=== PATIENT | female | born 1950 | race Two or more races ===

== ENCOUNTER 2023-01-28 03:09 | Outpatient (REF) | payer OTHER, SELFPAY ==
[2023-01-28 10:00] LABS: Basophils Absolute Auto 0.1 10^3/uL (0.0-0.1); Eosinophils Absolute Auto 0.2 10^3/uL (0.0-0.7); Eosinophils Percent Auto 3.4 % (0.9-7.0); Hematocrit 29.1 % (36.0-48.0); Hemoglobin 9.4 g/dL (12.0-16.0); Immature Granulocytes Abs Auto 0.01 10^3/uL (0.00-0.03); Immature Granulocytes Pct Auto 0.2 % (0.0-0.5); Lymphocytes Absolute Auto 1.8 10^3/uL (1.2-3.8); Lymphocytes Percent Auto 41.1 % (20.5-60.0); Mean Corpuscular HGB Conc 32.3 g/dL (29.9-35.2); Mean Corpuscular Hemoglobin 34.2 pg (26.7-34.0); Mean Platelet Volume 8.8 fL (9.5-13.5); Monocytes Absolute Auto 0.3 10^3/uL (0.3-0.8); Monocytes Percent Auto 5.7 % (1.7-12.0); Neutrophils Absolute Auto 2.1 10^3/uL (1.4-6.5); Neutrophils Percent Auto 47.6 % (43.0-75.0); Platelet Count 251 10^3/uL (150-450); Red Blood Count 2.75 10^6/uL (4.20-5.40); Red Cell Distribution Width 16.3 % (11.0-15.0); White Blood Count 4.4 10^3/uL (4.0-11.0)
[2023-01-28 10:01] LABS: Mean Corpuscular Volume 105.8 fL (81.0-99.0)
[2023-01-28 11:19] LABS: Alanine Aminotransferase 11 U/L (14-59); Albumin Globulin Ratio 0.6; Albumin Level 2.4 g/dL (3.4-5.0); Alkaline Phosphatase 121 U/L (46-116); Anion Gap 11.3; Aspartate Amino Transferase 12 U/L (15-37); BUN Creatinine Ratio 24.5; Bilirubin Total 0.3 mg/dL (0.2-1.0); Calcium 8.7 mg/dL (8.5-10.1); Carbon Dioxide 24.4 mmol/L (21.0-32.0); Chloride 105 mmol/L (98-107); Estimated GFR (African America 27 (>=60); Estimated GFR (Non-African Ame 22 (>=60); Globulin 4.2 g/dL; Glucose 149 mg/dL (74-106); Potassium 4.7 mmol/L (3.5-5.1); Sodium 136 mmol/L (136-145); Total Protein 6.6 g/dL (6.4-8.2)
== END 2023-01-28 03:10 | disposition home or self-care (01) ==
LOC: LAB 03:09
PROVIDERS: PCP Family Medicine; Visit Provider Family Medicine
DX: Z85.3 Personal history of malignant neoplasm of breast (principal)
CPT/HCPCS: 36415; 80053; 85025; 86300

== ENCOUNTER 2023-03-01 00:26 | Outpatient (REF) | payer OTHER, SELFPAY ==
[2023-03-01 08:51] LABS: Basophils Absolute Auto 0.1 10^3/uL (0.0-0.1); Eosinophils Absolute Auto 0.1 10^3/uL (0.0-0.7); Hematocrit 30.1 % (36.0-48.0); Hemoglobin 9.5 g/dL (12.0-16.0); Immature Granulocytes Abs Auto 0.01 10^3/uL (0.00-0.03); Immature Granulocytes Pct Auto 0.2 % (0.0-0.5); Lymphocytes Absolute Auto 1.4 10^3/uL (1.2-3.8); Lymphocytes Percent Auto 34.5 % (20.5-60.0); Mean Corpuscular HGB Conc 31.6 g/dL (29.9-35.2); Mean Corpuscular Hemoglobin 34.2 pg (26.7-34.0); Mean Corpuscular Volume 108.3 fL (81.0-99.0); Mean Platelet Volume 8.9 fL (9.5-13.5); Monocytes Absolute Auto 0.2 10^3/uL (0.3-0.8); Monocytes Percent Auto 4.2 % (1.7-12.0); Neutrophils Absolute Auto 2.2 10^3/uL (1.4-6.5); Neutrophils Percent Auto 55.1 % (43.0-75.0); Platelet Count 223 10^3/uL (150-450); Red Blood Count 2.78 10^6/uL (4.20-5.40); Red Cell Distribution Width 14.6 % (11.0-15.0); White Blood Count 4.1 10^3/uL (4.0-11.0)
[2023-03-01 09:09] LABS: Alanine Aminotransferase 24 U/L (14-59); Albumin Globulin Ratio 0.7; Albumin Level 2.7 g/dL (3.4-5.0); Alkaline Phosphatase 117 U/L (46-116); Anion Gap 13.7; Aspartate Amino Transferase 15 U/L (15-37); BUN Creatinine Ratio 23.2; Bilirubin Total 0.3 mg/dL (0.2-1.0); Calcium 8.6 mg/dL (8.5-10.1); Carbon Dioxide 25.6 mmol/L (21.0-32.0); Chloride 105 mmol/L (98-107); Estimated GFR (African America 45 (>=60); Estimated GFR (Non-African Ame 37 (>=60); Globulin 3.8 g/dL; Glucose 181 mg/dL (74-106); Potassium 4.3 mmol/L (3.5-5.1); Sodium 140 mmol/L (136-145); Total Protein 6.5 g/dL (6.4-8.2)
== END 2023-03-01 00:27 | disposition home or self-care (01) ==
LOC: LAB 00:26
PROVIDERS: PCP Family Medicine; Visit Provider Family Medicine
DX: Z51.81 Encounter for therapeutic drug level monitoring (principal); Z85.3 Personal history of malignant neoplasm of breast
CPT/HCPCS: 36415; 80053; 85025; 86300

== ENCOUNTER 2023-04-01 05:58 | Outpatient (REF) | payer OTHER, SELFPAY ==
[2023-04-01 09:21] LABS: Hematocrit 31.2 % (36.0-48.0); Hemoglobin 10.1 g/dL (12.0-16.0); Mean Corpuscular HGB Conc 32.4 g/dL (29.9-35.2); Mean Corpuscular Hemoglobin 34.7 pg (26.7-34.0); Mean Corpuscular Volume 107.2 fL (81.0-99.0); Mean Platelet Volume 9.3 fL (9.5-13.5); Platelet Count 155 10^3/uL (150-450); Red Blood Count 2.91 10^6/uL (4.20-5.40); Red Cell Distribution Width 13.4 % (11.0-15.0); White Blood Count 4.4 10^3/uL (4.0-11.0)
[2023-04-01 09:45] LABS: Alanine Aminotransferase 35 U/L (14-59); Albumin Globulin Ratio 0.7; Albumin Level 2.7 g/dL (3.4-5.0); Alkaline Phosphatase 129 U/L (46-116); Anion Gap 11.2; Aspartate Amino Transferase 27 U/L (15-37); BUN Creatinine Ratio 23.7; Bilirubin Total 0.3 mg/dL (0.2-1.0); Calcium 8.7 mg/dL (8.5-10.1); Carbon Dioxide 25.9 mmol/L (21.0-32.0); Chloride 106 mmol/L (98-107); Estimated GFR (African America 48 (>=60); Estimated GFR (Non-African Ame 40 (>=60); Globulin 3.7 g/dL; Glucose 118 mg/dL (74-106); Potassium 5.1 mmol/L (3.5-5.1); Segmented Neut Absolute Manual 1.67 10^3/uL (1.4-6.5); Sodium 138 mmol/L (136-145); Total Protein 6.4 g/dL (6.4-8.2)
[2023-04-01 09:46] LABS: Anisocytosis 1+; Basophils Abs Manual 0.04 10^3/uL (0.00-0.10); Eosinophils Absolute Manual 0.13 10^3/uL (0.00-0.70); Lymphocytes Absolute Manual 2.28 10^3/uL (1.20-3.80); Macrocytosis 1+; Monocytes Absolute Manual 0.26 10^3/uL (0.30-0.80)
== END 2023-04-01 05:59 | disposition home or self-care (01) ==
LOC: LAB 05:58
PROVIDERS: PCP Family Medicine; Visit Provider Family Medicine
DX: I10 Essential (primary) hypertension (principal); Z85.3 Personal history of malignant neoplasm of breast
CPT/HCPCS: 36415; 80053; 85027

== ENCOUNTER 2023-05-01 08:25 | Outpatient (REF) | payer OTHER, SELFPAY ==
--- OUTSIDE RECORDS SUMMARY | 2023-05-01 08:31 | XMS_ITS | CCD ---
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 Name Role Phone Rickey Askew Primary Care Physician [phone] Eva Beard Unavailable Unavailable Zaheer Sloan Attending Unavailable Zaheer Sloan Admitting Unavailable Georgina, Gavino Alfonso Consulting Unavailable Mariia LOPEZ Admitting Unavailable yWatt Murray Attending Unavailable Erickson, Gavino T Consulting Unavailable MARCEL ALVAREZ Consulting Unavailable Erickson, Gavino T Consulting Unavailable Erickson, Gavino T Consulting Unavailable Erickson, Gavino T Consulting Unavailable Erickson, Gavino T Consulting Unavailable Erickson, Gavino T Consulting Unavailable Erickson, Gavino T Consulting Unavailable Erickson, Gavino T Consulting Unavailable Erickson, Gavino T Consulting Unavailable Erickson, Gavino T Consulting Unavailable David Tong Attending Unavailable Radha, Nohemi Gerard Referring Unavailable Trayboske, Nohemi Gerard Attending Unavailable Demboske, [facility] Nohemi Gerard Admitting U navailable Adamowicz, Senthil Admitting Unavailable Adamowicz, Senthil Attending Unavailable Adamowicz, Senthil Attending Unavailable Adamowicz, Senthil Admitting Unavailable Lorie Slater Attending Unavailable aSmmy QUEZADA Attending Unavailable PILAR, Sammy Attending Unavailable Pedro Nava Attending Unavailable Jeffery Murphy Attending Unavailable Trayboske, Nohemi Gerard Attending Unavailable Adamowicz, Senthil Attending Unavailable Adamowicz, Senthil Attending Unavailable Mgowicz, Senthil Attending Unavailable Mgowicz, Senthil Attending Unavailable Sammy QUEZADA Attending Unavailable Adamowicz, Senthil Admitting Unavailabl e Adamowicz, Senthil Referring Unavailable Adamowicz, Senthil Attending Unavailable Adamowicz, Senthil Admitting Unavailable Adamowicz, Senthil Attending Unavailable Adamowicz, Senthil Admitting Unavailable Adamowicz, Senthil Attending Unavailable Allergies Allergy Classification Reported Allergen(s) Allergy Type Date of Onset Reaction(s) Facility (20 sources) Bee/Wasp/Ant venom; Translations: [Bee Stings] Drug allergy Dyspnea (finding) [facility] Work Phone: (20 sources) Penicillins; Translations: [penicillins] Drug allergy Dyspnea (finding) [facility] Work Phone: (20 sources) Sulfonamides (Antibiotic); Translations: [sulfa drugs] Drug allergy Dyspnea (finding) [facility] Work Phone: Medications Current Medications Medication Drug Class(es) Dates Sig (Normalized) Sig (Original) acetaminophen 500 mg oral tablet (6 sources) Start: 11-13-2022 take 2 tablets by mouth every six hours acetaminophen 500 mg Tab 1,000 mg = 2 tab(s), Oral, q6hr, Refills(s) 0 Start Date: 11/13/22 Status: Ordered anastrozole 1 mg oral tablet (20 sources) Aromatase Inhibitor Start: 08-01-2021 take 1 tablet by mouth once daily anastrozole 1 mg Tab 1 mg = 1 tab(s), Oral, Daily, # 30 tab(s), Refills(s) 11, called to pharmacy (Rx) Start Date: 10/29/22 Status: Ordered cephalexin 500 mg oral capsule (2 sources) Cephalosporin Antibacterial Start: 12-19-2022 End: 12-26-2022 take 1 capsule by mouth four times daily Keflex 500 mg Cap 500 mg = 1 cap(s), Oral, QID, X 7 day(s), # 28 cap(s), Refills(s) 0, Pharmacy: [facility], 167.6, cm, 12/19/22 20:43:00 EDT, Height/Length Dosing, 87.1, kg, 12/19/22 20:43:00 EDT, Weight Dosing Start Date: 12/19/22 Stop Date: 12/26/22 Status: Ordered Cinnamon Preparation (19 sources) Non-Standardized Food Allergenic Extract Start: 09-07-2021 Cinnamon 1,000 mg, Daily, Refills(s) 0 Start Date: 09/07/21 Status: Ordered Fish Oils (20 sources) Start: 07-03-2021 take 1 capsule by mouth once daily Fish Oil 1000 mg oral capsule 1,000 mg = 1 cap(s), Oral, Daily, Refills(s) 0 Start Date: 07/03/21 Status: Ordered furosemide 40 mg oral tablet (20 sources) Loop Diuretic Start: 07-03-2021 take 1 tablet by mouth once daily furosemide 40 mg Tab 40 mg = 1 tab(s), Oral, Daily, Refills(s) 0 Start Date: 07/03/21 Status: Ordered Kisqali (200 mg daily dose) (20 sources) Start: 09-07-2021 Kisqali (200 mg daily dose) 200 mg, TID, Refills(s) 0 Start Date: 09/07/21 Status: Ordered melatonin 5 mg oral tablet (6 sources) Start: 11-13-2022 take 1 tablet by mouth once daily at bedtime as needed melatonin 5 mg oral tablet 5 mg = 1 tab(s), Oral, Once a day (at bedtime), PRN for insomnia, # 60 tab(s), Refills(s) 0 Start Date: 11/13/22 Status: Ordered ondansetron 8 mg oral tablet (20 sources) Serotonin-3 Receptor Antagonist Start: 08-24-2021 take 1 tablet by mouth every eight hours as needed for nausea ondansetron 8 mg Tab 8 mg, Oral, q8hr, PRN Nausea, # 30 tab(s), Refills(s) 3, Pharmacy: [facility], 162.5, cm, 08/10/21 12:38:00 EDT, Height/Length Dosing, 96.5, kg, 08/10/21 12:38:00 EDT, Weight Dosing Start Date: 08/24/21 Status: Ordered oxyCODONE hydrochloride 5 mg oral tablet (1 source) Opioid Agonist Start: 12-17-2022 End: 12-20-2022 take 1 tablet by mouth every six hours oxyCODONE 5 mg Tab 5 mg = 1 tab(s), Oral, q6hr, X 3 day(s), # 15 tab(s), Refills(s) 0, Pharmacy: [facility], 168, cm, 12/17/22 10:29:00 EDT, Height/Length Dosing, 87, kg, 12/17/22 10:29:00 EDT, Weight Dosing Start Date: 12/17/22 Stop Date: 12/20/22 Status: Ordered ribociclib 200 mg oral tablet (20 sources) Start: 05-09-2022 Kisqali (200 mg daily dose) oral tablet See Instructions, 2 tab(s) take for 21 days, withhold for 7 days, then repeat cycle. 11 REFILLS, # 42 tab(s), Refills(s) 1, called to pharmacy (Rx) Start Date: 05/09/22 Status: Ordered Start: 03-29-2022 Kisqali (400 m g daily dose) oral tablet See Instructions, 1 tab by mouth for 21 days, withhold for 7 days then repeat cycle., # 21 tab(s), Refills(s) 1, Pharmacy: [facility], 162.5, cm, 03/28/22 14:05:00 EST, Height/Length Dosing, 96.6, kg, 03/28/22 14:05:00 EST, Weight Do... Start Date: 03/29/22 Status: Ordered Start: 12-27-2021 ribociclib 200 mg oral tablet See Instructions, take 1 tab(s) po days 1-21 take for 21 days, withhold for 7 days, then repeat cycle, # 21 tab(s), Refills(s) 11, called to pharmacy (Rx) Start Date: 03/14/22 Status: Ordered simvastatin 40 mg oral tablet (20 sources) HMG-CoA Reductase Inhibitor Start: 07-03-2021 take 1 tablet by mouth once daily at bedtime simvastatin 40 mg Tab 40 mg = 1 tab(s), Oral, Once a day (at bedtime), Refills(s) 0 Start Date: 07/03/21 Status: Ordered Vitamin B12 1000 mcg Tab (9 sources) Start: 09-27-2022 take 1 tablet by mouth once daily Vitamin B12 1000 mcg Tab 1,000 mcg = 1 tab(s), Oral, Daily, # 30 tab(s), Refills(s) 11, Pharmacy: [facility], 162, cm, 09/08/22 15:14:00 EDT, Height/Length Dosing, 96.4, kg, 09/27/22 13:43:00 EDT, Weight Dosing Start Date: 09/27/22 Status: Ordered Vitamin D3 2000 intl units oral tablet (6 sources) Start: 12-14-2022 take 1 tablet by mouth once daily Vitamin D3 2000 intl units oral tablet 50 mcg = 1 tab(s), Oral, Daily, # 90 tab(s), Refills(s) 4, Pharmacy: [facility], 167, cm, 11/01/22 20:02:00 EDT, Height/Length Dosing, 90.3, kg, 11/01/22 20:02:00 EDT, Weight Dosing Start Date: 12/14/22 Status: Ordered Completed/Discontinued Medications Medication Drug Class(es) Dates Sig (Normalized) Sig (Original) ergocalciferol 1.25 mg oral capsule (2 sources) Provitamin D2 Compound Start: 11-04-2022 take 1 capsule by mouth once daily ergocalciferol 50,000 intl units Cap 50,000 International_Unit = 1 cap(s), Oral, q7day, x 8 wks then 2000 units daily, # 7 cap(s), Refills(s) 0, Pharmacy: [facility], 167, cm, 11/01/22 20:02:00 EDT, Height/Length Dosing, 90.3, kg, 11/01/22 20:02:00 EDT, Weight Dosing Start Date: 11/04/22 Status: Ordered Start: 11-04-2022 ergocalciferol 50,000 intl units Cap 50,000 International_Unit = 1 cap(s), Oral, q7day, # 7 cap(s), Refills(s) 0, Pharmacy: [facility], 167, cm, 11/01/22 20:02:00 EDT, Height/Length Dosing, 90.3, kg, 11/01/22 20:02:00 EDT, Weight Dosing Start Date: 11/04/22 Status: Ordered Insulin Lispro (3 sources) Insulin Analog Start: 12-23-2022 End: 12-23-2022 Insulin Lispro Sliding Scale 0-10 Unit(s), Injection-Insulin, SubCutaneous, Start date 12/23/22 7:30:00 EDT Start Date: 12/23/22 Stop Date: 12/23/22 Status: Completed Start: 12-22-2022 End: 12-22-2022 Insulin Lispro Sliding Scale 0-10 Unit(s), Injection-Insulin, SubCutaneous, Start date 12/22/22 16:30:00 EDT Start Date: 12/22/22 Stop Date: 12/22/22 Status: Completed Start: 12-22-2022 End: 12-22-2022 Insulin Lispro Sliding Scale 0-10 Unit(s), Injection-Insulin, SubCutaneous, Start date 12/22/22 11:30:00 EDT Start Date: 12/22/22 Stop Date: 12/22/22 Status: Completed lisinopril 10 mg oral tablet (20 sources) Angiotensin Converting Enzyme Inhibitor Start: 12-23-2022 End: 12-23-2022 lisinopril 10 mg Tab 10 mg = 1 tab(s), Tab, Oral, Start date 12/23/22 9:00:00 EDT, 12/20/22 20:32:00 EDT Start Date: 12/23/22 Stop Date: 12/23/22 Status: Completed Start: 11-04-2022 End: 11-04-2022 lisinopril 10 mg Tab 10 mg = 1 tab(s), Tab, Oral, Start date 11/04/22 9:00:00 EDT, 11/02/22 12:05:00 EDT Start Date: 11/04/22 Stop Date: 11/04/22 Status: Completed Start: 07-18-2021 take 1 tablet by pio th once daily lisinopril 10 mg Tab 10 mg = 1 tab(s), Oral, Daily, Refills(s) 0 Start Date: 07/18/21 Status: Ordered Start: 07-03-2021 take 1 tablet by pio th once daily lisinopril 5 mg Tab 5 mg = 1 tab(s), Oral, Daily, Refills(s) 0 Start Date: 07/03/21 Status: Ordered Problems Problem Classification Problem Date Documented Date Episodic/Chronic Allergic reactions (1 source) Urticaria; Translations: [Other urticaria] Onset: 09-03-2021 Episodic Cancer of breast (20 sources) Malignant neoplasm of upper-outer quadrant of right female breast; Translations: [Malignant neoplasm of upper-outer quadrant of female breast] Onset: 07-11-2021 Chronic Cancer of breast (10 sources) Personal history of malignant neoplasm of breast; Translations: [History of malignant neoplasm of breast] Onset: 11-02-2022 Episodic Cancer of colon (1 source) Malignant tumor of colon; Translations: [Malignant neoplasm of colon, unspecified] Chronic Deficiency and other anemia (1 source) Anemia; Translations: [Anemia, unspecified] Onset: 12-19-2022 Episodic Delirium, dementia, and amnestic and other cognitive disorders (8 sources) Age-related cognitive decline; Translations: [Age-related cognitive decline] Onset: 12-14-2022 Chronic Diabetes mellitus without complication (20 sources) Diabetes mellitus; Translations: [Type 2 diabetes mellitus without complication] Onset: 11-06-2022 07-03-2021 Chronic Disorders of lipid metabolism (20 sources) Hypercholesterolemia; Translations: [Pure hypercholesterolemia] Onset: 11-02-2022 07-03-2021 Chronic E Codes: Fall (1 source) Fall; Translations: [Unspecified fall, initial encounter] Onset: 12-17-2022 Episodic Essential hypertension (20 sources) Hypertensive disorder; Translations: [Essential hypertension] Onset: 11-02-2022 07-03-2021 Chronic Fluid and electrolyte disorders (1 source) Dehydration; Translations: [Dehydration] Onset: 12-19-2022 Episodic Lymphadenitis (20 sources) Axillary lymphadenopathy 07-25-2021 Episodic Malaise and fatigue (2 sources) Asthenia; Translations: [Weakness] Onset: 11-02-2022 Episodic Nonmalignant breast conditions (20 sources) Lump of upper outer quadrant of breast 07-04-2021 Episodic Nutritional deficiencies (9 sources) Vitamin D deficiency; Translations: [Vitamin D deficiency, unspecified] Onset: 11-06-2022 Chronic Other aftercare (1 source) Long-term current use of drug therapy; Translations: [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] Onset: 11-02-2022 Episodic Other connective tissue disease (2 sources) Recurrent falls ; Translations: [Repeated falls] Onset: 11-02-2022 Episodic Other fractures (7 sources) Multiple pelvic fractures; Translations: [Multiple fractures of pelvis with stable disruption of pelvic ring, subsequent encounter for fracture with routine healing] Onset: 12-13-2022 Episodic Other fractures (1 source) Closed fracture lumbar vertebra, wedge ; Translations: [Wedge compression fracture of unspecified lumbar vertebra, initial encounter for closed fracture] Onset: 12-17-2022 Episodic Other nutritional; endocrine; and metabolic disorders (20 sources) Body mass index 30+ - obesity 07-04-2021 Chronic Pathological fracture (9 sources) H/O: fragility fracture; Translations: [Personal history of (healed) osteoporosis fracture] Onset: 11-06-2022 Episodic Residual codes; unclassified (20 sources) Edema 07-03-2021 Episodic Secondary malignancies (1 source) Secondary malignant neoplasm of bone; Translations: [Secondary malignant neoplasm of bone] Onset: 01-30-2023 Chronic Urinary tract infections (3 sources) Urinary tract infectious disease; Translations: [Urinary tract infection, site not specified] Onset: 12-19-2022 Episodic Results Test Name Value Interpretation Reference Range Facility ONC - Otheron 02-07-2023 ONC - Other [id number]#1.00TIFF Normal [facility] Physician Orderon 02-05-2023 Physician Order [id number]#1.00TIFF [facility] Consent for Treatmenton 01-20 Consent for Treatment [id number]#1.00TIFF [facility] Oncology Noteon 01-30-2023 Oncology Note Normal [facility] Comment on above: Result Comment: Elec tronically Signed By: Jane FARMER, Yolande Houston\.br\Date and Time Signed: 01/30/23 17:07 EDT Oncology Progress Noteon Oncology Progress Note Normal [facility] 01-29-2023 Outside [facility] [id number]#1.00TIF F [facility] [id number]#1.00TIF F [facility] 01-28-2023 Outside Labs [id number]#1.00TIFF [facility] Coding Queryon 01-16-2023 Coding Query [facility] ONC - Otheron 01-16-2023 ONC - Other [id number]#1.00CD:1 27 [facility] ONC - Otheron 01-09-2023 ONC - Other [id number]#1.00CD:1 27 [facility] Discharge Instructionson Discharge Instructions [id number]#1.00CD:1 27 [facility] Transfer Documentson 023 Transfer Documents [id number]#1.00CD:1 [facility] CHEMISTRYOrdered By: Elma BRYANT User on 12-23-2022 Glucose [Mass/Vol] 111 mg/dL High 55 - 99 mg/dL [facility] [place] Comment on above: Result Comment: Navin BOSE POC Device SN [id number] Invalid Interpretation Code [facility] [place] Subsection POC User ID [id number] Invalid Interpretation Code [facility] [place] Subsection POC Username MINOO JUAN Invalid Interpretation Code [facility] [place] Subsection Capillary Glucose POCon Glucose [Mass/Vol] 111 mg/dL High 55-99 [facility] Comment on above: Result Comment: Navin BOSE Performed By: #### 2 [id number] ####[facility] [address] [place] [address] Discharge Note-Nursingon Discharge Note-Nursing [facility] C Urineon 12-22-2022 Bacteria identified Cx Nom (U) [facility] Comment on above: Performed By: #### 1 [id number] ####[facility] [address] [place] [address] CHEMISTRYOrdered By: Lab ROP User on 12-22-2022 Glucose [Mass/Vol] 155 mg/dL High 55 - 99 mg/dL [facility] [place] Subsection Comment on above: Result Comment: Navin BOSE POC Device SN [id number] Invalid Interpretation Code FT POC Subsection POC User ID [id number] Invalid Interpretation Code FT POC Subsection POC Username DARRYN SANTOS Invalid Interpretation Code FT POC Subsection Glucose [Mass/Vol] 129 mg/dL High 55 - 99 mg/dL [facility] [place] Subsection Comment on above: Result Comment: Christine donna Meter POC Device SN [id number] Invalid Interpretation Code FT POC Subsection POC User ID [id number] Invalid Interpretation Code FT POC Subsection POC Username ROOPA LIM Invalid Interpretation Code [facility] [place] Subsection Capillary Glucose POCon Glucose [Mass/Vol] 155 mg/dL High 55-99 [facility] Comment on above: Result Comment: Navin BOSE Performed By: #### 2 [id number] ####[facility] [address] [place] [address] Glucose [Mass/Vol] 129 mg/dL High 55-99 [facility] Comment on above: Result Comment: Christine donna Meter Performed By: #### 2 [id number] ####[facility] [address] [place] [address] Glucose [Mass/Vol] 158 mg/dL High 55-99 [facility] Comment on above: Result Comment: Chrsitine donna Meter Performed By: #### 2 [id number] ####[facility] [address] [place] [address] Glucose [Mass/Vol] 144 mg/dL High 55-99 [facility] Comment on above: Result Comment: Navin BOSE Performed By: #### 2 [id number] ####[facility] [address] [place] [address] 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 Note - Attila e Manageron 12-22-2022 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 Normal [facility] Comment on above: Result Comment: Elec tronically Signed By: Enoc RN, Jolanta\.br\Date and Time Signed: 12/22/22 16:25 EDT Progress Note-Physicianon Progress Note-Physician Normal [facility] Comment on above: Result Comment: Elec tronically Signed By: Nathalia LUDWIG, Zaheer Song.br\Date and Time Signed: 12/22/22 09:47 EDT Auto Diffon 12-21-2022 Basophils/100 WBC (Bld) 2.6 % High 0.0-2.0 [facility] Comment on above: Order Comment: Order Added by Discern Expert. Performed By: #### 2 [id number], 3391736, 1573460, [id number], [id number] ####[facility] [address] [place] [address] Basophils/Leukocytes Auto (Bld) [Pure # fraction] 0.1 E9/L Normal 0.0-0.2 [facility] Comment on above: Order Comment: Order Added by Discern Expert. Performed By: #### 2 603124, 3275417, 3867386, [id number], [id number] ####[facility] [address] [place] [address] Eosinophils/100 WBC (Bld) 2.5 % Normal 0.0-8.0 [facility] Comment on above: Order Comment: Order Added by Faviola Expert. Performed By: #### 2 876767, 7599553, 1863902, 78092550, [id number] ####[facility] [address] [place] [address] Eosinophils/Leukocytes Auto (Bld) [Pure # fraction] 0.1 E9/L Normal 0.0-0.5 [facility] Comment on above: Order Comment: Order Added by Discern Expert. Performed By: #### 2 392434, 1460784, 8947953, [id number], [id number] ####[facility] [address] [place] [address] Lymphocytes/100 WBC (Bld) 42.1 % Normal 14.0-50.0 [facility] Comment on above: Order Comment: Order Added by Discern Expert. Performed By: #### 2 373524, 9292042, 2914133, 13346859, [id number] ####[facility] [address] [place] [address] Lymphocytes/Leukocytes Auto (Bld) [Pure # fraction] 1.4 E9/L Normal 1.0-4.0 [facility] Comment on above: Order Comment: Order Added by Discern Expert. Performed By: #### 2 514124, 1841532, 2874488, 09182661, [id number] ####[address] [place] [address] Monocytes/100 WBC (Bld) 13.6 % Normal 4.0-14.0 [facility] Comment on above: Order Comment: Order Added by Discern Expert. Performed By: #### 2 643597, 0290531, 5567026, 39077697, [id number] ####[address] [address] Monocytes/Leukocytes Auto (Bld) [Pure # fraction] 0.4 E9/L Normal 0.2-1.0 [facility] Comment on above: Order Comment: Order Added by Discern Expert. Performed By: #### 2 294093, 1565204, 3161107, 74049598, [id number] ####[address] [place] [address] Neutrophils/100 WBC (Bld) 39.2 % Normal 36.0-75.0 [facility] Comment on above: Order Comment: Order Added by Discern Expert. Performed By: #### 2 368751, 5542376, 4299474, 57840056, [id number] ####[address] [place] [address] Neutrophils/Leukocytes Auto (Bld) [Pure # fraction] 1.3 E9/L Low 2.0-7.5 [facility] Comment on above: Order Comment: Order Added by Discern Expert. Performed By: #### 2 153132, 0167285, 4353170, [id number], [id number] ####[address] [place] [address] BMPon 12-21-2022 Anion gap [Moles/Vol] 11 mmol/L Normal 6-16 [facility] Comment on above: Performed By: #### 2 235492, 0499146, 0931633, 25261278, [id number] ####[facility] [address] [place] [address] Calcium [Mass/Vol] 8.9 mg/dL Normal 8.9-11.1 [facility] Comment on above: Performed By: #### 2 763738, 8331176, 1865485, 09397716, [id number] ####[facility] [address] [place] [address] Chloride [Moles/Vol] 112 mmol/L High 101-111 [facility] Comment on above: Performed By: #### 2 639430, 2326761, 4261904, 39438513, [id number] ####[facility] [address] [place] [address] CO2 [Moles/Vol] 22 mmol/L Normal 21-31 [facility] Comment on above: Performed By: #### 2 550472, 5263220, 0014940, 69361859, [id number] ####[facility] [address] [place] [address] Creatinine [Mass/Vol] 1.4 mg/dL High 0.5-1.3 [facility] Comment on above: Performed By: #### 2 991860, 1339280, 7494946, 83191933, [id number] ####[facility] [address] [place] [address] Glucose [Mass/Vol] 102 mg/dL Normal 55-199 [facility] Comment on above: Result Comment: If t his glucose result represents a fasting glucose, interpretation should refer to the following reference range: 55-99 mg/dL Performed By: #### 2 019156, 0189654, 3417693, 78445368, [id number] ####[facility] [address] [place] [address] Potassium [Moles/Vol] 4.0 mmol/L Normal 3.5-5.3 [facility] Comment on above: Performed By: #### 2 519868, 5478682, 3873166, 00858716, [id number] ####[facility] [address] [place] [address] Sodium [Moles/Vol] 141 mmol/L Normal 135-145 [facility] Comment on above: Performed By: #### 2 654024, 4653440, 0916913, 75509518, [id number] ####[facility] [address] [place] [address] Urea nitrogen [Mass/Vol] 36 mg/dL High 5-21 [facility] Comment on above: Performed By: #### 2 555319, 2119096, 9722142, 62092489, [id number] ####[facility] [address] [place] [address] Urea nitrogen/Creatinine [Mass ratio] 26 No Units High 10-20 [facility] Comment on above: Performed By: #### 2 197401, 6666815, 1851476, 31525560, [id number] ####[facility] [address] [place] [address] C Urineon 12-21-2022 Bacteria identified Cx Nom (U) Normal [facility] Comment on above: Performed By: #### 1 [id number], [id number] ####[facility] [address] [place] [address] CBC w/ Auto Diffon Erythrocyte distribution width (RBC) [Ratio] 18.4 % High 10.9-14.2 [facility] [facility] Comment on above: Performed By: #### 2 327506, 3365609, 0879040, 64034516, [id number] ####[facility] [address] [place] [address] Hematocrit (Bld) [Volume fraction] 26.8 % Low 34.0-46.0 [facility] Comment on above: Performed By: #### 2 606243, 0934063, 3088372, 00432585, 435526333 ####[facility] [address] [place] [address] Hemoglobin (Bld) [Mass/Vol] 9.3 g/dL Low 12.0-16.0 [facility] Comment on above: Performed By: #### 2 204567, 3037982, 3020536, 82623594, [id number] ####[address] [address] MCH (RBC) [Entitic mass] 34.3 pg High 27.0-34.0 [facility] Comment on above: Performed By: #### 2 178223, 3221195, 8259963, 17030089, 070101641 ####[address] [address] MCHC (RBC) [Mass/Vol] 34.8 g/dL Normal 31.4-36.0 [facility] Comment on above: Performed By: #### 2 077567, 4966794, 6110942, 01706562, 465570085 ####[address] [address] MCV (RBC) [Entitic vol] 98.6 fL Normal 80.0-100.0 F [facility] Comment on above: Performed By: #### 2 042975, 9982212, 9822093, 62978667, 058964224 ####[facility] [address] [place] [address] Platelet mean volume (Bld) [Entitic vol] 6.8 fL Normal 6.4-10.8 [facility] Comment on above: Performed By: #### 2 031320, 5139646, 7408858, 49415673, 653407382 ####[address] [address] Platelets (Bld) [#/Vol] 201.0 E9/L Normal 150. 0-500. 0 [facility] Comment on above: Performed By: #### 2 397282, 1965996, 3166530, 58382451, 897001673 ####[facility] [address] [place] [address] RBC (Bld) [#/Vol] 2.7 E12/L Low 4.3-5.9 [facility] Comment on above: Performed By: #### 2 141710, 7266460, 7916503, 81483200, 829657869 ####[facility] [address] [place] [address] WBC corrected for nucl RBC Auto (Bld) [#/Vol] 3.3 E9/L Low 4.0-11.0 [facility] Comment on above: Performed By: #### 2 799542, 1382988, 0440172, 42636590, 539276185 ####[facility] [address] [place] [address] CHEMISTRYOrdered By: SYSTEM SYSTEM on 12-21-2022 Anion gap [Moles/Vol] 11 mmol/L Normal 6 - 16 mEq/L [facility] Calcium [Mass/Vol] 8.9 mg/dL Normal 8.9 - 11. 1 mg/dL [facility] Chloride [Moles/Vol] 112 mmol/L High 101 - 1 11 mmol/L [facility] CO2 [Moles/Vol] 22 mmol/L Normal 21 - 31 mmol/L [facility] Creatinine [Mass/Vol] 1.4 mg/dL High 0.5 - 1.3 mg/dL [facility] GFR/1.73 sq M.predicted among non-blacks MDRD (S/P/Bld) [Vol rate/Area] 40 mL/min/1.73 m2 Low >=59mL/min /1.73 m2 [facility] [place] S Glucose [Mass/Vol] 102 mg/dL Normal 55 - 199 mg/dL [facility] Potassium [Moles/Vol] 4.0 mmol/L Normal 3.5 - 5.3 mmol/L [facility] Sodium [Moles/Vol] 141 mmol/L Normal 135 - 145 mmol/L [facility] [place] [facility] Urea nitrogen [Mass/Vol] 36 mg/dL High 5 - 21 mg/dL [facility] [place] Remisol Urea nitrogen/Creatinine [Mass ratio] 26 mg/mg High 10 - 20 [facility] [place] Remisol CHEMISTRYOrdered By: Gavino Lyle on 12-21-2022 HbA1c (Bld) [Mass fraction] 7.1 % High <=5.9% [facility] [place] ChemAutoSS Capillary Glucose POCon Glucose [Mass/Vol] 127 mg/dL High 55-99 [facility] Comment on above: Result Comment: Navin BOSE Performed By: #### 2 [id number] ####[facility] [address] [place] [address] Glucose [Mass/Vol] 160 mg/dL High 55-99 [facility] Comment on above: Result Comment: Navin BOSE Performed By: #### 2 [id number] ####[facility] [address] [place] [address] Glucose [Mass/Vol] 132 mg/dL High 55-99 [facility] Comment on above: Result Comment: Navin BOSE Performed By: #### 2 [id number] ####[facility] [address] [place] [address] Glucose [Mass/Vol] 115 mg/dL High 55-99 [facility] Comment on above: Result Comment: Navin BOSE Performed By: #### 2 [id number] ####[facility] [address] [place] [address] HEMATOLOGYOrdered By: SYSTEM SYSTEM on 12-21-2022 Basophils/100 WBC (Bld) 2.6 % High 0.0 - 2.0 % [facility] [place] HemeAutoSS Basophils/Leukocytes Auto (Bld) [Pure # fraction] 0.1 E9/L Normal 0.0 - 0.2 E9/L [facility] [place] [facility] Eosinophils/100 WBC (Bld) 2.5 % Normal 0.0 - 8.0 % [facility] [place] HemeAutoSS Eosinophils/Leukocytes Auto (Bld) [Pure # fraction] 0.1 E9/L Normal 0.0 - 0.5 E9/L [facility]eAutoSS Lymphocytes/100 WBC (Bld) 42.1 % Normal 14.0 - 50.0 % [facility]eAutoSS Lymphocytes/Leukocytes Auto (Bld) [Pure # fraction] 1.4 E9/L Normal 1.0 - 4.0 E9/L [facility] HemeAutoSS Monocytes/100 WBC (Bld) 13.6 % Normal 4.0 - 14.0 % [facility] HemeAutoSS Monocytes/Leukocytes Auto (Bld) [Pure # fraction] 0.4 E9/L Normal 0.2 - 1.0 E9/L [facility] HemeAutoSS Neutrophils/100 WBC (Bld) 39.2 % Normal 36.0 - 75.0 % [facility]eAutoSS Neutrophils/Leukocytes Auto (Bld) [Pure # fraction] 1.3 E9/L Low 2.0 - 7.5 E9/L [facility] HemeAutoSS HEMATOLOGYOrdered By: Helen sloan on 12-21-2022 Erythrocyte distribution width (RBC) [Ratio] 18.4 % High 10.9 - 14.2 % [facility]eAutoSS Hematocrit (Bld) [Volume fraction] 26.8 % Low 34.0 - 46.0 % [facility]eAutoSS Hemoglobin (Bld) [Mass/Vol] 9.3 g/dL Low 12.0 - 16.0 gm/dL [facility] HemeAutoSS MCH (RBC) [Entitic mass] 34.3 pg High 27.0 - 34.0 pg [facility] HemeAutoSS MCHC (RBC) [Mass/Vol] 34.8 g/dL Normal 31.4 - 36.0 gm/dL [facility] HemeAutoSS MCV (RBC) [Entitic vol] 98.6 fL Normal 80.0 - 100.0 fL [facility] HemeAutoSS Platelet mean volume (Bld) [Entitic vol] 6.8 fL Normal 6.4 - 10.8 fL [facility] HemeAutoSS Platelets (Bld) [#/Vol] 201.0 E9/L Normal 150. 0 - 500.0 E9/L [facility] HemeAutoSS RBC (Bld) [#/Vol] 2.7 E12/L Low 4.3 - 5.9 E12/L [facility] HemeAutoSS WBC corrected for nucl RBC Auto (Bld) [#/Vol] 3.3 E9/L Low 4.0 - 11.0 E9/L [facility] [place] [facility]eAutoSS [id number] 12-21-2022 HbA1c (Bld) [Mass fraction] 7.1 % High <=5.9 [facility] Comment on above: Performed By: #### 2 142841, 6508481, 7750317, 92918772, [id number] ####[facility] [address] [place] [address] Insurance Correspondence Off iceon 12-21-2022 Insurance Correspondence Office [id number]#1.00CD:12 7 Normal [facility] 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 Note - Attila e Manageron 12-21-2022 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 Normal [facility] Comment on above: Result Comment: Elec tronically Signed By: Brooklynn Connor\.br\Date and Time Signed: 12/21/22 11:15 EDT 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 Note - Rafat n 12-21-2022 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 Note - OT Normal [facility] 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 Note - PTo n 12-21-2022 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 Note - PT Normal [facility] 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 Note - Soc ial Workeron 12-21-2022 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 Note - Washer Meat Normal [facility] Message from Medicareon Message from Medicare [id number]#1.00CD:12 7 Normal [facility] Progress Note-Physicianon Progress Note-Physician Normal [facility] Comment on above: Result Comment: Elec tronically Signed By: Zaheer Sloan DO\Date and Time Signed: 12/21/22 14:15 EDT eGFRon 12-21-2022 GFR/1.73 sq M.predicted among non-blacks MDRD (S/P/Bld) [Vol rate/Area] 40 mL/min/1.73 m2 Low >=59 [facility] Comment on above: Order Comment: Order added by Discern Expert. Result Comment: Cloth Mender aubrey kidney disease could be indicated at eGFR's of less than 60 mL/min/1.73m2. Kidney failure is indicated at less than 15 mL/min/1.73m2. Performed By: #### 2 558570, 9096747, 4243934, 34991736, [id number] ####[facility] [address] [place] [address] Auto Diffon 12-20-2022 Basophils/100 WBC (Bld) 3.5 % High 0.0-2.0 [facility] Comment on above: Order Comment: Order Added by Discern Expert. Performed By: #### 2 756674, 3863169, 09063072, 0854583, 9967433, 84164662 ####[address] [place] [address] Basophils/Leukocytes Auto (Bld) [Pure # fraction] 0.1 E9/L Normal 0.0-0.2 [facility] Comment on above: Order Comment: Order Added by Discern Expert. Performed By: #### 2 821845, 1124147, 15710491, 8698602, 6593889, 54498133 ####[address] [place] [address] Eosinophils/100 WBC (Bld) 1.3 % Normal 0.0-8.0 [facility] Comment on above: Order Comment: Order Added by Discern Expert. Performed By: #### 2 260315, 4125942, 28343358, 1348219, 7683248, 32117237 ####[address] [place] [address] Eosinophils/Leukocytes Auto (Bld) [Pure # fraction] 0.0 E9/L Normal 0.0-0.5 [facility] Comment on above: Order Comment: Order Added by Discern Expert. Performed By: #### 2 144071, 8567015, 59002064, 9233509, 4553031, 73438261 ####[address] [place] [address] Lymphocytes/100 WBC (Bld) 28.4 % Normal 14.0-50.0 [facility] Comment on above: Order Comment: Order Added by Discern Expert. Performed By: #### 2 909220, 0413827, 18488410, 9160292, 6365787, 89795661 ####[address] [address] Lymphocytes/Leukocytes Auto (Bld) [Pure # fraction] 1.1 E9/L Normal 1.0-4.0 [facility] Comment on above: Order Comment: Order Added by Discern Expert. Performed By: #### 2 938581, 8859217, 70488658, 7080223, 3216263, 54513896 ####[address] [address] Monocytes/100 WBC (Bld) 12.5 % Normal 4.0-14.0 [facility] Comment on above: Order Comment: Order Added by Faviola Expert. Performed By: #### 2 225129, 1429620, 20114388, 2418422, 9753769, 33830860 ####[address] [address] Monocytes/Leukocytes Auto (Bld) [Pure # fraction] 0.5 E9/L Normal 0.2-1.0 [facility] Comment on above: Order Comment: Order Added by Faviola Expert. Performed By: #### 2 545390, 5251739, 42752785, 4811471, 6249418, 24438483 ####[address] [address] Neutrophils/100 WBC (Bld) 54.3 % Normal 36.0-75.0 [facility] Comment on above: Order Comment: Order Added by Faviola Expert. Performed By: #### 2 780948, 9164098, 50026014, 0793825, 6415777, 85787570 ####[address] [place] [address] Neutrophils/Leukocytes Auto (Bld) [Pure # fraction] 2.1 E9/L Normal 2.0-7.5 [facility] Comment on above: Order Comment: Order Added by Discern Expert. Performed By: #### 2 032730, 6967641, 74130570, 1369498, 9921477, 88893576 ####[facility] [address] [place] [address] BMPon 12-20-2022 Creatinine [Mass/Vol] 1.3 mg/dL Normal 0.5-1.3 [facility] Comment on above: Performed By: #### 2 245341, 8594957, 89944254, 4730973, 5812403, 65813723 ####[facility] [address] [place] [address] Urea nitrogen [Mass/Vol] 36 mg/dL High 5-21 [facility] Comment on above: Performed By: #### 2 202754, 3099432, 57712482, 1146783, 0885623, 20148427 ####[facility] [address] [place] [address] Urea nitrogen/Creatinine [Mass ratio] 28 No Units High 10-20 [facility] Comment on above: Performed By: #### 2 384283, 3190641, 67159636, 2383680, 9266180, 07337554 ####[facility] [address] [place] [address] Anion gap [Moles/Vol] 13 mmol/L Normal 6-16 [facility] Comment on above: Performed By: #### 2 565587, 3382186, 29265388, 7417913, 4274992, 56913594 ####[facility] [address] [place] [address] Calcium [Mass/Vol] 9.6 mg/dL Normal 8.9-11.1 [facility] Comment on above: Performed By: #### 2 250404, 2445269, 77474814, 2143466, 2639917, 56348812 ####[facility] [address] [place] [address] Chloride [Moles/Vol] 108 mmol/L Normal 101-111 [facility] Comment on above: Performed By: #### 2 275154, 2738542, 19625621, 9168333, 0701809, 86059470 ####[facility] [address] [place] [address] CO2 [Moles/Vol] 21 mmol/L Normal 21-31 [facility] Comment on above: Performed By: #### 2 262590, 5793485, 01530762, 3573332, 0211896, 95863697 ####[facility] [address] [place] [address] Glucose [Mass/Vol] 136 mg/dL Normal 55-199 [facility] Comment on above: Result Comment: If t his glucose result represents a fasting glucose, interpretation should refer to the following reference range: 55-99 mg/dL Performed By: #### 2 294283, 2192723, 30659648, 1549212, 6507314, 87290111 ####[facility] [address] [place] [address] Potassium [Moles/Vol] 4.2 mmol/L Normal 3.5-5.3 [facility] Comment on above: Performed By: #### 2 872676, 1935809, 16273705, 6081127, 4035063, 61133548 ####[facility] [address] [place] [address] Sodium [Moles/Vol] 138 mmol/L Normal 135-145 [facility] Comment on above: Performed By: #### 2 882137, 1050190, 89880189, 0167861, 4711038, 60543795 ####[facility] [address] [place] [address] CBC w/ Auto Diffon 3 Erythrocyte distribution width (RBC) [Ratio] 19.0 % High 10.9-14.2 [facility] Comment on above: Performed By: #### 2 848853, 6117161, 55056360, 2329273, 8292697, 56803275 ####[address] [address] Hematocrit (Bld) [Volume fraction] 31.3 % Low 34.0-46.0 [facility] Comment on above: Performed By: #### 2 665016, 2994892, 70778431, 9530798, 3934985, 36676054 ####[address] [address] Hemoglobin (Bld) [Mass/Vol] 10.4 g/dL Low 12.0-16.0 [facility] Comment on above: Performed By: #### 2 088055, 3218594, 01197946, 7322520, 1597525, 45874552 ####[address] MCH (RBC) [Entitic mass] 33.3 pg Normal 27.0-34.0 [facility] Comment on above: Performed By: #### 2 509005, 6088712, 29090378, 1487064, 8617731, 44617056 ####[address] [address] MCHC (RBC) [Mass/Vol] 33.3 g/dL Normal 31.4-36.0 [facility] Comment on above: Performed By: #### 2 192719, 5763472, 59609878, 8184353, 6181932, 96160376 ####[address] [address] MCV (RBC) [Entitic vol] 99.8 fL Normal 80.0-100.0 F [facility] Comment on above: Performed By: #### 2 946290, 3025649, 14598852, 5232365, 7989711, 21591518 ####[address] [address] Platelet mean volume (Bld) [Entitic vol] 6.8 fL Normal 6.4-10.8 [facility] Comment on above: Performed By: #### 2 250203, 2822819, 55469121, 1287795, 3422128, 28232014 ####[facility] [address] [place] [address] Platelets (Bld) [#/Vol] 212.0 E9/L Normal 150. 0-500. 0 [facility] Comment on above: Performed By: #### 2 815813, 8733441, 53007626, 0169234, 6002992, 08783555 ####[facility] [address] [place] [address] RBC (Bld) [#/Vol] 3.1 E12/L Low 4.3-5.9 [facility] Comment on above: Performed By: #### 2 927279, 7644109, 15818687, 0223591, 3890845, 97108519 ####[facility] [address] [place] [address] WBC corrected for nucl RBC Auto (Bld) [#/Vol] 3.9 E9/L Low 4.0-11.0 [facility] Comment on above: Performed By: #### 2 349606, 1791807, 86585575, 3171746, 4144275, 98543921 ####[facility] [address] [place] [address] CHEMISTRYOrdered By: SYSTEM SYSTEM on 12-20-2022 Troponin I.cardiac [Mass/Vol] 10.20 pg/mL Normal 10.10 - 27.10 pg/mL [facility] Rem[facility] Albumin [Mass/Vol] 3.5 g/dL Normal 3.3 - 5.0 gm/dL [facility] Albumin/Globulin [Mass ratio] 0.9 {ratio} Low 1.1 - 2.2 [facility] ALP [Catalytic activity/Vol] 101 [iU]/d High 21 - 98 Int._Unit/ L [facility] ALT No additional P-5'-P [Catalytic activity/Vol] 20 [iU]/d Normal 6 - 46 Int._Unit/ L [facility] Anion gap [Moles/Vol] 13 mmol/L Normal 6 - 16 mEq/L [facility] AST [Catalytic activity/Vol] 18 [iU]/d Normal 5 - 43 Int._Unit/ L [facility] Bilirubin [Mass/Vol] 0.9 mg/dL Normal 0.0 - 1 .1 mg/dL [facility] Bilirubin.direct [Mass/Vol] 0.1 mg/dL Normal 0.1 - 0.4 mg/dL [facility] Bilirubin.indirect [Mass or moles/Vol] 0.8 mg/dL Normal 0.1 - 0.9 mg/dL [facility] Calcium [Mass/Vol] 9.6 mg/dL Normal 8.9 - 11. 1 mg/dL [facility] Chloride [Moles/Vol] 108 mmol/L Normal 101 - 1 11 mmol/L [facility] CO2 [Moles/Vol] 21 mmol/L Normal 21 - 31 mmol/L [facility] Creatinine [Mass/Vol] 1.3 mg/dL Normal 0.5 - 1.3 mg/dL [facility] GFR/1.73 sq M.predicted among non-blacks MDRD (S/P/Bld) [Vol rate/Area] 43 mL/min/1.73 m2 Low >=59mL/min /1.73 m2 [facility] Chem S Globulin (S) [Mass/Vol] 3.8 g/dL Normal 1.4 - 4.0 gm/dL [facility] Glucose [Mass/Vol] 136 mg/dL Normal 55 - 199 mg/dL [facility] Potassium [Moles/Vol] 4.2 mmol/L Normal 3.5 - 5.3 mmol/L [facility] Protein [Mass/Vol] 7.3 g/dL Normal 6.0 - 7.8 gm/dL [facility] Sodium [Moles/Vol] 138 mmol/L Normal 135 - 145 mmol/L [facility] Troponin I.cardiac [Mass/Vol] 9.80 pg/mL Low 10.10 - 27.10 pg/mL [facility] Urea nitrogen [Mass/Vol] 36 mg/dL High 5 - 21 mg/dL [facility] Urea nitrogen/Creatinine [Mass ratio] 28 mg/mg High 10 - 20 [facility] Consent for Treatmenton 11-22 Consent for Treatment [id number]#[id number]:12 7 Normal [facility] Consent for Treatment [id number]#1.00CD:1 27 Normal [facility] Discharge Instructionson Discharge Instructions [id number]#1.00CD:1 27 Normal [facility] ED Clinical Summaryon 2022 ED Clinical Summary Normal [facility] ED Clinical Summary Normal [facility] ED Note-Physicianon 12-21-19 ED Note-Physician Normal [facility] Comment on above: Result Comment: Elec tronically Signed By: Pedro Nava DO\.br\Date and Time Signed: 12/20/22 19:22 EDT ED Note-Physician Normal [facility] Comment on above: Result Comment: Elec tronically Signed By: David Tong MD\.br\Date and Time Signed: 12/20/22 00:40 EDT ED Patient Education Noteon 12-20-2022 ED Patient Education Note Normal [facility] ED Patient Education Note Normal [facility] ED Patient Summaryon 023 ED Patient Summary Normal [facility] ED Patient Summary Normal [facility] HEMATOLOGYOrdered By: SYSTEM SYSTEM on 12-20-2022 Basophils/100 WBC (Bld) 3.5 % High 0.0 - 2.0 % [facility]eAutoSS Basophils/Leukocytes Auto (Bld) [Pure # fraction] 0.1 E9/L Normal 0.0 - 0.2 E9/L [facility]eAuto[facility] Eosinophils/100 WBC (Bld) 1.3 % Normal 0.0 - 8.0 % [facility]eAuto[facility] Eosinophils/Leukocytes Auto (Bld) [Pure # fraction] 0.0 E9/L Normal 0.0 - 0.5 E9/L [facility]eAuto[facility] Lymphocytes/100 WBC (Bld) 28.4 % Normal 14.0 - 50.0 % [facility]eAuto[facility] Lymphocytes/Leukocytes Auto (Bld) [Pure # fraction] 1.1 E9/L Normal 1.0 - 4.0 E9/L [facility]eAuto[facility] Monocytes/100 WBC (Bld) 12.5 % Normal 4.0 - 14.0 % [facility]eAuto[facility] Monocytes/Leukocytes Auto (Bld) [Pure # fraction] 0.5 E9/L Normal 0.2 - 1.0 E9/L [facility]eAuto[facility] Neutrophils/100 WBC (Bld) 54.3 % Normal 36.0 - 75.0 % [facility]eAuto[facility] Neutrophils/Leukocytes Auto (Bld) [Pure # fraction] 2.1 E9/L Normal 2.0 - 7.5 E9/L [facility]eAuto[facility] HEMATOLOGYOrdered By: Fausto Lyle on 12-20-2022 Erythrocyte distribution width (RBC) [Ratio] 19.0 % High 10.9 - 14.2 % [facility] Hematocrit (Bld) [Volume fraction] 31.3 % Low 34.0 - 46.0 % [facility]eAuto[facility] Hemoglobin (Bld) [Mass/Vol] 10.4 g/dL Low 12.0 - 16.0 gm/dL [facility]eAuto[facility] MCH (RBC) [Entitic mass] 33.3 pg Normal 27.0 - 34.0 pg [facility]eAuto[facility] MCHC (RBC) [Mass/Vol] 33.3 g/dL Normal 31.4 - 36.0 gm/dL [facility]eAuto[facility] MCV (RBC) [Entitic vol] 99.8 fL Normal 80.0 - 100.0 fL [facility]eAuto[facility] Platelet mean volume (Bld) [Entitic vol] 6.8 fL Normal 6.4 - 10.8 fL [facility] HemeAutoSS Platelets (Bld) [#/Vol] 212.0 E9/L Normal 150. 0 - 500.0 E9/L [facility]eAuto[facility] RBC (Bld) [#/Vol] 3.1 E12/L Low 4.3 - 5.9 E12/L [facility]eAuto[facility] WBC corrected for nucl RBC Auto (Bld) [#/Vol] 3.9 E9/L Low 4.0 - 11.0 E9/L [facility]eAuto[facility] Hep Func Panelon 12-20-2022 Bilirubin.direct [Mass/Vol] 0.1 mg/dL Normal 0.1-0.4 [facility] Comment on above: Performed By: #### 2 402950, 4886791, 19707588, 4466669, 1455895, 17234796 ####[facility] [address] [place] [address] Bilirubin.indirect [Mass or moles/Vol] 0.8 mg/dL Normal 0.1-0.9 [facility] Comment on above: Performed By: #### 2 982338, 0358216, 32361546, 5627703, 3839358, 06833945 ####[address] [address] Albumin [Mass/Vol] 3.5 g/dL Normal 3.3-5.0 [facility] Comment on above: Performed By: #### 2 320959, 9644075, 84102052, 3617665, 2582345, 23270806 ####[address] [address] Albumin/Globulin (S) [Mass conc ratio] 0.9 Low 1.1-2.2 [facility] Comment on above: Performed By: #### 2 782909, 5653285, 14060114, 8284862, 1614813, 68982965 ####[address] [place] [address] ALP [Catalytic activity/Vol] 101 Int._Unit/L High 21-98 [facility] Comment on above: Performed By: #### 2 854815, 9857151, 65128937, 3383305, 0664023, 60700694 ####[facility] [address] [place] [address] ALT No additional P-5'-P [Catalytic activity/Vol] 20 Int._Unit/L Normal 6-46 [facility] Comment on above: Performed By: #### 2 441249, 8549711, 89115634, 5190498, 3904353, 19665746 ####[address] [address] AST [Catalytic activity/Vol] 18 Int._Unit/L Normal 5-43 [facility] Comment on above: Performed By: #### 2 689437, 9390204, 01766363, 7562382, 7721117, 33161914 ####[facility] [address] [place] [address] Bilirubin [Mass/Vol] 0.9 mg/dL Normal 0.0-1.1 [facility] er [facility] Comment on above: Performed By: #### 2 900276, 3632578, 71026117, 7066396, 4915441, 83472774 ####[facility] [address] [place] [address] Globulin (S) [Mass/Vol] 3.8 g/dL Normal 1.4-4.0 F [facility] Comment on above: Performed By: #### 2 644016, 3456366, 40398885, 5557788, 4099575, 73617072 ####[facility] [address] [place] [address] Protein [Mass/Vol] 7.3 g/dL Normal 6.0-7.8 [facility] Comment on above: Performed By: #### 2 818863, 3513998, 45768705, 3835087, 8279856, 90496128 ####[facility] [address] [place] [address] Laboratory - Microbiology an d Antimicrobial susceptibilityOrdered By: Ninfa Sawyer on 12-20-2022 Bacteria identified Cx Nom (U) 1,000 cfu/ml Mixed skin contaminants [facility] Monitor Recordon 12-20-2022 Monitor Record [id number]:1 27 Normal [facility] Monitor Record [id number]:1 27 Normal [facility] Pre-Arrival Noteon Pre-Arrival Note Normal [facility] Troponin 0 Hr.on 12-20-2022 Troponin I.cardiac [Mass/Vol] 9.80 pg/mL Low 10.10-27.1 0 [facility] Comment on above: Result Comment: The 95% CI (Confidence Interval) PPV (Positive Predictive Value) for myocardial infarction in females is 38 pg/mL, in males 51 pg/mL. The results should be used in conjunction with clinical conditions of myocardial infarction.(Access High Sensitivity Troponin I Instructions For Use, [employer], November 2017) Performed By: #### 2 990399, 7564529, 31237041, 8683272, 6572705, 12536374 ####[facility] [address] [place] [address] Troponin 3 Hr.on 12-20-2022 Troponin I.cardiac [Mass/Vol] 10.20 pg/mL Normal 10.10-27.1 0 [facility] Comment on above: Result Comment: The 95% CI (Confidence Interval) PPV (Positive Predictive Value) for myocardial infarction in females is 38 pg/mL, in males 51 pg/mL. The results should be used in conjunction with clinical conditions of myocardial infarction.(Gamestaq High Sensitivity Troponin I Instructions For Use, [employer], November 2017) Performed By: #### 1 [id number] ####[facility] [address] [place] [address] UA With Cult Reflexon 2022 Bilirubin Ql (U) Negative Normal Negative [facility] Comment on above: Performed By: #### 1 5686652, 9364937 ####[facility] [address] [place] [address] Clarity (U) CLEAR Normal Clear [facility] Comment on above: Performed By: #### 1 6292493, 8042186 ####[facility] [address] [place] [address] Color (U) STRAW Abnormal Yellow [facility] Comment on above: Performed By: #### 1 0256929, 3006337 ####[address] [place] [address] Epithelial cells.squamous LM.HPF (Urine sed) [#/Area] 0-2 Normal 0-2 [facility] Comment on above: Performed By: #### 1 7044559, 5883715 ####[facility] [address] [place] [address] Glucose Test strip (U) [Mass/Vol] Negative Normal Negative [facility] Comment on above: Performed By: #### 1 3253443, 9458642 ####[facility] [address] [place] [address] Hemoglobin Ql (U) TRACE Abnormal Negative [facility] Comment on above: Performed By: #### 1 9420557, 0407314 ####[facility] [address] [place] [address] Ketones (U) [Mass/Vol] Negative Normal Negative [facility] Comment on above: Performed By: #### 1 5313053, 6126454 ####[address] [address] Hartly.plasma/Hartly. RBC (Bld) [Mass ratio] 0-3 Normal 0-3 [facility] Comment on above: Performed By: #### 1 1667849, 5129690 ####[facility] [address] [place] [address] Nitrite Ql (U) Negative Normal Negative [facility] Comment on above: Performed By: #### 1 2322000, 6386100 ####[address] [address] pH (U) 5.5 [pH] Invalid Interpretation Code 5.0-9.0 [facility] Comment on above: Performed By: #### 1 0777858, 8872496 ####[facility] [address] [place] [address] Protein (U) [Mass/Vol] Negative Normal Negative [facility] Comment on above: Performed By: #### 1 3136919, 2703256 ####[address] [address] Specific gravity (U) [Rel density] <=1.005 Invalid Interpretation Code 1.005-1.03 0 [facility] Comment on above: Performed By: #### 1 5631905, 7138551 ####[facility] [address] [place] [address] Type of Urine collection method Clean Catch Normal [facility] Comment on above: Performed By: #### 1 4823958, 9475103 ####[facility] [address] [place] [address] Urobilinogen Qn (U) 0.2 {Tj'U}/dL Normal 0.0-1.0 [facility] Comment on above: Performed By: #### 1 4070275, 7625986 ####[facility] [address] [place] [address] WBC Auto Ql (U) 1+ Abnormal Negative [facility] Comment on above: Performed By: #### 1 0205552, 1615647 ####[facility] [address] [place] [address] WBC LM.HPF (Urine sed) [#/Area] 6-15 Abnormal 0-5 [facility] Comment on above: Performed By: #### 1 9001723, 2066629 ####[facility] [address] [place] [address] UA Spec Desc Catheter Normal [facility] Comment on above: Result Comment: Mini cath specimen Performed By: #### 1 8854138, 0843774 ####[facility] [address] [place] [address] Bacteria LM Ql (Urine sed) 2+ /HPF Abnormal Trace [facility] Comment on above: Performed By: #### 1 3349643, 6505158 ####[facility] [address] [place] [address] Bilirubin Ql (U) Negative Normal Negative [facility] Comment on above: Performed By: #### 1 8247426, 7319849 ####[facility] [address] [place] [address] Clarity (U) CLEAR Normal Clear [facility] Comment on above: Performed By: #### 1 7742965, 7350115 ####[address] [address] Color (U) YELLOW Normal Yellow [facility] Comment on above: Performed By: #### 1 2964112, 3330375 ####[address] [address] Epithelial cells.squamous LM.HPF (Urine sed) [#/Area] 0-2 Normal 0-2 [facility] Comment on above: Performed By: #### 1 7883829, 8571325 ####[address] [address] Glucose Test strip (U) [Mass/Vol] Negative Normal Negative [facility] Comment on above: Performed By: #### 1 2924064, 0954600 ####[address] [address] Hemoglobin Ql (U) Negative Normal Negative [facility] Comment on above: Performed By: #### 1 5734850, 2434008 ####[address] [address] Ketones (U) [Mass/Vol] Negative Normal Negative [facility] Comment on above: Performed By: #### 1 6238562, 7386200 ####[address] [address] Hartly.plasma/Hartly. RBC (Bld) [Mass ratio] 0-3 Normal 0-3 [facility] Comment on above: Performed By: #### 1 2535506, 2212183 ####[address] [address] Nitrite Ql (U) Positive Abnormal Negative [facility] Comment on above: Performed By: #### 1 9979105, 5607560 ####[address] [address] pH (U) 6.0 [pH] Invalid Interpretation Code 5.0-9.0 [facility] Comment on above: Performed By: #### 1 2980160, 1373377 ####[address] [place] [address] Protein (U) [Mass/Vol] Negative Normal Negative [facility] Comment on above: Performed By: #### 1 0296021, 3847132 ####[address] [address] Specific gravity (U) [Rel density] 1.025 Invalid Interpretation Code 1.005-1.03 0 [facility] Comment on above: Performed By: #### 1 9280705, 7119215 ####[address] [address] Urobilinogen Qn (U) 0.2 {Tj'U}/dL Normal 0.0-1.0 [facility] Comment on above: Performed By: #### 1 2728027, 0248239 ####[address] [address] WBC Auto Ql (U) TRACE Abnormal Negative [facility] Comment on above: Performed By: #### 1 0030461, 2093082 ####[address] [address] WBC LM.HPF (Urine sed) [#/Area] 0-5 Normal 0-5 [facility] Comment on above: Performed By: #### 1 7817618, 8173147 ####[address] [address] URINALYSISOrdered By: Lisette Medina on 12-20-2022 Bilirubin Ql (U) Negative (12/20/22 5:18 PM) Normal Negative [facility] UA Auto SS Clarity (U) Clear (12/20/22 5:18 PM) Normal Clear [facility] UA Auto SS Color (U) Straw *ABN* (12/20/22 5:18 PM) Invalid Interpretation Code Yellow [facility] UA Auto SS Epithelial cells.squamous LM.HPF (Urine sed) [#/Area] 0-2 /HPF Normal 0-2/HPF [facility] UA Auto SS Glucose Test strip (U) [Mass/Vol] Negative (12/20/22 5:18 PM) Normal Negative [facility] UA Auto SS Hemoglobin Ql (U) Trace *ABN* (12/20/22 5:18 PM) Invalid Interpretation Code Negative [facility] UA Auto SS Ketones (U) [Mass/Vol] Negative (12/20/22 5:18 PM) Normal Negative [facility] UA Auto SS Hartly.plasma/Hartly. RBC (Bld) [Mass ratio] 0-3 /HPF Normal 0-3/HPF [facility] UA Auto SS Nitrite Ql (U) Negative (12/20/22 5:18 PM) Normal Negative [facility] UA Auto SS pH (U) 5.5 *NA* (12/20/22 5:18 PM) Invalid Interpretation Code 5.0 - 9.0 [facility] UA Auto SS Protein (U) [Mass/Vol] Negative (12/20/22 5:18 PM) Normal Negative [facility] UA Auto SS Specific gravity (U) [Rel density] <=1.005 *NA* (12/20/22 5:18 PM) Invalid Interpretation Code 1.005 - 1.030 [facility] UA Auto SS UA Spec Desc Clean Catch (12/20/22 5:18 PM) Normal [facility] UA Auto SS Urobilinogen Qn (U) 0.2372099 {Tj'U}/dL Normal 0.0 - 1.0 EU/dL [facility] UA Auto SS WBC Auto Ql (U) 1+ *ABN* (12/20/22 5:18 PM) Invalid Interpretation Code Negative [facility] UA Auto SS WBC LM.HPF (Urine sed) [#/Area] 6-15 /HPF Invalid Interpretation Code 0-5/HPF [facility] UA Auto SS XR Chest Single Viewon 12-20 XR Chest Single View Normal [facility] XR Chest Single View Normal [facility] eGFRon 12-20-2022 GFR/1.73 sq M.predicted among non-blacks MDRD (S/P/Bld) [Vol rate/Area] 43 mL/min/1.73 m2 Low >=59 [facility] Comment on above: Order Comment: Order added by Discern Expert. Result Comment: Cloth Mender aubrey kidney disease could be indicated at eGFR's of less than 60 mL/min/1.73m2. Kidney failure is indicated at less than 15 mL/min/1.73m2. Performed By: #### 2 771985, 5850212, 70438921, 7316233, 1229514, 99821289 ####[address] [place] [address] Auto Diffon 12-19-2022 Basophils/100 WBC (Bld) 0.4 % Normal 0.0-2.0 [facility] Comment on above: Order Comment: Order Added by Discern Expert. Performed By: #### 1 8488655, 5231755, 2593364, 0248447, 2182136, 88325173, 2308966, 40501557 ####[address] [place] [address] Basophils/Leukocytes Auto (Bld) [Pure # fraction] 0.0 E9/L Normal 0.0-0.2 [facility] Comment on above: Order Comment: Order Added by Faviola Expert. Performed By: #### 1 8557322, 7881512, 5290160, 6924744, 7819354, 38767491, 9782773, 46993105 ####[address] [address] Eosinophils/100 WBC (Bld) 1.6 % Normal 0.0-8.0 [facility] Comment on above: Order Comment: Order Added by Faviola Expert. Performed By: #### 1 8347756, 0100808, 7940647, 7571836, 2979381, 17833123, 0208181, 27142691 ####[address] [place] [address] Eosinophils/Leukocytes Auto (Bld) [Pure # fraction] 0.1 E9/L Normal 0.0-0.5 [facility] Comment on above: Order Comment: Order Added by Faviola Expert. Performed By: #### 1 0303383, 8891659, 5662119, 7323008, 7665163, 14483120, 1235954, 02267622 ####[address] [place] [address] Lymphocytes/100 WBC (Bld) 34.4 % Normal 14.0-50.0 [facility] Comment on above: Order Comment: Order Added by Discern Expert. Performed By: #### 1 5767571, 9418236, 8342550, 2499473, 5957108, 61937662, 4609168, 15067362 ####[address] [place] [address] Lymphocytes/Leukocytes Auto (Bld) [Pure # fraction] 1.2 E9/L Normal 1.0-4.0 [facility] Comment on above: Order Comment: Order Added by Discern Expert. Performed By: #### 1 2552014, 4373478, 9220398, 7928461, 8052216, 48056456, 6148879, 77457122 ####[address] [address] Monocytes/100 WBC (Bld) 12.8 % Normal 4.0-14.0 [facility] Comment on above: Order Comment: Order Added by Faviola Expert. Performed By: #### 1 9974413, 5223323, 6875173, 9093370, 4962418, 46657715, 1093084, 26729828 ####[address] [address] Monocytes/Leukocytes Auto (Bld) [Pure # fraction] 0.4 E9/L Normal 0.2-1.0 [facility] Comment on above: Order Comment: Order Added by Faviola Expert. Performed By: #### 1 0737082, 8668048, 1874026, 3708303, 5963501, 18627648, 8984586, 99394271 ####[address] [place] [address] Neutrophils/100 WBC (Bld) 50.8 % Normal 36.0-75.0 [facility] Comment on above: Order Comment: Order Added by Faviola Expert. Performed By: #### 1 6666163, 6227820, 8471647, 0513619, 9402300, 06353541, 9182084, 06140326 ####[address] [address] Neutrophils/Leukocytes Auto (Bld) [Pure # fraction] 1.7 E9/L Low 2.0-7.5 [facility] Comment on above: Order Comment: Order Added by Discern Expert. Performed By: #### 1 1677563, 7982727, 3922564, 4190657, 1830793, 40686803, 1229471, 04003110 ####[facility] [address] [place] [address] BMPon 12-19-2022 Anion gap [Moles/Vol] 10 mmol/L Normal 6-16 [facility] Comment on above: Performed By: #### 1 6622272, 9473485, 2549522, 0094295, 1274987, 56226997, 9864136, 04655871 ####[facility] [address] [place] [address] Calcium [Mass/Vol] 9.4 mg/dL Normal 8.9-11.1 [facility] Comment on above: Performed By: #### 1 9343687, 6067831, 1283842, 1105599, 0177824, 05355345, 9415540, 99769764 ####[facility] [address] [place] [address] Chloride [Moles/Vol] 111 mmol/L Normal 101-111 [facility] Comment on above: Performed By: #### 1 3646388, 7185598, 9892355, 4734445, 2493804, 40631924, 5919480, 19111583 ####[facility] [address] [place] [address] CO2 [Moles/Vol] 25 mmol/L Normal 21-31 [facility] Comment on above: Performed By: #### 1 4592455, 6626056, 3991420, 5257560, 7488026, 38675003, 3522090, 00720956 ####[facility] [address] [place] [address] Creatinine [Mass/Vol] 1.4 mg/dL High 0.5-1.3 [facility] Comment on above: Performed By: #### 1 9243256, 8297250, 9401930, 5726138, 3887859, 72161115, 5914127, 29232781 ####[facility] [address] [place] [address] Glucose [Mass/Vol] 165 mg/dL Normal 55-199 [facility] Comment on above: Result Comment: If t his glucose result represents a fasting glucose, interpretation should refer to the following reference range: 55-99 mg/dL Performed By: #### 1 5900873, 9883336, 7443369, 5323172, 6211947, 86044770, 6488459, 21517260 ####[facility] [address] [place] [address] Potassium [Moles/Vol] 4.6 mmol/L Normal 3.5-5.3 [facility] Comment on above: Performed By: #### 1 2361714, 1454425, 4138120, 9128015, 9071838, 94706713, 8917368, 01448928 ####[facility] [address] [place] [address] Sodium [Moles/Vol] 141 mmol/L Normal 135-145 [facility] Comment on above: Performed By: #### 1 1125885, 8870983, 2467218, 2615728, 1236980, 61568090, 1275967, 42089362 ####[facility] [address] [place] [address] Urea nitrogen [Mass/Vol] 36 mg/dL High 5-21 [facility] Comment on above: Performed By: #### 1 6554044, 0158446, 1714016, 1668073, 0222664, 90831402, 3232197, 19431299 ####[facility] [address] [place] [address] Urea nitrogen/Creatinine [Mass ratio] 26 No Units High 10-20 [facility] Comment on above: Performed By: #### 1 1272201, 9811986, 6183536, 0060641, 4708858, 19622774, 6985670, 69631637 ####[facility] [address] [place] [address] CBC w/ Auto Diffon 3 Erythrocyte distribution width (RBC) [Ratio] 18.9 % High 10.9-14.2 [facility] Comment on above: Performed By: #### 1 4004022, 9204761, 1282861, 9045222, 8495279, 95700993, 8055254, 09854916 ####[address] [place] [address] Hematocrit (Bld) [Volume fraction] 32.2 % Low 34.0-46.0 [facility] Comment on above: Performed By: #### 1 0929102, 4829584, 6671584, 2300593, 6920151, 46575632, 8024779, 94295992 ####[address] [place] [address] Hemoglobin (Bld) [Mass/Vol] 10.8 g/dL Low 12.0-16.0 [facility] Comment on above: Performed By: #### 1 3687090, 3339852, 2592020, 4890155, 4522188, 57478343, 8534022, 55317660 ####[address] [place] [address] MCH (RBC) [Entitic mass] 33.5 pg Normal 27.0-34.0 [facility] Comment on above: Performed By: #### 1 8367672, 6996665, 9510500, 2203335, 9127248, 12847793, 2925250, 36599897 ####[facility] [address] [place] [address] MCHC (RBC) [Mass/Vol] 33.4 g/dL Normal 31.4-36.0 [facility] Comment on above: Performed By: #### 1 1931494, 4313035, 9094999, 0195528, 9088010, 74667409, 2575539, 28017089 ####[facility] [address] [place] [address] MCV (RBC) [Entitic vol] 100.5 fL High 80.0-100.0 F [facility] Comment on above: Performed By: #### 1 3587557, 1663927, 2746433, 4095573, 6109165, 00661417, 2325264, 79104645 ####[facility] [address] [place] [address] Platelet mean volume (Bld) [Entitic vol] 7.0 fL Normal 6.4-10.8 [facility] Comment on above: Performed By: #### 1 2067040, 5416574, 5976582, 5191997, 2831416, 25092458, 5971123, 48532668 ####[address] [place] [address] Platelets (Bld) [#/Vol] 204.0 E9/L Normal 150. 0-500. 0 [facility] Comment on above: Performed By: #### 1 6190256, 3088303, 3830929, 3475109, 4324485, 30948152, 4908743, 29903448 ####[address] [place] [address] RBC (Bld) [#/Vol] 3.2 E12/L Low 4.3-5.9 [facility] Comment on above: Performed By: #### 1 3839629, 9185044, 0928949, 6495380, 3094417, 28538844, 6362901, 99532320 ####[address] [place] [address] WBC corrected for nucl RBC Auto (Bld) [#/Vol] 3.4 E9/L Low 4.0-11.0 [facility] Comment on above: Performed By: #### 1 6989285, 8447359, 9674022, 7240115, 1335147, 58473139, 8511087, 66906013 ####[facility] [place] [address] CHEMISTRYOrdered By: SYSTEM SYSTEM on 12-19-2022 Albumin [Mass/Vol] 3.5 g/dL Normal 3.3 - 5.0 gm/dL [facility] Remisol Albumin/Globulin [Mass ratio] 1.0 {ratio} Low 1.1 - 2.2 [facility] Remisol ALP [Catalytic activity/Vol] 110 [iU]/d High 21 - 98 Int._Unit/ L [facility] Remisol ALT No additional P-5'-P [Catalytic activity/Vol] 20 [iU]/d Normal 6 - 46 Int._Unit/ L [facility] Remisol Anion gap [Moles/Vol] 10 mmol/L Normal 6 - 16 mEq/L [facility] Remisol AST [Catalytic activity/Vol] 19 [iU]/d Normal 5 - 43 Int._Unit/ L [facility] Remisol Bilirubin [Mass/Vol] 0.4 mg/dL Normal 0.0 - 1 .1 mg/dL [facility] Remisol Bilirubin.direct [Mass/Vol] 0.1 mg/dL Normal 0.1 - 0.4 mg/dL [facility] Remisol Bilirubin.indirect [Mass or moles/Vol] 0.3 mg/dL Normal 0.1 - 0.9 mg/dL [facility] Remisol Calcium [Mass/Vol] 9.4 mg/dL Normal 8.9 - 11. 1 mg/dL [facility] Chloride [Moles/Vol] 111 mmol/L Normal 101 - 1 11 mmol/L [facility] CO2 [Moles/Vol] 25 mmol/L Normal 21 - 31 mmol/L [facility] Remisol Creatinine [Mass/Vol] 1.4 mg/dL High 0.5 - 1.3 mg/dL [facility] Remisol GFR/1.73 sq M.predicted among non-blacks MDRD (S/P/Bld) [Vol rate/Area] 40 mL/min/1.73 m2 Low >=59mL/min /1.73 m2 [facility] S Globulin (S) [Mass/Vol] 3.5 g/dL Normal 1.4 - 4.0 gm/dL [facility] Remisol Glucose [Mass/Vol] 165 mg/dL Normal 55 - 199 mg/dL [facility] Remisol Magnesium [Mass/Vol] 2.0 mg/dL Normal 1.3 - 2 .4 mg/dL [facility]isol Potassium [Moles/Vol] 4.6 mmol/L Normal 3.5 - 5.3 mmol/L [facility] Remisol Protein [Mass/Vol] 7.0 g/dL Normal 6.0 - 7.8 gm/dL [facility] Sodium [Moles/Vol] 141 mmol/L Normal 135 - 145 mmol/L [facility] Remisol Troponin I.cardiac [Mass/Vol] 9.40 pg/mL Low 10.10 - 27.10 pg/mL [facility] Urea nitrogen [Mass/Vol] 36 mg/dL High 5 - 21 mg/dL [facility] Urea nitrogen/Creatinine [Mass ratio] 26 mg/mg High 10 - 20 [facility] COAGULATIONOrdered By: Evert Cordoba on 12-19-2022 aPTT Coag (PPP) [Time] 26.7 s Normal 25.1 - 36.5 second(s) [facility] Auto Coag INR Coag (PPP) [Relative time] 1.0 {INR} Invalid Interpretation Code [facility] Auto Coag PT Coag (PPP) [Time] 11.5 s Normal 9.4 - 1 2.5 second(s) [facility] Auto Coag HEMATOLOGYOrdered By: SYSTEM SYSTEM on 12-19-2022 Basophils/100 WBC (Bld) 0.4 % Normal 0.0 - 2.0 % [facility] HemeAutoSS Basophils/Leukocytes Auto (Bld) [Pure # fraction] 0.0 E9/L Normal 0.0 - 0.2 E9/L [facility] HemeAutoSS Eosinophils/100 WBC (Bld) 1.6 % Normal 0.0 - 8.0 % [facility] HemeAutoSS Eosinophils/Leukocytes Auto (Bld) [Pure # fraction] 0.1 E9/L Normal 0.0 - 0.5 E9/L [facility] HemeAutoSS Lymphocytes/100 WBC (Bld) 34.4 % Normal 14.0 - 50.0 % [facility] HemeAutoSS Lymphocytes/Leukocytes Auto (Bld) [Pure # fraction] 1.2 E9/L Normal 1.0 - 4.0 E9/L [facility] HemeAutoSS Monocytes/100 WBC (Bld) 12.8 % Normal 4.0 - 14.0 % [facility] HemeAutoSS Monocytes/Leukocytes Auto (Bld) [Pure # fraction] 0.4 E9/L Normal 0.2 - 1.0 E9/L [facility] HemeAutoSS Neutrophils/100 WBC (Bld) 50.8 % Normal 36.0 - 75.0 % [facility] HemeAutoSS Neutrophils/Leukocytes Auto (Bld) [Pure # fraction] 1.7 E9/L Low 2.0 - 7.5 E9/L [facility] HemeAutoSS HEMATOLOGYOrdered By: Evert Cordoba on 12-19-2022 Erythrocyte distribution width (RBC) [Ratio] 18.9 % High 10.9 - 14.2 % [facility] HemeAutoSS Hematocrit (Bld) [Volume fraction] 32.2 % Low 34.0 - 46.0 % [facility] HemeAutoSS Hemoglobin (Bld) [Mass/Vol] 10.8 g/dL Low 12.0 - 16.0 gm/dL [facility] HemeAutoSS MCH (RBC) [Entitic mass] 33.5 pg Normal 27.0 - 34.0 pg [facility] HemeAutoSS MCHC (RBC) [Mass/Vol] 33.4 g/dL Normal 31.4 - 36.0 gm/dL [facility] HemeAutoSS MCV (RBC) [Entitic vol] 100.5 fL High 80.0 - 100.0 fL [facility] HemeAutoSS Platelet mean volume (Bld) [Entitic vol] 7.0 fL Normal 6.4 - 10.8 fL [facility] HemeAutoSS Platelets (Bld) [#/Vol] 204.0 E9/L Normal 150. 0 - 500.0 E9/L [facility] HemeAutoSS RBC (Bld) [#/Vol] 3.2 E12/L Low 4.3 - 5.9 E12/L [facility] HemeAutoSS WBC corrected for nucl RBC Auto (Bld) [#/Vol] 3.4 E9/L Low 4.0 - 11.0 E9/L [facility] HemeAutoSS Hep Func Panelon 12-19-2022 Albumin [Mass/Vol] 3.5 g/dL Normal 3.3-5.0 [facility] Comment on above: Performed By: #### 1 8904899, 0607747, 4621807, 4952554, 7643638, 70957621, 5622945, 86492179 ####[address] [place] [address] Albumin/Globulin (S) [Mass conc ratio] 1.0 Low 1.1-2.2 [facility] Comment on above: Performed By: #### 1 3105277, 9644584, 8272713, 5872929, 5738094, 67931390, 0081664, 31592533 ####[address] [place] [address] ALP [Catalytic activity/Vol] 110 Int._Unit/L High 21-98 [facility] Comment on above: Performed By: #### 1 1379005, 4739715, 8776828, 9937174, 1176323, 12266752, 8156221, 09409265 ####[address] [address] ALT No additional P-5'-P [Catalytic activity/Vol] 20 Int._Unit/L Normal 6-46 [facility] Comment on above: Performed By: #### 1 2329193, 3777577, 1429104, 4287284, 5937190, 08823562, 7811409, 72762770 ####[address] [place] [address] AST [Catalytic activity/Vol] 19 Int._Unit/L Normal 5-43 [facility] Comment on above: Performed By: #### 1 7873206, 2714534, 6444829, 2967311, 3824609, 74117681, 5839145, 61719450 ####[address] [place] [address] Bilirubin [Mass/Vol] 0.4 mg/dL Normal 0.0-1.1 [facility] Comment on above: Performed By: #### 1 8106740, 6094020, 6260883, 9528222, 1022368, 47884553, 5455224, 82031905 ####[address] [place] [address] Bilirubin.direct [Mass/Vol] 0.1 mg/dL Normal 0.1-0.4 [facility] Comment on above: Performed By: #### 1 9535052, 1281600, 1173592, 3323162, 7452523, 35744638, 0585922, 82155557 ####[facility] [address] [place] [address] Bilirubin.indirect [Mass or moles/Vol] 0.3 mg/dL Normal 0.1-0.9 [facility] Comment on above: Performed By: #### 1 7398979, 5178668, 9362083, 1202165, 6115289, 46973705, 0671587, 19460852 ####[facility] [address] [place] [address] Globulin (S) [Mass/Vol] 3.5 g/dL Normal 1.4-4.0 [facility] Comment on above: Performed By: #### 1 1365894, 7782694, 5196396, 3254567, 8310599, 11778651, 0541103, 46717031 ####[facility] [address] [place] [address] Protein [Mass/Vol] 7.0 g/dL Normal 6.0-7.8 [facility] Comment on above: Performed By: #### 1 9287960, 9200762, 6694475, 1429517, 6478563, 71872465, 6864762, 98131888 ####[facility] [address] [place] [address] Laboratory - Microbiology an d Antimicrobial susceptibilityOrdered By: Jeaneth Morfin on 12-19-2022 Bacteria identified Cx Nom (U) >100,000 cfu/ml Gram Negative Glynn Verifier species [facility] Magnesiumon 12-19-2022 Magnesium [Mass/Vol] 2.0 mg/dL Normal 1.3-2.4 [facility] Comment on above: Performed By: #### 1 6004174, 9946319, 0490073, 9176696, 1316182, 50222432, 9336556, 50536657 ####[facility] [address] [place] [address] PT & PTTon 12-19-2022 aPTT Coag (PPP) [Time] 26.7 second(s) Normal 25.1-36.5 [facility] Comment on above: Result Comment: Para meter 15 days - 4 weeks 1 - 5 months 6 - 11 months 1 - 5 years 6 - 10 years 11 - 17 years PTT Mean: 35.4 (27.6-45.6) Mean: 33.5 (24.8-40.7) Mean: 32.4 (25.1-40.7) Mean: 31.6 (24.0-39.2) Mean: 31.6 (26.9-38.7) Mean: 31.0 (24.6-38.4) Pediatric Reference ranges were obtained from a study by Eyal Fitzgerald et al. prepared from 1437 samples obtained at 7 different centers using the same coagulation reagent and instrumentation [place] [facility] [place] Currently there are no coagulation studies available worldwide for children to 14 days, and no normal ranges. Heparin therapeutic range (represented by Anti-Factor Xa activity of 0.2 - 0.4 U/mL) corresponds to PTT of 56.6 - 109.0 sec. Performed By: #### 1 0722248, 5681742, 2774700, 4634041, 5023670, 19457270, 1005978, 04789547 ####[facility] [address] [place] [address] INR Coag (PPP) [Relative time] 1.0 {INR} Invalid Interpretation Code [facility] Comment on above: Result Comment: INR results are specifically intended to assess patients stabilized on long-term Anticoagulation therapy suggested INR?s ?Less Intensive Anticoagulation? 2.0 ? 3.0Conventional Range 3.0 ? 4.5 Performed By: #### 1 0585142, 2950149, 9767452, 7827618, 1376613, 89309503, 4155836, 73269285 ####[facility] [address] [place] [address] PT Coag (PPP) [Time] 11.5 second(s) Normal 9.4-12.5 [facility] Comment on above: Result Comment: 15 d ays - 4 weeks 1 - 5 months 6 -11 months 1 ? 5 years 6 ? 10 years 11 -17 years Mean: 11.2 (9.5 ? 12.6) Mean: 11.0 (9.7 ? 12.8) Mean: 11.0 (9.8 ? 13.0) Mean: 11.3 (9.9 ? 13.4) Mean: 11.7 (10.0 ? 14.6) Mean: 11.8 (10.0 - 14.1) Pediatric Reference ranges were obtained from a study by Eyal Fitzgerald et al. prepared from 1437 samples obtained at 7 different centers using the same coagulation reagent and instrumentation [place] [facility] [place]. Currently there are no coagulation studies available worldwide for children to 14 days, and no normal ranges. Performed By: #### 1 5581601, 7982644, 2184391, 7874857, 7635618, 28854960, 3872628, 48921879 ####[facility] [address] [place] [address] Pre-Arrival Noteon 3 Pre-Arrival Note Normal [facility] Troponin 0 Hr.on 12-19-2022 Troponin I.cardiac [Mass/Vol] 9.40 pg/mL Low 10.10-27.1 0 [facility] Comment on above: Result Comment: The 95% CI (Confidence Interval) PPV (Positive Predictive Value) for myocardial infarction in females is 38 pg/mL, in males 51 pg/mL. The results should be used in conjunction with clinical conditions of myocardial infarction.(Access High Sensitivity Troponin I Instructions For Use, Gaby Derby, November 2017) Performed By: #### 1 0174998, 8336509, 2673191, 3740628, 2446655, 43112436, 0453849, 18434286 ####[facility] [address] [place] [address] URINALYSISOrdered By: Evert Cordoba on 12-19-2022 Bacteria LM Ql (Urine sed) 2+ /HPF Invalid Interpretation Code Trace/HPF [facility] UA Auto SS Bilirubin Ql (U) Negative (12/19/22 10:25 PM) Normal Negative [facility] UA Auto SS Clarity (U) Clear (12/19/22 10:25 PM) Normal Clear [facility] UA Auto SS Color (U) Yellow (12/19/22 10:25 PM) Normal Yellow [facility] UA Auto SS Epithelial cells.squamous LM.HPF (Urine sed) [#/Area] 0-2 /HPF Normal 0-2/HPF [facility] UA Auto SS Glucose Test strip (U) [Mass/Vol] Negative (12/19/22 10:25 PM) Normal Negative [facility] UA Auto SS Hemoglobin Ql (U) Negative (12/19/22 10:25 PM) Normal Negative [facility] UA Auto SS Ketones (U) [Mass/Vol] Negative (12/19/22 10:25 PM) Normal Negative [facility] UA Auto SS Hartly.plasma/Hartly. RBC (Bld) [Mass ratio] 0-3 /HPF Normal 0-3/HPF [facility] UA Auto SS Nitrite Ql (U) Positive *ABN* (12/19/22 10:25 PM) Invalid Interpretation Code Negative [facility] UA Auto SS pH (U) 6.0 *NA* (12/19/22 10:25 PM) Invalid Interpretation Code 5.0 - 9.0 [facility] UA Auto SS Protein (U) [Mass/Vol] Negative (12/19/22 10:25 PM) Normal Negative [facility] UA Auto SS Specific gravity (U) [Rel density] 1.025 *NA* (12/19/22 10:25 PM) Invalid Interpretation Code 1.005 - 1.030 [facility] UA Auto SS UA Spec Desc Catheter 1 (12/19/22 10:25 PM) Normal [facility] Auto SS Comment on above: Result Comment: Mini cath specimen Urobilinogen Qn (U) 0.7841804 {Tj'U}/dL Normal 0.0 - 1.0 EU/dL [facility] UA Auto SS WBC Auto Ql (U) Trace *ABN* (12/19/22 10:25 PM) Invalid Interpretation Code Negative [facility] UA Auto SS WBC LM.HPF (Urine sed) [#/Area] 0-5 /HPF Normal 0-5/HPF [facility] UA Auto SS eGFRon 12-19-2022 GFR/1.73 sq M.predicted among non-blacks MDRD (S/P/Bld) [Vol rate/Area] 40 mL/min/1.73 m2 Low >=59 [facility] Comment on above: Order Comment: Order added by Discern Expert. Result Comment: Cloth Mender aubrey kidney disease could be indicated at eGFR's of less than 60 mL/min/1.73m2. Kidney failure is indicated at less than 15 mL/min/1.73m2. Performed By: #### 1 1701231, 1198380, 1658170, 4508658, 7418506, 17567172, 0502654, 66557010 ####[facility] [address] [place] [address] CT Spine Lumbar w/o Contrast on 12-17-2022 CT Spine Lumbar w/o Contrast Normal [facility] Consent for Treatmenton 11-21 Consent for Treatment [id number]#1.00CD:1 27 Normal [facility] Discharge Instructionson Discharge Instructions [id number]#1.00CD:1 27 Normal [facility] ED Clinical Summaryon 2022 ED Clinical Summary Normal [facility] ED Note-Physicianon 12-18-19 ED Note-Physician [facility] Comment on above: Result Comment: Elec tronically Signed By: Gui Scruggs PA-C\.br\Date and Time Signed: 12/17/22 13:40 EDT\.br\Electronically Co-Signed By: Jeffery Murphy DO\.br\Date and Time Co-Signed: 12/17/22 18:34 EDT ED Patient Education Noteon 12-17-2022 ED Patient Education Note Normal [facility] ED Patient Summaryon 023 ED Patient Summary Normal [facility] Intermediate Recordson 12-17 Intermediate Records [id number]#1.00CD:1 27 Normal [facility] XR Hip 2-3 Views Right + Pel vison 12-17-2022 XR Hip 2-3 Views Right + Pelvis Normal [facility] XR Spine Lumbosacral 2 or 3 Viewson 12-17-2022 XR Spine Lumbosacral 2 or 3 Views Normal [facility] Family Medicine Office/Clini c Noteon 12-14-2022 Family Medicine Office/Clinic Note Normal [facility] Comment on above: Result Comment: Elec tronically Signed By: Sammy QUEZADA MD\.br\Date and Time Signed: 12/14/22 16:36 EDT ONC - Otheron 12-12-2022 ONC - Other [id number]#1.00CD:1 27 Normal [facility] ONC - Otheron 12-04-2022 ONC - Other [id number]#1.00CD:1 27 Normal [facility] ONC - Otheron 11-21-2022 ONC - Other [id number]#1.00CD:1 27 Normal [facility] XR Pelvis 1 or 2 Viewson XR Pelvis 1 or 2 Views Normal [facility] RAD - MISCon 11-20-2022 RAD - MISC [id number]#1.00CD:1 27 Normal [facility] Family Medicine Office/Clini c Noteon 11-07-2022 [facility] Medicine Office/Clinic Note Normal [facility] Comment on above: Result Comment: Elec tronically Signed By: Sammy QUEZADA MD\.br\Date and Time Signed: 11/06/22 22:21 EDT Consultation Noteon 11-07-19 23 Consultation Note Normal [facility] Comment on above: Result Comment: Elec tronically Signed By: Gavino Erickson DO.br\Date and Time Signed: 11/06/22 07:17 EDT Discharge Documentationon Discharge Documentation [id number]#1.00CD:1 27 Normal [facility] Message from Medicareon 10-20 Message from Medicare [id number]#1.00CD:1 27 Normal [facility] Transfer Documentson 023 Transfer Documents [id number]#1.00CD:1 27 Normal [facility] Insurance Correspondence Off iceon 11-05-2022 Insurance Correspondence Office [id number]#1.00CD:12 7 Normal [facility] Inpatient Clinical Summaryon 11-04-2022 Inpatient Clinical Summary Normal [facility] Inpatient Patient Summaryon 11-04-2022 Inpatient Patient Summary Normal [facility] Inpatient Patient Summary [facility] 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 Note - Attila e Manageron 11-04-2022 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 [facility] Comment on above: Result Comment: Elec tronically Signed By: Florence Ortega\.br\Date and Time Signed: 11/04/22 13:07 EDT CHEMISTRYOrdered By: SYSTEM SYSTEM on 11-03-2022 25-hydroxyvitamin D3 [Mass/Vol] ng/mL Low 30.0 - 100.0 ng/mL [facility] [place] [facility]isol 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 Note - Attila e Manageron 11-03-2022 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 [facility] Comment on above: Result Comment: Elec tronically Signed By: Florence Ortega\.br\Date and Time Signed: 11/03/22 10:38 EDT Progress Note-Physicianon Progress Note-Physician Normal [facility] Comment on above: Result Comment: Elec tronically Signed By: Trevor HANKS, Wyatt\.br\Date and Time Signed: 11/03/22 08:08 EDT RPR with Conf Rfxon 11-04-19 Reagin Ab RPR Ql (S) Non-Reactive Invalid Interpretation Code Non Reactive [facility] Comment on above: Result Comment: Perf ormed at: [facility] [address] [id number] PhD [place] Avelar Performed By: #### 1 2626496, 703953052, 6851206, 7474511 ####[facility] [address] [place] [address] Vitamin D 25 Hydroxyon 11-03 25-hydroxyvitamin D3 [Mass/Vol] ng/mL Low 30.0-100.0 [facility] Comment on above: Result Comment: Vit beltran D deficiency has been defined as a level of serum 25-OH vitamin D less than 20 ng/mL (1,2) by the Dante of Medicine and an Endocrine Society practice guideline. The Endocrine Society further defined vitamin D insufficiency as a level between 21 and 29 ng/mL (2). 1. IOM (Dante of Medicine). 2010. Dietary reference intakes for calcium and D. [place]hipsp [place]: The National Academies Press. 2. Katlin MF, Taylor ISRAEL, Jarad DUKE, et al. Evaluation, treatment, and prevention of vitamin D deficiency: an Endocrine Society clinical practice guideline. JCEM. 2010; 96 (7):1911-30. Performed By: #### 5 [id number] ####[facility] [address] [place] [address] Auto Diffon 11-02-2022 Basophils/100 WBC (Bld) 1.2 % Normal 0.0-2.0 F [facility] Comment on above: Order Comment: Order Added by Discern Expert. Performed By: #### 2 345428, 45291389, 5381727, 2280169, 5449609, 15288160 ####[facility] [address] [place] [address] Basophils/Leukocytes Auto (Bld) [Pure # fraction] 0.1 E9/L Normal 0.0-0.2 [facility] Comment on above: Order Comment: Order Added by Discern Expert. Performed By: #### 2 041466, 28519384, 4806504, 1731978, 2625279, 96345280 ####[facility] [address] [place] [address] Eosinophils/100 WBC (Bld) 3.3 % Normal 0.0-8.0 [facility] Comment on above: Order Comment: Order Added by Discern Expert. Performed By: #### 2 200750, 60406030, 6380340, 3099921, 5622312, 20573061 ####[address] [place] [address] Eosinophils/Leukocytes Auto (Bld) [Pure # fraction] 0.2 E9/L Normal 0.0-0.5 [facility] Comment on above: Order Comment: Order Added by Discern Expert. Performed By: #### 2 115762, 58344990, 4336736, 2765831, 2190322, 11345603 ####[address] [address] Lymphocytes/100 WBC (Bld) 24.6 % Normal 14.0-50.0 [facility] Comment on above: Order Comment: Order Added by Faviola Expert. Performed By: #### 2 548185, 90239170, 7722536, 4315628, 9805334, 35837577 ####[address] [address] Lymphocytes/Leukocytes Auto (Bld) [Pure # fraction] 1.6 E9/L Normal 1.0-4.0 [facility] Comment on above: Order Comment: Order Added by Faviola Expert. Performed By: #### 2 925356, 52642764, 2547696, 0218643, 0179362, 58405054 ####[address] [address] Monocytes/100 WBC (Bld) 5.0 % Normal 4.0-14.0 [facility] Comment on above: Order Comment: Order Added by Faviola Expert. Performed By: #### 2 558428, 78761998, 3308654, 4711678, 7779273, 60033501 ####[address] [place] [address] Monocytes/Leukocytes Auto (Bld) [Pure # fraction] 0.3 E9/L Normal 0.2-1.0 [facility] Comment on above: Order Comment: Order Added by Faviola Expert. Performed By: #### 2 451096, 65017932, 7392072, 5282984, 6342390, 26661688 ####[facility] [address] [place] [address] Neutrophils/100 WBC (Bld) 65.9 % Normal 36.0-75.0 [facility] Comment on above: Order Comment: Order Added by Discern Expert. Performed By: #### 2 294865, 82383369, 3585613, 2432143, 1135402, 12938311 ####[facility] [address] [place] [address] Neutrophils/Leukocytes Auto (Bld) [Pure # fraction] 4.4 E9/L Normal 2.0-7.5 [facility] Comment on above: Order Comment: Order Added by Discern Expert. Performed By: #### 2 684499, 82793925, 7254399, 7733394, 7025343, 40037729 ####[facility] [address] [place] [address] [facility] 11-02-2022 Creatinine [Mass/Vol] 1.3 mg/dL Normal 0.5-1.3 [facility] Comment on above: Performed By: #### 2 471357, 66193381, 8652457, 0731838, 9463192, 50924028 ####[facility] [address] [place] [address] Urea nitrogen [Mass/Vol] 26 mg/dL High 5-21 [facility] Comment on above: Performed By: #### 2 828256, 18751351, 6484297, 9940786, 2245865, 17705077 ####[facility] [address] [place] [address] Urea nitrogen/Creatinine [Mass ratio] 20 No Units Normal 10-20 [facility] Comment on above: Performed By: #### 2 614996, 64402554, 7894289, 3179940, 0616391, 87273702 ####[facility] [address] [place] [address] Anion gap [Moles/Vol] 15 mmol/L Normal 6-16 [facility] Comment on above: Performed By: #### 2 685574, 06608744, 8037347, 1903149, 0702279, 89009147 ####[facility] [address] [place] [address] Calcium [Mass/Vol] 9.1 mg/dL Normal 8.9-11.1 [facility] Comment on above: Performed By: #### 2 007337, 76489678, 6378773, 6549372, 3245706, 69837826 ####[facility] [address] [place] [address] Chloride [Moles/Vol] 105 mmol/L Normal 101-111 [facility] Comment on above: Performed By: #### 2 720012, 03591518, 0911733, 5534299, 1243775, 80080352 ####[facility] [address] [place] [address] CO2 [Moles/Vol] 22 mmol/L Normal 21-31 [facility] Comment on above: Performed By: #### 2 036306, 15209753, 0422646, 9909009, 8647718, 16701021 ####[facility] [address] [place] [address] Glucose [Mass/Vol] 130 mg/dL Normal 55-199 [facility] Comment on above: Result Comment: If t his glucose result represents a fasting glucose, interpretation should refer to the following reference range: 55-99 mg/dL Performed By: #### 2 444844, 97520452, 9211871, 3373233, 7748119, 07916677 ####[facility] [address] [place] [address] Potassium [Moles/Vol] 4.2 mmol/L Normal 3.5-5.3 [facility] Comment on above: Performed By: #### 2 526355, 29159744, 7894158, 6351598, 0365324, 14877181 ####[facility] [address] [place] [address] Sodium [Moles/Vol] 138 mmol/L Normal 135-145 [facility] Comment on above: Performed By: #### 2 406298, 93869132, 1334436, 9914480, 7983651, 96919264 ####[facility] [address] [place] [address] CBC w/ Auto Diffon 3 Erythrocyte distribution width (RBC) [Ratio] 16.3 % High 10.9-14.2 [facility] Comment on above: Performed By: #### 2 692078, 98586275, 6330274, 4308683, 0242290, 50415187 ####[facility] [address] [place] [address] Hematocrit (Bld) [Volume fraction] 36.5 % Normal 34.0-46.0 [facility] Comment on above: Performed By: #### 2 430045, 04275803, 4198376, 9251030, 7399328, 97757066 ####[facility] [address] [place] [address] Hemoglobin (Bld) [Mass/Vol] 12.1 g/dL Normal 12.0-16.0 [facility] Comment on above: Performed By: #### 2 940878, 36686394, 1561641, 3178955, 4630246, 35744347 ####[facility] [address] [place] [address] MCH (RBC) [Entitic mass] 32.9 pg Normal 27.0-34.0 [facility] Comment on above: Performed By: #### 2 282346, 93969167, 6792267, 0370584, 4326058, 51505231 ####[facility] [address] [place] [address] MCHC (RBC) [Mass/Vol] 33.1 g/dL Normal 31.4-36.0 [facility] Comment on above: Performed By: #### 2 600173, 38233949, 5001784, 8615800, 1018229, 97305941 ####[address] [place] [address] MCV (RBC) [Entitic vol] 99.3 fL Normal 80.0-100.0 F [facility] Comment on above: Performed By: #### 2 245716, 65357399, 9203646, 8267045, 4404537, 64862448 ####[address] [address] Platelet mean volume (Bld) [Entitic vol] 7.3 fL Normal 6.4-10.8 [facility] Comment on above: Performed By: #### 2 017527, 07553549, 1557392, 5749043, 7820690, 39615756 ####[address] [address] Platelets (Bld) [#/Vol] 229.0 E9/L Normal 150. 0-500. 0 [facility] Comment on above: Performed By: #### 2 335625, 29833391, 4927789, 8269787, 1225713, 96056487 ####[address] [address] RBC (Bld) [#/Vol] 3.7 E12/L Low 4.3-5.9 [facility] Comment on above: Performed By: #### 2 254680, 07120520, 2764879, 9605487, 2405688, 47455053 ####[address] [place] [address] WBC corrected for nucl RBC Auto (Bld) [#/Vol] 6.6 E9/L Normal 4.0-11.0 [facility] Comment on above: Performed By: #### 2 578844, 77886200, 8231218, 2770995, 0068680, 58362487 ####[address] [address] [address] Pelvis w/o Contraston CT Pelvis w/o Contrast Normal Lucila hyman [facility] ED Clinical Summaryon 2022 ED Clinical Summary Normal Debbie caballero [facility] ED Note-Physicianon 11-03-19 ED Note-Physician Radiologist has read the x-ray of the sacrum and there is discrepancy. He is reading he has a left pubic rami fracture. The patient has been admitted to the hospital.The hospitalist notified. Normal [facility] Comment on above: Result Comment: Elec tronically Signed By: Alok Cai M.D.\.br\Date and Time Signed: 11/02/22 07:41 EDT ED Note-Physician Normal [facility] Comment on above: Result Comment: Elec tronically Signed By: Kelly Meredith DO\.br\Date and Time Signed: 11/02/22 00:27 EDT ED Patient Education Noteon 11-02-2022 ED Patient Education Note Normal [facility] ED Patient Summaryon 023 ED Patient Summary Normal [facility] ED Traumaon 11-02-2022 ED Trauma [id number]#1.00CD:1 27 Normal [facility] FolateOrdered By: SYSTEM SYS TEM on 11-02-2022 Folate [Mass/Vol] 11.4 ng/mL Normal >=6.7 [facility] Comment on above: Performed By: #### 1 6557276, 138181194, 1891316, 6833274 ####[facility] [address] [place] [address] Hep Func Panelon 11-02-2022 Albumin [Mass/Vol] 3.5 g/dL Normal 3.3-5.0 [facility] Comment on above: Performed By: #### 2 830771, 99429378, 2595545, 7458969, 0946814, 73335916 ####[facility] [address] [place] [address] Albumin/Globulin (S) [Mass conc ratio] 1.0 Low 1.1-2.2 [facility] Comment on above: Performed By: #### 2 382009, 68253300, [id number], 0694654, 7123724, [id number] ####[facility] [address] [place] [address] ALP [Catalytic activity/Vol] 110 Int._Unit/L High 21-98 [facility] Comment on above: Performed By: #### 2 276616, 70084545, 4619767, 2533227, 1141888, 77771630 ####[facility] [address] [place] [address] ALT No additional P-5'-P [Catalytic activity/Vol] 13 Int._Unit/L Normal 6-46 [facility] Comment on above: Performed By: #### 2 634015, 50757451, 9336055, 8747619, 5203019, 22521047 ####[facility] [address] [place], [place] [address] AST [Catalytic activity/Vol] 20 Int._Unit/L Normal 5-43 [facility] Comment on above: Performed By: #### 2 230410, 73084294, 7371884, 7149765, 3081819, 94403357 ####[facility] [address] [place] [address] Bilirubin [Mass/Vol] 0.9 mg/dL Normal 0.0-1.1 [facility] Comment on above: Performed By: #### 2 110363, 29527133, 9916022, 3207077, 9742298, 38020945 ####[facility] [address] [place] [address] Bilirubin.direct [Mass/Vol] 0.2 mg/dL Normal 0.1-0.4 [facility] Comment on above: Performed By: #### 2 444190, 74127701, 5008884, 8554784, 3011389, 29207608 ####[facility] [address] [place] [address] Bilirubin.indirect [Mass or moles/Vol] 0.7 mg/dL Normal 0.1-0.9 [facility] Comment on above: Performed By: #### 2 524056, 90782227, 3757544, 0675227, 2261539, 76257496 ####[facility] [address] [place] [address] Globulin (S) [Mass/Vol] 3.4 g/dL Normal 1.4-4.0 [facility] Comment on above: Performed By: #### 2 588830, 52315401, 4811255, 5900405, 4115110, 47147738 ####[facility] [address] [place] [address] Protein [Mass/Vol] 6.9 g/dL Normal 6.0-7.8 [facility] Comment on above: Performed By: #### 2 381438, 96008394, 8988237, 7742831, 2963354, 87271675 ####[facility] [address] [place] [address] Insurance Correspondence Off iceon 11-02-2022 Insurance Correspondence Office [id number]#[id number]:12 7 [facility] 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 Note - Attila e Manageron 11-02-2022 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 [facility] Comment on above: Result Comment: Elec tronically Signed By: Florence Ortega\.br\Date and Time Signed: 11/02/22 14:23 EDT 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 Note - Rafat n 11-02-2022 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 Note - OT Normal [facility] 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 Note - Soc ial Workeron 11-02-2022 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 Note - Washer Meat [facility] Monitor Recordon 11-02-2022 Monitor Record [id number]#[id number]:1 27 Normal [facility] Progress Note-Physicianon Progress Note-Physician Normal [facility] Comment on above: Result Comment: Elec tronically Signed By: Gavino Erickson DO\.br\Date and Time Signed: 11/02/22 15:25 EDT Progress Note-Physician Normal F [facility] Comment on above: Result Comment: Elec tronically Signed By: Trevor HANKS, Wyatt\.br\Date and Time Signed: 11/02/22 12:22 EDT Reference Laboratory Testing Ordered By: Generated DomainUser on 11-02-2022 Reagin Ab RPR Ql (S) Non-Reactive Invalid Interpretation Code Non Reactive [facility] [place] [facility]Outs[facility] Comment on above: Result Comment: Perf ormed at: [facility] [id number] [place], [place] [id number] PhD [place] [facility] TSH With T4fr ReflexOrdered By: SYSTEM SYSTEM on 11-02-2022 TSH Qn 0.93 m[IU]/L Normal 0.34-5.60 [facility] [place] [facility] Comment on above: Performed By: #### 1 0711562, 700103200, 2703422, 9967148 ####[facility] [address] [place] [address] Troponin 0 Hr.on 11-02-2022 Troponin I.cardiac [Mass/Vol] 7.50 pg/mL Low 10.10-27.1 0 [facility] Comment on above: Result Comment: The 95% CI (Confidence Interval) PPV (Positive Predictive Value) for myocardial infarction in females is 38 pg/mL, in males 51 pg/mL. The results should be used in conjunction with clinical conditions of myocardial infarction.(Access High Sensitivity Troponin I Instructions For Use, Gaby Derby, November 2017) Performed By: #### 2 822567, 26770238, 0052959, 1487155, 6570737, 10950740 ####[facility] [address] [place] [address] UA With Cult Reflexon 2022 Bacteria LM Ql (Urine sed) TRACE Normal Trace [facility] Comment on above: Order Comment: Urina ry Catheter Insertion triggered Urinalysis With Culture Reflex order by discern. Performed By: #### 1 1605631 ####[facility] [address] [place] [address] Bilirubin Ql (U) Negative Normal Negative [facility] Comment on above: Order Comment: Urina ry Catheter Insertion triggered Urinalysis With Culture Reflex order by discern. Performed By: #### 1 0731480 ####[facility] [address] [place] [address] Clarity (U) CLEAR Normal Clear [facility] Comment on above: Order Comment: Urina ry Catheter Insertion triggered Urinalysis With Culture Reflex order by discern. Performed By: #### 1 0467360 ####[address] [address] Color (U) YELLOW Normal Yellow [facility] Comment on above: Order Comment: Urina ry Catheter Insertion triggered Urinalysis With Culture Reflex order by discern. Performed By: #### 1 0886171 ####[address] [address] Epithelial cells.squamous LM.HPF (Urine sed) [#/Area] 3-4 Normal 0-2 [facility] Comment on above: Order Comment: Urina ry Catheter Insertion triggered Urinalysis With Culture Reflex order by discern. Performed By: #### 1 6218344 ####[address] [address] Glucose Test strip (U) [Mass/Vol] Negative Normal Negative [facility] Comment on above: Order Comment: Urina ry Catheter Insertion triggered Urinalysis With Culture Reflex order by discern. Performed By: #### 1 2886136 ####[address] [address] Hemoglobin Ql (U) TRACE Abnormal Negative [facility] Comment on above: Order Comment: Urina ry Catheter Insertion triggered Urinalysis With Culture Reflex order by discern. Performed By: #### 1 7660577 ####[address] [address] Ketones (U) [Mass/Vol] TRACE Abnormal Negative [facility] Comment on above: Order Comment: Urina ry Catheter Insertion triggered Urinalysis With Culture Reflex order by discern. Performed By: #### 1 1394472 ####[facility] [address] [place] [address] Hartly.plasma/Hartly. RBC (Bld) [Mass ratio] 4-20 Normal 0-3 [facility] Comment on above: Order Comment: Urina ry Catheter Insertion triggered Urinalysis With Culture Reflex order by discern. Performed By: #### 1 5789023 ####[address] [address] Nitrite Ql (U) Negative Normal Negative [facility] Comment on above: Order Comment: Urina ry Catheter Insertion triggered Urinalysis With Culture Reflex order by discern. Performed By: #### 1 0421415 ####[address] [address] pH (U) 6.0 [pH] Invalid Interpretation Code 5.0-9.0 [facility] Comment on above: Order Comment: Urina ry Catheter Insertion triggered Urinalysis With Culture Reflex order by discern. Performed By: #### 1 5257677 ####[address] [address] Protein (U) [Mass/Vol] TRACE Abnormal Negative Fi [facility] Comment on above: Order Comment: Urina ry Catheter Insertion triggered Urinalysis With Culture Reflex order by discern. Performed By: #### 1 4022129 ####[address] [address] Specific gravity (U) [Rel density] 1.025 Invalid Interpretation Code 1.005-1.03 0 [facility] Comment on above: Order Comment: Urina ry Catheter Insertion triggered Urinalysis With Culture Reflex order by discern. Performed By: #### 1 7447992 ####[address] [address] Type of Urine collection method Catheter Normal [facility] Comment on above: Order Comment: Urina ry Catheter Insertion triggered Urinalysis With Culture Reflex order by discern. Performed By: #### 1 5657985 ####[address] [address] Urobilinogen Qn (U) 1.0 {Tj'U}/dL Normal 0.0-1.0 [facility] Comment on above: Order Comment: Urina ry Catheter Insertion triggered Urinalysis With Culture Reflex order by discern. Performed By: #### 1 1551842 ####[facility] [address] [place] [address] WBC Auto Ql (U) Negative Normal Negative [facility] Comment on above: Order Comment: Urina ry Catheter Insertion triggered Urinalysis With Culture Reflex order by discern. Performed By: #### 1 6067603 ####[facility] [address] [place] [address] WBC LM.HPF (Urine sed) [#/Area] 0-5 Normal 0-5 [facility] Comment on above: Order Comment: Urina ry Catheter Insertion triggered Urinalysis With Culture Reflex order by discern. Performed By: #### 1 7563264 ####[facility] [address] [place] [address] Bilirubin Ql (U) Negative Normal Negative [facility] Comment on above: Performed By: #### 1 2245223 ####[facility] [address] [place] [address] Clarity (U) SL CLOUDY Invalid Interpretation Code [facility] Comment on above: Performed By: #### 1 3728280 ####[facility] [address] [place] [address] Color (U) YELLOW Normal Yellow [facility] Comment on above: Performed By: #### 1 1350235 ####[facility] [address] [place] [address] Epithelial cells.squamous LM.HPF (Urine sed) [#/Area] 0-2 Normal 0-2 [facility] Comment on above: Performed By: #### 1 6142013 ####[facility] [address] [place] [address] Glucose Test strip (U) [Mass/Vol] Negative Normal Negative [facility] Comment on above: Performed By: #### 1 9455978 ####[facility] [address] [place] [address] Hemoglobin Ql (U) 3+ Abnormal Negative [facility] Comment on above: Performed By: #### 1 2214642 ####[facility] [address] [place] [address] Ketones (U) [Mass/Vol] TRACE Invalid Interpretation Code Negative [facility] Comment on above: Performed By: #### 1 4807304 ####[address] [address] Hartly.plasma/Hartly. RBC (Bld) [Mass ratio] 21-30 Abnormal 0-3 [facility] Comment on above: Performed By: #### 1 9790371 ####[address] [address] Mucus Ql (Urine sed) 1+ Normal [facility] Comment on above: Performed By: #### 1 9319348 ####[address] [address] Nitrite Ql (U) Negative Normal Negative [facility] Comment on above: Performed By: #### 1 0870481 ####[address] [address] pH (U) 6.0 [pH] Invalid Interpretation Code 5.0-9.0 [facility] Comment on above: Performed By: #### 1 0727334 ####[address] [address] Protein (U) [Mass/Vol] 1+ Abnormal Negative Fi [facility] Comment on above: Performed By: #### 1 7775373 ####[address] [address] Specific gravity (U) [Rel density] 1.025 Invalid Interpretation Code 1.005-1.03 0 [facility] Comment on above: Performed By: #### 1 8042159 ####[address] [address] Type of Urine collection method Clean Catch Normal [facility] Comment on above: Performed By: #### 1 6493588 ####[facility] [address] [place] [address] Urobilinogen Qn (U) 2.0 {Tj'U}/dL Abnormal 0.0-1.0 [facility] Comment on above: Performed By: #### 1 9222115 ####[facility] [address] [place] [address] WBC Auto Ql (U) Negative Normal Negative [facility] Comment on above: Performed By: #### 1 8463886 ####[facility] [address] [place] [address] WBC LM.HPF (Urine sed) [#/Area] 0-5 Normal 0-5 [facility] Comment on above: Performed By: #### 1 0933253 ####[facility] [address] [place] [address] URINALYSISOrdered By: Dianne Villa on 11-02-2022 Bacteria LM Ql (Urine sed) Trace /HPF Normal Trace/HPF [facility] UA Auto SS Bilirubin Ql (U) Negative (11/02/22 5:30 PM) Normal Negative [facility] UA Auto SS Clarity (U) Clear (11/02/22 5:30 PM) Normal Clear [facility] UA Auto SS Color (U) Yellow (11/02/22 5:30 PM) Normal Yellow [facility] UA Auto SS Epithelial cells.squamous LM.HPF (Urine sed) [#/Area] 3-4 /HPF Normal 0-2/HPF [facility] UA Auto SS Glucose Test strip (U) [Mass/Vol] Negative (11/02/22 5:30 PM) Normal Negative [facility] UA Auto SS Hemoglobin Ql (U) Trace *ABN* (11/02/22 5:30 PM) Invalid Interpretation Code Negative [facility] UA Auto SS Ketones (U) [Mass/Vol] Trace *ABN* (11/02/22 5:30 PM) Invalid Interpretation Code Negative [facility] UA Auto SS Hartly.plasma/Hartly. RBC (Bld) [Mass ratio] 4-20 /HPF Normal 0-3/HPF [facility] UA Auto SS Nitrite Ql (U) Negative (11/02/22 5:30 PM) Normal Negative [facility] UA Auto SS pH (U) 6.0 *NA* (11/02/22 5:30 PM) Invalid Interpretation Code 5.0 - 9.0 [facility] UA Auto SS Protein (U) [Mass/Vol] Trace *ABN* (11/02/22 5:30 PM) Invalid Interpretation Code Negative [facility] UA Auto SS Specific gravity (U) [Rel density] 1.025 *NA* (11/02/22 5:30 PM) Invalid Interpretation Code 1.005 - 1.030 [facility] UA Auto SS UA Spec Desc Catheter (11/02/22 5:30 PM) Normal [facility] UA Auto SS Urobilinogen Qn (U) 1.3125932 {Tj'U}/dL Normal 0.0 - 1.0 EU/dL [facility] UA Auto SS WBC Auto Ql (U) Negative (11/02/22 5:30 PM) Normal Negative [facility] UA Auto SS WBC LM.HPF (Urine sed) [#/Area] 0-5 /HPF Normal 0-5/HPF [facility] UA Auto SS Vit [id number] By: SYSTEM SY STEM on 11-02-2022 Cobalamin (Vitamin B12) [Mass/Vol] 470 pg/mL Normal 50-1500 [facility] Comment on above: Performed By: #### 1 7502260, [id number], 8315393, 4073023 ####[facility] [address] [place] [address] XR Chest Single Viewon 11-02 XR Chest Single View Normal [facility] XR Pelvis 1 or 2 Viewson XR Pelvis 1 or 2 Views Normal Fi [facility] XR Sacrum and Coccyx Min 2 V iewson 11-02-2022 XR Sacrum and Coccyx Min 2 Views Normal [facility] eGFRon 11-02-2022 GFR/1.73 sq M.predicted among non-blacks MDRD (S/P/Bld) [Vol rate/Area] 43 mL/min/1.73 m2 Low >=59 [facility] Comment on above: Order Comment: Order added by Discern Expert. Result Comment: Cloth Mender aubrey kidney disease could be indicated at eGFR's of less than 60 mL/min/1.73m2. Kidney failure is indicated at less than 15 mL/min/1.73m2. Performed By: #### 2 936044, 58857588, 6092616, 5390966, 4468820, 27405566 ####[facility] [address] [place] [id number] CHEMISTRYOrdered By: SYSTEM SYSTEM on 11-01-2022 Albumin [Mass/Vol] 3.5 g/dL Normal 3.3 - 5.0 gm/dL [facility] Albumin/Globulin [Mass ratio] 1.0 {ratio} Low 1.1 - 2.2 [facility] ALP [Catalytic activity/Vol] 110 [iU]/d High 21 - 98 Int._Unit/ L [facility] ALT No additional P-5'-P [Catalytic activity/Vol] 13 [iU]/d Normal 6 - 46 Int._Unit/ L [facility] Anion gap [Moles/Vol] 15 mmol/L Normal 6 - 16 mEq/L [facility] AST [Catalytic activity/Vol] 20 [iU]/d Normal 5 - 43 Int._Unit/ L [facility] Bilirubin [Mass/Vol] 0.9 mg/dL Normal 0.0 - 1 .1 mg/dL [facility] Bilirubin.direct [Mass/Vol] 0.2 mg/dL Normal 0.1 - 0.4 mg/dL [facility] Bilirubin.indirect [Mass or moles/Vol] 0.7 mg/dL Normal 0.1 - 0.9 mg/dL [facility] Calcium [Mass/Vol] 9.1 mg/dL Normal 8.9 - 11. 1 mg/dL [facility] Chloride [Moles/Vol] 105 mmol/L Normal 101 - 1 11 mmol/L [facility] CO2 [Moles/Vol] 22 mmol/L Normal 21 - 31 mmol/L [facility] Creatinine [Mass/Vol] 1.3 mg/dL Normal 0.5 - 1.3 mg/dL [facility] GFR/1.73 sq M.predicted among non-blacks MDRD (S/P/Bld) [Vol rate/Area] 43 mL/min/1.73 m2 Low >=59mL/min /1.73 m2 FT Chem S Globulin (S) [Mass/Vol] 3.4 g/dL Normal 1.4 - 4.0 gm/dL [facility] Glucose [Mass/Vol] 130 mg/dL Normal 55 - 199 mg/dL [facility] Potassium [Moles/Vol] 4.2 mmol/L Normal 3.5 - 5.3 mmol/L [facility] Protein [Mass/Vol] 6.9 g/dL Normal 6.0 - 7.8 gm/dL [facility] Sodium [Moles/Vol] 138 mmol/L Normal 135 - 145 mmol/L [facility] Troponin I.cardiac [Mass/Vol] 7.50 pg/mL Low 10.10 - 27.10 pg/mL [facility] Urea nitrogen [Mass/Vol] 26 mg/dL High 5 - 21 mg/dL [facility] Urea nitrogen/Creatinine [Mass ratio] 20 mg/mg Normal 10 - 20 [facility] Consent for Treatmenton 10-20 Consent for Treatment [id number]#[id number]:12 7 Normal [facility] HEMATOLOGYOrdered By: SYSTEM SYSTEM on 11-01-2022 Basophils/100 WBC (Bld) 1.2 % Normal 0.0 - 2.0 % [facility] HemeAutoSS Basophils/Leukocytes Auto (Bld) [Pure # fraction] 0.1 E9/L Normal 0.0 - 0.2 E9/L [facility] HemeAutoSS Eosinophils/100 WBC (Bld) 3.3 % Normal 0.0 - 8.0 % [facility] HemeAutoSS Eosinophils/Leukocytes Auto (Bld) [Pure # fraction] 0.2 E9/L Normal 0.0 - 0.5 E9/L [facility] HemeAutoSS Lymphocytes/100 WBC (Bld) 24.6 % Normal 14.0 - 50.0 % [facility] HemeAutoSS Lymphocytes/Leukocytes Auto (Bld) [Pure # fraction] 1.6 E9/L Normal 1.0 - 4.0 E9/L [facility] HemeAutoSS Monocytes/100 WBC (Bld) 5.0 % Normal 4.0 - 14.0 % [facility] HemeAutoSS Monocytes/Leukocytes Auto (Bld) [Pure # fraction] 0.3 E9/L Normal 0.2 - 1.0 E9/L [facility] HemeAutoSS Neutrophils/100 WBC (Bld) 65.9 % Normal 36.0 - 75.0 % [facility] HemeAutoSS Neutrophils/Leukocytes Auto (Bld) [Pure # fraction] 4.4 E9/L Normal 2.0 - 7.5 E9/L FT HemeAutoSS HEMATOLOGYOrdered By: Lisseth Valenzuela on 11-01-2022 Erythrocyte distribution width (RBC) [Ratio] 16.3 % High 10.9 - 14.2 % [facility] HemeAutoSS Hematocrit (Bld) [Volume fraction] 36.5 % Normal 34.0 - 46.0 % FT HemeAutoSS Hemoglobin (Bld) [Mass/Vol] 12.1 g/dL Normal 12.0 - 16.0 gm/dL [facility] HemeAutoSS MCH (RBC) [Entitic mass] 32.9 pg Normal 27.0 - 34.0 pg [facility] HemeAutoSS MCHC (RBC) [Mass/Vol] 33.1 g/dL Normal 31.4 - 36.0 gm/dL [facility] HemeAutoSS MCV (RBC) [Entitic vol] 99.3 fL Normal 80.0 - 100.0 fL [facility] HemeAutoSS Platelet mean volume (Bld) [Entitic vol] 7.3 fL Normal 6.4 - 10.8 fL [facility] HemeAutoSS Platelets (Bld) [#/Vol] 229.0 E9/L Normal 150. 0 - 500.0 E9/L [facility] HemeAutoSS RBC (Bld) [#/Vol] 3.7 E12/L Low 4.3 - 5.9 E12/L [facility] HemeAutoSS WBC corrected for nucl RBC Auto (Bld) [#/Vol] 6.6 E9/L Normal 4.0 - 11.0 E9/L [facility] HemeAutoSS URINALYSISOrdered By: Lisseth Valenzuela on 11-01-2022 Bilirubin Ql (U) Negative (11/01/22 11:20 PM) Normal Negative [facility] UA Auto SS Clarity (U) SL CLOUDY Invalid Interpretation Code [facility] UA Auto SS Color (U) Yellow (11/01/22 11:20 PM) Normal Yellow [facility] UA Auto SS Epithelial cells.squamous LM.HPF (Urine sed) [#/Area] 0-2 /HPF Normal 0-2/HPF [facility] UA Auto SS Glucose Test strip (U) [Mass/Vol] Negative (11/01/22 11:20 PM) Normal Negative [facility] UA Auto SS Hemoglobin Ql (U) 3+ *ABN* (11/01/22 11:20 PM) Invalid Interpretation Code Negative [facility] UA Auto SS Ketones (U) [Mass/Vol] Trace *NA* (11/01/22 11:20 PM) Invalid Interpretation Code Negative [facility] UA Auto SS Hartly.plasma/Hartly. RBC (Bld) [Mass ratio] 21-30 /HPF Invalid Interpretation Code 0-3/HPF [facility] UA Auto SS Mucus Ql (Urine sed) 1+ (11/01/22 11:20 PM) Normal [facility] UA Auto SS Nitrite Ql (U) Negative (11/01/22 11:20 PM) Normal Negative [facility] UA Auto SS pH (U) 6.0 *NA* (11/01/22 11:20 PM) Invalid Interpretation Code 5.0 - 9.0 [facility] UA Auto SS Protein (U) [Mass/Vol] 1+ *ABN* (11/01/22 11:20 PM) Invalid Interpretation Code Negative [facility] UA Auto SS Specific gravity (U) [Rel density] 1.025 *NA* (11/01/22 11:20 PM) Invalid Interpretation Code 1.005 - 1.030 [facility] UA Auto SS UA Spec Desc Clean Catch (11/01/22 11:20 PM) Normal [facility] UA Auto SS Urobilinogen Qn (U) 2.4671938 {Tj'U}/dL Inv alid Interpretation Code 0.0 - 1.0 EU/dL [facility] UA Auto SS WBC Auto Ql (U) Negative (11/01/22 11:20 PM) Normal Negative [facility] UA Auto SS WBC LM.HPF (Urine sed) [#/Area] 0-5 /HPF Normal 0-5/HPF [facility] UA Auto SS ONC - Otheron 10-30-2022 ONC - Other [id number]#[id number]:1 27 Normal [facility] 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 Note - Soc ial Workeron 10-05-2022 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 Note - Washer Meat Normal [facility] Oncology Progress Noteon Oncology Progress Note Normal Fi [facility] Consent for Treatmenton Consent for Treatment [id number]#[id number]:12 7 Normal [facility] CA 27 29on 09-26-2022 Cancer Ag - Qn 17.7 unit/mL Invalid Interpretation Code 0.0-38.6 [facility] Comment on above: Result Comment: [facility] [employer] Immunochemiluminometric Methodology (ICMA)Values obtained with different assay methods or kits cannot be usedinterchangeably. Results cannot be interpreted as absolute evidenceof the presence or absence of malignant disease.Performed at: [facility] [id number] [place], [place] [id number] PhD [place] [employer] Performed By: #### 2 274393, [id number], 30492421, 8229995, 9619823 ####[facility] [address] [place] [address] Auto Diffon 09-25-2022 Basophils/100 WBC (Bld) 3.0 % High 0.0-2.0 F [facility] Comment on above: Order Comment: Order Added by Discern Expert. Performed By: #### 2 602148, 46710002, 55134269, 4170534, 2743666 ####[facility] [address] [place] [address] Basophils/Leukocytes Auto (Bld) [Pure # fraction] 0.1 E9/L Normal 0.0-0.2 [facility] Comment on above: Order Comment: Order Added by Discern Expert. Performed By: #### 2 053209, 41068173, 29400754, 4911257, 4201254 ####[facility] [address] [place] [address] Eosinophils/100 WBC (Bld) 3.1 % Normal 0.0-8.0 [facility] Comment on above: Order Comment: Order Added by Discern Expert. Performed By: #### 2 938362, 09660655, 83961829, 1920596, 3298375 ####[facility] [address] [place] [address] Eosinophils/Leukocytes Auto (Bld) [Pure # fraction] 0.1 E9/L Normal 0.0-0.5 [facility] Comment on above: Order Comment: Order Added by Discern Expert. Performed By: #### 2 512871, 63564501, 74879228, 9902749, 0439246 ####[address] [address] Lymphocytes/100 WBC (Bld) 37.1 % Normal 14.0-50.0 [facility] Comment on above: Order Comment: Order Added by Discern Expert. Performed By: #### 2 483965, 59246777, 36635058, 2155092, 2968306 ####[address] [address] Lymphocytes/Leukocytes Auto (Bld) [Pure # fraction] 1.3 E9/L Normal 1.0-4.0 [facility] Comment on above: Order Comment: Order Added by Faviola Expert. Performed By: #### 2 687026, 33851393, 85137350, 1097123, 4451266 ####[address] [address] Monocytes/100 WBC (Bld) 8.5 % Normal 4.0-14.0 [facility] Comment on above: Order Comment: Order Added by Faviola Expert. Performed By: #### 2 430189, 50667296, 54996907, 9005811, 3643995 ####[address] [address] Monocytes/Leukocytes Auto (Bld) [Pure # fraction] 0.3 E9/L Normal 0.2-1.0 [facility] Comment on above: Order Comment: Order Added by Faviola Expert. Performed By: #### 2 904275, 41943556, 87461521, 4462869, 8211949 ####[address] [address] Neutrophils/100 WBC (Bld) 48.3 % Normal 36.0-75.0 [facility] Comment on above: Order Comment: Order Added by Discern Expert. Performed By: #### 2 003408, 92716586, 07846275, 6696117, 6416956 ####[address] [address] Neutrophils/Leukocytes Auto (Bld) [Pure # fraction] 1.7 E9/L Low 2.0-7.5 [facility] Comment on above: Order Comment: Order Added by Discern Expert. Performed By: #### 2 291916, 95740037, 05509276, 7422544, 4721278 ####[address] [address] CBC w/ Auto Diffon 3 Erythrocyte distribution width (RBC) [Ratio] 16.6 % High 10.9-14.2 [facility] Comment on above: Performed By: #### 2 952117, 05202205, 37544281, 0988635, 2078525 ####[place] [address]57 Hematocrit (Bld) [Volume fraction] 29.4 % Low 34.0-46.0 [facility] Comment on above: Performed By: #### 2 222947, 20140462, 29003247, 0635403, 2307136 ####[address] [address] Hemoglobin (Bld) [Mass/Vol] 10.0 g/dL Low 12.0-16.0 [facility] Comment on above: Performed By: #### 2 053479, 05867860, 10405714, 8038853, 7868142 ####[address] [address] MCH (RBC) [Entitic mass] 34.5 pg High 27.0-34.0 [facility] Comment on above: Performed By: #### 2 991655, 66129760, 63023087, 5570590, 3925429 ####[address] [address] MCHC (RBC) [Mass/Vol] 34.0 g/dL Normal 31.4-36.0 [facility] Comment on above: Performed By: #### 2 219839, 65462773, 14390869, 2510506, 2741165 ####[facility] [address] [place] 8463357 MCV (RBC) [Entitic vol] 101.5 fL High 80.0-100.0 F [facility] Comment on above: Performed By: #### 2 088973, 34533288, 72359138, 4487197, 8964371 ####[facility] [address] [place], [place] [address] Platelet mean volume (Bld) [Entitic vol] 8.0 fL Normal 6.4-10.8 [facility] Comment on above: Performed By: #### 2 177089, 78324112, 71686495, 2073520, 1780841 ####[facility] [address] [place], [place] [address] Platelets (Bld) [#/Vol] 177.0 E9/L Normal 150. 0-500. 0 [facility] Comment on above: Performed By: #### 2 197738, 61321991, 09881174, 8101966, 7356152 ####[place] [address]9957 RBC (Bld) [#/Vol] 2.9 E12/L Low 4.3-5.9 [facility] Comment on above: Performed By: #### 2 048675, 70221439, 74155504, 5740038, 6033948 ####[facility] [address] [place] [address] WBC corrected for nucl RBC Auto (Bld) [#/Vol] 3.4 E9/L Low 4.0-11.0 [facility] Comment on above: Performed By: #### 2 074108, 19620556, 39214315, 4731789, 9387273 ####[facility] [address] [place], [place] [address] CHEMISTRYOrdered By: SYSTEM SYSTEM on 09-25-2022 Albumin [Mass/Vol] 3.1 g/dL Low 3.3 - 5.0 gm/dL [facility] Remisol Albumin/Globulin [Mass ratio] 0.8 {ratio} Low 1.1 - 2.2 [facility] ALP [Catalytic activity/Vol] 131 [iU]/d High 21 - 98 Int._Unit/ L [facility] ALT No additional P-5'-P [Catalytic activity/Vol] 13 [iU]/d Normal 6 - 46 Int._Unit/ L [facility] Anion gap [Moles/Vol] 5 mmol/L Low 6 - 16 mEq/L [facility] AST [Catalytic activity/Vol] 16 [iU]/d Normal 5 - 43 Int._Unit/ L [facility] Bilirubin [Mass/Vol] 0.5 mg/dL Normal 0.0 - 1 .1 mg/dL [facility] Calcium [Mass/Vol] 8.9 mg/dL Normal 8.9 - 11. 1 mg/dL [facility] Chloride [Moles/Vol] 114 mmol/L High 101 - 1 11 mmol/L [facility] CO2 [Moles/Vol] 25 mmol/L Normal 21 - 31 mmol/L [facility] Creatinine [Mass/Vol] 1.1 mg/dL Normal 0.5 - 1.3 mg/dL [facility] GFR/1.73 sq M.predicted among non-blacks MDRD (S/P/Bld) [Vol rate/Area] 53 mL/min/1.73 m2 Low >=59mL/min /1.73 m2 [facility] Chem S Globulin (S) [Mass/Vol] 4.0 g/dL Normal 1.4 - 4.0 gm/dL [facility] Glucose [Mass/Vol] 134 mg/dL Normal 55 - 199 mg/dL [facility] Potassium [Moles/Vol] 3.8 mmol/L Normal 3.5 - 5.3 mmol/L [facility] Protein [Mass/Vol] 7.1 g/dL Normal 6.0 - 7.8 gm/dL [facility] Sodium [Moles/Vol] 140 mmol/L Normal 135 - 145 mmol/L [facility] Urea nitrogen [Mass/Vol] 24 mg/dL High 5 - 21 mg/dL [facility] [place] Urea nitrogen/Creatinine [Mass ratio] 22 mg/mg High 10 - 20 [facility] [place]isol CMPon 09-25-2022 Albumin [Mass/Vol] 3.1 g/dL Low 3.3-5.0 [facility] Comment on above: Performed By: #### 2 265617, 53032454, 29391827, 1618998, 5281523 ####[facility] [address] [place] [address] Albumin/Globulin (S) [Mass conc ratio] 0.8 Low 1.1-2.2 [facility] Comment on above: Performed By: #### 2 618165, 56486599, 05049234, 2293639, 0217371 ####[facility] [address] [place] [address] ALP [Catalytic activity/Vol] 131 Int._Unit/L High 21-98 [facility] Comment on above: Performed By: #### 2 223994, 04851072, 19189220, 7527002, 4376497 ####[facility] [address] [place] [address] ALT No additional P-5'-P [Catalytic activity/Vol] 13 Int._Unit/L Normal 6-46 [facility] Comment on above: Performed By: #### 2 790855, 26196223, 42481979, 2449153, 8381885 ####[facility] [address] [place] [address] Anion gap [Moles/Vol] 5 mmol/L Low 6-16 [facility] Comment on above: Performed By: #### 2 974208, 60942058, 89818000, 3471146, 6848909 ####[facility] [address] [place] [address] AST [Catalytic activity/Vol] 16 Int._Unit/L Normal 5-43 [facility] Comment on above: Performed By: #### 2 790220, 60317157, 45645985, 1274554, 1146130 ####[facility] [address] [place] [address] Bilirubin [Mass/Vol] 0.5 mg/dL Normal 0.0-1.1 [facility] Comment on above: Performed By: #### 2 105711, 30203167, 83867916, 9537633, 8825794 ####[facility] [address] [place] [address] Calcium [Mass/Vol] 8.9 mg/dL Normal 8.9-11.1 [facility] Comment on above: Performed By: #### 2 372800, 75213106, 74039134, 7924514, 2584384 ####[facility] [address] [place] [address] Chloride [Moles/Vol] 114 mmol/L High 101-111 [facility] Comment on above: Performed By: #### 2 785790, 05052957, 45022622, 4754409, 6730139 ####[facility] [address] [place] [address] CO2 [Moles/Vol] 25 mmol/L Normal 21-31 [facility] Comment on above: Performed By: #### 2 108967, 15426295, 16941051, 9676990, 6665189 ####[facility] [address] [place] [address] Creatinine [Mass/Vol] 1.1 mg/dL Normal 0.5-1.3 [facility] Comment on above: Performed By: #### 2 830405, 60326197, 75079954, 3372952, 4744653 ####[facility] [address] [place] [address] Globulin (S) [Mass/Vol] 4.0 g/dL Normal 1.4-4.0 F [facility] Comment on above: Performed By: #### 2 068385, 29123312, 39163883, 6193600, 8818056 ####[facility] [address] [place] [address] Glucose [Mass/Vol] 134 mg/dL Normal 55-199 [facility] Comment on above: Result Comment: If t his glucose result represents a fasting glucose, interpretation should refer to the following reference range: 55-99 mg/dL Performed By: #### 2 501994, 55964143, 15709270, 1594741, 4488948 ####[facility] [address] [place] [address] Potassium [Moles/Vol] 3.8 mmol/L Normal 3.5-5.3 [facility] Comment on above: Performed By: #### 2 361318, 51282124, 05339955, 3960368, 5291890 ####[facility] [address] [place] [address] Protein [Mass/Vol] 7.1 g/dL Normal 6.0-7.8 [facility] Comment on above: Performed By: #### 2 533412, 80485885, 45191992, 8522873, 1875162 ####[facility] [address] [place] [address] Sodium [Moles/Vol] 140 mmol/L Normal 135-145 [facility] Comment on above: Performed By: #### 2 638434, 44695882, 33297868, 7219561, 7259267 ####[facility] [address] [place] [address] Urea nitrogen [Mass/Vol] 24 mg/dL High 5-21 [facility] Comment on above: Performed By: #### 2 939899, 44634202, 91075104, 9653085, 3640249 ####[facility] [address] [place] [address] Urea nitrogen/Creatinine [Mass ratio] 22 No Units High 10-20 [facility] Comment on above: Performed By: #### 2 713490, 10800138, 01617284, 8770181, 3188134 ####[facility] [address] [place] [address] Consent for Treatmenton 06 Consent for Treatment [id number]:12 7 Normal [facility] HEMATOLOGYOrdered By: SYSTEM SYSTEM on 09-25-2022 Basophils/100 WBC (Bld) 3.0 % High 0.0 - 2.0 % [facility] HemeAutoSS Basophils/Leukocytes Auto (Bld) [Pure # fraction] 0.1 E9/L Normal 0.0 - 0.2 E9/L [facility] HemeAutoSS Eosinophils/100 WBC (Bld) 3.1 % Normal 0.0 - 8.0 % [facility] HemeAutoSS Eosinophils/Leukocytes Auto (Bld) [Pure # fraction] 0.1 E9/L Normal 0.0 - 0.5 E9/L [facility] HemeAutoSS Lymphocytes/100 WBC (Bld) 37.1 % Normal 14.0 - 50.0 % [facility] HemeAutoSS Lymphocytes/Leukocytes Auto (Bld) [Pure # fraction] 1.3 E9/L Normal 1.0 - 4.0 E9/L [facility] HemeAutoSS Monocytes/100 WBC (Bld) 8.5 % Normal 4.0 - 14.0 % [facility] HemeAutoSS Monocytes/Leukocytes Auto (Bld) [Pure # fraction] 0.3 E9/L Normal 0.2 - 1.0 E9/L [facility] HemeAutoSS Neutrophils/100 WBC (Bld) 48.3 % Normal 36.0 - 75.0 % [facility] HemeAutoSS Neutrophils/Leukocytes Auto (Bld) [Pure # fraction] 1.7 E9/L Low 2.0 - 7.5 E9/L [facility] HemeAutoSS HEMATOLOGYOrdered By: Dianne Villa on 09-25-2022 Erythrocyte distribution width (RBC) [Ratio] 16.6 % High 10.9 - 14.2 % [facility] HemeAutoSS Hematocrit (Bld) [Volume fraction] 29.4 % Low 34.0 - 46.0 % [facility] HemeAutoSS Hemoglobin (Bld) [Mass/Vol] 10.0 g/dL Low 12.0 - 16.0 gm/dL [facility] HemeAutoSS MCH (RBC) [Entitic mass] 34.5 pg High 27.0 - 34.0 pg [facility] HemeAutoSS MCHC (RBC) [Mass/Vol] 34.0 g/dL Normal 31.4 - 36.0 gm/dL [facility] HemeAutoSS MCV (RBC) [Entitic vol] 101.5 fL High 80.0 - 100.0 fL [facility] HemeAutoSS Platelet mean volume (Bld) [Entitic vol] 8.0 fL Normal 6.4 - 10.8 fL [facility] HemeAutoSS Platelets (Bld) [#/Vol] 177.0 E9/L Normal 150. 0 - 500.0 E9/L [facility] HemeAutoSS RBC (Bld) [#/Vol] 2.9 E12/L Low 4.3 - 5.9 E12/L [facility] HemeAutoSS WBC corrected for nucl RBC Auto (Bld) [#/Vol] 3.4 E9/L Low 4.0 - 11.0 E9/L [facility] HemeAutoSS ONC - Otheron 09-25-2022 ONC - Other [id number]: 127 Normal [facility] eGFRon 09-25-2022 GFR/1.73 sq M.predicted among non-blacks MDRD (S/P/Bld) [Vol rate/Area] 53 mL/min/1.73 m2 Low >=59 [facility] Comment on above: Order Comment: Order added by Discern Expert. Result Comment: Cloth Mender aubrey kidney disease could be indicated at eGFR's of less than 60 mL/min/1.73m2. Kidney failure is indicated at less than 15 mL/min/1.73m2. Performed By: #### 2 784072, 58123145, 07234154, 4694064, 4058497 ####[facility] [address] [place] [address] Ferritinon 09-10-2022 Ferritin [Mass/Vol] 302 ng/mL Normal 11-307 [facility] Comment on above: Result Comment: NORM ALS MEN <30 YRS 16-132 ng/mL MEN >30 YRS 8-338 ng/mL WOMEN (PREMEN) 6-104 ng/mL WOMEN (POSTMEN) 12-210 ng/mL Performed By: #### 2 943000, 97258766, 3714125, 98771544, 2582749, 5743969, 4522501, 1045192, 5792583, 1899599, 0651760 ####[facility] [address] [place] [address] Folateon 09-10-2022 Folate [Mass/Vol] 9.6 ng/mL Normal >=6.7 [facility] Comment on above: Performed By: #### 2 080698, 44388996, 4634252, 27640841, 8914987, 4407159, 5756942, 3386948, 5539820, 8944549, 3721810 ####[facility] [address] [place] [address] Vit B12on 09-10-2022 Cobalamin (Vitamin B12) [Mass/Vol] 203 pg/mL Normal 50-1500 [facility] Comment on above: Performed By: #### 2 668864, 40457285, 4233744, 94381285, 2405934, 2220419, 1112623, 9183677, 8583276, 9903592, 3546822 ####[facility] [address] [place] [address] CA 27 29on 09-09-2022 Cancer Ag 27-29 Qn 15.2 unit/mL Invalid Interpretation Code 0.0-38.6 [facility] Comment on above: Result Comment: [facility] Immunochemiluminometric Methodology (ICMA)Values obtained with different assay methods or kits cannot be usedinterchangeably. Results cannot be interpreted as absolute evidenceof the presence or absence of malignant disease.Performed at: [facility] [place], [place] [id number] PhD [place] Avelar Performed By: #### 2 139264, 44814214, 1686866, 47570351, 2580415, 2051817, 5498261, 3676802, 0856774, 9733076, 7870618 ####[facility] [address] [place] [address] Auto Diffon 09-08-2022 Basophils/100 WBC (Bld) 0.4 % Normal 0.0-2.0 [facility] Comment on above: Order Comment: Order Added by Discern Expert. Performed By: #### 2 671528, 47098753, 0016940, 76046200, 2318996, 7066657, 5661674, 3541798, 5857954, 1134176, 6824291 ####[facility] [address] [place] [address] Basophils/Leukocytes Auto (Bld) [Pure # fraction] 0.0 E9/L Normal 0.0-0.2 [facility] Comment on above: Order Comment: Order Added by Discern Expert. Performed By: #### 2 627414, 28174406, 0035543, 91032530, 6417220, 0959841, 5209545, 5637804, 5580515, 2618424, 9385185 ####[facility] [address] [place] [address] Eosinophils/100 WBC (Bld) 1.4 % Normal 0.0-8.0 [facility] Comment on above: Order Comment: Order Added by Discern Expert. Performed By: #### 2 956705, 40898063, 5328951, 47862968, 3849047, 3210910, 1746985, 9264988, 2952438, 4032045, 3445472 ####[place] [address] [place] [address] Eosinophils/Leukocytes Auto (Bld) [Pure # fraction] 0.1 E9/L Normal 0.0-0.5 [facility] Comment on above: Order Comment: Order Added by Discern Expert. Performed By: #### 2 001556, 79489422, 0241593, 56385903, 5081346, 0099997, 4854080, 9303758, 8978559, 8878660, 5639715 ####[place] [place] [address] Lymphocytes/100 WBC (Bld) 15.3 % Normal 14.0-50.0 [facility] Comment on above: Order Comment: Order Added by Discern Expert. Performed By: #### 2 994257, 10055017, 9374763, 34889453, 4319012, 1267457, 7841410, 6201559, 3532418, 4152230, 7382103 ####[facility] [address] [place] [address] Lymphocytes/Leukocytes Auto (Bld) [Pure # fraction] 0.8 E9/L Low 1.0-4.0 [facility] Comment on above: Order Comment: Order Added by Discern Expert. Performed By: #### 2 338542, 61717969, 9107758, 56373384, 7333879, 0813004, 5012580, 3154393, 0915756, 2025078, 6505641 ####[place] [place] [address] Monocytes/100 WBC (Bld) 2.8 % Low 4.0-14.0 [facility] Comment on above: Order Comment: Order Added by Discern Expert. Performed By: #### 2 734937, 49423037, 9369921, 30717074, 1162474, 7981624, 7987757, 1057781, 9482424, 3310257, 6233301 ####[address] [address] Monocytes/Leukocytes Auto (Bld) [Pure # fraction] 0.1 E9/L Low 0.2-1.0 [facility] Comment on above: Order Comment: Order Added by Discern Expert. Performed By: #### 2 549613, 57534453, 2273970, 64380470, 1235983, 8095610, 6238120, 3988229, 1153276, 5987641, 3435862 ####[address] [place] [address] Neutrophils/100 WBC (Bld) 80.1 % High 36.0-75.0 [facility] Comment on above: Order Comment: Order Added by Discern Expert. Performed By: #### 2 460569, 65578890, 6524704, 41389780, 6200610, 0900100, 9105848, 5454715, 7180474, 0758531, 5601123 ####[facility] [address] [place] [address] Neutrophils/Leukocytes Auto (Bld) [Pure # fraction] 4.2 E9/L Normal 2.0-7.5 [facility] Comment on above: Order Comment: Order Added by Discern Expert. Performed By: #### 2 574746, 73236957, 8567642, 46123428, 2261463, 7816387, 4912336, 3093554, 8091579, 8454414, 3695427 ####[address] [place] [address] CBC w/ Auto Diffon 3 Erythrocyte distribution width (RBC) [Ratio] 15.4 % High 10.9-14.2 [facility] Comment on above: Performed By: #### 2 941945, 82558087, 7217562, 61390181, 1151431, 2091134, 7294996, 9814723, 2231086, 0301772, 3442390 ####[address] [place] [address] Hematocrit (Bld) [Volume fraction] 30.9 % Low 34.0-46.0 [facility] Comment on above: Performed By: #### 2 922133, 15125072, 4216241, 82004676, 6786874, 8376518, 7642241, 5592139, 0329308, 9092419, 1169975 ####[facility] [address] [place] [address] Hemoglobin (Bld) [Mass/Vol] 10.3 g/dL Low 12.0-16.0 [facility] Comment on above: Performed By: #### 2 033214, 03964335, 6875339, 75301972, 0084884, 5819648, 6976586, 4974809, 6114484, 3185695, 7405789 ####[facility] [address] [place] [address] MCH (RBC) [Entitic mass] 33.7 pg Normal 27.0-34.0 [facility] Comment on above: Performed By: #### 2 716243, 11723377, 5093020, 31367021, 1656894, 4765648, 9248292, 2610301, 1229023, 4831866, 7776405 ####[facility] [address] [place] [address] MCHC (RBC) [Mass/Vol] 33.1 g/dL Normal 31.4-36.0 [facility] Comment on above: Performed By: #### 2 334744, 71675975, 1988238, 97714057, 0081568, 3617095, 8010053, 3914970, 8585450, 8518580, 6007693 ####[facility] [address] [place] [address] MCV (RBC) [Entitic vol] 101.8 fL High 80.0-100.0 F [facility] Comment on above: Performed By: #### 2 914013, 47329580, 4593471, 36034784, 5890929, 1742191, 1285564, 9449150, 0189435, 4464185, 9478216 ####[facility] [address] [place] [address] Platelet mean volume (Bld) [Entitic vol] 7.2 fL Normal 6.4-10.8 [facility] Comment on above: Performed By: #### 2 005098, 10971651, 8786330, 64492675, 6887662, 2349513, 1053899, 2718750, 5318563, 1520610, 0349474 ####[facility] [address] [place] [address] Platelets (Bld) [#/Vol] 307.0 E9/L Normal 150. 0-500. 0 [facility] Comment on above: Performed By: #### 2 106314, 33711798, 0221019, 28961047, 2562114, 0018039, 4646771, 0581744, 2091809, 3637717, 8113662 ####[facility] [address] [place] [address] RBC (Bld) [#/Vol] 3.0 E12/L Low 4.3-5.9 [facility] Comment on above: Performed By: #### 2 039242, 23987664, 8755751, 20195906, 4093719, 7515416, 8348280, 5789719, 0940072, 1575985, 8289216 ####[facility] [address] [place] [address] WBC corrected for nucl RBC Auto (Bld) [#/Vol] 5.3 E9/L Normal 4.0-11.0 [facility] Comment on above: Performed By: #### 2 217730, 20835359, 2092810, 09847280, 9001284, 5066062, 6623687, 5750713, 5007773, 6041993, 1608142 ####[facility] [address] [place] [address] CMPon 09-08-2022 Albumin [Mass/Vol] 3.1 g/dL Low 3.3-5.0 [facility] Comment on above: Performed By: #### 2 100398, 60843951, 5733545, 80430566, 5579024, 3728299, 5159341, 9537340, 7933942, 0047924, 7892910 ####[facility] [address] [place] [address] Albumin/Globulin (S) [Mass conc ratio] 0.8 Low 1.1-2.2 [facility] Comment on above: Performed By: #### 2 958605, 99548781, 9107717, 53302726, 2569604, 6286678, 8598820, 0609937, 9028009, 6159843, 3804230 ####[facility] [address] [place] [address] ALP [Catalytic activity/Vol] 156 Int._Unit/L High 21-98 [facility] Comment on above: Performed By: #### 2 282162, 64606689, 8573706, 42648770, 3771784, 8574176, 5355379, 2955726, 0782665, 5029159, 4576266 ####[facility] [address] [place] [address] ALT No additional P-5'-P [Catalytic activity/Vol] 16 Int._Unit/L Normal 6-46 [facility] Comment on above: Performed By: #### 2 970347, 35125890, 1398205, 10321209, 7863150, 8825384, 2324528, 9516945, 9355833, 4317471, 9142523 ####[facility] [address] [place] [address] Anion gap [Moles/Vol] 11 mmol/L Normal 6-16 [facility] Comment on above: Performed By: #### 2 567300, 85008666, 0136381, 36079505, 4198023, 5312816, 8468797, 2535451, 2978331, 5649980, 9794842 ####[facility] [address] [place] [address] AST [Catalytic activity/Vol] 17 Int._Unit/L Normal 5-43 [facility] Comment on above: Performed By: #### 2 726720, 91662948, 2986964, 26923815, 8278183, 6960028, 2967259, 5841529, 0114412, 1929074, 2175239 ####[facility] [address] [place] [address] Bilirubin [Mass/Vol] 0.8 mg/dL Normal 0.0-1.1 [facility] Comment on above: Performed By: #### 2 016743, 60470993, 4475921, 10478101, 5644630, 6613935, 6634834, 8374145, 3088108, 5078209, 6090827 ####[facility] [address] [place] [address] Calcium [Mass/Vol] 8.7 mg/dL Low 8.9-11.1 [facility] Comment on above: Performed By: #### 2 925570, 87990630, 2278596, 33570830, 4151468, 5369812, 3315604, 4281107, 6792101, 2909499, 8549922 ####[facility] [address] [place] [address] Chloride [Moles/Vol] 109 mmol/L Normal 101-111 [facility] Comment on above: Performed By: #### 2 693502, 99939836, 1180517, 53605216, 7091264, 2498163, 7981335, 5237638, 6588665, 9065477, 7085666 ####[facility] [address] [place] [address] CO2 [Moles/Vol] 23 mmol/L Normal 21-31 [facility] Comment on above: Performed By: #### 2 462982, 12983361, 1345945, 37511717, 7360041, 2049069, 9909744, 2698950, 3137427, 6246781, 0503198 ####[facility] [address] [place] [address] Creatinine [Mass/Vol] 1.3 mg/dL Normal 0.5-1.3 [facility] Comment on above: Performed By: #### 2 854777, 96750400, 7410571, 09167164, 1027025, 0758334, 4242321, 2191594, 6564903, 0212399, 3997889 ####[facility] [address] [place] [address] Globulin (S) [Mass/Vol] 4.0 g/dL Normal 1.4-4.0 F [facility] Comment on above: Performed By: #### 2 837648, 30085288, 0414429, 23103361, 6067670, 2657860, 4422234, 7194424, 6501500, 1294593, 7045505 ####[facility] [address] [place] [address] Glucose [Mass/Vol] 133 mg/dL Normal 55-199 [facility] Comment on above: Result Comment: If t his glucose result represents a fasting glucose, interpretation should refer to the following reference range: 55-99 mg/dL Performed By: #### 2 562025, 78061508, 0263335, 25650266, 3690141, 9399779, 7191501, 8981008, 6698049, 2235123, 5766392 ####[facility] [address] [place] [address] Potassium [Moles/Vol] 4.2 mmol/L Normal 3.5-5.3 [facility] Comment on above: Performed By: #### 2 781951, 16677615, 3284891, 29544795, 3359288, 1243047, 7796633, 5786832, 5481795, 4595817, 7782593 ####[facility] [address] [place] [address] Protein [Mass/Vol] 7.1 g/dL Normal 6.0-7.8 [facility] Comment on above: Performed By: #### 2 013010, 10887852, 4484277, 43524154, 7684969, 0331386, 2233518, 2941266, 6085076, 4151291, 2208713 ####[facility] [address] [place] [address] Sodium [Moles/Vol] 139 mmol/L Normal 135-145 [facility] Comment on above: Performed By: #### 2 452945, 93314432, 3070224, 55879654, 2211969, 2711553, 3610298, 5640440, 2936981, 3797180, 3531452 ####[facility] [address] [place] [address] Urea nitrogen [Mass/Vol] 28 mg/dL High 5-21 [facility] Comment on above: Performed By: #### 2 218644, 23467139, 2226872, 10150918, 1756587, 5898247, 5113224, 5059422, 0540284, 2062090, 5777704 ####[facility] [address] [place] [address] Urea nitrogen/Creatinine [Mass ratio] 22 No Units High 02-08 [facility] Comment on above: Performed By: #### 2 649693, 80938754, 5435353, 15903315, 9136665, 9279570, 8497514, 0036382, 8059840, 4671196, 9949737 ####[facility] [address] [place] [address] Consent for Treatmenton 08-21 Consent for Treatment [id number]#1.00CD:12 7 Normal [facility] Consent for Treatment [id number]#1.00CD:12 7 Normal [facility] Discharge Instructionson Discharge Instructions [id number]#1.00CD:1 27 Normal [facility] ED Clinical Summaryon 2022 ED Clinical Summary Normal [facility] ED Note-Physicianon 09-09-19 ED Note-Physician Normal [facility] Comment on above: Result Comment: Elec tronically Signed By: Mendez Lucero PA-C\.br\Date and Time Signed: 09/08/22 16:09 EDT\.br\Electronically Co-Signed By: Pedro Nava DO\.br\Date and Time Co-Signed: 09/08/22 16:54 EDT ED Patient Education Noteon 09-08-2022 ED Patient Education Note Normal [facility] ED Patient Summaryon 023 ED Patient Summary Normal [facility] Ironon 09-08-2022 Iron [Mass/Vol] 48 microgram/dL Normal 35-153 [facility] Comment on above: Performed By: #### 2 493309, 48341555, 4937691, 27195212, 2056655, 6921469, 6011330, 1051430, 1086640, 6222487, 0436724 ####[facility] [address] [place] [address] Iron Saturationon 09-08-2022 Iron binding capacity [Mass/Vol] 239 microgram/dL Low 250-400 [facility] Comment on above: Performed By: #### 2 216604, 44116340, 3669660, 20355645, 5463368, 2679130, 7288612, 3136847, 3296034, 7264005, 8994194 ####[facility] [address] [place] [address] Iron saturation [Mass fraction] 20 % Normal 20-50 [facility] Comment on above: Performed By: #### 2 865920, 50401508, 3610270, 53123223, 9779018, 4961987, 8079559, 0862773, 0342036, 9043809, 8006402 ####[facility] [address] [place] [address] Transferrinon 09-08-2022 Transferrin [Mass/Vol] 170 mg/dL Low 200-370 [facility] Comment on above: Performed By: #### 2 496259, 46921730, 9694815, 56709871, 9330630, 8537256, 8802820, 1075860, 7620330, 1741590, 1926194 ####[facility] [address] [place] [address] eGFRon 09-08-2022 GFR/1.73 sq M.predicted among non-blacks MDRD (S/P/Bld) [Vol rate/Area] 43 mL/min/1.73 m2 Low >=59 [facility] Comment on above: Order Comment: Order added by Discern Expert. Result Comment: Cloth Mender aubrey kidney disease could be indicated at eGFR's of less than 60 mL/min/1.73m2. Kidney failure is indicated at less than 15 mL/min/1.73m2. Performed By: #### 2 391777, 55988420, 1687747, 80521966, 8066352, 1834865, 1735706, 3038999, 9125805, 0704914, 7205629 ####[facility] [address] [place] [address] Coding Summary.on 08-04-2022 Coding Summary. Normal [facility] Coding Summary.on 08-02-2022 Coding Summary. Normal [facility] CA 27 29on 08-01-2022 Cancer Ag 27-29 Qn 13.4 unit/mL Invalid Interpretation Code 0.0-38.6 [facility] Comment on above: Result Comment: [place] Immunochemiluminometric Methodology (ICMA)Values obtained with different assay methods or kits cannot be usedinterchangeably. Results cannot be interpreted as absolute evidenceof the presence or absence of malignant disease.Performed at: [address] [id number] PhD [place] Avelar Performed By: #### 2 796542, 2091379, 67480602, 09359252, 2485439 ####[address] [place] [address] Consent for Treatmenton 07-21 Consent for Treatment [id number]#1.00CD:12 7 Normal [facility] Oncology Noteon 08-01-2022 Oncology Note Normal [facility] Comment on above: Result Comment: Elec tronically Signed By: Jane FARMER, Yolande Houston\.br\Date and Time Signed: 08/01/22 15:08 EDT Oncology Progress Noteon Oncology Progress Note Normal [facility] Auto Diffon 07-30-2022 Basophils/100 WBC (Bld) 2.7 % High 0.0-2.0 F [facility] Comment on above: Order Comment: Order Added by Discern Expert. Performed By: #### 2 673085, 3572955, 87227320, 97130333, 5168242 ####[facility] [address] [place] [address] Basophils/Leukocytes Auto (Bld) [Pure # fraction] 0.1 E9/L Normal 0.0-0.2 [facility] Comment on above: Order Comment: Order Added by Discern Expert. Performed By: #### 2 852952, 0428173, 45808329, 63855522, 9380708 ####[address] [place] [address] Eosinophils/100 WBC (Bld) 3.5 % Normal 0.0-8.0 [facility] Comment on above: Order Comment: Order Added by Discern Expert. Performed By: #### 2 193472, 6016427, 53923291, 93073849, 7030805 ####[facility] [address] [place] [address] Eosinophils/Leukocytes Auto (Bld) [Pure # fraction] 0.1 E9/L Normal 0.0-0.5 [facility] Comment on above: Order Comment: Order Added by Faviola Expert. Performed By: #### 2 647490, 9689907, 72498710, 96654432, 2378442 ####[address] [address] Lymphocytes/100 WBC (Bld) 22.7 % Normal 14.0-50.0 [facility] Comment on above: Order Comment: Order Added by Faviola Expert. Performed By: #### 2 477457, 3011010, 40649372, 85980481, 2563968 ####[address] [address] Lymphocytes/Leukocytes Auto (Bld) [Pure # fraction] 0.8 E9/L Low 1.0-4.0 [facility] Comment on above: Order Comment: Order Added by Faviola Expert. Performed By: #### 2 550270, 2959584, 92899025, 37157870, 4585470 ####[address] [address] Monocytes/100 WBC (Bld) 3.2 % Low 4.0-14.0 [facility] Comment on above: Order Comment: Order Added by Faviola Expert. Performed By: #### 2 504614, 8658832, 05440201, 06290462, 1466750 ####[facility] [address] [place] [address] Monocytes/Leukocytes Auto (Bld) [Pure # fraction] 0.1 E9/L Low 0.2-1.0 [facility] Comment on above: Order Comment: Order Added by Discern Expert. Performed By: #### 2 047647, 6855626, 93089934, 41651634, 6336740 ####[address] [place] [address] Neutrophils/100 WBC (Bld) 67.9 % Normal 36.0-75.0 [facility] Comment on above: Order Comment: Order Added by Discern Expert. Performed By: #### 2 096888, 7234263, 48811812, 89853081, 5166386 ####[address] [address] Neutrophils/Leukocytes Auto (Bld) [Pure # fraction] 2.5 E9/L Normal 2.0-7.5 [facility] Comment on above: Order Comment: Order Added by Discern Expert. Performed By: #### 2 558398, 7343315, 55371173, 64548099, 4802214 ####[address] [address] CBC w/ Auto Diffon Erythrocyte distribution width (RBC) [Ratio] 15.9 % High 10.9-14.2 [facility] Comment on above: Performed By: #### 2 103835, 3482504, 64852583, 13552452, 7212383 ####[facility] [address] [place] [address] Hematocrit (Bld) [Volume fraction] 32.4 % Low 34.0-46.0 [facility] Comment on above: Performed By: #### 2 640172, 9871270, 55813988, 83285422, 2982797 ####[facility] [address] [place] [address] Hemoglobin (Bld) [Mass/Vol] 10.5 g/dL Low 12.0-16.0 [facility] Comment on above: Performed By: #### 2 592218, 0174549, 63100846, 16903057, 5332192 ####[facility] [address] [place] [address] MCH (RBC) [Entitic mass] 33.6 pg Normal 27.0-34.0 [facility] Comment on above: Performed By: #### 2 438056, 7647708, 51077357, 35517631, 3282483 ####[facility] [address] [place] [address] MCHC (RBC) [Mass/Vol] 32.5 g/dL Normal 31.4-36.0 [facility] Comment on above: Performed By: #### 2 700277, 4779622, 44953506, 24967750, 8961522 ####[address] MCV (RBC) [Entitic vol] 103.2 fL High 80.0-100.0 F [facility] Comment on above: Performed By: #### 2 145572, 3516400, 84897928, 86924987, 0513914 ####[address] Platelet mean volume (Bld) [Entitic vol] 7.4 fL Normal 6.4-10.8 [facility] Comment on above: Performed By: #### 2 388831, 2175624, 71433524, 19439907, 0664158 ####[facility] [address] [place] [address] Platelets (Bld) [#/Vol] 142.0 E9/L Low 150. 0-500. 0 [facility] Comment on above: Performed By: #### 2 876442, 9113050, 56724827, 83186639, 8810581 ####[facility] [address] [place] [address] RBC (Bld) [#/Vol] 3.1 E12/L Low 4.3-5.9 [facility] Comment on above: Performed By: #### 2 402335, 1366420, 00730131, 92055974, 2024146 ####[facility] [address] [place] [address] WBC corrected for nucl RBC Auto (Bld) [#/Vol] 3.7 E9/L Low 4.0-11.0 [facility] Comment on above: Performed By: #### 2 514690, 1559627, 52352150, 82397108, 0388100 ####[facility] [address] [place] [address] CHEMISTRYOrdered By: SYSTEM SYSTEM on 07-30-2022 Albumin [Mass/Vol] 3.3 g/dL Normal 3.3 - 5.0 gm/dL [facility] Albumin/Globulin [Mass ratio] 1.0 {ratio} Low 1.1 - 2.2 [facility] ALP [Catalytic activity/Vol] 121 [iU]/d High 21 - 98 Int._Unit/ L [facility] ALT No additional P-5'-P [Catalytic activity/Vol] 15 [iU]/d Normal 6 - 46 Int._Unit/ L [facility] Anion gap [Moles/Vol] 11 mmol/L Normal 6 - 16 mEq/L [facility] AST [Catalytic activity/Vol] 15 [iU]/d Normal 5 - 43 Int._Unit/ L [facility] Bilirubin [Mass/Vol] 0.9 mg/dL Normal 0.0 - 1 .1 mg/dL [facility] Calcium [Mass/Vol] 8.5 mg/dL Low 8.9 - 11. 1 mg/dL [facility] Chloride [Moles/Vol] 107 mmol/L Normal 101 - 1 11 mmol/L [facility] CO2 [Moles/Vol] 22 mmol/L Normal 21 - 31 mmol/L [facility] Creatinine [Mass/Vol] 1.3 mg/dL Normal 0.5 - 1.3 mg/dL [facility] GFR/1.73 sq M.predicted among blacks MDRD (S/P/Bld) [Vol rate/Area] 49 mL/min/1.73 m2 Low >=59mL/min /1.73 m2 [facility] [place] S GFR/1.73 sq M.predicted among non-blacks MDRD (S/P/Bld) [Vol rate/Area] 40 mL/min/1.73 m2 Low >=59mL/min /1.73 m2 [facility] [place] S Globulin (S) [Mass/Vol] 3.2 g/dL Normal 1.4 - 4.0 gm/dL [facility] [place]isol Glucose [Mass/Vol] 147 mg/dL Normal 55 - 199 mg/dL [facility] [place] [facility] Potassium [Moles/Vol] 4.0 mmol/L Normal 3.5 - 5.3 mmol/L [facility] [place] [facility] Protein [Mass/Vol] 6.5 g/dL Normal 6.0 - 7.8 gm/dL [facility] [place] [facility] Sodium [Moles/Vol] 136 mmol/L Normal 135 - 145 mmol/L [facility] [place] [facility] Urea nitrogen [Mass/Vol] 33 mg/dL High 5 - 21 mg/dL [facility] [place] Urea nitrogen/Creatinine [Mass ratio] 25 mg/mg High 10 - 20 [facility] [place] Remisol CMPon 07-30-2022 Albumin [Mass/Vol] 3.3 g/dL Normal 3.3-5.0 [facility] Comment on above: Performed By: #### 2 075758, 0155679, 19559014, 98547806, 5445498 ####[facility] [address] [place] [address] Albumin/Globulin (S) [Mass conc ratio] 1.0 Low 1.1-2.2 [facility] Comment on above: Performed By: #### 2 169428, 1729079, 02031065, 02125693, 4249149 ####[facility] [address] [place] [address] ALP [Catalytic activity/Vol] 121 Int._Unit/L High 21-98 [facility] Comment on above: Performed By: #### 2 032387, 1368020, 57071656, 46984440, 1840371 ####[facility] [address] [place] [address] ALT No additional P-5'-P [Catalytic activity/Vol] 15 Int._Unit/L Normal 6-46 [facility] Comment on above: Performed By: #### 2 355707, 2909154, 81444009, 44728139, 2062429 ####[facility] [address] [place] [address] Anion gap [Moles/Vol] 11 mmol/L Normal 6-16 [facility] Comment on above: Performed By: #### 2 405094, 3239648, 11273036, 56662980, 7138828 ####[facility] [address] [place] [address] AST [Catalytic activity/Vol] 15 Int._Unit/L Normal 5-43 [facility] Comment on above: Performed By: #### 2 395339, 7748285, 75922634, 45913948, 3021480 ####[facility] [address] [place] [address] Bilirubin [Mass/Vol] 0.9 mg/dL Normal 0.0-1.1 [facility] Comment on above: Performed By: #### 2 543597, 7156520, 48786372, 69760681, 8937837 ####[facility] [address] [place] [address] Calcium [Mass/Vol] 8.5 mg/dL Low 8.9-11.1 [facility] Comment on above: Performed By: #### 2 093851, 3873776, 15151850, 32970094, 2875547 ####[facility] [address] [place] [address] Chloride [Moles/Vol] 107 mmol/L Normal 101-111 [facility] Comment on above: Performed By: #### 2 507800, 9139053, 19236865, 09135977, 3572765 ####[facility] [address] [place] [address] CO2 [Moles/Vol] 22 mmol/L Normal 21-31 [facility] Comment on above: Performed By: #### 2 666119, 6444420, 47806887, 93673117, 3260615 ####[facility] [address] [place] [address] Creatinine [Mass/Vol] 1.3 mg/dL Normal 0.5-1.3 [facility] Comment on above: Performed By: #### 2 729953, 6300452, 84241514, 42157419, 6698545 ####[facility] [address] [place] [address] Globulin (S) [Mass/Vol] 3.2 g/dL Normal 1.4-4.0 [facility] Comment on above: Performed By: #### 2 488306, 2924921, 26796675, 26481866, 6173128 ####[facility] [address] [place] [address] Glucose [Mass/Vol] 147 mg/dL Normal 55-199 [facility] Comment on above: Result Comment: If t his glucose result represents a fasting glucose, interpretation should refer to the following reference range: 55-99 mg/dL Performed By: #### 2 259432, 1886329, 80503613, 50560353, 3491737 ####[facility] [address] [place] [address] Potassium [Moles/Vol] 4.0 mmol/L Normal 3.5-5.3 [facility] Comment on above: Performed By: #### 2 752638, 1349750, 16282141, 00993356, 6437252 ####[facility] [address] [place] [address] Protein [Mass/Vol] 6.5 g/dL Normal 6.0-7.8 [facility] Comment on above: Performed By: #### 2 404463, 5685420, 01633916, 42552830, 1674902 ####[facility] [address] [place] [address] Sodium [Moles/Vol] 136 mmol/L Normal 135-145 [facility] Comment on above: Performed By: #### 2 647243, 2890681, 77273212, 14017912, 4365610 ####[facility] [address] [place] [address] Urea nitrogen [Mass/Vol] 33 mg/dL High 5-21 [facility] Comment on above: Performed By: #### 2 433786, 8194300, 40615789, 63951080, 0329617 ####[facility] [address] [place] [address] Urea nitrogen/Creatinine [Mass ratio] 25 No Units High 10-20 [facility] Comment on above: Performed By: #### 2 924958, 2766388, 45400419, 15197284, 8854482 ####[facility] [address] [place] [address] Consent for Treatmenton 07-21 Consent for Treatment [id number]#1.00CD:12 7 Normal [facility] HEMATOLOGYOrdered By: SYSTEM SYSTEM on 07-30-2022 Basophils/100 WBC (Bld) 2.7 % High 0.0 - 2.0 % [facility] HemeAutoSS Basophils/Leukocytes Auto (Bld) [Pure # fraction] 0.1 E9/L Normal 0.0 - 0.2 E9/L [facility] HemeAutoSS Eosinophils/100 WBC (Bld) 3.5 % Normal 0.0 - 8.0 % [facility] HemeAutoSS Eosinophils/Leukocytes Auto (Bld) [Pure # fraction] 0.1 E9/L Normal 0.0 - 0.5 E9/L [facility] HemeAutoSS Lymphocytes/100 WBC (Bld) 22.7 % Normal 14.0 - 50.0 % [facility] HemeAutoSS Lymphocytes/Leukocytes Auto (Bld) [Pure # fraction] 0.8 E9/L Low 1.0 - 4.0 E9/L [facility] HemeAutoSS Monocytes/100 WBC (Bld) 3.2 % Low 4.0 - 14.0 % [facility] HemeAutoSS Monocytes/Leukocytes Auto (Bld) [Pure # fraction] 0.1 E9/L Low 0.2 - 1.0 E9/L [facility] HemeAutoSS Neutrophils/100 WBC (Bld) 67.9 % Normal 36.0 - 75.0 % [facility] HemeAutoSS Neutrophils/Leukocytes Auto (Bld) [Pure # fraction] 2.5 E9/L Normal 2.0 - 7.5 E9/L [facility] HemeAutoSS HEMATOLOGYOrdered By: Suad Thorpe on 07-30-2022 Erythrocyte distribution width (RBC) [Ratio] 15.9 % High 10.9 - 14.2 % [facility] HemeAutoSS Hematocrit (Bld) [Volume fraction] 32.4 % Low 34.0 - 46.0 % [facility] HemeAutoSS Hemoglobin (Bld) [Mass/Vol] 10.5 g/dL Low 12.0 - 16.0 gm/dL [facility] HemeAutoSS MCH (RBC) [Entitic mass] 33.6 pg Normal 27.0 - 34.0 pg [facility] HemeAutoSS MCHC (RBC) [Mass/Vol] 32.5 g/dL Normal 31.4 - 36.0 gm/dL [facility] HemeAutoSS MCV (RBC) [Entitic vol] 103.2 fL High 80.0 - 100.0 fL [facility] HemeAutoSS Platelet mean volume (Bld) [Entitic vol] 7.4 fL Normal 6.4 - 10.8 fL [facility] HemeAutoSS Platelets (Bld) [#/Vol] 142.0 E9/L Low 150. 0 - 500.0 E9/L [facility] HemeAutoSS RBC (Bld) [#/Vol] 3.1 E12/L Low 4.3 - 5.9 E12/L [facility] HemeAutoSS WBC corrected for nucl RBC Auto (Bld) [#/Vol] 3.7 E9/L Low 4.0 - 11.0 E9/L [facility] HemeAutoSS eGFRon 07-30-2022 GFR/1.73 sq M.predicted among blacks MDRD (S/P/Bld) [Vol rate/Area] 49 mL/min/1.73 m2 Low >=59 [facility] Comment on above: Order Comment: Order added by Discern Expert. Result Comment: eGFR is race adjusted. AA=. Performed By: #### 2 502648, 7543239, 04789828, 75270592, 9693660 ####[facility] [address] [place] [address] GFR/1.73 sq M.predicted among non-blacks MDRD (S/P/Bld) [Vol rate/Area] 40 mL/min/1.73 m2 Low >=59 [facility] Comment on above: Order Comment: Order added by Discern Expert. Result Comment: Cloth Mender aubrey kidney disease could be indicated at eGFR's of less than 60 mL/min/1.73m2. Kidney failure is indicated at less than 15 mL/min/1.73m2. Performed By: #### 2 418998, 9753588, 23143689, 30473467, 8604244 ####[facility] [address] [place] [address] Coding Summary.on 07-27-2022 Coding Summary. Normal [facility] NM PET w/ CT Scan Skull Base to Midthighon 07-26-2022 NM PET w/ CT Scan Skull Base to Midthigh Normal [facility] RAD - MISCon 07-26-2022 RAD - MISC [id number]#1.00CD:1 27 [facility] Consent for Treatmenton Consent for Treatment [id number]#1.00CD:12 7 Normal [facility] Physician Orderon 07-25-2022 Physician Order [id number]#1.00CD:12 7 Normal [facility] Coding Summary.on 07-13-2022 Coding Summary. Normal [facility] CA 27 29on 07-10-2022 Cancer Ag 27-29 Qn 14.4 unit/mL Invalid Interpretation Code 0.0-38.6 [facility] Comment on above: Result Comment: [place] Immunochemiluminometric Methodology (ICMA)Values obtained with different assay methods or kits cannot be usedinterchangeably. Results cannot be interpreted as absolute evidenceof the presence or absence of malignant disease.Performed at: [address] [id number] PhD [place] Avelar Performed By: #### 2 500330, 7556315, 6944651, 66595189, 83271006 ####[facility] [address] [place] [address] Auto Diffon 07-09-2022 Basophils/100 WBC (Bld) 2.7 % High 0.0-2.0 F [facility] Comment on above: Order Comment: Order Added by Discern Expert. Performed By: #### 2 552254, 3184303, 1913592, 24686647, 39486347 ####[facility] [address] [place] [address] Basophils/Leukocytes Auto (Bld) [Pure # fraction] 0.1 E9/L Normal 0.0-0.2 [facility] Comment on above: Order Comment: Order Added by Discern Expert. Performed By: #### 2 234905, 0374126, 2194045, 23851938, 07118708 ####[address] [place] [address] Eosinophils/100 WBC (Bld) 1.9 % Normal 0.0-8.0 [facility] Comment on above: Order Comment: Order Added by Discern Expert. Performed By: #### 2 478833, 1710241, 8198240, 33913431, 56345965 ####[address] [place] [address] Eosinophils/Leukocytes Auto (Bld) [Pure # fraction] 0.1 E9/L Normal 0.0-0.5 [facility] Comment on above: Order Comment: Order Added by Discern Expert. Performed By: #### 2 539766, 1371719, 9395656, 09124618, 25302257 ####[address] [place] [address] Lymphocytes/100 WBC (Bld) 31.4 % Normal 14.0-50.0 [facility] Comment on above: Order Comment: Order Added by Discern Expert. Performed By: #### 2 517607, 9397811, 2507869, 33045236, 09915967 ####[address] [place] [address] Lymphocytes/Leukocytes Auto (Bld) [Pure # fraction] 1.3 E9/L Normal 1.0-4.0 [facility] Comment on above: Order Comment: Order Added by Discern Expert. Performed By: #### 2 408356, 4792163, 7491828, 72055177, 86827702 ####[address] [place] [address] Monocytes/100 WBC (Bld) 5.5 % Normal 4.0-14.0 [facility] Comment on above: Order Comment: Order Added by Discern Expert. Performed By: #### 2 317050, 0603110, 6404415, 67729660, 10324951 ####[address] [address] Monocytes/Leukocytes Auto (Bld) [Pure # fraction] 0.2 E9/L Normal 0.2-1.0 [facility] Comment on above: Order Comment: Order Added by Faviola Expert. Performed By: #### 2 969339, 4840812, 1027873, 36214691, 39476173 ####[address] [place] [address] Neutrophils/100 WBC (Bld) 58.5 % Normal 36.0-75.0 [facility] Comment on above: Order Comment: Order Added by Discern Expert. Performed By: #### 2 202220, 5277010, 4371972, 59835767, 95262053 ####[address] [place] [address] Neutrophils/Leukocytes Auto (Bld) [Pure # fraction] 2.5 E9/L Normal 2.0-7.5 [facility] Comment on above: Order Comment: Order Added by Faviola Expert. Performed By: #### 2 988881, 0991821, 3187405, 73032490, 39673671 ####[address] [place] [address] CBC w/ Auto Diffon Erythrocyte distribution width (RBC) [Ratio] 17.1 % High 10.9-14.2 [facility] Comment on above: Performed By: #### 2 809494, 4349983, 8314499, 48370203, 69479765 ####[address] [place] [address] Hematocrit (Bld) [Volume fraction] 36.3 % Normal 34.0-46.0 [facility] Comment on above: Performed By: #### 2 059518, 7055819, 9040588, 34357464, 69720296 ####[address] [address] Hemoglobin (Bld) [Mass/Vol] 11.9 g/dL Low 12.0-16.0 [facility] Comment on above: Performed By: #### 2 028214, 6551000, 4094871, 75726831, 32214373 ####[address] [address] MCH (RBC) [Entitic mass] 33.4 pg Normal 27.0-34.0 [facility] Comment on above: Performed By: #### 2 854988, 8938511, 0875740, 28408510, 31672759 ####[address] [address] MCHC (RBC) [Mass/Vol] 32.9 g/dL Normal 31.4-36.0 [facility] Comment on above: Performed By: #### 2 658866, 1946941, 5142615, 31804279, 01120054 ####[address] [address] MCV (RBC) [Entitic vol] 101.5 fL High 80.0-100.0 F [facility] Comment on above: Performed By: #### 2 184125, 3067387, 4610454, 37612373, 36966702 ####[address] [place] [address] Platelet mean volume (Bld) [Entitic vol] 7.3 fL Normal 6.4-10.8 [facility] Comment on above: Performed By: #### 2 701502, 7005793, 5223468, 08569235, 18490347 ####[facility] [address] [place] [address] Platelets (Bld) [#/Vol] 205.0 E9/L Normal 150. 0-500. 0 [facility] Comment on above: Performed By: #### 2 320566, 1510088, 3543758, 11972640, 21028131 ####[address] [place] [address] RBC (Bld) [#/Vol] 3.6 E12/L Low 4.3-5.9 [facility] Comment on above: Performed By: #### 2 274654, 9886611, 4839645, 56165690, 83406874 ####[facility] [address] [place] [address] WBC corrected for nucl RBC Auto (Bld) [#/Vol] 4.2 E9/L Normal 4.0-11.0 [facility] Comment on above: Performed By: #### 2 926740, 3378180, 3501600, 19741151, 29199901 ####[address] [address] CHEMISTRYOrdered By: SYSTEM SYSTEM on 07-09-2022 Albumin [Mass/Vol] 3.6 g/dL Normal 3.3 - 5.0 gm/dL [facility] Albumin/Globulin [Mass ratio] 1.1 {ratio} Normal 1.1 - 2.2 [facility] ALP [Catalytic activity/Vol] 87 [iU]/d Normal 21 - 98 Int._Unit/ L [facility] ALT No additional P-5'-P [Catalytic activity/Vol] 18 [iU]/d Normal 6 - 46 Int._Unit/ L [facility] Anion gap [Moles/Vol] 11 mmol/L Normal 6 - 16 mEq/L [facility] AST [Catalytic activity/Vol] 18 [iU]/d Normal 5 - 43 Int._Unit/ L [facility] Bilirubin [Mass/Vol] 1.0 mg/dL Normal 0.0 - 1 .1 mg/dL [facility] Calcium [Mass/Vol] 8.7 mg/dL Low 8.9 - 11. 1 mg/dL [facility] Chloride [Moles/Vol] 108 mmol/L Normal 101 - 1 11 mmol/L [facility] CO2 [Moles/Vol] 23 mmol/L Normal 21 - 31 mmol/L [facility] Creatinine [Mass/Vol] 1.3 mg/dL Normal 0.5 - 1.3 mg/dL [facility] GFR/1.73 sq M.predicted among blacks MDRD (S/P/Bld) [Vol rate/Area] 49 mL/min/1.73 m2 Low >=59mL/min /1.73 m2 FT Chem S GFR/1.73 sq M.predicted among non-blacks MDRD (S/P/Bld) [Vol rate/Area] 40 mL/min/1.73 m2 Low >=59mL/min /1.73 m2 [facility] [place] S Globulin (S) [Mass/Vol] 3.4 g/dL Normal 1.4 - 4.0 gm/dL [facility] Glucose [Mass/Vol] 119 mg/dL Normal 55 - 199 mg/dL [facility] Potassium [Moles/Vol] 4.1 mmol/L Normal 3.5 - 5.3 mmol/L [facility] Protein [Mass/Vol] 7.0 g/dL Normal 6.0 - 7.8 gm/dL [facility] Sodium [Moles/Vol] 138 mmol/L Normal 135 - 145 mmol/L [facility] Urea nitrogen [Mass/Vol] 24 mg/dL High 5 - 21 mg/dL [facility] Urea nitrogen/Creatinine [Mass ratio] 18 mg/mg Normal 10 - 20 [facility] CMPon 07-09-2022 Albumin [Mass/Vol] 3.6 g/dL Normal 3.3-5.0 [facility] Comment on above: Performed By: #### 2 373195, 0063428, 0630925, 88972099, 47529025 ####[facility] [address] [place] [address] Albumin/Globulin (S) [Mass conc ratio] 1.1 Normal 1.1-2.2 [facility] Comment on above: Performed By: #### 2 065750, 7793500, 2457596, 79765094, 93865915 ####[address] [place] [address] ALP [Catalytic activity/Vol] 87 Int._Unit/L Normal 21-98 [facility] Comment on above: Performed By: #### 2 326532, 5409853, 4676285, 15989569, 82454221 ####[address] [place] [address] ALT No additional P-5'-P [Catalytic activity/Vol] 18 Int._Unit/L Normal 6-46 [facility] Comment on above: Performed By: #### 2 092151, 3528002, 0425189, 74792193, 26578091 ####[facility] [address] [place] [address] Anion gap [Moles/Vol] 11 mmol/L Normal 6-16 [facility] Comment on above: Performed By: #### 2 730742, 5888392, 3191566, 41802968, 54658418 ####[address] [place] [address] AST [Catalytic activity/Vol] 18 Int._Unit/L Normal 5-43 [facility] Comment on above: Performed By: #### 2 100718, 4099730, 2781494, 40559771, 62918950 ####[address] [place] [address] Bilirubin [Mass/Vol] 1.0 mg/dL Normal 0.0-1.1 [facility] Comment on above: Performed By: #### 2 330096, 1872268, 9021273, 42266224, 38098717 ####[facility] [address] [place] [address] Calcium [Mass/Vol] 8.7 mg/dL Low 8.9-11.1 [facility] Comment on above: Performed By: #### 2 211383, 8969020, 9510122, 19519468, 40624002 ####[facility] [address] [place] [address] Chloride [Moles/Vol] 108 mmol/L Normal 101-111 [facility] Comment on above: Performed By: #### 2 955689, 8095834, 3379974, 69214463, 58090414 ####[facility] [address] [place] [address] CO2 [Moles/Vol] 23 mmol/L Normal 21-31 [facility] Comment on above: Performed By: #### 2 027089, 6520549, 9871301, 83002283, 91399471 ####[facility] [address] [place] [address] Creatinine [Mass/Vol] 1.3 mg/dL Normal 0.5-1.3 [facility] Comment on above: Performed By: #### 2 450217, 4697595, 0403853, 82304903, 98066488 ####[facility] [address] [place] [address] Globulin (S) [Mass/Vol] 3.4 g/dL Normal 1.4-4.0 F [facility] Comment on above: Performed By: #### 2 095434, 4869780, 0461103, 99137198, 84107099 ####[facility] [address] [place] [address] Glucose [Mass/Vol] 119 mg/dL Normal 55-199 [facility] Comment on above: Result Comment: If t his glucose result represents a fasting glucose, interpretation should refer to the following reference range: 55-99 mg/dL Performed By: #### 2 601633, 5857051, 0111566, 64818538, 58223960 ####[facility] [address] [place] [address] Potassium [Moles/Vol] 4.1 mmol/L Normal 3.5-5.3 [facility] Comment on above: Performed By: #### 2 133969, 9798575, 7426731, 34079716, 95092534 ####[facility] [address] [place] [address] Protein [Mass/Vol] 7.0 g/dL Normal 6.0-7.8 [facility] Comment on above: Performed By: #### 2 551670, 9026118, 0301159, 16622528, 95912878 ####[facility] [address] [place] [address] Sodium [Moles/Vol] 138 mmol/L Normal 135-145 [facility] Comment on above: Performed By: #### 2 450753, 0755853, 8961321, 25001319, 91261610 ####[facility] [address] [place] [address] Urea nitrogen [Mass/Vol] 24 mg/dL High 5-21 [facility] Comment on above: Performed By: #### 2 458292, 6712442, 1101342, 23421242, 22698846 ####[facility] [address] [place] [address] Urea nitrogen/Creatinine [Mass ratio] 18 No Units Normal 10-20 [facility] Comment on above: Performed By: #### 2 931297, 6264389, 6132017, 01130037, 27013161 ####[facility] [address] [place] [address] Consent for Treatmenton 06-21 Consent for Treatment [id number]:12 7 Normal [facility] HEMATOLOGYOrdered By: SYSTEM SYSTEM on 07-09-2022 Basophils/100 WBC (Bld) 2.7 % High 0.0 - 2.0 % [facility] HemeAutoSS Basophils/Leukocytes Auto (Bld) [Pure # fraction] 0.1 E9/L Normal 0.0 - 0.2 E9/L [facility] HemeAutoSS Eosinophils/100 WBC (Bld) 1.9 % Normal 0.0 - 8.0 % [facility] HemeAutoSS Eosinophils/Leukocytes Auto (Bld) [Pure # fraction] 0.1 E9/L Normal 0.0 - 0.5 E9/L [facility] HemeAutoSS Lymphocytes/100 WBC (Bld) 31.4 % Normal 14.0 - 50.0 % [facility] HemeAutoSS Lymphocytes/Leukocytes Auto (Bld) [Pure # fraction] 1.3 E9/L Normal 1.0 - 4.0 E9/L [facility] HemeAutoSS Monocytes/100 WBC (Bld) 5.5 % Normal 4.0 - 14.0 % [facility] HemeAutoSS Monocytes/Leukocytes Auto (Bld) [Pure # fraction] 0.2 E9/L Normal 0.2 - 1.0 E9/L [facility] HemeAutoSS Neutrophils/100 WBC (Bld) 58.5 % Normal 36.0 - 75.0 % [facility] HemeAutoSS Neutrophils/Leukocytes Auto (Bld) [Pure # fraction] 2.5 E9/L Normal 2.0 - 7.5 E9/L [facility] HemeAutoSS HEMATOLOGYOrdered By: Dianne Villa on 07-09-2022 Erythrocyte distribution width (RBC) [Ratio] 17.1 % High 10.9 - 14.2 % [facility] HemeAutoSS Hematocrit (Bld) [Volume fraction] 36.3 % Normal 34.0 - 46.0 % [facility] HemeAutoSS Hemoglobin (Bld) [Mass/Vol] 11.9 g/dL Low 12.0 - 16.0 gm/dL [facility] HemeAutoSS MCH (RBC) [Entitic mass] 33.4 pg Normal 27.0 - 34.0 pg [facility] HemeAutoSS MCHC (RBC) [Mass/Vol] 32.9 g/dL Normal 31.4 - 36.0 gm/dL [facility] HemeAutoSS MCV (RBC) [Entitic vol] 101.5 fL High 80.0 - 100.0 fL [facility] HemeAutoSS Platelet mean volume (Bld) [Entitic vol] 7.3 fL Normal 6.4 - 10.8 fL [facility] HemeAutoSS Platelets (Bld) [#/Vol] 205.0 E9/L Normal 150. 0 - 500.0 E9/L [facility] [place] HemeAutoSS RBC (Bld) [#/Vol] 3.6 E12/L Low 4.3 - 5.9 E12/L [facility] [place] [place] HemeAutoSS WBC corrected for nucl RBC Auto (Bld) [#/Vol] 4.2 E9/L Normal 4.0 - 11.0 E9/L [facility] [place] HemeAutoSS eGFRon 07-09-2022 GFR/1.73 sq M.predicted among blacks MDRD (S/P/Bld) [Vol rate/Area] 49 mL/min/1.73 m2 Low >=59 [facility] Comment on above: Order Comment: Order added by Discern Expert. Result Comment: eGFR is race adjusted. AA=. Performed By: #### 2 050573, 7604685, 9940900, 81390390, 42103672 ####[facility] [address] [place] [address] GFR/1.73 sq M.predicted among non-blacks MDRD (S/P/Bld) [Vol rate/Area] 40 mL/min/1.73 m2 Low >=59 [facility] Comment on above: Order Comment: Order added by Discern Expert. Result Comment: Cloth Mender aubrey kidney disease could be indicated at eGFR's of less than 60 mL/min/1.73m2. Kidney failure is indicated at less than 15 mL/min/1.73m2. Performed By: #### 2 336317, 5032134, 8612223, 55441269, 79135122 ####[facility] [address] [place] [address] ONC - Otheron 06-28-2022 ONC - Other [id number]#[id number]:1 27 Normal [facility] Physician Orderon 06-12-2022 Physician Order [id number]#1.00CD:1 27 Normal [facility] Coding Summary.on 06-07-2022 Coding Summary. Normal [facility] CA 27 29on 06-06-2022 Cancer Ag 27-29 Qn 17.2 unit/mL Invalid Interpretation Code 0.0-38.6 [facility] Comment on above: Result Comment: [facility] Immunochemiluminometric Methodology (ICMA)Values obtained with different assay methods or kits cannot be usedinterchangeably. Results cannot be interpreted as absolute evidenceof the presence or absence of malignant disease.Performed at: [facility] [place], [place] [id number] PhD [place] Avelar Performed By: #### 2 262852, 92822700, 9715954, 81927549, 6635613 ####[facility] [address] [place] [address] Consent for Treatmenton 05-23 Consent for Treatment [id number]#[id number]:12 7 Normal [facility] Oncology Noteon 06-06-2022 Oncology Note Normal [facility] Comment on above: Result Comment: Elec tronically Signed By: Jane FARMER, Yolande Houston\.br\Date and Time Signed: 06/06/22 14:03 EST Oncology Progress Noteon Oncology Progress Note Normal [facility] Auto Diffon 06-05-2022 Basophils/100 WBC (Bld) 2.5 % High 0.0-2.0 F [facility] Comment on above: Order Comment: Order Added by Discern Expert. Performed By: #### 2 252151, 77662562, 5442718, 16471232, 3012263 ####[facility] [address] [place] [address] Basophils/Leukocytes Auto (Bld) [Pure # fraction] 0.1 E9/L Normal 0.0-0.2 [facility] Comment on above: Order Comment: Order Added by Discern Expert. Performed By: #### 2 399790, 71252420, 0202813, 97693589, 8068919 ####[facility] [address] [place] [address] Eosinophils/100 WBC (Bld) 1.7 % Normal 0.0-8.0 [facility] Comment on above: Order Comment: Order Added by Discern Expert. Performed By: #### 2 793008, 41477963, 4514009, 15958966, 2435772 ####[facility] [address] [place] [address] Eosinophils/Leukocytes Auto (Bld) [Pure # fraction] 0.1 E9/L Normal 0.0-0.5 [facility] Comment on above: Order Comment: Order Added by Discern Expert. Performed By: #### 2 696000, 36377523, 0324492, 95953853, 7340931 ####[address] [address] Lymphocytes/100 WBC (Bld) 49.6 % Normal 14.0-50.0 [facility] Comment on above: Order Comment: Order Added by Faviola Expert. Performed By: #### 2 050944, 24268718, 0398941, 25255799, 2840811 ####[address] [address] Lymphocytes/Leukocytes Auto (Bld) [Pure # fraction] 2.3 E9/L Normal 1.0-4.0 [facility] Comment on above: Order Comment: Order Added by Faviola Expert. Performed By: #### 2 051049, 20812417, 4094660, 08476047, 6492769 ####[address] [address] Monocytes/100 WBC (Bld) 8.1 % Normal 4.0-14.0 [facility] Comment on above: Order Comment: Order Added by Faviola Expert. Performed By: #### 2 749298, 14441959, 6748945, 48487601, 1080583 ####[address] [address] Monocytes/Leukocytes Auto (Bld) [Pure # fraction] 0.4 E9/L Normal 0.2-1.0 [facility] Comment on above: Order Comment: Order Added by Discern Expert. Performed By: #### 2 160239, 61468859, 3485694, 96451976, 7846158 ####[facility] [address] [place] [address] Neutrophils/100 WBC (Bld) 38.1 % Normal 36.0-75.0 [facility] Comment on above: Order Comment: Order Added by Discern Expert. Performed By: #### 2 282529, 73186094, 9063918, 81857616, 4560749 ####[facility] [address] [place] [address] Neutrophils/Leukocytes Auto (Bld) [Pure # fraction] 1.8 E9/L Low 2.0-7.5 [facility] Comment on above: Order Comment: Order Added by Discern Expert. Performed By: #### 2 454804, 96542434, 3433760, 39173400, 1909818 ####[address] [address] CBC w/ Auto Diffon 3 Erythrocyte distribution width (RBC) [Ratio] 17.2 % High 10.9-14.2 [facility] Comment on above: Performed By: #### 2 100602, 09946345, 1958250, 83907623, 0276601 ####[address] [address] Hematocrit (Bld) [Volume fraction] 37.6 % Normal 34.0-46.0 [facility] Comment on above: Performed By: #### 2 648973, 54762648, 5041401, 12587026, 8619079 ####[address] [place] [address] Hemoglobin (Bld) [Mass/Vol] 12.7 g/dL Normal 12.0-16.0 [facility] Comment on above: Performed By: #### 2 919304, 92397373, 5118690, 83454581, 6767769 ####[address] [address] MCH (RBC) [Entitic mass] 33.2 pg Normal 27.0-34.0 [facility] Comment on above: Performed By: #### 2 578437, 80158154, 1853068, 07260451, 1694909 ####[facility] [address] MCHC (RBC) [Mass/Vol] 33.8 g/dL Normal 31.4-36.0 [facility] Comment on above: Performed By: #### 2 867992, 70965515, 9863653, 61099494, 5692203 ####[address] [address] MCV (RBC) [Entitic vol] 98.2 fL Normal 80.0-100.0 F [facility] Comment on above: Performed By: #### 2 256985, 23142176, 7777204, 27880236, 8945548 ####[address] Platelet mean volume (Bld) [Entitic vol] 7.8 fL Normal 6.4-10.8 [facility] Comment on above: Performed By: #### 2 132305, 14343575, 0393276, 15494902, 1199189 ####[facility] [address] [place] [address] Platelets (Bld) [#/Vol] 116.0 E9/L Low 150. 0-500. 0 [facility] Comment on above: Performed By: #### 2 927017, 95342577, 1842860, 36263229, 3796691 ####[facility] [address] [place] [address] RBC (Bld) [#/Vol] 3.8 E12/L Low 4.3-5.9 [facility] Comment on above: Performed By: #### 2 790092, 55048339, 7990583, 76043182, 0881467 ####[facility] [address] [place] [address] WBC corrected for nucl RBC Auto (Bld) [#/Vol] 4.6 E9/L Normal 4.0-11.0 [facility] Comment on above: Performed By: #### 2 348501, 48681601, 1165778, 38868115, 4857561 ####[facility] [address] [place] [address] CHEMISTRYOrdered By: SYSTEM SYSTEM on 06-05-2022 Albumin [Mass/Vol] 3.6 g/dL Normal 3.3 - 5.0 gm/dL [facility] Albumin/Globulin [Mass ratio] 1.2 {ratio} Normal 1.1 - 2.2 [facility] ALP [Catalytic activity/Vol] 79 [iU]/d Normal 21 - 98 Int._Unit/ L [facility] ALT No additional P-5'-P [Catalytic activity/Vol] 14 [iU]/d Normal 6 - 46 Int._Unit/ L [facility] Anion gap [Moles/Vol] 12 mmol/L Normal 6 - 16 mEq/L [facility] AST [Catalytic activity/Vol] 16 [iU]/d Normal 5 - 43 Int._Unit/ L [facility] Bilirubin [Mass/Vol] 1.0 mg/dL Normal 0.0 - 1 .1 mg/dL [facility] Calcium [Mass/Vol] 8.7 mg/dL Low 8.9 - 11. 1 mg/dL [facility] Chloride [Moles/Vol] 107 mmol/L Normal 101 - 1 11 mmol/L [facility] CO2 [Moles/Vol] 23 mmol/L Normal 21 - 31 mmol/L [facility] Creatinine [Mass/Vol] 1.2 mg/dL Normal 0.5 - 1.3 mg/dL [facility] GFR/1.73 sq M.predicted among blacks MDRD (S/P/Bld) [Vol rate/Area] 54 mL/min/1.73 m2 Low >=59mL/min /1.73 m2 [facility] Chem S GFR/1.73 sq M.predicted among non-blacks MDRD (S/P/Bld) [Vol rate/Area] 44 mL/min/1.73 m2 Low >=59mL/min /1.73 m2 [facility] Chem S Globulin (S) [Mass/Vol] 3.1 g/dL Normal 1.4 - 4.0 gm/dL [facility] [place] Remisol Glucose [Mass/Vol] 121 mg/dL Normal 55 - 199 mg/dL [facility] Remisol Potassium [Moles/Vol] 4.0 mmol/L Normal 3.5 - 5.3 mmol/L [facility] [place] Remisol Protein [Mass/Vol] 6.7 g/dL Normal 6.0 - 7.8 gm/dL [facility] [place] Remisol Sodium [Moles/Vol] 138 mmol/L Normal 135 - 145 mmol/L [facility] [place] Remisol Urea nitrogen [Mass/Vol] 26 mg/dL High 5 - 21 mg/dL [facility] [place] Remisol Urea nitrogen/Creatinine [Mass ratio] 22 mg/mg High 10 - 20 [facility] [place] Remisol CMPon 06-05-2022 Albumin [Mass/Vol] 3.6 g/dL Normal 3.3-5.0 [facility] Comment on above: Performed By: #### 2 623852, 89694489, 1872932, 93143570, 4267500 ####[facility] [address] [place] [address] Albumin/Globulin (S) [Mass conc ratio] 1.2 Normal 1.1-2.2 [facility] Comment on above: Performed By: #### 2 800674, 73876908, 5806145, 64783397, 3835384 ####[facility] [address] [place] [address] ALP [Catalytic activity/Vol] 79 Int._Unit/L Normal 21-98 [facility] Comment on above: Performed By: #### 2 508895, 71830621, 1815409, 59816359, 0481710 ####[facility] [address] [place] [address] ALT No additional P-5'-P [Catalytic activity/Vol] 14 Int._Unit/L Normal 6-46 [facility] Comment on above: Performed By: #### 2 972364, 32176879, 1376030, 46650981, 4624385 ####[facility] [address] [place] [address] Anion gap [Moles/Vol] 12 mmol/L Normal 6-16 [facility] Comment on above: Performed By: #### 2 256454, 45510295, 6698401, 12661607, 0801084 ####[facility] [address] [place] [address] AST [Catalytic activity/Vol] 16 Int._Unit/L Normal 5-43 [facility] Comment on above: Performed By: #### 2 103665, 71091007, 9251554, 30730238, 0555603 ####[facility] [address] [place] [address] Bilirubin [Mass/Vol] 1.0 mg/dL Normal 0.0-1.1 [facility] Comment on above: Performed By: #### 2 547135, [id number], 1572625, 24166240, 9035108 ####[facility] [address] [place] [address] Calcium [Mass/Vol] 8.7 mg/dL Low 8.9-11.1 [facility] Comment on above: Performed By: #### 2 635454, 75174520, 1347543, 78157559, 3331402 ####[facility] [address] [place] [address] Chloride [Moles/Vol] 107 mmol/L Normal 101-111 [facility] Comment on above: Performed By: #### 2 050231, 27629179, 6556620, 74774341, 9304682 ####[facility] [address] [place] [address] CO2 [Moles/Vol] 23 mmol/L Normal 21-31 [facility] Comment on above: Performed By: #### 2 716156, 74324022, 1591874, 55729264, 0970426 ####[facility] [address] [place] [address] Creatinine [Mass/Vol] 1.2 mg/dL Normal 0.5-1.3 [facility] Comment on above: Performed By: #### 2 879006, 86335119, 2844686, 91553149, 2251633 ####[facility] [address] [place] [address] Globulin (S) [Mass/Vol] 3.1 g/dL Normal 1.4-4.0 F [facility] Comment on above: Performed By: #### 2 844081, 35469631, 8473109, 28315295, 1940497 ####[facility] [address] [place] [address] Glucose [Mass/Vol] 121 mg/dL Normal 55-199 [facility] Comment on above: Result Comment: If t his glucose result represents a fasting glucose, interpretation should refer to the following reference range: 55-99 mg/dL Performed By: #### 2 115294, 83741590, 7814831, 80930443, 4454004 ####[facility] [address] [place] [address] Potassium [Moles/Vol] 4.0 mmol/L Normal 3.5-5.3 [facility] Comment on above: Performed By: #### 2 007229, 01243350, 2383697, 55645426, 1833263 ####[facility] [address] [place] [address] Protein [Mass/Vol] 6.7 g/dL Normal 6.0-7.8 [facility] Comment on above: Performed By: #### 2 304272, 03969499, 7832433, 12294928, 0389996 ####[facility] [address] [place] [address] Sodium [Moles/Vol] 138 mmol/L Normal 135-145 [facility] Comment on above: Performed By: #### 2 501574, 94199360, 9059272, 75112102, 7460771 ####[facility] [address] [place] [address] Urea nitrogen [Mass/Vol] 26 mg/dL High 5-21 [facility] Comment on above: Performed By: #### 2 825747, 09661099, 3726526, 81639767, 0726102 ####[facility] [address] [place] [address] Urea nitrogen/Creatinine [Mass ratio] 22 No Units High 10-20 [facility] Comment on above: Performed By: #### 2 738748, 18810079, 0518108, 34389343, 4493874 ####[facility] [address] [place] [address] HEMATOLOGYOrdered By: Hot Mix Mobile SYSTEM on 06-05-2022 Basophils/100 WBC (Bld) 2.5 % High 0.0 - 2.0 % [facility]eAutoSS Basophils/Leukocytes Auto (Bld) [Pure # fraction] 0.1 E9/L Normal 0.0 - 0.2 E9/L [facility] Eosinophils/100 WBC (Bld) 1.7 % Normal 0.0 - 8.0 % [facility]Auto[facility] Eosinophils/Leukocytes Auto (Bld) [Pure # fraction] 0.1 E9/L Normal 0.0 - 0.5 E9/L [facility]Auto[facility] Lymphocytes/100 WBC (Bld) 49.6 % Normal 14.0 - 50.0 % [facility]eAuto[facility] Lymphocytes/Leukocytes Auto (Bld) [Pure # fraction] 2.3 E9/L Normal 1.0 - 4.0 E9/L [facility]Auto[facility] Monocytes/100 WBC (Bld) 8.1 % Normal 4.0 - 14.0 % [facility] Monocytes/Leukocytes Auto (Bld) [Pure # fraction] 0.4 E9/L Normal 0.2 - 1.0 E9/L [facility] Neutrophils/100 WBC (Bld) 38.1 % Normal 36.0 - 75.0 % [facility]Auto[facility] Neutrophils/Leukocytes Auto (Bld) [Pure # fraction] 1.8 E9/L Low 2.0 - 7.5 E9/L [facility] HEMATOLOGYOrdered By: Sana Plasencia on 06-05-2022 Erythrocyte distribution width (RBC) [Ratio] 17.2 % High 10.9 - 14.2 % [facility] Hematocrit (Bld) [Volume fraction] 37.6 % Normal 34.0 - 46.0 % [facility]Auto[facility] Hemoglobin (Bld) [Mass/Vol] 12.7 g/dL Normal 12.0 - 16.0 gm/dL [facility]Auto[facility] MCH (RBC) [Entitic mass] 33.2 pg Normal 27.0 - 34.0 pg [facility] MCHC (RBC) [Mass/Vol] 33.8 g/dL Normal 31.4 - 36.0 gm/dL [facility]Auto[facility] MCV (RBC) [Entitic vol] 98.2 fL Normal 80.0 - 100.0 fL [facility]Auto[facility] Platelet mean volume (Bld) [Entitic vol] 7.8 fL Normal 6.4 - 10.8 fL [facility]eAuto[facility] Platelets (Bld) [#/Vol] 116.0 E9/L Low 150. 0 - 500.0 E9/L [facility]Auto[facility] RBC (Bld) [#/Vol] 3.8 E12/L Low 4.3 - 5.9 E12/L [facility] WBC corrected for nucl RBC Auto (Bld) [#/Vol] 4.6 E9/L Normal 4.0 - 11.0 E9/L [facility]eAutoSS Reference Laboratory Testing Ordered By: Generated DomainUser on 06-05-2022 Cancer Ag 27-29 Qn 17.2 unit/mL Invalid Interpretation Code 0.0-38.6un it/mL [facility] Comment on above: Result Comment: [facility] Centaur Immunochemiluminometric Methodology (ICMA) Values obtained with different assay methods or kits cannot be used interchangeably. Results cannot be interpreted as absolute evidence of the presence or absence of malignant disease. Performed at: [facility] [id number] PhD [place] Avelar eGFRon 06-05-2022 GFR/1.73 sq M.predicted among blacks MDRD (S/P/Bld) [Vol rate/Area] 54 mL/min/1.73 m2 Low >=59 [facility] Comment on above: Order Comment: Order added by Discern Expert. Result Comment: eGFR is race adjusted. AA=. Performed By: #### 2 037098, 05172853, 5859277, 94352693, 8151841 ####[facility] [address] [place] [address] GFR/1.73 sq M.predicted among non-blacks MDRD (S/P/Bld) [Vol rate/Area] 44 mL/min/1.73 m2 Low >=59 [facility] Comment on above: Order Comment: Order added by Discern Expert. Result Comment: Cloth Mender aubrey kidney disease could be indicated at eGFR's of less than 60 mL/min/1.73m2. Kidney failure is indicated at less than 15 mL/min/1.73m2. Performed By: #### 2 360219, 68278381, 4137524, 79786064, 5655725 ####[facility] [address] [place] [address] Auto Diffon 05-07-2022 Basophils/100 WBC (Bld) 2.2 % High 0.0-2.0 [facility] Comment on above: Order Comment: Order Added by Faviola Expert. Performed By: #### 2 662058, 9606061, 4186831, 41633140 ####[facility] [address] [place] [address] Basophils/Leukocytes Auto (Bld) [Pure # fraction] 0.1 E9/L Normal 0.0-0.2 [facility] Comment on above: Order Comment: Order Added by Faviola Expert. Performed By: #### 2 123166, 1582342, 8597653, 89871955 ####[facility] [address] [place] [address] Eosinophils/100 WBC (Bld) 1.4 % Normal 0.0-8.0 [facility] Comment on above: Order Comment: Order Added by Faviola Expert. Performed By: #### 2 888706, 4003172, 1476420, 58514264 ####[facility] [address] [place] [address] Eosinophils/Leukocytes Auto (Bld) [Pure # fraction] 0.1 E9/L Normal 0.0-0.5 [facility] Comment on above: Order Comment: Order Added by Discern Expert. Performed By: #### 2 130518, 4809036, 4367882, 99194984 ####[address] [address] Lymphocytes/100 WBC (Bld) 49.1 % Normal 14.0-50.0 [facility] Comment on above: Order Comment: Order Added by Faviola Expert. Performed By: #### 2 017976, 1758465, 9693407, 71374761 ####[address] [address] Lymphocytes/Leukocytes Auto (Bld) [Pure # fraction] 1.9 E9/L Normal 1.0-4.0 [facility] Comment on above: Order Comment: Order Added by Faviola Expert. Performed By: #### 2 372870, 7268173, 9168492, 52805901 ####[address] [address] Monocytes/100 WBC (Bld) 7.5 % Normal 4.0-14.0 [facility] Comment on above: Order Comment: Order Added by Faviola Expert. Performed By: #### 2 071360, 5453213, 0406919, 62079499 ####[address] [address] Monocytes/Leukocytes Auto (Bld) [Pure # fraction] 0.3 E9/L Normal 0.2-1.0 [facility] Comment on above: Order Comment: Order Added by Faviola Expert. Performed By: #### 2 502979, 8937067, 6716751, 45068718 ####[address] [place] [address] Neutrophils/100 WBC (Bld) 39.8 % Normal 36.0-75.0 [facility] Comment on above: Order Comment: Order Added by Faviola Expert. Performed By: #### 2 454686, 1222070, 9808899, 81703291 ####[address] [address] Neutrophils/Leukocytes Auto (Bld) [Pure # fraction] 1.5 E9/L Low 2.0-7.5 [facility] Comment on above: Order Comment: Order Added by Discern Expert. Performed By: #### 2 042179, 6544143, 4801915, 89009069 ####[address] [address] CBC w/ Auto Diffon Erythrocyte distribution width (RBC) [Ratio] 14.9 % High 10.9-14.2 [facility] Comment on above: Performed By: #### 2 498233, 4275145, 1650431, 34121467 ####[address] [address] Hematocrit (Bld) [Volume fraction] 41.2 % Normal 34.0-46.0 [facility] Comment on above: Performed By: #### 2 245097, 0555486, 7543549, 24347439 ####[address] [address] Hemoglobin (Bld) [Mass/Vol] 13.6 g/dL Normal 12.0-16.0 [facility] Comment on above: Performed By: #### 2 209269, 4345608, 3173182, 20314612 ####[address] [address] MCH (RBC) [Entitic mass] 31.4 pg Normal 27.0-34.0 [facility] Comment on above: Performed By: #### 2 321624, 1196967, 3782114, 39504843 ####[address] [address] MCHC (RBC) [Mass/Vol] 33.1 g/dL Normal 31.4-36.0 [facility] Comment on above: Performed By: #### 2 850936, 5977630, 4882614, 66768441 ####[address] [address] MCV (RBC) [Entitic vol] 94.7 fL Normal 80.0-100.0 F [facility] Comment on above: Performed By: #### 2 013696, 5935321, 9596818, 52006298 ####[facility] [address] [place] [address] Platelet mean volume (Bld) [Entitic vol] 7.5 fL Normal 6.4-10.8 [facility] Comment on above: Performed By: #### 2 793152, 0277522, 0275552, 27325928 ####[facility] [address] [place] [address] Platelets (Bld) [#/Vol] 134.0 E9/L Low 150. 0-500. 0 [facility] Comment on above: Performed By: #### 2 707657, 5799089, 0079204, 68279912 ####[address] [address] RBC (Bld) [#/Vol] 4.4 E12/L Normal 4.3-5.9 [facility] Comment on above: Performed By: #### 2 974931, 0012024, 2642303, 56855255 ####[address] [address] WBC corrected for nucl RBC Auto (Bld) [#/Vol] 3.8 E9/L Low 4.0-11.0 [facility] Comment on above: Performed By: #### 2 055473, 5359252, 8825445, 89427115 ####[address] [address] CHEMISTRYOrdered By: SYSTEM SYSTEM on 05-07-2022 Albumin [Mass/Vol] 3.7 g/dL Normal 3.3 - 5.0 gm/dL [facility] Albumin/Globulin [Mass ratio] 1.2 {ratio} Normal 1.1 - 2.2 [facility] ALP [Catalytic activity/Vol] 74 [iU]/d Normal 21 - 98 Int._Unit/ L [facility] ALT No additional P-5'-P [Catalytic activity/Vol] 19 [iU]/d Normal 6 - 46 Int._Unit/ L [facility] Anion gap [Moles/Vol] 15 mmol/L Normal 6 - 16 mEq/L [facility] AST [Catalytic activity/Vol] 19 [iU]/d Normal 5 - 43 Int._Unit/ L [facility] Bilirubin [Mass/Vol] 0.9 mg/dL Normal 0.0 - 1 .1 mg/dL [facility] Calcium [Mass/Vol] 8.9 mg/dL Normal 8.9 - 11. 1 mg/dL [facility] Chloride [Moles/Vol] 106 mmol/L Normal 101 - 1 11 mmol/L [facility] CO2 [Moles/Vol] 20 mmol/L Low 21 - 31 mmol/L [facility] Creatinine [Mass/Vol] 1.3 mg/dL Normal 0.5 - 1.3 mg/dL [facility] GFR/1.73 sq M.predicted among blacks MDRD (S/P/Bld) [Vol rate/Area] 49 mL/min/1.73 m2 Low >=59mL/min /1.73 m2 [facility] [place] S GFR/1.73 sq M.predicted among non-blacks MDRD (S/P/Bld) [Vol rate/Area] 40 mL/min/1.73 m2 Low >=59mL/min /1.73 m2 [facility] [place] S Globulin (S) [Mass/Vol] 3.2 g/dL Normal 1.4 - 4.0 gm/dL [facility] Glucose [Mass/Vol] 144 mg/dL Normal 55 - 199 mg/dL [facility] Potassium [Moles/Vol] 4.2 mmol/L Normal 3.5 - 5.3 mmol/L [facility] Protein [Mass/Vol] 6.9 g/dL Normal 6.0 - 7.8 gm/dL [facility] Sodium [Moles/Vol] 137 mmol/L Normal 135 - 145 mmol/L [facility] Urea nitrogen [Mass/Vol] 26 mg/dL High 5 - 21 mg/dL [facility] Urea nitrogen/Creatinine [Mass ratio] 20 mg/mg Normal 10 - 20 [facility] CMPon 05-07-2022 Albumin [Mass/Vol] 3.7 g/dL Normal 3.3-5.0 [facility] Comment on above: Performed By: #### 2 871425, 8614338, 2836375, 59619514 ####[facility] [address] [place] [address] Albumin/Globulin (S) [Mass conc ratio] 1.2 Normal 1.1-2.2 [facility] Comment on above: Performed By: #### 2 431605, 2786850, 4859221, 42271081 ####[facility] [address] [place] [address] ALP [Catalytic activity/Vol] 74 Int._Unit/L Normal 21-98 [facility] Comment on above: Performed By: #### 2 254368, 1764979, 9712152, 72796983 ####[address] [place] [address] ALT No additional P-5'-P [Catalytic activity/Vol] 19 Int._Unit/L Normal 6-46 [facility] Comment on above: Performed By: #### 2 469150, 2101727, 3132640, 91689611 ####[facility] [address] [place] [address] Anion gap [Moles/Vol] 15 mmol/L Normal 6-16 [facility] Comment on above: Performed By: #### 2 410383, 2853949, 4426899, 35766608 ####[facility] [address] [place] [address] AST [Catalytic activity/Vol] 19 Int._Unit/L Normal 5-43 [facility] Comment on above: Performed By: #### 2 335941, 8622546, 3304832, 04286466 ####[facility] [address] [place] [address] Bilirubin [Mass/Vol] 0.9 mg/dL Normal 0.0-1.1 [facility] Comment on above: Performed By: #### 2 360534, 1921991, 0611792, 53767871 ####[facility] [address] [place] [address] Calcium [Mass/Vol] 8.9 mg/dL Normal 8.9-11.1 [facility] Comment on above: Performed By: #### 2 030989, 4838690, 0043620, 48987205 ####[facility] [address] [place] [address] Chloride [Moles/Vol] 106 mmol/L Normal 101-111 [facility] Comment on above: Performed By: #### 2 486714, 8874960, 6743406, 15788180 ####[facility] [address] [place] [address] CO2 [Moles/Vol] 20 mmol/L Low 21-31 [facility] Comment on above: Performed By: #### 2 191116, 4333816, 2915431, 02331346 ####[facility] [address] [place] [address] Creatinine [Mass/Vol] 1.3 mg/dL Normal 0.5-1.3 [facility] Comment on above: Performed By: #### 2 668162, 2834067, 2706278, 88931041 ####[facility] [address] [place] [address] Globulin (S) [Mass/Vol] 3.2 g/dL Normal 1.4-4.0 F [facility] Comment on above: Performed By: #### 2 965963, 4456152, 5471453, 90636523 ####[facility] [address] [place] [address] Glucose [Mass/Vol] 144 mg/dL Normal 55-199 [facility] Comment on above: Result Comment: If t his glucose result represents a fasting glucose, interpretation should refer to the following reference range: 55-99 mg/dL Performed By: #### 2 367118, 0129590, 3326251, 60295456 ####[facility] [address] [place] [address] Potassium [Moles/Vol] 4.2 mmol/L Normal 3.5-5.3 [facility] Comment on above: Performed By: #### 2 098258, 6804548, 2587007, 63362503 ####[facility] [address] [place] [address] Protein [Mass/Vol] 6.9 g/dL Normal 6.0-7.8 [facility] Comment on above: Performed By: #### 2 018978, 9547496, 2639171, 03749935 ####[facility] [address] [place] [address] Sodium [Moles/Vol] 137 mmol/L Normal 135-145 [facility] Comment on above: Performed By: #### 2 210864, 6992668, 7303717, 22418476 ####[facility] [address] [place] [address] Urea nitrogen [Mass/Vol] 26 mg/dL High 5-21 [facility] Comment on above: Performed By: #### 2 128432, 3811211, 3465342, 91360732 ####[facility] [address] [place] [address] Urea nitrogen/Creatinine [Mass ratio] 20 No Units Normal 10-20 [facility] Comment on above: Performed By: #### 2 067539, 6376556, 7929396, 72803991 ####[facility] [address] [place] [address] HEMATOLOGYOrdered By: SYSTEM SYSTEM on 05-07-2022 Basophils/100 WBC (Bld) 2.2 % High 0.0 - 2.0 % [facility]Auto[facility] Basophils/Leukocytes Auto (Bld) [Pure # fraction] 0.1 E9/L Normal 0.0 - 0.2 E9/L [facility] Eosinophils/100 WBC (Bld) 1.4 % Normal 0.0 - 8.0 % [facility] Eosinophils/Leukocytes Auto (Bld) [Pure # fraction] 0.1 E9/L Normal 0.0 - 0.5 E9/L [facility] Lymphocytes/100 WBC (Bld) 49.1 % Normal 14.0 - 50.0 % [facility] Lymphocytes/Leukocytes Auto (Bld) [Pure # fraction] 1.9 E9/L Normal 1.0 - 4.0 E9/L [facility] Monocytes/100 WBC (Bld) 7.5 % Normal 4.0 - 14.0 % [facility] Monocytes/Leukocytes Auto (Bld) [Pure # fraction] 0.3 E9/L Normal 0.2 - 1.0 E9/L [facility] Neutrophils/100 WBC (Bld) 39.8 % Normal 36.0 - 75.0 % [facility] Neutrophils/Leukocytes Auto (Bld) [Pure # fraction] 1.5 E9/L Low 2.0 - 7.5 E9/L [facility] HEMATOLOGYOrdered By: Jaime Londono on 05-07-2022 Erythrocyte distribution width (RBC) [Ratio] 14.9 % High 10.9 - 14.2 % [facility] Hematocrit (Bld) [Volume fraction] 41.2 % Normal 34.0 - 46.0 % [facility] Hemoglobin (Bld) [Mass/Vol] 13.6 g/dL Normal 12.0 - 16.0 gm/dL [facility] MCH (RBC) [Entitic mass] 31.4 pg Normal 27.0 - 34.0 pg [facility] MCHC (RBC) [Mass/Vol] 33.1 g/dL Normal 31.4 - 36.0 gm/dL [facility] MCV (RBC) [Entitic vol] 94.7 fL Normal 80.0 - 100.0 fL [facility] Platelet mean volume (Bld) [Entitic vol] 7.5 fL Normal 6.4 - 10.8 fL [facility] Platelets (Bld) [#/Vol] 134.0 E9/L Low 150. 0 - 500.0 E9/L [facility] RBC (Bld) [#/Vol] 4.4 E12/L Normal 4.3 - 5.9 E12/L [facility] WBC corrected for nucl RBC Auto (Bld) [#/Vol] 3.8 E9/L Low 4.0 - 11.0 E9/L [facility] [place] [facility]eAutoSS eGFRon 05-07-2022 GFR/1.73 sq M.predicted among blacks MDRD (S/P/Bld) [Vol rate/Area] 49 mL/min/1.73 m2 Low >=59 [facility] Comment on above: Order Comment: Order added by Discern Expert. Result Comment: eGFR is race adjusted. AA=. Performed By: #### 2 348420, 3819684, 7979136, 91341965 ####[facility] [address] [place] [address] GFR/1.73 sq M.predicted among non-blacks MDRD (S/P/Bld) [Vol rate/Area] 40 mL/min/1.73 m2 Low >=59 [facility] Comment on above: Order Comment: Order added by Discern Expert. Result Comment: Cloth Mender aubrey kidney disease could be indicated at eGFR's of less than 60 mL/min/1.73m2. Kidney failure is indicated at less than 15 mL/min/1.73m2. Performed By: #### 2 878691, 2181377, 1848227, 44410569 ####[facility] [address] [place] [address] ONC - Otheron 05-02-2022 ONC - Other [id number]:1 27 Normal [facility] ONC - Otheron 05-01-2022 ONC - Other [id number]#[id number]:1 27 Normal [facility] Auto Diffon 04-05-2022 Basophils/100 WBC (Bld) 0.3 % Normal 0.0-2.0 F [facility] Comment on above: Order Comment: Order Added by Discern Expert. Performed By: #### 2 590643, 0753780, 2104773, 42465289 ####[facility] [address] [place] [address] Basophils/Leukocytes Auto (Bld) [Pure # fraction] 0.0 E9/L Normal 0.0-0.2 [facility] Comment on above: Order Comment: Order Added by Discern Expert. Performed By: #### 2 219158, 2467085, 9404076, 33374234 ####[address] [place] [address] Eosinophils/100 WBC (Bld) 7.7 % Normal 0.0-8.0 [facility] Comment on above: Order Comment: Order Added by Discern Expert. Performed By: #### 2 923517, 1226829, 7557041, 54633349 ####[address] [address] Eosinophils/Leukocytes Auto (Bld) [Pure # fraction] 0.4 E9/L Normal 0.0-0.5 [facility] Comment on above: Order Comment: Order Added by Faviola Expert. Performed By: #### 2 884347, 0610956, 4558724, 51250920 ####[address] [address] Lymphocytes/100 WBC (Bld) 40.7 % Normal 14.0-50.0 [facility] Comment on above: Order Comment: Order Added by Discern Expert. Performed By: #### 2 275309, 0649566, 8803286, 37618367 ####[address] [address] Lymphocytes/Leukocytes Auto (Bld) [Pure # fraction] 1.9 E9/L Normal 1.0-4.0 [facility] Comment on above: Order Comment: Order Added by Discern Expert. Performed By: #### 2 228746, 7175946, 2582400, 38862666 ####[address] [address] Monocytes/100 WBC (Bld) 4.4 % Normal 4.0-14.0 F [facility] Comment on above: Order Comment: Order Added by Faviola Expert. Performed By: #### 2 033286, 1040659, 4614752, 85796957 ####[address] [place] [address] Monocytes/Leukocytes Auto (Bld) [Pure # fraction] 0.2 E9/L Normal 0.2-1.0 [facility] Comment on above: Order Comment: Order Added by Discern Expert. Performed By: #### 2 757051, 4953288, 1282211, 84938957 ####[address] [address] Neutrophils/100 WBC (Bld) 46.9 % Normal 36.0-75.0 [facility] Comment on above: Order Comment: Order Added by Discern Expert. Performed By: #### 2 984840, 2437982, 9205270, 79480645 ####[address] [address] Neutrophils/Leukocytes Auto (Bld) [Pure # fraction] 2.2 E9/L Normal 2.0-7.5 [facility] Comment on above: Order Comment: Order Added by Discern Expert. Performed By: #### 2 543106, 9028238, 7365449, 58833391 ####[address] [address] CBC w/ Auto Diffon Erythrocyte distribution width (RBC) [Ratio] 14.1 % Normal 10.9-14.2 [facility] Comment on above: Performed By: #### 2 624667, 5133717, 8480425, 47417696 ####[address] [address] Hematocrit (Bld) [Volume fraction] 41.6 % Normal 34.0-46.0 [facility] Comment on above: Performed By: #### 2 669223, 4086391, 6925839, 16489794 ####[address] [address] Hemoglobin (Bld) [Mass/Vol] 13.8 g/dL Normal 12.0-16.0 [facility] Comment on above: Performed By: #### 2 298187, 6885961, 9521842, 74470403 ####[facility] [address] [place] [address] MCH (RBC) [Entitic mass] 30.9 pg Normal 27.0-34.0 [facility] Comment on above: Performed By: #### 2 498093, 8516647, 3026341, 90558171 ####[address] [address] MCHC (RBC) [Mass/Vol] 33.1 g/dL Normal 31.4-36.0 [facility] Comment on above: Performed By: #### 2 072600, 2591046, 2570759, 08232637 ####[place] [id number] MCV (RBC) [Entitic vol] 93.2 fL Normal 80.0-100.0 F [facility] Comment on above: Performed By: #### 2 437006, 1763614, 7081407, 92666631 ####[address] [address] Platelet mean volume (Bld) [Entitic vol] 7.5 fL Normal 6.4-10.8 [facility] Comment on above: Performed By: #### 2 452707, 9175401, 7538638, 27448946 ####[address] [address] Platelets (Bld) [#/Vol] 173.0 E9/L Normal 150. 0-500. 0 [facility] Comment on above: Performed By: #### 2 406226, 8888142, 1666874, 30724558 ####[address] [address] RBC (Bld) [#/Vol] 4.5 E12/L Normal 4.3-5.9 [facility] Comment on above: Performed By: #### 2 551060, 0699125, 2315324, 01095684 ####[address] [address] WBC corrected for nucl RBC Auto (Bld) [#/Vol] 4.8 E9/L Normal 4.0-11.0 [facility] Comment on above: Performed By: #### 2 993961, 9857852, 1575533, 97198097 ####[facility] [address] [place] [address] CHEMISTRYOrdered By: SYSTEM SYSTEM on 04-05-2022 Albumin [Mass/Vol] 3.5 g/dL Normal 3.3 - 5.0 gm/dL [facility] Remisol Albumin/Globulin [Mass ratio] 1.2 {ratio} Normal 1.1 - 2.2 [facility] Remisol ALP [Catalytic activity/Vol] 66 [iU]/d Normal 21 - 98 Int._Unit/ L [facility] Remisol ALT No additional P-5'-P [Catalytic activity/Vol] 16 [iU]/d Normal 6 - 46 Int._Unit/ L [facility] Remisol Anion gap [Moles/Vol] 12 mmol/L Normal 6 - 16 mEq/L [facility] Remisol AST [Catalytic activity/Vol] 19 [iU]/d Normal 5 - 43 Int._Unit/ L [facility] Remisol Bilirubin [Mass/Vol] 0.8 mg/dL Normal 0.0 - 1 .1 mg/dL [facility] Remisol Calcium [Mass/Vol] 8.9 mg/dL Normal 8.9 - 11. 1 mg/dL [facility]isol Chloride [Moles/Vol] 106 mmol/L Normal 101 - 1 11 mmol/L [facility] CO2 [Moles/Vol] 23 mmol/L Normal 21 - 31 mmol/L [facility] Remisol Creatinine [Mass/Vol] 1.3 mg/dL Normal 0.5 - 1.3 mg/dL [facility] Remisol GFR/1.73 sq M.predicted among blacks MDRD (S/P/Bld) [Vol rate/Area] 49 mL/min/1.73 m2 Low >=59mL/min /1.73 m2 [facility] Chem S GFR/1.73 sq M.predicted among non-blacks MDRD (S/P/Bld) [Vol rate/Area] 40 mL/min/1.73 m2 Low >=59mL/min /1.73 m2 [facility] [place] S Globulin (S) [Mass/Vol] 2.9 g/dL Normal 1.4 - 4.0 gm/dL [facility] [place] Remisol Glucose [Mass/Vol] 129 mg/dL Normal 55 - 199 mg/dL [facility] [place]isol Potassium [Moles/Vol] 4.2 mmol/L Normal 3.5 - 5.3 mmol/L [facility] [place]isol Protein [Mass/Vol] 6.4 g/dL Normal 6.0 - 7.8 gm/dL [facility] [place]isol Sodium [Moles/Vol] 137 mmol/L Normal 135 - 145 mmol/L [facility] [place]isol Urea nitrogen [Mass/Vol] 23 mg/dL High 5 - 21 mg/dL [facility] [place] Urea nitrogen/Creatinine [Mass ratio] 18 mg/mg Normal 10 - 20 [facility] [place] Remisol CMPon 04-05-2022 Albumin [Mass/Vol] 3.5 g/dL Normal 3.3-5.0 [facility] Comment on above: Performed By: #### 2 256425, 8093009, 4376146, 77056179 ####[facility] [address] [place] [address] Albumin/Globulin (S) [Mass conc ratio] 1.2 Normal 1.1-2.2 [facility] Comment on above: Performed By: #### 2 839023, 7762132, 8790590, 59959700 ####[facility] [address] [place] [address] ALP [Catalytic activity/Vol] 66 Int._Unit/L Normal 21-98 [facility] Comment on above: Performed By: #### 2 630386, 2278509, 8172861, 75165980 ####[facility] [address] [place] [address] ALT No additional P-5'-P [Catalytic activity/Vol] 16 Int._Unit/L Normal 6-46 [facility] Comment on above: Performed By: #### 2 106719, 6161475, 1632510, 37010075 ####[facility] [address] [place] [address] Anion gap [Moles/Vol] 12 mmol/L Normal 6-16 [facility] Comment on above: Performed By: #### 2 460435, 5561328, 9135533, 12155110 ####[facility] [address] [place] [address] AST [Catalytic activity/Vol] 19 Int._Unit/L Normal 5-43 [facility] Comment on above: Performed By: #### 2 924442, 0622784, 9447407, 92319549 ####[facility] [address] [place] [address] Bilirubin [Mass/Vol] 0.8 mg/dL Normal 0.0-1.1 [facility] Comment on above: Performed By: #### 2 771345, 6028314, 6333419, 81237541 ####[facility] [address] [place] [address] Calcium [Mass/Vol] 8.9 mg/dL Normal 8.9-11.1 [facility] Comment on above: Performed By: #### 2 895662, 0565061, 4148669, 81966497 ####[facility] [address] [place] [address] Chloride [Moles/Vol] 106 mmol/L Normal 101-111 [facility] Comment on above: Performed By: #### 2 572240, 1688010, 0071271, 27480017 ####[facility] [address] [place] [address] CO2 [Moles/Vol] 23 mmol/L Normal 21-31 [facility] Comment on above: Performed By: #### 2 136224, 5673084, 4429667, 16715278 ####[facility] [address] [place] [address] Creatinine [Mass/Vol] 1.3 mg/dL Normal 0.5-1.3 [facility] Comment on above: Performed By: #### 2 325211, 6396398, 8973062, 72384088 ####[facility] [address] [place] [address] Globulin (S) [Mass/Vol] 2.9 g/dL Normal 1.4-4.0 F [facility] Comment on above: Performed By: #### 2 631538, 0997760, 4118926, 15365388 ####[facility] [address] [place] [address] Glucose [Mass/Vol] 129 mg/dL Normal 55-199 [facility] Comment on above: Result Comment: If t his glucose result represents a fasting glucose, interpretation should refer to the following reference range: 55-99 mg/dL Performed By: #### 2 631990, 4937232, 6073288, 80423286 ####[facility] [address] [place] [address] Potassium [Moles/Vol] 4.2 mmol/L Normal 3.5-5.3 [facility] Comment on above: Performed By: #### 2 452703, 8456435, 8776897, 37533188 ####[facility] [address] [place] [address] Protein [Mass/Vol] 6.4 g/dL Normal 6.0-7.8 [facility] Comment on above: Performed By: #### 2 736409, 6627987, 9049076, 01129256 ####[facility] [address] [place] [address] Sodium [Moles/Vol] 137 mmol/L Normal 135-145 [facility] Comment on above: Performed By: #### 2 530985, 6279806, 2236830, 90684590 ####[facility] [address] [place] [address] Urea nitrogen [Mass/Vol] 23 mg/dL High 5-21 [facility] Comment on above: Performed By: #### 2 583410, 4103779, 1292511, 78321688 ####[facility] [address] [place] [address] Urea nitrogen/Creatinine [Mass ratio] 18 No Units Normal 10-20 [facility] Comment on above: Performed By: #### 2 706298, 8633534, 6860412, 20042272 ####[facility] [address] [place] [address] HEMATOLOGYOrdered By: SYSTEM SYSTEM on 04-05-2022 Basophils/100 WBC (Bld) 0.3 % Normal 0.0 - 2.0 % [facility] HemeAutoSS Basophils/Leukocytes Auto (Bld) [Pure # fraction] 0.0 E9/L Normal 0.0 - 0.2 E9/L [facility] HemeAutoSS Eosinophils/100 WBC (Bld) 7.7 % Normal 0.0 - 8.0 % [facility] HemeAutoSS Eosinophils/Leukocytes Auto (Bld) [Pure # fraction] 0.4 E9/L Normal 0.0 - 0.5 E9/L [facility] HemeAutoSS Lymphocytes/100 WBC (Bld) 40.7 % Normal 14.0 - 50.0 % [facility] HemeAutoSS Lymphocytes/Leukocytes Auto (Bld) [Pure # fraction] 1.9 E9/L Normal 1.0 - 4.0 E9/L [facility] HemeAutoSS Monocytes/100 WBC (Bld) 4.4 % Normal 4.0 - 14.0 % [facility] HemeAutoSS Monocytes/Leukocytes Auto (Bld) [Pure # fraction] 0.2 E9/L Normal 0.2 - 1.0 E9/L [facility] HemeAutoSS Neutrophils/100 WBC (Bld) 46.9 % Normal 36.0 - 75.0 % [facility] HemeAutoSS Neutrophils/Leukocytes Auto (Bld) [Pure # fraction] 2.2 E9/L Normal 2.0 - 7.5 E9/L [facility] HemeAutoSS HEMATOLOGYOrdered By: Fausto Lyle on 04-05-2022 Erythrocyte distribution width (RBC) [Ratio] 14.1 % Normal 10.9 - 14.2 % [facility] HemeAutoSS Hematocrit (Bld) [Volume fraction] 41.6 % Normal 34.0 - 46.0 % [facility] HemeAutoSS Hemoglobin (Bld) [Mass/Vol] 13.8 g/dL Normal 12.0 - 16.0 gm/dL [facility] HemeAutoSS MCH (RBC) [Entitic mass] 30.9 pg Normal 27.0 - 34.0 pg [facility] HemeAutoSS MCHC (RBC) [Mass/Vol] 33.1 g/dL Normal 31.4 - 36.0 gm/dL [facility] HemeAutoSS MCV (RBC) [Entitic vol] 93.2 fL Normal 80.0 - 100.0 fL [facility] HemeAutoSS Platelet mean volume (Bld) [Entitic vol] 7.5 fL Normal 6.4 - 10.8 fL [facility] HemeAutoSS Platelets (Bld) [#/Vol] 173.0 E9/L Normal 150. 0 - 500.0 E9/L [facility] HemeAutoSS RBC (Bld) [#/Vol] 4.5 E12/L Normal 4.3 - 5.9 E12/L [facility] HemeAutoSS WBC corrected for nucl RBC Auto (Bld) [#/Vol] 4.8 E9/L Normal 4.0 - 11.0 E9/L [facility] HemeAutoSS eGFRon 04-05-2022 GFR/1.73 sq M.predicted among blacks MDRD (S/P/Bld) [Vol rate/Area] 49 mL/min/1.73 m2 Low >=59 [facility] Comment on above: Order Comment: Order added by Discern Expert. Result Comment: eGFR is race adjusted. AA=. Performed By: #### 2 458308, 8060516, 5523613, 39064643 ####[facility] [address] [place] [address] GFR/1.73 sq M.predicted among non-blacks MDRD (S/P/Bld) [Vol rate/Area] 40 mL/min/1.73 m2 Low >=59 [facility] Comment on above: Order Comment: Order added by Discern Expert. Result Comment: Cloth Mender aubrey kidney disease could be indicated at eGFR's of less than 60 mL/min/1.73m2. Kidney failure is indicated at less than 15 mL/min/1.73m2. Performed By: #### 2 174691, 7065658, 1334261, 07249715 ####[facility] [address] [place] [address] Coding Summary.on 03-29-2022 Coding Summary. Normal [facility] ONC - Otheron 03-29-2022 ONC - Other [id number]#1.00CD:1 27 Normal [facility] ONC - Other [id number]#1.00CD:1 27 Normal [facility] Comment on above: Other Comment: lorraine karrie in error Oncology Noteon 03-29-2022 Oncology Note Normal [facility] Comment on above: Result Comment: Elec tronically Signed By: Jane FARMER, Yolande Houston\.br\Date and Time Signed: 03/29/22 10:32 EST Consent for Treatmenton Consent for Treatment [id number]#1.00CD:12 7 Normal [facility] Oncology Progress Noteon Oncology Progress Note Normal Fi [facility] Auto Diffon 03-27-2022 Basophils/100 WBC (Bld) 2.8 % High 0.0-2.0 F [facility] Comment on above: Order Comment: Order Added by Discern Expert. Performed By: #### 2 805495, 2245689, 23696439, 4391626 ####[facility] [address] [place] [address] Basophils/Leukocytes Auto (Bld) [Pure # fraction] 0.2 E9/L Normal 0.0-0.2 [facility] Comment on above: Order Comment: Order Added by Discern Expert. Performed By: #### 2 530872, 3881844, 55589980, 9584612 ####[facility] [address] [place] [address] Eosinophils/100 WBC (Bld) 6.0 % Normal 0.0-8.0 [facility] Comment on above: Order Comment: Order Added by Discern Expert. Performed By: #### 2 151584, 0469000, 53741692, 5501598 ####[facility] [address] [place] [address] Eosinophils/Leukocytes Auto (Bld) [Pure # fraction] 0.3 E9/L Normal 0.0-0.5 [facility] Comment on above: Order Comment: Order Added by Discern Expert. Performed By: #### 2 603366, 6626137, 32751481, 5375451 ####[address] [address] Lymphocytes/100 WBC (Bld) 37.0 % Normal 14.0-50.0 [facility] Comment on above: Order Comment: Order Added by Discern Expert. Performed By: #### 2 073676, 1081522, 78567519, 3321197 ####[address] [address] Lymphocytes/Leukocytes Auto (Bld) [Pure # fraction] 2.0 E9/L Normal 1.0-4.0 [facility] Comment on above: Order Comment: Order Added by Discern Expert. Performed By: #### 2 631749, 8137462, 96365180, 2458761 ####[place] [place] [address] Monocytes/100 WBC (Bld) 4.7 % Normal 4.0-14.0 [facility] Comment on above: Order Comment: Order Added by Discern Expert. Performed By: #### 2 213461, 1205953, 27748189, 6131538 ####[address] [address] Monocytes/Leukocytes Auto (Bld) [Pure # fraction] 0.3 E9/L Normal 0.2-1.0 [facility] Comment on above: Order Comment: Order Added by Discern Expert. Performed By: #### 2 676444, 3369747, 75961674, 0037161 ####[facility] [address] [place] [address] Neutrophils/100 WBC (Bld) 49.5 % Normal 36.0-75.0 [facility] Comment on above: Order Comment: Order Added by Discern Expert. Performed By: #### 2 186462, 9357140, 96322938, 5054546 ####[place] [place] [address] Neutrophils/Leukocytes Auto (Bld) [Pure # fraction] 2.7 E9/L Normal 2.0-7.5 [facility] Comment on above: Order Comment: Order Added by Discern Expert. Performed By: #### 2 748634, 9589796, 41681786, 9248626 ####[address] [address] CBC w/ Auto Diffon Erythrocyte distribution width (RBC) [Ratio] 14.2 % Normal 10.9-14.2 [facility] Comment on above: Performed By: #### 2 705717, 5384496, 72112227, 0066103 ####[address] [address] Hematocrit (Bld) [Volume fraction] 42.8 % Normal 34.0-46.0 [facility] Comment on above: Performed By: #### 2 537838, 3141824, 82809965, 8408450 ####[address] [address] Hemoglobin (Bld) [Mass/Vol] 14.5 g/dL Normal 12.0-16.0 [facility] Comment on above: Performed By: #### 2 930915, 5393540, 07441399, 1365284 ####[address] [address] MCH (RBC) [Entitic mass] 31.2 pg Normal 27.0-34.0 [facility] Comment on above: Performed By: #### 2 621824, 0931697, 28874528, 9926763 ####[address] [address] MCHC (RBC) [Mass/Vol] 33.9 g/dL Normal 31.4-36.0 [facility] Comment on above: Performed By: #### 2 968998, 6240758, 87800599, 1791502 ####[address] [address] MCV (RBC) [Entitic vol] 92.0 fL Normal 80.0-100.0 F [facility] Comment on above: Performed By: #### 2 825842, 0591784, 87050590, 7246010 ####[address] [address] Platelet mean volume (Bld) [Entitic vol] 7.1 fL Normal 6.4-10.8 [facility] Comment on above: Performed By: #### 2 119064, 9198500, 32702632, 5092408 ####[address] [address] Platelets (Bld) [#/Vol] 234.0 E9/L Normal 150. 0-500. 0 [facility] Comment on above: Performed By: #### 2 773017, 5397311, 61929925, 1178307 ####[address] [address] RBC (Bld) [#/Vol] 4.6 E12/L Normal 4.3-5.9 [facility] Comment on above: Performed By: #### 2 363771, 8973167, 98439818, 6818109 ####[address] [address] WBC corrected for nucl RBC Auto (Bld) [#/Vol] 5.4 E9/L Normal 4.0-11.0 [facility] Comment on above: Performed By: #### 2 679844, 9134874, 14791860, 9236419 ####[address] [address] CMPon 03-27-2022 Albumin [Mass/Vol] 3.7 g/dL Normal 3.3-5.0 [facility] Comment on above: Performed By: #### 2 222302, 1098723, 52578551, 2434630 ####[facility] [address] [place] [address] Albumin/Globulin (S) [Mass conc ratio] 1.1 Normal 1.1-2.2 [facility] Comment on above: Performed By: #### 2 028869, 9647412, 61794929, 4278883 ####[facility] [address] [place] [address] ALP [Catalytic activity/Vol] 78 Int._Unit/L Normal 21-98 [facility] Comment on above: Performed By: #### 2 117581, 2615187, 36218072, 2321680 ####[facility] [address] [place] [address] ALT No additional P-5'-P [Catalytic activity/Vol] 17 Int._Unit/L Normal 6-46 [facility] Comment on above: Performed By: #### 2 171383, 8921811, 29353244, 4635844 ####[facility] [address] [place] [address] Anion gap [Moles/Vol] 13 mmol/L Normal 6-16 [facility] Comment on above: Performed By: #### 2 554927, 5907565, 97168366, 5784882 ####[facility] [address] [place] [address] AST [Catalytic activity/Vol] 17 Int._Unit/L Normal 5-43 [facility] Comment on above: Performed By: #### 2 866517, 9387707, 72405503, 0420356 ####[facility] [address] [place] [address] Bilirubin [Mass/Vol] 0.5 mg/dL Normal 0.0-1.1 [facility] Comment on above: Performed By: #### 2 541033, 6081113, 78605937, 4250176 ####[facility] [address] [place] [address] Calcium [Mass/Vol] 8.8 mg/dL Low 8.9-11.1 [facility] Comment on above: Performed By: #### 2 465649, 8657694, 66174435, 3678193 ####[facility] [address] [place] [address] Chloride [Moles/Vol] 106 mmol/L Normal 101-111 [facility] Comment on above: Performed By: #### 2 455265, 0827025, 82622643, 5677032 ####[facility] [address] [place] [address] CO2 [Moles/Vol] 24 mmol/L Normal 21-31 [facility] Comment on above: Performed By: #### 2 342576, 3076206, 57347904, 3546181 ####[facility] [address] [place] [address] Creatinine [Mass/Vol] 1.4 mg/dL High 0.5-1.3 [facility] Comment on above: Performed By: #### 2 054864, 1835940, 98982793, 6644137 ####[facility] [address] [place] [address] Globulin (S) [Mass/Vol] 3.3 g/dL Normal 1.4-4.0 F [facility] Comment on above: Performed By: #### 2 554145, 1755209, 95807755, 0033337 ####[facility] [address] [place] [address] Glucose [Mass/Vol] 128 mg/dL Normal 55-199 [facility] Comment on above: Result Comment: If t his glucose result represents a fasting glucose, interpretation should refer to the following reference range: 55-99 mg/dL Performed By: #### 2 652875, 8138419, 13713800, 3665213 ####[facility] [address] [place] [address] Potassium [Moles/Vol] 4.5 mmol/L Normal 3.5-5.3 [facility] Comment on above: Performed By: #### 2 173697, 7145443, 85226705, 2804492 ####[facility] [address] [place] [address] Protein [Mass/Vol] 7.0 g/dL Normal 6.0-7.8 [facility] Comment on above: Performed By: #### 2 471199, 4899136, 84416813, 7983885 ####[facility] [address] [place] [address] Sodium [Moles/Vol] 138 mmol/L Normal 135-145 [facility] Comment on above: Performed By: #### 2 756513, 7972677, 64617727, 3402070 ####[facility] [address] [place] [address] Urea nitrogen [Mass/Vol] 32 mg/dL High 5-21 [facility] Comment on above: Performed By: #### 2 640258, 4600518, 51160548, 9674360 ####[facility] [address] [place] [address] Urea nitrogen/Creatinine [Mass ratio] 23 No Units High 10-20 [facility] Comment on above: Performed By: #### 2 924021, 2168008, 22558751, 9819456 ####[facility] [address] [place] [address] eGFRon 03-27-2022 GFR/1.73 sq M.predicted among blacks MDRD (S/P/Bld) [Vol rate/Area] 45 mL/min/1.73 m2 Low >=59 [facility] Comment on above: Order Comment: Order added by Discern Expert. Result Comment: eGFR is race adjusted. AA=. Performed By: #### 2 879458, 4666881, 08389770, 1521625 ####[facility] [address] [place] [address] GFR/1.73 sq M.predicted among non-blacks MDRD (S/P/Bld) [Vol rate/Area] 37 mL/min/1.73 m2 Low >=59 [facility] Comment on above: Order Comment: Order added by Discern Expert. Result Comment: Cloth Mender aubrey kidney disease could be indicated at eGFR's of less than 60 mL/min/1.73m2. Kidney failure is indicated at less than 15 mL/min/1.73m2. Performed By: #### 2 540833, 0056107, 03546390, 5114002 ####[facility] [address] [place] [address] Coding Summary.on 03-22-2022 Coding Summary. Normal [facility] ONC - Otheron 03-22-2022 ONC - Other [id number]#1.00CD:1 27 Normal [facility] NM PET w/ CT Scan Skull Base to Midthighon 03-20-2022 NM PET w/ CT Scan Skull Base to Midthigh Normal [facility] Oncology Noteon 03-19-2022 Oncology Note Normal [facility] Comment on above: Result Comment: Elec tronically Signed By: Magda FARMER, Annia\.br\Date and Time Signed: 03/19/22 14:11 EST RAD - MISCon 03-19-2022 RAD - MISC [id number]#1.00CD:127 Normal [facility] Consent for Treatmenton 02-21 Consent for Treatment [id number]#1.00CD:12 7 Normal [facility] Physician Orderon 03-14-2022 Physician Order [id number]#1.00CD:12 7 Normal [facility] ONC - Otheron 03-12-2022 ONC - Other [id number]#1.00CD:12 7 Normal [facility] Oncology Noteon 03-12-2022 Oncology Note Normal [facility] Comment on above: Result Comment: Elec tronically Signed By: Jane FARMER, Yolande Houston\.br\Date and Time Signed: 03/12/22 13:46 EST Oncology Note Normal [facility] Comment on above: Result Comment: Elec tronically Signed By: Jane FARMER, Yolande Grande.johnnie\Date and Time Signed: 03/12/22 12:10 EST Auto Diffon 03-08-2022 Basophils/100 WBC (Bld) 1.7 % Normal 0.0-2.0 F [facility] Comment on above: Order Comment: Order Added by Discern Expert. Performed By: #### 2 050206, 3114730, 2910402, 20424445 ####[facility] [address] [place] [address] Basophils/Leukocytes Auto (Bld) [Pure # fraction] 0.1 E9/L Normal 0.0-0.2 [facility] Comment on above: Order Comment: Order Added by Discern Expert. Performed By: #### 2 328002, 0020346, 0394228, 89983327 ####[facility] [address] [place] [address] Eosinophils/100 WBC (Bld) 5.4 % Normal 0.0-8.0 [facility] Comment on above: Order Comment: Order Added by Faviola Expert. Performed By: #### 2 800547, 8790172, 1693526, [id number] ####[facility] [address] [place] [address] Eosinophils/Leukocytes Auto (Bld) [Pure # fraction] 0.3 E9/L Normal 0.0-0.5 [facility] Comment on above: Order Comment: Order Added by Discern Expert. Performed By: #### 2 848561, 5590819, 2439463, 11453077 ####[facility] [address] [place] [address] Lymphocytes/100 WBC (Bld) 46.4 % Normal 14.0-50.0 [facility] Comment on above: Order Comment: Order Added by Faviola Expert. Performed By: #### 2 585857, 0788483, 8228418, 43659166 ####[facility] [address] [place] [address] Lymphocytes/Leukocytes Auto (Bld) [Pure # fraction] 2.5 E9/L Normal 1.0-4.0 [facility] Comment on above: Order Comment: Order Added by Discern Expert. Performed By: #### 2 696366, 3683457, 1285509, 68348780 ####[address] [place] [address] Monocytes/100 WBC (Bld) 5.6 % Normal 4.0-14.0 [facility] Comment on above: Order Comment: Order Added by Discern Expert. Performed By: #### 2 616240, 9161585, 1728932, 23546817 ####[address] [address] Monocytes/Leukocytes Auto (Bld) [Pure # fraction] 0.3 E9/L Normal 0.2-1.0 [facility] Comment on above: Order Comment: Order Added by Discern Expert. Performed By: #### 2 458572, 7546511, 6564599, 88477301 ####[address] [address] Neutrophils/100 WBC (Bld) 40.9 % Normal 36.0-75.0 [facility] Comment on above: Order Comment: Order Added by Discern Expert. Performed By: #### 2 185020, 2755504, 8748093, 02947839 ####[address] [address] Neutrophils/Leukocytes Auto (Bld) [Pure # fraction] 2.2 E9/L Normal 2.0-7.5 [facility] Comment on above: Order Comment: Order Added by Discern Expert. Performed By: #### 2 861058, 3000973, 9615568, 68423920 ####[address] [place] [address] CBC w/ Auto Diffon 2 Erythrocyte distribution width (RBC) [Ratio] 14.3 % High 10.9-14.2 [facility] Comment on above: Performed By: #### 2 465336, 7659370, 7582397, 85061225 ####[address] [address] Hematocrit (Bld) [Volume fraction] 40.3 % Normal 34.0-46.0 [facility] Comment on above: Performed By: #### 2 605604, 6419972, 2075038, 93911889 ####[address] [address] Hemoglobin (Bld) [Mass/Vol] 13.9 g/dL Normal 12.0-16.0 [facility] Comment on above: Performed By: #### 2 562255, 8481409, 1231924, 05972347 ####[address] [address] MCH (RBC) [Entitic mass] 31.7 pg Normal 27.0-34.0 [facility] Comment on above: Performed By: #### 2 457011, 3324259, 9981980, 77619962 ####[address] [address] MCHC (RBC) [Mass/Vol] 34.5 g/dL Normal 31.4-36.0 [facility] Comment on above: Performed By: #### 2 716712, 8301431, 0470373, 18854608 ####[address] [address] MCV (RBC) [Entitic vol] 91.7 fL Normal 80.0-100.0 F [facility] Comment on above: Performed By: #### 2 715965, 4685739, 2846231, 51937887 ####[address] [address] Platelet mean volume (Bld) [Entitic vol] 7.3 fL Normal 6.4-10.8 [facility] Comment on above: Performed By: #### 2 421867, 7476687, 5977628, 68101337 ####[address] [place] [address] Platelets (Bld) [#/Vol] 164.0 E9/L Normal 150. 0-500. 0 [facility] Comment on above: Performed By: #### 2 897804, 3464926, 4241688, 77750620 ####[address] [address] RBC (Bld) [#/Vol] 4.4 E12/L Normal 4.3-5.9 [facility] Comment on above: Performed By: #### 2 242496, 9873515, 3035169, 65061855 ####[address] [address] WBC corrected for nucl RBC Auto (Bld) [#/Vol] 5.4 E9/L Normal 4.0-11.0 [facility] Comment on above: Performed By: #### 2 571086, 6722750, 3316422, 14975390 ####[address] [address] CMPon 03-08-2022 Albumin [Mass/Vol] 3.7 g/dL Normal 3.3-5.0 [facility] Comment on above: Performed By: #### 2 431623, 3729757, 8038505, 89922931 ####[address] [address] Albumin/Globulin (S) [Mass conc ratio] 1.2 Normal 1.1-2.2 [facility] Comment on above: Performed By: #### 2 295975, 7056088, 5284364, 90883519 ####[address] [address] ALP [Catalytic activity/Vol] 70 Int._Unit/L Normal 21-98 [facility] Comment on above: Performed By: #### 2 534339, 8817437, 2818786, 68121339 ####[address] [address] ALT No additional P-5'-P [Catalytic activity/Vol] 17 Int._Unit/L Normal 6-46 [facility] Comment on above: Performed By: #### 2 845673, 9220584, 6691166, 71588428 ####[facility] [address] [place] [address] Anion gap [Moles/Vol] 11 mmol/L Normal 6-16 [facility] Comment on above: Performed By: #### 2 492751, 0825890, 8117265, 62380288 ####[facility] [address] [place] [address] AST [Catalytic activity/Vol] 17 Int._Unit/L Normal 5-43 [facility] Comment on above: Performed By: #### 2 500155, 8646978, 2131360, 06405297 ####[facility] [address] [place] [address] Bilirubin [Mass/Vol] 0.9 mg/dL Normal 0.0-1.1 [facility] Comment on above: Performed By: #### 2 130939, 3684265, 8014491, 43376412 ####[facility] [address] [place] [address] Calcium [Mass/Vol] 9.0 mg/dL Normal 8.9-11.1 [facility] Comment on above: Performed By: #### 2 694649, 1516149, 0462468, 34376605 ####[facility] [address] [place] [address] Chloride [Moles/Vol] 107 mmol/L Normal 101-111 [facility] Comment on above: Performed By: #### 2 808339, 3879687, 6863589, 55608473 ####[facility] [address] [place] [address] CO2 [Moles/Vol] 24 mmol/L Normal 21-31 [facility] Comment on above: Performed By: #### 2 652474, 9237668, 5366865, 57338246 ####[facility] [place] [address] Creatinine [Mass/Vol] 1.2 mg/dL Normal 0.5-1.3 [facility] Comment on above: Performed By: #### 2 666718, 5725207, 1640849, 19205689 ####[facility] [address] [place] [address] Globulin (S) [Mass/Vol] 3.2 g/dL Normal 1.4-4.0 [facility] Comment on above: Performed By: #### 2 242034, 2964589, 6454695, 55900670 ####[facility] [address] [place] [address] Glucose [Mass/Vol] 127 mg/dL Normal 55-199 [facility] Comment on above: Result Comment: If t his glucose result represents a fasting glucose, interpretation should refer to the following reference range: 55-99 mg/dL Performed By: #### 2 601512, 6348553, 6042674, 14390689 ####[facility] [address] [place] [address] Potassium [Moles/Vol] 4.0 mmol/L Normal 3.5-5.3 [facility] Comment on above: Performed By: #### 2 012221, 2938390, 7286033, 87207398 ####[facility] [address] [place] [address] Protein [Mass/Vol] 6.9 g/dL Normal 6.0-7.8 [facility] Comment on above: Performed By: #### 2 782276, 9489168, 2853494, 28677155 ####[facility] [address] [place] [address] Sodium [Moles/Vol] 138 mmol/L Normal 135-145 [facility] Comment on above: Performed By: #### 2 083817, 0609904, 6711679, 60445774 ####[facility] [address] [place] [address] Urea nitrogen [Mass/Vol] 28 mg/dL High 5-21 [facility] Comment on above: Performed By: #### 2 160953, 3649534, 3017116, 37214343 ####[facility] [address] [place] [address] Urea nitrogen/Creatinine [Mass ratio] 23 No Units High 10-20 [facility] Comment on above: Performed By: #### 2 298974, 7674417, 4429120, 77448809 ####[facility] [address] [place] [address] eGFRon 03-08-2022 GFR/1.73 sq M.predicted among blacks MDRD (S/P/Bld) [Vol rate/Area] 54 mL/min/1.73 m2 Low >=59 [facility] Comment on above: Order Comment: Order added by Discern Expert. Result Comment: eGFR is race adjusted. AA=. Performed By: #### 2 294157, 5802947, 4182321, 75511541 ####[facility] [address] [place] [address] GFR/1.73 sq M.predicted among non-blacks MDRD (S/P/Bld) [Vol rate/Area] 44 mL/min/1.73 m2 Low >=59 [facility] Comment on above: Order Comment: Order added by Discern Expert. Result Comment: Cloth Mender aubrey kidney disease could be indicated at eGFR's of less than 60 mL/min/1.73m2. Kidney failure is indicated at less than 15 mL/min/1.73m2. Performed By: #### 2 577529, 3486624, 9864841, 09259540 ####[facility] [address] [place] [address] Oncology Noteon 03-05-2022 Oncology Note Normal [facility] Comment on above: Result Comment: Elec tronically Signed By: Magda FARMER, Annia\.br\Date and Time Signed: 03/05/22 11:46 EST Oncology Noteon 03-02-2022 Oncology Note Normal [facility] Comment on above: Result Comment: Elec tronically Signed By: Annia Man RN\.br\Date and Time Signed: 03/02/22 10:10 EST ONC - Otheron 03-01-2022 ONC - Other [id number]:1 27 Normal [facility] Oncology Noteon 02-19-2022 Oncology Note Normal [facility] Comment on above: Result Comment: Elec tronically Signed By: Annia Man RN\.br\Date and Time Signed: 02/19/22 10:53 EDT Auto Diffon 02-12-2022 Basophils/100 WBC (Bld) 1.8 % Normal 0.0-2.0 F [facility] Comment on above: Order Comment: Order Added by Discern Expert. Performed By: #### 2 708759, 86852555, 7925035, 5498953 ####[facility] [address] [place] [address] Basophils/Leukocytes Auto (Bld) [Pure # fraction] 0.1 E9/L Normal 0.0-0.2 [facility] Comment on above: Order Comment: Order Added by Discern Expert. Performed By: #### 2 501301, 57678272, 2656758, 2686052 ####[facility] [address] [place] [address] Eosinophils/100 WBC (Bld) 3.0 % Normal 0.0-8.0 [facility] Comment on above: Order Comment: Order Added by Discern Expert. Performed By: #### 2 656635, 07660080, 8408389, 2127081 ####[facility] [address] [place] [address] Eosinophils/Leukocytes Auto (Bld) [Pure # fraction] 0.2 E9/L Normal 0.0-0.5 [facility] Comment on above: Order Comment: Order Added by Discern Expert. Performed By: #### 2 654733, 75185087, 1868189, 6493088 ####[facility] [address] [place] [address] Lymphocytes/100 WBC (Bld) 43.7 % Normal 14.0-50.0 [facility] Comment on above: Order Comment: Order Added by Discern Expert. Performed By: #### 2 739671, 19974801, 6082005, 6938072 ####[address] [place] [address] Lymphocytes/Leukocytes Auto (Bld) [Pure # fraction] 2.5 E9/L Normal 1.0-4.0 [facility] Comment on above: Order Comment: Order Added by Discern Expert. Performed By: #### 2 142900, 69780275, 0497121, 0081989 ####[address] [place] [address] Monocytes/100 WBC (Bld) 8.1 % Normal 4.0-14.0 [facility] Comment on above: Order Comment: Order Added by Faviola Expert. Performed By: #### 2 905265, 66398035, 7790669, 9131468 ####[address] [address] Monocytes/Leukocytes Auto (Bld) [Pure # fraction] 0.5 E9/L Normal 0.2-1.0 [facility] Comment on above: Order Comment: Order Added by Faviola Expert. Performed By: #### 2 325369, 07359749, 7913550, 7497925 ####[address] [address] Neutrophils/100 WBC (Bld) 43.4 % Normal 36.0-75.0 [facility] Comment on above: Order Comment: Order Added by Faviola Expert. Performed By: #### 2 156371, 55597529, 7705027, 6184242 ####[address] [place] [address] Neutrophils/Leukocytes Auto (Bld) [Pure # fraction] 2.5 E9/L Normal 2.0-7.5 [facility] Comment on above: Order Comment: Order Added by Faviola Expert. Performed By: #### 2 393989, 08908143, 1134599, 8371635 ####[facility] [address] [place] [address] CBC w/ Auto Diffon Erythrocyte distribution width (RBC) [Ratio] 14.1 % Normal 10.9-14.2 [facility] Comment on above: Performed By: #### 2 019780, 54471277, 5124788, 2144535 ####[address] [place] [address] Hematocrit (Bld) [Volume fraction] 40.5 % Normal 34.0-46.0 [facility] Comment on above: Performed By: #### 2 352325, 85592159, 2484492, 7035769 ####[address] [address] Hemoglobin (Bld) [Mass/Vol] 13.6 g/dL Normal 12.0-16.0 [facility] Comment on above: Performed By: #### 2 753726, 88916669, 6926882, 1659676 ####[address] [address] MCH (RBC) [Entitic mass] 32.4 pg Normal 27.0-34.0 [facility] Comment on above: Performed By: #### 2 777372, 24748510, 4506805, 5927342 ####[address] [address] MCHC (RBC) [Mass/Vol] 33.7 g/dL Normal 31.4-36.0 [facility] Comment on above: Performed By: #### 2 735361, 47649317, 9253077, 1463537 ####[address] [address] MCV (RBC) [Entitic vol] 96.1 fL Normal 80.0-100.0 F [facility] Comment on above: Performed By: #### 2 870902, 22098888, 3490952, 6678875 ####[address] [address] Platelet mean volume (Bld) [Entitic vol] 7.3 fL Normal 6.4-10.8 [facility] Comment on above: Performed By: #### 2 209869, 14063773, 6186942, 6015976 ####[address] [address] Platelets (Bld) [#/Vol] 176.0 E9/L Normal 150. 0-500. 0 [facility] Comment on above: Performed By: #### 2 119394, 53587721, 6258599, 6685845 ####[address] [address] RBC (Bld) [#/Vol] 4.2 E12/L Low 4.3-5.9 [facility] Comment on above: Performed By: #### 2 832224, 47174679, 6603373, 0067343 ####[address] [address] WBC corrected for nucl RBC Auto (Bld) [#/Vol] 5.7 E9/L Normal 4.0-11.0 [facility] Comment on above: Performed By: #### 2 831342, 51676649, 1297301, 2642468 ####[address] [address] CMPon 02-12-2022 Albumin [Mass/Vol] 3.5 g/dL Normal 3.3-5.0 [facility] Comment on above: Performed By: #### 2 030877, 14632931, 5000946, 1637060 ####[address] [address] Albumin/Globulin (S) [Mass conc ratio] 1.0 Low 1.1-2.2 [facility] Comment on above: Performed By: #### 2 626638, 83028365, 9187326, 5088355 ####[address] [address] ALP [Catalytic activity/Vol] 86 Int._Unit/L Normal 21-98 [facility] Comment on above: Performed By: #### 2 591901, 53703253, 3811121, 7629078 ####[facility] [address] [place] [address] ALT No additional P-5'-P [Catalytic activity/Vol] 24 Int._Unit/L Normal 6-46 [facility] Comment on above: Performed By: #### 2 396689, 17049123, 7069415, 3886276 ####[facility] [address] [place] [address] Anion gap [Moles/Vol] 13 mmol/L Normal 6-16 [facility] Comment on above: Performed By: #### 2 588694, 74124675, 1376276, 4075608 ####[facility] [address] [place] [address] AST [Catalytic activity/Vol] 20 Int._Unit/L Normal 5-43 [facility] Comment on above: Performed By: #### 2 368993, 14348928, 5207510, 9789939 ####[facility] [address] [place] [address] Bilirubin [Mass/Vol] 0.8 mg/dL Normal 0.0-1.1 [facility] Comment on above: Performed By: #### 2 206445, 47865304, 7001190, 1211451 ####[facility] [address] [place] [address] Calcium [Mass/Vol] 9.2 mg/dL Normal 8.9-11.1 [facility] Comment on above: Performed By: #### 2 719198, 83070175, 7800729, 3000278 ####[facility] [address] [place] [address] Chloride [Moles/Vol] 106 mmol/L Normal 101-111 [facility] Comment on above: Performed By: #### 2 605238, 76946444, 3537823, 2427904 ####[facility] [address] [place] [address] CO2 [Moles/Vol] 23 mmol/L Normal 21-31 [facility] Comment on above: Performed By: #### 2 412480, 81323796, 3177094, 8208397 ####[facility] [address] [place] [address] Creatinine [Mass/Vol] 1.1 mg/dL Normal 0.5-1.3 [facility] Comment on above: Performed By: #### 2 802397, 11715805, 4625333, 1859661 ####[facility] [address] [place] [address] Globulin (S) [Mass/Vol] 3.4 g/dL Normal 1.4-4.0 [facility] Comment on above: Performed By: #### 2 350803, 37971871, 5666577, 7659171 ####[facility] [address] [place] [address] Glucose [Mass/Vol] 135 mg/dL Normal 55-199 [facility] Comment on above: Result Comment: If t his glucose result represents a fasting glucose, interpretation should refer to the following reference range: 55-99 mg/dL Performed By: #### 2 270297, 80759567, 3724259, 4578237 ####[facility] [address] [place] [address] Potassium [Moles/Vol] 4.2 mmol/L Normal 3.5-5.3 [facility] Comment on above: Performed By: #### 2 276632, 59038579, 4622593, 8829312 ####[facility] [address] [place] [address] Protein [Mass/Vol] 6.9 g/dL Normal 6.0-7.8 [facility] Comment on above: Performed By: #### 2 749327, 62109537, 0305033, 8544601 ####[facility] [address] [place] [address] Sodium [Moles/Vol] 138 mmol/L Normal 135-145 [facility] Comment on above: Performed By: #### 2 051483, 87966488, 3247216, 9899648 ####[facility] [address] [place] [address] Urea nitrogen [Mass/Vol] 33 mg/dL High 5-21 [facility] Comment on above: Performed By: #### 2 222587, 89589058, 9390633, 7345914 ####[facility] [address] [place] [address] Urea nitrogen/Creatinine [Mass ratio] 30 No Units High 10-20 [facility] Comment on above: Performed By: #### 2 195408, 70039644, 0762020, 0155930 ####[facility] [address] [place] [address] eGFRon 02-12-2022 GFR/1.73 sq M.predicted among blacks MDRD (S/P/Bld) [Vol rate/Area] 59 mL/min/1.73 m2 Normal >=59 [facility] Comment on above: Order Comment: Order added by Discern Expert. Result Comment: eGFR is race adjusted. AA=. Performed By: #### 2 458997, 64068499, 3194197, 8657591 ####[facility] [address] [place] [address] GFR/1.73 sq M.predicted among non-blacks MDRD (S/P/Bld) [Vol rate/Area] 49 mL/min/1.73 m2 Low >=59 [facility] Comment on above: Order Comment: Order added by Discern Expert. Result Comment: Cloth Mender aubrey kidney disease could be indicated at eGFR's of less than 60 mL/min/1.73m2. Kidney failure is indicated at less than 15 mL/min/1.73m2. Performed By: #### 2 904926, 63356142, 6971518, 5076063 ####[facility] [address] [place] [address] CHEMISTRYOrdered By: SYSTEM SYSTEM on 12-26-2021 Albumin [Mass/Vol] 3.7 g/dL Normal 3.3 - 5.0 gm/dL [facility] Albumin/Globulin [Mass ratio] 1.1 {ratio} Normal 1.1 - 2.2 [facility] ALP [Catalytic activity/Vol] 79 [iU]/d Normal 21 - 98 Int._Unit/ L [facility] ALT No additional P-5'-P [Catalytic activity/Vol] 14 [iU]/d Normal 6 - 46 Int._Unit/ L [facility] Anion gap [Moles/Vol] 13 mmol/L Normal 6 - 16 mEq/L [facility] AST [Catalytic activity/Vol] 17 [iU]/d Normal 5 - 43 Int._Unit/ L [facility] Bilirubin [Mass/Vol] 0.7 mg/dL Normal 0.0 - 1 .1 mg/dL [facility] Calcium [Mass/Vol] 9.0 mg/dL Normal 8.9 - 11. 1 mg/dL [facility] Chloride [Moles/Vol] 106 mmol/L Normal 101 - 1 11 mmol/L [facility] CO2 [Moles/Vol] 22 mmol/L Normal 21 - 31 mmol/L [facility] Creatinine [Mass/Vol] 1.6 mg/dL High 0.5 - 1.3 mg/dL [facility] GFR/1.73 sq M.predicted among blacks MDRD (S/P/Bld) [Vol rate/Area] 38 mL/min/1.73 m2 Low >=59mL/min /1.73 m2 [facility] Chem S GFR/1.73 sq M.predicted among non-blacks MDRD (S/P/Bld) [Vol rate/Area] 32 mL/min/1.73 m2 Low >=59mL/min /1.73 m2 FT Chem S Globulin (S) [Mass/Vol] 3.5 g/dL Normal 1.4 - 4.0 gm/dL [facility] Glucose [Mass/Vol] 222 mg/dL High 55 - 199 mg/dL [facility] Potassium [Moles/Vol] 4.5 mmol/L Normal 3.5 - 5.3 mmol/L [facility] Protein [Mass/Vol] 7.2 g/dL Normal 6.0 - 7.8 gm/dL [facility] Sodium [Moles/Vol] 136 mmol/L Normal 135 - 145 mmol/L [facility] Urea nitrogen [Mass/Vol] 30 mg/dL High 5 - 21 mg/dL [facility] Urea nitrogen/Creatinine [Mass ratio] 19 mg/mg Normal 10 - 20 [facility] HEMATOLOGYOrdered By: SYSTEM SYSTEM on 12-26-2021 Basophils/100 WBC (Bld) 3.1 % High 0.0 - 2.0 % [facility] HemeAutoSS Basophils/Leukocytes Auto (Bld) [Pure # fraction] 0.2 E9/L Normal 0.0 - 0.2 E9/L [facility] HemeAutoSS Eosinophils/100 WBC (Bld) 3.1 % Normal 0.0 - 8.0 % [facility]eAutoSS Eosinophils/Leukocytes Auto (Bld) [Pure # fraction] 0.2 E9/L Normal 0.0 - 0.5 E9/L [facility] HemeAutoSS Lymphocytes/100 WBC (Bld) 21.4 % Normal 14.0 - 50.0 % [facility] HemeAutoSS Lymphocytes/Leukocytes Auto (Bld) [Pure # fraction] 1.4 E9/L Normal 1.0 - 4.0 E9/L [facility] HemeAutoSS Monocytes/100 WBC (Bld) 5.5 % Normal 4.0 - 14.0 % [facility] HemeAutoSS Monocytes/Leukocytes Auto (Bld) [Pure # fraction] 0.4 E9/L Normal 0.2 - 1.0 E9/L [facility] HemeAutoSS Neutrophils/100 WBC (Bld) 66.9 % Normal 36.0 - 75.0 % [facility] HemeAutoSS Neutrophils/Leukocytes Auto (Bld) [Pure # fraction] 4.4 E9/L Normal 2.0 - 7.5 E9/L [facility] HemeAutoSS HEMATOLOGYOrdered By: Fausto Lyle on 12-26-2021 Erythrocyte distribution width (RBC) [Ratio] 15.1 % High 10.9 - 14.2 % [facility]eAutoSS Hematocrit (Bld) [Volume fraction] 39.8 % Normal 34.0 - 46.0 % [facility]eAutoSS Hemoglobin (Bld) [Mass/Vol] 13.3 g/dL Normal 12.0 - 16.0 gm/dL [facility] HemeAutoSS MCH (RBC) [Entitic mass] 33.9 pg Normal 27.0 - 34.0 pg [facility] HemeAutoSS MCHC (RBC) [Mass/Vol] 33.4 g/dL Normal 31.4 - 36.0 gm/dL [facility] HemeAutoSS MCV (RBC) [Entitic vol] 101.6 fL High 80.0 - 100.0 fL [facility] HemeAutoSS Platelet mean volume (Bld) [Entitic vol] 7.8 fL Normal 6.4 - 10.8 fL [facility] HemeAutoSS Platelets (Bld) [#/Vol] 267.0 E9/L Normal 150. 0 - 500.0 E9/L [facility] HemeAutoSS RBC (Bld) [#/Vol] 3.9 E12/L Low 4.3 - 5.9 E12/L [facility] HemeAutoSS WBC corrected for nucl RBC Auto (Bld) [#/Vol] 6.7 E9/L Normal 4.0 - 11.0 E9/L [facility] HemeAutoSS CHEMISTRYOrdered By: SYSTEM SYSTEM on 11-27-2021 Albumin [Mass/Vol] 3.6 g/dL Normal 3.3 - 5.0 gm/dL [facility] Albumin/Globulin [Mass ratio] 1.1 {ratio} Normal 1.1 - 2.2 [facility] ALP [Catalytic activity/Vol] 103 [iU]/d High 21 - 98 Int._Unit/ L [facility] ALT No additional P-5'-P [Catalytic activity/Vol] 16 [iU]/d Normal 6 - 46 Int._Unit/ L [facility] Anion gap [Moles/Vol] 13 mmol/L Normal 6 - 16 mEq/L [facility] AST [Catalytic activity/Vol] 16 [iU]/d Normal 5 - 43 Int._Unit/ L [facility] Bilirubin [Mass/Vol] 1.0 mg/dL Normal 0.0 - 1 .1 mg/dL [facility] Calcium [Mass/Vol] 8.9 mg/dL Normal 8.9 - 11. 1 mg/dL [facility] Chloride [Moles/Vol] 106 mmol/L Normal 101 - 1 11 mmol/L [facility] CO2 [Moles/Vol] 21 mmol/L Normal 21 - 31 mmol/L [facility] Creatinine [Mass/Vol] 2.4 mg/dL High 0.5 - 1.3 mg/dL [facility] GFR/1.73 sq M.predicted among blacks MDRD (S/P/Bld) [Vol rate/Area] 24 mL/min/1.73 m2 Low >=59mL/min /1.73 m2 [facility] Chem S GFR/1.73 sq M.predicted among non-blacks MDRD (S/P/Bld) [Vol rate/Area] 20 mL/min/1.73 m2 Low >=59mL/min /1.73 m2 [facility] S Globulin (S) [Mass/Vol] 3.2 g/dL Normal 1.4 - 4.0 gm/dL [facility] Glucose [Mass/Vol] 136 mg/dL Normal 55 - 199 mg/dL [facility] Potassium [Moles/Vol] 4.4 mmol/L Normal 3.5 - 5.3 mmol/L [facility] Protein [Mass/Vol] 6.8 g/dL Normal 6.0 - 7.8 gm/dL [facility] Sodium [Moles/Vol] 136 mmol/L Normal 135 - 145 mmol/L [facility] Urea nitrogen [Mass/Vol] 41 mg/dL High 5 - 21 mg/dL [facility] Urea nitrogen/Creatinine [Mass ratio] 17 mg/mg Normal 10 - 20 [facility] HEMATOLOGYOrdered By: SYSTEM SYSTEM on 11-27-2021 Basophils/100 WBC (Bld) 3.6 % High 0.0 - 2.0 % [facility] Basophils/Leukocytes Auto (Bld) [Pure # fraction] 0.2 E9/L Normal 0.0 - 0.2 E9/L [facility] Eosinophils/100 WBC (Bld) 1.7 % Normal 0.0 - 8.0 % [facility] Eosinophils/Leukocytes Auto (Bld) [Pure # fraction] 0.1 E9/L Normal 0.0 - 0.5 E9/L [facility] Lymphocytes/100 WBC (Bld) 22.2 % Normal 14.0 - 50.0 % [facility] Lymphocytes/Leukocytes Auto (Bld) [Pure # fraction] 1.0 E9/L Normal 1.0 - 4.0 E9/L [facility] Monocytes/100 WBC (Bld) 5.2 % Normal 4.0 - 14.0 % [facility] Monocytes/Leukocytes Auto (Bld) [Pure # fraction] 0.2 E9/L Normal 0.2 - 1.0 E9/L [facility] Neutrophils/100 WBC (Bld) 67.3 % Normal 36.0 - 75.0 % [facility] Neutrophils/Leukocytes Auto (Bld) [Pure # fraction] 3.2 E9/L Normal 2.0 - 7.5 E9/L [facility] HEMATOLOGYOrdered By: Helen sloan on 11-27-2021 Erythrocyte distribution width (RBC) [Ratio] 19.9 % High 10.9 - 14.2 % [facility] Hematocrit (Bld) [Volume fraction] 35.7 % Normal 34.0 - 46.0 % [facility] Hemoglobin (Bld) [Mass/Vol] 12.3 g/dL Normal 12.0 - 16.0 gm/dL [facility] MCH (RBC) [Entitic mass] 34.7 pg High 27.0 - 34.0 pg [facility] MCHC (RBC) [Mass/Vol] 34.5 g/dL Normal 31.4 - 36.0 gm/dL [facility] MCV (RBC) [Entitic vol] 100.3 fL High 80.0 - 100.0 fL [facility] Platelet mean volume (Bld) [Entitic vol] 6.9 fL Normal 6.4 - 10.8 fL [facility] Platelets (Bld) [#/Vol] 464.0 E9/L Normal 150. 0 - 500.0 E9/L [facility] RBC (Bld) [#/Vol] 3.6 E12/L Low 4.3 - 5.9 E12/L [facility] WBC corrected for nucl RBC Auto (Bld) [#/Vol] 4.7 E9/L Normal 4.0 - 11.0 E9/L [facility] CHEMISTRYOrdered By: SYSTEM SYSTEM on 11-01-2021 Albumin [Mass/Vol] 3.7 g/dL Normal 3.3 - 5.0 gm/dL [facility] Albumin/Globulin [Mass ratio] 1.2 {ratio} Normal 1.1 - 2.2 [facility] ALP [Catalytic activity/Vol] 79 [iU]/d Normal 21 - 98 Int._Unit/ L [facility] ALT No additional P-5'-P [Catalytic activity/Vol] 19 [iU]/d Normal 6 - 46 Int._Unit/ L [facility] Anion gap [Moles/Vol] 12 mmol/L Normal 6 - 16 mEq/L [facility] AST [Catalytic activity/Vol] 20 [iU]/d Normal 5 - 43 Int._Unit/ L [facility] Bilirubin [Mass/Vol] 0.7 mg/dL Normal 0.0 - 1 .1 mg/dL [facility] Calcium [Mass/Vol] 9.0 mg/dL Normal 8.9 - 11. 1 mg/dL [facility] Chloride [Moles/Vol] 108 mmol/L Normal 101 - 1 11 mmol/L [facility] CO2 [Moles/Vol] 23 mmol/L Normal 21 - 31 mmol/L [facility] Creatinine [Mass/Vol] 1.5 mg/dL High 0.5 - 1.3 mg/dL [facility] GFR/1.73 sq M.predicted among blacks MDRD (S/P/Bld) [Vol rate/Area] 41 mL/min/1.73 m2 Low >=59mL/min /1.73 m2 [facility] Chem S GFR/1.73 sq M.predicted among non-blacks MDRD (S/P/Bld) [Vol rate/Area] 34 mL/min/1.73 m2 Low >=59mL/min /1.73 m2 [facility] Globulin (S) [Mass/Vol] 3.2 g/dL Normal 1.4 - 4.0 gm/dL [facility] Glucose [Mass/Vol] 122 mg/dL Normal 55 - 199 mg/dL [facility] Potassium [Moles/Vol] 4.6 mmol/L Normal 3.5 - 5.3 mmol/L [facility] Protein [Mass/Vol] 6.9 g/dL Normal 6.0 - 7.8 gm/dL [facility] Sodium [Moles/Vol] 138 mmol/L Normal 135 - 145 mmol/L [facility] Urea nitrogen [Mass/Vol] 26 mg/dL High 5 - 21 mg/dL [facility] Urea nitrogen/Creatinine [Mass ratio] 17 mg/mg Normal 10 - 20 [facility] HEMATOLOGYOrdered By: SYSTEM SYSTEM on 11-01-2021 Basophils/100 WBC (Bld) 3.5 % High 0.0 - 2.0 % [facility] Basophils/Leukocytes Auto (Bld) [Pure # fraction] 0.1 E9/L Normal 0.0 - 0.2 E9/L [facility] Eosinophils/100 WBC (Bld) 1.8 % Normal 0.0 - 8.0 % [facility] Eosinophils/Leukocytes Auto (Bld) [Pure # fraction] 0.1 E9/L Normal 0.0 - 0.5 E9/L [facility] Lymphocytes/100 WBC (Bld) 48.6 % Normal 14.0 - 50.0 % [facility] Lymphocytes/Leukocytes Auto (Bld) [Pure # fraction] 2.0 E9/L Normal 1.0 - 4.0 E9/L [facility] Monocytes/100 WBC (Bld) 3.9 % Low 4.0 - 14.0 % [facility] Monocytes/Leukocytes Auto (Bld) [Pure # fraction] 0.2 E9/L Normal 0.2 - 1.0 E9/L [facility] Neutrophils/100 WBC (Bld) 42.2 % Normal 36.0 - 75.0 % [facility] Neutrophils/Leukocytes Auto (Bld) [Pure # fraction] 1.7 E9/L Low 2.0 - 7.5 E9/L [facility] HEMATOLOGYOrdered By: Maxim short on 11-01-2021 Erythrocyte distribution width (RBC) [Ratio] 20.6 % High 10.9 - 14.2 % [facility] Hematocrit (Bld) [Volume fraction] 37.6 % Normal 34.0 - 46.0 % [facility] Hemoglobin (Bld) [Mass/Vol] 12.9 g/dL Normal 12.0 - 16.0 gm/dL [facility] MCH (RBC) [Entitic mass] 32.7 pg Normal 27.0 - 34.0 pg [facility] MCHC (RBC) [Mass/Vol] 34.3 g/dL Normal 31.4 - 36.0 gm/dL [facility] MCV (RBC) [Entitic vol] 95.2 fL Normal 80.0 - 100.0 fL [facility] Platelet mean volume (Bld) [Entitic vol] 7.3 fL Normal 6.4 - 10.8 fL [facility] Platelets (Bld) [#/Vol] 387.0 E9/L Normal 150. 0 - 500.0 E9/L [facility] RBC (Bld) [#/Vol] 4.0 E12/L Low 4.3 - 5.9 E12/L [facility] WBC corrected for nucl RBC Auto (Bld) [#/Vol] 4.0 E9/L Normal 4.0 - 11.0 E9/L [facility] CHEMISTRYOrdered By: SYSTEM SYSTEM on 10-02-2021 Albumin [Mass/Vol] 3.9 g/dL Normal 3.3 - 5.0 gm/dL [facility] Albumin/Globulin [Mass ratio] 1.1 {ratio} Normal 1.1 - 2.2 [facility] ALP [Catalytic activity/Vol] 135 [iU]/d High 21 - 98 Int._Unit/ L [facility] ALT No additional P-5'-P [Catalytic activity/Vol] 37 [iU]/d Normal 6 - 46 Int._Unit/ L [facility] Anion gap [Moles/Vol] 16 mmol/L Normal 6 - 16 mEq/L [facility] AST [Catalytic activity/Vol] 25 [iU]/d Normal 5 - 43 Int._Unit/ L [facility] Bilirubin [Mass/Vol] 1.2 mg/dL High 0.0 - 1 .1 mg/dL [facility] Calcium [Mass/Vol] 9.1 mg/dL Normal 8.9 - 11. 1 mg/dL [facility] Chloride [Moles/Vol] 105 mmol/L Normal 101 - 1 11 mmol/L [facility] CO2 [Moles/Vol] 21 mmol/L Normal 21 - 31 mmol/L [facility] Creatinine [Mass/Vol] 1.4 mg/dL High 0.5 - 1.3 mg/dL [facility] GFR/1.73 sq M.predicted among blacks MDRD (S/P/Bld) [Vol rate/Area] 45 mL/min/1.73 m2 Low >=59mL/min /1.73 m2 [facility] Chem S GFR/1.73 sq M.predicted among non-blacks MDRD (S/P/Bld) [Vol rate/Area] 37 mL/min/1.73 m2 Low >=59mL/min /1.73 m2 [facility] S Globulin (S) [Mass/Vol] 3.5 g/dL Normal 1.4 - 4.0 gm/dL [facility] Glucose [Mass/Vol] 166 mg/dL Normal 55 - 199 mg/dL [facility] Potassium [Moles/Vol] 4.8 mmol/L Normal 3.5 - 5.3 mmol/L [facility] Protein [Mass/Vol] 7.4 g/dL Normal 6.0 - 7.8 gm/dL [facility] Sodium [Moles/Vol] 137 mmol/L Normal 135 - 145 mmol/L [facility] Urea nitrogen [Mass/Vol] 24 mg/dL High 5 - 21 mg/dL [facility] Urea nitrogen/Creatinine [Mass ratio] 17 mg/mg Normal 10 - 20 [facility] HEMATOLOGYOrdered By: SYSTEM SYSTEM on 10-02-2021 Basophils/100 WBC (Bld) 2.8 % High 0.0 - 2.0 % [facility] Basophils/Leukocytes Auto (Bld) [Pure # fraction] 0.1 E9/L Normal 0.0 - 0.2 E9/L [facility] Eosinophils/100 WBC (Bld) 3.6 % Normal 0.0 - 8.0 % [facility] Eosinophils/Leukocytes Auto (Bld) [Pure # fraction] 0.1 E9/L Normal 0.0 - 0.5 E9/L [facility] Lymphocytes/100 WBC (Bld) 32.7 % Normal 14.0 - 50.0 % [facility] Lymphocytes/Leukocytes Auto (Bld) [Pure # fraction] 1.3 E9/L Normal 1.0 - 4.0 E9/L [facility] Monocytes/100 WBC (Bld) 4.9 % Normal 4.0 - 14.0 % [facility] Monocytes/Leukocytes Auto (Bld) [Pure # fraction] 0.2 E9/L Normal 0.2 - 1.0 E9/L [facility] Neutrophils/100 WBC (Bld) 56.0 % Normal 36.0 - 75.0 % [facility] Neutrophils/Leukocytes Auto (Bld) [Pure # fraction] 2.2 E9/L Normal 2.0 - 7.5 E9/L [facility] HEMATOLOGYOrdered By: Lisette Tadeo on 10-02-2021 Erythrocyte distribution width (RBC) [Ratio] 19.0 % High 10.9 - 14.2 % [facility] Hematocrit (Bld) [Volume fraction] 38.9 % Normal 34.0 - 46.0 % [facility] Hemoglobin (Bld) [Mass/Vol] 13.3 g/dL Normal 12.0 - 16.0 gm/dL [facility] MCH (RBC) [Entitic mass] 31.2 pg Normal 27.0 - 34.0 pg [facility] MCHC (RBC) [Mass/Vol] 34.1 g/dL Normal 31.4 - 36.0 gm/dL [facility] MCV (RBC) [Entitic vol] 91.6 fL Normal 80.0 - 100.0 fL [facility] Platelet mean volume (Bld) [Entitic vol] 7.8 fL Normal 6.4 - 10.8 fL [facility] Platelets (Bld) [#/Vol] 317.0 E9/L Normal 150. 0 - 500.0 E9/L [facility] Comment on above: Result Comment: Plat elet count verified using smear estimate. RS 10/02/2021 15:55:05 EDT RBC (Bld) [#/Vol] 4.2 E12/L Low 4.3 - 5.9 E12/L [facility] WBC corrected for nucl RBC Auto (Bld) [#/Vol] 4.0 E9/L Normal 4.0 - 11.0 E9/L [facility] [place] [facility] [place] - Heme Onc Sched tata 08-28-2021 Clinic Note - Heme Onc Scheduling Retrieve Patient Instructions: Patient Instructions: Patient Instructions: RetrievePatient Instructions Instructions It was a pleasure meeting you today. Thank you for allowing me to take part in your care. Please contact our office if you have any questions or concerns going forward. End of Visit Documentation: Clinic Location/Phone Number: Clinic Location/Phone Number: [facility] End Of Visit MU Report Item: Visit Summary given or mailed to patientyes Mailed to patient Electronic Signatures: Isa Wong (SEC) (Signed 28-Aug-2021 16:01) Authored: Retrieve Patient Instructions, End of Visit Documentation Last Updated: 28-Aug-2021 16:01 by Isa Wong (SEC) Normal [facility] ([facility] Clinic Note - Heme Onc-New V christine 08-28-2021 Clinic Note - Heme Onc-New Visit Patient Visit Information: Visit Type: New Visit Cancer History: Breast AJCC Edition: 8th (AJCC), Diagnosis Date: August 2021, Stage(no match), pM1 G2 History of Present Illness: ID Statement: null is a () day old null Interval History: BREAST CANCER DIAGNOSIS metastatic ER+/TX+/HER2- breast cancer ([id number]) CONSULTING ONCOLOGIST Dr David Caldera CURRENT THERAPY anastrozole/ribociclib x 3 weeks HPI Patient is a pleasant 71 y/o woman here for a 2nd opinion. She presented on 06/29/21 with a 4.2cm mass in the right breast which she had for >1 year. Biopsy revealed ER/TX >95%/HER2- breast cancer. Also has known h/p of HTN, hypercholesterolemia. Staging scans (PET/CT) revealed large right breast mass + axillary masses and multiple bone metastases (L4 and anterior glenoid process on the right). She has been on anastrozole/ribociclib for about 3 wks now and has noticed a decrease in size of right breast mass. Tolerating treatment well. Here for 2nd opinion. Review of Systems: System ReviewAll other systems have been reviewed and are negative for complaint. ConstitutionalComments +fatigue EyesNEGATIVE: Blurry Vision, Drainage, Diploplia, Redness, Vision Loss/ Change ENMTNEGATIVE: Nasal Discharge, Nasal Congestion, Ear Pain, Mouth Pain, Throat Pain RespiratoryNEGATIVE: Dry Cough, Productive Cough, Hemoptysis, Wheezing, Shortness of Breath CardiologyNEGATIVE: Chest Pain, Dyspnea on Exertion, Orthopnea, Palpitations, Syncope GastrointestinalNEGATIVE: Abdominal Pain, Constipation, Diarrhea, Nausea, Vomiting GenitourinaryNEGATIVE: Discharge, Dysuria, Flank Pain, Frequency, Hematuria MusculoskeletalPOSITIVE: Pain, Stiffness NeurologicalNEGATIVE: Dizziness, Confusion, Headache, Seizures, Syncope PsychiatricPOSITIVE: Anxiety NEGATIVE: Mood Changes, Hallucinations, Sleep Changes, Suicidal Ideas EndocrineNEGATIVE: Heat Intolerance, Cold Intolerance, Sweat, Polyuria, Thirst Hematologic/LymphNEGATIVE : Anemia, Bruising, Easy Bleeding, Night Sweats, Petechiae Allergic/ImmunologicNEGAT CHARLES: Anaphylaxis, Itchy/ Teary Eyes, Itching, Sneezing, Swelling BreastNEGATIVE: Pain, Mass, Discharge, Nipple Itching, Gynecomastia Allergies and Intolerances: Allergies: penicillin: Drug, Other, Active Outpatient Medication Profile: * Patient Currently Takes Medications as of 28-Aug-2021 13:21 documented in Structured Notes Kisqali (600 mg daily dose) oral tablet: Last Dose Taken: , 3 tab(s) orally once a day simvastatin 40 mg oral tablet: Last Dose Taken: , 1 tab(s) orally once a day (at bedtime) ondansetron 4 mg oral tablet: Last Dose Taken: , 1 tab(s) orally every 8 hours, As Needed anastrozole 1 mg oral tablet: Last Dose Taken: , 1 tab(s) orally once a day furosemide 40 mg oral tablet: Last Dose Taken: , 1 tab(s) orally once a day lisinopril 10 mg oral tablet: Last Dose Taken: , 1 tab(s) orally once a day Family History: No Family History items are recorded in the problem list. Social History: Social Substance History: Smoking Statusnever smoker Physical Exam: Constitutional: Well developed, awake/alert/oriented x4, no distress, alert and cooperative Eyes: PERRL, EOMI, clear sclera ENMT: wearing mask due to COVID Head/Neck: Neck supple, no apparent injury, thyroid without mass or tenderness, No JVD, trachea midline, no bruits Respiratory/Thorax: Patent airways, CTAB, normal breath sounds with good chest expansion, thorax symmetric Cardiovascular: Regular, rate and rhythm, no murmurs, 2+ equal pulses of the extremities, normal S 1and S 2 Gastrointestinal: Nondistended, soft, non-tender, no rebound tenderness or guarding, no masses palpable, no organomegaly, +BS, no bruits Genitourinary: deferred Musculoskeletal: ROM intact, no joint swelling, normal strength Extremities: normal extremities, no cyanosis edema, contusions or wounds, no clubbing Neurological: alert and oriented x4, intact senses, motor, response and reflexes, normal strength Breast: +palpable right breast mass measuring about 4 cm. Lymphatic: +palpable right axillary adenopathy Psychological: Appropriate mood and behavior Skin: Warm and dry, no lesions, no rashes Radiology Result: Results Exam Date/Time: 07/22/2021 18:00 EDT Reason for Exam: Malignant neoplasm of upper-outer quadrant of right female breast Addendum ADDENDUM: On further review, there is a focal area with increased uptake of activity involving medullary bone of the anterior glenoid process on the right, with SUV of 4.7, and this is consistent with a bone metastasis. There are prominent arthritic changes at the right hip, with severe joint space narrowing posteromedially, hypertrophic spurring, and subarticular bony cystic changes of the acetabulum and femoral head. There is some increased uptake of activity at the right hip, corresponding to (more content not included)... Normal [facility] Clinic Note - Intakeon 08-28 Clinic Note - Intake Patient Visit Information: Visit TypeNew Visit Source of Informationpatient Accompanied byfamily Vital Signs: Temp (degrees C)36.8 degrees C Temperatureskin Heart Rate (beats/min)73 beats per minute Respiration (breaths/min)20 breath per minute BP Systolic (mm Hg)135 mmHg BP Diastolic (mm Hg)65 mmHg BP Mean (mm Hg)88 mmHg Height in cm159 centimeter(s) Height Methodmeasured Heightstanding Weight in kg98.6 kilogram(s) BMI (kg/m2)39 kg/M2 BSA (m2)2.08 M2 Nursing Verification [id number] Nursing Verification Height in cm159 centimeter(s) SpO2 (%)98 % SpO2 Patient Onroom air Pain Screening: Patient States Painno (0) Jet Man for intimate exam offered to patient: Patient hasdeclined Allergies: penicillin: Drug, Other, Active Outpatient Medication Profile: * Patient Currently Takes Medications as of 28-Aug-2021 13:21 documented in Structured Notes Kisqali (600 mg daily dose) oral tablet: Last Dose Taken: , 3 tab(s) orally once a day simvastatin 40 mg oral tablet: Last Dose Taken: , 1 tab(s) orally once a day (at bedtime) ondansetron 4 mg oral tablet: Last Dose Taken: , 1 tab(s) orally every 8 hours, As Needed anastrozole 1 mg oral tablet: Last Dose Taken: , 1 tab(s) orally once a day furosemide 40 mg oral tablet: Last Dose Taken: , 1 tab(s) orally once a day lisinopril 10 mg oral tablet: Last Dose Taken: , 1 tab(s) orally once a day Notification: NotificationsAnnual Screens Due Dates Advanced Directives: August 28, 2022 Family Violence: August 28, 2022 Depression (Due every 6 months for ONC only; all others use Annual date): Feb 24, 2022 Substance Use - Alcohol: August 28, 2022 Substance Use - Drugs: August 28, 2022 Nutrition: August 28, 2022 Learning: August 28, 2022 Travel History: COVID-19 Screening Completedno exposure or symptoms Travel or ExposureNO travel to International locations in the past 30 days Falls: Have you fallen in the last 6 monthsno Do you have a fear of fallingno Do you feel you need assistanceyes Is the patient using an assistive deviceyes With what do you need assistancewalking in unfamiliar setting Falls Band/Sticker Applied and Clinician Awareyes Spiritual/Procedural: Spiritual/cultural/religi ous practices important for us to knowno Adv Dir: Living [facility] POAyes Declaration of Mental Health Treatmentno Living Will Formsasked to bring forms next visit Healthcare POA Formsasked to bring forms next visit Mental Health Formsdeclines more information Violence: Are you or have you been threatened or abused physically,emotionally or sexually abused by anyoneno Do you feel UNSAFE going back to the place you are livingno Depression: Past 2 wks: [place] down, depressed or hopelessno Past 2 wks: [place] little interest/pleasure doing thingsno Any Thoughts of Harming Othersno In the Past Month: Have you wished you were or could go to sleep and not wake upno In the Past Month: Have you had any actual thoughts of killing yourselfno Lifetime: Have you ever done, started to do, or prepared to do anything to end your lifeno Substance: How many times in the past year have you had 4 or more drinks within 24 hours0 How many times in past year have you used recreational or prescription drugs for non-medical reasons0 Nutrition/Learning: In the past month, was there any day when you or anyone in your family went hungry because you didn't have enough foodno Primary LanguageEnglish Do you, or others today, need extra help due to problems with hearing,speaking, seeing, moving around or learningno Electronic Signatures: Zhane Mulligan (ALEJANDRA) (Signed 28-Aug-2021 13:21) Authored: Patient Visit Information, Vital Signs, Jet Man, Allergies, Outpatient Medication Profile, Notification, Travel History, Falls, Spiritual/Procedural, Adv Dir, Violence, Depression, Substance, Nutrition/Learning Lisette Valle (RN) (Signed 28-Aug-2021 15:47) Authored: Vital Signs, Notification Co-Signer: Patient Visit Information, Vital Signs, Jet Man, Allergies, Outpatient Medication Profile, Notification, Travel History, Falls, Spiritual/Procedural, Adv Dir, Violence, Depression, Substance, Nutrition/Learning Last Updated: 28-Aug-2021 15:47 by Lisette Valle (RN) [facility] Narrative Note - Outpatient- Community Health Workeron 08-25-2021 Narrative Note - Outpatient-Community Health Worker Narrative Note: CHW: DisciplineCommunity Health Worker Best way to contact patient#[id number] Veteranno Has patient been seen by a provider in past 3 monthsyes I may need support with the following:other concerns Within the past 12 months, you worried that your food would run out before you got money to buy lofton Within the past 12 months, the food you bought just didn't last and you didn't have money to get lofton Follow Up Planno follow up needed CommentsPt has an appt. scheduled on 08/28/21@2p and listed having [employer] Medicare A & B (payor rejection). CHW contacted pt. and she stated that she has open [employer] health insurance. Pt. also stated he last name was being spelled wrong and that it should list [place] not [place]. Electronic Signatures: Leroy Gallegos (COOR) (Signed 25-Aug-2021 11:50) Authored: IVAN Last Updated: 25-Aug-2021 11:50 by Leroy Gallegos (COOR) Normal [facility] CHEMISTRYOrdered By: SYSTEM SYSTEM on 08-21-2021 Albumin [Mass/Vol] 3.5 g/dL Normal 3.3 - 5.0 gm/dL [facility] Albumin/Globulin [Mass ratio] 1.1 {ratio} Normal 1.1 - 2.2 [facility] ALP [Catalytic activity/Vol] 71 [iU]/d Normal 21 - 98 Int._Unit/ L [facility] ALT No additional P-5'-P [Catalytic activity/Vol] 16 [iU]/d Normal 6 - 46 Int._Unit/ L [facility] Anion gap [Moles/Vol] 11 mmol/L Normal 6 - 16 mEq/L [facility] AST [Catalytic activity/Vol] 17 [iU]/d Normal 5 - 43 Int._Unit/ L [facility] Bilirubin [Mass/Vol] 0.8 mg/dL Normal 0.0 - 1 .1 mg/dL [facility] Calcium [Mass/Vol] 8.7 mg/dL Low 8.9 - 11. 1 mg/dL [facility] Carcinoembryonic Ag [Mass/Vol] 10.2 ng/mL Invalid Interpretation Code [facility] Chloride [Moles/Vol] 110 mmol/L Normal 101 - 1 11 mmol/L [facility] CO2 [Moles/Vol] 21 mmol/L Normal 21 - 31 mmol/L [facility] Creatinine [Mass/Vol] 1.0 mg/dL Normal 0.5 - 1.3 mg/dL [facility] GFR/1.73 sq M.predicted among blacks MDRD (S/P/Bld) [Vol rate/Area] mL/min/1.73 m2 Normal >=59mL/min /1.73 m2 [facility] S GFR/1.73 sq M.predicted among non-blacks MDRD (S/P/Bld) [Vol rate/Area] 54 mL/min/1.73 m2 Low >=59mL/min /1.73 m2 [facility] Globulin (S) [Mass/Vol] 3.1 g/dL Normal 1.4 - 4.0 gm/dL [facility] Glucose [Mass/Vol] 132 mg/dL Normal 55 - 199 mg/dL [facility] Potassium [Moles/Vol] 4.1 mmol/L Normal 3.5 - 5.3 mmol/L [facility] Protein [Mass/Vol] 6.6 g/dL Normal 6.0 - 7.8 gm/dL [facility] Sodium [Moles/Vol] 138 mmol/L Normal 135 - 145 mmol/L [facility] Urea nitrogen [Mass/Vol] 28 mg/dL High 5 - 21 mg/dL [facility] Urea nitrogen/Creatinine [Mass ratio] 28 mg/mg High 10 - 20 [facility] HEMATOLOGYOrdered By: SYSTEM SYSTEM on 08-21-2021 Basophils/100 WBC (Bld) 1.1 % Normal 0.0 - 2.0 % [facility] Basophils/Leukocytes Auto (Bld) [Pure # fraction] 0.1 E9/L Normal 0.0 - 0.2 E9/L [facility] Eosinophils/100 WBC (Bld) 3.5 % Normal 0.0 - 8.0 % [facility] Eosinophils/Leukocytes Auto (Bld) [Pure # fraction] 0.3 E9/L Normal 0.0 - 0.5 E9/L [facility] Lymphocytes/100 WBC (Bld) 35.9 % Normal 14.0 - 50.0 % [facility] Lymphocytes/Leukocytes Auto (Bld) [Pure # fraction] 2.7 E9/L Normal 1.0 - 4.0 E9/L [facility] Monocytes/100 WBC (Bld) 5.3 % Normal 4.0 - 14.0 % [facility] Monocytes/Leukocytes Auto (Bld) [Pure # fraction] 0.4 E9/L Normal 0.2 - 1.0 E9/L [facility] Neutrophils/100 WBC (Bld) 54.2 % Normal 36.0 - 75.0 % [facility] Neutrophils/Leukocytes Auto (Bld) [Pure # fraction] 4.1 E9/L Normal 2.0 - 7.5 E9/L [facility] HEMATOLOGYOrdered By: Sana Ryan on 08-21-2021 Erythrocyte distribution width (RBC) [Ratio] 14.5 % High 10.9 - 14.2 % [facility] Hematocrit (Bld) [Volume fraction] 40.6 % Normal 34.0 - 46.0 % [facility] Hemoglobin (Bld) [Mass/Vol] 13.6 g/dL Normal 12.0 - 16.0 gm/dL [facility] MCH (RBC) [Entitic mass] 29.8 pg Normal 27.0 - 34.0 pg [facility] MCHC (RBC) [Mass/Vol] 33.5 g/dL Normal 31.4 - 36.0 gm/dL [facility] MCV (RBC) [Entitic vol] 88.9 fL Normal 80.0 - 100.0 fL [facility] Platelet mean volume (Bld) [Entitic vol] 7.9 fL Normal 6.4 - 10.8 fL [facility] Platelets (Bld) [#/Vol] 185.0 E9/L Normal 150. 0 - 500.0 E9/L [facility] RBC (Bld) [#/Vol] 4.6 E12/L Normal 4.3 - 5.9 E12/L [facility] WBC corrected for nucl RBC Auto (Bld) [#/Vol] 7.6 E9/L Normal 4.0 - 11.0 E9/L [facility] Nurse Navigator - Breast-Sec ond Opinionon 08-15-2021 Nurse Navigator - Breast-Second Opinion Preview: Note Preview Care Navigation Disease Team: Breast Interaction with: Patient Visit Type: Initial Evaluation Encounter Type: Phone Call Continuum of Care: Second Opinion Breast Cancer Type: Invasive Barriers to Care Barriers to Care: Care Coordination Care Coordination: Navigating Healthcare System Interventions Care Coordination: Advocacy on Behalf of Patient, Provide Written Information and Provide Verbal Information Patient Communication/Education: Provide Orientation to Cancer Program and Navigation Services Team Communications/Referrals Oncology Nurse Navigator received voicemail from pt with questions regarding upcoming appointment, attempted to reach pt, unable to leave voicemail as mailbox was full. RHONDA Mendenhall, RN 08/16/21 1101: Oncology Nurse Navigator reached out and spoke with pt, introduced self and explained role within the multidisciplinary team at [facility]; reviewed upcoming appointment with Dr. Seay, provided directions via email to pt and granddaughter who will be driving pt to appt. Records forwarded to Dr. Seay and team. Answered questions and provided contact information. Oncology Nurse Navigator will remain available to assist patient. Patient verbalized the understanding that she can reach out to Oncology Nurse Navigator as needed. RHONDA Mendenhall, RN Electronic Signatures: Aliya Dobson (DELGADO) (Signed 16-Aug-2021 11:34) Authored: Care Navigation, Barriers to Care, Interventions, Team Communications/Referrals, Preview Last Updated: 16-Aug-2021 11:34 by Aliya Dobson (DELGADO) Normal [facility] (formerly [facility] CHEMISTRYOrdered By: SYSTEM SYSTEM on 08-07-2021 Albumin [Mass/Vol] 3.6 g/dL Normal 3.3 - 5.0 gm/dL [facility] Albumin/Globulin [Mass ratio] 1.1 {ratio} Normal 1.1 - 2.2 [facility] ALP [Catalytic activity/Vol] 74 [iU]/d Normal 21 - 98 Int._Unit/ L [facility] ALT No additional P-5'-P [Catalytic activity/Vol] 19 [iU]/d Normal 6 - 46 Int._Unit/ L [facility] Anion gap [Moles/Vol] 12 mmol/L Normal 6 - 16 mEq/L [facility] AST [Catalytic activity/Vol] 19 [iU]/d Normal 5 - 43 Int._Unit/ L [facility] Bilirubin [Mass/Vol] 1.1 mg/dL Normal 0.0 - 1 .1 mg/dL [facility] Calcium [Mass/Vol] 9.0 mg/dL Normal 8.9 - 11. 1 mg/dL [facility] Chloride [Moles/Vol] 107 mmol/L Normal 101 - 1 11 mmol/L [facility] CO2 [Moles/Vol] 21 mmol/L Normal 21 - 31 mmol/L [facility] Creatinine [Mass/Vol] 1.1 mg/dL Normal 0.5 - 1.3 mg/dL [facility] GFR/1.73 sq M.predicted among blacks MDRD (S/P/Bld) [Vol rate/Area] 59 mL/min/1.73 m2 Normal >=59mL/min /1.73 m2 [facility] Chem S GFR/1.73 sq M.predicted among non-blacks MDRD (S/P/Bld) [Vol rate/Area] 49 mL/min/1.73 m2 Low >=59mL/min /1.73 m2 [facility] Chem S Globulin (S) [Mass/Vol] 3.4 g/dL Normal 1.4 - 4.0 gm/dL [facility] Remisol Glucose [Mass/Vol] 151 mg/dL Normal 55 - 199 mg/dL [facility] Potassium [Moles/Vol] 4.5 mmol/L Normal 3.5 - 5.3 mmol/L [facility] Protein [Mass/Vol] 7.0 g/dL Normal 6.0 - 7.8 gm/dL [facility] Sodium [Moles/Vol] 135 mmol/L Normal 135 - 145 mmol/L [facility] Urea nitrogen [Mass/Vol] 30 mg/dL High 5 - 21 mg/dL [facility] Urea nitrogen/Creatinine [Mass ratio] 27 mg/mg High 10 - 20 [facility] HEMATOLOGYOrdered By: SYSTEM SYSTEM on 08-07-2021 Basophils/100 WBC (Bld) 1.4 % Normal 0.0 - 2.0 % [facility] Basophils/Leukocytes Auto (Bld) [Pure # fraction] 0.1 E9/L Normal 0.0 - 0.2 E9/L [facility] Eosinophils/100 WBC (Bld) 2.1 % Normal 0.0 - 8.0 % [facility] Eosinophils/Leukocytes Auto (Bld) [Pure # fraction] 0.1 E9/L Normal 0.0 - 0.5 E9/L [facility] Lymphocytes/100 WBC (Bld) 25.7 % Normal 14.0 - 50.0 % [facility] Lymphocytes/Leukocytes Auto (Bld) [Pure # fraction] 1.6 E9/L Normal 1.0 - 4.0 E9/L [facility] Monocytes/100 WBC (Bld) 5.6 % Normal 4.0 - 14.0 % [facility] Monocytes/Leukocytes Auto (Bld) [Pure # fraction] 0.3 E9/L Normal 0.2 - 1.0 E9/L [facility] Neutrophils/100 WBC (Bld) 65.2 % Normal 36.0 - 75.0 % [facility]eAuto[facility] Neutrophils/Leukocytes Auto (Bld) [Pure # fraction] 3.9 E9/L Normal 2.0 - 7.5 E9/L [facility] HEMATOLOGYOrdered By: Katherine Last on 08-07-2021 Erythrocyte distribution width (RBC) [Ratio] 14.3 % High 10.9 - 14.2 % [facility] Hematocrit (Bld) [Volume fraction] 42.8 % Normal 34.0 - 46.0 % [facility] Hemoglobin (Bld) [Mass/Vol] 14.5 g/dL Normal 12.0 - 16.0 gm/dL [facility] MCH (RBC) [Entitic mass] 29.8 pg Normal 27.0 - 34.0 pg [facility] MCHC (RBC) [Mass/Vol] 33.9 g/dL Normal 31.4 - 36.0 gm/dL [facility] MCV (RBC) [Entitic vol] 87.7 fL Normal 80.0 - 100.0 fL [facility] Platelet mean volume (Bld) [Entitic vol] 7.5 fL Normal 6.4 - 10.8 fL [facility]eAuto[facility] Platelets (Bld) [#/Vol] 196.0 E9/L Normal 150. 0 - 500.0 E9/L [facility]eAuto[facility] RBC (Bld) [#/Vol] 4.9 E12/L Normal 4.3 - 5.9 E12/L [facility]eAuto[facility] WBC corrected for nucl RBC Auto (Bld) [#/Vol] 6.1 E9/L Normal 4.0 - 11.0 E9/L [facility] Vital Signs Date Time Vital Sign Value Performing Clinician Facility 01-30-2023 14:25-0400 Heart rate 76 /min Senthil Caldera [facility] 01-30-2023 14:25-0400 SaO2% (BldA) [Mass fraction] 96 % Senthil Caldera [facility] 01-30-2023 14:25-0400 Diastolic blood pressure 61 mm[Hg] Senthilleopoldo Caldera [facility] 01-30-2023 14:25-0400 Mean blood pressure 79 mm[Hg] Senthil Caldera [facility] 01-30-2023 14:25-0400 Systolic blood pressure 115 mm[Hg] Senthilleopoldo Caldera [facility] 01-30-2023 14:25-0400 Body temperature 97.7 [degF] Senthil Caldera [facility] 01-30-2023 14:00-0400 Blood Pressure Location Senthilleopoldo Caldera [facility] 01-30-2023 14:00-0400 Respiratory rate 16 /min Senthilleopoldo Caldera [facility] 12-23-2022 10:15-0400 Hourly Rounding Mbanefo OJUKWU [facility] 12-23-2022 10:15-0400 Promise to Return Mbanefo OJUKWU [facility] 12-23-2022 09:00-0400 Hourly Rounding Mbanefo OJUKWU [facility] 12-23-2022 09:00-0400 Promise to Return Mbanefo OJUKWU [facility] 12-23-2022 08:46-0400 Diastolic blood pressure 64 mm[Hg] Mbanefo OJUKWU [facility] 12-23-2022 08:46-0400 Systolic blood pressure 96 mm[Hg] Mbanefo OJUKWU [facility] 12-23-2022 08:40-0400 gluc 111 mg/dL Mbanefo OJUKWU [facility] 12-23-2022 08:37-0400 Heart rate 56 /min Mbanefo OJUKWU [facility] 12-23-2022 08:37-0400 SaO2% (BldA) [Mass fraction] 96 % Mbanefo OJUKWU [facility] 12-23-2022 08:37-0400 Respiratory rate 18 /min Mbanefo OJUKWU [facility] 12-23-2022 08:37-0400 Body temperature 97.88 [degF] Mbanefo OJUKWU [facility] 12-23-2022 08:37-0400 Diastolic blood pressure 64 mm[Hg] Mbanefo OJUKWU [facility] 12-23-2022 08:37-0400 Mean blood pressure 74 mm[Hg] Mbanefo OJUKWU [facility] 12-23-2022 08:37-0400 Systolic blood pressure 96 mm[Hg] Mbanefo OJUKWU [facility] 12-23-2022 08:00-0400 Hourly Rounding Mbanefo OJUKWU [facility] 12-23-2022 08:00-0400 Promise to Return Mbanefo OJUKWU [facility] 12-22-2022 23:44-0400 Heart rate 58 /min Mbanefo OJUKWU [facility] 12-22-2022 23:44-0400 SaO2% (BldA) [Mass fraction] 97 % Mbanefo OJUKWU [facility] 12-22-2022 23:44-0400 Body temperature 98.06 [degF] Mbanefo OJUKWU [facility] 12-22-2022 23:44-0400 Diastolic blood pressure 60 mm[Hg] Mbanefo OJUKWU [facility] 12-22-2022 23:44-0400 Mean blood pressure 72 mm[Hg] Mbanefo OJUKWU [facility] 12-22-2022 23:44-0400 Systolic blood pressure 96 mm[Hg] Mbanefo OJUKWU [facility] 12-22-2022 19:33-0400 Heart rate 62 /min Mbanefo OJUKWU [facility] 12-22-2022 19:33-0400 SaO2% (BldA) [Mass fraction] 97 % Mbanefo OJUKWU [facility] 12-22-2022 19:33-0400 Body temperature 98.24 [degF] Mbanefo OJUKWU [facility] 12-22-2022 19:32-0400 Mean blood pressure 69 mm[Hg] Mbanefo OJUKWU [facility] 12-22-2022 16:03-0400 gluc 129 mg/dL Mbanefo OJUKWU [facility] 12-22-2022 15:46-0400 Respiratory rate 16 /min Mbanefo OJUKWU [facility] 12-22-2022 11:52-0400 gluc 158 mg/dL Mbanefo OJUKWU [facility] 12-22-2022 11:13-0400 Respiratory rate 13 /min Mbanefo OJUKWU [facility] 12-22-2022 06:56-0400 Blood Pressure Location Mbanefo OJUKWU [facility] 12-22-2022 06:56-0400 Body temperature 98.42 [degF] Mbanefo OJUKWU [facility] 12-22-2022 06:56-0400 Mean blood pressure 85 mm[Hg] Mbanefo OJUKWU [facility] 12-21-2022 23:00-0400 Blood Pressure Location Mbanefo OJUKWU [facility] 12-21-2022 23:00-0400 Body temperature 98.96 [degF] Mbanefo OJUKWU [facility] 12-21-2022 23:00-0400 Mean blood pressure 84 mm[Hg] Mbanefo OJUKWU [facility] 12-21-2022 05:35-0400 Mean blood pressure 79 mm[Hg] Mbanefo OJUKWU [facility] 12-20-2022 21:08-0400 Body temperature 97.7 [degF] Mbanefo OJUKWU [facility] 12-20-2022 21:08-0400 Heart rate 65 /min Mbanefo OJUKWU [facility] 12-20-2022 15:06-0400 Heart rate 75 /min Mbanefo OJUKWU [facility] 12-20-2022 00:45-0400 Diastolic blood pressure 72 mm[Hg] David Ran [facility] 12-20-2022 00:45-0400 Heart rate 76 /min David Ran [facility] 12-20-2022 00:45-0400 Mean blood pressure 89 mm[Hg] David Ran [facility] 12-20-2022 00:45-0400 Respiratory rate 14 /min David Ran [facility] 12-20-2022 00:45-0400 SaO2% (BldA) [Mass fraction] 100 % David Ran [facility] 12-20-2022 00:45-0400 Systolic blood pressure 124 mm[Hg] David Ran [facility] 12-20-2022 00:15-0400 Diastolic blood pressure 70 mm[Hg] David Ran [facility] 12-20-2022 00:15-0400 Heart rate 71 /min David Ran [facility] 12-20-2022 00:15-0400 Mean blood pressure 92 mm[Hg] David Ran [facility] 12-20-2022 00:15-0400 Respiratory rate 14 /min David Ran [facility] 12-20-2022 00:15-0400 SaO2% (BldA) [Mass fraction] 92 % David Ran [facility] 12-20-2022 00:15-0400 Systolic blood pressure 137 mm[Hg] David Ran [facility] 12-19-2022 23:45-0400 Diastolic blood pressure 61 mm[Hg] David Ran [facility] 12-19-2022 23:45-0400 Heart rate 80 /min David Ran [facility] 12-19-2022 23:45-0400 Mean blood pressure 85 mm[Hg] David Ran [facility] 12-19-2022 23:45-0400 Respiratory rate 16 /min David Tong [facility] 12-19-2022 23:45-0400 SaO2% (BldA) [Mass fraction] 97 % David Tong [facility] 12-19-2022 23:45-0400 Systolic blood pressure 132 mm[Hg] David Tong [facility] 12-19-2022 20:41-0400 Body temperature 98.24 [degF] David Tong [facility] 12-19-2022 20:41-0400 Heart rate 82 /min David Tong [facility] 12-19-2022 20:41-0400 Respiratory rate 20 /min David Tong [facility] 12-17-2022 13:20-0400 Diastolic blood pressure 77 mm[Hg] Jeffery Murphy [facility] 12-17-2022 13:20-0400 Heart rate 60 /min Jeffery Murphy [facility] 12-17-2022 13:20-0400 Hourly Rounding Jeffery Murphy [facility] 12-17-2022 13:20-0400 Mean blood pressure 95 mm[Hg] Jeffery Castelane [facility] 12-17-2022 13:20-0400 Promise to Return Jeffery Murphy [facility] 12-17-2022 13:20-0400 SaO2% (BldA) [Mass fraction] 97 % Jeffery Murphy [facility] 12-17-2022 13:20-0400 Systolic blood pressure 132 mm[Hg] Jeffery Castelane [facility] 12-17-2022 12:20-0400 Diastolic blood pressure 71 mm[Hg] Jeffery Katherine [facility] 12-17-2022 12:20-0400 Heart rate 71 /min Jeffery Katherine [facility] 12-17-2022 12:20-0400 Hourly Rounding Jeffery Katherine [facility] 12-17-2022 12:20-0400 Mean blood pressure 86 mm[Hg] Jeffery Katherine [facility] 12-17-2022 12:20-0400 Promise to Return Jeffery Katherine [facility] 12-17-2022 12:20-0400 SaO2% (BldA) [Mass fraction] 96 % Jeffery Katherine [facility] 12-17-2022 12:20-0400 Systolic blood pressure 117 mm[Hg] Jeffery Katherine [facility] 12-17-2022 11:21-0400 Hourly Rounding Jeffery Katherine [facility] 12-17-2022 11:21-0400 Promise to Return Jeffery Katherine [facility] 12-17-2022 11:20-0400 Diastolic blood pressure 84 mm[Hg] Jeffery Katherine [facility] 12-17-2022 11:20-0400 Heart rate 68 /min Jeffery Katherine [facility] 12-17-2022 11:20-0400 Mean blood pressure 99 mm[Hg] Jeffery Katherine [facility] 12-17-2022 11:20-0400 Respiratory rate 18 /min Jeffery Katherine [facility] 12-17-2022 11:20-0400 SaO2% (BldA) [Mass fraction] 96 % Jeffery Murphy [facility] 12-17-2022 11:20-0400 Systolic blood pressure 130 mm[Hg] Jeffery Murphy [facility] 12-17-2022 10:22-0400 Body temperature 97.88 [degF] Jeffery Murphy [facility] 12-17-2022 10:22-0400 Heart rate 69 /min Jeffery Murphy [facility] 12-17-2022 10:22-0400 Respiratory rate 18 /min Jeffery Murphy [facility] 11-04-2022 14:00-0400 Hourly Rounding Ronobir JESSICA [facility] 11-04-2022 13:40-0400 Hourly Rounding Ronobir JESSICA [facility] 11-04-2022 13:40-0400 Promise to Return Ronobir JESSICA [facility] 11-04-2022 13:00-0400 Hourly Rounding Ronobir JESSICA [facility] 11-04-2022 12:26-0400 Promise to Return Ronobir JESSCIA [facility] 11-04-2022 11:48-0400 Heart rate 78 /min Ronobir JESSICA [facility] 11-04-2022 11:48-0400 SaO2% (BldA) [Mass fraction] 95 % Ronobir JESSICA [facility] 11-04-2022 11:48-0400 Diastolic blood pressure 83 mm[Hg] Ronobir JESSICA [facility] 11-04-2022 11:48-0400 Mean blood pressure 96 mm[Hg] Ronobir JESSICA [facility] 11-04-2022 11:48-0400 Systolic blood pressure 122 mm[Hg] Ronobir JESSICA [facility] 11-04-2022 11:48-0400 Body temperature 98.24 [degF] Ronobir JESSICA [facility] 11-04-2022 11:17-0400 Promise to Return Ronobir JESSICA [facility] 11-04-2022 08:24-0400 Diastolic blood pressure 78 mm[Hg] Ronobir JESSICA [facility] 11-04-2022 08:24-0400 Systolic blood pressure 127 mm[Hg] Ronobir JESSICA [facility] 11-04-2022 07:32-0400 Heart rate 77 /min Ronobir JESSICA [facility] 11-04-2022 07:32-0400 SaO2% (BldA) [Mass fraction] 94 % Ronobir JESSICA [facility] 11-04-2022 07:31-0400 Body temperature 97.7 [degF] Ronobir JESSICA [facility] 11-04-2022 07:31-0400 Diastolic blood pressure 78 mm[Hg] Ronobir JESSICA [facility] 11-04-2022 07:31-0400 Mean blood pressure 94 mm[Hg] Ronobir JESSICA [facility] 11-04-2022 07:31-0400 Systolic blood pressure 127 mm[Hg] Ronobir JESSICA [facility] 11-03-2022 23:16-0400 Heart rate 79 /min Ronobir JESSICA [facility] 11-03-2022 23:16-0400 SaO2% (BldA) [Mass fraction] 97 % Ronobir JESSICA [facility] 11-03-2022 23:16-0400 Mean blood pressure 108 mm[Hg] Ronobir JESSICA [facility] 11-03-2022 23:15-0400 Body temperature 97.7 [degF] Ronobir JESSICA [facility] 11-03-2022 20:00-0400 Blood Pressure Location Ronobir JESSICA [facility] 11-03-2022 20:00-0400 Respiratory rate 21 /min Ronobir JESSICA [facility] 11-03-2022 09:00-0400 Mean blood pressure 87 mm[Hg] Ronobir JESSICA [facility] 11-03-2022 09:00-0400 Respiratory rate 16 /min Ronobir JESSICA [facility] 11-02-2022 21:15-0400 Mean blood pressure 95 mm[Hg] Ronobir JESSICA [facility] 11-02-2022 11:51-0400 Respiratory rate 18 /min Ronobir JESSICA [facility] 11-02-2022 03:50-0400 Heart rate 68 /min Ronobir JESSICA [facility] 11-02-2022 03:18-0400 Respiratory rate 10 /min Ronobir JESSICA [facility] 11-02-2022 02:38-0400 Nursing Progress Note Reason Other: pt complains of back pain. repositioned in bed. medicated for pain. Ronobir JESSICA [facility] 11-02-2022 02:38-0400 Respiratory rate 7 /min Ronobir JESSICA [facility] 11-02-2022 02:37-0400 Heart rate 73 /min Ronobir JESSICA [facility] 11-01-2022 23:15-0400 Nursing Progress Note Reason Other: trauma made medical at this time. mini cath done and urine sent to lab. pt repositioned in bed Ronobir JESSICA [facility] 11-01-2022 22:53-0400 Body temperature 96.62 [degF] Ronobir JESSICA [facility] 11-01-2022 22:53-0400 Heart rate 74 /min Ronobir JESSICA [facility] 11-01-2022 22:03-0400 Heart rate 69 /min Ronobir JESSICA [facility] 08-01-2022 13:00-0400 Blood Pressure Location [facility] 08-01-2022 13:00-0400 Body temperature 98.6 [degF] [facility] 13:00-0400 Diastolic blood pressure 84 mm[Hg] [facility]-01-[facility] 13:00-0400 Heart rate 76 /min [facility] 08-01-2022 13:00-0400 Mean blood pressure 101 mm[Hg] [facility] 13:00-0400 Respiratory rate 16 /min [facility] 08-01-2022 13:00-0400 SaO2% (BldA) [Mass fraction] 97 % [facility] 08-01-2022 13:00-0400 Systolic blood pressure 136 mm[Hg] [facility] 06-06-2022 12:59-0500 Heart rate 61 /min [facility] 06-06-2022 12:59-0500 SaO2% (BldA) [Mass fraction] 98 % [facility] 06-06-2022 12:59-0500 Respiratory rate 16 /min [facility]-06-2022 12:59-0500 Body temperature 97.7 [degF] [facility] 06-06-2022 12:58-0500 Diastolic blood pressure 106 mm[Hg] [facility] 06-06-2022 12:58-0500 Mean blood pressure 116 mm[Hg] [facility] 06-06-2022 12:58-0500 Systolic blood pressure 137 mm[Hg] [facility] 03-28-2022 14:10-0500 Heart rate 66 /min [facility] 03-28-2022 14:10-0500 SaO2% (BldA) [Mass fraction] 96 % [facility] 03-28-2022 14:09-0500 Body temperature 98.42 [degF] [facility] 03-28-2022 14:09-0500 Diastolic blood pressure 77 mm[Hg] [facility] 03-28-2022 14:09-0500 Mean blood pressure 93 mm[Hg] [facility] 03-28-2022 14:09-0500 Systolic blood pressure 127 mm[Hg] [facility] 03-28-2022 14:09-0500 Blood Pressure Location [facility] 03-28-2022 14:09-0500 Body temperature 98.42 [degF] Senthil Caldera [facility] 03-28-2022 14:09-0500 Mean blood pressure 94 mm[Hg] Senthil Caldera [facility] 03-28-2022 14:09-0500 Respiratory rate 18 /min [facility] 01-18-2022 14:13-0400 Blood Pressure [facility] 01-18-2022 14:13-0400 Body temperature 98.06 [degF] [facility] 01-18-2022 14:13-0400 BP/Pulse Patient Position [facility] 01-18-2022 14:13-0400 Diastolic blood pressure 82 mm[Hg] [facility] 01-18-2022 14:13-0400 Heart rate 59 /min [facility] 01-18-2022 14:13-0400 Mean blood pressure 98 mm[Hg] [facility]-18-2022 14:13-0400 Respiratory rate 16 /min [facility] 01-18-2022 14:13-0400 SaO2% (BldA) [Mass fraction] 98 % [facility] 01-18-2022 14:13-0400 Systolic blood pressure 131 mm[Hg] [facility] 12-21-2021 13:34-0400 Blood Pressure Location Nohemi Garcia [facility] 12-21-2021 13:34-0400 Body temperature 98.6 [degF] Nohemi Garcia [facility] 12-21-2021 13:34-0400 BP/Pulse Patient Position Nohemi Garcia [facility] 12-21-2021 13:34-0400 Diastolic blood pressure 85 mm[Hg] Nohemi Garcia [facility] 12-21-2021 13:34-0400 Heart rate 67 /min Nohemi Garcia [facility] 12-21-2021 13:34-0400 Mean blood pressure 101 mm[Hg] Nohemi Garcia [facility] 12-21-2021 13:34-0400 Respiratory rate 18 /min Nohemi Garcia [facility] 12-21-2021 13:34-0400 SaO2% (BldA) [Mass fraction] 93 % Nohemi Garcia [facility] 12-21-2021 13:34-0400 Systolic blood pressure 132 mm[Hg] Nohemi Garcia [facility] 12-21-2021 13:34-0400 Mean blood pressure 101 mm[Hg] Nohemi Garcia [facility] 11-30-2021 13:16-0400 Body temperature 98.24 [degF] [facility] 11-30-2021 13:16-0400 Diastolic blood pressure 79 mm[Hg] Senthil Verenice [facility] 11-30-2021 13:16-0400 Heart rate 78 /min [facility] 11-30-2021 13:16-0400 Mean blood pressure 98 mm[Hg] Senthil Caldera [facility] 11-30-2021 13:16-0400 SaO2% (BldA) [Mass fraction] 96 % [facility] 11-30-2021 13:16-0400 Systolic blood pressure 136 mm[Hg] Senthilleopoldo Caldera [facility] 11-30-2021 13:00-0400 Blood Pressure Location [facility] 11-30-2021 13:00-0400 Respiratory rate 16 /min Senthil Caldera [facility] 11-02-2021 11:53-0400 Blood Pressure Location Nohemi Garcia [facility] 11-02-2021 11:53-0400 Body temperature 98.06 [degF] Nohemi Garcia [facility] 11-02-2021 11:53-0400 BP/Pulse Patient Position Nohemi Garcia [facility] 11-02-2021 11:53-0400 Diastolic blood pressure 64 mm[Hg] Nohemi Garcia [facility] 11-02-2021 11:53-0400 Heart rate 64 /min Nohemi Garcia [facility] 11-02-2021 11:53-0400 Mean blood pressure 89 mm[Hg] Nohemi Garcia [facility] 11-02-2021 11:53-0400 Respiratory rate 17 /min Nohemi Garcia [facility] 11-02-2021 11:53-0400 SaO2% (BldA) [Mass fraction] 97 % Nohemi Garcia [facility] 11-02-2021 11:53-0400 Systolic blood pressure 140 mm[Hg] Nohemi Garcia [facility] 10-05-2021 13:46-0400 Body temperature 98.42 [degF] Senthil Caldera [facility] 10-05-2021 13:46-0400 Diastolic blood pressure 83 mm[Hg] Senthilleopoldo Caldera [facility] 10-05-2021 13:46-0400 Heart rate 69 /min Senthil Verenice [facility] 10-05-2021 13:46-0400 Mean blood pressure 104 mm[Hg] Senthil Caldera [facility] 10-05-2021 13:46-0400 SaO2% (BldA) [Mass fraction] 96 % Senthilleopoldo Caldera [facility] 10-05-2021 13:46-0400 Systolic blood pressure 146 mm[Hg] [facility] 09-07-2021 12:48-0400 Body temperature 98.6 [degF] [facility] 09-07-2021 12:48-0400 Diastolic blood pressure 70 mm[Hg] [facility] 09-07-2021 12:48-0400 Heart rate 72 /min [facility] 09-07-2021 12:48-0400 Mean blood pressure 83 mm[Hg] [facility]-07-2021 12:48-0400 SaO2% (BldA) [Mass fraction] 96 % [facility] 09-07-2021 12:48-0400 Systolic blood pressure 109 mm[Hg] [facility] 09-07-2021 12:00-0400 Heart rate 69 /min [facility] 09-07-2021 12:00-0400 SaO2% (BldA) [Mass fraction] 98 % [facility] 09-03-2021 00:20-0400 Body temperature 98.78 [degF] Carlos Martin [facility] 09-03-2021 00:20-0400 Diastolic blood pressure 80 mm[Hg] Carlos Martin [facility] 09-03-2021 00:20-0400 Heart rate 86 /min Carlos Martin [facility] 09-03-2021 00:20-0400 Respiratory rate 16 /min Carlos Martin [facility] 09-03-2021 00:20-0400 SaO2% (BldA) [Mass fraction] 95 % Carlos Salazar [facility] 09-03-2021 00:20-0400 Systolic blood pressure 146 mm[Hg] Carlos Salazar [facility] 08-10-2021 12:35-0400 Body temperature 98.06 [degF] Rickey Askew [facility] 08-10-2021 12:35-0400 Diastolic blood pressure 72 mm[Hg] Rickey Askew [facility] 08-10-2021 12:35-0400 Heart rate 77 /min Rickey Askew [facility] 08-10-2021 12:35-0400 Mean blood pressure 84 mm[Hg] Rickey Askew [facility] 08-10-2021 12:35-0400 Respiratory rate 12 /min Rickey Askew [facility] 08-10-2021 12:35-0400 SaO2% (BldA) [Mass fraction] 97 % Rickey Askew [facility] 08-10-2021 12:35-0400 Systolic blood pressure 108 mm[Hg] Rickey Askew [facility] 07-26-2021 10:27-0400 Body temperature 97.88 [degF] Senthil Caldera [facility] 07-26-2021 10:27-0400 Diastolic blood pressure 84 mm[Hg] Senthil Caldera [facility] 07-26-2021 10:27-0400 Heart rate 59 /min Senthil Caldera [facility] 07-26-2021 10:27-0400 Mean blood pressure 112 mm[Hg] Senthil Caldera [facility] 07-26-2021 10:27-0400 SaO2% (BldA) [Mass fraction] 97 % [facility] 07-26-2021 10:27-0400 Systolic blood pressure 169 mm[Hg] [facility] 07-26-2021 10:00-0400 Respiratory rate 16 /min [facility] 07-18-2021 12:18-0400 Body temperature 97.7 [degF] [facility] 07-18-2021 12:18-0400 Diastolic blood pressure 83 mm[Hg] [facility] 07-18-2021 12:18-0400 Heart rate 60 /min [facility] 07-18-2021 12:18-0400 Mean blood pressure 106 mm[Hg] [facility] 07-18-2021 12:18-0400 SaO2% (BldA) [Mass fraction] 98 % [facility] 07-18-2021 12:18-0400 Systolic blood pressure 152 mm[Hg] [facility] 07-18-2021 12:00-0400 Respiratory rate 16 /min [facility] 07-11-2021 10:20-0400 Body temperature 97.7 [degF] Gavino TABOR [facility] [place] Encounters Encounter Date Encounter Type Care Provider Facility Start: 01-30-2023 End: 01-31-2023 ambulatory Senthil Calder[place] [place]: 01-30-2023 End: 01-30-2023 Patient encounter procedure [facility] Start: 12-20-2022 End: 12-23-2022 Evaluation and management of inpatient Zaheer Sloan [place] [place] Start: 12-20-2022 End: 12-23-2022 Evaluation and management of inpatient Nic TomlinSHARONSAMANTHA [facility] Start: 12-19-2022 End: 12-20-2022 Emergency department patient visit David Tong [place] [place] Start: 12-19-2022 End: 12-20-2022 Emergency department patient visit David Tong [facility] Start: 12-17-2022 End: 12-17-2022 Emergency department patient visit Jeffery Murphy [place] [place] [place] Start: 12-17-2022 End: 12-17-2022 Emergency department patient visit Jeffery Murphy [facility] Start: 12-14-2022 End: 12-15-2022 ambulatory Sammythea QUEZADA Facility:CD:[id number] Start: 12-14-2022 End: 12-14-2022 Manual pelvic examination [facility] Start: 12-05-2022 ambulatory Lorie Wright y:CD:[id number] Start: 11-16-2022 End: 12-16-2022 ambulatory Zaheer Sloan Facility:CD:[id number] Start: 11-16-2022 End: 12-16-2022 In-Between Visit [facility] Start: 11-06-2022 End: 11-07-2022 ambulatory Sammythea QUEZADA Facility:CD:[id number] Start: 11-06-2022 End: 11-06-2022 Off-Site [facility] Start: 11-04-2022 End: 12-15-2022 ambulatory Sammythea QUEZADA [place] [place] Start: 11-01-2022 End: 11-04-2022 ambulatory Gavino Erickson [place] [place] [place] Start: 11-01-2022 End: 11-04-2022 Observation Mariia LOPEZ [facility] Start: 09-27-2022 End: 09-28-2022 ambulatory Nohemi Garcia [place] [place] Start: 09-25-2022 End: 09-26-2022 ambulatory Senthil Caldera [place] [place] Start: 09-25-2022 End: 09-25-2022 Patient encounter procedure Senthil Mgeligio [facility] Start: 09-08-2022 End: 09-08-2022 Emergency department patient visit Pedro Nava [place] [place] Start: 09-08-2022 End: 09-09-2022 ambulatory Senthil Mgeligio [place] [place] [place] Start: 08-01-2022 End: 08-02-2022 ambulatory Senthilleopoldo Hollidayeligio [place] [place] Start: 08-01-2022 End: 08-01-2022 Patient encounter procedure Senthil Caldera [facility] Start: 07-30-2022 End: 07-31-2022 ambulatory Senthilleopoldo Hollidayeligio [place] [place] [place] Start: 07-30-2022 End: 07-30-2022 Patient encounter procedure Senthil Caldera [facility] Start: 07-25-2022 End: 10-24-2022 ambulatory DO Senthilleopoldo Hollidayeligio [place] [place] Start: 07-25-2022 End: 10-23-2022 Recurring Senthil Caldera [facility] Start: 07-09-2022 End: 07-10-2022 ambulatory Senthil Mgeligio [place] [place] Start: 07-09-2022 End: 07-09-2022 Patient encounter procedure Senthil Caldera [facility] Start: 06-06-2022 End: 06-07-2022 ambulatory Senthil Caldera [place] [place] Start: 06-06-2022 End: 06-06-2022 Patient encounter procedure Senthil Caldera [facility] Start: 03-28-2022 End: 03-29-2022 ambulatory Senthil Caldera [place] [place] Start: 03-28-2022 End: 03-28-2022 Patient encounter procedure Senthil Caldera [facility] Start: 03-17-2022 End: 06-18-2022 ambulatory Nohemi Garcia [place] [place] Start: 03-17-2022 End: 06-17-2022 Recurring Nohemi Garcia [facility] Start: 01-18-2022 End: 01-18-2022 Patient encounter procedure Senthil Caldera [facility] Start: 01-02-2022 End: 09-03-2022 Recurring Senthil Caldera [facility] Start: 12-26-2021 End: 12-26-2021 Patient encounter procedure Senthil Caldera [facility] Start: 12-21-2021 End: 12-21-2021 Patient encounter procedure Nohemi Garcia [facility] Start: 11-30-2021 End: 11-30-2021 Patient encounter procedure Senthil Caldera [facility] Start: 11-27-2021 End: 11-27-2021 Patient encounter procedure Senthil Caldera [facility] Start: 11-25-2021 End: 02-23-2022 Recurring Nohemi Garcia [facility] Start: 11-02-2021 End: 11-02-2021 Patient encounter procedure Nohemi Garcia [facility] Start: 11-01-2021 End: 11-01-2021 Patient encounter procedure Senthil Caldera [facility] Start: 10-05-2021 End: 10-05-2021 Patient encounter procedure Senthil Caldera [facility] Start: 10-02-2021 End: 10-02-2021 Patient encounter procedure Senthil Caldera [facility] Start: 09-07-2021 End: 09-07-2021 Patient encounter procedure Senthil Caldera [facility] Start: 09-03-2021 End: 09-03-2021 Emergency department patient visit Carlos Salazar [facility] Start: 08-21-2021 End: 08-21-2021 Patient encounter procedure Senthil Caldera [facility] Start: 08-21-2021 End: 08-21-2021 Patient encounter procedure Senthil Caldera [facility] Start: 08-10-2021 End: 08-10-2021 Patient encounter procedure Rickey Askew [facility] Start: 08-07-2021 End: 08-07-2021 Patient encounter procedure Senthil Caldera [facility] Start: 07-26-2021 End: 07-26-2021 Patient encounter procedure Senthil Caldera [facility] Start: 07-26-2021 End: 07-26-2021 Patient encounter procedure Senthil Caldera [facility] Start: 07-25-2021 End: 08-18-2021 Pre-admission assessment Gavino TABOR [facility] Start: 07-18-2021 End: 07-18-2021 Patient encounter procedure Senthil Caldera [facility] Start: 07-11-2021 End: 07-11-2021 Patient encounter procedure Gavino Matt TABOR [facility] [place] Procedures Date Procedure Procedure Detail Performing Clinician Start: 07-04-2021 Core needle biopsy o f breast Gavino MARCOSRosemarie Comment on above: right Tonsillectomy and adenoidectomy Gavino MARCOSRosemarie Immunizations Immunization Date Immunization Notes Care Provider Fa cili 01-20-2021 influenza virus vaccine, unspecified formulation Gavino MARCOSRosemarie [facility] [place] Payers Date Payer Category Payer Medicare [id number] 2022 Medicare [id number] 2021 Private Health Insurance [id number] 1950 Unknown [id number] 2.16.8 [id number] 1950 Unknown [id number] 2.16.8 40.1.372406.3.579.2.727 1949 Unknown [id number] 2.16.8 40.1.133409.3.579.2.727 1949 Unknown [id number] 2.16.8 40.1.558258.3.579.2.727 1949 Unknown [id number] 2.16.8 40.1.328079.3.579.2.727 1949 Unknown [id number] 2.16.8 40.1.621136.3.579.2.727 1949 Unknown [id number] 2.16.8 40.1.155186.3.579.2.727 1949 Unknown [id number] 2.16.8 40.1.563055.3.579.2.727 1949 Unknown [id number] 2.16.8 40.1.404063.3.579.2.727 1949 Unknown [id number] 2.16.8 40.1.659423.3.579.2.727 1949 Unknown [id number] 2.16.8 40.1.037502.3.579.2.727 1949 Unknown [id number] 2.16.8 40.1.226251.3.579.2.727 1949 Unknown [id number] 2.16.8 40.1.335050.3.579.2.727 1949 Unknown [id number] 2.16.8 40.1.793732.3.579.2.727 1949 Unknown [id number] 2.16.8 40.1.233111.3.579.2.727 1949 Unknown [id number] 2.16.8 40.1.892539.3.579.2.727 1949 Unknown [id number] 2.16.8 40.1.942311.3.579.2.727 1949 Unknown [id number] 2.16.8 40.1.918728.3.579.2.727 1949 Unknown [id number] 2.16.8 40.1.818041.3.579.2.727 1949 Unknown [id number] 2.16.8 40.1.908743.3.579.2.727 1949 Unknown [id number] 2.16.8 40.1.163251.3.579.2.727 Social History Date Type Detail Facility Start: 07-04-2021 Tobacco smoking status Never s moked tobacco (finding) [facility] Tobacco smoking status Never Debbie [facility] Sex Assigned At Female [facility] Functional Status Date Assessment Result Facility 12-20-2022 Functional Status No [facility] 12-20-[address] [facility] 12-19-2022 Functional Status N/A [facility] 12-17-2022 Functional Status N/A [facility] 11-02-2022 Functional Status N/A [facility] 11-01-[address] [facility] Clinical Notes 07-11-2021 to 12-23-2022 Note Date & Type Note Facility 12-23-2022 Evaluation + Plan note Extrac yajaira from: Title:Discharge Note Author:Zaheer Sloan DO Date:12/23/22 Discharge To, Anticipated II - [facility] Transported by, Anticipated - Wheelchair van Discharge Diet(s): Regular (12/23/22 09:47:00) Prescriptions anastrozole 1 mg Tab, 1 mg= 1 tab(s), Oral, Daily, 11 refills Keflex 500 mg Cap, 500 mg= 1 cap(s), Oral, QID Kisqali (200 mg daily dose) oral tablet, See Instructions, 1 refills Vitamin B12 1000 mcg Tab, 1000 mcg= 1 tab(s), Oral, Daily, 11 refills Vitamin D3 2000 intl units oral tablet, 50 mcg= 1 tab(s), Oral, Daily, 4 refills Home acetaminophen 500 mg Tab, 1000 mg= 2 tab(s), Oral, q6hr lisinopril 10 mg Tab, 10 mg= 1 tab(s), Oral, Daily melatonin 5 mg oral tablet, 5 mg= 1 tab(s), Oral, Once a day (at bedtime), PRN simvastatin 40 mg Tab, 40 mg= 1 tab(s), Oral, Once a day (at bedtime) With When Contact Information Azar HANKS, Rickey Lynn, [facility] [address] [place] [address]- Additional Instructions: Antibiotic Medicine, Adult, [id number] Extracted from: Title:APSO Note Author:Zaheer Sloan DO e:12/22/22 1. UTI (urinary tract infect ion) (N39.0: Urinary tract infection, site not specified) Urine culture positive for E. coli, pansensitive We will continue Keflex as patient tolerated in the past We will continue to monitor for signs of improvement 2. Age-related cognitive decline (R41.81: Age-related cognitive decline) PT/OT Monitor labs IV fluids Likely will need placement as it was already attempted by nurse at Dr. Askew's office 3. History of breast cancer (Z85.3: Personal history of malignant neoplasm of breast) Continue kisqali Patient follows with Dr. Hernandez as outpatient 4. HTN (hypertension) (I10: Essential (primary) hypertension) Monitor Continue lisinopril 10 mg 5. Hypercholesteremia (E78.00: Pure hypercholesterolemia, unspecified) Continue statin Orders: Patient Specific Meds, Ardensqursula, Normal Patient Dose, Each, Oral, Daily, NOW, Start date 12/21/22 18:32:00 EDT, take medication daily for 3 weeks. Then 1 week off. Communication Order HgbA1c Occupational Therapy Additional Tx Occupational Therapy Evaluate Patient, Develop a Plan of Care and Implement Plan Physical Therapy Additional Tx Physical Therapy Evaluate Patient, Develop a Plan of Care and Implement Plan Referral to Resource Center Extracted from: Title:APSO Note Author:Zaheer Sloan DO e:12/21/22 1. UTI (urinary tract infect ion) (N39.0: Urinary tract infection, site not specified) Urine culture positive for E. coli, pansensitive We will continue Keflex as patient tolerated in the past We will continue to monitor for signs of improvement Ordered: Initial Hospital Care/Day Moderate 55 Minutes [id number] Sbsq Hospital Care/Day Straight Fwd 25 Minutes [id number] 2. Age-related cognitive decline (R41.81: Age-related cognitive decline) PT/OT Monitor labs IV fluids Likely will need placement as it was already attempted by nurse at Dr. Askew's office 3. History of breast cancer (Z85.3: Personal history of malignant neoplasm of breast) Continue kisqali Patient follows with Dr. Hernandez as outpatient 4. HTN (hypertension) (I10: Essential (primary) hypertension) Monitor Continue lisinopril 10 mg 5. Hypercholesteremia (E78.00: Pure hypercholesterolemia, unspecified) Continue statin Orders: heparin, 5,000 unit(s) = 1 mL, Injection, SubCutaneous, q8hrFT for 30 day(s), Stop date 01/19/23 23:59:00 EDT, Start date 12/21/22 0:00:00 EDT Sodium Chloride 0.9% intravenous solution 1,000 mL, 1,000 mL, IV, 75 mL/hr, Routine, Start date 12/20/22 18:34:00 EDT, 13.3 hour(s), Total volume (mL): 1,000, 86.7 kg, 2.01, m2 Ambulate with Assistance Automated Diff Basic Metabolic Panel CBC w/ Auto Diff eGFR HgbA1c Occupational Therapy Additional Tx Occupational Therapy Evaluate Patient, Develop a Plan of Care and Implement Plan Physical Therapy Additional Tx Physical Therapy Evaluate Patient, Develop a Plan of Care and Implement Plan Precautions Referral to Resource Center Resuscitation Status - Full Vital Signs Weight Extracted from: Title:ED Note Author:Pedro Nava DO Date: 1. UTI (urinary tract infect ion) (N39.0: Urinary tract infection, site not specified) 2. Age-related cognitive decline (R41.81: Age-related cognitive decline) 3. History of breast cancer (Z85.3: Personal history of malignant neoplasm of breast) 4. HTN (hypertension) (I10: Essential (primary) hypertension) 5. Hypercholesteremia (E78.00: Pure hypercholesterolemia, unspecified) Orders: Sodium Chloride 0.9% intravenous solution 1,000 mL, 1,000 mL, IV, 20 mL/hr, STAT, Start date 12/20/22 15:36:00 EDT, 50 hour(s), Total volume (mL): 1,000, 86.7 kg, 2.01, m2 Automated Diff Basic Metabolic Panel CBC w/ Auto Diff eGFR Extra Blue Tube Extra SST Tube Hepatic Function Panel Troponin 0 Hr. Troponin 3 Hr. UA With Cult Reflex Urine Culture XR Chest Single View Extracted from: Title:Admission H & P Author:Zaheer Sloan DO Date:12/20/22 XR Chest Single View 12/20/22 16:36:03 IMPRESSION: NO EVIDENCE OF ACTIVE CHEST DISEASE. CLINICAL HISTORY: Shortness of breath (SOB). COMPARISON: 12/19/2022. COMMENT: A portable. The heart is upper limits of normal in size. There is a large sized hiatal hernia. The mediastinum is otherwise unremarkable. The lungs appear clear. No infiltration nor pleural effusion is evident. No significant change is noted when compared to the prior exam. Ordering Provider: Pedro Nava Signed By: Zaheer Arriaga M.D. 12/20/22 16:16:58 Radiation Dose: Ka,r in mGy = na DAP = na Signed By: Zahere Arriaga M.D. 1. UTI (urinary tract infection) (N39.0: Urinary tract infection, site not specified) Urine culture from last night's visit growing greater than 100,000 gram-negative [facility]'s Continue antibiotics, will continue keflex due to pts hx of PNC allergy and allready took keflex Wait for culture sensitivities Ordered: Initial Hospital Care/Day Moderate 55 Minutes [id number] 2. Age-related cognitive decline (R41.81: Age-related cognitive decline) PT/OT Monitor labs IV fluids Patient will likely need placement placement was already being attempted by nurse at Dr. Askew's office 3. History of breast cancer (Z85.3: Personal history of malignant neoplasm of breast) -continue kisqali 4. HTN (hypertension) (I10: Essential (primary) hypertension) Monitor, continue lisinopril 10 mg 5. Hypercholesteremia (E78.00: Pure hypercholesterolemia, unspecified) Continue statin Orders: acetaminophen, 650 mg = 2 tab(s), Tab, Oral, q6hr PRN Pain, Routine, Start date 12/20/22 18:34:00 EDT, 12/20/22 18:34:00 EDT heparin, 5,000 unit(s) = 1 mL, Injection, SubCutaneous, BID for 30 day(s), Stop date 01/19/23 20:59:00 EDT, Routine, Start date 12/20/22 21:00:00 EDT, 12/20/22 18:34:00 EDT Sodium Chloride 0.9% intravenous solution 1,000 mL, 1,000 mL, IV, 75 mL/hr, Routine, Start date 12/20/22 18:34:00 EDT, 13.3 hour(s), Total volume (mL): 1,000, 86.7 kg, 2.01, m2 Ambulate with Assistance Basic Metabolic Panel CBC w/ Auto Diff Occupational Therapy Evaluate Patient, Develop a Plan of Care and Implement Plan Physical Therapy Evaluate Patient, Develop a Plan of Care and Implement Plan Precautions Regular Diet Resuscitation Status - Full Vital Signs Weight DVT PPx heparin twice daily Diet regular CODE STATUS full code Patient will be admitted under inpatient due to estimated length of stay greater than 2 midnights. Due to patient will need rehabilitation to maintain balance, improving gait and building on physical strength. Future Appointments Appointment Date:12/26/2022 02:45:00 PM Scheduled Provider:Senthil Caldera DO Location:[facility].ONCOLOGY Appointment Type:ONC Office Visit 15 (FT) Future Scheduled Tests Laboratory* CA 27 29 10/25/22 * CA 27 29 11/22/22 * CBC w/ Auto Diff 10/25/22 * CBC w/ Auto Diff 11/22/22 * Comprehensive Metabolic Panel 10/25/22 * Comprehensive Metabolic Panel 11/22/22 [facility]09[facility]03-[facility]Result Comment: Electronically Signed By: Zaheer Sloan DO.br\Date and Time Signed: 12/23/22 09:49 [id number] Hospital Discharge instructions Patient Education 12/23/2022 09:48:15 Antibiotic Medicine, Adult, Xxwm-lj-Xlxp Antibiotic Medicine, Adult Antibiotic medicines treat infections caused by a type of germ called bacteria. These medicines work by killing the bacteria that make you sick. You should take antibiotic medicines safely and only when needed. When do I need to take antibiotics? You may need antibiotics for: A urinary tract infection (UTI). Strep throat. A sinus infection caused by bacteria. Meningitis. This affects the spinal cord and brain. A bad lung infection. You may start your medicines while your doctor waits for your results on some tests. When your results come back, your doctor may change or stop your medicine based on your test results. When are antibiotics not needed? You do not need these medicines for most common illnesses, such as: A cold. The flu. A sore throat. Mucus being an odd color. Bronchitis. Sometimes, antibiotics are not needed for an infection caused by bacteria. Do not ask for these medicines, or take them, when they are not needed. How long should I take my antibiotic? You need to take all your medicine. Take your antibiotic medicine as told by your doctor. Do not stop taking the antibiotic even if you start to feel better. If you stop taking it too soon: You may feel sick again. Your infection may get harder to treat. Antibiotics need different amounts of time to work. Some treatments last just a few days. Some lastabout a week to 10 days. Sometimes, you may need to take antibiotics for a few weeks to fully treatyour infection. What if I miss a dose? Try not to miss a dose. If you miss a dose, call your doctor or pharmacist. Sometimes, it is okay to take the missed dose as soon as you can. Do not take an extra dose. What are the risks of taking antibiotics? Antibiotics can cause: Allergic attacks. A feeling like you may vomit (nausea). Yeast infections. Liver problems. These medicines can cause an infection called C. diff. This causes watery poop (diarrhea). This happens when antibiotics kill good germs in your gut. This lets C. diff grow. Tell your doctor right away if: You get watery poop while taking your antibiotic. You get watery poop after you stop your antibiotic. C. diff can happen weeks after you stop your medicine. You also have a risk of getting an infection in the future that antibiotics cannot treat (antibiotic-resistant infection). These infections can get very bad. Sometimes, they can be life-threatening. Do antibiotics affect control? control pills may not work. If you take control pills: Keep taking them as normal. Use a second form of control, such as a condom. Do this for as long as told by your doctor. What else should I know about taking antibiotics? You need to take these medicines exactly as told. Make sure to do these things: Take the right amount of medicine at the same time each day. Ask your doctor: ?How long to wait between doses. ?If you should take your medicine with food. ?If you should stay away from some foods, drinks, or medicines. ?What side effects you should watch for. Use only the medicines that your doctor said to use. Do not use medicines that were given to someone else. Drink a large glass of water when you take your medicine. Drink enough fluid to keep your pee (urine) pale yellow. Ask your pharmacist for a tool to measure your medicine. This may be a syringe, cup, or spoon. Throw out any extra medicine. Follow these instructions at home: Take umxz-xci-oivuyaf and prescription medicines as told by your doctor. Return to your normal activities as told by your doctor. Ask your doctor what activities are safe for you. Keep all follow-up visits as told by your doctor. This is important. Contact a doctor if: You feel worse. You have one of these after you start your medicine: ?New joint pain. ?New muscle aches. You have side effects from your medicine, such as: ?Stomach pain. ?Watery poop. ?Feeling like you may vomit. ?White patches in your mouth or throat. Get help right away if: You have a very bad allergic attack. If this happens, stop taking your medicine right away. You mayget: ?Hives. These are raised, itchy, red bumps on your skin. ?Skin rash. ?Trouble breathing. ?Breathing that has whistling sounds. ?Swelling on your body. ?A dizzy feeling. ?Vomiting. You have symptoms of liver problems. You may have: ?Dark pee, or pee that is the color of blood. ?Yellow skin. ?Easy bruising. ?Easy bleeding. You have very bad watery poop. You have cramps in your belly. You have a very bad headache. These symptoms may be an emergency. Do not wait to see if the symptoms will go away. Get medical help right away. Call your local emergency services (911 in the [place] Do not drive yourself to the hospital. Summary Antibiotics are used to treat infections caused by bacteria. Take these medicines safely and only when needed. Your doctor may change or stop your medicine based on your test results. Take all your medicine even when you feel better. This information is not intended to replace advice given to you by your health care provider. Make sure you discuss any questions you have with your health care provider. Document Revised: 01/26/2020 Document Reviewed: 01/26/2020 [employer] Patient Education 2022 [employer] Follow Up Care 12/20/2022 15:04:36 With:Azar HANKS, Rickey Lynn [facility] Address: [address] [place] [address]- When: Unknown [facility]08-31-2023 [facility]:Result Comment: Electronically Signed By: Zaheer Sloan DO.br\Date and Time Signed: 12/20/22 19:18 [id number] Evaluation + Plan note Extracted from: Title:ED Note Author:David Tong MD Date: 1. Generalized weakness (R53 .1: Weakness) 2. Frequent falls (R29.6: Repeated falls) 3. Anemia (D64.9: Anemia, unspecified) 4. Dehydration (E86.0: Dehydration) 5. Urinary tract infection (N39.0: Urinary tract infection, site not specified) Orders: cephalexin, 500 mg = 1 cap(s), Oral, QID, X 7 day(s), # 28 cap(s), Refills(s) 0, Pharmacy: [facility], 167.6, cm, 12/19/22 20:43:00 EDT, Height/Length Dosing, 87.1, kg, 12/19/22 20:43:00 EDT, Weight Dosing cephalexin, 500 mg = 1 cap(s), Cap, Oral, Once, Stop date 12/19/22 23:45:00 EDT, STAT, Start date 12/19/22 23:45:00 EDT, 12/19/22 23:45:00 EDT Sodium Chloride 0.9% intravenous solution, 1,000 mL, Soln-IV, IV, Once, Stop date 12/19/22 23:44:00 EDT, STAT, Start date 12/19/22 23:44:00 EDT, Infuse over 61, minute(s) Automated Diff Basic Metabolic Panel CBC w/ Auto Diff ED Cardiac Monitoring eGFR Hepatic Function Panel Magnesium Level Oxygen Saturation PT & PTT Saline Lock Insert Troponin 0 Hr. Troponin 3 Hr. Troponin 6 Hr. Troponin 9 Hr. UA With Cult Reflex Urine Culture XR Chest Single View Future Appointments Appointment Date:12/26/2022 02:45:00 PM Scheduled Provider:Senthil Caldera DO Location:[facility]ONCOLOGY Appointment Type:ONC Office Visit 15 ([facility]) Future Scheduled Tests Laboratory* CA 27 29 10/25/22 * CA 27 29 11/22/22 * CBC w/ Auto Diff 10/25/22 * CBC w/ Auto Diff 11/22/22 * Comprehensive Metabolic Panel 10/25/22 * Comprehensive Metabolic Panel 11/22/22 [facility]08-31-2023 Hospital Discharge instructions Patient Education 12/20/2022 00:37:19 Urinary Tract Infection, Adult, Blbx-hh-Ipud Urinary Tract Infection, Adult A urinary tract infection (UTI) is an infection of any part of the urinary tract. The urinary tractincludes: The kidneys. The ureters. The bladder. The urethra. These organs make, store, and get rid of pee (urine) in the body. What are the causes? This infection is caused by germs (bacteria) in your genital area. These germs grow and cause swelling (inflammation) of your urinary tract. What increases the risk? The following factors may make you more likely to develop this condition: Using a small, thin tube (catheter) to drain pee. Not being able to control when you pee or poop (incontinence). Being female. If you are female, these things can increase the risk: ?Using these methods to prevent : ?A medicine that kills sperm (spermicide). ?A device that blocks sperm (diaphragm). ?Having low levels of a female hormone (estrogen). ?Being . You are more likely to develop this condition if: You have genes that add to your risk. You are sexually active. You take antibiotic medicines. You have trouble peeing because of: ?A prostate that is bigger than normal, if you are male. ?A blockage in the part of your body that drains pee from the bladder. ?A kidney stone. ?A nerve condition that affects your bladder. ?Not getting enough to drink. ?Not peeing often enough. You have other conditions, such as: ?Diabetes. ?A weak disease-fighting system (immune system). ?Sickle cell disease. ?Gout. ?Injury of the spine. What are the signs or symptoms? Symptoms of this condition include: Needing to pee right away. Peeing small amounts often. Pain or burning when peeing. Blood in the pee. Pee that smells bad or not like normal. Trouble peeing. Pee that is cloudy. Fluid coming from the vagina, if you are female. Pain in the belly or lower back. Other symptoms include: Vomiting. Not feeling hungry. Feeling mixed up (confused). This may be the first symptom in older adults. Being tired and grouchy (irritable). A fever. Watery poop (diarrhea). How is this treated? Taking antibiotic medicine. Taking other medicines. Drinking enough water. In some cases, you may need to see a specialist. Follow these instructions at home: Medicines Take kshi-ncf-egkzwqv and prescription medicines only as told by your doctor. If you were prescribed an antibiotic medicine, take it as told by your doctor. Do not stop taking it even if you start to feel better. General instructions Make sure you: ?Pee until your bladder is empty. ?Do not hold pee for a long time. ?Empty your bladder after sex. ?Wipe from front to back after peeing or pooping if you are a female. Use each tissue one time whenyou wipe. Drink enough fluid to keep your pee pale yellow. Keep all follow-up visits. Contact a doctor if: You do not get better after 1 2 days. Your symptoms go away and then come back. Get help right away if: You have very bad back pain. You have very bad pain in your lower belly. You have a fever. You have chills. You feeling like you will vomit or you vomit. Summary A urinary tract infection (UTI) is an infection of any part of the urinary tract. This condition is caused by germs in your genital area. There are many risk factors for a UTI. Treatment includes antibiotic medicines. Drink enough fluid to keep your pee pale yellow. This information is not intended to replace advice given to you by your health care provider. Make sure you discuss any questions you have with your health care provider. Document Revised: 11/18/2020 Document Reviewed: 11/18/2020 [employer] Patient Education 2022 [employer] 12/20/2022 00:37:19 Anemia Anemia Anemia is a condition in which there is not enough red blood cells or hemoglobin in the blood. Hemoglobin is a substance in red blood cells that carries oxygen. When you do not have enough red blood cells or hemoglobin (are anemic), your body cannot get enoughoxygen and your organs may not work properly. As a result, you may feel very tired or have other problems. What are the causes? Common causes of anemia include: Excessive bleeding. Anemia can be caused by excessive bleeding inside or outside the body, including bleeding from the intestines or from heavy menstrual periods in females. Poor nutrition. Long-lasting (chronic) kidney, thyroid, and liver disease. Bone marrow disorders, spleen problems, and blood disorders. Cancer and treatments for cancer. HIV (human immunodeficiency virus) and AIDS (acquired immunodeficiency syndrome). Infections, medicines, and autoimmune disorders that destroy red blood cells. What are the signs or symptoms? Symptoms of this condition include: Minor weakness. Dizziness. Headache, or difficulties concentrating and sleeping. Heartbeats that feel irregular or faster than normal (palpitations). Shortness of breath, especially with exercise. Pale skin, lips, and nails, or cold hands and feet. Indigestion and nausea. Symptoms may occur suddenly or develop slowly. If your anemia is mild, you may not have symptoms. How is this diagnosed? This condition is diagnosed based on blood tests, your medical history, and a physical exam. In some cases, a test may be needed in which cells are removed from the soft tissue inside of a bone and looked at under a microscope (bone marrow biopsy). Your health care provider may also check your stool (feces) for blood and may do additional testing to look for the cause of your bleeding. Other tests may include: Imaging tests, such as a CT scan or MRI. A procedure to see inside your esophagus and stomach (endoscopy). A procedure to see inside your colon and rectum (colonoscopy). How is this treated? Treatment for this condition depends on the cause. If you continue to lose a lot of blood, you may need to be treated at a hospital. Treatment may include: Taking supplements of iron, vitamin B12, or folic acid. Taking a hormone medicine (erythropoietin) that can help to stimulate red blood cell growth. Having a blood transfusion. This may be needed if you lose a lot of blood. Making changes to your diet. Having surgery to remove your spleen. Follow these instructions at home: Take gfzx-hqp-cjqbxiu and prescription medicines only as told by your health care provider. Take supplements only as told by your health care provider. Follow any diet instructions that you were given by your health care provider. Keep all follow-up visits as told by your health care provider. This is important. Contact a health care provider if: You develop new bleeding anywhere in the body. Get help right away if: You are very weak. You are short of breath. You have pain in your abdomen or chest. You are dizzy or feel faint. You have trouble concentrating. You have bloody stools, black stools, or tarry stools. You vomit repeatedly or you vomit up blood. These symptoms may represent a serious problem that is an emergency. Do not wait to see if the symptoms will go away. Get medical help right away. Call your local emergency services (911 in the [place] Do not drive yourself to the hospital. Summary Anemia is a condition in which you do not have enough red blood cells or enough of a substance in your red blood cells that carries oxygen (hemoglobin). Symptoms may occur suddenly or develop slowly. If your anemia is mild, you may not have symptoms. This condition is diagnosed with blood tests, a medical history, and a physical exam. Other tests may be needed. Treatment for this condition depends on the cause of the anemia. This information is not intended to replace advice given to you by your health care provider. Make sure you discuss any questions you have with your health care provider. Document Revised: 02/20/2022 Document Reviewed: 03/15/2020 [employer] Patient Education 2022 [employer]. 12/20/2022 00:37:19 Dehydration, Adult, Urde-bm-Jugt Dehydration, Adult Dehydration is condition in which there is not enough water or other fluids in the body. This happens when a person loses more fluids than he or she takes in. Important body parts cannot work right without the right amount of fluids. Any loss of fluids from the body can cause dehydration. Dehydration can be mild, worse, or very bad. It should be treated right away to keep it from getting very bad. What are the causes? This condition may be caused by: Conditions that cause loss of water or other fluids, such as: ?Watery poop (diarrhea). ?Vomiting. ?Sweating a lot. ?Peeing (urinating) a lot. Not drinking enough fluids, especially when you: ?Are ill. ?Are doing things that take a lot of energy to do. Other illnesses and conditions, such as fever or infection. Certain medicines, such as medicines that take extra fluid out of the body (diuretics). Lack of safe drinking water. Not being able to get enough water and food. What increases the risk? The following factors may make you more likely to develop this condition: Having a long-term (chronic) illness that has not been treated the right way, such as: ?Diabetes. ?Heart disease. ?Kidney disease. Being 65 years of age or older. Having a disability. Living in a place that is high above the ground or sea (high in altitude). The thinner, dried air causes more fluid loss. Doing exercises that put stress on your body for a long time. What are the signs or symptoms? Symptoms of dehydration depend on how bad it is. Mild or worse dehydration Thirst. Dry lips or dry mouth. Feeling dizzy or light-headed, especially when you stand up from sitting. Muscle cramps. Your body making: ?Dark pee (urine). Pee may be the color of tea. ?Less pee than normal. ?Less tears than normal. Headache. Very bad dehydration Changes in skin. Skin may: ?Be cold to the touch (clammy). ?Be blotchy or pale. ?Not go back to normal right after you lightly pinch it and let it go. Little or no tears, pee, or sweat. Changes in vital signs, such as: ?Fast breathing. ?Low blood pressure. ?Weak pulse. ?Pulse that is more than 100 beats a minute when you are sitting still. Other changes, such as: ?Feeling very thirsty. ?Eyes that look hollow (sunken). ?Cold hands and feet. ?Being mixed up (confused). ?Being very tired (lethargic) or having trouble waking from sleep. ?Short-term weight loss. ?Loss of consciousness. How is this treated? Treatment for this condition depends on how bad it is. Treatment should start right away. Do not wait until your condition gets very bad. Very bad dehydration is an emergency. You will need to go to a hospital. Mild or worse dehydration can be treated at home. You may be asked to: ?Drink more fluids. ?Drink an oral rehydration solution (ORS). This drink helps get the right amounts of fluids and salts and minerals in the blood (electrolytes). Very bad dehydration can be treated: ?With fluids through an IV tube. ?By getting normal levels of salts and minerals in your blood. This is often done by giving salts and minerals through a tube. The tube is passed through your nose and into your stomach. ?By treating the root cause. Follow these instructions at home: Oral rehydration solution If told by your doctor, drink an ORS: Make an ORS. Use instructions on the package. Start by drinking small amounts, about cup (120 mL) every 5 10 minutes. Slowly drink more until you have had the amount that your doctor said to have. Eating and drinking Drink enough clear fluid to keep your pee pale yellow. If you were told to drink an ORS, finish theORS first. Then, start slowly drinking other clear fluids. Drink fluids such as: ?Water. Do not drink only water. Doing that can make the salt (sodium) level in your body get too low. ?Water from ice chips you suck on. ?Fruit juice that you have added water to (diluted). ?Low-calorie sports drinks. Eat foods that have the right amounts of salts and minerals, such as: ?Bananas. ?Oranges. ?Potatoes. ?Tomatoes. ?Spinach. Do not drink alcohol. Avoid: ?Drinks that have a lot of sugar. These include: ?High-calorie sports drinks. ?Fruit juice that you did not add water to. ?Soda. ?Caffeine. ?Foods that are greasy or have a lot of fat or sugar. General instructions Take jcjy-hqq-namujlm and prescription medicines only as told by your doctor. Do not take salt tablets. Doing that can make the salt level in your body get too high. Return to your normal activities as told by your doctor. Ask your doctor what activities are safe for you. Keep all follow-up visits as told by your doctor. This is important. Contact a doctor if: You have pain in your belly (abdomen) and the pain: ?Gets worse. ?Stays in one place. You have a rash. You have a stiff neck. You get angry or annoyed (irritable) more easily than normal. You are more tired or have a harder time waking than normal. You feel: ?Weak or dizzy. ?Very thirsty. Get help right away if you have: Any symptoms of very bad dehydration. Symptoms of vomiting, such as: ?You cannot eat or drink without vomiting. ?Your vomiting gets worse or does not go away. ?Your vomit has blood or green stuff in it. Symptoms that get worse with treatment. A fever. A very bad headache. Problems with peeing or pooping (having a bowel movement), such as: ?Watery poop that gets worse or does not go away. ?Blood in your poop (stool). This may cause poop to look black and tarry. ?Not peeing in 6 8 hours. ?Peeing only a small amount of very dark pee in 6 8 hours. Trouble breathing. These symptoms may be an emergency. Do not wait to see if the symptoms will go away. Get medical help right away. Call your local emergency services (911 in the [place] Do not drive yourself to the hospital. Summary Dehydration is a condition in which there is not enough water or other fluids in the body. This happens when a person loses more fluids than he or she takes in. Treatment for this condition depends on how bad it is. Treatment should be started right away. Do not wait until your condition gets very bad. Drink enough clear fluid to keep your pee pale yellow. If you were told to drink an oral rehydration solution (ORS), finish the ORS first. Then, start slowly drinking other clear fluids. Take erpo-too-jckwnbb and prescription medicines only as told by your doctor. Get help right away if you have any symptoms of very bad dehydration. This information is not intended to replace advice given to you by your health care provider. Make sure you discuss any questions you have with your health care provider. Document Revised: 11/19/2019 Document Reviewed: 11/19/2019 [employer] Patient Education 2022 [employer]. Follow Up Care 12/19/2022 20:39:35 With:Rickey Askew Address: [place] [address] [facility] (1) When:12/21/2022 [facility]08-28-2023 Hospital Discharge instructions Patient Education 12/17/2022 13:33:49 Lumbar Spine Fracture Lumbar Spine Fracture A lumbar spine fracture is a break in one of the bones of the lower back. Lumbar spine fractures can vary from mild to severe. The most severe types are those that: Cause the broken bones to move out of place (unstable). Injure or press on the spinal cord. During recovery, it is normal to have pain and stiffness in the lower back for weeks. What are the causes? This condition may be caused by: A fall. A car accident. A gunshot wound. A hard, direct hit to the back. What increases the risk? You are more likely to develop this condition if: You are in a situation that could result in a fall or other violent injury. You have a condition that causes weakness in the bones (osteoporosis). What are the signs or symptoms? The main symptom of this condition is severe pain in the lower back. If a fracture is complex or severe, there may also be: A misshapen or swollen area on the lower back. Limited ability to move an area of the lower back. Inability to empty the bladder (urinary retention). Loss of bowel or bladder control (incontinence). Loss of strength or sensation in the legs, feet, and toes. Inability to move (paralysis). How is this diagnosed? This condition is diagnosed based on: A physical exam. Symptoms and what happened just before they developed. The results of imaging tests, such as an X-ray, CT scan, or MRI. If your nerves have been damaged, you may also have other tests to find out the extent of the damage. How is this treated? Treatment for this condition depends on how severe the injury is. Most fractures can be treated with: A back brace. Bed rest and activity restrictions. Pain medicine. Physical therapy. Fractures that are complex, involve multiple bones, or make the spine unstable may require surgery.Surgery is done: To remove pressure from the nerves or spinal cord. To stabilize the broken pieces of bone. Follow these instructions at home: Medicines Take lwnz-wxh-ltprjpg and prescription medicines only as told by your health care provider. Do not drive or use heavy machinery while taking prescription pain medicine. If you are taking prescription pain medicine, take actions to prevent or treat constipation. Your health care provider may recommend that you: ?Drink enough fluid to keep your urine pale yellow. ?Eat foods that are high in fiber, such as fresh fruits and vegetables, whole grains, and beans. ?Limit foods that are high in fat and processed sugars, such as fried or sweet foods. ?Take an aaab-jlj-dhhfcra or prescription medicine for constipation. If you have a brace: Wear the back brace as told by your health care provider. Remove it only as told by your health care provider. Keep the brace clean. If the brace is not waterproof: ?Do not let it get wet. ?Cover it with a watertight covering when you take a bath or a shower. Activity Stay in bed (on bed rest) only as directed by your health care provider. Do exercises to improve motion and strength in your back (physical therapy), if your health care provider tells you to do so. Return to your normal activities as directed by your health care provider. Ask your health care provider what activities are safe for you. Managing pain, stiffness, and swelling If directed, put ice on the injured area: ?If you have a removable brace, remove it as told by your health care provider. ?Put ice in a plastic bag. ?Place a towel between your skin and the bag. ?Leave the ice on for 20 minutes, 2 3 times a day. General instructions Do not use any products that contain nicotine or tobacco, such as cigarettes and e-cigarettes. These can delay healing after injury. If you need help quitting, ask your health care provider. Do not drink alcohol. Alcohol can interfere with your treatment. Keep all follow-up visits as directed by your health care provider. This is important. ?Failing to follow up as recommended could result in permanent injury, disability, or long-lasting (chronic) pain. Contact a health care provider if: You have a fever. Your pain medicine is not helping. Your pain does not get better over time. You cannot return to your normal activities as planned or expected. Get help right away if: You have difficulty breathing. Your pain is very bad and it suddenly gets worse. You have numbness, tingling, or weakness in any part of your body. You are unable to empty your bladder. You cannot control your bladder or bowels. You are unable to move any body part (paralysis) that is below the level of your injury. You vomit. You have pain in your abdomen. Summary A lumbar spine fracture is a break in one of the bones of the lower back. The main symptom of this condition is severe pain in the lower back. If a fracture is complex, there may also be numbness, tingling, or paralysis in the legs. Treatment depends on how severe the injury is. Most fractures can be treated with a back brace, bedrest and activity restrictions, pain medicine, and physical therapy. Fractures that are complex, involve multiple bones, or make the spine unstable may require surgery. This information is not intended to replace advice given to you by your health care provider. Make sure you discuss any questions you have with your health care provider. Document Revised: 02/05/2022 Document Reviewed: 02/05/2022 [employer] Patient Education 2022 [employer]. Follow Up Care 12/17/2022 10:20:15 With:JOSÉ ANTONIO VARGAS Address: [address] [place] [id number] Business (1) When:12/20/2022 12:53:13 With:Gavino Erickson Address: [address] [place] [address] Business (1) When:12/20/2022 12:52:03 With:Rickey Askew Address: [address] [place] [address] Business (1) When:12/20/2022 12:51:59 [facility]08-28-2023 Evaluation + Plan noteExtracted from: Title:ED Note Author:Gui Scruggs PA-C te:12/17/22 Fall (W19.XXXA: Unspecified fall, initial encounter) Lumbar compression fracture (S32.000A: Wedge compression fracture of unspecified lumbar vertebra, initial encounter for closed fracture) Ordered: oxycodone, 5 mg = 1 tab(s), Oral, q6hr, X 3 day(s), # 15 tab(s), Refills(s) 0, Pharmacy: [facility], 168, cm, 12/17/22 10:29:00 EDT, Height/Length Dosing, 87, kg, 12/17/22 10:29:00 EDT, Weight Dosing Orders: oxycodone, 5 mg = 1 tab(s), Tab, Oral, Once, Stop date 12/17/22 10:21:00 EDT, STAT, Start date 12/17/22 10:21:00 EDT, 12/17/22 10:21:[address] Spine Lumbar w/o Contrast XR Hip 2-3 Views Right + Pelvis XR Spine Lumbosacral 2 or 3 Views Future Appointments Appointment Date:12/26/2022 02:45:00 PM Scheduled Provider:Senthil Caldera DO Location:FT.ONCOLOGY Appointment Type:ONC Office Visit 15 (FT) Future Scheduled Tests Laboratory* CA 27 29 10/25/22 * CA 27 29 11/22/22 * CBC w/ Auto Diff 10/25/22 * CBC w/ Auto Diff 11/22/22 * Comprehensive Metabolic Panel 10/25/22 * Comprehensive Metabolic Panel 11/22/22 [facility]07-16-2023 NoteFisher [facility] HospitalComment on above:Result Comment: Electronically Signed By: Trevor HANKS, Wyatt\.johnnie\Date and Time Signed: 11/04/22 12:37 [id number] Hospital Discharge instructions Patient Education 11/04/2022 12:28:31 Weakness Weakness Weakness is a lack of strength. You may feel weak all over your body (generalized), or you may feelweak in one part of your body (focal). Common causes of weakness include: Infection and disorders of the body's defense system (immune system). Physical exhaustion. Internal bleeding or other blood loss that results in a lack of red blood cells (anemia). Dehydration. An imbalance in mineral (electrolyte) levels, such as potassium. Chronic kidney or liver disease. Cancer. Other causes include: Some medicines or cancer treatment. Stress, anxiety, or depression. Heart disease, circulation problems, or stroke. Nervous system disorders. Thyroid disorders. Loss of muscle strength because of age or inactivity. Poor sleep quality or sleep disorders. The cause of your weakness may not be known. Some causes of weakness can be serious, so it is important to see your health care provider. Follow these instructions at home: Activity Rest as needed. Try to get enough sleep. Most adults need 7 8 hours of quality sleep each night. Talk to your health care provider about how much sleep you need. Do exercises, such as arm curls and leg raises, for 30 minutes at least 2 days a week or as told byyour health care provider. This helps build muscle strength. Consider working with a physical therapist or animal attendants and trainers who can develop an exercise plan to help you gain muscle strength. General instructions Take rase-qnu-twcpbdo and prescription medicines only as told by your health care provider. Eat a healthy, well-balanced diet. This includes: ?Proteins to build muscles, such as lean meats and fish. ?Fresh fruits and vegetables. ?Carbohydrates to boost energy, such as whole grains. Drink enough fluid to keep your urine pale yellow. Keep all follow-up visits. This is important. Contact a health care provider if: Your weakness does not improve or gets worse. Your weakness affects your ability to think clearly. Your weakness affects your ability to do your normal daily activities. Get help right away if: You develop sudden weakness, especially on one side of your face or body. You have chest pain. You have trouble breathing or shortness of breath. You have problems with your vision. You have trouble talking or swallowing. You have trouble standing or walking. You are light-headed or lose consciousness. These symptoms may be an emergency. Get help right away. Call 911. Do not wait to see if the symptoms will go away. Do not drive yourself to the hospital. Summary Weakness is a lack of strength. You may feel weak all over your body or just in one specific part of your body. Weakness can be caused by a variety of things. In some cases, the cause may be unknown. Rest as needed, and try to get enough sleep. Most adults need 7 8 hours of quality sleep each night. Eat a healthy, well-balanced diet. This information is not intended to replace advice given to you by your health care provider. Make sure you discuss any questions you have with your health care provider. Document Revised: 03/11/2022 Document Reviewed: 03/11/2022 [employer] Patient Education 2022 [employer]. Follow Up Care 11/01/2022 19:54:24 With:Hollis MERRILL Address: [address] [place] [phone] Business (1) When: Unknown Comments:Urinary retnetion w/dooley With:Gavino Erickson Address: [address] [place] [address]- Business (1) When: Unknown Comments:Call for followup appointment in 4 weeks for repeat pelvis xray With:Rickey Askew Address: [address] [place] [address]- Business (1) When: Unknown [facility]07-16-2023 Evaluation + Plan noteExtracted from: Title:Discharge Note Author:Trevor HANKS, Wyatt [place] ate:7/16/23 Stable Discharge To, Anticipated II - [facility] Discharged to - [facility] unit Discharge Diet(s): Regular (11/02/22 15:25:00) Prescriptions anastrozole 1 mg Tab, 1 mg= 1 tab(s), Oral, Daily, 11 refills Arimidex 1 mg Tab, 1 mg= 1 tab(s), Oral, Daily, 3 refills ergocalciferol 50,000 intl units Cap, 64464 International_Unit= 1 cap(s), Oral, q7day Kisqali (200 mg daily dose) oral tablet, See Instructions, 1 refills Kisqali (200 mg daily dose) oral tablet, See Instructions, 1 refills, Not taking Kisqali (400 mg daily dose) oral tablet, See Instructions, 1 refills ondansetron 8 mg Tab, 8 mg, Oral, q8hr, PRN, 3 refills, Not taking ribociclib 200 mg oral tablet, See Instructions, 11 refills Vitamin B12 1000 mcg Tab, 1000 mcg= 1 tab(s), Oral, Daily, 11 refills Home Fish Oil 1000 mg oral capsule, 1000 mg= 1 cap(s), Oral, Daily, Not taking furosemide 40 mg Tab, 40 mg= 1 tab(s), Oral, Daily Kisqali (200 mg daily dose), 200 mg, TID lisinopril 10 mg Tab, 10 mg= 1 tab(s), Oral, Daily simvastatin 40 mg Tab, 40 mg= 1 tab(s), Oral, Once a day (at bedtime) With When Contact Information Gavino Erickson [address] [place] [phone] [employer] (1) Additional Instructions: Call for followup appointment in 4 weeks for repeat pelvis xray Rickey Askew In [address] [place], [place] [address] (1) Additional Instructions: Addendum by Trevor HANKS, [facility] ad on November 04, 2022 12:36:52 EDT Of note patient was found to have Urinary retention. Dooley cath was placed. A follow-up with urology was made. She will need to follow up w/urology Extracted from: Title:Admission H & P Author:Mariia LOPEZ DO Date:11/02/22 1. Generalized weakness (R53 .1: Weakness) We will ask physical therapy and Occupational Therapy to evaluate patient. No obvious focal cause noted. We will check vitamin B12, TSH, folate levels, and RPR. 2. HTN (hypertension) (I10: Essential (primary) hypertension) Resume home medications once reconciled. Hydralazine iv prn. see orders. 3. Hypercholesteremia (E78.00: Pure hypercholesterolemia, unspecified) Resume home medications once reconciled. 4. History of breast cancer (Z85.3: Personal history of malignant neoplasm of breast) Supportive care 5. On deep vein thrombosis (DVT) prophylaxis (Z79.899: Other nursing home (current) drug therapy) SCD, enoxaparin Orders: acetaminophen, 650 mg = 2 tab(s), Tab, Oral, q6hr PRN Pain, Routine, Start date 11/02/22 1:21:00 EDT, 11/02/22 1:21:00 EDT diphenhydrAMINE, 25 mg = 1 cap(s), Cap, Oral, q6hr PRN Itching, Routine, Start date 11/02/22 1:21:00 EDT, 11/02/22 1:21:00 EDT enoxaparin, 40 mg = 0.4 mL, Injection, SubCutaneous, Daily, Routine, Start date 11/02/22 9:00:00 EDT, 11/02/22 1:21:00 EDT hydrALAZINE, 10 mg = 0.5 mL, Injection, IV Push, q6hr PRN Other (see comment), Routine, Start date 11/02/22 1:21:00 EDT, 11/02/22 1:21:00 EDT ketorolac, 15 mg = 0.5 mL, Injection, IV, q6hr PRN Pain for 5 day(s), Stop date 11/07/22 1:16:00 EDT, Routine, Start date 11/02/22 1:17:00 EDT, 11/02/22 1:17:00 EDT ondansetron, 4 mg = 2 mL, Injection, IV Push, q6hr PRN Nausea, Routine, Start date 11/02/22 1:21:00 EDT, 11/02/22 1:21:00 EDT promethazine, 12.5 mg = 0.5 mL, Injection, IV Push, q6hr PRN Nausea, Routine, Start date 11/02/22 1:21:00 EDT, 11/02/22 1:21:00 EDT Ambulate with Assistance Below the Knee Intermittent Pneumatic Compression Device Folate Level Notify Provider Vital Signs Notify Provider Vital Signs Occupational Therapy Evaluate Patient, Develop a Plan of Care and Implement Plan Oxygen Protocol Physical Therapy Evaluate Patient, Develop a Plan of Care and Implement Plan Place in Status Precautions Regular Diet Resuscitation Status - Full RPR with Conf Rfx Saline Lock Convert From IV TSH With T4fr Reflex Vital Signs Vitamin B12 Level Weight Anticipated stay less than 2 midnights. Patient will be observation status. Extracted from: Title:ED Note Author:Kelly Meredith DO Date :11/02/22 Generalized weakness (R53.1: Weakness) Multiple falls (R29.6: Repeated falls) Orders: Automated Diff Basic Metabolic Panel CBC w/ Auto Diff ECG 12 Lead Adult ED Physician consult Hospitalist for continued care eGFR Hepatic Function Panel Troponin 0 Hr. UA With Cult Reflex XR Chest Single View XR Sacrum and Coccyx Min 2 Views Future Appointments Appointment Date:11/22/2022 02:15:00 PM Scheduled Provider:Senthil Caldera DO Location:FT.ONCOLOGY Appointment Type:ONC Office Visit 15 (FT) Future Scheduled Tests Laboratory* CA 27 29 10/25/22 * CA 27 29 11/22/22 * CBC w/ Auto Diff 10/25/22 * CBC w/ Auto Diff 11/22/22 * Comprehensive Metabolic Panel 10/25/22 * Comprehensive Metabolic Panel 11/22/22 [facility]07-14-2023 NotePT Evaluation done this date. Pt. with 12/13 on AM-PAC this date. She is very resistant to movement due to pain. She is unable to stand even with attempts of max A. Will benefit from SNF.[facility]07-14-2023 NoteFishSaint Luke InstituteComment on above: Result Comment: Electronically Signed By: Mariia LOPEZ DO\Date and Time Signed: 11/02/22 01:35 [id number] Hospital Discharge instructions Follow Up Care 09/27/2022 14:06:46 With:Senthil Caldera Address: [address] [phone] Fax Business (1) When: Unknown Comments:f/u in 3 months. pet/ct prior to f/u. cont arimidex and kisquali. cbc, cmp and [id number] monthly. [facility]02-15-2023 Hospital Discharge instructions Follow Up Care 06/06/2022 13:40:28 With:Senthil Caldera Address: [address] [phone] Fax Business (1) When: Unknown Comments:cbc, cmp, [id number] in 4 weeks and prior to f/u in 8 weeks. f/u with chips screen tender. iron studies, b12, folate with next labs. [facility]12-07-2022 Hospital Discharge instructions Follow Up Care 03/28/2022 14:49:31 With:Senthil Caldera Address: [address] [phone] Fax Business (1) When: Unknown Comments:f/u in 2 months. pet/ct prior to f/ucbc, cmp, [id number], every 6 weeks. [facility]09-29-2022 Hospital Discharge instructions Follow Up Care 01/18/2022 14:52:57 With:Senthil Caldera Address: [address] [phone] Fax Business (1) When: Unknown Comments:raise kisquali to 400mg for 3wks on and 1 week off. f/u with or anthony in 2 months. cbc, cmp, [id number] prior to f/ucbc, cmp monthly onthis medicaztion cont arimidex. [facility]09-01-2022 Hospital Discharge instructions Follow Up Care 12/21/2021 14:19:38 With:Senthil Caldera Address: [address] [phone] Fax Business (1) When: Unknown Comments:continue Kisqali 200mg 3wks on, 1wk offcbc, cmp in 4wks and 8wksPET scan in Novfollow-up in 8wks with Dr. Hernandez after PET scan [facility]08-11-2022 Hospital Discharge instructions Follow Up Care 11/30/2021 13:55:25 With:Senthil Caldera Address: [address] [phone] Fax Business (1) When: Unknown Comments:re-start kisqali at 200mg daily x 3 weeks, then 1 week offcmp weekly x 4wksfollow-up with Dr. Hernandez in 4wkscbc, cmp at follow-up [facility]07-14-2022 Hospital Discharge instructions Follow Up Care 11/02/2021 12:27:30 With:Senthil Caldera Address: [address] [phone] Fax Business (1) When: Unknown Comments:cont arimidex. Hold kisquali for 3 wks, recheck cbc, cmp, prior to f/u. hold lasix. Send this note to Dr. Kofi sumner. [facility]06-16-2022 Hospital Discharge instructions Follow Up Care 10/05/2021 14:21:47 With:Senthil Caldera Address: [address] [phone] Fax Business (1) When: Unknown Comments:continue kisqalifollow-up in 1mocbc, cmp at follow-up [facility]05-19-2022 Hospital Discharge instructions Follow Up Care 09/07/2021 13:41:37 With:Senthil Caldera Address: [address] [phone] Fax Business (1) When: Unknown Comments:continue Kisqali follow-up in 1 mocbc, cmp, [id number] at follow-up [facility]05-15-2022 Evaluation + Plan noteExtracted from: Title:ED Note Author:Carlos Salazar DO Date :09/03/21 Acute urticaria (L50.8: Othe r urticaria) Orders: dexamethasone, 10 mg = 2.5 mL, Injection, Oral, Once, Stop date 09/03/21 0:29:00 EDT, STAT, Start date 09/03/21 0:29:00 EDT, 09/03/21 0:29:00 EDT diphenhydrAMINE, 25 mg = 1 cap(s), Cap, Oral, Once, Stop date 09/03/21 0:29:00 EDT, STAT, Start date 09/03/21 0:29:00 EDT, 09/03/21 0:29:00 EDT Future Appointments Appointment Date:09/07/2021 12:30:00 PM Scheduled Provider:Senthil Caldera DO Location:.ONCOLOGY Appointment Type:ONC Office Visit 15 (FT) [facility]05-15-2022 Hospital Discharge instructions Patient Education 09/03/2021 00:46:59 Hives Hives Hives (urticaria) are itchy, red, swollen areas on the skin. Hives can appear on any part of the body. Hives often fade within 24 hours (acute hives). Sometimes, new hives appear after old ones fade and the cycle can continue for several days or weeks (chronic hives). Hives do not spread from person to person (are not contagious). Hives come from the body's reaction to something a person is allergic to (allergen), something thatcauses irritation, or various other triggers. When a person is exposed to a trigger, his or her body releases a chemical (histamine) that causes redness, itching, and swelling. Hives can appear rightafter exposure to a trigger or hours later. What are the causes? This condition may be caused by: Allergies to foods or ingredients. Insect bites or stings. Exposure to pollen or pets. Contact with latex or chemicals. Spending time in sunlight, heat, or cold (exposure). Exercise. Stress. Certain medicines. You can also get hives from other medical conditions and treatments, such as: Viruses, including the common cold. Bacterial infections, such as urinary tract infections and strep throat. Certain medicines. Allergy shots. Blood transfusions. Sometimes, the cause of this condition is not known (idiopathic hives). What increases the risk? You are more likely to develop this condition if you: Are a woman. Have food allergies, especially to citrus fruits, milk, eggs, peanuts, tree nuts, or shellfish. Are allergic to: ?Medicines. ?Latex. ?Insects. ?Animals. ?Pollen. What are the signs or symptoms? Common symptoms of this condition include raised, itchy, red or white bumps or patches on your skin. These areas may: Become large and swollen (welts). Change in shape and location, quickly and repeatedly. Be separate hives or connect over a large area of skin. Sting or become painful. Turn white when pressed in the center (brandie). In severe cases, your hands, feet, and face may also become swollen. This may occur if hives develop deeper in your skin. How is this diagnosed? This condition may be diagnosed by your symptoms, medical history, and physical exam. Your skin, urine, or blood may be tested to find out what is causing your hives and to rule out other health issues. Your health care provider may also remove a small sample of skin from the affected area and examineit under a microscope (biopsy). How is this treated? Treatment for this condition depends on the cause and severity of your symptoms. Your health care provider may recommend using cool, wet cloths (cool compresses) or taking cool showers to relieve itching. Treatment may include: Medicines that help: ?Relieve itching (antihistamines). ?Reduce swelling (corticosteroids). ?Treat infection (antibiotics). An injectable medicine (omalizumab). Your health care provider may prescribe this if you have chronic idiopathic hives and you continue to have symptoms even after treatment with antihistamines. Severe cases may require an emergency injection of adrenaline (epinephrine) to prevent a life-threatening allergic reaction (anaphylaxis). Follow these instructions at home: Medicines Take and apply yeti-fwu-twgdvci and prescription medicines only as told by your health care provider. If you were prescribed an antibiotic medicine, take it as told by your health care provider. Do notstop using the antibiotic even if you start to feel better. Skin care Apply cool compresses to the affected areas. Do not scratch or rub your skin. General instructions Do not take hot showers or baths. This can make itching worse. Do not wear tight-fitting clothing. Use sunscreen and wear protective clothing when you are outside. Avoid any substances that cause your hives. Keep a journal to help track what causes your hives. Write down: ?What medicines you take. ?What you eat and drink. ?What products you use on your skin. Keep all follow-up visits as told by your health care provider. This is important. Contact a health care provider if: Your symptoms are not controlled with medicine. Your joints are painful or swollen. Get help right away if: You have a fever. You have pain in your abdomen. Your tongue or lips are swollen. Your eyelids are swollen. Your chest or throat feels tight. You have trouble breathing or swallowing. These symptoms may represent a serious problem that is an emergency. Do not wait to see if the symptoms will go away. Get medical help right away. Call your local emergency services (911 in the [place] Do not drive yourself to the hospital. Summary Hives (urticaria) are itchy, red, swollen areas on your skin. Hives come from the body's reaction to something a person is allergic to (allergen), something that causes irritation, or various other triggers. Treatment for this condition depends on the cause and severity of your symptoms. Avoid any substances that cause your hives. Keep a journal to help track what causes your hives. Take and apply cmef-mtj-ilztphm and prescription medicines only as told by your health care provider. Keep all follow-up visits as told by your health care provider. This is important. This information is not intended to replace advice given to you by your health care provider. Make sure you discuss any questions you have with your health care provider. Document Released: 04/08/2006 Document Revised: 10/22/2018 Document Reviewed: 10/22/2018 [employer] Patient Education 2020 [employer] Follow Up Care 09/03/2021 00:14:38 With:Rickey Askew Address: [place] [address]- Business (1) When:Within 3 Day(s) [facility]04-21-2022 Hospital Discharge instructions Follow Up Care 08/10/2021 13:38:09 With:Nohemi Garcia Address: [facility] [address] [place], [place] [address] [phone] Business (1) When: Unknown Comments:f/u 1 monthcont kisquali.cbc, cmp, [id number] at f/u. With:Senthil Caldera Address: [address] [phone] Fax Business (1) When: Unknown [facility]04-05-2022 Hospital Discharge instructions Follow Up Care 07/25/2021 15:46:11 With:Senthil Caldera Address: [address] [phone] Fax Business (1) When: Unknown Comments:f/u in 2 wks, cbc, cmp, [id number] at f/u. [facility]03-22-2022 Hospital Discharge instructions Follow Up Care 07/11/2021 14:05:16 With:Senthil Caldera Address: [place] [phone] Fax Business (1) When: Unknown Comments:echo and port sooni will call Dr. Tabor. f/u with me in 2 wks plan AC. Cbc, cmp, ceapet/ct prior to f/u. [facility] Future Appointments Appointment Date:07/18/2021 12:00:00 PM Scheduled Provider:Senthil Caldera DO Location:.ONCOLOGY Appointment Type:ONC Office Visit New 45 (FT) [facility] [place] Evaluation + Plan note Future Appointments Appointment Date:08/08/2021 10:00:00 AM Scheduled Provider: Location:.ULTRASOUND Appointment Type:US Breast (FT) Appointment Date:08/09/2021 10:30:00 AM Scheduled Provider: Location:[facility] Appointment Type:Surgical PAT FT Appointment Date:08/10/2021 12:30:00 PM Scheduled Provider:Setnhil Caldera DO Location:.ONCOLOGY Appointment Type:ONC Office Visit 15 (FT) Appointment Date:08/17/2021 08:00:00 AM Scheduled Provider: Location:[facility] Appointment Type:Surgery FT Appointment Date:08/22/2021 10:20:00 AM Scheduled Provider:Gavino TABOR MD Location:[facility] Appointment Type: Post Op 15 Future Scheduled Tests Laboratory* CA 27 29 08/09/21 * CBC w/ Auto Diff 08/09/21 * CBC w/ Auto Diff 07/26/21 * CEA 07/26/21 * Comprehensive Metabolic Panel 08/09/21 * Comprehensive Metabolic Panel 07/26/21 Radiology* US Perc Biopsy Lymph Node 08[facility]08/21 [facility] App[facility]ments Appointment Date:08/10/2021 12:30:00 PM Scheduled Provider:Senthil Caldera DO Location:FT.ONCOLOGY Appointment Type:ONC Office Visit 15 (FT) Diagnostic Tests Pending * CA 27 29 08/07/21 Future Scheduled Tests Laboratory* CBC w/ Auto Diff 07/26/21 * CEA 07/26/21 * Comprehensive Metabolic Panel 07/26/21 [facility] Appointments Appointment Date:08/10/2021 12:30:00 PM Scheduled Provider:Senthil Caldera DO Location:.ONCOLOGY Appointment Type:ONC Office Visit 15 (FT) Future Scheduled Tests Laboratory* CBC w/ Auto Diff 07/26/21 * CEA 07/26/21 * Comprehensive Metabolic Panel 07/26/21 [facility] Appointments Appointment Date:09/07/2021 12:30:00 PM Scheduled Provider:Senthil Caldera DO Location:.ONCOLOGY Appointment Type:ONC Office Visit 15 (FT) Future Scheduled Tests Laboratory* CBC w/ Auto Diff 08/24/21 * CEA 08/24/21 * Comprehensive Metabolic Panel 08/24/21 [facility] App[facility]ments Appointment Date:08/21/2021 02:00:00 PM Scheduled Provider: Location:.ONCOLOGY Appointment Type:ONC Patient Education - 1hr (FT) Appointment Date:09/07/2021 12:30:00 PM Scheduled Provider:Senthil Caldera DO Location:.ONCOLOGY Appointment Type:ONC Office Visit 15 (FT) Future Scheduled Tests Laboratory* CBC w/ Auto Diff 09/07/21 * CEA 09/07/21 * Comprehensive Metabolic Panel 09/07/21 [facility] Appointments Appointment Date:09/07/2021 12:30:00 PM Scheduled Provider:Senthil Caldera DO Location:FT.ONCOLOGY Appointment Type:ONC Office Visit 15 ([facility]) [facility] Future Appointments Appointment Date:10/05/2021 01:30:00 PM Scheduled Provider:Senthil Caldera DO Location:FT.ONCOLOGY Appointment Type:ONC Office Visit 15 (FT) Future Scheduled Tests Laboratory* CA 27 29 10/08/21 * CBC w/ Auto Diff 10/08/21 * Comprehensive Metabolic Panel 10/08/21 [facility] Appointments Appointment Date:10/05/2021 01:30:00 PM Scheduled Provider:Senthil Caldera DO Location:FT.ONCOLOGY Appointment Type:ONC Office Visit 15 (FT) Diagnostic Tests Pending * CA 27 29 10/02/21 [facility] Future Appointments Appointment Date:11/02/2021 01:45:00 PM Scheduled Provider:Senthil Caldera DO Location:FT.ONCOLOGY Appointment Type:ONC Office Visit 15 (FT) Future Scheduled Tests Laboratory* CA 27 29 11/02/21 * CBC w/ Auto Diff 11/02/21 * Comprehensive Metabolic Panel 11/02/21 [facility] Appointments Appointment Date:11/02/2021 11:15:00 AM Scheduled Provider:Nohemi Garland Location:FT.ONCOLOGY Appointment Type:ONC Office Visit 15 (FT) Diagnostic Tests Pending * CA 27 29 11/01/21 [facility] Future Appointments Appointment Date:11/30/2021 01:15:00 PM Scheduled Provider:eSnthil Caldera DO Location:[facility] Appointment Type:ONC Office Visit 15 (FT) Future Scheduled Tests Laboratory* CBC w/ Auto Diff 12/03/21 * [facility] Appointment Date:11/30/2021 01:15:00 PM Scheduled Provider:Senthil Caldera DO Location:[facility] Appointment Type:[facility]C Office Visit 15 ([facility] Appointment Date:12/21/2021 01:15:00 PM Scheduled Provider:Senthil Caldera DO Location:[facility] Appointment Type:ONC Office Visit 15 (FT) Future Scheduled Tests Laboratory* CBC w/ Auto Diff 12/21/21 * Comprehensive Metabolic [facility] Appointment Date:01/18/2022 02:15:00 PM Scheduled Provider:Senthil Caldera DO Location:.[facility]COL[facility] Appointment Type:ONC Office Visit 15 (FT) Future Scheduled Tests Laboratory* CBC w/ Auto Diff 12/28/21 * CBC w/ Auto Diff 01/04/22 * CBC w/ Auto Diff 01/11/22 * CBC w/ Auto Diff 01/18/22 * CBC w/ Auto Diff 01/25/22 * Comprehensive Metabolic Panel 12/28/21 * Comprehensive Metabolic Panel 01/04/22 * Comprehensive Metabolic Panel 01/11/22 * Comprehensive Metabolic Panel 01/18/22 * Comprehensive Metabolic [facility] Appointment Date:01/18/2022 02:15:00 PM Scheduled Provider:Senthil Caldera DO Location:[facility] Appointment Type:ONC Office Visit 15 (FT) Future Scheduled Tests Laboratory* CBC w/ Auto Diff 01/04/22 * CBC w/ Auto Diff 01/11/22 * CBC w/ Auto Diff 01/18/22 * CBC w/ Auto Diff 01/25/22 * Comprehensive Metabolic Panel 01/04/22 * Comprehensive Metabolic Panel 01/11/22 * Comprehensive Metabolic Panel 01/18/22 * Comprehensive Metabolic Panel [facility]25/22 [facility] Appointment Date:03/28/2022 02:15:00 PM Scheduled Provider:Senthil Caldera DO Location:[facility] Appointment Type:ONC Office Visit 15 (FT) Future Scheduled Tests Laboratory* CBC w/ Auto Diff 01/23/22 * CBC w/ Auto Diff 01/30/22 * CBC w/ Auto Diff 02/06/22 * CBC w/ Auto Diff 02/13/22 * Comprehensive Metabolic Panel 01/23/22 * Comprehensive Metabolic Panel 01/30/22 * Comprehensive Metabolic Panel 02/06/22 * Comprehensive Metabolic Panel 02/13/22 [facility] Appointment Date:03/28/2022 02:15:00 PM Scheduled Provider:Senthil Caldera DO Location:[facility] Appointment Type:ONC Office Visit 15 (FT) Future Scheduled Tests Laboratory* CBC w/ Auto Diff 03/08/22 * CBC w/ Auto Diff 04/05/22 * Comprehensive Metabolic Panel 03/08/22 * Comprehensive Metabolic Panel 04/05/22 [facility] Appointment Date:06/06/2022 01:15:00 PM Scheduled Provider:Senthil Caldera DO Location:[facility] Appointment Type:ONC Office Visit 15 ([facility] App[facility] Appointment Date:08/01/2022 02:00:00 PM Scheduled Provider:Senthil Caldera DO Location:[facility] Appointment Type:ONC Office Visit 15 (FT) Future Scheduled Tests Laboratory* CBC w/ Auto Diff 06/06/22 * Comprehensive Metabolic Panel 06/06/22 [facility] App[facility] Appointment Date:08/01/2022 02:00:00 PM Scheduled Provider:Senthil Caldera DO Location:[facility] Appointment Type:ONC Office Visit 15 (FT) Diagnostic Tests Pending * CA 27 29 07/09/22 Future Scheduled Tests Laboratory* CA 27 29 07/31/22 * CBC w/ Auto Diff 07/31/22 * Comprehensive Metabolic Panel 07/31/22 [facility] Appointment Date:08/01/2022 02:00:00 PM Scheduled Provider:Senthil Caldera DO Location:[facility] Appointment Type:ONC Office Visit 15 (FT) Diagnostic Tests Pending * CA 27 29 07/30/22 [facility] App[facility]ments Appointment Date:09/27/2022 01:45:00 PM Scheduled Provider:Nohemi Garland Location:[facility] Appointment Type:ONC Office Visit 30 (FT) Future Scheduled Tests Laboratory* CA 27 29 08/29/22 * CA 27 29 09/26/22 * CBC w/ Auto Diff 08/29/22 * CBC w/ Auto Diff 09/26/22 * Comprehensive Metabolic Panel 08/29/22 * Comprehensive Metabolic Panel 09/26/22 * Ferritin 08/29/22 * Folate Level 08/29/22 * Iron Level 08/29/22 * Iron Percent Saturation 08/29/22 * Transferrin 08/29/22 * Vitamin B12 Level 08/29/22 [facility] App[facility]ments Appointment Date:09/27/2022 01:45:00 PM Scheduled Provider:Nohemi Garland Location:[facility] Appointment Type:ONC Office Visit 30 (FT) Diagnostic Tests Pending * CA 27 29 09/25/22 [facility] Future App[facility]ments Appointment Date:11/22/2022 02:15:00 PM Scheduled Provider:Senthil Caldera DO Location:[facility] Appointment Type:ONC Office Visit 15 (FT) Future Scheduled Tests Laboratory* CA 27 29 10/25/22 * CA 27 29 11/22/22 * CBC w/ Auto Diff 10/25/22 * CBC w/ Auto Diff 11/22/22 * Comprehensive Metabolic Panel 10/25/22 * Comprehensive Metabolic Panel 11/22/22 [facility] App[facility]ments Appointment Date:12/26/2022 02:45:00 PM Scheduled Provider:Senthil Caldera DO Location:[facility] Appointment Type:ONC Office Visit 15 (FT) Future Scheduled Tests Laboratory* CA 27 29 10/25/22 * CA 27 29 11/22/22 * CBC w/ Auto Diff 10/25/22 * CBC w/ Auto Diff 11/22/22 * Comprehensive Metabolic Panel 10/25/22 * Comprehensive Metabolic Panel 11/22/22 [facility] + Plan note Future Appointments Appointment Date:05/01/2023 02:15:00 PM Scheduled Provider:Senthil Caldera DO Location:[facility] Appointment Type:ONC Office Visit 30 (FT) Future Scheduled Tests Laboratory* CA 27 29 03/02/23 * CA 27 29 04/01/23 * CA 27 29 05/02/23 * CBC w/ Auto Diff 03/02/23 * CBC w/ Auto Diff 04/01/23 * CBC w/ Auto Diff 05/02/23 * Comprehensive Metabolic Panel 03/02/23 * Comprehensive Metabolic Panel 04/01/23 * Comprehensive Metabolic Panel [facility]02/23 [facility] No data available for this section [facility] Discharge instructions No data available for this section [facility] [place] [facility] note No data available for this section [facility] Summary Purpose Family History No Family History Records Found No data available for this section No Family History Records Found Advance Directives No Advanced Directives Records FoundNo Advanced Directives Records Found Additional Source Comments INFORMATION SOURCE (unrecogn ized section and content) DATE CREATED AUTHOR 09/08/2021 [facility] DATE CREATED AUTHOR AUTHOR'S ORGANIZ ATION 02/09/2023 [facility] Care Team (unrecognized sect ion and content) Personnel Name: Rickey Askew MD Address: [address] [place] [address] Personnel Name: Rickey Askew MD Address: [address] [place] [address] Personnel Name: Rickey Askew MD Address: [address] [place] [address] Personnel Name: Rickey Askew MD Address: [address] [place] [address] Personnel Name: Rickey Askew MD Address: [address] [place] [address] Name: Eva Beard Personnel Name: Rickey Askew MD Address: [address] [place] [address] Name: Eva Beard Personnel Name: Rickey Askew MD Address: [address] [place] [address] Name: Eva Beard Personnel Name: Rickey Askew MD Address: [address] [place] [address] Name: Eva Beard Personnel Name: Rickey Askew MD Address: [address] [place] [address] Name: Eva Beard Personnel Name: Rickey Askew MD Address: Address: [address] [place] [address] Name: Eva Beard Personnel Name: Rickey Askew MD Address: Address: [address] [place] [phone]- [place] Name: Eva Beard Personnel Name: Rickey Askew MD Address: Address: [address] [place] [address]- [place] Name: Eva Beard Personnel Name: Rickey Askew MD Address: Address: [address] [place] [phone]- [place] Name: Eva Beard Personnel Name: Rickey Askew MD Address: Address: [address] [place] [address]- [place] Name: Eva Beard Personnel Name: Rickey Askew MD Address: Address: [address] [place] [phone]- [place] Name: Eva Beard Personnel Name: Rickey Askew MD Address: Address: [address] [place] [address]- Name: Eva Beard Personnel Name: Rickey Askew MD Address: Address: [address] [place] [id number]- [place] Name: Eva Beard Personnel Name: Rickey Askew MD Address: Address: [address] [place] [address]- [place] Name: Eva Beard Personnel Name: Rickey Askew MD Address: Address: [address] [place] [address]- Name: Eva Beard Personnel Name: Rickey Askew MD Address: Address: [address] [place] [id number]- Name: Eva Beard Personnel Name: Rickey Askew MD Address: Address: [address] [place] [address]- [place] Name: Eva Beard Personnel Name: Rickey Askew MD Address: Address: [address] [place] [address]- [place] Name: Eva Beard Personnel Name: Rickey Askew MD Address: Address: [address] [place] [address]- [place] Name: Eva Beard Personnel Name: Rickey Askew MD Address: Address: [address] [place] [address]- [place] Name: Eva Beard Personnel Name: Rickey Askew MD Address: Address: [address] [place] [address] Name: Eva Beard Personnel Name: Rickey Askew MD Address: Address: [address] [place] [address] Name: Eva Beard Personnel Name: Rickey Askew MD Address: Address: [address] [place] [address] Name: Eva Beard FOR RECORDS PERTAINING TO PATIENTS WHO ARE OR HAVE BEEN ENROLLED IN A CHEMICAL DEPENDENCY/SUBSTANCEABUSE PROGRAM, SOME INFORMATION MAY BE OMITTED. This clinical summary was aggregated from multiple sources. Caution should be exercised in using it in the provision of clinical care. This summary normalizes information from multiple sources, and as a consequence, information in this document may materially change the coding, format and clinical context of patient data. In addition, data may be omitted in some cases. CLINICAL DECISIONS SHOULD BE BASED ON THE PRIMARY CLINICAL RECORDS. [facility] [employer] [facility]. provides no warranty or guarantee of the accuracy or completeness of information in this document.
[2023-05-01 09:10] LABS: Basophils Absolute Auto 0.1 10^3/uL (0.0-0.1); Basophils Percent Auto 2.6 % (0.2-2.0); Eosinophils Absolute Auto 0.2 10^3/uL (0.0-0.7); Hematocrit 28.2 % (36.0-48.0); Hemoglobin 9.2 g/dL (12.0-16.0); Immature Granulocytes Abs Auto 0.02 10^3/uL (0.00-0.03); Immature Granulocytes Pct Auto 0.5 % (0.0-0.5); Lymphocytes Percent Auto 46.7 % (20.5-60.0); Mean Corpuscular HGB Conc 32.6 g/dL (29.9-35.2); Mean Corpuscular Hemoglobin 34.5 pg (26.7-34.0); Mean Corpuscular Volume 105.6 fL (81.0-99.0); Mean Platelet Volume 9.4 fL (9.5-13.5); Monocytes Absolute Auto 0.3 10^3/uL (0.3-0.8); Monocytes Percent Auto 6.6 % (1.7-12.0); Neutrophils Absolute Auto 1.7 10^3/uL (1.4-6.5); Neutrophils Percent Auto 39.6 % (43.0-75.0); Platelet Count 138 10^3/uL (150-450); Red Blood Count 2.67 10^6/uL (4.20-5.40); Red Cell Distribution Width 13.2 % (11.0-15.0); White Blood Count 4.2 10^3/uL (4.0-11.0)
[2023-05-01 09:28] LABS: Alanine Aminotransferase 19 U/L (14-59); Albumin Globulin Ratio 0.7; Albumin Level 2.5 g/dL (3.4-5.0); Alkaline Phosphatase 86 U/L (46-116); Anion Gap 10.1; Aspartate Amino Transferase 12 U/L (15-37); BUN Creatinine Ratio 27.5; Bilirubin Total 0.3 mg/dL (0.2-1.0); Calcium 8.8 mg/dL (8.5-10.1); Carbon Dioxide 23.1 mmol/L (21.0-32.0); Chloride 110 mmol/L (98-107); Estimated GFR (African America 44 (>=60); Estimated GFR (Non-African Ame 36 (>=60); Globulin 3.4 g/dL; Glucose 108 mg/dL (74-106); Potassium 4.2 mmol/L (3.5-5.1); Sodium 139 mmol/L (136-145); Total Protein 5.9 g/dL (6.4-8.2)
== END 2023-05-01 08:26 | disposition home or self-care (01) ==
LOC: LAB 08:25
PROVIDERS: PCP Family Medicine; Visit Provider Family Medicine
DX: Z51.81 Encounter for therapeutic drug level monitoring (principal); Z85.3 Personal history of malignant neoplasm of breast
CPT/HCPCS: 36415; 80053; 85025; 86300

== ENCOUNTER 2023-05-24 01:46 | Outpatient (REF) | payer OTHER, SELFPAY ==
--- OUTSIDE RECORDS SUMMARY | 2023-05-24 01:52 | XMS_ITS | CCD ---
Author Name Unknown Address [address] [place] [address] Organization [facility] Care Team Providers Care Hat And Cap Opener Name Role Phone Rickey Askew Primary Care Physician [phone] Eva Beard Unavailable Unavailable Laishaicz, Senthil Attending Unavailable Adamowicz, Senthil Referring Unavailable Adamowicz, DO Senthil Admitting Unavailabl e Adamowicz, Senthil Attending Unavailable Adamowicz, Senthil Admitting Unavailable Adamowicz, Senthil Attending Unavailable Adamowicz, Senthil Admitting Unavailable Adamowicz, Senthil Attending Unavailable PILAR, Sammy Attending Unavailable Adamowicz, Senthil Attending Unavailable Adamowicz, Senthil Admitting Unavailable Adamowicz, Senthil Attending Unavailable Adamowicz, Senthil Admitting Unavailable Zaheer Sloan Admitting Unavailable Zaheer Sloan Attending Unavailable Wyatt Murray Attending Unavailable Mariia LOPEZ Admitting Unavailable Erickson, Gavino T Consulting Unavailable Erickson, Gavino T Consulting Unavailable MARCEL ALVAREZ Consulting Unavailable Erickson, Gavino T Consulting Unavailable Erickson, Gavino T Consulting Unavailable Erickson, Gavino T Consulting Unavailable Erickson, Gavino T Consulting Unavailable Erickson, Gavino T Consulting Unavailable Erickson, Gavino T Consulting Unavailable Erickson, Gavino T Consulting Unavailable Erickson, Gavino T Consulting Unavailable Erickson, Gavino T Consulting Unavailable Lorie Slater Attending Unavailable PILAR, Sammy Attending Unavailable PILAR, Sammy Attending Unavailable Pedro Nava Attending Unavailable Jeffery Murphy Attending Unavailable Ran, David Attending Unavailable Nohemi Garcia Attending Unavailable Adamowicz, Senthil Attending Unavailable Adamowicz, Senthil Attending Unavailable Adamowicz, Senthil Attending Unavailable Adamowicz, Senthil Admitting Unavailable Allergies Allergy Classification Reported Allergen(s) Allergy Type Date of Onset Reaction(s) Facility (20 sources) Bee/Wasp/Ant venom; Translations: [Bee Stings] Drug allergy Dyspnea (finding) [facility] Work Phone: (20 sources) Penicillins; Translations: [penicillins] Drug allergy Dyspnea (finding) [facility] Work Phone: (20 sources) Sulfonamides (Antibiotic); Translations: [sulfa drugs] Drug allergy Dyspnea (finding) [facility] Work Phone: Medications Current Medications Medication Drug Class(es) Dates Sig (Normalized) Sig (Original) acetaminophen 500 mg oral tablet (7 sources) Start: 11-13-2022 take 2 tablets by [...] pharmacy (Rx) Start Date: 10/29/22 Status: Ordered busPIRone hydrochloride 5 mg oral tablet (1 source) Start: 05-01-2023 take 1 tablet by mouth twice daily busPIRone 5 mg Tab 5 mg = 1 tab(s), Oral, BID, # 270 tab(s), Refills(s) 0 Start Date: 05/01/23 Status: Ordered cephalexin 500 mg oral capsule (2 sources) Cephalosporin Antibacterial Start: 12-19-2022 End: 12-26-2022 take 1 capsule by mouth four times daily Keflex 500 mg Cap 500 mg = 1 cap(s), Oral, QID, X 7 day(s), # 28 cap(s), Refills(s) 0, Pharmacy: [facility], 167.6, cm, 12/19/22 20:43:00 EDT, Height/Length Dosing, 87.1, kg, 12/19/22 20:43:00 EDT, Weight Dosing Start Date: 12/19/22 Stop Date: 12/26/22 Status: Ordered Cinnamon Preparation (19 sources) Non-Standardized Food Allergenic Extract Start: 09-07-2021 Cinnamon 1,000 mg, Daily, Refills(s) 0 Start Date: 09/07/21 Status: Ordered docusate sodium 100 mg oral tablet (1 source) Start: 05-01-2023 take 100 mg by mouth twice daily Colace 100 mg, Oral, BID, Refills(s) 0 Start Date: 05/01/23 Status: Ordered Fish Oils (20 sources) Start: [...] Refills(s) 0 Start Date: 09/07/21 Status: Ordered Claritin (1 source) Start: 05-01-2023 Claritin 10 mg, Refills(s) 0 Start Date: 05/01/23 Status: Ordered melatonin 5 mg oral tablet (7 sources) Start: 11-13-2022 take 1 tablet by [...] Nausea, # 30 tab(s), Refills(s) 3, Pharmacy: [facility] #[facility], 162.5, cm, 08/10/21 12:38:00 EDT, Height/Length Dosing, 96.5, kg, 08/10/21 12:38:00 EDT, Weight Dosing Start Date: 08/24/21 Status: Ordered oxyCODONE hydrochloride 5 mg oral tablet (1 source) Opioid Agonist Start: 12-17-2022 End: 12-20-2022 take 1 tablet by mouth every six hours oxyCODONE 5 mg Tab 5 mg = 1 tab(s), Oral, q6hr, X 3 day(s), # 15 tab(s), Refills(s) 0, Pharmacy: [facility], 168, cm, 12/17/22 10:29:00 EDT, Height/Length Dosing, 87, kg, 12/17/22 10:29:00 EDT, Weight Dosing Start Date: 12/17/22 Stop Date: 12/20/22 Status: Ordered Miralax (1 source) Osmotic Laxative Start: 05-01-2023 take 17 g by mouth once daily MiraLax 17 gm, Oral, Daily, Refill(s) 0 Start Date: 05/01/23 Status: Ordered ribociclib 200 mg oral tablet [...] Refills(s) 0 Start Date: 07/03/21 Status: Ordered traMADol hydrochloride 50 mg oral tablet (1 source) Opioid Agonist Start: 05-01-2023 take 50 mg by mouth every six hours tramadol 50 mg, Oral, q6hr, Refills(s) 0 Start Date: 05/01/23 Status: Ordered Vitamin B12 1000 mcg Tab (10 sources) Start: 09-27-2022 take 1 tablet by mouth once daily Vitamin B12 1000 mcg Tab 1,000 mcg = 1 tab(s), Oral, Daily, # 30 tab(s), Refills(s) 11, Pharmacy: [facility], 162, cm, 09/08/22 15:14:00 EDT, Height/Length Dosing, 96.4, kg, 09/27/22 13:43:00 EDT, Weight Dosing Start Date: 09/27/22 Status: Ordered Vitamin D3 2000 intl units oral tablet (7 sources) Start: 12-14-2022 take 1 tablet by mouth once daily Vitamin D3 2000 intl units oral tablet 50 mcg = 1 tab(s), Oral, Daily, # 90 tab(s), Refills(s) 4, Pharmacy: [facility], 167, cm, 11/01/22 20:02:00 EDT, Height/Length [...] daily, # 7 cap(s), Refills(s) 0, Pharmacy: [facility] #[facility], 167, cm, 11/01/22 20:02:00 EDT, Height/Length Dosing, 90.3, kg, 11/01/22 20:02:00 EDT, Weight Dosing Start Date: 11/04/22 Status: Ordered Start: 11-04-2022 ergocalciferol 50,000 intl units Cap 50,000 International_Unit = 1 cap(s), Oral, q7day, # 7 cap(s), Refills(s) 0, Pharmacy: [facility] #[facility], 167, cm, 11/01/22 20:02:00 EDT, Height/Length [...] 0 Start Date: 07/03/21 Status: Ordered Problems Active Problems Problem Classification Problem Date Documented Date Episodic/Chronic Allergic reactions (1 source) Urticaria; Translations: [Other urticaria] Onset: 09-03-2021 Episodic Cancer of breast (20 sources) Malignant neoplasm of upper-outer quadrant of right female breast; Translations: [Malignant neoplasm of upper-outer quadrant of female breast] Onset: 07-11-2021 Chronic Cancer of breast (11 sources) Personal history of malignant neoplasm of breast; Translations: [History of malignant neoplasm of breast] Onset: 11-02-2022 Episodic Cancer of colon (1 source) Malignant tumor of colon; Translations: [Malignant neoplasm of colon, unspecified] Chronic Deficiency and other anemia (1 source) Anemia; Translations: [Anemia, unspecified] Onset: 12-19-2022 Episodic Delirium, dementia, and amnestic and other cognitive disorders (9 sources) Age-related cognitive decline; Translations: [Age-related cognitive [...] quadrant of breast 07-04-2021 Episodic Nutritional deficiencies (10 sources) Vitamin D deficiency; Translations: [Vitamin D deficiency, unspecified] Onset: 11-06-2022 Chronic Other aftercare (1 source) Long-term current use of drug therapy; Translations: [Other termination clerk (current) drug therapy] Onset: 11-02-2022 Episodic Other connective tissue disease (2 sources) Recurrent falls ; Translations: [Repeated falls] Onset: 11-02-2022 Episodic Other fractures (8 sources) Multiple pelvic fractures; Translations: [Multiple fractures [...] 30+ - obesity 07-04-2021 Chronic Pathological fracture (10 sources) H/O: fragility fracture; Translations: [Personal history of (healed) osteoporosis fracture] Onset: 11-06-2022 Episodic Residual codes; unclassified (20 sources) Edema 07-03-2021 Episodic Secondary malignancies (1 source) Secondary malignant neoplasm of bone; Translations: [Secondary malignant neoplasm of bone] Onset: 01-30-2023 Chronic Past or Other Problems Problem Classification Problem Date Documented Da te Episodic/Chronic Urinary tract infections (3 sources) Urinary tract infectious disease; Translations: [Urinary tract infection, site not specified] Onset: 12-19-2022 Episodic Results Test Name Value Interpretation Reference Range Facility Oncology Noteon 05-20-2023 Oncology Note Normal [facility] Comment on above: Result Comment: Elec tronically Signed By: Jane FARMER, Yolande L\.br\Date and Time Signed: 05/20/23 14:48 EST Physician Orderon 05-15-2023 Physician Order [id number]#1.00TIFF Normal [facility] Comment on above: Other Comment: wrong patient Physician Orderon 05-14-2023 Physician Order [id number]#1.00TIFF Normal [facility] 05-02-2023 Outside Labs [id number]#1.00TIFF Normal [facility] [id number]#1.00TIFF [facility] Physician Orderon 05-02-2023 Physician Order [id number]#1.00TIFF [facility] Physician Order [id number]#1.00TIFF [facility] Consent for Treatmenton 04-22 Consent for Treatment [id number]#1.00TIFF [facility] Oncology Noteon 05-01-2023 Oncology Note Normal [facility] Comment on above: Result Comment: Elec tronically Signed By: Magda FARMER, Annia\.br\Date and Time Signed: 05/01/23 15:05 EST Oncology Progress Noteon Oncology Progress Note Normal [facility] 05-01-2023 Outside Labs [id number]#1.00TIFF [facility] ONC - Otheron 02-07-2023 ONC - Other [id number]#1.00TIFF [facility] Physician Orderon 02-05-2023 Physician Order [id number]#1.00TIFF [facility] Consent for Treatmenton 01-20 Consent for Treatment [id number]#1.00TIFF [facility] Oncology Noteon 01-30-2023 Oncology Note [facility] Comment on above: Result Comment: Elec tronically Signed By: Jane FARMER, Yolande Houston\.br\Date and Time Signed: 01/30/23 17:07 EDT Oncology Progress Noteon Oncology Progress Note Normal [facility] 01-29-2023 Outside Labs [id number]#1.00TIF F [facility] Outside Labs [id number]#1.00TIF F [facility] 01-28-2023 Outside Labs [id number]#1.00TIFF [facility] Coding Queryon 01-16-2023 Coding Query [facility] ONC - Otheron 01-16-2023 ONC - Other [id number]#1.00CD:1 27 [facility] ONC - Otheron 01-09-2023 ONC - Other [id number]#1.00CD:1 27 [facility] Discharge Instructionson Discharge Instructions [id number]#1.00CD:1 [facility] Transfer Documentson 023 Transfer Documents [id number]#1.00CD:1 [facility] CHEMISTRYOrdered By: Lab ROP User on 12-23-2022 Glucose [Mass/Vol] 111 mg/dL High 55 - 99 mg/dL [facility] POC Subsection Comment on above: Result Comment: Noti fied RN/MD POC Device SN [id number] Invalid Interpretation Code FT POC Subsection POC User ID [id number] Invalid Interpretation Code FT POC Subsection POC Username JUAN HENNESSY Invalid Interpretation Code FT POC Subsection Capillary Glucose POCon Glucose [Mass/Vol] 111 mg/dL High 55-99 [facility] Comment on above: Result Comment: Navin BOSE Performed By: #### 2 [id number] ####[facility] [address] [place] [address] Discharge Note-Nursingon Discharge Note-Nursing Normal [facility] C Urineon 12-22-2022 Bacteria identified Cx Nom (U) Normal [facility] Comment on above: Performed By: #### 1 [id number] ####[facility] [address] [place] [address] CHEMISTRYOrdered By: Lab ROP User on 12-22-2022 Glucose [Mass/Vol] 155 mg/dL High 55 - 99 mg/dL [facility] POC Subsection Comment on above: Result Comment: Navin BOSE POC Device SN [id number] Invalid Interpretation Code FT POC Subsection POC User ID [id number] Invalid Interpretation Code FT POC Subsection POC Username DARRYN SANTOS Invalid Interpretation Code FT POC Subsection Glucose [Mass/Vol] 129 mg/dL High 55 - 99 mg/dL [facility] POC Subsection Comment on above: Result Comment: Christine donna Meter POC Device SN [id number] Invalid Interpretation Code FT POC Subsection POC User ID [id number] Invalid Interpretation Code FT POC Subsection POC Username ROOPA LIM Invalid Interpretation Code FT POC Subsection Capillary Glucose POCon Glucose [Mass/Vol] 155 mg/dL High 55-99 [facility] Comment on above: Result Comment: Navin BOSE Performed By: #### 2 [id number] ####[facility] [address] [place] [address] Glucose [Mass/Vol] 129 mg/dL High 55-99 [facility] Comment on above: Result Comment: Christine donna Meter Performed By: #### 2 [id number] ####[facility] [address] [place] [address] Glucose [Mass/Vol] 158 mg/dL High 55-99 [facility] Comment on above: Result Comment: Christine donna Meter Performed By: #### 2 [id number] ####[facility] [address] [place] [address] Glucose [Mass/Vol] 144 mg/dL High 55-99 [facility] Comment on above: Result Comment: Navin uriostegui RN/ Performed By: #### 2 [id number] ####[facility] [address] [place] [address] 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 Note - Attila e Manageron 12-22-2022 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 Note - Hospice Care Sales Consultant Normal [facility] Comment on above: Result Comment: Elec tronically Signed By: Jolanta Stubbs RN\.br\Date and Time Signed: 12/22/22 16:25 EDT Progress Note-Physicianon Progress Note-Physician Normal [facility] Comment on above: Result Comment: Elec tronically Signed By: Zaheer Sloan DO\.br\Date and Time Signed: 12/22/22 09:47 EDT Auto Diffon 12-21-2022 Basophils/100 WBC (Bld) 2.6 % High 0.0-2.0 [facility] Comment on above: Order Comment: Order Added by Discern Expert. Performed By: #### 7 [id number], [id number], 8033053, 1862446, 2565503 ####[facility] [address] [place] [address] Basophils/Leukocytes Auto (Bld) [Pure # fraction] 0.1 E9/L Normal 0.0-0.2 [facility] Comment on above: Order Comment: Order Added by Discern Expert. Performed By: #### 7 [id number], [id number], 7646772, 7092298, 7375360 ####[facility] [address] [place] [address] Eosinophils/100 WBC (Bld) 2.5 % Normal 0.0-8.0 [facility] Comment on above: Order Comment: Order Added by Discern Expert. Performed By: #### 7 [id number], 24114994, 4454792, 4019697, 0848832 ####[address] [place] [address] Eosinophils/Leukocytes Auto (Bld) [Pure # fraction] 0.1 E9/L Normal 0.0-0.5 [facility] Comment on above: Order Comment: Order Added by Discern Expert. Performed By: #### 7 [id number], 68212680, 6094731, 5460750, 6597483 ####[address] [place] [address] Lymphocytes/100 WBC (Bld) 42.1 % Normal 14.0-50.0 [facility] Comment on above: Order Comment: Order Added by Faviola Expert. Performed By: #### 7 [id number], 37889441, 0397809, 7318917, 8077516 ####[address] [address] Lymphocytes/Leukocytes Auto (Bld) [Pure # fraction] 1.4 E9/L Normal 1.0-4.0 [facility] Comment on above: Order Comment: Order Added by Faviola Expert. Performed By: #### 7 [id number], 13914744, 6769185, 4659085, 0609184 ####[address] [address] Monocytes/100 WBC (Bld) 13.6 % Normal 4.0-14.0 [facility] Comment on above: Order Comment: Order Added by Faviola Expert. Performed By: #### 7 [id number], 51407721, 5972795, 8523446, 9829717 ####[address] [address] Monocytes/Leukocytes Auto (Bld) [Pure # fraction] 0.4 E9/L Normal 0.2-1.0 [facility] Comment on above: Order Comment: Order Added by Discern Expert. Performed By: #### 7 [id number], 10986638, 1786450, 1610192, 4333798 ####[facility] [address] [place] [address] Neutrophils/100 WBC (Bld) 39.2 % Normal 36.0-75.0 [facility] Comment on above: Order Comment: Order Added by Discern Expert. Performed By: #### 7 [id number], 45157007, 0008689, 3299671, 1758054 ####[facility] [address] [place] [address] Neutrophils/Leukocytes Auto (Bld) [Pure # fraction] 1.3 E9/L Low 2.0-7.5 [facility] Comment on above: Order Comment: Order Added by Discern Expert. Performed By: #### 7 [id number], 48445007, 1937752, 6567311, 4678126 ####[facility] [address] [place] [address] BMPon 12-21-2022 Anion gap [Moles/Vol] 11 mmol/L Normal 6-16 [facility] Comment on above: Performed By: #### 7 [id number], 38323505, 3928417, 7224300, 0634536 ####[facility] [address] [place] [address] Calcium [Mass/Vol] 8.9 mg/dL Normal 8.9-11.1 [facility] Comment on above: Performed By: #### 7 [id number], 40495545, 9808097, 6818127, 8300163 ####[facility] [address] [place] [address] Chloride [Moles/Vol] 112 mmol/L High 101-[address] [facility] Comment on above: Performed By: #### 7 [id number], 29708550, 3689817, 9700769, 8607479 ####[facility] [address] [place] [address] CO2 [Moles/Vol] 22 mmol/L Normal 21-31 [facility] Comment on above: Performed By: #### 7 39241515, 65884523, 6914811, 2425915, 9145573 ####[facility] [address] [place] [address] Creatinine [Mass/Vol] 1.4 mg/dL High 0.5-1.3 [facility] Comment on above: Performed By: #### 7 [id number], 64334027, 1538393, 2310662, 6711227 ####[facility] [address] [place] [address] Glucose [Mass/Vol] 102 mg/dL Normal 55-199 [facility] Comment on above: Result Comment: If t his glucose result represents a fasting glucose, interpretation should refer to the following reference range: 55-99 mg/dL Performed By: #### 7 [id number], 90515886, 9699529, 2974413, 0016781 ####[facility] [address] [place] [address] Potassium [Moles/Vol] 4.0 mmol/L Normal 3.5-5.3 [facility] Comment on above: Performed By: #### 7 [id number], 68703271, 1115560, 3408837, 1090982 ####[facility] [address] [place] [address] Sodium [Moles/Vol] 141 mmol/L Normal 135-145 [facility] Comment on above: Performed By: #### 7 [id number], 46314824, 1488336, 8513807, 1762653 ####[facility] [address] [place] [address] Urea nitrogen [Mass/Vol] 36 mg/dL High 5-21 [facility] Comment on above: Performed By: #### 7 03606194, 09985091, 2170156, 3428347, 1487627 ####[facility] [address] [place] [address] Urea nitrogen/Creatinine [Mass ratio] 26 No Units High 10-20 [facility] Comment on above: Performed By: #### 7 94923030, 59672565, 4695657, 4362716, 5961426 ####[facility] [address] [place] [address] C Urineon 12-21-2022 Bacteria identified Cx Nom (U) Normal [facility] Comment on above: Performed By: #### 2 803649, 41232207 ####[facility] [address] [place] [address] CBC w/ Auto Diffon Erythrocyte distribution width (RBC) [Ratio] 18.4 % High 10.9-14.2 [facility] Comment on above: Performed By: #### 7 [id number], 76651722, 1738606, 9221724, 3444310 ####[address] [place] [address] Hematocrit (Bld) [Volume fraction] 26.8 % Low 34.0-46.0 [facility] Comment on above: Performed By: #### 7 66660026, 47901017, 3203857, 3486138, 7409081 ####[facility] [address] [place] [address] Hemoglobin (Bld) [Mass/Vol] 9.3 g/dL Low 12.0-16.0 [facility] Comment on above: Performed By: #### 7 22400863, 66015922, 0127158, 9251378, 5955744 ####[facility] [address] [place] [address] MCH (RBC) [Entitic mass] 34.3 pg High 27.0-34.0 [facility] Comment on above: Performed By: #### 7 79873446, 42878521, 4088587, 5709635, 2864995 ####[facility] [address] [place] [address] MCHC (RBC) [Mass/Vol] 34.8 g/dL Normal 31.4-36.0 [facility] Comment on above: Performed By: #### 7 48221854, 67811055, 7846191, 3620515, 8011871 ####[address] [place] [address] MCV (RBC) [Entitic vol] 98.6 fL Normal 80.0-100.0 [facility] Comment on above: Performed By: #### 7 [id number], 56582494, 3554154, 2305586, 1320261 ####[address] [address] Platelet mean volume (Bld) [Entitic vol] 6.8 fL Normal 6.4-10.8 [facility] Comment on above: Performed By: #### 7 37188173, 43837687, 5252398, 2699233, 0164955 ####[address] [address] Platelets (Bld) [#/Vol] 201.0 E9/L Normal 150. 0-500. 0 [facility] Comment on above: Performed By: #### 7 45878471, 71449103, 3365437, 3307436, 9211111 ####[address] [address] RBC (Bld) [#/Vol] 2.7 E12/L Low 4.3-5.9 [facility] Comment on above: Performed By: #### 7 11043029, 15324036, 3509939, 8660669, 4134545 ####[address] [address] WBC corrected for nucl RBC Auto (Bld) [#/Vol] 3.3 E9/L Low 4.0-11.0 [facility] Comment on above: Performed By: #### 7 [id number], 53262712, 9811502, 6782275, 4063669 ####[address] [address] CHEMISTRYOrdered By: SYSTEM SYSTEM on 12-21-2022 Anion gap [Moles/Vol] 11 mmol/L Normal 6 - 16 mEq/L [facility] Remisol Calcium [Mass/Vol] 8.9 mg/dL Normal 8.9 - 11. 1 mg/dL [facility] Remisol Chloride [Moles/Vol] 112 mmol/L High 101 - 1 11 mmol/L [facility] Remisol CO2 [Moles/Vol] 22 mmol/L Normal 21 - 31 mmol/L [facility] Remisol Creatinine [Mass/Vol] 1.4 mg/dL High 0.5 - 1.3 mg/dL [facility] Remisol GFR/1.73 sq M.predicted among non-blacks MDRD (S/P/Bld) [Vol rate/Area] 40 mL/min/1.73 m2 Low >=59mL/min /1.73 m2 [facility] Chem S Glucose [Mass/Vol] 102 mg/dL Normal 55 - 199 mg/dL [facility] Remisol Potassium [Moles/Vol] 4.0 mmol/L Normal 3.5 - 5.3 mmol/L [facility] Remisol Sodium [Moles/Vol] 141 mmol/L Normal 135 - 145 mmol/L [facility] Remisol Urea nitrogen [Mass/Vol] 36 mg/dL High 5 - 21 mg/dL [facility] Remisol Urea nitrogen/Creatinine [Mass ratio] 26 mg/mg High 10 - 20 [facility] Remisol CHEMISTRYOrdered By: Gavino Lyle on 12-21-2022 HbA1c (Bld) [Mass fraction] 7.1 % High <=5.9% [facility] ChemAutoSS Capillary Glucose POCon - Glucose [Mass/Vol] 127 mg/dL High 55-99 [facility] Comment on above: Result Comment: Navin BOSE Performed By: #### 2 [id number] ####[facility] [address] [place] [address] Glucose [Mass/Vol] 160 mg/dL High 55- [facility] Comment on above: Result Comment: Navin BOSE Performed By: #### 2 [id number] ####[facility] [address] [place] [address] Glucose [Mass/Vol] 132 mg/dL High - [facility] Comment on above: Result Comment: Navin BOSE Performed By: #### 2 [id number] ####[facility] [address] [place] [address] Glucose [Mass/Vol] 115 mg/dL High 55-99 [facility] [facility] Comment on above: Result Comment: Navin BOSE Performed By: #### 2 [id number] ####[facility] [address] [place] [address] HEMATOLOGYOrdered By: SYSTEM SYSTEM on 12-21-2022 Basophils/100 WBC (Bld) 2.6 % High 0.0 - 2.0 % [facility] HemeAutoSS Basophils/Leukocytes Auto (Bld) [Pure # fraction] 0.1 E9/L Normal 0.0 - 0.2 E9/L [facility] HemeAutoSS Eosinophils/100 WBC (Bld) 2.5 % Normal 0.0 - 8.0 % [facility] [...] 3.3 E9/L Low 4.0 - 11.0 E9/L [facility] HemeAutoSS GvjQ4whh 12-21-2022 HbA1c (Bld) [Mass fraction] 7.1 % High <=5.9 [facility] Comment on above: Performed By: #### 7 [id number], 23213433, 4757449, 8548470, 8739288 ####[facility] [address] [place] [address] Insurance Correspondence Off iceon 12-21-2022 Insurance Correspondence Office [id number]#1.00CD:12 7 Normal [facility] 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 Note - Attila e Manageron 12-21-2022 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 Note - Hospice Care Sales Consultant Normal [facility] Comment on above: Result Comment: Elec tronically Signed By: Brooklynn Connor\Date and Time Signed: 12/21/22 11:15 EDT 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 Note - Rafat n 12-21-2022 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 Note - OT Normal [facility] 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 Note - PTo n 12-21-2022 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 Note - PT Normal [facility] 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 Note - Soc ial Workeron 12-21-2022 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 Note - Line Construction Superintendent Normal [facility] Message from Medicareon 09-0 Message from Medicare [id number]#1.00CD:12 7 Normal [facility] Progress Note-Physicianon Progress Note-Physician Normal F [facility] [place] Comment on above: Result Comment: Elec tronically Signed By: Nathalia LUDWIG, Zaheer Song.br\Date and Time Signed: 12/21/22 14:15 EDT eGFRon 12-21-2022 GFR/1.73 sq M.predicted among non-blacks MDRD (S/P/Bld) [Vol rate/Area] 40 mL/min/1.73 m2 Low >=59 [facility] Comment on above: Order Comment: Order added by Discern Expert. Result Comment: Psych Therapist aubrey kidney disease could be indicated at eGFR's of less than 60 mL/min/1.73m2. Kidney failure is indicated at less than 15 mL/min/1.73m2. Performed By: #### 7 [id number], 20981905, 6287593, 2733106, 9861737 ####[facility] [address] [place] [address] Auto Diffon 12-20-2022 Basophils/100 WBC (Bld) 3.5 % High 0.0-2.0 [facility] Comment on above: Order Comment: Order Added by Discern Expert. Performed By: #### 1 9686805, 2851089, 0630420, 13606728, 9324466, 2339456 ####[facility] [address] [place] [address] Basophils/Leukocytes Auto (Bld) [Pure # fraction] 0.1 E9/L Normal 0.0-0.2 [facility] Comment on above: Order Comment: Order Added by Discern Expert. Performed By: #### 1 5059019, 3728222, 4528474, 01500370, 1677146, 6218787 ####[facility] [address] [place] [address] Eosinophils/100 WBC (Bld) 1.3 % Normal 0.0-8.0 [facility] Comment on above: Order Comment: Order Added by Discern Expert. Performed By: #### 1 5906747, 0879388, 6031808, 33640972, 5625767, 0939999 ####[address] [place] [address] Eosinophils/Leukocytes Auto (Bld) [Pure # fraction] 0.0 E9/L Normal 0.0-0.5 [facility] Comment on above: Order Comment: Order Added by Discern Expert. Performed By: #### 1 1254842, 3098178, 2137926, 07910233, 2385334, 5502227 ####[address] [place] [address] Lymphocytes/100 WBC (Bld) 28.4 % Normal 14.0-50.0 [facility] Comment on above: Order Comment: Order Added by Discern Expert. Performed By: #### 1 2759171, 1978389, 1069631, 75703449, 6136008, 1470201 ####[address] [address] Lymphocytes/Leukocytes Auto (Bld) [Pure # fraction] 1.1 E9/L Normal 1.0-4.0 [facility] Comment on above: Order Comment: Order Added by Discern Expert. Performed By: #### 1 8540424, 0120915, 7664311, 77944975, 5365558, 0858480 ####[facility] [address] [place] [address] Monocytes/100 WBC (Bld) 12.5 % Normal 4.0-14.0 [facility] Comment on above: Order Comment: Order Added by Discern Expert. Performed By: #### 1 7709332, 6069392, 5513868, 68032095, 5728178, 0546333 ####[address] [place] [address] Monocytes/Leukocytes Auto (Bld) [Pure # fraction] 0.5 E9/L Normal 0.2-1.0 [facility] Comment on above: Order Comment: Order Added by Discern Expert. Performed By: #### 1 3512869, 3819953, 4922875, 05000443, 9586254, 9691034 ####[facility] [address] [place] [address] Neutrophils/100 WBC (Bld) 54.3 % Normal 36.0-75.0 [facility] Comment on above: Order Comment: Order Added by Discern Expert. Performed By: #### 1 5967512, 4008472, 2651380, 24027741, 9782836, 7892906 ####[facility] [address] [place] [address] Neutrophils/Leukocytes Auto (Bld) [Pure # fraction] 2.1 E9/L Normal 2.0-7.5 [facility] Comment on above: Order Comment: Order Added by Faviola Expert. Performed By: #### 1 6953212, 5365390, 3806384, 47738669, 7012779, 2846429 ####[facility] [address] [place] [address] BMPon 12-20-2022 Creatinine [Mass/Vol] 1.3 mg/dL Normal 0.5-1.3 [facility] Comment on above: Performed By: #### 1 0563619, 1453566, 5880731, 13811752, 8121881, 8543271 ####[facility] [address] [place] [address] Urea nitrogen [Mass/Vol] 36 mg/dL High 5-21 [facility] Comment on above: Performed By: #### 1 0706634, 8554545, 7951960, 50105210, 4774953, 9182449 ####[facility] [address] [place] [address] Urea nitrogen/Creatinine [Mass ratio] 28 No Units High 10-20 [facility] Comment on above: Performed By: #### 1 6979233, 9519647, 3665519, 65238896, 2824396, 7145774 ####[facility] [address] [place] [address] Anion gap [Moles/Vol] 13 mmol/L Normal 6-16 [facility] Comment on above: Performed By: #### 1 1041369, 6728806, 6098346, 22450731, 9918098, 5443653 ####[facility] [address] [place] [address] Calcium [Mass/Vol] 9.6 mg/dL Normal 8.9-11.1 [facility] Comment on above: Performed By: #### 1 0985869, 9740726, 4771905, 43104357, 9677932, 4246588 ####[facility] [address] [place] [address] Chloride [Moles/Vol] 108 mmol/L Normal 101-111 [facility] Comment on above: Performed By: #### 1 8684806, 5112679, 4069798, 32436400, 8500177, 8464399 ####[facility] [address] [place] [address] CO2 [Moles/Vol] 21 mmol/L Normal 21-31 [facility] Comment on above: Performed By: #### 1 4463514, 2039747, 5721892, 25690919, 7319582, 4249940 ####[facility] [address] [place] [address] Glucose [Mass/Vol] 136 mg/dL Normal 55-199 [facility] Comment on above: Result Comment: If t his glucose result represents a fasting glucose, interpretation should refer to the following reference range: 55-99 mg/dL Performed By: #### 1 0692944, 2017876, 3480110, 85713772, 1881121, 2968868 ####[facility] [address] [place] [address] Potassium [Moles/Vol] 4.2 mmol/L Normal 3.5-5.3 [facility] Comment on above: Performed By: #### 1 3886276, 3796809, 6696562, 41841599, 1862014, 0172358 ####[facility] [address] [place] [address] Sodium [Moles/Vol] 138 mmol/L Normal 135-145 [facility] Comment on above: Performed By: #### 1 5486086, 4656033, 1255026, 65539366, 1145447, 6618278 ####[address] [place] [address] CBC w/ Auto Diffon 3 Erythrocyte distribution width (RBC) [Ratio] 19.0 % High 10.9-14.2 [facility] Comment on above: Performed By: #### 1 8313884, 7521450, 2393795, 23641274, 1169301, 6006879 ####[address] [place] [address] Hematocrit (Bld) [Volume fraction] 31.3 % Low 34.0-46.0 [facility] Comment on above: Performed By: #### 1 0015749, 7991245, 4323841, 22633263, 3800370, 7672402 ####[address] [address] Hemoglobin (Bld) [Mass/Vol] 10.4 g/dL Low 12.0-16.0 [facility] Comment on above: Performed By: #### 1 6065403, 2326105, 0205059, 86559407, 0455200, 1273468 ####[facility] [address] [place] [address] MCH (RBC) [Entitic mass] 33.3 pg Normal 27.0-34.0 [facility] Comment on above: Performed By: #### 1 0112742, 8033848, 6313033, 44299987, 9713281, 4292472 ####[address] [place] [address] MCHC (RBC) [Mass/Vol] 33.3 g/dL Normal 31.4-36.0 [facility] Comment on above: Performed By: #### 1 4633676, 3429070, 2047699, 78139311, 1031195, 4234183 ####[facility] [address] [place] [address] MCV (RBC) [Entitic vol] 99.8 fL Normal 80.0-100.0 F [facility] [place] Comment on above: Performed By: #### 1 1320169, 3895918, 9029445, 72594511, 7787021, 1749483 ####[facility] [address] [place] [address] Platelet mean volume (Bld) [Entitic vol] 6.8 fL Normal 6.4-10.8 [facility] Comment on above: Performed By: #### 1 2385033, 0241389, 0842949, 34927081, 9265497, 7752915 ####[place] [address] Platelets (Bld) [#/Vol] 212.0 E9/L Normal 150. 0-500. 0 [facility] Comment on above: Performed By: #### 1 6673450, 9553354, 2128117, 53342500, 1524245, 8230032 ####[address] [address] RBC (Bld) [#/Vol] 3.1 E12/L Low 4.3-5.9 [facility] Comment on above: Performed By: #### 1 0337972, 5348268, 9555212, 11018341, 2304683, 4773333 ####[address] [place] [address] WBC corrected for nucl RBC Auto (Bld) [#/Vol] 3.9 E9/L Low 4.0-11.0 [facility] Comment on above: Performed By: #### 1 3040398, 5966771, 6407129, 87942841, 6508297, 0370963 ####[address] [place] [address] CHEMISTRYOrdered By: SYSTEM SYSTEM on 12-20-2022 Troponin [...] 43 mL/min/1.73 m2 Low >=59mL/min /1.73 m2 [facility] Chem S Globulin (S) [Mass/Vol] 3.8 g/dL Normal 1.4 - 4.0 gm/dL [facility] Remisol Glucose [Mass/Vol] 136 mg/dL Normal 55 - 199 mg/dL [facility]isol Potassium [Moles/Vol] 4.2 mmol/L Normal 3.5 - 5.3 mmol/L [facility] Protein [Mass/Vol] 7.3 g/dL Normal 6.0 - 7.8 gm/dL [facility] Sodium [Moles/Vol] 138 mmol/L Normal 135 - 145 mmol/L [facility] Troponin I.cardiac [Mass/Vol] 9.80 pg/mL Low 10.10 - 27.10 pg/mL [facility] Urea nitrogen [Mass/Vol] 36 mg/dL High 5 - 21 mg/dL [facility] Urea nitrogen/Creatinine [Mass ratio] 28 mg/mg High 10 - 20 [facility] Consent for Treatmenton 11-22 Consent for Treatment [id number]#1.00CD:12 7 Normal [facility] Consent for Treatment [id number]#1.00CD:1 27 Normal [facility] Discharge Instructionson Discharge Instructions [id number]#1.00CD:1 27 Normal [facility] ED Clinical Summaryon 2022 ED Clinical Summary Normal [facility] ED Clinical Summary Normal [facility] ED Note-Physicianon 12-21-19 ED Note-Physician Normal [facility] Comment on above: Result Comment: Elec tronically Signed By: Pedro Nava DO\.br\Date and Time Signed: 12/20/22 19:22 EDT ED Note-Physician Normal [facility] Comment on above: Result Comment: Elec tronically Signed By: David Tong MD\.br\Date and Time Signed: 12/20/22 00:40 EDT ED Patient Education Noteon 12-20-2022 ED Patient Education Note Normal [facility] ED Patient Education Note Normal [facility] ED Patient Summaryon 08-31-2 023 ED Patient Summary Normal [facility] ED Patient Summary Normal [facility] HEMATOLOGYOrdered By: SYSTEM SYSTEM on 12-20-2022 Basophils/100 [...] 99.8 fL Normal 80.0 - 100.0 fL [facility] HemeAutoSS Platelet mean volume (Bld) [Entitic vol] 6.8 fL Normal 6.4 - 10.8 fL [facility] HemeAutoSS Platelets (Bld) [#/Vol] 212.0 E9/L Normal 150. 0 - 500.0 E9/L [facility] HemeAutoSS RBC (Bld) [#/Vol] 3.1 E12/L Low 4.3 - 5.9 E12/L [facility] HemeAutoSS WBC corrected for nucl RBC Auto (Bld) [#/Vol] 3.9 E9/L Low 4.0 - 11.0 E9/L [facility] HemeAutoSS Hep Func Panelon 12-20-2022 Bilirubin.direct [Mass/Vol] 0.1 mg/dL Normal 0.1-0.4 [facility] Comment on above: Performed By: #### 1 5465674, 0089023, 8531145, 82256995, 0847573, 0714218 ####[facility] [address] [place] [address] Bilirubin.indirect [Mass or moles/Vol] 0.8 mg/dL Normal 0.1-0.9 [facility] Comment on above: Performed By: #### 1 6273916, 0058054, 4857157, 56144689, 2734482, 8341576 ####[facility] [address] [place] [address] Albumin [Mass/Vol] 3.5 g/dL Normal 3.3-5.0 [facility] Comment on above: Performed By: #### 1 4148973, 7262471, 0552464, 14949694, 3697250, 9079044 ####[facility] [address] [place] [address] Albumin/Globulin (S) [Mass conc ratio] 0.9 Low 1.1-2.2 [facility] Comment on above: Performed By: #### 1 8432390, 5407955, 6641182, 77837428, 5454910, 4095621 ####[address] [address] ALP [Catalytic activity/Vol] 101 Int._Unit/L High 21-98 [facility] Comment on above: Performed By: #### 1 4836532, 8850163, 8504261, 98412721, 8075840, 7977058 ####[address] [place] [address] ALT No additional P-5'-P [Catalytic activity/Vol] 20 Int._Unit/L Normal 6-46 [facility] Comment on above: Performed By: #### 1 7193147, 0271543, 4786609, 32116204, 4973389, 1062380 ####[address] [address] AST [Catalytic activity/Vol] 18 Int._Unit/L Normal 5-43 [facility] Comment on above: Performed By: #### 1 7052895, 3955745, 1610512, 87924677, 4202311, 9475258 ####[address] [address] Bilirubin [Mass/Vol] 0.9 mg/dL Normal 0.0-1.1 [facility] Comment on above: Performed By: #### 1 4981543, 8318335, 5200904, 09490167, 7915095, 9362515 ####[address] [place] [address] Globulin (S) [Mass/Vol] 3.8 g/dL Normal 1.4-4.0 [facility] Comment on above: Performed By: #### 1 3583619, 9615100, 0039408, 13784548, 3496330, 5402351 ####[address] [place] [address] Protein [Mass/Vol] 7.3 g/dL Normal 6.0-7.8 [facility] Comment on above: Performed By: #### 1 8163513, 9424251, 5514953, 07803808, 7598712, 5447130 ####[facility] [address] [place] [address] Laboratory - Microbiology an d Antimicrobial susceptibilityOrdered By: Ninfa Sawyer on 12-20-2022 Bacteria identified Cx Nom (U) 1,000 cfu/ml Mixed skin contaminants [facility] Monitor Recordon 12-20-2022 Monitor Record [id number]#1.00CD:1 27 Normal [facility] Monitor Record [id number]#1.00CD:1 27 Normal [facility] Pre-Arrival Noteon 3 Pre-Arrival Note Normal [facility] Troponin 0 Hr.on 12-20-2022 Troponin I.cardiac [Mass/Vol] 9.80 pg/mL Low 10.10-27.1 0 [facility] Comment on above: Result Comment: The 95% CI (Confidence Interval) PPV (Positive Predictive Value) for myocardial infarction in females is 38 pg/mL, in males 51 pg/mL. The results should be used in conjunction with clinical conditions of myocardial infarction.([employer] High Sensitivity Troponin I Instructions For Use, Cursogram, November 2017) Performed By: #### 1 5765877, 0704730, 4891056, 91353612, 2448217, 7064956 ####[facility] [address] [place] [address] Troponin 3 Hr.on 12-20-2022 Troponin I.cardiac [Mass/Vol] 10.20 pg/mL Normal 10.10-27.1 0 [facility] Comment on above: Result Comment: The 95% CI (Confidence Interval) PPV (Positive Predictive Value) for myocardial infarction in females is 38 pg/mL, in males 51 pg/mL. The results should be used in conjunction with clinical conditions of myocardial infarction.([employer] High Sensitivity Troponin I Instructions For Use, Cursogram, November 2017) Performed By: #### 1 9372904 ####[facility] [address] [place] [address] UA With Cult Reflexon 2022 Bilirubin Ql (U) Negative Normal Negative [facility] Comment on above: Performed By: #### 1 6204674, 0745605 ####[facility] [address] [place] [address] Clarity (U) CLEAR Normal Clear [facility] Comment on above: Performed By: #### 1 3597552, 5287693 ####[facility] [address] [place] [address] Color (U) STRAW Abnormal Yellow [facility] Comment on above: Performed By: #### 1 7102036, 5140358 ####[address] [address] Epithelial cells.squamous LM.HPF (Urine sed) [#/Area] 0-2 Normal 0-2 [facility] Comment on above: Performed By: #### 1 6956876, 1197015 ####[facility] [address] [place] [address] Glucose Test strip (U) [Mass/Vol] Negative Normal Negative [facility] Comment on above: Performed By: #### 1 4506259, 5227420 ####[facility] [address] [place] [address] Hemoglobin Ql (U) TRACE Abnormal Negative [facility] Comment on above: Performed By: #### 1 8918639, 5069173 ####[facility] [address] [place] [address] Ketones (U) [Mass/Vol] Negative Normal Negative Fi [facility] Comment on above: Performed By: #### 1 5126499, 9695778 ####[facility] [address] [place] [address] [place].plasma/[place]. RBC (Bld) [Mass ratio] 0-3 Normal 0-3 [facility] Comment on above: Performed By: #### 1 7104143, 0808474 ####[facility] [address] [place] [address] Nitrite Ql (U) Negative Normal Negative [facility] Comment on above: Performed By: #### 1 6637371, 7235625 ####[facility] [address] [place] [address] pH (U) 5.5 [pH] Invalid Interpretation Code 5.0-9.0 [facility] Comment on above: Performed By: #### 1 6964625, 0226472 ####[facility] [address] [place] [address] Protein (U) [Mass/Vol] Negative Normal Negative [facility] Comment on above: Performed By: #### 1 3545441, 1051641 ####[place] [address] Specific gravity (U) [Rel density] <=1.005 Invalid Interpretation Code 1.005-1.03 0 [facility] Comment on above: Performed By: #### 1 8694171, 7032062 ####[place] [address] Type of Urine collection method Clean Catch Normal [facility] Comment on above: Performed By: #### 1 8265542, 5965899 ####[address] [address] Urobilinogen Qn (U) 0.2 {Tj'U}/dL Normal 0.0-1.0 [facility] Comment on above: Performed By: #### 1 1227706, 3069743 ####[place] [address] WBC Auto Ql (U) 1+ Abnormal Negative [facility] Comment on above: Performed By: #### 1 8243228, 2512458 ####[address] [address] WBC LM.HPF (Urine sed) [#/Area] 6-15 Abnormal 0-5 [facility] Comment on above: Performed By: #### 1 2833538, 6690366 ####[address] [address] UA Spec Desc Catheter Normal [facility] Comment on above: Result Comment: Mini cath specimen Performed By: #### 2 838376, 16278948 ####[facility] [address] [place] [address] Bacteria LM Ql (Urine sed) 2+ /HPF Abnormal Trace [facility] Comment on above: Performed By: #### 2 009352, 42916367 ####[facility] [address] [place] [address] Bilirubin Ql (U) Negative Normal Negative [facility] Comment on above: Performed By: #### 2 075442, 53398311 ####[address] [address] Clarity (U) CLEAR Normal Clear [facility] Comment on above: Performed By: #### 2 239521, 90366008 ####[address] [place] [address] Color (U) YELLOW Normal Yellow [facility] Comment on above: Performed By: #### 2 480172, 05715523 ####[address] [address] Epithelial cells.squamous LM.HPF (Urine sed) [#/Area] 0-2 Normal 0-2 [facility] Comment on above: Performed By: #### 2 268171, 12800440 ####[address] [address] Glucose Test strip (U) [Mass/Vol] Negative Normal Negative [facility] Comment on above: Performed By: #### 2 353834, 52711895 ####[address] [address] Hemoglobin Ql (U) Negative Normal Negative [facility] Comment on above: Performed By: #### 2 537133, 16694492 ####[facility] [address] [place] [address] Ketones (U) [Mass/Vol] Negative Normal Negative Fi [facility] Comment on above: Performed By: #### 2 194893, 41055624 ####[address] [address] [place].plasma/[place]. RBC (Bld) [Mass ratio] 0-3 Normal 0-3 [facility] Comment on above: Performed By: #### 2 399784, 91360159 ####[address] [address] Nitrite Ql (U) Positive Abnormal Negative [facility] Comment on above: Performed By: #### 2 879180, 09768885 ####[address] [address] pH (U) 6.0 [pH] Invalid Interpretation Code 5.0-9.0 [facility] Comment on above: Performed By: #### 2 080522, 66127139 ####[address] [address] Protein (U) [Mass/Vol] Negative Normal Negative [facility] Comment on above: Performed By: #### 2 665442, 30924776 ####[address] [address] Specific gravity (U) [Rel density] 1.025 Invalid Interpretation Code 1.005-1.03 0 [facility] Comment on above: Performed By: #### 2 365195, 81768560 ####[address] [address] Urobilinogen Qn (U) 0.2 {Tj'U}/dL Normal 0.0-1.0 [facility] Comment on above: Performed By: #### 2 754032, 94946162 ####[address] [address] WBC Auto Ql (U) TRACE Abnormal Negative [facility] Comment on above: Performed By: #### 2 874291, 86344457 ####[address] [address] WBC LM.HPF (Urine sed) [#/Area] 0-5 Normal 0-5 [facility] Comment on above: Performed By: #### 2 526806, 29649415 ####[facility] [address] [place] [address] URINALYSISOrdered By: Lisette Medina on 12-20-2022 Bilirubin [...] PM) Normal Negative [facility] UA Auto SS [place].plasma/[place]. RBC (Bld) [Mass ratio] 0-3 /HPF Normal [...] [facility] UA Auto SS Urobilinogen Qn (U) 0.7051223 {Tj'U}/dL Normal 0.0 - 1.0 EU/dL [facility] UA Auto SS WBC Auto Ql (U) 1+ *ABN* (12/20/22 5:18 PM) Invalid Interpretation Code Negative [facility] UA Auto SS WBC LM.HPF (Urine sed) [#/Area] 6-15 /HPF Invalid Interpretation Code 0-5/HPF [facility] UA Auto SS XR Chest Single Viewon 12-20 XR Chest Single View Normal [facility] XR Chest Single View Normal [facility] eGFRon 12-20-2022 GFR/1.73 sq M.predicted among non-blacks MDRD (S/P/Bld) [Vol rate/Area] 43 mL/min/1.73 m2 Low >=59 [facility] Comment on above: Order Comment: Order added by Discern Expert. Result Comment: Psych Therapist aubrey kidney disease could be indicated at eGFR's of less than 60 mL/min/1.73m2. Kidney failure is indicated at less than 15 mL/min/1.73m2. Performed By: #### 1 6152174, 2180289, 7516339, 88580516, 8591427, 1146924 ####[facility] [address] [place] [address] Auto Diffon 12-19-2022 Basophils/100 WBC (Bld) 0.4 % Normal 0.0-2.0 F [facility] [place] Comment on above: Order Comment: Order Added by Discern Expert. Performed By: #### 1 0108981, 2459240, 71699406, 6505139, 04201135, 0615605, 0115205, 8512139 ####[facility] [address] [place] [address] Basophils/Leukocytes Auto (Bld) [Pure # fraction] 0.0 E9/L Normal 0.0-0.2 [facility] Comment on above: Order Comment: Order Added by Discern Expert. Performed By: #### 1 5145818, 2701402, 76668898, 8990476, 41144570, 3631629, 2966974, 6831420 ####[facility] [address] [place] [address] Eosinophils/100 WBC (Bld) 1.6 % Normal 0.0-8.0 [facility] Comment on above: Order Comment: Order Added by Discern Expert. Performed By: #### 1 8059142, 5925821, 72874831, 8239626, 13382169, 2645108, 0967817, 8880725 ####[facility] [address] [place] [address] Eosinophils/Leukocytes Auto (Bld) [Pure # fraction] 0.1 E9/L Normal 0.0-0.5 [facility] Comment on above: Order Comment: Order Added by Discern Expert. Performed By: #### 1 6033734, 0462161, 00138831, 6760387, 16471491, 1708847, 2036503, 1292708 ####[address] [place] [address] Lymphocytes/100 WBC (Bld) 34.4 % Normal 14.0-50.0 [facility] Comment on above: Order Comment: Order Added by Discern Expert. Performed By: #### 1 8726808, 7872209, 99786677, 7440386, 66074227, 2276443, 8989279, 7139473 ####[address] [address] Lymphocytes/Leukocytes Auto (Bld) [Pure # fraction] 1.2 E9/L Normal 1.0-4.0 [facility] Comment on above: Order Comment: Order Added by Discern Expert. Performed By: #### 1 4283963, 9823856, 14122577, 2020628, 85300963, 4445123, 5810583, 2852333 ####[address] [place] [address] Monocytes/100 WBC (Bld) 12.8 % Normal 4.0-14.0 [facility] Comment on above: Order Comment: Order Added by Discern Expert. Performed By: #### 1 5309499, 2475509, 86488205, 9275871, 74689652, 9847823, 2502835, 5684575 ####[address] [place] [address] Monocytes/Leukocytes Auto (Bld) [Pure # fraction] 0.4 E9/L Normal 0.2-1.0 [facility] Comment on above: Order Comment: Order Added by Discern Expert. Performed By: #### 1 6706431, 4601618, 25019424, 5782383, 83389038, 5123056, 4995299, 3495665 ####[facility] [address] [place] [address] Neutrophils/100 WBC (Bld) 50.8 % Normal 36.0-75.0 [facility] Comment on above: Order Comment: Order Added by Discern Expert. Performed By: #### 1 6215840, 3431064, 43221687, 6469411, 00490434, 8118311, 6744945, 0595798 ####[facility] [address] [place] [address] Neutrophils/Leukocytes Auto (Bld) [Pure # fraction] 1.7 E9/L Low 2.0-7.5 [facility] Comment on above: Order Comment: Order Added by Discern Expert. Performed By: #### 1 9436208, 5309693, 14111834, 3401906, 36342114, 6796026, 4165606, 6116837 ####[facility] [address] [place] [address] BMPon 12-19-2022 Anion gap [Moles/Vol] 10 mmol/L Normal 6-16 [facility] Comment on above: Performed By: #### 1 5101069, 0072172, 60930602, 8267690, 95248258, 2988749, 5533059, 0045840 ####[facility] [address] [place] [address] Calcium [Mass/Vol] 9.4 mg/dL Normal 8.9-11.1 [facility] Comment on above: Performed By: #### 1 9778468, 2583179, 66156082, 5697252, 55597284, 0784091, 2025632, 9386212 ####[facility] [address] [place] [address] Chloride [Moles/Vol] 111 mmol/L Normal 101-111 [facility] Comment on above: Performed By: #### 1 9856753, 7216281, 00868394, 8579441, 31040284, 6955486, 3264848, 4683545 ####[facility] [address] [place] [address] CO2 [Moles/Vol] 25 mmol/L Normal 21-31 [facility] Comment on above: Performed By: #### 1 0510902, 4880079, 57425797, 9277502, 51831845, 3574365, 4666598, 9715229 ####[facility] [address] [place] [address] Creatinine [Mass/Vol] 1.4 mg/dL High 0.5-1.3 [facility] Comment on above: Performed By: #### 1 4102117, 0209347, 46659065, 3837452, 68446316, 0323598, 9895855, 5832634 ####[facility] [address] [place] [address] Glucose [Mass/Vol] 165 mg/dL Normal 55-199 [facility] Comment on above: Result Comment: If t his glucose result represents a fasting glucose, interpretation should refer to the following reference range: 55-99 mg/dL Performed By: #### 1 6391632, 7990996, 35454185, 8254296, 66282058, 1498525, 7851625, 7795991 ####[facility] [address] [place] [address] Potassium [Moles/Vol] 4.6 mmol/L Normal 3.5-5.3 [facility] Comment on above: Performed By: #### 1 0711235, 6829839, 57390797, 2798422, 85668333, 7962108, 2592430, 2116527 ####[facility] [address] [place] [address] Sodium [Moles/Vol] 141 mmol/L Normal 135-145 [facility] Comment on above: Performed By: #### 1 6021068, 0423768, 28751829, 1043002, 00146656, 1189328, 6712397, 2078907 ####[facility] [address] [place] [address] Urea nitrogen [Mass/Vol] 36 mg/dL High 5-21 [facility] Comment on above: Performed By: #### 1 0529254, 7342548, 22079353, 4183019, 51454263, 2351317, 8676259, 0385294 ####[facility] [address] [place] [address] Urea nitrogen/Creatinine [Mass ratio] 26 No Units High 10-20 [facility] Comment on above: Performed By: #### 1 6639251, 0997994, 52580398, 1242378, 24028178, 8731759, 4163247, 0512647 ####[facility] [address] [place] [address] CBC w/ Auto Diffon 3 Erythrocyte distribution width (RBC) [Ratio] 18.9 % High 10.9-14.2 [facility] Comment on above: Performed By: #### 1 3986424, 1059638, 27612855, 9913558, 59180435, 4816985, 3285351, 3969729 ####[facility] [address] [place] [address] Hematocrit (Bld) [Volume fraction] 32.2 % Low 34.0-46.0 [facility] Comment on above: Performed By: #### 1 2330610, 8772685, 42935644, 7781446, 07924142, 5206800, 8610808, 2559824 ####[facility] [address] [place] [address] Hemoglobin (Bld) [Mass/Vol] 10.8 g/dL Low 12.0-16.0 [facility] Comment on above: Performed By: #### 1 0337936, 8828905, 01979497, 7112064, 60012791, 6194028, 7131872, 0099880 ####[facility] [address] [place] [address] MCH (RBC) [Entitic mass] 33.5 pg Normal 27.0-34.0 [facility] Comment on above: Performed By: #### 1 5021428, 6291562, 62322260, 4051958, 50464175, 4824669, 1322434, 7761543 ####[address] [place] [address] MCHC (RBC) [Mass/Vol] 33.4 g/dL Normal 31.4-36.0 [facility] Comment on above: Performed By: #### 1 0729119, 9664675, 08583346, 0920605, 51208220, 8141646, 1658229, 1404209 ####[address] [address] MCV (RBC) [Entitic vol] 100.5 fL High 80.0-100.0 F [facility] [place] Comment on above: Performed By: #### 1 4459621, 6774845, 89640660, 3073727, 39061886, 3301193, 9246262, 2174149 ####[address] [address] Platelet mean volume (Bld) [Entitic vol] 7.0 fL Normal 6.4-10.8 [facility] Comment on above: Performed By: #### 1 9496869, 7439376, 74868240, 4781132, 75269992, 6447256, 1965168, 7249423 ####[address] [place] [address] Platelets (Bld) [#/Vol] 204.0 E9/L Normal 150. 0-500. 0 [facility] Comment on above: Performed By: #### 1 6034879, 2757023, 69402135, 9109894, 09345461, 4756436, 9821657, 5772059 ####[address] [address] RBC (Bld) [#/Vol] 3.2 E12/L Low 4.3-5.9 [facility] Comment on above: Performed By: #### 1 1670672, 6529559, 54681364, 3930042, 31453116, 9727388, 2078247, 8041874 ####[facility] [address] [place] [address] WBC corrected for nucl RBC Auto (Bld) [#/Vol] 3.4 E9/L Low 4.0-11.0 [facility] Comment on above: Performed By: #### 1 4093377, 5810328, 32094162, 7385250, 39591938, 9414932, 5004184, 3387503 ####[facility] [address] [place] [address] CHEMISTRYOrdered By: SYSTEM SYSTEM on 12-19-2022 Albumin [...] 7.0 fL Normal 6.4 - 10.8 fL [facility] HemeAutoSS Platelets (Bld) [#/Vol] 204.0 E9/L Normal 150. 0 - 500.0 E9/L [facility] HemeAutoSS RBC (Bld) [#/Vol] 3.2 E12/L Low 4.3 - 5.9 E12/L [facility] HemeAutoSS WBC corrected for nucl RBC Auto (Bld) [#/Vol] 3.4 E9/L Low 4.0 - 11.0 E9/L [facility] HemeAutoSS Hep Func Panelon 12-19-2022 Albumin [Mass/Vol] 3.5 g/dL Normal 3.3-5.0 [facility] Comment on above: Performed By: #### 1 8318828, 8395505, 85545678, 0432089, 87728680, 1590722, 6427706, 3948177 ####[facility] [address] [place] [address] Albumin/Globulin (S) [Mass conc ratio] 1.0 Low 1.1-2.2 [facility] Comment on above: Performed By: #### 1 9252780, 9329381, 54439022, 3613588, 04401702, 9404316, 8349779, 2298635 ####[facility] [address] [place] [address] ALP [Catalytic activity/Vol] 110 Int._Unit/L High 21-98 [facility] Comment on above: Performed By: #### 1 3190226, 4086314, 91195707, 0264269, 96620035, 2892207, 0406448, 7762043 ####[facility] [address] [place] [address] ALT No additional P-5'-P [Catalytic activity/Vol] 20 Int._Unit/L Normal 6-46 [facility] Comment on above: Performed By: #### 1 7910743, 0608628, 75777296, 6429592, 03236560, 2356845, 1506513, 4449333 ####[facility] [address] [place] [address] AST [Catalytic activity/Vol] 19 Int._Unit/L Normal 5-43 [facility] Comment on above: Performed By: #### 1 8377095, 6859638, 64029130, 9150108, 31149386, 7294754, 6362273, 2684970 ####[facility] [address] [place] [address] Bilirubin [Mass/Vol] 0.4 mg/dL Normal 0.0-1.1 [facility] Comment on above: Performed By: #### 1 4664133, 0597507, 49687663, 1971869, 72880006, 7998495, 0487605, 8288495 ####[address] [place] [address] Bilirubin.direct [Mass/Vol] 0.1 mg/dL Normal 0.1-0.4 [facility] Comment on above: Performed By: #### 1 1689300, 6028916, 49515379, 2433147, 19135863, 2640273, 0629529, 0995496 ####[facility] [address] [place] [address] Bilirubin.indirect [Mass or moles/Vol] 0.3 mg/dL Normal 0.1-0.9 [facility] Comment on above: Performed By: #### 1 7878388, 7276465, 85038983, 8034492, 14828175, 7633529, 9682646, 2307907 ####[facility] [address] [place] [address] Globulin (S) [Mass/Vol] 3.5 g/dL Normal 1.4-4.0 F [facility] [place] Comment on above: Performed By: #### 1 6536719, 7872079, 17013509, 5263495, 86414928, 6273574, 1923262, 3313762 ####[facility] [address] [place] [address] Protein [Mass/Vol] 7.0 g/dL Normal 6.0-7.8 [facility] Comment on above: Performed By: #### 1 9400788, 4840192, 11227638, 8218705, 97763910, 6134728, 9004524, 2013395 ####[facility] [address] [place] [address] Laboratory - Microbiology an d Antimicrobial susceptibilityOrdered By: Jeaneth Morfin on 12-19-2022 Bacteria identified Cx Nom (U) >100,000 cfu/ml Gram Negative [employer] species [facility] Magnesiumon 12-19-2022 Magnesium [Mass/Vol] 2.0 mg/dL Normal 1.3-2.4 [facility] Comment on above: Performed By: #### 1 5666542, 0776226, 50456186, 1930330, 97161034, 5051329, 1914876, 8402664 ####[facility] [address] [place] [address] PT & PTTon 12-19-2022 aPTT Coag (PPP) [Time] 26.7 second(s) Normal 25.1-36.5 [facility] Comment on above: Result Comment: Para meter [...] the same coagulation reagent and instrumentation as [facility]. Currently there are no coagulation studies available worldwide for children to 14 days, and no normal ranges. Heparin therapeutic range (represented by Anti-Factor Xa activity of 0.2 - 0.4 U/mL) corresponds to PTT of 56.6 - 109.0 sec. Performed By: #### 1 7656579, 4563102, 29981114, 3036218, 43477281, 6993435, 6839397, 3603743 ####[facility] [address] [place] [address] INR Coag (PPP) [Relative time] 1.0 {INR} Invalid Interpretation Code [facility] Comment on above: Result Comment: INR results are specifically intended to assess patients stabilized on long-term Anticoagulation therapy suggested INR?s ?Less Intensive Anticoagulation? 2.0 ? 3.0Conventional Range 3.0 ? 4.5 Performed By: #### 1 9335409, 5244502, 60343148, 4224543, 51373388, 3125665, 6002509, 1155797 ####[facility] [address] [place] [address] PT Coag (PPP) [Time] 11.5 second(s) Normal 9.4-12.5 [facility] Comment on above: Result Comment: 15 d [...] the same coagulation reagent and instrumentation as [facility]. Currently there are no coagulation studies available worldwide for children to 14 days, and no normal ranges. Performed By: #### 1 2175315, 6056791, 78330006, 3311773, 24447977, 5800007, 2984653, 0718951 ####[facility] [address] [place] [address] Pre-Arrival Noteon Pre-Arrival Note Normal [facility] Troponin 0 Hr.on 12-19-2022 Troponin I.cardiac [Mass/Vol] 9.40 pg/mL Low 10.10-27.1 0 [facility] Comment on above: Result Comment: The 95% CI (Confidence Interval) PPV (Positive Predictive Value) for myocardial infarction in females is 38 pg/mL, in males 51 pg/mL. The results should be used in conjunction with clinical conditions of myocardial infarction.(Access High Sensitivity Troponin I Instructions For Use, Gaby Hammon, November 2017) Performed By: #### 1 8687588, 1911626, 95252304, 3028661, 12111421, 3117664, 3966309, 5536792 ####[facility] [address] [place] [address] URINALYSISOrdered By: Evert Cordoba on 12-19-2022 Bacteria [...] PM) Normal Negative [facility] UA Auto SS [place].plasma/[place]. RBC (Bld) [Mass ratio] 0-3 /HPF Normal [...] PM) Invalid Interpretation Code 1.005 - 1.030 [facility] UA Auto SS UA Spec Desc Catheter 1 (12/19/22 10:25 PM) Normal [facility] UA Auto SS Comment on above: Result Comment: Mini cath specimen Urobilinogen Qn (U) 0.6772874 {Tj'U}/dL Normal 0.0 - 1.0 EU/dL [facility] UA Auto SS WBC Auto Ql (U) Trace *ABN* (12/19/22 10:25 PM) Invalid Interpretation Code Negative [facility] UA Auto SS WBC LM.HPF (Urine sed) [#/Area] 0-5 /HPF Normal 0-5/HPF [facility] UA Auto SS eGFRon 12-19-2022 GFR/1.73 sq M.predicted among non-blacks MDRD (S/P/Bld) [Vol rate/Area] 40 mL/min/1.73 m2 Low >=59 [facility] Comment on above: Order Comment: Order added by Discern Expert. Result Comment: Psych Therapist aubrey kidney disease could be indicated at eGFR's of less than 60 mL/min/1.73m2. Kidney failure is indicated at less than 15 mL/min/1.73m2. Performed By: #### 1 5165805, 1535767, 50108083, 4998465, 21653194, 3421382, 6213148, 8308169 ####[facility] [address] [place] [address] CT Spine Lumbar w/o Contrast on 12-17-2022 CT Spine Lumbar w/o Contrast Normal [facility] Consent for Treatmenton 11-21 Consent for Treatment [id number]#1.00CD:1 27 [facility] Discharge Instructionson Discharge Instructions [id number]#1.00CD:1 27 Normal [facility] ED Clinical Summaryon 2022 ED Clinical Summary Normal [facility] ED Note-Physicianon 12-18-19 ED Note-Physician [facility] Comment on above: Result Comment: Elec tronically Signed By: Gui Scruggs PA-C\.br\Date and Time Signed: 12/17/22 13:40 EDT\.br\Electronically Co-Signed By: Jeffery Murphy DO\.br\Date and Time Co-Signed: 12/17/22 18:34 EDT ED Patient Education Noteon 12-17-2022 ED Patient Education Note Normal [facility] ED Patient Summaryon 023 ED Patient Summary Normal [facility] Senior Living Recordson 12-17 Senior Living Records [id number]#1.00CD:1 27 Normal [facility] XR Hip 2-3 Views Right + Pel vison 12-17-2022 XR Hip 2-3 Views Right + Pelvis Normal [facility] XR Spine Lumbosacral 2 or 3 Viewson 12-17-2022 XR Spine Lumbosacral 2 or 3 Views Normal [facility] Family Medicine Office/Clini c Noteon 12-14-2022 Family Medicine Office/Clinic Note Normal [facility] Comment on above: Result Comment: Elec tronically Signed By: Sammy QUEZADA MD\.br\Date and Time Signed: 12/14/22 16:36 EDT ONC - Otheron 12-12-2022 ONC - Other [id number]#1.00CD:1 27 Normal [facility] ONC - Otheron 12-04-2022 ONC - Other [id number]#1.00CD:1 27 Normal [facility] ONC - Otheron 11-21-2022 ONC - Other [id number]#1.00CD:1 27 Normal [facility] XR Pelvis 1 or 2 Viewson XR Pelvis 1 or 2 Views Normal [facility] RAD - MISCon 11-20-2022 RAD - MISC [id number]#1.00CD:1 27 [facility] Family Medicine Office/Clini c Noteon 11-07-2022 Family Medicine Office/Clinic Note [facility] Comment on above: Result Comment: Elec tronically Signed By: Sammy QUEZADA MD\.br\Date and Time Signed: 11/06/22 22:21 EDT Consultation Noteon 11-07-19 Consultation Note [facility] Comment on above: Result Comment: Elec tronically Signed By: Gavino Erickson DO\.br\Date and Time Signed: 11/06/22 07:17 EDT Discharge Documentationon Discharge Documentation [id number]#1.00CD:1 27 [facility] Message from Medicareon 10-20 Message from Medicare [id number]#1.00CD:1 27 [facility] Transfer Documentson 023 Transfer Documents [id number]#1.00CD:1 27 [facility] Insurance Correspondence Off iceon 11-05-2022 Insurance Correspondence Office [id number]#1.00CD:12 7 [facility] Inpatient Clinical Summaryon 11-04-2022 Inpatient Clinical Summary [facility] Inpatient Patient Summaryon 11-04-2022 Inpatient Patient Summary [facility] Inpatient Patient Summary [facility] 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 Note - Attila e Manageron 11-04-2022 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 Note - Hospice Care Sales Consultant [facility] Comment on above: Result Comment: Elec tronically Signed By: Florence Ortega\.br\Date and Time Signed: 11/04/22 13:07 EDT CHEMISTRYOrdered By: SYSTEM SYSTEM on 11-03-2022 25-hydroxyvitamin D3 [Mass/Vol] ng/mL Low 30.0 - 100.0 ng/mL [facility] Remisol 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 Note - Attila e Manageron 11-03-2022 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 Note - Hospice Care Sales Consultant [facility] Comment on above: Result Comment: Elec tronically Signed By: Florence Ortega\.br\Date and Time Signed: 11/03/22 10:38 EDT Progress Note-Physicianon Progress Note-Physician Normal F [facility] [place] Comment on above: Result Comment: Elec tronically Signed By: Trevor HANKS, Wyatt\.br\Date and Time Signed: 11/03/22 08:08 EDT RPR with Conf Rfxon 11-04-19 23 Reagin Ab RPR Ql (S) Non-Reactive Invalid Interpretation Code Non Reactive [facility] Comment on above: Result Comment: Perf ormed at: [facility] [address] [id number] PhD [place] Avelar Performed By: #### 2 323683, 2180054, 126410168, 97784870 ####[facility] [address] [place] [address] Vitamin D 25 Hydroxyon 11-03 25-hydroxyvitamin D3 [Mass/Vol] ng/mL Low 30.0-100.0 [facility] Comment on above: Result Comment: Vit beltran D deficiency has been defined as a level of serum 25-OH vitamin D less than 20 ng/mL (1,2) by the [place] of Medicine and an Endocrine Society practice guideline. The Endocrine Society further defined vitamin D insufficiency as a level between 21 and 29 ng/mL (2). 1. IOM ([place] of Medicine). 2010. Dietary reference intakes for calcium and D. [place]: The National Academies Press. 2. Katlin MF, Taylor [place], Jarad DUKE, et al. Evaluation, treatment, and prevention of vitamin D deficiency: an Endocrine Society clinical practice guideline. JCEM. 2010; 96 (7):1911-30. Performed By: #### 5 [id number] ####[facility] [address] [place] [address] Auto Diffon 11-02-2022 Basophils/100 WBC (Bld) 1.2 % Normal 0.0-2.0 [facility] Comment on above: Order Comment: Order Added by Discern Expert. Performed By: #### 2 014823, 1480047, 04989708, 3226469, 22414706, 8054169 ####[address] [address] Basophils/Leukocytes Auto (Bld) [Pure # fraction] 0.1 E9/L Normal 0.0-0.2 [facility] Comment on above: Order Comment: Order Added by Discern Expert. Performed By: #### 2 953655, 9836953, 39643845, 3718948, 92751504, 0501682 ####[address] [address] Eosinophils/100 WBC (Bld) 3.3 % Normal 0.0-8.0 [facility] Comment on above: Order Comment: Order Added by Discern Expert. Performed By: #### 2 806465, 3739807, 71141448, 5331771, 91721050, 5019651 ####[address] [address] Eosinophils/Leukocytes Auto (Bld) [Pure # fraction] 0.2 E9/L Normal 0.0-0.5 [facility] Comment on above: Order Comment: Order Added by Discern Expert. Performed By: #### 2 818474, 4942517, 73398080, 3169753, 11966865, 4031236 ####[address] [address] Lymphocytes/100 WBC (Bld) 24.6 % Normal 14.0-50.0 [facility] Comment on above: Order Comment: Order Added by Discern Expert. Performed By: #### 2 473812, 7794587, 98809646, 5334918, 63535929, 8852174 ####[address] [address] Lymphocytes/Leukocytes Auto (Bld) [Pure # fraction] 1.6 E9/L Normal 1.0-4.0 [facility] Comment on above: Order Comment: Order Added by Discern Expert. Performed By: #### 2 129944, 2532254, 24685395, 4073280, 43614605, 8244180 ####[facility] [address] [place] [address] Monocytes/100 WBC (Bld) 5.0 % Normal 4.0-14.0 [facility] Comment on above: Order Comment: Order Added by Discern Expert. Performed By: #### 2 780611, 6591542, 80986300, 6884742, 77015518, 9168874 ####[facility] [address] [place] [address] Monocytes/Leukocytes Auto (Bld) [Pure # fraction] 0.3 E9/L Normal 0.2-1.0 [facility] Comment on above: Order Comment: Order Added by Discern Expert. Performed By: #### 2 559561, 5738807, 43422036, 1164320, 05564380, 4382801 ####[address] [address] Neutrophils/100 WBC (Bld) 65.9 % Normal 36.0-75.0 [facility] Comment on above: Order Comment: Order Added by Discern Expert. Performed By: #### 2 552028, 0294844, 38702560, 1197570, 90996597, 6379843 ####[facility] [address] [place] [address] Neutrophils/Leukocytes Auto (Bld) [Pure # fraction] 4.4 E9/L Normal 2.0-7.5 [facility] Comment on above: Order Comment: Order Added by Discern Expert. Performed By: #### 2 181257, 2525595, 33384217, 6625492, 36554845, 7535886 ####[facility] [address] [place] [address] BMPon 11-02-2022 Creatinine [Mass/Vol] 1.3 mg/dL Normal 0.5-1.3 [facility] Comment on above: Performed By: #### 2 218446, 3822637, 25693629, 3854527, 50785955, 2336511 ####[facility] [address] [place] [address] Urea nitrogen [Mass/Vol] 26 mg/dL High 5-21 [facility] Comment on above: Performed By: #### 2 169968, 5013438, 19261171, 7696031, 49684302, 3857646 ####[facility] [address] [place] [address] Urea nitrogen/Creatinine [Mass ratio] 20 No Units Normal 10-20 [facility] Comment on above: Performed By: #### 2 526504, 8418901, 91513830, 5776494, 49059376, 9941099 ####[facility] [address] [place] [address] Anion gap [Moles/Vol] 15 mmol/L Normal 6-16 [facility] Comment on above: Performed By: #### 2 004195, 3594999, 45332494, 3944070, 65783041, 1538447 ####[facility] [address] [place] [address] Calcium [Mass/Vol] 9.1 mg/dL Normal 8.9-11.1 [facility] Comment on above: Performed By: #### 2 997626, 3693257, 69612942, 0863082, 64280456, 3510206 ####[facility] [address] [place] [address] Chloride [Moles/Vol] 105 mmol/L Normal 101-111 [facility] Comment on above: Performed By: #### 2 771338, 8692284, 17484058, 4971617, 29636102, [id number] ####[facility] [address] [place] [address] CO2 [Moles/Vol] 22 mmol/L Normal 21-31 [facility] Comment on above: Performed By: #### 2 037867, 2417263, 25336242, 8170175, 76888888, 8164602 ####[facility] [address] [place] [address] Glucose [Mass/Vol] 130 mg/dL Normal 55-199 [facility] Comment on above: Result Comment: If t his glucose result represents a fasting glucose, interpretation should refer to the following reference range: 55-99 mg/dL Performed By: #### 2 309643, 4935724, 43629063, 6965286, 10952047, 1547162 ####[facility] [address] [place] [address] Potassium [Moles/Vol] 4.2 mmol/L Normal 3.5-5.3 [facility] Comment on above: Performed By: #### 2 646902, 3284086, 14325334, 1689326, 93417551, 1781977 ####[facility] [address] [place] [address] Sodium [Moles/Vol] 138 mmol/L Normal 135-145 [facility] Comment on above: Performed By: #### 2 489671, 6831372, 15060029, 9769825, 68120218, 7492386 ####[facility] [address] [place] [address] CBC w/ Auto Diffon 3 Erythrocyte distribution width (RBC) [Ratio] 16.3 % High 10.9-14.2 [facility] Comment on above: Performed By: #### 2 640602, 6307192, 60227671, 5481682, 18576691, 7250803 ####[facility] [address] [place] [address] Hematocrit (Bld) [Volume fraction] 36.5 % Normal 34.0-46.0 [facility] Comment on above: Performed By: #### 2 471905, 1244638, 29230310, 8092701, 41325587, 4406817 ####[facility] [address] [place] [address] Hemoglobin (Bld) [Mass/Vol] 12.1 g/dL Normal 12.0-16.0 [facility] Comment on above: Performed By: #### 2 775832, 6422205, 53011290, 7222597, 63600506, 8747976 ####[facility] [address] [place] [address] MCH (RBC) [Entitic mass] 32.9 pg Normal 27.0-34.0 [facility] Comment on above: Performed By: #### 2 532755, 5115627, 88550008, 4849645, 39714327, 7101672 ####[facility] [address] [place] [address] MCHC (RBC) [Mass/Vol] 33.1 g/dL Normal 31.4-36.0 [facility] Comment on above: Performed By: #### 2 238832, 5963035, 69509091, 7616301, 13272219, 5218192 ####[address] [address] MCV (RBC) [Entitic vol] 99.3 fL Normal 80.0-100.0 F [facility] [place] Comment on above: Performed By: #### 2 790165, 2525012, 94435985, 6404214, 47304378, 1654864 ####[address] [address] Platelet mean volume (Bld) [Entitic vol] 7.3 fL Normal 6.4-10.8 [facility] Comment on above: Performed By: #### 2 762784, 5504623, 71560597, 5683180, 33107380, 0207437 ####[facility] [address] [place] [address] Platelets (Bld) [#/Vol] 229.0 E9/L Normal 150. 0-500. 0 [facility] Comment on above: Performed By: #### 2 499074, 1187441, 90381700, 2351841, 68743185, 1467617 ####[address] [place] [address] RBC (Bld) [#/Vol] 3.7 E12/L Low 4.3-5.9 [facility] Comment on above: Performed By: #### 2 751526, 0931131, 11662850, 5812241, 11503563, 0870661 ####[facility] [address] [place] [address] WBC corrected for nucl RBC Auto (Bld) [#/Vol] 6.6 E9/L Normal 4.0-11.0 [facility] Comment on above: Performed By: #### 2 543839, 3438375, 70738954, 6030699, 00796573, 0693444 ####[facility] [address] [place] [address] CT Pelvis w/o Contraston CT Pelvis w/o Contrast Normal [facility] ED Clinical Summaryon 2022 ED Clinical Summary Normal [facility] ED Note-Physicianon 11-03-19 ED Note-Physician Radiologist has read the x-ray of the sacrum and there is discrepancy. He is reading he has a left pubic rami fracture. The patient has been admitted to the hospital.The hospitalist notified. Normal [facility] Comment on above: Result Comment: Elec tronically Signed By: Alok Cai M.D.\.br\Date and Time Signed: 11/02/22 07:41 EDT ED Note-Physician Normal [facility] Comment on above: Result Comment: Elec tronically Signed By: Kelly Meredith DO.br\Date and Time Signed: 11/02/22 00:27 EDT ED Patient Education Noteon 11-02-2022 ED Patient Education Note Normal [facility] ED Patient Summaryon 023 ED Patient Summary Normal [facility] ED Traumaon 11-02-2022 ED Trauma [id number]#[id number]:1 27 Normal [facility] FolateOrdered By: SYSTEM SYS TEM on 11-02-2022 Folate [Mass/Vol] 11.4 ng/mL Normal >=6.7 [facility] Comment on above: Performed By: #### 2 473275, 7609058, 625019528, 00682265 ####[facility] [address] [place] [address] Hep Func Panelon 11-02-2022 Albumin [Mass/Vol] 3.5 g/dL Normal 3.3-5.0 [facility] Comment on above: Performed By: #### 2 815700, 6573005, 29583778, 5643517, 16223831, 0495294 ####[address] [place] [address] Albumin/Globulin (S) [Mass conc ratio] 1.0 Low 1.1-2.2 [facility] Comment on above: Performed By: #### 2 574987, 4523858, 41449947, 6406375, 81339616, 9147037 ####[address] [address] ALP [Catalytic activity/Vol] 110 Int._Unit/L High 21-98 [facility] Comment on above: Performed By: #### 2 510677, 0811897, 69326313, 8908930, 52875846, 4425978 ####[address] [address] ALT No additional P-5'-P [Catalytic activity/Vol] 13 Int._Unit/L Normal 6-46 [facility] Comment on above: Performed By: #### 2 633755, 9291545, 93825941, 9732850, 98355656, 7825387 ####[facility] [address] [place] [address] AST [Catalytic activity/Vol] 20 Int._Unit/L Normal 5-43 [facility] Comment on above: Performed By: #### 2 505714, 5108514, 83750949, 4310819, 47259727, 7841515 ####[address] [place] [address] Bilirubin [Mass/Vol] 0.9 mg/dL Normal 0.0-1.[address] [facility] Comment on above: Performed By: #### 2 591937, 0403146, 16789046, 4553504, 27903731, 5363838 ####[address] [place] [address] Bilirubin.direct [Mass/Vol] 0.2 mg/dL Normal 0.1-0.4 [facility] Comment on above: Performed By: #### 2 990291, 9614148, 02223531, 8753058, 35588400, 2780324 ####[address] [address] Bilirubin.indirect [Mass or moles/Vol] 0.7 mg/dL Normal 0.1-0.9 [facility] Comment on above: Performed By: #### 2 448787, 7248834, 34350529, 3160569, 55566876, 2273532 ####[facility] [address] [place] [address] Globulin (S) [Mass/Vol] 3.4 g/dL Normal 1.4-4.0 F [facility] [place] Comment on above: Performed By: #### 2 746311, 6022501, 11344227, 2110691, 74277039, 5448720 ####[address] [place] [address] Protein [Mass/Vol] 6.9 g/dL Normal 6.0-7.8 [facility] Comment on above: Performed By: #### 2 302914, 7269082, 31237588, 8277033, 63470662, 9337229 ####[address] [place] [address] Insurance Correspondence Off ice11-02-2022 Insurance Correspondence Office [id number]#[id number]:12 7 Normal [facility] 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 Note - Attila e Manageron 11-02-2022 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 Note - Hospice Care Sales Consultant Normal [facility] Comment on above: Result Comment: Elec tronically Signed By: Florence Ortega\.br\Date and Time Signed: 11/02/22 14:23 EDT 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 Note - Rafat n 11-02-2022 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 Note - OT Normal [facility] 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 Note - Soc ial Workeron 11-02-2022 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 Note - Line Construction Superintendent Normal [facility] Monitor Recordon 11-02-2022 Monitor Record [id number]#[id number]:1 27 Normal [facility] Progress Note-Physicianon Progress Note-Physician Normal [facility] Comment on above: Result Comment: Elec tronically Signed By: Gavino Erickson DO\.br\Date and Time Signed: 11/02/22 15:25 EDT Progress Note-Physician Normal F [facility] [place] Comment on above: Result Comment: Elec tronically Signed By: Trevor HANKS, Wyatt\.br\Date and Time Signed: 11/02/22 12:22 EDT Reference Laboratory Testing Ordered By: Generated DomainUser on 11-02-2022 Reagin Ab RPR Ql (S) Non-Reactive Invalid Interpretation Code Non Reactive [facility] SendOutsSS Comment on above: Result Comment: Perf ormed at: [facility] [address] [id number] PhD [place] Avelar TSH With T4fr ReflexOrdered By: SYSTEM SYSTEM on 11-02-2022 TSH Qn 0.93 m[IU]/L Normal 0.34-5.60 [facility] Comment on above: Performed By: #### 2 480505, 5816979, 887855974, 26423826 ####[facility] [address] [place] [address] Troponin 0 Hr.on 11-02-2022 Troponin I.cardiac [Mass/Vol] 7.50 pg/mL Low 10.10-27.1 0 [facility] Comment on above: Result Comment: The 95% CI (Confidence Interval) PPV (Positive Predictive Value) for myocardial infarction in females is 38 pg/mL, in males 51 pg/mL. The results should be used in conjunction with clinical conditions of myocardial infarction.(Access High Sensitivity Troponin I Instructions For Use, Gaby Hammon, November 2017) Performed By: #### 2 303842, 8923544, 39701377, 9580592, 83325111, 1658516 ####[facility] [address] [place] [address] UA With Cult Reflexon 2022 Bacteria LM Ql (Urine sed) TRACE Normal Trace [facility] Comment on above: Order Comment: Urina ry Catheter Insertion triggered Urinalysis With Culture Reflex order by discern. Performed By: #### 1 3554190 ####[facility] [address] [place] [address] Bilirubin Ql (U) Negative Normal Negative [facility] Comment on above: Order Comment: Urina ry Catheter Insertion triggered Urinalysis With Culture Reflex order by discern. Performed By: #### 1 6078076 ####[facility] [address] [place] [address] Clarity (U) CLEAR Normal Clear [facility] Comment on above: Order Comment: Urina ry Catheter Insertion triggered Urinalysis With Culture Reflex order by discern. Performed By: #### 1 9308154 ####[facility] [address] [place] [address] Color (U) YELLOW Normal Yellow [facility] Comment on above: Order Comment: Urina ry Catheter Insertion triggered Urinalysis With Culture Reflex order by discern. Performed By: #### 1 4489821 ####[facility] [address] [place] [address] Epithelial cells.squamous LM.HPF (Urine sed) [#/Area] 3-4 Normal 0-2 [facility] Comment on above: Order Comment: Urina ry Catheter Insertion triggered Urinalysis With Culture Reflex order by discern. Performed By: #### 1 4418230 ####[facility] [address] [place] [address] Glucose Test strip (U) [Mass/Vol] Negative Normal Negative [facility] Comment on above: Order Comment: Urina ry Catheter Insertion triggered Urinalysis With Culture Reflex order by discern. Performed By: #### 1 1397303 ####[address] [address] Hemoglobin Ql (U) TRACE Abnormal Negative [facility] Comment on above: Order Comment: Urina ry Catheter Insertion triggered Urinalysis With Culture Reflex order by discern. Performed By: #### 1 6650732 ####[address] [address] Ketones (U) [Mass/Vol] TRACE Abnormal Negative [facility] Comment on above: Order Comment: Urina ry Catheter Insertion triggered Urinalysis With Culture Reflex order by discern. Performed By: #### 1 1359085 ####[address] [address] [place].plasma/[place]. RBC (Bld) [Mass ratio] 4-20 Normal 0-3 [facility] Comment on above: Order Comment: Urina ry Catheter Insertion triggered Urinalysis With Culture Reflex order by discern. Performed By: #### 1 2467029 ####[address] [address] Nitrite Ql (U) Negative Normal Negative [facility] Comment on above: Order Comment: Urina ry Catheter Insertion triggered Urinalysis With Culture Reflex order by discern. Performed By: #### 1 0249778 ####[address] [address] pH (U) 6.0 [pH] Invalid Interpretation Code 5.0-9.0 [facility] Comment on above: Order Comment: Urina ry Catheter Insertion triggered Urinalysis With Culture Reflex order by discern. Performed By: #### 1 0333568 ####[address] [address] Protein (U) [Mass/Vol] TRACE Abnormal Negative [facility] Comment on above: Order Comment: Urina ry Catheter Insertion triggered Urinalysis With Culture Reflex order by discern. Performed By: #### 1 7978496 ####[address] [place] [address] Specific gravity (U) [Rel density] 1.025 Invalid Interpretation Code 1.005-1.03 0 [facility] Comment on above: Order Comment: Urina ry Catheter Insertion triggered Urinalysis With Culture Reflex order by discern. Performed By: #### 1 3978887 ####[address] [address] Type of Urine collection method Catheter Normal [facility] Comment on above: Order Comment: Urina ry Catheter Insertion triggered Urinalysis With Culture Reflex order by discern. Performed By: #### 1 7172384 ####[address] [address] Urobilinogen Qn (U) 1.0 {Tj'U}/dL Normal 0.0-1.0 [facility] Comment on above: Order Comment: Urina ry Catheter Insertion triggered Urinalysis With Culture Reflex order by discern. Performed By: #### 1 5429161 ####[address] [address] WBC Auto Ql (U) Negative Normal Negative [facility] Comment on above: Order Comment: Urina ry Catheter Insertion triggered Urinalysis With Culture Reflex order by discern. Performed By: #### 1 5206613 ####[address] [address] WBC LM.HPF (Urine sed) [#/Area] 0-5 Normal 0-5 [facility] Comment on above: Order Comment: Urina ry Catheter Insertion triggered Urinalysis With Culture Reflex order by discern. Performed By: #### 1 9154130 ####[address] [address] Bilirubin Ql (U) Negative Normal Negative [facility] Comment on above: Performed By: #### 1 1889038 ####[address] [address] Clarity (U) SL CLOUDY Invalid Interpretation Code [facility] Comment on above: Performed By: #### 1 5468585 ####[address] [address] Color (U) YELLOW Normal Yellow [facility] Comment on above: Performed By: #### 1 5917333 ####[address] [address] Epithelial cells.squamous LM.HPF (Urine sed) [#/Area] 0-2 Normal 0-2 [facility] Comment on above: Performed By: #### 1 3896268 ####[address] [address] Glucose Test strip (U) [Mass/Vol] Negative Normal Negative [facility] Comment on above: Performed By: #### 1 7618264 ####[address] [address] Hemoglobin Ql (U) 3+ Abnormal Negative [facility] Comment on above: Performed By: #### 1 3672549 ####[address] [address] Ketones (U) [Mass/Vol] TRACE Invalid Interpretation Code Negative [facility] Comment on above: Performed By: #### 1 9824830 ####[address] [address] [place].plasma/[place]. RBC (Bld) [Mass ratio] 21-30 Abnormal 0-3 [facility] Comment on above: Performed By: #### 1 4478222 ####[address] [address] Mucus Ql (Urine sed) 1+ Normal Fish [facility] Comment on above: Performed By: #### 1 5828670 ####[address] [address] Nitrite Ql (U) Negative Normal Negative [facility] Comment on above: Performed By: #### 1 7159256 ####[address] [address] pH (U) 6.0 [pH] Invalid Interpretation Code 5.0-9.0 [facility] Comment on above: Performed By: #### 1 7637296 ####[facility] [address] [place] [address] Protein (U) [Mass/Vol] 1+ Abnormal Negative Fi [facility] Comment on above: Performed By: #### 1 3388154 ####[address] [address] Specific gravity (U) [Rel density] 1.025 Invalid Interpretation Code 1.005-1.03 0 [facility] Comment on above: Performed By: #### 1 5106461 ####[address] [address] Type of Urine collection method Clean Catch Normal [facility] Comment on above: Performed By: #### 1 1103733 ####[address] [address] Urobilinogen Qn (U) 2.0 {Tj'U}/dL Abnormal 0.0-1.0 [facility] Comment on above: Performed By: #### 1 3639175 ####[facility] [address] [place] [address] WBC Auto Ql (U) Negative Normal Negative [facility] Comment on above: Performed By: #### 1 8378617 ####[address] [address] WBC LM.HPF (Urine sed) [#/Area] 0-5 Normal 0-5 [facility] Comment on above: Performed By: #### 1 4548897 ####[address] [address] URINALYSISOrdered By: Dianne Villa on 11-02-2022 Bacteria [...] Interpretation Code Negative [facility] UA Auto SS [place].plasma/[place]. RBC (Bld) [Mass ratio] 4-20 /HPF Normal 0-3/HPF [facility] UA Auto SS Nitrite Ql (U) Negative (11/02/22 5:30 PM) Normal Negative [facility] UA Auto SS pH (U) 6.0 *NA* (11/02/22 5:30 PM) Invalid Interpretation Code 5.0 - 9.0 [facility] UA Auto SS Protein (U) [Mass/Vol] Trace *ABN* (11/02/22 5:30 PM) Invalid Interpretation Code Negative [facility] UA Auto SS Specific gravity (U) [Rel density] 1.025 *NA* (11/02/22 5:30 PM) Invalid Interpretation Code 1.005 - 1.030 [facility] UA Auto SS UA Spec Desc Catheter (11/02/22 5:30 PM) Normal [facility] UA Auto SS Urobilinogen Qn (U) 1.6259859 {Tj'U}/dL Normal 0.0 - 1.0 EU/dL [facility] UA Auto SS WBC Auto Ql (U) Negative (11/02/22 5:30 PM) Normal Negative [facility] UA Auto SS WBC LM.HPF (Urine sed) [#/Area] 0-5 /HPF Normal 0-5/HPF [facility] UA Auto SS Vit [id number] By: SYSTEM SY STEM on 11-02-2022 Cobalamin (Vitamin B12) [Mass/Vol] 470 pg/mL Normal 50-1500 [facility] Comment on above: Performed By: #### 2 087186, 8290839, 090376560, 77174644 ####[facility] [address] [place] [address] XR Chest Single Viewon 11-02 XR Chest Single View Normal Fish er [facility] XR Pelvis 1 or 2 Viewson XR Pelvis 1 or 2 Views Normal Fi [address] [facility] XR Sacrum and Coccyx Min 2 V iewson 11-02-2022 XR Sacrum and Coccyx Min 2 Views Normal [facility] eGFRon 11-02-2022 GFR/1.73 sq M.predicted among non-blacks MDRD (S/P/Bld) [Vol rate/Area] 43 mL/min/1.73 m2 Low >=59 [facility] Comment on above: Order Comment: Order added by Discern Expert. Result Comment: Psych Therapist aubrey kidney disease could be indicated at eGFR's of less than 60 mL/min/1.73m2. Kidney failure is indicated at less than 15 mL/min/1.73m2. Performed By: #### 2 102909, 0850692, 26626462, 3645851, 07010887, 3360754 ####[facility] [address] [place] [address] CHEMISTRYOrdered By: SYSTEM SYSTEM on 11-01-2022 Albumin [...] - 4.0 gm/dL [facility] Glucose [Mass/Vol] 130 mg/dL Normal 55 - 199 mg/dL FT [...] for Treatmenton 10-20 Consent for Treatment [id number]#[id number]:12 7 Normal [facility] HEMATOLOGYOrdered By: SYSTEM SYSTEM on 11-01-2022 Basophils/100 [...] - 7.5 E9/L [facility] HemeAutoSS HEMATOLOGYOrdered By: Lisseth Valenzuela on 11-01-2022 Erythrocyte distribution width (RBC) [Ratio] 16.3 % High 10.9 - 14.2 % [facility] HemeAutoSS Hematocrit (Bld) [Volume fraction] 36.5 % Normal 34.0 - 46.0 % [facility] HemeAutoSS Hemoglobin (Bld) [Mass/Vol] 12.1 g/dL Normal [...] Interpretation Code Negative [facility] UA Auto SS [place].plasma/[place]. RBC (Bld) [Mass ratio] 21-30 /HPF Invalid [...] Desc Clean Catch (11/01/22 11:20 PM) Normal [facility] UA Auto SS Urobilinogen Qn (U) 2.8188831 {Tj'U}/dL Inv alid Interpretation Code 0.0 - 1.0 EU/dL [facility] UA Auto SS WBC Auto Ql (U) Negative (11/01/22 11:20 PM) Normal Negative [facility] UA Auto SS WBC LM.HPF (Urine sed) [#/Area] 0-5 /HPF Normal 0-5/HPF [facility] UA Auto SS ONC - Otheron 10-30-2022 ONC - Other [id number]#1.00CD:1 27 Normal [facility] 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 Note - Soc ial Workeron 10-05-2022 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 Note - Line Construction Superintendent Normal [facility] Oncology Progress Noteon Oncology Progress Note Normal [facility] Consent for Treatmenton Consent for Treatment [id number]#[id number]:12 7 Normal [facility] CA 27 29on 09-26-2022 Cancer Ag 27-29 Qn 17.7 unit/mL Invalid Interpretation Code 0.0-38.6 [facility] Comment on above: Result Comment: [employer] Immunochemiluminometric Methodology (ICMA)Values obtained with different assay methods or kits cannot be usedinterchangeably. Results cannot be interpreted as absolute evidenceof the presence or absence of malignant disease.Performed at: [facility] [id number] PhD [place] Avelar Performed By: #### 1 5875710, 0064942, 8834716, 70361888, 2592496 ####[facility] [address] [place] [address] Auto Diffon 09-25-2022 Basophils/100 WBC (Bld) 3.0 % High 0.0-2.0 F [facility] [place] Comment on above: Order Comment: Order Added by Discern Expert. Performed By: #### 1 2823052, 4192412, 8772124, 27618381, 8343378 ####[facility] [address] [place] [address] Basophils/Leukocytes Auto (Bld) [Pure # fraction] 0.1 E9/L Normal 0.0-0.2 [facility] Comment on above: Order Comment: Order Added by Discern Expert. Performed By: #### 1 5776142, 4734831, 6628627, 97269991, 3440449 ####[facility] [address] [place] [address] Eosinophils/100 WBC (Bld) 3.1 % Normal 0.0-8.0 [facility] Comment on above: Order Comment: Order Added by Discern Expert. Performed By: #### 1 5217536, 7357536, 3587424, 10075145, 5725905 ####[address] [place] [address] Eosinophils/Leukocytes Auto (Bld) [Pure # fraction] 0.1 E9/L Normal 0.0-0.5 [facility] Comment on above: Order Comment: Order Added by Discern Expert. Performed By: #### 1 3914181, 4425183, 6607951, 53182144, 4371767 ####[address] [place] [address] Lymphocytes/100 WBC (Bld) 37.1 % Normal 14.0-50.0 [facility] Comment on above: Order Comment: Order Added by Discern Expert. Performed By: #### 1 1429386, 5182953, 4787067, 10219525, 9413839 ####[address] [place] [address] Lymphocytes/Leukocytes Auto (Bld) [Pure # fraction] 1.3 E9/L Normal 1.0-4.0 [facility] Comment on above: Order Comment: Order Added by Faviola Expert. Performed By: #### 1 3857233, 2659081, 5531477, 30532875, 1359090 ####[address] [place] [address] Monocytes/100 WBC (Bld) 8.5 % Normal 4.0-14.0 [facility] Comment on above: Order Comment: Order Added by Discern Expert. Performed By: #### 1 5546143, 1197961, 2676899, 75903441, 6083555 ####[address] [place] [address] Monocytes/Leukocytes Auto (Bld) [Pure # fraction] 0.3 E9/L Normal 0.2-1.0 [facility] Comment on above: Order Comment: Order Added by Discern Expert. Performed By: #### 1 3882474, 9469198, 8719924, 47706935, 1045330 ####[address] [place] [address] Neutrophils/100 WBC (Bld) 48.3 % Normal 36.0-75.0 [facility] Comment on above: Order Comment: Order Added by Discern Expert. Performed By: #### 1 9346561, 6737618, 4815923, 05827334, 2985598 ####[address] [address] Neutrophils/Leukocytes Auto (Bld) [Pure # fraction] 1.7 E9/L Low 2.0-7.5 [facility] Comment on above: Order Comment: Order Added by Discern Expert. Performed By: #### 1 8208433, 8500815, 3027710, 04245009, 7080212 ####[address] [address] CBC w/ Auto Diffon 3 Erythrocyte distribution width (RBC) [Ratio] 16.6 % High 10.9-14.2 [facility] Comment on above: Performed By: #### 1 1992042, 8346638, 3103593, 21094388, 7884861 ####[address] [place] [address] Hematocrit (Bld) [Volume fraction] 29.4 % Low 34.0-46.0 [facility] Comment on above: Performed By: #### 1 7616526, 4357356, 1839057, 14941235, 8918818 ####[address] [place] [address] Hemoglobin (Bld) [Mass/Vol] 10.0 g/dL Low 12.0-16.0 [facility] Comment on above: Performed By: #### 1 3231170, 8086507, 5444669, 03191233, 9142556 ####[facility] [address] [place] [address] MCH (RBC) [Entitic mass] 34.5 pg High 27.0-34.0 [facility] Comment on above: Performed By: #### 1 3199441, 9666710, 0676754, 26091222, 2627947 ####[place] [address] [place] [address]157 MCHC (RBC) [Mass/Vol] 34.0 g/dL Normal 31.4-36.0 [facility] Comment on above: Performed By: #### 1 2133537, 0114705, 2730014, 44145261, 2465836 ####[place] [address] MCV (RBC) [Entitic vol] 101.5 fL High 80.0-100.0 [facility] [place] Comment on above: Performed By: #### 1 2675982, 7739034, 5143018, 63757869, 4725023 ####[address] [address] Platelet mean volume (Bld) [Entitic vol] 8.0 fL Normal 6.4-10.8 [facility] Comment on above: Performed By: #### 1 6134580, 4071741, 8498283, 95494867, 8832887 ####[address] [place] [address] Platelets (Bld) [#/Vol] 177.0 E9/L Normal 150. 0-500. 0 [facility] Comment on above: Performed By: #### 1 0964103, 4291284, 5366419, 66989878, 8206311 ####[place] [address] RBC (Bld) [#/Vol] 2.9 E12/L Low 4.3-5.9 [facility] Comment on above: Performed By: #### 1 2516421, 1889176, 5006436, 72907718, 2160039 ####[facility] [address] [place] [address] WBC corrected for nucl RBC Auto (Bld) [#/Vol] 3.4 E9/L Low 4.0-11.0 [facility] Comment on above: Performed By: #### 1 5160576, 7817835, 7538595, 29537976, 7495383 ####[facility] [address] [place] [address] CHEMISTRYOrdered By: SYSTEM SYSTEM on 09-25-2022 Albumin [...] 53 mL/min/1.73 m2 Low >=59mL/min /1.73 m2 [facility] Chem S Globulin (S) [Mass/Vol] 4.0 g/dL Normal 1.4 - 4.0 gm/dL [facility] Remisol Glucose [Mass/Vol] 134 mg/dL Normal 55 - 199 mg/dL [facility] Remisol Potassium [Moles/Vol] 3.8 mmol/L Normal 3.5 - 5.3 mmol/L [facility] Remisol Protein [Mass/Vol] 7.1 g/dL Normal 6.0 - 7.8 gm/dL [facility] Remisol Sodium [Moles/Vol] 140 mmol/L Normal 135 - 145 mmol/L [facility] Remisol Urea nitrogen [Mass/Vol] 24 mg/dL High 5 - 21 mg/dL [facility] Remisol Urea nitrogen/Creatinine [Mass ratio] 22 mg/mg High 10 - 20 [facility] Remisol CMPon 09-25-2022 Albumin [Mass/Vol] 3.1 g/dL Low 3.3-5.0 [facility] Comment on above: Performed By: #### 1 2013921, 7117912, 3323501, 87424900, 1337676 ####[facility] [address] [place] [address] Albumin/Globulin (S) [Mass conc ratio] 0.8 Low 1.1-2.2 [facility] Comment on above: Performed By: #### 1 4028125, 8025304, 0242033, 50981648, 7548065 ####[facility] [address] [place] [address] ALP [Catalytic activity/Vol] 131 Int._Unit/L High 21-98 [facility] Comment on above: Performed By: #### 1 0986740, 1334261, 9863600, 42595355, 0261943 ####[facility] [address] [place] [address] ALT No additional P-5'-P [Catalytic activity/Vol] 13 Int._Unit/L Normal 6-46 [facility] Comment on above: Performed By: #### 1 1458768, 9425313, 0919237, 17214531, 5045891 ####[facility] [address] [place] [address] Anion gap [Moles/Vol] 5 mmol/L Low 6-16 [facility] Comment on above: Performed By: #### 1 0696705, 6886067, 3779245, 95443899, 0236150 ####[facility] [address] [place] [address] AST [Catalytic activity/Vol] 16 Int._Unit/L Normal 5-43 [facility] Comment on above: Performed By: #### 1 6224277, 0166404, 4713008, 88347996, 4884579 ####[facility] [address] [place] [address] Bilirubin [Mass/Vol] 0.5 mg/dL Normal 0.0-1.1 [facility] Comment on above: Performed By: #### 1 6970808, 4625362, 4560760, 20208891, 1633141 ####[facility] [address] [place] [address] Calcium [Mass/Vol] 8.9 mg/dL Normal 8.9-11.1 [facility] Comment on above: Performed By: #### 1 2817392, 5946847, 4481480, 74312928, 5368274 ####[facility] [address] [place] [address] Chloride [Moles/Vol] 114 mmol/L High 101-111 [facility] Comment on above: Performed By: #### 1 3622714, 2775202, 4543842, 63821595, 1593470 ####[facility] [address] [place] [address] CO2 [Moles/Vol] 25 mmol/L Normal 21-31 [facility] Comment on above: Performed By: #### 1 5596306, 2481642, 8767809, 30129916, 3393812 ####[facility] [address] [place] [address] Creatinine [Mass/Vol] 1.1 mg/dL Normal 0.5-1.3 [facility] Comment on above: Performed By: #### 1 4310573, 6935842, 4324089, 95527460, 2938609 ####[facility] [address] [place] [address] Globulin (S) [Mass/Vol] 4.0 g/dL Normal 1.4-4.0 [facility] Comment on above: Performed By: #### 1 8138996, 3141652, 2699959, 31499835, 3784668 ####[facility] [address] [place] [address] Glucose [Mass/Vol] 134 mg/dL Normal 55-199 [facility] Comment on above: Result Comment: If t his glucose result represents a fasting glucose, interpretation should refer to the following reference range: 55-99 mg/dL Performed By: #### 1 7986619, 9113958, 6847522, 02151563, 4535254 ####[facility] [address] [place] [address] Potassium [Moles/Vol] 3.8 mmol/L Normal 3.5-5.3 [facility] Comment on above: Performed By: #### 1 3056642, 8185785, 2234471, 75565016, 7999823 ####[facility] [address] [place] [address] Protein [Mass/Vol] 7.1 g/dL Normal 6.0-7.8 [facility] Comment on above: Performed By: #### 1 8880110, 5716047, 8485604, 28844059, 8062674 ####[facility] [address] [place] [address] Sodium [Moles/Vol] 140 mmol/L Normal 135-145 [facility] Comment on above: Performed By: #### 1 5371795, 8211033, 8216463, 64155782, 5374724 ####[facility] [address] [place] [address] Urea nitrogen [Mass/Vol] 24 mg/dL High 5-21 [facility] Comment on above: Performed By: #### 1 5894454, 2234759, 1334628, 82423478, 2262042 ####[facility] [address] [place] [address] Urea nitrogen/Creatinine [Mass ratio] 22 No Units High 10-20 [facility] Comment on above: Performed By: #### 1 4888470, 2692583, 4766139, 22436709, 7405659 ####[facility] [address] [place] [address] Consent for Treatmenton Consent for Treatment [id number]#[id number]:12 7 Normal [facility] HEMATOLOGYOrdered By: SYSTEM SYSTEM on 09-25-2022 Basophils/100 [...] ONC - Otheron 09-25-2022 ONC - Other [id number] 22020 [id number]#1.00CD: 127 Normal [facility] eGFRon 09-25-2022 GFR/1.73 sq M.predicted among non-blacks MDRD (S/P/Bld) [Vol rate/Area] 53 mL/min/1.73 m2 Low >=59 [facility] Comment on above: Order Comment: Order added by Discern Expert. Result Comment: Psych Therapist aubrey kidney disease could be indicated at eGFR's of less than 60 mL/min/1.73m2. Kidney failure is indicated at less than 15 mL/min/1.73m2. Performed By: #### 1 3889990, 5342674, 6356278, 11617354, 1704126 ####[facility] [address] [place] [address] Ferritinon 09-10-2022 Ferritin [Mass/Vol] 302 ng/mL Normal 11-[address] [facility] Comment on above: Result Comment: NORM ALS MEN <30 YRS 16-132 ng/mL MEN >30 YRS 8-338 ng/mL WOMEN (PREMEN) 6-104 ng/mL WOMEN (POSTMEN) 12-210 ng/mL Performed By: #### 2 970115, 0951007, 3294803, 8190834, 0522986, 5014448, 35358789, 7543982, 4353105, 6653814, 85377994 ####[facility] [address] [place] [address] Folateon 09-10-2022 Folate [Mass/Vol] 9.6 ng/mL Normal >=6.7 [facility] Comment on above: Performed By: #### 2 363576, 8298993, 7888866, 9010567, 5956490, 7604795, 55321820, 8511007, 8765145, 9585272, 13535960 ####[facility] [address] [place] [address] Vit B12on 09-10-2022 Cobalamin (Vitamin B12) [Mass/Vol] 203 pg/mL Normal 50-1500 [facility] Comment on above: Performed By: #### 2 974602, 4986949, 8728925, 6276670, 8146442, 0230525, 93709553, 0222286, 5607384, 1122894, 32872545 ####[facility] [address] [place] [address] CA 27 29on 09-09-2022 Cancer Ag 27-29 Qn 15.2 unit/mL Invalid Interpretation Code 0.0-38.6 [facility] Comment on above: Result Comment: Siem From[employer] Immunochemiluminometric Methodology (ICMA)Values obtained with different assay methods or kits cannot be usedinterchangeably. Results cannot be interpreted as absolute evidenceof the presence or absence of malignant disease.Performed at: [facility] [address] [place], [place] [id number] PhD [place] Avelar Performed By: #### 2 903825, 3027533, 1994743, 0811811, 1091346, 4765968, 29837194, 1300736, 3155931, 6358092, 82135444 ####[facility] [address] [place] [address] Auto Diffon 09-08-2022 Basophils/100 WBC (Bld) 0.4 % Normal 0.0-2.0 [facility] Comment on above: Order Comment: Order Added by Discern Expert. Performed By: #### 2 369432, 9642283, 9226751, 3286358, 7232838, 8094108, 38844571, 5409619, 1038345, 1338577, 84122438 ####[place] [place] [address] Basophils/Leukocytes Auto (Bld) [Pure # fraction] 0.0 E9/L Normal 0.0-0.2 [facility] Comment on above: Order Comment: Order Added by Discern Expert. Performed By: #### 2 649464, 0519871, 3190812, 9400532, 7688839, 3865556, 66016229, 6817697, 3332792, 0867768, 94239273 ####[facility] [address] [place] [address] Eosinophils/100 WBC (Bld) 1.4 % Normal 0.0-8.0 [facility] Comment on above: Order Comment: Order Added by Discern Expert. Performed By: #### 2 699599, 1754231, 5774927, 9919553, 7232537, 3014785, 33551705, 8277567, 4754480, 0814695, 34499021 ####[facility] [address] [place] [address] Eosinophils/Leukocytes Auto (Bld) [Pure # fraction] 0.1 E9/L Normal 0.0-0.5 [facility] Comment on above: Order Comment: Order Added by Discern Expert. Performed By: #### 2 126101, 3357589, 1307162, 1352255, 0628463, 6834048, 73410512, 4303808, 9784231, 3903712, 13610626 ####[place] [address] [place] [address] Lymphocytes/100 WBC (Bld) 15.3 % Normal 14.0-50.0 [facility] Comment on above: Order Comment: Order Added by Discern Expert. Performed By: #### 2 681777, 9908829, 8464670, 7382798, 2229507, 5492715, 43540728, 9144441, 0181453, 9895434, 39674417 ####[address] [address] Lymphocytes/Leukocytes Auto (Bld) [Pure # fraction] 0.8 E9/L Low 1.0-4.0 [facility] Comment on above: Order Comment: Order Added by Faviola Expert. Performed By: #### 2 439947, 7810424, 1898656, 0567345, 6392816, 1844378, 30529094, 6056620, 3822756, 1745608, 83318267 ####[place] [place] [address] Monocytes/100 WBC (Bld) 2.8 % Low 4.0-14.0 F [facility] [place] Comment on above: Order Comment: Order Added by Discern Expert. Performed By: #### 2 377683, 7470349, 5407642, 3854717, 0258877, 4437460, 16240850, 2437006, 3709951, 6503881, 69008643 ####[place] [address] [place] [address] Monocytes/Leukocytes Auto (Bld) [Pure # fraction] 0.1 E9/L Low 0.2-1.0 [facility] Comment on above: Order Comment: Order Added by Discern Expert. Performed By: #### 2 354289, 5810856, 4498215, 5296231, 2314716, 6640985, 48808731, 3488261, 1867678, 7326011, 45735125 ####[place] [place] [address] Neutrophils/100 WBC (Bld) 80.1 % High 36.0-75.0 [facility] Comment on above: Order Comment: Order Added by Discern Expert. Performed By: #### 2 208029, 8394266, 5832930, 6901608, 9354311, 6340412, 69500452, 4683534, 2135590, 9742895, 68003278 ####[place] [place] [address] Neutrophils/Leukocytes Auto (Bld) [Pure # fraction] 4.2 E9/L Normal 2.0-7.5 [facility] Comment on above: Order Comment: Order Added by Discern Expert. Performed By: #### 2 986464, 7377123, 3591992, 1611231, 0299571, 1959965, 73450971, 8981396, 8108051, 5694482, 93337674 ####[address] [address] CBC w/ Auto Diffon 3 Erythrocyte distribution width (RBC) [Ratio] 15.4 % High 10.9-14.2 [facility] Comment on above: Performed By: #### 2 230987, 3223865, 8538714, 0061667, 5460195, 9062525, 81841921, 0097789, 5222876, 4309645, 66513613 ####[place] [place] [address] Hematocrit (Bld) [Volume fraction] 30.9 % Low 34.0-46.0 [facility] Comment on above: Performed By: #### 2 600439, 2345828, 7674536, 9527307, 4136969, 2301193, 27544697, 6534128, 7891160, 0042579, 90985980 ####[facility] [address] [place] [address] Hemoglobin (Bld) [Mass/Vol] 10.3 g/dL Low 12.0-16.0 [facility] Comment on above: Performed By: #### 2 983374, 6963044, 5270069, 5920865, 6471207, 1186802, 34100935, 3750728, 6964670, 0461631, 29660063 ####[place] [place] [address] MCH (RBC) [Entitic mass] 33.7 pg Normal 27.0-34.0 [facility] Comment on above: Performed By: #### 2 810116, 0840522, 5341286, 7053571, 2082769, 9483171, 77435052, 1927078, 6730361, 1027343, 13282856 ####[address] [address] MCHC (RBC) [Mass/Vol] 33.1 g/dL Normal 31.4-36.0 [facility] Comment on above: Performed By: #### 2 557316, 2908913, 3883285, 3912383, 0997131, 5924710, 69748154, 2103460, 5062751, 4345182, 57098857 ####[address] [address] MCV (RBC) [Entitic vol] 101.8 fL High 80.0-100.0 [facility] [place] Comment on above: Performed By: #### 2 665713, 7009906, 0528499, 9160740, 9670289, 6282957, 55102303, 1173619, 3275472, 5709449, 50778261 ####[place] [address] [place] [address] Platelet mean volume (Bld) [Entitic vol] 7.2 fL Normal 6.4-10.8 [facility] Comment on above: Performed By: #### 2 073641, 6329596, 5051113, 1239769, 9624913, 5202684, 94296750, 6593377, 5169952, 4274078, 90367083 ####[facility] [address] [place] [address] Platelets (Bld) [#/Vol] 307.0 E9/L Normal 150. 0-500. 0 [facility] Comment on above: Performed By: #### 2 877121, 2023523, 4540914, 4529934, 7050327, 5044890, 92736927, 0633560, 1837457, 6096732, 58497258 ####[facility] [address] [place] [address] RBC (Bld) [#/Vol] 3.0 E12/L Low 4.3-5.9 [facility] Comment on above: Performed By: #### 2 507991, 1805241, 3125600, 5861588, 3580881, 0365433, 56578232, 4882612, 7252958, 5374770, 75474283 ####[place] [address] [place] [address] WBC corrected for nucl RBC Auto (Bld) [#/Vol] 5.3 E9/L Normal 4.0-11.0 [facility] Comment on above: Performed By: #### 2 018500, 8255687, 4660795, 8646815, 9759634, 5831312, 28827103, 7359170, 5982603, 0516704, 32873984 ####[place] [place] [address] CMPon 09-08-2022 Albumin [Mass/Vol] 3.1 g/dL Low 3.3-5.0 [facility] Comment on above: Performed By: #### 2 869525, 3531472, 2068170, 3519609, 0695830, 8975876, 53533674, 3492824, 7077358, 5133505, 31491151 ####[facility] [address] [place] [address] Albumin/Globulin (S) [Mass conc ratio] 0.8 Low 1.1-2.2 [facility] Comment on above: Performed By: #### 2 280720, 5492481, 1397923, 7195410, 4681865, 5067790, 18762643, 8295514, 2217155, 0316250, 33104251 ####[facility] [address] [place] [address] ALP [Catalytic activity/Vol] 156 Int._Unit/L High 21-98 [facility] Comment on above: Performed By: #### 2 809487, 3405473, 2813833, 4598520, 9367582, 7382406, 71915937, 1178183, 1092426, 6793538, 00361893 ####[facility] [address] [place] [address] ALT No additional P-5'-P [Catalytic activity/Vol] 16 Int._Unit/L Normal 6-46 [facility] Comment on above: Performed By: #### 2 382191, 7050456, 2090382, 2625044, 2129767, 9599077, 46775523, 9523589, 9286466, 3632052, 93856006 ####[facility] [address] [place] [address] Anion gap [Moles/Vol] 11 mmol/L Normal 6-16 [facility] Comment on above: Performed By: #### 2 623869, 7687006, 7645901, 3531844, 8608873, 0142369, 08913883, 6792737, 7434808, 3879150, 27855925 ####[facility] [address] [place] [address] AST [Catalytic activity/Vol] 17 Int._Unit/L Normal 5-43 [facility] Comment on above: Performed By: #### 2 804105, 7812774, 9560656, 4121748, 0666704, 5142451, 55722996, 7021640, 8971833, 9937099, 99246242 ####[facility] [address] [place] [address] Bilirubin [Mass/Vol] 0.8 mg/dL Normal 0.0-1.1 [facility] Comment on above: Performed By: #### 2 471298, 4011703, 0465748, 7956788, 0240690, 1429668, 28363642, 5354392, 2260746, 6840021, 88655710 ####[facility] [address] [place] [address] Calcium [Mass/Vol] 8.7 mg/dL Low 8.9-11.1 [facility] Comment on above: Performed By: #### 2 464845, 8553281, 9066852, 8379073, 7909968, 9512860, 63992259, 5236056, 9082852, 3951695, 37496406 ####[facility] [address] [place] [address] Chloride [Moles/Vol] 109 mmol/L Normal 101-111 [facility] Comment on above: Performed By: #### 2 609705, 1118684, 6534647, 3142719, 6002940, 2716177, 33584029, 3972935, 3440677, 0535646, 48012424 ####[facility] [address] [place] [address] CO2 [Moles/Vol] 23 mmol/L Normal 21-31 [facility] Comment on above: Performed By: #### 2 183131, 3649759, 3835415, 5542422, 1729891, 4468059, 60294264, 6098353, 8309788, 4886826, 69855238 ####[facility] [address] [place] [address] Creatinine [Mass/Vol] 1.3 mg/dL Normal 0.5-1.3 [facility] Comment on above: Performed By: #### 2 003299, 4507271, 1016897, 2337882, 9547579, 6748316, 26943582, 1758826, 9453018, 2560320, 51644489 ####[facility] [address] [place] [address] Globulin (S) [Mass/Vol] 4.0 g/dL Normal 1.4-4.0 F [facility] [place] Comment on above: Performed By: #### 2 050268, 8985485, 2395045, 5159173, 3454542, 8579389, 81457759, 1579840, 8477608, 9326484, 14758861 ####[facility] [address] [place] [address] Glucose [Mass/Vol] 133 mg/dL Normal 55-199 [facility] Comment on above: Result Comment: If t his glucose result represents a fasting glucose, interpretation should refer to the following reference range: 55-99 mg/dL Performed By: #### 2 031263, 6295241, 7529598, 5584309, 1544856, 5832607, 99061597, 1056797, 2247114, 1473041, 36211669 ####[facility] [address] [place] [address] Potassium [Moles/Vol] 4.2 mmol/L Normal 3.5-5.3 [facility] Comment on above: Performed By: #### 2 436767, 2241682, 9686577, 7861075, 1107463, 7285093, 98141713, 8108455, 6981050, 6363081, 43245775 ####[facility] [address] [place] [address] Protein [Mass/Vol] 7.1 g/dL Normal 6.0-7.8 [facility] Comment on above: Performed By: #### 2 179000, 5019415, 2447955, 0389444, 0504923, 7586975, 25664828, 3143403, 0991256, 8363503, 78093387 ####[facility] [address] [place] [address] Sodium [Moles/Vol] 139 mmol/L Normal 135-145 [facility] Comment on above: Performed By: #### 2 919241, 9866482, 0581737, 3259784, 9648771, 6409556, 14979461, 3387271, 4893034, 0161142, 06057782 ####[facility] [address] [place] [address] Urea nitrogen [Mass/Vol] 28 mg/dL High 5- [facility] Comment on above: Performed By: #### 2 688836, 7117421, 3889998, 1008671, 2368624, 5187361, 35431496, 4875604, 1747161, 2121502, 11887800 ####[facility] [address] [place] [address] Urea nitrogen/Creatinine [Mass ratio] 22 No Units High - [facility] Comment on above: Performed By: #### 2 532875, 0856651, 7458939, 7885999, 0016987, 6155997, 40835012, 5099401, 1359484, 0999939, 10499555 ####[facility] [address] [place] [address] Consent for Treatmenton 08-21 Consent for Treatment [id number]#1.00CD:12 7 Normal [facility] Consent for Treatment [id number]:12 7 [facility] Discharge Instructionson Discharge Instructions [id number]#1.00CD:1 27 Normal [facility] ED Clinical Summaryon 2022 ED Clinical Summary Normal [facility] ED Note-Physicianon 09-09-19 ED Note-Physician Normal [facility] Comment on above: Result Comment: Elec tronically Signed By: Nic SIMPSON, Mendez Bain\.br\Date and Time Signed: 09/08/22 16:09 EDT\.br\Electronically Co-Signed By: Pedro Nava DO.johnnie\Date and Time Co-Signed: 09/08/22 16:54 EDT ED Patient Education Noteon 09-08-2022 ED Patient Education Note Normal [facility] ED Patient Summaryon 023 ED Patient Summary Normal [facility] Ironon 09-08-2022 Iron [Mass/Vol] 48 microgram/dL Normal 35-[address] [facility] Comment on above: Performed By: #### 2 572875, 0500210, 7188850, 7055742, 6638406, 0695575, 97448979, 2693289, 2683136, 0540680, 76685364 ####[facility] [address] [place] [address] Iron Saturationon 09-08-2022 Iron binding capacity [Mass/Vol] 239 microgram/dL Low 250-400 [facility] Comment on above: Performed By: #### 2 943306, 7252432, 6405054, 7891226, 3897636, 3645057, 05967768, 1312662, 5575768, 5667933, 89043292 ####[facility] [address] [place] [address] Iron saturation [Mass fraction] 20 % Normal 20-50 [facility] Comment on above: Performed By: #### 2 989010, 4533138, 6778593, 4190133, 7405499, 0150664, 16380091, 6931116, 7571143, 7247517, 81398685 ####[facility] [address] [place] [address] Transferrinon 09-08-2022 Transferrin [Mass/Vol] 170 mg/dL Low 200-370 [facility] Comment on above: Performed By: #### 2 578422, 0569812, 7263444, 4364408, 1488797, 9788674, 49506175, 8892914, 3489223, 0751200, 33287307 ####[facility] [address] [place] [address] eGFRon 09-08-2022 GFR/1.73 sq M.predicted among non-blacks MDRD (S/P/Bld) [Vol rate/Area] 43 mL/min/1.73 m2 Low >=59 [facility] Comment on above: Order Comment: Order added by Discern Expert. Result Comment: Psych Therapist aubrey kidney disease could be indicated at eGFR's of less than 60 mL/min/1.73m2. Kidney failure is indicated at less than 15 mL/min/1.73m2. Performed By: #### 2 142171, 5511207, 6846439, 8754205, 5180778, 7145908, 41961448, 2593520, 7821823, 2311778, 54963102 ####[facility] [address] [place] [address] Coding Summary.on 08-04-2022 Coding Summary. Normal [facility] Coding Summary.on 08-02-2022 Coding Summary. Normal [facility] CA 27 29on 08-01-2022 Cancer Ag 27-29 Qn 13.4 unit/mL Invalid Interpretation Code 0.0-38.6 [facility] Comment on above: Result Comment: [employer] Immunochemiluminometric Methodology (ICMA)Values obtained with different assay methods or kits cannot be usedinterchangeably. Results cannot be interpreted as absolute evidenceof the presence or absence of malignant disease.Performed at: [facility] [id number] [place], [place] [id number] PhD [place] Avelar Performed By: #### 2 [id number] ####[facility] [address] [place] [address] Consent for Treatmenton 07-21 Consent for Treatment [id number]:12 [id number] Normal [facility] Oncology Noteon 08-01-2022 Oncology Note Normal [facility] Comment on above: Result Comment: Elec tronically Signed By: Jane FARMER, Yolande Grande.br\Date and Time Signed: 08/01/22 15:08 EDT Oncology Progress Noteon Oncology Progress Note Normal Fi [facility] [facility] Auto Diffon 07-30-2022 Basophils/100 WBC (Bld) 2.7 % High 0.0-2.0 F [facility] [place] Comment on above: Order Comment: Order Added by Discern Expert. Performed By: #### 2 123970, 0245606, 5663224, 40559631, 36582956 ####[facility] [address] [place] [address] Basophils/Leukocytes Auto (Bld) [Pure # fraction] 0.1 E9/L Normal 0.0-0.2 [facility] Comment on above: Order Comment: Order Added by Discern Expert. Performed By: #### 2 416367, 3486642, 4106624, 04671941, 36871057 ####[facility] [address] [place] [address] Eosinophils/100 WBC (Bld) 3.5 % Normal 0.0-8.0 [facility] Comment on above: Order Comment: Order Added by Discern Expert. Performed By: #### 2 390856, 4657140, 8522352, 84552648, 77039049 ####[facility] [address] [place] [address] Eosinophils/Leukocytes Auto (Bld) [Pure # fraction] 0.1 E9/L Normal 0.0-0.5 [facility] Comment on above: Order Comment: Order Added by Discern Expert. Performed By: #### 2 534182, 6362921, 8038500, 73662532, 03905305 ####[facility] [address] [place] [address] Lymphocytes/100 WBC (Bld) 22.7 % Normal 14.0-50.0 [facility] Comment on above: Order Comment: Order Added by Discern Expert. Performed By: #### 2 980109, 4960814, 8257957, 21233500, 09332739 ####[facility] [address] [place] [address] Lymphocytes/Leukocytes Auto (Bld) [Pure # fraction] 0.8 E9/L Low 1.0-4.0 [facility] Comment on above: Order Comment: Order Added by Discern Expert. Performed By: #### 2 058244, 4174669, 0026863, 00283803, 07340592 ####[facility] [address] [place] [address] Monocytes/100 WBC (Bld) 3.2 % Low 4.0-14.0 [facility] [place] Comment on above: Order Comment: Order Added by Discern Expert. Performed By: #### 2 852775, 1990697, 3436825, 80655995, 66233032 ####[place] [place] [address] Monocytes/Leukocytes Auto (Bld) [Pure # fraction] 0.1 E9/L Low 0.2-1.0 [facility] Comment on above: Order Comment: Order Added by Discern Expert. Performed By: #### 2 939197, 4758036, 6957871, 16493402, 30968797 ####[address] [address] Neutrophils/100 WBC (Bld) 67.9 % Normal 36.0-75.0 [facility] Comment on above: Order Comment: Order Added by Discern Expert. Performed By: #### 2 959211, 4415405, 8803742, 39433606, 89690626 ####[address] [address] Neutrophils/Leukocytes Auto (Bld) [Pure # fraction] 2.5 E9/L Normal 2.0-7.5 [facility] Comment on above: Order Comment: Order Added by Discern Expert. Performed By: #### 2 579084, 5304005, 1450374, 19721342, 22529250 ####[address] [address] CBC w/ Auto Diffon 3 Erythrocyte distribution width (RBC) [Ratio] 15.9 % High 10.9-14.2 [facility] Comment on above: Performed By: #### 2 894505, 0905833, 4175396, 15247699, 75648217 ####[place] [address] Hematocrit (Bld) [Volume fraction] 32.4 % Low 34.0-46.0 [facility] Comment on above: Performed By: #### 2 198033, 8001590, 9531564, 74384111, 01223297 ####[place] [address] Hemoglobin (Bld) [Mass/Vol] 10.5 g/dL Low 12.0-16.0 [facility] Comment on above: Performed By: #### 2 293893, 1984552, 3094872, 06198521, 58299558 ####[place] [address] MCH (RBC) [Entitic mass] 33.6 pg Normal 27.0-34.0 [facility] Comment on above: Performed By: #### 2 722189, 6395738, 2300442, 52990440, 02817879 ####[place] [address] MCHC (RBC) [Mass/Vol] 32.5 g/dL Normal 31.4-36.0 [facility] Comment on above: Performed By: #### 2 487343, 0562273, 6856633, 22316348, 80260400 ####[place] [address] MCV (RBC) [Entitic vol] 103.2 fL High 80.0-100.0 F [facility] [place] Comment on above: Performed By: #### 2 328159, 3560717, 4770313, 53209793, 97466667 ####[address] [address] Platelet mean volume (Bld) [Entitic vol] 7.4 fL Normal 6.4-10.8 [facility] Comment on above: Performed By: #### 2 841105, 4844144, 6924131, 22183773, 22200160 ####[facility] [address] [place] [address] Platelets (Bld) [#/Vol] 142.0 E9/L Low 150. 0-500. 0 [facility] Comment on above: Performed By: #### 2 627828, 5337779, 2708142, 17838730, 45567433 ####[facility] [address] [place] [address] RBC (Bld) [#/Vol] 3.1 E12/L Low 4.3-5.9 [facility] Comment on above: Performed By: #### 2 902172, 9569549, 5371946, 27808929, 70201016 ####[facility] [address] [place] [address] WBC corrected for nucl RBC Auto (Bld) [#/Vol] 3.7 E9/L Low 4.0-11.0 [facility] Comment on above: Performed By: #### 2 073139, 9682947, 5756613, 73068257, 60473023 ####[facility] [address] [place] [address] CHEMISTRYOrdered By: SYSTEM SYSTEM on 07-30-2022 Albumin [...] - 4.0 gm/dL FT Remisol Glucose [Mass/Vol] 147 mg/dL Normal 55 - 199 mg/dL [facility] Remisol Potassium [Moles/Vol] 4.0 mmol/L Normal 3.5 - 5.3 mmol/L [facility] Remisol Protein [Mass/Vol] 6.5 g/dL Normal 6.0 - 7.8 gm/dL [facility] Remisol Sodium [Moles/Vol] 136 mmol/L Normal 135 - 145 mmol/L [facility] Remisol Urea nitrogen [Mass/Vol] 33 mg/dL High 5 - 21 mg/dL [facility] Remisol Urea nitrogen/Creatinine [Mass ratio] 25 mg/mg High 10 - 20 [facility] Remisol CMPon 07-30-2022 Albumin [Mass/Vol] 3.3 g/dL Normal 3.3-5.0 [facility] Comment on above: Performed By: #### 2 244764, 1250666, 7810068, 80173726, 96931751 ####[facility] [address] [place] [address] Albumin/Globulin (S) [Mass conc ratio] 1.0 Low 1.1-2.2 [facility] Comment on above: Performed By: #### 2 000022, 9504290, 2192916, 08111187, 34180301 ####[facility] [address] [place] [address] ALP [Catalytic activity/Vol] 121 Int._Unit/L High 21-98 [facility] Comment on above: Performed By: #### 2 281939, 7532646, 7743436, 96005205, 08937444 ####[facility] [address] [place] [address] ALT No additional P-5'-P [Catalytic activity/Vol] 15 Int._Unit/L Normal 6-46 [facility] Comment on above: Performed By: #### 2 588469, 1072051, 0220251, 08281575, 48995960 ####[facility] [address] [place] [address] Anion gap [Moles/Vol] 11 mmol/L Normal 6-16 [facility] Comment on above: Performed By: #### 2 209193, 9466154, 0243406, 33571582, 22820508 ####[facility] [address] [place] [address] AST [Catalytic activity/Vol] 15 Int._Unit/L Normal 5-43 [facility] Comment on above: Performed By: #### 2 598772, 4516585, 7807371, 32883245, 91511331 ####[facility] [address] [place] [address] Bilirubin [Mass/Vol] 0.9 mg/dL Normal 0.0-1.1 [facility] Comment on above: Performed By: #### 2 566905, 2643100, 1182559, 09975221, 87522299 ####[facility] [address] [place] [address] Calcium [Mass/Vol] 8.5 mg/dL Low 8.9-11.1 [facility] Comment on above: Performed By: #### 2 495967, 6413430, 7985988, 82192346, 34737136 ####[facility] [address] [place] [address] Chloride [Moles/Vol] 107 mmol/L Normal 101-111 [facility] Comment on above: Performed By: #### 2 724322, 7981244, 3840590, 00125880, 10579410 ####[facility] [address] [place] [address] CO2 [Moles/Vol] 22 mmol/L Normal 21-31 [facility] Comment on above: Performed By: #### 2 493330, 6425009, 5782746, 08458565, 62949579 ####[facility] [address] [place] [address] Creatinine [Mass/Vol] 1.3 mg/dL Normal 0.5-1.3 [facility] Comment on above: Performed By: #### 2 889006, 7940491, 0706461, 40583764, 52083171 ####[facility] [address] [place] [address] Globulin (S) [Mass/Vol] 3.2 g/dL Normal 1.4-4.0 [facility] Comment on above: Performed By: #### 2 185480, 4884605, 8877326, 28428601, 94779824 ####[facility] [address] [place] [address] Glucose [Mass/Vol] 147 mg/dL Normal 55-199 [facility] Comment on above: Result Comment: If t his glucose result represents a fasting glucose, interpretation should refer to the following reference range: 55-99 mg/dL Performed By: #### 2 481503, 5192699, 6911338, 82969902, 91537707 ####[facility] [address] [place] [address] Potassium [Moles/Vol] 4.0 mmol/L Normal 3.5-5.3 [facility] Comment on above: Performed By: #### 2 409013, 7458488, 4960653, 86673646, 27078121 ####[facility] [address] [place] [address] Protein [Mass/Vol] 6.5 g/dL Normal 6.0-7.8 [facility] Comment on above: Performed By: #### 2 978170, 2091056, 5598389, 81455781, 32036769 ####[facility] [address] [place] [address] Sodium [Moles/Vol] 136 mmol/L Normal 135-145 [facility] Comment on above: Performed By: #### 2 899221, 6898014, 3916497, 36575111, 62908767 ####[facility] [address] [place] [address] Urea nitrogen [Mass/Vol] 33 mg/dL High 5-21 [facility] Comment on above: Performed By: #### 2 891270, 9180390, 0025771, 79014314, 12392225 ####[facility] [address] [place] [address] Urea nitrogen/Creatinine [Mass ratio] 25 No Units High 10-20 [facility] Comment on above: Performed By: #### 2 296194, 6504946, 3210949, 38108553, 95813679 ####[facility] [address] [place] [address] Consent for Treatmenton 07-21 Consent for Treatment [id number]#1.00CD:12 7 Normal [facility] HEMATOLOGYOrdered By: SYSTEM SYSTEM on 07-30-2022 Basophils/100 [...] 3.7 E9/L Low 4.0 - 11.0 E9/L [facility] HemeAutoSS eGFRon 07-30-2022 GFR/1.73 sq M.predicted among blacks MDRD (S/P/Bld) [Vol rate/Area] 49 mL/min/1.73 m2 Low >=59 [facility] Comment on above: Order Comment: Order added by Discern Expert. Result Comment: eGFR is race adjusted. AA=. Performed By: #### 2 970755, 4400010, 3990688, 03707333, 09508321 ####[facility] [address] [place] [address] GFR/1.73 sq M.predicted among non-blacks MDRD (S/P/Bld) [Vol rate/Area] 40 mL/min/1.73 m2 Low >=59 [facility] Comment on above: Order Comment: Order added by Discern Expert. Result Comment: Psych Therapist aubrey kidney disease could be indicated at eGFR's of less than 60 mL/min/1.73m2. Kidney failure is indicated at less than 15 mL/min/1.73m2. Performed By: #### 2 028985, 8656032, 6784474, 78976641, 98923814 ####[facility] [address] [place] [address] Coding Summary.on 07-27-2022 Coding Summary. Normal [facility] NM PET w/ CT Scan Skull Base to Midthighon 07-26-2022 NM PET w/ CT Scan Skull Base to Midthigh Normal [facility] RAD - MISCon 07-26-2022 RAD - MISC [id number]#1.00CD:1 27 Normal [facility] Consent for Treatmenton Consent for Treatment [id number]#1.00CD:12 7 Normal [facility] Physician Orderon 07-25-2022 Physician Order [id number]#1.00CD:12 7 Normal [facility] Coding Summary.on 07-13-2022 Coding Summary. Normal [facility] CA 27 29on 07-10-2022 Cancer Ag 27- Qn 14.4 unit/mL Invalid Interpretation Code 0.0-38.6 [facility] Comment on above: Result Comment: [facility] [employer] Immunochemiluminometric Methodology (ICMA)Values obtained with different assay methods or kits cannot be usedinterchangeably. Results cannot be interpreted as absolute evidenceof the presence or absence of malignant disease.Performed at: [facility] [place], [place] [id number] PhD [place] Avelar Performed By: #### 2 709086, 61341271, 0751928, 78412051, 5545061 ####[facility] [address] [place] [address] Auto Diffon 07-09-2022 Basophils/100 WBC (Bld) 2.7 % High 0.0-2.0 [facility] Comment on above: Order Comment: Order Added by Discern Expert. Performed By: #### 2 248416, 55585654, 4371393, 46007787, 5868992 ####[facility] [address] [place] [address] Basophils/Leukocytes Auto (Bld) [Pure # fraction] 0.1 E9/L Normal 0.0-0.2 [facility] Comment on above: Order Comment: Order Added by Discern Expert. Performed By: #### 2 703541, 70473353, 9524742, 42895706, 1375241 ####[facility] [address] [place] [address] Eosinophils/100 WBC (Bld) 1.9 % Normal 0.0-8.0 [facility] Comment on above: Order Comment: Order Added by Discern Expert. Performed By: #### 2 495336, 04424169, 4606020, 64386909, 4695202 ####[facility] [address] [place] [address] Eosinophils/Leukocytes Auto (Bld) [Pure # fraction] 0.1 E9/L Normal 0.0-0.5 [facility] Comment on above: Order Comment: Order Added by Discern Expert. Performed By: #### 2 584512, 09478705, 7139545, 04836735, 0506218 ####[facility] [address] [place] [address] Lymphocytes/100 WBC (Bld) 31.4 % Normal 14.0-50.0 [facility] Comment on above: Order Comment: Order Added by Discern Expert. Performed By: #### 2 732278, 83841542, 3942831, 35951011, 0930333 ####[address] [address] Lymphocytes/Leukocytes Auto (Bld) [Pure # fraction] 1.3 E9/L Normal 1.0-4.0 [facility] Comment on above: Order Comment: Order Added by Faviola Expert. Performed By: #### 2 681796, 68220563, 4328889, 07426274, 6756671 ####[address] [address] Monocytes/100 WBC (Bld) 5.5 % Normal 4.0-14.0 [facility] Comment on above: Order Comment: Order Added by Faviola Expert. Performed By: #### 2 225001, 56686576, 0915709, 53000600, 8125212 ####[address] [address] Monocytes/Leukocytes Auto (Bld) [Pure # fraction] 0.2 E9/L Normal 0.2-1.0 [facility] Comment on above: Order Comment: Order Added by Faviola Expert. Performed By: #### 2 334785, 63543009, 4391374, 92922777, 0499330 ####[address] [address] Neutrophils/100 WBC (Bld) 58.5 % Normal 36.0-75.0 [facility] Comment on above: Order Comment: Order Added by Discern Expert. Performed By: #### 2 351266, 60071145, 8877978, 10954405, 9774270 ####[address] [place] [address] Neutrophils/Leukocytes Auto (Bld) [Pure # fraction] 2.5 E9/L Normal 2.0-7.5 [facility] Comment on above: Order Comment: Order Added by Discern Expert. Performed By: #### 2 992398, 30702289, 6668663, 66387407, 3949304 ####[address] [address] [place] [address] CBC w/ Auto Diffon 3 Erythrocyte distribution width (RBC) [Ratio] 17.1 % High 10.9-14.2 [facility] Comment on above: Performed By: #### 2 828667, 22817683, 3768266, 12142625, 3253790 ####[address] [address] Hematocrit (Bld) [Volume fraction] 36.3 % Normal 34.0-46.0 [facility] Comment on above: Performed By: #### 2 093132, 01726081, 1895681, 88375354, 1425658 ####[address] [address] Hemoglobin (Bld) [Mass/Vol] 11.9 g/dL Low 12.0-16.0 [facility] Comment on above: Performed By: #### 2 407063, 51854186, 9375662, 17859454, 6215921 ####[address] [place] [address] MCH (RBC) [Entitic mass] 33.4 pg Normal 27.0-34.0 [facility] Comment on above: Performed By: #### 2 178912, 10273758, 2478558, 09104674, 3837544 ####[address] [address] MCHC (RBC) [Mass/Vol] 32.9 g/dL Normal 31.4-36.0 [facility] Comment on above: Performed By: #### 2 128843, 09696868, 0497356, 18680650, 3224426 ####[facility] [address] [place] [address] MCV (RBC) [Entitic vol] 101.5 fL High 80.0-100.0 F [facility] [place] Comment on above: Performed By: #### 2 650392, 05234016, 3763248, 63419987, 2960713 ####[facility] [address] [place] [address] Platelet mean volume (Bld) [Entitic vol] 7.3 fL Normal 6.4-10.8 [facility] Comment on above: Performed By: #### 2 929791, 20287054, 0560164, 88096974, 8151689 ####[facility] [address] [place], [place] [address] Platelets (Bld) [#/Vol] 205.0 E9/L Normal 150. 0-500. 0 [facility] Comment on above: Performed By: #### 2 256238, 05427294, 2229549, 48110220, 9784476 ####[facility] [address] [place], [place] [address] RBC (Bld) [#/Vol] 3.6 E12/L Low 4.3-5.9 [facility] Comment on above: Performed By: #### 2 700869, 67038574, 0677684, 09826529, 4540156 ####[facility] [address] [place] [address] WBC corrected for nucl RBC Auto (Bld) [#/Vol] 4.2 E9/L Normal 4.0-11.0 [facility] Comment on above: Performed By: #### 2 357463, 63476842, 8233832, 00573718, 0486692 ####[facility] [address] [place] [address] CHEMISTRYOrdered By: SYSTEM SYSTEM on 07-09-2022 Albumin [...] 7.0 g/dL Normal 6.0 - 7.8 gm/dL [facility] Remisol Sodium [Moles/Vol] 138 mmol/L Normal 135 - 145 mmol/L [facility] Remisol Urea nitrogen [Mass/Vol] 24 mg/dL High 5 - 21 mg/dL [facility] Remisol Urea nitrogen/Creatinine [Mass ratio] 18 mg/mg Normal 10 - [facility] Remisol CMPon 07-09-2022 Albumin [Mass/Vol] 3.6 g/dL Normal 3.3-5.0 [facility] Comment on above: Performed By: #### 2 381830, 78719599, 0873682, 81808258, 1172767 ####[facility] [address] [place] [address] Albumin/Globulin (S) [Mass conc ratio] 1.1 Normal 1.1-2.2 [facility] Comment on above: Performed By: #### 2 763620, 25194435, 5520257, 54532317, 4374797 ####[facility] [address] [place] [address] ALP [Catalytic activity/Vol] 87 Int._Unit/L Normal 21-98 [facility] Comment on above: Performed By: #### 2 128171, 76634812, 9432086, 78654761, 5916480 ####[facility] [address] [place] [address] ALT No additional P-5'-P [Catalytic activity/Vol] 18 Int._Unit/L Normal 6-46 [facility] Comment on above: Performed By: #### 2 846166, 97986879, 5440675, 92514720, 5509827 ####[facility] [address] [place] [address] Anion gap [Moles/Vol] 11 mmol/L Normal 6-16 [facility] Comment on above: Performed By: #### 2 079732, 89197406, 3118959, 15838555, 6568986 ####[facility] [address] [place] [address] AST [Catalytic activity/Vol] 18 Int._Unit/L Normal 5-43 [facility] Comment on above: Performed By: #### 2 401322, 87136166, 3853420, 08021655, 5374662 ####[facility] [address] [place] [address] Bilirubin [Mass/Vol] 1.0 mg/dL Normal 0.0-1.1 [facility] Comment on above: Performed By: #### 2 787053, 45338470, 4636299, 03680745, 0306073 ####[facility] [address] [place] [address] Calcium [Mass/Vol] 8.7 mg/dL Low 8.9-11.1 [facility] Comment on above: Performed By: #### 2 118005, 50512356, 1206018, 59546935, 8625766 ####[facility] [address] [place] [address] Chloride [Moles/Vol] 108 mmol/L Normal 101-111 [facility] Comment on above: Performed By: #### 2 316376, 79128216, 0847730, 38804861, 1718605 ####[facility] [address] [place] [address] CO2 [Moles/Vol] 23 mmol/L Normal 21-31 [facility] Comment on above: Performed By: #### 2 497323, 38156240, 4804802, 90759952, 2958528 ####[facility] [address] [place] [address] Creatinine [Mass/Vol] 1.3 mg/dL Normal 0.5-1.3 [facility] Comment on above: Performed By: #### 2 824745, 10061197, 1618898, 83405897, 1070583 ####[facility] [address] [place] [address] Globulin (S) [Mass/Vol] 3.4 g/dL Normal 1.4-4.0 [facility] Comment on above: Performed By: #### 2 796722, 77495832, 5920334, 50941324, 6281734 ####[facility] [address] [place] [address] Glucose [Mass/Vol] 119 mg/dL Normal 55-199 [facility] Comment on above: Result Comment: If t his glucose result represents a fasting glucose, interpretation should refer to the following reference range: 55-99 mg/dL Performed By: #### 2 614772, 66971186, 8084431, 57482599, 6352357 ####[facility] [address] [place] [address] Potassium [Moles/Vol] 4.1 mmol/L Normal 3.5-5.3 [facility] Comment on above: Performed By: #### 2 451832, 46021838, 1767947, 26548176, 4965773 ####[facility] [address] [place] [address] Protein [Mass/Vol] 7.0 g/dL Normal 6.0-7.8 [facility] Comment on above: Performed By: #### 2 389505, 37316362, 7243247, 36467235, 1991821 ####[facility] [address] [place] [address] Sodium [Moles/Vol] 138 mmol/L Normal 135-145 [facility] Comment on above: Performed By: #### 2 469798, 98529651, 8662818, 38131015, 9183167 ####[facility] [address] [place] [address] Urea nitrogen [Mass/Vol] 24 mg/dL High 5-21 [facility] Comment on above: Performed By: #### 2 353196, 00448054, 9612319, 21947539, 2926837 ####[facility] [address] [place] [address] Urea nitrogen/Creatinine [Mass ratio] 18 No Units Normal 10-20 [facility] Comment on above: Performed By: #### 2 852702, 57946795, 7893312, 55985599, 4775204 ####[facility] [address] [place] [address] Consent for Treatmenton 06-21 Consent for Treatment [id number]#1.00CD:[address] [facility] HEMATOLOGYOrdered By: SYSTEM SYSTEM on 07-09-2022 Basophils/100 [...] 4.2 E9/L Normal 4.0 - 11.0 E9/L [facility] HemeAutoSS eGFRon 07-09-2022 GFR/1.73 sq M.predicted among blacks MDRD (S/P/Bld) [Vol rate/Area] 49 mL/min/1.73 m2 Low >=59 [facility] Comment on above: Order Comment: Order added by Discern Expert. Result Comment: eGFR is race adjusted. AA=. Performed By: #### 2 160955, 00927006, 1162317, 44497804, 3402296 ####[facility] [address] [place] [address] GFR/1.73 sq M.predicted among non-blacks MDRD (S/P/Bld) [Vol rate/Area] 40 mL/min/1.73 m2 Low >=59 [facility] Comment on above: Order Comment: Order added by Discern Expert. Result Comment: Psych Therapist aubrey kidney disease could be indicated at eGFR's of less than 60 mL/min/1.73m2. Kidney failure is indicated at less than 15 mL/min/1.73m2. Performed By: #### 2 068385, 62601038, 6537152, 67278481, 3496551 ####[facility] [address] [place] [address] ONC - Otheron 06-28-2022 ONC - Other [id number]#1.00CD:1 27 Normal [facility] Physician Orderon 06-12-2022 Physician Order [id number]#1.00CD:1 27 Normal [facility] Coding Summary.on 06-07-2022 Coding Summary. Normal [facility] CA 27 29on 06-06-2022 Cancer Ag 27-29 Qn 17.2 unit/mL Invalid Interpretation Code 0.0-38.6 [facility] Comment on above: Result Comment: [employer] Immunochemiluminometric Methodology (ICMA)Values obtained with different assay methods or kits cannot be usedinterchangeably. Results cannot be interpreted as absolute evidenceof the presence or absence of malignant disease.Performed at: Lab[address] [id number] PhD [place] Avelar Performed By: #### 2 695329, 19479959, 3541540, 44943217, 5603582 ####[facility] [address] [place] [address] Consent for Treatmenton 05-23 Consent for Treatment [id number]#1.00CD:12 7 Normal [facility] Oncology Noteon 06-06-2022 Oncology Note Normal [facility] Comment on above: Result Comment: Elec tronically Signed By: Jane FARMER, Yolande Houston\.br\Date and Time Signed: 06/06/22 14:03 EST Oncology Progress Noteon Oncology Progress Note Normal [facility] Auto Diffon 06-05-2022 Basophils/100 WBC (Bld) 2.5 % High 0.0-2.0 F [facility] [place] Comment on above: Order Comment: Order Added by Discern Expert. Performed By: #### 2 988308, 97056547, 8711302, [id number], [id number] ####[facility] [address] [place] [address] Basophils/Leukocytes Auto (Bld) [Pure # fraction] 0.1 E9/L Normal 0.0-0.2 [facility] Comment on above: Order Comment: Order Added by Discern Expert. Performed By: #### 2 247312, 93313957, 1068490, 15980563, 3564680 ####[address] [place] [address] Eosinophils/100 WBC (Bld) 1.7 % Normal 0.0-8.0 [facility] Comment on above: Order Comment: Order Added by Discern Expert. Performed By: #### 2 879892, 91573079, 4714932, 10745946, 1481348 ####[address] [place] [address] Eosinophils/Leukocytes Auto (Bld) [Pure # fraction] 0.1 E9/L Normal 0.0-0.5 [facility] Comment on above: Order Comment: Order Added by Discern Expert. Performed By: #### 2 623977, 61214698, 4731771, 93280797, 7852831 ####[address] [address] Lymphocytes/100 WBC (Bld) 49.6 % Normal 14.0-50.0 [facility] Comment on above: Order Comment: Order Added by Discern Expert. Performed By: #### 2 774287, 24248309, 3372517, 98507793, 4967015 ####[address] [place] [address] Lymphocytes/Leukocytes Auto (Bld) [Pure # fraction] 2.3 E9/L Normal 1.0-4.0 [facility] Comment on above: Order Comment: Order Added by Discern Expert. Performed By: #### 2 996797, 34841355, 0609222, 11538923, 4843101 ####[address] [place] [address] Monocytes/100 WBC (Bld) 8.1 % Normal 4.0-14.0 [facility] Comment on above: Order Comment: Order Added by Discern Expert. Performed By: #### 2 594761, 04739772, 9094836, 47672231, 7555562 ####[address] [place] [address] Monocytes/Leukocytes Auto (Bld) [Pure # fraction] 0.4 E9/L Normal 0.2-1.0 [facility] Comment on above: Order Comment: Order Added by Discern Expert. Performed By: #### 2 773824, 80645703, 0976194, 47893851, 1431825 ####[address] [address] Neutrophils/100 WBC (Bld) 38.1 % Normal 36.0-75.0 [facility] Comment on above: Order Comment: Order Added by Discern Expert. Performed By: #### 2 556192, 62944261, 8878210, 80712477, 0131455 ####[address] [address] Neutrophils/Leukocytes Auto (Bld) [Pure # fraction] 1.8 E9/L Low 2.0-7.5 [facility] Comment on above: Order Comment: Order Added by Discern Expert. Performed By: #### 2 403128, 01948565, 4347316, 71808647, 2532834 ####[address] [address] CBC w/ Auto Diffon 3 Erythrocyte distribution width (RBC) [Ratio] 17.2 % High 10.9-14.2 [facility] Comment on above: Performed By: #### 2 857147, 64515833, 1862167, 70664178, 2152482 ####[address] [place] [address] Hematocrit (Bld) [Volume fraction] 37.6 % Normal 34.0-46.0 [facility] Comment on above: Performed By: #### 2 840171, 38115363, 7042920, 29807347, 8000352 ####[address] [place] [id number] Hemoglobin (Bld) [Mass/Vol] 12.7 g/dL Normal 12.0-16.0 [facility] Comment on above: Performed By: #### 2 315212, 99948100, 9037388, 27160428, 7816965 ####[address] MCH (RBC) [Entitic mass] 33.2 pg Normal 27.0-34.0 [facility] Comment on above: Performed By: #### 2 504327, 15817449, 8332282, 31612155, 3020103 ####[address] [address] MCHC (RBC) [Mass/Vol] 33.8 g/dL Normal 31.4-36.0 [facility] Comment on above: Performed By: #### 2 041713, 71477509, 2517631, 23076438, 0992979 ####[address] [address] MCV (RBC) [Entitic vol] 98.2 fL Normal 80.0-100.0 [facility] [place] Comment on above: Performed By: #### 2 613238, 37597241, 9356254, 30425197, 3881730 ####[address] [address] Platelet mean volume (Bld) [Entitic vol] 7.8 fL Normal 6.4-10.8 [facility] Comment on above: Performed By: #### 2 992688, 08824392, 2201307, 45875524, 7828366 ####[address] [address] Platelets (Bld) [#/Vol] 116.0 E9/L Low 150. 0-500. 0 [facility] Comment on above: Performed By: #### 2 816491, 13954380, 8126043, 61740407, 2837206 ####[facility] [address] [place] [address] RBC (Bld) [#/Vol] 3.8 E12/L Low 4.3-5.9 [facility] Comment on above: Performed By: #### 2 037090, 54253037, 0369499, 30258137, 4100406 ####[facility] [address] [place] [address] WBC corrected for nucl RBC Auto (Bld) [#/Vol] 4.6 E9/L Normal 4.0-11.0 [facility] Comment on above: Performed By: #### 2 946854, 15158947, 6546078, 69470329, 8900088 ####[facility] [address] [place] [address] CHEMISTRYOrdered By: SYSTEM SYSTEM on 06-05-2022 Albumin [...] 1.2 mg/dL Normal 0.5 - 1.3 mg/dL FT Remisol GFR/1.73 sq M.predicted among blacks MDRD (S/P/Bld) [Vol rate/Area] 54 mL/min/1.73 m2 Low >=59mL/min /1.73 m2 FT Chem S GFR/1.73 sq M.predicted among non-blacks MDRD (S/P/Bld) [Vol rate/Area] 44 mL/min/1.73 m2 Low >=59mL/min /1.73 m2 [facility] Chem S Globulin (S) [Mass/Vol] 3.1 g/dL Normal 1.4 - 4.0 gm/dL FT Remisol Glucose [Mass/Vol] 121 mg/dL Normal 55 - 199 mg/dL FT Remisol Potassium [Moles/Vol] 4.0 mmol/L Normal 3.5 - 5.3 mmol/L FT Remisol Protein [Mass/Vol] 6.7 g/dL Normal 6.0 - 7.8 gm/dL FT Remisol Sodium [Moles/Vol] 138 mmol/L Normal 135 - 145 mmol/L FT Remisol Urea nitrogen [Mass/Vol] 26 mg/dL High 5 - 21 mg/dL FT Remisol Urea nitrogen/Creatinine [Mass ratio] 22 mg/mg High 10 - 20 FT Remisol CMPon 06-05-2022 Albumin [Mass/Vol] 3.6 g/dL Normal 3.3-5.0 [facility] Comment on above: Performed By: #### 2 700593, 55091775, 7465269, 93742384, 2694137 ####[facility] [address] [place] [address] Albumin/Globulin (S) [Mass conc ratio] 1.2 Normal 1.1-2.2 [facility] Comment on above: Performed By: #### 2 626606, 95402037, 5031301, 26365500, 8448190 ####[facility] [address] [place] [address] ALP [Catalytic activity/Vol] 79 Int._Unit/L Normal 21-98 [facility] Comment on above: Performed By: #### 2 119422, 15530179, 4742513, 01959704, 8281983 ####[facility] [address] [place] [address] ALT No additional P-5'-P [Catalytic activity/Vol] 14 Int._Unit/L Normal 6-46 [facility] Comment on above: Performed By: #### 2 762465, 96731014, 7581292, 13899645, 1825457 ####[facility] [address] [place] [address] Anion gap [Moles/Vol] 12 mmol/L Normal 6-16 [facility] Comment on above: Performed By: #### 2 241630, 69134744, 2449391, 22193262, 0888288 ####[address] [place] [address] AST [Catalytic activity/Vol] 16 Int._Unit/L Normal 5-43 [facility] Comment on above: Performed By: #### 2 835617, 05607841, 7637508, 56246280, 3074836 ####[facility] [address] [place] [address] Bilirubin [Mass/Vol] 1.0 mg/dL Normal 0.0-1.1 [facility] Comment on above: Performed By: #### 2 792983, 99376472, 8332007, 77245202, 1310207 ####[facility] [address] [place] [address] Calcium [Mass/Vol] 8.7 mg/dL Low 8.9-11.1 [facility] Comment on above: Performed By: #### 2 584904, 61955950, 5877749, 42895223, 2985007 ####[facility] [address] [place] [address] Chloride [Moles/Vol] 107 mmol/L Normal 101-111 [facility] Comment on above: Performed By: #### 2 998608, 61308126, 7586279, 02755786, 3768596 ####[facility] [address] [place] [address] CO2 [Moles/Vol] 23 mmol/L Normal 21-31 [facility] Comment on above: Performed By: #### 2 198545, 47504845, 4572661, 15672829, 9919349 ####[facility] [address] [place] [address] Creatinine [Mass/Vol] 1.2 mg/dL Normal 0.5-1.3 [facility] Comment on above: Performed By: #### 2 701189, 99373530, 7673590, 46346302, 9080632 ####[facility] [address] [place] [address] Globulin (S) [Mass/Vol] 3.1 g/dL Normal 1.4-4.0 [facility] Comment on above: Performed By: #### 2 050501, 85526776, 8812168, 43809461, 5099780 ####[facility] [address] [place] [address] Glucose [Mass/Vol] 121 mg/dL Normal 55-199 [facility] Comment on above: Result Comment: If t his glucose result represents a fasting glucose, interpretation should refer to the following reference range: 55-99 mg/dL Performed By: #### 2 218924, 41627302, 7544270, 70503943, 8165977 ####[facility] [address] [place] [address] Potassium [Moles/Vol] 4.0 mmol/L Normal 3.5-5.3 [facility] Comment on above: Performed By: #### 2 219249, 66286928, 4211919, 72208341, 8112422 ####[facility] [address] [place] [address] Protein [Mass/Vol] 6.7 g/dL Normal 6.0-7.8 [facility] Comment on above: Performed By: #### 2 908838, 85142914, 8780311, 05418688, 7255707 ####[facility] [address] [place] [address] Sodium [Moles/Vol] 138 mmol/L Normal 135-145 [facility] Comment on above: Performed By: #### 2 878165, 78431069, 7910963, 70645257, 2461635 ####[facility] [address] [place] [address] Urea nitrogen [Mass/Vol] 26 mg/dL High 5-21 [facility] Comment on above: Performed By: #### 2 971700, 83888185, 0095491, 50926085, 7059317 ####[facility] [address] [place] [address] Urea nitrogen/Creatinine [Mass ratio] 22 No Units High 10-20 [facility] Comment on above: Performed By: #### 2 924965, 93209565, 0298325, 36336711, 3534069 ####[facility] [address] [place] [address] HEMATOLOGYOrdered By: SYSTEM SYSTEM on 06-05-2022 Basophils/100 WBC (Bld) 2.5 [...] [facility] Reference Laboratory Testing Ordered By: Chrissy DomainUsematt on 06-05-2022 Cancer Ag 27-29 Qn 17.2 unit/mL Invalid Interpretation Code 0.0-38.6un it/mL [facility] SendOutsSS Comment on above: Result Comment: [facility] Immunochemiluminometric Methodology (ICMA) Values obtained with different assay methods or kits cannot be used interchangeably. Results cannot be interpreted as absolute evidence of the presence or absence of malignant disease. Performed at: [facility] [id number] PhD [place] Avelar eGFRon 06-05-2022 GFR/1.73 sq M.predicted among blacks MDRD (S/P/Bld) [Vol rate/Area] 54 mL/min/1.73 m2 Low >=59 [facility] Comment on above: Order Comment: Order added by Discern Expert. Result Comment: eGFR is race adjusted. AA=. Performed By: #### 2 801309, 83197995, 9206749, 31362527, 9836344 ####[facility] [address] [place] [address] GFR/1.73 sq M.predicted among non-blacks MDRD (S/P/Bld) [Vol rate/Area] 44 mL/min/1.73 m2 Low >=59 [facility] Comment on above: Order Comment: Order added by Discern Expert. Result Comment: Psych Therapist aubrey kidney disease could be indicated at eGFR's of less than 60 mL/min/1.73m2. Kidney failure is indicated at less than 15 mL/min/1.73m2. Performed By: #### 2 754081, 75612396, 3045167, 93793084, 0726063 ####[facility] [address] [place] [address] CHEMISTRYOrdered By: SYSTEM SYSTEM on 05-07-2022 Albumin [Mass/Vol] 3.7 g/dL Normal 3.3 - 5.0 gm/dL FT Remisol Albumin/Globulin [Mass ratio] 1.2 {ratio} Normal [...] 40 mL/min/1.73 m2 Low >=59mL/min /1.73 m2 [facility] Chem S Globulin (S) [Mass/Vol] 3.2 g/dL Normal 1.4 - 4.0 gm/dL FT Remisol Glucose [Mass/Vol] 144 mg/dL Normal 55 - 199 mg/dL [facility] [...] [facility] HEMATOLOGYOrdered By: SYSTEM SYSTEM on 05-07-2022 Basophils/100 [...] 3.8 E9/L Low 4.0 - 11.0 E9/L [facility] CHEMISTRYOrdered By: SYSTEM SYSTEM on 04-05-2022 Albumin [...] m2 FT Chem S Globulin (S) [Mass/Vol] 2.9 g/dL Normal 1.4 - 4.0 gm/dL [facility] Glucose [Mass/Vol] 129 mg/dL Normal 55 - 199 mg/dL [facility] Potassium [Moles/Vol] 4.2 mmol/L Normal 3.5 - 5.3 mmol/L [facility] Protein [Mass/Vol] 6.4 g/dL Normal 6.0 - 7.8 gm/dL [facility] Sodium [Moles/Vol] 137 mmol/L Normal 135 - 145 mmol/L [facility] Urea nitrogen [Mass/Vol] 23 mg/dL High 5 - 21 mg/dL [facility] Urea nitrogen/Creatinine [Mass ratio] 18 mg/mg Normal 10 - 20 [facility] HEMATOLOGYOrdered By: SYSTEM SYSTEM on 04-05-2022 Basophils/100 [...] 4.5 E12/L Normal 4.3 - 5.9 E12/L [facility] WBC corrected for nucl RBC Auto (Bld) [#/Vol] 4.8 E9/L Normal 4.0 - 11.0 E9/L [facility] CHEMISTRYOrdered By: SYSTEM SYSTEM on 12-26-2021 Albumin [...] mg/dL Normal 0.0 - 1 .1 mg/dL FT Remisol Calcium [Mass/Vol] 9.0 mg/dL Normal 8.9 - 11. 1 mg/dL [facility] Chloride [Moles/Vol] 106 mmol/L Normal 101 - 1 11 mmol/L [facility] CO2 [Moles/Vol] 22 mmol/L Normal 21 - 31 mmol/L [facility] Creatinine [Mass/Vol] 1.6 mg/dL High 0.5 - 1.3 mg/dL FT Remisol GFR/1.73 sq M.predicted among blacks MDRD (S/P/Bld) [Vol rate/Area] 38 mL/min/1.73 m2 Low >=59mL/min /1.73 m2 [facility] Chem S GFR/1.73 sq M.predicted among non-blacks MDRD (S/P/Bld) [Vol rate/Area] 32 mL/min/1.73 m2 Low >=59mL/min /1.73 m2 [facility] Chem S Globulin (S) [Mass/Vol] 3.5 g/dL Normal 1.4 - 4.0 gm/dL FT Remisol Glucose [Mass/Vol] 222 mg/dL High 55 - 199 mg/dL FT Remisol Potassium [Moles/Vol] 4.5 mmol/L Normal 3.5 - 5.3 mmol/L FT Remisol Protein [Mass/Vol] 7.2 g/dL Normal 6.0 - 7.8 gm/dL FT Remisol Sodium [Moles/Vol] 136 mmol/L Normal 135 - 145 mmol/L [facility] Remisol Urea nitrogen [Mass/Vol] 30 mg/dL High 5 - 21 mg/dL [facility] Rem[facility] Urea nitrogen/Creatinine [Mass ratio] 19 mg/mg Normal 10 - 20 [facility] HEMATOLOGYOrdered By: SYSTEM SYSTEM on 12-26-2021 Basophils/100 WBC (Bld) 3.1 % High 0.0 - 2.0 % FT HemeAutoSS Basophils/Leukocytes Auto (Bld) [Pure # fraction] 0.2 E9/L Normal 0.0 - 0.2 E9/L FT HemeAutoSS Eosinophils/100 WBC (Bld) 3.1 % Normal [...] 20 mL/min/1.73 m2 Low >=59mL/min /1.73 m2 [facility] Chem S Globulin (S) [Mass/Vol] 3.2 g/dL [...] 4.0 E9/L Normal 4.0 - 11.0 E9/L FT HemeAutoSS CHEMISTRYOrdered By: SYSTEM SYSTEM on 10-02-2021 [...] 37 mL/min/1.73 m2 Low >=59mL/min /1.73 m2 [facility] Chem S Globulin (S) [Mass/Vol] 3.5 g/dL [...] 10 - 20 [facility] Rem[facility] HEMATOLOGYOrdered By: [email or web address] SYSTEM on 10-02-2021 Basophils/100 WBC (Bld) 2.8 [...] 4.0 E9/L [facility] Monocytes/100 WBC (Bld) 4.9 % Normal 4.0 - 14.0 % [facility] Monocytes/Leukocytes Auto (Bld) [Pure # fraction] 0.2 E9/L Normal 0.2 - 1.0 E9/L [facility] Neutrophils/100 WBC (Bld) 56.0 % Normal 36.0 - 75.0 % [facility] Neutrophils/Leukocytes Auto (Bld) [Pure # fraction] 2.2 E9/L Normal 2.0 - 7.5 E9/L [facility] HEMATOLOGYOrdered By: Lisette Tadeo on 10-02-2021 Erythrocyte distribution width (RBC) [Ratio] 19.0 % High 10.9 - 14.2 % [facility] Hematocrit (Bld) [Volume fraction] 38.9 % Normal 34.0 - 46.0 % [facility] Hemoglobin (Bld) [Mass/Vol] 13.3 g/dL Normal 12.0 - 16.0 gm/dL [facility] MCH (RBC) [Entitic mass] 31.2 pg Normal 27.0 - 34.0 pg [facility] MCHC (RBC) [Mass/Vol] 34.1 g/dL Normal 31.4 - 36.0 gm/dL [facility] MCV (RBC) [Entitic vol] 91.6 fL Normal 80.0 - 100.0 fL [facility] Platelet mean volume (Bld) [Entitic vol] 7.8 fL Normal 6.4 - 10.8 fL [facility] Platelets (Bld) [#/Vol] 317.0 E9/L Normal 150. 0 - 500.0 E9/L [facility] Comment on above: Result Comment: Plat elet count verified using smear estimate. 10/02/2021 15:55:05 EDT RBC (Bld) [#/Vol] 4.2 E12/L Low 4.3 - 5.9 E12/L FT HemeAutoSS WBC corrected for nucl RBC Auto (Bld) [#/Vol] 4.0 E9/L Normal 4.0 - 11.0 E9/L [facility] HemeAuto[facility] Clinic Note - Heme Onc Sched [...] Documentation: Clinic Location/Phone Number: Clinic Location/Phone Number: [facility] End Of Visit MU Report Item: Visit Summary given or mailed to patientyes Mailed to patient Electronic Signatures: Isa Wong (SEC) (Signed 28-Aug-2021 16:01) Authored: Retrieve Patient Instructions, End of Visit Documentation Last Updated: 28-Aug-2021 16:01 by Isa Wong (SEC) Normal [facility] Note - Heme Onc-New Evaristo king 08-28-2021 Clinic Note - Heme Onc-New Visit Patient Visit Information: Visit Type: New Visit Cancer History: Breast AJCC Edition: 8th (AJCC), Diagnosis Date: August 2021, Stage(no match), pM1 G2 History of Present Illness: ID Statement: null is a () day old null Interval History: BREAST CANCER DIAGNOSIS metastatic ER+/OR+/HER2- breast cancer ([id number]) CONSULTING ONCOLOGIST Dr David Caldera CURRENT THERAPY anastrozole/ribociclib x 3 weeks HPI Patient is a pleasant 71 y/o woman here for a 2nd opinion. She presented on 06/29/21 with a 4.2cm mass in the right breast which she had for >1 year. Biopsy revealed ER/OR >95%/HER2- breast cancer. Also has known h/p [...] corresponding to (more content not included)... Normal [facility] Clinic Note - Intakeon 08-28 Clinic Note [...] (kg/m2)39 kg/M2 BSA (m2)2.08 M2 Nursing Verification [id number] Nursing Verification Height in cm159 centimeter(s) SpO2 (%)98 % SpO2 Patient Onroom air Pain Screening: Patient States Painno (0) Stunner for intimate exam offered to patient: Patient [...] you are livingno Depression: Past 2 wks: [place] down, depressed or hopelessno Past 2 wks: [place] little interest/pleasure doing thingsno Any Thoughts of [...] moving around or learningno Electronic Signatures: Zhane Mulligan) (Signed 28-Aug-2021 13:21) Authored: Patient Visit Information, Vital Signs, Stunner, Allergies, Outpatient Medication Profile, Notification, Travel History, Falls, Spiritual/Procedural, Adv Dir, Violence, Depression, Substance, Nutrition/Learning Lisette Valle (RN) (Signed 28-Aug-2021 15:47) Authored: Vital Signs, Notification Co-Signer: Patient Visit Information, Vital Signs, Stunner, Allergies, Outpatient Medication Profile, Notification, Travel History, Falls, Spiritual/Procedural, Adv Dir, Violence, Depression, Substance, Nutrition/Learning Last Updated: 28-Aug-2021 15:47 by Lisette Valle (RN) Normal [facility] Narrative Note - Outpatient- Community Health Workeron 08-25-2021 Narrative Note - Outpatient-Community Health Worker Narrative Note: [facility] Health Worker Best way to contact patient#[id number] Veteranno Has patient been seen by a [...] and she stated that she has [employer] insurance. Pt. also stated he last name was being spelled wrong and that it should list [place] not [place]. Electronic Signatures: Leroy Gallegos (COOR) (Signed 25-Aug-2021 11:50) Authored: CHW Last Updated: 25-Aug-2021 11:50 by Leroy Gallegos (COOR) Normal [facility] CHEMISTRYOrdered By: SYSTEM SYSTEM on 08-21-2021 Albumin [...] rate/Area] mL/min/1.73 m2 Normal >=59mL/min /1.73 m2 FT Chem S GFR/1.73 sq M.predicted among non-blacks MDRD (S/P/Bld) [Vol rate/Area] 54 mL/min/1.73 m2 Low >=59mL/min /1.73 m2 FT [...] 88.9 fL Normal 80.0 - 100.0 fL [facility]eAuto[facility] Platelet mean volume (Bld) [Entitic vol] 7.9 fL Normal 6.4 - 10.8 fL [facility]eAuto[facility] Platelets (Bld) [#/Vol] 185.0 E9/L Normal 150. 0 - 500.0 E9/L [facility]eAuto[facility] RBC (Bld) [#/Vol] 4.6 E12/L Normal 4.3 - 5.9 E12/L [facility]eAuto[facility] WBC corrected for nucl RBC Auto (Bld) [#/Vol] 7.6 E9/L Normal 4.0 - 11.0 E9/L [facility] HemeAutoSS Nurse Navigator - Breast-Sec ond Opinionon [...] explained role within the multidisciplinary team at [facility]; reviewed upcoming appointment with Dr. Seay, provided [...] needed. RHONDA Mendenhall, RN Electronic Signatures: Aliya Dobson) (Signed 16-Aug-2021 11:34) Authored: Care Navigation, Barriers to Care, Interventions, Team Communications/Referrals, Preview Last Updated: 16-Aug-2021 11:34 by Aliya Dobson) Normal [facility] CHEMISTRYOrdered By: SYSTEM SYSTEM on 08-07-2021 Albumin [...] 11. 1 mg/dL FT Remisol Chloride [Moles/Vol] 107 mmol/L Normal 101 - 1 11 mmol/L [facility] CO2 [Moles/Vol] 21 mmol/L Normal 21 - 31 mmol/L [facility] Creatinine [Mass/Vol] 1.1 mg/dL Normal 0.5 - 1.3 mg/dL [facility] GFR/1.73 sq M.predicted among blacks MDRD (S/P/Bld) [Vol rate/Area] 59 mL/min/1.73 m2 Normal >=59mL/min /1.73 m2 [facility] Chem S GFR/1.73 sq M.predicted among non-blacks MDRD (S/P/Bld) [Vol rate/Area] 49 mL/min/1.73 m2 Low >=59mL/min /1.73 m2 FT Chem S Globulin (S) [Mass/Vol] 3.4 g/dL Normal 1.4 - 4.0 gm/dL [facility] Glucose [Mass/Vol] 151 mg/dL Normal 55 - 199 mg/dL [facility] Rem[facility] Potassium [Moles/Vol] 4.5 mmol/L Normal 3.5 - 5.3 mmol/L [facility] Remisol Protein [Mass/Vol] 7.0 g/dL Normal 6.0 - 7.8 gm/dL [facility] Sodium [Moles/Vol] 135 mmol/L Normal 135 - 145 mmol/L [facility] Urea nitrogen [Mass/Vol] 30 mg/dL High 5 - 21 mg/dL [facility] Urea nitrogen/Creatinine [Mass ratio] 27 mg/mg [...] 1.0 E9/L [facility] Neutrophils/100 WBC (Bld) 65.2 % Normal 36.0 - 75.0 % [facility] Neutrophils/Leukocytes Auto (Bld) [Pure # fraction] 3.9 E9/L Normal 2.0 - 7.5 E9/L [facility] HEMATOLOGYOrdered By: Katherine Last on 08-07-2021 Erythrocyte distribution width (RBC) [Ratio] 14.3 % High 10.9 - 14.2 % [facility] Hematocrit (Bld) [Volume fraction] 42.8 % Normal 34.0 - 46.0 % [facility] Hemoglobin (Bld) [Mass/Vol] 14.5 g/dL Normal 12.0 - 16.0 gm/dL [facility] MCH (RBC) [Entitic mass] 29.8 pg Normal 27.0 - 34.0 pg FT HemeAuto[facility] MCHC (RBC) [Mass/Vol] 33.9 g/dL Normal 31.4 - 36.0 gm/dL [facility] MCV (RBC) [Entitic vol] 87.7 fL Normal 80.0 - 100.0 fL [facility] Platelet mean volume (Bld) [Entitic vol] 7.5 fL Normal 6.4 - 10.8 fL [facility] Platelets (Bld) [#/Vol] 196.0 E9/L Normal 150. 0 - 500.0 E9/L [facility] RBC (Bld) [#/Vol] 4.9 E12/L Normal 4.3 - 5.9 E12/L [facility] HemeAuto[facility] WBC corrected for nucl RBC Auto (Bld) [#/Vol] 6.1 E9/L Normal 4.0 - 11.0 E9/L [facility] Vital Signs Date Time Vital Sign Value Performing Clinician Facility 05-01-2023 14:03-0500 Heart rate 70 /min [facility]-01-[facility] 14:03-0500 SaO2% (BldA) [Mass fraction] 98 % [facility] 05-01-2023 14:02-0500 Body temperature 98.24 [degF] [facility] [place] 05-01-2023 14:02-0500 Diastolic blood pressure 81 mm[Hg] [facility] 05-01-2023 14:02-0500 Mean blood pressure 93 mm[Hg] [facility] 05-01-2023 14:02-0500 Systolic blood pressure 118 mm[Hg] [facility] 01-30-2023 14:25-0400 Heart rate 76 /min [facility] 01-30-2023 14:25-0400 SaO2% (BldA) [Mass fraction] 96 % [facility] 10-11-2023 14:25-0400 Diastolic blood pressure 61 mm[Hg] Senthilleopoldo Caldera [facility] 01-30-2023 14:25-0400 Mean blood pressure 79 mm[Hg] Senthil Caldera [facility] 01-30-2023 14:25-0400 Systolic blood pressure 115 mm[Hg] Senthilleopoldo Caldera [facility] 01-30-2023 14:25-0400 Body temperature 97.7 [degF] Senthil Caldera [facility] 01-30-2023 14:00-0400 Blood Pressure Location Senthilleopoldo Caldera [facility] 01-30-2023 14:00-0400 Respiratory rate 16 /min Senthilleopoldo Caldera [facility] 12-23-2022 10:15-0400 Hourly Rounding Mbanefo OJUKWU [facility] 12-23-2022 10:15-0400 Promise to Return Mbanefo OJUKWU [facility] 12-23-2022 09:00-0400 Hourly Rounding Mbanefo OJUKW[facility] 12-23-2022 09:00-0400 Promise to Return Mbanefo [facility]JUKW[facility] 12-23-2022 08:46-0400 Diastolic blood pressure 64 mm[Hg] Mbanefo OJUKW[facility] 12-23-2022 08:46-0400 Systolic blood pressure 96 mm[Hg] Mbanefo OJUKW[facility] 12-23-2022 08:40-0400 gluc 111 mg/dL Mbanefo [facility]JUKW[facility] 12-23-2022 08:37-0400 Heart rate 56 /min Mbanefo [facility]JUKW[facility] 12-23-2022 08:37-0400 SaO2% (BldA) [Mass fraction] 96 % Mbanefo OJUKWU [facility] 12-23-2022 08:37-0400 Respiratory rate 18 /min Mbanefo OJUKWU [facility] 12-23-2022 08:37-0400 Body temperature 97.88 [degF] Mbanefo OJUKWU [facility] 12-23-2022 08:37-0400 Diastolic blood pressure 64 mm[Hg] Mbanefo OJUKWU [facility] 12-23-2022 08:37-0400 Mean blood pressure 74 mm[Hg] Mbanefo OJUKWU [facility] 12-23-2022 08:37-0400 Systolic blood pressure 96 mm[Hg] Mbanefo OJUKWU [facility] 12-23-2022 08:00-0400 Hourly Rounding Mbanefo OJUKWU [facility] 12-23-2022 08:00-0400 Promise to Return Mbanefo OJUKWU [facility] 12-22-2022 23:44-0400 Heart rate 58 /min Mbanefo OJUKW[facility] 12-22-2022 23:44-0400 SaO2% (BldA) [Mass fraction] 97 % Mbanefo OJUKWU [facility] 12-22-2022 23:44-0400 Body temperature 98.06 [degF] Mbanefo OJUKWU [facility] 12-22-2022 23:44-0400 Diastolic blood pressure 60 mm[Hg] Mbanefo OJUKWU [facility] 12-22-2022 23:44-0400 Mean blood pressure 72 mm[Hg] Mbanefo OJUKWU [facility] 12-22-2022 23:44-0400 Systolic blood pressure 96 mm[Hg] Mbanefo OJUKWU [facility] 12-22-2022 19:33-0400 Heart rate 62 /min Mbanefo OJUKW[facility] 12-22-2022 19:33-0400 SaO2% (BldA) [Mass fraction] 97 % Mbanefo OJUKWU [facility] 12-22-2022 19:33-0400 Body temperature 98.24 [degF] Mbanefo OJUKWU [facility] 12-22-2022 19:32-0400 Mean blood pressure 69 mm[Hg] Mbanefo OJUKWU [facility] 12-22-2022 16:03-0400 gluc 129 mg/dL Mbanefo OJUKW[facility] 12-22-2022 15:46-0400 Respiratory rate 16 /min Mbanefo [facility]JUKW[facility] 12-22-2022 11:52-0400 gluc 158 mg/dL Mbanefo [facility]JUKW[facility] 12-22-2022 11:13-0400 Respiratory rate 13 /min Mbanefo [facility]JUKW[facility] 12-22-2022 06:56-0400 Blood Pressure Location Mbanefo OJUKWU [facility] 12-22-2022 06:56-0400 Body temperature 98.42 [degF] Mbanefo OJUKWU [facility] 12-22-2022 06:56-0400 Mean blood pressure 85 mm[Hg] Mbanefo OJUKWU [facility] 12-21-2022 23:00-0400 Blood Pressure Location Mbanefo OJUKWU [facility] 12-21-2022 23:00-0400 Body temperature 98.96 [degF] Mbanefo OJUKWU [facility] 12-21-2022 23:00-0400 Mean blood pressure 84 mm[Hg] Mbanefo OJUKWU [facility] 12-21-2022 05:35-0400 Mean blood pressure 79 mm[Hg] Mbanefo OJUKWU [facility] 12-20-2022 21:08-0400 Body temperature 97.7 [degF] Mbanefo OJUKWU [facility] 12-20-2022 21:08-0400 Heart rate 65 /min Mbanefo [facility]JUKW[facility] 12-20-2022 15:06-0400 Heart rate 75 /min Mbanefo OJUKWU [facility] 12-20-2022 00:45-0400 Diastolic blood pressure 72 mm[Hg] David Ran [facility] 12-20-2022 00:45-0400 Heart rate 76 /min David Ran [facility] 12-20-2022 00:45-0400 Mean blood pressure 89 mm[Hg] David Ran [facility] 12-20-2022 00:45-0400 Respiratory rate 14 /min David Ran [facility] 12-20-2022 00:45-0400 SaO2% (BldA) [Mass fraction] 100 % David Ran [facility] 12-20-2022 00:45-0400 Systolic blood pressure 124 mm[Hg] David Ran [facility] 12-20-2022 00:15-0400 Diastolic blood pressure 70 mm[Hg] David Ran [facility] 12-20-2022 00:15-0400 Heart rate 71 /min David Ran [facility] 12-20-2022 00:15-0400 Mean blood pressure 92 mm[Hg] David Ran [facility] 12-20-2022 00:15-0400 Respiratory rate 14 /min David Ran [facility] 12-20-2022 00:15-0400 SaO2% (BldA) [Mass fraction] 92 % David Ran [facility] 12-20-2022 00:15-0400 Systolic blood pressure 137 mm[Hg] David Ran [facility] 12-19-2022 23:45-0400 Diastolic blood pressure 61 mm[Hg] David Ran [facility] 12-19-2022 23:45-0400 Heart rate 80 /min David Ran [facility] 12-19-2022 23:45-0400 Mean blood pressure 85 mm[Hg] David Ran [facility] 12-19-2022 23:45-0400 Respiratory rate 16 /min David Tong [facility] 12-19-2022 23:45-0400 SaO2% (BldA) [Mass fraction] 97 % David Tong [facility] 12-19-2022 23:45-0400 Systolic blood pressure 132 mm[Hg] David Tong [facility] 12-19-2022 20:41-0400 Body temperature 98.24 [degF] David Tong [facility] 12-19-2022 20:41-0400 Heart rate 82 /min David Tong [facility] 12-19-2022 20:41-0400 Respiratory rate 20 /min David Tong [facility] 12-17-2022 13:20-0400 Diastolic blood pressure 77 mm[Hg] Jeffery Murphy [facility] 12-17-2022 13:20-0400 Heart rate 60 /min Jeffery Murphy [facility] 12-17-2022 13:20-0400 Hourly Rounding Jeffery Murphy [facility] 12-17-2022 13:20-0400 Mean blood pressure 95 mm[Hg] Jeffery Murphy [facility] 12-17-2022 13:20-0400 Promise to Return Jeffery Murphy [facility] 12-17-2022 13:20-0400 SaO2% (BldA) [Mass fraction] 97 % Jeffery Castelane [facility] 12-17-2022 13:20-0400 Systolic blood pressure 132 mm[Hg] Jeffery Castelane [facility] 12-17-2022 12:20-0400 Diastolic blood pressure 71 mm[Hg] Jeffery Katherine [facility] 12-17-2022 12:20-0400 Heart rate 71 /min Jeffery Katherine [facility] 12-17-2022 12:20-0400 Hourly Rounding Jeffery Katherine [facility] 12-17-2022 12:20-0400 Mean blood pressure 86 mm[Hg] Jeffery Katherine [facility] 12-17-2022 12:20-0400 Promise to Return Jeffery Katherine [facility] 12-17-2022 12:20-0400 SaO2% (BldA) [Mass fraction] 96 % Jeffery Katherine [facility] 12-17-2022 12:20-0400 Systolic blood pressure 117 mm[Hg] Jeffery Katherine [facility] 12-17-2022 11:21-0400 Hourly Rounding Jeffery Katherine [facility] 12-17-2022 11:21-0400 Promise to Return Jeffery Katherine [facility] 12-17-2022 11:20-0400 Diastolic blood pressure 84 mm[Hg] Jeffery Katherine [facility] 12-17-2022 11:20-0400 Heart rate 68 /min Jeffery Katherine [facility] 12-17-2022 11:20-0400 Mean blood pressure 99 mm[Hg] Jeffery Katherine [facility] 12-17-2022 11:20-0400 Respiratory rate 18 /min Jeffery Katherine [facility] 12-17-2022 11:20-0400 SaO2% (BldA) [Mass fraction] 96 % Jeffery Murphy [facility] 12-17-2022 11:20-0400 Systolic blood pressure 130 mm[Hg] Jeffery Murphy [facility] 12-17-2022 10:22-0400 Body temperature 97.88 [degF] Jeffery Murphy [facility] 12-17-2022 10:22-0400 Heart rate 69 /min Jeffery Murphy [facility] 12-17-2022 10:22-0400 Respiratory rate 18 /min Jeffery Murphy [facility] 11-04-2022 14:00-0400 Hourly Rounding Ronobir JESSICA [facility] 11-04-2022 13:40-0400 Hourly [address] Ronobir JESSICA [facility] 11-04-2022 13:40-0400 Promise to Return Ronobir JESSICA [facility] 11-04-2022 13:00-0400 Hourly Rounding Ronobir JESSICA [facility] 11-04-2022 12:26-0400 Promise to Return Ronobir JESSICA [facility] 11-04-2022 11:48-0400 Heart rate 78 /min Ronobir JESSICA [facility] 11-04-2022 11:48-0400 SaO2% (BldA) [Mass fraction] 95 % Ronobir JESSICA [facility] 11-04-2022 11:48-0400 Diastolic blood pressure 83 mm[Hg] Ronobir JESSICA [facility] 11-04-2022 11:48-0400 Mean blood pressure 96 mm[Hg] Ronobir JESSICA [facility] 11-04-2022 11:48-0400 Systolic blood pressure 122 mm[Hg] Ronobir JESSICA [facility] 11-04-2022 11:48-0400 Body temperature 98.24 [degF] Ronobir JESSICA [facility] 11-04-2022 11:17-0400 Promise to Return Ronobir JESSICA [facility] 11-04-2022 08:24-0400 Diastolic blood pressure 78 mm[Hg] Ronobir JESSICA [facility] 11-04-2022 08:24-0400 Systolic blood pressure 127 mm[Hg] Ronobir JESSICA [facility] 11-04-2022 07:32-0400 Heart rate 77 /min Ronobir JESSICA [facility] 11-04-2022 07:32-0400 SaO2% (BldA) [Mass fraction] 94 % Ronobir JESSICA [facility] 11-04-2022 07:31-0400 Body temperature 97.7 [degF] Ronobir JESSICA [facility] 11-04-2022 07:31-0400 Diastolic blood pressure 78 mm[Hg] Ronobir JESSICA [facility] 11-04-2022 07:31-0400 Mean blood pressure 94 mm[Hg] Ronobir JESSICA [facility] 11-04-2022 07:31-0400 Systolic blood pressure 127 mm[Hg] Ronobir JESSICA [facility] 11-03-2022 23:16-0400 Heart rate 79 /min Ronobir JESSICA [facility] 11-03-2022 23:16-0400 SaO2% (BldA) [Mass fraction] 97 % Ronobir JESSICA [facility] 11-03-2022 23:16-0400 Mean blood pressure 108 mm[Hg] Ronobir JESSICA [facility] 11-03-2022 23:15-0400 Body temperature 97.7 [degF] Ronobir JESSICA [facility] 11-03-2022 20:00-0400 Blood Pressure Location Ronobir JESSICA [facility] 11-03-2022 20:00-0400 Respiratory rate 21 /min Ronobir JESSICA [facility] 11-03-2022 09:00-0400 Mean blood pressure 87 mm[Hg] Ronobir JESSICA [facility] 11-03-2022 09:00-0400 Respiratory rate 16 /min Ronobir JESSICA [facility] 11-02-2022 21:15-0400 Mean blood pressure 95 mm[Hg] Ronobir JESSICA [facility] 11-02-2022 11:51-0400 Respiratory rate 18 /min Ronobir JESSICA [facility] 11-02-2022 03:50-0400 Heart rate 68 /min Ronobir JESSICA [facility] 11-02-2022 03:18-0400 Respiratory rate 10 /min Ronobir JESSICA [facility] 11-02-2022 02:38-0400 Nursing Progress Note Reason Other: pt complains of back pain. repositioned in bed. medicated for pain. Ronobir JESSICA [facility] 11-02-2022 02:38-0400 Respiratory rate 7 /min Ronobir JESSICA [facility] 11-02-2022 02:37-0400 Heart rate 73 /min Ronobir JESSICA [facility] 11-01-2022 23:15-0400 Nursing Progress Note Reason Other: trauma made medical at this time. mini cath done and urine sent to lab. pt repositioned in bed Ronobir JESSICA [facility] 11-01-2022 22:53-0400 Body temperature 96.62 [degF] Ronobir JESSICA [facility] 11-01-2022 22:53-0400 Heart rate 74 /min Ronobir JESSICA [facility] 11-01-2022 22:03-0400 Heart rate 69 /min Ronobir JESSICA [facility] 08-01-2022 13:00-0400 Blood Pressure Location [facility] 08-01-2022 13:00-0400 Body temperature 98.6 [degF] [place] 08-01-2022 13:00-0400 Diastolic blood pressure 84 mm[Hg] [facility]-01-[facility] 13:00-0400 Heart rate 76 /min [facility] 08-01-2022 13:00-0400 Mean blood pressure 101 mm[Hg] [facility] 08-01-2022 13:00-0400 Respiratory rate 16 /min [facility] 08-01-2022 13:00-0400 SaO2% (BldA) [Mass fraction] 97 % [facility] 08-01-2022 13:00-0400 Systolic blood pressure 136 mm[Hg] [facility] 06-06-2022 12:59-0500 Heart rate 61 /min [facility] 06-06-2022 12:59-0500 SaO2% (BldA) [Mass fraction] 98 % [facility] 06-06-2022 12:59-0500 Respiratory rate 16 /min [place] 06-06-2022 12:59-0500 Body temperature 97.7 [degF] [facility] 06-06-2022 12:58-0500 Diastolic blood pressure 106 mm[Hg] [facility] 06-06-2022 12:58-0500 Mean blood pressure 116 mm[Hg] [facility] 06-06-2022 12:58-0500 Systolic blood pressure 137 mm[Hg] [facility] 03-28-2022 14:10-0500 Heart rate 66 /min [facility] 03-28-2022 14:10-0500 SaO2% (BldA) [Mass fraction] 96 % [facility] 03-28-2022 14:09-0500 Body temperature 98.42 [degF] [facility] 03-28-2022 14:09-0500 Diastolic blood pressure 77 mm[Hg] [facility] 03-28-2022 14:09-0500 Mean blood pressure 93 mm[Hg] [facility] 03-28-2022 14:09-0500 Systolic blood pressure 127 mm[Hg] [facility] 03-28-2022 14:09-0500 Blood Pressure Location [facility] 03-28-2022 14:09-0500 Body temperature 98.42 [degF] Senthil Caldera [facility] 03-28-2022 14:09-0500 Mean blood pressure 94 mm[Hg] Senthilleopoldo Caldera [facility] 03-28-2022 14:09-0500 Respiratory rate 18 /min Senthil Caldera [facility] 01-18-2022 14:13-0400 Blood Pressure Location Senhtilleopoldo Caldera [facility] 01-18-2022 14:13-0400 Body temperature 98.06 [degF] [place] 01-18-2022 14:13-0400 BP/Pulse Patient Position Senthilleopoldo Caldera [facility] 01-18-2022 14:13-0400 Diastolic blood pressure 82 mm[Hg] [facility] 01-18-2022 14:13-0400 Heart rate 59 /min [facility] 01-18-2022 14:13-0400 Mean blood pressure 98 mm[Hg] [facility] 01-18-2022 14:13-0400 Respiratory rate 16 /min [facility] 01-18-2022 14:13-0400 SaO2% (BldA) [Mass fraction] 98 % [facility] 01-18-2022 14:13-0400 Systolic blood pressure 131 mm[Hg] Senthilleopoldo Caldera [facility] 12-21-2021 13:34-0400 Blood Pressure Location Nohemi Garcia [facility] 12-21-2021 13:34-0400 Body temperature 98.6 [degF] Nohemi Garcia [facility] 12-21-2021 13:34-0400 BP/Pulse Patient Position Nohemi Garcia [facility] 12-21-2021 13:34-0400 Diastolic blood pressure 85 mm[Hg] Nohemi Garcia [facility] 12-21-2021 13:34-0400 Heart rate 67 /min Nohemi Garcia [facility] 12-21-2021 13:34-0400 Mean blood pressure 101 mm[Hg] Nohemi Garcia [facility] 12-21-2021 13:34-0400 Respiratory rate 18 /min Nohemi Garcia [facility] 12-21-2021 13:34-0400 SaO2% (BldA) [Mass fraction] 93 % Nohemi Garcia [facility] 12-21-2021 13:34-0400 Systolic blood pressure 132 mm[Hg] Nohemi Garcia [facility] 12-21-2021 13:34-0400 Mean blood pressure 101 mm[Hg] Nohemi Garcia [facility] 11-30-2021 13:16-0400 Body temperature 98.24 [degF] [place] 11-30-2021 13:16-0400 Diastolic blood pressure 79 mm[Hg] [facility] 11-30-2021 13:16-0400 Heart rate 78 /min [facility] 11-30-2021 13:16-0400 Mean blood pressure 98 mm[Hg] [facility] 11-30-2021 13:16-0400 SaO2% (BldA) [Mass fraction] 96 % [facility] 11-30-2021 13:16-0400 Systolic blood pressure 136 mm[Hg] [facility] 11-30-2021 13:00-0400 Blood Pressure Location [facility] 11-30-2021 13:00-0400 Respiratory rate 16 /min Senthil Caldera [facility] 11-02-2021 11:53-0400 Blood Pressure Location Nohemi Garcia [facility] 11-02-2021 11:53-0400 Body temperature 98.06 [degF] Nohemi Garcia [facility] 11-02-2021 11:53-0400 BP/Pulse Patient Position Nohemi Garcia [facility] 11-02-2021 11:53-0400 Diastolic blood pressure 64 mm[Hg] Nohemi Garcia [facility] 11-02-2021 11:53-0400 Heart rate 64 /min Nohemi Garcia [facility] 11-02-2021 11:53-0400 Mean blood pressure 89 mm[Hg] Nohemi Garcia [facility] 11-02-2021 11:53-0400 Respiratory rate 17 /min Nohemi Garcia [facility] 11-02-2021 11:53-0400 SaO2% (BldA) [Mass fraction] 97 % Nohemi Garcia [facility] 11-02-2021 11:53-0400 Systolic blood pressure 140 mm[Hg] Nohemi Garcia [facility] 10-05-2021 13:46-0400 Body temperature 98.42 [degF] Senthil Caldera [facility] 10-05-2021 13:46-0400 Diastolic blood pressure 83 mm[Hg] Senthilleopoldo Caldera [facility] 10-05-2021 13:46-0400 Heart rate 69 /min Senthil Verenice [facility] 10-05-2021 13:46-0400 Mean blood pressure 104 mm[Hg] [facility] 10-05-2021 13:46-0400 SaO2% (BldA) [Mass fraction] 96 % Senthilleopoldo Caldera [facility] 10-05-2021 13:46-0400 Systolic blood pressure 146 mm[Hg] [facility] 09-07-2021 12:48-0400 Body temperature 98.6 [degF] Senthil Caldera [facility] 09-07-2021 12:48-0400 Diastolic blood pressure 70 mm[Hg] [facility] 09-07-2021 12:48-0400 Heart rate 72 /min [facility] 09-07-2021 12:48-0400 Mean blood pressure 83 mm[Hg] [facility] 09-07-2021 12:48-0400 SaO2% (BldA) [Mass fraction] 96 % [facility] 09-07-2021 12:48-0400 Systolic blood pressure 109 mm[Hg] [facility] 09-07-2021 12:00-0400 Heart rate 69 /min [facility] 09-07-2021 12:00-0400 SaO2% (BldA) [Mass fraction] 98 % [facility] 09-03-2021 00:20-0400 Body temperature 98.78 [degF] Carlos Martin [facility] 09-03-2021 00:20-0400 Diastolic blood pressure 80 mm[Hg] Carlos Martin [facility] 09-03-2021 00:20-0400 Heart rate 86 /min Carlos Martin [facility] 09-03-2021 00:20-0400 Respiratory rate 16 /min Carlos Martin [facility] 09-03-2021 00:20-0400 SaO2% (BldA) [Mass fraction] 95 % Carlos Salazar [facility] 09-03-2021 00:20-0400 Systolic blood pressure 146 mm[Hg] Carlos Salazar [facility] 08-10-2021 12:35-0400 Body temperature 98.06 [degF] Rickey Askew [facility] 08-10-2021 12:35-0400 Diastolic blood pressure 72 mm[Hg] Rickey Askew [facility] 08-10-2021 12:35-0400 Heart rate 77 /min Rickey Askew [facility] 08-10-2021 12:35-0400 Mean blood pressure 84 mm[Hg] Rickey Askew [facility] 08-10-2021 12:35-0400 Respiratory rate 12 /min Rickey Askew [facility] 08-10-2021 12:35-0400 SaO2% (BldA) [Mass fraction] 97 % Rickey Askew [facility] 08-10-2021 12:35-0400 Systolic blood pressure 108 mm[Hg] Rickey Askew [facility] 07-26-2021 10:27-0400 Body temperature 97.88 [degF] Senthil Caldera [facility] 07-26-2021 10:27-0400 Diastolic blood pressure 84 mm[Hg] Senthil Caldera [facility] 07-26-2021 10:27-0400 Heart rate 59 /min Senthil Caldera [facility] 07-26-2021 10:27-0400 Mean blood pressure 112 mm[Hg] Senthil Caldera [facility] 07-26-2021 10:27-0400 SaO2% (BldA) [Mass fraction] 97 % [facility] 07-26-2021 10:27-0400 Systolic blood pressure 169 mm[Hg] Senthilleopoldo Caldera [facility] 07-26-2021 10:00-0400 Respiratory rate 16 /min [facility] 07-18-2021 12:18-0400 Body temperature 97.7 [degF] [facility] 07-18-2021 12:18-0400 Diastolic blood pressure 83 mm[Hg] [facility] 07-18-2021 12:18-0400 Heart rate 60 /min [facility] 07-18-2021 12:18-0400 Mean blood pressure 106 mm[Hg] [facility] 07-18-2021 12:18-0400 SaO2% (BldA) [Mass fraction] 98 % [facility] 07-18-2021 12:18-0400 Systolic blood pressure 152 mm[Hg] [facility] 07-18-2021 12:00-0400 Respiratory rate 16 /min [facility] 07-11-2021 10:20-0400 Body temperature 97.7 [degF] Gavino TABOR [facility] [place] Encounters Encounter Date Encounter Type Care Provider Facility Start: 05-01-2023 End: 05-02-2023 ambulatory Senthilleopoldo Caldera Facility:[facility] Start: 05-01-2023 End: 05-01-2023 Patient encounter procedure Senthilleopoldo Caldera [facility] Start: 01-30-2023 End: 01-31-2023 ambulatory Senthilleopoldo Caldera Facility:[facility] Start: 01-30-2023 End: 01-30-2023 Patient encounter procedure Senthilleopoldo Caldera [facility] Start: 12-20-2022 End: 12-23-2022 Evaluation and management of inpatient Zaheer Sloan Facility:[facility] Start: 12-20-2022 End: 12-23-2022 Evaluation and management of inpatient Nic YEPEZ [facility] Start: 12-19-2022 End: 12-20-2022 Emergency department patient visit David Tong Facility:[facility] Start: 12-19-2022 End: 12-20-2022 Emergency department patient visit David Tong [facility] Start: 12-17-2022 End: 12-17-2022 Emergency department patient visit Jeffery Murphy Facility:[facility] Start: 12-17-2022 End: 12-17-2022 Emergency department patient visit Jeffery Murphy [facility] Start: 12-14-2022 End: 12-15-2022 ambulatory Sammy PILAR Facility:[id number] Start: 12-14-2022 End: 12-14-2022 Manual pelvic examination [facility] Start: 12-05-2022 ambulatory Lorie Wright y:[id number] Start: 11-16-2022 End: 12-16-2022 ambulatory Senthil Laishaflaquito Facility:[id number] Start: 11-16-2022 End: 12-16-2022 In-Between Visit [facility] Start: 11-06-2022 End: 11-07-2022 ambulatory Sammy PILAR Facility:[id number] 1 Start: 11-06-2022 End: 11-06-2022 Off-Site [facility] Start: 11-04-2022 End: 12-15-2022 ambulatory Sammy QUEZADA Facility:[facility] Start: 11-01-2022 End: 11-04-2022 ambulatory Wyatt Murray Facility:[facility] Start: 11-01-2022 End: 11-04-[address] [facility] Start: 09-27-2022 End: 09-28-2022 ambulatory Nohemi Garcia Facility:[facility] Start: 09-25-2022 End: 09-26-2022 ambulatory Senthil Hollidayeligio Facility:[facility] Start: 09-25-2022 End: 09-25-2022 Patient encounter procedure Senthil Caldera [facility] Start: 09-08-2022 End: 09-08-2022 Emergency department patient visit Pedro Nava Facility:[facility] Start: 09-08-2022 End: 09-09-2022 ambulatory Senthil Caldera Facility:[facility] Start: 08-01-2022 End: 08-02-2022 ambulatory Senthil Caldera Facility:[facility] Start: 08-01-2022 End: 08-01-2022 Patient encounter procedure Senthil Caldera [facility] Start: 07-30-2022 End: 07-31-2022 ambulatory Senthil Caldera Facility:[facility] Start: 07-30-2022 End: 07-30-2022 Patient encounter procedure Senthil Caldera [facility] Start: 07-25-2022 End: 10-24-2022 ambulatory Senthil Caldera Facility:[facility] Start: 07-25-2022 End: 10-23-2022 Recurring Senthil [facility] Start: 07-09-2022 End: 07-10-2022 ambulatory Senthil Caldera Facility:[facility] Start: 07-09-2022 End: 07-09-2022 Patient encounter procedure Senthil Caldera [facility] Start: 06-06-2022 End: 06-07-2022 amb[facility] Start: 06-06-2022 End: 06-06-2022 Patient encounter procedure Senthil Caldera [facility] Start: 03-28-2022 End: 03-28-2022 Patient encounter procedure Senthil Caldera [facility] Start: 03-17-2022 End: 06-17-[address] [facility] Start: 01-18-2022 End: 01-18-2022 Patient encounter procedure Senthil Caldera [facility] Start: 01-02-2022 End: 09-03-[address] [facility] Start: 12-26-2021 End: 12-26-2021 Patient encounter procedure Senthil Caldera [facility] Start: 12-21-2021 End: 12-21-2021 Patient encounter procedure Nohemi Felizchristosmarkos [facility] Start: 11-30-2021 End: 11-30-2021 Patient encounter procedure Senthil Caldera [facility] Start: 11-27-2021 End: 11-27-2021 Patient encounter procedure Senthil Caldera [facility] Start: 11-25-2021 End: 02-23-[address] [facility] Start: 11-02-2021 End: 11-02-2021 Patient encounter procedure Nohemi Felizyuliya [facility] Start: 11-01-2021 End: 11-01-2021 Patient encounter procedure Senthil Caldera [facility] Start: 10-05-2021 End: 10-05-2021 Patient encounter procedure Senthil Caldera [facility] Start: 10-02-2021 End: 10-02-2021 Patient encounter procedure Senthil Caldera [facility] Start: 09-07-2021 End: 09-07-2021 Patient encounter procedure Senthil Caldera [facility] Start: 09-03-2021 End: 09-03-2021 Emergency department patient visit Carlos Salazar [facility] Start: 08-21-2021 End: 08-21-2021 Patient encounter procedure Senthil Caldera [facility] Start: 08-21-2021 End: 08-21-2021 Patient encounter procedure Senthil Caldera [facility] Start: 08-10-2021 End: 08-10-2021 Patient encounter procedure Rickey Askew [facility] Start: 08-07-2021 End: 08-07-2021 Patient encounter procedure Senthil Caldera [facility] Start: 07-26-2021 End: 07-26-2021 Patient encounter procedure Senthil Caldera [facility] Start: 07-26-2021 End: 07-26-2021 Patient encounter procedure Senthil Caldera [facility] Start: 07-25-2021 End: 08-18-2021 Pre-admission assessment Gavino Matt TABOR [facility] Start: 07-18-2021 End: 07-18-2021 Patient encounter procedure Senthil Caldera [facility] Start: 07-11-2021 End: 07-11-2021 Patient encounter procedure Gavino Matt TABOR [facility] [employer] Procedures Date Procedure Procedure Detail Performing Clinician Start: 07-04-2021 Core needle biopsy o f breast Gavino MARCOSRosemarie Comment on above: right Tonsillectomy and adenoidectomy Gavino MARCOSRosemarie Immunizations Immunization Date Immunization Notes Care Provider Fa cili 01-20-2021 influenza virus vaccine, unspecified formulation Gavino MARCOSRosemarie [facility] [place] Payers Date Payer Category Payer Medicaid [id number] 2022 Medicare [id number] 2022 Medicare [id number] 2021 Private Health Insurance [id number] 1950 Unknown [id number] 2.16.8 40.1.812075.3.579.2.727 1949 Unknown [id number] 2.16.8 40.1.426418.3.579.2.727 1949 Unknown [id number] 2.16.8 40.1.807447.3.579.2.727 1949 Unknown [id number] 2.16.8 40.1.816091.3.579.2.727 1949 Unknown [id number] 2.16.8 40.1.861799.3.579.2.727 1949 Unknown [id number] 2.16.8 40.1.329605.3.579.2.727 1949 Unknown [id number] 2.16.8 40.1.657066.3.579.2.727 1949 Unknown [id number] 2.16.8 40.1.811123.3.579.2.727 1949 Unknown [id number] 2.16.8 40.1.252533.3.579.2.727 1949 Unknown [id number] 2.16.8 40.1.339624.3.579.2.727 1949 Unknown [id number] 2.16.8 40.1.950390.3.579.2.727 1949 Unknown [id number] 2.16.8 40.1.709867.3.579.2.727 1949 Unknown [id number] 2.16.8 40.1.791869.3.579.2.727 1949 Unknown [id number] 2.16.8 40.1.187597.3.579.2.727 1949 Unknown [id number] 2.16.8 40.1.978370.3.579.2.727 1949 Unknown [id number] 2.16.8 40.1.773735.3.579.2.727 1949 Unknown [id number] 2.16.8 40.1.796101.3.579.2.727 1949 Unknown [id number] 2.16.8 40.1.699945.3.579.2.727 1949 Unknown [id number] 2.16.8 40.1.158495.3.579.2.727 1949 Unknown [id number] 2.16.8 40.1.321757.3.579.2.727 Social History Date Type Detail Facility Start: 07-04-2021 Tobacco smoking status Never s moked tobacco (finding) [facility] Tobacco smoking status Never [facility] Sex Assigned At Female [facility] Functional Status Date Assessment Result Facility 12-20-2022 Functional Status No [facility] 12-20-2022 Functional Status [facility] 12-19-2022 Functional Status N/A [facility] 12-17-2022 Functional Status N/A [facility] 11-02-2022 Functional Status N/A [facility] 11-01-2022 Functional Status [facility] Clinical Notes 07-11-2021 to 01-30-2023 Note Date & Type Note Facility 01-30-2023 Hospital Discharg e instructions Follow Up Care 01/30/2023 15:16:04 With:Senthil Caldera Address: [facility] [address] [place] [phone] Fax Business (1) When: Unknown Comments:f/u in 6 wks. pet/ct in [facility] soon. f/u after. cbc, cmp, iron studies, b12, foalte, epo, bo1263 prior to f/u. [facility] 12-23-2022 Evaluation + Plan note Extrac yajaira from: Title:Discharge Note Author:Zaheer Sloan DO Date:12/23/22 Discharge To, Anticipated II - Retirement Unit Transported by, Anticipated - Wheelchair van [...] When Contact Information Azar HANKS, Rickey Lynn, [address] [place] [address]- Additional Instructions: Antibiotic Medicine, Adult, Oomw-rd-Dzeu Extracted from: Title:APSO Note Author:Zaheer Sloan DO [...] unspecified) Continue statin Orders: Patient Specific Meds, Kisqali, Normal Patient Dose, Each, Oral, Daily, NOW, [...] Ordered: Initial Hospital Care/Day Moderate 55 Minutes 68503 Sbsq Hospital Care/Day Straight Fwd 25 Minutes 45495 2. Age-related cognitive decline (R41.81: Age-related cognitive decline) PT/OT Monitor labs IV fluids Likely will need placement as it was already attempted by nurse at Dr. Askew's office 3. History of breast cancer (Z85.3: Personal history of malignant neoplasm of breast) [facility] Patient follows with Dr. Hernandez as outpatient [...] = na DAP = na Signed By: Zaheer Arriaga M.D. 1. 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 Age-related cognitive decline (R41.81: Age-related cognitive [...] Panel 10/25/22 * Comprehensive Metabolic Panel 11/22/22 [facility]09-03-2023 [facility]Result Comment: Electronically Signed By: Zaheer Sloan DO.johnnie\Date and Time Signed: 12/23/22 09:49 [id number] Hospital Discharge instructions Patient Education 12/23/2022 09:48:15 Antibiotic Medicine, Adult, Ceqa-ep-Cgln Antibiotic Medicine, Adult Antibiotic medicines treat infections [...] medicine. Follow these instructions at home: Take uymk-evz-tlajxjo and prescription medicines as told by your [...] provider. Document Revised: 01/26/2020 Document Reviewed: 01/26/2020 [employer] Patient Education 2022 sharing.it. Follow Up Care 12/20/2022 15:04:36 With:Azar HANKS, Rickey Lynn [facility] Address: [address] [place] [address] When: Unknown [facility]08-31-2023 NoteFishJohns Hopkins Bayview Medical CenterComment on above:Result Comment: Electronically Signed By: Nathalia LUDWIG, Zaheer Song.br\Date and Time Signed: 12/20/22 19:18 [id number] Evaluation + Plan note Extracted from: Title:ED Note Author:Ran HANKS, David Date: 1. Generalized weakness (R53 .1: Weakness) 2. Frequent falls (R29.6: Repeated falls) 3. Anemia (D64.9: Anemia, unspecified) 4. Dehydration (E86.0: Dehydration) 5. Urinary tract infection (N39.0: Urinary tract infection, site not specified) Orders: cephalexin, 500 mg = 1 cap(s), Oral, QID, X 7 day(s), # 28 cap(s), Refills(s) 0, Pharmacy: [facility], 167.6, cm, 12/19/22 20:43:00 EDT, Height/Length [...] Panel 10/25/22 * Comprehensive Metabolic Panel 11/22/22 [facility]08-31-2023 Hospital Discharge instructions Patient Education 12/20/2022 00:37:19 Urinary Tract Infection, Adult, Nlvu-ob-Ptpy Urinary Tract Infection, Adult A urinary tract [...] Follow these instructions at home: Medicines Take lxnt-gwp-dszmqyo and prescription medicines only as told by [...] provider. Document Revised: 11/18/2020 Document Reviewed: 11/18/2020 [employer] Patient Education 2022 sharing.it. 12/20/2022 00:37:19 Anemia Anemia Anemia is a [...] spleen. Follow these instructions at home: Take ndso-asd-qvopgpq and prescription medicines only as told by [...] provider. Document Revised: 02/20/2022 Document Reviewed: 03/15/2020 [employer] Patient Education 2022 sharing.it. 12/20/2022 00:37:19 Dehydration, Adult, Mmyw-zi-Pjgr Dehydration, Adult Dehydration is condition in which [...] of fat or sugar. General instructions Take nbwx-scr-pvfxsra and prescription medicines only as told by [...] start slowly drinking other clear fluids. Take joyg-jnn-zesmtww and prescription medicines only as told by your doctor. Get help right away if you have any symptoms of very bad dehydration. This information is not intended to replace advice given to you by your health care provider. Make sure you discuss any questions you have with your health care provider. Document Revised: 11/19/2019 Document Reviewed: 11/19/2019 [employer] Patient Education 2022 sharing.it. Follow Up Care 12/19/2022 20:39:35 With:Rickey Askew Address: [place] [address] Business (1) When:12/21/[address]22 [facility]08-28-2023 Hospital Discharge instructions Patient Education 12/17/2022 [...] Follow these instructions at home: Medicines Take zuml-pat-yarlhjg and prescription medicines only as told by [...] as fried or sweet foods. ?Take an qayk-ymb-klxorsq or prescription medicine for constipation. If you [...] provider. Document Revised: 02/05/2022 Document Reviewed: 02/05/2022 [employer] Patient Education 2022 sharing.it. Follow Up Care 12/17/2022 10:20:15 With:JOSÉ ANTONIO VARGAS Address: [address] [place] [phone] Business (1) When:12/20/2022 12:53:13 With:Gavino Erickson Address: [address] [place] [address] Business (1) When:12/20/2022 12:52:03 With:Rickey Askew Address: [address] [place] [address] Business (1) When:12/20/2022 12:51:59 [facility]08-28-2023 Evaluation + Plan noteExtracted from: Title:ED Note Author:Gui Scruggs PA-C te:12/17/22 Fall (W19.XXXA: Unspecified fall, initial encounter) Lumbar compression fracture (S32.000A: Wedge compression fracture of unspecified lumbar vertebra, initial encounter for closed fracture) Ordered: oxycodone, 5 mg = 1 tab(s), Oral, q6hr, X 3 day(s), # 15 tab(s), Refills(s) 0, Pharmacy: [facility], 168, cm, 12/17/22 10:29:00 EDT, Height/Length [...] Panel 10/25/22 * Comprehensive Metabolic Panel 11/22/22 [facility]07-16-2023 NoteFishJohns Hopkins Bayview Medical CenterComment on above:Result Comment: Electronically Signed By: Trevor HANKS, Wyatt\.br\Date and Time Signed: 11/04/22 12:37 [id number] Hospital Discharge instructions Patient Education 11/04/2022 12:28:31 [...] Consider working with a physical therapist or strainer cleaner who can develop an exercise plan to help you gain muscle strength. General instructions Take pmdz-all-mjhucph and prescription medicines only as told by [...] provider. Document Revised: 03/11/2022 Document Reviewed: 03/11/2022 [employer] Patient Education 2022 sharing.it. Follow Up Care 11/01/2022 19:54:24 With:Hollis MERRILL Address: [address] [phone]- Business (1) When: Unknown Comments:Urinary retnetion w/spencer With:Gavino Erickson Address: [address] [place] [address] Business (1) When: Unknown Comments:Call for followup appointment in 4 weeks for repeat pelvis xray With:Rickey Askew Address: [employer] [address] Business (1) When: Unknown [facility]07-16-2023 Evaluation + Plan noteExtracted from: Title:Discharge Note Author:Trevor HANKS, Wyatt Lynn ate:11/04/22 Stable Discharge To, Anticipated II - Retirement Unit Discharged to - [facility] unit Discharge Diet(s): Regular (11/02/22 15:25:00) Prescriptions anastrozole 1 mg Tab, 1 mg= 1 tab(s), Oral, Daily, 11 refills Arimidex 1 mg Tab, 1 mg= 1 tab(s), Oral, Daily, 3 refills ergocalciferol 50,000 intl units Cap, 48410 International_Unit= 1 cap(s), Oral, q7day Kisqali (200 [...] bedtime) With When Contact Information Gavino Erickson [address] [place] [address] Business (1) Additional Instructions: Call for followup appointment in 4 weeks for repeat pelvis xray Rickey Askew In 0 days [address] [place] [address] [facility] (1) Additional Instructions: Addendum by Trevor HANKS, [facility] ad on November 04, 2022 12:36:52 EDT [...] deep vein thrombosis (DVT) prophylaxis (Z79.899: Other termination clerk (current) drug therapy) SCD, enoxaparin Orders: acetaminophen, [...] Panel 10/25/22 * Comprehensive Metabolic Panel 11/22/22 [facility]07-14-2023 NotePT Evaluation done this date. Pt. with 12/13 on AM-PAC this date. She is very resistant to movement due to pain. She is unable to stand even with attempts of max A. [facility] NoteMemorial Health SystemComment on above: Result Comment: Electronically Signed By: Mariia LOPEZ DO\Date and Time Signed: 11/02/22 01:35 [id number] Hospital Discharge instructions Follow Up Care 09/27/2022 14:06:46 With:Senthil Caldera Address: [address] [phone] Fax Business (1) When: Unknown Comments:f/u in 3 months. pet/ct prior to f/u. cont arimidex and kisquali. cbc, cmp and ei15[address] monthly[address] [facility]02-15-2023 Hospital Discharge instructions Follow Up Care 06/06/2022 13:40:28 With:Senthil Caldera Address: [address] [phone] Fax Business (1) When: Unknown Comments:cbc, cmp, qv5170 in 4 weeks and prior to f/u in 8 weeks. f/u with preparing box tender. iron studies, b12, folate with next labs. [facility]12-07-2022 Hospital Discharge instructions Follow Up Care 03/28/2022 14:49:31 With:Senthil Caldera Address: [address] [phone] Fax Business (1) When: Unknown Comments:f/u in 2 months. pet/ct prior to f/ucbc, cmp, bq5050, every [address] [facility]09-29-2022 Hospital Discharge instructions Follow Up Care 01/18/2022 14:52:57 With:Senthil Caldera Address: [address] [phone] Fax Business (1) When: Unknown Comments:raise kisquali to 400mg for 3wks on and 1 week off. f/u with or anthony in 2 months. cbc, cmp, qg0783 prior to f/ucbc, cmp monthly onthis medicaztion cont arimidex. [facility]09-01-2022 Hospital Discharge instructions Follow Up Care 12/21/2021 14:19:38 With:Senthil Caldera Address: [address] [phone] Fax Business (1) When: Unknown Comments:continue Kisqali 200mg 3wks on, 1wk offcbc, cmp in 4wks and 8wksPET scan in Novfollow-up in 8wks with Dr. Hernandez after PET scan [facility]08-11-2022 Hospital Discharge instructions Follow Up Care 11/30/2021 13:55:25 With:Senthil Caldera Address: [address] [phone] Fax Business (1) When: Unknown Comments:re-start kisqali at 200mg daily x 3 weeks, then 1 week offcmp weekly x 4wksfollow-up with Dr. Hernandez in 4wkscbc, cmp at follow-up [facility]07-14-2022 Hospital Discharge instructions Follow Up Care 11/02/2021 12:27:30 With:Senthil Caldera Address: [address] [phone] Fax Business (1) When: Unknown Comments:cont arimidex. Hold kisquali for 3 wks, recheck cbc, cmp, prior to f/u. hold lasix. Send this note to Dr. Kofi sumner. [facility]06-16-2022 Hospital Discharge instructions Follow Up Care 10/05/2021 14:21:47 With:Senthil Caldera Address: [place] [phone] Fax Business (1) When: Unknown Comments:continue kisqalifollow-up in 1mocbc, cmp at follow-up [facility]05-19-2022 Hospital Discharge instructions Follow Up Care 09/07/2021 13:41:37 With:Senthil Caldera Address: [facility] [place] [phone] [phone] Fax Business (1) When: Unknown Comments:continue Kisqali follow-up in 1 mocbc, cmp, si5096 at follow-up [facility]05-15-2022 Evaluation + Plan noteExtracted from: Title:ED [...] Location:FT.ONCOLOGY Appointment Type:ONC Office Visit 15 (FT) [facility]05-15-2022 Hospital Discharge instructions Patient Education 09/03/2021 [...] instructions at home: Medicines Take and apply bchs-egn-igibdvd and prescription medicines only as told by [...] what causes your hives. Take and apply afwa-thb-gbwqpyv and prescription medicines only as told by your health care provider. Keep all follow-up visits as told by your health care provider. This is important. This information is not intended to replace advice given to you by your health care provider. Make sure you discuss any questions you have with your health care provider. Document Released: 04/08/2006 Document Revised: 10/22/2018 Document Reviewed: 10/22/2018 [employer] Patient Education 2020 sharing.it. Follow Up Care 09/03/2021 00:14:38 With:Rickey Askew Address: [address] [place], [place] [phone]- Business (1) When:Within 3 Day(s) [facility]04-21-2022 Hospital Discharge instructions Follow Up Care 08/10/2021 13:38:09 With:Nohemi Radha Address: [place] [address]- [phone] Business (1) When: Unknown Comments:f/u 1 monthcont kisquali.cbc, cmp, ea4462 at f/u. With:Senthil Caldera Address: [address] [phone] Fax Business (1) When: Unknown [facility]04-05-2022 Hospital Discharge instructions Follow Up Care 07/25/2021 15:46:11 With:Senthli Caldera Address: [place] [phone] Fax Business (1) When: Unknown Comments:f/u in 2 wks, cbc, cmp, fs5854 at f/u. [facility]03-22-2022 Hospital Discharge instructions Follow Up Care 07/11/2021 14:05:16 With:Senthil Caldera Address: [place] [phone] Fax Business (1) When: Unknown Comments:echo and bailee carballoi will call Dr. Tabor. f/u with me in 2 wks plan AC. Cbc, cmp, ceapet/ct prior to f/u. [facility] Future Appointments Appointment Date:07/18/2021 12:00:00 PM Scheduled Provider:Senthil Caldera DO Location:FT.ONCOLOGY Appointment Type:ONC Office Visit New 45 (FT) [facility] [place] Evaluation + Plan note Future Appointments Appointment Date:08/08/2021 10:00:00 AM Scheduled Provider: [facility] Type:US Breast (FT) Appointment Date:08/09/2021 10:30:00 AM Scheduled Provider: Location:[facility] Appointment Type:Surgical PAT FT Appointment Date:08/10/2021 12:30:00 PM Scheduled Provider:Senthil Caldera DO [facility] Type:ONC Office Visit 15 (FT) Appointment Date:08/17/2021 08:00:00 AM Scheduled Provider: Location:[facility] Appointment Type:Surgery FT Appointment [...] Radiology* US Perc Biopsy Lymph Node 08/08/21 [facility] Future Appointments Appointment Date:08/10/2021 12:30:00 PM Scheduled Provider:Senthil Caldera DO [facility] Type:ONC Office Visit 15 (FT) Diagnostic Tests Pending * CA 27 29 08/07/21 Future Scheduled Tests Laboratory* CBC w/ Auto Diff 07/26/21 * CEA 07/26/21 * Comprehensive Metabolic Panel 07/26/21 [facility] Future Appointments Appointment Date:08/10/2021 12:30:00 PM Scheduled Provider:Senthil Caldera DO [facility] Type:ONC Office Visit 15 (FT) Future Scheduled Tests Laboratory* CBC w/ Auto Diff 07/26/21 * CEA 07/26/21 * Comprehensive Metabolic Panel 07/26/[facility] Future Appointments Appointment Date:09/07/2021 12:30:00 PM Scheduled Provider:Senthil Caldera DO Location:.ONCOLOGY Appointment Type:ONC Office Visit 15 (FT) Future Scheduled Tests Laboratory* CBC w/ Auto Diff 08/24/21 * CEA 08/24/21 * Comprehensive Metabolic Panel 08/24/[facility] Future Appointments Appointment Date:08/21/2021 02:00:00 PM Scheduled Provider: Location:FT.ONCOLOGY Appointment Type:ONC Patient Education - 1hr (FT) Appointment Date:09/07/2021 12:30:00 PM Scheduled Provider:Senthil Caldera DO Location:.ONCOLOGY Appointment Type:ONC Office Visit 15 (FT) Future Scheduled Tests Laboratory* CBC w/ Auto Diff 09/07/21 * CEA 09/07/21 * Comprehensive Metabolic Panel 09/07/[facility] Future Appointments Appointment Date:09/07/2021 12:30:00 PM Scheduled Provider:Senthil Caldera DO Location:FT.ONCOLOGY Appointment Type:ONC Office Visit 15 (FT) [facility] Future Appointments Appointment Date:10/05/2021 01:30:00 PM Scheduled Provider:Senthil Caldera DO Location:FT.ONCOLOGY Appointment Type:ONC Office Visit 15 (FT) Future Scheduled Tests Laboratory* CA 27 29 10/08/21 * CBC w/ Auto Diff 10/08/21 * Comprehensive Metabolic Panel 10/08/[facility] Future Appointments Appointment Date:10/05/2021 01:30:00 PM Scheduled Provider:Senthil Caldera DO Location:FT.ONCOLOGY Appointment Type:ONC Office Visit 15 (FT) Diagnostic Tests Pending * CA 27 29 10/02/21 [facility] Future Appointments Appointment Date:11/02/2021 01:45:00 PM Scheduled Provider:Senthil Caldera DO Location:FT.ONCOLOGY Appointment Type:ONC Office Visit 15 (FT) Future Scheduled Tests Laboratory* CA 27 29 11/02/21 * CBC w/ Auto Diff 11/02/21 * Comprehensive Metabolic Panel 11/02/21 [facility] Future Appointments Appointment Date:11/02/2021 11:15:00 AM Scheduled Provider:Nohemi Garland Location:FT.ONCOLOGY Appointment Type:ONC Office Visit 15 (FT) Diagnostic Tests Pending * CA 27 29 11/01/21 [facility] Future Appointments Appointment Date:11/30/2021 01:15:00 PM Scheduled Provider:Senthil Caldera DO Location:FT.ONCOLOGY Appointment Type:ONC Office Visit 15 (FT) Future Scheduled Tests Laboratory* CBC w/ Auto Diff 12/03/21 * Comprehensive Metabolic Panel 12/03/21 [facility] Future Appointments Appointment Date:11/30/2021 01:15:00 PM Scheduled Provider:Senthil Caldera DO Location:FT.ONCOLOGY Appointment Type:ONC Office Visit 15 (FT) [facility] Future Appointments Appointment Date:12/21/2021 01:15:00 PM Scheduled Provider:Senthil Caldera DO Location:.ONCOLOGY Appointment Type:ONC Office Visit 15 (FT) Future Scheduled Tests Laboratory* CBC w/ Auto Diff 12/21/21 * Comprehensive Metabolic Panel 12/21/21 [facility] Future Appointments Appointment [...] Panel 01/18/22 * Comprehensive Metabolic Panel 01/25/22 [facility] note Future Appointments Appointment [...] Panel 01/18/22 * [facility] Appointment [...] Panel 02/06/22 * Comprehensive Metabolic [facility] App[facility]ments Appointment Date:03/28/2022 02:15:00 PM Scheduled Provider:Senthil Caldera DO Location:[facility] Appointment Type:ONC Office Visit 15 ([facility]) Future Scheduled Tests Laboratory* CBC w/ Auto Diff 03/08/22 * CBC w/ Auto Diff 04/05/22 * Comprehensive Metabolic Panel 03/08/22 * Comprehensive Met[facility] Future App[facility]ments Appointment Date:06/06/2022 01:15:00 PM Scheduled Provider:Senthil Caldera DO Location:[facility] Appointment Type:ONC Office Visit 15 ([facility] Future Appointments Appointment Date:08/01/2022 02:00:00 PM Scheduled Provider:Senthil Caldera DO Location:[facility] Appointment Type:ONC Office Visit 15 (FT) Future Scheduled Tests Laboratory* CBC w/ Auto Diff 06/06/22 * Comprehensive Metabolic [facility] 06[facility]06/[facility] Future Appointments Appointment Date:08/01/2022 02:00:00 PM Scheduled Provider:Senthil Caldera DO Location:[facility] Appointment Type:ONC Office Visit 15 (FT) Diagnostic Tests Pending * CA 27 29 07/09/22 Future Scheduled Tests Laboratory* CA 27 29 07/31/22 * CBC w/ Auto Diff 07/31/22 * Comprehensive Metabolic [facility]31/[facility] App[facility]ments Appointment Date:08/01/2022 02:00:00 PM Scheduled Provider:Senthil Caldera DO Location:[facility] Appointment Type:ONC Office Visit 15 (FT) Diagnostic Tests Pending * CA 27 29 07[facility]30/[facility] Future Appointments Appointment Date:09/27/2022 01:45:00 PM Scheduled Provider:Nohemi Garland Location:.ONCOLOGY Appointment Type:ONC Office Visit 30 (FT) Future [...] Transferrin 08/29/22 * Vitamin B12 Level [facility]29/[facility] App[facility]ments Appointment Date:09/27/2022 01:45:00 PM Scheduled Provider:Nohemi Garland Location:.ONCOLOGY Appointment Type:ONC Office Visit 30 (FT) Diagnostic Tests Pending * CA 27 29 09/25/[facility] Future Appointments Appointment Date:11/22/2022 02:15:00 PM Scheduled Provider:Senthil Caldera DO Location:.ONCOLOGY Appointment Type:ONC Office Visit 15 (FT) Future Scheduled Tests Laboratory* CA 27 29 10/25/22 * CA 27 29 11/22/22 * CBC w/ Auto Diff 10/25/22 * CBC w/ Auto Diff 11/22/22 * Comprehensive Metabolic Panel 10/25/22 * Comprehensive Metabolic [facility] Future Appointments Appointment Date:12/26/2022 02:45:00 PM Scheduled Provider:Senthil Caldera DO Location:[facility] Appointment Type:ONC Office Visit 15 (FT) Future Scheduled Tests Laboratory* CA 27 29 10/25/22 * CA 27 29 11/22/22 * CBC w/ Auto Diff 10/25/22 * CBC w/ Auto Diff 11/22/22 * Comprehensive Metabolic Panel 10/25/22 * Comprehensive Metabolic Panel 11/22/22 [facility] Evaluation + Plan note Future Appointments Appointment [...] Panel 04/01/23 * Comprehensive Metabolic [facility] 05[facility]02/[facility] Future Appointments Appointment Date:06/12/2023 10:30:00 AM Scheduled Provider:Senthil Caldera DO Location:[facility] Appointment Type:ONC Office Visit 30 (FT) Diagnostic Tests Pending * CBC w/ Auto Diff 05/01/23 * Comprehensive Metabolic Panel 05/01/23 * Ferritin 05/01/23 * Iron Level 05/01/23 * Iron Percent Saturation 05/01/23 * Transferrin 05/01/23 * Vitamin B12 Level 05/01/23 * Folate Level 05/01/23 * Erythropoietin Level 05/01/23 * CA 27 29 05/01/23 Future Scheduled Tests Laboratory* CA 27 29 03/02/23 * CA 27 29 04/01/23 * CA 27 29 05/02/23 * CBC w/ Auto Diff 03/02/23 * CBC w/ Auto Diff 04/01/23 * CBC w/ Auto Diff 05/02/23 * Comprehensive Metabolic Panel 03/02/23 * Comprehensive Metabolic Panel 04/01/23 * Comprehensive Metabolic [facility]/02/[facility] N[facility] No data available for this section [facility] [employer] [facility] Discharge instructions No data available for this section [facility] [employer] Progress note No data available for this section [facility] Summary Purpose Family History No Family History Records Found No data available for this section No data available for this section No Family History Records Found Advance Directives No Advanced Directives Records FoundNo Advanced Directives Records Found Additional Source Comments INFORMATION SOURCE (unrecogn ized section and content) DATE CREATED AUTHOR 09/08/2021 [facility] DATE CREATED AUTHOR AUTHOR'S ORGANIZ ATION 05/21/2023 Choco Doe [facility] Care Team (unrecognized sect ion and content) Personnel Name: Rickey Askew MD Address: [address] [place] [address] Personnel Name: Rickey Askew MD Address: [address] [place] [address] Personnel Name: Rickey Askew MD Address: [address] [place] [address] Personnel Name: Rickey Askew MD Address: [address] [place] [address] Personnel Name: Rickey Askew MD Address: [address] [place] [address] Name: Eva Beard Personnel Name: Rickey Askew MD Address: [address] [place] [address] Name: Eva Beard Personnel Name: Rickey Askew MD Address: [address] [place] [address] Name: Eva Beard Personnel Name: Rickey Askew MD Address: [address] [place] [address] Name: Eva Beard Personnel Name: Rickey Askew MD Address: [address] [place] [address] Name: Eva Beard Personnel Name: Rickey Askew MD Address: Address: [address] [place] [address] Name: Eva Beard Personnel Name: Rickey Askew MD Address: Address: [address] [place] [address] Name: Eva Beard Personnel Name: Rickey Askew MD Address: Address: [address] [place] [address] Name: Eva Beard Personnel Name: Rickey Askew MD Address: Address: [address] [place] [address] Name: Eva Beard Personnel Name: Rickey Askew MD Address: Address: [address] [place] [address] Name: Eva Beard Personnel Name: Rickey Askew MD Address: Address: [address] [place] [id number]- [place] Name: Eva Beard Personnel Name: Rickey Askew MD Address: Address: [address] [place] [address]- Name: Eva Beard Personnel Name: Rickey Askew MD Address: Address: [address] [place] [address]- Name: Eva Beard Personnel Name: Rickey Askew MD Address: Address: [address] [place] [address]- Name: Eva Beard Personnel Name: Rickey Askew MD Address: Address: [address] [place] [address]- Name: Eva Beard Personnel Name: Rickey Askew MD Address: Address: [address] [place] [address]- Name: Eva Beard Personnel Name: Rickey Askew MD Address: Address: [address] [place] [address]- Name: Eva Beard Personnel Name: Rickey Askew MD Address: Address: [address] [place] [address]- Name: Eva Beard Personnel Name: Rickey Askew MD Address: Address: [address] [place] [address]- Name: Eva Beard Personnel Name: Rickey Askew MD Address: Address: [address] [place] [address]- Name: Eva Beard Personnel Name: Rickey Askew MD Address: Address: [address] [place] [id number]- [place] Name: Eva Beard Personnel Name: Rickey Askew MD Address: Address: [address] [place] [id number]- Name: Eva Beard Personnel Name: Rickey Askew MD Address: Address: [address] [place] [id number]- [place] Name: Eva Beard Personnel Name: Rickey Askew MD Address: Address: [address] [place] [address]- Name: Eva Beard FOR RECORDS PERTAINING TO [...] BE BASED ON THE PRIMARY CLINICAL RECORDS. [facility]. provides no warranty or guarantee of the accuracy or completeness of information in this document.
[2023-05-24 07:56] LABS: Basophils Absolute Auto 0.1 10^3/uL (0.0-0.1); Eosinophils Absolute Auto 0.2 10^3/uL (0.0-0.7); Eosinophils Percent Auto 3.3 % (0.9-7.0); Hematocrit 28.4 % (36.0-48.0); Hemoglobin 9.2 g/dL (12.0-16.0); Immature Granulocytes Abs Auto 0.02 10^3/uL (0.00-0.03); Immature Granulocytes Pct Auto 0.4 % (0.0-0.5); Lymphocytes Percent Auto 43.8 % (20.5-60.0); Mean Corpuscular HGB Conc 32.4 g/dL (29.9-35.2); Mean Corpuscular Hemoglobin 33.5 pg (26.7-34.0); Mean Corpuscular Volume 103.3 fL (81.0-99.0); Monocytes Absolute Auto 0.3 10^3/uL (0.3-0.8); Monocytes Percent Auto 6.9 % (1.7-12.0); Neutrophils Percent Auto 43.6 % (43.0-75.0); Platelet Count 226 10^3/uL (150-450); Red Blood Count 2.75 10^6/uL (4.20-5.40); Red Cell Distribution Width 13.2 % (11.0-15.0); White Blood Count 4.5 10^3/uL (4.0-11.0)
[2023-05-24 08:18] LABS: Alanine Aminotransferase 34 U/L (14-59); Albumin Globulin Ratio 0.7; Albumin Level 2.5 g/dL (3.4-5.0); Alkaline Phosphatase 102 U/L (46-116); Anion Gap 11.2; Aspartate Amino Transferase 20 U/L (15-37); BUN Creatinine Ratio 27.7; Bilirubin Total 0.2 mg/dL (0.2-1.0); Calcium 8.6 mg/dL (8.5-10.1); Carbon Dioxide 25.2 mmol/L (21.0-32.0); Chloride 110 mmol/L (98-107); Estimated GFR (African America 58 (>=60); Estimated GFR (Non-African Ame 48 (>=60); Globulin 3.4 g/dL; Glucose 115 mg/dL (74-106); Potassium 4.4 mmol/L (3.5-5.1); Sodium 142 mmol/L (136-145); Total Protein 5.9 g/dL (6.4-8.2)
[2023-05-27 16:09] LABS: Erythropoietin (EPO), Serum 27.7 mIU/mL (2.6-18.5)
== END 2023-05-24 01:47 | disposition home or self-care (01) ==
LOC: LAB 01:46
PROVIDERS: PCP Family Medicine; Visit Provider Family Medicine
DX: Z85.3 Personal history of malignant neoplasm of breast (principal)
CPT/HCPCS: 36415; 80053; 82607; 82668; 82746; 83540; 85025

== ENCOUNTER 2023-06-05 01:52 | Outpatient (REF) | payer OTHER, SELFPAY ==
--- OUTSIDE RECORDS SUMMARY | 2023-06-05 01:56 | XMS_ITS | CCD ---
Author Name Unknown Address [address] [place] [address] [facility] Care Team Providers Care Rn Acls Name Role Phone Rickey Askew Primary Care Physician [phone] Eva Beard Unavailable Unavailable Mgowicz, Senthil Attending Unavailable Adamowicz, Senthil Referring Unavailable Adamowicz, DO Senthil Admitting Unavailabl e Laishaicz, Senthil Attending Unavailable Adamowicz, Senthil Admitting Unavailable Adamowicz, Senthil Attending Unavailable Adamowicz, Senthil Admitting Unavailable Adamowicz, Senthil Attending Unavailable Sammy QUEZADA Attending Unavailable Adamowicz, Senthil Attending Unavailable Adamowicz, [...] T Consulting Unavailable Lorie Slater Attending Unavailable Sammy QUEZADA Attending Unavailable Sammy QUEZADA Attending Unavailable Pedro Nava Attending Unavailable Jeffery Murphy Attending Unavailable David Tong Attending Unavailable Nohemi Garcia Attending Unavailable Adamowicz, Senthil Attending Unavailable Adamowicz, Senthil Attending Unavailable Mgowflaquito, Senthil Attending Unavailable Verenice, Senthil Admitting Unavailable Rickey Askew MD Unavailable Rickey Askew MD Primary Care Provider [phone] DO Senthil Caldera II Attending Provider [phone] MD Mary Rodriguez Primary Care Provider Mary Rodriguez Primary Care Unavailable Senthil Caldera II Attending Unavaila ble Senthil Caldera II Admitting Unavaila ble Allergies Allergy Classification Reported Allergen(s) Allergy Type Date of Onset Reaction(s) Facility (20 sources) Bee/Wasp/Ant venom; Translations: [Bee Stings] Drug allergy Dyspnea (finding) [facility] (20 sources) Penicillins; Translations: [penicillins] Drug allergy 2 Dyspnea (finding), Shortness of breath, Unknown [facility] (20 sources) Sulfonamides (Antibiotic); Translations: [sulfa drugs] Drug allergy Dyspnea (finding) [facility] (2 sources) Penicillin G Drug Allergy 2 [facility] (2 sources) Sulfonamides (Antibiotic) Drug Allergy 3 Shortness of breath [facility] Medications Current Medications Medication Drug Class(es) Dates [...] day(s), # 28 cap(s), Refills(s) 0, Pharmacy: [facility], 167.6, cm, 12/19/22 20:43:00 EDT, Height/Length Dosing, 87.1, kg, 12/19/22 20:43:00 EDT, Weight Dosing Start Date: 12/19/22 Stop Date: 12/26/22 Status: Ordered cholecalciferol 0.05 mg oral tablet (2 sources) Vitamin D Start: 12-14-2022 take 1 tablet by mouth in the morning cholecalciferol (Vitamin D-3) 50 MCG (2000 UT) tablet Take 2,000 Units by mouth in the morning. 0 12/14/2022 Active Cinnamon Preparation (19 sources) Non-Standardized Food Allergenic [...] Nausea, # 30 tab(s), Refills(s) 3, Pharmacy: [facility], 162.5, cm, 08/10/21 12:38:00 EDT, Height/Length Dosing, 96.5, kg, 08/10/21 12:38:00 EDT, Weight Dosing Start Date: 08/24/21 Status: Ordered oxyCODONE hydrochloride 5 mg oral tablet (3 sources) Opioid Agonist Start: 12-17-2022 End: 12-20-2022 take 1 tablet by mouth every six hours as needed for pain oxyCODONE (Roxicodone) 5 MG immediate release tablet Take 5 mg by mouth every 6 (six) hours if needed for severe pain. 0 12/17/2022 Active Miralax (1 source) Osmotic Laxative Start: 05-01-2023 take 17 g by mouth once daily MiraLax 17 gm, Oral, Daily, Refill(s) 0 Start Date: 05/01/23 Status: Ordered ribociclib 200 mg oral tablet (20 sources) Start: 05-09-2022 ribociclib 200 mg dose (Kisqali, 200 MG Dose,) tablet chemo therapy pack See Instructions, 2 tab(s) take for 21 days, withhold for 7 days, then repeat cycle. 11 REFILLS, # 42 tab(s), Refills(s) 1, called to pharmacy (Rx) 0 05/09/2022 Active Start: 03-29-2022 Ardensqali (400 m g daily dose) oral tablet [...] Refills(s) 0 Start Date: 05/01/23 Status: Ordered vitamin b12 1 mg oral tablet (2 sources) Vitamin B12 Start: 09-27-2022 take 1 tablet by mouth in the morning cyanocobalamin (Vitamin B-12) 1000 MCG tablet Take 1,000 mcg by mouth in the morning. 0 09/27/2022 Active Vitamin B12 1000 mcg Tab (10 sources) Start: 09-27-2022 take 1 tablet by mouth once daily Vitamin B12 1000 mcg Tab 1,000 mcg = 1 tab(s), Oral, Daily, # 30 tab(s), Refills(s) 11, Pharmacy: [facility], 162, cm, 09/08/22 15:14:00 EDT, Height/Length Dosing, 96.4, kg, 09/27/22 13:43:00 EDT, Weight Dosing Start Date: 09/27/22 Status: Ordered Vitamin D3 2000 intl units oral tablet (7 sources) Start: 12-14-2022 take 1 tablet by mouth once daily Vitamin D3 2000 intl units oral tablet 50 mcg = 1 tab(s), Oral, Daily, # 90 tab(s), Refills(s) 4, Pharmacy: [facility], 167, cm, 11/01/22 20:02:00 EDT, Height/Length [...] daily, # 7 cap(s), Refills(s) 0, Pharmacy: [facility], 167, cm, 11/01/22 20:02:00 EDT, Height/Length Dosing, 90.3, kg, 11/01/22 20:02:00 EDT, Weight Dosing Start Date: 11/04/22 Status: Ordered Start: 11-04-2022 ergocalciferol 50,000 intl units Cap 50,000 International_Unit = 1 cap(s), Oral, q7day, # 7 cap(s), Refills(s) 0, Pharmacy: [facility], 167, cm, 11/01/22 20:02:00 EDT, Height/Length [...] Active Problems Problem Classification Problem Date Documented Da te Episodic/Chronic Allergic reactions (1 source) Urticaria; Translations: [Other urticaria] Onset: 09-03-2021 Episodic Cancer of breast (20 sources) Malignant neoplasm of upper-outer quadrant of right female breast; Translations: [Malignant neoplasm of upper-outer quadrant of female breast] Onset: 07-11-2021 Chronic Cancer of breast (11 sources) Personal history of malignant neoplasm of breast; Translations: [History of malignant neoplasm of breast] Onset: 11-02-2022 Episodic Cancer of colon (3 sources) Malignant tumor of colon; Translations: [Malignant neoplasm of colon, unspecified] Onset: 10-24-2022 Chronic Deficiency and other anemia (1 source) Anemia; Translations: [Anemia, unspecified] Onset: 12-19-2022 Episodic Delirium, dementia, and amnestic and other cognitive disorders (9 sources) Age-related cognitive decline; Translations: [Age-related cognitive decline] Onset: 12-14-2022 Chronic Diabetes mellitus without complication (20 sources) Diabetes mellitus; Translations: [Type 2 diabetes mellitus without complication] Onset: 03-10-2015 07-03-2021 Chronic Disorders of lipid metabolism (20 sources) Hypercholesterolemi a; Translations: [Pure hypercholesterolemi a] Onset: 06-12-2021 07-03-2021 Chronic E Codes: Fall (1 source) Fall; Translations: [Unspecified fall, initial encounter] Onset: 12-17-2022 Episodic Essential hypertension (20 sources) Hypertensive disorder; Translations: [Essential hypertension] Onset: 03-19-2015 07-03-2021 Chronic Fluid and electrolyte disorders (1 source) Dehydration; Translations: [Dehydration] Onset: 12-19-2022 Episodic Malaise and fatigue (2 sources) Asthenia; Translations: [Weakness] Onset: 11-02-2022 Episodic Nutritional deficiencies (10 sources) Vitamin D deficiency; Translations: [Vitamin D deficiency, unspecified] Onset: 11-06-2022 Chronic Other aftercare (1 source) Long-term current use of drug therapy; Translations: [Other grain elevator agent (current) drug therapy] Onset: 11-02-2022 Episodic Other [...] (20 sources) Body mass index 30+ - obesity; Translations: [Body mass index (BMI) 36.0-36.9, adult] Onset: 10-24-2022 07-04-2021 Chronic Other nutritional; endocrine; and metabolic disorders (2 sources) Obese class I; Translations: [Obesity, unspecified] Onset: 09-13-2021 10-24-2022 Chronic Other nutritional; endocrine; and metabolic disorders (2 sources) Obesity; Translations: [Obesity, unspecified] Onset: 10-24-2022 10-24-2022 Chronic Pathological fracture (10 sources) H/O: fragility fracture; Translations: [Personal history of (healed) osteoporosis fracture] Onset: 11-06-2022 Episodic Secondary malignancies (1 source) Secondary malignant neoplasm of bone; Translations: [Secondary malignant neoplasm of bone] Onset: 01-30-2023 Chronic Past or Other Problems Problem Classification Problem Date Documented Da te Episodic/Chronic Lymphadenitis (20 sources) Axillary lymphadenopathy; Translations: [Localized enlarged lymph nodes] Onset: 10-24-2022 07-25-2021 Episodic Mood disorders (2 sources) Mood disorders Onset: 10-24-2022 10-24-2022 Mycoses (2 sources) Onychomycosis; Translations: [Tinea unguium] Onset: 09-19-2022 09-19-2022 Episodic Nonmalignant breast conditions (20 sources) Lump of upper outer quadrant of breast; Translations: [Lump in upper outer quadrant of right breast] Onset: 10-24-2022 07-04-2021 Episodic Other connective tissue disease (2 sources) Pain of toe of left foot; Translations: [Pain in left toe(s)] Onset: 09-19-2022 09-19-2022 Episodic Other connective tissue disease (2 sources) Pain of toe of right foot; Translations: [Pain in right toe(s)] Onset: 09-19-2022 09-19-2022 Episodic Residual codes; unclassified (20 sources) Edema; Translations: [Edema, unspecified] Onset: 03-19-2015 07-03-2021 Episodic Residual codes; unclassified (2 sources) H/O: high risk medication; Translations: [Personal history of other drug therapy] Onset: 03-19-2015 10-24-2022 Episodic Urinary tract infections (3 sources) Urinary tract infectious disease; Translations: [Urinary tract infection, site not specified] Onset: 12-19-2022 Episodic Results Test Name Value Interpretation Reference Range Facility GLUCOSE POCT GLUCOMETERSon 0 05-31-2023 Glucose [Mass/Vol] 110 mg/dL [facility] Comment on above: Random Glucose Refer ence Range is dependent on time and content of last meal. Glucose of more than 200 mg/dL in a nonstressed, ambulatory subject supports the diagnosis of Diabetes Mellitus. [facility] Glucose Glucometer (BldC) [M ass/Vol]Ordered By: Senthil Caldera on 05-31-2023 Glucose [Mass/Vol] 110 mg/dL [facility] Comment on above: Random Glucose Refer ence Range is dependent on time and content of last meal. Glucose of more than 200 mg/dL in a nonstressed, ambulatory subject supports the diagnosis of Diabetes Mellitus. Glucose Poct Glucometerson 0 05-31-2023 Glucose [Mass/Vol] 110 mg/dL Normal [facility] Comment on above: Result Comment: [place] Glucose Reference Range is dependent on time and content of last meal. Glucose of more than 200 mg/dL in a nonstressed, ambulatory subject supports the diagnosis of Diabetes Mellitus. PERFORMED BY: [place] [address] PATHOLOGIST ORTHOTICS ASSISTANT JERICA JO M.D. Performed By: #### G LUALEXANDER #### Point of Care testing , PET tumor subq tx strat sb-m ton 05-31-2023 PET tumor subq tx strat sb-mt [facility] [address] Nuclear Medicine Report Signed Patient: Florina Staley MR#: [id number] 65 : 1950 Acct:[id number] Age/Sex: 72 / F ADM Date: 05/31/23 Loc: Room: Type: [facility] Attending Dr: Senthil Caldera II DO Copies to: Senthil J AdamLINK del valle DO Ward, Jeffrey S DO Ordering Provider: Senthil Caldera II, DO Date of Service: 05/31/23 PET/PET tumor subq tx strat sb-mt: Breast CA PET/CT FUSION IMAGING CLINICAL INFORMATION: RIGHT breast cancer COMPARISON : PET/CT imaging 07/25/22 TECHNIQUE: Noncontrasted CT scan from the base of the skull to the upper thigh followed by PET imaging. Multiplanar PET/CT fusion images. The blood sugar is 110mg/dL. The F-18 FDG amount is 12.45mCi. FINDINGS: ORAL CAVITY: HYPERMETABOLISM: Physiologic hypermetabolism of the oral cavity is present. Although distribution may be career services representative of asymmetric physiologic uptake, if there is a continued clinical concern for hypermetabolic uptake secondary to malignancy, direct visualization recommended. ANTERIOR TWO THIRDS OF THE TONGUE: Unremarkable ROOF OF THE MOUTH: Unremarkable BUCCAL CAVITY: Unremarkable FLOOR OF THE MOUTH: Unremarkable DENTITION: Unremarkable TONSILS: Unremarkable PHARYNX: HYPERMETABOLISM: Physiologic uptake of the pharynx identified. Physiologic uptake can be asymmetrical. If there is continued clinical concern for a malignancy, direct visualization recommended. NASOPHARYNX: Unremarkable OROPHARYNX: Unremarkable TONGUE BASE: Unremarkable HYPOPHARYNX: Unremarkable EPIGLOTTIS: The epiglottis is normal. LARYNX: HYPERMETABOLISM: Physiologic uptake identified within the region of the larynx. This can be related to muscular activity. This may also be asymmetrical. There is continued clinical concern for malignancy, then direct visualization recommended. FALSE CORD: Unremarkable VESTIBULE: Unremarkable TRUE CORD: Unremarkable THYROID CARTILAGE: Unremarkable CRICOID CARTILAGE: Unremarkable NECK SPACES: HYPERMETABOLISM: There may be presence of mild hypermetabolism identified in the neck musculature which may be related to muscular activity. Some asymmetry may be present. Regions of concern which malignancy cannot be excluded are mentioned below. VISCERAL SPACE: Unremarkable CAROTID SPACE: Unremarkable RETROPHARYNGEAL SPACE: Hypermetabolic uptake of the posterior pharyngeal muscles. Consider muscular activity.: POSTERIOR CERVICAL SPACE: Unremarkable PREVERTEBRAL SPACE: Unremarkable CAROTID CIRCULATION AND JUGULAR VEINS No vascular abnormality identified. ADENOPATHY: HYPOMETABOLISM: Hypermetabolic supraclavicular adenopathy. Additional superior mediastinal hypermetabolic lymphadenopathy. The maximal SUV value of 5.0. . SALIVARY GLANDS: HYPERMETABOLISM: There is appropriate hypermetabolism involving the salivary glands. There is no worrisome disproportionate uptake identified. There is no worrisome focal uptake identified. PAROTID GLANDS: Unremarkable SUBMANDIBULAR GLANDS: Unremarkable SUBLINGUAL GLANDS: Unremarkable THYROID GLAND: HYPERMETABOLISM: Enlarged thyroid gland redemonstrated. Substernal extension on the LEFT present. No thyroid nodule identified. No developing abnormal hypermetabolism. AIRWAY: Central airway is patent. ESOPHAGUS: Esophagus normal course and caliber. HEART: Heart is not enlarged. Normal FDG uptake identified. PERICARDIAL EFFUSION: None CORONARY ARTERY CALCIFICATION: None MEDIASTINUM: Hypermetabolic superior mediastinal adenopathy. The maximal SUV value of 5.0. Hiatal hernia redemonstrated. HILAR REGION: No hilar mass or adenopathy is seen. There is mild hypermetabolism of hilar lymph nodes. The maximal SUV value is less than 2.0 favoring benign etiology. THORACIC AORTA: No thoracic aortic aneurysm or dissection. No atherosclerosis LUNG INTERSTITIUM: No infiltrate or congestion identified. No worrisome regions of lung hypermetabolism identified. PLEURAL EFFUSION no pleural effusion. Mild regions of hypermetabolism of the pleura in paraspinal region. PNEUMOTHORAX: No pneumothorax seen. LUNG NODULE: No lung nodules identified. CHEST WALL: 2 regions of adjacent hypermetabolism of the RIGHT breast identified. There is interval increase of hypermetabolism measuring up to 9.6. Largest nodule measures up to 2.7 cm, increased in size from prior examination. The bony chest intact. LIVER: No hepatic mass or intrahepatic biliary ductal dilatation is identified. Normal density of the liver parenchyma identified. The uptake of FDG throughout the liver is homogeneous without worrisome findings. GALLBLADDER: No gallbladder abnormalities identified. BILE DUCTS: No biliary duct dilatation identified. SPLEEN: Normal PANCREAS: Unremarkable ADRE (more content not included)... Normal [facility] ALL CBC WITH AUTO DIFFon BASOPHILS ABSOLUTE AUTO 0.1 N [address] [facility] Basophils/100 WBC (Bld) 2.0 % 0.2 - 2.0 % [facility] Eosinophils/100 WBC (Bld) 3.3 % 0.9 - 7.0 % [facility] Erythrocyte distribution width (RBC) [Ratio] 13.2 % 11.0 - 15.0 % [facility] Hematocrit (Bld) [Volume fraction] 28.4 % Low 36.0 - 48.0 % [facility] Hemoglobin (Bld) [Mass/Vol] 9.2 g/dL Low 12.0 - 16.0 g/dL [facility] IMMATURE GRANULOCYTES ABS AUTO 0.02 [facility] Immature granulocytes/100 WBC (Bld) 0.4 % 0.0 - 0.5 % [facility] Interpretation and review of laboratory results Abnormal [facility] LYMPHOCYTES ABSOLUTE AUTO 2.0 [facility] Lymphocytes/100 WBC (Bld) 43.8 % 20.5 - 60.0 % [facility] MCH (RBC) [Entitic mass] 33.5 pg 26.7 - 34.0 pg [facility] MCHC (RBC) [Mass/Vol] 32.4 g/dL 29.9 - 35.2 g/dL [facility] MCV (RBC) [Entitic vol] 103.3 fL High 81.0 - 99.0 fL [facility] MONOCYTES ABSOLUTE AUTO 0.3 N [facility] Monocytes/100 WBC (Bld) 6.9 % 1.7 - 12.0 % [facility] NEUTROPHILS ABSOLUTE AUTO 2.0 [facility] Neutrophils/100 WBC (Bld) 43.6 % 43.0 - 75.0 % [facility] Platelet mean volume (Bld) [Entitic vol] 9.0 fL Low 9.5 - 13.5 fL [facility] TBH EO # 0.2 [facility] PLT 226 [facility] RBC 2.75 Low [facility] WBC 4.5 [facility] Insurance Correspondenceon 0 05-23-2023 Insurance Correspondence [id number]#1.00TIFF Normal [facility] Oncology Noteon 05-20-2023 Oncology Note Normal [facility] Comment on above: Result Comment: Elec tronically Signed By: Jane FARMER, Yolande Houston\.johnnie\Date and Time Signed: 05/20/23 14:48 EST Physician Orderon 05-15-2023 Physician Order [id number]#1.00TIFF Normal [facility] Comment on above: Other Comment: wrong patient Physician Orderon 05-14-2023 Physician Order [id number]#1.00TIFF Normal [facility] Outside Labson 05-02-2023 Outside Labs [id number]#1.00TIFF Normal [facility] Outside Labs [id number]#1.00TIFF Normal [facility] Physician Orderon 05-02-2023 Physician Order [id number]#1.00TIFF [facility] Physician Order [id number]#1.00TIFF [facility] Consent for Treatmenton 04-22 Consent for Treatment [id number]#1.00TIFF [facility] Oncology Noteon 05-01-2023 Oncology Note Normal [facility] Comment on above: Result Comment: Elec tronically Signed By: Magda FARMER, Annia\.br\Date and Time Signed: 05/01/23 15:05 EST Oncology Progress Noteon Oncology Progress Note Normal [facility] Outside [facility] 05-01-2023 Outside Labs [id number]#1.00TIFF [facility] ONC - Otheron 02-07-2023 ONC - Other [id number]#1.00TIFF [facility] Physician Orderon 02-05-2023 Physician Order [id number]#1.00TIFF [facility] Consent for Treatmenton 01-20 Consent for Treatment [id number]#1.00TIFF [facility] Oncology Noteon 01-30-2023 Oncology Note Normal [facility] Comment on above: Result Comment: Elec tronically Signed By: Jane FARMER, Yolande Houston\.br\Date and Time Signed: 01/30/23 17:07 EDT Oncology Progress Noteon Oncology Progress Note Normal [facility] Outside [facility] 01-29-2023 Outside Labs [id number]#1.00TIF F [facility] Outside Labs [id number]#1.00TIF F [facility] Outside [facility] 01-28-2023 Outside Labs [id number]#1.00TIFF [facility] Coding Queryon 01-16-2023 Coding Query [facility] ONC - Otheron 01-16-2023 ONC - Other [id number]#1.00CD:1 27 [facility] ONC - Otheron 01-09-2023 ONC - Other [id number]#1.00CD:1 27 [facility] Discharge Instructionson Discharge Instructions [id number]#1.00CD:1 27 [facility] Transfer Documentson 023 Transfer Documents [id number]#1.00CD:1 27 [facility] CHEMISTRYOrdered By: Lab ROP User on 12-23-2022 Glucose [Mass/Vol] 111 mg/dL High 55 - 99 mg/dL [facility] POC Subsection Comment on above: Result Comment: Navin uriostegui RN/ POC Device SN [id number] Invalid Interpretation Code [facility] POC Subsection POC User ID [id number] Invalid Interpretation Code [facility] POC Subsection POC Username JUAN HENNESSY Invalid Interpretation Code [facility] POC Subsection Capillary Glucose POCon Glucose [Mass/Vol] 111 mg/dL High 55-99 [facility] Comment on above: Result Comment: Navin BOSE Performed By: #### 2 [id number] ####[facility] [address] [place] [address] Discharge Note-Nursingon Discharge Note-Nursing Normal Fi [facility] C Urineon 12-22-2022 Bacteria identified Cx Nom (U) Normal [facility] Comment on above: Performed By: #### 2 [id number] ####[facility] [address] [place] [address] CHEMISTRYOrdered By: Lab ROP User on 12-22-2022 Glucose [Mass/Vol] 155 mg/dL High 55 - 99 mg/dL [facility] POC Subsection Comment on above: Result Comment: Naivn BOSE POC Device SN [id number] Invalid Interpretation Code FT POC Subsection POC User ID [id number] Invalid Interpretation Code [facility] POC Subsection POC Username DARRYN SANTOS Invalid Interpretation Code [facility] POC Subsection Glucose [Mass/Vol] 129 mg/dL High 55 - 99 mg/dL [facility] POC Subsection Comment on above: Result Comment: Christine donna Meter POC Device SN [id number] Invalid Interpretation Code [facility] POC Subsection POC User ID [id number] Invalid Interpretation Code [facility] POC Subsection POC Username ROOPA LIM Invalid Interpretation Code [facility] POC Subsection Capillary Glucose POCon Glucose [Mass/Vol] 155 mg/dL High 55-99 [facility] Comment on above: Result Comment: Navin BOSE Performed By: #### 2 [id number] ####[facility] [address] [place] [address] Glucose [Mass/Vol] 129 mg/dL High 55-99 [facility] Comment on above: Result Comment: Christine donna Meter Performed By: #### 2 [id number] ####[facility] [address] [place] [address] Glucose [Mass/Vol] 158 mg/dL High 55-99 [facility] Comment on above: Result Comment: Christine donna Meter Performed By: #### 2 [id number] ####[facility] [address] [place] [address] Glucose [Mass/Vol] 144 mg/dL High 55-99 [facility] Comment on above: Result Comment: Navin uriostegui RN/ Performed By: #### 2 [id number] ####[facility] [address] [place] [address] 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 Note - Attila e Manageron 12-22-2022 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 Note - Clam Shucking Machine Tender Normal [facility] Comment on above: Result Comment: Elec tronically Signed By: Enoc FARMER, Jolanta\.br\Date and Time Signed: 12/22/22 16:25 EDT Progress Note-Physicianon Progress Note-Physician Normal [facility] Comment on above: Result Comment: Elec tronically Signed By: Zaheer Sloan DO\.br\Date and Time Signed: 12/22/22 09:47 EDT Auto Diffon 12-21-2022 Basophils/100 WBC (Bld) 2.6 % High 0.0-2.0 [facility] Comment on above: Order Comment: Order Added by Discern Expert. Performed By: #### 2 970311, 0622713, 8703304, 46502419, 879887242 ####[facility] [address] [place] [address] Basophils/Leukocytes Auto (Bld) [Pure # fraction] 0.1 E9/L Normal 0.0-0.2 [facility] Comment on above: Order Comment: Order Added by Discern Expert. Performed By: #### 2 123473, 2071883, 4085568, 66546357, 716251357 ####[facility] [address] [place] [address] Eosinophils/100 WBC (Bld) 2.5 % Normal 0.0-8.0 [facility] Comment on above: Order Comment: Order Added by Discern Expert. Performed By: #### 2 144308, 8280248, 7678116, 73320481, 758754787 ####Wilhelm Nader [address] [address] Eosinophils/Leukocytes Auto (Bld) [Pure # fraction] 0.1 E9/L Normal 0.0-0.5 [facility] Comment on above: Order Comment: Order Added by Discern Expert. Performed By: #### 2 476675, 8580135, 7905805, 54641868, 137091863 ####[address] [address] Lymphocytes/100 WBC (Bld) 42.1 % Normal 14.0-50.0 [facility] Comment on above: Order Comment: Order Added by Discern Expert. Performed By: #### 2 065277, 3463087, 8441486, 33135422, 457567421 ####[address] [address] Lymphocytes/Leukocytes Auto (Bld) [Pure # fraction] 1.4 E9/L Normal 1.0-4.0 [facility] Comment on above: Order Comment: Order Added by Discern Expert. Performed By: #### 2 960407, 3995035, 7401894, 71729242, 314709272 ####[address] [address] Monocytes/100 WBC (Bld) 13.6 % Normal 4.0-14.0 [facility] Comment on above: Order Comment: Order Added by Discern Expert. Performed By: #### 2 172213, 2285850, 5549241, 23597297, 280078059 ####[address] [address] Monocytes/Leukocytes Auto (Bld) [Pure # fraction] 0.4 E9/L Normal 0.2-1.0 [facility] Comment on above: Order Comment: Order Added by Discern Expert. Performed By: #### 2 367240, 2054902, 0563238, 66636452, 150430567 ####[address] [address] Neutrophils/100 WBC (Bld) 39.2 % Normal 36.0-75.0 [facility] Comment on above: Order Comment: Order Added by Discern Expert. Performed By: #### 2 627502, 9697159, 5245578, 02205190, 883456016 ####[facility] [address] [place] [address] Neutrophils/Leukocytes Auto (Bld) [Pure # fraction] 1.3 E9/L Low 2.0-7.5 [facility] Comment on above: Order Comment: Order Added by Discern Expert. Performed By: #### 2 357104, 7795310, 3207959, 83278160, 299407098 ####[facility] [address] [place] [address] BMPon 12-21-2022 Anion gap [Moles/Vol] 11 mmol/L Normal 6-16 [facility] Comment on above: Performed By: #### 2 866348, 6025105, 1419786, 86420662, 139759677 ####[facility] [address] [place] [address] Calcium [Mass/Vol] 8.9 mg/dL Normal 8.9-11.1 [facility] Comment on above: Performed By: #### 2 861088, 0484390, 3966370, 74400992, 316406883 ####[facility] [address] [place] [address] Chloride [Moles/Vol] 112 mmol/L High 101-111 [facility] Comment on above: Performed By: #### 2 323585, 3494235, 8541230, 76886518, 011832428 ####[facility] [address] [place] [address] CO2 [Moles/Vol] 22 mmol/L Normal 21-31 [facility] Comment on above: Performed By: #### 2 574207, 6268958, 6819658, 21963078, 586067625 ####[facility] [address] [place] [address] Creatinine [Mass/Vol] 1.4 mg/dL High 0.5-1.3 [facility] Comment on above: Performed By: #### 2 241846, 3556652, 2769242, 39273947, 127761851 ####[facility] [address] [place] [address] Glucose [Mass/Vol] 102 mg/dL Normal 55-199 [facility] Comment on above: Result Comment: If t his glucose result represents a fasting glucose, interpretation should refer to the following reference range: 55-99 mg/dL Performed By: #### 2 101289, 4742450, 3725344, 13040483, 855919229 ####[facility] [address] [place] [address] Potassium [Moles/Vol] 4.0 mmol/L Normal 3.5-5.3 [facility] Comment on above: Performed By: #### 2 237573, 7158644, 2824184, 05409396, 381958467 ####[facility] [address] [place] [address] Sodium [Moles/Vol] 141 mmol/L Normal 135-145 [facility] Comment on above: Performed By: #### 2 186966, 2429437, 7361618, 98533893, 111926776 ####[facility] [address] [place] [address] Urea nitrogen [Mass/Vol] 36 mg/dL High 5-21 [facility] Comment on above: Performed By: #### 2 614067, 9999129, 1377529, 66577217, 136389041 ####[facility] [address] [place] [address] Urea nitrogen/Creatinine [Mass ratio] 26 No Units High 10-20 [facility] Comment on above: Performed By: #### 2 267241, 4646565, 9268007, 46296328, 708333144 ####[facility] [address] [place] [address] C Urineon 09-01-2023 Bacteria identified Cx Nom (U) Normal [facility] Comment on above: Performed By: #### 1 3604133, 2089432 ####[address] [address] CBC w/ Auto Diffon 3 Erythrocyte distribution width (RBC) [Ratio] 18.4 % High 10.9-14.2 [facility] Comment on above: Performed By: #### 2 248614, 6848695, 3248750, 25896811, 524124237 ####[address] [address] Hematocrit (Bld) [Volume fraction] 26.8 % Low 34.0-46.0 [facility] Comment on above: Performed By: #### 2 294310, 0036083, 5136579, 54053534, 970376609 ####[address] [address] Hemoglobin (Bld) [Mass/Vol] 9.3 g/dL Low 12.0-16.0 [facility] Comment on above: Performed By: #### 2 652498, 1295126, 0643748, 79953250, 432887291 ####[address] [address] MCH (RBC) [Entitic mass] 34.3 pg High 27.0-34.0 [facility] Comment on above: Performed By: #### 2 985543, 0908145, 2662183, 50157374, 017903547 ####[address] [address] MCHC (RBC) [Mass/Vol] 34.8 g/dL Normal 31.4-36.0 [facility] Comment on above: Performed By: #### 2 729559, 5297891, 0732401, 98212070, 204912025 ####[address] [address] MCV (RBC) [Entitic vol] 98.6 fL Normal 80.0-100.0 [facility] Comment on above: Performed By: #### 2 385554, 2073711, 9458952, 72598996, 783894710 ####[facility] [address] [place] [address] Platelet mean volume (Bld) [Entitic vol] 6.8 fL Normal 6.4-10.8 [facility] Comment on above: Performed By: #### 2 702303, 3227537, 3362995, 53634714, 294496468 ####[facility] [address] [place] [address] Platelets (Bld) [#/Vol] 201.0 E9/L Normal 150. 0-500. 0 [facility] Comment on above: Performed By: #### 2 404517, 4550504, 8965376, 06478956, 955942143 ####[address] [place] [address] RBC (Bld) [#/Vol] 2.7 E12/L Low 4.3-5.9 [facility] Comment on above: Performed By: #### 2 619748, 0668932, 7092471, 80812077, 116216170 ####[facility] [address] [place] [address] WBC corrected for nucl RBC Auto (Bld) [#/Vol] 3.3 E9/L Low 4.0-11.0 [facility] Comment on above: Performed By: #### 2 012601, 1613594, 5035708, 16417632, 535888304 ####[facility] [address] [place] [address] CHEMISTRYOrdered By: SYSTEM SYSTEM on 12-21-2022 Anion gap [Moles/Vol] 11 mmol/L Normal 6 - 16 mEq/L [facility] Remisol Calcium [Mass/Vol] 8.9 mg/dL Normal 8.9 - 11. 1 mg/dL [facility] Chloride [Moles/Vol] 112 mmol/L High 101 - 1 11 mmol/L [facility] CO2 [Moles/Vol] 22 mmol/L Normal 21 - 31 mmol/L [facility] Remisol Creatinine [Mass/Vol] 1.4 mg/dL High 0.5 - 1.3 mg/dL [facility] Remisol GFR/1.73 sq M.predicted among non-blacks MDRD (S/P/Bld) [Vol rate/Area] 40 mL/min/1.73 m2 Low >=59mL/min /1.73 m2 [facility] Chem S Glucose [Mass/Vol] 102 mg/dL Normal 55 - 199 mg/dL [facility] Remisol Potassium [Moles/Vol] 4.0 mmol/L Normal 3.5 - 5.3 mmol/L [facility] Remisol Sodium [Moles/Vol] 141 mmol/L Normal 135 - 145 mmol/L [facility] Remisol Urea nitrogen [Mass/Vol] 36 mg/dL High 5 - 21 mg/dL [facility] Remisol Urea nitrogen/Creatinine [Mass ratio] 26 mg/mg High 10 - 20 [facility] Remisol CHEMISTRYOrdered By: Gavino Lyle on 12-21-2022 HbA1c (Bld) [Mass fraction] 7.1 % High <=5.9% [facility] ChemAutoSS Capillary Glucose POCon Glucose [Mass/Vol] 127 mg/dL High 55- [facility] Comment on above: Result Comment: Navin BOSE Performed By: #### 2 [id number] ####[facility] [address] [place] [address] Glucose [Mass/Vol] 160 mg/dL High 55- [facility] Comment on above: Result Comment: Navin BOSE Performed By: #### 2 16462982 ####[facility] [address] [place] [address] Glucose [Mass/Vol] 132 mg/dL High 55- [facility] Comment on above: Result Comment: Navin BOSE Performed By: #### 2 25935268 ####[facility] [address] [place] [address] Glucose [Mass/Vol] 115 mg/dL High - Wilhelm [facility] Comment on above: Result Comment: Navin uriostegui RN/ Performed By: #### 2 [id number] ####[facility] [address] [place] [address] HEMATOLOGYOrdered By: SYSTEM SYSTEM on 12-21-2022 Basophils/100 [...] 34.8 g/dL Normal 31.4 - 36.0 gm/dL [facility] HemeAutoSS MCV (RBC) [Entitic vol] 98.6 fL Normal 80.0 - 100.0 fL [facility] HemeAutoSS Platelet mean volume (Bld) [Entitic vol] 6.8 fL Normal 6.4 - 10.8 fL [facility] HemeAutoSS Platelets (Bld) [#/Vol] 201.0 E9/L Normal 150. 0 - 500.0 E9/L [facility] HemeAutoSS RBC (Bld) [#/Vol] 2.7 E12/L Low 4.3 - 5.9 E12/L [facility] HemeAutoSS WBC corrected for nucl RBC Auto (Bld) [#/Vol] 3.3 E9/L Low 4.0 - 11.0 E9/L [facility] HemeAutoSS [id number] 12-21-2022 HbA1c (Bld) [Mass fraction] 7.1 % High <=5.9 [facility] Comment on above: Performed By: #### 2 993280, 8737587, 8854073, 49593888, 748411544 ####[facility] [address] [place] [address] Insurance Correspondence Off iceon 12-21-2022 Insurance Correspondence Office [id number]#1.00CD:12 7 Normal [facility] 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 Note - Attila e Manageron 12-21-2022 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 Note - Clam Shucking Machine Tender [facility] Comment on above: Result Comment: Elec tronically Signed By: Brooklynn Connor\Date and Time Signed: 12/21/22 11:15 EDT 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 Note - Rafat n 12-21-2022 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 Note - OT Normal [facility] 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 Note - PTo n 12-21-2022 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 Note - PT Normal [facility] 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 Note - Soc ial Workeron 12-21-2022 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 Note - Legal Transcriber [facility] Message from Medicareon 09-0 Message from Medicare [id number]#1.00CD:12 7 Normal [facility] Progress Note-Physicianon Progress Note-Physician Normal [facility] Comment on above: Result Comment: Elec tronically Signed By: Nathalia LUDWIG, Zaheer Song.br\Date and Time Signed: 12/21/22 14:15 EDT eGFRon 12-21-2022 GFR/1.73 sq M.predicted among non-blacks MDRD (S/P/Bld) [Vol rate/Area] 40 mL/min/1.73 m2 Low >=59 [facility] Comment on above: Order Comment: Order added by Discern Expert. 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 Kidney failure is indicated at less than 15 mL/min/1.73m2. Performed By: #### 2 251345, 9528132, 1435924, 18089106, 572101667 ####[facility] [address] [place] [address] Auto Diffon 12-20-2022 Basophils/100 WBC (Bld) 3.5 % High 0.0-2.0 [facility] Comment on above: Order Comment: Order Added by Discern Expert. Performed By: #### 2 519028, 5929760, 45746192, 3909812, 6545036, 38335084 ####[facility] [address] [place] [address] Basophils/Leukocytes Auto (Bld) [Pure # fraction] 0.1 E9/L Normal 0.0-0.2 [facility] Comment on above: Order Comment: Order Added by Discern Expert. Performed By: #### 2 466354, 7224017, 25980019, 8897307, 7734048, 17371542 ####[facility] [address] [place] [address] Eosinophils/100 WBC (Bld) 1.3 % Normal 0.0-8.0 [facility] Comment on above: Order Comment: Order Added by Discern Expert. Performed By: #### 2 649295, 1806565, 07996078, 3520668, 6292879, 62194545 ####[address] [address] Eosinophils/Leukocytes Auto (Bld) [Pure # fraction] 0.0 E9/L Normal 0.0-0.5 [facility] Comment on above: Order Comment: Order Added by Discern Expert. Performed By: #### 2 608495, 6133339, 28415401, 4466146, 1175100, 80907877 ####[address] [address] Lymphocytes/100 WBC (Bld) 28.4 % Normal 14.0-50.0 [facility] Comment on above: Order Comment: Order Added by Discern Expert. Performed By: #### 2 083626, 9687770, 52682856, 5954643, 6546386, 73240251 ####[address] [address] Lymphocytes/Leukocytes Auto (Bld) [Pure # fraction] 1.1 E9/L Normal 1.0-4.0 [facility] Comment on above: Order Comment: Order Added by Faviola Expert. Performed By: #### 2 064657, 6677775, 11451957, 0743485, 9289666, 91513171 ####[address] [address] Monocytes/100 WBC (Bld) 12.5 % Normal 4.0-14.0 [facility] Comment on above: Order Comment: Order Added by Discern Expert. Performed By: #### 2 719175, 7272647, 31459784, 8662842, 8192170, 03021863 ####[address] [address] Monocytes/Leukocytes Auto (Bld) [Pure # fraction] 0.5 E9/L Normal 0.2-1.0 [facility] Comment on above: Order Comment: Order Added by Faviola Expert. Performed By: #### 2 791755, 0899200, 85906753, 6903326, 4619032, 97555239 ####[facility] [address] [place] [address] Neutrophils/100 WBC (Bld) 54.3 % Normal 36.0-75.0 [facility] Comment on above: Order Comment: Order Added by Discern Expert. Performed By: #### 2 853216, 8654205, 13508231, 1690918, 7963536, 34540100 ####[facility] [address] [place] [address] Neutrophils/Leukocytes Auto (Bld) [Pure # fraction] 2.1 E9/L Normal 2.0-7.5 [facility] Comment on above: Order Comment: Order Added by Discern Expert. Performed By: #### 2 827575, 0569319, 73626628, 8813243, 4597288, 77634248 ####[facility] [address] [place] [address] BMPon 12-20-2022 Creatinine [Mass/Vol] 1.3 mg/dL Normal 0.5-1.3 [facility] Comment on above: Performed By: #### 2 119299, 5122790, 35750500, 2832613, 9665270, 79603097 ####[facility] [address] [place] [address] Urea nitrogen [Mass/Vol] 36 mg/dL High 5-21 [facility] Comment on above: Performed By: #### 2 656584, 0914714, 04915838, 7988547, 8532103, 81678198 ####[facility] [address] [place] [address] Urea nitrogen/Creatinine [Mass ratio] 28 No Units High 10-20 [facility] Comment on above: Performed By: #### 2 045218, 6783460, 23483792, 6157085, 4851134, 02962158 ####[facility] [address] [place] [address] Anion gap [Moles/Vol] 13 mmol/L Normal 6-16 [facility] Comment on above: Performed By: #### 2 341075, 1436949, 78110060, 5154560, 9517812, 85034772 ####[facility] [address] [place] [address] Calcium [Mass/Vol] 9.6 mg/dL Normal 8.9-11.1 [facility] Comment on above: Performed By: #### 2 120697, 3862064, 08899108, 3220295, 3867042, 55566442 ####[facility] [address] [place] [address] Chloride [Moles/Vol] 108 mmol/L Normal 101-111 [facility] Comment on above: Performed By: #### 2 578669, 3118757, 04760394, 0203730, 7363625, 86940223 ####[facility] [address] [place] [address] CO2 [Moles/Vol] 21 mmol/L Normal 21-31 [facility] Comment on above: Performed By: #### 2 139155, 5448793, 44561759, 7599343, 7093218, 20952019 ####[facility] [address] [place] [address] Glucose [Mass/Vol] 136 mg/dL Normal 55-199 [facility] Comment on above: Result Comment: If t his glucose result represents a fasting glucose, interpretation should refer to the following reference range: 55-99 mg/dL Performed By: #### 2 149853, 6407815, 72183729, 7704275, 5543968, 17925182 ####[facility] [address] [place] [address] Potassium [Moles/Vol] 4.2 mmol/L Normal 3.5-5.3 [facility] Comment on above: Performed By: #### 2 921981, 0611502, 88884871, 0167057, 0765922, 68156924 ####[facility] [address] [place] [address] Sodium [Moles/Vol] 138 mmol/L Normal 135-145 [facility] Comment on above: Performed By: #### 2 481317, 7708691, 05428816, 0115934, 7578851, 23732974 ####[facility] [address] [place] [address] CBC w/ Auto Diffon Erythrocyte distribution width (RBC) [Ratio] 19.0 % High 10.9-14.2 [facility] Comment on above: Performed By: #### 2 719821, 9099542, 22769911, 0415927, 1215457, 09501171 ####[address] [place] [address] Hematocrit (Bld) [Volume fraction] 31.3 % Low 34.0-46.0 [facility] Comment on above: Performed By: #### 2 467300, 2711818, 53898105, 6718035, 8872024, 56092344 ####[address] [address] Hemoglobin (Bld) [Mass/Vol] 10.4 g/dL Low 12.0-16.0 [facility] Comment on above: Performed By: #### 2 351581, 6880030, 82984848, 9070224, 6807569, 80382264 ####[address] [address] MCH (RBC) [Entitic mass] 33.3 pg Normal 27.0-34.0 [facility] Comment on above: Performed By: #### 2 930886, 8663668, 80052019, 7431077, 4960876, 15004589 ####[address] [address] MCHC (RBC) [Mass/Vol] 33.3 g/dL Normal 31.4-36.0 [facility] Comment on above: Performed By: #### 2 464472, 7895908, 60253334, 8518422, 5123552, 59204499 ####[facility] [address] [place] [address] MCV (RBC) [Entitic vol] 99.8 fL Normal 80.0-100.0 [facility] Comment on above: Performed By: #### 2 796092, 4027461, 75574659, 2348670, 5977103, 20438848 ####[address] [address] Platelet mean volume (Bld) [Entitic vol] 6.8 fL Normal 6.4-10.8 [facility] Comment on above: Performed By: #### 2 247336, 6175656, 49691479, 5326404, 9043230, 36589173 ####[address] [address] Platelets (Bld) [#/Vol] 212.0 E9/L Normal 150. 0-500. 0 [facility] Comment on above: Performed By: #### 2 644327, 5815535, 75775618, 3506300, 9775756, 08179035 ####[address] [address] RBC (Bld) [#/Vol] 3.1 E12/L Low 4.3-5.9 [facility] Comment on above: Performed By: #### 2 112312, 4650749, 02991366, 2640313, 9436307, 53518462 ####[address] [address] WBC corrected for nucl RBC Auto (Bld) [#/Vol] 3.9 E9/L Low 4.0-11.0 [facility] Comment on above: Performed By: #### 2 169415, 1558550, 88462151, 5236072, 8880783, 13307636 ####[address] [address] CHEMISTRYOrdered By: SYSTEM SYSTEM on 12-20-2022 Troponin [...] 4.2 mmol/L Normal 3.5 - 5.3 mmol/L [facility] Remisol Protein [Mass/Vol] 7.3 g/dL Normal 6.0 - 7.8 gm/dL [facility] Remisol Sodium [Moles/Vol] 138 mmol/L Normal 135 - 145 mmol/L [facility] Remisol Troponin I.cardiac [Mass/Vol] 9.80 pg/mL Low 10.10 - 27.10 pg/mL [facility] Remisol Urea nitrogen [Mass/Vol] 36 mg/dL High 5 - 21 mg/dL [facility] Remisol Urea nitrogen/Creatinine [Mass ratio] 28 mg/mg High 10 - 20 [facility] Remisol Consent for Treatmenton 11-22 Consent for Treatment [id number]#[id number]:12 7 Normal [facility] Consent for Treatment [id number]#[id number]:1 27 Normal [facility] Discharge Instructionson Discharge Instructions [id number]#[id number]:1 27 Normal [facility] ED Clinical Summaryon 2022 ED Clinical Summary Normal [facility] ED Clinical Summary Normal [facility] ED Note-Physicianon 12-21-19 ED Note-Physician Normal [facility] Comment on above: Result Comment: Elec tronically Signed By: Pedro Nava DO\.br\Date and Time Signed: 12/20/22 19:22 EDT ED Note-Physician Normal [facility] Comment on above: Result Comment: Elec tronically Signed By: David Tong MD\.br\Date and Time Signed: 12/20/22 00:40 EDT ED Patient Education Noteon 12-20-2022 ED Patient Education Note Normal [facility] ED Patient Education Note Normal [facility] ED Patient Summaryon 023 ED Patient Summary Normal [facility] ED Patient Summary Normal [facility] HEMATOLOGYOrdered By: SYSTEM SYSTEM on 12-20-2022 Basophils/100 [...] 6.8 fL Normal 6.4 - 10.8 fL [facility] HemeAutoSS Platelets (Bld) [#/Vol] 212.0 E9/L Normal 150. 0 - 500.0 E9/L [facility] HemeAutoSS RBC (Bld) [#/Vol] 3.1 E12/L Low 4.3 - 5.9 E12/L [facility] HemeAutoSS WBC corrected for nucl RBC Auto (Bld) [#/Vol] 3.9 E9/L Low 4.0 - 11.0 E9/L [facility] HemeAutoSS Hep Func Panelon 12-20-2022 Bilirubin.direct [Mass/Vol] 0.1 mg/dL Normal 0.1-0.4 [facility] Comment on above: Performed By: #### 2 662025, 7951025, 17798118, 1143743, 0517541, 05744895 ####[facility] [address] [place] [address] Bilirubin.indirect [Mass or moles/Vol] 0.8 mg/dL Normal 0.1-0.9 [facility] Comment on above: Performed By: #### 2 401017, 9335023, 40933583, 2991137, 4320891, 11710529 ####[facility] [address] [place] [address] Albumin [Mass/Vol] 3.5 g/dL Normal 3.3-5.0 [facility] Comment on above: Performed By: #### 2 788232, 0306372, 00513853, 6839762, 6570518, 39469212 ####[facility] [address] [place] [address] Albumin/Globulin (S) [Mass conc ratio] 0.9 Low 1.1-2.2 [facility] Comment on above: Performed By: #### 2 295943, 7448120, 11086956, 0857211, 5860528, 97416056 ####[facility] [address] [place] [address] ALP [Catalytic activity/Vol] 101 Int._Unit/L High 21-98 [facility] Comment on above: Performed By: #### 2 755955, 0613198, 35271034, 0419210, 0738522, 32356124 ####[facility] [address] [place] [address] ALT No additional P-5'-P [Catalytic activity/Vol] 20 Int._Unit/L Normal 6-46 [facility] Comment on above: Performed By: #### 2 176547, 6555069, 53349737, 0100652, 8934498, 05049535 ####[facility] [address] [place] [address] AST [Catalytic activity/Vol] 18 Int._Unit/L Normal 5-43 [facility] Comment on above: Performed By: #### 2 912493, 0214526, 63485478, 1907194, 8744861, 41294566 ####[facility] [address] [place] [address] Bilirubin [Mass/Vol] 0.9 mg/dL Normal 0.0-1.1 [facility] Comment on above: Performed By: #### 2 038931, 6887092, 71946853, 2376682, 0155031, 12677190 ####[facility] [address] [place] [address] Globulin (S) [Mass/Vol] 3.8 g/dL Normal 1.4-4.0 [facility] Comment on above: Performed By: #### 2 809175, 3890696, 53098112, 5175454, 1247938, 64685756 ####[facility] [address] [place] [address] Protein [Mass/Vol] 7.3 g/dL Normal 6.0-7.8 [facility] Comment on above: Performed By: #### 2 700003, 3355067, 48205246, 8042824, 1777277, 40976114 ####[facility] [address] [place] [address] Laboratory - Microbiology an d Antimicrobial susceptibilityOrdered By: Ninfa Sawyer on 12-20-2022 Bacteria identified Cx Nom (U) 1,000 cfu/ml Mixed skin contaminants [facility] Monitor Recordon 12-20-2022 Monitor Record [id number]:1 27 Normal [facility] Monitor Record [id number]#[id number]:1 27 Normal [facility] Pre-Arrival Noteon 3 Pre-Arrival Note Normal [facility] Troponin 0 Hr.on 12-20-2022 Troponin I.cardiac [Mass/Vol] 9.80 pg/mL Low 10.10-27.1 0 [facility] Comment on above: Result Comment: The 95% CI (Confidence Interval) PPV (Positive Predictive Value) for myocardial infarction in females is 38 pg/mL, in males 51 pg/mL. The results should be used in conjunction with clinical conditions of myocardial infarction.(Access High Sensitivity Troponin I Instructions For Use, [employer], November 2017) Performed By: #### 2 088418, 0629944, 60407500, 8391322, 4505103, 85151739 ####[facility] [address] [place] [address] Troponin 3 Hr.on 12-20-2022 Troponin I.cardiac [Mass/Vol] 10.20 pg/mL Normal 10.10-27.1 0 [facility] Comment on above: Result Comment: The 95% CI (Confidence Interval) PPV (Positive Predictive Value) for myocardial infarction in females is 38 pg/mL, in males 51 pg/mL. The results should be used in conjunction with clinical conditions of myocardial infarction.(Access High Sensitivity Troponin I Instructions For Use, [employer], November 2017) Performed By: #### 1 0735430 ####[facility] [address] [place] [address] UA With Cult Reflexon 2022 Bilirubin Ql (U) Negative Normal Negative [facility] Comment on above: Performed By: #### 2 001184, 98244536 ####[place] [place] [address] Clarity (U) CLEAR Normal Clear [facility] Comment on above: Performed By: #### 2 320345, 98155112 ####[address] [address] Color (U) STRAW Abnormal Yellow [facility] Comment on above: Performed By: #### 2 319619, 71525494 ####[address] [address] Epithelial cells.squamous LM.HPF (Urine sed) [#/Area] 0-2 Normal 0-2 [facility] Comment on above: Performed By: #### 2 889632, 22120441 ####[address] [address] Glucose Test strip (U) [Mass/Vol] Negative Normal Negative [facility] Comment on above: Performed By: #### 2 936055, 54303073 ####[address] [address] Hemoglobin Ql (U) TRACE Abnormal Negative [facility] Comment on above: Performed By: #### 2 812694, 18140493 ####[address] [address] Ketones (U) [Mass/Vol] Negative Normal Negative [facility] Comment on above: Performed By: #### 2 308015, 33276078 ####[address] [address] [place].plasma/[place]. RBC (Bld) [Mass ratio] 0-3 Normal 0-3 [facility] Comment on above: Performed By: #### 2 613609, 05397453 ####[address] [address] Nitrite Ql (U) Negative Normal Negative [facility] Comment on above: Performed By: #### 2 306716, 35064166 ####[address] [address] pH (U) 5.5 [pH] Invalid Interpretation Code 5.0-9.0 [facility] Comment on above: Performed By: #### 2 750298, 91850080 ####[address] [address] Protein (U) [Mass/Vol] Negative Normal Negative [facility] Comment on above: Performed By: #### 2 932588, 07504988 ####[place] [address] Specific gravity (U) [Rel density] <=1.005 Invalid Interpretation Code 1.005-1.03 0 [facility] Comment on above: Performed By: #### 2 340467, 33983892 ####[place] [address] Type of Urine collection method Clean Catch Normal [facility] Comment on above: Performed By: #### 2 989905, 85671779 ####[place] [address] Urobilinogen Qn (U) 0.2 {Tj'U}/dL Normal 0.0-1.0 [facility] Comment on above: Performed By: #### 2 524489, 87880971 ####[place] [address] WBC Auto Ql (U) 1+ Abnormal Negative [facility] Comment on above: Performed By: #### 2 589323, 62066988 ####[place] [address] WBC LM.HPF (Urine sed) [#/Area] 6-15 Abnormal 0-5 [facility] Comment on above: Performed By: #### 2 668756, 51265287 ####[place] [address] UA Spec Desc Catheter Normal [facility] Comment on above: Result Comment: Mini cath specimen Performed By: #### 1 6327284, 3021216 ####[place] [address] Bacteria LM Ql (Urine sed) 2+ /HPF Abnormal Trace [facility] Comment on above: Performed By: #### 1 8927365, 1858282 ####[facility] [address] [place] [address] Bilirubin Ql (U) Negative Normal Negative [facility] Comment on above: Performed By: #### 1 4048995, 1123089 ####[facility] [address] [place] [address] Clarity (U) CLEAR Normal Clear [facility] Comment on above: Performed By: #### 1 0910618, 0864740 ####[address] [address] Color (U) YELLOW Normal Yellow [facility] Comment on above: Performed By: #### 1 6532886, 3030198 ####[address] [address] Epithelial cells.squamous LM.HPF (Urine sed) [#/Area] 0-2 Normal 0-2 [facility] Comment on above: Performed By: #### 1 1823911, 3264147 ####[facility] [address] [place] [address] Glucose Test strip (U) [Mass/Vol] Negative Normal Negative [facility] Comment on above: Performed By: #### 1 6528463, 3052341 ####[facility] [address] [place] [address] Hemoglobin Ql (U) Negative Normal Negative [facility] Comment on above: Performed By: #### 1 2003695, 1298177 ####[facility] [address] [place] [address] Ketones (U) [Mass/Vol] Negative Normal Negative Fi [facility] Comment on above: Performed By: #### 1 7321583, 4524696 ####[facility] [address] [place] [address] [place].plasma/[place]. RBC (Bld) [Mass ratio] 0-3 Normal 0-3 [facility] Comment on above: Performed By: #### 1 5345835, 1051669 ####[facility] [address] [place] [address] Nitrite Ql (U) Positive Abnormal Negative [facility] Comment on above: Performed By: #### 1 9692355, 0995942 ####[address] [address] pH (U) 6.0 [pH] Invalid Interpretation Code 5.0-9.0 [facility] Comment on above: Performed By: #### 1 4556019, 4149555 ####[address] [address] Protein (U) [Mass/Vol] Negative Normal Negative [facility] Comment on above: Performed By: #### 1 8711167, 3443571 ####[address] [address] Specific gravity (U) [Rel density] 1.025 Invalid Interpretation Code 1.005-1.03 0 [facility] Comment on above: Performed By: #### 1 6325712, 7826832 ####[place] [address] Urobilinogen Qn (U) 0.2 {Tj'U}/dL Normal 0.0-1.0 [facility] Comment on above: Performed By: #### 1 5585712, 8923124 ####[address] [address] WBC Auto Ql (U) TRACE Abnormal Negative [facility] Comment on above: Performed By: #### 1 5493997, 5812984 ####[address] [address] WBC LM.HPF (Urine sed) [#/Area] 0-5 Normal 0-5 [facility] Comment on above: Performed By: #### 1 2603637, 6668750 ####[address] [address] URINALYSISOrdered By: Lisette Medina on 12-20-2022 Bilirubin [...] PM) Normal Negative [facility] UA Auto SS [place].plasma/[place]. RBC (Bld) [Mass ratio] 0-3 /HPF Normal [...] [facility] UA Auto SS Urobilinogen Qn (U) 0.5010683 {Tj'U}/dL Normal 0.0 - 1.0 EU/dL [facility] UA Auto SS WBC Auto Ql (U) 1+ *ABN* (12/20/22 5:18 PM) Invalid Interpretation Code Negative [facility] UA Auto SS WBC LM.HPF (Urine sed) [#/Area] 6-15 /HPF Invalid Interpretation Code 0-5/HPF [facility] UA Auto SS XR Chest Single Viewon 12-20 XR Chest Single View Normal [facility] XR Chest Single View Normal [facility] eGFRon 12-20-2022 GFR/1.73 sq M.predicted among non-blacks MDRD (S/P/Bld) [Vol rate/Area] 43 mL/min/1.73 m2 Low >=59 [facility] Comment on above: Order Comment: Order added by Discern Expert. 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 Kidney failure is indicated at less than 15 mL/min/1.73m2. Performed By: #### 2 624348, 4386527, 84074430, 2112377, 0015257, 02621908 ####[facility] [address] [place] [address] Auto Diffon 12-19-2022 Basophils/100 WBC (Bld) 0.4 % Normal 0.0-2.0 [facility] Comment on above: Order Comment: Order Added by Discern Expert. Performed By: #### 2 464607, 8689377, 9750138, 77278952, 9492190, 98712700, 0616831, 23038356 ####[facility] [address] [place] [address] Basophils/Leukocytes Auto (Bld) [Pure # fraction] 0.0 E9/L Normal 0.0-0.2 [facility] Comment on above: Order Comment: Order Added by Discern Expert. Performed By: #### 2 760693, 1500374, 2532566, 84592377, 6502606, 13039643, 8143261, 92271217 ####[facility] [address] [place] [address] Eosinophils/100 WBC (Bld) 1.6 % Normal 0.0-8.0 [facility] Comment on above: Order Comment: Order Added by Discern Expert. Performed By: #### 2 463695, 5604274, 9876378, 71049671, 8033444, 09249083, 2639558, 09833727 ####[address] [place] [address] Eosinophils/Leukocytes Auto (Bld) [Pure # fraction] 0.1 E9/L Normal 0.0-0.5 [facility] Comment on above: Order Comment: Order Added by Discern Expert. Performed By: #### 2 711548, 0834792, 7001157, 25102677, 7833897, 12061933, 2053350, 22218568 ####[address] [place] [address] Lymphocytes/100 WBC (Bld) 34.4 % Normal 14.0-50.0 [facility] Comment on above: Order Comment: Order Added by Discern Expert. Performed By: #### 2 163667, 2434427, 2868012, 44288895, 0781429, 54895618, 6198072, 11593219 ####[address] [address] Lymphocytes/Leukocytes Auto (Bld) [Pure # fraction] 1.2 E9/L Normal 1.0-4.0 [facility] Comment on above: Order Comment: Order Added by Discern Expert. Performed By: #### 2 137967, 3460427, 6128324, 83228598, 6687482, 47726215, 1226421, 44354939 ####[address] [place] [address] Monocytes/100 WBC (Bld) 12.8 % Normal 4.0-14.0 [facility] Comment on above: Order Comment: Order Added by Discern Expert. Performed By: #### 2 269395, 9758889, 1599006, 62804734, 4833421, 95445577, 0289877, 38197012 ####[address] [place] [address] Monocytes/Leukocytes Auto (Bld) [Pure # fraction] 0.4 E9/L Normal 0.2-1.0 [facility] Comment on above: Order Comment: Order Added by Discern Expert. Performed By: #### 2 406976, 6094600, 6267310, 67815961, 7266423, 24318959, 6375914, 88848420 ####[facility] [address] [place] [address] Neutrophils/100 WBC (Bld) 50.8 % Normal 36.0-75.0 [facility] Comment on above: Order Comment: Order Added by Discern Expert. Performed By: #### 2 935403, 0914580, 3142001, 05800324, 7264224, 26678050, 0662739, 52363265 ####[facility] [address] [place] [address] Neutrophils/Leukocytes Auto (Bld) [Pure # fraction] 1.7 E9/L Low 2.0-7.5 [facility] Comment on above: Order Comment: Order Added by Discern Expert. Performed By: #### 2 792028, 8644857, 4120424, 19402518, 1729048, 35660721, 1162589, 88390751 ####[facility] [address] [place] [address] BMPon 12-19-2022 Anion gap [Moles/Vol] 10 mmol/L Normal 6-16 [facility] Comment on above: Performed By: #### 2 088699, 1955330, 0815179, 00212298, 5307302, 04109863, 6626145, 41976452 ####[facility] [address] [place] [address] Calcium [Mass/Vol] 9.4 mg/dL Normal 8.9-11.1 [facility] Comment on above: Performed By: #### 2 039391, 6222353, 6917908, 04477883, 0705259, 73477284, 4595012, 04676802 ####[facility] [address] [place] [address] Chloride [Moles/Vol] 111 mmol/L Normal 101-111 [facility] Comment on above: Performed By: #### 2 275475, 4806238, 9790201, 32787589, 6408242, 21421440, 7606579, 02229910 ####[facility] [address] [place] [address] CO2 [Moles/Vol] 25 mmol/L Normal 21-31 [facility] Comment on above: Performed By: #### 2 322231, 0172353, 5290021, 55975851, 4632749, 48600858, 8749202, 38390894 ####[facility] [address] [place] [address] Creatinine [Mass/Vol] 1.4 mg/dL High 0.5-1.3 [facility] Comment on above: Performed By: #### 2 129749, 6423869, 7757749, 06115750, 9727603, 72567627, 9707014, 22798487 ####[facility] [address] [place] [address] Glucose [Mass/Vol] 165 mg/dL Normal 55-199 [facility] Comment on above: Result Comment: If t his glucose result represents a fasting glucose, interpretation should refer to the following reference range: 55-99 mg/dL Performed By: #### 2 257826, 8170161, 5158780, 85405054, 7412933, 88387113, 2961056, 68458999 ####[facility] [address] [place] [address] Potassium [Moles/Vol] 4.6 mmol/L Normal 3.5-5.3 [facility] Comment on above: Performed By: #### 2 608046, 0965530, 9555988, 92765782, 7236421, 81800001, 5111355, 84969014 ####[facility] [address] [place] [address] Sodium [Moles/Vol] 141 mmol/L Normal 135-145 [facility] Comment on above: Performed By: #### 2 046596, 9185693, 5013066, 64145028, 7807376, 28640045, 7563886, 45797719 ####[facility] [address] [place] [address] Urea nitrogen [Mass/Vol] 36 mg/dL High 5-21 [facility] Comment on above: Performed By: #### 2 483832, 5641641, 1623462, 04497380, 2088280, 12492514, 7863899, 75900009 ####[facility] [address] [place] [address] Urea nitrogen/Creatinine [Mass ratio] 26 No Units High 10-20 [facility] Comment on above: Performed By: #### 2 523433, 0719951, 6115927, 15529174, 3508551, 45661088, 6986858, 19213352 ####[address] [place] [address] CBC w/ Auto Diffon 3 Erythrocyte distribution width (RBC) [Ratio] 18.9 % High 10.9-14.2 [facility] Comment on above: Performed By: #### 2 435460, 6435682, 6366862, 38983288, 3572602, 43715985, 5355632, 15095694 ####[facility] [address] [place] [address] Hematocrit (Bld) [Volume fraction] 32.2 % Low 34.0-46.0 [facility] Comment on above: Performed By: #### 2 838327, 3299785, 9170292, 91825822, 5656198, 73180834, 6890288, 94525274 ####[facility] [address] [place] [address] Hemoglobin (Bld) [Mass/Vol] 10.8 g/dL Low 12.0-16.0 [facility] Comment on above: Performed By: #### 2 057380, 8166485, 4236360, 74700884, 9866900, 60632873, 6549349, 94696079 ####[address] [place] [address] MCH (RBC) [Entitic mass] 33.5 pg Normal 27.0-34.0 [facility] Comment on above: Performed By: #### 2 797975, 1027263, 1480447, 66024626, 2484155, 75291563, 4684753, 69796633 ####[address] [address] MCHC (RBC) [Mass/Vol] 33.4 g/dL Normal 31.4-36.0 [facility] Comment on above: Performed By: #### 2 512233, 4145795, 7300110, 82934011, 0057947, 55791419, 4713741, 32084327 ####[address] [address] MCV (RBC) [Entitic vol] 100.5 fL High 80.0-100.0 [facility] Comment on above: Performed By: #### 2 957595, 5410488, 6253111, 15889699, 8145567, 98271812, 8945579, 35911598 ####[address] [address] Platelet mean volume (Bld) [Entitic vol] 7.0 fL Normal 6.4-10.8 [facility] Comment on above: Performed By: #### 2 223466, 4801232, 2099718, 48543583, 7046776, 67436196, 2875019, 86860893 ####[address] [address] Platelets (Bld) [#/Vol] 204.0 E9/L Normal 150. 0-500. 0 [facility] Comment on above: Performed By: #### 2 927784, 0704421, 7974860, 53748819, 9671402, 66547724, 4565415, 17680050 ####[address] [address] RBC (Bld) [#/Vol] 3.2 E12/L Low 4.3-5.9 [facility] Comment on above: Performed By: #### 2 018078, 2630719, 7819327, 51030198, 9004526, 00361067, 5234979, 49808447 ####[facility] [address] [place] [address] WBC corrected for nucl RBC Auto (Bld) [#/Vol] 3.4 E9/L Low 4.0-11.0 [facility] Comment on above: Performed By: #### 2 842632, 2210801, 7826250, 49522141, 8719019, 49258853, 8878066, 16621129 ####[facility] [address] [place] [address] CHEMISTRYOrdered By: SYSTEM SYSTEM on 12-19-2022 Albumin [...] 7.0 fL Normal 6.4 - 10.8 fL [facility] HemeAutoSS Platelets (Bld) [#/Vol] 204.0 E9/L Normal 150. 0 - 500.0 E9/L [facility] HemeAutoSS RBC (Bld) [#/Vol] 3.2 E12/L Low 4.3 - 5.9 E12/L [facility] HemeAutoSS WBC corrected for nucl RBC Auto (Bld) [#/Vol] 3.4 E9/L Low 4.0 - 11.0 E9/L [facility] HemeAutoSS Hep Func Panelon 12-19-2022 Albumin [Mass/Vol] 3.5 g/dL Normal 3.3-5.0 [facility] Comment on above: Performed By: #### 2 634205, 3086520, 7732127, 05852763, 4524462, 15770983, 4110314, 51335024 ####[facility] [address] [place] [address] Albumin/Globulin (S) [Mass conc ratio] 1.0 Low 1.1-2.2 [facility] Comment on above: Performed By: #### 2 687028, 7769054, 4732438, 50081590, 8613783, 37364397, 3933540, 11928511 ####[facility] [address] [place] [address] ALP [Catalytic activity/Vol] 110 Int._Unit/L High 21-98 [facility] Comment on above: Performed By: #### 2 899901, 6074866, 7164840, 67646377, 2836384, 76625494, 6620181, 05697781 ####[facility] [address] [place] [address] ALT No additional P-5'-P [Catalytic activity/Vol] 20 Int._Unit/L Normal 6-46 [facility] Comment on above: Performed By: #### 2 094768, 1313765, 0540866, 60639298, 2707780, 11456353, 1548415, 92234404 ####[facility] [address] [place] [address] AST [Catalytic activity/Vol] 19 Int._Unit/L Normal 5-43 [facility] Comment on above: Performed By: #### 2 745757, 7946446, 4613154, 10655618, 7454224, 23348888, 6722595, 87978961 ####[facility] [address] [place] [address] Bilirubin [Mass/Vol] 0.4 mg/dL Normal 0.0-1.1 [facility] Comment on above: Performed By: #### 2 596008, 8139691, 4167036, 77525756, 1390026, 87991201, 3703171, 03224529 ####[address] [address] Bilirubin.direct [Mass/Vol] 0.1 mg/dL Normal 0.1-0.4 [facility] Comment on above: Performed By: #### 2 401958, 3121184, 5382003, 21093214, 6678745, 41159680, 6190452, 90359956 ####[facility] [address] [place] [address] Bilirubin.indirect [Mass or moles/Vol] 0.3 mg/dL Normal 0.1-0.9 [facility] Comment on above: Performed By: #### 2 702365, 1381700, 2642085, 80226836, 5304603, 92713132, 0381338, 63846425 ####[facility] [address] [place] [address] Globulin (S) [Mass/Vol] 3.5 g/dL Normal 1.4-4.0 [facility] Comment on above: Performed By: #### 2 104993, 2150997, 0035044, 95726903, 5631666, 03391955, 2127189, 86939284 ####[facility] [address] [place] [address] Protein [Mass/Vol] 7.0 g/dL Normal 6.0-7.8 [facility] Comment on above: Performed By: #### 2 979843, 9517115, 5186659, 02998125, 6647089, 01396819, 6317253, 40086182 ####[facility] [address] [place] [address] Laboratory - Microbiology an d Antimicrobial susceptibilityOrdered By: Jeaneth Morfin on 12-19-2022 Bacteria identified Cx Nom (U) >100,000 cfu/ml Gram Negative Glynn Auto Hauler species [facility] Magnesiumon 12-19-2022 Magnesium [Mass/Vol] 2.0 mg/dL Normal 1.3-2.4 [facility] Comment on above: Performed By: #### 2 077458, 2399916, 6794134, 06701924, 4052794, 37568631, 0637191, 28430571 ####[facility] [address] [place] [address] PT & PTTon 12-19-2022 aPTT Coag (PPP) [Time] 26.7 second(s) Normal 25.1-36.5 [facility] Comment on above: Result Comment: Para meter [...] the same coagulation reagent and instrumentation as [facility]. Currently there are no coagulation studies available worldwide for children to 14 days, and no normal ranges. Heparin therapeutic range (represented by Anti-Factor Xa activity of 0.2 - 0.4 U/mL) corresponds to PTT of 56.6 - 109.0 sec. Performed By: #### 2 780022, 6639115, 2830911, 22369997, 6429071, 51999850, 7232732, 61873842 ####[facility] [address] [place] [address] INR Coag (PPP) [Relative time] 1.0 {INR} Invalid Interpretation Code [facility] Comment on above: Result Comment: INR results are specifically intended to assess patients stabilized on long-term Anticoagulation therapy suggested INR?s ?Less Intensive Anticoagulation? 2.0 ? 3.0Conventional Range 3.0 ? 4.5 Performed By: #### 2 971899, 7751134, 1001316, 70355307, 3559605, 41850486, 7682770, 46842794 ####[facility] [address] [place] [address] PT Coag (PPP) [Time] 11.5 second(s) Normal 9.4-12.5 [facility] Comment on above: Result Comment: 15 d [...] the same coagulation reagent and instrumentation as [facility]. Currently there are no coagulation studies available worldwide for children to 14 days, and no normal ranges. Performed By: #### 2 655920, 9441695, 2690604, 23922638, 1407373, 85149213, 1164148, 64803883 ####[facility] [address] [place] [address] Pre-Arrival Noteon Pre-Arrival Note Normal [facility] Troponin 0 Hr.on 12-19-2022 Troponin I.cardiac [Mass/Vol] 9.40 pg/mL Low 10.10-27.1 0 [facility] Comment on above: Result Comment: The 95% CI (Confidence Interval) PPV (Positive Predictive Value) for myocardial infarction in females is 38 pg/mL, in males 51 pg/mL. The results should be used in conjunction with clinical conditions of myocardial infarction.(Access High Sensitivity Troponin I Instructions For Use, Gaby [place], November 2017) Performed By: #### 2 095040, 7809988, 8103609, 37948015, 9405531, 84190234, 4709683, 92955557 ####[facility] [address] [place] [address] URINALYSISOrdered By: Evert Cordoba on 12-19-2022 Bacteria [...] PM) Normal Negative [facility] UA Auto SS [place].plasma/[place]. RBC (Bld) [Mass ratio] 0-3 /HPF Normal 0-3/HPF [facility] UA Auto SS Nitrite Ql (U) Positive *ABN* (12/19/22 10:25 PM) Invalid Interpretation Code Negative [facility] UA Auto SS pH (U) 6.0 *NA* (12/19/22 10:25 PM) Invalid Interpretation Code 5.0 - 9.0 [facility] UA Auto SS Protein (U) [Mass/Vol] Negative (12/19/22 10:25 PM) Normal Negative [facility] UA Auto SS Specific gravity (U) [Rel density] 1.025 *NA* (12/19/22 10:25 PM) Invalid Interpretation Code 1.005 - 1.030 [facility] UA Auto SS UA Spec Desc Catheter 1 (12/19/22 10:25 PM) Normal [facility] UA Auto SS Comment on above: Result Comment: Mini cath specimen Urobilinogen Qn (U) 0.7840213 {Tj'U}/dL Normal 0.0 - 1.0 EU/dL [facility] UA Auto SS WBC Auto Ql (U) Trace *ABN* (12/19/22 10:25 PM) Invalid Interpretation Code Negative [facility] UA Auto SS WBC LM.HPF (Urine sed) [#/Area] 0-5 /HPF Normal 0-5/HPF [facility] UA Auto SS eGFRon 12-19-2022 GFR/1.73 sq M.predicted among non-blacks MDRD (S/P/Bld) [Vol rate/Area] 40 mL/min/1.73 m2 Low >=59 [facility] Comment on above: Order Comment: Order added by Discern Expert. 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 Kidney failure is indicated at less than 15 mL/min/1.73m2. Performed By: #### 2 121279, 2631262, 4582871, 70203380, 9270183, 07805621, 2632063, 21193876 ####[facility] [address] [place] [address] CT Spine Lumbar w/o Contrast on 12-17-2022 CT Spine Lumbar w/o Contrast Normal [facility] Consent for Treatmenton 11-21 Consent for Treatment [id number]#1.00CD:1 27 Normal [facility] Discharge Instructionson Discharge Instructions [id number]#1.00CD:1 27 Normal [facility] ED Clinical Summaryon 2022 ED Clinical Summary Normal [facility] ED Note-Physicianon 12-18-19 ED Note-Physician Normal [facility] Comment on above: Result Comment: Elec tronically Signed By: Gui Scruggs PA-C\.br\Date and Time Signed: 12/17/22 13:40 EDT\.br\Electronically Co-Signed By: Jeffery Murphy DO\.br\Date and Time Co-Signed: 12/17/22 18:34 EDT ED Patient Education Noteon 12-17-2022 ED Patient Education Note Normal [facility] ED Patient Summaryon 023 ED Patient Summary Normal [facility] Senior Living Recordson 12-17 Senior Living Records [id number]#1.00CD:1 27 Normal [facility] XR Hip 2-3 Views Right + Pel vison 12-17-2022 XR Hip 2-3 Views Right + Pelvis Normal [facility] XR Spine Lumbosacral 2 or 3 Viewson 12-17-2022 XR Spine Lumbosacral 2 or 3 Views Normal [facility] Family Medicine Office/Clini c Noteon 12-14-2022 Family Medicine Office/Clinic Note Normal [facility] Comment on above: Result Comment: Elec tronically Signed By: Sammy QUEZADA MD\.br\Date and Time Signed: 12/14/22 16:36 EDT ONC - Otheron 12-12-2022 ONC - Other [id number]#1.00CD:1 27 Normal [facility] ONC - Otheron 12-04-2022 ONC - Other [id number]#1.00CD:1 27 Normal [facility] ONC - Otheron 11-21-2022 ONC - Other [id number]#1.00CD:1 27 Normal [facility] XR Pelvis 1 or 2 Viewson XR Pelvis 1 or 2 Views Normal [facility] RAD - MISCon 11-20-2022 RAD - MISC [id number]#1.00CD:1 27 [facility] Family Medicine Office/Clini c Noteon 11-07-2022 Family Medicine Office/Clinic Note [facility] Comment on above: Result Comment: Elec tronically Signed By: Sammy QUEZADA MD\.br\Date and Time Signed: 11/06/22 22:21 EDT Consultation Noteon 11-07-19 23 Consultation Note [facility] Comment on above: Result Comment: Elec tronically Signed By: Gavino Erickson DO\.br\Date and Time Signed: 11/06/22 07:17 EDT Discharge Documentationon Discharge Documentation [id number]#1.00CD:1 27 [facility] Message from Medicareon 10-20 Message from Medicare [id number]#1.00CD:1 27 [facility] Transfer Documentson 023 Transfer Documents [id number]#1.00CD:1 27 [facility] Insurance Correspondence Off iceon 11-05-2022 Insurance Correspondence Office [id number]#1.00CD:12 7 [facility] Inpatient Clinical Summaryon 11-04-2022 Inpatient Clinical Summary [facility] Inpatient Patient Summaryon 11-04-2022 Inpatient Patient Summary [facility] Inpatient Patient Summary [facility] 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 Note - Attila e Manageron 11-04-2022 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 Note - Clam Shucking Machine Tender [facility] Comment on above: Result Comment: Elec tronically Signed By: Florence Ortega\.br\Date and Time Signed: 11/04/22 13:07 EDT CHEMISTRYOrdered By: SYSTEM SYSTEM on 11-03-2022 25-hydroxyvitamin D3 [Mass/Vol] ng/mL Low 30.0 - 100.0 ng/mL [facility] Remisol 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 Note - Attila e Manageron 11-03-2022 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 Note - Clam Shucking Machine Tender Normal [facility] Comment on above: Result Comment: Elec tronically Signed By: Florence Ortega\.br\Date and Time Signed: 11/03/22 10:38 EDT Progress Note-Physicianon Progress Note-Physician Normal [facility] Comment on above: Result Comment: Elec tronically Signed By: Trevor HANKS, Wyatt\.br\Date and Time Signed: 11/03/22 08:08 EDT RPR with Conf Rfxon 11-04-19 23 Reagin Ab RPR Ql (S) Non-Reactive Invalid Interpretation Code Non Reactive [facility] Comment on above: Result Comment: Perf ormed at: [facility] [address] [id number] PhD [place] Avelar Performed By: #### 1 6539655, 541695123, 9394726, 5854674 ####[facility] [address] [place] [address] Vitamin D 25 Hydroxyon 11-03 25-hydroxyvitamin D3 [Mass/Vol] ng/mL Low 30.0-100.0 [facility] Comment on above: Result Comment: Vit beltran D deficiency has been defined as a level of serum 25-OH vitamin D less than 20 ng/mL (1,2) by the [place] [employer] and an Endocrine Society practice guideline. The Endocrine Society further defined vitamin D insufficiency as a level between 21 and 29 ng/mL (2). 1. IOM ([place] [employer]). 2010. Dietary reference intakes for calcium and D. [place]: The National Academies Press. 2. Katlin [place], [place], Jarad DUKE, et al. Evaluation, treatment, and prevention of vitamin D deficiency: an Endocrine Society clinical practice guideline. JCEM. 2010; 96 (7):1911-30. Performed By: #### 5 [id number] ####[facility] [address] [place] [address] Auto Diffon 11-02-2022 Basophils/100 WBC (Bld) 1.2 % Normal 0.0-2.0 [facility] Comment on above: Order Comment: Order Added by Faviola Expert. Performed By: #### 2 334613, 24069906, 4172634, 19010847, 1659735, 3818600 ####[address] [place] [address] Basophils/Leukocytes Auto (Bld) [Pure # fraction] 0.1 E9/L Normal 0.0-0.2 [facility] Comment on above: Order Comment: Order Added by Discern Expert. Performed By: #### 2 194279, 63216950, 0103942, 54213874, 1082269, 1511444 ####[address] [place] [address] Eosinophils/100 WBC (Bld) 3.3 % Normal 0.0-8.0 [facility] Comment on above: Order Comment: Order Added by Faviola Expert. Performed By: #### 2 736560, 97200878, 8082203, 15457484, 1450749, 3963054 ####[address] [address] Eosinophils/Leukocytes Auto (Bld) [Pure # fraction] 0.2 E9/L Normal 0.0-0.5 [facility] Comment on above: Order Comment: Order Added by Faviola Expert. Performed By: #### 2 444244, 70660087, 8043270, 56690130, 8136918, 7254953 ####[address] [address] Lymphocytes/100 WBC (Bld) 24.6 % Normal 14.0-50.0 [facility] Comment on above: Order Comment: Order Added by Faviola Expert. Performed By: #### 2 976108, 78015893, 4940920, 17210217, 0712083, 0398667 ####[address] [place] [address] Lymphocytes/Leukocytes Auto (Bld) [Pure # fraction] 1.6 E9/L Normal 1.0-4.0 [facility] Comment on above: Order Comment: Order Added by Discern Expert. Performed By: #### 2 432003, 29708756, 3023680, 52753645, 6963380, 8309686 ####[address] [place] [address] Monocytes/100 WBC (Bld) 5.0 % Normal 4.0-14.0 [facility] Comment on above: Order Comment: Order Added by Discern Expert. Performed By: #### 2 355922, 01757493, 4788311, 39819580, 5696263, 4059400 ####[facility] [address] [place] [address] Monocytes/Leukocytes Auto (Bld) [Pure # fraction] 0.3 E9/L Normal 0.2-1.0 [facility] Comment on above: Order Comment: Order Added by Faviola Expert. Performed By: #### 2 223548, 32576511, 2562651, 88930022, 4863875, 9955190 ####[address] [address] Neutrophils/100 WBC (Bld) 65.9 % Normal 36.0-75.0 [facility] Comment on above: Order Comment: Order Added by Faviola Expert. Performed By: #### 2 260282, 86338235, 1074054, 24437701, 1459637, 2729810 ####[address] [place] [address] Neutrophils/Leukocytes Auto (Bld) [Pure # fraction] 4.4 E9/L Normal 2.0-7.5 [facility] Comment on above: Order Comment: Order Added by Faviola Expert. Performed By: #### 2 777050, 59619673, 1072550, 36671347, 4816513, 2222972 ####[facility] [address] [place] [address] BMPon 11-02-2022 Creatinine [Mass/Vol] 1.3 mg/dL Normal 0.5-1.3 [facility] Comment on above: Performed By: #### 2 370712, 75766702, 5559609, 35749430, 5890101, 3711689 ####[facility] [address] [place] [address] Urea nitrogen [Mass/Vol] 26 mg/dL High 5-21 [facility] Comment on above: Performed By: #### 2 949285, 46174678, 3035210, 38709305, 4152561, 3446534 ####[facility] [address] [place] [address] Urea nitrogen/Creatinine [Mass ratio] 20 No Units Normal 10-20 [facility] Comment on above: Performed By: #### 2 027196, 51435207, 4265299, 88445920, 2529266, 6163557 ####[facility] [address] [place] [address] Anion gap [Moles/Vol] 15 mmol/L Normal 6-16 [facility] Comment on above: Performed By: #### 2 718674, 62942574, 4731458, 96396178, 7294377, 0451848 ####[facility] [address] [place] [address] Calcium [Mass/Vol] 9.1 mg/dL Normal 8.9-11.1 [facility] Comment on above: Performed By: #### 2 119664, 21252881, 9057207, 01400231, 7193790, 7101917 ####[facility] [address] [place] [address] Chloride [Moles/Vol] 105 mmol/L Normal 101-111 [facility] Comment on above: Performed By: #### 2 810330, 99214985, 1541493, 87201868, 0404788, 0446584 ####[facility] [address] [place] [address] CO2 [Moles/Vol] 22 mmol/L Normal 21-31 [facility] Comment on above: Performed By: #### 2 997342, 29339786, 3842907, 38253399, 9974672, 1332560 ####[facility] [address] [place] [address] Glucose [Mass/Vol] 130 mg/dL Normal 55-199 [facility] Comment on above: Result Comment: If t his glucose result represents a fasting glucose, interpretation should refer to the following reference range: 55-99 mg/dL Performed By: #### 2 828720, 34340911, 1403962, 14617678, 6642653, 5380140 ####[facility] [address] [place] [address] Potassium [Moles/Vol] 4.2 mmol/L Normal 3.5-5.3 [facility] Comment on above: Performed By: #### 2 563694, 59980766, 6871981, 54157604, 3657549, 0582982 ####[facility] [address] [place] [address] Sodium [Moles/Vol] 138 mmol/L Normal 135-145 [facility] Comment on above: Performed By: #### 2 725557, 49273811, 7760743, 31475555, 1145441, 4587013 ####[facility] [address] [place] [address] CBC w/ Auto Diffon 3 Erythrocyte distribution width (RBC) [Ratio] 16.3 % High 10.9-14.2 [facility] Comment on above: Performed By: #### 2 688102, 77309728, 6301641, 62091544, 2879989, 2887326 ####[facility] [address] [place] [address] Hematocrit (Bld) [Volume fraction] 36.5 % Normal 34.0-46.0 [facility] Comment on above: Performed By: #### 2 915681, 86847125, 9480780, 48560291, 5905989, 9394179 ####[facility] [address] [place] [address] Hemoglobin (Bld) [Mass/Vol] 12.1 g/dL Normal 12.0-16.0 [facility] Comment on above: Performed By: #### 2 082685, 06704275, 2502738, 66494524, 3253293, 4060481 ####[facility] [address] [place] [address] MCH (RBC) [Entitic mass] 32.9 pg Normal 27.0-34.0 [facility] Comment on above: Performed By: #### 2 438841, 05954691, 4527104, 00133065, 7955233, 4169365 ####[facility] [address] [place] [address] MCHC (RBC) [Mass/Vol] 33.1 g/dL Normal 31.4-36.0 [facility] Comment on above: Performed By: #### 2 543808, 09176030, 4768772, 93217255, 2582567, 6548677 ####[address] [address] MCV (RBC) [Entitic vol] 99.3 fL Normal 80.0-100.0 [facility] Comment on above: Performed By: #### 2 071289, 73878633, 8178746, 08032447, 7492688, 8158498 ####[address] [address] Platelet mean volume (Bld) [Entitic vol] 7.3 fL Normal 6.4-10.8 [facility] Comment on above: Performed By: #### 2 418680, 00440111, 5055296, 08069919, 5750604, 6968017 ####[address] [place] [address] Platelets (Bld) [#/Vol] 229.0 E9/L Normal 150. 0-500. 0 [facility] Comment on above: Performed By: #### 2 570610, 61205940, 0138085, 55278335, 9966536, 4452688 ####[facility] [address] [place] [address] RBC (Bld) [#/Vol] 3.7 E12/L Low 4.3-5.9 [facility] Comment on above: Performed By: #### 2 776606, 47307756, 5818513, 64106775, 3785177, 6650008 ####[facility] [address] [place] [address] WBC corrected for nucl RBC Auto (Bld) [#/Vol] 6.6 E9/L Normal 4.0-11.0 [facility] Comment on above: Performed By: #### 2 465428, 87097058, 1863579, 66745666, 3528499, 9445814 ####[facility] [address] [place] [address] CT Pelvis w/o Contraston CT Pelvis w/o Contrast Normal [facility] ED Clinical Summaryon 2022 ED Clinical Summary Normal [facility] ED Note-Physicianon 11-03-19 ED Note-Physician Radiologist has read the x-ray of the sacrum and there is discrepancy. He is reading he has a left pubic rami fracture. The patient has been admitted to the hospital.The hospitalist notified. Normal [facility] Comment on above: Result Comment: Elec tronically Signed By: Alok Cai M.D.\.br\Date and Time Signed: 11/02/22 07:41 EDT ED Note-Physician Normal [facility] Comment on above: Result Comment: Elec tronically Signed By: Kelly Meredith DO\.br\Date and Time Signed: 11/02/22 00:27 EDT ED Patient Education Noteon 11-02-2022 ED Patient Education Note Normal [facility] ED Patient Summaryon 023 ED Patient Summary Normal [facility] ED Traumaon 11-02-2022 ED Trauma [id number]#[id number]:1 27 Normal [facility] FolateOrdered By: SYSTEM SYS TEM on 11-02-2022 Folate [Mass/Vol] 11.4 ng/mL Normal >=6.7 [facility] Remisol Comment on above: Performed By: #### 1 7475088, 404877216, 2322526, 5132160 ####[facility] [address] [place] [address] Hep Func Panelon 11-02-2022 Albumin [Mass/Vol] 3.5 g/dL Normal 3.3-5.0 [facility] Comment on above: Performed By: #### 2 971107, 52961555, 8067334, 77526611, 2044781, 1265980 ####[facility] [address] [place] [address] Albumin/Globulin (S) [Mass conc ratio] 1.0 Low 1.1-2.2 [facility] Comment on above: Performed By: #### 2 240619, 50777975, 4754042, 96845354, 2492610, 6479034 ####[facility] [address] [place] [address] ALP [Catalytic activity/Vol] 110 Int._Unit/L High 21-98 [facility] Comment on above: Performed By: #### 2 112743, 15628256, 9033639, 91592933, 0955644, 2544835 ####[facility] [address] [place] [address] ALT No additional P-5'-P [Catalytic activity/Vol] 13 Int._Unit/L Normal 6-46 [facility] Comment on above: Performed By: #### 2 108058, 68559585, 5218459, 94840643, 6031452, 6445769 ####[facility] [address] [place] [address] AST [Catalytic activity/Vol] 20 Int._Unit/L Normal 5-43 [facility] Comment on above: Performed By: #### 2 487061, 23438840, 4902954, 22350795, 6317299, 9719615 ####[facility] [address] [place] [address] Bilirubin [Mass/Vol] 0.9 mg/dL Normal 0.0-1.1 [facility] Comment on above: Performed By: #### 2 521437, 03572035, 3118035, 03262948, 9304330, 4028847 ####[facility] [address] [place] [address] Bilirubin.direct [Mass/Vol] 0.2 mg/dL Normal 0.1-0.4 [facility] Comment on above: Performed By: #### 2 042512, 90723177, 1687470, 31541976, 0291775, 9483221 ####[facility] [address] [place] [address] Bilirubin.indirect [Mass or moles/Vol] 0.7 mg/dL Normal 0.1-0.9 [facility] Comment on above: Performed By: #### 2 627148, 44751742, 9964225, 59451438, 3832404, 6290980 ####[facility] [address] [place] [address] Globulin (S) [Mass/Vol] 3.4 g/dL Normal 1.4-4.0 [facility] Comment on above: Performed By: #### 2 854422, 01848076, 7760173, 09342153, 0757744, 2775947 ####[facility] [address] [place] [address] Protein [Mass/Vol] 6.9 g/dL Normal 6.0-7.8 [facility] Comment on above: Performed By: #### 2 983063, 88886300, 7970332, 94726999, 0435580, 3433098 ####[facility] [address] [place] [address] Insurance Correspondence Off 11-02-2022 Insurance Correspondence Office [id number]#1.00CD:12 7 Normal [facility] 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 Note - Attila e Manageron 11-02-2022 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 Note - Clam Shucking Machine Tender Normal [facility] Comment on above: Result Comment: Elec tronically Signed By: Florence Ortega\.br\Date and Time Signed: 11/02/22 14:23 EDT 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 Note - Rafat n 11-02-2022 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 Note - OT Normal [facility] 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 Note - Soc ial Workeron 11-02-2022 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 Note - Legal Transcriber Normal [facility] Monitor Recordon 11-02-2022 Monitor Record [id number]:1 27 Normal [facility] Progress Note-Physicianon Progress Note-Physician Normal [facility] Comment on above: Result Comment: Elec tronically Signed By: Gavino Erickson DO\.br\Date and Time Signed: 11/02/22 15:25 EDT Progress Note-Physician Normal [facility] Comment on above: Result Comment: Elec tronically Signed By: Trevor HANKS, Wyatt\.br\Date and Time Signed: 11/02/22 12:22 EDT Reference Laboratory Testing Ordered By: Generated DomainUser on 11-02-2022 Reagin Ab RPR Ql (S) Non-Reactive Invalid Interpretation Code Non Reactive [facility] SendOutsSS Comment on above: Result Comment: Perf ormed at: [facility] [address] [id number] PhD [place] Avelar TSH With T4fr ReflexOrdered By: SYSTEM SYSTEM on 11-02-2022 TSH Qn 0.93 m[IU]/L Normal 0.34-5.60 [facility] Remisol Comment on above: Performed By: #### 1 [id number], [id number], 7867975, 8393994 ####[facility] [address] [place] [address] Troponin 0 Hr.on 11-02-2022 Troponin I.cardiac [Mass/Vol] 7.50 pg/mL Low 10.10-27.1 0 [facility] Comment on above: Result Comment: The 95% CI (Confidence Interval) PPV (Positive Predictive Value) for myocardial infarction in females is 38 pg/mL, in males 51 pg/mL. The results should be used in conjunction with clinical conditions of myocardial infarction.(Access High Sensitivity Troponin I Instructions For Use, Gaby [place], November 2017) Performed By: #### 2 495286, [id number], 3081354, 59815163, 4980952, 3078408 ####[facility] [address] [place] [address] UA With Cult Reflexon 2022 Bacteria LM Ql (Urine sed) TRACE Normal Trace [facility] Comment on above: Order Comment: Urina ry Catheter Insertion triggered Urinalysis With Culture Reflex order by discern. Performed By: #### 1 [id number] ####[facility] [address] [place] [address] Bilirubin Ql (U) Negative Normal Negative [facility] Comment on above: Order Comment: Urina ry Catheter Insertion triggered Urinalysis With Culture Reflex order by discern. Performed By: #### 1 8410466 ####[facility] [address] [place] [address] Clarity (U) CLEAR Normal Clear [facility] Comment on above: Order Comment: Urina ry Catheter Insertion triggered Urinalysis With Culture Reflex order by discern. Performed By: #### 1 1158268 ####[facility] [address] [place] [address] Color (U) YELLOW Normal Yellow [facility] Comment on above: Order Comment: Urina ry Catheter Insertion triggered Urinalysis With Culture Reflex order by discern. Performed By: #### 1 5059234 ####[facility] [address] [place] [address] Epithelial cells.squamous LM.HPF (Urine sed) [#/Area] 3-4 Normal 0-2 [facility] Comment on above: Order Comment: Urina ry Catheter Insertion triggered Urinalysis With Culture Reflex order by discern. Performed By: #### 1 4198060 ####[facility] [address] [place] [address] Glucose Test strip (U) [Mass/Vol] Negative Normal Negative [facility] Comment on above: Order Comment: Urina ry Catheter Insertion triggered Urinalysis With Culture Reflex order by discern. Performed By: #### 1 [id number] ####[facility] [address] [place] [address] Hemoglobin Ql (U) TRACE Abnormal Negative [facility] Comment on above: Order Comment: Urina ry Catheter Insertion triggered Urinalysis With Culture Reflex order by discern. Performed By: #### 1 0551578 ####[facility] [address] [place] [address] Ketones (U) [Mass/Vol] TRACE Abnormal Negative [facility] Comment on above: Order Comment: Urina ry Catheter Insertion triggered Urinalysis With Culture Reflex order by discern. Performed By: #### 1 1585639 ####[address] [address] [place].plasma/[place]. RBC (Bld) [Mass ratio] 4-20 Normal 0-3 [facility] Comment on above: Order Comment: Urina ry Catheter Insertion triggered Urinalysis With Culture Reflex order by discern. Performed By: #### 1 9556098 ####[address] [address] Nitrite Ql (U) Negative Normal Negative [facility] Comment on above: Order Comment: Urina ry Catheter Insertion triggered Urinalysis With Culture Reflex order by discern. Performed By: #### 1 0588497 ####[address] [address] pH (U) 6.0 [pH] Invalid Interpretation Code 5.0-9.0 [facility] Comment on above: Order Comment: Urina ry Catheter Insertion triggered Urinalysis With Culture Reflex order by discern. Performed By: #### 1 0559398 ####[address] [address] Protein (U) [Mass/Vol] TRACE Abnormal Negative [facility] Comment on above: Order Comment: Urina ry Catheter Insertion triggered Urinalysis With Culture Reflex order by discern. Performed By: #### 1 7354804 ####[address] [address] Specific gravity (U) [Rel density] 1.025 Invalid Interpretation Code 1.005-1.03 0 [facility] Comment on above: Order Comment: Urina ry Catheter Insertion triggered Urinalysis With Culture Reflex order by discern. Performed By: #### 1 7467762 ####[address] [address] Type of Urine collection method Catheter Normal [facility] Comment on above: Order Comment: Urina ry Catheter Insertion triggered Urinalysis With Culture Reflex order by discern. Performed By: #### 1 4737375 ####[address] [address] Urobilinogen Qn (U) 1.0 {Tj'U}/dL Normal 0.0-1.0 [facility] Comment on above: Order Comment: Urina ry Catheter Insertion triggered Urinalysis With Culture Reflex order by discern. Performed By: #### 1 6191628 ####[address] [address] WBC Auto Ql (U) Negative Normal Negative [facility] Comment on above: Order Comment: Urina ry Catheter Insertion triggered Urinalysis With Culture Reflex order by discern. Performed By: #### 1 6589225 ####[address] [address] WBC LM.HPF (Urine sed) [#/Area] 0-5 Normal 0-5 [facility] Comment on above: Order Comment: Urina ry Catheter Insertion triggered Urinalysis With Culture Reflex order by discern. Performed By: #### 1 9049031 ####[address] [address] Bilirubin Ql (U) Negative Normal Negative [facility] Comment on above: Performed By: #### 1 9634742 ####[address] [address] Clarity (U) SL CLOUDY Invalid Interpretation Code [facility] Comment on above: Performed By: #### 1 5060292 ####[facility] [address] [place] [address] Color (U) YELLOW Normal Yellow [facility] Comment on above: Performed By: #### 1 7860590 ####[address] [address] Epithelial cells.squamous LM.HPF (Urine sed) [#/Area] 0-2 Normal 0-2 [facility] Comment on above: Performed By: #### 1 3488621 ####[address] [address] Glucose Test strip (U) [Mass/Vol] Negative Normal Negative [facility] Comment on above: Performed By: #### 1 7013236 ####[address] [address] Hemoglobin Ql (U) 3+ Abnormal Negative [facility] Comment on above: Performed By: #### 1 1034852 ####[address] [address] Ketones (U) [Mass/Vol] TRACE Invalid Interpretation Code Negative [facility] Comment on above: Performed By: #### 1 8009314 ####[address] [address] [place].plasma/[place]. RBC (Bld) [Mass ratio] 21-30 Abnormal 0-3 [facility] Comment on above: Performed By: #### 1 3723914 ####[address] [address] Mucus Ql (Urine sed) 1+ Normal [facility] Comment on above: Performed By: #### 1 5326553 ####[address] [address] Nitrite Ql (U) Negative Normal Negative [facility] Comment on above: Performed By: #### 1 4559382 ####[address] [address] pH (U) 6.0 [pH] Invalid Interpretation Code 5.0-9.0 [facility] Comment on above: Performed By: #### 1 4650795 ####[facility] [address] [place] [address] Protein (U) [Mass/Vol] 1+ Abnormal Negative Fi [facility] Comment on above: Performed By: #### 1 6464085 ####[address] [address] Specific gravity (U) [Rel density] 1.025 Invalid Interpretation Code 1.005-1.03 0 [facility] Comment on above: Performed By: #### 1 4862628 ####[address] [address] Type of Urine collection method Clean Catch Normal [facility] Comment on above: Performed By: #### 1 9414629 ####[address] [address] Urobilinogen Qn (U) 2.0 {Tj'U}/dL Abnormal 0.0-1.0 [facility] Comment on above: Performed By: #### 1 4396683 ####[facility] [address] [place] [address] WBC Auto Ql (U) Negative Normal Negative [facility] Comment on above: Performed By: #### 1 1824096 ####[address] [address] WBC LM.HPF (Urine sed) [#/Area] 0-5 Normal 0-5 [facility] Comment on above: Performed By: #### 1 2482448 ####[facility] [address] [place] [address] URINALYSISOrdered By: Dianne Villa on 11-02-2022 Bacteria LM Ql (Urine sed) Trace /HPF Normal Trace/HPF FT UA Auto SS Bilirubin Ql (U) Negative (11/02/22 5:30 PM) Normal Negative FT UA Auto SS Clarity (U) Clear (11/02/22 5:30 PM) Normal Clear FT UA Auto SS Color (U) Yellow (11/02/22 [...] Interpretation Code Negative [facility] UA Auto SS [place].plasma/[place]. RBC (Bld) [Mass ratio] 4-20 /HPF Normal [...] [facility] UA Auto SS Urobilinogen Qn (U) 1.2772883 {Tj'U}/dL Normal 0.0 - 1.0 EU/dL [facility] UA Auto SS WBC Auto Ql (U) Negative (11/02/22 5:30 PM) Normal Negative [facility] UA Auto SS WBC LM.HPF (Urine sed) [#/Area] 0-5 /HPF Normal 0-5/HPF [facility] UA Auto SS Vit [id number] By: SYSTEM SY STEM on 11-02-2022 Cobalamin (Vitamin B12) [Mass/Vol] 470 pg/mL Normal 50-1500 [facility] Remisol Comment on above: Performed By: #### 1 5072668, [id number], 6776844, 6103457 ####[facility] [address] [place] [address] XR Chest Single Viewon 11-02 XR Chest Single View Normal Fish [facility] XR Pelvis 1 or 2 Viewson XR Pelvis 1 or 2 Views Normal Fi [facility] XR Sacrum and Coccyx Min 2 V iewson 11-02-2022 XR Sacrum and Coccyx Min 2 Views Normal [facility] eGFRon 11-02-2022 GFR/1.73 sq M.predicted among non-blacks MDRD (S/P/Bld) [Vol rate/Area] 43 mL/min/1.73 m2 Low >=59 [facility] Comment on above: Order Comment: Order added by Discern Expert. 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 Kidney failure is indicated at less than 15 mL/min/1.73m2. Performed By: #### 2 126294, 30715197, 3989472, 14693871, 9062881, 4889515 ####[facility] [address] [place] [address] CHEMISTRYOrdered By: SYSTEM SYSTEM on 11-01-2022 Albumin [...] - 31 mmol/L FT Remisol Creatinine [Mass/Vol] 1.3 mg/dL Normal 0.5 - 1.3 mg/dL [facility] Remisol GFR/1.73 sq M.predicted among non-blacks MDRD (S/P/Bld) [Vol rate/Area] 43 mL/min/1.73 m2 Low >=59mL/min /1.73 m2 [facility] Chem S Globulin (S) [Mass/Vol] 3.4 g/dL Normal 1.4 - 4.0 gm/dL FT Remisol Glucose [Mass/Vol] 130 mg/dL Normal 55 - 199 mg/dL [facility] Potassium [Moles/Vol] 4.2 mmol/L Normal 3.5 - 5.3 mmol/L FT [facility] Protein [Mass/Vol] 6.9 g/dL Normal 6.0 - 7.8 gm/dL FT [facility] Sodium [Moles/Vol] 138 mmol/L Normal 135 - 145 mmol/L FT [facility] Troponin I.cardiac [Mass/Vol] 7.50 pg/mL Low 10.10 - 27.10 pg/mL FT [facility] Urea nitrogen [Mass/Vol] 26 mg/dL High 5 - 21 mg/dL FT [facility] Urea nitrogen/Creatinine [Mass ratio] 20 mg/mg Normal 10 - 20 FT Remisol Consent for Treatmenton 10-20 Consent for Treatment [id number]#[id number]:12 7 Normal [facility] HEMATOLOGYOrdered By: SYSTEM SYSTEM on 11-01-2022 Basophils/100 WBC (Bld) 1.2 % Normal 0.0 - 2.0 % [facility] HemeAutoSS Basophils/Leukocytes Auto (Bld) [Pure # fraction] [...] Interpretation Code Negative [facility] UA Auto SS [place].plasma/[place]. RBC (Bld) [Mass ratio] 21-30 /HPF Invalid [...] Desc Clean Catch (11/01/22 11:20 PM) Normal [facility] UA Auto SS Urobilinogen Qn (U) 2.4661112 {Tj'U}/dL Inv alid Interpretation Code 0.0 - 1.0 EU/dL FT UA Auto SS WBC Auto Ql (U) Negative (11/01/22 11:20 PM) Normal Negative FT UA Auto SS WBC LM.HPF (Urine sed) [#/Area] 0-5 /HPF Normal 0-5/HPF [facility] UA Auto SS ONC - Otheron 10-30-2022 ONC - Other [id number]#1.00CD:1 27 Normal [facility] 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 Note - Soc ial Workeron 10-05-2022 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 Note - Legal Transcriber Normal [facility] Oncology Progress Noteon Oncology Progress Note Normal [facility] Consent for Treatmenton Consent for Treatment [id number]#[id number]:12 7 Normal [facility] [place] 27 29on 09-26-2022 Cancer Ag 27-29 Qn 17.7 unit/mL Invalid Interpretation Code 0.0-38.6 [facility] Comment on above: Result Comment: Routezillaaur Immunochemiluminometric Methodology (ICMA)Values obtained with different assay methods or kits cannot be usedinterchangeably. Results cannot be interpreted as absolute evidenceof the presence or absence of malignant disease.Performed at: [facility] [id number] [place], [place] [id number] PhD [place] Avelar Performed By: #### 2 608562, 51779989, 7744643, 7114494, 01526179 ####[facility] [address] [place] [address] Auto Diffon 09-25-2022 Basophils/100 WBC (Bld) 3.0 % High 0.0-2.0 [facility] Comment on above: Order Comment: Order Added by Discern Expert. Performed By: #### 2 404819, 74058656, 3505603, 5449235, 56740990 ####[address] [address] Basophils/Leukocytes Auto (Bld) [Pure # fraction] 0.1 E9/L Normal 0.0-0.2 [facility] Comment on above: Order Comment: Order Added by Discern Expert. Performed By: #### 2 299005, 82965911, 1841173, 5422711, 56474970 ####[address] [address] Eosinophils/100 WBC (Bld) 3.1 % Normal 0.0-8.0 [facility] Comment on above: Order Comment: Order Added by Discern Expert. Performed By: #### 2 374857, 40850033, 6045395, 7010886, 52122305 ####[address] [address] Eosinophils/Leukocytes Auto (Bld) [Pure # fraction] 0.1 E9/L Normal 0.0-0.5 [facility] Comment on above: Order Comment: Order Added by Discern Expert. Performed By: #### 2 346332, 79743884, 6097661, 5899160, 23495888 ####[address] [address] Lymphocytes/100 WBC (Bld) 37.1 % Normal 14.0-50.0 [facility] Comment on above: Order Comment: Order Added by Discern Expert. Performed By: #### 2 752818, 45378400, 3999484, 3649264, 32899875 ####[address] [address] Lymphocytes/Leukocytes Auto (Bld) [Pure # fraction] 1.3 E9/L Normal 1.0-4.0 [facility] Comment on above: Order Comment: Order Added by Discern Expert. Performed By: #### 2 523691, 87700754, 0106961, 9068418, 14541374 ####[address] [address] Monocytes/100 WBC (Bld) 8.5 % Normal 4.0-14.0 [facility] Comment on above: Order Comment: Order Added by Discern Expert. Performed By: #### 2 193341, 38002662, 1993278, 2169366, 26613301 ####[place] [address] [place] [address] Monocytes/Leukocytes Auto (Bld) [Pure # fraction] 0.3 E9/L Normal 0.2-1.0 [facility] Comment on above: Order Comment: Order Added by Discern Expert. Performed By: #### 2 521612, 20908051, 1835241, 2601501, 40729704 ####[address] [address] Neutrophils/100 WBC (Bld) 48.3 % Normal 36.0-75.0 [facility] Comment on above: Order Comment: Order Added by Discern Expert. Performed By: #### 2 844195, 24531751, 2605773, 0784336, 78206050 ####[address] [address] Neutrophils/Leukocytes Auto (Bld) [Pure # fraction] 1.7 E9/L Low 2.0-7.5 [facility] Comment on above: Order Comment: Order Added by Discern Expert. Performed By: #### 2 448917, 35457710, 0381975, 7292485, 33710684 ####[address] [address] CBC w/ Auto Diffon 3 Erythrocyte distribution width (RBC) [Ratio] 16.6 % High 10.9-14.2 [facility] Comment on above: Performed By: #### 2 015110, 49424684, 0747797, 6280091, 74843670 ####[address] [address] Hematocrit (Bld) [Volume fraction] 29.4 % Low 34.0-46.0 [facility] Comment on above: Performed By: #### 2 059871, 88141579, 9559215, 3155651, 24513056 ####[facility] [address] [place] [address] Hemoglobin (Bld) [Mass/Vol] 10.0 g/dL Low 12.0-16.0 [facility] Comment on above: Performed By: #### 2 709522, 54149444, 1021011, 4502910, 67021678 ####[address] [address] MCH (RBC) [Entitic mass] 34.5 pg High 27.0-34.0 [facility] Comment on above: Performed By: #### 2 690862, 40749186, 3088103, 9187251, 43294074 ####[address] [address] MCHC (RBC) [Mass/Vol] 34.0 g/dL Normal 31.4-36.0 [facility] Comment on above: Performed By: #### 2 535439, 78011748, 8764614, 8359259, 74925619 ####[address] [address] MCV (RBC) [Entitic vol] 101.5 fL High 80.0-100.0 [facility] Comment on above: Performed By: #### 2 563341, 13061285, 1239634, 1104465, 27650647 ####[address] [address] Platelet mean volume (Bld) [Entitic vol] 8.0 fL Normal 6.4-10.8 [facility] Comment on above: Performed By: #### 2 745724, 12348622, 8750495, 4002678, 69549906 ####[address] [address] Platelets (Bld) [#/Vol] 177.0 E9/L Normal 150. 0-500. 0 [facility] Comment on above: Performed By: #### 2 898808, 35270872, 8230249, 6613977, 70580450 ####[facility] [address] [place] [address] RBC (Bld) [#/Vol] 2.9 E12/L Low 4.3-5.9 [facility] Comment on above: Performed By: #### 2 346201, 13508632, 7572546, 7120519, 90643286 ####[facility] [address] [place] [address] WBC corrected for nucl RBC Auto (Bld) [#/Vol] 3.4 E9/L Low 4.0-11.0 [facility] Comment on above: Performed By: #### 2 251099, 75944769, 6453707, 3014667, 28534994 ####[facility] [address] [place] [address] CHEMISTRYOrdered By: SYSTEM SYSTEM on 09-25-2022 Albumin [...] 1.1 mg/dL Normal 0.5 - 1.3 mg/dL [facility] Remisol GFR/1.73 sq M.predicted among non-blacks MDRD (S/P/Bld) [Vol rate/Area] 53 mL/min/1.73 m2 Low >=59mL/min /1.73 m2 [facility] Chem S Globulin (S) [Mass/Vol] 4.0 g/dL Normal 1.4 - 4.0 gm/dL FT [facility] Glucose [Mass/Vol] 134 mg/dL Normal 55 - 199 mg/dL FT [facility] Potassium [Moles/Vol] 3.8 mmol/L Normal 3.5 - 5.3 mmol/L [facility] Remisol Protein [Mass/Vol] 7.1 g/dL Normal 6.0 - 7.8 gm/dL [facility] Remisol Sodium [Moles/Vol] 140 mmol/L Normal 135 - 145 mmol/L [facility] Remisol Urea nitrogen [Mass/Vol] 24 mg/dL High 5 - 21 mg/dL [facility] Remisol Urea nitrogen/Creatinine [Mass ratio] 22 mg/mg High 10 - 20 [facility] Remisol CMPon 09-25-2022 Albumin [Mass/Vol] 3.1 g/dL Low 3.3-5.0 [facility] Comment on above: Performed By: #### 2 535741, 37455985, 8596394, 1064354, 48624622 ####[facility] [address] [place] [address] Albumin/Globulin (S) [Mass conc ratio] 0.8 Low 1.1-2.2 [facility] Comment on above: Performed By: #### 2 901668, 21546190, 4328801, 2441354, 08716768 ####[facility] [address] [place] [address] ALP [Catalytic activity/Vol] 131 Int._Unit/L High 21-98 [facility] Comment on above: Performed By: #### 2 082769, 25345303, 8690663, 2129288, 77326463 ####[facility] [address] [place] [address] ALT No additional P-5'-P [Catalytic activity/Vol] 13 Int._Unit/L Normal 6-46 [facility] Comment on above: Performed By: #### 2 690524, 78928177, 8918881, 6314251, 74366233 ####[facility] [address] [place] [address] Anion gap [Moles/Vol] 5 mmol/L Low 6-16 [facility] Comment on above: Performed By: #### 2 062286, 81005967, 7959857, 2781306, 06648845 ####[facility] [address] [address] AST [Catalytic activity/Vol] 16 Int._Unit/L Normal 5-43 [facility] Comment on above: Performed By: #### 2 216180, 84925895, 0502914, 3354177, 76309332 ####[facility] [address] [address] Bilirubin [Mass/Vol] 0.5 mg/dL Normal 0.0-1.1 [facility] Comment on above: Performed By: #### 2 058322, 84731186, 2078690, 3615307, 02466439 ####[facility] [address] [address] Calcium [Mass/Vol] 8.9 mg/dL Normal 8.9-11.1 [facility] Comment on above: Performed By: #### 2 289263, 59723076, 4927414, 6980510, 48589539 ####[facility] [address] [place] [address] Chloride [Moles/Vol] 114 mmol/L High 101-111 [facility] Comment on above: Performed By: #### 2 593067, 90090312, 1095890, 3135891, 65087895 ####[facility] [address] [address] CO2 [Moles/Vol] 25 mmol/L Normal 21-31 [facility] Comment on above: Performed By: #### 2 073955, 29173829, 1733851, 8655801, 81504758 ####[facility] [address] [place] [address] Creatinine [Mass/Vol] 1.1 mg/dL Normal 0.5-1.3 [facility] Comment on above: Performed By: #### 2 674892, 37134354, 1314662, 2962697, 25783017 ####[facility] [address] [place] [address] Globulin (S) [Mass/Vol] 4.0 g/dL Normal 1.4-4.0 [facility] Comment on above: Performed By: #### 2 638660, 09625211, 7754329, 4761834, 90986166 ####[facility] [address] [place] [address] Glucose [Mass/Vol] 134 mg/dL Normal 55-199 [facility] Comment on above: Result Comment: If t his glucose result represents a fasting glucose, interpretation should refer to the following reference range: 55-99 mg/dL Performed By: #### 2 825816, 12884653, 2691005, 6173437, 20328893 ####[facility] [address] [place] [address] Potassium [Moles/Vol] 3.8 mmol/L Normal 3.5-5.3 [facility] Comment on above: Performed By: #### 2 173218, 69950312, 2792025, 2093709, 38143771 ####[facility] [address] [place] [address] Protein [Mass/Vol] 7.1 g/dL Normal 6.0-7.8 [facility] Comment on above: Performed By: #### 2 565240, 33809305, 8988573, 1983808, 18570202 ####[facility] [address] [place] [address] Sodium [Moles/Vol] 140 mmol/L Normal 135-145 [facility] Comment on above: Performed By: #### 2 328151, 24862749, 0247788, 5147006, 60423311 ####[facility] [address] [place] [address] Urea nitrogen [Mass/Vol] 24 mg/dL High 5-21 [facility] Comment on above: Performed By: #### 2 528522, 58111192, 3555224, 0927349, 92843265 ####[facility] [address] [place] [address] Urea nitrogen/Creatinine [Mass ratio] 22 No Units High 10-20 [facility] Comment on above: Performed By: #### 2 770588, 06411314, 3522457, 8153918, 39601604 ####[facility] [address] [place] [address] Consent for Treatmenton Consent for Treatment [id number]#[id number]:12 7 Normal [facility] HEMATOLOGYOrdered By: SYSTEM SYSTEM on 09-25-2022 Basophils/100 [...] ONC - Otheron 09-25-2022 ONC - Other [id number]#1.00CD: 127 Normal [facility] eGFRon 09-25-2022 GFR/1.73 sq M.predicted among non-blacks MDRD (S/P/Bld) [Vol rate/Area] 53 mL/min/1.73 m2 Low >=59 [facility] Comment on above: Order Comment: Order added by Discern Expert. 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 Kidney failure is indicated at less than 15 mL/min/1.73m2. Performed By: #### 2 227953, 65046001, 5581877, 6418490, 94134132 ####[facility] [address] [place] [address] Ferritinon 09-10-2022 Ferritin [Mass/Vol] 302 ng/mL Normal 11-307 [facility] Comment on above: Result Comment: NORM ALS MEN <30 YRS 16-132 ng/mL MEN >30 YRS 8-338 ng/mL WOMEN (PREMEN) 6-104 ng/mL WOMEN (POSTMEN) 12-210 ng/mL Performed By: #### 2 842587, 61819341, 1003073, 0862221, 1159696, 08630903, 9889162, 9766161, 2956439, 7955112, 2837132 ####[facility] [address] [place] [address] Folateon 09-10-2022 Folate [Mass/Vol] 9.6 ng/mL Normal >=6.7 [facility] Comment on above: Performed By: #### 2 814580, 33520312, 5942520, 3624396, 9351141, 79592217, 5205079, 7488165, 3893893, 9178643, 7717832 ####[facility] [address] [place] [address] Vit B12on 09-10-2022 Cobalamin (Vitamin B12) [Mass/Vol] 203 pg/mL Normal 50-1500 [facility] Comment on above: Performed By: #### 2 049339, 08201413, 7843453, 6442152, 5177899, 10925014, 7984470, 1695020, 2933730, 7487186, 7526238 ####[facility] [address] [place] [address] CA 27 29on 09-09-2022 Cancer Ag 27-29 Qn 15.2 unit/mL Invalid Interpretation Code 0.0-38.6 [facility] Comment on above: Result Comment: Siem [facility] [employer] Immunochemiluminometric Methodology (ICMA)Values obtained with different assay methods or kits cannot be usedinterchangeably. Results cannot be interpreted as absolute evidenceof the presence or absence of malignant disease.Performed at: [facility] [place], [place] [id number] PhD [place] Avelar Performed By: #### 2 905354, 69861234, 9223368, 8780953, 1819260, 41526668, 8198003, 2129110, 0318971, 1431372, 7422956 ####[facility] [address] [place] [address] Auto Diffon 09-08-2022 Basophils/100 WBC (Bld) 0.4 % Normal 0.0-2.0 [facility] Comment on above: Order Comment: Order Added by Discern Expert. Performed By: #### 2 171781, 90120035, 2849496, 0076723, 6294977, 50531504, 6295725, 7662779, 0500974, 3397580, 1985191 ####[facility] [address] [place] [address] Basophils/Leukocytes Auto (Bld) [Pure # fraction] 0.0 E9/L Normal 0.0-0.2 [facility] Comment on above: Order Comment: Order Added by Discern Expert. Performed By: #### 2 992910, 11069525, 3309627, 5411504, 5429978, 52677148, 2489634, 7952159, 7767224, 4922439, 0791050 ####[facility] [address] [place] [address] Eosinophils/100 WBC (Bld) 1.4 % Normal 0.0-8.0 [facility] Comment on above: Order Comment: Order Added by Discern Expert. Performed By: #### 2 269453, 73635909, 3721771, 5770781, 2143825, 82245732, 8264103, 3175804, 6546871, 5915067, 8246532 ####[address] [place] [address] Eosinophils/Leukocytes Auto (Bld) [Pure # fraction] 0.1 E9/L Normal 0.0-0.5 [facility] Comment on above: Order Comment: Order Added by Discern Expert. Performed By: #### 2 787919, 83135364, 9086918, 6990577, 9910320, 08756434, 7289398, 5421810, 2764112, 6823878, 7504387 ####[address] [address] Lymphocytes/100 WBC (Bld) 15.3 % Normal 14.0-50.0 [facility] Comment on above: Order Comment: Order Added by Discern Expert. Performed By: #### 2 420140, 09885323, 0670637, 1356652, 2632573, 46634364, 5879996, 3252083, 2295894, 8698436, 5159180 ####[address] [address] Lymphocytes/Leukocytes Auto (Bld) [Pure # fraction] 0.8 E9/L Low 1.0-4.0 [facility] Comment on above: Order Comment: Order Added by Discern Expert. Performed By: #### 2 804763, 97793313, 7855443, 2586370, 4901744, 57851142, 7516145, 1103708, 2146631, 5244546, 5456063 ####[address] [place] [address] Monocytes/100 WBC (Bld) 2.8 % Low 4.0-14.0 [facility] Comment on above: Order Comment: Order Added by Discern Expert. Performed By: #### 2 576273, 36595013, 2937603, 4650615, 2074430, 44026758, 4924621, 6939349, 3233738, 6524903, 2568434 ####[address] [place] [address] Monocytes/Leukocytes Auto (Bld) [Pure # fraction] 0.1 E9/L Low 0.2-1.0 [facility] Comment on above: Order Comment: Order Added by Discern Expert. Performed By: #### 2 470065, 28523310, 1268068, 5221207, 7888019, 24487383, 1221387, 3343938, 2984279, 3158817, 5071936 ####[facility] [address] [place] [address] Neutrophils/100 WBC (Bld) 80.1 % High 36.0-75.0 [facility] Comment on above: Order Comment: Order Added by Discern Expert. Performed By: #### 2 376223, 75397805, 0916421, 7650192, 8283498, 10248205, 9650483, 9974333, 8021324, 7141043, 0070062 ####[address] [place] [address] Neutrophils/Leukocytes Auto (Bld) [Pure # fraction] 4.2 E9/L Normal 2.0-7.5 [facility] Comment on above: Order Comment: Order Added by Discern Expert. Performed By: #### 2 006894, 93103893, 5866586, 7582755, 2976850, 48009945, 0402019, 9950812, 6991880, 8608960, 2921102 ####[facility] [address] [place] [address] CBC w/ Auto Diffon 3 Erythrocyte distribution width (RBC) [Ratio] 15.4 % High 10.9-14.2 [facility] Comment on above: Performed By: #### 2 358316, 14446483, 5094259, 4202839, 3129432, 52959252, 8600124, 7769885, 5287724, 2167967, 0592795 ####[facility] [address] [place] [address] Hematocrit (Bld) [Volume fraction] 30.9 % Low 34.0-46.0 [facility] Comment on above: Performed By: #### 2 206015, 07230250, 2377467, 3994572, 9456963, 67238410, 3816634, 1925234, 7468743, 8106573, 1595717 ####[facility] [address] [place] [address] Hemoglobin (Bld) [Mass/Vol] 10.3 g/dL Low 12.0-16.0 [facility] Comment on above: Performed By: #### 2 773014, 83793414, 2438436, 6534601, 1238569, 74872128, 1541215, 0045919, 8410438, 1613131, 3444495 ####[facility] [address] [place] [address] MCH (RBC) [Entitic mass] 33.7 pg Normal 27.0-34.0 [facility] Comment on above: Performed By: #### 2 082412, 87948792, 7337017, 2547197, 9004353, 06465515, 4076794, 9013174, 5914939, 2074541, 1368163 ####[facility] [address] [place] [address] MCHC (RBC) [Mass/Vol] 33.1 g/dL Normal 31.4-36.0 [facility] Comment on above: Performed By: #### 2 672449, 65484246, 7583999, 9131615, 2795153, 04949795, 5690912, 3285844, 1340121, 1595048, 9672831 ####[facility] [address] [place] [address] MCV (RBC) [Entitic vol] 101.8 fL High 80.0-100.0 [facility] Comment on above: Performed By: #### 2 454298, 39108890, 9182638, 7608337, 3557832, 82023690, 2758884, 3868412, 5866899, 9168657, 7571030 ####[facility] [address] [place] [address] Platelet mean volume (Bld) [Entitic vol] 7.2 fL Normal 6.4-10.8 [facility] Comment on above: Performed By: #### 2 125650, 77882169, 3813831, 0248152, 3125213, 98290908, 5073984, 8086224, 8859532, 3499224, 6829856 ####[facility] [address] [place] [address] Platelets (Bld) [#/Vol] 307.0 E9/L Normal 150. 0-500. 0 [facility] Comment on above: Performed By: #### 2 379894, 73094947, 4673747, 2628294, 1386189, 76943433, 8927749, 4927146, 6228801, 8190494, 2138771 ####[address] [place] [address] RBC (Bld) [#/Vol] 3.0 E12/L Low 4.3-5.9 [facility] Comment on above: Performed By: #### 2 344333, 42808846, 1204190, 6459751, 6258382, 10208823, 0724386, 2392011, 7203332, 3172936, 2236144 ####[address] [place] [address] WBC corrected for nucl RBC Auto (Bld) [#/Vol] 5.3 E9/L Normal 4.0-11.0 [facility] Comment on above: Performed By: #### 2 766209, 36916148, 2030167, 6963836, 2699151, 92368014, 0398225, 8291667, 2206217, 7946999, 9162305 ####[address] [place] [address] CMPon 09-08-2022 Albumin [Mass/Vol] 3.1 g/dL Low 3.3-5.0 [facility] Comment on above: Performed By: #### 2 509462, 03615679, 0786303, 6451868, 4266393, 67411114, 5182064, 5118272, 5361666, 6302873, 5112139 ####[facility] [address] [place] [address] Albumin/Globulin (S) [Mass conc ratio] 0.8 Low 1.1-2.2 [facility] Comment on above: Performed By: #### 2 820963, 28985917, 0083191, 0686594, 9950998, 27070546, 0098617, 3506312, 2608375, 7040820, 9093744 ####[address] [place] [address] ALP [Catalytic activity/Vol] 156 Int._Unit/L High 21-98 [facility] Comment on above: Performed By: #### 2 148606, 04307854, 9129209, 5046992, 8124061, 43546339, 6207097, 6909492, 0527830, 9716943, 0414886 ####[address] [address] ALT No additional P-5'-P [Catalytic activity/Vol] 16 Int._Unit/L Normal 6-46 [facility] Comment on above: Performed By: #### 2 707715, 78246183, 0664127, 4541990, 4978764, 48289086, 4414068, 9137913, 4694105, 4832552, 4033813 ####[facility] [address] [place] [address] Anion gap [Moles/Vol] 11 mmol/L Normal 6-16 [facility] Comment on above: Performed By: #### 2 593320, 64284464, 2844207, 6985455, 3847358, 73156421, 6033739, 5013979, 1117109, 7736435, 0427249 ####[address] [place] [address] AST [Catalytic activity/Vol] 17 Int._Unit/L Normal 5-43 [facility] Comment on above: Performed By: #### 2 153553, 35342735, 5312155, 4144996, 7881240, 30010700, 8684185, 6215712, 5905824, 4026776, 6097407 ####[facility] [address] [place] [address] Bilirubin [Mass/Vol] 0.8 mg/dL Normal 0.0-1.1 [facility] Comment on above: Performed By: #### 2 392112, 52104208, 5130600, 3525204, 3169150, 15732781, 3465295, 6957062, 5987784, 1719794, 7526182 ####[facility] [address] [place] [address] Calcium [Mass/Vol] 8.7 mg/dL Low 8.9-11.1 [facility] Comment on above: Performed By: #### 2 322881, 91145079, 4105196, 2959129, 2272214, 28206724, 2058143, 2194889, 7624827, 8844422, 3813579 ####[facility] [address] [place] [address] Chloride [Moles/Vol] 109 mmol/L Normal 101-111 [facility] Comment on above: Performed By: #### 2 821190, 62675991, 0764758, 6370887, 6740672, 67617620, 0985099, 0304819, 5285640, 9718279, 7593481 ####[facility] [address] [place] [address] CO2 [Moles/Vol] 23 mmol/L Normal 21-31 [facility] Comment on above: Performed By: #### 2 619001, 80308417, 6197662, 3723093, 9284846, 35900986, 6429526, 8715192, 7911650, 4136800, 7173861 ####[facility] [address] [place] [address] Creatinine [Mass/Vol] 1.3 mg/dL Normal 0.5-1.3 [facility] Comment on above: Performed By: #### 2 702901, 64204916, 0395347, 8770465, 1274917, 69783379, 8239364, 0752685, 8540160, 1430062, 2545127 ####[facility] [address] [place] [address] Globulin (S) [Mass/Vol] 4.0 g/dL Normal 1.4-4.0 [facility] Comment on above: Performed By: #### 2 321467, 13607880, 5275459, 3839067, 4365335, 34322512, 4599864, 9747257, 0369985, 5787163, 5055902 ####[facility] [address] [place] [address] Glucose [Mass/Vol] 133 mg/dL Normal 55-199 [facility] Comment on above: Result Comment: If t his glucose result represents a fasting glucose, interpretation should refer to the following reference range: 55-99 mg/dL Performed By: #### 2 226517, 07762436, 6336371, 8511735, 6593399, 87158098, 6840247, 8792520, 9783664, 5888658, 3349421 ####[facility] [address] [place] [address] Potassium [Moles/Vol] 4.2 mmol/L Normal 3.5-5.3 [facility] Comment on above: Performed By: #### 2 424369, 20693889, 8560483, 9245326, 0931338, 76696540, 7441035, 6876786, 1290550, 3004393, 4948117 ####[facility] [address] [place] [address] Protein [Mass/Vol] 7.1 g/dL Normal 6.0-7.8 [facility] Comment on above: Performed By: #### 2 204029, 50969353, 3518687, 1366102, 4142794, 92267193, 7883815, 0375178, 6800750, 7443433, 7844903 ####[facility] [address] [place] [address] Sodium [Moles/Vol] 139 mmol/L Normal 135-145 [facility] Comment on above: Performed By: #### 2 486474, 42978555, 1115960, 8308105, 3328817, 33246363, 5820562, 3342104, 3948083, 4385319, 1950861 ####[facility] [address] [place] [address] Urea nitrogen [Mass/Vol] 28 mg/dL High 5- [facility] Comment on above: Performed By: #### 2 098224, 95640162, 6915697, 2709755, 1000849, 12190767, 6880550, 7079128, 3843833, 3070731, 5314689 ####[facility] [address] [place] [address] Urea nitrogen/Creatinine [Mass ratio] 22 No Units High 10- [facility] Comment on above: Performed By: #### 2 683230, 33725828, 2304243, 2406222, 6968822, 19949791, 5909552, 1961268, 2540665, 7884796, 7815055 ####[facility] [address] [place] [address] Consent for Treatmenton 08-21 Consent for Treatment [id number]#1.00CD:12 7 [facility] Consent for Treatment [id number]#1.00CD:12 7 [facility] Discharge Instructionson Discharge Instructions [id number]#1.00CD:1 27 [facility] ED Clinical Summaryon 2022 ED Clinical Summary Normal [facility] ED Note-Physicianon 09-09-19 ED Note-Physician [facility] Comment on above: Result Comment: Elec tronically Signed By: Mendez Lucero PA-C\.br\Date and Time Signed: 09/08/22 16:09 EDT\.br\Electronically Co-Signed By: Pedro Nava DO.br\Date and Time Co-Signed: 09/08/22 16:54 EDT ED Patient Education Noteon 09-08-2022 ED Patient Education Note Normal [facility] ED Patient Summaryon 023 ED Patient Summary Normal [facility] Ironon 09-08-2022 Iron [Mass/Vol] 48 microgram/dL Normal 35-153 [facility] Comment on above: Performed By: #### 2 401069, 25784087, 6458615, 0919507, 9529707, 16221844, 7628965, 4340605, 2067162, 6584021, 3181756 ####[facility] [address] [place] [address] Iron Saturationon 09-08-2022 Iron binding capacity [Mass/Vol] 239 microgram/dL Low 250-400 [facility] Comment on above: Performed By: #### 2 313307, 01274001, 7026278, 8345916, 6781488, 00953074, 7214856, 9824498, 9392138, 1128299, 6834979 ####[facility] [address] [place] [address] Iron saturation [Mass fraction] 20 % Normal 20-50 [facility] Comment on above: Performed By: #### 2 242156, 21381370, 6384151, 6883270, 8497837, 53901334, 7259670, 9934254, 3895952, 0922959, 2607076 ####[facility] [address] [place] [address] Transferrinon 09-08-2022 Transferrin [Mass/Vol] 170 mg/dL Low 200-370 [facility] Comment on above: Performed By: #### 2 729382, 48310149, 7322890, 8559064, 4894350, 33815995, 2108834, 5195035, 7851631, 1808929, 2445061 ####[facility] [address] [place] [address] eGFRon 09-08-2022 GFR/1.73 sq M.predicted among non-blacks MDRD (S/P/Bld) [Vol rate/Area] 43 mL/min/1.73 m2 Low >=59 [facility] Comment on above: Order Comment: Order added by Discern Expert. 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 Kidney failure is indicated at less than 15 mL/min/1.73m2. Performed By: #### 2 068673, 09911579, 3650931, 6572636, 3288683, 96561157, 1245508, 2306812, 6288647, 6855095, 2561369 ####[facility] [place] [address] Coding Summary.on 08-04-2022 Coding Summary. Normal [facility] Coding Summary.on 08-02-2022 Coding Summary. Normal [facility] CA 27 29on 08-01-2022 Cancer Ag 27-29 Qn 13.4 unit/mL Invalid Interpretation Code 0.0-38.6 [facility] Comment on above: Result Comment: Siem [employer] Immunochemiluminometric Methodology (ICMA)Values obtained with different assay methods or kits cannot be usedinterchangeably. Results cannot be interpreted as absolute evidenceof the presence or absence of malignant disease.Performed at: [address] [id number] PhD [place] Avelar Performed By: #### 2 360219, 86829553, 02765220, 5565458, 6724011 ####[facility] [address] [place] [address] Consent for Treatmenton 07-21 Consent for Treatment [id number]#1.00CD:12 7 Normal [facility] Oncology Noteon 08-01-2022 Oncology Note Normal [facility] Comment on above: Result Comment: Elec tronically Signed By: Jane FARMER, Yolande Houston\.johnnie\Date and Time Signed: 08/01/22 15:08 EDT Oncology Progress Noteon Oncology Progress Note Normal Fi [facility] Auto Diffon 07-30-2022 Basophils/100 WBC (Bld) 2.7 % High 0.0-2.0 [facility] Comment on above: Order Comment: Order Added by Discern Expert. Performed By: #### 2 329933, 82386348, 53099800, 8182683, 4863851 ####[facility] [address] [place] [address] Basophils/Leukocytes Auto (Bld) [Pure # fraction] 0.1 E9/L Normal 0.0-0.2 [facility] Comment on above: Order Comment: Order Added by Discern Expert. Performed By: #### 2 517343, 08798103, 61135518, 7553023, 6898428 ####[facility] [address] [place] [address] Eosinophils/100 WBC (Bld) 3.5 % Normal 0.0-8.0 [facility] Comment on above: Order Comment: Order Added by Discern Expert. Performed By: #### 2 268374, 49888626, 14266837, 1919382, 3676544 ####[facility] [address] [place] [address] Eosinophils/Leukocytes Auto (Bld) [Pure # fraction] 0.1 E9/L Normal 0.0-0.5 [facility] Comment on above: Order Comment: Order Added by Discern Expert. Performed By: #### 2 095933, 41802719, 15269259, 5019113, 2738697 ####[facility] [address] [place] [address] Lymphocytes/100 WBC (Bld) 22.7 % Normal 14.0-50.0 [facility] Comment on above: Order Comment: Order Added by Discern Expert. Performed By: #### 2 785688, 09718535, 12166454, 5574695, 1991095 ####[facility] [address] [place] [address] Lymphocytes/Leukocytes Auto (Bld) [Pure # fraction] 0.8 E9/L Low 1.0-4.0 [facility] Comment on above: Order Comment: Order Added by Discern Expert. Performed By: #### 2 732087, 14647870, 34707847, 5461150, 8705825 ####[facility] [address] [place] [address] Monocytes/100 WBC (Bld) 3.2 % Low 4.0-14.0 [facility] Comment on above: Order Comment: Order Added by Discern Expert. Performed By: #### 2 997560, 24892932, 76549919, 4731882, 2115015 ####[address] [place] [address] Monocytes/Leukocytes Auto (Bld) [Pure # fraction] 0.1 E9/L Low 0.2-1.0 [facility] Comment on above: Order Comment: Order Added by Discern Expert. Performed By: #### 2 927884, 78983506, 97660000, 5790595, 6436487 ####[address] [place] [address] Neutrophils/100 WBC (Bld) 67.9 % Normal 36.0-75.0 [facility] Comment on above: Order Comment: Order Added by Discern Expert. Performed By: #### 2 134055, 43371792, 46022953, 3464060, 0150648 ####[address] [place] [address] Neutrophils/Leukocytes Auto (Bld) [Pure # fraction] 2.5 E9/L Normal 2.0-7.5 [facility] Comment on above: Order Comment: Order Added by Discern Expert. Performed By: #### 2 [address], 83520049, 97574029, 3430895, 4046356 ####[address] [place] [address] CBC w/ Auto Diffon Erythrocyte distribution width (RBC) [Ratio] 15.9 % High 10.9-14.2 [facility] Comment on above: Performed By: #### 2 899437, 32161274, 34115473, 1536956, 8190751 ####[address] [place] [address] Hematocrit (Bld) [Volume fraction] 32.4 % Low 34.0-46.0 [facility] Comment on above: Performed By: #### 2 808444, 27076613, 76134863, 1701382, 4855317 ####[address] [place] [address] Hemoglobin (Bld) [Mass/Vol] 10.5 g/dL Low 12.0-16.0 [facility] Comment on above: Performed By: #### 2 055780, 64371937, 71672451, 2923539, 5048859 ####[facility] [address] [place] [address] MCH (RBC) [Entitic mass] 33.6 pg Normal 27.0-34.0 [facility] Comment on above: Performed By: #### 2 716143, 10595502, 86278689, 2630663, 1397616 ####[address] [address] MCHC (RBC) [Mass/Vol] 32.5 g/dL Normal 31.4-36.0 [facility] Comment on above: Performed By: #### 2 019881, 70953234, 57120609, 8474914, 2817437 ####[address] [place] [address] MCV (RBC) [Entitic vol] 103.2 fL High 80.0-100.0 [facility] Comment on above: Performed By: #### 2 293374, 22534450, 68517021, 6316947, 0989825 ####[address] [place] [address] Platelet mean volume (Bld) [Entitic vol] 7.4 fL Normal 6.4-10.8 [facility] Comment on above: Performed By: #### 2 254199, 81886295, 53852875, 2194499, 8769360 ####[address] [address] Platelets (Bld) [#/Vol] 142.0 E9/L Low 150. 0-500. 0 [facility] Comment on above: Performed By: #### 2 336866, 28067922, 00320772, 9835216, 7298535 ####[address] [address] RBC (Bld) [#/Vol] 3.1 E12/L Low 4.3-5.9 [facility] Comment on above: Performed By: #### 2 287088, 32618871, 96790066, 6015375, 2233034 ####[address] [address] WBC corrected for nucl RBC Auto (Bld) [#/Vol] 3.7 E9/L Low 4.0-11.0 [facility] Comment on above: Performed By: #### 2 156245, 27845307, 34473884, 8780068, 7168257 ####[address] CHEMISTRYOrdered By: SYSTEM SYSTEM on 07-30-2022 Albumin [...] 40 mL/min/1.73 m2 Low >=59mL/min /1.73 m2 [facility] Chem S Globulin (S) [Mass/Vol] 3.2 g/dL [...] 07-30-2022 Albumin [Mass/Vol] 3.3 g/dL Normal 3.3-5.0 [facility] Comment on above: Performed By: #### 2 283604, 90358127, 44957660, 5572516, 7270561 ####[facility] [address] [place] [address] Albumin/Globulin (S) [Mass conc ratio] 1.0 Low 1.1-2.2 [facility] Comment on above: Performed By: #### 2 574103, 35876609, 77583812, 6816546, 2092965 ####[facility] [address] [place] [address] ALP [Catalytic activity/Vol] 121 Int._Unit/L High 21-98 [facility] Comment on above: Performed By: #### 2 438191, 90763746, 02290178, 8985609, 6036137 ####[address] [address] ALT No additional P-5'-P [Catalytic activity/Vol] 15 Int._Unit/L Normal 6-46 [facility] Comment on above: Performed By: #### 2 535858, 00697718, 60965118, 4204314, 5610884 ####[facility] [address] [place] [address] Anion gap [Moles/Vol] 11 mmol/L Normal 6-16 [facility] Comment on above: Performed By: #### 2 870204, 52626501, 74015851, 8020760, 1686145 ####[address] [address] AST [Catalytic activity/Vol] 15 Int._Unit/L Normal 5-43 [facility] Comment on above: Performed By: #### 2 384901, 80662622, 35605675, 7594689, 4179864 ####[address] [place] [address] Bilirubin [Mass/Vol] 0.9 mg/dL Normal 0.0-1.1 [facility] Comment on above: Performed By: #### 2 504720, 01922369, 16964544, 8324265, 5141084 ####[facility] [address] [place] [address] Calcium [Mass/Vol] 8.5 mg/dL Low 8.9-11.1 [facility] Comment on above: Performed By: #### 2 945742, 16250152, 30304031, 2463388, 7599247 ####[facility] [address] [place] [address] Chloride [Moles/Vol] 107 mmol/L Normal 101-111 [facility] Comment on above: Performed By: #### 2 447698, 99155012, 97227304, 8892441, 3148176 ####[facility] [address] [place] [address] CO2 [Moles/Vol] 22 mmol/L Normal 21-31 [facility] Comment on above: Performed By: #### 2 978529, 64758782, 83775359, 6235482, 6578871 ####[facility] [address] [place] [address] Creatinine [Mass/Vol] 1.3 mg/dL Normal 0.5-1.3 [facility] Comment on above: Performed By: #### 2 945179, 10463875, 56287086, 0949092, 6183360 ####[facility] [address] [place] [address] Globulin (S) [Mass/Vol] 3.2 g/dL Normal 1.4-4.0 [facility] Comment on above: Performed By: #### 2 159772, 69243683, 92172389, 0730668, 6407308 ####[facility] [address] [place] [address] Glucose [Mass/Vol] 147 mg/dL Normal 55-199 [facility] Comment on above: Result Comment: If t his glucose result represents a fasting glucose, interpretation should refer to the following reference range: 55-99 mg/dL Performed By: #### 2 404818, 89766982, 67827154, 1205016, 2858965 ####[facility] [address] [place] [address] Potassium [Moles/Vol] 4.0 mmol/L Normal 3.5-5.3 [facility] Comment on above: Performed By: #### 2 870293, 62260695, 54094689, 8136722, 4371866 ####[facility] [address] [place] [address] Protein [Mass/Vol] 6.5 g/dL Normal 6.0-7.8 [facility] Comment on above: Performed By: #### 2 906572, 94686508, 67935750, 9271686, 1719864 ####[facility] [address] [place] [address] Sodium [Moles/Vol] 136 mmol/L Normal 135-145 [facility] Comment on above: Performed By: #### 2 319709, 03133222, 93835453, 9547024, 5507999 ####[facility] [address] [place] [address] Urea nitrogen [Mass/Vol] 33 mg/dL High 5-21 [facility] Comment on above: Performed By: #### 2 270531, 43340127, 16742458, 5867686, 2506028 ####[facility] [address] [place] [address] Urea nitrogen/Creatinine [Mass ratio] 25 No Units High 10-20 [facility] Comment on above: Performed By: #### 2 389358, 15169916, 49754007, 4674279, 2847569 ####[facility] [address] [place] [address] Consent for Treatmenton 07-21 Consent for Treatment [id number]#1.00CD:12 7 Normal [facility] HEMATOLOGYOrdered By: SYSTEM SYSTEM on 07-30-2022 Basophils/100 [...] E9/L Low 150. 0 - 500.0 E9/L [facility] HemeAutoSS RBC (Bld) [#/Vol] 3.1 E12/L Low 4.3 - 5.9 E12/L [facility] HemeAutoSS WBC corrected for nucl RBC Auto (Bld) [#/Vol] 3.7 E9/L Low 4.0 - 11.0 E9/L [facility] HemeAutoSS eGFRon 07-30-2022 GFR/1.73 sq M.predicted among blacks MDRD (S/P/Bld) [Vol rate/Area] 49 mL/min/1.73 m2 Low >=59 [facility] Comment on above: Order Comment: Order added by Discern Expert. Result Comment: eGFR is race adjusted. AA=. Performed By: #### 2 619335, 26362284, 21475236, 3413576, 0602284 ####[facility] [address] [place] [address] GFR/1.73 sq M.predicted among non-blacks MDRD (S/P/Bld) [Vol rate/Area] 40 mL/min/1.73 m2 Low >=59 [facility] Comment on above: Order Comment: Order added by Discern Expert. 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 Kidney failure is indicated at less than 15 mL/min/1.73m2. Performed By: #### 2 193492, 68866579, 63816632, 7345231, 3663619 ####[facility] [address] [place] [address] Coding Summary.on 07-27-2022 Coding Summary. Normal [facility] NM PET w/ CT Scan Skull Base to Midthighon 07-26-2022 NM PET w/ CT Scan Skull Base to Midthigh Normal [facility] RAD - MISCon 07-26-2022 RAD - MISC [id number]#1.00CD:1 27 Normal [facility] Consent for Treatmenton Consent for Treatment [id number]#1.00CD:12 7 Normal [facility] Physician Orderon 07-25-2022 Physician Order [id number]#1.00CD:12 7 Normal [facility] Coding Summary.on 07-13-2022 Coding Summary. Normal [facility] CA 27 29on 07-10-2022 Cancer Ag 27-29 Qn 14.4 unit/mL Invalid Interpretation Code 0.0-38.6 [facility] Comment on above: Result Comment: [facility] [employer] Immunochemiluminometric Methodology (ICMA)Values obtained with different assay methods or kits cannot be usedinterchangeably. Results cannot be interpreted as absolute evidenceof the presence or absence of malignant disease.Performed at: [facility] [id number] PhD [place] Avelar Performed By: #### 2 623849, 7268040, 64587723, 0956156, 63447502 ####[facility] [address] [place] [address] Auto Diffon 07-09-2022 Basophils/100 WBC (Bld) 2.7 % High 0.0-2.0 [facility] Comment on above: Order Comment: Order Added by Discern Expert. Performed By: #### 2 003519, 8177063, 15977792, 4948076, 78767934 ####[facility] [address] [place] [address] Basophils/Leukocytes Auto (Bld) [Pure # fraction] 0.1 E9/L Normal 0.0-0.2 [facility] Comment on above: Order Comment: Order Added by Discern Expert. Performed By: #### 2 819923, 0384467, 89122665, 4009485, 84549752 ####[facility] [address] [place] [address] Eosinophils/100 WBC (Bld) 1.9 % Normal 0.0-8.0 [facility] Comment on above: Order Comment: Order Added by Discern Expert. Performed By: #### 2 679174, 5202474, 55467068, 1942182, 45983519 ####[address] [place] [address] Eosinophils/Leukocytes Auto (Bld) [Pure # fraction] 0.1 E9/L Normal 0.0-0.5 [facility] Comment on above: Order Comment: Order Added by Discern Expert. Performed By: #### 2 979027, 2962795, 06484938, 7366732, 75155890 ####[address] [address] Lymphocytes/100 WBC (Bld) 31.4 % Normal 14.0-50.0 [facility] Comment on above: Order Comment: Order Added by Faviola Expert. Performed By: #### 2 365963, 7509411, 20490060, 2241517, 81648644 ####[address] [address] Lymphocytes/Leukocytes Auto (Bld) [Pure # fraction] 1.3 E9/L Normal 1.0-4.0 [facility] Comment on above: Order Comment: Order Added by Faviola Expert. Performed By: #### 2 997902, 4723714, 60758493, 2544885, 94004252 ####[address] [address] Monocytes/100 WBC (Bld) 5.5 % Normal 4.0-14.0 [facility] Comment on above: Order Comment: Order Added by Faviola Expert. Performed By: #### 2 878808, 4101911, 10176714, 3528372, 92115220 ####[address] [address] Monocytes/Leukocytes Auto (Bld) [Pure # fraction] 0.2 E9/L Normal 0.2-1.0 [facility] Comment on above: Order Comment: Order Added by Faviola Expert. Performed By: #### 2 761648, 1705558, 67400214, 7942518, 22040349 ####[address] [place] [address] Neutrophils/100 WBC (Bld) 58.5 % Normal 36.0-75.0 [facility] Comment on above: Order Comment: Order Added by Discern Expert. Performed By: #### 2 331139, 3817253, 62101846, 3908372, 57808279 ####[address] [place] [address] Neutrophils/Leukocytes Auto (Bld) [Pure # fraction] 2.5 E9/L Normal 2.0-7.5 [facility] Comment on above: Order Comment: Order Added by Discern Expert. Performed By: #### 2 190136, 5788514, 94203282, 3280776, 00418645 ####[address] [address] CBC w/ Auto Diffon Erythrocyte distribution width (RBC) [Ratio] 17.1 % High 10.9-14.2 [facility] Comment on above: Performed By: #### 2 543772, 3714312, 82373030, 5047216, 91226908 ####[address] [address] Hematocrit (Bld) [Volume fraction] 36.3 % Normal 34.0-46.0 [facility] Comment on above: Performed By: #### 2 322095, 7041797, 90803026, 5441953, 12109880 ####[address] [address] Hemoglobin (Bld) [Mass/Vol] 11.9 g/dL Low 12.0-16.0 [facility] Comment on above: Performed By: #### 2 432275, 5584347, 69199876, 3727894, 83057591 ####[address] [place] [address] MCH (RBC) [Entitic mass] 33.4 pg Normal 27.0-34.0 [facility] Comment on above: Performed By: #### 2 338955, 5434567, 26583697, 0691581, 90320777 ####[facility] [address] [place] [address] MCHC (RBC) [Mass/Vol] 32.9 g/dL Normal 31.4-36.0 [facility] Comment on above: Performed By: #### 2 684516, 6987619, 76496635, 4940954, 72618987 ####[address] [address] MCV (RBC) [Entitic vol] 101.5 fL High 80.0-100.0 [facility] Comment on above: Performed By: #### 2 737434, 3460624, 25429231, 9826546, 41168629 ####[address] [address] Platelet mean volume (Bld) [Entitic vol] 7.3 fL Normal 6.4-10.8 [facility] Comment on above: Performed By: #### 2 236613, 9936749, 33314112, 1175262, 13226372 ####[address] [address] Platelets (Bld) [#/Vol] 205.0 E9/L Normal 150. 0-500. 0 [facility] Comment on above: Performed By: #### 2 895662, 0447689, 27719292, 4833980, 21331196 ####[address] [address] RBC (Bld) [#/Vol] 3.6 E12/L Low 4.3-5.9 [facility] Comment on above: Performed By: #### 2 329193, 0720626, 16147585, 8751798, 07548471 ####[address] [address] WBC corrected for nucl RBC Auto (Bld) [#/Vol] 4.2 E9/L Normal 4.0-11.0 [facility] Comment on above: Performed By: #### 2 278415, 2085582, 79069687, 9779383, 88377682 ####[facility] [address] [place] [address] CHEMISTRYOrdered By: SYSTEM SYSTEM on 07-09-2022 Albumin [...] 40 mL/min/1.73 m2 Low >=59mL/min /1.73 m2 [facility] Chem S Globulin (S) [Mass/Vol] 3.4 g/dL Normal 1.4 - 4.0 gm/dL [facility] Remisol Glucose [Mass/Vol] 119 mg/dL Normal 55 - 199 mg/dL [facility] Remisol Potassium [Moles/Vol] 4.1 mmol/L Normal 3.5 - 5.3 mmol/L [facility] Protein [Mass/Vol] 7.0 g/dL Normal 6.0 - 7.8 gm/dL [facility] Sodium [Moles/Vol] 138 mmol/L Normal 135 - 145 mmol/L [facility] Remisol Urea nitrogen [Mass/Vol] 24 mg/dL High 5 - 21 mg/dL [facility] Remisol Urea nitrogen/Creatinine [Mass ratio] 18 mg/mg Normal 10 - [facility] Remisol CMPon 07-09-2022 Albumin [Mass/Vol] 3.6 g/dL Normal 3.3-5.0 [facility] Comment on above: Performed By: #### 2 533823, 8289038, 52374254, 2469891, 49515370 ####[facility] [address] [place] [address] Albumin/Globulin (S) [Mass conc ratio] 1.1 Normal 1.1-2.2 [facility] Comment on above: Performed By: #### 2 887254, 3319029, 07499027, 4000499, 02413672 ####[facility] [address] [place] [address] ALP [Catalytic activity/Vol] 87 Int._Unit/L Normal 21-98 [facility] Comment on above: Performed By: #### 2 270995, 0843767, 83778088, 7981367, 32418878 ####[facility] [address] [place] [address] ALT No additional P-5'-P [Catalytic activity/Vol] 18 Int._Unit/L Normal 6-46 [facility] Comment on above: Performed By: #### 2 902261, 6171959, 66482092, 3016812, 88980914 ####[facility] [address] [place] [address] Anion gap [Moles/Vol] 11 mmol/L Normal 6-16 [facility] Comment on above: Performed By: #### 2 977235, 9572796, 00964866, 5106806, 40851435 ####[facility] [address] [place] [address] AST [Catalytic activity/Vol] 18 Int._Unit/L Normal 5-43 [facility] Comment on above: Performed By: #### 2 175854, 8253527, 55691110, 1418116, 80687800 ####[facility] [address] [place] [address] Bilirubin [Mass/Vol] 1.0 mg/dL Normal 0.0-1.1 [facility] Comment on above: Performed By: #### 2 307115, 5594928, 43813918, 6374907, 41332464 ####[facility] [address] [place] [address] Calcium [Mass/Vol] 8.7 mg/dL Low 8.9-11.1 [facility] Comment on above: Performed By: #### 2 499320, 6719768, 22743203, 5311187, 00220134 ####[facility] [address] [place] [address] Chloride [Moles/Vol] 108 mmol/L Normal 101-111 [facility] Comment on above: Performed By: #### 2 654390, 7106827, 72365034, 8712176, 47994176 ####[facility] [address] [place] [address] CO2 [Moles/Vol] 23 mmol/L Normal 21-31 [facility] Comment on above: Performed By: #### 2 126047, 6555028, 82062076, 0252182, 11044196 ####[facility] [address] [place] [address] Creatinine [Mass/Vol] 1.3 mg/dL Normal 0.5-1.3 [facility] Comment on above: Performed By: #### 2 494098, 9193779, 96378745, 8680592, 56728893 ####[facility] [address] [place] [address] Globulin (S) [Mass/Vol] 3.4 g/dL Normal 1.4-4.0 [facility] Comment on above: Performed By: #### 2 392259, 0213853, 89518204, 3225712, 29719248 ####[facility] [address] [place] [address] Glucose [Mass/Vol] 119 mg/dL Normal 55-199 [facility] Comment on above: Result Comment: If t his glucose result represents a fasting glucose, interpretation should refer to the following reference range: 55-99 mg/dL Performed By: #### 2 791330, 9377031, 36693550, 1948115, 78689709 ####[facility] [address] [place] [address] Potassium [Moles/Vol] 4.1 mmol/L Normal 3.5-5.3 [facility] Comment on above: Performed By: #### 2 332719, 8754914, 41392964, 6852865, 63509318 ####[facility] [address] [place] [address] Protein [Mass/Vol] 7.0 g/dL Normal 6.0-7.8 [facility] Comment on above: Performed By: #### 2 505723, 3776724, 76993438, 5267065, 93772497 ####[facility] [address] [place] [address] Sodium [Moles/Vol] 138 mmol/L Normal 135-145 [facility] Comment on above: Performed By: #### 2 392654, 4344392, 55126835, 3120734, 45010335 ####[facility] [address] [place] [address] Urea nitrogen [Mass/Vol] 24 mg/dL High 5-21 [facility] Comment on above: Performed By: #### 2 330087, 7953944, 01530236, 8111698, 76545440 ####[facility] [address] [place] [address] Urea nitrogen/Creatinine [Mass ratio] 18 No Units Normal 02-08 [facility] Comment on above: Performed By: #### 2 955558, 6640044, 75464989, 7544089, 33353108 ####[facility] [address] [place] [address] Consent for Treatmenton 06-21 Consent for Treatment [id number]#1.00CD:12 7 Normal [facility] HEMATOLOGYOrdered By: SYSTEM SYSTEM on 07-09-2022 Basophils/100 [...] [Vol rate/Area] 49 mL/min/1.73 m2 Low >=59 [facility] Comment on above: Order Comment: Order added by Discern Expert. Result Comment: eGFR is race adjusted. AA=. Performed By: #### 2 994420, 3311544, 68134159, 2407461, 00598955 ####[facility] [address] [place] [address] GFR/1.73 sq M.predicted among non-blacks MDRD (S/P/Bld) [Vol rate/Area] 40 mL/min/1.73 m2 Low >=59 [facility] Comment on above: Order Comment: Order added by Discern Expert. 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 Kidney failure is indicated at less than 15 mL/min/1.73m2. Performed By: #### 2 470665, 5832951, 23800756, 6649054, 73788608 ####[facility] [address] [place] [address] ONC - Otheron 06-28-2022 ONC - Other [id number]#1.00CD:1 27 Normal [facility] Physician Orderon 06-12-2022 Physician Order [id number]#1.00CD:1 27 Normal [facility] Coding Summary.on 06-07-2022 Coding Summary. Normal [facility] CA 27 29on 06-06-2022 Cancer Ag 27-29 Qn 17.2 unit/mL Invalid Interpretation Code 0.0-38.6 [facility] Comment on above: Result Comment: [employer] Immunochemiluminometric Methodology (ICMA)Values obtained with different assay methods or kits cannot be usedinterchangeably. Results cannot be interpreted as absolute evidenceof the presence or absence of malignant disease.Performed at: [facility] [id number] PhD [place] Avelar Performed By: #### 2 528111, 86924948, 8606646, 19664356, 2351961 ####[facility] [address] [place] [address] Consent for Treatmenton 05-23 Consent for Treatment [id number]#1.00CD:12 7 Normal [facility] Oncology Noteon 06-06-2022 Oncology Note Normal [facility] Comment on above: Result Comment: Elec tronically Signed By: Jane FARMER, Yolande Houston\.br\Date and Time Signed: 06/06/22 14:03 EST Oncology Progress Noteon Oncology Progress Note Normal [facility] Auto Diffon 06-05-2022 Basophils/100 WBC (Bld) 2.5 % High 0.0-2.0 [facility] Comment on above: Order Comment: Order Added by Discern Expert. Performed By: #### 2 094077, 49592939, 9912214, 12979604, 5427703 ####[facility] [address] [place] [address] Basophils/Leukocytes Auto (Bld) [Pure # fraction] 0.1 E9/L Normal 0.0-0.2 [facility] Comment on above: Order Comment: Order Added by Discern Expert. Performed By: #### 2 086512, 26329146, 8248896, 02172500, 8321054 ####[address] [address] Eosinophils/100 WBC (Bld) 1.7 % Normal 0.0-8.0 [facility] Comment on above: Order Comment: Order Added by Faviola Expert. Performed By: #### 2 714964, [id number], 8492057, 65070813, 4149690 ####[facility] [address] [place] [address] Eosinophils/Leukocytes Auto (Bld) [Pure # fraction] 0.1 E9/L Normal 0.0-0.5 [facility] Comment on above: Order Comment: Order Added by Faviola Expert. Performed By: #### 2 886240, 67359378, 8283573, 97797097, 8844417 ####[address] [address] Lymphocytes/100 WBC (Bld) 49.6 % Normal 14.0-50.0 [facility] Comment on above: Order Comment: Order Added by Faviola Expert. Performed By: #### 2 114390, 40296654, 9176357, 94389215, 1632771 ####[address] [address] Lymphocytes/Leukocytes Auto (Bld) [Pure # fraction] 2.3 E9/L Normal 1.0-4.0 [facility] Comment on above: Order Comment: Order Added by Discern Expert. Performed By: #### 2 276931, 89935272, 2718712, 52050973, 3873368 ####[address] [place] [address] Monocytes/100 WBC (Bld) 8.1 % Normal 4.0-14.0 [facility] Comment on above: Order Comment: Order Added by Discern Expert. Performed By: #### 2 210351, 92233796, 7931163, 17108960, 3308645 ####[address] [place] [address] Monocytes/Leukocytes Auto (Bld) [Pure # fraction] 0.4 E9/L Normal 0.2-1.0 [facility] Comment on above: Order Comment: Order Added by Faviola Expert. Performed By: #### 2 958000, 39102026, 1565801, 66516136, 9132725 ####[address] [address] Neutrophils/100 WBC (Bld) 38.1 % Normal 36.0-75.0 [facility] Comment on above: Order Comment: Order Added by Faviola Expert. Performed By: #### 2 322889, 59399241, 8634551, 84776945, 4977808 ####[address] [address] Neutrophils/Leukocytes Auto (Bld) [Pure # fraction] 1.8 E9/L Low 2.0-7.5 [facility] Comment on above: Order Comment: Order Added by Discern Expert. Performed By: #### 2 280690, 30416155, 7838253, 01480994, 0367729 ####[address] [address] CBC w/ Auto Diffon 3 Erythrocyte distribution width (RBC) [Ratio] 17.2 % High 10.9-14.2 [facility] Comment on above: Performed By: #### 2 246577, 17022466, 6067561, 03363512, 2367537 ####[facility] [address] [place] [address] Hematocrit (Bld) [Volume fraction] 37.6 % Normal 34.0-46.0 [facility] Comment on above: Performed By: #### 2 125873, 37372666, 5877268, 18949964, 7256471 ####[facility] [address] [place] [address] Hemoglobin (Bld) [Mass/Vol] 12.7 g/dL Normal 12.0-16.0 [facility] Comment on above: Performed By: #### 2 293896, 41337911, 9020662, 87754551, 6210122 ####[address] MCH (RBC) [Entitic mass] 33.2 pg Normal 27.0-34.0 [facility] Comment on above: Performed By: #### 2 919093, 20106348, 2786194, 57044610, 3685677 ####[facility] [address] [place] [address] MCHC (RBC) [Mass/Vol] 33.8 g/dL Normal 31.4-36.0 [facility] Comment on above: Performed By: #### 2 362578, 66093599, 0139526, 10920513, 6608911 ####[address] [address] MCV (RBC) [Entitic vol] 98.2 fL Normal 80.0-100.0 [facility] Comment on above: Performed By: #### 2 448645, 19066254, 3440666, 50899683, 1147079 ####[address] [address] Platelet mean volume (Bld) [Entitic vol] 7.8 fL Normal 6.4-10.8 [facility] Comment on above: Performed By: #### 2 635156, 34758868, 0434374, 45156306, 2523315 ####[facility] [address] [place] [address] Platelets (Bld) [#/Vol] 116.0 E9/L Low 150. 0-500. 0 [facility] Comment on above: Performed By: #### 2 450890, 39385833, 3472714, 89600421, 3241248 ####[facility] [address] [place] [address] RBC (Bld) [#/Vol] 3.8 E12/L Low 4.3-5.9 [facility] Comment on above: Performed By: #### 2 966809, 67168678, 8192813, 63351338, 5670706 ####[facility] [address] [place] [address] WBC corrected for nucl RBC Auto (Bld) [#/Vol] 4.6 E9/L Normal 4.0-11.0 [facility] Comment on above: Performed By: #### 2 151899, 06229982, 9857204, 43367951, 3975415 ####[facility] [address] [place] [address] CHEMISTRYOrdered By: SYSTEM SYSTEM on 06-05-2022 Albumin [...] mg/dL Low 8.9 - 11. 1 mg/dL FT Remisol [...] 44 mL/min/1.73 m2 Low >=59mL/min /1.73 m2 [facility] Chem S Globulin (S) [Mass/Vol] 3.1 g/dL [...] ratio] 22 mg/mg High 10 - 20 [facility] Remisol CMPon 06-05-2022 Albumin [Mass/Vol] 3.6 g/dL Normal 3.3-5.0 [facility] Comment on above: Performed By: #### 2 774976, 48555035, 9694059, 45326676, 9104568 ####[facility] [address] [place] [address] Albumin/Globulin (S) [Mass conc ratio] 1.2 Normal 1.1-2.2 [facility] Comment on above: Performed By: #### 2 338866, 39449209, 5910568, 44887581, 2556098 ####[facility] [address] [place] [address] ALP [Catalytic activity/Vol] 79 Int._Unit/L Normal 21-98 [facility] Comment on above: Performed By: #### 2 622195, 19652703, 4474880, 55899828, 9182406 ####[facility] [address] [place] [address] ALT No additional P-5'-P [Catalytic activity/Vol] 14 Int._Unit/L Normal 6-46 [facility] Comment on above: Performed By: #### 2 720620, 06418088, 9168786, 28567897, 3161211 ####[facility] [address] [place] [address] Anion gap [Moles/Vol] 12 mmol/L Normal 6-16 [facility] Comment on above: Performed By: #### 2 991263, 22549027, 8498778, 75323951, 4592942 ####[facility] [address] [place] [address] AST [Catalytic activity/Vol] 16 Int._Unit/L Normal 5-43 [facility] Comment on above: Performed By: #### 2 111868, 68456031, 3981039, 68323954, 9007884 ####[facility] [address] [place] [address] Bilirubin [Mass/Vol] 1.0 mg/dL Normal 0.0-1.1 [facility] Comment on above: Performed By: #### 2 250102, 19227910, 6310744, 40819514, 8174146 ####[facility] [address] [place] [address] Calcium [Mass/Vol] 8.7 mg/dL Low 8.9-11.1 [facility] Comment on above: Performed By: #### 2 122734, 44813130, 0279740, 87377127, 4062553 ####[facility] [address] [place] [address] Chloride [Moles/Vol] 107 mmol/L Normal 101-111 [facility] Comment on above: Performed By: #### 2 944002, 63103103, 9545546, 52471883, 1355154 ####[facility] [address] [place] [address] CO2 [Moles/Vol] 23 mmol/L Normal 21-31 [facility] Comment on above: Performed By: #### 2 673570, 93617914, 4002116, 48835741, 2519237 ####[facility] [address] [place] [address] Creatinine [Mass/Vol] 1.2 mg/dL Normal 0.5-1.3 [facility] Comment on above: Performed By: #### 2 387527, 62232262, 8763368, 08056814, 9709203 ####[facility] [address] [place] [address] Globulin (S) [Mass/Vol] 3.1 g/dL Normal 1.4-4.0 [facility] Comment on above: Performed By: #### 2 767708, 06102873, 8719627, 58157447, 4886368 ####[facility] [address] [place] [address] Glucose [Mass/Vol] 121 mg/dL Normal 55-199 [facility] Comment on above: Result Comment: If t his glucose result represents a fasting glucose, interpretation should refer to the following reference range: 55-99 mg/dL Performed By: #### 2 384424, 76540171, 7974789, 49045445, 8359559 ####[facility] [address] [place] [address] Potassium [Moles/Vol] 4.0 mmol/L Normal 3.5-5.3 [facility] Comment on above: Performed By: #### 2 080944, 33160478, 2285101, 54954477, 2850635 ####[facility] [address] [place] [address] Protein [Mass/Vol] 6.7 g/dL Normal 6.0-7.8 [facility] Comment on above: Performed By: #### 2 532623, 62175185, 2259642, 41588768, 0112091 ####[facility] [address] [place] [address] Sodium [Moles/Vol] 138 mmol/L Normal 135-145 [facility] Comment on above: Performed By: #### 2 734294, 82174720, 9162044, 91996747, 6400551 ####[facility] [address] [place] [address] Urea nitrogen [Mass/Vol] 26 mg/dL High 5-21 [facility] Comment on above: Performed By: #### 2 762478, 80763143, 2839708, 27630778, 6582296 ####[facility] [address] [place] [address] Urea nitrogen/Creatinine [Mass ratio] 22 No Units High 10-20 [facility] Comment on above: Performed By: #### 2 897188, 73610404, 4971494, 83543393, 8176182 ####[facility] [address] [place] [address] HEMATOLOGYOrdered By: SYSTEM SYSTEM on 06-05-2022 Basophils/100 [...] - 7.5 E9/L [facility] HemeAutoSS HEMATOLOGYOrdered By: Saan Plasencia on 06-05-2022 Erythrocyte distribution width (RBC) [...] HemeAutoSS Reference Laboratory Testing Ordered By: Chrissy DomainUseada on 06-05-2022 Cancer Ag 27-29 Qn 17.2 unit/mL Invalid Interpretation Code 0.0-38.6un it/mL [facility] SendOutsSS Comment on above: Result Comment: [facility] Immunochemiluminometric Methodology (ICMA) Values obtained with different assay methods or kits cannot be used interchangeably. Results cannot be interpreted as absolute evidence of the presence or absence of malignant disease. Performed at: [facility] [id number] PhD [place] Avelar eGFRon 06-05-2022 GFR/1.73 sq M.predicted among blacks MDRD (S/P/Bld) [Vol rate/Area] 54 mL/min/1.73 m2 Low >=59 [facility] Comment on above: Order Comment: Order added by Discern Expert. Result Comment: eGFR is race adjusted. AA=. Performed By: #### 2 056498, 36137167, 2348020, 89063225, 9805671 ####[facility] [address] [place] [address] GFR/1.73 sq M.predicted among non-blacks MDRD (S/P/Bld) [Vol rate/Area] 44 mL/min/1.73 m2 Low >=59 [facility] Comment on above: Order Comment: Order added by Discern Expert. 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 Kidney failure is indicated at less than 15 mL/min/1.73m2. Performed By: #### 2 399376, 30616047, 4352504, 04150593, 5676314 ####[facility] [address] [place] [address] CHEMISTRYOrdered By: SYSTEM SYSTEM on 05-07-2022 Albumin [Mass/Vol] 3.7 g/dL Normal 3.3 - 5.0 gm/dL FT Remisol Albumin/Globulin [Mass ratio] 1.2 {ratio} Normal 1.1 - 2.2 [facility] Remisol ALP [Catalytic activity/Vol] 74 [iU]/d Normal 21 - 98 Int._Unit/ L [facility] Remisol ALT No additional P-5'-P [Catalytic activity/Vol] [...] 49 mL/min/1.73 m2 Low >=59mL/min /1.73 m2 [facility] Chem S GFR/1.73 sq M.predicted among non-blacks MDRD (S/P/Bld) [Vol rate/Area] 40 mL/min/1.73 m2 Low >=59mL/min /1.73 m2 [facility] Chem S Globulin (S) [Mass/Vol] 3.2 g/dL [...] 46.9 % Normal 36.0 - 75.0 % FT HemeAutoSS Neutrophils/Leukocytes Auto (Bld) [Pure # fraction] 2.2 E9/L Normal 2.0 - 7.5 E9/L [facility] HemeAutoSS HEMATOLOGYOrdered By: Fausto Lyle on 04-05-2022 Erythrocyte distribution width (RBC) [Ratio] 14.1 % Normal 10.9 - 14.2 % FT HemeAutoSS Hematocrit (Bld) [Volume fraction] 41.6 % Normal 34.0 - 46.0 % [facility]eAutoSS Hemoglobin (Bld) [Mass/Vol] 13.8 g/dL Normal 12.0 - 16.0 gm/dL [facility]eAutoSS MCH (RBC) [Entitic mass] 30.9 pg Normal 27.0 - 34.0 pg [facility]eAuto[facility] MCHC (RBC) [Mass/Vol] 33.1 g/dL Normal 31.4 - 36.0 gm/dL FT HemeAutoSS MCV (RBC) [Entitic vol] 93.2 fL Normal 80.0 - 100.0 fL [facility]eAutoSS Platelet mean volume (Bld) [Entitic vol] 7.5 fL Normal 6.4 - 10.8 fL FT HemeAutoSS Platelets (Bld) [#/Vol] 173.0 E9/L Normal 150. 0 - 500.0 E9/L [facility]eAutoSS RBC (Bld) [#/Vol] 4.5 E12/L Normal 4.3 - 5.9 E12/L FT HemeAutoSS WBC corrected for nucl RBC Auto (Bld) [#/Vol] 4.8 E9/L Normal 4.0 - 11.0 E9/L FT HemeAutoSS CHEMISTRYOrdered By: SYSTEM SYSTEM on 12-26-2021 [...] 38 mL/min/1.73 m2 Low >=59mL/min /1.73 m2 [facility] Chem S GFR/1.73 sq M.predicted among non-blacks MDRD (S/P/Bld) [Vol rate/Area] 32 mL/min/1.73 m2 Low >=59mL/min /1.73 m2 [facility] Chem S Globulin (S) [Mass/Vol] 3.5 g/dL [...] 41 mL/min/1.73 m2 Low >=59mL/min /1.73 m2 FT Chem S GFR/1.73 sq M.predicted among non-blacks MDRD (S/P/Bld) [Vol rate/Area] 34 mL/min/1.73 m2 Low >=59mL/min /1.73 m2 FT Chem S Globulin (S) [Mass/Vol] 3.2 g/dL Normal 1.4 - 4.0 gm/dL FT Remisol Glucose [Mass/Vol] 122 mg/dL Normal 55 - 199 mg/dL FT Remisol Potassium [Moles/Vol] 4.6 mmol/L Normal 3.5 [...] 45 mL/min/1.73 m2 Low >=59mL/min /1.73 m2 FT [...] 7.8 fL Normal 6.4 - 10.8 fL [facility] HemeAutoSS Platelets (Bld) [#/Vol] 317.0 E9/L Normal 150. 0 - 500.0 E9/L FT HemeAutoSS Comment on above: Result Comment: Plat elet count verified using smear estimate. 10/02/2021 15:55:05 EDT RBC (Bld) [#/Vol] 4.2 E12/L Low 4.3 - 5.9 E12/L [facility] HemeAutoSS WBC corrected for nucl RBC Auto (Bld) [#/Vol] 4.0 E9/L Normal 4.0 - 11.0 E9/L [facility] HemeAutoSS Clinic Note - Heme Onc Ollie payton 08-28-2021 Clinic Note - Heme Onc Scheduling Retrieve Patient Instructions: Patient Instructions: Patient Instructions: RetrievePatient Instructions Instructions It was a pleasure meeting you today. Thank you for allowing me to take part in your care. Please contact our office if you have any questions or concerns going forward. End of Visit Documentation: Clinic Location/Phone Number: Clinic Location/Phone Number: [facility] End Of Visit MU Report Item: Visit Summary given or mailed to patientyes Mailed to patient Electronic Signatures: Isa Wong (SEC) (Signed 28-Aug-2021 16:01) Authored: Retrieve Patient Instructions, End of Visit Documentation Last Updated: 28-Aug-2021 16:01 by Isa Wong) Normal [facility] Clinic Note - Heme Onc-New Evaristo king 08-28-2021 Clinic Note - Heme Onc-New Visit Patient Visit Information: Visit Type: New Visit Cancer History: Breast AJCC Edition: 8th (AJCC), Diagnosis Date: August 2021, Stage(no match), pM1 G2 History of Present Illness: ID Statement: null is a () day old null Interval History: BREAST CANCER DIAGNOSIS metastatic ER+/ME+/HER2- breast cancer ([id number]) CONSULTING ONCOLOGIST Dr David Caldera CURRENT THERAPY anastrozole/ribociclib x 3 weeks HPI Patient is a pleasant 71 y/o woman here for a 2nd opinion. She presented on 06/29/21 with a 4.2cm mass in the right breast which she had for >1 year. Biopsy revealed ER/ME >95%/HER2- breast cancer. Also has known h/p [...] corresponding to (more content not included)... Normal [facility] Clinic Note - Intakeon 08-28 Clinic Note [...] (kg/m2)39 kg/M2 BSA (m2)2.08 M2 Nursing Verification [id number] Nursing Verification Height in cm159 centimeter(s) SpO2 (%)98 % SpO2 Patient Onroom air Pain Screening: Patient States Painno (0) Data Typist for intimate exam offered to patient: Patient [...] are livingno Depression: Past 2 wks: [place] down, depressed or hopelessno Past 2 wks: [place] little interest/pleasure doing thingsno Any Thoughts of [...] 13:21) Authored: Patient Visit Information, Vital Signs, Data Typist, Allergies, Outpatient Medication Profile, Notification, Travel History, Falls, Spiritual/Procedural, Adv Dir, Violence, Depression, Substance, Nutrition/Learning Lisette Valle (RN) (Signed 28-Aug-2021 15:47) Authored: Vital Signs, Notification Co-Signer: Patient Visit Information, Vital Signs, Data Typist, Allergies, Outpatient Medication Profile, Notification, Travel History, Falls, Spiritual/Procedural, Adv Dir, Violence, Depression, Substance, Nutrition/Learning Last Updated: 28-Aug-2021 15:47 by Lisette Valle (RN) Normal [facility] Narrative Note - Outpatient- Community Health Workeron 08-25-2021 Narrative Note - Outpatient-Community Health Worker Narrative Note: [facility] Best way to contact patient#[id number] Veteranno Has patient been seen by a [...] spelled wrong and that it should list Rebeka not Koburn. Electronic Signatures: Leroy Gallegos (COOR) (Signed 25-Aug-2021 11:50) Authored: CHW Last Updated: 25-Aug-2021 11:50 by Leroy Gallegos (COOR) Normal [facility] CHEMISTRYOrdered By: SYSTEM SYSTEM on 08-21-2021 Albumin [Mass/Vol] 3.5 g/dL Normal 3.3 - 5.0 gm/dL FT Remisol Albumin/Globulin [Mass ratio] 1.1 {ratio} Normal [...] 10 - 20 [facility] Remisol HEMATOLOGYOrdered By: [facility] SYSTEM on 08-21-2021 Basophils/100 WBC (Bld) 1.1 [...] 33.5 g/dL Normal 31.4 - 36.0 gm/dL FT HemeAutoSS MCV (RBC) [Entitic vol] 88.9 fL Normal 80.0 - 100.0 fL [facility] HemeAutoSS Platelet mean volume (Bld) [Entitic vol] 7.9 fL Normal 6.4 - 10.8 fL [facility] HemeAutoSS Platelets (Bld) [#/Vol] 185.0 E9/L Normal 150. 0 - 500.0 E9/L [facility] HemeAutoSS RBC (Bld) [#/Vol] 4.6 E12/L Normal 4.3 - 5.9 E12/L [facility] HemeAutoSS WBC corrected for nucl RBC Auto (Bld) [#/Vol] 7.6 E9/L Normal 4.0 - 11.0 E9/L [facility] HemeAutoSS Nurse Navigator - Breast-Sec ond Opinionon [...] explained role within the multidisciplinary team at [facility]; reviewed upcoming appointment with Dr. Seay, [...] RHONDA Mendenhall, RN Electronic Signatures: Aliya Dobson (CN) (Signed 16-Aug-2021 11:34) Authored: Care Navigation, Barriers to Care, Interventions, Team Communications/Referrals, Preview Last Updated: 16-Aug-2021 11:34 by Aliya Dobson (DELGADO) Normal [facility] CHEMISTRYOrdered By: SYSTEM SYSTEM on 08-07-2021 Albumin [...] 59 mL/min/1.73 m2 Normal >=59mL/min /1.73 m2 [facility] Chem S GFR/1.73 sq M.predicted among non-blacks MDRD (S/P/Bld) [Vol rate/Area] 49 mL/min/1.73 m2 Low >=59mL/min /1.73 m2 [facility] Chem S Globulin (S) [Mass/Vol] 3.4 g/dL Normal 1.4 - 4.0 gm/dL [facility] Remisol Glucose [Mass/Vol] 151 mg/dL Normal 55 - 199 mg/dL [facility] [...] 34.0 pg [facility]eAutoSS MCHC (RBC) [Mass/Vol] 33.9 g/dL Normal [...] 4.9 E12/L Normal 4.3 - 5.9 E12/L [facility]eAutoSS WBC corrected for nucl RBC Auto (Bld) [#/Vol] 6.1 E9/L Normal 4.0 - 11.0 E9/L [facility]eAuto[facility] Vital Signs Date Time Vital Sign Value Performing Clinician Facility 05-31-2023 08:36-0500 Body height 160.02 cm MD Mary Rodriguez Work Phone: [facility] 05-31-2023 08:36-0500 Body weight 86.18 kg MD Mary Rodriguez Work Phone: [facility] 05-01-2023 14:03-0500 Heart rate 70 /[facility]-01-[facility] 14:03-0500 SaO2% (BldA) [Mass fraction] 98 % [facility] 05-01-2023 14:02-0500 Body temperature 98.24 [degF] Senthil Caldera [facility] 05-01-2023 14:02-0500 Diastolic blood pressure 81 mm[Hg] [facility] 05-01-2023 14:02-0500 Mean blood pressure 93 mm[Hg] [facility] 05-01-2023 14:02-0500 Systolic blood pressure 118 mm[Hg] [facility] 01-30-2023 14:25-0400 Heart rate 76 /min [facility] 01-30-2023 14:25-0400 SaO2% (BldA) [Mass fraction] 96 % [facility] 01-30-2023 14:25-0400 Diastolic blood pressure 61 mm[Hg] [facility] 01-30-2023 14:25-0400 Mean blood pressure 79 mm[Hg] [facility] 01-30-2023 14:25-0400 Systolic blood pressure 115 mm[Hg] [facility] 01-30-2023 14:25-0400 Body temperature 97.7 [degF] [facility] 01-30-2023 14:00-0400 Blood Pressure Location [facility] 01-30-2023 14:00-0400 Respiratory rate 16 /min [facility] 12-23-2022 10:15-0400 Hourly Rounding Mbanefo OJUKWU [facility] 12-23-2022 10:15-0400 Promise to Return Mbanefo OJUKWU [facility] 12-23-2022 09:00-0400 Hourly Rounding Mbanefo OJUKWU [facility] 12-23-2022 09:00-0400 Promise to Return Mbanefo OJUKWU [facility] 12-23-2022 08:46-0400 Diastolic blood pressure 64 mm[Hg] Mbanefo OJUKWU [facility] 12-23-2022 08:46-0400 Systolic blood pressure 96 mm[Hg] [facility]banefo OJUKW[facility] 12-23-2022 08:40-0400 gluc 111 mg/dL Mbanefo OJUKWU [facility] 12-23-2022 08:37-0400 Heart rate 56 /min Mbanefo OJUKWU [facility] 12-23-2022 08:37-0400 SaO2% (BldA) [Mass fraction] 96 % Mbanefo OJUKW[facility] 12-23-2022 08:37-0400 Respiratory rate 18 /min Mbanefo OJUKW[facility] 12-23-2022 08:37-0400 Body temperature 97.88 [degF] [facility]efo [facility]JUKW[facility] 12-23-2022 08:37-0400 Diastolic blood pressure 64 mm[Hg] [facility]efo OJUKW[facility] 12-23-2022 08:37-0400 Mean blood pressure 74 mm[Hg] [facility]efo OJUKW[facility] 12-23-2022 08:37-0400 Systolic blood pressure 96 mm[Hg] Mbanefo OJUKWU [facility] 12-23-2022 08:00-0400 Hourly Rounding Mbanefo OJUKWU [facility] 12-23-2022 08:00-0400 Promise to Return Mbanefo OJUKWU [facility] 12-22-2022 23:44-0400 Heart rate 58 /min Mbanefo [facility]JUKW[facility] 12-22-2022 23:44-0400 SaO2% (BldA) [Mass fraction] 97 % Mbanefo OJUKW[facility] 12-22-2022 23:44-0400 Body temperature 98.06 [degF] [facility]efo [facility]UKW[facility] 12-22-2022 23:44-0400 Diastolic blood pressure 60 mm[Hg] [facility]efo [facility]UKW[facility] 12-22-2022 23:44-0400 Mean blood pressure 72 mm[Hg] [facility]efo [facility]JUKW[facility] 12-22-2022 23:44-0400 Systolic blood pressure 96 mm[Hg] M[facility]efo OJUKW[facility] 12-22-2022 19:33-0400 Heart rate 62 /min Mbanefo OJUKW[facility] 12-22-2022 19:33-0400 SaO2% (BldA) [Mass fraction] 97 % Mbanefo OJUKWU [facility] 12-22-2022 19:33-0400 Body temperature 98.24 [degF] Mbanefo OJUKWU [facility] 12-22-2022 19:32-0400 Mean blood pressure 69 mm[Hg] Mbanefo OJUKWU [facility] 12-22-2022 16:03-0400 gluc 129 mg/dL Mbanefo OJUKW[facility] 12-22-2022 15:46-0400 Respiratory rate 16 /min Mbanefo OJUKWU [facility] 12-22-2022 11:52-0400 gluc 158 mg/dL Mbanefo OJUKWU [facility] 12-22-2022 11:13-0400 Respiratory rate 13 /min Mbanefo OJUKW[facility] 12-22-2022 06:56-0400 Blood Pressure Location [facility]o [facility] [facility] 12-22-2022 06:56-0400 Body temperature 98.42 [degF] Mbanefo OJUKWU [facility] 12-22-2022 06:56-0400 Mean blood pressure 85 mm[Hg] Mbanefo OJUKWU [facility] 12-21-2022 23:00-0400 Blood Pressure Location Mbanefo OJUKWU [facility] 12-21-2022 23:00-0400 Body temperature 98.96 [degF] Mbanefo OJUKWU [facility] 12-21-2022 23:00-0400 Mean blood pressure 84 mm[Hg] Mbanefo OJUKWU [facility] 12-21-2022 05:35-0400 Mean blood pressure 79 mm[Hg] Mbanefo OJUKWU [facility] 12-20-2022 21:08-0400 Body temperature 97.7 [degF] Mbanefo OJUKWU [facility] 12-20-2022 21:08-0400 Heart rate 65 /min Mbanefo OJUKWU [facility] 12-20-2022 15:06-0400 Heart rate 75 /min Nic WALTERU [facility] 12-20-2022 00:45-0400 Diastolic blood pressure 72 mm[Hg] David Ran [facility] 12-20-2022 00:45-0400 Heart rate 76 /min David Ran [facility] 12-20-2022 00:45-0400 Mean blood pressure 89 mm[Hg] David Ran [facility] 12-20-2022 00:45-0400 Respiratory rate 14 /min David Ran [facility] 12-20-2022 00:45-0400 SaO2% (BldA) [Mass fraction] 100 % David Ran [facility] 12-20-2022 00:45-0400 Systolic blood pressure 124 mm[Hg] David Ran [facility] 12-20-2022 00:15-0400 Diastolic blood pressure 70 mm[Hg] David Ran [facility] 12-20-2022 00:15-0400 Heart rate 71 /min David Ran [facility] 12-20-2022 00:15-0400 Mean blood pressure 92 mm[Hg] David Ran [facility] 12-20-2022 00:15-0400 Respiratory rate 14 /min David Ran [facility] 12-20-2022 00:15-0400 SaO2% (BldA) [Mass fraction] 92 % David Ran [facility] 12-20-2022 00:15-0400 Systolic blood pressure 137 mm[Hg] David Ran [facility] 12-19-2022 23:45-0400 Diastolic blood pressure 61 mm[Hg] David Tong [facility] 12-19-2022 23:45-0400 Heart rate 80 /min David Tong [facility] 12-19-2022 23:45-0400 Mean blood pressure 85 mm[Hg] David Tnog [facility] 12-19-2022 23:45-0400 Respiratory rate 16 /min David Tong [facility] 12-19-2022 23:45-0400 SaO2% (BldA) [Mass fraction] 97 % David Tong [facility] 12-19-2022 23:45-0400 Systolic blood pressure 132 mm[Hg] David Tong [facility] 12-19-2022 20:41-0400 Body temperature 98.24 [degF] David Tong [facility] 12-19-2022 20:41-0400 Heart rate 82 /min David Tong [facility] 12-19-2022 20:41-0400 Respiratory rate 20 /min David Tong [facility] 12-17-2022 13:20-0400 Diastolic blood pressure 77 mm[Hg] Jeffery Murphy [facility] 12-17-2022 13:20-0400 Heart rate 60 /min Jeffery Murphy [facility] 12-17-2022 13:20-0400 Hourly Rounding Jeffery Murphy [facility] 12-17-2022 13:20-0400 Mean blood pressure 95 mm[Hg] Jeffery Murphy [facility] 12-17-2022 13:20-0400 Promise to Return Jeffery Katehrine [facility] 12-17-2022 13:20-0400 SaO2% (BldA) [Mass fraction] 97 % Jeffery Katherine [facility] 12-17-2022 13:20-0400 Systolic blood pressure 132 mm[Hg] Jeffery Katherine [facility] 12-17-2022 12:20-0400 Diastolic blood pressure 71 mm[Hg] Jeffery Kathernie [facility] 12-17-2022 12:20-0400 Heart rate 71 /min Jeffery Katherine [facility] 12-17-2022 12:20-0400 Hourly Rounding Jeffery Katherine [facility] 12-17-2022 12:20-0400 Mean blood pressure 86 mm[Hg] Jeffery Katherine [facility] 12-17-2022 12:20-0400 Promise to Return Jeffery Katherine [facility] 12-17-2022 12:20-0400 SaO2% (BldA) [Mass fraction] 96 % Jeffery Katherine [facility] 12-17-2022 12:20-0400 Systolic blood pressure 117 mm[Hg] Jeffery Katherine [facility] 12-17-2022 11:21-0400 Hourly Rounding Jeffery Katherine [facility] 12-17-2022 11:21-0400 Promise to Return Jeffery Katherine [facility] 12-17-2022 11:20-0400 Diastolic blood pressure 84 mm[Hg] Jeffery Katherine [facility] 12-17-2022 11:20-0400 Heart rate 68 /min Jeffery Murphy [facility] 12-17-2022 11:20-0400 Mean blood pressure 99 mm[Hg] Jeffery Murphy [facility] 12-17-2022 11:20-0400 Respiratory rate 18 /min Jeffery Murphy [facility] 12-17-2022 11:20-0400 SaO2% (BldA) [Mass fraction] 96 % Jeffery Castelane [facility] 12-17-2022 11:20-0400 Systolic blood pressure 130 mm[Hg] Jeffery Murphy [facility] 12-17-2022 10:22-0400 Body temperature 97.88 [degF] Jeffery Murphy [facility] 12-17-2022 10:22-0400 Heart rate 69 /min Jeffery Murphy [facility] 12-17-2022 10:22-0400 Respiratory rate 18 /min Jeffery Murphy [facility] 11-04-2022 14:00-0400 Hourly Rounding Ronobir JESSICA [facility] 11-04-2022 13:40-0400 Hourly Rounding Ronobir JESSICA [facility] 11-04-2022 13:40-0400 Promise to Return Ronobir JESSICA [facility] 11-04-2022 13:00-0400 Hourly Rounding Ronobir JESSICA [facility] 11-04-2022 12:26-0400 Promise to Return Ronobir JESSICA [facility] 11-04-2022 11:48-0400 Heart rate 78 /min Ronobir JESSICA [facility] 11-04-2022 11:48-0400 SaO2% (BldA) [Mass fraction] 95 % Ronobir JESSICA [facility] 11-04-2022 11:48-0400 Diastolic blood pressure 83 mm[Hg] Ronobir JESSICA [facility] 11-04-2022 11:48-0400 Mean blood pressure 96 mm[Hg] Ronobir JESSICA [facility] 11-04-2022 11:48-0400 Systolic blood pressure 122 mm[Hg] Ronobir JESSICA [facility] 11-04-2022 11:48-0400 Body temperature 98.24 [degF] Ronobir JESSICA [facility] 11-04-2022 11:17-0400 Promise to Return Ronobir JESSICA [facility] 11-04-2022 08:24-0400 Diastolic blood pressure 78 mm[Hg] Ronobir JESSICA [facility] 11-04-2022 08:24-0400 Systolic blood pressure 127 mm[Hg] Ronobir JESSICA [facility] 11-04-2022 07:32-0400 Heart rate 77 /min Ronobir JESSICA [facility] 11-04-2022 07:32-0400 SaO2% (BldA) [Mass fraction] 94 % Ronobir JESSICA [facility] 11-04-2022 07:31-0400 Body temperature 97.7 [degF] Ronobir JESSICA [facility] 11-04-2022 07:31-0400 Diastolic blood pressure 78 mm[Hg] Ronobir JESSICA [facility] 11-04-2022 07:31-0400 Mean blood pressure 94 mm[Hg] Ronobir JESSICA [facility] 11-04-2022 07:31-0400 Systolic blood pressure 127 mm[Hg] Ronobir JESSICA [facility] 11-03-2022 23:16-0400 Heart rate 79 /min Ronobir JESSICA [facility] 11-03-2022 23:16-0400 SaO2% (BldA) [Mass fraction] 97 % Ronobir JESSICA [facility] 11-03-2022 23:16-0400 Mean blood pressure 108 mm[Hg] Ronobir JESSICA [facility] 11-03-2022 23:15-0400 Body temperature 97.7 [degF] Ronobir JESSICA [facility] 11-03-2022 20:00-0400 Blood Pressure Location Ronobir JESSICA [facility] 11-03-2022 20:00-0400 Respiratory rate 21 /min Ronobir JESSICA [facility] 11-03-2022 09:00-0400 Mean blood pressure 87 mm[Hg] Ronobir JESSICA [facility] 11-03-2022 09:00-0400 Respiratory rate 16 /min Ronobir JESSICA [facility] 11-02-2022 21:15-0400 Mean blood pressure 95 mm[Hg] Ronobir JESSICA [facility] 11-02-2022 11:51-0400 Respiratory rate 18 /min Ronobir JESSICA [facility] 11-02-2022 03:50-0400 Heart rate 68 /min Ronobir JESSICA [facility] 11-02-2022 03:18-0400 Respiratory rate 10 /min Ronobir JESSICA [facility] 11-02-2022 02:38-0400 Nursing Progress Note Reason Other: pt complains of back pain. repositioned in bed. medicated for pain. Ronobir JESSICA [facility] 11-02-2022 02:38-0400 Respiratory rate 7 /min Ronobir JESSICA [facility] 11-02-2022 02:37-0400 Heart rate 73 /min Ronobir JESSICA [facility] 11-01-2022 23:15-0400 Nursing Progress Note Reason Other: trauma made medical at this time. mini cath done and urine sent to lab. pt repositioned in bed Ronobir JESSICA [facility] 11-01-2022 22:53-0400 Body temperature 96.62 [degF] Ronobir JESSICA [facility] 11-01-2022 22:53-0400 Heart rate 74 /min Ronobir JESSICA [facility] 11-01-2022 22:03-0400 Heart rate 69 /min Ronobir JESSICA [facility] 08-01-2022 13:00-0400 Blood Pressure Location Senthil Caldera [facility] 08-01-2022 13:00-0400 Body temperature 98.6 [degF] [facility] 13:00-0400 Diastolic blood pressure 84 mm[Hg] [facility] 08-01-[facility] 13:00-0400 Heart rate 76 /min [facility] 08-01-2022 13:00-0400 Mean blood pressure 101 mm[Hg] [facility] 08-01-2022 13:00-0400 Respiratory rate 16 /min [facility] 08-01-2022 13:00-0400 SaO2% (BldA) [Mass fraction] 97 % [facility] 08-01-2022 13:00-0400 Systolic blood pressure 136 mm[Hg] [facility] 06-06-2022 12:59-0500 Heart rate 61 /min [facility] 06-06-2022 12:59-0500 SaO2% (BldA) [Mass fraction] 98 % [facility] 06-06-2022 12:59-0500 Respiratory rate 16 /min [facility] 06-06-2022 12:59-0500 Body temperature 97.7 [degF] [facility] 06-06-2022 12:58-0500 Diastolic blood pressure 106 mm[Hg] [facility] 06-06-2022 12:58-0500 Mean blood pressure 116 mm[Hg] [facility] 06-06-2022 12:58-0500 Systolic blood pressure 137 mm[Hg] [facility] 03-28-2022 14:10-0500 Heart rate 66 /min [facility] 03-28-2022 14:10-0500 SaO2% (BldA) [Mass fraction] 96 % [facility] 03-28-2022 14:09-0500 Body temperature 98.42 [degF] Senthil Caldera [facility] 03-28-2022 14:09-0500 Diastolic blood pressure 77 mm[Hg] Senthil Caldera [facility] 03-28-2022 14:09-0500 Mean blood pressure 93 mm[Hg] [facility] 03-28-2022 14:09-0500 Systolic blood pressure 127 mm[Hg] [facility] 03-28-2022 14:09-0500 Blood Pressure [facility] 03-28-2022 14:09-0500 Body temperature 98.42 [degF] [facility] 03-28-2022 14:09-0500 Mean blood pressure 94 mm[Hg] [facility] 03-28-2022 14:09-0500 Respiratory rate 18 /min [facility] 01-18-2022 14:13-0400 Blood Pressure [facility] 01-18-2022 14:13-0400 Body temperature 98.06 [degF] [facility] 01-18-2022 14:13-0400 BP/Pulse Patient Position [facility] 01-18-2022 14:13-0400 Diastolic blood pressure 82 mm[Hg] [facility] 01-18-2022 14:13-0400 Heart rate 59 /min [facility] 01-18-2022 14:13-0400 Mean blood pressure 98 mm[Hg] [facility] 01-18-2022 14:13-0400 Respiratory rate 16 /min [facility] 01-18-2022 14:13-0400 SaO2% (BldA) [Mass fraction] 98 % [facility] 01-18-2022 14:13-0400 Systolic blood pressure 131 mm[Hg] [facility] 12-21-2021 13:34-0400 Blood Pressure Location Nohemi Garcia [facility] 12-21-2021 13:34-0400 Body temperature 98.6 [degF] Nohemi Garcia [facility] 12-21-2021 13:34-0400 BP/Pulse Patient Position Nohemi Garcia [facility] 12-21-2021 13:34-0400 Diastolic blood pressure 85 mm[Hg] Nohemi Garcia [facility] 12-21-2021 13:34-0400 Heart rate 67 /min Nohemi Garcia [facility] 12-21-2021 13:34-0400 Mean blood pressure 101 mm[Hg] Nohemi Garcia [facility] 12-21-2021 13:34-0400 Respiratory rate 18 /min Nohemi Garcia [facility] 12-21-2021 13:34-0400 SaO2% (BldA) [Mass fraction] 93 % Nohemi Garcia [facility] 12-21-2021 13:34-0400 Systolic blood pressure 132 mm[Hg] Nohemi Garcia [facility] 12-21-2021 13:34-0400 Mean blood pressure 101 mm[Hg] Nohemi Garcia [facility] 11-30-2021 13:16-0400 Body temperature 98.24 [degF] Senthil Caldera [facility] 11-30-2021 13:16-0400 Diastolic blood pressure 79 mm[Hg] Senthil Caldera [facility] 11-30-2021 13:16-0400 Heart rate 78 /min Senthil Caldera [facility] 11-30-2021 13:16-0400 Mean blood pressure 98 mm[Hg] Senthil Caldera [facility] 11-30-2021 13:16-0400 SaO2% (BldA) [Mass fraction] 96 % Senthilleopoldo Caldera [facility] 11-30-2021 13:16-0400 Systolic blood pressure 136 mm[Hg] Senthil Caldera [facility] 11-30-2021 13:00-0400 Blood Pressure Location Senthil Caldera [facility] 11-30-2021 13:00-0400 Respiratory rate 16 /min Senthil Caldera [facility] 11-02-2021 11:53-0400 Blood Pressure Location Nohemi Garcia [facility] 11-02-2021 11:53-0400 Body temperature 98.06 [degF] Nohemi Garcia [facility] 11-02-2021 11:53-0400 BP/Pulse Patient Position Nohemi Gracia [facility] 11-02-2021 11:53-0400 Diastolic blood pressure 64 mm[Hg] Nohemi Urbinake [facility] 11-02-2021 11:53-0400 Heart rate 64 /min Nohemi Urbinake [facility] 11-02-2021 11:53-0400 Mean blood pressure 89 mm[Hg] Nohemi Felizboske [facility] 11-02-2021 11:53-0400 Respiratory rate 17 /min Nohemi Felizboske [facility] 11-02-2021 11:53-0400 SaO2% (BldA) [Mass fraction] 97 % Nohemi Urbinake [facility] 11-02-2021 11:53-0400 Systolic blood pressure 140 mm[Hg] Nohemi Felizboske [facility] 10-05-2021 13:46-0400 Body temperature 98.42 [degF] [facility] 10-05-2021 13:46-0400 Diastolic blood pressure 83 mm[Hg] [facility] 10-05-2021 13:46-0400 Heart rate 69 /min [facility] 10-05-2021 13:46-0400 Mean blood pressure 104 mm[Hg] [facility] 10-05-2021 13:46-0400 SaO2% (BldA) [Mass fraction] 96 % [facility] 10-05-2021 13:46-0400 Systolic blood pressure 146 mm[Hg] [facility] 09-07-2021 12:48-0400 Body temperature 98.6 [degF] [facility] 09-07-2021 12:48-0400 Diastolic blood pressure 70 mm[Hg] [facility] 09-07-2021 12:48-0400 Heart rate 72 /min [facility] 09-07-2021 12:48-0400 Mean blood pressure 83 mm[Hg] [facility] 09-07-2021 12:48-0400 SaO2% (BldA) [Mass fraction] 96 % [facility] 09-07-2021 12:48-0400 Systolic blood pressure 109 mm[Hg] [facility] 09-07-2021 12:00-0400 Heart rate 69 /min [facility] 09-07-2021 12:00-0400 SaO2% (BldA) [Mass fraction] 98 % [facility] 09-03-2021 00:20-0400 Body temperature 98.78 [degF] Carlos Jaureguiner [facility] 09-03-2021 00:20-0400 Diastolic blood pressure 80 mm[Hg] Carlos Salazar [facility] 09-03-2021 00:20-0400 Heart rate 86 /min Carlos Salazar [facility] 09-03-2021 00:20-0400 Respiratory rate 16 /min Carlos Martin [facility] 09-03-2021 00:20-0400 SaO2% (BldA) [Mass fraction] 95 % Carlos Martin [facility] 09-03-2021 00:20-0400 Systolic blood pressure 146 mm[Hg] Carlos Salazar [facility] 08-10-2021 12:35-0400 Body temperature 98.06 [degF] Rickey Askew [facility] 08-10-2021 12:35-0400 Diastolic blood pressure 72 mm[Hg] Rickey Askew [facility] 08-10-2021 12:35-0400 Heart rate 77 /min Rickey Askew [facility] 08-10-2021 12:35-0400 Mean blood pressure 84 mm[Hg] Rickey Askew [facility] 08-10-2021 12:35-0400 Respiratory rate 12 /min Rickey Askew [facility] 08-10-2021 12:35-0400 SaO2% (BldA) [Mass fraction] 97 % Rickey Askew [facility] 08-10-2021 12:35-0400 Systolic blood pressure 108 mm[Hg] Rickey Askew [facility] 07-26-2021 10:27-0400 Body temperature 97.88 [degF] Senthil Caldera [facility] 07-26-2021 10:27-0400 Diastolic blood pressure 84 mm[Hg] [facility] 07-26-2021 10:27-0400 Heart rate 59 /min [facility] 07-26-2021 10:27-0400 Mean blood pressure 112 mm[Hg] [facility] 07-26-2021 10:27-0400 SaO2% (BldA) [Mass fraction] 97 % [facility] 07-26-2021 10:27-0400 Systolic blood pressure 169 mm[Hg] [facility] 07-26-2021 10:00-0400 Respiratory rate 16 /[facility] 07-18-2021 12:18-0400 Body temperature 97.7 [degF] [facility] 07-18-2021 12:18-0400 Diastolic blood pressure 83 mm[Hg] [facility] 07-18-2021 12:18-0400 Heart rate 60 /min [facility] 07-18-2021 12:18-0400 Mean blood pressure 106 mm[Hg] [facility] 07-18-2021 12:18-0400 SaO2% (BldA) [Mass fraction] 98 % [facility] 07-18-2021 12:18-0400 Systolic blood pressure 152 mm[Hg] [facility] 07-18-2021 12:00-0400 Respiratory rate 16 /min [facility] 07-11-2021 10:20-0400 Body temperature 97.7 [degF] Gavino TABOR [facility] General Surgery [place] Encounters Encounter Date Encounter Type Care Provider Facility Start: 05-31-2023 External Result Encounter Senthil Caldera DO Work Phone: [facility] External Department Unsolicited Start: 05-31-2023 External Result Encounter Senthil Caldera DO Work Phone: [facility] External Department Unsolicited Start: 05-31-2023 End: 05-31-2023 ambulatory Mary Rodriguez Facility:[facility] Start: 05-31-2023 End: 05-31-2023 ambulatory MD Mary Rodriguez Work Phone: [facility] Work Phone: Start: 05-31-2023 End: 05-31-2023 Patient encounter procedure MD Mary Rodriguez Work Phone: [facility] Work Phone: Start: 05-24-2023 Clinisync Result Encounter Mary Rodriguez MD Work Phone: [facility] External Department Unsolicited Start: 05-24-2023 Clinisync Result Encounter Mary Rodriguez MD Work Phone: [facility] External Department Unsolicited Start: 05-01-2023 End: 05-02-2023 ambulatory Senthil Caldera Facility:[facility] Start: 05-01-2023 End: 05-01-2023 Patient encounter procedure Senthil Caldera [facility] Start: 01-30-2023 End: 01-31-2023 ambulatory Senthil Caldera Facility:[facility] Start: 01-30-2023 End: 01-30-2023 Patient encounter procedure Senthil Caldera [facility] Start: 12-20-2022 End: 12-23-2022 Evaluation and management of inpatient Zaheer Sloan Facility:[facility] Start: 12-20-2022 End: 12-23-2022 Evaluation and management of inpatient Nic TomlinJUKWU [facility] Start: 12-19-2022 End: 12-20-2022 Emergency department patient visit David Tong Facility:[facility] Start: 12-19-2022 End: 12-20-2022 Emergency department patient visit David Tong [facility] Start: 12-17-2022 End: 12-17-2022 Emergency department patient visit Jeffery Murphy Facility:[facility] Start: 12-17-2022 End: 12-17-2022 Emergency department patient visit Jeffery Murphy [facility] Start: 12-14-2022 End: 12-15-2022 ambulatory Sammythea QUEZADA Facility:[id number] Start: 12-14-2022 End: 12-14-2022 Manual pelvic examination [facility]a [facility] Start: 12-05-2022 ambulatory Lorie Wright y:CD:[id number] Start: 11-16-2022 End: 12-16-2022 ambulatory Senthil Caldera Facility:[id number] Start: 11-16-2022 End: 12-16-2022 In-Between Visit Rickey Askew [facility] Start: 11-06-2022 End: 11-07-2022 ambulatory Sammythea QUEZADA Facility:[id number] Start: 11-06-2022 End: 11-06-2022 Off-Site Sammy [facility] Start: 11-04-2022 End: 12-15-2022 ambulatory Sammy CABAWOOD Facility:[facility] Start: 11-01-2022 End: 11-04-2022 ambulatory Wyatt Murray Facility:[facility] Start: 11-01-2022 End: 11-04-2022 Observation Mariia LOPEZ [facility] Start: 09-27-2022 End: 09-28-2022 ambulatory Nohemi Garcia Facility:[facility] Start: 09-25-2022 End: 09-26-2022 ambulatory Senthil Caldera Facility:[facility] Start: 09-25-2022 End: 09-25-2022 Patient encounter procedure Senthil Mgeligio [facility] Start: 09-08-2022 End: 09-08-2022 Emergency department patient visit Pedro Nava Facility:[facility] Start: 09-08-2022 End: 09-09-2022 ambulatory Senthilleopoldo Hollidayjuliaflaquito Facility:[facility] Start: 08-01-2022 End: 08-02-2022 ambulatory Senthil Hollidayjuliaflaquito Facility:[facility] Start: 08-01-2022 End: 08-01-2022 Patient encounter procedure Senthil Caldera [facility] Start: 07-30-2022 End: 07-31-2022 ambulatory Senthil Hollidayjuliaflaquito Facility:[facility] Start: 07-30-2022 End: 07-30-2022 Patient encounter procedure Senthil Mgeligio [facility] Start: 07-25-2022 End: 10-24-2022 ambulatory Senthil Hollidayjuliaflaquito Facility:[facility] Start: 07-25-2022 End: 10-23-2022 Recurring Senthil Caldera [facility] Start: 07-09-2022 End: 07-10-2022 ambulatory Senthilleopoldo Hollidayjuliaflauqito Facility:[facility] Start: 07-09-2022 End: 07-09-2022 Patient encounter procedure Senthil Caldera [facility] Start: 06-06-2022 End: 06-07-2022 ambulatory Senthilleopoldo Hollidayjuliaflaquito Facility:[facility] Start: 06-06-2022 End: 06-06-2022 Patient encounter procedure Senthil Caldera [facility] Start: 03-28-2022 End: 03-28-2022 Patient encounter procedure Senthil Caldera [facility] Start: 03-17-2022 End: 06-17-2022 Recurring Nohemi Felizyuliya [facility] Start: 01-18-2022 End: 01-18-2022 Patient encounter procedure Senthil Caldera [facility] Start: 01-02-2022 End: 09-03-2022 Recurring Senthil Caldera [facility] Start: 12-26-2021 End: 12-26-2021 Patient encounter procedure Senthil Caldera [facility] Start: 12-21-2021 End: 12-21-2021 Patient encounter procedure Nohemi Felizyuliya [facility] Start: 11-30-2021 End: 11-30-2021 Patient encounter procedure Senthil Caldera [facility] Start: 11-27-2021 End: 11-27-2021 Patient encounter procedure Senthil Caldera [facility] Start: 11-25-2021 End: 02-23-2022 Recurring Nohemi Gerard Radha [facility] Start: 11-02-2021 End: 11-02-2021 Patient encounter procedure Nohemi Gerard Radha [facility] Start: 11-01-2021 End: 11-01-2021 Patient encounter procedure Senthil Caldera [facility] Start: 10-05-2021 End: 10-05-2021 Patient encounter procedure Senthil Caldera [facility] Start: 10-02-2021 End: 10-02-2021 Patient encounter procedure Senthil Caldera [facility] Start: 09-07-2021 End: 09-07-2021 Patient encounter procedure Senthil Caldera [facility] Start: 09-03-2021 End: 09-03-2021 Emergency department patient visit Carlos Salazar [facility] Start: 08-21-2021 End: 08-21-2021 Patient encounter procedure Senthil Caldera [facility] Start: 08-21-2021 End: 08-21-2021 Patient encounter procedure Senthil Caldera [facility] Start: 08-10-2021 End: 08-10-2021 Patient encounter procedure Rickey Askew [facility] Start: 08-07-2021 End: 08-07-2021 Patient encounter procedure Senthil Caldera [facility] Start: 07-26-2021 End: 07-26-2021 Patient encounter procedure Senthil Caldera [facility] Start: 07-26-2021 End: 07-26-2021 Patient encounter procedure Senthil Caldera [facility] Start: 07-25-2021 End: 08-18-2021 Pre-admission assessment Gavino TABOR [facility] Start: 07-18-2021 End: 07-18-2021 Patient encounter procedure Senthil Caldera [facility] Start: 07-11-2021 End: 07-11-2021 Patient encounter procedure Gavino TABOR [facility] Procedures Date Procedure Procedure Detail Performing Clinician Start: 05-31-2023 Positron emission tomography with computed tomography MD Mary Rodriguez Work Phone: Start: 05-31-2023 GLUCOSE POCT GLUCOMETERS Senthil Zapata Mgeligio DO Work Phone: Start: 05-24-2023 ALL CBC WITH AUTO DIFF Mary Rodriguez MD Work Phone: Start: 07-04-2021 Core needle biopsy o f breast Gavino TABOR Comment on above: right Start: 04-10-2020 Colonoscopy Mary Rodriguez MD Work Phone: Tonsillectomy and adenoidectomy Gavino TABOR Plan of Treatment Date Care Activity Detail Author Start: 04-10-2030 Screening for malign ant neoplasm of colon [facility] Start: 01-24-2023 Hemoglobin A1c measurement Diabetes: Hemoglobin A1C [facility] Start: 12-21-2022 Influenza vaccination Influenza Vacc ine (#1) [facility] Start: 09-13-2022 Medicare Annual Well ness (AWV) Medicare Annual Wellness (AWV) [facility] Start: 07-09-1959 Glaucoma screening Diabetes: R etinopathy Screening [facility] Start: 1950 Screening for malign ant neoplasm of colon [facility] Immunizations Immunization Date Immunization Notes Care Provider Fa cility 02-13-2021 Influenza, High-dose Seasonal, Quadrivalent, Preservative Free Mary Rodriguez MD Work Phone: [facility] 02-13-2021 influenza virus vaccine, unspecified formulation Mary Rodriguez MD Work Phone: [facility] 01-20-2021 influenza virus vaccine, unspecified formulation Gavino TABOR [facility] 05-22-2019 influenza, high dose seasonal, preservative-free Mary Rodriguez MD Work Phone: [facility] 03-19-2018 influenza, high dose seasonal, preservative-free Mary Rodriguez MD Work Phone: [facility] 04-12-2017 influenza, high dose seasonal, preservative-free Mayr Rodriguez MD Work Phone: [facility] 04-12-2017 pneumococcal conjuga te vaccine, 13 valent Mary Rodriguez MD Work Phone: [facility] Healthcare Payers Date Payer Category Payer Self-pay 2023 Medicaid [id number] 2022 Medicare [id number] 2022 Unknown [id number] [id number] 2022-Present [address] [place] [address] [id number] 2022 Medicare [id number] 2021 Private Health Insurance [id number] 1950 Unknown [id number] 2.16.840.1.998771.3.579.2.7 1949 Unknown [id number] 2.16.840.1.535769.3.579.2.7 1949 Unknown [id number] 2.16.840.1.810181.3.579.2.7 1949 Unknown [id number] 2.16.840.1.914417.3.579.2.7 1949 Unknown [id number] 2.16.840.1.097948.3.579.2.7 1949 Unknown [id number] 2.16.840.1.531375.3.579.2.7 1949 Unknown [id number] 2.16.840.1.805478.3.579.2.7 27 1949 Unknown [id number] 2.16.840.1.268577.3.579.2.7 27 1949 Unknown [id number] 2.16.840.1.725682.3.579.2.7 27 1949 Unknown [id number] 2.16.840.1.241773.3.579.2.7 27 1949 Unknown [id number] 2.16.840.1.581019.3.579.2.7 27 1949 Unknown [id number] 2.16.840.1.625982.3.579.2.7 27 1949 Unknown [id number] 2.16.840.1.169427.3.579.2.7 27 1949 Unknown [id number] 2.16.840.1.736531.3.579.2.7 27 1949 Unknown [id number] 2.16.840.1.950874.3.579.2.7 27 1949 Unknown [id number] 2.16.840.1.107731.3.579.2.7 27 1949 Unknown [id number] 2.16.840.1.288094.3.579.2.7 27 1949 Unknown [id number] 2.16.840.1.618912.3.579.2.7 1949 Unknown [id number] 2.16.840.1.453533.3.579.2.7 27 1949 Unknown [id number] 2.16.840.1.379501.3.579.2.7 27 Medicare Medicare [id number] Unknown [id number] 2.16.840.1.274565.3.579.2.5 31 Social History Date Type Detail Facility Start: 07-04-2021 End: 09-19-2022 Tobacco smoking status Never smoked tobacco (finding) [facility] [place] [facility] Start: 10-24-2022 Sex Assigned At Female [facility] [place] Start: 09-19-2022 Tobacco use and exposure Smokeless tobacco non-user [facility] Start: 10-24-2022 History of Social function [facility] Start: 1950 Sex Assigned At Not on file [facility] Start: 1950 Sex Assigned At Female F [facility] Functional Status Date Assessment Result Facility 12-20-2022 Functional Status No [facility] 12-20-2022 Functional Status [facility] 12-19-2022 Functional Status N/A [facility] 12-17-2022 Functional Status N/A [facility] 11-02-2022 Functional Status N/A [facility] 11-01-2022 Functional Status [facility] Clinical Notes 07-11-2021 to 01-30-2023 Note Date & Type Note Facility 01-30-2023 Hospital Discharg e instructions Follow Up Care 01/30/2023 15:16:04 With:Senthil Caldera Address: [facility] [address] [place] [address]- [phone] Fax Business (1) When: Unknown Comments:f/u in 6 wks. pet/ct in [facility] soon. f/u after. cbc, cmp, iron studies, b12, foalte, epo, [id number] prior to f/u. [facility] 12-23-2022 Evaluation + Plan note Extrac yajaira from: Title:Discharge Note Author:Zaheer Sloan DO Date:12/23/22 Discharge To, Anticipated II - Jail Unit Transported by, Anticipated - Wheelchair van [...] When Contact Information Azar HANKS, Rickey Lynn, [address] [address]- Additional Instructions: Antibiotic Medicine, Adult, Lpco-rw-Rfto Extracted from: Title:APSO Note Author:Zaheer Sloan DO [place] e:12/22/22 1. UTI (urinary tract infect ion) [...] to Resource Center Extracted from: Title:APSO Note Author:Nathalia Zaheer [place] e:12/21/22 1. UTI (urinary tract infect ion) (N39.0: Urinary tract infection, site not specified) Urine culture positive for E. coli, pansensitive We will continue Keflex as patient tolerated in the past We will continue to monitor for signs of improvement Ordered: Initial Hospital Care/Day Moderate 55 Minutes 24631 Sbsq Hospital Care/Day Straight Fwd 25 Minutes 17975 2. 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 Age-related cognitive decline (R41.81: Age-related cognitive [...] Panel 10/25/22 * Comprehensive Metabolic Panel 11/22/22 [facility]09-03-2023 NoteFirelands Regional Medical Center South CampusComment on above:Result Comment: Electronically Signed By: Zaheer Sloan DO\Date and Time Signed: 12/23/22 09:49 [id number] Hospital Discharge instructions Patient Education 12/23/2022 09:48:15 Antibiotic Medicine, Adult, Kldk-db-Trwg Antibiotic Medicine, Adult Antibiotic medicines treat infections [...] medicine. Follow these instructions at home: Take fyqm-klx-gxjkdhg and prescription medicines as told by your [...] provider. Document Revised: 01/26/2020 Document Reviewed: 01/26/2020 Precision [employer] Patient Education 2022 [employer]. Follow Up Care 12/20/2022 15:04:36 With:Azar HANKS, NIKOLE Benedict Address: [address] [place] [phone] When: Unknown [facility]08-31-2023 NoteFishAdventist HealthCare White Oak Medical CenterComment on above:Result Comment: Electronically Signed By: Zaheer Sloan DO\.br\Date and Time Signed: 12/20/22 19:18 [id number] Evaluation + Plan note Extracted from: Title:ED Note Author:David Tong MD Date: 1. Generalized weakness (R53 .1: Weakness) 2. Frequent falls (R29.6: Repeated falls) 3. Anemia (D64.9: Anemia, unspecified) 4. Dehydration (E86.0: Dehydration) 5. Urinary tract infection (N39.0: Urinary tract infection, site not specified) Orders: cephalexin, 500 mg = 1 cap(s), Oral, QID, X 7 day(s), # 28 cap(s), Refills(s) 0, Pharmacy: [facility], 167.6, cm, 12/19/22 20:43:00 EDT, Height/Length [...] Panel 10/25/22 * Comprehensive Metabolic Panel 11/22/22 [facility]08-31-2023 Hospital Discharge instructions Patient Education 12/20/2022 00:37:19 Urinary Tract Infection, Adult, Iqnz-pv-Nzkv Urinary Tract Infection, Adult A urinary tract [...] Follow these instructions at home: Medicines Take uwms-clq-ytczizm and prescription medicines only as told by [...] provider. Document Revised: 11/18/2020 Document Reviewed: 11/18/2020 Precision Biopsy Patient Education 2022 [employer]. 12/20/2022 00:37:19 Anemia Anemia Anemia is a [...] spleen. Follow these instructions at home: Take zpza-fpr-nezliun and prescription medicines only as told by [...] provider. Document Revised: 02/20/2022 Document Reviewed: 03/15/2020 Precision Biopsy Patient Education 2022 [employer]. 12/20/2022 00:37:19 Dehydration, Adult, Wmfr-vn-Pmfa Dehydration, Adult Dehydration is condition in which [...] of fat or sugar. General instructions Take qjpl-yqa-sryyfrl and prescription medicines only as told by [...] start slowly drinking other clear fluids. Take pcft-luh-uglqazs and prescription medicines only as told by your doctor. Get help right away if you have any symptoms of very bad dehydration. This information is not intended to replace advice given to you by your health care provider. Make sure you discuss any questions you have with your health care provider. Document Revised: 11/19/2019 Document Reviewed: 11/19/2019 Elsevier Patient Education 2022 [employer]. Follow Up Care 12/19/2022 20:39:35 With:Rickey Askew Address: [address] [place] [address] [place] [address]- Business (1) When:12/21/2022 [facility]08-28-2023 Hospital Discharge instructions Patient Education 12/17/2022 [...] Follow these instructions at home: Medicines Take lsix-ivg-hahmiud and prescription medicines only as told by [...] as fried or sweet foods. ?Take an javc-wmi-kpcrdgy or prescription medicine for constipation. If you [...] provider. Document Revised: 02/05/2022 Document Reviewed: 02/05/2022 Precision Biopsy Patient Education 2022 [employer]. Follow Up Care 12/17/2022 10:20:15 With:JOSÉ ANTONIO VARGAS Address: [address] [place] [phone] Business (1) When:12/20/2022 12:53:13 With:Gavino Erickson Address: [address] [place] [phone] Business (1) When:12/20/2022 12:52:03 With:Rickey Askew Address: [address] [place] [phone] Business (1) When:12/20/2022 12:51:59 [facility]08-28-2023 Evaluation + Plan noteExtracted from: Title:ED Note Author:Gui Scruggs PA-C te:12/17/22 Fall (W19.XXXA: Unspecified fall, initial encounter) Lumbar compression fracture (S32.000A: Wedge compression fracture of unspecified lumbar vertebra, initial encounter for closed fracture) Ordered: oxycodone, 5 mg = 1 tab(s), Oral, q6hr, X 3 day(s), # 15 tab(s), Refills(s) 0, Pharmacy: [facility], 168, cm, 12/17/22 10:29:00 EDT, Height/Length [...] Panel 10/25/22 * Comprehensive Metabolic Panel 11/22/22 [facility]07-16-2023 NoteFirelands Regional Medical Center South CampusComment on above:Result Comment: Electronically Signed By: Trevor HANKS, Ahmad\.br\Date and Time Signed: 11/04/22 12:37 [id number] Hospital Discharge instructions Patient Education 11/04/2022 12:28:31 [...] Consider working with a physical therapist or system trainer who can develop an exercise plan to help you gain muscle strength. General instructions Take cais-hvo-ixunvxv and prescription medicines only as told by [...] provider. Document Revised: 03/11/2022 Document Reviewed: 03/11/2022 Precision Biopsy Patient Education 2022 [employer]. Follow Up Care 11/01/2022 19:54:24 With:Hollis MERRILL Address: [address] [facility] [address] [place] [address]- Business (1) When: Unknown Comments:Urinary retnetion w/dooley With:Gavino Erickson Address: [address] [place] [address] Business (1) When: Unknown Comments:Call for followup appointment in 4 weeks for repeat pelvis xray With:Rickey Askew Address: [address] [place] [address]- Business (1) When: Unknown [facility]07-16-2023 Evaluation + Plan noteExtracted from: Title:Discharge Note Author:Trevor HANKS, Wyatt Lynn ate:11/04/22 Stable Discharge To, Anticipated II - Jail Unit Discharged to - intermediate unit Discharge Diet(s): Regular (11/02/22 15:25:00) Prescriptions anastrozole 1 mg Tab, 1 mg= 1 tab(s), Oral, Daily, 11 refills Arimidex 1 mg Tab, 1 mg= 1 tab(s), Oral, Daily, 3 refills ergocalciferol 50,000 intl units Cap, 27192 International_Unit= 1 cap(s), Oral, q7day Kisqali (200 [...] bedtime) With When Contact Information Gavino Erickson [address] [place] [phone] [facility] (1) Additional Instructions: Call for followup appointment in 4 weeks for repeat pelvis xray Rickey Askew In [address] [place] [address] [facility] (1) Additional Instructions: Addendum by Trevor HANKS, [facility] ad on November 04, 2022 [...] deep vein thrombosis (DVT) prophylaxis (Z79.899: 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 Pt. with 12/13 on AM-PAC this date. She is very resistant to movement due to pain. She is unable to stand even with attempts of max A. Will benefit from SNF.[facility]07-14-2023 NoteFishAdventist HealthCare White Oak Medical CenterComment on above: Result Comment: Electronically Signed By: Mariia LOPEZ DO.br\Date and Time Signed: 11/02/22 01:35 [id number] Hospital Discharge instructions Follow Up Care 09/27/2022 14:06:46 With:Senthil Caldera Address: [address] [phone] Fax Business (1) When: Unknown Comments:f/u in 3 months. pet/ct prior to f/u. cont arimidex and kisquali. cbc, cmp and [id number] monthly. [facility]02-15-2023 Hospital Discharge instructions Follow Up Care 06/06/2022 13:40:28 With:Senthil Caldera Address: [address] [phone] Fax Business (1) When: Unknown Comments:cbc, cmp, [id number] in 4 weeks and prior to f/u in 8 weeks. 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 iron studies, b12, folate with next labs. [facility]12-07-2022 Hospital Discharge instructions Follow Up Care 03/28/2022 14:49:31 With:Senthil Caldera Address: [address] [phone] Fax Business (1) When: Unknown Comments:f/u in 2 months. pet/ct prior to f/ucbc, cmp, ol0810, every 6 weeks. [facility]09-29-2022 Hospital Discharge instructions Follow Up Care 01/18/2022 14:52:57 With:Senthil Caldera Address: [place] [phone] Fax Business (1) When: Unknown Comments:raise kisquali to 400mg for 3wks on and 1 week off. f/u with me or anthony in 2 months. cbc, cmp, sy0865 prior to f/ucbc, cmp monthly onthis medicaztion cont arimidex. [facility]09-01-2022 Hospital Discharge instructions Follow Up Care 12/21/2021 14:19:38 With:Senthil Caldera Address: [address] [phone] Fax Business (1) When: Unknown Comments:continue Kisqali 200mg 3wks on, 1wk offcbc, cmp in 4wks and 8wksPET scan in Novfollow-up in 8wks with Dr. Hernandez after PET scan [facility]08-11-2022 Hospital Discharge instructions Follow Up Care 11/30/2021 13:55:25 With:Senthil Caldera Address: [address] [phone] Fax [facility] (1) When: Unknown Comments:re-start kisqali at 200mg daily x 3 weeks, then 1 week offcmp weekly x 4wksfollow-up with Dr. Hernandez in 4wkscbc, cmp at follow-up [facility]07-14-2022 Hospital Discharge instructions Follow Up Care 11/02/2021 12:27:30 With:Senthil Caldera Address: [address] [place] [phone] Fax Business (1) When: Unknown Comments:cont arimidex. Hold kisquali for 3 wks, recheck cbc, cmp, prior to f/u. hold lasix. Send this note to Dr. Kofi sumner. [facility]06-16-2022 Hospital Discharge instructions Follow Up Care 10/05/2021 14:21:47 With:Senthil Caldera Address: [facility] [address] [place] [phone] Fax Business (1) When: Unknown Comments:continue kisqalifollow-up in 1mocbc, cmp at follow-up [facility]05-19-2022 Hospital Discharge instructions Follow Up Care 09/07/2021 13:41:37 With:Senthil Caldera Address: [facility] [address] [place] [phone] Fax Business (1) When: Unknown Comments:continue Kisqali follow-up in 1 mocbc, cmp, [id number] at follow-up [facility]05-15-2022 Evaluation + Plan noteExtracted from: Title:ED [...] Location:FT.ONCOLOGY Appointment Type:ONC Office Visit 15 (FT) [facility]05-15-2022 Hospital Discharge instructions Patient Education 09/03/2021 [...] instructions at home: Medicines Take and apply vucg-cdm-yivnpqw and prescription medicines only as told by [...] what causes your hives. Take and apply dggu-csu-winxrfu and prescription medicines only as told by your health care provider. Keep all follow-up visits as told by your health care provider. This is important. This information is not intended to replace advice given to you by your health care provider. Make sure you discuss any questions you have with your health care provider. Document Released: 04/08/2006 Document Revised: 10/22/2018 Document Reviewed: 10/22/2018 Precision [employer] Patient Education [employer]. Follow Up Care 09/03/2021 00:14:38 With:Rickey Askew Address: [address] [place], [place] [phone]- Business (1) When:Within 3 Day(s) [facility]04-21-2022 Hospital Discharge instructions Follow Up Care 08/10/2021 13:38:09 With:Nohemi Garcia Address: [place] [address]- [phone] Business (1) When: Unknown Comments:f/u 1 monthcont ardensrenata.cbc, cmp, [id number] at f/u. With:Senthil Caldera Address: [place] [phone] Fax Business (1) When: Unknown [facility]04-05-2022 Hospital Discharge instructions Follow Up Care 07/25/2021 15:46:11 With:Senthil Caldera Address: [address] [phone] Fax Business (1) When: Unknown Comments:f/u in 2 wks, cbc, cmp, [id number] at f/u. [facility]03-22-2022 Hospital Discharge instructions Follow Up Care 07/11/2021 14:05:16 With:Senthil Caldera Address: [address] [phone] Fax Business (1) When: Unknown Comments:echo and port sooni will call Dr. Tabor. f/u with me in 2 wks plan AC. Cbc, cmp, ceapet/ct prior to f/u. [facility] Future Appointments Appointment Date:07/18/2021 12:00:00 PM Scheduled Provider:Senthil Caldera DO Location:.ONCOLOGY Appointment Type:ONC Office Visit New 45 (FT) [facility] [place] Evaluation + Plan note Future Appointments Appointment Date:08/08/2021 10:00:00 AM Scheduled Provider: [facility] App[facility] Type:US Breast (FT) Appointment Date:08/09/2021 10:30:00 AM Scheduled Provider: Location:[facility] Appointment Type:Surgical PAT FT Appointment Date:08/10/2021 12:30:00 PM Scheduled Provider:Senthil Caldera DO [facility] Type:ONC Office Visit 15 (FT) Appointment Date:08/17/2021 08:00:00 AM Scheduled Provider: Location:[facility] Appointment Type:Surgery FT Appointment Date:08/22/2021 10:20:00 AM Scheduled Provider:Gavino TABOR MD Location:[facility] Appointment Type:GS Post Op 15 Future Scheduled Tests Laboratory* CA 27 29 08/09/21 * CBC w/ Auto Diff 08/09/21 * CBC w/ Auto Diff 07/26/21 * CEA 07/26/21 * Comprehensive Metabolic Panel 08/09/21 * Comprehensive Metabolic Panel 07/26/21 Radiology* US Perc Biopsy Lymph Node 08/08/21 [facility] Future Appointments Appointment Date:08/10/2021 12:30:00 PM Scheduled Provider:Senthil Caldera DO Location:.ONCOLOGY Appointment Type:ONC Office Visit 15 (FT) Diagnostic Tests Pending * CA 27 29 08/07/21 Future Scheduled Tests Laboratory* CBC w/ Auto Diff 07/26/21 * CEA 07/26/21 * [facility] Appointment Date:08/10/2021 12:30:00 PM Scheduled Provider:Senthil Caldera DO Location:.ONCOLOGY Appointment Type:ONC Office Visit 15 (FT) Future Scheduled Tests Laboratory* CBC w/ Auto Diff 07/26/21 * CEA 07/26/21 * [facility]ments Appointment Date:09/07/2021 12:30:00 PM Scheduled Provider:Senthil Caldera DO Location:[facility]ONCOLOG[facility] Appointment Type:ONC Office Visit 15 (FT) Future Scheduled Tests Laboratory* CBC w/ Auto Diff 08/24/21 * CEA 08/24/21 * [facility] Appointment Date:08/21/2021 02:00:00 PM Scheduled Provider: Location:[facility]ONCOLOGY Appointment Type:ONC Patient Education - 1hr (FT) Appointment Date:09/07/2021 12:30:00 PM Scheduled Provider:Senthil Caldera DO Location:[facility]ONCOLOG[facility] Appointment Type:ONC Office Visit 15 (FT) Future Scheduled Tests Laboratory* CBC w/ Auto Diff 09/07/21 * CEA 09/07/21 * [facility]07[facility] Appointment Date:09/07/2021 12:30:00 PM Scheduled Provider:Senthil Caldera DO Location:[facility]ONCOLOG[facility] Appointment Type:ONC Office Visit 15 (FT) [facility]ments Appointment Date:10/05/2021 01:30:00 PM Scheduled Provider:Senthil Caldera DO Location:[facility]ONCOL[facility] Appointment Type:ONC Office Visit 15 (FT) Future Scheduled Tests Laboratory* CA 27 29 10/08/21 * CBC w/ Auto Diff 10/08/21 * Comprehensive Metabolic [facility]08/[facility] Appointment Date:10/05/2021 01:30:00 PM Scheduled Provider:Senthil Caldera DO Location:[facility]ONCOLOGY Appointment Type:ONC Office Visit 15 (FT) Diagnostic Tests Pending * CA 27 29 [facility]02/21 [facility] App[facility]ments Appointment Date:11/02/2021 01:45:00 PM Scheduled Provider:Senthil Caldera DO Location:[facility]ONCOLOGY Appointment Type:ONC Office Visit 15 (FT) Future Scheduled Tests Laboratory* CA 27 29 11/02/21 * CBC w/ Auto Diff 11/02/21 * Comprehensive Metabolic [facility]02/[facility]ments Appointment Date:11/02/2021 11:15:00 AM Scheduled Provider:Nohemi Garland Location:[facility]ONCOLOGY Appointment Type:ONC Office Visit 15 (FT) Diagnostic Tests Pending * CA 27 29 [facility]01/21 [facility]ments Appointment Date:11/30/2021 01:15:00 PM Scheduled Provider:Senthil Caldera DO Location:[facility]ONCOLOG[facility] Appointment Type:ONC Office Visit 15 (FT) Future Scheduled Tests Laboratory* CBC w/ Auto Diff 12/03/21 * Comprehensive Metabolic Panel 12/03/[facility] App[facility]ments Appointment Date:11/30/2021 01:15:00 PM Scheduled Provider:Senthil Caldera DO Location:[facility] Appointment Type:ONC Office Visit 15 (FT) [facility] App[facility]ments Appointment Date:12/21/2021 01:15:00 PM Scheduled Provider:Senthil Caldera DO Location:[facility]ONCOLOGY Appointment Type:ONC Office Visit 15 (FT) Future Scheduled Tests Laboratory* CBC w/ Auto Diff 12/21/21 * Comprehensive Metabolic Panel 12/21/[facility] Appointment [...] Panel 01/18/22 * Comprehensive Metabolic [facility]25/[facility] Appointment [...] Panel 01/18/22 * Comprehensive Metabolic [facility]/25/[facility] Appointment [...] Panel 02/06/22 * Comprehensive Metabolic [facility] 02/13/[facility] App[facility]ments Appointment Date:03/28/2022 02:15:00 PM Scheduled Provider:Senthil Caldera DO Location:[facility]COL[facility] Appointment Type:ONC Office Visit 15 (FT) Future Scheduled Tests Laboratory* CBC w/ Auto Diff 03/08/22 * CBC w/ Auto Diff 04/05/22 * Comprehensive Metabolic Panel 03/08/22 * Comprehensive Metabolic [facility]05/[facility] Appointment Date:06/06/2022 01:15:00 PM Scheduled Provider:Senthil Caldera DO Location:[facility] Appointment Type:ONC Office Visit 15 (FT) [facility] Future App[facility]ments Appointment Date:08/01/2022 02:00:00 PM Scheduled Provider:Senthil Caldera DO Location:[facility]ONCOLOGY Appointment Type:ONC Office Visit 15 (FT) Future Scheduled Tests Laboratory* CBC w/ Auto Diff 06/06/22 * Comprehensive Metabolic Panel 06/06/22 [facility] App[facility]ments Appointment Date:08/01/2022 02:00:00 PM Scheduled Provider:Senthil Caldera DO Location:[facility]ONCOLOGY Appointment Type:ONC Office Visit 15 (FT) Diagnostic Tests Pending * CA 27 29 07/09/22 Future Scheduled Tests Laboratory* CA 27 29 07/31/22 * CBC w/ Auto Diff 07/31/22 * Comprehensive Metabolic Panel 07/31/22 [facility] App[facility]ments Appointment Date:08/01/2022 02:00:00 PM Scheduled Provider:Senthil Caldera DO Location:[facility]ONCOLOGY Appointment Type:ONC Office Visit 15 (FT) Diagnostic Tests Pending * CA 27 29 07/30/22 [facility] Appointment [...] Transferrin 08/29/22 * Vitamin B12 Level 08/29/22 [facility] App[facility]ments Appointment Date:09/27/2022 01:45:00 PM Scheduled Provider:Nohemi Garland Location:[facility]ONCOLOG[facility] Appointment Type:ONC Office Visit 30 (FT) Diagnostic Tests Pending * CA 27 29 09/25/22 [facility] Future Appointments Appointment Date:11/22/2022 02:15:00 PM Scheduled Provider:Senthil Caldera DO Location:[facility]ONCOLOGY Appointment Type:ONC Office Visit 15 (FT) Future Scheduled Tests Laboratory* CA 27 29 10/25/22 * CA 27 29 11/22/22 * CBC w/ Auto Diff 10/25/22 * CBC w/ Auto Diff 11/22/22 * Comprehensive Metabolic Panel 10/25/22 * Comprehensive Metabolic Panel 11/22/22 [facility] App[facility]ments Appointment Date:12/26/2022 02:45:00 PM Scheduled Provider:Senthil Caldera DO Location:[facility]ONCOLOGY Appointment Type:ONC Office Visit 15 (FT) Future Scheduled Tests Laboratory* CA 27 29 10/25/22 * CA 27 29 11/22/22 * CBC w/ Auto Diff 10/25/22 * CBC w/ Auto Diff 11/22/22 * Comprehensive Metabolic Panel 10/25/22 * Comprehensive Metabolic Panel 11/22/22 [facility] Evaluation + Plan note Future Appointments [...] Panel 04/01/23 * [facility] Metabolic [facility]02[facility] Appointment [...] Panel 04/01/23 * Comprehensive Metabolic Panel [facility]02/23 [facility] note[facility] assessment information available [facility] Work Phone: Hospital course Narrative No data available for this section [facility] Discharge instructions No data available for this section [facility] General [facility] [place] note No data available for this section [facility] Summary Purpose Family History No Family History Records Found No data available for this section No data available for this section No Family History Records FoundNo Family History Records Found Advance Directives No Advanced Directives Records Found Advance Directive Response Recorded Date/ Time Advance Directives No May 27, 2023 8:14am Chief Complaint and Reason for Visit Chief Complaint C50.41 C79.51 Additional Source Comments INFORMATION SOURCE (unrecogn ized section and content) DATE CREATED AUTHOR 09/08/2021 [facility] DATE CREATED AUTHOR AUTHOR'S ORGANIZ ATION 05/24/2023 [facility] DATE CREATED AUTHOR AUTHOR'S ORGANIZ ATION 06/03/2023 [facility] Care Team (unrecognized sect ion and content) Rn Acls Relationship Specialty Start Date End Date Rickey Askew MD [address] [place] [address] PCP - Devoted 06/20/22 Rickey Askew MD [address] [place] [address] PCP - General Family Medicine 09/19/22 Team Status: Active Member Role Status Dates Mary Rodriguez MD Primary Care Provider Active Team Status: Inactive Member Role Status Dates Senthil Caldera II DO Attending Provider Active Start: May 31, 2023 End: May 31, 2023 Mary Rodriguez MD Primary Care Provider Active S tart: May 31, 2023 End: May 31, 2023 Goals (unrecognized section and content) Goals may be documented in a n alternate section FOR RECORDS PERTAINING TO PATIENTS WHO ARE [...] BE BASED ON THE PRIMARY CLINICAL RECORDS. [facility]. provides no warranty or guarantee of the accuracy or completeness of information in this document.
[2023-06-05 07:57] LABS: Basophils Absolute Auto 0.1 10^3/uL (0.0-0.1); Basophils Percent Auto 1.2 % (0.2-2.0); Eosinophils Absolute Auto 0.2 10^3/uL (0.0-0.7); Eosinophils Percent Auto 3.8 % (0.9-7.0); Hematocrit 29.4 % (36.0-48.0); Hemoglobin 9.4 g/dL (12.0-16.0); Immature Granulocytes Abs Auto 0.02 10^3/uL (0.00-0.03); Immature Granulocytes Pct Auto 0.4 % (0.0-0.5); Lymphocytes Absolute Auto 1.8 10^3/uL (1.2-3.8); Lymphocytes Percent Auto 35.5 % (20.5-60.0); Mean Corpuscular Hemoglobin 33.5 pg (26.7-34.0); Mean Corpuscular Volume 104.6 fL (81.0-99.0); Mean Platelet Volume 9.2 fL (9.5-13.5); Monocytes Absolute Auto 0.4 10^3/uL (0.3-0.8); Monocytes Percent Auto 8.2 % (1.7-12.0); Neutrophils Absolute Auto 2.5 10^3/uL (1.4-6.5); Neutrophils Percent Auto 50.9 % (43.0-75.0); Platelet Count 182 10^3/uL (150-450); Red Blood Count 2.81 10^6/uL (4.20-5.40); Red Cell Distribution Width 13.4 % (11.0-15.0)
[2023-06-05 08:09] LABS: Alanine Aminotransferase 47 U/L (14-59); Albumin Globulin Ratio 0.7; Albumin Level 2.4 g/dL (3.4-5.0); Alkaline Phosphatase 136 U/L (46-116); Anion Gap 12.2; Aspartate Amino Transferase 29 U/L (15-37); BUN Creatinine Ratio 30.8; Bilirubin Total 0.2 mg/dL (0.2-1.0); Calcium 8.8 mg/dL (8.5-10.1); Carbon Dioxide 27.2 mmol/L (21.0-32.0); Chloride 107 mmol/L (98-107); Estimated GFR (African America >60 (>=60); Estimated GFR (Non-African Ame 50 (>=60); Globulin 3.5 g/dL; Glucose 106 mg/dL (74-106); Potassium 4.4 mmol/L (3.5-5.1); Sodium 142 mmol/L (136-145); Total Protein 5.9 g/dL (6.4-8.2)
[2023-06-06 11:19] LABS: Transferrin 166 mg/dL (192-364)
[2023-06-06 16:09] LABS: Erythropoietin (EPO), Serum 33.3 mIU/mL (2.6-18.5)
== END 2023-06-05 01:53 | disposition home or self-care (01) ==
LOC: LAB 01:52
PROVIDERS: PCP Family Medicine; Visit Provider Family Medicine
DX: C50.919 Malignant neoplasm of unspecified site of unspecified female breast (principal)
CPT/HCPCS: 36415; 80053; 82607; 82668; 82728; 82746; 83540; 83550; 84466; 85025; 86300

== ENCOUNTER 2023-06-19 06:31 | Outpatient (REF) | payer OTHER, SELFPAY ==
--- OUTSIDE RECORDS SUMMARY | 2023-06-19 06:35 | XMS_ITS | CCD ---
Author Name Unknown Address [address] [facility] [address] [place] [id number] Organization [facility] Care Team Providers Care Interventional Physician Name Role Phone Rickey Askew Primary Care Physician Eva Beard Unavailable Unavailable Rickey Askew MD Unavailable [phone] Rickey Askew MD Primary Care Provider DO Senthil Caldera II Attending Provider MD Mary Rodriguez Primary Care Provider [phone] Mary Rodriguez Primary Care Unavailable Verenice IISenthil Attending Unavaila ble Verenice MAZA, Senthil J Admitting Unavaila Sammy Azul Attending Unavailable DO Senthil Caldera Admitting Unavailabl e Adamowicz, Senthil Referring Unavailable Adamowicz, Senthil Attending Unavailable Mgowicz, Senthil Admitting Unavailable Adamowicz, Senthil Attending Unavailable Nohemi Garcia Attending Unavailable Adamowicz, Senthil Attending Unavailable Adamowicz, Senthil Admitting Unavailable Adamowicz, Senthil Admitting Unavailable Adamowicz, Senthil Attending Unavailable Adamowicz, Senthil Admitting Unavailable Adamowicz, Senthil Attending Unavailable Adamowicz, Senthil Admitting Unavailable Mgowicz, Senthil Attending Unavailable Zaheer Sloan Attending Unavailable Zaheer Sloan Admitting Unavailable Lorie Slater Attending Unavailable Sammy QUEZADA Attending Unavailable Sammy QUEZADA Attending Unavailable Gavino Erickson Consulting Unavailable Mariia LOPEZ Admitting Unavailable Wyatt Murray Attending Unavailable DO Gavino Erickson Consulting Unavailable MARCEL ALVAREZ Consulting Unavailable Erickson, Gavino T Consulting Unavailable Erickson, Gavino T Consulting Unavailable Erickson, Gavino T Consulting Unavailable Erickson, Gavino T Consulting Unavailable Erickson, Gavino T Consulting Unavailable Erickson, Gavino T Consulting Unavailable Erickson, Gavino T Consulting Unavailable Erickson, Gavino T Consulting Unavailable Erickson, Gavino T Consulting Unavailable Jeffery Murphy Attending Unavailable Elijah, Pedro Mcneill Attending Unavailable Ran, David Attending Unavailable Verenice, Senthil Attending Unavailable Verenice, Senthil Attending Unavailable Allergies Allergy Classification Reported Allergen(s) Allergy Type Date of Onset Reaction(s) Facility (20 sources) Bee/Wasp/Ant venom; Translations: [Bee Stings] Drug allergy Dyspnea (finding) [facility] (20 sources) Penicillins; Translations: [penicillins] Drug allergy 2 Dyspnea (finding), Shortness of breath, Unknown [facility] (20 sources) Sulfonamides (Antibiotic); Translations: [sulfa drugs] Drug allergy Dyspnea (finding) [facility] (3 sources) Penicillin G Drug Allergy 2 [facility] (3 sources) Sulfonamides (Antibiotic) Drug Allergy 3 Shortness [...] day(s), # 28 cap(s), Refills(s) 0, Pharmacy: [facility] #37, 167.6, cm, 12/19/22 20:43:00 EDT, Height/Length Dosing, 87.1, kg, 12/19/22 20:43:00 EDT, Weight Dosing Start Date: 12/19/22 Stop Date: 12/26/22 Status: Ordered cholecalciferol 0.05 mg oral tablet (3 sources) Vitamin D Start: 12-14-2022 take 1 [...] Nausea, # 30 tab(s), Refills(s) 3, Pharmacy: [facility] #37, 162.5, cm, 08/10/21 12:38:00 EDT, Height/Length Dosing, 96.5, kg, 08/10/21 12:38:00 EDT, Weight Dosing Start Date: 08/24/21 Status: Ordered oxyCODONE hydrochloride 5 mg oral tablet (4 sources) Opioid Agonist Start: 12-17-2022 End: 12-20-2022 [...] Ordered vitamin b12 1 mg oral tablet (3 sources) Vitamin B12 Start: 09-27-2022 take 1 [...] Daily, # 30 tab(s), Refills(s) 11, Pharmacy: [facility] #37, 162, cm, 09/08/22 15:14:00 EDT, Height/Length Dosing, 96.4, kg, 09/27/22 13:43:00 EDT, Weight Dosing Start Date: 09/27/22 Status: Ordered Vitamin D3 2000 intl units oral tablet (7 sources) Start: 12-14-2022 take 1 tablet by mouth once daily Vitamin D3 2000 intl units oral tablet 50 mcg = 1 tab(s), Oral, Daily, # 90 tab(s), Refills(s) 4, Pharmacy: [facility] #37, 167, cm, 11/01/22 20:02:00 EDT, Height/Length [...] daily, # 7 cap(s), Refills(s) 0, Pharmacy: [facility] #37, 167, cm, 11/01/22 20:02:00 EDT, Height/Length Dosing, 90.3, kg, 11/01/22 20:02:00 EDT, Weight Dosing Start Date: 11/04/22 Status: Ordered Start: 11-04-2022 ergocalciferol 50,000 intl units Cap 50,000 International_Unit = 1 cap(s), Oral, q7day, # 7 cap(s), Refills(s) 0, Pharmacy: [facility] #37, 167, cm, 11/01/22 20:02:00 EDT, Height/Length [...] breast] Onset: 11-02-2022 Episodic Cancer of colon (4 sources) Malignant tumor of colon; Translations: [Malignant [...] current use of drug therapy; Translations: [Other manager intermediate (current) drug therapy] Onset: 11-02-2022 Episodic Other [...] Chronic Other nutritional; endocrine; and metabolic disorders (3 sources) Obese class I; Translations: [Obesity, unspecified] Onset: 09-13-2021 10-24-2022 Chronic Other nutritional; endocrine; and metabolic disorders (3 sources) Obesity; Translations: [Obesity, unspecified] Onset: 10-24-2022 10-24-2022 Chronic Pathological fracture (10 sources) H/O: fragility fracture; Translations: [Personal history of (healed) osteoporosis fracture] Onset: 11-06-2022 Episodic Secondary malignancies (1 source) Secondary malignant neoplasm of bone; Translations: [Secondary malignant neoplasm of bone] Onset: 01-30-2023 Chronic Unclassified (1 source) Malignant neoplasm of upper-outer quadrant of right female breast; Translations: [Malignant neoplasm of upper-outer quadrant of right female breast] Onset: 05-31-2023 Past or Other Problems Problem Classification Problem Date Documented Da te Episodic/Chronic Lymphadenitis (20 sources) Axillary lymphadenopathy; Translations: [Localized enlarged lymph nodes] Onset: 10-24-2022 07-25-2021 Episodic Mood disorders (3 sources) Mood disorders Onset: 10-24-2022 10-24-2022 Mycoses (3 sources) Onychomycosis; Translations: [Tinea unguium] Onset: 09-19-2022 09-19-2022 Episodic Nonmalignant breast conditions (20 sources) Lump of upper outer quadrant of breast; Translations: [Lump in upper outer quadrant of right breast] Onset: 10-24-2022 07-04-2021 Episodic Other connective tissue disease (3 sources) Pain of toe of left foot; Translations: [Pain in left toe(s)] Onset: 09-19-2022 09-19-2022 Episodic Other connective tissue disease (3 sources) Pain of toe of right foot; Translations: [Pain in right toe(s)] Onset: 09-19-2022 09-19-2022 Episodic Residual codes; unclassified (20 sources) Edema; Translations: [Edema, unspecified] Onset: 03-19-2015 07-03-2021 Episodic Residual codes; unclassified (3 sources) H/O: high risk medication; Translations: [Personal history of other drug therapy] Onset: 03-19-2015 10-24-2022 Episodic Urinary tract infections (3 sources) Urinary tract infectious disease; Translations: [Urinary tract infection, site not specified] Onset: 12-19-2022 Episodic Results Test Name Value Interpretation Reference Range Facility [facility] 06-06-2023 Outside Labs [id number]#1.00TIFF Normal [facility] Outside Radiologyon 06-06-19 Outside Radiology [id number]#1.00TIFF [facility] ALL CBC WITH AUTO DIFFon BASOPHILS ABSOLUTE AUTO 0.1 N [facility] Basophils/100 WBC (Bld) 1.2 % 0.2 - 2.0 % [facility] Eosinophils/100 WBC (Bld) 3.8 % 0.9 - 7.0 % [facility] Erythrocyte distribution width (RBC) [Ratio] 13.4 % 11.0 - 15.0 % [facility] Hematocrit (Bld) [Volume fraction] 29.4 % Low 36.0 - 48.0 % [facility] Hemoglobin (Bld) [Mass/Vol] 9.4 g/dL Low 12.0 - 16.0 g/dL [facility] IMMATURE GRANULOCYTES ABS AUTO 0.02 [facility] Immature granulocytes/100 WBC (Bld) 0.4 % 0.0 - 0.5 % [facility] Interpretation and review of laboratory results Abnormal [facility] LYMPHOCYTES ABSOLUTE AUTO 1.8 [facility] Lymphocytes/100 WBC (Bld) 35.5 % 20.5 - 60.0 % [facility] MCH (RBC) [Entitic mass] 33.5 pg 26.7 - 34.0 pg [facility] MCHC (RBC) [Mass/Vol] 32.0 g/dL 29.9 - 35.2 g/dL [facility] MCV (RBC) [Entitic vol] 104.6 fL High 81.0 - 99.0 fL [facility] MONOCYTES ABSOLUTE AUTO 0.4 N [facility] Monocytes/100 WBC (Bld) 8.2 % 1.7 - 12.0 % [facility] NEUTROPHILS ABSOLUTE AUTO 2.5 [facility] Neutrophils/100 WBC (Bld) 50.9 % 43.0 - 75.0 % [facility] Platelet mean volume (Bld) [Entitic vol] 9.2 fL Low 9.5 - 13.5 fL [facility] TB EO # 0.2 [facility] TB PLT 182 [facility] RBC 2.[address] [facility] WBC 5.0 [facility] GLUCOSE POCT GLUCOMETERSon 0 05-31-2023 Glucose [Mass/Vol] 110 mg/dL [facility] Comment on above: Random Glucose Refer ence Range is dependent on time and content of last meal. Glucose of more than 200 mg/dL in a nonstressed, ambulatory subject supports the diagnosis of Diabetes Mellitus. [facility] Glucose Glucometer (BldC) [M ass/Vol]Ordered By: Senthil Caldera on 05-31-2023 Glucose [Mass/Vol] 110 mg/dL [facility] Comment on above: Random Glucose Refer ence Range is dependent on time and content of last meal. Glucose of more than 200 mg/dL in a nonstressed, ambulatory subject supports the diagnosis of Diabetes Mellitus. Glucose Poct Glucometerson 0 05-31-2023 Glucose [Mass/Vol] 110 mg/dL Normal [facility] Comment on above: Result Comment: [facility] Glucose Reference Range is dependent on time and content of last meal. Glucose of more than 200 mg/dL in a nonstressed, ambulatory subject supports the diagnosis of Diabetes Mellitus. PERFORMED BY: [place] [address] PATHOLOGIST TIMBER INSPECTOR JERICA JO M.D. Performed By: #### G LULS #### Point of Care testing , PET tumor subq tx strat sb-m ton 05-31-2023 PET tumor subq tx strat sb-mt [facility] [place] [address] Nuclear Medicine Report Signed Patient: Malren Staley MR#: [id number] 65 : 1950 Acct:[id number] Age/Sex: 72 / F ADM Date: 05/31/23 Loc: Room: Type: [facility] Attending Dr: Senthil Caldera II, DO Copies to: Senthil Caldera II, Sammy Vazquez DO Ordering Provider: Senthil Caldera II, DO [...] cavity is present. Although distribution may be denial management representative of asymmetric physiologic uptake, if there [...] Unremarkable ADRE (more content not included)... Normal ALL CBC WITH AUTO DIFFon BASOPHILS ABSOLUTE AUTO 0.1 N [facility] [employer] Basophils/100 WBC (Bld) 2.0 % 0.2 - 2.0 % [facility] Eosinophils/100 WBC (Bld) 3.3 % 0.9 - 7.0 % [facility] Erythrocyte distribution width (RBC) [Ratio] 13.2 % 11.0 - 15.0 % [facility] Hematocrit (Bld) [Volume fraction] 28.4 % Low 36.0 - 48.0 % [facility] Hemoglobin (Bld) [Mass/Vol] 9.2 g/dL Low 12.0 - 16.0 g/dL [facility] IMMATURE GRANULOCYTES ABS AUTO 0.02 [facility] Immature granulocytes/100 WBC (Bld) 0.4 % 0.0 - 0.5 % [facility] Interpretation and review of laboratory results Abnormal [facility] LYMPHOCYTES ABSOLUTE AUTO 2.0 [facility] Lymphocytes/100 WBC (Bld) 43.8 % 20.5 - 60.0 % [facility] MCH (RBC) [Entitic mass] 33.5 pg 26.7 - 34.0 pg [facility] MCHC (RBC) [Mass/Vol] 32.4 g/dL 29.9 - 35.2 g/dL [facility] MCV (RBC) [Entitic vol] 103.3 fL High 81.0 - 99.0 fL [facility] MONOCYTES ABSOLUTE AUTO 0.3 N [facility] Monocytes/100 WBC (Bld) 6.9 % 1.7 - 12.0 % [facility] NEUTROPHILS ABSOLUTE AUTO 2.0 [facility] Neutrophils/100 WBC (Bld) 43.6 % 43.0 - 75.0 % [facility] Platelet mean volume (Bld) [Entitic vol] 9.0 fL Low 9.5 - 13.5 fL [facility] TBH EO # 0.2 [facility] TBH PLT 226 [facility] TB RBC 2.75 Low [facility] TB WBC 4.5 [facility] Insurance Correspondenceon 0 05-23-2023 Insurance Correspondence [id number]#1.00TIFF Normal [facility] Oncology Noteon 05-20-2023 Oncology Note Normal [facility] Comment on above: Result Comment: Elec tronically Signed By: Jane FARMER, Yolande Grande.br\Date and Time Signed: 05/20/23 14:48 EST Physician Orderon 05-15-2023 Physician Order [id number]#1.00TIFF Normal [facility] Comment on above: Other Comment: wrong patient Physician Orderon 05-14-2023 Physician Order [id number]#1.00TIFF Normal [facility] 05-02-2023 Outside Labs [id number]#1.00TIFF Normal [facility] Outside Labs [id number]#1.00TIFF [facility] Physician Orderon 05-02-2023 Physician Order [id number]#1.00TIFF [facility] Physician Order [id number]#1.00TIFF Normal [facility] Consent for Treatmenton 04-22 Consent for Treatment [id number]#1.00TIFF [facility] Oncology Noteon 05-01-2023 Oncology Note Normal [facility] Comment on above: Result Comment: Elec tronically Signed By: Magda FARMER, Annia\.br\Date and Time Signed: 05/01/23 15:05 EST Oncology Progress Noteon Oncology Progress Note Normal [facility] 05-01-2023 Outside Labs [id number]#1.00TIFF [facility] ONC - Otheron 02-07-2023 ONC - Other [id number]#1.00TIFF [facility] Physician Orderon 02-05-2023 Physician Order [id number]#1.00TIFF [facility] Consent for Treatmenton 01-20 Consent for Treatment [id number]#1.00TIFF [facility] Oncology Noteon 01-30-2023 Oncology Note [facility] Comment on above: Result Comment: Elec tronically Signed By: Jane FARMER, Yolande Houston\.br\Date and Time Signed: 01/30/23 17:07 EDT Oncology Progress Noteon Oncology Progress Note Normal [facility] 01-29-2023 Outside Labs [id number]#1.00TIF F [facility] Outside Labs [id number]#1.00TIF F [facility] 01-28-2023 Outside Labs [id number]#1.00TIFF [facility] Coding Queryon 01-16-2023 Coding Query [facility] ONC - Otheron 01-16-2023 ONC - Other [id number]#1.00CD:1 27 [facility] ONC - Otheron 01-09-2023 ONC - Other [id number]#1.00CD:1 [facility] Discharge Instructionson Discharge Instructions [id number]#1.00CD:1 [facility] Transfer Documentson 023 Transfer Documents [id number]#1.00CD:1 [facility] CHEMISTRYOrdered By: Elma BRYANT User on 12-23-2022 Glucose [Mass/Vol] 111 mg/dL High 55 - 99 mg/dL [facility] POC Subsection Comment on above: Result Comment: Navin uriostegui RN/ POC Device SN [id number] Invalid Interpretation Code FT POC Subsection POC User ID [id number] Invalid Interpretation Code FT POC Subsection POC Username JUAN HENNESSY Invalid Interpretation Code FT POC Subsection Capillary Glucose POCon Glucose [Mass/Vol] 111 mg/dL High 55-99 [facility] Comment on above: Result Comment: Navin BOSE Performed By: #### 2 [id number] ####[facility] [address] [place] [address] Discharge Note-Nursingon Discharge Note-Nursing Normal [facility] C Urineon 12-22-2022 Bacteria identified Cx Nom (U) Normal [facility] Comment on above: Performed By: #### 1 [id number], [id number] ####[facility] [address] [place] [address] CHEMISTRYOrdered By: Lab ROP User on 12-22-2022 Glucose [Mass/Vol] 155 mg/dL High 55 - 99 mg/dL [facility] POC Subsection Comment on above: Result Comment: Navin BOSE POC Device SN [id number] Invalid Interpretation Code FT POC Subsection POC User ID [id number] Invalid Interpretation Code FT POC Subsection POC Username DARRYN SANTOS Invalid Interpretation Code FT POC Subsection Glucose [Mass/Vol] 129 mg/dL High 55 - 99 mg/dL [facility] POC Subsection Comment on above: Result Comment: Christine donna Meter POC Device SN [id number] Invalid Interpretation Code FT POC Subsection POC User ID [id number] Invalid Interpretation Code FT POC Subsection POC Username ROOPA LIM Invalid Interpretation Code [facility] POC Subsection Capillary Glucose POCon Glucose [Mass/Vol] 155 mg/dL High 55-99 [facility] Comment on above: Result Comment: Navin BOSE Performed By: #### 2 [id number] ####[facility] [address] [place] [address] Glucose [Mass/Vol] 129 mg/dL High 55-99 [facility] Comment on above: Result Comment: Christine donna Meter Performed By: #### 2 [id number] ####[facility] [address] [place] [address] Glucose [Mass/Vol] 158 mg/dL High 55-99 [facility] Comment on above: Result Comment: Christine thompson Meter Performed By: #### 2 [id number] ####[facility] [address] [place] [address] Glucose [Mass/Vol] 144 mg/dL High 55-99 [facility] Comment on above: Result Comment: Navin uriostegui RN/ Performed By: #### 2 [id number] ####[facility] [address] [place] [address] 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 Note - Attila e Manageron 12-22-2022 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 Note - Guest History Clerk Normal [facility] Comment on above: Result Comment: Elec tronically Signed By: Jolanta Stubbs RN\.br\Date and Time Signed: 12/22/22 16:25 EDT Progress Note-Physicianon Progress Note-Physician Normal [facility] Comment on above: Result Comment: Elec tronically Signed By: Zaheer Sloan DO.br\Date and Time Signed: 12/22/22 09:47 EDT Auto Diffon 12-21-2022 Basophils/100 WBC (Bld) 2.6 % High 0.0-2.0 [facility] Comment on above: Order Comment: Order Added by Discern Expert. Performed By: #### 2 [id number], [id number], [id number], [id number], [id number] ####[facility] [address] [place] [address] Basophils/Leukocytes Auto (Bld) [Pure # fraction] 0.1 E9/L Normal 0.0-0.2 [facility] Comment on above: Order Comment: Order Added by Discern Expert. Performed By: #### 2 584923, [id number], [id number], 6306267, [id number] ####[facility] [address] [place] [address] Eosinophils/100 WBC (Bld) 2.5 % Normal 0.0-8.0 [facility] Comment on above: Order Comment: Order Added by Faviola Expert. Performed By: #### 2 323855, [id number], 77083277, 7947054, [id number] ####[facility] [address] [place] [address] Eosinophils/Leukocytes Auto (Bld) [Pure # fraction] 0.1 E9/L Normal 0.0-0.5 [facility] Comment on above: Order Comment: Order Added by Discern Expert. Performed By: #### 2 960121, [id number], [id number], 3803230, [id number] ####[address] [place] [address] Lymphocytes/100 WBC (Bld) 42.1 % Normal 14.0-50.0 [facility] Comment on above: Order Comment: Order Added by Faviola Expert. Performed By: #### 2 286964, [id number], [id number], 0358472, 5999354 ####[address] [address] Lymphocytes/Leukocytes Auto (Bld) [Pure # fraction] 1.4 E9/L Normal 1.0-4.0 [facility] Comment on above: Order Comment: Order Added by Faviola Expert. Performed By: #### 2 907957, [id number], [id number], 6576990, 5867143 ####[address] [place] [address] Monocytes/100 WBC (Bld) 13.6 % Normal 4.0-14.0 [facility] Comment on above: Order Comment: Order Added by Faviola Expert. Performed By: #### 2 665269, [id number], 41969014, 5226647, 9478955 ####[address] [address] Monocytes/Leukocytes Auto (Bld) [Pure # fraction] 0.4 E9/L Normal 0.2-1.0 [facility] Comment on above: Order Comment: Order Added by Faviola Expert. Performed By: #### 2 444121, [id number], [id number], 4331539, [id number] ####[facility] [address] [place] [address] Neutrophils/100 WBC (Bld) 39.2 % Normal 36.0-75.0 [facility] Comment on above: Order Comment: Order Added by Discern Expert. Performed By: #### 2 191825, [id number], [id number], 1533778, 1925477 ####[facility] [address] [place] [address] Neutrophils/Leukocytes Auto (Bld) [Pure # fraction] 1.3 E9/L Low 2.0-7.5 [facility] Comment on above: Order Comment: Order Added by Discern Expert. Performed By: #### 2 516065, [id number], 74901454, 7369450, [id number] ####[facility] [address] [place] [address] BMPon 12-21-2022 Anion gap [Moles/Vol] 11 mmol/L Normal 6-16 [facility] Comment on above: Performed By: #### 2 402958, [id number], 79346940, 4679111, 2181276 ####[facility] [address] [place] [address] Calcium [Mass/Vol] 8.9 mg/dL Normal 8.9-11.1 [facility] Comment on above: Performed By: #### 2 218858, [id number], 60329900, 0096568, 6305706 ####[facility] [address] [place] [address] Chloride [Moles/Vol] 112 mmol/L High 101-111 [facility] Comment on above: Performed By: #### 2 296831, [id number], 57699191, 3858525, 9552761 ####[facility] [address] [place] [address] CO2 [Moles/Vol] 22 mmol/L Normal 21-31 [facility] Comment on above: Performed By: #### 2 522925, [id number], 47539489, 8965012, 0858985 ####[facility] [address] [place] [address] Creatinine [Mass/Vol] 1.4 mg/dL High 0.5-1.3 [facility] Comment on above: Performed By: #### 2 415875, [id number], 12266740, 1601299, 1609615 ####[facility] [address] [place] [address] Glucose [Mass/Vol] 102 mg/dL Normal 55-199 [facility] Comment on above: Result Comment: If t his glucose result represents a fasting glucose, interpretation should refer to the following reference range: 55-99 mg/dL Performed By: #### 2 646334, [id number], 48692910, 2041942, 9223070 ####[facility] [address] [place] [address] Potassium [Moles/Vol] 4.0 mmol/L Normal 3.5-5.3 [facility] Comment on above: Performed By: #### 2 372889, 164557744, 53200044, 5505131, 3084051 ####[facility] [address] [place] [address] Sodium [Moles/Vol] 141 mmol/L Normal 135-145 [facility] Comment on above: Performed By: #### 2 936964, 498139173, 25738833, 5852591, 0011737 ####[facility] [address] [place] [address] Urea nitrogen [Mass/Vol] 36 mg/dL High 5-21 [facility] Comment on above: Performed By: #### 2 613147, 334312422, 43698177, 8875808, 5684833 ####[facility] [address] [place] [address] Urea nitrogen/Creatinine [Mass ratio] 26 No Units High 10-20 [facility] Comment on above: Performed By: #### 2 732741, 928955875, 02043016, 1115504, 8576667 ####[facility] [address] [place] [address] C Urineon 12-21-2022 Bacteria identified Cx Nom (U) Normal [facility] Comment on above: Performed By: #### 2 303031, 74484599 ####[address] [address] CBC w/ Auto Diffon Erythrocyte distribution width (RBC) [Ratio] 18.4 % High 10.9-14.2 [facility] Comment on above: Performed By: #### 2 816729, 650790724, 75907351, 7731433, 7875541 ####[address] [address] Hematocrit (Bld) [Volume fraction] 26.8 % Low 34.0-46.0 [facility] Comment on above: Performed By: #### 2 074707, 886711749, 09895002, 9460481, 1098310 ####[facility] [address] [place] [address] Hemoglobin (Bld) [Mass/Vol] 9.3 g/dL Low 12.0-16.0 [facility] Comment on above: Performed By: #### 2 706888, 463975587, 09327450, 4316284, 9005089 ####[facility] [address] [place] [address] MCH (RBC) [Entitic mass] 34.3 pg High 27.0-34.0 [facility] Comment on above: Performed By: #### 2 592852, 035992050, 09752599, 4335416, 4473751 ####[address] [place] [address] MCHC (RBC) [Mass/Vol] 34.8 g/dL Normal 31.4-36.0 [facility] Comment on above: Performed By: #### 2 764121, 805661473, 20384557, 3900595, 6945984 ####[address] [place] [address] MCV (RBC) [Entitic vol] 98.6 fL Normal 80.0-100.[address] [facility] Comment on above: Performed By: #### 2 356062, 715843077, 40729174, 5895828, 1631647 ####[address] [address] Platelet mean volume (Bld) [Entitic vol] 6.8 fL Normal 6.4-10.8 [facility] Comment on above: Performed By: #### 2 018478, 159204202, 23953482, 2141879, 1557068 ####[address] [address] Platelets (Bld) [#/Vol] 201.0 E9/L Normal 150. 0-500. 0 [facility] Comment on above: Performed By: #### 2 907366, 355793949, 06520894, 5212577, 8067780 ####[address] [address] RBC (Bld) [#/Vol] 2.7 E12/L Low 4.3-5.9 [facility] Comment on above: Performed By: #### 2 456526, 041703409, 02370656, 3380131, 6819279 ####[address] [address] WBC corrected for nucl RBC Auto (Bld) [#/Vol] 3.3 E9/L Low 4.0-11.0 [facility] Comment on above: Performed By: #### 2 725757, 903339757, 48702803, 5097979, 7652879 ####[address] [address] CHEMISTRYOrdered By: SYSTEM SYSTEM on 12-21-2022 Anion gap [Moles/Vol] 11 mmol/L Normal 6 - 16 mEq/L [facility] Remisol Calcium [Mass/Vol] 8.9 mg/dL Normal 8.9 - 11. 1 mg/dL [facility] Chloride [Moles/Vol] 112 mmol/L High 101 - 1 11 mmol/L [facility] CO2 [Moles/Vol] 22 mmol/L Normal 21 - 31 mmol/L [facility] Remisol Creatinine [Mass/Vol] 1.4 mg/dL High 0.5 - 1.3 mg/dL [facility] Remisol GFR/1.73 sq M.predicted among non-blacks MDRD (S/P/Bld) [Vol rate/Area] 40 mL/min/1.73 m2 Low >=59mL/min /1.73 m2 [facility] Chem S Glucose [Mass/Vol] 102 mg/dL Normal 55 - 199 mg/dL [facility] Remisol Potassium [Moles/Vol] 4.0 mmol/L Normal 3.5 - 5.3 mmol/L [facility] Remisol Sodium [Moles/Vol] 141 mmol/L Normal 135 - 145 mmol/L [facility] Remisol Urea nitrogen [Mass/Vol] 36 mg/dL High 5 - 21 mg/dL [facility] Remisol Urea nitrogen/Creatinine [Mass ratio] 26 mg/mg High 10 - 20 [facility] Remisol CHEMISTRYOrdered By: Gavino Lyle on 12-21-2022 HbA1c (Bld) [Mass fraction] 7.1 % High <=5.9% [facility] ChemAutoSS Capillary Glucose POCon Glucose [Mass/Vol] 127 mg/dL High 55-99 [facility] Comment on above: Result Comment: Navin BOSE Performed By: #### 2 [id number] ####[facility] [address] [place] [address] Glucose [Mass/Vol] 160 mg/dL High 55-99 [facility] Comment on above: Result Comment: Navin BOSE Performed By: #### 2 [id number] ####[facility] [address] [place] [address] Glucose [Mass/Vol] 132 mg/dL High 55-99 [facility] Comment on above: Result Comment: Navin BOSE Performed By: #### 2 [id number] ####[facility] [address] [place] [address] Glucose [Mass/Vol] 115 mg/dL High 55-99 [facility] Comment on above: Result Comment: Navin uriostegui RN/ Performed By: #### 2 [id number] ####[facility] [address] [place] [address] HEMATOLOGYOrdered By: SYSTEM SYSTEM on 12-21-2022 Basophils/100 [...] Low 4.0 - 11.0 E9/L [facility] HemeAutoSS OliE1zjf 12-21-2022 HbA1c (Bld) [Mass fraction] 7.1 % High <=5.9 [facility] Comment on above: Performed By: #### 2 184155, 101450197, 96027091, 6720305, 5142158 ####[facility] [address] [place] [address] Insurance Correspondence Off iceon 12-21-2022 Insurance Correspondence Office [id number]#1.00CD:12 7 Normal [facility] 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 Note - Attila e Manageron 12-21-2022 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 Note - Guest History Clerk Normal [facility] Comment on above: Result Comment: Elec tronically Signed By: Brooklynn Connor\Date and Time Signed: 12/21/22 11:15 EDT 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 Note - Rafat n 12-21-2022 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 Note - OT Normal [facility] 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 Note - PTo n 12-21-2022 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 Note - PT Normal [facility] 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 Note - Soc ial Workeron 12-21-2022 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 Note - Health Spa Manager Normal [facility] Message from Medicareon 09-0 Message from Medicare [id number]#1.00CD:12 7 Normal [facility] Progress Note-Physicianon Progress Note-Physician Normal [facility] Comment on above: Result Comment: Elec tronically Signed By: Nathalia LUDWIG, Zaheer Song.br\Date and Time Signed: 12/21/22 14:15 EDT eGFRon 12-21-2022 GFR/1.73 sq M.predicted among non-blacks MDRD (S/P/Bld) [Vol rate/Area] 40 mL/min/1.73 m2 Low >=59 [facility] Comment on above: Order Comment: Order added by Discern Expert. Result Comment: Core Baker aubrey kidney disease could be indicated at eGFR's of less than 60 mL/min/1.73m2. Kidney failure is indicated at less than 15 mL/min/1.73m2. Performed By: #### 2 681774, 467264666, 76589751, 3791700, 4886591 ####[facility] [address] [place] [address] Auto Diffon 12-20-2022 Basophils/100 WBC (Bld) 3.5 % High 0.0-2.[address] [facility] Comment on above: Order Comment: Order Added by Discern Expert. Performed By: #### 2 113799, 86033369, 8258806, 68408646, 8474508, 2082177 ####[facility] [address] [place] [address] Basophils/Leukocytes Auto (Bld) [Pure # fraction] 0.1 E9/L Normal 0.0-0.2 [facility] Comment on above: Order Comment: Order Added by Discern Expert. Performed By: #### 2 129908, 29150792, 2178635, 57929343, 5863557, 1080949 ####[facility] [address] [place] [address] Eosinophils/100 WBC (Bld) 1.3 % Normal 0.0-8.0 [facility] Comment on above: Order Comment: Order Added by Discern Expert. Performed By: #### 2 725267, 57533279, 5487188, 25664463, 1546971, 6790428 ####[facility] [address] [place] [address] Eosinophils/Leukocytes Auto (Bld) [Pure # fraction] 0.0 E9/L Normal 0.0-0.5 [facility] Comment on above: Order Comment: Order Added by Discern Expert. Performed By: #### 2 364078, 66100976, 0188720, 36780988, 9940970, 5657802 ####[address] [address] Lymphocytes/100 WBC (Bld) 28.4 % Normal 14.0-50.0 [facility] Comment on above: Order Comment: Order Added by Discern Expert. Performed By: #### 2 350623, 42985853, 9051273, 72828279, 5581810, 5668508 ####[address] [address] Lymphocytes/Leukocytes Auto (Bld) [Pure # fraction] 1.1 E9/L Normal 1.0-4.0 [facility] Comment on above: Order Comment: Order Added by Faviola Expert. Performed By: #### 2 939101, 80901632, 8816183, 38467904, 3518033, 5113884 ####[address] [place] [address] Monocytes/100 WBC (Bld) 12.5 % Normal 4.0-14.0 [facility] Comment on above: Order Comment: Order Added by Discern Expert. Performed By: #### 2 558572, 86058204, 3765281, 57934003, 9839877, 6229860 ####[address] [place] [address] Monocytes/Leukocytes Auto (Bld) [Pure # fraction] 0.5 E9/L Normal 0.2-1.0 [facility] Comment on above: Order Comment: Order Added by Discern Expert. Performed By: #### 2 718693, 50377694, 8908628, 43258565, 7042586, 2138005 ####[facility] [address] [place] [address] Neutrophils/100 WBC (Bld) 54.3 % Normal 36.0-75.0 [facility] Comment on above: Order Comment: Order Added by Discern Expert. Performed By: #### 2 980592, 31650148, 0666640, 60514556, 0089956, 5146164 ####[facility] [address] [place] [address] Neutrophils/Leukocytes Auto (Bld) [Pure # fraction] 2.1 E9/L Normal 2.0-7.5 [facility] Comment on above: Order Comment: Order Added by Discern Expert. Performed By: #### 2 598653, 94629544, 5826356, 64578813, 3172452, 0793295 ####[facility] [address] [place] [address] BMPon 12-20-2022 Creatinine [Mass/Vol] 1.3 mg/dL Normal 0.5-1.3 [facility] Comment on above: Performed By: #### 2 052040, 04801866, 0681776, 76549490, 4196200, 2420970 ####[facility] [address] [place] [address] Urea nitrogen [Mass/Vol] 36 mg/dL High 5-21 [facility] Comment on above: Performed By: #### 2 897304, 98533137, 9638993, 19421515, 4088792, 8982916 ####[facility] [address] [place] [address] Urea nitrogen/Creatinine [Mass ratio] 28 No Units High 10-20 [facility] Comment on above: Performed By: #### 2 183846, 62361799, 6412888, 94590949, 2752288, 2395525 ####[facility] [address] [place] [address] Anion gap [Moles/Vol] 13 mmol/L Normal 6-16 [facility] Comment on above: Performed By: #### 2 511242, 13026599, 6902007, 20954538, 4772401, 6965991 ####[facility] [address] [place] [address] Calcium [Mass/Vol] 9.6 mg/dL Normal 8.9-11.1 [facility] Comment on above: Performed By: #### 2 295228, 32768378, 9605952, 05482145, 6164917, 2491133 ####[facility] [address] [place] [address] Chloride [Moles/Vol] 108 mmol/L Normal 101-111 [facility] Comment on above: Performed By: #### 2 447084, 88891559, 7432921, 26261729, 6793081, 6038486 ####[facility] [address] [place] [address] CO2 [Moles/Vol] 21 mmol/L Normal 21-31 [facility] Comment on above: Performed By: #### 2 864120, 44198698, 4477971, 86646359, 5253589, 1121232 ####[facility] [address] [place] [address] Glucose [Mass/Vol] 136 mg/dL Normal 55-199 [facility] Comment on above: Result Comment: If t his glucose result represents a fasting glucose, interpretation should refer to the following reference range: 55-99 mg/dL Performed By: #### 2 521770, 07906913, 6223392, 09624103, 9805015, 0361004 ####[facility] [address] [place] [address] Potassium [Moles/Vol] 4.2 mmol/L Normal 3.5-5.3 [facility] Comment on above: Performed By: #### 2 265315, 19721314, 9071035, 14149958, 0186807, 2606860 ####[facility] [address] [place] [address] Sodium [Moles/Vol] 138 mmol/L Normal 135-145 [facility] Comment on above: Performed By: #### 2 041860, 06030063, 4152181, 37442814, 2324106, 2697805 ####[address] [place] [address] CBC w/ Auto Diffon 3 Erythrocyte distribution width (RBC) [Ratio] 19.0 % High 10.9-14.2 [facility] Comment on above: Performed By: #### 2 138427, 63873500, 8883425, 52182095, 7876745, 0401640 ####[address] [place] [address] Hematocrit (Bld) [Volume fraction] 31.3 % Low 34.0-46.0 [facility] Comment on above: Performed By: #### 2 586707, 84667121, 0092982, 97489792, 0302878, 9707348 ####[address] [address] Hemoglobin (Bld) [Mass/Vol] 10.4 g/dL Low 12.0-16.0 [facility] Comment on above: Performed By: #### 2 296447, 14587460, 7967131, 34602299, 7436997, 2676849 ####[facility] [address] [place] [address] MCH (RBC) [Entitic mass] 33.3 pg Normal 27.0-34.0 [facility] Comment on above: Performed By: #### 2 453302, 85626276, 0907118, 10402333, 3637639, 5143867 ####[address] [address] MCHC (RBC) [Mass/Vol] 33.3 g/dL Normal 31.4-36.0 [facility] Comment on above: Performed By: #### 2 873305, 09986801, 0440526, 55363966, 0316510, 0758272 ####[facility] [address] [place] [address] MCV (RBC) [Entitic vol] 99.8 fL Normal 80.0-100.[address] [facility] Comment on above: Performed By: #### 2 737234, 75739528, 6479238, 69242868, 5560460, 9876298 ####[address] [place] [address] Platelet mean volume (Bld) [Entitic vol] 6.8 fL Normal 6.4-10.8 [facility] Comment on above: Performed By: #### 2 112893, 24034983, 4020162, 12697032, 2607026, 2363612 ####[address] [address] Platelets (Bld) [#/Vol] 212.0 E9/L Normal 150. 0-500. 0 [facility] Comment on above: Performed By: #### 2 054962, 97859363, 8340792, 55745416, 7392951, 4759580 ####[address] [address] RBC (Bld) [#/Vol] 3.1 E12/L Low 4.3-5.9 [facility] Comment on above: Performed By: #### 2 829596, 71449576, 5829106, 07503735, 8855260, 2169392 ####[address] [place] [address] WBC corrected for nucl RBC Auto (Bld) [#/Vol] 3.9 E9/L Low 4.0-11.0 [facility] Comment on above: Performed By: #### 2 163060, 28005372, 7698373, 39431279, 2128293, 0445196 ####[facility] [address] [place] [address] CHEMISTRYOrdered By: SYSTEM SYSTEM on 12-20-2022 Troponin [...] 3.8 g/dL Normal 1.4 - 4.0 gm/dL [facility] Glucose [Mass/Vol] 136 mg/dL Normal 55 - 199 mg/dL [facility] Potassium [Moles/Vol] 4.2 mmol/L Normal 3.5 - 5.3 mmol/L [facility] Protein [Mass/Vol] 7.3 g/dL Normal 6.0 - 7.8 gm/dL [facility] Sodium [Moles/Vol] 138 mmol/L Normal 135 - 145 mmol/L [facility] Remisol Troponin I.cardiac [Mass/Vol] 9.80 pg/mL Low 10.10 - 27.10 pg/mL [facility] Urea nitrogen [Mass/Vol] 36 mg/dL High 5 - 21 mg/dL [facility] Urea nitrogen/Creatinine [Mass ratio] 28 mg/mg High 10 - 20 [facility] Consent for Treatmenton 11-22 Consent for Treatment [id number]#1.00CD:12 7 Normal [facility] Consent for Treatment [id number]#1.00CD:1 27 Normal [facility] Discharge Instructionson Discharge Instructions [id number]#1.00CD:1 27 Normal [facility] ED Clinical Summaryon 2022 ED Clinical Summary Normal [facility] ED Clinical Summary Normal [facility] ED Note-Physicianon 12-21-19 ED Note-Physician Normal [facility] Comment on above: Result Comment: Elec tronically Signed By: Pedro Nava DO\.br\Date and Time Signed: 12/20/22 19:22 EDT ED Note-Physician Normal [facility] Comment on above: Result Comment: Elec tronically Signed By: David Tong MD\.br\Date and Time Signed: 12/20/22 00:40 EDT ED Patient Education Noteon 12-20-2022 ED Patient Education Note Normal [facility] ED Patient Education Note Normal [facility] ED Patient Summaryon 023 ED Patient Summary Normal [facility] ED Patient Summary Normal [facility] HEMATOLOGYOrdered By: SYSTEM SYSTEM on 12-20-2022 Basophils/100 [...] 33.3 g/dL Normal 31.4 - 36.0 gm/dL [facility] HemeAutoSS MCV (RBC) [Entitic vol] 99.8 fL Normal 80.0 - 100.0 fL [facility] HemeAutoSS Platelet mean volume (Bld) [Entitic vol] 6.8 fL Normal 6.4 - 10.8 fL [facility] HemeAutoSS Platelets (Bld) [#/Vol] 212.0 E9/L Normal 150. 0 - 500.0 E9/L [facility] HemeAutoSS RBC (Bld) [#/Vol] 3.1 E12/L Low 4.3 - 5.9 E12/L [facility] HemeAutoSS WBC corrected for nucl RBC Auto (Bld) [#/Vol] 3.9 E9/L Low 4.0 - 11.0 E9/L [facility] HemeAutoSS Hep Func Panelon 12-20-2022 Bilirubin.direct [Mass/Vol] 0.1 mg/dL Normal 0.1-0.4 [facility] Comment on above: Performed By: #### 2 202695, 79033800, 3026349, 66921498, 5632393, 2730469 ####[facility] [address] [place] [address] Bilirubin.indirect [Mass or moles/Vol] 0.8 mg/dL Normal 0.1-0.9 [facility] Comment on above: Performed By: #### 2 379584, 23454095, 9367624, 83523870, 3623941, 0833826 ####[facility] [address] [place] [address] Albumin [Mass/Vol] 3.5 g/dL Normal 3.3-5.0 [facility] Comment on above: Performed By: #### 2 239932, 42966982, 8090177, 20151643, 7467409, 4826779 ####[facility] [address] [place] [address] Albumin/Globulin (S) [Mass conc ratio] 0.9 Low 1.1-2.2 [facility] Comment on above: Performed By: #### 2 181602, 96972917, 8407117, 53837032, 9941033, 0892086 ####[facility] [address] [place] [address] ALP [Catalytic activity/Vol] 101 Int._Unit/L High 21-98 [facility] Comment on above: Performed By: #### 2 222614, 28077403, 5694075, 48980104, 0210864, 8443589 ####[facility] [address] [place] [address] ALT No additional P-5'-P [Catalytic activity/Vol] 20 Int._Unit/L Normal 6-46 [facility] Comment on above: Performed By: #### 2 825162, 95512061, 8173336, 95240744, 6262314, 0685732 ####[facility] [address] [place] [address] AST [Catalytic activity/Vol] 18 Int._Unit/L Normal 5-43 [facility] Comment on above: Performed By: #### 2 609677, 96494596, 2488319, 72860661, 4219990, 7871831 ####[facility] [address] [place] [address] Bilirubin [Mass/Vol] 0.9 mg/dL Normal 0.0-1.1 [facility] Comment on above: Performed By: #### 2 593104, 45257485, 5677814, 13952215, 4489260, 3630520 ####[facility] [address] [place] [address] Globulin (S) [Mass/Vol] 3.8 g/dL Normal 1.4-4.[address] [facility] Comment on above: Performed By: #### 2 767398, 50830938, 0347004, 06648667, 5149659, 9999882 ####[facility] [address] [place] [address] Protein [Mass/Vol] 7.3 g/dL Normal 6.0-7.8 [facility] [place] Comment on above: Performed By: #### 2 422932, 19539978, 2353441, 94321839, 2403005, 2433472 ####[facility] [address] [place] [address] Laboratory - Microbiology an d Antimicrobial susceptibilityOrdered By: Ninfa Sawyer on 12-20-2022 Bacteria identified Cx Nom (U) 1,000 cfu/ml Mixed skin contaminants [facility] Monitor Recordon 12-20-2022 Monitor Record [id number]:1 27 Normal [facility] Monitor Record [id number]:1 27 Normal [facility] Pre-Arrival Noteon Pre-Arrival Note Normal [facility] Troponin 0 Hr.on 12-20-2022 Troponin I.cardiac [Mass/Vol] 9.80 pg/mL Low 10.10-27.1 0 [facility] Comment on above: Result Comment: The 95% CI (Confidence Interval) PPV (Positive Predictive Value) for myocardial infarction in females is 38 pg/mL, in males 51 pg/mL. The results should be used in conjunction with clinical conditions of myocardial infarction.(Access High Sensitivity Troponin I Instructions For Use, [employer]finder App, November 2017) Performed By: #### 2 893938, 04518090, 2160989, 76025834, 7688244, 8727127 ####[facility] [address] [place] [address] Troponin 3 Hr.on 12-20-2022 Troponin I.cardiac [Mass/Vol] 10.20 pg/mL Normal 10.10-27.1 0 [facility] Comment on above: Result Comment: The 95% CI (Confidence Interval) PPV (Positive Predictive Value) for myocardial infarction in females is 38 pg/mL, in males 51 pg/mL. The results should be used in conjunction with clinical conditions of myocardial infarction.(Access High Sensitivity Troponin I Instructions For Use, Pathfinder App, November 2017) Performed By: #### 1 [id number] ####[facility] [address] [place] [address] UA With Cult Reflexon 2022 Bilirubin Ql (U) Negative Normal Negative [facility] Comment on above: Performed By: #### 1 4012949, 8167949 ####[address] [address] Clarity (U) CLEAR Normal Clear [facility] Comment on above: Performed By: #### 1 4063820, 4639188 ####[place] [id number] Color (U) STRAW Abnormal Yellow [facility] [place] Comment on above: Performed By: #### 1 8198297, 8803146 ####[place] [address] Epithelial cells.squamous LM.HPF (Urine sed) [#/Area] 0-2 Normal 0-2 [facility] Comment on above: Performed By: #### 1 3153043, 4360221 ####[place] [id number] Glucose Test strip (U) [Mass/Vol] Negative Normal Negative [facility] [place] Comment on above: Performed By: #### 1 4386532, 2812359 ####[address] [address] Hemoglobin Ql (U) TRACE Abnormal Negative [facility] Comment on above: Performed By: #### 1 8692414, 2414057 ####[address] [address] Ketones (U) [Mass/Vol] Negative Normal Negative Fi [facility] Comment on above: Performed By: #### 1 7001534, 8651225 ####[address] [address] [place].plasma/[place]. RBC (Bld) [Mass ratio] 0-3 Normal 0-3 [facility] [place] Comment on above: Performed By: #### 1 7477753, 7787157 ####[address] [address] Nitrite Ql (U) Negative Normal Negative [facility] Comment on above: Performed By: #### 1 9924125, 1896389 ####[place] [address] pH (U) 5.5 [pH] Invalid Interpretation Code 5.0-9.0 [facility] Comment on above: Performed By: #### 1 4170318, 7815641 ####[place] [address] Protein (U) [Mass/Vol] Negative Normal Negative [facility] Comment on above: Performed By: #### 1 7857840, 5751982 ####[place] [address] Specific gravity (U) [Rel density] <=1.005 Invalid Interpretation Code 1.005-1.03 0 [facility] [place] Comment on above: Performed By: #### 1 3629293, 2385514 ####[place] [address] Type of Urine collection method Clean Catch Normal [facility] [place] Comment on above: Performed By: #### 1 9489428, 2809845 ####[place] [id number] Urobilinogen Qn (U) 0.2 {Tj'U}/dL Normal 0.0-1.0 [facility] Comment on above: Performed By: #### 1 1937246, 7199338 ####[place] [address] WBC Auto Ql (U) 1+ Abnormal Negative [facility] [place] Comment on above: Performed By: #### 1 1693509, 1482432 ####[place] [address] WBC LM.HPF (Urine sed) [#/Area] 6-15 Abnormal 0-5 [facility] Comment on above: Performed By: #### 1 9129267, 4899325 ####[place] [address] UA Spec Desc Catheter Normal [facility] [place] Comment on above: Result Comment: Mini cath specimen Performed By: #### 2 286628, 41766357 ####[facility] [address] [place] [address] Bacteria LM Ql (Urine sed) 2+ /HPF Abnormal Trace [facility] Comment on above: Performed By: #### 2 558333, 83363224 ####[facility] [address] [place] [address] Bilirubin Ql (U) Negative Normal Negative [facility] Comment on above: Performed By: #### 2 260313, 61508854 ####[facility] [address] [place] [address] Clarity (U) CLEAR Normal Clear [facility] Comment on above: Performed By: #### 2 076029, 33937560 ####[address] [address] Color (U) YELLOW Normal Yellow [facility] [place] Comment on above: Performed By: #### 2 565440, 33689329 ####[facility] [address] [place] [address] Epithelial cells.squamous LM.HPF (Urine sed) [#/Area] 0-2 Normal 0-2 [facility] Comment on above: Performed By: #### 2 424306, 40963123 ####[facility] [address] [place] [address] Glucose Test strip (U) [Mass/Vol] Negative Normal Negative [facility] Comment on above: Performed By: #### 2 534936, 63450755 ####[facility] [address] [place] [address] Hemoglobin Ql (U) Negative Normal Negative [facility] Comment on above: Performed By: #### 2 550047, 23737399 ####[facility] [address] [place] [address] Ketones (U) [Mass/Vol] Negative Normal Negative Fi [facility] Comment on above: Performed By: #### 2 448745, 43419397 ####[facility] [address] [place] [address] [place].plasma/[place]. RBC (Bld) [Mass ratio] 0-3 Normal 0-3 [facility] [place] Comment on above: Performed By: #### 2 085256, 84895824 ####[facility] [address] [place] [address] Nitrite Ql (U) Positive Abnormal Negative [facility] Comment on above: Performed By: #### 2 419093, 96864206 ####[address] [address] pH (U) 6.0 [pH] Invalid Interpretation Code 5.0-9.0 [facility] Comment on above: Performed By: #### 2 292432, 79585658 ####[address] [address] Protein (U) [Mass/Vol] Negative Normal Negative [facility] Comment on above: Performed By: #### 2 447499, 84781661 ####[address] [address] Specific gravity (U) [Rel density] 1.025 Invalid Interpretation Code 1.005-1.03 0 [facility] Comment on above: Performed By: #### 2 267308, 69666616 ####[address] [address] Urobilinogen Qn (U) 0.2 {Tj'U}/dL Normal 0.0-1.0 [facility] Comment on above: Performed By: #### 2 011671, 92059268 ####[address] [address] WBC Auto Ql (U) TRACE Abnormal Negative [facility] Comment on above: Performed By: #### 2 112970, 22960599 ####[address] [address] WBC LM.HPF (Urine sed) [#/Area] 0-5 Normal 0-5 [facility] Comment on above: Performed By: #### 2 767610, 72455986 ####[facility] [address] [place] [address] URINALYSISOrdered By: Lisette Medina on 12-20-2022 Bilirubin [...] PM) Normal Negative [facility] UA Auto SS [place].plasma/[place]. RBC (Bld) [Mass ratio] 0-3 /HPF Normal [...] [facility] UA Auto SS Urobilinogen Qn (U) 0.9569182 {Tj'U}/dL Normal 0.0 - 1.0 EU/dL [facility] UA Auto SS WBC Auto Ql (U) 1+ *ABN* (12/20/22 5:18 PM) Invalid Interpretation Code Negative [facility] UA Auto SS WBC LM.HPF (Urine sed) [#/Area] 6-15 /HPF Invalid Interpretation Code 0-5/HPF [facility] UA Auto SS XR Chest Single Viewon 12-20 XR Chest Single View Normal [facility] XR Chest Single View Normal [facility] eGFRon 12-20-2022 GFR/1.73 sq M.predicted among non-blacks MDRD (S/P/Bld) [Vol rate/Area] 43 mL/min/1.73 m2 Low >=59 [facility] Comment on above: Order Comment: Order added by Discern Expert. Result Comment: Core Baker aubrey kidney disease could be indicated at eGFR's of less than 60 mL/min/1.73m2. Kidney failure is indicated at less than 15 mL/min/1.73m2. Performed By: #### 2 324503, 73491008, 0879652, 24269551, 0154524, 5858802 ####[facility] [address] [place] [address] Auto Diffon 12-19-2022 Basophils/100 WBC (Bld) 0.4 % Normal 0.0-2.[address] [facility] Comment on above: Order Comment: Order Added by Discern Expert. Performed By: #### 2 181142, 89666949, 06495088, 9261365, 8627395, 84045020, 1700901, 3828297 ####[facility] [address] [place] [address] Basophils/Leukocytes Auto (Bld) [Pure # fraction] 0.0 E9/L Normal 0.0-0.2 [facility] Comment on above: Order Comment: Order Added by Discern Expert. Performed By: #### 2 045660, 11256114, 28531053, 7232097, 4216459, 99194599, 9872377, 4614726 ####[facility] [address] [place] [address] Eosinophils/100 WBC (Bld) 1.6 % Normal 0.0-8.0 [facility] Comment on above: Order Comment: Order Added by Discern Expert. Performed By: #### 2 050232, 13627095, 54683180, 6127125, 9902938, 71208518, 1209220, 3393897 ####[facility] [address] [place] [address] Eosinophils/Leukocytes Auto (Bld) [Pure # fraction] 0.1 E9/L Normal 0.0-0.5 [facility] Comment on above: Order Comment: Order Added by Discern Expert. Performed By: #### 2 628830, 12722234, 74427176, 2334515, 3111099, 12226384, 2543918, 1683795 ####[place] [address] [place] [address] Lymphocytes/100 WBC (Bld) 34.4 % Normal 14.0-50.0 [facility] Comment on above: Order Comment: Order Added by Discern Expert. Performed By: #### 2 460180, 04599200, 59332806, 3545774, 5643862, 67766089, 4091281, 9470786 ####[address] [address] Lymphocytes/Leukocytes Auto (Bld) [Pure # fraction] 1.2 E9/L Normal 1.0-4.0 [facility] Comment on above: Order Comment: Order Added by Discern Expert. Performed By: #### 2 521111, 00065055, 06200065, 0796096, 8468341, 39974020, 7529865, 6694704 ####[facility] [address] [place] [address] Monocytes/100 WBC (Bld) 12.8 % Normal 4.0-14.0 [facility] Comment on above: Order Comment: Order Added by Faviola Expert. Performed By: #### 2 569561, 79576358, 39131799, 8153175, 0198457, 41935690, 5986322, 7894635 ####[place] [address] [place] [address] Monocytes/Leukocytes Auto (Bld) [Pure # fraction] 0.4 E9/L Normal 0.2-1.0 [facility] Comment on above: Order Comment: Order Added by Discern Expert. Performed By: #### 2 811482, 77995801, 25885833, 7536001, 9291537, 69294137, 8078361, 6586826 ####[facility] [address] [place] [address] Neutrophils/100 WBC (Bld) 50.8 % Normal 36.0-75.0 [facility] Comment on above: Order Comment: Order Added by Discern Expert. Performed By: #### 2 178538, 33525324, 20509562, 1732761, 4648758, 66625709, 2845009, 2245701 ####[facility] [address] [place] [address] Neutrophils/Leukocytes Auto (Bld) [Pure # fraction] 1.7 E9/L Low 2.0-7.5 [facility] Comment on above: Order Comment: Order Added by Discern Expert. Performed By: #### 2 474136, 69598498, 53229778, 1710918, 8799290, 77649107, 5338754, 7240074 ####[facility] [address] [place] [address] BMPon 12-19-2022 Anion gap [Moles/Vol] 10 mmol/L Normal 6-16 [facility] Comment on above: Performed By: #### 2 424359, 19786853, 87170887, 6661351, 7898063, 01808781, 1519801, 5806617 ####[facility] [address] [place] [address] Calcium [Mass/Vol] 9.4 mg/dL Normal 8.9-11.1 [facility] Comment on above: Performed By: #### 2 159703, 78172571, 28171130, 4968269, 7066185, 48095442, 3865012, 2610709 ####[facility] [address] [place] [address] Chloride [Moles/Vol] 111 mmol/L Normal 101-111 [facility] Comment on above: Performed By: #### 2 816534, 52490293, 41176001, 9958355, 5105383, 46228659, 4933298, 9625712 ####[facility] [address] [place] [address] CO2 [Moles/Vol] 25 mmol/L Normal 21-31 [facility] Comment on above: Performed By: #### 2 031677, 32370497, 64465806, 3903049, 9267237, 94176435, 2920944, 2943138 ####[facility] [address] [place] [address] Creatinine [Mass/Vol] 1.4 mg/dL High 0.5-1.3 [facility] Comment on above: Performed By: #### 2 077503, 91145480, 90618025, 0304703, 6991742, 45056573, 3369252, 2292405 ####[facility] [address] [place] [address] Glucose [Mass/Vol] 165 mg/dL Normal 55-199 [facility] Comment on above: Result Comment: If t his glucose result represents a fasting glucose, interpretation should refer to the following reference range: 55-99 mg/dL Performed By: #### 2 316450, 62202690, 00697177, 2652405, 0094330, 61972220, 5160556, 4635447 ####[facility] [address] [place] [address] Potassium [Moles/Vol] 4.6 mmol/L Normal 3.5-5.3 [facility] Comment on above: Performed By: #### 2 973152, 90349785, 47240408, 2741080, 8763537, 45160315, 8891045, 4784815 ####[facility] [address] [place] [address] Sodium [Moles/Vol] 141 mmol/L Normal 135-145 [facility] Comment on above: Performed By: #### 2 909261, 59751414, 93964270, 6370421, 0190497, 70623088, 5201789, 9017178 ####[facility] [address] [place] [address] Urea nitrogen [Mass/Vol] 36 mg/dL High 5-21 [facility] Comment on above: Performed By: #### 2 800882, 68579797, 14888990, 8782513, 4096307, 06313335, 5175625, 0468085 ####[facility] [address] [place] [address] Urea nitrogen/Creatinine [Mass ratio] 26 No Units High 10-20 [facility] Comment on above: Performed By: #### 2 157364, 95616878, 68228068, 3245511, 0907101, 87239873, 1906647, 0984789 ####[facility] [address] [place] [address] CBC w/ Auto Diffon 3 Erythrocyte distribution width (RBC) [Ratio] 18.9 % High 10.9-14.2 [facility] Comment on above: Performed By: #### 2 552869, 23029231, 74491082, 9102941, 3080631, 77645632, 7716004, 5583260 ####[facility] [address] [place] [address] Hematocrit (Bld) [Volume fraction] 32.2 % Low 34.0-46.0 [facility] Comment on above: Performed By: #### 2 663549, 05117761, 00231322, 4161337, 0963814, 47525525, 0484954, 8772388 ####[facility] [address] [place] [address] Hemoglobin (Bld) [Mass/Vol] 10.8 g/dL Low 12.0-16.0 [facility] Comment on above: Performed By: #### 2 051945, 93935894, 12374271, 3688380, 1603898, 94434281, 7337242, 3279332 ####[facility] [address] [place] [address] MCH (RBC) [Entitic mass] 33.5 pg Normal 27.0-34.0 [facility] Comment on above: Performed By: #### 2 333710, 49524627, 47772051, 4507798, 6565246, 67990790, 1458900, 2042709 ####[facility] [address] [place] [address] MCHC (RBC) [Mass/Vol] 33.4 g/dL Normal 31.4-36.0 [facility] Comment on above: Performed By: #### 2 941194, 68247535, 67526891, 6691358, 6429250, 13547306, 2456900, 4992288 ####[address] [address] MCV (RBC) [Entitic vol] 100.5 fL High 80.0-100.[address] [facility] Comment on above: Performed By: #### 2 028709, 76568491, 77496483, 9088328, 2912851, 60638830, 5348753, 9643147 ####[address] [address] Platelet mean volume (Bld) [Entitic vol] 7.0 fL Normal 6.4-10.8 [facility] Comment on above: Performed By: #### 2 438512, 32315332, 68110361, 4850094, 3258925, 50974703, 4385953, 9653330 ####[facility] [address] [place] [address] Platelets (Bld) [#/Vol] 204.0 E9/L Normal 150. 0-500. 0 [facility] Comment on above: Performed By: #### 2 383375, 61009964, 68425797, 3137652, 5032347, 86266748, 5733469, 0028520 ####[facility] [address] [place] [address] RBC (Bld) [#/Vol] 3.2 E12/L Low 4.3-5.9 [facility] Comment on above: Performed By: #### 2 632577, 08654271, 65484340, 7559031, 6972096, 45149629, 5065441, 5133326 ####[facility] [address] [place] [address] WBC corrected for nucl RBC Auto (Bld) [#/Vol] 3.4 E9/L Low 4.0-11.0 [facility] Comment on above: Performed By: #### 2 024116, 13107887, 16144714, 6360653, 8697364, 80635576, 8471991, 6975932 ####[facility] [address] [place] [address] CHEMISTRYOrdered By: SYSTEM SYSTEM on 12-19-2022 Albumin [...] 33.4 g/dL Normal 31.4 - 36.0 gm/dL [facility] HemeAutoSS MCV (RBC) [Entitic vol] 100.5 fL High 80.0 - 100.0 fL [facility] HemeAutoSS Platelet mean volume (Bld) [Entitic vol] 7.0 fL Normal 6.4 - 10.8 fL [facility] HemeAutoSS Platelets (Bld) [#/Vol] 204.0 E9/L Normal 150. 0 - 500.0 E9/L FT HemeAutoSS RBC (Bld) [#/Vol] 3.2 E12/L Low 4.3 - 5.9 E12/L FT HemeAutoSS WBC corrected for nucl RBC Auto (Bld) [#/Vol] 3.4 E9/L Low 4.0 - 11.0 E9/L [facility] HemeAutoSS Hep Func Panelon 12-19-2022 Albumin [Mass/Vol] 3.5 g/dL Normal 3.3-5.0 [facility] Comment on above: Performed By: #### 2 897369, 01151527, 81670540, 8065485, 6207339, 78752924, 9815170, 6776194 ####[facility] [address] [place] [address] Albumin/Globulin (S) [Mass conc ratio] 1.0 Low 1.1-2.2 [facility] Comment on above: Performed By: #### 2 377572, 78107028, 38684870, 8480415, 2518355, 66415434, 9314737, 5943047 ####[facility] [address] [place] [address] ALP [Catalytic activity/Vol] 110 Int._Unit/L High 21-98 [facility] Comment on above: Performed By: #### 2 064248, 40980551, 07000667, 5524260, 3539418, 40925145, 9015835, 3313028 ####[facility] [address] [place] [address] ALT No additional P-5'-P [Catalytic activity/Vol] 20 Int._Unit/L Normal 6-46 [facility] Comment on above: Performed By: #### 2 313956, 43789923, 61327228, 2609753, 9293215, 30069522, 1118844, 8007365 ####[facility] [address] [place] [address] AST [Catalytic activity/Vol] 19 Int._Unit/L Normal 5-43 [facility] Comment on above: Performed By: #### 2 041729, 14737912, 14084731, 0633869, 0763521, 33273894, 9900189, 7278837 ####[facility] [address] [place] 110[address] Bilirubin [Mass/Vol] 0.4 mg/dL Normal 0.0-1.1 [facility] Comment on above: Performed By: #### 2 341040, 43138195, 83776254, 3168238, 4490938, 05948906, 8805084, 9424943 ####[place] [address] Bilirubin.direct [Mass/Vol] 0.1 mg/dL Normal 0.1-0.4 [facility] Comment on above: Performed By: #### 2 116793, 04423913, 60270060, 2095291, 8548501, 45855640, 9970997, 8213382 ####[place] [address] [place] [address] Bilirubin.indirect [Mass or moles/Vol] 0.3 mg/dL Normal 0.1-0.9 [facility] Comment on above: Performed By: #### 2 067694, 87965369, 64935145, 7274894, 5397760, 47579633, 0112780, 9756174 ####[address] [place] [address] Globulin (S) [Mass/Vol] 3.5 g/dL Normal 1.4-4.[address] [facility] Comment on above: Performed By: #### 2 257093, 85651340, 03634324, 1978699, 0845598, 22079164, 9191366, 9742169 ####[facility] [address] [place] [address] Protein [Mass/Vol] 7.0 g/dL Normal 6.0-7.8 [facility] Comment on above: Performed By: #### 2 801572, 33938977, 32457819, 0407939, 4730604, 85441461, 4764831, 7793399 ####[facility] [address] [place] [address] Laboratory - Microbiology an d Antimicrobial susceptibilityOrdered By: Jeaneth Morfin on 12-19-2022 Bacteria identified Cx Nom (U) >100,000 cfu/ml Gram Negative Glynn [employer] species [facility] Magnesiumon 12-19-2022 Magnesium [Mass/Vol] 2.0 mg/dL Normal 1.3-2.4 [facility] Comment on above: Performed By: #### 2 448751, 11792028, 49341129, 2129878, 8064262, 52700511, 0573500, 7135019 ####[facility] [address] [place] [address] PT & PTTon 12-19-2022 aPTT Coag (PPP) [Time] 26.7 second(s) Normal 25.1-36.5 [facility] Comment on above: Result Comment: Para meter [...] the same coagulation reagent and instrumentation as [facility]. Currently there are no coagulation studies available worldwide for children to 14 days, and no normal ranges. Heparin therapeutic range (represented by Anti-Factor Xa activity of 0.2 - 0.4 U/mL) corresponds to PTT of 56.6 - 109.0 sec. Performed By: #### 2 968259, 78848804, 49218251, 3262443, 5301858, 62258661, 4034533, 7904583 ####[facility] [address] [place] [address] INR Coag (PPP) [Relative time] 1.0 {INR} Invalid Interpretation Code [facility] Comment on above: Result Comment: INR results are specifically intended to assess patients stabilized on long-term Anticoagulation therapy suggested INR?s ?Less Intensive Anticoagulation? 2.0 ? 3.0Conventional Range 3.0 ? 4.5 Performed By: #### 2 638895, 54871780, 47145134, 0260707, 0727846, 39624177, 5237890, 4846989 ####[facility] [address] [place] [address] PT Coag (PPP) [Time] 11.5 second(s) Normal 9.4-12.5 [facility] Comment on above: Result Comment: 15 d [...] the same coagulation reagent and instrumentation as [facility]. Currently there are no coagulation studies available worldwide for children to 14 days, and no normal ranges. Performed By: #### 2 206517, 34380891, 13208524, 5585750, 7295958, 33873881, 6141802, 7171123 ####[facility] [address] [place] [address] Pre-Arrival Noteon 3 Pre-Arrival Note Normal [facility] Troponin 0 Hr.on 12-19-2022 Troponin I.cardiac [Mass/Vol] 9.40 pg/mL Low 10.10-27.1 0 [facility] Comment on above: Result Comment: The 95% CI (Confidence Interval) PPV (Positive Predictive Value) for myocardial infarction in females is 38 pg/mL, in males 51 pg/mL. The results should be used in conjunction with clinical conditions of myocardial infarction.(Access High Sensitivity Troponin I Instructions For Use, Gaby Marisol, November 2017) Performed By: #### 2 407409, 05921235, 44077493, 5519456, 6012228, 73159902, 1834736, 3912637 ####[facility] [address] [place] [address] URINALYSISOrdered By: Evert Cordoba on 12-19-2022 Bacteria [...] PM) Normal Negative [facility] UA Auto SS [place].plasma/[place]. RBC (Bld) [Mass ratio] 0-3 /HPF Normal [...] Comment: Mini cath specimen Urobilinogen Qn (U) 0.2324702 {Tj'U}/dL Normal 0.0 - 1.0 EU/dL [facility] UA Auto SS WBC Auto Ql (U) Trace *ABN* (12/19/22 10:25 PM) Invalid Interpretation Code Negative [facility] UA Auto SS WBC LM.HPF (Urine sed) [#/Area] 0-5 /HPF Normal 0-5/HPF [facility] UA Auto SS eGFRon 12-19-2022 GFR/1.73 sq M.predicted among non-blacks MDRD (S/P/Bld) [Vol rate/Area] 40 mL/min/1.73 m2 Low >=59 [facility] Comment on above: Order Comment: Order added by Discern Expert. Result Comment: Core Baker aubrey kidney disease could be indicated at eGFR's of less than 60 mL/min/1.73m2. Kidney failure is indicated at less than 15 mL/min/1.73m2. Performed By: #### 2 344358, 39447229, 46280813, 7828442, 7401146, 75701667, 6901564, 0602992 ####[facility] [address] [place] [address] CT Spine Lumbar w/o Contrast on 12-17-2022 CT Spine Lumbar w/o Contrast Normal [facility] Consent for Treatmenton 11-21 Consent for Treatment [id number]#1.00CD:1 27 Normal [facility] Discharge Instructionson Discharge Instructions [id number]#1.00CD:1 27 Normal [facility] ED Clinical Summaryon 2022 ED Clinical Summary Normal Debbie caballero [facility] ED Note-Physicianon 12-18-19 ED Note-Physician Normal [facility] Comment on above: Result Comment: Elec tronically Signed By: Gui Scruggs PA-C\.br\Date and Time Signed: 12/17/22 13:40 EDT\.br\Electronically Co-Signed By: Jeffery Murphy DO\.br\Date and Time Co-Signed: 12/17/22 18:34 EDT ED Patient Education Noteon 12-17-2022 ED Patient Education Note Normal [facility] ED Patient Summaryon 023 ED Patient Summary Normal [facility] Chcf Recordson 12-17 [facility] Records [id number]#1.00CD:1 27 Normal [facility] XR Hip 2-3 Views Right + Pel vison 12-17-2022 XR Hip 2-3 Views Right + Pelvis Normal [facility] XR Spine Lumbosacral 2 or 3 Viewson 12-17-2022 XR Spine Lumbosacral 2 or 3 Views Normal [facility] Family Medicine Office/Clini c Noteon 12-14-2022 Family Medicine Office/Clinic Note Normal [facility] Comment on above: Result Comment: Elec tronically Signed By: Sammy QUEZADA MD\.br\Date and Time Signed: 12/14/22 16:36 EDT ONC - Otheron 12-12-2022 ONC - Other [id number]#1.00CD:1 27 Normal [facility] ONC - Otheron 12-04-2022 ONC - Other [id number]#1.00CD:1 27 Normal [facility] ONC - Otheron 11-21-2022 ONC - Other [id number]#1.00CD:1 27 [facility] XR Pelvis 1 or 2 Viewson XR Pelvis 1 or 2 Views Normal [facility] RAD - MISCon 11-20-2022 RAD - MISC [id number]#1.00CD:1 27 [facility] Family Medicine Office/Clini c Noteon 11-07-2022 Family Medicine Office/Clinic Note Normal [facility] Comment on above: Result Comment: Elec tronically Signed By: Sammy QUEZADA MD\.br\Date and Time Signed: 11/06/22 22:21 EDT Consultation Noteon 11-07-19 Consultation Note [facility] Comment on above: Result Comment: Elec tronically Signed By: Gavino Erickson DO\.br\Date and Time Signed: 11/06/22 07:17 EDT Discharge Documentationon Discharge Documentation [id number]#1.00CD:1 27 [facility] Message from Medicareon 10-20 Message from Medicare [id number]#1.00CD:1 27 [facility] Transfer Documentson 023 Transfer Documents [id number]#1.00CD:1 27 [facility] Insurance Correspondence Off iceon 11-05-2022 Insurance Correspondence Office [id number]#1.00CD:12 7 [facility] Inpatient Clinical Summaryon 11-04-2022 Inpatient Clinical Summary [facility] Inpatient Patient Summaryon 11-04-2022 Inpatient Patient Summary [facility] Inpatient Patient Summary [facility] 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 Note - Attila e Manageron 11-04-2022 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 Note - Guest History Clerk [facility] Comment on above: Result Comment: Elec tronically Signed By: Florence Ortega\.br\Date and Time Signed: 11/04/22 13:07 EDT CHEMISTRYOrdered By: SYSTEM SYSTEM on 11-03-2022 25-hydroxyvitamin D3 [Mass/Vol] ng/mL Low 30.0 - 100.0 ng/mL [facility] Remisol 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 Note - Attila e Manageron 11-03-2022 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 Note - Guest History Clerk Normal [facility] Comment on above: Result Comment: Elec tronically Signed By: Florence Ortega\.br\Date and Time Signed: 11/03/22 10:38 EDT Progress Note-Physicianon Progress Note-Physician Normal [facility] Comment on above: Result Comment: Elec tronically Signed By: Trevor HANKS, Wyatt\.br\Date and Time Signed: 11/03/22 08:08 EDT RPR with Conf Rfxon 11-04-19 Reagin Ab RPR Ql (S) Non-Reactive Invalid Interpretation Code Non Reactive [facility] Comment on above: Result Comment: Perf ormed at: [facility] [address] [id number] PhD [place] Avelar Performed By: #### 2 509423, 1970281, 015868323, 50710551 ####[facility] [address] [place] [address] Vitamin D 25 Hydroxyon 11-03 25-hydroxyvitamin D3 [Mass/Vol] ng/mL Low 30.0-100.0 [facility] Comment on above: Result Comment: Vit beltran D deficiency has been defined as a level of serum 25-OH vitamin D less than 20 ng/mL (1,2) by the [place] of Medicine and an Endocrine Society practice guideline. The Endocrine Society further defined vitamin D insufficiency as a level between 21 and 29 ng/mL (2). 1. IOM ([place] of Medicine). 2010. Dietary reference intakes for calcium and D. [place]: The National Academies Press. 2. Katlin MF, Taylor [place], Jarad DUKE, et al. Evaluation, treatment, and prevention of vitamin D deficiency: an Endocrine Society clinical practice guideline. JCEM. 2010; 96 (7):1911-30. Performed By: #### 5 [id number] ####[address] [place] [address] Auto Diffon 11-02-2022 Basophils/100 WBC (Bld) 1.2 % Normal 0.0-2.0 [facility] Comment on above: Order Comment: Order Added by Discern Expert. Performed By: #### 2 816915, 2732542, 0560859, 9988298, 46338154, 09315706 ####[address] [address] Basophils/Leukocytes Auto (Bld) [Pure # fraction] 0.1 E9/L Normal 0.0-0.2 [facility] Comment on above: Order Comment: Order Added by Discern Expert. Performed By: #### 2 089148, 6423758, 3765247, 7041214, 88505642, 90543137 ####[address] [address] Eosinophils/100 WBC (Bld) 3.3 % Normal 0.0-8.0 [facility] Comment on above: Order Comment: Order Added by Discern Expert. Performed By: #### 2 474766, 9705421, 9994639, 6918384, 50224266, 12251304 ####[address] [address] Eosinophils/Leukocytes Auto (Bld) [Pure # fraction] 0.2 E9/L Normal 0.0-0.5 [facility] Comment on above: Order Comment: Order Added by Discern Expert. Performed By: #### 2 755177, 0589750, 4231233, 9602432, 77943360, 31464226 ####[address] [address] Lymphocytes/100 WBC (Bld) 24.6 % Normal 14.0-50.0 [facility] Comment on above: Order Comment: Order Added by Discern Expert. Performed By: #### 2 688400, 4702800, 4204854, 7152236, 62787430, 97715540 ####[place] [address] [address] Lymphocytes/Leukocytes Auto (Bld) [Pure # fraction] 1.6 E9/L Normal 1.0-4.0 [facility] Comment on above: Order Comment: Order Added by Discern Expert. Performed By: #### 2 450041, 7461912, 2968563, 3951315, 62849854, 93201689 ####[address] [address] Monocytes/100 WBC (Bld) 5.0 % Normal 4.0-14.0 [facility] Comment on above: Order Comment: Order Added by Discern Expert. Performed By: #### 2 497899, 2567921, 3369966, 3860545, 66201358, 04307872 ####[address] [address] Monocytes/Leukocytes Auto (Bld) [Pure # fraction] 0.3 E9/L Normal 0.2-1.0 [facility] Comment on above: Order Comment: Order Added by Discern Expert. Performed By: #### 2 771927, 8640720, 5744590, 6593453, 85734659, 71594809 ####[address] [address] Neutrophils/100 WBC (Bld) 65.9 % Normal 36.0-75.0 [facility] Comment on above: Order Comment: Order Added by Discern Expert. Performed By: #### 2 244000, 6681137, 8138660, 5770634, 16439176, 41278342 ####[address] [address] Neutrophils/Leukocytes Auto (Bld) [Pure # fraction] 4.4 E9/L Normal 2.0-7.5 [facility] Comment on above: Order Comment: Order Added by Faviola Expert. Performed By: #### 2 060082, 9734393, 5861362, 6067245, 11522954, 29461106 ####[address] [address] BMPon 11-02-2022 Creatinine [Mass/Vol] 1.3 mg/dL Normal 0.5-1.3 [facility] Comment on above: Performed By: #### 2 550596, 9300308, 7016563, 9988873, 52704778, 33368802 ####[facility] [address] [place] [address] Urea nitrogen [Mass/Vol] 26 mg/dL High 5-21 [facility] Comment on above: Performed By: #### 2 378814, 3005141, 7611535, 8128473, 18968758, 93542769 ####[facility] [address] [place] [address] Urea nitrogen/Creatinine [Mass ratio] 20 No Units Normal 10-20 [facility] Comment on above: Performed By: #### 2 098901, 9671369, 6367635, 3989118, 96718469, 32836048 ####[facility] [address] [place] [address] Anion gap [Moles/Vol] 15 mmol/L Normal 6-16 [facility] Comment on above: Performed By: #### 2 281761, 2283086, 6044618, 4031484, 55257000, 83218978 ####[facility] [address] [place] [address] Calcium [Mass/Vol] 9.1 mg/dL Normal 8.9-11.1 [facility] Comment on above: Performed By: #### 2 543534, 0466639, 3934915, 8842729, 38671939, 36284688 ####[facility] [address] [place] [address] Chloride [Moles/Vol] 105 mmol/L Normal 101-111 [facility] Comment on above: Performed By: #### 2 464385, 1638627, 5069518, 1777671, 33198020, 97478339 ####[facility] [address] [place] [address] CO2 [Moles/Vol] 22 mmol/L Normal 21-31 [facility] Comment on above: Performed By: #### 2 752480, 9366697, 9104714, 7591578, 68969867, 30954879 ####[facility] [address] [place] [address] Glucose [Mass/Vol] 130 mg/dL Normal 55-199 [facility] Comment on above: Result Comment: If t his glucose result represents a fasting glucose, interpretation should refer to the following reference range: 55-99 mg/dL Performed By: #### 2 267799, 1570114, 9410753, 7446895, 81613251, 14059904 ####[facility] [address] [place] [address] Potassium [Moles/Vol] 4.2 mmol/L Normal 3.5-5.3 [facility] Comment on above: Performed By: #### 2 690869, 0189205, 2440903, 0778444, 00717378, 76743983 ####[facility] [address] [place] [address] Sodium [Moles/Vol] 138 mmol/L Normal 135-145 [facility] Comment on above: Performed By: #### 2 937356, 2707891, 0532828, 0994354, 40403608, 83589376 ####[facility] [address] [place] [address] CBC w/ Auto Diffon 3 Erythrocyte distribution width (RBC) [Ratio] 16.3 % High 10.9-14.2 [facility] Comment on above: Performed By: #### 2 299138, 6720508, 4947725, 5242229, 82465328, 34248870 ####[facility] [address] [place] [address] Hematocrit (Bld) [Volume fraction] 36.5 % Normal 34.0-46.0 [facility] Comment on above: Performed By: #### 2 090029, 2678146, 1051083, 1186019, 82224126, 58710028 ####[facility] [address] [place] [address] Hemoglobin (Bld) [Mass/Vol] 12.1 g/dL Normal 12.0-16.0 [facility] Comment on above: Performed By: #### 2 704782, 9428077, 5765079, 4040932, 87307594, 73964066 ####[facility] [address] [place] [address] MCH (RBC) [Entitic mass] 32.9 pg Normal 27.0-34.0 [facility] Comment on above: Performed By: #### 2 089666, 7340446, 0522115, 8518493, 56478772, 95285834 ####[address] [address] MCHC (RBC) [Mass/Vol] 33.1 g/dL Normal 31.4-36.0 [facility] Comment on above: Performed By: #### 2 818450, 4780779, 8246261, 1823718, 36725841, 75290309 ####[address] [address] MCV (RBC) [Entitic vol] 99.3 fL Normal 80.0-100.[address] [facility] Comment on above: Performed By: #### 2 398455, 1824114, 1001173, 6429556, 33664266, 85766521 ####[facility] [address] [place] [address] Platelet mean volume (Bld) [Entitic vol] 7.3 fL Normal 6.4-10.8 [facility] Comment on above: Performed By: #### 2 461660, 8292438, 2377901, 2816605, 69877843, 74018106 ####[address] [address] Platelets (Bld) [#/Vol] 229.0 E9/L Normal 150. 0-500. 0 [facility] Comment on above: Performed By: #### 2 492556, 8277426, 3184576, 6476496, 13887864, 64924201 ####[facility] [address] [place] [address] RBC (Bld) [#/Vol] 3.7 E12/L Low 4.3-5.9 [facility] Comment on above: Performed By: #### 2 886255, 0380327, 8060961, 7294954, 13066709, 04486399 ####[facility] [address] [place] [address] WBC corrected for nucl RBC Auto (Bld) [#/Vol] 6.6 E9/L Normal 4.0-11.0 [facility] Comment on above: Performed By: #### 2 642796, 8079366, 1417196, 2557650, 75457715, 03248871 ####[facility] [address] [place] [address] CT Pelvis w/o Contraston CT Pelvis w/o Contrast Normal [facility] ED Clinical Summaryon 2022 ED Clinical Summary Normal [facility] ED Note-Physicianon 11-03-19 ED Note-Physician Radiologist has read the x-ray of the sacrum and there is discrepancy. He is reading he has a left pubic rami fracture. The patient has been admitted to the hospital.The hospitalist notified. Normal [facility] Comment on above: Result Comment: Elec tronically Signed By: Alok Cai M.D.\.br\Date and Time Signed: 11/02/22 07:41 EDT ED Note-Physician Normal [facility] Comment on above: Result Comment: Elec tronically Signed By: Kelly Meredith DO\.br\Date and Time Signed: 11/02/22 00:27 EDT ED Patient Education Noteon 11-02-2022 ED Patient Education Note Normal [facility] ED Patient Summaryon 023 ED Patient Summary Normal [facility] ED Traumaon 11-02-2022 ED Trauma [id number]#[id number]:1 27 Normal [facility] FolateOrdered By: ADELE HE TEM on 11-02-2022 Folate [Mass/Vol] 11.4 ng/mL Normal >=6.7 [facility] Comment on above: Performed By: #### 2 938196, 8580546, 462113461, 60728464 ####[facility] [address] [place] [address] Hep Func Panelon 11-02-2022 Albumin [Mass/Vol] 3.5 g/dL Normal 3.3-5.0 [facility] Comment on above: Performed By: #### 2 773051, 7810578, 6285182, 4041103, 65006294, 42373830 ####[facility] [address] [place] [address] Albumin/Globulin (S) [Mass conc ratio] 1.0 Low 1.1-2.2 [facility] Comment on above: Performed By: #### 2 348785, 4776260, 0263225, 6233496, 49886120, 23357925 ####[facility] [address] [place] [address] ALP [Catalytic activity/Vol] 110 Int._Unit/L High 21-98 [facility] Comment on above: Performed By: #### 2 902966, 3914139, 6604275, 4288893, 31019408, 56910396 ####[facility] [address] [place] [address] ALT No additional P-5'-P [Catalytic activity/Vol] 13 Int._Unit/L Normal 6-46 [facility] Comment on above: Performed By: #### 2 233904, 4483648, 8809693, 0308003, 77711248, 52179624 ####[facility] [address] [place] [address] AST [Catalytic activity/Vol] 20 Int._Unit/L Normal 5-43 [facility] Comment on above: Performed By: #### 2 570830, 0686261, 0881846, 6754990, 79768333, 92924879 ####[facility] [address] [place] [address] Bilirubin [Mass/Vol] 0.9 mg/dL Normal 0.0-1.1 [facility] Comment on above: Performed By: #### 2 959363, 0837048, 5543176, 5995379, 16161960, 17986801 ####[facility] [address] [place] [address] Bilirubin.direct [Mass/Vol] 0.2 mg/dL Normal 0.1-0.4 [facility] Comment on above: Performed By: #### 2 570599, 0859223, 4619505, 0782004, 84344662, 32042124 ####[facility] [address] [place] [address] Bilirubin.indirect [Mass or moles/Vol] 0.7 mg/dL Normal 0.1-0.9 [facility] Comment on above: Performed By: #### 2 700330, 0222924, 7574988, 8888045, 05054916, [id number] ####[facility] [address] [place] [address] Globulin (S) [Mass/Vol] 3.4 g/dL Normal 1.4-4.[address] [facility] Comment on above: Performed By: #### 2 033483, 3518270, 8273447, 8183910, 47723815, 23479450 ####[facility] [address] [place] [address] Protein [Mass/Vol] 6.9 g/dL Normal 6.0-7.8 [facility] Comment on above: Performed By: #### 2 632617, 4424966, 9653226, 6105166, 28724373, 05569320 ####[facility] [address] [place] [address] Insurance Correspondence Off iceon 11-02-2022 Insurance Correspondence Office [id number]#[id number]:12 7 Normal [facility] 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 Note - Attila e Manageron 11-02-2022 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 Note - Guest History Clerk Normal [facility] Comment on above: Result Comment: Elec tronically Signed By: Florence Ortega\.br\Date and Time Signed: 11/02/22 14:23 EDT 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 Note - Rafat n 11-02-2022 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 Note - OT Normal [facility] 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 Note - Soc ial Workeron 11-02-2022 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 Note - Health Spa Manager [facility] Monitor Recordon 11-02-2022 Monitor Record [id number]#[id number]:1 27 Normal [facility] Progress Note-Physicianon Progress Note-Physician Normal [facility] Comment on above: Result Comment: Elec tronically Signed By: Gavino Erickson DO\.br\Date and Time Signed: 11/02/22 15:25 EDT Progress Note-Physician Normal [facility] Comment on above: Result Comment: Elec tronically Signed By: Trevor HANKS, Wyatt\.br\Date and Time Signed: 11/02/22 12:22 EDT Reference Laboratory Testing Ordered By: Generated DomainUser on 11-02-2022 Reagin Ab RPR Ql (S) Non-Reactive Invalid Interpretation Code Non Reactive [facility] SendOutsSS Comment on above: Result Comment: Perf ormed at: CB [facility] [address] [id number] PhD Denver Avelar TSH With T4fr ReflexOrdered By: SYSTEM SYSTEM on 11-02-2022 TSH Qn 0.93 m[IU]/L Normal 0.34-5.60 [facility]isol Comment on above: Performed By: #### 2 146706, 5347592, [id number], 12340315 ####[facility] [address] [place] [address] Troponin 0 Hr.on 11-02-2022 Troponin I.cardiac [Mass/Vol] 7.50 pg/mL Low 10.10-27.1 0 [facility] Comment on above: Result Comment: The 95% CI (Confidence Interval) PPV (Positive Predictive Value) for myocardial infarction in females is 38 pg/mL, in males 51 pg/mL. The results should be used in conjunction with clinical conditions of myocardial infarction.(Access High Sensitivity Troponin I Instructions For Use, Gaby Charlotte, November 2017) Performed By: #### 2 205428, 6579831, 4240622, 7910411, 63788562, 17101716 ####[facility] [address] [place] [address] UA With Cult Reflexon 2022 Bacteria LM Ql (Urine sed) TRACE Normal Trace [facility] Comment on above: Order Comment: Urina ry Catheter Insertion triggered Urinalysis With Culture Reflex order by discern. Performed By: #### 1 [id number] ####[address] [address] Bilirubin Ql (U) Negative Normal Negative [facility] Comment on above: Order Comment: Urina ry Catheter Insertion triggered Urinalysis With Culture Reflex order by discern. Performed By: #### 1 5565920 ####[address] [address] Clarity (U) CLEAR Normal Clear [facility] Comment on above: Order Comment: Urina ry Catheter Insertion triggered Urinalysis With Culture Reflex order by discern. Performed By: #### 1 6988563 ####[address] [address] Color (U) YELLOW Normal Yellow [facility] Comment on above: Order Comment: Urina ry Catheter Insertion triggered Urinalysis With Culture Reflex order by discern. Performed By: #### 1 2641880 ####[address] [address] Epithelial cells.squamous LM.HPF (Urine sed) [#/Area] 3-4 Normal 0-2 [facility] Comment on above: Order Comment: Urina ry Catheter Insertion triggered Urinalysis With Culture Reflex order by discern. Performed By: #### 1 1121731 ####[facility] [address] [place] [address] Glucose Test strip (U) [Mass/Vol] Negative Normal Negative [facility] Comment on above: Order Comment: Urina ry Catheter Insertion triggered Urinalysis With Culture Reflex order by discern. Performed By: #### 1 8195584 ####[address] [address] Hemoglobin Ql (U) TRACE Abnormal Negative [facility] Comment on above: Order Comment: Urina ry Catheter Insertion triggered Urinalysis With Culture Reflex order by discern. Performed By: #### 1 0641466 ####[address] [address] Ketones (U) [Mass/Vol] TRACE Abnormal Negative [facility] Comment on above: Order Comment: Urina ry Catheter Insertion triggered Urinalysis With Culture Reflex order by discern. Performed By: #### 1 9652260 ####[address] [address] [place].plasma/[place]. RBC (Bld) [Mass ratio] 4-20 Normal 0-3 [facility] Comment on above: Order Comment: Urina ry Catheter Insertion triggered Urinalysis With Culture Reflex order by discern. Performed By: #### 1 1977930 ####[address] [address] Nitrite Ql (U) Negative Normal Negative [facility] Comment on above: Order Comment: Urina ry Catheter Insertion triggered Urinalysis With Culture Reflex order by discern. Performed By: #### 1 3476223 ####[address] [address] pH (U) 6.0 [pH] Invalid Interpretation Code 5.0-9.0 [facility] Comment on above: Order Comment: Urina ry Catheter Insertion triggered Urinalysis With Culture Reflex order by discern. Performed By: #### 1 6157635 ####[address] [place] [address] Protein (U) [Mass/Vol] TRACE Abnormal Negative [facility] Comment on above: Order Comment: Urina ry Catheter Insertion triggered Urinalysis With Culture Reflex order by discern. Performed By: #### 1 8641330 ####[place] [address] Specific gravity (U) [Rel density] 1.025 Invalid Interpretation Code 1.005-1.03 0 [facility] Comment on above: Order Comment: Urina ry Catheter Insertion triggered Urinalysis With Culture Reflex order by discern. Performed By: #### 1 7734756 ####[place] [address] Type of Urine collection method Catheter Normal [facility] Comment on above: Order Comment: Urina ry Catheter Insertion triggered Urinalysis With Culture Reflex order by discern. Performed By: #### 1 9771289 ####[place] [address] Urobilinogen Qn (U) 1.0 {Tj'U}/dL Normal 0.0-1.0 [facility] Comment on above: Order Comment: Urina ry Catheter Insertion triggered Urinalysis With Culture Reflex order by discern. Performed By: #### 1 6387347 ####[address] [address] WBC Auto Ql (U) Negative Normal Negative [facility] Comment on above: Order Comment: Urina ry Catheter Insertion triggered Urinalysis With Culture Reflex order by discern. Performed By: #### 1 8713971 ####[address] [address] WBC LM.HPF (Urine sed) [#/Area] 0-5 Normal 0-5 [facility] Comment on above: Order Comment: Urina ry Catheter Insertion triggered Urinalysis With Culture Reflex order by discern. Performed By: #### 1 2158880 ####[address] [address] Bilirubin Ql (U) Negative Normal Negative [facility] Comment on above: Performed By: #### 1 8769618 ####[facility] [address] [place] [address] Clarity (U) SL CLOUDY Invalid Interpretation Code [facility] Comment on above: Performed By: #### 1 2103539 ####[facility] [address] [place] [address] Color (U) YELLOW Normal Yellow [facility] Comment on above: Performed By: #### 1 6802031 ####[address] [address] Epithelial cells.squamous LM.HPF (Urine sed) [#/Area] 0-2 Normal 0-2 [facility] Comment on above: Performed By: #### 1 7567223 ####[facility] [address] [place] [address] Glucose Test strip (U) [Mass/Vol] Negative Normal Negative [facility] Comment on above: Performed By: #### 1 2650962 ####[facility] [address] [place] [address] Hemoglobin Ql (U) 3+ Abnormal Negative [facility] Comment on above: Performed By: #### 1 1281233 ####[facility] [address] [place] [address] Ketones (U) [Mass/Vol] TRACE Invalid Interpretation Code Negative [facility] Comment on above: Performed By: #### 1 1731024 ####[facility] [address] [place] [address] [place].plasma/[place]. RBC (Bld) [Mass ratio] 21-30 Abnormal 0-3 [facility] Comment on above: Performed By: #### 1 5576605 ####[facility] [address] [place] [address] Mucus Ql (Urine sed) 1+ Normal [facility] Comment on above: Performed By: #### 1 5155846 ####[facility] [address] [place] [address] Nitrite Ql (U) Negative Normal Negative [facility] Comment on above: Performed By: #### 1 2450131 ####[facility] [address] [place] [address] pH (U) 6.0 [pH] Invalid Interpretation Code 5.0-9.0 [facility] Comment on above: Performed By: #### 1 6418912 ####[facility] [address] [place] [address] Protein (U) [Mass/Vol] 1+ Abnormal Negative Fi [facility] Comment on above: Performed By: #### 1 8970612 ####[facility] [address] [place] [address] Specific gravity (U) [Rel density] 1.025 Invalid Interpretation Code 1.005-1.03 0 [facility] Comment on above: Performed By: #### 1 6049247 ####[address] [address] Type of Urine collection method Clean Catch Normal [facility] Comment on above: Performed By: #### 1 2563137 ####[facility] [address] [place] [address] Urobilinogen Qn (U) 2.0 {Tj'U}/dL Abnormal 0.0-1.0 [facility] Comment on above: Performed By: #### 1 6519184 ####[facility] [address] [place] [address] WBC Auto Ql (U) Negative Normal Negative [facility] Comment on above: Performed By: #### 1 3682302 ####[facility] [address] [place] [address] WBC LM.HPF (Urine sed) [#/Area] 0-5 Normal 0-5 [facility] Comment on above: Performed By: #### 1 [id number] ####[facility] [address] [place] [address] URINALYSISOrdered By: Dianne Villa on 11-02-2022 Bacteria LM Ql (Urine sed) Trace /HPF Normal Trace/HPF [facility] UA Auto SS Bilirubin Ql (U) Negative [...] Interpretation Code Negative [facility] UA Auto SS [place].plasma/[place]. RBC (Bld) [Mass ratio] 4-20 /HPF Normal [...] [facility] UA Auto SS Urobilinogen Qn (U) 1.7321819 {Tj'U}/dL Normal 0.0 - 1.0 EU/dL [facility] UA Auto SS WBC Auto Ql (U) Negative (11/02/22 5:30 PM) Normal Negative [facility] UA Auto SS WBC LM.HPF (Urine sed) [#/Area] 0-5 /HPF Normal 0-5/HPF [facility] UA Auto SS Vit [id number] By: SYSTEM SY STEM on 11-02-2022 Cobalamin (Vitamin B12) [Mass/Vol] 470 pg/mL Normal 50-1500 [facility] Comment on above: Performed By: #### 2 282909, 6753925, [id number], 73325726 ####[facility] [address] [place] [address] XR Chest Single Viewon 11-02 XR Chest Single View Normal Fish er [facility] XR Pelvis 1 or 2 Viewson XR Pelvis 1 or 2 Views Normal Fi boogie [facility] XR Sacrum and Coccyx Min 2 V iewson 11-02-2022 XR Sacrum and Coccyx Min 2 Views Normal [facility] eGFRon 11-02-2022 GFR/1.73 sq M.predicted among non-blacks MDRD (S/P/Bld) [Vol rate/Area] 43 mL/min/1.73 m2 Low >=59 [facility] Comment on above: Order Comment: Order added by Discern Expert. Result Comment: Core Baker aubrey kidney disease could be indicated at eGFR's of less than 60 mL/min/1.73m2. Kidney failure is indicated at less than 15 mL/min/1.73m2. Performed By: #### 2 072963, 7039493, 6539974, 4597059, 79619045, 89471292 ####[facility] [address] [place] [address] CHEMISTRYOrdered By: SYSTEM SYSTEM on 11-01-2022 Albumin [...] 0.0 - 1 .1 mg/dL [facility] Bilirubin.direct [Mass/Vol] 0.2 mg/dL Normal 0.1 - 0.4 mg/dL [facility] Bilirubin.indirect [Mass or moles/Vol] 0.7 mg/dL Normal 0.1 - 0.9 mg/dL [facility] Calcium [Mass/Vol] 9.1 mg/dL Normal 8.9 - 11. 1 mg/dL [facility] Chloride [Moles/Vol] 105 mmol/L Normal 101 - 1 11 mmol/L [facility] CO2 [Moles/Vol] 22 mmol/L Normal 21 - 31 mmol/L [facility] Creatinine [Mass/Vol] 1.3 mg/dL Normal 0.5 - 1.3 mg/dL [facility] GFR/1.73 sq M.predicted among non-blacks MDRD (S/P/Bld) [Vol rate/Area] 43 mL/min/1.73 m2 Low >=59mL/min /1.73 m2 [facility] Chem S Globulin (S) [Mass/Vol] 3.4 g/dL [...] - 20 [facility] Consent for Treatmenton 07- Consent for Treatment [id number]#[id number]:12 7 Normal [facility] HEMATOLOGYOrdered By: SYSTEM SYSTEM on 11-01-2022 Basophils/100 [...] Interpretation Code Negative [facility] UA Auto SS [place].plasma/[place]. RBC (Bld) [Mass ratio] 21-30 /HPF Invalid [...] Desc Clean Catch (11/01/22 11:20 PM) Normal [facility] UA Auto SS Urobilinogen Qn (U) 2.3375638 {Tj'U}/dL Inv alid Interpretation Code 0.0 - 1.0 EU/dL [facility] UA Auto SS WBC Auto Ql (U) Negative (11/01/22 11:20 PM) Normal Negative [facility] UA Auto SS WBC LM.HPF (Urine sed) [#/Area] 0-5 /HPF Normal 0-5/HPF [facility] UA Auto SS ONC - Otheron 10-30-2022 ONC - Other [id number]#[id number]:1 27 Normal [facility] 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 Note - Soc ial Workeron 10-05-2022 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 Note - Health Spa Manager Normal [facility] Oncology Progress Noteon Oncology Progress Note Normal [facility] Consent for Treatmenton Consent for Treatment [id number]:12 7 Normal [facility] CA 27 29on 09-26-2022 Cancer Ag 27-29 Qn 17.7 unit/mL Invalid Interpretation Code 0.0-38.6 [facility] Comment on above: Result Comment: [facility] i-Neumaticosaur Immunochemiluminometric Methodology (ICMA)Values obtained with different assay methods or kits cannot be usedinterchangeably. Results cannot be interpreted as absolute evidenceof the presence or absence of malignant disease.Performed at: [facility] [place], [place] [id number] PhD [place] Avelar Performed By: #### 1 7135515, 1873036, 4666495, 56373832, 7133268 ####[facility] [address] [place] [address] Auto Diffon 09-25-2022 Basophils/100 WBC (Bld) 3.0 % High 0.0-2.0 [facility] Comment on above: Order Comment: Order Added by Discern Expert. Performed By: #### 1 6003297, 2489144, 7690447, 65347070, 3357205 ####[facility] [address] [place] [address] Basophils/Leukocytes Auto (Bld) [Pure # fraction] 0.1 E9/L Normal 0.0-0.2 [facility] Comment on above: Order Comment: Order Added by Discern Expert. Performed By: #### 1 3771116, 0330202, 5418250, 14607739, 7584182 ####[address] [place] [address] Eosinophils/100 WBC (Bld) 3.1 % Normal 0.0-8.0 [facility] Comment on above: Order Comment: Order Added by Faviola Expert. Performed By: #### 1 8944122, 6823686, 7955603, 51383299, 3036432 ####[address] [address] Eosinophils/Leukocytes Auto (Bld) [Pure # fraction] 0.1 E9/L Normal 0.0-0.5 [facility] Comment on above: Order Comment: Order Added by Faviola Expert. Performed By: #### 1 9096922, 8427189, 1002891, 56826382, 5916993 ####[address] [address] Lymphocytes/100 WBC (Bld) 37.1 % Normal 14.0-50.0 [facility] Comment on above: Order Comment: Order Added by Faviola Expert. Performed By: #### 1 6630291, 1636487, 9547748, 85402018, 1034874 ####[address] [place] [address] Lymphocytes/Leukocytes Auto (Bld) [Pure # fraction] 1.3 E9/L Normal 1.0-4.0 [facility] Comment on above: Order Comment: Order Added by Faviola Expert. Performed By: #### 1 7657013, 4318346, 4101911, 50885781, 1033474 ####[facility] [address] [place] [address] Monocytes/100 WBC (Bld) 8.5 % Normal 4.0-14.0 [facility] Comment on above: Order Comment: Order Added by Discern Expert. Performed By: #### 1 3225379, 5109423, 9038789, 65910270, 7002524 ####[address] [place] [address] Monocytes/Leukocytes Auto (Bld) [Pure # fraction] 0.3 E9/L Normal 0.2-1.0 [facility] Comment on above: Order Comment: Order Added by Discern Expert. Performed By: #### 1 2512215, 3707502, 1700780, 85224797, 7960880 ####[address] [address] Neutrophils/100 WBC (Bld) 48.3 % Normal 36.0-75.0 [facility] Comment on above: Order Comment: Order Added by Discern Expert. Performed By: #### 1 3350858, 7131627, 1306598, 70970177, 5740742 ####[address] [address] Neutrophils/Leukocytes Auto (Bld) [Pure # fraction] 1.7 E9/L Low 2.0-7.5 [facility] Comment on above: Order Comment: Order Added by Discern Expert. Performed By: #### 1 3242717, 9881921, 8820610, 05106541, 9272616 ####[facility] [address] [place] [address] CBC w/ Auto Diffon 3 Erythrocyte distribution width (RBC) [Ratio] 16.6 % High 10.9-14.2 [facility] Comment on above: Performed By: #### 1 3767070, 1677981, 6283328, 56543012, 2366562 ####[address] [place] [address] Hematocrit (Bld) [Volume fraction] 29.4 % Low 34.0-46.0 [facility] Comment on above: Performed By: #### 1 1590820, 5674471, 1258636, 48667824, 5031434 ####[facility] [address] [place] [address] Hemoglobin (Bld) [Mass/Vol] 10.0 g/dL Low 12.0-16.0 [facility] Comment on above: Performed By: #### 1 9057862, 5809826, 1183619, 66009678, 0987663 ####[facility] [address] [place] [address] MCH (RBC) [Entitic mass] 34.5 pg High 27.0-34.0 [facility] Comment on above: Performed By: #### 1 7035635, 9913217, 1131806, 93623137, 8367288 ####[place] [address] MCHC (RBC) [Mass/Vol] 34.0 g/dL Normal 31.4-36.0 [facility] Comment on above: Performed By: #### 1 2969469, 0224862, 5013720, 28371580, 8790343 ####[address] [place] [address] MCV (RBC) [Entitic vol] 101.5 fL High 80.0-100.[address] [facility] Comment on above: Performed By: #### 1 6373259, 5278305, 5897640, 88026281, 5787115 ####[facility] [address] [place] [address] Platelet mean volume (Bld) [Entitic vol] 8.0 fL Normal 6.4-10.8 [facility] Comment on above: Performed By: #### 1 5889675, 6436036, 5093197, 85079434, 6011238 ####[address] [place] [address] Platelets (Bld) [#/Vol] 177.0 E9/L Normal 150. 0-500. 0 [facility] Comment on above: Performed By: #### 1 8960712, 5909672, 0416557, 51471828, 8670167 ####[facility] [address] [place] [address] RBC (Bld) [#/Vol] 2.9 E12/L Low 4.3-5.9 [facility] Comment on above: Performed By: #### 1 2503353, 5617831, 4602986, 85841840, 6984412 ####[facility] [address] [place] [address] WBC corrected for nucl RBC Auto (Bld) [#/Vol] 3.4 E9/L Low 4.0-11.0 [facility] Comment on above: Performed By: #### 1 1784834, 6636401, 3106410, 57598882, 4925856 ####[facility] [address] [place] [address] CHEMISTRYOrdered By: SYSTEM SYSTEM on 09-25-2022 Albumin [...] 25 mmol/L Normal 21 - 31 mmol/L [facility] Creatinine [Mass/Vol] 1.1 mg/dL Normal 0.5 - 1.3 mg/dL [facility] GFR/1.73 sq M.predicted among non-blacks MDRD (S/P/Bld) [Vol rate/Area] 53 mL/min/1.73 m2 Low >=59mL/min /1.73 m2 [facility] Chem S Globulin (S) [Mass/Vol] 4.0 g/dL Normal 1.4 - 4.0 gm/dL [facility] Glucose [Mass/Vol] 134 mg/dL Normal 55 - 199 mg/dL [facility] Potassium [Moles/Vol] 3.8 mmol/L Normal 3.5 - 5.3 mmol/L [facility] Protein [Mass/Vol] 7.1 g/dL Normal 6.0 - 7.8 gm/dL FT Remisol Sodium [Moles/Vol] 140 mmol/L Normal 135 - 145 mmol/L FT Remisol Urea nitrogen [Mass/Vol] 24 mg/dL High 5 - 21 mg/dL [facility] Remisol Urea nitrogen/Creatinine [Mass ratio] 22 mg/mg High 10 - 20 FT Remisol CMPon 09-25-2022 Albumin [Mass/Vol] 3.1 g/dL Low 3.3-5.0 [facility] Comment on above: Performed By: #### 1 6355015, 3638808, 4934901, 19892232, 3687284 ####[facility] [address] [place] [address] Albumin/Globulin (S) [Mass conc ratio] 0.8 Low 1.1-2.2 [facility] Comment on above: Performed By: #### 1 8913399, 8371633, 3265656, 40745859, 6714508 ####[facility] [address] [place] [address] ALP [Catalytic activity/Vol] 131 Int._Unit/L High 21-98 [facility] Comment on above: Performed By: #### 1 8916276, 2260806, 1121618, 26059664, 9493423 ####[facility] [address] [place] [address] ALT No additional P-5'-P [Catalytic activity/Vol] 13 Int._Unit/L Normal 6-46 [facility] Comment on above: Performed By: #### 1 0222445, 9587598, 7938990, 26370575, 9571841 ####[facility] [address] [place] [address] Anion gap [Moles/Vol] 5 mmol/L Low 6-16 [facility] Comment on above: Performed By: #### 1 6785688, 3372064, 5882146, 50685794, 1128157 ####[address] [place] [address] AST [Catalytic activity/Vol] 16 Int._Unit/L Normal 5-43 [facility] Comment on above: Performed By: #### 1 1547227, 3849243, 1073756, 25791794, 0447918 ####[facility] [address] [place] [address] Bilirubin [Mass/Vol] 0.5 mg/dL Normal 0.0-1.1 [facility] Comment on above: Performed By: #### 1 2857496, 6852945, 9897237, 52426099, 0638580 ####[facility] [address] [place] [address] Calcium [Mass/Vol] 8.9 mg/dL Normal 8.9-11.1 [facility] Comment on above: Performed By: #### 1 9212268, 2393708, 8834150, 35364317, 2255735 ####[facility] [address] [place] [address] Chloride [Moles/Vol] 114 mmol/L High 101-111 [facility] Comment on above: Performed By: #### 1 1426180, 9209987, 5544661, 50003984, 1470991 ####[facility] [address] [place] [address] CO2 [Moles/Vol] 25 mmol/L Normal 21-31 [facility] Comment on above: Performed By: #### 1 7155375, 4693725, 4675869, 33916591, 3338427 ####[facility] [address] [place] [address] Creatinine [Mass/Vol] 1.1 mg/dL Normal 0.5-1.3 [facility] Comment on above: Performed By: #### 1 0176465, 6341953, 3621244, 86198329, 6266606 ####[facility] [address] [place] [address] Globulin (S) [Mass/Vol] 4.0 g/dL Normal 1.4-4.0 [facility] Comment on above: Performed By: #### 1 4479085, 0312907, 9635504, 29019091, 1766065 ####[facility] [address] [place] [address] Glucose [Mass/Vol] 134 mg/dL Normal 55-199 [facility] Comment on above: Result Comment: If t his glucose result represents a fasting glucose, interpretation should refer to the following reference range: 55-99 mg/dL Performed By: #### 1 4192306, 0189101, 4686886, 72652221, 6269137 ####[facility] [address] [place] [address] Potassium [Moles/Vol] 3.8 mmol/L Normal 3.5-5.3 [facility] Comment on above: Performed By: #### 1 4282796, 7374182, 4133560, 10617467, 9713241 ####[facility] [address] [place] [address] Protein [Mass/Vol] 7.1 g/dL Normal 6.0-7.8 [facility] Comment on above: Performed By: #### 1 2490222, 5367446, 7935759, 23290383, 3086552 ####[facility] [address] [place] [address] Sodium [Moles/Vol] 140 mmol/L Normal 135-145 [facility] Comment on above: Performed By: #### 1 3566349, 2472989, 9137240, 21869022, 6539182 ####[facility] [address] [place] [address] Urea nitrogen [Mass/Vol] 24 mg/dL High 5-21 [facility] Comment on above: Performed By: #### 1 6362828, 1239291, 8315734, 23776630, 4997165 ####[facility] [address] [place] [address] Urea nitrogen/Creatinine [Mass ratio] 22 No Units High 10-20 [facility] Comment on above: Performed By: #### 1 1147526, 4470069, 6252647, 27997708, 1622358 ####[facility] [address] [place] [address] Consent for Treatmenton Consent for Treatment [id number]:12 7 Normal [facility] HEMATOLOGYOrdered By: SYSTEM SYSTEM on 09-25-2022 Basophils/100 [...] ONC - Otheron 09-25-2022 ONC - Other [id number]: 127 Normal [facility] eGFRon 09-25-2022 GFR/1.73 sq M.predicted among non-blacks MDRD (S/P/Bld) [Vol rate/Area] 53 mL/min/1.73 m2 Low >=59 [facility] Comment on above: Order Comment: Order added by Discern Expert. Result Comment: Core Baker aubrey kidney disease could be indicated at eGFR's of less than 60 mL/min/1.73m2. Kidney failure is indicated at less than 15 mL/min/1.73m2. Performed By: #### 1 8367833, 6372923, 3029173, 96751915, 2895511 ####[facility] [address] [place] [address] Ferritinon 09-10-2022 Ferritin [Mass/Vol] 302 ng/mL Normal 11-307 [facility] Comment on above: Result Comment: NORM ALS MEN <30 YRS 16-132 ng/mL MEN >30 YRS 8-338 ng/mL WOMEN (PREMEN) 6-104 ng/mL WOMEN (POSTMEN) 12-210 ng/mL Performed By: #### 2 436689, 3317689, 1264722, 7876516, 0391701, 5771131, 6698948, 14842128, 9684495, 8524214, 62139308 ####[facility] [address] [place] [address] Folateon 09-10-2022 Folate [Mass/Vol] 9.6 ng/mL Normal >=6.7 [facility] Comment on above: Performed By: #### 2 438974, 5955860, 8774208, 5737353, 6765956, 8700372, 3688503, 66866202, 6952974, 4800108, 15455184 ####[facility] [address] [place] [address] Vit B12on 09-10-2022 Cobalamin (Vitamin B12) [Mass/Vol] 203 pg/mL Normal 50-1500 [facility] Comment on above: Performed By: #### 2 734950, 7917492, 0635665, 7769102, 8145092, 0226047, 7408014, 39509065, 2602983, 5440768, 56056796 ####[facility] [address] [place] [address] CA 27 29on 09-09-2022 Cancer Ag - Qn 15.2 unit/mL Invalid Interpretation Code 0.0-38.6 [facility] Comment on above: Result Comment: [facility] Immunochemiluminometric Methodology (ICMA)Values obtained with different assay methods or kits cannot be usedinterchangeably. Results cannot be interpreted as absolute evidenceof the presence or absence of malignant disease.Performed at: [facility] [place], [place] [id number] PhD [place] Avelar Performed By: #### 2 234923, 7788206, 8986883, 0689241, 1443251, 1005659, 6596520, 96887828, 3297156, 3417561, 74455712 ####[facility] [address] [place] [address] Auto Diffon 09-08-2022 Basophils/100 WBC (Bld) 0.4 % Normal 0.0-2.0 [facility] Comment on above: Order Comment: Order Added by Discern Expert. Performed By: #### 2 885654, 1088615, 1574171, 8063181, 2066143, 9508467, 8409786, 74681100, 1662582, 7762792, 27311718 ####[facility] [address] [place] [address] Basophils/Leukocytes Auto (Bld) [Pure # fraction] 0.0 E9/L Normal 0.0-0.2 [facility] Comment on above: Order Comment: Order Added by Discern Expert. Performed By: #### 2 536168, 7796497, 8153923, 9892693, 7247597, 0042827, 5516329, 18841116, 8854256, 3565545, 07024352 ####[facility] [address] [place] [address] Eosinophils/100 WBC (Bld) 1.4 % Normal 0.0-8.0 [facility] Comment on above: Order Comment: Order Added by Discern Expert. Performed By: #### 2 044438, 0641429, 4455867, 8238450, 1767198, 7757830, 2282854, 30988924, 7156986, 4920778, 12546923 ####[facility] [address] [place] [address] Eosinophils/Leukocytes Auto (Bld) [Pure # fraction] 0.1 E9/L Normal 0.0-0.5 [facility] Comment on above: Order Comment: Order Added by Discern Expert. Performed By: #### 2 883123, 2963357, 2774273, 8767494, 1156013, 7615716, 5411654, 05549791, 9415400, 3544714, 87196659 ####[address] [place] [address] Lymphocytes/100 WBC (Bld) 15.3 % Normal 14.0-50.0 [facility] Comment on above: Order Comment: Order Added by Discern Expert. Performed By: #### 2 790521, 6601323, 0161021, 7910853, 0729190, 5798752, 7682718, 38931555, 2342388, 4907399, 03866760 ####[address] [place] [address] Lymphocytes/Leukocytes Auto (Bld) [Pure # fraction] 0.8 E9/L Low 1.0-4.0 [facility] Comment on above: Order Comment: Order Added by Discern Expert. Performed By: #### 2 247953, 0917047, 1334386, 2672522, 5692972, 4479103, 8668489, 40939124, 9181129, 5651787, 90416841 ####[facility] [address] [place] [address] Monocytes/100 WBC (Bld) 2.8 % Low 4.0-14.0 [facility] Comment on above: Order Comment: Order Added by Discern Expert. Performed By: #### 2 073325, 5712002, 6581681, 5997347, 8784881, 4834044, 9449818, 49757248, 3548299, 5537510, 77367412 ####[address] [place] [address] Monocytes/Leukocytes Auto (Bld) [Pure # fraction] 0.1 E9/L Low 0.2-1.0 [facility] Comment on above: Order Comment: Order Added by Discern Expert. Performed By: #### 2 218332, 0844672, 9557311, 5171784, 5964986, 2520622, 3087745, 65150678, 5268170, 1956538, 23983311 ####[address] [address] Neutrophils/100 WBC (Bld) 80.1 % High 36.0-75.0 [facility] Comment on above: Order Comment: Order Added by Discern Expert. Performed By: #### 2 536350, 7339912, 2407082, 9449197, 3274267, 8263465, 8874596, 60849095, 2322975, 4811092, 22323216 ####[address] [address] Neutrophils/Leukocytes Auto (Bld) [Pure # fraction] 4.2 E9/L Normal 2.0-7.5 [facility] Comment on above: Order Comment: Order Added by Discern Expert. Performed By: #### 2 354661, 0861575, 5249059, 2612573, 5487032, 2316082, 0238522, 50628175, 1013600, 5326507, 66871343 ####[address] [place] [address] CBC w/ Auto Diffon 3 Erythrocyte distribution width (RBC) [Ratio] 15.4 % High 10.9-14.2 [facility] Comment on above: Performed By: #### 2 785460, 5383200, 7283137, 0678517, 8887519, 3878973, 1206321, 69306714, 4338683, 5605212, 01860342 ####[address] [place] [address] Hematocrit (Bld) [Volume fraction] 30.9 % Low 34.0-46.0 [facility] Comment on above: Performed By: #### 2 938908, 2377601, 7856986, 0857799, 6029182, 6690554, 6032402, 95733694, 0009238, 5369737, 79910445 ####[facility] [address] [place] [address] Hemoglobin (Bld) [Mass/Vol] 10.3 g/dL Low 12.0-16.0 [facility] Comment on above: Performed By: #### 2 399346, 8665809, 5267331, 0190746, 9812309, 6241573, 9528532, 46909717, 7770542, 4196371, 78676462 ####[facility] [address] [place] [address] MCH (RBC) [Entitic mass] 33.7 pg Normal 27.0-34.0 [facility] Comment on above: Performed By: #### 2 907611, 6608339, 0594455, 3350715, 2130579, 1262946, 7900002, 20523273, 3437746, 1258945, 03610622 ####[facility] [address] [place] [address] MCHC (RBC) [Mass/Vol] 33.1 g/dL Normal 31.4-36.0 [facility] Comment on above: Performed By: #### 2 292969, 2885997, 7842799, 9256763, 3887390, 7635295, 2465408, 35601013, 9402719, 6934540, 48113628 ####[facility] [address] [place] [address] MCV (RBC) [Entitic vol] 101.8 fL High 80.0-100.[address] [facility] Comment on above: Performed By: #### 2 559415, 5923229, 2914882, 6116134, 7171865, 6303136, 3442516, 10301167, 8128791, 0099667, 50432489 ####[facility] [address] [place] [address] Platelet mean volume (Bld) [Entitic vol] 7.2 fL Normal 6.4-10.8 [facility] Comment on above: Performed By: #### 2 695420, 9405573, 1915581, 6305456, 7267965, 7544882, 7438319, 93127937, 9394709, 8761087, 83427026 ####[facility] [address] [place] [address] Platelets (Bld) [#/Vol] 307.0 E9/L Normal 150. 0-500. 0 [facility] Comment on above: Performed By: #### 2 141312, 9693184, 4267117, 0480820, 6376874, 1847818, 8958859, 43233137, 0644379, 9103330, 75177002 ####[address] [place] [address] RBC (Bld) [#/Vol] 3.0 E12/L Low 4.3-5.9 [facility] Comment on above: Performed By: #### 2 900975, 6962890, 0314822, 7023789, 0931064, 6461907, 5160962, 28929779, 9887021, 9720902, 30243919 ####[address] [place] [address] WBC corrected for nucl RBC Auto (Bld) [#/Vol] 5.3 E9/L Normal 4.0-11.0 [facility] Comment on above: Performed By: #### 2 310561, 9917470, 1583484, 3110205, 4512187, 7334230, 5873727, 12824815, 6650156, 7516747, 30054422 ####[facility] [address] [place] [address] CMPon 09-08-2022 Albumin [Mass/Vol] 3.1 g/dL Low 3.3-5.0 [facility] Comment on above: Performed By: #### 2 084822, 1910416, 7761057, 6836618, 6696408, 8311223, 2153926, 02026427, 6074421, 4569416, 38772143 ####[facility] [address] [place] [address] Albumin/Globulin (S) [Mass conc ratio] 0.8 Low 1.1-2.2 [facility] Comment on above: Performed By: #### 2 831192, 7079544, 3223814, 0092283, 7558488, 2609317, 2532235, 53195560, 7450551, 3544269, 51477277 ####[address] [place] [address] ALP [Catalytic activity/Vol] 156 Int._Unit/L High 21-98 [facility] Comment on above: Performed By: #### 2 462146, 9744985, 9601460, 5499758, 8188107, 7067725, 9804203, 14538286, 6490829, 5588381, 24825764 ####[address] [address] ALT No additional P-5'-P [Catalytic activity/Vol] 16 Int._Unit/L Normal 6-46 [facility] Comment on above: Performed By: #### 2 214911, 7070806, 4030635, 0248383, 1069596, 4514925, 7964582, 31271793, 4823822, 9822340, 16761263 ####[address] [place] [address] Anion gap [Moles/Vol] 11 mmol/L Normal 6-16 [facility] Comment on above: Performed By: #### 2 803510, 1179529, 2873177, 4793733, 8359295, 9662098, 4663556, 28054879, 8606851, 1204525, 10248121 ####[address] [place] [address] AST [Catalytic activity/Vol] 17 Int._Unit/L Normal 5-43 [facility] Comment on above: Performed By: #### 2 449741, 3281368, 2531958, 6899754, 7797548, 0613594, 7310175, 08998946, 4875566, 9024708, 24539629 ####[facility] [address] [place] [address] Bilirubin [Mass/Vol] 0.8 mg/dL Normal 0.0-1.1 [facility] Comment on above: Performed By: #### 2 376621, 5067191, 1368354, 8539676, 0186113, 7395195, 4501481, 94555278, 9483163, 3213086, 64446004 ####[facility] [address] [place] [address] Calcium [Mass/Vol] 8.7 mg/dL Low 8.9-11.1 [facility] Comment on above: Performed By: #### 2 877589, 2011411, 5450620, 4785873, 1503532, 9270146, 1939510, 42515451, 3366638, 5078593, 50943907 ####[facility] [address] [place] [address] Chloride [Moles/Vol] 109 mmol/L Normal 101-111 [facility] Comment on above: Performed By: #### 2 120366, 2976126, 7229238, 7479132, 3233590, 7173152, 9354896, 00956812, 0853298, 5121647, 36940524 ####[facility] [address] [place] [address] CO2 [Moles/Vol] 23 mmol/L Normal 21-31 [facility] Comment on above: Performed By: #### 2 918485, 5377439, 0789227, 2212735, 6242737, 3074608, 3088131, 74478299, 7017930, 9407222, 56525324 ####[facility] [address] [place] [address] Creatinine [Mass/Vol] 1.3 mg/dL Normal 0.5-1.3 [facility] Comment on above: Performed By: #### 2 290473, 8674511, 0559821, 8517715, 6612484, 0024388, 9810368, 08611265, 6459451, 5839971, 73096312 ####[facility] [address] [place] [address] Globulin (S) [Mass/Vol] 4.0 g/dL Normal 1.4-4.[address] [facility] Comment on above: Performed By: #### 2 414861, 0975385, 7547542, 4389562, 3730206, 1481199, 5703659, 74715766, 5507979, 4437963, 52406677 ####[facility] [address] [place] [address] Glucose [Mass/Vol] 133 mg/dL Normal 55-199 [facility] Comment on above: Result Comment: If t his glucose result represents a fasting glucose, interpretation should refer to the following reference range: 55-99 mg/dL Performed By: #### 2 493468, 1234331, 9571042, 0924035, 7756599, 6908715, 8884593, 48595971, 6139654, 6230113, 21635381 ####[facility] [address] [place] [address] Potassium [Moles/Vol] 4.2 mmol/L Normal 3.5-5.3 [facility] Comment on above: Performed By: #### 2 739558, 8196071, 3838309, 1682321, 7730931, 9533280, 5192814, 04590828, 4635074, 0761230, 56287299 ####[facility] [address] [place] [address] Protein [Mass/Vol] 7.1 g/dL Normal 6.0-7.8 [facility] Comment on above: Performed By: #### 2 399144, 1283684, 8004113, 1611018, 9774328, 2878885, 8672031, 86884887, 2406353, 3564847, 10071916 ####[facility] [address] [place] [address] Sodium [Moles/Vol] 139 mmol/L Normal 135-145 [facility] Comment on above: Performed By: #### 2 914085, 5321115, 8239942, 1034322, 3432655, 5642216, 4827029, 75220781, 6366382, 7359292, 87825402 ####[facility] [address] [place] [address] Urea nitrogen [Mass/Vol] 28 mg/dL High 5- [facility] Comment on above: Performed By: #### 2 008456, 7122268, 6573286, 3703311, 9080680, 2586663, 8743171, 72856714, 5315078, 6710083, 32533741 ####[facility] [address] [place] [address] Urea nitrogen/Creatinine [Mass ratio] 22 No Units High 10- [facility] Comment on above: Performed By: #### 2 194017, 9834501, 0525913, 6715751, 7010558, 7325371, 4088477, 59075533, 9102997, 2696696, 60563279 ####[facility] [address] [place] [address] Consent for Treatmenton 08-21 Consent for Treatment [id number]:12 7 Normal [facility] Consent for Treatment [id number]:12 7 [facility] Discharge Instructionson Discharge Instructions [id number]:1 27 Normal [facility] ED Clinical Summaryon 2022 ED Clinical Summary Normal [facility] ED Note-Physicianon 09-09-19 ED Note-Physician Normal [facility] Comment on above: Result Comment: Elec tronically Signed By: Mendez Lucero PA-C\.br\Date and Time Signed: 09/08/22 16:09 EDT\.br\Electronically Co-Signed By: Pedro Nava DO.br\Date and Time Co-Signed: 09/08/22 16:54 EDT ED Patient Education Noteon 09-08-2022 ED Patient Education Note Normal [facility] ED Patient Summaryon 023 ED Patient Summary Normal [facility] Ironon 09-08-2022 Iron [Mass/Vol] 48 microgram/dL Normal 35-153 [facility] Comment on above: Performed By: #### 2 655206, 4936352, 5775596, 2722548, 6080976, 9653836, 7169717, 78772683, 3347034, 5907199, 37918939 ####[facility] [address] [place] [address] Iron Saturationon 09-08-2022 Iron binding capacity [Mass/Vol] 239 microgram/dL Low 250-400 [facility] Comment on above: Performed By: #### 2 434137, 7673436, 9195997, 4257015, 8116804, 3584933, 3308518, 82854431, 2321543, 8279837, 92240450 ####[facility] [address] [place] [address] Iron saturation [Mass fraction] 20 % Normal 20-50 [facility] Comment on above: Performed By: #### 2 120492, 0378122, 0760008, 2151025, 3116251, 2932707, 7250330, 85020955, 3131838, 3657565, 74686071 ####[facility] [facility] [address] [place] [address] Transferrinon 09-08-2022 Transferrin [Mass/Vol] 170 mg/dL Low 200-370 [facility] Comment on above: Performed By: #### 2 526533, 1709347, 1827306, 7125480, 2305509, 9445891, 0029344, 52005563, 9902423, 2336685, 53221683 ####[facility] [address] [place] [address] eGFRon 09-08-2022 GFR/1.73 sq M.predicted among non-blacks MDRD (S/P/Bld) [Vol rate/Area] 43 mL/min/1.73 m2 Low >=59 [facility] Comment on above: Order Comment: Order added by Discern Expert. Result Comment: Core Baker aubrey kidney disease could be indicated at eGFR's of less than 60 mL/min/1.73m2. Kidney failure is indicated at less than 15 mL/min/1.73m2. Performed By: #### 2 626366, 3985865, 0469556, 6207896, 6012122, 8809829, 5924606, 24075395, 1818043, 5440843, 36110852 ####[facility] [address] [place] [address] Coding Summary.on 08-04-2022 Coding Summary. Normal [facility] Coding Summary.on 08-02-2022 Coding Summary. Normal [facility] CA 27 29on 08-01-2022 Cancer Ag 27-29 Qn 13.4 unit/mL Invalid Interpretation Code 0.0-38.6 [facility] Comment on above: Result Comment: [facility] i-Ne[employer]osaur Immunochemiluminometric Methodology (ICMA)Values obtained with different assay methods or kits cannot be usedinterchangeably. Results cannot be interpreted as absolute evidenceof the presence or absence of malignant disease.Performed at: [facility] [place], [place] [id number] PhD Denver Avelar Performed By: #### 2 454628, 3130628, 9131390, 33458390, 98436836 ####[facility] [address] [place] [address] Consent for Treatmenton 07-21 Consent for Treatment [id number]#[id number]:12 7 Normal [facility] Oncology Noteon 08-01-2022 Oncology Note Normal [facility] Comment on above: Result Comment: Elec tronically Signed By: Jane FARMER, Yolande Grande.johnnie\Date and Time Signed: 08/01/22 15:08 EDT Oncology Progress Noteon Oncology Progress Note Normal Fi [facility] Auto Diffon 07-30-2022 Basophils/100 WBC (Bld) 2.7 % High 0.0-2.[address] [facility] Comment on above: Order Comment: Order Added by Discern Expert. Performed By: #### 2 446648, 9788902, 6690207, 98128093, 40782730 ####[facility] [address] [place] [address] Basophils/Leukocytes Auto (Bld) [Pure # fraction] 0.1 E9/L Normal 0.0-0.2 [facility] Comment on above: Order Comment: Order Added by Discern Expert. Performed By: #### 2 734124, 5461584, 2019547, 24184035, 34803600 ####[facility] [address] [place] [address] Eosinophils/100 WBC (Bld) 3.5 % Normal 0.0-8.0 [facility] Comment on above: Order Comment: Order Added by Discern Expert. Performed By: #### 2 299900, 4282457, 0299991, 92681721, 51936459 ####[facility] [address] [place] [address] Eosinophils/Leukocytes Auto (Bld) [Pure # fraction] 0.1 E9/L Normal 0.0-0.5 [facility] Comment on above: Order Comment: Order Added by Discern Expert. Performed By: #### 2 861927, 9832917, 4101085, 06522783, 24980392 ####[facility] [address] [place] [address] Lymphocytes/100 WBC (Bld) 22.7 % Normal 14.0-50.0 [facility] Comment on above: Order Comment: Order Added by Discern Expert. Performed By: #### 2 517050, 4006251, 0292801, 81301570, 92321337 ####[address] [place] [address] Lymphocytes/Leukocytes Auto (Bld) [Pure # fraction] 0.8 E9/L Low 1.0-4.0 [facility] Comment on above: Order Comment: Order Added by Faviola Expert. Performed By: #### 2 382320, 7234082, 8174436, 95971101, 28921177 ####[address] [place] [address] Monocytes/100 WBC (Bld) 3.2 % Low 4.0-14.0 [facility] Comment on above: Order Comment: Order Added by Faviola Expert. Performed By: #### 2 555989, 0111221, 4234768, 90662315, 65488458 ####[address] [address] Monocytes/Leukocytes Auto (Bld) [Pure # fraction] 0.1 E9/L Low 0.2-1.0 [facility] Comment on above: Order Comment: Order Added by Faviola Expert. Performed By: #### 2 770149, 7931681, 7845240, 09657044, 72937873 ####[address] [place] [address] Neutrophils/100 WBC (Bld) 67.9 % Normal 36.0-75.0 [facility] Comment on above: Order Comment: Order Added by Faviola Expert. Performed By: #### 2 477593, 3402361, 4177164, 82828673, 26499390 ####[address] [place] [address] Neutrophils/Leukocytes Auto (Bld) [Pure # fraction] 2.5 E9/L Normal 2.0-7.5 [facility] Comment on above: Order Comment: Order Added by Faviola Expert. Performed By: #### 2 238412, 6221006, 8907992, 96364800, 93953131 ####[address] [place] [address] CBC w/ Auto Diffon 3 Erythrocyte distribution width (RBC) [Ratio] 15.9 % High 10.9-14.2 [facility] Comment on above: Performed By: #### 2 639139, 2160306, 1273770, 57638388, 06924054 ####[address] [place] [address] Hematocrit (Bld) [Volume fraction] 32.4 % Low 34.0-46.0 [facility] Comment on above: Performed By: #### 2 803429, 3724610, 6216669, 84669568, 93229934 ####[address] [address] Hemoglobin (Bld) [Mass/Vol] 10.5 g/dL Low 12.0-16.0 [facility] Comment on above: Performed By: #### 2 707560, 3229234, 7350648, 25608675, 26812155 ####[address] [address] MCH (RBC) [Entitic mass] 33.6 pg Normal 27.0-34.0 [facility] Comment on above: Performed By: #### 2 174367, 3284195, 0538107, 54190742, 43531578 ####[address] [address] MCHC (RBC) [Mass/Vol] 32.5 g/dL Normal 31.4-36.0 [facility] Comment on above: Performed By: #### 2 659238, 8388138, 0278713, 48026901, 25393371 ####[address] [address] MCV (RBC) [Entitic vol] 103.2 fL High 80.0-100.[address] [facility] Comment on above: Performed By: #### 2 777656, 2875461, 3400280, 75410969, 97627658 ####[facility] [address] [place] [address] Platelet mean volume (Bld) [Entitic vol] 7.4 fL Normal 6.4-10.8 [facility] Comment on above: Performed By: #### 2 410600, 8816532, 3213462, 04862213, 71765907 ####[address] [place] [address] Platelets (Bld) [#/Vol] 142.0 E9/L Low 150. 0-500. 0 [facility] Comment on above: Performed By: #### 2 702716, 2598075, 4242767, 15318366, 11137313 ####[address] [place] [address] RBC (Bld) [#/Vol] 3.1 E12/L Low 4.3-5.9 [facility] Comment on above: Performed By: #### 2 148891, 7939338, 9781283, 10871004, 18103188 ####[facility] [address] [place] [address] WBC corrected for nucl RBC Auto (Bld) [#/Vol] 3.7 E9/L Low 4.0-11.0 [facility] Comment on above: Performed By: #### 2 438024, 3940017, 1524856, 94759848, 47224526 ####[address] [place] [address] CHEMISTRYOrdered By: SYSTEM SYSTEM on 07-30-2022 Albumin [...] 49 mL/min/1.73 m2 Low >=59mL/min /1.73 m2 [facility] Chem S GFR/1.73 sq M.predicted among non-blacks MDRD (S/P/Bld) [Vol rate/Area] 40 mL/min/1.73 m2 Low >=59mL/min /1.73 m2 [facility] Chem S Globulin (S) [Mass/Vol] 3.2 g/dL Normal 1.4 - 4.0 gm/dL FT [facility] Glucose [Mass/Vol] 147 mg/dL Normal 55 - 199 mg/dL [facility] Potassium [Moles/Vol] 4.0 mmol/L Normal 3.5 - 5.3 mmol/L [facility] Protein [Mass/Vol] 6.5 g/dL Normal 6.0 - 7.8 gm/dL [facility] Remisol Sodium [Moles/Vol] 136 mmol/L Normal 135 - 145 mmol/L [facility] Remisol Urea nitrogen [Mass/Vol] 33 mg/dL High 5 - 21 mg/dL [facility] Urea nitrogen/Creatinine [Mass ratio] 25 mg/mg High 10 - 20 [facility] Remisol CMPon 07-30-2022 Albumin [Mass/Vol] 3.3 g/dL Normal 3.3-5.0 [facility] Comment on above: Performed By: #### 2 726354, 9258586, 6431281, 55416500, 81875949 ####[facility] [address] [place] [address] Albumin/Globulin (S) [Mass conc ratio] 1.0 Low 1.1-2.2 [facility] Comment on above: Performed By: #### 2 435300, 7668879, 4591038, 16151207, 48319806 ####[facility] [address] [place] [address] ALP [Catalytic activity/Vol] 121 Int._Unit/L High 21-98 [facility] Comment on above: Performed By: #### 2 057655, 3860491, 5754009, 71144167, 92949952 ####[facility] [address] [place] [address] ALT No additional P-5'-P [Catalytic activity/Vol] 15 Int._Unit/L Normal 6-46 [facility] Comment on above: Performed By: #### 2 091817, 5327899, 8141484, 27664114, 88158947 ####[facility] [address] [place] [address] Anion gap [Moles/Vol] 11 mmol/L Normal 6-16 [facility] Comment on above: Performed By: #### 2 581850, 8861207, 7701198, 76254936, 26546539 ####[facility] [address] [place] [address] AST [Catalytic activity/Vol] 15 Int._Unit/L Normal 5-43 [facility] Comment on above: Performed By: #### 2 958150, 8594384, 2669589, 78524630, 49228609 ####[facility] [address] [place] [address] Bilirubin [Mass/Vol] 0.9 mg/dL Normal 0.0-1.1 [facility] Comment on above: Performed By: #### 2 577945, 8550487, 8838320, 68998861, 93638789 ####[facility] [address] [place] [address] Calcium [Mass/Vol] 8.5 mg/dL Low 8.9-11.1 [facility] Comment on above: Performed By: #### 2 309910, 2738603, 0475041, 97604118, 74739074 ####[facility] [address] [place] [address] Chloride [Moles/Vol] 107 mmol/L Normal 101-111 [facility] Comment on above: Performed By: #### 2 655924, 0781792, 1795771, 86507990, 23771623 ####[facility] [address] [place] [address] CO2 [Moles/Vol] 22 mmol/L Normal 21-31 [facility] Comment on above: Performed By: #### 2 474176, 2187475, 2632434, 48182527, 68786550 ####[facility] [address] [place] [address] Creatinine [Mass/Vol] 1.3 mg/dL Normal 0.5-1.3 [facility] Comment on above: Performed By: #### 2 358139, 5552213, 1278565, 41955615, 74911204 ####[facility] [address] [place] [address] Globulin (S) [Mass/Vol] 3.2 g/dL Normal 1.4-4.0 [facility] Comment on above: Performed By: #### 2 356684, 1780573, 6511616, 93155213, 22061207 ####[facility] [address] [place] [address] Glucose [Mass/Vol] 147 mg/dL Normal 55-199 [facility] Comment on above: Result Comment: If t his glucose result represents a fasting glucose, interpretation should refer to the following reference range: 55-99 mg/dL Performed By: #### 2 818675, 5955298, 8767583, 56705184, 04736638 ####[facility] [address] [place] [address] Potassium [Moles/Vol] 4.0 mmol/L Normal 3.5-5.3 [facility] Comment on above: Performed By: #### 2 328002, 1532215, 8911714, 59636111, 88554942 ####[facility] [address] [place] [address] Protein [Mass/Vol] 6.5 g/dL Normal 6.0-7.8 [facility] Comment on above: Performed By: #### 2 669686, 2347055, 2606212, 91811333, 11850582 ####[facility] [address] [place] [address] Sodium [Moles/Vol] 136 mmol/L Normal 135-145 [facility] Comment on above: Performed By: #### 2 051820, 3622245, 8418884, 90571874, 02991572 ####[facility] [address] [place] [address] Urea nitrogen [Mass/Vol] 33 mg/dL High 5-21 [facility] Comment on above: Performed By: #### 2 640909, 5260739, 4276663, 26517420, 68504291 ####[facility] [address] [place] [address] Urea nitrogen/Creatinine [Mass ratio] 25 No Units High 10-20 [facility] Comment on above: Performed By: #### 2 496901, 5618110, 6077524, 50430295, 96357836 ####[facility] [address] [place] [address] Consent for Treatmenton 07-21 Consent for Treatment [id number]:12 7 Normal [facility] HEMATOLOGYOrdered By: SYSTEM SYSTEM on 07-30-2022 Basophils/100 [...] E9/L Low 150. 0 - 500.0 E9/L [facility] HemeAutoSS RBC (Bld) [#/Vol] 3.1 E12/L Low 4.3 - 5.9 E12/L [facility] HemeAutoSS WBC corrected for nucl RBC Auto (Bld) [#/Vol] 3.7 E9/L Low 4.0 - 11.0 E9/L [facility] HemeAutoSS eGFRon 07-30-2022 GFR/1.73 sq M.predicted among blacks MDRD (S/P/Bld) [Vol rate/Area] 49 mL/min/1.73 m2 Low >=59 [facility] Comment on above: Order Comment: Order added by Discern Expert. Result Comment: eGFR is race adjusted. AA=. Performed By: #### 2 757588, 4309591, 5902586, 42425478, 91799815 ####[facility] [address] [place] [address] GFR/1.73 sq M.predicted among non-blacks MDRD (S/P/Bld) [Vol rate/Area] 40 mL/min/1.73 m2 Low >=59 [facility] Comment on above: Order Comment: Order added by Discern Expert. Result Comment: Core Baker aubrey kidney disease could be indicated at eGFR's of less than 60 mL/min/1.73m2. Kidney failure is indicated at less than 15 mL/min/1.73m2. Performed By: #### 2 583658, 3180097, 7501558, 91354380, 86309254 ####[facility] [address] [place] [address] Coding Summary.on 07-27-2022 Coding Summary. Normal [facility] NM PET w/ CT Scan Skull Base to Midthighon 07-26-2022 NM PET w/ CT Scan Skull Base to Midthigh Normal [facility] RAD - MISCon 07-26-2022 RAD - MISC [id number]#[id number]:1 27 Normal [facility] Consent for Treatmenton Consent for Treatment [id number]#1.00CD:12 7 Normal [facility] Physician Orderon 07-25-2022 Physician Order [id number]#1.00CD:12 7 Normal [facility] Coding Summary.on 07-13-2022 Coding Summary. Normal [facility] CA 27 29on 07-10-2022 Cancer Ag 27- Qn 14.4 unit/mL Invalid Interpretation Code 0.0-38.6 [facility] Comment on above: Result Comment: [employer] Immunochemiluminometric Methodology (ICMA)Values obtained with different assay methods or kits cannot be usedinterchangeably. Results cannot be interpreted as absolute evidenceof the presence or absence of malignant disease.Performed at: [address] [id number] PhD [place] Avelar Performed By: #### 1 4268280, 3276639, 0714268, 53014211, 2429752 ####[facility] [address] [place] [address] Auto Diffon 07-09-2022 Basophils/100 WBC (Bld) 2.7 % High 0.0-2.[address] [facility] Comment on above: Order Comment: Order Added by Discern Expert. Performed By: #### 1 4089325, 4693921, 9036352, 01255586, 2735103 ####[facility] [address] [place] [address] Basophils/Leukocytes Auto (Bld) [Pure # fraction] 0.1 E9/L Normal 0.0-0.2 [facility] Comment on above: Order Comment: Order Added by Discern Expert. Performed By: #### 1 1381198, 0846261, 0972543, 72708324, 2287993 ####[facility] [address] [place] [address] Eosinophils/100 WBC (Bld) 1.9 % Normal 0.0-8.0 [facility] Comment on above: Order Comment: Order Added by Discern Expert. Performed By: #### 1 5509733, 9365675, 1498938, 54885130, 5510248 ####[facility] [address] [place] [address] Eosinophils/Leukocytes Auto (Bld) [Pure # fraction] 0.1 E9/L Normal 0.0-0.5 [facility] Comment on above: Order Comment: Order Added by Discern Expert. Performed By: #### 1 5336797, 4553017, 7146884, 61657442, 7016026 ####[facility] [address] [place] [address] Lymphocytes/100 WBC (Bld) 31.4 % Normal 14.0-50.0 [facility] Comment on above: Order Comment: Order Added by Faviola Expert. Performed By: #### 1 9978442, 7696535, 7742161, 27234675, 0940975 ####[address] [address] Lymphocytes/Leukocytes Auto (Bld) [Pure # fraction] 1.3 E9/L Normal 1.0-4.0 [facility] Comment on above: Order Comment: Order Added by Faviola Expert. Performed By: #### 1 1740106, 2005159, 0395244, 54364089, 9864200 ####[address] [place] [address] Monocytes/100 WBC (Bld) 5.5 % Normal 4.0-14.0 [facility] Comment on above: Order Comment: Order Added by Faviola Expert. Performed By: #### 1 7526447, 9606496, 0265083, 90398089, 3703595 ####[address] [place] [address] Monocytes/Leukocytes Auto (Bld) [Pure # fraction] 0.2 E9/L Normal 0.2-1.0 [facility] Comment on above: Order Comment: Order Added by Faviola Expert. Performed By: #### 1 0267682, 6274944, 5051070, 21962755, 4774367 ####[facility] [address] [place] [address] Neutrophils/100 WBC (Bld) 58.5 % Normal 36.0-75.0 [facility] Comment on above: Order Comment: Order Added by Discern Expert. Performed By: #### 1 7648201, 1438814, 8721935, 20164390, 4137207 ####[address] [place] [address] Neutrophils/Leukocytes Auto (Bld) [Pure # fraction] 2.5 E9/L Normal 2.0-7.5 [facility] Comment on above: Order Comment: Order Added by Discern Expert. Performed By: #### 1 4511702, 1110519, 6318849, 30846765, 7037371 ####[address] [place] [address] CBC w/ Auto Diffon 3 Erythrocyte distribution width (RBC) [Ratio] 17.1 % High 10.9-14.2 [facility] Comment on above: Performed By: #### 1 7588478, 8156501, 5382967, 45470823, 0651670 ####[address] [place] [address] Hematocrit (Bld) [Volume fraction] 36.3 % Normal 34.0-46.0 [facility] Comment on above: Performed By: #### 1 1549485, 1019997, 2136480, 04258944, 4806963 ####[address] [place] [address] Hemoglobin (Bld) [Mass/Vol] 11.9 g/dL Low 12.0-16.0 [facility] Comment on above: Performed By: #### 1 6798646, 3910878, 9448582, 35616341, 8379509 ####[address] [place] [address] MCH (RBC) [Entitic mass] 33.4 pg Normal 27.0-34.0 [facility] Comment on above: Performed By: #### 1 4477074, 4165674, 1140769, 65141742, 9330797 ####[facility] [address] [place] [address] MCHC (RBC) [Mass/Vol] 32.9 g/dL Normal 31.4-36.0 [facility] Comment on above: Performed By: #### 1 6341065, 8910100, 4787222, 83321509, 9450290 ####[address] [place] [address] MCV (RBC) [Entitic vol] 101.5 fL High 80.0-100.[address] [facility] Comment on above: Performed By: #### 1 6861176, 4060766, 7495911, 16134995, 9764469 ####[place] [address] Platelet mean volume (Bld) [Entitic vol] 7.3 fL Normal 6.4-10.8 [facility] Comment on above: Performed By: #### 1 2407111, 6859816, 2285787, 55518617, 8374995 ####[place] [address] Platelets (Bld) [#/Vol] 205.0 E9/L Normal 150. 0-500. 0 [facility] Comment on above: Performed By: #### 1 0486429, 9313152, 8167439, 09802890, 9417888 ####[address] [place] [address] RBC (Bld) [#/Vol] 3.6 E12/L Low 4.3-5.9 [facility] Comment on above: Performed By: #### 1 6884079, 5502566, 3567790, 32036452, 4925118 ####[address] [place] [address] WBC corrected for nucl RBC Auto (Bld) [#/Vol] 4.2 E9/L Normal 4.0-11.0 [facility] Comment on above: Performed By: #### 1 5883440, 2058786, 6292445, 67593959, 4933895 ####[facility] [address] [place] [address] CHEMISTRYOrdered By: SYSTEM SYSTEM on 07-09-2022 Albumin [...] 3.4 g/dL Normal 1.4 - 4.0 gm/dL [facility] Remisol Glucose [Mass/Vol] 119 mg/dL Normal 55 - 199 mg/dL FT Remisol Potassium [Moles/Vol] 4.1 mmol/L Normal 3.5 - 5.3 mmol/L FT Remisol Protein [Mass/Vol] 7.0 g/dL Normal 6.0 - 7.8 gm/dL [facility] Remisol Sodium [Moles/Vol] 138 mmol/L Normal 135 - 145 mmol/L [facility] Remisol Urea nitrogen [Mass/Vol] 24 mg/dL High 5 - 21 mg/dL [facility] Remisol Urea nitrogen/Creatinine [Mass ratio] 18 mg/mg Normal 10 - [facility] [facility] Remisol CMPon 07-09-2022 Albumin [Mass/Vol] 3.6 g/dL Normal 3.3-5.0 [facility] Comment on above: Performed By: #### 1 [id number], [id number], 4153153, [id number], [id number] ####[facility] [address] [place] [address] Albumin/Globulin (S) [Mass conc ratio] 1.1 Normal 1.1-2.2 [facility] Comment on above: Performed By: #### 1 [id number], [id number], 4806112, [id number], 9175762 ####[facility] [address] [place] [address] ALP [Catalytic activity/Vol] 87 Int._Unit/L Normal 21-98 [facility] Comment on above: Performed By: #### 1 [id number], 9909683, 6095623, 23390938, 8488556 ####[facility] [address] [place] [address] ALT No additional P-5'-P [Catalytic activity/Vol] 18 Int._Unit/L Normal 6-46 [facility] Comment on above: Performed By: #### 1 [id number], 7661252, 2981082, 56821529, 0756316 ####[facility] [address] [place] [address] Anion gap [Moles/Vol] 11 mmol/L Normal 6-16 [facility] Comment on above: Performed By: #### 1 [id number], 3684846, 8697173, 61954472, 7871796 ####[facility] [address] [place] [address] AST [Catalytic activity/Vol] 18 Int._Unit/L Normal 5-43 [facility] Comment on above: Performed By: #### 1 [id number], 3439655, 1998585, 17578509, 4781403 ####[facility] [address] [place] [address] Bilirubin [Mass/Vol] 1.0 mg/dL Normal 0.0-1.1 [facility] Comment on above: Performed By: #### 1 [id number], 4654359, 1218210, 82877138, 9421731 ####[facility] [address] [place] [address] Calcium [Mass/Vol] 8.7 mg/dL Low 8.9-11.1 [facility] Comment on above: Performed By: #### 1 [id number], 0194042, 7086988, 62254734, 0294418 ####[facility] [address] [place] [address] Chloride [Moles/Vol] 108 mmol/L Normal 101-111 [facility] Comment on above: Performed By: #### 1 [id number], 7256402, 2621031, 91402445, 7833924 ####[facility] [address] [place] [address] CO2 [Moles/Vol] 23 mmol/L Normal 21-31 [facility] Comment on above: Performed By: #### 1 [id number], 7249634, 7937784, 27234375, 0922864 ####[facility] [address] [place] [address] Creatinine [Mass/Vol] 1.3 mg/dL Normal 0.5-1.3 [facility] Comment on above: Performed By: #### 1 [id number], 6529989, 4287407, 10023778, 9270332 ####[facility] [address] [place] [address] Globulin (S) [Mass/Vol] 3.4 g/dL Normal 1.4-4.[address] [facility] Comment on above: Performed By: #### 1 [id number], 6727360, 6628997, 24304906, 3618131 ####[facility] [address] [place] [address] Glucose [Mass/Vol] 119 mg/dL Normal 55-199 [facility] Comment on above: Result Comment: If t his glucose result represents a fasting glucose, interpretation should refer to the following reference range: 55-99 mg/dL Performed By: #### 1 [id number], 3445402, 8361813, 59354384, 3872635 ####[facility] [address] [place] [address] Potassium [Moles/Vol] 4.1 mmol/L Normal 3.5-5.3 [facility] Comment on above: Performed By: #### 1 0456561, 0009540, 5275516, 22424366, 6221630 ####[facility] [address] [place] [address] Protein [Mass/Vol] 7.0 g/dL Normal 6.0-7.8 [facility] Comment on above: Performed By: #### 1 [id number], 0929046, 5640214, 08363601, 0495395 ####[facility] [address] [place] [address] Sodium [Moles/Vol] 138 mmol/L Normal 135-145 [facility] Comment on above: Performed By: #### 1 3405680, 3320071, 2810818, 54017323, 8044150 ####[facility] [address] [place] [address] Urea nitrogen [Mass/Vol] 24 mg/dL High 5-21 [facility] Comment on above: Performed By: #### 1 [id number], 6769760, 4043049, 56238550, 3301267 ####[facility] [address] [place] [address] Urea nitrogen/Creatinine [Mass ratio] 18 No Units Normal 10-20 [facility] Comment on above: Performed By: #### 1 8243618, 6847116, 9193358, 23446372, 5738384 ####[facility] [address] [place] [address] Consent for Treatmenton 06-21 Consent for Treatment [id number]:12 7 Normal [facility] HEMATOLOGYOrdered By: SYSTEM SYSTEM on 07-09-2022 Basophils/100 [...] [Vol rate/Area] 49 mL/min/1.73 m2 Low >=59 [facility] Comment on above: Order Comment: Order added by Discern Expert. Result Comment: eGFR is race adjusted. AA=. Performed By: #### 1 6007137, 6340702, 1145581, 02071450, 5350046 ####[facility] [address] [place] [address] GFR/1.73 sq M.predicted among non-blacks MDRD (S/P/Bld) [Vol rate/Area] 40 mL/min/1.73 m2 Low >=59 [facility] Comment on above: Order Comment: Order added by Discern Expert. Result Comment: Core Baker aubrey kidney disease could be indicated at eGFR's of less than 60 mL/min/1.73m2. Kidney failure is indicated at less than 15 mL/min/1.73m2. Performed By: #### 1 [id number], 7221698, 2911562, 33810658, 2453532 ####[facility] [address] [place] [address] ONC - Otheron 06-28-2022 ONC - Other [id number]:1 Normal [facility] Physician Orderon 06-12-2022 Physician Order [id number]:05 18 Normal [facility] CHEMISTRYOrdered By: SYSTEM SYSTEM on 06-05-2022 Albumin [...] - 4.0 gm/dL [facility] Remisol Glucose [Mass/Vol] 121 mg/dL Normal 55 - 199 mg/dL [facility] Remisol Potassium [Moles/Vol] 4.0 mmol/L Normal 3.5 - 5.3 mmol/L [facility] Remisol Protein [Mass/Vol] 6.7 g/dL Normal 6.0 - 7.8 gm/dL [facility]isol Sodium [Moles/Vol] 138 mmol/L Normal 135 - 145 mmol/L [facility] Remisol Urea nitrogen [Mass/Vol] 26 mg/dL High 5 - 21 mg/dL [facility] Remisol Urea nitrogen/Creatinine [Mass ratio] 22 mg/mg High 10 - 20 [facility] Remisol HEMATOLOGYOrdered By: SYSTEM SYSTEM on 06-05-2022 Basophils/100 [...] HemeAutoSS Reference Laboratory Testing Ordered By: Chrissy RizoUseada on 06-05-2022 Cancer Ag 27-29 Qn 17.2 unit/mL Invalid Interpretation Code 0.0-38.6un it/mL [facility] SendOutsSS Comment on above: Result Comment: [facility] Miiixaur Immunochemiluminometric Methodology (ICMA) Values obtained with different assay methods or kits cannot be used interchangeably. Results cannot be interpreted as absolute evidence of the presence or absence of malignant disease. Performed at: [address] [id number] PhD [place] vAelar CHEMISTRYOrdered By: SYSTEM SYSTEM on 05-07-2022 Albumin [...] - 4.0 gm/dL [facility] Remisol Glucose [Mass/Vol] 144 mg/dL Normal 55 [...] - 7.5 E9/L [facility] HemeAutoSS HEMATOLOGYOrdered By: Jaiem Londono on 05-07-2022 Erythrocyte distribution width (RBC) [...] 38 mL/min/1.73 m2 Low >=59mL/min /1.73 m2 [facility] Chem S GFR/1.73 sq M.predicted among non-blacks MDRD (S/P/Bld) [Vol rate/Area] 32 mL/min/1.73 m2 Low >=59mL/min /1.73 m2 [facility] [...] 24 mL/min/1.73 m2 Low >=59mL/min /1.73 m2 [facility] Chem S GFR/1.73 sq M.predicted among non-blacks MDRD (S/P/Bld) [Vol rate/Area] 20 mL/min/1.73 m2 Low >=59mL/min /1.73 m2 [facility] Chem S Globulin (S) [Mass/Vol] 3.2 g/dL Normal 1.4 - 4.0 gm/dL [facility] Remisol Glucose [Mass/Vol] 136 mg/dL Normal 55 - 199 mg/dL [facility] Remisol Potassium [Moles/Vol] 4.4 mmol/L Normal 3.5 [...] - 4.0 gm/dL [facility] Remisol Glucose [Mass/Vol] 166 mg/dL Normal 55 [...] 4.2 E12/L Low 4.3 - 5.9 E12/L [facility] HemeAutoSS WBC corrected for nucl RBC Auto (Bld) [#/Vol] 4.0 E9/L Normal 4.0 - 11.0 E9/L [facility] Clinic Note - Heme Onc Sched tata [...] Documentation: Clinic Location/Phone Number: Clinic Location/Phone Number: [facility] End Of Visit MU Report Item: Visit Summary given or mailed to patientyes Mailed to patient Electronic Signatures: Isa Wong (SEC) (Signed 28-Aug-2021 16:01) Authored: Retrieve Patient Instructions, End of Visit Documentation Last Updated: 28-Aug-2021 16:01 by Isa Wnog (SEC) Normal [facility] Clinic Note - Heme Onc-New Evaristo king 08-28-2021 Clinic Note - Heme Onc-New Visit Patient Visit Information: Visit Type: New Visit Cancer History: Breast AJCC Edition: 8th (AJCC), Diagnosis Date: August 2021, Stage(no match), pM1 G2 History of Present Illness: ID Statement: null is a () day old null Interval History: BREAST CANCER DIAGNOSIS metastatic ER+/MS+/HER2- breast cancer (fE1P3T4) CONSULTING ONCOLOGIST Dr David Caldera CURRENT THERAPY anastrozole/ribociclib x 3 weeks HPI Patient is a pleasant 71 y/o woman here for a 2nd opinion. She presented on 06/29/21 with a 4.2cm mass in the right breast which she had for >1 year. Biopsy revealed ER/MS >95%/HER2- breast cancer. Also has known h/p [...] corresponding to (more content not included)... Normal [facility] Clinic Note - Intakeon 08-28 Clinic Note [...] (kg/m2)39 kg/M2 BSA (m2)2.08 M2 Nursing Verification [id number] Nursing Verification Height in cm159 centimeter(s) SpO2 (%)98 % SpO2 Patient Onroom air Pain Screening: Patient States Painno (0) Timber Faller for intimate exam offered to patient: Patient [...] you are livingno Depression: Past 2 wks: [place] down, depressed or hopelessno Past 2 wks: [place] little interest/pleasure doing thingsno Any Thoughts of [...] 13:21) Authored: Patient Visit Information, Vital Signs, Timber Faller, Allergies, Outpatient Medication Profile, Notification, Travel History, Falls, Spiritual/Procedural, Adv Dir, Violence, Depression, Substance, Nutrition/Learning Lisette Valle (RN) (Signed 28-Aug-2021 15:47) Authored: Vital Signs, Notification Co-Signer: Patient Visit Information, Vital Signs, Timber Faller, Allergies, Outpatient Medication Profile, Notification, Travel History, Falls, Spiritual/Procedural, Adv Dir, Violence, Depression, Substance, Nutrition/Learning Last Updated: 28-Aug-2021 15:47 by Lisette Valle (RN) [facility] Narrative Note - Outpatient- Community Health Workeron 08-25-2021 Narrative Note - Outpatient-Community Health Worker Narrative Note: CHW: DisciplineCommunity Health Worker Best way to contact patient#[id number] Veteranno Has patient been seen by a [...] and she stated that she has open [employer] health insurance. Pt. also stated he last name was being spelled wrong and that it should list [place] not [place]. Electronic Signatures: Leroy Gallegos (COOR) (Signed 25-Aug-2021 11:50) Authored: BALTAZARW Last Updated: 25-Aug-2021 11:50 by Leroy Gallegos (COOR) Normal [facility] CHEMISTRYOrdered By: SYSTEM SYSTEM on 08-21-2021 Albumin [...] explained role within the multidisciplinary team at [facility]; reviewed upcoming appointment with Dr. Seay, [...] 16-Aug-2021 11:34 by Aliya Dobson (DELGADO) Normal [facility] CHEMISTRYOrdered By: SYSTEM SYSTEM on 08-07-2021 Albumin [...] 1.1 mg/dL Normal 0.5 - 1.3 mg/dL FT [...] 160.02 cm MD Mary Rodriguez Work Phone: 05-31-2023 08:36-0500 Body weight 86.18 kg MD Mary Rodriguez Work Phone: 05-01-2023 14:03-0500 Heart rate 70 /min [facility] 05-01-2023 14:03-0500 SaO2% (BldA) [Mass fraction] 98 % [facility] 05-01-2023 14:02-0500 Body temperature 98.24 [degF] [facility] 05-01-2023 14:02-0500 Diastolic blood pressure 81 mm[Hg] [facility] 05-01-2023 14:02-0500 Mean blood pressure 93 mm[Hg] [facility] 05-01-2023 14:02-0500 Systolic blood pressure 118 mm[Hg] [facility] 01-30-2023 14:25-0400 Heart rate 76 /min [facility] 01-30-2023 14:25-0400 SaO2% (BldA) [Mass fraction] 96 % [facility] 01-30-2023 14:25-0400 Diastolic blood pressure 61 mm[Hg] [facility] 01-30-2023 14:25-0400 Mean blood pressure 79 mm[Hg] [facility] 01-30-2023 14:25-0400 Systolic blood pressure 115 mm[Hg] [facility] 01-30-2023 14:25-0400 Body temperature 97.7 [degF] [facility] 01-30-2023 14:00-0400 Blood Pressure Location [facility] 01-30-2023 14:00-0400 Respiratory rate 16 /min [facility] 12-23-2022 10:15-0400 Hourly Rounding Mbanefo OJUKWU [facility] 12-23-2022 10:15-0400 Promise to Return Mbanefo OJUKWU [facility] 12-23-2022 09:00-0400 Hourly Rounding Mbanefo OJUKWU [facility] 12-23-2022 09:00-0400 Promise to Return Mbanefo OJUKWU [facility] 12-23-2022 08:46-0400 Diastolic blood pressure 64 mm[Hg] Mbanefo OJUKWU [facility] 12-23-2022 08:46-0400 Systolic blood pressure 96 mm[Hg] Mbanefo OJUKWU [facility] 12-23-2022 08:40-0400 gluc 111 mg/dL Mbanefo OJUKWU [facility] 12-23-2022 08:37-0400 Heart rate 56 /min Mbanefo OJUKWU [facility] 12-23-2022 08:37-0400 SaO2% (BldA) [Mass fraction] 96 % Mbanefo OJUKWU [facility] 12-23-2022 08:37-0400 Respiratory rate 18 /min Mbanefo OJUKWU [facility] 12-23-2022 08:37-0400 Body temperature 97.88 [degF] Mbanefo OJUKWU [facility] 12-23-2022 08:37-0400 Diastolic blood pressure 64 mm[Hg] Mbanefo OJUKWU [facility] 12-23-2022 08:37-0400 Mean blood pressure 74 mm[Hg] Mbanefo OJUKWU [facility] 12-23-2022 08:37-0400 Systolic blood pressure 96 mm[Hg] Mbanefo OJUKWU [facility] 12-23-2022 08:00-0400 Hourly Rounding Mbanefo OJUKWU [facility] 12-23-2022 08:00-0400 Promise to Return Mbanefo OJUKWU [facility] 12-22-2022 23:44-0400 Heart rate 58 /min Mbanefo OJUKWU [facility] 12-22-2022 23:44-0400 SaO2% (BldA) [Mass fraction] 97 % Mbanefo OJUKWU [facility] 12-22-2022 23:44-0400 Body temperature 98.06 [degF] Mbanefo OJUKWU [facility] 12-22-2022 23:44-0400 Diastolic blood pressure 60 mm[Hg] Mbanefo OJUKWU [facility] 12-22-2022 23:44-0400 Mean blood pressure 72 mm[Hg] Mbanefo OJUKWU [facility] 12-22-2022 23:44-0400 Systolic blood pressure 96 mm[Hg] Mbanefo OJUKWU [facility] 12-22-2022 19:33-0400 Heart rate 62 /min Mbanefo OJUKWU [facility] 12-22-2022 19:33-0400 SaO2% (BldA) [Mass fraction] 97 % Mbanefo OJUKWU [facility] 12-22-2022 19:33-0400 Body temperature 98.24 [degF] Mbanefo OJUKWU [facility] 12-22-2022 19:32-0400 Mean blood pressure 69 mm[Hg] Mbanefo OJUKWU [facility] 12-22-2022 16:03-0400 gluc 129 mg/dL Mbanefo OJUKWU [facility] 12-22-2022 15:46-0400 Respiratory rate 16 /min Mbanefo OJUKWU [facility] 12-22-2022 11:52-0400 gluc 158 mg/dL Mbanefo OJUKWU [facility] 12-22-2022 11:13-0400 Respiratory rate 13 /min Mbanefo OJUKWU [facility] 12-22-2022 06:56-0400 Blood Pressure Location Mbanefo OJUKWU [facility] 12-22-2022 06:56-0400 Body temperature 98.42 [degF] Mbanefo OJUKWU [facility] 12-22-2022 06:56-0400 Mean blood pressure 85 mm[Hg] Mbanefo OJUKWU [facility] 12-21-2022 23:00-0400 Blood Pressure Location Mbanefo OJUKWU [facility] 12-21-2022 23:00-0400 Body temperature 98.96 [degF] Mbanefo OJUKWU [facility] 12-21-2022 23:00-0400 Mean blood pressure 84 mm[Hg] Mbanefo OJUKWU [facility] 12-21-2022 05:35-0400 Mean blood pressure 79 mm[Hg] Mbanefo OJUKWU [facility] 12-20-2022 21:08-0400 Body temperature 97.7 [degF] Mbanefo OJUKWU [facility] 12-20-2022 21:08-0400 Heart rate 65 /min Mbanefo OJUKWU [facility] 12-20-2022 15:06-0400 Heart rate 75 /min Mbanefo OJUKWU [facility] 12-20-2022 00:45-0400 Diastolic blood pressure 72 mm[Hg] David Ran [facility] 12-20-2022 00:45-0400 Heart rate 76 /min David Rna [facility] 12-20-2022 00:45-0400 Mean blood pressure 89 mm[Hg] David Ran [facility] 12-20-2022 00:45-0400 Respiratory rate 14 /min David Ran [facility] 12-20-2022 00:45-0400 SaO2% (BldA) [Mass fraction] 100 % David Ran [facility] 12-20-2022 00:45-0400 Systolic blood pressure 124 mm[Hg] David Ran [facility] 12-20-2022 00:15-0400 Diastolic blood pressure 70 mm[Hg] David Ran [facility] 12-20-2022 00:15-0400 Heart rate 71 /min David Ran [facility] 12-20-2022 00:15-0400 Mean blood pressure 92 mm[Hg] David Ran [facility] 12-20-2022 00:15-0400 Respiratory rate 14 /min David Ran [facility] 12-20-2022 00:15-0400 SaO2% (BldA) [Mass fraction] 92 % David Ran [facility] 12-20-2022 00:15-0400 Systolic blood pressure 137 mm[Hg] David Ran [facility] 12-19-2022 23:45-0400 Diastolic blood pressure 61 mm[Hg] David Ran [facility] 12-19-2022 23:45-0400 Heart rate 80 /min David Ran [facility] 12-19-2022 23:45-0400 Mean blood pressure 85 mm[Hg] David Ran [facility] 12-19-2022 23:45-0400 Respiratory rate 16 /min David Ran [facility] 12-19-2022 23:45-0400 SaO2% (BldA) [Mass fraction] 97 % David Ran [facility] 12-19-2022 23:45-0400 Systolic blood pressure 132 mm[Hg] David Ran [facility] 12-19-2022 20:41-0400 Body temperature 98.24 [degF] David Ran [facility] 12-19-2022 20:41-0400 Heart rate 82 /min David Ran [facility] 12-19-2022 20:41-0400 Respiratory rate 20 /min David Tong [facility] 12-17-2022 13:20-0400 Diastolic blood pressure 77 mm[Hg] Jeffery Castelane [facility] 12-17-2022 13:20-0400 Heart rate 60 /min Jeffery Castelane [facility] 12-17-2022 13:20-0400 Hourly Rounding Jeffery Castelane [facility] 12-17-2022 13:20-0400 Mean blood pressure 95 mm[Hg] Jeffery Katherine [facility] 12-17-2022 13:20-0400 Promise to Return Jeffery Castelane [facility] 12-17-2022 13:20-0400 SaO2% (BldA) [Mass fraction] 97 % Jeffery Katherine [facility] 12-17-2022 13:20-0400 Systolic blood pressure 132 mm[Hg] Jeffery Katherine [facility] 12-17-2022 12:20-0400 Diastolic blood pressure 71 mm[Hg] Jeffery Katherine [facility] 12-17-2022 12:20-0400 Heart rate 71 /min Jeffery Castelane [facility] 12-17-2022 12:20-0400 Hourly Rounding Jeffery Castelane [facility] 12-17-2022 12:20-0400 Mean blood pressure 86 mm[Hg] Jeffery Katherine [facility] 12-17-2022 12:20-0400 Promise to Return Jeffery Katherine [facility] 12-17-2022 12:20-0400 SaO2% (BldA) [Mass fraction] 96 % Jfefery Katherine [facility] 12-17-2022 12:20-0400 Systolic blood pressure 117 mm[Hg] Jeffery Katherine [facility] 12-17-2022 11:21-0400 Hourly Rounding Jeffery Castelane [facility] 12-17-2022 11:21-0400 Promise to Return Jeffery Castelane [facility] 12-17-2022 11:20-0400 Diastolic blood pressure 84 mm[Hg] Jeffery Katherine [facility] 12-17-2022 11:20-0400 Heart rate 68 /min Jeffery Katherine [facility] 12-17-2022 11:20-0400 Mean blood pressure 99 mm[Hg] Jeffery Katherine [facility] 12-17-2022 11:20-0400 Respiratory rate 18 /min Jeffery Katherine [facility] 12-17-2022 11:20-0400 SaO2% (BldA) [Mass fraction] 96 % Jeffery Katherine [facility] 12-17-2022 11:20-0400 Systolic blood pressure 130 mm[Hg] Jeffery Katherine [facility] 12-17-2022 10:22-0400 Body temperature 97.88 [degF] Jeffery Katherine [facility] 12-17-2022 10:22-0400 Heart rate 69 /min Jeffery Katherine [facility] 12-17-2022 10:22-0400 Respiratory rate 18 /min Jeffery Katherine [facility] 11-04-2022 14:00-0400 Hourly Rounding Ronobir JESSICA [facility] 11-04-2022 13:40-0400 Hourly Rounding Ronobir JESSICA [facility] 11-04-2022 13:40-0400 Promise to Return Ronobir JESSICA [facility] 11-04-2022 13:00-0400 Hourly Rounding Ronobir JESSICA [facility] 11-04-2022 12:26-0400 Promise to Return Ronobir JESSICA [facility] 11-04-2022 11:48-0400 Heart rate 78 /min Ronobir JESSICA [facility] 11-04-2022 11:48-0400 SaO2% (BldA) [Mass fraction] 95 % Ronobir JESSICA [facility] 11-04-2022 11:48-0400 Diastolic blood pressure 83 mm[Hg] Ronobir JESSICA [facility] 11-04-2022 11:48-0400 Mean blood pressure 96 mm[Hg] Ronobir JESSICA [facility] 11-04-2022 11:48-0400 Systolic blood pressure 122 mm[Hg] Ronobir JESSICA [facility] 11-04-2022 11:48-0400 Body temperature 98.24 [degF] Ronobir JESSICA [facility] 11-04-2022 11:17-0400 Promise to Return Ronobir JESSICA [facility] 11-04-2022 08:24-0400 Diastolic blood pressure 78 mm[Hg] Ronobir JESSICA [facility] 11-04-2022 08:24-0400 Systolic blood pressure 127 mm[Hg] Ronobir JESSICA [facility] 11-04-2022 07:32-0400 Heart rate 77 /min Ronobir JESSICA [facility] 11-04-2022 07:32-0400 SaO2% (BldA) [Mass fraction] 94 % Ronobir JESSICA [facility] 11-04-2022 07:31-0400 Body temperature 97.7 [degF] Ronobir JESSICA [facility] 11-04-2022 07:31-0400 Diastolic blood pressure 78 mm[Hg] Ronobir JESSICA [facility] 11-04-2022 07:31-0400 Mean blood pressure 94 mm[Hg] Ronobir JESSICA [facility] 11-04-2022 07:31-0400 Systolic blood pressure 127 mm[Hg] Ronobir JESSICA [facility] 11-03-2022 23:16-0400 Heart rate 79 /min Ronobir JESSICA [facility] 11-03-2022 23:16-0400 SaO2% (BldA) [Mass fraction] 97 % Ronobir JESSICA [facility] 11-03-2022 23:16-0400 Mean blood pressure 108 mm[Hg] Ronobir JESSICA [facility] 11-03-2022 23:15-0400 Body temperature 97.7 [degF] Ronobir JESSICA [facility] 11-03-2022 20:00-0400 Blood Pressure Location Ronobir JESSICA [facility] 11-03-2022 20:00-0400 Respiratory rate 21 /min Ronobir JESSICA [facility] 11-03-2022 09:00-0400 Mean blood pressure 87 mm[Hg] Ronobir JESSICA [facility] 11-03-2022 09:00-0400 Respiratory rate 16 /min Ronobir JESSICA [facility] 11-02-2022 21:15-0400 Mean blood pressure 95 mm[Hg] Ronobir JESSICA [facility] 11-02-2022 11:51-0400 Respiratory rate 18 /min Ronobir JESSICA [facility] 11-02-2022 03:50-0400 Heart rate 68 /min Ronobir JESSICA [facility] 11-02-2022 03:18-0400 Respiratory rate 10 /min Ronobir JESSICA [facility] 11-02-2022 02:38-0400 Nursing Progress Note Reason Other: pt complains of back pain. repositioned in bed. medicated for pain. Ronobir JESSICA [facility] 11-02-2022 02:38-0400 Respiratory rate 7 /min Ronobir JESSICA [facility] 11-02-2022 02:37-0400 Heart rate 73 /min Ronobir JESSICA [facility] 11-01-2022 23:15-0400 Nursing Progress Note Reason Other: trauma made medical at this time. mini cath done and urine sent to lab. pt repositioned in bed Ronobir JESSICA [facility] 11-01-2022 22:53-0400 Body temperature 96.62 [degF] Ronobir JESSICA [facility] 11-01-2022 22:53-0400 Heart rate 74 /min Ronobir JESSICA [facility] 11-01-2022 22:03-0400 Heart rate 69 /min Ronobir JESSICA [facility] 08-01-2022 13:00-0400 Blood Pressure [facility]-01-[facility] 13:00-0400 Body temperature 98.6 [degF] [facility]01[facility]2022 13:00-0400 Diastolic blood pressure 84 mm[Hg] [facility] 08-01-2022 13:00-0400 Heart rate 76 /min [facility] 08-01-2022 13:00-0400 Mean blood pressure 101 mm[Hg] [facility]-01-2022 13:00-0400 Respiratory rate 16 /min [facility] 08-01-2022 13:00-0400 SaO2% (BldA) [Mass fraction] 97 % [facility] 08-01-2022 13:00-0400 Systolic blood pressure 136 mm[Hg] Senthil Caldera [facility] 06-06-2022 12:59-0500 Heart rate 61 /min [facility] 06-06-2022 12:59-0500 SaO2% (BldA) [Mass fraction] 98 % [facility] 06-06-2022 12:59-0500 Respiratory rate 16 /min [facility] 06-06-2022 12:59-0500 Body temperature 97.7 [degF] [facility] 06-06-2022 12:58-0500 Diastolic blood pressure 106 mm[Hg] [facility] 06-06-2022 12:58-0500 Mean blood pressure 116 mm[Hg] [facility] 06-06-2022 12:58-0500 Systolic blood pressure 137 mm[Hg] [facility] 03-28-2022 14:10-0500 Heart rate 66 /min [facility] 03-28-2022 14:10-0500 SaO2% (BldA) [Mass fraction] 96 % [facility] 03-28-2022 14:09-0500 Body temperature 98.42 [degF] [facility] 03-28-2022 14:09-0500 Diastolic blood pressure 77 mm[Hg] [facility] 03-28-2022 14:09-0500 Mean blood pressure 93 mm[Hg] [facility] 03-28-2022 14:09-0500 Systolic blood pressure 127 mm[Hg] [facility] 03-28-2022 14:09-0500 Blood Pressure Location [facility] 03-28-2022 14:09-0500 Body temperature 98.42 [degF] [facility] 03-28-2022 14:09-0500 Mean blood pressure 94 mm[Hg] [facility] 03-28-2022 14:09-0500 Respiratory rate 18 /min [facility] 01-18-2022 14:13-0400 Blood Pressure Location [facility] 01-18-2022 14:13-0400 Body temperature 98.06 [degF] [facility] 01-18-2022 14:13-0400 BP/Pulse Patient Position [facility] 01-18-2022 14:13-0400 Diastolic blood pressure 82 mm[Hg] Senthil Caldera [facility] 01-18-2022 14:13-0400 Heart rate 59 /min Senthilleopoldo Caldera [facility] 01-18-2022 14:13-0400 Mean blood pressure 98 mm[Hg] Senthil Caldera [facility] 01-18-2022 14:13-0400 Respiratory rate 16 /min Senthil Caldera [facility] 01-18-2022 14:13-0400 SaO2% (BldA) [Mass fraction] 98 % Senthilloepoldo Caldera [facility] 01-18-2022 14:13-0400 Systolic blood pressure 131 mm[Hg] Senthil Caldera [facility] 12-21-2021 13:34-0400 Blood Pressure Location Nohemi Fel[employer] [facility] 12-21-2021 13:34-0400 Body temperature 98.6 [degF] Nohemi UrbinaExpert TA [facility] 12-21-2021 13:34-0400 BP/Pulse Patient Position Nohemi UrbinaExpert TA [facility] 12-21-2021 13:34-0400 Diastolic blood pressure 85 mm[Hg] Nohemi UrbinaExpert TA [facility] 12-21-2021 13:34-0400 Heart rate 67 /min Nohemi Garcia [facility] 12-21-2021 13:34-0400 Mean blood pressure 101 mm[Hg] Nohemi Garcia [facility] 12-21-2021 13:34-0400 Respiratory rate 18 /min Nohmei UrbinaExpert TA [facility] 12-21-2021 13:34-0400 SaO2% (BldA) [Mass fraction] 93 % Nohemi [employer] [facility] 12-21-2021 13:34-0400 Systolic blood pressure 132 mm[Hg] Nohemi Garcia [facility] 12-21-2021 13:34-0400 Mean blood pressure 101 mm[Hg] Nohemi Garcia [facility] 11-30-2021 13:16-0400 Body temperature 98.24 [degF] [facility] 11-30-2021 13:16-0400 Diastolic blood pressure 79 mm[Hg] Senthil Caldera [facility] 11-30-2021 13:16-0400 Heart rate 78 /min [facility] 11-30-2021 13:16-0400 Mean blood pressure 98 mm[Hg] [facility] 11-30-2021 13:16-0400 SaO2% (BldA) [Mass fraction] 96 % [facility] 11-30-2021 13:16-0400 Systolic blood pressure 136 mm[Hg] [facility] 11-30-2021 13:00-0400 Blood Pressure Location [facility] 11-30-2021 13:00-0400 Respiratory rate 16 /min [facility] 11-02-2021 11:53-0400 Blood Pressure Location Nohemi Garcia [facility] 11-02-2021 11:53-0400 Body temperature 98.06 [degF] Nohemi Garcia [facility] 11-02-2021 11:53-0400 BP/Pulse Patient Position Nohemi Garcia [facility] 11-02-2021 11:53-0400 Diastolic blood pressure 64 mm[Hg] Nohemi Garcia [facility] 11-02-2021 11:53-0400 Heart rate 64 /min Nohemi Garcia [facility] 11-02-2021 11:53-0400 Mean blood pressure 89 mm[Hg] Nohemi Garcia [facility] 11-02-2021 11:53-0400 Respiratory rate 17 /min Nohemi Garcia [facility] 11-02-2021 11:53-0400 SaO2% (BldA) [Mass fraction] 97 % Nohemi Garcia [facility] 11-02-2021 11:53-0400 Systolic blood pressure 140 mm[Hg] Nohemi Garcia [facility] 10-05-2021 13:46-0400 Body temperature 98.42 [degF] [facility] 10-05-2021 13:46-0400 Diastolic blood pressure 83 mm[Hg] [facility] 10-05-2021 13:46-0400 Heart rate 69 /min [facility] 10-05-2021 13:46-0400 Mean blood pressure 104 mm[Hg] [facility] 10-05-2021 13:46-0400 SaO2% (BldA) [Mass fraction] 96 % [facility] 10-05-2021 13:46-0400 Systolic blood pressure 146 mm[Hg] [facility] 09-07-2021 12:48-0400 Body temperature 98.6 [degF] [facility] 09-07-2021 12:48-0400 Diastolic blood pressure 70 mm[Hg] [facility] 09-07-2021 12:48-0400 Heart rate 72 /min [facility] 09-07-2021 12:48-0400 Mean blood pressure 83 mm[Hg] [facility]-07-2021 12:48-0400 SaO2% (BldA) [Mass fraction] 96 % Senthil Caldera [facility] 09-07-2021 12:48-0400 Systolic blood pressure 109 mm[Hg] Senthil Caldera [facility] 09-07-2021 12:00-0400 Heart rate 69 /min Senthil Caldera [facility] 09-07-2021 12:00-0400 SaO2% (BldA) [Mass fraction] 98 % Senthilleopoldo Caldera [facility] 09-03-2021 00:20-0400 Body temperature 98.78 [degF] Carlos Martin [facility] 09-03-2021 00:20-0400 Diastolic blood pressure 80 mm[Hg] Carlos Martin [facility] 09-03-2021 00:20-0400 Heart rate 86 /min Carlos Martin [facility] 09-03-2021 00:20-0400 Respiratory rate 16 /min Carlos Martin [facility] 09-03-2021 00:20-0400 SaO2% (BldA) [Mass fraction] 95 % Carlos Martin [facility] 09-03-2021 00:20-0400 Systolic blood pressure 146 mm[Hg] Carlos Martin [facility] 08-10-2021 12:35-0400 Body temperature 98.06 [degF] Rickey Askew [facility] 08-10-2021 12:35-0400 Diastolic blood pressure 72 mm[Hg] Rickey Askew [facility] 08-10-2021 12:35-0400 Heart rate 77 /min Rickey Askew [facility] 08-10-2021 12:35-0400 Mean blood pressure 84 mm[Hg] Rickey Askew [facility] 08-10-2021 12:35-0400 Respiratory rate 12 /min Rickey Askew [facility] 08-10-2021 12:35-0400 SaO2% (BldA) [Mass fraction] 97 % Rickey Askew [facility] 08-10-2021 12:35-0400 Systolic blood pressure 108 mm[Hg] Rickey Askew [facility] 07-26-2021 10:27-0400 Body temperature 97.88 [degF] [facility] 07-26-2021 10:27-0400 Diastolic blood pressure 84 mm[Hg] [facility] 07-26-2021 10:27-0400 Heart rate 59 /min [facility] 07-26-2021 10:27-0400 Mean blood pressure 112 mm[Hg] [facility] 07-26-2021 10:27-0400 SaO2% (BldA) [Mass fraction] 97 % [facility] 07-26-2021 10:27-0400 Systolic blood pressure 169 mm[Hg] [facility] 07-26-2021 10:00-0400 Respiratory rate 16 /min [facility] 07-18-2021 12:18-0400 Body temperature 97.7 [degF] [facility] 07-18-2021 12:18-0400 Diastolic blood pressure 83 mm[Hg] [facility] 07-18-2021 12:18-0400 Heart rate 60 /min [facility] 07-18-2021 12:18-0400 Mean blood pressure 106 mm[Hg] [facility] 07-18-2021 12:18-0400 SaO2% (BldA) [Mass fraction] 98 % Senthil Caldera [facility] 07-18-2021 12:18-0400 Systolic blood pressure 152 mm[Hg] Snethil Caldera [facility] 07-18-2021 12:00-0400 Respiratory rate 16 /min Senthil Caldera [facility] 07-11-2021 10:20-0400 Body temperature 97.7 [degF] Gavino TABOR [facility] [place] Encounters Encounter Date Encounter Type Care Provider Facility Start: 06-05-2023 Clinisync Result Encounter Mary Rodriguez MD Work Phone: [facility] Unsolicited Start: 06-05-2023 Clinisync Result Encounter Mary Rodriguez MD Work Phone: [facility] Unsolicited Start: 05-31-2023 External Result Encounter Senthil Caldera DO Work Phone: [facility] Unsolicited Start: 05-31-2023 External Result Encounter Senthil Caldera DO Work Phone: [facility] Unsolicited Start: 05-31-2023 End: 05-31-2023 ambulatory Mary Rodriguez Facility: Start: 05-31-2023 End: 05-31-2023 ambulatory MD Mary Rodriguez Work Phone: [facility] Work Phone: Start: 05-31-2023 End: 05-31-2023 Patient encounter procedure MD Mary Rodriguez Work Phone: [facility] Work Phone: Start: 05-24-2023 Clinisync Result Encounter Mary Rodriguez MD Work Phone: [facility] Unsolicited Start: 05-24-2023 Clinisync Result Encounter Mary Rodirguez MD Work Phone: [facility] Unsolicited Start: 05-01-2023 End: 05-02-2023 ambulatory Senthil Caldera Facility:[facility] Start: 05-01-2023 End: 05-01-2023 Patient encounter procedure Senthil Caldera [facility] Start: 01-30-2023 End: 01-31-2023 ambulatory Senthil Caldera Facility:[facility] Start: 01-30-2023 End: 01-30-2023 Patient encounter procedure Senthil Caldera [facility] Start: 12-20-2022 End: 12-23-2022 Evaluation and management of inpatient Zaheer Sloan Facility:[facility] Start: 12-20-2022 End: 12-23-2022 Evaluation and management of inpatient Nic YEPEZ [facility] Start: 12-19-2022 End: 12-20-2022 Emergency department patient visit David Tong Facility:[facility] Start: 12-19-2022 End: 12-20-2022 Emergency department patient visit David Tong [facility] Start: 12-17-2022 End: 12-17-2022 Emergency department patient visit Jeffery Murphy Facility:[facility] Start: 12-17-2022 End: 12-17-2022 Emergency department patient visit Jeffery Murphy [facility] Start: 12-14-2022 End: 12-15-2022 ambulatory Sammythea QUEZADA Facility:[id number] Start: 12-14-2022 End: 12-14-2022 Manual pelvic examination [facility] Start: 12-05-2022 ambulatory Lorie Wright y:CD:[id number] Start: 11-16-2022 End: 12-16-2022 ambulatory Sammy QUEZADA Facility:[id number] Start: 11-16-2022 End: 12-16-2022 In-Between Visit [facility] Start: 11-06-2022 End: 11-07-2022 ambulatory Sammy QUEZADA Facility:[id number] Start: 11-06-2022 End: 11-06-2022 Off-Site [facility] Start: 11-04-2022 End: 12-15-2022 ambulatory Sammy QUEZADA Facility:[facility] Start: 11-01-2022 End: 11-04-2022 ambulatory Gavino Erickson Facility:[facility] Start: 11-01-2022 End: 11-04-2022 Observation Mariia LOPEZ [facility] Start: 09-27-2022 End: 09-28-2022 ambulatory Nohemi Garcia Facility:[facility] Start: 09-25-2022 End: 09-26-2022 ambulatory Senthil Caldera Facility:[facility] Start: 09-25-2022 End: 09-25-2022 Patient encounter procedure Senthil Caldera [facility] Start: 09-08-2022 End: 09-08-2022 Emergency department patient visit Pedro Nava Facility:[facility] Start: 09-08-2022 End: 09-09-2022 ambulatory Senthil Caldera Facility:[facility] Start: 08-01-2022 End: 08-02-2022 ambulatory Senthil Caldera Facility:[facility] Start: 08-01-2022 End: 08-01-2022 Patient encounter procedure Senthil Caldera [facility] Start: 07-30-2022 End: 07-31-2022 ambulatory Senthil Caldera Facility:[facility] Start: 07-30-2022 End: 07-30-2022 Patient encounter procedure Senthil Caldera [facility] Start: 07-25-2022 End: 10-24-2022 ambulatory DO Senthil Caldera Facility:[facility] Start: 07-25-2022 End: 10-23-2022 Recurring Senthil Caldera [facility] Start: 07-09-2022 End: 07-10-2022 ambulatory Senthil Caldera Facility:[facility] Start: 07-09-2022 End: 07-09-2022 Patient encounter procedure Senthil Caldera [facility] Start: 06-06-2022 End: 06-06-2022 Patient encounter procedure Senthil Caldera [facility] Start: 03-28-2022 End: 03-28-2022 Patient encounter procedure Senthil Caldera [facility] Start: 03-17-2022 End: 06-17-2022 Recurring Nohemi Gerard Radha [facility] Start: 01-18-2022 End: 01-18-2022 Patient encounter procedure Senthil Caldera [facility] Start: 01-02-2022 End: 09-03-2022 Recurring Senthil Caldera [facility] Start: 12-26-2021 End: 12-26-2021 Patient encounter procedure Senthil Caldera [facility] Start: 12-21-2021 End: 12-21-2021 Patient encounter procedure Nohemi Felizyuliya [facility] Start: 11-30-2021 End: 11-30-2021 Patient encounter procedure Senthil Caldera [facility] Start: 11-27-2021 End: 11-27-2021 Patient encounter procedure Senthil Caldera [facility] Start: 11-25-2021 End: 02-23-2022 Recurring Nohemi Garcia [facility] Start: 11-02-2021 End: 11-02-2021 Patient encounter procedure Nohemi Garcia [facility] Start: 11-01-2021 End: 11-01-2021 Patient encounter procedure Senthil Caldera [facility] Start: 10-05-2021 End: 10-05-2021 Patient encounter procedure Senthil Caldera [facility] Start: 10-02-2021 End: 10-02-2021 Patient encounter procedure Senthil Caldera [facility] Start: 09-07-2021 End: 09-07-2021 Patient encounter procedure Senthil Caldera [facility] Start: 09-03-2021 End: 09-03-2021 Emergency department patient visit Carlos Salazar [facility] Start: 08-21-2021 End: 08-21-2021 Patient encounter procedure Senthil Caldera [facility] Start: 08-21-2021 End: 08-21-2021 Patient encounter procedure Senthil Caldera [facility] Start: 08-10-2021 End: 08-10-2021 Patient encounter procedure Rickey Askew [facility] Start: 08-07-2021 End: 08-07-2021 Patient encounter procedure Senthil Caldera [facility] Start: 07-26-2021 End: 07-26-2021 Patient encounter procedure Senthil Caldera [facility] Start: 07-26-2021 End: 07-26-2021 Patient encounter procedure Senthil Caldera [facility] Start: 07-25-2021 End: 08-18-2021 Pre-admission assessment Gavino TABOR [facility] Start: 07-18-2021 End: 07-18-2021 Patient encounter procedure Senthilleopoldo Caldera [facility] Start: 07-11-2021 End: 07-11-2021 Patient encounter procedure Gavino TABOR [facility] [place] Procedures Date Procedure Procedure Detail Performing Clinician Start: 06-05-2023 ALL CBC WITH AUTO DIFF Mary Rodriguez MD Work Phone: Start: 05-31-2023 Positron emission tomography with computed tomography MD Mary Rodriguez Work Phone: Start: 05-31-2023 GLUCOSE POCT GLUCOMETERS Senthil J Verenice DO Work Phone: Start: 05-24-2023 ALL CBC WITH AUTO DIFF Mary Rodriguez MD Work Phone: Start: 07-04-2021 Core needle biopsy o f breast Gavino TABOR Comment on above: right Start: 04-10-2020 Colonoscopy Mary Rodriguez MD Work Phone: Tonsillectomy and adenoidectomy Gavino TABOR Plan of Treatment Date Care Activity Detail Author Start: 04-10-2030 Screening for malign ant neoplasm of colon [facility] Start: 01-24-2023 Hemoglobin A1c measurement Diabetes: Hemoglobin A1C [facility] Start: 12-21-2022 Influenza vaccination Influenza Vacc ine (#1) [facility] Start: 09-13-2022 Medicare Annual Well ness (AWV) Medicare Annual Wellness (AWV) [facility] Start: 07-09-1959 Glaucoma screening Diabetes: R etinopathy Screening [facility] Start: 1950 Screening for malign ant neoplasm of colon [facility] Immunizations Immunization Date Immunization Notes Care Provider Fa cility 02-13-2021 Influenza, High-dose Seasonal, Quadrivalent, Preservative Free Mary Rodriguez MD Work Phone: [facility] 02-13-2021 influenza virus vaccine, unspecified formulation Mary Rodriguez MD Work Phone: [facility] 01-20-2021 influenza virus vaccine, unspecified formulation Gavino TABOR [facility] [place] 05-22-2019 influenza, high dose seasonal, preservative-free Mary Rodriguez MD Work Phone: [facility] 03-19-2018 influenza, high dose seasonal, preservative-free Mary Rodriguez MD Work Phone: [facility] 04-12-2017 influenza, high dose seasonal, preservative-free Mary Rodriguez MD Work Phone: [facility] 04-12-2017 pneumococcal conjuga te vaccine, 13 valent Mary Rodriguez MD Work Phone: [facility] Payers Date Payer Category Payer Self-pay 2023 Medicaid [id number] 2022 Medicare [id number] 2022 Unknown [employer] [id number] 2022-Present [address] [place] [address] [id number] 2021 Private Health Insurance [id number] 1950 Unknown [id number] [id number] 1949 Unknown [id number] 2.16.840.1.624093.3.579.2.7 1949 Unknown [id number] 2.16.840.1.496154.3.579.2.7 27 1949 Unknown [id number] 2.16.840.1.497415.3.579.2.7 1949 Unknown [id number] 2.16.840.1.442884.3.579.2.7 27 1949 Unknown [id number] 2.16.840.1.662111.3.579.2.7 27 1949 Unknown [id number] 2.16.840.1.903087.3.579.2.7 27 1949 Unknown [id number] 2.16.840.1.281804.3.579.2.7 1949 Unknown [id number] 2.16.840.1.748564.3.579.2.7 1949 Unknown [id number] 2.16.840.1.427901.3.579.2.7 27 1949 Unknown [id number] 2.16.840.1.742804.3.579.2.7 27 1949 Unknown [id number] 2.16.840.1.424526.3.579.2.7 27 1949 Unknown [id number] 2.16.840.1.121891.3.579.2.7 27 1949 Unknown [id number] 2.16.840.1.928442.3.579.2.7 27 1949 Unknown [id number] 2.16.840.1.667514.3.579.2.7 27 1949 Unknown [id number] 2.16.840.1.075945.3.579.2.7 27 1949 Unknown [id number] 2.16.840.1.472457.3.579.2.7 27 1949 Unknown [id number] 2.16.840.1.933053.3.579.2.7 27 1949 Unknown [id number] 2.16.840.1.773030.3.579.2.7 27 Medicare Medicare [id number] Unknown [id number] 2.16.840.1.067290.3.579.2.5 31 Social History Date Type Detail Facility Start: 07-04-2021 End: 09-19-2022 Tobacco smoking status Never smoked tobacco (finding) [facility] Start: 10-24-2022 Sex Assigned At Female F [facility] Start: 09-19-2022 Tobacco use and exposure Smokeless tobacco non-user [facility] Start: 10-24-2022 History of Social function [facility] Start: 1950 Sex Assigned At Not on file [facility] Start: 1950 Sex Assigned At Female F [facility] Functional Status Date Assessment Result Facility 12-20-2022 Functional Status No [facility] 12-20-2022 Functional Status [facility] 12-19-2022 Functional Status N/A [facility] 12-17-2022 Functional Status N/A [facility] 11-02-2022 Functional Status N/A [facility] 11-01-2022 Functional Status [facility] Clinical Notes 07-11-2021 to 01-30-2023 Note Date & Type Note Facility 01-30-2023 Hospital Discharg e instructions Follow Up Care 01/30/2023 15:16:04 With:Senthil Caldera Address: [facility] [place] [address]- [phone] Fax Business (1) When: Unknown Comments:f/u in 6 wks. pet/ct in [facility] soon. f/u after. cbc, cmp, iron studies, b12, foalte, epo, [id number] prior to f/u. [facility] 12-23-2022 Evaluation + Plan note Extrac yajaira from: Title:Discharge Note Author:Zaheer Sloan DO Date:12/23/22 Discharge To, Anticipated II - [facility] Transported by, Anticipated - Wheelchair van [...] When Contact Information Azar HANKS, Rickey Lynn, [facility] [address] [place] [address]- Additional Instructions: Antibiotic Medicine, Adult, Ojdt-zb-Xwrv Extracted from: Title:APSO Note Author:Zaheer Sloan DO [...] history of malignant neoplasm of breast) Continue ardensreno Patient follows with Dr. Hernandez as outpatient [...] from: Title:APSO Note Author:Zaheer Sloan DO Devante e:12/21/22 1. UTI (urinary tract infect ion) (N39.0: Urinary tract infection, site not specified) Urine culture positive for E. coli, pansensitive We will continue Keflex as patient tolerated in the past We will continue to monitor for signs of improvement Ordered: Initial Hospital Care/Day Moderate 55 Minutes 10749 Sbsq Hospital Care/Day Straight Fwd 25 Minutes 42230 2. Age-related cognitive decline (R41.81: Age-related cognitive decline) PT/OT Monitor labs IV fluids Likely will need placement as it was already attempted by nurse at Dr. Askew's office 3. History of breast cancer (Z85.3: Personal history of malignant neoplasm of breast) Continue damon Patient follows with Dr. Hernandez as outpatient [...] Zaheer Arriaga M.D. 12/20/22 16:16:58 Radiation Dose: Buzzr in mGy = na DAP = na Signed By: Zaheer Arriaga M.D. 1. UTI (urinary tract infection) (N39.0: Urinary tract infection, site not specified) Urine culture from last night's visit growing greater than 100,000 gram-negative glynn packager or packer and weigher's Continue antibiotics, will continue keflex due to pts hx of PNC allergy and allready took keflex Wait for culture sensitivities Ordered: Initial Hospital Care/Day Moderate 55 Minutes 34697 2. Age-related cognitive decline (R41.81: Age-related cognitive [...] Panel 10/25/22 * Comprehensive Metabolic Panel 11/22/22 [facility]09-03-2023 NoteSelect [facility], BeachwoodComment on above:Result Comment: Electronically Signed By: Zaheer Sloan DO\.br\Date and Time Signed: 12/23/22 09:49 [id number] Hospital Discharge instructions Patient Education 12/23/2022 09:48:15 Antibiotic Medicine, Adult, Yhfu-yn-Hhbw Antibiotic Medicine, Adult Antibiotic medicines treat infections [...] medicine. Follow these instructions at home: Take wvvj-lbo-cimxdzn and prescription medicines as told by your [...] provider. Document Revised: 01/26/2020 Document Reviewed: 01/26/2020 [employer] Patient Education 2022 [employer]. Follow Up Care 12/20/2022 15:04:36 With:Azar HANKS, Rickey Lynn, NIKOLE Address: [address] [place] [address]- When: Unknown [facility]08-31-2023 NoteFishSaint Luke InstituteComment on above:Result Comment: Electronically Signed By: Zaheer Sloan DO.br\Date and Time Signed: 12/20/22:18 [id number] Evaluation + Plan note Extracted from: Title:ED Note Author:David Tong MD Date: 1. Generalized weakness (R53 .1: Weakness) 2. Frequent falls (R29.6: Repeated falls) 3. Anemia (D64.9: Anemia, unspecified) 4. Dehydration (E86.0: Dehydration) 5. Urinary tract infection (N39.0: Urinary tract infection, site not specified) Orders: cephalexin, 500 mg = 1 cap(s), Oral, QID, X 7 day(s), # 28 cap(s), Refills(s) 0, Pharmacy: [facility], 167.6, cm, 12/19/22 20:43:00 EDT, Height/Length [...] Panel 10/25/22 * Comprehensive Metabolic Panel 11/22/22 [facility]08-31-2023 Hospital Discharge instructions Patient Education 12/20/2022 00:37:19 Urinary Tract Infection, Adult, Buii-uy-Osqg Urinary Tract Infection, Adult A urinary tract [...] Follow these instructions at home: Medicines Take lvak-byd-jmlejef and prescription medicines only as told by [...] provider. Document Revised: 11/18/2020 Document Reviewed: 11/18/2020 [employer] Patient Education 2022 [employer]. 12/20/2022 00:37:19 Anemia Anemia Anemia is a [...] spleen. Follow these instructions at home: Take odoz-tlc-yhpbpks and prescription medicines only as told by [...] provider. Document Revised: 02/20/2022 Document Reviewed: 03/15/2020 [employer] Patient Education 2022 [employer]. 12/20/2022 00:37:19 Dehydration, Adult, Lgsy-hv-Cjcu Dehydration, Adult Dehydration is condition in which [...] of fat or sugar. General instructions Take zhxq-uep-stvtogi and prescription medicines only as told by [...] start slowly drinking other clear fluids. Take fqjt-vlg-ojzuubs and prescription medicines only as told by your doctor. Get help right away if you have any symptoms of very bad dehydration. This information is not intended to replace advice given to you by your health care provider. Make sure you discuss any questions you have with your health care provider. Document Revised: 11/19/2019 Document Reviewed: 11/19/2019 [employer] Patient Education 2022 [employer]. Follow Up Care 12/19/2022 20:39:35 With:Rickey Askew Address: [address] [place] [phone] Business (1) When:12/21/2022 [facility]08-28-2023 Hospital Discharge instructions Patient Education 12/17/2022 13:33:49 [...] Follow these instructions at home: Medicines Take nkuq-trz-lnlpmup and prescription medicines only as told by [...] as fried or sweet foods. ?Take an jbeb-klb-deybrbn or prescription medicine for constipation. If you [...] provider. Document Revised: 02/05/2022 Document Reviewed: 02/05/2022 [employer] Patient Education 2022 [employer] Follow Up Care 12/17/2022 10:20:15 With:JOSÉ ANTONIO VARGAS Address: [address] [address]- Business (1) When:12/20/2022 12:53:13 With:Gavino Erickson Address: [address] [place] [address]- Business (1) When:12/20/2022 12:52:03 With:Rickey Askew Address: [address] [place] [address]- Business (1) When:12/20/2022 12:51:59 [facility]08-28-2023 Evaluation + Plan noteExtracted from: Title:ED Note Author:Gui Scruggs PA-C te:12/17/22 Fall (W19.XXXA: Unspecified fall, initial encounter) Lumbar compression fracture (S32.000A: Wedge compression fracture of unspecified lumbar vertebra, initial encounter for closed fracture) Ordered: oxycodone, 5 mg = 1 tab(s), Oral, q6hr, X 3 day(s), # 15 tab(s), Refills(s) 0, Pharmacy: [facility], 168, cm, 12/17/22 10:29:00 EDT, Height/Length [...] Panel 10/25/22 * Comprehensive Metabolic Panel 11/22/22 [facility]07-16-2023 NoteFisher R Adams Cowley Shock Trauma CenterComment on above:Result Comment: Electronically Signed By: Trevor HANKS, Wyatt\.br\Date and Time Signed: 11/04/22 12:37 [id number] Hospital Discharge instructions Patient Education 11/04/2022 12:28:31 [...] working with a physical therapist or animal trainer supervisor who can develop an exercise plan to help you gain muscle strength. General instructions Take zcnf-qtp-wxcsqlx and prescription medicines only as told by [...] provider. Document Revised: 03/11/2022 Document Reviewed: 03/11/2022 [employer] Patient Education 2022 [employer]. Follow Up Care 11/01/2022 19:54:24 With:Hollis MERRILL Address: [address] [place] [phone] Business (1) When: Unknown Comments:Urinary retnetion w/dooley With:Gavino Erickson Address: [address] [place] [address] Business (1) When: Unknown Comments:Call for followup appointment in 4 weeks for repeat pelvis xray With:Rickey Askew Address: [address] [place] [address]- Business (1) When: Unknown [facility]07-16-2023 Evaluation + Plan noteExtracted from: Title:Discharge Note Author:Trevor HANKS, Wyatt Lynn ate:11/04/22 Stable Discharge To, Anticipated II - [facility] Discharge Diet(s): Regular (11/02/22 15:25:00) Prescriptions anastrozole 1 mg Tab, 1 mg= 1 tab(s), Oral, Daily, 11 refills Arimidex 1 mg Tab, 1 mg= 1 tab(s), Oral, Daily, 3 refills ergocalciferol 50,000 intl units Cap, 75610 International_Unit= 1 cap(s), Oral, q7day Kisqali (200 [...] bedtime) With When Contact Information Gavino Erickson [address] [place], [place] [address] (1) Additional Instructions: Call for followup appointment in 4 weeks for repeat pelvis xray Rickey Askew In 0 days [address] [employer] (1) Additional Instructions: Addendum by Trevor HANKS, [facility] ad on November 04, 2022 12:36:52 [...] deep vein thrombosis (DVT) prophylaxis (Z79.899: Other intermediate (current) drug therapy) SCD, enoxaparin Orders: acetaminophen, [...] Panel 10/25/22 * Comprehensive Metabolic Panel 11/22/22 [facility]07-14-2023 NotePT Evaluation done this date. Pt. with 12/13 on AM-PAC this date. She is very resistant to movement due to pain. She is unable to stand even with attempts of max A. Will benefit from SNF.[facility]07-14-2023 NoteFisher R Adams Cowley Shock Trauma CenterComment on above: Result Comment: Electronically Signed By: Mariia LOPEZ DO\.johnnie\Date and Time Signed: 11/02/22 01:35 [id number] Hospital Discharge instructions Follow Up Care 09/27/2022 14:06:46 With:Senthil Caldera Address: [facility] [address] [place] [address] [phone] Fax Business (1) When: Unknown Comments:f/u in 3 months. pet/ct prior to f/u. cont arimidex and kisquali. cbc, cmp and [id number] monthly. [facility]02-15-2023 Hospital Discharge instructions Follow Up Care 06/06/2022 13:40:28 With:Senthil Caldera Address: [address] [phone] Fax Business (1) When: Unknown Comments:cbc, cmp, [id number] in 4 weeks and prior to f/u in 8 weeks. f/u with computer aided design designer. iron studies, b12, folate with next labs. [facility]12-07-2022 Hospital Discharge instructions Follow Up Care 03/28/2022 14:49:31 With:Senthil Caldera Address: [address] [place] [phone]- [phone] Fax Business (1) When: Unknown Comments:f/u in 2 months. pet/ct prior to f/ucbc, cmp, [id number], every 6 weeks. [facility]09-29-2022 Hospital Discharge instructions Follow Up Care 01/18/2022 14:52:57 With:Senthil Caldera Address: [address] [phone] Fax Business (1) When: Unknown Comments:raise kisquali to 400mg for 3wks on and 1 week off. f/u with or anthony in 2 months. cbc, cmp, [id number] prior to f/ucbc, cmp monthly onthis medicaztion cont arimidex. [facility]09-01-2022 Hospital Discharge instructions Follow Up Care 12/21/2021 14:19:38 With:Senthil Caldera Address: [address] [place] [address]- [phone] Fax Business (1) When: Unknown Comments:continue Kisqali 200mg 3wks on, 1wk offcbc, cmp in 4wks and 8wksPET scan in Novfollow-up in 8wks with Dr. Hernandez after PET scan [facility]08-11-2022 Hospital Discharge instructions Follow Up Care 11/30/2021 13:55:25 With:Senthil Caldera Address: [place] [address] [place] [phone] Fax Business (1) When: Unknown Comments:re-start kisqali at 200mg daily x 3 weeks, then 1 week offcmp weekly x 4wksfollow-up with Dr. Hernandez in 4wkscbc, cmp at follow-up [facility]07-14-2022 Hospital Discharge instructions Follow Up Care 11/02/2021 12:27:30 With:Senthil Caldera Address: [place] [address] [place] [address]- [phone] Fax Business (1) When: Unknown Comments:cont arimidex. Hold kisquali for 3 wks, recheck cbc, cmp, prior to f/u. hold lasix. Send this note to Dr. Kofi sumner. [facility]06-16-2022 Hospital Discharge instructions Follow Up Care 10/05/2021 14:21:47 With:Senthil Caldera Address: [place] [address] [place] [phone] Fax Business (1) When: Unknown Comments:continue kisqalifollow-up in 1mocbc, cmp at follow-up [facility]05-19-2022 Hospital Discharge instructions Follow Up Care 09/07/2021 13:41:37 With:Senthil Caldera Address[address] [facility] [place] [phone] Fax Business (1) When: Unknown Comments:continue Kisqali follow-up in 1 mocbc, cmp, [id number] at follow-up [facility]05-15-2022 Evaluation + Plan noteExtracted from: Title:ED Note [...] Location:FT.ONCOLOGY Appointment Type:ONC Office Visit 15 (FT) [facility]05-15-2022 Hospital Discharge instructions Patient Education 09/03/2021 00:46:59 [...] instructions at home: Medicines Take and apply ulxt-nda-nzxuqsq and prescription medicines only as told by [...] what causes your hives. Take and apply zizg-fie-xwitghk and prescription medicines only as told by your health care provider. Keep all follow-up visits as told by your health care provider. This is important. This information is not intended to replace advice given to you by your health care provider. Make sure you discuss any questions you have with your health care provider. Document Released: 04/08/2006 Document Revised: 10/22/2018 Document Reviewed: 10/22/2018 [employer] Patient Education 2020 [employer]. Follow Up Care 09/03/2021 00:14:38 With:Rickey Askew Address: [place] [address]- Business (1) When:Within 3 Day(s) [facility]04-21-2022 Hospital Discharge instructions Follow Up Care 08/10/2021 13:38:09 With:Nohemi Garcia Address: [facility] [address] [place] [address]- [phone] Business (1) When: Unknown Comments:f/u 1 monthcont ivette.cbc, cmp, [id number] at f/u. With:Senthil Caldera Address: [facility] [address] [place] [phone] Fax Business (1) When: Unknown [facility]04-05-2022 Hospital Discharge instructions Follow Up Care 07/25/2021 15:46:11 With:Senthil Caldera Address: [place] [address] [place] [phone] Fax Business (1) When: Unknown Comments:f/u in 2 wks, cbc, cmp, [id number] at f/u. [facility]03-22-2022 Hospital Discharge instructions Follow Up Care 07/11/2021 14:05:16 With:Senthil Caldera Address: [place] [address] [place] [phone] Fax Business (1) When: Unknown Comments:echo and port sooni will call Dr. Tabor. f/u with me in 2 wks plan AC. Cbc, cmp, ceapet/ct prior to f/u. [facility] note Future Appointments Appointment Date:07/18/2021 12:00:00 PM Scheduled Provider:Senthil Caldera DO Location:.ONCOLOGY Appointment Type:ONC Office Visit New 45 (FT) [facility] General Surgery [place] Evaluation + Plan note Future Appointments Appointment Date:08/08/2021 10:00:00 AM Scheduled Provider: Location:.ULTRASOUND Appointment Type:US Breast (FT) Appointment Date:08/09/2021 10:30:00 AM Scheduled Provider: Location:[facility] Appointment Type:Surgical PAT FT Appointment Date:08/10/2021 12:30:00 PM Scheduled Provider:Senthil Caldera DO Location:.ONCOLOGY Appointment Type:ONC Office Visit 15 (FT) Appointment Date:08/17/2021 08:00:00 AM Scheduled Provider: Location:[facility] Appointment Type:Surgery FT Appointment Date:08/22/2021 10:20:00 AM Scheduled Provider:Gavino TABOR MD Location:[facility] Appointment Type:GS Post Op 15 Future Scheduled Tests Laboratory* CA 27 29 08/09/21 * CBC w/ Auto Diff 08/09/21 * CBC w/ Auto Diff 07/26/21 * CEA 07/26/21 * Comprehensive Metabolic Panel 08/09/21 * Comprehensive Metabolic Panel 07/26/21 Radiology* US Perc Biopsy Lymph Node 08/08/21 [facility] Future Appointments Appointment Date:08/10/2021 12:30:00 PM Scheduled Provider:Senthil Caldera DO Location:FT.ONCOLOGY Appointment Type:ONC Office Visit 15 (FT) Diagnostic Tests Pending * CA 27 29 08/07/21 Future Scheduled Tests Laboratory* CBC w/ Auto Diff 07/26/21 * CEA 07/26/21 * Comprehensive Metabolic Panel 07/26/21 [facility] Future Appointments Appointment Date:08/10/2021 12:30:00 PM Scheduled Provider:Senthil Caldera DO Location:.ONCOLOGY Appointment Type:ONC Office Visit 15 (FT) Future Scheduled Tests Laboratory* CBC w/ Auto Diff 07/26/21 * CEA 07/26/21 * Comprehensive Metabolic Panel 07/26/21 [facility] Future Appointments Appointment Date:09/07/2021 12:30:00 PM Scheduled Provider:Senthil Caldera DO Location:.ONCOLOGY Appointment Type:ONC Office Visit 15 (FT) Future Scheduled Tests Laboratory* CBC w/ Auto Diff 08/24/21 * CEA 08/24/21 * Comprehensive Metabolic Panel 08/24/21 [facility] Future Appointments Appointment Date:08/21/2021 02:00:00 PM Scheduled Provider: Location:FT.ONCOLOGY Appointment Type:ONC Patient Education - 1hr (FT) Appointment Date:09/07/2021 12:30:00 PM Scheduled Provider:Senthil Caldera DO Location:FT.ONCOLOGY Appointment Type:ONC Office Visit 15 (FT) Future Scheduled Tests Laboratory* CBC w/ Auto Diff 09/07/21 * CEA 09/07/21 * Comprehensive Metabolic Panel 09/07/21 [facility] Future Appointments Appointment Date:09/07/2021 12:30:00 PM Scheduled Provider:Senthil Caldera DO Location:.ONCOLOGY Appointment Type:ONC Office [facility] (FT[facility]ments Appointment Date:10/05/2021 01:30:00 PM Scheduled Provider:Senthil Caldera DO Location:FT.ONCOLOGY Appointment Type:ONC Office Visit 15 (FT) Future Scheduled Tests Laboratory* CA 27 29 10/08/21 * CBC w/ Auto Diff 10/08/21 * Comprehensive Metabolic Panel 10/08/21 [facility] Future Appointments Appointment Date:10/05/2021 01:30:00 PM Scheduled Provider:Senthil Caldera DO Location:FT.ONCOLOGY Appointment Type:ONC Office Visit 15 (FT) Diagnostic Tests Pending * CA 27 29 10/02/21 [facility] Future Appointments Appointment Date:11/02/2021 01:45:00 PM Scheduled Provider:Senthil Caldera DO Location:FT.ONCOLOGY Appointment Type:ONC Office Visit 15 (FT) Future Scheduled Tests Laboratory* CA 27 29 11/02/21 * CBC w/ Auto Diff 11/02/21 * Comprehensive Metabolic Panel 11/02/21 [facility] Future Appointments Appointment Date:11/02/2021 11:15:00 AM Scheduled Provider:Nohemi Garland Location:FT.ONCOLOGY Appointment Type:ONC Office Visit 15 (FT) Diagnostic Tests Pending * CA 27 29 11/01/21 [facility] Future Appointments Appointment Date:11/30/2021 01:15:00 PM Scheduled Provider:Senthil Caldera DO Location:FT.ONCOLOGY Appointment Type:ONC Office Visit 15 (FT) Future Scheduled Tests Laboratory* CBC w/ Auto Diff 12/03/21 * Comprehensive Metabolic Panel 12/03/21 [facility] Future Appointments Appointment Date:11/30/2021 01:15:00 PM Scheduled Provider:Senthil Caldera DO Location:FT.ONCOLOGY Appointment Type:ONC Office Visit 15 (FT) [facility] Future Appointments Appointment Date:12/21/2021 01:15:00 PM Scheduled Provider:Senthil Caldera DO Location:FT.ONCOLOGY Appointment Type:ONC Office Visit 15 (FT) Future Scheduled Tests Laboratory* CBC w/ Auto Diff 12/21/21 * Comprehensive Metabolic Panel 12/21/21 [facility] Future Appointments Appointment Date:01/18/2022 02:15:00 PM Scheduled Provider:Senthil Caldera DO [facility] Type:[facility]C Office Visit 15 [...] Panel 01/18/22 * Comprehensive Metabolic Panel 01/25/22 [facility] Future Appointments Appointment Date:01/18/2022 02:15:00 PM Scheduled Provider:Senthil Caldera DO [facility] Type:ONC Office Visit 15 (FT) Future Scheduled Tests Laboratory* CBC w/ Auto Diff 01/04/22 * CBC w/ Auto Diff 01/11/22 * CBC w/ Auto Diff 01/18/22 * CBC w/ Auto Diff 01/25/22 * Comprehensive Metabolic Panel 01/04/22 * Comprehensive Metabolic Panel 01/11/22 * Comprehensive Metabolic Panel 01/18/22 * Comprehensive Metabolic Panel 01/25/22 [facility] Future Appointments Appointment Date:03/28/2022 02:15:00 PM Scheduled Provider:Senthil Caldera DO [facility] Type:ONC Office Visit 15 (FT) Future Scheduled Tests Laboratory* CBC w/ Auto Diff 01/23/22 * CBC w/ Auto Diff 01/30/22 * CBC w/ Auto Diff 02/06/22 * CBC w/ Auto Diff 02/13/22 * Comprehensive Metabolic Panel 01/23/22 * Comprehensive Metabolic Panel 01/30/22 * Comprehensive Metabolic Panel 02/06/22 * Comprehensive Metabolic Panel 02/13/22 [facility] Future Appointments Appointment Date:03/28/2022 02:15:00 PM Scheduled Provider:Senthil Caldera DO Location:FT.ONCOLOGY Appointment Type:ONC Office Visit 15 (FT) Future Scheduled Tests Laboratory* CBC w/ Auto Diff 03/08/22 * CBC w/ Auto Diff 04/05/22 * Comprehensive Metabolic Panel 03/08/22 * Comprehensive Metabolic Panel 04/05/22 [facility] Future Appointments Appointment Date:06/06/2022 01:15:00 PM Scheduled Provider:Senthil Caldera DO Location:FT.ONCOLOGY Appointment Type:ONC Office Visit 15 (FT) [facility] Future Appointments Appointment Date:08/01/2022 02:00:00 PM Scheduled Provider:Senthil Caldera DO Location:FT.ONCOLOGY Appointment Type:ONC Office Visit 15 (FT) Future Scheduled Tests Laboratory* CBC w/ Auto Diff 06/06/22 * Comprehensive Metabolic Panel 06/06/22 [facility] Future Appointments Appointment Date:08/01/2022 02:00:00 PM Scheduled Provider:Senthil Caldera DO Location:FT.ONCOLOGY Appointment Type:ONC Office Visit 15 (FT) Diagnostic Tests Pending * CA 27 29 07/09/22 Future Scheduled Tests Laboratory* CA 27 29 07/31/22 * CBC w/ Auto Diff 07/31/22 * Comprehensive Metabolic Panel 07/31/22 [facility] Future Appointments Appointment Date:08/01/2022 02:00:00 PM Scheduled Provider:Senthil Caldera DO Location:FT.ONCOLOGY Appointment Type:ONC Office Visit 15 (FT) Diagnostic Tests Pending * CA 27 29 07/30/22 [facility] Future Appointments Appointment Date:09/27/2022 [...] Transferrin 08/29/22 * Vitamin B12 Level 08/29/22 [facility] Future Appointments Appointment Date:09/27/2022 01:45:00 PM Scheduled Provider:Nohemi Garland Location:FT.ONCOLOGY Appointment Type:ONC Office Visit 30 (FT) Diagnostic Tests Pending * CA 27 29 09/25/22 [facility] Future Appointments Appointment Date:11/22/2022 02:15:00 PM Scheduled Provider:Senthil Caldera DO Location:FT.ONCOLOGY Appointment Type:ONC Office Visit 15 (FT) Future Scheduled Tests Laboratory* CA 27 29 10/25/22 * CA 27 29 11/22/22 * CBC w/ Auto Diff 10/25/22 * CBC w/ Auto Diff 11/22/22 * Comprehensive Metabolic Panel 10/25/22 * Comprehensive Metabolic Panel 11/22/22 [facility] note Future Appointments Appointment Date:12/26/2022 02:45:00 PM Scheduled Provider:Senthil Caldera DO Location:[facility] Appointment Type:ONC Office Visit 15 ([facility]) Future Scheduled Tests Laboratory* CA 27 29 10/25/22 * CA 27 29 11/22/22 * CBC w/ Auto Diff 10/25/22 * CBC w/ Auto Diff 11/22/22 * Comprehensive Metabolic Panel 10/25/22 * Comprehensive Metabolic Panel 11/22/22 [facility] Evaluation + Plan note Future Appointments Appointment [...] Panel 04/01/23 * [facility] Future [facility]ments Appointment Date:06/12/2023 [...] Panel 04/01/23 * Comprehensive Metabolic [facility] Work Phone: Hospital course Narrative No data available for this section [facility] General Surgery [facility] Discharge instructions No data available for this section [facility] [place] [facility] note No data available for this section [facility] Summary Purpose Family History No Family History [...] section and content) DATE CREATED AUTHOR 09/08/2021 [facility] DATE CREATED AUTHOR AUTHOR'S ORGANIZ ATION 06/08/2023 [facility] DATE CREATED AUTHOR AUTHOR'S ORGANIZ ATION 06/08/2023 [facility] Care Team (unrecognized sect ion and content) Interventional Physician Relationship Specialty Start Date End Date Rickey Askew MD [address] [place] [address] PCP - Devoted 06/20/22 Rickey Askew MD [address] [place] [address] PCP - General Family Medicine 09/19/22 Team Status: Active Member Role Status Dates Mary Rodriguez MD Primary Care Provider Active Team Status: Inactive Member Role Status Dates Senthil Caldera II, DO Attending Provider Active Start: May 31, [...] BE BASED ON THE PRIMARY CLINICAL RECORDS. [employer] [facility]. provides no warranty or guarantee of the accuracy or completeness of information in this document.
== END 2023-06-19 06:32 | disposition home or self-care (01) ==
LOC: LAB 06:31
PROVIDERS: PCP Family Medicine; Visit Provider Family Medicine
DX: Z51.81 Encounter for therapeutic drug level monitoring (principal)
CPT/HCPCS: 36415; 82607

== ENCOUNTER 2023-07-01 01:21 | Outpatient (REF) | payer OTHER, SELFPAY ==
--- OUTSIDE RECORDS SUMMARY | 2023-07-01 01:25 | XMS_ITS | CCD ---
Author Name Unknown Address [address] [place] [address] Organization [facility] Care Team Providers Care Flight Surveyor Name Role Phone Rickey Askew Primary Care Physician [phone] Eva Beard Unavailable Unavailable Rickey Askew MD Unavailable Rickey Askew MD Primary Care Provider [phone] Verenice II, DO Senthil Zapata Attending Provider MD Mary Rodriguez Primary Care Provider Mary Rodriguez Primary Care Unavailable Verenice MAZA, Senthil Zapata Attending Unavaila ble Verenice II, Senthil Zapata Admitting Unavaila ble Adamowicz, Senthil Attending Unavailable Mgowicz, Senthil Referring Unavailable Adamowicz, DO Senthil Admitting Unavailabl e Laishaicz, Senthil Attending Unavailable Mgowicz, Senthil Admitting Unavailable Adamowicz, Senthil Attending Unavailable Mgowicz, Senthil Admitting Unavailable Nohemi Garcia Attending Unavailable Sammy QUEZADA Attending Unavailable Adamowicz, Senthil Attending Unavailable Adamowicz, Senthil Admitting Unavailable Adamowicz, Senthil Attending Unavailable Mgowflaquito, Senthil Admitting Unavailable Zaheer Sloan Admitting Unavailable Zaheer Sloan Attending Unavailable Wyatt Murray Attending Unavailable Mariia LOPEZ Admitting Unavailable Gavino Erickson Consulting Unavailable Georgina, DO Gavino Alfonso Consulting Unavailable Christiano Rojo Consulting Unavailable Erickson, Gavino T Consulting Unavailable Erickson, Gavino T Consulting Unavailable Erickson, Gavino T Consulting Unavailable Erickson, Gavino T Consulting Unavailable Erickson, Gavino T Consulting Unavailable Erickson, Gavino T Consulting Unavailable Erickson, Gavino T Consulting Unavailable Erickson, Gavino T Consulting Unavailable Gavino Erickson Consulting Unavailable Lorie Slater Attending Unavailable PILAR, Sammy Attending Unavailable PILAR, Sammy Attending Unavailable Jeffery Murphy Attending Unavailable Pedro Nava Attending Unavailable David Tong Attending Unavailable Verenice, Senthil Attending Unavailable Verenice, Senthil Attending Unavailable Verenice, Senthil Attending Unavailable Verenice, Senthil Admitting Unavailable Verenice, Senthil Attending Unavailable Allergies Allergy Classification Reported Allergen(s) Allergy Type Date of Onset Reaction(s) Facility (20 sources) Bee/Wasp/Ant venom; Translations: [Bee Stings] Drug allergy Dyspnea (finding) [facility] (20 sources) Penicillins; Translations: [penicillins] Drug allergy 2 Dyspnea (finding), Shortness of breath, Unknown [facility] (20 sources) Sulfonamides (Antibiotic); Translations: [sulfa drugs] Drug allergy Dyspnea (finding) [facility] (3 sources) Penicillin G Drug Allergy 2 [facility] (3 sources) Sulfonamides (Antibiotic) Drug Allergy 3 Shortness of breath [facility] Medications Current Medications Medication Drug Class(es) Dates Sig (Normalized) Sig (Original) acetaminophen 500 mg oral tablet (8 sources) Start: 11-13-2022 take 2 tablets by [...] Ordered busPIRone hydrochloride 5 mg oral tablet (2 sources) Start: 05-01-2023 take 1 tablet by mouth [...] day(s), # 28 cap(s), Refills(s) 0, Pharmacy: [facility], 167.6, cm, 12/19/22 20:43:00 EDT, Height/Length [...] Ordered docusate sodium 100 mg oral tablet (2 sources) Start: 05-01-2023 take 100 mg by mouth [...] 0 Start Date: 09/07/21 Status: Ordered Claritin (2 sources) Start: 05-01-2023 Claritin 10 mg, Refills(s) 0 Start Date: 05/01/23 Status: Ordered melatonin 5 mg oral tablet (8 sources) Start: 11-13-2022 take 1 tablet by [...] Nausea, # 30 tab(s), Refills(s) 3, Pharmacy: [facility], 162.5, cm, 08/10/21 12:38:00 EDT, Height/Length [...] for severe pain. 0 12/17/2022 Active Miralax (2 sources) Osmotic Laxative Start: 05-01-2023 take 17 g by mouth once daily MiraLax 17 gm, Oral, Daily, Refill(s) 0 Start Date: 05/01/23 Status: Ordered {42 (ribociclib 200 MG Oral Tablet [Kisqali]) } Pack [Kisqali 400 MG Daily Dose Carton] (20 sources) Start: 05-30-2023 End: 02-27-2024 Kisqali (400 mg daily dose) oral tablet 400 mg = 2 tab(s), Oral, Daily, 21 DAYS ON THEN 7 DAYS OFF 400 MG DAILY DOSE, X 21 day(s), # 42 tab(s), Refills(s) 12, Pharmacy: [id number], 167.6, cm, 05/01/23 14:05:00 EST, Height/Length Dosing, 86.7, kg, 12/20/22 15:11:00 EDT, Weight Dosing Start Date: 05/30/23 Stop Date: 02/27/24 Status: Ordered Start: 05-09-2022 Kisqali (200 m g daily dose) oral tablet See Instructions, 2 [...] Ordered traMADol hydrochloride 50 mg oral tablet (2 sources) Opioid Agonist Start: 05-01-2023 take 50 mg [...] 09/27/2022 Active Vitamin B12 1000 mcg Tab (11 sources) Start: 09-27-2022 take 1 tablet by mouth once daily Vitamin B12 1000 mcg Tab 1,000 mcg = 1 tab(s), Oral, Daily, # 30 tab(s), Refills(s) 11, Pharmacy: [facility], 162, cm, 09/08/22 15:14:00 EDT, Height/Length Dosing, 96.4, kg, 09/27/22 13:43:00 EDT, Weight Dosing Start Date: 09/27/22 Status: Ordered Vitamin D3 2000 intl units oral tablet (8 sources) Start: 12-14-2022 take 1 tablet by mouth once daily Vitamin D3 2000 intl units oral tablet 50 mcg = 1 tab(s), Oral, Daily, # 90 tab(s), Refills(s) 4, Pharmacy: [facility], 167, cm, 11/01/22 20:02:00 EDT, Height/Length [...] daily, # 7 cap(s), Refills(s) 0, Pharmacy: [facility], 167, cm, 11/01/22 20:02:00 EDT, Height/Length Dosing, 90.3, kg, 11/01/22 20:02:00 EDT, Weight Dosing Start Date: 11/04/22 Status: Ordered Start: 11-04-2022 ergocalciferol 50,000 intl units Cap 50,000 International_Unit = 1 cap(s), Oral, q7day, # 7 cap(s), Refills(s) 0, Pharmacy: [facility], 167, cm, 11/01/22 20:02:00 EDT, Height/Length [...] breast] Onset: 07-11-2021 Chronic Cancer of breast (12 sources) Personal history of malignant neoplasm of breast; Translations: [History of malignant neoplasm of breast] Onset: 11-02-2022 Episodic Cancer of colon (4 sources) Malignant tumor of colon; Translations: [Malignant neoplasm of colon, unspecified] Onset: 10-24-2022 Chronic Deficiency and other anemia (1 source) Anemia; Translations: [Anemia, unspecified] Onset: 12-19-2022 Episodic Delirium, dementia, and amnestic and other cognitive disorders (10 sources) Age-related cognitive decline; Translations: [Age-related cognitive [...] Onset: 12-19-2022 Episodic Lymphadenitis (20 sources) Axillary lymphadenopathy; Translations: [Localized enlarged lymph nodes] Onset: 10-24-2022 07-25-2021 Episodic Malaise and fatigue (2 sources) Asthenia; Translations: [Weakness] Onset: 11-02-2022 Episodic Nutritional deficiencies (11 sources) Vitamin D deficiency; Translations: [Vitamin D deficiency, unspecified] Onset: 11-06-2022 Chronic Other aftercare (1 source) Long-term current use of drug therapy; Translations: [Other prison (current) drug therapy] Onset: 11-02-2022 Episodic Other connective tissue disease (2 sources) Recurrent falls ; Translations: [Repeated falls] Onset: 11-02-2022 Episodic Other fractures (9 sources) Multiple pelvic fractures; Translations: [Multiple fractures [...] unspecified] Onset: 10-24-2022 10-24-2022 Chronic Pathological fracture (11 sources) H/O: fragility fracture; Translations: [Personal history of (healed) osteoporosis fracture] Onset: 11-06-2022 Episodic Residual codes; unclassified (20 sources) Edema; Translations: [Edema, unspecified] Onset: 03-19-2015 07-03-2021 Episodic Secondary malignancies (1 source) Secondary malignant neoplasm of bone; Translations: [Secondary malignant neoplasm of bone] Onset: 01-30-2023 Chronic Unclassified (1 source) Malignant neoplasm of upper-outer quadrant of right female breast; Translations: [Malignant neoplasm of upper-outer quadrant of right female breast] Onset: 05-31-2023 Past or Other Problems Problem Classification Problem Date Documented Da te Episodic/Chronic Mood disorders (3 sources) Mood disorders Onset: [...] Onset: 09-19-2022 09-19-2022 Episodic Residual codes; unclassified (3 sources) H/O: high risk medication; Translations: [Personal history of other drug therapy] Onset: 03-19-2015 10-24-2022 Episodic Urinary tract infections (3 sources) Urinary tract infectious disease; Translations: [Urinary tract infection, site not specified] Onset: 12-19-2022 Episodic Results Test Name Value Interpretation Reference Range Facility Physician Orderon 06-27-2023 Physician Order [id number]#1.00TIFF [facility] Consent for Treatmenton 05-24 Consent for Treatment [id number]#1.00TIFF [facility] ED Pat Eduon 06-12-2023 ED Pat Edu [facility] ED Pat Edu [facility] ED Pat Edu [facility] Oncology Progress Noteon Oncology Progress Note [facility] Physician Orderon 06-12-2023 Physician Order [id number]#1.00TIFF [facility] Outside [facility] 06-06-2023 Outside Labs [id number]#1.00TIFF Normal [facility] Outside Radiologyon 06-06-19 24 Outside Radiology [id number]#1.00TIFF Normal [facility] ALL CBC WITH AUTO DIFFon BASOPHILS ABSOLUTE AUTO 0.1 N [facility] Basophils/100 WBC (Bld) 1.2 % 0.2 - 2.0 % [facility] Eosinophils/100 WBC (Bld) 3.8 % 0.9 - 7.0 % [facility] Erythrocyte distribution width (RBC) [Ratio] 13.4 % 11.0 - 15.0 % [facility] Hematocrit (Bld) [Volume fraction] 29.4 % Low 36.0 - 48.0 % [facility] Hemoglobin (Bld) [Mass/Vol] 9.4 g/dL Low 12.0 - 16.0 g/dL [facility] IMMATURE GRANULOCYTES ABS AUTO 0.02 [facility] Immature granulocytes/100 WBC (Bld) 0.4 % 0.0 - 0.5 % [facility] Interpretation and review of laboratory results Abnormal [facility] LYMPHOCYTES ABSOLUTE AUTO 1.8 [facility] Lymphocytes/100 WBC (Bld) 35.5 % 20.5 - 60.0 % [facility] MCH (RBC) [Entitic mass] 33.5 pg 26.7 - 34.0 pg [facility] MCHC (RBC) [Mass/Vol] 32.0 g/dL 29.9 - 35.2 g/dL [facility] MCV (RBC) [Entitic vol] 104.6 fL High 81.0 - 99.0 fL [facility] MONOCYTES ABSOLUTE AUTO 0.4 N [facility] Monocytes/100 WBC (Bld) 8.2 % 1.7 - 12.0 % [facility] NEUTROPHILS ABSOLUTE AUTO 2.5 [facility] Neutrophils/100 WBC (Bld) 50.9 % 43.0 - 75.0 % [facility] Platelet mean volume (Bld) [Entitic vol] 9.2 fL Low 9.5 - 13.5 fL [facility] TBH EO # 0.2 [facility] TBH PLT 182 [facility] TBH RBC 2.81 Low [facility] TBH WBC 5.0 [facility] GLUCOSE POCT GLUCOMETERSon 0 05-31-2023 Glucose [Mass/Vol] 110 mg/dL [facility] Comment on above: Random Glucose Refer ence Range is dependent on time and content of last meal. Glucose of more than 200 mg/dL in a nonstressed, ambulatory subject supports the diagnosis of Diabetes Mellitus. [facility] Glucose Glucometer (BldC) [M ass/Vol]Ordered By: Senthil Caldera on 05-31-2023 Glucose [Mass/Vol] 110 mg/dL [facility] Comment on above: Random Glucose Refer ence Range is dependent on time and content of last meal. Glucose of more than 200 mg/dL in a nonstressed, ambulatory subject supports the diagnosis of Diabetes Mellitus. Glucose Poct Glucometerson 0 05-31-2023 Glucose [Mass/Vol] 110 mg/dL Normal [facility] Comment on above: Result Comment: [place] Glucose Reference Range is dependent on time and content of last meal. Glucose of more than 200 mg/dL in a nonstressed, ambulatory subject supports the diagnosis of Diabetes Mellitus. PERFORMED BY: [place] [address] PATHOLOGIST LIGHT EQUIPMENT OPERATOR JERICA JO M.D. Performed By: #### G LULS #### Point of Care testing , PET tumor subq tx strat sb-m ton 05-31-2023 PET tumor subq tx strat sb-mt [facility] [place] [address] [place] [address] Nuclear Medicine Report Signed Patient: Marlen Staley MR#: [id number] 65 : 1950 Acct:[id number] Age/Sex: 72 / F ADM Date: 05/31/23 Loc: Room: Type: [facility] Attending Dr: Senthil Caldera II DO Copies to: Senthil Caldera II, Sammy [...] cavity is present. Although distribution may be admitting representative of asymmetric physiologic uptake, if there [...] Unremarkable ADRE (more content not included)... Normal [facility] ALL CBC WITH AUTO DIFFon BASOPHILS ABSOLUTE AUTO 0.1 N [facility] Basophils/100 WBC (Bld) 2.0 % 0.2 - 2.0 % [facility] Eosinophils/100 WBC (Bld) 3.3 % 0.9 - 7.0 % [facility] Erythrocyte distribution width (RBC) [Ratio] 13.2 % 11.0 - 15.0 % [facility] Hematocrit (Bld) [Volume fraction] 28.4 % Low 36.0 - 48.0 % [facility] Hemoglobin (Bld) [Mass/Vol] 9.2 g/dL Low 12.0 - 16.0 g/dL [facility] IMMATURE GRANULOCYTES ABS AUTO 0.02 [facility] Immature granulocytes/100 WBC (Bld) 0.4 % 0.0 - 0.5 % [facility] Interpretation and review of laboratory results Abnormal [facility] LYMPHOCYTES ABSOLUTE AUTO 2.0 [facility] Lymphocytes/100 WBC (Bld) 43.8 % 20.5 - 60.0 % [facility] MCH (RBC) [Entitic mass] 33.5 pg 26.7 - 34.0 pg [facility] MCHC (RBC) [Mass/Vol] 32.4 g/dL 29.9 - 35.2 g/dL [facility] MCV (RBC) [Entitic vol] 103.3 fL High 81.0 - 99.0 fL [facility] MONOCYTES ABSOLUTE AUTO 0.3 N [facility] Monocytes/100 WBC (Bld) 6.9 % 1.7 - 12.0 % [facility] NEUTROPHILS ABSOLUTE AUTO 2.0 [facility] Neutrophils/100 WBC (Bld) 43.6 % 43.0 - 75.0 % [facility] Platelet mean volume (Bld) [Entitic vol] 9.0 fL Low 9.5 - 13.5 fL [facility] TBH EO # 0.2 [facility] TBH PLT 226 [facility] TBH RBC 2.75 Low [facility] TB WBC 4.5 [facility] Insurance Correspondenceon 0 05-23-2023 Insurance Correspondence [id number]#1.00TIFF Normal [facility] Oncology Noteon 05-20-2023 Oncology Note Normal [facility] Comment on above: Result Comment: Elec tronically Signed By: Jane FARMER, Yolande Houston\.br\Date and Time Signed: 05/20/23 14:48 EST Physician Orderon 05-15-2023 Physician Order [id number]#1.00TIFF Normal [facility] Comment on above: Other Comment: wrong patient Physician Orderon 05-14-2023 Physician Order [id number]#1.00TIFF Normal [facility] 05-02-2023 Outside Labs [id number]#1.00TIFF Normal [facility] Outside Labs [id number]#1.00TIFF Normal [facility] Physician Orderon 05-02-2023 Physician Order [id number]#1.00TIFF Normal [facility] Physician Order [id number]#1.00TIFF Normal [facility] Consent for Treatmenton 04-22 Consent for Treatment [id number]#1.00TIFF Normal [facility] Oncology Noteon 05-01-2023 Oncology Note Normal [facility] Comment on above: Result Comment: Elec tronically Signed By: Magda FARMER, Annia\.br\Date and Time Signed: 05/01/23 15:05 EST Oncology Progress Noteon Oncology Progress Note Normal [facility] 05-01-2023 Outside Labs [id number]#1.00TIFF Normal [facility] ONC - Otheron 02-07-2023 ONC - Other [id number]#1.00TIFF Normal [facility] Physician Orderon 02-05-2023 Physician Order [id number]#1.00TIFF Normal [facility] Consent for Treatmenton 01-20 Consent for Treatment [id number]#1.00TIFF Normal [facility] Oncology Noteon 01-30-2023 Oncology Note Normal [facility] Comment on above: Result Comment: Elec tronically Signed By: Jane FARMER, Yolande Houston\.br\Date and Time Signed: 01/30/23 17:07 EDT Oncology Progress Noteon Oncology Progress Note Normal [facility] 01-29-2023 Outside Labs [id number]#1.00TIF F [facility] Outside Labs [id number]#1.00TIF F [facility] 01-28-2023 Outside Labs [id number]#1.00TIFF [facility] Coding Queryon 01-16-2023 Coding Query [facility] ONC - Otheron 01-16-2023 ONC - Other [id number]#1.00CD:1 27 [facility] ONC - Otheron 01-09-2023 ONC - Other [id number]#1.00CD:1 27 [facility] Discharge Instructionson Discharge Instructions [id number]#1.00CD:1 27 [facility] Transfer Documentson 023 Transfer Documents [id number]#1.00CD:1 27 [facility] CHEMISTRYOrdered By: Lab ROP User on 12-23-2022 Glucose [Mass/Vol] 111 mg/dL High 55 - 99 mg/dL [facility] Subsection Comment on above: Result Comment: Navin BOSE POC Device SN [id number] Invalid Interpretation Code [facility] Subsection POC User ID [id number] Invalid Interpretation Code [facility] Subsection POC Username JUAN HENNESSY Invalid Interpretation Code [facility] Subsection Capillary Glucose POCon Glucose [Mass/Vol] 111 mg/dL High 55-99 [facility] Comment on above: Result Comment: Navin BOSE Performed By: #### 2 [id number] ####[facility] [address] [place] [address] Discharge Note-Nursingon Discharge Note-Nursing [facility] C Urineon 12-22-2022 Bacteria identified Cx Nom (U) Normal [facility] Comment on above: Performed By: #### 1 [id number] ####[facility] [address] [place] [address] CHEMISTRYOrdered By: Lab ROP User on 12-22-2022 Glucose [Mass/Vol] 155 mg/dL High 55 - 99 mg/dL [facility] Subsection Comment on above: Result Comment: Navin BOSE POC Device SN [id number] Invalid Interpretation Code [facility] POC Subsection POC User ID [id number] Invalid Interpretation Code [facility] Subsection POC Username TOM DARRYN Invalid Interpretation Code [facility] Subsection Glucose [Mass/Vol] 129 mg/dL High 55 - 99 mg/dL [facility] Subsection Comment on above: Result Comment: Christine donna Meter POC Device SN [id number] Invalid Interpretation Code FT POC Subsection POC User ID [id number] Invalid Interpretation Code [facility] Subsection POC Username ROOPA LIM Invalid Interpretation Code [facility] Subsection Capillary Glucose POCon Glucose [Mass/Vol] 155 mg/dL High 55-99 [facility] Comment on above: Result Comment: Navin BOSE Performed By: #### 2 [id number] ####[facility] [address] [place] [address] Glucose [Mass/Vol] 129 mg/dL High 55-99 [facility] Comment on above: Result Comment: Christine donna Meter Performed By: #### 2 [id number] ####[facility] [address] [place] [address] Glucose [Mass/Vol] 158 mg/dL High 55-99 [facility] Comment on above: Result Comment: Christine donna Meter Performed By: #### 2 [id number] ####[facility] [address] [place] [address] Glucose [Mass/Vol] 144 mg/dL High 55-99 [facility] Comment on above: Result Comment: Navin BOSE Performed By: #### 2 [id number] ####[facility] [address] [place] [address] 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 Note - Attila e Manageron 12-22-2022 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 Note - Flight Physician Normal [facility] Comment on above: Result Comment: Elec tronically Signed By: Jolanta Stubbs RN\.br\Date and Time Signed: 12/22/22 16:25 EDT Progress Note-Physicianon Progress Note-Physician Normal F [facility] Comment on above: Result Comment: Elec tronically Signed By: Zaheer Sloan DO.br\Date and Time Signed: 12/22/22 09:47 EDT Auto Diffon 12-21-2022 Basophils/100 WBC (Bld) 2.6 % High 0.0-2.0 F [facility] Comment on above: Order Comment: Order Added by Discern Expert. Performed By: #### 2 [id number], [id number], [id number], [id number], [id number] ####[facility] [address] [place] [address] Basophils/Leukocytes Auto (Bld) [Pure # fraction] 0.1 E9/L Normal 0.0-0.2 [facility] Comment on above: Order Comment: Order Added by Discern Expert. Performed By: #### 2 [id number], [id number], [id number], [id number], [id number] ####[facility] [address] [place] [address] Eosinophils/100 WBC (Bld) 2.5 % Normal 0.0-8.0 [facility] Comment on above: Order Comment: Order Added by Discern Expert. Performed By: #### 2 [id number], [id number], [id number], 9968872, [id number] ####[facility] [address] [place] [address] Eosinophils/Leukocytes Auto (Bld) [Pure # fraction] 0.1 E9/L Normal 0.0-0.5 [facility] Comment on above: Order Comment: Order Added by Discern Expert. Performed By: #### 2 778857, [id number], [id number], [id number], [id number] ####[facility] [address] [place] [address] Lymphocytes/100 WBC (Bld) 42.1 % Normal 14.0-50.0 [facility] Comment on above: Order Comment: Order Added by Discern Expert. Performed By: #### 2 548486, [id number], [id number], 9763480, 9046682 ####[facility] [address] [place] [address] Lymphocytes/Leukocytes Auto (Bld) [Pure # fraction] 1.4 E9/L Normal 1.0-4.0 [facility] Comment on above: Order Comment: Order Added by Discern Expert. Performed By: #### 2 [id number], [id number], [id number], 1274909, [id number] ####[address] [address] Monocytes/100 WBC (Bld) 13.6 % Normal 4.0-14.0 [facility] Comment on above: Order Comment: Order Added by Discern Expert. Performed By: #### 2 403008, [id number], [id number], 1647910, 5791175 ####[address] [place] [address] Monocytes/Leukocytes Auto (Bld) [Pure # fraction] 0.4 E9/L Normal 0.2-1.0 [facility] Comment on above: Order Comment: Order Added by Discern Expert. Performed By: #### 2 134853, [id number], [id number], 6407284, 1446936 ####[facility] [address] [place] [address] Neutrophils/100 WBC (Bld) 39.2 % Normal 36.0-75.0 [facility] Comment on above: Order Comment: Order Added by Discern Expert. Performed By: #### 2 649751, [id number], 87362554, 8316666, 7123430 ####[address] [place] [address] Neutrophils/Leukocytes Auto (Bld) [Pure # fraction] 1.3 E9/L Low 2.0-7.5 [facility] Comment on above: Order Comment: Order Added by Discern Expert. Performed By: #### 2 949595, 184985301, 96804597, 6113439, 6022882 ####[facility] [address] [place] [address] BMPon 12-21-2022 Anion gap [Moles/Vol] 11 mmol/L Normal 6-16 [facility] Comment on above: Performed By: #### 2 102179, 573417541, 64962128, 5192988, 2235857 ####[facility] [address] [place] [address] Calcium [Mass/Vol] 8.9 mg/dL Normal 8.9-11.1 [facility] Comment on above: Performed By: #### 2 266030, 551923256, 39765603, 3217604, 4496639 ####[facility] [address] [place] [address] Chloride [Moles/Vol] 112 mmol/L High 101-111 Fish [facility] Comment on above: Performed By: #### 2 898696, 727555316, 38388878, 8484499, 9691718 ####[facility] [address] [place] [address] CO2 [Moles/Vol] 22 mmol/L Normal 21-31 [facility] Comment on above: Performed By: #### 2 133512, 772588612, 91442842, 6612568, 9168083 ####[facility] [address] [place] [address] Creatinine [Mass/Vol] 1.4 mg/dL High 0.5-1.3 [facility] Comment on above: Performed By: #### 2 285118, 045588836, 89944932, 5922709, 0887420 ####[facility] [address] [place] [address] Glucose [Mass/Vol] 102 mg/dL Normal 55-199 [facility] Comment on above: Result Comment: If t his glucose result represents a fasting glucose, interpretation should refer to the following reference range: 55-99 mg/dL Performed By: #### 2 015467, 267569175, 05307657, 3905933, 2061930 ####[facility] [address] [place] [address] Potassium [Moles/Vol] 4.0 mmol/L Normal 3.5-5.3 [facility] Comment on above: Performed By: #### 2 846251, 510942776, 90086561, 6669736, 3440887 ####[facility] [address] [place] [address] Sodium [Moles/Vol] 141 mmol/L Normal 135-145 [facility] Comment on above: Performed By: #### 2 537562, 724038475, 36817454, 5807221, 5074159 ####[facility] [address] [place] [address] Urea nitrogen [Mass/Vol] 36 mg/dL High 5-21 [facility] Comment on above: Performed By: #### 2 089521, 242984063, 20169740, 1524545, 1966403 ####[facility] [address] [place] [address] Urea nitrogen/Creatinine [Mass ratio] 26 No Units High 10-20 [facility] Comment on above: Performed By: #### 2 532622, 126653834, 31649956, 5120087, 8037164 ####[facility] [address] [place] [address] C Urineon 12-21-2022 Bacteria identified Cx Nom (U) Normal [facility] Comment on above: Performed By: #### 2 872832, 04855412 ####[facility] [address] [place] [address] CBC w/ Auto Diffon Erythrocyte distribution width (RBC) [Ratio] 18.4 % High 10.9-14.2 [facility] Comment on above: Performed By: #### 2 156778, 282673819, 70296967, 4775245, 2288707 ####[facility] [address] [place] [address] Hematocrit (Bld) [Volume fraction] 26.8 % Low 34.0-46.0 [facility] Comment on above: Performed By: #### 2 416816, 687762304, 99449583, 4121578, 3196978 ####[facility] [address] [place] [address] Hemoglobin (Bld) [Mass/Vol] 9.3 g/dL Low 12.0-16.0 [facility] Comment on above: Performed By: #### 2 104801, 958508290, 34122575, 1745632, 1058722 ####[address] [place] [address] MCH (RBC) [Entitic mass] 34.3 pg High 27.0-34.0 [facility] Comment on above: Performed By: #### 2 105178, 791370172, 81062415, 1562823, 7039938 ####[facility] [address] [place] [address] MCHC (RBC) [Mass/Vol] 34.8 g/dL Normal 31.4-36.0 [facility] Comment on above: Performed By: #### 2 830695, 384361032, 51188154, 8124117, 3252136 ####[address] [place] [address] MCV (RBC) [Entitic vol] 98.6 fL Normal 80.0-100.0 F [facility] Comment on above: Performed By: #### 2 709248, 565374344, 91983582, 4837199, 3528707 ####[facility] [address] [place] [address] Platelet mean volume (Bld) [Entitic vol] 6.8 fL Normal 6.4-10.8 [facility] Comment on above: Performed By: #### 2 421223, 491052756, 28022769, 0593559, 3936409 ####[facility] [address] [place] [address] Platelets (Bld) [#/Vol] 201.0 E9/L Normal 150. 0-500. 0 [facility] Comment on above: Performed By: #### 2 705325, 183248856, 71369216, 8527391, 1989417 ####[facility] [address] [place] [address] RBC (Bld) [#/Vol] 2.7 E12/L Low 4.3-5.9 [facility] Comment on above: Performed By: #### 2 380571, 288935517, 43005064, 2061312, 5201427 ####[facility] [address] [place] [address] WBC corrected for nucl RBC Auto (Bld) [#/Vol] 3.3 E9/L Low 4.0-11.0 [facility] Comment on above: Performed By: #### 2 611560, 318499927, 60923058, 5506489, 2486615 ####[facility] [address] [place] [address] CHEMISTRYOrdered By: SYSTEM SYSTEM on 12-21-2022 Anion [...] 40 mL/min/1.73 m2 Low >=59mL/min /1.73 m2 [facility] Chem S Glucose [Mass/Vol] 102 mg/dL Normal 55 - 199 mg/dL [facility] Remisol Potassium [Moles/Vol] 4.0 mmol/L Normal 3.5 - 5.3 mmol/L [facility] Remisol Sodium [Moles/Vol] 141 mmol/L Normal 135 - 145 mmol/L [facility] Remisol Urea nitrogen [Mass/Vol] 36 mg/dL High 5 - 21 mg/dL [facility] Remisol Urea nitrogen/Creatinine [Mass ratio] 26 mg/mg High 10 - 20 [facility] Remisol CHEMISTRYOrdered By: Gavino Lyle on 12-21-2022 HbA1c (Bld) [Mass fraction] 7.1 % High <=5.9% [facility] ChemAutoSS Capillary Glucose POCon Glucose [Mass/Vol] 127 mg/dL High 55-99 [facility] Comment on above: Result Comment: Navin BOSE Performed By: #### 2 54876057 ####[facility] [address] [place] [address] Glucose [Mass/Vol] 160 mg/dL High 55-99 [facility] Comment on above: Result Comment: Navin BOSE Performed By: #### 2 07148900 ####[facility] [address] [place] [address] Glucose [Mass/Vol] 132 mg/dL High 55-99 [facility] Comment on above: Result Comment: Navin BOSE Performed By: #### 2 13128391 ####[facility] [address] [place] [address] Glucose [Mass/Vol] 115 mg/dL High 55-99 [facility] Comment on above: Result Comment: Navin BOSE Performed By: #### 2 69245419 ####[facility] [address] [place] [address] HEMATOLOGYOrdered By: SYSTEM SYSTEM on 12-21-2022 Basophils/100 [...] E9/L Normal 150. 0 - 500.0 E9/L [facility] HemeAutoSS RBC (Bld) [#/Vol] 2.7 E12/L Low 4.3 - 5.9 E12/L [facility] HemeAutoSS WBC corrected for nucl RBC Auto (Bld) [#/Vol] 3.3 E9/L Low 4.0 - 11.0 E9/L [facility] HemeAutoSS HssF1bkx 12-21-2022 HbA1c (Bld) [Mass fraction] 7.1 % High <=5.9 [facility] Comment on above: Performed By: #### 2 876986, 599282899, 43962461, 2025869, 6210645 ####[facility] [address] [place] [address] Insurance Correspondence Off iceon 12-21-2022 Insurance Correspondence Office [id number]#[id number]:12 7 Normal [facility] 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 Note - Attila e Manageron 12-21-2022 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 Note - Flight Physician Normal [facility] Comment on above: Result Comment: Elec tronically Signed By: Brooklynn Connor\nai\Date and Time Signed: 12/21/22 11:15 EDT 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 Note - Rafat n 12-21-2022 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 Note - OT Normal [facility] 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 Note - PTo n 12-21-2022 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 Note - PT Normal [facility] 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 Note - Soc ial Workeron 12-21-2022 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 Note - Informatica Developer [facility] Message from Medicareon Message from Medicare [id number]#[id number]:12 7 Normal [facility] Progress Note-Physicianon Progress Note-Physician Normal F [facility] Comment on above: Result Comment: Elec tronically Signed By: Zaheer Sloan DO\Date and Time Signed: 12/21/22 14:15 EDT eGFRon 12-21-2022 GFR/1.73 sq M.predicted among non-blacks MDRD (S/P/Bld) [Vol rate/Area] 40 mL/min/1.73 m2 Low >=59 [facility] Comment on above: Order Comment: Order added by Discern Expert. Result Comment: Manager [employer] aubrey kidney disease could be indicated at eGFR's of less than 60 mL/min/1.73m2. Kidney failure is indicated at less than 15 mL/min/1.73m2. Performed By: #### 2 993243, 858845726, 63357642, 5951635, 8081390 ####[facility] [address] [place] [address] Auto Diffon 12-20-2022 Basophils/100 WBC (Bld) 3.5 % High 0.0-2.0 F [facility] Comment on above: Order Comment: Order Added by Discern Expert. Performed By: #### 2 727141, 81625643, 9792056, 94977308, 9777273, 2415351 ####[facility] [address] [place] [address] Basophils/Leukocytes Auto (Bld) [Pure # fraction] 0.1 E9/L Normal 0.0-0.2 [facility] Comment on above: Order Comment: Order Added by Discern Expert. Performed By: #### 2 401025, 92615480, 2968911, 72147163, 0493768, 1983024 ####[facility] [address] [place] [address] Eosinophils/100 WBC (Bld) 1.3 % Normal 0.0-8.0 [facility] Comment on above: Order Comment: Order Added by Discern Expert. Performed By: #### 2 749829, 08747089, 6829640, 18956134, 9647981, 5834393 ####[facility] [address] [place] [address] Eosinophils/Leukocytes Auto (Bld) [Pure # fraction] 0.0 E9/L Normal 0.0-0.5 [facility] Comment on above: Order Comment: Order Added by Discern Expert. Performed By: #### 2 905838, 25378854, 8834306, 34352306, 2293241, 2153327 ####[facility] [address] [place] [address] Lymphocytes/100 WBC (Bld) 28.4 % Normal 14.0-50.0 [facility] Comment on above: Order Comment: Order Added by Discern Expert. Performed By: #### 2 784173, 83237082, 1558905, 57650614, 9748593, 7907759 ####[address] [place] [address] Lymphocytes/Leukocytes Auto (Bld) [Pure # fraction] 1.1 E9/L Normal 1.0-4.0 [facility] Comment on above: Order Comment: Order Added by Discern Expert. Performed By: #### 2 862940, 82602271, 0809184, 26699675, 3164795, 6073499 ####[address] [address] Monocytes/100 WBC (Bld) 12.5 % Normal 4.0-14.0 [facility] Comment on above: Order Comment: Order Added by Discern Expert. Performed By: #### 2 309872, 26732745, 6874874, 32984671, 3209903, 6197379 ####[address] [address] Monocytes/Leukocytes Auto (Bld) [Pure # fraction] 0.5 E9/L Normal 0.2-1.0 [facility] Comment on above: Order Comment: Order Added by Discern Expert. Performed By: #### 2 328788, 31097027, 2372249, 76610734, 8616761, 6249861 ####[address] [place] [address] Neutrophils/100 WBC (Bld) 54.3 % Normal 36.0-75.0 [facility] Comment on above: Order Comment: Order Added by Discern Expert. Performed By: #### 2 960175, 99207361, 0205245, 29764687, 3613800, 7172192 ####[facility] [address] [place] [address] Neutrophils/Leukocytes Auto (Bld) [Pure # fraction] 2.1 E9/L Normal 2.0-7.5 [facility] Comment on above: Order Comment: Order Added by Discern Expert. Performed By: #### 2 659603, 51145387, 8944977, 87228739, 5051210, 8934700 ####[facility] [address] [place] [address] BMPon 12-20-2022 Creatinine [Mass/Vol] 1.3 mg/dL Normal 0.5-1.3 [facility] Comment on above: Performed By: #### 2 739217, 90035020, 3891028, 31325107, 2718371, 7076215 ####[facility] [address] [place] [address] Urea nitrogen [Mass/Vol] 36 mg/dL High 5-21 [facility] Comment on above: Performed By: #### 2 610926, 18415457, 7846533, 19667159, 3740795, 6674984 ####[facility] [address] [place] [address] Urea nitrogen/Creatinine [Mass ratio] 28 No Units High 10-20 [facility] Comment on above: Performed By: #### 2 040168, 59285054, 7674402, 19436409, 9726565, 0733352 ####[facility] [address] [place] [address] Anion gap [Moles/Vol] 13 mmol/L Normal 6-16 [facility] Comment on above: Performed By: #### 2 687851, 99899615, 4144402, 63022202, 4388311, 2997237 ####[facility] [address] [place] [address] Calcium [Mass/Vol] 9.6 mg/dL Normal 8.9-11.1 [facility] Comment on above: Performed By: #### 2 191440, 01509812, 8106733, 76671823, 2717551, 4706355 ####[facility] [address] [place] [address] Chloride [Moles/Vol] 108 mmol/L Normal 101-111 [facility] Comment on above: Performed By: #### 2 574120, 40226071, 5243390, 30670034, 2335679, 0156005 ####[facility] [address] [place] [address] CO2 [Moles/Vol] 21 mmol/L Normal 21-31 [facility] Comment on above: Performed By: #### 2 241282, 27785781, 5603054, 13472934, 3557748, 8374183 ####[facility] [address] [place] [address] Glucose [Mass/Vol] 136 mg/dL Normal 55-199 [facility] Comment on above: Result Comment: If t his glucose result represents a fasting glucose, interpretation should refer to the following reference range: 55-99 mg/dL Performed By: #### 2 247500, 29564897, 3112221, 70362707, 6810181, 6060390 ####[facility] [address] [place] [address] Potassium [Moles/Vol] 4.2 mmol/L Normal 3.5-5.3 [facility] Comment on above: Performed By: #### 2 867178, 16559562, 7631577, 26663550, 1647898, 0683186 ####[facility] [address] [place] [address] Sodium [Moles/Vol] 138 mmol/L Normal 135-145 [facility] Comment on above: Performed By: #### 2 576356, 85142137, 2162213, 71443958, 6687787, 2890624 ####[facility] [address] [place] [address] CBC w/ Auto Diffon 3 Erythrocyte distribution width (RBC) [Ratio] 19.0 % High 10.9-14.2 [facility] Comment on above: Performed By: #### 2 087284, 77478353, 5462720, 74087404, 4891064, 0773263 ####[facility] [address] [place] [address] Hematocrit (Bld) [Volume fraction] 31.3 % Low 34.0-46.0 [facility] Comment on above: Performed By: #### 2 575708, 36626093, 4889482, 80116211, 3834803, 0957843 ####[address] [place] [address] Hemoglobin (Bld) [Mass/Vol] 10.4 g/dL Low 12.0-16.0 [facility] Comment on above: Performed By: #### 2 614193, 12889412, 4185559, 24051189, 9572771, 2686657 ####[address] [address] MCH (RBC) [Entitic mass] 33.3 pg Normal 27.0-34.0 [facility] Comment on above: Performed By: #### 2 445086, 62744102, 0639017, 35101189, 0104465, 9315433 ####[address] [address] MCHC (RBC) [Mass/Vol] 33.3 g/dL Normal 31.4-36.0 [facility] Comment on above: Performed By: #### 2 413019, 92486874, 1599062, 69336042, 0990666, 8567990 ####[address] [place] [address] MCV (RBC) [Entitic vol] 99.8 fL Normal 80.0-100.0 F [facility] Comment on above: Performed By: #### 2 829538, 68340978, 1523058, 58565644, 7902399, 7209744 ####[facility] [address] [place] [address] Platelet mean volume (Bld) [Entitic vol] 6.8 fL Normal 6.4-10.8 [facility] Comment on above: Performed By: #### 2 788402, 71609853, 2046461, 27154489, 7093017, 1816649 ####[facility] [address] [place] [address] Platelets (Bld) [#/Vol] 212.0 E9/L Normal 150. 0-500. 0 [facility] Comment on above: Performed By: #### 2 897764, 61311358, 4596591, 77901717, 2608848, 4856282 ####[facility] [address] [place] [address] RBC (Bld) [#/Vol] 3.1 E12/L Low 4.3-5.9 [facility] Comment on above: Performed By: #### 2 570223, 25803293, 6029909, 80868768, 3839943, 0078602 ####[facility] [address] [place] [address] WBC corrected for nucl RBC Auto (Bld) [#/Vol] 3.9 E9/L Low 4.0-11.0 [facility] Comment on above: Performed By: #### 2 273873, 88139776, 4326150, 86112344, 1568888, 8003761 ####[facility] [address] [place] [address] CHEMISTRYOrdered By: SYSTEM SYSTEM on 12-20-2022 Troponin [...] 43 mL/min/1.73 m2 Low >=59mL/min /1.73 m2 [facility] Chem S Globulin (S) [Mass/Vol] 3.8 g/dL [...] 9.80 pg/mL Low 10.10 - 27.10 pg/mL [facility] Remisol Urea nitrogen [Mass/Vol] 36 mg/dL High 5 - 21 mg/dL [facility] Remisol Urea nitrogen/Creatinine [Mass ratio] 28 mg/mg High 10 - 20 [facility] Remisol Consent for Treatmenton 11-22 Consent for Treatment [id number]#[id number]:12 7 Normal [facility] Consent for Treatment [id number]#[id number]:1 27 [facility] Discharge Instructionson Discharge Instructions [id number]#[id number]:1 27 Normal [facility] ED Clinical Summaryon 2022 ED Clinical Summary Normal [facility] ED Clinical Summary Normal [facility] ED Note-Physicianon 12-21-19 ED Note-Physician Normal [facility] Comment on above: Result Comment: Elec tronically Signed By: Pedro Nava DO\.br\Date and Time Signed: 12/20/22 19:22 EDT ED Note-Physician Normal [facility] Comment on above: Result Comment: Elec tronically Signed By: David Tong MD\.br\Date and Time Signed: 12/20/22 00:40 EDT ED Patient Education Noteon 12-20-2022 ED Patient Education Note Normal [facility] ED Patient Education Note Normal [facility] ED Patient Summaryon 023 ED Patient Summary Normal [facility] ED Patient Summary Normal [facility] HEMATOLOGYOrdered By: SYSTEM SYSTEM on [...] 3.9 E9/L Low 4.0 - 11.0 E9/L [facility] HemeAutoSS Hep Func Panelon 12-20-2022 Bilirubin.direct [Mass/Vol] 0.1 mg/dL Normal 0.1-0.4 [facility] Comment on above: Performed By: #### 2 826695, 94349399, 4950254, 65896212, 4921830, 9800496 ####[facility] [address] [place] [address] Bilirubin.indirect [Mass or moles/Vol] 0.8 mg/dL Normal 0.1-0.9 [facility] Comment on above: Performed By: #### 2 896077, 96973290, 8195900, 12787664, 0064672, 3982697 ####[facility] [address] [place] [address] Albumin [Mass/Vol] 3.5 g/dL Normal 3.3-5.0 [facility] Comment on above: Performed By: #### 2 081880, 90922402, 6016901, 81071763, 2372524, 1139363 ####[facility] [address] [place] [address] Albumin/Globulin (S) [Mass conc ratio] 0.9 Low 1.1-2.2 [facility] Comment on above: Performed By: #### 2 799310, 15613031, 3195088, 50778483, 4592323, 2220774 ####[facility] [address] [place] [address] ALP [Catalytic activity/Vol] 101 Int._Unit/L High 21-98 [facility] Comment on above: Performed By: #### 2 982708, 65327697, 7402303, 41905277, 1509774, 4812709 ####[facility] [address] [place] [address] ALT No additional P-5'-P [Catalytic activity/Vol] 20 Int._Unit/L Normal 6-46 [facility] Comment on above: Performed By: #### 2 664693, 75084377, 2597463, 10691911, 7145471, 0359627 ####[facility] [address] [place] [address] AST [Catalytic activity/Vol] 18 Int._Unit/L Normal 5-43 [facility] Comment on above: Performed By: #### 2 245253, 23065018, 6120199, 63421472, 8380971, 5391790 ####[facility] [address] [place] [address] Bilirubin [Mass/Vol] 0.9 mg/dL Normal 0.0-1.1 [facility] Comment on above: Performed By: #### 2 808746, 35415317, 0054447, 89676717, 3261115, 5556220 ####[facility] [address] [place] [address] Globulin (S) [Mass/Vol] 3.8 g/dL Normal 1.4-4.0 F [facility] Comment on above: Performed By: #### 2 353711, 93114118, 7044586, 23978670, 0520576, 8492008 ####[facility] [address] [place] [address] Protein [Mass/Vol] 7.3 g/dL Normal 6.0-7.8 [facility] Comment on above: Performed By: #### 2 280242, 85102406, 6117347, 04766527, 9729244, 0005017 ####[facility] [address] [place] [address] Laboratory - Microbiology an d Antimicrobial susceptibilityOrdered By: Ninfa Sawyer on 12-20-2022 Bacteria identified Cx Nom (U) 1,000 cfu/ml Mixed skin contaminants [facility] Monitor Recordon 12-20-2022 Monitor Record [id number]#[id number]:1 27 Normal [facility] Monitor Record [id number]#[id number]:1 27 Normal [facility] Pre-Arrival Noteon 3 Pre-Arrival Note Normal [facility] Troponin 0 Hr.on 12-20-2022 Troponin I.cardiac [Mass/Vol] 9.80 pg/mL Low 10.10-27.1 0 [facility] Comment on above: Result Comment: The 95% CI (Confidence Interval) PPV (Positive Predictive Value) for myocardial infarction in females is 38 pg/mL, in males 51 pg/mL. The results should be used in conjunction with clinical conditions of myocardial infarction.(Access High Sensitivity Troponin I Instructions For Use, [employer], November 2017) Performed By: #### 2 408233, 98791144, 5206920, 94751343, 7247653, 5510869 ####[facility] [address] [place] [address] Troponin 3 Hr.on 12-20-2022 Troponin I.cardiac [Mass/Vol] 10.20 pg/mL Normal 10.10-27.1 0 [facility] Comment on above: Result Comment: The 95% CI (Confidence Interval) PPV (Positive Predictive Value) for myocardial infarction in females is 38 pg/mL, in males 51 pg/mL. The results should be used in conjunction with clinical conditions of myocardial infarction.(Access High Sensitivity Troponin I Instructions For Use, [employer], November 2017) Performed By: #### 1 [id number] ####[facility] [address] [place] [address] UA With Cult Reflexon 2022 Bilirubin Ql (U) Negative Normal Negative [facility] Comment on above: Performed By: #### 1 0290696, 0464345 ####[facility] [address] [place] [address] Clarity (U) CLEAR Normal Clear [facility] Comment on above: Performed By: #### 1 5597182, 7139630 ####[facility] [address] [place] [address] Color (U) STRAW Abnormal Yellow [facility] Comment on above: Performed By: #### 1 2961372, 3997223 ####[facility] [address] [place] [address] Epithelial cells.squamous LM.HPF (Urine sed) [#/Area] 0-2 Normal 0-2 [facility] Comment on above: Performed By: #### 1 6507809, 1103130 ####[facility] [address] [place] [address] Glucose Test strip (U) [Mass/Vol] Negative Normal Negative [facility] Comment on above: Performed By: #### 1 4083750, 8563632 ####[facility] [address] [place] [address] Hemoglobin Ql (U) TRACE Abnormal Negative [facility] Comment on above: Performed By: #### 1 6737114, 8511911 ####[facility] [address] [place] [address] Ketones (U) [Mass/Vol] Negative Normal Negative [facility] Comment on above: Performed By: #### 1 7454607, 4001997 ####[facility] [address] [place] [address] [place].plasma/[place]. RBC (Bld) [Mass ratio] 0-3 Normal 0-3 [facility] Comment on above: Performed By: #### 1 3009936, 2683630 ####[facility] [address] [place] [address] Nitrite Ql (U) Negative Normal Negative [facility] Comment on above: Performed By: #### 1 8583555, 6558040 ####[facility] [address] [place] [address] pH (U) 5.5 [pH] Invalid Interpretation Code 5.0-9.0 [facility] Comment on above: Performed By: #### 1 4073219, 1624884 ####[facility] [address] [place] [address] Protein (U) [Mass/Vol] Negative Normal Negative [facility] Comment on above: Performed By: #### 1 2410935, 4741612 ####[facility] [address] [place] [address] Specific gravity (U) [Rel density] <=1.005 Invalid Interpretation Code 1.005-1.03 0 [facility] Comment on above: Performed By: #### 1 7349443, 7050678 ####[facility] [address] [place] [address] Type of Urine collection method Clean Catch Normal [facility] Comment on above: Performed By: #### 1 8548058, 1210510 ####[address] [address] Urobilinogen Qn (U) 0.2 {Tj'U}/dL Normal 0.0-1.0 [facility] Comment on above: Performed By: #### 1 2850765, 2714599 ####[place] [address] WBC Auto Ql (U) 1+ Abnormal Negative [facility] Comment on above: Performed By: #### 1 2558318, 1344386 ####[place] [address] WBC LM.HPF (Urine sed) [#/Area] 6-15 Abnormal 0-5 [facility] Comment on above: Performed By: #### 1 7263244, 4665400 ####[address] [address] UA Spec Desc Catheter Normal [facility] Comment on above: Result Comment: Mini cath specimen Performed By: #### 2 162377, 94048651 ####[facility] [address] [place] [address] Bacteria LM Ql (Urine sed) 2+ /HPF Abnormal Trace [facility] Comment on above: Performed By: #### 2 825690, 07687686 ####[address] [address] Bilirubin Ql (U) Negative Normal Negative [facility] Comment on above: Performed By: #### 2 418139, 54132824 ####[facility] [address] [place] [address] Clarity (U) CLEAR Normal Clear [facility] Comment on above: Performed By: #### 2 357638, 47888670 ####[facility] [address] [place] [address] Color (U) YELLOW Normal Yellow [facility] Comment on above: Performed By: #### 2 368728, 33145473 ####[address] [address] Epithelial cells.squamous LM.HPF (Urine sed) [#/Area] 0-2 Normal 0-2 [facility] Comment on above: Performed By: #### 2 349154, 03087592 ####[address] [address] Glucose Test strip (U) [Mass/Vol] Negative Normal Negative [facility] Comment on above: Performed By: #### 2 785385, 43385140 ####[facility] [address] [place] [address] Hemoglobin Ql (U) Negative Normal Negative [facility] Comment on above: Performed By: #### 2 722844, 18608285 ####[facility] [address] [place] [address] Ketones (U) [Mass/Vol] Negative Normal Negative [facility] Comment on above: Performed By: #### 2 071047, 98114562 ####[facility] [address] [place] [address] [place].plasma/[place]. RBC (Bld) [Mass ratio] 0-3 Normal 0-3 [facility] Comment on above: Performed By: #### 2 301819, 98185377 ####[facility] [address] [place] [address] Nitrite Ql (U) Positive Abnormal Negative [facility] Comment on above: Performed By: #### 2 316634, 55220269 ####[facility] [address] [place] [address] pH (U) 6.0 [pH] Invalid Interpretation Code 5.0-9.0 [facility] Comment on above: Performed By: #### 2 041314, 58701807 ####[address] [address] Protein (U) [Mass/Vol] Negative Normal Negative [facility] Comment on above: Performed By: #### 2 299990, 91573611 ####[address] [address] Specific gravity (U) [Rel density] 1.025 Invalid Interpretation Code 1.005-1.03 0 [facility] Comment on above: Performed By: #### 2 037396, 12397268 ####[address] [address] Urobilinogen Qn (U) 0.2 {Tj'U}/dL Normal 0.0-1.0 [facility] Comment on above: Performed By: #### 2 120478, 93417721 ####[address] [address] WBC Auto Ql (U) TRACE Abnormal Negative [facility] Comment on above: Performed By: #### 2 638116, 20039287 ####[address] [address] WBC LM.HPF (Urine sed) [#/Area] 0-5 Normal 0-5 [facility] Comment on above: Performed By: #### 2 287349, 09644120 ####[address] [address] URINALYSISOrdered By: Lisette Medina on 12-20-2022 Bilirubin [...] PM) Normal Negative [facility] UA Auto SS [place].plasma/[place]. RBC (Bld) [Mass ratio] 0-3 /HPF Normal 0-3/HPF [facility] UA Auto SS Nitrite Ql (U) Negative (12/20/22 5:18 PM) Normal Negative [facility] UA Auto SS pH (U) 5.5 *NA* (12/20/22 5:18 PM) Invalid Interpretation Code 5.0 - 9.0 [facility] UA Auto SS Protein (U) [Mass/Vol] Negative (12/20/22 5:18 PM) Normal Negative [facility] UA Auto SS Specific gravity (U) [Rel density] <=1.005 *NA* (12/20/22 5:18 PM) Invalid Interpretation Code 1.005 - 1.030 [facility] UA Auto SS UA Spec Desc Clean Catch (12/20/22 5:18 PM) Normal [facility] UA Auto SS Urobilinogen Qn (U) 0.5604991 {Tj'U}/dL Normal 0.0 - 1.0 EU/dL [facility] UA Auto SS WBC Auto Ql (U) 1+ *ABN* (12/20/22 5:18 PM) Invalid Interpretation Code Negative [facility] UA Auto SS WBC LM.HPF (Urine sed) [#/Area] 6-15 /HPF Invalid Interpretation Code 0-5/HPF [facility] UA Auto SS XR Chest Single Viewon 12-20 XR Chest Single View Normal [facility] XR Chest Single View Normal [facility] eGFRon 12-20-2022 GFR/1.73 sq M.predicted among non-blacks MDRD (S/P/Bld) [Vol rate/Area] 43 mL/min/1.73 m2 Low >=59 [facility] Comment on above: Order Comment: Order added by Discern Expert. Result Comment: Manager [employer] aubrey kidney disease could be indicated at eGFR's of less than 60 mL/min/1.73m2. Kidney failure is indicated at less than 15 mL/min/1.73m2. Performed By: #### 2 348387, 16454799, 5497031, 24376405, 4927482, 2311114 ####[facility] [address] [place] [address] Auto Diffon 12-19-2022 Basophils/100 WBC (Bld) 0.4 % Normal 0.0-2.0 [facility] Comment on above: Order Comment: Order Added by Faviola Expert. Performed By: #### 2 293878, 48953530, 17177752, 6760275, 8233302, 04346565, 1782403, 7992504 ####[facility] [address] [place] [address] Basophils/Leukocytes Auto (Bld) [Pure # fraction] 0.0 E9/L Normal 0.0-0.2 [facility] Comment on above: Order Comment: Order Added by Faviola Expert. Performed By: #### 2 763615, 77894722, 45922078, 1096578, 6651447, 16806768, 8103579, 1890893 ####[facility] [address] [place] [address] Eosinophils/100 WBC (Bld) 1.6 % Normal 0.0-8.0 [facility] Comment on above: Order Comment: Order Added by Discern Expert. Performed By: #### 2 678685, 51106138, 22040418, 4369237, 2026549, 55773932, 5657037, 5937546 ####[facility] [address] [place] [address] Eosinophils/Leukocytes Auto (Bld) [Pure # fraction] 0.1 E9/L Normal 0.0-0.5 [facility] Comment on above: Order Comment: Order Added by Faviola Expert. Performed By: #### 2 524545, 68238939, 86889787, 1112649, 6448846, 83333534, 2236740, 8155070 ####[place] [address] [place] [address] Lymphocytes/100 WBC (Bld) 34.4 % Normal 14.0-50.0 [facility] Comment on above: Order Comment: Order Added by Discern Expert. Performed By: #### 2 452230, 76366550, 87657784, 1281671, 6917239, 48219570, 7953533, 3270747 ####[place] [address] [place] [address] Lymphocytes/Leukocytes Auto (Bld) [Pure # fraction] 1.2 E9/L Normal 1.0-4.0 [facility] Comment on above: Order Comment: Order Added by Discern Expert. Performed By: #### 2 467984, 33173731, 68539228, 3457082, 4232959, 90011996, 2752449, 7981469 ####[place] [address] [place] [address] Monocytes/100 WBC (Bld) 12.8 % Normal 4.0-14.0 [facility] Comment on above: Order Comment: Order Added by Discern Expert. Performed By: #### 2 187559, 98379202, 47433083, 0236951, 9896021, 88103847, 3662457, 6245582 ####[address] [address] Monocytes/Leukocytes Auto (Bld) [Pure # fraction] 0.4 E9/L Normal 0.2-1.0 [facility] Comment on above: Order Comment: Order Added by Discern Expert. Performed By: #### 2 594409, 17066388, 16287443, 4956436, 2747626, 70840603, 0493708, 8092251 ####[place] [address] [place] [address] Neutrophils/100 WBC (Bld) 50.8 % Normal 36.0-75.0 [facility] Comment on above: Order Comment: Order Added by Discern Expert. Performed By: #### 2 760047, 69783513, 08699734, 5396250, 4009575, 58969544, 3448219, 0255281 ####[facility] [address] [place] [address] Neutrophils/Leukocytes Auto (Bld) [Pure # fraction] 1.7 E9/L Low 2.0-7.5 [facility] Comment on above: Order Comment: Order Added by Discern Expert. Performed By: #### 2 014048, 00635117, 77641888, 2876338, 3177887, 63225149, 1077596, 2768011 ####[facility] [address] [place] [address] BMPon 12-19-2022 Anion gap [Moles/Vol] 10 mmol/L Normal 6-16 [facility] Comment on above: Performed By: #### 2 978526, 17433818, 57684035, 2641757, 5423224, 72446491, 5956128, 3431298 ####[facility] [address] [place] [address] Calcium [Mass/Vol] 9.4 mg/dL Normal 8.9-11.1 [facility] Comment on above: Performed By: #### 2 976327, 74437378, 48951808, 8694422, 1282699, 65101879, 3377107, 0143539 ####[facility] [address] [place] [address] Chloride [Moles/Vol] 111 mmol/L Normal 101-111 [facility] Comment on above: Performed By: #### 2 297882, 86504045, 26401178, 0401556, 7134119, 22407504, 8098965, 5963424 ####[facility] [address] [place] [address] CO2 [Moles/Vol] 25 mmol/L Normal 21-31 [facility] Comment on above: Performed By: #### 2 050757, 67859219, 75680654, 0763065, 3068141, 28978509, 9796561, 0681398 ####[facility] [address] [place] [address] Creatinine [Mass/Vol] 1.4 mg/dL High 0.5-1.3 [facility] Comment on above: Performed By: #### 2 678599, 76758471, 96857595, 0345092, 3728906, 04471422, 0705695, 7293444 ####[facility] [address] [place] [address] Glucose [Mass/Vol] 165 mg/dL Normal 55-199 [facility] Comment on above: Result Comment: If t his glucose result represents a fasting glucose, interpretation should refer to the following reference range: 55-99 mg/dL Performed By: #### 2 397785, 23853522, 72920762, 8643291, 5109384, 97930360, 9288678, 6808373 ####[facility] [address] [place] [address] Potassium [Moles/Vol] 4.6 mmol/L Normal 3.5-5.3 [facility] Comment on above: Performed By: #### 2 050495, 55055401, 88680042, 7838923, 0904318, 39303026, 0943786, 9143889 ####[facility] [address] [place] [address] Sodium [Moles/Vol] 141 mmol/L Normal 135-145 [facility] Comment on above: Performed By: #### 2 218843, 19699312, 94521944, 1789843, 4724401, 36173816, 4743725, 4906754 ####[facility] [address] [place] [address] Urea nitrogen [Mass/Vol] 36 mg/dL High 5-21 [facility] Comment on above: Performed By: #### 2 633645, 00976770, 35008909, 5106922, 4989824, 80861319, 2591242, 2831802 ####[facility] [address] [place] [address] Urea nitrogen/Creatinine [Mass ratio] 26 No Units High 10-20 [facility] Comment on above: Performed By: #### 2 849387, 10965091, 44580799, 3836352, 1425503, 42568052, 5119567, 4873489 ####[facility] [address] [place] [address] CBC w/ Auto Diffon 3 Erythrocyte distribution width (RBC) [Ratio] 18.9 % High 10.9-14.2 [facility] Comment on above: Performed By: #### 2 036165, 90136477, 60689950, 5823549, 9477755, 45889443, 6168219, 2166270 ####[place] [address] [place] [address] Hematocrit (Bld) [Volume fraction] 32.2 % Low 34.0-46.0 [facility] Comment on above: Performed By: #### 2 873112, 22839229, 38544362, 4685821, 2778829, 56848040, 1781356, 7282582 ####[facility] [address] [place] [address] Hemoglobin (Bld) [Mass/Vol] 10.8 g/dL Low 12.0-16.0 [facility] Comment on above: Performed By: #### 2 145591, 91170165, 36137802, 1563401, 7886035, 01945415, 8626991, 2116573 ####[facility] [address] [place] [address] MCH (RBC) [Entitic mass] 33.5 pg Normal 27.0-34.0 [facility] Comment on above: Performed By: #### 2 375672, 29118773, 30793853, 9214619, 3130739, 50919209, 8083488, 3986133 ####[facility] [address] [place] [address] MCHC (RBC) [Mass/Vol] 33.4 g/dL Normal 31.4-36.0 [facility] Comment on above: Performed By: #### 2 138652, 01847889, 32625217, 7079439, 0672119, 54389463, 7889139, 5930841 ####[place] [address] [place] [address] MCV (RBC) [Entitic vol] 100.5 fL High 80.0-100.0 [facility] Comment on above: Performed By: #### 2 947636, 37938402, 22743350, 2130828, 9560742, 95682981, 3205346, 8388183 ####[address] [address] Platelet mean volume (Bld) [Entitic vol] 7.0 fL Normal 6.4-10.8 [facility] Comment on above: Performed By: #### 2 882374, 40986370, 99004344, 7086056, 6391519, 93701518, 7648384, 1973887 ####[address] [address] Platelets (Bld) [#/Vol] 204.0 E9/L Normal 150. 0-500. 0 [facility] Comment on above: Performed By: #### 2 733393, 25784304, 78814765, 2417720, 2914719, 93061022, 3260353, 1098611 ####[place] [address] [place] [address] RBC (Bld) [#/Vol] 3.2 E12/L Low 4.3-5.9 [facility] Comment on above: Performed By: #### 2 951265, 86474719, 97272223, 9464764, 9660178, 83687867, 3994365, 6027292 ####[place] [place] [address] WBC corrected for nucl RBC Auto (Bld) [#/Vol] 3.4 E9/L Low 4.0-11.0 [facility] Comment on above: Performed By: #### 2 288231, 25650576, 58215985, 6889362, 0232552, 72741063, 9824344, 9871209 ####[facility] [address] [place] [address] CHEMISTRYOrdered By: SYSTEM SYSTEM on 12-19-2022 Albumin [...] 3.4 E9/L Low 4.0 - 11.0 E9/L [facility] HemeAutoSS Hep Func Panelon 12-19-2022 Albumin [Mass/Vol] 3.5 g/dL Normal 3.3-5.0 [facility] Comment on above: Performed By: #### 2 229547, 90349459, 49467759, 1591443, 7913338, 87026631, 0664046, 0986048 ####[facility] [address] [place] [address] Albumin/Globulin (S) [Mass conc ratio] 1.0 Low 1.1-2.2 [facility] Comment on above: Performed By: #### 2 033564, 05656131, 56008430, 7782993, 3272586, 16144743, 7969049, 2371067 ####[facility] [address] [place] [address] ALP [Catalytic activity/Vol] 110 Int._Unit/L High 21-98 [facility] Comment on above: Performed By: #### 2 225058, 84442459, 39443905, 4759143, 3966664, 51218066, 3451072, 7289222 ####[facility] [address] [place] [address] ALT No additional P-5'-P [Catalytic activity/Vol] 20 Int._Unit/L Normal 6-46 [facility] Comment on above: Performed By: #### 2 907925, 87523868, 69603575, 0325971, 3868532, 25235195, 5156771, 7154983 ####[facility] [address] [place] [address] AST [Catalytic activity/Vol] 19 Int._Unit/L Normal 5-43 [facility] Comment on above: Performed By: #### 2 347342, 00241603, 74742935, 0016756, 5470044, 55086170, 8748371, 9856897 ####[facility] [address] [place] [address] Bilirubin [Mass/Vol] 0.4 mg/dL Normal 0.0-1.1 [facility] Comment on above: Performed By: #### 2 702208, 66524968, 71614518, 1295949, 3669174, 20461620, 1479978, 0407583 ####[facility] [address] [place] [address] Bilirubin.direct [Mass/Vol] 0.1 mg/dL Normal 0.1-0.4 [facility] Comment on above: Performed By: #### 2 489606, 01271849, 69654778, 7486522, 3948350, 83664656, 9552110, 4443159 ####[facility] [address] [place] [address] Bilirubin.indirect [Mass or moles/Vol] 0.3 mg/dL Normal 0.1-0.9 [facility] Comment on above: Performed By: #### 2 168462, 02024540, 75128266, 8643480, 6848111, 66737584, 0897501, 6854996 ####[facility] [address] [place] [address] Globulin (S) [Mass/Vol] 3.5 g/dL Normal 1.4-4.0 [facility] Comment on above: Performed By: #### 2 920839, 90095389, 92748939, 1994226, 4096527, 93005536, 1349162, 2109539 ####[facility] [address] [place] [address] Protein [Mass/Vol] 7.0 g/dL Normal 6.0-7.8 [facility] Comment on above: Performed By: #### 2 306941, 18514686, 31474252, 5692202, 2647161, 59320183, 0387419, 0651300 ####[facility] [address] [place] [address] Laboratory - Microbiology an d Antimicrobial susceptibilityOrdered By: Jeaneth Morfin on 12-19-2022 Bacteria identified Cx Nom (U) >100,000 cfu/ml Gram Negative [employer]nn Client Portfolio Manager species [facility] Magnesiumon 12-19-2022 Magnesium [Mass/Vol] 2.0 mg/dL Normal 1.3-2.4 [facility] Comment on above: Performed By: #### 2 522365, 05552116, 87720725, 1940912, 6771439, 79088383, 3681977, 3702035 ####[facility] [address] [place] [address] PT & PTTon 12-19-2022 aPTT Coag (PPP) [Time] 26.7 second(s) Normal 25.1-36.5 [facility] Comment on above: Result Comment: [...] the same coagulation reagent and instrumentation as [facility]. Currently there are no coagulation studies available worldwide for children to 14 days, and no normal ranges. Heparin therapeutic range (represented by Anti-Factor Xa activity of 0.2 - 0.4 U/mL) corresponds to PTT of 56.6 - 109.0 sec. Performed By: #### 2 887768, 75370756, 78960954, 0496958, 5441396, 05233842, 0645361, 4516951 ####[facility] [address] [place] [address] INR Coag (PPP) [Relative time] 1.0 {INR} Invalid Interpretation Code [facility] Comment on above: Result Comment: INR results are specifically intended to assess patients stabilized on long-term Anticoagulation therapy suggested INR?s ?Less Intensive Anticoagulation? 2.0 ? 3.0Conventional Range 3.0 ? 4.5 Performed By: #### 2 273049, 32688662, 14180441, 6740063, 9528080, 03152004, 0439847, 4237846 ####[facility] [address] [place] [address] PT Coag (PPP) [Time] 11.5 second(s) Normal 9.4-12.5 [facility] Comment on above: Result Comment: [...] the same coagulation reagent and instrumentation as [facility]. Currently there are no coagulation studies available worldwide for children to 14 days, and no normal ranges. Performed By: #### 2 755606, 89451870, 94456678, 8576347, 7490633, 11443710, 4420365, 0286793 ####[facility] [address] [place] [address] Pre-Arrival Noteon Pre-Arrival Note Normal [facility] Troponin 0 Hr.on 12-19-2022 Troponin I.cardiac [Mass/Vol] 9.40 pg/mL Low 10.10-27.1 0 [facility] Comment on above: Result Comment: The 95% CI (Confidence Interval) PPV (Positive Predictive Value) for myocardial infarction in females is 38 pg/mL, in males 51 pg/mL. The results should be used in conjunction with clinical conditions of myocardial infarction.(Access High Sensitivity Troponin I Instructions For Use, Gaby Marisol, November 2017) Performed By: #### 2 219349, 18877509, 17369635, 5847344, 7548370, 95220607, 7099764, 6776498 ####[facility] [address] [place] [address] URINALYSISOrdered By: Evert Cordoba on 12-19-2022 Bacteria [...] PM) Normal Negative [facility] UA Auto SS [place].plasma/[place]. RBC (Bld) [Mass ratio] 0-3 /HPF Normal [...] Comment: Mini cath specimen Urobilinogen Qn (U) 0.6772572 {Tj'U}/dL Normal 0.0 - 1.0 EU/dL [facility] UA Auto SS WBC Auto Ql (U) Trace *ABN* (12/19/22 10:25 PM) Invalid Interpretation Code Negative [facility] UA Auto SS WBC LM.HPF (Urine sed) [#/Area] 0-5 /HPF Normal 0-5/HPF [facility] UA Auto SS eGFRon 12-19-2022 GFR/1.73 sq M.predicted among non-blacks MDRD (S/P/Bld) [Vol rate/Area] 40 mL/min/1.73 m2 Low >=59 [facility] Comment on above: Order Comment: Order added by Discern Expert. Result Comment: Manager Research [employer] Development aubrey kidney disease could be indicated at eGFR's of less than 60 mL/min/1.73m2. Kidney failure is indicated at less than 15 mL/min/1.73m2. Performed By: #### 2 752637, [id number], 87217623, 0364508, 5224603, 04854172, 9403865, 4709809 ####[facility] [address] [place] [address] CT Spine Lumbar w/o Contrast on 12-17-2022 CT Spine Lumbar w/o Contrast Normal [facility] Consent for Treatmenton 11-21 Consent for Treatment [id number]#1.00CD:1 27 Normal [facility] Discharge Instructionson Discharge Instructions [id number]#1.00CD:1 27 Normal [facility] ED Clinical Summaryon 2022 ED Clinical Summary Normal [facility] ED Note-Physicianon 12-18-19 ED Note-Physician Normal [facility] Comment on above: Result Comment: Elec tronically Signed By: Gui Scruggs PA-C\.br\Date and Time Signed: 12/17/22 13:40 EDT\.br\Electronically Co-Signed By: Jeffery Murphy DO\.br\Date and Time Co-Signed: 12/17/22 18:34 EDT ED Patient Education Noteon 12-17-2022 ED Patient Education Note Normal [facility] ED Patient Summaryon 023 ED Patient Summary Normal [facility] Long-Term Recordson 12-17 Long-Term Records [id number]#1.00CD:1 27 Normal [facility] XR Hip 2-3 Views Right + Pel vison 12-17-2022 XR Hip 2-3 Views Right + Pelvis Normal [facility] XR Spine Lumbosacral 2 or 3 Viewson 12-17-2022 XR Spine Lumbosacral 2 or 3 Views Normal [facility] Family Medicine Office/Clini c Noteon 12-14-2022 Family Medicine Office/Clinic Note Normal [facility] Comment on above: Result Comment: Elec tronically Signed By: Sammy QUEZADA MD\.br\Date and Time Signed: 12/14/22 16:36 EDT ONC - Otheron 12-12-2022 ONC - Other [id number]#1.00CD:1 27 Normal [facility] ONC - Otheron 12-04-2022 ONC - Other [id number]#1.00CD:1 27 Normal [facility] ONC - Otheron 11-21-2022 ONC - Other [id number]#1.00CD:1 27 Normal [facility] XR Pelvis 1 or 2 Viewson XR Pelvis 1 or 2 Views Normal [facility] RAD - MISCon 11-20-2022 RAD - MISC [id number]#1.00CD:1 27 Normal [facility] Family Medicine Office/Clini c Noteon 11-07-2022 [facility] Medicine Office/Clinic Note Normal [facility] Comment on above: Result Comment: Elec tronically Signed By: Sammy QUEZADA MD\.br\Date and Time Signed: 11/06/22 22:21 EDT Consultation Noteon 11-07-19 23 Consultation Note Normal [facility] Comment on above: Result Comment: Elec tronically Signed By: Gavino Erickson DO\.br\Date and Time Signed: 11/06/22 07:17 EDT Discharge Documentationon Discharge Documentation [id number]#1.00CD:1 27 Normal [facility] Message from Medicareon 10-20 Message from Medicare [id number]#1.00CD:1 27 [facility] Transfer Documentson 023 Transfer Documents [id number]#1.00CD:1 27 [facility] Insurance Correspondence Off iceon 11-05-2022 Insurance Correspondence Office [id number]#1.00CD:12 7 Normal [facility] Inpatient Clinical Summaryon 11-04-2022 Inpatient Clinical Summary Normal [facility] Inpatient Patient Summaryon 11-04-2022 Inpatient Patient Summary [facility] Inpatient Patient Summary [facility] 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 Note - Attila e Manageron 11-04-2022 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 Note - Flight Physician [facility] Comment on above: Result Comment: Elec tronically Signed By: Florence Ortega\.br\Date and Time Signed: 11/04/22 13:07 EDT CHEMISTRYOrdered By: SYSTEM SYSTEM on 11-03-2022 25-hydroxyvitamin D3 [Mass/Vol] ng/mL Low 30.0 - 100.0 ng/mL [facility] 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 Note - Attila e Manageron 11-03-2022 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 Note - Flight Physician [facility] Comment on above: Result Comment: Elec tronically Signed By: Florence Ortega\.br\Date and Time Signed: 11/03/22 10:38 EDT Progress Note-Physicianon Progress Note-Physician [facility] Comment on above: Result Comment: Elec tronically Signed By: Trevor HANKS, Wyatt\.br\Date and Time Signed: 11/03/22 08:08 EDT RPR with Conf Rfxon 11-04-19 Reagin Ab RPR Ql (S) Non-Reactive Invalid Interpretation Code Non Reactive [facility] Comment on above: Result Comment: Perf ormed at: [facility] [address] [id number] PhD [place] Avelar Performed By: #### 2 345834, 8742530, [id number], 64198939 ####[facility] [address] [place] [address] Vitamin D 25 Hydroxyon 11-03 25-hydroxyvitamin D3 [Mass/Vol] ng/mL Low 30.0-100.0 [facility] Comment on above: Result Comment: Vit beltran D deficiency has been defined as a level of serum 25-OH vitamin D less than 20 ng/mL (1,2) by the Gerlaw of Medicine and an Endocrine Society practice guideline. The Endocrine Society further defined vitamin D insufficiency as a level between 21 and 29 ng/mL (2). 1. IOM (Gerlaw of Medicine). 2010. Dietary reference intakes for calcium and D. [place]: The National Academies Press. 2. Katlin MF, Taylor [place], Jarad DUKE, et al. Evaluation, treatment, and prevention of vitamin D deficiency: an Endocrine Society clinical practice guideline. JCEM. 2010; 96 (7):1911-30. Performed By: #### 5 [id number] ####[facility] [address] [place] [address] Auto Diffon 11-02-2022 Basophils/100 WBC (Bld) 1.2 % Normal 0.0-2.0 F [facility] Comment on above: Order Comment: Order Added by Discern Expert. Performed By: #### 2 075985, 3198743, 5750023, 6522214, 67651297, 65304753 ####[facility] [address] [place] [address] Basophils/Leukocytes Auto (Bld) [Pure # fraction] 0.1 E9/L Normal 0.0-0.2 [facility] Comment on above: Order Comment: Order Added by Discern Expert. Performed By: #### 2 238137, 5797842, 8196323, 1433061, 61666442, 72727513 ####[facility] [address] [place] [address] Eosinophils/100 WBC (Bld) 3.3 % Normal 0.0-8.0 [facility] Comment on above: Order Comment: Order Added by Discern Expert. Performed By: #### 2 232490, 6176721, 0304766, 9601956, 42318542, 13143175 ####[facility] [address] [place] [address] Eosinophils/Leukocytes Auto (Bld) [Pure # fraction] 0.2 E9/L Normal 0.0-0.5 [facility] Comment on above: Order Comment: Order Added by Faviola Expert. Performed By: #### 2 972870, 1571788, 9161229, 0725144, 39360948, 93762478 ####[facility] [address] [place] [address] Lymphocytes/100 WBC (Bld) 24.6 % Normal 14.0-50.0 [facility] Comment on above: Order Comment: Order Added by Faviola Expert. Performed By: #### 2 143329, 8287364, 7194164, 8277806, 37933819, 63666400 ####[facility] [address] [place] [address] Lymphocytes/Leukocytes Auto (Bld) [Pure # fraction] 1.6 E9/L Normal 1.0-4.0 [facility] Comment on above: Order Comment: Order Added by Faviola Expert. Performed By: #### 2 605352, 8518112, 8062138, 8707658, 77361418, 36473934 ####[facility] [address] [place] [address] Monocytes/100 WBC (Bld) 5.0 % Normal 4.0-14.0 [facility] Comment on above: Order Comment: Order Added by Faviola Expert. Performed By: #### 2 969413, 3149018, 6036031, 5624984, 23798309, 74905937 ####[facility] [address] [place] [address] Monocytes/Leukocytes Auto (Bld) [Pure # fraction] 0.3 E9/L Normal 0.2-1.0 [facility] Comment on above: Order Comment: Order Added by Faviola Expert. Performed By: #### 2 096379, 9269473, 7598806, 1067528, 28973083, 50650229 ####[facility] [address] [place] [address] Neutrophils/100 WBC (Bld) 65.9 % Normal 36.0-75.0 [facility] Comment on above: Order Comment: Order Added by Faviola Expert. Performed By: #### 2 476995, 7930837, 6392778, 0914999, 08313652, 38193743 ####[facility] [address] [place] [address] Neutrophils/Leukocytes Auto (Bld) [Pure # fraction] 4.4 E9/L Normal 2.0-7.5 [facility] Comment on above: Order Comment: Order Added by Faviola Expert. Performed By: #### 2 251920, 9587868, 2509581, 8647363, 99308524, 14687021 ####[facility] [address] [place] [address] BMP 11-02-2022 Creatinine [Mass/Vol] 1.3 mg/dL Normal 0.5-1.3 [facility] Comment on above: Performed By: #### 2 631918, 1061676, 0003945, 1884292, 27738169, 19044783 ####[facility] [address] [place] [address] Urea nitrogen [Mass/Vol] 26 mg/dL High 5-21 [facility] Comment on above: Performed By: #### 2 238980, 5448901, 4587268, 0512774, 82244496, 03360753 ####[facility] [address] [place] [address] Urea nitrogen/Creatinine [Mass ratio] 20 No Units Normal 10-20 [facility] Comment on above: Performed By: #### 2 684171, 8083260, 8110487, 8309518, 99345038, 54425730 ####[facility] [address] [address] Anion gap [Moles/Vol] 15 mmol/L Normal 6-16 [facility] Comment on above: Performed By: #### 2 825184, 8585825, 4012653, 3471016, 49485022, 66702967 ####[facility] [address] [place] [address] Calcium [Mass/Vol] 9.1 mg/dL Normal 8.9-11.1 [facility] Comment on above: Performed By: #### 2 219985, 5439637, 9647279, 0350618, 99919169, 69009811 ####[facility] [address] [address] Chloride [Moles/Vol] 105 mmol/L Normal 101-111 [facility] Comment on above: Performed By: #### 2 624146, 9181376, 7222144, 7869939, 78333953, 50536978 ####[facility] [address] [address] CO2 [Moles/Vol] 22 mmol/L Normal 21-31 [facility] Comment on above: Performed By: #### 2 890826, 0428603, 9106160, 8569893, 78344051, 26371539 ####[facility] [address] [place] [address] Glucose [Mass/Vol] 130 mg/dL Normal 55-199 [facility] Comment on above: Result Comment: If t his glucose result represents a fasting glucose, interpretation should refer to the following reference range: 55-99 mg/dL Performed By: #### 2 176959, 7987202, 9651332, 0634130, 79205277, 97104396 ####[facility] [address] [place] [address] Potassium [Moles/Vol] 4.2 mmol/L Normal 3.5-5.3 [facility] Comment on above: Performed By: #### 2 789198, 2791301, 6488374, 1251641, 13318075, 84975709 ####[facility] [address] [place] [address] Sodium [Moles/Vol] 138 mmol/L Normal 135-145 [facility] Comment on above: Performed By: #### 2 739492, 2909101, 9182413, 2003101, 75932328, 40238923 ####[address] [place] [address] CBC w/ Auto Diffon 3 Erythrocyte distribution width (RBC) [Ratio] 16.3 % High 10.9-14.2 [facility] Comment on above: Performed By: #### 2 065947, 5819982, 7484465, 1318542, 13407791, 41858189 ####[address] [place] [address] Hematocrit (Bld) [Volume fraction] 36.5 % Normal 34.0-46.0 [facility] Comment on above: Performed By: #### 2 951338, 8510157, 8262568, 9298501, 24436529, 00457666 ####[facility] [address] [place] [address] Hemoglobin (Bld) [Mass/Vol] 12.1 g/dL Normal 12.0-16.0 [facility] Comment on above: Performed By: #### 2 758122, 5006924, 5997528, 6677146, 05543472, 60057109 ####[facility] [address] [place] [address] MCH (RBC) [Entitic mass] 32.9 pg Normal 27.0-34.0 [facility] Comment on above: Performed By: #### 2 998867, 6374611, 9291035, 2425759, 59358350, 88418013 ####[facility] [address] [place] [address] MCHC (RBC) [Mass/Vol] 33.1 g/dL Normal 31.4-36.0 [facility] Comment on above: Performed By: #### 2 457893, 2159543, 0525881, 1197502, 57519139, 30859260 ####[address] [place] [address] MCV (RBC) [Entitic vol] 99.3 fL Normal 80.0-100.0 F [facility] Comment on above: Performed By: #### 2 474840, 1570916, 5072414, 0350562, 68017413, 78969629 ####[address] [address] Platelet mean volume (Bld) [Entitic vol] 7.3 fL Normal 6.4-10.8 [facility] Comment on above: Performed By: #### 2 585188, 6597141, 5750687, 6986594, 16180833, 67041314 ####[address] [place] [address] Platelets (Bld) [#/Vol] 229.0 E9/L Normal 150. 0-500. 0 [facility] Comment on above: Performed By: #### 2 889013, 3643994, 3563245, 2610651, 88790864, 94463297 ####[address] [place] [address] RBC (Bld) [#/Vol] 3.7 E12/L Low 4.3-5.9 [facility] Comment on above: Performed By: #### 2 732730, 9042686, 7212281, 0232130, 86546465, 98577116 ####[facility] [address] [place] [address] WBC corrected for nucl RBC Auto (Bld) [#/Vol] 6.6 E9/L Normal 4.0-11.0 [facility] Comment on above: Performed By: #### 2 438842, 5640451, 1413253, 9116777, 85183608, 68518226 ####[facility] [address] [place] [address] CT Pelvis w/o Contraston CT Pelvis w/o Contrast Normal Lucila hyman [facility] ED Clinical Summaryon 2022 ED Clinical Summary Normal Debbie caballero [facility] ED Note-Physicianon 11-03-19 ED Note-Physician Radiologist has read the x-ray of the sacrum and there is discrepancy. He is reading he has a left pubic rami fracture. The patient has been admitted to the hospital.The hospitalist notified. Normal [facility] Comment on above: Result Comment: Elec tronically Signed By: Alok Cai M.D.\.br\Date and Time Signed: 11/02/22 07:41 EDT ED Note-Physician Normal [facility] Comment on above: Result Comment: Elec tronically Signed By: Kelly Meredith DO\.br\Date and Time Signed: 11/02/22 00:27 EDT ED Patient Education Noteon 11-02-2022 ED Patient Education Note Normal [facility] ED Patient Summaryon 023 ED Patient Summary Normal [facility] ED Traumaon 11-02-2022 ED Trauma [id number]:1 27 Normal [facility] FolateOrdered By: SYSTEM SYS TEM on 11-02-2022 Folate [Mass/Vol] 11.4 ng/mL Normal >=6.7 [facility] Comment on above: Performed By: #### 2 554349, 7814255, 527985995, 06455437 ####[facility] [address] [place] [address] Hep Func Panelon 11-02-2022 Albumin [Mass/Vol] 3.5 g/dL Normal 3.3-5.0 [facility] Comment on above: Performed By: #### 2 132705, 5445216, 7377504, 8081531, 22179758, 53886134 ####[facility] [address] [place] [address] Albumin/Globulin (S) [Mass conc ratio] 1.0 Low 1.1-2.2 [facility] Comment on above: Performed By: #### 2 326236, 5130040, 0971446, 1128799, 87485981, 27631777 ####[address] [place] [address] ALP [Catalytic activity/Vol] 110 Int._Unit/L High 21-98 [facility] Comment on above: Performed By: #### 2 753316, 1442632, 7388056, 8241100, 39854785, 17077975 ####[address] [place] [address] ALT No additional P-5'-P [Catalytic activity/Vol] 13 Int._Unit/L Normal 6-46 [facility] Comment on above: Performed By: #### 2 180073, 4576865, 2152410, 7224649, 19530765, 86130018 ####[address] [place] [address] AST [Catalytic activity/Vol] 20 Int._Unit/L Normal 5-43 [facility] Comment on above: Performed By: #### 2 698316, 6171837, 0806400, 9934099, 93385956, 23747875 ####[facility] [address] [place] [address] Bilirubin [Mass/Vol] 0.9 mg/dL Normal 0.0-1.1 [facility] Comment on above: Performed By: #### 2 619708, 9891668, 0591954, 8947954, 68344935, 52234787 ####[facility] [address] [place] [address] Bilirubin.direct [Mass/Vol] 0.2 mg/dL Normal 0.1-0.4 [facility] Comment on above: Performed By: #### 2 554107, 0193138, 8562477, 0024896, 44844640, 29425040 ####[facility] [address] [place] [address] Bilirubin.indirect [Mass or moles/Vol] 0.7 mg/dL Normal 0.1-0.9 [facility] Comment on above: Performed By: #### 2 039054, 9687366, 3225657, 3453388, 88593774, 58677855 ####[facility] [address] [place] [address] Globulin (S) [Mass/Vol] 3.4 g/dL Normal 1.4-4.0 [facility] Comment on above: Performed By: #### 2 853499, 0492020, 0975963, 5601450, 54190979, 34528491 ####[facility] [address] [place] [address] Protein [Mass/Vol] 6.9 g/dL Normal 6.0-7.8 [facility] Comment on above: Performed By: #### 2 695851, 4853309, 5359749, 2250428, 64917921, 43659556 ####[address] [place] [address] Insurance Correspondence Off iceon 11-02-2022 Insurance Correspondence Office [id number]#[id number]:12 7 Normal [facility] 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 Note - Attila e Manageron 11-02-2022 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 Note - Flight Physician Normal [facility] Comment on above: Result Comment: Elec tronically Signed By: Florence Ortega\.br\Date and Time Signed: 11/02/22 14:23 EDT 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 Note - Rafat n 11-02-2022 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 Note - OT Normal [facility] 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 Note - Soc ial Workeron 11-02-2022 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 Note - Informatica Developer Normal [facility] Monitor Recordon 11-02-2022 Monitor Record [id number]#[id number]:1 27 Normal [facility] Progress Note-Physicianon Progress Note-Physician Normal F [facility] Comment on above: Result Comment: Elec tronically Signed By: Gavino Erickson DO\.br\Date and Time Signed: 11/02/22 15:25 EDT Progress Note-Physician Normal F [facility] Comment on above: Result Comment: Elec tronically Signed By: Trevor HANKS, Wyatt\.br\Date and Time Signed: 11/02/22 12:22 EDT Reference Laboratory Testing Ordered By: Generated DomainUser on 11-02-2022 Reagin Ab RPR Ql (S) Non-Reactive Invalid Interpretation Code Non Reactive [facility]Out[facility] Comment on above: Result Comment: Perf ormed at: [facility] [address] [id number] PhD [place] Avelar TSH With T4fr ReflexOrdered By: SYSTEM SYSTEM on 11-02-2022 TSH Qn 0.93 m[IU]/L Normal 0.34-5.60 [facility] Comment on above: Performed By: #### 2 695785, 4296221, 092060951, 95551326 ####[facility] [address] [place] [address] Troponin 0 Hr.on 11-02-2022 Troponin I.cardiac [Mass/Vol] 7.50 pg/mL Low 10.10-27.1 0 [facility] Comment on above: Result Comment: The 95% CI (Confidence Interval) PPV (Positive Predictive Value) for myocardial infarction in females is 38 pg/mL, in males 51 pg/mL. The results should be used in conjunction with clinical conditions of myocardial infarction.(Access High Sensitivity Troponin I Instructions For Use, Gaby Marisol, November 2017) Performed By: #### 2 477803, 9169310, 4541556, 6532438, 95267060, 30250974 ####[facility] [address] [place] [address] UA With Cult Reflexon 2022 Bacteria LM Ql (Urine sed) TRACE Normal Trace [facility] Comment on above: Order Comment: Urina ry Catheter Insertion triggered Urinalysis With Culture Reflex order by discern. Performed By: #### 1 6039377 ####[address] [address] Bilirubin Ql (U) Negative Normal Negative [facility] Comment on above: Order Comment: Urina ry Catheter Insertion triggered Urinalysis With Culture Reflex order by discern. Performed By: #### 1 4474788 ####[address] [address] Clarity (U) CLEAR Normal Clear [facility] Comment on above: Order Comment: Urina ry Catheter Insertion triggered Urinalysis With Culture Reflex order by discern. Performed By: #### 1 0088042 ####[address] [address] Color (U) YELLOW Normal Yellow [facility] Comment on above: Order Comment: Urina ry Catheter Insertion triggered Urinalysis With Culture Reflex order by discern. Performed By: #### 1 8135262 ####[address] [address] Epithelial cells.squamous LM.HPF (Urine sed) [#/Area] 3-4 Normal 0-2 [facility] Comment on above: Order Comment: Urina ry Catheter Insertion triggered Urinalysis With Culture Reflex order by discern. Performed By: #### 1 4107126 ####[facility] [address] [place] [address] Glucose Test strip (U) [Mass/Vol] Negative Normal Negative [facility] Comment on above: Order Comment: Urina ry Catheter Insertion triggered Urinalysis With Culture Reflex order by discern. Performed By: #### 1 9420082 ####[facility] [address] [place] [address] Hemoglobin Ql (U) TRACE Abnormal Negative [facility] Comment on above: Order Comment: Urina ry Catheter Insertion triggered Urinalysis With Culture Reflex order by discern. Performed By: #### 1 4708230 ####[address] [address] Ketones (U) [Mass/Vol] TRACE Abnormal Negative [facility] Comment on above: Order Comment: Urina ry Catheter Insertion triggered Urinalysis With Culture Reflex order by discern. Performed By: #### 1 9750355 ####[address] [address] [place].plasma/[place]. RBC (Bld) [Mass ratio] 4-20 Normal 0-3 [facility] Comment on above: Order Comment: Urina ry Catheter Insertion triggered Urinalysis With Culture Reflex order by discern. Performed By: #### 1 1074233 ####[address] [address] Nitrite Ql (U) Negative Normal Negative [facility] Comment on above: Order Comment: Urina ry Catheter Insertion triggered Urinalysis With Culture Reflex order by discern. Performed By: #### 1 8587932 ####[address] [address] pH (U) 6.0 [pH] Invalid Interpretation Code 5.0-9.0 [facility] [facility] Comment on above: Order Comment: Urina ry Catheter Insertion triggered Urinalysis With Culture Reflex order by discern. Performed By: #### 1 [id number] ####[address] [address] Protein (U) [Mass/Vol] TRACE Abnormal Negative [facility] Comment on above: Order Comment: Urina ry Catheter Insertion triggered Urinalysis With Culture Reflex order by discern. Performed By: #### 1 [id number] ####[address] [address] Specific gravity (U) [Rel density] 1.025 Invalid Interpretation Code 1.005-1.03 0 [facility] Comment on above: Order Comment: Urina ry Catheter Insertion triggered Urinalysis With Culture Reflex order by discern. Performed By: #### 1 [id number] ####[address] [address] Type of Urine collection method Catheter Normal [facility] Comment on above: Order Comment: Urina ry Catheter Insertion triggered Urinalysis With Culture Reflex order by discern. Performed By: #### 1 3244015 ####[address] [address] Urobilinogen Qn (U) 1.0 {Tj'U}/dL Normal 0.0-1.0 [facility] Comment on above: Order Comment: Urina ry Catheter Insertion triggered Urinalysis With Culture Reflex order by discern. Performed By: #### 1 7239533 ####[address] [address] WBC Auto Ql (U) Negative Normal Negative [facility] Comment on above: Order Comment: Urina ry Catheter Insertion triggered Urinalysis With Culture Reflex order by discern. Performed By: #### 1 9488933 ####[address] [address] WBC LM.HPF (Urine sed) [#/Area] 0-5 Normal 0-5 [facility] Comment on above: Order Comment: Urina ry Catheter Insertion triggered Urinalysis With Culture Reflex order by discern. Performed By: #### 1 4855962 ####[address] [address] Bilirubin Ql (U) Negative Normal Negative [facility] Comment on above: Performed By: #### 1 6829448 ####[address] [address] Clarity (U) SL CLOUDY Invalid Interpretation Code [facility] Comment on above: Performed By: #### 1 4748494 ####[address] [address] Color (U) YELLOW Normal Yellow [facility] Comment on above: Performed By: #### 1 6239753 ####[address] [address] Epithelial cells.squamous LM.HPF (Urine sed) [#/Area] 0-2 Normal 0-2 [facility] Comment on above: Performed By: #### 1 2993301 ####[facility] [address] [place] [address] Glucose Test strip (U) [Mass/Vol] Negative Normal Negative [facility] Comment on above: Performed By: #### 1 8901339 ####[address] [address] Hemoglobin Ql (U) 3+ Abnormal Negative [facility] Comment on above: Performed By: #### 1 3588261 ####[address] [address] Ketones (U) [Mass/Vol] TRACE Invalid Interpretation Code Negative [facility] Comment on above: Performed By: #### 1 5807212 ####[address] [address] [place].plasma/[place]. RBC (Bld) [Mass ratio] 21-30 Abnormal 0-3 [facility] Comment on above: Performed By: #### 1 2366820 ####[facility] [address] [place] [address] Mucus Ql (Urine sed) 1+ Normal [facility] Comment on above: Performed By: #### 1 3626648 ####[address] [address] Nitrite Ql (U) Negative Normal Negative [facility] Comment on above: Performed By: #### 1 2939015 ####[facility] [address] [place] [address] pH (U) 6.0 [pH] Invalid Interpretation Code 5.0-9.0 [facility] Comment on above: Performed By: #### 1 1168108 ####[address] [place] [address] Protein (U) [Mass/Vol] 1+ Abnormal Negative [facility] Comment on above: Performed By: #### 1 1517825 ####[facility] [address] [place] [address] Specific gravity (U) [Rel density] 1.025 Invalid Interpretation Code 1.005-1.03 0 [facility] Comment on above: Performed By: #### 1 7995430 ####[facility] [address] [place] [address] Type of Urine collection method Clean Catch Normal [facility] Comment on above: Performed By: #### 1 9160756 ####[place] [address] Urobilinogen Qn (U) 2.0 {Tj'U}/dL Abnormal 0.0-1.0 [facility] Comment on above: Performed By: #### 1 5283714 ####[address] [address] WBC Auto Ql (U) Negative Normal Negative [facility] Comment on above: Performed By: #### 1 7975705 ####[place] [address] WBC LM.HPF (Urine sed) [#/Area] 0-5 Normal 0-5 [facility] Comment on above: Performed By: #### 1 7751950 ####[facility] [address] [place], [place] [address] URINALYSISOrdered By: Dianne Villa on 11-02-2022 Bacteria [...] (Urine sed) [#/Area] 3-4 /HPF Normal 0-2/HPF [facility]A Auto SS Glucose Test strip (U) [Mass/Vol] Negative (11/02/22 5:30 PM) Normal Negative [facility] UA Auto SS Hemoglobin Ql (U) Trace *ABN* (11/02/22 5:30 PM) Invalid Interpretation Code Negative [facility] UA Auto SS Ketones (U) [Mass/Vol] Trace *ABN* (11/02/22 5:30 PM) Invalid Interpretation Code Negative [facility] UA Auto SS [place].plasma/[place]. RBC (Bld) [Mass ratio] 4-20 /HPF Normal [...] [facility] UA Auto SS Urobilinogen Qn (U) 1.0840065 {Tj'U}/dL Normal 0.0 - 1.0 EU/dL [facility] UA Auto SS WBC Auto Ql (U) Negative (11/02/22 5:30 PM) Normal Negative [facility] UA Auto SS WBC LM.HPF (Urine sed) [#/Area] 0-5 /HPF Normal 0-5/HPF [facility] UA Auto SS Vit [id number] By: SYSTEM SY STEM on 11-02-2022 Cobalamin (Vitamin B12) [Mass/Vol] 470 pg/mL Normal 50-1500 [facility] Comment on above: Performed By: #### 2 807138, 2305863, 947656266, 25453171 ####[facility] [address] [place] [address] XR Chest Single Viewon 11-02 XR Chest Single View Normal [facility] XR Pelvis 1 or 2 Viewson XR Pelvis 1 or 2 Views Normal Fi [facility] XR Sacrum and Coccyx Min 2 V iewson 11-02-2022 XR Sacrum and Coccyx Min 2 Views Normal [facility] eGFRon 11-02-2022 GFR/1.73 sq M.predicted among non-blacks MDRD (S/P/Bld) [Vol rate/Area] 43 mL/min/1.73 m2 Low >=59 [facility] Comment on above: Order Comment: Order added by Discern Expert. Result Comment: [employer] aubrey kidney disease could be indicated at eGFR's of less than 60 mL/min/1.73m2. Kidney failure is indicated at less than 15 mL/min/1.73m2. Performed By: #### 2 760233, 1036264, 1367630, 1237000, 25800677, 17179785 ####[facility] [address] [place] [address] CHEMISTRYOrdered By: SYSTEM SYSTEM on 11-01-2022 Albumin [...] for Treatmenton 10-20 Consent for Treatment [id number]#[id number]:12 7 Normal [facility] HEMATOLOGYOrdered By: SYSTEM SYSTEM on [...] 16.3 % High 10.9 - 14.2 % FT HemeAutoSS Hematocrit (Bld) [Volume fraction] 36.5 % Normal 34.0 - 46.0 % FT HemeAutoSS Hemoglobin (Bld) [Mass/Vol] 12.1 g/dL Normal 12.0 - 16.0 gm/dL FT HemeAutoSS MCH (RBC) [Entitic mass] 32.9 pg Normal 27.0 - 34.0 pg [facility] HemeAutoSS MCHC (RBC) [Mass/Vol] 33.1 g/dL Normal 31.4 - 36.0 gm/dL FT HemeAutoSS MCV (RBC) [Entitic vol] 99.3 fL [...] Interpretation Code Negative [facility] UA Auto SS [place].plasma/[place]. RBC (Bld) [Mass ratio] 21-30 /HPF Invalid [...] [facility] UA Auto SS Urobilinogen Qn (U) 2.5845504 {Tj'U}/dL Inv alid Interpretation Code 0.0 - 1.0 EU/dL [facility] UA Auto SS WBC Auto Ql (U) Negative (11/01/22 11:20 PM) Normal Negative [facility] UA Auto SS WBC LM.HPF (Urine sed) [#/Area] 0-5 /HPF Normal 0-5/HPF [facility] UA Auto SS ONC - Otheron 10-30-2022 ONC - Other [id number]#1.00CD:1 27 Normal [facility] 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 Note - Soc ial Workeron 10-05-2022 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 Note - Informatica Developer Normal [facility] Oncology Progress Noteon Oncology Progress Note Normal Fi [facility] Consent for Treatmenton Consent for Treatment [id number]#1.00CD:12 7 Normal [facility] CA 27 29on 09-26-2022 Cancer Ag 27-29 Qn 17.7 unit/mL Invalid Interpretation Code 0.0-38.6 [facility] Comment on above: Result Comment: ZAOZAOaur Immunochemiluminometric Methodology (ICMA)Values obtained with different assay methods or kits cannot be usedinterchangeably. Results cannot be interpreted as absolute evidenceof the presence or absence of malignant disease.Performed at: [facility] [id number] PhD [place] Avelar Performed By: #### 1 2664677, 9045574, 8947314, 54910507, 9229017 ####[facility] [address] [place] [address] Auto Diffon 09-25-2022 Basophils/100 WBC (Bld) 3.0 % High 0.0-2.0 F [facility] Comment on above: Order Comment: Order Added by Discern Expert. Performed By: #### 1 3855438, 5431662, 2900614, 88126246, 0608948 ####[facility] [address] [place] [address] Basophils/Leukocytes Auto (Bld) [Pure # fraction] 0.1 E9/L Normal 0.0-0.2 [facility] Comment on above: Order Comment: Order Added by Discern Expert. Performed By: #### 1 6857545, 8050133, 3365211, 94321876, 6328590 ####[facility] [address] [place] [address] Eosinophils/100 WBC (Bld) 3.1 % Normal 0.0-8.0 [facility] Comment on above: Order Comment: Order Added by Discern Expert. Performed By: #### 1 4193315, 9745197, 0771639, 00312979, 6211864 ####[address] [place] [address] Eosinophils/Leukocytes Auto (Bld) [Pure # fraction] 0.1 E9/L Normal 0.0-0.5 [facility] Comment on above: Order Comment: Order Added by Discern Expert. Performed By: #### 1 3244772, 1386285, 4047167, 54933883, 6071989 ####[address] [address] Lymphocytes/100 WBC (Bld) 37.1 % Normal 14.0-50.0 [facility] Comment on above: Order Comment: Order Added by Discern Expert. Performed By: #### 1 4333297, 2019348, 5621525, 73288474, 9934893 ####[address] [address] Lymphocytes/Leukocytes Auto (Bld) [Pure # fraction] 1.3 E9/L Normal 1.0-4.0 [facility] Comment on above: Order Comment: Order Added by Discern Expert. Performed By: #### 1 0592412, 0383678, 0571975, 17148269, 9750578 ####[address] [place] [address] Monocytes/100 WBC (Bld) 8.5 % Normal 4.0-14.0 [facility] Comment on above: Order Comment: Order Added by Discern Expert. Performed By: #### 1 3020000, 1126194, 0783358, 54819410, 6735841 ####[address] [place] [address] Monocytes/Leukocytes Auto (Bld) [Pure # fraction] 0.3 E9/L Normal 0.2-1.0 [facility] Comment on above: Order Comment: Order Added by Discern Expert. Performed By: #### 1 0464627, 2824678, 9861348, 45704579, 5060869 ####[facility] [address] [place] [address] Neutrophils/100 WBC (Bld) 48.3 % Normal 36.0-75.0 [facility] Comment on above: Order Comment: Order Added by Discern Expert. Performed By: #### 1 1509701, 2923865, 5034332, 11270808, 6483962 ####[address] [place] [address] Neutrophils/Leukocytes Auto (Bld) [Pure # fraction] 1.7 E9/L Low 2.0-7.5 [facility] Comment on above: Order Comment: Order Added by Discern Expert. Performed By: #### 1 6089980, 0968120, 8916214, 40415070, 3862017 ####[address] [address] CBC w/ Auto Diffon 3 Erythrocyte distribution width (RBC) [Ratio] 16.6 % High 10.9-14.2 [facility] Comment on above: Performed By: #### 1 5995451, 0626242, 9771960, 28244017, 8413991 ####[address] [place] [address] Hematocrit (Bld) [Volume fraction] 29.4 % Low 34.0-46.0 [facility] Comment on above: Performed By: #### 1 1757733, 5487975, 6369225, 18035477, 5780392 ####[address] [place] [address] Hemoglobin (Bld) [Mass/Vol] 10.0 g/dL Low 12.0-16.0 [facility] Comment on above: Performed By: #### 1 4443453, 2087044, 7760054, 47646067, 3037526 ####[address] [place] [address] MCH (RBC) [Entitic mass] 34.5 pg High 27.0-34.0 [facility] Comment on above: Performed By: #### 1 6010184, 9001690, 5786252, 28010264, 4766742 ####[address] [address] MCHC (RBC) [Mass/Vol] 34.0 g/dL Normal 31.4-36.0 [facility] Comment on above: Performed By: #### 1 9994456, 0537106, 4017895, 11587081, 2235637 ####[place] [address] MCV (RBC) [Entitic vol] 101.5 fL High 80.0-100.0 F [facility] Comment on above: Performed By: #### 1 5129506, 4030612, 4880976, 86429515, 6648941 ####[address] [address] Platelet mean volume (Bld) [Entitic vol] 8.0 fL Normal 6.4-10.8 [facility] Comment on above: Performed By: #### 1 5066077, 9024938, 1873895, 42073025, 3218790 ####[address] [address] Platelets (Bld) [#/Vol] 177.0 E9/L Normal 150. 0-500. 0 [facility] Comment on above: Performed By: #### 1 0243863, 4787596, 5729159, 93803025, 9237887 ####[address] [address] RBC (Bld) [#/Vol] 2.9 E12/L Low 4.3-5.9 [facility] Comment on above: Performed By: #### 1 9094627, 4196093, 6699175, 73705113, 8984903 ####[address] [place] [address] WBC corrected for nucl RBC Auto (Bld) [#/Vol] 3.4 E9/L Low 4.0-11.0 [facility] Comment on above: Performed By: #### 1 3570804, 3367163, 0707806, 46839580, 1648610 ####[facility] [address] [place] [address] CHEMISTRYOrdered By: SYSTEM SYSTEM on 09-25-2022 Albumin [...] 140 mmol/L Normal 135 - 145 mmol/L [facility] Remisol Urea nitrogen [Mass/Vol] 24 mg/dL High 5 - 21 mg/dL [facility] Remisol Urea nitrogen/Creatinine [Mass ratio] 22 mg/mg High 10 - 20 [facility] Remisol CMPon 09-25-2022 Albumin [Mass/Vol] 3.1 g/dL Low 3.3-5.0 [facility] Comment on above: Performed By: #### 1 6059673, 8630624, 5623758, 41923987, 4694350 ####[facility] [address] [place] [address] Albumin/Globulin (S) [Mass conc ratio] 0.8 Low 1.1-2.2 [facility] Comment on above: Performed By: #### 1 7407708, 2580610, 7976147, 17257703, 0513709 ####[facility] [address] [place] [address] ALP [Catalytic activity/Vol] 131 Int._Unit/L High 21-98 [facility] Comment on above: Performed By: #### 1 3337167, 8843184, 1904311, 90429039, 5493044 ####[facility] [address] [place] [address] ALT No additional P-5'-P [Catalytic activity/Vol] 13 Int._Unit/L Normal 6-46 [facility] Comment on above: Performed By: #### 1 7406489, 6002278, 9426768, 31459100, 7546416 ####[facility] [address] [place] [address] Anion gap [Moles/Vol] 5 mmol/L Low 6-16 [facility] Comment on above: Performed By: #### 1 6439093, 2238321, 9358646, 80942449, 8900997 ####[facility] [address] [place] [address] AST [Catalytic activity/Vol] 16 Int._Unit/L Normal 5-43 [facility] Comment on above: Performed By: #### 1 1811690, 5697925, 2485468, 32184145, 3710067 ####[facility] [address] [place] [address] Bilirubin [Mass/Vol] 0.5 mg/dL Normal 0.0-1.1 [facility] Comment on above: Performed By: #### 1 9365151, 8090836, 9695021, 03056808, 3395581 ####[address] [place] [address] Calcium [Mass/Vol] 8.9 mg/dL Normal 8.9-11.1 [facility] Comment on above: Performed By: #### 1 9203680, 9882560, 9945510, 79541547, 7055624 ####[facility] [address] [place] [address] Chloride [Moles/Vol] 114 mmol/L High 101-111 [facility] Comment on above: Performed By: #### 1 4787942, 8581471, 2247791, 92548434, 6120697 ####[facility] [address] [place] [address] CO2 [Moles/Vol] 25 mmol/L Normal 21-31 [facility] Comment on above: Performed By: #### 1 0078564, 7034251, 7611762, 76163854, 8377842 ####[facility] [address] [place] [address] Creatinine [Mass/Vol] 1.1 mg/dL Normal 0.5-1.3 [facility] Comment on above: Performed By: #### 1 1727203, 0242999, 6826309, 39673865, 2875061 ####[address] [place] [address] Globulin (S) [Mass/Vol] 4.0 g/dL Normal 1.4-4.0 F [facility] Comment on above: Performed By: #### 1 2846666, 2733774, 4222278, 34891984, 1150008 ####[facility] [address] [place] [address] Glucose [Mass/Vol] 134 mg/dL Normal 55-199 [facility] Comment on above: Result Comment: If t his glucose result represents a fasting glucose, interpretation should refer to the following reference range: 55-99 mg/dL Performed By: #### 1 9302437, 8223302, 3537880, 50995959, 9376552 ####[facility] [address] [place] [address] Potassium [Moles/Vol] 3.8 mmol/L Normal 3.5-5.3 [facility] Comment on above: Performed By: #### 1 6594185, 3466158, 5616948, 29228978, 6950779 ####[facility] [address] [place] [address] Protein [Mass/Vol] 7.1 g/dL Normal 6.0-7.8 [facility] Comment on above: Performed By: #### 1 6223092, 1192990, 2768980, 11179246, 7121341 ####[facility] [address] [place] [address] Sodium [Moles/Vol] 140 mmol/L Normal 135-145 [facility] Comment on above: Performed By: #### 1 2707835, 1461683, 7784520, 90294230, 8665505 ####[facility] [address] [place] [address] Urea nitrogen [Mass/Vol] 24 mg/dL High 5-21 [facility] Comment on above: Performed By: #### 1 6300943, 3556548, 3328127, 48177870, 6214570 ####[facility] [address] [place] [address] Urea nitrogen/Creatinine [Mass ratio] 22 No Units High 10-20 [facility] Comment on above: Performed By: #### 1 3083542, 1513858, 9806682, 44910274, 9323051 ####[facility] [address] [place] [address] Consent for Treatmenton 06 Consent for Treatment [id number]:12 7 Normal [facility] HEMATOLOGYOrdered By: SYSTEM SYSTEM on [...] ONC - Otheron 09-25-2022 ONC - Other [id number]: 127 Normal [facility] eGFRon 09-25-2022 GFR/1.73 sq M.predicted among non-blacks MDRD (S/P/Bld) [Vol rate/Area] 53 mL/min/1.73 m2 Low >=59 [facility] Comment on above: Order Comment: Order added by Discern Expert. Result Comment: Manager [employer] aubrey kidney disease could be indicated at eGFR's of less than 60 mL/min/1.73m2. Kidney failure is indicated at less than 15 mL/min/1.73m2. Performed By: #### 1 4841684, 7444376, 6527460, 45315376, 6280827 ####[facility] [address] [place] [address] Ferritinon 09-10-2022 Ferritin [Mass/Vol] 302 ng/mL Normal 11-307 [facility] Comment on above: Result Comment: NORM ALS MEN <30 YRS 16-132 ng/mL MEN >30 YRS 8-338 ng/mL WOMEN (PREMEN) 6-104 ng/mL WOMEN (POSTMEN) 12-210 ng/mL Performed By: #### 2 934456, 0503250, 7927811, 9527851, 5458057, 2599445, 8984663, 75336649, 7149323, 3430978, 20304263 ####[facility] [address] [place] [address] Folateon 09-10-2022 Folate [Mass/Vol] 9.6 ng/mL Normal >=6.7 [facility] Comment on above: Performed By: #### 2 675581, 6326495, 8858295, 2393544, 0413046, 2154683, 4911508, 59071041, 6026698, 4647911, 50553916 ####[facility] [address] [place] [address] Vit B12on 09-10-2022 Cobalamin (Vitamin B12) [Mass/Vol] 203 pg/mL Normal 50-1500 [facility] Comment on above: Performed By: #### 2 257634, 0118795, 2536320, 2359799, 4481949, 4523060, 2382300, 90064436, 2641608, 8162316, 81984198 ####[facility] [address] [place] [address] CA 27 29on 09-09-2022 Cancer Ag 27-29 Qn 15.2 unit/mL Invalid Interpretation Code 0.0-38.6 [facility] Comment on above: Result Comment: [employer] Immunochemiluminometric Methodology (ICMA)Values obtained with different assay methods or kits cannot be usedinterchangeably. Results cannot be interpreted as absolute evidenceof the presence or absence of malignant disease.Performed at: [facility] [place] [address] [id number] PhD [place] Avelar Performed By: #### 2 520787, 3222833, 7486674, 6823880, 3467680, 5760856, 4627414, 64095673, 2048685, 9092736, 10803349 ####[facility] [address] [place] [address] Auto Diffon 09-08-2022 Basophils/100 WBC (Bld) 0.4 % Normal 0.0-2.0 [facility] Comment on above: Order Comment: Order Added by Discern Expert. Performed By: #### 2 876290, 2570994, 8668588, 1039999, 5168191, 4281579, 4110538, 98253839, 7601952, 1794616, 42898431 ####[address] [place] [address] Basophils/Leukocytes Auto (Bld) [Pure # fraction] 0.0 E9/L Normal 0.0-0.2 [facility] Comment on above: Order Comment: Order Added by Discern Expert. Performed By: #### 2 378140, 7492096, 6996366, 0717498, 5125398, 0395580, 5558032, 05266837, 7140846, 8832887, 52709643 ####[address] [place] [address] Eosinophils/100 WBC (Bld) 1.4 % Normal 0.0-8.0 [facility] Comment on above: Order Comment: Order Added by Discern Expert. Performed By: #### 2 566307, 4343543, 7788561, 6708845, 4918848, 0731686, 6251664, 01805174, 6582645, 1337307, 93133488 ####[facility] [address] [place] [address] Eosinophils/Leukocytes Auto (Bld) [Pure # fraction] 0.1 E9/L Normal 0.0-0.5 [facility] Comment on above: Order Comment: Order Added by Discern Expert. Performed By: #### 2 143900, 8204840, 3436382, 5880606, 8077085, 0554671, 8071654, 31841354, 2420322, 7753983, 65017779 ####[facility] [address] [place] [address] Lymphocytes/100 WBC (Bld) 15.3 % Normal 14.0-50.0 [facility] Comment on above: Order Comment: Order Added by Discern Expert. Performed By: #### 2 124170, 9152045, 9346686, 3755769, 6300627, 7893274, 9071608, 75204914, 7687150, 9283436, 07069070 ####[address] [place] [address] Lymphocytes/Leukocytes Auto (Bld) [Pure # fraction] 0.8 E9/L Low 1.0-4.0 [facility] Comment on above: Order Comment: Order Added by Discern Expert. Performed By: #### 2 745141, 5361389, 3631929, 9009494, 7649880, 3107406, 3503165, 42507729, 8393145, 5172887, 82826747 ####[address] [address] Monocytes/100 WBC (Bld) 2.8 % Low 4.0-14.0 [facility] Comment on above: Order Comment: Order Added by Discern Expert. Performed By: #### 2 796660, 8305287, 8904274, 2254750, 8176742, 6421148, 9657151, 08563072, 3326564, 7691889, 19143895 ####[address] [place] [address] Monocytes/Leukocytes Auto (Bld) [Pure # fraction] 0.1 E9/L Low 0.2-1.0 [facility] Comment on above: Order Comment: Order Added by Discern Expert. Performed By: #### 2 959459, 8168863, 5856582, 2732301, 3745431, 6176437, 5328950, 52553583, 1258351, 8808111, 49030540 ####[address] [place] [address] Neutrophils/100 WBC (Bld) 80.1 % High 36.0-75.0 [facility] Comment on above: Order Comment: Order Added by Discern Expert. Performed By: #### 2 655017, 7730185, 1113390, 1144366, 7232867, 4049360, 5931194, 50903094, 5873244, 7176853, 70916643 ####[facility] [address] [place] [address] Neutrophils/Leukocytes Auto (Bld) [Pure # fraction] 4.2 E9/L Normal 2.0-7.5 [facility] Comment on above: Order Comment: Order Added by Discern Expert. Performed By: #### 2 719353, 1075635, 1712774, 0089938, 8766866, 1524198, 9065176, 35964149, 5903986, 6024378, 25793644 ####[address] [place] [address] CBC w/ Auto Diffon 3 Erythrocyte distribution width (RBC) [Ratio] 15.4 % High 10.9-14.2 [facility] Comment on above: Performed By: #### 2 086945, 3833293, 9664892, 8298356, 0192572, 3565193, 2189105, 61641694, 9029015, 4300283, 32630594 ####[address] [place] [address] Hematocrit (Bld) [Volume fraction] 30.9 % Low 34.0-46.0 [facility] Comment on above: Performed By: #### 2 806029, 9586078, 9767393, 1981151, 8474696, 3490840, 7331135, 03509561, 2104855, 1974867, 46240255 ####[facility] [address] [place] [address] Hemoglobin (Bld) [Mass/Vol] 10.3 g/dL Low 12.0-16.0 [facility] Comment on above: Performed By: #### 2 259407, 4755728, 2603246, 2635697, 2815389, 6524158, 7979303, 59651206, 3777324, 6398435, 13625551 ####[facility] [address] [place] [address] MCH (RBC) [Entitic mass] 33.7 pg Normal 27.0-34.0 [facility] Comment on above: Performed By: #### 2 384307, 8388076, 9449603, 2283359, 7765863, 9167375, 3280182, 67319060, 2270032, 9461929, 48305222 ####[address] [place] [address] MCHC (RBC) [Mass/Vol] 33.1 g/dL Normal 31.4-36.0 [facility] Comment on above: Performed By: #### 2 995010, 7740198, 6910044, 7916432, 0823045, 6728745, 3653380, 48389186, 4205190, 1153964, 97914534 ####[address] [address] MCV (RBC) [Entitic vol] 101.8 fL High 80.0-100.0 [facility] Comment on above: Performed By: #### 2 834852, 8292803, 2659389, 5800534, 5846787, 1420139, 1970167, 72789481, 7530506, 7898204, 53392749 ####[facility] [address] [place] [address] Platelet mean volume (Bld) [Entitic vol] 7.2 fL Normal 6.4-10.8 [facility] Comment on above: Performed By: #### 2 679965, 7197303, 3919546, 4776755, 9245492, 3200285, 1986516, 40191328, 3120538, 8927192, 26515075 ####[address] [address] Platelets (Bld) [#/Vol] 307.0 E9/L Normal 150. 0-500. 0 [facility] Comment on above: Performed By: #### 2 327576, 2870371, 0287945, 6649075, 2320776, 7139953, 0887372, 69575173, 8216753, 7880384, 65598022 ####[facility] [address] [place] [address] RBC (Bld) [#/Vol] 3.0 E12/L Low 4.3-5.9 [facility] Comment on above: Performed By: #### 2 831830, 1442293, 9504617, 7558219, 3143556, 5369154, 3372453, 87179958, 2987880, 2094797, 00879294 ####[facility] [address] [place] [address] WBC corrected for nucl RBC Auto (Bld) [#/Vol] 5.3 E9/L Normal 4.0-11.0 [facility] Comment on above: Performed By: #### 2 368751, 9516838, 2961920, 6009549, 9774477, 2817761, 9335852, 29962310, 0750085, 6908195, 69500470 ####[facility] [address] [place] [address] CMPon 09-08-2022 Albumin [Mass/Vol] 3.1 g/dL Low 3.3-5.0 [facility] Comment on above: Performed By: #### 2 219161, 7402364, 4408486, 6653874, 5962419, 6912405, 8410865, 86820435, 8515511, 7987186, 89261142 ####[facility] [address] [place] [address] Albumin/Globulin (S) [Mass conc ratio] 0.8 Low 1.1-2.2 [facility] Comment on above: Performed By: #### 2 670551, 8810402, 3656717, 0405630, 7005834, 6483900, 5669953, 91441584, 8176450, 0971859, 90427259 ####[facility] [address] [place] [address] ALP [Catalytic activity/Vol] 156 Int._Unit/L High 21-98 [facility] Comment on above: Performed By: #### 2 635087, 5880504, 2643851, 6229358, 8858921, 3578521, 1521184, 91186118, 9861486, 2350833, 84148531 ####[facility] [address] [place] [address] ALT No additional P-5'-P [Catalytic activity/Vol] 16 Int._Unit/L Normal 6-46 [facility] Comment on above: Performed By: #### 2 958937, 0644239, 7710848, 1764015, 4156190, 9823618, 2932869, 35999932, 2873197, 9603766, 66172077 ####[address] [address] Anion gap [Moles/Vol] 11 mmol/L Normal 6-16 [facility] Comment on above: Performed By: #### 2 097841, 9310132, 7401340, 2927469, 9406191, 0783133, 5040121, 35875396, 0797677, 5110183, 46816143 ####[facility] [address] [place] [address] AST [Catalytic activity/Vol] 17 Int._Unit/L Normal 5-43 [facility] Comment on above: Performed By: #### 2 349429, 3314116, 2295041, 6441991, 8937010, 9874958, 6310472, 26266117, 7632709, 8670564, 72501770 ####[facility] [address] [place] [address] Bilirubin [Mass/Vol] 0.8 mg/dL Normal 0.0-1.1 [facility] Comment on above: Performed By: #### 2 341284, 1943365, 5405788, 5581187, 5914092, 9129418, 1953968, 87309772, 7649806, 4259133, 70882660 ####[facility] [address] [place] [address] Calcium [Mass/Vol] 8.7 mg/dL Low 8.9-11.1 [facility] Comment on above: Performed By: #### 2 219161, 4686445, 1242891, 4502805, 4876013, 7627509, 9318258, 78616184, 5873396, 0435717, 08858839 ####[facility] [address] [place] [address] Chloride [Moles/Vol] 109 mmol/L Normal 101-111 [facility] Comment on above: Performed By: #### 2 519558, 7529013, 7525160, 0642528, 2526174, 3185213, 3754359, 40028116, 5232742, 6522235, 63877005 ####[facility] [address] [place] [address] CO2 [Moles/Vol] 23 mmol/L Normal 21-31 [facility] Comment on above: Performed By: #### 2 018972, 8000263, 4334744, 3850131, 7508018, 4408051, 7070749, 64443778, 7263052, 3882494, 54553960 ####[facility] [address] [place] [address] Creatinine [Mass/Vol] 1.3 mg/dL Normal 0.5-1.3 [facility] Comment on above: Performed By: #### 2 051694, 7521973, 5635506, 3712164, 5075651, 0345727, 0717874, 32274638, 1194386, 4483121, 47015191 ####[facility] [address] [place] [address] Globulin (S) [Mass/Vol] 4.0 g/dL Normal 1.4-4.0 [facility] Comment on above: Performed By: #### 2 158360, 7838343, 4923824, 6826219, 3767338, 2293322, 4827991, 98920370, 2413074, 4864607, 61308508 ####[facility] [address] [place] [address] Glucose [Mass/Vol] 133 mg/dL Normal 55-199 [facility] Comment on above: Result Comment: If t his glucose result represents a fasting glucose, interpretation should refer to the following reference range: 55-99 mg/dL Performed By: #### 2 311324, 2745427, 7314418, 4939939, 5013119, 5237329, 4044382, 18635949, 4525484, 3243026, 23030422 ####[facility] [address] [place] [address] Potassium [Moles/Vol] 4.2 mmol/L Normal 3.5-5.3 [facility] Comment on above: Performed By: #### 2 825727, 9006854, 0236473, 0801115, 1488952, 6407874, 0686795, 71127545, 9968664, 5410723, 36527591 ####[facility] [address] [place] [address] Protein [Mass/Vol] 7.1 g/dL Normal 6.0-7.8 [facility] Comment on above: Performed By: #### 2 088253, 9604810, 8505519, 3583567, 1294576, 5962176, 3724322, 76049769, 8102381, 3039527, 77856198 ####[facility] [address] [place] [address] Sodium [Moles/Vol] 139 mmol/L Normal 135-145 [facility] Comment on above: Performed By: #### 2 840729, 3279627, 7175538, 2643676, 0574060, 5681176, 8132173, 72262871, 9263334, 1626655, 23033728 ####[facility] [address] [place] [address] Urea nitrogen [Mass/Vol] 28 mg/dL High 5- [facility] Comment on above: Performed By: #### 2 738501, 5995151, 6014524, 1888971, 1584845, 2211067, 1759315, 02205130, 8157466, 6179665, 15853788 ####[facility] [address] [place] [address] Urea nitrogen/Creatinine [Mass ratio] 22 No Units High 10- [facility] Comment on above: Performed By: #### 2 921794, 3920701, 2204634, 6363969, 8034611, 7229694, 9175986, 29928085, 1834244, 6456590, 13833944 ####[facility] [address] [place] [address] Consent for Treatmenton 08-21 Consent for Treatment [id number]:12 7 Normal [facility] Consent for Treatment [id number]:12 7 [facility] Discharge Instructionson Discharge Instructions [id number]:1 27 Normal [facility] ED Clinical Summaryon 2022 ED Clinical Summary Normal [facility] ED Note-Physicianon 09-09-19 ED Note-Physician Normal [facility] Comment on above: Result Comment: Elec tronically Signed By: Mendez Lucero PA-C\.br\Date and Time Signed: 09/08/22 16:09 EDT\.br\Electronically Co-Signed By: Pedro Nava DO.br\Date and Time Co-Signed: 09/08/22 16:54 EDT ED Patient Education Noteon 09-08-2022 ED Patient Education Note Normal [facility] ED Patient Summaryon 023 ED Patient Summary Normal [facility] Ironon 09-08-2022 Iron [Mass/Vol] 48 microgram/dL Normal 35-153 [facility] Comment on above: Performed By: #### 2 845900, 3868016, 7998156, 2960624, 3582863, 9491729, 5245723, 92703201, 5251965, 9245933, 49448449 ####[facility] [address] [place] [address] Iron Saturationon 09-08-2022 Iron binding capacity [Mass/Vol] 239 microgram/dL Low 250-400 [facility] Comment on above: Performed By: #### 2 463013, 7648273, 7154313, 0387252, 3903179, 8818869, 6894520, 86702214, 1118585, 2943662, 93497107 ####[facility] [address] [place] [address] Iron saturation [Mass fraction] 20 % Normal 20-50 [facility] Comment on above: Performed By: #### 2 397720, 8399727, 7626074, 4565658, 3526327, 3870609, 2179758, 85032084, 9436183, 7926725, 72378786 ####[facility] [address] [place] [address] Transferrinon 09-08-2022 Transferrin [Mass/Vol] 170 mg/dL Low 200-370 [facility] Comment on above: Performed By: #### 2 658397, 6831675, 7401614, 9395715, 3493132, 5371429, 8226601, 82880725, 9955008, 2731873, 12053769 ####[facility] [address] [place] [address] eGFRon 09-08-2022 GFR/1.73 sq M.predicted among non-blacks MDRD (S/P/Bld) [Vol rate/Area] 43 mL/min/1.73 m2 Low >=59 [facility] Comment on above: Order Comment: Order added by Discern Expert. Result Comment: [employer] aubrey kidney disease could be indicated at eGFR's of less than 60 mL/min/1.73m2. Kidney failure is indicated at less than 15 mL/min/1.73m2. Performed By: #### 2 756169, 6202212, 0765808, 8086112, 7855522, 6627190, 4352490, 71494184, 4785035, 1380131, 05108069 ####[facility] [address] [place] [address] Coding Summary.on 08-04-2022 Coding Summary. Normal [facility] Coding Summary.on 08-02-2022 Coding Summary. Normal [facility] CA 27 29on 08-01-2022 Cancer Ag 27-29 Qn 13.4 unit/mL Invalid Interpretation Code 0.0-38.6 [facility] Comment on above: Result Comment: ZAOZAOaur Immunochemiluminometric Methodology (ICMA)Values obtained with different assay methods or kits cannot be usedinterchangeably. Results cannot be interpreted as absolute evidenceof the presence or absence of malignant disease.Performed at: [facility] [id number] PhD [place] Avelar Performed By: #### 2 505169, 3874369, 7243322, 92223655, 95838398 ####[facility] [address] [place] [address] Consent for Treatmenton 07-21 Consent for Treatment [id number]:12 7 Normal [facility] Oncology Noteon 08-01-2022 Oncology Note Normal [facility] Comment on above: Result Comment: Elec tronically Signed By: Jane FARMER, Yolande Houston\.br\Date and Time Signed: 08/01/22 15:08 EDT Oncology Progress Noteon Oncology Progress Note Normal [facility] Auto Diffon 07-30-2022 Basophils/100 WBC (Bld) 2.7 % High 0.0-2.0 [facility] Comment on above: Order Comment: Order Added by Discern Expert. Performed By: #### 2 494557, 2924456, 3865706, 41660886, 15263438 ####[address] [place] [address] Basophils/Leukocytes Auto (Bld) [Pure # fraction] 0.1 E9/L Normal 0.0-0.2 [facility] Comment on above: Order Comment: Order Added by Discern Expert. Performed By: #### 2 719115, 6956307, 3818332, 29361914, 81092600 ####[address] [address] Eosinophils/100 WBC (Bld) 3.5 % Normal 0.0-8.0 [facility] Comment on above: Order Comment: Order Added by Discern Expert. Performed By: #### 2 895400, 9668217, 7869285, 90639981, 72752426 ####[address] [address] Eosinophils/Leukocytes Auto (Bld) [Pure # fraction] 0.1 E9/L Normal 0.0-0.5 [facility] Comment on above: Order Comment: Order Added by Discern Expert. Performed By: #### 2 308175, 7681882, 7710744, 60526590, 18807247 ####[address] [address] Lymphocytes/100 WBC (Bld) 22.7 % Normal 14.0-50.0 [facility] Comment on above: Order Comment: Order Added by Discern Expert. Performed By: #### 2 710690, 9046666, 8493189, 21835155, 96533971 ####[address] [address] Lymphocytes/Leukocytes Auto (Bld) [Pure # fraction] 0.8 E9/L Low 1.0-4.0 [facility] Comment on above: Order Comment: Order Added by Discern Expert. Performed By: #### 2 253213, 5304491, 4220518, 24205435, 24846075 ####[address] [place] [address] Monocytes/100 WBC (Bld) 3.2 % Low 4.0-14.0 [facility] Comment on above: Order Comment: Order Added by Discern Expert. Performed By: #### 2 181812, 3735082, 2445539, 79381677, 32482247 ####[address] [place] [address] Monocytes/Leukocytes Auto (Bld) [Pure # fraction] 0.1 E9/L Low 0.2-1.0 [facility] Comment on above: Order Comment: Order Added by Discern Expert. Performed By: #### 2 968038, 7492522, 3260654, 77381997, 07066095 ####[address] [address] Neutrophils/100 WBC (Bld) 67.9 % Normal 36.0-75.0 [facility] Comment on above: Order Comment: Order Added by Discern Expert. Performed By: #### 2 961078, 6479885, 8886697, 80161890, 63426195 ####[address] [address] Neutrophils/Leukocytes Auto (Bld) [Pure # fraction] 2.5 E9/L Normal 2.0-7.5 [facility] Comment on above: Order Comment: Order Added by Discern Expert. Performed By: #### 2 237950, 3999203, 1098593, 59404028, 12031821 ####[address] [address] CBC w/ Auto Diffon 3 Erythrocyte distribution width (RBC) [Ratio] 15.9 % High 10.9-14.2 [facility] Comment on above: Performed By: #### 2 463740, 2817406, 9289588, 13971955, 97586901 ####[address] [address] Hematocrit (Bld) [Volume fraction] 32.4 % Low 34.0-46.0 [facility] Comment on above: Performed By: #### 2 852816, 2571544, 5311237, 29850478, 45374317 ####[facility] [address] [place] [address] Hemoglobin (Bld) [Mass/Vol] 10.5 g/dL Low 12.0-16.0 [facility] Comment on above: Performed By: #### 2 219083, 8953871, 9926068, 63622100, 15219281 ####[address] [address] MCH (RBC) [Entitic mass] 33.6 pg Normal 27.0-34.0 [facility] Comment on above: Performed By: #### 2 721693, 4370795, 6741928, 73269926, 93008870 ####[address] [address] MCHC (RBC) [Mass/Vol] 32.5 g/dL Normal 31.4-36.0 [facility] Comment on above: Performed By: #### 2 748579, 9011264, 5418348, 48123879, 92150587 ####[address] [address] MCV (RBC) [Entitic vol] 103.2 fL High 80.0-100.0 [facility] Comment on above: Performed By: #### 2 996448, 9967471, 8854565, 86190593, 37758789 ####[address] [address] Platelet mean volume (Bld) [Entitic vol] 7.4 fL Normal 6.4-10.8 [facility] Comment on above: Performed By: #### 2 420660, 2827718, 6537962, 46910747, 97414399 ####[address] [address] Platelets (Bld) [#/Vol] 142.0 E9/L Low 150. 0-500. 0 [facility] Comment on above: Performed By: #### 2 227101, 5696755, 1987887, 69103860, 84961370 ####[facility] [address] [place] [address] RBC (Bld) [#/Vol] 3.1 E12/L Low 4.3-5.9 [facility] Comment on above: Performed By: #### 2 128994, 3793115, 5528193, 31515207, 85962008 ####[facility] [address] [place] [address] WBC corrected for nucl RBC Auto (Bld) [#/Vol] 3.7 E9/L Low 4.0-11.0 [facility] Comment on above: Performed By: #### 2 475750, 3214338, 3041243, 85253295, 26466785 ####[facility] [address] [place] [address] CHEMISTRYOrdered By: SYSTEM SYSTEM on 07-30-2022 Albumin [...] 40 mL/min/1.73 m2 Low >=59mL/min /1.73 m2 [facility] [place] S Globulin (S) [Mass/Vol] 3.2 g/dL Normal 1.4 - 4.0 gm/dL [facility] Glucose [Mass/Vol] 147 mg/dL Normal 55 - 199 mg/dL [facility] Potassium [Moles/Vol] 4.0 mmol/L Normal 3.5 - 5.3 mmol/L [facility] Protein [Mass/Vol] 6.5 g/dL Normal 6.0 - 7.8 gm/dL [facility] Sodium [Moles/Vol] 136 mmol/L Normal 135 - 145 mmol/L [facility] Urea nitrogen [Mass/Vol] 33 mg/dL High 5 - 21 mg/dL [facility]isol Urea nitrogen/Creatinine [Mass ratio] 25 mg/mg High 10 - 20 [facility] Remisol CMPon 07-30-2022 Albumin [Mass/Vol] 3.3 g/dL Normal 3.3-5.0 [facility] Comment on above: Performed By: #### 2 388187, 1659806, 7162025, 14360628, 07394265 ####[facility] [address] [place] [address] Albumin/Globulin (S) [Mass conc ratio] 1.0 Low 1.1-2.2 [facility] Comment on above: Performed By: #### 2 211413, 4256607, 6126188, 13326662, 71760423 ####[facility] [address] [place] [address] ALP [Catalytic activity/Vol] 121 Int._Unit/L High 21-98 [facility] Comment on above: Performed By: #### 2 828121, 2527822, 5661813, 05210636, 13927520 ####[facility] [address] [place] [address] ALT No additional P-5'-P [Catalytic activity/Vol] 15 Int._Unit/L Normal 6-46 [facility] Comment on above: Performed By: #### 2 377152, 3253904, 1602655, 03284524, 28895403 ####[facility] [address] [place] [address] Anion gap [Moles/Vol] 11 mmol/L Normal 6-16 [facility] Comment on above: Performed By: #### 2 356156, 9267046, 2597524, 31071465, 17270415 ####[facility] [address] [place] [address] AST [Catalytic activity/Vol] 15 Int._Unit/L Normal 5-43 [facility] Comment on above: Performed By: #### 2 234217, 3010350, 3889944, 29799270, 21078624 ####[facility] [address] [place] [address] Bilirubin [Mass/Vol] 0.9 mg/dL Normal 0.0-1.1 [facility] Comment on above: Performed By: #### 2 122300, 6879256, 1327457, 12999405, 39368056 ####[facility] [address] [place] [address] Calcium [Mass/Vol] 8.5 mg/dL Low 8.9-11.1 [facility] Comment on above: Performed By: #### 2 644517, 1745823, 8033744, 66129125, 61470765 ####[facility] [address] [place] [address] Chloride [Moles/Vol] 107 mmol/L Normal 101-111 [facility] Comment on above: Performed By: #### 2 246755, 3939296, 9316445, 10753420, 85719013 ####[facility] [address] [place] [address] CO2 [Moles/Vol] 22 mmol/L Normal 21-31 [facility] Comment on above: Performed By: #### 2 662343, 0388132, 4377933, 76032548, 70464598 ####[facility] [address] [place] [address] Creatinine [Mass/Vol] 1.3 mg/dL Normal 0.5-1.3 [facility] Comment on above: Performed By: #### 2 293769, 7733713, 8198930, 72556120, 17397895 ####[facility] [address] [place] [address] Globulin (S) [Mass/Vol] 3.2 g/dL Normal 1.4-4.0 [facility] Comment on above: Performed By: #### 2 606386, 3759611, 0774241, 82702071, 63926014 ####[facility] [address] [place] [address] Glucose [Mass/Vol] 147 mg/dL Normal 55-199 [facility] Comment on above: Result Comment: If t his glucose result represents a fasting glucose, interpretation should refer to the following reference range: 55-99 mg/dL Performed By: #### 2 121459, 2259343, 9113230, 60483898, 18040814 ####[facility] [address] [place] [address] Potassium [Moles/Vol] 4.0 mmol/L Normal 3.5-5.3 [facility] Comment on above: Performed By: #### 2 470375, 3530800, 8705813, 08193754, 63251520 ####[facility] [address] [place] [address] Protein [Mass/Vol] 6.5 g/dL Normal 6.0-7.8 [facility] Comment on above: Performed By: #### 2 037509, 1801326, 3018971, 13721938, 80089016 ####[facility] [address] [place] [address] Sodium [Moles/Vol] 136 mmol/L Normal 135-145 [facility] Comment on above: Performed By: #### 2 298885, 0477072, 4803456, 57876497, 07220873 ####[facility] [address] [place] [address] Urea nitrogen [Mass/Vol] 33 mg/dL High 5-21 [facility] Comment on above: Performed By: #### 2 795840, 7677767, 5179908, 91482695, 72041321 ####[facility] [address] [place] [address] Urea nitrogen/Creatinine [Mass ratio] 25 No Units High 10-20 [facility] Comment on above: Performed By: #### 2 046214, 4177053, 8216135, 78324445, 10872499 ####[facility] [address] [place] [address] Consent for Treatmenton 07-21 Consent for Treatment [id number]:12 7 Normal [facility] HEMATOLOGYOrdered By: SYSTEM SYSTEM on [...] [Vol rate/Area] 49 mL/min/1.73 m2 Low >=59 [facility] Comment on above: Order Comment: Order added by Discern Expert. Result Comment: eGFR is race adjusted. AA=. Performed By: #### 2 930517, 4196809, 9621972, 61719981, 12049549 ####[facility] [address] [place] [address] GFR/1.73 sq M.predicted among non-blacks MDRD (S/P/Bld) [Vol rate/Area] 40 mL/min/1.73 m2 Low >=59 [facility] Comment on above: Order Comment: Order added by Discern Expert. Result Comment: [employer] aubrey kidney disease could be indicated at eGFR's of less than 60 mL/min/1.73m2. Kidney failure is indicated at less than 15 mL/min/1.73m2. Performed By: #### 2 552907, 0701837, 6550589, 84978848, 94536391 ####[facility] [address] [place] [address] Coding Summary.on 07-27-2022 Coding Summary. Normal [facility] NM PET w/ CT Scan Skull Base to Midthighon 07-26-2022 NM PET w/ CT Scan Skull Base to Midthigh Normal [facility] RAD - MISCon 07-26-2022 RAD - MISC [id number]:1 27 Normal [facility] Consent for Treatmenton Consent for Treatment [id number]:12 7 Normal [facility] Physician Orderon 07-25-2022 Physician Order [id number]:12 7 Normal [facility] Coding Summary.on 07-13-2022 Coding Summary. Normal [facility] CA 27 29on 07-10-2022 Cancer Ag 27-29 Qn 14.4 unit/mL Invalid Interpretation Code 0.0-38.6 [facility] Comment on above: Result Comment: [facility] Centaur Immunochemiluminometric Methodology (ICMA)Values obtained with different assay methods or kits cannot be usedinterchangeably. Results cannot be interpreted as absolute evidenceof the presence or absence of malignant disease.Performed at: [facility] [place], [place] [id number] PhD [place] Avelar Performed By: #### 1 [id number], 7442821, 7529774, 19992827, 3050965 ####[facility] [address] [place] [address] Auto Diffon 07-09-2022 Basophils/100 WBC (Bld) 2.7 % High 0.0-2.0 F [facility] Comment on above: Order Comment: Order Added by Discern Expert. Performed By: #### 1 4185236, 4217300, 0696030, 16720534, 7158774 ####[address] [place] [address] Basophils/Leukocytes Auto (Bld) [Pure # fraction] 0.1 E9/L Normal 0.0-0.2 [facility] Comment on above: Order Comment: Order Added by Discern Expert. Performed By: #### 1 3079828, 8755631, 2251183, 02108277, 7789439 ####[facility] [address] [place] [address] Eosinophils/100 WBC (Bld) 1.9 % Normal 0.0-8.0 [facility] Comment on above: Order Comment: Order Added by Discern Expert. Performed By: #### 1 9959600, 3244760, 8220871, 36147456, 9859119 ####[facility] [address] [place] [address] Eosinophils/Leukocytes Auto (Bld) [Pure # fraction] 0.1 E9/L Normal 0.0-0.5 [facility] Comment on above: Order Comment: Order Added by Discern Expert. Performed By: #### 1 6091560, 2291647, 1335192, 38864503, 8834576 ####[facility] [address] [place] [address] Lymphocytes/100 WBC (Bld) 31.4 % Normal 14.0-50.0 [facility] Comment on above: Order Comment: Order Added by Discern Expert. Performed By: #### 1 4156013, 5309666, 2761159, 95632631, 8815586 ####[facility] [address] [place] [address] Lymphocytes/Leukocytes Auto (Bld) [Pure # fraction] 1.3 E9/L Normal 1.0-4.0 [facility] Comment on above: Order Comment: Order Added by Discern Expert. Performed By: #### 1 5453062, 5587083, 1343814, 13169735, 8421192 ####[address] [address] Monocytes/100 WBC (Bld) 5.5 % Normal 4.0-14.0 [facility] Comment on above: Order Comment: Order Added by Discern Expert. Performed By: #### 1 6818634, 3381590, 1992666, 86824604, 4468447 ####[address] [address] Monocytes/Leukocytes Auto (Bld) [Pure # fraction] 0.2 E9/L Normal 0.2-1.0 [facility] Comment on above: Order Comment: Order Added by Discern Expert. Performed By: #### 1 9009305, 4099323, 1745123, 56690018, 2450899 ####[facility] [address] [place] [address] Neutrophils/100 WBC (Bld) 58.5 % Normal 36.0-75.0 [facility] Comment on above: Order Comment: Order Added by Discern Expert. Performed By: #### 1 9897234, 4149612, 9620183, 47601175, 4425857 ####[facility] [address] [place] [address] Neutrophils/Leukocytes Auto (Bld) [Pure # fraction] 2.5 E9/L Normal 2.0-7.5 [facility] Comment on above: Order Comment: Order Added by Discern Expert. Performed By: #### 1 8252989, 1241939, 2193660, 04201625, 2426512 ####[address] [place] [address] CBC w/ Auto Diffon Erythrocyte distribution width (RBC) [Ratio] 17.1 % High 10.9-14.2 [facility] Comment on above: Performed By: #### 1 7475486, 6981681, 5222210, 88197742, 9037254 ####[address] [place] [address] Hematocrit (Bld) [Volume fraction] 36.3 % Normal 34.0-46.0 [facility] Comment on above: Performed By: #### 1 4271986, 0376626, 9037909, 55564572, 5850121 ####[address] [address] Hemoglobin (Bld) [Mass/Vol] 11.9 g/dL Low 12.0-16.0 [facility] Comment on above: Performed By: #### 1 4433632, 5384860, 6174876, 59197062, 4912261 ####[address] [place] [address] MCH (RBC) [Entitic mass] 33.4 pg Normal 27.0-34.0 [facility] Comment on above: Performed By: #### 1 5775999, 6441807, 2851098, 77398751, 2181198 ####[address] [place] [address] MCHC (RBC) [Mass/Vol] 32.9 g/dL Normal 31.4-36.0 [facility] Comment on above: Performed By: #### 1 2029567, 9187090, 2481971, 96879855, 8730323 ####[address] [address] MCV (RBC) [Entitic vol] 101.5 fL High 80.0-100.0 F [facility] Comment on above: Performed By: #### 1 1107517, 2119214, 3131815, 75661004, 4937197 ####[facility] [address] [place] [address] Platelet mean volume (Bld) [Entitic vol] 7.3 fL Normal 6.4-10.8 [facility] Comment on above: Performed By: #### 1 2116054, 9887519, 1830355, 92677420, 2992585 ####[facility] [address] [place] [address] Platelets (Bld) [#/Vol] 205.0 E9/L Normal 150. 0-500. 0 [facility] Comment on above: Performed By: #### 1 5920298, 9526658, 0076653, 88169721, 0751113 ####[facility] [address] [place] [address] RBC (Bld) [#/Vol] 3.6 E12/L Low 4.3-5.9 [facility] Comment on above: Performed By: #### 1 6795219, 4042042, 7174491, 05949187, 9599751 ####[facility] [address] [place] [address] WBC corrected for nucl RBC Auto (Bld) [#/Vol] 4.2 E9/L Normal 4.0-11.0 [facility] Comment on above: Performed By: #### 1 5575033, 0700183, 0128608, 60012584, 4397035 ####[address] [place] [address] CHEMISTRYOrdered By: SYSTEM SYSTEM on 07-09-2022 Albumin [...] 49 mL/min/1.73 m2 Low >=59mL/min /1.73 m2 [facility] Chem S GFR/1.73 sq M.predicted among non-blacks MDRD (S/P/Bld) [Vol rate/Area] 40 mL/min/1.73 m2 Low >=59mL/min /1.73 m2 [facility] Chem S Globulin (S) [Mass/Vol] 3.4 g/dL Normal 1.4 - 4.0 gm/dL [facility] Glucose [Mass/Vol] 119 mg/dL Normal 55 [...] Urea nitrogen/Creatinine [Mass ratio] 18 mg/mg Normal - [facility] Remisol CMPon 07-09-2022 Albumin [Mass/Vol] 3.6 g/dL Normal 3.3-5.0 [facility] Comment on above: Performed By: #### 1 7545941, 3392746, 5950539, 93098795, 5962976 ####[facility] [address] [place] [address] Albumin/Globulin (S) [Mass conc ratio] 1.1 Normal 1.1-2.2 [facility] Comment on above: Performed By: #### 1 0811698, 8243794, 3771141, 51711825, 0739085 ####[facility] [address] [place] [address] ALP [Catalytic activity/Vol] 87 Int._Unit/L Normal 21-98 [facility] Comment on above: Performed By: #### 1 5062089, 3365383, 2519702, 70143339, 7861700 ####[facility] [address] [place] [address] ALT No additional P-5'-P [Catalytic activity/Vol] 18 Int._Unit/L Normal 6-46 [facility] Comment on above: Performed By: #### 1 5349784, 0863858, 8629304, 19842294, 6469519 ####[facility] [address] [place] [address] Anion gap [Moles/Vol] 11 mmol/L Normal 6-16 [facility] Comment on above: Performed By: #### 1 4050780, 6993536, 9625015, 39045202, 0434628 ####[facility] [address] [place] [address] AST [Catalytic activity/Vol] 18 Int._Unit/L Normal 5-43 [facility] Comment on above: Performed By: #### 1 1184853, 6461389, 6719839, 43135027, 4458142 ####[facility] [address] [place] [address] Bilirubin [Mass/Vol] 1.0 mg/dL Normal 0.0-1.1 [facility] Comment on above: Performed By: #### 1 0826298, 1798752, 1967444, 15029679, 1243090 ####[facility] [address] [place] [address] Calcium [Mass/Vol] 8.7 mg/dL Low 8.9-11.1 [facility] Comment on above: Performed By: #### 1 8002530, 5188971, 8172272, 97460505, 5465391 ####[facility] [address] [place] [address] Chloride [Moles/Vol] 108 mmol/L Normal 101-111 [facility] Comment on above: Performed By: #### 1 9265981, 8186501, 6486602, 39294849, 3081441 ####[facility] [address] [place] [address] CO2 [Moles/Vol] 23 mmol/L Normal 21-31 [facility] Comment on above: Performed By: #### 1 3644738, 1862513, 6500853, 55007465, 7474272 ####[facility] [address] [place] [address] Creatinine [Mass/Vol] 1.3 mg/dL Normal 0.5-1.3 [facility] Comment on above: Performed By: #### 1 7274716, 6767102, 8480661, 01497921, 0200251 ####[facility] [address] [place] [address] Globulin (S) [Mass/Vol] 3.4 g/dL Normal 1.4-4.0 [facility] Comment on above: Performed By: #### 1 0560843, 5268994, 6943036, 89097336, 1234075 ####[facility] [address] [place] [address] Glucose [Mass/Vol] 119 mg/dL Normal 55-199 [facility] Comment on above: Result Comment: If t his glucose result represents a fasting glucose, interpretation should refer to the following reference range: 55-99 mg/dL Performed By: #### 1 9817300, 2128461, 3815954, 60550058, 9652249 ####[facility] [address] [place] [address] Potassium [Moles/Vol] 4.1 mmol/L Normal 3.5-5.3 [facility] Comment on above: Performed By: #### 1 1742088, 8048615, 8382379, 27147282, 7341944 ####[facility] [address] [place] [address] Protein [Mass/Vol] 7.0 g/dL Normal 6.0-7.8 [facility] Comment on above: Performed By: #### 1 1705011, 4150077, 0624947, 61476943, 1463310 ####[facility] [address] [place] [address] Sodium [Moles/Vol] 138 mmol/L Normal 135-145 [facility] Comment on above: Performed By: #### 1 6689406, 8141747, 6191154, 77340493, 2162623 ####[facility] [address] [place] [address] Urea nitrogen [Mass/Vol] 24 mg/dL High 5-21 [facility] Comment on above: Performed By: #### 1 1524141, 0031876, 2734342, 89578976, 0703693 ####[facility] [address] [place] [address] Urea nitrogen/Creatinine [Mass ratio] 18 No Units Normal 10-20 [facility] Comment on above: Performed By: #### 1 4655756, 6714732, 5465364, 35812112, 5675621 ####[facility] [address] [place] [address] Consent for Treatmenton 06-21 Consent for Treatment [id number]:12 7 Normal [facility] HEMATOLOGYOrdered By: SYSTEM SYSTEM on [...] 32.9 g/dL Normal 31.4 - 36.0 gm/dL [facility] MCV (RBC) [Entitic vol] 101.5 fL High 80.0 - 100.0 fL [facility] Platelet mean volume (Bld) [Entitic vol] 7.3 fL Normal 6.4 - 10.8 fL [facility] Platelets (Bld) [#/Vol] 205.0 E9/L Normal 150. 0 - 500.0 E9/L [facility] RBC (Bld) [#/Vol] 3.6 E12/L Low 4.3 - 5.9 E12/L [facility] WBC corrected for nucl RBC Auto (Bld) [#/Vol] 4.2 E9/L Normal 4.0 - 11.0 E9/L [facility]eAutoSS eGFRon 07-09-2022 GFR/1.73 sq M.predicted among blacks MDRD (S/P/Bld) [Vol rate/Area] 49 mL/min/1.73 m2 Low >=59 [facility] Comment on above: Order Comment: Order added by Discern Expert. Result Comment: eGFR is race adjusted. AA=. Performed By: #### 1 4722264, 1845524, 9070917, 68462453, 6074126 ####[facility] [address] [place] [address] GFR/1.73 sq M.predicted among non-blacks MDRD (S/P/Bld) [Vol rate/Area] 40 mL/min/1.73 m2 Low >=59 [facility] Comment on above: Order Comment: Order added by Discern Expert. Result Comment: [employer] aubrey kidney disease could be indicated at eGFR's of less than 60 mL/min/1.73m2. Kidney failure is indicated at less than 15 mL/min/1.73m2. Performed By: #### 1 5591987, 0045712, 9225397, 56177173, 3980654 ####[facility] [address] [place] [address] ONC - Otheron 06-28-2022 ONC - Other [id number]:1 27 Normal [facility] CHEMISTRYOrdered By: SYSTEM SYSTEM on 06-05-2022 Albumin [...] [facility]eAutoSS Reference Laboratory Testing Ordered By: [employer] DomainUser on 06-05-2022 Cancer Ag 27-29 Qn 17.2 unit/mL Invalid Interpretation Code 0.0-38.6un it/mL [facility] SendOutsSS Comment on above: Result Comment: [facility]aur Immunochemiluminometric Methodology (ICMA) Values obtained with different assay methods or kits cannot be used interchangeably. Results cannot be interpreted as absolute evidence of the presence or absence of malignant disease. Performed at: [address] [id number] PhD [place] Avelar CHEMISTRYOrdered By: SYSTEM SYSTEM on 05-07-2022 Albumin [...] 49 mL/min/1.73 m2 Low >=59mL/min /1.73 m2 [facility] Chem S GFR/1.73 sq M.predicted among non-blacks MDRD (S/P/Bld) [Vol rate/Area] 40 mL/min/1.73 m2 Low >=59mL/min /1.73 m2 [facility] Chem S Globulin (S) [Mass/Vol] 3.2 g/dL [...] m2 [facility] Chem S Globulin (S) [Mass/Vol] 2.9 g/dL [...] - 7.5 E9/L [facility] HemeAutoSS HEMATOLOGYOrdered By: Fausto Lyle on 04-05-2022 Erythrocyte distribution width (RBC) [Ratio] 14.1 % Normal 10.9 - 14.2 % [facility] Hematocrit (Bld) [Volume fraction] 41.6 % Normal 34.0 - 46.0 % [facility] Hemoglobin (Bld) [Mass/Vol] 13.8 g/dL Normal 12.0 - 16.0 gm/dL [facility] MCH (RBC) [Entitic mass] 30.9 pg Normal 27.0 - 34.0 pg [facility] MCHC (RBC) [Mass/Vol] 33.1 g/dL Normal 31.4 - 36.0 gm/dL [facility] MCV (RBC) [Entitic vol] 93.2 fL Normal 80.0 - 100.0 fL [facility] Platelet mean volume (Bld) [Entitic vol] 7.5 fL Normal 6.4 - 10.8 fL [facility] Platelets (Bld) [#/Vol] 173.0 E9/L Normal 150. 0 - 500.0 E9/L [facility] RBC (Bld) [#/Vol] 4.5 E12/L Normal [...] 32 mL/min/1.73 m2 Low >=59mL/min /1.73 m2 [facility] Chem S Globulin (S) [Mass/Vol] 3.5 g/dL [...] 11. 1 mg/dL [facility] Chloride [Moles/Vol] 108 mmol/L Normal 101 - 1 11 mmol/L [facility] CO2 [Moles/Vol] 23 mmol/L Normal 21 - 31 mmol/L [facility] Creatinine [Mass/Vol] 1.5 mg/dL High 0.5 - 1.3 mg/dL [facility] GFR/1.73 sq M.predicted among blacks MDRD (S/P/Bld) [Vol rate/Area] 41 mL/min/1.73 m2 Low >=59mL/min /1.73 m2 [facility] Chem S GFR/1.73 sq M.predicted among non-blacks MDRD (S/P/Bld) [Vol rate/Area] 34 mL/min/1.73 m2 Low >=59mL/min /1.73 m2 [facility] Chem S Globulin (S) [Mass/Vol] 3.2 g/dL [...] Normal 4.0 - 11.0 E9/L [facility] Clinic Note - [facility] Onc [facility] - Heme Onc Scheduling [...] 28-Aug-2021 16:01 by Isa Wong (SEC) Normal [facility] Clinic Note - Heme Onc-New Evaristo king 08-28-2021 Clinic Note - Heme Onc-New Visit Patient Visit Information: Visit Type: New Visit Cancer History: Breast AJCC Edition: 8th (AJCC), Diagnosis Date: August 2021, Stage(no match), pM1 G2 History of Present Illness: ID Statement: null is a () day old null Interval History: BREAST CANCER DIAGNOSIS metastatic ER+/DC+/HER2- breast cancer ([id number]) CONSULTING ONCOLOGIST Dr David Caldera CURRENT THERAPY anastrozole/ribociclib x 3 weeks HPI Patient is a pleasant 71 y/o woman here for a 2nd opinion. She presented on 06/29/21 with a 4.2cm mass in the right breast which she had for >1 year. Biopsy revealed ER/DC >95%/HER2- breast cancer. Also has known h/p [...] corresponding to (more content not included)... Normal [facility] Clinic Note - Intakeon 08-28 Clinic Note [...] (kg/m2)39 kg/M2 BSA (m2)2.08 M2 Nursing Verification [id number] Nursing Verification Height in cm159 centimeter(s) SpO2 (%)98 % SpO2 Patient Onroom air Pain Screening: Patient States Painno (0) Bargeman for intimate exam offered to patient: Patient [...] you are livingno Depression: Past 2 wks: Hemet down, depressed or hopelessno Past 2 wks: [place] little interest/pleasure doing thingsno Any Thoughts of [...] 13:21) Authored: Patient Visit Information, Vital Signs, Bargeman, Allergies, Outpatient Medication Profile, Notification, Travel History, Falls, Spiritual/Procedural, Adv Dir, Violence, Depression, Substance, Nutrition/Learning Lisette Valle (RN) (Signed 28-Aug-2021 15:47) Authored: Vital Signs, Notification Co-Signer: Patient Visit Information, Vital Signs, Bargeman, Allergies, Outpatient Medication Profile, Notification, Travel History, Falls, Spiritual/Procedural, Adv Dir, Violence, Depression, Substance, Nutrition/Learning Last Updated: 28-Aug-2021 15:47 by Lisette Valle (RN) Normal [facility] Narrative Note - Outpatient- Community Health Workeron 08-25-2021 Narrative Note - Outpatient-Community Health Worker Narrative Note: [facility] Best way to contact patient#[id number] Veteranno Has patient been seen by a [...] spelled wrong and that it should list [place] not [place]. Electronic Signatures: Leroy Gallegos (COOR) (Signed 25-Aug-2021 11:50) Authored: CHW Last Updated: 25-Aug-2021 11:50 by Leroy Gallegos (COOR) Normal [facility] CHEMISTRYOrdered By: SYSTEM SYSTEM on 08-21-2021 Albumin [...] 10 - 20 [facility] Remisol HEMATOLOGYOrdered By: [employer] SYSTEM on 08-21-2021 Basophils/100 WBC (Bld) 1.1 [...] 33.5 g/dL Normal 31.4 - 36.0 gm/dL [facility] MCV (RBC) [Entitic vol] 88.9 fL Normal 80.0 - 100.0 fL [facility]eAutoSS Platelet mean volume (Bld) [Entitic vol] 7.9 fL Normal 6.4 - 10.8 fL [facility]eAutoSS Platelets (Bld) [#/Vol] 185.0 E9/L Normal 150. 0 - 500.0 E9/L [facility] RBC (Bld) [#/Vol] 4.6 E12/L Normal 4.3 - 5.9 E12/L [facility] WBC corrected for nucl RBC Auto (Bld) [#/Vol] 7.6 E9/L Normal 4.0 - 11.0 E9/L [facility]eAuto[facility] Nurse Navigator - Breast-Sec ond Opinionon [...] explained role within the multidisciplinary team at [facility]; reviewed upcoming appointment with Dr. Seay, [...] 16-Aug-2021 11:34 by Aliya Dobson (DELGADO) Normal [facility] CHEMISTRYOrdered By: SYSTEM SYSTEM on 08-07-2021 Albumin [...] 10 - 20 [facility] Remisol HEMATOLOGYOrdered By: [employer] SYSTEM on 08-07-2021 Basophils/100 WBC (Bld) 1.4 [...] Time Vital Sign Value Performing Clinician Facility 06-12-2023 10:55-0500 Body temperature 98.06 [degF] [facility] 06-12-2023 10:55-0500 Diastolic blood pressure 66 mm[Hg] [facility] 06-12-2023 10:55-0500 Heart rate 68 /min [facility] 06-12-2023 10:55-0500 Mean blood pressure 79 mm[Hg] [facility] 06-12-2023 10:55-0500 Respiratory rate 16 /min [facility] 06-12-2023 10:55-0500 SaO2% (BldA) [Mass fraction] 97 % [facility] 06-12-2023 10:55-0500 Systolic blood pressure 106 mm[Hg] [facility] 05-31-2023 08:36-0500 Body height 160.02 cm MD Mary Rodriguez Work Phone: [facility] 05-31-2023 08:36-0500 Body weight 86.18 kg MD Mary Rodriguez Work Phone: [facility] 05-01-2023 14:03-0500 Heart rate 70 /min [facility] 05-01-2023 14:03-0500 SaO2% (BldA) [Mass fraction] 98 % [facility] 05-01-2023 14:02-0500 Body temperature 98.24 [degF] [facility] 05-01-2023 14:02-0500 Diastolic blood pressure 81 mm[Hg] [facility] 05-01-2023 14:02-0500 Mean blood pressure 93 mm[Hg] [facility] 05-01-2023 14:02-0500 Systolic blood pressure 118 mm[Hg] [facility] 01-30-2023 14:25-0400 Heart rate 76 /min [facility] 01-30-2023 14:25-0400 SaO2% (BldA) [Mass fraction] 96 % [facility] 01-30-2023 14:25-0400 Diastolic blood pressure 61 mm[Hg] [facility] 01-30-2023 14:25-0400 Mean blood pressure 79 mm[Hg] [facility] 01-30-2023 14:25-0400 Systolic blood pressure 115 mm[Hg] [facility] 01-30-2023 14:25-0400 Body temperature 97.7 [degF] [facility] 01-30-2023 14:00-0400 Blood Pressure Location [facility] 01-30-2023 14:00-0400 Respiratory rate 16 /min Senthil Caldera [facility] 12-23-2022 10:15-0400 Hourly Rounding Mbanefo OJUKW[facility] 12-23-2022 10:15-0400 Promise to Return Mbanefo OJUKWU [facility] 12-23-2022 09:00-0400 Hourly Rounding Mbanefo [facility]JUKWU [facility] 12-23-2022 09:00-0400 Promise to Return Mbanefo OJUKWU [facility] 12-23-2022 08:46-0400 Diastolic blood pressure 64 mm[Hg] Mbanefo [facility]UK[facility] 12-23-2022 08:46-0400 Systolic blood pressure 96 mm[Hg] Mbanefo [facility]JUKW[facility] 12-23-2022 08:40-0400 gluc 111 mg/dL Mbanefo [facility]JUK[facility] 12-23-2022 08:37-0400 Heart rate 56 /min Mbanefo [facility]UK[facility] 12-23-2022 08:37-0400 SaO2% (BldA) [Mass fraction] 96 % [facility]efo [facility] 12-23-2022 08:37-0400 Respiratory rate 18 /min Mbanefo [facility] 12-23-2022 08:37-0400 Body temperature 97.88 [degF] [facility] [facility] 12[facility]-2022 08:37-0400 Diastolic blood pressure 64 mm[Hg] Mbanefo OJUKWU [facility] 12-23-2022 08:37-0400 Mean blood pressure 74 mm[Hg] Mbanefo OJUKWU [facility] 12-23-2022 08:37-0400 Systolic blood pressure 96 mm[Hg] Mbanefo OJUKWU [facility] 12-23-2022 08:00-0400 Hourly Rounding Mbanefo OJUKWU [facility] 12-23-2022 08:00-0400 Promise to Return Mbanefo OJUKWU [facility] 12-22-2022 23:44-0400 Heart rate 58 /min Mbanefo OJUKWU [facility] 12-22-2022 23:44-0400 SaO2% (BldA) [Mass fraction] 97 % Mbanefo OJUKWU [facility] 12-22-2022 23:44-0400 Body temperature 98.06 [degF] Mbanefo OJUKWU [facility] 12-22-2022 23:44-0400 Diastolic blood pressure 60 mm[Hg] Mbanefo OJUKWU [facility] 12-22-2022 23:44-0400 Mean blood pressure 72 mm[Hg] Mbanefo OJUKWU [facility] 12-22-2022 23:44-0400 Systolic blood pressure 96 mm[Hg] Mbanefo OJUKWU [facility] 12-22-2022 19:33-0400 Heart rate 62 /min Mbanefo OJUKWU [facility] 12-22-2022 19:33-0400 SaO2% (BldA) [Mass fraction] 97 % Mbanefo OJUKWU [facility] 12-22-2022 19:33-0400 Body temperature 98.24 [degF] Mbanefo OJUKWU [facility] 12-22-2022 19:32-0400 Mean blood pressure 69 mm[Hg] Mbanefo OJUKWU [facility] 12-22-2022 16:03-0400 gluc 129 mg/dL Mbanefo OJUKWU [facility] 12-22-2022 15:46-0400 Respiratory rate 16 /min Mbanefo OJUKWU [facility] 12-22-2022 11:52-0400 gluc 158 mg/dL Mbanefo OJUKWU [facility] 12-22-2022 11:13-0400 Respiratory rate 13 /min Mbanefo OJUKWU [facility] 12-22-2022 06:56-0400 Blood Pressure Location Mbanefo OJUKWU [facility] 12-22-2022 06:56-0400 Body temperature 98.42 [degF] Mbanefo OJUKWU [facility] 12-22-2022 06:56-0400 Mean blood pressure 85 mm[Hg] Mbanefo OJUKWU [facility] 12-21-2022 23:00-0400 Blood Pressure Location Mbanefo OJUKWU [facility] 12-21-2022 23:00-0400 Body temperature 98.96 [degF] Mbanefo OJUKWU [facility] 12-21-2022 23:00-0400 Mean blood pressure 84 mm[Hg] Mbanefo OJUKWU [facility] 12-21-2022 05:35-0400 Mean blood pressure 79 mm[Hg] Mbanefo OJUKWU [facility] 12-20-2022 21:08-0400 Body temperature 97.7 [degF] Mbanefo OJUKWU [facility] 12-20-2022 21:08-0400 Heart rate 65 /min Mbanefo OJUKWU [facility] 12-20-2022 15:06-0400 Heart rate 75 /min Mbanefo OJUKWU [facility] 12-20-2022 00:45-0400 Diastolic blood pressure 72 mm[Hg] David Ran [facility] 12-20-2022 00:45-0400 Heart rate 76 /min David Ran [facility] 12-20-2022 00:45-0400 Mean blood pressure 89 mm[Hg] David Ran [facility] 12-20-2022 00:45-0400 Respiratory rate 14 /min David Ran [facility] 12-20-2022 00:45-0400 SaO2% (BldA) [Mass fraction] 100 % David Ran [facility] 12-20-2022 00:45-0400 Systolic blood pressure 124 mm[Hg] David Ran [facility] 12-20-2022 00:15-0400 Diastolic blood pressure 70 mm[Hg] David Ran [facility] 12-20-2022 00:15-0400 Heart rate 71 /min David Ran [facility] 12-20-2022 00:15-0400 Mean blood pressure 92 mm[Hg] David Ran [facility] 12-20-2022 00:15-0400 Respiratory rate 14 /min David Ran [facility] 12-20-2022 00:15-0400 SaO2% (BldA) [Mass fraction] 92 % David Ran [facility] 12-20-2022 00:15-0400 Systolic blood pressure 137 mm[Hg] David Ran [facility] 12-19-2022 23:45-0400 Diastolic blood pressure 61 mm[Hg] David Ran [facility] 12-19-2022 23:45-0400 Heart rate 80 /min David Ran [facility] 12-19-2022 23:45-0400 Mean blood pressure 85 mm[Hg] David Ran [facility] 12-19-2022 23:45-0400 Respiratory rate 16 /min David Ran [facility] 12-19-2022 23:45-0400 SaO2% (BldA) [Mass fraction] 97 % David Ran [facility] 12-19-2022 23:45-0400 Systolic blood pressure 132 mm[Hg] David Ran [facility] 12-19-2022 20:41-0400 Body temperature 98.24 [degF] David Ran [facility] 12-19-2022 20:41-0400 Heart rate 82 /min David Ran [facility] 12-19-2022 20:41-0400 Respiratory rate 20 /min David Tong [facility] 12-17-2022 13:20-0400 Diastolic blood pressure 77 mm[Hg] Jeffery Castelane [facility] 12-17-2022 13:20-0400 Heart rate 60 /min Jeffery Castelane [facility] 12-17-2022 13:20-0400 Hourly Rounding Jeffery Castelane [facility] 12-17-2022 13:20-0400 Mean blood pressure 95 mm[Hg] Jeffery Castelane [facility] 12-17-2022 13:20-0400 Promise to Return Jeffery Castelane [facility] 12-17-2022 13:20-0400 SaO2% (BldA) [Mass fraction] 97 % Jeffery Castelane [facility] 12-17-2022 13:20-0400 Systolic blood pressure 132 mm[Hg] Jeffery Castelane [facility] 12-17-2022 12:20-0400 Diastolic blood pressure 71 mm[Hg] Jeffery Castelane [facility] 12-17-2022 12:20-0400 Heart rate 71 /min Jeffery Castelane [facility] 12-17-2022 12:20-0400 Hourly Rounding Jeffery Murphy [facility] 12-17-2022 12:20-0400 Mean blood pressure 86 mm[Hg] Jeffery Katherine [facility] 12-17-2022 12:20-0400 Promise to Return Jeffery Castelane [facility] 12-17-2022 12:20-0400 SaO2% (BldA) [Mass fraction] 96 % Jeffery Katherine [facility] 12-17-2022 12:20-0400 Systolic blood pressure 117 mm[Hg] Jeffery Katherine [facility] 12-17-2022 11:21-0400 Hourly Rounding Jeffery Castelane [facility] 12-17-2022 11:21-0400 Promise to Return Jeffery Castelane [facility] 12-17-2022 11:20-0400 Diastolic blood pressure 84 mm[Hg] Jeffery Katherine [facility] 12-17-2022 11:20-0400 Heart rate 68 /min Jeffery Castelane [facility] 12-17-2022 11:20-0400 Mean blood pressure 99 mm[Hg] Jeffery Katherine [facility] 12-17-2022 11:20-0400 Respiratory rate 18 /min Jeffery Katherine [facility] 12-17-2022 11:20-0400 SaO2% (BldA) [Mass fraction] 96 % Jeffery Katherine [facility] 12-17-2022 11:20-0400 Systolic blood pressure 130 mm[Hg] Jeffery Katherine [facility] 12-17-2022 10:22-0400 Body temperature 97.88 [degF] Jeffery Katherine [facility] 12-17-2022 10:22-0400 Heart rate 69 /min Jeffery Katherine [facility] 12-17-2022 10:22-0400 Respiratory rate 18 /min Jeffery Murphy [facility] 11-04-2022 14:00-0400 Hourly Rounding Ronobir JESSICA [facility] 11-04-2022 13:40-0400 Hourly Rounding Ronobir JESSICA [facility] 11-04-2022 13:40-0400 Promise to Return Ronobir JESSICA [facility] 11-04-2022 13:00-0400 Hourly Rounding Ronobir JESSICA [facility] 11-04-2022 12:26-0400 Promise to Return Ronobir JESSICA [facility] 11-04-2022 11:48-0400 Heart rate 78 /min Ronobir JESSICA [facility] 11-04-2022 11:48-0400 SaO2% (BldA) [Mass fraction] 95 % Ronobir JESSICA [facility] 11-04-2022 11:48-0400 Diastolic blood pressure 83 mm[Hg] Ronobir JESSICA [facility] 11-04-2022 11:48-0400 Mean blood pressure 96 mm[Hg] Ronobir JESSICA [facility] 11-04-2022 11:48-0400 Systolic blood pressure 122 mm[Hg] Ronobir JESSICA [facility] 11-04-2022 11:48-0400 Body temperature 98.24 [degF] Ronobir JESSICA [facility] 11-04-2022 11:17-0400 Promise to Return Ronobir JESSICA [facility] 11-04-2022 08:24-0400 Diastolic blood pressure 78 mm[Hg] Ronobir JESSICA [facility] 11-04-2022 08:24-0400 Systolic blood pressure 127 mm[Hg] Ronobir JESSICA [facility] 11-04-2022 07:32-0400 Heart rate 77 /min Ronobir JESSICA [facility] 11-04-2022 07:32-0400 SaO2% (BldA) [Mass fraction] 94 % Ronobir JESSICA [facility] 11-04-2022 07:31-0400 Body temperature 97.7 [degF] Ronobir JESSICA [facility] 11-04-2022 07:31-0400 Diastolic blood pressure 78 mm[Hg] Ronobir JESSICA [facility] 11-04-2022 07:31-0400 Mean blood pressure 94 mm[Hg] Ronobir JESSICA [facility] 11-04-2022 07:31-0400 Systolic blood pressure 127 mm[Hg] Ronobir JESSICA [facility] 11-03-2022 23:16-0400 Heart rate 79 /min Ronobir JESSICA [facility] 11-03-2022 23:16-0400 SaO2% (BldA) [Mass fraction] 97 % Ronobir JESSICA [facility] 11-03-2022 23:16-0400 Mean blood pressure 108 mm[Hg] Ronobir JESSICA [facility] 11-03-2022 23:15-0400 Body temperature 97.7 [degF] Ronobir JESSICA [facility] 11-03-2022 20:00-0400 Blood Pressure Location Ronobir JESSICA [facility] 11-03-2022 20:00-0400 Respiratory rate 21 /min Ronobir JESSICA [facility] 11-03-2022 09:00-0400 Mean blood pressure 87 mm[Hg] Ronobir JESSICA [facility] 11-03-2022 09:00-0400 Respiratory rate 16 /min Ronobir JESSICA [facility] 11-02-2022 21:15-0400 Mean blood pressure 95 mm[Hg] Ronobir JESSICA [facility] 11-02-2022 11:51-0400 Respiratory rate 18 /min Ronobir JESSICA [facility] 11-02-2022 03:50-0400 Heart rate 68 /min Ronobir JESSICA [facility] 11-02-2022 03:18-0400 Respiratory rate 10 /min Ronobir JESSICA [facility] 11-02-2022 02:38-0400 Nursing Progress Note Reason Other: pt complains of back pain. repositioned in bed. medicated for pain. Ronobir JESSICA [facility] 11-02-2022 02:38-0400 Respiratory rate 7 /min Ronobir JESSICA [facility] 11-02-2022 02:37-0400 Heart rate 73 /min Ronobir JESSICA [facility] 11-01-2022 23:15-0400 Nursing Progress Note Reason Other: trauma made medical at this time. mini cath done and urine sent to lab. pt repositioned in bed Ronobir JESSICA [facility] 11-01-2022 22:53-0400 Body temperature 96.62 [degF] Ronobir JESSICA [facility] 11-01-2022 22:53-0400 Heart rate 74 /min Ronobir JESSICA [facility] 11-01-2022 22:03-0400 Heart rate 69 /min Ronobir JESSICA [facility] 08-01-2022 13:00-0400 Blood Pressure Location [facility] 08-01-2022 13:00-0400 Body temperature 98.6 [degF] [facility] 08-01-2022 13:00-0400 Diastolic blood pressure 84 mm[Hg] [facility] 08-01-2022 13:00-0400 Heart rate 76 /min [facility] 08-01-2022 13:00-0400 Mean blood pressure 101 mm[Hg] [facility] 08-01-2022 13:00-0400 Respiratory rate 16 /min [facility] 08-01-2022 13:00-0400 SaO2% (BldA) [Mass fraction] 97 % [facility] 08-01-2022 13:00-0400 Systolic blood pressure 136 mm[Hg] [facility] 06-06-2022 12:59-0500 Heart rate 61 /min [facility] 06-06-2022 12:59-0500 SaO2% (BldA) [Mass fraction] 98 % [facility] 06-06-2022 12:59-0500 Respiratory rate 16 /min [facility] 06-06-2022 12:59-0500 Body temperature 97.7 [degF] [facility] 06-06-2022 12:58-0500 Diastolic blood pressure 106 mm[Hg] Senthilleopoldo Caldera [facility] 06-06-2022 12:58-0500 Mean blood pressure 116 mm[Hg] [facility]-06-[facility] 12:58-0500 Systolic blood pressure 137 mm[Hg] [facility] 03-28-2022 14:10-0500 Heart rate 66 /min [facility] 03-28-2022 14:10-0500 SaO2% (BldA) [Mass fraction] 96 % [facility] 03-28-2022 14:09-0500 Body temperature 98.42 [degF] [facility] 03-28-2022 14:09-0500 Diastolic blood pressure 77 mm[Hg] [facility] 03-28-2022 14:09-0500 Mean blood pressure 93 mm[Hg] [facility] 03-28-2022 14:09-0500 Systolic blood pressure 127 mm[Hg] [facility] 03-28-2022 14:09-0500 Blood Pressure Location [facility] 03-28-2022 14:09-0500 Body temperature 98.42 [degF] [facility] 03-28-2022 14:09-0500 Mean blood pressure 94 mm[Hg] [facility] 03-28-2022 14:09-0500 Respiratory rate 18 /min [facility] 01-18-2022 14:13-0400 Blood Pressure Location [facility] 01-18-2022 14:13-0400 Body temperature 98.06 [degF] [facility] 01-18-2022 14:13-0400 BP/Pulse Patient Position Senthilleopoldo Caldera [facility] 01-18-2022 14:13-0400 Diastolic blood pressure 82 mm[Hg] Senthil Caldera [facility] 01-18-2022 14:13-0400 Heart rate 59 /min Senthilleopoldo Caldera [facility] 01-18-2022 14:13-0400 Mean blood pressure 98 mm[Hg] Senthil Caldera [facility] 01-18-2022 14:13-0400 Respiratory rate 16 /min Senthil Caldera [facility] 01-18-2022 14:13-0400 SaO2% (BldA) [Mass fraction] 98 % Senthilleopoldo Caldera [facility] 01-18-2022 14:13-0400 Systolic blood pressure 131 mm[Hg] Senthilleopoldo Caldera [facility] 12-21-2021 13:34-0400 Blood Pressure Location Nohemi Garcia [facility] 12-21-2021 13:34-0400 Body temperature 98.6 [degF] Nohemi Garcia [facility] 12-21-2021 13:34-0400 BP/Pulse Patient Position Nohemi Garcia [facility] 12-21-2021 13:34-0400 Diastolic blood pressure 85 mm[Hg] Nohemi Garcia [facility] 12-21-2021 13:34-0400 Heart rate 67 /min Nohemi Garcia [facility] 12-21-2021 13:34-0400 Mean blood pressure 101 mm[Hg] Nohemi Garcia [facility] 12-21-2021 13:34-0400 Respiratory rate 18 /min Nohemi Garcia [facility] 12-21-2021 13:34-0400 SaO2% (BldA) [Mass fraction] 93 % Nohemi Garcia [facility] 12-21-2021 13:34-0400 Systolic blood pressure 132 mm[Hg] Nohemi Garcia [facility] 12-21-2021 13:34-0400 Mean blood pressure 101 mm[Hg] Nohemi Garcia [facility] 11-30-2021 13:16-0400 Body temperature 98.24 [degF] [facility] 11-30-2021 13:16-0400 Diastolic blood pressure 79 mm[Hg] [facility] 11-30-2021 13:16-0400 Heart rate 78 /min [facility] 11-30-2021 13:16-0400 Mean blood pressure 98 mm[Hg] [facility] 11-30-2021 13:16-0400 SaO2% (BldA) [Mass fraction] 96 % [facility] 11-30-2021 13:16-0400 Systolic blood pressure 136 mm[Hg] [facility] 11-30-2021 13:00-0400 Blood Pressure Location [facility] 11-30-2021 13:00-0400 Respiratory rate 16 /min [facility] 11-02-2021 11:53-0400 Blood Pressure Location Nohemi Garcia [facility] 11-02-2021 11:53-0400 Body temperature 98.06 [degF] Nohemi Garcia [facility] 11-02-2021 11:53-0400 BP/Pulse Patient Position Nohemi Garcia [facility] 11-02-2021 11:53-0400 Diastolic blood pressure 64 mm[Hg] Nohemi Garcia [facility] 11-02-2021 11:53-0400 Heart rate 64 /min Nohemi Garcia [facility] 11-02-2021 11:53-0400 Mean blood pressure 89 mm[Hg] Nohemi Garcia [facility] 11-02-2021 11:53-0400 Respiratory rate 17 /min Nohemi Garcia [facility] 11-02-2021 11:53-0400 SaO2% (BldA) [Mass fraction] 97 % Nohemi Garcia [facility] 11-02-2021 11:53-0400 Systolic blood pressure 140 mm[Hg] Nohemi Garcia [facility] 10-05-2021 13:46-0400 Body temperature 98.42 [degF] [facility] 10-05-2021 13:46-0400 Diastolic blood pressure 83 mm[Hg] [facility] 10-05-2021 13:46-0400 Heart rate 69 /min [facility] 10-05-2021 13:46-0400 Mean blood pressure 104 mm[Hg] [facility] 10-05-2021 13:46-0400 SaO2% (BldA) [Mass fraction] 96 % [facility] 10-05-2021 13:46-0400 Systolic blood pressure 146 mm[Hg] [facility] 09-07-2021 12:48-0400 Body temperature 98.6 [degF] [facility] 09-07-2021 12:48-0400 Diastolic blood pressure 70 mm[Hg] [facility] 09-07-2021 12:48-0400 Heart rate 72 /min [facility] 09-07-2021 12:48-0400 Mean blood pressure 83 mm[Hg] Senthil Caldera [facility] 09-07-2021 12:48-0400 SaO2% (BldA) [Mass fraction] 96 % Senthilleopoldo Caldera [facility] 09-07-2021 12:48-0400 Systolic blood pressure 109 mm[Hg] Senthil Caldera [facility] 09-07-2021 12:00-0400 Heart rate 69 /min Senthilleopoldo Caldera [facility] 09-07-2021 12:00-0400 SaO2% (BldA) [Mass fraction] 98 % Senthilleopoldo Caldera [facility] 09-03-2021 00:20-0400 Body temperature 98.78 [degF] Carlos Martin [facility] 09-03-2021 00:20-0400 Diastolic blood pressure 80 mm[Hg] Carlos Martin [facility] 09-03-2021 00:20-0400 Heart rate 86 /min Carlos Martin [facility] 09-03-2021 00:20-0400 Respiratory rate 16 /min Carlos Martin [facility] 09-03-2021 00:20-0400 SaO2% (BldA) [Mass fraction] 95 % Carlos Martin [facility] 09-03-2021 00:20-0400 Systolic blood pressure 146 mm[Hg] Carlos Martin [facility] 08-10-2021 12:35-0400 Body temperature 98.06 [degF] Rickey Askew [facility] 08-10-2021 12:35-0400 Diastolic blood pressure 72 mm[Hg] Rickey Askew [facility] 08-10-2021 12:35-0400 Heart rate 77 /min Rickey Askew [facility] 08-10-2021 12:35-0400 Mean blood pressure 84 mm[Hg] Rickey Askew [facility] 08-10-2021 12:35-0400 Respiratory rate 12 /min Rickey Askew [facility] 08-10-2021 12:35-0400 SaO2% (BldA) [Mass fraction] 97 % Rickey Askew [facility] 08-10-2021 12:35-0400 Systolic blood pressure 108 mm[Hg] Rickey Askew [facility] 07-26-2021 10:27-0400 Body temperature 97.88 [degF] [facility] 07-26-2021 10:27-0400 Diastolic blood pressure 84 mm[Hg] [facility] 07-26-2021 10:27-0400 Heart rate 59 /min [facility] 07-26-2021 10:27-0400 Mean blood pressure 112 mm[Hg] [facility] 07-26-2021 10:27-0400 SaO2% (BldA) [Mass fraction] 97 % [facility] 07-26-2021 10:27-0400 Systolic blood pressure 169 mm[Hg] [facility] 07-26-2021 10:00-0400 Respiratory rate 16 /min [facility] 07-18-2021 12:18-0400 Body temperature 97.7 [degF] [facility] 07-18-2021 12:18-0400 Diastolic blood pressure 83 mm[Hg] [facility] 07-18-2021 12:18-0400 Heart rate 60 /min [facility] 07-18-2021 12:18-0400 Mean blood pressure 106 mm[Hg] Senthil Caldera [facility] 07-18-2021 12:18-0400 SaO2% (BldA) [Mass fraction] 98 % Senthil Caldera [facility] 07-18-2021 12:18-0400 Systolic blood pressure 152 mm[Hg] Senthil Caldera [facility] 07-18-2021 12:00-0400 Respiratory rate 16 /min Senthil Caldera [facility] 07-11-2021 10:20-0400 Body temperature 97.7 [degF] Gavino TABOR [facility] General Surgery Petty Encounters Encounter Date Encounter Type Care Provider Facility Start: 06-12-2023 End: 06-13-2023 ambulatory Senthilleopoldo Interianoflaquito [place] [place]: 06-12-2023 End: 06-12-2023 Patient encounter procedure Senthil Caldera [facility] Start: 06-05-2023 Clinisync Result Encounter Mary Rodriguez MD Work Phone: [facility] External Department Unsolicited Start: 06-05-2023 Clinisync Result Encounter Mary Rodriguez MD Work Phone: [facility] External Department Unsolicited Start: 05-31-2023 External Result Encounter Senthil Caldera DO Work Phone: [facility] External Department Unsolicited Start: 05-31-2023 External Result Encounter Senthil Caldera DO Work Phone: [facility] External Department Unsolicited Start: 05-31-2023 End: 05-31-2023 ambulatory Mary Rodriguez Facility:[facility] Start: 05-31-2023 End: 05-31-2023 ambulatory MD Mary Rodriguez Work Phone: [facility] Work Phone: Start: 05-31-2023 End: 05-31-2023 Patient encounter procedure MD Mary Rodriguez Work Phone: [facility] Work Phone: Start: 05-24-2023 Clinisync Result Encounter Mary Rodriguez MD Work Phone: [facility] External Department Unsolicited Start: 05-24-2023 Clinisync Result Encounter Mary Rodriguez MD Work Phone: [facility] External Department Unsolicited Start: 05-01-2023 End: 05-02-2023 ambulatory eSnthil Caldera [place] [place]: 05-01-2023 End: 05-01-2023 Patient encounter procedure Senthil Caldera [facility] Start: 01-30-2023 End: 01-31-2023 ambulatory Senthil Caldera [place] Start: 01-30-2023 End: 01-30-2023 Patient encounter procedure Senthil Caldera [facility] Start: 12-20-2022 End: 12-23-2022 Evaluation and management of inpatient Zaheer Odell Sloan [place] Start: 12-20-2022 End: 12-23-2022 Evaluation and management of inpatient Nic TomlinSHARONKWU [facility] Start: 12-19-2022 End: 12-20-2022 Emergency department patient visit David Tong [place] Start: 12-19-2022 End: 12-20-2022 Emergency department patient visit David Tong [facility] Start: 12-17-2022 End: 12-17-2022 Emergency department patient visit Jeffery Murphy [place] Start: 12-17-2022 End: 12-17-2022 Emergency department patient visit Jeffery Murphy [facility] Start: 12-14-2022 End: 12-15-2022 ambulatory Sammy QUEZADA Facility:CD:[id number] Start: 12-14-2022 End: 12-14-2022 Manual pelvic examination [facility] Start: 12-05-2022 ambulatory Lorie Wright y:CD:[id number] Start: 11-16-2022 End: 12-16-2022 ambulatory Senthil Caldera Facility:CD:[id number] Start: 11-16-2022 End: 12-16-2022 In-Between Visit [facility] Start: 11-06-2022 End: 11-07-2022 ambulatory Sammy QUEZADA Facility:CD:[id number] Start: 11-06-2022 End: 11-06-2022 Off-Site [facility]my [facility] Start: 11-04-2022 End: 12-15-2022 ambulatory Sammy QUEZADA [place] Start: 11-01-2022 End: 11-04-2022 ambulatory Wyatt Murray [place] Start: 11-01-2022 End: 11-04-2022 Observation Mariia LOPEZ [facility] Start: 09-27-2022 End: 09-28-2022 ambulatory Nohemi Garcia [place] Start: 09-25-2022 End: 09-26-2022 ambulatory Senthil Caldera [place] Start: 09-25-2022 End: 09-25-2022 Patient encounter procedure Senthil Caldera [facility] Start: 09-08-2022 End: 09-08-2022 Emergency department patient visit Pedro Nava [place] Start: 09-08-2022 End: 09-09-2022 ambulatory Senthil Caldera [place] Start: 08-01-2022 End: 08-02-2022 ambulatory Senthil Caldera [place] Start: 08-01-2022 End: 08-01-2022 Patient encounter procedure Senthil Caldera [facility] Start: 07-30-2022 End: 07-31-2022 ambulatory Senthil Caldera [place] Start: 07-30-2022 End: 07-30-2022 Patient encounter procedure Senthil Caldera [facility] Start: 07-25-2022 End: 10-24-2022 ambulatory Senthil Caldera [place] Start: 07-25-2022 End: 10-23-2022 Recurring Senthil Caldera [facility] Start: 07-09-2022 End: 07-10-2022 ambulatory Senthil Caldera [place] [place]: 07-09-2022 End: 07-09-2022 Patient encounter procedure Senthil Caldera [facility] Start: 06-06-2022 End: 06-06-2022 Patient encounter procedure Senthil Caldera [facility] Start: 03-28-2022 End: 03-28-2022 Patient encounter procedure Senthil Caldera [facility] Start: 03-17-2022 End: 06-17-2022 Recurring Nohemi Garcia [facility] Start: 01-18-2022 End: 01-18-2022 Patient encounter procedure Senthil Caldera [facility] Start: 01-02-2022 End: 09-03-2022 Recurring Senthil Caldera [facility] Start: 12-26-2021 End: 12-26-2021 Patient encounter procedure Senthil Caldera [facility] Start: 12-21-2021 End: 12-21-2021 Patient encounter procedure Nohemi Garcia [facility] Start: 11-30-2021 End: 11-30-2021 Patient encounter procedure Senthil Caldera [facility] Start: 11-27-2021 End: 11-27-2021 Patient encounter procedure Senthil Caldera [facility] Start: 11-25-2021 End: 02-23-2022 Recurring Nohemi Garcia [facility] Start: 11-02-2021 End: 11-02-2021 Patient encounter procedure Nohemi Garcia [facility] Start: 11-01-2021 End: 11-01-2021 Patient encounter procedure Senthil Caldera [facility] Start: 10-05-2021 End: 10-05-2021 Patient encounter procedure Senthil Caldera [facility] Start: 10-02-2021 End: 10-02-2021 Patient encounter procedure Senthil Caldera [facility] Start: 09-07-2021 End: 09-07-2021 Patient encounter procedure Senthil Caldera [facility] Start: 09-03-2021 End: 09-03-2021 Emergency department patient visit Carlos Salazar [facility] Start: 08-21-2021 End: 08-21-2021 Patient encounter procedure Senthil Caldera [facility] Start: 08-21-2021 End: 08-21-2021 Patient encounter procedure Senthil Caldera [facility] Start: 08-10-2021 End: 08-10-2021 Patient encounter procedure Rickey Askew [facility] Start: 08-07-2021 End: 08-07-2021 Patient encounter procedure Senthil Caldera [facility] Start: 07-26-2021 End: 07-26-2021 Patient encounter procedure Senthil Caldera [facility] Start: 07-26-2021 End: 07-26-2021 Patient encounter procedure Senthil Caldera [facility] Start: 07-25-2021 End: 08-18-2021 Pre-admission assessment Gavino TABOR [facility] Start: 07-18-2021 End: 07-18-2021 Patient encounter procedure Senthil Caldera [facility] Start: 07-11-2021 End: 07-11-2021 Patient encounter procedure Gavino TABOR [facility] [place] Procedures Date Procedure Procedure Detail Performing Clinician Start: 06-05-2023 ALL CBC WITH AUTO DIFF Mary Rodriguez MD Work Phone: Start: 05-31-2023 Positron emission tomography with computed tomography MD Mary Rodriguez Work Phone: Start: 05-31-2023 GLUCOSE POCT GLUCOMETERS Senthil J Verenice LUDWIG Work Phone: Start: 05-24-2023 ALL CBC WITH AUTO DIFF Mary Rodriguez MD Work Phone: Start: 07-04-2021 Core needle biopsy o f breast Gavino TABOR Comment on above: right Start: 04-10-2020 Colonoscopy Mary Rodriguez MD Work Phone: Tonsillectomy and adenoidectomy Gavino TABOR Plan of Treatment Date Care Activity Detail Author Start: 04-10-2030 Screening for malign ant neoplasm of colon [facility] Start: 01-24-2023 Hemoglobin A1c measurement Diabetes: Hemoglobin A1C [facility] Start: 12-21-2022 Influenza vaccination Influenza Vacc ine (#1) [facility] Start: 09-13-2022 Medicare Annual Well ness (AWV) Medicare Annual Wellness (AWV) [facility] Start: 07-09-1959 Glaucoma screening Diabetes: R etinopathy Screening [facility] Start: 1950 Screening for malign ant neoplasm of colon [facility] Immunizations Immunization Date Immunization Notes Care Provider Fa cility 02-13-2021 Influenza, High-dose Seasonal, Quadrivalent, Preservative Free Mary Rodriguez MD Work Phone: [facility] 02-13-2021 influenza virus vaccine, unspecified formulation Mary Rodriguez MD Work Phone: [facility] 01-20-2021 influenza virus vaccine, unspecified formulation Gavino TABOR [facility] [place] 05-22-2019 influenza, high dose seasonal, preservative-free Mary Rodriguez MD Work Phone: [facility] 03-19-2018 influenza, high dose seasonal, preservative-free Mary Rodriguez MD Work Phone: [facility] 04-12-2017 influenza, high dose seasonal, preservative-free Mary Rodriguez MD Work Phone: [facility] 04-12-2017 pneumococcal conjuga te vaccine, 13 valent Mary Rodriguez MD Work Phone: [facility] Payers Date Payer Category Payer Self-pay 2023 Medicaid [id number] 2022 Medicare [id number] 2022 Unknown [employer] [id number] 2022-Present [address] [place] [address] [id number] 2021 Private Health Insurance [id number] 1950 Unknown [id number] 2.16.840.1.906770.3.579.2.7 27 1949 Unknown [id number] 2.16.840.1.776989.3.579.2.7 27 1949 Unknown [id number] 2.16.840.1.874637.3.579.2.7 27 1949 Unknown [id number] 2.16.840.1.288278.3.579.2.7 27 1949 Unknown [id number] 2.16.840.1.260528.3.579.2.7 27 1949 Unknown [id number] 2.16.840.1.899653.3.579.2.7 27 1949 Unknown [id number] 2.16.840.1.915992.3.579.2.7 27 1949 Unknown [id number] 2.16.840.1.398142.3.579.2.7 27 1949 Unknown [id number] 2.16.840.1.673340.3.579.2.7 27 1949 Unknown [id number] 2.16.840.1.143899.3.579.2.7 27 1949 Unknown [id number] 2.16.840.1.917502.3.579.2.7 27 1949 Unknown [id number] 2.16.840.1.043076.3.579.2.7 27 1949 Unknown [id number] 2.16.840.1.655347.3.579.2.7 27 1949 Unknown [id number] 2.16.840.1.020581.3.579.2.7 27 1949 Unknown [id number] 2.16.840.1.044528.3.579.2.7 27 1949 Unknown [id number] 2.16.840.1.928233.3.579.2.7 27 1949 Unknown [id number] 2.16.840.1.587907.3.579.2.7 27 1949 Unknown [id number] 2.16.840.1.398355.3.579.2.7 27 1949 Unknown [id number] 2.16.840.1.586321.3.579.2.7 27 1949 Unknown [id number] 2.16.840.1.604785.3.579.2.7 27 Medicare Medicare [id number] Unknown [id number] 2.16.840.1.633981.3.579.2.5 31 Social History Date Type Detail Facility Start: 07-04-2021 End: 09-19-2022 Tobacco smoking status Never smoked tobacco (finding) [facility] Tobacco smoking status Never [facility] Start: 10-24-2022 Sex Assigned At Female F [facility] Start: 09-19-2022 Tobacco use and exposure Smokeless tobacco non-user [facility] Start: 10-24-2022 History of Social function [facility] Start: 1950 Sex Assigned At Not on file [facility] Start: 1950 Sex Assigned At Female F [facility] Functional Status Date Assessment Result Facility 12-20-[address] [facility] 12-20-[address] [facility] 12-19-2022 Functional Status N/A [facility] 12-17-2022 Functional Status N/A [facility] 11-02-2022 Functional Status N/A [facility] 11-01-[address] [facility] Clinical Notes 07-11-2021 to 06-12-2023 Note Date & Type Note Facility 06-12-2023 Hospital Discharg e instructions Patient Education 06/12/2023 11:39:22 High-Protein and High-Calorie Diet High-Protein and High-Calorie Diet Eating high-protein and high-calorie foods can help you to gain weight, heal after an injury, and recover after an illness or surgery. The specific amount of daily protein and calories you need depends on: Your body weight. The reason this diet is recommended for you. Generally, a high-protein, high-calorie diet involves: Eating 250 500 extra calories each day. Making sure that you get enough of your daily calories from protein. Ask your health care provider how many of your calories should come from protein. Talk with a health care provider or a dietitian about how much protein and how many calories you need each day. Follow the diet as directed by your health care provider. What are tips for following this plan? Reading food labels Check the nutrition facts label for calories, grams of fat and protein. Items with more than 4 grams of protein are high-protein foods. Preparing meals Add whole milk, fqbd-lkf-lveh, or heavy cream to cereal, pudding, soup, or hot cocoa. Add whole milk to instant breakfast drinks. Add peanut butter to oatmeal or smoothies. Add powdered milk to baked goods, smoothies, or milkshakes. Add powdered milk, cream, or butter to mashed potatoes. Add cheese to cooked vegetables. Make whole-milk yogurt parfaits. Top them with granola, fruit, or nuts. Add cottage cheese to fruit. Add avocado, cheese, or both to sandwiches or salads. Add avocado to smoothies. Add meat, poultry, or seafood to rice, pasta, casseroles, salads, and soups. Use mayonnaise when making egg salad, chicken salad, or tuna salad. Use peanut butter as a dip for fruits and vegetables or as a topping for pretzels, celery, or crackers. Add beans to casseroles, dips, and spreads. Add pureed beans to sauces and soups. Replace calorie-free drinks with calorie-containing drinks, such as milk and fruit juice. Replace water with milk or heavy cream when making foods such as oatmeal, pudding, or cocoa. Add oil or butter to cooked vegetables and grains. Add cream cheese to sandwiches or as a topping on crackers and bread. Make cream-based pastas and soups. General information Ask your health care provider if you should take a nutritional supplement. Try to eat six small meals each day instead of three large meals. A general goal is to eat every 2 to 3 hours. Eat a balanced diet. In each meal, include one food that is high in protein and one food with fat in it. Keep nutritious snacks available, such as nuts, trail mixes, dried fruit, and yogurt. If you have kidney disease or diabetes, talk with your health care provider about how much protein is safe for you. Too much protein may put extra stress on your kidneys. Drink your calories. Choose high-calorie drinks and have them after your meals. Consider setting a timer to remind you to eat. You will want to eat even if you do not feel very hungry. What high-protein foods should I eat? Vegetables Soybeans. Peas. Grains Quinoa. Bulgur wheat. Buckwheat. Meats and other proteins Beef, pork, and poultry. Fish and seafood. Eggs. Tofu. Textured vegetable protein (TVP). Peanut butter. Nuts and seeds. Dried beans. Protein powders. Hummus. Dairy Whole milk. Whole-milk yogurt. Powdered milk. Cheese. Cottage Cheese. Eggnog. Beverages High-protein supplement drinks. Soy milk. Other foods Protein bars. The items listed above may not be a complete list of foods and beverages you can eat and drink. Contact a dietitian for more information. What high-calorie foods should I eat? Fruits Dried fruit. Fruit leather. Canned fruit in syrup. Fruit juice. Avocado. Vegetables Vegetables cooked in oil or butter. Fried potatoes. Grains Pasta. Quick breads. Muffins. Pancakes. Ityds-vh-acv cereal. Meats and other proteins Peanut butter. Nuts and seeds. Dairy Heavy cream. Whipped cream. Cream cheese. Sour cream. Ice cream. Custard. Pudding. Whole milk dairy products. Beverages Meal-replacement beverages. Nutrition shakes. Fruit juice. Seasonings and condiments Salad dressing. Mayonnaise. Ramesh sauce. Fruit preserves or jelly. Honey. Syrup. Sweets and desserts Cake. Cookies. Pie. Pastries. Candy bars. Chocolate. Fats and oils Butter or margarine. Oil. Gravy. Other foods Meal-replacement bars. The items listed above may not be a complete list of foods and beverages you can eat and drink. Contact a dietitian for more information. Summary A high-protein, high-calorie diet can help you gain weight or heal faster after an injury, illness, or surgery. To increase your protein and calories, add ingredients such as whole milk, peanut butter, cheese, beans, meat, or seafood to meal items. To get enough extra calories each day, include high-calorie foods and beverages at each meal. Adding a high-calorie drink or shake can be an easy way to help you get enough calories each day. Talk with your healthcare provider or dietitian about the best options for you. This information is not intended to replace advice given to you by your health care provider. Make sure you discuss any questions you have with your health care provider. Document Revised: 03/12/2021 Document Reviewed: 03/12/2021 [employer] Patient Education 2022 [employer]. 06/12/2023 11:25:57 Breast Cancer, Female Breast Cancer, Female Breast cancer is a malignant growth of tissue (tumor) in the breast. Unlike noncancerous (benign) tumors, malignant tumors are cancerous and can spread to other parts of the body. The two most common types of breast cancer start in the milk ducts (ductal carcinoma) or in the lobules where milk is made in the breast (lobular carcinoma). Breast cancer is one of the most common types of cancer in women. What are the causes? The exact cause of female breast cancer is unknown. What increases the risk? The following factors may make you more likely to develop this condition: Being older than 55 years of age. Having a family history of breast cancer. Starting menopause after age 55. Starting your menstrual periods before age 12. Having never been or having your first child after age 30. Having never breastfed. A personal history of: ?Breast cancer. ?Dense breast tissue. ?Radiation exposure. ?Having the BRCA1 and BRCA2 genes. ?Having certain types of benign breast conditions. ?Exposure to the drug SIDDHARTHA, which was given to women from the 1940s to the . Other risks include: Using control pills. Using hormone therapy after menopause. Drinking more than one alcoholic drink a day. Obesity. What are the signs or symptoms? Symptoms of this condition include: A painless lump or thickening in your breast. Changes in the size or shape of your breast. Breast skin changes, such as puckering or dimpling. Nipple abnormalities, such as scaling, crustiness, redness, or pulling in (retraction). Nipple discharge that is bloody or clear. How is this diagnosed? This condition may be diagnosed by: Taking your medical history and doing a physical exam. During the exam, your health care provider will feel the tissue around your breast and under your arms. Taking a sample of nipple discharge. The sample will be examined under a microscope. Performing imaging tests, such as breast X-rays (mammogram), ultrasound, or MRI. Taking a tissue sample (biopsy) from the breast. The sample will be examined under a microscope to look for cancer cells. Taking a sample from the lymph nodes near the affected breast (sentinel node biopsy). Your cancer will be staged to determine its severity and extent. Staging is a careful attempt to find out the size of the tumor, whether the cancer has spread, and if so, to what parts of the body. Staging also includes testing your tumor for certain receptors, such as estrogen, progesterone, and human epidermal growth factor receptor 2 (HER2). This will help your cancer care team decide on a treatment that will work best for you. You may need to have more tests to determine the stage of your cancer. Stages include the following: Stage 0 The tumor has not spread to other breast tissue. Stage 1 (I) The cancer is only found in the breast or may be in the lymph nodes. The tumor may be up to inch (2 cm) wide. Stage 2 (II) The cancer has spread to nearby lymph nodes. The tumor may be up to 2 inches (5 cm) wide. Stage 3 (III) The cancer has spread to more distant lymph nodes. The tumor may be larger than 2 inches (5 cm) wide. Stage 4 (IV) The cancer has spread to other parts of the body, such as the bones, brain, liver, or lungs. How is this treated? Treatment for this condition depends on the type and stage of the breast cancer. It may be treated with: Surgery. This may involve breast-conserving surgery (lumpectomy or partial mastectomy) in which only the part of the breast containing the cancer is removed. Some normal tissue surrounding this area may also be removed. In some cases, surgery may be done to remove the entire breast (mastectomy) and nipple. Lymph nodes may also be removed. Radiation therapy, which uses high-energy rays to kill cancer cells. Chemotherapy, which is the use of medicines to kill cancer cells. Hormone therapy, which involves taking medicine to adjust the hormone levels in your body. You may take medicine to decrease your estrogen levels. This can help stop cancer cells from growing. Targeted therapy, in which medicines are used to block the growth and spread of cancer cells. These medicines target a specific part of the cancer cell and usually cause fewer side effects than chemotherapy. Targeted therapy may be used alone or in combination with chemotherapy. Immunotherapy, which is the use of medicines to boost the immune system to recognize and destroy cancer cells more effectively. A combination of surgery, radiation, chemotherapy, or hormone therapy may be needed to treat breast cancer. Follow these instructions at home: Take qlir-akn-umhwimc and prescription medicines only as told by your health care provider. Eat a healthy diet. A healthy diet includes lots of fruits and vegetables, low-fat dairy products, lean meats, and fiber. ?Make sure half your plate is filled with fruits or vegetables. ?Choose high-fiber foods such as whole-grain breads and cereals. Consider joining a support group. This may help you cope with the stress of having breast cancer. Talk to your health care team about exercise and physical activity. The right exercise program can: ?Help prevent or reduce symptoms such as fatigue or depression. ?Improve overall health and survival rates. Keep all follow-up visits. This is important. Where to find more information [place] [employer]: www.cancer.org National Cancer Gerlaw: www.cancer.gov Contact a health care provider if: You have a sudden increase in pain. You have any symptoms or changes that concern you. You lose weight without trying. You notice a new lump in either breast or under your arm. You develop swelling in either arm or hand. You have a fever. You notice new fatigue or weakness. Get help right away if: You have chest pain or trouble breathing. These symptoms may be an emergency. Get help right away. Call 911. Do not wait to see if the symptoms will go away. Do not drive yourself to the hospital. Summary Breast cancer is a malignant growth of tissue (tumor) in the breast. Your cancer will be staged to determine its severity and extent. Treatment for this condition depends on the type and stage of the breast cancer. This information is not intended to replace advice given to you by your health care provider. Make sure you discuss any questions you have with your health care provider. Document Revised: 02/26/2022 Document Reviewed: 02/26/2022 [employer] Patient Education 2022 [employer]. 06/12/2023 11:25:02 Fall Prevention in the Home, Adult, Rkox-xr-Fhmv Fall Prevention in the Home, Adult Falls can cause injuries and can happen to people of all ages. There are many things you can do to make your home safe and to help prevent falls. Ask for help when making these changes. What actions can I take to prevent falls? General Instructions Use good lighting in all rooms. Replace any light bulbs that burn out. Turn on the lights in dark areas. Use night-lights. Keep items that you use often in jwtp-nq-bwyxo places. Lower the shelves around your home if needed. Set up your furniture so you have a clear path. Avoid moving your furniture around. Do not have throw rugs or other things on the floor that can make you trip. Avoid walking on wet floors. If any of your floors are uneven, fix them. Add color or contrast paint or tape to clearly sintia and help you see: ?Grab bars or handrails. ?First and last steps of staircases. ?Where the edge of each step is. If you use a stepladder: ?Make sure that it is fully opened. Do not climb a closed stepladder. ?Make sure the sides of the stepladder are locked in place. ?Ask someone to hold the stepladder while you use it. Know where your pets are when moving through your home. What can I do in the bathroom? Keep the floor dry. Clean up any water on the floor right away. Remove soap buildup in the tub or shower. Use nonskid mats or decals on the floor of the tub or shower. Attach bath mats securely with double-sided, nonslip rug tape. If you need to sit down in the shower, use a plastic, nonslip stool. Install grab bars by the toilet and in the tub and shower. Do not use towel bars as grab bars. What can I do in the bedroom? Make sure that you have a light by your bed that is easy to reach. Do not use any sheets or blankets for your bed that hang to the floor. Have a firm chair with side arms that you can use for support when you get dressed. What can I do in the kitchen? Clean up any spills right away. If you need to reach something above you, use a step stool with a grab bar. Keep electrical cords out of the way. Do not use floor sinhala or wax that makes floors slippery. What can I do with my stairs? Do not leave any items on the stairs. Make sure that you have a light switch at the top and the bottom of the stairs. Make sure that there are handrails on both sides of the stairs. Fix handrails that are broken or loose. Install nonslip stair treads on all your stairs. Avoid having throw rugs at the top or bottom of the stairs. Choose a carpet that does not hide the edge of the steps on the stairs. Check carpeting to make sure that it is firmly attached to the stairs. Fix carpet that is loose or worn. What can I do on the outside of my home? Use bright outdoor lighting. Fix the edges of walkways and driveways and fix any cracks. Remove anything that might make you trip as you walk through a door, such as a raised step or threshold. Trim any bushes or trees on paths to your home. Check to see if handrails are loose or broken and that both sides of all steps have handrails. Install guardrails along the edges of any raised decks and porches. Clear paths of anything that can make you trip, such as tools or rocks. Have leaves, snow, or ice cleared regularly. Use sand or salt on paths during winter. Clean up any spills in your garage right away. This includes grease or oil spills. What other actions can I take? Wear shoes that: ?Have a low heel. Do not wear high heels. ?Have rubber bottoms. ?Feel good on your feet and fit well. ?Are closed at the toe. Do not wear open-toe sandals. Use tools that help you move around if needed. These include: ?Canes. ?Walkers. ?Scooters. ?Crutches. Review your medicines with your doctor. Some medicines can make you feel dizzy. This can increase your chance of falling. Ask your doctor what else you can do to help prevent falls. Where to find more information Centers for Disease Control and PreventionELIO: www.cdc.gov National Gerlaw on Aging: www.derrick.nih.gov Contact a doctor if: You are afraid of falling at home. You feel weak, drowsy, or dizzy at home. You fall at home. Summary There are many simple things that you can do to make your home safe and to help prevent falls. Ways to make your home safe include removing things that can make you trip and installing grab bars in the bathroom. Ask for help when making these changes in your home. This information is not intended to replace advice given to you by your health care provider. Make sure you discuss any questions you have with your health care provider. Document Revised: 01/08/2022 Document Reviewed: 11/09/2020 [employer] Patient Education 2022 [employer]. Follow Up Care 05/01/2023 15:02:18 With:Senthil Caldera DO, ONC Address: [facility] [place] [address]- [phone] Fax Business (1) When: Unknown Comments:cbc, cmp, iron studies, b12, foalte, epo tw2041 monthly. f/u in 3 months. change arimidex to exemestane 25mg daily. pet/ct prior to f/u.make sure images from pet from may and august are both in our system for review at f/u in august. [facility] 01-30-2023 Hospital Discharg e instructions Follow Up Care 01/30/2023 15:16:04 With:Senthil Verenice Address: [facility] [place] [address]- [phone] Fax Business (1) When: Unknown Comments:f/u in 6 wks. pet/ct in [facility] soon. f/u after. cbc, cmp, iron studies, b12, foalte, epo, [id number] prior to f/u. [facility] 12-23-2022 Evaluation + Plan note Extrac yajaira from: Title:Discharge Note Author:Zaheer Sloan DO Date:12/23/22 Discharge To, Anticipated II - Prison Unit Transported by, Anticipated - Wheelchair van [...] When Contact Information Azar HANKS, Rickey Lynn, [facility] [address] [place] [address]- Additional Instructions: Antibiotic Medicine, Adult, Vadh-jr-Nudl Extracted from: Title:APSO Note Author:Nathalia LUDWIGZaheer e:12/22/22 1. UTI (urinary tract infect ion) [...] Ordered: Initial Hospital Care/Day Moderate 55 Minutes 90857 Sbsq Hospital Care/Day Straight Fwd 25 Minutes 44000 2. 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 Age-related cognitive decline (R41.81: Age-related cognitive [...] Panel 10/25/22 * Comprehensive Metabolic Panel 11/22/22 [facility]09-03-2023 [facility]The [facility] CenterComment on above:Result Comment: Electronically Signed By: Zaheer Sloan DO\.br\Date and Time Signed: 12/23/22 09:49 [id number] Hospital Discharge instructions Patient Education 12/23/2022 09:48:15 Antibiotic Medicine, Adult, Uang-qu-Watb Antibiotic Medicine, Adult Antibiotic medicines treat infections [...] medicine. Follow these instructions at home: Take iqdi-jcb-rtsntjo and prescription medicines as told by your [...] provider. Document Revised: 01/26/2020 Document Reviewed: 01/26/2020 [employer] Patient Education 2022 [employer] Follow Up Care 12/20/2022 15:04:36 With:Azar HANKS, Rickey Lynn [facility] Address: [address] [place] [address]- When: Unknown [facility]08-31-2023 [facility]:Result Comment: Electronically Signed By: Zaheer Sloan DO.br\Date and Time Signed: 12/20/22 19:18 [id number] Evaluation + Plan note Extracted from: Title:ED Note Author:David Tong MD Date: 1. Generalized weakness (R53 .1: Weakness) 2. Frequent falls (R29.6: Repeated falls) 3. Anemia (D64.9: Anemia, unspecified) 4. Dehydration (E86.0: Dehydration) 5. Urinary tract infection (N39.0: Urinary tract infection, site not specified) Orders: cephalexin, 500 mg = 1 cap(s), Oral, QID, X 7 day(s), # 28 cap(s), Refills(s) 0, Pharmacy: [facility], 167.6, cm, 12/19/22 20:43:00 EDT, Height/Length [...] Panel 10/25/22 * Comprehensive Metabolic Panel 11/22/22 [facility]08-31-2023 Hospital Discharge instructions Patient Education 12/20/2022 00:37:19 Urinary Tract Infection, Adult, Zznf-mb-Kdzt Urinary Tract Infection, Adult A urinary tract [...] Follow these instructions at home: Medicines Take jttg-arx-wpnuwhc and prescription medicines only as told by [...] provider. Document Revised: 11/18/2020 Document Reviewed: 11/18/2020 [employer] Patient Education 2022 [employer]. 12/20/2022 00:37:19 Anemia Anemia Anemia is [...] spleen. Follow these instructions at home: Take mgwc-sfd-tcwmuho and prescription medicines only as told by [...] provider. Document Revised: 02/20/2022 Document Reviewed: 03/15/2020 [employer] Patient Education 2022 [employer]. 12/20/2022 00:37:19 Dehydration, Adult, Juhf-gx-Vtcn Dehydration, Adult Dehydration is condition in which [...] of fat or sugar. General instructions Take auyw-fbe-mndpdsy and prescription medicines only as told by [...] start slowly drinking other clear fluids. Take ljpa-wie-smfwslw and prescription medicines only as told by your doctor. Get help right away if you have any symptoms of very bad dehydration. This information is not intended to replace advice given to you by your health care provider. Make sure you discuss any questions you have with your health care provider. Document Revised: 11/19/2019 Document Reviewed: 11/19/2019 [employer] Patient Education 2022 [employer]. Follow Up Care 12/19/2022 20:39:35 With:Rickey Askew Address: [place] [address] Business (1) When:12/21/2022 [facility]08-28-2023 Hospital Discharge instructions Patient Education 12/17/2022 [...] Follow these instructions at home: Medicines Take etro-rtz-vxjwdar and prescription medicines only as told by [...] as fried or sweet foods. ?Take an pjct-mdf-qmjqkxy or prescription medicine for constipation. If you [...] provider. Document Revised: 02/05/2022 Document Reviewed: 02/05/2022 [employer] Patient Education 2022 [employer] Follow Up Care 12/17/2022 10:20:15 With:JOSÉ ANTONIO VARGAS Address: [address] [place] [phone]- Business (1) When:12/20/2022 12:53:13 With:Gavino Erickson Address: [address] [place] [address]- Business (1) When:12/20/2022 12:52:03 With:Rickey Askew Address: [address] [place] [address]- Business (1) When:12/20/2022 12:51:59 [facility]08-28-2023 Evaluation + Plan noteExtracted from: Title:ED Note Author:Gui Scruggs PA-C te:12/17/22 Fall (W19.XXXA: Unspecified fall, initial encounter) Lumbar compression fracture (S32.000A: Wedge compression fracture of unspecified lumbar vertebra, initial encounter for closed fracture) Ordered: oxycodone, 5 mg = 1 tab(s), Oral, q6hr, X 3 day(s), # 15 tab(s), Refills(s) 0, Pharmacy: [facility], 168, cm, 12/17/22 10:29:00 EDT, Height/Length [...] Future Scheduled Tests Laboratory* CA 27 29 7/6/23 * CA 27 29 11/22/22 * CBC w/ Auto Diff 10/25/22 * CBC w/ Auto Diff 11/22/22 * Comprehensive Metabolic Panel 10/25/22 * Comprehensive Metabolic Panel 11/22/22 [facility]07-16-2023 NoteFisher Thomas B. Finan CenterComment on above:Result Comment: Electronically Signed By: Trevor HANKS, Wyatt\.br\Date and Time Signed: 11/04/22 12:37 [id number] Hospital Discharge instructions Patient Education 11/04/2022 12:28:31 [...] Consider working with a physical therapist or applications trainer who can develop an exercise plan to help you gain muscle strength. General instructions Take utmo-rns-ntemccw and prescription medicines only as told by [...] provider. Document Revised: 03/11/2022 Document Reviewed: 03/11/2022 [employer] Patient Education 2022 [employer]. Follow Up Care 11/01/2022 19:54:24 With:Hollis MERRILL Address: [address] Business (1) When: Unknown Comments:Urinary retnetion w/dooley With:Gavino Erickson Address: [address] Business (1) When: Unknown Comments:Call for followup appointment in 4 weeks for repeat pelvis xray With:Rickey Askew Address: [address] [place] [address]- Business (1) When: Unknown [facility]07-16-2023 Evaluation + Plan noteExtracted from: Title:Discharge Note Author:Trevor HANKS, Wyatt Lynn ate:11/04/22 Stable Discharge To, Anticipated II - Prison Unit Discharged to - custodial unit Discharge Diet(s): Regular (11/02/22 15:25:00) Prescriptions anastrozole 1 mg Tab, 1 mg= 1 tab(s), Oral, Daily, 11 refills Arimidex 1 mg Tab, 1 mg= 1 tab(s), Oral, Daily, 3 refills ergocalciferol 50,000 intl units Cap, 54026 International_Unit= 1 cap(s), Oral, q7day Kisqali (200 [...] bedtime) With When Contact Information Gavino Erickson [address] [place], [place] [address] Business (1) Additional Instructions: Call for followup appointment in 4 weeks for repeat pelvis xray Rickey Askew In [address] [place] [phone]- Business (1) Additional Instructions: Addendum by Trevor HANKS, [facility] ad on November 04, 2022 12:36:52 [...] deep vein thrombosis (DVT) prophylaxis (Z79.899: Other prison (current) drug therapy) SCD, enoxaparin Orders: acetaminophen, [...] Panel 10/25/22 * Comprehensive Metabolic Panel 11/22/22 [facility]07-14-2023 NotePT Evaluation done this date. Pt. with 12/13 on AM-PAC this date. She is very resistant to movement due to pain. She is unable to stand even with attempts of max A. Will benefit from SNF.[facility]07-14-2023 NoteFishUniversity of [facility] Center Midtown CampusComment on above: Result Comment: Electronically Signed By: Mariia LOPEZ DO\Date and Time Signed: 11/02/22 01:35 [id number] Hospital Discharge instructions Follow Up Care 09/27/2022 14:06:46 With:Senthil Caldera Address: [facility] [address] [place] [phone] Fax Business (1) When: Unknown Comments:f/u in 3 months. pet/ct prior to f/u. cont arimidex and kisquali. cbc, cmp and [id number] monthly. [facility]02-15-2023 Hospital Discharge instructions Follow Up Care 06/06/2022 13:40:28 With:Senthil Caldera Address: [address] [phone] Fax Business (1) When: Unknown Comments:cbc, cmp, [id number] in 4 weeks and prior to f/u in 8 weeks. 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 iron studies, b12, folate with next labs. [facility]12-07-2022 Hospital Discharge instructions Follow Up Care 03/28/2022 14:49:31 With:Senthil Caldera Address: [address] [phone] Fax Business (1) When: Unknown Comments:f/u in 2 months. pet/ct prior to f/ucbc, cmp, [id number], every 6 weeks. [facility]09-29-2022 Hospital Discharge instructions Follow Up Care 01/18/2022 14:52:57 With:Senthil Caldera Address: [address] [phone] Fax Business (1) When: Unknown Comments:raise kisquali to 400mg for 3wks on and 1 week off. f/u with me or anthony in 2 months. cbc, cmp, [id number] prior to f/ucbc, cmp monthly onthis medicaztion cont arimidex. [facility]09-01-2022 Hospital Discharge instructions Follow Up Care 12/21/2021 14:19:38 With:Senthil Caldera Address: [address] [place] [phone] Fax Business (1) When: Unknown Comments:continue Kisqali 200mg 3wks on, 1wk offcbc, cmp in 4wks and 8wksPET scan in Novfollow-up in 8wks with Dr. Hernandez after PET scan [facility]08-11-2022 Hospital Discharge instructions Follow Up Care 11/30/2021 13:55:25 With:Senthil Caldera Address: [place] [phone] Fax Business (1) When: Unknown Comments:re-start kisqali at 200mg daily x 3 weeks, then 1 week offcmp weekly x 4wksfollow-up with Dr. Hernandez in 4wkscbc, cmp at follow-up [facility]07-14-2022 Hospital Discharge instructions Follow Up Care 11/02/2021 12:27:30 With:Senthil Caldera Address: [address] [phone] Fax Business (1) When: Unknown Comments:cont arimidex. Hold kisquali for 3 wks, recheck cbc, cmp, prior to f/u. hold lasix. Send this note to Dr. Kofi sumner. [facility]06-16-2022 Hospital Discharge instructions Follow Up Care 10/05/2021 14:21:47 With:Senthil Caldera Address: [address] [phone] Fax Business (1) When: Unknown Comments:continue kisqalifollow-up in 1mocbc, cmp at follow-up [facility]05-19-2022 Hospital Discharge instructions Follow Up Care 09/07/2021 13:41:37 With:Senthil Caldera Address: [place] [phone] Fax Business (1) When: Unknown Comments:continue Kisqali follow-up in 1 mocbc, cmp, [id number] at follow-up [facility]05-15-2022 Evaluation + Plan noteExtracted from: Title:ED [...] Location:FT.ONCOLOGY Appointment Type:ONC Office Visit 15 (FT) [facility]05-15-2022 Hospital Discharge instructions Patient Education 09/03/2021 [...] instructions at home: Medicines Take and apply aaix-pcv-mzyhcvj and prescription medicines only as told by [...] what causes your hives. Take and apply uazt-mlv-gsdjukw and prescription medicines only as told by your health care provider. Keep all follow-up visits as told by your health care provider. This is important. This information is not intended to replace advice given to you by your health care provider. Make sure you discuss any questions you have with your health care provider. Document Released: 04/08/2006 Document Revised: 10/22/2018 Document Reviewed: 10/22/2018 [employer] Patient Education 2020 [employer]. Follow Up Care 09/03/2021 00:14:38 With:Rickey Askew Address: [address] [place] [phone]- Business (1) When:Within 3 Day(s) [facility]04-21-2022 Hospital Discharge instructions Follow Up Care 08/10/2021 13:38:09 With:Nohemi Garcia Address: [facility] [address] [place] [address] [place] [phone] Business (1) When: Unknown Comments:f/u 1 monthcont kisquali.cbc, cmp, [id number] at f/u. With:Senthil Caldera Address: [place] [address] [place] [phone] Fax Business (1) When: Unknown [facility]04-05-2022 Hospital Discharge instructions Follow Up Care 07/25/2021 15:46:11 With:Senthil Caldera Address: [place] [address] [place] [phone] Fax Business (1) When: Unknown Comments:f/u in 2 wks, cbc, cmp, [id number] at f/u. [facility]03-22-2022 Hospital Discharge instructions Follow Up Care 07/11/2021 14:05:16 With:Senthil Caldera Address: [place] [address] [place] [phone] Fax Business (1) When: Unknown Comments:echo and port sooni will call Dr. Tabor. f/u with me in 2 wks plan AC. Cbc, cmp, ceapet/ct prior to f/u. [facility] Future Appointments Appointment Date:07/18/2021 12:00:00 PM Scheduled Provider:Senthil Caldera DO [facility] Type:[facility]C Office Visit New 45 (FT) [facility] Evaluation + Plan note Future Appointments Appointment Date:08/08/2021 10:00:00 AM Scheduled Provider: Location:.ULTRASOUND Appointment Type:US Breast (FT) Appointment Date:08/09/2021 10:30:00 AM Scheduled Provider: Location:[facility] Appointment Type:Surgical PAT FT Appointment Date:08/10/2021 12:30:00 PM Scheduled Provider:Senthil Caldera DO Location:.ONCOLOGY Appointment Type:ONC Office Visit 15 (FT) Appointment Date:08/17/2021 08:00:00 AM Scheduled Provider: Location:[facility] Appointment Type:Surgery FT Appointment Date:08/22/2021 10:20:00 AM Scheduled Provider:Gavino TABOR MD [facility] Appointment Type: Post Op 15 Future Scheduled Tests Laboratory* CA 27 29 08/09/21 * CBC w/ Auto Diff 08/09/21 * CBC w/ Auto Diff 07/26/21 * CEA 07/26/21 * Comprehensive Metabolic Panel 08/09/21 * Comprehensive Metabolic Panel 07/26/21 Radiology* US Perc Biopsy Lymph Node 08/08/21 [facility] Future Appointments Appointment Date:08/10/2021 12:30:00 PM Scheduled Provider:Senthil Caldera DO Location:FT.ONCOLOGY Appointment Type:ONC Office Visit 15 (FT) Diagnostic Tests Pending * CA 27 29 08/07/21 Future Scheduled Tests Laboratory* CBC w/ Auto Diff 07/26/21 * CEA 07/26/21 * Comprehensive Metabolic Panel 07/26/21 [facility] Future Appointments Appointment Date:08/10/2021 12:30:00 PM Scheduled Provider:Senthil Caldera DO Location:FT.ONCOLOGY Appointment Type:ONC Office Visit 15 (FT) Future Scheduled Tests Laboratory* CBC w/ Auto Diff 07/26/21 * CEA 07/26/21 * Comprehensive Metabolic Panel 07/26/21 [facility] Future Appointments Appointment Date:09/07/2021 12:30:00 PM Scheduled Provider:Senthil Caldera DO Location:.ONCOLOGY Appointment Type:ONC Office Visit 15 (FT) Future Scheduled Tests Laboratory* CBC w/ Auto Diff 08/24/21 * CEA 08/24/21 * Comprehensive Metabolic Panel 08/24/21 [facility] Future Appointments Appointment Date:08/21/2021 02:00:00 PM Scheduled Provider: Location:FT.ONCOLOGY Appointment Type:ONC Patient Education - 1hr (FT) Appointment Date:09/07/2021 12:30:00 PM Scheduled Provider:Senthil Caldera DO Location:.ONCOLOGY Appointment Type:ONC Office Visit 15 (FT) Future Scheduled Tests Laboratory* CBC w/ Auto Diff 09/07/21 * CEA 09/07/21 * Comprehensive Metabolic Panel 09/07/21 [facility] Future Appointments Appointment Date:09/07/2021 12:30:00 PM Scheduled Provider:Senthil Caldera DO Location:FT.ONCOLOGY Appointment Type:ONC Office Visit 15 (FT) [facility] Future Appointments Appointment Date:10/05/2021 01:30:00 PM Scheduled Provider:Senthil Caldera DO Location:FT.ONCOLOGY Appointment Type:ONC Office Visit 15 (FT) Future Scheduled Tests Laboratory* CA 27 29 10/08/21 * CBC w/ Auto Diff 10/08/21 * Comprehensive Metabolic Panel 10/08/21 [facility] Future Appointments Appointment Date:10/05/2021 01:30:00 PM Scheduled Provider:Senthil Caldera DO Location:FT.ONCOLOGY Appointment Type:ONC Office Visit 15 (FT) Diagnostic Tests Pending * CA 27 29 10/02/21 [facility] Future Appointments Appointment Date:11/02/2021 01:45:00 PM Scheduled Provider:Senthil Caldera DO Location:FT.ONCOLOGY Appointment Type:ONC Office Visit 15 (FT) Future Scheduled Tests Laboratory* CA 27 29 11/02/21 * CBC w/ Auto Diff 11/02/21 * Comprehensive Metabolic Panel 11/02/21 [facility] Future Appointments Appointment Date:11/02/2021 11:15:00 AM Scheduled Provider:Nohemi Garland Location:FT.ONCOLOGY Appointment Type:ONC Office Visit 15 (FT) Diagnostic Tests Pending * CA 27 29 11/01/21 [facility] Future Appointments Appointment Date:11/30/2021 01:15:00 PM Scheduled Provider:Senthil Caldera DO Location:FT.ONCOLOGY Appointment Type:ONC Office Visit 15 (FT) Future Scheduled Tests Laboratory* CBC w/ Auto Diff 12/03/21 * Comprehensive Metabolic Panel 12/03/21 [facility] Future Appointments Appointment Date:11/30/2021 01:15:00 PM Scheduled Provider:Senthil Caldera DO Location:FT.ONCOLOGY Appointment Type:ONC Office Visit 15 (FT) [facility] Future Appointments Appointment Date:12/21/2021 01:15:00 PM Scheduled Provider:Senthil Caldera DO Location:.ONCOLOGY Appointment Type:ONC Office Visit 15 (FT) Future Scheduled Tests Laboratory* CBC w/ Auto Diff 12/21/21 * Comprehensive Metabolic Panel 12/21/21 [facility] Future Appointments Appointment Date:01/18/2022 02:15:00 PM Scheduled Provider:Senthil Caldera DO [facility] Type:ONC Office Visit 15 (FT) Future [...] Panel 01/18/22 * Comprehensive Metabolic Panel 01/25/22 [facility] Future [facility]ments Appointment [...] Panel 01/18/22 * Comprehensive Metabolic Panel 01/25/22 [facility] Future Appointments Appointment Date:03/28/2022 02:15:00 PM Scheduled Provider:Senthil Caldera DO Location:.ONCOLOGY Appointment Type:ONC Office Visit 15 (FT) Future Scheduled Tests Laboratory* CBC w/ Auto Diff 01/23/22 * CBC w/ Auto Diff 01/30/22 * CBC w/ Auto Diff 02/06/22 * CBC w/ Auto Diff 02/13/22 * Comprehensive Metabolic Panel 01/23/22 * Comprehensive Metabolic Panel 01/30/22 * Comprehensive Metabolic Panel 02/06/22 * Comprehensive Metabolic Panel 02/13/22 [facility] Future Appointments Appointment Date:03/28/2022 02:15:00 PM Scheduled Provider:Senthil Caldera DO Location:FT.ONCOLOGY Appointment Type:ONC Office Visit 15 (FT) Future Scheduled Tests Laboratory* CBC w/ Auto Diff 03/08/22 * CBC w/ Auto Diff 04/05/22 * Comprehensive Metabolic Panel 03/08/22 * Comprehensive Metabolic Panel 04/05/22 [facility] Future Appointments Appointment Date:06/06/2022 01:15:00 PM Scheduled Provider:Senthil Caldera DO Location:FT.ONCOLOGY Appointment Type:ONC Office Visit 15 (FT) [facility] Future Appointments Appointment Date:08/01/2022 02:00:00 PM Scheduled Provider:Senthil Caldera DO Location:FT.ONCOLOGY Appointment Type:ONC Office Visit 15 (FT) Future Scheduled Tests Laboratory* CBC w/ Auto Diff 06/06/22 * Comprehensive Metabolic Panel 06/06/22 [facility] Future Appointments Appointment Date:08/01/2022 02:00:00 PM Scheduled Provider:Senthil Caldera DO Location:FT.ONCOLOGY Appointment Type:ONC Office Visit 15 (FT) Diagnostic Tests Pending * CA 27 29 07/09/22 Future Scheduled Tests Laboratory* CA 27 29 07/31/22 * CBC w/ Auto Diff 07/31/22 * Comprehensive Metabolic Panel 07/31/22 [facility] Future Appointments Appointment Date:08/01/2022 02:00:00 PM Scheduled Provider:Senthil Caldera DO Location:FT.ONCOLOGY Appointment Type:ONC Office Visit 15 (FT) Diagnostic Tests Pending * CA 27 29 07/30/22 [facility] Future Appointments Appointment [...] Transferrin 08/29/22 * Vitamin B12 Level 08/29/22 [facility] Future Appointments Appointment Date:09/27/2022 01:45:00 PM Scheduled Provider:Nohemi Garland Location:FT.ONCOLOGY Appointment Type:ONC Office Visit 30 (FT) Diagnostic Tests Pending * CA 27 29 09/25/22 [facility] Future Appointments Appointment Date:11/22/2022 02:15:00 PM Scheduled Provider:Senthil Caldera DO Location:FT.ONCOLOGY Appointment Type:ONC Office Visit 15 (FT) Future Scheduled Tests Laboratory* CA 27 29 10/25/22 * CA 27 29 11/22/22 * CBC w/ Auto Diff 10/25/22 * CBC w/ Auto Diff 11/22/22 * Comprehensive Metabolic Panel 10/25/22 * Comprehensive Metabolic Panel 11/22/22 [facility] Future Appointments Appointment Date:12/26/2022 02:45:00 PM Scheduled Provider:Senthil Caldera DO Location:FT.ONCOLOGY Appointment Type:ONC Office Visit 15 (FT) Future Scheduled Tests Laboratory* CA 27 29 10/25/22 * CA 27 29 11/22/22 * CBC w/ Auto Diff 10/25/22 * CBC w/ Auto Diff 11/22/22 * Comprehensive Metabolic Panel 10/25/22 * Comprehensive Metabolic Panel 11/22/22 [facility] Evaluation + Plan note Future Appointments [...] Panel 04/01/23 * Comprehensive Metabolic Panel 05/02/23 [facility] Future Appointments Appointment Date:06/12/2023 10:30:00 AM Scheduled Provider:Senthil Caldera DO Location:.ONCOLOGY Appointment Type:ONC Office Visit 30 (FT) [...] Panel 04/01/23 * Comprehensive Metabolic Panel 05/02/23 [facility] Future Appointments Appointment Date:09/12/2023 10:45:00 AM Scheduled Provider:Senthil Caldera DO Location:FT.ONCOLOGY Appointment Type:ONC Office Visit 30 (FT) Future Scheduled Tests Laboratory* CA 27 29 03/02/23 * CA 27 29 04/01/23 * CA 27 29 05/02/23 * CA 27 29 09/12/23 * Erythropoietin Level 09/12/23 * CBC w/ Auto Diff 03/02/23 * CBC w/ Auto Diff 04/01/23 * CBC w/ Auto Diff 05/02/23 * CBC w/ Auto Diff 09/12/23 * Comprehensive Metabolic Panel 03/02/23 * Comprehensive Metabolic Panel 04/01/23 * Comprehensive Metabolic Panel 05/02/23 * Comprehensive Metabolic Panel 09/12/23 * Ferritin 09/12/23 * Folate Level 09/12/23 * Iron Level 09/12/23 * Iron Percent Saturation 09/12/23 * Transferrin 09/12/23 * Vitamin B12 Level 09/12/23 [facility] noteNo assessment information available [facility] Work Phone: Hospital course Narrative No data available for this section [facility] Discharge instructions No data available for this section [facility] [place] Progress note No data available for this section [facility] Summary Purpose Family History No Family History Records Found No data available for this section No data available for this section No Family History Records Found No data available for this section No Family History Records Found Advance Directives No Advanced Directives Records Found Advance Directive Response Recorded Date/ Time Advance Directives No May 27, 2023 8:14am Chief Complaint and Reason for Visit Chief Complaint C50.41 C79.51 Additional Source Comments INFORMATION SOURCE (unrecogn ized section and content) DATE CREATED AUTHOR 09/08/2021 [facility] [place] DATE CREATED AUTHOR AUTHOR'S ORGANIZ ATION 06/08/2023 [facility] DATE CREATED AUTHOR AUTHOR'S ORGANIZ ATION 06/28/2023 [facility] Care Team (unrecognized sect ion and content) 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 [facility] [employer] [facility] provides no warranty or guarantee of the accuracy or completeness of information in this document.
[2023-07-01 07:56] LABS: Basophils Absolute Auto 0.1 10^3/uL (0.0-0.1); Basophils Percent Auto 1.7 % (0.2-2.0); Eosinophils Absolute Auto 0.1 10^3/uL (0.0-0.7); Eosinophils Percent Auto 3.3 % (0.9-7.0); Hematocrit 27.6 % (36.0-48.0); Immature Granulocytes Abs Auto 0.01 10^3/uL (0.00-0.03); Immature Granulocytes Pct Auto 0.3 % (0.0-0.5); Lymphocytes Absolute Auto 1.8 10^3/uL (1.2-3.8); Lymphocytes Percent Auto 48.6 % (20.5-60.0); Mean Corpuscular HGB Conc 32.6 g/dL (29.9-35.2); Mean Corpuscular Hemoglobin 33.7 pg (26.7-34.0); Mean Corpuscular Volume 103.4 fL (81.0-99.0); Monocytes Absolute Auto 0.3 10^3/uL (0.3-0.8); Monocytes Percent Auto 8.6 % (1.7-12.0); Neutrophils Absolute Auto 1.4 10^3/uL (1.4-6.5); Neutrophils Percent Auto 37.5 % (43.0-75.0); Platelet Count 118 10^3/uL (150-450); Red Blood Count 2.67 10^6/uL (4.20-5.40); Red Cell Distribution Width 14.1 % (11.0-15.0); White Blood Count 3.6 10^3/uL (4.0-11.0)
[2023-07-01 08:24] LABS: Alanine Aminotransferase 18 U/L (14-59); Albumin Globulin Ratio 0.7; Albumin Level 2.5 g/dL (3.4-5.0); Alkaline Phosphatase 91 U/L (46-116); Anion Gap 12.9; Aspartate Amino Transferase 12 U/L (15-37); BUN Creatinine Ratio 25.6; Bilirubin Total 0.2 mg/dL (0.2-1.0); Calcium 8.6 mg/dL (8.5-10.1); Carbon Dioxide 24.5 mmol/L (21.0-32.0); Chloride 110 mmol/L (98-107); Estimated GFR (African America 49 (>=60); Estimated GFR (Non-African Ame 41 (>=60); Globulin 3.4 g/dL; Glucose 103 mg/dL (74-106); Potassium 4.4 mmol/L (3.5-5.1); Sodium 143 mmol/L (136-145); Total Protein 5.9 g/dL (6.4-8.2)
== END 2023-07-01 01:22 | disposition home or self-care (01) ==
LOC: LAB 01:21
PROVIDERS: PCP Family Medicine; Visit Provider Family Medicine
DX: Z51.81 Encounter for therapeutic drug level monitoring (principal); C50.919 Malignant neoplasm of unspecified site of unspecified female breast
CPT/HCPCS: 36415; 80053; 85025; 86300

== ENCOUNTER 2023-07-31 06:15 | Outpatient (REF) | payer OTHER, SELFPAY ==
--- OUTSIDE RECORDS SUMMARY | 2023-07-31 06:22 | XMS_ITS | CCD ---
Author Organization [facility] Care Team Providers Care Postdoctoral Scientist Name Role Phone Rickey Askew Primary Care Physician [phone] Eva Beard Unavailable Unavailable Rickey Askew MD Unavailable Rickey Askew MD Primary Care Provider Verenice II, DO Ndiaye J Attending Provider MD Mary Rodriguez Primary Care Provider Mary Rodriguez Primary Care Unavailable Adamowicz II, Senthil J Attending Unavaila ble Adamowicz II, Senthil J Admitting Unavaila ble Adamowicz, Senthil Attending Unavailable Adamowicz, Senthil Referring Unavailable Adamowicz, DO Senthil Admitting Unavailabl e Adamowicz, Senthil Attending Unavailable Adamowicz, Senthil Admitting Unavailable Adamowicz, Senthil Attending Unavailable Adamowicz, Senthil Admitting Unavailable Nohemi Garcia Attending Unavailable Sammy QUEZADA Attending Unavailable Mgowicz, Senthil Attending Unavailable Adamowicz, Senthil Admitting Unavailable Adamowicz, Senthil Attending Unavailable Mgowicz, Senthil Admitting Unavailable Zaheer Sloan Admitting Unavailable [...] QUEZADA Attending Unavailable Sammy QUEZADA Attending Unavailable Jeffery Murphy Attending Unavailable Pedro [...] day(s), # 28 cap(s), Refills(s) 0, Pharmacy: [facility] #37, 167.6, cm, 12/19/22 20:43:00 EDT, Height/Length [...] Nausea, # 30 tab(s), Refills(s) 3, Pharmacy: [facility] #37, 162.5, cm, 08/10/21 12:38:00 EDT, Height/Length [...] # 42 tab(s), Refills(s) 12, Pharmacy: [facility] Beag171, 167.6, cm, 05/01/23 14:05:00 EST, Height/Length Dosing, [...] Daily, # 30 tab(s), Refills(s) 11, Pharmacy: [facility] #37, 162, cm, 09/08/22 15:14:00 EDT, Height/Length Dosing, 96.4, kg, 09/27/22 13:43:00 EDT, Weight Dosing Start Date: 09/27/22 Status: Ordered Vitamin D3 2000 intl units oral tablet (8 sources) Start: 12-14-2022 take 1 tablet by mouth once daily Vitamin D3 2000 intl units oral tablet 50 mcg = 1 tab(s), Oral, Daily, # 90 tab(s), Refills(s) 4, Pharmacy: [facility] #37, 167, cm, 11/01/22 20:02:00 EDT, Height/Length [...] daily, # 7 cap(s), Refills(s) 0, Pharmacy: [facility] #37, 167, cm, 11/01/22 20:02:00 EDT, Height/Length Dosing, 90.3, kg, 11/01/22 20:02:00 EDT, Weight Dosing Start Date: 11/04/22 Status: Ordered Start: 11-04-2022 ergocalciferol 50,000 intl units Cap 50,000 International_Unit = 1 cap(s), Oral, q7day, # 7 cap(s), Refills(s) 0, Pharmacy: [facility] #37, 167, cm, 11/01/22 20:02:00 EDT, Height/Length [...] Start: 07-18-2021 take 1 tablet by pio once daily lisinopril 10 mg Tab 10 [...] current use of drug therapy; Translations: [Other technician terminal and repeater (current) drug therapy] Onset: 11-02-2022 Episodic Other [...] Range Facility Physician Orderon 06-27-2023 Physician Order [id number]#1.00TIFF [facility] Consent for Treatmenton 05-24 Consent for Treatment [id number]#1.00TIFF [facility] ED Pat Eduon 06-12-2023 ED Pat Edu [facility] ED Pat Edu [facility] ED Pat Edu [facility] Oncology Progress Noteon Oncology Progress Note Normal [facility] Physician Orderon 06-12-2023 Physician Order [id number]#1.00TIFF [facility] Outside Labson 06-06-2023 Outside Labs [id number]#1.00TIFF [facility] Outside Radiologyon 06-06-19 Outside Radiology [id number]#1.00TIFF Normal [facility] ALL CBC WITH AUTO DIFFon BASOPHILS ABSOLUTE AUTO 0.1 N [facility] Basophils/100 WBC (Bld) 1.2 % 0.2 - 2.0 % [facility] Eosinophils/100 WBC (Bld) 3.8 % 0.9 - 7.0 % [facility] Erythrocyte distribution width (RBC) [Ratio] 13.4 % 11.0 - 15.0 % [facility] Hematocrit (Bld) [Volume fraction] 29.4 % Low 36.0 - 48.0 % [facility] Hemoglobin (Bld) [Mass/Vol] 9.4 g/dL Low 12.0 - 16.0 g/dL [facility] IMMATURE GRANULOCYTES ABS AUTO 0.02 [facility] Immature granulocytes/100 WBC (Bld) 0.4 % 0.0 - 0.5 % [facility] Interpretation and review of laboratory results Abnormal [facility] LYMPHOCYTES ABSOLUTE AUTO 1.8 [facility] Lymphocytes/100 WBC (Bld) 35.5 % 20.5 - 60.0 % [facility] MCH (RBC) [Entitic mass] 33.5 pg 26.7 - 34.0 pg [facility] MCHC (RBC) [Mass/Vol] 32.0 g/dL 29.9 - 35.2 g/dL [facility] MCV (RBC) [Entitic vol] 104.6 fL High 81.0 - 99.0 fL [facility] MONOCYTES ABSOLUTE AUTO 0.4 N [facility] Monocytes/100 WBC (Bld) 8.2 % 1.7 - 12.0 % [facility] NEUTROPHILS ABSOLUTE AUTO 2.5 [facility] Neutrophils/100 WBC (Bld) 50.9 % 43.0 - 75.0 % [facility] Platelet mean volume (Bld) [Entitic vol] 9.2 fL Low 9.5 - 13.5 fL [facility] TBH EO # 0.2 [facility] PLT 182 [facility] TB RBC 2.81 Low [facility]H WBC 5.0 [facility] GLUCOSE POCT GLUCOMETERSon 0 05-31-2023 Glucose [Mass/Vol] 110 mg/dL [facility] Comment on above: Random Glucose Refer ence Range is dependent on time and content of last meal. Glucose of more than 200 mg/dL in a nonstressed, ambulatory subject supports the diagnosis of Diabetes Mellitus. [facility] Dimeres Glucose Glucometer (BldC) [M ass/Vol]Ordered By: Senthil Caldera on 05-31-2023 Glucose [Mass/Vol] 110 mg/dL [facility] Comment on above: Random Glucose Refer ence Range is dependent on time and content of last meal. Glucose of more than 200 mg/dL in a nonstressed, ambulatory subject supports the diagnosis of Diabetes Mellitus. Glucose Poct Glucometerson 0 05-31-2023 Glucose [Mass/Vol] 110 mg/dL Normal [facility] Comment on above: Result Comment: [place] om Glucose Reference Range is dependent on time and content of last meal. Glucose of more than 200 mg/dL in a nonstressed, ambulatory subject supports the diagnosis of Diabetes Mellitus. PERFORMED BY: [place] [address] PATHOLOGIST MECHANISM INSPECTOR JERICA JO M.D. Performed By: #### G LULS #### Point of Care testing , PET tumor subq tx strat sb-m ton 05-31-2023 PET tumor subq tx strat sb-mt [facility] [place] [address] Nuclear Medicine Report Signed Patient: Marlen Staley MR#: [id number] 65 : 1950 Acct:[id number] Age/Sex: 72 / F ADM Date: 05/31/23 Loc: Room: Type: [facility] Attending Dr: Senthil Caldera II DO Copies [...] cavity is present. Although distribution may be medical customer service representative of asymmetric physiologic uptake, if there [...] Unremarkable ADRE (more content not included)... Normal [facility] ALL CBC WITH AUTO DIFFon BASOPHILS ABSOLUTE AUTO 0.1 N [facility] Basophils/100 WBC (Bld) 2.0 % 0.2 - 2.0 % [facility] Eosinophils/100 WBC (Bld) 3.3 % 0.9 - 7.0 % [facility] Erythrocyte distribution width (RBC) [Ratio] 13.2 % 11.0 - 15.0 % [facility] Hematocrit (Bld) [Volume fraction] 28.4 % Low 36.0 - 48.0 % [facility] Hemoglobin (Bld) [Mass/Vol] 9.2 g/dL Low 12.0 - 16.0 g/dL [facility] IMMATURE GRANULOCYTES ABS AUTO 0.02 [facility] Immature granulocytes/100 WBC (Bld) 0.4 % 0.0 - 0.5 % [facility] Interpretation and review of laboratory results Abnormal [facility] LYMPHOCYTES ABSOLUTE AUTO 2.0 [facility] Lymphocytes/100 WBC (Bld) 43.8 % 20.5 - 60.0 % [facility] MCH (RBC) [Entitic mass] 33.5 pg 26.7 - 34.0 pg [facility] MCHC (RBC) [Mass/Vol] 32.4 g/dL 29.9 - 35.2 g/dL [facility] MCV (RBC) [Entitic vol] 103.3 fL High 81.0 - 99.0 fL [facility]OCYTES [facility]OLUTE [facility] Monocytes/100 WBC (Bld) 6.9 % 1.7 - 12.0 % [facility] NEUTROPHILS ABSOLUTE AUTO 2.0 [facility] Neutrophils/100 WBC (Bld) 43.6 % 43.0 - 75.0 % [facility] Platelet mean volume (Bld) [Entitic vol] 9.0 fL Low 9.5 - 13.5 fL [facility] TBH EO # 0.2 [facility] TBH PLT 226 [facility] TBH RBC 2.75 Low [facility] TBH WBC 4.5 [facility] Insurance Correspondenceon 0 05-23-2023 Insurance Correspondence [id number]#1.00TIFF Normal [facility] Oncology Noteon 05-20-[address] [facility] Comment on above: Result Comment: Elec tronically Signed By: Jane FARMER, Yolande Houston\.br\Date and Time Signed: 05/20/23 14:48 EST Physician Orderon 05-15-2023 Physician Order [id number]#1.00TIFF Normal [facility] Comment on above: Other Comment: wrong patient Physician Orderon 05-14-2023 Physician Order [id number]#1.00TIFF Normal [facility] Outside Labson 05-02-2023 Outside Labs [id number]#1.00TIFF Normal [facility] Outside Labs [id number]#1.00TIFF Normal [facility] Physician Orderon 05-02-2023 Physician Order [id number]#1.00TIFF Normal [facility] Physician Order [id number]#1.00TIFF Normal [facility] Consent for Treatmenton 04-22 Consent for Treatment [id number]#1.00TIFF Normal [facility] Oncology Noteon 05-01-[address] [facility] Comment on above: Result Comment: Elec tronically Signed By: Magda FARMER, Annia\.br\Date and Time Signed: 05/01/23 15:05 EST Oncology Progress Noteon Oncology Progress Note Normal [facility] Outside Labson 05-01-2023 Outside Labs [id number]#1.00TIFF Normal [facility] ONC - Otheron 02-07-2023 ONC - Other [id number]#1.00TIFF Normal [facility] Physician Orderon 02-05-2023 Physician Order [id number]#1.00TIFF Normal [facility] Consent for Treatmenton 01-20 Consent for Treatment [id number]#1.00TIFF Normal [facility] Oncology Noteon 01-30-[address] [facility] Comment on above: Result Comment: Elec tronically Signed By: Jane FARMER, Yolande Houston\.br\Date and Time Signed: 01/30/23 17:07 EDT Oncology Progress Noteon Oncology Progress Note Normal [facility] Outside Labson 01-29-2023 Outside Labs [id number]#1.00TIF F [facility] Outside Labs [id number]#1.00TIF F [facility] Outside Labson 01-28-2023 Outside Labs [id number]#1.00TIFF [facility] Coding Queryon 01-16-2023 Coding Query [facility] ONC - Otheron 01-16-2023 ONC - Other [id number]#1.00CD:1 27 [facility] ONC - Otheron 01-09-2023 ONC - Other [id number]#1.00CD:1 27 [facility] Discharge Instructionson Discharge Instructions [id number]#1.00CD:1 27 [facility] Transfer Documentson 023 Transfer Documents [id number]#1.00CD:1 27 [facility] CHEMISTRYOrdered By: Lab ROP User on 12-23-2022 Glucose [Mass/Vol] 111 mg/dL High 55 - 99 mg/dL [facility] P[facility] Subsection Comment on above: Result Comment: Navin BOSE POC Device SN [id number] Invalid Interpretation Code [facility] POC Subsection POC User ID [id number] Invalid Interpretation Code [facility] P[facility] Subsection POC Username JUAN HENNESSY Invalid Interpretation Code [facility] POC Subsection Capillary Glucose POCon Glucose [Mass/Vol] 111 mg/dL High 55-99 [facility] Comment on above: Result Comment: Navin BOSE Performed By: #### 2 [id number] ####[facility] [address] [place] [address] Discharge Note-Nursingon Discharge Note-Nursing Normal [facility] C Urineon 12-22-2022 Bacteria identified Cx Nom (U) [facility] Comment on above: Performed By: #### 1 [id number], [id number] ####[facility] [address] [place] [address] CHEMISTRYOrdered By: Lab ROP User on 12-22-2022 Glucose [Mass/Vol] 155 mg/dL High 55 - 99 mg/dL [facility] POC Subsection Comment on above: Result Comment: Navin BOSE POC Device SN [id number] Invalid Interpretation Code FT POC Subsection POC User ID [id number] Invalid Interpretation Code FT POC Subsection POC Username DARRYN SANTOS Invalid Interpretation Code [facility] POC Subsection Glucose [Mass/Vol] 129 mg/dL High 55 - 99 mg/dL [facility] POC Subsection Comment on above: Result Comment: Christine donna Meter POC Device SN [id number] Invalid Interpretation Code [facility] POC Subsection POC User ID [id number] Invalid Interpretation Code [facility] POC Subsection POC Username ROOPA LIM Invalid Interpretation Code [facility] POC Subsection Capillary Glucose POCon Glucose [Mass/Vol] 155 mg/dL High 55-99 [facility] Comment on above: Result Comment: Navin BOSE Performed By: #### 2 [id number] ####[facility] [address] [place] [address] Glucose [Mass/Vol] 129 mg/dL High 55-99 [facility] Comment on above: Result Comment: Christine donna Meter Performed By: #### 2 [id number] ####[facility] [address] [place] [address] Glucose [Mass/Vol] 158 mg/dL High 55-99 [facility] Comment on above: Result Comment: Christine donna Meter Performed By: #### 2 [id number] ####[facility] [address] [place] [address] Glucose [Mass/Vol] 144 mg/dL High 55-99 [facility] Comment on above: Result Comment: Navin BOSE Performed By: #### 2 [id number] ####[facility] [address] [place] [address] 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 Note - Attila e Manageron 12-22-2022 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 Note - Mission Manager Normal [facility] Comment on above: Result Comment: Elec tronically Signed By: Jolanta Stubbs RN\.br\Date and Time Signed: 12/22/22 16:25 EDT Progress Note-Physicianon Progress Note-Physician Normal [facility] Comment on above: Result Comment: Elec tronically Signed By: Zaheer Sloan DO.br\Date and Time Signed: 12/22/22 09:47 EDT Auto Diffon 12-21-2022 Basophils/100 WBC (Bld) 2.6 % High 0.0-2.0 [facility] Comment on above: Order Comment: Order Added by Discern Expert. Performed By: #### 2 375707, 057328575, 90977075, 0800185, 6333297 ####[facility] [address] [place] [address] Basophils/Leukocytes Auto (Bld) [Pure # fraction] 0.1 E9/L Normal 0.0-0.2 [facility] Comment on above: Order Comment: Order Added by Discern Expert. Performed By: #### 2 440937, 483213987, 00222407, 8263030, 6511796 ####[facility] [address] [place] [address] Eosinophils/100 WBC (Bld) 2.5 % Normal 0.0-8.0 [facility] Comment on above: Order Comment: Order Added by Discern Expert. Performed By: #### 2 469929, 499051087, 68105035, 5672653, 1827220 ####[facility] [address] [place] [address] Eosinophils/Leukocytes Auto (Bld) [Pure # fraction] 0.1 E9/L Normal 0.0-0.5 [facility] Comment on above: Order Comment: Order Added by Discern Expert. Performed By: #### 2 246844, 765624186, 64090591, 0913612, 7176558 ####[facility] [address] [place] [address] Lymphocytes/100 WBC (Bld) 42.1 % Normal 14.0-50.0 [facility] Comment on above: Order Comment: Order Added by Discern Expert. Performed By: #### 2 464433, 156834170, 71196221, 2112531, 3817002 ####[facility] [address] [place] [address] Lymphocytes/Leukocytes Auto (Bld) [Pure # fraction] 1.4 E9/L Normal 1.0-4.0 [facility] Comment on above: Order Comment: Order Added by Discern Expert. Performed By: #### 2 384555, 996448639, 22044806, 6466468, 5811237 ####[address] [address] Monocytes/100 WBC (Bld) 13.6 % Normal 4.0-14.0 [facility] Comment on above: Order Comment: Order Added by Discern Expert. Performed By: #### 2 599412, 160283731, 98137780, 7106453, 2878043 ####[address] [address] Monocytes/Leukocytes Auto (Bld) [Pure # fraction] 0.4 E9/L Normal 0.2-1.0 [facility] Comment on above: Order Comment: Order Added by Discern Expert. Performed By: #### 2 258351, 355049004, 34326072, 9772220, 7528589 ####[address] [address] Neutrophils/100 WBC (Bld) 39.2 % Normal 36.0-75.0 [facility] Comment on above: Order Comment: Order Added by Discern Expert. Performed By: #### 2 458750, 925582054, 46087681, 6318995, 7655104 ####[address] [place] [address] Neutrophils/Leukocytes Auto (Bld) [Pure # fraction] 1.3 E9/L Low 2.0-7.5 [facility] Comment on above: Order Comment: Order Added by Discern Expert. Performed By: #### 2 257286, 247887234, 96141096, 9146094, 8520276 ####[facility] [address] [place] [address] BMPon 12-21-2022 Anion gap [Moles/Vol] 11 mmol/L Normal 6-16 [facility] Comment on above: Performed By: #### 2 448483, 372005909, 37747056, 1485753, 1456858 ####[facility] [address] [place] [address] Calcium [Mass/Vol] 8.9 mg/dL Normal 8.9-11.1 [facility] Comment on above: Performed By: #### 2 653893, 515811533, 13943556, 9152146, 0699556 ####[facility] [address] [place] [address] Chloride [Moles/Vol] 112 mmol/L High 101-111 [facility] Comment on above: Performed By: #### 2 411917, 991979582, 82323736, 9619358, 0874487 ####[facility] [address] [facility] [address] CO2 [Moles/Vol] 22 mmol/L Normal 21-31 [facility] Comment on above: Performed By: #### 2 853299, 121941467, 96980503, 4877868, 9064128 ####[facility] [address] [place] [address] Creatinine [Mass/Vol] 1.4 mg/dL High 0.5-1.3 [facility] Comment on above: Performed By: #### 2 359801, 006742621, 68357257, 7024294, 3057834 ####[facility] [address] [place] [address] Glucose [Mass/Vol] 102 mg/dL Normal 55-199 [facility] Comment on above: Result Comment: If t his glucose result represents a fasting glucose, interpretation should refer to the following reference range: 55-99 mg/dL Performed By: #### 2 028739, 915545606, 98109711, 5978829, 4284179 ####[facility] [address] [place] [address] Potassium [Moles/Vol] 4.0 mmol/L Normal 3.5-5.3 [facility] Comment on above: Performed By: #### 2 573937, 347577993, 41328553, 1764110, 4614632 ####[facility] [address] [place] [address] Sodium [Moles/Vol] 141 mmol/L Normal 135-145 [facility] Comment on above: Performed By: #### 2 827541, 983677185, 67217458, 3873560, 6420335 ####[facility] [address] [place] [address] Urea nitrogen [Mass/Vol] 36 mg/dL High 5-21 [facility] Comment on above: Performed By: #### 2 567093, 063113593, 46166367, 1043841, 7939254 ####[facility] [address] [place] [address] Urea nitrogen/Creatinine [Mass ratio] 26 No Units High 10-20 [facility] Comment on above: Performed By: #### 2 576972, 596916154, 98408052, 2748281, 6053765 ####[facility] [address] [place] [address] C Urineon 12-21-2022 Bacteria identified Cx Nom (U) Normal [facility] Comment on above: Performed By: #### 2 221658, 10666441 ####[facility] [address] [place] [address] CBC w/ Auto Diffon 3 Erythrocyte distribution width (RBC) [Ratio] 18.4 % High 10.9-14.2 [facility] Comment on above: Performed By: #### 2 475830, 763545020, 20525949, 1532646, 2459604 ####[facility] [address] [place] [address] Hematocrit (Bld) [Volume fraction] 26.8 % Low 34.0-46.0 [facility] Comment on above: Performed By: #### 2 204233, 192615184, 73686425, 1457776, 5454501 ####[facility] [address] [place] [address] Hemoglobin (Bld) [Mass/Vol] 9.3 g/dL Low 12.0-16.0 [facility] Comment on above: Performed By: #### 2 573353, 478847822, 17074293, 6043162, 8151006 ####[address] [address] MCH (RBC) [Entitic mass] 34.3 pg High 27.0-34.0 [facility] Comment on above: Performed By: #### 2 150070, 923142350, 60441182, 2521318, 6082518 ####[address] [address] MCHC (RBC) [Mass/Vol] 34.8 g/dL Normal 31.4-36.0 [facility] Comment on above: Performed By: #### 2 034781, 956290339, 65733311, 1407965, 0404516 ####[address] [address] MCV (RBC) [Entitic vol] 98.6 fL Normal 80.0-100.0 [facility] Comment on above: Performed By: #### 2 652685, 110929021, 28093630, 9054880, 3074691 ####[address] [place] [address] Platelet mean volume (Bld) [Entitic vol] 6.8 fL Normal 6.4-10.8 [facility] Comment on above: Performed By: #### 2 899974, 593802882, 60579159, 3734160, 3674890 ####[facility] [address] [place] [address] Platelets (Bld) [#/Vol] 201.0 E9/L Normal 150. 0-500. 0 [facility] Comment on above: Performed By: #### 2 558512, 880916274, 08735023, 0892821, 3232270 ####[facility] [address] [place] [address] RBC (Bld) [#/Vol] 2.7 E12/L Low 4.3-5.9 [facility] Comment on above: Performed By: #### 2 200712, 452285191, 94651553, 7628524, 1239462 ####[facility] [address] [place] [address] WBC corrected for nucl RBC Auto (Bld) [#/Vol] 3.3 E9/L Low 4.0-11.0 [facility] Comment on above: Performed By: #### 2 544878, 784757045, 35357159, 6499795, 7638224 ####[facility] [address] [place] [address] CHEMISTRYOrdered By: SYSTEM SYSTEM on 12-21-2022 Anion gap [Moles/Vol] 11 mmol/L Normal 6 - 16 mEq/L [facility] Remisol Calcium [Mass/Vol] 8.9 mg/dL Normal 8.9 - 11. 1 mg/dL [facility] Remisol Chloride [Moles/Vol] 112 mmol/L High 101 - 1 11 mmol/L [facility] Remisol CO2 [Moles/Vol] 22 mmol/L Normal 21 - 31 mmol/L [facility] Remisol Creatinine [Mass/Vol] 1.4 mg/dL High 0.5 - 1.3 mg/dL [facility] Remisol GFR/1.73 sq M.predicted among non-blacks MDRD (S/P/Bld) [Vol rate/Area] 40 mL/min/1.73 m2 Low >=59mL/min /1.73 m2 [facility] Chem S Glucose [Mass/Vol] 102 mg/dL Normal 55 - 199 mg/dL [facility] Remisol Potassium [Moles/Vol] 4.0 mmol/L Normal 3.5 - 5.3 mmol/L [facility] Remisol Sodium [Moles/Vol] 141 mmol/L Normal 135 - 145 mmol/L [facility] Remisol Urea nitrogen [Mass/Vol] 36 mg/dL High 5 - 21 mg/dL [facility]/Creatinine [Mass ratio] 26 mg/mg High 10 - 20 [facility] Remisol CHEMISTRYOrdered By: Gavino Lyle on 12-21-2022 HbA1c (Bld) [Mass fraction] 7.1 % High <=5.9% [facility] ChemAutoSS Capillary Glucose POCon Glucose [Mass/Vol] 127 mg/dL High 55-99 [facility] Comment on above: Result Comment: Navin BOSE Performed By: #### 2 [id number] ####[facility] [address] [place] [address] Glucose [Mass/Vol] 160 mg/dL High 55-99 [facility] Comment on above: Result Comment: Navin BOSE Performed By: #### 2 [id number] ####[facility] [address] [place] [address] Glucose [Mass/Vol] 132 mg/dL High 55-99 [facility] Comment on above: Result Comment: Navin BOSE Performed By: #### 2 [id number] ####[facility] [address] [place] [address] Glucose [Mass/Vol] 115 mg/dL High 55-99 [facility] Comment on above: Result Comment: Navin BOSE Performed By: #### 2 [id number] ####[facility] [address] [place] [address] HEMATOLOGYOrdered By: SYSTEM SYSTEM on 12-21-2022 Basophils/100 WBC (Bld) 2.6 % High 0.0 - 2.0 % [facility] HemeAutoSS Basophils/Leukocytes Auto (Bld) [Pure # fraction] [...] 2.7 E12/L Low 4.3 - 5.9 E12/L [facility] HemeAutoSS WBC corrected for nucl RBC Auto (Bld) [#/Vol] 3.3 E9/L Low 4.0 - 11.0 E9/L [facility] HemeAutoSS JczI0odi 12-21-2022 HbA1c (Bld) [Mass fraction] 7.1 % High <=5.9 [facility] Comment on above: Performed By: #### 2 557758, 188228540, 25812727, 4515569, 5884663 ####[facility] [address] [place] [address] Insurance Correspondence Off iceon 12-21-2022 Insurance Correspondence Office [id number]#1.00CD:[address] [facility] 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 Note - Attila e Manageron 12-21-2022 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 Note - Mission Manager Normal [facility] Comment on above: Result Comment: Elec tronically Signed By: Brooklynn Connor\.br\Date and Time Signed: 12/21/22 11:15 EDT 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 Note - Rafat n 12-21-2022 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 Note - OT Normal [facility] 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 Note - PTo n 12-21-2022 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 Note - PT Normal [facility] 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 Note - Soc ial Workeron 12-21-2022 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 Note - Harpooner Normal [facility] Message from Medicareon Message from Medicare [id number]#1.00CD:[address] [facility] Progress Note-Physicianon Progress Note-Physician Normal [facility] Comment on above: Result Comment: Elec tronically Signed By: Zaheer Sloan DO.br\Date and Time Signed: 12/21/22 14:15 EDT eGFRon 12-21-2022 GFR/1.73 sq M.predicted among non-blacks MDRD (S/P/Bld) [Vol rate/Area] 40 mL/min/1.73 m2 Low >=59 [facility] Comment on above: Order Comment: Order added by Discern Expert. Result Comment: Shoes Hand Sewer aubrey kidney disease could be indicated at eGFR's of less than 60 mL/min/1.73m2. Kidney failure is indicated at less than 15 mL/min/1.73m2. Performed By: #### 2 102402, 698199818, 36782836, 0396228, 3441829 ####[facility] [address] [place] [address] Auto Diffon 12-20-2022 Basophils/100 WBC (Bld) 3.5 % High 0.0-2.0 [facility] Comment on above: Order Comment: Order Added by Discern Expert. Performed By: #### 2 979134, 45503037, 6193301, 70256312, 9593276, 7535881 ####[facility] [address] [place] [address] Basophils/Leukocytes Auto (Bld) [Pure # fraction] 0.1 E9/L Normal 0.0-0.2 [facility] Comment on above: Order Comment: Order Added by Discern Expert. Performed By: #### 2 034457, 07472011, 8377797, 63958513, 8381466, 4160552 ####[facility] [address] [place] [address] Eosinophils/100 WBC (Bld) 1.3 % Normal 0.0-8.0 [facility] Comment on above: Order Comment: Order Added by Discern Expert. Performed By: #### 2 867911, 28739237, 5859785, 43732760, 2835930, 2391304 ####[facility] [address] [place] [address] Eosinophils/Leukocytes Auto (Bld) [Pure # fraction] 0.0 E9/L Normal 0.0-0.5 [facility] Comment on above: Order Comment: Order Added by Faviola Expert. Performed By: #### 2 876528, 93479045, 2398461, 57900706, 8188778, 4115873 ####[facility] [address] [place] [address] Lymphocytes/100 WBC (Bld) 28.4 % Normal 14.0-50.0 [facility] Comment on above: Order Comment: Order Added by Discern Expert. Performed By: #### 2 874938, 19581860, 8621703, 56840192, 1082794, 2371861 ####[address] [place] [address] Lymphocytes/Leukocytes Auto (Bld) [Pure # fraction] 1.1 E9/L Normal 1.0-4.0 [facility] Comment on above: Order Comment: Order Added by Discern Expert. Performed By: #### 2 561703, 78963167, 0964627, 09487482, 0316803, 1674216 ####[address] [address] Monocytes/100 WBC (Bld) 12.5 % Normal 4.0-14.0 [facility] Comment on above: Order Comment: Order Added by Faviola Expert. Performed By: #### 2 042794, 54444840, 0336646, 34863046, 2790701, 4019636 ####[address] [address] Monocytes/Leukocytes Auto (Bld) [Pure # fraction] 0.5 E9/L Normal 0.2-1.0 [facility] Comment on above: Order Comment: Order Added by Discern Expert. Performed By: #### 2 514914, 74459118, 1475681, 60923249, 5819696, 1105741 ####[address] [place] [address] Neutrophils/100 WBC (Bld) 54.3 % Normal 36.0-75.0 [facility] Comment on above: Order Comment: Order Added by Discern Expert. Performed By: #### 2 221810, 76009587, 5345834, 22016373, 8525733, 6663985 ####[address] [place] [address] Neutrophils/Leukocytes Auto (Bld) [Pure # fraction] 2.1 E9/L Normal 2.0-7.5 [facility] Comment on above: Order Comment: Order Added by Discern Expert. Performed By: #### 2 492499, 22179824, 2860094, 81629123, 2776842, 2040744 ####[facility] [address] [place] [address] BMPon 12-20-2022 Creatinine [Mass/Vol] 1.3 mg/dL Normal 0.5-1.3 [facility] Comment on above: Performed By: #### 2 931568, 91489469, 6972454, 70567564, 5127293, 8827270 ####[facility] [address] [place] [address] Urea nitrogen [Mass/Vol] 36 mg/dL High 5-21 [facility] Comment on above: Performed By: #### 2 761022, 71888942, 5569715, 28643182, 5411640, 1616261 ####[facility] [address] [place] [address] Urea nitrogen/Creatinine [Mass ratio] 28 No Units High 10-20 [facility] Comment on above: Performed By: #### 2 206360, 67662967, 3819351, 50479629, 8886119, 3468127 ####[facility] [address] [place] [address] Anion gap [Moles/Vol] 13 mmol/L Normal 6-16 [facility] Comment on above: Performed By: #### 2 210944, 89367502, 4075341, 42892951, 1486037, 8017010 ####[facility] [address] [place] [address] Calcium [Mass/Vol] 9.6 mg/dL Normal 8.9-11.1 [facility] Comment on above: Performed By: #### 2 987803, 53391176, 8322689, 65961249, 6015610, 3932966 ####[facility] [address] [place] [address] Chloride [Moles/Vol] 108 mmol/L Normal 101-111 [facility] Comment on above: Performed By: #### 2 548318, 93457625, 3886917, 03722552, 0109508, 6528285 ####[facility] [address] [place] [address] CO2 [Moles/Vol] 21 mmol/L Normal 21-31 [facility] Comment on above: Performed By: #### 2 809785, 44273061, 4105004, 02348806, 0723699, 8376372 ####[facility] [address] [place] [address] Glucose [Mass/Vol] 136 mg/dL Normal 55-199 [facility] Comment on above: Result Comment: If t his glucose result represents a fasting glucose, interpretation should refer to the following reference range: 55-99 mg/dL Performed By: #### 2 833346, 18538414, 8845039, 95587350, 3634800, 5508821 ####[facility] [address] [place] [address] Potassium [Moles/Vol] 4.2 mmol/L Normal 3.5-5.3 [facility] Comment on above: Performed By: #### 2 289605, 08655530, 3704994, 83792277, 3183980, 3522789 ####[facility] [address] [place] [address] Sodium [Moles/Vol] 138 mmol/L Normal 135-145 [facility] Comment on above: Performed By: #### 2 957627, 22276331, 3744519, 49185597, 9657190, 6510280 ####[facility] [address] [place] [address] CBC w/ Auto Diffon 3 Erythrocyte distribution width (RBC) [Ratio] 19.0 % High 10.9-14.2 [facility] Comment on above: Performed By: #### 2 096191, 34594391, 8847703, 04869724, 6292504, 5634555 ####[facility] [address] [place] [address] Hematocrit (Bld) [Volume fraction] 31.3 % Low 34.0-46.0 [facility] Comment on above: Performed By: #### 2 807609, 07212371, 4250414, 00583614, 0797604, 0520844 ####[facility] [address] [place] [address] Hemoglobin (Bld) [Mass/Vol] 10.4 g/dL Low 12.0-16.0 [facility] Comment on above: Performed By: #### 2 390569, 08922774, 0106391, 07839332, 1619444, 6166713 ####[facility] [address] [place], [place] [address] MCH (RBC) [Entitic mass] 33.3 pg Normal 27.0-34.0 [facility] Comment on above: Performed By: #### 2 492202, 21287549, 6437659, 26819353, 9921409, 6622878 ####[facility] [address] [place] [address] MCHC (RBC) [Mass/Vol] 33.3 g/dL Normal 31.4-36.0 [facility] Comment on above: Performed By: #### 2 851752, 87349338, 7340612, 98263274, 4734459, 2390018 ####[facility] [address] [place] [address] MCV (RBC) [Entitic vol] 99.8 fL Normal 80.0-100.0 [facility] Comment on above: Performed By: #### 2 973139, 75233841, 5998821, 59193731, 8895935, 8766533 ####[facility] [address] [place] [address] Platelet mean volume (Bld) [Entitic vol] 6.8 fL Normal 6.4-10.8 [facility] Comment on above: Performed By: #### 2 745995, 14259980, 3723797, 53758332, 4911291, 5531522 ####[facility] [address] [place] [address] Platelets (Bld) [#/Vol] 212.0 E9/L Normal 150. 0-500. 0 [facility] Comment on above: Performed By: #### 2 756379, 81760135, 8166593, 14775535, 8815858, 1872688 ####[facility] [address] [place] [address] RBC (Bld) [#/Vol] 3.1 E12/L Low 4.3-5.9 [facility] Comment on above: Performed By: #### 2 627041, 89773029, 9468981, 42304346, 9347713, 9551816 ####[facility] [address] [place] [address] WBC corrected for nucl RBC Auto (Bld) [#/Vol] 3.9 E9/L Low 4.0-11.0 [facility] Comment on above: Performed By: #### 2 439221, 25183368, 9707758, 34149884, 2543584, 4346317 ####[facility] [address] [place] [address] CHEMISTRYOrdered By: SYSTEM SYSTEM on 12-20-2022 Troponin [...] 5 - 21 mg/dL [facility] Remisol Urea nitrogen/Creatinine [Mass ratio] 28 mg/mg High 10 - 20 [facility] Remisol Consent for Treatmenton 11-22 Consent for Treatment [id number]#1.00CD:[address] [facility] Consent for Treatment [id number]#1.00CD:[address] [facility] Discharge Instructionson Discharge Instructions [id number]#1.00CD:[address] [facility] ED Clinical Summaryon 2022 ED Clinical Summary Normal [facility] ED Clinical Summary Normal [facility] ED Note-Physicianon 12-21-19 ED Note-Physician Normal [facility] Comment on above: Result Comment: Elec tronically Signed By: Pedro Nava DO\.br\Date and Time Signed: 12/20/22 19:22 EDT ED Note-Physician Normal [facility] Comment on above: Result Comment: Elec tronically Signed By: David Tong MD\.br\Date and Time Signed: 12/20/22 00:40 EDT ED Patient Education Noteon 12-20-2022 ED Patient Education Note Normal [facility] ED Patient Education Note Normal [facility] ED Patient Summaryon 023 ED Patient Summary Normal [facility] ED Patient Summary Normal [facility] HEMATOLOGYOrdered By: SYSTEM SYSTEM on 12-20-2022 Basophils/100 [...] 12-20-2022 Bilirubin.direct [Mass/Vol] 0.1 mg/dL Normal 0.1-0.4 [facility] Comment on above: Performed By: #### 2 016111, 75609148, 6071010, 80201742, 5030595, 9533426 ####[facility] [address] [place] [address] Bilirubin.indirect [Mass or moles/Vol] 0.8 mg/dL Normal 0.1-0.9 [facility] Comment on above: Performed By: #### 2 745145, 67277891, 4569750, 56990771, 6380154, 8127722 ####[facility] [address] [place] [address] Albumin [Mass/Vol] 3.5 g/dL Normal 3.3-5.0 [facility] Comment on above: Performed By: #### 2 816465, 98215888, 6396503, 76253828, 1285083, 6655705 ####[facility] [address] [place] [address] Albumin/Globulin (S) [Mass conc ratio] 0.9 Low 1.1-2.2 [facility] Comment on above: Performed By: #### 2 616797, 41602427, 2369215, 44950335, 2353732, 8684052 ####[facility] [address] [place] [address] ALP [Catalytic activity/Vol] 101 Int._Unit/L High 21-98 [facility] Comment on above: Performed By: #### 2 367746, 65920958, 8945229, 85483261, 0263120, 9819390 ####[facility] [address] [place] [address] ALT No additional P-5'-P [Catalytic activity/Vol] 20 Int._Unit/L Normal 6-46 [facility] Comment on above: Performed By: #### 2 367101, 49292046, 4270491, 01881349, 6437733, 7105983 ####[facility] [address] [place] [address] AST [Catalytic activity/Vol] 18 Int._Unit/L Normal 5-43 [facility] Comment on above: Performed By: #### 2 675990, 61531504, 1859787, 12986828, 8112719, 7025608 ####[facility] [address] [place] [address] Bilirubin [Mass/Vol] 0.9 mg/dL Normal 0.0-1.1 [facility] Comment on above: Performed By: #### 2 764050, 75070170, 9045615, 95209752, 3976114, 9556516 ####[facility] [address] [place] [address] Globulin (S) [Mass/Vol] 3.8 g/dL Normal 1.4-4.0 [facility] Comment on above: Performed By: #### 2 327398, 37184192, 8214645, 75556199, 5322558, 1202467 ####[facility] [address] [place] [address] Protein [Mass/Vol] 7.3 g/dL Normal 6.0-7.8 [facility] Comment on above: Performed By: #### 2 862205, 88490256, 4873330, 05967533, 5821930, 2890553 ####[facility] [address] [place] [address] Laboratory - Microbiology an d Antimicrobial susceptibilityOrdered By: Ninfa Sawyer on 12-20-2022 Bacteria identified Cx Nom (U) 1,000 cfu/ml Mixed skin contaminants [facility] Monitor Recordon 12-20-2022 Monitor Record [id number]#1.00CD:[address] [facility] Monitor Record [id number]#1.00CD:[address] [facility] Pre-Arrival Noteon 3 Pre-Arrival Note Normal [facility] Troponin 0 Hr.on 12-20-2022 Troponin I.cardiac [Mass/Vol] 9.80 pg/mL Low 10.10-27.[address] [facility] Comment on above: Result Comment: The 95% CI (Confidence Interval) PPV (Positive Predictive Value) for myocardial infarction in females is 38 pg/mL, in males 51 pg/mL. The results should be used in conjunction with clinical conditions of myocardial infarction.(Access High Sensitivity Troponin I Instructions For Use, DATY, November 2017) Performed By: #### 2 430624, 10678383, 1103903, 56140111, 4856244, 9666441 ####[facility] [address] [place] [address] Troponin 3 Hr.on 12-20-2022 Troponin I.cardiac [Mass/Vol] 10.20 pg/mL Normal 10.10-27.[address] [facility] Comment on above: Result Comment: The 95% CI (Confidence Interval) PPV (Positive Predictive Value) for myocardial infarction in females is 38 pg/mL, in males 51 pg/mL. The results should be used in conjunction with clinical conditions of myocardial infarction.([employer] High Sensitivity Troponin I Instructions For Use, DATY, November 2017) Performed By: #### 1 0726408 ####[facility] [address] [place] [address] UA With Cult Reflexon 2022 Bilirubin Ql (U) Negative Normal Negative [facility] Comment on above: Performed By: #### 1 0760052, 0478399 ####[facility] [address] [place] [address] Clarity (U) CLEAR Normal Clear [facility] Comment on above: Performed By: #### 1 3226171, 6080880 ####[facility] [address] [place] [address] Color (U) STRAW Abnormal Yellow [facility] Comment on above: Performed By: #### 1 5252942, 1789381 ####[facility] [address] [place] [address] Epithelial cells.squamous LM.HPF (Urine sed) [#/Area] 0-2 Normal 0-2 [facility] Comment on above: Performed By: #### 1 7833536, 9146687 ####[facility] [address] [place] [address] Glucose Test strip (U) [Mass/Vol] Negative Normal Negative [facility] Comment on above: Performed By: #### 1 1930391, 5933513 ####[address] [address] Hemoglobin Ql (U) TRACE Abnormal Negative [facility] Comment on above: Performed By: #### 1 2940613, 2970475 ####[address] [address] Ketones (U) [Mass/Vol] Negative Normal Negative [facility] Comment on above: Performed By: #### 1 0893823, 9738756 ####[address] [address] [place].plasma/[place]. RBC (Bld) [Mass ratio] 0-3 Normal 0-3 [facility] Comment on above: Performed By: #### 1 4096623, 2256347 ####[address] [address] Nitrite Ql (U) Negative Normal Negative [facility] Comment on above: Performed By: #### 1 7262118, 2860786 ####[facility] [address] [place] [address] pH (U) 5.5 [pH] Invalid Interpretation Code 5.0-9.0 [facility] Comment on above: Performed By: #### 1 5093691, 7596801 ####[address] [address] Protein (U) [Mass/Vol] Negative Normal Negative [facility] Comment on above: Performed By: #### 1 9611150, 4727247 ####[place] [address] Specific gravity (U) [Rel density] <=1.005 Invalid Interpretation Code 1.005-1.[address] [facility] Comment on above: Performed By: #### 1 2510287, 2522150 ####[address] [address] Type of Urine collection method Clean Catch Normal [facility] Comment on above: Performed By: #### 1 1522990, 2581888 ####[address] [address] Urobilinogen Qn (U) 0.2 {Tj'U}/dL Normal 0.0-1.0 [facility] Comment on above: Performed By: #### 1 4944725, 8798358 ####[place] [address] WBC Auto Ql (U) 1+ Abnormal Negative [facility] Comment on above: Performed By: #### 1 2954446, 4626322 ####[place] [address] WBC LM.HPF (Urine sed) [#/Area] 6-15 Abnormal 0-5 [facility] Comment on above: Performed By: #### 1 3657177, 3655748 ####[address] [address] UA Spec Desc Catheter Normal [facility] Comment on above: Result Comment: Mini cath specimen Performed By: #### 2 401020, 56598008 ####[address] [address] Bacteria LM Ql (Urine sed) 2+ /HPF Abnormal Trace [facility] Comment on above: Performed By: #### 2 629370, 57338384 ####[address] [address] Bilirubin Ql (U) Negative Normal Negative [facility] Comment on above: Performed By: #### 2 026544, 29561670 ####[place] [address] Clarity (U) CLEAR Normal Clear [facility] Comment on above: Performed By: #### 2 847006, 15263290 ####[address] [address] Color (U) YELLOW Normal Yellow [facility] Comment on above: Performed By: #### 2 500554, 43707796 ####[place] [address] Epithelial cells.squamous LM.HPF (Urine sed) [#/Area] 0-2 Normal 0-2 [facility] Comment on above: Performed By: #### 2 976166, 35587333 ####[place] [address] Glucose Test strip (U) [Mass/Vol] Negative Normal Negative [facility] Comment on above: Performed By: #### 2 450824, 88667221 ####[place] [address] Hemoglobin Ql (U) Negative Normal Negative [facility] Comment on above: Performed By: #### 2 970953, 26556935 ####[place] [address] Ketones (U) [Mass/Vol] Negative Normal Negative [facility] Comment on above: Performed By: #### 2 561235, 36056731 ####[place] [address] [place].plasma/[place]. RBC (Bld) [Mass ratio] 0-3 Normal 0-3 [facility] Comment on above: Performed By: #### 2 378143, 35150389 ####[address] [address] Nitrite Ql (U) Positive Abnormal Negative [facility] Comment on above: Performed By: #### 2 031486, 44043440 ####[address] [address] pH (U) 6.0 [pH] Invalid Interpretation Code 5.0-9.0 [facility] Comment on above: Performed By: #### 2 388200, 06248870 ####[address] [address] Protein (U) [Mass/Vol] Negative Normal Negative [facility] Comment on above: Performed By: #### 2 910096, 40507494 ####[place] [address] Specific gravity (U) [Rel density] 1.025 Invalid Interpretation Code 1.005-1.[address] [facility] Comment on above: Performed By: #### 2 275819, 36633058 ####[place] [address] Urobilinogen Qn (U) 0.2 {Tj'U}/dL Normal 0.0-1.0 [facility] Comment on above: Performed By: #### 2 692624, 89902412 ####[address] [address] WBC Auto Ql (U) TRACE Abnormal Negative [facility] Comment on above: Performed By: #### 2 884024, 68613786 ####[address] [address] WBC LM.HPF (Urine sed) [#/Area] 0-5 Normal 0-5 [facility] Comment on above: Performed By: #### 2 837843, 97231152 ####[place] [address] URINALYSISOrdered By: Lisette Medina on 12-20-2022 Bilirubin Ql (U) Negative (12/20/22 5:18 PM) Normal Negative [facility] UA Auto SS Clarity (U) Clear (12/20/22 5:18 PM) Normal Clear [facility] UA Auto SS Color (U) Straw *ABN* (12/20/22 5:18 PM) Invalid Interpretation Code Yellow [facility] UA Auto SS Epithelial cells.squamous LM.HPF (Urine sed) [#/Area] 0-2 /HPF Normal 0-2/HPF [facility] UA Auto SS Glucose Test strip (U) [Mass/Vol] Negative (12/20/22 5:18 PM) Normal Negative [facility] UA Auto SS Hemoglobin Ql (U) Trace *ABN* (12/20/22 5:18 PM) Invalid Interpretation Code Negative [facility] UA Auto SS Ketones (U) [Mass/Vol] Negative (12/20/22 5:18 PM) Normal Negative [facility] UA Auto SS [place].plasma/[place]. RBC (Bld) [Mass ratio] 0-3 /HPF Normal 0-3/HPF [facility] UA Auto SS Nitrite Ql (U) Negative (12/20/22 5:18 PM) Normal Negative [facility] UA Auto SS pH (U) 5.5 *NA* (12/20/22 5:18 PM) Invalid Interpretation Code 5.0 - 9.0 [facility] UA Auto SS Protein (U) [Mass/Vol] Negative (12/20/22 5:18 PM) Normal Negative [facility] UA Auto SS Specific gravity (U) [Rel density] <=1.005 *NA* (12/20/22 5:18 PM) Invalid Interpretation Code 1.005 - 1.030 [facility] UA Auto SS UA Spec Desc Clean Catch (12/20/22 5:18 PM) Normal [facility] UA Auto SS Urobilinogen Qn (U) 0.4919127 {Tj'U}/dL Normal 0.0 - 1.0 EU/dL [facility] UA Auto SS WBC Auto Ql (U) 1+ *ABN* (12/20/22 5:18 PM) Invalid Interpretation Code Negative [facility] UA Auto SS WBC LM.HPF (Urine sed) [#/Area] 6-15 /HPF Invalid Interpretation Code 0-5/HPF [facility] UA Auto SS XR Chest Single Viewon 12-20 XR Chest Single View Normal [facility] XR Chest Single View Normal [facility] eGFRon 12-20-2022 GFR/1.73 sq M.predicted among non-blacks MDRD (S/P/Bld) [Vol rate/Area] 43 mL/min/1.73 m2 Low >=59 [facility] Comment on above: Order Comment: Order added by Discern Expert. Result Comment: Shoes Hand Sewer aubrey kidney disease could be indicated at eGFR's of less than 60 mL/min/1.73m2. Kidney failure is indicated at less than 15 mL/min/1.73m2. Performed By: #### 2 090328, 50342996, 0410123, 66189068, 0967915, 1185995 ####[facility] [address] [place] [address] Auto Diffon 12-19-2022 Basophils/100 WBC (Bld) 0.4 % Normal 0.0-2.0 [facility] Comment on above: Order Comment: Order Added by Discern Expert. Performed By: #### 2 266664, 61628507, 88716057, 1612593, 4631471, 03469257, 8131769, 5607745 ####[facility] [address] [place] [address] Basophils/Leukocytes Auto (Bld) [Pure # fraction] 0.0 E9/L Normal 0.0-0.2 [facility] Comment on above: Order Comment: Order Added by Discern Expert. Performed By: #### 2 286234, [id number], [id number], [id number], [id number], [id number], [id number], [id number] ####[facility] [id number] [place] [address] Eosinophils/100 WBC (Bld) 1.6 % Normal 0.0-8.0 [facility] Comment on above: Order Comment: Order Added by Discern Expert. Performed By: #### 2 [id number], [id number], [id number], [id number], 0692298, [id number], 7893710, [id number] ####[facility] [address] [place] [address] Eosinophils/Leukocytes Auto (Bld) [Pure # fraction] 0.1 E9/L Normal 0.0-0.5 [facility] Comment on above: Order Comment: Order Added by Discern Expert. Performed By: #### 2 [id number], [id number], [id number], 0712329, 2415760, 49790105, 6021625, 5747084 ####[address] [place] [address] Lymphocytes/100 WBC (Bld) 34.4 % Normal 14.0-50.0 [facility] Comment on above: Order Comment: Order Added by Discern Expert. Performed By: #### 2 670665, 92645248, 93568693, 1811232, 5545983, 51968905, 5081800, 5053993 ####[address] [place] [address] Lymphocytes/Leukocytes Auto (Bld) [Pure # fraction] 1.2 E9/L Normal 1.0-4.0 [facility] Comment on above: Order Comment: Order Added by Discern Expert. Performed By: #### 2 239131, 10414125, 16123579, 5440519, 5664294, 10151185, 2765895, 7471377 ####[address] [address] Monocytes/100 WBC (Bld) 12.8 % Normal 4.0-14.0 [facility] Comment on above: Order Comment: Order Added by Discern Expert. Performed By: #### 2 397553, 65639116, 05694246, 9867187, 7276413, 22267082, 4839150, 3948414 ####[address] [address] Monocytes/Leukocytes Auto (Bld) [Pure # fraction] 0.4 E9/L Normal 0.2-1.0 [facility] Comment on above: Order Comment: Order Added by Discern Expert. Performed By: #### 2 571714, 02578394, 62292665, 3789864, 8673947, 07387741, 9683103, 5843005 ####[address] [address] Neutrophils/100 WBC (Bld) 50.8 % Normal 36.0-75.0 [facility] Comment on above: Order Comment: Order Added by Discern Expert. Performed By: #### 2 860198, 99917417, 26581619, 5003012, 6372554, 14021944, 3570714, 8044959 ####[facility] [address] [place] [address] Neutrophils/Leukocytes Auto (Bld) [Pure # fraction] 1.7 E9/L Low 2.0-7.5 [facility] Comment on above: Order Comment: Order Added by Discern Expert. Performed By: #### 2 541339, 85892837, 85396758, 7323811, 3239234, 54021055, 2417259, 3002001 ####[facility] [address] [place] [address] BMPon 12-19-2022 Anion gap [Moles/Vol] 10 mmol/L Normal 6-16 [facility] Comment on above: Performed By: #### 2 623972, 83765199, 28098573, 5514430, 1179287, 97674034, 0455413, 7838269 ####[facility] [address] [place] [address] Calcium [Mass/Vol] 9.4 mg/dL Normal 8.9-11.1 [facility] Comment on above: Performed By: #### 2 830057, 45094269, 12066879, 4764224, 1323435, 34335695, 2309866, 3357495 ####[facility] [address] [place] [address] Chloride [Moles/Vol] 111 mmol/L Normal 101-111 [facility] Comment on above: Performed By: #### 2 019248, 07023890, 47444596, 7644550, 2889949, 81400818, 8971080, 6212196 ####[facility] [address] [place] [address] CO2 [Moles/Vol] 25 mmol/L Normal 21-31 [facility] Comment on above: Performed By: #### 2 487169, 35895188, 88178331, 3786753, 4372060, 33529126, 9889192, 9326178 ####[facility] [address] [place] [address] Creatinine [Mass/Vol] 1.4 mg/dL High 0.5-1.3 [facility] Comment on above: Performed By: #### 2 204335, 44033201, 88800903, 5763430, 0480558, 97391550, 1900109, 5614147 ####[facility] [address] [place] [address] Glucose [Mass/Vol] 165 mg/dL Normal 55-199 [facility] Comment on above: Result Comment: If t his glucose result represents a fasting glucose, interpretation should refer to the following reference range: 55-99 mg/dL Performed By: #### 2 201124, 40057608, 30028199, 4955071, 5623063, 88231958, 7026108, 8479252 ####[facility] [address] [place] [address] Potassium [Moles/Vol] 4.6 mmol/L Normal 3.5-5.3 [facility] Comment on above: Performed By: #### 2 882093, 42054910, 22230174, 9094557, 5541877, 28265035, 0155280, 3140513 ####[facility] [address] [place] [address] Sodium [Moles/Vol] 141 mmol/L Normal 135-145 [facility] Comment on above: Performed By: #### 2 161008, 49681396, 56228182, 1101785, 8332682, 47134406, 2290621, 5943119 ####[facility] [address] [place] [address] Urea nitrogen [Mass/Vol] 36 mg/dL High 5-21 [facility] Comment on above: Performed By: #### 2 026969, 27154774, 33362008, 2940115, 1561780, 04504761, 4482628, 1774724 ####[facility] [address] [place] [address] Urea nitrogen/Creatinine [Mass ratio] 26 No Units High 10-20 [facility] Comment on above: Performed By: #### 2 740856, 12303311, 83095541, 4245916, 6029477, 75065244, 2626911, 7735628 ####[facility] [address] [place] [address] CBC w/ Auto Diffon 3 Erythrocyte distribution width (RBC) [Ratio] 18.9 % High 10.9-14.2 [facility] Comment on above: Performed By: #### 2 344223, 70212829, 26609919, 0111773, 3430602, 72170469, 9944658, 5651618 ####[address] [place] [address] Hematocrit (Bld) [Volume fraction] 32.2 % Low 34.0-46.0 [facility] Comment on above: Performed By: #### 2 738233, 83378628, 60099304, 8166082, 8217450, 98802103, 8039651, 9140830 ####[facility] [address] [place] [address] Hemoglobin (Bld) [Mass/Vol] 10.8 g/dL Low 12.0-16.0 [facility] Comment on above: Performed By: #### 2 943301, 34213621, 65548477, 0032296, 3304737, 40029586, 4299280, 1768604 ####[facility] [address] [place] [address] MCH (RBC) [Entitic mass] 33.5 pg Normal 27.0-34.0 [facility] Comment on above: Performed By: #### 2 547539, 35367472, 28506883, 5247464, 4302803, 02974440, 1013754, 9271262 ####[facility] [address] [place] [address] MCHC (RBC) [Mass/Vol] 33.4 g/dL Normal 31.4-36.0 [facility] Comment on above: Performed By: #### 2 157290, 30444101, 69135181, 4772303, 6098654, 75994810, 6412449, 5152795 ####[facility] [address] [place] [address] MCV (RBC) [Entitic vol] 100.5 fL High 80.0-100.0 [facility] Comment on above: Performed By: #### 2 349183, 94621768, 32035653, 6457325, 5906398, 86504755, 7069152, 4803652 ####[facility] [address] [place] Platelet mean volume (Bld) [Entitic vol] 7.0 fL Normal 6.4-10.8 [facility] Comment on above: Performed By: #### 2 563421, 96661523, 79393732, 4544104, 4430336, 68785429, 8900877, 0254031 ####[facility] [address] [place] [address] Platelets (Bld) [#/Vol] 204.0 E9/L Normal 150. 0-500. 0 [facility] Comment on above: Performed By: #### 2 266578, 18452394, 08945856, 0522306, 7690781, 19804432, 7211782, 9909449 ####[facility] [address] [place] [address] RBC (Bld) [#/Vol] 3.2 E12/L Low 4.3-5.9 [facility] Comment on above: Performed By: #### 2 519164, 66278352, 47308315, 1495549, 5852727, 89066095, 8921212, 9807305 ####[facility] [address] [place] [address] WBC corrected for nucl RBC Auto (Bld) [#/Vol] 3.4 E9/L Low 4.0-11.0 [facility] Comment on above: Performed By: #### 2 151229, 79276885, 76067676, 3543182, 6625200, 19613150, 8796228, 5137755 ####[facility] [address] [place] [address] CHEMISTRYOrdered By: SYSTEM SYSTEM on 12-19-2022 Albumin [...] 4.0 - 11.0 E9/L [facility] HemeAutoSS Hep Func Panelon 12-19-2022 Albumin [Mass/Vol] 3.5 g/dL Normal 3.3-5.0 [facility] Comment on above: Performed By: #### 2 997523, 93609569, 97153137, 1085047, 1762488, 54331073, 4193045, 6561803 ####[facility] [address] [place] [address] Albumin/Globulin (S) [Mass conc ratio] 1.0 Low 1.1-2.2 [facility] Comment on above: Performed By: #### 2 821881, 07182030, 25888813, 9152888, 7538862, 91717733, 9810828, 2758339 ####[facility] [address] [place] [address] ALP [Catalytic activity/Vol] 110 Int._Unit/L High 21-98 [facility] Comment on above: Performed By: #### 2 318878, 81585627, 26759354, 7595597, 2056588, 15817438, 8792868, 9248523 ####[facility] [address] [place] [address] ALT No additional P-5'-P [Catalytic activity/Vol] 20 Int._Unit/L Normal 6-46 [facility] Comment on above: Performed By: #### 2 996423, 81306579, 31520515, 5726873, 6888371, 63667442, 6278410, 8803341 ####[facility] [address] [place] [address] AST [Catalytic activity/Vol] 19 Int._Unit/L Normal 5-43 [facility] Comment on above: Performed By: #### 2 386392, 69643995, 23788194, 6717688, 0701452, 41752780, 1420916, 7670866 ####[facility] [address] [place] [address] Bilirubin [Mass/Vol] 0.4 mg/dL Normal 0.0-1.1 [facility] Comment on above: Performed By: #### 2 346787, 19411439, 49114153, 7668060, 5891483, 34083493, 3451698, 0418002 ####[facility] [address] [place] [address] Bilirubin.direct [Mass/Vol] 0.1 mg/dL Normal 0.1-0.4 [facility] Comment on above: Performed By: #### 2 168074, 45988353, 88136449, 5009327, 9207635, 08694949, 2103792, 6242159 ####[facility] [address] [place] [address] Bilirubin.indirect [Mass or moles/Vol] 0.3 mg/dL Normal 0.1-0.9 [facility] Comment on above: Performed By: #### 2 380384, 37288229, 75513615, 0788904, 2991539, 01444036, 6118512, 5967601 ####[facility] [address] [place] [address] Globulin (S) [Mass/Vol] 3.5 g/dL Normal 1.4-4.0 [facility] Comment on above: Performed By: #### 2 201178, 06218480, 26731030, 9495395, 9347930, 97748030, 2188880, 0730476 ####[facility] [address] [place] [address] Protein [Mass/Vol] 7.0 g/dL Normal 6.0-7.8 [facility] Comment on above: Performed By: #### 2 007489, 63649768, 10346678, 0357982, 8663008, 30659270, 5972483, 5434002 ####[facility] [address] [place] [address] Laboratory - Microbiology an d Antimicrobial susceptibilityOrdered By: Jeaneth Morfin on 12-19-2022 Bacteria identified Cx Nom (U) >100,000 cfu/ml Gram Negative [employer] Specialist species [facility] Magnesiumon 12-19-2022 Magnesium [Mass/Vol] 2.0 mg/dL Normal 1.3-2.4 [facility] Comment on above: Performed By: #### 2 889657, 09091325, 18574156, 9224497, 8894439, 59087832, 5895078, 8782688 ####[facility] [address] [place] [address] PT & PTTon 12-19-2022 aPTT Coag (PPP) [Time] 26.7 second(s) Normal 25.1-36.5 [facility] Comment on above: Result Comment: Para meter [...] reagent and instrumentation as [facility]. Currently there are no coagulation studies available worldwide for children to 14 days, and no normal ranges. Heparin therapeutic range (represented by Anti-Factor Xa activity of 0.2 - 0.4 U/mL) corresponds to PTT of 56.6 - 109.0 sec. Performed By: #### 2 477697, 96584752, 92621848, 6829726, 8353105, 17663805, 9388738, 6186979 ####[facility] [address] [place] [address] INR Coag (PPP) [Relative time] 1.0 {INR} Invalid Interpretation Code [facility] Comment on above: Result Comment: INR results are specifically intended to assess patients stabilized on long-term Anticoagulation therapy suggested INR?s ?Less Intensive Anticoagulation? 2.0 ? 3.0Conventional Range 3.0 ? 4.5 Performed By: #### 2 435233, 67702400, 34868320, 9479482, 9370409, 55367802, 0560462, 4873988 ####[facility] [address] [place] [address] PT Coag (PPP) [Time] 11.5 second(s) Normal 9.4-12.5 [facility] Comment on above: Result Comment: 15 d [...] ranges were obtained from a study by ra Roberto al. prepared from 1437 samples obtained at 7 different centers using the same coagulation reagent and instrumentation as [facility]. Currently there are no coagulation studies available worldwide for children to 14 days, and no normal ranges. Performed By: #### 2 118566, 53622132, 63662882, 0699687, 2552601, 33776793, 3016099, 3277557 ####[facility] [address] [place] [address] Pre-Arrival Noteon 3 Pre-Arrival Note Normal [facility] Troponin 0 Hr.on 12-19-2022 Troponin I.cardiac [Mass/Vol] 9.40 pg/mL Low 10.10-27.[address] [facility] Comment on above: Result Comment: The 95% CI (Confidence Interval) PPV (Positive Predictive Value) for myocardial infarction in females is 38 pg/mL, in males 51 pg/mL. The results should be used in conjunction with clinical conditions of myocardial infarction.(Access High Sensitivity Troponin I Instructions For Use, Gaby Moccasin, November 2017) Performed By: #### 2 884231, 41822840, 97917927, 9904334, 2582351, 27292445, 2735192, 1964885 ####[facility] [address] [place] [address] URINALYSISOrdered By: Evert Cordoba on 12-19-2022 Bacteria [...] PM) Normal Negative [facility] UA Auto SS [place].plasma/[place]. RBC (Bld) [Mass ratio] 0-3 /HPF Normal [...] Comment: Mini cath specimen Urobilinogen Qn (U) 0.3714251 {Tj'U}/dL Normal 0.0 - 1.0 EU/dL [facility] UA Auto SS WBC Auto Ql (U) Trace *ABN* (12/19/22 10:25 PM) Invalid Interpretation Code Negative [facility] UA Auto SS WBC LM.HPF (Urine sed) [#/Area] 0-5 /HPF Normal 0-5/HPF [facility] UA Auto SS eGFRon 12-19-2022 GFR/1.73 sq M.predicted among non-blacks MDRD (S/P/Bld) [Vol rate/Area] 40 mL/min/1.73 m2 Low >=59 [facility] Comment on above: Order Comment: Order added by Discern Expert. Result Comment: [employer] aubrey kidney disease could be indicated at eGFR's of less than 60 mL/min/1.73m2. Kidney failure is indicated at less than 15 mL/min/1.73m2. Performed By: #### 2 677144, 19624891, 21494072, 9513344, 3524852, 90970893, 2528151, 8378181 ####[facility] [address] [place] [address] CT Spine Lumbar w/o Contrast on 12-17-2022 CT Spine Lumbar w/o Contrast Normal [facility] Consent for Treatmenton 11-21 Consent for Treatment [id number]#1.00CD:[address] [facility] Discharge Instructionson Discharge Instructions [id number]#1.00CD:[address] [facility] ED Clinical Summaryon 2022 ED Clinical Summary Normal [facility] ED Note-Physicianon 12-18-19 ED Note-Physician Normal [facility] Comment on above: Result Comment: Elec tronically Signed By: Gui Scruggs PA-C\.br\Date and Time Signed: 12/17/22 13:40 EDT\.br\Electronically Co-Signed By: Jeffery Murphy DO\.br\Date and Time Co-Signed: 12/17/22 18:34 EDT ED Patient Education Noteon 12-17-2022 ED Patient Education Note Normal [facility] ED Patient Summaryon 023 ED Patient Summary Normal [facility] Retirement Recordson 12-17 Retirement Records [id number]#1.00CD:[address] [facility] XR Hip 2-3 Views Right + Pel vison 12-17-2022 XR Hip 2-3 Views Right + Pelvis Normal [facility] XR Spine Lumbosacral 2 or 3 Viewson 12-17-2022 XR Spine Lumbosacral 2 or [address] [facility] Family Medicine Office/Clini c Noteon 12-14-2022 Family Medicine Office/Clinic Note Normal [facility] Comment on above: Result Comment: Elec tronically Signed By: Sammy QUEZADA MD\.br\Date and Time Signed: 12/14/22 16:36 EDT ONC - Otheron 12-12-2022 ONC - Other [id number]#1.00CD:[address] [facility] ONC - Otheron 12-04-2022 ONC - Other [id number]#1.00CD:[address] [facility] ONC - Otheron 11-21-2022 ONC - Other [id number]#1.00CD:[address] [facility] XR Pelvis 1 or 2 Viewson XR Pelvis 1 or 2 Views Normal [facility] RAD - MISCon 11-20-2022 RAD - MISC [id number]#1.00CD:[address] [facility] Family Medicine Office/Clini c Noteon 11-07-2022 [facility] Medicine Office/Clinic Note Normal [facility] Comment on above: Result Comment: Elec tronically Signed By: Sammy QUEZADA MD\.br\Date and Time Signed: 11/06/22 22:21 EDT Consultation Noteon 11-07-19 Consultation Note [facility] Comment on above: Result Comment: Elec tronically Signed By: Gavino Erickson DO\.br\Date and Time Signed: 11/06/22 07:17 EDT Discharge Documentationon Discharge Documentation [id number]#1.00CD:[address] [facility] Message from Medicareon 10-20 Message from Medicare [id number]#1.00CD:1 27 [facility] Transfer Documentson 023 Transfer Documents [id number]#1.00CD:1 27 [facility] Insurance Correspondence Off iceon 11-05-2022 Insurance Correspondence Office [id number]#1.00CD:12 7 [facility] Inpatient Clinical Summaryon 11-04-2022 Inpatient Clinical Summary [facility] Inpatient Patient Summaryon 11-04-2022 Inpatient Patient Summary [facility] Inpatient Patient Summary [facility] 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 Note - Attila e Manageron 11-04-2022 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 Note - Mission Manager [facility] Comment on above: Result Comment: Elec tronically Signed By: Florence Ortega\.br\Date and Time Signed: 11/04/22 13:07 EDT CHEMISTRYOrdered By: SYSTEM SYSTEM on 11-03-2022 25-hydroxyvitamin D3 [Mass/Vol] ng/mL Low 30.0 - 100.0 ng/mL [facility] Remisol 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 Note - Attila e Manageron 11-03-2022 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 Note - Mission Manager [facility] Comment on above: Result Comment: Elec tronically Signed By: Florence Ortega\.br\Date and Time Signed: 11/03/22 10:38 EDT Progress Note-Physicianon Progress Note-Physician [facility] Comment on above: Result Comment: Elec tronically Signed By: Trevor HANKS, Wyatt\.br\Date and Time Signed: 11/03/22 08:08 EDT RPR with Conf Rfxon 11-04-19 Reagin Ab RPR Ql (S) Non-Reactive Invalid Interpretation Code Non Reactive [facility] Comment on above: Result Comment: Perf ormed at: [facility] [address] [place], [place] [id number] PhD [place] Avelar Performed By: #### 2 648954, 4689671, 758608615, 72493617 ####[facility] [address] [place] [address] Vitamin D 25 Hydroxyon 11-03 25-hydroxyvitamin D3 [Mass/Vol] ng/mL Low 30.0-100.0 [facility] Comment on above: Result Comment: Vit beltran D deficiency has been defined as a level of serum 25-OH vitamin D less than 20 ng/mL (1,2) by the Babb of Medicine and an Endocrine Society practice guideline. The Endocrine Society further defined vitamin D insufficiency as a level between 21 and 29 ng/mL (2). 1. IOM (Babb of Medicine). 2010. Dietary reference intakes for calcium and D. [place]: The National Academies Press. 2. Katlin MF, [place], Jarad DUKE, et al. Evaluation, treatment, and prevention of vitamin D deficiency: an Endocrine Society clinical practice guideline. JCEM. 2010; 96 (7):1911-30. Performed By: #### 5 [id number] ####[facility] [address] [place] [address] Auto Diffon 11-02-2022 Basophils/100 WBC (Bld) 1.2 % Normal 0.0-2.0 [facility] Comment on above: Order Comment: Order Added by Discern Expert. Performed By: #### 2 926653, 4135986, 5879479, 1013514, 20470090, 06336236 ####[facility] [address] [place] [address] Basophils/Leukocytes Auto (Bld) [Pure # fraction] 0.1 E9/L Normal 0.0-0.2 [facility] Comment on above: Order Comment: Order Added by Discern Expert. Performed By: #### 2 778159, 6899857, 0418995, 4389749, 49284359, 15677781 ####[address] [place] [address] Eosinophils/100 WBC (Bld) 3.3 % Normal 0.0-8.0 [facility] Comment on above: Order Comment: Order Added by Discern Expert. Performed By: #### 2 148925, 1475541, 4574684, 9580283, 33931352, 91588317 ####[address] [address] Eosinophils/Leukocytes Auto (Bld) [Pure # fraction] 0.2 E9/L Normal 0.0-0.5 [facility] Comment on above: Order Comment: Order Added by Faviola Expert. Performed By: #### 2 021276, 8632214, 3208774, 7266994, 26749282, 12355838 ####[address] [address] Lymphocytes/100 WBC (Bld) 24.6 % Normal 14.0-50.0 [facility] Comment on above: Order Comment: Order Added by Faviola Expert. Performed By: #### 2 811998, 2966318, 3355339, 5683951, 92133846, 75695657 ####[address] [address] Lymphocytes/Leukocytes Auto (Bld) [Pure # fraction] 1.6 E9/L Normal 1.0-4.0 [facility] Comment on above: Order Comment: Order Added by Faviola Expert. Performed By: #### 2 735281, 6691643, 7427158, 7448278, 54542533, 28880069 ####[address] [place] [address] Monocytes/100 WBC (Bld) 5.0 % Normal 4.0-14.0 [facility] Comment on above: Order Comment: Order Added by Faviola Expert. Performed By: #### 2 763909, 6800186, 4909607, 7316699, 30795582, 57728446 ####[address] [place] [address] Monocytes/Leukocytes Auto (Bld) [Pure # fraction] 0.3 E9/L Normal 0.2-1.0 [facility] Comment on above: Order Comment: Order Added by Discern Expert. Performed By: #### 2 690328, 3075059, 5054075, 0440137, 66648860, 97509206 ####[address] [place] [address] Neutrophils/100 WBC (Bld) 65.9 % Normal 36.0-75.0 [facility] Comment on above: Order Comment: Order Added by Discern Expert. Performed By: #### 2 973891, 3812530, 0999932, 6089258, 30933614, 36727589 ####[address] [place] [address] Neutrophils/Leukocytes Auto (Bld) [Pure # fraction] 4.4 E9/L Normal 2.0-7.5 [facility] Comment on above: Order Comment: Order Added by Discern Expert. Performed By: #### 2 860964, 1055149, 1556026, 5566128, 89329964, 83653906 ####[address] [place] [address] BMPon 11-02-2022 Creatinine [Mass/Vol] 1.3 mg/dL Normal 0.5-1.3 [facility] Comment on above: Performed By: #### 2 935161, 9382398, 9181743, 9324972, 97866400, 00087016 ####[facility] [address] [place] [address] Urea nitrogen [Mass/Vol] 26 mg/dL High 5-21 [facility] Comment on above: Performed By: #### 2 713891, 7513068, 9001502, 8927956, 12321417, 25140551 ####[facility] [address] [place] [address] Urea nitrogen/Creatinine [Mass ratio] 20 No Units Normal 10-20 [facility] Comment on above: Performed By: #### 2 825752, 6083766, 3131781, 6018295, 28444797, 61859276 ####[facility] [address] [facility] [place] [address] Anion gap [Moles/Vol] 15 mmol/L Normal 6-16 [facility] Comment on above: Performed By: #### 2 919046, 1872532, 8589808, 8286910, 10586470, 39258205 ####[facility] [address] [place] [address] Calcium [Mass/Vol] 9.1 mg/dL Normal 8.9-11.1 [facility] Comment on above: Performed By: #### 2 530085, 3227084, 6552374, 4455722, 18201571, 68281224 ####[facility] [address] [place] [address] Chloride [Moles/Vol] 105 mmol/L Normal 101-111 [facility] Comment on above: Performed By: #### 2 220726, 7823179, 9435432, 1530960, 42055464, 28359529 ####[facility] [address] [place] [address] CO2 [Moles/Vol] 22 mmol/L Normal 21-31 [facility] Comment on above: Performed By: #### 2 092946, 0773447, 0995744, 0696537, 58622994, 47326682 ####[facility] [address] [facility] [address] Glucose [Mass/Vol] 130 mg/dL Normal 55-199 [facility] Comment on above: Result Comment: If t his glucose result represents a fasting glucose, interpretation should refer to the following reference range: 55-99 mg/dL Performed By: #### 2 773979, [id number], [id number], 1020859, [id number], [id number] ####[facility] [address] [place] [address] Potassium [Moles/Vol] 4.2 mmol/L Normal 3.5-5.3 [facility] Comment on above: Performed By: #### 2 [id number], 9195572, 6020140, 8283861, [id number], [id number] ####[facility] [address] [place] [address] Sodium [Moles/Vol] 138 mmol/L Normal 135-145 [facility] Comment on above: Performed By: #### 2 [id number], [id number], 7524903, 8103060, [id number], [id number] ####[facility] [address] [place] [address] CBC w/ Auto Diffon Erythrocyte distribution width (RBC) [Ratio] 16.3 % High 10.9-14.2 [facility] Comment on above: Performed By: #### 2 [id number], 0507444, 0706749, 2583752, [id number], [id number] ####[address] [place] [address] Hematocrit (Bld) [Volume fraction] 36.5 % Normal 34.0-46.0 [facility] Comment on above: Performed By: #### 2 653341, 5772179, 4777496, 6518464, 72617182, 11275899 ####[facility] [address] [place] [address] Hemoglobin (Bld) [Mass/Vol] 12.1 g/dL Normal 12.0-16.0 [facility] Comment on above: Performed By: #### 2 873135, 3909684, 3798940, 9543546, 98896452, 19232215 ####[facility] [address] [place] [address] MCH (RBC) [Entitic mass] 32.9 pg Normal 27.0-34.0 [facility] Comment on above: Performed By: #### 2 070440, 3523017, 7297689, 4402738, 09552455, 11366390 ####[facility] [address] [place] [address] MCHC (RBC) [Mass/Vol] 33.1 g/dL Normal 31.4-36.0 [facility] Comment on above: Performed By: #### 2 921519, 9326816, 3897714, 8950625, 13368906, 16844425 ####[facility] [address] [place] [address] MCV (RBC) [Entitic vol] 99.3 fL Normal 80.0-100.0 [facility] Comment on above: Performed By: #### 2 559858, 7936270, 3660599, 9926795, 39676037, 52647071 ####[place] [address] Platelet mean volume (Bld) [Entitic vol] 7.3 fL Normal 6.4-10.8 [facility] Comment on above: Performed By: #### 2 266220, 7202438, 3613917, 7567809, 43371990, 74592103 ####[address] [address] Platelets (Bld) [#/Vol] 229.0 E9/L Normal 150. 0-500. 0 [facility] Comment on above: Performed By: #### 2 732861, 6010447, 8438155, 7204640, 78966934, 80257979 ####[facility] [address] [place] [address] RBC (Bld) [#/Vol] 3.7 E12/L Low 4.3-5.9 [facility] Comment on above: Performed By: #### 2 043032, 5097597, 8885912, 5948690, 57416402, 61565281 ####[facility] [address] [place] [address] WBC corrected for nucl RBC Auto (Bld) [#/Vol] 6.6 E9/L Normal 4.0-11.0 [facility] Comment on above: Performed By: #### 2 707947, 7429041, 1767340, 7512954, 18622535, 92543051 ####[facility] [address] [place] [address] CT Pelvis w/o Contraston CT Pelvis w/o Contrast Normal Lucila hyman [facility] ED Clinical Summaryon 2022 ED Clinical Summary Normal Debbie caballero [facility] ED Note-Physicianon 11-03-19 ED Note-Physician Radiologist has read the x-ray of the sacrum and there is discrepancy. He is reading he has a left pubic rami fracture. The patient has been admitted to the hospital.The hospitalist notified. Normal [facility] Comment on above: Result Comment: Elec tronically Signed By: Alok Cai M.D.\.br\Date and Time Signed: 11/02/22 07:41 EDT ED Note-Physician Normal [facility] Comment on above: Result Comment: Elec tronically Signed By: Kelly Meredith DO\.br\Date and Time Signed: 11/02/22 00:27 EDT ED Patient Education Noteon 11-02-2022 ED Patient Education Note Normal [facility] ED Patient Summaryon 023 ED Patient Summary Normal [facility] ED Traumaon 11-02-2022 ED Trauma [id number]#[id number]:[address] [facility] FolateOrdered By: SYSTEM SYS TEM on 11-02-2022 Folate [Mass/Vol] 11.4 ng/mL Normal >=6.7 [facility] Comment on above: Performed By: #### 2 099077, 2541085, 769106635, 39296074 ####[facility] [address] [place] [address] Hep Func Panelon 11-02-2022 Albumin [Mass/Vol] 3.5 g/dL Normal 3.3-5.0 [facility] Comment on above: Performed By: #### 2 257250, 6864162, 1818250, 0028198, 36623081, 79005695 ####[facility] [address] [place] [address] Albumin/Globulin (S) [Mass conc ratio] 1.0 Low 1.1-2.2 [facility] Comment on above: Performed By: #### 2 867311, 8282498, 8627149, 4456921, 64750543, 86312157 ####[place] [address] [place] [address] ALP [Catalytic activity/Vol] 110 Int._Unit/L High 21-98 [facility] Comment on above: Performed By: #### 2 913297, 4736246, 3048160, 8359430, 87904168, 00208979 ####[place] [address] [place] [address] ALT No additional P-5'-P [Catalytic activity/Vol] 13 Int._Unit/L Normal 6-46 [facility] Comment on above: Performed By: #### 2 246572, 5028559, 9972844, 5364915, 90833728, 01164829 ####[place] [address] [place] [address] AST [Catalytic activity/Vol] 20 Int._Unit/L Normal 5-43 [facility] Comment on above: Performed By: #### 2 896639, 9185293, 2718627, 9927049, 90451498, 45643820 ####[facility] [address] [place] [address] Bilirubin [Mass/Vol] 0.9 mg/dL Normal 0.0-1.1 [facility] Comment on above: Performed By: #### 2 310702, 4382995, 2565277, 3801859, 79159898, 61984205 ####[place] [address] [place] [address] Bilirubin.direct [Mass/Vol] 0.2 mg/dL Normal 0.1-0.4 [facility] Comment on above: Performed By: #### 2 243873, 3000614, 2741236, 5696637, 21849538, 92272432 ####[facility] [address] [place] [address] Bilirubin.indirect [Mass or moles/Vol] 0.7 mg/dL Normal 0.1-0.9 [facility] Comment on above: Performed By: #### 2 715591, 4657499, 7097085, 2106671, 12626419, 39079040 ####[facility] [address] [place] [address] Globulin (S) [Mass/Vol] 3.4 g/dL Normal 1.4-4.0 [facility] Comment on above: Performed By: #### 2 611245, 0371222, 8971657, 7128141, 74579749, 36215948 ####[facility] [address] [place] [address] Protein [Mass/Vol] 6.9 g/dL Normal 6.0-7.8 [facility] Comment on above: Performed By: #### 2 381060, 5586988, 3085992, 2116590, 89128159, 58795146 ####[facility] [address] [place] [address] Insurance Correspondence Off ice11-02-2022 Insurance Correspondence Office [id number]#1.00CD:[address] [facility] 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 Note - Attila e Manageron 11-02-2022 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 Note - Mission Manager Normal [facility] Comment on above: Result Comment: Elec tronically Signed By: Florence Ortega\.br\Date and Time Signed: 11/02/22 14:23 EDT 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 Note - Rafat n 11-02-2022 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 Note - OT Normal [facility] 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 Note - Soc ial Workeron 11-02-2022 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 Note - Harpooner Normal [facility] Monitor Recordon 11-02-2022 Monitor Record [id number]#1.00CD:[address] [facility] Progress Note-Physicianon Progress Note-Physician Normal [facility] Comment on above: Result Comment: Elec tronically Signed By: Gavino Erickson DO\.br\Date and Time Signed: 11/02/22 15:25 EDT Progress Note-Physician Normal [facility] Comment on above: Result Comment: Elec tronically Signed By: Trevor HANKS, Wyatt\.br\Date and Time Signed: 11/02/22 12:22 EDT Reference Laboratory Testing Ordered By: Generated DomainUser on 11-02-2022 Reagin Ab RPR Ql (S) Non-Reactive Invalid Interpretation Code Non Reactive [facility]Out[facility] Comment on above: Result Comment: Perf ormed at: [facility] [address] [id number] PhD [place] Avelar TSH With T4fr ReflexOrdered By: SYSTEM SYSTEM on 11-02-2022 TSH Qn 0.93 m[IU]/L Normal 0.34-5.60 [facility] Comment on above: Performed By: #### 2 709840, 7689291, 281061435, 38327971 ####[facility] [address] [place] [address] Troponin 0 Hr.on 11-02-2022 Troponin I.cardiac [Mass/Vol] 7.50 pg/mL Low 10.10-27.[address] [facility] Comment on above: Result Comment: The 95% CI (Confidence Interval) PPV (Positive Predictive Value) for myocardial infarction in females is 38 pg/mL, in males 51 pg/mL. The results should be used in conjunction with clinical conditions of myocardial infarction.(Access High Sensitivity Troponin I Instructions For Use, Gaby Marisol, November 2017) Performed By: #### 2 404071, 5955375, 7287856, 4798593, 30346144, 18681753 ####[facility] [address] [place] [address] UA With Cult Reflexon 2022 Bacteria LM Ql (Urine sed) TRACE Normal Trace [facility] Comment on above: Order Comment: Urina ry Catheter Insertion triggered Urinalysis With Culture Reflex order by discern. Performed By: #### 1 9746285 ####[address] [address] Bilirubin Ql (U) Negative Normal Negative [facility] Comment on above: Order Comment: Urina ry Catheter Insertion triggered Urinalysis With Culture Reflex order by discern. Performed By: #### 1 0760402 ####[address] [address] Clarity (U) CLEAR Normal Clear [facility] Comment on above: Order Comment: Urina ry Catheter Insertion triggered Urinalysis With Culture Reflex order by discern. Performed By: #### 1 0848011 ####[address] [address] Color (U) YELLOW Normal Yellow [facility] Comment on above: Order Comment: Urina ry Catheter Insertion triggered Urinalysis With Culture Reflex order by discern. Performed By: #### 1 9744230 ####[address] [address] Epithelial cells.squamous LM.HPF (Urine sed) [#/Area] 3-4 Normal 0-2 [facility] Comment on above: Order Comment: Urina ry Catheter Insertion triggered Urinalysis With Culture Reflex order by discern. Performed By: #### 1 3024436 ####[address] [address] Glucose Test strip (U) [Mass/Vol] Negative Normal Negative [facility] Comment on above: Order Comment: Urina ry Catheter Insertion triggered Urinalysis With Culture Reflex order by discern. Performed By: #### 1 0821365 ####[address] [address] Hemoglobin Ql (U) TRACE Abnormal Negative [facility] Comment on above: Order Comment: Urina ry Catheter Insertion triggered Urinalysis With Culture Reflex order by discern. Performed By: #### 1 2814362 ####[address] [address] Ketones (U) [Mass/Vol] TRACE Abnormal Negative [facility] Comment on above: Order Comment: Urina ry Catheter Insertion triggered Urinalysis With Culture Reflex order by discern. Performed By: #### 1 8092828 ####[address] [address] [place].plasma/[place]. RBC (Bld) [Mass ratio] 4-20 Normal 0-3 [facility] Comment on above: Order Comment: Urina ry Catheter Insertion triggered Urinalysis With Culture Reflex order by discern. Performed By: #### 1 7439321 ####[address] [address] Nitrite Ql (U) Negative Normal Negative [facility] Comment on above: Order Comment: Urina ry Catheter Insertion triggered Urinalysis With Culture Reflex order by discern. Performed By: #### 1 7513825 ####[address] [address] pH (U) 6.0 [pH] Invalid Interpretation Code 5.0-9.0 [facility] Comment on above: Order Comment: Urina ry Catheter Insertion triggered Urinalysis With Culture Reflex order by discern. Performed By: #### 1 9215386 ####[address] [address] Protein (U) [Mass/Vol] TRACE Abnormal Negative [facility] Comment on above: Order Comment: Urina ry Catheter Insertion triggered Urinalysis With Culture Reflex order by discern. Performed By: #### 1 3693143 ####[address] [address] Specific gravity (U) [Rel density] 1.025 Invalid Interpretation Code 1.005-1.[address] [facility] Comment on above: Order Comment: Urina ry Catheter Insertion triggered Urinalysis With Culture Reflex order by discern. Performed By: #### 1 9820639 ####[address] [place] [address] Type of Urine collection method Catheter Normal [facility] Comment on above: Order Comment: Urina ry Catheter Insertion triggered Urinalysis With Culture Reflex order by discern. Performed By: #### 1 6551065 ####[address] [address] Urobilinogen Qn (U) 1.0 {Tj'U}/dL Normal 0.0-1.0 [facility] Comment on above: Order Comment: Urina ry Catheter Insertion triggered Urinalysis With Culture Reflex order by discern. Performed By: #### 1 4700303 ####[address] [address] WBC Auto Ql (U) Negative Normal Negative [facility] Comment on above: Order Comment: Urina ry Catheter Insertion triggered Urinalysis With Culture Reflex order by discern. Performed By: #### 1 7603291 ####[address] [address] WBC LM.HPF (Urine sed) [#/Area] 0-5 Normal 0-5 [facility] Comment on above: Order Comment: Urina ry Catheter Insertion triggered Urinalysis With Culture Reflex order by discern. Performed By: #### 1 5403029 ####[address] [address] Bilirubin Ql (U) Negative Normal Negative [facility] Comment on above: Performed By: #### 1 3404898 ####[address] [address] Clarity (U) SL CLOUDY Invalid Interpretation Code [facility] Comment on above: Performed By: #### 1 8723063 ####[address] [address] Color (U) YELLOW Normal Yellow [facility] Comment on above: Performed By: #### 1 4642788 ####[address] [address] Epithelial cells.squamous LM.HPF (Urine sed) [#/Area] 0-2 Normal 0-2 [facility] Comment on above: Performed By: #### 1 7122616 ####[facility] [address] [place] [address] Glucose Test strip (U) [Mass/Vol] Negative Normal Negative [facility] Comment on above: Performed By: #### 1 1935529 ####[facility] [address] [place] [address] Hemoglobin Ql (U) 3+ Abnormal Negative [facility] Comment on above: Performed By: #### 1 8524940 ####[facility] [address] [place] [address] Ketones (U) [Mass/Vol] TRACE Invalid Interpretation Code Negative [facility] Comment on above: Performed By: #### 1 0780812 ####[address] [address] [place].plasma/[place]. RBC (Bld) [Mass ratio] 21-30 Abnormal 0-3 [facility] Comment on above: Performed By: #### 1 5562058 ####[facility] [address] [place] [address] Mucus Ql (Urine sed) 1+ Normal [facility] Comment on above: Performed By: #### 1 5790100 ####[facility] [address] [place] [address] Nitrite Ql (U) Negative Normal Negative [facility] Comment on above: Performed By: #### 1 4753540 ####[facility] [address] [place] [address] pH (U) 6.0 [pH] Invalid Interpretation Code 5.0-9.0 [facility] Comment on above: Performed By: #### 1 5585520 ####[place] [address] [place] [address] Protein (U) [Mass/Vol] 1+ Abnormal Negative [facility] Comment on above: Performed By: #### 1 1841825 ####[address] [address] Specific gravity (U) [Rel density] 1.025 Invalid Interpretation Code 1.005-1.[address] [facility] Comment on above: Performed By: #### 1 4999283 ####[facility] [address] [place] [address] Type of Urine collection method Clean Catch Normal [facility] Comment on above: Performed By: #### 1 0065301 ####[address] [address] Urobilinogen Qn (U) 2.0 {Tj'U}/dL Abnormal 0.0-1.0 [facility] Comment on above: Performed By: #### 1 4601699 ####[facility] [address] [place], [place] [address] WBC Auto Ql (U) Negative Normal Negative [facility] Comment on above: Performed By: #### 1 2922864 ####[address] [address] WBC LM.HPF (Urine sed) [#/Area] 0-5 Normal 0-5 [facility] Comment on above: Performed By: #### 1 1592083 ####[facility] [address] [place], [place] [address] URINALYSISOrdered By: Dianne Villa on 11-02-2022 Bacteria LM Ql (Urine sed) Trace /HPF Normal Trace/HPF [facility] UA Auto SS Bilirubin Ql (U) Negative (11/02/22 5:30 PM) Normal Negative [facility] UA Auto SS Clarity (U) Clear (11/02/22 5:30 PM) Normal Clear [facility] UA Auto SS Color (U) Yellow (11/02/22 5:30 PM) Normal Yellow [facility] UA Auto SS Epithelial cells.squamous LM.HPF (Urine sed) [#/Area] 3-4 /HPF Normal 0-2/HPF [facility] UA Auto SS Glucose Test strip (U) [Mass/Vol] Negative (11/02/22 5:30 PM) Normal Negative [facility] UA Auto SS Hemoglobin Ql (U) Trace *ABN* (11/02/22 5:30 PM) Invalid Interpretation Code Negative [facility] UA Auto SS Ketones (U) [Mass/Vol] Trace *ABN* (11/02/22 5:30 PM) Invalid Interpretation Code Negative [facility] UA Auto SS [place].plasma/[place]. RBC (Bld) [Mass ratio] 4-20 /HPF Normal [...] [facility] UA Auto SS Urobilinogen Qn (U) 1.6097620 {Tj'U}/dL Normal 0.0 - 1.0 EU/dL [facility] UA Auto SS WBC Auto Ql (U) Negative (11/02/22 5:30 PM) Normal Negative [facility] UA Auto SS WBC LM.HPF (Urine sed) [#/Area] 0-5 /HPF Normal 0-5/HPF [facility] UA Auto SS Vit [id number] By: SYSTEM SY STEM on 11-02-2022 Cobalamin (Vitamin B12) [Mass/Vol] 470 pg/mL Normal 50-1500 [facility] Comment on above: Performed By: #### 2 441880, 4773592, 660332009, 82341041 ####[facility] [address] [place] [address] XR Chest Single Viewon 11-02 XR Chest Single View Normal Fish er [facility] XR Pelvis 1 or 2 Viewson XR Pelvis 1 or 2 Views Normal [facility] XR Sacrum and Coccyx Min 2 V iewson 11-02-2022 XR Sacrum and Coccyx Min [address] [facility] eGFRon 11-02-2022 GFR/1.73 sq M.predicted among non-blacks MDRD (S/P/Bld) [Vol rate/Area] 43 mL/min/1.73 m2 Low >=59 [facility] Comment on above: Order Comment: Order added by Discern Expert. Result Comment: Sh[employer] Hand Sewer aubrey kidney disease could be indicated at eGFR's of less than 60 mL/min/1.73m2. Kidney failure is indicated at less than 15 mL/min/1.73m2. Performed By: #### 2 089469, 5074283, 4901254, 7364680, 09659680, 36477150 ####[facility] [address] [place] [address] CHEMISTRYOrdered By: SYSTEM SYSTEM on 11-01-2022 Albumin [...] for Treatmenton 10-20 Consent for Treatment [id number]#1.00CD:[address] [facility] HEMATOLOGYOrdered By: SYSTEM SYSTEM on 11-01-2022 Basophils/100 [...] 7.3 fL Normal 6.4 - 10.8 fL FT HemeAutoSS Platelets (Bld) [#/Vol] 229.0 E9/L Normal 150. 0 - 500.0 E9/L [facility] HemeAutoSS RBC (Bld) [#/Vol] 3.7 E12/L Low 4.3 - 5.9 E12/L FT HemeAutoSS WBC corrected for nucl RBC Auto (Bld) [#/Vol] 6.6 E9/L Normal 4.0 - 11.0 E9/L FT HemeAutoSS URINALYSISOrdered By: Lisseth Valenzuela on 11-01-2022 [...] Interpretation Code Negative [facility] UA Auto SS [place].plasma/[place]. RBC (Bld) [Mass ratio] 21-30 /HPF Invalid [...] [facility] UA Auto SS Urobilinogen Qn (U) 2.4060474 {Tj'U}/dL Inv alid Interpretation Code 0.0 - 1.0 EU/dL [facility] UA Auto SS WBC Auto Ql (U) Negative (11/01/22 11:20 PM) Normal Negative [facility] UA Auto SS WBC LM.HPF (Urine sed) [#/Area] 0-5 /HPF Normal 0-5/HPF [facility] UA Auto SS ONC - Otheron 10-30-2022 ONC - Other [id number]#1.00CD:[address] [facility] 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 Note - Soc ial Workeron 10-05-2022 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 Note - Harpooner Normal [facility] Oncology Progress Noteon Oncology Progress Note Normal Fi [facility] Consent for Treatmenton Consent for Treatment [id number]#1.00CD:[address] [facility] CA 27 29on 09-26-2022 Cancer Ag 27-29 Qn 17.7 unit/mL Invalid Interpretation Code 0.0-38.6 [facility] Comment on above: Result Comment: [employer] [place] Immunochemiluminometric Methodology (ICMA)Values obtained with different assay methods or kits cannot be usedinterchangeably. Results cannot be interpreted as absolute evidenceof the presence or absence of malignant disease.Performed at: [facility] [id number] PhD [place] Avelar Performed By: #### 1 2038302, 6419777, 5963915, 24235488, 9755836 ####[facility] [address] [place] [address] Auto Diffon 09-25-2022 Basophils/100 WBC (Bld) 3.0 % High 0.0-2.0 [facility] Comment on above: Order Comment: Order Added by Discern Expert. Performed By: #### 1 2149443, 2796868, 9786574, 94606158, 1215571 ####[facility] [address] [place] [address] Basophils/Leukocytes Auto (Bld) [Pure # fraction] 0.1 E9/L Normal 0.0-0.2 [facility] Comment on above: Order Comment: Order Added by Discern Expert. Performed By: #### 1 4744066, 3234523, 8513898, 35511765, 1491753 ####[facility] [address] [place] [address] Eosinophils/100 WBC (Bld) 3.1 % Normal 0.0-8.0 [facility] Comment on above: Order Comment: Order Added by Discern Expert. Performed By: #### 1 6508666, 0846548, 5147008, 00167778, 2888053 ####[facility] [address] [place] [address] Eosinophils/Leukocytes Auto (Bld) [Pure # fraction] 0.1 E9/L Normal 0.0-0.5 [facility] Comment on above: Order Comment: Order Added by Discern Expert. Performed By: #### 1 6433218, 6979792, 7531191, 87033726, 3909882 ####[address] [address] Lymphocytes/100 WBC (Bld) 37.1 % Normal 14.0-50.0 [facility] Comment on above: Order Comment: Order Added by Faviola Expert. Performed By: #### 1 1826130, 7568473, 5306942, 94089719, 4989750 ####[address] [address] Lymphocytes/Leukocytes Auto (Bld) [Pure # fraction] 1.3 E9/L Normal 1.0-4.0 [facility] Comment on above: Order Comment: Order Added by Faviola Expert. Performed By: #### 1 9712825, 4861013, 2715850, 21768153, 7195151 ####[address] [address] Monocytes/100 WBC (Bld) 8.5 % Normal 4.0-14.0 [facility] Comment on above: Order Comment: Order Added by Faviola Expert. Performed By: #### 1 5322937, 7002682, 4565650, 88025189, 3977515 ####[place] [address] [place] [address] Monocytes/Leukocytes Auto (Bld) [Pure # fraction] 0.3 E9/L Normal 0.2-1.0 [facility] Comment on above: Order Comment: Order Added by Discern Expert. Performed By: #### 1 4047779, 0773069, 9616886, 15972788, 1020450 ####[place] [address] [place] [address] Neutrophils/100 WBC (Bld) 48.3 % Normal 36.0-75.0 [facility] Comment on above: Order Comment: Order Added by Discern Expert. Performed By: #### 1 1828752, 7423470, 1354387, 73976614, 4730330 ####[facility] [address] [place] [address] Neutrophils/Leukocytes Auto (Bld) [Pure # fraction] 1.7 E9/L Low 2.0-7.5 [facility] Comment on above: Order Comment: Order Added by Discern Expert. Performed By: #### 1 5258769, 4922264, 7781390, 51616997, 2972441 ####[address] [address] CBC w/ Auto Diffon 3 Erythrocyte distribution width (RBC) [Ratio] 16.6 % High 10.9-14.2 [facility] Comment on above: Performed By: #### 1 8410071, 4394568, 0980115, 66427041, 8819969 ####[address] [address] Hematocrit (Bld) [Volume fraction] 29.4 % Low 34.0-46.0 [facility] Comment on above: Performed By: #### 1 5742785, 2772244, 2322377, 15106833, 4534095 ####[place] [place] [address] Hemoglobin (Bld) [Mass/Vol] 10.0 g/dL Low 12.0-16.0 [facility] Comment on above: Performed By: #### 1 1570677, 4994368, 0269092, 00307785, 9324971 ####[address] [address] MCH (RBC) [Entitic mass] 34.5 pg High 27.0-34.0 [facility] Comment on above: Performed By: #### 1 5601983, 2911565, 7277604, 00305629, 7452540 ####[facility] [address] [place] [address] MCHC (RBC) [Mass/Vol] 34.0 g/dL Normal 31.4-36.0 [facility] Comment on above: Performed By: #### 1 7718388, 6322237, 6498305, 54914828, 5327283 ####[facility] [address] [place] [address] MCV (RBC) [Entitic vol] 101.5 fL High 80.0-100.0 [facility] Comment on above: Performed By: #### 1 9082757, 0139852, 3575587, 58909251, 4910494 ####[place] [address] Platelet mean volume (Bld) [Entitic vol] 8.0 fL Normal 6.4-10.8 [facility] Comment on above: Performed By: #### 1 5379192, 1074080, 5634534, 82539847, 5134398 ####[place] [address] Platelets (Bld) [#/Vol] 177.0 E9/L Normal 150. 0-500. 0 [facility] Comment on above: Performed By: #### 1 0045724, 4650178, 4192278, 10253533, 7647587 ####[place] [place] [address] RBC (Bld) [#/Vol] 2.9 E12/L Low 4.3-5.9 [facility] Comment on above: Performed By: #### 1 9719477, 8691797, 8206543, 88140791, 5110271 ####[place] [address] [place] [address] WBC corrected for nucl RBC Auto (Bld) [#/Vol] 3.4 E9/L Low 4.0-11.0 [facility] Comment on above: Performed By: #### 1 6897197, 1842527, 7032508, 92312971, 3517594 ####[facility] [address] [place] [address] CHEMISTRYOrdered By: SYSTEM SYSTEM on 09-25-2022 Albumin [...] 3.8 mmol/L Normal 3.5 - 5.3 mmol/L [facility] Protein [Mass/Vol] 7.1 g/dL Normal 6.0 - 7.8 gm/dL [facility] Sodium [Moles/Vol] 140 mmol/L Normal 135 - 145 mmol/L [facility] Urea nitrogen [Mass/Vol] 24 mg/dL High 5 - 21 mg/dL [facility] Remisol Urea nitrogen/Creatinine [Mass ratio] 22 mg/mg High 10 - 20 [facility] Remisol CMPon 09-25-2022 Albumin [Mass/Vol] 3.1 g/dL Low 3.3-5.0 [facility] Comment on above: Performed By: #### 1 6431824, 1855719, 4355972, 49659862, 0678109 ####[facility] [address] [place] [address] Albumin/Globulin (S) [Mass conc ratio] 0.8 Low 1.1-2.2 [facility] Comment on above: Performed By: #### 1 5567618, 5419398, 3959126, 90157171, 4222738 ####[facility] [address] [place] [address] ALP [Catalytic activity/Vol] 131 Int._Unit/L High 21-98 [facility] Comment on above: Performed By: #### 1 0365794, 3506347, 7885370, 66942963, 2170803 ####[facility] [address] [place] [address] ALT No additional P-5'-P [Catalytic activity/Vol] 13 Int._Unit/L Normal 6-46 [facility] Comment on above: Performed By: #### 1 1265664, 8099583, 1841149, 82463316, 8356278 ####[facility] [address] [place] [address] Anion gap [Moles/Vol] 5 mmol/L Low 6-16 [facility] Comment on above: Performed By: #### 1 7990648, 9373368, 3635082, 51164917, 6699870 ####[facility] [address] [place] [address] AST [Catalytic activity/Vol] 16 Int._Unit/L Normal 5-43 [facility] Comment on above: Performed By: #### 1 0115078, 6313104, 3583605, 69206979, 8884984 ####[facility] [address] [place] [address] Bilirubin [Mass/Vol] 0.5 mg/dL Normal 0.0-1.1 [facility] Comment on above: Performed By: #### 1 1208154, 6200664, 8312433, 54392489, 2656272 ####[facility] [address] [place] [address] Calcium [Mass/Vol] 8.9 mg/dL Normal 8.9-11.1 [facility] Comment on above: Performed By: #### 1 9404567, 5198261, 5035518, 56948240, 6354268 ####[facility] [address] [place] [address] Chloride [Moles/Vol] 114 mmol/L High 101-111 [facility] Comment on above: Performed By: #### 1 2196275, 0571299, 6978029, 30493779, 7580385 ####[facility] [address] [place] [address] CO2 [Moles/Vol] 25 mmol/L Normal 21-31 [facility] Comment on above: Performed By: #### 1 3337066, 3197090, 8777826, 27288934, 7807862 ####[facility] [address] [place] [address] Creatinine [Mass/Vol] 1.1 mg/dL Normal 0.5-1.3 [facility] Comment on above: Performed By: #### 1 2786298, 2090510, 0821474, 72494120, 7472428 ####[facility] [address] [place] [address] Globulin (S) [Mass/Vol] 4.0 g/dL Normal 1.4-4.0 [facility] Comment on above: Performed By: #### 1 0550359, 5090412, 3368342, 90329483, 7924426 ####[facility] [address] [place] [address] Glucose [Mass/Vol] 134 mg/dL Normal 55-199 [facility] Comment on above: Result Comment: If t his glucose result represents a fasting glucose, interpretation should refer to the following reference range: 55-99 mg/dL Performed By: #### 1 1762147, 2680621, 1643500, 13432763, 6014501 ####[facility] [address] [place] [address] Potassium [Moles/Vol] 3.8 mmol/L Normal 3.5-5.3 [facility] Comment on above: Performed By: #### 1 5194266, 2592388, 8526099, 03319718, 9524138 ####[facility] [address] [place] [address] Protein [Mass/Vol] 7.1 g/dL Normal 6.0-7.8 [facility] Comment on above: Performed By: #### 1 9953500, 3235814, 1098704, 73343802, 0395689 ####[facility] [address] [place] [address] Sodium [Moles/Vol] 140 mmol/L Normal 135-145 [facility] Comment on above: Performed By: #### 1 6362316, 9539514, 6246520, 80106375, 5716237 ####[facility] [address] [place] [address] Urea nitrogen [Mass/Vol] 24 mg/dL High 5-21 [facility] Comment on above: Performed By: #### 1 3675889, 7215662, 7770710, 14503371, 1738852 ####[facility] [address] [place] [address] Urea nitrogen/Creatinine [Mass ratio] 22 No Units High 10-20 [facility] Comment on above: Performed By: #### 1 8956072, 5227395, 8050661, 71517618, 5817724 ####[facility] [address] [place] [address] Consent for Treatmenton 060 Consent for Treatment [id number]#1.00CD:[address] [facility] HEMATOLOGYOrdered By: SYSTEM SYSTEM on 09-25-2022 Basophils/100 [...] ONC - Otheron 09-25-2022 ONC - Other [id number]#1.00CD: [address] [facility] eGFRon 09-25-2022 GFR/1.73 sq M.predicted among non-blacks MDRD (S/P/Bld) [Vol rate/Area] 53 mL/min/1.73 m2 Low >=59 [facility] Comment on above: Order Comment: Order added by Discern Expert. Result Comment: [employer] aubrey kidney disease could be indicated at eGFR's of less than 60 mL/min/1.73m2. Kidney failure is indicated at less than 15 mL/min/1.73m2. Performed By: #### 1 3044045, 6727804, 3207902, 24972001, 1147833 ####[facility] [address] [place] [address] Ferritinon 09-10-2022 Ferritin [Mass/Vol] 302 ng/mL Normal 11-307 [facility] Comment on above: Result Comment: NORM ALS MEN <30 YRS 16-132 ng/mL MEN >30 YRS 8-338 ng/mL WOMEN (PREMEN) 6-104 ng/mL WOMEN (POSTMEN) 12-210 ng/mL Performed By: #### 2 025409, 0971137, 7044947, 9947654, 8681796, 0652837, 2318850, 63532695, 0615229, 7115526, 33746060 ####[facility] [address] [place] [address] Folateon 09-10-2022 Folate [Mass/Vol] 9.6 ng/mL Normal >=6.7 [facility] Comment on above: Performed By: #### 2 660497, 5039280, 3797410, 1291472, 8234554, 3490511, 4465261, 39855577, 0640791, 8271215, 81519685 ####[facility] [address] [place] [address] Vit B12on 09-10-2022 Cobalamin (Vitamin B12) [Mass/Vol] 203 pg/mL Normal 50-1500 [facility] Comment on above: Performed By: #### 2 337782, 3153944, 1777119, 4304330, 1547954, 3172761, 2792199, 00223475, 8321193, 0449559, 44854677 ####[facility] [address] [place] [address] CA 27 29on 09-09-2022 Cancer Ag 27-29 Qn 15.2 unit/mL Invalid Interpretation Code 0.0-38.6 [facility] Comment on above: Result Comment: [facility] Immunochemiluminometric Methodology (ICMA)Values obtained with different assay methods or kits cannot be usedinterchangeably. Results cannot be interpreted as absolute evidenceof the presence or absence of malignant disease.Performed at: [facility] [place] [address] [id number] PhD [place] Avelar Performed By: #### 2 025243, 2071029, 6995177, 0806980, 7859863, 4414579, 2046912, 25576203, 8970208, 0056914, 58880169 ####[facility] [address] [place] [address] Auto Diffon 09-08-2022 Basophils/100 WBC (Bld) 0.4 % Normal 0.0-2.0 [facility] Comment on above: Order Comment: Order Added by Discern Expert. Performed By: #### 2 007113, 3161880, 3741000, 8172308, 5143068, 9007424, 5446885, 20981497, 8013266, 1366204, 30987468 ####[facility] [address] [place] [address] Basophils/Leukocytes Auto (Bld) [Pure # fraction] 0.0 E9/L Normal 0.0-0.2 [facility] Comment on above: Order Comment: Order Added by Discern Expert. Performed By: #### 2 417254, 9207175, 4054569, 0901311, 1766645, 8122288, 7727045, 82950981, 5446941, 7281765, 74143809 ####[address] [place] [address] Eosinophils/100 WBC (Bld) 1.4 % Normal 0.0-8.0 [facility] Comment on above: Order Comment: Order Added by Discern Expert. Performed By: #### 2 008648, 8144790, 7564625, 8708750, 7201564, 9421527, 5037352, 03316410, 2015649, 2274491, 83702854 ####[facility] [address] [place] [address] Eosinophils/Leukocytes Auto (Bld) [Pure # fraction] 0.1 E9/L Normal 0.0-0.5 [facility] Comment on above: Order Comment: Order Added by Discern Expert. Performed By: #### 2 080695, 9550927, 6113730, 7445526, 6281232, 7505794, 4665447, 00825157, 4442973, 2350283, 77842347 ####[address] [place] [address] Lymphocytes/100 WBC (Bld) 15.3 % Normal 14.0-50.0 [facility] Comment on above: Order Comment: Order Added by Discern Expert. Performed By: #### 2 447319, 1790836, 8944295, 1654479, 3445716, 7016800, 7758318, 41718331, 1516113, 0929951, 35689751 ####[facility] [address] [place] [address] Lymphocytes/Leukocytes Auto (Bld) [Pure # fraction] 0.8 E9/L Low 1.0-4.0 [facility] Comment on above: Order Comment: Order Added by Discern Expert. Performed By: #### 2 169603, 9173742, 9474243, 9190851, 7281044, 1701420, 7191189, 04049131, 2174147, 3265787, 40256357 ####[facility] [address] [place] [address] Monocytes/100 WBC (Bld) 2.8 % Low 4.0-14.0 [facility] Comment on above: Order Comment: Order Added by Discern Expert. Performed By: #### 2 422580, 9175193, 1834861, 9754983, 2716480, 4214873, 1709183, 59771396, 3851894, 2935337, 03219484 ####[facility] [address] [place] [address] Monocytes/Leukocytes Auto (Bld) [Pure # fraction] 0.1 E9/L Low 0.2-1.0 [facility] Comment on above: Order Comment: Order Added by Discern Expert. Performed By: #### 2 136487, 5718974, 8584249, 9330402, 5513139, 8559874, 5607984, 72361899, 1309759, 6062408, 68146743 ####[facility] [address] [place] [address] Neutrophils/100 WBC (Bld) 80.1 % High 36.0-75.0 [facility] Comment on above: Order Comment: Order Added by Discern Expert. Performed By: #### 2 029680, 7989878, 8630146, 8341846, 0900206, 4170382, 9112101, 56036157, 6270761, 2078316, 07254387 ####[facility] [address] [place] [address] Neutrophils/Leukocytes Auto (Bld) [Pure # fraction] 4.2 E9/L Normal 2.0-7.5 [facility] Comment on above: Order Comment: Order Added by Discern Expert. Performed By: #### 2 773814, 7483269, 8282224, 9126883, 8300020, 0280325, 3395128, 43765094, 1709212, 0300504, 28544268 ####[address] [address] CBC w/ Auto Diffon 3 Erythrocyte distribution width (RBC) [Ratio] 15.4 % High 10.9-14.2 [facility] Comment on above: Performed By: #### 2 344633, 4330521, 7633901, 2369019, 7430878, 9903948, 3390072, 63692015, 0637027, 1897380, 25203960 ####[address] [address] Hematocrit (Bld) [Volume fraction] 30.9 % Low 34.0-46.0 [facility] Comment on above: Performed By: #### 2 893418, 0983404, 1985103, 3202703, 9633144, 9980065, 5526040, 02755699, 2301826, 7465183, 32644292 ####[facility] [address] [place] [address] Hemoglobin (Bld) [Mass/Vol] 10.3 g/dL Low 12.0-16.0 [facility] Comment on above: Performed By: #### 2 444214, 3799918, 9883604, 2849211, 7321901, 0987409, 1338845, 68375710, 8207367, 1503900, 45334075 ####[facility] [address] [place] [address] MCH (RBC) [Entitic mass] 33.7 pg Normal 27.0-34.0 [facility] Comment on above: Performed By: #### 2 396490, 6247472, 9950823, 3618836, 5868831, 8168844, 5560615, 01743759, 8124992, 0470436, 52425253 ####[facility] [address] [place] [address] MCHC (RBC) [Mass/Vol] 33.1 g/dL Normal 31.4-36.0 [facility] Comment on above: Performed By: #### 2 271089, 7247284, 1607269, 3807909, 9972937, 1464798, 6730526, 04906713, 4124502, 8084600, 35498702 ####[address] [address] MCV (RBC) [Entitic vol] 101.8 fL High 80.0-100.0 [facility] Comment on above: Performed By: #### 2 667370, 2348711, 4418928, 7317009, 2102812, 9035862, 2546779, 61164832, 2839955, 7948409, 55768800 ####[facility] [address] [place] [address] Platelet mean volume (Bld) [Entitic vol] 7.2 fL Normal 6.4-10.8 [facility] Comment on above: Performed By: #### 2 012147, 7878379, 6867130, 8651127, 5531856, 0169396, 7142942, 25703312, 1928065, 0854996, 39022629 ####[address] [place] [address] Platelets (Bld) [#/Vol] 307.0 E9/L Normal 150. 0-500. 0 [facility] Comment on above: Performed By: #### 2 716200, 6025919, 1419384, 7978713, 8653764, 6653318, 7285399, 39580979, 7340917, 7148048, 30041247 ####[facility] [address] [place] [address] RBC (Bld) [#/Vol] 3.0 E12/L Low 4.3-5.9 [facility] Comment on above: Performed By: #### 2 969086, 2093374, 9999444, 4240785, 6428369, 4007743, 7403318, 41877973, 4924367, 1240947, 29057835 ####[address] [place] [address] WBC corrected for nucl RBC Auto (Bld) [#/Vol] 5.3 E9/L Normal 4.0-11.0 [facility] Comment on above: Performed By: #### 2 428385, 3555055, 3437631, 3349702, 4637984, 2281366, 8890158, 13980781, 3892374, 2290304, 13460400 ####[address] [address] CMPon 09-08-2022 Albumin [Mass/Vol] 3.1 g/dL Low 3.3-5.0 [facility] Comment on above: Performed By: #### 2 980960, 4283373, 3601511, 7196133, 6073930, 3952848, 9821545, 12449381, 1251732, 5391553, 73469933 ####[address] [place] [address] Albumin/Globulin (S) [Mass conc ratio] 0.8 Low 1.1-2.2 [facility] Comment on above: Performed By: #### 2 552879, 9429905, 0965160, 8203886, 5169176, 2179462, 5900551, 12345910, 8875753, 6841434, 50040645 ####[facility] [address] [place] [address] ALP [Catalytic activity/Vol] 156 Int._Unit/L High 21-98 [facility] Comment on above: Performed By: #### 2 178785, 4153602, 0354942, 2064642, 4970856, 2459533, 3289410, 39162028, 3344117, 6641461, 33738614 ####[facility] [address] [place] [address] ALT No additional P-5'-P [Catalytic activity/Vol] 16 Int._Unit/L Normal 6-46 [facility] Comment on above: Performed By: #### 2 886838, 3450083, 5975259, 6399373, 9602001, 6863395, 1508644, 40152160, 4370227, 7163379, 84160604 ####[facility] [address] [place] [address] Anion gap [Moles/Vol] 11 mmol/L Normal 6-16 [facility] Comment on above: Performed By: #### 2 857771, 6559502, 0585007, 5305527, 8896202, 3592079, 3819098, 48420675, 0484454, 6892468, 55937421 ####[facility] [address] [place] [address] AST [Catalytic activity/Vol] 17 Int._Unit/L Normal 5-43 [facility] Comment on above: Performed By: #### 2 251209, 1635249, 2230780, 4119496, 1777720, 4235903, 5894305, 62582217, 4754867, 2815758, 42520508 ####[facility] [address] [place] [address] Bilirubin [Mass/Vol] 0.8 mg/dL Normal 0.0-1.1 [facility] Comment on above: Performed By: #### 2 376249, 6837308, 7692439, 4992260, 0367878, 4702443, 9413311, 90079233, 9747861, 2010812, 84025997 ####[facility] [address] [place] [address] Calcium [Mass/Vol] 8.7 mg/dL Low 8.9-11.1 [facility] Comment on above: Performed By: #### 2 703389, 1341778, 7451890, 0042004, 6087858, 7212421, 0626594, 66857978, 3863796, 4750031, 02151048 ####[facility] [address] [place] [address] Chloride [Moles/Vol] 109 mmol/L Normal 101-111 [facility] Comment on above: Performed By: #### 2 266933, 3709323, 3693089, 9189177, 2630889, 0871890, 6693624, 85644774, 1614366, 7002399, 80992654 ####[facility] [address] [place] [address] CO2 [Moles/Vol] 23 mmol/L Normal 21-31 [facility] Comment on above: Performed By: #### 2 729144, 8834127, 8309850, 9628465, 2586958, 9233442, 4981285, 15076460, 9499234, 2478141, 03221942 ####[facility] [address] [place] [address] Creatinine [Mass/Vol] 1.3 mg/dL Normal 0.5-1.3 [facility] Comment on above: Performed By: #### 2 592760, 3167115, 0942890, 6149954, 5774301, 2466005, 2409900, 44635792, 7652672, 3109274, 86977411 ####[facility] [address] [place] [address] Globulin (S) [Mass/Vol] 4.0 g/dL Normal 1.4-4.0 [facility] Comment on above: Performed By: #### 2 873332, 3502939, 7451431, 8043156, 5261337, 8514170, 9071463, 91621889, 1943243, 6098336, 89378722 ####[facility] [address] [place] [address] Glucose [Mass/Vol] 133 mg/dL Normal 55-199 [facility] Comment on above: Result Comment: If t his glucose result represents a fasting glucose, interpretation should refer to the following reference range: 55-99 mg/dL Performed By: #### 2 045333, 9762905, 8841899, 6328391, 5967464, 3250675, 4391172, 41984569, 1551740, 4851249, 20359534 ####[facility] [address] [place] [address] Potassium [Moles/Vol] 4.2 mmol/L Normal 3.5-5.3 [facility] Comment on above: Performed By: #### 2 517377, 4534780, 3777171, 8199949, 1131720, 5712022, 3618419, 24092373, 6350062, 5665550, 10433890 ####[facility] [address] [place] [address] Protein [Mass/Vol] 7.1 g/dL Normal 6.0-7.8 [facility] Comment on above: Performed By: #### 2 200734, 6750773, 6300879, 0821449, 3741051, 0379103, 9968345, 79176035, 5703268, 8482620, 13782562 ####[facility] [address] [place] [address] Sodium [Moles/Vol] 139 mmol/L Normal 135-145 [facility] Comment on above: Performed By: #### 2 030522, 3759942, 1080694, 6364656, 3067282, 7943297, 8078230, 30049248, 8264342, 5983104, 29350155 ####[facility] [address] [place] [address] Urea nitrogen [Mass/Vol] 28 mg/dL High 5-21 [facility] Comment on above: Performed By: #### 2 938209, 2036819, 8250624, 2457020, 7595467, 5454071, 8744836, 79159113, 5169297, 4437672, 33700479 ####[facility] [address] [place] [address] Urea nitrogen/Creatinine [Mass ratio] 22 No Units High - [facility] Comment on above: Performed By: #### 2 463953, 0458524, 5392515, 3795045, 3193677, 7726757, 8188933, 56945595, 8607011, 7520531, 97072379 ####[facility] [address] [place] [address] Consent for Treatmenton 08-21 Consent for Treatment [id number]#1.00CD:[address] [facility] Consent for Treatment [id number]#1.00CD:12 7 [facility] Discharge Instructionson Discharge Instructions [id number]#1.00CD:1 27 [facility] ED Clinical Summaryon 2022 ED Clinical Summary Normal [facility] ED Note-Physicianon 09-09-19 ED Note-Physician Normal [facility] Comment on above: Result Comment: Elec tronically Signed By: Mendez Lucero PA-C.br\Date and Time Signed: 09/08/22 16:09 EDT\.br\Electronically Co-Signed By: Pedro Nava DO.br\Date and Time Co-Signed: 09/08/22 16:54 EDT ED Patient Education Noteon 09-08-2022 ED Patient Education Note Normal [facility] ED Patient Summaryon 023 ED Patient Summary Normal [facility] Ironon 09-08-2022 Iron [Mass/Vol] 48 microgram/dL Normal 35-153 [facility] Comment on above: Performed By: #### 2 460298, 3419246, 3596709, 7543604, 3264682, 0791033, 6565307, 06499207, 6472871, 7728044, 69775586 ####[facility] [address] [place] [address] Iron Saturationon 09-08-2022 Iron binding capacity [Mass/Vol] 239 microgram/dL Low 250-400 [facility] Comment on above: Performed By: #### 2 336329, 2676240, 1127018, 8346168, 5287157, 2205115, 8216198, 70039514, 4866624, 1714741, 01824469 ####[facility] [address] [place] [address] Iron saturation [Mass fraction] 20 % Normal 20-50 [facility] Comment on above: Performed By: #### 2 313025, 7479695, 1591589, 7787141, 3469919, 0371737, 9002207, 75054758, 8199125, 0837720, 33464618 ####[facility] [address] [place] [address] Transferrinon 09-08-2022 Transferrin [Mass/Vol] 170 mg/dL Low 200-370 [facility] Comment on above: Performed By: #### 2 590263, 5227985, 6770548, 5959982, 5384465, 3603344, 7463604, 93935483, 4273248, 3490972, 60917924 ####[facility] [address] [place] [address] eGFRon 09-08-2022 GFR/1.73 sq M.predicted among non-blacks MDRD (S/P/Bld) [Vol rate/Area] 43 mL/min/1.73 m2 Low >=59 [facility] Comment on above: Order Comment: Order added by Discern Expert. Result Comment: [employer] aubrey kidney disease could be indicated at eGFR's of less than 60 mL/min/1.73m2. Kidney failure is indicated at less than 15 mL/min/1.73m2. Performed By: #### 2 095042, 7260117, 4129636, 6847969, 1383403, 5770412, 2725975, 50925759, 6783352, 6879539, 74124828 ####[facility] [address] [place] [address] Coding Summary.on 08-04-[address] [facility] Coding Summary.on 08-02-[address]. [address] [facility] CA 27 29on 08-01-2022 Cancer Ag 27- Qn 13.4 unit/mL Invalid Interpretation Code 0.0-38.6 [facility] Comment on above: Result Comment: [employer] Immunochemiluminometric Methodology (ICMA)Values obtained with different assay methods or kits cannot be usedinterchangeably. Results cannot be interpreted as absolute evidenceof the presence or absence of malignant disease.Performed at: [facility] [id number] PhD [place] Avelar Performed By: #### 2 735990, 1946791, 8974421, 97061658, 40219900 ####[facility] [address] [place] [address] Consent for Treatmenton 07-21 Consent for Treatment [id number]#1.00CD:[address] [facility] Oncology Noteon 08-01-[address] [facility] Comment on above: Result Comment: Elec tronically Signed By: Jane FARMER, Yolande Houston\.br\Date and Time Signed: 08/01/22 15:08 EDT Oncology Progress Noteon Oncology Progress Note Normal [facility] Auto Diffon 07-30-2022 Basophils/100 WBC (Bld) 2.7 % High 0.0-2.0 [facility] Comment on above: Order Comment: Order Added by Discern Expert. Performed By: #### 2 199302, 7900946, 1021526, 85028925, 17982236 ####[address] [address] Basophils/Leukocytes Auto (Bld) [Pure # fraction] 0.1 E9/L Normal 0.0-0.2 [facility] Comment on above: Order Comment: Order Added by Discern Expert. Performed By: #### 2 606481, 1591707, 5123987, 00004362, 57315061 ####[address] [place] [address] Eosinophils/100 WBC (Bld) 3.5 % Normal 0.0-8.0 [facility] Comment on above: Order Comment: Order Added by Discern Expert. Performed By: #### 2 231499, 1746756, 5583875, 39551715, 12862102 ####[address] [address] Eosinophils/Leukocytes Auto (Bld) [Pure # fraction] 0.1 E9/L Normal 0.0-0.5 [facility] Comment on above: Order Comment: Order Added by Discern Expert. Performed By: #### 2 [id number], [id number], [id number], [id number], [id number] ####[address] [address] Lymphocytes/100 WBC (Bld) 22.7 % Normal 14.0-50.0 [facility] Comment on above: Order Comment: Order Added by Discern Expert. Performed By: #### 2 086805, 2218931, 1652581, [id number], [id number] ####[address] [address] Lymphocytes/Leukocytes Auto (Bld) [Pure # fraction] 0.8 E9/L Low 1.0-4.0 [facility] Comment on above: Order Comment: Order Added by Discern Expert. Performed By: #### 2 425102, 9186948, 9322605, [id number], [id number] ####[address] [address] Monocytes/100 WBC (Bld) 3.2 % Low 4.0-14.0 [facility] Comment on above: Order Comment: Order Added by Discern Expert. Performed By: #### 2 921651, 4320204, 1962029, 16352002, [id number] ####[address] [place] [address] Monocytes/Leukocytes Auto (Bld) [Pure # fraction] 0.1 E9/L Low 0.2-1.0 [facility] Comment on above: Order Comment: Order Added by Discern Expert. Performed By: #### 2 980422, 2376102, 5763974, [id number], [id number] ####[address] [place] [address] Neutrophils/100 WBC (Bld) 67.9 % Normal 36.0-75.0 [facility] Comment on above: Order Comment: Order Added by Discern Expert. Performed By: #### 2 086710, 6731612, 4231479, [id number], [id number] ####[address] [address] Neutrophils/Leukocytes Auto (Bld) [Pure # fraction] 2.5 E9/L Normal 2.0-7.5 [facility] Comment on above: Order Comment: Order Added by Discern Expert. Performed By: #### 2 091978, 2999895, 7980422, [id number], [id number] ####[address] [address] CBC w/ Auto Diffon 3 Erythrocyte distribution width (RBC) [Ratio] 15.9 % High 10.9-14.2 [facility] Comment on above: Performed By: #### 2 191341, 4161904, 1685605, [id number], [id number] ####[address] [address] Hematocrit (Bld) [Volume fraction] 32.4 % Low 34.0-46.0 [facility] [facility] Comment on above: Performed By: #### 2 841291, 2601792, 1447477, 97331823, 81696716 ####[facility] [address] [place] [address] Hemoglobin (Bld) [Mass/Vol] 10.5 g/dL Low 12.0-16.0 [facility] Comment on above: Performed By: #### 2 901008, 8770605, 7351666, 63762183, 25782525 ####[address] [address] MCH (RBC) [Entitic mass] 33.6 pg Normal 27.0-34.0 [facility] Comment on above: Performed By: #### 2 134011, 7579918, 7815365, 92270015, 53495403 ####[address] [address] MCHC (RBC) [Mass/Vol] 32.5 g/dL Normal 31.4-36.0 [facility] Comment on above: Performed By: #### 2 530668, 7217162, 5290916, 99591008, 31473757 ####[address] [address] MCV (RBC) [Entitic vol] 103.2 fL High 80.0-100.0 [facility] Comment on above: Performed By: #### 2 094129, 4382788, 4316703, 22444604, 43208691 ####[address] [address] Platelet mean volume (Bld) [Entitic vol] 7.4 fL Normal 6.4-10.8 [facility] Comment on above: Performed By: #### 2 538029, 0432041, 0510355, 82282766, 84948593 ####[address] [address] Platelets (Bld) [#/Vol] 142.0 E9/L Low 150. 0-500. 0 [facility] Comment on above: Performed By: #### 2 500430, 2692935, 5600537, 97901123, 05551932 ####[facility] [address] [place] [address] RBC (Bld) [#/Vol] 3.1 E12/L Low 4.3-5.9 [facility] Comment on above: Performed By: #### 2 499148, 0731796, 1152848, 86571410, 11930136 ####[facility] [address] [place] [address] WBC corrected for nucl RBC Auto (Bld) [#/Vol] 3.7 E9/L Low 4.0-11.0 [facility] Comment on above: Performed By: #### 2 645040, 9239282, 3740492, 21261685, 47569586 ####[facility] [address] [place] [address] CHEMISTRYOrdered By: SYSTEM SYSTEM on 07-30-2022 Albumin [...] 1.3 mg/dL Normal 0.5 - 1.3 mg/dL [facility] Remisol GFR/1.73 sq M.predicted among blacks MDRD (S/P/Bld) [Vol rate/Area] 49 mL/min/1.73 m2 Low >=59mL/min /1.73 m2 [facility] Chem S GFR/1.73 sq M.predicted among non-blacks MDRD (S/P/Bld) [Vol rate/Area] 40 mL/min/1.73 m2 Low >=59mL/min /1.73 m2 [facility] Chem S Globulin (S) [Mass/Vol] 3.2 g/dL Normal 1.4 - 4.0 gm/dL [facility] Remisol Glucose [Mass/Vol] 147 mg/dL Normal 55 - 199 mg/dL FT Remisol Potassium [Moles/Vol] 4.0 mmol/L Normal 3.5 - 5.3 mmol/L [facility] Remisol Protein [Mass/Vol] 6.5 g/dL Normal 6.0 - 7.8 gm/dL FT Remisol Sodium [Moles/Vol] 136 mmol/L Normal 135 - 145 mmol/L [facility] Remisol Urea nitrogen [Mass/Vol] 33 mg/dL High 5 - 21 mg/dL [facility] Remisol Urea nitrogen/Creatinine [Mass ratio] 25 mg/mg High 10 - 20 [facility] Remisol CMPon 07-30-2022 Albumin [Mass/Vol] 3.3 g/dL Normal 3.3-5.0 [facility] Comment on above: Performed By: #### 2 562821, 4878038, 5168933, 60724915, 88368991 ####[facility] [address] [place] [address] Albumin/Globulin (S) [Mass conc ratio] 1.0 Low 1.1-2.2 [facility] Comment on above: Performed By: #### 2 636031, 4989416, 0799631, 79054531, 52880317 ####[facility] [address] [place] [address] ALP [Catalytic activity/Vol] 121 Int._Unit/L High 21-98 [facility] Comment on above: Performed By: #### 2 618368, 4018111, 2562673, 62844884, 25222348 ####[facility] [address] [place] [address] ALT No additional P-5'-P [Catalytic activity/Vol] 15 Int._Unit/L Normal 6-46 [facility] Comment on above: Performed By: #### 2 786322, 0931725, 9973383, 04170379, 39964210 ####[facility] [address] [place] [address] Anion gap [Moles/Vol] 11 mmol/L Normal 6-16 [facility] Comment on above: Performed By: #### 2 959279, 4429220, 1828799, 95153881, 10795479 ####[address] [place] [address] AST [Catalytic activity/Vol] 15 Int._Unit/L Normal 5-43 [facility] Comment on above: Performed By: #### 2 031615, 5393568, 1315663, 36388816, 80730899 ####[facility] [address] [place] [address] Bilirubin [Mass/Vol] 0.9 mg/dL Normal 0.0-1.1 [facility] Comment on above: Performed By: #### 2 055442, 4676058, 6433590, 71298693, 46652890 ####[address] [place] [address] Calcium [Mass/Vol] 8.5 mg/dL Low 8.9-11.1 [facility] Comment on above: Performed By: #### 2 036092, 6472812, 2854429, 62877144, 10588990 ####[facility] [address] [place] [address] Chloride [Moles/Vol] 107 mmol/L Normal 101-111 [facility] Comment on above: Performed By: #### 2 393256, 6066691, 1034048, 76174400, 81439359 ####[facility] [address] [place] [address] CO2 [Moles/Vol] 22 mmol/L Normal 21-31 [facility] Comment on above: Performed By: #### 2 203354, 2841228, 8087764, 30606648, 06265574 ####[facility] [address] [place] [address] Creatinine [Mass/Vol] 1.3 mg/dL Normal 0.5-1.3 [facility] Comment on above: Performed By: #### 2 699968, 1883255, 4244558, 35300969, 64139501 ####[facility] [address] [place] [address] Globulin (S) [Mass/Vol] 3.2 g/dL Normal 1.4-4.0 [facility] Comment on above: Performed By: #### 2 406299, 4215227, 2224893, 82287561, 69158308 ####[facility] [address] [place] [address] Glucose [Mass/Vol] 147 mg/dL Normal 55-199 [facility] Comment on above: Result Comment: If t his glucose result represents a fasting glucose, interpretation should refer to the following reference range: 55-99 mg/dL Performed By: #### 2 375207, 7842274, 8839209, 05890451, 36094279 ####[facility] [address] [place] [address] Potassium [Moles/Vol] 4.0 mmol/L Normal 3.5-5.3 [facility] Comment on above: Performed By: #### 2 378470, 9357495, 6395356, 22861522, 11760259 ####[facility] [address] [place] [address] Protein [Mass/Vol] 6.5 g/dL Normal 6.0-7.8 [facility] Comment on above: Performed By: #### 2 581780, 8869751, 4422302, 32092568, 80401076 ####[facility] [address] [place] [address] Sodium [Moles/Vol] 136 mmol/L Normal 135-145 [facility] Comment on above: Performed By: #### 2 084791, 7449584, 2959435, 07684586, 51535977 ####[facility] [address] [place] [address] Urea nitrogen [Mass/Vol] 33 mg/dL High 5-21 [facility] Comment on above: Performed By: #### 2 476963, 7927368, 9406805, 67275773, 96183924 ####[facility] [address] [place] [address] Urea nitrogen/Creatinine [Mass ratio] 25 No Units High 10-20 [facility] Comment on above: Performed By: #### 2 744100, 7025679, 0219223, 23524012, 30842377 ####[facility] [address] [place] [address] Consent for Treatmenton 07-21 Consent for Treatment [id number]#1.00CD:[address] [facility] HEMATOLOGYOrdered By: SYSTEM SYSTEM on 07-30-2022 Basophils/100 [...] [Vol rate/Area] 49 mL/min/1.73 m2 Low >=59 [facility] Comment on above: Order Comment: Order added by Discern Expert. Result Comment: eGFR is race adjusted. AA=. Performed By: #### 2 536534, 5388273, 1150028, 97533255, 53563374 ####[facility] [address] [place] [address] GFR/1.73 sq M.predicted among non-blacks MDRD (S/P/Bld) [Vol rate/Area] 40 mL/min/1.73 m2 Low >=59 [facility] Comment on above: Order Comment: Order added by Discern Expert. Result Comment: [employer] aubrey kidney disease could be indicated at eGFR's of less than 60 mL/min/1.73m2. Kidney failure is indicated at less than 15 mL/min/1.73m2. Performed By: #### 2 739651, 0048777, 0585043, 98516060, 98442936 ####[facility] [address] [place] [address] Coding Summary.on 07-27-[address]. [address] [facility] NM PET w/ CT Scan Skull Base to Midthighon 07-26-2022 NM PET w/ CT Scan Skull Base to Midthigh Normal [facility] RAD - MISCon 07-26-2022 RAD - MISC [id number]#1.00CD:[address] [facility] Consent for Treatmenton Consent for Treatment [id number]#1.00CD:[address] [facility] Physician Orderon 07-25-2022 Physician Order [id number]#1.00CD:[address] [facility] Coding Summary.on 07-13-[address] [facility] CA 27 29on 07-10-2022 Cancer Ag 27-29 Qn 14.4 unit/mL Invalid Interpretation Code 0.0-38.6 [facility] Comment on above: Result Comment: Siem [employer] Immunochemiluminometric Methodology (ICMA)Values obtained with different assay methods or kits cannot be usedinterchangeably. Results cannot be interpreted as absolute evidenceof the presence or absence of malignant disease.Performed at: [facility], [place] [id number] PhD [place] Avelar Performed By: #### 1 7270723, 0648114, 0038479, 79596472, 9789332 ####[address] [place] [address] Auto Diffon 07-09-2022 Basophils/100 WBC (Bld) 2.7 % High 0.0-2.0 [facility] Comment on above: Order Comment: Order Added by Discern Expert. Performed By: #### 1 0432456, 3317453, 7963400, 89438083, 4369070 ####[address] [place] [address] Basophils/Leukocytes Auto (Bld) [Pure # fraction] 0.1 E9/L Normal 0.0-0.2 [facility] Comment on above: Order Comment: Order Added by Discern Expert. Performed By: #### 1 0679394, 0079241, 9567314, 67341951, 6184372 ####[address] [place] [address] Eosinophils/100 WBC (Bld) 1.9 % Normal 0.0-8.0 [facility] Comment on above: Order Comment: Order Added by Discern Expert. Performed By: #### 1 6698146, 0584096, 7926099, 72792604, 0374976 ####[address] [place] [address] Eosinophils/Leukocytes Auto (Bld) [Pure # fraction] 0.1 E9/L Normal 0.0-0.5 [facility] Comment on above: Order Comment: Order Added by Discern Expert. Performed By: #### 1 5161661, 5770377, 9329694, 48459349, 4875244 ####[address] [place] [address] Lymphocytes/100 WBC (Bld) 31.4 % Normal 14.0-50.0 [facility] Comment on above: Order Comment: Order Added by Discern Expert. Performed By: #### 1 6926544, 9800570, 4240985, 52253699, 3729832 ####[facility] [address] [place] [address] Lymphocytes/Leukocytes Auto (Bld) [Pure # fraction] 1.3 E9/L Normal 1.0-4.0 [facility] Comment on above: Order Comment: Order Added by Discern Expert. Performed By: #### 1 6024277, 6701585, 8276877, 96494184, 4051987 ####[address] [address] Monocytes/100 WBC (Bld) 5.5 % Normal 4.0-14.0 [facility] Comment on above: Order Comment: Order Added by Discern Expert. Performed By: #### 1 3782052, 4130901, 8111986, 39755127, 8479049 ####[address] [address] Monocytes/Leukocytes Auto (Bld) [Pure # fraction] 0.2 E9/L Normal 0.2-1.0 [facility] Comment on above: Order Comment: Order Added by Discern Expert. Performed By: #### 1 3485241, 1942581, 6689381, 14346579, 9482345 ####[address] [place] [address] Neutrophils/100 WBC (Bld) 58.5 % Normal 36.0-75.0 [facility] Comment on above: Order Comment: Order Added by Discern Expert. Performed By: #### 1 1790474, 2977301, 4210399, 80701596, 4565146 ####[address] [place] [address] Neutrophils/Leukocytes Auto (Bld) [Pure # fraction] 2.5 E9/L Normal 2.0-7.5 [facility] Comment on above: Order Comment: Order Added by Discern Expert. Performed By: #### 1 2671516, 0071235, 2238868, 23794147, 3759929 ####[address] [place] [address] CBC w/ Auto Diffon Erythrocyte distribution width (RBC) [Ratio] 17.1 % High 10.9-14.2 [facility] Comment on above: Performed By: #### 1 4604369, 9493065, 8952244, 07030412, 2492906 ####[address] [place] [address] Hematocrit (Bld) [Volume fraction] 36.3 % Normal 34.0-46.0 [facility] Comment on above: Performed By: #### 1 4570251, 5408223, 5616377, 97454633, 8224762 ####[address] [address] Hemoglobin (Bld) [Mass/Vol] 11.9 g/dL Low 12.0-16.0 [facility] Comment on above: Performed By: #### 1 2847513, 3547226, 0717941, 16568115, 6331881 ####[address] [address] MCH (RBC) [Entitic mass] 33.4 pg Normal 27.0-34.0 [facility] Comment on above: Performed By: #### 1 1224714, 9400318, 9158527, 99151621, 9246808 ####[address] [address] MCHC (RBC) [Mass/Vol] 32.9 g/dL Normal 31.4-36.0 [facility] Comment on above: Performed By: #### 1 7969794, 7824635, 9367070, 42394169, 4168743 ####[address] [address] MCV (RBC) [Entitic vol] 101.5 fL High 80.0-100.0 [facility] Comment on above: Performed By: #### 1 0982200, 8878812, 3980851, 92467319, 1727064 ####[facility] [address] [place] [address] Platelet mean volume (Bld) [Entitic vol] 7.3 fL Normal 6.4-10.8 [facility] Comment on above: Performed By: #### 1 5436134, 8697254, 9125937, 17177545, 6461977 ####[facility] [address] [place] [address] Platelets (Bld) [#/Vol] 205.0 E9/L Normal 150. 0-500. 0 [facility] Comment on above: Performed By: #### 1 6781947, 8743334, 3006750, 81901681, 9670658 ####[address] [place] [address] RBC (Bld) [#/Vol] 3.6 E12/L Low 4.3-5.9 [facility] Comment on above: Performed By: #### 1 8762944, 6186042, 1924850, 00465651, 6940611 ####[facility] [address] [place] [address] WBC corrected for nucl RBC Auto (Bld) [#/Vol] 4.2 E9/L Normal 4.0-11.0 [facility] Comment on above: Performed By: #### 1 1155122, 1226074, 2915196, 05549468, 4334122 ####[facility] [address] [place] [address] CHEMISTRYOrdered By: SYSTEM SYSTEM on 07-09-2022 Albumin [...] 07-09-2022 Albumin [Mass/Vol] 3.6 g/dL Normal 3.3-5.0 [facility] Comment on above: Performed By: #### 1 5216716, 5750162, 1246481, 66604936, 7201365 ####[facility] [address] [place] [address] Albumin/Globulin (S) [Mass conc ratio] 1.1 Normal 1.1-2.2 [facility] Comment on above: Performed By: #### 1 9844891, 1873906, 6457487, 44372981, 9461878 ####[facility] [address] [place] [address] ALP [Catalytic activity/Vol] 87 Int._Unit/L Normal 21-98 [facility] Comment on above: Performed By: #### 1 1120855, 6123823, 3636965, 28074785, 6778948 ####[facility] [address] [place] [address] ALT No additional P-5'-P [Catalytic activity/Vol] 18 Int._Unit/L Normal 6-46 [facility] Comment on above: Performed By: #### 1 7097693, 3823366, 0968147, 64433998, 0301908 ####[facility] [address] [place] [address] Anion gap [Moles/Vol] 11 mmol/L Normal 6-16 [facility] Comment on above: Performed By: #### 1 6570048, 8893020, 3666015, 17628916, 8379720 ####[facility] [address] [place] [address] AST [Catalytic activity/Vol] 18 Int._Unit/L Normal 5-43 [facility] Comment on above: Performed By: #### 1 6413076, 3239049, 7187709, 74369988, 8764801 ####[facility] [address] [place] [address] Bilirubin [Mass/Vol] 1.0 mg/dL Normal 0.0-1.1 [facility] Comment on above: Performed By: #### 1 9694889, 0629652, 3297135, 30685917, 5340529 ####[facility] [address] [place] [address] Calcium [Mass/Vol] 8.7 mg/dL Low 8.9-11.1 [facility] Comment on above: Performed By: #### 1 2223834, 5981901, 9456084, 81709987, 6594457 ####[facility] [address] [place] [address] Chloride [Moles/Vol] 108 mmol/L Normal 101-111 [facility] Comment on above: Performed By: #### 1 9004391, 4997266, 3193549, 87581250, 8852272 ####[facility] [address] [place] [address] CO2 [Moles/Vol] 23 mmol/L Normal 21-31 [facility] Comment on above: Performed By: #### 1 3420607, 6054299, 7872276, 51180506, 3503289 ####[facility] [address] [place] [address] Creatinine [Mass/Vol] 1.3 mg/dL Normal 0.5-1.3 [facility] Comment on above: Performed By: #### 1 1805083, 2800750, 3655105, 21306835, 7267310 ####[facility] [address] [place] [address] Globulin (S) [Mass/Vol] 3.4 g/dL Normal 1.4-4.0 [facility] Comment on above: Performed By: #### 1 1587180, 9932620, 7493008, 78254890, 2170312 ####[facility] [address] [place] [address] Glucose [Mass/Vol] 119 mg/dL Normal 55-199 [facility] Comment on above: Result Comment: If t his glucose result represents a fasting glucose, interpretation should refer to the following reference range: 55-99 mg/dL Performed By: #### 1 2651803, 8567972, 8398616, 76381919, 7124531 ####[facility] [address] [place] [address] Potassium [Moles/Vol] 4.1 mmol/L Normal 3.5-5.3 [facility] Comment on above: Performed By: #### 1 6600688, 6550788, 3928705, 25239707, 3899053 ####[facility] [address] [place] [address] Protein [Mass/Vol] 7.0 g/dL Normal 6.0-7.8 [facility] Comment on above: Performed By: #### 1 7421825, 5679639, 7335034, 16842375, 3922184 ####[facility] [address] [place] [address] Sodium [Moles/Vol] 138 mmol/L Normal 135-145 [facility] Comment on above: Performed By: #### 1 3259519, 3562938, 8284607, 32384625, 6002093 ####[facility] [address] [place] [address] Urea nitrogen [Mass/Vol] 24 mg/dL High 5-21 [facility] Comment on above: Performed By: #### 1 3609975, 0560392, 6806638, 45374941, 0799875 ####[facility] [address] [place] [address] Urea nitrogen/Creatinine [Mass ratio] 18 No Units Normal 10-20 [facility] Comment on above: Performed By: #### 1 1844859, 4307707, 9624771, 76536535, 2241285 ####[facility] [address] [place] [address] Consent for Treatmenton 06-21 Consent for Treatment [id number]#1.00CD:[address] [facility] HEMATOLOGYOrdered By: SYSTEM SYSTEM on 07-09-2022 [...] 101.5 fL High 80.0 - 100.0 fL [facility] HemeAuto[facility] Platelet mean volume (Bld) [Entitic vol] 7.3 fL Normal 6.4 - 10.8 fL [facility] HemeAutoSS Platelets (Bld) [#/Vol] 205.0 E9/L Normal 150. 0 - 500.0 E9/L [facility] HemeAutoSS RBC (Bld) [#/Vol] 3.6 E12/L Low 4.3 - 5.9 E12/L [facility] HemeAutoSS WBC corrected for nucl RBC Auto (Bld) [#/Vol] 4.2 E9/L Normal 4.0 - 11.0 E9/L [facility] HemeAutoSS eGFRon 07-09-2022 GFR/1.73 sq M.predicted among blacks MDRD (S/P/Bld) [Vol rate/Area] 49 mL/min/1.73 m2 Low >=59 [facility] Comment on above: Order Comment: Order added by Discern Expert. Result Comment: eGFR is race adjusted. AA=. Performed By: #### 1 3247179, 4766439, 0101206, 20458159, 6421025 ####[facility] [address] [place] [address] GFR/1.73 sq M.predicted among non-blacks MDRD (S/P/Bld) [Vol rate/Area] 40 mL/min/1.73 m2 Low >=59 [facility] Comment on above: Order Comment: Order added by Discern Expert. Result Comment: [employer] aubrey kidney disease could be indicated at eGFR's of less than 60 mL/min/1.73m2. Kidney failure is indicated at less than 15 mL/min/1.73m2. Performed By: #### 1 9212163, 2322576, 9511955, 90123271, 6769141 ####[facility] [address] [place] [address] ONC - Otheron 06-28-2022 ONC - Other [id number]#1.00CD:[address] [facility] CHEMISTRYOrdered By: SYSTEM SYSTEM on 06-05-2022 Albumin [...] [facility] HemeAutoSS Reference Laboratory Testing Ordered By: AppAdd[employer] DomainUser on 06-05-2022 Cancer Ag Qn 17.2 unit/mL Invalid Interpretation Code 0.0-38.6un it/mL [facility] SendOutsSS Comment on above: Result Comment: Siem [facility] [employer] Immunochemiluminometric Methodology (ICMA) Values obtained with different assay methods or kits cannot be used interchangeably. Results cannot be interpreted as absolute evidence of the presence or absence of malignant disease. Performed at: [address] [id number] PhD [place] Avelar CHEMISTRYOrdered By: SYSTEM SYSTEM [...] Low >=59mL/min /1.73 m2 [facility] Chem S Globulin (S) [Mass/Vol] 3.2 g/dL [...] 2.2 % High 0.0 - 2.0 % FT [...] [iU]/d Normal 5 - 43 Int._Unit/ L FT Remisol Bilirubin [Mass/Vol] 0.7 mg/dL Normal 0.0 [...] 38 mL/min/1.73 m2 Low >=59mL/min /1.73 m2 [facility] Chem S GFR/1.73 sq M.predicted among non-blacks MDRD (S/P/Bld) [Vol rate/Area] 32 mL/min/1.73 m2 Low >=59mL/min /1.73 m2 [facility] Chem S Globulin (S) [Mass/Vol] 3.5 g/dL [...] 41 mL/min/1.73 m2 Low >=59mL/min /1.73 m2 [facility] Chem S GFR/1.73 sq M.predicted among non-blacks MDRD (S/P/Bld) [Vol rate/Area] 34 mL/min/1.73 m2 Low >=59mL/min /1.73 m2 [facility] Chem S Globulin (S) [Mass/Vol] 3.2 g/dL [...] 4.0 - 11.0 E9/L [facility] HemeAutoSS Clinic Note - Heme Onc Ollie [...] 28-Aug-2021 16:01 by Isa Wong (SEC) Normal [facility] Clinic Note - Heme Onc-Meng king 08-28-2021 Clinic Note - Heme Onc-New Visit Patient Visit Information: Visit Type: New Visit Cancer History: Breast AJCC Edition: 8th (AJCC), Diagnosis Date: August 2021, Stage(no match), pM1 G2 History of Present Illness: ID Statement: null is a () day old null Interval History: BREAST CANCER DIAGNOSIS metastatic ER+/TX+/HER2- breast cancer ([id number]) CONSULTING ONCOLOGIST Dr David Caldera CURRENT THERAPY [...] corresponding to (more content not included)... Normal [facility] Clinic Note - Intakeon 08-28 Clinic Note [...] (kg/m2)39 kg/M2 BSA (m2)2.08 M2 Nursing Verification [id number] Nursing Verification Height in cm159 centimeter(s) SpO2 (%)98 % SpO2 Patient Onroom air Pain Screening: Patient States Painno (0) Application Security Specialist for intimate exam offered to patient: Patient [...] you are livingno Depression: Past 2 wks: [place] down, depressed or hopelessno Past 2 wks: [place] little interest/pleasure doing thingsno Any Thoughts of [...] 13:21) Authored: Patient Visit Information, Vital Signs, Application Security Specialist, Allergies, Outpatient Medication Profile, Notification, Travel History, Falls, Spiritual/Procedural, Adv Dir, Violence, Depression, Substance, Nutrition/Learning Lisette Valle (RN) (Signed 28-Aug-2021 15:47) Authored: Vital Signs, Notification Co-Signer: Patient Visit Information, Vital Signs, Application Security Specialist, Allergies, Outpatient Medication Profile, Notification, Travel History, Falls, Spiritual/Procedural, Adv Dir, Violence, Depression, Substance, Nutrition/Learning Last Updated: 28-Aug-2021 15:47 by Lisette Valle (RN) Normal [facility] Narrative Note - Outpatient- Community Health Workeron 08-25-2021 Narrative Note - Outpatient-Community Health Worker Narrative Note: [facility] Best way to contact patient#[id number] Veteranno Has patient been seen by a [...] spelled wrong and that it should list [place] not [place]. Electronic Signatures: Leroy Gallegos (COOR) (Signed 25-Aug-2021 11:50) Authored: CHW Last Updated: 25-Aug-2021 11:50 by Leroy Gallegos (COOR) Normal [facility] CHEMISTRYOrdered By: SYSTEM SYSTEM on 08-21-2021 Albumin [...] 88.9 fL Normal 80.0 - 100.0 fL [facility] Platelet mean volume (Bld) [Entitic vol] 7.9 fL Normal 6.4 - 10.8 fL [facility] Platelets (Bld) [#/Vol] 185.0 E9/L Normal 150. 0 - 500.0 E9/L [facility] RBC (Bld) [#/Vol] 4.6 E12/L Normal 4.3 - 5.9 E12/L [facility] WBC corrected for nucl RBC Auto (Bld) [#/Vol] 7.6 E9/L Normal 4.0 - 11.0 E9/L [facility] Nurse Navigator - Breast-Sec ond Opinionon [...] explained role within the multidisciplinary team at [facility]; reviewed upcoming appointment with Dr. Seay, [...] Updated: 16-Aug-2021 11:34 by Aliya Dobson) Normal [facility] CHEMISTRYOrdered By: SYSTEM SYSTEM on 08-07-2021 Albumin [...] Facility 06-12-2023 10:55-0500 Body temperature 98.06 [degF] [facility] 06-12-2023 10:55-0500 Diastolic blood pressure 66 mm[Hg] [facility] 06-12-2023 10:55-0500 Heart rate 68 /min [facility] 06-12-2023 10:55-0500 Mean blood pressure 79 mm[Hg] [facility] 06-12-2023 10:55-0500 Respiratory rate 16 /min [facility] 06-12-2023 10:55-0500 SaO2% (BldA) [Mass fraction] 97 % [facility] 06-12-2023 10:55-0500 Systolic blood pressure 106 mm[Hg] [facility] 05-31-2023 08:36-0500 Body height 160.02 cm MD Mary Rodriguez Work Phone: [facility] 05-31-2023 08:36-0500 Body weight 86.18 kg MD Mary Rodriguez Work Phone: [facility] 05-01-2023 14:03-0500 Heart rate 70 /min [facility] 05-01-2023 14:03-0500 SaO2% (BldA) [Mass fraction] 98 % [facility] 05-01-2023 14:02-0500 Body temperature 98.24 [degF] [facility] 05-01-2023 14:02-0500 Diastolic blood pressure 81 mm[Hg] [facility] 05-01-2023 14:02-0500 Mean blood pressure 93 mm[Hg] [facility] 05-01-2023 14:02-0500 Systolic blood pressure 118 mm[Hg] [facility] 01-30-2023 14:25-0400 Heart rate 76 /min [facility] 01-30-2023 14:25-0400 SaO2% (BldA) [Mass fraction] 96 % [facility] 01-30-2023 14:25-0400 Diastolic blood pressure 61 mm[Hg] [facility] 01-30-2023 14:25-0400 Mean blood pressure 79 mm[Hg] [facility] 01-30-2023 14:25-0400 Systolic blood pressure 115 mm[Hg] [facility] 01-30-2023 14:25-0400 Body temperature 97.7 [degF] [facility] 01-30-2023 14:00-0400 Blood Pressure Location [facility] 01-30-2023 14:00-0400 Respiratory rate 16 /min [facility] 12-23-2022 10:15-0400 Hourly Rounding [facility]efo [facility] 12-23-2022 10:15-0400 Promise to Return [facility]ef[facility] 12-23-2022 09:00-0400 Hourly Rounding [facility]efo [facility] 12-23-2022 09:00-0400 Promise to Return [facility] 12-23-2022 08:46-0400 Diastolic blood pressure 64 mm[Hg] [facility] 12-23-2022 08:46-0400 Systolic blood pressure 96 mm[Hg] [facility] 12-23-2022 08:40-0400 gluc 111 mg/dL [facility] 12-23-2022 08:37-0400 Heart rate 56 /min [facility] 12-23-2022 08:37-0400 SaO2% (BldA) [Mass fraction] 96 % [facility] 12-23-2022 08:37-0400 Respiratory rate 18 /min [facility] 12-23-2022 08:37-0400 Body temperature 97.88 [degF] [facility] 12-23-2022 08:37-0400 Diastolic blood pressure 64 mm[Hg] [facility] 12-23-2022 08:37-0400 Mean blood pressure 74 mm[Hg] [facility] 12-23-2022 08:37-0400 Systolic blood pressure 96 mm[Hg] [facility] 12-23-2022 08:00-0400 Hourly Rounding [facility]ef[facility] 12-23-2022 08:00-0400 Promise to Return [facility]ef[facility] 12-22-2022 23:44-0400 Heart rate 58 /min [facility] 12-22-2022 23:44-0400 SaO2% (BldA) [Mass fraction] 97 % [facility] 12-22-2022 23:44-0400 Body temperature 98.06 [degF] [facility] 12-22-2022 23:44-0400 Diastolic blood pressure 60 mm[Hg] [facility] 12-22-2022 23:44-0400 Mean blood pressure 72 mm[Hg] [facility] 12-22-2022 23:44-0400 Systolic blood pressure 96 mm[Hg] [facility] 12-22-2022 19:33-0400 Heart rate 62 /min [facility] 12-22-2022 19:33-0400 SaO2% (BldA) [Mass fraction] 97 % [facility] 12-22-2022 19:33-0400 Body temperature 98.24 [degF] [facility] 12-22-2022 19:32-0400 Mean blood pressure 69 mm[Hg] [facility] 12-22-2022 16:03-0400 gluc 129 mg/dL [facility] 12-22-2022 15:46-0400 Respiratory rate 16 /min [facility] 12-22-2022 11:52-0400 gluc 158 mg/dL [facility] 12-22-2022 11:13-0400 Respiratory rate 13 /min [facility] 12-22-2022 06:56-0400 Blood Pressure Location [facility] 12-22-2022 06:56-0400 Body temperature 98.42 [degF] [facility] 12-22-2022 06:56-0400 Mean blood pressure 85 mm[Hg] [facility] 12-21-2022 23:00-0400 Blood Pressure Location [facility] 12-21-2022 23:00-0400 Body temperature 98.96 [degF] [facility] 12-21-2022 23:00-0400 Mean blood pressure 84 mm[Hg] [facility] 12-21-2022 05:35-0400 Mean blood pressure 79 mm[Hg] [facility] 12-20-2022 21:08-0400 Body temperature 97.7 [degF] [facility] 12-20-2022 21:08-0400 Heart rate 65 /min [facility] 12-20-2022 15:06-0400 Heart rate 75 /min [facility] 12-20-2022 00:45-0400 Diastolic blood pressure 72 mm[Hg] David Ran [facility] 12-20-2022 00:45-0400 Heart rate 76 /min David [facility] 12-20-2022 00:45-0400 Mean blood pressure 89 mm[Hg] David Ran [facility] 12-20-2022 00:45-0400 Respiratory rate 14 /min David Ran [facility] 12-20-2022 00:45-0400 SaO2% (BldA) [Mass fraction] 100 % David Ran [facility] 12-20-2022 00:45-0400 Systolic blood pressure 124 mm[Hg] David Ran [facility] 12-20-2022 00:15-0400 Diastolic blood pressure 70 mm[Hg] David Ran [facility] 12-20-2022 00:15-0400 Heart rate 71 /min David Ran [facility] 12-20-2022 00:15-0400 Mean blood pressure 92 mm[Hg] David Ran [facility] 12-20-2022 00:15-0400 Respiratory rate 14 /min David Ran [facility] 12-20-2022 00:15-0400 SaO2% (BldA) [Mass fraction] 92 % David Ran [facility] 12-20-2022 00:15-0400 Systolic blood pressure 137 mm[Hg] David Ran [facility] 12-19-2022 23:45-0400 Diastolic blood pressure 61 mm[Hg] David Ran [facility] 12-19-2022 23:45-0400 Heart rate 80 /min David Ran [facility] 12-19-2022 23:45-0400 Mean blood pressure 85 mm[Hg] David Ran [facility] 12-19-2022 23:45-0400 Respiratory rate 16 /min David Ran [facility] 12-19-2022 23:45-0400 SaO2% (BldA) [Mass fraction] 97 % David Ran [facility] 12-19-2022 23:45-0400 Systolic blood pressure 132 mm[Hg] David Ran [facility] 12-19-2022 20:41-0400 Body temperature 98.24 [degF] David Ran [facility] 12-19-2022 20:41-0400 Heart rate 82 /min David Ran [facility] 12-19-2022 20:41-0400 Respiratory rate 20 /min David Ran [facility] 12-17-2022 13:20-0400 Diastolic blood pressure 77 mm[Hg] Jeffery Castelane [facility] 12-17-2022 13:20-0400 Heart rate 60 /min Jeffery Castelane [facility] 12-17-2022 13:20-0400 Hourly Rounding Jeffery Katherine [facility] 12-17-2022 13:20-0400 Mean blood pressure 95 mm[Hg] Jeffery Katherine [facility] 12-17-2022 13:20-0400 Promise to Return Jeffery Castelane [facility] 12-17-2022 13:20-0400 SaO2% (BldA) [Mass fraction] 97 % Jeffery Katherine [facility] 12-17-2022 13:20-0400 Systolic blood pressure 132 mm[Hg] Jeffery Katherine [facility] 12-17-2022 12:20-0400 Diastolic blood pressure 71 mm[Hg] Jeffery Katherine [facility] 12-17-2022 12:20-0400 Heart rate 71 /min Jeffery Katherine [facility] 12-17-2022 12:20-0400 Hourly Rounding Jeffery Katherine [facility] 12-17-2022 12:20-0400 Mean blood pressure 86 mm[Hg] Jeffery Katherine [facility] 12-17-2022 12:20-0400 Promise to Return Jeffery Katherine [facility] 12-17-2022 12:20-0400 SaO2% (BldA) [Mass fraction] 96 % Jeffery Katherine [facility] 12-17-2022 12:20-0400 Systolic blood pressure 117 mm[Hg] Jeffery Katherine [facility] 12-17-2022 11:21-0400 Hourly Rounding Jeffery Castelane [facility] 12-17-2022 11:21-0400 Promise to Return Jeffery Castelane [facility] 12-17-2022 11:20-0400 Diastolic blood pressure 84 mm[Hg] Jeffery Katherine [facility] 12-17-2022 11:20-0400 Heart rate 68 /min Jeffery Castelane [facility] 12-17-2022 11:20-0400 Mean blood pressure 99 mm[Hg] Jeffery Castelane [facility] 12-17-2022 11:20-0400 Respiratory rate 18 /min Jeffery Katherine [facility] 12-17-2022 11:20-0400 SaO2% (BldA) [Mass fraction] 96 % Jeffery Katherine [facility] 12-17-2022 11:20-0400 Systolic blood pressure 130 mm[Hg] Jeffery Katherine [facility] 12-17-2022 10:22-0400 Body temperature 97.88 [degF] Jeffery Katherine [facility] 12-17-2022 10:22-0400 Heart rate 69 /min Jeffery Katherine [facility] 12-17-2022 10:22-0400 Respiratory rate 18 /min Jeffery Katherine [facility] 11-04-2022 14:00-0400 Hourly Rounding Ronobir JESSICA [facility] 11-04-2022 13:40-0400 Hourly Rounding Ronobir JESSICA [facility] 11-04-2022 13:40-0400 Promise to Return Ronobir JESSICA [facility] 11-04-2022 13:00-0400 Hourly Rounding Ronobir JESSICA [facility] 11-04-2022 12:26-0400 Promise to Return Ronobir JESSICA [facility] 11-04-2022 11:48-0400 Heart rate 78 /min Ronobir JESSICA [facility] 11-04-2022 11:48-0400 SaO2% (BldA) [Mass fraction] 95 % Ronobir JESSICA [facility] 11-04-2022 11:48-0400 Diastolic blood pressure 83 mm[Hg] Ronobir JESSICA [facility] 11-04-2022 11:48-0400 Mean blood pressure 96 mm[Hg] Ronobir JESSICA [facility] 11-04-2022 11:48-0400 Systolic blood pressure 122 mm[Hg] Ronobir JESSICA [facility] 11-04-2022 11:48-0400 Body temperature 98.24 [degF] Ronobir JESSICA [facility] 11-04-2022 11:17-0400 Promise to Return Ronobir JESSICA [facility] 11-04-2022 08:24-0400 Diastolic blood pressure 78 mm[Hg] Ronobir JESSICA [facility] 11-04-2022 08:24-0400 Systolic blood pressure 127 mm[Hg] Ronobir JESSICA [facility] 11-04-2022 07:32-0400 Heart rate 77 /min Ronobir JESSICA [facility] 11-04-2022 07:32-0400 SaO2% (BldA) [Mass fraction] 94 % Ronobir JESSICA [facility] 11-04-2022 07:31-0400 Body temperature 97.7 [degF] Ronobir JESSICA [facility] 11-04-2022 07:31-0400 Diastolic blood pressure 78 mm[Hg] Ronobir JESSICA [facility] 11-04-2022 07:31-0400 Mean blood pressure 94 mm[Hg] Ronobir JESSICA [facility] 11-04-2022 07:31-0400 Systolic blood pressure 127 mm[Hg] Ronobir JESSICA [facility] 11-03-2022 23:16-0400 Heart rate 79 /min Ronobir JESSICA [facility] 11-03-2022 23:16-0400 SaO2% (BldA) [Mass fraction] 97 % Ronobir JESSICA [facility] 11-03-2022 23:16-0400 Mean blood pressure 108 mm[Hg] Ronobir JESSICA [facility] 11-03-2022 23:15-0400 Body temperature 97.7 [degF] Ronobir JESSICA [facility] 11-03-2022 20:00-0400 Blood Pressure Location Ronobir JESSICA [facility] 11-03-2022 20:00-0400 Respiratory rate 21 /min Ronobir JESSICA [facility] 11-03-2022 09:00-0400 Mean blood pressure 87 mm[Hg] Ronobir JESSICA [facility] 11-03-2022 09:00-0400 Respiratory rate 16 /min Ronobir JESSICA [facility] 11-02-2022 21:15-0400 Mean blood pressure 95 mm[Hg] Ronobir JESSICA [facility] 11-02-2022 11:51-0400 Respiratory rate 18 /min Ronobir JESSICA [facility] 11-02-2022 03:50-0400 Heart rate 68 /min Ronobir JESSICA [facility] 11-02-2022 03:18-0400 Respiratory rate 10 /min Ronobir JESSICA [facility] 11-02-2022 02:38-0400 Nursing Progress Note Reason Other: pt complains of back pain. repositioned in bed. medicated for pain. Ronobir JESSICA [facility] 11-02-2022 02:38-0400 Respiratory rate 7 /min Ronobir JESSICA [facility] 11-02-2022 02:37-0400 Heart rate 73 /min Ronobir JESSICA [facility] 11-01-2022 23:15-0400 Nursing Progress Note Reason Other: trauma made medical at this time. mini cath done and urine sent to lab. pt repositioned in bed Ronobir JESSICA [facility] 11-01-2022 22:53-0400 Body temperature 96.62 [degF] Ronobir JESSICA [facility] 11-01-2022 22:53-0400 Heart rate 74 /min Ronobir JESSICA [facility] 11-01-2022 22:03-0400 Heart rate 69 /min Ronobir JESSICA [facility] 08-01-2022 13:00-0400 Blood Pressure Location [facility] 08-01-2022 13:00-0400 Body temperature 98.6 [degF] [facility] 08-01-2022 13:00-0400 Diastolic blood pressure 84 mm[Hg] [facility] 08-01-2022 13:00-0400 Heart rate 76 /min [facility] 08-01-2022 13:00-0400 Mean blood pressure 101 mm[Hg] [facility]-01-[facility]22 13:00-0400 Respiratory rate 16 /min [facility] 08-01-2022 13:00-0400 SaO2% (BldA) [Mass fraction] 97 % [facility] 08-01-2022 13:00-0400 Systolic blood pressure 136 mm[Hg] [facility] 06-06-2022 12:59-0500 Heart rate 61 /min [facility] 06-06-2022 12:59-0500 SaO2% (BldA) [Mass fraction] 98 % [facility] 06-06-2022 12:59-0500 Respiratory rate 16 /min [facility] 06-06-2022 12:59-0500 Body temperature 97.7 [degF] [facility] 06-06-2022 12:58-0500 Diastolic blood pressure 106 mm[Hg] [facility] 06-06-2022 12:58-0500 Mean blood pressure 116 mm[Hg] [facility] 06-06-2022 12:58-0500 Systolic blood pressure 137 mm[Hg] [facility] 03-28-2022 14:10-0500 Heart rate 66 /min [facility] 03-28-2022 14:10-0500 SaO2% (BldA) [Mass fraction] 96 % [facility] 03-28-2022 14:09-0500 Body temperature 98.42 [degF] [facility] 03-28-2022 14:09-0500 Diastolic blood pressure 77 mm[Hg] [facility] 03-28-2022 14:09-0500 Mean blood pressure 93 mm[Hg] [facility] 03-28-2022 14:09-0500 Systolic blood pressure 127 mm[Hg] [facility] 03-28-2022 14:09-0500 Blood Pressure Location [facility] 03-28-2022 14:09-0500 Body temperature 98.42 [degF] [facility] 03-28-2022 14:09-0500 Mean blood pressure 94 mm[Hg] [facility] 03-28-2022 14:09-0500 Respiratory rate 18 /min [facility] 01-18-2022 14:13-0400 Blood Pressure Location [facility] 01-18-2022 14:13-0400 Body temperature 98.06 [degF] [facility] 01-18-2022 14:13-0400 BP/Pulse Patient Position [facility] 01-18-2022 14:13-0400 Diastolic blood pressure 82 mm[Hg] Senthil Caldera [facility] 01-18-2022 14:13-0400 Heart rate 59 /min Senthilleopoldo Caldera [facility] 01-18-2022 14:13-0400 Mean blood pressure 98 mm[Hg] Senthil Caldera [facility] 01-18-2022 14:13-0400 Respiratory rate 16 /min Senthil Caldera [facility] 01-18-2022 14:13-0400 SaO2% (BldA) [Mass fraction] 98 % Senthilleopoldo Caldera [facility] 01-18-2022 14:13-0400 Systolic blood pressure 131 mm[Hg] Senthilleopoldo Caldera [facility] 12-21-2021 13:34-0400 Blood Pressure Location Nohemi FelizPwinty [facility] 12-21-2021 13:34-0400 Body temperature 98.6 [degF] Nohemi [employer] [facility] 12-21-2021 13:34-0400 BP/Pulse Patient Position Nohemi [employer] [facility] 12-21-2021 13:34-0400 Diastolic blood pressure 85 mm[Hg] Nohemi Garcia [facility] 12-21-2021 13:34-0400 Heart rate 67 /min Nohemi [employer] [facility] 12-21-2021 13:34-0400 Mean blood pressure 101 mm[Hg] Nohemi [employer] [facility] 12-21-2021 13:34-0400 Respiratory rate 18 /min Nohemi [employer] [facility] 12-21-2021 13:34-0400 SaO2% (BldA) [Mass fraction] 93 % Nohemi [employer] [facility] 12-21-2021 13:34-0400 Systolic blood pressure 132 mm[Hg] Nohemi Garcia [facility] 12-21-2021 13:34-0400 Mean blood pressure 101 mm[Hg] Nohemi Garcia [facility] 11-30-2021 13:16-0400 Body temperature 98.24 [degF] [facility] 11-30-2021 13:16-0400 Diastolic blood pressure 79 mm[Hg] [facility] 11-30-2021 13:16-0400 Heart rate 78 /min [facility] 11-30-2021 13:16-0400 Mean blood pressure 98 mm[Hg] [facility] 11-30-2021 13:16-0400 SaO2% (BldA) [Mass fraction] 96 % [facility] 11-30-2021 13:16-0400 Systolic blood pressure 136 mm[Hg] [facility] 11-30-2021 13:00-0400 Blood Pressure Location [facility] 11-30-2021 13:00-0400 Respiratory rate 16 /min [facility] 11-02-2021 11:53-0400 Blood Pressure Location Nohemi Garcia [facility] 11-02-2021 11:53-0400 Body temperature 98.06 [degF] Nohemi Garcia [facility] 11-02-2021 11:53-0400 BP/Pulse Patient Position Nohemi Garcia [facility] 11-02-2021 11:53-0400 Diastolic blood pressure 64 mm[Hg] Nohemi Garcia [facility] 11-02-2021 11:53-0400 Heart rate 64 /min Nohemi Garcia [facility] 11-02-2021 11:53-0400 Mean blood pressure 89 mm[Hg] Nohemi Garcia [facility] 11-02-2021 11:53-0400 Respiratory rate 17 /min Nohemi Garcia [facility] 11-02-2021 11:53-0400 SaO2% (BldA) [Mass fraction] 97 % Nohemi Garcia [facility] 11-02-2021 11:53-0400 Systolic blood pressure 140 mm[Hg] Nohemi Garcia [facility] 10-05-2021 13:46-0400 Body temperature 98.42 [degF] [facility] 10-05-2021 13:46-0400 Diastolic blood pressure 83 mm[Hg] [facility] 10-05-2021 13:46-0400 Heart rate 69 /min [facility] 10-05-2021 13:46-0400 Mean blood pressure 104 mm[Hg] [facility] 10-05-2021 13:46-0400 SaO2% (BldA) [Mass fraction] 96 % [facility] 10-05-2021 13:46-0400 Systolic blood pressure 146 mm[Hg] [facility] 09-07-2021 12:48-0400 Body temperature 98.6 [degF] [facility] 09-07-2021 12:48-0400 Diastolic blood pressure 70 mm[Hg] [facility] 09-07-2021 12:48-0400 Heart rate 72 /min [facility] 09-07-2021 12:48-0400 Mean blood pressure 83 mm[Hg] Senthil Caldera [facility] 09-07-2021 12:48-0400 SaO2% (BldA) [Mass fraction] 96 % Senthilleopoldo Caldera [facility] 09-07-2021 12:48-0400 Systolic blood pressure 109 mm[Hg] Senthil Caldera [facility] 09-07-2021 12:00-0400 Heart rate 69 /min Senthil Caldera [facility] 09-07-2021 12:00-0400 SaO2% (BldA) [Mass fraction] 98 % Senthil Caldera [facility] 09-03-2021 00:20-0400 Body temperature 98.78 [degF] Carlos Martin [facility] 09-03-2021 00:20-0400 Diastolic blood pressure 80 mm[Hg] Carlos Martin [facility] 09-03-2021 00:20-0400 Heart rate 86 /min Carlos Martin [facility] 09-03-2021 00:20-0400 Respiratory rate 16 /min Carlos Martin [facility] 09-03-2021 00:20-0400 SaO2% (BldA) [Mass fraction] 95 % Carlos Martin [facility] 09-03-2021 00:20-0400 Systolic blood pressure 146 mm[Hg] Carlos Martin [facility] 08-10-2021 12:35-0400 Body temperature 98.06 [degF] Rickey Askew [facility] 08-10-2021 12:35-0400 Diastolic blood pressure 72 mm[Hg] Rickey Askew [facility] 08-10-2021 12:35-0400 Heart rate 77 /min Rickey Askew [facility] 08-10-2021 12:35-0400 Mean blood pressure 84 mm[Hg] Rickey Askew [facility] 08-10-2021 12:35-0400 Respiratory rate 12 /min Rickey Askew [facility] 08-10-2021 12:35-0400 SaO2% (BldA) [Mass fraction] 97 % Rickey Askew [facility] 08-10-2021 12:35-0400 Systolic blood pressure 108 mm[Hg] Rickey Askew [facility] 07-26-2021 10:27-0400 Body temperature 97.88 [degF] [facility] 07-26-2021 10:27-0400 Diastolic blood pressure 84 mm[Hg] [facility] 07-26-2021 10:27-0400 Heart rate 59 /min [facility] 07-26-2021 10:27-0400 Mean blood pressure 112 mm[Hg] [facility] 07-26-2021 10:27-0400 SaO2% (BldA) [Mass fraction] 97 % [facility] 07-26-2021 10:27-0400 Systolic blood pressure 169 mm[Hg] [facility]enthil [facility] 07-26-2021 10:00-0400 Respiratory rate 16 /min [facility] 07-18-2021 12:18-0400 Body temperature 97.7 [degF] [facility]il [facility] 07-18-2021 12:18-0400 Diastolic blood pressure 83 mm[Hg] [facility] 07-18-2021 12:18-0400 Heart rate 60 /min [facility] 07-18-2021 12:18-0400 Mean blood pressure 106 mm[Hg] Senthil Caldera [facility] 07-18-2021 12:18-0400 SaO2% (BldA) [Mass fraction] 98 % Senthil Caldera [facility] 07-18-2021 12:18-0400 Systolic blood pressure 152 mm[Hg] Senthil Caldera [facility] 07-18-2021 12:00-0400 Respiratory rate 16 /min Senthil Caldera [facility] 07-11-2021 10:20-0400 Body temperature 97.7 [degF] Gavino TABOR [facility] [place] Encounters Encounter Date Encounter Type Care Provider Facility Start: 06-12-2023 End: 06-13-2023 ambulatory Senthilleopoldo Interianoflaquito Facility:[facility] Start: 06-12-2023 End: 06-12-2023 Patient encounter procedure Senthilleopoldo Caldera [facility] Start: 06-05-2023 Clinisync Result Encounter Mary Rodriguez MD Work Phone: [facility] Unsolicited Start: 06-05-2023 Clinisync Result Encounter Mary Rodriguez MD Work Phone: [facility] Unsolicited Start: 05-31-2023 External Result Encounter Senthil Caldera DO Work Phone: [facility] Unsolicited Start: 05-31-2023 External Result Encounter Senthil Caldera DO Work Phone: [facility] Unsolicited Start: 05-31-2023 End: 05-31-2023 ambulatory Mary Rodriguez Facility:[facility] Start: 05-31-2023 End: 05-31-2023 ambulatory MD aMry Rodriguez Work Phone: [facility] Work Phone: Start: 05-31-2023 End: 05-31-2023 Patient encounter procedure MD Mary Rodriguez Work Phone: [facility] Work Phone: Start: 05-24-2023 Clinisync Result Encounter Mary Rodriguez MD Work Phone: [facility] Unsolicited Start: 05-24-2023 Clinisync Result Encounter Mary Rodriguez MD Work Phone: [facility] Unsolicited Start: 05-01-2023 End: 05-02-2023 ambulatory Senthil Caldera Facility:[facility] Start: 05-01-2023 End: 05-01-2023 Patient encounter procedure Senthil Caldera [facility] Start: 01-30-2023 End: 01-31-2023 ambulatory Senthil Caldera Facility:[facility] Start: 01-30-2023 End: 01-30-2023 Patient encounter procedure Senthil Caldera [facility] Start: 12-20-2022 End: 12-23-2022 Evaluation and management of inpatient Zaheer ZapataAspen Sloan Facility:[facility] Start: 12-20-2022 End: 12-23-2022 Evaluation and management of inpatient Nic TomlinSHARONSAMANTHA [facility] Start: 12-19-2022 End: 12-20-2022 Emergency department patient visit David Tong Facility:[facility] Start: 12-19-2022 End: 12-20-2022 Emergency department patient visit David Tong [facility] Start: 12-17-2022 End: 12-17-2022 Emergency department patient visit Jeffery Katherine Facility:[facility] Start: 12-17-2022 End: 12-17-2022 Emergency department patient visit Jeffery Murphy [facility] Start: 12-14-2022 End: 12-15-2022 ambulatory Sammy QUEZADA Facility:CD:[id number] Start: 12-14-2022 End: 12-14-2022 Manual pelvic examination [facility] Start: 12-05-2022 ambulatory Lorie Wright y:CD:[id number] Start: 11-16-2022 End: 12-16-2022 ambulatory Senthil Caldera Facility:CD:[id number] Start: 11-16-2022 End: 12-16-2022 In-Between Visit Rickey [facility]ke[facility] Start: 11-06-2022 End: 11-07-2022 ambulatory Sammy QUEZADA Facility:CD:[id number] Start: 11-06-2022 End: 11-06-2022 Off-Site Sammy [facility] Start: 11-04-2022 End: 12-15-2022 ambulatory Sammy QUEZADA Facility:[facility] Start: 11-01-2022 End: 11-04-2022 ambulatory Codiefilippo Jimenezcarterroman Facility:[facility] Start: 11-01-2022 End: 11-04-2022 Observation Mariia LOPEZ [facility] Start: 09-27-2022 End: 09-28-2022 ambulatory Nohemi Garcia Facility:[facility] Start: 09-25-2022 End: 09-26-2022 ambulatory Senthil Caldera Facility:[facility] Start: 09-25-2022 End: 09-25-2022 Patient encounter procedure Senthil Caldera [facility] Start: 09-08-2022 End: 09-08-2022 Emergency department patient visit Pedro Nava Facility:[facility] Start: 09-08-2022 End: 09-09-2022 ambulatory Senthil Caldera Facility:[facility] Start: 08-01-2022 End: 08-02-2022 ambulatory Senthil Caldera Facility:[facility] Start: 08-01-2022 End: 08-01-2022 Patient encounter procedure Senthil Caldera [facility] Start: 07-30-2022 End: 07-31-2022 ambulatory Senthil Caldera Facility:[facility] Start: 07-30-2022 End: 07-30-2022 Patient encounter procedure Senthil Caldera [facility] Start: 07-25-2022 End: 10-24-2022 ambulatory Senthil Caldera Facility:[facility] Start: 07-25-2022 End: 10-23-2022 Recurring Senthil Caldera [facility] Start: 07-09-2022 End: 07-10-2022 ambulatory Senthil Caldera Facility:[facility] Start: 07-09-2022 End: 07-09-2022 Patient encounter procedure Senthil Caldera [facility] Start: 06-06-2022 End: 06-06-2022 Patient encounter procedure Senthil Caldera [facility] Start: 03-28-2022 End: 03-28-2022 Patient encounter procedure Senthil Caldera [facility] Start: 03-17-2022 End: 06-17-2022 Recurring Nohemi Gerard Radha [facility] Start: 01-18-2022 End: 01-18-2022 Patient encounter procedure Senthil Caldera [facility] Start: 01-02-2022 End: 09-03-2022 Recurring Senthil Caldera [facility] Start: 12-26-2021 End: 12-26-2021 Patient encounter procedure Senthil Caldera [facility] Start: 12-21-2021 End: 12-21-2021 Patient encounter procedure Nohemi Garcia [facility] Start: 11-30-2021 End: 11-30-2021 Patient encounter procedure Senthil Caldera [facility] Start: 11-27-2021 End: 11-27-2021 Patient encounter procedure Senthil Caldera [facility] Start: 11-25-2021 End: 02-23-2022 Recurring Nohemi Garcia [facility] Start: 11-02-2021 End: 11-02-2021 Patient encounter procedure Nohemi Garcia [facility] Start: 11-01-2021 End: 11-01-2021 Patient encounter procedure Senthil Caldera [facility] Start: 10-05-2021 End: 10-05-2021 Patient encounter procedure Senthil Caldera [facility] Start: 10-02-2021 End: 10-02-2021 Patient encounter procedure Senthil Caldera [facility] Start: 09-07-2021 End: 09-07-2021 Patient encounter procedure Senthil Caldera [facility] Start: 09-03-2021 End: 09-03-2021 Emergency department patient visit Carlos Salazar [facility] Start: 08-21-2021 End: 08-21-2021 Patient encounter procedure Senthil Caldera [facility] Start: 08-21-2021 End: 08-21-2021 Patient encounter procedure Senthil Caldera [facility] Start: 08-10-2021 End: 08-10-2021 Patient encounter procedure Rickey Lynn Askew [facility] Start: 08-07-2021 End: 08-07-2021 Patient encounter procedure Senthil Caldera [facility] Start: 07-26-2021 End: 07-26-2021 Patient encounter procedure Senthil Caldera [facility] Start: 07-26-2021 End: 07-26-2021 Patient encounter procedure Senthil Caldera [facility] Start: 07-25-2021 End: 08-18-2021 Pre-admission assessment Gavino TABOR [facility] Start: 07-18-2021 End: 07-18-2021 Patient encounter procedure Senthil Caldera [facility] Start: 07-11-2021 End: 07-11-2021 Patient encounter procedure Gavino TABOR [facility] [place] Procedures Date Procedure Procedure Detail Performing Clinician [...] Screening for malign ant neoplasm of colon [facility] Start: 01-24-2023 Hemoglobin A1c measurement Diabetes: Hemoglobin A1C [facility] Start: 12-21-2022 Influenza vaccination Influenza Vacc ine (#1) [facility] Start: 09-13-2022 Medicare Annual Well ness (AWV) Medicare Annual Wellness (AWV) [facility] Start: 07-09-1959 Glaucoma screening Diabetes: R etinopathy Screening [facility] Start: 1950 Screening for malign ant neoplasm of colon [facility] Immunizations Immunization Date Immunization Notes Care Provider Fa cility 02-13-2021 Influenza, High-dose Seasonal, Quadrivalent, Preservative Free Mary Rodriguez MD Work Phone: [facility] 02-13-2021 influenza virus vaccine, unspecified formulation Mary Rodriguez MD Work Phone: [facility] 01-20-2021 influenza virus vaccine, unspecified formulation Gavino TABOR [facility] [place] 05-22-2019 influenza, high dose seasonal, preservative-free Mary Rodriguez MD Work Phone: [facility] 03-19-2018 influenza, high dose seasonal, preservative-free Mary Rodriguez MD Work Phone: [facility] 04-12-2017 influenza, high dose seasonal, preservative-free Mary Rodriguez MD Work Phone: [facility] 04-12-2017 pneumococcal conjuga te vaccine, 13 valent Mary Rodriguez MD Work Phone: [facility] Payers Date Payer Category Payer Self-pay 2023 Medicaid [id number] 2022 Medicare [id number] 2022 Unknown [employer] [id number] 2022-Present [address] [place] [address] [id number] 2021 Private Health Insurance [id number] 1950 Unknown [id number] 2.16.840.1.761486.3.579.2.7 27 1949 Unknown [id number] 2.16.840.1.099622.3.579.2.7 27 1949 Unknown [id number] 2.16.840.1.029345.3.579.2.7 27 1949 Unknown [id number] 2.16.840.1.878367.3.579.2.7 27 1949 Unknown [id number] 2.16.840.1.053640.3.579.2.7 27 1949 Unknown [id number] 2.16.840.1.196993.3.579.2.7 27 1949 Unknown [id number] 2.16.840.1.426494.3.579.2.7 27 1949 Unknown [id number] 2.16.840.1.449080.3.579.2.7 27 1949 Unknown [id number] 2.16.840.1.313757.3.579.2.7 27 1949 Unknown [id number] 2.16.840.1.702742.3.579.2.7 27 1949 Unknown [id number] 2.16.840.1.861470.3.579.2.7 27 1949 Unknown [id number] 2.16.840.1.507728.3.579.2.7 27 1949 Unknown [id number] 2.16.840.1.958052.3.579.2.7 27 1949 Unknown [id number] 2.16.840.1.686334.3.579.2.7 27 1949 Unknown [id number] 2.16.840.1.628655.3.579.2.7 27 1949 Unknown [id number] 2.16.840.1.422346.3.579.2.7 27 1949 Unknown [id number] 2.16.840.1.148361.3.579.2.7 27 1949 Unknown [id number] 2.16.840.1.054360.3.579.2.7 27 1949 Unknown [id number] 2.16.840.1.755730.3.579.2.7 27 1949 Unknown [id number] 2.16.840.1.713257.3.579.2.7 27 Medicare Medicare [id number] Unknown [id number] 2.16.840.1.224232.3.579.2.5 31 Social History Date Type Detail Facility Start: 07-04-2021 End: 09-19-2022 Tobacco smoking status [facility]finding[facility] status Never [facility] Start: 10-24-2022 Sex Assigned At Female F [facility] Start: 09-19-2022 Tobacco use and exposure Smokeless tobacco non-user [facility] Start: 10-24-2022 History of Social function [facility] Start: 1950 Sex Assigned At Not on file [facility] Start: 1950 Sex Assigned At Female F [facility] Functional Status Date Assessment Result Facility 12-20-2022 Functional Status No [facility] 12-20-2022 Functional Status [facility] 12-19-2022 Functional Status N/A [facility] 12-17-2022 Functional Status N/A [facility] 11-02-2022 Functional Status N/A [facility] 11-01-2022 Functional Status [facility] Clinical Notes 07-11-2021 to 06-12-2023 Note [...] high-protein foods. Preparing meals Add whole milk, qsdm-kbo-hesv, or heavy cream to cereal, pudding, soup, [...] potatoes. Grains Pasta. Quick breads. Muffins. Pancakes. Fcqzy-io-lyx cereal. Meats and other proteins Peanut butter. [...] provider. Document Revised: 03/12/2021 Document Reviewed: 03/12/2021 Decision Lens Patient Education 2022 [employer]. 06/12/2023 11:25:57 Breast Cancer, Female Breast Cancer, [...] cancer. Follow these instructions at home: Take gizj-pdg-xihqjtp and prescription medicines only as told by [...] is important. Where to find more information [employer]: www.cancer.org National Cancer Babb: www.cancer.gov Contact a health care provider if: [...] provider. Document Revised: 02/26/2022 Document Reviewed: 02/26/2022 Decision Lens Patient Education 2022 [employer]. 06/12/2023 11:25:02 Fall Prevention in the Home, Adult, Hqnu-bj-Lvgo Fall Prevention in the Home, Adult Falls [...] Keep items that you use often in ilar-at-oqpam places. Lower the shelves around your home [...] of the way. Do not use floor angolan or wax that makes floors slippery. What [...] for Disease Control and PreventionELIO: www.cdc.gov National Babb on Aging: www.derrick.nih.gov Contact a doctor if: [...] provider. Document Revised: 01/08/2022 Document Reviewed: 11/09/2020 Decision Lens Patient Education 2022 [employer]. Follow Up Care 05/01/2023 15:02:18 With:Senthil Caldera DO, ONC Address: [facility] [place] [address] [phone] Fax Business (1) When: Unknown Comments:cbc, cmp, iron studies, b12, foalte, epo [id number] monthly. f/u in 3 months. change arimidex to exemestane 25mg daily. pet/ct prior to f/u.make sure images from pet from may and august are both in our system for review at f/u in august. [facility] 01-30-2023 Hospital Discharg e instructions Follow Up Care 01/30/2023 15:16:04 With:Senthil Caldera Address: [facility] [place] [address]- [phone] Fax Business (1) When: Unknown Comments:f/u in 6 wks. pet/ct in [facility] soon. f/u after. cbc, cmp, iron studies, b12, foalte, epo, [id number] prior to f/u. [facility] 12-23-2022 Evaluation + Plan note Extrac yajaira from: Title:Discharge Note Author:Zaheer Sloan DO Date:12/23/22 Discharge To, Anticipated II - Long-Term Unit Transported by, Anticipated - Wheelchair van [...] When Contact Information Azar HANKS, Rickey Lynn, [facility] [address] [place] [address]- Additional Instructions: Antibiotic Medicine, Adult, Admd-md-Hwks Extracted from: Title:APSO Note Author:Zaheer Sloan DO [...] history of malignant neoplasm of breast) Continue kisqursula Patient follows with Dr. Hernandez as outpatient [...] Ordered: Initial Hospital Care/Day Moderate 55 Minutes [id number] Sbsq Hospital Care/Day Straight Fwd 25 Minutes 53546 2. Age-related cognitive decline (R41.81: Age-related cognitive decline) PT/OT Monitor labs IV fluids Likely will need placement as it was already attempted by nurse at Dr. Askew's office 3. History of breast cancer (Z85.3: Personal history of malignant neoplasm of breast) Continue kisqursula Patient follows with Dr. 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 Age-related cognitive decline (R41.81: Age-related cognitive [...] Panel 10/25/22 * Comprehensive Metabolic Panel 11/22/22 [facility]09-03-[facility] NoteSt. Rita'S HospitalComment on above:Result Comment: Electronically Signed By: Zaheer Sloan DO\.br\Date and Time Signed: 12/23/22 09:49 [id number] Hospital Discharge instructions Patient Education 12/23/2022 09:48:15 Antibiotic Medicine, Adult, Yuce-yk-Roar Antibiotic Medicine, Adult Antibiotic medicines treat infections [...] medicine. Follow these instructions at home: Take plee-eep-orcdssu and prescription medicines as told by your [...] provider. Document Revised: 01/26/2020 Document Reviewed: 01/26/2020 Decision Lens Patient Education 2022 [employer]. Follow Up Care 12/20/2022 15:04:36 With:Azar HANKS, NIKOLE Benedict Address: [address] [place] [address]- When: Unknown [facility]08-31-2023 NoteFishThomas B. Finan CenterComment on above:Result Comment: Electronically Signed By: Zaheer Sloan DO\.br\Date and Time Signed: 12/20/22 19:18 [id number] Evaluation + Plan note Extracted from: Title:ED Note Author:David Tong MD Date: 1. Generalized weakness (R53 .1: Weakness) 2. Frequent falls (R29.6: Repeated falls) 3. Anemia (D64.9: Anemia, unspecified) 4. Dehydration (E86.0: Dehydration) 5. Urinary tract infection (N39.0: Urinary tract infection, site not specified) Orders: cephalexin, 500 mg = 1 cap(s), Oral, QID, X 7 day(s), # 28 cap(s), Refills(s) 0, Pharmacy: [id number], 167.6, cm, 12/19/22 20:43:00 EDT, Height/Length [...] Panel 10/25/22 * Comprehensive Metabolic Panel 11/22/22 [facility]08-31-2023 Hospital Discharge instructions Patient Education 12/20/2022 00:37:19 Urinary Tract Infection, Adult, Nhdx-ih-Fykc Urinary Tract Infection, Adult A urinary tract [...] Follow these instructions at home: Medicines Take iahb-wka-hgblghd and prescription medicines only as told by [...] provider. Document Revised: 11/18/2020 Document Reviewed: 11/18/2020 Decision Lens Patient Education 2022 [employer]. 12/20/2022 00:37:19 Anemia Anemia Anemia is a [...] spleen. Follow these instructions at home: Take tssx-fuy-pkkntty and prescription medicines only as told by [...] provider. Document Revised: 02/20/2022 Document Reviewed: 03/15/2020 Decision Lens Patient Education 2022 [employer]. 12/20/2022 00:37:19 Dehydration, Adult, Uuva-im-Argt Dehydration, Adult Dehydration is condition in which [...] of fat or sugar. General instructions Take lwus-tog-epuqiqy and prescription medicines only as told by [...] start slowly drinking other clear fluids. Take lwjg-cak-zjbnoqo and prescription medicines only as told by your doctor. Get help right away if you have any symptoms of very bad dehydration. This information is not intended to replace advice given to you by your health care provider. Make sure you discuss any questions you have with your health care provider. Document Revised: 11/19/2019 Document Reviewed: 11/19/2019 Decision Lens Patient Education 2022 [employer]. Follow Up Care 12/19/2022 20:39:35 With:Rickey Askew Address: [address] [place] [phone] Business (1) When:12/21/2022 [facility]08-28-2023 Hospital Discharge instructions Patient Education 12/17/2022 13:33:49 [...] Follow these instructions at home: Medicines Take fnas-zps-sacnlrd and prescription medicines only as told by [...] as fried or sweet foods. ?Take an gxuw-zzh-zmptckp or prescription medicine for constipation. If you [...] provider. Document Revised: 02/05/2022 Document Reviewed: 02/05/2022 Decision Lens Patient Education 2022 [employer]elly. Follow Up Care 12/17/2022 10:20:15 With:JOSÉ ANTONIO VARGAS Address: [address] [address]- Business (1) When:12/20/2022 12:53:13 With:Gavino Erickson Address: [address] [place] [address]- Business (1) When:12/20/2022 12:52:03 With:Rickey Askew Address: [address] [place] [address]- Business (1) When:12/20/2022 12:51:59 [facility]08-28-2023 Evaluation + Plan noteExtracted from: Title:ED Note Author:Gui Scruggs PA-C te:12/17/22 Fall (W19.XXXA: Unspecified fall, initial encounter) Lumbar compression fracture (S32.000A: Wedge compression fracture of unspecified lumbar vertebra, initial encounter for closed fracture) Ordered: oxycodone, 5 mg = 1 tab(s), Oral, q6hr, X 3 day(s), # 15 tab(s), Refills(s) 0, Pharmacy: [id number], 168, cm, 12/17/22 10:29:00 EDT, Height/Length [...] Panel 10/25/22 * Comprehensive Metabolic Panel 11/22/22 [facility]07-16-2023 NoteReneer [facility] CenterComment on above:Result Comment: Electronically Signed By: Trevor HANKS, Ahmad\.br\Date and Time Signed: 11/04/22 12:37 [id number] Hospital Discharge instructions Patient Education 11/04/2022 12:28:31 [...] Consider working with a physical therapist or senior technical trainer who can develop an exercise plan to help you gain muscle strength. General instructions Take qyki-uki-gecbznc and prescription medicines only as told by [...] provider. Document Revised: 03/11/2022 Document Reviewed: 03/11/2022 Decision Lens Patient Education 2022 [employer]elly. Follow Up Care 11/01/2022 19:54:24 With:Hollis MERRILL Address: [address] [address] Business (1) When: Unknown Comments:Urinary retnetion w/dooley With:Gavino Erickson Address: [address] [place] [address]- Business (1) When: Unknown Comments:Call for followup appointment in 4 weeks for repeat pelvis xray With:Rickey Askew Address: [address] [place] [address]- Business (1) When: Unknown [facility]07-16-2023 Evaluation + Plan noteExtracted from: Title:Discharge Note Author:Trevor HANKS, Wyatt Lynn ate:11/04/22 Stable Discharge To, Anticipated II - Long-Term Unit Discharged to - [facility] unit Discharge Diet(s): Regular (11/02/22 15:25:00) Prescriptions anastrozole 1 mg Tab, 1 mg= 1 tab(s), Oral, Daily, 11 refills Arimidex 1 mg Tab, 1 mg= 1 tab(s), Oral, Daily, 3 refills ergocalciferol 50,000 intl units Cap, 62946 International_Unit= 1 cap(s), Oral, q7day Kisqali (200 [...] bedtime) With When Contact Information Gavino Erickson [address] [place], [place] [phone] [employer]Cloud (1) Additional Instructions: Call for followup appointment in 4 weeks for repeat pelvis xray Rickey Askew In [address] [place] [phone] Business (1) Additional Instructions: Addendum by Trevor HANKS, [facility] ad on November 04, 2022 [...] deep vein thrombosis (DVT) prophylaxis (Z79.899: Other technician terminal and repeater (current) drug therapy) SCD, enoxaparin Orders: acetaminophen, [...] Panel 10/25/22 * Comprehensive Metabolic Panel 11/22/22 [facility]07-14-2023 NotePT Evaluation done this date. Pt. with 12/13 on AM-PAC this date. She is very resistant to movement due to pain. She is unable to stand even with attempts of max A. [facility] benefit [facility] SNF.[facility]07-14-2023 NoteFishThomas B. Finan CenterComment on above: Result Comment: Electronically Signed By: Mariia LOPEZ DO\nia\Date and Time Signed: 11/02/22 01:35 [id number] Hospital Discharge instructions Follow Up Care 09/27/2022 14:06:46 With:Senthil Caldera Address: [facility] [address] [place] [phone] Fax Business (1) When: Unknown Comments:f/u in 3 months. pet/ct prior to f/u. cont arimidex and kisquali. cbc, cmp and [id number] monthly. [facility]02-15-2023 Hospital Discharge instructions Follow Up Care 06/06/2022 13:40:28 With:Senthil Caldera Address: [place] [id number] [phone] Fax Business (1) When: Unknown Comments:cbc, cmp, [id number] in 4 weeks and prior to f/u in 8 weeks. f/u with dairy grazer. iron studies, b12, folate with next labs. [facility]12-07-2022 Hospital Discharge instructions Follow Up Care 03/28/2022 14:49:31 With:Senthil Caldera Address: [address] [phone] Fax Business (1) When: Unknown Comments:f/u in 2 months. pet/ct prior to f/ucbc, cmp, [id number], every 6 weeks. [facility]09-29-2022 Hospital Discharge instructions Follow Up Care 01/18/2022 14:52:57 With:Senthil Caldera Address: [address] [phone] Fax Business (1) When: Unknown Comments:raise kisquali to 400mg for 3wks on and 1 week off. f/u with or anthony in 2 months. cbc, cmp, [id number] prior to f/ucbc, cmp monthly onthis medicaztion cont arimidex. [facility]09-01-2022 Hospital Discharge instructions Follow Up Care 12/21/2021 14:19:38 With:Senthil Caldera Address: [address] [phone] Fax Business (1) When: Unknown Comments:continue Kisqali 200mg 3wks on, 1wk offcbc, cmp in 4wks and 8wksPET scan in Novfollow-up in 8wks with Dr. Hernandez after PET scan [facility]08-11-2022 Hospital Discharge instructions Follow Up Care 11/30/2021 13:55:25 With:Senthil Caldera Address: [address] [address]- [phone] Fax Business (1) When: Unknown Comments:re-start kisqali at 200mg daily x 3 weeks, then 1 week offcmp weekly x 4wksfollow-up with Dr. Hernandez in 4wkscbc, cmp at follow-up [facility]07-14-2022 Hospital Discharge instructions Follow Up Care 11/02/2021 12:27:30 With:Senthil Caldera Address: [address] [place] [address] [phone] Fax Business (1) When: Unknown Comments:cont arimidex. Hold kisquali for 3 wks, recheck cbc, cmp, prior to f/u. hold lasix. Send this note to Dr. Kofi sumner. [facility]06-16-2022 Hospital Discharge instructions Follow Up Care 10/05/2021 14:21:47 With:Senthil Caldera Address: [place] [id number]- [phone] Fax Business (1) When: Unknown Comments:continue kisqalifollow-up in 1mocbc, cmp at follow-up [facility]05-19-2022 Hospital Discharge instructions Follow Up Care 09/07/2021 13:41:37 With:Senthil Caldera Address: [address] [address]- [phone] Fax Business (1) When: Unknown Comments:continue Kisqali follow-up in 1 mocbc, cmp, [id number] at follow-up [facility]05-15-2022 Evaluation + Plan noteExtracted from: Title:ED Note [...] Location:FT.ONCOLOGY Appointment Type:ONC Office Visit 15 (FT) [facility]05-15-2022 Hospital Discharge instructions Patient Education 09/03/2021 00:46:59 [...] instructions at home: Medicines Take and apply xulo-zff-emsvmmm and prescription medicines only as told by [...] what causes your hives. Take and apply mloa-hyg-nzasktd and prescription medicines only as told by your health care provider. Keep all follow-up visits as told by your health care provider. This is important. This information is not intended to replace advice given to you by your health care provider. Make sure you discuss any questions you have with your health care provider. Document Released: 04/08/2006 Document Revised: 10/22/2018 Document Reviewed: 10/22/2018 [employer] Patient Education 2020 [employer]. Follow Up Care 09/03/2021 00:14:38 With:Rickey Askew Address: [address] [place] [phone] Business (1) When:Within 3 Day(s) [facility]04-21-2022 Hospital Discharge instructions Follow Up Care 08/10/2021 13:38:09 With:Nohemi Garcia Address: [address] [place] [address] [phone] Business (1) When: Unknown Comments:f/u 1 monthcont ivette.cbc, cmp, [id number] at f/u. With:Senthil Caldera Address[address] [facility] [place] [address] [phone] Fax Business (1) When: Unknown [facility]04-05-2022 Hospital Discharge instructions Follow Up Care 07/25/2021 15:46:11 With:Senthil Caldera Address: [place] [address] [place] [address] [phone] Fax Business (1) When: Unknown Comments:f/u in 2 wks, cbc, cmp, [id number] at f/u. [facility]03-22-2022 Hospital Discharge instructions Follow Up Care 07/11/2021 14:05:16 With:Senthil Caldera Address: [place] [address] [place] [address] [phone] Fax Business (1) When: Unknown Comments:echo and port sooni will call Dr. Tabor. f/u with me in 2 wks plan AC. Cbc, cmp, ceapet/ct prior to f/u. [facility]ments Appointment Date:07/18/2021 12:00:00 PM Scheduled Provider:Senthil Caldera DO [facility]C Office Visit New 45 (FT) [facility] [place] Evaluation + Plan note Future Appointments Appointment Date:08/08/2021 10:00:00 AM Scheduled Provider: Location:.ULTRASOUND Appointment Type:US Breast (FT) Appointment Date:08/09/2021 10:30:00 AM Scheduled Provider: Location:[facility] Appointment Type:Surgical PAT FT Appointment Date:08/10/2021 12:30:00 PM Scheduled Provider:Senthil Caldera DO Location:.ONCOLOGY Appointment Type:ONC Office Visit 15 (FT) Appointment Date:08/17/2021 08:00:00 AM Scheduled Provider: Location:[facility] Appointment Type:Surgery FT Appointment Date:08/22/2021 10:20:00 AM Scheduled Provider:Gavino TABOR MD Location:[facility] Appointment Type:GS Post Op 15 Future Scheduled Tests Laboratory* CA 27 29 08/09/21 * CBC w/ Auto Diff 08/09/21 * CBC w/ Auto Diff 07/26/21 * CEA 07/26/21 * Comprehensive Metabolic Panel 08/09/21 * Comprehensive Metabolic Panel 07/26/21 Radiology* US Perc Biopsy Lymph Node [facility]08/21 [facility]ments Appointment Date:08/10/2021 12:30:00 PM Scheduled Provider:Senthil Caldera DO Location:FT.ONCOLOGY Appointment Type:ONC Office Visit 15 (FT) Diagnostic Tests Pending * CA 27 29 08/07/21 Future Scheduled Tests Laboratory* CBC w/ Auto Diff 07/26/21 * CEA 07/26/21 * Comprehensive Metabolic Panel 07/26/21 [facility]ments Appointment Date:08/10/2021 12:30:00 PM Scheduled Provider:Senthil Caldera DO Location:.ONCOLOGY Appointment Type:ONC Office Visit 15 (FT) Future Scheduled Tests Laboratory* CBC w/ Auto Diff 07/26/21 * CEA 07/26/21 * Comprehensive Metabolic Panel 07/26/21 [facility]ments Appointment Date:09/07/2021 12:30:00 PM Scheduled Provider:Senthil Caldera DO Location:.ONCOLOGY Appointment Type:ONC Office Visit 15 (FT) Future Scheduled Tests Laboratory* CBC w/ Auto Diff 08/24/21 * CEA 08/24/21 * Comprehensive Metabolic Panel 08/24/21 [facility] App[facility]ments Appointment Date:08/21/2021 02:00:00 PM Scheduled Provider: Location:FT.ONCOLOGY Appointment Type:ONC Patient Education - 1hr (FT) Appointment Date:09/07/2021 12:30:00 PM Scheduled Provider:Senthil Caldera DO Location:.ONCOLOGY Appointment Type:ONC Office Visit 15 (FT) Future Scheduled Tests Laboratory* CBC w/ Auto Diff 09/07/21 * CEA 09/07/21 * Comprehensive Metabolic Panel 09/07/21 [facility]ments Appointment Date:09/07/2021 12:30:00 PM Scheduled Provider:Senthil Caldera DO Location:.ONCOLOGY Appointment Type:ONC Office Visit 15 (FT) [facility] Future Appointments Appointment Date:10/05/2021 01:30:00 PM Scheduled Provider:Senthil Caldera DO Location:FT.ONCOLOGY Appointment Type:ONC Office Visit 15 (FT) Future Scheduled Tests Laboratory* CA 27 29 10/08/21 * CBC w/ Auto Diff 10/08/21 * Comprehensive Metabolic Panel 10/08/21 [facility] App[facility]ments Appointment Date:10/05/2021 01:30:00 PM Scheduled Provider:Senthil Caldera DO Location:FT.ONCOLOGY Appointment Type:ONC Office Visit 15 (FT) Diagnostic Tests Pending * CA 27 29 10/02/21 [facility] App[facility]ments Appointment Date:11/02/2021 01:45:00 PM Scheduled Provider:Senthil Caldera DO Location:FT.ONCOLOGY Appointment Type:ONC Office Visit 15 (FT) Future Scheduled Tests Laboratory* CA 27 29 11/02/21 * CBC w/ Auto Diff 11/02/21 * Comprehensive Metabolic Panel 11/02/21 [facility] App[facility]ments Appointment Date:11/02/2021 11:15:00 AM Scheduled Provider:Nohemi Garland Location:FT.ONCOLOGY Appointment Type:ONC Office Visit 15 (FT) Diagnostic Tests Pending * CA 27 29 11/01/21 [facility] Future Appointments Appointment Date:11/30/2021 01:15:00 PM Scheduled Provider:Senthil Caldera DO Location:FT.ONCOLOGY Appointment Type:ONC Office Visit 15 (FT) Future Scheduled Tests Laboratory* CBC w/ Auto Diff 12/03/21 * Comprehensive Metabolic Panel 12/03/21 [facility] App[facility]ments Appointment Date:11/30/2021 01:15:00 PM Scheduled Provider:Senthil Caldera DO Location:FT.ONCOLOGY Appointment Type:ONC Office Visit 15 (FT) [facility] Future Appointments Appointment Date:12/21/2021 01:15:00 PM Scheduled Provider:Senthil Caldera DO Location:FT.ONCOLOGY Appointment Type:ONC Office Visit 15 (FT) Future Scheduled Tests Laboratory* CBC w/ Auto Diff 12/21/21 * Comprehensive Metabolic Panel 12/21/21 [facility] App[facility]ments Appointment Date:01/18/2022 02:15:00 PM Scheduled Provider:Senthil Caldera DO [facility] Type:[facility]C Office Visit 15 (FT) [...] Panel 01/18/22 * Comprehensive Metabolic Panel 01/25/22 [facility]ments Appointment Date:01/18/2022 02:15:00 PM Scheduled Provider:Senthil Caldera DO [facility] Type:ONC Office Visit 15 (FT) Future Scheduled Tests Laboratory* CBC w/ Auto Diff 01/04/22 * CBC w/ Auto Diff 01/11/22 * CBC w/ Auto Diff 01/18/22 * CBC w/ Auto Diff 01/25/22 * Comprehensive Metabolic Panel 01/04/22 * Comprehensive Metabolic Panel 01/11/22 * Comprehensive Metabolic Panel 01/18/22 * Comprehensive Metabolic Panel 01/25/22 [facility]ments Appointment Date:03/28/2022 02:15:00 PM Scheduled Provider:Senthil Caldera DO [facility] Type:ONC Office Visit 15 (FT) Future Scheduled Tests Laboratory* CBC w/ Auto Diff 01/23/22 * CBC w/ Auto Diff 01/30/22 * CBC w/ Auto Diff 02/06/22 * CBC w/ Auto Diff 02/13/22 * Comprehensive Metabolic Panel 01/23/22 * Comprehensive Metabolic Panel 01/30/22 * Comprehensive Metabolic Panel 02/06/22 * Comprehensive Metabolic Panel 02/13/22 [facility] App[facility]ments Appointment Date:03/28/2022 02:15:00 PM Scheduled Provider:Senthil Caldera DO Location:FT.ONCOLOGY Appointment Type:ONC Office Visit 15 (FT) Future Scheduled Tests Laboratory* CBC w/ Auto Diff 03/08/22 * CBC w/ Auto Diff 04/05/22 * Comprehensive Metabolic Panel 03/08/22 * Comprehensive Metabolic Panel 04/05/22 [facility] App[facility]ments Appointment Date:06/06/2022 01:15:00 PM Scheduled Provider:Senthil Caldera DO Location:FT.ONCOLOGY Appointment Type:ONC Office Visit 15 (FT) [facility] Future Appointments Appointment Date:08/01/2022 02:00:00 PM Scheduled Provider:Senthil Caldera DO Location:.ONCOLOGY Appointment Type:ONC Office Visit 15 (FT) Future Scheduled Tests Laboratory* CBC w/ Auto Diff 06/06/22 * Comprehensive Metabolic Panel 06/06/22 [facility] App[facility]ments Appointment Date:08/01/2022 02:00:00 PM Scheduled Provider:Senthil Caldera DO Location:FT.ONCOLOGY Appointment Type:ONC Office Visit 15 (FT) Diagnostic Tests Pending * CA 27 29 07/09/22 Future Scheduled Tests Laboratory* CA 27 29 07/31/22 * CBC w/ Auto Diff 07/31/22 * Comprehensive Metabolic Panel 07/31/22 [facility] App[facility]ments Appointment Date:08/01/2022 02:00:00 PM Scheduled Provider:Senthil Caldera DO Location:FT.ONCOLOGY Appointment Type:ONC Office Visit 15 (FT) Diagnostic Tests Pending * CA 27 29 07/30/22 [facility] Future App[facility]ments Appointment Date:09/27/2022 [...] Transferrin 08/29/22 * Vitamin B12 Level 08/29/22 [facility] Future App[facility]ments Appointment Date:09/27/2022 01:45:00 PM Scheduled Provider:Nohemi Garland Location:FT.ONCOLOGY Appointment Type:ONC Office Visit 30 (FT) Diagnostic Tests Pending * CA 27 29 09/25/22 [facility] Future Appointments Appointment Date:11/22/2022 02:15:00 PM Scheduled Provider:Senthil Caldera DO Location:FT.ONCOLOGY Appointment Type:ONC Office Visit 15 (FT) Future Scheduled Tests Laboratory* CA 27 29 10/25/22 * CA 27 29 11/22/22 * CBC w/ Auto Diff 10/25/22 * CBC w/ Auto Diff 11/22/22 * Comprehensive Metabolic Panel 10/25/22 * Comprehensive Metabolic Panel 11/22/22 [facility] Future Appointments Appointment Date:12/26/2022 02:45:00 PM Scheduled Provider:Senthil Caldera DO Location:FT.ONCOLOGY Appointment Type:ONC Office Visit 15 (FT) Future Scheduled Tests Laboratory* CA 27 29 10/25/22 * CA 27 29 11/22/22 * CBC w/ Auto Diff 10/25/22 * CBC w/ Auto Diff 11/22/22 * Comprehensive Metabolic Panel 10/25/22 * Comprehensive Metabolic Panel 11/22/22 [facility] Evaluation + Plan note Future [...] Panel 04/01/23 * Comprehensive Metabolic Panel 05/02/23 [facility]ments Appointment Date:06/12/2023 [...] Panel 04/01/23 * Comprehensive Metabolic Panel 05/02/23 [facility] Future Appointments Appointment Date:09/12/2023 [...] Transferrin 09/12/23 * Vitamin B12 Level 09/12/23 [facility] note[facility] assessment information available [facility] Work Phone: Hospital course Narrative No data available for this section [facility] [place] Hospital Discharge instructions No data available for this section [facility] [place] Progress note No data available for this section [facility] Summary Purpose Family History No Family History [...] section and content) DATE CREATED AUTHOR 09/08/2021 [facility] DATE CREATED AUTHOR AUTHOR'S ORGANIZ ATION 06/08/2023 [facility] DATE CREATED AUTHOR AUTHOR'S ORGANIZ ATION 06/28/2023 [facility] Care Team (unrecognized sect ion and content) 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 [facility]. provides no warranty or guarantee of the accuracy or completeness of information in this document.
[2023-07-31 09:05] LABS: Basophils Absolute Auto 0.1 10^3/uL (0.0-0.1); Basophils Percent Auto 1.9 % (0.2-2.0); Eosinophils Absolute Auto 0.1 10^3/uL (0.0-0.7); Eosinophils Percent Auto 3.6 % (0.9-7.0); Hematocrit 28.2 % (36.0-48.0); Hemoglobin 8.9 g/dL (12.0-16.0); Immature Granulocytes Abs Auto 0.02 10^3/uL (0.00-0.03); Immature Granulocytes Pct Auto 0.5 % (0.0-0.5); Lymphocytes Absolute Auto 1.5 10^3/uL (1.2-3.8); Lymphocytes Percent Auto 40.7 % (20.5-60.0); Mean Corpuscular HGB Conc 31.6 g/dL (29.9-35.2); Mean Corpuscular Hemoglobin 33.8 pg (26.7-34.0); Mean Corpuscular Volume 107.2 fL (81.0-99.0); Mean Platelet Volume 9.5 fL (9.5-13.5); Monocytes Absolute Auto 0.4 10^3/uL (0.3-0.8); Monocytes Percent Auto 10.9 % (1.7-12.0); Neutrophils Absolute Auto 1.6 10^3/uL (1.4-6.5); Neutrophils Percent Auto 42.4 % (43.0-75.0); Platelet Count 119 10^3/uL (150-450); Red Blood Count 2.63 10^6/uL (4.20-5.40); White Blood Count 3.7 10^3/uL (4.0-11.0)
[2023-07-31 09:50] LABS: Alanine Aminotransferase 14 U/L (14-59); Albumin Globulin Ratio 0.7; Albumin Level 2.4 g/dL (3.4-5.0); Alkaline Phosphatase 104 U/L (46-116); Anion Gap 15.2; Aspartate Amino Transferase 14 U/L (15-37); BUN Creatinine Ratio 29.5; Bilirubin Total 0.2 mg/dL (0.2-1.0); Calcium 8.8 mg/dL (8.5-10.1); Carbon Dioxide 20.6 mmol/L (21.0-32.0); Chloride 110 mmol/L (98-107); Estimated GFR (African America 49 (>=60); Estimated GFR (Non-African Ame 40 (>=60); Globulin 3.3 g/dL; Glucose 113 mg/dL (74-106); Potassium 4.8 mmol/L (3.5-5.1); Sodium 141 mmol/L (136-145); Total Protein 5.7 g/dL (6.4-8.2)
== END 2023-07-31 06:16 | disposition home or self-care (01) ==
LOC: LAB 06:15
PROVIDERS: PCP Family Medicine; Visit Provider Family Medicine
DX: Z51.81 Encounter for therapeutic drug level monitoring (principal); Z85.3 Personal history of malignant neoplasm of breast
CPT/HCPCS: 36415; 80053; 85025; 86300

== ENCOUNTER 2023-09-02 00:57 | Outpatient (REF) | payer OTHER, SELFPAY ==
--- OUTSIDE RECORDS SUMMARY | 2023-09-02 01:01 | XMS_ITS | CCD ---
Author Organization [facility] Care Team Providers Care Director Of Business Services Name Role Phone Rickey Askew Primary Care Physician Eva Beard Unavailable Unavailable Rickey Askew MD Unavailable Rickey Askew MD Primary Care Provider DO Senthil Caldera II Attending Provider MD Mary Rodriguez Primary Care Provider [phone] Senthil Caldera Attending Unavailable Mgowicz, Senthil Referring Unavailable Adamowicz, DO HernandezSenthil Admitting Unavailabl e Senthil Caldera Attending Unavailable Mgowicz, Senthil Admitting Unavailable Mgowicz, Senthil Attending Unavailable Mgowflaquito, Senthil Admitting Unavailable Nohemi Garcia Attending Unavailable Sammy QUEZADA Attending Unavailable Senthil Caldera Attending Unavailable Mgowflaquito, Senthil Admitting Unavailable Mgowicz, Senthil Attending Unavailable Verenice, Senthil Admitting Unavailable Zaheer Sloan Admitting Unavailable Zaheer Sloan Attending Unavailable Wyatt Murray Attending Unavailable Mariia LOPEZ Admitting Unavailable EricksonGavino Consulting Unavailable Erickson, DO Gavino T Consulting Unavailable Christiano Rojo Consulting Unavailable Erickson, [...] QUEZADA Attending Unavailable Jeffery Murphy Attending Unavailable ePdro Nava Attending Unavailable David Tong Attending Unavailable Senthil Caldera Attending Unavailable Senthil Caldera Attending Unavailable Senthil Caldera Attending Unavailable Senthil Caldera Admitting Unavailable Senthil Caldera Attending Unavailable MD Mary Rodriguez Primary Care Provider DO Senthil Caldera II Attending Provider Verenice II, Senthil J Admitting Unavaila patria Caldera II, Senthil Zapata Attending Unavaila Mary Us Primary Care Unavailable Verenice II, Senthil J Admitting Unavaila ble Adameligio II, Senthil Zapata Attending Zoea Mary Us Primary Care Unavailable Allergies Allergy Classification Reported Allergen(s) Allergy [...] day(s), # 28 cap(s), Refills(s) 0, Pharmacy: [facility], 167.6, cm, 12/19/22 20:43:00 EDT, Height/Length [...] Nausea, # 30 tab(s), Refills(s) 3, Pharmacy: [facility], 162.5, cm, 08/10/21 12:38:00 EDT, Height/Length [...] day(s), # 42 tab(s), Refills(s) 12, [id number], 167.6, cm, 05/01/23 14:05:00 EST, Height/Length Dosing, [...] Daily, # 30 tab(s), Refills(s) 11, Pharmacy: [facility] #[facility], 162, cm, 09/08/22 15:14:00 EDT, Height/Length Dosing, 96.4, kg, 09/27/22 13:43:00 EDT, Weight Dosing Start Date: 09/27/22 Status: Ordered Vitamin D3 2000 intl units oral tablet (8 sources) Start: 12-14-2022 take 1 tablet by mouth once daily Vitamin D3 2000 intl units oral tablet 50 mcg = 1 tab(s), Oral, Daily, # 90 tab(s), Refills(s) 4, Pharmacy: [facility] #[facility], 167, cm, 11/01/22 20:02:00 EDT, Height/Length [...] daily, # 7 cap(s), Refills(s) 0, Pharmacy: [facility] #[facility], 167, cm, 11/01/22 20:02:00 EDT, Height/Length Dosing, 90.3, kg, 11/01/22 20:02:00 EDT, Weight Dosing Start Date: 11/04/22 Status: Ordered Start: 11-04-2022 ergocalciferol 50,000 intl units Cap 50,000 International_Unit = 1 cap(s), Oral, q7day, # 7 cap(s), Refills(s) 0, Pharmacy: [facility] #[facility], 167, cm, 11/01/22 20:02:00 EDT, Height/Length [...] current use of drug therapy; Translations: [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 Glucose of more than 200 mg/dL in a nonstressed, ambulatory subject supports the diagnosis of Diabetes Mellitus. Glucose Poct Glucometerson 0 08-30-2023 Glucose [Mass/Vol] 127 mg/dL Normal [facility] Comment on above: Result Comment: [place] om Glucose Reference Range is dependent on time and content of last meal. Glucose of more than 200 mg/dL in a nonstressed, ambulatory subject supports the diagnosis of Diabetes Mellitus. PERFORMED BY: [place] [id number] PATHOLOGIST TICKET COLLECTOR OR USHER JERICA JO M.D. Performed By: #### G LULS #### Point of Care testing , PET tumor subq tx strat sb-m ton 08-30-2023 PET tumor subq tx strat sb-mt [facility] [place] [address] [place], [place] [id number] Nuclear Medicine Report Signed Patient: Florina Staley MR#: [id number] 65 : 1950 Acct:[id number] Age/Sex: 73 / F ADM Date: 08/30/23 Loc: Room: Type: [facility] Attending Dr: Senthil Caldera II DO Copies to: Senthil Caldera II, Sammy Vazquez DO Ordering Provider: Senthil Caldera II, DO Date of Service: 08/30/23 PET/PET tumor subq tx strat sb-mt: Breast CA w/ Bone METS PET/CT FUSION IMAGING CLINICAL INFORMATION: Right breast cancer with bony metastasis COMPARISON : 05/31/2023 TECHNIQUE: Noncontrasted CT scan from the base of the skull to the upper thigh followed by PET imaging. Multiplanar PET/CT fusion images. The blood sugar is 127mg/dL. The F-18 FDG amount is 13.6mCi. FINDINGS: ORAL CAVITY: HYPERMETABOLISM: Physiologic hypermetabolism of the oral cavity is present. Although distribution may be international representative of asymmetric physiologic uptake, if there [...] SPACE: Unremarkable CAROTID SPACE: Unremarkable RETROPHARYNGEAL SPACE: Unremarkable POSTERIOR CERVICAL SPACE: Unremarkable PREVERTEBRAL SPACE: Unremarkable CAROTID CIRCULATION AND JUGULAR VEINS No vascular abnormality identified. ADENOPATHY: HYPOMETABOLISM: There is mild hypermetabolism of cervical lymph nodes which are not pathologically enlarged. The SUV values are below 2.0 suggestive of a benign etiology. No significant adenopathy identified. The levels assessed include the submental and submandibular, upper jugular, mid jugular, lower jugular and medial supraclavicular, posterior triangle and supraclavicular, anterior cervical, retropharyngeal and retrostyloid, parotid, buccofacial, and retroauricular and occipital. SALIVARY GLANDS: HYPERMETABOLISM: There is appropriate hypermetabolism involving the salivary glands. There is no worrisome disproportionate uptake identified. There is no worrisome focal uptake identified. PAROTID GLANDS: Unremarkable SUBMANDIBULAR GLANDS: Unremarkable SUBLINGUAL GLANDS: Unremarkable THYROID GLAND: HYPERMETABOLISM: The distribution of hypermetabolism of the thyroid gland is within normal limits. No thyroid nodule identified. AIRWAY: Central airway is patent. ESOPHAGUS: Esophagus normal course and caliber. HEART: Heart is not enlarged. Normal FDG uptake identified. PERICARDIAL EFFUSION: None CORONARY ARTERY CALCIFICATION: None MEDIASTINUM: Nonenlarged mediastinal lymph nodes identified. There is a mild amount of hypermetabolism of the mediastinal lymph nodes. The maximal SUV of the lymph nodes is below 2.0 suggestive of benign etiology. HILAR REGION: No hilar mass or adenopathy is seen. There is mild hypermetabolism of hilar lymph nodes. The maximal SUV value is less than 2.0 favoring benign etiology. THORACIC AORTA: No thoracic aortic aneurysm or dissection. No atherosclerosis LUNG INTERSTITIUM: No infiltrate or congestion identified. No worrisome regions of lung hypermetabolism identified. PLEURAL EFFUSION No pleural effusion identified. PNEUMOTHORAX: No pneumothorax seen. LUNG NODULE: No lung nodules identified. CHEST WALL: Hypermetabolic right breast mass redemonstrated. There is interval enlargement measuring up to 2.3 cm. Prior measurement 1.8 cm. Redemonstration of similar adjacent hypermetabolic nodule. This is unchanged. The bony chest intact. LIVER: No hepatic mass or intrahepatic biliary ductal dilatation is identified. Normal density of the li (more content not included)... Normal [facility] Physician Orderon 06-27-2023 Physician Order [id number]#1.00TIFF [facility] Consent for Treatmenton 05-24 Consent for Treatment [id number]#1.00TIFF [facility] ED Pat Eduon 06-12-2023 ED Pat Edu [facility] ED Pat Edu [facility] ED Pat Edu [facility] Oncology Progress Noteon Oncology Progress Note Normal [facility] Physician Orderon 06-12-2023 Physician Order [id number]#1.00TIFF [facility] Outside Labson 06-06-2023 Outside Labs [id number]#1.00TIFF [facility] Outside Radiologyon 06-06-19 Outside Radiology [id number]#1.00TIFF [facility] ALL CBC WITH AUTO DIFFon BASOPHILS ABSOLUTE AUTO 0.1 N S [facility] Basophils/100 WBC (Bld) 1.2 % 0.2 - 2.0 % [facility] Eosinophils/100 WBC (Bld) 3.8 % 0.9 - 7.0 % [facility] Erythrocyte distribution width (RBC) [Ratio] 13.4 % 11.0 - 15.0 % [facility] Hematocrit (Bld) [Volume fraction] 29.4 % Low 36.0 - 48.0 % [facility] Hemoglobin (Bld) [Mass/Vol] 9.4 g/dL Low 12.0 - 16.0 g/dL [facility] IMMATURE GRANULOCYTES ABS AUTO 0.02 [facility] Immature granulocytes/100 WBC (Bld) 0.4 % 0.0 - 0.5 % [facility] Interpretation and review of laboratory results Abnormal [facility] LYMPHOCYTES ABSOLUTE AUTO 1.8 [facility] Lymphocytes/100 WBC (Bld) 35.5 % 20.5 - 60.0 % [facility] MCH (RBC) [Entitic mass] 33.5 pg 26.7 - 34.0 pg [facility] MCHC (RBC) [Mass/Vol] 32.0 g/dL 29.9 - 35.2 g/dL [facility] MCV (RBC) [Entitic vol] 104.6 fL High 81.0 - 99.0 fL [facility] MONOCYTES ABSOLUTE AUTO 0.4 N [facility] Monocytes/100 WBC (Bld) 8.2 % 1.7 - 12.0 % [facility] NEUTROPHILS ABSOLUTE AUTO 2.5 [facility] Neutrophils/100 WBC (Bld) 50.9 % 43.0 - 75.0 % [facility] Platelet mean volume (Bld) [Entitic vol] 9.2 fL Low 9.5 - 13.5 fL [facility] TBH EO # 0.2 [facility] TB PLT 182 [facility] RBC 2.81 Low [facility] WBC 5.0 [facility] GLUCOSE POCT GLUCOMETERSon 0 05-31-2023 Glucose [Mass/Vol] 110 mg/dL [facility] Comment on above: Random Glucose Refer ence Range is dependent on time and content of last meal. Glucose of more than 200 mg/dL in a nonstressed, ambulatory subject supports the diagnosis of Diabetes Mellitus. [facility] Glucose Glucometer (BldC) [M ass/Vol]Ordered By: Senthil Caldera on 05-31-2023 Glucose [Mass/Vol] 110 mg/dL [facility] Comment on above: Random Glucose Refer ence Range is dependent on time and content of last meal. Glucose of more than 200 mg/dL in a nonstressed, ambulatory subject supports the diagnosis of Diabetes Mellitus. Glucose Poct Glucometerson 0 05-31-2023 Glucose [Mass/Vol] 110 mg/dL Normal [facility] Comment on above: Result Comment: [place] Glucose Reference Range is dependent on time and content of last meal. Glucose of more than 200 mg/dL in a nonstressed, ambulatory subject supports the diagnosis of Diabetes Mellitus. PERFORMED BY: [place] [address] PATHOLOGIST TICKET COLLECTOR OR USHER JERICA JO M.D. Performed By: #### G LULS #### Point of Care testing , PET tumor subq tx strat sb-m ton 05-31-2023 PET tumor subq tx strat sb-mt [facility] [place] [address] [place] [address] Nuclear Medicine Report Signed Patient: Florina Staley MR#: [id number] 65 : 1950 Acct:[id number] Age/Sex: 72 / F ADM Date: 05/31/23 Loc: Room: Type: [facility] Attending Dr: Senthil Caldera II DO [...] cavity is present. Although distribution may be international representative of asymmetric physiologic uptake, if there [...] Unremarkable ADRE (more content not included)... Normal [facility] ALL CBC WITH AUTO DIFFon BASOPHILS ABSOLUTE AUTO 0.1 N [facility] Basophils/100 WBC (Bld) 2.0 % 0.2 - 2.0 % [facility] Eosinophils/100 WBC (Bld) 3.3 % 0.9 - 7.0 % [facility] Erythrocyte distribution width (RBC) [Ratio] 13.2 % 11.0 - 15.0 % [facility] Hematocrit (Bld) [Volume fraction] 28.4 % Low 36.0 - 48.0 % [facility] Hemoglobin (Bld) [Mass/Vol] 9.2 g/dL Low 12.0 - 16.0 g/dL [facility] IMMATURE GRANULOCYTES ABS AUTO 0.02 [facility] Immature granulocytes/100 WBC (Bld) 0.4 % 0.0 - 0.5 % [facility] Interpretation and review of laboratory results Abnormal [facility] LYMPHOCYTES ABSOLUTE AUTO 2.0 [facility] Lymphocytes/100 WBC (Bld) 43.8 % 20.5 - 60.0 % [facility] MCH (RBC) [Entitic mass] 33.5 pg 26.7 - 34.0 pg [facility] MCHC (RBC) [Mass/Vol] 32.4 g/dL 29.9 - 35.2 g/dL [facility] MCV (RBC) [Entitic vol] 103.3 fL High 81.0 - 99.0 fL [facility] MONOCYTES ABSOLUTE AUTO 0.3 N [facility] Monocytes/100 WBC (Bld) 6.9 % 1.7 - 12.0 % [facility] NEUTROPHILS ABSOLUTE AUTO 2.0 [facility] Neutrophils/100 WBC (Bld) 43.6 % 43.0 - 75.0 % [facility] Platelet mean volume (Bld) [Entitic vol] 9.0 fL Low 9.5 - 13.5 fL [facility] TBH EO # 0.2 [facility] TBH PLT 226 [facility] TB RBC 2.75 [facility] WBC 4.5 [facility] Insurance Correspondenceon 0 05-23-2023 Insurance Correspondence [id number]#1.00TIFF [facility] Oncology Noteon 05-20-2023 Oncology Note [facility] Comment on above: Result Comment: Elec tronically Signed By: Jane FARMER, Yolande Houston\.br\Date and Time Signed: 05/20/23 14:48 EST Physician Orderon 05-15-2023 Physician Order [id number]#1.00TIFF [facility] Comment on above: Other Comment: wrong patient Physician Orderon 05-14-2023 Physician Order [id number]#1.00TIFF [facility] Outside Labson 05-02-2023 Outside Labs [id number]#1.00TIFF [facility] Outside Labs [id number]#1.00TIFF [facility] Physician Orderon 05-02-2023 Physician Order [id number]#1.00TIFF [facility] Physician Order [id number]#1.00TIFF [facility] Consent for Treatmenton 04-22 Consent for Treatment [id number]#1.00TIFF [facility] Oncology Noteon 05-01-2023 Oncology Note [facility] Comment on above: Result Comment: Elec tronically Signed By: Magda FARMER, Annia\.br\Date and Time Signed: 05/01/23 15:05 EST Oncology Progress Noteon Oncology Progress Note Normal [facility] Outside Labson 05-01-2023 Outside Labs [id number]#1.00TIFF Normal [facility] ONC - Otheron 02-07-2023 ONC - Other [id number]#1.00TIFF Normal [facility] Physician Orderon 02-05-2023 Physician Order [id number]#1.00TIFF [facility] Consent for Treatmenton 01-20 Consent for Treatment [id number]#1.00TIFF Normal [facility] Oncology Noteon 01-30-2023 Oncology Note Normal [facility] Comment on above: Result Comment: Elec tronically Signed By: Jane FARMER, Yolande Houston\.br\Date and Time Signed: 01/30/23 17:07 EDT Oncology Progress Noteon Oncology Progress Note Normal [facility] Outside Lab[facility] 01-29-2023 Outside Labs [id number]#1.00TIF F Normal [facility] Outside Labs [id number]#1.00TIF F [facility] Outside Labson 01-28-2023 Outside Labs [id number]#1.00TIFF [facility] Coding Queryon 01-16-2023 Coding Query [facility] ONC - Otheron 01-16-2023 ONC - Other [id number]#1.00CD:1 27 [facility] ONC - Otheron 01-09-2023 ONC - Other [id number]#1.00CD:1 27 Normal [facility] Discharge Instructionson Discharge Instructions [id number]#1.00CD:1 27 Normal [facility] Transfer Documentson 023 Transfer Documents [id number]#1.00CD:1 27 Normal [facility] CHEMISTRYOrdered By: Elma BRYANT User on 12-23-2022 Glucose [Mass/Vol] 111 mg/dL High 55 - 99 mg/dL [facility] Sub[facility] Comment on above: Result Comment: Navin BOSE POC Device SN [id number] Invalid Interpretation Code FT POC Subsection POC User ID [id number] Invalid Interpretation Code FT POC Subsection POC Username JUAN HENNESSY Invalid Interpretation Code [facility] Subsection Capillary Glucose POCon Glucose [Mass/Vol] 111 mg/dL High 55-99 [facility] Comment on above: Result Comment: Navin BOSE Performed By: #### 2 [id number] ####[facility] [address] [place] [address] Discharge Note-Nursingon Discharge Note-Nursing Normal [facility] C Urineon 12-22-2022 Bacteria identified Cx Nom (U) Normal [facility] Comment on above: Performed By: #### 1 [id number], [id number] ####[facility] [address] [place] [address] CHEMISTRYOrdered By: Elma BRYANT User on 12-22-2022 Glucose [Mass/Vol] 155 mg/dL High 55 - 99 mg/dL [facility] Subsection Comment on above: Result Comment: Navin BOSE POC Device SN [id number] Invalid Interpretation Code FT POC Subsection POC User ID [id number] Invalid Interpretation Code FT POC Subsection POC Username DARRYN SANTOS Invalid Interpretation Code FT POC Subsection Glucose [Mass/Vol] 129 mg/dL High 55 - 99 mg/dL [facility] Subsection Comment on above: Result Comment: Christine donna Meter POC Device SN [id number] Invalid Interpretation Code [facility] Subsection POC User ID [id number] Invalid Interpretation Code [facility] Subsection POC Username ROOPA LIM Invalid Interpretation Code [facility] P[facility] Subsection Capillary Glucose POCon Glucose [Mass/Vol] 155 mg/dL High 55-99 [facility] Comment on above: Result Comment: Navin BOSE Performed By: #### 2 [id number] ####[facility] [address] [place] [place] [address] Glucose [Mass/Vol] 129 mg/dL High 55-99 [facility] Comment on above: Result Comment: Christine donna Meter Performed By: #### 2 [id number] ####[facility] [address] [place] [address] Glucose [Mass/Vol] 158 mg/dL High 55-99 [facility] Comment on above: Result Comment: Christine donna Meter Performed By: #### 2 [id number] ####[facility] [address] [place] [address] Glucose [Mass/Vol] 144 mg/dL High 55-99 [facility] Comment on above: Result Comment: Navin BOSE Performed By: #### 2 [id number] ####[facility] [address] [place] [address] 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 Note - Attila e Manageron 12-22-2022 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 Note - Pathology Lab Technician Normal [facility] Comment on above: Result Comment: Elec tronically Signed By: Jolanta Stubbs RN\.br\Date and Time Signed: 12/22/22 16:25 EDT Progress Note-Physicianon Progress Note-Physician Normal [facility] Comment on above: Result Comment: Elec tronically Signed By: Zaheer Sloan DO\.br\Date and Time Signed: 12/22/22 09:47 EDT Auto Diffon 12-21-2022 Basophils/100 WBC (Bld) 2.6 % High 0.0-2.0 [facility] Comment on above: Order Comment: Order Added by Discern Expert. Performed By: #### 2 093986, [id number], [id number], [id number], [id number] ####[place] [address] [place] [address] Basophils/Leukocytes Auto (Bld) [Pure # fraction] 0.1 E9/L Normal 0.0-0.2 [facility] Comment on above: Order Comment: Order Added by Discern Expert. Performed By: #### 2 181015, [id number], [id number], 7956108, [id number] ####[address] [address] Eosinophils/100 WBC (Bld) 2.5 % Normal 0.0-8.0 [facility] Comment on above: Order Comment: Order Added by Discern Expert. Performed By: #### 2 957690, [id number], [id number], 1226773, 8482319 ####[address] [address] Eosinophils/Leukocytes Auto (Bld) [Pure # fraction] 0.1 E9/L Normal 0.0-0.5 [facility] Comment on above: Order Comment: Order Added by Faviola Expert. Performed By: #### 2 331756, [id number], [id number], [id number], 0816575 ####[address] [address] Lymphocytes/100 WBC (Bld) 42.1 % Normal 14.0-50.0 [facility] Comment on above: Order Comment: Order Added by Discern Expert. Performed By: #### 2 380099, [id number], [id number], 5812687, 6966755 ####[address] [address] Lymphocytes/Leukocytes Auto (Bld) [Pure # fraction] 1.4 E9/L Normal 1.0-4.0 [facility] Comment on above: Order Comment: Order Added by Faviola Expert. Performed By: #### 2 805575, [id number], 35803569, 1830366, 0943380 ####[facility] [address] [place] [address] Monocytes/100 WBC (Bld) 13.6 % Normal 4.0-14.0 [facility] Comment on above: Order Comment: Order Added by Discern Expert. Performed By: #### 2 259250, [id number], [id number], 3156784, 9928289 ####[place] [address] [place] [address] Monocytes/Leukocytes Auto (Bld) [Pure # fraction] 0.4 E9/L Normal 0.2-1.0 [facility] Comment on above: Order Comment: Order Added by Discern Expert. Performed By: #### 2 266515, [id number], [id number], 2648680, 3340379 ####[place] [address] [place] [address] Neutrophils/100 WBC (Bld) 39.2 % Normal 36.0-75.0 [facility] Comment on above: Order Comment: Order Added by Discern Expert. Performed By: #### 2 780375, [id number], 92795371, 1622524, 0370456 ####[place] [place] [address] Neutrophils/Leukocytes Auto (Bld) [Pure # fraction] 1.3 E9/L Low 2.0-7.5 [facility] Comment on above: Order Comment: Order Added by Discern Expert. Performed By: #### 2 318224, [id number], [id number], 0041167, 3103824 ####[facility] [address] [place] [address] BMPon 12-21-2022 Anion gap [Moles/Vol] 11 mmol/L Normal 6-[address] [facility] Comment on above: Performed By: #### 2 680061, [id number], 81529583, 4169486, 7053519 ####[place] [address] [place] [address] Calcium [Mass/Vol] 8.9 mg/dL Normal 8.9-11.1 [facility] Comment on above: Performed By: #### 2 175085, [id number], 46424037, 4410971, 1447058 ####[facility] [address] [place] [address] Chloride [Moles/Vol] 112 mmol/L High 101-111 [facility] Comment on above: Performed By: #### 2 865992, [id number], 96584436, 5411163, 5072057 ####[facility] [address] [place] [address] CO2 [Moles/Vol] 22 mmol/L Normal 21-31 [facility] Comment on above: Performed By: #### 2 546538, [id number], 05674524, 7960552, 2872275 ####[facility] [address] [place] [address] Creatinine [Mass/Vol] 1.4 mg/dL High 0.5-1.[address] [facility] Comment on above: Performed By: #### 2 522652, 843032578, 14062670, 4157911, 0131765 ####[facility] [address] [place] [address] Glucose [Mass/Vol] 102 mg/dL Normal 55-199 [facility] Comment on above: Result Comment: If t his glucose result represents a fasting glucose, interpretation should refer to the following reference range: 55-99 mg/dL Performed By: #### 2 285370, 119602880, 81884511, 1892674, 0683725 ####[facility] [address] [place] [address] Potassium [Moles/Vol] 4.0 mmol/L Normal 3.5-5.[address] [facility] Comment on above: Performed By: #### 2 150756, 555632436, 50270327, 7967280, 2093671 ####[facility] [address] [place] [address] Sodium [Moles/Vol] 141 mmol/L Normal 135-145 [facility] Comment on above: Performed By: #### 2 259873, 054839777, 10608009, 1216412, 4846753 ####[facility] [address] [place] [address] Urea nitrogen [Mass/Vol] 36 mg/dL High 5-21 [facility] Comment on above: Performed By: #### 2 025774, 985673301, 02611372, 6484932, 7901363 ####[facility] [address] [place] [address] Urea nitrogen/Creatinine [Mass ratio] 26 No Units High 10-20 [facility] Comment on above: Performed By: #### 2 185184, 456560050, 89270872, 8657455, 4567084 ####[facility] [address] [place] [address] C Urineon 12-21-2022 Bacteria identified Cx Nom (U) Normal [facility] Comment on above: Performed By: #### 2 416501, 09324088 ####[facility] [address] [place] [address] CBC w/ Auto Diffon 3 Erythrocyte distribution width (RBC) [Ratio] 18.4 % High 10.9-14.2 [facility] Comment on above: Performed By: #### 2 170388, 761052727, 93941327, 5289228, 9540664 ####[facility] [address] [place] [address] Hematocrit (Bld) [Volume fraction] 26.8 % Low 34.0-46.0 [facility] Comment on above: Performed By: #### 2 221285, 549600561, 15166592, 4292926, 8219796 ####[facility] [address] [place] [address] Hemoglobin (Bld) [Mass/Vol] 9.3 g/dL Low 12.0-16.0 [facility] Comment on above: Performed By: #### 2 608724, 137895653, 67109954, 7147567, 5425622 ####[address] [place] [address] MCH (RBC) [Entitic mass] 34.3 pg High 27.0-34.0 [facility] Comment on above: Performed By: #### 2 588516, 123949041, 39409618, 0953639, 6769834 ####[address] [address] MCHC (RBC) [Mass/Vol] 34.8 g/dL Normal 31.4-36.[address] [facility] Comment on above: Performed By: #### 2 066569, 308238646, 65512561, 2133530, 2089948 ####[address] [address] MCV (RBC) [Entitic vol] 98.6 fL Normal 80.0-100.0 [facility] Comment on above: Performed By: #### 2 492567, 005839346, 71984070, 5976634, 8913360 ####[address] [address] Platelet mean volume (Bld) [Entitic vol] 6.8 fL Normal 6.4-10.8 [facility] Comment on above: Performed By: #### 2 698795, 577985503, 09719403, 3153729, 9945265 ####[address] [address] Platelets (Bld) [#/Vol] 201.0 E9/L Normal 150. 0-500. 0 [facility] Comment on above: Performed By: #### 2 088350, 388713197, 93964976, 3633155, 1295921 ####[address] [place] [address] RBC (Bld) [#/Vol] 2.7 E12/L Low 4.3-5.9 [facility] Comment on above: Performed By: #### 2 348644, 418032484, 66316432, 2065778, 5843517 ####[facility] [address] [place] [address] WBC corrected for nucl RBC Auto (Bld) [#/Vol] 3.3 E9/L Low 4.0-11.0 [facility] Comment on above: Performed By: #### 2 560351, 943009529, 85575249, 0079502, 4989136 ####[facility] [address] [place] [address] CHEMISTRYOrdered By: SYSTEM SYSTEM on 12-21-2022 Anion gap [Moles/Vol] 11 mmol/L Normal 6 - 16 mEq/L [facility] Calcium [Mass/Vol] 8.9 mg/dL Normal 8.9 - 11. 1 mg/dL [facility] Chloride [Moles/Vol] 112 mmol/L High 101 - 1 11 mmol/L [facility] CO2 [Moles/Vol] 22 mmol/L Normal 21 - 31 mmol/L [facility] Creatinine [Mass/Vol] 1.4 mg/dL High 0.5 - 1.3 mg/dL [facility] Remisol GFR/1.73 sq M.predicted among non-blacks MDRD (S/P/Bld) [Vol rate/Area] 40 mL/min/1.73 m2 Low >=59mL/min /1.73 m2 [facility] Chem S Glucose [Mass/Vol] 102 mg/dL Normal 55 - 199 mg/dL [facility] Potassium [Moles/Vol] 4.0 mmol/L Normal 3.5 - 5.3 mmol/L [facility] Remisol Sodium [Moles/Vol] 141 mmol/L Normal 135 - 145 mmol/L [facility] Remisol Urea nitrogen [Mass/Vol] 36 mg/dL High 5 - 21 mg/dL [facility] Remisol Urea nitrogen/Creatinine [Mass ratio] 26 mg/mg High 10 - 20 [facility] Remisol CHEMISTRYOrdered By: Gavino Lyle on 12-21-2022 HbA1c (Bld) [Mass fraction] 7.1 % High <=5.9% [facility] ChemAutoSS Capillary Glucose POCon 09-0 Glucose [Mass/Vol] 127 mg/dL High 55-99 [facility] Comment on above: Result Comment: Navin uriostegui RN/ Performed By: #### 2 [id number] ####[facility] [address] [place] [address] Glucose [Mass/Vol] 160 mg/dL High 55-99 [facility] Comment on above: Result Comment: Navin uriostegui RN/ Performed By: #### 2 69765186 ####[facility] [address] [place] [address] Glucose [Mass/Vol] 132 mg/dL High 55-[address] [place] [address] Comment on above: Result Comment: Navin uriostegui RN/ Performed By: #### 2 93971201 ####[facility] [address] [place] [address] Glucose [Mass/Vol] 115 mg/dL High 55-[address] [place] [address] Comment on above: Result Comment: Navin BOSE Performed By: #### 2 75850347 ####[facility] [address] [place] [address] HEMATOLOGYOrdered By: SYSTEM SYSTEM on 12-21-2022 Basophils/100 WBC (Bld) 2.6 % High 0.0 - 2.0 % [facility] HemeAutoSS Basophils/Leukocytes Auto (Bld) [Pure # fraction] [...] 13.6 % Normal 4.0 - 14.0 % [facility] HemeAutoSS Monocytes/Leukocytes Auto (Bld) [Pure # fraction] [...] Low 4.0 - 11.0 E9/L [facility] HemeAutoSS LqqO1ias 12-21-2022 HbA1c (Bld) [Mass fraction] 7.1 % High <=5.9 [facility] Comment on above: Performed By: #### 2 760956, 777028249, 69711965, 0504119, 3450259 ####[facility] [address] [place] [address] Insurance Correspondence Off iceon 12-21-2022 Insurance Correspondence Office [id number]#1.00CD:12 7 Normal [facility] 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 Note - Attila e Manageron 12-21-2022 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 Note - Pathology Lab Technician Normal [facility] Comment on above: Result Comment: Elec tronically Signed By: Brooklynn Connor\.br\Date and Time Signed: 12/21/22 11:15 EDT 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 Note - Rafat n 12-21-2022 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 Note - OT Normal [facility] 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 Note - PTo n 12-21-2022 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 Note - PT Normal [facility] 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 Note - Soc ial Workeron 12-21-2022 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 Note - Pelletizer Normal [facility] Message from Medicareon 09-0 Message from Medicare [id number]#1.00CD:12 7 Normal [facility] Progress Note-Physicianon Progress Note-Physician Normal [facility] Comment on above: Result Comment: Elec tronically Signed By: Zaheer Sloan DO\Date and Time Signed: 12/21/22 14:15 EDT eGFRon 12-21-2022 GFR/1.73 sq M.predicted among non-blacks MDRD (S/P/Bld) [Vol rate/Area] 40 mL/min/1.73 m2 Low >=59 [facility] Comment on above: Order Comment: Order added by Discern Expert. Result Comment: Purse Framer aubrey kidney disease could be indicated at eGFR's of less than 60 mL/min/1.73m2. Kidney failure is indicated at less than 15 mL/min/1.73m2. Performed By: #### 2 758688, 699425847, 60087045, 6311539, 4442138 ####[facility] [address] [place] [address] Auto Diffon 12-20-2022 Basophils/100 WBC (Bld) 3.5 % High 0.0-2.0 [facility] Comment on above: Order Comment: Order Added by Discern Expert. Performed By: #### 2 092472, 83854699, 8515842, 61313805, 3889346, 2602924 ####[facility] [address] [place] [address] Basophils/Leukocytes Auto (Bld) [Pure # fraction] 0.1 E9/L Normal 0.0-0.2 [facility] Comment on above: Order Comment: Order Added by Discern Expert. Performed By: #### 2 893744, 56062976, 1931655, 70994027, 1899162, 5468311 ####[address] [place] [address] Eosinophils/100 WBC (Bld) 1.3 % Normal 0.0-8.0 [facility] Comment on above: Order Comment: Order Added by Discern Expert. Performed By: #### 2 272914, 06928149, 2768625, 50953805, 8580197, 9193854 ####[facility] [address] [place] [address] Eosinophils/Leukocytes Auto (Bld) [Pure # fraction] 0.0 E9/L Normal 0.0-0.5 [facility] Comment on above: Order Comment: Order Added by Discern Expert. Performed By: #### 2 037582, 32354692, 2558356, 08931093, 1389412, 5364565 ####[address] [address] Lymphocytes/100 WBC (Bld) 28.4 % Normal 14.0-50.0 [facility] Comment on above: Order Comment: Order Added by Discern Expert. Performed By: #### 2 524907, 39472267, 2818669, 86832652, 6809039, 5565609 ####[address] [place] [address] Lymphocytes/Leukocytes Auto (Bld) [Pure # fraction] 1.1 E9/L Normal 1.0-4.0 [facility] Comment on above: Order Comment: Order Added by Faviola Expert. Performed By: #### 2 250684, 87703926, 3341319, 90230266, 3629805, 7268486 ####[facility] [address] [place] [address] Monocytes/100 WBC (Bld) 12.5 % Normal 4.0-14.0 [facility] Comment on above: Order Comment: Order Added by Discern Expert. Performed By: #### 2 567584, 64630825, 3589714, 03440336, 5171605, 4211880 ####[facility] [address] [place] [address] Monocytes/Leukocytes Auto (Bld) [Pure # fraction] 0.5 E9/L Normal 0.2-1.0 [facility] Comment on above: Order Comment: Order Added by Faviola Expert. Performed By: #### 2 515008, 80940364, 0446156, 28384848, 6148192, 1880908 ####[facility] [address] [place] [address] Neutrophils/100 WBC (Bld) 54.3 % Normal 36.0-75.0 [facility] Comment on above: Order Comment: Order Added by Faviola Expert. Performed By: #### 2 601064, 97613750, 1558868, 59096237, 1792914, 8990834 ####[facility] [address] [place] [address] Neutrophils/Leukocytes Auto (Bld) [Pure # fraction] 2.1 E9/L Normal 2.0-7.5 [facility] Comment on above: Order Comment: Order Added by Faviola Expert. Performed By: #### 2 947171, 77503302, 6045325, 72002038, 6512600, 5090365 ####[facility] [address] [place] [address] BMPon 12-20-2022 Creatinine [Mass/Vol] 1.3 mg/dL Normal 0.5-1.[address] [facility] Comment on above: Performed By: #### 2 458161, 11118902, 3584343, 21974992, 0291734, 1600989 ####[facility] [address] [place] [address] Urea nitrogen [Mass/Vol] 36 mg/dL High 5-21 [facility] Comment on above: Performed By: #### 2 486069, 07441115, 7044450, 36244571, 1647393, 3635712 ####[facility] [address] [place] [address] Urea nitrogen/Creatinine [Mass ratio] 28 No Units High 10-20 [facility] Comment on above: Performed By: #### 2 417935, 82570366, 1547043, 55099457, 4500307, 7401184 ####[facility] [address] [place] [address] Anion gap [Moles/Vol] 13 mmol/L Normal 6-[address] [facility] Comment on above: Performed By: #### 2 661374, 81631041, 7319434, 32762926, 5666273, 6532574 ####[facility] [address] [place] [address] Calcium [Mass/Vol] 9.6 mg/dL Normal 8.9-11.1 [facility] Comment on above: Performed By: #### 2 403301, 50665310, 5289609, 07041101, 8784445, 1246784 ####[facility] [address] [place] [address] Chloride [Moles/Vol] 108 mmol/L Normal 101-111 [facility] Comment on above: Performed By: #### 2 649603, 53042423, 3345731, 65708711, 9004756, 1865138 ####[facility] [address] [place] [address] CO2 [Moles/Vol] 21 mmol/L Normal 21-31 [facility] Comment on above: Performed By: #### 2 084023, 66428168, 2684509, 02819946, 6804475, 4696031 ####[facility] [address] [place] [address] Glucose [Mass/Vol] 136 mg/dL Normal 55-199 [facility] Comment on above: Result Comment: If t his glucose result represents a fasting glucose, interpretation should refer to the following reference range: 55-99 mg/dL Performed By: #### 2 394413, 74642560, 3946064, 80959080, 1136159, 8502786 ####[facility] [address] [place] [address] Potassium [Moles/Vol] 4.2 mmol/L Normal 3.5-5.[address] [facility] Comment on above: Performed By: #### 2 682775, 41708695, 8717151, 48916170, 7840038, 0222817 ####[facility] [address] [place] [address] Sodium [Moles/Vol] 138 mmol/L Normal 135-145 [facility] Comment on above: Performed By: #### 2 501055, 07551101, 4463624, 09470826, 0350444, 1480656 ####[facility] [address] [place] [address] CBC w/ Auto Diffon 3 Erythrocyte distribution width (RBC) [Ratio] 19.0 % High 10.9-14.2 [facility] Comment on above: Performed By: #### 2 370644, 40115375, 7774644, 55713957, 4968349, 9581556 ####[facility] [address] [place] [address] Hematocrit (Bld) [Volume fraction] 31.3 % Low 34.0-46.0 [facility] Comment on above: Performed By: #### 2 644437, 10322296, 9809454, 79214897, 0669036, 2040061 ####[facility] [address] [place] [address] Hemoglobin (Bld) [Mass/Vol] 10.4 g/dL Low 12.0-16.0 [facility] Comment on above: Performed By: #### 2 775206, 21506620, 1863099, 84980687, 8595584, 1432790 ####[facility] [address] [place] [address] MCH (RBC) [Entitic mass] 33.3 pg Normal 27.0-34.0 [facility] Comment on above: Performed By: #### 2 098045, 01160626, 7158264, 37581942, 0342302, 3940309 ####[facility] [address] [place] [address] MCHC (RBC) [Mass/Vol] 33.3 g/dL Normal 31.4-36.[address] [facility] Comment on above: Performed By: #### 2 960091, 46380099, 9296339, 62875442, 0771924, 2097686 ####[address] [address] MCV (RBC) [Entitic vol] 99.8 fL Normal 80.0-100.0 [facility] Comment on above: Performed By: #### 2 832175, 24005190, 6218041, 24373970, 9956726, 2466407 ####[address] [address] Platelet mean volume (Bld) [Entitic vol] 6.8 fL Normal 6.4-10.8 [facility] Comment on above: Performed By: #### 2 486595, 72648246, 5030830, 87521717, 8395922, 1864472 ####[address] [address] Platelets (Bld) [#/Vol] 212.0 E9/L Normal 150. 0-500. 0 [facility] Comment on above: Performed By: #### 2 977429, 62453665, 9846473, 31353866, 5279093, 6919909 ####[facility] [address] [place] [address] RBC (Bld) [#/Vol] 3.1 E12/L Low 4.3-5.9 [facility] Comment on above: Performed By: #### 2 303708, 24024239, 1027360, 28249330, 5096349, 7859870 ####[facility] [address] [place] [address] WBC corrected for nucl RBC Auto (Bld) [#/Vol] 3.9 E9/L Low 4.0-11.0 [facility] Comment on above: Performed By: #### 2 362750, 19955836, 2475047, 48087869, 5384806, 4288950 ####[facility] [address] [place] [address] CHEMISTRYOrdered By: SYSTEM SYSTEM on 12-20-2022 Troponin [...] Consent for Treatmenton 11-22 Consent for Treatment [id number]#1.00CD:12 7 [facility] Consent for Treatment [id number]#1.00CD:1 27 [facility] Discharge Instructionson Discharge Instructions [id number]#1.00CD:1 27 Normal [facility] ED Clinical Summaryon 2022 ED Clinical Summary Normal [facility] ED Clinical Summary Normal [facility] ED Note-Physicianon 12-21-19 ED Note-Physician Normal [facility] Comment on above: Result Comment: Elec tronically Signed By: Pedro Nava DO\.br\Date and Time Signed: 12/20/22 19:22 EDT ED Note-Physician Normal [facility] Comment on above: Result Comment: Elec tronically Signed By: David Tong MD\.br\Date and Time Signed: 12/20/22 00:40 EDT ED Patient Education Noteon 12-20-2022 ED Patient Education Note Normal [facility] ED Patient Education Note Normal [facility] ED Patient Summaryon 023 ED Patient Summary Normal [facility] ED Patient Summary Normal [facility] HEMATOLOGYOrdered By: SYSTEM SYSTEM on 12-20-2022 Basophils/100 [...] 2.1 E9/L Normal 2.0 - 7.5 E9/L [facility] HEMATOLOGYOrdered By: Fausto Lyle on 12-20-2022 Erythrocyte distribution width (RBC) [Ratio] 19.0 % High 10.9 - 14.2 % [facility] Hematocrit (Bld) [Volume fraction] 31.3 % Low 34.0 - 46.0 % [facility] Hemoglobin (Bld) [Mass/Vol] 10.4 g/dL Low 12.0 - 16.0 gm/dL [facility] MCH (RBC) [Entitic mass] 33.3 pg Normal 27.0 - 34.0 pg [facility] MCHC (RBC) [Mass/Vol] 33.3 g/dL Normal 31.4 - 36.0 gm/dL [facility] MCV (RBC) [Entitic vol] 99.8 fL Normal 80.0 - 100.0 fL [facility] Platelet mean volume (Bld) [Entitic vol] 6.8 fL Normal 6.4 - 10.8 fL [facility] Platelets (Bld) [#/Vol] 212.0 E9/L Normal 150. 0 - 500.0 E9/L [facility] RBC (Bld) [#/Vol] 3.1 E12/L Low 4.3 - 5.9 E12/L [facility] WBC corrected for nucl RBC Auto (Bld) [#/Vol] 3.9 E9/L Low 4.0 - 11.0 E9/L [facility] Hep Func Panelon 12-20-2022 Bilirubin.direct [Mass/Vol] 0.1 mg/dL Normal 0.1-0.4 [facility] Comment on above: Performed By: #### 2 228780, 12120534, 1709867, 81991026, 4113139, 1006524 ####[facility] [address] [place] [address] Bilirubin.indirect [Mass or moles/Vol] 0.8 mg/dL Normal 0.1-0.9 [facility] Comment on above: Performed By: #### 2 790871, 27350654, 9347355, 63503767, 9622239, 5944085 ####[facility] [address] [place] [address] Albumin [Mass/Vol] 3.5 g/dL Normal 3.3-5.0 [facility] Comment on above: Performed By: #### 2 898506, 34062599, 0147222, 85000786, 1255611, 5814813 ####[facility] [address] [place] [address] Albumin/Globulin (S) [Mass conc ratio] 0.9 Low 1.1-2.2 [facility] Comment on above: Performed By: #### 2 673290, 81859941, 9294348, 71536082, 0332041, 3260891 ####[address] [place] [address] ALP [Catalytic activity/Vol] 101 Int._Unit/L High 21-98 [facility] Comment on above: Performed By: #### 2 398070, 02123419, 4736336, 95917668, 2979955, 8805174 ####[facility] [address] [place] [address] ALT No additional P-5'-P [Catalytic activity/Vol] 20 Int._Unit/L Normal 6-46 [facility] Comment on above: Performed By: #### 2 912817, 10935705, 6611887, 37022259, 2258899, 6222813 ####[facility] [address] [place] [address] AST [Catalytic activity/Vol] 18 Int._Unit/L Normal 5-43 [facility] Comment on above: Performed By: #### 2 713956, 12685463, 0317699, 22935321, 8180812, 1628573 ####[facility] [address] [place] [address] Bilirubin [Mass/Vol] 0.9 mg/dL Normal 0.0-1.1 [facility] Comment on above: Performed By: #### 2 044697, 40251214, 6798826, 01940490, 1172038, 2932726 ####[facility] [address] [place] [address] Globulin (S) [Mass/Vol] 3.8 g/dL Normal 1.4-4.0 [facility] Comment on above: Performed By: #### 2 280711, 90411789, 7229420, 88149527, 7235024, 7235494 ####[facility] [address] [place] [address] Protein [Mass/Vol] 7.3 g/dL Normal 6.0-7.8 [facility] Comment on above: Performed By: #### 2 420309, 18182444, 1345248, 25424958, 8363406, 2161476 ####[facility] [address] [place] [address] Laboratory - Microbiology an d Antimicrobial susceptibilityOrdered By: Ninfa Sawyer on 12-20-2022 Bacteria identified Cx Nom (U) 1,000 cfu/ml Mixed skin contaminants [facility] Monitor Recordon 12-20-2022 Monitor Record [id number]#1.00CD:1 27 Normal [facility] Monitor Record [id number]#1.00CD:1 27 Normal [facility] Pre-Arrival Noteon 3 Pre-Arrival Note Normal [facility] Troponin 0 Hr.on 12-20-2022 Troponin I.cardiac [Mass/Vol] 9.80 pg/mL Low 10.10-27.1 0 [facility] Comment on above: Result Comment: The 95% CI (Confidence Interval) PPV (Positive Predictive Value) for myocardial infarction in females is 38 pg/mL, in males 51 pg/mL. The results should be used in conjunction with clinical conditions of myocardial infarction.(Access High Sensitivity Troponin I Instructions For Use, [employer], November 2017) Performed By: #### 2 214592, 34212679, 3579793, 80599315, 8262363, 3287130 ####[facility] [address] [place] [address] Troponin 3 Hr.on 12-20-2022 Troponin I.cardiac [Mass/Vol] 10.20 pg/mL Normal 10.10-27.1 0 [facility] Comment on above: Result Comment: The 95% CI (Confidence Interval) PPV (Positive Predictive Value) for myocardial infarction in females is 38 pg/mL, in males 51 pg/mL. The results should be used in conjunction with clinical conditions of myocardial infarction.(Access High Sensitivity Troponin I Instructions For Use, [facility], November 2017) Performed By: #### 1 8955811 ####[place] [address] UA With Cult Reflexon 2022 Bilirubin Ql (U) Negative Normal Negative [facility] Comment on above: Performed By: #### 1 9296021, 9828864 ####[address] [address] Clarity (U) CLEAR Normal Clear [facility] Comment on above: Performed By: #### 1 2033955, 3036460 ####[address] [address] Color (U) STRAW Abnormal Yellow [facility] Comment on above: Performed By: #### 1 4451907, 1961217 ####[address] [address] Epithelial cells.squamous LM.HPF (Urine sed) [#/Area] 0-2 Normal 0-2 [facility] Comment on above: Performed By: #### 1 2057251, 6625289 ####[address] [address] Glucose Test strip (U) [Mass/Vol] Negative Normal Negative [facility] Comment on above: Performed By: #### 1 0596104, 1598959 ####[address] [address] Hemoglobin Ql (U) TRACE Abnormal Negative [facility] Comment on above: Performed By: #### 1 9521092, 0976682 ####[place] [address] Ketones (U) [Mass/Vol] Negative Normal Negative [facility] Comment on above: Performed By: #### 1 0729986, 5239329 ####[place] [id number] [place].plasma/[place]. RBC (Bld) [Mass ratio] 0-3 Normal 0-3 [facility] Comment on above: Performed By: #### 1 [id number], [id number] ####[place] [id number] Nitrite Ql (U) Negative Normal Negative [facility] Comment on above: Performed By: #### 1 [id number], [id number] ####[place] [id number] pH (U) 5.5 [pH] Invalid Interpretation Code 5.0-9.0 [facility] Comment on above: Performed By: #### 1 [id number], [id number] ####[place] [id number] Protein (U) [Mass/Vol] Negative Normal Negative [facility] Comment on above: Performed By: #### 1 [id number], [id number] ####[place] [id number] Specific gravity (U) [Rel density] <=1.005 Invalid Interpretation Code 1.005-1.03 0 [facility] Comment on above: Performed By: #### 1 3918371, 1522223 ####[place] 0063957 Type of Urine collection method Clean Catch Normal [facility] Comment on above: Performed By: #### 1 9112074, 8873208 ####[address] [address] Urobilinogen Qn (U) 0.2 {Tj'U}/dL Normal 0.0-1.0 [facility] Comment on above: Performed By: #### 1 9054010, 4032641 ####[facility] [address] [place] [address] WBC Auto Ql (U) 1+ Abnormal Negative [facility] Comment on above: Performed By: #### 1 1998720, 2606471 ####[facility] [address] [place] [address] WBC LM.HPF (Urine sed) [#/Area] 6-15 Abnormal 0-5 [facility] Comment on above: Performed By: #### 1 8485320, 0221924 ####[facility] [address] [place] [address] UA Spec Desc Catheter Normal [facility] Comment on above: Result Comment: Mini cath specimen Performed By: #### 2 443950, [id number] ####[address] [address] Bacteria LM Ql (Urine sed) 2+ /HPF Abnormal Trace [facility] Comment on above: Performed By: #### 2 101642, 36816283 ####[facility] [address] [place] [address] Bilirubin Ql (U) Negative Normal Negative [facility] Comment on above: Performed By: #### 2 283790, 27452946 ####[address] [address] Clarity (U) CLEAR Normal Clear [facility] Comment on above: Performed By: #### 2 628496, 19673588 ####[facility] [address] [place] [address] Color (U) YELLOW Normal Yellow [facility] Comment on above: Performed By: #### 2 427446, 58879694 ####[facility] [address] [place] [address] Epithelial cells.squamous LM.HPF (Urine sed) [#/Area] 0-2 Normal 0-2 [facility] Comment on above: Performed By: #### 2 585012, 31959441 ####[facility] [address] [place] [address] Glucose Test strip (U) [Mass/Vol] Negative Normal Negative [facility] Comment on above: Performed By: #### 2 731163, 61889548 ####[facility] [address] [place] [address] Hemoglobin Ql (U) Negative Normal Negative [facility] Comment on above: Performed By: #### 2 680457, 29489815 ####[facility] [address] [place] [address] Ketones (U) [Mass/Vol] Negative Normal Negative [facility] Comment on above: Performed By: #### 2 949321, 83116561 ####[facility] [address] [place] [address] [place].plasma/[place]. RBC (Bld) [Mass ratio] 0-3 Normal 0-3 [facility] Comment on above: Performed By: #### 2 727510, [id number] ####[facility] [address] [place] [address] Nitrite Ql (U) Positive Abnormal Negative [facility] Comment on above: Performed By: #### 2 094178, 04303256 ####[facility] [address] [place] [address] pH (U) 6.0 [pH] Invalid Interpretation Code 5.0-9.0 [facility] Comment on above: Performed By: #### 2 506837, 61514053 ####[facility] [address] [place] [address] Protein (U) [Mass/Vol] Negative Normal Negative [facility] Comment on above: Performed By: #### 2 334211, 65718495 ####[facility] [address] [place] [address] Specific gravity (U) [Rel density] 1.025 Invalid Interpretation Code 1.005-1.03 0 [facility] Comment on above: Performed By: #### 2 863755, 17239662 ####[facility] [address] [place] [address] Urobilinogen Qn (U) 0.2 {Tj'U}/dL Normal 0.0-1.0 [facility] Comment on above: Performed By: #### 2 909664, 10991675 ####[facility] [address] [place] [address] WBC Auto Ql (U) TRACE Abnormal Negative [facility] Comment on above: Performed By: #### 2 529982, 96271442 ####[facility] [address] [place] [address] WBC LM.HPF (Urine sed) [#/Area] 0-5 Normal 0-5 [facility] Comment on above: Performed By: #### 2 239057, 00897552 ####[facility] [address] [place] [address] URINALYSISOrdered By: Lisette Medina on 12-20-2022 Bilirubin [...] PM) Normal Negative [facility] UA Auto SS [place].plasma/[place]. RBC (Bld) [Mass ratio] 0-3 /HPF Normal 0-3/HPF [facility] UA Auto SS Nitrite Ql (U) Negative (12/20/22 5:18 PM) Normal Negative [facility] UA Auto SS pH (U) 5.5 *NA* (12/20/22 5:18 PM) Invalid Interpretation Code 5.0 - 9.0 [facility] U[place] Auto SS Protein (U) [Mass/Vol] Negative (12/20/22 5:18 PM) Normal Negative [facility] UA Auto SS Specific gravity (U) [Rel density] <=1.005 *NA* (12/20/22 5:18 PM) Invalid Interpretation Code 1.005 - 1.030 [facility] UA Auto SS UA Spec Desc Clean Catch (12/20/22 5:18 PM) Normal [facility] UA Auto SS Urobilinogen Qn (U) 0.1150431 {Tj'U}/dL Normal 0.0 - 1.0 EU/dL [facility] UA Auto SS WBC Auto Ql (U) 1+ *ABN* (12/20/22 5:18 PM) Invalid Interpretation Code Negative [facility] UA Auto SS WBC LM.HPF (Urine sed) [#/Area] 6-15 /HPF Invalid Interpretation Code 0-5/HPF [facility] UA Auto SS XR Chest Single Viewon 12-20 XR Chest Single View Normal [facility] XR Chest Single View Normal [facility] eGFRon 12-20-2022 GFR/1.73 sq M.predicted among non-blacks MDRD (S/P/Bld) [Vol rate/Area] 43 mL/min/1.73 m2 Low >=59 [facility] Comment on above: Order Comment: Order added by Discern Expert. Result Comment: Purse Framer aubrey kidney disease could be indicated at eGFR's of less than 60 mL/min/1.73m2. Kidney failure is indicated at less than 15 mL/min/1.73m2. Performed By: #### 2 712171, 37362055, 4165616, 37470356, 7625364, 9737488 ####[facility] [address] [place] [address] Auto Diffon 12-19-2022 Basophils/100 WBC (Bld) 0.4 % Normal 0.0-2.0 [facility] Comment on above: Order Comment: Order Added by Discern Expert. Performed By: #### 2 908484, 07376804, 20316404, 5972025, 1920652, 25620287, 6638388, 5077187 ####[place] [address] [place] [address] Basophils/Leukocytes Auto (Bld) [Pure # fraction] 0.0 E9/L Normal 0.0-0.2 [facility] Comment on above: Order Comment: Order Added by Discern Expert. Performed By: #### 2 698794, 79467755, 84527907, 0268943, 3984261, 04918065, 9500409, 5576535 ####[place] [address] [place] [address] Eosinophils/100 WBC (Bld) 1.6 % Normal 0.0-8.0 [facility] Comment on above: Order Comment: Order Added by Discern Expert. Performed By: #### 2 682478, 26466420, 66688234, 8811190, 5617487, 07488906, 7312616, 0616707 ####[address] [address] Eosinophils/Leukocytes Auto (Bld) [Pure # fraction] 0.1 E9/L Normal 0.0-0.5 [facility] Comment on above: Order Comment: Order Added by Discern Expert. Performed By: #### 2 409524, 96375502, 26878886, 0215623, 9072998, 12357506, 6229616, 1237225 ####[address] [address] Lymphocytes/100 WBC (Bld) 34.4 % Normal 14.0-50.0 [facility] Comment on above: Order Comment: Order Added by Discern Expert. Performed By: #### 2 469540, 25798045, 96906162, 4240714, 6158112, 91518733, 5948359, 6124467 ####[place] [address] [place] [address] Lymphocytes/Leukocytes Auto (Bld) [Pure # fraction] 1.2 E9/L Normal 1.0-4.0 [facility] Comment on above: Order Comment: Order Added by Discern Expert. Performed By: #### 2 488614, 92787066, 44615103, 8572570, 1802993, 44657322, 9049358, 4368727 ####[facility] [address] [place] [address] Monocytes/100 WBC (Bld) 12.8 % Normal 4.0-14.0 [facility] Comment on above: Order Comment: Order Added by Discern Expert. Performed By: #### 2 239349, 41807488, 15879670, 8817420, 7755054, 50047052, 2012090, 4154273 ####[place] [address] [place] [address] Monocytes/Leukocytes Auto (Bld) [Pure # fraction] 0.4 E9/L Normal 0.2-1.0 [facility] Comment on above: Order Comment: Order Added by Faviola Expert. Performed By: #### 2 943942, 22374218, 16728079, 7803453, 2431587, 58543579, 2535894, 2970666 ####[place] [address] [place] [address] Neutrophils/100 WBC (Bld) 50.8 % Normal 36.0-75.0 [facility] Comment on above: Order Comment: Order Added by Faviola Expert. Performed By: #### 2 300717, 42428115, 00305525, 9636000, 4996193, 25935246, 0200678, 6025034 ####[facility] [address] [place] [address] Neutrophils/Leukocytes Auto (Bld) [Pure # fraction] 1.7 E9/L Low 2.0-7.5 [facility] Comment on above: Order Comment: Order Added by Faviola Expert. Performed By: #### 2 387947, 55893974, 19423024, 4211328, 8955063, 02789115, 4428133, 1329295 ####[facility] [address] [place] [address] BMPon 12-19-2022 Anion gap [Moles/Vol] 10 mmol/L Normal 6-[address] [facility] Comment on above: Performed By: #### 2 071363, 31964121, 45682170, 4224954, 8344522, 32023943, 3752591, 7677367 ####[facility] [address] [place] [address] Calcium [Mass/Vol] 9.4 mg/dL Normal 8.9-11.1 [facility] Comment on above: Performed By: #### 2 529242, 10185897, 78625777, 2091301, 8172540, 31012125, 0648151, 4824129 ####[facility] [address] [place] [address] Chloride [Moles/Vol] 111 mmol/L Normal 101-111 [facility] Comment on above: Performed By: #### 2 740108, 63482971, 85832998, 6841908, 0975003, 67426157, 4778895, 4395661 ####[facility] [address] [place] [address] CO2 [Moles/Vol] 25 mmol/L Normal 21-31 [facility] Comment on above: Performed By: #### 2 719448, 36044401, 82024962, 2535749, 8063941, 74463530, 0170377, 1353743 ####[facility] [address] [place] [address] Creatinine [Mass/Vol] 1.4 mg/dL High 0.5-1.[address] [facility] Comment on above: Performed By: #### 2 825518, 27705006, 84430797, 2219128, 1696633, 43204555, 4660638, 4657054 ####[facility] [address] [place] [address] Glucose [Mass/Vol] 165 mg/dL Normal 55-199 [facility] Comment on above: Result Comment: If t his glucose result represents a fasting glucose, interpretation should refer to the following reference range: 55-99 mg/dL Performed By: #### 2 484997, 44643112, 80804287, 6229895, 9213169, 08086390, 0936516, 9727332 ####[facility] [address] [place] [address] Potassium [Moles/Vol] 4.6 mmol/L Normal 3.5-5.[address] [facility] Comment on above: Performed By: #### 2 900955, 60746800, 66425927, 4379070, 4835036, 09130481, 6839207, 0042540 ####[facility] [address] [place] [address] Sodium [Moles/Vol] 141 mmol/L Normal 135-145 [facility] Comment on above: Performed By: #### 2 277391, 40787145, 08358662, 2931951, 7995244, 60155624, 3570038, 4081871 ####[facility] [address] [place] [address] Urea nitrogen [Mass/Vol] 36 mg/dL High 5-21 [facility] Comment on above: Performed By: #### 2 056229, 88657564, 30238536, 9176740, 0663911, 72973705, 1895341, 1526155 ####[facility] [address] [place] [address] Urea nitrogen/Creatinine [Mass ratio] 26 No Units High 10-20 [facility] Comment on above: Performed By: #### 2 281596, 36123387, 32414678, 6713630, 6844231, 03063232, 2726749, 4416760 ####[facility] [address] [place] [address] CBC w/ Auto Diffon 3 Erythrocyte distribution width (RBC) [Ratio] 18.9 % High 10.9-14.2 [facility] Comment on above: Performed By: #### 2 805023, 51098802, 85549700, 9878655, 9985887, 87538449, 4901440, 3722382 ####[facility] [address] [place] [address] Hematocrit (Bld) [Volume fraction] 32.2 % Low 34.0-46.0 [facility] Comment on above: Performed By: #### 2 470095, 56943617, 23514638, 9087159, 9334335, 99742647, 9668207, 9123961 ####[facility] [address] [place] [address] Hemoglobin (Bld) [Mass/Vol] 10.8 g/dL Low 12.0-16.0 [facility] Comment on above: Performed By: #### 2 147888, 86458394, 63962563, 0725442, 0223766, 32864976, 3383038, 7917797 ####[facility] [address] [place] [address] MCH (RBC) [Entitic mass] 33.5 pg Normal 27.0-34.0 [facility] Comment on above: Performed By: #### 2 004488, 31451467, 57686235, 5710781, 3659289, 89224471, 3807217, 2959209 ####[place] [address] [place] [address] MCHC (RBC) [Mass/Vol] 33.4 g/dL Normal 31.4-36.[address] [facility] Comment on above: Performed By: #### 2 294577, 93923707, 40488206, 0682483, 2414310, 19248050, 9188699, 9469066 ####[place] [address] [place] [address] MCV (RBC) [Entitic vol] 100.5 fL High 80.0-100.0 [facility] Comment on above: Performed By: #### 2 760310, 10017370, 00633770, 5601448, 7779659, 18692912, 9579529, 9235302 ####[facility] [address] [place] [address] Platelet mean volume (Bld) [Entitic vol] 7.0 fL Normal 6.4-10.8 [facility] Comment on above: Performed By: #### 2 824112, 53341872, 49474046, 6295928, 8158108, 25249554, 7252980, 3680166 ####[facility] [address] [place] [address] Platelets (Bld) [#/Vol] 204.0 E9/L Normal 150. 0-500. 0 [facility] Comment on above: Performed By: #### 2 009148, 10234252, 93508761, 0387246, 3426207, 96944797, 7644621, 1065830 ####[address] [address] RBC (Bld) [#/Vol] 3.2 E12/L Low 4.3-5.9 [facility] Comment on above: Performed By: #### 2 167011, 53018020, 62269707, 6341095, 3350166, 62385562, 8285745, 1221630 ####[place] [address] [place] [address] WBC corrected for nucl RBC Auto (Bld) [#/Vol] 3.4 E9/L Low 4.0-11.0 [facility] Comment on above: Performed By: #### 2 210486, 45393268, 80420656, 2235721, 4322331, 14685732, 1978623, 1399686 ####[place] [address] [place] [address] CHEMISTRYOrdered By: SYSTEM SYSTEM on 12-19-2022 Albumin [Mass/Vol] 3.5 g/dL Normal 3.3 - 5.0 gm/dL [facility] Remisol Albumin/Globulin [Mass ratio] 1.0 {ratio} Low [...] 32.2 % Low 34.0 - 46.0 % FT HemeAutoSS Hemoglobin (Bld) [Mass/Vol] 10.8 g/dL Low [...] 3.4 E9/L Low 4.0 - 11.0 E9/L FT HemeAutoSS Hep Func Panelon 12-19-2022 Albumin [Mass/Vol] 3.5 g/dL Normal 3.3-5.0 [facility] Comment on above: Performed By: #### 2 481171, 94267629, 96801225, 0266654, 2510643, 31970017, 1380872, 1098966 ####[facility] [address] [place] [address] Albumin/Globulin (S) [Mass conc ratio] 1.0 Low 1.1-2.2 [facility] Comment on above: Performed By: #### 2 929623, 14762474, 61836119, 4247762, 4250616, 26590057, 3623376, 9040367 ####[place] [address] [place] [address] ALP [Catalytic activity/Vol] 110 Int._Unit/L High 21-98 [facility] Comment on above: Performed By: #### 2 844534, 21962073, 20536636, 8987290, 2084791, 34932299, 7603113, 2700558 ####[address] [address] ALT No additional P-5'-P [Catalytic activity/Vol] 20 Int._Unit/L Normal 6-46 [facility] Comment on above: Performed By: #### 2 452878, 57766407, 16603721, 9640662, 7439651, 26616640, 8883223, 2229083 ####[place] [address]57 AST [Catalytic activity/Vol] 19 Int._Unit/L Normal 5-43 [facility] Comment on above: Performed By: #### 2 731784, 05900490, 12211675, 1041122, 3165938, 46801946, 8161102, 4206465 ####[address] [address] Bilirubin [Mass/Vol] 0.4 mg/dL Normal 0.0-1.1 [facility] Comment on above: Performed By: #### 2 529624, 20072160, 82054288, 1375133, 0883298, 89332422, 6810817, 9401066 ####[address] [address] Bilirubin.direct [Mass/Vol] 0.1 mg/dL Normal 0.1-0.4 [facility] Comment on above: Performed By: #### 2 808505, 45170335, 53909066, 5863419, 5760897, 34634566, 2891244, 5598415 ####[facility] [address] [place] [address] Bilirubin.indirect [Mass or moles/Vol] 0.3 mg/dL Normal 0.1-0.9 [facility] Comment on above: Performed By: #### 2 892294, 31703879, 12995686, 0805286, 3019228, 48875562, 8713277, 5855835 ####[facility] [address] [place] [address] Globulin (S) [Mass/Vol] 3.5 g/dL Normal 1.4-4.0 [facility] Comment on above: Performed By: #### 2 636718, 56185117, 20904085, 3535526, 0443837, 83040301, 4233846, 3017028 ####[facility] [address] [place] [address] Protein [Mass/Vol] 7.0 g/dL Normal 6.0-7.8 [facility] Comment on above: Performed By: #### 2 865721, 53054866, 21928722, 8199444, 8567665, 76923702, 0749523, 4677304 ####[facility] [address] [place] [address] Laboratory - Microbiology an d Antimicrobial susceptibilityOrdered By: Jeaneth Morfin on 12-19-2022 Bacteria identified Cx Nom (U) >100,000 cfu/ml Gram Negative [employer] species [facility] Magnesiumon 12-19-2022 Magnesium [Mass/Vol] 2.0 mg/dL Normal 1.3-2.4 [facility] Comment on above: Performed By: #### 2 667240, 48423038, 82859278, 3339815, 2619384, 53592063, 7445023, 8804548 ####[facility] [address] [place] [address] PT & PTTon 12-19-2022 aPTT Coag (PPP) [Time] 26.7 second(s) Normal 25.1-36.5 [facility] Comment on above: Result Comment: Para meter [...] the same coagulation reagent and instrumentation as [facility]. Currently there are no coagulation studies available worldwide for children to 14 days, and no normal ranges. Heparin therapeutic range (represented by Anti-Factor Xa activity of 0.2 - 0.4 U/mL) corresponds to PTT of 56.6 - 109.0 sec. Performed By: #### 2 755625, 76512622, 67985602, 7012504, 0536859, 89090832, 7684799, 2924955 ####[facility] [address] [place] [address] INR Coag (PPP) [Relative time] 1.0 {INR} Invalid Interpretation Code [facility] Comment on above: Result Comment: INR results are specifically intended to assess patients stabilized on long-term Anticoagulation therapy suggested INR?s ?Less Intensive Anticoagulation? 2.0 ? 3.0Conventional Range 3.0 ? 4.5 Performed By: #### 2 151213, 50812483, 30626249, 2087117, 3163385, 41160227, 9446863, 9462100 ####[facility] [address] [place] [address] PT Coag (PPP) [Time] 11.5 second(s) Normal 9.4-12.5 [facility] Comment on above: Result Comment: 15 d [...] the same coagulation reagent and instrumentation [place] [facility]. Currently there are no coagulation studies available worldwide for children to 14 days, and no normal ranges. Performed By: #### 2 629783, 82657596, 25138728, 8301203, 6817958, 84901518, 1376812, 2595686 ####[facility] [address] [place] [address] Pre-Arrival Noteon 3 Pre-Arrival Note Normal [facility] Troponin 0 Hr.on 12-19-2022 Troponin I.cardiac [Mass/Vol] 9.40 pg/mL Low 10.10-27.1 0 [facility] Comment on above: Result Comment: The 95% CI (Confidence Interval) PPV (Positive Predictive Value) for myocardial infarction in females is 38 pg/mL, in males 51 pg/mL. The results should be used in conjunction with clinical conditions of myocardial infarction.(Access High Sensitivity Troponin I Instructions For Use, Gaby Bridgeton, November 2017) Performed By: #### 2 556784, 76289490, 43551702, 7431005, 2194201, 08403007, 3069579, 0221008 ####[facility] [address] [place] [address] URINALYSISOrdered By: Evert Cordoba on 12-19-2022 Bacteria LM Ql (Urine sed) 2+ /HPF Invalid Interpretation Code Trace/HPF [facility] UA Auto SS Bilirubin Ql (U) Negative (12/19/22 10:25 PM) Normal Negative [facility] UA Auto SS Clarity (U) Clear (12/19/22 10:25 PM) Normal Clear [facility] UA Auto SS Color (U) Yellow (12/19/22 [...] PM) Normal Negative [facility] UA Auto SS [place].plasma/[place]. RBC (Bld) [Mass ratio] 0-3 /HPF Normal [...] Comment: Mini cath specimen Urobilinogen Qn (U) 0.4671926 {Tj'U}/dL Normal 0.0 - 1.0 EU/dL [facility] UA Auto SS WBC Auto Ql (U) Trace *ABN* (12/19/22 10:25 PM) Invalid Interpretation Code Negative [facility] UA Auto SS WBC LM.HPF (Urine sed) [#/Area] 0-5 /HPF Normal 0-5/HPF [facility] UA Auto SS eGFRon 12-19-2022 GFR/1.73 sq M.predicted among non-blacks MDRD (S/P/Bld) [Vol rate/Area] 40 mL/min/1.73 m2 Low >=59 [facility] Comment on above: Order Comment: Order added by Discern Expert. Result Comment: Purse Framer aubrey kidney disease could be indicated at eGFR's of less than 60 mL/min/1.73m2. Kidney failure is indicated at less than 15 mL/min/1.73m2. Performed By: #### 2 301413, 72860308, 02541112, 3093935, 2456061, 45284141, 8980811, 0455005 ####[facility] [address] [place] [address] CT Spine Lumbar w/o Contrast on 12-17-2022 CT Spine Lumbar w/o Contrast Normal [facility] Consent for Treatmenton 11-21 Consent for Treatment [id number]#1.00CD:1 27 Normal [facility] Discharge Instructionson Discharge Instructions [id number]#1.00CD:1 27 Normal [facility] ED Clinical Summaryon 2022 ED Clinical Summary Normal [facility] ED Note-Physicianon 12-18-19 ED Note-Physician Normal [facility] Comment on above: Result Comment: Elec tronically Signed By: Gui Scruggs PA-C\.br\Date and Time Signed: 12/17/22 13:40 EDT\.br\Electronically Co-Signed By: Jeffery Murphy DO\.br\Date and Time Co-Signed: 12/17/22 18:34 EDT ED Patient Education Noteon 12-17-2022 ED Patient Education Note Normal [facility] ED Patient Summaryon 023 ED Patient Summary Normal [facility] Fpc Recordson 12-17 [facility]pc Records [id number]#1.00CD:1 27 Normal [facility] XR Hip 2-3 Views Right + Pel vison 12-17-2022 XR Hip 2-3 Views Right + Pelvis Normal [facility] XR Spine Lumbosacral 2 or 3 Viewson 12-17-2022 XR Spine Lumbosacral 2 or 3 Views Normal [facility] Family Medicine Office/Clini c Noteon 12-14-2022 Family Medicine Office/Clinic Note Normal [facility] Comment on above: Result Comment: Elec tronically Signed By: Sammy QUEZADA MD\.br\Date and Time Signed: 12/14/22 16:36 EDT ONC - Otheron 12-12-2022 ONC - Other [id number]#1.00CD:1 27 Normal [facility] ONC - Otheron 12-04-2022 ONC - Other [id number]#1.00CD:1 27 [facility] ONC - Otheron 11-21-2022 ONC - Other [id number]#1.00CD:1 27 [facility] XR Pelvis 1 or 2 Viewson XR Pelvis 1 or 2 Views Normal [facility] RAD - MISCon 11-20-2022 RAD - MISC [id number]#1.00CD:1 27 Normal [facility] Family Medicine Office/Clini c Noteon 11-07-2022 Family Medicine Office/Clinic Note Normal [facility] Comment on above: Result Comment: Elec tronically Signed By: Sammy QUEZADA MD\.br\Date and Time Signed: 11/06/22 22:21 EDT Consultation Noteon 11-07-19 Consultation Note [facility] Comment on above: Result Comment: Elec tronically Signed By: Gavino Erickson DO\.br\Date and Time Signed: 11/06/22 07:17 EDT Discharge Documentationon Discharge Documentation [id number]#1.00CD:1 27 [facility] Message from Medicareon 10-20 Message from Medicare [id number]#1.00CD:1 27 [facility] Transfer Documentson 023 Transfer Documents [id number]#1.00CD:1 27 Normal [facility] Insurance Correspondence Off iceon 11-05-2022 Insurance Correspondence Office [id number]:12 7 Normal [facility] Inpatient Clinical Summaryon 11-04-2022 Inpatient Clinical Summary Normal [facility] Inpatient Patient Summaryon 11-04-2022 Inpatient Patient Summary Normal [facility] Inpatient Patient Summary Normal [facility] 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 Note - Attila e Manageron 11-04-2022 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 Note - Pathology Lab Technician [facility] Comment on above: Result Comment: Elec tronically Signed By: Florence Ortega\.br\Date and Time Signed: 11/04/22 13:07 EDT CHEMISTRYOrdered By: SYSTEM SYSTEM on 11-03-2022 25-hydroxyvitamin D3 [Mass/Vol] ng/mL Low 30.0 - 100.0 ng/mL [facility] 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 Note - Attlia e Manageron 11-03-2022 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 Note - Pathology Lab Technician [facility] Comment on above: Result Comment: Elec tronically Signed By: Florence Ortega\.br\Date and Time Signed: 11/03/22 10:38 EDT Progress Note-Physicianon Progress Note-Physician [facility] Comment on above: Result Comment: Elec tronically Signed By: Trevor HANKS, Wyatt\.br\Date and Time Signed: 11/03/22 08:08 EDT RPR with Conf Rfxon 11-04-19 Reagin Ab RPR Ql (S) Non-Reactive Invalid Interpretation Code Non Reactive [facility] Comment on above: Result Comment: Perf ormed at: [facility] [id number] PhD [place] Avelar Performed By: #### 2 499058, 7503280, [id number], [id number] ####[facility] [address] [place] [address] Vitamin D 25 Hydroxyon 11-03 25-hydroxyvitamin D3 [Mass/Vol] ng/mL Low 30.0-100.0 [facility] Comment on above: Result Comment: Vit beltran D deficiency has been defined as a level of serum 25-OH vitamin D less than 20 ng/mL (1,2) by the [place] of [employer] and an Endocrine Society practice guideline. The Endocrine Society further defined vitamin D insufficiency as a level between 21 and 29 ng/mL (2). 1. IOM ([place] of [employer]). 2010. Dietary reference intakes for calcium and D. [place]: The National Academies Press. 2. Katlin MF, Taylor ISRAEL, Jarad DUKE, et al. Evaluation, treatment, and prevention of vitamin D deficiency: an Endocrine Society clinical practice guideline. JCEM. 2010; 96 (7):1911-30. Performed By: #### 5 [id number] ####[facility] [address] [place] [address] Auto Diffon 11-02-2022 Basophils/100 WBC (Bld) 1.2 % Normal 0.0-2.0 [facility] Comment on above: Order Comment: Order Added by Discern Expert. Performed By: #### 2 527850, 6894813, 4105625, 3301822, 34620087, 15263688 ####[facility] [address] [place] [address] Basophils/Leukocytes Auto (Bld) [Pure # fraction] 0.1 E9/L Normal 0.0-0.2 [facility] Comment on above: Order Comment: Order Added by Discern Expert. Performed By: #### 2 310058, 8559360, 5760375, 1464089, 67829341, 33000370 ####[facility] [address] [place] [address] Eosinophils/100 WBC (Bld) 3.3 % Normal 0.0-8.0 [facility] Comment on above: Order Comment: Order Added by Discern Expert. Performed By: #### 2 657652, 0260007, 4343582, 6667395, 55909418, 90491601 ####[facility] [address] [place] [address] Eosinophils/Leukocytes Auto (Bld) [Pure # fraction] 0.2 E9/L Normal 0.0-0.5 [facility] Comment on above: Order Comment: Order Added by Discern Expert. Performed By: #### 2 134211, 8008884, 1786605, 5199919, 33260217, 29421859 ####[facility] [address] [place] [address] Lymphocytes/100 WBC (Bld) 24.6 % Normal 14.0-50.0 [facility] Comment on above: Order Comment: Order Added by Discern Expert. Performed By: #### 2 010035, 6136743, 0277250, 2863282, 17854603, 25923927 ####[address] [place] [address] Lymphocytes/Leukocytes Auto (Bld) [Pure # fraction] 1.6 E9/L Normal 1.0-4.0 [facility] Comment on above: Order Comment: Order Added by Discern Expert. Performed By: #### 2 283259, 9332772, 2782097, 0936681, 47954058, 46597808 ####[address] [address] Monocytes/100 WBC (Bld) 5.0 % Normal 4.0-14.0 [facility] Comment on above: Order Comment: Order Added by Discern Expert. Performed By: #### 2 706697, 7212148, 9454655, 1522197, 15368835, 46700582 ####[facility] [address] [place] [address] Monocytes/Leukocytes Auto (Bld) [Pure # fraction] 0.3 E9/L Normal 0.2-1.0 [facility] Comment on above: Order Comment: Order Added by Discern Expert. Performed By: #### 2 086850, 6906125, 9098419, 7295942, 36255585, 65858396 ####[address] [place] [address] Neutrophils/100 WBC (Bld) 65.9 % Normal 36.0-75.0 [facility] Comment on above: Order Comment: Order Added by Discern Expert. Performed By: #### 2 460370, 3343197, 1207932, 9113244, 69577596, 11677859 ####[facility] [address] [place] [address] Neutrophils/Leukocytes Auto (Bld) [Pure # fraction] 4.4 E9/L Normal 2.0-7.5 [facility] Comment on above: Order Comment: Order Added by Discern Expert. Performed By: #### 2 982616, 3264526, 6332494, 6069538, 58438807, 34746883 ####[facility] [address] [place] [address] BMPon 11-02-2022 Creatinine [Mass/Vol] 1.3 mg/dL Normal 0.5-1.[address] [facility] Comment on above: Performed By: #### 2 689811, 4411504, 0237422, 2089773, 32344948, 71235839 ####[facility] [address] [place] [address] Urea nitrogen [Mass/Vol] 26 mg/dL High 5-21 [facility] Comment on above: Performed By: #### 2 363845, 0096710, 3528027, 4779027, 41710588, 39219794 ####[facility] [address] [place] [address] Urea nitrogen/Creatinine [Mass ratio] 20 No Units Normal 10-20 [facility] Comment on above: Performed By: #### 2 541783, 4815261, 9189692, 4647907, 21702600, 53455218 ####[facility] [address] [place] [address] Anion gap [Moles/Vol] 15 mmol/L Normal 6-[address] [facility] Comment on above: Performed By: #### 2 700872, 2991343, 0553131, 4401155, 61935615, 70338873 ####[facility] [address] [place] [address] Calcium [Mass/Vol] 9.1 mg/dL Normal 8.9-11.1 [facility] Comment on above: Performed By: #### 2 413731, 2383631, 8236010, 2087771, 94024560, 61018474 ####[facility] [address] [place] [address] Chloride [Moles/Vol] 105 mmol/L Normal 101-111 [facility] Comment on above: Performed By: #### 2 767578, 5302465, 5695934, 7173561, 53500880, 07572583 ####[facility] [address] [place] [address] CO2 [Moles/Vol] 22 mmol/L Normal 21-31 [facility] Comment on above: Performed By: #### 2 355676, 4393236, 6040383, 2592793, 96975718, 22090617 ####[facility] [address] [place] [address] Glucose [Mass/Vol] 130 mg/dL Normal 55-199 [facility] Comment on above: Result Comment: If t his glucose result represents a fasting glucose, interpretation should refer to the following reference range: 55-99 mg/dL Performed By: #### 2 777973, 6373071, 9490654, 0050779, 45195411, 87324785 ####[facility] [address] [place] [address] Potassium [Moles/Vol] 4.2 mmol/L Normal 3.5-5.[address] [facility] Comment on above: Performed By: #### 2 168132, 5454952, 5723105, 5236564, 26125108, 74739363 ####[facility] [address] [place] [address] Sodium [Moles/Vol] 138 mmol/L Normal 135-145 [facility] Comment on above: Performed By: #### 2 227129, 7424227, 3238984, 7884490, 62767760, 87045589 ####[facility] [address] [place] [address] CBC w/ Auto Diffon 3 Erythrocyte distribution width (RBC) [Ratio] 16.3 % High 10.9-14.2 [facility] Comment on above: Performed By: #### 2 795831, 0108464, 5694248, 3971109, 26590729, 26381807 ####[address] [place] [address] Hematocrit (Bld) [Volume fraction] 36.5 % Normal 34.0-46.0 [facility] Comment on above: Performed By: #### 2 916213, 4241361, 9496566, 7409313, 80608720, 53586478 ####[address] [address] Hemoglobin (Bld) [Mass/Vol] 12.1 g/dL Normal 12.0-16.0 [facility] Comment on above: Performed By: #### 2 563543, 6812707, 9245742, 1061818, 03335276, 31667693 ####[address] [address] MCH (RBC) [Entitic mass] 32.9 pg Normal 27.0-34.0 [facility] Comment on above: Performed By: #### 2 008036, 2698757, 9472286, 9336654, 74262250, 19877659 ####[address] [place] [address] MCHC (RBC) [Mass/Vol] 33.1 g/dL Normal 31.4-36.[address] [facility] Comment on above: Performed By: #### 2 173340, 7253990, 9352424, 2517953, 50819547, 22137790 ####[address] [address] MCV (RBC) [Entitic vol] 99.3 fL Normal 80.0-100.0 [facility] Comment on above: Performed By: #### 2 638931, 6302714, 3828585, 1414680, 82232981, 78815095 ####[facility] [address] [place] [address] Platelet mean volume (Bld) [Entitic vol] 7.3 fL Normal 6.4-10.8 [facility] Comment on above: Performed By: #### 2 050930, 5901343, 4522734, 7103627, 64391012, 51453213 ####[facility] [address] [place] [address] Platelets (Bld) [#/Vol] 229.0 E9/L Normal 150. 0-500. 0 [facility] Comment on above: Performed By: #### 2 158277, 3248747, 8430905, 9527618, 79306946, 31614697 ####[facility] [address] [place] [address] RBC (Bld) [#/Vol] 3.7 E12/L Low 4.3-5.9 [facility] Comment on above: Performed By: #### 2 353151, 3993859, 9066256, 8161968, 18084756, 57154253 ####[address] [place] [address] WBC corrected for nucl RBC Auto (Bld) [#/Vol] 6.6 E9/L Normal 4.0-11.0 [facility] Comment on above: Performed By: #### 2 122236, 8306520, 2015264, 2476737, 43799392, 76354281 ####[address] [place] [address] CT Pelvis w/o Contraston CT Pelvis w/o Contrast Normal boogie [facility] ED Clinical Summaryon 2022 ED Clinical Summary Normal Debbie gutierrez [facility] ED Note-Physicianon 11-03-19 ED Note-Physician Radiologist has read the x-ray of the sacrum and there is discrepancy. He is reading he has a left pubic rami fracture. The patient has been admitted to the hospital.The hospitalist notified. Normal [facility] Comment on above: Result Comment: Elec tronically Signed By: Alok Cai M.D.\.br\Date and Time Signed: 11/02/22 07:41 EDT ED Note-Physician Normal [facility] Comment on above: Result Comment: Elec tronically Signed By: Kelly Meredith DO\.br\Date and Time Signed: 11/02/22 00:27 EDT ED Patient Education Noteon 11-02-2022 ED Patient Education Note Normal [facility] ED Patient Summaryon 023 ED Patient Summary Normal [facility] ED Traumaon 11-02-2022 ED Trauma [id number]:1 27 Normal [facility] FolateOrdered By: SYSTEM SYS TEM on 11-02-2022 Folate [Mass/Vol] 11.4 ng/mL Normal >=6.7 [facility] Comment on above: Performed By: #### 2 221338, 6223866, 051763165, 29858428 ####[facility] [address] [place] [address] Hep Func Panelon 11-02-2022 Albumin [Mass/Vol] 3.5 g/dL Normal 3.3-5.0 [facility] Comment on above: Performed By: #### 2 278513, 2168155, 5588445, 8250820, 07765374, 97542401 ####[facility] [address] [place] [address] Albumin/Globulin (S) [Mass conc ratio] 1.0 Low 1.1-2.2 [facility] Comment on above: Performed By: #### 2 089502, 8627571, 9047074, 8013369, 75754642, 28519931 ####[facility] [address] [place] [address] ALP [Catalytic activity/Vol] 110 Int._Unit/L High 21-98 [facility] Comment on above: Performed By: #### 2 981843, 8072547, 4533323, 7557281, 92435177, 75739317 ####[address] [address] ALT No additional P-5'-P [Catalytic activity/Vol] 13 Int._Unit/L Normal 6-46 [facility] Comment on above: Performed By: #### 2 546859, 4878601, 9066916, 3451080, 41349479, 36162577 ####[address] AST [Catalytic activity/Vol] 20 Int._Unit/L Normal 5-43 [facility] Comment on above: Performed By: #### 2 038808, 0554575, 5929106, 7075589, 68411721, 48082487 ####[address] [address] Bilirubin [Mass/Vol] 0.9 mg/dL Normal 0.0-1.1 [facility] Comment on above: Performed By: #### 2 728612, 4088765, 6817720, 1100478, 82208335, 69297735 ####[address] [address] Bilirubin.direct [Mass/Vol] 0.2 mg/dL Normal 0.1-0.4 [facility] Comment on above: Performed By: #### 2 089237, 7624090, 9055025, 8160815, 05781624, 93749797 ####[address] [address] Bilirubin.indirect [Mass or moles/Vol] 0.7 mg/dL Normal 0.1-0.9 [facility] Comment on above: Performed By: #### 2 966913, 7008549, 7100247, 4128596, 64666832, 01619658 ####[facility] [address] [place] [address] Globulin (S) [Mass/Vol] 3.4 g/dL Normal 1.4-4.0 [facility] Comment on above: Performed By: #### 2 932978, 5429833, 9728886, 9029993, 03014030, 92781775 ####[facility] [address] [place] [address] Protein [Mass/Vol] 6.9 g/dL Normal 6.0-7.8 [facility] Comment on above: Performed By: #### 2 011619, 3570259, 5647066, 8510956, 85914218, 86207292 ####[facility] [address] [place] [address] Insurance Correspondence Off iceon 11-02-2022 Insurance Correspondence Office [id number]:12 7 Normal [facility] 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 Note - Attila e Manageron 11-02-2022 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 Note - Pathology Lab Technician [facility] Comment on above: Result Comment: Elec tronically Signed By: Florence Ortega\.br\Date and Time Signed: 11/02/22 14:23 EDT 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 Note - Rafat n 11-02-2022 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 Note - OT Normal [facility] 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 Note - Soc ial Workeron 11-02-2022 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 Note - Pelletizer [facility] Monitor Recordon 11-02-2022 Monitor Record [id number]:1 27 Normal [facility] Progress Note-Physicianon Progress Note-Physician Normal [facility] Comment on above: Result Comment: Elec tronically Signed By: Gavino Erickson DO\.br\Date and Time Signed: 11/02/22 15:25 EDT Progress Note-Physician Normal [facility] Comment on above: Result Comment: Elec tronically Signed By: Trevor HANKS, Wyatt\.br\Date and Time Signed: 11/02/22 12:22 EDT Reference Laboratory Testing Ordered By: Generated DomainUser on 11-02-2022 Reagin Ab RPR Ql (S) Non-Reactive Invalid Interpretation Code Non Reactive [facility] Comment on above: Result Comment: Perf ormed at: [facility] [address] [id number] PhD [place] Avelar TSH With T4fr ReflexOrdered By: SYSTEM SYSTEM on 11-02-2022 TSH Qn 0.93 m[IU]/L Normal 0.34-5.60 [facility] Comment on above: Performed By: #### 2 995858, 1770603, 759548048, 70760927 ####[facility] [address] [place] [address] Troponin 0 Hr.on 11-02-2022 Troponin I.cardiac [Mass/Vol] 7.50 pg/mL Low 10.10-27.1 0 [facility] Comment on above: Result Comment: The 95% CI (Confidence Interval) PPV (Positive Predictive Value) for myocardial infarction in females is 38 pg/mL, in males 51 pg/mL. The results should be used in conjunction with clinical conditions of myocardial infarction.(Access High Sensitivity Troponin I Instructions For Use, Gaby [employer], November 2017) Performed By: #### 2 232661, 0745667, 6756547, 9510907, 97625685, 73717567 ####[facility] [address] [place] [address] UA With Cult Reflexon 2022 Bacteria LM Ql (Urine sed) TRACE Normal Trace [facility] Comment on above: Order Comment: Urina ry Catheter Insertion triggered Urinalysis With Culture Reflex order by discern. Performed By: #### 1 0492817 ####[facility] [address] [place] [address] Bilirubin Ql (U) Negative Normal Negative [facility] Comment on above: Order Comment: Urina ry Catheter Insertion triggered Urinalysis With Culture Reflex order by discern. Performed By: #### 1 0861324 ####[facility] [address] [place] [address] Clarity (U) CLEAR Normal Clear [facility] Comment on above: Order Comment: Urina ry Catheter Insertion triggered Urinalysis With Culture Reflex order by discern. Performed By: #### 1 0668925 ####[address] [address] Color (U) YELLOW Normal Yellow [facility] Comment on above: Order Comment: Urina ry Catheter Insertion triggered Urinalysis With Culture Reflex order by discern. Performed By: #### 1 3361022 ####[address] [address] Epithelial cells.squamous LM.HPF (Urine sed) [#/Area] 3-4 Normal 0-2 [facility] Comment on above: Order Comment: Urina ry Catheter Insertion triggered Urinalysis With Culture Reflex order by discern. Performed By: #### 1 1548646 ####[facility] [address] [place] [address] Glucose Test strip (U) [Mass/Vol] Negative Normal Negative [facility] Comment on above: Order Comment: Urina ry Catheter Insertion triggered Urinalysis With Culture Reflex order by discern. Performed By: #### 1 2225153 ####[facility] [address] [place] [address] Hemoglobin Ql (U) TRACE Abnormal Negative [facility] Comment on above: Order Comment: Urina ry Catheter Insertion triggered Urinalysis With Culture Reflex order by discern. Performed By: #### 1 6427962 ####[facility] [address] [place] [address] Ketones (U) [Mass/Vol] TRACE Abnormal Negative [facility] Comment on above: Order Comment: Urina ry Catheter Insertion triggered Urinalysis With Culture Reflex order by discern. Performed By: #### 1 8208289 ####[facility] [address] [place] [address] [place].plasma/[place]. RBC (Bld) [Mass ratio] 4-20 Normal 0-3 [facility] Comment on above: Order Comment: Urina ry Catheter Insertion triggered Urinalysis With Culture Reflex order by discern. Performed By: #### 1 0893504 ####[address] [address] Nitrite Ql (U) Negative Normal Negative [facility] Comment on above: Order Comment: Urina ry Catheter Insertion triggered Urinalysis With Culture Reflex order by discern. Performed By: #### 1 5257904 ####[address] [address] pH (U) 6.0 [pH] Invalid Interpretation Code 5.0-9.0 [facility] Comment on above: Order Comment: Urina ry Catheter Insertion triggered Urinalysis With Culture Reflex order by discern. Performed By: #### 1 3306811 ####[address] [address] Protein (U) [Mass/Vol] TRACE Abnormal Negative [facility] Comment on above: Order Comment: Urina ry Catheter Insertion triggered Urinalysis With Culture Reflex order by discern. Performed By: #### 1 2903515 ####[address] [address] Specific gravity (U) [Rel density] 1.025 Invalid Interpretation Code 1.005-1.03 0 [facility] Comment on above: Order Comment: Urina ry Catheter Insertion triggered Urinalysis With Culture Reflex order by discern. Performed By: #### 1 5280674 ####[address] [address] Type of Urine collection method Catheter Normal [facility] Comment on above: Order Comment: Urina ry Catheter Insertion triggered Urinalysis With Culture Reflex order by discern. Performed By: #### 1 4019641 ####[address] [address] Urobilinogen Qn (U) 1.0 {Tj'U}/dL Normal 0.0-1.0 [facility] Comment on above: Order Comment: Urina ry Catheter Insertion triggered Urinalysis With Culture Reflex order by discern. Performed By: #### 1 4919730 ####[address] [place] [address] WBC Auto Ql (U) Negative Normal Negative [facility] Comment on above: Order Comment: Urina ry Catheter Insertion triggered Urinalysis With Culture Reflex order by discern. Performed By: #### 1 2087000 ####[facility] [address] [place] [address] WBC LM.HPF (Urine sed) [#/Area] 0-5 Normal 0-5 [facility] Comment on above: Order Comment: Urina ry Catheter Insertion triggered Urinalysis With Culture Reflex order by discern. Performed By: #### 1 9592200 ####[facility] [address] [place] [address] Bilirubin Ql (U) Negative Normal Negative [facility] Comment on above: Performed By: #### 1 5042332 ####[address] [address] Clarity (U) SL CLOUDY Invalid Interpretation Code [facility] Comment on above: Performed By: #### 1 6728223 ####[facility] [address] [place] [address] Color (U) YELLOW Normal Yellow [facility] Comment on above: Performed By: #### 1 4237918 ####[address] [address] Epithelial cells.squamous LM.HPF (Urine sed) [#/Area] 0-2 Normal 0-2 [facility] Comment on above: Performed By: #### 1 2354432 ####[address] [address] Glucose Test strip (U) [Mass/Vol] Negative Normal Negative [facility] Comment on above: Performed By: #### 1 3204532 ####[address] [address] Hemoglobin Ql (U) 3+ Abnormal Negative [facility] Comment on above: Performed By: #### 1 5238305 ####[address] [address] Ketones (U) [Mass/Vol] TRACE Invalid Interpretation Code Negative [facility] Comment on above: Performed By: #### 1 8473602 ####[facility] [address] [place] [address] [place].plasma/[place]. RBC (Bld) [Mass ratio] 21-30 Abnormal 0-3 [facility] Comment on above: Performed By: #### 1 2250617 ####[facility] [address] [place] [address] Mucus Ql (Urine sed) 1+ Normal [facility] Comment on above: Performed By: #### 1 2494307 ####[address] [place] [address] Nitrite Ql (U) Negative Normal Negative [facility] Comment on above: Performed By: #### 1 4834527 ####[address] [address] pH (U) 6.0 [pH] Invalid Interpretation Code 5.0-9.0 [facility] Comment on above: Performed By: #### 1 8148710 ####[facility] [address] [place] [address] Protein (U) [Mass/Vol] 1+ Abnormal Negative [facility] Comment on above: Performed By: #### 1 1476829 ####[address] [address] Specific gravity (U) [Rel density] 1.025 Invalid Interpretation Code 1.005-1.03 0 [facility] Comment on above: Performed By: #### 1 6521063 ####[facility] [address] [place] [address] Type of Urine collection method Clean Catch Normal [facility] Comment on above: Performed By: #### 1 5599202 ####[facility] [address] [place] [address] Urobilinogen Qn (U) 2.0 {Tj'U}/dL Abnormal 0.0-1.0 [facility] Comment on above: Performed By: #### 1 3165885 ####[facility] [address] [place] [address] WBC Auto Ql (U) Negative Normal Negative [facility] Comment on above: Performed By: #### 1 9201848 ####[facility] [address] [facility] [place] [address] WBC LM.HPF (Urine sed) [#/Area] 0-5 Normal 0-5 [facility] Comment on above: Performed By: #### 1 0571628 ####[facility] [address] [facility] [place] [address] URINALYSISOrdered By: Dianne Villa on 11-02-2022 Bacteria [...] Interpretation Code Negative [facility] UA Auto SS [place].plasma/[place]. RBC (Bld) [Mass ratio] 4-20 /HPF Normal [...] FT UA Auto SS Urobilinogen Qn (U) 1.0847698 {Tj'U}/dL Normal 0.0 - 1.0 EU/dL FT UA Auto SS WBC Auto Ql (U) Negative (11/02/22 5:30 PM) Normal Negative [facility] UA Auto SS WBC LM.HPF (Urine sed) [#/Area] 0-5 /HPF Normal 0-5/HPF [facility] UA Auto SS Vit [id number] By: Simbiosis STEM on 11-02-2022 Cobalamin (Vitamin B12) [Mass/Vol] 470 pg/mL Normal 50-1500 [facility] Comment on above: Performed By: #### 2 647712, 6969382, 345611093, 71216206 ####[facility] [address] [place] [address] XR Chest Single Viewon 11-02 XR Chest Single View Normal [facility] XR Pelvis 1 or 2 Viewson XR Pelvis 1 or 2 Views Normal Fi [facility] XR Sacrum and Coccyx Min 2 V iewson 11-02-2022 XR Sacrum and Coccyx Min 2 Views Normal [facility] eGFRon 11-02-2022 GFR/1.73 sq M.predicted among non-blacks MDRD (S/P/Bld) [Vol rate/Area] 43 mL/min/1.73 m2 Low >=59 [facility] Comment on above: Order Comment: Order added by Discern Expert. Result Comment: Purse Framer aubrey kidney disease could be indicated at eGFR's of less than 60 mL/min/1.73m2. Kidney failure is indicated at less than 15 mL/min/1.73m2. Performed By: #### 2 710341, 7704518, 8929349, 0736614, 02436534, 18158247 ####[facility] [address] [place] [address] CHEMISTRYOrdered By: SYSTEM SYSTEM on 11-01-2022 Albumin [...] for Treatmenton 10-20 Consent for Treatment [id number]#1.00CD:12 7 Normal [facility] HEMATOLOGYOrdered By: SYSTEM SYSTEM on 11-01-2022 Basophils/100 [...] Interpretation Code Negative [facility] UA Auto SS [place].plasma/[place]. RBC (Bld) [Mass ratio] 21-30 /HPF Invalid [...] [facility] UA Auto SS Urobilinogen Qn (U) [id number] {Tj'U}/dL Inv alid Interpretation Code 0.0 - 1.0 EU/dL [facility] UA Auto SS WBC Auto Ql (U) Negative (11/01/22 11:20 PM) Normal Negative [facility] UA Auto SS WBC LM.HPF (Urine sed) [#/Area] 0-5 /HPF Normal 0-5/HPF [facility] UA Auto SS ONC - Otheron 10-30-2022 ONC - Other [id number]#1.00CD:1 27 Normal [facility] 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 Note - Soc ial Workeron 10-05-2022 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 Note - Pelletizer Normal [facility] Oncology Progress Noteon Oncology Progress Note Normal [facility] Consent for Treatmenton Consent for Treatment [id number]#1.00CD:12 7 Normal [facility] CA 27 29on 09-26-2022 Cancer Ag 27-29 Qn 17.7 unit/mL Invalid Interpretation Code 0.0-38.6 [facility] Comment on above: Result Comment: [facility] Immunochemiluminometric Methodology (ICMA)Values obtained with different assay methods or kits cannot be usedinterchangeably. Results cannot be interpreted as absolute evidenceof the presence or absence of malignant disease.Performed at: [facility] [place], [place] [id number] PhD [place] Avelar Performed By: #### 1 9916198, 1482513, 8204383, 01593140, 0983820 ####[facility] [address] [place] [address] Auto Diffon 09-25-2022 Basophils/100 WBC (Bld) 3.0 % High 0.0-2.0 [facility] Comment on above: Order Comment: Order Added by Discern Expert. Performed By: #### 1 8649792, 4275686, 0889820, 98749684, 6287593 ####[facility] [address] [place] [address] Basophils/Leukocytes Auto (Bld) [Pure # fraction] 0.1 E9/L Normal 0.0-0.2 [facility] Comment on above: Order Comment: Order Added by Discern Expert. Performed By: #### 1 3684709, 6650230, 1854399, 91172953, 1673387 ####[facility] [address] [place] [address] Eosinophils/100 WBC (Bld) 3.1 % Normal 0.0-8.0 [facility] Comment on above: Order Comment: Order Added by Discern Expert. Performed By: #### 1 0011791, 6689044, 5189401, 08421506, 1404383 ####[place] [place] [address] Eosinophils/Leukocytes Auto (Bld) [Pure # fraction] 0.1 E9/L Normal 0.0-0.5 [facility] Comment on above: Order Comment: Order Added by Discern Expert. Performed By: #### 1 6017242, 2192041, 7720909, 18312031, 0171956 ####[address] [place] [address] Lymphocytes/100 WBC (Bld) 37.1 % Normal 14.0-50.0 [facility] Comment on above: Order Comment: Order Added by Discern Expert. Performed By: #### 1 5759297, 2251891, 0013710, 76844595, 7361299 ####[address] [place] [address] Lymphocytes/Leukocytes Auto (Bld) [Pure # fraction] 1.3 E9/L Normal 1.0-4.0 [facility] Comment on above: Order Comment: Order Added by Discern Expert. Performed By: #### 1 1998711, 1698443, 3176245, 13177580, 6145326 ####[address] [address] Monocytes/100 WBC (Bld) 8.5 % Normal 4.0-14.0 [facility] Comment on above: Order Comment: Order Added by Discern Expert. Performed By: #### 1 1687394, 6691434, 9908587, 06366956, 3338749 ####[address] [address] Monocytes/Leukocytes Auto (Bld) [Pure # fraction] 0.3 E9/L Normal 0.2-1.0 [facility] Comment on above: Order Comment: Order Added by Discern Expert. Performed By: #### 1 0577350, 4424008, 4825483, 62176384, 7862954 ####[address] [place] [address] Neutrophils/100 WBC (Bld) 48.3 % Normal 36.0-75.0 [facility] Comment on above: Order Comment: Order Added by Discern Expert. Performed By: #### 1 7406202, 2916913, 7285428, 40136013, 3570451 ####[address] [address] Neutrophils/Leukocytes Auto (Bld) [Pure # fraction] 1.7 E9/L Low 2.0-7.5 [facility] Comment on above: Order Comment: Order Added by Discern Expert. Performed By: #### 1 2929464, 9752004, 3092429, 17159324, 8429477 ####[facility] [address] [place] [address] CBC w/ Auto Diffon 3 Erythrocyte distribution width (RBC) [Ratio] 16.6 % High 10.9-14.2 [facility] Comment on above: Performed By: #### 1 4544005, 3437171, 2858869, 34599713, 1353948 ####[address] [place] [address] Hematocrit (Bld) [Volume fraction] 29.4 % Low 34.0-46.0 [facility] Comment on above: Performed By: #### 1 7194462, 5811220, 7720007, 54010884, 5260539 ####[facility] [address] [place] [address] Hemoglobin (Bld) [Mass/Vol] 10.0 g/dL Low 12.0-16.0 [facility] Comment on above: Performed By: #### 1 0412800, 1260639, 1503155, 49278275, 9965034 ####[address] [place] [address] MCH (RBC) [Entitic mass] 34.5 pg High 27.0-34.0 [facility] Comment on above: Performed By: #### 1 8247371, 9294219, 7620971, 76971721, 8005288 ####[facility] [address] [place] [address] MCHC (RBC) [Mass/Vol] 34.0 g/dL Normal 31.4-36.[address] [facility] Comment on above: Performed By: #### 1 3197278, 3283506, 3440524, 19280368, 3444962 ####[address] [address] MCV (RBC) [Entitic vol] 101.5 fL High 80.0-100.0 [facility] Comment on above: Performed By: #### 1 7540998, 9644879, 9892479, 29962018, 6319628 ####[facility] [address] [place] [address] Platelet mean volume (Bld) [Entitic vol] 8.0 fL Normal 6.4-10.8 [facility] Comment on above: Performed By: #### 1 3645645, 2620983, 3645374, 00676325, 2232526 ####[address] [place] [address] Platelets (Bld) [#/Vol] 177.0 E9/L Normal 150. 0-500. 0 [facility] Comment on above: Performed By: #### 1 4176120, 0482119, 3800882, 41060424, 7195905 ####[place] [address] RBC (Bld) [#/Vol] 2.9 E12/L Low 4.3-5.9 [facility] Comment on above: Performed By: #### 1 3864161, 4189359, 2177498, 66617633, 7185715 ####[address] [place] [address] WBC corrected for nucl RBC Auto (Bld) [#/Vol] 3.4 E9/L Low 4.0-11.0 [facility] Comment on above: Performed By: #### 1 5376622, 3233571, 9442884, 12888815, 2050228 ####[address] [place] [id number] CHEMISTRYOrdered By: SYSTEM SYSTEM on 09-25-2022 Albumin [...] 53 mL/min/1.73 m2 Low >=59mL/min /1.73 m2 FT Chem S Globulin (S) [Mass/Vol] 4.0 g/dL [...] High 10 - 20 [facility] CMPon 09-25-2022 Albumin [Mass/Vol] 3.1 g/dL Low 3.3-5.0 [facility] Comment on above: Performed By: #### 1 3664470, 4770306, 0489117, 23148810, 1744359 ####[facility] [address] [place] [address] Albumin/Globulin (S) [Mass conc ratio] 0.8 Low 1.1-2.2 [facility] Comment on above: Performed By: #### 1 6824802, 6804272, 8012233, 87586659, 8390913 ####[facility] [address] [place] [address] ALP [Catalytic activity/Vol] 131 Int._Unit/L High 21-98 [facility] Comment on above: Performed By: #### 1 8516225, 2296084, 2325234, 60910048, 6018983 ####[address] [place] [address] ALT No additional P-5'-P [Catalytic activity/Vol] 13 Int._Unit/L Normal 6-46 [facility] Comment on above: Performed By: #### 1 7884575, 9930562, 6802433, 81256357, 2411487 ####[facility] [address] [place] [address] Anion gap [Moles/Vol] 5 mmol/L Low 6-[address] [facility] Comment on above: Performed By: #### 1 3358977, 5553345, 3480378, 90617263, 8583606 ####[facility] [address] [place] [address] AST [Catalytic activity/Vol] 16 Int._Unit/L Normal 5-43 [facility] Comment on above: Performed By: #### 1 4127466, 1101985, 6553590, 90921029, 7345313 ####[facility] [address] [place] [address] Bilirubin [Mass/Vol] 0.5 mg/dL Normal 0.0-1.1 [facility] Comment on above: Performed By: #### 1 2317373, 4893017, 3979069, 33162163, 7556064 ####[facility] [address] [place] [address] Calcium [Mass/Vol] 8.9 mg/dL Normal 8.9-11.1 [facility] Comment on above: Performed By: #### 1 6963728, 8368321, 4848461, 16979666, 6809171 ####[facility] [address] [place] [address] Chloride [Moles/Vol] 114 mmol/L High 101-111 [facility] Comment on above: Performed By: #### 1 9517912, 7058678, 0966567, 00022051, 5674707 ####[facility] [address] [place] [address] CO2 [Moles/Vol] 25 mmol/L Normal 21-31 [facility] Comment on above: Performed By: #### 1 2630408, 6737033, 4194926, 48340230, 4040613 ####[facility] [address] [place] [address] Creatinine [Mass/Vol] 1.1 mg/dL Normal 0.5-1.[address] [facility] Comment on above: Performed By: #### 1 8595193, 6223965, 6196927, 15129171, 2742857 ####[facility] [address] [place] [address] Globulin (S) [Mass/Vol] 4.0 g/dL Normal 1.4-4.0 [facility] Comment on above: Performed By: #### 1 0428670, 5165574, 3707924, 59152056, 3536414 ####[facility] [address] [place] [address] Glucose [Mass/Vol] 134 mg/dL Normal 55-199 [facility] Comment on above: Result Comment: If t his glucose result represents a fasting glucose, interpretation should refer to the following reference range: 55-99 mg/dL Performed By: #### 1 2156103, 3201326, 0843985, 68264610, 2973064 ####[facility] [address] [place] [address] Potassium [Moles/Vol] 3.8 mmol/L Normal 3.5-5.[address] [facility] Comment on above: Performed By: #### 1 0508468, 2026864, 3405848, 46058132, 9267826 ####[facility] [address] [place] [address] Protein [Mass/Vol] 7.1 g/dL Normal 6.0-7.8 [facility] Comment on above: Performed By: #### 1 9191414, 7479482, 3067810, 28884363, 3743779 ####[facility] [address] [place] [address] Sodium [Moles/Vol] 140 mmol/L Normal 135-145 [facility] Comment on above: Performed By: #### 1 3430841, 0734059, 1622433, 99428905, 2705995 ####[facility] [address] [place] [address] Urea nitrogen [Mass/Vol] 24 mg/dL High 5-21 [facility] Comment on above: Performed By: #### 1 0041447, 6737975, 5252416, 61055205, 4905597 ####[facility] [address] [place] [address] Urea nitrogen/Creatinine [Mass ratio] 22 No Units High 10-20 [facility] Comment on above: Performed By: #### 1 1196131, 3232397, 6028828, 99009731, 6461693 ####[facility] [address] [place] [address] Consent for Treatmenton Consent for Treatment [id number]#1.00CD:12 7 Normal [facility] HEMATOLOGYOrdered By: SYSTEM SYSTEM on 09-25-2022 Basophils/100 [...] 500.0 E9/L FT HemeAutoSS RBC (Bld) [#/Vol] 2.9 E12/L Low 4.3 - 5.9 E12/L FT HemeAutoSS WBC corrected for nucl RBC Auto (Bld) [#/Vol] 3.4 E9/L Low 4.0 - 11.0 E9/L [facility] HemeAutoSS ONC - Otheron 09-25-2022 ONC - Other [id number] [id number]#1.00CD: 127 Normal [facility] eGFRon 09-25-2022 GFR/1.73 sq M.predicted among non-blacks MDRD (S/P/Bld) [Vol rate/Area] 53 mL/min/1.73 m2 Low >=59 [facility] Comment on above: Order Comment: Order added by Discern Expert. Result Comment: Purse Framer aubrey kidney disease could be indicated at eGFR's of less than 60 mL/min/1.73m2. Kidney failure is indicated at less than 15 mL/min/1.73m2. Performed By: #### 1 0858498, 5811823, 2221777, 38836539, 8514356 ####[facility] [address] [place] [address] Ferritinon 09-10-2022 Ferritin [Mass/Vol] 302 ng/mL Normal 11-307 [facility] Comment on above: Result Comment: NORM ALS MEN <30 YRS 16-132 ng/mL MEN >30 YRS 8-338 ng/mL WOMEN (PREMEN) 6-104 ng/mL WOMEN (POSTMEN) 12-210 ng/mL Performed By: #### 2 182044, 2965815, 1283386, 5329386, 4452231, 4738981, 2499582, 93568207, 9208174, 3553605, 88731663 ####[facility] [address] [place] [address] Folateon 09-10-2022 Folate [Mass/Vol] 9.6 ng/mL Normal >=6.7 [facility] Comment on above: Performed By: #### 2 929713, 8478740, 4799241, 0663982, 0396624, 7268167, 1815124, 67391124, 5209097, 0899589, 89197203 ####[facility] [address] [place] [address] Vit B12on 09-10-2022 Cobalamin (Vitamin B12) [Mass/Vol] 203 pg/mL Normal 50-1500 [facility] Comment on above: Performed By: #### 2 405853, 0178199, 5986516, 5468028, 0256790, 7061594, 1085249, 52634647, 1421982, 4099499, 11972917 ####[address] [place] [address] CA 27 29on 09-09-2022 Cancer Ag 27-29 Qn 15.2 unit/mL Invalid Interpretation Code 0.0-38.6 [facility] Comment on above: Result Comment: [facility] Immunochemiluminometric Methodology (ICMA)Values obtained with different assay methods or kits cannot be usedinterchangeably. Results cannot be interpreted as absolute evidenceof the presence or absence of malignant disease.Performed at: [place] [id number] [place], [place] [id number] PhD [place] Avelar Performed By: #### 2 588187, 8055196, 0127746, 0958195, 4420342, 5143835, 9716703, 07055594, 4920207, 5909757, 54659118 ####[facility] [address] [place] [address] Auto Diffon 09-08-2022 Basophils/100 WBC (Bld) 0.4 % Normal 0.0-2.0 [facility] Comment on above: Order Comment: Order Added by Discern Expert. Performed By: #### 2 757255, 0911540, 1104952, 5933052, 3908947, 4111246, 0960141, 81852139, 2196089, 6593623, 75979084 ####[address] [place] [address] Basophils/Leukocytes Auto (Bld) [Pure # fraction] 0.0 E9/L Normal 0.0-0.2 [facility] Comment on above: Order Comment: Order Added by Discern Expert. Performed By: #### 2 645803, 0819701, 4267061, 4904945, 9232058, 8180745, 8611689, 49038596, 1532524, 4867348, 50479540 ####[address] [place] [address] Eosinophils/100 WBC (Bld) 1.4 % Normal 0.0-8.0 [facility] Comment on above: Order Comment: Order Added by Discern Expert. Performed By: #### 2 281570, 1723111, 0160277, 0594721, 1905772, 0073933, 6079196, 27094960, 0602232, 9315733, 35588537 ####[address] [address] Eosinophils/Leukocytes Auto (Bld) [Pure # fraction] 0.1 E9/L Normal 0.0-0.5 [facility] Comment on above: Order Comment: Order Added by Discern Expert. Performed By: #### 2 929304, 0263731, 6536611, 9602938, 0915180, 2074603, 5696448, 65299493, 8517111, 8519373, 90566547 ####[address] [place] [address] Lymphocytes/100 WBC (Bld) 15.3 % Normal 14.0-50.0 [facility] Comment on above: Order Comment: Order Added by Discern Expert. Performed By: #### 2 221274, 2404538, 6085630, 2812760, 3101287, 8129573, 5436008, 88510126, 0092978, 4756739, 26571176 ####[address] [place] [address] Lymphocytes/Leukocytes Auto (Bld) [Pure # fraction] 0.8 E9/L Low 1.0-4.0 [facility] Comment on above: Order Comment: Order Added by Discern Expert. Performed By: #### 2 512995, 0634992, 4688229, 3412589, 4892135, 9140733, 7281762, 68292020, 6592315, 3618730, 08088616 ####[facility] [address] [place] [address] Monocytes/100 WBC (Bld) 2.8 % Low 4.0-14.0 [facility] Comment on above: Order Comment: Order Added by Discern Expert. Performed By: #### 2 489948, 3767358, 3689530, 7988204, 7045769, 9449357, 4621919, 33803439, 2879118, 9078067, 32449371 ####[address] [place] [address] Monocytes/Leukocytes Auto (Bld) [Pure # fraction] 0.1 E9/L Low 0.2-1.0 [facility] Comment on above: Order Comment: Order Added by Faviola Expert. Performed By: #### 2 960235, 1185287, 8145918, 4337865, 6474170, 2548596, 9629603, 69546204, 2970771, 2989186, 73840002 ####[facility] [address] [place] [address] Neutrophils/100 WBC (Bld) 80.1 % High 36.0-75.0 [facility] Comment on above: Order Comment: Order Added by Discern Expert. Performed By: #### 2 058543, 5402713, 2349513, 0358969, 9043835, 6763912, 3078685, 54886045, 2161095, 1551276, 37530241 ####[facility] [address] [place] [address] Neutrophils/Leukocytes Auto (Bld) [Pure # fraction] 4.2 E9/L Normal 2.0-7.5 [facility] Comment on above: Order Comment: Order Added by Faviola Expert. Performed By: #### 2 849684, 1797622, 7315401, 2532328, 8045660, 4697314, 3844419, 40982999, 7661864, 4197408, 64018377 ####[facility] [address] [place] [address] CBC w/ Auto Diffon 3 Erythrocyte distribution width (RBC) [Ratio] 15.4 % High 10.9-14.2 [facility] Comment on above: Performed By: #### 2 549102, 7780281, 3196118, 5425627, 2045656, 5225846, 0024187, 61291706, 9632233, 7382902, 22885804 ####[address] [place] [address] Hematocrit (Bld) [Volume fraction] 30.9 % Low 34.0-46.0 [facility] Comment on above: Performed By: #### 2 241753, 5154394, 4533520, 6134755, 9030844, 4565027, 4574327, 59234647, 0511576, 4182491, 37256504 ####[address] [address] Hemoglobin (Bld) [Mass/Vol] 10.3 g/dL Low 12.0-16.0 [facility] Comment on above: Performed By: #### 2 088713, 8139937, 9020207, 0821031, 9202000, 1783011, 2066077, 65225924, 2598030, 5666947, 52939396 ####[facility] [address] [place] [address] MCH (RBC) [Entitic mass] 33.7 pg Normal 27.0-34.0 [facility] Comment on above: Performed By: #### 2 346245, 8108258, 0010799, 3658902, 5731351, 5929657, 0546196, 59791086, 5667595, 7451948, 90813091 ####[place] [place] [address] MCHC (RBC) [Mass/Vol] 33.1 g/dL Normal 31.4-36.[address] [facility] Comment on above: Performed By: #### 2 394664, 4274223, 4661232, 7188931, 9164151, 8568795, 1380518, 68217383, 2781916, 2428823, 50596030 ####[facility] [address] [place] [address] MCV (RBC) [Entitic vol] 101.8 fL High 80.0-100.0 [facility] Comment on above: Performed By: #### 2 197217, 0303420, 9662522, 3383193, 8879807, 3239989, 0780273, 41428533, 0398377, 8349653, 77980839 ####[facility] [address] [place] [address] Platelet mean volume (Bld) [Entitic vol] 7.2 fL Normal 6.4-10.8 [facility] Comment on above: Performed By: #### 2 624218, 5298706, 0514655, 1340800, 7528839, 9183643, 8362983, 60203973, 3806893, 4620572, 45951209 ####[facility] [address] [place] [address] Platelets (Bld) [#/Vol] 307.0 E9/L Normal 150. 0-500. 0 [facility] Comment on above: Performed By: #### 2 680083, 4079825, 5817209, 1854515, 2765346, 7870541, 7628613, 13062088, 1640355, 2302943, 40766779 ####[facility] [address] [place] [address] RBC (Bld) [#/Vol] 3.0 E12/L Low 4.3-5.9 [facility] Comment on above: Performed By: #### 2 455355, 7835579, 2614798, 2432631, 2002196, 6319501, 8502812, 70135009, 0599492, 7174948, 40891529 ####[facility] [address] [place] [address] WBC corrected for nucl RBC Auto (Bld) [#/Vol] 5.3 E9/L Normal 4.0-11.0 [facility] Comment on above: Performed By: #### 2 304486, 9598227, 7162679, 2838566, 9349995, 4188699, 9017340, 04868225, 0271498, 8306270, 03338660 ####[facility] [address] [place] [address] CMPon 09-08-2022 Albumin [Mass/Vol] 3.1 g/dL Low 3.3-5.0 [facility] Comment on above: Performed By: #### 2 577061, 2223550, 7557816, 4286415, 3584722, 3551508, 0203796, 86191571, 6524690, 9673651, 71513974 ####[facility] [address] [place] [address] Albumin/Globulin (S) [Mass conc ratio] 0.8 Low 1.1-2.2 [facility] Comment on above: Performed By: #### 2 801131, 3004367, 8562934, 6622839, 7616124, 6534911, 7600666, 72837203, 0212969, 7179651, 03838224 ####[facility] [address] [place] [address] ALP [Catalytic activity/Vol] 156 Int._Unit/L High 21-98 [facility] Comment on above: Performed By: #### 2 447971, 5077506, 0419145, 9462200, 0929492, 9431843, 4639175, 10803361, 4422448, 0004801, 28718190 ####[facility] [address] [place] [address] ALT No additional P-5'-P [Catalytic activity/Vol] 16 Int._Unit/L Normal 6-46 [facility] Comment on above: Performed By: #### 2 341162, 2505583, 9541263, 5936554, 7778065, 3697982, 6105361, 79898404, 3228237, 7386310, 84875328 ####[facility] [address] [place] [address] Anion gap [Moles/Vol] 11 mmol/L Normal 6-[address] [facility] Comment on above: Performed By: #### 2 887050, 7947300, 0918678, 6728611, 0167869, 4024227, 4466585, 75079771, 2361120, 0480476, 89030978 ####[address] [place] [place] [address] AST [Catalytic activity/Vol] 17 Int._Unit/L Normal 5-43 [facility] Comment on above: Performed By: #### 2 637584, 6629749, 6251355, 4884658, 2293294, 0430311, 5746531, 08980293, 4569396, 7177898, 66349382 ####[facility] [address] [place] [address] Bilirubin [Mass/Vol] 0.8 mg/dL Normal 0.0-1.1 [facility] Comment on above: Performed By: #### 2 655194, 6898572, 5303201, 8811786, 9877840, 2335796, 3327846, 97082865, 4662778, 3838536, 63168043 ####[facility] [address] [place] [address] Calcium [Mass/Vol] 8.7 mg/dL Low 8.9-11.1 [facility] Comment on above: Performed By: #### 2 028503, 9887245, 3192551, 1160934, 1518354, 2081142, 9571176, 09628140, 4895592, 8374866, [id number] ####[facility] [address] [place] [address] Chloride [Moles/Vol] 109 mmol/L Normal 101-111 [facility] Comment on above: Performed By: #### 2 622861, 8969558, 3475608, 9731108, 3573399, 5202105, 0630275, 32384149, 6862560, 4508340, [id number] ####[facility] [address] [place] [address] CO2 [Moles/Vol] 23 mmol/L Normal 21-31 [facility] Comment on above: Performed By: #### 2 144575, 1831250, 7985521, 1119007, 7236375, 5527707, 0483763, 86362759, 8282273, 9066954, 35978023 ####[facility] [address] [place] [address] Creatinine [Mass/Vol] 1.3 mg/dL Normal 0.5-1.[address] [facility] Comment on above: Performed By: #### 2 100148, 1404854, 0257764, 1033173, 2239847, 6865201, 0483930, 72720011, 8939278, 0689695, 31251950 ####[facility] [address] [place] [address] Globulin (S) [Mass/Vol] 4.0 g/dL Normal 1.4-4.0 [facility] Comment on above: Performed By: #### 2 518565, 4821039, 1151845, 5287944, 9899061, 3446500, 1938051, 04325959, 0014180, 1830435, 08084493 ####[facility] [address] [place] [address] Glucose [Mass/Vol] 133 mg/dL Normal 55-199 [facility] Comment on above: Result Comment: If t his glucose result represents a fasting glucose, interpretation should refer to the following reference range: 55-99 mg/dL Performed By: #### 2 019828, 1179411, 7490970, 8513323, 6787144, 9188490, 0051361, 65563277, 1939637, 6758830, 21220577 ####[facility] [address] [place] [address] Potassium [Moles/Vol] 4.2 mmol/L Normal 3.5-5.[address] [facility] Comment on above: Performed By: #### 2 216071, 4114958, 2254535, 0861715, 1061143, 3432109, 0663507, 99998384, 1007175, 7312659, 53445289 ####[facility] [address] [place] [address] Protein [Mass/Vol] 7.1 g/dL Normal 6.0-7.8 [facility] Comment on above: Performed By: #### 2 472581, 7689644, 8570439, 7659963, 7925634, 4262719, 4662629, 44868345, 8394501, 7728311, 48829004 ####[facility] [address] [place] [address] Sodium [Moles/Vol] 139 mmol/L Normal 135-145 [facility] Comment on above: Performed By: #### 2 993330, 5729097, 9632932, 8814305, 1590210, 5398273, 7988895, 97271566, 0727548, 9640635, 21558253 ####[facility] [address] [place] [address] Urea nitrogen [Mass/Vol] 28 mg/dL High 5-21 [facility] Comment on above: Performed By: #### 2 068682, 5666576, 7300763, 7726567, 4777811, 7572368, 9275733, 16762731, 9519929, 9795131, 99983138 ####[facility] [address] [place] [address] Urea nitrogen/Creatinine [Mass ratio] 22 No Units High 10-20 [facility] Comment on above: Performed By: #### 2 811569, 6989531, 6967869, 5869880, 4790549, 8971945, 2061389, 64422418, 5031735, 7758053, 42825733 ####[facility] [address] [place] [address] Consent for Treatmenton 08-21 Consent for Treatment [id number]#[id number]:12 7 Normal [facility] Consent for Treatment [id number]#1.00CD:12 7 Normal [facility] Discharge Instructionson Discharge Instructions [id number]#1.00CD:1 27 Normal [facility] ED Clinical Summaryon 2022 ED Clinical Summary Normal [facility] ED Note-Physicianon 09-09-19 ED Note-Physician Normal [facility] Comment on above: Result Comment: Elec tronically Signed By: Mendez Lucero PA-C\.br\Date and Time Signed: 09/08/22 16:09 EDT\.br\Electronically Co-Signed By: Pedro Nava DO\.br\Date and Time Co-Signed: 09/08/22 16:54 EDT ED Patient Education Noteon 09-08-2022 ED Patient Education Note Normal [facility] ED Patient Summaryon 023 ED Patient Summary Normal [facility] Ironon 09-08-2022 Iron [Mass/Vol] 48 microgram/dL Normal 35-153 [facility] Comment on above: Performed By: #### 2 012788, 8817529, 4159277, 5149963, 3564472, 2965409, 3938559, 12245829, 3054094, 3809571, 83115173 ####[facility] [address] [place] [address] Iron Saturationon 09-08-2022 Iron binding capacity [Mass/Vol] 239 microgram/dL Low 250-400 [facility] Comment on above: Performed By: #### 2 663511, 5157469, 7403447, 6211626, 9317639, 8942753, 0401242, 02383906, 4731687, 2547302, 53991630 ####[facility] [address] [place] [address] Iron saturation [Mass fraction] 20 % Normal 20-50 [facility] Comment on above: Performed By: #### 2 721795, 5597187, 7521446, 5565170, 2853603, 0255282, 3612320, 17928691, 9430486, 5046615, 89749587 ####[facility] [address] [place] [address] Transferrinon 09-08-2022 Transferrin [Mass/Vol] 170 mg/dL Low 200-370 [facility] Comment on above: Performed By: #### 2 275966, 0570394, 7974557, 3624068, 0859462, 2970420, 0569619, 00013747, 3720982, 9854196, 66824821 ####[facility] [address] [place] [address] eGFRon 09-08-2022 GFR/1.73 sq M.predicted among non-blacks MDRD (S/P/Bld) [Vol rate/Area] 43 mL/min/1.73 m2 Low >=59 [facility] Comment on above: Order Comment: Order added by Discern Expert. Result Comment: Purse Framer aubrey kidney disease could be indicated at eGFR's of less than 60 mL/min/1.73m2. Kidney failure is indicated at less than 15 mL/min/1.73m2. Performed By: #### 2 858992, 4161385, 1784706, 0201945, 7407328, 5537877, 6607023, 23208936, 4004374, 7682239, 69867667 ####[facility] [address] [place] [address] Coding Summary.on 08-04-2022 Coding Summary. Normal [facility] Coding Summary.on 08-02-2022 Coding Summary. Normal [facility] CA 27 29on 08-01-2022 Cancer Ag 27-29 Qn 13.4 unit/mL Invalid Interpretation Code 0.0-38.6 [facility] Comment on above: Result Comment: [facility] Immunochemiluminometric Methodology (ICMA)Values obtained with different assay methods or kits cannot be usedinterchangeably. Results cannot be interpreted as absolute evidenceof the presence or absence of malignant disease.Performed at: [facility] [place], [place] [id number] PhD [place] Avelar Performed By: #### 2 316395, 6883359, 3464288, 54345362, 51275903 ####[facility] [address] [place] [address] Consent for Treatmenton 07-21 Consent for Treatment [id number]#1.00CD:12 7 Normal [facility] Oncology Noteon 08-01-2022 Oncology Note Normal [facility] Comment on above: Result Comment: Elec tronically Signed By: Jane FARMER, Yolande Houston\.br\Date and Time Signed: 08/01/22 15:08 EDT Oncology Progress Noteon Oncology Progress Note Normal [facility] Auto Diffon 07-30-2022 Basophils/100 WBC (Bld) 2.7 % High 0.0-2.0 [facility] Comment on above: Order Comment: Order Added by Discern Expert. Performed By: #### 2 128430, 8589321, 0534579, 86608119, 09710415 ####[facility] [address] [place] [address] Basophils/Leukocytes Auto (Bld) [Pure # fraction] 0.1 E9/L Normal 0.0-0.2 [facility] Comment on above: Order Comment: Order Added by Discern Expert. Performed By: #### 2 431356, 3985875, 9137261, 30477323, 48245115 ####[facility] [address] [place] [address] Eosinophils/100 WBC (Bld) 3.5 % Normal 0.0-8.0 [facility] Comment on above: Order Comment: Order Added by Discern Expert. Performed By: #### 2 692812, 6638153, 6538206, 25110934, 74817017 ####[place] [place] [address] Eosinophils/Leukocytes Auto (Bld) [Pure # fraction] 0.1 E9/L Normal 0.0-0.5 [facility] Comment on above: Order Comment: Order Added by Faviola Expert. Performed By: #### 2 799079, 1668032, 5673644, 00907877, 96005423 ####[place] [address] [place] [address] Lymphocytes/100 WBC (Bld) 22.7 % Normal 14.0-50.0 [facility] Comment on above: Order Comment: Order Added by Faviola Expert. Performed By: #### 2 144679, 7824398, 2589784, 29872736, 59662871 ####[address] [address] Lymphocytes/Leukocytes Auto (Bld) [Pure # fraction] 0.8 E9/L Low 1.0-4.0 [facility] Comment on above: Order Comment: Order Added by Faviola Expert. Performed By: #### 2 880934, 2788582, 2575590, 28188993, 47052235 ####[address] [address] Monocytes/100 WBC (Bld) 3.2 % Low 4.0-14.0 [facility] Comment on above: Order Comment: Order Added by Faviola Expert. Performed By: #### 2 575692, 5882545, 5780718, 45317313, 88556742 ####[address] [address] Monocytes/Leukocytes Auto (Bld) [Pure # fraction] 0.1 E9/L Low 0.2-1.0 [facility] Comment on above: Order Comment: Order Added by Faviola Expert. Performed By: #### 2 025678, 1693666, 5336793, 78444842, 57463494 ####[place] [address] [place] [address] Neutrophils/100 WBC (Bld) 67.9 % Normal 36.0-75.0 [facility] Comment on above: Order Comment: Order Added by Discern Expert. Performed By: #### 2 675001, 5938305, 3123829, 02491797, 61084723 ####[place] [place] [address] Neutrophils/Leukocytes Auto (Bld) [Pure # fraction] 2.5 E9/L Normal 2.0-7.5 [facility] Comment on above: Order Comment: Order Added by Discern Expert. Performed By: #### 2 509394, 9669500, 3591457, 53347434, 64175560 ####[address] [address] CBC w/ Auto Diffon Erythrocyte distribution width (RBC) [Ratio] 15.9 % High 10.9-14.2 [facility] Comment on above: Performed By: #### 2 290214, 3253163, 2377352, 53061183, 67044722 ####[address] [address] Hematocrit (Bld) [Volume fraction] 32.4 % Low 34.0-46.0 [facility] Comment on above: Performed By: #### 2 421291, 5634914, 9555708, 13342925, 22369741 ####[address] [address] Hemoglobin (Bld) [Mass/Vol] 10.5 g/dL Low 12.0-16.0 [facility] Comment on above: Performed By: #### 2 149025, 5031241, 3382696, 50607427, 79004326 ####[address] [place] [address] MCH (RBC) [Entitic mass] 33.6 pg Normal 27.0-34.0 [facility] Comment on above: Performed By: #### 2 506154, 2360734, 8877460, 64615916, 60581266 ####[facility] [address] [place] [address] MCHC (RBC) [Mass/Vol] 32.5 g/dL Normal 31.4-36.[address] [facility] Comment on above: Performed By: #### 2 404228, 0051409, 0879672, 24766424, 53634741 ####[place] [address] MCV (RBC) [Entitic vol] 103.2 fL High 80.0-100.0 [facility] Comment on above: Performed By: #### 2 306257, 4381246, 6926522, 36168446, 33843473 ####[address] [address] Platelet mean volume (Bld) [Entitic vol] 7.4 fL Normal 6.4-10.8 [facility] Comment on above: Performed By: #### 2 414990, 1097165, 5435925, 51654591, 92631089 ####[place] [address] Platelets (Bld) [#/Vol] 142.0 E9/L Low 150. 0-500. 0 [facility] Comment on above: Performed By: #### 2 696913, 1737300, 4893212, 92061698, 81348709 ####[facility] [address] [place] [address] RBC (Bld) [#/Vol] 3.1 E12/L Low 4.3-5.9 [facility] Comment on above: Performed By: #### 2 298321, 6589518, 9813808, 17155983, 20094869 ####[address] [address] WBC corrected for nucl RBC Auto (Bld) [#/Vol] 3.7 E9/L Low 4.0-11.0 [facility] Comment on above: Performed By: #### 2 186839, 8550233, 0115640, 23855530, 85923556 ####[facility] [address] [place] [address] CHEMISTRYOrdered By: SYSTEM SYSTEM on 07-30-2022 Albumin [...] - 4.0 gm/dL [facility] Glucose [Mass/Vol] 147 mg/dL Normal 55 - 199 mg/dL [facility] Potassium [Moles/Vol] 4.0 mmol/L Normal 3.5 - 5.3 mmol/L [facility] Protein [Mass/Vol] 6.5 g/dL Normal 6.0 - 7.8 gm/dL [facility] Sodium [Moles/Vol] 136 mmol/L Normal 135 - 145 mmol/L [facility]isol Urea nitrogen [Mass/Vol] 33 mg/dL High 5 - 21 mg/dL [facility] Remisol Urea nitrogen/Creatinine [Mass ratio] 25 mg/mg High 10 - 20 [facility] Remisol CMPon 07-30-2022 Albumin [Mass/Vol] 3.3 g/dL Normal 3.3-5.0 [facility] Comment on above: Performed By: #### 2 811932, 2079631, 8245504, 38407030, 88404460 ####[facility] [address] [place] [address] Albumin/Globulin (S) [Mass conc ratio] 1.0 Low 1.1-2.2 [facility] Comment on above: Performed By: #### 2 644294, 6766338, 2751700, 22254968, 41130437 ####[facility] [address] [place] [address] ALP [Catalytic activity/Vol] 121 Int._Unit/L High 21-98 [facility] Comment on above: Performed By: #### 2 375565, 5878621, 2519683, 71397117, 11881298 ####[facility] [address] [place] [address] ALT No additional P-5'-P [Catalytic activity/Vol] 15 Int._Unit/L Normal 6-46 [facility] Comment on above: Performed By: #### 2 904667, 6249680, 8294791, 65830570, 82666549 ####[facility] [address] [place] [address] Anion gap [Moles/Vol] 11 mmol/L Normal 6-16 [facility] Comment on above: Performed By: #### 2 506680, 6081634, 3975480, 20099421, 10036765 ####[facility] [address] [place] [address] AST [Catalytic activity/Vol] 15 Int._Unit/L Normal 5-43 [facility] Comment on above: Performed By: #### 2 313907, 3152855, 1174806, 82488475, 57404321 ####[facility] [address] [place] [address] Bilirubin [Mass/Vol] 0.9 mg/dL Normal 0.0-1.1 [facility] Comment on above: Performed By: #### 2 807272, 1089589, 1434171, 87028867, 73835646 ####[facility] [address] [place] [address] Calcium [Mass/Vol] 8.5 mg/dL Low 8.9-11.1 [facility] Comment on above: Performed By: #### 2 050197, 2578249, 7658062, 48265197, 10077209 ####[facility] [address] [place] [address] Chloride [Moles/Vol] 107 mmol/L Normal 101-111 [facility] Comment on above: Performed By: #### 2 358092, 9364435, 8376459, 37372702, 81427674 ####[facility] [address] [place] [address] CO2 [Moles/Vol] 22 mmol/L Normal 21-31 [facility] Comment on above: Performed By: #### 2 470529, 2127965, 0282784, 69805482, 31347206 ####[facility] [address] [place] [address] Creatinine [Mass/Vol] 1.3 mg/dL Normal 0.5-1.[address] [facility] Comment on above: Performed By: #### 2 731931, 6834265, 3155016, 39434917, 48416054 ####[facility] [address] [place] [address] Globulin (S) [Mass/Vol] 3.2 g/dL Normal 1.4-4.0 [facility] Comment on above: Performed By: #### 2 607446, 0943225, 5436401, 23252350, 18018298 ####[facility] [address] [place] [address] Glucose [Mass/Vol] 147 mg/dL Normal 55-199 [facility] Comment on above: Result Comment: If t his glucose result represents a fasting glucose, interpretation should refer to the following reference range: 55-99 mg/dL Performed By: #### 2 287693, 3486833, 5201385, 52624910, 93412661 ####[facility] [address] [place] [address] Potassium [Moles/Vol] 4.0 mmol/L Normal 3.5-5.[address] [facility] Comment on above: Performed By: #### 2 735710, 3957773, 9777992, 40404026, 82341378 ####[facility] [address] [place] [address] Protein [Mass/Vol] 6.5 g/dL Normal 6.0-7.8 [facility] Comment on above: Performed By: #### 2 419254, 9978428, 2149021, 99311910, 46665338 ####[facility] [address] [place] [address] Sodium [Moles/Vol] 136 mmol/L Normal 135-145 [facility] Comment on above: Performed By: #### 2 020745, 0432286, 2507232, 68464185, 16716302 ####[facility] [address] [place] [address] Urea nitrogen [Mass/Vol] 33 mg/dL High 5-21 [facility] Comment on above: Performed By: #### 2 957929, 4068781, 5907968, 78579062, 29228050 ####[facility] [address] [place] [address] Urea nitrogen/Creatinine [Mass ratio] 25 No Units High 10-20 [facility] Comment on above: Performed By: #### 2 520434, 3066893, 7731241, 04910475, 35525198 ####[facility] [address] [place] [address] Consent for Treatmenton 07-21 Consent for Treatment [id number]#[id number]:12 7 Normal [facility] HEMATOLOGYOrdered By: SYSTEM SYSTEM on 07-30-2022 Basophils/100 [...] [Vol rate/Area] 49 mL/min/1.73 m2 Low >=59 [facility] Comment on above: Order Comment: Order added by Discern Expert. Result Comment: eGFR is race adjusted. AA=. Performed By: #### 2 562380, 4288374, 2347183, 62948529, 85134296 ####[facility] [address] [place] [address] GFR/1.73 sq M.predicted among non-blacks MDRD (S/P/Bld) [Vol rate/Area] 40 mL/min/1.73 m2 Low >=59 [facility] Comment on above: Order Comment: Order added by Discern Expert. Result Comment: Purse Framer aubrey kidney disease could be indicated at eGFR's of less than 60 mL/min/1.73m2. Kidney failure is indicated at less than 15 mL/min/1.73m2. Performed By: #### 2 715730, 7963960, 3131311, 51436295, 24019189 ####[facility] [address] [place] [address] Coding Summary.on 07-27-2022 Coding Summary. Normal [facility] NM PET w/ CT Scan Skull Base to Midthighon 07-26-2022 NM PET w/ CT Scan Skull Base to Midthigh Normal [facility] RAD - MISCon 07-26-2022 RAD - MISC [id number]#1.00CD:1 27 Normal [facility] Consent for Treatmenton Consent for Treatment [id number]#1.00CD:12 7 Normal [facility] Physician Orderon 07-25-2022 Physician Order [id number]#1.00CD:12 7 Normal [facility] Coding Summary.on 07-13-2022 Coding Summary. Normal [facility] CA 27 29on 07-10-2022 Cancer Ag 27-29 Qn 14.4 unit/mL Invalid Interpretation Code 0.0-38.6 [facility] Comment on above: Result Comment: [facility] Immunochemiluminometric Methodology (ICMA)Values obtained with different assay methods or kits cannot be usedinterchangeably. Results cannot be interpreted as absolute evidenceof the presence or absence of malignant disease.Performed at: [facility] [id number] [place], [place] [id number] PhD [place] Avelar Performed By: #### 1 5098021, 9501774, 0398448, 47582673, 7949981 ####[facility] [address] [place] [address] Auto Diffon 07-09-2022 Basophils/100 WBC (Bld) 2.7 % High 0.0-2.0 [facility] Comment on above: Order Comment: Order Added by Discern Expert. Performed By: #### 1 0922710, 3168314, 9351040, 59252789, 4512423 ####[facility] [address] [place] [address] Basophils/Leukocytes Auto (Bld) [Pure # fraction] 0.1 E9/L Normal 0.0-0.2 [facility] Comment on above: Order Comment: Order Added by Discern Expert. Performed By: #### 1 0320906, 4605057, 4399337, 40333626, 5341613 ####[place] [place] [address] Eosinophils/100 WBC (Bld) 1.9 % Normal 0.0-8.0 [facility] Comment on above: Order Comment: Order Added by Faviola Expert. Performed By: #### 1 8306981, 7850758, 6012103, 27354886, 1821260 ####[address] [address] Eosinophils/Leukocytes Auto (Bld) [Pure # fraction] 0.1 E9/L Normal 0.0-0.5 [facility] Comment on above: Order Comment: Order Added by Faviola Expert. Performed By: #### 1 2650675, 1430397, 6083369, 42445019, 1074624 ####[address] [place] [address] Lymphocytes/100 WBC (Bld) 31.4 % Normal 14.0-50.0 [facility] Comment on above: Order Comment: Order Added by Discern Expert. Performed By: #### 1 7165402, 8612901, 7766399, 04370766, 6777506 ####[address] [place] [address] Lymphocytes/Leukocytes Auto (Bld) [Pure # fraction] 1.3 E9/L Normal 1.0-4.0 [facility] Comment on above: Order Comment: Order Added by Faviola Expert. Performed By: #### 1 1398107, 4706737, 1608490, 44325807, 5485836 ####[address] [place] [address] Monocytes/100 WBC (Bld) 5.5 % Normal 4.0-14.0 [facility] Comment on above: Order Comment: Order Added by Discern Expert. Performed By: #### 1 5464213, 6154816, 5598294, 73920321, 0032247 ####[address] [place] [address] Monocytes/Leukocytes Auto (Bld) [Pure # fraction] 0.2 E9/L Normal 0.2-1.0 [facility] Comment on above: Order Comment: Order Added by Discern Expert. Performed By: #### 1 9653407, 9616647, 8410455, 42871880, 9033736 ####[address] [address] Neutrophils/100 WBC (Bld) 58.5 % Normal 36.0-75.0 [facility] Comment on above: Order Comment: Order Added by Discern Expert. Performed By: #### 1 7751640, 3753625, 3266104, 01864422, 7182424 ####[address] [address] Neutrophils/Leukocytes Auto (Bld) [Pure # fraction] 2.5 E9/L Normal 2.0-7.5 [facility] Comment on above: Order Comment: Order Added by Discern Expert. Performed By: #### 1 4161120, 5785873, 8397974, 18527835, 9573302 ####[place] [place] [address] CBC w/ Auto Diffon 3 Erythrocyte distribution width (RBC) [Ratio] 17.1 % High 10.9-14.2 [facility] Comment on above: Performed By: #### 1 2819650, 1284450, 1656497, 55067602, 8991120 ####[address] [place] [address] Hematocrit (Bld) [Volume fraction] 36.3 % Normal 34.0-46.0 [facility] Comment on above: Performed By: #### 1 8843013, 9627181, 4287243, 52332853, 8979444 ####[facility] [address] [place] [address] Hemoglobin (Bld) [Mass/Vol] 11.9 g/dL Low 12.0-16.0 [facility] Comment on above: Performed By: #### 1 1007224, 8499673, 9323097, 00255732, 3711971 ####[place] [address] [place] [address]57 MCH (RBC) [Entitic mass] 33.4 pg Normal 27.0-34.0 [facility] Comment on above: Performed By: #### 1 5910940, 3806588, 3627930, 55723526, 5455204 ####[place] [address] MCHC (RBC) [Mass/Vol] 32.9 g/dL Normal 31.4-36.[address] [facility] Comment on above: Performed By: #### 1 7497239, 9407645, 2519507, 43597342, 1499747 ####[place] [place] [address] MCV (RBC) [Entitic vol] 101.5 fL High 80.0-100.0 [facility] Comment on above: Performed By: #### 1 2059071, 0804340, 2868353, 92315448, 0994517 ####[place] [place] [address] Platelet mean volume (Bld) [Entitic vol] 7.3 fL Normal 6.4-10.8 [facility] Comment on above: Performed By: #### 1 3424498, 3455358, 1757361, 08656839, 7284701 ####[address] [place] [address] Platelets (Bld) [#/Vol] 205.0 E9/L Normal 150. 0-500. 0 [facility] Comment on above: Performed By: #### 1 4890992, 7184274, 0136315, 09033147, 9466264 ####[facility] [address] [place] [address] RBC (Bld) [#/Vol] 3.6 E12/L Low 4.3-5.9 [facility] Comment on above: Performed By: #### 1 8557654, 7318080, 1838394, 06272302, 8762548 ####[facility] [address] [place] [address] WBC corrected for nucl RBC Auto (Bld) [#/Vol] 4.2 E9/L Normal 4.0-11.0 [facility] Comment on above: Performed By: #### 1 3641149, 1163918, 8053800, 29925172, 3134233 ####[facility] [address] [place] [address] CHEMISTRYOrdered By: SYSTEM SYSTEM on 07-09-2022 Albumin [...] 1 11 mmol/L [facility] CO2 [Moles/Vol] 23 mmol/L Normal 21 - 31 mmol/L [facility] Creatinine [Mass/Vol] 1.3 mg/dL Normal 0.5 - 1.3 mg/dL [facility] GFR/1.73 sq M.predicted among blacks MDRD (S/P/Bld) [Vol rate/Area] 49 mL/min/1.73 m2 Low >=59mL/min /1.73 m2 [facility] [place] S GFR/1.73 sq M.predicted among non-blacks MDRD (S/P/Bld) [Vol rate/Area] 40 mL/min/1.73 m2 Low >=59mL/min /1.73 m2 [facility] Chem S Globulin (S) [Mass/Vol] 3.4 g/dL [...] 24 mg/dL High 5 - 21 mg/dL [facility] Remisol Urea nitrogen/Creatinine [Mass ratio] 18 mg/mg Normal 10 - 20 [facility] Remisol CMPon 07-09-2022 Albumin [Mass/Vol] 3.6 g/dL Normal 3.3-5.0 [facility] Comment on above: Performed By: #### 1 3696002, 2526911, 3824750, 18481983, 6386663 ####[facility] [address] [place] [address] Albumin/Globulin (S) [Mass conc ratio] 1.1 Normal 1.1-2.2 [facility] Comment on above: Performed By: #### 1 [id number], [id number], [id number], [id number] ####[facility] [id number] [place] [address] ALP [Catalytic activity/Vol] 87 Int._Unit/L Normal 21-98 [facility] Comment on above: Performed By: #### 1 [id number], [id number], [id number], [id number], [id number] ####[facility] [id number] [place] [address] ALT No additional P-5'-P [Catalytic activity/Vol] 18 Int._Unit/L Normal 6-46 [facility] Comment on above: Performed By: #### 1 [id number], [id number], [id number], [id number], [id number] ####[facility] [id number] [place] [address] Anion gap [Moles/Vol] 11 mmol/L Normal 6-[address] [facility] Comment on above: Performed By: #### 1 [id number], [id number], 6520379, [id number], [id number] ####[facility] [address] [place] [address] AST [Catalytic activity/Vol] 18 Int._Unit/L Normal 5-43 [facility] Comment on above: Performed By: #### 1 [id number], 5556844, 6108376, [id number], [id number] ####[facility] [address] [place] [address] Bilirubin [Mass/Vol] 1.0 mg/dL Normal 0.0-1.1 [facility] Comment on above: Performed By: #### 1 [id number], 1853681, 2955819, [id number], 0131307 ####[facility] [address] [place] [address] Calcium [Mass/Vol] 8.7 mg/dL Low 8.9-11.1 [facility] Comment on above: Performed By: #### 1 [id number], 8060479, 0112214, [id number], 9614613 ####[facility] [address] [place] [address] Chloride [Moles/Vol] 108 mmol/L Normal 101-111 [facility] Comment on above: Performed By: #### 1 [id number], 7855337, 8747119, 71021528, 6547849 ####[facility] [address] [place] [address] CO2 [Moles/Vol] 23 mmol/L Normal 21-31 [facility] Comment on above: Performed By: #### 1 1406598, 3720669, 9670926, 78973012, 9377868 ####[facility] [address] [place] [address] Creatinine [Mass/Vol] 1.3 mg/dL Normal 0.5-1.[address] [facility] Comment on above: Performed By: #### 1 [id number], 0892626, 2115273, 38117727, 6119686 ####[facility] [address] [place] [address] Globulin (S) [Mass/Vol] 3.4 g/dL Normal 1.4-4.0 [facility] Comment on above: Performed By: #### 1 [id number], 6956533, 5017066, 20452297, 0709569 ####[facility] [address] [place] [address] Glucose [Mass/Vol] 119 mg/dL Normal 55-199 [facility] Comment on above: Result Comment: If t his glucose result represents a fasting glucose, interpretation should refer to the following reference range: 55-99 mg/dL Performed By: #### 1 [id number], 8354293, 3304420, 88749684, 3158200 ####[facility] [address] [place] [address] Potassium [Moles/Vol] 4.1 mmol/L Normal 3.5-5.[address] [facility] Comment on above: Performed By: #### 1 [id number], 8250211, 5330537, 70024778, 7856597 ####[facility] [address] [place] [address] Protein [Mass/Vol] 7.0 g/dL Normal 6.0-7.8 [facility] Comment on above: Performed By: #### 1 7904880, 3832649, 7148213, 41982964, 1340014 ####[facility] [address] [place] [address] Sodium [Moles/Vol] 138 mmol/L Normal 135-145 [facility] Comment on above: Performed By: #### 1 8413757, 3638743, 5210326, 18866747, 3134062 ####[facility] [address] [place] [address] Urea nitrogen [Mass/Vol] 24 mg/dL High - [facility] Comment on above: Performed By: #### 1 1488118, 9170980, 2310488, 91485124, 5455017 ####[facility] [address] [place] [address] Urea nitrogen/Creatinine [Mass ratio] 18 No Units Normal - [facility] Comment on above: Performed By: #### 1 2626270, 8908701, 8291934, 94351679, 6306982 ####[facility] [address] [place] [address] Consent for Treatmenton 06-21 Consent for Treatment [id number]:12 7 Normal [facility] HEMATOLOGYOrdered By: SYSTEM SYSTEM on 07-09-2022 Basophils/100 [...] 7.5 E9/L [facility] HEMATOLOGYOrdered By: Dianne Vilal on 07-09-2022 Erythrocyte distribution width (RBC) [Ratio] [...] [Vol rate/Area] 49 mL/min/1.73 m2 Low >=59 [facility] Comment on above: Order Comment: Order added by Discern Expert. Result Comment: eGFR is race adjusted. AA=. Performed By: #### 1 [id number], 5132636, 0797146, 47377427, 1695864 ####[facility] [address] [place] [address] GFR/1.73 sq M.predicted among non-blacks MDRD (S/P/Bld) [Vol rate/Area] 40 mL/min/1.73 m2 Low >=59 [facility] Comment on above: Order Comment: Order added by Discern Expert. Result Comment: Purse Framer aubrey kidney disease could be indicated at eGFR's of less than 60 mL/min/1.73m2. Kidney failure is indicated at less than 15 mL/min/1.73m2. Performed By: #### 1 [id number], 5439596, 6272611, 03123743, 0249349 ####[facility] [address] [place] [address] ONC - Otheron 06-28-2022 ONC - Other [id number]:1 27 Normal [facility] CHEMISTRYOrdered By: SYSTEM SYSTEM on 06-05-2022 Albumin [Mass/Vol] 3.6 g/dL Normal 3.3 - 5.0 gm/dL [facility] Remisol Albumin/Globulin [Mass ratio] 1.2 {ratio} Normal 1.1 - 2.2 [facility] ALP [Catalytic activity/Vol] 79 [iU]/d Normal [...] 54 mL/min/1.73 m2 Low >=59mL/min /1.73 m2 [facility] S GFR/1.73 sq M.predicted among non-blacks MDRD (S/P/Bld) [Vol rate/Area] 44 mL/min/1.73 m2 Low >=59mL/min /1.73 m2 [facility] S Globulin (S) [Mass/Vol] 3.1 g/dL [...] SendOutsSS Comment on above: Result Comment: Siem Xencoraur Immunochemiluminometric Methodology (ICMA) Values obtained with different assay methods or kits cannot be used interchangeably. Results cannot be interpreted as absolute evidence of the presence or absence of malignant disease. Performed at: [facility] [id number] PhD [place] [facility] CHEMISTRYOrdered By: SYSTEM SYSTEM [...] - 7.5 E9/L [facility] HEMATOLOGYOrdered By: Jamie Londono on 05-07-2022 Erythrocyte distribution width (RBC) [...] 49 mL/min/1.73 m2 Low >=59mL/min /1.73 m2 [facility] S GFR/1.73 sq M.predicted among non-blacks MDRD (S/P/Bld) [Vol rate/Area] 40 mL/min/1.73 m2 Low >=59mL/min /1.73 m2 [facility] S Globulin (S) [Mass/Vol] 2.9 g/dL Normal 1.4 - 4.0 gm/dL [facility] Glucose [Mass/Vol] 129 mg/dL Normal 55 - 199 mg/dL [facility] Potassium [Moles/Vol] 4.2 mmol/L Normal 3.5 - 5.3 mmol/L [facility] Protein [Mass/Vol] 6.4 g/dL Normal 6.0 - 7.8 gm/dL [facility] Sodium [Moles/Vol] 137 mmol/L Normal 135 - 145 mmol/L [facility] Urea nitrogen [Mass/Vol] 23 mg/dL High 5 - 21 mg/dL [facility] Urea nitrogen/Creatinine [Mass ratio] 18 mg/mg [...] 32 mL/min/1.73 m2 Low >=59mL/min /1.73 m2 [facility] S Globulin (S) [Mass/Vol] 3.5 g/dL [...] 41 mL/min/1.73 m2 Low >=59mL/min /1.73 m2 [facility] S GFR/1.73 sq M.predicted among non-blacks MDRD (S/P/Bld) [Vol rate/Area] 34 mL/min/1.73 m2 Low >=59mL/min /1.73 m2 [facility] S Globulin (S) [Mass/Vol] 3.2 g/dL [...] mg/dL [facility] Rem[facility] Urea nitrogen/Creatinine [Mass ratio] 17 mg/mg [...] 37 mL/min/1.73 m2 Low >=59mL/min /1.73 m2 [facility] S Globulin (S) [Mass/Vol] 3.5 g/dL [...] 7.8 fL Normal 6.4 - 10.8 fL [facility] Platelets (Bld) [#/Vol] 317.0 E9/L Normal 150. 0 - 500.0 E9/L [facility] Comment on above: Result Comment: Plat elet count verified using smear estimate. RS 10/02/2021 15:55:05 EDT RBC (Bld) [#/Vol] 4.2 E12/L Low 4.3 - 5.9 E12/L [facility] WBC corrected for nucl RBC Auto (Bld) [#/Vol] 4.0 E9/L Normal 4.0 - 11.0 E9/L [facility] Clinic Note - Heme Onc Sched [...] Documentation: Clinic Location/Phone Number: Clinic Location/Phone Number: [facility] End Of Visit MU Report Item: Visit Summary given or mailed to patientyes Mailed to patient Electronic Signatures: Isa Wong (SEC) (Signed 28-Aug-2021 16:01) Authored: Retrieve Patient Instructions, End of Visit Documentation Last Updated: 28-Aug-2021 16:01 by Isa Wong (SEC) Normal [facility] Clinic Note - Heme Onc-New Evaristo king 08-28-2021 Clinic Note - Heme Onc-New Visit Patient Visit Information: Visit Type: New Visit Cancer History: Breast AJCC Edition: 8th (AJCC), Diagnosis Date: August 2021, Stage(no match), pM1 G2 History of Present Illness: ID Statement: null is a () day old null Interval History: BREAST CANCER DIAGNOSIS metastatic ER+/IA+/HER2- breast cancer ([id number]) CONSULTING ONCOLOGIST Dr David Caldera CURRENT THERAPY anastrozole/ribociclib x 3 weeks HPI Patient is a pleasant 71 y/o woman here for a 2nd opinion. She presented on 06/29/21 with a 4.2cm mass in the right breast which she had for >1 year. Biopsy revealed ER/IA >95%/HER2- breast cancer. Also has known h/p [...] corresponding to (more content not included)... Normal [facility] Clinic Note - Intakeon 08-28 Clinic [...] (kg/m2)39 kg/M2 BSA (m2)2.08 M2 Nursing Verification [id number] Nursing Verification Height in cm159 centimeter(s) SpO2 (%)98 % SpO2 Patient Onroom air Pain Screening: Patient States Painno (0) Technical Administrative Assistant for intimate exam offered to patient: Patient [...] you are livingno Depression: Past 2 wks: [place] down, depressed or hopelessno Past 2 wks: [place] little interest/pleasure doing thingsno Any Thoughts of [...] 13:21) Authored: Patient Visit Information, Vital Signs, Technical Administrative Assistant, Allergies, Outpatient Medication Profile, Notification, Travel History, Falls, Spiritual/Procedural, Adv Dir, Violence, Depression, Substance, Nutrition/Learning Lisette Valle (DARIAN) (Signed 28-Aug-2021 15:47) Authored: Vital Signs, Notification Co-Signer: Patient Visit Information, Vital Signs, Technical Administrative Assistant, Allergies, Outpatient Medication Profile, Notification, Travel History, Falls, Spiritual/Procedural, Adv Dir, Violence, Depression, Substance, Nutrition/Learning Last Updated: 28-Aug-2021 15:47 by Lisette Valle) [facility] Narrative Note - Outpatient- Community Health Workeron 08-25-2021 Narrative Note - Outpatient-Community Health Worker Narrative Note: CHW: DisciplineCommunity Health Worker Best way to contact patient#[phone] Orestesemmanuelo Has patient been seen by a provider [...] spelled wrong and that it should list [place] not [place]. Electronic Signatures: Leroy Gallegos (COOR) (Signed 25-Aug-2021 11:50) Authored: CHW Last Updated: 25-Aug-2021 11:50 by Leroy Gallegos (COOR) Normal [facility] CHEMISTRYOrdered By: SYSTEM SYSTEM on 08-21-2021 [...] 54 mL/min/1.73 m2 Low >=59mL/min /1.73 m2 [facility] S Globulin (S) [Mass/Vol] 3.1 g/dL Normal 1.4 - 4.0 gm/dL [facility] Glucose [Mass/Vol] 132 mg/dL Normal 55 - 199 mg/dL FT [...] explained role within the multidisciplinary team at [facility]; reviewed upcoming appointment with Dr. [...] 16-Aug-2021 11:34 by Aliya Dobson (DELGADO) Normal [facility] CHEMISTRYOrdered By: SYSTEM SYSTEM on 08-07-2021 Albumin [Mass/Vol] 3.6 g/dL Normal 3.3 - 5.0 gm/dL [facility] Remisol Albumin/Globulin [Mass ratio] 1.1 {ratio} Normal 1.1 - 2.2 [facility] ALP [Catalytic activity/Vol] 74 [iU]/d Normal 21 - 98 Int._Unit/ L [facility] ALT No additional P-5'-P [Catalytic activity/Vol] 19 [iU]/d Normal 6 - 46 Int._Unit/ L [facility] Anion gap [Moles/Vol] 12 mmol/L Normal [...] 59 mL/min/1.73 m2 Normal >=59mL/min /1.73 m2 [facility] S GFR/1.73 sq M.predicted among non-blacks MDRD (S/P/Bld) [Vol rate/Area] 49 mL/min/1.73 m2 Low >=59mL/min /1.73 m2 [facility] S Globulin (S) [Mass/Vol] 3.4 g/dL [...] 1.4 % Normal 0.0 - 2.0 % [facility]eAuto[facility] Basophils/Leukocytes [...] E9/L Normal 150. 0 - 500.0 E9/L [facility] RBC (Bld) [#/Vol] 4.9 E12/L Normal 4.3 - 5.9 E12/L [facility] WBC corrected for nucl RBC Auto (Bld) [#/Vol] 6.1 E9/L Normal 4.0 - 11.0 E9/L [facility] Vital Signs Date Time Vital Sign Value Performing Clinician Facility 08-30-2023 08:10-0400 Body height 160.02 cm MD Mary Rodriguez Work Phone: [facility] 08-30-2023 08:10-0400 Body weight 81.64 kg MD Mary Rodriguez Work Phone: [facility] 06-12-2023 10:55-0500 Body temperature 98.06 [degF] [facility] 06-12-2023 10:55-0500 Diastolic blood pressure 66 mm[Hg] [facility] 06-12-2023 10:55-0500 Heart rate 68 /min [facility] 06-12-2023 10:55-0500 Mean blood pressure 79 mm[Hg] [facility] 06-12-2023 10:55-0500 Respiratory rate 16 /min [facility] 06-12-2023 10:55-0500 SaO2% (BldA) [Mass fraction] 97 % [facility] 06-12-2023 10:55-0500 Systolic blood pressure 106 mm[Hg] [facility] 05-31-2023 08:36-0500 Body height 160.02 cm MD Mary Rodriguez Work Phone: [facility] 05-31-2023 08:36-0500 Body weight 86.18 kg MD Mary Rodriguez Work Phone: [facility] 05-01-2023 14:03-0500 Heart rate 70 /min [facility] 05-01-2023 14:03-0500 SaO2% (BldA) [Mass fraction] 98 % [facility] 05-01-2023 14:02-0500 Body temperature 98.24 [degF] [facility]-01-[facility]23 14:02-0500 Diastolic blood pressure 81 mm[Hg] [facility] 05-01-2023 14:02-0500 Mean blood pressure 93 mm[Hg] [facility] 05-01-2023 14:02-0500 Systolic blood pressure 118 mm[Hg] [facility] 01-30-2023 14:25-0400 Heart rate 76 /min [facility] 01-30-2023 14:25-0400 SaO2% (BldA) [Mass fraction] 96 % [facility] 01-30-2023 14:25-0400 Diastolic blood pressure 61 mm[Hg] [facility] 01-30-2023 14:25-0400 Mean blood pressure 79 mm[Hg] [facility] 01-30-2023 14:25-0400 Systolic blood pressure 115 mm[Hg] [facility] 01-30-2023 14:25-0400 Body temperature 97.7 [degF] [facility] 01-30-2023 14:00-0400 Blood Pressure Location [facility] 01-30-2023 14:00-0400 Respiratory rate 16 /min [facility] 12-23-2022 10:15-0400 Hourly Rounding Mbanefo OMARCELLOWU [facility] 12-23-2022 10:15-0400 Promise to Return Mbanefo OJUKWU [facility] 12-23-2022 09:00-0400 Hourly Rounding Mbanefo OJUKWU [facility] 12-23-2022 09:00-0400 Promise to Return Mbanefo OJUKWU [facility] 12-23-2022 08:46-0400 Diastolic blood pressure 64 mm[Hg] Mbanefo OJUKWU [facility] 12-23-2022 08:46-0400 Systolic blood pressure 96 mm[Hg] Mbanefo OJUKWU [facility] 12-23-2022 08:40-0400 gluc 111 mg/dL Mbanefo OJUKWU [facility] 12-23-2022 08:37-0400 Heart rate 56 /min Mbanefo OJUKWU [facility] 12-23-2022 08:37-0400 SaO2% (BldA) [Mass fraction] 96 % Mbanefo OJUKWU [facility] 12-23-2022 08:37-0400 Respiratory rate 18 /min [facility]banefo OJUKWU [facility] 12-23-2022 08:37-0400 Body temperature 97.88 [degF] Mbanefo OJUKWU [facility] 12-23-2022 08:37-0400 Diastolic blood pressure 64 mm[Hg] Mbanefo [facility]JUKW[facility] 12-23-2022 08:37-0400 Mean blood pressure 74 mm[Hg] Mbanefo OJUKWU [facility] 12-23-2022 08:37-0400 Systolic blood pressure 96 mm[Hg] Mbanefo OJUKWU [facility] 12-23-2022 08:00-0400 Hourly Rounding Mbanefo OJUKWU [facility] 12-23-2022 08:00-0400 Promise to Return Mbanefo OJUKWU [facility] 12-22-2022 23:44-0400 Heart rate 58 /min Mbanefo [facility]UKW[facility] 12-22-2022 23:44-0400 SaO2% (BldA) [Mass fraction] 97 % Mbanefo OJUKWU [facility] 12-22-2022 23:44-0400 Body temperature 98.06 [degF] Mbanefo OJUKWU [facility] 12-22-2022 23:44-0400 Diastolic blood pressure 60 mm[Hg] Mbanefo OJUKWU [facility] 12-22-2022 23:44-0400 Mean blood pressure 72 mm[Hg] Mbanefo OJUKWU [facility] 12-22-2022 23:44-0400 Systolic blood pressure 96 mm[Hg] Mbanefo OJUKWU [facility] 12-22-2022 19:33-0400 Heart rate 62 /min [facility]UK[facility] 12-22-2022 19:33-0400 SaO2% (BldA) [Mass fraction] 97 % Mbanefo [facility]UKW[facility] 12-22-2022 19:33-0400 Body temperature 98.24 [degF] Mbanefo OJUKWU [facility] 12-22-2022 19:32-0400 Mean blood pressure 69 mm[Hg] Mbanefo OJUKWU [facility] 12-22-2022 16:03-0400 gluc 129 mg/dL Mbanefo OJUKW[facility] 12-22-2022 15:46-0400 Respiratory rate 16 /min Mbanefo OJUKW[facility] 12-22-2022 11:52-0400 gluc 158 mg/dL Mbanefo OJUKWU [facility] 12-22-2022 11:13-0400 Respiratory rate 13 /min Mbanefo [facility]JUKW[facility] 12-22-2022 06:56-0400 Blood Pressure Location Mbanefo OJUKWU [facility] 12-22-2022 06:56-0400 Body temperature 98.42 [degF] Mbanefo OJUKW[facility] 12-22-2022 06:56-0400 Mean blood pressure 85 mm[Hg] Mbanefo OJUKWU [facility] 12-21-2022 23:00-0400 Blood Pressure Location Mbanefo OJUKWU [facility] 12-21-2022 23:00-0400 Body temperature 98.96 [degF] Mbanefo [facility]JUKWU [facility] 12-21-2022 23:00-0400 Mean blood pressure 84 mm[Hg] Mbanefo OJUKWU [facility] 12-21-2022 05:35-0400 Mean blood pressure 79 mm[Hg] Mbanefo OJUKWU [facility] 12-20-2022 21:08-0400 Body temperature 97.7 [degF] Mbanefo OJUKWU [facility] 12-20-2022 21:08-0400 Heart rate 65 /min Mbanefo OJUKWU [facility] 12-20-2022 15:06-0400 Heart rate 75 /min Mbanefo OJUKWU [facility] 12-20-2022 00:45-0400 Diastolic blood pressure 72 mm[Hg] David Ran [facility] 12-20-2022 00:45-0400 Heart rate 76 /min David Ran [facility] 12-20-2022 00:45-0400 Mean blood pressure 89 mm[Hg] David Ran [facility] 12-20-2022 00:45-0400 Respiratory rate 14 /min David Ran [facility] 12-20-2022 00:45-0400 SaO2% (BldA) [Mass fraction] 100 % David Ran [facility] 12-20-2022 00:45-0400 Systolic blood pressure 124 mm[Hg] David Ran [facility] 12-20-2022 00:15-0400 Diastolic blood pressure 70 mm[Hg] David Ran [facility] 12-20-2022 00:15-0400 Heart rate 71 /min David Ran [facility] 12-20-2022 00:15-0400 Mean blood pressure 92 mm[Hg] David Ran [facility] 12-20-2022 00:15-0400 Respiratory rate 14 /min David Ran [facility] 12-20-2022 00:15-0400 SaO2% (BldA) [Mass fraction] 92 % David Ran [facility] 12-20-2022 00:15-0400 Systolic blood pressure 137 mm[Hg] David Ran [facility] 12-19-2022 23:45-0400 Diastolic blood pressure 61 mm[Hg] David Ran [facility] 12-19-2022 23:45-0400 Heart rate 80 /min David Ran [facility] 12-19-2022 23:45-0400 Mean blood pressure 85 mm[Hg] David Ran [facility] 12-19-2022 23:45-0400 Respiratory rate 16 /min David Ran [facility] 12-19-2022 23:45-0400 SaO2% (BldA) [Mass fraction] 97 % David Ran [facility] 12-19-2022 23:45-0400 Systolic blood pressure 132 mm[Hg] David Ran [facility] 12-19-2022 20:41-0400 Body temperature 98.24 [degF] David Ran [facility] 12-19-2022 20:41-0400 Heart rate 82 /min David Ran [facility] 12-19-2022 20:41-0400 Respiratory rate 20 /min David Ran [facility] 12-17-2022 13:20-0400 Diastolic blood pressure 77 mm[Hg] Jeffery Katherine [facility] 12-17-2022 13:20-0400 Heart rate 60 /min Jeffery Katherine [facility] 12-17-2022 13:20-0400 Hourly Rounding Jeffery Katherine [facility] 12-17-2022 13:20-0400 Mean blood pressure 95 mm[Hg] Jeffery Katherine [facility] 12-17-2022 13:20-0400 Promise to Return Jeffery Katherine [facility] 12-17-2022 13:20-0400 SaO2% (BldA) [Mass fraction] 97 % Jeffery Katherine [facility] 12-17-2022 13:20-0400 Systolic blood pressure 132 mm[Hg] Jeffery Katherine [facility] 12-17-2022 12:20-0400 Diastolic blood pressure 71 mm[Hg] Jeffery Katherine [facility] 12-17-2022 12:20-0400 Heart rate 71 /min Jeffery Katherine [facility] 12-17-2022 12:20-0400 Hourly Rounding Jeffery Katherine [facility] 12-17-2022 12:20-0400 Mean blood pressure 86 mm[Hg] Jeffery Katherine [facility] 12-17-2022 12:20-0400 Promise to Return Jeffery Katherine [facility] 12-17-2022 12:20-0400 SaO2% (BldA) [Mass fraction] 96 % Jeffery Katherine [facility] 12-17-2022 12:20-0400 Systolic blood pressure 117 mm[Hg] Jeffery Katherine [facility] 12-17-2022 11:21-0400 Hourly Rounding Jeffery Murphy [facility] 12-17-2022 11:21-0400 Promise to Return Jeffery Murphy [facility] 12-17-2022 11:20-0400 Diastolic blood pressure 84 mm[Hg] Jeffery Castelane [facility] 12-17-2022 11:20-0400 Heart rate 68 /min Jeffery Castelane [facility] 12-17-2022 11:20-0400 Mean blood pressure 99 mm[Hg] Jeffery Castelane [facility] 12-17-2022 11:20-0400 Respiratory rate 18 /min Jeffery Castelane [facility] 12-17-2022 11:20-0400 SaO2% (BldA) [Mass fraction] 96 % Jeffery Castelane [facility] 12-17-2022 11:20-0400 Systolic blood pressure 130 mm[Hg] Jeffery Castelane [facility] 12-17-2022 10:22-0400 Body temperature 97.88 [degF] Jeffery Castelane [facility] 12-17-2022 10:22-0400 Heart rate 69 /min Jeffery Castelane [facility] 12-17-2022 10:22-0400 Respiratory rate 18 /min Jeffery Castelane [facility] 11-04-2022 14:00-0400 Hourly Rounding Ronobir JESSICA [facility] 11-04-2022 13:40-0400 Hourly Rounding Ronobir JESSICA [facility] 11-04-2022 13:40-0400 Promise to Return Ronobir JESSICA [facility] 11-04-2022 13:00-0400 Hourly Rounding Ronobir JESSICA [facility] 11-04-2022 12:26-0400 Promise to Return Ronobir JESSICA [facility] 11-04-2022 11:48-0400 Heart rate 78 /min Ronobir JESSICA [facility] 11-04-2022 11:48-0400 SaO2% (BldA) [Mass fraction] 95 % Ronobir JESSICA [facility] 11-04-2022 11:48-0400 Diastolic blood pressure 83 mm[Hg] Ronobir JESSICA [facility] 11-04-2022 11:48-0400 Mean blood pressure 96 mm[Hg] Ronobir JESSICA [facility] 11-04-2022 11:48-0400 Systolic blood pressure 122 mm[Hg] Ronobir JESSICA [facility] 11-04-2022 11:48-0400 Body temperature 98.24 [degF] Ronobir JESSICA [facility] 11-04-2022 11:17-0400 Promise to Return Ronobir JESSICA [facility] 11-04-2022 08:24-0400 Diastolic blood pressure 78 mm[Hg] Ronobir JESSICA [facility] 11-04-2022 08:24-0400 Systolic blood pressure 127 mm[Hg] Ronobir JESSICA [facility] 11-04-2022 07:32-0400 Heart rate 77 /min Ronobir JESSICA [facility] 11-04-2022 07:32-0400 SaO2% (BldA) [Mass fraction] 94 % Ronobir JESSICA [facility] 11-04-2022 07:31-0400 Body temperature 97.7 [degF] Ronobir JESSICA [facility] 11-04-2022 07:31-0400 Diastolic blood pressure 78 mm[Hg] Ronobir JESSICA [facility] 11-04-2022 07:31-0400 Mean blood pressure 94 mm[Hg] Ronobir JESSICA [facility] 11-04-2022 07:31-0400 Systolic blood pressure 127 mm[Hg] Ronobir JESSICA [facility] 11-03-2022 23:16-0400 Heart rate 79 /min Ronobir JESSICA [facility] 11-03-2022 23:16-0400 SaO2% (BldA) [Mass fraction] 97 % Ronobir JESSICA [facility] 11-03-2022 23:16-0400 Mean blood pressure 108 mm[Hg] Ronobir JESSICA [facility] 11-03-2022 23:15-0400 Body temperature 97.7 [degF] Ronobir JESSICA [facility] 11-03-2022 20:00-0400 Blood Pressure Location Ronobir JESSICA [facility] 11-03-2022 20:00-0400 Respiratory rate 21 /min Ronobir JESSICA [place] [id number] 09:00-0400 Mean blood pressure 87 mm[Hg] Ronobir JESSICA [facility] 11-03-2022 09:00-0400 Respiratory rate 16 /min Ronobir JESSICA [facility] 11-02-2022 21:15-0400 Mean blood pressure 95 mm[Hg] Ronobir JESSICA [facility] 11-02-2022 11:51-0400 Respiratory rate 18 /min Ronobir JESSICA [facility] 11-02-2022 03:50-0400 Heart rate 68 /min Ronobir JESSICA [facility] 11-02-2022 03:18-0400 Respiratory rate 10 /min Ronobir JESSICA [facility] 11-02-2022 02:38-0400 Nursing Progress Note Reason Other: pt complains of back pain. repositioned in bed. medicated for pain. Ronobir JESSICA [facility] 11-02-2022 02:38-0400 Respiratory rate 7 /min Ronobir JESSICA [facility] 11-02-2022 02:37-0400 Heart rate 73 /min Ronobir JESSICA [facility] 11-01-2022 23:15-0400 Nursing Progress Note Reason Other: trauma made medical at this time. mini cath done and urine sent to lab. pt repositioned in bed Ronobir JESSICA [facility] 11-01-2022 22:53-0400 Body temperature 96.62 [degF] Ronobir JESSICA [facility] 11-01-2022 22:53-0400 Heart rate 74 /min Ronobir JESSICA [facility] 11-01-2022 22:03-0400 Heart rate 69 /min Ronobir JESSICA [facility] 08-01-2022 13:00-0400 Blood Pressure Location [facility] 08-01-2022 13:00-0400 Body temperature 98.6 [degF] [facility]-01-[facility]22 13:00-0400 Diastolic blood pressure 84 mm[Hg] [facility] 08-01-2022 13:00-0400 Heart rate 76 /min [facility] 08-01-2022 13:00-0400 Mean blood pressure 101 mm[Hg] [facility] 08-01-2022 13:00-0400 Respiratory rate 16 /min [facility] 08-01-2022 13:00-0400 SaO2% (BldA) [Mass fraction] 97 % [facility] 08-01-2022 13:00-0400 Systolic blood pressure 136 mm[Hg] [facility] 06-06-2022 12:59-0500 Heart rate 61 /min [facility] 06-06-2022 12:59-0500 SaO2% (BldA) [Mass fraction] 98 % [facility] 06-06-2022 12:59-0500 Respiratory rate 16 /min [facility] 06-06-2022 12:59-0500 Body temperature 97.7 [degF] [facility]-06-2022 12:58-0500 Diastolic blood pressure 106 mm[Hg] [facility] 06-06-2022 12:58-0500 Mean blood pressure 116 mm[Hg] [facility] 06-06-2022 12:58-0500 Systolic blood pressure 137 mm[Hg] Senthilleopoldo Caldera [facility] 03-28-2022 14:10-0500 Heart rate 66 /min [facility] 03-28-2022 14:10-0500 SaO2% (BldA) [Mass fraction] 96 % [facility] 03-28-2022 14:09-0500 Body temperature 98.42 [degF] [facility] 03-28-2022 14:09-0500 Diastolic blood pressure 77 mm[Hg] [facility] 03-28-2022 14:09-0500 Mean blood pressure 93 mm[Hg] [facility] 03-28-2022 14:09-0500 Systolic blood pressure 127 mm[Hg] [facility] 03-28-2022 14:09-0500 Blood Pressure Location [facility] 03-28-2022 14:09-0500 Body temperature 98.42 [degF] [facility] 03-28-2022 14:09-0500 Mean blood pressure 94 mm[Hg] [facility] 03-28-2022 14:09-0500 Respiratory rate 18 /min [facility] 01-18-2022 14:13-0400 Blood Pressure Location [facility] 01-18-2022 14:13-0400 Body temperature 98.06 [degF] [facility] 01-18-2022 14:13-0400 BP/Pulse Patient Position [facility] 01-18-2022 14:13-0400 Diastolic blood pressure 82 mm[Hg] [facility] 01-18-2022 14:13-0400 Heart rate 59 /min [facility] 01-18-2022 14:13-0400 Mean blood pressure 98 mm[Hg] Senthil Caldera [facility] 01-18-2022 14:13-0400 Respiratory rate 16 /min Senthil Caldera [facility] 01-18-2022 14:13-0400 SaO2% (BldA) [Mass fraction] 98 % Senthilleopoldo Caldera [facility] 01-18-2022 14:13-0400 Systolic blood pressure 131 mm[Hg] Senthil Caldera [facility] 12-21-2021 13:34-0400 Blood Pressure Location Nohemi Garcia [facility] 12-21-2021 13:34-0400 Body temperature 98.6 [degF] Nohemi Garcia [facility] 12-21-2021 13:34-0400 BP/Pulse Patient Position Nohemi Garcia [facility] 12-21-2021 13:34-0400 Diastolic blood pressure 85 mm[Hg] Nohemi Garcia [facility] 12-21-2021 13:34-0400 Heart rate 67 /min Nohemi Garcia [facility] 12-21-2021 13:34-0400 Mean blood pressure 101 mm[Hg] Nohemi Felizboske [facility] 12-21-2021 13:34-0400 Respiratory rate 18 /min Nohemi Garcia [facility] 12-21-2021 13:34-0400 SaO2% (BldA) [Mass fraction] 93 % Nohemi Urbinake [facility] 12-21-2021 13:34-0400 Systolic blood pressure 132 mm[Hg] Nohemi Felizboske [facility] 12-21-2021 13:34-0400 Mean blood pressure 101 mm[Hg] Nohemi Felizboske [facility] 11-30-2021 13:16-0400 Body temperature 98.24 [degF] [facility] 11-30-2021 13:16-0400 Diastolic blood pressure 79 mm[Hg] Senthilleopoldo Caldera [facility] 11-30-2021 13:16-0400 Heart rate 78 /min [facility] 11-30-2021 13:16-0400 Mean blood pressure 98 mm[Hg] [facility] 11-30-2021 13:16-0400 SaO2% (BldA) [Mass fraction] 96 % [facility] 11-30-2021 13:16-0400 Systolic blood pressure 136 mm[Hg] [facility] 11-30-2021 13:00-0400 Blood Pressure Location [facility] 11-30-2021 13:00-0400 Respiratory rate 16 /min [facility] 11-02-2021 11:53-0400 Blood Pressure Location Nohemi Garcia [facility] 11-02-2021 11:53-0400 Body temperature 98.06 [degF] Nohemi Garcia [facility] 11-02-2021 11:53-0400 BP/Pulse Patient Position Nohemi Garcia [facility] 11-02-2021 11:53-0400 Diastolic blood pressure 64 mm[Hg] Nohemi Garcia [facility] 11-02-2021 11:53-0400 Heart rate 64 /min Nohemi Garcia [facility] 11-02-2021 11:53-0400 Mean blood pressure 89 mm[Hg] Nohemi Garcia [facility] 11-02-2021 11:53-0400 Respiratory rate 17 /min Nohemi Garcia [facility] 11-02-2021 11:53-0400 SaO2% (BldA) [Mass fraction] 97 % Nohemi Garcia [facility] 11-02-2021 11:53-0400 Systolic blood pressure 140 mm[Hg] Nohemi Garcia [facility] 10-05-2021 13:46-0400 Body temperature 98.42 [degF] [facility] 10-05-2021 13:46-0400 Diastolic blood pressure 83 mm[Hg] [facility] 10-05-2021 13:46-0400 Heart rate 69 /min [facility] 10-05-2021 13:46-0400 Mean blood pressure 104 mm[Hg] [facility] 10-05-2021 13:46-0400 SaO2% (BldA) [Mass fraction] 96 % [facility] 10-05-2021 13:46-0400 Systolic blood pressure 146 mm[Hg] [facility] 09-07-2021 12:48-0400 Body temperature 98.6 [degF] [facility] 09-07-2021 12:48-0400 Diastolic blood pressure 70 mm[Hg] [facility] 09-07-2021 12:48-0400 Heart rate 72 /min [facility] 09-07-2021 12:48-0400 Mean blood pressure 83 mm[Hg] [facility] 09-07-2021 12:48-0400 SaO2% (BldA) [Mass fraction] 96 % [facility] 09-07-2021 12:48-0400 Systolic blood pressure 109 mm[Hg] [facility] 09-07-2021 12:00-0400 Heart rate 69 /min Senthil Caldera [facility] 09-07-2021 12:00-0400 SaO2% (BldA) [Mass fraction] 98 % Senthil Caldera [facility] 09-03-2021 00:20-0400 Body temperature 98.78 [degF] Carlos Martin [facility] 09-03-2021 00:20-0400 Diastolic blood pressure 80 mm[Hg] Carlos Martin [facility] 09-03-2021 00:20-0400 Heart rate 86 /min Carlos Martin [facility] 09-03-2021 00:20-0400 Respiratory rate 16 /min Carlos Martin [facility] 09-03-2021 00:20-0400 SaO2% (BldA) [Mass fraction] 95 % Carlos Martin [facility] 09-03-2021 00:20-0400 Systolic blood pressure 146 mm[Hg] Carlos Martin [facility] 08-10-2021 12:35-0400 Body temperature 98.06 [degF] Rickey Askew [facility] 08-10-2021 12:35-0400 Diastolic blood pressure 72 mm[Hg] Rickey Askew [facility] 08-10-2021 12:35-0400 Heart rate 77 /min Rickey Askew [facility] 08-10-2021 12:35-0400 Mean blood pressure 84 mm[Hg] Rickey Askew [facility] 08-10-2021 12:35-0400 Respiratory rate 12 /min Rickey Askew [facility] 08-10-2021 12:35-0400 SaO2% (BldA) [Mass fraction] 97 % Rickey Askew [facility] 08-10-2021 12:35-0400 Systolic blood pressure 108 mm[Hg] Rickey Askew [facility] 07-26-2021 10:27-0400 Body temperature 97.88 [degF] [facility] 07-26-2021 10:27-0400 Diastolic blood pressure 84 mm[Hg] [facility] 07-26-2021 10:27-0400 Heart rate 59 /min [facility] 07-26-2021 10:27-0400 Mean blood pressure 112 mm[Hg] [facility] 07-26-2021 10:27-0400 SaO2% (BldA) [Mass fraction] 97 % [facility] 07-26-2021 10:27-0400 Systolic blood pressure 169 mm[Hg] [facility] 07-26-2021 10:00-0400 Respiratory rate 16 /min [facility] 07-18-2021 12:18-0400 Body temperature 97.7 [degF] [facility] 07-18-2021 12:18-0400 Diastolic blood pressure 83 mm[Hg] [facility] 07-18-2021 12:18-0400 Heart rate 60 /min [facility] 07-18-2021 12:18-0400 Mean blood pressure 106 mm[Hg] [facility] 07-18-2021 12:18-0400 SaO2% (BldA) [Mass fraction] 98 % [facility] 07-18-2021 12:18-0400 Systolic blood pressure 152 mm[Hg] [facility] 07-18-2021 12:00-0400 Respiratory rate 16 /min Senthil Caldera [facility] 07-11-2021 10:20-0400 Body temperature 97.7 [degF] Gavino TABOR [facility] [place] Encounters Encounter Date Encounter Type Care Provider Facility Start: 08-30-2023 End: 08-30-2023 ambulatory Senthil Caldera II Facility:[facility] Start: 08-30-2023 End: 08-30-2023 ambulatory MD Mary Rodriguez Work Phone: [facility] Work Phone: Start: 08-30-2023 End: 08-30-2023 Patient encounter procedure MD Mary Rodriguez Work Phone: [facility] Work Phone: Start: 06-12-2023 End: 06-13-2023 ambulatory Senthil Caldera [facility] Start: 06-12-2023 End: 06-12-2023 Patient encounter procedure Senthil Caldera [facility] Start: 06-05-2023 Clinisync Result Encounter Mary Rodriguez MD Work Phone: [facility] Unsolicited Start: 06-05-2023 Clinisync Result Encounter Mary Rodriguez MD Work Phone: [facility] Start: 05-31-2023 External Result Encounter Senthil Caldera DO Work Phone: [facility] Start: 05-31-2023 External Result Encounter Senthil Caldera DO Work Phone: [facility] Start: 05-31-2023 End: 05-31-2023 ambulatory Senthil Caldera II Facility:[facility] Start: 05-31-2023 End: 02-09-2024 ambulatory MD Mary Rodriguez Work Phone: [facility] Work Phone: Start: 05-31-2023 End: 05-31-2023 Patient encounter procedure MD Mary Rodriguez Work Phone: [facility] Work Phone: Start: 05-24-2023 Clinisync Result Encounter Mary Rodriguez MD Work Phone: [facility] Start: 05-24-2023 Clinisync Result Encounter Mary Rodriguez MD Work Phone: [facility] Start: 05-01-2023 End: 05-02-2023 ambulatory Senthilleopoldo Hollidayjuliaflaquito [place] Start: 05-01-2023 End: 05-01-2023 Patient encounter procedure Senthil Verenice [facility] Start: 01-30-2023 End: 01-31-2023 ambulatory Senthilleopoldo Hollidayjuliaflaquito [facility] Start: 01-30-2023 End: 01-30-2023 Patient encounter procedure Senthilleopoldo Hollidayeligio [facility] Start: 12-20-2022 End: 12-23-2022 Evaluation and management of inpatient Zaheer Odell Sloan [facility] Start: 12-20-2022 End: 12-23-2022 Evaluation and management of inpatient Nic NaborJUKWU [facility] Start: 12-19-2022 End: 12-20-2022 Emergency department patient visit David Ran [facility] Start: 12-19-2022 End: 12-20-2022 Emergency department patient visit David Ran [facility] Start: 12-17-2022 End: 12-17-2022 Emergency department patient visit Jeffery Murphy Facility[facility] Start: 12-17-2022 End: 12-17-2022 Emergency department patient visit Jeffery Murphy [facility] Start: 12-14-2022 End: 12-15-2022 ambulatory Sammy QUEZADA Facility:[id number] Start: 12-14-2022 End: 12-14-2022 Manual pelvic examination [facility] Start: 12-05-2022 ambulatory Lorie Wright y:CD:[id number] Start: 11-16-2022 End: 12-16-2022 ambulatory Senthil Verenice Facility:[id number] Start: 11-16-2022 End: 12-16-2022 In-Between Visit [facility] Start: 11-06-2022 End: 11-07-2022 ambulatory Sammy QUEZADA Facility:[id number] Start: 11-06-2022 End: 11-06-2022 Off-Site [facility] Start: 11-04-2022 End: 12-15-2022 ambulatory Sammy QUEZADA [facility] Start: 11-01-2022 End: 11-04-2022 ambulatory Wyatt Murray [facility] Start: 11-01-2022 End: 11-04-2022 Observation Mariia LOPEZ [facility] Start: 09-27-2022 End: 09-28-2022 ambulatory Nohemi Garcia [facility] Start: 09-25-2022 End: 09-26-2022 ambulatory Senthil Interianoflaquito [facility] Start: 09-25-2022 End: 09-25-2022 Patient encounter procedure Senthil Caldera [facility] Start: 09-08-2022 End: 09-08-2022 Emergency department patient visit Pedro Nava Facility[place] Start: 09-08-2022 End: 09-09-2022 ambulatory Senthil Caldera [facility] Start: 08-01-2022 End: 08-02-2022 ambulatory Senthil Caldera [facility] Start: 08-01-2022 End: 08-01-2022 Patient encounter procedure Senthil Caldera [facility] Start: 07-30-2022 End: 07-31-2022 ambulatory Senthil Caldera [facility] Start: 07-30-2022 End: 07-30-2022 Patient encounter procedure Senthil Caldera [facility] Start: 07-25-2022 End: 10-24-2022 ambulatory Senthil Caldera [facility] Start: 07-25-2022 End: 10-23-2022 Recurring Senthil Caldera [place] Start: 07-09-2022 End: 07-10-2022 ambulatory Senthil Caldera [facility] Start: 07-09-2022 End: 07-09-2022 Patient encounter procedure Senthil Caldera [facility] Start: 06-06-2022 End: 06-06-2022 Patient encounter procedure Senthil Cladera [facility] Start: 03-28-2022 End: 03-28-2022 Patient encounter procedure Senthil Caldera [facility] Start: 03-17-2022 End: 06-17-2022 Recurring Nohemi Marquezandie Garcia [facility] Start: 01-18-2022 End: 01-18-2022 Patient encounter procedure Senthil Caldera [facility] Start: 01-02-2022 End: 09-03-2022 Recurring Senthil Caldera [place] Start: 12-26-2021 End: 12-26-2021 Patient encounter procedure Senthil Caldera [facility] Start: 12-21-2021 End: 12-21-2021 Patient encounter procedure Nohemi Garcia [facility] Start: 11-30-2021 End: 11-30-2021 Patient encounter procedure Senthil Caldera [facility] Start: 11-27-2021 End: 11-27-2021 Patient encounter procedure Senthil Caldera [facility] Start: 11-25-2021 End: 02-23-2022 Recurring Nohemi Garcia [facility] Start: 11-02-2021 End: 11-02-2021 Patient encounter procedure Nohemi Garcia [facility] Start: 11-01-2021 End: 11-01-2021 Patient encounter procedure Senthil Caldera [facility] Start: 10-05-2021 End: 10-05-2021 Patient encounter procedure Senthil Caldera [facility] Start: 10-02-2021 End: 10-02-2021 Patient encounter procedure Senthil Caldera [facility] Start: 09-07-2021 End: 09-07-2021 Patient encounter procedure Senthil Caldera [facility] Start: 09-03-2021 End: 09-03-2021 Emergency department patient visit Carlos Salazar [facility] Start: 08-21-2021 End: 08-21-2021 Patient encounter procedure Senthil Caldera [facility] Start: 08-21-2021 End: 08-21-2021 Patient encounter procedure Senthil Caldera [facility] Start: 08-10-2021 End: 08-10-2021 Patient encounter procedure Rickey Askew [facility] Start: 08-07-2021 End: 08-07-2021 Patient encounter procedure Senthil Caldera [facility] Start: 07-26-2021 End: 07-26-2021 Patient encounter procedure Senthil Caldera [facility] Start: 07-26-2021 End: 07-26-2021 Patient encounter procedure Senthil Caldera [facility] Start: 07-25-2021 End: 08-18-2021 Pre-admission assessment Gavino TABOR [facility] Start: 07-18-2021 End: 07-18-2021 Patient encounter procedure Senthil Caldera [facility] Start: 07-11-2021 End: 07-11-2021 Patient encounter procedure Gavino TABOR [facility] [place] Procedures Date Procedure Procedure Detail Performing Clinician Start: 08-30-2023 Positron emission tomography with computed tomography MD Mary Rodriguez Work Phone: Start: 06-05-2023 ALL CBC WITH AUTO DIFF Mary Rodriguez MD Work Phone: Start: 05-31-2023 Positron emission tomography with computed tomography MD Mary Rodriguez Work Phone: Start: 05-31-2023 GLUCOSE POCT GLUCOMETERS Senthil Caldera DO Work Phone: Start: 05-24-2023 ALL CBC WITH AUTO DIFF Mary Rodriguez MD Work Phone: Start: 07-04-2021 Core needle biopsy o f breast Gavino TABOR Comment on above: right Start: 04-10-2020 Colonoscopy Mary Rodriguez MD Work Phone: Tonsillectomy and adenoidectomy Gavino TABOR Plan of Treatment Date Care Activity Detail Author Start: 04-10-2030 Screening for malign ant neoplasm of colon [facility] Start: 01-24-2023 Hemoglobin A1c measurement Diabetes: Hemoglobin A1C [facility] Start: 12-21-2022 Influenza vaccination Influenza Vacc ine (#1) [facility] Start: 09-13-2022 Medicare Annual Well ness (AWV) Medicare Annual Wellness (AWV) [facility] Start: 07-09-1959 Glaucoma screening Diabetes: R etinopathy Screening [facility] Start: 1950 Screening for malign ant neoplasm of colon [facility] Immunizations Immunization Date Immunization Notes Care Provider Fa [facility] 02-13-2021 Influenza, High-dose Seasonal, Quadrivalent, Preservative Free Mary Rodriguez MD Work Phone: [facility] 02-13-2021 influenza virus vaccine, unspecified formulation Mary Rodriguez MD Work Phone: [facility] 01-20-2021 influenza virus vaccine, unspecified formulation Gavino TABOR [facility] [place] 05-22-2019 influenza, high dose seasonal, preservative-free Mary Rodriguez MD Work Phone: [facility] 03-19-2018 influenza, high dose seasonal, preservative-free Mary Rodriguez MD Work Phone: [facility] 04-12-2017 influenza, high dose seasonal, preservative-free Mary Rodriguez MD Work Phone: [facility] 04-12-2017 pneumococcal conjuga te vaccine, 13 valent Mary Rodriguez MD Work Phone: [facility] Payers Date Payer Category Payer Self-pay 2023 Medicaid [id number] 2022 Medicare [id number] 2022 Unknown [employer] [id number] 2022-Present [address] [place] [id number] 2021 Private Health Insurance [id number] 1950 Unknown [id number] [id number] 27 1949 Unknown [id number] 2.16.840.1.291895.3.579.2.7 27 1949 Unknown [id number] 2.16.840.1.456987.3.579.2.7 27 1949 Unknown [id number] 2.16.840.1.861355.3.579.2.7 27 1949 Unknown [id number] 2.16.840.1.754387.3.579.2.7 27 1949 Unknown [id number] 2.16.840.1.146801.3.579.2.7 27 1949 Unknown [id number] 2.16.840.1.754761.3.579.2.7 27 1949 Unknown [id number] 2.16.840.1.390193.3.579.2.7 27 1949 Unknown [id number] 2.16.840.1.929067.3.579.2.7 27 1949 Unknown [id number] 2.16.840.1.834022.3.579.2.7 27 1949 Unknown [id number] 2.16.840.1.084711.3.579.2.7 27 1949 Unknown [id number] 2.16.840.1.125729.3.579.2.7 27 1949 Unknown [id number] 2.16.840.1.204669.3.579.2.7 27 1949 Unknown [id number] 2.16.840.1.916474.3.579.2.7 27 1949 Unknown [id number] 2.16.840.1.172155.3.579.2.7 27 1949 Unknown [id number] 2.16.840.1.230711.3.579.2.7 27 1949 Unknown [id number] 2.16.840.1.973768.3.579.2.7 27 1949 Unknown [id number] 2.16.840.1.211674.3.579.2.7 27 1949 Unknown [id number] 2.16.840.1.019638.3.579.2.7 27 1949 Unknown [id number] 2.16.840.1.829598.3.579.2.7 27 Medicare Medicare [id number] Unknown [id number] 2.16.840.1.347694.3.579.2.5 31 Unknown [id number] 2.16.840.1.632572.3.579.2.5 31 Social History Date Type Detail Facility Start: 07-04-2021 End: 09-19-2022 Tobacco smoking status Never smoked tobacco (finding) [facility] [place] [facility] [place] Start: 10-24-2022 [facility] [place] Start: 09-19-2022 Tobacco use and exposure Smokeless tobacco non-user [facility] Start: 10-24-2022 History of Social function [facility] Start: 1950 Sex Assigned At Not on file [facility] Start: 1950 Sex Assigned At Female F [facility] Functional Status Date Assessment Result Facility 12-20-[address] [facility] 12-20-[address] [facility] 12-19-2022 Functional Status N/A [facility] 12-17-2022 Functional Status N/A [facility] 11-02-2022 Functional Status N/A [facility] 11-01-[address] [facility] Clinical Notes 07-11-2021 to 06-12-2023 Note Date [...] high-protein foods. Preparing meals Add whole milk, [id number], or heavy cream to cereal, pudding, soup, [...] potatoes. Grains Pasta. Quick breads. Muffins. Pancakes. [id number] cereal. Meats and other proteins Peanut butter. [...] provider. Document Revised: 03/12/2021 Document Reviewed: 03/12/2021 [employer] Patient Education 2022 [employer]. 06/12/2023 11:25:57 Breast Cancer, Female Breast Cancer, [...] to women from the 1940s to the 1970s. Other risks include: Using control pills. Using [...] cancer. Follow these instructions at home: Take zphr-rzn-wnfvxpt and prescription medicines only as told by [...] is important. Where to find more information [employer]: www.cancer.org National Cancer [place]: www.cancer.gov Contact a health care provider if: [...] provider. Document Revised: 02/26/2022 Document Reviewed: 02/26/2022 [employer] Patient Education 2022 [employer]. 06/12/2023 11:25:02 Fall Prevention in the Home, Adult, Uzqj-le-Kagb Fall Prevention in the Home, Adult Falls [...] Keep items that you use often in lnrq-gv-mvtox places. Lower the shelves around your home [...] of the way. Do not use floor portuguese or wax that makes floors slippery. What [...] more information Centers for Disease Control and Prevention, [employer]: www.cdc.gov National [place] on Aging: www.derrick.nih.gov Contact a doctor if: [...] provider. Document Revised: 01/08/2022 Document Reviewed: 11/09/2020 [employer] Patient Education 2022 [employer]. Follow Up Care 05/01/2023 15:02:18 With:Senthil Caldera DO, ONC Address: [place] [address] [place] [address] [phone] Fax Business (1) When: Unknown Comments:cbc, cmp, iron studies, b12, foalte, epo [id number] monthly. f/u in 3 months. change arimidex to exemestane 25mg daily. pet/ct prior to f/u.make sure images from pet from may and august are both in our system for review at f/u in august. [facility] 01-30-2023 Hospital Discharg e instructions Follow Up Care 01/30/2023 15:16:04 With:Senthil Caldera [address] [place] [phone] Fax Business (1) When: Unknown Comments:f/u in 6 wks. pet/ct in [facility] soon. f/u after. cbc, cmp, iron studies, b12, foalte, epo, [id number] prior to f/u. [facility] 12-23-2022 Evaluation + Plan note Extrac yajaira from: Title:Discharge Note Author:Zaheer Sloan DO Date:12/23/22 Discharge To, Anticipated II - Penitentiary Unit Transported by, Anticipated - Wheelchair van [...] When Contact Information Azar HANKS, Rickey Lynn, [address] [address]- Additional Instructions: Antibiotic Medicine, Adult, Twfe-zy-Svkt Extracted from: Title:APSO Note Author:Zaheer Sloan DO [...] Ordered: Initial Hospital Care/Day Moderate 55 Minutes [id number] Sbsq Hospital Care/Day Straight Fwd 25 Minutes [id number] 2. 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 Age-related cognitive decline (R41.81: Age-related cognitive [...] Panel 10/25/22 * Comprehensive Metabolic Panel 11/22/22 [facility]09-03-2023 NoteKettering Health PrebleComment on above:Result Comment: Electronically Signed By: Zaheer Sloan DO.br\Date and Time Signed: 12/23/22 09:49 [id number] Hospital Discharge instructions Patient Education 12/23/2022 09:48:15 Antibiotic Medicine, Adult, Tika-dg-Qidt Antibiotic Medicine, Adult Antibiotic medicines treat infections [...] medicine. Follow these instructions at home: Take cikm-nfj-sgaectb and prescription medicines as told by your [...] provider. Document Revised: 01/26/2020 Document Reviewed: 01/26/2020 [employer] Patient Education 2022 [employer]. Follow Up Care 12/20/2022 15:04:36 With:Azar HANKS, NIKOLE Benedict Address: [address] [place] [id number] When: Unknown [facility]08-31-[address] [facility] CenterComment on above:Result Comment: Electronically Signed By: Nathalia LUDWIG, Zaheer Song.br\Date and Time Signed: 12/20/22 19:18 [id number] Evaluation + Plan note Extracted from: Title:ED Note Author:Ran HANKS, David Date: 1. Generalized weakness (R53 .1: Weakness) 2. Frequent falls (R29.6: Repeated falls) 3. Anemia (D64.9: Anemia, unspecified) 4. Dehydration (E86.0: Dehydration) 5. Urinary tract infection (N39.0: Urinary tract infection, site not specified) Orders: cephalexin, 500 mg = 1 cap(s), Oral, QID, X 7 day(s), # 28 cap(s), Refills(s) 0, Pharmacy: [facility], 167.6, cm, 12/19/22 20:43:00 EDT, Height/Length [...] Panel 10/25/22 * Comprehensive Metabolic Panel 11/22/22 [facility]08-31-2023 Hospital Discharge instructions Patient Education 12/20/2022 00:37:19 Urinary Tract Infection, Adult, Rvmn-ew-Jpsp Urinary Tract Infection, Adult A urinary tract [...] Follow these instructions at home: Medicines Take aoko-pkn-nkdqixr and prescription medicines only as told by [...] provider. Document Revised: 11/18/2020 Document Reviewed: 11/18/2020 [employer] Patient Education 2022 [employer]. 12/20/2022 00:37:19 Anemia Anemia Anemia is a [...] spleen. Follow these instructions at home: Take nlkg-ptz-icirxwe and prescription medicines only as told by [...] provider. Document Revised: 02/20/2022 Document Reviewed: 03/15/2020 [employer] Patient Education 2022 [employer]. 12/20/2022 00:37:19 Dehydration, Adult, Wdqv-kh-Ldlh Dehydration, Adult Dehydration is condition in which [...] of fat or sugar. General instructions Take cqlz-wfm-dndbexe and prescription medicines only as told by [...] start slowly drinking other clear fluids. Take amxd-wdx-yrojclg and prescription medicines only as told by your doctor. Get help right away if you have any symptoms of very bad dehydration. This information is not intended to replace advice given to you by your health care provider. Make sure you discuss any questions you have with your health care provider. Document Revised: 11/19/2019 Document Reviewed: 11/19/2019 [employer] Patient Education 2022 [employer]. Follow Up Care 12/19/2022 20:39:35 With:Rickey Askew Address: [facility] [address] [place] [address]- Business (1) When:12/21/2022 [facility]08-28-2023 Hospital Discharge instructions Patient Education [...] Follow these instructions at home: Medicines Take wgba-oli-zabjxzm and prescription medicines only as told by [...] as fried or sweet foods. ?Take an usjh-zqd-gtdvufb or prescription medicine for constipation. If you [...] provider. Document Revised: 02/05/2022 Document Reviewed: 02/05/2022 [employer] Patient Education 2022 [employer]. Follow Up Care 12/17/2022 10:20:15 With:JOSÉ ANTONIO VARGAS Address: [address] [address] Business (1) When:12/20/2022 12:53:13 With:Gavino Erickson Address: [address] [place] [address] Business (1) When:12/20/2022 12:52:03 With:Rickey Askew Address: [address] [place] [address] Business (1) When:12/20/2022 12:51:59 [facility]08-28-2023 Evaluation + Plan noteExtracted from: Title:ED Note Author:Gui Scruggs PA-C te:12/17/22 Fall (W19.XXXA: Unspecified fall, initial encounter) Lumbar compression fracture (S32.000A: Wedge compression fracture of unspecified lumbar vertebra, initial encounter for closed fracture) Ordered: oxycodone, 5 mg = 1 tab(s), Oral, q6hr, X 3 day(s), # 15 tab(s), Refills(s) 0, Pharmacy: [facility], 168, cm, 12/17/22 10:29:00 EDT, Height/Length [...] Date:12/26/2022 02:45:00 PM Scheduled Provider:Senthil Caldera DO Location:.ONCOLOGY Appointment Type:ONC Office Visit 15 (FT) Future Scheduled Tests Laboratory* CA 27 29 10/25/22 * CA 27 29 11/22/22 * CBC w/ Auto Diff 10/25/22 * CBC w/ Auto Diff 11/22/22 * Comprehensive Metabolic Panel 10/25/22 * Comprehensive Metabolic Panel 11/22/22 [facility]07-16-2023 NoteFishWestern Maryland Hospital CenterComment on above:Result Comment: Electronically Signed By: Trevor HANKS, Wyatt\.br\Date and Time Signed: 11/04/22 12:37 [id number] Hospital Discharge instructions Patient Education 11/04/2022 12:28:31 [...] Consider working with a physical therapist or salesforce trainer who can develop an exercise plan to help you gain muscle strength. General instructions Take xhvy-bmc-mnkdtnh and prescription medicines only as told by [...] provider. Document Revised: 03/11/2022 Document Reviewed: 03/11/2022 [employer] Patient Education 2022 [employer]. Follow Up Care 11/01/2022 19:54:24 With:Hollis MERRILL Address: [address] [address] Business (1) When: Unknown Comments:Urinary retnetion w/dooley With:Gavino Erickson Address: [address] [place] [address] Business (1) When: Unknown Comments:Call for followup appointment in 4 weeks for repeat pelvis xray With:Rickey Askew Address: [address] [place] [address] [employer] (1) When: Unknown [facility]07-16-2023 Evaluation + Plan noteExtracted from: Title:Discharge Note Author:Wyatt Murray MD ate:11/04/22 Stable Discharge To, Anticipated II - Penitentiary Unit Discharged to - group home unit Discharge Diet(s): Regular (11/02/22 15:25:00) Prescriptions anastrozole 1 mg Tab, 1 mg= 1 tab(s), Oral, Daily, 11 refills Arimidex 1 mg Tab, 1 mg= 1 tab(s), Oral, Daily, 3 refills ergocalciferol 50,000 intl units Cap, 81514 International_Unit= 1 cap(s), Oral, q7day Kisqali (200 [...] bedtime) With When Contact Information Gavino Erickson [address] [place] [phone] Business (1) Additional Instructions: Call for followup appointment in 4 weeks for repeat pelvis xray Rickey Askew In 0 days [address] [place] [address]- Business (1) Additional Instructions: Addendum by Trevor HANKS, [facility] ad on November 04, 2022 12:36:52 EDT Of note patient was found to have Urinary retention. Dooley cath was placed. A follow-up with urology was made. She will need to follow up w/urology Extracted from: Title:Admission H & P Author:JESSICA Adamshaq Gutierrez Date:11/02/22 1. 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 Pt. with 12/13 on AM-PAC this date. She is very resistant to movement due to pain. She is unable to stand even with attempts of max A. [facility] NoteKettering Health PrebleComment on above: Result Comment: Electronically Signed By: Mariia LOPEZ DO\Date and Time Signed: 11/02/22 01:35 [id number] Hospital Discharge instructions Follow Up Care 09/27/2022 14:06:46 With:Senthil Caldera Address: [address] [phone] Fax Business (1) When: Unknown Comments:f/u in 3 months. pet/ct prior to f/u. cont arimidex and kisquali. cbc, cmp and [id number] monthly. [facility]02-15-2023 Hospital Discharge instructions Follow Up Care 06/06/2022 13:40:28 With:Senthil Caldera Address: [address] [phone] Fax Business (1) When: Unknown Comments:cbc, cmp, [id number] in 4 weeks and prior to f/u in 8 weeks. 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 iron studies, b12, folate with next labs. [facility]12-07-2022 Hospital Discharge instructions Follow Up Care 03/28/2022 14:49:31 With:Senthil Caldera Address: [address] [phone] Fax Business (1) When: Unknown Comments:f/u in 2 months. pet/ct prior to f/ucbc, cmp, [id number], every 6 weeks. [facility]09-29-2022 Hospital Discharge instructions Follow Up Care 01/18/2022 14:52:57 With:Senthil Caldera Address: [address] [phone] Fax Business (1) When: Unknown Comments:raise kisquali to 400mg for 3wks on and 1 week off. f/u with or rajani in 2 months. cbc, cmp, [id number] prior to f/ucbc, cmp monthly onthis medicaztion cont arimidex. [facility]09-01-2022 Hospital Discharge instructions Follow Up Care 12/21/2021 14:19:38 With:Senthil Caldera Address: [address] [phone] Fax Business (1) When: Unknown Comments:continue Kisqali 200mg 3wks on, 1wk offcbc, cmp in 4wks and 8wksPET scan in Novfollow-up in 8wks with Dr. Hernandez after PET scan [facility]08-11-2022 Hospital Discharge instructions Follow Up Care 11/30/2021 13:55:25 With:Senthil Caldera Address: [address] [place] [phone] Fax Business (1) When: Unknown Comments:re-start kisqali at 200mg daily x 3 weeks, then 1 week offcmp weekly x 4wksfollow-up with Dr. Hernandez in 4wkscbc, cmp at follow-up [facility]07-14-2022 Hospital Discharge instructions Follow Up Care 11/02/2021 12:27:30 With:Senthil Caldera Address: [address] [phone] Fax Business (1) When: Unknown Comments:cont arimidex. Hold kisquali for 3 wks, recheck cbc, cmp, prior to f/u. hold lasix. Send this note to Dr. Kofi sumner. [facility]06-16-2022 Hospital Discharge instructions Follow Up Care 10/05/2021 14:21:47 With:Senthil Caldera Address: [place] [phone] Fax Business (1) When: Unknown Comments:continue kisqalifollow-up in 1mocbc, cmp at follow-up [facility]05-19-2022 Hospital Discharge instructions Follow Up Care 09/07/2021 13:41:37 With:Senthil Caldera Address: [address] [phone] Fax Business (1) When: Unknown Comments:continue Kisqali follow-up in 1 mocbc, cmp, [id number] at follow-up [facility]05-15-2022 Evaluation + Plan noteExtracted from: [...] Location:FT.ONCOLOGY Appointment Type:ONC Office Visit 15 (FT) [facility]05-15-2022 Hospital Discharge instructions Patient Education [...] instructions at home: Medicines Take and apply civw-qbn-okfhbgv and prescription medicines only as told by [...] what causes your hives. Take and apply senb-rlw-jfyetcw and prescription medicines only as told by your health care provider. Keep all follow-up visits as told by your health care provider. This is important. This information is not intended to replace advice given to you by your health care provider. Make sure you discuss any questions you have with your health care provider. Document Released: 04/08/2006 Document Revised: 10/22/2018 Document Reviewed: 10/22/2018 [employer] Patient Education 2020 [employer]. Follow Up Care 09/03/2021 00:14:38 With:Rickey Askew Address: [address] [place] [phone] Business (1) When:Within 3 Day(s) [facility]04-21-2022 Hospital Discharge instructions Follow Up Care 08/10/2021 13:38:09 With:Nohemi Radha Address: [place] [address]- [phone] Business (1) When: Unknown Comments:f/u 1 monthcont kisquali.cbc, cmp, [id number] at f/u. With:Senthil Caldera Address: [address] [phone] Fax Business (1) When: Unknown [facility]04-05-2022 Hospital Discharge instructions Follow Up Care 07/25/2021 15:46:11 With:Senthil Caldera Address: [place] [phone] Fax Business (1) When: Unknown Comments:f/u in 2 wks, cbc, cmp, [id number] at f/u. [facility]03-22-2022 Hospital Discharge instructions Follow Up Care 07/11/2021 14:05:16 With:Senthil Caldera Address: [place] [phone] Fax Business (1) When: Unknown Comments:echo and port sooni will call Dr. Tabor. f/u with me in 2 wks plan AC. Cbc, cmp, ceapet/ct prior to f/u. [facility] Future Appointments Appointment Date:07/18/2021 12:00:00 PM Scheduled Provider:Senthil Caldera DO Location:FT.ONCOLOGY Appointment Type:ONC Office Visit New 45 (FT) [facility] [place] Evaluation + Plan note Future Appointments Appointment Date:08/08/2021 10:00:00 AM Scheduled Provider: Location:.ULTRASOUND Appointment Type:US Breast (FT) Appointment Date:08/09/2021 10:30:00 AM Scheduled Provider: Location:[facility] Appointment Type:Surgical PAT FT Appointment Date:08/10/2021 12:30:00 PM Scheduled Provider:Senthil Caldera DO [facility] Type:[facility]C Office Visit 15 (FT) Appointment Date:08/17/2021 08:00:00 AM Scheduled Provider: Location:[facility] Appointment Type:Surgery FT Appointment Date:08/22/2021 10:20:00 AM Scheduled Provider:Gavino TABOR MD Location:[facility] Appointment Type: Post Op 15 Future Scheduled Tests Laboratory* CA 27 29 08/09/21 * CBC w/ Auto Diff 08/09/21 * CBC w/ Auto Diff 07/26/21 * CEA 07/26/21 * Comprehensive Metabolic Panel 08/09/21 * Comprehensive Metabolic Panel 07/26/21 Radiology* US Perc Biopsy Lymph Node [facility]08[facility]21 [facility] App[facility]ments Appointment Date:08/10/2021 12:30:00 PM Scheduled Provider:Senthil Caldera DO [facility] Type:ONC Office Visit 15 (FT) Diagnostic Tests Pending * CA 27 29 08/07/21 Future Scheduled Tests Laboratory* CBC w/ Auto Diff 07/26/21 * CEA 07/26/21 * Comprehensive Metabolic Panel 07/26/21 [facility] Appointments Appointment Date:08/10/2021 12:30:00 PM Scheduled Provider:Senthil Caldera DO [facility] Type:ONC Office Visit 15 (FT) Future Scheduled Tests Laboratory* CBC w/ Auto Diff 07/26/21 * CEA 07/26/21 * Comprehensive Metabolic Panel 07/26/21 [facility] Appointments Appointment Date:09/07/2021 12:30:00 PM Scheduled Provider:Senthil Caldera DO Location:.ONCOLOGY Appointment Type:ONC Office Visit 15 (FT) Future Scheduled Tests Laboratory* CBC w/ Auto Diff 08/24/21 * CEA 08/24/21 * Comprehensive Metabolic Panel 08/24/21 [facility] Appointments Appointment Date:08/21/2021 02:00:00 PM Scheduled Provider: [facility] Type:ONC Patient Education - 1hr (FT) Appointment Date:09/07/2021 12:30:00 PM Scheduled Provider:Senthil Caldera DO Location:FT.ONCOLOGY Appointment Type:ONC Office Visit 15 (FT) Future Scheduled Tests Laboratory* CBC w/ Auto Diff 09/07/21 * CEA 09/07/21 * Comprehensive Metabolic Panel 09/07/21 [facility] App[facility]ments Appointment Date:09/07/2021 12:30:00 PM Scheduled Provider:Senthil Caldera DO Location:FT.ONCOLOGY Appointment Type:ONC Office Visit 15 (FT) [facility] Future Appointments Appointment Date:10/05/2021 01:30:00 PM Scheduled Provider:Senthil Caldera DO Location:FT.ONCOLOGY Appointment Type:ONC Office Visit 15 (FT) Future Scheduled Tests Laboratory* CA 27 29 10/08/21 * CBC w/ Auto Diff 10/08/21 * Comprehensive Metabolic Panel 10/08/21 [facility] Appointments Appointment Date:10/05/2021 01:30:00 PM Scheduled Provider:Senthil Caldera DO Location:FT.ONCOLOGY Appointment Type:ONC Office Visit 15 (FT) Diagnostic Tests Pending * CA 27 29 10/02/21 [facility] Future Appointments Appointment Date:11/02/2021 01:45:00 PM Scheduled Provider:Senthil Caldera DO Location:FT.ONCOLOGY Appointment Type:ONC Office Visit 15 (FT) Future Scheduled Tests Laboratory* CA 27 29 11/02/21 * CBC w/ Auto Diff 11/02/21 * Comprehensive Metabolic Panel 11/02/21 [facility] Future Appointments Appointment Date:11/02/2021 11:15:00 AM Scheduled Provider:Nohemi Garland Location:FT.ONCOLOGY Appointment Type:ONC Office Visit 15 (FT) Diagnostic Tests Pending * CA 27 29 11/01/21 [facility] Future Appointments Appointment Date:11/30/2021 01:15:00 PM Scheduled Provider:Senthil Caldera DO Location:FT.ONCOLOGY Appointment Type:ONC Office Visit 15 (FT) Future Scheduled Tests Laboratory* CBC w/ Auto Diff 8/14/22 * Comprehensive Metabolic Panel 12/03/21 [facility] Appointments Appointment Date:11/30/2021 01:15:00 PM Scheduled Provider:Senthil Caldera DO [facility] Type:ONC Office Visit 15 (FT) [facility] Future Appointments Appointment Date:12/21/2021 01:15:00 PM Scheduled Provider:Senthil Caldera DO [facility] Type:ONC Office Visit 15 (FT) Future Scheduled Tests Laboratory* CBC w/ Auto Diff 12/21/21 * Comprehensive Metabolic Panel 12/21/21 [facility] Future Appointments Appointment Date:01/18/2022 02:15:00 PM Scheduled Provider:Senthil Caldera DO [facility] Type:ONC Office Visit 15 (FT) Future [...] Panel 01/18/22 * Comprehensive Metabolic Panel 01/25/22 [facility]ments [...] Panel 01/18/22 * Comprehensive Metabolic Panel 01/25/22 [facility]ments [...] Panel 02/06/22 * Comprehensive Metabolic Panel 02/13/22 [facility] Future Appointments Appointment Date:03/28/2022 02:15:00 PM Scheduled Provider:Senthil Caldera DO Location:FT.ONCOLOGY Appointment Type:ONC Office Visit 15 (FT) Future Scheduled Tests Laboratory* CBC w/ Auto Diff 03/08/22 * CBC w/ Auto Diff 04/05/22 * Comprehensive Metabolic Panel 03/08/22 * Comprehensive Metabolic Panel 04/05/22 [facility] Future Appointments Appointment Date:06/06/2022 01:15:00 PM Scheduled Provider:Senthil Caldera DO Location:FT.ONCOLOGY Appointment Type:ONC Office Visit 15 (FT) [facility] Future Appointments Appointment Date:08/01/2022 02:00:00 PM Scheduled Provider:Senthil Caldera DO Location:FT.ONCOLOGY Appointment Type:ONC Office Visit 15 (FT) Future Scheduled Tests Laboratory* CBC w/ Auto Diff 06/06/22 * Comprehensive Metabolic Panel 06/06/22 [facility] Future Appointments Appointment Date:08/01/2022 02:00:00 PM Scheduled Provider:Senthil Caldera DO Location:FT.ONCOLOGY Appointment Type:ONC Office Visit 15 (FT) Diagnostic Tests Pending * CA 27 29 07/09/22 Future Scheduled Tests Laboratory* CA 27 29 07/31/22 * CBC w/ Auto Diff 07/31/22 * Comprehensive Metabolic Panel 07/31/22 [facility] Future Appointments Appointment Date:08/01/2022 02:00:00 PM Scheduled Provider:Senthil Caldera DO Location:FT.ONCOLOGY Appointment Type:ONC Office Visit 15 (FT) Diagnostic Tests Pending * CA 27 29 07/30/22 [facility]ointments [...] Transferrin 08/29/22 * Vitamin B12 Level 08/29/22 [facility] Future Appointments Appointment Date:09/27/2022 01:45:00 PM Scheduled Provider:Nohemi Garland Location:FT.ONCOLOGY Appointment Type:ONC Office Visit 30 (FT) Diagnostic Tests Pending * CA 27 29 09/25/22 [facility] Future Appointments Appointment Date:11/22/2022 02:15:00 PM Scheduled Provider:Senthil Caldera DO Location:FT.ONCOLOGY Appointment Type:ONC Office Visit 15 (FT) Future Scheduled Tests Laboratory* CA 27 29 10/25/22 * CA 27 29 11/22/22 * CBC w/ Auto Diff 10/25/22 * CBC w/ Auto Diff 11/22/22 * Comprehensive Metabolic Panel 10/25/22 * Comprehensive Metabolic Panel 11/22/22 [facility] Future Appointments Appointment Date:12/26/2022 02:45:00 PM Scheduled Provider:Senthil Caldera DO Location:FT.ONCOLOGY Appointment Type:ONC Office Visit 15 (FT) Future Scheduled Tests Laboratory* CA 27 29 10/25/22 * CA 27 29 11/22/22 * CBC w/ Auto Diff 10/25/22 * CBC w/ Auto Diff 11/22/22 * Comprehensive Metabolic Panel 10/25/22 * Comprehensive Metabolic Panel 11/22/22 [facility] Evaluation + Plan note Future Appointments [...] Panel 04/01/23 * Comprehensive Metabolic Panel 05/02/23 [facility] App[facility]ments Appointment Date:06/12/2023 10:30:00 AM Scheduled Provider:Senthil Caldera DO [facility] Type:ONC Office Visit 30 (FT) Diagnostic [...] Panel 04/01/23 * Comprehensive Metabolic Panel 05/02/23 [facility]ments [...] Transferrin 09/12/23 * Vitamin B12 Level 09/12/23 [facility] assessment information available [facility] Work Phone: Hospital course Narrative No data available for this section [facility] Discharge instructions No data available for this section [facility] [place] Progress note No data available for this section [facility] Summary Purpose Family History No Family History Records Found No data available for this section No data available for this section No data available for this section No Family History Records FoundNo Family History Records Found Advance Directives No Advanced Directives Records Found Advance Directive Response Recorded Date/ Time Advance Directives No May 27, 2023 8:14am Advance Directive Response Recorded Date/ Time Advance Directives No May 27, 2023 9:14am Chief Complaint and Reason for Visit Chief Complaint C50.41 C79.51 Chief Complaint c50.411 c79.51 Additional Source Comments INFORMATION SOURCE (unrecogn ized section and content) DATE CREATED AUTHOR 09/08/2021 [facility] DATE CREATED AUTHOR AUTHOR'S ORGANIZ ATION 06/28/2023 [facility] DATE CREATED AUTHOR AUTHOR'S ORGANIZ ATION 09/01/2023 [facility] Care Team (unrecognized sect ion and content) Director Of Business Services Relationship Specialty Start Date End Date Rickey Askew MD [address] [place] [address] PCP - Devoted 06/20/22 Rickey Askew MD [address] [place] [address] PCP - General Family Medicine 09/19/22 Team Status: Active Member Role Status Dates Mary Rodriguze MD Primary Care Provider Active Team Status: Inactive Member Role Status Dates Senthil Caldera II, DO Attending Provider Active Start: May 31, 2023 End: May 31, 2023 Mary Rodriguez MD Primary Care Provider Active S tart: May 31, 2023 End: May 31, 2023 Team Status: Inactive Member Role Status Dates Mary Rodriguez MD Primary Care Provider Active S tart: August 30, 2023 End: August 30, 2023 Senthil Caldera II, DO Attending Provider Active Start: August 30, 2023 End: August 30, 2023 Goals (unrecognized section and content) Goals [...] BE BASED ON THE PRIMARY CLINICAL RECORDS. [employer] provides no warranty or guarantee of the accuracy or completeness of information in this document.
[2023-09-02 07:48] LABS: Basophils Absolute Auto 0.1 10^3/uL (0.0-0.1); Basophils Percent Auto 2.4 % (0.2-2.0); Eosinophils Absolute Auto 0.2 10^3/uL (0.0-0.7); Eosinophils Percent Auto 4.5 % (0.9-7.0); Hematocrit 31.9 % (36.0-48.0); Immature Granulocytes Abs Auto 0.01 10^3/uL (0.00-0.03); Immature Granulocytes Pct Auto 0.3 % (0.0-0.5); Lymphocytes Absolute Auto 1.4 10^3/uL (1.2-3.8); Lymphocytes Percent Auto 37.3 % (20.5-60.0); Mean Corpuscular HGB Conc 31.3 g/dL (29.9-35.2); Mean Corpuscular Volume 105.3 fL (81.0-99.0); Mean Platelet Volume 9.1 fL (9.5-13.5); Monocytes Absolute Auto 0.3 10^3/uL (0.3-0.8); Monocytes Percent Auto 7.1 % (1.7-12.0); Neutrophils Absolute Auto 1.9 10^3/uL (1.4-6.5); Neutrophils Percent Auto 48.4 % (43.0-75.0); Platelet Count 154 10^3/uL (150-450); Red Blood Count 3.03 10^6/uL (4.20-5.40); Red Cell Distribution Width 14.2 % (11.0-15.0); White Blood Count 3.8 10^3/uL (4.0-11.0)
[2023-09-02 09:12] LABS: Alanine Aminotransferase 14 U/L (14-59); Albumin Globulin Ratio 0.8; Albumin Level 2.8 g/dL (3.4-5.0); Alkaline Phosphatase 124 U/L (46-116); Aspartate Amino Transferase 15 U/L (15-37); BUN Creatinine Ratio 24.7; Bilirubin Total 0.3 mg/dL (0.2-1.0); Calcium 9.2 mg/dL (8.5-10.1); Carbon Dioxide 23.6 mmol/L (21.0-32.0); Chloride 108 mmol/L (98-107); Estimated GFR (African America 42 (>=60); Estimated GFR (Non-African Ame 35 (>=60); Globulin 3.5 g/dL; Glucose 131 mg/dL (74-106); Potassium 4.6 mmol/L (3.5-5.1); Sodium 139 mmol/L (136-145); Total Protein 6.3 g/dL (6.4-8.2)
== END 2023-09-02 00:58 | disposition home or self-care (01) ==
LOC: LAB 00:57
PROVIDERS: PCP Family Medicine; Visit Provider Family Medicine
DX: Z51.81 Encounter for therapeutic drug level monitoring (principal)
CPT/HCPCS: 36415; 80053; 85025; 86300

== ENCOUNTER 2023-10-02 03:31 | Outpatient (REF) | payer OTHER, SELFPAY ==
--- OUTSIDE RECORDS SUMMARY | 2023-10-02 03:35 | XMS_ITS | CCD ---
Author Organization [facility] ion [facility] Care Team Providers Care Heel Slugger Name Role Phone Rickey Askew Primary Care Physician Eva Beard Unavailable Unavailable Rickey Askew MD Unavailable [phone] Rickey Askew MD Primary Care Provider [phone] DO Senthil Caldera II Attending Provider MD Mary Rodriguez Primary Care Provider MD Mary Rodriguez Primary Care Provider [phone] DO Senthil Caldera II Attending Provider Senthil Caldera II Attending UnavailMary Billingsley Primary Care Unavailable Senthil Caldera II Admitting Unavaila Mary Us Primary Care Unavailable Senthil Caldera II Admitting Unavaila Senthil Ring II Attending Unavailjonna Slater [facility]orie Moreland Attending UnavailSammy Orosco Attending Unavailable Sammy QUEZADA Attending Unavailable Senthil Caldera Admitting Unavailable Senthil Caldera Attending Unavailable Zaheer Sloan Admitting Unavailable Zaheer Sloan Attending Unavailable Wyatt Murray Attending Unavailable Gavino Lugo Consulting Unavailable DO Mariia LOPEZ Admitting UnavailGavino Wilkins Consulting Unavailable Lugo, Gavino T Consulting Unavailable Lugo, Gavino T Consulting Unavailable Lugo, Gavino T Consulting Unavailable Lugo, Gavino T Consulting Unavailable Lugo, Gavino T Consulting Unavailable Lugo, Gavino T Consulting Unavailable Lugo, Gavino T Consulting Unavailable Lugo, Gavino T Consulting Unavailable Lugo, Gavino T Consulting Unavailable Lugo, Gavino T Consulting Unavailable Jeffery Murphy Attending Unavailable David Tong Attending Unavailable Verenice, Senthil Attending Unavailable Radha, Nohemi Gerard Attending Unavailable Verenice, Senthil Attending Unavailable Verenice, Senthil Admitting Unavailable Verenice, Senthil Attending Unavailable Verenice, Senthil Attending Unavailable Sammy QUEZADA Attending Unavailable Verenice, Senthil Attending Unavailable Allergies Allergy Classification Reported Allergen(s) Allergy Type Date of Onset Reaction(s) Facility (20 sources) Bee/Wasp/Ant venom; Translations: [Bee Stings] Drug allergy Dyspnea (finding) [facility] (20 sources) Penicillins; Translations: [penicillins] Drug allergy 2 Dyspnea (finding), Shortness of breath, Unknown [facility] (20 sources) Sulfonamides (Antibiotic); Translations: [sulfa drugs] Drug allergy Dyspnea (finding) [facility] (3 sources) Penicillin G Drug Allergy 2 [facility] (3 sources) Sulfonamides (Antibiotic) Drug Allergy 3 Shortness of breath [facility] Medications Current Medications Medication Drug Class(es) Dates Sig (Normalized) Sig (Original) acetaminophen 500 mg oral tablet (9 sources) Start: 11-13-2022 take 2 tablets by [...] Ordered busPIRone hydrochloride 5 mg oral tablet (3 sources) Start: 05-01-2023 take 1 tablet by [...] day(s), # 28 cap(s), Refills(s) 0, Pharmacy: [facility], 167.6, cm, 12/19/22 20:43:00 EDT, Height/Length [...] Ordered docusate sodium 100 mg oral tablet (3 sources) Start: 05-01-2023 take 100 mg by mouth twice daily Colace 100 mg, Oral, BID, Refills(s) 0 Start Date: 05/01/23 Status: Ordered exemestane 25 mg oral tablet (1 source) Aromatase Inhibitor Start: 06-13-2023 take 1 tablet by mouth once daily exemestane 25 mg Tab 25 mg = 1 tab(s), Oral, Daily, # 30 tab(s), Refills(s) 11, Pharmacy: [facility], 167.6, cm, 06/12/23 11:02:00 EST, Height/Length Dosing, 90.7, kg, 06/12/23 11:02:00 EST, Weight Dosing Start Date: 06/13/23 Status: Ordered Fish Oils (20 sources) Start: [...] 0 Start Date: 09/07/21 Status: Ordered Claritin (3 sources) Start: 05-01-2023 Claritin 10 mg, Refills(s) 0 Start Date: 05/01/23 Status: Ordered melatonin 5 mg oral tablet (9 sources) Start: 11-13-2022 take 1 tablet by [...] Nausea, # 30 tab(s), Refills(s) 3, Pharmacy: [facility], 162.5, cm, 08/10/21 12:38:00 EDT, Height/Length [...] for severe pain. 0 12/17/2022 Active Miralax (3 sources) Osmotic Laxative Start: 05-01-2023 take 17 [...] day(s), # 42 tab(s), Refills(s) 12, [id number], 167.6, cm, 05/01/23 14:05:00 EST, Height/Length Dosing, [...] Ordered traMADol hydrochloride 50 mg oral tablet (3 sources) Opioid Agonist Start: 05-01-2023 take 50 [...] 09/27/2022 Active Vitamin B12 1000 mcg Tab (12 sources) Start: 09-27-2022 take 1 tablet by mouth once daily Vitamin B12 1000 mcg Tab 1,000 mcg = 1 tab(s), Oral, Daily, # 30 tab(s), Refills(s) 11, Pharmacy: [email or web address], 162, cm, 09/08/22 15:14:00 EDT, Height/Length Dosing, 96.4, kg, 09/27/22 13:43:00 EDT, Weight Dosing Start Date: 09/27/22 Status: Ordered Vitamin D3 2000 intl units oral tablet (9 sources) Start: 12-14-2022 take 1 tablet by mouth once daily Vitamin D3 2000 intl units oral tablet 50 mcg = 1 tab(s), Oral, Daily, # 90 tab(s), Refills(s) 4, Pharmacy: [facility], 167, cm, 11/01/22 20:02:00 EDT, Height/Length [...] daily, # 7 cap(s), Refills(s) 0, Pharmacy: [facility], 167, cm, 11/01/22 20:02:00 EDT, Height/Length Dosing, 90.3, kg, 11/01/22 20:02:00 EDT, Weight Dosing Start Date: 11/04/22 Status: Ordered Start: 11-04-2022 ergocalciferol 50,000 intl units Cap 50,000 International_Unit = 1 cap(s), Oral, q7day, # 7 cap(s), Refills(s) 0, Pharmacy: [facility], 167, cm, 11/01/22 20:02:00 EDT, Height/Length [...] breast] Onset: 07-11-2021 Chronic Cancer of breast (13 sources) Personal history of malignant neoplasm of breast; Translations: [History of malignant neoplasm of breast] Onset: 11-02-2022 Episodic Cancer of colon (4 sources) Malignant tumor of colon; Translations: [Malignant neoplasm of colon, unspecified] Onset: 10-24-2022 Chronic Deficiency and other anemia (1 source) Anemia; Translations: [Anemia, unspecified] Onset: 12-19-2022 Episodic Delirium, dementia, and amnestic and other cognitive disorders (11 sources) Age-related cognitive decline; Translations: [Age-related cognitive [...] Translations: [Weakness] Onset: 11-02-2022 Episodic Nutritional deficiencies (12 sources) Vitamin D deficiency; Translations: [Vitamin D deficiency, unspecified] Onset: 11-06-2022 Chronic Other aftercare (1 source) Long-term current use of drug therapy; Translations: [Other long-term (current) drug therapy] Onset: 11-02-2022 Episodic Other connective tissue disease (2 sources) Recurrent falls ; Translations: [Repeated falls] Onset: 11-02-2022 Episodic Other fractures (10 sources) Multiple pelvic fractures; Translations: [Multiple fractures [...] unspecified] Onset: 10-24-2022 10-24-2022 Chronic Pathological fracture (12 sources) H/O: fragility fracture; Translations: [Personal history [...] Value Interpretation Reference Range Facility Physician Orderon 09-30-2023 Physician Order [id number] Normal [facility] CA 27 29on 09-13-2023 Cancer Ag - Qn 20.1 unit/mL Invalid Interpretation Code 0.0-38.6 [facility] Comment on above: Result Comment: Siem [facility] Centaur Immunochemiluminometric Methodology (ICMA) Values obtained with different assay methods or kits cannot be used interchangeably. Results cannot be interpreted as absolute evidence of the presence or absence of malignant disease. Performed at: [facility] [address], [place] [id number] PhD [place] Avelar Performed By: #### 1 [id number] #### [facility] [address] [place] [address] Erythropoiet Lvlon 4 Erythropoietin (EPO) Qn 16.8 mIU/mL Invalid Interpretation Code 2.6-18.5 [facility] Comment on above: Result Comment: [employer] DxI 800 Immunoassay System Values obtained with different assay methods or kits cannot be used interchangeably. Results cannot be interpreted as absolute evidence of the presence or absence of malignant disease. Performed at: [facility] [address], [place] [id number] PhD [place] Avelar Performed By: #### 1 [id number] #### [facility] [address] [place] [address] Outside Radiologyon 09-13-19 24 Outside Radiology [id number] Normal [facility] CBC w/ Auto Diffon 4 Basophils/100 WBC (Bld) 1.1 % Normal 0.0-2.0 [facility] Comment on above: Performed By: #### 2 [id number] #### [facility] [address] [place] [address] Basophils/Leukocytes Auto (Bld) [Pure # fraction] 0.0 E9/L Normal 0.0-0.2 [facility] Comment on above: Performed By: #### 2 [id number] #### [facility] [address] [place] [address] Eosinophils (Bld) [#/Vol] 0.2 E9/L Normal 0.0-0.5 [facility] Comment on above: Performed By: #### 2 [id number] #### [facility] [address] [place] [address] Eosinophils/100 WBC (Bld) 4.3 % Normal 0.0-8.0 [facility] Comment on above: Performed By: #### 2 [id number] #### [facility] [address] [place] [address] Erythrocyte distribution width (RBC) [Ratio] 14.6 % High 10.9-14.2 [facility] Comment on above: Performed By: #### 2 [id number] #### [facility] [address] [place] [address] Hematocrit (Bld) [Volume fraction] 35.9 % Normal 34.0-46.0 [facility] Comment on above: Performed By: #### 2 [id number] #### [facility] [address] [place] [address] Hemoglobin (Bld) [Mass/Vol] 11.7 g/dL Low 12.0-16.0 [facility] Comment on above: Performed By: #### 2 [id number] #### [facility] [address] [place] [address] Lymphocytes (Bld) [#/Vol] 1.3 E9/L Normal 1.0-4.0 [facility] Comment on above: Performed By: #### 2 [id number] #### [facility] [address] [place] [address] Lymphocytes/100 WBC (Bld) 29.3 % Normal 14.0-50.0 [facility] Comment on above: Performed By: #### 2 [id number] #### [facility] [address] [place] [address] MCH (RBC) [Entitic mass] 33.9 pg Normal 27.0-34.0 [facility] Comment on above: Performed By: #### 2 [id number] #### [facility] [address] [place] [address] MCHC (RBC) [Mass/Vol] 32.7 g/dL Normal 31.4-36.0 [facility] Comment on above: Performed By: #### 2 [id number] #### [facility] [address] [place] [address] [place] [address] MCV (RBC) [Entitic vol] 103.7 fL High 80.0-100.0 [facility] Comment on above: Performed By: #### 2 [id number] #### [facility] [address] [place] [address] Monocytes (Bld) [#/Vol] 0.2 E9/L Normal 0.2-1.0 [facility] Comment on above: Performed By: #### 2 [id number] #### [facility] [address] [place] [address] Neutrophils (Bld) [#/Vol] 2.7 E9/L Normal 2.0-7.5 [facility] Comment on above: Performed By: #### 2 [id number] #### [facility] [address] [place] [address] Neutrophils/100 WBC (Bld) 60.4 % Normal 36.0-75.0 [facility] Comment on above: Performed By: #### 2 [id number] #### [facility] [address] [place] [address] Platelet mean volume (Bld) [Entitic vol] 6.8 fL Normal 6.4-10.8 [facility] Comment on above: Performed By: #### 2 [id number] #### [facility] [address] [place] [address] Platelets (Bld) [#/Vol] 245.0 E9/L Normal 150. 0-500. 0 [facility] Comment on above: Performed By: #### 2 [id number] #### [facility] [address] [place] [address] RBC (Bld) [#/Vol] 3.5 E12/L Low 4.3-5.9 [facility] Comment on above: Performed By: #### 2 [id number] #### [facility] [address] [place] [address] WBC corrected for nucl RBC Auto (Bld) [#/Vol] 4.5 E9/L Normal 4.0-11.0 [facility] Comment on above: Performed By: #### 2 [id number] #### [facility] [address] [place] [address] CHEMISTRYOrdered By: SYSTEM SYSTEM on 09-12-2023 Albumin [Mass/Vol] 3.8 g/dL Normal 3.3 - 5.0 gm/dL [facility] Albumin/Globulin [Mass ratio] 1.2 {ratio} Normal 1.1 - 2.2 [facility] ALP [Catalytic activity/Vol] 119 [iU]/d High 21 - 98 Int._Unit/ L [facility] ALT No additional P-5'-P [Catalytic activity/Vol] 11 [iU]/d Normal 6 - 46 Int._Unit/ L [facility] Anion gap [Moles/Vol] 13 mmol/L Normal 6 - 16 mEq/L [facility] AST [Catalytic activity/Vol] 12 [iU]/d Normal 5 - 43 Int._Unit/ L [facility] Bilirubin [Mass/Vol] 0.3 mg/dL Normal 0.0 - 1 .1 mg/dL [facility] Calcium [Mass/Vol] 9.1 mg/dL Normal 8.9 - 11. 1 mg/dL [facility] Chloride [Moles/Vol] 111 mmol/L Normal 101 - 1 11 mmol/L [facility] CO2 [Moles/Vol] 22 mmol/L Normal 21 - 31 mmol/L [facility] Cobalamin (Vitamin B12) [Mass/Vol] 524 pg/mL Normal 50 - 1500 pg/mL [facility] Creatinine [Mass/Vol] 1.9 mg/dL High 0.5 - 1.3 mg/dL [facility] eGFR 27 mL/min/1.73 m2 Low >=59mL/min /1.73 m2 [facility] Ferritin [Mass/Vol] 193 ng/mL Normal 11 - 307 ng/mL [facility] Folate [Mass/Vol] ng/mL Normal >=6.7ng/mL [facility] Globulin (S) [Mass/Vol] 3.1 g/dL Normal 1.4 - 4.0 gm/dL [facility] Glucose [Mass/Vol] 197 mg/dL Normal 55 - 199 mg/dL [facility] Iron [Mass/Vol] 81 ug/dL Normal 35 - 153 mcg/dL [facility] Iron binding capacity [Mass/Vol] 277 ug/dL Normal 250 - 400 mcg/dL [facility] Iron saturation [Mass fraction] 29 % Normal 20 - 50 % [facility] Potassium [Moles/Vol] 4.8 mmol/L Normal 3.5 - 5.3 mmol/L [facility] Protein [Mass/Vol] 6.9 g/dL Normal 6.0 - 7.8 gm/dL [facility] Sodium [Moles/Vol] 141 mmol/L Normal 135 - 145 mmol/L [facility] Transferrin [Mass/Vol] 198 mg/dL Low 200 - 370 mg/dL [facility] Urea nitrogen [Mass/Vol] 44 mg/dL High 5 - 21 mg/dL [facility] Urea nitrogen/Creatinine [Mass ratio] 23 mg/mg High 10 - 20 [facility] CMPon 09-12-2023 Albumin [Mass/Vol] 3.8 g/dL Normal 3.3-5.0 [facility] Comment on above: Performed By: #### 2 [id number] #### [facility] [address] [place] [address] Albumin/Globulin (S) [Mass conc ratio] 1.2 Normal 1.1-2.2 [facility] Comment on above: Performed By: #### 2 [id number] #### [facility] [address] [place] [address] ALP [Catalytic activity/Vol] 119 Int._Unit/L High 21-98 [facility] Comment on above: Performed By: #### 2 [id number] #### [facility] [address] [place] [address] ALT No additional P-5'-P [Catalytic activity/Vol] 11 Int._Unit/L Normal 6-46 [facility] Comment on above: Performed By: #### 2 [id number] #### [facility] [address] [place] [address] Anion gap [Moles/Vol] 13 mmol/L Normal 6-16 [facility] Comment on above: Performed By: #### 2 [id number] #### [facility] [address] [place] [address] AST [Catalytic activity/Vol] 12 Int._Unit/L Normal 5-43 [facility] Comment on above: Performed By: #### 2 [id number] #### [facility] [address] [place] [address] Bilirubin [Mass/Vol] 0.3 mg/dL Normal 0.0-1.1 [facility] Comment on above: Performed By: #### 2 [id number] #### [facility] [address] [place] [address] Calcium [Mass/Vol] 9.1 mg/dL Normal 8.9-11.1 [facility] Comment on above: Performed By: #### 2 [id number] #### [facility] [address] [place] [address] Chloride [Moles/Vol] 111 mmol/L Normal 101-111 [facility] Comment on above: Performed By: #### 2 [id number] #### [facility] [address] [place] [address] CO2 [Moles/Vol] 22 mmol/L Normal 21-31 [facility] Comment on above: Performed By: #### 2 555515 #### [facility] [address] [place] [address] Creatinine [Mass/Vol] 1.9 mg/dL High 0.5-1.3 [facility] Comment on above: Performed By: #### 2 [id number] #### [facility] [address] [place] [address] Globulin (S) [Mass/Vol] 3.1 g/dL Normal 1.4-4.0 [facility] Comment on above: Performed By: #### 2 [id number] #### [facility] [address] [place] [address] Glucose [Mass/Vol] 197 mg/dL Normal 55-199 [facility] Comment on above: Performed By: #### 2 [id number] #### [facility] [address] [place] [address] Potassium [Moles/Vol] 4.8 mmol/L Normal 3.5-5.3 [facility] Comment on above: Performed By: #### 2 [id number] #### [facility] [address] [place] [address] Protein [Mass/Vol] 6.9 g/dL Normal 6.0-7.8 [facility] Comment on above: Performed By: #### 2 [id number] #### [facility] [address] [place] [address] Sodium [Moles/Vol] 141 mmol/L Normal 135-145 [facility] Comment on above: Performed By: #### 2 [id number] #### [facility] [address] [place] [address] Urea nitrogen [Mass/Vol] 44 mg/dL High 5-21 [facility] Comment on above: Performed By: #### 2 533652 #### [facility] [address] [place] [address] Urea nitrogen/Creatinine [Mass ratio] 23 No Units High 10-20 [facility] Comment on above: Performed By: #### 2 [id number] #### [facility] [address] [place] [address] Consent for Treatmenton 08-21 Consent for Treatment [id number] Normal [facility] Ferritinon 09-12-2023 Ferritin [Mass/Vol] 193 ng/mL Normal 11-307 [facility] Comment on above: Performed By: #### 2 [id number] #### [facility] [address] [place] [address] Folateon 09-12-2023 Folate [Mass/Vol] ng/mL Normal >=6.7 [facility] Comment on above: Performed By: #### 2 [id number] #### [facility] [address] [place] [address] HEMATOLOGYOrdered By: SYSTEM SYSTEM on 09-12-2023 Basophils/100 WBC (Bld) 1.1 % Normal 0.0 - 2.0 % [facility] Basophils/Leukocytes Auto (Bld) [Pure # fraction] 0.0 E9/L Normal 0.0 - 0.2 E9/L [facility] Eosinophils (Bld) [#/Vol] 0.2 E9/L Normal 0.0 - 0.5 E9/L [facility] Eosinophils/100 WBC (Bld) 4.3 % Normal 0.0 - 8.0 % [facility] Erythrocyte distribution width (RBC) [Ratio] 14.6 % High 10.9 - 14.2 % [facility] Hematocrit (Bld) [Volume fraction] 35.9 % Normal 34.0 - 46.0 % [facility] Hemoglobin (Bld) [Mass/Vol] 11.7 g/dL Low 12.0 - 16.0 gm/dL [facility] Lymphocytes (Bld) [#/Vol] 1.3 E9/L Normal 1.0 - 4.0 E9/L [facility] Lymphocytes/100 WBC (Bld) 29.3 % Normal 14.0 - 50.0 % [facility] MCH (RBC) [Entitic mass] 33.9 pg Normal 27.0 - 34.0 pg [facility] MCHC (RBC) [Mass/Vol] 32.7 g/dL Normal 31.4 - 36.0 gm/dL [facility] MCV (RBC) [Entitic vol] 103.7 fL High 80.0 - 100.0 fL [facility] Monocytes (Bld) [#/Vol] 0.2 E9/L Normal 0.2 - 1.0 E9/L [facility] Monocytes/100 WBC (Bld) 4.9 % Normal 4.0 - 14.0 % [facility] Neutrophils (Bld) [#/Vol] 2.7 E9/L Normal 2.0 - 7.5 E9/L [facility] Neutrophils/100 WBC (Bld) 60.4 % Normal 36.0 - 75.0 % [facility] Platelet mean volume (Bld) [Entitic vol] 6.8 fL Normal 6.4 - 10.8 fL [facility] Platelets (Bld) [#/Vol] 245.0 E9/L Normal 150. 0 - 500.0 E9/L [facility] RBC (Bld) [#/Vol] 3.5 E12/L Low 4.3 - 5.9 E12/L [facility] WBC corrected for nucl RBC Auto (Bld) [#/Vol] 4.5 E9/L Normal 4.0 - 11.0 E9/L [facility] Ironon 09-12-2023 Iron [Mass/Vol] 81 microgram/dL Normal 35-153 [facility] Comment on above: Performed By: #### 2 [id number] #### [facility] [address] [place] [address] Iron Saturationon 09-12-2023 Iron binding capacity [Mass/Vol] 277 microgram/dL Normal 250-400 [facility] Comment on above: Performed By: #### 2 [id number] #### [facility] [address] [place] [address] Iron saturation [Mass fraction] 29 % Normal 20-50 [facility] Comment on above: Performed By: #### 2 [id number] #### [facility] [address] [place] [address] Oncology Progress Noteon Oncology Progress Note Chief Complaint Follow up on Breast cancer, patient has no questions or concerns. Diagnoses Breast CA, (C50.919: Malignant neoplasm of unspecified site of unspecified female breast)Breast cancer Ordered: CBC w/ Auto Diff Comprehensive Metabolic Panel eGFR Iron Level Iron Percent Saturation Transferrin Oncological History/ROS/PE/Assessment and Plan 71-year-old female referred for breast cancer. Initially presented to Dr. Askew with a category 5 mammogram of the right breast. She notes a palpable lump for greater than 1 year although she did not think this had changed in size. She also has medical history includes hypertension, hypercholesterolemia. She does not smoke. Her family history is unknown as she was adopted. Outpatient medications include furosemide, lisinopril, simvastatin, fish oil. Noted by Dr. Tabor to have palpable axillary adenopathy as well. A mammogram from 06/29/2021 diagnostic bilateral notes 4.2 cm mass in the right upper outer quadrant also with abnormal right axillary adenopathy. 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 She was multiple biopsy fragments 1.5 cm in length. ER greater than 95, MO greater than 95. Her2 1+ (this is negative) PETCT showed large breast mass, multiple large axillary masses. A glenoid hypermetabolic lesion R side and a mid thoracic vertebral body area of FDG uptake. 08/10/21 She has been on arimidex for two weeks. Kisquali has been ordered. no new complaints. 09/07/21 She is taking the kisquali for 3wks now. She had an outbreak of a rash from a mower blowing grass on her. She got benadryl from her pcp and was concerned about interactions. 10/05/21 continues to take kisqali 3 pills/day and anastrozole 1 daily, doing well on these is doing well without n/v/d/c, sob, chest pain or other complaints. energy is good labs reviewed, creatinine up a bit to 1.4, bilirubin 1.2, alk phos 135. Remaining labs stable is losing weight, states she isn't eating as much as she did (cut down on snacking and other bad habits with overeating) 11/02/21 is doing well overall, denies any complaints labs stable, creat 1.5, bili normalized continues to eat healthier 11/30/21 she had PET/CT from 11/25/21. IMPRESSION: INTERVAL IMPROVEMENT, WITH DECREASE IN SIZE AND DECREASE IN UPTAKE OF ACTIVITY BY THE PREVIOUSLY NOTED RIGHT BREAST MASS AND RIGHT AXILLARY LYMPH NODES. PREVIOUSLY SUSPECTED BONE METASTASES OF THE RIGHT GLENOID PROCESS AND L4 VERTEBRAL BODY NO LONGER DEMONSTRATE INCREASED UPTAKE. no side effects of treatment her creatinine elevated. She has no explanation for this. she has been trying to drink more water. restarted 3wks on kisquali 11/15. tolerating arimidex. 12/21/21 she feels more tired since she's been off of the kisqali denies shortness of breath or chest pain no n/v/d/c doing well overall labs are improved after holding kisqali for 3wks, creatinine now WNL 01/18/22 she is doing very well on the 200mg kisqali is on her off week, will start again on 01/22 energy is good, denies shortness of breath denies n/v/d/c labs stable, creatinine recovered 03/28/22 she is doing well overall recent PET/CT notes IMPRESSION: IRREGULAR RIGHT BREAST MASS, WITH SOME APPARENT INCREASE IN SIZE, BUT WITH DECREASE IN SUV VALUE WHEN COMPARED TO THE PRIOR STUDY. SMALL RIGHT AXILLARY LYMPH NODES AND THE LARGEST APPEARS SLIGHTLY SMALLER, BUT WITH GREATER SUV VALUE. SMALL FOCAL AREA OF UPTAKE OF ACTIVITY SPINOUS PROCESS L4, OF UNCLEAR SIGNIFICANCE, BUT WITH SMALL BONE METASTASIS NOT EXCLUDED. She is on a dose reduction of the kisquali. 06/06/22 she is doing well, she has no new complaints. 08/01/22 She fell the other day and hurt her tailbone. This was about a week ago. she had pet/ct shortly after. She had pet/ct 07/25/22 notes smaller breast mass. No metastatic disease. 09/27/22 she is doing well overall, has no new complaints her tailbone is still bothering her from her previous fall she is looking for a cleaning lady currently to help her out at home. She continues to care for her and is struggling with keeping up on chores still taking her Kisqali labs stable overall, her B12 was low and she would like to start b12 pills vs. injections 01/30/23 she spent some time in [facility] maybe last month. They didnt have a bed afer her last hospitalization (for uti) a few weeks ago and so upon discharge went to [facility]. Her friends are concerned she will not be safe if she goes home. she seems to have a bad memory. her is also in [facility] continues [facility], despite our meticulous calender she seems to have trouble remembering to taek this when she was at home. She insists she is getting better and wants to go home. 05/01/23 she is in [facility]. she is convinced she will be able to be independent again. She is not walking even with a walker. [facility] anemi (more content not included)... Normal [facility] Physician Orderon 09-12-2023 Physician Order [id number] Normal [facility] Physician Order [id number] Normal [facility] Physician Order [id number] Normal [facility] Transferrinon 09-12-2023 Transferrin [Mass/Vol] 198 mg/dL Low 200-370 [facility] Comment on above: Performed By: #### [id number] #### [facility] [address] [place] [address] Vit B12on 09-12-2023 Cobalamin (Vitamin B12) [Mass/Vol] 524 pg/mL Normal 50-1500 [facility] Comment on above: Performed By: #### [id number] #### [facility] [address] [place] [address] eGFRon 09-12-2023 eGFR 27 mL/min/1.73 m2 Low >=59 [facility] Comment on above: Order Comment: Order added by Discern Expert. Performed By: #### 1 [id number] #### [facility] [address] [place] [address] Lab Reportson 09-09-2023 Lab Reports [id number] Normal [facility] Glucose Glucometer (BldC) [M ass/Vol]Ordered By: Senthil Caldera on 08-30-2023 Glucose [Mass/Vol] 127 mg/dL [facility] Comment on above: Random Glucose Refer ence Range is dependent on time and content of last meal. Glucose of more than 200 mg/dL in a nonstressed, ambulatory subject supports the diagnosis of Diabetes Mellitus. Glucose Poct Glucometerson 0 08-30-2023 Glucose [Mass/Vol] 127 mg/dL Normal [facility] Comment on above: Result Comment: [place] Glucose Reference Range is dependent on time and content of last meal. Glucose of more than 200 mg/dL in a nonstressed, ambulatory subject supports the diagnosis of Diabetes Mellitus. PERFORMED BY: [facility] [address] [place] [id number] PATHOLOGIST DIRECTOR OF ROTC JERICA JO M.D. Performed By: #### G LUALEXANDER #### Point of Care testing , PET tumor subq tx strat sb-m ton 08-30-2023 PET tumor subq tx strat sb-mt [facility] [place] [address] [place], [place] [id number] Nuclear Medicine Report Signed Patient: Marlen Staley MR#: [id number] 65 : 1950 Acct:[id number] Age/Sex: 73 / F ADM Date: 08/30/23 Loc: Room: Type: [facility] Attending Dr: Senthil Caldera II DO Copies to: Senthil Caldera II, DO Ward, Jeffrey S DO Ordering Provider: [...] cavity is present. Although distribution may be associate financial representative of asymmetric physiologic uptake, if there [...] the li (more content not included)... Normal [facility] Physician Orderon 06-27-2023 Physician Order [id number] Normal [facility] Consent for Treatmenton 05-24 Consent for Treatment [id number] Normal [facility] ED Pat Eduon 06-12-2023 ED Pat Edu Caregiving Fall Prevention in the Home, Adult Falls can cause injuries and can happen to people of all ages. There are many things you can do to make your home safe and to help prevent falls. Ask for help when making these changes. What actions can I take to prevent falls? General Instructions ? Use good lighting in all rooms. Replace any light bulbs that burn out. ? Turn on the lights in dark areas. Use night-lights. ? Keep items that you use often in [id number]-za-[id number] places. Lower the shelves around your home if needed. ? Set up your furniture so you have a clear path. Avoid moving your furniture around. ? Do not have throw rugs or other things on the floor that can make you trip. ? Avoid walking on wet floors. ? If any of your floors are uneven, fix them. ? Add color or contrast paint or tape to clearly sintia and help you see: ? Grab bars or handrails. ? First and last steps of staircases. ? Where the edge of each step is. ? If you use a stepladder: ? Make sure that it is fully opened. Do not climb a closed stepladder. ? Make sure the sides of the stepladder are locked in place. ? Ask someone to hold the stepladder while you use it. ? Know where your pets are when moving through your home. What can I do in the bathroom? ? Keep the floor dry. Clean up any water on the floor right away. ? Remove soap buildup in the tub or shower. ? Use nonskid mats or decals on the floor of the tub or shower. ? Attach bath mats securely with double-sided, nonslip rug tape. ? If you need to sit down in the shower, use a plastic, nonslip stool. ? Install grab bars by the toilet and in the tub and shower. Do not use towel bars as grab bars. What can I do in the bedroom? ? Make sure that you have a light by your bed that is easy to reach. ? Do not use any sheets or blankets for your bed that hang to the floor. ? Have a firm chair with side arms that you can use for support when you get dressed. What can I do in the kitchen? ? Clean up any spills right away. ? If you need to reach something above you, use a step stool with a grab bar. ? Keep electrical cords out of the way. ? Do not use floor chadian or wax that makes floors slippery. What can I do with my stairs? ? Do not leave any items on the stairs. ? Make sure that you have a light switch at the top and the bottom of the stairs. ? Make sure that there are handrails on both sides of the stairs. Fix handrails that are broken or loose. ? Install nonslip stair treads on all your stairs. ? Avoid having throw rugs at the top or bottom of the stairs. ? Choose a carpet that does not hide the edge of the steps on the stairs. ? Check carpeting to make sure that it is firmly attached to the stairs. Fix carpet that is loose or worn. What can I do on the outside of my home? ? Use bright outdoor lighting. ? Fix the edges of walkways and driveways and fix any cracks. ? Remove anything that might make you trip as you walk through a door, such as a raised step or threshold. ? Trim any bushes or trees on paths to your home. ? Check to see if handrails are loose or broken and that both sides of all steps have handrails. ? Install guardrails along the edges of any raised decks and porches. ? Clear paths of anything that can make you trip, such as tools or rocks. ? Have leaves, snow, or ice cleared regularly. ? Use sand or salt on paths during winter. ? Clean up any spills in your garage right away. This includes grease or oil spills. What other actions can I take? ? Wear shoes that: ? Have a low heel. Do not wear high heels. ? Have rubber bottoms. ? Feel good on your feet and fit well. ? Are closed at the toe. Do not wear open-toe sandals. ? Use tools that help you move around if needed. These include: ? Canes. ? Walkers. ? Scooters. ? Crutches. ? Review your medicines with your doctor. Some medicines can make you feel dizzy. This can increase your chance of falling. Ask your doctor what else you can do to help prevent falls. Where to find more information ? Centers for Disease Control and Prevention, [place]: www.cdc.gov ? National [place] on Aging: www.derrick.nih.gov Contact a doctor if: ? You are afraid of falling at home. ? You feel weak, drowsy, or dizzy at home. ? You fall at home. Summary ? There are many simple things that you can do to make your home safe and to help prevent falls. ? Ways to make your home safe include removing things that can make you trip and installing grab bars in the bathroom. ? Ask for help when making these changes in your home. This information is not intended to replace advice given to you by your health care provider. Make sure you discuss any questions you have with your health care provider. Document Revised: 01/08/2022 Document Reviewed: 11/09/2020 [employer] Patient Education ? 2022 [employer]. Nutrition High-Protein and H (more content not included)... Normal [facility] ED [facility] Caregiving Fall Prevention in the Home, Adult Falls can cause injuries and can happen to people of all ages. There are many things you can do to make your home safe and to help prevent falls. Ask for help when making these changes. What actions can I take to prevent falls? General Instructions ? Use good lighting in all rooms. Replace any light bulbs that burn out. ? Turn on the lights in dark areas. Use night-lights. ? Keep items that you use often in pcrh-ks-odrdb places. Lower the shelves around your home if needed. ? Set up your furniture so you have a clear path. Avoid moving your furniture around. ? Do not have throw rugs or other things on the floor that can make you trip. ? Avoid walking on wet floors. ? If any of your floors are uneven, fix them. ? Add color or contrast paint or tape to clearly sintia and help you see: ? Grab bars or handrails. ? First and last steps of staircases. ? Where the edge of each step is. ? If you use a stepladder: ? Make sure that it is fully opened. Do not climb a closed stepladder. ? Make sure the sides of the stepladder are locked in place. ? Ask someone to hold the stepladder while you use it. ? Know where your pets are when moving through your home. What can I do in the bathroom? ? Keep the floor dry. Clean up any water on the floor right away. ? Remove soap buildup in the tub or shower. ? Use nonskid mats or decals on the floor of the tub or shower. ? Attach bath mats securely with double-sided, nonslip rug tape. ? If you need to sit down in the shower, use a plastic, nonslip stool. ? Install grab bars by the toilet and in the tub and shower. Do not use towel bars as grab bars. What can I do in the bedroom? ? Make sure that you have a light by your bed that is easy to reach. ? Do not use any sheets or blankets for your bed that hang to the floor. ? Have a firm chair with side arms that you can use for support when you get dressed. What can I do in the kitchen? ? Clean up any spills right away. ? If you need to reach something above you, use a step stool with a grab bar. ? Keep electrical cords out of the way. ? Do not use floor chadian or wax that makes floors slippery. What can I do with my stairs? ? Do not leave any items on the stairs. ? Make sure that you have a light switch at the top and the bottom of the stairs. ? Make sure that there are handrails on both sides of the stairs. Fix handrails that are broken or loose. ? Install nonslip stair treads on all your stairs. ? Avoid having throw rugs at the top or bottom of the stairs. ? Choose a carpet that does not hide the edge of the steps on the stairs. ? Check carpeting to make sure that it is firmly attached to the stairs. Fix carpet that is loose or worn. What can I do on the outside of my home? ? Use bright outdoor lighting. ? Fix the edges of walkways and driveways and fix any cracks. ? Remove anything that might make you trip as you walk through a door, such as a raised step or threshold. ? Trim any bushes or trees on paths to your home. ? Check to see if handrails are loose or broken and that both sides of all steps have handrails. ? Install guardrails along the edges of any raised decks and porches. ? Clear paths of anything that can make you trip, such as tools or rocks. ? Have leaves, snow, or ice cleared regularly. ? Use sand or salt on paths during winter. ? Clean up any spills in your garage right away. This includes grease or oil spills. What other actions can I take? ? Wear shoes that: ? Have a low heel. Do not wear high heels. ? Have rubber bottoms. ? Feel good on your feet and fit well. ? Are closed at the toe. Do not wear open-toe sandals. ? Use tools that help you move around if needed. These include: ? Canes. ? Walkers. ? Scooters. ? Crutches. ? Review your medicines with your doctor. Some medicines can make you feel dizzy. This can increase your chance of falling. Ask your doctor what else you can do to help prevent falls. Where to find more information ? Centers for Disease Control and Prevention, [place]: www.cdc.gov ? National Kenn[place] on Aging: www.derrick.nih.gov Contact a doctor if: ? You are afraid of falling at home. ? You feel weak, drowsy, or dizzy at home. ? You fall at home. Summary ? There are many simple things that you can do to make your home safe and to help prevent falls. ? Ways to make your home safe include removing things that can make you trip and installing grab bars in the bathroom. ? Ask for help when making these changes in your home. This information is not intended to replace advice given to you by your health care provider. Make sure you discuss any questions you have with your health care provider. Document Revised: 01/08/2022 Document Reviewed: 11/09/2020 [employer] Patient Education ? 2022 [employer]. Obstetrics and Gynecology Br (more content not included)... Normal [facility] ED [facility] Caregiving Fall Prevention in the Home, Adult Falls can cause injuries and can happen to people of all ages. There are many things you can do to make your home safe and to help prevent falls. Ask for help when making these changes. What actions can I take to prevent falls? General Instructions ? Use good lighting in all rooms. Replace any light bulbs that burn out. ? Turn on the lights in dark areas. Use night-lights. ? Keep items that you use often in kdyt-fv-gpmyz places. Lower the shelves around your home if needed. ? Set up your furniture so you have a clear path. Avoid moving your furniture around. ? Do not have throw rugs or other things on the floor that can make you trip. ? Avoid walking on wet floors. ? If any of your floors are uneven, fix them. ? Add color or contrast paint or tape to clearly sintia and help you see: ? Grab bars or handrails. ? First and last steps of staircases. ? Where the edge of each step is. ? If you use a stepladder: ? Make sure that it is fully opened. Do not climb a closed stepladder. ? Make sure the sides of the stepladder are locked in place. ? Ask someone to hold the stepladder while you use it. ? Know where your pets are when moving through your home. What can I do in the bathroom? ? Keep the floor dry. Clean up any water on the floor right away. ? Remove soap buildup in the tub or shower. ? Use nonskid mats or decals on the floor of the tub or shower. ? Attach bath mats securely with double-sided, nonslip rug tape. ? If you need to sit down in the shower, use a plastic, nonslip stool. ? Install grab bars by the toilet and in the tub and shower. Do not use towel bars as grab bars. What can I do in the bedroom? ? Make sure that you have a light by your bed that is easy to reach. ? Do not use any sheets or blankets for your bed that hang to the floor. ? Have a firm chair with side arms that you can use for support when you get dressed. What can I do in the kitchen? ? Clean up any spills right away. ? If you need to reach something above you, use a step stool with a grab bar. ? Keep electrical cords out of the way. ? Do not use floor chadian or wax that makes floors slippery. What can I do with my stairs? ? Do not leave any items on the stairs. ? Make sure that you have a light switch at the top and the bottom of the stairs. ? Make sure that there are handrails on both sides of the stairs. Fix handrails that are broken or loose. ? Install nonslip stair treads on all your stairs. ? Avoid having throw rugs at the top or bottom of the stairs. ? Choose a carpet that does not hide the edge of the steps on the stairs. ? Check carpeting to make sure that it is firmly attached to the stairs. Fix carpet that is loose or worn. What can I do on the outside of my home? ? Use bright outdoor lighting. ? Fix the edges of walkways and driveways and fix any cracks. ? Remove anything that might make you trip as you walk through a door, such as a raised step or threshold. ? Trim any bushes or trees on paths to your home. ? Check to see if handrails are loose or broken and that both sides of all steps have handrails. ? Install guardrails along the edges of any raised decks and porches. ? Clear paths of anything that can make you trip, such as tools or rocks. ? Have leaves, snow, or ice cleared regularly. ? Use sand or salt on paths during winter. ? Clean up any spills in your garage right away. This includes grease or oil spills. What other actions can I take? ? Wear shoes that: ? Have a low heel. Do not wear high heels. ? Have rubber bottoms. ? Feel good on your feet and fit well. ? Are closed at the toe. Do not wear open-toe sandals. ? Use tools that help you move around if needed. These include: ? Canes. ? Walkers. ? Scooters. ? Crutches. ? Review your medicines with your doctor. Some medicines can make you feel dizzy. This can increase your chance of falling. Ask your doctor what else you can do to help prevent falls. Where to find more information ? Centers for Disease Control and Prevention, [place]: www.cdc.gov ? National [place] on Aging: www.derrick.nih.gov Contact a doctor if: ? You are afraid of falling at home. ? You feel weak, drowsy, or dizzy at home. ? You fall at home. Summary ? There are many simple things that you can do to make your home safe and to help prevent falls. ? Ways to make your home safe include removing things that can make you trip and installing grab bars in the bathroom. ? Ask for help when making these changes in your home. This information is not intended to replace advice given to you by your health care provider. Make sure you discuss any questions you have with your health care provider. Document Revised: 01/08/2022 Document Reviewed: 11/09/2020 [employer] Patient Education ? 2022 [employer]. [facility] Oncology Progress Noteon Oncology Progress Note Chief Complaint Breast CA Pt her to go over scans and blood test results. No major ques/cocerns otherwise. Oncological History/ROS/PE/Assessment and Plan HISTORY OF PRESENT ILLNESS 71-year-old female referred for breast cancer. Initially presented to Dr. Askew with a category 5 mammogram of the right breast. She notes a palpable lump for greater than 1 year although she did not think this had changed in size. She also has medical history includes hypertension, hypercholesterolemia. She does not smoke. Her family history is unknown as she was adopted. Outpatient medications include furosemide, lisinopril, simvastatin, fish oil. Noted by Dr. Tabor to have palpable axillary adenopathy as well. A mammogram from 06/29/2021 diagnostic bilateral notes 4.2 cm mass in the right upper outer quadrant also with abnormal right axillary adenopathy. 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 She was multiple biopsy fragments 1.5 cm in length. ER greater than 95, MO greater than 95. Her2 1+ (this is negative) PETCT showed large breast mass, multiple large axillary masses. A glenoid hypermetabolic lesion R side and a mid thoracic vertebral body area of FDG uptake. 08/10/21 She has been on arimidex for two weeks. Kisquali has been ordered. no new complaints. 09/07/21 She is taking the kisquali for 3wks now. She had an outbreak of a rash from a mower blowing grass on her. She got benadryl from her pcp and was concerned about interactions. 10/05/21 continues to take kisqali 3 pills/day and anastrozole 1 daily, doing well on these is doing well without n/v/d/c, sob, chest pain or other complaints. energy is good labs reviewed, creatinine up a bit to 1.4, bilirubin 1.2, alk phos 135. Remaining labs stable is losing weight, states she isn't eating as much as she did (cut down on snacking and other bad habits with overeating) 11/02/21 is doing well overall, denies any complaints labs stable, creat 1.5, bili normalized continues to eat healthier 11/30/21 she had PET/CT from 11/25/21. IMPRESSION: INTERVAL IMPROVEMENT, WITH DECREASE IN SIZE AND DECREASE IN UPTAKE OF ACTIVITY BY THE PREVIOUSLY NOTED RIGHT BREAST MASS AND RIGHT AXILLARY LYMPH NODES. PREVIOUSLY SUSPECTED BONE METASTASES OF THE RIGHT GLENOID PROCESS AND L4 VERTEBRAL BODY NO LONGER DEMONSTRATE INCREASED UPTAKE. no side effects of treatment her creatinine elevated. She has no explanation for this. she has been trying to drink more water. restarted 3wks on kisquali 11/15. tolerating arimidex. 12/21/21 she feels more tired since she's been off of the kisqali denies shortness of breath or chest pain no n/v/d/c doing well overall labs are improved after holding kisqali for 3wks, creatinine now WNL 01/18/22 she is doing very well on the 200mg kisqali is on her off week, will start again on 01/22 energy is good, denies shortness of breath denies n/v/d/c labs stable, creatinine recovered 03/28/22 she is doing well overall recent PET/CT notes IMPRESSION: IRREGULAR RIGHT BREAST MASS, WITH SOME APPARENT INCREASE IN SIZE, BUT WITH DECREASE IN SUV VALUE WHEN COMPARED TO THE PRIOR STUDY. SMALL RIGHT AXILLARY LYMPH NODES AND THE LARGEST APPEARS SLIGHTLY SMALLER, BUT WITH GREATER SUV VALUE. SMALL FOCAL AREA OF UPTAKE OF ACTIVITY SPINOUS PROCESS L4, OF UNCLEAR SIGNIFICANCE, BUT WITH SMALL BONE METASTASIS NOT EXCLUDED. She is on a dose reduction of the kisquali. 06/06/22 she is doing well, she has no new complaints. 08/01/22 She fell the other day and hurt her tailbone. This was about a week ago. she had pet/ct shortly after. She had pet/ct 07/25/22 notes smaller breast mass. No metastatic disease. 09/27/22 she is doing well overall, has no new complaints her tailbone is still bothering her from her previous fall she is looking for a cleaning lady currently to help her out at home. She continues to care for her and is struggling with keeping up on chores still taking her Kisqali labs stable overall, her B12 was low and she would like to start b12 pills vs. injections 01/30/23 she spent some time in [facility] maybe last month. They didnt have a bed afer her last hospitalization (for uti) a few weeks ago and so upon discharge went to [facility]. Her friends are concerned she will not be safe if she goes home. she seems to have a bad memory. her is also in [facility] continues kisquali, despite our meticulous calender she seems to have trouble remembering to taek this when she was at home. She insists she is getting better and wants to go home. 05/01/23 she is in [facility]. she is convinced she will be able to be independent again. She is not walking even with a walker. continues kisquali. anemic on recent labs. 06/12/23 Continues kisquali and arimidex. recent PET/CT. notes interval enlargement of the right breast mass with development of 2 nodules with increased hypermetab (more content not included)... Normal [facility] Physician Orderon 06-12-2023 Physician Order [id number]#1.00TIFF Normal [facility] Outside Labson 06-06-2023 Outside Labs [id number]#1.00TIFF Normal [facility] Outside Radiologyon 06-06-19 Outside Radiology [id number]#1.00TIFF Normal [facility] ALL CBC WITH AUTO DIFFon BASOPHILS ABSOLUTE AUTO 0.1 N [facility] Basophils/100 WBC (Bld) 1.2 % 0.2 - 2.0 % [facility] Eosinophils/100 WBC (Bld) 3.8 % 0.9 - 7.0 % [facility] Erythrocyte distribution width (RBC) [Ratio] 13.4 % 11.0 - 15.0 % [facility] Hematocrit (Bld) [Volume fraction] 29.4 % Low 36.0 - 48.0 % [facility] Hemoglobin (Bld) [Mass/Vol] 9.4 g/dL Low 12.0 - 16.0 g/dL [facility] IMMATURE GRANULOCYTES ABS AUTO 0.02 [facility] Immature granulocytes/100 WBC (Bld) 0.4 % 0.0 - 0.5 % [facility] Interpretation and review of laboratory results Abnormal [facility] LYMPHOCYTES ABSOLUTE AUTO 1.8 [facility] Lymphocytes/100 WBC (Bld) 35.5 % 20.5 - 60.0 % [facility] MCH (RBC) [Entitic mass] 33.5 pg 26.7 - 34.0 pg [facility] MCHC (RBC) [Mass/Vol] 32.0 g/dL 29.9 - 35.2 g/dL [facility] MCV (RBC) [Entitic vol] 104.6 fL High 81.0 - 99.0 fL [facility] MONOCYTES ABSOLUTE AUTO 0.4 N [facility] Monocytes/100 WBC (Bld) 8.2 % 1.7 - 12.0 % [facility] NEUTROPHILS ABSOLUTE AUTO 2.5 [facility] Neutrophils/100 WBC (Bld) 50.9 % 43.0 - 75.0 % [facility] Platelet mean volume (Bld) [Entitic vol] 9.2 fL Low 9.5 - 13.5 fL [facility] TBH EO # 0.2 [facility] TB PLT 182 [facility] RBC 2.81 Low [facility] WBC 5.0 [facility] GLUCOSE POCT GLUCOMETERSon 0 05-31-2023 Glucose [Mass/Vol] 110 mg/dL [facility] Comment on above: Random Glucose Refer ence Range is dependent on time and content of last meal. Glucose of more than 200 mg/dL in a nonstressed, ambulatory subject supports the diagnosis of Diabetes Mellitus. [facility] Glucose Glucometer (BldC) [M ass/Vol]Ordered By: Senthil Caldera on 05-31-2023 Glucose [Mass/Vol] 110 mg/dL [facility] Comment on above: Random Glucose Refer ence Range is dependent on time and content of last meal. Glucose of more than 200 mg/dL in a nonstressed, ambulatory subject supports the diagnosis of Diabetes Mellitus. Glucose Poct Glucometerson 0 05-31-2023 Glucose [Mass/Vol] 110 mg/dL Normal [facility] Comment on above: Result Comment: [facility] Glucose Reference Range is dependent on time and content of last meal. Glucose of more than 200 mg/dL in a nonstressed, ambulatory subject supports the diagnosis of Diabetes Mellitus. PERFORMED BY: [place] [address] PATHOLOGIST DIRECTOR OF [employer]OT[employer] JERICA JO M.D. Performed By: #### G ANGY #### Point of Care testing , PET tumor subq tx strat sb-m ton 05-31-2023 PET tumor subq tx strat sb-mt [facility] [place] [address] Nuclear Medicine Report Signed Patient: Marlen Staley MR#: [id number] 65 : 1950 Acct:[id number] Age/Sex: 72 / F ADM Date: 05/31/23 Loc: Room: Type: [facility] Attending Dr: Senthil Caldera II DO Copies to: Senthil J Adamowicz, DO Franco MAZA Jeffrey S DO Ordering Provider: Senthil Caldera [...] cavity is present. Although distribution may be associate financial representative of asymmetric physiologic uptake, if there [...] ADRE (more content not included)... Normal [facility] ALL CBC WITH AUTO DIFFon BASOPHILS ABSOLUTE AUTO 0.1 N [facility] Basophils/100 WBC (Bld) 2.0 % 0.2 - 2.0 % [facility] Eosinophils/100 WBC (Bld) 3.3 % 0.9 - 7.0 % [facility] Erythrocyte distribution width (RBC) [Ratio] 13.2 % 11.0 - 15.0 % [facility] Hematocrit (Bld) [Volume fraction] 28.4 % Low 36.0 - 48.0 % [facility] Hemoglobin (Bld) [Mass/Vol] 9.2 g/dL Low 12.0 - 16.0 g/dL [facility] IMMATURE GRANULOCYTES ABS AUTO 0.02 [facility] Immature granulocytes/100 WBC (Bld) 0.4 % 0.0 - 0.5 % [facility] Interpretation and review of laboratory results Abnormal [facility] LYMPHOCYTES ABSOLUTE AUTO 2.0 [facility] Lymphocytes/100 WBC (Bld) 43.8 % 20.5 - 60.0 % [facility] MCH (RBC) [Entitic mass] 33.5 pg 26.7 - 34.0 pg [facility] MCHC (RBC) [Mass/Vol] 32.4 g/dL 29.9 - 35.2 g/dL [facility] MCV (RBC) [Entitic vol] 103.3 fL High 81.0 - 99.0 fL [facility] MONOCYTES ABSOLUTE AUTO 0.3 N [facility] Monocytes/100 WBC (Bld) 6.9 % 1.7 - 12.0 % [facility] NEUTROPHILS ABSOLUTE AUTO 2.0 [facility] Neutrophils/100 WBC (Bld) 43.6 % 43.0 - 75.0 % [facility] Platelet mean volume (Bld) [Entitic vol] 9.0 fL Low 9.5 - 13.5 fL [facility] TBH EO # 0.2 [facility] TBH PLT 226 [facility] TBH RBC 2.75 Low [facility] TBH WBC 4.5 [facility] Insurance Correspondenceon 0 05-23-2023 Insurance Correspondence [id number]#1.00TIFF Normal [facility] Oncology Noteon 05-20-2023 Oncology Note Per phone call from Claudette/[facility] [phone] - she wondered if we had the prescription number to patient's Kisqali. Claudette is not sure what happened but patient does not have anymore Kisqali. Claudette has the pharmacy number but not the prescription number. I informed Claudette, we do not have the prescription number because medication is sent directly to the patient. Claudette verbalized understanding. Claudette will ask pharmacy to expedite medication to them, since patient is suppose to be taking it but doesn't have any to take. [facility] Comment on above: Result Comment: Elec tronically Signed By: Jane FARMER, Yolande Grande.johnnie\Date and Time Signed: 05/20/23 14:48 EST Physician Orderon 05-15-2023 Physician Order [id number]#1.00TIFF [facility] Comment on above: Other Comment: wrong patient Physician Orderon 05-14-2023 Physician Order [id number]#1.00TIFF [facility] Outside Labson 05-02-2023 Outside Labs [id number]#1.00TIFF [facility] Outside Labs [id number]#1.00TIFF [facility] Physician Orderon 05-02-2023 Physician Order [id number]#1.00TIFF [facility] Physician Order [id number]#1.00TIFF [facility] Consent for Treatmenton 04-22 Consent for Treatment [id number]#1.00TIFF 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 Dr. Caldera saw pt. Treatment Plan: PET at [facility] soon, since pt is corrina lift. CBC, CMP, iron studies, Folate, epo, [id number] before f/u (send orders to [facility]). Kisqali 200 mg 3 PO daily 3 weeks on 1 week off. Follow-Up Appointment Info/Referrals: F/U in 6 weeks. Resources Offered: Pt voiced no questions or concerns to me when I asked. I instructed that [facility] would call for PET, and lab orders would be faxed to [facility]. Pt voiced understanding of same. Pt also to continue Anastrozole PO daily. Normal [facility] Comment on above: Result Comment: Graciela valderramanically Signed By: Magda FARMER, Annia\.br\Date and Time Signed: 05/01/23 15:05 EST Oncology Progress Noteon Oncology Progress Note Patient: MARLEN STALEY Age: 72 years Sex: Female : 1950 Associated Diagnoses: None Author: Senthil Caldera DO Chief Complaint History of Present Illness 71-year-old female referred for breast cancer. Initially presented to Dr. Askew with a category 5 mammogram of the right breast. She notes a palpable lump for greater than 1 year although she did not think this had changed in size. She also has medical history includes hypertension, hypercholesterolemia. She does not smoke. Her family history is unknown as she was adopted. Outpatient medications include furosemide, lisinopril, simvastatin, fish oil. Noted by Dr. Tabor to have palpable axillary adenopathy as well. A mammogram from 06/29/2021 diagnostic bilateral notes 4.2 cm mass in the right upper outer quadrant also with abnormal right axillary adenopathy. 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 She was multiple biopsy fragments 1.5 cm in length. ER greater than 95, MO greater than 95. Her2 1+ (this is negative) PETCT showed large breast mass, multiple large axillary masses. A glenoid hypermetabolic lesion R side and a mid thoracic vertebral body area of FDG uptake. 08/10/21 She has been on arimidex for two weeks. Kisquali has been ordered. no new complaints. 09/07/21 She is taking the kisquali for 3wks now. She had an outbreak of a rash from a mower blowing grass on her. She got benadryl from her pcp and was concerned about interactions. 10/05/21 continues to take kisqali 3 pills/day and anastrozole 1 daily, doing well on these is doing well without n/v/d/c, sob, chest pain or other complaints. energy is good labs reviewed, creatinine up a bit to 1.4, bilirubin 1.2, alk phos 135. Remaining labs stable is losing weight, states she isn't eating as much as she did (cut down on snacking and other bad habits with overeating) 11/02/21 is doing well overall, denies any complaints labs stable, creat 1.5, bili normalized continues to eat healthier 11/30/21 she had PET/CT from 11/25/21. IMPRESSION: INTERVAL IMPROVEMENT, WITH DECREASE IN SIZE AND DECREASE IN UPTAKE OF ACTIVITY BY THE PREVIOUSLY NOTED RIGHT BREAST MASS AND RIGHT AXILLARY LYMPH NODES. PREVIOUSLY SUSPECTED BONE METASTASES OF THE RIGHT GLENOID PROCESS AND L4 VERTEBRAL BODY NO LONGER DEMONSTRATE INCREASED UPTAKE. no side effects of treatment her creatinine elevated. She has no explanation for this. she has been trying to drink more water. restarted 3wks on kisquali 11/15. tolerating arimidex. 12/21/21 she feels more tired since she's been off of the kisqali denies shortness of breath or chest pain no n/v/d/c doing well overall labs are improved after holding kisqali for 3wks, creatinine now WNL 01/18/22 she is doing very well on the 200mg kisqali is on her off week, will start again on 01/22 energy is good, denies shortness of breath denies n/v/d/c labs stable, creatinine recovered 03/28/22 she is doing well overall recent PET/CT notes IMPRESSION: IRREGULAR RIGHT BREAST MASS, WITH SOME APPARENT INCREASE IN SIZE, BUT WITH DECREASE IN SUV VALUE WHEN COMPARED TO THE PRIOR STUDY. SMALL RIGHT AXILLARY LYMPH NODES AND THE LARGEST APPEARS SLIGHTLY SMALLER, BUT WITH GREATER SUV VALUE. SMALL FOCAL AREA OF UPTAKE OF ACTIVITY SPINOUS PROCESS L4, OF UNCLEAR SIGNIFICANCE, BUT WITH SMALL BONE METASTASIS NOT EXCLUDED. She is on a dose reduction of the kisquali. 06/06/22 she is doing well, she has no new complaints. 08/01/22 She fell the other day and hurt her tailbone. This was about a week ago. she had pet/ct shortly after. She had pet/ct 07/25/22 notes smaller breast mass. No metastatic disease. 09/27/22 she is doing well overall, has no new complaints her tailbone is still bothering her from her previous fall she is looking for a cleaning lady currently to help her out at home. She continues to care for her and is struggling with keeping up on chores still taking her Kisqali labs stable overall, her B12 was low and she would like to start b12 pills vs. injections 01/30/23 she spent some time in [facility] maybe last month. They didnt have a bed afer her last hospitalization (for uti) a few weeks ago and so upon discharge went to [facility]. Her friends are concerned she will not be safe if she goes home. she seems to have a bad memory. her is also [facility] despite our meticulous calender she seems to have trouble remembering to taek this when she was at home. She insists she is getting better and wants to go home. 05/01/23 she is in [facility]. she is convinced she will be able to be independent again. She is not walking even with a walker. continues kisquali. anemic on recent labs. Review of Systems Constitutional: Negative. Eye: Negative. Ear/Nose/Mouth/Throat: Negative. Respiratory: Negative. Cardiovascular: Negative. Gastrointes (more content not included)... Normal [facility] Outside Labson 05-01-2023 Outside Labs [id number]#1.00TIFF [facility] ONC - Otheron 02-07-2023 ONC - Other [id number]#1.00TIFF [facility] Physician Orderon 02-05-2023 Physician Order [id number]#1.00TIFF [facility] Consent for Treatmenton 01-20 Consent for Treatment [id number]#1.00TIFF [facility] Oncology Noteon 01-30-2023 Oncology Note Oncology Care Coordi nator Office Visit/Treatment Note Current Patient Status/Reason: Patient here with friend, Karolina for scheduled clinic visit. I accompanied Dr. Caldera and medical student N[place] in room. Patient is currently at [facility]. Labs done at [facility] 01/28/2023 reviewed. Disease process and treatment options discussed. Patient informs she like [facility] and having people around to socialize with. Physical exam done. Treatment Plan: continue Kisqali, monthly labs, PET 04/24/2023 Follow-Up Appointment Info/Referrals: after PET Resources Offered: Orders for [facility] regarding monthly labs filled out. Patient denies any questions/concerns at this time. Normal [facility] Comment on above: Result Comment: Elec tronically Signed By: Jane FARMER, Yolande [place]\.br\Date and Time Signed: 01/30/23 17:07 EDT Oncology Progress Noteon Oncology Progress Note Patient: MARLEN STALEY Age: 72 years Sex: Female : 1950 Associated Diagnoses: None Author: Senthil Caldera DO Chief Complaint History of Present Illness 71-year-old female referred for breast cancer. Initially presented to Dr. Askew with a category 5 mammogram of the right breast. She notes a palpable lump for greater than 1 year although she did not think this had changed in size. She also has medical history includes hypertension, hypercholesterolemia. She does not smoke. Her family history is unknown as she was adopted. Outpatient medications include furosemide, lisinopril, simvastatin, fish oil. Noted by Dr. Tabor to have palpable axillary adenopathy as well. A mammogram from 06/29/2021 diagnostic bilateral notes 4.2 cm mass in the right upper outer quadrant also with abnormal right axillary adenopathy. 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 She was multiple biopsy fragments 1.5 cm in length. ER greater than 95, MO greater than 95. Her2 1+ (this is negative) PETCT showed large breast mass, multiple large axillary masses. A glenoid hypermetabolic lesion R side and a mid thoracic vertebral body area of FDG uptake. 08/10/21 She has been on arimidex for two weeks. Kisquali has been ordered. no new complaints. 09/07/21 She is taking the kisquali for 3wks now. She had an outbreak of a rash from a mower blowing grass on her. She got benadryl from her pcp and was concerned about interactions. 10/05/21 continues to take kisqali 3 pills/day and anastrozole 1 daily, doing well on these is doing well without n/v/d/c, sob, chest pain or other complaints. energy is good labs reviewed, creatinine up a bit to 1.4, bilirubin 1.2, alk phos 135. Remaining labs stable is losing weight, states she isn't eating as much as she did (cut down on snacking and other bad habits with overeating) 11/02/21 is doing well overall, denies any complaints labs stable, creat 1.5, bili normalized continues to eat healthier 11/30/21 she had PET/CT from 11/25/21. IMPRESSION: INTERVAL IMPROVEMENT, WITH DECREASE IN SIZE AND DECREASE IN UPTAKE OF ACTIVITY BY THE PREVIOUSLY NOTED RIGHT BREAST MASS AND RIGHT AXILLARY LYMPH NODES. PREVIOUSLY SUSPECTED BONE METASTASES OF THE RIGHT GLENOID PROCESS AND L4 VERTEBRAL BODY NO LONGER DEMONSTRATE INCREASED UPTAKE. no side effects of treatment her creatinine elevated. She has no explanation for this. she has been trying to drink more water. restarted 3wks on kisquali 11/15. tolerating arimidex. 12/21/21 she feels more tired since she's been off of the kisqali denies shortness of breath or chest pain no n/v/d/c doing well overall labs are improved after holding kisqali for 3wks, creatinine now WNL 01/18/22 she is doing very well on the 200mg kisqali is on her off week, will start again on 01/22 energy is good, denies shortness of breath denies n/v/d/c labs stable, creatinine recovered 03/28/22 she is doing well overall recent PET/CT notes IMPRESSION: IRREGULAR RIGHT BREAST MASS, WITH SOME APPARENT INCREASE IN SIZE, BUT WITH DECREASE IN SUV VALUE WHEN COMPARED TO THE PRIOR STUDY. SMALL RIGHT AXILLARY LYMPH NODES AND THE LARGEST APPEARS SLIGHTLY SMALLER, BUT WITH GREATER SUV VALUE. SMALL FOCAL AREA OF UPTAKE OF ACTIVITY SPINOUS PROCESS L4, OF UNCLEAR SIGNIFICANCE, BUT WITH SMALL BONE METASTASIS NOT EXCLUDED. She is on a dose reduction of the kisquali. 06/06/22 she is doing well, she has no new complaints. 08/01/22 She fell the other day and hurt her tailbone. This was about a week ago. she had pet/ct shortly after. She had pet/ct 07/25/22 notes smaller breast mass. No metastatic disease. 09/27/22 she is doing well overall, has no new complaints her tailbone is still bothering her from her previous fall she is looking for a cleaning lady currently to help her out at home. She continues to care for her and is struggling with keeping up on chores still taking her Kisqali labs stable overall, her B12 was low and she would like to start b12 pills vs. injections 01/30/23 she spent some time in [facility] maybe last month. They didnt have a bed afer her last hospitalization (for uti) a few weeks ago and so upon discharge went to [facility]. Her freinds are concerned she will not be safe if she goes home. she seems to have a bad memory. her is also in [facility] continues kisquali, despite our meticulous calender she seems to have trouble remembering to taek this when she was at home. She insists she is getting better and wants to go home. Review of Systems Constitutional: Negative. Eye: Negative. Ear/Nose/Mouth/Throat: Negative. Respiratory: Negative. Cardiovascular: Negative. Gastrointestinal: Negative. Genitourinary: Negative. Hematology/Lymphatics: Negative. Endocrine: Negative. Immunologic: Negative. Musculoskeletal: Negative. Integumentary: Negative. Neur (more content not included)... Normal [facility] Outside Labson 01-29-2023 Outside Labs [id number]#1.00TIF F Normal [facility] Outside Labs [id number]#1.00TIF F Normal [facility] Outside Lab[facility] 01-28-2023 Outside Labs [id number]#1.00TIFF Normal [facility] Coding Queryon 01-16-2023 Coding Query - From: Monika Macdonald RN To: Zaheer Sloan DO; Sent: 12/25/2022 14:39:14 EDT ! Subject: Coding Query Due Date/Time: 12/31/2022 14:39:00 EDT Caller Name: MARLEN STALEY; Caller Number: H Documentation in the medical record indicates this patient has been admitted with or diagnosed as having: UTI The following is also documented in the medical record: Other: 03/27/2022 eGFR 1.4, 05/07/2022 eGFR 40, 06/05/2022 eGFR 44, 07/09/2022 eGFR 40, 09/08/2022 eGFR 43, 09/25/2022 eGFR 53, 11/01/2022 eGFR 43, 12/19/2022 eGFR 40, 12/21/2022 eGFR 40 Based on your medical judgment, can you please clarify which, if any, of the following conditions are present? Respond back with any that apply: [___]Chronic Kidney Disease Stage 3, unspecified (GFR 30-59) [___]Chronic Kidney Disease Stage 3a (GFR 45-59) [___]Chronic Kidney Disease Stage 3b (GFR 30-44) [___]Chronic Kidney Disease, unspecified [___]Acute on chronic renal failure [___]Other: * Chronic Kidney Disease Staging Recommendation Based on KDIGO 2012 Guidelines In responding to this request, please exercise your independent professional judgement. The fact that a question is asked does not imply that any particular answer is desired or expected. Thank you! Monika [phone] Chronic kidney disease stage IIIb From: Zaheer Sloan DO To: Monika Macdonald RN; Sent: 01/16/2023 12:27:31 EDT Subject: RE: Coding Query Caller Name: MARLEN STALEY; Caller Number: H [facility] ONC - Otheron 01-16-2023 ONC - Other [id number]#1.00CD:1 27 [facility] ONC - Otheron 01-09-2023 ONC - Other [id number]#1.00CD:1 27 [facility] Discharge Instructionson Discharge Instructions [id number]#1.00CD:1 27 [facility] Transfer Documentson 023 Transfer Documents [id number]#1.00CD:1 27 [facility] CHEMISTRYOrdered By: Lab ROP User on 12-23-2022 Glucose [Mass/Vol] 111 mg/dL High 55 - 99 mg/dL [facility] POC Subsection Comment on above: Result Comment: Navin BOSE POC Device SN [id number] Invalid Interpretation Code [facility] POC Subsection POC User ID [id number] Invalid Interpretation Code [facility] POC Subsection POC Username JUAN HENNESSY Invalid Interpretation Code [facility] POC Subsection Capillary Glucose POCon Glucose [Mass/Vol] 111 mg/dL High 55-99 [facility] Comment on above: Result Comment: Navin BOSE Performed By: #### [id number] ####[facility] [id number] [place] [address] Discharge Note-Nursingon Discharge Note-Nursing MARLEN STALEY :1950 Visit Date:12/20/2022 Inpatient Discharge Instructions Your Care Team Admitting Physician - LUCHO HANKS, Mbbeefo Reason for Your Visit Fall Your Diagnosis UTI (urinary tract infection) Age-related cognitive decline History of breast cancer HTN (hypertension) Hypercholesteremia Dysuria Weakness or fatigue Tests Performed Automated Diff BMP BMP Capillary Glucose POC CBC w/ Auto Diff eGFR Hepatic Function Panel HgbA1c Troponin 0 Hr. Troponin 3 Hr. UA With Cult Reflex XR Chest Single View This Is Your Medications List acetaminophen (acetaminophen 500 mg Tab) anastrozole (anastrozole 1 mg Tab) cephalexin (Keflex 500 mg Cap) cholecalciferol (Vitamin D3 2000 intl units oral tablet) cyanocobalamin (Vitamin B12 1000 mcg Tab) lisinopril (lisinopril 10 mg Tab) melatonin (melatonin 5 mg oral tablet) ribociclib (Kisqali (200 mg daily dose) oral tablet) simvastatin (simvastatin 40 mg Tab) Discharge Vitals Temperature (Axillary) 36.6 ?C Heart Rate (Monitored) 56 Respiratory Rate 18 Blood Pressure 96/64 Weight 90.7 kg What to do next Instructions From Your Doctor Event Name Event Result Discharge Diet(s) Regular Pending Diagnostic Test Results None Pharmacy Information [facility] Discharge Instructions Please return to ER if symptoms change or worsen. Previously Scheduled Follow-Up Appointments Saturday 2:45 PM EDT With: Senthil Caldera DO Where: [facility] New Follow Up Appointments after Discharge Follow Up with Azar HANKS, NIKOLE Benedict When: Where: [address] [place] [id number]- Medications What How Much When Why Instructions Next Dose Unchanged acetaminophen (acetaminophen 500 mg Tab) 2 Tablets By Mouth Every 6 hours NEEDED FOR PAIN Unchanged anastrozole (anastrozole 1 mg Tab) 1 Tablets By Mouth Every day 12/24/2022 @ 9 AM Unchanged cephalexin (Keflex 500 mg Cap) 1 Capsules By Mouth 4 times a day Duration: 7 Days 12/23/2022 @ 2 PM Unchanged cholecalciferol (Vitamin D3 2000 intl units oral tablet) 1 Tablets By Mouth Every day 12/24/2022 @ 9 AM Unchanged cyanocobalamin (Vitamin B12 1000 mcg Tab) 1 Tablets By Mouth Every day Breast CA 12/24/2022 @ 9 AM Unchanged lisinopril (lisinopril 10 mg Tab) 1 Tablets By Mouth Every day 12/24/2022 @ 9 AM Unchanged melatonin (melatonin 5 mg oral tablet) 1 Tablets By Mouth Once a day (at bedtime) as needed for for insomnia 12/23/2022 @ 9 PM Unchanged ribociclib (Kisqali (200 mg daily dose) oral tablet) See instructions Breast CA 2 tab(s) take for 21 days, withhold for 7 days, then repeat cycle. 11 REFILLS 12/23/2022 @ 12 PM Unchanged simvastatin (simvastatin 40 mg Tab) 1 Tablets By Mouth Once a day (at bedtime) 12/23/2022 @ 9 PM Test Results CBC BMP WBC: 3.3 E9/L Low (12/21/22 06:07:00) Glucose Lvl: 102 mg/dL (12/21/22 06:07:00) RBC: 2.7 E12/L Low (12/21/22 06:07:00) BUN: 36 mg/dL High (12/21/22 06:07:00) HGB: 9.3 gm/dL Low (12/21/22 06:07:00) Creatinine: 1.4 mg/dL High (12/21/22 06:07:00) Hct: 26.8 % Low (12/21/22 06:07:00) BUN/Creat Ratio: 26 High (12/21/22 06:07:00) MCV: 98.6 fL (12/21/22 06:07:00) Sodium Lvl: 141 mmol/L (12/21/22 06:07:00) MCH: 34.3 pg High (12/21/22 06:07:00) Potassium Lvl: 4 mmol/L (12/21/22 06:07:00) MCHC: 34.8 gm/dL (12/21/22 06:07:00) Chloride: 112 mmol/L High (12/21/22 06:07:00) RDW: 18.4 % High (12/21/22 06:07:00) CO2: 22 mmol/L (12/21/22 06:07:00) Platelet: 201 E9/L (12/21/22 06:07:00) AGAP: 11 mEq/L (12/21/22 06:07:00) MPV: 6.8 fL (12/21/22 06:07:00) Calcium Lvl: 8.9 mg/dL (12/21/22 06:07:00) Allergies Bee Stings (SOB - Shortness of breath) penicillins (SOB - Shortness of breath) sulfa drugs (SOB - Shortness of breath) Problems Ongoing - Any problem that you are currently receiving treatment for. Age-related cognitive decline Axillary adenopathy Chronic edema Diabetes History of breast cancer History of healed fragility fracture HTN (hypertension) Hypercholesteremia Invasive ductal carcinoma of right breast Multiple closed fractures of pelvis with stable disruption of pelvic ring with routine healing, subsequent encounter Vitamin D deficiency Education Materials Antibiotic Medicine, Adult Antibiotic medicines treat infections caused by a type of germ called bacteria. These medicines work by killing the bacteria that make you sick. You should take antibiotic medicines safely and only when needed. When do I need to take antibiotics? You may need antibiotics for: ? A urinary tract infection (UTI). ? Strep throat. ? A sinus infection caused by bacteria. ? Meningitis. This affects the spinal cord and brain. ? A bad lung infection. You may start your medicines while your doctor waits for your results on some tests. When your results (more content not included)... Normal [facility] C Urineon 12-22-2022 Bacteria identified Cx Nom (U) Microbiology PROCEDURE: Urine Culture [R1] SOURCE: U CleanCatch BODY SITE: COLLECTED DATE/TIME: 12/20/2022 17:18 EDT RECEIVED DATE/TIME: 12/20/2022 17:49 EDT START DATE/TIME: 12/20/2022 17:49 EDT FREE TEXT SOURCE: Pedro Nava DO, DO, Kevin M. FINAL REPORTS Final Report [] Verified Date/Time: 12/22/2022 07:10 EDT 1,000 cfu/ml Mixed skin contaminants Performing Locations R1: This test was performed at: [facility], [address] [place] [address], [facility]- , , [facility] Comment on above: Performed By: #### 1 [id number], [id number], 1008825, 2249668, 1730009, 51486389, 7830340, [id number] #### [facility] [address] [place] [address] CHEMISTRYOrdered By: Lab ROP User on 12-22-2022 Glucose [Mass/Vol] 155 mg/dL High 55 - 99 mg/dL [facility] POC Subsection Comment on above: Result Comment: Navin uriostegui RN/ POC Device SN [id number] Invalid Interpretation Code [facility] POC Subsection POC User ID [id number] Invalid Interpretation Code [facility] POC Subsection POC Username SANTOS, DANEKA Invalid Interpretation Code [facility] POC Subsection Glucose [Mass/Vol] 129 mg/dL High 55 - 99 mg/dL [facility] POC Subsection Comment on above: Result Comment: Christine donna Meter POC Device SN [id number] Invalid Interpretation Code [facility] POC Subsection POC User ID [id number] Invalid Interpretation Code [facility] POC Subsection POC Username ROOPA LIM Invalid Interpretation Code [facility] POC Subsection Capillary Glucose POCon Glucose [Mass/Vol] 155 mg/dL High 55-99 [facility] Comment on above: Result Comment: Navin BOSE Performed By: #### 1 [id number], 5999400, 3611393, 1169652, 7987423, 16819433, 0400172, [id number] #### [facility] [address] [place] [address] Glucose [Mass/Vol] 129 mg/dL High 55-99 [facility] Comment on above: Result Comment: Christine donna Meter Performed By: #### 1 [id number], 8832167, 9572531, 5346675, 9369809, 13722985, 8946102, [id number] #### [facility] [address] [place] [address] Glucose [Mass/Vol] 158 mg/dL High 55-99 [facility] Comment on above: Result Comment: Christine donna Meter Performed By: #### 1 [id number], 2090814, 5857735, 3375994, 5036518, 01622861, 4878631, 80362559 #### [facility] [address] [place] [address] Glucose [Mass/Vol] 144 mg/dL High 55-99 [facility] Comment on above: Result Comment: Navin BOSE Performed By: #### 1 1789126, 7812827, 2032945, 7670766, 0552152, 09802634, 5305707, 55632916 #### [facility] [address] [place] [address] 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 Note - Attila e Manageron 12-22-2022 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 Note - Filling Hauler CRM spoke with patient. Patient was previous rounded on by Dr Sloan today. Spouse is also patient and is in other bed in room. Patient is alert and oriented. Whiteboard updated and CRM contact # provided. Discussed with patient that [facility] does not have any beds and referral was made to [facility] but they do not take [employer]. Referral was sent to [facility] for both her and her spouse and they have accepted and started precert. Patient becomes upset and states that is to far away and to far for her Family to visit. Discussed only other closer facility is [facility] that takes her and spouse insurance. Patient states she will moose her insurance man and her friend Karolina and discuss with them. Okay for CRM to call Karolina and daughter and update them as well. She does not want CRM to cancel [facility] referral yet a she needs to talk to Karolina. CRM called both Karolina and daughter Helen, no answer and left CRM contact number and VM on dc plans. 1406- Daughter Helen called CRM back and is agreeable to [facility] and states it is close for her to visit parents. She will also talk to Karolina and she is she can get patient to agree. CRM updated patient and she still says she needs to talk to Karolina and not to moose her daughter any more as she makes her own decisions. 1504- Karolina called CRM back and she spoke with patient and she is now agreeable to go to [facility] as well as for her spouse to go there and updated her precert was obtained for [facility] and will dc tomorrow as she feels today is to soon for the patient and may upset her too much. 1510- CRM to room and spoke with patient and she is agreeable to go to [facility] SNF now. Discussed precert was obtained and could possible dc today. Patient became upset and said not today she and he spouse need time to get ready and her friend needs to bring her things. Will stay tonight and plan for dc in the am. CRM did explain this to spouse as well and he is agreeable. [facility] Comment on above: Result Comment: Elec tronically Signed By: Enoc FARMER, Jolanta\.br\Date and Time Signed: 12/22/22 16:25 EDT Progress Note-Physicianon Progress Note-Physician Assessment/Plan 1. UTI (urinary tract infection) (N39.0: Urinary tract infection, site not specified) ? Urine culture positive for E. coli, pansensitive ? We will continue Keflex as patient tolerated in the past ? We will continue to monitor for signs of improvement 2. Age-related cognitive decline (R41.81: Age-related cognitive decline) ? PT/OT ? Monitor labs IV fluids Likely will need placement as it was already attempted by nurse at Dr. Askew's office 3. History of breast cancer (Z85.3: Personal history of malignant neoplasm of breast) ? Continue kisqali ?Patient follows with Dr. Hernandez as outpatient 4. HTN (hypertension) (I10: Essential (primary) hypertension) ? Monitor ? Continue lisinopril 10 mg 5. Hypercholesteremia (E78.00: Pure hypercholesterolemia, unspecified) ? Continue statin Orders: Patient Specific Meds, Kisqali, [...] and Implement Plan Referral to [facility] Subjective Patient seen and examined. No acute events overnight. Patient resting comfortably in bed. Patient has no other complaints at this time. Objective Vitals & Measurements T: 36.9 ?C(Oral) TMIN: 36.4 ?C(Axillary) TMAX: 37.2 ?C(Tympanic) HR: 62(Monitored) RR: 17 BP: 115/70 SpO2: 97% WT: 88.8 kg Intake & Output This visit (24 hour periods starting at 07:00 EDT) 12/22/22 * 12/21/22 12/20/22 Total Summary Intake mL -- 1,272.3 1,003.28 Output mL -- -- -- Fluid Balance -- 1,272.3 1,003.28 Intake (2) Oral Intake mL -- -- 200 Sodium Chloride 0.9% intravenous solution 1,000 mL mL -- 1,272.3 803.28 Total -- 1,272.3 1,003.28 Output (0) Counts (1) Urine Count -- -- 1 * This column has not completed the indicated time period. Physical Exam General: Looks well, no acute distress, well-nourished, obese Skin: Warm, dry Head: No trauma, normocephalic Neck: Trachea midline, supple, negative for JVD Eye: Conjunctive are clear, clear sclera , EOMI ENMT: oral mucosa moist, no lesions or edema nose or external ears Cardiovascular: Regular rate and rhythm, S1-S2 present, negative for murmurs rubs or gallops Respiratory: Lungs clear to auscultation, bilateral symmetric movement, negative for wheezes rales or rhonchi Chest wall: no deformity. Gastrointestinal: Abdomen soft, nontender to palpation, bowel sounds present Back: No tenderness Extremities: Range of motion intact, no edema Neurological: awake, alert, speech normal, cranial nerves II through XII intact, no sensory defects, alert and oriented x3 Psychiatric: cooperative, affect appropriate for age, pleasant Lab Results Glucose Cap: 144 mg/dL High (12/22/22 07:31:00) POC Device SN: [id number] (12/22/22 07:31:00) POC User ID: [id number] (12/22/22 07:31:00) POC Username: JANELLE RHODES (12/22/22 07:31:00) Problem List/Past Medical History Ongoing Age-related cognitive decline Axillary adenopathy Chronic edema Diabetes History of breast cancer History of healed fragility fracture HTN (hypertension) Hypercholesteremia Invasive ductal carcinoma of right breast Multiple closed fractures of pelvis with stable disruption of pelvic ring with routine healing, subsequent encounter Vitamin D deficiency Historical No qualifying data Medications Inpatient acetaminophen 325 mg Tab, 975 mg= 3 tab(s), Oral, q6hr, PRN anastrozole 1 mg Tab, 1 mg= 1 tab(s), Oral, Daily Dextrose 50% Soln-IV, 50 mL, IV Push, Once, PRN heparin, 5000 unit(s)= 1 mL, SubCutaneous, q8hrFT Insulin Lispro Sliding Scale, 0-10 Unit(s), SubCutaneous, QIDACHS Keflex 500 mg Cap, 500 mg= 1 cap(s), Oral, QID Kisqali, Normal Patient Dose, Oral, Daily lisinopril 10 mg Tab, 10 mg= 1 tab(s), Oral, Daily melatonin 3 mg Tab, 6 mg= 2 tab(s), Oral, Once a day (at bedtime), PRN [place] 5/325 Tab, 1 tab(s), Oral, q4hr, PRN NS 1000 mL Soln-IV 1,000 mL, 1000 mL, IV simvastatin 40 mg Tab, 40 mg= 1 tab(s), Oral, Once a day (at bedtime) Sodium Chloride 0.9% IV Billie 1000 mL 1,000 mL, 1000 mL, IV Vitamin B12 1000 mcg Tab, 1000 mcg= 1 tab(s), Oral, Daily Vitamin D3 1000 intl units (25 mcg) Tab, 50 mcg= 2 tab(s), Oral, Daily Home acetaminophen 500 mg Tab, 1000 mg= 2 tab(s), Oral, q6hr anastrozole 1 mg Tab, 1 mg= 1 tab(s), Oral, Daily, 11 refills Keflex 500 mg Cap, 500 mg= 1 cap(s), Oral, QID Kisqali (200 mg daily dose) oral tablet, See Instructions, 1 refills lisinopril 10 mg Tab, 10 mg= 1 tab(s), Oral, Daily melatonin 5 mg oral tablet, 5 mg= 1 tab(s), Oral, Once a day (at bedtime), PRN simvastatin 40 mg Tab, 40 mg= 1 tab(s), Oral, Once a day (at bedtim (more content not included)... Normal [facility] Comment on above: Result Comment: Elec tronically Signed By: Zaheer Sloan DO\.br\Date and Time Signed: 12/22/22 09:47 EDT Auto Diffon 12-21-2022 Basophils/100 WBC (Bld) 2.6 % High 0.0-2.0 [facility] Comment on above: Order Comment: Order Added by Discern Expert. Performed By: #### 2 535964, 2922616, 2882686, [id number], 94601037 ####[facility] [address] [place] [address] Basophils/Leukocytes Auto (Bld) [Pure # fraction] 0.1 E9/L Normal 0.0-0.2 [facility] Comment on above: Order Comment: Order Added by Discern Expert. Performed By: #### 2 228423, 9607888, 5536223, 205922719, 52868539 ####[address] [address] Eosinophils/100 WBC (Bld) 2.5 % Normal 0.0-8.0 [facility] Comment on above: Order Comment: Order Added by Discern Expert. Performed By: #### 2 160871, 1441236, 7351509, 120600833, 67069744 ####[address] [address] Eosinophils/Leukocytes Auto (Bld) [Pure # fraction] 0.1 E9/L Normal 0.0-0.5 [facility] Comment on above: Order Comment: Order Added by Discern Expert. Performed By: #### 2 147505, 3919225, 3432385, 852087445, 54890407 ####[address] [address] Lymphocytes/100 WBC (Bld) 42.1 % Normal 14.0-50.0 [facility] Comment on above: Order Comment: Order Added by Discern Expert. Performed By: #### 2 086644, 4783780, 5959104, 343044462, 12970584 ####[address] [address] Lymphocytes/Leukocytes Auto (Bld) [Pure # fraction] 1.4 E9/L Normal 1.0-4.0 [facility] Comment on above: Order Comment: Order Added by Discern Expert. Performed By: #### 2 107376, 8999759, 0055623, 913507135, 52600647 ####[address] [address] Monocytes/100 WBC (Bld) 13.6 % Normal 4.0-14.0 [facility] Comment on above: Order Comment: Order Added by Discern Expert. Performed By: #### 2 076633, 1328390, 3923228, 065600871, 25526755 ####[address] [place] [address] Monocytes/Leukocytes Auto (Bld) [Pure # fraction] 0.4 E9/L Normal 0.2-1.0 [facility] Comment on above: Order Comment: Order Added by Discern Expert. Performed By: #### 2 802751, 0625574, 5555308, 560894509, 86779533 ####[address] [place] [address] Neutrophils/100 WBC (Bld) 39.2 % Normal 36.0-75.0 [facility] Comment on above: Order Comment: Order Added by Discern Expert. Performed By: #### 2 856725, 7252153, 0421847, 325625213, 83708812 ####[address] [place] [address] Neutrophils/Leukocytes Auto (Bld) [Pure # fraction] 1.3 E9/L Low 2.0-7.5 [facility] Comment on above: Order Comment: Order Added by Discern Expert. Performed By: #### 2 963152, 2683282, 1902645, 681604782, 18428493 ####[address] [place] [address] BMPon 12-21-2022 Anion gap [Moles/Vol] 11 mmol/L Normal 6-16 [facility] Comment on above: Performed By: #### 2 533760, 3103679, 0218361, 532406834, 31819786 ####[facility] [address] [place] [address] Calcium [Mass/Vol] 8.9 mg/dL Normal 8.9-11.1 [facility] Comment on above: Performed By: #### 2 967057, 8263178, 3149083, 125514486, 91512022 ####[facility] [address] [place] [address] Chloride [Moles/Vol] 112 mmol/L High 101-111 [facility] Comment on above: Performed By: #### 2 038305, 1069146, 1049130, 545721490, 89157313 ####[facility] [address] [place] [address] CO2 [Moles/Vol] 22 mmol/L Normal 21-31 [facility] Comment on above: Performed By: #### 2 590336, 3249456, 2994331, 735947965, 20649595 ####[facility] [address] [place] [address] Creatinine [Mass/Vol] 1.4 mg/dL High 0.5-1.3 [facility] Comment on above: Performed By: #### 2 711374, 8193366, 0559782, 320545767, 58466848 ####[facility] [address] [place] [address] Glucose [Mass/Vol] 102 mg/dL Normal 55-199 [facility] Comment on above: Result Comment: If t his glucose result represents a fasting glucose, interpretation should refer to the following reference range: 55-99 mg/dL Performed By: #### 2 691041, 9094467, 1392648, 307297215, 17969544 ####[facility] [address] [place] [address] Potassium [Moles/Vol] 4.0 mmol/L Normal 3.5-5.3 [facility] Comment on above: Performed By: #### 2 982007, 0794666, 7341997, 517878310, 77114813 ####[facility] [address] [place] [address] Sodium [Moles/Vol] 141 mmol/L Normal 135-145 [facility] Comment on above: Performed By: #### 2 782452, 9472976, 7936801, 950785490, 19360840 ####[facility] [address] [place] [address] Urea nitrogen [Mass/Vol] 36 mg/dL High 5-21 [facility] Comment on above: Performed By: #### 2 656418, 9875066, 6612549, 788197735, 74481737 ####[facility] [address] [place] [address] Urea nitrogen/Creatinine [Mass ratio] 26 No Units High 10-20 [facility] Comment on above: Performed By: #### 2 663808, 1983781, 7158392, 364993821, 42126172 ####[facility] [address] [place] [address] C Urineon 12-21-2022 Bacteria identified Cx Nom (U) Microbiology PROCEDURE: Urine Culture [R1] SOURCE: U Cath BODY SITE: COLLECTED DATE/TIME: 12/19/2022 22:25 EDT RECEIVED DATE/TIME: 12/19/2022 23:48 EDT START DATE/TIME: 12/19/2022 23:49 EDT FREE TEXT SOURCE: Nurys Tong MD, David Tong MD, David FINAL REPORTS Final Report [] Verified Date/Time: 12/21/2022 08:58 EDT >100,000 cfu/ml Escherichia coli SUSCEPTIBILITY RESULTS __ LEGEND: S=Susceptible, N/R=Not Reported, Blank=Data not available, or drug not advisable or tested, I=Intermediate, ESBL=Extended spectrum beta-lactamase, R=Resistant, TFG=Thymidine-dependent strain, ESTELA=Beta-lactamase positive, SILVIO=mcg/m;(mg/L), S*=Predicted susceptible interp, R*=Predicted resistant interp EC Antibiotic SILVIO Dilutn SILVIO Interp Amikacin <=16 S Ampicillin <=8 S Ampicillin/ <=8/4 S Sulbactam Aztreonam <=4 S Cefazolin <=2 S Cefepime <=2 S Cefoxitin <=8 S Ceftazidime <=1 S Ceftazidime/ <=8 S Avibactam Ceftriaxone <=1 S Ciprofloxacin <=1 S Ertapenem <=0.5 S Gentamicin <=4 S Levofloxacin <=2 S Meropenem <=1 S Nitrofurantoin <=32 S Piperacillin/ <=16 S Tazobactam Tetracycline <=4 S Tigecycline <=2 S Tobramycin <=4 S Trimethoprim/ <=2/38 S Sulfa Performing Locations R1: This test was performed at: [facility], [address] [place] [address], [address]- , , Normal [facility] Comment on above: Performed By: #### 1 8059230, 9493262, 9459065, 7783181, 1891572, 98034731, 4847855, 95659498 #### [facility] [address] [place] [address] CBC w/ Auto Diffon 3 Erythrocyte distribution width (RBC) [Ratio] 18.4 % High 10.9-14.2 [facility] Comment on above: Performed By: #### 2 309997, 9035129, 1023436, [id number], 92603964 ####[address] [place] [address] Hematocrit (Bld) [Volume fraction] 26.8 % Low 34.0-46.0 [facility] Comment on above: Performed By: #### 2 581491, 4743454, 2790353, 597891786, 84243873 ####[facility] [address] [place] [address] Hemoglobin (Bld) [Mass/Vol] 9.3 g/dL Low 12.0-16.0 [facility] Comment on above: Performed By: #### 2 577265, 7804837, 7875927, 647371662, 67648289 ####[facility] [address] [place] [address] MCH (RBC) [Entitic mass] 34.3 pg High 27.0-34.0 [facility] Comment on above: Performed By: #### 2 628881, 5281275, 5893339, 803444350, 30659051 ####[address] [address] MCHC (RBC) [Mass/Vol] 34.8 g/dL Normal 31.4-36.0 [facility] Comment on above: Performed By: #### 2 405884, 7033470, 8306604, 485472461, 10221043 ####[address] [address] MCV (RBC) [Entitic vol] 98.6 fL Normal 80.0-100.0 F [facility] Comment on above: Performed By: #### 2 750429, 7927388, 4135402, 042655085, 41467849 ####[address] [address] Platelet mean volume (Bld) [Entitic vol] 6.8 fL Normal 6.4-10.8 [facility] Comment on above: Performed By: #### 2 056659, 7779436, 0969247, 483916728, 68674366 ####[address] [address] Platelets (Bld) [#/Vol] 201.0 E9/L Normal 150. 0-500. 0 [facility] Comment on above: Performed By: #### 2 010663, 3540007, 5871610, 460418592, 84028825 ####[address] [address] RBC (Bld) [#/Vol] 2.7 E12/L Low 4.3-5.9 [facility] Comment on above: Performed By: #### 2 618284, 7742558, 1418999, 299896084, 10512244 ####[facility] [address] [place] [address] WBC corrected for nucl RBC Auto (Bld) [#/Vol] 3.3 E9/L Low 4.0-11.0 [facility] Comment on above: Performed By: #### 2 250110, 3110681, 4274758, 794593370, 29735462 ####[facility] [address] [place] [address] CHEMISTRYOrdered By: GuideIT SYSTEM on 12-21-2022 Anion gap [Moles/Vol] 11 [...] 40 mL/min/1.73 m2 Low >=59mL/min /1.73 m2 [facility] Chem S Glucose [Mass/Vol] 102 mg/dL Normal 55 - 199 mg/dL [facility] Potassium [Moles/Vol] 4.0 mmol/L Normal 3.5 - 5.3 mmol/L [facility] Remisol Sodium [Moles/Vol] 141 mmol/L Normal 135 - 145 mmol/L [facility] Urea nitrogen [Mass/Vol] 36 mg/dL High 5 - 21 mg/dL [facility] Urea nitrogen/Creatinine [Mass ratio] 26 mg/mg High 10 - 20 [facility] Remisol CHEMISTRYOrdered By: Gavino Lyle on 12-21-2022 HbA1c (Bld) [Mass fraction] 7.1 % High <=5.9% [facility] ChemAutoSS Capillary Glucose POCon Glucose [Mass/Vol] 127 mg/dL High [address] [place] [address] Comment on above: Result Comment: Navin BOSE Performed By: #### 2 [id number] ####[facility] [address] [place] [address] Glucose [Mass/Vol] 160 mg/dL High -[address] [place] [address] Comment on above: Result Comment: Navin BOSE Performed By: #### 2 [id number] ####[facility] [address] [place] [address] Glucose [Mass/Vol] 132 mg/dL High [address] [place] [address] Comment on above: Result Comment: Navin BOSE Performed By: #### 1 [id number], 2514119, 6933111, 4428192, 1931110, 15706005, 6116231, 46181474 #### [facility] [address] [place] [address] Glucose [Mass/Vol] 115 mg/dL High [address] [place] [address] Comment on above: Result Comment: Navin BOSE Performed By: #### 2 [id number] ####[facility] [address] [place] [address] HEMATOLOGYOrdered By: SYSTEM SYSTEM on 12-21-2022 Basophils/100 WBC (Bld) 2.6 % High 0.0 - 2.0 % [employer] [facility] [employer] HemeAutoSS Basophils/Leukocytes Auto (Bld) [Pure # fraction] 0.1 E9/L Normal 0.0 - 0.2 E9/L [facility] HemeAutoSS Eosinophils/100 WBC (Bld) 2.5 % Normal 0.0 - 8.0 % [facility] HemeAutoSS Eosinophils/Leukocytes Auto (Bld) [Pure # fraction] 0.1 E9/L Normal 0.0 - 0.5 E9/L [facility] HemeAutoSS Lymphocytes/100 WBC (Bld) 42.1 % Normal [...] 3.3 E9/L Low 4.0 - 11.0 E9/L [facility] HemeAutoSS SulI4fst 12-21-2022 HbA1c (Bld) [Mass fraction] 7.1 % High <=5.9 [facility] Comment on above: Performed By: #### 2 495288, 4128390, 1492819, [id number], [id number] ####[facility] [address] [place] [address] Insurance Correspondence Off iceon 12-21-2022 Insurance Correspondence Office [id number]#1.00CD:12 7 Normal [facility] 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 Note - Rafat n 12-21-2022 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 Note - OT OT AM-PAC 6 Clicks Score: = SNF. Pt completed sit to stand transfers using FWW with Max A x2. Pt was Max A to don brief and socks due to pain. Pt recently DC home from snf with her who she is the primary caregiver for. Barriers to complete functional ADL tasks are weakness, pain, and confusion. SNF recommended for DC to maximize Pt's independence and safety with self care tasks and transfers. Normal [facility] 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 Note - Soc ial Workeron 12-21-2022 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 Note - [employer] Counselor This SW responded to a consult on regarding Advanced Directives. SW assisted with explanation of the AD documentation. Patient stated that she never mentioned wanting to complete an AD nor is she interested in completing one now. Patient stated that it sounds like something her daughter said and herself. SW provided the patient with her contact information if she decides to want to complete this documentation while admitted to the hospital or once discharged. Patient denied any further needs at this time. SW will remain available as needed. Normal [facility] Message from Medicareon Message from Medicare [id number]#1.00CD:12 7 Normal [facility] Progress Note-Physicianon Progress Note-Physician Assessment/Plan 1. UTI (urinary tract infection) (N39.0: Urinary tract infection, site not specified) ? Urine culture positive for E. coli, pansensitive ? We will continue Keflex as patient tolerated in the past ? We will continue to monitor for signs of improvement Ordered: Initial Hospital Care/Day Moderate 55 Minutes 70715 Sbsq Hospital Care/Day Straight Fwd 25 Minutes 60670 2. Age-related cognitive decline (R41.81: Age-related cognitive decline) ? PT/OT ? Monitor labs IV fluids Likely will need placement as it was already attempted by nurse at Dr. Askew's office 3. History of breast cancer (Z85.3: Personal history of malignant neoplasm of breast) ? Continue [facility] ?Patient follows with Dr. Hernandez as outpatient 4. HTN (hypertension) (I10: Essential (primary) hypertension) ? Monitor ? Continue lisinopril 10 mg 5. Hypercholesteremia (E78.00: Pure hypercholesterolemia, unspecified) ? Continue statin Orders: heparin, 5,000 unit(s) = [...] Resuscitation Status - Full Vital Signs Weight Subjective Patient seen and examined. No acute events overnight. Patient denies any chest pain, fever chills, nausea vomiting diarrhea or other symptoms at this time. Objective Vitals & Measurements T: 36.8 ?C(Axillary) TMIN: 36.4 ?C(Axillary) TMAX: 37.0 ?C(Oral) HR: 61(Monitored) RR: 16 BP: 113/71 SpO2: 98% HT: 167.64 cm WT: 86.4 kg Intake & Output This visit (24 hour periods starting at 07:00 EDT) 12/21/22 * 12/20/22 12/19/22 Total Summary Intake mL -- 1,003.28 -- Output mL -- -- -- Fluid Balance -- 1,003.28 -- Intake (2) Oral Intake mL -- 200 -- Sodium Chloride 0.9% intravenous solution 1,000 mL mL -- 803.28 -- Total -- 1,003.28 -- Output (0) Counts (1) Urine Count -- 1 -- * This column has not completed the indicated time period. Physical Exam General: Looks well, no acute distress, well-nourished, obese Skin: Warm, dry Head: No trauma, normocephalic Neck: Trachea midline, supple, negative for JVD Eye: Conjunctive are clear, clear sclera , EOMI ENMT: oral mucosa moist, no lesions or edema nose or external ears Cardiovascular: Regular rate and rhythm, S1-S2 present, negative for murmurs rubs or gallops Respiratory: Lungs clear to auscultation, bilateral symmetric movement, negative for wheezes rales or rhonchi Chest wall: no deformity. Gastrointestinal: Abdomen soft, nontender to palpation, bowel sounds present Back: No tenderness Extremities: Range of motion intact, no edema Neurological: awake, alert, speech normal, cranial nerves II through XII intact, no sensory defects, alert and oriented x3 Psychiatric: cooperative, affect appropriate for age, pleasant Lab Results WBC: 3.3 E9/L Low (12/21/22 06:07:00) RBC: 2.7 E12/L Low (12/21/22 06:07:00) HGB: 9.3 gm/dL Low (12/21/22 06:07:00) Hct: 26.8 % Low (12/21/22 06:07:00) MCV: 98.6 fL (12/21/22 06:07:00) MCH: 34.3 pg High (12/21/22 06:07:00) MCHC: 34.8 gm/dL (12/21/22 06:07:00) RDW: 18.4 % High (12/21/22 06:07:00) Platelet: 201 E9/L (12/21/22 06:07:00) MPV: 6.8 fL (12/21/22 06:07:00) Neutro Auto: 39.2 % (12/21/22 06:07:00) Lymph Auto: 42.1 % (12/21/22 06:07:00) Summers Auto: 13.6 % (12/21/22 06:07:00) Eos Auto: 2.5 % (12/21/22 06:07:00) Basophil Auto: 2.6 % High (12/21/22 06:07:00) Neutro Absolute: 1.3 E9/L Low (12/21/22 06:07:00) Lymph Absolute: 1.4 E9/L (12/21/22 06:07:00) Summers Absolute: 0.4 E9/L (12/21/22 06:07:00) Eos Absolute: 0.1 E9/L (12/21/22 06:07:00) Basophil Absolute: 0.1 E9/L (12/21/22 06:07:00) Glucose Lvl: 102 mg/dL (12/21/22 06:07:00) BUN: 36 mg/dL High (12/21/22 06:07:00) Creatinine: 1.4 mg/dL High (12/21/22 06:07:00) eGFR: 40 mL/min/1.73 m2 Low (12/21/22 06:07:00) BUN/Creat Ratio: 26 High (12/21/22 06:07:00) Sodium Lvl: 141 mmol/L (12/21/22 06:07:00) Potassium Lvl: 4 mmol/L (12/21/22 06:07:00) Chloride: 112 mmol/L High (12/21/22 06:07:00) CO2: 22 mmol/L (12/21/22 06:07:00) AGAP: 11 mEq/L (12/21/22 06:07:00) Calcium Lvl: 8.9 mg/dL (12/21/22 06:07:00) Alk Phos: 101 Int._Unit/L High (12/20/22 15:45:00) ALT: 20 Int._Unit/L (12/20/22 15:45:00) AST: 18 Int._Unit/L (12/20/22 15:45:00) Total Protein: 7.3 gm/dL (12/20/22 15:45:00) Albumin Lvl: 3.5 gm/dL (12/20 (more content not included)... Normal [facility] Comment on above: Result Comment: Elec tronically Signed By: Zaheer Sloan DO.johnnie\Date and Time Signed: 12/21/22 14:15 EDT eGFRon 12-21-2022 GFR/1.73 sq M.predicted among non-blacks MDRD (S/P/Bld) [Vol rate/Area] 40 mL/min/1.73 m2 Low >=59 [facility] Comment on above: Order Comment: Order added by Discern Expert. Result Comment: Rebar Bender aubrey kidney disease could be indicated at eGFR's of less than 60 mL/min/1.73m2. Kidney failure is indicated at less than 15 mL/min/1.73m2. Performed By: #### 2 448676, 7466562, 9788895, [id number], [id number] ####[facility] [address] [place] [address] Auto Diffon 12-20-2022 Basophils/100 WBC (Bld) 3.5 % High 0.0-2.0 [facility] Comment on above: Order Comment: Order Added by Discern Expert. Performed By: #### 1 [id number], 6141544, 2770008, 6641871, 0329715, 61544512, 3397900, 63785065 #### [facility] [address] [place] [address] Basophils/Leukocytes Auto (Bld) [Pure # fraction] 0.1 E9/L Normal 0.0-0.2 [facility] Comment on above: Order Comment: Order Added by Discern Expert. Performed By: #### 1 [id number], 0910572, 6422106, 5231550, 7146261, 75627845, 9539620, 05556939 #### [facility] [address] [place] [address] Eosinophils/100 WBC (Bld) 1.3 % Normal 0.0-8.0 [facility] Comment on above: Order Comment: Order Added by Faviola Expert. Performed By: #### 1 1862124, 0351970, 8719200, 9669283, 1307462, 41309558, 8011076, 78063625 #### [facility] [address] [place] [address] Eosinophils/Leukocytes Auto (Bld) [Pure # fraction] 0.0 E9/L Normal 0.0-0.5 [facility] Comment on above: Order Comment: Order Added by Discern Expert. Performed By: #### 1 7352310, 0080351, 9675249, 8332766, 5180898, 24647849, 5863502, 36466135 #### [facility] [address] [place] [address] Lymphocytes/100 WBC (Bld) 28.4 % Normal 14.0-50.0 [facility] Comment on above: Order Comment: Order Added by Discern Expert. Performed By: #### 1 3295098, 8885474, 2973398, 4138682, 4085240, 50012530, 1957345, 08447015 #### [facility] [address] [place] [address] Lymphocytes/Leukocytes Auto (Bld) [Pure # fraction] 1.1 E9/L Normal 1.0-4.0 [facility] Comment on above: Order Comment: Order Added by Discern Expert. Performed By: #### 1 4546321, 9717198, 7094137, 2948963, 1169669, 57726064, 8422211, 08247238 #### [facility] [address] [place] [address] Monocytes/100 WBC (Bld) 12.5 % Normal 4.0-14.0 [facility] Comment on above: Order Comment: Order Added by Discern Expert. Performed By: #### 1 7923545, 2256989, 7427040, 9472490, 8347863, 20936085, 3335852, 56365366 #### [facility] [address] [place] [address] Monocytes/Leukocytes Auto (Bld) [Pure # fraction] 0.5 E9/L Normal 0.2-1.0 [facility] Comment on above: Order Comment: Order Added by Discern Expert. Performed By: #### 1 2183885, 7088636, 8450435, 5165167, 2234576, 40364455, 5704118, 56844257 #### [facility] [address] [place] [address] Neutrophils/100 WBC (Bld) 54.3 % Normal 36.0-75.0 [facility] Comment on above: Order Comment: Order Added by Discern Expert. Performed By: #### 1 9505973, 2849687, 1043144, 7781326, 9300510, 50084846, 7534486, 01629372 #### [facility] [address] [place] [address] Neutrophils/Leukocytes Auto (Bld) [Pure # fraction] 2.1 E9/L Normal 2.0-7.5 [facility] Comment on above: Order Comment: Order Added by Discern Expert. Performed By: #### 1 7163185, 4783547, 7585464, 3776506, 7271833, 64444129, 3352220, 27194421 #### [facility] [address] [place] [address] [facility] 12-20-2022 Creatinine [Mass/Vol] 1.3 mg/dL Normal 0.5-1.3 [facility] Comment on above: Performed By: #### 1 3491412, 0061415, 7471704, 6691588, 4273992, 01760382, 7196689, 94892670 #### [facility] [address] [place] [address] Urea nitrogen [Mass/Vol] 36 mg/dL High 5-21 [facility] Comment on above: Performed By: #### 1 5525469, 7869778, 8506539, 6511828, 0301205, 38240832, 2765702, 00289864 #### [facility] [address] [place] [address] Urea nitrogen/Creatinine [Mass ratio] 28 No Units High 10-20 [facility] Comment on above: Performed By: #### 1 0913956, 6739758, 1708939, 4218271, 0612520, 32422657, 2658928, 78560550 #### [facility] [address] [place] [address] Anion gap [Moles/Vol] 13 mmol/L Normal 6-16 [facility] Comment on above: Performed By: #### 1 1824060, 7552224, 1045364, 7893869, 4101007, 43024860, 2650749, 62183866 #### [facility] [address] [place] [address] Calcium [Mass/Vol] 9.6 mg/dL Normal 8.9-11.1 [facility] Comment on above: Performed By: #### 1 7799144, 7103669, 2194320, 5685371, 0254001, 47874047, 5332244, 46604252 #### [facility] [address] [place] [address] Chloride [Moles/Vol] 108 mmol/L Normal 101-111 [facility] Comment on above: Performed By: #### 1 8382568, 9533161, 3794621, 0319159, 6283878, 59520811, 7075443, 42027658 #### [facility] [address] [place] [address] CO2 [Moles/Vol] 21 mmol/L Normal 21-31 [facility] Comment on above: Performed By: #### 1 7125931, 1254010, 8888906, 2484075, 4888808, 76150586, 3360769, 73092246 #### [facility] [address] [place] [address] Glucose [Mass/Vol] 136 mg/dL Normal 55-199 [facility] Comment on above: Result Comment: If t his glucose result represents a fasting glucose, interpretation should refer to the following reference range: 55-99 mg/dL Performed By: #### 1 6486284, 4455604, 2721080, 0089384, 5696807, 33105260, 0803312, 57604049 #### [facility] [address] [place] [address] Potassium [Moles/Vol] 4.2 mmol/L Normal 3.5-5.3 [facility] Comment on above: Performed By: #### 1 5554197, 5945762, 0826143, 4586667, 8956098, 64230860, 3941185, 96858044 #### [facility] [address] [place] [address] Sodium [Moles/Vol] 138 mmol/L Normal 135-145 [facility] Comment on above: Performed By: #### 1 5824324, 6193221, 3887930, 0270661, 5142806, 07452175, 9182783, 92380122 #### [facility] [address] [place] [address] CBC w/ Auto Diffon Erythrocyte distribution width (RBC) [Ratio] 19.0 % High 10.9-14.2 [facility] Comment on above: Performed By: #### 1 3250002, 9315978, 6986513, 7972425, 9816164, 14131288, 4380974, 31056618 #### [facility] [address] [place] [address] Hematocrit (Bld) [Volume fraction] 31.3 % Low 34.0-46.0 [facility] Comment on above: Performed By: #### 1 5816883, 2564753, 3332820, 4488364, 5101355, 33115375, 4233067, 25546297 #### [facility] [address] [place] [address] Hemoglobin (Bld) [Mass/Vol] 10.4 g/dL Low 12.0-16.0 [facility] Comment on above: Performed By: #### 1 8905303, 2575276, 5650992, 7424002, 9128705, 02561861, 2285792, 87304896 #### [facility] [address] [place] [address] MCH (RBC) [Entitic mass] 33.3 pg Normal 27.0-34.0 [facility] Comment on above: Performed By: #### 1 6295464, 2650182, 8427423, 2368510, 4582074, 60502559, 0844842, 46949533 #### [facility] [address] [place] [address] MCHC (RBC) [Mass/Vol] 33.3 g/dL Normal 31.4-36.0 [facility] Comment on above: Performed By: #### 1 9604284, 0544483, 1629183, 8682323, 7069513, 97428032, 0159845, 65918696 #### [facility] [address] [place] [address] MCV (RBC) [Entitic vol] 99.8 fL Normal 80.0-100.0 [facility] Comment on above: Performed By: #### 1 0717455, 8829521, 7292533, 5944463, 4376882, 47696737, 6394886, 59620007 #### [facility] [address] [place] [address] Platelet mean volume (Bld) [Entitic vol] 6.8 fL Normal 6.4-10.8 [facility] Comment on above: Performed By: #### 1 9893321, 4034890, 3290631, 6314023, 2228897, 39823262, 6373962, 74563952 #### [facility] [address] [place] [address] Platelets (Bld) [#/Vol] 212.0 E9/L Normal 150. 0-500. 0 [facility] Comment on above: Performed By: #### 1 4500027, 5130561, 4240475, 9384833, 0636105, 53886469, 4750550, 40363850 #### [facility] [address] [place] [address] RBC (Bld) [#/Vol] 3.1 E12/L Low 4.3-5.9 [facility] Comment on above: Performed By: #### 1 6395705, 0359960, 4189420, 1814726, 6879950, 02833513, 6375910, 70091740 #### [facility] [address] [place] [address] WBC corrected for nucl RBC Auto (Bld) [#/Vol] 3.9 E9/L Low 4.0-11.0 [facility] Comment on above: Performed By: #### 1 6721254, 1021174, 2938051, 6664720, 3943729, 04046663, 5146081, 65763269 #### [facility] [address] [place] [address] CHEMISTRYOrdered By: SYSTEM SYSTEM on 12-20-2022 Troponin [...] for Treatmenton 11-22 Consent for Treatment [id number]#1.00CD:12 7 Normal [facility] Consent for Treatment [id number]#1.00CD:1 27 Normal [facility] Discharge Instructionson Discharge Instructions [id number]#1.00CD:1 27 [facility] ED Clinical Summaryon 2022 ED Clinical Summary (Inserted Image. Belle ble to display) [place] [id number] ED Clinical Summary Person Information Name: MARLEN STALEY/Savita Age: 72 Years : 1950 Sex: Female Language: Martiniquais PCP: Rickey Askew MD Marital Status: Phone: [phone] MRN: Visit Id: Visit Reason: Dysuria; Weakness or fatigue; UTI Speciality: Acuity: 3 Enc Type: Inpatient Med Service: Medical Arrival: 12/20/2022 15:04:00 Discharge: LOS: 000 03:52 Checkin: 12/20/2022 15:04:00 Checkout: 12/20/2022 18:56:43 Dispo Type: Admitted as IP to this [facility] EVENTS: Event Name Event Status Request Date/Time Start Date/Time Complete Date/Time Arrive Complete 12/20/2022 15:04:00 12/20/2022 15:04:00 12/20/2022 15:04:00 Document Home Meds Request 12/20/2022 15:04:00 Triage Complete 12/20/2022 15:04:00 12/20/2022 15:11:10 12/20/2022 15:11:10 Bed Assign Complete 12/20/2022 15:05:51 12/20/2022 15:05:51 12/20/2022 15:05:51 Dr Exam Complete 12/20/2022 15:05:51 12/20/2022 15:31:32 12/20/2022 15:31:32 RN Exam Complete 12/20/2022 15:05:51 12/20/2022 15:15:39 12/20/2022 15:15:39 EKG Complete 12/20/2022 15:08:38 12/20/2022 15:22:18 Registration Complete 12/20/2022 15:16:01 12/20/2022 15:16:01 12/20/2022 15:16:01 Reg Complete Request 12/20/2022 15:16:01 Reg Bed Request Complete 12/20/2022 15:16:01 12/20/2022 15:16:01 12/20/2022 15:16:01 Registration Complete 12/20/2022 15:31:32 12/20/2022 18:11:39 12/20/2022 18:11:39 Meds Admin Request 12/20/2022 15:37:10 Pending Labs Inlab 12/20/2022 15:37:10 Lab Complete 12/20/2022 15:37:10 12/20/2022 17:37:29 Urine Collect Complete 12/20/2022 15:37:10 12/20/2022 17:37:29 X-Ray Complete 12/20/2022 15:37:10 12/20/2022 16:08:51 12/20/2022 16:16:58 Pending Labs Complete 12/20/2022 15:50:59 12/20/2022 15:50:59 12/20/2022 16:17:43 Lab Complete 12/20/2022 15:50:59 12/20/2022 15:50:59 12/20/2022 16:17:43 Pending Labs Complete 12/20/2022 15:56:46 12/20/2022 15:56:46 12/20/2022 15:56:55 Lab Complete 12/20/2022 15:56:46 12/20/2022 15:56:46 12/20/2022 15:56:55 Pending Labs Complete 12/20/2022 16:03:34 12/20/2022 16:03:34 12/20/2022 16:03:34 Wet Read Request 12/20/2022 16:16:58 Bed Request Request 12/20/2022 16:52:28 Reg Bed Request Complete 12/20/2022 16:52:28 12/20/2022 18:11:39 12/20/2022 18:11:39 Admit Request 12/20/2022 16:52:28 Pending Labs Complete 12/20/2022 17:12:34 12/20/2022 17:12:34 12/20/2022 17:12:34 Pending Labs Inlab 12/20/2022 17:30:13 12/20/2022 17:30:13 Lab Inlab 12/20/2022 17:30:13 12/20/2022 17:30:13 Patient Care Request 12/20/2022 18:11:40 Patient Care Request 12/20/2022 18:11:40 Patient Care Request 12/20/2022 18:11:40 Patient Care Request 12/20/2022 18:11:40 Patient Care Request 12/20/2022 18:34:27 Meds Admin Request 12/20/2022 18:34:27 Pending Labs Request 12/20/2022 18:34:55 Lab Request 12/20/2022 18:34:55 Meds Admin Request 12/20/2022 18:40:53 Patient Care Request 12/20/2022 18:52:04 ADDRESS: [address] [place] [address] DR ELIZONDO [place] [id number] PHYS DOC NOTES: MEDICAL INFORMATION: Prescriptions Given: Medications to Continue with No Changes Other Medications acetaminophen (acetaminophen 500 mg Tab) 2 Tablets By Mouth every 6 hours. anastrozole (anastrozole 1 mg Tab) 1 Tablets By Mouth every day. Refills: 11. cephalexin (Keflex 500 mg Cap) 1 Capsules By Mouth 4 times a day for 7 Days. Refills: 0. cholecalciferol (Vitamin D3 2000 intl units oral tablet) 1 Tablets By Mouth every day. Refills: 4. cyanocobalamin (Vitamin B12 1000 mcg Tab) 1 Tablets By Mouth every day. Refills: 11. lisinopril (lisinopril 10 mg Tab) 1 Tablets By Mouth every day. melatonin (melatonin 5 mg oral tablet) 1 Tablets By Mouth once a day (at bedtime) as needed for insomnia. ribociclib (Kisqali (200 mg daily dose) oral tablet) 2 tab(s) take for 21 days, withhold for 7 days, then repeat cycle. 11 REFILLS. Refills: 1. simvastatin (simvastatin 40 mg Tab) 1 Tablets By Mouth once a day (at bedtime). PATIENT EDUCATION INFORMATION: Instructions: Follow up: DIAGNOSIS: 1:UTI (urinary tract infection); 2:Age-related cognitive decline; 3:History of breast cancer; 4:HTN (hypertension); 5:Hypercholesteremia Normal [facility] ED Clinical Summary (Inserted Image. Belle ble to display) [address] [address] ED Clinical Summary Person Information Name: MARLEN STALEY/Savita Age: 72 Years : 1950 Sex: Female Language: Martiniquais PCP: Rickey Askew MD Marital Status: Phone: [phone] MRN: Visit Id: Visit Reason: Medical problem - minor; Weakness or fatigue; WEAKNESS Speciality: Acuity: 3 Enc Type: Emergency Med Service: Emergency Arrival: 12/19/2022 20:39:01 Discharge: 12/20/2022 00:50:52 LOS: 000 04:11 Checkin: 12/19/2022 20:39:01 Checkout: 12/20/2022 00:50:52 Dispo Type: Home (Routine DC) EVENTS: Event Name Event Status Request Date/Time Start Date/Time Complete Date/Time Arrive Complete 12/19/2022 20:39:01 12/19/2022 20:39:01 12/19/2022 20:39:01 Document Home Meds Request 12/19/2022 20:39:01 Triage Complete 12/19/2022 20:39:01 12/19/2022 20:43:49 12/19/2022 20:43:49 Dr Exam Complete 12/19/2022 20:40:42 12/19/2022 20:40:42 12/19/2022 20:40:42 Registration Complete 12/19/2022 20:40:42 12/19/2022 20:41:14 12/19/2022 22:16:34 Bed Assign Complete 12/19/2022 20:41:14 12/19/2022 20:41:14 12/19/2022 20:41:14 RN Exam Complete 12/19/2022 20:41:14 12/19/2022 21:21:14 12/19/2022 21:21:14 EKG Complete 12/19/2022 20:42:11 12/19/2022 20:54:10 Pending Labs Request 12/19/2022 21:09:41 Lab Complete 12/19/2022 21:09:41 12/19/2022 22:36:05 Urine Collect Complete 12/19/2022 21:09:42 12/19/2022 22:36:05 Patient Care Request 12/19/2022 21:09:42 X-Ray Complete 12/19/2022 21:09:42 12/19/2022 21:20:49 12/19/2022 21:38:04 Pending Labs Complete 12/19/2022 21:20:46 12/19/2022 21:20:46 12/19/2022 21:49:34 Lab Complete 12/19/2022 21:20:46 12/19/2022 21:20:46 12/19/2022 21:49:34 Fall Risk Request 12/19/2022 21:21:15 Pending Labs Complete 12/19/2022 21:25:54 12/19/2022 21:25:54 12/19/2022 21:26:02 Lab Complete 12/19/2022 21:25:55 12/19/2022 21:25:55 12/19/2022 21:26:02 Wet Read Request 12/19/2022 21:38:04 Reg Complete Request 12/19/2022 22:16:34 Reg Bed Request Complete 12/19/2022 22:16:34 12/19/2022 22:16:34 12/19/2022 22:16:34 Pending Labs Inlab 12/19/2022 22:27:39 12/19/2022 22:27:39 Lab Inlab 12/19/2022 22:27:39 12/19/2022 22:27:39 Meds Admin Complete 12/19/2022 23:45:27 12/20/2022 00:44:23 Discharge Complete 12/20/2022 00:36:52 12/20/2022 00:50:56 12/20/2022 00:50:56 Transfer Complete 12/20/2022 00:50:56 12/20/2022 00:50:56 12/20/2022 00:50:56 ADDRESS: [address] [place] [address] [address] [place] [id number] PHYS DOC NOTES: MEDICAL INFORMATION: Prescriptions Given: New Medications [id number], [address] [place] [id number], [phone] cephalexin (Keflex 500 mg Cap) 1 Capsules By Mouth 4 times a day for 7 Days. Refills: 0. Medications to Continue with No Changes Other Medications acetaminophen (acetaminophen 500 mg Tab) 2 Tablets By Mouth every 6 hours. anastrozole (anastrozole 1 mg Tab) 1 Tablets By Mouth every day. Refills: 11. cholecalciferol (Vitamin D3 2000 intl units oral tablet) 1 Tablets By Mouth every day. Refills: 4. cyanocobalamin (Vitamin B12 1000 mcg Tab) 1 Tablets By Mouth every day. Refills: 11. lisinopril (lisinopril 10 mg Tab) 1 Tablets By Mouth every day. melatonin (melatonin 5 mg oral tablet) 1 Tablets By Mouth once a day (at bedtime) as needed for insomnia. oxycodone (oxyCODONE 5 mg Tab) 1 Tablets By Mouth every 6 hours for 3 Days. Refills: 0. ribociclib (Kisqali (200 mg daily dose) oral tablet) 2 tab(s) take for 21 days, withhold for 7 days, then repeat cycle. 11 REFILLS. Refills: 1. simvastatin (simvastatin 40 mg Tab) 1 Tablets By Mouth once a day (at bedtime). PATIENT EDUCATION INFORMATION: Instructions: Urinary Tract Infection, Adult, Afmw-oa-Dsmz; Anemia; Dehydration, Adult, Ywfx-rp-Izit Follow up: With: Address: When: Rickey Askew [facility] [place] [id number] [employer] (1) In 2 days 12/21/2022 DIAGNOSIS: 1:Generalized weakness; 2:Frequent falls; 3:Anemia; 4:Dehydration; 5:Urinary tract infection Normal [facility] ED Note-Physicianon 12-21-19 ED Note-Physician Basic Information Time Seen: Pedro Nava DO 12/20/2022 15:31 Chief Complaint Pt came in via [facility] for dysuria and weakness. Pt states she was here earlier and has only taken one of the ATBs. History of Present Illness 72-year-old female to the emergency department with chief complaint of unable to care for herself at home. Patient was seen last evening for UTI. She has had increasing confusion throughout the day. 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 Patient reports that her daughter wants her to go into a snf as they can no longer be cared for in the home. She has no complaints at this time. Review of Systems A 10 point review of systems is negative except as noted above. Medical and Surgical History: Reviewed and noted Social history: Lives at home Tobacco: Denies Physical Exam Vitals & Measurements T: 37.0 ?C(Oral) HR: 75(Peripheral) RR: 18 BP: 124/70 SpO2: 98% HT: 167.64 cm WT: 86.7 kg BMI: 30.85 VITALS: I have reviewed the triage vital signs. GENERAL: Disheveled, smells of urine NEURO: Alert and oriented x2. Moves all extremities. Face is symmetric and expressive. EYES: PERRL. No scleral icterus or conjunctival injection. No discharge. HENT: Normocephalic, atraumatic. Hearing is grossly intact. Nares grossly patent and without discharge. Mucous membranes moist. NECK: No JVD. Patient moves neck without restriction. CARDIO: Rhythm regular. Normal rate. No murmur, rub, or gallop. Pulses equal bilaterally in the upper and lower extremity. No lower extremity edema. PULM: Lungs clear to auscultation in all barcenas. No wheezes, rales, or rhonchi. No conversational dyspnea. No splinting, stridor, or accessory muscle use. GI/: Abdomen is soft and non-tender. Normoactive bowel sounds. EXTREMITIES: Symmetric muscle bulk. No joint swelling. No clubbing, cyanosis, or deformity. SKIN: Warm and dry. Normal turgor. No rash or lesions appreciated. PSYCH: Mood, affect, and interaction is appropriate to the setting. Medical Decision Making 72-year-old female to the emergency department with chief complaint of confusion, no longer able to care for self. Vital stable, the patient is afebrile. She is currently being treated for urinary tract infection. She was sent from primary care's office for placement. She is not safe to go home. Basic labs were ordered. Case was discussed the hospitalist who agreed to admit to his service. Assessment/Plan 1. UTI (urinary tract infection) (N39.0: Urinary [...] Reflex Urine Culture XR Chest Single View Medications Administered Given NS 1000 mL Soln-IV 1,000 mL, 1000 mL, IV Sodium Chloride 0.9% IV Billie 1000 mL 1,000 mL, 1000 mL, IV Disposition Plan Patient Discharge Condition Stable Discharge Disposition Admitted Discharge Prescription List Prescriptions Keflex 500 mg Cap, 500 mg= 1 cap(s), Oral, QID Follow-up No qualifying data available Problem List/Past Medical History Ongoing Age-related cognitive decline Axillary adenopathy Chronic edema Diabetes History of breast cancer History of healed fragility fracture HTN (hypertension) Hypercholesteremia Invasive ductal carcinoma of right breast Multiple closed fractures of pelvis with stable disruption of pelvic ring with routine healing, subsequent encounter Vitamin D deficiency Historical No qualifying data Procedure/Surgical History Core needle biopsy of breast (07/04/2021), Tonsillectomy and adenoidectomy. Medications Inpatient acetaminophen 325 mg Tab, 650 mg= 2 tab(s), Oral, q6hr, PRN heparin, 5000 unit(s)= 1 mL, SubCutaneous, q8hrFT NS 1000 mL Soln-IV 1,000 mL, 1000 mL, IV Sodium Chloride 0.9% IV Billie 1000 mL 1,000 mL, 1000 mL, IV Home acetaminophen 500 mg Tab, 1000 mg= 2 tab(s), Oral, q6hr anastrozole 1 mg Tab, 1 mg= 1 tab(s), Oral, Daily, 11 refills Keflex 500 mg Cap, 500 mg= 1 cap(s), Oral, QID Kisqali (200 mg daily dose) oral tablet, See Instructions, 1 refills lisinopril 10 mg Tab, 10 mg= 1 tab(s), Oral, Daily melatonin 5 mg oral tablet, 5 mg= 1 tab(s), Oral, Once a day (at bedtime), PRN simvastatin 40 mg Tab, 40 mg= 1 tab(s), Oral, Once a day (at bedtime) Vitamin B12 1000 mcg Tab, 1000 mcg= 1 tab(s), Oral, Daily, 11 refills Vitamin D3 20 (more content not included)... Normal [facility] Comment on above: Result Comment: Elec tronically Signed By: Pedro Nava DO\.johnnie\Date and Time Signed: 12/20/22 19:22 EDT ED Note-Physician Basic Information Time Seen: David Tong MD 12/19/2022 20:40 Chief Complaint says she has been getting increasingly weaker. on wait list for [facility] History of Present Illness 72-year-old female presents by ambulance from home with a complaint of just generalized weakness. She states that this morning she was too weak to get out of bed on her own so she had to call the ambulance squad to assist her. Although she was able to function at home today she had to move rather slowly as she became exhausted very rapidly. She states that they did have dinner tonight they ordered a pizza that was delivered. She does not describe any pain associated with this. There is no vertiginous complaint. She does not feel like she is about to pass out she just feels exhausted. She lives with her and he has dementia. They are currently on the waiting list to be in assisted living at the [facility]. She does have a history of diabetes. She denies hypertension. She denies heart lung or renal disease. She does not believe she has ever had any abdominal surgery. She denies any chills or fever. There is no cough or shortness of breath. There is no nausea her appetite has been normal her bowel movements have been normal there have been no bloody stools or dark black stools. There is no pain or burning on urination. Review of Systems A 10 point review of systems is negative except as noted above. Medical and Surgical History: Reviewed and noted Social history: Lives at home Tobacco: Denies Physical Exam Vitals & Measurements T: 36.8 ?C(Oral) HR: 72(Monitored) RR: 16 BP: 135/83 SpO2: 98% HT: 167.64 cm WT: 87.1 kg BMI: 30.99 This is a pleasant overweight 72-year-old she is alert and oriented x3 skin is warm and dry color is pink on room air. Conjunctiva is pink oral mucosa is moist. The heart is regular somewhat distant but without murmur gallop or rub. Lungs show good air entry there are no adventitious sounds. The abdomen is obese but soft and nontender. She does have some bruising and slight tenderness in the right arm. No significant edema no redness or increased warmth in the legs feet or ankles. No lesions about the feet or ankles suggestive of diabetic foot disease. Medical Decision Making This patient was here on December 17 after a fall with a diagnosis of compression fracture. An offer of admission was made at that time. The patient refused. I explained to the patient again today that we have adequate reason to admit her to the hospital because of the weakness and the new compression fracture. We also discussed the possibility of a urinary tract infection. She states that she does not want to be admitted to the hospital she wants to go home. We will take advantage of the time of arranging a ride home to give her some IV fluids to correct her dehydration and also start antibiotics directed towards a possible urinary tract infection. Assessment/Plan 1. Generalized weakness (R53.1: Weakness) 2. Frequent falls (R29.6: Repeated falls) 3. Anemia (D64.9: Anemia, unspecified) 4. Dehydration (E86.0: Dehydration) 5. Urinary tract infection (N39.0: Urinary tract infection, site not specified) Orders: cephalexin, 500 mg = 1 cap(s), Oral, QID, X 7 day(s), # 28 cap(s), Refills(s) 0, Pharmacy: [facility], 167.6, cm, 12/19/22 20:43:00 EDT, Height/Length [...] Reflex Urine Culture XR Chest Single View Disposition Plan Patient Discharge Condition Unchanged Discharge Disposition Home Discharge Prescription List Prescriptions Keflex 500 mg Cap, 500 mg= 1 cap(s), Oral, QID Follow-up With When Contact Information Rickey Askew In 2 days 12/21/2022 EDT [address] [place], [place] [id number] (1) Additional Instructions: Patient Education Urinary Tract Infection, Adult, Zhwb-nb-Ehmf Anemia Dehydration, Adult, Dbbw-ly-Ehse Problem List/Past Medical History Ongoing Age-related cognitive decline Axillary adenopathy Chronic edema Diabetes History of breast cancer History of healed fragility fracture HTN (hypertension) Hypercholesteremia Invasive ductal carcinoma of right breast Multiple closed fractures of pelvis with stable disruption of pelvic ring with routine healing, subsequent encounter Vitamin D deficiency Historical No qualifying data Procedure/Surgical (more content not included)... Normal [facility] Comment on above: Result Comment: Elec tronically Signed By: Ran HANKS, David\.br\Date and Time Signed: 12/20/22 00:40 EDT ED Patient Education Noteon 12-20-2022 ED Patient Education Note Normal [facility] ED Patient Education Note Hematology Anemia Anemia is a condition in which there is not enough red blood cells or hemoglobin in the blood. Hemoglobin is a substance in red blood cells that carries oxygen. When you do not have enough red blood cells or hemoglobin (are anemic), your body cannot get enough oxygen and your organs may not work properly. As a result, you may feel very tired or have other problems. What are the causes? Common causes of anemia include: ? Excessive bleeding. Anemia can be caused by excessive bleeding inside or outside the body, including bleeding from the intestines or from heavy menstrual periods in females. ? Poor nutrition. ? Long-lasting (chronic) kidney, thyroid, and liver disease. ? Bone marrow disorders, spleen problems, and blood disorders. ? Cancer and treatments for cancer. ? HIV (human immunodeficiency virus) and AIDS (acquired immunodeficiency syndrome). ? Infections, medicines, and autoimmune disorders that destroy red blood cells. What are the signs or symptoms? Symptoms of this condition include: ? Minor weakness. ? Dizziness. ? Headache, or difficulties concentrating and sleeping. ? Heartbeats that feel irregular or faster than normal (palpitations). ? Shortness of breath, especially with exercise. ? Pale skin, lips, and nails, or cold hands and feet. ? Indigestion and nausea. Symptoms may occur suddenly [...] of your bleeding. Other tests may include: ? Imaging tests, such as a CT scan or MRI. ? A procedure to see inside your esophagus and stomach (endoscopy). ? A procedure to see inside your colon and rectum (colonoscopy). How is this treated? Treatment for this condition depends on the cause. If you continue to lose a lot of blood, you may need to be treated at a hospital. Treatment may include: ? Taking supplements of iron, vitamin B12, or folic acid. ? Taking a hormone medicine (erythropoietin) that can help to stimulate red blood cell growth. ? Having a blood transfusion. This may be needed if you lose a lot of blood. ? Making changes to your diet. ? Having surgery to remove your spleen. Follow these instructions at home: ? Take orfs-hss-jlwktye and prescription medicines only as told by your health care provider. ? Take supplements only as told by your health care provider. ? Follow any diet instructions that you were given by your health care provider. ? Keep all follow-up visits as told by your health care provider. This is important. Contact a health care provider if: ? You develop new bleeding anywhere in the body. Get help right away if: ? You are very weak. ? You are short of breath. ? You have pain in your abdomen or chest. ? You are dizzy or feel faint. ? You have trouble concentrating. ? You have bloody stools, black stools, or tarry stools. ? You vomit repeatedly or you vomit up blood. These symptoms may represent a serious problem that is an emergency. Do not wait to see if the symptoms will go away. Get medical help right away. Call your local emergency services (911 in the [place] Do not drive yourself to the hospital. Summary ? Anemia is a condition in which you do not have enough red blood cells or enough of a substance in your red blood cells that carries oxygen (hemoglobin). ? Symptoms may occur suddenly or develop slowly. ? If your anemia is mild, you may not have symptoms. ? This condition is diagnosed with blood tests, a medical history, and a physical exam. Other tests may be needed. ? Treatment for this condition depends on the cause of the anemia. This information is not intended to replace advice given to you by your health care provider. Make sure you discuss any questions you have with your health care provider. Document Revised: 02/20/2022 Document Reviewed: 03/15/2020 [employer] Patient Education ? 2022 [employer]. Nutrition Dehydration, Adult Dehydration is condition in which [...] causes? This condition may be caused by: ? Conditions that cause loss of water or other fluids, such as: ? Watery poop (diarrhea). ? Vomiting. ? Sweating a lot. ? Peeing (urinating) a lot. (more content not included)... Normal [facility] ED Patient Summaryon 023 ED Patient Summary (Inserted Image. Belle ble to display) [address] [address] Patient Discharge Instructions Person Information Name: MARLEN STALEY Age: 72 Years Arrival Date: 12/20/2022 15:04:00 Discharge Diagnosis: 1:UTI (urinary tract infection); 2:Age-related cognitive decline; 3:History of breast cancer; 4:HTN (hypertension); 5:Hypercholesteremia Primary Care Physician: Rickey Askew MD Provider Information Primary Provider: Pedro Nava DO [employer] A Class:None The exam and treatment you received in the Emergency Department were for an urgent problem and are not intended as complete care. It is important that you follow up with a doctor, nurse practitioner, or physician?s assistant womens volleyball coach for ongoing care. If your symptoms become worse or you do not improve as expected and you are unable to reach your usual health care provider, you should return to the Emergency Department. We are available 24 hours a day. MARLEN STALEY has been given the following list of patient education materials, prescriptions and follow-up instructions: Follow-up Instructions: In the event that this physician does not participate in your insurance network, please consult with your insurance company to find a nearby participating provider. Patient Education Materials: A MESSAGE TO ALL PATIENTS REGARDING OPIOIDS PRESCRIPTION OPIOIDS: WHAT YOU NEED TO KNOW Prescription opioids can be used to help relieve mkxaxepe-ec-rxkqpj pain and are often prescribed following a surgery or injury, or for certain health conditions. These medications can be an important part of the treatment but also come with serious risks. It is important to work with your healthcare provider to make sure you are getting the safest, most effective care. WHAT ARE THE RISKS AND SIDE EFFECTS OF OPIOID USE? Prescription opioids carry serious risks of addiction and overdose, especially with prolonged use. An opioid overdose, often marked by slowed breathing, can cause sudden . The use of prescription opioids can have a number of side effects as well, even when taken as directed: ? Tolerance?meaning you might need to take more of the medication for the same pain relief ? Physical dependence?meaning you have symptoms of withdrawal when a medication is stopped ? Increased sensitivity to pain ? Constipation ? Nausea, vomiting, and dry mouth ? Sleepiness and dizziness ? Confusion ? Depression ? Low levels of testosterone that can result in lower sex drive, energy, and strength ? Itching and sweating RISKS ARE GREATER WITH: ? History of drug misuse, substance use disorder, or overdose ? Mental health conditions (such as depression or anxiety) ? Sleep apnea ? Older age (65 years and older) ? Avoid alcohol while taking prescription opioids. Also, unless specifically advised by your health care provider, medications to avoid include: ? Benzodiazepines (such as Xanax or Valium) ? Muscle relaxants (such as Soma or Flexeril) ? Hypnotics (such as Ambien or Lunesta) ? Other prescription opioids KNOW YOUR OPTIONS Talk to your health care provider about ways to manage your pain that don?t involve prescription opioids. Some of these options may actually work better and have fewer risks and side effects. Options may include: ? Pain relievers such as acetaminophen, ibuprofen, and naproxen ? Some medication that are also used for depression or seizures ? Physical therapy and exercise ? Cognitive behavioral therapy, a psychological, goal-directed approach, in which patients learn how to modify physical, behavioral, and emotional triggers of pain and stress. IF YOU ARE PRESCRIBED OPIOIDS FOR PAIN: ? Never take opioids in greater amounts or more often than prescribed. ? Follow up with your primary health care provider. o Work together to create a plan on how to manage your pain. o Talk about ways to help manage your pain that don?t involve prescription opioids. o Talk about any and all concerns and side effects. ? Help prevent misuse and abuse o Never sell or share prescription opioids. o Never use another person?s prescription opioids. ? Store prescription opioids in a secure place and out of reach of others (this may include visitors, children, friends, and family). ? Safely dispose of unused prescription opioids: Find your community drug take-back program or your pharmacy mail-back program, or flush them down the toilet, following guidance from the Food and Drug Administration (www.fda.gov/Drugs/Resour cesForYou). ? Visit www.cdc.gov/drugoverdose to learn about the risks of opioids abuse and overdose. ? If you believe you may be struggling with addiction, tell your health healthcare representative and ask for guidance or call SAMHSA?S National Helpline at 4-245-738-HELP. v Source: [place] Department of Health and Human Services/Center for Diseas (more content not included)... Normal [facility] ED Patient Summary (Inserted Image. Belle ble to display) [address] [address] Patient Discharge Instructions Person Information Name: MARLEN STALEY Age: 72 Years Arrival Date: 12/19/2022 20:39:01 Discharge Diagnosis: 1:Generalized weakness; 2:Frequent falls; 3:Anemia; 4:Dehydration; 5:Urinary tract infection Primary Care Physician: Rickey Askew MD Provider Information Primary Provider: David Tong MD [employer] A Class:None The exam and treatment you received in the Emergency Department were for an urgent problem and are not intended as complete care. It is important that you follow up with a doctor, nurse practitioner, or physician?s assistant womens volleyball coach for ongoing care. If your symptoms become worse or you do not improve as expected and you are unable to reach your usual health care provider, you should return to the Emergency Department. We are available 24 hours a day. DAVID MARLEN has been given the following list of patient education materials, prescriptions and follow-up instructions: Follow-up Instructions: With: Address: When: Rickey [place] [place] [address] Business (1) In 2 days 12/21/2022 In the event that this physician does not participate in your insurance network, please consult with your insurance company to find a nearby participating provider. Patient Education Materials: Urinary Tract Infection, Adult, Plti-vv-Palm; Anemia; Dehydration, Adult, Dfny-is-Dpsd A MESSAGE TO ALL PATIENTS REGARDING OPIOIDS PRESCRIPTION OPIOIDS: WHAT YOU NEED TO KNOW Prescription opioids can be used to help relieve regwshdx-ba-pzadci pain and are often prescribed following a surgery or injury, or for certain health conditions. These medications can be an important part of the treatment but also come with serious risks. It is important to work with your healthcare provider to make sure you are getting the safest, most effective care. WHAT ARE THE RISKS AND SIDE EFFECTS OF OPIOID USE? Prescription opioids carry serious risks of addiction and overdose, especially with prolonged use. An opioid overdose, often marked by slowed breathing, can cause sudden . The use of prescription opioids can have a number of side effects as well, even when taken as directed: ? Tolerance?meaning you might need to take more of the medication for the same pain relief ? Physical dependence?meaning you have symptoms of withdrawal when a medication is stopped ? Increased sensitivity to pain ? Constipation ? Nausea, vomiting, and dry mouth ? Sleepiness and dizziness ? Confusion ? Depression ? Low levels of testosterone that can result in lower sex drive, energy, and strength ? Itching and sweating RISKS ARE GREATER WITH: ? History of drug misuse, substance use disorder, or overdose ? Mental health conditions (such as depression or anxiety) ? Sleep apnea ? Older age (65 years and older) ? Avoid alcohol while taking prescription opioids. Also, unless specifically advised by your health care provider, medications to avoid include: ? Benzodiazepines (such as Xanax or Valium) ? Muscle relaxants (such as Soma or Flexeril) ? Hypnotics (such as Ambien or Lunesta) ? Other prescription opioids KNOW YOUR OPTIONS Talk to your health care provider about ways to manage your pain that don?t involve prescription opioids. Some of these options may actually work better and have fewer risks and side effects. Options may include: ? Pain relievers such as acetaminophen, ibuprofen, and naproxen ? Some medication that are also used for depression or seizures ? Physical therapy and exercise ? Cognitive behavioral therapy, a psychological, goal-directed approach, in which patients learn how to modify physical, behavioral, and emotional triggers of pain and stress. IF YOU ARE PRESCRIBED OPIOIDS FOR PAIN: ? Never take opioids in greater amounts or more often than prescribed. ? Follow up with your primary health care provider. o Work together to create a plan on how to manage your pain. o Talk about ways to help manage your pain that don?t involve prescription opioids. o Talk about any and all concerns and side effects. ? Help prevent misuse and abuse o Never sell or share prescription opioids. o Never use another person?s prescription opioids. ? Store prescription opioids in a secure place and out of reach of others (this may include visitors, children, friends, and family). ? Safely dispose of unused prescription opioids: Find your community drug take-back program or your pharmacy mail-back program, or flush them down the toilet, following guidance from the Food and Drug Administration (www.fda.gov/Drugs/Resour cesForYou). ? Visit www.cdc.gov/drugoverdose to learn about the risks of opioids abuse and overdose. ? If you believe you may be struggling with addiction, tell your health care (more content not included)... Normal [facility] HEMATOLOGYOrdered By: SYSTEM SYSTEM on 12-20-2022 Basophils/100 WBC (Bld) 3.5 % High 0.0 - 2.0 % [facility] HemeAutoSS Basophils/Leukocytes Auto (Bld) [Pure # fraction] [...] 3.1 E12/L Low 4.3 - 5.9 E12/L [facility] [employer] HemeAutoSS WBC corrected for nucl RBC Auto (Bld) [#/Vol] 3.9 E9/L Low 4.0 - 11.0 E9/L [facility] HemeAutoSS Hep Func Panelon 12-20-2022 Bilirubin.direct [Mass/Vol] 0.1 mg/dL Normal 0.1-0.4 [facility] Comment on above: Performed By: #### 1 3507496, 7186774, 6925526, 4372755, 5570694, 19001970, 6751666, 09411195 #### [facility] [address] [place] [address] Bilirubin.indirect [Mass or moles/Vol] 0.8 mg/dL Normal 0.1-0.9 [facility] Comment on above: Performed By: #### 1 5246956, 6356904, 5188795, 2465536, 0931593, 96136404, 5097512, 29091167 #### [facility] [address] [place] [address] Albumin [Mass/Vol] 3.5 g/dL Normal 3.3-5.0 [facility] Comment on above: Performed By: #### 1 8936676, 7394745, 0904216, 4827441, 0724874, 16116916, 7488596, 06180370 #### [facility] [address] [place] [address] Albumin/Globulin (S) [Mass conc ratio] 0.9 Low 1.1-2.2 [facility] Comment on above: Performed By: #### 1 2686890, 1640585, 8184639, 6804876, 2252712, 00621652, 8813673, 20885009 #### [facility] [address] [place] [address] ALP [Catalytic activity/Vol] 101 Int._Unit/L High 21-98 [facility] Comment on above: Performed By: #### 1 6897638, 8014080, 6982764, 3934322, 7681547, 29922834, 5433688, 50418233 #### [facility] [address] [place] [address] ALT No additional P-5'-P [Catalytic activity/Vol] 20 Int._Unit/L Normal 6-46 [facility] Comment on above: Performed By: #### 1 1335139, 7282670, 6490230, 2307489, 8754120, 29484281, 3230311, 93194659 #### [facility] [address] [place] [address] AST [Catalytic activity/Vol] 18 Int._Unit/L Normal 5-43 [facility] Comment on above: Performed By: #### 1 6225952, 8043158, 2686351, 9450739, 6897814, 11247392, 2311776, 35978236 #### [facility] [address] [place] [address] Bilirubin [Mass/Vol] 0.9 mg/dL Normal 0.0-1.1 [facility] Comment on above: Performed By: #### 1 6770368, 5306000, 4355698, 6940053, 9382352, 57830038, 0644847, 08540884 #### [facility] [address] [place] [address] Globulin (S) [Mass/Vol] 3.8 g/dL Normal 1.4-4.0 [facility] Comment on above: Performed By: #### 1 0831017, 0775242, 5439473, 6576630, 7443371, 30033443, 3371484, 10494881 #### [facility] [address] [place] [address] Protein [Mass/Vol] 7.3 g/dL Normal 6.0-7.8 [facility] Comment on above: Performed By: #### 1 1595961, 4723472, 3120336, 3376557, 6854514, 45509784, 9763583, 77574751 #### [facility] [address] [place] [address] Laboratory - Microbiology an d Antimicrobial susceptibilityOrdered By: Ninfa Sawyer on 12-20-2022 Bacteria identified Cx Nom (U) 1,000 cfu/ml Mixed skin contaminants [facility] Monitor Recordon 12-20-2022 Monitor Record [id number]#1.00CD:1 27 Normal [facility] Monitor Record [id number]#1.00CD:1 27 Normal [facility] Pre-Arrival Noteon Pre-Arrival Note Pre-Arrival Summary Name: UTI, ncems Current Date: 12/20/2022 15:06:09 EDT Gender: Date of : Age: Pre-Arrival Type: EMS ETA: 12/20/2022 15:31:00 EDT Primary Care Physician: Presenting Problem: Pre-Arrival User: Delia Tsai RN Referring Source: Location: [place] Completion Date/Time: 12/20/2022 15:01:00 [facility] Emergency Department Pre-Hospital Report Form ____ Vital Signs: Pre-Hospital Report: Treatment in Route: Response to Treatment: Misc. Issues: Normal [facility] Troponin 0 Hr.on 12-20-2022 Troponin I.cardiac [Mass/Vol] 9.80 pg/mL Low 10.10-27.1 0 [facility] Comment on above: Result Comment: The 95% CI (Confidence Interval) PPV (Positive Predictive Value) for myocardial infarction in females is 38 pg/mL, in males 51 pg/mL. The results should be used in conjunction with clinical conditions of myocardial infarction. (Access High Sensitivity Troponin I Instructions For Use, Gaby Selma, November 2017) Performed By: #### 1 5789411, 8118876, 4758103, 2147645, 9103477, 16343921, 6842373, 88512703 #### [facility] [address] [place] [address] Troponin 3 Hr.on 12-20-2022 Troponin I.cardiac [Mass/Vol] 10.20 pg/mL Normal 10.10-27.1 0 [facility] Comment on above: Result Comment: The 95% CI (Confidence Interval) PPV (Positive Predictive Value) for myocardial infarction in females is 38 pg/mL, in males 51 pg/mL. The results should be used in conjunction with clinical conditions of myocardial infarction. (Access High Sensitivity Troponin I Instructions For Use, Gaby [employer], November 2017) Performed By: #### 1 5392039, 9250975, 2886606, 9356455, 6859209, 77887204, 8428731, 47477416 #### [facility] [address] [place] [address] UA With Cult Reflexon 2022 Bilirubin Ql (U) Negative Normal Negative [facility] Comment on above: Performed By: #### 1 1356889, 2002118 ####[facility] [address] [place] [address] Clarity (U) CLEAR Normal Clear [facility] Comment on above: Performed By: #### 1 1622310, 5916705 ####[facility] [address] [place] [address] Color (U) STRAW Abnormal Yellow [facility] Comment on above: Performed By: #### 1 9693365, 0839404 ####[facility] [address] [place] [address] Epithelial cells.squamous LM.HPF (Urine sed) [#/Area] 0-2 Normal 0-2 [facility] Comment on above: Performed By: #### 1 2459138, 5360238 ####[facility] [address] [place] [address] Glucose Test strip (U) [Mass/Vol] Negative Normal Negative [facility] Comment on above: Performed By: #### 1 1763018, 1555414 ####[facility] [address] [place] [address] Hemoglobin Ql (U) TRACE Abnormal Negative [facility] Comment on above: Performed By: #### 1 3529309, 7613888 ####[facility] [address] [place] [address] Ketones (U) [Mass/Vol] Negative Normal Negative [facility] Comment on above: Performed By: #### 1 6198724, 8260670 ####[facility] [address] [place] [address] [place].plasma/[place]. RBC (Bld) [Mass ratio] 0-3 Normal 0-3 [facility] Comment on above: Performed By: #### 1 7492349, 3002317 ####[address] [address] Nitrite Ql (U) Negative Normal Negative [facility] Comment on above: Performed By: #### 1 2861361, 9114718 ####[facility] [address] [place] [address] pH (U) 5.5 [pH] Invalid Interpretation Code 5.0-9.0 [facility] Comment on above: Performed By: #### 1 7558697, 5545556 ####[facility] [address] [place] [address] Protein (U) [Mass/Vol] Negative Normal Negative [facility] Comment on above: Performed By: #### 1 6169289, 1024335 ####[address] [address] Specific gravity (U) [Rel density] <=1.005 Invalid Interpretation Code 1.005-1.03 0 [facility] Comment on above: Performed By: #### 1 4237882, 3019620 ####[address] [address] Type of Urine collection method Clean Catch Normal [facility] Comment on above: Performed By: #### 1 9144139, 1141489 ####[facility] [address] [place] [address] Urobilinogen Qn (U) 0.2 {Tj'U}/dL Normal 0.0-1.0 [facility] Comment on above: Performed By: #### 1 7543940, 9618418 ####[facility] [address] [place] [address] WBC Auto Ql (U) 1+ Abnormal Negative [facility] Comment on above: Performed By: #### 1 4303872, 7940505 ####[facility] [address] [place] [address] WBC LM.HPF (Urine sed) [#/Area] 6-15 Abnormal 0-5 [facility] Comment on above: Performed By: #### 1 6350916, 0438551 ####[facility] [address] [place] [address] UA Spec Desc Catheter Normal [facility] Comment on above: Result Comment: Mini cath specimen Performed By: #### 1 8749445, 7437597, 1246913, 2022076, 4548604, 02136732, 4429393, 04902852 #### [facility] [address] [place] [address] Bacteria LM Ql (Urine sed) 2+ /HPF Abnormal Trace [facility] Comment on above: Performed By: #### 1 6198440, 0217043, 8643532, 7029287, 6029194, 99843888, 2270999, 73628362 #### [facility] [address] [place] [address] Bilirubin Ql (U) Negative Normal Negative [facility] Comment on above: Performed By: #### 1 4072409, 8825330, 8530011, 2338438, 0741099, 90955816, 8450026, 79913102 #### [facility] [address] [place] [address] Clarity (U) CLEAR Normal Clear [facility] Comment on above: Performed By: #### 1 5988656, 4808133, 7775249, 1203154, 1869089, 95750540, 6873360, 24510989 #### [facility] [address] [place] [address] Color (U) YELLOW Normal Yellow [facility] Comment on above: Performed By: #### 1 2580888, 2551488, 5359874, 5583045, 0343104, 90789636, 1759538, 19280476 #### [facility] [address] [place] [address] Epithelial cells.squamous LM.HPF (Urine sed) [#/Area] 0-2 Normal 0-2 [facility] Comment on above: Performed By: #### 1 3544411, 6864359, 2491292, 1377432, 2933322, 95612775, 9707774, 10176325 #### [facility] [address] [place] [address] Glucose Test strip (U) [Mass/Vol] Negative Normal Negative [facility] Comment on above: Performed By: #### 1 1605373, 1756611, 5923714, 9875209, 2939828, 00877276, 3060253, 31627262 #### [facility] [address] [place] [address] Hemoglobin Ql (U) Negative Normal Negative [facility] Comment on above: Performed By: #### 1 5460348, 9490468, 2455219, 1857291, 1591838, 69156092, 1908654, 71653909 #### [facility] [address] [place] [address] Ketones (U) [Mass/Vol] Negative Normal Negative [facility] Comment on above: Performed By: #### 1 7777701, 3142260, 4051167, 9331260, 7053092, 78732459, 7135838, 42597102 #### [facility] [address] [place] [address] [place].plasma/[place]. RBC (Bld) [Mass ratio] 0-3 Normal 0-3 [facility] Comment on above: Performed By: #### 1 2090037, 9305978, 6327897, 6270994, 0094637, 49075944, 5055668, 99807597 #### [facility] [address] [place] [address] Nitrite Ql (U) Positive Abnormal Negative [facility] Comment on above: Performed By: #### 1 2327023, 5024580, 7756249, 0427900, 4573567, 90994885, 7252298, 29996932 #### [facility] [address] [place] [address] pH (U) 6.0 [pH] Invalid Interpretation Code 5.0-9.0 [facility] Comment on above: Performed By: #### 1 4001796, 1945011, 5365292, 0157094, 8457410, 90011502, 9276200, 66432337 #### [facility] [address] [place] [address] Protein (U) [Mass/Vol] Negative Normal Negative Fi [facility] Comment on above: Performed By: #### 1 4582532, 6390392, 1240098, 3202140, 1206384, 63574834, 8029728, 46863437 #### [facility] [address] [place] [address] Specific gravity (U) [Rel density] 1.025 Invalid Interpretation Code 1.005-1.03 0 [facility] Comment on above: Performed By: #### 1 7446922, 3678148, 7918922, 0279270, 4573223, 13484856, 9550194, 13921981 #### [facility] [address] [place] [address] Urobilinogen Qn (U) 0.2 {Tj'U}/dL Normal 0.0-1.0 [facility] Comment on above: Performed By: #### 1 9421066, 7727692, 1143321, 2993587, 3065454, 85100943, 3188248, 23084362 #### [facility] [address] [place] [address] WBC Auto Ql (U) TRACE Abnormal Negative [facility] Comment on above: Performed By: #### 1 2452783, 9605049, 8664885, 7987678, 0327915, 60691985, 0070143, 42625135 #### [facility] [address] [place] [address] WBC LM.HPF (Urine sed) [#/Area] 0-5 Normal 0-5 [facility] Comment on above: Performed By: #### 1 0450787, 1728646, 8325123, 3470130, 4446448, 51607894, 4953048, 47384449 #### [facility] [address] [place] [address] URINALYSISOrdered By: Lisette Medina on 12-20-2022 Bilirubin [...] PM) Normal Negative [facility] UA Auto SS [place].plasma/[place]. RBC (Bld) [Mass ratio] 0-3 /HPF Normal 0-3/HPF [facility] UA Auto SS Nitrite Ql (U) Negative (12/20/22 5:18 PM) Normal Negative [facility] UA Auto SS pH (U) 5.5 *NA* (12/20/22 5:18 PM) Invalid Interpretation Code 5.0 - 9.0 [facility] UA Auto SS Protein (U) [Mass/Vol] Negative (12/20/22 5:18 PM) Normal Negative [facility] UA Auto SS Specific gravity (U) [Rel density] <=1.005 *NA* (12/20/22 5:18 PM) Invalid Interpretation Code 1.005 - 1.030 [facility] UA Auto SS UA Spec Desc Clean Catch (12/20/22 5:18 PM) Normal [facility] UA Auto SS Urobilinogen Qn (U) 0.2927536 {Tj'U}/dL Normal 0.0 - 1.0 EU/dL [facility] UA Auto SS WBC Auto Ql (U) 1+ *ABN* (12/20/22 5:18 PM) Invalid Interpretation Code Negative [facility] UA Auto SS WBC LM.HPF (Urine sed) [#/Area] 6-15 /HPF Invalid Interpretation Code 0-5/HPF [facility] UA Auto SS XR Chest Single Viewon 12-20 XR Chest Single View Exam Date/Time: 12/20/2022 16:16 EDT Reason for Exam: Shortness of breath (SOB) Report IMPRESSION: NO EVIDENCE OF ACTIVE CHEST DISEASE. [...] the prior exam. Ordering Provider: Pedro Nava FINAL REPORT Dictated: 12/20/2022 4:33 pm Zaheer Arriaga M.D. Signed (Electronic Signature): 12/20/2022 4:33 pm Signed by: Zaheer Arriaga M.D. Transcribed by: TOLU Technologist: LASHAY Technical Comments Radiation Dose: Ka,r in mGy = na DAP = na Normal [facility] XR Chest Single View Exam Date/Time: 12/19/2022 21:38 EDT Reason for Exam: Chest pain Report IMPRESSION: NO EVIDENCE OF ACTIVE CHEST DISEASE. CLINICAL HISTORY: Chest pain. COMPARISON: 11/01/2022. COMMENT: AP portable. The heart is within normal limits in size. The mediastinum is unremarkable. The lungs appear clear. No infiltration nor pleural effusion is evident. No significant change is noted when compared to the prior exam. Ordering Provider: David Tong FINAL REPORT Dictated: 12/20/2022 7:59 am Zaheer Arriaga M.D. Signed (Electronic Signature): 12/20/2022 7:59 am Signed by: Zaheer Arriaga M.D. Transcribed by: TOLU Technologist: KENROY Technical Comments Radiation Dose: Ka,r in mGy = na DAP = na Normal [facility] eGFRon 12-20-2022 GFR/1.73 sq M.predicted among non-blacks MDRD (S/P/Bld) [Vol rate/Area] 43 mL/min/1.73 m2 Low >=59 [facility] Comment on above: Order Comment: Order added by Discern Expert. Result Comment: Rebar Bender aubrey kidney disease could be indicated at eGFR's of less than 60 mL/min/1.73m2. Kidney failure is indicated at less than 15 mL/min/1.73m2. Performed By: #### 1 6862454, 7241341, 9111193, 6645012, 9184588, 75313930, 4399497, 17022033 #### [facility] [address] [place] [address] Auto Diffon 12-19-2022 Basophils/100 WBC (Bld) 0.4 % Normal 0.0-2.0 [facility] Comment on above: Order Comment: Order Added by Discern Expert. Performed By: #### 1 5252919, 3906329, 1398070, 9208752, 9254986, 14639129, 0259714, 73017253 #### [facility] [address] [place] [address] Basophils/Leukocytes Auto (Bld) [Pure # fraction] 0.0 E9/L Normal 0.0-0.2 [facility] Comment on above: Order Comment: Order Added by Discern Expert. Performed By: #### 1 4161920, 4822489, 7832842, 1726558, 0761772, 88696532, 5086858, 25818007 #### [facility] [address] [place] [address] Eosinophils/100 WBC (Bld) 1.6 % Normal 0.0-8.0 [facility] Comment on above: Order Comment: Order Added by Discern Expert. Performed By: #### 1 2789157, 5435115, 6370083, 3052690, 2776524, 95259290, 1509215, 95298274 #### [facility] [address] [place] [address] Eosinophils/Leukocytes Auto (Bld) [Pure # fraction] 0.1 E9/L Normal 0.0-0.5 [facility] Comment on above: Order Comment: Order Added by Discern Expert. Performed By: #### 1 6987884, 0165784, 4527260, 8097864, 7332762, 89521837, 4018549, 54704315 #### [facility] [address] [place] [address] Lymphocytes/100 WBC (Bld) 34.4 % Normal 14.0-50.0 [facility] Comment on above: Order Comment: Order Added by Discern Expert. Performed By: #### 1 8878422, 0221228, 6235938, 8035522, 5388723, 06480401, 2916581, 67461757 #### [facility] [address] [place] [address] Lymphocytes/Leukocytes Auto (Bld) [Pure # fraction] 1.2 E9/L Normal 1.0-4.0 [facility] Comment on above: Order Comment: Order Added by Discern Expert. Performed By: #### 1 4532987, 9783859, 4273326, 2015460, 3887061, 68838056, 6445031, 98153816 #### [facility] [address] [place] [address] Monocytes/100 WBC (Bld) 12.8 % Normal 4.0-14.0 [facility] Comment on above: Order Comment: Order Added by Discern Expert. Performed By: #### 1 1633022, 4152890, 1258255, 3226008, 0715131, 95461371, 2930883, 46782108 #### [facility] [address] [place] [address] Monocytes/Leukocytes Auto (Bld) [Pure # fraction] 0.4 E9/L Normal 0.2-1.0 [facility] Comment on above: Order Comment: Order Added by Discern Expert. Performed By: #### 1 3926558, 8150957, 8298076, 5606349, 0948484, 90882617, 1465244, 88145872 #### [facility] [address] [place] [address] Neutrophils/100 WBC (Bld) 50.8 % Normal 36.0-75.0 [facility] Comment on above: Order Comment: Order Added by Discern Expert. Performed By: #### 1 3785316, 3896122, 0134881, 0710195, 9807751, 44657305, 4087471, 90690977 #### [facility] [address] [place] [address] Neutrophils/Leukocytes Auto (Bld) [Pure # fraction] 1.7 E9/L Low 2.0-7.5 [facility] Comment on above: Order Comment: Order Added by Discern Expert. Performed By: #### 1 7848193, 8591890, 5954207, 7224823, 2075653, 43610154, 7040935, 11450489 #### [facility] [address] [place] [address] BMPon 12-19-2022 Anion gap [Moles/Vol] 10 mmol/L Normal 6-16 [facility] Comment on above: Performed By: #### 1 9448281, 0648521, 3637572, 1289202, 4281354, 06852664, 8780798, 50952184 #### [facility] [address] [place] [address] Calcium [Mass/Vol] 9.4 mg/dL Normal 8.9-11.1 [facility] Comment on above: Performed By: #### 1 2717653, 4231784, 6628716, 7072574, 4894937, 67425797, 1871023, 97936446 #### [facility] [address] [place] [address] Chloride [Moles/Vol] 111 mmol/L Normal 101-111 [facility] Comment on above: Performed By: #### 1 6684037, 7129224, 4258839, 6796824, 5297240, 56017266, 8147623, 32557304 #### [facility] [address] [place] [address] CO2 [Moles/Vol] 25 mmol/L Normal 21-31 [facility] Comment on above: Performed By: #### 1 0786130, 9249499, 1733665, 9276794, 9878856, 75224283, 2055293, 98320906 #### [facility] [address] [place] [address] Creatinine [Mass/Vol] 1.4 mg/dL High 0.5-1.3 [facility] Comment on above: Performed By: #### 1 1146911, 4522774, 4799256, 9406027, 8906234, 90386513, 6773220, 90863146 #### [facility] [address] [place] [address] Glucose [Mass/Vol] 165 mg/dL Normal 55-199 [facility] Comment on above: Result Comment: If t his glucose result represents a fasting glucose, interpretation should refer to the following reference range: 55-99 mg/dL Performed By: #### 1 5445277, 1912265, 1100385, 3024615, 9110458, 90899146, 7583682, 85324596 #### [facility] [address] [place] [address] Potassium [Moles/Vol] 4.6 mmol/L Normal 3.5-5.3 [facility] Comment on above: Performed By: #### 1 8513325, 5337551, 0336328, 0382110, 3555105, 57896245, 5719165, 84412462 #### [facility] [address] [place] [address] Sodium [Moles/Vol] 141 mmol/L Normal 135-145 [facility] Comment on above: Performed By: #### 1 6989455, 2318212, 2893704, 7460532, 5851220, 16629425, 8980980, 86683166 #### [facility] [address] [place] [address] Urea nitrogen [Mass/Vol] 36 mg/dL High 5-21 [facility] Comment on above: Performed By: #### 1 6619389, 2596894, 2314472, 6595592, 6118158, 81351765, 8046120, 93138888 #### [facility] [address] [place] [address] Urea nitrogen/Creatinine [Mass ratio] 26 No Units High 10-20 [facility] Comment on above: Performed By: #### 1 5512536, 1174841, 8192816, 0053163, 1383358, 85546638, 4838170, 17901899 #### [facility] [address] [place] [address] CBC w/ Auto Diffon 3 Erythrocyte distribution width (RBC) [Ratio] 18.9 % High 10.9-14.2 [facility] Comment on above: Performed By: #### 1 1009821, 6293329, 3043973, 5165773, 8593857, 84025215, 4540870, 12770229 #### [facility] [address] [place] [address] Hematocrit (Bld) [Volume fraction] 32.2 % Low 34.0-46.0 [facility] Comment on above: Performed By: #### 1 4224873, 7720657, 8908390, 5259405, 6394841, 00504928, 8376165, 00630270 #### [facility] [address] [place] [address] Hemoglobin (Bld) [Mass/Vol] 10.8 g/dL Low 12.0-16.0 [facility] Comment on above: Performed By: #### 1 2642880, 5745882, 0883142, 8666773, 1129800, 98310685, 4900269, 48079877 #### [facility] [address] [place] [address] MCH (RBC) [Entitic mass] 33.5 pg Normal 27.0-34.0 [facility] Comment on above: Performed By: #### 1 [id number], 3768955, 3027026, 3881517, 4249308, 67843689, 6309689, 45865847 #### [facility] [address] [place] [address] MCHC (RBC) [Mass/Vol] 33.4 g/dL Normal 31.4-36.0 [facility] Comment on above: Performed By: #### 1 5111399, 4385745, 9492463, 0984413, 4248386, 96377520, 8811675, 71891314 #### [facility] [address] [place] [address] MCV (RBC) [Entitic vol] 100.5 fL High 80.0-100.0 F [facility] Comment on above: Performed By: #### 1 8449215, 4975426, 0984716, 5699469, 3800611, 47482941, 6866349, 42581615 #### [facility] [address] [place] [address] Platelet mean volume (Bld) [Entitic vol] 7.0 fL Normal 6.4-10.8 [facility] Comment on above: Performed By: #### 1 3789700, 5630422, 4594545, 8899534, 4700188, 02582488, 3461618, 48350034 #### [facility] [address] [place] [address] Platelets (Bld) [#/Vol] 204.0 E9/L Normal 150. 0-500. 0 [facility] Comment on above: Performed By: #### 1 2390135, 1995569, 8772714, 7865385, 9352767, 10783162, 8519636, 25819481 #### [facility] [address] [place] [address] RBC (Bld) [#/Vol] 3.2 E12/L Low 4.3-5.9 [facility] Comment on above: Performed By: #### 1 2989063, 7643512, 5385788, 3507679, 9204040, 96660659, 3009463, 04281430 #### [facility] [address] [place] [address] WBC corrected for nucl RBC Auto (Bld) [#/Vol] 3.4 E9/L Low 4.0-11.0 [facility] Comment on above: Performed By: #### 1 8970990, 5871337, 0725365, 6793673, 7410849, 11315366, 1084982, 01738049 #### [facility] [address] [place] [address] CHEMISTRYOrdered By: SYSTEM SYSTEM on 12-19-2022 Albumin [...] 33.5 pg Normal 27.0 - 34.0 pg FT [facility]eAutoSS MCHC (RBC) [Mass/Vol] 33.4 g/dL Normal 31.4 - 36.0 gm/dL FT [facility]eAutoSS MCV (RBC) [Entitic vol] 100.5 fL High 80.0 - 100.0 fL FT HemeAutoSS Platelet mean volume (Bld) [Entitic vol] 7.0 fL Normal 6.4 - 10.8 fL FT [facility]SS Platelets (Bld) [#/Vol] 204.0 E9/L Normal 150. 0 - 500.0 E9/L FT [facility] RBC (Bld) [#/Vol] 3.2 E12/L Low 4.3 - 5.9 E12/L FT HemeAutoSS WBC corrected for nucl RBC Auto (Bld) [#/Vol] 3.4 E9/L Low 4.0 - 11.0 E9/L [facility] HemeAutoSS Hep Func Panelon 12-19-2022 Albumin [Mass/Vol] 3.5 g/dL Normal 3.3-5.0 [facility] Comment on above: Performed By: #### 1 3431873, 3812076, 3150365, 5321621, 9006325, 51813220, 1183484, 01586742 #### [facility] [address] [place] [address] Albumin/Globulin (S) [Mass conc ratio] 1.0 Low 1.1-2.2 [facility] Comment on above: Performed By: #### 1 9795241, 6501317, 0235833, 4059983, 5639146, 43020862, 2576865, 39554409 #### [facility] [address] [place] [address] ALP [Catalytic activity/Vol] 110 Int._Unit/L High 21-98 [facility] Comment on above: Performed By: #### 1 0308758, 6998866, 2357722, 0863148, 9889067, 72975185, 5682685, 40302107 #### [facility] [address] [place] [address] ALT No additional P-5'-P [Catalytic activity/Vol] 20 Int._Unit/L Normal 6-46 [facility] Comment on above: Performed By: #### 1 0881999, 7545017, 1931542, 1848418, 9666687, 47923542, 3152976, 81105350 #### [facility] [address] [place] [address] AST [Catalytic activity/Vol] 19 Int._Unit/L Normal 5-43 [facility] Comment on above: Performed By: #### 1 4839376, 6630229, 5245530, 9912620, 1316745, 58769692, 9613046, 16976348 #### [facility] [address] [place] [address] Bilirubin [Mass/Vol] 0.4 mg/dL Normal 0.0-1.1 [facility] Comment on above: Performed By: #### 1 6671131, 3660302, 9367450, 1913984, 2749093, 31373312, 2261736, 36878889 #### [facility] [address] [place] [address] Bilirubin.direct [Mass/Vol] 0.1 mg/dL Normal 0.1-0.4 [facility] Comment on above: Performed By: #### 1 7127027, 4431946, 0794872, 7372464, 4661214, 53415797, 9323646, 00002685 #### [facility] [address] [place] [address] Bilirubin.indirect [Mass or moles/Vol] 0.3 mg/dL Normal 0.1-0.9 [facility] Comment on above: Performed By: #### 1 2735401, 4130597, 1266959, 5860129, 0142936, 42265874, 9672191, 74612593 #### [facility] [address] [place] [address] Globulin (S) [Mass/Vol] 3.5 g/dL Normal 1.4-4.0 F [facility] Comment on above: Performed By: #### 1 0787090, 2990209, 0743261, 3122329, 6255753, 80863537, 6175373, 58505342 #### [facility] [address] [place] [address] Protein [Mass/Vol] 7.0 g/dL Normal 6.0-7.8 [facility] Comment on above: Performed By: #### 1 8512688, 0220258, 9776975, 7136639, 8960148, 41280669, 0478796, 13509547 #### [facility] [address] [place] [address] Laboratory - Microbiology an d Antimicrobial susceptibilityOrdered By: Jeaneth Morfin on 12-19-2022 Bacteria identified Cx Nom (U) >100,000 cfu/ml Gram Negative Glynn Discharge Rn species [facility] Magnesiumon 12-19-2022 Magnesium [Mass/Vol] 2.0 mg/dL Normal 1.3-2.4 [facility] Comment on above: Performed By: #### 1 1876199, 8658918, 1067268, 6886192, 3020541, 83690737, 2822919, 36010849 #### [facility] [address] [place] [address] PT & PTTon 12-19-2022 aPTT Coag (PPP) [Time] 26.7 second(s) Normal 25.1-36.5 [facility] Comment on above: Result Comment: Para [...] the same coagulation reagent and instrumentation as [facility]. Currently there are no coagulation studies available worldwide for children to 14 days, and no normal ranges. Heparin therapeutic range (represented by Anti-Factor Xa activity of 0.2 - 0.4 U/mL) corresponds to PTT of 56.6 - 109.0 sec. Performed By: #### 1 0472272, 7951168, 0377319, 9680028, 9740637, 74670389, 8446472, 86718232 #### [facility] [address] [place] [address] INR Coag (PPP) [Relative time] 1.0 {INR} Invalid Interpretation Code [facility] Comment on above: Result Comment: INR results are specifically intended to assess patients stabilized on long-term Anticoagulation therapy suggested INR?s ?Less Intensive Anticoagulation? 2.0 ? 3.0 Conventional Range 3.0 ? 4.5 Performed By: #### 1 4957817, 6308358, 3716866, 1955257, 8940062, 85390076, 0498605, 27082601 #### [facility] [address] [place] [address] PT Coag (PPP) [Time] 11.5 second(s) Normal 9.4-12.5 [facility] Comment on above: Result Comment: 15 [...] the same coagulation reagent and instrumentation as [facility]. Currently there are no coagulation studies available worldwide for children to 14 days, and no normal ranges. Performed By: #### 1 5870442, 6559011, 1064368, 6514516, 8701011, 15034027, 4848874, 92118260 #### [facility] [address] [place] [address] Pre-Arrival Noteon 3 Pre-Arrival Note Pre-Arrival Summary Name: aram freed Current Date: 12/19/2022 20:42:25 EDT Gender: Female Date of : Age: 72 Pre-Arrival Type: EMS ETA: 12/19/2022 20:55:00 EDT Primary Care Physician: Presenting Problem: gen. weakness Pre-Arrival User: Javier Flood RN Referring Source: Location: [place] Completion Date/Time: 12/19/2022 20:25:00 [facility] Emergency Department Pre-Hospital Report Form ____ Vital Signs: 140/83, 89pulse, 96% Pre-Hospital Report: generalized weakness. awaiting bed at [facility]. pt wanted seen . Treatment in Route: Response to Treatment: Misc. Issues: Normal [facility] Troponin 0 Hr.on 12-19-2022 Troponin I.cardiac [Mass/Vol] 9.40 pg/mL Low 10.10-27.1 0 [facility] Comment on above: Result Comment: The 95% CI (Confidence Interval) PPV (Positive Predictive Value) for myocardial infarction in females is 38 pg/mL, in males 51 pg/mL. The results should be used in conjunction with clinical conditions of myocardial infarction. (Access High Sensitivity Troponin I Instructions For Use, Gaby Marisol, November 2017) Performed By: #### 1 4495078, 4639997, 6655381, 3149362, 3834778, 92668192, 7055647, 66766109 #### [facility] [address] [place] [address] URINALYSISOrdered By: Evert Cordoba on 12-19-2022 Bacteria [...] PM) Normal Negative [facility] UA Auto SS [place].plasma/[place]. RBC (Bld) [Mass ratio] 0-3 /HPF Normal [...] Comment: Mini cath specimen Urobilinogen Qn (U) [id number] {Tj'U}/dL Normal 0.0 - 1.0 EU/dL [facility] UA Auto SS WBC Auto Ql (U) Trace *ABN* (12/19/22 10:25 PM) Invalid Interpretation Code Negative [facility] UA Auto SS WBC LM.HPF (Urine sed) [#/Area] 0-5 /HPF Normal 0-5/HPF [facility] UA Auto SS eGFRon 12-19-2022 GFR/1.73 sq M.predicted among non-blacks MDRD (S/P/Bld) [Vol rate/Area] 40 mL/min/1.73 m2 Low >=59 [facility] Comment on above: Order Comment: Order added by Discern Expert. Result Comment: Rebar Bender aubrey kidney disease could be indicated at eGFR's of less than 60 mL/min/1.73m2. Kidney failure is indicated at less than 15 mL/min/1.73m2. Performed By: #### 1 7880550, 1203825, 4902390, 9138878, 8799577, 18284292, 3661155, 24291172 #### [facility] [address] [place] [address] CT Spine Lumbar w/o Contrast on 12-17-2022 CT Spine Lumbar w/o Contrast Exam Date/Time: 12/17/2022 10:41 EDT Reason for Exam: Trauma Report IMPRESSION: OSTEOPENIA. MULTILEVEL DEGENERATIVE CHANGES. SPINAL CANAL STENOSES AND NEURAL FORAMINAL ENCROACHMENTS DESCRIBED IN THE COMMENT. FRACTURES OF THE L1 AND L2 VERTEBRAL BODIES SUPERIORLY, WITH INCREASED CONCAVITY OF THE VERTEBRAL BODIES. THESE WOULD APPEAR TO HAVE DEVELOPED IN THE INTERIM SINCE PRIOR PET CT STUDY ON 07/25/2022. DEFORMITY OF THE L3 VERTEBRAL BODY SUPERIORLY, WITHOUT SIGNIFICANT CHANGE FROM PRIOR CT PELVIS STUDY ON 11/02/2022. BILATERAL SACRAL WING FRACTURES, WITHOUT SIGNIFICANT INTERVAL CHANGE. CLINICAL HISTORY: Trauma. Right-sided pain. Back pain. Recent fall. COMMENT: Unenhanced images were obtained. There is mild lumbar levoscoliosis. The bones are osteopenic. There are degenerative changes. The degenerative vacuum is present within interspaces from T11-T12 through L4-5. There is severe narrowing of the T11-T12 and L4-L5 interspaces. There is marginal degenerative spurring of vertebral bodies. There are hypertrophic arthritic changes of facet joints, more prominent at the L3-L4, L4-5, and L5-S1 levels. T11-T12: There is grade 1 retrolisthesis. There is posterior disc bulging, with associated calcification. There is associated relatively mild anterior extradural defect. There is neural foraminal encroachment on the right. T12-L1: No posterior disc bulging-protrusion is noted. L1-L2: There is asymmetric disc bulging posteriorly on the left, with mild indentation of dural sac anteriorly on the left. There is hypertrophy of ligamenta flava. There is moderate focal spinal canal stenosis. There is neural foraminal encroachment, greater on the left. L2-L3: There is disc bulging, with mild indentation of the dural sac anteriorly. There is hypertrophy ligamenta flava. There is moderate to severe focal spinal canal stenosis. L3-L4: There is broad-based posterior disc protrusion, asymmetrically greater on the left, and there is calcification associated with the disc protrusion. There is indentation of the dural sac anteriorly, asymmetrically greater on the left. There is hypertrophy ligamentum flava. There is severe focal spinal canal stenosis. L4-L5: There is broad-based posterior disc protrusion, and there is calcification associated with the disc protrusion. There is indentation of the dural sac and anteriorly. There is severe focal spinal canal stenosis. There is neural foraminal Report encroachment on the left. L5-S1: There are posterior degenerative changes of vertebral bodies at this level. No focal disc herniation is evident. No deformity of the dural sac is evident at this level and there is no significant spinal canal stenosis. There is a fracture of the L1 vertebral body superiorly, with increased concavity of the superior endplate, 3 mm of retropulsion of the posterior superior vertebral body into the spinal canal, sclerotic changes involving the superior aspect of this vertebral body, and small lucent defects of cortex at the superior endplate. There is a fracture of the L2 vertebral body superiorly, with increased concavity of the superior endplate, bony sclerotic changes involving the vertebral body (from superior endplates inferior endplate), and small lucent defects of cortex at the superior endplate. Although bony detail is not optimal on prior PET CT scan on 07/25/2022, the increased concavity of superior L1 and L2 vertebral bodies was not evident on the prior study. There is deformity of the L3 vertebral body superiorly, with mildly increased concavity of the superior endplate and some limited sclerosis of the vertebral body superiorly. This deformity of the L5 3 vertebral body superiorly was present on prior CT scan of the pelvis on 11/02/2022. No fracture involving pedicles or posterior elements of these vertebral bodies is noted. The T12, L4, and L5 vertebral bodies are maintained in height. Bilateral nondisplaced sacral wing fractures were noted on the prior CT pelvis study. There are irregular lucent fracture lines involving both sacral wings paralleling the SI joints. There is associated bony sclerosis adjacent to the lucencies. Little interval change in the bilateral sacral wing fractures is noted. There is no diastases at the sacroiliac joints. No lytic bony destructive lesion is evident. All CT scans at this facility use dose modulation, iterative reconstruction, and/or weight based dosing when appropriate to reduce radiation dose to as low as reasonably achievable. Ordering Provider: Gui Scruggs FINAL REPORT Dictated: 12/17/2022 11:41 am Zaheer Arriaga M.D. Signed (Electronic Signature): 12/17/2022 11:41 am Signed by: Zaheer Arriaga M.D. Transcribed by: TOLU Technologist: TIEN [facility] Consent for Treatmenton 11-21 Consent for Treatment [id number]:1 27 [facility] Discharge Instructionson Discharge Instructions [id number]:1 27 [facility] ED Clinical Summaryon 2022 ED Clinical Summary (Inserted Image. Belle ble to display) [place] [id number] ED Clinical Summary Person Information Name: MARLEN STALEY/[facility] Age: 72 Years : 1950 Sex: Female Language: Martiniquais PCP: Rickey Askew MD Marital Status: Phone: [phone] MRN: Visit Id: Visit Reason: Weakness or fatigue; Back pain; Back injury; WEAKNESS Speciality: Acuity: 3 Enc Type: Emergency Med Service: Emergency Arrival: 12/17/2022 10:19:35 Discharge: 12/17/2022 14:42:39 LOS: 000 04:23 Checkin: 12/17/2022 10:19:35 Checkout: 12/17/2022 14:42:39 Dispo Type: Home (Routine DC) EVENTS: Event Name Event Status Request Date/Time Start Date/Time Complete Date/Time Arrive Complete 12/17/2022 10:19:35 12/17/2022 10:19:35 12/17/2022 10:19:35 Document Home Meds Request 12/17/2022 10:19:35 Triage Complete 12/17/2022 10:19:35 12/17/2022 10:29:46 12/17/2022 10:29:46 Bed Assign Complete 12/17/2022 10:20:34 12/17/2022 10:20:34 12/17/2022 10:20:34 Dr Exam Complete 12/17/2022 10:20:34 12/17/2022 10:20:52 12/17/2022 10:20:52 RN Exam Complete 12/17/2022 10:20:34 12/17/2022 10:31:51 12/17/2022 10:31:51 Registration Complete 12/17/2022 10:20:52 12/17/2022 10:50:40 12/17/2022 10:50:40 Dr Exam Complete 12/17/2022 10:21:31 12/17/2022 10:21:31 12/17/2022 10:21:31 CT Complete 12/17/2022 10:21:48 12/17/2022 10:26:17 12/17/2022 10:41:08 X-Ray Complete 12/17/2022 10:21:48 12/17/2022 10:31:33 12/17/2022 10:48:27 Meds Admin Complete 12/17/2022 10:21:48 12/17/2022 10:44:52 EKG Complete 12/17/2022 10:26:27 12/17/2022 10:54:18 Fall Risk Request 12/17/2022 10:31:52 Wet Read Complete 12/17/2022 10:48:27 12/17/2022 10:51:50 12/17/2022 10:51:50 Reg Complete Request 12/17/2022 10:50:40 Reg Bed Request Complete 12/17/2022 10:50:40 12/17/2022 10:50:40 12/17/2022 10:50:40 X-Ray Complete 12/17/2022 12:28:04 12/17/2022 12:30:05 12/17/2022 12:46:34 Wet Read Complete 12/17/2022 12:46:34 12/17/2022 12:58:34 12/17/2022 12:58:34 Discharge Complete 12/17/2022 12:55:03 12/17/2022 14:42:45 12/17/2022 14:42:45 Transfer Complete 12/17/2022 14:42:45 12/17/2022 14:42:45 12/17/2022 14:42:45 ADDRESS: [address] [place] [address] [address] [place] [id number] PHYS DOC NOTES: MEDICAL INFORMATION: Prescriptions Given: New Medications [id number], [address] [place] [id number], [phone] oxycodone (oxyCODONE 5 mg Tab) 1 Tablets By Mouth every 6 hours for 3 Days. Refills: 0. Medications to Continue with No Changes Other Medications acetaminophen (acetaminophen 500 mg Tab) 2 Tablets By Mouth every 6 hours. anastrozole (anastrozole 1 mg Tab) 1 Tablets By Mouth every day. Refills: 11. cholecalciferol (Vitamin D3 2000 intl units oral tablet) 1 Tablets By Mouth every day. Refills: 4. cyanocobalamin (Vitamin B12 1000 mcg Tab) 1 Tablets By Mouth every day. Refills: 11. lisinopril (lisinopril 10 mg Tab) 1 Tablets By Mouth every day. melatonin (melatonin 5 mg oral tablet) 1 Tablets By Mouth once a day (at bedtime) as needed for insomnia. ribociclib (Kisqali (200 mg daily dose) oral tablet) 2 tab(s) take for 21 days, withhold for 7 days, then repeat cycle. 11 REFILLS. Refills: 1. simvastatin (simvastatin 40 mg Tab) 1 Tablets By Mouth once a day (at bedtime). PATIENT EDUCATION INFORMATION: Instructions: Lumbar Spine Fracture Follow up: With: Address: When: JOSÉ ANTONIO OVIEDO[address] [address] [employer] (1) In 3 days 12/20/2022 With: Address: When: Gavino Lugo [address] [place] [address] Business (1) In 3 days 12/20/2022 With: Address: When: Rickey Askew [address] [place] [address] Business (1) In 3 days 12/20/2022 DIAGNOSIS: Fall; Lumbar compression fracture Normal [facility] ED Note-Physicianon 12-18-19 ED Note-Physician Basic Information Time Seen: Gui Scruggs PA-C 12/17/2022 10:20 Chief Complaint Patient fell 3 days ago, she states she tripped and fell forward, she has been able to ambulate until today, states right lower flank pain, she also states prior back problems and pain History of Present Illness 72-year-old female comes into the ED for evaluation of back pain. The patient states she had a fall couple of days ago. She states she was walking with her walker when she tripped and fell backwards. She presents complaining of pain along the lumbar region. She denies striking any loss of conscious. Denies any head neck back chest or abdominal pain. Denies any weakness or paresthesias. Denies any recent illnesses. No difficulty with bladder or bowel function. Review of Systems A 10 point review of systems is negative except as noted above. Medical and Surgical History: Reviewed and noted Social history: Lives at home Tobacco: Denies Physical Exam Vitals & Measurements T: 36.6 ?C(Oral) HR: 60(Monitored) RR: 18 BP: 132/77 SpO2: 97% HT: 168 cm WT: 87.0 kg BMI: 30.82 Nurses notes and vital signs reviewed and patient is not hypoxic. General: The patient appears well, resting comfortably. Skin: Warm, dry. Head: Atraumatic. Neck: No JVD. Eye: Normal conjunctiva. Ears, Nose, Mouth, and Throat: Moist mucous membranes. Cardiovascular: Strong distal pulses. Chest wall: Respiratory: Respirations are nonlabored. Back: Good range of motion. Tenderness along the lumbar region. Musculoskeletal: Tenderness over the right hip area. No pelvic instability. Gastrointestinal: Soft and nontender Urological: Neurological: Awake and alert. No focal deficits. Follows commands. Psychiatric: Cooperative. Medical Decision Making Imaging was reviewed. She has old pelvic fractures but does appear to have acute lumbar compression fractures. Case is discussed with trauma who reviewed the imaging and recommended standing x-rays which were obtained and are stable. She has been cleared for discharge home by trauma. This was discussed with the patient. Did offer her admission given her age and positive findings, however she has declined wish to be discharged home. Her pain is well controlled. She is able to ambulate safely. She is prescribed oxycodone discharged home with orthopedic and spine surgery follow-up. Patient was encouraged to return to the ED if symptoms worsen or change. Assessment/Plan Fall (W19.XXXA: Unspecified fall, initial encounter) Lumbar compression fracture (S32.000A: Wedge compression fracture of unspecified lumbar vertebra, initial encounter for closed fracture) Ordered: oxycodone, 5 mg = 1 tab(s), Oral, q6hr, X 3 day(s), # 15 tab(s), Refills(s) 0, Pharmacy: [facility], 168, cm, 12/17/22 10:29:00 EDT, Height/Length Dosing, 87, kg, 12/17/22 10:29:00 EDT, Weight Dosing Orders: oxycodone, 5 mg = 1 tab(s), Tab, Oral, Once, Stop date 12/17/22 10:21:00 EDT, STAT, Start date 12/17/22 10:21:00 EDT, 12/17/22 10:21:[address] Spine Lumbar w/o Contrast XR Hip 2-3 Views Right + Pelvis XR Spine Lumbosacral 2 or 3 Views Medications Administered Given oxyCODONE 5 mg Tab, 5 mg, Oral Disposition Plan Patient Discharge Condition Disposition: Discharged home Condition: Improved and stable Counseled: Patient and/or family were counseled to workup, results, treatment plan and follow-up recommendations Discharge Prescription List Prescriptions oxyCODONE 5 mg Tab, 5 mg= 1 tab(s), Oral, q6hr Follow-up With When Contact Information JOSÉ ANTONIO VARGAS In 3 days 12/20/2022 [address]T [address] [address]- Business (1) Additional Instructions: Gavino Lugo In 3 days 12/20/2022 EDT [address] [place] [address]- [employer] (1) Additional Instructions: Rickey Askew In 3 days 12/20/[address] [place] [address]- [employer] (1) Additional Instructions: Patient Education Lumbar Spine Fracture Attestation Patient seen and evaluated by the physician assistant womens volleyball coach. Attending physician was present in the emergency department and supervised care. This visit was performed by both the physician and an APC. I performed all aspects of the MDM as documented. This report was transcribed using voice recognition software. Every effort was made to ensure accuracy, however, inadvertently computerized journeyman sheet metal worker mistakes may be present. Appropriate healthcare PPE was used in evaluating this patient. The patient was placed in a mask. The healthcare provider was wearing mask, gloves, and utilizing proper hand hygiene. All equipment was properly cleansed. Problem List/Past Medical History Ongoing Age-related cognitive decline Axillary adenopathy Chronic edema Diabetes History of breast cancer History of healed fragility fracture HTN (hypertension) Hypercholesteremia Invasive ductal carcinoma of right breast Multiple closed fra (more content not included)... Normal [facility] Comment on above: Result Comment: Elec tronically Signed By: Gui Scruggs PA-C\.br\Date and Time Signed: 12/17/22 13:40 EDT\.br\Electronically Co-Signed By: Jeffery Murphy DO\.br\Date and Time Co-Signed: 12/17/22 18:34 EDT ED Patient Education Noteon 12-17-2022 ED Patient Education Note Orthopedics Lumbar Spine Fracture A lumbar spine fracture is a break in one of the bones of the lower back. Lumbar spine fractures can vary from mild to severe. The most severe types are those that: ? Cause the broken bones to move out of place (unstable). ? Injure or press on the spinal cord. During recovery, it is normal to have pain and stiffness in the lower back for weeks. What are the causes? This condition may be caused by: ? A fall. ? A car accident. ? A gunshot wound. ? A hard, direct hit to the back. What increases the risk? You are more likely to develop this condition if: ? You are in a situation that could result in a fall or other violent injury. ? You have a condition that causes weakness in the bones (osteoporosis). What are the signs or symptoms? The main symptom of this condition is severe pain in the lower back. If a fracture is complex or severe, there may also be: ? A misshapen or swollen area on the lower back. ? Limited ability to move an area of the lower back. ? Inability to empty the bladder (urinary retention). ? Loss of bowel or bladder control (incontinence). ? Loss of strength or sensation in the legs, feet, and toes. ? Inability to move (paralysis). How is this diagnosed? This condition is diagnosed based on: ? A physical exam. ? Symptoms and what happened just before they developed. ? The results of imaging tests, such as an X-ray, CT scan, or MRI. If your nerves have been damaged, you may also have other tests to find out the extent of the damage. How is this treated? Treatment for this condition depends on how severe the injury is. Most fractures can be treated with: ? A back brace. ? Bed rest and activity restrictions. ? Pain medicine. ? Physical therapy. Fractures that are complex, involve multiple bones, or make the spine unstable may require surgery. Surgery is done: ? To remove pressure from the nerves or spinal cord. ? To stabilize the broken pieces of bone. Follow these instructions at home: Medicines ? Take bjxw-imj-luymqqg and prescription medicines only as told by your health care provider. ? Do not drive or use heavy machinery while taking prescription pain medicine. ? If you are taking prescription pain medicine, take actions to prevent or treat constipation. Your health care provider may recommend that you: ? Drink enough fluid to keep your urine pale yellow. ? Eat foods that are high in fiber, such as fresh fruits and vegetables, whole grains, and beans. ? Limit foods that are high in fat and processed sugars, such as fried or sweet foods. ? Take an lirv-jlf-uvpvfkt or prescription medicine for constipation. If you have a brace: ? Wear the back brace as told by your health care provider. Remove it only as told by your health care provider. ? Keep the brace clean. ? If the brace is not waterproof: ? Do not let it get wet. ? Cover it with a watertight covering when you take a bath or a shower. Activity ? Stay in bed (on bed rest) only as directed by your health care provider. ? Do exercises to improve motion and strength in your back (physical therapy), if your health care provider tells you to do so. ? Return to your normal activities as directed by your health care provider. Ask your health care provider what activities are safe for you. Managing pain, stiffness, and swelling ? If directed, put ice on the injured area: ? If you have a removable brace, remove it as told by your health care provider. ? Put ice in a plastic bag. ? Place a towel between your skin and the bag. ? Leave the ice on for 20 minutes, 2?3 times a day. General instructions ? Do not use any products that contain nicotine or tobacco, such as cigarettes and e-cigarettes. These can delay healing after injury. If you need help quitting, ask your health care provider. ? Do not drink alcohol. Alcohol can interfere with your treatment. ? Keep all follow-up visits as directed by your health care provider. This is important. ? Failing to follow up as recommended could result in permanent injury, disability, or long-lasting (chronic) pain. Contact a health care provider if: ? You have a fever. ? Your pain medicine is not helping. ? Your pain does not get better over time. ? You cannot return to your normal activities as planned or expected. Get help right away if: ? You have difficulty breathing. ? Your pain is very bad and it suddenly gets worse. ? You have numbness, tingling, or weakness in any part of your body. ? You are unable to empty your bladder. ? You cannot control your bladder or bowels. ? You are unable to move any body part (paralysis) that is below the level of your injury. ? You vomit. ? You have pain in your abdomen. Summary ? A lumbar spine fracture is a break in one of the bones of the lower back. ? The main symptom of this condition is renae (more content not included)... Normal [facility] ED Patient Summaryon 023 ED Patient Summary (Inserted Image. Belle ble to display) [place] [id number] Patient Discharge Instructions Person Information Name: MARLEN STALEY Age: 72 Years Arrival Date: 12/17/2022 10:19:35 Discharge Diagnosis: Fall; Lumbar compression fracture Primary Care Physician: Rickey Askew MD Provider Information Primary Provider: Jeffery Murphy DO Advanced Lineman A Class:Gui Scruggs PA-C The exam and treatment you received in the Emergency Department were for an urgent problem and are not intended as complete care. It is important that you follow up with a doctor, nurse practitioner, or physician?s assistant womens volleyball coach for ongoing care. If your symptoms become worse or you do not improve as expected and you are unable to reach your usual health care provider, you should return to the Emergency Department. We are available 24 hours a day. DAVIDMARLEN has been given the following list of patient education materials, prescriptions and follow-up instructions: Follow-up Instructions: With: Address: When: JOSÉ ANTONIO VARGAS [address] [place] [id number] Business (1) In 3 days 12/20/2022 With: Address: When: Gavino Lugo [address] [place] [address] Business (1) In 3 days 12/20/2022 With: Address: When: Rickey Askew [address] [place] [address] Business (1) In 3 days 12/20/2022 In the event that this physician does not participate in your insurance network, please consult with your insurance company to find a nearby participating provider. Patient Education Materials: Lumbar Spine Fracture A MESSAGE TO ALL PATIENTS REGARDING OPIOIDS PRESCRIPTION OPIOIDS: WHAT YOU NEED TO KNOW Prescription opioids can be used to help relieve agdcoowy-st-lpxcgl pain and are often prescribed following a surgery or injury, or for certain health conditions. These medications can be an important part of the treatment but also come with serious risks. It is important to work with your healthcare provider to make sure you are getting the safest, most effective care. WHAT ARE THE RISKS AND SIDE EFFECTS OF OPIOID USE? Prescription opioids carry serious risks of addiction and overdose, especially with prolonged use. An opioid overdose, often marked by slowed breathing, can cause sudden . The use of prescription opioids can have a number of side effects as well, even when taken as directed: ? Tolerance?meaning you might need to take more of the medication for the same pain relief ? Physical dependence?meaning you have symptoms of withdrawal when a medication is stopped ? Increased sensitivity to pain ? Constipation ? Nausea, vomiting, and dry mouth ? Sleepiness and dizziness ? Confusion ? Depression ? Low levels of testosterone that can result in lower sex drive, energy, and strength ? Itching and sweating RISKS ARE GREATER WITH: ? History of drug misuse, substance use disorder, or overdose ? Mental health conditions (such as depression or anxiety) ? Sleep apnea ? Older age (65 years and older) ? Avoid alcohol while taking prescription opioids. Also, unless specifically advised by your health care provider, medications to avoid include: ? Benzodiazepines (such as Xanax or Valium) ? Muscle relaxants (such as Soma or Flexeril) ? Hypnotics (such as Ambien or Lunesta) ? Other prescription opioids KNOW YOUR OPTIONS Talk to your health care provider about ways to manage your pain that don?t involve prescription opioids. Some of these options may actually work better and have fewer risks and side effects. Options may include: ? Pain relievers such as acetaminophen, ibuprofen, and naproxen ? Some medication that are also used for depression or seizures ? Physical therapy and exercise ? Cognitive behavioral therapy, a psychological, goal-directed approach, in which patients learn how to modify physical, behavioral, and emotional triggers of pain and stress. IF YOU ARE PRESCRIBED OPIOIDS FOR PAIN: ? Never take opioids in greater amounts or more often than prescribed. ? Follow up with your primary health care provider. o Work together to create a plan on how to manage your pain. o Talk about ways to help manage your pain that don?t involve prescription opioids. o Talk about any and all concerns and side effects. ? Help prevent misuse and abuse o Never sell or share prescription opioids. o Never use another person?s prescription opioids. ? Store prescription opioids in a secure place and out of reach of others (this may include visitors, children, friends, and family). ? Safely dispose of unused prescription opioids: Find your community drug take-back program or your pharmacy mail-back program, or flush them down the toilet, following guidance from the Food and Drug Administration (www.fda.gov/Drugs/Resour cesForYou). ? Visit (more content not included)... [facility] Home Recordson 12-17 Senior Living Records [id number]:1 27 Normal [facility] XR Hip 2-3 Views Right + Pel vison 12-17-2022 XR Hip 2-3 Views Right + Pelvis Exam Date/Time: 12/17/2022 10:48 EDT Reason for Exam: Pain, Traumatic Addendum IMPRESSION: Healing fractures of the left superior and inferior pubic rami. Ordering Provider: Gui Scruggs FINAL REPORT Dictated: 12/17/2022 12:37 pm Pipo Mayfield DO Signed (Electronic Signature): 12/17/2022 12:37 pm Signed by: Pipo Mayfield DO Transcribed by: TOLU Technologist: JOVITA Report IMPRESSION: DISPLACED FRACTURES OF THE LEFT SUPERIOR AND INFERIOR PUBIC RAMI. EXAMINATION: XR Hip 2-3 Views Right + Pelvis HISTORY: Hip pain since a fall COMPARISONS: Pelvis radiograph 11/20/2022 TECHNIQUE: Frontal and lateral views of the hip. FINDINGS: No acute proximal femur fracture. No hip dislocation. Moderate degenerative changes of the right hip. Displaced fractures of the left superior and inferior pubic rami. Fractures of the sacrum better visualized on CT of the lumbar spine. Degenerative changes of the lower lumbar spine. Pelvic phleboliths. Atherosclerotic vascular calcifications. Ordering Provider: Gui Scruggs FINAL REPORT Dictated: 12/17/2022 12:15 pm Pipo Mayfield DO Signed (Electronic Signature): 12/17/2022 12:15 pm Signed by: Pipo Mayfield DO Transcribed by: TOLU Technologist: JOVITA Technical Comments Radiation Dose: Kar in mGy = na DAP = na Report last revised on 12/17/2022 12:37 EDT by Pipo Mayfield DO [facility] XR Spine Lumbosacral 2 or 3 Viewson 12-17-2022 XR Spine Lumbosacral 2 or 3 Views Exam Date/Time: 12/17/2022 12:46 EDT Reason for Exam: Pain, Traumatic Report IMPRESSION: ACUTE/SUBACUTE COMPRESSION FRACTURES OF L1 AND L2. AGE-INDETERMINATE MODERATE ANTERIOR WEDGE COMPRESSION DEFORMITY OF T10. EXAMINATION: XR Spine Lumbosacral 2 or 3 Views TECHNIQUE: AP and lateral views HISTORY: Low back pain. COMPARISONS: CT lumbar spine 12/17/2022. Pelvis CT 03/05/2023 FINDINGS: Mild compression fracture of L1 and ybnq-xq-koviefxw compression fracture of L2. No significant interval change of compression deformity of L3 when compared to prior pelvis CT. Mild levoscoliosis of the thoracolumbar spine. Multilevel degenerative disc disease most significant at L4-L5. Facet arthropathy of the mid and lower lumbar spine. Sacral wing fractures seen on prior CT lumbar spine are not well visualized. Age-indeterminate moderate anterior wedge compression deformity of T10. Ordering Provider: Gui Scruggs FINAL REPORT Dictated: 12/17/2022 1:38 pm Pipo Mayfield DO Signed (Electronic Signature): 12/17/2022 1:38 pm Signed by: Pipo Mayfield DO Transcribed by: TOLU Technologist: SAV Technical Comments Radiation Dose: Ka,r in mGy = na DAP = na Normal [facility] Family Medicine Office/Clini c Noteon 12-14-2022 Family Medicine Office/Clinic Note History of Present Illness Discharge from [facility] 12/15 ADMIT from [facility] 11/02?16 multiple falls and increasing weakness, neighbor did not feel she was safe at home. currently admitted to [facility] with weakness, dementia. Was unable to ambulate in the ED, found with fractures of left superior and inferior pubic rami, probably subacute, bilateral sacral fractures also probably subacute and chronic appearing nondisplaced fractures of the right pubic rami. Incidental notice of significant distention of the bladder but on ED minicath only 50 ml output and 11/02 afternoon had only 100 ml output. Started on vitamin D. Here for rehab stay. Pt was stable during her time here but was not very active. Was in bed most of time. w dementia here at same time. Facility with concerns for their safety at home and ability to care for self but she would have nothing to do with that. APS referral made. Hb 12.1 CR 1.3 eGFR 43 ALB 3.5 vitamin D < 7 PMHx- , HTN, chronic edema, DM on no meds, metastatic breast cancer 2021 invasive ductal carcinoma Gr 2 - mets axillary, right glenoid, L4. No mets seen on 08/[address] Askew Oncology Dr. Caldera Physical Exam obese WF seated in WC. I observed her walking up haas w aide, using walker. Did well. Alert, good historian. In a good mood. Relates her plans for home. Lungs CTA Ht RRR wo murmur no distal edema, normal coloration. Assessment/Plan 1. Multiple closed fractures of pelvis with stable disruption of pelvic ring with routine healing, subsequent encounter (S32.810D: Multiple fractures of pelvis with stable disruption of pelvic ring, subsequent encounter for fracture with routine healing) Completed ST rehab stay bowels ok, denies pain. Not used tramadol for 5 diays Needs walker Patient has a mobility limitation that impairs their ability to complete 1 or more MRADLs, can safely use the walker and the mobility deficit can be resolved with use of walker. 2. Invasive ductal carcinoma of right breast (C50.411: Malignant neoplasm of upper-outer quadrant of right female breast) nsg saw that she received her Kisqali dosing while here. 3. Vitamin D deficiency (E55.9: Vitamin D deficiency, unspecified) Rec'd 50,000 units weekly while here but will send home on 2000 units daily to simplify things. 4. HTN (hypertension) (I10: Essential (primary) hypertension) was not on lasix while here, and no edema 5. History of healed fragility fracture (Z87.310: Personal history of (healed) osteoporosis fracture) Right pubic rami- mult various pelvic fx's on xrays from multi falls? PCP will need attn to osteoporosis tx with multiple pelvic fragility fractures 6. Age-related cognitive decline (R41.81: Age-related cognitive decline) 9 of 15 on BIMS but otherwise formal testing not done. Poor insight, judgement and strong independent streak. Because of family reports, APS referral was made. Orders: cholecalciferol, 50 mcg = 1 tab(s), Oral, Daily, # 90 tab(s), Refills(s) 4, Pharmacy: [id number], 167, cm, 11/01/22 20:02:00 EDT, Height/Length Dosing, 90.3, kg, 11/01/22 20:02:00 EDT, Weight Dosing Home Health Udbs-jq-Cpvx Encounter Type: Medicare Reason for Frgx-gk-Mxna (Diagnosis): DISCHARGE DIAGNOSIS Skilled Encounter Detail I certify that I conducted and documented that a dyic-fy-fklt (F2F) encounter with the consumer occurred within the 90 days prior to the home health services start of care date, or within 30 days following the start of care date (inclusive of the start of care date), preceding the certification of medical necessity. Senior Living: Yes Physical Therapy: Yes Occupational Therapy: Yes Speech Therapy: _ Hand Woven Carpet And Rug Mender: _ Chemical Laboratory Chief: _ Need for Home Health Services I certify based on my findings that... a. Home health services are medically necessary for this patient, including either intermittent long term and/or therapy, AND b. The patient cannot leave his/her home due to the following reasons: Musculoskeletal - _ _ My clinical finding(s) support the need for these services because: _See Discharge note above Certificate of Medical Necessity for Home Health Medicare Requirement I certify that I am the qualifying treating physician for the above-named consumer and that the consumer needs medically necessary home health services for the treatment of consumer's illness or injury that are appropriate for the consumer's diagnosis, prognosis, functional and medical conditions. Follow-up No qualifying data available Problem List/Past Medical History Ongoing Age-related cognitive decline Axillary adenopathy Chronic edema Diabetes History of breast cancer History of healed fragility fracture HTN (hypertension) Hypercholesteremia Invasive ductal carcinoma of right breast Multiple closed fractures of pelvis with stable disruption of pelvic ring with routine healing, subsequent encounter Vitamin D deficiency H (more content not included)... [facility] Comment on above: Result Comment: Elec tronically Signed By: PILAR HANKS, Sammy\.br\Date and Time Signed: 12/14/22 16:36 EDT ONC - Otheron 12-12-2022 ONC - Other [id number]:1 27 [facility] ONC - Otheron 12-04-2022 ONC - Other [id number]:1 27 [facility] ONC - Otheron 11-21-2022 ONC - Other [id number]:1 27 [facility] XR Pelvis 1 or 2 Viewson XR Pelvis 1 or 2 Views Exam Date/Time: 11/20/2022 16:24 EDT Reason for Exam: Fracture Report IMPRESSION: THERE ARE NO ACUTE OSSEOUS CHANGES. CLINICAL HISTORY: Fracture COMPARISON: None. FINDINGS: Supine AP film of the pelvis demonstrates no evidence of a fracture or other bone abnormality involving the pelvis. Evaluation of the sacrum and coccyx is limited due to overlying bowel gas. There are degenerative changes of the right hip. Ordering Provider: Sammy QUEZADA FINAL REPORT Dictated: 11/21/2022 4:32 pm Vaughn Kinney MD, V. Signed (Electronic Signature): 11/21/2022 4:32 pm Signed by: Vaughn Kinney MD, V. Transcribed by: TOLU Technologist: AILYN Technical Comments Radiation Dose: Ka,r in mGy = na DAP = na Normal [facility] RAD - MISCon 11-20-2022 RAD - MISC [id number]:1 27 Normal [facility] Family Medicine Office/Clini c Noteon 11-07-2022 Family Medicine Office/Clinic Note History of Present Illness [facility] ADMIT from [facility] 11/02?16 multiple falls and increasing weakness, neighbor did not feel she was safe at home. currently admitted to [facility] with weakness, dementia. Was unable to ambulate in the ED, found with fractures of left superior and inferior pubic rami, probably subacute, bilateral sacral fractures also probably subacute and chronic appearing nondisplaced fractures of the right pubic rami. Incidental notice of significant distention of the bladder but on ED minicath only 50 ml output and 11/02 afternoon had only 100 ml output. Started on vitamin D. Here for ST rehab stay. Hb 12.1 CR 1.3 eGFR 43 ALB 3.5 vitamin D < 7 PMHx- , HTN, chronic edema, DM on no meds, metastatic breast cancer 2021 invasive ductal carcinoma Gr 2 - mets axillary, right glenoid, L4. No mets seen on 08/[address] Askew Oncology Dr. Caldera Physical Exam obese WF laying prone in bed, states her usual sleep position. Alert, good historian. Greets and jokes with aide bringing her breakfast tray. Lungs CTA Ht RRR wo murmur no distal edema, but skin is dry, somewhat furrowed and thickened suggesting hx of swelling. Normal coloration. Assessment/Plan 1. Multiple closed fractures of pelvis with stable disruption of pelvic ring with routine healing, subsequent encounter (S32.810D: Multiple fractures of pelvis with stable disruption of pelvic ring, subsequent encounter for fracture with routine healing) WBAT ST rehab stay ortho f/u 4 wks 2. Invasive ductal carcinoma of right breast (C50.411: Malignant neoplasm of upper-outer quadrant of right female breast) follows with Dr Caldera anastrozole, Vit B12 Pt brought [facility] 3. HTN (hypertension) (I10: Essential (primary) hypertension) lisinopril 10, simvastatin 40 Pt states doesn't take fish oils Pt has furosemide 40 qD on list, she hesitates and says takes it prn, but there is no filling hx on External Rx History whereas other meds are there regularly. Was added to list [address] Tabor visit but again no fill hx found. Will dc it but keep eye on legs as skin does look like gets swelled at times? 4. Vitamin D deficiency (E55.9: Vitamin D deficiency, unspecified) Vit D 50,000 weekly x 8 wks then 2000 units daily 5. History of healed fragility fracture (Z87.310: Personal history of (healed) osteoporosis fracture) Right pubic rami PCP will need attn to osteoporosis tx with multiple pelvic fragility fractures 6. Diabetes (E11.9: Type 2 diabetes mellitus without complications) not much known, no meds, no A1c in [employer] random BS's on BMP's in 120's Follow-up No qualifying data available Problem List/Past Medical History Ongoing Axillary adenopathy BMI 36.0-36.9,adult Chronic edema Diabetes History of breast cancer History of healed fragility fracture HTN (hypertension) Hypercholesteremia Invasive ductal carcinoma of right breast Vitamin D deficiency Historical No qualifying data Procedure/Surgical History Core needle biopsy of breast (07/04/2021), Tonsillectomy and adenoidectomy. Medications anastrozole 1 mg Tab, 1 mg= 1 tab(s), Oral, Daily, 11 refills ergocalciferol 50,000 intl units Cap, 02477 International_Unit= 1 cap(s), Oral, q7day Kisqali (200 mg daily dose) oral tablet, See Instructions, 1 refills lisinopril 10 mg Tab, 10 mg= 1 tab(s), Oral, Daily simvastatin 40 mg Tab, 40 mg= 1 tab(s), Oral, Once a day (at bedtime) Vitamin B12 1000 mcg Tab, 1000 mcg= 1 tab(s), Oral, Daily, 11 refills Allergies Bee Stings (SOB - Shortness of breath) penicillins (SOB - Shortness of breath) sulfa drugs (SOB - Shortness of breath) Social History Alcohol - Denies Alcohol Use, 07/04/2021 Substance Abuse - Denies Substance Abuse, 07/04/2021 Tobacco Never (less than 100 in lifetime) Tobacco Use:. Never Smokeless Tobacco Use:., 07/04/2021 Family History Patient was adopted Immunizations Vaccine Date Status influenza virus vaccine, inactivated 01/2021 Recorded Diagnostic Results (11/02/2022 13:[address] Pelvis w/o Contrast) Fractures of the left superior and inferior pubic rami, probably subacute, with nonspecific loculated collection containing gas as discussed. Bilateral sacral fractures, probably subacute, and may be insufficiency type fractures. Chronic appearing nondisplaced fractures of the right pubic rami. Significant distention of the bladder, consider decompression with Dooley catheter as clinically indicated. [1] [1] CT Pelvis w/o Contrast; Linda HANKS, Christian Hernandes 11/02/2022 13:54 EDT [facility] Comment on above: Result Comment: Elec tronically Signed By: PILAR HANKS, Sammy\.br\Date and Time Signed: 11/06/22 22:21 EDT Discharge Documentationon Discharge Documentation [id number]:1 27 [facility] Message from Medicareon 10-20 Message from Medicare [id number]#[id number]:1 27 [facility] Transfer Documentson 023 Transfer Documents [id number]:1 27 [facility] Insurance Correspondence Off iceon 11-05-2022 Insurance Correspondence Office [id number]#1.00CD:12 7 Normal [facility] Inpatient Clinical Summaryon 11-04-2022 Inpatient Clinical Summary [address] [address] Clinical Summary Person Information: Name: MARLEN STALEY Age: 72 Years : 1950 Sex: Female PCP: Rickey Askew MD Marital Status: Phone: [phone] Race: White Ethnicity: Non- or Language: Martiniquais MRN: Visit Id: Visit Reason: Weakness or fatigue; Trauma - minor; Multiple falls; WEAKNESS, CHEST PAIN Speciality: Acuity: Enc Type: Observation Med Service: Medical Arrival: 11/01/2022 19:53:41 Discharge: Dispo Type: Admitted as IP to this [facility] Address: [address] [place] [address] DR [place] [id number] Provider Notes: Addendum by Trevor HANKS, [facility] on November 04, 2022 12:36:52 EDT Diagnosis: 1:Generalized weakness; 2:HTN (hypertension); 3:Hypercholesteremia; 4:History of breast cancer; 5:On deep vein thrombosis (DVT) prophylaxis; Multiple falls Problems Active History of breast cancer Axillary adenopathy BMI 36.0-36.9,adult Invasive ductal carcinoma of right breast Breast mass, right Hypercholesteremia Chronic edema HTN (hypertension) Diabetes Smoking Status: Never Smoker Functional Status: Sensory Deficits: History of Falls: Immediately prior to hospitalization Mobility Assistance Prior to Admission: Independent ADLs: Independent Current Level of Assistance for Self-Care/Mobility: Cognitive Status: Oriented x 3 Allergies penicillins (SOB - Shortness of breath) sulfa drugs (SOB - Shortness of breath) Bee Stings (SOB - Shortness of breath) Measurements: Height: 167.64 cm Weight: 88.2 kg Blood Pressure: 122 mmHg / 83 mmHg BMI: 30.78 kg/m2 Procedures No Procedures Documented Immunizations No Immunizations Documented This Visit Final Med List: anastrozole (anastrozole 1 mg Tab) 1 Tablets By Mouth every day. Refills: 11. anastrozole (Arimidex 1 mg Tab) 1 Tablets By Mouth every day. Refills: 3. cyanocobalamin (Vitamin B12 1000 mcg Tab) 1 Tablets By Mouth every day. Refills: 11. ergocalciferol (ergocalciferol 50,000 intl units Cap) 1 Capsules By Mouth every 7 days. Refills: 0. furosemide (furosemide 40 mg Tab) 1 Tablets By Mouth every day. lisinopril (lisinopril 10 mg Tab) 1 Tablets By Mouth every day. omega-3 polyunsaturated fatty acids (Fish Oil 1000 mg oral capsule) 1 Capsules By Mouth every day. ondansetron (ondansetron 8 mg Tab) 8 Milligram By Mouth every 8 hours as needed Nausea. Refills: 3. ribociclib (Kisqali (200 mg daily dose) oral tablet) 2 tab(s) take for 21 days, withhold for 7 days, then repeat cycle. 11 REFILLS. Refills: 1. ribociclib (Kisqali (200 mg daily dose) oral tablet) 1 tab(s) Oral take for 21 days, withhold for 7 days, then repeat cycle. Refills: 1. ribociclib (Kisqali (200 mg daily dose)) 200 Milligram 3 times a day. ribociclib (Kisqali (400 mg daily dose) oral tablet) 1 tab by mouth for 21 days, withhold for 7 days then repeat cycle.. Refills: 1. ribociclib (ribociclib 200 mg oral tablet) take 1 tab(s) po days 1-21 take for 21 days, withhold for 7 days, then repeat cycle. Refills: 11. simvastatin (simvastatin 40 mg Tab) 1 Tablets By Mouth once a day (at bedtime). Care Team Members: Attending Physician: Mariia LOPEZ DO Consulting Physician: Gavino Lugo DO Referring Physician: Follow up: With: Address: When: Hollis MERRILL [address] [facility], [address] [place] [address] Business (1) Comments: Urinary retnetion w/dooley With: Address: When: Gavino Lugo [address] [place] [address] Business (1) Comments: Call for followup appointment in 4 weeks for repeat pelvis xray With: Address: When: Rickey Askew [address] [place] [address] Business (1) Type Location Start Finish State Secured Appointment Type Secured Location 11/22/2022 2:15 PM 11/22/2022 2:30 PM Confirmed Patient Education Information: Weakness Normal [facility] Inpatient Patient Summaryon 11-04-2022 Inpatient Patient Summary [address] [address] Patient Discharge Instructions PERSON INFORMATION Name: MARLEN STALEY Date of : 1950 Current Date: 11/04/2022 12:38:52 PHYSICIANS Admitting Physician: Mariia LOPEZ DO Primary Care Physician: Rickey Askew MD PCP Comment: Discharge Diagnosis: 1:Generalized weakness; 2:HTN (hypertension); 3:Hypercholesteremia; 4:History of breast cancer; 5:On deep vein thrombosis (DVT) prophylaxis; Multiple falls Condition at Discharge: Stable MARLEN STALEY has been given the following list of follow-up instructions, prescriptions, and patient education materials: PATIENT FOLLOW-UP INFORMATION Diet: Regular Discharge Activity: Ambulate as tolerated, Arrange for a responsible adult supervision for 24 hours, Expect mild pain, Activity as tolerated Discharge Restrictions: No driving, Do not operate machinery or tools, Do not make important decisions for 24 hours, Do not drink alcoholic beverages for 24 hours Wound Care Instructions: Remove Your Dressing In Days Call Your Doctor For: Persistent or heavy bleeding, Temperature above 101.5 degrees, Redness, swelling, or pus at operative site, Severe pain at the operative site, Persistent vomiting IF UNABLE TO CONTACT YOUR PHYSICIAN AND YOU FEEL IT IS AN EMERGENCY, GO TO THE NEAREST EMERGENCY ROOM OR CALL 911 Home Treatment: Devices/Equipment: Walker Special Services: Additional Instructions: Please follow up w/Urology and Orthopedics Primary Care Physician to provide the following pending test results: None Follow up: With: Address: When: Hollis MERRILL [address], [address], [employer] [facility] [place] [address] [place] [address] Business (1) Comments: Urinary retnetion w/dooley With: Address: When: Gavino Lugo [address] [facility] [place] [address] Business (1) Comments: Call for followup appointment in 4 weeks for repeat pelvis xray With: Address: When: Rickey Askew [address] [facility] [facility] [place] [address] Business (1) In the event that this physician does not participate in your insurance network, please consult with your insurance company to find a nearby participating provider. Type Location Start Finish State Secured Appointment Type Secured Location 11/22/2022 2:15 PM 11/22/2022 2:30 PM Confirmed Comment: DAVID Christianson BARBARA, have received the attached patient education materials/instructions and have verbalized understanding: Patient Signature ____ Date Clinican/Nurse Signature Date HERE ARE THE MEDICATION CHANGES THAT OCCURRED DURING YOUR HOSPITAL STAY New Medications [facility], [address] [place], [place] [id number], [phone] ergocalciferol (ergocalciferol 50,000 intl units Cap) 1 Capsules By Mouth every 7 days. Refills: 0. Last Dose: Next Dose: Medications to Continue with No Changes Other Medications anastrozole (anastrozole 1 mg Tab) 1 Tablets By Mouth every day. Refills: 11. Last Dose: Next Dose: anastrozole (Arimidex 1 mg Tab) 1 Tablets By Mouth every day. Refills: 3. Last Dose: Next Dose: cyanocobalamin (Vitamin B12 1000 mcg Tab) 1 Tablets By Mouth every day. Refills: 11. Last Dose: Next Dose: furosemide (furosemide 40 mg Tab) 1 Tablets By Mouth every day. Last Dose: Next Dose: lisinopril (lisinopril 10 mg Tab) 1 Tablets By Mouth every day. Last Dose: Next Dose: omega-3 polyunsaturated fatty acids (Fish Oil 1000 mg oral capsule) 1 Capsules By Mouth every day. Last Dose: Next Dose: ondansetron (ondansetron 8 mg Tab) 8 Milligram By Mouth every 8 hours as needed Nausea. Refills: 3. Last Dose: Next Dose: ribociclib (Kisqali (200 mg daily dose) oral tablet) 2 tab(s) take for 21 days, withhold for 7 days, then repeat cycle. 11 REFILLS. Refills: 1., this had 11 refills done via phone with Myrna/Daniel Last Dose: Next Dose: ribociclib (Kisqali (200 mg daily dose) oral tablet) 1 tab(s) Oral take for 21 days, withhold for 7 days, then repeat cycle. Refills: 1. Last Dose: Next Dose: ribociclib (Kisqali (200 mg daily dose)) 200 Milligram 3 times a day. Last Dose: Next Dose: ribociclib (Kisqali (400 mg daily dose) oral tablet) 1 tab by mouth for 21 days, withhold for 7 days then repeat cycle.. Refills: 1. Last Dose: Next Dose: ri (more content not included)... Normal [facility] Inpatient Patient Summary MARLEN STALEY :1950 Visit Date:11/01/2022 Inpatient Discharge Instructions Your Care Team Admitting Physician - Mariia LOPEZ DO Consulting Physician - Gavino Lugo DO Reason for Your Visit fall Your Diagnosis Generalized weakness HTN (hypertension) Hypercholesteremia History of breast cancer On deep vein thrombosis (DVT) prophylaxis Multiple falls Multiple falls Trauma - minor Weakness or fatigue Tests Performed Automated Diff BMP CBC w/ Auto Diff eGFR Folate Level Hepatic Function Panel RPR with Conf Rfx Troponin 0 Hr. TSH With T4fr Reflex UA With Cult Reflex Vitamin B12 Level Vitamin D [address] Pelvis w/o Contrast Pelvis AP only XR Chest Single View XR Sacrum and Coccyx Min 2 Views This Is Your Medications List anastrozole (Arimidex 1 mg Tab) anastrozole (anastrozole 1 mg Tab) cyanocobalamin (Vitamin B12 1000 mcg Tab) ergocalciferol (ergocalciferol 50,000 intl units Cap) furosemide (furosemide 40 mg Tab) lisinopril (lisinopril 10 mg Tab) omega-3 polyunsaturated fatty acids (Fish Oil 1000 mg oral capsule) ondansetron (ondansetron 8 mg Tab) ribociclib (Kisqali (200 mg daily dose) oral tablet) ribociclib (Kisqali (200 mg daily dose) oral tablet) ribociclib (Kisqali (200 mg daily dose)) ribociclib (Kisqali (400 mg daily dose) oral tablet) ribociclib (ribociclib 200 mg oral tablet) simvastatin (simvastatin 40 mg Tab) Procedure History Core needle biopsy of breast (07/04/2021), Tonsillectomy and adenoidectomy. Discharge Vitals Temperature (Oral) 36.8 ?C Heart Rate (Monitored) 78 Respiratory Rate 21 Blood Pressure 122/83 Weight 88.2 kg What to do next Instructions From Your Doctor Event Name Event Result Discharge Activity Ambulate as tolerated, Arrange for a responsible adult supervision for 24 hours, Expect mild pain, Activity as tolerated Discharge Restrictions No driving, Do not operate machinery or tools, Do not make important decisions for 24 hours, Do not drink alcoholic beverages for 24 hours Discharge Diet(s) Regular Call Your Doctor For Persistent or heavy bleeding, Temperature above 101.5 degrees, Redness, swelling, or pus at operative site, Severe pain at the operative site, Persistent vomiting [facility]uled Follow-Up Appointments 2022 2:15 PM EDT With: Senthil Caldera DO Where: [facility] New Follow Up Appointments after Discharge Follow Up with Gavino Lugo When: Comments: Call for followup appointment in 4 weeks for repeat pelvis xray Where: [address] [place] [address]- [employer] [facility] (1) Follow Up with Rickey Askew When: In 0 days Where: [address] [place] [address]- [employer] [facility] (1) Medications What How Much When Why Instructions Next Dose New ergocalciferol (ergocalciferol 50,000 intl units Cap) 1 Capsules By Mouth Every 7 days Pickup at [facility] Unchanged anastrozole (anastrozole 1 mg Tab) 1 Tablets By Mouth Every day Unchanged anastrozole (Arimidex 1 mg Tab) 1 Tablets By Mouth Every day Breast CA Unchanged cyanocobalamin (Vitamin B12 1000 mcg Tab) 1 Tablets By Mouth Every day Breast CA Unchanged furosemide (furosemide 40 mg Tab) 1 Tablets By Mouth Every day Unchanged lisinopril (lisinopril 10 mg Tab) 1 Tablets By Mouth Every day Unchanged omega-3 polyunsaturated fatty acids (Fish Oil 1000 mg oral capsule) 1 Capsules By Mouth Every day Unchanged ondansetron (ondansetron 8 mg Tab) 8 Milligram By Mouth Every 8 hours as needed for Nausea Breast CA Unchanged ribociclib (Kisqali (200 mg daily dose) oral tablet) See instructions Breast CA 2 tab(s) take for 21 days, withhold for 7 days, then repeat cycle. 11 REFILLS Unchanged ribociclib (Kisqali (200 mg daily dose) oral tablet) See instructions Breast CA 1 tab(s) Oral take for 21 days, withhold for 7 days, then repeat cycle Unchanged ribociclib (Kisqali (200 mg daily dose)) 200 Milligram 3 times a day Unchanged ribociclib (Kisqali (400 mg daily dose) oral tablet) See instructions Breast CA 1 tab by mouth for 21 days, withhold for 7 days then repeat cycle. Unchanged ribociclib (ribociclib 200 mg oral tablet) See instructions Breast CA take 1 tab(s) po days 1-21 take for 21 days, withhold for 7 days, then repeat cycle Unchanged simvastatin (simvastatin 40 mg Tab) 1 Tablets By Mouth Once a day (at bedtime) Pharmacy Information [facility]: [address] [place], [place] [id number] [phone] Test Results CBC BMP WBC: 6.6 E9/L (11/01/22 22:01:00) Glucose Lvl: 130 mg/dL (11/01/22 22:01:00) RBC: 3.7 E12/L Low (11/01/22 22:01:00) BUN: 26 mg/dL High (11/01/22 22:01:00) HGB: 12.1 gm/dL (11/01/22 22:01:00) Creatinine: 1.3 mg/dL (11/01/22 22:01:00) Hct: 36.5 % (11/01/22 22:01:00) BUN (more content not included)... Normal [facility] 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 Note - Attila e Manageron 11-04-2022 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 Note - Filling Hauler CRM to room to discuss DC planning. Patient is awake, alert and oriented. Patient is here for weakness, fall, CP. She has a sacral rami fx that is non surgical. PT and OT rec SNF. Patient would like referral to TCU as her spouse is there. Patient is here for observation. PCP, DME and insurance verified. DC date once SNF arranged. CRM provided contact info, white board updated. Anticipated DC once SNF arranged Precert is back and can go to tcu/[facility] BED [address] [facility] Comment on above: Result Comment: Elec tronically Signed By: Florence Ortega\.br\Date and Time Signed: 11/04/22 13:07 EDT CHEMISTRYOrdered By: SYSTEM SYSTEM on 11-03-2022 25-hydroxyvitamin D3 [Mass/Vol] ng/mL Low 30.0 - 100.0 ng/mL [facility] Remisol 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 Note - Attila e Manageron 11-03-2022 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 Note - Filling Hauler CRM to room to discuss DC planning. Patient is awake, alert and oriented. Patient is here for weakness, fall, CP. She has a sacral rami fx that is non surgical. PT and OT rec SNF. Patient would like referral to TCU as her spouse is there. Patient is here for observation. PCP, DME and insurance verified. DC date once SNF arranged. CRM provided contact info, white board updated. Anticipated DC once SNF arranged [facility] Comment on above: Result Comment: Elec tronically Signed By: Florence Ortega\.br\Date and Time Signed: 11/03/22 10:38 EDT Progress Note-Physicianon Progress Note-Physician Basic Informatio n This is a 72-year-old female with a medical history significant for metastatic breast cancer who comes in with pubic rami fracture and physical deconditioning. Assessment/Plan Physical deconditioning Pubic rami fracture Vitamin D deficiency -Spoke with orthopedic surgeon appreciate assistance likely nonoperative weightbearing as tolerated we will wait for orthopedic surgeon to examine patient. -AP pelvis was ordered -Wildorado -PT recommended SNF will send her to TCU if they accept -Will add vitamin D Metastatic breast cancer ? Continue with chemotherapeutics ? We will bring in her home medications which we verified by pharmacy that okay to use - CT pelvis r/o mets: Over distended bladder, postvoid residual, will place Dooley if indicated HLD: Continue with simvastatin Hypertension: Continue with lisinopril, add Norvasc Time: 35 minutes Medications Reviewed: Plan: Plan was discussed with patient and family (if applicable) at bedside Subjective Patient was seen and examined. He was resting in bed comfortably. No acute complaints. Review of Systems Denies any headaches change in vision chest pain chest tightness abdominal pain abdominal discomfort Objective Vitals & Measurements T: 36.8 ?C(Oral) TMIN: 36.3 ?C(Oral) TMAX: 36.8 ?C(Oral) HR: 79(Monitored) RR: 18 BP: 144/80 SpO2: 94% WT: 87.1 kg Intake & Output This visit (24 hour periods starting at 07:00 EDT) 11/03/22 * 11/02/22 11/01/22 Total Summary Intake mL -- 480 0.5 Output mL -- 1,500 50 Fluid Balance -- -1,020 -49.5 Intake (2) Oral Intake mL -- 480 -- ketorolac mL -- -- 0.5 Total -- 480 0.5 Output (2) Urine Catheter mL -- 1,000 -- Urine Output Initial mL -- 500 50 Total -- 1,500 50 Counts (0) * This column has not completed the indicated time period. Physical Exam General: alert, no acute distress Psychiatric: cooperative, affect appropriate for age Neurological: awake, alert, oriented, speech normal Cardiovascular: regular rate and rhythm, normal no overt murmurs Respiratory: respirations non labored no adventitious breath sounds Gastrointestinal: soft NT, NG, NR Extremities: no edema, no wound Lab Results Vitamin D 25 Hydroxy: <7.0 Low (11/03/22 05:54:00) UA Spec Desc: Catheter (11/02/22 17:30:00) UA Color: Yellow2 (11/02/22 17:30:00) UA Clarity: Clear2 (11/02/22 17:30:00) UA Spec Grav: 1.025 (11/02/22 17:30:00) UA pH: 6.0 (11/02/22 17:30:00) UA Protein: Trace2 Abnormal (11/02/22 17:30:00) UA Glucose: NEGATIVE1 (11/02/22 17:30:00) UA Ketones: Trace2 Abnormal (11/02/22 17:30:00) UA Bili: NEGATIVE1 (11/02/22 17:30:00) UA Blood: Trace2 Abnormal (11/02/22 17:30:00) UA Nitrite: NEGATIVE1 (11/02/22 17:30:00) UA Urobilinogen: 1.0 (11/02/22 17:30:00) UA Leuk Est: NEGATIVE1 (11/02/22 17:30:00) UA RBC: 4-20 (11/02/22 17:30:00) UA Squam Epithelial: 3-4 (11/02/22 17:30:00) UA WBC: 0-5 (11/02/22 17:30:00) UA Bacteria: Trace2 (11/02/22 17:30:00) Problem List/Past Medical History Ongoing Axillary adenopathy BMI 36.0-36.9,adult Breast mass, right Chronic edema Diabetes History of breast cancer HTN (hypertension) Hypercholesteremia Invasive ductal carcinoma of right breast Historical No qualifying data Medications Inpatient acetaminophen 325 mg Tab, 650 mg= 2 tab(s), Oral, q6hr, PRN Benadryl 25 mg Cap, 25 mg= 1 cap(s), Oral, q6hr, PRN ergocalciferol 50,000 intl units Cap, 29019 unit(s)= 1 cap(s), Oral, q7day hydrALAZINE 20 mg/mL Inj, 10 mg= 0.5 mL, IV Push, q6hr, PRN kisqali 200mg, Normal Patient Dose, Oral, q24hr lisinopril 10 mg Tab, 10 mg= 1 tab(s), Oral, Daily Lovenox 40 mg/0.4 mL SC Billie, 40 mg= 0.4 mL, SubCutaneous, Daily [place]orado 5/325 Tab, 1 tab(s), Oral, q6hr, PRN Phenergan 25 mg/mL Injection, 12.5 mg= 0.5 mL, IV Push, q6hr, PRN simvastatin 40 mg Tab, 40 mg= 1 tab(s), Oral, Once a day (at bedtime) Zofran 4 mg/2 mL Injection, 4 mg= 2 mL, IV Push, q6hr, PRN Home anastrozole 1 mg Tab, 1 mg= 1 tab(s), Oral, Daily, 11 refills Arimidex 1 mg Tab, 1 mg= 1 tab(s), Oral, Daily, 3 refills Fish Oil 1000 mg oral capsule, 1000 mg= 1 cap(s), Oral, Daily, Not taking furosemide 40 mg Tab, 40 mg= 1 tab(s), Oral, Daily Kisqali (200 mg daily dose), 200 mg, TID Kisqali (200 mg daily dose) oral tablet, See Instructions, 1 refills Kisqali (200 mg daily dose) oral tablet, See Instructions, 1 refills, Not taking Kisqali (400 mg daily dose) oral tablet, See Instructions, 1 refills lisinopril 10 mg Tab, 10 mg= 1 tab(s), Oral, Daily ondansetron 8 mg Tab, 8 mg, Oral, q8hr, PRN, 3 refills, Not taking ribociclib 200 mg oral tablet, See Instructions, 11 refills simvastatin 40 mg Tab, 40 mg= 1 tab(s), Oral, Once a day (at bedtime) Vitamin B12 1000 mcg Tab, 1000 mcg= 1 tab(s), Oral, Daily, 11 refills Pt was found to have urinary retention, dooley was placed, she can follow up out pt w/urology Normal [facility] Comment on above: Result Comment: Elec tronically Signed By: Trevor HANKS, Wyatt\.br\Date and Time Signed: 11/03/22 08:08 EDT RPR with Conf Rfxon 11-04-19 Reagin Ab RPR Ql (S) Non-Reactive Invalid Interpretation Code Non Reactive [facility] Comment on above: Result Comment: Perf ormed at: [facility] [address] [id number] PhD [place] Avelar Performed By: #### 1 [id number], [id number], 6390493, 5473913, [id number], [id number], [id number] #### [facility] [address] [place] [address] Vitamin D 25 Hydroxyon 11-03 25-hydroxyvitamin D3 [Mass/Vol] ng/mL Low 30.0-100.0 [facility] Comment on above: Result Comment: Vit beltran D deficiency has been defined as a level of serum 25-OH vitamin D less than 20 ng/mL (1,2) by the [place]an of Medicine and an Endocrine Society practice guideline. The Endocrine Society further defined vitamin D insufficiency as a level between 21 and 29 ng/mL (2). 1. IOM (Kennan of Medicine). 2010. Dietary reference intakes for calcium and D. [place]: The National Academies Press. 2. Katlin MF, Taylor ISRAEL, Jarad DUKE, et al. Evaluation, treatment, and prevention of vitamin D deficiency: an Endocrine Society clinical practice guideline. JCEM. 2010; 96 (7):1911-30. Performed By: #### 1 [id number], [id number], 5600131, 1429901, 1630353, 48503947, 8320406, [id number] #### [facility] [address] [place] [address] Auto Diffon 11-02-2022 Basophils/100 WBC (Bld) 1.2 % Normal 0.0-2.0 [facility] Comment on above: Order Comment: Order added by Discern Expert. Performed By: #### 1 [id number], [id number], 5491463, 7429984, 6440497, 84803218, 1872341, [id number] #### [facility] [address] [place] [address] Basophils/Leukocytes Auto (Bld) [Pure # fraction] 0.1 E9/L Normal 0.0-0.2 [facility] Comment on above: Order Comment: Order added by Discern Expert. Performed By: #### 1 [id number], 8077584, 1646887, 9926926, 7627210, 15926648, 6500507, [id number] #### [facility] [address] [place] [address] Eosinophils/100 WBC (Bld) 3.3 % Normal 0.0-8.0 [facility] Comment on above: Order Comment: Order added by Discern Expert. Performed By: #### 1 [id number], 8917516, 1000196, 9238644, 3595690, 06719937, 4946020, [id number] #### [facility] [address] [place] [address] Eosinophils/Leukocytes Auto (Bld) [Pure # fraction] 0.2 E9/L Normal 0.0-0.5 [facility] Comment on above: Order Comment: Order added by Discern Expert. Performed By: #### 1 [id number], 1798565, 3022800, 7380020, 7995997, 34483907, 7169267, 35644807 #### [facility] [address] [place] [address] Lymphocytes/100 WBC (Bld) 24.6 % Normal 14.0-50.0 [facility] Comment on above: Order Comment: Order added by Discern Expert. Performed By: #### 1 [id number], 6551480, 7393850, 2921933, 9505183, 02611568, 0219481, 79048491 #### [facility] [address] [place] [address] Lymphocytes/Leukocytes Auto (Bld) [Pure # fraction] 1.6 E9/L Normal 1.0-4.0 [facility] Comment on above: Order Comment: Order added by Discern Expert. Performed By: #### 1 [id number], 9024680, 4508185, 6034007, 1607184, 91508608, 6355704, 01787362 #### [facility] [address] [place] [address] Monocytes/100 WBC (Bld) 5.0 % Normal 4.0-14.0 [facility] Comment on above: Order Comment: Order added by Faviola Expert. Performed By: #### 1 [id number], 8377225, 6998592, 1458081, 7605094, 11972126, 6582167, [id number] #### [facility] [address] [place] [address] Monocytes/Leukocytes Auto (Bld) [Pure # fraction] 0.3 E9/L Normal 0.2-1.0 [facility] Comment on above: Order Comment: Order added by Discern Expert. Performed By: #### 1 [id number], 4514896, 8841620, 4507075, 4895086, 11561747, 5590046, [id number] #### [facility] [address] [place] [address] Neutrophils/100 WBC (Bld) 65.9 % Normal 36.0-75.0 [facility] Comment on above: Order Comment: Order added by Discern Expert. Performed By: #### 1 [id number], 5839884, 9476790, 2189329, 9385888, 64213622, 6402045, [id number] #### [facility] [address] [place] [address] Neutrophils/Leukocytes Auto (Bld) [Pure # fraction] 4.4 E9/L Normal 2.0-7.5 [facility] Comment on above: Order Comment: Order added by Discern Expert. Performed By: #### 1 [id number], 7180323, 0404937, 3724491, 4267500, 84539025, 7825211, 48082970 #### [facility] [address] [place] [address] BMP 11-02-2022 Creatinine [Mass/Vol] 1.3 mg/dL Normal 0.5-1.3 [facility] Comment on above: Performed By: #### 1 [id number], 4867736, 7339113, 6109654, 7226585, 91657653, 2950668, 76028671 #### [facility] [address] [place] [address] Urea nitrogen [Mass/Vol] 26 mg/dL High 5-21 [facility] Comment on above: Performed By: #### 1 [id number], 8450675, 5773468, 1238881, 5555927, 00907955, 8956898, [id number] #### [facility] [address] [place] [address] Urea nitrogen/Creatinine [Mass ratio] 20 No Units Normal 10-20 [facility] Comment on above: Performed By: #### 1 [id number], 5744062, 2735157, 9287052, 3349015, 62660419, 6463618, 62537678 #### [facility] [address] [place] [address] Anion gap [Moles/Vol] 15 mmol/L Normal 6-16 [facility] Comment on above: Performed By: #### 1 3745702, 3809330, 1953922, 6548951, 6664778, 76094019, 0548548, 03527557 #### [facility] [address] [place] [address] Calcium [Mass/Vol] 9.1 mg/dL Normal 8.9-11.1 [facility] Comment on above: Performed By: #### 1 1389622, 8436431, 2843301, 8923144, 3969927, 07456676, 1283684, 40753519 #### [facility] [address] [place] [address] Chloride [Moles/Vol] 105 mmol/L Normal 101-111 [facility] Comment on above: Performed By: #### 1 3606159, 3971869, 6302047, 0023383, 3924125, 80605699, 4668722, 27025266 #### [facility] [address] [place] [address] CO2 [Moles/Vol] 22 mmol/L Normal 21-31 [facility] Comment on above: Performed By: #### 1 2889431, 0905208, 3361487, 4110113, 5005978, 07937771, 3854029, 05756641 #### [facility] [address] [place] [address] Glucose [Mass/Vol] 130 mg/dL Normal 55-199 [facility] Comment on above: Result Comment: If t his glucose result represents a fasting glucose, interpretation should refer to the following reference range: 55-99 mg/dL Performed By: #### 1 3921699, 3506605, 7475896, 5010347, 2222296, 23430865, 9544762, 07400941 #### [facility] [address] [place] [address] Potassium [Moles/Vol] 4.2 mmol/L Normal 3.5-5.3 [facility] Comment on above: Performed By: #### 1 8653163, 9370192, 8532491, 0881165, 0635669, 07292851, 2872079, 04151589 #### [facility] [address] [place] [address] Sodium [Moles/Vol] 138 mmol/L Normal 135-145 [facility] Comment on above: Performed By: #### 1 0080880, 4169407, 9973642, 6248984, 6949071, 55838615, 2036950, 31090795 #### [facility] [address] [place] [address] CBC w/ Auto Diffon 3 Erythrocyte distribution width (RBC) [Ratio] 16.3 % High 10.9-14.2 [facility] Comment on above: Performed By: #### 1 3620452, 4378048, 7615577, 6180252, 1554572, 78336313, 3001976, 49349386 #### [facility] [address] [place] [address] Hematocrit (Bld) [Volume fraction] 36.5 % Normal 34.0-46.0 [facility] Comment on above: Performed By: #### 1 6245722, 2591663, 8423843, 7415267, 9748555, 79761558, 2060055, 36114067 #### [facility] [address] [place] [address] Hemoglobin (Bld) [Mass/Vol] 12.1 g/dL Normal 12.0-16.0 [facility] Comment on above: Performed By: #### 1 8213304, 8566600, 7444668, 7860838, 2367397, 53827285, 7736036, 14060345 #### [facility] [address] [place] [address] MCH (RBC) [Entitic mass] 32.9 pg Normal 27.0-34.0 [facility] Comment on above: Performed By: #### 1 7556384, 2808648, 7679995, 2973821, 9197037, 68540603, 3049488, 42455747 #### [facility] [address] [place] [address] MCHC (RBC) [Mass/Vol] 33.1 g/dL Normal 31.4-36.0 [facility] Comment on above: Performed By: #### 1 0075318, 2706236, 5999991, 3623670, 9436341, 44216066, 3420656, 70026351 #### [facility] [address] [place] [address] MCV (RBC) [Entitic vol] 99.3 fL Normal 80.0-100.0 [facility] Comment on above: Performed By: #### 1 6048052, 3103445, 7115640, 4110445, 7271545, 72478281, 0291543, 84132768 #### [facility] [address] [place] [address] Platelet mean volume (Bld) [Entitic vol] 7.3 fL Normal 6.4-10.8 [facility] Comment on above: Performed By: #### 1 1598473, 7354170, 4130118, 0707546, 9442929, 62111653, 8899232, 94184597 #### [facility] [address] [place] [address] Platelets (Bld) [#/Vol] 229.0 E9/L Normal 150. 0-500. 0 [facility] Comment on above: Performed By: #### 1 8235311, 9883118, 4458871, 8645092, 9418254, 58941373, 1120613, 95923500 #### [facility] [address] [place] [address] RBC (Bld) [#/Vol] 3.7 E12/L Low 4.3-5.9 [facility] Comment on above: Performed By: #### 1 1783730, 4442681, 2086940, 0538854, 4354642, 31257389, 8256171, 53186598 #### [facility] [address] [place] [address] WBC corrected for nucl RBC Auto (Bld) [#/Vol] 6.6 E9/L Normal 4.0-11.0 [facility] Comment on above: Performed By: #### 1 1682091, 4235987, 7730436, 2531581, 1589156, 17498784, 8066040, 38687635 #### [facility] [address] [place] [address] CT Pelvis w/o Contraston CT Pelvis w/o Contrast Exam Date/Time: 11/02/2022 13:54 EDT Reason for Exam: Pelvic fracture Report IMPRESSION: Fractures of the left superior and inferior pubic rami, probably subacute, with nonspecific loculated collection containing gas as discussed. Bilateral sacral fractures, probably subacute, and may be insufficiency type fractures. Chronic appearing nondisplaced fractures of the right pubic rami. Significant distention of the bladder, consider decompression with Dooley catheter as clinically indicated. Degenerative changes as discussed. CT Pelvis w/o Contrast HISTORY: Pelvic fracture TECHNIQUE: Routine CT of the pelvis without contrast CONTRAST: None. All CT scans at this facility use dose modulation, iterative reconstruction, and/or weight based dosing when appropriate to reduce radiation dose to as low as reasonably achievable. COMPARISON: Radiographs 11/02/2022. RESULT: Fractures involving the left superior and inferior pubic rami, with some associated sclerosis, age-indeterminate but probably subacute and could be insufficiency type. Chronic appearing fractures of the right superior and inferior pubic rami, with associated sclerosis. Bilateral sacral fractures with associated sclerosis, probably at least subacute and may be insufficiency type fractures. No evidence for acute hip fracture. Mild chronic appearing wedge deformity involving the superior end plate of L3. Degenerative changes in the visualized lower lumbar spine. SI joints and pubic symphysis appear intact. Degenerative changes both hips, severe on the right. Visualized bowel unremarkable. Significant distention of the bladder, consider decompression with Dooley catheter as clinically indicated. Large fat-containing bilateral groin hernias. Diffuse vascular calcifications. Loculated collection within the left hemipelvis adjacent to the pubic rami fractures containing foci of gas, which may represent hematoma with superimposed infection. Report Ordering Provider: Wyatt Murray FINAL REPORT Dictated: 11/02/2022 2:42 pm Christian Mckeon MD. Signed (Electronic Signature): 11/02/2022 2:42 pm Signed by: Christian Mckeon MD Transcribed by: TOLU Technologist: LASHAY Technical Comments Rectal Contrast Given? No Oral contrast amount in ml's: 0 Normal [facility] ED Clinical Summaryon 2022 ED Clinical Summary (Inserted Image. Belle ble to display) [place] [id number] ED Clinical Summary Person Information Name: MARLEN STALEY/[facility] Age: 72 Years : 1950 Sex: Female Language: Martiniquais PCP: Rickey Askew MD Marital Status: Phone: [phone] Visit Id: Visit Reason: Weakness or fatigue; Trauma - minor; Multiple falls; WEAKNESS, CHEST PAIN Speciality: Acuity: 2 Enc Type: Observation Med Service: Emergency Arrival: 11/01/2022 19:53:41 Discharge: LOS: 000 07:19 Checkin: 11/01/2022 19:53:41 Checkout: 11/02/2022 03:12:35 Dispo Type: Admitted as IP to this [facility] EVENTS: Event Name Event Status Request Date/Time Start Date/Time Complete Date/Time Arrive Complete 11/01/2022 19:53:41 11/01/2022 19:53:41 11/01/2022 19:53:41 Document Home Meds Request 11/01/2022 19:53:41 Triage Complete 11/01/2022 19:53:41 11/01/2022 20:02:00 11/01/2022 20:02:00 EKG Complete 11/01/2022 19:56:09 11/01/2022 19:58:34 Bed Assign Complete 11/01/2022 19:57:10 11/01/2022 19:57:10 11/01/2022 19:57:10 Dr Exam Complete 11/01/2022 19:57:10 11/01/2022 20:01:45 11/01/2022 20:01:45 RN Exam Complete 11/01/2022 19:57:10 11/01/2022 20:35:10 11/01/2022 20:35:10 Registration Complete 11/01/2022 20:01:45 11/01/2022 20:27:41 11/01/2022 20:27:41 Trauma II Request 11/01/2022 20:11:35 Reg Complete Request 11/01/2022 20:27:41 Reg Bed Request Complete 11/01/2022 20:27:41 11/01/2022 20:27:41 11/01/2022 20:27:41 X-Ray Cancel 11/01/2022 20:32:17 11/01/2022 20:32:56 11/01/2022 21:33:38 Trauma II Request 11/01/2022 20:34:06 Pending Labs Complete 11/01/2022 21:49:49 11/01/2022 23:34:11 Lab Complete 11/01/2022 21:49:49 11/01/2022 23:34:11 Urine Collect Complete 11/01/2022 21:49:49 11/01/2022 23:34:11 X-Ray Complete 11/01/2022 21:49:49 11/01/2022 23:08:32 11/01/2022 23:11:25 Pending Labs Cancel 11/01/2022 21:50:07 11/01/2022 22:07:14 Pending Labs Complete 11/01/2022 22:05:04 11/01/2022 22:05:04 11/01/2022 22:27:56 Lab Complete 11/01/2022 22:05:04 11/01/2022 22:05:04 11/01/2022 22:27:56 Pending Labs Complete 11/01/2022 22:07:38 11/01/2022 22:07:38 11/01/2022 22:33:15 Pending Labs Complete 11/01/2022 22:09:18 11/01/2022 22:09:18 11/01/2022 22:09:25 Lab Complete 11/01/2022 22:09:18 11/01/2022 22:09:18 11/01/2022 22:09:25 Wet Read Request 11/01/2022 23:11:25 Consult Request 11/02/2022 00:07:18 Hospitalist Consult Request 11/02/2022 00:07:19 Patient Care Request 11/02/2022 00:12:31 Patient Care Request 11/02/2022 00:12:31 Patient Care Request 11/02/2022 00:12:31 Patient Care Request 11/02/2022 00:12:31 Bed Request Request 11/02/2022 00:45:40 Reg Bed Request Request 11/02/2022 00:45:40 Admit Request 11/02/2022 00:45:40 Meds Admin Request 11/02/2022 01:17:24 Patient Care Request 11/02/2022 01:22:16 Meds Admin Request 11/02/2022 01:22:16 RT Request 11/02/2022 01:22:16 Pending Labs Request 11/02/2022 01:34:20 Lab Request 11/02/2022 01:34:20 Inpatient Bed Ready Complete 11/02/2022 03:12:35 11/02/2022 03:12:35 11/02/2022 03:12:35 ADDRESS: [address] [place] [address] DR ELIZONDO [place] [id number] PHYS DOC NOTES: MEDICAL INFORMATION: Prescriptions Given: Medications to Continue with No Changes Other Medications anastrozole (anastrozole 1 mg Tab) 1 Tablets By Mouth every day. Refills: 11. anastrozole (Arimidex 1 mg Tab) 1 Tablets By Mouth every day. Refills: 3. cyanocobalamin (Vitamin B12 1000 mcg Tab) 1 Tablets By Mouth every day. Refills: 11. furosemide (furosemide 40 mg Tab) 1 Tablets By Mouth every day. lisinopril (lisinopril 10 mg Tab) 1 Tablets By Mouth every day. omega-3 polyunsaturated fatty acids (Fish Oil 1000 mg oral capsule) 1 Capsules By Mouth every day. ondansetron (ondansetron 8 mg Tab) 8 Milligram By Mouth every 8 hours as needed Nausea. Refills: 3. ribociclib (Kisqali (200 mg daily dose) oral tablet) 2 tab(s) take for 21 days, withhold for 7 days, then repeat cycle. 11 REFILLS. Refills: 1. ribociclib (Kisqali (200 mg daily dose) oral tablet) 1 tab(s) Oral take for 21 days, withhold for 7 days, then repeat cycle. Refills: 1. ribociclib (Kisqali (200 mg daily dose)) 200 Milligram 3 times a day. ribociclib (Kisqali (400 mg daily dose) oral tablet) 1 tab by mouth for 21 days, withhold for 7 days then repeat cycle.. Refills: 1. ribociclib (ribociclib 200 mg oral tablet) take 1 tab(s) po days 1-21 take for 21 days, withhold for 7 days, then repeat cycle. Refills: 11. simvastatin (simvastatin 40 mg Tab) 1 Tablets By Mouth once a day (at bedtime). PATIENT EDUCATION INFORMATION: Instructions: Follow up: DIAGNOSIS: 1:Generalized weakness; 2:HTN (hypertension); 3:Hypercholesteremia; 4:History of breast cancer; 5:On deep vein thrombosis (DVT) prophylaxis; Multiple falls [facility] ED Note-Physicianon 11-03-19 ED Note-Physician Radiologist has read the x-ray of the sacrum and there is discrepancy. He is reading he has a left pubic rami fracture. The patient has been admitted to the hospital.The hospitalist notified. Normal [facility] Comment on above: Result Comment: Elec tronically Signed By: Alok Cai M.D..johnnie\Date and Time Signed: 11/02/22 07:41 EDT ED Note-Physician Basic Information Time Seen: Kelly Meredith DO 11/01/2022 20:01 Chief Complaint pt to ED via [facility] with c/o chest bruise from fall earlier today. c/o increasing weakness. denies thinners or hitting head with earlier fall. denies PMH. hx of DM. pt A&Ox4 upon ED arrival, applied to manager cardiac. History of Present Illness Patient is a 72-year-old female with past medical history of hypertension, hyperlipidemia, diabetes presenting to the ED for evaluation of multiple falls and increasing weakness. Patient states this morning she was walking had put her close on the walker when she got tangled up and fell landing on her chest. Patient states she called EMS for lift assist and was evaluated and declined transport at that time. Patient states this afternoon she was unable to get off her couch called her neighbor for assistance who recommended that she be evaluated as they do not believe she is safe at home. Patient denies any complaints. Review of Systems A 10 point review of systems is negative except as noted above. Medical and Surgical History: Reviewed and noted Social history: Lives at home Tobacco: Denies Physical Exam Vitals & Measurements T: 35.9 ?C(Tympanic) HR: 74(Peripheral) RR: 16 BP: 159/67 SpO2: 92% HT: 167 cm WT: 90.3 kg BMI: 32.38 General: Well developed, non toxic appearing, no acute distress HEENT: Head atraumatic, Mucosa moist, hearing grossly normal Neck: No JVD, tracheal deviation Cardiac: Regular rate, rhythm, no murmurs, or gallops, 2+ radial pulses Respiratory: Lungs clear to auscultation B/L, normal respiratory effort, contusion noted to the upper left chest wall Abdomen: Soft non tender, no rebound or guarding, no peritoneal signs, Extremities: No edema noted in the LE B/L, no tenderness to palpation Neurologic: Alert and oriented, speech clear Skin: No rashes or lesions Psych: Appropriate mood and behavior Medical Decision Making MEDICAL DECISION MAKING Number and Complexity of Problems Differential Diagnosis: [] [facility] Data External documents reviewed: [] My EKG interpretation: [] My CT interpretation: [] My X-ray interpretation: [] My Ultrasound interpretation: [] Decision rules/scores evaluated: [] Discussed with: [] Treatment and Disposition ED Course: Patient is a 72-year-old female presenting to the ED for evaluation of multiple falls. Patient is nontoxic-appearing on arrival, no acute distress. No focal deficits noted on examination. She does have bruising to the chest wall. Patient is concerned that I am going to run her bill up by ordering imaging and labs. Explained to the patient due to her multiple fall would be beneficial to obtain laboratory evaluation to make sure there is no underlying medical process. Patient refuses these. Chest x-ray is obtained to evaluate for underlying rib fractures however after this was ordered patient refused a chest x-ray. Patient's granddaughter did present to the bedside did talk with the patient and patient is now agreeable to obtaining laboratory evaluation and imaging. They are requesting imaging of her coccyx he has a fall and has been having increasing pain. Laboratory evaluation is unremarkable, x-rays do not reveal any acute fracture or pathology. We did attempt to ambulate the patient in the ED patient was unable to get out of bed even with max assist. I discussed with the patient that she was unable to even get out of bed without significant assistance patient initially denying admission however patient and granddaughter did talk she is agreeable to admission for PT OT eval. I discussed the case with the hospitalist who does accept the patient for admission. Shared decision making: [] Code status: [] Assessment/Plan Generalized weakness (R53.1: Weakness) Multiple falls (R29.6: Repeated falls) Orders: Automated Diff Basic Metabolic Panel CBC w/ Auto Diff ECG 12 Lead Adult ED Physician consult Hospitalist for continued care eGFR Hepatic Function Panel Troponin 0 Hr. UA With Cult Reflex XR Chest Single View XR Sacrum and Coccyx Min 2 Views Disposition Plan Patient Discharge Condition Fair Discharge Disposition Admitted Discharge Prescription List Prescriptions No active prescription medications Follow-up No qualifying data available Problem List/Past Medical History Ongoing Axillary adenopathy BMI 36.0-36.9,adult Breast mass, right Chronic edema Diabetes HTN (hypertension) Hypercholesteremia Invasive ductal carcinoma of right breast Historical No qualifying data Procedure/Surgical History Core needle biopsy of breast (07/04/2021), Tonsillectomy and adenoidectomy. Medications Inpatient No active inpatient medications Home anastrozole 1 mg Tab, 1 mg= 1 tab(s), Oral, Daily, 11 refills Arimidex 1 mg Tab, 1 mg= 1 tab(s), Oral, Daily, 3 refills Fish Oil 1000 mg oral capsule, 1000 mg= 1 cap(s), Oral, Daily furosemide 40 mg Ta (more content not included)... Normal [facility] Comment on above: Result Comment: Elec tronically Signed By: Kelly Meredith DO\.br\Date and Time Signed: 11/02/22 00:27 EDT ED Patient Education Noteon 11-02-2022 ED Patient Education Note Normal [facility] ED Patient Summaryon 023 ED Patient Summary (Inserted Image. Belle ble to display) [place] [id number] Patient Discharge Instructions Person Information Name: MARLEN STALEY Age: 72 Years Arrival Date: 11/01/2022 19:53:41 Discharge Diagnosis: 1:Generalized weakness; 2:HTN (hypertension); 3:Hypercholesteremia; 4:History of breast cancer; 5:On deep vein thrombosis (DVT) prophylaxis; Multiple falls Primary Care Physician: Azar HANKS, Rickey Lynn Provider Information Primary Provider: Kelly Meredith DO Advanced Lineman A Class:None The exam and treatment you received in the Emergency Department were for an urgent problem and are not intended as complete care. It is important that you follow up with a doctor, nurse practitioner, or physician?s assistant womens volleyball coach for ongoing care. If your symptoms become worse or you do not improve as expected and you are unable to reach your usual health care provider, you should return to the Emergency Department. We are available 24 hours a day. MARLEN STALEY has been given the following list of patient education materials, prescriptions and follow-up instructions: Follow-up Instructions: In the event that this physician does not participate in your insurance network, please consult with your insurance company to find a nearby participating provider. Patient Education Materials: A MESSAGE TO ALL PATIENTS REGARDING OPIOIDS PRESCRIPTION OPIOIDS: WHAT YOU NEED TO KNOW Prescription opioids can be used to help relieve qqfkvyck-fl-rnrbag pain and are often prescribed following a surgery or injury, or for certain health conditions. These medications can be an important part of the treatment but also come with serious risks. It is important to work with your healthcare provider to make sure you are getting the safest, most effective care. WHAT ARE THE RISKS AND SIDE EFFECTS OF OPIOID USE? Prescription opioids carry serious risks of addiction and overdose, especially with prolonged use. An opioid overdose, often marked by slowed breathing, can cause sudden . The use of prescription opioids can have a number of side effects as well, even when taken as directed: ? Tolerance?meaning you might need to take more of the medication for the same pain relief ? Physical dependence?meaning you have symptoms of withdrawal when a medication is stopped ? Increased sensitivity to pain ? Constipation ? Nausea, vomiting, and dry mouth ? Sleepiness and dizziness ? Confusion ? Depression ? Low levels of testosterone that can result in lower sex drive, energy, and strength ? Itching and sweating RISKS ARE GREATER WITH: ? History of drug misuse, substance use disorder, or overdose ? Mental health conditions (such as depression or anxiety) ? Sleep apnea ? Older age (65 years and older) ? Avoid alcohol while taking prescription opioids. Also, unless specifically advised by your health care provider, medications to avoid include: ? Benzodiazepines (such as Xanax or Valium) ? Muscle relaxants (such as Soma or Flexeril) ? Hypnotics (such as Ambien or Lunesta) ? Other prescription opioids KNOW YOUR OPTIONS Talk to your health care provider about ways to manage your pain that don?t involve prescription opioids. Some of these options may actually work better and have fewer risks and side effects. Options may include: ? Pain relievers such as acetaminophen, ibuprofen, and naproxen ? Some medication that are also used for depression or seizures ? Physical therapy and exercise ? Cognitive behavioral therapy, a psychological, goal-directed approach, in which patients learn how to modify physical, behavioral, and emotional triggers of pain and stress. IF YOU ARE PRESCRIBED OPIOIDS FOR PAIN: ? Never take opioids in greater amounts or more often than prescribed. ? Follow up with your primary health care provider. o Work together to create a plan on how to manage your pain. o Talk about ways to help manage your pain that don?t involve prescription opioids. o Talk about any and all concerns and side effects. ? Help prevent misuse and abuse o Never sell or share prescription opioids. o Never use another person?s prescription opioids. ? Store prescription opioids in a secure place and out of reach of others (this may include visitors, children, friends, and family). ? Safely dispose of unused prescription opioids: Find your community drug take-back program or your pharmacy mail-back program, or flush them down the toilet, following guidance from the Food and Drug Administration (www.fda.gov/Drugs/Resour cesForYou). ? Visit www.cdc.gov/drugoverdose to learn about the risks of opioids abuse and overdose. ? If you believe you may be struggling with addiction, tell your health healthcare representative and ask for guidance or call [facility]S National Helpline at 1-785-791-WIUJ. a Source: Department of Health and Human Servi (more content not included)... Normal [facility] ED Traumaon 11-02-2022 ED Trauma [id number] Normal [facility] FolateOrdered By: SYSTEM SYS TEM on 11-02-2022 Folate [Mass/Vol] 11.4 ng/mL Normal >=6.7 [facility] Comment on above: Performed By: #### 1 [id number], 5364892, 7715157, 6152195, 3613124, 56636329, 2665139, [id number] #### [facility] [address] [place] [address] Hep Func Panelon 11-02-2022 Albumin [Mass/Vol] 3.5 g/dL Normal 3.3-5.0 [facility] Comment on above: Performed By: #### 1 [id number], 1985224, 0786393, 5303727, 8873829, 24854581, 6887465, [id number] #### [facility] [address] [place] [address] Albumin/Globulin (S) [Mass conc ratio] 1.0 Low 1.1-2.2 [facility] Comment on above: Performed By: #### 1 9086320, 5541338, 6419647, 2625023, 9958498, 03679705, 9778039, 21298633 #### [facility] [address] [place] [address] ALP [Catalytic activity/Vol] 110 Int._Unit/L High 21-98 [facility] Comment on above: Performed By: #### 1 [id number], 9338093, 1621977, 6476970, 3574382, 55859600, 2084028, 84502422 #### [facility] [address] [place] [address] ALT No additional P-5'-P [Catalytic activity/Vol] 13 Int._Unit/L Normal 6-46 [facility] Comment on above: Performed By: #### 1 2791759, 5224763, 4075343, 6134731, 0831720, 17139515, 7907213, 14529724 #### [facility] [address] [id number] AST [Catalytic activity/Vol] 20 Int._Unit/L Normal 5-43 [facility] Comment on above: Performed By: #### 1 4413971, 9879866, 0261755, 8982146, 4204994, 73463262, 8553958, 44341543 #### [facility] [address] [place] [address] Bilirubin [Mass/Vol] 0.9 mg/dL Normal 0.0-1.1 [facility] Comment on above: Performed By: #### 1 6472660, 8978711, 4019348, 4702375, 3479583, 94552816, 7207136, 27430404 #### [facility] [address] [place] [address] Bilirubin.direct [Mass/Vol] 0.2 mg/dL Normal 0.1-0.4 [facility] Comment on above: Performed By: #### 1 4760711, 7438782, 1458347, 6666267, 0612431, 41444957, 7841847, 56909538 #### [facility] [address] [place] [address] Bilirubin.indirect [Mass or moles/Vol] 0.7 mg/dL Normal 0.1-0.9 [facility] Comment on above: Performed By: #### 1 5162911, 6302168, 3884650, 0857231, 1518858, 78113676, 9340795, 79827937 #### [facility] [address] [place] [address] Globulin (S) [Mass/Vol] 3.4 g/dL Normal 1.4-4.0 [facility] Comment on above: Performed By: #### 1 4864686, 6936743, 6823631, 1366627, 9021841, 46016978, 8309317, 61236405 #### [facility] [address] [place] [address] Protein [Mass/Vol] 6.9 g/dL Normal 6.0-7.8 [facility] Comment on above: Performed By: #### 1 1429057, 0281077, 8698968, 5397572, 6015262, 70598202, 3269189, 09964237 #### [facility] [address] [place] [address] Insurance Correspondence Off iceon 11-02-2022 Insurance Correspondence Office [id number]:12 7 Normal [facility] 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 Note - Attila e Manageron 11-02-2022 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 Note - Filling Hauler CRM to room to discuss DC planning. Patient is tearful in room because she cant see her spouse and he cant come to see her here. She would like to see him. Patient is here for weakness, Chest pain. Patient has sacral Fx. Patient will be seen by Ortho and gen Sx. Patient is normally from home with her spouse. PT and OT rec SNF. Patient would like referral to TCU as her spouse is there. Patient is here for observation, will see if she meets inpatient. Patient given copy of [place] form. PCP, DME and insurance verified. DC date TBD. CRM provided contact info, white board updated. Anticipated DC once SNF arranged Patient is devoted so she will need precert she does not meet for inpatient Per TCU know beds on TCU side, cant share room with spouse she can have a bed on [facility] side. CRM will update patient and TCU Patient is okay with [facility] side, she knows that she can visit him and have meals [facility] Comment on above: Result Comment: Elec tronically Signed By: Florence Ortega\.br\Date and Time Signed: 11/02/22 14:23 EDT 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 Note - Rafat n 11-02-2022 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 Note - OT OT AM-PAC 6 Click Score: = SNF. Pt completed sit to stand transfer with Mod A x2 using FWW. Pt fearful about falling again and was emotional during time of evaluation. OT to follow daily, progressing as tolerates. Barriers include pain, weakness, and emotional state. SNF recommended for DC to maximize Pt's safety and independence with all self care tasks and functional transfers. OT evaluation completed by Bob Guevara/FLORENCIO under direct supervision from SIVAKUMAR Estrada, OTR/L. [facility] 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 Note - Soc ial Workeron 11-02-2022 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 Note - [employer] Counselor This SW responded to a consult on regarding Advanced Directives. Patient was actively leaving her room for testing when SW arrives. SW will attempt to meet with patient when she arrives back from testing. This SW spoke to patient regarding Advanced Directives. Patient stated that she believes to have this documentation already completed, but could not tell me if her or daughter is listed as her primary agent. Patient stated that she has a phone call out to her director reactor projects to obtain a copy of this documentation if she has it completed, so requested that a new AD is not completed at this time. Patient was adamant that SW not complete a new AD with her daughter as she believes that her daughter is pulling a fast one on her. SW explained that AD can not complete this documentation without patient present. SW provided the patient with a copy of the AD and contact information. Patient then asked that SW request her CRM to come to meet with her as she does not know if she wants to go to SNF anymore. SW will remain available as needed. [facility] Monitor Recordon 11-02-2022 Monitor Record [id number]:1 [id number] [facility] Progress Note-Physicianon Progress Note-Physician Patient: MARLEN STALEY Age: 72 years Sex: Female : 1950 Associated Diagnoses: None Author: Gavino Lugo DO Basic Information Pt seen and examined. Full consult Dictated Left acute superior/inferior pubic ramus fx's Old rt rami and sacral wing fx's Lt hand and chest contusion Hx breast CA HTN Deconditioning with poor mobility NO surgery. DVTp per admitting service. WBAT w fall precautions. PT with SS for home health vs rehab pending progress. F/U in 4 weeks for repeat xray and exam. Health Status Allergies: Allergic Reactions (All) Severity Not Documented Bee Stings- Sob - shortness of breath. Penicillins- Sob - shortness of breath. Sulfa drugs- Sob - shortness of breath. Normal [facility] Comment on above: Result Comment: Elec tronically Signed By: Gavino Lugo DO\.br\Date and Time Signed: 11/02/22 15:25 EDT Progress Note-Physician Basic Informatio n This is a 72-year-old female with a medical history significant for metastatic breast cancer who comes in with pubic rami fracture and physical deconditioning. Assessment/Plan Physical deconditioning Pubic rami fracture -Spoke with orthopedic surgeon appreciate assistance likely nonoperative weightbearing as tolerated we will wait for orthopedic surgeon to examine patient. -AP pelvis was ordered -Checking vitamin D -[place] Metastatic breast cancer ? Continue with chemotherapeutics ? We will bring in her home medications which we verified by pharmacy that okay to use - CT pelvis r/o mets HLD: Continue with simvastatin Hypertension: Continue with lisinopril, add Norvasc Time: 35 minutes Medications Reviewed: Plan: Plan was discussed with patient and family (if applicable) at bedside Subjective Patient was seen and examined. Sitting in bed comfortably. States that she was on her walker and then sat down too hard when she can get up again. Review of Systems Denies any headaches change in vision chest pain chest tightness abdominal pain abdominal discomfort lower limb swelling Objective Vitals & Measurements T: 36.3 ?C(Oral) TMIN: 35.9 ?C(Tympanic) TMAX: 37.1 ?C(Oral) HR: 85(Monitored) RR: 18 BP: 161/109 SpO2: 91% HT: 167.64 cm WT: 88 kg Intake & Output This visit (24 hour periods starting at 07:00 EDT) 11/02/22 * 11/01/22 10/31/22 Total Summary Intake mL -- 0.5 -- Output mL -- 50 -- Fluid Balance -- -49.5 -- Intake (1) ketorolac mL -- 0.5 -- Total -- 0.5 -- Output (1) Urine Output Initial mL -- 50 -- Total -- 50 -- Counts (0) * This column has not completed the indicated time period. Physical Exam General: alert, no acute distress Psychiatric: cooperative, affect appropriate for age Neurological: awake, alert, oriented, speech normal Cardiovascular: regular rate and rhythm, normal no overt murmurs Respiratory: respirations non labored no adventitious breath sounds Gastrointestinal: soft NT, NG, NR Extremities: no edema, no wound Lab Results WBC: 6.6 E9/L (11/01/22 22:01:00) RBC: 3.7 E12/L Low (11/01/22::00) HGB: 12.1 gm/dL (11/01/22:01:00) Hct: 36.5 % (11/01/22:01:00) MCV: 99.3 fL (11/01/22::00) MCH: 32.9 pg (11/01/22::00) MCHC: 33.1 gm/dL (11/01/22:01:00) RDW: 16.3 % High (11/01/22::00) Platelet: 229 E9/L (11/01/22::00) MPV: 7.3 fL (11/01/22:01:00) Neutro Auto: 65.9 % (11/01/22 22:01:00) Lymph Auto: 24.6 % (11/01/22:01:00) Summers Auto: 5 % (11/01/22::00) Eos Auto: 3.3 % (11/01/22::00) Basophil Auto: 1.2 % (11/01/22:01:00) Neutro Absolute: 4.4 E9/L (11/01/22:01:00) Lymph Absolute: 1.6 E9/L (11/01/22 22:01:00) Summers Absolute: 0.3 E9/L (11/01/22 22::00) Eos Absolute: 0.2 E9/L (11/01/22::00) Basophil Absolute: 0.1 E9/L (11/01/22 22::00) Glucose Lvl: 130 mg/dL (11/01/22 22:01:00) BUN: 26 mg/dL High (11/01/22::00) Creatinine: 1.3 mg/dL (11/01/22::00) eGFR: 43 mL/min/1.73 m2 Low (11/01/22::00) BUN/Creat Ratio: 20 (11/01/22::00) Sodium Lvl: 138 mmol/L (11/01/22::00) Potassium Lvl: 4.2 mmol/L (11/01/22::00) Chloride: 105 mmol/L (11/01/22::00) CO2: 22 mmol/L (11/01/22::00) AGAP: 15 mEq/L (11/01/22 22::00) Calcium Lvl: 9.1 mg/dL (11/01/22::00) Alk Phos: 110 Int._Unit/L High (11/01/22 22::00) ALT: 13 Int._Unit/L (11/01/22::00) AST: 20 Int._Unit/L (11/01/22 22::00) Total Protein: 6.9 gm/dL (11/01/22 22:01:00) Albumin Lvl: 3.5 gm/dL (11/01/22 22:01:00) Globulin: 3.4 gm/dL (11/01/22 22::00) A/G Ratio: 1 Low (11/01/22 22:01:00) Bili Total: 0.9 mg/dL (11/01/22 22:01:00) Bili Direct: 0.2 mg/dL (11/01/22 22:01:00) Bili Indirect: 0.7 mg/dL (11/01/22 22:01:00) TSH: 0.93 mcIU/mL (11/02/22 06:00:00) Troponin: 7.5 pg/mL Low (11/01/22 22:01:00) Vitamin B12 Lvl: 470 pg/mL (11/02/22 06:00:00) Folate Lvl: 11.4 ng/mL (11/02/22 06:00:00) UA Spec Desc: Clean Catch (11/01/22 23:20:00) UA Color: Yellow2 (11/01/22 23:20:00) UA Clarity: SL CLOUDY (11/01/22 23:20:00) UA Spec Grav: 1.025 (11/01/22 23:20:00) UA pH: 6.0 (11/01/22 23:20:00) UA Protein: 1+ Abnormal (11/01/22 23:20:00) UA Glucose: NEGATIVE1 (11/01/22 23:20:00) UA Ketones: Trace2 (11/01/22 23:20:00) UA Bili: NEGATIVE1 (11/01/22 23:20:00) UA Blood: 3+ Abnormal (11/01/22 23:20:00) UA Nitrite: NEGATIVE1 (11/01/22 23:20:00) UA Urobilinogen: 2.0 Abnormal (11/01/22 23:20:00) UA Leuk Est: NEGATIVE1 (11/01/22 23:20:00) UA RBC: 21-30 Abnormal (11/01/22 23:20:00) UA Squam Epithelial: 0-2 (11/01/22 23:20:00) UA WBC: 0-5 (11/01/22 23:20:00) UA Mucous: 1+ (11/01/22 23:20:00) Problem List/Past Medical History Ongoing Axillary adenopathy BMI 36.0-36.9,adult Breast mass, right Chronic edema Diabetes History of breast cancer HTN (hypertension) Hypercholesteremia Invasive du (more content not included)... Normal [facility] Comment on above: Result Comment: Elec tronically Signed By: Trevor HANKS, Wyatt\.br\Date and Time Signed: 11/02/22 12:22 EDT Reference Laboratory Testing Ordered By: Generated DomainUser on 11-02-2022 Reagin Ab RPR Ql (S) Non-Reactive Invalid Interpretation Code Non Reactive [facility] [employer] Comment on above: Result Comment: Perf ormed at: [facility] [id number] [place], [place] [id number] PhD [place] Avelar TSH With T4fr ReflexOrdered By: SYSTEM SYSTEM on 11-02-2022 TSH Qn 0.93 m[IU]/L Normal 0.34-5.60 [facility] Comment on above: Performed By: #### 1 6886025, 6482260, 3610517, 9383854, 6871692, 04871158, 1688649, 23265364 #### [facility] [address] [place] [address] Troponin 0 Hr.on 11-02-2022 Troponin I.cardiac [Mass/Vol] 7.50 pg/mL Low 10.10-27.1 0 [facility] Comment on above: Result Comment: The 95% CI (Confidence Interval) PPV (Positive Predictive Value) for myocardial infarction in females is 38 pg/mL, in males 51 pg/mL. The results should be used in conjunction with clinical conditions of myocardial infarction. (Access High Sensitivity Troponin I Instructions For Use, [employer], November 2017) Performed By: #### 1 1098958, 1619724, 2115581, 9569347, 3757440, 20245946, 9102875, 79578459 #### [facility] [address] [place] [address] UA With Cult Reflexon 2022 Bacteria LM Ql (Urine sed) TRACE Normal Trace [facility] Comment on above: Order Comment: Order Added by Discern Expert. Performed By: #### 1 0512691, 5256470, 6101594, 3387780, 4201133, 03388784, 2476391, 03733903 #### [facility] [address] [place] [address] Bilirubin Ql (U) Negative Normal Negative [facility] Comment on above: Order Comment: Order Added by Discern Expert. Performed By: #### 1 4921378, 5591675, 6794531, 0017204, 8750080, 48989474, 6921181, 32703232 #### [facility] [address] [place] [address] Clarity (U) CLEAR Normal Clear [facility] Comment on above: Order Comment: Order Added by Discern Expert. Performed By: #### 1 6040810, 1263338, 8241064, 8119421, 0778472, 08314477, 2448758, 56195450 #### [facility] [address] [place] [address] Color (U) YELLOW Normal Yellow [facility] Comment on above: Order Comment: Order Added by Discern Expert. Performed By: #### 1 9070271, 6213232, 3846733, 9147656, 5751623, 30608233, 1152344, 70602109 #### [facility] [address] [place] [address] Epithelial cells.squamous LM.HPF (Urine sed) [#/Area] 3-4 Normal 0-2 [facility] Comment on above: Order Comment: Order Added by Discern Expert. Performed By: #### 1 1554879, 0946048, 1216814, 5649563, 8439160, 26613023, 0370141, 54481980 #### [facility] [address] [place] [address] Glucose Test strip (U) [Mass/Vol] Negative Normal Negative [facility] Comment on above: Order Comment: Order Added by Discern Expert. Performed By: #### 1 1980523, 5542645, 5132713, 5251968, 6727387, 86208719, 8575314, 80911994 #### [facility] [address] [place] [address] Hemoglobin Ql (U) TRACE Abnormal Negative [facility] Comment on above: Order Comment: Order Added by Discern Expert. Performed By: #### 1 5392242, 6645737, 3181666, 5554619, 4580538, 44796971, 2645189, 39604946 #### [facility] [address] [place] [address] Ketones (U) [Mass/Vol] TRACE Abnormal Negative [facility] Comment on above: Order Comment: Order Added by Discern Expert. Performed By: #### 1 6501568, 0050948, 0048242, 1872309, 9171224, 75310891, 0068709, 11622183 #### [facility] [address] [place] [address] [place].plasma/[place]. RBC (Bld) [Mass ratio] 4-20 Normal 0-3 [facility] Comment on above: Order Comment: Order Added by Discern Expert. Performed By: #### 1 6231706, 6319048, 3578018, 3420289, 6687055, 74059978, 4114393, 77204643 #### [facility] [address] [place] [address] Nitrite Ql (U) Negative Normal Negative [facility] Comment on above: Order Comment: Order Added by Discern Expert. Performed By: #### 1 5986030, 5462987, 5742218, 4250134, 4271055, 84319217, 3719382, 92075801 #### [facility] [address] [place] [address] pH (U) 6.0 [pH] Invalid Interpretation Code 5.0-9.0 [facility] Comment on above: Order Comment: Order Added by Discern Expert. Performed By: #### 1 4052219, 0879383, 7863213, 0555179, 1461321, 03237212, 7896628, 16055403 #### [facility] [address] [place] [address] Protein (U) [Mass/Vol] TRACE Abnormal Negative [facility] Comment on above: Order Comment: Order Added by Discern Expert. Performed By: #### 1 5038604, 0356244, 1842194, 0219238, 3575026, 80728512, 9144535, 05095040 #### [facility] [address] [place] [address] Specific gravity (U) [Rel density] 1.025 Invalid Interpretation Code 1.005-1.03 0 [facility] Comment on above: Order Comment: Order Added by Discern Expert. Performed By: #### 1 1157135, 3742870, 4023118, 6919926, 8684434, 23028511, 2591444, 14668751 #### [facility] [address] [place] [address] Type of Urine collection method Catheter Normal [facility] Comment on above: Order Comment: Order Added by Discern Expert. Performed By: #### 1 0655663, 7545168, 5428529, 9785147, 5141226, 01626807, 0308140, 53906332 #### [facility] [address] [place] [address] Urobilinogen Qn (U) 1.0 {Tj'U}/dL Normal 0.0-1.0 [facility] Comment on above: Order Comment: Order Added by Discern Expert. Performed By: #### 1 0545185, 2840719, 3487803, 6219239, 8732887, 47310947, 4711039, 23065750 #### [facility] [address] [place] [address] WBC Auto Ql (U) Negative Normal Negative [facility] Comment on above: Order Comment: Order Added by Discern Expert. Performed By: #### 1 1052307, 0023365, 3493543, 0871824, 2592684, 11991886, 5428583, 25778372 #### [facility] [address] [place] [address] WBC LM.HPF (Urine sed) [#/Area] 0-5 Normal 0-5 [facility] Comment on above: Order Comment: Order Added by Discern Expert. Performed By: #### 1 0631771, 4012445, 8129370, 3632549, 2173304, 10103101, 2045127, 40000399 #### [facility] [address] [place] [address] Bilirubin Ql (U) Negative Normal Negative [facility] Comment on above: Performed By: #### 1 8287239, 4995427, 7962350, 3830540, 3308674, 14522265, 8618068, 56774140 #### [facility] [address] [place] [address] Clarity (U) SL CLOUDY Invalid Interpretation Code [facility] Comment on above: Performed By: #### 1 3358169, 6256010, 7491839, 2406617, 0520626, 22999677, 8123746, 92605961 #### [facility] [address] [place] [address] Color (U) YELLOW Normal Yellow [facility] Comment on above: Performed By: #### 1 4240960, 6753537, 7692446, 6872111, 5375504, 42355754, 1432648, 63648997 #### [facility] [address] [place] [address] Epithelial cells.squamous LM.HPF (Urine sed) [#/Area] 0-2 Normal 0-2 [facility] Comment on above: Performed By: #### 1 8937908, 3567413, 8640999, 5433833, 9132879, 17160833, 7518998, 16100829 #### [facility] [address] [place] [address] Glucose Test strip (U) [Mass/Vol] Negative Normal Negative [facility] Comment on above: Performed By: #### 1 4630219, 2576877, 7430796, 9334766, 1297418, 47396632, 0931738, 67512004 #### [facility] [address] [place] [address] Hemoglobin Ql (U) 3+ Abnormal Negative [facility] Comment on above: Performed By: #### 1 3826742, 5740686, 7341262, 8824197, 7833622, 90722611, 1063097, 00368714 #### [facility] [address] [place] [address] Ketones (U) [Mass/Vol] TRACE Invalid Interpretation Code Negative [facility] Comment on above: Performed By: #### 1 3834546, 0538732, 2161159, 9662865, 9737807, 78042494, 9717971, 29275979 #### [facility] [address] [place] [address] [place].plasma/[place]apine[place]. RBC (Bld) [Mass ratio] 21-30 Abnormal 0-3 [facility] Comment on above: Performed By: #### 1 1143978, 5621704, 1815436, 5246742, 6057983, 26069589, 3473317, 70944018 #### [facility] [address] [place] [address] Mucus Ql (Urine sed) 1+ Normal [facility] Comment on above: Performed By: #### 1 9891909, 5193043, 9064817, 8016771, 3735690, 78521772, 7328473, 50343914 #### [facility] [address] [place] [address] Nitrite Ql (U) Negative Normal Negative [facility] Comment on above: Performed By: #### 1 5330963, 5941055, 4549913, 5696527, 5220272, 88752514, 7914607, 96270628 #### [facility] [address] [place] [address] pH (U) 6.0 [pH] Invalid Interpretation Code 5.0-9.0 [facility] Comment on above: Performed By: #### 1 8137371, 1545835, 2215447, 1853905, 0242896, 82226570, 3161203, 95444167 #### [facility] [address] [place] [address] Protein (U) [Mass/Vol] 1+ Abnormal Negative [facility] Comment on above: Performed By: #### 1 5300662, 5340360, 5942596, 4295062, 0208725, 77285724, 2403965, 99717487 #### [facility] [address] [place], [place] [address] Specific gravity (U) [Rel density] 1.025 Invalid Interpretation Code 1.005-1.03 0 [facility] Comment on above: Performed By: #### 1 1237331, 0679437, 6881474, 5608265, 9294278, 09787420, 3904302, 56325875 #### [facility] [address] [place] [address] Type of Urine collection method Clean Catch Normal [facility] Comment on above: Performed By: #### 1 0959215, 0034002, 6662495, 0128322, 8385797, 15819648, 5437923, 15912440 #### [facility] [address] [place], [place] [address] Urobilinogen Qn (U) 2.0 {Tj'U}/dL Abnormal 0.0-1.0 [facility] Comment on above: Performed By: #### 1 7481106, 1615977, 4413046, 7765007, 6872950, 79949765, 5359185, 32559166 #### [facility] [address] [place] [address] WBC Auto Ql (U) Negative Normal Negative [facility] Comment on above: Performed By: #### 1 8988057, 8007116, 6316482, 5403918, 3824019, 78820628, 6415953, 35072161 #### [facility] [address] [place] [address] WBC LM.HPF (Urine sed) [#/Area] 0-5 Normal 0-5 [facility] Comment on above: Performed By: #### 1 0954822, 8664800, 0060795, 6804619, 0317073, 69990439, 9744847, 33800710 #### [facility] [address] [place], [place] [address]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 different assay methods or kits cannot be used interchangeably. Results cannot be interpreted as absolute evidence of the presence or absence of malignant disease. Performed at: [facility] [id number] PhD [place] [facility] CHEMISTRYOrdered By: SYSTEM SYSTEM [...] 40 mL/min/1.73 m2 Low >=59mL/min /1.73 m2 [facility] Chem S Globulin (S) [Mass/Vol] 3.2 g/dL [...] 34 mL/min/1.73 m2 Low >=59mL/min /1.73 m2 [facility] Chem S Globulin (S) [Mass/Vol] 3.2 g/dL [...] Normal 4.0 - 11.0 E9/L [facility] Clinic Note - Heme Onc Sched [...] Documentation: Clinic Location/Phone Number: Clinic Location/Phone Number: [facility] End Of Visit MU Report Item: Visit Summary given or mailed to patientyes Mailed to patient Electronic Signatures: Isa Wong (SEC) (Signed 28-Aug-2021 16:01) Authored: Retrieve Patient Instructions, End of Visit Documentation Last Updated: 28-Aug-2021 16:01 by Isa Wong (SEC) Normal [facility] Clinic Note - Heme Onc-New Evaristo king 08-28-2021 Clinic Note - Heme Onc-New Visit Patient Visit Information: Visit Type: New Visit Cancer History: Breast AJCC Edition: 8th (AJCC), Diagnosis Date: August 2021, Stage(no match), pM1 G2 History of Present Illness: ID Statement: null is a () day old null Interval History: BREAST CANCER DIAGNOSIS metastatic ER+/MO+/HER2- breast cancer ([id number]) CONSULTING ONCOLOGIST Dr David Caldera CURRENT THERAPY anastrozole/ribociclib x 3 weeks HPI Patient is a pleasant 71 y/o woman here for a 2nd opinion. She presented on 06/29/21 with a 4.2cm mass in the right breast which she had for >1 year. Biopsy revealed ER/MO >95%/HER2- breast cancer. Also has known h/p [...] corresponding to (more content not included)... 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 offered to patient: Patient [...] you are livingno Depression: Past 2 wks: [place] down, depressed or hopelessno Past 2 wks: [place] little interest/pleasure doing thingsno Any Thoughts of [...] 13:21) Authored: Patient Visit Information, Vital Signs, Geology Teacher, Allergies, Outpatient Medication Profile, Notification, Travel History, Falls, Spiritual/Procedural, Adv Dir, Violence, Depression, Substance, Nutrition/Learning Lisette Valle) (Signed 28-Aug-2021 15:47) Authored: Vital Signs, Notification Co-Signer: Patient Visit Information, Vital Signs, Geology Teacher, Allergies, Outpatient Medication Profile, Notification, Travel History, Falls, Spiritual/Procedural, Adv Dir, Violence, Depression, Substance, Nutrition/Learning Last Updated: 28-Aug-2021 15:47 by Lisette Valle (RN) Normal [facility] Narrative Note - Outpatient- Community Health Workeron 08-25-2021 Narrative Note - Outpatient-Community Health Worker Narrative Note: CHW: [facility] Health Worker Best way to contact patient#[id number] Veteranno Has patient been seen by a [...] appt. scheduled on 08/28/21@2p and listed having [employer] [place] A & B (payor rejection). CHW contacted pt. and she stated that she has open [employer] health insurance. Pt. also stated he last name was being spelled wrong and that it should list [place] not [place]. Electronic Signatures: Leroy Gallegos (COOR) (Signed 25-Aug-2021 11:50) Authored: CHW Last Updated: 25-Aug-2021 11:50 by Leroy Gallegos (COOR) Normal [facility] CHEMISTRYOrdered By: SYSTEM SYSTEM on [...] 54 mL/min/1.73 m2 Low >=59mL/min /1.73 m2 [facility] Chem S Globulin (S) [Mass/Vol] 3.1 g/dL [...] E9/L Normal 150. 0 - 500.0 E9/L [facility] HemeAutoSS RBC (Bld) [#/Vol] 4.6 E12/L Normal 4.3 - 5.9 E12/L [facility] HemeAutoSS WBC corrected for nucl RBC Auto (Bld) [#/Vol] 7.6 E9/L Normal 4.0 - 11.0 E9/L [facility] HemeAutoSS Nurse Navigator - Breast-Sec ond Opinionon [...] explained role within the multidisciplinary team at [facility]; reviewed upcoming appointment with Dr. Seay, [...] 16-Aug-2021 11:34 by Aliya Dobson (DELGADO) Normal [facility] CHEMISTRYOrdered By: SYSTEM SYSTEM on 08-07-2021 Albumin [Mass/Vol] 3.6 g/dL Normal 3.3 - 5.0 gm/dL [facility] Remisol Albumin/Globulin [Mass ratio] 1.1 {ratio} Normal [...] 10 - 20 [facility] HEMATOLOGYOrdered By: GuideIT SYSTEM on 08-07-2021 Basophils/100 WBC (Bld) 1.4 [...] 4.9 E12/L Normal 4.3 - 5.9 E12/L [facility] HemeAutoSS WBC corrected for nucl RBC Auto (Bld) [#/Vol] 6.1 E9/L Normal 4.0 - 11.0 E9/L [facility] HemeAutoSS Vital Signs Date Time Vital Sign Value Performing Clinician Facility 09-12-2023 10:19-0400 Body temperature 97.88 [degF] [facility] 09-12-2023 10:19-0400 Diastolic blood pressure 72 mm[Hg] [facility] 09-12-2023 10:19-0400 Heart rate 61 /min [facility] 09-12-2023 10:19-0400 Mean blood pressure 84 mm[Hg] [facility] 09-12-2023 10:19-0400 Respiratory rate 18 /min [facility] 09-12-2023 10:19-0400 SaO2% (BldA) [Mass fraction] 99 % [facility] 09-12-2023 10:19-0400 Systolic blood pressure 107 mm[Hg] [facility] 08-30-2023 08:10-0400 Body height 160.02 cm MD Mary Rodriguez Work Phone: [facility] 08-30-2023 [id number] Body weight 81.64 kg MD Mary Rodriguez Work Phone: [facility] 06-12-2023 10:55-0500 Body temperature 98.06 [degF] [facility] 06-12-2023 10:55-0500 Diastolic blood pressure 66 mm[Hg[facility] 06-12-2023 10:55-0500 Heart rate 68 /min [facility] 06-12-2023 10:55-0500 Mean blood pressure 79 mm[Hg] [facility] 06-12-2023 10:55-0500 Respiratory rate 16 /min [facility] 06-12-2023 10:55-0500 SaO2% (BldA) [Mass fraction] 97 % [facility] 06-12-2023 10:55-0500 Systolic blood pressure 106 mm[Hg] [facility] 05-31-2023 08:36-0500 Body height 160.02 cm MD Mary Rodriguez Work Phone: [facility] 05-31-2023 08:36-0500 Body weight 86.18 kg MD Mary Rodriguez Work Phone: [facility] 05-01-2023 14:03-0500 Heart rate 70 /min [facility] 05-01-2023 14:03-0500 SaO2% (BldA) [Mass fraction] 98 % [facility] 05-01-2023 14:02-0500 Body temperature 98.24 [degF] [facility] 05-01-2023 14:02-0500 Diastolic blood pressure 81 mm[Hg] [facility] 05-01-2023 14:02-0500 Mean blood pressure 93 mm[Hg] [facility] 05-01-2023 14:02-0500 Systolic blood pressure 118 mm[Hg] [facility] 01-30-2023 14:25-0400 Heart rate 76 /min Senthilleopoldo Caldera [facility] 01-30-2023 14:25-0400 SaO2% (BldA) [Mass fraction] 96 % Senthil Caldera [facility] 01-30-2023 14:25-0400 Diastolic blood pressure 61 mm[Hg] Senthilleopoldo Caldera [facility] 01-30-2023 14:25-0400 Mean blood pressure 79 mm[Hg] [facility] 01-30-2023 14:25-0400 Systolic blood pressure 115 mm[Hg] [facility] 01-30-2023 14:25-0400 Body temperature 97.7 [degF] [facility] 01-30-2023 14:00-[address] [facility] 01-30-2023 14:00-0400 Respiratory rate 16 /min [facility] 12-23-2022 10:15-0400 Hourly Rounding Mbanefo OJUKWU [facility] 12-23-2022 10:15-0400 Promise to Return Mbanefo OJUKWU [facility] 12-23-2022 09:00-0400 Hourly Rounding Mbanefo OJUKWU [facility] 12-23-2022 09:00-0400 Promise to Return Mbanefo OJUKWU [facility] 12-23-2022 08:46-0400 Diastolic blood pressure 64 mm[Hg] Mbanefo OJUKWU [facility] 12-23-2022 08:46-0400 Systolic blood pressure 96 mm[Hg] Mbanefo OJUKWU [facility] 12-23-2022 08:40-0400 gluc 111 mg/dL Mbanefo OJUKWU [facility] 12-23-2022 08:37-0400 Heart rate 56 /min Mbanefo OJUKWU [facility] 12-23-2022 08:37-0400 SaO2% (BldA) [Mass fraction] 96 % Mbanefo OJUKWU [facility] 12-23-2022 08:37-0400 Respiratory rate 18 /min Mbanefo OJUKWU [facility] 12-23-2022 08:37-0400 Body temperature 97.88 [degF] Mbanefo OJUKWU [facility] 12-23-2022 08:37-0400 Diastolic blood pressure 64 mm[Hg] Mbanefo OJUKWU [facility] 12-23-2022 08:37-0400 Mean blood pressure 74 mm[Hg] Mbanefo OJUKWU [facility] 12-23-2022 08:37-0400 Systolic blood pressure 96 mm[Hg] Mbanefo OJUKWU [facility] 12-23-2022 08:00-0400 Hourly Rounding Mbanefo OJUKWU [facility] 12-23-2022 08:00-0400 Promise to Return Mbanefo OJUKWU [facility] 12-22-2022 23:44-0400 Heart rate 58 /min Mbanefo OJUKWU [facility] 12-22-2022 23:44-0400 SaO2% (BldA) [Mass fraction] 97 % Mbanefo OJUKWU [facility] 12-22-2022 23:44-0400 Body temperature 98.06 [degF] Mbanefo OJUKWU [facility] 12-22-2022 23:44-0400 Diastolic blood pressure 60 mm[Hg] Mbanefo OJUKWU [facility] 12-22-2022 23:44-0400 Mean blood pressure 72 mm[Hg] Mbanefo OJUKWU [facility] 12-22-2022 23:44-0400 Systolic blood pressure 96 mm[Hg] Mbanefo OJUKWU [facility] 12-22-2022 19:33-0400 Heart rate 62 /min Mbanefo OJUKWU [facility] 12-22-2022 19:33-0400 SaO2% (BldA) [Mass fraction] 97 % Mbanefo OJUKWU [facility] 12-22-2022 19:33-0400 Body temperature 98.24 [degF] Mbanefo OJUKWU [facility] 12-22-2022 19:32-0400 Mean blood pressure 69 mm[Hg] Mbanefo OJUKWU [facility] 12-22-2022 16:03-0400 gluc 129 mg/dL Mbanefo OJUKWU [facility] 12-22-2022 15:46-0400 Respiratory rate 16 /min Mbanefo OJUKWU [facility] 12-22-2022 11:52-0400 gluc 158 mg/dL Mbanefo OJUKWU [facility] 12-22-2022 11:13-0400 Respiratory rate 13 /min Mbanefo OJUKWU [facility] 12-22-2022 06:56-0400 Blood Pressure Location Mbanefo OJUKWU [facility] 12-22-2022 06:56-0400 Body temperature 98.42 [degF] Mbanefo OJUKWU [facility] 12-22-2022 06:56-0400 Mean blood pressure 85 mm[Hg] Mbanefo OJUKWU [facility] 12-21-2022 23:00-0400 Blood Pressure Location Mbanefo OJUKWU [facility] 12-21-2022 23:00-0400 Body temperature 98.96 [degF] Mbanefo OJUKWU [facility] 12-21-2022 23:00-0400 Mean blood pressure 84 mm[Hg] Mbanefo OJUKWU [facility] 12-21-2022 05:35-0400 Mean blood pressure 79 mm[Hg] Mbanefo OJUKWU [facility] 12-20-2022 21:08-0400 Body temperature 97.7 [degF] Mbanefo OJUKWU [facility] 12-20-2022 21:08-0400 Heart rate 65 /min Mbanefo OJUKWU [facility] 12-20-2022 15:06-0400 Heart rate 75 /min Mbanefo OJUKWU [facility] 12-20-2022 00:45-0400 Diastolic blood pressure 72 mm[Hg] David Ran [facility] 12-20-2022 00:45-0400 Heart rate 76 /min David Ran [facility] 12-20-2022 00:45-0400 Mean blood pressure 89 mm[Hg] David Ran [facility] 12-20-2022 00:45-0400 Respiratory rate 14 /min David Ran [facility] 12-20-2022 00:45-0400 SaO2% (BldA) [Mass fraction] 100 % David Ran [facility] 12-20-2022 00:45-0400 Systolic blood pressure 124 mm[Hg] David Ran [facility] 12-20-2022 00:15-0400 Diastolic blood pressure 70 mm[Hg] David Ran [facility] 12-20-2022 00:15-0400 Heart rate 71 /min David Ran [facility] 12-20-2022 00:15-0400 Mean blood pressure 92 mm[Hg] David Ran [facility] 12-20-2022 00:15-0400 Respiratory rate 14 /min David Ran [facility] 12-20-2022 00:15-0400 SaO2% (BldA) [Mass fraction] 92 % David Ran [facility] 12-20-2022 00:15-0400 Systolic blood pressure 137 mm[Hg] David Ran [facility] 12-19-2022 23:45-0400 Diastolic blood pressure 61 mm[Hg] David Ran [facility] 12-19-2022 23:45-0400 Heart rate 80 /min David Tong [facility] 12-19-2022 23:45-0400 Mean blood pressure 85 mm[Hg] David Tong [facility] 12-19-2022 23:45-0400 Respiratory rate 16 /min David Tong [facility] 12-19-2022 23:45-0400 SaO2% (BldA) [Mass fraction] 97 % David Tong [facility] 12-19-2022 23:45-0400 Systolic blood pressure 132 mm[Hg] David Tong [facility] 12-19-2022 20:41-0400 Body temperature 98.24 [degF] David Tong [facility] 12-19-2022 20:41-0400 Heart rate 82 /min David Tong [facility] 12-19-2022 20:41-0400 Respiratory rate 20 /min David Tong [facility] 12-17-2022 13:20-0400 Diastolic blood pressure 77 mm[Hg] Jeffery Murphy [facility] 12-17-2022 13:20-0400 Heart rate 60 /min Jeffery Murphy [facility] 12-17-2022 13:20-0400 Hourly Rounding Jeffery Murphy [facility] 12-17-2022 13:20-0400 Mean blood pressure 95 mm[Hg] Jeffery Murphy [facility] 12-17-2022 13:20-0400 Promise to Return Jeffery Murphy [facility] 12-17-2022 13:20-0400 SaO2% (BldA) [Mass fraction] 97 % Jeffery Katherine [facility] 12-17-2022 13:20-0400 Systolic blood pressure 132 mm[Hg] Jeffery Katherine [facility] 12-17-2022 12:20-0400 Diastolic blood pressure 71 mm[Hg] Jeffery Katherine [facility] 12-17-2022 12:20-0400 Heart rate 71 /min Jeffery Katherine [facility] 12-17-2022 12:20-0400 Hourly Rounding Jeffery Katherine [facility] 12-17-2022 12:20-0400 Mean blood pressure 86 mm[Hg] Jeffery Katherine [facility] 12-17-2022 12:20-0400 Promise to Return Jeffery Katherine [facility] 12-17-2022 12:20-0400 SaO2% (BldA) [Mass fraction] 96 % Jeffery Katherine [facility] 12-17-2022 12:20-0400 Systolic blood pressure 117 mm[Hg] Jeffery Katherine [facility] 12-17-2022 11:21-0400 Hourly Rounding Jeffery Castelane [facility] 12-17-2022 11:21-0400 Promise to Return Jeffery Katherine [facility] 12-17-2022 11:20-0400 Diastolic blood pressure 84 mm[Hg] Jeffery Katherine [facility] 12-17-2022 11:20-0400 Heart rate 68 /min Jeffery Katherine [facility] 12-17-2022 11:20-0400 Mean blood pressure 99 mm[Hg] Jeffery Murphy [facility] 12-17-2022 11:20-0400 Respiratory rate 18 /min Jeffery Murphy [facility] 12-17-2022 11:20-0400 SaO2% (BldA) [Mass fraction] 96 % Jefefry Murphy [facility] 12-17-2022 11:20-0400 Systolic blood pressure 130 mm[Hg] Jeffery Murphy [facility] 12-17-2022 10:22-0400 Body temperature 97.88 [degF] Jeffery Murphy [facility] 12-17-2022 10:22-0400 Heart rate 69 /min Jeffery Murphy [facility] 12-17-2022 10:22-0400 Respiratory rate 18 /min Jeffery Murphy [facility] 11-04-2022 14:00-0400 Hourly Rounding Ronobir JESSICA [facility] 11-04-2022 13:40-0400 Hourly Rounding Ronobir JESSICA [facility] 11-04-2022 13:40-0400 Promise to Return Ronobir JESSICA [facility] 11-04-2022 13:00-0400 Hourly Rounding Ronobir JESSICA [facility] 11-04-2022 12:26-0400 Promise to Return Ronobir JESSICA [facility] 11-04-2022 11:48-0400 Heart rate 78 /min Ronobir JESSICA [facility] 11-04-2022 11:48-0400 SaO2% (BldA) [Mass fraction] 95 % Ronobir JESSICA [facility] 11-04-2022 11:48-0400 Diastolic blood pressure 83 mm[Hg] Ronobir JESSICA [facility] 11-04-2022 11:48-0400 Mean blood pressure 96 mm[Hg] Ronobir JESSICA [facility] 11-04-2022 11:48-0400 Systolic blood pressure 122 mm[Hg] Ronobir JESSICA [facility] 11-04-2022 11:48-0400 Body temperature 98.24 [degF] Ronobir JESSICA [facility] 11-04-2022 11:17-0400 Promise to Return Ronobir JESSICA [facility] 11-04-2022 08:24-0400 Diastolic blood pressure 78 mm[Hg] Ronobir JESSICA [facility] 11-04-2022 08:24-0400 Systolic blood pressure 127 mm[Hg] Ronobir JESSICA [facility] 11-04-2022 07:32-0400 Heart rate 77 /min Ronobir JESSICA [facility] 11-04-2022 07:32-0400 SaO2% (BldA) [Mass fraction] 94 % Ronobir JESSICA [facility] 11-04-2022 07:31-0400 Body temperature 97.7 [degF] Ronobir JESSICA [facility] 11-04-2022 07:31-0400 Diastolic blood pressure 78 mm[Hg] Ronobir JESSICA [facility] 11-04-2022 07:31-0400 Mean blood pressure 94 mm[Hg] Ronobir JESSICA [facility] 11-04-2022 07:31-0400 Systolic blood pressure 127 mm[Hg] Ronobir JESSICA [facility] 11-03-2022 23:16-0400 Heart rate 79 /min Ronobir JESSICA [facility] 11-03-2022 23:16-0400 SaO2% (BldA) [Mass fraction] 97 % Ronobir JESSICA [facility] 11-03-2022 23:16-0400 Mean blood pressure 108 mm[Hg] Ronobir JESSICA [facility] 11-03-2022 23:15-0400 Body temperature 97.7 [degF] Ronobir JESSICA [facility] 11-03-2022 20:00-0400 Blood Pressure Location Ronobir JESSICA [facility] 11-03-2022 20:00-0400 Respiratory rate 21 /min Ronobir JESSICA [facility] 11-03-2022 09:00-0400 Mean blood pressure 87 mm[Hg] Ronobir JESSICA [facility] 11-03-2022 09:00-0400 Respiratory rate 16 /min Ronobir JESSICA [facility] 11-02-2022 21:15-0400 Mean blood pressure 95 mm[Hg] Ronobir JESSICA [facility] 11-02-2022 11:51-0400 Respiratory rate 18 /min Ronobir JESSICA [facility] 11-02-2022 03:50-0400 Heart rate 68 /min Ronobir JESSICA [facility] 11-02-2022 03:18-0400 Respiratory rate 10 /min Ronobir JESSICA [facility] 11-02-2022 02:38-0400 Nursing Progress Note Reason Other: pt complains of back pain. repositioned in bed. medicated for pain. Ronobir JESSICA [facility] 11-02-2022 02:38-0400 Respiratory rate 7 /min Ronobir JESSICA [facility] 11-02-2022 02:37-0400 Heart rate 73 /min Ronobir JESSICA [facility] 11-01-2022 23:15-0400 Nursing Progress Note Reason Other: trauma made medical at this time. mini cath done and urine sent to lab. pt repositioned in bed Ronobir JESSICA [facility] 11-01-2022 22:53-0400 Body temperature 96.62 [degF] Ronobir JESSICA [facility] 11-01-2022 22:53-0400 Heart rate 74 /min Ronobir JESSICA [facility] 11-01-2022 22:03-0400 Heart rate 69 /min Ronobir JESSICA [facility] 08-01-2022 13:00-0400 Blood Pressure Location Senthil Laishaflaquito [facility] 08-01-2022 13:00-0400 Body temperature 98.6 [degF] Senthil Caldera [facility] 08-01-2022 13:00-0400 Diastolic blood pressure 84 mm[Hg] Senthil Caldera [facility] 08-01-2022 13:00-0400 Heart rate 76 /min Senthil Caldera [facility] 08-01-2022 13:00-0400 Mean blood pressure 101 mm[Hg] [facility]-01-[facility] 13:00-0400 [facility]piratory rate 16 /[facility] 08-01-2022 13:00-0400 SaO2% (BldA) [Mass fraction] 97 % [facility] 08-01-2022 13:00-0400 Systolic blood pressure 136 mm[Hg] [facility] 06-06-2022 12:59-0500 Heart rate 61 /min [facility] 06-06-2022 12:59-0500 SaO2% (BldA) [Mass fraction] 98 % [facility] 06-06-2022 12:59-0500 Respiratory rate 16 /min [facility] 06-06-2022 12:59-0500 Body temperature 97.7 [degF] [facility] 06-06-2022 12:58-0500 Diastolic blood pressure 106 mm[Hg] [facility] 06-06-2022 12:58-0500 Mean blood pressure 116 mm[Hg] [facility] 06-06-2022 12:58-0500 Systolic blood pressure 137 mm[Hg] [facility] 03-28-2022 14:10-0500 Heart rate 66 /min [facility] 03-28-2022 14:10-0500 SaO2% (BldA) [Mass fraction] 96 % [facility] 03-28-2022 14:09-0500 Body temperature 98.42 [degF] [facility] 03-28-2022 14:09-0500 Diastolic blood pressure 77 mm[Hg] [facility] 03-28-2022 14:09-0500 Mean blood pressure 93 mm[Hg] [facility] 03-28-2022 14:09-0500 Systolic blood pressure 127 mm[Hg] [facility] 03-28-2022 14:09-[address] [facility] 03-28-2022 14:09-0500 Body temperature 98.42 [degF] [facility] 03-28-2022 14:09-0500 Mean blood pressure 94 mm[Hg] [facility] 03-28-2022 14:09-0500 Respiratory rate 18 /min [facility] 01-18-2022 14:13-[address] [facility] 01-18-2022 14:13-0400 Body temperature 98.06 [degF] [facility] 14:13-0400 BP/Pulse Patient Position [facility] 01-18-2022 14:13-0400 Diastolic blood pressure 82 mm[Hg] [facility] 01-18-2022 14:13-0400 Heart rate 59 /min [facility] 01-18-2022 14:13-0400 Mean blood pressure 98 mm[Hg] [facility] 01-18-2022 14:13-0400 Respiratory rate 16 /min [facility] 01-18-2022 14:13-0400 SaO2% (BldA) [Mass fraction] 98 % [facility] 01-18-2022 14:13-0400 Systolic blood pressure 131 mm[Hg] [facility] 12-21-2021 13:34-0400 Blood Pressure Location Nohemi Garcia [facility] 12-21-2021 13:34-0400 Body temperature 98.6 [degF] Nohemi Garcia [facility] 12-21-2021 13:34-0400 BP/Pulse Patient Position Nohemi Garcia [facility] 12-21-2021 13:34-0400 Diastolic blood pressure 85 mm[Hg] Nohemi Garcia [facility] 12-21-2021 13:34-0400 Heart rate 67 /min Nohemi Garcia [facility] 12-21-2021 13:34-0400 Mean blood pressure 101 mm[Hg] Nohemi Garcia [facility] 12-21-2021 13:34-0400 Respiratory rate 18 /min Nohemi Garcia [facility] 12-21-2021 13:34-0400 SaO2% (BldA) [Mass fraction] 93 % Nohemi Garcia [facility] 12-21-2021 13:34-0400 Systolic blood pressure 132 mm[Hg] Nohemi Garcia [facility] 12-21-2021 13:34-0400 Mean blood pressure 101 mm[Hg] Nohemi Garcia [facility] 11-30-2021 13:16-0400 Body temperature 98.24 [degF] Senthil Laishaflaquito [facility] 11-30-2021 13:16-0400 Diastolic blood pressure 79 mm[Hg] Senthilleopoldo Caldera [facility] 11-30-2021 13:16-0400 Heart rate 78 /min Senthil Verenice [facility] 11-30-2021 13:16-0400 Mean blood pressure 98 mm[Hg] Senthil Caldera [facility] 11-30-2021 13:16-0400 SaO2% (BldA) [Mass fraction] 96 % Senthilleopoldo Caldera [facility] 11-30-2021 13:16-0400 Systolic blood pressure 136 mm[Hg] Senthil Caldera [facility] 11-30-2021 13:00-0400 Blood Pressure Location Senthil Caldera [facility] 11-30-2021 13:00-0400 Respiratory rate 16 /min Senthil Caldera [facility] 11-02-2021 11:53-0400 Blood Pressure Location Nohemi Garcia [facility] 11-02-2021 11:53-0400 Body temperature 98.06 [degF] Nohemi Garcia [facility] 11-02-2021 11:53-0400 BP/Pulse Patient Position Nohemi Garcia [facility] 11-02-2021 11:53-0400 Diastolic blood pressure 64 mm[Hg] Nohemi Garcia [facility] 11-02-2021 11:53-0400 Heart rate 64 /min Nohemi Garcia [facility] 11-02-2021 11:53-0400 Mean blood pressure 89 mm[Hg] Noehmi Garcia [facility] 11-02-2021 11:53-0400 Respiratory rate 17 /min Nohemi Garcia [facility] 11-02-2021 11:53-0400 SaO2% (BldA) [Mass fraction] 97 % Nohemi Garcia [facility] 11-02-2021 11:53-0400 Systolic blood pressure 140 mm[Hg] Nohemi Garcia [facility] 10-05-2021 13:46-0400 Body temperature 98.42 [degF] Senthil Caldera [facility] 10-05-2021 13:46-0400 Diastolic blood pressure 83 mm[Hg] [facility]enthil [facility] 10-05-2021 13:46-0400 Heart rate 69 /min [facility]illeopoldo [facility] 10-05-2021 13:46-0400 Mean blood pressure 104 mm[Hg] [facility] 10-05-2021 13:46-0400 SaO2% (BldA) [Mass fraction] 96 % [facility]opoldo [facility] 10-05-2021 13:46-0400 Systolic blood pressure 146 mm[Hg] [facility]illeopoldo [facility] 09-07-2021 12:48-0400 Body temperature 98.6 [degF] [facility]-07-2021 12:48-0400 Diastolic blood pressure 70 mm[Hg] [facility]illeopoldo [facility] 09-07-2021 12:48-0400 Heart rate 72 /min [facility] 09-07-2021 12:48-0400 Mean blood pressure 83 mm[Hg] [facility] 09-07-2021 12:48-0400 SaO2% (BldA) [Mass fraction] 96 % [facility] 09-07-2021 12:48-0400 Systolic blood pressure 109 mm[Hg] [facility] 09-07-2021 12:00-0400 Heart rate 69 /min [facility] 09-07-2021 12:00-0400 SaO2% (BldA) [Mass fraction] 98 % [facility] 09-03-2021 00:20-0400 Body temperature 98.78 [degF] [employer] [facility] 09-03-2021 00:20-0400 Diastolic blood pressure 80 mm[Hg] Carlos Martin [facility] 09-03-2021 00:20-0400 Heart rate 86 /min Carlos Martin [facility] 09-03-2021 00:20-0400 Respiratory rate 16 /min Carlos Martin [facility] 09-03-2021 00:20-0400 SaO2% (BldA) [Mass fraction] 95 % Carlos Salazar [facility] 09-03-2021 00:20-0400 Systolic blood pressure 146 mm[Hg] Carlos Salazar [facility] 08-10-2021 12:35-0400 Body temperature 98.06 [degF] Rickey Askew [facility] 08-10-2021 12:35-0400 Diastolic blood pressure 72 mm[Hg] Rickey Askew [facility] 08-10-2021 12:35-0400 Heart rate 77 /min Rickey Askew [facility] 08-10-2021 12:35-0400 Mean blood pressure 84 mm[Hg] Rickey Askew [facility] 08-10-2021 12:35-0400 Respiratory rate 12 /min Rickey Askew [facility] 08-10-2021 12:35-0400 SaO2% (BldA) [Mass fraction] 97 % Rickey Askew [facility] 08-10-2021 12:35-0400 Systolic blood pressure 108 mm[Hg] Rickey Askew [facility] 07-26-2021 10:27-0400 Body temperature 97.88 [degF] Senthil Caldera [facility] 07-26-2021 10:27-0400 Diastolic blood pressure 84 mm[Hg] Senthil Caldera [facility] 07-26-2021 10:27-0400 Heart rate 59 /min [facility]enthil [facility] 07-26-2021 10:27-0400 Mean blood pressure 112 mm[Hg] [facility] 07-26-2021 10:27-0400 SaO2% (BldA) [Mass fraction] 97 % Senthilleopoldo Caldera [facility] 07-26-2021 10:27-0400 Systolic blood pressure 169 mm[Hg] [facility] 07-26-2021 10:00-0400 Respiratory rate 16 /[facility] 07-18-2021 12:18-0400 Body temperature 97.7 [degF] [facility] 07-18-2021 12:18-0400 Diastolic blood pressure 83 mm[Hg] [facility] 07-18-2021 12:18-0400 Heart rate 60 /min [facility] 07-18-2021 12:18-0400 Mean blood pressure 106 mm[Hg] [facility] 07-18-2021 12:18-0400 SaO2% (BldA) [Mass fraction] 98 % [facility] 07-18-2021 12:18-0400 Systolic blood pressure 152 mm[Hg] [facility] 07-18-2021 12:00-0400 Respiratory rate 16 /min [facility] 07-11-2021 10:20-0400 Body temperature 97.7 [degF] Gavino TABOR [facility] [place] Encounters Encounter Date Encounter Type Care Provider Facility Start: 09-12-2023 End: 09-13-2023 ambulatory Senthil Caldera Facility:[facility] Start: 09-12-2023 End: 09-12-2023 Patient encounter procedure [facility] Start: 08-30-2023 End: 08-30-2023 ambulatory Mary Rodriguez Facility:[facility] Start: 08-30-2023 End: 08-30-2023 ambulatory MD Mary Rodriguez Work Phone: [facility] Work Phone: Start: 08-30-2023 End: 08-30-2023 Patient encounter procedure MD Mary Rodriguez Work Phone: [facility] Work Phone: Start: 06-12-2023 End: 06-13-2023 ambulatory Senthil Caldera Facility:[facility]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 DObr\Date and Time Signed: 12/20/22 19:18 [id number] Evaluation + Plan noteExtracted from: Title:ED Note Author:David Tong MD Date: 1. Generalized weakness (R53 .1: Weakness) 2. Frequent falls (R29.6: Repeated falls) 3. Anemia (D64.9: Anemia, unspecified) 4. Dehydration (E86.0: Dehydration) 5. Urinary tract infection (N39.0: Urinary tract infection, site not specified) Orders: cephalexin, 500 mg = 1 cap(s), Oral, QID, X 7 day(s), # 28 cap(s), Refills(s) 0, Pharmacy: [email or web address], 167.6, cm, 12/19/22 20:43:00 EDT, Height/Length [...] 29 11/22/22 * CBC w/ Auto Diff 7/6/23 * CBC w/ Auto Diff 11/22/22 * Comprehensive Metabolic Panel 10/25/22 * Comprehensive Metabolic Panel 11/22/22 [facility]08-31-2023 Hospital Discharge instructions Patient Education 12/20/2022 00:37:19 Urinary Tract Infection, Adult, Orbb-kv-Ihqg Urinary Tract Infection, Adult A urinary tract [...] Follow these instructions at home: Medicines Take qwfp-vrl-adqvqic and prescription medicines only as told by [...] provider. Document Revised: 11/18/2020 Document Reviewed: 11/18/2020 [employer] Patient Education 2022 [employer] 12/20/2022 00:37:19 Anemia Anemia Anemia is [...] spleen. Follow these instructions at home: Take szzy-qll-mhngpcn and prescription medicines only as told by [...] provider. Document Revised: 02/20/2022 Document Reviewed: 03/15/2020 [employer] Patient Education 2022 [employer]. 12/20/2022 00:37:19 Dehydration, Adult, Xscw-we-Pfto Dehydration, Adult Dehydration is condition in which [...] of fat or sugar. General instructions Take nmkz-gsw-iqzgmmw and prescription medicines only as told by [...] start slowly drinking other clear fluids. Take ffkf-uog-fruwopo and prescription medicines only as told by your doctor. Get help right away if you have any symptoms of very bad dehydration. This information is not intended to replace advice given to you by your health care provider. Make sure you discuss any questions you have with your health care provider. Document Revised: 11/19/2019 Document Reviewed: 11/19/2019 [employer] Patient Education 2022 [employer]. Follow Up Care 12/19/2022 20:39:35 With:Rickey Askew Address: [place] [address] Business (1) When:12/21/2022 [facility]08-28-2023 Hospital Discharge instructions Patient Education 12/17/2022 [...] Follow these instructions at home: Medicines Take iesg-oen-fajzsjt and prescription medicines only as told by [...] as fried or sweet foods. ?Take an jbtg-zhn-pieakgq or prescription medicine for constipation. If you [...] provider. Document Revised: 02/05/2022 Document Reviewed: 02/05/2022 [employer] Patient Education 2022 [employer]. Follow Up Care 12/17/2022 10:20:15 With:JOSÉ ANTONIO VARGAS Address: [address] [place] [id number] Business (1) When:12/20/2022 12:53:13 With:Gavino Lugo Address: [address] [place] [address] Business (1) When:12/20/2022 12:52:03 With:Rickey Askew Address: [address] [place] [address] Business (1) When:12/20/2022 12:51:59 [facility]08-28-2023 Evaluation + Plan noteExtracted from: Title:ED Note Author:Gui Scruggs PA-C te:12/17/22 Fall (W19.XXXA: Unspecified fall, initial encounter) Lumbar compression fracture (S32.000A: Wedge compression fracture of unspecified lumbar vertebra, initial encounter for closed fracture) Ordered: oxycodone, 5 mg = 1 tab(s), Oral, q6hr, X 3 day(s), # 15 tab(s), Refills(s) 0, Pharmacy: [facility], 168, cm, 12/17/22 10:29:00 EDT, Height/Length [...] Panel 10/25/22 * Comprehensive Metabolic Panel 11/22/22 [facility]07-18-2023 NoteHOSPITAL REGULATIONS: All Positive and Important Negative Findings Shall Be Recorded Date of Consultation: 11/02/2022 Attending Physician: Mariia Lopez D.O. Consulting Physician: Gavino Lugo D.O. ORTHOPEDIC CONSULTATION THIS WAS A CONSULTATION THAT WAS 4 MINUTES 10 SECONDS LONG BUT THERE WAS NO SOUND AT ALL. WILL YOU PLEASE CHECK WITH DR. LUGO AND SEE IF HE ACTUALLY DICTATED THIS? IF SO, HE WILL HAVE TO RE-DICTATEAS NOTHING CAME THROUGH Gavino Lugo D.O. ls Dictated: 11/02/2022 [id number] Transcribed: 11/02/2022 cc:Rickey Askew M.D.[facility] on above:Result Comment: Electronically Signed By: Gavino Lugo DO T\.br\Date and Time Signed: 11/06/22 07:17 [id number] NoteHOSPITAL REGULATIONS: All Positive and Important Negative Findings Shall Be Recorded Date of Consultation: 11/02/2022 Attending Physician: Mariia Lopez D.O. Consulting Physician: Gavino Lugo D.O. REASON FOR CONSULTATION:Left ramus fracture with pain. HISTORY OF PRESENT ILLNESS:Steffi was seen and evaluated on 11/02/2022. She fell in the morning on 11/01. She was utilizing her walker when she dangled some clothes over the front rail that subsequently caught her foot and she fell. She was unable to bear weight and she called her daughter for assistance. She was seen and evaluated in the Emergency Room by Dr. Madrigal. Admission to the hospitalist service was made. Consult was performed on 11/02 for the fractures. She had x-ray of the sacrum as well as pelvis as well as computerized tomography scan. She does have a history of breast carcinoma, poor condition, multiple falls. She comes in with a left hand contusion, bruising to her left upper chest and pain along her left hemipelvis. They did try therapy earlier today which did not go well and she had pain with transfers. She is somewhat adamant about not going to rehabilitation. Her friend from the [place] area, which is her old neighbor, was in the room during the visit. PAST MEDICAL HISTORY:Consistent for breast carcinoma, hypertension, frequent falls, obesity, diabetes, hypercholesterolemia. PAST SURGICAL HISTORY:Breast surgery, tonsils and adenoids. HOME MEDICATIONS: 1. Anastrozole. 2. Arimidex. 3. Fish oil. 4. Furosemide. 5. Kisqali. 6. Lisinopril. 7. Andesterone. 8. Ribociclib. 9. Simvastatin. 10. Vitamin B12. ALLERGIES: 1. Bee stings. 2. Penicillin. 3. Sulfa. PSYCHOSOCIAL HISTORY:Negative. PHYSICAL EXAMINATION: She is seen in Room 303. Nursing staff as well as friend from [place] is present. She has bruising to the left upper chest and clavicle sternal area. No significant hematoma. She has some bruising tothe left dorsal hand. She has stable arc of motion to the upper extremities. Her hip/pelvis examination produces tenderness to the superior inferior ramus that is moderate. She has no sacral tenderness. No contralateral tenderness. The pubic symphysis is non- tender. The patient is neurovascularly intact distally. Her bilateral hip examination is stable. X-RAYS/IMAGING: Reviewed. The initial view from the Emergency Room was a cone down sacral view. AP pelvis is reviewed which shows a mildly displaced superior ramus fracture. It is a nondisplaced leftinferior ramus. Her hips are located. There is moderate degenerative change of the right hip. Thereis mild to moderate degenerative change of the left. There is no obvious sign of tumor or infection. Osteoporotic, pathologic component is present. The right superior inferior ramus has old fracturesper computerized tomography scan that are healed and there is old healed sacral ala fractures on the computerized tomography scan as well. There is no obvious sign of bony metastases with her historyof breast carcinoma. ASSESSMENT: 1. Status post fall with left closed superior and inferior ramus fracture (osteoporotic pathologic) 2. Remote history of right rami fractures. 3. Remote history of sacral ala fractures. 4. Breast carcinoma. 5. Hypertension. TREATMENT PLAN: 1. The nature of the findings were discussed at length. She is weight bearing as tolerated. Physical therapy to work with her. She is adamant about not going to rehabilitation although she did poorlywith therapy the day of the consult in the morning. We discussed deep vein thrombosis prevention per admitting service. She will monitor the hematoma and bruising to the left upper chest area and dorsal left hand, monitoring for signs of infection. Social Service for rehabilitation placement [facility]. Orthopedics to sign off with follow up in the office in 4 weeks for a repeat x-ray examination of the pelvis. She voiced a verbal understanding and her friend from [place] is present. Ivett Palacio Dictated: 11/05/2022 [id number] Transcribed: 11/05/2022 cc:Rickey Askew M.D.[facility] HospitalComment on above:Result Comment: Electronically Signed By: Gavino Lugo DO\.br\Date and Time Signed: 11/06/22 07:17 [id number] NoteAdmission and Discharge Information Admitting Physician - Mariia LOPEZ DO Consulting Physician - Gavino Lugo DO Admitting Diagnoses: Discharge Diagnoses 1. Generalized weakness, 11/02/2022 2. HTN (hypertension), 11/02/2022 3. Hypercholesteremia, 11/02/2022 4. History of breast cancer, 11/02/2022 5. On deep vein thrombosis (DVT) prophylaxis, 11/02/2022 Multiple falls, 11/01/2022 Multiple falls, 11/02/2022 Trauma - minor, 11/01/2022 Weakness or fatigue, 11/01/2022 Procedure History Core needle biopsy of breast (07/04/2021), Tonsillectomy and adenoidectomy. Hospital Course 72-year-old female with medical significant for metastatic breast cancer causing pubic rami fracture and physical deconditioning. Patient was seen by orthopedic surgery for pubic rami fracture okay for outpatient follow-up. She was found to have vitamin D deficiency will be started on Vitamin D 1 tablet once every 7 days. He does have metastatic breast cancer did speak with oncology obtain pelvicscan. She can follow-up with results of that with oncology. She was evaluated by physical therapy and they deemed her appropriate for long term facility. She was accepted to long term facility and will be discharged there. On day of discharge she was vitally hemodynamically and clinically stable. - New Medications/Medication Adjustments - -Vitamin D 1 tab q 7 days - On day of discharge patient was vitally, hemodynamically clinically stable. A good adeola effort was made to discuss the above with the patient. Teach back method was used when discussing plan and need for referrals with patients. - Follow Up Patient is to follow up with Heme/Onc Patient is to follow up with PCP for transition of care - Discharge Instructions: Given Discharge Medications: Reviewed Discharge Status: Improved Discharge disposition: SNF Services Consulted - Completed -- 11/02/22 3:38:20 EDT Consult to Orthopedics - Ordered -- 11/02/22 13:53:00 EDT, sacral rami fx, Consult and Co-manage Physical Exam Vitals & Measurements T: 36.8 ?C(Oral) TMIN: 36.5 ?C(Oral) TMAX: 36.8 ?C(Oral) HR: 78(Monitored) RR: 21 BP: 122/83 SpO2: 95% WT: 88.2 kg General: alert, no acute distress Psychiatric: cooperative, affect appropriate for age Neurological: awake, alert, oriented, speech normal Cardiovascular: no overt murmurs Respiratory: no adventitious breath sounds Gastrointestinal: soft NT, NG, NR Extremities: no rash Laboratory Results Automated Diff (11/01/2022) Neutro Auto - 65.9 % Lymph Auto - 24.6 % Summers Auto - 5.0 % Eos Auto - 3.3 % Basophil Auto - 1.2 % Neutro Absolute - 4.4 E9/L Lymph Absolute - 1.6 E9/L Summers Absolute - 0.3 E9/L Eos Absolute - 0.2 E9/L Basophil Absolute - 0.1 E9/L BMP (11/01/2022) Glucose Lvl - 130 mg/dL BUN - 26 mg/dL Creatinine - 1.3 mg/dL BUN/Creat Ratio - 20 Sodium Lvl - 138 mmol/L Potassium Lvl - 4.2 mmol/L Chloride - 105 mmol/L CO2 - 22 mmol/L AGAP - 15 mEq/L Calcium Lvl - 9.1 mg/dL CBC w/ Auto Diff (11/01/2022) WBC - 6.6 E9/L RBC - 3.7 E12/L Hgb - 12.1 gm/dL Hct - 36.5 % MCV - 99.3 fL MCH - 32.9 pg MCHC - 33.1 gm/dL RDW - 16.3 % Platelet - 229.0 E9/L MPV - 7.3 fL eGFR (11/01/2022) eGFR - 43 mL/min/1.73 m2 Folate Level (11/02/2022) Folate Lvl - 11.4 ng/mL Hepatic Function Panel (11/01/2022) Alk Phos - 110 Int._Unit/L ALT - 13 Int._Unit/L AST - 20 Int._Unit/L Total Protein - 6.9 gm/dL Albumin Lvl - 3.5 gm/dL Globulin - 3.4 gm/dL A/G Ratio - 1.0 Bili Total - 0.9 mg/dL Bili Direct - 0.2 mg/dL Bili Indirect - 0.7 mg/dL RPR with Conf Rfx (11/02/2022) RPR Qual - Non Reactive Troponin 0 Hr. (11/01/2022) Troponin - 7.50 pg/mL TSH With T4fr Reflex (11/02/2022) TSH - 0.93 mcIU/mL UA With Cult Reflex (11/02/2022) UA Spec Desc - Catheter UA Color - Yellow2 UA Clarity - Clear2 UA Spec Grav - 1.025 UA pH - 6.0 UA Protein - Trace2 UA Glucose - NEGATIVE1 UA Ketones - Trace2 UA Bili - NEGATIVE1 UA Blood - Trace2 UA Nitrite - NEGATIVE1 UA Urobilinogen - 1.0 UA Leuk Est - NEGATIVE1 UA RBC - 4-20 UA Squam Epithelial - 3-4 UA WBC - 0-5 UA Bacteria - Trace2 Vitamin B12 Level (11/02/2022) Vitamin B12 Lvl - 470 pg/mL Vitamin D 25 Hydroxy (11/03/2022) Vitamin D 25 Hydroxy - <7.0 ng/mL Tests Performed Automated Diff BMP CBC w/ Auto Diff eGFR Folate Level Hepatic Function Panel RPR with Conf Rfx Troponin 0 Hr. TSH With T4fr Reflex UA With Cult Reflex Vitamin B12 Level Vitamin D [address] Pelvis w/o Contrast Pelvis AP only XR Chest Single View XR Sacrum and Coccyx Min 2 Views Discharge Plan Patient Discharge Condition Stable Discharge Disposition Discharge To, Anticipated II - Senior Living Unit Discharged to - penitentiary unit Discharge Diet Discharge Diet(s): Regular (11/02/22 15:25:00) Discharge Medication List Prescriptions anastrozole 1 mg Tab (more content not included)...[facility] Comment on above:Result Comment: Electronically Signed By: Trevor HANKS, Wyatt\.br\Date and Time Signed: 11/04/22 12:37 [id number] Hospital Discharge instructions Patient Education 11/04/2022 12:28:31 [...] Consider working with a physical therapist or health and safety trainer who can develop an exercise plan to help you gain muscle strength. General instructions Take knvb-kap-nlqwjas and prescription medicines only as told by [...] provider. Document Revised: 03/11/2022 Document Reviewed: 03/11/2022 [employer] Patient Education 2022 [employer]. Follow Up Care 11/01/2022 19:54:24 With:Hollis MERRILL Address: [address] [place] [phone] Business (1) When: Unknown Comments:Urinary retnetion w/dooley With:Gavino Lugo Address: [address] [place] [address]- Business (1) When: Unknown Comments:Call for followup appointment in 4 weeks for repeat pelvis xray With:Rickey Askew Address: [address] [place] [address] Business (1) When: Unknown [facility]07-16-2023 Evaluation + Plan noteExtracted from: Title:Discharge Note Author:Trevor HANKS, Wyatt Lynn ate:11/04/22 Stable Discharge To, Anticipated II - Senior Living Unit Discharged to - penitentiary unit Discharge Diet(s): Regular (11/02/22 15:25:00) Prescriptions anastrozole 1 mg Tab, 1 mg= 1 tab(s), Oral, Daily, 11 refills Arimidex 1 mg Tab, 1 mg= 1 tab(s), Oral, Daily, 3 refills ergocalciferol 50,000 intl units Cap, 34027 International_Unit= 1 cap(s), Oral, q7day Kisqali (200 [...] (at bedtime) With When Contact Information Gavino Lugo [address] [place] [phone] Business (1) Additional Instructions: Call for followup appointment in 4 weeks for repeat pelvis xray Rickey Askew In 0 days [address] [place], [place] [address] Business (1) Additional Instructions: Addendum by Trevor HANKS, [facility] ad on November 04, 2022 12:36:52 [...] deep vein thrombosis (DVT) prophylaxis (Z79.899: 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 Pt. with 12/13 on AM-PAC this date. She is very resistant to movement due to pain. She is unable to stand even with attempts of max A. Will benefit from SNF.[facility]14[facility]23 NoteChief Complaint pt to ED via [facility] with c/o chest bruise from fall earlier today. c/o increasing weakness. denies thinners or hitting head with earlier fall. denies PMH. hx of DM. pt A&Ox4 upon ED arrival, applied to manager cardiac. History of Present Illness Patient is a 72-year-old female with past medical history noted below comes in with above-stated chief complaint. During the day on 11/01/2022 patient had a mechanical fall over her walker. Patient was on the ground and unable to get himself up. Patient called squad for a lift assist. Throughout therest of the day patient was extremely weak and had severe back pain. Patient was unable to ambulatetherefore called squad for evaluation in the emergency department. When I see patient she states that she still has the back pain. She denies any bowel or bladder incontinence. Patient denies any recent fevers, chills, nausea, vomiting, diarrhea, constipation. Patient states that she just cannot walk. Review of Systems 14 Systems reviewed and negative except as noted in HPI. Scoring Gonsalez Fall Risk Score: 40 (11/01/22) Physical Exam Vitals & Measurements T: 35.9 ?C(Tympanic) TMIN: 35.9 ?C(Tympanic) TMAX: 36.7 ?C(Oral) HR: 74(Peripheral) RR: 16 BP: 159/67 SpO2: 92% HT: 167 cm WT: 90.3 kg General: alert, no acute distress Skin: warm, dry Head: no trauma, normocephalic Neck: Trachea midline, no adenopathy, no tenderness Eye: normal conjunctiva, sclera clear ENMT: oral mucosa moist, no pharyngeal erythema or exudate. hearing grossly intact Cardiovascular: regular rate and rhythm, no murmur/gallop/rub Respiratory: Lungs CTA, respirations non labored , no w/r/r Gastrointestinal: Positive bowel sound, soft, non distended, no tenderness, no guarding. Extremities: no deformity, no trauma Osteopathic: Deferred due to being noncontributory to current case. Neurological: oriented x 4, LOC appropriate for age, CN II-XII intact, motor strength equal & normal bilaterally, sensation equal & normal bilaterally, speech normal Psychiatric: cooperative, affect appropriate for age, normal judgement, normal psychiatric thoughts. Lab Results WBC: 6.6 E9/L (11/01/22 22:01:00) RBC: 3.7 E12/L Low (11/01/22 22:01:00) HGB: 12.1 gm/dL (11/01/22 22:01:00) Hct: 36.5 % (11/01/22 22:01:00) MCV: 99.3 fL (11/01/22 22:01:00) MCH: 32.9 pg (11/01/22 22:01:00) MCHC: 33.1 gm/dL (11/01/22 22:01:00) RDW: 16.3 % High (11/01/22 22:01:00) Platelet: 229 E9/L (11/01/22::00) MPV: 7.3 fL (11/01/22::00) Neutro Auto: 65.9 % (11/01/22::00) Lymph Auto: 24.6 % (11/01/22::00) Summers Auto: 5 % (11/01/22::00) Eos Auto: 3.3 % (11/01/22::00) Basophil Auto: 1.2 % (11/01/22::00) Neutro Absolute: 4.4 E9/L (11/01/22::00) Lymph Absolute: 1.6 E9/L (11/01/22::00) Summers Absolute: 0.3 E9/L (11/01/22::00) Eos Absolute: 0.2 E9/L (11/01/22::00) Basophil Absolute: 0.1 E9/L (11/01/22::00) Glucose Lvl: 130 mg/dL (11/01/22::00) BUN: 26 mg/dL High (11/01/22::00) Creatinine: 1.3 mg/dL (11/01/22::00) eGFR: 43 mL/min/1.73 m2 Low (11/01/22::00) BUN/Creat Ratio: 20 (11/01/22::00) Sodium Lvl: 138 mmol/L (11/01/22::00) Potassium Lvl: 4.2 mmol/L (11/01/22::00) Chloride: 105 mmol/L (11/01/22::00) CO2: 22 mmol/L (11/01/22::00) AGAP: 15 mEq/L (11/01/22::00) Calcium Lvl: 9.1 mg/dL (11/01/22::00) Alk Phos: 110 Int._Unit/L High (11/01/22::00) ALT: 13 Int._Unit/L (07/13/23 22:01:00) AST: 20 Int._Unit/L (11/01/22 22:01:00) Total Protein: 6.9 gm/dL (11/01/22 22:01:00) Albumin Lvl: 3.5 gm/dL (11/01/22 22:01:00) Globulin: 3.4 gm/dL (11/01/22 22:01:00) A/G Ratio: 1 Low (11/01/22 22:01:00) Bili Total: 0.9 mg/dL (11/01/22 22:01:00) Bili Direct: 0.2 mg/dL (11/01/22 22:01:00) Bili Indirect: 0.7 mg/dL (11/01/22 22:01:00) Troponin: 7.5 pg/mL Low (11/01/22 22:01:00) UA Spec Desc: Clean Catch (11/01/22 23:20:00) UA Color: Yellow2 (11/01/22 23:20:00) UA Clarity: SL CLOUDY (11/01/22:20:00) UA Spec Grav: 1.025 (11/01/22 23:20:00) UA pH: 6.0 (11/01/22 23:20:00) UA Protein: 1+ Abnormal (11/01/22 23:20:00) UA Glucose: NEGATIVE1 (11/01/22 23:20:00) UA Ketones: Trace2 (11/01/22:20:00) UA Bili: NEGATIVE1 (11/01/22:20:00) UA Blood: 3+ Abnormal (11/01/22:20:00) UA Nitrite: NEGATIVE1 (11/01/22:20:00) UA Urobilinogen: 2.0 Abnormal (11/01/22 23:20:00) UA Leuk Est: NEGATIVE1 (11/01/22:20:00) UA RBC: 21-30 Abnormal (11/01/22 23:20:00) UA Squam Epithelial: 0-2 (11/01/22 23:20:00) UA WBC: 0-5 (11/01/22 23:20:00) UA Mucous: 1+ (11/01/22 23:20:00) Assessment/Plan 1. Generalized weakness (R53.1: Weakness) We will ask physical therapy and Occupational Therapy to evaluate patient. No obvious focal cause noted. We will check vitamin B12, TSH, folate levels, and RPR. 2. HTN (hypertension) (I10: Essential (primary) hypertension) Resume home medications once reconciled. Hydralazine (more content not included)...[facility]Result Comment: Electronically Signed By: Mariia LOPEZ DO\Date and Time Signed: 11/02/22 01:35 [id number] Hospital Discharge instructions Follow Up Care 09/27/2022 14:06:46 With:Senthil Caldera Address: [address] [phone] Fax Business (1) When: Unknown Comments:f/u in 3 months. pet/ct prior to f/u. cont arimidex and kisquali. cbc, cmp and [id number] monthly. [facility]02-15-2023 Hospital Discharge instructions Follow Up Care 06/06/2022 13:40:28 With:Senthil Caldera Address: [address] [phone] Fax Business (1) When: Unknown Comments:cbc, cmp, [id number] in 4 weeks and prior to f/u in 8 weeks. f/u with telephone engineer. iron studies, b12, folate with next labs. [facility]12-07-2022 Hospital Discharge instructions Follow Up Care 03/28/2022 14:49:31 With:Senthil Caldera Address: [address] [phone] Fax Business (1) When: Unknown Comments:f/u in 2 months. pet/ct prior to f/ucbc, cmp, [id number], every 6 weeks. [facility]09-29-2022 Hospital Discharge instructions Follow Up Care 01/18/2022 14:52:57 With:Senthil Caldera Address: [place] [phone] Fax Business (1) When: Unknown Comments:raise kisquali to 400mg for 3wks on and 1 week off. f/u with me or anthony in 2 months. cbc, cmp, [id number] prior to f/ucbc, cmp monthly onthis medicaztion cont arimidex. [facility]09-01-2022 Hospital Discharge instructions Follow Up Care 12/21/2021 14:19:38 With:Senthil Caldera Address: [place] [phone] Fax Business (1) When: Unknown Comments:continue Kisqali 200mg 3wks on, 1wk offcbc, cmp in 4wks and 8wksPET scan in Novfollow-up in 8wks with Dr. Hernandez after PET scan [facility]08-11-2022 Hospital Discharge instructions Follow Up Care 11/30/2021 13:55:25 With:Senthil Caldera Address: [address] [phone] Fax Business (1) When: Unknown Comments:re-start kisqali at 200mg daily x 3 weeks, then 1 week offcmp weekly x 4wksfollow-up with Dr. Hernandez in 4wkscbc, cmp at follow-up [facility]07-14-2022 Hospital Discharge instructions Follow Up Care 11/02/2021 12:27:30 With:Senthil Caldera Address: [address] [phone] Fax Business (1) When: Unknown Comments:cont arimidex. Hold kisquali for 3 wks, recheck cbc, cmp, prior to f/u. hold lasix. Send this note to Dr. Kofi sumner. [facility]06-16-2022 Hospital Discharge instructions Follow Up Care 10/05/2021 14:21:47 With:Senthil Caldera Address: [place] [phone] Fax Business (1) When: Unknown Comments:continue kisqalifollow-up in 1mocbc, cmp at follow-up [facility]05-19-2022 Hospital Discharge instructions Follow Up Care 09/07/2021 13:41:37 With:Senthil Caldera Address: [facility] [place] [phone] Fax Business (1) When: Unknown Comments:continue Kisqali follow-up in 1 mocbc, cmp, [id number] at follow-up [facility]05-15-2022 Evaluation + Plan noteExtracted from: Title:ED [...] Location:FT.ONCOLOGY Appointment Type:ONC Office Visit 15 (FT) [facility]05-15-2022 Hospital Discharge instructions Patient Education 09/03/2021 [...] instructions at home: Medicines Take and apply alzy-abg-mdipwej and prescription medicines only as told by [...] what causes your hives. Take and apply mvgv-klb-bshchma and prescription medicines only as told by your health care provider. Keep all follow-up visits as told by your health care provider. This is important. This information is not intended to replace advice given to you by your health care provider. Make sure you discuss any questions you have with your health care provider. Document Released: 04/08/2006 Document Revised: 10/22/2018 Document Reviewed: 10/22/2018 [employer] Patient Education 2020 [employer]. Follow Up Care 09/03/2021 00:14:38 With:Rickey Askew Address: [address] [place] [phone]- Business (1) When:Within 3 Day(s) [facility]04-21-2022 Hospital Discharge instructions Follow Up Care 08/10/2021 13:38:09 With:Nohemi Radha Address: [place] [phone] Business (1) When: Unknown Comments:f/u 1 monthcont kisquali.cbc, cmp, [id number] at f/u. With:Senthil Caldera Address: [place] [address]- [phone] Fax Business (1) When: Unknown [facility]04-05-2022 Hospital Discharge instructions Follow Up Care 07/25/2021 15:46:11 With:Senthil Caldera Address: [place] [phone] Fax Business (1) When: Unknown Comments:f/u in 2 wks, cbc, cmp, [id number] at f/u. [facility]03-22-2022 Hospital Discharge instructions Follow Up Care 07/11/2021 14:05:16 With:Senthil Caldera Address: [address] [phone] Fax Business (1) When: Unknown Comments:echo and bailee carballoi will call Dr. Tabor. f/u with me in 2 wks plan AC. Cbc, cmp, ceapet/ct prior to f/u. [facility] Future Appointments Appointment Date:07/18/2021 12:00:00 PM Scheduled Provider:Senthil Caldera DO Location:FT.ONCOLOGY Appointment Type:ONC Office Visit [facility] (FT) [facility] [place] Evaluation + Plan note Future Appointments Appointment Date:08/08/2021 10:00:00 AM Scheduled Provider: [facility] Type:US Breast (FT) Appointment Date:08/09/2021 10:30:00 AM Scheduled Provider: Location:[facility] Appointment Type:Surgical PAT FT Appointment Date:08/10/2021 12:30:00 PM Scheduled Provider:Senthil Caldera DO [facility] Type:ONC Office Visit 15 (FT) Appointment Date:08/17/2021 08:00:00 AM Scheduled Provider: Location:[facility] Appointment Type:Surgery FT Appointment Date:08/22/2021 10:20:00 AM Scheduled Provider:Gavino TABOR MD Location:[facility] Appointment Type:GS Post Op 15 Future Scheduled Tests Laboratory* CA 27 29 08/09/21 * CBC w/ Auto Diff 08/09/21 * CBC w/ Auto Diff 07/26/21 * CEA 07/26/21 * Comprehensive Metabolic Panel 08/09/21 * Comprehensive Metabolic Panel 07/26/21 Radiology* US Perc Biopsy Lymph Node 08/08/21 [facility] Future Appointments Appointment Date:08/10/2021 12:30:00 PM Scheduled Provider:Senthil Caldera DO Location:.ONCOLOGY Appointment Type:ONC Office Visit 15 (FT) Diagnostic Tests Pending * CA 27 29 08/07/21 Future Scheduled Tests Laboratory* CBC w/ Auto Diff 07/26/21 * CEA 07/26/21 * Comprehensive Metabolic Panel 07/26/21 [facility] Future Appointments Appointment Date:08/10/2021 12:30:00 PM Scheduled Provider:Senthil Caldera DO Location:FT.ONCOLOGY Appointment Type:ONC Office Visit 15 (FT) Future Scheduled Tests Laboratory* CBC w/ Auto Diff 07/26/21 * CEA 07/26/21 * Comprehensive Metabolic Panel 07/26/21 [facility] Future Appointments Appointment Date:09/07/2021 12:30:00 PM Scheduled Provider:Senthil Caldera DO Location:.ONCOLOGY Appointment Type:ONC Office Visit 15 (FT) Future Scheduled Tests Laboratory* CBC w/ Auto Diff 08/24/21 * CEA 08/24/21 * Comprehensive Metabolic Panel 08/24/21 [facility] Future Appointments Appointment Date:08/21/2021 02:00:00 PM Scheduled Provider: Location:.ONCOLOGY Appointment Type:ONC Patient Education - 1hr (FT) Appointment Date:09/07/2021 12:30:00 PM Scheduled Provider:Senthil Caldera DO Location:.ONCOLOGY Appointment Type:ONC Office Visit 15 (FT) Future Scheduled Tests Laboratory* CBC w/ Auto Diff 09/07/21 * CEA 09/07/21 * Comprehensive Metabolic Panel 09/07/21 [facility] Future Appointments Appointment Date:09/07/2021 12:30:00 PM Scheduled Provider:Senthil Caldera DO Location:.ONCOLOGY Appointment Type:ONC Office Visit 15 (FT) [facility] Future Appointments Appointment Date:10/05/2021 01:30:00 PM Scheduled Provider:Senthil Caldera DO Location:.ONCOLOGY Appointment Type:ONC Office Visit 15 (FT) Future Scheduled Tests Laboratory* CA 27 29 10/08/21 * CBC w/ Auto Diff 10/08/21 * Comprehensive Metabolic Panel 10/08/21 [facility] Future Appointments Appointment Date:10/05/2021 01:30:00 PM Scheduled Provider:Senthil Caldera DO Location:.ONCOLOGY Appointment Type:ONC Office Visit 15 (FT) Diagnostic Tests Pending * CA 27 29 10/02/21 [facility] Future Appointments Appointment Date:11/02/2021 01:45:00 PM Scheduled Provider:Senthil Caldera DO Location:.ONCOLOGY Appointment Type:ONC Office Visit 15 (FT) Future Scheduled Tests Laboratory* CA 27 29 11/02/21 * CBC w/ Auto Diff 11/02/21 * Comprehensive Metabolic Panel 11/02/21 [facility] Future Appointments Appointment Date:11/02/2021 11:15:00 AM Scheduled Provider:Nohemi Garland Location:FT.ONCOLOGY Appointment Type:ONC Office Visit 15 (FT) Diagnostic Tests Pending * CA 27 29 11/01/21 [facility] Future Appointments Appointment Date:11/30/2021 01:15:00 PM Scheduled Provider:Senthil Caldera DO Location:FT.ONCOLOGY Appointment Type:ONC Office Visit 15 (FT) Future Scheduled Tests Laboratory* CBC w/ Auto Diff 12/03/21 * Comprehensive Metabolic Panel 12/03/21 [facility] Future Appointments Appointment Date:11/30/2021 01:15:00 PM Scheduled Provider:Senthil Caldera DO Location:FT.ONCOLOGY Appointment Type:ONC Office Visit 15 (FT) [facility] Future Appointments Appointment Date:12/21/2021 01:15:00 PM Scheduled Provider:Senthil Caldera DO Location:FT.ONCOLOGY Appointment Type:ONC Office Visit 15 (FT) Future Scheduled Tests Laboratory* CBC w/ Auto Diff 12/21/21 * Comprehensive Metabolic Panel 12/21/21 [facility] Future Appointments Appointment [...] Panel 01/18/22 * Comprehensive Metabolic Panel 01/25/22 [facility] Future Appointments Appointment [...] Panel 01/18/22 * Comprehensive Metabolic Panel 01/25/22 [facility] Future Appointments Appointment [...] Panel 02/06/22 * Comprehensive Metabolic Panel 02/13/22 [facility] Future Appointments Appointment Date:03/28/2022 02:15:00 PM Scheduled Provider:Senthil Caldera DO Location:FT.ONCOLOGY Appointment Type:ONC Office Visit 15 (FT) Future Scheduled Tests Laboratory* CBC w/ Auto Diff 03/08/22 * CBC w/ Auto Diff 04/05/22 * Comprehensive Metabolic Panel 03/08/22 * Comprehensive Metabolic Panel 04/05/22 [facility] Future Appointments Appointment Date:06/06/2022 01:15:00 PM Scheduled Provider:Senthil Caldera DO Location:FT.ONCOLOGY Appointment Type:ONC Office Visit 15 (FT) [facility] Future Appointments Appointment Date:08/01/2022 02:00:00 PM Scheduled Provider:Senthil Caldera DO Location:FT.ONCOLOGY Appointment Type:ONC Office Visit 15 (FT) Future Scheduled Tests Laboratory* CBC w/ Auto Diff 06/06/22 * Comprehensive Metabolic Panel 06/06/22 [facility] Future Appointments Appointment Date:08/01/2022 02:00:00 PM Scheduled Provider:Senthil Caldera DO Location:FT.ONCOLOGY Appointment Type:ONC Office Visit 15 (FT) Diagnostic Tests Pending * CA 27 29 07/09/22 Future Scheduled Tests Laboratory* CA 27 29 07/31/22 * CBC w/ Auto Diff 07/31/22 * Comprehensive Metabolic Panel 07/31/22 [facility] Future Appointments Appointment Date:08/01/2022 02:00:00 PM Scheduled Provider:Senthil Caldera DO Location:.ONCOLOGY Appointment Type:ONC Office Visit 15 (FT) Diagnostic Tests Pending * CA 27 29 07/30/22 [facility] Future Appointments Appointment [...] Transferrin 08/29/22 * Vitamin B12 Level 08/29/22 [facility] Future Appointments Appointment Date:09/27/2022 01:45:00 PM Scheduled Provider:Nohemi Garland Location:FT.ONCOLOGY Appointment Type:ONC Office Visit 30 (FT) Diagnostic Tests Pending * CA 27 29 09/25/22 [facility] Future Appointments Appointment Date:11/22/2022 02:15:00 PM Scheduled Provider:Senthil Caldera DO Location:.ONCOLOGY Appointment Type:ONC Office Visit 15 (FT) Future Scheduled Tests Laboratory* CA 27 29 10/25/22 * CA 27 29 11/22/22 * CBC w/ Auto Diff 10/25/22 * CBC w/ Auto Diff 11/22/22 * Comprehensive Metabolic Panel 10/25/22 * Comprehensive Metabolic Panel 11/22/22 [facility] Future Appointments Appointment Date:12/26/2022 02:45:00 PM Scheduled Provider:Senthil Caldera DO Location:.ONCOLOGY Appointment Type:ONC Office Visit 15 (FT) Future Scheduled Tests Laboratory* CA 27 29 10/25/22 * CA 27 29 11/22/22 * CBC w/ Auto Diff 10/25/22 * CBC w/ Auto Diff 11/22/22 * Comprehensive Metabolic Panel 10/25/22 * Comprehensive Metabolic Panel 11/22/22 [facility] Evaluation + Plan note Future [...] Panel 04/01/23 * Comprehensive Metabolic Panel 05/02/23 [facility] Future Appointments Appointment Date:06/12/2023 10:30:00 AM Scheduled Provider:Senthil Caldera DO Location:FTONCOLOGY Appointment Type:ONC Office Visit 30 (FT) Diagnostic [...] Panel 04/01/23 * Comprehensive Metabolic Panel 05/02/23 [facility] Future Appointments Appointment [...] Transferrin 09/12/23 * Vitamin B12 Level 09/12/23 [facility] Future Appointments Appointment Date:01/09/2024 10:00:00 AM Scheduled Provider:Senthil Caldera DO Location:FT.ONCOLOGY Appointment Type:ONC Office Visit 30 (FT) Diagnostic Tests Pending * CA 27 29 09/12/23 * Erythropoietin Level 09/12/23 * CBC w/ Auto Diff 11/12/23 * Comprehensive Metabolic Panel 11/12/23 * CA 27 29 11/12/23 * CBC w/ Auto Diff 12/26/23 * Comprehensive Metabolic Panel 12/26/23 * CA 27 29 12/26/23 [facility] noteNo assessment information available [facility] Work Phone: Hospital course Narrative No data available for this section [facility] [place] Hospital Discharge instructions No data available for this section [facility] [place] Progress note No data available for this section [facility] Summary Purpose Family History No Family History Records Found No data available for this section No data available for this section No data available for this section No Family History Records Found No data available for this section No Family History Records FoundNo Family History Records FoundNo Family History Records FoundNo Family History Records FoundNo Family History Records FoundNo Family History Records FoundNo Family History Records FoundNo Family History Records FoundNo Family History Records FoundNo Family History Records FoundNo Family History Records FoundNo Family History Records [...] section and content) DATE CREATED AUTHOR 09/08/2021 [facility] DATE CREATED AUTHOR AUTHOR'S ORGANIZ ATION 09/11/2023 [facility] DATE CREATED AUTHOR AUTHOR'S ORGANIZ ATION 09/14/2023 [facility] DATE CREATED AUTHOR AUTHOR'S ORGANIZ ATION 09/15/2023 [facility] DATE CREATED AUTHOR AUTHOR'S ORGANIZ ATION 09/30/2023 [facility] Care Team (unrecognized sect ion and content) Heel Slugger Relationship Specialty Start Date End Date Rickey Askew MD [address] [place] [address] PCP - Devoted 06/20/22 Rickey Askew MD [address] [place] [address] PCP - General Family Medicine 09/19/22 Team [...] BE BASED ON THE PRIMARY CLINICAL RECORDS. [facility] [employer], [facility]. provides no warranty or guarantee of the accuracy or completeness of information in this document.
[2023-10-02 08:00] LABS: Basophils Absolute Auto 0.1 10^3/uL (0.0-0.1); Basophils Percent Auto 1.9 % (0.2-2.0); Eosinophils Absolute Auto 0.2 10^3/uL (0.0-0.7); Eosinophils Percent Auto 3.7 % (0.9-7.0); Hemoglobin 10.2 g/dL (12.0-16.0); Immature Granulocytes Abs Auto 0.02 10^3/uL (0.00-0.03); Immature Granulocytes Pct Auto 0.5 % (0.0-0.5); Lymphocytes Absolute Auto 1.5 10^3/uL (1.2-3.8); Lymphocytes Percent Auto 35.7 % (20.5-60.0); Mean Corpuscular HGB Conc 31.9 g/dL (29.9-35.2); Mean Corpuscular Hemoglobin 32.6 pg (26.7-34.0); Mean Corpuscular Volume 102.2 fL (81.0-99.0); Mean Platelet Volume 9.1 fL (9.5-13.5); Monocytes Absolute Auto 0.3 10^3/uL (0.3-0.8); Monocytes Percent Auto 6.3 % (1.7-12.0); Neutrophils Absolute Auto 2.2 10^3/uL (1.4-6.5); Neutrophils Percent Auto 51.9 % (43.0-75.0); Platelet Count 171 10^3/uL (150-450); Red Blood Count 3.13 10^6/uL (4.20-5.40); Red Cell Distribution Width 13.3 % (11.0-15.0); White Blood Count 4.3 10^3/uL (4.0-11.0)
[2023-10-02 09:25] LABS: Alanine Aminotransferase 21 U/L (14-59); Albumin Globulin Ratio 0.7; Albumin Level 2.8 g/dL (3.4-5.0); Alkaline Phosphatase 123 U/L (46-116); Anion Gap 12.9; Aspartate Amino Transferase 17 U/L (15-37); BUN Creatinine Ratio 27.7; Bilirubin Total 0.3 mg/dL (0.2-1.0); Calcium 8.9 mg/dL (8.5-10.1); Carbon Dioxide 23.9 mmol/L (21.0-32.0); Chloride 109 mmol/L (98-107); Estimated GFR (African America 42 (>=60); Estimated GFR (Non-African Ame 34 (>=60); Globulin 3.8 g/dL; Glucose 140 mg/dL (74-106); Potassium 4.8 mmol/L (3.5-5.1); Sodium 141 mmol/L (136-145); Total Protein 6.6 g/dL (6.4-8.2)
== END 2023-10-02 03:32 | disposition home or self-care (01) ==
LOC: LAB 03:31
PROVIDERS: PCP Family Medicine; Visit Provider Family Medicine
DX: Z51.81 Encounter for therapeutic drug level monitoring (principal); Z85.3 Personal history of malignant neoplasm of breast
CPT/HCPCS: 36415; 80053; 85025

== ENCOUNTER 2023-10-30 06:49 | Outpatient (REF) | payer OTHER, SELFPAY ==
[2023-10-30 09:33] LABS: Basophils Absolute Auto 0.1 10^3/uL (0.0-0.1); Basophils Percent Auto 2.2 % (0.2-2.0); Eosinophils Absolute Auto 0.2 10^3/uL (0.0-0.7); Eosinophils Percent Auto 3.8 % (0.9-7.0); Hematocrit 30.3 % (36.0-48.0); Hemoglobin 9.9 g/dL (12.0-16.0); Immature Granulocytes Abs Auto 0.03 10^3/uL (0.00-0.03); Immature Granulocytes Pct Auto 0.7 % (0.0-0.5); Lymphocytes Absolute Auto 1.5 10^3/uL (1.2-3.8); Lymphocytes Percent Auto 32.5 % (20.5-60.0); Mean Corpuscular HGB Conc 32.7 g/dL (29.9-35.2); Mean Corpuscular Hemoglobin 33.7 pg (26.7-34.0); Mean Corpuscular Volume 103.1 fL (81.0-99.0); Mean Platelet Volume 9.4 fL (9.5-13.5); Monocytes Absolute Auto 0.3 10^3/uL (0.3-0.8); Monocytes Percent Auto 5.6 % (1.7-12.0); Neutrophils Absolute Auto 2.5 10^3/uL (1.4-6.5); Neutrophils Percent Auto 55.2 % (43.0-75.0); Platelet Count 162 10^3/uL (150-450); Red Blood Count 2.94 10^6/uL (4.20-5.40); Red Cell Distribution Width 13.1 % (11.0-15.0); White Blood Count 4.5 10^3/uL (4.0-11.0)
[2023-10-30 09:51] LABS: Alanine Aminotransferase 17 U/L (14-59); Albumin Globulin Ratio 0.8; Albumin Level 2.7 g/dL (3.4-5.0); Alkaline Phosphatase 115 U/L (46-116); Anion Gap 13.8; Aspartate Amino Transferase 14 U/L (15-37); BUN Creatinine Ratio 26.6; Bilirubin Total 0.4 mg/dL (0.2-1.0); Calcium 8.5 mg/dL (8.5-10.1); Carbon Dioxide 22.9 mmol/L (21.0-32.0); Chloride 108 mmol/L (98-107); Estimated GFR (African America 45 (>=60); Estimated GFR (Non-African Ame 37 (>=60); Globulin 3.3 g/dL; Glucose 106 mg/dL (74-106); Potassium 4.7 mmol/L (3.5-5.1); Sodium 140 mmol/L (136-145)
== END 2023-10-30 06:50 | disposition home or self-care (01) ==
LOC: LAB 06:49
PROVIDERS: PCP Family Medicine; Visit Provider Family Medicine
DX: C50.919 Malignant neoplasm of unspecified site of unspecified female breast (principal); Z51.81 Encounter for therapeutic drug level monitoring; Z79.899 Other long term (current) drug therapy
CPT/HCPCS: 36415; 80053; 85025; 86300

== ENCOUNTER 2023-11-25 11:06 | Outpatient (REF) | payer OTHER, MEDICAID, SELFPAY ==
--- OUTSIDE RECORDS SUMMARY | 2023-11-25 11:25 | XMS_ITS | CCD ---
Author Organization [facility] Inform ion [facility] Care Team Providers Care Flight Attendant Inflight Services Name Role Phone Rickey Askew Primary Care Physician Eva Beard Unavailable Unavailable Rickey Askew MD Unavailable Rickey Askew MD Primary Care Provider DO Senthil Caldera II Attending Provider MD Mary Rodriguez Primary Care Provider MD Mary Rodriguez Primary Care Provider [phone] DO Senthil Caldera II Attending Provider Verenice MAZA, Senthil Zapata Attending Unavaila Mary Us Primary Care Unavailable Verneice MAZA, Senthil Zapata Admitting Unavaila Mary Us Primary Care Unavailable Verenice MAZA, Senthil Zapata Admitting Unavaila ble Verenice II, Senthil Zapata Attending Unavaila ble Verenice, Senthil Attending Unavailable Verenice, Senthil Attending Unavailable Verenice, Senthil Attending Unavailable Verenice, Senthil Admitting Unavailable Nohemy COMBAT SYSTEMS OPERATOR- Lorie Moreland Attending Unavaila Sammy Azul Attending Unavailable PILAR, Sammy Attending Unavailable PILAR, Sammy Attending Unavailable Zaheer Sloan Admitting Unavailable Zaheer Sloan Attending Unavailable Wyatt Murray Attending Unavailable Mariia LOPEZ Admitting Unavailable Gavino Lugo Consulting Unavailable Georgina, DO Gavino Alfonso Consulting Unavailable MARCEL ALVAREZ Consulting Unavailable Georgina, Gavino Alfonso Consulting Unavailable Lugo, Gavino T Consulting Unavailable Lugo, Gavino T Consulting Unavailable Lugo, Gavino T Consulting Unavailable Lugo, Gavino T Consulting Unavailable Lugo, Gavino T Consulting Unavailable Lugo, Gavino T Consulting Unavailable Lugo, Gavino T Consulting Unavailable Gavino Lugo Consulting Unavailable David Tong Attending Unavailable Jeffery Murphy Attending Unavailable Senthil Caldera Attending Unavailable Senthil Caldera Attending Unavailable Allergies Allergy Classification Reported Allergen(s) Allergy Type Date of Onset Reaction(s) Facility Bee/Wasp/Ant Venom (1 source) Bee/Wasp/Ant venom; Translations: [Bee Stings] Substance Allergy [facility] Repository Penicillins (antibiotic) (1 source) Penicillins; Translations: [penicillins] Drug Allergy [facility] Repository Sulfonamides (antibiotic) (1 source) Sulfonamides (Antibiotic); Translations: [sulfa drugs] Drug Allergy [facility] Repository (20 sources) Bee/Wasp/Ant venom Drug allergy Dyspnea (finding) [facility] (20 sources) Penicillins; Translations: [penicillins] Drug allergy 2 Dyspnea (finding), Shortness of breath, Unknown [facility] (20 sources) Sulfonamides (Antibiotic); Translations: [sulfa drugs] Drug allergy Dyspnea (finding) [facility] (3 sources) Penicillin G Drug Allergy [...] day(s), # 28 cap(s), Refills(s) 0, Pharmacy: [facility] #37, 167.6, cm, 12/19/22 20:43:00 EDT, [...] Daily, # 30 tab(s), Refills(s) 11, Pharmacy: [facility], 167.6, cm, 06/12/23 11:02:00 EST, Height/Length Dosing, 90.7, kg, 06/12/23 11:02:00 EST, Weight Dosing Start Date: 06/13/23 Status: Ordered Fish Oils (20 sources) Start: 03-14-2022 take 1 capsule by mouth once daily [...] Nausea, # 30 tab(s), Refills(s) 3, Pharmacy: [facility] #37, 162.5, cm, 08/10/21 12:38:00 EDT, [...] # 42 tab(s), Refills(s) 12, Pharmacy: [id number], 167.6, cm, 05/01/23 14:05:00 EST, Height/Length Dosing, [...] Daily, # 30 tab(s), Refills(s) 11, Pharmacy: [email or web address], 162, cm, 09/08/22 15:14:00 EDT, Height/Length Dosing, 96.4, kg, 09/27/22 13:43:00 EDT, Weight Dosing Start Date: 09/27/22 Status: Ordered Vitamin D3 2000 intl units oral tablet (9 sources) Start: 12-14-2022 take 1 tablet by mouth once daily Vitamin D3 2000 intl units oral tablet 50 mcg = 1 tab(s), Oral, Daily, # 90 tab(s), Refills(s) 4, Pharmacy: [email or web address], 167, cm, 11/01/22 20:02:00 EDT, Height/Length [...] daily, # 7 cap(s), Refills(s) 0, Pharmacy: [email or web address], 167, cm, 11/01/22 20:02:00 EDT, Height/Length Dosing, 90.3, kg, 11/01/22 20:02:00 EDT, Weight Dosing Start Date: 11/04/22 Status: Ordered Start: 11-04-2022 ergocalciferol 50,000 intl units Cap 50,000 International_Unit = 1 cap(s), Oral, q7day, # 7 cap(s), Refills(s) 0, Pharmacy: [email or web address], 167, cm, 11/01/22 20:02:00 EDT, Height/Length [...] current use of drug therapy; Translations: [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 tobacco 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) drug therapy] Onset: 11-02-2022 Episodic Other [...] Test Name Value Interpretation Reference Range Facility Laboratory Outside Office Co jordi 10-03-2023 Laboratory Outside Office Copy [id number]#1.00TIFF Normal [facility] Laboratory Outside Office Copy [id number]#1.00TIFF Normal [facility] Physician Orderon 09-30-2023 Physician Order [id number]#1.00TIFF Normal [facility] CA 27 29on 09-13-2023 Cancer Ag 27-29 Qn 20.1 unit/mL Invalid Interpretation Code 0.0-38.6 [facility] Comment on above: Result Comment: [facility] Message [employer] Immunochemiluminometric Methodology (ICMA) Values obtained with different assay methods or kits cannot be used interchangeably. Results cannot be interpreted as absolute evidence of the presence or absence of malignant disease. Performed at: [address] [id number] PhD [place] Avelar Performed By: #### 1 [id number] #### [facility] Laboratory [address] [place] [address] Erythropoiet Lvlon 4 Erythropoietin (EPO) Qn 16.8 mIU/mL Invalid Interpretation Code 2.6-18.5 [facility] Comment on above: Result Comment: [employer] DxI 800 Immunoassay System Values obtained with different assay methods or kits cannot be used interchangeably. Results cannot be interpreted as absolute evidence of the presence or absence of malignant disease. Performed at: [address] [id number] PhD [place] Avelar Performed By: #### 1 [id number] #### [facility] [address] [place] [address] Outside Radiologyon 09-13-19 24 Outside Radiology [id number]#1.00TIFF Normal [facility] CBC w/ Auto Diffon 4 Basophils/100 WBC (Bld) 1.1 % Normal 0.0-2.0 [facility] Comment on above: Performed By: #### 2 [id number] #### [facility] [address] [place] [address] Basophils/Leukocytes Auto (Bld) [Pure # fraction] 0.0 E9/L Normal 0.0-0.2 [facility] Comment on above: Performed By: #### 2 [id number] #### [facility] [address] [place] [address] Eosinophils (Bld) [#/Vol] 0.2 E9/L Normal 0.0-0.5 [facility] Comment on above: Performed By: #### 2 [id number] #### [facility] [address] [place] [address] Eosinophils/100 WBC (Bld) 4.3 % Normal 0.0-8.0 [facility] Comment on above: Performed By: #### 2 [id number] #### [facility] [address] [place] [address] Erythrocyte distribution width (RBC) [Ratio] 14.6 % High 10.9-14.2 [facility] Comment on above: Performed By: #### 2 733925 #### [facility] [address] [place] [address] Hematocrit (Bld) [Volume fraction] 35.9 % Normal 34.0-46.0 [facility] Comment on above: Performed By: #### 2 249060 #### [facility] [address] [place] [address] Hemoglobin (Bld) [Mass/Vol] 11.7 g/dL Low 12.0-16.0 [facility] Comment on above: Performed By: #### 2 [id number] #### [facility] [address] [place] [address] Lymphocytes (Bld) [#/Vol] 1.3 E9/L Normal 1.0-4.0 [facility] Comment on above: Performed By: #### 2 206101 #### [facility] [address] [place] [address] Lymphocytes/100 WBC (Bld) 29.3 % Normal 14.0-50.0 [facility] Comment on above: Performed By: #### 2 254681 #### [facility] [address] [place] [address] MCH (RBC) [Entitic mass] 33.9 pg Normal 27.0-34.0 [facility] Comment on above: Performed By: #### 2 331125 #### [facility] [address] [place] [address] MCHC (RBC) [Mass/Vol] 32.7 g/dL Normal 31.4-36.0 [facility] Comment on above: Performed By: #### 2 830711 #### [facility] [address] [place] [address] MCV (RBC) [Entitic vol] 103.7 fL High 80.0-100.0 [facility] Comment on above: Performed By: #### 2 013477 #### [facility] [address] [place] [address] Monocytes (Bld) [#/Vol] 0.2 E9/L Normal 0.2-1.0 [facility] Comment on above: Performed By: #### 2 904689 #### [facility] [address] [place] [address] Neutrophils (Bld) [#/Vol] 2.7 E9/L Normal 2.0-7.5 [facility] Comment on above: Performed By: #### 2 514765 #### [facility] [address] [place] [address] Neutrophils/100 WBC (Bld) 60.4 % Normal 36.0-75.0 [facility] Comment on above: Performed By: #### 2 070398 #### [facility] [address] [place] [address] Platelet mean volume (Bld) [Entitic vol] 6.8 fL Normal 6.4-10.8 [facility] Comment on above: Performed By: #### 2 465961 #### [facility] [address] [place] [address] Platelets (Bld) [#/Vol] 245.0 E9/L Normal 150. 0-500. 0 [facility] Comment on above: Performed By: #### 2 483322 #### [facility] [address] [place] [address] RBC (Bld) [#/Vol] 3.5 E12/L Low 4.3-5.9 [facility] Comment on above: Performed By: #### 2 695040 #### [facility] [address] [place] [address] WBC corrected for nucl RBC Auto (Bld) [#/Vol] 4.5 E9/L Normal 4.0-11.0 [facility] Comment on above: Performed By: #### 2 438806 #### [facility] [address] [place] [address] CHEMISTRYOrdered By: SYSTEM SYSTEM on 09-12-2023 Albumin [...] 09-12-2023 Albumin [Mass/Vol] 3.8 g/dL Normal 3.3-5.0 [facility] Comment on above: Performed By: #### 2 [id number] #### [facility] [address] [place] [address] Albumin/Globulin (S) [Mass conc ratio] 1.2 Normal 1.1-2.2 [facility] Comment on above: Performed By: #### 2 509288 #### [facility] [address] [place] [address] ALP [Catalytic activity/Vol] 119 Int._Unit/L High 21-98 [facility] Comment on above: Performed By: #### 2 428535 #### [facility] [address] [place] [address] ALT No additional P-5'-P [Catalytic activity/Vol] 11 Int._Unit/L Normal 6-46 [facility] Comment on above: Performed By: #### 2 [id number] #### [facility] [address] [place] [address] Anion gap [Moles/Vol] 13 mmol/L Normal 6-16 [facility] Comment on above: Performed By: #### 2 328952 #### [facility] [address] [place] [address] AST [Catalytic activity/Vol] 12 Int._Unit/L Normal 5-43 [facility] Comment on above: Performed By: #### 2 050423 #### [facility] [address] [place] [address] Bilirubin [Mass/Vol] 0.3 mg/dL Normal 0.0-1.1 [facility] Comment on above: Performed By: #### 2 209991 #### [facility] [address] [place] [address] Calcium [Mass/Vol] 9.1 mg/dL Normal 8.9-11.1 [facility] Comment on above: Performed By: #### 2 746896 #### [facility] [address] [place] [address] Chloride [Moles/Vol] 111 mmol/L Normal 101-111 [facility] Comment on above: Performed By: #### 2 826657 #### [facility] [address] [place] [address] CO2 [Moles/Vol] 22 mmol/L Normal 21-31 [facility] Comment on above: Performed By: #### 2 465029 #### [facility] [address] [place] [address] Creatinine [Mass/Vol] 1.9 mg/dL High 0.5-1.3 [facility] Comment on above: Performed By: #### 2 906151 #### [facility] [address] [place] [address] Globulin (S) [Mass/Vol] 3.1 g/dL Normal 1.4-4.0 [facility] Comment on above: Performed By: #### 2 792018 #### [facility] [address] [place] [address] Glucose [Mass/Vol] 197 mg/dL Normal 55-199 [facility] Comment on above: Performed By: #### 2 500254 #### [facility] [address] [place] [address] Potassium [Moles/Vol] 4.8 mmol/L Normal 3.5-5.3 [facility] Comment on above: Performed By: #### 2 217768 #### [facility] [address] [place] [address] Protein [Mass/Vol] 6.9 g/dL Normal 6.0-7.8 [facility] Comment on above: Performed By: #### 2 743032 #### [facility] [address] [place] [address] Sodium [Moles/Vol] 141 mmol/L Normal 135-145 [facility] Comment on above: Performed By: #### 2 231883 #### [facility] [address] [place] [address] Urea nitrogen [Mass/Vol] 44 mg/dL High 5-21 [facility] Comment on above: Performed By: #### 2 839324 #### [facility] [address] [place] [address] Urea nitrogen/Creatinine [Mass ratio] 23 No Units High 10-20 [facility] Comment on above: Performed By: #### 2 001750 #### [facility] [address] [place] [address] Consent for Treatmenton 08-21 Consent for Treatment [id number]#1.00TIFF Normal [facility] Ferritinon 09-12-2023 Ferritin [Mass/Vol] 193 ng/mL Normal 11-307 [facility] Comment on above: Performed By: #### 2 757845 #### [facility] [address] [place] [address] Folateon 09-12-2023 Folate [Mass/Vol] ng/mL Normal >=6.7 [facility] Comment on above: Performed By: #### 2 812925 #### [facility] [address] [place] [address] HEMATOLOGYOrdered By: SYSTEM SYSTEM on 09-12-2023 Basophils/100 [...] 09-12-2023 Iron [Mass/Vol] 81 microgram/dL Normal 35-153 [facility] Comment on above: Performed By: #### 2 616328 #### [facility] [address] [place] [address] Iron Saturationon 09-12-2023 Iron binding capacity [Mass/Vol] 277 microgram/dL Normal 250-400 [facility] Comment on above: Performed By: #### 2 182876 #### [facility] [address] [place] [address] Iron saturation [Mass fraction] 29 % Normal 20-50 [facility] Comment on above: Performed By: #### 2 233883 #### [facility] [address] [place] [address] Oncology Progress Noteon Oncology Progress Note Chief [...] cm in length. ER greater than 95, RI greater than 95. Her2 1+ (this is [...] injections 01/30/23 she spent some time in [facility] maybe last month. They didnt have a bed afer her last hospitalization (for uti) a few weeks ago and so upon discharge went to [facility]. Her friends are concerned she will not be safe if she goes home. she seems to have a bad memory. her is also in [facility] continues kisquali, despite our meticulous calender she seems to have trouble remembering to taek this when she was at home. She insists she is getting better and wants to go home. 05/01/23 she is in [facility]. she is convinced she will be able to be independent again. She is not walking even with a walker. continues kisquali. anemi (more content not included)... Normal [facility] Physician Orderon 09-12-2023 Physician Order [id number]#1.00TIFF Normal [facility] Physician Order [id number]#1.00TIFF Normal [facility] Physician Order [id number]#1.00TIFF Normal [facility] Transferrinon 09-12-2023 Transferrin [Mass/Vol] 198 mg/dL Low 200-370 [facility] Comment on above: Performed By: #### 2 [id number] #### [facility] [address] [place] [address] Vit B12on 09-12-2023 Cobalamin (Vitamin B12) [Mass/Vol] 524 pg/mL Normal 50-1500 [facility] Comment on above: Performed By: #### 2 165970 #### [facility] [address] [place] [address] eGFRon 09-12-2023 eGFR 27 mL/min/1.73 m2 Low >=59 [facility] Comment on above: Order Comment: Order added by Discern Expert. Performed By: #### 1 [id number] #### [facility] [address] [place] [address] Lab Reportson 09-09-2023 Lab Reports [id number]#1.00TIFF Normal [facility] Glucose Glucometer (BldC) [M ass/Vol]Ordered By: Senthil Caldera on 08-30-2023 Glucose [Mass/Vol] 127 mg/dL [facility] Comment on above: Random Glucose Refer ence Range is dependent on time and content of last meal. Glucose of more than 200 mg/dL in a nonstressed, ambulatory subject supports the diagnosis of Diabetes Mellitus. Glucose Poct Glucometerson 0 08-30-2023 Glucose [Mass/Vol] 127 mg/dL Normal [facility] Comment on above: Result Comment: [place] Glucose Reference Range is dependent on time and content of last meal. Glucose of more than 200 mg/dL in a nonstressed, ambulatory subject supports the diagnosis of Diabetes Mellitus. PERFORMED BY: [place] [address] PATHOLOGIST RN DOCUMENT IMPROVEMENT SPECIALIST JERICA JO M.D. Performed By: #### G LULS #### Point of Care testing , PET tumor subq tx strat sb-m ton 08-30-2023 PET tumor subq tx strat sb-mt [facility] [place] [address] Nuclear Medicine Report Signed Patient: Marlen Staley MR#: [id number] 65 : 1950 Acct:[id number] Age/Sex: 73 / F ADM Date: 08/30/23 Loc: Room: Type: [facility] Attending Dr: Senthil Caldera II DO Copies [...] cavity is present. Although distribution may be community health representative of asymmetric physiologic uptake, if there [...] li (more content not included)... Normal [facility] Physician Orderon 06-27-2023 Physician Order [id number]#1.00TIFF Normal [facility] Consent for Treatmenton 05-24 Consent for Treatment [id number]#1.00TIFF Normal [facility] ED Pat Eduon 06-12-2023 ED [...] Keep items that you use often in rqjl-vx-oresi places. Lower the shelves around your home [...] the way. ? Do not use floor monegasque or wax that makes floors slippery. What [...] Control and Prevention, STEADI: www.cdc.gov ? National Tracy on Aging: www.derrick.nih.gov Contact a doctor if: [...] provider. Document Revised: 01/08/2022 Document Reviewed: 11/09/2020 [employer] Patient Education ? 2022 [employer]. Nutrition High-Protein and H (more content not included)... Normal [facility] ED [facility] Fall Prevention in the Home, Adult Falls [...] Keep items that you use often in spzi-ly-uhmmt places. Lower the shelves around your home [...] the way. ? Do not use floor monegasque or wax that makes floors slippery. What [...] Control and Prevention, STEADI: www.cdc.gov ? National Tracy on Aging: www.derrick.nih.gov Contact a doctor if: [...] provider. Document Revised: 01/08/2022 Document Reviewed: 11/09/2020 [employer] Patient Education ? 2022 Dopios. Obstetrics and Gynecology Br (more content not included)... Normal [facility] Caregiving Fall Prevention in the Home, Adult [...] Keep items that you use often in ovir-jo-msyzy places. Lower the shelves around your home [...] the way. ? Do not use floor monegasque or wax that makes floors slippery. What [...] Control and Prevention, STEADI: www.cdc.gov ? National Tracy on Aging: www.derrick.nih.gov Contact a doctor if: [...] provider. Document Revised: 01/08/2022 Document Reviewed: 11/09/2020 [employer] Patient Education ? 2022 [employer] [facility] Oncology Progress Noteon Oncology Progress Note [...] cm in length. ER greater than 95, RI greater than 95. Her2 1+ (this is [...] injections 01/30/23 she spent some time in [facility] maybe last month. They didnt have a bed afer her last hospitalization (for uti) a few weeks ago and so upon discharge went to [facility]. Her friends are concerned she will not be safe if she goes home. she seems to have a bad memory. her is also in [facility] continues kisquali, despite our meticulous calender she seems to have trouble remembering to taek this when she was at home. She insists she is getting better and wants to go home. 05/01/23 she is in [facility]. she is convinced she will be able to be independent again. She is not walking even with a walker. continues kisquali. anemic on recent labs. 06/12/23 Continues kisquali and arimidex. recent PET/CT. notes interval enlargement of the right breast mass with development of 2 nodules with increased hypermetab (more content not included)... Normal [facility] Physician Orderon 06-12-2023 Physician Order [id number]#1.00TIFF Normal [facility] Outside Labson 06-06-2023 Outside Labs [id number]#1.00TIFF Normal [facility] Outside Radiologyon 06-06-19 Outside Radiology [id number]#1.00TIFF Normal [facility] ALL CBC WITH AUTO DIFFon BASOPHILS ABSOLUTE AUTO 0.1 N [facility] Basophils/100 WBC (Bld) 1.2 % 0.2 - 2.0 % [facility] Eosinophils/100 WBC (Bld) 3.8 % 0.9 - 7.0 % [facility] Erythrocyte distribution width (RBC) [Ratio] 13.4 % 11.0 - 15.0 % [facility] Hematocrit (Bld) [Volume fraction] 29.4 % Low 36.0 - 48.0 % [facility] Hemoglobin (Bld) [Mass/Vol] 9.4 g/dL Low 12.0 - 16.0 g/dL [facility] IMMATURE GRANULOCYTES ABS AUTO 0.02 [facility] Immature granulocytes/100 WBC (Bld) 0.4 % 0.0 - 0.5 % [facility] Interpretation and review of laboratory results Abnormal [facility] LYMPHOCYTES ABSOLUTE AUTO 1.8 [facility] Lymphocytes/100 WBC (Bld) 35.5 % 20.5 - 60.0 % [facility] MCH (RBC) [Entitic mass] 33.5 pg 26.7 - 34.0 pg [facility] MCHC (RBC) [Mass/Vol] 32.0 g/dL 29.9 - 35.2 g/dL [facility] MCV (RBC) [Entitic vol] 104.6 fL High 81.0 - 99.0 fL [facility] MONOCYTES ABSOLUTE AUTO 0.4 N [facility] Monocytes/100 WBC (Bld) 8.2 % 1.7 - 12.0 % [facility] NEUTROPHILS ABSOLUTE AUTO 2.5 [facility] Neutrophils/100 WBC (Bld) 50.9 % 43.0 - 75.0 % [facility] Platelet mean volume (Bld) [Entitic vol] 9.2 fL Low 9.5 - 13.5 fL [facility] [facility] EO # 0.2 [facility] TBH PLT 182 [facility] RBC 2.81 Low [facility] WBC 5.0 [facility] CLINISYNC [facility] GLUCOSE POCT GLUCOMETERSon 0 05-31-2023 Glucose [Mass/Vol] 110 mg/dL [facility] Comment on above: Random Glucose Refer ence Range is dependent on time and content of last meal. Glucose of more than 200 mg/dL in a nonstressed, ambulatory subject supports the diagnosis of Diabetes Mellitus. [facility] Glucose Glucometer (dC) [M ass/Vol]Ordered By: Senthil Caldera on 05-31-2023 Glucose [Mass/Vol] 110 mg/dL [facility] Comment on above: Random Glucose Refer ence Range is dependent on time and content of last meal. Glucose of more than 200 mg/dL in a nonstressed, ambulatory subject supports the diagnosis of Diabetes Mellitus. Glucose Poct Glucometerson 0 05-31-2023 Glucose [Mass/Vol] 110 mg/dL Normal [facility] Comment on above: Result Comment: [facility] Glucose Reference Range is dependent on time and content of last meal. Glucose of more than 200 mg/dL in a nonstressed, ambulatory subject supports the diagnosis of Diabetes Mellitus. PERFORMED BY: [facility] [address] [place] [address] PATHOLOGIST RN DOCUMENT IMPROVEMENT SPECIALIST JERICA JO M.D. Performed By: #### G LULS #### Point of Care testing , PET tumor subq tx strat sb-m ton 05-31-2023 PET tumor subq tx strat sb-mt [facility] Main [place] [address] [place] [address] Nuclear Medicine Report Signed Patient: Marlen Staley MR#: [id number] 65 : 1950 Acct:[id number] Age/Sex: 72 / F ADM Date: 05/31/23 Loc: Room: Type: [facility] Attending Dr: Senthil Caldera II DO Copies [...] cavity is present. Although distribution may be community health representative of asymmetric physiologic uptake, if there [...] ADRE (more content not included)... Normal [facility] ALL CBC WITH AUTO DIFFon BASOPHILS ABSOLUTE AUTO 0.1 N [facility] Basophils/100 WBC (Bld) 2.0 % 0.2 - 2.0 % [facility] Eosinophils/100 WBC (Bld) 3.3 % 0.9 - 7.0 % [facility] Erythrocyte distribution width (RBC) [Ratio] 13.2 % 11.0 - 15.0 % [facility] Hematocrit (Bld) [Volume fraction] 28.4 % Low 36.0 - 48.0 % [facility] Hemoglobin (Bld) [Mass/Vol] 9.2 g/dL Low 12.0 - 16.0 g/dL [facility] IMMATURE GRANULOCYTES ABS AUTO 0.02 [facility] Immature granulocytes/100 WBC (Bld) 0.4 % 0.0 - 0.5 % [facility] Interpretation and review of laboratory results Abnormal [facility] LYMPHOCYTES ABSOLUTE AUTO 2.0 [facility] Lymphocytes/100 WBC (Bld) 43.8 % 20.5 - 60.0 % [facility] MCH (RBC) [Entitic mass] 33.5 pg 26.7 - 34.0 pg [facility] MCHC (RBC) [Mass/Vol] 32.4 g/dL 29.9 - 35.2 g/dL [facility] MCV (RBC) [Entitic vol] 103.3 fL High 81.0 - 99.0 fL [facility] MONOCYTES ABSOLUTE AUTO 0.3 N [facility] Monocytes/100 WBC (Bld) 6.9 % 1.7 - 12.0 % [facility] NEUTROPHILS ABSOLUTE AUTO 2.0 [facility] Neutrophils/100 WBC (Bld) 43.6 % 43.0 - 75.0 % [facility] Platelet mean volume (Bld) [Entitic vol] 9.0 fL Low 9.5 - 13.5 fL [facility] TBH EO # 0.2 [facility] TBH PLT 226 [facility] TB RBC 2.75 Low [facility] TBH WBC 4.5 [facility] Insurance Correspondenceon 0 05-23-2023 Insurance Correspondence [id number]#1.00TIFF [facility] Oncology Noteon 05-20-2023 Oncology Note Per phone call from Claudette/[facility] r-[phone] - she wondered if we had the [...] it but doesn't have any to take. [facility] Comment on above: Result Comment: Elec tronically Signed By: Jane FARMER, Yolande Grande.br\Date and Time Signed: 05/20/23 14:48 EST Physician Orderon 05-15-2023 Physician Order [id number]#1.00TIFF [facility] Comment on above: Other Comment: wrong patient Physician Orderon 05-14-2023 Physician Order [id number]#1.00TIFF [facility] Outside [facility]son 05-02-2023 Outside Labs [id number]#1.00TIFF [facility] Outside Labs [id number]#1.00TIFF [facility] Physician Orderon 05-02-2023 Physician Order [id number]#1.00TIFF [facility] Physician Order [id number]#1.00TIFF [facility] Consent for Treatmenton 04-22 Consent for Treatment [id number]#1.00TIFF [facility] Oncology Noteon 05-01-2023 Oncology Note Oncology Care Uziel nixon Office Visit/Treatment Note Current Patient Status/Reason: Pt in with transportation mechanic per pt request for scheduled clinic visit. Dr. Caldera saw pt. Treatment Plan: PET at [facility] soon, since pt is corrina lift. CBC, CMP, iron studies, Folate, epo, [id number] before f/u (send orders to [facility]). Kisqali 200 mg 3 PO daily 3 weeks on 1 week off. Follow-Up Appointment Info/Referrals: F/U in 6 weeks. Resources Offered: Pt voiced no questions or concerns to me when I asked. I instructed that [facility] would call for PET, and lab orders would be faxed to [facility]. Pt voiced understanding of same. Pt also to continue Anastrozole PO daily. [facility] Comment on [...] cm in length. ER greater than 95, RI greater than 95. Her2 1+ (this is negative) PETCT showed large breast mass, multiple large axillary masses. A glenoid hypermetabolic lesion R side and a mid thoracic vertebral body area of FDG uptake. 4/21/22 She has been on arimidex for two [...] injections 01/30/23 she spent some time in [facility] maybe last month. They didnt have a bed afer her last hospitalization (for uti) a few weeks ago and so upon discharge went to [facility]. Her friends are concerned she will not be safe if she goes home. she seems to have a bad memory. her is also in [facility] continues [facility], despite our meticulous calender she seems to have trouble remembering to taek this when she was at home. She insists she is getting better and wants to go home. 05/01/23 she is in [facility]. she is convinced she will be able to be independent again. She is not walking even with a walker. continues kisquali. anemic on recent labs. Review of Systems Constitutional: Negative. Eye: Negative. Ear/Nose/Mouth/Throat: Negative. Respiratory: Negative. Cardiovascular: Negative. Gastrointes (more content not included)... Normal [facility] Outside Labson 05-01-2023 Outside Labs [id number]#1.00TIFF Normal [facility] ONC - Otheron 02-07-2023 ONC - Other [id number]#1.00TIFF [facility] Physician Orderon 02-05-2023 Physician Order [id number]#1.00TIFF [facility] Consent for Treatmenton 01-20 Consent for Treatment [id number]#1.00TIFF [facility] Oncology Noteon 01-30-2023 Oncology Note Oncology Care Coordi nator Office Visit/Treatment Note Current Patient Status/Reason: Patient here with friend, Karolina for scheduled clinic visit. I accompanied Dr. Caldera and medical student Nj in room. Patient is currently at [facility]. Labs done at [facility] 01/28/2023 reviewed. Disease process and treatment options discussed. Patient informs she like [facility] and having people around to socialize with. Physical exam done. Treatment Plan: continue Kisqali, monthly labs, PET 04/24/2023 Follow-Up Appointment Info/Referrals: after PET Resources Offered: Orders for [facility] regarding monthly labs filled out. Patient denies any questions/concerns at this time. [facility] Comment on above: Result Comment: Elec tronically Signed By: Jane FARMER, Yolande Houston\.johnnie\Date and Time Signed: 01/30/23 17:07 EDT Oncology Progress Noteon Oncology Progress Note Patient: MARLEN STAELY Age: 72 years Sex: Female : 1950 [...] cm in length. ER greater than 95, RI greater than 95. Her2 1+ (this is [...] injections 01/30/23 she spent some time in [facility] maybe last month. They didnt have a bed afer her last hospitalization (for uti) a few weeks ago and so upon discharge went to [facility]. Her freinds are concerned she will not be safe if she goes home. she seems to have a bad memory. her is also in [facility] continues kisquali, despite our meticulous calender [...] Negative. Neur (more content not included)... Normal [facility] Outside [facility] 10-10-2023 Outside Labs [id number]#1.00TIF F Normal [facility] Outside Labs [id number]#1.00TIF F Normal [facility] [id number]#1.00TIFF Normal [facility] Coding Queryon 01-16-2023 Coding Query - From: Torres FARMER, Monika To: Zaheer Sloan DO; Sent: 12/25/2022 14:39:14 [...] stage IIIb From: Zaheer Sloan DO To: Torres FARMER, Monika; Sent: 01/16/2023 12:27:31 EDT Subject: RE: Coding Query Caller Name: MARLEN STALEY; Caller Number: H [facility] ONC - Otheron 01-16-2023 ONC - Other [id number]#1.00CD:1 [facility] ONC - Otheron 01-09-2023 ONC - Other [id number]#1.00CD:1 [facility] Discharge Instructionson Discharge Instructions [id number]#1.00CD:1 [facility] Transfer Documentson 023 Transfer Documents [id number]#1.00CD:1 27 [facility] CHEMISTRYOrdered By: Lab ROP User on 12-23-2022 Glucose [Mass/Vol] 111 mg/dL High 55 - 99 mg/dL [facility] Subsection Comment on above: Result Comment: Navin BOSE POC Device SN [id number] Invalid Interpretation Code [facility] Subsection POC User ID [id number] Invalid Interpretation Code [facility] Subsection POC Username JUAN HENNESSY Invalid Interpretation Code [facility] Subsection Capillary Glucose POCon Glucose [Mass/Vol] 111 mg/dL High 55-99 [facility] Comment on above: Result Comment: Navin uriostegui RN/ Performed By: #### 2 [id number] #### [facility] [address] [place] [address] Discharge Note-Nursingon Discharge Note-Nursing MARLEN STALEY :1950 Visit Date:12/20/2022 Inpatient Discharge Instructions Your Care Team Admitting Physician - LUCHO HANKS, Donfo Reason for Your Visit Fall Your Diagnosis [...] Test Results None Pharmacy Information [facility] Discharge Instructions Please return to ER if symptoms change or worsen. Previously Scheduled Follow-Up Appointments Saturday 2:45 PM EDT With: Senthil Caldera DO Where: [facility] New Follow Up Appointments after Discharge Follow Up with Azar HANKS, Rickey Lynn, NIKOLE When: Where: [address] [place] [address]- Medications What How Much When Why Instructions [...] your results (more content not included)... Normal [facility] C Urineon 12-22-2022 Bacteria identified [...] Locations R1: This test was performed at: [facility], [address] [place] [address], [address]- , [place], [facility] Comment on above: Performed By: #### 1 [id number], [id number] ####[facility] [address] [place] [address] CHEMISTRYOrdered By: Lab ROP User on 12-22-2022 Glucose [Mass/Vol] 155 mg/dL High 55 - 99 mg/dL [facility] Subsection Comment on above: Result Comment: Navin BOSE POC Device SN [id number] Invalid Interpretation Code [facility] P[facility] Subsection POC User ID [id number] Invalid Interpretation Code [facility] Subsection POC Username DARRYN SANTOS Invalid Interpretation Code [facility] Subsection Glucose [Mass/Vol] 129 mg/dL High 55 - 99 mg/dL [facility] Subsection Comment on above: Result Comment: Christine donna Meter POC Device SN [id number] Invalid Interpretation Code [facility] POC Subsection POC User ID [id number] Invalid Interpretation Code [facility] Subsection POC Username ROOPA LIM Invalid Interpretation Code [facility] Subsection Capillary Glucose POCon Glucose [Mass/Vol] 155 mg/dL High 55-99 [facility] Comment on above: Result Comment: Navin BOSE Performed By: #### 2 187760, 0869282, 3838292, [id number], [id number] #### [facility] [address] [place] [address] Glucose [Mass/Vol] 129 mg/dL High 55-99 [facility] Comment on above: Result Comment: Christine donna Meter Performed By: #### 2 254528, 6828346, 2983290, [id number], [id number] #### [facility] [address] [place] [address] Glucose [Mass/Vol] 158 mg/dL High 55-99 [facility] Comment on above: Result Comment: Christine donna Meter Performed By: #### 2 [id number] #### [facility] [address] [place] [address] Glucose [Mass/Vol] 144 mg/dL High 55-99 [facility] Comment on above: Result Comment: Navin BOSE Performed By: #### 2 [id number] #### [facility] [address] [place] [address] 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 Note - Attila e Manageron 12-22-2022 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 Note - Commissary Production Supervisor CRM spoke with patient. Patient was previous rounded on by Dr Sloan today. Spouse is also patient and is in other bed in room. Patient is alert and oriented. Whiteboard updated and CRM contact # provided. Discussed with patient that [facility] does not have any beds and referral was made to [facility] but they do not take [employer]. Referral was sent to [facility] for both her and her spouse and they have accepted and started precert. Patient becomes upset and states that is to far away and to far for her Family to visit. Discussed only other closer facility is [facility] that takes her and spouse insurance. Patient states she will moose her insurance man and her friend Karolina and discuss with them. Okay for CRM to call Karolina and daughter and update them as well. She does not want CRM to cancel [facility] referral yet a she needs to talk to Karolina. CRM called both Karolina and bryan Cervantes, no answer and left CRM contact number and VM on dc plans. 1406- Bryan Cervantes called CRM back and is agreeable to [...] spouse as well and he is agreeable. [facility] Comment on [...] 12/21/22 12/20/22 Total Summary Intake mL -- ,272.3 1,003.28 Output mL -- -- -- Fluid Balance -- ,272.3 1,003.28 Intake (2) Oral Intake mL -- -- 200 Sodium Chloride 0.9% intravenous solution 1,000 mL mL -- ,272.3 803.28 Total -- ,272.3 1,003.28 Output (0) Counts (1) Urine Count [...] mg/dL High (12/22/22 07:31:00) POC Device SN: [id number] (12/22/22 07:31:00) POC User ID: [id number] (12/22/22 07:31:00) POC Username: RHODESJANELLE (12/22/22 07:31:00) Problem List/Past Medical History Ongoing [...] Oral, Once a day (at bedtime), PRN [place] 5/325 Tab, 1 tab(s), Oral, q4hr, PRN [...] (at bedtim (more content not included)... Normal [facility] Comment on above: Result Comment: Elec tronically Signed By: Nathalia LUDWIG, Zaheer Bain\.br\Date and Time Signed: 12/22/22 09:47 EDT Auto Diffon 12-21-2022 Basophils/100 WBC (Bld) 2.6 % High 0.0-2.0 F [facility] Comment on above: Order Comment: Order Added by Discern Expert. Performed By: #### 2 679668, 7557744, 2754686, [id number], [id number] #### [facility] [address] [place] [address] Basophils/Leukocytes Auto (Bld) [Pure # fraction] 0.1 E9/L Normal 0.0-0.2 [facility] Comment on above: Order Comment: Order Added by Discern Expert. Performed By: #### 2 452054, 0374445, 5393648, [id number], [id number] #### [facility] [address] [place] [address] Eosinophils/100 WBC (Bld) 2.5 % Normal 0.0-8.0 [facility] Comment on above: Order Comment: Order Added by Discern Expert. Performed By: #### 2 428047, 2003013, 8608975, [id number], [id number] #### [facility] [address] [place] [address] Eosinophils/Leukocytes Auto (Bld) [Pure # fraction] 0.1 E9/L Normal 0.0-0.5 [facility] Comment on above: Order Comment: Order Added by Faviola Expert. Performed By: #### 2 144835, 3378910, 5846709, 816071049, 87077266 #### [facility] [address] [place] [address] Lymphocytes/100 WBC (Bld) 42.1 % Normal 14.0-50.0 [facility] Comment on above: Order Comment: Order Added by Discern Expert. Performed By: #### 2 847512, 0781642, 8215405, [id number], [id number] #### [facility] [address] [place] [address] Lymphocytes/Leukocytes Auto (Bld) [Pure # fraction] 1.4 E9/L Normal 1.0-4.0 [facility] Comment on above: Order Comment: Order Added by Discern Expert. Performed By: #### 2 740608, 7745101, 8982683, 220490366, 68504013 #### [facility] [address] [place] [address] Monocytes/100 WBC (Bld) 13.6 % Normal 4.0-14.0 [facility] Comment on above: Order Comment: Order Added by Discern Expert. Performed By: #### 2 196683, 4634860, 8678749, 809598971, 83992650 #### [facility] [address] [place] [address] Monocytes/Leukocytes Auto (Bld) [Pure # fraction] 0.4 E9/L Normal 0.2-1.0 [facility] Comment on above: Order Comment: Order Added by Discern Expert. Performed By: #### 2 181966, 5800266, 9558064, [id number], [id number] #### [facility] [address] [place] [address] Neutrophils/100 WBC (Bld) 39.2 % Normal 36.0-75.0 [facility] Comment on above: Order Comment: Order Added by Discern Expert. Performed By: #### 2 999411, 1690616, 5478295, 696340121, 77029362 #### [facility] [address] [place] [address] Neutrophils/Leukocytes Auto (Bld) [Pure # fraction] 1.3 E9/L Low 2.0-7.5 [facility] Comment on above: Order Comment: Order Added by Discern Expert. Performed By: #### 2 292208, 8538499, 9198584, 975986554, 40284422 #### [facility] [address] [place] [address] BMPon 12-21-2022 Anion gap [Moles/Vol] 11 mmol/L Normal 6-16 [facility] Comment on above: Performed By: #### 2 444609, 9163793, 1318843, 234621073, 00638442 #### [facility] [address] [place] [address] Calcium [Mass/Vol] 8.9 mg/dL Normal 8.9-11.1 [facility] Comment on above: Performed By: #### 2 586877, 6905828, 2015235, 856040134, 29816724 #### [facility] [address] [place] [address] Chloride [Moles/Vol] 112 mmol/L High 101-111 [facility] Comment on above: Performed By: #### 2 627041, 2759298, 2303587, 777148793, 75823337 #### [facility] [address] [place] [address] CO2 [Moles/Vol] 22 mmol/L Normal 21-31 [facility] Comment on above: Performed By: #### 2 694718, 7779613, 8354465, 889456024, 08302769 #### [facility] [address] [place] [address] Creatinine [Mass/Vol] 1.4 mg/dL High 0.5-1.3 [facility] Comment on above: Performed By: #### 2 129903, 0677780, 6988010, 719076594, 09087543 #### [facility] [address] [place] [address] Glucose [Mass/Vol] 102 mg/dL Normal 55-199 [facility] Comment on above: Result Comment: If t his glucose result represents a fasting glucose, interpretation should refer to the following reference range: 55-99 mg/dL Performed By: #### 2 281200, 1340931, 2075906, 228968053, 06108390 #### [facility] [address] [place] [address] Potassium [Moles/Vol] 4.0 mmol/L Normal 3.5-5.3 [facility] Comment on above: Performed By: #### 2 611071, 3618799, 7647567, 868624912, 55435505 #### [facility] [address] [place] [address] Sodium [Moles/Vol] 141 mmol/L Normal 135-145 [facility] Comment on above: Performed By: #### 2 446148, 4522728, 3300004, 264792569, 59733686 #### [facility] [address] [place] [address] Urea nitrogen [Mass/Vol] 36 mg/dL High 5-21 [facility] Comment on above: Performed By: #### 2 487199, 2932148, 2338601, 574663413, 37204480 #### [facility] [address] [place] [address] Urea nitrogen/Creatinine [Mass ratio] 26 No Units High 10-20 [facility] Comment on above: Performed By: #### 2 321745, 8717090, 4773259, 893175283, 01459628 #### [facility] [address] [place] [address] C Urineon 12-21-2022 Bacteria identified Cx Nom [...] Locations R1: This test was performed at: [facility], [address] [place] [address], [address] , , [facility] Comment on above: Performed By: #### 2 618357, 1843247, 5566453, [id number], 11872354 #### [facility] [address] [place] [address] CBC w/ Auto Diffon 3 Erythrocyte distribution width (RBC) [Ratio] 18.4 % High 10.9-14.2 [facility] Comment on above: Performed By: #### 2 999692, 8108786, 6541767, 777680889, 52819985 #### [facility] [address] [place] [address] Hematocrit (Bld) [Volume fraction] 26.8 % Low 34.0-46.0 [facility] Comment on above: Performed By: #### 2 895704, 8979744, 7621637, 869690714, 79535807 #### [facility] [address] [place] [address] Hemoglobin (Bld) [Mass/Vol] 9.3 g/dL Low 12.0-16.0 [facility] Comment on above: Performed By: #### 2 909477, 1241769, 6220870, 397679905, 03745744 #### [facility] [address] [place] [address] MCH (RBC) [Entitic mass] 34.3 pg High 27.0-34.0 [facility] Comment on above: Performed By: #### 2 532909, 5978013, 6562667, 756322130, 07991804 #### [facility] [address] [place] [address] MCHC (RBC) [Mass/Vol] 34.8 g/dL Normal 31.4-36.0 [facility] Comment on above: Performed By: #### 2 424743, 3899261, 1080945, 450671584, 72807172 #### [facility] [address] [place] [address] MCV (RBC) [Entitic vol] 98.6 fL Normal 80.0-100.0 [facility] Comment on above: Performed By: #### 2 441729, 9899598, 5553561, 998068756, 77172035 #### [facility] [address] [place] [address] Platelet mean volume (Bld) [Entitic vol] 6.8 fL Normal 6.4-10.8 [facility] Comment on above: Performed By: #### 2 526698, 9901978, 7154370, 660576859, 31001030 #### [facility] [address] [place] [address] Platelets (Bld) [#/Vol] 201.0 E9/L Normal 150. 0-500. 0 [facility] Comment on above: Performed By: #### 2 395826, 2518335, 0860176, 599634079, 97384476 #### [facility] [address] [place] [address] RBC (Bld) [#/Vol] 2.7 E12/L Low 4.3-5.9 [facility] Comment on above: Performed By: #### 2 234842, 5087362, 7128060, 764404183, 63578574 #### [facility] [address] [place] [address] WBC corrected for nucl RBC Auto (Bld) [#/Vol] 3.3 E9/L Low 4.0-11.0 [facility] Comment on above: Performed By: #### 2 208767, 3684364, 2697953, 205526497, 02145047 #### [facility] [address] [place] [address] CHEMISTRYOrdered By: SYSTEM SYSTEM on 12-21-2022 Anion [...] 40 mL/min/1.73 m2 Low >=59mL/min /1.73 m2 [facility] Chem S Glucose [Mass/Vol] 102 mg/dL Normal [...] (Bld) [Mass fraction] 7.1 % High <=5.9% [facility] ChemAutoSS Capillary Glucose POCon Glucose [Mass/Vol] 127 mg/dL High 55-99 [facility] Comment on above: Result Comment: Navin BOSE Performed By: #### 2 [id number] #### [facility] [address] [place] [address] Glucose [Mass/Vol] 160 mg/dL High 55-99 [facility] Comment on above: Result Comment: Navin uriostegui RN/ Performed By: #### 2 [id number] ####[facility] [address] [place] [address] Glucose [Mass/Vol] 132 mg/dL High 55-99 [facility] Comment on above: Result Comment: Navin uriostegui RN/ Performed By: #### 2 736732, 3475618, 8712778, 241472913, 42205945 #### [facility] [address] [place] [address] Glucose [Mass/Vol] 115 mg/dL High 55-99 [facility] Comment on above: Result Comment: Navin BOSE Performed By: #### 2 [id number] #### [facility] [address] [place] [address] HEMATOLOGYOrdered By: SYSTEM SYSTEM on 12-21-2022 Basophils/100 WBC (Bld) 2.6 % High 0.0 - 2.0 % [facility] HemeAutoSS Basophils/Leukocytes Auto (Bld) [Pure # fraction] 0.1 E9/L Normal 0.0 - 0.2 E9/L [facility] HemeAutoSS Eosinophils/100 WBC (Bld) 2.5 % Normal 0.0 - 8.0 % [facility] HemeAutoSS Eosinophils/Leukocytes Auto (Bld) [Pure # fraction] 0.1 E9/L Normal 0.0 - 0.5 E9/L [facility] HemeAutoSS Lymphocytes/100 WBC (Bld) 42.1 % Normal [...] Low 4.0 - 11.0 E9/L [facility] HemeAutoSS [id number] 12-21-2022 HbA1c (Bld) [Mass fraction] 7.1 % High <=5.9 [facility] Comment on above: Performed By: #### 2 165482, 3969006, 0878401, 751166362, 76753740 #### [facility] [address] [place] [address] Insurance Correspondence Off iceon 12-21-2022 Insurance Correspondence Office [id number]#1.00CD:12 7 Normal [facility] 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 Note - Rafat n 12-21-2022 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 [...] with self care tasks and transfers. Normal [facility] 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 Note - Soc ial Workeron 12-21-2022 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 Note - Package Sealer This SW responded to a consult on [...] SW will remain available as needed. Normal [facility] Message from Medicareon Message from Medicare [id number]#[id number]:12 7 Normal [facility] Progress Note-Physicianon Progress Note-Physician Assessment/Plan 1. UTI (urinary tract infection) (N39.0: Urinary tract infection, site not specified) ? Urine culture positive for E. coli, pansensitive ? We will continue Keflex as patient tolerated in the past ? We will continue to monitor for signs of improvement Ordered: Initial Hospital Care/Day Moderate 55 Minutes 62763 Sbsq Hospital Care/Day Straight Fwd 25 Minutes [id number] 2. Age-related cognitive decline (R41.81: Age-related cognitive [...] 06:07:00) Lymph Auto: 42.1 % (12/21/22 06:07:00) [place] Auto: 13.6 % (12/21/22 06:07:00) Eos Auto: 2.5 % (12/21/22 06:07:00) Basophil Auto: 2.6 % High (12/21/22 06:07:00) Neutro Absolute: 1.3 E9/L Low (12/21/22 06:07:00) Lymph Absolute: 1.4 E9/L (12/21/22 06:07:00) [place] Absolute: 0.4 E9/L (12/21/22 06:07:00) Eos Absolute: [...] gm/dL (12/20 (more content not included)... Normal [facility] Comment on above: Result Comment: Elec tronically Signed By: Zaheer Sloan DO\Date and Time Signed: 12/21/22 14:15 EDT eGFRon 12-21-2022 GFR/1.73 sq M.predicted among non-blacks MDRD (S/P/Bld) [Vol rate/Area] 40 mL/min/1.73 m2 Low >=59 [facility] Comment on above: Order Comment: Order added by Discern Expert. Result Comment: Photolithographer aubrey kidney disease could be indicated at eGFR's of less than 60 mL/min/1.73m2. Kidney failure is indicated at less than 15 mL/min/1.73m2. Performed By: #### 2 960602, 5303763, 6726832, 957676798, 24213849 #### [facility] [address] [place] [address] Auto Diffon 12-20-2022 Basophils/100 WBC (Bld) 3.5 % High 0.0-2.0 [facility] Comment on above: Order Comment: Order Added by Discern Expert. Performed By: #### 2 700565, 9948009, 8468244, 950366929, 99828868 #### [facility] [address] [place] [address] Basophils/Leukocytes Auto (Bld) [Pure # fraction] 0.1 E9/L Normal 0.0-0.2 [facility] Comment on above: Order Comment: Order Added by Discern Expert. Performed By: #### 2 151545, 9801404, 5207479, 648427759, 13592440 #### [facility] [address] [place] [address] Eosinophils/100 WBC (Bld) 1.3 % Normal 0.0-8.0 [facility] Comment on above: Order Comment: Order Added by Faviola Expert. Performed By: #### 2 754265, 7151327, 9212771, 493818378, 12479391 #### [facility] [address] [place] [address] Eosinophils/Leukocytes Auto (Bld) [Pure # fraction] 0.0 E9/L Normal 0.0-0.5 [facility] Comment on above: Order Comment: Order Added by Discern Expert. Performed By: #### 2 172002, 7265683, 3476998, 053602089, 79138400 #### [facility] [address] [place] [address] Lymphocytes/100 WBC (Bld) 28.4 % Normal 14.0-50.0 [facility] Comment on above: Order Comment: Order Added by Discern Expert. Performed By: #### 2 016936, 3296506, 0157154, 678012499, 17516619 #### [facility] [address] [place] [address] Lymphocytes/Leukocytes Auto (Bld) [Pure # fraction] 1.1 E9/L Normal 1.0-4.0 [facility] Comment on above: Order Comment: Order Added by Discern Expert. Performed By: #### 2 954664, 2948636, 3146764, 418098929, 81907780 #### [facility] [address] [place] [address] Monocytes/100 WBC (Bld) 12.5 % Normal 4.0-14.0 [facility] Comment on above: Order Comment: Order Added by Discern Expert. Performed By: #### 2 682259, 4447942, 9671661, 208868770, 97947555 #### [facility] [address] [place] [address] Monocytes/Leukocytes Auto (Bld) [Pure # fraction] 0.5 E9/L Normal 0.2-1.0 [facility] Comment on above: Order Comment: Order Added by Discern Expert. Performed By: #### 2 824411, 0069924, 2271162, 159191039, 67866258 #### [facility] [address] [place] [address] Neutrophils/100 WBC (Bld) 54.3 % Normal 36.0-75.0 [facility] Comment on above: Order Comment: Order Added by Discern Expert. Performed By: #### 2 550257, 9283392, 2905931, 430283245, 53436694 #### [facility] [address] [place] [address] Neutrophils/Leukocytes Auto (Bld) [Pure # fraction] 2.1 E9/L Normal 2.0-7.5 [facility] Comment on above: Order Comment: Order Added by Discern Expert. Performed By: #### 2 884675, 4562263, 4074865, 570489837, 74749306 #### [facility] [address] [place] [address] BMPon 12-20-2022 Creatinine [Mass/Vol] 1.3 mg/dL Normal 0.5-1.3 [facility] Comment on above: Performed By: #### 2 214903, 6551974, 1055558, 245604645, 48368362 #### [facility] [address] [place] [address] Urea nitrogen [Mass/Vol] 36 mg/dL High 5-21 [facility] Comment on above: Performed By: #### 2 839270, 2945005, 9236707, 026008463, 00573723 #### [facility] [address] [place] [address] Urea nitrogen/Creatinine [Mass ratio] 28 No Units High 10-20 [facility] Comment on above: Performed By: #### 2 180633, 8788189, 5574908, 109674841, 49202001 #### [facility] [address] [place] [address] Anion gap [Moles/Vol] 13 mmol/L Normal 6-16 [facility] Comment on above: Performed By: #### 2 693590, 9374952, 3068250, 186063308, 88225329 #### [facility] [address] [place] [address] Calcium [Mass/Vol] 9.6 mg/dL Normal 8.9-11.1 [facility] Comment on above: Performed By: #### 2 310666, 4555572, 3592986, 349153793, 79426901 #### [facility] [address] [place] [address] Chloride [Moles/Vol] 108 mmol/L Normal 101-111 [facility] Comment on above: Performed By: #### 2 977483, 9069310, 2454345, 692962770, 99793661 #### [facility] [address] [place] [address] CO2 [Moles/Vol] 21 mmol/L Normal 21-31 [facility] Comment on above: Performed By: #### 2 124940, 1599695, 3207415, 381888166, 08501047 #### [facility] [address] [place] [address] Glucose [Mass/Vol] 136 mg/dL Normal 55-199 [facility] Comment on above: Result Comment: If t his glucose result represents a fasting glucose, interpretation should refer to the following reference range: 55-99 mg/dL Performed By: #### 2 969542, 5762215, 9880655, 747633574, 19721622 #### [facility] [address] [place] [address] Potassium [Moles/Vol] 4.2 mmol/L Normal 3.5-5.3 [facility] Comment on above: Performed By: #### 2 308841, 8208084, 2022166, 063998610, 73765459 #### [facility] [address] [place] [address] Sodium [Moles/Vol] 138 mmol/L Normal 135-145 [facility] Comment on above: Performed By: #### 2 253322, 9364843, 9165139, 276366142, 11579971 #### [facility] [address] [place] [address] CBC w/ Auto Diffon 3 Erythrocyte distribution width (RBC) [Ratio] 19.0 % High 10.9-14.2 [facility] Comment on above: Performed By: #### 2 194604, 8392115, 0953905, 939924746, 55295773 #### [facility] [address] [place] [address] Hematocrit (Bld) [Volume fraction] 31.3 % Low 34.0-46.0 [facility] Comment on above: Performed By: #### 2 868800, 0173888, 3432803, 860729372, 39571352 #### [facility] [address] [place] [address] Hemoglobin (Bld) [Mass/Vol] 10.4 g/dL Low 12.0-16.0 [facility] Comment on above: Performed By: #### 2 830628, 7800095, 7764764, 579419794, 56090421 #### [facility] [address] [place] [address] MCH (RBC) [Entitic mass] 33.3 pg Normal 27.0-34.0 [facility] Comment on above: Performed By: #### 2 261637, 2632825, 9201853, 004867425, 60164267 #### [facility] [address] [place] [address] MCHC (RBC) [Mass/Vol] 33.3 g/dL Normal 31.4-36.0 [facility] Comment on above: Performed By: #### 2 966809, 7223777, 6315493, 193853629, 26637526 #### [facility] [address] [place] [address] MCV (RBC) [Entitic vol] 99.8 fL Normal 80.0-100.0 [facility] Comment on above: Performed By: #### 2 008402, 7810729, 5323782, 634451791, 73960824 #### [facility] [address] [place] [address] Platelet mean volume (Bld) [Entitic vol] 6.8 fL Normal 6.4-10.8 [facility] Comment on above: Performed By: #### 2 033675, 0401096, 5506757, 303942945, 35712785 #### [facility] [address] [place] [address] Platelets (Bld) [#/Vol] 212.0 E9/L Normal 150. 0-500. 0 [facility] Comment on above: Performed By: #### 2 984258, 2097057, 5640981, 262544510, 06637209 #### [facility] [address] [place] [address] RBC (Bld) [#/Vol] 3.1 E12/L Low 4.3-5.9 [facility] Comment on above: Performed By: #### 2 833647, 2335508, 7191089, 057573554, 24444941 #### [facility] [address] [place] [address] WBC corrected for nucl RBC Auto (Bld) [#/Vol] 3.9 E9/L Low 4.0-11.0 [facility] Comment on above: Performed By: #### 2 350192, 8918669, 7979403, 101725600, 18261897 #### [facility] [address] [place] [address] CHEMISTRYOrdered By: SYSTEM SYSTEM on 12-20-2022 Troponin [...] for Treatmenton 11-22 Consent for Treatment [id number]:12 7 Normal [facility] Discharge Instructionson Discharge Instructions [id number]#[id number]:1 27 Normal [facility] ED Clinical Summaryon 2022 ED Clinical Summary (Inserted Image. Belle ble to display) [place] [id number] ED Clinical Summary Person Information [facility]: [facility] Age[facility] 72 Years : 1950 Sex: Female Language: Scottish PCP: Rickey Askew MD Marital Status: Phone: [phone] MRN: Visit Id: Visit Reason: Dysuria; Weakness or fatigue; UTI Speciality: Acuity: 3 Enc Type: Inpatient Med Service: Medical Arrival: 12/20/2022 15:04:00 Discharge: LOS: 000 03:52 Checkin: 12/20/2022 15:04:00 Checkout: 12/20/2022 18:56:43 Dispo Type: Admitted as IP to this [facility] EVENTS: Event Name Event Status Request Date/Time [...] 18:40:53 Patient Care Request 12/20/2022 18:52:04 ADDRESS: [address] [place] [address] [address] [phone] PHYS DOC NOTES: MEDICAL INFORMATION: Prescriptions Given: [...] of breast cancer; 4:HTN (hypertension); 5:Hypercholesteremia Normal [facility] ED Clinical Summary (Inserted Image. Belle ble to display) [address] [address] ED Clinical Summary Person Information Name: MARLEN STALEY/Savita Age: 72 Years : 1950 Sex: Female Language: Scottish PCP: Rickey Askew MD Marital Status: Phone: [phone] MRN: Visit Id: Visit Reason: Medical problem [...] 12/20/2022 00:50:56 12/20/2022 00:50:56 12/20/2022 00:50:56 ADDRESS: [address] [place] [address] [place] [id number] PHYS DOC NOTES: MEDICAL INFORMATION: Prescriptions Given: New Medications [id number], [address] [place], [place] [id number], [phone] cephalexin (Keflex 500 mg Cap) 1 Capsules [...] EDUCATION INFORMATION: Instructions: Urinary Tract Infection, Adult, Elev-rv-Rxoh; Anemia; Dehydration, Adult, Gzdj-ew-Rwea Follow up: With: Address: When: Rickey Askew [address] [facility] [address] Business (1) In 2 days 12/21/2022 DIAGNOSIS: 1:Generalized weakness; 2:Frequent falls; 3:Anemia; 4:Dehydration; 5:Urinary tract infection Normal [facility] ED Note-Physicianon 12-21-19 ED Note-Physician Basic Information Time Seen: Pedro Nava DO 12/20/2022 15:31 Chief Complaint [facility] dys[facility] and weakness. Pt states she [...] daughter wants her to go into a intermediate as they can no longer be cared [...] D3 20 (more content not included)... Normal [facility] Comment on above: Result Comment: Elec tronically Signed By: Pedro Nava DO\.br\Date and Time Signed: 12/20/22 19:22 EDT ED Note-Physician Basic Information Time Seen: David Tong MD 12/19/2022 20:40 Chief Complaint says she has been getting increasingly weaker. on wait list for [facility] History of Present Illness 72-year-old female presents [...] to be in assisted living at the [facility]. She does have a history of diabetes. [...] day(s), # 28 cap(s), Refills(s) 0, Pharmacy: [email or web address], 167.6, cm, 12/19/22 20:43:00 EDT, Height/Length [...] Askew In 2 days 12/21/2022 EDT [address] [place], [place] [address] (1) Additional Instructions: Patient Education Urinary Tract Infection, Adult, Ajzy-wl-Awqf Anemia Dehydration, Adult, Qtvv-oj-Koxb Problem List/Past Medical History Ongoing Age-related cognitive decline Axillary adenopathy Chronic edema Diabetes History of breast cancer History of healed fragility fracture HTN (hypertension) Hypercholesteremia Invasive ductal carcinoma of right breast Multiple closed fractures of pelvis with stable disruption of pelvic ring with routine healing, subsequent encounter Vitamin D deficiency Historical No qualifying data Procedure/Surgical (more content not included)... Normal [facility] Comment on above: Result Comment: Elec tronically Signed By: Ran HANKS, David\.br\Date and Time Signed: 12/20/22 00:40 EDT ED Patient Education Noteon 12-20-2022 ED Patient Education Note Normal [facility] ED Patient Education Note Hematology Anemia Anemia [...] Follow these instructions at home: ? Take aweq-nsh-tfefatq and prescription medicines only as told by [...] provider. Document Revised: 02/20/2022 Document Reviewed: 03/15/2020 [employer] Patient Education ? 2022 [employer] Nutrition Dehydration, Adult Dehydration is condition in [...] a lot. (more content not included)... Normal [facility] ED Patient Summaryon 023 ED Patient Summary (Inserted Image. Belle ble to display) [place] [id number] Patient Discharge Instructions Person Information Name: MARLEN STALEY Age: 72 Years Arrival Date: 12/20/2022 15:04:00 Discharge Diagnosis: 1:UTI (urinary tract infection); 2:Age-related cognitive decline; 3:History of breast cancer; 4:HTN (hypertension); 5:Hypercholesteremia Primary Care Physician: Rickey Askew MD Provider Information Primary Provider: Pedro Nava DO Advanced Warehouse Engineer:None The exam and treatment you received in the Emergency Department were for an urgent problem and are not intended as complete care. It is important that you follow up with a doctor, nurse practitioner, or physician?s environmental emergencies assistant for ongoing care. If your symptoms become [...] opioids can be used to help relieve yohoeimh-kt-cguhwl pain and are often prescribed following a [...] be struggling with addiction, tell your health physician assistant primary care and ask for guidance or call SAMHSA?S National Helpline at 0-653-914-KZVJ. q Source: [place] Department of Health and Human Services/Center for Diseas (more content not included)... Normal [facility] ED Patient Summary (Inserted Image. Belle ble to display) [address] [address] Patient Discharge Instructions Person Information Name: MARLEN STALEY Age: 72 Years Arrival Date: 12/19/2022 20:39:01 Discharge Diagnosis: 1:Generalized weakness; 2:Frequent falls; 3:Anemia; 4:Dehydration; 5:Urinary tract infection Primary Care Physician: Rickey Askew MD Provider Information Primary Provider: David Tong MD Advanced Warehouse Engineer:None The exam and treatment you received in the Emergency Department were for an urgent problem and are not intended as complete care. It is important that you follow up with a doctor, nurse practitioner, or physician?s environmental emergencies assistant for ongoing care. If your symptoms become [...] With: Address: When: Rickey Aske[place] [place] [address] Business (1) In 2 days 12/21/2022 In the event that this physician does not participate in your insurance network, please consult with your insurance company to find a nearby participating provider. Patient Education Materials: Urinary Tract Infection, Adult, Efda-cx-Trxo; Anemia; Dehydration, Adult, Inea-zt-Andi A MESSAGE TO ALL PATIENTS REGARDING OPIOIDS PRESCRIPTION OPIOIDS: WHAT YOU NEED TO KNOW Prescription opioids can be used to help relieve jdfayjck-dv-bxugal pain and are often prescribed following a [...] health care (more content not included)... Normal [facility] HEMATOLOGYOrdered By: SYSTEM SYSTEM on [...] 33.3 g/dL Normal 31.4 - 36.0 gm/dL [facility] HemeAutoSS MCV (RBC) [Entitic vol] 99.8 fL Normal 80.0 - 100.0 fL [facility] HemeAutoSS Platelet mean volume (Bld) [Entitic vol] 6.8 fL Normal 6.4 - 10.8 fL [facility] HemeAutoSS Platelets (Bld) [#/Vol] 212.0 E9/L Normal 150. 0 - 500.0 E9/L [facility] HemeAutoSS RBC (Bld) [#/Vol] 3.1 E12/L Low 4.3 - 5.9 E12/L [facility] HemeAutoSS WBC corrected for nucl RBC Auto (Bld) [#/Vol] 3.9 E9/L Low 4.0 - 11.0 E9/L [facility] HemeAutoSS Hep Func Panelon 12-20-2022 Bilirubin.direct [Mass/Vol] 0.1 mg/dL Normal 0.1-0.4 [facility] Comment on above: Performed By: #### 2 537352, 1878174, 0813199, 160183405, 90909924 #### [facility] [address] [place] [address] Bilirubin.indirect [Mass or moles/Vol] 0.8 mg/dL Normal 0.1-0.9 [facility] Comment on above: Performed By: #### 2 094099, 1180712, 7616558, 681309310, 10715517 #### [facility] [address] [place] [address] Albumin [Mass/Vol] 3.5 g/dL Normal 3.3-5.0 [facility] Comment on above: Performed By: #### 2 009881, 1567269, 2382446, 456429043, 59663781 #### [facility] [address] [place] [address] Albumin/Globulin (S) [Mass conc ratio] 0.9 Low 1.1-2.2 [facility] Comment on above: Performed By: #### 2 892359, 2945089, 7272949, 625281097, 99090622 #### [facility] [address] [place] [address] ALP [Catalytic activity/Vol] 101 Int._Unit/L High 21-98 [facility] Comment on above: Performed By: #### 2 111231, 1119864, 9705541, 242984705, 75681146 #### [facility] [address] [place] [address] ALT No additional P-5'-P [Catalytic activity/Vol] 20 Int._Unit/L Normal 6-46 [facility] Comment on above: Performed By: #### 2 092412, 7472743, 4837296, 378960349, 96110148 #### [facility] [address] [place] [address] AST [Catalytic activity/Vol] 18 Int._Unit/L Normal 5-43 [facility] Comment on above: Performed By: #### 2 881860, 4767223, 1678777, 342370332, 30012592 #### [facility] [address] [place] [address] Bilirubin [Mass/Vol] 0.9 mg/dL Normal 0.0-1.1 [facility] Comment on above: Performed By: #### 2 292988, 3945201, 9841687, 307938207, 07425692 #### [facility] [address] [place] [address] Globulin (S) [Mass/Vol] 3.8 g/dL Normal 1.4-4.0 [facility] Comment on above: Performed By: #### 2 404737, 5136358, 8015812, 407879757, 18624359 #### [facility] [facility] [address] [place] [address] Protein [Mass/Vol] 7.3 g/dL Normal 6.0-7.8 [facility] Comment on above: Performed By: #### 2 413977, 1041502, 8929165, 797723947, 14551630 #### [facility] [address] [place] [address] Laboratory - Microbiology an d Antimicrobial susceptibilityOrdered By: Ninfa Sawyer on 12-20-2022 Bacteria identified Cx Nom (U) 1,000 cfu/ml Mixed skin contaminants [facility] Monitor Recordon 12-20-2022 Monitor Record [id number]#1.00CD:1 27 Normal [facility] Pre-Arrival Noteon 3 Pre-Arrival Note Pre-Arrival Summary Name: UTI, ncems Current Date: 12/20/2022 15:06:09 EDT Gender: Date of : Age: Pre-Arrival Type: EMS ETA: 12/20/2022 15:31:00 EDT Primary Care Physician: Presenting Problem: Pre-Arrival User: Delia Tsai RN Referring Source: Location: [place] Completion Date/Time: 12/20/2022 15:01:00 [facility] Emergency Department Pre-Hospital Report Form ____ Vital Signs: Pre-Hospital Report: Treatment in Route: Response to Treatment: Misc. Issues: Normal [facility] Troponin 0 Hr.on 12-20-2022 Troponin I.cardiac [Mass/Vol] 9.80 pg/mL Low 10.10-27.1 0 [facility] Comment on above: Result Comment: The 95% CI (Confidence Interval) PPV (Positive Predictive Value) for myocardial infarction in females is 38 pg/mL, in males 51 pg/mL. The results should be used in conjunction with clinical conditions of myocardial infarction. (Access High Sensitivity Troponin I Instructions For Use, Gaby Marisol, November 2017) Performed By: #### 2 869441, 2917083, 4092586, [id number], 77785231 #### [facility] [address] [place] [address] Troponin 3 Hr.on 12-20-2022 Troponin I.cardiac [Mass/Vol] 10.20 pg/mL Normal 10.10-27.1 0 [facility] Comment on above: Result Comment: The 95% CI (Confidence Interval) PPV (Positive Predictive Value) for myocardial infarction in females is 38 pg/mL, in males 51 pg/mL. The results should be used in conjunction with clinical conditions of myocardial infarction. (Access High Sensitivity Troponin I Instructions For Use, Gaby Marisol, November 2017) Performed By: #### 2 406710, 3481972, 4923635, 373745090, 45753585 #### [facility] [address] [place] [address] UA With Cult Reflexon 2022 Bilirubin Ql (U) Negative Normal Negative [facility] Comment on above: Performed By: #### 1 5760774, 8277503 ####[facility] [address] [place] [address] Clarity (U) CLEAR Normal Clear [facility] Comment on above: Performed By: #### 1 8767501, 3327276 ####[facility] [address] [place] [address] Color (U) STRAW Abnormal Yellow [facility] Comment on above: Performed By: #### 1 4529752, 5036746 ####[address] [address] Epithelial cells.squamous LM.HPF (Urine sed) [#/Area] 0-2 Normal 0-2 [facility] Comment on above: Performed By: #### 1 3765507, 4707046 ####[facility] [address] [place] [address] Glucose Test strip (U) [Mass/Vol] Negative Normal Negative [facility] Comment on above: Performed By: #### 1 9894891, 2198973 ####[facility] [address] [place] [address] Hemoglobin Ql (U) TRACE Abnormal Negative [facility] Comment on above: Performed By: #### 1 2143519, 1450369 ####[facility] [place] 0[address] Ketones (U) [Mass/Vol] Negative Normal Negative [facility] Comment on above: Performed By: #### 1 3472588, 5010700 ####[address] [address] Black [place].plasma/Black Jack. RBC (Bld) [Mass ratio] 0-3 Normal 0-3 [facility] Comment on above: Performed By: #### 1 2174147, 5272495 ####[address] [address] Nitrite Ql (U) Negative Normal Negative [facility] Comment on above: Performed By: #### 1 4798502, 4765124 ####[address] [address] pH (U) 5.5 [pH] Invalid Interpretation Code 5.0-9.0 [facility] Comment on above: Performed By: #### 1 8420495, 5415716 ####[address] [address] Protein (U) [Mass/Vol] Negative Normal Negative [facility] Comment on above: Performed By: #### 1 2439310, 6912572 ####[address] [address] Specific gravity (U) [Rel density] <=1.005 Invalid Interpretation Code 1.005-1.03 0 [facility] Comment on above: Performed By: #### 1 7374486, 1012167 ####[address] [address] Type of Urine collection method Clean Catch Normal [facility] Comment on above: Performed By: #### 1 3509524, 8435405 ####[address] [address] Urobilinogen Qn (U) 0.2 {Tj'U}/dL Normal 0.0-1.0 [facility] Comment on above: Performed By: #### 1 5045684, 5106248 ####[facility] [address] [place] [address] WBC Auto Ql (U) 1+ Abnormal Negative [facility] Comment on above: Performed By: #### 1 2503905, 6993282 ####[facility] [address] [place] [address] WBC LM.HPF (Urine sed) [#/Area] 6-15 Abnormal 0-5 [facility] Comment on above: Performed By: #### 1 1001836, 9085253 ####[facility] [address] [place] [address] UA Spec Desc Catheter Normal [facility] Comment on above: Result Comment: Mini cath specimen Performed By: #### 2 006658, 4161942, 8804439, 872166287, 29571312 #### [facility] [address] [place] [address] URINALYSISOrdered By: Lisette Medina on 12-20-2022 Bilirubin [...] PM) Normal Negative [facility] UA Auto SS Black Jack.plasma/Black Jack. RBC (Bld) [Mass ratio] 0-3 /HPF Normal 0-3/HPF [facility] UA Auto SS Nitrite Ql (U) Negative (12/20/22 5:18 PM) Normal Negative [facility] UA Auto SS pH (U) 5.5 *NA* (12/20/22 5:18 PM) Invalid Interpretation Code 5.0 - 9.0 [facility] UA Auto SS Protein (U) [Mass/Vol] Negative (12/20/22 5:18 PM) Normal Negative [facility] UA Auto SS Specific gravity (U) [Rel density] <=1.005 *NA* (12/20/22 5:18 PM) Invalid Interpretation Code 1.005 - 1.030 [facility] UA Auto SS UA Spec Desc Clean Catch (12/20/22 5:18 PM) Normal [facility] UA Auto SS Urobilinogen Qn (U) 0.2294933 {Tj'U}/dL Normal 0.0 - 1.0 EU/dL [facility] UA Auto SS WBC Auto Ql (U) 1+ *ABN* (12/20/22 5:18 PM) Invalid Interpretation Code Negative [facility] UA Auto SS WBC LM.HPF (Urine sed) [#/Area] 6-15 /HPF Invalid Interpretation Code 0-5/HPF [facility] UA Auto SS XR Chest Single Viewon [...] mGy = na DAP = na Normal [facility] XR Chest Single View Exam Date/Time: 12/19/2022 [...] mGy = na DAP = na Normal [facility] eGFRon 12-20-2022 GFR/1.73 sq M.predicted among non-blacks MDRD (S/P/Bld) [Vol rate/Area] 43 mL/min/1.73 m2 Low >=59 [facility] Comment on above: Order Comment: Order added by Discern Expert. Result Comment: Photolithographer aubrey kidney disease could be indicated at eGFR's of less than 60 mL/min/1.73m2. Kidney failure is indicated at less than 15 mL/min/1.73m2. Performed By: #### 2 966690, 7144410, 0390598, 321298626, 33879167 #### [facility] [address] [place] [address] Auto Diffon 12-19-2022 Basophils/100 WBC (Bld) 0.4 % Normal 0.0-2.0 [facility] Comment on above: Order Comment: Order Added by Discern Expert. Performed By: #### 2 400183, 4757182, 8815559, 532469405, 92395950 #### [facility] [address] [place] [address] Basophils/Leukocytes Auto (Bld) [Pure # fraction] 0.0 E9/L Normal 0.0-0.2 [facility] Comment on above: Order Comment: Order Added by Discern Expert. Performed By: #### 2 929001, 4672907, 9786060, 705324812, 48350503 #### [facility] [address] [place] [address] Eosinophils/100 WBC (Bld) 1.6 % Normal 0.0-8.0 [facility] Comment on above: Order Comment: Order Added by Discern Expert. Performed By: #### 2 957742, 1022315, 1128091, 393942286, 65392162 #### [facility] [address] [place] [address] Eosinophils/Leukocytes Auto (Bld) [Pure # fraction] 0.1 E9/L Normal 0.0-0.5 [facility] Comment on above: Order Comment: Order Added by Discern Expert. Performed By: #### 2 999281, 4336448, 5504628, 071452681, 22466223 #### [facility] [address] [place] [address] Lymphocytes/100 WBC (Bld) 34.4 % Normal 14.0-50.0 [facility] Comment on above: Order Comment: Order Added by Discern Expert. Performed By: #### 2 792945, 1508689, 4235484, 690569822, 41958794 #### [facility] [address] [place] [address] Lymphocytes/Leukocytes Auto (Bld) [Pure # fraction] 1.2 E9/L Normal 1.0-4.0 [facility] Comment on above: Order Comment: Order Added by Discern Expert. Performed By: #### 2 218501, 4583093, 5699923, 534130316, 77284710 #### [facility] [address] [place] [address] Monocytes/100 WBC (Bld) 12.8 % Normal 4.0-14.0 [facility] Comment on above: Order Comment: Order Added by Discern Expert. Performed By: #### 2 064397, 3365529, 3420128, 074876033, 38383209 #### [facility] [address] [place] [address] Monocytes/Leukocytes Auto (Bld) [Pure # fraction] 0.4 E9/L Normal 0.2-1.0 [facility] Comment on above: Order Comment: Order Added by Discern Expert. Performed By: #### 2 871851, 6955138, 4095547, 557514280, 62633961 #### [facility] [address] [place] [address] Neutrophils/100 WBC (Bld) 50.8 % Normal 36.0-75.0 [facility] Comment on above: Order Comment: Order Added by Discern Expert. Performed By: #### 2 553520, 5708105, 1612172, 013788999, 27012988 #### [facility] [address] [place] [address] Neutrophils/Leukocytes Auto (Bld) [Pure # fraction] 1.7 E9/L Low 2.0-7.5 [facility] Comment on above: Order Comment: Order Added by Faviola Expert. Performed By: #### 2 364761, 8470161, 9837435, 519303496, 05919378 #### [facility] [address] [place] [address] BMPon 12-19-2022 Anion gap [Moles/Vol] 10 mmol/L Normal 6-16 [facility] Comment on above: Performed By: #### 2 356116, 0193219, 2988548, 215820233, 46278125 #### [facility] [address] [place] [address] Calcium [Mass/Vol] 9.4 mg/dL Normal 8.9-11.1 [facility] Comment on above: Performed By: #### 2 647946, 7905906, 5224053, 197140954, 71570047 #### [facility] [address] [place] [address] Chloride [Moles/Vol] 111 mmol/L Normal 101-111 [facility] Comment on above: Performed By: #### 2 476252, 9858901, 6169089, 587782658, 98583988 #### [facility] [address] [place] [address] CO2 [Moles/Vol] 25 mmol/L Normal 21-31 [facility] Comment on above: Performed By: #### 2 212419, 4559895, 0837025, 148184799, 29663362 #### [facility] [address] [place] [address] Creatinine [Mass/Vol] 1.4 mg/dL High 0.5-1.3 [facility] Comment on above: Performed By: #### 2 961594, 3294727, 4439887, 144961992, 75630775 #### [facility] [address] [place] [address] Glucose [Mass/Vol] 165 mg/dL Normal 55-199 [facility] Comment on above: Result Comment: If t his glucose result represents a fasting glucose, interpretation should refer to the following reference range: 55-99 mg/dL Performed By: #### 2 227850, 3324073, 9463633, 335858746, 93594032 #### [facility] [address] [place] [address] Potassium [Moles/Vol] 4.6 mmol/L Normal 3.5-5.3 [facility] Comment on above: Performed By: #### 2 011513, 9240871, 8401571, 494353392, 32327065 #### [facility] [address] [place] [address] Sodium [Moles/Vol] 141 mmol/L Normal 135-145 [facility] Comment on above: Performed By: #### 2 206178, 1108465, 0694063, 508538221, 84412411 #### [facility] [address] [place] [address] Urea nitrogen [Mass/Vol] 36 mg/dL High 5-21 [facility] Comment on above: Performed By: #### 2 275704, 1131818, 9341067, 559687160, 48019377 #### [facility] [address] [place] [address] Urea nitrogen/Creatinine [Mass ratio] 26 No Units High 10-20 [facility] Comment on above: Performed By: #### 2 374407, 1045536, 8474465, 461857867, 07163609 #### [facility] [address] [place] [id number] CBC w/ Auto Diffon 3 Erythrocyte distribution width (RBC) [Ratio] 18.9 % High 10.9-14.2 [facility] Comment on above: Performed By: #### 2 492888, 6259270, 6013088, 953260647, 34600489 #### [facility] [address] [place] [address] Hematocrit (Bld) [Volume fraction] 32.2 % Low 34.0-46.0 [facility] Comment on above: Performed By: #### 2 003847, 5786891, 9474357, 421791105, 28824556 #### [facility] [address] [place] [address] Hemoglobin (Bld) [Mass/Vol] 10.8 g/dL Low 12.0-16.0 [facility] Comment on above: Performed By: #### 2 689485, 2993002, 6784855, 567576458, 66672458 #### [facility] [address] [place] [address] MCH (RBC) [Entitic mass] 33.5 pg Normal 27.0-34.0 [facility] Comment on above: Performed By: #### 2 023851, 4116406, 0148147, 886500491, 58927459 #### [facility] [address] [place] [address] MCHC (RBC) [Mass/Vol] 33.4 g/dL Normal 31.4-36.0 [facility] Comment on above: Performed By: #### 2 804198, 2461370, 6220560, 907683318, 65014173 #### [facility] [address] [place] [address] MCV (RBC) [Entitic vol] 100.5 fL High 80.0-100.0 [facility] Comment on above: Performed By: #### 2 361875, 0728781, 7952019, 148435047, 99517229 #### [facility] [address] [place] [address] Platelet mean volume (Bld) [Entitic vol] 7.0 fL Normal 6.4-10.8 [facility] Comment on above: Performed By: #### 2 764116, 9068571, 0786761, 877955023, 75282575 #### [facility] [address] [place] [address] Platelets (Bld) [#/Vol] 204.0 E9/L Normal 150. 0-500. 0 [facility] Comment on above: Performed By: #### 2 301896, 2784525, 3534152, 692183637, 92193340 #### [facility] [address] [place] [address] RBC (Bld) [#/Vol] 3.2 E12/L Low 4.3-5.9 [facility] Comment on above: Performed By: #### 2 601960, 4314260, 3640373, 353080474, 72786898 #### [facility] [address] [place] [address] WBC corrected for nucl RBC Auto (Bld) [#/Vol] 3.4 E9/L Low 4.0-11.0 [facility] Comment on above: Performed By: #### 2 133257, 1894968, 4231953, 709880514, 27473241 #### [facility] [address] [place] [address] CHEMISTRYOrdered By: SYSTEM SYSTEM on 12-19-2022 Albumin [...] 40 mL/min/1.73 m2 Low >=59mL/min /1.73 m2 [facility] Chem S Globulin (S) [Mass/Vol] 3.5 g/dL [...] - 1 2.5 second(s) [facility] Auto Coag Consent for Treatmenton 11-22 Consent for Treatment [id number]#1.00CD:1 27 Normal [facility] HEMATOLOGYOrdered By: SYSTEM SYSTEM on 12-19-2022 Basophils/100 [...] 12-19-2022 Albumin [Mass/Vol] 3.5 g/dL Normal 3.3-5.0 [facility] Comment on above: Performed By: #### 2 651343, 0551345, 1710814, 969832250, 02854451 #### [facility] [address] [place] [address] Albumin/Globulin (S) [Mass conc ratio] 1.0 Low 1.1-2.2 [facility] Comment on above: Performed By: #### 2 290885, 4345439, 6390366, 564138097, 21284090 #### [facility] [address] [place] [address] ALP [Catalytic activity/Vol] 110 Int._Unit/L High 21-98 [facility] Comment on above: Performed By: #### 2 700525, 9671324, 5339050, 531114275, 05020405 #### [facility] [address] [place] [address] ALT No additional P-5'-P [Catalytic activity/Vol] 20 Int._Unit/L Normal 6-46 [facility] Comment on above: Performed By: #### 2 300965, 0659013, 6578724, 539613465, 60723979 #### [facility] [address] [place], [place] [address] AST [Catalytic activity/Vol] 19 Int._Unit/L Normal 5-43 [facility] Comment on above: Performed By: #### 2 330619, 1894962, 9594648, 654848953, 64408151 #### [facility] [address] [place] [address] Bilirubin [Mass/Vol] 0.4 mg/dL Normal 0.0-1.1 [facility] Comment on above: Performed By: #### 2 784232, 7349532, 8232150, 169006422, 22547410 #### [facility] [address] [place] [address] Bilirubin.direct [Mass/Vol] 0.1 mg/dL Normal 0.1-0.4 [facility] Comment on above: Performed By: #### 2 296923, 8701398, 5743790, 071902032, 15375164 #### [facility] [address] [place] [address] Bilirubin.indirect [Mass or moles/Vol] 0.3 mg/dL Normal 0.1-0.9 [facility] Comment on above: Performed By: #### 2 005416, 7321113, 9406439, 325207545, 75088702 #### [facility] [address] [place] [address] Globulin (S) [Mass/Vol] 3.5 g/dL Normal 1.4-4.0 [facility] Comment on above: Performed By: #### 2 101682, 1493174, 4756696, 985867713, 84009433 #### [facility] [address] [place] [address] Protein [Mass/Vol] 7.0 g/dL Normal 6.0-7.8 [facility] Comment on above: Performed By: #### 2 927858, 1532840, 7470664, 029252976, 52862389 #### [facility] [address] [place] [address] Laboratory - Microbiology an d Antimicrobial susceptibilityOrdered By: Jeaneth Morfin on 12-19-2022 Bacteria identified Cx Nom (U) >100,000 cfu/ml Gram Negative [employer] Manager species [facility] Magnesiumon 12-19-2022 Magnesium [Mass/Vol] 2.0 mg/dL Normal 1.3-2.4 [facility] Comment on above: Performed By: #### 2 505879, 8827206, 8897724, 297106811, 36185104 #### [facility] [address] [place] [address] Monitor Recordon 12-19-2022 Monitor Record [id number]#1.00CD:1 27 Normal [facility] PT & PTTon 12-19-2022 aPTT Coag (PPP) [Time] 26.7 second(s) Normal 25.1-36.5 [facility] Comment on above: Result Comment: Para meter 15 days - 4 weeks 1 - 5 months 6 - 11 months 1 - 5 years 6 - 10 years 11 - 17 years PTT Mean: 35.4 (27.6-45.6) Mean: 33.5 (24.8-40.7) Mean: 32.4 (25.1-40.7) Mean: 31.6 (24.0-39.2) Mean: 31.6 (26.9-38.7) Mean: 31.0 (24.6-38.4) Pediatric Reference ranges were obtained from a study by almas Roberto prepared from 1437 samples obtained at 7 different centers using the same coagulation reagent and instrumentation as [facility]. Currently there are no coagulation studies available worldwide for children to 14 days, and no normal ranges. Heparin therapeutic range (represented by Anti-Factor Xa activity of 0.2 - 0.4 U/mL) corresponds to PTT of 56.6 - 109.0 sec. Performed By: #### 2 076865, 6688641, 5959354, 131372389, 39312323 #### [facility] [address] [place] [address] INR Coag (PPP) [Relative time] 1.0 {INR} Invalid Interpretation Code [facility] Comment on above: Result Comment: INR results are specifically intended to assess patients stabilized on long-term Anticoagulation therapy suggested INR?s ?Less Intensive Anticoagulation? 2.0 ? 3.0 Conventional Range 3.0 ? 4.5 Performed By: #### 2 293457, 6179156, 4667231, 502908488, 38841046 #### [facility] [address] [place] [address] PT Coag (PPP) [Time] 11.5 second(s) Normal 9.4-12.5 [facility] Comment on above: Result Comment: [...] were obtained from a study by [employer]al [employer], et al. prepared from 1437 samples obtained at 7 different centers using the same coagulation reagent and instrumentation as [facility]. Currently there are no coagulation studies available worldwide for children to 14 days, and no normal ranges. Performed By: #### 2 140933, 0718844, 1725063, 429989470, 80846023 #### [facility] [address] [place] [address] Pre-Arrival Noteon 3 Pre-Arrival Note Pre-Arrival Summary Name: weakness, ncems Current Date: 12/19/2022 20:42:25 EDT Gender: Female Date of : Age: 72 Pre-Arrival Type: EMS ETA: 12/19/2022 20:55:00 EDT Primary Care Physician: Presenting Problem: gen. weakness Pre-Arrival User: Javier Flood RN Referring Source: Location: [place] Completion Date/Time: 12/19/2022 20:25:00 [facility] Emergency Department Pre-Hospital Report Form ____ Vital Signs: 140/83, 89pulse, 96% Pre-Hospital Report: generalized weakness. awaiting bed at [facility]. pt wanted seen . Treatment in Route: Response to Treatment: Misc. Issues: Normal [facility] Troponin 0 Hr.on 12-19-2022 Troponin I.cardiac [Mass/Vol] 9.40 pg/mL Low 10.10-27.1 0 [facility] Comment on above: Result Comment: The 95% CI (Confidence Interval) PPV (Positive Predictive Value) for myocardial infarction in females is 38 pg/mL, in males 51 pg/mL. The results should be used in conjunction with clinical conditions of myocardial infarction. (Access High Sensitivity Troponin I Instructions For Use, Gaby Humphrey, November 2017) Performed By: #### 2 436409, 5652191, 8451429, 562837336, 34333021 #### [facility] [address] [place] [address] UA With Cult Reflexon 2022 Bacteria LM Ql (Urine sed) 2+ /HPF Abnormal Trace [facility] Comment on above: Performed By: #### 2 676667, 4769529, 6286343, 464467541, 50093077 #### [facility] [address] [place] [address] Bilirubin Ql (U) Negative Normal Negative [facility] Comment on above: Performed By: #### 2 654648, 7862325, 5984171, 990345857, 31762760 #### [facility] [address] [place] [address] Clarity (U) CLEAR Normal Clear [facility] Comment on above: Performed By: #### 2 488521, 4817412, 2819117, 249623407, 80531614 #### [facility] [address] [place] [address] Color (U) YELLOW Normal Yellow [facility] Comment on above: Performed By: #### 2 731242, 0871356, 7512006, 077424739, 04382224 #### [facility] [address] [place] [address] Epithelial cells.squamous LM.HPF (Urine sed) [#/Area] 0-2 Normal 0-2 [facility] Comment on above: Performed By: #### 2 664323, 6786229, 0191354, 627978395, 14812635 #### [facility] [address] [place] [address] Glucose Test strip (U) [Mass/Vol] Negative Normal Negative [facility] Comment on above: Performed By: #### 2 674063, 3003582, 3683532, 145613176, 94483941 #### [facility] [address] [place] [address] Hemoglobin Ql (U) Negative Normal Negative [facility] Comment on above: Performed By: #### 2 976701, 8356345, 1040967, 850405084, 90835177 #### [facility] [facility] [address] [place] [address] Ketones (U) [Mass/Vol] Negative Normal Negative [facility] Comment on above: Performed By: #### 2 064394, 9346269, 5159045, [id number], [id number] #### [facility] [address] [place] [address] Black Jack.plasma/Black Jack. RBC (Bld) [Mass ratio] 0-3 Normal 0-3 [facility] Comment on above: Performed By: #### 2 063947, 0241112, 8505672, [id number], [id number] #### [facility] [address] [place] [address] Nitrite Ql (U) Positive Abnormal Negative [facility] Comment on above: Performed By: #### 2 858005, 4962857, 4140570, [id number], [id number] #### [facility] [address] [place] [address] pH (U) 6.0 [pH] Invalid Interpretation Code 5.0-9.0 [facility] Comment on above: Performed By: #### 2 260299, 3225330, 3960959, [id number], [id number] #### [facility] [address] [place] [address] Protein (U) [Mass/Vol] Negative Normal Negative [facility] Comment on above: Performed By: #### 2 026902, 6006863, 4227457, [id number], [id number] #### [facility] [address] [place] [address] Specific gravity (U) [Rel density] 1.025 Invalid Interpretation Code 1.005-1.03 0 [facility] Comment on above: Performed By: #### 2 737477, 1717374, 5767649, [id number], [id number] #### [facility] [address] [place] [address] Urobilinogen Qn (U) 0.2 {Tj'U}/dL Normal 0.0-1.0 [facility] Comment on above: Performed By: #### 2 302483, 0732989, 3819556, [id number], [id number] #### [facility] [address] [place] [address] WBC Auto Ql (U) TRACE Abnormal Negative [facility] Comment on above: Performed By: #### 2 408574, 1854631, 8345963, [id number], [id number] #### [facility] [address] [place] [address] WBC LM.HPF (Urine sed) [#/Area] 0-5 Normal 0-5 [facility] Comment on above: Performed By: #### 2 569443, 8046783, 3278094, [id number], [id number] #### [facility] [address] [place] [address] URINALYSISOrdered By: Evert Cordoba on 12-19-2022 Bacteria [...] PM) Normal Negative [facility] UA Auto SS Black Jack.plasma/Black Jack. RBC (Bld) [Mass ratio] 0-3 /HPF Normal 0-3/HPF [facility] UA Auto SS Nitrite Ql (U) Positive *ABN* (8/30/23 10:25 PM) Invalid Interpretation Code Negative [facility] [...] Comment: Mini cath specimen Urobilinogen Qn (U) 0.9217884 {Tj'U}/dL Normal 0.0 - 1.0 EU/dL [facility] UA Auto SS WBC Auto Ql (U) Trace *ABN* (12/19/22 10:25 PM) Invalid Interpretation Code Negative [facility] UA Auto SS WBC LM.HPF (Urine sed) [#/Area] 0-5 /HPF Normal 0-5/HPF [facility] UA Auto SS eGFRon 12-19-2022 GFR/1.73 sq M.predicted among non-blacks MDRD (S/P/Bld) [Vol rate/Area] 40 mL/min/1.73 m2 Low >=59 [facility] Comment on above: Order Comment: Order added by Discern Expert. Result Comment: Photolithographer aubrey kidney disease could be indicated at eGFR's of less than 60 mL/min/1.73m2. Kidney failure is indicated at less than 15 mL/min/1.73m2. Performed By: #### 2 425507, 5259867, 8509173, [id number], [id number] #### [facility] [address] [place] [address] CT Spine Lumbar w/o Contrast on 12-17-2022 [...] Arriaga M.D. Transcribed by: TOLU Technologist: TIEN [facility] Consent for Treatmenton 11-21 Consent for Treatment [id number]#[id number]:1 27 [facility] Discharge Instructionson Discharge Instructions [id number]#1.00CD:1 27 Normal [facility] ED Clinical Summaryon 2022 ED Clinical Summary (Inserted Image. Belle ble to display) [place] [id number] ED Clinical Summary Person Information [facility] Age[facility] 72 Years : 1950 Sex: Female Language: Scottish PCP: Rickey Askew MD Marital Status: Phone: [phone] MRN: Visit Id: Visit Reason: Weakness or [...] 12/17/2022 14:42:45 12/17/2022 14:42:45 12/17/2022 14:42:45 ADDRESS: [address] [place] [address] [address] [place] [id number] PHYS DOC NOTES: MEDICAL INFORMATION: Prescriptions Given: New Medications [email or web address], [address] [place] [id number], [phone] oxycodone (oxyCODONE 5 mg Tab) 1 Tablets [...] Follow up: With: Address: When: JOSÉ ANTONIO OVIEDO[address] [address] Business (1) In 3 days 12/20/2022 With: Address: When: Gavino Lugo [address] [place] [address] Business (1) In 3 days 12/20/2022 With: Address: When: Rickey Askew [address] [place] [address] Business (1) In 3 days 12/20/2022 DIAGNOSIS: Fall; Lumbar compression fracture Normal [facility] ED Note-Physicianon 12-18-19 ED Note-Physician Basic Information [...] day(s), # 15 tab(s), Refills(s) 0, Pharmacy: [email or web address], 168, cm, 12/17/22 10:29:00 EDT, Height/Length [...] VARGAS In 3 days 12/20/[address] [address]- Business (1) Additional Instructions: Gavino Lugo In 3 days 12/20/2022 EDT [address] [place] [address]- Business (1) Additional Instructions: Rickey Askew In 3 days 12/20/2022 EDT [address] [place] [address]- Business (1) Additional Instructions: Patient Education Lumbar Spine Fracture Attestation Patient seen and evaluated by the physician environmental emergencies assistant. Attending physician was present in the emergency department and supervised care. This visit was performed by both the physician and an APC. I performed all aspects of the MDM as documented. This report was transcribed using voice recognition software. Every effort was made to ensure accuracy, however, inadvertently computerized instructional services librarian mistakes may be present. Appropriate healthcare PPE [...] closed fra (more content not included)... Normal [facility] Comment on above: Result Comment: [...] these instructions at home: Medicines ? Take rdlp-awj-kqchhyf and prescription medicines only as told by [...] fried or sweet foods. ? Take an xdem-bkw-enzuhev or prescription medicine for constipation. If you [...] is renae (more content not included)... Normal [facility] ED Patient Summaryon 023 ED Patient Summary (Inserted Image. Belle ble to display) [address] [address] Patient Discharge Instructions Person Information Name: MARLEN STALEY Age: 72 Years Arrival Date: 12/17/2022 10:19:35 Discharge Diagnosis: Fall; Lumbar compression fracture Primary Care Physician: Rickey Askew MD Provider Information Primary Provider: Jeffery Murphy DO Advanced Warehouse Engineer:Gui Scruggs PA-C The exam and treatment you received in the Emergency Department were for an urgent problem and are not intended as complete care. It is important that you follow up with a doctor, nurse practitioner, or physician?s environmental emergencies assistant for ongoing care. If your symptoms become [...] Instructions: With: Address: When: JOSÉ ANTONIO VARGAS [address] [place] [address] Business (1) In 3 days 12/20/2022 With: Address: When: Gavino Lugo [address] [place] [address] Business (1) In 3 days 12/20/2022 With: Address: When: Rickey Askew [address] [place] [address] Business (1) In 3 days 12/20/2022 In the event that this physician does not participate in your insurance network, please consult with your insurance company to find a nearby participating provider. Patient Education Materials: Lumbar Spine Fracture A MESSAGE TO ALL PATIENTS REGARDING OPIOIDS PRESCRIPTION OPIOIDS: WHAT YOU NEED TO KNOW Prescription opioids can be used to help relieve poeuleav-bg-eosgxe pain and are often prescribed following a [...] cesForYou). ? Visit (more content not included)... Normal [facility] Prison Recordson 12-17 Prison Records [id number]#1.00CD:1 27 Normal [facility] XR Hip 2-3 Views Right [...] TOLU Technologist: JOVITA Technical Comments Radiation Dose: Ka,r in mGy = na DAP = na Report last revised on 12/17/2022 12:37 EDT by Pipo Mayfield DO Normal [facility] XR Spine Lumbosacral 2 or [...] FINDINGS: Mild compression fracture of L1 and wlfd-ao-vdgpwhdg compression fracture of L2. No significant interval [...] mGy = na DAP = na Normal [facility] Family Medicine Office/Clini c Noteon 12-14-2022 Family Medicine Office/Clinic Note History of Present Illness Discharge from [facility] 12/15 ADMIT from [facility] 11/02?16 multiple falls and increasing weakness, neighbor did not feel she was safe at home. currently admitted to [facility] with weakness, dementia. Was unable to ambulate [...] in WC. I observed her walking up ahas w aide, using walker. Did well. Alert, [...] Daily, # 90 tab(s), Refills(s) 4, Pharmacy: [email or web address], 167, cm, 11/01/22 20:02:00 EDT, Height/Length Dosing, 90.3, kg, 11/01/22 20:02:00 EDT, Weight Dosing Home Health Tunv-ey-Spub Encounter Type: Medicare Reason for Qxmq-yt-Ddxy (Diagnosis): DISCHARGE DIAGNOSIS Skilled Encounter Detail I certify that I conducted and documented that a tskn-nv-wmea (F2F) encounter with the consumer occurred within the 90 days prior to the home health services start of care date, or within 30 days following the start of care date (inclusive of the start of care date), preceding the certification of medical necessity. Group Home: Yes Physical Therapy: Yes Occupational Therapy: Yes Speech Therapy: _ Lift Team Technician: _ Applications Sales Representative: _ Need for Home Health Services I certify based on my findings that... a. Home health services are medically necessary for this patient, including either intermittent mcfp and/or therapy, AND b. The patient cannot [...] D deficiency H (more content not included)... [facility] Comment on above: Result Comment: Elec tronically Signed By: PILAR HANKS, Sammy\.br\Date and Time Signed: 12/14/22 16:36 EDT ONC - Otheron 12-12-2022 ONC - Other [id number]#1.00CD:1 27 [facility] ONC - Otheron 12-04-2022 ONC - Other [id number]#1.00CD:1 27 [facility] ONC - Otheron 11-21-2022 ONC - Other [id number]#1.00CD:1 27 [facility] XR Pelvis 1 or 2 [...] in mGy = na DAP = na [facility] RAD - MISCon 11-20-2022 RAD - MISC [id number]#1.00CD:1 27 [facility] Discharge Documentationon Discharge Documentation [id number]#1.00CD:1 27 Normal [facility] Family Medicine Office/Clini c Noteon 11-06-2022 Family Medicine Office/Clinic Note History of Present Illness [facility] ADMIT from [facility] 11/02?16 multiple falls and increasing weakness, neighbor did not feel she was safe at home. currently admitted to [facility] with weakness, dementia. Was unable to ambulate [...] anastrozole, Vit B12 Pt brought in her [employer] supply 3. HTN (hypertension) (I10: Essential (primary) [...] 11 refills ergocalciferol 50,000 intl units Cap, 85459 International_Unit= 1 cap(s), Oral, q7day Kisqali (200 [...] indicated. [1] [1] CT Pelvis w/o Contrast; Christian Mckeon MD 11/02/2022 13:54 EDT [facility] Comment on above: Result Comment: Elec tronically Signed By: PILAR HANKS, Dedrick.br\Date and Time Signed: 11/06/22 22:21 EDT Message from Medicareon 10-20 Message from Medicare [id number]#1.00CD:1 27 [facility] Transfer Documentson 023 Transfer Documents [id number]#1.00CD:1 27 [facility] Insurance Correspondence Off iceon 11-05-2022 Insurance Correspondence Office [id number]#1.00CD:12 7 [facility] Inpatient Clinical Summaryon 11-04-2022 Inpatient Clinical Summary [address] [address] Clinical Summary Person Information: Name: MARLEN STALEY Age: 72 Years : 1950 Sex: Female PCP: Rickey Askew MD Marital Status: Phone: [phone] Race: White Ethnicity: Non- or Language: Scottish MRN: Visit Id: Visit Reason: Weakness or fatigue; Trauma - minor; Multiple falls; WEAKNESS, CHEST PAIN Speciality: Acuity: Enc Type: Observation Med Service: Medical Arrival: 11/01/2022 19:53:41 Discharge: Dispo Type: Admitted as IP to this [facility] Address: [address] [place] [address] [address] [place] [id number] Provider Notes: Addendum by Trevor HANKS, [facility] on November 04, 2022 12:36:52 EDT [...] up: With: Address: When: Hollis MERRILL [address] [facility], [address], [employer] [address] [place] [address] Business (1) Comments: Urinary retnetion w/dooley With: Address: When: Gavino Lugo [address] [place] [address] Business (1) Comments: Call for followup appointment in 4 weeks for repeat pelvis xray With: Address: When: Rickey Askew [address] [place] [address] Business (1) Type Location Start [facility] Secured Appointment Type Secured Location 11/22/2022 2:15 PM 11/22/2022 2:30 PM Confirmed Patient Education Information: Weakness Normal [facility] Inpatient Patient Summaryon 11-04-2022 Inpatient Patient Summary [facility] [address] [place], [place] [address] Patient Discharge Instructions PERSON INFORMATION Name: MARLEN STALEY Date of : 1950 Current Date: 11/04/2022 12:38:52 PHYSICIANS Admitting Physician: Mariia LOPEZ DO Primary Care Physician: Rickey Askew MD PCP Comment: Discharge Diagnosis: 1:Generalized weakness; 2:HTN (hypertension); 3:Hypercholesteremia; 4:History of breast cancer; 5:On deep vein thrombosis (DVT) prophylaxis; Multiple falls Condition at Discharge: Stable REBEKASTEFFIMARLEN has been given the following list of [...] up: With: Address: When: Hollis MERRILL [address] [facility], [address], [address] [address] Business (1) Comments: Urinary retnetion w/spencer With: Address: When: Gavino Lugo [address] [place] [address] Business (1) Comments: Call for followup appointment in 4 weeks for repeat pelvis xray With: Address: When: Rickey Askew [address] [place] [address] Business (1) In the event that this physician does not participate in your insurance network, please consult with your insurance company to find a nearby participating provider. Type Location Start [employer] Secured Appointment Type Secured Location 11/22/2022 2:15 PM 11/22/2022 2:30 PM Confirmed Comment: IREBEKA BARBARA, have received the attached patient education materials/instructions and have verbalized understanding: Patient Signature ____ Date Clinican/Nurse Signature Date HERE ARE THE MEDICATION CHANGES THAT OCCURRED DURING YOUR HOSPITAL STAY New Medications [facility], [address] [phone], [phone] ergocalciferol (ergocalciferol 50,000 intl units Cap) 1 [...] Next Dose: ri (more content not included)... [facility] Inpatient Patient Summary MARLEN STALEY :1950 Visit [...] the operative site, Persistent vomiting Pharmacy Information [facility] [place] Previously Scheduled Follow-Up Appointments 2022 2:15 PM EDT With: Senthil Caldera DO Where: [facility] New Follow Up Appointments after Discharge Follow Up with Gavino Lugo When: Comments: Call for followup appointment in 4 weeks for repeat pelvis xray Where: [address] [place], [place] [address] (1) Follow Up with Rickey Askew When: In 0 days Where: [address] [place] [address]- [employer] (1) Medications What How Much When Why Instructions Next Dose New ergocalciferol (ergocalciferol 50,000 intl units Cap) 1 Capsules By Mouth Every 7 days Pickup at [facility] Unchanged anastrozole (anastrozole 1 mg Tab) [...] Once a day (at bedtime) Pharmacy Information [facility]: [address] [place], [place] [id number] [phone] Test Results CBC BMP WBC: 6.6 E9/L (11/01/22 22:01:00) Glucose Lvl: 130 mg/dL (11/01/22 22:01:00) RBC: 3.7 E12/L Low (11/01/22 22:01:00) BUN: 26 mg/dL High (11/01/22 22:01:00) HGB: 12.1 gm/dL (11/01/22 22:01:00) Creatinine: 1.3 mg/dL (11/01/22 22:01:00) Hct: 36.5 % (11/01/22 22:01:00) BUN (more content not included)... [facility] 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 Note - Attila e Manageron 11-04-2022 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 Note - Commissary Production Supervisor CRM to room to discuss DC planning. [...] Precert is back and can go to tcu/[facility] BED 56 [facility] Comment on above: Result Comment: Elec tronically Signed By: Florence Ortega\.br\Date and Time Signed: 11/04/22 13:07 EDT CHEMISTRYOrdered By: SYSTEM SYSTEM on 11-03-2022 25-hydroxyvitamin D3 [Mass/Vol] ng/mL Low 30.0 - 100.0 ng/mL [facility]isol 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 Note - Attila e Manageron 11-03-2022 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 Note - Commissary Production Supervisor CRM to room to discuss DC planning. [...] board updated. Anticipated DC once SNF arranged Normal [facility] Comment on above: Result Comment: [...] to examine patient. -AP pelvis was ordered -[place] -PT recommended SNF will send her to [...] Color: Yellow2 (11/02/22 17:30:00) UA Clarity: Clear2 (11/02/22:30:00) UA Spec Grav: 1.025 (11/02/22 17:30:00) UA pH: 6.0 (11/02/22 17:30:00) UA Protein: Trace2 Abnormal (11/02/22 17:30:00) UA Glucose: NEGATIVE1 (11/02/22:30:00) UA Ketones: Trace2 Abnormal (11/02/22 17:30:00) UA Bili: NEGATIVE1 (11/02/22 17:30:00) UA Blood: Trace2 Abnormal (11/02/22 17:30:00) UA Nitrite: NEGATIVE1 (11/02/22:30:00) UA Urobilinogen: 1.0 (11/02/22 17:30:00) UA Leuk [...] q6hr, PRN ergocalciferol 50,000 intl units Cap, 02032 unit(s)= 1 cap(s), Oral, q7day hydrALAZINE 20 mg/mL Inj, 10 mg= 0.5 mL, IV Push, q6hr, PRN kisqali 200mg, Normal Patient Dose, Oral, q24hr lisinopril 10 mg Tab, 10 mg= 1 tab(s), Oral, Daily Lovenox 40 mg/0.4 mL SC Billie, 40 mg= 0.4 mL, SubCutaneous, Daily [place] 5/325 Tab, 1 tab(s), Oral, q6hr, PRN [...] can follow up out pt w/urology Normal [facility] Comment on above: Result Comment: Elec tronically Signed By: Trevor HANKS, Wyatt\.br\Date and Time Signed: 11/03/22 08:08 EDT RPR with Conf Rfxon 11-04-19 Reagin Ab RPR Ql (S) Non-Reactive Invalid Interpretation Code Non Reactive [facility] Comment on above: Result Comment: Perf ormed at: [facility] [address] [id number] PhD [place] Avelar Performed By: #### 2 959203, [id number], [id number], [id number], [id number] #### [facility] [address] [place] [address] Vitamin D 25 Hydroxyon 11-03 25-hydroxyvitamin D3 [Mass/Vol] ng/mL Low 30.0-100.0 [facility] Comment on above: Result Comment: Vit beltran D deficiency has been defined as a level of serum 25-OH vitamin D less than 20 ng/mL (1,2) by the [place] of Medicine and an Endocrine Society practice guideline. The Endocrine Society further defined vitamin D insufficiency as a level between 21 and 29 ng/mL (2). 1. IOM ([place] of Medicine). 2010. Dietary reference intakes for calcium and D. [place]: The National Academies Press. 2. Katlin MF, Taylor [place], Jarad DUKE, et al. Evaluation, treatment, and prevention of vitamin D deficiency: an Endocrine Society clinical practice guideline. JCEM. 2010; 96 (7):1911-30. Performed By: #### 5 [id number] ####[facility] [address] [place] [address] CT Pelvis w/o Contraston CT Pelvis w/o [...] REPORT Dictated: 11/02/2022 2:42 pm Christian Mckeon MD Signed (Electronic Signature): 11/02/2022 2:42 pm Signed by: Christian Mckeon MD Transcribed by: TOLU Technologist: LASHAY Technical Comments Rectal Contrast Given? No Oral contrast amount in ml's: 0 Normal [facility] ED Clinical Summaryon 2022 ED Clinical Summary (Inserted Image. Belle ble to display) [place] [id number] ED Clinical Summary Person Information Name: MARLEN STALEY/Savita Age: 72 Years : 1950 Sex: Female Language: Scottish PCP: Rickey Askew MD Marital Status: Phone: [phone] MRN: Visit Id: Visit Reason: Weakness or fatigue; Trauma - minor; Multiple falls; WEAKNESS, CHEST PAIN Speciality: Acuity: 2 Enc Type: Observation Med Service: Emergency Arrival: 11/01/2022 19:53:41 Discharge: LOS: 000 07:19 Checkin: 11/01/2022 19:53:41 Checkout: 11/02/2022 03:12:35 Dispo Type: Admitted as IP to this [facility] EVENTS: Event Name Event Status Request Date/Time [...] 11/02/2022 03:12:35 11/02/2022 03:12:35 11/02/2022 03:12:35 ADDRESS: [address] [place] [address] [address] [place] [id number] PHYS DOC NOTES: MEDICAL INFORMATION: Prescriptions Given: [...] deep vein thrombosis (DVT) prophylaxis; Multiple falls Normal [facility] ED Note-Physicianon 11-03-19 ED Note-Physician Radiologist has read the x-ray of the sacrum and there is discrepancy. He is reading he has a left pubic rami fracture. The patient has been admitted to the hospital.The hospitalist notified. Normal [facility] Comment on above: Result Comment: Elec tronically Signed By: Trell Avendano, Alok Dexter\.johnnie\Date and Time Signed: 11/02/22 07:41 EDT ED Note-Physician Basic Information Time Seen: Kelly Meredith DO 11/01/2022 20:01 Chief Complaint pt to ED via [facility] with c/o chest bruise from fall earlier today. c/o increasing weakness. denies thinners or hitting head with earlier fall. denies PMH. hx of DM. pt A&Ox4 upon ED arrival, applied to cardiac surgeon. History of Present Illness Patient is a [...] and Complexity of Problems Differential Diagnosis: [] [facility] Data External documents reviewed: [] [...] mg Ta (more content not included)... Normal [facility] Comment on above: Result Comment: Elec tronically Signed By: Kelly Meredith DO\.br\Date and Time Signed: 11/02/22 00:27 EDT ED Patient Education Noteon 11-02-2022 ED Patient Education Note Normal [facility] ED Patient Summaryon 023 ED Patient Summary (Inserted Image. Belle ble to display) [place] [id number] Patient Discharge Instructions Person Information Name: MARLEN STALEY Age: 72 Years Arrival Date: 11/01/2022 19:53:41 Discharge Diagnosis: 1:Generalized weakness; 2:HTN (hypertension); 3:Hypercholesteremia; 4:History of breast cancer; 5:On deep vein thrombosis (DVT) prophylaxis; Multiple falls Primary Care Physician: Rickey Askew MD Provider Information Primary Provider: Kelly Meredith DO Advanced Warehouse Engineer:None The exam and treatment you received in the Emergency Department were for an urgent problem and are not intended as complete care. It is important that you follow up with a doctor, nurse practitioner, or physician?s environmental emergencies assistant for ongoing care. If your symptoms become [...] opioids can be used to help relieve kugvlfha-uj-hkzwdo pain and are often prescribed following a [...] be struggling with addiction, tell your health physician assistant primary care and ask for guidance or call [facility] National Helpline at 8-958-044-ZXOY. m Source: US Department of Health and Human Servi (more content not included)... Normal [facility] ED Traumaon 11-02-2022 ED Trauma [id number]#1.00CD:1 27 Normal [facility] FolateOrdered By: SYSTEM SYS TEM on 11-02-2022 Folate [Mass/Vol] 11.4 ng/mL Normal >=6.7 [facility] Comment on above: Performed By: #### 2 [id number], [id number], [id number], [id number], [id number] #### [facility] Laboratory [address] [place] [address] Insurance Correspondence Off iceon 11-02-2022 Insurance Correspondence Office [id number]#[id number]:12 7 [facility] 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 Note - Attila e Manageron 11-02-2022 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 Note - Commissary Production Supervisor CRM to room to discuss DC planning. [...] spouse she can have a bed on [facility] side. CRM will update patient and TCU Patient is okay with [facility] side, she knows that she can visit him and have meals [facility] Comment on [...] functional transfers. OT evaluation completed by Bob Guevara/OT under direct supervision from SIVAKUMAR Estrada, OTR/L. [facility] 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 Note - Soc ial Workeron 11-02-2022 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 Note - Package Sealer This SW responded to a consult on [...] has a phone call out to her lasting machine operator to obtain a copy of this documentation [...] anymore. SW will remain available as needed. Normal [facility] Monitor Recordon 11-02-2022 Monitor Record [id number]:1 27 Normal [facility] Progress Note-Physicianon Progress Note-Physician Patient: MARLEN STALEY [...] drugs- Sob - shortness of breath. Normal [facility] Comment on above: Result Comment: [...] -AP pelvis was ordered -Checking vitamin D -[place] Metastatic breast cancer ? Continue with chemotherapeutics [...] E12/L Low (11/01/22 22:01:00) HGB: 12.1 gm/dL (11/01/22::00) Hct: 36.5 % (11/01/22::00) MCV: 99.3 fL (11/01/22::00) MCH: 32.9 pg (11/01/22::00) MCHC: 33.1 gm/dL (11/01/22::00) RDW: 16.3 % High (11/01/22::00) Platelet: 229 E9/L (11/01/22::00) MPV: 7.3 fL (11/01/22::00) Neutro Auto: 65.9 % (11/01/22::00) Lymph Auto: 24.6 % (11/01/22::) [place] Auto: 5 % (11/01/22::00) Eos Auto: 3.3 % (11/01/22::) Basophil Auto: 1.2 % (11/01/22::) Neutro Absolute: 4.4 E9/L (11/01/22::00) Lymph Absolute: 1.6 E9/L (11/01/22::00) [place] Absolute: 0.3 E9/L (11/01/22::00) Eos Absolute: 0.2 E9/L (11/01/22::00) Basophil Absolute: 0.1 E9/L (11/01/22::00) Glucose Lvl: 130 mg/dL (11/01/22::00) BUN: 26 mg/dL High (11/01/22::00) Creatinine: 1.3 mg/dL (11/01/22::00) eGFR: 43 mL/min/1.73 m2 Low (11/01/22::00) BUN/Creat Ratio: 20 (11/01/22::00) Sodium Lvl: 138 mmol/L (11/01/22::00) Potassium Lvl: 4.2 mmol/L (11/01/22::00) Chloride: 105 mmol/L (11/01/22::00) CO2: 22 mmol/L (11/01/22 22:01:00) AGAP: 15 mEq/L (11/01/22 22:01:00) Calcium Lvl: 9.1 mg/dL (11/01/22 22:01:00) Alk Phos: 110 Int._Unit/L High (11/01/22 22:01:00) ALT: 13 Int._Unit/L (11/01/22::00) AST: 20 Int._Unit/L (11/01/22::00) Total Protein: 6.9 gm/dL (11/01/22 22:01:00) Albumin Lvl: 3.5 gm/dL (11/01/22::00) Globulin: 3.4 gm/dL (11/01/22::00) A/G Ratio: 1 Low (11/01/22 22::00) Bili Total: 0.9 mg/dL (11/01/22::00) Bili Direct: 0.2 mg/dL (11/01/22::00) Bili Indirect: 0.7 mg/dL (11/01/22 22::00) TSH: 0.93 mcIU/mL (11/02/22 06:00:00) Troponin: 7.5 pg/mL Low (11/01/22:01:00) Vitamin B12 Lvl: 470 pg/mL (11/02/22 06:00:00) Folate Lvl: 11.4 ng/mL (11/02/22 06:00:00) UA Spec Desc: Clean Catch (11/01/22:20:00) UA Color: Yellow2 (11/01/22 23:20:00) UA Clarity: SL CLOUDY (11/01/22:20:00) UA Spec Grav: 1.025 (11/01/22:20:00) UA pH: 6.0 (11/01/22 23:20:00) UA Protein: 1+ Abnormal (11/01/22 23:20:00) UA Glucose: NEGATIVE1 (11/01/22 23:20:00) UA Ketones: Trace2 (07/13/23 23:20:00) UA Bili: NEGATIVE1 (11/01/22 23:20:00) UA [...] Invasive du (more content not included)... Normal [facility] Comment on above: Result Comment: Elec tronically Signed By: Trevor HANKS, Wyatt\.br\Date and Time Signed: 11/02/22 12:22 EDT Reference Laboratory Testing Ordered By: Generated DomainUser on 11-02-2022 Reagin Ab RPR Ql (S) Non-Reactive Invalid Interpretation Code Non Reactive [facility] SendOutsSS Comment on above: Result Comment: Perf ormed at: [facility] [address] [id number] PhD [place] Avelar TSH With T4fr ReflexOrdered By: SYSTEM SYSTEM on 11-02-2022 TSH Qn 0.93 m[IU]/L Normal 0.34-5.60 [facility] Comment on above: Performed By: #### 2 650895, 7865964, 7784249, [id number], 51962739 #### [facility] [address] [place] [address] UA With Cult Reflexon 2022 Bacteria LM Ql (Urine sed) TRACE Normal Trace [facility] Comment on above: Order Comment: Urina ry Catheter Insertion triggered Urinalysis With Culture Reflex order by discern. Performed By: #### 2 519824, 2604988, 3189141, 913110656, 79599215 #### [facility] [address] [place] [address] Bilirubin Ql (U) Negative Normal Negative [facility] Comment on above: Order Comment: Urina ry Catheter Insertion triggered Urinalysis With Culture Reflex order by discern. Performed By: #### 2 395975, 4497116, 8669930, 057175242, 15737715 #### [facility] [address] [place] [address] Clarity (U) CLEAR Normal Clear [facility] Comment on above: Order Comment: Urina ry Catheter Insertion triggered Urinalysis With Culture Reflex order by discern. Performed By: #### 2 664822, 0202292, 1231688, 585839460, 19007164 #### [facility] [address] [place] [address] Color (U) YELLOW Normal Yellow [facility] Comment on above: Order Comment: Urina ry Catheter Insertion triggered Urinalysis With Culture Reflex order by discern. Performed By: #### 2 781329, 6778274, 3436933, 314846799, 65477464 #### [facility] [address] [place] [address] Epithelial cells.squamous LM.HPF (Urine sed) [#/Area] 3-4 Normal 0-2 [facility] Comment on above: Order Comment: Urina ry Catheter Insertion triggered Urinalysis With Culture Reflex order by discern. Performed By: #### 2 472003, 5251949, 0867291, 813816233, 78214743 #### [facility] [address] [place] [address] Glucose Test strip (U) [Mass/Vol] Negative Normal Negative [facility] Comment on above: Order Comment: Urina ry Catheter Insertion triggered Urinalysis With Culture Reflex order by discern. Performed By: #### 2 090768, 9679316, 9897065, 924086903, 72845021 #### [facility] [address] [place] [address] Hemoglobin Ql (U) TRACE Abnormal Negative [facility] Comment on above: Order Comment: Urina ry Catheter Insertion triggered Urinalysis With Culture Reflex order by discern. Performed By: #### 2 462493, 6794044, 3995807, 171336783, 99682327 #### [facility] [address] [place] [address] Ketones (U) [Mass/Vol] TRACE Abnormal Negative [facility] Comment on above: Order Comment: Urina ry Catheter Insertion triggered Urinalysis With Culture Reflex order by discern. Performed By: #### 2 448305, 4176431, 3312715, 993168907, 74385884 #### [facility] [address] [place] [address] [place].plasma/[place]. RBC (Bld) [Mass ratio] 4-20 Normal 0-3 [facility] Comment on above: Order Comment: Urina ry Catheter Insertion triggered Urinalysis With Culture Reflex order by discern. Performed By: #### 2 410043, 5118823, 2728276, 426942991, 74763132 #### [facility] [address] [place] [address] Nitrite Ql (U) Negative Normal Negative [facility] Comment on above: Order Comment: Urina ry Catheter Insertion triggered Urinalysis With Culture Reflex order by discern. Performed By: #### 2 464394, 8676082, 8568579, 445400907, 14848626 #### [facility] [address] [place] [address] pH (U) 6.0 [pH] Invalid Interpretation Code 5.0-9.0 [facility] Comment on above: Order Comment: Urina ry Catheter Insertion triggered Urinalysis With Culture Reflex order by discern. Performed By: #### 2 075869, 3754191, 2940865, 936434847, 60301439 #### [facility] [address] [place] [address] Protein (U) [Mass/Vol] TRACE Abnormal Negative [facility] Comment on above: Order Comment: Urina ry Catheter Insertion triggered Urinalysis With Culture Reflex order by discern. Performed By: #### 2 418181, 0302497, 3382931, 458235062, 28101020 #### [facility] [address] [place], [place] [address] Specific gravity (U) [Rel density] 1.025 Invalid Interpretation Code 1.005-1.03 0 [facility] Comment on above: Order Comment: Urina ry Catheter Insertion triggered Urinalysis With Culture Reflex order by discern. Performed By: #### 2 885865, 9653435, 5599614, 556308752, 90099472 #### [facility] [address] [place] [address] Type of Urine collection method Catheter Normal [facility] Comment on above: Order Comment: Urina ry Catheter Insertion triggered Urinalysis With Culture Reflex order by discern. Performed By: #### 2 030130, 5881913, 7724697, 754691678, 89684713 #### [facility] [address] [place], [place] [address] Urobilinogen Qn (U) 1.0 {Tj'U}/dL Normal 0.0-1.0 [facility] Comment on above: Order Comment: Urina ry Catheter Insertion triggered Urinalysis With Culture Reflex order by discern. Performed By: #### 2 893683, 4901278, 7330557, 371133197, 52540444 #### [facility] [address] [place], [place] [address] WBC Auto Ql (U) Negative Normal Negative [facility] Comment on above: Order Comment: Urina ry Catheter Insertion triggered Urinalysis With Culture Reflex order by discern. Performed By: #### 2 626556, 7701930, 1170713, 395499507, 78708040 #### [facility] [address] [place] [address] WBC LM.HPF (Urine sed) [#/Area] 0-5 Normal 0-5 [facility] Comment on above: Order Comment: Urina ry Catheter Insertion triggered Urinalysis With Culture Reflex order by discern. Performed By: #### 2 032016, 5946245, 0808501, 405157909, 12926843 #### [facility] [address] [place] [address] URINALYSISOrdered By: Dianne Villa on 11-02-2022 Bacteria [...] Interpretation Code Negative [facility] UA Auto SS Black [place].plasma/[place]. RBC (Bld) [Mass ratio] 4-20 /HPF Normal [...] [facility] UA Auto SS Urobilinogen Qn (U) 1.3214290 {Tj'U}/dL Normal 0.0 - 1.0 EU/dL [facility] UA Auto SS WBC Auto Ql (U) Negative (11/02/22 5:30 PM) Normal Negative [facility] UA Auto SS WBC LM.HPF (Urine sed) [#/Area] 0-5 /HPF Normal 0-5/HPF [facility] UA Auto SS Vit [id number] By: SYSTEM SY STEM on 11-02-2022 Cobalamin (Vitamin B12) [Mass/Vol] 470 pg/mL Normal 50-1500 [facility] Comment on above: Performed By: #### 2 365094, 6085932, 0193986, 768083127, 61731418 #### [facility] [address] [place] [address] XR Chest Single Viewon 11-02 XR Chest [...] TOLU Technologist: SAROJ Technical Comments Radiation Dose: Kar in mGy = na DAP = na Normal [facility] XR Pelvis 1 or 2 [...] mGy = na DAP = na Normal [facility] XR Sacrum and Coccyx Min 2 [...] M.D., DISAGREE Fx. lt. pubic rami Normal [facility] Auto Diffon 11-01-2022 Basophils/100 WBC (Bld) 1.2 % Normal 0.0-2.0 [facility] Comment on above: Order Comment: Order Added by Discern Expert. Performed By: #### 2 621899, 3401477, 4645388, 798183511, 62746126 #### [facility] [address] [place] [address] Basophils/Leukocytes Auto (Bld) [Pure # fraction] 0.1 E9/L Normal 0.0-0.2 [facility] Comment on above: Order Comment: Order Added by Discern Expert. Performed By: #### 2 578897, 4376444, 7981065, 401743712, 14690978 #### [facility] [address] [place] [address] Eosinophils/100 WBC (Bld) 3.3 % Normal 0.0-8.0 [facility] Comment on above: Order Comment: Order Added by Discern Expert. Performed By: #### 2 927379, 0912317, 4503574, 262820377, 93415926 #### [facility] [address] [place] [address] Eosinophils/Leukocytes Auto (Bld) [Pure # fraction] 0.2 E9/L Normal 0.0-0.5 [facility] Comment on above: Order Comment: Order Added by Discern Expert. Performed By: #### 2 151142, 8498588, 4505618, 792763509, 66125465 #### [facility] [address] [place] [address] Lymphocytes/100 WBC (Bld) 24.6 % Normal 14.0-50.0 [facility] Comment on above: Order Comment: Order Added by Discern Expert. Performed By: #### 2 371545, 0544961, 2760590, 787089888, 94291603 #### [facility] [address] [place] [address] Lymphocytes/Leukocytes Auto (Bld) [Pure # fraction] 1.6 E9/L Normal 1.0-4.0 [facility] Comment on above: Order Comment: Order Added by Discern Expert. Performed By: #### 2 494482, 0319105, 2185519, 190067190, 58841699 #### [facility] [address] [place] [address] Monocytes/100 WBC (Bld) 5.0 % Normal 4.0-14.0 [facility] Comment on above: Order Comment: Order Added by Discern Expert. Performed By: #### 2 944362, 6576920, 4038266, 775261960, 88096598 #### [facility] [address] [place] [address] Monocytes/Leukocytes Auto (Bld) [Pure # fraction] 0.3 E9/L Normal 0.2-1.0 [facility] Comment on above: Order Comment: Order Added by Discern Expert. Performed By: #### 2 248791, 3183894, 1013991, 721989889, 99068846 #### [facility] [address] [place] [address] Neutrophils/100 WBC (Bld) 65.9 % Normal 36.0-75.0 [facility] Comment on above: Order Comment: Order Added by Faviola Expert. Performed By: #### 2 618740, 5970273, 8529517, 017615724, 39937792 #### [facility] [address] [place] [address] Neutrophils/Leukocytes Auto (Bld) [Pure # fraction] 4.4 E9/L Normal 2.0-7.5 [facility] Comment on above: Order Comment: Order Added by Faviola Expert. Performed By: #### 2 655186, 9917978, 0998326, 086779569, 88852420 #### [facility] [address] [place] [address] BMPon 11-01-2022 Creatinine [Mass/Vol] 1.3 mg/dL Normal 0.5-1.3 [facility] Comment on above: Performed By: #### 2 243608, 6030560, 1302960, 004096570, 17550438 #### [facility] [address] [place] [address] Urea nitrogen [Mass/Vol] 26 mg/dL High 5-21 [facility] Comment on above: Performed By: #### 2 146743, 5087145, 6668342, 088352297, 39571889 #### [facility] [address] [place] [address] Urea nitrogen/Creatinine [Mass ratio] 20 No Units Normal 10-20 [facility] Comment on above: Performed By: #### 2 613905, 6056578, 4580247, 891838154, 92493127 #### [facility] [address] [place] [address] Anion gap [Moles/Vol] 15 mmol/L Normal 6-16 [facility] Comment on above: Performed By: #### 2 797915, 3699955, 9936020, 200692607, 19951030 #### [facility] [address] [place] [address] Calcium [Mass/Vol] 9.1 mg/dL Normal 8.9-11.1 [facility] Comment on above: Performed By: #### 2 426299, 6738396, 1943273, 484178841, 43772011 #### [facility] [address] [place] [address] Chloride [Moles/Vol] 105 mmol/L Normal 101-111 [facility] Comment on above: Performed By: #### 2 959832, 1453542, 0553170, 741323407, 60955452 #### [facility] [address] [place] [address] CO2 [Moles/Vol] 22 mmol/L Normal 21-31 [facility] Comment on above: Performed By: #### 2 889956, 5737304, 3838767, 320145866, 18001322 #### [facility] [address] [place] [address] Glucose [Mass/Vol] 130 mg/dL Normal 55-199 [facility] Comment on above: Result Comment: If t his glucose result represents a fasting glucose, interpretation should refer to the following reference range: 55-99 mg/dL Performed By: #### 2 048943, 3594901, 0148103, 382631707, 47705626 #### [facility] [address] [place] [address] Potassium [Moles/Vol] 4.2 mmol/L Normal 3.5-5.3 [facility] Comment on above: Performed By: #### 2 617024, 6123465, 0552341, 966710844, 31392918 #### [facility] [address] [place] [address] Sodium [Moles/Vol] 138 mmol/L Normal 135-145 [facility] Comment on above: Performed By: #### 2 259955, 5908131, 0349787, 092736242, 55035436 #### [facility] [address] [place] [address] CBC w/ Auto Diffon 3 Erythrocyte distribution width (RBC) [Ratio] 16.3 % High 10.9-14.2 [facility] Comment on above: Performed By: #### 2 769423, 3896894, 7034631, 180787061, 55922194 #### [facility] [address] [place] [address] Hematocrit (Bld) [Volume fraction] 36.5 % Normal 34.0-46.0 [facility] Comment on above: Performed By: #### 2 967608, 8963873, 6031615, 766655216, 04692501 #### [facility] [address] [place] [address] Hemoglobin (Bld) [Mass/Vol] 12.1 g/dL Normal 12.0-16.0 [facility] Comment on above: Performed By: #### 2 183212, 3355649, 0273072, 781211849, 88285698 #### [facility] [address] [place] [address] MCH (RBC) [Entitic mass] 32.9 pg Normal 27.0-34.0 [facility] Comment on above: Performed By: #### 2 968003, 4324637, 0976486, 946014524, 54357112 #### [facility] [address] [place] [address] MCHC (RBC) [Mass/Vol] 33.1 g/dL Normal 31.4-36.0 [facility] Comment on above: Performed By: #### 2 897824, 3279414, 9574599, 598835216, 61958465 #### [facility] [address] [place] [address] MCV (RBC) [Entitic vol] 99.3 fL Normal 80.0-100.0 F [facility] Comment on above: Performed By: #### 2 479617, 9778532, 2708998, 852068213, 84682417 #### [facility] [address] [place], [place] [address] Platelet mean volume (Bld) [Entitic vol] 7.3 fL Normal 6.4-10.8 [facility] Comment on above: Performed By: #### 2 060185, 4397733, 3371731, 069840004, 87595934 #### [facility] [address] [place] [address] Platelets (Bld) [#/Vol] 229.0 E9/L Normal 150. 0-500. 0 [facility] Comment on above: Performed By: #### 2 069807, 0884436, 4542308, 424791249, 16978049 #### [facility] [address] [place], [place] [address] RBC (Bld) [#/Vol] 3.7 E12/L Low 4.3-5.9 [facility] Comment on above: Performed By: #### 2 748794, 7273523, 4284595, 579178882, 93791968 #### [facility] [address] [place] [address] WBC corrected for nucl RBC Auto (Bld) [#/Vol] 6.6 E9/L Normal 4.0-11.0 [facility] Comment on above: Performed By: #### 2 955648, 8299665, 1296664, 765708568, 92505833 #### [facility] [address] [place] [address] CHEMISTRYOrdered By: SYSTEM SYSTEM on 11-01-2022 Albumin [...] for Treatmenton 10-20 Consent for Treatment [id number]#[id number]:12 7 Normal [facility] HEMATOLOGYOrdered By: SYSTEM SYSTEM on [...] 99.3 fL Normal 80.0 - 100.0 fL [facility] HemeAutoSS Platelet mean volume (Bld) [Entitic vol] 7.3 fL Normal 6.4 - 10.8 fL FT HemeAutoSS Platelets (Bld) [#/Vol] 229.0 E9/L Normal 150. 0 - 500.0 E9/L FT HemeAutoSS RBC (Bld) [#/Vol] 3.7 E12/L Low 4.3 - 5.9 E12/L FT HemeAutoSS WBC corrected for nucl RBC Auto (Bld) [#/Vol] 6.6 E9/L Normal 4.0 - 11.0 E9/L [facility] HemeAutoSS Hep Func Panelon 11-01-2022 Albumin [Mass/Vol] 3.5 g/dL Normal 3.3-5.0 [facility] Comment on above: Performed By: #### 2 092383, 8139722, 5003165, 941434455, 85155790 #### [facility] [address] [place] [address] Albumin/Globulin (S) [Mass conc ratio] 1.0 Low 1.1-2.2 [facility] Comment on above: Performed By: #### 2 600350, 1076488, 0849871, 510984376, 48799655 #### [facility] [address] [place] [address] ALP [Catalytic activity/Vol] 110 Int._Unit/L High 21-98 [facility] Comment on above: Performed By: #### 2 573502, 7044458, 0329891, 500940655, 07998748 #### [facility] [address] [place] [address] ALT No additional P-5'-P [Catalytic activity/Vol] 13 Int._Unit/L Normal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 [degF] [facility] 03-28-2022 14:09-0500 Diastolic blood pressure 77 mm[Hg] [facility] 03-28-2022 14:09-0500 Mean blood pressure 93 mm[Hg] [facility] 03-28-2022 14:09-0500 Systolic blood pressure 127 mm[Hg] [facility] 03-28-2022 14:09-0500 Blood Pressure Location [facility] 03-28-2022 14:09-0500 Body temperature 98.42 [degF] [facility] 03-28-2022 14:09-0500 Mean blood pressure 94 mm[Hg] [facility] 03-28-2022 14:09-0500 Respiratory rate 18 /min [facility] 01-18-2022 14:13-0400 Blood Pressure Location [facility] 01-18-2022 14:13-0400 Body temperature 98.06 [degF] [facility] 01-18-2022 14:13-0400 BP/Pulse Patient Position [facility] 01-18-2022 14:13-0400 Diastolic blood pressure 82 mm[Hg] [facility] 01-18-2022 14:13-0400 Heart rate 59 /min Senthilleopoldo Caldera [facility] 01-18-2022 14:13-0400 Mean blood pressure 98 mm[Hg] Senthil Caldera [facility] 01-18-2022 14:13-0400 Respiratory rate 16 /min Senthil Caldera [facility] 01-18-2022 14:13-0400 SaO2% (BldA) [Mass fraction] 98 % Senthilleopoldo Calder[facility] 01-18-2022 14:13-0400 Systolic blood pressure 131 mm[Hg] Senthil Caldera [facility] 12-21-2021 13:34-0400 Blood Pressure Location Nohemi Garcia [facility] 12-21-2021 13:34-0400 Body temperature 98.6 [degF] Nohemi [facility] 12-21-2021 13:34-0400 BP/Pulse Patient Position Nohemi Garcia [facility] 12-21-2021 13:34-0400 Diastolic blood pressure 85 mm[Hg] Nohemi [facility] 12-21-2021 13:34-0400 Heart rate 67 /min Nohemi [facility] 12-21-2021 13:34-0400 Mean blood pressure 101 mm[Hg] Nohemi [facility] 12-21-2021 13:34-0400 Respiratory rate 18 /min Nohemi Garcia [facility] 12-21-2021 13:34-0400 SaO2% (BldA) [Mass fraction] 93 % Nohemi Garcia [facility] 12-21-2021 13:34-0400 Systolic blood pressure 132 mm[Hg] Nohemi [facility] 12-21-2021 13:34-0400 Mean blood pressure 101 mm[Hg] Nohemi Garcia [facility] 11-30-2021 13:16-0400 Body temperature 98.24 [degF] Senthilleopoldo Caldera [facility] 11-30-2021 13:16-0400 Diastolic blood pressure 79 mm[Hg] Senthil Caldera [facility] 11-30-2021 13:16-0400 Heart rate 78 /min Senthilleopoldo Caldera [facility] 11-30-2021 13:16-0400 Mean blood pressure 98 mm[Hg] Senthil Caldera [facility] 11-30-2021 13:16-0400 SaO2% (BldA) [Mass fraction] 96 % [facility] 11-30-2021 13:16-0400 Systolic blood pressure 136 mm[Hg] Senthilleopoldo Caldera [facility] 11-30-2021 13:00-0400 Blood Pressure Location [facility] 11-30-2021 13:00-0400 Respiratory rate 16 /min Setnhilleopoldo Caldera [facility] 11-02-2021 11:53-0400 Blood Pressure Location Nohemi Garcia [facility] 11-02-2021 11:53-0400 Body temperature 98.06 [degF] Nohemi Garcia [facility] 11-02-2021 11:53-0400 BP/Pulse Patient Position Nohemi Garcia [facility] 11-02-2021 11:53-0400 Diastolic blood pressure 64 mm[Hg] Nohemi [facility] 11-02-2021 11:53-0400 Heart rate 64 /min Nohemi Garcia [facility] 11-02-2021 11:53-0400 Mean blood pressure 89 mm[Hg] Nohemi [facility] 11-02-2021 11:53-0400 Respiratory rate 17 /min Nohemi Garcia [facility] 11-02-2021 11:53-0400 SaO2% (BldA) [Mass fraction] 97 % Nohemi Garcia [facility] 11-02-2021 11:53-0400 Systolic blood pressure 140 mm[Hg] Nohemi Garcia [facility] 10-05-2021 13:46-0400 Body temperature 98.42 [degF] [facility] 10-05-2021 13:46-0400 Diastolic blood pressure 83 mm[Hg] [facility] 10-05-2021 13:46-0400 Heart rate 69 /min [facility] 10-05-2021 13:46-0400 Mean blood pressure 104 mm[Hg] [facility] 10-05-2021 13:46-0400 SaO2% (BldA) [Mass fraction] 96 % [facility] 10-05-2021 13:46-0400 Systolic blood pressure 146 mm[Hg] [facility] 09-07-2021 12:48-0400 Body temperature 98.6 [degF] [facility] 09-07-2021 12:48-0400 Diastolic blood pressure 70 mm[Hg] [facility] 09-07-2021 12:48-0400 Heart rate 72 /min [facility] 09-07-2021 12:48-0400 Mean blood pressure 83 mm[Hg] [facility] 09-07-2021 12:48-0400 SaO2% (BldA) [Mass fraction] 96 % Senthil Caldera [facility] 09-07-2021 12:48-0400 Systolic blood pressure 109 mm[Hg] Senthil Caldera [facility] 09-07-2021 12:00-0400 Heart rate 69 /min Senthil Caldera [facility] 09-07-2021 12:00-0400 SaO2% (BldA) [Mass fraction] 98 % Senthil Caldera [facility] 09-03-2021 00:20-0400 Body temperature 98.78 [degF] [facility] 09-03-2021 00:20-0400 Diastolic blood pressure 80 mm[Hg] [facility] 09-03-2021 00:20-0400 Heart rate 86 /min [facility] 09-03-2021 00:20-0400 Respiratory rate 16 /min [facility] 09-03-2021 00:20-0400 SaO2% (BldA) [Mass fraction] 95 % [facility] 09-03-2021 00:20-0400 Systolic blood pressure 146 mm[Hg] [facility] 08-10-2021 12:35-0400 Body temperature 98.06 [degF] Rickey [facility] 08-10-2021 12:35-0400 Diastolic blood pressure 72 mm[Hg] [facility] As[facility] 08-10-2021 12:35-0400 Heart rate 77 /min Rickey Aske[facility] 08-10-2021 12:35-0400 Mean blood pressure 84 mm[Hg] [facility] Aske[facility] 08-10-2021 12:35-0400 Respiratory rate 12 /min Rickey Askew [facility] 08-10-2021 12:35-0400 SaO2% (BldA) [Mass fraction] 97 % Rickey Aske[facility] 08-10-2021 12:35-0400 Systolic blood pressure 108 mm[Hg] Rickey Aske[facility] 07-26-2021 10:27-0400 Body temperature 97.88 [degF] [facility] 07-26-2021 10:27-0400 Diastolic blood pressure 84 mm[Hg] [facility] 07-26-2021 10:27-0400 Heart rate 59 /min [facility] 07-26-2021 10:27-0400 Mean blood pressure 112 mm[Hg] [facility] 07-26-2021 10:27-0400 SaO2% (BldA) [Mass fraction] 97 % [facility] 07-26-2021 10:27-0400 Systolic blood pressure 169 mm[Hg] [facility] 07-26-2021 10:00-0400 Respiratory rate 16 /min Senthilleopoldo Caldera [facility] 07-18-2021 12:18-0400 Body temperature 97.7 [degF] [facility] 07-18-2021 12:18-0400 Diastolic blood pressure 83 mm[Hg] [facility] 07-18-2021 12:18-0400 Heart rate 60 /min [facility] 07-18-2021 12:18-0400 Mean blood pressure 106 mm[Hg] [facility] 07-18-2021 12:18-0400 SaO2% (BldA) [Mass fraction] 98 % Senthil Caldera [facility] 07-18-2021 12:18-0400 Systolic blood pressure 152 mm[Hg] Senthil Caldera [facility] 07-18-2021 12:00-0400 Respiratory rate 16 /min Senthil Caldera [facility] 07-11-2021 10:20-0400 Body temperature 97.7 [degF] Gavino TABOR [facility] Encounters Encounter Date Encounter Type Care Provider Facility Start: 09-12-2023 End: 09-13-2023 ambulatory Senthil Hollidayjuliaflaquito Facility:[facility] Start: 09-12-2023 ambulatory Senthilleopoldo Hollidayjuliaflaquito [facility] ity:[facility] Start: 09-12-2023 End: 09-12-2023 Patient encounter procedure Senthilleopoldo Caldera [facility] Start: 08-30-2023 End: 08-30-2023 ambulatory Mary Rodriguez Facility:[facility] Start: 08-30-2023 End: 08-30-2023 ambulatory MD Mary Rodriguez Work Phone: [facility] Work Phone: Start: 08-30-2023 End: 08-30-2023 Patient encounter procedure MD Mary Rodriguez Work Phone: [facility] Work Phone: Start: 06-12-2023 End: 06-12-2023 ambulatory Senthil Caldera Facility:[facility] Start: 06-12-2023 End: 06-12-2023 Patient encounter procedure Senthil Hollidayeligio [facility] Start: 06-05-2023 Clinisync Result Encounter Mary Rodriguez [...] 05-31-2023 End: 05-31-2023 ambulatory Senthil Caldera II Facility:[facility] Start: 05-31-2023 End: 05-31-2023 ambulatory MD Mary Rodriguez Work Phone: [facility] Work Phone: Start: 05-31-2023 End: 05-31-2023 Patient encounter procedure MD Mary Rodriguez Work Phone: [facility] Work Phone: Start: 05-24-2023 Clinisync Result Encounter Mary Rodriguez MD Work Phone: [facility] Unsolicited Start: 05-24-2023 Clinisync Result Encounter Mary Rodriguez MD Work Phone: [facility] Unsolicited Start: 05-01-2023 End: 05-01-2023 ambulatory Senthil Caldera Facility:[facility] Start: 05-01-2023 End: 05-01-2023 Patient encounter procedure Senthilleopoldo Hollidayjuliaflaquito [facility] Start: 01-30-2023 End: 01-30-2023 ambulatory Senthil Caldera Facility:[facility] Start: 01-30-2023 End: 01-30-2023 Patient encounter procedure Senthilleopoldo Hollidayjuliaflaquito [facility] Start: 12-20-2022 End: 12-23-2022 Evaluation and management of inpatient Zaheer Odell Sloan Facility:[facility] Start: 12-20-2022 End: 12-23-2022 Evaluation and management of inpatient Godwinbeeendy [facility]IGHAKW[facility] Start: 12-19-2022 End: 12-20-2022 Emergency department patient visit [facility] Start: 12-17-2022 End: 12-17-2022 Emergency department patient visit Jeffery [facility] Start: 12-14-2022 End: 12-14-2022 ambulatory Sammy QUEZADA Facility:[id number] Start: 12-14-2022 End: 12-14-2022 Manual pelvic examination [facility] Start: 12-05-2022 ambulatory [employer]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 Lorie Slater Facility:[id number] Start: 11-16-2022 End: 12-16-2022 ambulatory Senthil Verenice Facility:[id number] Start: 11-16-2022 End: 12-16-2022 In-Between Visit [facility] Start: 11-06-2022 End: 11-06-2022 ambulatory Sammy PILAR Facility:[id number] Start: 11-06-2022 End: 11-06-2022 Off-Site Sammythea [facility] Start: 11-04-2022 End: 12-15-2022 ambulatory Sammy QUEZADA Facility:[facility] Start: 11-01-2022 End: 11-04-2022 ambulatory Wyatt Murray Facility:[facility] Start: 11-01-2022 End: 11-04-2022 Observation Mariia LOPE[facility] Start: 09-25-2022 End: 09-25-2022 Patient encounter procedure Senthil Caldera [facility] Start: 08-01-2022 End: 08-01-2022 Patient encounter procedure Senthil Caldera [facility] Start: 07-30-2022 End: 07-30-2022 Patient encounter procedure Senthil Caldera [facility] Start: 07-25-2022 End: 10-23-2022 Recurring Senthil Caldera [facility] Start: 07-09-2022 End: 07-09-2022 Patient encounter procedure Senthil Caldera [facility] Start: 06-06-2022 End: 06-06-2022 Patient encounter procedure Senthil Caldera [facility] Start: 03-28-2022 End: 03-28-2022 Patient encounter procedure Senthil Caldera [facility] Start: 03-17-2022 End: 06-17-2022 Recurring Nohemi Felizyuliya [facility] Start: 01-18-2022 End: 01-18-2022 Patient encounter procedure Senthil Caldera [facility] Start: 01-02-2022 End: 09-03-2022 Recurring Senthil Caldera [facility] Start: 12-26-2021 End: 12-26-2021 Patient encounter procedure Senthil Caldera [facility] Start: 12-21-2021 End: 12-21-2021 Patient encounter procedure Nohemi Felizyuliya [facility] Start: 11-30-2021 End: 11-30-2021 Patient encounter procedure Senthil Caldera [facility] Start: 11-27-2021 End: 11-27-2021 Patient encounter procedure Senthil Caldera [facility] Start: 11-25-2021 End: 02-23-2022 Recurring Nohemi Garcia [facility] Start: 11-02-2021 End: 11-02-2021 Patient encounter procedure Nohemi Garcia [facility] Start: 11-01-2021 End: 11-01-2021 Patient encounter procedure Senthil Caldera [facility] Start: 10-05-2021 End: 10-05-2021 Patient encounter procedure Snethil Caldera [facility] Start: 10-02-2021 End: 10-02-2021 Patient encounter procedure Senthil Caldera [facility] Start: 09-07-2021 End: 09-07-2021 Patient encounter procedure Senthil Caldera [facility] Start: 09-03-2021 End: 09-03-2021 Emergency department patient visit Carlos Sal[facility] Start: 08-21-2021 End: 08-21-2021 Patient encounter procedure Senthil Caldera [facility] Start: 08-21-2021 End: 08-21-2021 Patient encounter procedure Senthil Caldera [facility] Start: 08-10-2021 End: 08-10-2021 Patient encounter procedure Rickey Askew [facility] Start: 08-07-2021 End: 08-07-2021 Patient encounter procedure Senthil Caldera [facility] Start: 07-26-2021 End: 07-26-2021 Patient encounter procedure Senthil Caldera [facility] Start: 07-26-2021 End: 07-26-2021 Patient encounter procedure Senthil Caldera [facility] Start: 07-25-2021 End: 08-18-2021 Pre-admission assessment Gavino TABOR [facility] Start: 07-18-2021 End: 07-18-2021 Patient encounter procedure Senthil Caldera [facility] Start: 07-11-2021 End: 07-11-2021 Patient encounter procedure Gavino TABOR [facility] Procedures Date Procedure Procedure Detail Performing Clinician Start: 08-30-2023 Positron emission tomography with computed tomography MD Mary Rodriguez Work Phone: Start: 06-05-2023 ALL CBC WITH AUTO DIFF Mary Rodriguez MD Work Phone: Start: 05-31-2023 Positron emission tomography with computed tomography MD Mary Rodriguez Work Phone: Start: 05-31-2023 GLUCOSE POCT GLUCOMETERS Senthil J Mgeligio DO Work Phone: Start: 05-24-2023 ALL CBC WITH AUTO DIFF Mary Rodriguez MD Work Phone: Start: 07-04-2021 Core needle biopsy o f breast Gavino TABOR Comment on above: right Start: 04-10-2020 Colonoscopy Mary Rodriguez MD Work Phone: Tonsillectomy and adenoidectomy Gavino TABOR Plan of Treatment Date Care Activity Detail Author Start: 04-10-2030 Screening for malign ant neoplasm of colon [facility] Start: 01-24-2023 Hemoglobin A1c measurement Diabetes: Hemoglobin A1C [facility] Start: 12-21-2022 Influenza vaccination Influenza Vacc ine (#1) [facility] Start: 09-13-2022 Medicare Annual Well ness (AWV) Medicare Annual Wellness (AWV) [facility] Start: 07-09-1959 Glaucoma screening Diabetes: R etinopathy Screening [facility] Start: 1950 Screening for malign ant neoplasm of colon [facility] Immunizations Immunization Date Immunization Notes Care Provider Fa cility 02-13-2021 Influenza, High-dose Seasonal, Quadrivalent, Preservative Free Mary Rodriguez MD Work Phone: [facility] 02-13-2021 influenza virus vaccine, unspecified formulation Mary Rodriguez MD Work Phone: [facility] 01-20-2021 influenza virus vaccine, unspecified formulation Gavino TABOR [facility] 05-22-2019 influenza, high dose seasonal, preservative-free Mary Rodriguez MD Work Phone: [facility] 03-19-2018 influenza, high dose seasonal, preservative-free Mary Rodriguez MD Work Phone: [facility] 04-12-2017 influenza, high dose seasonal, preservative-free Mary Rodriguez MD Work Phone: [facility] 04-12-2017 pneumococcal conjuga te vaccine, 13 valent Mary Rodriguez MD Work Phone: [facility] Payers Date Payer Category Payer Self-pay 2023 Medicaid [id number] 2022 Medicare [id number] 2022 Unknown [employer] [id number] 2022-Present [address] [place] [id number] 1950 Unknown [id number] 1949 Unknown [id number] 1949 Unknown [id number] [id number] 1949 Unknown [id number] [id number] 1949 Unknown [id number] [id number] 1949 Unknown [id number] [id number] 1949 Unknown [id number] [id number] 1949 Unknown [id number] [id number] 1949 Unknown [id number] [id number] 1949 Unknown [id number] [id number] 1949 Unknown [id number] [id number] 1949 Unknown [id number] [id number] 1949 Unknown [id number] [id number] Medicare Medicare [id number] Unknown [id number] Unknown [id number] Social History Date Type Detail Facility Start: 07-04-2021 End: 09-12-2023 Tobacco smoking status Never smoked tobacco (finding) [facility] Tobacco smoking status Never [facility] Start: 10-24-2022 Sex Assigned At Female [facility] Start: 09-19-2022 Tobacco use and exposure Smokeless tobacco non-user [facility] Start: 10-24-2022 History of Social function [facility] Start: 1950 Sex Assigned At Not on file [facility] Start: 1950 Sex Assigned At Female F [facility] Functional Status Date Assessment Result Facility 12-20-2022 Functional Status No [facility] 12-20-2022 Functional Status [facility] 12-19-2022 Functional Status N/A [facility] 12-17-2022 Functional Status N/A [facility] 11-02-2022 Functional Status N/A [facility] 11-01-2022 Functional Status [facility] Clinical Notes 07-11-2021 to 06-12-2023 Note Date & Type Note Facility 06-12-2023 Hospital Discharg e instructions Follow Up Care 06/12/2023 11:56:20 With:Senthil Caldera DO, ONC Address: [address] [address] [phone] Fax Business (1) When: Unknown With:Senthil Caldera DO, ONC Address: [address] [address] [phone] Fax Business (1) When: Unknown Comments:f/u in [address] priorcbc, cmp, [id number] prior to f/u and in 2 months. [facility] 06-12-2023 Hospital Discharg e instructions Patient Education [...] high-protein foods. Preparing meals Add whole milk, vrru-sjt-kfra, or heavy cream to cereal, pudding, soup, [...] potatoes. Grains Pasta. Quick breads. Muffins. Pancakes. Krwiv-sq-iiq cereal. Meats and other proteins Peanut butter. [...] provider. Document Revised: 03/12/2021 Document Reviewed: 03/12/2021 [employer] Patient Education 2022 [employer]. 06/12/2023 11:25:57 Breast Cancer, Female Breast Cancer, [...] cancer. Follow these instructions at home: Take tsja-vrl-spesebm and prescription medicines only as told by [...] is important. Where to find more information [place] [employer]: www.cancer.org National Cancer [place]: www.cancer.gov Contact a health care provider if: [...] provider. Document Revised: 02/26/2022 Document Reviewed: 02/26/2022 [employer] Patient Education 2022 [employer]. 06/12/2023 11:25:02 Fall Prevention in the Home, Adult, Lcbl-ly-Vjof Fall Prevention in the Home, Adult Falls [...] Keep items that you use often in kwaw-zx-opjfr places. Lower the shelves around your home [...] of the way. Do not use floor monegasque or wax that makes floors slippery. What [...] Disease Control and Prevention, STEADI: www.cdc.gov National [place] on Aging: www.derrick.nih.gov Contact a doctor if: [...] provider. Document Revised: 01/08/2022 Document Reviewed: 11/09/2020 [employer] Patient Education 2022 Dopios. Follow Up Care 05/01/2023 15:02:18 With:Senthil Caldera DO, ONC Address: [address] [place] [phone] Fa[employer]halogy (1) When: Unknown Comments:cbc, cmp, iron studies, b12, foalte, epo [id number] monthly. f/u in 3 months. change arimidex to exemestane 25mg daily. pet/ct prior to f/u.make sure images from pet from may and august are both in our system for review at f/u in august. [facility] 01-30-2023 Hospital Discharg e instructions Follow Up Care 01/30/2023 15:16:04 With:Senthil Caldera Address: [address] [place] [phone] FaAhalogy (1) When: Unknown Comments:f/u in 6 wks. pet/ct in [facility] soon. f/u after. cbc, cmp, iron studies, b12, foalte, epo, [id number] prior to f/u. [facility] 12-23-2022 Evaluation + Plan note Extrac yajaira from: Title:Discharge Note Author:Zaheer Sloan DO Date:12/23/22 Discharge To, Anticipated II - Group Home Unit Transported by, Anticipated - Wheelchair van [...] When Contact Information Azar HANKS, Rickey Lynn, [address] [address] Additional Instructions: Antibiotic Medicine, Adult, Npbh-ze-Iovg Extracted from: Title:APSO Note Author:Zaheer Sloan DO [...] Ordered: Initial Hospital Care/Day Moderate 55 Minutes 43501 Sbsq Hospital Care/Day Straight Fwd 25 Minutes 52669 2. Age-related cognitive decline (R41.81: Age-related cognitive [...] visit growing greater than 100,000 gram-negative [place] licensed pharmacist's Continue antibiotics, will continue keflex due to pts hx of PNC allergy and allready took keflex Wait for culture sensitivities Ordered: Initial Hospital Care/Day Moderate 55 Minutes 67070 2. Age-related cognitive decline (R41.81: Age-related cognitive [...] Panel 10/25/22 * Comprehensive Metabolic Panel 11/22/22 [facility]09-03-2023 Hospital Discharge instructions Patient Education 12/23/2022 09:48:15 Antibiotic Medicine, Adult, Gzsd-kk-Hdoz Antibiotic Medicine, Adult Antibiotic medicines treat infections [...] medicine. Follow these instructions at home: Take tyob-pop-nngtwaa and prescription medicines as told by your [...] provider. Document Revised: 01/26/2020 Document Reviewed: 01/26/2020 [employer] Patient Education 2022 Dopios. Follow Up Care 12/20/2022 15:04:36 With:Azar HANKS, NIKOLE Benedict Address: [address] [place] [phone]- When: Unknown [facility]09-03-2023 NoteAdmission and Discharge Information Admit Date/Time:12/20/2022 16:52 [...] 39.2 % Lymph Auto - 42.1 % [place] Auto - 13.6 % Eos Auto - 2.5 % Basophil Auto - 2.6 % Neutro Absolute - 1.3 E9/L Lymph Absolute - 1.4 E9/L [place] Absolute - 0.4 E9/L Eos Absolute - [...] - 111 mg/dL POC Device SN - [id number] POC User ID - [id number] POC Username - JUAN HENNESSY CBC w/ [...] Disposition Discharge To, An (more content not included)...[facility] Comment on above:Result Comment: Electronically Signed By: Zaheer Sloan DO\Date and Time Signed: 12/23/22 09:49 [id number] NotePT evaluation completed with an AMPAC score 02/12. Pt currently requires Mod A for bed mobility andMax A x2 for STS transfers. Pt was unable to ambulate and a Max A stand pivot transfer was needed to get from bed to bedside commode. Due to pt's current cognition and functional status, would recommend SNF/ECF.[facility]09-01-2023 NoteCRM entered the room to discuss dc planning. PCP, DME and insurance discussed. Patient is alert andinvolved in plan of care. Contact information provided and whiteboard updated. Pt recently dc'd from TCU, they are unable to accept back. Call to friend Karolina, she is ok with referral to Ab. Ptwill need precert due to [employer]. Medicare Rights form reviewed with friend Karolina (JUAREZ) over the phone. Call to dtr Helen [phone] and she is agreeable to any SNF. ANt dc TBD. Karolina says they will be able to provide pt's chemo to facility.[facility]:Result Comment: Electronically Signed By: Brooklynn Connor\Date and Time Signed: 12/21/22 11:15 [id number] NoteBasic Information Admit Date/Time:12/20/2022 16:52 Chief Complaint [facility] dys[facility] and weakness. Pt states she was here earlier and has only taken one of the ATBs. History of Present Illness Eulc73-wqxl-pqp female with past medical history of breast [...] her are currently trying to get into [facility]. They are on a waiting list. Per [...] as well and was recently admitted to [facility] and signed herself out as well as [...] 15:45:00) Lymph Auto: 28.4 % (12/20/22 15:45:00) [place]ando[place] Auto: 12.5 % (12/20/22 15:45:00) Eos Auto: 1.3 % (12/20/22 15:45:00) Basophil Auto: 3.5 % High (12/20/22 15:45:00) Neutro Absolute: 2.1 E9/L (12/20/22 15:45:00) Lymph Absolute: 1.1 E9/L (12/20/22 15:45:00) Shenandoah Absolute: 0.5 E9/L (12/20/22 15:45:00) Eos Absolute: [...] 10.2 pg/mL (12/20/22 18:40:00) (more content not included)...[facility]:Result Comment: Electronically Signed By: Nathalia LUDWIG, Zaheer Song.br\Date and Time Signed: 12/20/22 19:18 [id number] Evaluation + Plan noteExtracted from: Title:ED Note Author:Ran HANKS, David Date: 1. Generalized weakness (R53 .1: Weakness) 2. Frequent falls (R29.6: Repeated falls) 3. Anemia (D64.9: Anemia, unspecified) 4. Dehydration (E86.0: Dehydration) 5. Urinary tract infection (N39.0: Urinary tract infection, site not specified) Orders: cephalexin, 500 mg = 1 cap(s), Oral, QID, X 7 day(s), # 28 cap(s), Refills(s) 0, Pharmacy: [email or web address], 167.6, cm, 12/19/22 20:43:00 EDT, Height/Length [...] Panel 10/25/22 * Comprehensive Metabolic Panel 11/22/22 [facility]08-31-2023 Hospital Discharge instructions Patient Education 12/20/2022 00:37:19 Urinary Tract Infection, Adult, Kvid-ii-Syfn Urinary Tract Infection, Adult A urinary tract [...] Follow these instructions at home: Medicines Take qgbr-nkf-exfiinb and prescription medicines only as told by [...] provider. Document Revised: 11/18/2020 Document Reviewed: 11/18/2020 [employer] Patient Education 2022 Dopios. 12/20/2022 00:37:19 Anemia Anemia Anemia is a [...] spleen. Follow these instructions at home: Take fsau-egh-sotqkcj and prescription medicines only as told by [...] provider. Document Revised: 02/20/2022 Document Reviewed: 03/15/2020 [employer] Patient Education 2022 Dopios. 12/20/2022 00:37:19 Dehydration, Adult, Preg-um-Hhiv Dehydration, Adult Dehydration is condition in which [...] of fat or sugar. General instructions Take edod-rdf-casediu and prescription medicines only as told by [...] start slowly drinking other clear fluids. Take eohg-clu-qxtetzf and prescription medicines only as told by your doctor. Get help right away if you have any symptoms of very bad dehydration. This information is not intended to replace advice given to you by your health care provider. Make sure you discuss any questions you have with your health care provider. Document Revised: 11/19/2019 Document Reviewed: 11/19/2019 [employer] Patient Education 2022 Dopios. Follow Up Care 12/19/2022 20:39:35 With:Rickey Askew Address: [place] [address] Business (1) When:12/21/2022 [facility]08-28-2023 Hospital Discharge instructions Patient Education 12/17/2022 13:33:49 [...] Follow these instructions at home: Medicines Take ibnb-evn-tbehaen and prescription medicines only as told by [...] as fried or sweet foods. ?Take an yxev-ebi-vcwzcsb or prescription medicine for constipation. If you [...] provider. Document Revised: 02/05/2022 Document Reviewed: 02/05/2022 [employer] Patient Education 2022 Dopios. Follow Up Care 12/17/2022 10:20:15 With:JOSÉ ANTONIO VARGAS Address: [address] [place] [phone] Business (1) When:12/20/2022 12:53:13 With:Gavino Lugo Address: [address] [place] [address] Business (1) When:12/20/2022 12:52:03 With:Rickey Askew Address: [address] [place] [address] Business (1) When:12/20/2022 12:51:59 [facility]08-28-2023 Evaluation + Plan noteExtracted from: Title:ED Note Author:Gui Scruggs PA-C te:12/17/22 Fall (W19.XXXA: Unspecified fall, initial encounter) Lumbar compression fracture (S32.000A: Wedge compression fracture of unspecified lumbar vertebra, initial encounter for closed fracture) Ordered: oxycodone, 5 mg = 1 tab(s), Oral, q6hr, X 3 day(s), # 15 tab(s), Refills(s) 0, Pharmacy: [email or web address], 168, cm, 12/17/22 10:29:00 EDT, Height/Length [...] Panel 10/25/22 * Comprehensive Metabolic Panel 11/22/22 [facility]07-18-2023 NoteHOSPITAL REGULATIONS: All Positive and Important Negative [...] THROUGH Gavino Lugo D.O. ls Dictated: 11/02/2022 [id number] Transcribed: 11/02/2022 cc:Rickey Askew M.D.[facility]Comment on above:Result Comment: Electronically Signed By: Gavino Lugo DO\.br\Date and Time Signed: 11/06/22 07:17 [id number] NoteHOSPITAL REGULATIONS: All Positive and Important Negative [...] going to rehabilitation. Her friend from the [place] area, which is her old neighbor, was [...] Nursing staff as well as friend from [place] is present. She has bruising to the [...] of infection. Social Service for rehabilitation placement [facility]. Orthopedics to sign off with follow up in the office in 4 weeks for a repeat x-ray examination of the pelvis. She voiced a verbal understanding and her friend from [place] is present. Ivett Palacio Dictated: 11/05/2022 [id number] Transcribed: 11/05/2022 cc:Rickey Askew M.D.[facility] on above:Result Comment: Electronically Signed By: Gavino Lugo DO\.br\Date and Time Signed: 11/06/22 07:17 [id number] Hospital Discharge instructions Patient Education 11/04/2022 12:28:31 [...] Consider working with a physical therapist or customer trainer who can develop an exercise plan to help you gain muscle strength. General instructions Take igfr-qhi-yfacqvs and prescription medicines only as told by [...] provider. Document Revised: 03/11/2022 Document Reviewed: 03/11/2022 [employer] Patient Education 2022 Dopios. Follow Up Care 11/01/2022 19:54:24 With:Hollis MERRILL Address: [address] [phone] Business (1) When: Unknown Comments:Urinary retnetion w/dooley With:Gavino Lugo Address: [address] [place] [address]- Business (1) When: Unknown Comments:Call for followup appointment in 4 weeks for repeat pelvis xray With:Rickey Askew Address: [address] [place] [phone] Business (1) When: Unknown [facility]07-16-2023 Evaluation + Plan noteExtracted from: Title:Discharge Note Author:Trevor HANKS, Wyatt Lynn ate:11/04/22 Stable Discharge To, Anticipated II - Group Home Unit Discharged to - assisted unit Discharge Diet(s): Regular (11/02/22 15:25:00) Prescriptions anastrozole 1 mg Tab, 1 mg= 1 tab(s), Oral, Daily, 11 refills Arimidex 1 mg Tab, 1 mg= 1 tab(s), Oral, Daily, 3 refills ergocalciferol 50,000 intl units Cap, 16275 International_Unit= 1 cap(s), Oral, q7day Kisqali (200 [...] bedtime) With When Contact Information Gavino Lugo [address] [place] [address]- Business (1) Additional Instructions: Call for followup appointment in 4 weeks for repeat pelvis xray Rickey Askew In 0 days [address] [facility] [place] [address] [facility] (1) Additional Instructions: Addendum by Trevor HANKS, m ad on November 04, 2022 12:36:52 EDT [...] deep vein thrombosis (DVT) prophylaxis (Z79.899: Other fdc (current) drug therapy) SCD, enoxaparin Orders: acetaminophen, [...] Panel 10/25/22 * Comprehensive Metabolic Panel 11/22/22 [facility]07-16-2023 NoteAdmission and Discharge Information Admitting Physician - [...] therapy and they deemed her appropriate for [facility]. [facility] and will be discharged there. On [...] 65.9 % Lymph Auto - 24.6 % [place]ando[place] Auto - 5.0 % Eos Auto - 3.3 % Basophil Auto - 1.2 % Neutro Absolute - 4.4 E9/L Lymph Absolute - 1.6 E9/L [place] Absolute - 0.3 E9/L Eos Absolute - [...] Discharge Disposition Discharge To, Anticipated II - Group Home Unit Discharged to - assisted unit Discharge Diet Discharge Diet(s): Regular (11/02/22 15:25:00) Discharge Medication List Prescriptions anastrozole 1 mg Tab (more content not included)...[facility] Comment on above:Result Comment: Electronically Signed By: Trevor HANKS, Wyatt\.br\Date and Time Signed: 11/04/22 12:37 [id number] NotePT Evaluation done this date. Pt. with 12/13 on AM-PAC this date. She is very resistant to movement due to pain. She is unable to stand even with attempts of max A. Will benefit from SNF.[facility]07-14-2023 NoteChief Complaint pt to ED [facility] with c/o chest bruise from fall earlier today. c/o increasing weakness. denies thinners or hitting head with earlier fall. denies PMH. hx of DM. pt A&Ox4 upon ED arrival, applied to cardiac surgeon. History of Present Illness Patient is a [...] 99.3 fL (11/01/22 22:01:00) MCH: 32.9 pg (11/01/22::00) MCHC: 33.1 gm/dL (11/01/22::00) RDW: 16.3 % High (11/01/22::00) Platelet: 229 E9/L (11/01/22::00) MPV: 7.3 fL (11/01/22::00) Neutro Auto: 65.9 % (11/01/22::00) Lymph Auto: 24.6 % (11/01/22::00) Shenandoah Auto: 5 % (11/01/22::00) Eos Auto: 3.3 % (11/01/22::) Basophil Auto: 1.2 % (11/01/22::) Neutro Absolute: 4.4 E9/L (11/01/22::00) Lymph Absolute: 1.6 E9/L (11/01/22::00) [place] Absolute: 0.3 E9/L (11/01/22::00) Eos Absolute: 0.2 [...] 15 mEq/L (11/01/22::00) Calcium Lvl: 9.1 mg/dL (11/01/22 22:01:00) Alk Phos: 110 Int._Unit/L High (11/01/22 22:01:00) ALT: 13 Int._Unit/L (11/01/22 22:01:00) AST: 20 Int._Unit/L (11/01/22 22:01:00) Total Protein: 6.9 gm/dL (11/01/22 22:01:00) Albumin Lvl: 3.5 gm/dL (11/01/22 22:01:00) Globulin: 3.4 gm/dL (11/01/22 22:01:00) A/G Ratio: 1 Low (11/01/22::00) Bili Total: 0.9 mg/dL (11/01/22 22:01:00) Bili Direct: 0.2 mg/dL (11/01/22 22::00) Bili Indirect: 0.7 mg/dL (11/01/22 22:01:00) Troponin: [...] NEGATIVE1 (11/01/22 23:20:00) UA RBC: 21-30 Abnormal (07/13/23 23:20:00) UA Squam Epithelial: 0-2 (11/01/22 23:20:00) [...] medications once reconciled. Hydralazine (more content not included)...[facility]:Result Comment: Electronically Signed By: Mariia LOPEZ DO\Date and Time Signed: 11/02/22 01:35 [id number] Hospital Discharge instructions Follow Up Care 09/27/2022 14:06:46 With:Senthil Caldera Address: [address] [phone] Fax Business (1) When: Unknown Comments:f/u in 3 months. pet/ct prior to f/u. cont arimidex and kisquali. cbc, cmp and [id number] monthly. [facility]02-15-2023 Hospital Discharge instructions Follow Up Care 06/06/2022 13:40:28 With:Senthil Caldera Address: [address] [phone] Fax Business (1) When: Unknown Comments:cbc, cmp, [id number] in 4 weeks and prior to f/u in 8 weeks. f/u with refinish technician. iron studies, b12, folate with next labs. [facility]12-07-2022 Hospital Discharge instructions Follow Up Care 03/28/2022 14:49:31 With:Senthil Caldera Address: [address] [phone] Fax Business (1) When: Unknown Comments:f/u in 2 months. pet/ct prior to f/ucbc, cmp, [id number], every 6 weeks. [facility]09-29-2022 Hospital Discharge instructions Follow Up Care 01/18/2022 14:52:57 With:Senthil Caldera Address: [place] [phone] Fax Business (1) When: Unknown Comments:raise kisquali to 400mg for 3wks on and 1 week off. f/u with or anthony in 2 months. cbc, cmp, [id number] prior to f/ucbc, cmp monthly onthis medicaztion cont arimidex. [facility]09-01-2022 Hospital Discharge instructions Follow Up Care 12/21/2021 14:19:38 With:Senthil Caldera Address: [address] [phone] Fax Business (1) When: Unknown Comments:continue Kisqali 200mg 3wks on, 1wk offcbc, cmp in 4wks and 8wksPET scan in Novfollow-up in 8wks with Dr. Hernandez after PET scan [facility]08-11-2022 Hospital Discharge instructions Follow Up Care 11/30/2021 13:55:25 With:Senthil Caldera Address: [address] [phone] Fax Business (1) When: Unknown Comments:re-start kisqali at 200mg daily x 3 weeks, then 1 week offcmp weekly x 4wksfollow-up with Dr. Hernandez in 4wkscbc, cmp at follow-up [facility]07-14-2022 Hospital Discharge instructions Follow Up Care 11/02/2021 12:27:30 With:Senthil Caldera Address: [place] [phone] Fax Business (1) When: Unknown Comments:cont arimidex. Hold kisquali for 3 wks, recheck cbc, cmp, prior to f/u. hold lasix. Send this note to Dr. Kirby please. [facility]06-16-2022 Hospital Discharge instructions Follow Up Care 10/05/2021 14:21:47 With:Senthil Caldera Address: [facility] [address] [place] [phone] Fax Business (1) When: Unknown Comments:continue kisqalifollow-up in 1mocbc, cmp at follow-up [facility]05-19-2022 Hospital Discharge instructions Follow Up Care 09/07/2021 13:41:37 With:Senthil Caldera Address: [facility] [address] [place] [phone] Fax Business (1) When: Unknown Comments:continue Kisqali follow-up in 1 mocbc, cmp, [id number] at follow-up [facility]05-15-2022 Evaluation + Plan noteExtracted from: Title:ED Note [...] Location:FT.ONCOLOGY Appointment Type:ONC Office Visit 15 (FT) [facility]05-15-2022 Hospital Discharge instructions Patient Education 09/03/2021 00:46:59 [...] instructions at home: Medicines Take and apply sims-elh-pbfejwy and prescription medicines only as told by [...] what causes your hives. Take and apply ldau-wqa-ybtfpml and prescription medicines only as told by your health care provider. Keep all follow-up visits as told by your health care provider. This is important. This information is not intended to replace advice given to you by your health care provider. Make sure you discuss any questions you have with your health care provider. Document Released: 04/08/2006 Document Revised: 10/22/2018 Document Reviewed: 10/22/2018 [employer] Patient Education 2020 Dopios. Follow Up Care 09/03/2021 00:14:38 With:Rickey Askew Address: [address] [place] [phone]- Business (1) When:Within 3 Day(s) [facility]04-21-2022 Hospital Discharge instructions Follow Up Care 08/10/2021 13:38:09 With:Nohemi Garcia Address: [place] [phone] Business (1) When: Unknown Comments:f/u 1 monthcont acsquali.cbc, cmp, [id number] at f/u. With:Senthil Caldera Address: [place] [address]- [phone] Fax Business (1) When: Unknown [facility]04-05-2022 Hospital Discharge instructions Follow Up Care 07/25/2021 15:46:11 With:Senthil Caldera Address: [place] [address]- [phone] Fax Business (1) When: Unknown Comments:f/u in 2 wks, cbc, cmp, [id number] at f/u. [facility]03-[facility]-20[facility] Hospital Discharge instructions Follow Up Care 07/11/2021 14:05:16 With:Senthil Caldera Address: [address] [phone] Fax Business (1) When: Unknown Comments:echo and bailee sooni will call Dr. Tabor. f/u with me in 2 wks plan AC. Cbc, cmp, ceapet/ct prior to f/u. [facility] Future Appointments Appointment Date:07/18/2021 12:00:00 PM Scheduled Provider:Senthil Caldera DO Location:.ONCOLOGY Appointment Type:ONC Office Visit New 45 (FT) [facility] Suring Evaluation + Plan note Future Appointments Appointment Date:08/08/2021 10:00:00 AM Scheduled Provider: [facility]:US Breast (FT) Appointment Date:08/09/2021 10:30:00 AM Scheduled Provider: Location:[facility] Appointment Type:Surgical PAT FT Appointment Date:08/10/2021 12:30:00 PM Scheduled Provider:Senthil Caldera DO [facility] Type:[facility]C Office Visit 15 (FT) Appointment Date:08/17/2021 08:00:00 AM Scheduled Provider: Location:[facility] Appointment Type:Surgery FT Appointment Date:08/22/2021 10:20:00 AM Scheduled Provider:Gavino TABOR MD Location:[facility] Appointment Type:GS Post Op 15 Future Scheduled Tests Laboratory* CA 27 29 08/09/21 * CBC w/ Auto Diff 08/09/21 * CBC w/ Auto Diff 07/26/21 * CEA 07/26/21 * Comprehensive Metabolic Panel 08/09/21 * Comprehensive Metabolic Panel 07/26/21 Radiology* US Perc Biopsy Lymph Node 08/08/21 [facility] Future Appointments Appointment Date:08/10/2021 12:30:00 PM Scheduled Provider:Senthil Caldera DO Location:.ONCOLOGY Appointment Type:ONC Office Visit 15 (FT) Diagnostic Tests Pending * CA 27 29 08/07/21 Future Scheduled Tests Laboratory* CBC w/ Auto Diff 07/26/21 * CEA 07/26/21 * Comprehensive Metabolic Panel 07/26/21 [facility] Future Appointments Appointment Date:08/10/2021 12:30:00 PM Scheduled Provider:Senthil Caldera DO Location:FT.ONCOLOGY Appointment Type:ONC Office Visit 15 (FT) Future Scheduled Tests Laboratory* CBC w/ Auto Diff 07/26/21 * CEA 07/26/21 * Comprehensive Metabolic Panel 07/26/21 [facility] Future Appointments Appointment Date:09/07/2021 12:30:00 PM Scheduled Provider:Senthil Caldera DO Location:FT.ONCOLOGY Appointment Type:ONC Office Visit 15 (FT) Future Scheduled Tests Laboratory* CBC w/ Auto Diff 08/24/21 * CEA 08/24/21 * Comprehensive Metabolic Panel 08/24/21 [facility] Future Appointments Appointment Date:08/21/2021 02:00:00 PM Scheduled Provider: Location:FT.ONCOLOGY Appointment Type:ONC Patient Education - 1hr (FT) Appointment Date:09/07/2021 12:30:00 PM Scheduled Provider:Senthil Caldera DO Location:FT.ONCOLOGY Appointment Type:ONC Office Visit 15 (FT) Future Scheduled Tests Laboratory* CBC w/ Auto Diff 09/07/21 * CEA 09/07/21 * Comprehensive Metabolic Panel 09/07/21 [facility] Future Appointments Appointment Date:09/07/2021 12:30:00 PM Scheduled Provider:Senthil Caldera DO Location:FT.ONCOLOGY Appointment Type:ONC Office Visit 15 (FT) [facility] Future Appointments Appointment Date:10/05/2021 01:30:00 PM Scheduled Provider:Senthil Caldera DO Location:FT.ONCOLOGY Appointment Type:ONC Office Visit 15 (FT) Future Scheduled Tests Laboratory* CA 27 29 10/08/21 * CBC w/ Auto Diff 10/08/21 * Comprehensive Metabolic Panel 10/08/21 [facility] Future Appointments Appointment Date:10/05/2021 01:30:00 PM Scheduled Provider:Senthil Caldera DO Location:FT.ONCOLOGY Appointment Type:ONC Office Visit 15 (FT) Diagnostic Tests Pending * CA 27 29 10/02/21 [facility] Future Appointments Appointment Date:11/02/2021 01:45:00 PM Scheduled Provider:Senthil Caldera DO Location:FT.ONCOLOGY Appointment Type:ONC Office Visit 15 (FT) Future Scheduled Tests Laboratory* CA 27 29 11/02/21 * CBC w/ Auto Diff 11/02/21 * Comprehensive Metabolic Panel 11/02/21 [facility] Future Appointments Appointment Date:11/02/2021 11:15:00 AM Scheduled Provider:Nohemi Garland Location:FT.ONCOLOGY Appointment Type:ONC Office Visit 15 (FT) Diagnostic Tests Pending * CA 27 29 11/01/21 [facility] Future Appointments Appointment Date:11/30/2021 01:15:00 PM Scheduled Provider:Senthil Caldera DO Location:FT.ONCOLOGY Appointment Type:ONC Office Visit 15 (FT) Future Scheduled Tests Laboratory* CBC w/ Auto Diff 12/03/21 * Comprehensive Metabolic Panel 12/03/21 [facility] Future Appointments Appointment Date:11/30/2021 01:15:00 PM Scheduled Provider:Senthil Caldera DO Location:FT.ONCOLOGY Appointment Type:ONC Office Visit 15 (FT) [facility] Future Appointments Appointment Date:12/21/2021 01:15:00 PM Scheduled Provider:Senthil Caldera DO Location:FT.ONCOLOGY Appointment Type:ONC Office Visit 15 (FT) Future Scheduled Tests Laboratory* CBC w/ Auto Diff 12/21/21 * Comprehensive Metabolic Panel 12/21/21 [facility] Future Appointments Appointment Date:01/18/2022 [...] Panel 01/18/22 * Comprehensive [facility]ments Appointment Date:01/18/2022 [...] Panel 01/18/22 * Comprehensive Metabolic [facility]ments Appointment Date:03/28/2022 [...] Panel 02/06/22 * Comprehensive Metabolic [facility]22 [facility] App[facility]ments Appointment Date:03/28/2022 02:15:00 PM Scheduled Provider:Senthil Caldera DO Location:.ONCOLOGY Appointment Type:ONC Office Visit 15 (FT) Future Scheduled Tests Laboratory* CBC w/ Auto Diff 03/08/22 * CBC w/ Auto Diff 04/05/22 * Comprehensive Metabolic Panel 03/08/22 * Comprehensive Metabolic [facility]22 [facility]ments Appointment Date:06/06/2022 01:15:00 PM Scheduled Provider:Senthil Caldera DO [facility] (FT) [facility] Future Appointments Appointment Date:08/01/2022 02:00:00 PM Scheduled Provider:Senthil Caldera DO Location:.ONCOLOGY Appointment Type:ONC Office Visit 15 (FT) Future Scheduled Tests Laboratory* CBC w/ Auto Diff 06/06/22 * Comprehensive Metabolic Panel [facility]06[facility]22 [facility] App[facility]ments Appointment Date:08/01/2022 02:00:00 PM Scheduled Provider:Senthil Caldera DO Location:FT.ONCOLOGY Appointment Type:ONC Office Visit 15 (FT) Diagnostic Tests Pending * CA 27 29 07/09/22 Future Scheduled Tests Laboratory* CA 27 29 07/31/22 * CBC w/ Auto Diff 07/31/22 * Comprehensive Metabolic Panel [facility]/22 [facility]ments Appointment Date:08/01/2022 02:00:00 PM Scheduled Provider:Senthil Caldera DO Location:.ONCOLOGY Appointment Type:ONC Office Visit 15 (FT) Diagnostic Tests Pending * CA 27 29 07/30/22 [facility] Future Appointments Appointment Date:09/27/2022 [...] Transferrin 08/29/22 * Vitamin B12 Level 08/29/22 [facility] App[facility]ments Appointment Date:09/27/2022 01:45:00 PM Scheduled Provider:Nohemi Garland Location:FT.ONCOLOGY Appointment Type:ONC Office Visit 30 (FT) Diagnostic Tests Pending * CA 27 29 09/25/22 [facility] Future Appointments Appointment Date:11/22/2022 02:15:00 PM Scheduled Provider:Senthil Caldera DO Location:FT.ONCOLOGY Appointment Type:ONC Office Visit 15 (FT) Future Scheduled Tests Laboratory* CA 27 29 10/25/22 * CA 27 29 11/22/22 * CBC w/ Auto Diff 10/25/22 * CBC w/ Auto Diff 11/22/22 * Comprehensive Metabolic Panel 10/25/22 * Comprehensive Metabolic Panel [facility]/22/22 [facility] Appointments Appointment Date:12/26/2022 02:45:00 PM Scheduled Provider:Senthil Caldera DO Location:FT.ONCOLOGY Appointment Type:ONC Office Visit 15 (FT) Future Scheduled Tests Laboratory* CA 27 29 10/25/22 * CA 27 29 11/22/22 * CBC w/ Auto Diff 10/25/22 * CBC w/ Auto Diff 11/22/22 * Comprehensive Metabolic Panel 10/25/22 * Comprehensive Metabolic Panel 11/22/22 [facility] Evaluation + Plan note Future [...] Panel 04/01/23 * Comprehensive Metabolic Panel 05/02/23 [facility]ments Appointment Date:06/12/2023 [...] Panel 04/01/23 * [facility] [...] Transferrin 09/12/23 * Vitamin B12 Level 09/12/23 [facility] Future App[facility]ments Appointment Date:01/09/2024 [...] Panel 12/26/23 * CA 27 29 12/26/23 [facility] note[facility] information available [facility] Work Phone: Hospital course Narrative No data available for this section [facility] Discharge instructions No data available for this section [facility] Suring Progress note No data available for this section [facility] Summary Purpose Family History No Family History [...] section and content) DATE CREATED AUTHOR 09/08/2021 [facility] DATE CREATED AUTHOR AUTHOR'S ORGANIZ ATION 09/11/2023 [facility] DATE CREATED AUTHOR AUTHOR'S ORGANIZ ATION 09/14/2023 [facility] DATE CREATED AUTHOR AUTHOR'S ORGANIZ ATION 09/15/2023 [facility] DATE CREATED AUTHOR AUTHOR'S ORGANIZ ATION 09/30/2023 [facility] DATE CREATED AUTHOR AUTHOR'S ORGANIZ ATION 10/05/2023 [facility] Care Team (unrecognized sect ion and content) Flight Attendant Inflight Services Relationship Specialty Start Date End Date Rickey Askew MD [address] [place] [address] PCP - Devoted 06/20/22 Rickey Askew MD [address] [place] [address] PCP - General Family Medicine 09/19/22 Team [...] BE BASED ON THE PRIMARY CLINICAL RECORDS. [employer] provides no warranty or guarantee of the accuracy or completeness of information in this document.
[2023-11-25 12:37] LABS: Basophils Absolute Auto 0.1 10^3/uL (0.0-0.1); Basophils Percent Auto 2.1 % (0.2-2.0); Eosinophils Absolute Auto 0.2 10^3/uL (0.0-0.7); Hematocrit 31.2 % (36.0-48.0); Hemoglobin 10.3 g/dL (12.0-16.0); Immature Granulocytes Abs Auto 0.03 10^3/uL (0.00-0.03); Immature Granulocytes Pct Auto 0.6 % (0.0-0.5); Lymphocytes Absolute Auto 1.8 10^3/uL (1.2-3.8); Lymphocytes Percent Auto 36.7 % (20.5-60.0); Mean Corpuscular Hemoglobin 33.9 pg (26.7-34.0); Mean Corpuscular Volume 102.6 fL (81.0-99.0); Mean Platelet Volume 9.4 fL (9.5-13.5); Monocytes Absolute Auto 0.3 10^3/uL (0.3-0.8); Monocytes Percent Auto 6.7 % (1.7-12.0); Neutrophils Absolute Auto 2.4 10^3/uL (1.4-6.5); Neutrophils Percent Auto 49.9 % (43.0-75.0); Platelet Count 189 10^3/uL (150-450); Red Blood Count 3.04 10^6/uL (4.20-5.40); Red Cell Distribution Width 13.9 % (11.0-15.0); White Blood Count 4.8 10^3/uL (4.0-11.0)
[2023-11-25 12:48] LABS: Alanine Aminotransferase 17 U/L (14-59); Albumin Globulin Ratio 0.8; Albumin Level 2.8 g/dL (3.4-5.0); Alkaline Phosphatase 135 U/L (46-116); Anion Gap 13.1; Aspartate Amino Transferase 10 U/L (15-37); BUN Creatinine Ratio 26.1; Bilirubin Total 0.3 mg/dL (0.2-1.0); Calcium 8.7 mg/dL (8.5-10.1); Carbon Dioxide 24.2 mmol/L (21.0-32.0); Chloride 108 mmol/L (98-107); Estimated GFR (African America 40 (>=60); Estimated GFR (Non-African Ame 33 (>=60); Globulin 3.5 g/dL; Glucose 213 mg/dL (74-106); Potassium 4.3 mmol/L (3.5-5.1); Sodium 141 mmol/L (136-145); Total Protein 6.3 g/dL (6.4-8.2)
== END 2023-11-25 11:07 | disposition home or self-care (01) ==
LOC: LAB 11:06
PROVIDERS: PCP Family Medicine; Visit Provider Family Medicine
DX: Z51.81 Encounter for therapeutic drug level monitoring (principal); E53.8 Deficiency of other specified B group vitamins
CPT/HCPCS: 36415; 80053; 82607; 85025; 86300

== ENCOUNTER 2023-12-25 03:02 | Outpatient (RCR) | payer OTHER, MEDICAID, SELFPAY ==
[2023-12-27 10:50] LABS: Basophils Absolute Auto 0.1 10^3/uL (0.0-0.1); Basophils Percent Auto 2.8 % (0.2-2.0); Eosinophils Absolute Auto 0.2 10^3/uL (0.0-0.7); Eosinophils Percent Auto 4.9 % (0.9-7.0); Hemoglobin 9.9 g/dL (12.0-16.0); Immature Granulocytes Abs Auto 0.03 10^3/uL (0.00-0.03); Immature Granulocytes Pct Auto 0.8 % (0.0-0.5); Lymphocytes Absolute Auto 1.3 10^3/uL (1.2-3.8); Lymphocytes Percent Auto 32.5 % (20.5-60.0); Mean Corpuscular Hemoglobin 34.1 pg (26.7-34.0); Mean Corpuscular Volume 103.4 fL (81.0-99.0); Mean Platelet Volume 9.3 fL (9.5-13.5); Monocytes Absolute Auto 0.3 10^3/uL (0.3-0.8); Monocytes Percent Auto 7.4 % (1.7-12.0); Neutrophils Percent Auto 51.6 % (43.0-75.0); Platelet Count 194 10^3/uL (150-450); White Blood Count 3.9 10^3/uL (4.0-11.0)
== END 2024-01-20 15:12 | disposition home or self-care (01) ==
LOC: LAB 03:02
PROVIDERS: PCP Family Medicine; Visit Provider Family Medicine
DX: I10 Essential (primary) hypertension (principal); C50.411 Malignant neoplasm of upper-outer quadrant of right female breast; E66.9 Obesity, unspecified
CPT/HCPCS: 36415; 85025

== ENCOUNTER 2024-01-01 05:11 | Outpatient (RCR) | payer OTHER, MEDICAID, SELFPAY ==
[2024-01-01 10:29] LABS: Basophils Absolute Auto 0.1 10^3/uL (0.0-0.1); Basophils Percent Auto 2.7 % (0.2-2.0); Eosinophils Absolute Auto 0.1 10^3/uL (0.0-0.7); Eosinophils Percent Auto 3.5 % (0.9-7.0); Hematocrit 32.2 % (36.0-48.0); Hemoglobin 10.3 g/dL (12.0-16.0); Immature Granulocytes Abs Auto 0.03 10^3/uL (0.00-0.03); Immature Granulocytes Pct Auto 0.7 % (0.0-0.5); Lymphocytes Absolute Auto 1.4 10^3/uL (1.2-3.8); Lymphocytes Percent Auto 33.9 % (20.5-60.0); Mean Corpuscular Hemoglobin 33.3 pg (26.7-34.0); Mean Corpuscular Volume 104.2 fL (81.0-99.0); Mean Platelet Volume 9.3 fL (9.5-13.5); Monocytes Absolute Auto 0.3 10^3/uL (0.3-0.8); Monocytes Percent Auto 6.2 % (1.7-12.0); Neutrophils Absolute Auto 2.1 10^3/uL (1.4-6.5); Platelet Count 210 10^3/uL (150-450); Red Blood Count 3.09 10^6/uL (4.20-5.40); Red Cell Distribution Width 13.6 % (11.0-15.0)
[2024-01-01 11:23] LABS: Alanine Aminotransferase 16 U/L (14-59); Albumin Globulin Ratio 0.9; Albumin Level 2.9 g/dL (3.4-5.0); Alkaline Phosphatase 160 U/L (46-116); Anion Gap 14.1; Aspartate Amino Transferase 12 U/L (15-37); BUN Creatinine Ratio 28.3; Bilirubin Total 0.3 mg/dL (0.2-1.0); Calcium 8.8 mg/dL (8.5-10.1); Carbon Dioxide 22.4 mmol/L (21.0-32.0); Chloride 110 mmol/L (98-107); Estimated GFR (African America 53 (>=60); Estimated GFR (Non-African Ame 44 (>=60); Globulin 3.3 g/dL; Glucose 155 mg/dL (74-106); Potassium 4.5 mmol/L (3.5-5.1); Sodium 142 mmol/L (136-145); Total Protein 6.2 g/dL (6.4-8.2)
== END 2024-01-20 12:40 | disposition home or self-care (01) ==
LOC: LAB 05:11
PROVIDERS: PCP Family Medicine; Visit Provider Family Medicine
DX: Z51.81 Encounter for therapeutic drug level monitoring (principal); C50.919 Malignant neoplasm of unspecified site of unspecified female breast
CPT/HCPCS: 36415; 80053; 85025; 86300

== ENCOUNTER 2025-01-27 11:58 | Outpatient (REF) | payer OTHER, MEDICAID, SELFPAY ==
--- OUTSIDE RECORDS SUMMARY | 2025-01-27 12:01 | XMS_ITS | Continuity of Care Document ---
Author Organization [facility] Address [address] [place] [address] Care Team Providers Care Engineering Coordinator Name Role Phone Mary Rodriguez MD Attending Physician Medications Medication Frequency Instructions Diagnosis Start Date End Date Last Administered acetaminophen 500 mg tablet Every 6 Hours - PRN 2 tablets, ORAL, Every 6 Hours - PRN, Give 2 tablet by mouth every 6 hours as needed for pain (2 [id number]) 01/24/2025 08:30 AM acetaminophen 325 mg tablet,chewable Every 6 Hours - PRN 2 tablets, oral, Every 6 Hours - PRN, FOR FEVER ascorbic acid (vitamin C) 500 mg tablet Once A Day 1 tablet, oral, Once A Day D50.9 : Iron deficiency anemia, unspecified 024 01/26/2025 08:41 AM buspirone 5 mg tablet Twice A Day 5 mg, oral, Twice A Day F41.9 : Anxiety disorder, unspecified 01/26/2025 09:08 PM cholecalciferol (vitamin D3) 50 mcg (2,000 unit) tablet Every day 1 tablet, ORAL, Every day, Give 1 tablet by mouth one time a day for supplement 01/26/2025 08:41 AM docusate sodium 100 mg capsule Twice a day 1 capsule, ORAL, Twice a day, Give 1 capsule by mouth two times a day for constipation 01/26/2025 09:08 PM ferrous sulfate 325 mg (65 mg iron) tablet Once A Day 1 tablet, oral, Once A Day D50.9 : Iron deficiency anemia, unspecified 01/26/2025 08:41 AM Kisqali (ribociclib) 600 mg/day (200 mg x 3) tablet Once A Day Give 21 Days Hold 7 Days 3 tablets, oral, Once A Day Give 21 Days Hold 7 Days 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 01/26/2025 11:24 AM lisinopril 10 mg tablet Every day 1 tablet, ORAL, Every day, Give 1 tablet by mouth one time a day for htn 01/26/2025 08:41 AM melatonin 5 mg tablet At bedtime 1 tablet, ORAL, At bedtime, Give 1 tablet by mouth at bedtime for insomnia 01/26/2025 09:08 PM polyethylene glycol 3350 17 gram powder in packet Once A Day 17 gram, ORAL, Once A Day, Give 17 gram by mouth for constipation QD 01/26/2025 08:41 AM Pro-Stat AWC (amino acids-protein hydrolys) 17-100 gram-kcal/30 mL liquid Twice A Day 30 ml, oral, Twice A Day 01/26/2025 04:43 PM simvastatin 20 mg tablet Once A Day 1 tablet, oral, Once A Day, hyperlipidemia 01/26/2025 09:08 PM tramadol 50 mg tablet Every 6 Hours - PRN 1 tablet, ORAL, Every 6 Hours - PRN, Take 1 tablet (50 mg) by mouth every 6 (six) hours if needed for severe pain G89.4 : Chronic pain syndrome 024 01/09/2025 10:14 AM Tussin CF Cough-Cold (phenylephrine-dm -guaifenesin) 5-10-100 mg/5 mL liquid Every 4 Hours - PRN 10ml, oral, Every 4 Hours - PRN, cough/ congestion 024 05/01/2024 07:57 AM Fluzone High-Dose (PF) (flu vacc [id number](65yr up)-pf) 180 mcg/0.5 mL syringe Once - One Time 0.5ml, intramuscular, Once - One Time 025 202401/25/2025 02:08 PM sodium polystyrene sulfonate 15 gram powder Once - One Time 30 grams, oral, Once - One Time E87.5 : Hyperkalemia 202401/26/2025 04:43 PM Problems Code Type Problem ICD Code Effective Date Status ICD-10 Type 2 diabetes leroy itus without complications E11.9 03/10/2015 Active ICD-10 Weakness R53.1 12/22/2022 Active ICD-10 Morbid (severe) obes ity due to excess calories E66.01 12/24/2023 Active ICD-10 Age-related cognitive decline R41.81 2022 Active ICD-10 Malignant neoplasm of colon, unspecified C18.9 10/24/2022 Active ICD-10 Malignant neoplasm o f upper-outer quadrant of right female breast C50.411 09/13/2021 Active ICD-10 Essential (primary) hypertension I10 08/2022 Active ICD-10 Anxiety disorder, unspecified F41.9 2022 Active ICD-10 Tinea unguium B35.1 09/19/2022 Active ICD-10 Difficulty in walkin g, not elsewhere classified R26.2 12/23/2022 Active ICD-10 Vitamin D deficiency, unspecified E55.9 Active ICD-10 Insomnia, unspecified G47.00 01/22/2023 Act martin ICD-10 Muscle weakness (generalized) M62.81 2022 Active ICD-10 Cognitive communication deficit R41.841 0906/2022 Active ICD-10 Personal history of malignant neoplasm of breast Z85.3 12/25/2022 Active ICD-10 Pure hypercholesterolemia, unspecified E78.00 06/12/2021 Active ICD-10 Iron deficiency anemia, unspecified D50.9 06/11/2023 Active ICD-10 Chronic pain syndrome G89.4 04/23/2023 Act martin ICD-10 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 6 03/03/2024 Active ICD-10 Encounter for immunization Z23 Active ICD-10 Urinary tract infection, site not specified N39 .0 12/24/2022 Active ICD-10 Hyperkalemia E87.5 01/26/2025 Active Current Allergies and Intolerances Category Substance Type Reaction Severity Begin Date Status Drug allergy Penicillins Allergy 12/23/2022 Acti ve Drug allergy Sulfa (Sulfonamide Antibiotics) Allergy 12/23/2022 Active Allergy to substance Bee Sting Allergy 12/23/2022 Active Allergy to substance grass Allergy Nasal congestion Mild 10/29/2024 Active Vital Signs Height: 66.5 in Date / Time Temperature Pulse (per minute) Respirations (per minute) Systolic BP (mmHg) Diastolic BP (mmHg) O2 Saturation (%) Weight BMI 2024 06:41 AM 97.6 F 2024 06:33 PM 97.2 F 2024 08:42 AM 97.6 F 2024 05:15 AM 97.9 F 2024 04:02 PM 98.1 F 2024 02:07 PM 98.1 F 2024 02:25 PM 253.0 lbs 40.2 2 2024 01:38 PM 97.6 F 72 18 130 58 2024 06:04 PM 98.1 F 84 16 102 57 99.0 2024 02:42 PM 245.0 lbs 38.9 5 2024 06:55 PM 98.1 F 78 16 117 60 98.0 2024 02:58 PM 242.5 lbs 38.5 5 2024 12:02 PM 98.2 F 72 18 123 93 100.0 2024 04:43 PM 76 18 147 70 97.0 2024 05:12 PM 75 18 158 98 2024 07:04 PM 72 16 130 80 98.0 2024 06:26 PM 95 16 130 74 99.0 2024 02:02 PM 20 2024 01:16 AM 81 122 78 98.0 2024 10:09 PM 78 16 110 72 98.0 2024 07:50 AM 96.0 2023 10:14 AM 98.0 Advance Directives Directive Note Full Code Insurance Providers Payer Policy type Group Name Group number Policy ID Address Phone Medicare A Medicare Part A [id number] P josias: Fax: [employer] [id number] Phone: Fax: [employer] Part B Commercial Insurance [id number] Phone: Fax: Vaccinations - [employer] Like Medicare Part B [id number] [address] [address] [place] [address] Phone: Fax: Managed [employer]ins Medicaid - Medicaid [place] Medicaid ([facility]) [id number] [facility], [address] [place] [address] Phone: Fax: Medicaid [place] Medicaid ([facility]) [id number] Phone: Fax: Resident [employer] Private Phone: Fax: Private Pay Private Phone: Fax: Immunizations Vaccine Spring Layer Date Status Dose Series Complete COVID-19 Vaccine Moderna [id number] 07/22/2024 Completed B ooster Monovalent COVID-19 Vaccine Moderna [id number] 01/28/2024 Completed B ooster Monovalent COVID-19 Vaccine Moderna 08/02/2023 Completed Booster 2 - Monovalent COVID-19 Vaccine Moderna [id number] 02/12/2023 Completed B ooster Monovalent COVID-19 Vaccine Pfizer-BioNTech 01/10/2021 Completed 3 COVID-19 Vaccine Pfizer-BioNTech 06/29/2020 Completed 2 COVID-19 Vaccine Pfizer-BioNTech 06/12/2020 Completed 1 Influenza Vaccine sanofi pasteur 01/25/2025 Completed Influenza Vaccine sanofi pasteur fluzone high dose 01/28/2024 Completed Influenza Vaccine 01/25/2023 Completed Pneumococcal Vaccine 01/10/2023 Completed Pneumococcal Vaccine 04/12/2017 Completed RSV Vaccine GSK 06/04/2023 Completed Procedures Not available for this record Results Not available for this record Goals Goal Date She will exhibit ability to express anxiety in a calm manner when upset through next review 02/17/2025 Steffi will participate in yarely ve of absence (MIGUEL) with family/friends and follow facility MIGUEL rules through next review. 02/17/2025 Steffi will express need and acceptance of placement through next review 02/17/2025 Steffi's wishes will be followed through n ext review 02/17/2025 Will have no complaints of insomnia 01/21 Resident will have BM at least every 3 d ays until next review 02/17/2025 Resident will verbalize adeq uate relief of pain or the ability to cope with incompletely relieved pain through the next review date 02/17/2025 Resident will verbalize feelings about d iagnosis through next review 02/17/2025 Resident will express relief from pain t hrough next review 02/17/2025 Resident will receive adequate nutrition and fluids through next review. 02/17/2025 Resident's skin will remain intact skin through next review. 02/17/2025 Resident will not exhibit dr haney/oversedation, delayed reaction, imp. cognition/behavior, disturbed balance/gait/positioning ability, slurred speech, little/no act. invol., drug dependence, sleep disturb., rash, blurred vision, anticholinergic symptoms. 02/17/2025 Minimize risks for falls / m inimize injuries related to falls through next review. 02/17/2025 ROM will be maintained daily through rev iew. 02/17/2025 Will be free of s/s dehydrat ion, fluid overload, electrolyte imbalance through next review 02/17/2025 Will be free of significant weight changes q month 5% +/- per nursing/ grand rounds/weight reports. 02/17/2025 Resident will acknowledge po tential consequences of choosing to decline nutrition interventions through next review 02/17/2025 The resident will have less than two episodes of incontinence per day through the review date. 02/17/2025 Will remain oriented to pers on, place, situation, time through the review date 02/17/2025 The resident will remain marilynn e of complication related to hypertension and hyperlipidemia through review date. 02/17/2025 The resident will have no co mplications related to diabetes through the review date 02/17/2025 Resident will have adequate vision ability with prescription glasses AEB: no injuries and feeling safe & secure in environment through next review. 02/17/2025 The resident will remain marilynn e of complications related to antineoplastic meds side effects through review date. 02/17/2025 The resident will not have signs/symptom s of a UTI till next review. 02/17/2025 The resident will maintain c urrent level of function in adl's through the review date 02/17/2025 The resident will have documented contin ence daily thru next review 02/17/2025 The resident will remain marilynn e from skin breakdown due to incontinence and brief use through the review date 02/17/2025 The resident's risk for sept icemia will be minimized/prevented via prompt recognition and treatment of symptoms of UTI through the review date 02/17/2025 resident will remain free of complications related to fracture through review date. 02/17/2025 Resident will not exhibit si gns of activity intolerance (fatigue, shortness of breath, pallor or cyanosis, vertigo, weakness, etc.). 02/17/2025 Resident will express feelings about rec ent loss appropriately and freely. 02/17/2025 Resident will express satisf action with daily routine and leisure activities. 02/17/2025 Resident to be redirected du ring group activities and to encourage positive words towards staff and residents. 02/17/2025 Resident will have proper nu trition and hydration/ will be free of pain or bleeding in the oral cavity through next review 02/17/2025 Encounters Admission Date Discharge Date Description MRN Visit Count 12/23/2022 00:00 LTPAC Admission [id number] 01
--- OUTSIDE RECORDS SUMMARY | 2025-01-27 12:02 | XMS_ITS | Continuity of Care Document ---
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 09/13/2021 Activ e Essential (primary) hypertension I10 10/24/2022 Active Anxiety disorder, unspecified F41.9 01/22/2023 Active Tinea unguium B35.1 09/19/2022 Active Difficulty in walking, not elsewhere classified R26.2 12/23/2022 Active Vitamin D deficiency, unspecified E55.9 12/23/2022 Active Insomnia, unspecified G47.00 01/22/2023 Active Muscle weakness (generalized) M62.81 12/23/2022 Active Cognitive communication deficit R41.841 12/23/2022 Active Personal history of malignant neoplasm of breast Z85.3 12/25/2022 Active Pure hypercholesterolemia, unspecified E78.00 06/12/2021 Active Iron deficiency anemia, unspecified D50.9 06/11/2023 Active Chronic pain syndrome G89.4 04/23/2023 Active Limitation of activities due to disability Z73.6 03/03/2024 Active Urinary tract infection, site not specified N39.0 12/24/2022 Active Type 2 diabetes mellitus with diabetic chronic kidney disease E11.22 09/03/2024 Active Encounter for immunization Z23 01/13/2025 Active Hyperkalemia E87.5 01/26/2025 Active Results Test Result Date/Time Value / Unit Interp. Refere nce Range Blood chemistry[202863805] Glucose [Mass/volume] in Serum or Plasma [2345-7] 09/30/2024 10:25 AM 140 mg/dL N COVID-19 Test Viral Antigen null flavor [null] 05/11/2024 05:00 PM See note NEG COVID-19 Test Viral Antigen COVID-19 Test Viral Antigen null flavor [null] 05/09/2024 05:00 PM See note NEG COVID-19 Test Viral Antigen COVID-19 Test Viral Antigen null flavor [null] 05/07/2024 05:00 PM See note NEG COVID-19 Test Viral Antigen COVID-19 Test Viral Antigen null flavor [null] 04/16/2024 05:00 PM See note NEG COVID-19 Test Viral Antigen COVID-19 Test Viral PCR null flavor [null] 02/06/2024 04:00 PM See note NEG COVID-19 Test Viral PCR COVID-19 Test Viral Antigen null flavor [null] 02/04/2024 04:00 PM See note NEG COVID-19 Test Viral Antigen Allergies, adverse reactions, alerts Substance Reaction Date Status Type Penicillins 12/23/2022 Non Drug Sulfa (Sulfonamide Antibiotics) 12/23/2022 Non Drug Bee Sting 12/23/2022 Non Drug grass Nasal congestion (Mild) 10/29/2024 N on Drug Immunizations Vaccine Route Date Status COVID-19 Vaccine Unassigned Route of Administration Completed COVID-19 Vaccine Unassigned Route of Administration Completed COVID-19 Vaccine Unassigned Route of Administration Completed COVID-19 Vaccine Unassigned Route of Administration Completed COVID-19 Vaccine Unassigned Route of Administration Completed COVID-19 Vaccine Unassigned Route of Administration Completed Influenza Vaccine Unassigned Route of Administration 1 Completed Pneumococcal Vaccine Unassigned Route of Administratio n 01/10/2023 Completed Pneumococcal Vaccine Unassigned Route of Administratio n 04/12/2017 Completed RSV Vaccine Unassigned Route of Administration 2023 Completed COVID-19 Vaccine Unassigned Route of Administration Completed Influenza Vaccine Unassigned Route of Administration 1 Completed Medications Medication Instructions Route Dosage Frequency Start Date Stop Date Indications Status acetaminophen 500 mg tablet (acetaminophen ) 2 tablets, ORAL, Every 6 Hours - PRN, Give 2 tablet by mouth every 6 hours as needed for pain (2 [id number]) ORAL 1.0 6.0 h 2023 Active alprazolam 0.5 mg tablet (alprazolam) 1 tablet, oral, Every 4 Hours - PRN oral 1.0 4.0 h 04/07 Anxiety disorder, unspecified Active ascorbic acid (vitamin C) 500 mg tablet (ascorbic acid (vitamin C)) 1 tablet, oral, Once A Day oral 1.0 1.0 d 2023 Iron deficiency anemia, unspecified Active buspirone 5 mg tablet (buspirone) 1 tablet, oral, Once A Day oral 1.0 1.0 d 2023 Anxiety disorder, unspecified Active cholecalcifero l (vitamin D3) 50 mcg (2,000 unit) tablet (cholecalcifer ol (vitamin D3)) 1 tablet, ORAL, Every day, Give 1 tablet by mouth one time a day for supplement ORAL 1.0 1.0 d 2023 Active docusate sodium 100 mg capsule (docusate sodium) 1 capsule, ORAL, Twice a day, Give 1 capsule by mouth two times a day for constipation ORAL 1.0 12.0 h 2023 Active ferrous sulfate 325 mg (65 mg iron) tablet (ferrous sulfate) 1 tablet, oral, Once A Day oral 1.0 1.0 d 2023 Iron deficiency anemia, unspecified Active Kisqali (ribociclib) 600 mg/day (200 mg x 3) tablet (Kisqali (ribociclib)) 3 tablets, oral, Once A Day Give 21 Days Hold 7 Days oral 1.0 1.0 d 2023 Malignant neoplasm of upper-outer quadrant of right female breast Active lisinopril 10 mg tablet (lisinopril) 1 tablet, ORAL, Every day, Give 1 tablet by mouth one time a day for htn ORAL 1.0 1.0 d 2023 Active melatonin 5 mg tablet (melatonin) 1 tablet, ORAL, At bedtime, Give 1 tablet by mouth at bedtime for insomnia ORAL 1.0 2022 Active polyethylene glycol 3350 17 gram powder in packet (polyethylene glycol 3350) 17 gram, ORAL, Once A Day, Give 17 gram by mouth for constipation QD ORAL 1.0 1.0 d 2023 Active simvastatin 20 mg tablet (simvastatin) 1 tablet, oral, Once A Day oral 1.0 1.0 d 2023 Active tramadol 50 mg tablet (tramadol) 1 tablet, ORAL, Every 6 Hours - PRN, Take 1 tablet (50 mg) by mouth every 6 (six) hours if needed for severe pain ORAL 1.0 6.0 h 2023 Chronic pain syndrome Active buspirone 5 mg tablet (buspirone) 0.5 tablet, oral, Once A Day oral 1.0 1.0 d 03/24 Anxiety disorder, unspecified Active furosemide 20 mg tablet (furosemide) 1 tablet, oral, Once A Day, edema oral 1.0 1.0 d 03/22 Essential (primary) hypertension Active Kisqali (ribociclib) 600 mg/day (200 mg x 3) tablet (Kisqali (ribociclib)) 3 tablets, oral, Once A Day Give 21 Days Hold 7 Days oral 1.0 1.0 d 03/11 Malignant neoplasm of upper-outer quadrant of right female breast Active acetaminophen 325 mg tablet,chewabl e (acetaminophen ) 2 tablets, oral, Every 6 Hours - PRN, FOR FEVER oral 1.0 6.0 h 2023 Active Tussin CF Cough-Cold (phenylephrine -dm-guaifenesi n) 5-10-100 mg/5 mL liquid (Tussin CF Cough-Cold (phenylephrine -dm-guaifenesi n)) 10ml, oral, Every 4 Hours - PRN, cough/ congestion oral 1.0 4.0 h 2023 Active Mucinex DM (dextromethorp acosta-guaifenesi n) 30-600 mg tablet extended release 12 hr (Mucinex DM (dextromethorp acosta-guaifenesi n)) 1 tablet, oral, Twice A Day, cough/congestio n oral 1.0 12.0 h 5 05/04 Active Pro-Stat AWC (amino acids-protein hydrolys) 17-100 gram-kcal/30 mL liquid (Pro-Stat AWC (amino acids-protein hydrolys)) 30 ml, oral, Twice A Day oral 1.0 12.0 h 2024 Active Spikevax 9069-3012(12y up)(PF) (covid vac 24-25(12up)(mo d)(pf)) 50 mcg/0.5 mL syringe (Spikevax 8969-7693(12y up)(PF) (covid vac 24-25(12up)(mo d)(pf))) 0.5ml, intramuscular, Once - One Time intramus cular 1.0 07/22 Active buspirone 5 mg tablet (buspirone) 5 mg, oral, Twice A Day oral 1.0 12.0 h 2024 Anxiety disorder, unspecified Active simvastatin 20 mg tablet (simvastatin) 1 tablet, oral, Once A Day, hyperlipidemia oral 1.0 1.0 d 2024 Active SPS (with sorbitol) (sodium polystyrene sulf-sorbtl) 15-20 gram/60 mL suspension (SPS (with sorbitol) (sodium polystyrene sulf-sorbtl)) Give 30mL, oral, STAT - Immediately, For elevated K+ Laboratory results. oral 1.0 12/22 Muscle weakness (generalized) Active Fluzone High-Dose (PF) (flu vacc [id number](65yr up)-pf) 180 mcg/0.5 mL syringe (Fluzone High-Dose (PF) (flu vacc hb3715-11(65yr up)-pf)) 0.5ml, intramuscular, Once - One Time intramus cular 1.0 01/25 Active sodium polystyrene sulfonate 15 gram powder (sodium polystyrene sulfonate) 30 grams, oral, Once - One Time oral 1.0 01/26 Hyperkalemia Active Vital Signs Date Vital Result Comment 03/24/2024 07:42 AM Temperature (8310-5) 98 [degF] 03/23/2024 09:18 PM Temperature (8310-5) 98.3 [degF] Oxygen Saturation (69821-4) 96 % Respiratory Rate (9279-1) 18 /min Heart Rate (8867-4) 80 /min Blood Pressure Systolic (8480-6) 126 mm[Hg] Blood Pressure Diastolic (8462-4) 80 mm[Hg] 03/23/2024 07:53 AM Temperature (8310-5) 98.3 [degF] 03/22/2024 08:20 AM Temperature (8310-5) 98.3 [degF] 03/21/2024 12:49 PM Body Weight (64088-5) 233 [lb_av] Body Mass Index (59644-3) 37.04 kg/m2 03/20/2024 10:18 AM Body Weight (31381-2) 234 [lb_av] Body Mass Index (79836-0) 37.2 kg/m2 03/19/2024 11:41 AM Body Weight (44036-2) 237 [lb_av] Body Mass Index (83621-1) 37.68 kg/m2 03/18/2024 12:16 PM Body Weight (74480-4) 224 [lb_av] Body Mass Index (54381-1) 35.61 kg/m2 02/21/2024 01:32 PM Body Weight (39784-6) 225.5 [lb_av ] Body Mass Index (75043-1) 35.85 kg/m2 01/30/2024 12:23 AM Temperature (8310-5) 98 [degF] 01/29/2024 06:44 PM Temperature (8310-5) 98.1 [degF] 01/29/2024 08:44 AM Temperature (8310-5) 98.2 [degF] 01/29/2024 12:52 AM Temperature (8310-5) 97.5 [degF] 01/28/2024 09:29 PM Temperature (8310-5) 98.2 [degF] 01/28/2024 03:46 PM Body Weight (13240-8) 223 [lb_av] Body Mass Index (03218-3) 35.45 kg/m2 01/28/2024 11:43 AM Temperature (8310-5) 98.3 [degF] 01/22/2024 10:42 PM Oxygen Saturation (68913-2) 98 % Respiratory Rate (9279-1) 16 /min Heart Rate (8867-4) 67 /min Blood Pressure Systolic (8480-6) 155 mm[Hg] Blood Pressure Diastolic (8462-4) 68 mm[Hg] 12/22/2023 12:49 AM Oxygen Saturation (49547-6) 98 % Respiratory Rate (9279-1) 18 /min Heart Rate (8867-4) 63 /min Blood Pressure Systolic (8480-6) 140 mm[Hg] Blood Pressure Diastolic (8462-4) 96 mm[Hg] 11/21/2023 10:48 PM Oxygen Saturation (17887-5) 96 % Respiratory Rate (9279-1) 16 /min Heart Rate (8867-4) 85 /min Blood Pressure Systolic (8480-6) 126 mm[Hg] Blood Pressure Diastolic (8462-4) 81 mm[Hg] 10/25/2023 10:20 PM Oxygen Saturation (11698-3) 97 % Respiratory Rate (9279-1) 16 /min Heart Rate (8867-4) 70 /min Blood Pressure Systolic (8480-6) 159 mm[Hg] Blood Pressure Diastolic (8462-4) 72 mm[Hg] 09/26/2023 12:19 PM Oxygen Saturation (33655-5) 96 % Respiratory Rate (9279-1) 16 /min Heart Rate (8867-4) 80 /min Blood Pressure Systolic (8480-6) 119 mm[Hg] Blood Pressure Diastolic (8462-4) 54 mm[Hg] 09/17/2023 10:10 PM Oxygen Saturation (32843-4) 96 % Respiratory Rate (9279-1) 16 /min Heart Rate (8867-4) 72 /min Blood Pressure Systolic (8480-6) 126 mm[Hg] Blood Pressure Diastolic (8462-4) 71 mm[Hg] 09/16/2023 09:30 PM Oxygen Saturation (38280-3) 97 % Respiratory Rate (9279-1) 16 /min Heart Rate (8867-4) 80 /min Blood Pressure Systolic (8480-6) 122 mm[Hg] Blood Pressure Diastolic (8462-4) 70 mm[Hg] 09/13/2023 01:24 PM Oxygen Saturation (90787-5) 96 % Respiratory Rate (9279-1) 18 /min Heart Rate (8867-4) 76 /min Blood Pressure Systolic (8480-6) 124 mm[Hg] Blood Pressure Diastolic (8462-4) 77 mm[Hg] 09/12/2023 11:43 PM Respiratory Rate (9279-1) 14 /min Heart Rate (8867-4) 76 /min Blood Pressure Systolic (8480-6) 132 mm[Hg] Blood Pressure Diastolic (8462-4) 78 mm[Hg] 09/08/2023 09:33 AM Oxygen Saturation (27037-3) 96 % 12/23/2022 12:00 AM Body Height (8302-2) 66.5 [in_us] 04/03/2024 02:48 PM Body Weight (73806-3) 235.2 [lb_av ] Body Mass Index (55114-2) 37.39 kg/m2 04/04/2024 01:02 PM Body Weight (80693-4) 234.4 [lb_av ] Body Mass Index (06694-7) 37.26 kg/m2 04/16/2024 10:14 AM Temperature (8310-5) 98.2 [degF] Oxygen Saturation (27721-9) 98 % 04/22/2024 07:50 AM Temperature (8310-5) 97.9 [degF] Oxygen Saturation (84501-6) 96 % Respiratory Rate (9279-1) 18 /min Heart Rate (8867-4) 71 /min Blood Pressure Systolic (8480-6) 124 mm[Hg] Blood Pressure Diastolic (8462-4) 80 mm[Hg] 04/28/2024 02:50 PM Body Weight (01926-5) 224 [lb_av] Body Mass Index (48315-7) 35.61 kg/m2 05/23/2024 10:09 PM Temperature (8310-5) 98.1 [degF] Oxygen Saturation (34437-0) 98 % Respiratory Rate (9279-1) 16 /min Heart Rate (8867-4) 78 /min Blood Pressure Systolic (8480-6) 110 mm[Hg] Blood Pressure Diastolic (8462-4) 72 mm[Hg] 05/24/2024 10:24 AM Body Weight (93689-8) 230 [lb_av] Body Mass Index (02943-4) 36.56 kg/m2 06/20/2024 11:01 AM Body Weight (56907-9) 230 [lb_av] Body Mass Index (45778-5) 36.56 kg/m2 06/22/2024 01:16 AM Temperature (8310-5) 98.2 [degF] Oxygen Saturation (84834-1) 98 % Heart Rate (8867-4) 81 /min Blood Pressure Systolic (8480-6) 122 mm[Hg] Blood Pressure Diastolic (8462-4) 78 mm[Hg] 06/25/2024 02:02 PM Respiratory Rate (9279-1) 20 /min 07/24/2024 06:26 PM Temperature (8310-5) 98.2 [degF] Oxygen Saturation (34312-7) 99 % Respiratory Rate (9279-1) 16 /min Heart Rate (8867-4) 95 /min Blood Pressure Systolic (8480-6) 130 mm[Hg] Blood Pressure Diastolic (8462-4) 74 mm[Hg] 07/27/2024 02:19 PM Body Weight (55673-5) 240 [lb_av] Body Mass Index (95245-8) 38.15 kg/m2 08/23/2024 07:04 PM Temperature (8310-5) 98.2 [degF] Oxygen Saturation (30584-7) 98 % Respiratory Rate (9279-1) 16 /min Heart Rate (8867-4) 72 /min Blood Pressure Systolic (8480-6) 130 mm[Hg] Blood Pressure Diastolic (8462-4) 80 mm[Hg] 11/21/2024 06:55 PM Temperature (8310-5) 98.1 [degF] Oxygen Saturation (32987-0) 98 % Respiratory Rate (9279-1) 16 /min Heart Rate (8867-4) 78 /min Blood Pressure Systolic (8480-6) 117 mm[Hg] Blood Pressure Diastolic (8462-4) 60 mm[Hg] 10/25/2024 12:02 PM Temperature (8310-5) 98.2 [degF] Oxygen Saturation (84081-1) 100 % Respiratory Rate (9279-1) 18 /min Heart Rate (8867-4) 72 /min Blood Pressure Systolic (8480-6) 123 mm[Hg] Blood Pressure Diastolic (8462-4) 93 mm[Hg] 10/13/2024 09:51 AM Temperature (8310-5) 98 [degF] 08/25/2024 05:12 PM Temperature (8310-5) 98.3 [degF] Respiratory Rate (9279-1) 18 /min Heart Rate (8867-4) 75 /min Blood Pressure Systolic (8480-6) 158 mm[Hg] Blood Pressure Diastolic (8462-4) 98 mm[Hg] 11/21/2024 02:58 PM Body Weight (19060-4) 242.5 [lb_av ] Body Mass Index (60564-7) 38.55 kg/m2 12/24/2024 02:42 PM Body Weight (06497-8) 245 [lb_av] Body Mass Index (07057-5) 38.95 kg/m2 10/22/2024 03:13 PM Body Weight (60329-5) 241 [lb_av] Body Mass Index (42188-5) 38.31 kg/m2 09/20/2024 04:43 PM Temperature (8310-5) 98.1 [degF] Oxygen Saturation (24015-8) 97 % Respiratory Rate (9279-1) 18 /min Heart Rate (8867-4) 76 /min Blood Pressure Systolic (8480-6) 147 mm[Hg] Blood Pressure Diastolic (8462-4) 70 mm[Hg] 12/28/2024 06:04 PM Temperature (8310-5) 98.1 [degF] Oxygen Saturation (31486-2) 99 % Respiratory Rate (9279-1) 16 /min Heart Rate (8867-4) 84 /min Blood Pressure Systolic (8480-6) 102 mm[Hg] Blood Pressure Diastolic (8462-4) 57 mm[Hg] 01/21/2025 01:38 PM Temperature (8310-5) 97.6 [degF] Respiratory Rate (9279-1) 18 /min Heart Rate (8867-4) 72 /min Blood Pressure Systolic (8480-6) 130 mm[Hg] Blood Pressure Diastolic (8462-4) 58 mm[Hg] 01/21/2025 02:25 PM Body Weight (36436-5) 253 [lb_av] Body Mass Index (90377-1) 40.22 kg/m2 01/25/2025 02:07 PM Temperature (8310-5) 98.1 [degF] 01/25/2025 04:02 PM Temperature (8310-5) 98.1 [degF] 01/26/2025 05:15 AM Temperature (8310-5) 97.9 [degF] 01/26/2025 08:42 AM Temperature (8310-5) 97.6 [degF] 01/26/2025 06:33 PM Temperature (8310-5) 97.2 [degF] 01/27/2025 06:41 AM Temperature (8310-5) 97.6 [degF] 01/27/2025 08:45 AM Temperature (8310-5) 98 [degF] Social History No smoking Hx information available Encounters Type CPT Code Date Location Provider Indication s encounter report 12/23/2022 12:00 AM Rosalia Rodriguez MD Advance Directives Directive Description Verification Date Supporting Document(s) Other Directive
--- OUTSIDE RECORDS SUMMARY | 2025-01-27 12:09 | XMS_ITS | CCD ---
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 Name Role Phone Rickey Askew Primary Care Physician Eva Beard Unavailable Unavailable Rickey Askew MD Unavailable Rickey Askew MD Primary Care Provider [phone] DO Senthil Caldera II Attending Provider MD Mary Rodriguez Primary Care Provider [phone] MD Mary Rodriguez Primary Care Provider [phone] DO Senthil Caldera II Attending Provider Senthil Caldera Attending Unavailable Verenice, Senthil Attending Unavailable Verenice, Senthil Attending Unavailable Senthil Caldear Admitting Unavailable Nohemy [facility] Moreland Attending UnavailSammy Orosco Attending Unavailable Sammy QUEZADA Attending Unavailable Sammy QUEZADA Attending Unavailable Zaheer Sloan Admitting Unavailable Zaheer Sloan Attending Unavailable Wyatt Murray Attending Unavailable Mariia LOPEZ Admitting Unavailable Georgina Gavino T Consulting Unavailable Lugo, Gavino T Consulting Unavailable MARCEL ALVAREZ Consulting Unavailable Lugo, Agvino T Consulting Unavailable Lugo, Gavino T Consulting Unavailable Lugo, Gavino T Consulting Unavailable Lugo, Gavino T Consulting Unavailable Lugo, Gavino T Consulting Unavailable Lugo, Gavino T Consulting Unavailable Lugo, Gavino T Consulting Unavailable Lugo, Gavino T Consulting Unavailable Lugo, Gavino T Consulting Unavailable David Tong Attending Unavailable Jeffery Murphy Attending Unavailable Senthil Caldera Attending Unavailable Senthil Caldera Attending Unavailable MD Mary Rodriguez Primary Care Provider Verenice [facility], DO Ndiaye Attending Provider David Calderaothy Referring Unavailable Adamowicz, Senthil Attending Unavailable Unallocated MD, Noms Provider Primary Care Provi ramone Unallocated , Noms Provider Primary Care Provi ramone Mary Rodriguez MD Primary Care Provider [facility] DO, Senthil Attending Provider Mary Rodriguez MD Primary Care Provider [facility] DO, Senthil Attending Provider Adamowicz [facility], Senthil Admitting Unavai lable [facility] Attending Unavai lable [place], [facility] Un[facility] Admitting Unavai lable Adamowicz [facility], Senthil Attending Unavai lable [place], [facility] Primary [facility] Un[facility] Admitting Unavai lable Adamowicz [facility], Senthil Attending Unavai lable Jennifer, [facility] Primary Care Un[facility] S[facility]il Attending Unavai lable [facility], Senthil Admitting Unavai lable [place], [facility] Primary Care Unavailable Adamowicz, Senthil Attending Unavailable Adamowicz, Senthil Attending Unavailable Adamowicz, Senthil Attending Unavailable Adamowicz, Senthil Attending Unavailable Adamowicz, Senthil Attending Unavailable Adamowicz, Senthil Attending Unavailable Adamowicz, Senthil Attending Unavailable Adamowicz, Senthil Attending Unavailable Adamowicz, Senthil Attending Unavailable Adamowicz, Senthil Attending Unavailable Adamowicz, Senthil Attending Unavailable Adamowicz, Senthil Attending Unavailable Adamowicz, Senthil Attending Unavailable Adamowicz, Senthil Attending Unavailable Adamowicz, Senthil Attending Unavailable Allergies Allergy Classification Reported Allergen(s) Allergy Type Date of Onset Reaction(s) Facility Bee/Wasp/Ant Venom (1 source) Bee/Wasp/Ant venom; Translations: [Bee Stings] Substance Allergy [facility] Repository Penicillins (antibiotic) (1 source) Penicillins; Translations: [penicillins] Drug Allergy [facility] Repository Sulfonamides (antibiotic) (1 source) Sulfonamides (Antibiotic); Translations: [sulfa drugs] Drug Allergy [facility] Repository (20 sources) Bee/Wasp/Ant venom; Translations: [Bee Stings] Drug allergy Dyspnea (finding) [facility] (20 sources) Penicillins; Translations: [penicillins] Drug allergy 2 Dyspnea (finding), Shortness of breath, Unknown [facility] (20 sources) Sulfonamides (Antibiotic); Translations: [sulfa drugs] Drug allergy Dyspnea (finding) [facility] (9 sources) Penicillin G Drug Allergy 2 [facility] (9 sources) Sulfonamides (Antibiotic) Drug Allergy 3 Shortness of breath [facility] Medications Current Medications Medication Drug Class(es) Dates Sig (Normalized) Sig (Original) acetaminophen 500 mg oral tablet (20 sources) Start: 11-13-2022 take 2 tablets by mouth every six hours acetaminophen 500 mg Tab 1,000 mg = 2 tab(s), Oral, q6hr, Refills(s) 0 Start Date: 11/13/22 Status: Ordered Repeat number: 1 anastrozole 1 mg oral tablet (20 sources) Aromatase Inhibitor Start: 08-01-2021 take 1 tablet by mouth once daily anastrozole 1 mg Tab 1 mg = 1 tab(s), Oral, Daily, # 30 tab(s), Refills(s) 11, called to pharmacy (Rx) Start Date: 10/29/22 Status: Ordered Quantity: 30.0 Unit: tab(s) Repeat number: 12 busPIRone hydrochloride 5 mg oral tablet (17 sources) Start: 05-01-2023 take 1 tablet by mouth twice daily busPIRone 5 mg Tab 5 mg = 1 tab(s), Oral, BID, # 270 tab(s), Refills(s) 0 Start Date: 05/01/23 Status: Ordered Quantity: 270.0 Unit: tab(s) Repeat number: 1 cephalexin 500 mg oral capsule (2 sources) Cephalosporin Antibacterial Start: 12-19-2022 End: 12-26-2022 take 1 capsule by mouth four times daily Keflex 500 mg Cap 500 mg = 1 cap(s), Oral, QID, X 7 day(s), # 28 cap(s), Refills(s) 0, [facility], 167.6, cm, 12/19/22 20:43:00 EDT, Height/Length Dosing, 87.1, kg, 12/19/22 20:43:00 EDT, Weight Dosing Start Date: 12/19/22 Stop Date: 12/26/22 Status: Ordered cholecalciferol 0.05 mg oral tablet (9 sources) Vitamin D Start: 12-14-2022 take 1 tablet by mouth in the morning cholecalciferol (Vitamin D-3) 50 MCG (2000 UT) tablet Take 2,000 Units by mouth in the morning. 12/14/2022 Active Cinnamon Preparation (19 sources) Non-Standardized Food Allergenic Extract Start: 09-07-2021 Cinnamon 1,000 mg, Daily, Refills(s) 0 Start Date: 09/07/21 Status: Ordered docusate sodium 100 mg oral tablet (17 sources) Start: 05-01-2023 take 100 mg by mouth twice daily Colace 100 mg, Oral, BID, Refills(s) 0 Start Date: 05/01/23 Status: Ordered Repeat number: 1 exemestane 25 mg oral tablet (15 sources) Aromatase Inhibitor Start: 06-13-2023 take 1 tablet by mouth once daily exemestane 25 mg Tab 25 mg = 1 tab(s), Oral, Daily, # 30 tab(s), Refills(s) 11, Pharmacy: [facility], 167.6, cm, 06/12/23 11:02:00 EST, Height/Length Dosing, 90.7, kg, 06/12/23 11:02:00 EST, Weight Dosing Start Date: 06/13/23 Status: Ordered Quantity: 30.0 Unit: tab(s) Repeat number: 12 Indications: Malignant neoplasm of unspecified site of unspecified female breast; ferrous sulfate 325 mg oral tablet (14 sources) Start: 01-09-2024 take 1 tablet by mouth once daily ferrous sulfate 325 mg Tab 325 mg = 1 tab(s), Oral, Daily, Refills(s) 0 Start Date: 01/09/24 Status: Ordered Repeat number: 1 Fish Oils (20 sources) Start: 07-03-2021 take [...] 0 Start Date: 09/07/21 Status: Ordered Claritin (17 sources) Start: 05-01-2023 Claritin 10 mg, Refills(s) 0 Start Date: 05/01/23 Status: Ordered Repeat number: 1 Start: 05-01-2023 Claritin 10 mg , Refills(s) 0 Start Date: 05/01/23 Status: Ordered melatonin 5 mg oral tablet (20 sources) Start: 11-13-2022 take 1 tablet by mouth once daily at bedtime as needed melatonin 5 mg oral tablet 5 mg = 1 tab(s), Oral, Once a day (at bedtime), PRN for insomnia, # 60 tab(s), Refills(s) 0 Start Date: 11/13/22 Status: Ordered Quantity: 60.0 Unit: tab(s) Repeat number: 1 ondansetron 8 mg oral tablet (20 sources) Serotonin-3 Receptor Antagonist Start: 08-24-2021 take 1 tablet by mouth every eight hours as needed for nausea ondansetron 8 mg Tab 8 mg, Oral, q8hr, PRN Nausea, # 30 tab(s), Refills(s) 3, Pharmacy: [facility], 162.5, cm, 08/10/21 12:38:00 EDT, Height/Length Dosing, 96.5, kg, 08/10/21 12:38:00 EDT, Weight Dosing Start Date: 08/24/21 Status: Ordered oxyCODONE hydrochloride 5 mg oral tablet (10 sources) Opioid Agonist Start: 12-17-2022 End: 12-20-2022 take 1 tablet by mouth every six hours as needed for pain oxyCODONE (Roxicodone) 5 MG immediate release tablet Take 5 mg by mouth every 6 (six) hours if needed for severe pain. 12/17/2022 Active Miralax (17 sources) Osmotic Laxative Start: 05-01-2023 take 17 g by mouth once daily MiraLax 17 gm, Oral, Daily, Refill(s) 0 Start Date: 05/01/23 Status: Ordered Repeat number: 1 Start: 05-01-2023 take 17 g by mouth once daily MiraLax 17 gm, Oral, Daily, Refill(s) 0 Start Date: 05/01/23 Status: Ordered simvastatin 40 mg oral tablet (20 sources) HMG-CoA Reductase Inhibitor Start: 07-03-2021 take 1 tablet by mouth once daily at bedtime simvastatin 40 mg Tab 40 mg = 1 tab(s), Oral, Once a day (at bedtime), Refills(s) 0 Start Date: 07/03/21 Status: Ordered Repeat number: 1 traMADol hydrochloride 50 mg oral tablet (17 sources) Opioid Agonist Start: 05-01-2023 take 50 mg by mouth every six hours tramadol 50 mg, Oral, q6hr, Refills(s) 0 Start Date: 05/01/23 Status: Ordered Repeat number: 1 vitamin b12 1 mg oral tablet (9 sources) Vitamin B12 Start: 09-27-2022 take 1 tablet by mouth in the morning cyanocobalamin (Vitamin B-12) 1000 MCG tablet Take 1,000 mcg by mouth in the morning. 09/27/2022 Active Vitamin B12 1000 mcg Tab (20 sources) Start: 09-27-2022 take 1 tablet by mouth once daily Vitamin B12 1000 mcg Tab 1,000 mcg = 1 tab(s), Oral, Daily, # 30 tab(s), Refills(s) 11, Pharmacy: [facility] #[facility], 162, cm, 09/08/22 15:14:00 EDT, Height/Length Dosing, 96.4, kg, 09/27/22 13:43:00 EDT, Weight Dosing Start Date: 09/27/22 Status: Ordered Quantity: 30.0 Unit: tab(s) Repeat number: 12 Indications: Malignant neoplasm of unspecified site of unspecified female breast; Start: 09-27-2022 take 1 tablet by pio th once daily Vitamin B12 1000 mcg Tab 1,000 mcg = 1 tab(s), Oral, Daily, # 30 tab(s), Refills(s) 11, Pharmacy: [facility], 162, cm, 09/08/22 15:14:00 EDT, Height/Length Dosing, 96.4, kg, 09/27/22 13:43:00 EDT, Weight Dosing Start Date: 09/27/22 Status: Ordered Quantity: 30.0 Unit: tab(s) Repeat number: 12 Indication: Malignant neoplasm of unspecified site of unspecified female breast Start: 09-27-2022 take 1 tablet by pio once daily Vitamin B12 1000 mcg Tab 1,000 mcg = 1 tab(s), Oral, Daily, # 30 tab(s), Refills(s) 11, Pharmacy: [facility], 162, cm, 09/08/22 15:14:00 EDT, Height/Length Dosing, 96.4, kg, 09/27/22 13:43:00 EDT, Weight Dosing Start Date: 09/27/22 Status: Ordered Vitamin D3 2000 intl units oral tablet (20 sources) Start: 12-14-2022 take 1 tablet by mouth once daily Vitamin D3 2000 intl units oral tablet 50 mcg = 1 tab(s), Oral, Daily, # 90 tab(s), Refills(s) 4, Pharmacy: [facility], 167, cm, 11/01/22 20:02:00 EDT, Height/Length Dosing, 90.3, kg, 11/01/22 20:02:00 EDT, Weight Dosing Start Date: 12/14/22 Status: Ordered Quantity: 90.0 Unit: tab(s) Repeat number: 5 Start: 12-14-2022 take 1 tablet by pio th once daily Vitamin D3 2000 intl units oral tablet 50 mcg = 1 tab(s), Oral, Daily, # 90 tab(s), Refills(s) 4, Pharmacy: [facility], 167, cm, 11/01/22 20:02:00 EDT, Height/Length [...] daily, # 7 cap(s), Refills(s) 0, Pharmacy: [facility], 167, cm, 11/01/22 20:02:00 EDT, Height/Length Dosing, 90.3, kg, 11/01/22 20:02:00 EDT, Weight Dosing Start Date: 11/04/22 Status: Ordered Start: 11-04-2022 ergocalciferol 50,000 intl units Cap 50,000 International_Unit = 1 cap(s), Oral, q7day, # 7 cap(s), Refills(s) 0, Pharmacy: [facility], 167, cm, 11/01/22 20:02:00 EDT, Height/Length [...] Refills(s) 0 Start Date: 07/18/21 Status: Ordered Repeat number: 1 Start: 07-03-2021 take 1 tablet by pio th once daily lisinopril 5 mg Tab 5 mg = 1 tab(s), Oral, Daily, Refills(s) 0 Start Date: 07/03/21 Status: Ordered {63 (ribociclib 200 MG Oral Tablet [Kisqali]) } Pack [Kisqali 600 MG Daily Dose Carton] (20 sources) Start: 01-09-2024 Kisqali (600 m g daily dose) oral tablet 600 mg = 3 tab(s), Oral, Daily, take for 21 days followed by a 7 day rest period this is an increase in dose. pt was taking 400 mg but will now be taking 600 mg daily, # 63 tab(s), Refills(s) 12, Pharmacy: [id number], 167.6, cm, 01/09/24 10:45:00 EDT, Height/Length Dosing, 99, kg, 01/09/24 10:45:00 EDT, Weight Dosing Start Date: 01/09/24 Status: Ordered Quantity: 63.0 Unit: tab(s) Repeat number: 13 Indications: Malignant neoplasm of unspecified site of unspecified female breast; Start: 01-09-2024 Kisqali (600 m g daily dose) oral tablet 600 mg = 3 tab(s), Oral, Daily, take for 21 days followed by a 7 day rest period this is an increase in dose. pt was taking 400 mg but will now be taking 600 mg daily, # 63 tab(s), Refills(s) 12, Pharmacy: [id number], 167.6, cm, 01/09/24 10:45:00 EDT, Height/Length Dosing, 99, kg, 01/09/24 10:45:00 EDT, Weight Dosing Start Date: 01/09/24 Status: Ordered Quantity: 63.0 Unit: tab(s) Repeat number: 13 Indication: Malignant neoplasm of unspecified site of unspecified female breast Start: 01-09-2024 Kisqali (600 m g daily dose) oral tablet 600 mg = 3 tab(s), Oral, Daily, take for 21 days followed by a 7 day rest period this is an increase in dose. pt was taking 400 mg but will now be taking 600 mg daily, # 63 tab(s), Refills(s) 12, Pharmacy: [id number], 167.6, cm, 01/09/24 10:45:00 EDT, Height/Length Dosing, 99, kg, 01/09/24 10:45:00 EDT, Weight Dosing Start Date: 01/09/24 Status: Ordered Start: 12-03-2023 End: 09-01-2024 Kisqali (400 mg daily dose) oral tablet 400 mg = 2 tab(s), Oral, Daily, 21 DAYS ON THEN 7 DAYS OFF 400 MG DAILY DOSE, X 21 day(s), # 42 tab(s), Refills(s) 12, Pharmacy: [facility], 167.6, cm, 09/12/23 10:31:00 EDT, Height/Length Dosing, 90.7, kg, 09/12/23 10:31:00 EDT, Weight Dosing Start Date: 12/03/23 Stop Date: 09/01/24 Status: Ordered Quantity: 42.0 Unit: tab(s) Repeat number: 13 Indication: Malignant neoplasm of unspecified site of unspecified female breast Start: 12-03-2023 End: 09-01-2024 Kisqali (400 mg daily dose) oral tablet 400 mg = 2 tab(s), Oral, Daily, 21 DAYS ON THEN 7 DAYS OFF 400 MG DAILY DOSE, X 21 day(s), # 42 tab(s), Refills(s) 12, Pharmacy: [facility], 167.6, cm, 09/12/23 10:31:00 EDT, Height/Length Dosing, 90.7, kg, 09/12/23 10:31:00 EDT, Weight Dosing Start Date: 12/03/23 Stop Date: 09/01/24 Status: Ordered Start: 05-30-2023 End: 02-27-2024 Kisqali (400 mg daily dose) oral tablet 400 mg = 2 tab(s), Oral, Daily, 21 DAYS ON THEN 7 DAYS OFF 400 MG DAILY DOSE, X 21 day(s), # 42 tab(s), Refills(s) 12, Pharmacy: [id number], 167.6, cm, 05/01/23 14:05:00 EST, Height/Length Dosing, 86.7, kg, 12/20/22 15:11:00 EDT, Weight Dosing Start Date: 05/30/23 Stop Date: 02/27/24 Status: Ordered Start: 05-09-2022 ribociclib 200 mg dose (Kisqali, 200 MG Dose,) tablet chemo therapy pack See Instructions, 2 tab(s) take for 21 days, withhold for 7 days, then repeat cycle. 11 REFILLS, # 42 tab(s), Refills(s) 1, called to pharmacy (Rx) 05/09/2022 Active Start: 03-29-2022 Kisqali (400 m g daily [...] pharmacy (Rx) Start Date: 03/14/22 Status: Ordered Problems Active Problems Problem Classification Problem Date Documented Da te Episodic/Chronic Allergic reactions (1 source) Urticaria; Translations: [Other urticaria] Onset: 09-03-2021 Episodic Cancer of breast (20 sources) Malignant neoplasm of upper-outer quadrant of right female breast; Translations: [Malignant neoplasm of upper-outer quadrant of female breast] Onset: 07-11-2021 Chronic Cancer of breast (20 sources) Personal history of malignant neoplasm of breast; Translations: [History of malignant neoplasm of breast] Onset: 11-02-2022 Episodic Cancer of colon (10 sources) Malignant tumor of colon; Translations: [Malignant neoplasm of colon, unspecified] Onset: 10-24-2022 Chronic Deficiency and other anemia (1 source) Anemia; Translations: [Anemia, unspecified] Onset: 12-19-2022 Episodic Delirium, dementia, and amnestic and other cognitive disorders (20 sources) Age-related cognitive decline; Translations: [Age-related cognitive [...] Translations: [Weakness] Onset: 11-02-2022 Episodic Nutritional deficiencies (20 sources) Vitamin D deficiency; Translations: [Vitamin D deficiency, unspecified] Onset: 11-06-2022 Chronic Other aftercare (1 source) Long-term current use of drug therapy; Translations: [Other fpc (current) drug therapy] Onset: 11-02-2022 Episodic Other connective tissue disease (2 sources) Recurrent falls ; Translations: [Repeated falls] Onset: 11-02-2022 Episodic Other fractures (20 sources) Multiple pelvic fractures; Translations: [Multiple fractures [...] Chronic Other nutritional; endocrine; and metabolic disorders (9 sources) Obese class I; Translations: [Obesity, unspecified] Onset: 09-13-2021 10-24-2022 Chronic Other nutritional; endocrine; and metabolic disorders (9 sources) Obesity; Translations: [Obesity, unspecified] Onset: 10-24-2022 10-24-2022 Chronic Pathological fracture (20 sources) H/O: fragility fracture; Translations: [Personal history of (healed) osteoporosis fracture] Onset: 11-06-2022 Episodic Residual codes; unclassified (20 sources) Edema; Translations: [Edema, unspecified] Onset: 03-19-2015 07-03-2021 Episodic Secondary malignancies (13 sources) Secondary malignant neoplasm of bone; Translations: [Secondary malignant neoplasm of bone] Onset: 01-30-2023 Chronic Past or Other Problems Problem Classification Problem Date Documented Da te Episodic/Chronic Mood disorders (9 sources) Mood disorders Onset: 10-24-2022 10-24-2022 Mycoses (9 sources) Onychomycosis; Translations: [Tinea unguium] Onset: 09-19-2022 09-19-2022 Episodic Nonmalignant breast conditions (20 sources) Lump of upper outer quadrant of breast; Translations: [Lump in upper outer quadrant of right breast] Onset: 10-24-2022 07-04-2021 Episodic Other connective tissue disease (9 sources) Pain of toe of left foot; Translations: [Pain in left toe(s)] Onset: 09-19-2022 09-19-2022 Episodic Other connective tissue disease (9 sources) Pain of toe of right foot; Translations: [Pain in right toe(s)] Onset: 09-19-2022 09-19-2022 Episodic Residual codes; unclassified (9 sources) H/O: high risk medication; Translations: [Personal history of other drug therapy] Onset: 03-19-2015 10-24-2022 Episodic Urinary tract infections (3 sources) Urinary tract infectious disease; Translations: [Urinary tract infection, site not specified] Onset: 12-19-2022 Episodic Results Test Name Value Interpretation Reference Range Facility GLUCOSE POCT GLUCOMETERSon 0 09-30-2024 Glucose [Mass/Vol] 127 mg/dL [facility] Comment on above: Random Glucose Refer ence Range is dependent on time and content of last meal. Glucose of more than 200 mg/dL in a nonstressed, ambulatory subject supports the diagnosis of Diabetes Mellitus. [facility] Glucose Glucometer (BldC) [M ass/Vol]Ordered By: Senthil Caldera on 09-30-2024 Glucose [Mass/Vol] Capillary blood gluc ose measurement by glucometer (mass/volume) [facility] Comment on above: Random Glucose Refer ence Range is dependent on time and content of last meal. Glucose of more than 200 mg/dL in a nonstressed, ambulatory subject supports the diagnosis of Diabetes Mellitus. Glucose Poct Glucometerson 0 09-30-2024 Glucose [Mass/Vol] 127 mg/dL Normal [facility] Comment on above: Result Comment: [place] Glucose Reference Range is dependent on time and content of last meal. Glucose of more than 200 mg/dL in a nonstressed, ambulatory subject supports the diagnosis of Diabetes Mellitus. PERFORMED BY: [facility] [address] [place] [address] PATHOLOGIST HOG WORKER KIKI URIBE M.D. Performed By: #### G EDOUARD #### Point of Care testing , PET tumor subq tx strat sb-m ton 09-30-2024 PET tumor subq tx strat sb-mt [facility] Main [place] [address] [place] [address] Nuclear Medicine Report Signed Patient: Marlen Staley MR#: [id number] 65 : 1950 Acct:[id number] Age/Sex: 74 / F ADM Date: 09/30/24 Loc: Room: Type: [facility] Attending Dr: Senthil Caldera - [facility] [place] Copies to: Fady Muir Jr, DO Timothy Adamowicz, DO Ordering Provider: Senthil Caldera DO Date of Service: 09/30/24 PET/PET tumor subq tx strat sb-mt: breast cancer PET/CT FUSION IMAGING CLINICAL INFORMATION: Colon cancer breast cancer. COMPARISON : Prior PET/CT 08/17/2024 TECHNIQUE: Noncontrasted CT scan from the base of the skull to the upper thigh followed by PET imaging. Multiplanar PET/CT fusion images. Blood Glucose : 129 mg/dL The F-18 FDG 12.89mCi. FINDINGS: Neck: No focal abnormal activity. Chest:1 demonstrated residual abnormal activity involving the right breast, SUV max 4.9. No abnormal activity is seen involving the left breast. No abnormal activity is seen involving the axillary regions. No abnormal activity is seen involving the lungs. There appears to be a FDG avid left paratracheal lymph node, SUV max of 3.0. Abdomen/pelvis: No focal abnormal activity. Soft tissue/bones: No focal abnormal activity. CT findings: No pericardial or pleural effusions. No pneumothorax. No free air or free fluid. Healed remote fracture left pubic rami. PET/PET tumor subq tx strat sb-mt IMPRESSION: Residual abnormal activity involving the right breast consistent with residual disease. FDG avid left paratracheal lymph node new since prior PET/CT. Progression of disease cannot BE excluded. Impression dictated by: Fady Muir Jr., D.O. 09/30/2024 11:48 AM Dictation Location: [place] [address] Transcribed By: LENNOX 09/30/24 1148 Dictated By: Fady Muir Jr, DO 09/30/24 1057 Signed By: 09/30/24 1148 Normal [facility] GLUCOSE POCT GLUCOMETERSon 0 08-17-2024 [facility] Glucose Glucometer (BldC) [M ass/Vol]Ordered By: Senthil Caldera on 08-17-2024 Glucose [Mass/Vol] Capillary blood gluc ose measurement by glucometer (mass/volume) [facility] Comment on above: Random Glucose Refer ence Range is dependent on time and content of last meal. Glucose of more than 200 mg/dL in a nonstressed, ambulatory subject supports the diagnosis of Diabetes Mellitus. Glucose Poct Glucometerson 0 08-17-2024 Glucose [Mass/Vol] 121 mg/dL Normal [facility] Comment on above: Random Glucose Refer ence Range is dependent on time and content of last meal. Glucose of more than 200 mg/dL in a nonstressed, ambulatory subject supports the diagnosis of Diabetes Mellitus. Result Comment: [facility] Glucose Reference Range is dependent on time and content of last meal. Glucose of more than 200 mg/dL in a nonstressed, ambulatory subject supports the diagnosis of Diabetes Mellitus. PERFORMED BY: [place] [address] PATHOLOGIST HOG WORKER LORIE GAGE M.D. Performed By: #### G LUALEXANDER #### Point of Care testing , PET tumor subq tx strat sb-[facility] 08-[facility]24 PET tumor subq tx strat sb-mt [facility] [place] [place] [address] Nuclear Medicine Report Signed Patient: Marlen Staley MR#: [id number] 65 : 1950 Acct:[id number] Age/Sex: 74 / F ADM Date: 08/17/24 Loc: Room: Type: [facility] Attending Dr: Senthil Caldera - [facility] DO Copies to: Fady Muir Jr, DO Senthil Caldera DO Ordering Provider: Senthil Caldera DO Date of Service: 08/17/24 PET/PET tumor subq tx strat sb-mt: BREAST PET/CT FUSION IMAGING CLINICAL INFORMATION: Breast cancer COMPARISON : Prior PET/CT 04/29/2024 TECHNIQUE: Noncontrasted CT scan from the base of the skull to the upper thigh followed by PET imaging. Multiplanar PET/CT fusion images. Blood Glucose : 121 mg/dL The F-18 FDG 11.32mCi. FINDINGS: Neck: No abnormal activity. Chest:Persistent abnormal activity is seen involving the right breast, SUV max of 3. Subthreshold FDG avid right axillary lymph nodes, SUV max of 1.6. No abnormal activity is seen involving the lungs are mediastinum. Abdomen/pelvis: No abnormal activity. Soft tissue/bones: No abnormal activity. CT findings: No pneumothorax. No pericardial pleural effusions. No free air or free fluid. PET/PET tumor subq tx strat sb-mt IMPRESSION: No significant change in PET/CT findings compared to the prior study from 04/29/2024. Residual abnormal activity is seen involving the right breast with subthreshold activity involving right axillary lymph nodes. Impression dictated by: Fady Muir Jr., DAspenOAspen 08/17/2024 3:15 PM Dictation Location: [place] [address] Transcribed By: [facility] 08/17/24 1515 Dictated By: Fady Muir Jr, DO 08/17/24 1455 Signed By: 08/17/24 1515 Normal [facility] GLUCOSE POCT GLUCOMETERSon 0 04-29-2024 Glucose [Mass/Vol] 182 mg/dL [facility] Comment on above: Random Glucose Refer ence Range is dependent on time and content of last meal. Glucose of more than 200 mg/dL in a nonstressed, ambulatory subject supports the diagnosis of Diabetes Mellitus. [facility] Glucose Glucometer (BldC) [M ass/Vol]Ordered By: Senthil Caldera on 04-29-2024 Glucose [Mass/Vol] Capillary blood gluc ose measurement by glucometer (mass/volume) [facility] Comment on above: Random Glucose Refer ence Range is dependent on time and content of last meal. Glucose of more than 200 mg/dL in a nonstressed, ambulatory subject supports the diagnosis of Diabetes Mellitus. Glucose Poct Glucometerson 0 04-29-2024 Glucose [Mass/Vol] 182 mg/dL Normal [facility] Comment on above: Result Comment: [facility] Glucose Reference Range is dependent on time and content of last meal. Glucose of more than 200 mg/dL in a nonstressed, ambulatory subject supports the diagnosis of Diabetes Mellitus. PERFORMED BY: [place] [address] PATHOLOGIST HOG WORKER LORIE GAGE M.D. Performed By: #### G LULS #### Point of Care testing , PET tumor subq tx strat sb-m ton 04-29-2024 PET tumor subq tx strat sb-mt [facility] Main [place] [id number] Nuclear Medicine Report Signed Patient: Marlen Staley MR#: [id number] 65 : 1950 Acct:[id number] Age/Sex: 73 / F ADM Date: 04/29/24 Loc: Room: Type: [facility] Attending Dr: Senthil Caldera - [facility] [place] Copies to: MD Senthil Guo DO Ordering Provider: Senthil Caldera DO Date of Service: 04/29/24 PET/PET tumor subq tx strat sb-mt: Breast cancer PET/CT FUSION IMAGING CLINICAL INFORMATION: Breast cancer COMPARISON : PET/CT 12/30/2023 TECHNIQUE: Noncontrasted CT scan from the base of the skull to the upper thigh followed by PET imaging. Multiplanar PET/CT fusion images. The blood sugar is 189mg/dL. The F-18 FDG amount is 12mCi. FINDINGS: Neck: Relatively symmetric activity within the neck musculature and submandibular glands , Likely physiologic Chest: Right breast mass represents a decrease in size and with substantially diminished uptake measuring up to 2.1 SUV. Subcentimeter right axillary lymph node 1.8 SUV No additional foci of hypermetabolic activity within the chest. Abdomen/pelvis: No FDG avid hypermetabolic activity Soft tissue/bones: No abnormally elevated FDG avid hypermetabolic activity. CT findings: Heterogeneously enlarged left thyroid lobe 4.5 cm AP dimension. Cardiomegaly with coronary artery calcifications. There is a moderate size hiatal hernia. Bibasilar atelectasis plus parenchymal bands both lower lobes. Left renal cyst. Degenerative changes of the thoracolumbar spine and shoulders. Degenerative changes of the bilateral hips. PET/PET tumor subq tx strat sb-mt IMPRESSION: Minimal residual disease right breast and right axilla, this suggests a favorable treatment response. No evidence of new or progressive disease. Impression dictated by: Carlos Guaman M.D.04/29/2024 4:17 PM Dictation Location: [place] [address] Transcribed By: [facility] 04/29/24 1617 Dictated By: Carlos Guaman MD 04/29/24 1607 Signed By: 04/29/24 1617 Normal [facility] ALL CBC WITH AUTO DIFFon BASOPHILS ABSOLUTE AUTO 0.1 [facility] Basophils/100 WBC (Bld) 2.7 % High 0.2 - 2.0 % [facility] Eosinophils/100 WBC (Bld) 3.5 % 0.9 - 7.0 % [facility] Erythrocyte distribution width (RBC) [Ratio] 13.6 % 11.0 - 15.0 % [facility] Hematocrit (Bld) [Volume fraction] 32.2 % Low 36.0 - 48.0 % [facility] Hemoglobin (Bld) [Mass/Vol] 10.3 g/dL Low 12.0 - 16.0 g/dL [facility] IMMATURE GRANULOCYTES ABS AUTO 0.03 [facility] Immature granulocytes/100 WBC (Bld) 0.7 % High 0.0 - 0.5 % [facility] Interpretation and review of laboratory results Abnormal [facility] LYMPHOCYTES ABSOLUTE AUTO 1.4 [facility] Lymphocytes/100 WBC (Bld) 33.9 % 20.5 - 60.0 % [facility] MCH (RBC) [Entitic mass] 33.3 pg 26.7 - 34.0 pg [facility] MCHC (RBC) [Mass/Vol] 32.0 g/dL 29.9 - 35.2 g/dL [facility] MCV (RBC) [Entitic vol] 104.2 fL High 81.0 - 99.0 fL [facility] MONOCYTES ABSOLUTE AUTO 0.3 [facility] Monocytes/100 WBC (Bld) 6.2 % 1.7 - 12.0 % [facility] NEUTROPHILS ABSOLUTE AUTO 2.1 [facility] Neutrophils/100 WBC (Bld) 53.0 % 43.0 - 75.0 % [facility] Platelet mean volume (Bld) [Entitic vol] 9.3 fL Low 9.5 - 13.5 fL [facility] TBH EO # 0.1 [facility]H PLT 210 [facility] TB RBC 3.09 Low [facility] WBC 4.0 [facility] Capillary blood glucose rebecca urement by glucometer (mass/volume)Ordered By: Senthil Caldera on 12-30-2023 Glucose [Mass/Vol] 121 mg/dL Normal [facility] Comment on above: Random Glucose Refer ence Range is dependent on time and content of last meal. Glucose of more than 200 mg/dL in a nonstressed, ambulatory subject supports the diagnosis of Diabetes Mellitus. Result Comment: [facility] Glucose Reference Range is dependent on time and content of last meal. Glucose of more than 200 mg/dL in a nonstressed, ambulatory subject supports the diagnosis of Diabetes Mellitus. PERFORMED BY: [place] [address] PATHOLOGIST HOG WORKER JERICA JO M.D. Performed By: #### G LULS #### Point of Care testing , GLUCOSE POCT GLUCOMETERSon 0 12-30-2023 Glucose [Mass/Vol] 121 mg/dL [facility] Comment on above: Random Glucose Refer ence Range is dependent on time and content of last meal. Glucose of more than 200 mg/dL in a nonstressed, ambulatory subject supports the diagnosis of Diabetes Mellitus. [facility] PET tumor subq tx strat sb-m ton 12-30-2023 PET tumor subq tx strat sb-mt [facility] [place] [place] [address] Nuclear Medicine Report Signed Patient: Marlen Staley MR#: [id number] 65 : 1950 Acct:[id number] Age/Sex: 73 / F ADM Date: 12/30/23 Loc: Room: Type: REG CLI Attending Dr: Senthil Caldera - [facility] [place] Copies to: Audi Rogers II, MD Timothy Adamowicz, DO Ordering Provider: Senthil Caldera DO Date of Service: 12/30/23 PET/PET tumor subq tx strat sb-mt: Breast Cancer PET tumor subq tx strat sb-mt 12/30/2023 8:21 AM SIGNS AND SYMPTOMS: Right-sided breast cancer, history of bone metastases, follow-up PROTOCOL: PET images were obtained after intravenous radiotracer administration. Images were obtained from skull base to mid thigh. Low-dose CT images were obtained from skull base to mid thigh. After attenuation correction of PET imaging, fused PET CT images were generated and reconstructed in axial, sagittal, and coronal planes. COMPARISON: 08/30/2023 RADIOPHARMACEUTICAL: 10.75 mCi of intravenous fluorine 18 FDG. Blood glucose: 121 mg/dL. FINDINGS: There is redemonstration of a PET avid mass in the right breast which is increased size now measuring at least 3.8 cm in greatest dimension. There is a maximum SUV of 9.8. FDG avid right axillary lymph nodes are noted with a maximum SUV of 2.7. This is better defined when compared to the prior exam. There is physiologic radiotracer accumulation within the brain, myocardium, liver, spleen, kidneys, bladder, and bowel. There is physiologic tracer tracer accumulation in the paraspinous musculature of the neck. Simple cysts are noted in the renal cortices. There is a hiatal hernia with gastric fundus in the lower mediastinum. No additional abnormal foci of radiotracer accumulation are noted suggesting distant metastatic disease. PET/PET tumor subq tx strat sb-mt IMPRESSION: There is an enlarging right breast mass which is FDG avid suggesting interval disease progression locally. There are slightly more prominent and FDG avid right axillary lymph nodes which are better defined when compared to the prior exam and are suggestive of axillary denice metastatic disease. Impression dictated by: Audi Rogers M.D.12/30/2023 2:23 PM Dictation Location: [place] [address] Transcribed By: [facility] 12/30/23 1423 Dictated By: Audi Rogers II, MD 12/30/23 1413 Signed By: 12/30/23 1423 [facility] ALL CBC WITH AUTO DIFFon BASOPHILS ABSOLUTE AUTO 0.1 N [facility] Basophils/100 WBC (Bld) 2.8 % High 0.2 - 2.0 % [facility] Eosinophils/100 WBC (Bld) 4.9 % 0.9 - 7.0 % [facility] Erythrocyte distribution width (RBC) [Ratio] 14.0 % 11.0 - 15.0 % [facility] Hematocrit (Bld) [Volume fraction] 30.0 % Low 36.0 - 48.0 % [facility] Hemoglobin (Bld) [Mass/Vol] 9.9 g/dL Low 12.0 - 16.0 g/dL [facility] IMMATURE GRANULOCYTES ABS AUTO 0.03 [facility] Immature granulocytes/100 WBC (Bld) 0.8 % High 0.0 - 0.5 % [facility] Interpretation and review of laboratory results Abnormal [facility] LYMPHOCYTES ABSOLUTE AUTO 1.3 [facility] Lymphocytes/100 WBC (Bld) 32.5 % 20.5 - 60.0 % [facility] MCH (RBC) [Entitic mass] 34.1 pg High 26.7 - 34.0 pg [facility] MCHC (RBC) [Mass/Vol] 33.0 g/dL 29.9 - 35.2 g/dL [facility] MCV (RBC) [Entitic vol] 103.4 fL High 81.0 - 99.0 fL [facility] MONOCYTES ABSOLUTE AUTO 0.3 N [facility] Monocytes/100 WBC (Bld) 7.4 % 1.7 - 12.0 % [facility] NEUTROPHILS ABSOLUTE AUTO 2.0 [facility] Neutrophils/100 WBC (Bld) 51.6 % 43.0 - 75.0 % [facility] Platelet mean volume (Bld) [Entitic vol] 9.3 fL Low 9.5 - 13.5 fL [facility] TBH EO # 0.2 [facility] TBH PLT 194 [facility] TB RBC 2.90 Low [facility] TB WBC 3.9 Low [facility] Laboratory Outside Office Co pyon 10-03-2023 Laboratory Outside Office Copy [id number]#1.00TIFF Normal [facility] Laboratory Outside Office Copy [id number]#1.00TIFF Normal [facility] Erythropoiet Lvlon 4 Erythropoietin (EPO) Qn 16.8 mIU/mL Invalid Interpretation Code 2.6-18.5 [facility] Comment on above: Result Comment: [facility] UniCel DxI 800 Immunoassay System Values obtained with different assay methods or kits cannot be used interchangeably. Results cannot be interpreted as absolute evidence of the presence or absence of malignant disease. Performed at: [address] [id number] PhD [place] Avelar Performed By: #### 1 [id number] #### [facility] Laboratory [address] [place] [address] Outside Radiologyon 09-13-19 24 Outside Radiology [id number]#1.00TIFF Normal [facility] CBC w/ Auto Diffon 4 Basophils/100 WBC (Bld) 1.1 % Normal 0.0-2.0 [facility] Comment on above: Performed By: #### 2 [id number] #### [facility] Laboratory [address] [place] [address] Basophils/Leukocytes Auto (Bld) [Pure # fraction] 0.0 E9/L Normal 0.0-0.2 [facility] Comment on above: Performed By: #### 2 [id number] #### [facility] [address] [place] [address] Eosinophils (Bld) [#/Vol] 0.2 E9/L Normal 0.0-0.5 [facility] Comment on above: Performed By: #### 2 [id number] #### [facility] [address] [place] [address] Eosinophils/100 WBC (Bld) 4.3 % Normal 0.0-8.0 [facility] Comment on above: Performed By: #### 2 [id number] #### [facility] [address] [place] [address] Erythrocyte distribution width (RBC) [Ratio] 14.6 % High 10.9-14.2 [facility] Comment on above: Performed By: #### 2 [id number] #### [facility] [address] [place] [address] Hematocrit (Bld) [Volume fraction] 35.9 % Normal 34.0-46.0 [facility] Comment on above: Performed By: #### 2 [id number] #### [facility] [address] [place] [address] Hemoglobin (Bld) [Mass/Vol] 11.7 g/dL Low 12.0-16.0 [facility] Comment on above: Performed By: #### 2 [id number] #### [facility] Laboratory [address] [place] [address] Lymphocytes (Bld) [#/Vol] 1.3 E9/L Normal 1.0-4.0 [facility] Comment on above: Performed By: #### 2 [id number] #### [facility] [address] [place] [address] Lymphocytes/100 WBC (Bld) 29.3 % Normal 14.0-50.0 [facility] Comment on above: Performed By: #### 2 [id number] #### [facility] [address] [place] [address] MCH (RBC) [Entitic mass] 33.9 pg Normal 27.0-34.0 [facility] Comment on above: Performed By: #### 2 [id number] #### [facility] [address] [place] [address] MCHC (RBC) [Mass/Vol] 32.7 g/dL Normal 31.4-36.0 [facility] Comment on above: Performed By: #### 2 [id number] #### [facility] [address] [place] [address] MCV (RBC) [Entitic vol] 103.7 fL High 80.0-100.0 [facility] Comment on above: Performed By: #### 2 [id number] #### [facility] [address] [place] [address] Monocytes (Bld) [#/Vol] 0.2 E9/L Normal 0.2-1.0 [facility] Comment on above: Performed By: #### 2 [id number] #### [facility] [address] [place] [address] Neutrophils (Bld) [#/Vol] 2.7 E9/L Normal 2.0-7.5 [facility] Comment on above: Performed By: #### 2 [id number] #### [facility] [address] [place] [address] Neutrophils/100 WBC (Bld) 60.4 % Normal 36.0-75.0 [facility] Comment on above: Performed By: #### 2 [id number] #### [facility] [address] [place] [address] Platelet mean volume (Bld) [Entitic vol] 6.8 fL Normal 6.4-10.8 [facility] Comment on above: Performed By: #### 2 [id number] #### [facility] [address] [place] [address] Platelets (Bld) [#/Vol] 245.0 E9/L Normal 150. 0-500. 0 [facility] Comment on above: Performed By: #### 2 105386 #### [facility] [address] [place] [address] RBC (Bld) [#/Vol] 3.5 E12/L Low 4.3-5.9 [facility] Comment on above: Performed By: #### 2 [id number] #### [facility] [address] [place] [address] WBC corrected for nucl RBC Auto (Bld) [#/Vol] 4.5 E9/L Normal 4.0-11.0 [facility] Comment on above: Performed By: #### 2 [id number] #### [facility] [address] [place] [address] CHEMISTRYOrdered By: SYSTEM SYSTEM on 09-12-2023 Albumin [...] 09-12-2023 Albumin [Mass/Vol] 3.8 g/dL Normal 3.3-5.0 [facility] Comment on above: Performed By: #### 2 [id number] #### [facility] [address] [place] [address] Albumin/Globulin (S) [Mass conc ratio] 1.2 Normal 1.1-2.2 [facility] Comment on above: Performed By: #### 2 [id number] #### [facility] [address] [place] [address] ALP [Catalytic activity/Vol] 119 Int._Unit/L High 21- [facility] Comment on above: Performed By: #### 2 [id number] #### [facility] [address] [place] [address] ALT No additional P-5'-P [Catalytic activity/Vol] 11 Int._Unit/L Normal 6-46 [facility] Comment on above: Performed By: #### 2 451519 #### [facility] [address] [place] [address] Anion gap [Moles/Vol] 13 mmol/L Normal 6-16 [facility] Comment on above: Performed By: #### 2 [id number] #### [facility] [address] [place] [address] AST [Catalytic activity/Vol] 12 Int._Unit/L Normal 5-43 [facility] Comment on above: Performed By: #### 2 [id number] #### [facility] [address] [place] [address] Bilirubin [Mass/Vol] 0.3 mg/dL Normal 0.0-1.1 [facility] Comment on above: Performed By: #### 2 [id number] #### [facility] [address] [place] [address] Calcium [Mass/Vol] 9.1 mg/dL Normal 8.9-11.1 [facility] Comment on above: Performed By: #### 2 [id number] #### [facility] [address] [place] [address] Chloride [Moles/Vol] 111 mmol/L Normal 101-111 [facility] Comment on above: Performed By: #### 2 [id number] #### [facility] [address] [place] [address] CO2 [Moles/Vol] 22 mmol/L Normal 21-31 [facility] Comment on above: Performed By: #### 2 351410 #### [facility] [address] [place] [address] Creatinine [Mass/Vol] 1.9 mg/dL High 0.5-1.3 [facility] Comment on above: Performed By: #### 2 [id number] #### [facility] [address] [place] [address] Globulin (S) [Mass/Vol] 3.1 g/dL Normal 1.4-4.0 [facility] Comment on above: Performed By: #### 2 [id number] #### [facility] [address] [place] [address] Glucose [Mass/Vol] 197 mg/dL Normal 55-199 [facility] Comment on above: Performed By: #### 2 [id number] #### [facility] [address] [place] [address] Potassium [Moles/Vol] 4.8 mmol/L Normal 3.5-5.3 [facility] Comment on above: Performed By: #### 2 156806 #### [facility] [address] [place] [address] Protein [Mass/Vol] 6.9 g/dL Normal 6.0-7.8 [facility] Comment on above: Performed By: #### 2 259138 #### [facility] [address] [place] [address] Sodium [Moles/Vol] 141 mmol/L Normal 135-145 [facility] Comment on above: Performed By: #### 2 176803 #### [facility] [address] [place] [address] Urea nitrogen [Mass/Vol] 44 mg/dL High 5-21 [facility] Comment on above: Performed By: #### 2 362039 #### [facility] [address] [place] [address] Urea nitrogen/Creatinine [Mass ratio] 23 No Units High 10-20 [facility] Comment on above: Performed By: #### 2 [id number] #### [facility] [address] [place] [address] Consent for Treatmenton 08-21 Consent for Treatment [id number]#1.00TIFF Normal [facility] Ferritinon 09-12-2023 Ferritin [Mass/Vol] 193 ng/mL Normal 11-307 [facility] Comment on above: Performed By: #### 2 [id number] #### [facility] [address] [place] [address] Folateon 09-12-2023 Folate [Mass/Vol] ng/mL Normal >=6.7 [facility] Comment on above: Performed By: #### 2 580883 #### [facility] [address] [place] [address] HEMATOLOGYOrdered By: SYSTEM SYSTEM on 09-12-2023 Basophils/100 [...] 09-12-2023 Iron [Mass/Vol] 81 microgram/dL Normal 35-153 [facility] Comment on above: Performed By: #### 2 [id number] #### [facility] [address] [place] [address] Iron Saturationon 09-12-2023 Iron binding capacity [Mass/Vol] 277 microgram/dL Normal 250-400 [facility] Comment on above: Performed By: #### 2 440663 #### [facility] [address] [place] [address] Iron saturation [Mass fraction] 29 % Normal 20-50 [facility] Comment on above: Performed By: #### 2 [id number] #### [facility] [address] [place] [address] Oncology Progress Noteon Oncology Progress Note Chief [...] cm in length. ER greater than 95, AK greater than 95. Her2 1+ (this is [...] injections 01/30/23 she spent some time in [facility] maybe last month. They didnt have a bed afer her last hospitalization (for uti) a few weeks ago and so upon discharge went to [facility]. Her friends are concerned she will not be safe if she goes home. she seems to have a bad memory. her is also in [facility] continues [facility], despite our meticulous calender she seems to have trouble remembering to taek this when she was at home. She insists she is getting better and wants to go home. 05/01/23 she is in [facility]. she is convinced she will be able to be independent again. She is not walking even with a walker. continues [facility]. anemi (more content not included)... Normal [facility] Physician Orderon 09-12-2023 Physician Order [id number]#1.00TIFF Normal [facility] Physician Order [id number]#1.00TIFF [facility] Physician Order [id number]#1.00TIFF Normal [facility] Transferrinon 09-12-2023 Transferrin [Mass/Vol] 198 mg/dL Low 200-370 [facility] Comment on above: Performed By: #### 2 [id number] #### [facility] [address] [place] [address] Vit B12on 09-12-2023 Cobalamin (Vitamin B12) [Mass/Vol] 524 pg/mL Normal 50-1500 [facility] Comment on above: Performed By: #### 2 [id number] #### [facility] [address] [place] [address] eGFRon 09-12-2023 eGFR 27 mL/min/1.73 m2 Low >=59 [facility] Comment on above: Order Comment: Order added by Discern Expert. Performed By: #### 1 [id number] #### [facility] Laboratory [address] [place] [address] Lab Reportson 09-09-2023 Lab Reports [id number]#1.00TIFF [facility] Glucose Glucometer (BldC) [M ass/Vol]Ordered By: Senthil Caldera on 08-30-2023 Glucose [Mass/Vol] 127 mg/dL [facility] Comment on above: Random Glucose Refer ence Range is dependent on time and content of last meal. Glucose of more than 200 mg/dL in a nonstressed, ambulatory subject supports the diagnosis of Diabetes Mellitus. Physician Orderon 06-27-2023 Physician Order [id number]#1.00TIFF [facility] Consent for Treatmenton 05-24 Consent for Treatment [id number]#1.00TIFF [facility] ED Pat Eduon 06-12-2023 ED Pat [...] Keep items that you use often in fksz-ml-iixoa places. Lower the shelves around your home [...] or contrast paint or tape to clearly audi and help you see: ? Grab bars [...] the way. ? Do not use floor cuban or wax that makes floors slippery. What [...] Control and Prevention, STEADI: www.cdc.gov ? National [place] on Aging: www.derrick.nih.gov Contact a doctor if: [...] provider. Document Revised: 01/08/2022 Document Reviewed: 11/09/2020 [employer] Patient Education ? 2022 [employer]Syn. Nutrition High-Protein and H (more content not included)... Normal [facility] ED [facility] Caregiving Fall Prevention in the Home, Adult [...] Keep items that you use often in ugxl-kj-yehgb places. Lower the shelves around your home [...] or contrast paint or tape to clearly audi and help you see: ? Grab bars [...] the way. ? Do not use floor cuban or wax that makes floors slippery. What [...] Control and Prevention, STEADI: www.cdc.gov ? National [place] on Aging: www.derrick.nih.gov Contact a doctor if: [...] provider. Document Revised: 01/08/2022 Document Reviewed: 11/09/2020 [employer] Patient Education ? 2022 [employer]. Obstetrics and Gynecology Br (more content not included)... Normal [facility] ED [facility] Caregiving Fall Prevention in the Home, Adult [...] Keep items that you use often in ykmf-mz-kpvsl places. Lower the shelves around your home [...] or contrast paint or tape to clearly audi and help you see: ? Grab bars [...] the way. ? Do not use floor cuban or wax that makes floors slippery. What [...] Control and Prevention, STEADI: www.cdc.gov ? National Live [place] on Aging: www.derrick.nih.gov Contact a doctor if: [...] provider. Document Revised: 01/08/2022 Document Reviewed: 11/09/2020 [employer] Patient Education ? 2022 [employer] Josh Wilhelm [facility] Oncology Progress Noteon Oncology Progress Note [...] cm in length. ER greater than 95, AK greater than 95. Her2 1+ (this is [...] injections 01/30/23 she spent some time in [facility] maybe last month. They didnt have a bed afer her last hospitalization (for uti) a few weeks ago and so upon discharge went to [facility]. Her friends are concerned she will not be safe if she goes home. she seems to have a bad memory. her is also in [facility] continues kisquali, despite our meticulous calender she seems to have trouble remembering to taek this when she was at home. She insists she is getting better and wants to go home. 05/01/23 she is in [facility]. she is convinced she will be able to be independent again. She is not walking even with a walker. continues kisquali. anemic on recent labs. 06/12/23 Continues kisquali and arimidex. recent PET/CT. notes interval enlargement of the right breast mass with development of 2 nodules with increased hypermetab (more content not included)... Normal [facility] Physician Orderon 06-12-2023 Physician Order [id number]#1.00TIFF Normal [facility] Outside Labson 06-06-2023 Outside Labs [id number]#1.00TIFF Normal [facility] Outside Radiologyon 06-06-19 Outside Radiology [id number]#1.00TIFF Normal [facility] ALL CBC WITH AUTO DIFFon BASOPHILS ABSOLUTE AUTO 0.1 N S [facility] Basophils/100 WBC (Bld) 1.2 % 0.2 - 2.0 % [facility] Eosinophils/100 WBC (Bld) 3.8 % 0.9 - 7.0 % [facility] Erythrocyte distribution width (RBC) [Ratio] 13.4 % 11.0 - 15.0 % [facility] Hematocrit (Bld) [Volume fraction] 29.4 % Low 36.0 - 48.0 % [facility] Hemoglobin (Bld) [Mass/Vol] 9.4 g/dL Low 12.0 - 16.0 g/dL [facility] IMMATURE GRANULOCYTES ABS AUTO 0.02 [facility] Immature granulocytes/100 WBC (Bld) 0.4 % 0.0 - 0.5 % [facility] Interpretation and review of laboratory results Abnormal [facility] LYMPHOCYTES ABSOLUTE AUTO 1.8 [facility] Lymphocytes/100 WBC (Bld) 35.5 % 20.5 - 60.0 % [facility] MCH (RBC) [Entitic mass] 33.5 pg 26.7 - 34.0 pg [facility] MCHC (RBC) [Mass/Vol] 32.0 g/dL 29.9 - 35.2 g/dL [facility] MCV (RBC) [Entitic vol] 104.6 fL High 81.0 - 99.0 fL [facility] MONOCYTES ABSOLUTE AUTO 0.4 N [facility] Monocytes/100 WBC (Bld) 8.2 % 1.7 - 12.0 % [facility] NEUTROPHILS ABSOLUTE AUTO 2.5 [facility] Neutrophils/100 WBC (Bld) 50.9 % 43.0 - 75.0 % [facility] Platelet mean volume (Bld) [Entitic vol] 9.2 fL Low 9.5 - 13.5 fL [facility] TBH EO # 0.2 [facility] PLT 182 [facility] RBC 2.81 Low [facility] WBC 5.0 [facility] GLUCOSE POCT GLUCOMETERSon 0 05-31-2023 Glucose [Mass/Vol] 110 mg/dL [facility] Comment on above: Random Glucose Refer ence Range is dependent on time and content of last meal. Glucose of more than 200 mg/dL in a nonstressed, ambulatory subject supports the diagnosis of Diabetes Mellitus. [facility] Glucose Glucometer (BldC) [M ass/Vol]Ordered By: Senthil Caldera on 05-31-2023 Glucose [Mass/Vol] 110 mg/dL [facility] Comment on above: Random Glucose Refer ence Range is dependent on time and content of last meal. Glucose of more than 200 mg/dL in a nonstressed, ambulatory subject supports the diagnosis of Diabetes Mellitus. ALL CBC WITH AUTO DIFFon BASOPHILS ABSOLUTE AUTO 0.1 N [facility] Basophils/100 WBC (Bld) 2.0 % 0.2 - 2.0 % [facility] Eosinophils/100 WBC (Bld) 3.3 % 0.9 - 7.0 % [facility] Erythrocyte distribution width (RBC) [Ratio] 13.2 % 11.0 - 15.0 % [facility] Hematocrit (Bld) [Volume fraction] 28.4 % Low 36.0 - 48.0 % [facility] Hemoglobin (Bld) [Mass/Vol] 9.2 g/dL Low 12.0 - 16.0 g/dL [facility] IMMATURE GRANULOCYTES ABS AUTO 0.02 [facility] Immature granulocytes/100 WBC (Bld) 0.4 % 0.0 - 0.5 % [facility] Interpretation and review of laboratory results Abnormal [facility] LYMPHOCYTES ABSOLUTE AUTO 2.0 [facility] Lymphocytes/100 WBC (Bld) 43.8 % 20.5 - 60.0 % [facility] MCH (RBC) [Entitic mass] 33.5 pg 26.7 - 34.0 pg [facility] MCHC (RBC) [Mass/Vol] 32.4 g/dL 29.9 - 35.2 g/dL [facility] MCV (RBC) [Entitic vol] 103.3 fL High 81.0 - 99.0 fL [facility] MONOCYTES ABSOLUTE AUTO 0.3 N [facility] Monocytes/100 WBC (Bld) 6.9 % 1.7 - 12.0 % [facility] NEUTROPHILS ABSOLUTE AUTO 2.0 [facility] Neutrophils/100 WBC (Bld) 43.6 % 43.0 - 75.0 % [facility] Platelet mean volume (Bld) [Entitic vol] 9.0 fL Low 9.5 - 13.5 fL [facility] TBH EO # 0.2 [facility] TBH PLT 226 [facility] TB RBC 2.75 Low [facility] TB WBC 4.5 [facility] Insurance Correspondenceon 0 05-23-2023 Insurance Correspondence [id number]#1.00TIFF Normal [facility] Oncology Noteon 05-20-2023 Oncology Note Per phone call from [place] t-[phone] - she wondered if we had the [...] it but doesn't have any to take. [facility] Comment on above: Result Comment: Elec tronically Signed By: Jane FARMER, Yolande Houston\.br\Date and Time Signed: 05/20/23 14:48 EST Physician Orderon 05-15-2023 Physician Order [id number]#1.00TIFF [facility] Comment on above: Other Comment: wrong patient Physician Orderon 05-14-2023 Physician Order [id number]#1.00TIFF [facility] Outside Labson 05-02-2023 Outside Labs [id number]#1.00TIFF [facility] Outside Labs [id number]#1.00TIFF [facility] Physician Orderon 05-02-2023 Physician Order [id number]#1.00TIFF [facility] Physician Order [id number]#1.00TIFF [facility] Consent for Treatmenton 04-22 Consent for Treatment [id number]#1.00TIFF [facility] Oncology Noteon 05-01-2023 Oncology Note Oncology Care Coordi nator Office Visit/Treatment Note Current Patient Status/Reason: 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 Dr. Caldera saw pt. Treatment Plan: PET at [facility] soon, since pt is corrina machado. CBC, CMP, iron studies, Folate, epo, [id number] before f/u (send orders to [facility]). Kisqali 200 mg 3 PO daily 3 weeks on 1 week off. Follow-Up Appointment Info/Referrals: F/U in 6 weeks. Resources Offered: Pt voiced no questions or concerns to me when I asked. I instructed that [facility] would call for PET, and lab orders would be faxed to [facility]. Pt voiced understanding of same. Pt also to continue Anastrozole PO daily. Normal [facility] Comment on above: Result Comment: [...] cm in length. ER greater than 95, AK greater than 95. Her2 1+ (this is [...] injections 01/30/23 she spent some time in [facility] maybe last month. They didnt have a bed afer her last hospitalization (for uti) a few weeks ago and so upon discharge went to [facility]. Her friends are concerned she will not be safe if she goes home. she seems to have a bad memory. her is also in [facility] continues [facility], despite our meticulous calender she seems to have trouble remembering to taek this when she was at home. She insists she is getting better and wants to go home. 05/01/23 she is in [facility]. she is convinced she will be able to be independent again. She is not walking even with a walker. continues [facility]. anemic on recent labs. Review of Systems Constitutional: Negative. Eye: Negative. Ear/Nose/Mouth/Throat: Negative. Respiratory: Negative. Cardiovascular: Negative. Gastrointes (more content not included)... Normal [facility] Outside Labson 05-01-2023 Outside Labs [id number]#1.00TIFF Normal [facility] ONC - Otheron 02-07-2023 ONC - Other [id number]#1.00TIFF Normal [facility] Physician Orderon 02-05-2023 Physician Order [id number]#1.00TIFF [facility] Consent for Treatmenton 01-20 Consent for Treatment [id number]#1.00TIFF [facility] Oncology Noteon 01-30-2023 Oncology Note Oncology Care Coordwilbert hussain Office Visit/Treatment Note Current Patient Status/Reason: Patient here with friend, Karolina for scheduled clinic visit. I accompanied Dr. Caldera and medical student Nj in room. Patient is currently at [facility]. Labs done at [facility] 01/28/2023 reviewed. Disease process and treatment options discussed. Patient informs she like [facility] and having people around to socialize with. Physical exam done. Treatment Plan: continue Kisqali, monthly labs, PET 04/24/2023 Follow-Up Appointment Info/Referrals: after PET Resources Offered: Orders for [facility] regarding monthly labs filled out. Patient denies any questions/concerns at this time. [facility] Comment on above: Result Comment: [...] cm in length. ER greater than 95, AK greater than 95. Her2 1+ (this is [...] injections 01/30/23 she spent some time in [facility] maybe last month. They didnt have a bed afer her last hospitalization (for uti) a few weeks ago and so upon discharge went to [facility]. Her freinds are concerned she will not be safe if she goes home. she seems to have a bad memory. her is also in [facility] continues kisquali, despite our meticulous calender [...] Negative. Neur (more content not included)... Normal [facility] Outside Labson 01-29-2023 Outside Labs [id number]#1.00TIF F Normal [facility] Outside Labs [id number]#1.00TIF F Normal [facility] Outside Labson 01-28-2023 Outside Labs [id number]#1.00TIFF Normal [facility] Coding Queryon 01-16-2023 Coding Query [...] Query Caller Name: MARLEN STALEY; Caller Number: Isacc [facility] ONC - Otheron 01-16-2023 ONC - Other [id number]#1.00CD:1 [facility] ONC - Otheron 01-09-2023 ONC - Other [id number]#1.00CD:1 [facility] Discharge Instructionson Discharge Instructions [id number]#1.00CD:05 18 [facility] Transfer Documentson 023 Transfer Documents [id number]#1.00CD:1 [facility] CHEMISTRYOrdered By: Lab ROP User on 12-23-2022 Glucose [Mass/Vol] 111 mg/dL High 55 - 99 mg/dL [facility] POC Subsection Comment on above: Result Comment: Navin uriostegui RN/ POC Device SN [id number] Invalid Interpretation Code [facility] P[facility] Subsection POC User ID [id number] Invalid Interpretation Code [facility] POC Subsection POC Username JUAN HENNESSY Invalid Interpretation Code [facility] POC Subsection Capillary Glucose POCon Glucose [Mass/Vol] 111 mg/dL High 55-99 [facility] Comment on above: Result Comment: Navin BOSE Performed By: #### 2 [id number] #### [facility] Laboratory [address] [place] [address] Discharge Note-Nursingon Discharge Note-Nursing MARLEN STALEY :1950 [...] Test Results None Pharmacy Information [facility] Discharge Instructions Please return to ER if symptoms change or worsen. Previously Scheduled Follow-Up Appointments Saturday 2:45 PM EDT With: Senthil Caldera DO Where: [facility] New Follow Up Appointments after Discharge Follow Up with Azar HANKS, NIKOLE Benedict When: Where: [address] [place] [address]- Medications What How Much When Why Instructions [...] your results (more content not included)... Normal [facility] C Urineon 12-22-2022 Bacteria identified [...] Locations R1: This test was performed at: [facility], [address] [place] [address], [address]- , [place], Normal [facility] Comment on above: Performed By: #### 1 [id number], [id number] ####[facility] [address] [place] [address] CHEMISTRYOrdered By: Lab ROP User on 12-22-2022 Glucose [Mass/Vol] 155 mg/dL High 55 - 99 mg/dL [facility] POC Subsection Comment on above: Result Comment: Navin BOSE POC Device SN [id number] Invalid Interpretation Code [facility] P[facility] Subsection POC User ID [id number] Invalid Interpretation Code [facility] P[facility] Subsection POC Username DARRYN SANTOS Invalid Interpretation Code [facility] POC Subsection Glucose [Mass/Vol] 129 mg/dL High 55 - 99 mg/dL [facility] POC Subsection Comment on above: Result Comment: Christine donna Meter POC Device SN [id number] Invalid Interpretation Code [facility] POC Subsection POC User ID [id number] Invalid Interpretation Code [facility] POC Subsection POC Username ROOPA LIM Invalid Interpretation Code [facility] POC Subsection Capillary Glucose POCon Glucose [Mass/Vol] 155 mg/dL High 55-99 [facility] Comment on above: Result Comment: Navin BOSE Performed By: #### 2 [id number], [id number], [id number], [id number], [id number] #### [facility] Laboratory [address] [place] [address] Glucose [Mass/Vol] 129 mg/dL High 55-99 [facility] Comment on above: Result Comment: Christine donna Meter Performed By: #### 2 [id number], [id number], [id number], [id number], [id number] #### [facility] Laboratory [address] [place] [address] Glucose [Mass/Vol] 158 mg/dL High 55-99 [facility] Comment on above: Result Comment: Christine donna Meter Performed By: #### 2 [id number] #### [facility] Laboratory [address] [place] [address] Glucose [Mass/Vol] 144 mg/dL High 55-99 [facility] Comment on above: Result Comment: Navin BOSE Performed By: #### 2 [id number] #### [facility] Laboratory [address] [place] [address] 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 Note - Attila e Manageron 12-22-2022 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 Note - Computer Aided Design Technician CRM spoke with patient. Patient was previous rounded on by Dr Sloan today. Spouse is also patient and is in other bed in room. Patient is alert and oriented. Whiteboard updated and CRM contact # provided. Discussed with patient that [facility] does not have any beds and referral was made to [facility] but they do not take [employer]. Referral was sent to [facility] for both her and her spouse and they have accepted and started precert. Patient becomes upset and states that is to far away and to far for her Family to visit. Discussed only other closer facility is [facility] that takes her and spouse insurance. Patient states she will moose her insurance man and her friend Karolina and discuss with them. Okay for CRM to call Karolina and daughter and update them as well. She does not want CRM to cancel [facility] referral yet a she needs to talk to Karolina. CRM called both Karolina and daughter Helen, no answer and left CRM contact number and VM on dc plans. 1406- Bryan Cervantes called CRM back and is agreeable to [facility] and states it is close for her [...] she is now agreeable to go to [facility] as well as for her spouse to go there and updated her precert was obtained for [facility] and will dc tomorrow as she feels today is to soon for the patient and may upset her too much. 1510- CRM to room and spoke with patient and she is agreeable to go to [facility] SN[facility] now. Discussed precert was obtained and could possible dc today. Patient became upset and said not today she and he spouse need time to get ready and her friend needs to bring her things. Will stay tonight and plan for dc in the am. CRM did explain this to spouse as well and he is agreeable. [facility] Comment on above: Result Comment: Graciela garciaally Signed By: Enoc FARMER, Jolanta\.br\Date and Time [...] mg/dL High (12/22/22 07:31:00) POC Device SN: [id number] (12/22/22 07:31:00) POC User ID: [id number] (12/22/22 07:31:00) POC Username: CATHERINE RHODESI (12/22/22 07:31:00) Problem List/Past Medical History Ongoing [...] Oral, Once a day (at bedtime), PRN [place] 5/325 Tab, 1 tab(s), Oral, q4hr, PRN [...] (at bedtim (more content not included)... Normal [facility] Comment on above: Result Comment: Elec tronically Signed By: Zaheer Sloan DO\.br\Date and Time Signed: 12/22/22 09:47 EDT Auto Diffon 12-21-2022 Basophils/100 WBC (Bld) 2.6 % High 0.0-2.0 [facility] Comment on above: Order Comment: Order Added by Discern Expert. Performed By: #### 2 [id number], [id number], [id number], [id number], [id number] #### [facility] Laboratory [address] [place] [address] Basophils/Leukocytes Auto (Bld) [Pure # fraction] 0.1 E9/L Normal 0.0-0.2 [facility] Comment on above: Order Comment: Order Added by Discern Expert. Performed By: #### 2 [id number], [id number], [id number], [id number], [id number] #### [facility] Laboratory [address] [place] [address] Eosinophils/100 WBC (Bld) 2.5 % Normal 0.0-8.0 [facility] Comment on above: Order Comment: Order Added by Discern Expert. Performed By: #### 2 [id number], [id number], [id number], [id number], [id number] #### [facility] Laboratory [address] [place] [address] Eosinophils/Leukocytes Auto (Bld) [Pure # fraction] 0.1 E9/L Normal 0.0-0.5 [facility] Comment on above: Order Comment: Order Added by Discern Expert. Performed By: #### 2 [id number], [id number], [id number], [id number], [id number] #### [facility] Laboratory [address] [place] [address] Lymphocytes/100 WBC (Bld) 42.1 % Normal 14.0-50.0 [facility] Comment on above: Order Comment: Order Added by Discern Expert. Performed By: #### 2 536044, [id number], 0760413, [id number], [id number] #### [facility] Laboratory [address] [place] [address] Lymphocytes/Leukocytes Auto (Bld) [Pure # fraction] 1.4 E9/L Normal 1.0-4.0 [facility] Comment on above: Order Comment: Order Added by Discern Expert. Performed By: #### 2 350039, 6042672, 9752915, [id number], [id number] #### [facility] Laboratory [address] [place] [address] Monocytes/100 WBC (Bld) 13.6 % Normal 4.0-14.0 [facility] Comment on above: Order Comment: Order Added by Discern Expert. Performed By: #### 2 [id number], [id number], [id number], [id number], [id number] #### [facility] Laboratory [address] [place] [address] Monocytes/Leukocytes Auto (Bld) [Pure # fraction] 0.4 E9/L Normal 0.2-1.0 [facility] Comment on above: Order Comment: Order Added by Discern Expert. Performed By: #### 2 430414, [id number], [id number], [id number], [id number] #### [facility] Laboratory [address] [place] [address] Neutrophils/100 WBC (Bld) 39.2 % Normal 36.0-75.0 [facility] Comment on above: Order Comment: Order Added by Discern Expert. Performed By: #### 2 227606, 9563594, 4299763, 277043392, 93511873 #### [facility] [address] [place] [address] Neutrophils/Leukocytes Auto (Bld) [Pure # fraction] 1.3 E9/L Low 2.0-7.5 [facility] Comment on above: Order Comment: Order Added by Discern Expert. Performed By: #### 2 606198, 0616572, 4859604, 208147894, 17994574 #### [facility] [address] [place] [address] BMPon 12-21-2022 Anion gap [Moles/Vol] 11 mmol/L Normal 6-16 [facility] Comment on above: Performed By: #### 2 177706, 5669779, 2499835, 038698221, 73077435 #### [facility] [address] [place] [address] Calcium [Mass/Vol] 8.9 mg/dL Normal 8.9-11.1 [facility] Comment on above: Performed By: #### 2 889963, 3109826, 3602592, 162011844, 87374074 #### [facility] [address] [place] [address] Chloride [Moles/Vol] 112 mmol/L High 101-111 [facility] Comment on above: Performed By: #### 2 861956, 7926210, 1089512, 939276825, 24422446 #### [facility] [address] [place] [address] CO2 [Moles/Vol] 22 mmol/L Normal 21-31 [facility] Comment on above: Performed By: #### 2 892798, 4301427, 1413944, 681199111, 56343914 #### [facility] [address] [place] [address] Creatinine [Mass/Vol] 1.4 mg/dL High 0.5-1.3 [facility] Comment on above: Performed By: #### 2 545363, 3499621, 3515912, 337377893, 33848838 #### [facility] [address] [place] [address] Glucose [Mass/Vol] 102 mg/dL Normal 55-199 [facility] Comment on above: Result Comment: If t his glucose result represents a fasting glucose, interpretation should refer to the following reference range: 55-99 mg/dL Performed By: #### 2 140312, 5272960, 4366095, 149308358, 49166198 #### [facility] [address] [place] [address] Potassium [Moles/Vol] 4.0 mmol/L Normal 3.5-5.3 [facility] Comment on above: Performed By: #### 2 236076, 4402271, 9312554, 806221021, 14110452 #### [facility] [address] [place] [address] Sodium [Moles/Vol] 141 mmol/L Normal 135-145 [facility] Comment on above: Performed By: #### 2 426814, 2866449, 7494224, 522678053, 68884069 #### [facility] [address] [place] [address] Urea nitrogen [Mass/Vol] 36 mg/dL High 5-21 [facility] Comment on above: Performed By: #### 2 251141, 4585581, 3262950, 312566484, 80440560 #### [facility] [address] [place] [address] Urea nitrogen/Creatinine [Mass ratio] 26 No Units High 10-20 [facility] Comment on above: Performed By: #### 2 504539, 6229031, 7945804, 742115695, 64376759 #### [facility] [address] [place] [address] C Urineon 12-21-2022 Bacteria identified Cx Nom [...] Locations R1: This test was performed at: [facility], [address] [place] [address], [address], [facility] Comment on above: Performed By: #### 2 863908, 4892373, 3951274, 531508163, 68594963 #### [facility] [address] [place] [address] CBC w/ Auto Diffon 3 Erythrocyte distribution width (RBC) [Ratio] 18.4 % High 10.9-14.2 [facility] Comment on above: Performed By: #### 2 877118, 8445906, 4641983, 345880140, 87337428 #### [facility] [address] [place] [address] Hematocrit (Bld) [Volume fraction] 26.8 % Low 34.0-46.0 [facility] Comment on above: Performed By: #### 2 886731, 2844870, 6839654, 466484542, 96257420 #### [facility] [address] [place] [address] Hemoglobin (Bld) [Mass/Vol] 9.3 g/dL Low 12.0-16.0 [facility] Comment on above: Performed By: #### 2 983562, 0917494, 0545736, 909187962, 19996630 #### [facility] [address] [place] [address] MCH (RBC) [Entitic mass] 34.3 pg High 27.0-34.0 [facility] Comment on above: Performed By: #### 2 100520, 1736570, 6039668, 623958542, 72699977 #### [facility] [address] [place] [address] MCHC (RBC) [Mass/Vol] 34.8 g/dL Normal 31.4-36.0 [facility] Comment on above: Performed By: #### 2 679311, 0958221, 0061569, 830143563, 33240303 #### [facility] [address] [place] [address] MCV (RBC) [Entitic vol] 98.6 fL Normal 80.0-100.0 [facility] Comment on above: Performed By: #### 2 128598, 0919831, 1310504, 499919164, 70613217 #### [facility] [address] [place] [address] Platelet mean volume (Bld) [Entitic vol] 6.8 fL Normal 6.4-10.8 [facility] Comment on above: Performed By: #### 2 104428, 1843214, 4074715, 140789339, 47963936 #### [facility] [address] [place] [address] Platelets (Bld) [#/Vol] 201.0 E9/L Normal 150. 0-500. 0 [facility] Comment on above: Performed By: #### 2 633435, 3791939, 5249788, 590561021, 55898734 #### [facility] [address] [place] [address] RBC (Bld) [#/Vol] 2.7 E12/L Low 4.3-5.9 [facility] Comment on above: Performed By: #### 2 323446, 4400171, 2024131, 966729867, 32239800 #### [facility] [address] [place] [address] WBC corrected for nucl RBC Auto (Bld) [#/Vol] 3.3 E9/L Low 4.0-11.0 [facility] Comment on above: Performed By: #### 2 459056, 9781471, 5554709, 048158317, 33074575 #### [facility] [address] [place] [address] CHEMISTRYOrdered By: [employer] SYSTEM on 12-21-2022 Anion gap [Moles/Vol] 11 mmol/L Normal 6 - 16 mEq/L [facility]isol Calcium [Mass/Vol] 8.9 mg/dL Normal 8.9 - 11. 1 mg/dL [facility] Chloride [Moles/Vol] 112 mmol/L High 101 - 1 11 mmol/L [facility] Rem[facility] CO2 [Moles/Vol] 22 mmol/L Normal 21 - 31 mmol/L [facility]isol Creatinine [Mass/Vol] 1.4 mg/dL High 0.5 - 1.3 mg/dL [facility] Remisol GFR/1.73 sq M.predicted among non-blacks MDRD (S/P/Bld) [Vol rate/Area] 40 mL/min/1.73 m2 Low >=59mL/min /1.73 m2 [facility] Chem S Glucose [Mass/Vol] 102 mg/dL Normal 55 - 199 mg/dL [facility] Remisol Potassium [Moles/Vol] 4.0 mmol/L Normal 3.5 - 5.3 mmol/L [facility]isol Sodium [Moles/Vol] 141 mmol/L Normal 135 - 145 mmol/L [facility] Remisol Urea nitrogen [Mass/Vol] 36 mg/dL High 5 - 21 mg/dL [facility] Remisol Urea nitrogen/Creatinine [Mass ratio] 26 mg/mg High 10 - 20 [facility] Remisol CHEMISTRYOrdered By: Gavino Lyle on 12-21-2022 HbA1c (Bld) [Mass fraction] 7.1 % High <=5.9% [facility] ChemAutoSS Capillary Glucose POCon Glucose [Mass/Vol] 127 mg/dL High 55-99 [facility] Comment on above: Result Comment: Navin BOSE Performed By: #### 2 [id number] #### [facility] [address] [place] [address] Glucose [Mass/Vol] 160 mg/dL High 55-99 [facility] Comment on above: Result Comment: Navin uriostegui RN/ Performed By: #### 2 [id number] ####[facility] [address] [place] [address] Glucose [Mass/Vol] 132 mg/dL High 55-99 [facility] Comment on above: Result Comment: Navin uriostegui RN/ Performed By: #### 2 620725, 3238246, 7412344, 606974293, 06392865 #### [facility] [address] [place] [address] Glucose [Mass/Vol] 115 mg/dL High [address] [place] [address] Comment on above: Result Comment: Navin OBSE Performed By: #### 2 [id number] #### [facility] [address] [place] [address] HEMATOLOGYOrdered By: SYSTEM SYSTEM on 12-21-2022 Basophils/100 [...] Low 4.0 - 11.0 E9/L [facility] HemeAutoSS [id number] 12-21-2022 HbA1c (Bld) [Mass fraction] 7.1 % High <=5.9 [facility] Comment on above: Performed By: #### 2 207597, 0169307, 6496144, 932981366, 20693055 #### [facility] [address] [place] [address] Insurance Correspondence Off iceon 12-21-2022 Insurance Correspondence Office [id number]#1.00CD:12 7 [facility] 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 Note - Rafat n 12-21-2022 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 Note - OT OT AM-PAC 6 Clicks Score: 16/24= SNF. Pt completed sit to stand transfers [...] safety with self care tasks and transfers. [facility] 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 Note - Soc ial Workeron 12-21-2022 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 Note - Glacing Machine Tender This SW responded to a consult on [...] time. SW will remain available as needed. [facility] Message from Medicareon Message from Medicare [id number]#1.00CD:12 7 [facility] Progress Note-Physicianon Progress Note-Physician Assessment/Plan 1. UTI (urinary tract infection) (N39.0: Urinary tract infection, site not specified) ? Urine culture positive for E. coli, pansensitive ? We will continue Keflex as patient tolerated in the past ? We will continue to monitor for signs of improvement Ordered: Initial Hospital Care/Day Moderate 55 Minutes 46812 Sbsq Hospital Care/Day Straight Fwd 25 Minutes 65937 2. Age-related cognitive decline (R41.81: Age-related cognitive [...] 06:07:00) Lymph Auto: 42.1 % (12/21/22 06:07:00) Tillman Auto: 13.6 % (12/21/22 06:07:00) Eos Auto: 2.5 % (12/21/22 06:07:00) Basophil Auto: 2.6 % High (12/21/22 06:07:00) Neutro Absolute: 1.3 E9/L Low (12/21/22 06:07:00) Lymph Absolute: 1.4 E9/L (12/21/22 06:07:00) Tillman Absolute: 0.4 E9/L (12/21/22 06:07:00) Eos Absolute: [...] gm/dL (12/20 (more content not included)... Normal [facility] Comment on above: Result Comment: Elec tronically Signed By: Zaheer Sloan DO\.br\Date and Time Signed: 12/21/22 14:15 EDT eGFRon 09-01-2023 GFR/1.73 sq M.predicted among non-blacks MDRD (S/P/Bld) [Vol rate/Area] 40 mL/min/1.73 m2 Low >=59 [facility] Comment on above: Order Comment: Order added by Discern Expert. Result Comment: Coal Shooter aubrey kidney disease could be indicated at eGFR's of less than 60 mL/min/1.73m2. Kidney failure is indicated at less than 15 mL/min/1.73m2. Performed By: #### 2 282464, 4096161, 6664872, 592447708, 55190396 #### [facility] [address] [place] [address] Auto Diffon 12-20-2022 Basophils/100 WBC (Bld) 3.5 % High 0.0-2.0 [facility] Comment on above: Order Comment: Order Added by Faviola Expert. Performed By: #### 2 223756, 3301082, 8195329, 017036513, 29484466 #### [facility] [address] [place] [address] Basophils/Leukocytes Auto (Bld) [Pure # fraction] 0.1 E9/L Normal 0.0-0.2 [facility] Comment on above: Order Comment: Order Added by Faviola Expert. Performed By: #### 2 088496, 6083500, 3455732, 126146927, 88508678 #### [facility] [address] [place] [address] Eosinophils/100 WBC (Bld) 1.3 % Normal 0.0-8.0 [facility] Comment on above: Order Comment: Order Added by Faviola Expert. Performed By: #### 2 061992, 8275590, 8918484, 750306383, 72449541 #### [facility] [address] [place] [address] Eosinophils/Leukocytes Auto (Bld) [Pure # fraction] 0.0 E9/L Normal 0.0-0.5 [facility] Comment on above: Order Comment: Order Added by Faviola Expert. Performed By: #### 2 049942, 3522838, 1185660, 985536904, 83586744 #### [facility] [address] [place] [address] Lymphocytes/100 WBC (Bld) 28.4 % Normal 14.0-50.0 [facility] Comment on above: Order Comment: Order Added by Discern Expert. Performed By: #### 2 671223, 1719983, 2407243, 714923635, 87066883 #### [facility] [address] [place] [address] Lymphocytes/Leukocytes Auto (Bld) [Pure # fraction] 1.1 E9/L Normal 1.0-4.0 [facility] Comment on above: Order Comment: Order Added by Discern Expert. Performed By: #### 2 518710, 1866419, 2128568, 723839473, 76951415 #### [facility] [address] [place] [address] Monocytes/100 WBC (Bld) 12.5 % Normal 4.0-14.0 [facility] Comment on above: Order Comment: Order Added by Discern Expert. Performed By: #### 2 517536, 8603238, 5025346, 423297841, 04142118 #### [facility] [address] [place] [address] Monocytes/Leukocytes Auto (Bld) [Pure # fraction] 0.5 E9/L Normal 0.2-1.0 [facility] Comment on above: Order Comment: Order Added by Discern Expert. Performed By: #### 2 788159, 2304503, 3624868, 992971025, 68288027 #### [facility] [address] [place] [address] Neutrophils/100 WBC (Bld) 54.3 % Normal 36.0-75.0 [facility] Comment on above: Order Comment: Order Added by Discern Expert. Performed By: #### 2 198345, 6353903, 9144086, 869296530, 23256016 #### [facility] [address] [place] [address] Neutrophils/Leukocytes Auto (Bld) [Pure # fraction] 2.1 E9/L Normal 2.0-7.5 [facility] Comment on above: Order Comment: Order Added by Discern Expert. Performed By: #### 2 188147, 3194196, 1915604, 973436419, 66222371 #### [facility] [address] [place] [address] BMPon 12-20-2022 Creatinine [Mass/Vol] 1.3 mg/dL Normal 0.5-1.3 [facility] Comment on above: Performed By: #### 2 786088, 1229113, 9679868, 573601540, 76611274 #### [facility] [address] [place] [address] Urea nitrogen [Mass/Vol] 36 mg/dL High 5-21 [facility] Comment on above: Performed By: #### 2 390845, 7792271, 9516043, 387446544, 82477177 #### [facility] [address] [place] [address] Urea nitrogen/Creatinine [Mass ratio] 28 No Units High 10-20 [facility] Comment on above: Performed By: #### 2 556232, 7105894, 2813867, 980668931, 93605144 #### [facility] [address] [place] [address] Anion gap [Moles/Vol] 13 mmol/L Normal 6-16 [facility] Comment on above: Performed By: #### 2 495531, 2157638, 8263804, 389112306, 14258287 #### [facility] [address] [place] [address] Calcium [Mass/Vol] 9.6 mg/dL Normal 8.9-11.1 [facility] Comment on above: Performed By: #### 2 218802, 0829601, 2649840, 360613454, 51972119 #### [facility] [address] [place] [address] Chloride [Moles/Vol] 108 mmol/L Normal 101-111 [facility] Comment on above: Performed By: #### 2 467555, 6459207, 1580750, 642531482, 28622307 #### [facility] [address] [place] [address] CO2 [Moles/Vol] 21 mmol/L Normal 21-31 [facility] Comment on above: Performed By: #### 2 960857, 7163812, 8797978, 403201807, 91487478 #### [facility] [address] [place] [address] Glucose [Mass/Vol] 136 mg/dL Normal 55-199 [facility] Comment on above: Result Comment: If t his glucose result represents a fasting glucose, interpretation should refer to the following reference range: 55-99 mg/dL Performed By: #### 2 339778, 6093979, 2409235, 687572150, 83893056 #### [facility] [address] [place] [address] Potassium [Moles/Vol] 4.2 mmol/L Normal 3.5-5.3 [facility] Comment on above: Performed By: #### 2 877855, 5931532, 5062922, 018366641, 10680578 #### [facility] [address] [place] [address] Sodium [Moles/Vol] 138 mmol/L Normal 135-145 [facility] Comment on above: Performed By: #### 2 771507, 7023284, 7840985, 364154630, 10329190 #### [facility] [address] [place] [address] CBC w/ Auto Diffon 3 Erythrocyte distribution width (RBC) [Ratio] 19.0 % High 10.9-14.2 [facility] Comment on above: Performed By: #### 2 160760, 9099584, 5242341, 392416825, 56465837 #### [facility] [address] [place] [address] Hematocrit (Bld) [Volume fraction] 31.3 % Low 34.0-46.0 [facility] Comment on above: Performed By: #### 2 129785, 0603644, 5385344, 949658732, 91965388 #### [facility] [address] [place] [address] Hemoglobin (Bld) [Mass/Vol] 10.4 g/dL Low 12.0-16.0 [facility] Comment on above: Performed By: #### 2 926900, 5164175, 0901521, 818662079, 40119026 #### [facility] [address] [place] [address] MCH (RBC) [Entitic mass] 33.3 pg Normal 27.0-34.0 [facility] Comment on above: Performed By: #### 2 323541, 8136004, 6585928, 615059952, 89888204 #### [facility] [address] [place] [address] MCHC (RBC) [Mass/Vol] 33.3 g/dL Normal 31.4-36.0 [facility] Comment on above: Performed By: #### 2 587621, 5589168, 3910152, 230193698, 10859698 #### [facility] [address] [place] [address] MCV (RBC) [Entitic vol] 99.8 fL Normal 80.0-100.0 [facility] Comment on above: Performed By: #### 2 638217, 7553599, 7114115, 216406682, 34731500 #### [facility] [address] [place] [address] Platelet mean volume (Bld) [Entitic vol] 6.8 fL Normal 6.4-10.8 [facility] Comment on above: Performed By: #### 2 108140, 9745551, 9504688, 606674769, 54960317 #### [facility] [address] [place] [address] Platelets (Bld) [#/Vol] 212.0 E9/L Normal 150. 0-500. 0 [facility] Comment on above: Performed By: #### 2 980328, 1127121, 5059825, 964021446, 36541743 #### [facility] [address] [place] [address] RBC (Bld) [#/Vol] 3.1 E12/L Low 4.3-5.9 [facility] Comment on above: Performed By: #### 2 332813, 7511308, 0927592, 129687118, 65964228 #### [facility] [address] [place] [address] WBC corrected for nucl RBC Auto (Bld) [#/Vol] 3.9 E9/L Low 4.0-11.0 [facility] Comment on above: Performed By: #### 2 939739, 9930867, 9388752, 551911064, 31274462 #### [facility] [address] [place] [address] CHEMISTRYOrdered By: SYSTEM SYSTEM on 12-20-2022 Troponin [...] 43 mL/min/1.73 m2 Low >=59mL/min /1.73 m2 [facility] Chem S Globulin (S) [Mass/Vol] 3.8 g/dL [...] for Treatmenton 11-22 Consent for Treatment [id number]#1.00CD:12 7 Normal [facility] Discharge Instructionson Discharge Instructions [id number]#1.00CD:1 27 Normal [facility] ED Clinical Summaryon 2022 ED Clinical Summary (Inserted Image. Belle ble to display) [address] [address] ED Clinical Summary Person Information [facility] Age[facility] 72 Years : 1950 Sex: Female Language: Italian PCP: Rickey Askew MD Marital Status: Phone: [phone] MRN: Visit Id: Visit Reason: Dysuria; Weakness or fatigue; UTI Speciality: Acuity: 3 Enc Type: Inpatient Med Service: Medical Arrival: 12/20/2022 15:04:00 Discharge: LOS: 000 03:52 Checkin: 12/20/2022 15:04:00 Checkout: 12/20/2022 18:56:43 Dispo Type: Admitted as IP to this [facility] EVENTS: Event Name Event Status Request Date/Time [...] 18:40:53 Patient Care Request 12/20/2022 18:52:04 ADDRESS: [address] [place] [address] [address] EL[place] [id number] PHYS DOC NOTES: MEDICAL INFORMATION: Prescriptions Given: [...] of breast cancer; 4:HTN (hypertension); 5:Hypercholesteremia Normal [facility] ED Clinical Summary (Inserted Image. Belle ble to display) [address] [address] ED Clinical Summary Person Information Name: MARLEN STALEY/Savita Age: 72 Years : 1950 Sex: Female Language: Italian PCP: Rickey Askew MD Marital Status: Phone: [phone] MRN: Visit Id: Visit Reason: Medical problem [...] 12/20/2022 00:50:56 12/20/2022 00:50:56 12/20/2022 00:50:56 ADDRESS: [address] [place] [address] DR ELIZ[place]DO [place] [id number] PHYS DOC NOTES: MEDICAL INFORMATION: Prescriptions Given: New Medications [facility], [address] [place], [place] [id number], [phone] cephalexin (Keflex 500 mg Cap) 1 Capsules [...] EDUCATION INFORMATION: Instructions: Urinary Tract Infection, Adult, Cyxm-jc-Ozur; Anemia; Dehydration, Adult, Cxjw-jj-Bqsh Follow up: With: Address: When: Rickey Askew [address] [place] [address] Business (1) In 2 days 12/21/2022 DIAGNOSIS: 1:Generalized weakness; 2:Frequent falls; 3:Anemia; 4:Dehydration; 5:Urinary tract infection Normal [facility] ED Note-Physicianon 12-21-19 ED Note-Physician Basic Information Time Seen: Pedro Nava DO 12/20/2022 15:31 Chief Complaint Pt came in via [facility] for dysuria and weakness. Pt states [...] daughter wants her to go into a custodial as they can no longer be cared [...] D3 20 (more content not included)... Normal [facility] Comment on above: Result Comment: Elec tronically Signed By: Pedro Nava DO\.br\Date and Time Signed: 12/20/22 19:22 EDT ED Note-Physician Basic Information Time Seen: David Tong MD 12/19/2022 20:40 Chief Complaint says she has been getting increasingly weaker. on wait list for [facility] History of Present Illness 72-year-old female presents [...] to be in assisted living at the [facility]. She does have a history of diabetes. [...] day(s), # 28 cap(s), Refills(s) 0, Pharmacy: [facility], 167.6, cm, 12/19/22 20:43:00 EDT, Height/Length [...] Askew In 2 days 12/21/2022 EDT [address] [place] [id number] Business (1) Additional Instructions: Patient Education Urinary Tract Infection, Adult, Emre-lx-Etfl Anemia Dehydration, Adult, Wxzi-sj-Odxd Problem List/Past Medical History Ongoing Age-related cognitive decline Axillary adenopathy Chronic edema Diabetes History of breast cancer History of healed fragility fracture HTN (hypertension) Hypercholesteremia Invasive ductal carcinoma of right breast Multiple closed fractures of pelvis with stable disruption of pelvic ring with routine healing, subsequent encounter Vitamin D deficiency Historical No qualifying data Procedure/Surgical (more content not included)... Normal [facility] Comment on above: Result Comment: Elec tronically Signed By: Ran HANKS, David\.br\Date and Time Signed: 12/20/22 00:40 EDT ED Patient Education Noteon 12-20-2022 ED Patient Education Note Normal [facility] ED Patient Education Note Hematology [...] Follow these instructions at home: ? Take cwzq-oru-vzsqmdy and prescription medicines only as told by [...] provider. Document Revised: 02/20/2022 Document Reviewed: 03/15/2020 [employer] Patient Education ? 2022 [employer] Nutrition Dehydration, Adult Dehydration is condition [...] a lot. (more content not included)... Normal [facility] ED Patient Summaryon 023 ED Patient Summary (Inserted Image. Belle ble to display) [address] [address] Patient Discharge Instructions Person Information Name: MARLEN STALEY Age: 72 Years Arrival Date: 12/20/2022 15:04:00 Discharge Diagnosis: 1:UTI (urinary tract infection); 2:Age-related cognitive decline; 3:History of breast cancer; 4:HTN (hypertension); 5:Hypercholesteremia Primary Care Physician: Rickey Askew MD Provider Information Primary Provider: Pedro Nava DO Advanced Seat Nailer:None The exam and treatment you received in the Emergency Department were for an urgent problem and are not intended as complete care. It is important that you follow up with a doctor, nurse practitioner, or physician?s economist research assistant for ongoing care. If your symptoms [...] opioids can be used to help relieve leqqvxls-bu-gfqcos pain and are often prescribed following a [...] be struggling with addiction, tell your health residential care officer and ask for guidance or call SAMHSA?S National Helpline at 3-044-735-HELP. v Source: [place] Department of Health and Human Services/Center for Diseas (more content not included)... Normal [facility] ED Patient Summary (Inserted Image. Belle ble to display) [place] [phone] Patient Discharge Instructions Person Information Name: MARLEN STALEY Age: 72 Years Arrival Date: 12/19/2022 20:39:01 Discharge Diagnosis: 1:Generalized weakness; 2:Frequent falls; 3:Anemia; 4:Dehydration; 5:Urinary tract infection Primary Care Physician: Rickey Askew MD Provider Information Primary Provider: David Tong MD Advanced Seat Nailer:None The exam and treatment you received in the Emergency Department were for an urgent problem and are not intended as complete care. It is important that you follow up with a doctor, nurse practitioner, or physician?s economist research assistant for ongoing care. If your symptoms [...] With: Address: When: Rickey [place] [place] [address] Business (1) In 2 days 12/21/2022 In the event that this physician does not participate in your insurance network, please consult with your insurance company to find a nearby participating provider. Patient Education Materials: Urinary Tract Infection, Adult, Xiyy-sc-Wzvw; Anemia; Dehydration, Adult, Spxp-bh-Ohsi A MESSAGE TO ALL PATIENTS REGARDING OPIOIDS PRESCRIPTION OPIOIDS: WHAT YOU NEED TO KNOW Prescription opioids can be used to help relieve xbfvtmsm-wa-gdyssu pain and are often prescribed following a [...] health care (more content not included)... Normal [facility] HEMATOLOGYOrdered By: SYSTEM SYSTEM on [...] E9/L Normal 150. 0 - 500.0 E9/L [facility] HemeAutoSS RBC (Bld) [#/Vol] 3.1 E12/L Low 4.3 - 5.9 E12/L [facility] HemeAutoSS WBC corrected for nucl RBC Auto (Bld) [#/Vol] 3.9 E9/L Low 4.0 - 11.0 E9/L [facility] HemeAutoSS Hep Func Panelon 12-20-2022 Bilirubin.direct [Mass/Vol] 0.1 mg/dL Normal 0.1-0.4 [facility] Comment on above: Performed By: #### 2 647091, 4790329, 5989103, 867279946, 71820616 #### [facility] Laboratory [address] [place] [address] Bilirubin.indirect [Mass or moles/Vol] 0.8 mg/dL Normal 0.1-0.9 [facility] Comment on above: Performed By: #### 2 856720, 7660714, 1566811, 606516981, 68579321 #### [facility] Laboratory [address] [place] [address] Albumin [Mass/Vol] 3.5 g/dL Normal 3.3-5.0 [facility] Comment on above: Performed By: #### 2 064674, 8438366, 6274113, 045100408, 71740789 #### [facility] Laboratory [address] [place] [address] Albumin/Globulin (S) [Mass conc ratio] 0.9 Low 1.1-2.2 [facility] Comment on above: Performed By: #### 2 801886, 8152034, 8476836, 784263037, 53134416 #### [facility] Laboratory [address] [place] [address] ALP [Catalytic activity/Vol] 101 Int._Unit/L High 21-98 [facility] Comment on above: Performed By: #### 2 568847, 2206172, 5199409, 152237178, 71659083 #### [facility] Laboratory [address] [place] [address] ALT No additional P-5'-P [Catalytic activity/Vol] 20 Int._Unit/L Normal 6-46 [facility] Comment on above: Performed By: #### 2 725763, 1941213, 2966170, 803733162, 55296670 #### [facility] Laboratory [address] [place] [address] AST [Catalytic activity/Vol] 18 Int._Unit/L Normal 5-43 [facility] Comment on above: Performed By: #### 2 324555, 4112114, 8990342, 698597911, 81090663 #### [facility] Laboratory [address] [place] [address] Bilirubin [Mass/Vol] 0.9 mg/dL Normal 0.0-1.1 [facility] Comment on above: Performed By: #### 2 894999, 3191408, 1471205, 294360612, 28412825 #### [facility] Laboratory [address] [place] [address] Globulin (S) [Mass/Vol] 3.8 g/dL Normal 1.4-4.0 [facility] Comment on above: Performed By: #### 2 515722, 1703919, 1965140, 065664585, 86824342 #### [facility] [address] [place] [address] Protein [Mass/Vol] 7.3 g/dL Normal 6.0-7.8 [facility] Comment on above: Performed By: #### 2 834984, 4618652, 7885760, 236286193, 13694398 #### [facility] Laboratory [address] [place] [address] Laboratory - Microbiology an d Antimicrobial susceptibilityOrdered By: Ninfa Sawyer on 12-20-2022 Bacteria identified Cx Nom (U) 1,000 cfu/ml Mixed skin contaminants [facility] Monitor Recordon 12-20-2022 Monitor Record [id number]#1.00CD:1 27 Normal [facility] Pre-Arrival Noteon 3 Pre-Arrival Note Pre-Arrival Summary Name: UTI ncems Current Date: 12/20/2022 15:06:09 EDT Gender: Date of : Age: Pre-Arrival Type: EMS ETA: 12/20/2022 15:31:00 EDT Primary Care Physician: Presenting Problem: Pre-Arrival User: Delia Tsai RN Referring Source: Location: ID Completion Date/Time: 12/20/2022 15:01:00 [facility] Emergency Department Pre-Hospital Report Form ____ Vital Signs: Pre-Hospital Report: Treatment in Route: Response to Treatment: Misc. Issues: Normal [facility] Troponin 0 Hr.on 12-20-2022 Troponin I.cardiac [Mass/Vol] 9.80 pg/mL Low 10.10-27.1 0 [facility] Comment on above: Result Comment: The 95% CI (Confidence Interval) PPV (Positive Predictive Value) for myocardial infarction in females is 38 pg/mL, in males 51 pg/mL. The results should be used in conjunction with clinical conditions of myocardial infarction. (Access High Sensitivity Troponin I Instructions For Use, Gaby Freeborn, November 2017) Performed By: #### 2 902964, 5496953, 5821062, 738358759, 77789886 #### [facility] Laboratory [address] [place] [address] Troponin 3 Hr.on 12-20-2022 Troponin I.cardiac [Mass/Vol] 10.20 pg/mL Normal 10.10-27.1 0 [facility] Comment on above: Result Comment: The 95% CI (Confidence Interval) PPV (Positive Predictive Value) for myocardial infarction in females is 38 pg/mL, in males 51 pg/mL. The results should be used in conjunction with clinical conditions of myocardial infarction. (Access High Sensitivity Troponin I Instructions For Use, Gaby Marisol, November 2017) Performed By: #### 2 682755, 7808735, 1290623, 310839663, 10155644 #### [facility] Laboratory [address] [place] [address] UA With Cult Reflexon 2022 Bilirubin Ql (U) Negative Normal Negative [facility] Comment on above: Performed By: #### 1 2620540, 9047011 ####[place] [address] [place] [address] Clarity (U) CLEAR Normal Clear [facility] Comment on above: Performed By: #### 1 0071987, 1525227 ####[address] [address] Color (U) STRAW Abnormal Yellow [facility] Comment on above: Performed By: #### 1 2703723, 4880731 ####[address] [address] Epithelial cells.squamous LM.HPF (Urine sed) [#/Area] 0-2 Normal 0-2 [facility] Comment on above: Performed By: #### 1 3556118, 0117621 ####[facility] [address] [place] [address] Glucose Test strip (U) [Mass/Vol] Negative Normal Negative [facility] Comment on above: Performed By: #### 1 6610066, 1429474 ####[facility] [address] [place] [address] Hemoglobin Ql (U) TRACE Abnormal Negative [facility] Comment on above: Performed By: #### 1 4315295, 7319364 ####[facility] [address] [place] [address] Ketones (U) [Mass/Vol] Negative Normal Negative [facility] Comment on above: Performed By: #### 1 5323917, 5828341 ####[facility] [address] [place] [address] Stuart.plasma/Stuart. RBC (Bld) [Mass ratio] 0-3 Normal 0-3 [facility] Comment on above: Performed By: #### 1 0267971, 5758357 ####[address] [address] Nitrite Ql (U) Negative Normal Negative [facility] Comment on above: Performed By: #### 1 6544884, 5939207 ####[address] [address] pH (U) 5.5 [pH] Invalid Interpretation Code 5.0-9.0 [facility] Comment on above: Performed By: #### 1 3273205, 1718830 ####[address] [address] Protein (U) [Mass/Vol] Negative Normal Negative [facility] Comment on above: Performed By: #### 1 7635715, 0300511 ####[address] [address] Specific gravity (U) [Rel density] <=1.005 Invalid Interpretation Code 1.005-1.03 0 [facility] Comment on above: Performed By: #### 1 9987792, 7111860 ####[place] [address] Type of Urine collection method Clean Catch Normal [facility] Comment on above: Performed By: #### 1 1755523, 5953368 ####[address] [address] Urobilinogen Qn (U) 0.2 {Tj'U}/dL Normal 0.0-1.0 [facility] Comment on above: Performed By: #### 1 6304395, 2957617 ####[address] [address] WBC Auto Ql (U) 1+ Abnormal Negative [facility] Comment on above: Performed By: #### 1 0863882, 8957618 ####[facility] [address] [place] [address] WBC LM.HPF (Urine sed) [#/Area] 6-15 Abnormal 0-5 [facility] Comment on above: Performed By: #### 1 4317295, 6997727 ####[facility] [address] [place] [address] UA Spec Desc Catheter Normal [facility] Comment on above: Result Comment: Mini cath specimen Performed By: #### 2 991424, 6205594, 8338143, 404621996, 05336059 #### [facility] Laboratory [address] [place] [address] URINALYSISOrdered By: Lisette Medina on 12-20-2022 Bilirubin [...] PM) Normal Negative [facility] UA Auto SS Stuart.plasma/Stuart. RBC (Bld) [Mass ratio] 0-3 /HPF Normal [...] [facility] UA Auto SS Urobilinogen Qn (U) 0.9632107 {Tj'U}/dL Normal 0.0 - 1.0 EU/dL [facility] [...] mGy = na DAP = na Normal [facility] XR Chest Single View Exam [...] mGy = na DAP = na Normal [facility] eGFRon 12-20-2022 GFR/1.73 sq M.predicted among non-blacks MDRD (S/P/Bld) [Vol rate/Area] 43 mL/min/1.73 m2 Low >=59 [facility] Comment on above: Order Comment: Order added by Discern Expert. Result Comment: Coal Shooter aubrey kidney disease could be indicated at eGFR's of less than 60 mL/min/1.73m2. Kidney failure is indicated at less than 15 mL/min/1.73m2. Performed By: #### 2 564440, 5099878, 8626413, 972667946, 98658861 #### [facility] [address] [place] [address] Auto Diffon 12-19-2022 Basophils/100 WBC (Bld) 0.4 % Normal 0.0-2.0 [facility] Comment on above: Order Comment: Order Added by Discern Expert. Performed By: #### 2 358916, 2149187, 8975846, 768958947, 05893340 #### [facility] Laboratory [address] [place] [address] Basophils/Leukocytes Auto (Bld) [Pure # fraction] 0.0 E9/L Normal 0.0-0.2 [facility] Comment on above: Order Comment: Order Added by Discern Expert. Performed By: #### 2 948632, 1566836, 5283911, 287109350, 75912633 #### [facility] [address] [place] [address] Eosinophils/100 WBC (Bld) 1.6 % Normal 0.0-8.0 [facility] Comment on above: Order Comment: Order Added by Discern Expert. Performed By: #### 2 311269, 9585760, 4239035, 695368655, 09517548 #### [facility] Laboratory [address] [place] [address] Eosinophils/Leukocytes Auto (Bld) [Pure # fraction] 0.1 E9/L Normal 0.0-0.5 [facility] Comment on above: Order Comment: Order Added by Discern Expert. Performed By: #### 2 296693, 1772621, 0237322, 660926677, 03212745 #### [facility] [address] [place] [address] Lymphocytes/100 WBC (Bld) 34.4 % Normal 14.0-50.0 [facility] Comment on above: Order Comment: Order Added by Discern Expert. Performed By: #### 2 829397, 2811910, 9522096, 395061168, 67832540 #### [facility] Laboratory [address] [place] [address] Lymphocytes/Leukocytes Auto (Bld) [Pure # fraction] 1.2 E9/L Normal 1.0-4.0 [facility] Comment on above: Order Comment: Order Added by Discern Expert. Performed By: #### 2 691687, 6639686, 8487787, 146125486, 89123375 #### [facility] [address] [place] [address] Monocytes/100 WBC (Bld) 12.8 % Normal 4.0-14.0 [facility] Comment on above: Order Comment: Order Added by Discern Expert. Performed By: #### 2 739521, 5642168, 6380179, 930280995, 71345232 #### [facility] Laboratory [address] [place] [address] Monocytes/Leukocytes Auto (Bld) [Pure # fraction] 0.4 E9/L Normal 0.2-1.0 [facility] Comment on above: Order Comment: Order Added by Discern Expert. Performed By: #### 2 366940, 9495857, 7050334, 929418327, 79124164 #### [facility] [address] [place] [address] Neutrophils/100 WBC (Bld) 50.8 % Normal 36.0-75.0 [facility] Comment on above: Order Comment: Order Added by Discern Expert. Performed By: #### 2 526235, 7626459, 0793079, 610666202, 44826385 #### [facility] [address] [place] [address] Neutrophils/Leukocytes Auto (Bld) [Pure # fraction] 1.7 E9/L Low 2.0-7.5 [facility] Comment on above: Order Comment: Order Added by Discern Expert. Performed By: #### 2 380327, 4236904, 3234073, 048867386, 19203873 #### [facility] [address] [place] [address] BMPon 12-19-2022 Anion gap [Moles/Vol] 10 mmol/L Normal 6-16 [facility] Comment on above: Performed By: #### 2 289169, 3489341, 0936917, 412896588, 70300652 #### [facility] [address] [place] [address] Calcium [Mass/Vol] 9.4 mg/dL Normal 8.9-11.1 [facility] Comment on above: Performed By: #### 2 339642, 4099045, 7846965, 817880823, 85399032 #### [facility] [address] [place] [address] Chloride [Moles/Vol] 111 mmol/L Normal 101-111 [facility] Comment on above: Performed By: #### 2 327661, 4886329, 3830133, 884354312, 18826944 #### [facility] [address] [place] [address] CO2 [Moles/Vol] 25 mmol/L Normal 21-31 [facility] Comment on above: Performed By: #### 2 623418, 0793063, 9193276, 079527198, 69819977 #### [facility] [address] [place] [address] Creatinine [Mass/Vol] 1.4 mg/dL High 0.5-1.3 [facility] Comment on above: Performed By: #### 2 362852, 7327545, 5044234, 435551754, 88832988 #### [facility] [address] [place] [address] Glucose [Mass/Vol] 165 mg/dL Normal 55-199 [facility] Comment on above: Result Comment: If t his glucose result represents a fasting glucose, interpretation should refer to the following reference range: 55-99 mg/dL Performed By: #### 2 027385, 7079971, 1866589, 081312979, 61081378 #### [facility] [address] [place] [address] Potassium [Moles/Vol] 4.6 mmol/L Normal 3.5-5.3 [facility] Comment on above: Performed By: #### 2 984082, 4474950, 8262385, 335119213, 38349668 #### [facility] [address] [place] [address] Sodium [Moles/Vol] 141 mmol/L Normal 135-145 [facility] Comment on above: Performed By: #### 2 695003, 9078035, 1703814, 316049971, 53082208 #### [facility] [address] [place] [address] Urea nitrogen [Mass/Vol] 36 mg/dL High 5-21 [facility] Comment on above: Performed By: #### 2 253758, 2812422, 5667740, 910911389, 92362147 #### [facility] [address] [place] [address] Urea nitrogen/Creatinine [Mass ratio] 26 No Units High 10-20 [facility] Comment on above: Performed By: #### 2 673473, 5013158, 5951041, 529826531, 81596936 #### [facility] [address] [place] [address] CBC w/ Auto Diffon 3 Erythrocyte distribution width (RBC) [Ratio] 18.9 % High 10.9-14.2 [facility] Comment on above: Performed By: #### 2 477037, 0473748, 4338727, 896104319, 06517167 #### [facility] [address] [place] [address] Hematocrit (Bld) [Volume fraction] 32.2 % Low 34.0-46.0 [facility] Comment on above: Performed By: #### 2 407154, 8468433, 7630846, 005311415, 02824431 #### [facility] [address] [place] [address] Hemoglobin (Bld) [Mass/Vol] 10.8 g/dL Low 12.0-16.0 [facility] Comment on above: Performed By: #### 2 551363, 4703683, 5622018, 610956845, 45957835 #### [facility] [address] [place] [address] MCH (RBC) [Entitic mass] 33.5 pg Normal 27.0-34.0 [facility] Comment on above: Performed By: #### 2 606315, 9562862, 4453164, 091404466, 27530438 #### [facility] [address] [place] [address] MCHC (RBC) [Mass/Vol] 33.4 g/dL Normal 31.4-36.0 [facility] Comment on above: Performed By: #### 2 187138, 5820651, 5003246, 288922956, 05772433 #### [facility] [address] [place] [address] MCV (RBC) [Entitic vol] 100.5 fL High 80.0-100.0 [facility] Comment on above: Performed By: #### 2 325571, 7379891, 0199449, 189192882, 99449731 #### [facility] [address] [place] [address] Platelet mean volume (Bld) [Entitic vol] 7.0 fL Normal 6.4-10.8 [facility] Comment on above: Performed By: #### 2 172041, 5159505, 9582569, 213860160, 46223001 #### [facility] [address] [place] [address] Platelets (Bld) [#/Vol] 204.0 E9/L Normal 150. 0-500. 0 [facility] Comment on above: Performed By: #### 2 798324, 2688450, 0762417, 717510017, 03559687 #### [facility] [address] [place] [address] RBC (Bld) [#/Vol] 3.2 E12/L Low 4.3-5.9 [facility] Comment on above: Performed By: #### 2 517119, 8339444, 9766319, 965529550, 65653321 #### [facility] Laboratory [address] [place] [address] WBC corrected for nucl RBC Auto (Bld) [#/Vol] 3.4 E9/L Low 4.0-11.0 [facility] Comment on above: Performed By: #### 2 316194, 1365728, 7950470, 237946015, 87459736 #### [facility] [address] [place] [address] CHEMISTRYOrdered By: SYSTEM SYSTEM on 12-19-2022 Albumin [...] for Treatmenton 11-22 Consent for Treatment [id number]:1 27 Normal [facility] HEMATOLOGYOrdered By: SYSTEM SYSTEM on [...] 1.7 E9/L Low 2.0 - 7.5 E9/L FT HemeAutoSS HEMATOLOGYOrdered By: Evert Cordoba on 12-19-2022 [...] [Mass/Vol] 3.5 g/dL Normal 3.3-5.0 [facility] Comment on above: Performed By: #### 2 131265, 0955303, 0172494, 504874865, 58243775 #### [facility] [address] [place] [address] Albumin/Globulin (S) [Mass conc ratio] 1.0 Low 1.1-2.2 [facility] Comment on above: Performed By: #### 2 983214, 8652353, 6437299, 596259913, 32595392 #### [facility] [address] [place] [address] ALP [Catalytic activity/Vol] 110 Int._Unit/L High 21-98 [facility] Comment on above: Performed By: #### 2 359043, 6091669, 4999085, 015834855, 08616682 #### [facility] [address] [place] [address] ALT No additional P-5'-P [Catalytic activity/Vol] 20 Int._Unit/L Normal 6-46 [facility] Comment on above: Performed By: #### 2 100419, 3311594, 1712355, 548467133, 80645677 #### [facility] [address] [place] [address] AST [Catalytic activity/Vol] 19 Int._Unit/L Normal 5-43 [facility] Comment on above: Performed By: #### 2 077283, 0333781, 9329620, 238578621, 95361507 #### [facility] [address] [place] [address] Bilirubin [Mass/Vol] 0.4 mg/dL Normal 0.0-1.1 [facility] Comment on above: Performed By: #### 2 870990, 3676558, 3253504, 568258546, 93923031 #### [facility] [address] [place] [address] Bilirubin.direct [Mass/Vol] 0.1 mg/dL Normal 0.1-0.4 [facility] Comment on above: Performed By: #### 2 303973, 5615985, 1119367, 281333162, 73754763 #### [facility] [address] [place] [address] Bilirubin.indirect [Mass or moles/Vol] 0.3 mg/dL Normal 0.1-0.9 [facility] Comment on above: Performed By: #### 2 302798, 0049035, 1268530, 919413377, 06531125 #### [facility] [address] [place] [address] Globulin (S) [Mass/Vol] 3.5 g/dL Normal 1.4-4.0 [facility] Comment on above: Performed By: #### 2 206170, 1723591, 7121112, 443400943, 93859127 #### [facility] [facility] [address] [place] [address] Protein [Mass/Vol] 7.0 g/dL Normal 6.0-7.8 [facility] Comment on above: Performed By: #### 2 098049, 0814100, 0099598, [id number], [id number] #### [facility] [address] [place] [address] Laboratory - Microbiology an d Antimicrobial susceptibilityOrdered By: Jeaneth Morfin on 12-19-2022 Bacteria identified Cx Nom (U) >100,000 cfu/ml Gram Negative [facility] Recruiter species [facility] Magnesiumon 12-19-2022 Magnesium [Mass/Vol] 2.0 mg/dL Normal 1.3-2.4 Fish [facility] Comment on above: Performed By: #### 2 838715, 5636630, 6142293, [id number], [id number] #### [facility] [address] [place] [address] Monitor Recordon 12-19-2022 Monitor Record [id number]#1.00CD:1 27 Normal [facility] PT & PTTon 12-19-2022 aPTT Coag (PPP) [Time] 26.7 second(s) Normal 25.1-36.5 [facility] Comment on above: Result Comment: [...] - 109.0 sec. Performed By: #### 2 212887, 6294791, 1036825, [id number], [id number] #### [facility] [address] [place] [address] INR Coag (PPP) [Relative time] 1.0 {INR} Invalid Interpretation Code [facility] Comment on above: Result Comment: INR results are specifically intended to assess patients stabilized on long-term Anticoagulation therapy suggested INR?s ?Less Intensive Anticoagulation? 2.0 ? 3.0 Conventional Range 3.0 ? 4.5 Performed By: #### 2 623127, 2212526, 3638074, [id number], 71560470 #### [facility] [address] [place] [address] PT Coag (PPP) [Time] 11.5 second(s) Normal 9.4-12.5 [facility] Comment on above: Result Comment: [...] no normal ranges. Performed By: #### 2 647659, 2945004, 3139002, [id number], 55085323 #### [facility] [address] [place] [address] Pre-Arrival Noteon 3 Pre-Arrival Note Pre-Arrival Summary Name: abdiaziz ncems Current Date: 12/19/2022 20:42:25 EDT Gender: Female Date of : Age: 72 Pre-Arrival Type: EMS ETA: 12/19/2022 20:55:00 EDT Primary Care Physician: Presenting Problem: gen. weakness Pre-Arrival User: Javier Flood RN Referring Source: Location: ID Completion Date/Time: 12/19/2022 20:25:00 [facility] Emergency Department Pre-Hospital Report Form ____ Vital Signs: 140/83, 89pulse, 96% Pre-Hospital Report: generalized weakness. awaiting bed at [facility]. pt wanted seen . Treatment in Route: Response to Treatment: Misc. Issues: Normal [facility] Troponin 0 Hr.on 12-19-2022 Troponin I.cardiac [Mass/Vol] 9.40 pg/mL Low 10.10-27.1 0 [facility] Comment on above: Result Comment: The 95% CI (Confidence Interval) PPV (Positive Predictive Value) for myocardial infarction in females is 38 pg/mL, in males 51 pg/mL. The results should be used in conjunction with clinical conditions of myocardial infarction. (Access High Sensitivity Troponin I Instructions For Use, Gaby Freeborn, November 2017) Performed By: #### 2 650775, 8317699, 5279137, [id number], [id number] #### [facility] [address] [place] [address] UA With Cult Reflexon 2022 Bacteria LM Ql (Urine sed) 2+ /HPF Abnormal Trace [facility] Comment on above: Performed By: #### 2 139047, 1470190, 9652811, 114920804, 33134683 #### [facility] [address] [place] [address] Bilirubin Ql (U) Negative Normal Negative [facility] Comment on above: Performed By: #### 2 540886, 2104400, 6521433, 729717413, 51772175 #### [facility] [address] [place] [address] Clarity (U) CLEAR Normal Clear [facility] Comment on above: Performed By: #### 2 432998, 0420925, 3033020, 772802519, 53488543 #### [facility] [address] [place] [address] Color (U) YELLOW Normal Yellow [facility] Comment on above: Performed By: #### 2 963424, 5964426, 6291335, 786854842, 46131063 #### [facility] [address] [place] [address] Epithelial cells.squamous LM.HPF (Urine sed) [#/Area] 0-2 Normal 0-2 [facility] Comment on above: Performed By: #### 2 010249, 7178705, 7357115, 703412383, 36753092 #### [facility] [address] [place] [address] Glucose Test strip (U) [Mass/Vol] Negative Normal Negative [facility] Comment on above: Performed By: #### 2 831878, 2951132, 1119874, 023021302, 36740348 #### [facility] [address] [place] [address] Hemoglobin Ql (U) Negative Normal Negative [facility] Comment on above: Performed By: #### 2 831275, 1707677, 8871026, 681701075, 86120246 #### [facility] [address] [place] [address] Ketones (U) [Mass/Vol] Negative Normal Negative [facility] Comment on above: Performed By: #### 2 097185, 7469982, 0179076, 612233855, 13617964 #### [facility] [address] [place] [address] Stuart.plasma/Stuart. RBC (Bld) [Mass ratio] 0-3 Normal 0-3 [facility] Comment on above: Performed By: #### 2 441105, 5285625, 6972643, 289129699, 16942964 #### [facility] [address] [place] [address] Nitrite Ql (U) Positive Abnormal Negative [facility] Comment on above: Performed By: #### 2 965143, 7905348, 5415639, 019454609, 21512544 #### [facility] [address] [place] [address] pH (U) 6.0 [pH] Invalid Interpretation Code 5.0-9.0 [facility] Comment on above: Performed By: #### 2 069142, 4127569, 0087196, 310779742, 98960850 #### [facility] [address] [place] [address] Protein (U) [Mass/Vol] Negative Normal Negative [facility] Comment on above: Performed By: #### 2 359223, 2633358, 9529853, 013017890, 09422187 #### [facility] [address] [place] [address] Specific gravity (U) [Rel density] 1.025 Invalid Interpretation Code 1.005-1.03 0 [facility] Comment on above: Performed By: #### 2 280162, 9909960, 3879063, 179582522, 60700902 #### [facility] [address] [place] [address] Urobilinogen Qn (U) 0.2 {Tj'U}/dL Normal 0.0-1.0 [facility] Comment on above: Performed By: #### 2 954684, 9850162, 9626682, 558926255, 35711007 #### [facility] [address] [place] [address] WBC Auto Ql (U) TRACE Abnormal Negative [facility] Comment on above: Performed By: #### 2 892028, 3034755, 7865222, 880013625, 98391486 #### [facility] [address] [place] [address] WBC LM.HPF (Urine sed) [#/Area] 0-5 Normal 0-5 [facility] Comment on above: Performed By: #### 2 705183, 7978539, 5829631, 682267322, 11300972 #### [facility] [address] [place] [address] URINALYSISOrdered By: Evert Cordoba on 12-19-2022 Bacteria [...] PM) Normal Negative [facility] UA Auto SS Stuart.plasma/Stuart. RBC (Bld) [Mass ratio] 0-3 /HPF Normal [...] Comment: Mini cath specimen Urobilinogen Qn (U) 0.7870214 {Tj'U}/dL Normal 0.0 - 1.0 EU/dL FT UA Auto SS WBC Auto Ql (U) Trace *ABN* (12/19/22 10:25 PM) Invalid Interpretation Code Negative [facility] UA Auto SS WBC LM.HPF (Urine sed) [#/Area] 0-5 /HPF Normal 0-5/HPF [facility] UA Auto SS eGFRon 12-19-2022 GFR/1.73 sq M.predicted among non-blacks MDRD (S/P/Bld) [Vol rate/Area] 40 mL/min/1.73 m2 Low >=59 [facility] Comment on above: Order Comment: Order added by Discern Expert. Result Comment: Coal Shooter aubrey kidney disease could be indicated at eGFR's of less than 60 mL/min/1.73m2. Kidney failure is indicated at less than 15 mL/min/1.73m2. Performed By: #### 2 589819, 0692244, 1626941, 779885977, 79282583 #### [facility] [address] [place] [address] CT Spine Lumbar w/o Contrast on 12-17-2022 [...] Arriaga M.D. Transcribed by: TOLU Technologist: TIEN [facility] Consent for Treatmenton 11-21 Consent for Treatment .[id number]#1.00CD:1 27 [facility] Discharge Instructionson Discharge Instructions [id number]#1.00CD:1 27 [facility] ED Clinical Summaryon 2022 ED Clinical Summary (Inserted Image. Belle ble to display) [address] [address] ED Clinical Summary Person Information Name: MARLEN STALEY/Savita Age: 72 Years : 1950 Sex: Female Language: Italian PCP: Rickey Askew MD Marital Status: Phone: [phone] MRN: Visit Id: Visit Reason: Weakness or [...] 12/17/2022 14:42:45 12/17/2022 14:42:45 12/17/2022 14:42:45 ADDRESS: [address] [place] [address] [facility] [place] [id number] PHYS DOC NOTES: MEDICAL INFORMATION: Prescriptions Given: New Medications [facility], [address] [place], [place] [id number], [phone] oxycodone (oxyCODONE 5 mg Tab) 1 Tablets [...] Follow up: With: Address: When: JOSÉ ANTONIO VARGAS [address] [place] [address] Business (1) In 3 days 12/20/2022 With: Address: When: Gavino Lugo [address] [place] [address] Business (1) In 3 days 12/20/2022 With: Address: When: Rickey [address]w [address] [place] [address] Business (1) In 3 days 12/20/2022 DIAGNOSIS: Fall; Lumbar compression fracture Normal [facility] ED Note-Physicianon 12-18-19 23 ED Note-Physician Basic Information Time Seen: Gui [...] day(s), # 15 tab(s), Refills(s) 0, Pharmacy: [facility], 168, cm, 12/17/22 10:29:00 EDT, Height/Length [...] Follow-up With When Contact Information JOSÉ ANTONIO SAM In 3 days 12/20/[address]T [address] [address]- Business (1) Additional Instructions: Gavino Lugo In 3 days 12/20/2022 EDT [address] [place] [address]- Business (1) Additional Instructions: Rickey Askew In 3 days 12/20/2022 EDT [address] [place] [address]- Business (1) Additional Instructions: Patient Education Lumbar Spine Fracture Attestation Patient seen and evaluated by the physician economist research assistant. Attending physician was present in the emergency department and supervised care. This visit was performed by both the physician and an APC. I performed all aspects of the MDM as documented. This report was transcribed using voice recognition software. Every effort was made to ensure accuracy, however, inadvertently computerized forest logistics manager mistakes may be present. Appropriate healthcare PPE [...] closed fra (more content not included)... Normal [facility] Comment on above: Result Comment: Elec tronically Signed By: Gui Scruggs PA-C\.br\Date and Time Signed: 12/17/22 13:40 EDT\.br\Electronically Co-Signed By: Jeffery Murphy DO\.johnnie\Date and Time Co-Signed: 12/17/22 18:34 EDT ED [...] these instructions at home: Medicines ? Take ozns-ger-yrexrin and prescription medicines only as told by [...] fried or sweet foods. ? Take an qvpf-lbb-uiwudoo or prescription medicine for constipation. If you [...] is renae (more content not included)... Normal [facility] ED Patient Summaryon 023 ED Patient Summary (Inserted Image. Belle ble to display) [address] [address] Patient Discharge Instructions Person Information Name: MARLEN STALEY Age: 72 Years Arrival Date: 12/17/2022 10:19:35 Discharge Diagnosis: Fall; Lumbar compression fracture Primary Care Physician: Rickey Askew MD Provider Information Primary Provider: Jeffery Murphy DO Advanced Seat Nailer:Gui Scruggs PA-C The exam and treatment you received in the Emergency Department were for an urgent problem and are not intended as complete care. It is important that you follow up with a doctor, nurse practitioner, or physician?s economist research assistant for ongoing care. If your symptoms [...] Instructions: With: Address: When: JOSÉ ANTONIO VARGAS [address] [place] [address] Business (1) In 3 days 12/20/2022 With: Address: When: Gavino Lugo [address] [place] [address] Business (1) In 3 days 12/20/2022 With: Address: When: Rickey Askew [address] [place] [address] Business (1) In 3 days 12/20/2022 In the event that this physician does not participate in your insurance network, please consult with your insurance company to find a nearby participating provider. Patient Education Materials: Lumbar Spine Fracture A MESSAGE TO ALL PATIENTS REGARDING OPIOIDS PRESCRIPTION OPIOIDS: WHAT YOU NEED TO KNOW Prescription opioids can be used to help relieve ivjrmahr-qv-ggslev pain and are often prescribed following a [...] ? Visit (more content not included)... Normal [facility] Retirement Recordson 12-17 Retirement Records [id number]#1.00CD:1 27 Normal [facility] XR Hip 2-3 Views Right [...] 12:37 EDT by Pipo Mayfield DO Normal [facility] XR Spine Lumbosacral 2 or [...] FINDINGS: Mild compression fracture of L1 and allo-wk-qfhzpwfh compression fracture of L2. No significant interval [...] FINAL REPORT Dictated: 12/17/2022 1:38 pm Pipo Mafyield DO Signed (Electronic Signature): 12/17/2022 1:38 pm Signed by: Pipo Mayfield DO Transcribed by: TOLU Technologist: SAV Technical Comments Radiation Dose: Ka,r in mGy = na DAP = na Normal [facility] Family Medicine Office/Clini c Noteon 12-14-2022 Family Medicine Office/Clinic Note History of Present Illness Discharge from [facility] 12/15 ADMIT from [facility] 11/02?16 multiple falls and increasing weakness, neighbor did not feel she was safe at home. currently admitted to [facility] with weakness, dementia. Was unable to [...] Daily, # 90 tab(s), Refills(s) 4, Pharmacy: [facility], 167, cm, 11/01/22 20:02:00 EDT, Height/Length Dosing, 90.3, kg, 11/01/22 20:02:00 EDT, Weight Dosing Home Health Oidn-yg-Uyql Encounter Type: Medicare Reason for Gkou-yq-Wexk (Diagnosis): DISCHARGE DIAGNOSIS Skilled Encounter Detail I certify that I conducted and documented that a mfsn-lv-lkpq (F2F) encounter with the consumer occurred within the 90 days prior to the home health services start of care date, or within 30 days following the start of care date (inclusive of the start of care date), preceding the certification of medical necessity. Fci: Yes Physical Therapy: Yes Occupational Therapy: Yes Speech Therapy: _ Film Rental Clerk: _ Geological Manager: _ Need for Home Health Services I [...] D deficiency H (more content not included)... Normal [facility] Comment on above: Result Comment: Elec tronically Signed By: PILAR HANKS, Sammy\.br\Date and Time Signed: 12/14/22 16:36 EDT ONC - Otheron 12-12-2022 ONC - Other [id number]#1.00CD:1 27 Normal [facility] ONC - Otheron 12-04-2022 ONC - Other [id number]#1.00CD:1 27 Normal [facility] ONC - Otheron 11-21-2022 ONC - Other [id number]#1.00CD:1 27 [facility] XR Pelvis 1 or 2 [...] Kinney MD, V. Transcribed by: TOLU Technologist: SRF Technical Comments Radiation Dose: Ka,r in mGy = na DAP = na [facility] RAD - MISCon 11-20-2022 RAD - MISC [id number]#1.00CD:1 27 [facility] Discharge Documentationon Discharge Documentation [id number]#1.00CD:1 27 [facility] Family Medicine Office/Clini c Noteon 11-06-2022 Family Medicine Office/Clinic Note History of Present Illness [facility] ADMIT from [facility] 11/02?16 multiple falls and increasing weakness, neighbor did not feel she was safe at home. currently admitted to [facility] with weakness, dementia. Was unable to [...] anastrozole, Vit B12 Pt brought in her [employer] 3. HTN (hypertension) (I10: Essential (primary) [...] 11 refills ergocalciferol 50,000 intl units Cap, 717[address] International_Unit= 1 cap(s), Oral, q7day Kisqali (200 [...] Linda HANKS, Christian Hernandes 11/02/2022 13:54 EDT Normal [facility] Comment on above: Result Comment: Elec tronically Signed By: PILAR HANKS, Sammy\.br\Date and Time Signed: 11/06/22 22:21 EDT Message from Medicareon 10-20 Message from Medicare [id number]#1.00CD:1 27 Normal [facility] Transfer Documentson 023 Transfer Documents [id number]#1.00CD:1 27 [facility] Insurance Correspondence Off iceon 11-05-2022 Insurance Correspondence Office [id number]#1.00CD:12 7 Normal [facility] Inpatient Clinical Summaryon 11-04-2022 Inpatient Clinical Summary [address] [address] Clinical Summary Person Information: Name: MARLEN STALEY Age: 72 Years : 1950 Sex: Female PCP: Azar HANKS, Rickey Lynn Marital Status: Phone: [phone] Race: White Ethnicity: Non- or Language: Italian Visit Id: Visit Reason: Weakness or fatigue; Trauma - minor; Multiple falls; WEAKNESS, CHEST PAIN Speciality: Acuity: Enc Type: Observation Med Service: Medical Arrival: 11/01/2022 19:53:41 Discharge: Dispo Type: Admitted as IP to this Hosp Address: [address] [place] [address] [address] [place] [id number] Provider Notes: Addendum by Trevor HANKS, Wyatt on November 04, 2022 12:36:52 EDT Diagnosis: [...] Physician: Follow up: With: Address: When: Hollis DESIRAE [address], [employer] [place] [address] [place] [address] Business (1) Comments: Urinary retnetion w/dooley With: Address: When: Gavino Lugo [address] [place] [address] Business (1) Comments: Call for followup appointment in 4 weeks for repeat pelvis xray With: Address: When: Rickey Askew [address] [place] [address] Business (1) Type Location Start Finish State Secured Appointment Type Secured Location 11/22/2022 2:15 PM 11/22/2022 2:30 PM Confirmed Patient Education Information: Weakness Normal [facility] Inpatient Patient Summaryon 11-04-2022 Inpatient Patient Summary [facility] [address] [place], [place] [address] Patient Discharge Instructions PERSON INFORMATION [...] up: With: Address: When: Hollis MERRILL [address] [facility], [address], [address] [address] Business (1) Comments: Urinary retnetion w/dooley With: Address: When: Gavino Lugo [address] [place] [address] Business (1) Comments: Call for followup appointment in 4 weeks for repeat pelvis xray With: Address: When: Rickey Askew [address] [place] [address] Business (1) In the event that this physician does not participate in your insurance network, please consult with your insurance company to find a nearby participating provider. Type Location Start Finish State Secured Appointment Type Secured Location 11/22/2022 2:15 PM 11/22/2022 2:30 PM Confirmed Comment: REBEKA Christianson BARBARA, have received the attached patient education materials/instructions and have verbalized understanding: Patient Signature ____ Date Clinican/Nurse Signature Date HERE ARE THE MEDICATION CHANGES THAT OCCURRED DURING YOUR HOSPITAL STAY New Medications [facility], [address] [id number], [phone] ergocalciferol (ergocalciferol 50,000 intl units Cap) 1 [...] Next Dose: ri (more content not included)... [facility] Inpatient Patient Summary MARLEN STALEY :1950 [...] the operative site, Persistent vomiting Pharmacy Information [facility] Previously Scheduled Follow-Up Appointments 2022 2:15 PM EDT With: Senthil Caldera DO Where: [facility] New Follow Up Appointments after Discharge Follow Up with Gavino Lugo When: Comments: Call for followup appointment in 4 weeks for repeat pelvis xray Where: [address] [place] [address]- Business (1) Follow Up with Rickey Askew When: In 0 days Where: [address] [place] [address]- Business (1) Medications What How Much When Why Instructions Next Dose New ergocalciferol (ergocalciferol 50,000 intl units Cap) 1 Capsules By Mouth Every 7 days Pickup at [facility] Unchanged anastrozole (anastrozole 1 mg Tab) [...] Once a day (at bedtime) Pharmacy Information [facility]: [address] [place], [place] [id number] [phone] Test Results CBC BMP WBC: 6.6 E9/L (11/01/22 22:01:00) Glucose Lvl: 130 mg/dL (11/01/22 22:01:00) RBC: 3.7 E12/L Low (11/01/22 22:01:00) BUN: 26 mg/dL High (11/01/22 22:01:00) HGB: 12.1 gm/dL (11/01/22 22:01:00) Creatinine: 1.3 mg/dL (11/01/22 22:01:00) Hct: 36.5 % (11/01/22 22:01:00) BUN (more content not included)... Normal [facility] 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 Note - Attila e Manageron 11-04-2022 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 Note - Computer Aided Design Technician CRM to room to discuss DC planning. [...] Precert is back and can go to [facility] BED 56 Normal [facility] Comment on above: Result Comment: Elec tronically Signed By: Florence Ortega\.br\Date and Time Signed: 11/04/22 13:07 EDT CHEMISTRYOrdered By: SYSTEM SYSTEM on 11-03-2022 25-hydroxyvitamin D3 [Mass/Vol] ng/mL Low 30.0 - 100.0 ng/mL [facility] Remisol 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 Note - Attila e Manageron 11-03-2022 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 Note - Computer Aided Design Technician CRM to room to discuss DC planning. [...] updated. Anticipated DC once SNF arranged Normal [facility] Comment on above: Result Comment: Elec tronically Signed By: Florence Ortega\.br\Date and Time Signed: 11/03/22 10:38 EDT Progress Note-Physicianlili Progress Note-Physician Basic Informatio n This is a 72-year-old female with a medical history significant for metastatic breast cancer who comes in with pubic rami fracture and physical deconditioning. Assessment/Plan Physical deconditioning Pubic rami fracture Vitamin D deficiency -Spoke with orthopedic surgeon appreciate assistance likely nonoperative weightbearing as tolerated we will wait for orthopedic surgeon to examine patient. -AP pelvis was ordered -[place] -PT recommended SNF will send her to [...] 6.0 (11/02/22 17:30:00) UA Protein: Trace2 Abnormal (11/02/22:30:00) UA Glucose: NEGATIVE1 (11/02/22 17:30:00) UA Ketones: [...] q6hr, PRN ergocalciferol 50,000 intl units Cap, 43812 unit(s)= 1 cap(s), Oral, q7day hydrALAZINE 20 mg/mL Inj, 10 mg= 0.5 mL, IV Push, q6hr, PRN kisqali 200mg, Normal Patient Dose, Oral, q24hr lisinopril 10 mg Tab, 10 mg= 1 tab(s), Oral, Daily Lovenox 40 mg/0.4 mL SC Billie, 40 mg= 0.4 mL, SubCutaneous, Daily [place] 5/325 Tab, 1 tab(s), Oral, q6hr, PRN [...] can follow up out pt w/urology Normal [facility] Comment on above: Result Comment: Elec tronically Signed By: Trevor HANKS, Wyatt\.br\Date and Time Signed: 11/03/22 08:08 EDT RPR with Conf Rfxon 11-04-19 Reagin Ab RPR Ql (S) Non-Reactive Invalid Interpretation Code Non Reactive [facility] Comment on above: Result Comment: Perf ormed at: [facility] [address] [id number] PhD [place] Avelar Performed By: #### 2 694357, 4757145, 3193118, [id number], [id number] #### [facility] Laboratory [address] [place] [address] Vitamin D 25 Hydroxyon 11-03 25-hydroxyvitamin D3 [Mass/Vol] ng/mL Low 30.0-100.0 [facility] Comment on above: Result Comment: Vit beltran D deficiency has been defined as a level of serum 25-OH vitamin D less than 20 ng/mL (1,2) by the [place] [employer] and an Endocrine Society practice guideline. The Endocrine Society further defined vitamin D insufficiency as a level between 21 and 29 ng/mL (2). 1. IOM ([place] [employer]). 2010. Dietary reference intakes for calcium and D. [place]: The National Academies Press. 2. Katlin MF, Taylor [place], Jarad DUKE, et al. Evaluation, treatment, and prevention of vitamin D deficiency: an Endocrine Society clinical practice guideline. JCEM. 2010; 96 (7):1911-30. Performed By: #### 5 [id number] ####[facility] [id number] [place] [address] CT Pelvis w/o Contraston CT Pelvis w/o [...] Oral contrast amount in ml's: 0 Normal [facility] ED Clinical Summaryon 2022 ED Clinical Summary (Inserted Image. Belle ble to display) [address] [address] ED Clinical Summary Person Information Name: MARLEN STALEY/[facility] Age: 72 Years : 1950 Sex: Female Language: Italian PCP: Rickey Askew MD Marital Status: Phone: [phone] Visit Id: Visit Reason: Weakness or fatigue; Trauma - minor; Multiple falls; WEAKNESS, CHEST PAIN Speciality: Acuity: 2 Enc Type: Observation Med Service: Emergency Arrival: 11/01/2022 19:53:41 Discharge: LOS: 000 07:19 Checkin: 11/01/2022 19:53:41 Checkout: 11/02/2022 03:12:35 Dispo Type: Admitted as IP to this [facility] EVENTS: Event Name Event Status Request Date/Time [...] 11/02/2022 03:12:35 11/02/2022 03:12:35 11/02/2022 03:12:35 ADDRESS: [address] [place] [address] DR ELIZ[place] [phone] PHYS DOC NOTES: MEDICAL INFORMATION: Prescriptions Given: [...] vein thrombosis (DVT) prophylaxis; Multiple falls Normal [facility] ED Note-Physicianon 11-03-19 ED Note-Physician Radiologist has read the x-ray of the sacrum and there is discrepancy. He is reading he has a left pubic rami fracture. The patient has been admitted to the hospital.The hospitalist notified. Normal [facility] Comment on above: Result Comment: Elec tronically Signed By: Trell Avendano, Alok Dexter\.br\Date and Time Signed: 11/02/22 07:41 EDT ED Note-Physician Basic Information Time Seen: Kelly Meredith DO 11/01/2022 20:01 Chief Complaint pt to ED via [facility] with c/o chest bruise from fall earlier today. c/o increasing weakness. denies thinners or hitting head with earlier fall. denies PMH. hx of DM. pt A&Ox4 upon ED arrival, applied to desk monitor. History of Present Illness Patient is a [...] and Complexity of Problems Differential Diagnosis: [] [facility] Data External documents reviewed: [] My EKG [...] mg Ta (more content not included)... Normal [facility] Comment on above: Result Comment: Elec tronically Signed By: Kelly Meredith DO\.br\Date and Time Signed: 11/02/22 00:27 EDT ED Patient Education Noteon 11-02-2022 ED Patient Education Note Normal [facility] ED Patient Summaryon 023 ED Patient Summary (Inserted Image. Belle ble to display) [place] [id number] Patient Discharge Instructions Person Information Name: MARLEN STALEY Age: 72 Years Arrival Date: 11/01/2022 19:53:41 Discharge Diagnosis: 1:Generalized weakness; 2:HTN (hypertension); 3:Hypercholesteremia; 4:History of breast cancer; 5:On deep vein thrombosis (DVT) prophylaxis; Multiple falls Primary Care Physician: Azar HANKS, Rickey Lynn Provider Information Primary Provider: Kelly Meredith DO Advanced Seat Nailer:None The exam and treatment you received in the Emergency Department were for an urgent problem and are not intended as complete care. It is important that you follow up with a doctor, nurse practitioner, or physician?s economist research assistant for ongoing care. If your symptoms [...] opioids can be used to help relieve felpqusb-si-mnydii pain and are often prescribed following a [...] be struggling with addiction, tell your health residential care officer and ask for guidance or call [facility] National Helpline at 1-562-871-HTPI. v Source: US Department of Health and Human Servi (more content not included)... Normal [facility] ED Traumaon 11-02-2022 ED Trauma [id number]:1 27 Normal [facility] FolateOrdered By: SYSTEM SYS TEM on 11-02-2022 Folate [Mass/Vol] 11.4 ng/mL Normal >=6.7 [facility] Comment on above: Performed By: #### 2 211107, 6570182, 1635575, [id number], [id number] #### [facility] Laboratory [address] [place] [address] Insurance Correspondence Off ice11-02-2022 Insurance Correspondence Office [id number]:12 7 Normal [facility] 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 Note - Attila e Manageron 11-02-2022 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 Note - Computer Aided Design Technician CRM to room to discuss DC planning. [...] spouse she can have a bed on [facility] side. CRM will update patient and TCU Patient is okay with [facility] side, she knows that she can visit him and have meals Normal [facility] Comment on above: Result Comment: [...] under direct supervision from SIVAKUMAR Estrada, OTR/L. Normal [facility] Interdisciplinary Note - Soc ial Workeron 11-02-2022 Interdisciplinary Note - Glacing Machine Tender This SW responded to a consult on [...] has a phone call out to her lawyer criminal to obtain a copy of this documentation [...] SW will remain available as needed. Normal [facility] Monitor Recordon 11-02-2022 Monitor Record [id number]:1 27 Normal [facility] Progress Note-Physicianon Progress Note-Physician Patient: [...] drugs- Sob - shortness of breath. Normal [facility] Comment on above: Result Comment: [...] -AP pelvis was ordered -Checking vitamin D -[place] Metastatic breast cancer ? Continue with chemotherapeutics [...] % (11/01/22::00) Lymph Auto: 24.6 % (11/01/22::00) Tillman Auto: 5 % (11/01/22::00) Eos Auto: 3.3 % (11/01/22:) Basophil Auto: 1.2 % (11/01/22::) Neutro Absolute: 4.4 E9/L (11/01/22::00) Lymph Absolute: 1.6 E9/L (11/01/22::00) Tillman Absolute: 0.3 E9/L (11/01/22::00) Eos Absolute: 0.2 E9/L (11/01/22::00) Basophil Absolute: 0.1 E9/L (11/01/22::00) Glucose Lvl: 130 mg/dL (11/01/22::00) BUN: 26 mg/dL High (11/01/22::00) Creatinine: 1.3 mg/dL (11/01/22::00) eGFR: 43 mL/min/1.73 m2 Low (11/01/22::) BUN/Creat Ratio: 20 (11/01/22::00) Sodium Lvl: 138 mmol/L (11/01/22::00) Potassium Lvl: 4.2 mmol/L (11/01/22::00) Chloride: 105 mmol/L (11/01/22::00) CO2: 22 mmol/L (11/01/22::00) AGAP: 15 mEq/L (11/01/22:01:00) Calcium Lvl: 9.1 mg/dL (11/01/22 22:01:00) Alk Phos: 110 Int._Unit/L High (11/01/22 22:01:00) ALT: 13 Int._Unit/L (11/01/22 22:01:00) AST: 20 Int._Unit/L (11/01/22 22:01:00) Total Protein: 6.9 gm/dL (11/01/22 22:01:00) Albumin Lvl: 3.5 gm/dL (11/01/22 22:01:00) Globulin: 3.4 gm/dL (11/01/22 22:01:00) A/G Ratio: 1 Low (11/01/22::00) Bili Total: 0.9 mg/dL (11/01/22:01:00) Bili Direct: 0.2 mg/dL (11/01/22::00) Bili Indirect: 0.7 mg/dL (11/01/22::00) TSH: 0.93 mcIU/mL (11/02/22 06:00:00) Troponin: 7.5 [...] Invasive du (more content not included)... Normal [facility] Comment on above: Result Comment: Elec tronically Signed By: Trevor HANKS, Wyatt\.br\Date and Time Signed: 11/02/22 12:22 EDT Reference Laboratory Testing Ordered By: Generated DomainUser on 11-02-2022 Reagin Ab RPR Ql (S) Non-Reactive Invalid Interpretation Code Non Reactive [facility] SendOutsSS Comment on above: Result Comment: Perf ormed at: [facility] [address] [id number] PhD [place] Avelar TSH With T4fr ReflexOrdered By: SYSTEM SYSTEM on 11-02-2022 TSH Qn 0.93 m[IU]/L Normal 0.34-5.60 [facility] Comment on above: Performed By: #### 2 037795, 9103842, 0036375, [id number], [id number] #### [facility] [address] [place] [address] UA With Cult Reflexon 2022 Bacteria LM Ql (Urine sed) TRACE Normal Trace [facility] Comment on above: Order Comment: Urina ry Catheter Insertion triggered Urinalysis With Culture Reflex order by discern. Performed By: #### 2 027879, 0824928, 5853624, [id number], 44814771 #### [facility] [address] [place] [address] Bilirubin Ql (U) Negative Normal Negative [facility] Comment on above: Order Comment: Urina ry Catheter Insertion triggered Urinalysis With Culture Reflex order by discern. Performed By: #### 2 281446, 4084529, 0232158, 735477908, 14433603 #### [facility] [address] [place] [address] Clarity (U) CLEAR Normal Clear [facility] Comment on above: Order Comment: Urina ry Catheter Insertion triggered Urinalysis With Culture Reflex order by discern. Performed By: #### 2 589551, 3866896, 9404876, 082993182, 33902176 #### [facility] [address] [place] [address] Color (U) YELLOW Normal Yellow [facility] Comment on above: Order Comment: Urina ry Catheter Insertion triggered Urinalysis With Culture Reflex order by discern. Performed By: #### 2 875547, 2402915, 5758698, 751454495, 34499019 #### [facility] [address] [place] [address] Epithelial cells.squamous LM.HPF (Urine sed) [#/Area] 3-4 Normal 0-2 [facility] Comment on above: Order Comment: Urina ry Catheter Insertion triggered Urinalysis With Culture Reflex order by discern. Performed By: #### 2 484088, 0549275, 9615306, 517352493, 33527272 #### [facility] [address] [place] [address] Glucose Test strip (U) [Mass/Vol] Negative Normal Negative [facility] Comment on above: Order Comment: Urina ry Catheter Insertion triggered Urinalysis With Culture Reflex order by discern. Performed By: #### 2 881256, 5174968, 9448361, 452052714, 48678808 #### [facility] [address] [place] [address] Hemoglobin Ql (U) TRACE Abnormal Negative [facility] Comment on above: Order Comment: Urina ry Catheter Insertion triggered Urinalysis With Culture Reflex order by discern. Performed By: #### 2 796418, 8488499, 7698292, 697364817, 57835538 #### [facility] [address] [place] [address] Ketones (U) [Mass/Vol] TRACE Abnormal Negative [facility] Comment on above: Order Comment: Urina ry Catheter Insertion triggered Urinalysis With Culture Reflex order by discern. Performed By: #### 2 236895, 4420119, 3320611, 407458021, 06271677 #### [facility] [address] [place] [address] Stuart.plasma/Stuart. RBC (Bld) [Mass ratio] 4-20 Normal 0-3 [facility] Comment on above: Order Comment: Urina ry Catheter Insertion triggered Urinalysis With Culture Reflex order by discern. Performed By: #### 2 471263, 2298231, 7230730, 690504776, 84090354 #### [facility] [address] [place] [address] Nitrite Ql (U) Negative Normal Negative [facility] Comment on above: Order Comment: Urina ry Catheter Insertion triggered Urinalysis With Culture Reflex order by discern. Performed By: #### 2 924488, 4535394, 3999301, 330874419, 73292750 #### [facility] [address] [place] [address] pH (U) 6.0 [pH] Invalid Interpretation Code 5.0-9.0 [facility] Comment on above: Order Comment: Urina ry Catheter Insertion triggered Urinalysis With Culture Reflex order by discern. Performed By: #### 2 893319, 2194482, 9873947, 353567339, 04136856 #### [facility] [address] [place] [address] Protein (U) [Mass/Vol] TRACE Abnormal Negative [facility] Comment on above: Order Comment: Urina ry Catheter Insertion triggered Urinalysis With Culture Reflex order by discern. Performed By: #### 2 889371, 7911144, 2183826, 140681018, 24720643 #### [facility] [address] [place] [address] Specific gravity (U) [Rel density] 1.025 Invalid Interpretation Code 1.005-1.03 0 [facility] Comment on above: Order Comment: Urina ry Catheter Insertion triggered Urinalysis With Culture Reflex order by discern. Performed By: #### 2 624510, 0809473, 5747476, 965501042, 00468087 #### [facility] [address] [place] [address] Type of Urine collection method Catheter Normal [facility] Comment on above: Order Comment: Urina ry Catheter Insertion triggered Urinalysis With Culture Reflex order by discern. Performed By: #### 2 474659, 4535610, 0212254, 850622099, 02539250 #### [facility] [address] [place], [place] [address] Urobilinogen Qn (U) 1.0 {Tj'U}/dL Normal 0.0-1.0 [facility] Comment on above: Order Comment: Urina ry Catheter Insertion triggered Urinalysis With Culture Reflex order by discern. Performed By: #### 2 375425, 8122776, 9848034, 933529981, 61749024 #### [facility] [address] [place] [address] WBC Auto Ql (U) Negative Normal Negative [facility] Comment on above: Order Comment: Urina ry Catheter Insertion triggered Urinalysis With Culture Reflex order by discern. Performed By: #### 2 703216, 9590953, 8071207, 834393398, 81227897 #### [facility] [address] [place] [address] WBC LM.HPF (Urine sed) [#/Area] 0-5 Normal 0-5 [facility] Comment on above: Order Comment: Urina ry Catheter Insertion triggered Urinalysis With Culture Reflex order by discern. Performed By: #### 2 393663, 8258034, 1161463, 247925820, 85257635 #### [facility] [address] [place] [address] URINALYSISOrdered By: Dianne Villa on 11-02-2022 Bacteria [...] Interpretation Code Negative [facility] UA Auto SS Stuart.plasma/Stuart. RBC (Bld) [Mass ratio] 4-20 /HPF Normal [...] [facility] UA Auto SS Urobilinogen Qn (U) 1.4466385 {Tj'U}/dL Normal 0.0 - 1.0 EU/dL [facility] UA Auto SS WBC Auto Ql (U) Negative (11/02/22 5:30 PM) Normal Negative [facility] UA Auto SS WBC LM.HPF (Urine sed) [#/Area] 0-5 /HPF Normal 0-5/HPF [facility] UA Auto SS Vit [id number] By: ADELE SY YOU on 11-02-2022 Cobalamin (Vitamin B12) [Mass/Vol] 470 pg/mL Normal 50-1500 [facility] Comment on above: Performed By: #### 2 799031, 2720090, 7747968, 948949554, 40083935 #### [facility] [address] [place] [address] XR Chest Single Viewon 11-02 XR Chest [...] mGy = na DAP = na Normal [facility] XR Pelvis 1 or 2 [...] mGy = na DAP = na Normal [facility] XR Sacrum and Coccyx Min [...] M.D., DISAGREE Fx. lt. pubic rami Normal [facility] Auto Diffon 11-01-2022 Basophils/100 WBC (Bld) 1.2 % Normal 0.0-2.0 [facility] Comment on above: Order Comment: Order Added by Discern Expert. Performed By: #### 2 979707, 7722535, 8290529, 908560738, 01450445 #### [facility] [address] [place] [address] Basophils/Leukocytes Auto (Bld) [Pure # fraction] 0.1 E9/L Normal 0.0-0.2 [facility] Comment on above: Order Comment: Order Added by Discern Expert. Performed By: #### 2 461275, 7427458, 2692630, 667153650, 89444108 #### [facility] [address] [place] [address] Eosinophils/100 WBC (Bld) 3.3 % Normal 0.0-8.0 [facility] Comment on above: Order Comment: Order Added by Discern Expert. Performed By: #### 2 162277, 1451598, 2883682, 558848279, 77456427 #### [facility] [address] [place] [address] Eosinophils/Leukocytes Auto (Bld) [Pure # fraction] 0.2 E9/L Normal 0.0-0.5 [facility] Comment on above: Order Comment: Order Added by Discern Expert. Performed By: #### 2 112145, 8955104, 5625443, 088596628, 73388802 #### [facility] [address] [place] [address] Lymphocytes/100 WBC (Bld) 24.6 % Normal 14.0-50.0 [facility] Comment on above: Order Comment: Order Added by Discern Expert. Performed By: #### 2 697682, 5540086, 0745577, 407890671, 62862255 #### [facility] [address] [place] [address] Lymphocytes/Leukocytes Auto (Bld) [Pure # fraction] 1.6 E9/L Normal 1.0-4.0 [facility] Comment on above: Order Comment: Order Added by Discern Expert. Performed By: #### 2 191104, 6020879, 0547506, 298513833, 02358066 #### [facility] [address] [place] [address] Monocytes/100 WBC (Bld) 5.0 % Normal 4.0-14.0 [facility] Comment on above: Order Comment: Order Added by Discern Expert. Performed By: #### 2 611506, 4718155, 0436555, 788487074, 14248241 #### [facility] [address] [place] [address] Monocytes/Leukocytes Auto (Bld) [Pure # fraction] 0.3 E9/L Normal 0.2-1.0 [facility] Comment on above: Order Comment: Order Added by Discern Expert. Performed By: #### 2 571335, 7096880, 5873000, 283826385, 83546664 #### [facility] [address] [place] [address] Neutrophils/100 WBC (Bld) 65.9 % Normal 36.0-75.0 [facility] Comment on above: Order Comment: Order Added by Discern Expert. Performed By: #### 2 328379, 1360286, 3268877, 187613571, 80025298 #### [facility] [address] [place] [address] Neutrophils/Leukocytes Auto (Bld) [Pure # fraction] 4.4 E9/L Normal 2.0-7.5 [facility] Comment on above: Order Comment: Order Added by Discern Expert. Performed By: #### 2 510283, 0467921, 2659539, 698265507, 15212370 #### [facility] [address] [place] [address] BMPon 11-01-2022 Creatinine [Mass/Vol] 1.3 mg/dL Normal 0.5-1.3 [facility] Comment on above: Performed By: #### 2 616837, 7478822, 0803571, 937124246, 91955726 #### [facility] [address] [place] [address] Urea nitrogen [Mass/Vol] 26 mg/dL High 5-21 [facility] Comment on above: Performed By: #### 2 981470, 5827391, 6286780, 555261053, 92409030 #### [facility] [address] [place] [address] Urea nitrogen/Creatinine [Mass ratio] 20 No Units Normal 10-20 [facility] Comment on above: Performed By: #### 2 785405, 0539322, 6109930, 010985637, 20098047 #### [facility] [address] [place] [address] Anion gap [Moles/Vol] 15 mmol/L Normal 6-16 [facility] Comment on above: Performed By: #### 2 515525, 5310150, 8373177, 636938969, 84904952 #### [facility] [address] [place] [address] Calcium [Mass/Vol] 9.1 mg/dL Normal 8.9-11.1 [facility] Comment on above: Performed By: #### 2 952241, 0457389, 6289778, 048076908, 97969245 #### [facility] [address] [facility] [place] [address] Chloride [Moles/Vol] 105 mmol/L Normal 101-111 [facility] Comment on above: Performed By: #### 2 419509, 2011385, 3318870, 043849138, 45445464 #### [facility] [address] [place] [address] CO2 [Moles/Vol] 22 mmol/L Normal 21-31 [facility] Comment on above: Performed By: #### 2 312468, 6389592, 1302878, 685991474, 09243633 #### [facility] [address] [place] [address] Glucose [Mass/Vol] 130 mg/dL Normal 55-199 [facility] Comment on above: Result Comment: If t his glucose result represents a fasting glucose, interpretation should refer to the following reference range: 55-99 mg/dL Performed By: #### 2 915938, 4079956, 5395269, 018251232, 96476401 #### [facility] [address] [place] [address] Potassium [Moles/Vol] 4.2 mmol/L Normal 3.5-5.3 [facility] Comment on above: Performed By: #### 2 951964, 4682020, 0541999, 419981904, 89616920 #### [facility] [address] [place] [address] Sodium [Moles/Vol] 138 mmol/L Normal 135-145 [facility] Comment on above: Performed By: #### 2 126588, 3137770, 7114858, 611603543, 72119457 #### [facility] [address] [place] [address] CBC w/ Auto Diffon 3 Erythrocyte distribution width (RBC) [Ratio] 16.3 % High 10.9-14.2 [facility] Comment on above: Performed By: #### 2 608865, 3164225, 0859592, 398449454, 82155130 #### [facility] [address] [place] [address] Hematocrit (Bld) [Volume fraction] 36.5 % Normal 34.0-46.0 [facility] Comment on above: Performed By: #### 2 368144, 5010422, 6100027, 517886610, 97341790 #### [facility] [address] [place] [address] Hemoglobin (Bld) [Mass/Vol] 12.1 g/dL Normal 12.0-16.0 [facility] Comment on above: Performed By: #### 2 990362, 9813071, 7197540, 730123479, 56368094 #### [facility] [address] [place] [address] MCH (RBC) [Entitic mass] 32.9 pg Normal 27.0-34.0 [facility] Comment on above: Performed By: #### 2 607793, 9697447, 8916615, 323386729, 37656992 #### [facility] [address] [place] [address] MCHC (RBC) [Mass/Vol] 33.1 g/dL Normal 31.4-36.0 [facility] Comment on above: Performed By: #### 2 162605, 8898716, 3624799, 858898227, 75820065 #### [facility] [address] [place] [address] MCV (RBC) [Entitic vol] 99.3 fL Normal 80.0-100.0 [facility] Comment on above: Performed By: #### 2 091002, 0740714, 3579269, 746945783, 66204410 #### [facility] [address] [place] [address] Platelet mean volume (Bld) [Entitic vol] 7.3 fL Normal 6.4-10.8 [facility] Comment on above: Performed By: #### 2 044242, 9784607, 5978092, 702640852, 25725340 #### [facility] [address] [place], [place] [address] Platelets (Bld) [#/Vol] 229.0 E9/L Normal 150. 0-500. 0 [facility] Comment on above: Performed By: #### 2 201249, 7304639, 3214232, 912899232, 40741287 #### [facility] [facility] [address] [place], [place] [id number] RBC (Bld) [#/Vol] 3.7 E12/L Low 4.3-5.9 [facility] Comment on above: Performed By: #### 2 [id number], 5602127, 8576479, [id number], [id number] #### [facility] [address] [place] [address] WBC corrected for nucl RBC Auto (Bld) [#/Vol] 6.6 E9/L Normal 4.0-11.0 [facility] Comment on above: Performed By: #### 2 611164, 0907084, 2200704, [id number], [id number] #### [facility] [address] [place] [address] CHEMISTRYOrdered By: SYSTEM SYSTEM on 11-01-2022 Albumin [...] for Treatmenton 10-20 Consent for Treatment [id number]:12 7 Normal [facility] HEMATOLOGYOrdered By: SYSTEM SYSTEM on [...] 32.9 pg Normal 27.0 - 34.0 pg FT [...] Normal 4.0 - 11.0 E9/L FT HemeAutoSS Hep Func Panelon 11-01-2022 Albumin [Mass/Vol] 3.5 g/dL Normal 3.3-5.0 [facility] Comment on above: Performed By: #### 2 531569, 0428617, 8028566, [id number], [id number] #### [facility] [address] [place] [address] Albumin/Globulin (S) [Mass conc ratio] 1.0 Low 1.1-2.2 [facility] Comment on above: Performed By: #### 2 934122, 9340235, 5780140, [id number], 69420081 #### [facility] [address] [place] [address] ALP [Catalytic activity/Vol] 110 Int._Unit/L High 21-98 [facility] Comment on above: Performed By: #### 2 101305, 4267765, 2129089, [id number], 96987534 #### [facility] [address] [place] [address] ALT No additional P-5'-P [Catalytic activity/Vol] 13 Int._Unit/L Normal 6-46 [facility] Comment on above: Performed By: #### 2 566903, 0231362, 6020587, [id number], 77058165 #### [facility] [address] [place] [address] AST [Catalytic activity/Vol] 20 Int._Unit/L Normal 5-43 [facility] Comment on above: Performed By: #### 2 487026, 5884899, 2463368, 944248307, 61616784 #### [facility] [address] [place] [address] Bilirubin [Mass/Vol] 0.9 mg/dL Normal 0.0-1.1 [facility] Comment on above: Performed By: #### 2 466562, 7365030, 1107270, 889004721, 79760918 #### [facility] [address] [place] [address] Bilirubin.direct [Mass/Vol] 0.2 mg/dL Normal 0.1-0.4 [facility] Comment on above: Performed By: #### 2 857428, 9188500, 8703742, 858478062, 68021373 #### [facility] [address] [place] [address] Bilirubin.indirect [Mass or moles/Vol] 0.7 mg/dL Normal 0.1-0.9 [facility] Comment on above: Performed By: #### 2 422762, 5681302, 8026753, [id number], 69977372 #### [facility] [address] [place] [address] Globulin (S) [Mass/Vol] 3.4 g/dL Normal 1.4-4.0 [facility] Comment on above: Performed By: #### 2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 [Mass fraction] 97 % [facility] 08-01-2022 13:00-0400 Systolic blood pressure 136 mm[Hg] [facility] 06-06-2022 12:59-0500 Heart rate 61 /min [facility] 06-06-2022 12:59-0500 SaO2% (BldA) [Mass fraction] 98 % [facility] 12:59-0500 [facility]piratory rate 16 /[facility]-06[facility] 12:59-0500 Body temperature 97.7 [degF] [facility] 06-06-2022 12:58-0500 Diastolic blood pressure 106 mm[Hg] [facility] 06-06-2022 12:58-0500 Mean blood pressure 116 mm[Hg] [facility] 06-06-2022 12:58-0500 Systolic blood pressure 137 mm[Hg] [facility] 03-28-2022 14:10-0500 Heart rate 66 /min [facility] 03-28-2022 14:10-0500 SaO2% (BldA) [Mass fraction] 96 % [facility] 03-28-2022 14:09-0500 Body temperature 98.42 [degF] [facility] 03-28-2022 14:09-0500 Diastolic blood pressure 77 mm[Hg] [facility] 03-28-2022 14:09-0500 Mean blood pressure 93 mm[Hg] [facility] 03-28-2022 14:09-0500 Systolic blood pressure 127 mm[Hg] [facility] 03-28-2022 14:09-0500 Blood Pressure Location [facility] 03-28-2022 14:09-0500 Body temperature 98.42 [degF] [facility] 03-28-2022 14:09-0500 Mean blood pressure 94 mm[Hg] [facility] 03-28-2022 14:09-0500 Respiratory rate 18 /min [facility] 01-18-2022 14:13-0400 Blood Pressure [facility] 01-18-2022 14:13-0400 Body temperature 98.06 [degF] [facility] 01-18-2022 14:13-0400 BP/Pulse Patient Position [facility] 01-18-2022 14:13-0400 Diastolic blood pressure 82 mm[Hg] Senthilleopoldo Caldera [facility] 01-18-2022 14:13-0400 Heart rate 59 /min [facility] 01-18-2022 14:13-0400 Mean blood pressure 98 mm[Hg] Senthilleopoldo Caldera [facility] 01-18-2022 14:13-0400 Respiratory rate 16 /min [facility] 01-18-2022 14:13-0400 SaO2% (BldA) [Mass fraction] 98 % [facility] 01-18-2022 14:13-0400 Systolic blood pressure 131 mm[Hg] Senthilleopoldo Caldera [facility] 12-21-2021 13:34-0400 Blood Pressure Location Nohemi Garcia [facility] 12-21-2021 13:34-0400 Body temperature 98.6 [degF] Nohemi Garcia [facility] 12-21-2021 13:34-0400 BP/Pulse Patient Position Nohemi Garcia [facility] 12-21-2021 13:34-0400 Diastolic blood pressure 85 mm[Hg] Nohemi Garcia [facility] 12-21-2021 13:34-0400 Heart rate 67 /min Nohemi Garcia [facility] 12-21-2021 13:34-0400 Mean blood pressure 101 mm[Hg] Nohemi Garcia [facility] 12-21-2021 13:34-0400 Respiratory rate 18 /min Nohemi Garcia [facility] 12-21-2021 13:34-0400 SaO2% (BldA) [Mass fraction] 93 % Nohemi Garcia [facility] 12-21-2021 13:34-0400 Systolic blood pressure 132 mm[Hg] Nohemi Garcia [facility] 12-21-2021 13:34-0400 Mean blood pressure 101 mm[Hg] Nohemi Garcia [facility] 11-30-2021 13:16-0400 Body temperature 98.24 [degF] [facility] 11-30-2021 13:16-0400 Diastolic blood pressure 79 mm[Hg] [facility] 11-30-2021 13:16-0400 Heart rate 78 /min [facility] 11-30-2021 13:16-0400 Mean blood pressure 98 mm[Hg] [facility] 11-30-2021 13:16-0400 SaO2% (BldA) [Mass fraction] 96 % [facility] 11-30-2021 13:16-0400 Systolic blood pressure 136 mm[Hg] [facility] 11-30-2021 13:00-0400 Blood Pressure Location [facility] 11-30-2021 13:00-0400 Respiratory rate 16 /min [facility] 11-02-2021 11:53-0400 Blood Pressure Location Nohemi Garcia [facility] 11-02-2021 11:53-0400 Body temperature 98.06 [degF] Nohemi Garcia [facility] 11-02-2021 11:53-0400 BP/Pulse Patient Position Nohemi Garcia [facility] 11-02-2021 11:53-0400 Diastolic blood pressure 64 mm[Hg] Nohemi Garcia [facility] 11-02-2021 11:53-0400 Heart rate 64 /min Nohemi Garcia [facility] 11-02-2021 11:53-0400 Mean blood pressure 89 mm[Hg] Nohemi Garcia [facility] 11-02-2021 11:53-0400 Respiratory rate 17 /min Nohemi Garcia [facility] 11-02-2021 11:53-0400 SaO2% (BldA) [Mass fraction] 97 % Nohemi Garcia [facility] 11-02-2021 11:53-0400 Systolic blood pressure 140 mm[Hg] Nohemi Garcia [facility] 10-05-2021 13:46-0400 Body temperature 98.42 [degF] [facility] 10-05-2021 13:46-0400 Diastolic blood pressure 83 mm[Hg] [facility] 10-05-2021 13:46-0400 Heart rate 69 /min [facility] 10-05-2021 13:46-0400 Mean blood pressure 104 mm[Hg] [facility] 10-05-2021 13:46-0400 SaO2% (BldA) [Mass fraction] 96 % [facility] 10-05-2021 13:46-0400 Systolic blood pressure 146 mm[Hg] [facility]il [facility] 09-07-2021 12:48-0400 Body temperature 98.6 [degF] [facility] 09-07-2021 12:48-0400 Diastolic blood pressure 70 mm[Hg] Senthil Caldera [facility] 09-07-2021 12:48-0400 Heart rate 72 /min Senthilleopoldo Caldera [facility] 09-07-2021 12:48-0400 Mean blood pressure 83 mm[Hg] Senthil Caldera [facility] 09-07-2021 12:48-0400 SaO2% (BldA) [Mass fraction] 96 % Senthilleopoldo Caldera [facility] 09-07-2021 12:48-0400 Systolic blood pressure 109 mm[Hg] Senthilleopoldo Caldera [facility] 09-07-2021 12:00-0400 Heart rate 69 /min Senthilleopoldo Caldera [facility] 09-07-2021 12:00-0400 SaO2% (BldA) [Mass fraction] 98 % Senthilleopoldo Caldera [facility] 09-03-2021 00:20-0400 Body temperature 98.78 [degF] Carlos Martin [facility] 09-03-2021 00:20-0400 Diastolic blood pressure 80 mm[Hg] Carlos Martin [facility] 09-03-2021 00:20-0400 Heart rate 86 /min Carlos Martin [facility] 09-03-2021 00:20-0400 Respiratory rate 16 /min Carlos Martin [facility] 09-03-2021 00:20-0400 SaO2% (BldA) [Mass fraction] 95 % Carlos Martin [facility] 09-03-2021 00:20-0400 Systolic blood pressure 146 mm[Hg] Carlos Martin [facility] 08-10-2021 12:35-0400 Body temperature 98.06 [degF] Rickey Askew [facility] 08-10-2021 12:35-0400 Diastolic blood pressure 72 mm[Hg] Rickey Askew [facility] 08-10-2021 12:35-0400 Heart rate 77 /min Rickey Askew [facility] 08-10-2021 12:35-0400 Mean blood pressure 84 mm[Hg] Rickey Askew [facility] 08-10-2021 12:35-0400 Respiratory rate 12 /min Rickey Askew [facility] 08-10-2021 12:35-0400 SaO2% (BldA) [Mass fraction] 97 % Rickey Askew [facility] 08-10-2021 12:35-0400 Systolic blood pressure 108 mm[Hg] Rickey Askew [facility] 07-26-2021 10:27-0400 Body temperature 97.88 [degF] [facility] 07-26-2021 10:27-0400 Diastolic blood pressure 84 mm[Hg] [facility] 07-26-2021 10:27-0400 Heart rate 59 /min [facility] 07-26-2021 10:27-0400 Mean blood pressure 112 mm[Hg] [facility] 07-26-2021 10:27-0400 SaO2% (BldA) [Mass fraction] 97 % [facility] 07-26-2021 10:27-0400 Systolic blood pressure 169 mm[Hg] [facility] 07-26-2021 10:00-0400 Respiratory rate 16 /min [facility] 07-18-2021 12:18-0400 Body temperature 97.7 [degF] [facility] 07-18-2021 12:18-0400 Diastolic blood pressure 83 mm[Hg] Senthil Caldera [facility] 07-18-2021 12:18-0400 Heart rate 60 /min Senthil Caldera [facility] 07-18-2021 12:18-0400 Mean blood pressure 106 mm[Hg] Senthil Caldera [facility] 07-18-2021 12:18-0400 SaO2% (BldA) [Mass fraction] 98 % Senthilleopoldo Caldera [facility] 07-18-2021 12:18-0400 Systolic blood pressure 152 mm[Hg] Senthilleopoldo Caldera [facility] 07-18-2021 12:00-0400 Respiratory rate 16 /min Senthilleopoldo Caldera [facility] 07-11-2021 10:20-0400 Body temperature 97.7 [degF] Gavino MARCOSRosemarie [facility] General Surgery Range Encounters Encounter Date Encounter Type Care Provider Facility Start: 12-15-2024 End: 12-15-2024 ambulatory Senthil Caldera Facility[place] Start: 11-17-2024 End: 11-17-2024 ambulatory Senthil Caldera Facility:[facility] Start: 10-20-2024 End: 10-20-2024 ambulatory Senthil Caldera Facility:[facility] Start: 10-20-2024 End: 10-20-2024 Patient encounter procedure Senthil Caldera [facility] Start: 09-30-2024 End: 09-30-2024 External Result Encounter Senthil Caldera DO Work Phone: [facility] External Department Unsolicited Start: 09-30-2024 End: 09-30-2024 External Result Encounter Senthil Caldera DO Work Phone: [facility] External Department Unsolicited Start: 09-30-2024 End: 09-30-2024 Patient encounter procedure Mary Rodriguez MD Work Phone: [facility] Work Phone: Start: 09-30-2024 End: 09-30-2024 ambulatory Mary Rodriguez MD Work Phone: [facility] Work Phone: Start: 09-22-2024 End: 09-22-2024 ambulatory Senthil Caldera Facility:[facility] Start: 09-22-2024 End: 09-22-2024 Patient encounter procedure Senthil Caldera [facility] Start: 09-09-2024 End: 09-09-2024 ambulatory Senthil Caldera [facility] [facility] Start: 09-09-2024 End: 09-09-2024 Patient encounter procedure Senthil Caldera [facility] Start: 08-25-2024 End: 08-25-2024 ambulatory Senthil Caldera Facility:[facility] Start: 08-25-2024 End: 08-25-2024 Patient encounter procedure Senthil Caldera [facility] Start: 08-17-2024 End: 08-17-2024 External Result Encounter Senthil Caldera DO Work Phone: [facility] Unsolicited Start: 08-17-2024 End: 08-17-2024 External Result Encounter Senthil Caldera DO Work Phone: [facility] Unsolicited Start: 08-17-2024 End: 08-17-2024 Patient encounter procedure Mary Rodriguez MD Work Phone: [facility] Work Phone: Start: 08-17-2024 End: 08-17-2024 ambulatory Mary Rodriguez MD Work Phone: [facility] Work Phone: Start: 07-28-2024 End: 07-28-2024 ambulatory Senthil Caldera Facility:[facility] Start: 07-28-2024 End: 07-28-2024 Patient encounter procedure Senthil Caldera [facility] Start: 06-30-2024 End: 06-30-2024 ambulatory Senthil Caldera Facility:[facility] Start: 06-30-2024 End: 06-30-2024 Patient encounter procedure Senthil Caldera [facility] Start: 06-02-2024 End: 06-02-2024 ambulatory Senthil Caldera Facility:[facility] Start: 06-02-2024 End: 06-02-2024 Patient encounter procedure Senthil Caldera [facility] Start: 05-13-2024 End: 05-13-2024 ambulatory Senthil Caldera Facility:[facility] Start: 05-13-2024 End: 05-13-2024 Patient encounter procedure Senthil Caldera [facility] Start: 05-05-2024 End: 05-05-2024 ambulatory Senthil Caldera Facility:[facility] Start: 05-05-2024 End: 05-05-2024 Patient encounter procedure Senthil Caldera [facility] Start: 04-29-2024 End: 04-29-2024 External Result Encounter Senthil Caldera DO Work Phone: [facility] Unsolicited Start: 04-29-2024 End: 04-29-2024 External Result Encounter Senthil Caldera DO Work Phone: [facility] Unsolicited Start: 04-29-2024 End: 04-29-2024 Patient encounter procedure Mary Rodriguez MD Work Phone: [facility] Work Phone: Start: 04-29-2024 End: 04-29-2024 ambulatory Mary Rodriguez MD Work Phone: [facility] Work Phone: Start: 04-07-2024 End: 04-07-2024 ambulatory Senthil Caldera Facility:[facility] Start: 04-07-2024 End: 04-07-2024 Patient encounter procedure Senthil Caldera [facility] Start: 03-10-2024 End: 03-10-2024 ambulatory Senthil Caldera Facility:[facility] Start: 03-10-2024 End: 03-10-2024 Patient encounter procedure Senthil Caldera [facility] Start: 02-25-2024 End: 02-25-2024 ambulatory Senthil Caldera Facility:[facility] Start: 02-25-2024 End: 02-25-2024 Patient encounter procedure Senthil Caldera [facility] Start: 02-11-2024 End: 02-11-2024 ambulatory Senthil Caldera Facility:[facility] Start: 02-11-2024 End: 02-11-2024 Patient encounter procedure Senthil Caldera [facility] Start: 01-09-2024 End: 01-09-2024 ambulatory Senthil Caldera Facility:[facility] Start: 01-09-2024 End: 01-09-2024 Patient encounter procedure Senthil Caldera [facility] Start: 01-01-2024 End: 01-01-2024 Clinisync Result Encounter Mary Rodriguez MD Work Phone: [facility] Unsolicited Start: 01-01-2024 End: 01-01-2024 Clinisync Result Encounter Mary Rodriguez MD Work Phone: [facility] Unsolicited Start: 12-30-2023 End: 12-30-2023 External Result Encounter Senthil Caldera DO Work Phone: [facility] Unsolicited Start: 12-30-2023 End: 12-30-2023 External Result Encounter Senthil Caldera DO Work Phone: [facility] Unsolicited Start: 12-30-2023 End: 12-30-2023 Patient encounter procedure MD Mary Rodriguez Work Phone: [facility] Work Phone: Start: 12-30-2023 End: 12-30-2023 ambulatory MD Mary Rodriguez Work Phone: [facility] Work Phone: Start: 12-27-2023 End: 12-27-2023 Clinisync Result Encounter Mary Rodriguez MD Work Phone: [facility] Unsolicited Start: 12-27-2023 End: 12-27-2023 Clinisync Result Encounter Mary Rodriguez MD Work Phone: [facility] Unsolicited Start: 09-12-2023 End: 09-13-2023 ambulatory Senthil Caldera Facility:[facility] Start: 09-12-2023 ambulatory Senthil Caldera [facility]y:[facility] Start: 09-12-2023 End: 09-12-2023 Patient encounter procedure Senthil Caldera [facility] Start: 08-30-2023 End: 08-30-2023 ambulatory MD Mary Rodriguez Work Phone: [facility] Work Phone: Start: 08-30-2023 End: 08-30-2023 Patient encounter procedure MD Mary Rodriguez Work Phone: [facility] Work Phone: Start: 06-12-2023 End: 06-12-2023 ambulatory Senthil Caldera Facility:[facility] Start: 06-12-2023 End: 06-12-2023 Patient encounter procedure Senthil Caldera [facility] Start: 06-05-2023 Clinisync Result Encounter Mary Rodriguez MD Work Phone: [facility] Unsolicited Start: 06-05-2023 Clinisync Result Encounter Mary Rodriguez MD Work Phone: [facility] Unsolicited Start: 05-31-2023 External Result Encounter Senthil Zapata Verenice DO Work Phone: [facility] Unsolicited Start: 05-31-2023 External Result Encounter Senthil Zapata Verenice DO Work Phone: [facility] Unsolicited Start: 05-31-2023 End: 05-31-2023 ambulatory MD Mary Rodriguez Work Phone: [facility] Work Phone: Start: 05-31-2023 End: 05-31-2023 Patient encounter procedure MD Mary Rodriguez Work Phone: [facility] Work Phone: Start: 05-24-2023 Clinisync Result Encounter Mary Rodriugez MD Work Phone: [facility] Unsolicited Start: 05-24-2023 Clinisync Result Encounter Mary Rodriguez MD Work Phone: [facility] Unsolicited Start: 05-01-2023 End: 05-01-2023 ambulatory Senthilleopoldo Hollidayjuliaflaquito Facility:[facility] Start: 05-01-2023 End: 05-01-2023 Patient encounter procedure Senthil Caldera [facility] Start: 01-30-2023 End: 01-30-2023 ambulatory Senthilleopoldo Hollidayeligio Facility:[facility] Start: 01-30-2023 End: 01-30-2023 Patient encounter procedure Senthil Caldera [facility] Start: 12-20-2022 End: 12-23-2022 Evaluation and management of inpatient Zaheer Sloan Facility:[facility] Start: 12-20-2022 End: 12-23-2022 Evaluation and management of inpatient Nic LEIGHAKWU [facility] Start: 12-19-2022 End: 12-20-2022 Emergency department patient visit David Tong [facility] Start: 12-17-2022 End: 12-17-2022 Emergency department patient visit Jeffery Murphy [facility] Start: 12-14-2022 End: 12-14-2022 ambulatory Sammy QUEZADA Facility:[id number] Start: 12-14-2022 End: 12-14-2022 Manual pelvic examination [facility] Start: 12-05-2022 ambulatory [employer]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 Lorie Slater Facility:CD:[id number] Start: 11-16-2022 End: 12-16-2022 ambulatory Senthil Verenice Facility:[id number] Start: 11-16-2022 End: 12-16-2022 In-Between Visit [facility] Start: 11-06-2022 End: 11-06-2022 ambulatory Sammythea QUEZADA Facility:[id number] Start: 11-06-2022 End: 11-06-2022 Off-Site Sammythea [facility] Start: 11-04-2022 End: 12-15-2022 ambulatory Sammy QUEZADA Facility:[facility] Start: 11-01-2022 End: 11-04-2022 ambulatory Wyatt Murray Facility:[facility] Start: 11-01-2022 End: 11-04-2022 Observation Mariia LOPEZ [facility] Start: 09-25-2022 End: 09-25-2022 Patient encounter procedure Senthil Caldera [facility] Start: 08-01-2022 End: 08-01-2022 Patient encounter procedure Senthil Caldera [facility] Start: 07-30-2022 End: 07-30-2022 Patient encounter procedure Senthil Caldera [facility] Start: 07-25-2022 End: 10-23-2022 Recurring Senthil Caldera [facility] Start: 07-09-2022 End: 07-09-2022 Patient encounter procedure Senthil Caldera [facility] Start: 06-06-2022 End: 06-06-2022 Patient encounter procedure Senthilleopoldo Caldera [facility] Start: 03-28-2022 End: 03-28-2022 Patient encounter procedure Senthil Caldera [facility] Start: 03-17-2022 End: 06-17-2022 Recurring Nohemi Gerard Radha [facility] Start: 01-18-2022 End: 01-18-2022 Patient encounter procedure Senthil Caldera [facility] Start: 01-02-2022 End: 09-03-2022 Recurring Senthil Caldera [facility] Start: 12-26-2021 End: 12-26-2021 Patient encounter procedure Senthil Caldera [facility] Start: 12-21-2021 End: 12-21-2021 Patient encounter procedure Nohemi Gerard Radha [facility] Start: 11-30-2021 End: 11-30-2021 Patient encounter procedure Senthil Caldera [facility] Start: 11-27-2021 End: 11-27-2021 Patient encounter procedure Senthil Caldera [facility] Start: 11-25-2021 End: 02-23-2022 Recurring Nohemi Garcia [facility] Start: 11-02-2021 End: 11-02-2021 Patient encounter procedure Nohemi Garcia [facility] Start: 11-01-2021 End: 11-01-2021 Patient encounter procedure Senthil Caldera [facility] Start: 10-05-2021 End: 10-05-2021 Patient encounter procedure Senthil Caldera [facility] Start: 10-02-2021 End: 10-02-2021 Patient encounter procedure Senthil Caldera [facility] Start: 09-07-2021 End: 09-07-2021 Patient encounter procedure Senthil Caldera [facility] Start: 09-03-2021 End: 09-03-2021 Emergency department patient visit Carlos Salazar [facility] Start: 08-21-2021 End: 08-21-2021 Patient encounter procedure Senthil Caldera [facility] Start: 08-21-2021 End: 08-21-2021 Patient encounter procedure Senthil Caldera [facility] Start: 08-10-2021 End: 08-10-2021 Patient encounter procedure Rickey Askew [facility] Start: 08-07-2021 End: 08-07-2021 Patient encounter procedure Senthil Caldera [facility] Start: 07-26-2021 End: 07-26-2021 Patient encounter procedure Senthil Caldera [facility] Start: 07-26-2021 End: 07-26-2021 Patient encounter procedure Senthil Caldera [facility] Start: 07-25-2021 End: 08-18-2021 Pre-admission assessment Gavino TABOR [facility] Start: 07-18-2021 End: 07-18-2021 Patient encounter procedure Senthil Caldera [facility] Start: 07-11-2021 End: 07-11-2021 Patient encounter procedure Gavino TABOR [facility] Procedures Date Procedure Procedure Detail Performing Clinician Start: 09-30-2024 GLUCOSE POCT GLUCOMETERS Senthil J Verenice DO Work Phone: Start: 09-30-2024 Positron emission tomography with computed tomography Mary Rodriguez MD Work Phone: Start: 08-17-2024 GLUCOSE POCT GLUCOMETERS Senthil Caldera DO Work Phone: Start: 08-17-2024 Positron emission tomography with computed tomography Mary Rodriguez MD Work Phone: Start: 04-29-2024 GLUCOSE POCT GLUCOMETERS Senthil Caldera DO Work Phone: Start: 04-29-2024 Positron emission tomography with computed tomography Mary Rodriguez MD Work Phone: Start: 01-01-2024 ALL CBC WITH AUTO DIFF Mary Rodriguez MD Work Phone: Start: 12-30-2023 GLUCOSE POCT GLUCOMETERS Senthil Caldera DO Work Phone: Start: 12-30-2023 Positron emission tomography with computed tomography MD Mary Rodriguez Work Phone: Start: 12-27-2023 ALL CBC WITH AUTO DIFF Mary Rodriguez MD Work Phone: Start: 08-30-2023 Positron emission tomography with computed [...] Screening for malign ant neoplasm of colon [facility] Start: 12-22-2023 Influenza vaccination Influenza Vacc ine (#1) [facility] Start: 09-26-2023 Urine screening for protein Diabetes: Urine Protein Screening [facility] Start: 01-24-2023 Hemoglobin A1c measurement Diabetes: Hemoglobin A1C [facility] Start: 12-21-2022 Influenza vaccination Influenza Vacc ine (#1) [facility] Start: 09-13-2022 Medicare Annual Well ness (AWV) Medicare Annual Wellness (AWV) [facility] Start: 1968 Urine screening for protein Diabetes: Urine Protein Screening [facility] Start: 07-09-1959 Glaucoma screening Diabetes: R etinopathy Screening [facility] Start: 1950 Screening for malign ant neoplasm of colon [facility] Immunizations Immunization Date Immunization Notes Care Provider Fa leeanne 02-13-2021 Influenza, High-dose Seasonal, Quadrivalent, Preservative Free Mary Rodriguez MD Work Phone: [facility] 02-13-2021 influenza virus vaccine, unspecified formulation Mary Rodriguez MD Work Phone: [facility] 01-20-2021 influenza virus vaccine, unspecified formulation Gavino TABOR [facility] 05-22-2019 influenza, high dose seasonal, preservative-free Mary Rodriguez MD Work Phone: [facility] 03-19-2018 influenza, high dose seasonal, preservative-free Mary Rodriguez MD Work Phone: [facility] 04-12-2017 influenza, high dose seasonal, preservative-free Mary Rodriguez MD Work Phone: [facility] 04-12-2017 pneumococcal conjuga te vaccine, 13 valent Mary Rodriguez MD Work Phone: [facility] Payers Date Payer Category Payer Medicare [id number] 2024 Private Health Insurance [id number] 2024 Private Health Insurance [id number] 2023 Self-pay 2023 Medicaid [id number] 2022 Medicaid [id number] 2022 Medicare [id number] 2022 Medicare (Managed Care) 1.2. [id number] 2022 Unknown [employer] IP[employer]pert [id number] 2022-Present [address] [place] [address] [id number] .[id number] 1949 Unknown [id number] 2.16.840.1.066356.3.579.2.7 27 1949 Unknown [id number] 2.16.840.1.998669.3.579.2.7 27 1949 Unknown [id number] 2.16.840.1.113353.3.579.2.7 27 1949 Unknown [id number] 2.16.840.1.538405.3.579.2.7 27 1949 Unknown [id number] 2.16.840.1.590088.3.579.2.7 27 1949 Unknown [id number] 2.16.840.1.816477.3.579.2.7 27 1949 Unknown [id number] 2.16.840.1.114261.3.579.2.7 27 1949 Unknown [id number] 2.16.840.1.059291.3.579.2.7 27 1949 Unknown [id number] 2.16.840.1.903811.3.579.2.7 27 1949 Unknown [id number] 2.16.840.1.727228.3.579.2.7 27 1949 Unknown [id number] 2.16.840.1.084578.3.579.2.7 27 1949 Unknown [id number] 2.16.840.1.186339.3.579.2.7 1949 Unknown [id number] 2.16.840.1.426136.3.579.2.7 1949 Unknown [id number] 2.16.840.1.779236.3.579.2.7 1949 Unknown [id number] 2.16.840.1.095902.3.579.2.7 1949 Unknown [id number] 2.16.840.1.018632.3.579.2.7 1949 Unknown [id number] 2.16.840.1.736798.3.579.2.7 1949 Unknown [id number] 2.16.840.1.657065.3.579.2.7 1949 Unknown [id number] 2.16.840.1.875468.3.579.2.7 1949 Unknown [id number] 2.16.840.1.458337.3.579.2.7 1949 Unknown [id number] 2.16.840.1.640816.3.579.2.7 1949 Unknown [id number] 2.16.840.1.236788.3.579.2.7 1949 Unknown [id number] 2.16.840.1.261288.3.579.2.7 1949 Unknown [id number] 2.16.840.1.774043.3.579.2.7 1949 Unknown [id number] 2.16.840.1.172196.3.579.2.7 1949 Unknown [id number] 2.16.840.1.270447.3.579.2.7 1949 Unknown [id number] 2.16.840.1.798965.3.579.2.7 1949 Unknown [id number] 2.16.840.1.880375.3.579.2.7 27 1949 Unknown [id number] 2.16.840.1.109185.3.579.2.7 27 Unknown [id number] 2.16.840.1.596132.3.579.2.5 31 Unknown [id number] 2.16.840.1.134146.3.579.2.5 31 Unknown [id number] 2.16.840.1.296224.3.579.2.5 31 Unknown [id number] 2.16.840.1.364380.3.579.2.5 31 Social History Date Type Detail Facility Start: 07-04-2021 End: 09-09-2024 Tobacco smoking status Never smoked tobacco (finding) [facility] Tobacco smoking status Never [facility] Start: 10-24-2022 Sex Assigned At Female F [facility] Start: 09-19-2022 Tobacco use and exposure Smoke less tobacco non-user [facility] Start: 10-24-2022 History of Social function [facility] Start: 1950 Sex Assigned At Not on file [facility] Start: 1950 Sex Assigned At Female F [facility] Work Phone: Start: 04-30-2024 Sex Patient sex un known (finding) [facility] Sexual Orientation [facility] Start: 07-11-2018 End: 10-01-2024 Sex Female (finding) [facility] Functional Status Date Assessment Result Facility 12-20-2022 Functional Status No [facility] 12-20-2022 Functional Status [facility] 12-19-2022 Functional Status N/A [facility] 12-17-2022 Functional Status N/A [facility] 11-02-2022 Functional Status N/A [facility] 11-01-2022 Functional Status [facility] Clinical Notes 07-11-2021 to 09-30-2024 Note Date & Type Note Facility 09-30-2024 Nuclear medicine Diagnostic study note [facility] [place] [address] [place] [address] Nuclear Medicine Report Signed Patient: Marlen Staley MR#: [id number] : 1950 Acct:[id number] Age/Sex: 74 / F ADM Date: 5 Loc: Room: Type: [facility] Attending Dr: Senthil Caldera - [facility] DO Copies to: Fady Muir Jr, DO Senthil Caldera DO~ Ordering Provider: Senthil Caldera DO Date of Service: 09/30/24 PET/PET tumor subq tx strat sb-mt: breast cancer PET/CT FUSION IMAGING CLINICAL INFORMATION: Colon cancer breast cancer. COMPARISON : Prior PET/CT 08/17/2024 TECHNIQUE: Noncontrasted CT scan from the base of the skull to the upper thigh followed by PET imaging. Multiplanar PET/CT fusion images. Blood Glucose : 129 mg/dL The F-18 FDG 12.89mCi. FINDINGS: Neck: No focal abnormal activity. Chest:1 demonstrated residual abnormal activity involving the right breast, SUV max 4.9. No abnormal activity is seen involving the left breast. No abnormal activity is seen involving the axillary regions. No abnormal activity is seen involving the lungs. There appears to be a FDG avid left paratracheal lymph node, SUV max of 3.0. Abdomen/pelvis: No focal abnormal activity. Soft tissue/bones: No focal abnormal activity. CT findings: No pericardial or pleural effusions. No pneumothorax. No free airor free fluid. Healed remote fracture left pubic rami. PET/PET tumor subq tx strat sb-mt IMPRESSION: Residual abnormal activity involving the right breast consistent with residual disease. FDG avid left paratracheal lymph node new since prior PET/CT. Progression of disease cannot BE excluded. Impression dictated by: Fady Muir Jr., D.O. 09/30/2024 11:48 AM Dictation Location: [facility] Transcribed By: [facility] 09/30/24 1148 Dictated By: Fady Muir Jr, DO 09/30/24 1057 Signed By: 09/30/24 1148 [facility] 09-09-2024 Note Oncology Progress No te Chief Complaint Follow up on breast cancer, no questions or concerns. Oncological History/ROS/PE/Assessment and Plan 74-year-old female referred for breast cancer. Initially presented [...] cm in length. ER greater than 95, AK greater than 95. Her2 1+ (this is negative) PETCT showed large breast mass, multiple large axillary masses. A glenoid hypermetabolic lesion R side and a mid thoracic vertebral body area of FDG uptake. Began kisquali arimidex in august 2021. tolerated well. PET/CT from 11/25/21. IMPRESSION: INTERVAL IMPROVEMENT, WITH DECREASE IN SIZE AND DECREASE IN UPTAKE OF ACTIVITY BY THE PREVIOUSLY NOTED RIGHT BREAST MASS AND RIGHT AXILLARY LYMPH NODES. PREVIOUSLY SUSPECTED BONE METASTASES OF THE RIGHT GLENOID PROCESS AND L4 VERTEBRAL BODY NO LONGER DEMONSTRATE INCREASED UPTAKE. PET/CT Mar 2022 noted increase in size and decrease in SUV of breast mass. lymph nodes smaller in size and higher SUV. small foral area L4 uncertain significance. pet/ct 07/25/22 notes smaller breast mass. No metastatic disease. CONTINUED KISQUALI ARIMIDEX. 06/12/23 Continues kisquali and arimidex. recent PET/CT. notes interval enlargement of the right breast mass with development of 2 nodules with increased hypermetabolism with maximal size of 2.7cm. no right ax node. also development of hypermetabolic supraclavicular and superior mediastinal hypermetabolic lymph node concerning for metastasis. a developing region of hypermetabolism in the right ribs near the costovertebral junctions may correspond with inflammatory changes. Developing regions in left pleural area paraspinally indeterminate, may be inflammatory\ she feels well, cannot feel her breast mass. will change her arimidex to exemestane based on this. her team put her on iron tablet. scanned labs with low normal iron. normal b12, folate, hb 9.4 with mcv 104. September 12, 2023 Recent PET/CT from [facility] that was compared to a PET/CT from May notes slightly enlarging right breast nodule 2.3 cm from previous 1.8 cm. No other evidence of metastatic disease or progression of disease. continues on 200mg kisquali and exemestane. no complaints. 01/09/24 hb 10.2 stable. creat 1.2 stable. labs scanned from [facility]. Recent PET/CT from [facility] notes enlargement of her primary right breast mass from 2.3cm to 3.8cm. we think she is on kisquali 400mg daily (600mg is standard dose). she is supposed to be on exemestane daily as well. review of med list from [facility] confirms. will raise kisquali to full dose and stop exemestane and start faslodex. 05/13/24 she is doing well, enjoys the custodial for the most part. continues kisquali. no changes in her breast. [facility]. continues faslodex kisquali. her pet/ct at [facility] with improved tumor and axillary adenopathy. 09/09/24 recent labs from may 26 noted hb 9.8, mcv 105, albumin 3.3, creat 1.6, b12 good. continues monthly faslodex (with kisquali). pet/ct from 08/07/24 at [facility] notes no significant change in pet/ct finding compared to 04/29/24. Residual abnormal activity in right breast with subthreshold activity involving right axillary lymph nodes. she is inquiring about variability in her injection site discomfort. faslodex. Physical Examination PS 3 - lives in [facility], in wheelchair today, cant stand or walk currently. General: Alert and oriented, no acute distress. Eye: Extraocular movements are intact, normal conjunctiva. HENT: Normocephalic, normal hearing. Neck: Supple, non-tender, no jugular venous distention. Cardiovascular: Normal rate, regular rhythm, no murmur, no edema. Gastrointestinal: Soft, non-tender, non-distended, normal bowel sounds, no organomegaly. Respiratory: Clear to auscultation bilaterally, no wheezes, rhonchi or rales. Integumentary: Warm, dry, pink, no pallor, no rash. Psychiatric: Cooperative, appropriate mood & affect. breast not examined. Impression and Plan Metastatic breast cancer, Stage IV. ER greatly positive and AK greatly positive. Her2 negative. two bony mets on pet/ct in june 2021. These are not lesions that are very easy to biopsy. She is very hesitant for aggressive therapy or chemotherapy at nm (more content not included)... [facility] 08-17-2024 Nuclear medicine Diagnostic study note [facility] [place] [address] [place] [address] Nuclear Medicine Report Signed Patient: Marlen Staley MR#: [id number] : 1950 Acct:[id number] Age/Sex: 74 / F ADM Date: 5 Loc: Room: Type: [facility] Attending Dr: Senthil Caldera - [facility] [place] Copies to: Fady Muir Jr, DO Senthil Caldera DO~ Ordering Provider: Senthil Caldera DO Date of Service: 08/17/24 PET/PET tumor subq tx strat sb-mt: BREAST PET/CT FUSION IMAGING CLINICAL INFORMATION: Breast cancer COMPARISON : Prior PET/CT 04/29/2024 TECHNIQUE: Noncontrasted CT scan from the base of the skull to the upper thigh followed by PET imaging. Multiplanar PET/CT fusion images. Blood Glucose : 121 mg/dL The F-18 FDG 11.32mCi. FINDINGS: Neck: No abnormal activity. Chest:Persistent abnormal activity is seen involving the right breast, SUV max of 3. Subthreshold FDG avid right axillary lymph nodes, SUV max of 1.6. No abnormal activity is seen involving the lungs are mediastinum. Abdomen/pelvis: No abnormal activity. Soft tissue/bones: No abnormal activity. CT findings: No pneumothorax. No pericardial pleural effusions. No free air orfree fluid. PET/PET tumor subq tx strat sb-mt IMPRESSION: No significant change in PET/CT findings compared to the prior study from 04/29/2024. Residual abnormal activity is seen involving the right breast with subthreshold activity involving right axillary lymph nodes. Impression dictated by: Fady Muir Jr., DAspenOAspen 08/17/2024 3:15 PM Dictation Location: [facility]22 Transcribed By: [facility] 08/17/24 1515 Dictated By: Fady Muir Jr, DO 08/17/24 1455 Signed By: 08/17/24 1515 [facility] 05-16-2024 Note Oncology Progress No te Chief Complaint Breast Ca; here to go over results. Oncological History/ROS/PE/Assessment and Plan 73-year-old female referred for breast cancer. Initially presented [...] cm in length. ER greater than 95, AK greater than 95. Her2 1+ (this is negative) PETCT showed large breast mass, multiple large axillary masses. A glenoid hypermetabolic lesion R side and a mid thoracic vertebral body area of FDG uptake. Began kisquali arimidex in august 2021. tolerated well. PET/CT from 11/25/21. IMPRESSION: INTERVAL IMPROVEMENT, WITH DECREASE IN SIZE AND DECREASE IN UPTAKE OF ACTIVITY BY THE PREVIOUSLY NOTED RIGHT BREAST MASS AND RIGHT AXILLARY LYMPH NODES. PREVIOUSLY SUSPECTED BONE METASTASES OF THE RIGHT GLENOID PROCESS AND L4 VERTEBRAL BODY NO LONGER DEMONSTRATE INCREASED UPTAKE. PET/CT Mar 2022 noted increase in size and decrease in SUV of breast mass. lymph nodes smaller in size and higher SUV. small foral area L4 uncertain significance. pet/ct 07/25/22 notes smaller breast mass. No metastatic disease. CONTINUED KISQUALI ARIMIDEX. 06/12/23 Continues kisquali and arimidex. recent PET/CT. notes interval enlargement of the right breast mass with development of 2 nodules with increased hypermetabolism with maximal size of 2.7cm. no right ax node. also development of hypermetabolic supraclavicular and superior mediastinal hypermetabolic lymph node concerning for metastasis. a developing region of hypermetabolism in the right ribs near the costovertebral junctions may correspond with inflammatory changes. Developing regions in left pleural area paraspinally indeterminate, may be inflammatory\ she feels well, cannot feel her breast mass. will change her arimidex to exemestane based on this. her team put her on iron tablet. scanned labs with low normal iron. normal b12, folate, hb 9.4 with mcv 104. September 12, 2023 Recent PET/CT from [facility] that was compared to a PET/CT from May notes slightly enlarging right breast nodule 2.3 cm from previous 1.8 cm. No other evidence of metastatic disease or progression of disease. continues on 200mg kisquali and exemestane. no complaints. 01/09/24 hb 10.2 stable. creat 1.2 stable. labs scanned from [facility]. Recent PET/CT from [facility] notes enlargement of her primary right breast mass from 2.3cm to 3.8cm. we think she is on kisquali 400mg daily (600mg is standard dose). she is supposed to be on exemestane daily as well. review of med list from [facility] confirms. will raise kisquali to full dose and stop exemestane and start faslodex. 05/13/24 she is doing well, enjoys the custodial for the most part. continues kisquali. no changes in her breast. [facility]. continues faslodex kisquali. her pet/ct at [facility] with improved tumor and axillary adenopathy. Physical Examination PS 3 - lives in [facility], in wheelchair today, cant stand or walk currently. General: Alert and oriented, no acute distress. Eye: Extraocular movements are intact, normal conjunctiva. HENT: Normocephalic, normal hearing. Neck: Supple, non-tender, no jugular venous distention. Cardiovascular: Normal rate, regular rhythm, no murmur, no edema. Gastrointestinal: Soft, non-tender, non-distended, normal bowel sounds, no organomegaly. Respiratory: Clear to auscultation bilaterally, no wheezes, rhonchi or rales. Integumentary: Warm, dry, pink, no pallor, no rash. Psychiatric: Cooperative, appropriate mood & affect. R breast mass very vauge density, not measurable. no axillary adenopathy. Impression and Plan Metastatic breast cancer, Stage IV. ER greatly positive and AK greatly positive. Her2 negative. two bony mets on pet/ct in june 2021. These are not lesions that are very easy to biopsy. She is very hesitant for aggressive therapy or chemotherapy at all. Offered palliative ribociclib and arimidex. Started ribociclib in August 2021. She is tolerating well overall. September 2021 continues to tolerate therapy very well. Will monitor creatinine with routine labs Nov 2021 with excellent response on PET/CT. HELD Kisqali for 3wks in November 2021 d/t renal failure. Renal function back to normal after holding Re-started Kisqali at 200mg daily 3wks o (more content not included)... [facility] 04-29-2024 Nuclear medicine Diagnostic study note [facility] [place] [address] [place] [address] Nuclear Medicine Report Signed Patient: Marlen Staley MR#: [id number] : 1950 Acct:[id number] Age/Sex: 73 / F ADM Date: 5 Loc: Room: Type: [facility] Attending Dr: Senthil Caldera - [facility] [place] Copies to: MD Senthil Guo, ~ Ordering Provider: Senthil Caldera DO Date of Service: 04/29/24 PET/PET tumor subq tx strat sb-mt: Breast cancer PET/CT FUSION IMAGING CLINICAL INFORMATION: Breast cancer COMPARISON : PET/CT 12/30/2023 TECHNIQUE: Noncontrasted CT scan from the base of the skull to the upper thigh followed by PET imaging. Multiplanar PET/CT fusion images. The blood sugar is 189mg/dL. The F-18 FDG amount is 12mCi. FINDINGS: Neck: Relatively symmetric activity within the neck musculature and submandibular glands , Likely physiologic Chest: Right breast mass represents a decrease in size and with substantially diminished uptake measuring up to 2.1 SUV. Subcentimeter right axillary lymph node 1.8 SUV No additional foci of hypermetabolic activity within the chest. Abdomen/pelvis: No FDG avid hypermetabolic activity Soft tissue/bones: No abnormally elevated FDG avid hypermetabolic activity. CT findings: Heterogeneously enlarged left thyroid lobe 4.5 cm AP dimension. Cardiomegaly with coronary artery calcifications. There is a moderate size hiatal hernia. Bibasilar atelectasis plus parenchymal bands both lower lobes. Left renal cyst. Degenerative changes of the thoracolumbar spine and shoulders. Degenerative changes of the bilateral hips. PET/PET tumor subq tx strat sb-mt IMPRESSION: Minimal residual disease right breast and right axilla, this suggests a favorable treatment response. No evidence of new or progressive disease. Impression dictated by: Carlos Guaman M.D.04/29/2024 4:17 PM Dictation Location: [place] [address] Transcribed By: [facility] 04/29/24 1617 Dictated By: Carlos Guaman MD 04/29/24 1607 Signed By: 04/29/24 1617 [facility] Work Phone: 01-09-2024 Note Oncology Progress No te Chief Complaint Breast Ca; here to go over results. Diagnoses Breast cancer metastasized to bone (C50.919: Malignant neoplasm of unspecified site of unspecified female breast) Secondary malignant neoplasm of bone (C79.51: Secondary malignant neoplasm of bone) Oncological History/ROS/PE/Assessment and Plan 71-year-old female referred [...] cm in length. ER greater than 95, AK greater than 95. Her2 1+ (this is negative) PETCT showed large breast mass, multiple large axillary masses. A glenoid hypermetabolic lesion R side and a mid thoracic vertebral body area of FDG uptake. Began kisquali arimidex in august 2021. tolerated well. PET/CT from 11/25/21. IMPRESSION: INTERVAL IMPROVEMENT, WITH DECREASE IN SIZE AND DECREASE IN UPTAKE OF ACTIVITY BY THE PREVIOUSLY NOTED RIGHT BREAST MASS AND RIGHT AXILLARY LYMPH NODES. PREVIOUSLY SUSPECTED BONE METASTASES OF THE RIGHT GLENOID PROCESS AND L4 VERTEBRAL BODY NO LONGER DEMONSTRATE INCREASED UPTAKE. PET/CT Mar 2022 noted increase in size and decrease in SUV of breast mass. lymph nodes smaller in size and higher SUV. small foral area L4 uncertain significance. pet/ct 07/25/22 notes smaller breast mass. No metastatic disease. CONTINUED KISQUALI ARIMIDEX. 06/12/23 Continues kisquali and arimidex. recent PET/CT. notes interval enlargement of the right breast mass with development of 2 nodules with increased hypermetabolism with maximal size of 2.7cm. no right ax node. also development of hypermetabolic supraclavicular and superior mediastinal hypermetabolic lymph node concerning for metastasis. a developing region of hypermetabolism in the right ribs near the costovertebral junctions may correspond with inflammatory changes. Developing regions in left pleural area paraspinally indeterminate, may be inflammatory\ she feels well, cannot feel her breast mass. will change her arimidex to exemestane based on this. her team put her on iron tablet. scanned labs with low normal iron. normal b12, folate, hb 9.4 with mcv 104. September 12, 2023 Recent PET/CT from [facility] that was compared to a PET/CT from May notes slightly enlarging right breast nodule 2.3 cm from previous 1.8 cm. No other evidence of metastatic disease or progression of disease. continues on 200mg kisquali and exemestane. no complaints. 01/09/24 hb 10.2 stable. creat 1.2 stable. labs scanned from [facility]. Recent PET/CT from [facility] notes enlargement of her primary right breast mass from 2.3cm to 3.8cm. we think she is on kisquali 400mg daily (600mg is standard dose). she is supposed to be on exemestane daily as well. review of med list from [facility] confirms. will raise kisquali to full dose and stop exemestane and start faslodex. Physical Examination PS 3 - lives in [facility], in wheelchair today, cant stand or walk currently. General: Alert and oriented, no acute distress. Eye: Extraocular movements are intact, normal conjunctiva. HENT: Normocephalic, normal hearing. Neck: Supple, non-tender, no jugular venous distention. Cardiovascular: Normal rate, regular rhythm, no murmur, no edema. Gastrointestinal: Soft, non-tender, non-distended, normal bowel sounds, no organomegaly. Respiratory: Clear to auscultation bilaterally, no wheezes, rhonchi or rales. Integumentary: Warm, dry, pink, no pallor, no rash. Psychiatric: Cooperative, appropriate mood & affect. R breast mass very vauge density, not measurable. no axillary adenopathy. Impression and Plan Metastatic breast cancer, Stage IV. ER greatly positive and AK greatly positive. Her2 negative. two bony mets on pet/ct in june 2021. These are not lesions that are very easy to biopsy. She is very hesitant for aggressive therapy or chemotherapy at all. Offered palliative ribociclib and arimidex. Started ribociclib in August 2021. She is tolerating well overall. September 2021 continues to tolerate therapy very well. Will monitor creatinine with routine labs Nov 2021 with excellent response on PET/CT. HELD Kisqali for 3wks in November 2021 d/t renal failure. Renal function back to normal after holding Re-started Kisqali at 200mg daily 3wks on, 1wk off and repeat labs weekly sh (more content not included)... [facility] 06-12-2023 [facility] Discharg e instructions Follow Up Care 06/12/2023 11:56:20 With:Senthil Caldera DO, ONC Address: [facility] [address] [place] [address] [phone] Fax Business (1) When: Unknown With:Senthil Caldera DO, ONC Address: [facility] [address] [place] [address]- [phone] Fax Business (1) When: Unknown Comments:f/u in [address] priorcbc, cmp, [id number] prior to f/u and in 2 months. [facility] 06-12-2023 [facility] Discharg e instructions Patient Education 06/12/2023 [...] high-protein foods. Preparing meals Add whole milk, mtqo-dki-gmoh, or heavy cream to cereal, pudding, soup, [...] potatoes. Grains Pasta. Quick breads. Muffins. Pancakes. Ctbog-wh-ajb cereal. Meats and other proteins Peanut butter. [...] provider. Document Revised: 03/12/2021 Document Reviewed: 03/12/2021 [employer] Patient Education 2022 An[employer]. 06/12/2023 11:25:57 Breast Cancer, Female Breast Cancer, [...] cancer. Follow these instructions at home: Take bsbq-sjo-nvvuymm and prescription medicines only as told by [...] is important. Where to find more information [employer]: www.cancer.org National Cancer [place]: www.cancer.gov Contact a health care provider if: [...] provider. Document Revised: 02/26/2022 Document Reviewed: 02/26/2022 [employer] Patient Education 2022 AnSyn. 06/12/2023 11:25:02 Fall Prevention in the Home, Adult, Wqjg-ii-Vlwr Fall Prevention in the Home, Adult Falls [...] Keep items that you use often in breb-mi-vxobj places. Lower the shelves around your home if needed. Set up your furniture so you have a clear path. Avoid moving your furniture around. Do not have throw rugs or other things on the floor that can make you trip. Avoid walking on wet floors. If any of your floors are uneven, fix them. Add color or contrast paint or tape to clearly audi and help you see: ?Grab bars or [...] of the way. Do not use floor cuban or wax that makes floors slippery. What [...] information Centers for Disease Control and Prevention, MOHINIADI: www.cdc.gov National [place] on Aging: www.derrick.nih.gov Contact a doctor if: [...] provider. Document Revised: 01/08/2022 Document Reviewed: 11/09/2020 [employer] Patient Education 2022 AnSyn. Follow Up Care 05/01/2023 15:02:18 With:Senthil Caldera DO, ONC Address: [facility] [place] [address]- [phone] Fax Business (1) When: Unknown Comments:cbc, cmp, iron studies, b12, foalte, epo [id number] monthly. f/u in 3 months. change arimidex to exemestane 25mg daily. pet/ct prior to f/u.make sure images from pet from may and august are both in our system for review at f/u in august. [facility] 01-30-2023 Hospital Discharg e instructions Follow Up Care 01/30/2023 15:16:04 With:Senthil Caldera Address: [facility] [address] [place] [address] [place] [address]- [phone] Fax Business (1) When: Unknown Comments:f/u in 6 wks. pet/ct in [facility] soon. f/u after. cbc, cmp, iron studies, b12, foalte, epo, [id number] prior to f/u. [facility] 12-23-2022 Evaluation + Plan note [...] When Contact Information Azar HANKS, Rickey Lynn, [facility] [address] [place] [address]- Additional Instructions: Antibiotic Medicine, Adult, Xhnr-ar-Hqdu Extracted from: Title:APSO Note Author:Nathalia LUDWIGZaheer e:12/22/22 [...] to Resource Center Extracted from: Title:APSO Note Author:PiterZaheer caballero DO e:12/21/22 1. UTI (urinary tract infect ion) (N39.0: Urinary tract infection, site not specified) Urine culture positive for E. coli, pansensitive We will continue Keflex as patient tolerated in the past We will continue to monitor for signs of improvement Ordered: Initial Hospital Care/Day Moderate 55 Minutes [id number] Sbsq Hospital Care/Day Straight Fwd 25 Minutes [id number] 2. 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 Age-related cognitive decline (R41.81: Age-related cognitive [...] * Comprehensive Metabolic Panel 11/22/22 [facility]09-03-2023 Hospital Discharge instructions Patient Education 12/23/2022 09:48:15 Antibiotic Medicine, Adult, Kvka-rq-Fcij Antibiotic Medicine, Adult Antibiotic medicines treat infections [...] medicine. Follow these instructions at home: Take duhn-pvc-oztqlyb and prescription medicines as told by your [...] provider. Document Revised: 01/26/2020 Document Reviewed: 01/26/2020 [employer] Patient Education 2022 AnSyn. Follow Up Care 12/20/2022 15:04:36 With:Azar HANKS, Rickey Lynn [facility] Address: [address] [place] [address]- When: Unknown [facility]09-03-2023 NoteAdmission and Discharge Information Admit Date/Time:12/20/2022 16:52 [...] 39.2 % Lymph Auto - 42.1 % Tillman Auto - 13.6 % Eos Auto - 2.5 % Basophil Auto - 2.6 % Neutro Absolute - 1.3 E9/L Lymph Absolute - 1.4 E9/L Tillman Absolute - 0.4 E9/L Eos Absolute - [...] - 111 mg/dL POC Device SN - [id number] POC User ID - [id number] POC Username - JUAN HENNESSY CBC w/ [...] Disposition Discharge To, An (more content not included)...[facility] Comment on above:Result Comment: Electronically Signed By: Zaheer Sloan DO\.br\Date and Time Signed: 12/23/22 09:49 [id number] NotePT evaluation completed with an AMPA score 02/12. Pt currently requires Mod A for bed mobility andMax A x2 for STS transfers. Pt was unable to ambulate and a Max A stand pivot transfer was needed to get from bed to bedside commode. Due to pt's current cognition and functional status, would recommend SNF/ECF.[facility]09-01-2023 NoteCRM entered the room to [...] over the phone. Call to dtr Helen [phone] and she is agreeable to any SNF. ANt franklin TBD. Karolina says they will be able to provide pt's chemo to facility.[facility] on [facility]:Result Comment: Electronically Signed By: Brooklynn Connor.johnnie\Date and Time Signed: 12/21/22 11:15 [id number] NoteBasic Information Admit Date/Time:12/20/2022 16:52 Chief Complaint Pt came in via [facility] for dysuria and weakness. Pt states she was here earlier and has only taken one of the ATBs. History of Present Illness Qhec09-edcm-buw female with past medical history of breast [...] her are currently trying to get into [facility]. They are on a waiting list. [...] as well and was recently admitted to custodial and signed herself out as well as [...] 15:45:00) Lymph Auto: 28.4 % (12/20/22 15:45:00) Tillman Auto: 12.5 % (12/20/22 15:45:00) Eos Auto: 1.3 % (12/20/22 15:45:00) Basophil Auto: 3.5 % High (12/20/22 15:45:00) Neutro Absolute: 2.1 E9/L (12/20/22 15:45:00) Lymph Absolute: 1.1 E9/L (12/20/22 15:45:00) Tillman Absolute: 0.5 E9/L (12/20/22 15:45:00) Eos Absolute: [...] 10.2 pg/mL (12/20/22 18:40:00) (more content not included)...[facility]:Result Comment: Electronically Signed By: Zaheer Sloan DO\.br\Date and Time Signed: 12/20/22 19:18 [id number] Evaluation + Plan noteExtracted from: Title:ED Note Author:Ran HANKS, David Date: 1. Generalized weakness (R53 .1: Weakness) 2. Frequent falls (R29.6: Repeated falls) 3. Anemia (D64.9: Anemia, unspecified) 4. Dehydration (E86.0: Dehydration) 5. Urinary tract infection (N39.0: Urinary tract infection, site not specified) Orders: cephalexin, 500 mg = 1 cap(s), Oral, QID, X 7 day(s), # 28 cap(s), Refills(s) 0, Pharmacy: [facility], 167.6, cm, 12/19/22 20:43:00 EDT, Height/Length [...] * Comprehensive Metabolic Panel 11/22/22 [facility]08-31-2023 Hospital Discharge instructions Patient Education 12/20/2022 00:37:19 Urinary Tract Infection, Adult, Zsmk-yf-Fhja Urinary Tract Infection, Adult A urinary tract [...] Follow these instructions at home: Medicines Take xdff-yms-erjdzkd and prescription medicines only as told by [...] provider. Document Revised: 11/18/2020 Document Reviewed: 11/18/2020 [employer] Patient Education 2022 AnSyn. 12/20/2022 00:37:19 Anemia Anemia Anemia is a [...] spleen. Follow these instructions at home: Take rkvk-gpb-waktxzc and prescription medicines only as told by [...] provider. Document Revised: 02/20/2022 Document Reviewed: 03/15/2020 [employer] Patient Education 2022 AnSyn. 12/20/2022 00:37:19 Dehydration, Adult, Uiar-wv-Exjy Dehydration, Adult Dehydration is condition in which [...] of fat or sugar. General instructions Take ethk-vqc-bolbfga and prescription medicines only as told by [...] start slowly drinking other clear fluids. Take enpa-boq-qdllxbr and prescription medicines only as told by your doctor. Get help right away if you have any symptoms of very bad dehydration. This information is not intended to replace advice given to you by your health care provider. Make sure you discuss any questions you have with your health care provider. Document Revised: 11/19/2019 Document Reviewed: 11/19/2019 [employer] Patient Education 2022 AnSyn. Follow Up Care 12/19/2022 20:39:35 With:Rickey Askew Address: [place] [address] Business (1) When:12/21/2022 [facility]08-28-2023 Hospital Discharge instructions Patient Education [...] Follow these instructions at home: Medicines Take lawg-gpb-khqpmog and prescription medicines only as told by [...] as fried or sweet foods. ?Take an pxtm-mds-bgfohks or prescription medicine for constipation. If you [...] provider. Document Revised: 02/05/2022 Document Reviewed: 02/05/2022 [employer] Patient Education 2022 AnSyn. Follow Up Care 12/17/2022 10:20:15 With:JOSÉ ANTONIO VARGAS Address: [address] [place] [phone] Business (1) When:12/20/2022 12:53:13 With:Gavino Lugo Address: [address] [place] [address]- Business (1) When:12/20/2022 12:52:03 With:Rickey Askew Address: [address] [place] [address]- Business (1) When:12/20/2022 12:51:59 [facility]08-28-2023 Evaluation + Plan noteExtracted from: Title:ED Note Author:Gui Scruggs PA-C te:12/17/22 Fall (W19.XXXA: Unspecified fall, initial encounter) Lumbar compression fracture (S32.000A: Wedge compression fracture of unspecified lumbar vertebra, initial encounter for closed fracture) Ordered: oxycodone, 5 mg = 1 tab(s), Oral, q6hr, X 3 day(s), # 15 tab(s), Refills(s) 0, Pharmacy: [facility], 168, cm, 12/17/22 10:29:00 EDT, Height/Length [...] * Comprehensive Metabolic Panel 11/22/22 [facility]07-18-2023 NoteHOSPITAL REGULATIONS: All Positive and Important Negative [...] THROUGH Gavino Lugo D.O. ls Dictated: 11/02/2022 [id number] Transcribed: 11/02/2022 cc:Rickey Askew M.D.[facility] CenterComment on above:Result Comment: Electronically Signed By: Gavino Lugo DO\.br\Date and Time Signed: 11/06/22 07:17 [id number] NoteHOSPITAL REGULATIONS: All Positive and Important Negative [...] going to rehabilitation. Her friend from the [facility], which is her old neighbor, was in [...] Nursing staff as well as friend from [place] is present. She has bruising to the [...] of infection. Social Service for rehabilitation placement [facility]. Orthopedics to sign off with follow up in the office in 4 weeks for a repeat x-ray examination of the pelvis. She voiced a verbal understanding and her friend from [place] is present. Ivett Palacio Dictated: 11/05/2022 [id number] Transcribed: 11/05/2022 cc:Rickey Askew M.D.[facility] CenterComment on above:Result Comment: Electronically Signed By: Gavino Lugo DO\.br\Date and Time Signed: 11/06/22 07:17 [id number] Hospital Discharge instructions Patient Education 11/04/2022 12:28:31 [...] Consider working with a physical therapist or application trainer who can develop an exercise plan to help you gain muscle strength. General instructions Take xqfm-adv-wjnejxg and prescription medicines only as told by [...] provider. Document Revised: 03/11/2022 Document Reviewed: 03/11/2022 Yo que Vos Patient Education 2022 [employer]. Follow Up Care 11/01/2022 19:54:24 With:Hollis MERRILL Address: [address] [facility] [address] [place] [address] Business (1) When: Unknown Comments:Urinary retnetion w/dooley With:Gavino Lugo Address: [address] [place] [address] Business (1) When: Unknown Comments:Call for followup appointment in 4 weeks for repeat pelvis xray With:Rickey Askew Address: [address] [place] [phone] Business (1) When: Unknown [facility]07-16-2023 Evaluation + Plan noteExtracted from: Title:Discharge Note Author:Trevor HANKS, Wyatt Lynn ate:11/04/22 Stable Discharge To, Anticipated II - [facility] Unit Discharged to - senior living unit Discharge Diet(s): Regular (11/02/22 15:25:00) Prescriptions anastrozole 1 mg Tab, 1 mg= 1 tab(s), Oral, Daily, 11 refills Arimidex 1 mg Tab, 1 mg= 1 tab(s), Oral, Daily, 3 refills ergocalciferol 50,000 intl units Cap, 39002 International_Unit= 1 cap(s), Oral, q7day Kisqali (200 [...] With When Contact Information Gavino Lugo [address] [place], [place] [address] (1) Additional Instructions: Call for followup appointment in 4 weeks for repeat pelvis xray Rickey Askew In [address] [place] [address]- [place] (1) Additional Instructions: Addendum by Trevor HANKS, 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) SCD, enoxaparin Orders: acetaminophen, [...] * Comprehensive Metabolic Panel 11/22/22 [facility]07-16-2023 NoteAdmission and Discharge Information Admitting Physician - [...] 65.9 % Lymph Auto - 24.6 % Tillman Auto - 5.0 % Eos Auto - 3.3 % Basophil Auto - 1.2 % Neutro Absolute - 4.4 E9/L Lymph Absolute - 1.6 E9/L Tillman Absolute - 0.3 E9/L Eos Absolute - [...] Discharge Disposition Discharge To, Anticipated II - [facility] Unit Discharged to - senior living unit Discharge Diet Discharge Diet(s): Regular (11/02/22 15:25:00) Discharge Medication List Prescriptions anastrozole 1 mg Tab (more content not included)...[facility] Comment on above:Result Comment: Electronically Signed By: Trevor HANKS, Wyatt\.br\Date and Time Signed: 11/04/22 12:37 [id number] NotePT Evaluation done this date. Pt. with 12/13 on AM-PAC this date. She is very resistant to movement due to pain. She is unable to stand even with attempts of max A. Will benefit from SNF.[facility]07-14-2023 NoteChief Complaint pt to ED via [facility] with c/o chest bruise from fall earlier today. c/o increasing weakness. denies thinners or hitting head with earlier fall. denies PMH. hx of DM. pt A&Ox4 upon ED arrival, applied to desk monitor. History of Present Illness Patient is a [...] psychiatric thoughts. Lab Results WBC: 6.6 E9/L (11/01/22::00) RBC: 3.7 E12/L Low (11/01/22::00) HGB: 12.1 gm/dL (11/01/22::00) Hct: 36.5 % (11/01/22::00) MCV: 99.3 fL (11/01/22::00) MCH: 32.9 pg (11/01/22::00) MCHC: 33.1 gm/dL (11/01/22::00) RDW: 16.3 % High (11/01/22::00) Platelet: 229 E9/L (11/01/22::00) MPV: 7.3 fL (11/01/22::00) Neutro Auto: 65.9 % (11/01/22::00) Lymph Auto: 24.6 % (11/01/22::00) Tillman Auto: 5 % (11/01/22::00) Eos Auto: 3.3 % (11/01/22::) Basophil Auto: 1.2 % (11/01/22::00) Neutro Absolute: 4.4 E9/L (11/01/22::00) Lymph Absolute: 1.6 E9/L (11/01/22::00) Tillman Absolute: 0.3 E9/L (11/01/22::00) Eos Absolute: 0.2 E9/L (11/01/22::00) Basophil Absolute: 0.1 E9/L (11/01/22::00) Glucose Lvl: 130 mg/dL (11/01/22::00) BUN: 26 mg/dL High (11/01/22::00) Creatinine: 1.3 mg/dL (11/01/22::00) eGFR: 43 mL/min/1.73 m2 Low (11/01/22::00) BUN/Creat Ratio: 20 (11/01/22 22:01:00) Sodium Lvl: 138 mmol/L (11/01/22::00) Potassium Lvl: 4.2 mmol/L (11/01/22 22::00) Chloride: 105 mmol/L (11/01/22 22:01:00) CO2: 22 mmol/L (11/01/22::00) AGAP: 15 mEq/L (11/01/22::00) Calcium Lvl: 9.1 mg/dL (11/01/22 22::00) Alk Phos: 110 Int._Unit/L High (11/01/22::00) ALT: 13 Int._Unit/L (11/01/22::00) AST: 20 Int._Unit/L (11/01/22::00) Total Protein: 6.9 gm/dL (11/01/22::00) Albumin Lvl: 3.5 gm/dL (11/01/22::00) Globulin: 3.4 gm/dL (11/01/22 22::00) A/G Ratio: 1 Low (11/01/22::00) Bili Total: 0.9 mg/dL (11/01/22::00) Bili Direct: 0.2 mg/dL (11/01/22::00) Bili Indirect: 0.7 mg/dL (11/01/22::00) Troponin: 7.5 pg/mL Low (11/01/22:01:00) UA Spec Desc: Clean Catch (11/01/22:20:00) UA Color: Yellow2 (11/01/22 23:20:00) UA Clarity: SL CLOUDY (11/01/22:20:00) UA Spec Grav: 1.025 (11/01/22:20:00) UA pH: 6.0 (11/01/22 23:20:00) UA Protein: 1+ Abnormal (11/01/22 23:20:00) UA Glucose: NEGATIVE1 (07/13/23 23:20:00) UA Ketones: Trace2 (11/01/22 23:20:00) UA [...] medications once reconciled. Hydralazine (more content not included)...[facility] CenterComment on above:Result Comment: Electronically Signed By: Mariia LOPEZ DO\Date and Time Signed: 11/02/22 01:35 [id number] Hospital Discharge instructions Follow Up Care 09/27/2022 14:06:46 With:Senthil Caldera Address: [address] [place] [phone] Fax Business (1) When: Unknown Comments:f/u in 3 months. pet/ct prior to f/u. cont arimidex and kisquali. cbc, cmp and [id number] monthly. [facility]02-15-2023 Hospital Discharge instructions Follow Up Care 06/06/2022 13:40:28 With:Senthil Caldera Address: [address] [phone] Fax Business (1) When: Unknown Comments:cbc, cmp, [id number] in 4 weeks and prior to f/u in 8 weeks. f/u with manager office. iron studies, b12, folate with next labs. [facility]12-07-2022 Hospital Discharge instructions Follow Up Care 03/28/2022 14:49:31 With:Senthil Caldera Address: [address] [phone] Fax Business (1) When: Unknown Comments:f/u in 2 months. pet/ct prior to f/ucbc, cmp, [id number], every 6 weeks. [facility]09-29-2022 Hospital Discharge instructions Follow Up Care 01/18/2022 14:52:57 With:Senthil Caldera Address: [address] [phone] Fax Business (1) When: Unknown Comments:raise kisquali to 400mg for 3wks on and 1 week off. f/u with or anthony in 2 months. cbc, cmp, [id number] prior to f/ucbc, cmp monthly onthis medicaztion cont arimidex. [facility]09-01-2022 Hospital Discharge instructions Follow Up Care 12/21/2021 14:19:38 With:Senthil Caldera Address: [address] [phone] Fax Business (1) When: Unknown Comments:continue Kisqali 200mg 3wks on, 1wk offcbc, cmp in 4wks and 8wksPET scan in Novfollow-up in 8wks with Dr. Hernandez after PET scan [facility]08-11-2022 Hospital Discharge instructions Follow Up Care 11/30/2021 13:55:25 With:Senthil Caldera Address: [address] [place] [phone] Fax Business (1) When: Unknown Comments:re-start kisqali at 200mg daily x 3 weeks, then 1 week offcmp weekly x 4wksfollow-up with Dr. Hernandez in 4wkscbc, cmp at follow-up [facility]07-14-2022 Hospital Discharge instructions Follow Up Care 11/02/2021 12:27:30 With:Senthil Caldera Address[address] [phone] Fax Business (1) When: Unknown Comments:cont arimidex. Hold kisquali for 3 wks, recheck cbc, cmp, prior to f/u. hold lasix. Send this note to Dr. Kofi sumner. [facility]06-16-2022 Hospital Discharge instructions Follow Up Care 10/05/2021 14:21:47 With:Senthil Caldera Address: [address] [phone] Fax Business (1) When: Unknown Comments:continue kisqalifollow-up in 1mocbc, cmp at follow-up [facility]05-19-2022 Hospital Discharge instructions Follow Up Care 09/07/2021 13:41:37 With:Senthil Caldera Address: [address] [phone] Fax Business (1) When: Unknown Comments:continue Kisqali follow-up in 1 mocbc, cmp, [id number] at follow-up [facility]05-15-2022 Evaluation + Plan noteExtracted from: [...] Type:ONC Office Visit 15 (FT) [facility]05-15-2022 Hospital Discharge instructions Patient Education [...] instructions at home: Medicines Take and apply lywx-dti-grjngua and prescription medicines only as told by [...] what causes your hives. Take and apply fcxf-itu-fsjswni and prescription medicines only as told by your health care provider. Keep all follow-up visits as told by your health care provider. This is important. This information is not intended to replace advice given to you by your health care provider. Make sure you discuss any questions you have with your health care provider. Document Released: 04/08/2006 Document Revised: 10/22/2018 Document Reviewed: 10/22/2018 Yo que Vos Patient Education NavigatorMD. Follow Up Care 09/03/2021 00:14:38 With:Rickey Askew Address: [address] [place] [phone] Business (1) When:Within 3 Day(s) [facility]04-21-2022 Hospital Discharge instructions Follow Up Care 08/10/2021 13:38:09 With:Nohemi Garcia Address: [address] [phone] Business (1) When: Unknown Comments:f/u 1 monthcont ivette.cbc, cmp, [id number] at f/u. With:Senthil Caldera Address: [address] [phone] Fax Business (1) When: Unknown [facility]04-05-2022 Hospital Discharge instructions Follow Up Care 07/25/2021 15:46:11 With:Senthil Caldera Address: [address] [phone] Fax Business (1) When: Unknown Comments:f/u in 2 wks, cbc, cmp, [id number] at f/u. [facility]03-22-2022 Hospital Discharge instructions Follow Up Care 07/11/2021 14:05:16 With:Senthil Caldera Address: [facility] [place] [address]- [phone] Fax Business (1) When: Unknown Comments:echo and port sooni will call Dr. Tabor. f/u with me in 2 wks plan AC. Cbc, cmp, ceapet/ct prior to f/u. [facility] note Future Appointments Appointment Date:07/18/2021 12:00:00 PM Scheduled Provider:Senthil Caldera DO [facility] Type:ONC Office Visit New 45 (FT) [facility] General Surgery Range Evaluation + Plan note Future Appointments Appointment Date:08/08/2021 10:00:00 AM Scheduled Provider: Location:.[facility] Appointment Type:US Breast (FT) Appointment Date:08/09/2021 10:30:00 AM Scheduled Provider: Location:[facility] Appointment Type:Surgical PAT FT Appointment Date:08/10/2021 12:30:00 PM Scheduled Provider:Senthil Caldera DO [facility] Type:ONC Office Visit 15 (FT) Appointment Date:08/17/2021 08:00:00 AM Scheduled Provider: Location:[facility] Appointment Type:Surgery FT Appointment [...] Perc Biopsy Lymph Node 08/08/21 [facility] Future Appointments Appointment Date:08/10/2021 12:30:00 PM Scheduled Provider:Senthil Caldera DO Location:.ONCOLOGY Appointment Type:ONC Office Visit 15 (FT) Diagnostic Tests Pending * CA 27 29 08/07/21 Future Scheduled Tests Laboratory* CBC w/ Auto Diff 07/26/21 * CEA 07/26/21 * Comprehensive Metabolic Panel 07/26/21 [facility] Future Appointments Appointment Date:08/10/2021 12:30:00 PM Scheduled Provider:Senthil Caldera DO Location:FT.ONCOLOGY Appointment Type:ONC Office Visit 15 (FT) Future Scheduled Tests Laboratory* CBC w/ Auto Diff 07/26/21 * CEA 07/26/21 * Comprehensive Metabolic Panel 07/26/21 [facility] note Future Appointments Appointment Date:09/07/2021 12:30:00 PM Scheduled Provider:Senthil Caldera DO Location:.ONCOLOGY Appointment Type:ONC Office Visit 15 (FT) Future Scheduled Tests Laboratory* CBC w/ Auto Diff 08/24/21 * CEA 08/24/21 * Comprehensive Metabolic Panel 08/24/21 [facility] Future Appointments Appointment Date:08/21/2021 02:00:00 PM Scheduled Provider: Location:.ONCOLOGY Appointment Type:ONC Patient Education - 1hr (FT) Appointment Date:09/07/2021 12:30:00 PM Scheduled Provider:Senthil Caldera DO Location:.ONCOLOGY Appointment Type:ONC Office Visit 15 (FT) Future Scheduled Tests Laboratory* CBC w/ Auto Diff 09/07/21 * CEA 09/07/21 * Comprehensive Metabolic Panel 09/07/21 [facility] Future Appointments Appointment Date:09/07/2021 12:30:00 PM Scheduled Provider:Senthil Caldera DO Location:FT.ONCOLOGY Appointment Type:ONC Office Visit 15 (FT) [facility] Future Appointments Appointment Date:10/05/2021 01:30:00 PM Scheduled Provider:Senthil Caldera DO Location:.ONCOLOGY Appointment Type:ONC Office Visit 15 (FT) Future Scheduled Tests Laboratory* CA 27 29 10/08/21 * CBC w/ Auto Diff 10/08/21 * Comprehensive Metabolic Panel 10/08/21 [facility] Future Appointments Appointment Date:10/05/2021 01:30:00 PM Scheduled Provider:Senthil Caldera DO Location:FT.ONCOLOGY Appointment Type:ONC Office Visit 15 (FT) Diagnostic Tests Pending * CA 27 29 10/02/21 [facility] Future Appointments Appointment Date:11/02/2021 01:45:00 PM Scheduled Provider:Senthil Caldera DO Location:FT.ONCOLOGY Appointment Type:ONC Office Visit 15 (FT) Future Scheduled Tests Laboratory* CA 27 29 11/02/21 * CBC w/ Auto Diff 11/02/21 * Comprehensive Metabolic Panel 11/02/21 [facility] Future Appointments Appointment Date:11/02/2021 11:15:00 AM Scheduled Provider:Nohemi Garland Location:FT.ONCOLOGY Appointment Type:ONC Office Visit 15 (FT) Diagnostic Tests Pending * CA 27 29 11/01/21 [facility] Future Appointments Appointment Date:11/30/2021 01:15:00 PM Scheduled Provider:Senthil Caldera DO Location:FT.ONCOLOGY Appointment Type:ONC Office Visit 15 (FT) Future Scheduled Tests Laboratory* CBC w/ Auto Diff 12/03/21 * Comprehensive Metabolic Panel 12/03/21 [facility] note Future Appointments Appointment Date:11/30/2021 01:15:00 PM Scheduled Provider:Senthil Caldera DO Location:FT.ONCOLOGY Appointment Type:ONC Office Visit 15 (FT) [facility] Future Appointments Appointment Date:12/21/2021 01:15:00 PM Scheduled Provider:Senthil Caldera DO Location:FT.ONCOLOGY Appointment Type:ONC Office Visit 15 (FT) Future Scheduled Tests Laboratory* CBC w/ Auto Diff 12/21/21 * Comprehensive Metabolic Panel 12/21/21 [facility] Future Appointments [...] * Comprehensive Metabolic Panel 01/25/22 [facility] Future Appointments Appointment Date:01/18/2022 02:15:00 PM Scheduled Provider:Senthil Caldera DO Location:FTONCOLOGY Appointment Type:ONC Office Visit 15 (FT) Future Scheduled Tests Laboratory* CBC w/ Auto Diff 01/04/22 * CBC w/ Auto Diff 01/11/22 * CBC w/ Auto Diff 01/18/22 * CBC w/ Auto Diff 01/25/22 * Comprehensive Metabolic Panel 01/04/22 * Comprehensive Metabolic Panel 01/11/22 * Comprehensive Metabolic Panel 01/18/22 * Comprehensive Metabolic Panel 01/25/22 [facility] Future Appointments Appointment Date:03/28/2022 02:15:00 PM Scheduled Provider:Senthil Caldera DO Location:FTONCOLOGY Appointment Type:ONC Office Visit 15 (FT) Future Scheduled Tests Laboratory* CBC w/ Auto Diff 01/23/22 * CBC w/ Auto Diff 01/30/22 * CBC w/ Auto Diff 02/06/22 * CBC w/ Auto Diff 02/13/22 * Comprehensive Metabolic Panel 01/23/22 * Comprehensive Metabolic Panel 01/30/22 * Comprehensive Metabolic Panel 02/06/22 * Comprehensive Metabolic Panel 02/13/22 [facility] Future Appointments Appointment Date:03/28/2022 02:15:00 PM Scheduled Provider:Senthil Caldera DO [facility] Type:ONC Office Visit 15 (FT) Future Scheduled Tests Laboratory* CBC w/ Auto Diff 03/08/22 * CBC w/ Auto Diff 04/05/22 * Comprehensive Metabolic Panel 03/08/22 * Comprehensive Metabolic Panel 04/05/22 [facility] Future Appointments Appointment Date:06/06/2022 01:15:00 PM Scheduled Provider:Senthil Caldera DO Location:FT.ONCOLOGY Appointment Type:ONC Office Visit 15 (FT) [facility] Future Appointments Appointment Date:08/01/2022 02:00:00 PM Scheduled Provider:Senthil Caldera DO Location:.ONCOLOGY Appointment Type:ONC Office Visit 15 (FT) Future Scheduled Tests Laboratory* CBC w/ Auto Diff 06/06/22 * Comprehensive Metabolic Panel 06/06/22 [facility] Future Appointments Appointment Date:08/01/2022 02:00:00 PM Scheduled Provider:Senthil Caldera DO Location:.ONCOLOGY Appointment Type:ONC Office Visit 15 (FT) Diagnostic Tests Pending * CA 27 29 07/09/22 Future Scheduled Tests Laboratory* CA 27 29 07/31/22 * CBC w/ Auto Diff 07/31/22 * Comprehensive Metabolic Panel 07/31/22 [facility] Future Appointments Appointment Date:08/01/2022 02:00:00 PM Scheduled Provider:Senthil Caldera DO Location:.ONCOLOGY Appointment Type:ONC Office Visit 15 (FT) Diagnostic Tests Pending * CA 27 29 07/30/22 [facility] note Future Appointments [...] * Vitamin B12 Level 08/29/22 [facility] Future Appointments Appointment Date:09/27/2022 01:45:00 PM Scheduled Provider:Nohemi Garland Location:FT.ONCOLOGY Appointment Type:ONC Office Visit 30 (FT) Diagnostic Tests Pending * CA 27 29 09/25/22 [facility] Future Appointments Appointment Date:11/22/2022 02:15:00 PM Scheduled Provider:Senthil Caldera DO Location:FT.ONCOLOGY Appointment Type:ONC Office Visit 15 (FT) Future Scheduled Tests Laboratory* CA 27 29 10/25/22 * CA 27 29 11/22/22 * CBC w/ Auto Diff 10/25/22 * CBC w/ Auto Diff 11/22/22 * Comprehensive Metabolic Panel 10/25/22 * Comprehensive Metabolic Panel 11/22/22 [facility] Future Appointments Appointment Date:12/26/2022 02:45:00 PM Scheduled Provider:Senthil Caldera DO Location:FT.ONCOLOGY Appointment Type:ONC Office Visit 15 (FT) Future Scheduled Tests Laboratory* CA 27 29 10/25/22 * CA 27 29 11/22/22 * CBC w/ Auto Diff 10/25/22 * CBC w/ Auto Diff 11/22/22 * Comprehensive Metabolic Panel 10/25/22 * Comprehensive Metabolic Panel 11/22/22 [facility] Evaluation + Plan note Future Appointments Appointment [...] * Comprehensive Metabolic Panel 05/02/23 [facility] Future Appointments [...] * Comprehensive Metabolic Panel 05/02/23 [facility] note Future Appointments [...] Transferrin 09/12/23 * Vitamin B12 Level 09/12/23 [facility] Future Appointments Appointment Date:01/09/2024 [...] Panel 12/26/23 * CA 27 29 12/26/23 [facility] note Future Appointments Appointment Date:05/13/2024 02:40:00 PM Scheduled Provider:Senthil Caldera DO Location:FT.ONCOLOGY Appointment Type:ONC Office Visit 20 (FT) Diagnostic Tests Pending * CBC w/ Auto Diff 02/08/24 * Comprehensive Metabolic Panel 02/08/24 * Ferritin 05/10/24 * Iron Level 05/10/24 * Iron Percent Saturation 05/10/24 * Transferrin 05/10/24 * Vitamin B12 Level 05/10/24 * Folate Level 05/10/24 * Erythropoietin Level 05/10/24 [facility] evaluation + Plan note Future Appointments Appointment Date:02/25/2024 02:30:00 PM Scheduled Provider: Location:.ONCOLOGY Appointment Type:ONC Injection (FT) Appointment Date:03/10/2024 02:00:00 PM Scheduled Provider: Location:.ONCOLOGY Appointment Type:ONC Injection (FT) Appointment Date:05/13/2024 02:40:00 PM Scheduled Provider:Senthil Caldera DO Location:.ONCOLOGY Appointment Type:ONC Office Visit 20 (FT) [facility] evaluation + Plan note Future Appointments Appointment Date:03/10/2024 02:00:00 PM Scheduled Provider: Location:.ONCOLOGY Appointment Type:ONC Injection (FT) Appointment Date:05/13/2024 02:40:00 PM Scheduled Provider:Senthil Caldera DO Location:FT.ONCOLOGY Appointment Type:ONC Office Visit 20 (FT) [facility] Evaluation + Plan note Future Appointments Appointment Date:04/07/2024 02:00:00 PM Scheduled Provider: Location:.ONCOLOGY Appointment Type:ONC Injection (FT) Appointment Date:05/13/2024 02:40:00 PM Scheduled Provider:Senthil Caldera DO Location:.ONCOLOGY Appointment Type:ONC Office Visit 20 (FT) [facility] evaluation + Plan note Future Appointments Appointment Date:05/05/2024 02:00:00 PM Scheduled Provider: Location:.ONCOLOGY Appointment Type:ONC Injection (FT) Appointment Date:05/13/2024 02:40:00 PM Scheduled Provider:Senthil Caldera DO Location:FT.ONCOLOGY Appointment Type:ONC Office Visit 20 (FT) [facility] Evaluation + Plan note Future Appointments Appointment Date:05/13/2024 02:40:00 PM Scheduled Provider:Senthil Caldera DO Location:.ONCOLOGY Appointment Type:ONC Office Visit 20 (FT) Appointment Date:06/02/2024 02:45:00 PM Scheduled Provider: Location:FT.ONCOLOGY Appointment Type:ONC Injection (FT) Appointment Date:06/30/2024 03:00:00 PM Scheduled Provider: Location:.ONCOLOGY Appointment Type:ONC Injection (FT) Appointment Date:07/28/2024 03:00:00 PM Scheduled Provider: Location:.ONCOLOGY Appointment Type:ONC Injection (FT) [facility] evaluation + Plan note Future Appointments Appointment Date:06/02/2024 02:45:00 PM Scheduled Provider: Location:.ONCOLOGY Appointment Type:ONC Injection (FT) Appointment Date:06/30/2024 03:00:00 PM Scheduled Provider: Location:.ONCOLOGY Appointment Type:ONC Injection (FT) Appointment Date:07/28/2024 03:00:00 PM Scheduled Provider: Location:.ONCOLOGY Appointment Type:ONC Injection (FT) Diagnostic Tests Pending * CBC w/ Auto Diff 09/09/24 * Comprehensive Metabolic Panel 09/09/24 * Ferritin 09/09/24 * Iron Level 09/09/24 * Iron Percent Saturation 09/09/24 * Transferrin 09/09/24 [facility] Evaluation + Plan note Future Appointments Appointment Date:06/30/2024 03:00:00 PM Scheduled Provider: Location:.ONCOLOGY Appointment Type:ONC Injection (FT) Appointment Date:07/28/2024 03:00:00 PM Scheduled Provider: Location:.ONCOLOGY Appointment Type:ONC Injection (FT) Appointment Date:09/09/2024 02:40:00 PM Scheduled Provider:Senthil Caldera DO Location:.ONCOLOGY Appointment Type:ONC Office Visit 20 (FT) [facility] Evaluation + Plan note Future Appointments Appointment Date:07/28/2024 03:00:00 PM Scheduled Provider: Location:FT.ONCOLOGY Appointment Type:ONC Injection (FT) Appointment Date:09/09/2024 02:40:00 PM Scheduled Provider:Senthil Caldera DO Location:FT.ONCOLOGY Appointment Type:ONC Office Visit 20 (FT) [facility] Evaluation + Plan note Future Appointments Appointment Date:08/25/2024 03:00:00 PM Scheduled Provider: Location:FT.ONCOLOGY Appointment Type:ONC Injection (FT) Appointment Date:09/09/2024 02:40:00 PM Scheduled Provider:Senthil Caldera DO Location:FT.ONCOLOGY Appointment Type:ONC Office Visit 20 (FT) [facility] Evaluation + Plan note Future Appointments Appointment Date:09/09/2024 02:40:00 PM Scheduled Provider:Senthil Caldera DO Location:FT.ONCOLOGY Appointment Type:ONC Office Visit 20 (FT) Appointment Date:09/22/2024 02:00:00 PM Scheduled Provider: Location:FT.ONCOLOGY Appointment Type:ONC Injection (FT) Appointment Date:10/20/2024 02:00:00 PM Scheduled Provider: Location:FT.ONCOLOGY Appointment Type:ONC Injection (FT) Appointment Date:11/17/2024 02:00:00 PM Scheduled Provider: Location:.ONCOLOGY Appointment Type:ONC Injection (FT) Appointment Date:12/15/2024 02:30:00 PM Scheduled Provider: Location:FT.ONCOLOGY Appointment Type:ONC Injection (FT) [facility] Evaluation + Plan note Future Appointments Appointment Date:09/22/2024 02:00:00 PM Scheduled Provider: Location:FT.ONCOLOGY Appointment Type:ONC Injection (FT) Appointment Date:10/20/2024 02:00:00 PM Scheduled Provider: Location:FT.ONCOLOGY Appointment Type:ONC Injection (FT) Appointment Date:11/17/2024 02:00:00 PM Scheduled Provider: Location:FT.ONCOLOGY Appointment Type:ONC Injection (FT) Appointment Date:12/15/2024 02:30:00 PM Scheduled Provider: Location:FT.ONCOLOGY Appointment Type:ONC Injection (FT) Appointment Date:03/10/2025 02:00:00 PM Scheduled Provider:Senthil Caldera DO Location:.ONCOLOGY Appointment Type:ONC Office Visit 20 (FT) Diagnostic Tests Pending * CBC w/ Auto Diff 12/10/24 * Comprehensive Metabolic Panel 12/10/24 * CEA 12/10/24 * CA 27 29 12/10/24 * CBC w/ Auto Diff 02/24/25 * Comprehensive Metabolic Panel 02/24/25 * CEA 02/24/25 * CA 27 29 02/24/25 [facility] evaluation + Plan note Future Appointments Appointment Date:10/20/2024 02:00:00 PM Scheduled Provider: Location:FT.ONCOLOGY Appointment Type:ONC Injection (FT) Appointment Date:11/17/2024 02:00:00 PM Scheduled Provider: Location:.ONCOLOGY Appointment Type:ONC Injection (FT) Appointment Date:12/15/2024 02:30:00 PM Scheduled Provider: Location:FT.ONCOLOGY Appointment Type:ONC Injection (FT) Appointment Date:03/10/2025 02:00:00 PM Scheduled Provider:Senthil Caldera DO Location:FT.ONCOLOGY Appointment Type:ONC Office Visit 20 (FT) [facility] Evaluation + Plan note Future Appointments Appointment Date:11/17/2024 02:00:00 PM Scheduled Provider: Location:FT.ONCOLOGY Appointment Type:ONC Injection (FT) Appointment Date:12/15/2024 02:30:00 PM Scheduled Provider: Location:.ONCOLOGY Appointment Type:ONC Injection (FT) Appointment Date:03/10/2025 02:00:00 PM Scheduled Provider:Senthil Caldera DO Location:FT.ONCOLOGY Appointment Type:ONC Office Visit 20 (FT) [facility] evaluation noteNo assessment information available [facility] Work Phone: Hospital course Narrative No data available for this section [facility] Discharge instructions No data available for this section [facility] General Surgery Mikhail Progress note No data available for this section [facility] Summary Purpose Family History No [...] History Records FoundNo Family History Records Found No data available [...] Complaint C50.41 C79.51 Chief Complaint c50.411 c79.51 Chief Complaint C51.411 C79.51 Chief Complaint Admit Date c50.411 c79.51 April 29, 2024 9: 51am Chief Complaint Admit Date c50.411 c79.51 August 17, 2024 11: 33am Chief Complaint Admit Date c50.411 c79.51 August 17, 2024 11: 33am C50.411 C79.51 September 30, 2024 7:24 am Additional Source Comments INFORMATION SOURCE (unrecogn ized section and content) DATE CREATED AUTHOR 09/08/2021 [facility] DATE CREATED AUTHOR AUTHOR'S ORGANIZ ATION 09/14/2023 [facility] DATE CREATED AUTHOR AUTHOR'S ORGANIZ ATION 09/15/2023 [facility] DATE CREATED AUTHOR AUTHOR'S ORGANIZ ATION 10/05/2023 [facility] DATE CREATED AUTHOR AUTHOR'S ORGANIZ ATION 01/15/2024 Choco Foard [facility] DATE CREATED AUTHOR AUTHOR'S ORGANIZ ATION 11/02/2024 [facility] DATE CREATED AUTHOR AUTHOR'S ORGANIZ ATION 12/17/2024 Choco Doe [facility] Care Team (unrecognized sect ion and content) 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 Start Date End Date Rickey Askew MD [address] [place] [address] PCP - Devoted 06/20/22 Rickey Askew MD [address] [place] [address] PCP - General Family Medicine 09/19/22 Team Status: Active Member Role Status Scott Rodriguez MD Primary Care Provider Active Team Status: Inactive Member Role Status Dates Senthil Caldera II, DO Attending Provider Active Start: May 31, 2023 End: May 31, 2023 Mary Rodriguez MD Primary Care Provider Active S tart: May 31, 2023 End: May 31, 2023 Team Status: Inactive Member Role Status Scott Rodriguez MD Primary Care Provider Active S tart: August 30, 2023 End: August 30, 2023 Senthil Caldera II, DO Attending Provider Active Start: August 30, 2023 End: August 30, 2023 Team Status: Inactive Member Role Status Scott Rodriguez MD Primary Care Provider Active S tart: December 30, 2023 End: December 30, 2023 Senthil Caldera [facility] DO Attending Provider Activ e Start: December 30, 2023 End: December 30, 2023 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 Start Date End Date Rickey Askew MD [address] [place] [address] PCP - Devoted 06/20/22 Unallocated, [place] [address] PCP - General Family Medicine 08/14/23 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 Start Date End Date UnallocatedIliana [place] [address] PCP - General Family Medicine 08/14/23 Team Status: Inactive Member Role Status Dates Mary Rodriguez MD Primary Care Provider Active S tart: April 29, 2024 End: April 29, 2024 Senthil Caldera [facility] , DO Attending Provider Activ e Start: April 29, 2024 End: April 29, 2024 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 Start Date End Date Unallocated, MD [place] [address] PCP - General Family Medicine 08/14/23 Team Status: Inactive Member Role Status Dates Mary Rodriguez MD Primary Care Provider Active S tart: August 17, 2024 End: August 17, 2024 [facility] Attending Provider Activ e Start: August 17, 2024 End: August 17, 2024 Team Status: Inactive Member Role Status Dates Mary Rodriguez MD Primary Care Provider Active S tart: September 30, 2024 End: September 30, 2024 [facility] Attending Provider Activ e Start: September 30, 2024 End: September 30, 2024 Goals (unrecognized section and content) Goals may [...] BE BASED ON THE PRIMARY CLINICAL RECORDS. [employer] [facility]. provides no warranty or guarantee of the accuracy or completeness of information in this document.
[2025-01-27 12:29] LABS: Potassium 4.9 mmol/L (3.5-5.1)
== END 2025-01-27 11:59 | disposition home or self-care (01) ==
LOC: LAB 11:58
PROVIDERS: PCP Family Medicine; Visit Provider Family Medicine
DX: E87.5 Hyperkalemia (principal)
CPT/HCPCS: 36415; 84132

== ENCOUNTER 2025-02-24 06:51 | Outpatient (REF) | payer MEDICARE, MEDICAID, SELFPAY ==
--- OUTSIDE RECORDS SUMMARY | 2023-10-16 09:15 | XMS_ITS ---
Author Organization [facility] Address [address] [place] [address] [place] [address] Care Team Providers Care Health Facilities Surveyor Name Role Phone Mary Rodriguez Primary Care Provider UnavailGerardo Saunders Unavailable [phone] Encounters Encounter Location Date Provider Diagnosis [address] [address] 10/16/2023 Gerardo Sosa Plan Of Treatment No Information Progress Notes * Florina HERNANDEZDOB: 0 (74 yo F)Acc No.[id number]:10/16/2023 Patient:?Florina HERNANDEZ :?TOLU KeithMDOB:1950???Age:73 Y???Sex: FemaleDate:10/16/2023hone:[phone]:[id number]:Mary Rodriguez Subjective: * Chief Complaints: * * Medical History: Objective: * Vitals: Assessment: Plan: * Treatment: * Images: * Electronic signature of Gerardo Sosa DPM on 02/24/2025 at 07:00 AM ESTSign off status: Pending * Provider: Merly Sosa DPM Date: 0 10/16/2023 Generated for Printing/Faxing/eTransmitting on:?02/24/2025 07:00 AM EST
--- OUTSIDE RECORDS SUMMARY | 2024-01-15 10:15 | XMS_ITS ---
Author Organization [facility] Address [address] [place] [address] [place] [address] Care Team Providers Care Freight Sorter Name Role Phone Mary Rodriguez Primary Care Provider UnavailGerardo Saunders Unavailable [phone] Encounters Encounter Location Date Provider Diagnosis [address] [address] 01/15/2024 Gerardo Sosa Plan Of Treatment No Information Progress Notes * Florina HERNANDEZDOB: 0 (74 yo F)Acc No.[id number]:01/15/2024 Patient:?Florina HERNANDEZ :?TOLU KeithMDOB:1950???Age:73 Y???Sex: FemaleDate:01/15/2024hone:[phone]:One [facility]Fag:Mary Rodriguez Subjective: * Chief Complaints: * * Medical History: Objective: * Vitals: Assessment: Plan: * Treatment: * Images: * Electronic signature of Gerardo Sosa DPM on 02/24/2025 at 07:00 AM ESTSign off status: Pending * Provider: Merly Sosa DPM Date: 0 01/15/2024 Generated for Printing/Faxing/eTransmitting on:?02/24/2025 07:00 AM EST
--- OUTSIDE RECORDS SUMMARY | 2024-04-08 08:45 | XMS_ITS ---
Author Organization [facility] Address [address] [place] [address] [place] [address] Care Team Providers Care Parts Classifier Name Role Phone Mary Rodriguez Primary Care Provider UnavailGerardo Saunders Unavailable [phone] Encounters Encounter Location Date Provider Diagnosis [address] [address] 04/08/2024 Gerardo Sosa Plan Of Treatment No Information Progress Notes * Florina HERNANDEZDOB: 0 (74 yo F)Acc No.[id number]:04/08/2024 Patient:?Florina HERNANDEZ :?TOLU KeithMDOB:1950???Age:73 Y???Sex: FemaleDate:04/08/2024hone:[phone]:One [place], [place]Wsn:Mary Rodriguez Subjective: * Chief Complaints: * * Medical History: Objective: * Vitals: Assessment: Plan: * Treatment: * Images: * Electronic signature of Gerardo Sosa DPM on 02/24/2025 at 07:00 AM ESTSign off status: Pending * Provider: Merly Sosa DPM Date: 06/09/2023 Generated for Printing/Faxing/eTransmitting on:?02/24/2025 07:00 AM EST
--- OUTSIDE RECORDS SUMMARY | 2024-07-15 08:45 | XMS_ITS ---
Author Organization [facility] Address [address] [place] [address] [place] [address] Care Team Providers Care Community Development Worker Name Role Phone Mary Rodriguez Primary Care Provider UnavailGerardo Saunders Unavailable [phone] Encounters Encounter Location Date Provider Diagnosis [address] [address] 07/15/2024 Gerardo Sosa Plan Of Treatment No Information Progress Notes * Florina HERNANDEZDOB: 0 (74 yo F)Acc No.[id number]:07/15/2024 Patient:?Florina HERNANDEZ :?TOLU KeithMDOB:1950???Age:74 Y???Sex: FemaleDate:07/15/2024Phone:[phone]:One [place], [place]Exr:Mary Rodriguez Subjective: * Chief Complaints: * * Medical History: Objective: * Vitals: Assessment: Plan: * Treatment: * Images: * Electronic signature of Gerardo Sosa DPM on 02/24/2025 at 06:59 AM ESTSign off status: Pending * Provider: Merly Sosa DPM Date: 0 07/15/2024 Generated for Printing/Faxing/eTransmitting on:?02/24/2025 06:59 AM EST
--- OUTSIDE RECORDS SUMMARY | 2024-10-07 08:45 | XMS_ITS ---
Author Organization [facility] Address [address] [place] [address] [place] [address] Care Team Providers Care Supervisor [employer] Name Role Phone Mary Rodriguez Primary Care Provider UnavailGerardo Saunders Unavailable [phone] Encounters Encounter Location Date Provider Diagnosis [address] [address] 10/07/2024 Gerardo Sosa Plan Of Treatment No Information Progress Notes * Florina HERNANDEZDOB: 0 (74 yo F)Acc No.[id number]:10/07/2024 Patient:?Florina HERNANDEZ :?TOLU KeithMDOB:1950???Age:74 Y???Sex: FemaleDate:10/07/2024Phone:[phone]:One [place], [place]Ulr:Mary Rodriguez Subjective: * Chief Complaints: * * Medical History: Objective: * Vitals: Assessment: Plan: * Treatment: * Images: * Electronic signature of Gerardo Sosa DPM on 02/24/2025 at 07:00 AM ESTSign off status: Pending * Provider: Merly oSsa DPM Date: 0 10/07/2024 Generated for Printing/Faxing/eTransmitting on:?02/24/2025 07:00 AM EST
--- OUTSIDE RECORDS SUMMARY | 2025-01-13 08:30 | XMS_ITS ---
Author Organization [facility] Address [address] [place] [address] [place] [address] Care Team Providers Care Debt Collection Specialist Name Role Phone Mary Rodriguez Primary Care Provider UnavailGerardo Saunders Unavailable [phone] Encounters Encounter Location Date Provider Diagnosis [address] [address] 01/13/2025 Gerardo Sosa Plan Of Treatment No Information Progress Notes * Florina HERNANDEZDOB: 0 (74 yo F)Acc No.[id number]:01/13/2025 Patient:?Florina HERNANDEZ :?TOLU KeithMDOB:1950???Age:74 Y???Sex: FemaleDate:01/13/2025Phone:[phone]:One [place], [place]Ihp:Mary Rodriguez Subjective: * Chief Complaints: * * Medical History: Objective: * Vitals: Assessment: Plan: * Treatment: * Images: * Electronic signature of Gerardo Sosa DPM on 02/24/2025 at 06:59 AM ESTSign off status: Pending * Provider: Merly Sosa DPM Date: 0 01/13/2025 Generated for Printing/Faxing/eTransmitting on:?02/24/2025 06:59 AM EST
--- OUTSIDE RECORDS SUMMARY | 2025-02-24 07:00 | XMS_ITS | Continuity of Care Document ---
Author Organization [facility] Address [address] [place] [address] Care Team Providers Care Tawer Name Role Phone Mary Rodriguez MD Attending Physician [phone] Medications Medication Frequency Instructions Diagnosis Start Date End Date Status Last Administered acetaminophen 500 mg tablet Every 6 Hours - PRN 2 tablets, ORAL, Every 6 Hours - PRN, Give 2 tablet by mouth every 6 hours as needed for pain (2 [id number]) 05/16/20235973Kkfjqc68/26/2025 08:34 AMacetaminophen 325 mg tablet,chewableEvery 6 Hours - PRN2 tablets, oral, Every 6 Hours - PRN, FOR FEVER 04/15/2024ctiveascorbic acid (vitamin C) 500 mg tabletOnce A Day1 tablet, oral, Once A DayD50.9 : Iron deficiency anemia, fhgmroddnez58/20/9977Smchko75/28/2025 08:26 AMbuspirone 5 mg tabletTwice A Day5 mg, oral, Twice A DayF41.9 : Anxiety disorder, xazwhdrfgqc59/27/7941Cihmaw69/28/2025 08:26 AMcholecalciferol (vitamin D3) 50 mcg (2,000 unit) tabletEvery day1 tablet, ORAL, Every day, Give 1 tablet by mouth one time a day for supplement 05/16/20233664Qrzfbb60/28/2025 08:26 AMdocusate sodium 100 mg capsuleTwice a day1 capsule, ORAL, Twice a day, Give 1 capsule by mouth two times a day for constipation 05/21/20237485Hdijhk86/28/2025 08:26 AMEnemeez (docusate sodium) 283 mg/5 mL enema Once A Day - PRN1 enema, rectal, Once A Day - PRN, Step 3: If no BM by morning of day 4, administer 1 Enemeez MicroEnema in the morning. Indication for use: Constipation Step 4: If no BM within 1 hour of administering Enemeez, contact provider. 5Activeferrous sulfate 325 mg (65 mg iron) tabletOnce A Day1 tablet, oral, Once A DayD50.9 : Iron deficiency anemia, ybparnnrgjt03/20/2024 Qkbddv0702/16/2025 08:26 AMKisqali (ribociclib) 600 mg/day (200 mg x 3) tabletOnce A Day Give 21 Days Hold 7 Days3 tablets, oral, Once A Day Give 21 Days Hold 7 Days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 tive01/29/2025 12:53 PMKisqali (ribociclib) 600 mg/day (200 mg x 3) tabletOnce A Day Give 21 Days Hold 7 Days3 tablets, oral, Once A Day Give 21 Days Hold 7 Days, Prescribing physician: Dr. Senthil Caldera M.D. 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 5Activelisinopril 10 mg tabletEvery day1 tablet, ORAL, Every day, Give 1 tablet by mouth one time a day for htn 01/02/16/2025 08:26 AMmelatonin 5 mg tabletAt bedtime1 tablet, ORAL, At bedtime, Give 1 tablet by mouth at bedtime for insomnia 01/21/20234334Mqqoms71/27/2025 08:50 PMMiralax (polyethylene glycol 3350) 17 gram/dose powderOnce A Day - TTU80ka (1 capful), oral, Once A Day - PRN, Step 1: If no BM by Day 2, Mix 17gm (1 capful) in 4-8oz beverage of choice in the morning. Indication for use: Constipation tiveMiralax (polyethylene glycol 3350) 17 gram/dose powder Once A Day - XQS81al (1 Capful), oral, Once A Day - PRN, Step 2: If no BM by Day 3, Give 17gm (1 Capful) in 4-8 ounces of beverage of choice. Indication for use: Constipation tivepolyethylene glycol 3350 17 gram powder in packetOnce A Day17 gram, ORAL, Once A Day, Give 17 gram by mouth for constipation QD 08/15/20231525Yagxxw39/28/2025 08:26 AMPro-Stat AWC (amino acids-protein hydrolys) 17-100 gram-kcal/30 mL liquidTwice A Day30 ml, oral, Twice A Day 05/08/20243420Qrpxpp44/28/2025 08:26 AMsimvastatin 20 mg tabletOnce A Day1 tablet, oral, Once A Day, hyperlipidemia 10/21/20244407Qzvdhu57/27/2025 08:50 PMtramadol 50 mg tabletEvery 6 Hours - PRN1 tablet, ORAL, Every 6 Hours - PRN, Take 1 tablet (50 mg) by mouth every 6 (six) hours if needed for severe painG89.4 : Chronic pain jhdyhndd88/30/2024ctive 02/16/2025 08:27 AMTussin CF Cough-Cold (mfbepydkymywd-jc-eslptogflpk) 5-10-100 mg/5 mL liquidEvery 4 Hours - WWL94pn, oral, Every 4 Hours - PRN, cough/ congestion 04/15/20249323Ohwfsd69/10/2025 07:57 AMFluzone High-Dose (PF) (flu vacc qz4155-37(65yr up)-pf) 180 mcg/0.5 mL syringeOnce - One Time0.5ml, intramuscular, Once - One Time Not Wdhgqp3101/25/2025 02:08 PMKionex (with sorbitol) (sodium polystyrene sulf-sorbtl) 15-20 gram/60 mL suspensionOnce - One Ekqc55ruamt, oral, Once - One Time Not Uwkcfn7601/27/2025 05:24 PMKionex (with sorbitol) (sodium polystyrene sulf-sorbtl) 15-20 gram/60 mL suspensionOnce - One Time30 grams, oral, Once - One TimeE87.5 : Jgohjldpzehz77Not Active 02/04/2025 04:11 PMMnexspike (PF) (covid vac 25-26(12up)(mod)(pf)) 10 mcg/0.2 mL syringeOnce - One Time0.2 mL, intramuscular, Once - One Time Not Jrwotc6602/15/2025 12:13 PMsodium polystyrene sulfonate 15 gram powderOnce - One Time30 grams, oral, Once - One TimeE87.5 : Hyperkalemia Not Zhxvcz9401/26/2025 04:43 PM Problems Code Type Problem ICD [...] Begin Date Status Drug allergy Penicillins Allergy 12/23/2022ctiveDrug allergySulfa (Sulfonamide Antibiotics)Allergy 12/23/2022ctiveAllergy to substanceBee StingAllergy 12/23/2022ctiveAllergy to substancegrassAllergyNasal ucpvaijswyGcgo40/10/2025 Active Vital Signs Height: 66.5 in Date / Time Temperature Pulse (per minute) Respirations (per minute) Systolic BP (mmHg) Diastolic BP (mmHg) O2 Saturation (%) Weight BMI 02/15/2025 12:12 PM 98.0 F 01/28/2025 08:33 AM98.2 F 01/28/2025 02:21 AM98.0 F 01/27/2025 04:06 PM98.2 F 01/27/2025 08:45 AM98.0 F 01/27/2025 06:41 AM97.6 F 01/26/2025 06:33 PM97.2 F 01/26/2025 08:42 AM97.6 F 01/26/2025 05:15 AM97.9 F 01/25/2025 04:02 PM98.1 F 01/21/2025 02:25 PM 253.0 lbs40.2210 01:38 PM [id number] 12/28/2024 06:04 PM [id number] 12/24/2024 02:42 PM 245.0 lbs38.95011/21/2024 06:55 PM [id number] 11/21/2024 02:58 PM 242.5 lbs38.5507 12:02 PM [id number] 09/20/2024 04:43 PM 56573964015.0 08/25/2024 05:12 PM 827462480 08/23/2024 07:04 PM 29634130318.0 07/24/2024 06:26 PM 99856600949.0 06/25/2024 02:02 PM 20 06/22/2024 01:16 AM 81 1467186.0 05/23/2024 10:09 PM 12731598359.0 04/22/2024 07:50 AM 96.0 04/16/2024 10:14 AM 98.0 Advance Directives Directive Note Full Code Insurance Providers Payer Policy type Group Name Group number Policy ID Address Ph one Medicare A Medicare Part A [id number]: Fax:[employer] Skilled ISNPCommercial Insurance [id number]: Fax:[employer] Part BCommercial Insurance [id number]: Fax:Vaccinations - OptumLike Medicare Part B 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 Date Status Dose Series Complete COVID-19 Vaccine Moderna [id number] 02/15/2025 Completed 1 COVID-19 VaccineModerna 2023-/5CompletedBooster Monovalent COVID-19 VaccineModerna 2023-/4CompletedBooster Monovalent COVID-19 FlzowmgXdtzfqk55//4CompletedBooster 2 - Monovalent COVID-19 VaccineModerna 2022-//3CompletedBooster Monovalent COVID-19 VaccinePfizer-UkdSBfid86/0633Jgpimcuio8 COVID-19 VaccinePfizer-PapJTfga58/0396Pctppiwuv9 COVID-19 VaccinePfizer-KlrZSwsr71/21/4056Djdlcuxvi2 Influenza Vaccinesanofi /06/2025Completed Influenza Vaccinesanofi pasteur fluzone high dose4Completed Influenza Vaccine 3Completed Pneumococcal Vaccine 3Completed Pneumococcal Vaccine 04/12/2017Completed RSV FirtvdyUZF04/13/2024Completed Procedures Not available for this record Results [...] review. 02/17/2025 Resident will not exhibit dr juliasiness/oversedation, delayed reaction, imp. cognition/behavior, disturbed balance/gait/positioning ability, [...] the oral cavity through next review 02/17/2025 Resident's skin tear left thigh will hea l without complications. 03/02/2025 The resident will identify a ppropriate diversional activities by the next review 04/22/2025 Encounters Admission Date Discharge Date Description MRN Visit Count 12/23/2022 00:00 [facility] [id number]
--- OUTSIDE RECORDS SUMMARY | 2025-02-24 07:00 | XMS_ITS | Clinical Summary ---
Author Organization [facility] Address [address] [place] [address] Care Team Providers Care Permit Specialist Name Role Phone Unallocated, [facility] Provider Primary Care Provi ramone Allergies Active AllergyReactionsCriticalityNoted DateCommentsPenicillin G012/15/2021 Other Reaction(s): Unknown PenicillinsShortness of breath,WpeitmzPhyg19/26/2022ulfa AntibioticsShortness of qpizbkTkbk92/31/2023 Medications MedicationSigDispense QuantityRefillsLast FilledStart DateEnd DateStatus ribociclib 200 mg dose (Kisqali, 200 MG Dose,) tablet chemo therapy pack See Instructions, 2 tab(s) take for 21 days, withhold for 7 days, then repeat cycle. 11 REFILLS, # 42 tab(s), Refills(s) 1, called to pharmacy (Rx)05/09/2022 Active anastrozole (Arimidex) 1 MG chemo tablet 1 (one) time each day at the same time.Active lisinopril 10 MG tablet 1 (one) time each day at the same time.Active simvastatin (Zocor) 40 MG tablet 1 (one) time each day at the same time.Active cyanocobalamin (Vitamin B-12) 1000 MCG tablet Take 1,000 mcg by mouth in the morning.09/27/2022ctive cholecalciferol (Vitamin D-3) 50 MCG (2000 UT) tablet Take 2,000 Units by mouth in the morning.12/14/2022ctive oxyCODONE (Roxicodone) 5 MG immediate release tablet Take 5 mg by mouth every 6 (six) hours if needed for severe pain.12/17/2022 Active Active Problems ProblemNoted DateDiagnosed DateAxillary bkixxsuhgg86/05/2023reast cancer 10/24/2022HTN (hypertension)10/24/2022Malignant neoplasm of upper-outer quadrant of female puaojd0810/24/2022Malignant tumor of colon10/24/2022Mass of upper outer quadrant of right ppfllq4110/24/2022MI 36.0-36.9,adult10/24/20226625Inafppa59/05/2023 Qwtkkzdfpixhizfpjq75/05/2662Gnzkhqvymomri27/31/2023Pain in left toe(s)09/19/2022 Pain in right toe(s)09/19/2022Malignant neoplasm of upper-outer quadrant of right female onvccu1909/13/2021lass 1 prmknke5609/13/2021ure hypercholesterolemia 06/12/2021Type 2 diabetes mellitus without rpurahvtvbvqh29/02/2017H/O high risk medication kyyzyfenc10/28/2015Chronic edema03/19/2015Essential hypertension 03/19/2015Diabetes qjcgeuqg50/19/2015 Encounters DateTypeDepartmentCare OeasNmpxyljgtsh41/08/2025linisync Result Encounter [facility] Unsolicited Mary Rodriguez MD from Last 3 Months Immunizations ImmunizationAdministration DatesNext DueInfluenza, High Dose Seasonal, Preservative Free05/22/2019,03/19/2018,04/12/2017Influenza, High-dose Seasonal, Quadrivalent, Preservative Free1Pneumococcal Conjugate PCV 13106/13/2016 Social History Tobacco UseTypesPacks/DayYears UsedDateSmoking Tobacco: NeverSmokeless Tobacco: Never Tobacco Cessation:Counseling Given: Not Answered PHQ-2AnswerDate RecordedPatient Health Questionnaire-2 Iawrh2843 CommentsUnknownSex and Gender InformationValueDate RecordedSex Assigned at Not on fileLegal IagWttndc05/15/2023 7:27 PM EDTGender IdentityNot on fileSexual OrientationNot on file Last Filed Vital Signs Vital SignReadingTime TakenCommentsBlood Qhxsapcp002/7807 1:39 PM EDT Eokgj611710/24/2022 1:39 PM LNWVzvawzpwwvt67.3 ??C (97.3 ??F)10/24/2022 1:39 PM EDTRespiratory Rate--Oxygen Rsjbxztvgu63%10/24/2022 1:39 PM EDTInhaled Oxygen Concentration--Wpogpp73.7 kg (189 lb)10/24/2022 1:39 PM RRTIkkkgt415.2 cm (5' 7 )10/24/2022 1:39 PM EDTBody Mass Index29.607 1:39 PM EDT Plan of Treatment Health MaintenanceDue DateLast DoneCommentsCT Myygivborwyj45/19/1950FIT-DNA 1949FIT1949FOBT1949 5608Qlroykdwsqrjs97/19/1950Diabetes: Retinopathy Cvbmrgrlk53/19/1960Diabetes: Urine Protein Xxlltiesm42/19/1969 Diabetes: Hemoglobin A1C/08/2022, 06/22/2022, 12/15/2021, Additional history existsCOVID-19 Vaccine ( season)/, 01/18/2021, 06/29/2020, Additional history existsInfluenza Vaccine (#1) /11/2023, 02/13/2021, 05/22/2019, Additional history exists Zorxbdbztuy09Colorectal Cancer Dktjernpx62/20/2030Mammogram Ijsxawjndrhi12/10/2022, 04/10/2020Pneumococcal Vaccine: 65+ YearsCompleted 01/10/2023, 04/12/2017 Procedures Procedure NamePriorityDate/TimeAssociated DiagnosisCommentsALL POTASSIUMRoutine 01/27/2025 11:00 AM EDT POCT GLYCATED HEMOGLOBIN, WPMUHHjuzujq86/05/2023 2:01 PM EDT Type 2 diabetes mellitus without complication, unspecified whether keno terminal operator insulin use (HCC) BI MAMMOGRAM DIAGNOSTIC TOMOSYNTHESIS BEAIAZVOCYxmanco00/10/2022 Disorder of breast, unspecified DXNYSETMUTMPlsytkm30/20/2020 12:00 PM EST from Last 3 Months or Most Recently Relevant to Health Maintenance Results * ALL POTASSIUM (01/27/2025 11:00 AM EDT)ComponentValueRef RangeTest Method Analysis TimePerformed AtPathologist SignaturePOTASSIUM4.93.5 - 5.1 mmol/LTBH Specimen (Source)Anatomical Location / LateralityCollection Method / Volume Collection TimeReceived Time01/27/2025 11:00 AM EDT1 12:09 PM EDT Narrative CLINISYNC - 01/27/2025 12:30 PM EDT [place] Real-Time [facility] DROP OFF Authorizing ProviderResult TypeResult StatusMary Rodriguez MDCLINISYNCFinal Result Performing OrganizationAddressCity/State/ZIP CodePhone Number [facility] * (ABNORMAL) POCT Glycated hemoglobin, total (10/24/2022 2:01 PM EDT)Component ValueRef RangeTest MethodAnalysis TimePerformed AtPathologist Signature Hemoglobin A1C6.2Specimen (Source)Anatomical Location / LateralityCollection Method / VolumeCollection TimeReceived CrobCxdsf37/05/2023 2:01 PM EDT Narrative Authorizing ProviderResult TypeResult StatusPePatel [facility]ENTEROINT OF CARE TEST ENTER/EDIT ORDERABLESFinal Result * Bilateral diagnostic mammogram with tomosynthesis (06/29/2021)Anatomical RegionLateralityModalityBreastBilateralMammographySpecimen (Source)Anatomical Location / LateralityCollection Method / VolumeCollection TimeReceived Time Narrative 06/29/2021 12:00 AM EST PERFORMED AT [facility] LOCATION:[place] [id number] Exam Date/Time: 06/29/2021 13:01 EST Reason for Exam: N64.9 Report IMPRESSION: BIRADS 5 HIGHLY SUGGESTIVE OF MALIGNANCY APPROPRIATE ACTION SHOULD BE TAKEN. Abnormal 4.2 cm mass in the right breast upper outer quadrant corresponding to the palpable abnormality. Biopsy of the mass is recommended. Abnormal right axillary lymphadenopathy consider biopsy also. EXAMINATION: MA Mamm Diag w/CAD if perf and 3D Migue CLINICAL HISTORY: N64.9 COMPARISON: None. RESULT: Digital mammography and 3D tomosynthesis of bilateral breasts was performed. There are scattered areas of fibroglandular density. Irregular shaped mass with spiculated margins within the upper outer quadrant of the right breast correlating with the palpable marker. Associated suspicious microcalcifications within the mass. The mass measures around 4.2 cm. There is also a small nodule more anteriorly near the mass measuring around 6 mm. Ultrasound is recommended for further evaluation. No suspicious findings within the left breast. On the right breast ultrasound there is an irregular mass with spiculated margins and heterogeneous echogenicity with internal vascularity and posterior shadowing. This mass measures approximately 4.2 x 2.7 x 3.1 cm. The mass is located at approximately the 11:00 position 5.1 cm from the nipple. The right axillary region was also evaluated. There are abnormal right axillary lymph nodes with cortical thickness measuring around 4 mm. The adjacent 6 mm nodule was not well-visualized sonographically. CAD analysis was performed and used in the interpretation. Dense Breast: ??No Follow-up: ??RECALL ??NOW. Board Certified Radiologists. ??Accredited by the ACR and FDA. MAMMOGRAPHY IS VERY IMPORTANT TO YOUR HEALTH. ??THE [place] [employer] GUIDELINES RECOMMEND THAT WOMEN 40 YEARS OF AGE AND OLDER SHOULD HAVE A MAMMOGRAM EVERY YEAR. A REMINDER LETTER WILL BE SENT AT THE APPROPRIATE TIME. ??THIS FACILITY UTILIZES A REMINDER SYSTEM TO ENSURE ALL PATIENTS RECEIVE REMINDER NOTIFICATIONS AT THE APPROPRIATE TIME BASED ON THE RECOMMENDATIONS OF THIS EXAM. THIS INCLUDES REMINDERS FOR ROUTINE SCREENING MAMMOGRAMS DIAGNOSTIC MAMMOGRAMS IN WHICH THE PATIENT IS ASKED Report TO RETURN FOR ADDITIONAL VIEWS OR OTHER BREAST IMAGING INTERVENTIONS WHEN APPROPRIATE. THE PATIENT WILL BE PLACED IN THE APPROPRIATE REMINDER SYSTEM INCLUDING A REMINDER AT THE APPROPRIATE TIME FOR ANY PENDING ADDITIONAL VIEWS. FINAL REPORT Dictated: ??06/29/2021 3:16 pm ? Linda Hernandes Signed (Electronic Signature): ??06/29/2021 3:16 pm Signed by: ??Linda Hernandes Transcribed by: ??DP ? Technologist: ??CM Assessment: BI-RADS Category ??5-Highly suggestive of malignancy appropriate action should be taken Recommendation: ??Highly suggestive of malignancy - take appropriate action Procedure Note CONVERSION, GENERIC - 10/26/2022 PERFORMED AT [facility] LOCATION:[place] [id number] Exam Date/Time: 06/29/2021 13:01 EST Reason for Exam: N64.9 Report IMPRESSION: BIRADS 5 HIGHLY SUGGESTIVE OF MALIGNANCY APPROPRIATE ACTION SHOULD BE TAKEN. Abnormal 4.2 cm mass in the right breast upper outer quadrant corresponding to the palpable abnormality. Biopsy of the mass is recommended. Abnormalright axillary lymphadenopathy consider biopsy also. EXAMINATION: MA Mamm Diag w/CAD if perf and 3D Migue CLINICAL HISTORY: N64.9 COMPARISON: None. RESULT: Digital mammography and 3D tomosynthesis of bilateral breasts wasperformed. There are scattered areas of fibroglandular density. Irregular shaped mass with spiculated margins within the upper outerquadrant of the right breast correlating with the palpable marker. Associated suspicious microcalcifications within the mass. The mass measures around 4.2 cm.There is also a small nodule more anteriorly near the mass measuring around 6 mm. Ultrasound is recommended for further evaluation. No suspicious findings within the left breast. On the right breast ultrasound there is an irregular mass with spiculatedmargins and heterogeneous echogenicity with internal vascularity and posterior shadowing. This mass measures approximately 4.2 x 2.7 x 3.1 cm. The mass is located at approximately the 11:00 position 5.1 cm from the nipple. The right axillary region was also evaluated. There are abnormal right axillary lymph nodes with corticalthickness measuring around 4 mm. The adjacent 6 mm nodule was not well-visualized sonographically. CAD analysis was performed and used in the interpretation. Dense Breast: No Follow-up: RECALL NOW. Board Certified Radiologists. Accredited by the ACR and FDA. MAMMOGRAPHY IS VERY IMPORTANT TO YOUR HEALTH. THE [place] [employer] GUIDELINES RECOMMEND THAT WOMEN 40 YEARS OF AGE AND OLDER SHOULD HAVE A MAMMOGRAMEVERY YEAR. A REMINDER LETTER WILL BE SENT AT THE APPROPRIATE TIME. THIS FACILITYUTILIZES A REMINDER SYSTEM TO ENSURE ALL PATIENTS RECEIVE REMINDER NOTIFICATIONS ATTHE APPROPRIATE TIME BASED ON THE RECOMMENDATIONS OF THIS EXAM. THIS INCLUDES REMINDERS FOR ROUTINE SCREENING MAMMOGRAMS DIAGNOSTIC MAMMOGRAMS IN WHICH THE PATIENT IS ASKED Report TO RETURN FOR ADDITIONAL VIEWS OR OTHER BREAST IMAGING INTERVENTIONS WHEN APPROPRIATE. THE PATIENT WILL BE PLACED IN THE APPROPRIATE REMINDER SYSTEM INCLUDING A REMINDER AT THE APPROPRIATE TIME FOR ANY PENDING ADDITIONAL VIEWS. FINAL REPORT Dictated: 06/29/2021 3:16 pm Linda Hernandes Signed (Electronic Signature): 06/29/2021 3:16 pm Signed by: Linda Hernandes Transcribed by: TOLU Technologist: ZENA Assessment: BI-RADS Category 5-Highly suggestive of malignancy appropriate action should be taken Recommendation: Highly suggestive of malignancy - take appropriateaction Authorizing ProviderResult TypeResult StatusPeter Shane Askew MDIMG BI PROCEDURES Final Result * Colonoscopy (04/10/2020 12:00 PM EST)Anatomical RegionLateralityModality EndoscopySpecimen (Source)Anatomical Location / LateralityCollection Method / VolumeCollection TimeReceived Time04/10/2020 12:00 PM EST Narrative 04/10/2020 12:00 PM EST PERFORMED AT [facility] LOCATION:[id number] Refused Procedure Note CONVERSION, GENERIC - 09/05/2022 PERFORMED AT [facility] LOCATION:[id number] Refused Authorizing ProviderResult TypeResult StatusPeter Shane Askew MDENDOSCOPY PROCEDURE ORDERABLESFinal Result from Last 3 Months or Most Recently Relevant to Health [place] [address] Care Teams Team MemberRelationshipSpecialtyStart DateEnd Date Unallocated, [facility] Provider, [address] [place] [address] PCP - GeneralFamily Medicine08/14/23
--- OUTSIDE RECORDS SUMMARY | 2025-02-24 07:00 | XMS_ITS | Continuity of Care Document ---
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 mzjkqdM69.411 09/13/2021ctiveEssential (primary) dqiqojmllegbK8136/ctiveAnxiety disorder, ioqplffqaqaO27.910ctiveTinea vqmramdG68.1053Active Difficulty in walking, not elsewhere cuhmdnzixvK67.209ctiveVitamin D deficiency, adcjviznkptQ09.909ctiveInsomnia, jpopxdeaettC76.00 01/22/2023ctiveMuscle weakness (generalized)M62.8109ctiveCognitive communication mfzxyneF20.96434ctivePersonal history of malignant neoplasm of ayxyqwC78.309/ctivePure hypercholesterolemia, unspecified E78.0002/2ActiveIron deficiency anemia, eowvyfzqzkvE84.902ctive Chronic pain rdbbsijlB31.401ctiveLimitation of activities due to cucwvjglffH66.614ActiveUrinary tract infection, site not eillhyhmbQ41.0 12/24/2022ctiveType 2 diabetes mellitus with diabetic chronic kidney disease E11.22055ActiveEncounter for hhgalzojrtrfE7195/5ActiveHyperkalemia E87.5105Active Results Test Result Date/Time Value / Unit Interp. Refere nce Range Blood chemistry[540878288] Glucose [Mass/volume] in Serum or Plasma [2345-7] 09/30/2024 10:25 AM 140 mg/dL N COVID-19 Test Viral Antigennull flavor [null]05/11/2024 05:00 PMSee noteNEG COVID-19 Test Viral AntigenCOVID-19 Test Viral Antigennull flavor [null] 05/09/2024 05:00 PMSee noteNEGCOVID-19 Test Viral AntigenCOVID-19 Test Viral Antigennull flavor [null]05/07/2024 05:00 PMSee noteNEGCOVID-19 Test Viral AntigenCOVID-19 Test Viral Antigennull flavor [null]04/16/2024 05:00 PMSee note NEGCOVID-19 Test Viral AntigenCOVID-19 Test Viral PCRnull flavor [null] 02/06/2024 04:00 PMSee noteNEGCOVID-19 Test Viral PCRCOVID-19 Test Viral Antigen null flavor [null]02/04/2024 04:00 PMSee noteNEGCOVID-19 Test Viral Antigen Allergies, adverse reactions, alerts Substance Reaction Date Status Type Penicillins 12/23/2022Non DrugSulfa (Sulfonamide Antibiotics)12/23/2022Non DrugBee Sting 12/23/2022Non DruggrassNasal congestion (Mild)10/29/2024Non Drug Immunizations Vaccine Route Date Status COVID-19 [...] Vaccine Unassigned Route of Administration 1 Completed COVID-19 Vaccine Unassigned Route of Administration Completed Medications Medication Instructions Route Dosage Frequency Start Date Stop Da te Indications Status acetaminophen 500 mg tablet (acetaminophen) 2 tablets, ORAL, Every 6 Hours - PRN, Give 2 tablet by mouth every 6 hours as needed for pain (2 [id number]) ORAL 1.0 6.0 h 05/16/2023 Activealprazolam 0.5 mg tablet (alprazolam)1 tablet, oral, Every 4 Hours - PRN oral1.04.0 nxiety disorder, unspecifiedActiveascorbic acid (vitamin C) 500 mg tablet (ascorbic acid (vitamin C))1 tablet, oral, Once A Day oral1.01.0 d006/11/2023Iron deficiency anemia, unspecifiedActivebuspirone 5 mg tablet (buspirone)1 tablet, oral, Once A Dayoral1.01.0 d105/25/2023nxiety disorder, unspecifiedActivecholecalciferol (vitamin D3) 50 mcg (2,000 unit) tablet (cholecalciferol (vitamin D3))1 tablet, ORAL, Every day, Give 1 tablet by mouth one time a day for supplementORAL1.01.0 d005/16/2023ctivedocusate sodium 100 mg capsule (docusate sodium)1 capsule, ORAL, Twice a day, Give 1 capsule by mouth two times a day for constipationORAL1.012.0 h005/21/2023ctiveferrous sulfate 325 mg (65 mg iron) tablet (ferrous sulfate)1 tablet, oral, Once A Day oral1.01.0 d006/11/2023Iron deficiency anemia, unspecifiedActiveKisqali (ribociclib) 600 mg/day (200 mg x 3) tablet (Kisqali (ribociclib))3 tablets, oral, Once A Day Give 21 Days Hold 7 Daysoral1.01.0 d1/ Malignant neoplasm of upper-outer quadrant of right female breastActive lisinopril 10 mg tablet (lisinopril)1 tablet, ORAL, Every day, Give 1 tablet by mouth one time a day for htnORAL1.01.0 d04Activemelatonin 5 mg tablet (melatonin)1 tablet, ORAL, At bedtime, Give 1 tablet by mouth at bedtime for insomniaORAL1.3Activepolyethylene glycol 3350 17 gram powder in packet (polyethylene glycol 3350)17 gram, ORAL, Once A Day, Give 17 gram by mouth for constipation QDORAL1.01.0 d008/15/2023ctivesimvastatin 20 mg tablet (simvastatin)1 tablet, oral, Once A Dayoral1.01.0 d011/20/2023ctivetramadol 50 mg tablet (tramadol)1 tablet, ORAL, Every 6 Hours - PRN, Take 1 tablet (50 mg) by mouth every 6 (six) hours if needed for severe painORAL1.06.0 05/21/2023 Chronic pain syndromeActivebuspirone 5 mg tablet (buspirone)0.5 tablet, oral, Once A Dayoral1.01.0 d04Anxiety disorder, unspecifiedActive furosemide 20 mg tablet (furosemide)1 tablet, oral, Once A Day, edemaoral1.01.0 d1/04/2023Essential (primary) hypertensionActiveKisqali (ribociclib) 600 mg/day (200 mg x 3) tablet (Kisqali (ribociclib))3 tablets, oral, Once A Day Give 21 Days Hold 7 Daysoral1.01.0 d1/Malignant neoplasm of upper-outer quadrant of right female breastActiveacetaminophen 325 mg tablet,chewable (acetaminophen)2 tablets, oral, Every 6 Hours - PRN, FOR FEVER oral1.06.0 4ActiveTussin CF Cough-Cold (ivdjnrzbsgscw-ao-ywxxetrotte) 5-10-100 mg/5 mL liquid (Tussin CF Cough-Cold (puknjofynopay-jd-xleablksimd)) 10ml, oral, Every 4 Hours - PRN, cough/ congestionoral1.04.0 4Active Mucinex DM (dextromethorphan-guaifenesin) 30-600 mg tablet extended release 12 hr (Mucinex DM (dextromethorphan-guaifenesin))1 tablet, oral, Twice A Day, cough/congestionoral1.012.0 h01//511807/5ActivePro-Stat AWC (amino acids-protein hydrolys) 17-100 gram-kcal/30 mL liquid (Pro-Stat AWC (amino acids -protein hydrolys))30 ml, oral, Twice A Dayoral1.012.0 h05ActiveSpikevax 8937-8642(12y up)(PF) (covid vac 24-25(12up)(mod)(pf)) 50 mcg/0.5 mL syringe (Spikevax 7232-3572(12y up)(PF) (covid vac 24-25(12up)(mod)(pf)))0.5ml, intramuscular, Once - One Timeintramuscular1.004//864587/5Active buspirone 5 mg tablet (buspirone)5 mg, oral, Twice A Dayoral1.012.0 h009/15/2024 Anxiety disorder, unspecifiedActivesimvastatin 20 mg tablet (simvastatin)1 tablet, oral, Once A Day, hyperlipidemiaoral1.01.0 d05ActiveSPS (with sorbitol) (sodium polystyrene sulf-sorbtl) 15-20 gram/60 mL suspension (SPS (with sorbitol) (sodium polystyrene sulf-sorbtl))Give 30mL, oral, STAT - Immediately, For elevated K+ Laboratory results.oral1.009//512982/05/2024 Muscle weakness (generalized)ActiveFluzone High-Dose (PF) (flu vacc wp4656-25(65yr up)-pf) 180 mcg/0.5 mL syringe (Fluzone High-Dose (PF) (flu vacc na4519-18(65yr up)-pf))0.5ml, intramuscular, Once - One Time intramuscular1.010/7760025Activesodium polystyrene sulfonate 15 gram powder (sodium polystyrene sulfonate)30 grams, oral, Once - One Timeoral1.0 /10/2024HyperkalemiaActiveKionex (with sorbitol) (sodium polystyrene sulf-sorbtl) 15-20 gram/60 mL suspension (Kionex (with sorbitol) (sodium polystyrene sulf-sorbtl))15grams, oral, Once - One Timeoral1.0105ActiveKionex (with sorbitol) (sodium polystyrene sulf-sorbtl) 15-20 gram/60 mL suspension (Kionex (with sorbitol) (sodium polystyrene sulf-sorbtl)) 30 grams, oral, Once - One Timeoral1.01051HyperkalemiaActive Mnexspike 5442-7189 (PF) (covid vac 25-26(12up)(mod)(pf)) 10 mcg/0.2 mL syringe (Mnexspike 2399-9943 (PF) (covid vac 25-26(12up)(mod)(pf)))0.2 mL, intramuscular, Once - One Timeintramuscular1.510/5ActiveEnemeez (docusate sodium) 283 mg/5 mL enema (Enemeez (docusate sodium))1 enema, rectal, Once A Day - PRN, Step 3: If no BM by morning of day 4, administer 1 Enemeez MicroEnema in the morning. Indication for use: ConstipationStep 4: If no BM within 1 hour of administering Enemeez, contact provider.rectal1..0 d /tiveKisqali (ribociclib) 600 mg/day (200 mg x 3) tablet (Kisqali (ribociclib))3 tablets, oral, Once A Day Give 21 Days Hold 7 Days, Prescribing physician: Dr. Senthil Caldera M.D.oral1..0 d1Malignant neoplasm of upper-outer quadrant of right female breastActiveMiralax (polyethylene glycol 3350) 17 gram/dose powder (Miralax (polyethylene glycol 3350))17gm (1 capful), oral, Once A Day - PRN, Step 1: If no BM by Day 2, Mix 17gm (1 capful) in 4-8oz beverage of choice in the morning. Indication for use: Constipationoral1.01.0 d1510/tivesodium polystyrene sulfonate 15 gram powder (sodium polystyrene sulfonate)45 gram, oral, Once - One Timeoral 1.0115104/25/2024HyperkalemiaActive Vital Signs Date Vital Result Comment 03/24/2024 07:42 AM Temperature (8310-5) 98 [degF] 03/23/2024 09:18 PMTemperature (8310-5)98.3 [degF]Oxygen Saturation (02214-7)96 %Respiratory Rate (9279-1)18 /minHeart Rate (8867-4)80 /minBlood Pressure Systolic (8480-6)126 mm[Hg]Blood Pressure Diastolic (8462-4)80 mm[Hg]03/23/2024 07:53 AMTemperature (8310-5)98.3 [degF]03/22/2024 08:20 AMTemperature (8310-5) 98.3 [degF]03/21/2024 12:49 PMBody Weight (25043-1)233 [lb_av]Body Mass Index (54140-9)37.04 kg/m203/20/2024 10:18 AMBody Weight (15457-7)234 [lb_av]Body Mass Index (24829-9)37.2 kg/m203/19/2024 11:41 AMBody Weight (50013-5)237 [lb_av] Body Mass Index (46860-0)37.68 kg/m203/18/2024 12:16 PMBody Weight (98801-9)224 [lb_av]Body Mass Index (49670-5)35.61 kg/m202/21/2024 01:32 PMBody Weight (10596-1)225.5 [lb_av]Body Mass Index (32933-7)35.85 kg/m201/30/2024 12:23 AM Temperature (8310-5)98 [degF]01/29/2024 06:44 PMTemperature (8310-5)98.1 [degF] 01/29/2024 08:44 AMTemperature (8310-5)98.2 [degF]01/29/2024 12:52 AMTemperature (8310-5)97.5 [degF]01/28/2024 09:29 PMTemperature (8310-5)98.2 [degF]01/28/2024 03:46 PMBody Weight (05927-0)223 [lb_av]Body Mass Index (55148-2)35.45 kg/m2 01/28/2024 11:43 AMTemperature (8310-5)98.3 [degF]01/22/2024 10:42 PMOxygen Saturation (91095-3)98 %Respiratory Rate (9279-1)16 /minHeart Rate (8867-4)67 /minBlood Pressure Systolic (8480-6)155 mm[Hg]Blood Pressure Diastolic (8462-4) 68 mm[Hg]12/22/2023 12:49 AMOxygen Saturation (39068-1)98 %Respiratory Rate (9279-1)18 /minHeart Rate (8867-4)63 /minBlood Pressure Systolic (8480-6)140 mm[Hg]Blood Pressure Diastolic (8462-4)96 mm[Hg]11/21/2023 10:48 PMOxygen Saturation (48581-5)96 %Respiratory Rate (9279-1)16 /minHeart Rate (8867-4)85 /minBlood Pressure Systolic (8480-6)126 mm[Hg]Blood Pressure Diastolic (8462-4) 81 mm[Hg]10/25/2023 10:20 PMOxygen Saturation (23308-2)97 %Respiratory Rate (9279-1)16 /minHeart Rate (8867-4)70 /minBlood Pressure Systolic (8480-6)159 mm[Hg]Blood Pressure Diastolic (8462-4)72 mm[Hg]09/26/2023 12:19 PMOxygen Saturation (73983-8)96 %Respiratory Rate (9279-1)16 /minHeart Rate (8867-4)80 /minBlood Pressure Systolic (8480-6)119 mm[Hg]Blood Pressure Diastolic (8462-4) 54 mm[Hg]09/17/2023 10:10 PMOxygen Saturation (25199-8)96 %Respiratory Rate (9279-1)16 /minHeart Rate (8867-4)72 /minBlood Pressure Systolic (8480-6)126 mm[Hg]Blood Pressure Diastolic (8462-4)71 mm[Hg]09/16/2023 09:30 PMOxygen Saturation (52768-2)97 %Respiratory Rate (9279-1)16 /minHeart Rate (8867-4)80 /minBlood Pressure Systolic (8480-6)122 mm[Hg]Blood Pressure Diastolic (8462-4) 70 mm[Hg]09/13/2023 01:24 PMOxygen Saturation (25319-8)96 %Respiratory Rate (9279-1)18 /minHeart Rate (8867-4)76 /minBlood Pressure Systolic (8480-6)124 mm[Hg]Blood Pressure Diastolic (8462-4)77 mm[Hg]09/12/2023 11:43 PMRespiratory Rate (9279-1)14 /minHeart Rate (8867-4)76 /minBlood Pressure Systolic (8480-6) 132 mm[Hg]Blood Pressure Diastolic (8462-4)78 mm[Hg]09/08/2023 09:33 AMOxygen Saturation (92521-4)96 %12/23/2022 12:00 AMBody Height (8302-2)66.5 [in_us] 04/03/2024 02:48 PMBody Weight (06725-5)235.2 [lb_av]Body Mass Index (33895-6) 37.39 kg/m204/04/2024 01:02 PMBody Weight (30518-1)234.4 [lb_av]Body Mass Index (49805-8)37.26 kg/m204/16/2024 10:14 AMTemperature (8310-5)98.2 [degF]Oxygen Saturation (60677-7)98 %04/22/2024 07:50 AMTemperature (8310-5)97.9 [degF]Oxygen Saturation (00131-4)96 %Respiratory Rate (9279-1)18 /minHeart Rate (8867-4)71 /minBlood Pressure Systolic (8480-6)124 mm[Hg]Blood Pressure Diastolic (8462-4) 80 mm[Hg]04/28/2024 02:50 PMBody Weight (04784-5)224 [lb_av]Body Mass Index (40238-4)35.61 kg/m205/23/2024 10:09 PMTemperature (8310-5)98.1 [degF]Oxygen Saturation (69826-2)98 %Respiratory Rate (9279-1)16 /minHeart Rate (8867-4)78 /minBlood Pressure Systolic (8480-6)110 mm[Hg]Blood Pressure Diastolic (8462-4) 72 mm[Hg]05/24/2024 10:24 AMBody Weight (45577-3)230 [lb_av]Body Mass Index (46301-1)36.56 kg/m206/20/2024 11:01 AMBody Weight (00025-3)230 [lb_av]Body Mass Index (13330-3)36.56 kg/m206/22/2024 01:16 AMTemperature (8310-5)98.2 [degF] Oxygen Saturation (58494-9)98 %Heart Rate (8867-4)81 /minBlood Pressure Systolic (8480-6)122 mm[Hg]Blood Pressure Diastolic (8462-4)78 mm[Hg]06/25/2024 02:02 PM Respiratory Rate (9279-1)20 /min07/24/2024 06:26 PMTemperature (8310-5)98.2 [degF]Oxygen Saturation (04287-4)99 %Respiratory Rate (9279-1)16 /minHeart Rate (8867-4)95 /minBlood Pressure Systolic (8480-6)130 mm[Hg]Blood Pressure Diastolic (8462-4)74 mm[Hg]07/27/2024 02:19 PMBody Weight (96181-6)240 [lb_av] Body Mass Index (25225-4)38.15 kg/m208/23/2024 07:04 PMTemperature (8310-5)98.2 [degF]Oxygen Saturation (19577-3)98 %Respiratory Rate (9279-1)16 /minHeart Rate (8867-4)72 /minBlood Pressure Systolic (8480-6)130 mm[Hg]Blood Pressure Diastolic (8462-4)80 mm[Hg]12/24/2024 02:42 PMBody Weight (72512-9)245 [lb_av] Body Mass Index (73593-1)38.95 kg/m211/21/2024 06:55 PMTemperature (8310-5)98.1 [degF]Oxygen Saturation (04113-7)98 %Respiratory Rate (9279-1)16 /minHeart Rate (8867-4)78 /minBlood Pressure Systolic (8480-6)117 mm[Hg]Blood Pressure Diastolic (8462-4)60 mm[Hg]11/21/2024 02:58 PMBody Weight (28164-9)242.5 [lb_av] Body Mass Index (85511-4)38.55 kg/m210/25/2024 12:02 PMTemperature (8310-5)98.2 [degF]Oxygen Saturation (60176-3)100 %Respiratory Rate (9279-1)18 /minHeart Rate (8867-4)72 /minBlood Pressure Systolic (8480-6)123 mm[Hg]Blood Pressure Diastolic (8462-4)93 mm[Hg]10/22/2024 03:13 PMBody Weight (73069-6)241 [lb_av] Body Mass Index (66258-7)38.31 kg/m210/13/2024 09:51 AMTemperature (8310-5)98 [degF]09/20/2024 04:43 PMTemperature (8310-5)98.1 [degF]Oxygen Saturation (48999-0)97 %Respiratory Rate (9279-1)18 /minHeart Rate (8867-4)76 /minBlood Pressure Systolic (8480-6)147 mm[Hg]Blood Pressure Diastolic (8462-4)70 mm[Hg] 08/25/2024 05:12 PMTemperature (8310-5)98.3 [degF]Respiratory Rate (9279-1)18 /minHeart Rate (8867-4)75 /minBlood Pressure Systolic (8480-6)158 mm[Hg]Blood Pressure Diastolic (8462-4)98 mm[Hg]12/28/2024 06:04 PMTemperature (8310-5)98.1 [degF]Oxygen Saturation (60044-3)99 %Respiratory Rate (9279-1)16 /minHeart Rate (8867-4)84 /minBlood Pressure Systolic (8480-6)102 mm[Hg]Blood Pressure Diastolic (8462-4)57 mm[Hg]01/21/2025 01:38 PMTemperature (8310-5)97.6 [degF] Respiratory Rate (9279-1)18 /minHeart Rate (8867-4)72 /minBlood Pressure Systolic (8480-6)130 mm[Hg]Blood Pressure Diastolic (8462-4)58 mm[Hg]01/21/2025 02:25 PMBody Weight (56629-8)253 [lb_av]Body Mass Index (15844-8)40.22 kg/m2 01/25/2025 02:07 PMTemperature (8310-5)98.1 [degF]01/25/2025 04:02 PMTemperature (8310-5)98.1 [degF]01/26/2025 05:15 AMTemperature (8310-5)97.9 [degF]01/26/2025 08:42 AMTemperature (8310-5)97.6 [degF]01/26/2025 06:33 PMTemperature (8310-5) 97.2 [degF]01/27/2025 06:41 AMTemperature (8310-5)97.6 [degF]01/27/2025 08:45 AM Temperature (8310-5)98 [degF]01/27/2025 04:06 PMTemperature (8310-5)98.2 [degF] 01/28/2025 02:21 AMTemperature (8310-5)98 [degF]01/28/2025 08:33 AMTemperature (8310-5)98.2 [degF]02/15/2025 12:12 PMTemperature (8310-5)98 [degF]02/23/2025 02:41 PMBody Weight (84969-3)248.5 [lb_av]Body Mass Index (95496-9)39.5 kg/m2 Social History No smoking Hx information available Encounters Type CPT Code Date Location Provider Indication s encounter report 12/23/2022 12:00 Rodney MCKINNEY Advance Directives Directive Description Verification Date Supporting Document(s) Other Directive
--- OUTSIDE RECORDS SUMMARY | 2025-02-24 07:01 | XMS_ITS | Clinical Summary ---
Author Organization [facility] Address [address] [place] [address] Phone Care Team Providers Care Lodge Attendant Name Role Phone Rickey Askew MD Primary Care Prov ider Social History Tobacco UseTypesPacks/DayYears UsedDateSmoking Tobacco: Never Assessed CommentsUnknownSex and Gender InformationValueDate RecordedSex Assigned at Not on fileLegal BydPrehhs48/26/2022 11:26 AM ESTGender IdentityNot on file Sexual OrientationNot on file Last Filed Vital Signs Vital SignReadingTime TakenCommentsBlood Fmpjqulo421/6505 1:10 PM EDT Jepqh559908/28/2021 1:10 PM CBIRihgscmzckw69.8 ??C (98.2 ??F)08/28/2021 1:10 PM EDTRespiratory Qirv714708/28/2021 1:10 PM EDTOxygen Oaaognmfgh95%08/28/2021 1:10 PM EDTInhaled Oxygen Concentration--Zeanyg97.6 kg (217 lb 6 oz)08/28/2021 1:10 PM PREMhigox867 cm (5' 2.6 )08/28/2021 1:10 PM EDTBody Mass Ykncd009208/28/2021 1:10 PM EDT Plan of Treatment Not on file Care Teams Team MemberRelationshipSpecialtyStart DateEnd Date Rickey Askew MD [address] [place] [address] PCP - General1/1/22
--- OUTSIDE RECORDS SUMMARY | 2025-02-24 07:01 | XMS_ITS | Continuity of Care Document ---
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 vroxgfF85.411 09/13/2021ctiveEssential (primary) mjkrfbhqnaydY2801/ctiveAnxiety disorder, ybcfqzuzsapZ80.910ctiveTinea elvenewN40.1053Active Difficulty in walking, not elsewhere cqxppdahtuV92.209ctiveVitamin D deficiency, hkkqksnmfpjS56.909ctiveInsomnia, otiyyqmjholQ73.00 01/22/2023ctiveMuscle weakness (generalized)M62.8109ctiveCognitive communication mpnfhwtI33.18963ctivePersonal history of malignant neoplasm of ncjnpqE98.309/ctivePure hypercholesterolemia, unspecified E78.0002/2ActiveIron deficiency anemia, dtpavbjolyeL83.902ctive Chronic pain lewhkallI01.401ctiveLimitation of activities due to mtandeobxlN99.614ActiveUrinary tract infection, site not iiupgwvgfO19.0 12/24/2022ctiveType 2 diabetes mellitus with diabetic chronic kidney disease E11.22055ActiveEncounter for kzmdvodoxcdgM5047/5ActiveHyperkalemia E87.5105Active Results Test Result Date/Time Value / Unit Interp. Refere nce Range Blood chemistry[507610851] Glucose [Mass/volume] in Serum or Plasma [2345-7] [...] 6 hours as needed for pain (2 LZWP=2548DB) ORAL 1.0 6.0 h 05/16/2023 Activealprazolam 0.5 [...] PRN, FOR FEVER oral1.06.0 4ActiveTussin CF Cough-Cold (oyqpiowwspmqj-qz-fbvlachllqc) 5-10-100 mg/5 mL liquid (Tussin CF Cough-Cold (udeuuuyushaus-jv-nfkprpynplv)) 10ml, oral, Every 4 Hours - PRN, cough/ congestionoral1.04.0 4Active Mucinex DM (dextromethorphan-guaifenesin) 30-600 mg tablet extended release 12 hr (Mucinex DM (dextromethorphan-guaifenesin))1 tablet, oral, Twice A Day, cough/congestionoral1.012.0 h01//717981/5ActivePro-Stat AWC (amino acids-protein hydrolys) 17-100 gram-kcal/30 mL liquid (Pro-Stat AWC (amino acids -protein hydrolys))30 ml, oral, Twice A Dayoral1.012.0 h05ActiveSpikevax 7085-3646(12y up)(PF) (covid vac 24-25(12up)(mod)(pf)) 50 mcg/0.5 mL syringe (Spikevax 7678-6206(12y up)(PF) (covid vac 24-25(12up)(mod)(pf)))0.5ml, intramuscular, Once - One Timeintramuscular1.004//638954/5Active buspirone 5 mg tablet (buspirone)5 mg, oral, Twice A Dayoral1.012.0 h009/15/2024 Anxiety disorder, unspecifiedActivesimvastatin 20 mg tablet (simvastatin)1 tablet, oral, Once A Day, hyperlipidemiaoral1.01.0 d05ActiveSPS (with sorbitol) (sodium polystyrene sulf-sorbtl) 15-20 gram/60 mL suspension (SPS (with sorbitol) (sodium polystyrene sulf-sorbtl))Give 30mL, oral, STAT - Immediately, For elevated K+ Laboratory results.oral1.009//871356/05/2024 Muscle weakness (generalized)ActiveFluzone High-Dose (PF) (flu vacc kp5436-37(65yr up)-pf) 180 mcg/0.5 mL syringe (Fluzone High-Dose (PF) (flu vacc fj2803-40(65yr up)-pf))0.5ml, intramuscular, Once - One Time intramuscular1.010/3731015Activesodium polystyrene sulfonate 15 gram powder (sodium polystyrene sulfonate)30 grams, oral, Once - One Timeoral1.0 /10/2024HyperkalemiaActiveKionex (with sorbitol) (sodium polystyrene sulf-sorbtl) 15-20 gram/60 mL suspension (Kionex (with sorbitol) (sodium polystyrene sulf-sorbtl))15grams, oral, Once - One Timeoral1.0105ActiveKionex (with sorbitol) (sodium polystyrene sulf-sorbtl) 15-20 gram/60 mL suspension (Kionex (with sorbitol) (sodium polystyrene sulf-sorbtl)) 30 grams, oral, Once - One Timeoral1.01051HyperkalemiaActive Mnexspike 1821-4780 (PF) (covid vac 25-26(12up)(mod)(pf)) 10 mcg/0.2 mL syringe (Mnexspike 0047-1616 (PF) (covid vac 25-26(12up)(mod)(pf)))0.2 mL, intramuscular, Once [...] [degF] 03/23/2024 09:18 PMTemperature (8310-5)98.3 [degF]Oxygen Saturation (50518-0)96 %Respiratory Rate (9279-1)18 /minHeart Rate (8867-4)80 /minBlood Pressure Systolic (8480-6)126 mm[Hg]Blood Pressure Diastolic (8462-4)80 mm[Hg]03/23/2024 07:53 AMTemperature (8310-5)98.3 [degF]03/22/2024 08:20 AMTemperature (8310-5) 98.3 [degF]03/21/2024 12:49 PMBody Weight (38530-9)233 [lb_av]Body Mass Index (16691-2)37.04 kg/m203/20/2024 10:18 AMBody Weight (11497-5)234 [lb_av]Body Mass Index (84082-6)37.2 kg/m203/19/2024 11:41 AMBody Weight (53673-5)237 [lb_av] Body Mass Index (08059-3)37.68 kg/m203/18/2024 12:16 PMBody Weight (39706-4)224 [lb_av]Body Mass Index (03395-9)35.61 kg/m202/21/2024 01:32 PMBody Weight (98991-3)225.5 [lb_av]Body Mass Index (29158-9)35.85 kg/m201/30/2024 12:23 AM Temperature (8310-5)98 [degF]01/29/2024 06:44 PMTemperature (8310-5)98.1 [degF] 01/29/2024 08:44 AMTemperature (8310-5)98.2 [degF]01/29/2024 12:52 AMTemperature (8310-5)97.5 [degF]01/28/2024 09:29 PMTemperature (8310-5)98.2 [degF]01/28/2024 03:46 PMBody Weight (92844-9)223 [lb_av]Body Mass Index (39089-9)35.45 kg/m2 01/28/2024 11:43 AMTemperature (8310-5)98.3 [degF]01/22/2024 10:42 PMOxygen Saturation (42927-7)98 %Respiratory Rate (9279-1)16 /minHeart Rate (8867-4)67 /minBlood Pressure Systolic (8480-6)155 mm[Hg]Blood Pressure Diastolic (8462-4) 68 mm[Hg]12/22/2023 12:49 AMOxygen Saturation (09247-7)98 %Respiratory Rate (9279-1)18 /minHeart Rate (8867-4)63 /minBlood Pressure Systolic (8480-6)140 mm[Hg]Blood Pressure Diastolic (8462-4)96 mm[Hg]11/21/2023 10:48 PMOxygen Saturation (52638-4)96 %Respiratory Rate (9279-1)16 /minHeart Rate (8867-4)85 /minBlood Pressure Systolic (8480-6)126 mm[Hg]Blood Pressure Diastolic (8462-4) 81 mm[Hg]10/25/2023 10:20 PMOxygen Saturation (65638-8)97 %Respiratory Rate (9279-1)16 /minHeart Rate (8867-4)70 /minBlood Pressure Systolic (8480-6)159 mm[Hg]Blood Pressure Diastolic (8462-4)72 mm[Hg]09/26/2023 12:19 PMOxygen Saturation (29470-3)96 %Respiratory Rate (9279-1)16 /minHeart Rate (8867-4)80 /minBlood Pressure Systolic (8480-6)119 mm[Hg]Blood Pressure Diastolic (8462-4) 54 mm[Hg]09/17/2023 10:10 PMOxygen Saturation (46847-3)96 %Respiratory Rate (9279-1)16 /minHeart Rate (8867-4)72 /minBlood Pressure Systolic (8480-6)126 mm[Hg]Blood Pressure Diastolic (8462-4)71 mm[Hg]09/16/2023 09:30 PMOxygen Saturation (65013-9)97 %Respiratory Rate (9279-1)16 /minHeart Rate (8867-4)80 /minBlood Pressure Systolic (8480-6)122 mm[Hg]Blood Pressure Diastolic (8462-4) 70 mm[Hg]09/13/2023 01:24 PMOxygen Saturation (19200-9)96 %Respiratory Rate (9279-1)18 /minHeart Rate (8867-4)76 /minBlood Pressure Systolic (8480-6)124 mm[Hg]Blood Pressure Diastolic (8462-4)77 mm[Hg]09/12/2023 11:43 PMRespiratory Rate (9279-1)14 /minHeart Rate (8867-4)76 /minBlood Pressure Systolic (8480-6) 132 mm[Hg]Blood Pressure Diastolic (8462-4)78 mm[Hg]09/08/2023 09:33 AMOxygen Saturation (67742-2)96 %12/23/2022 12:00 AMBody Height (8302-2)66.5 [in_us] 04/03/2024 02:48 PMBody Weight (02074-0)235.2 [lb_av]Body Mass Index (64612-0) 37.39 kg/m204/04/2024 01:02 PMBody Weight (54640-4)234.4 [lb_av]Body Mass Index (60291-1)37.26 kg/m204/16/2024 10:14 AMTemperature (8310-5)98.2 [degF]Oxygen Saturation (93477-6)98 %04/22/2024 07:50 AMTemperature (8310-5)97.9 [degF]Oxygen Saturation (17668-0)96 %Respiratory Rate (9279-1)18 /minHeart Rate (8867-4)71 /minBlood Pressure Systolic (8480-6)124 mm[Hg]Blood Pressure Diastolic (8462-4) 80 mm[Hg]04/28/2024 02:50 PMBody Weight (35359-3)224 [lb_av]Body Mass Index (25066-9)35.61 kg/m205/23/2024 10:09 PMTemperature (8310-5)98.1 [degF]Oxygen Saturation (87740-2)98 %Respiratory Rate (9279-1)16 /minHeart Rate (8867-4)78 /minBlood Pressure Systolic (8480-6)110 mm[Hg]Blood Pressure Diastolic (8462-4) 72 mm[Hg]05/24/2024 10:24 AMBody Weight (49689-6)230 [lb_av]Body Mass Index (17787-2)36.56 kg/m206/20/2024 11:01 AMBody Weight (44321-6)230 [lb_av]Body Mass Index (89757-1)36.56 kg/m206/22/2024 01:16 AMTemperature (8310-5)98.2 [degF] Oxygen Saturation (45144-2)98 %Heart Rate (8867-4)81 /minBlood Pressure Systolic (8480-6)122 mm[Hg]Blood Pressure Diastolic (8462-4)78 mm[Hg]06/25/2024 02:02 PM Respiratory Rate (9279-1)20 /min07/24/2024 06:26 PMTemperature (8310-5)98.2 [degF]Oxygen Saturation (29478-6)99 %Respiratory Rate (9279-1)16 /minHeart Rate (8867-4)95 /minBlood Pressure Systolic (8480-6)130 mm[Hg]Blood Pressure Diastolic (8462-4)74 mm[Hg]07/27/2024 02:19 PMBody Weight (59597-3)240 [lb_av] Body Mass Index (11646-0)38.15 kg/m208/23/2024 07:04 PMTemperature (8310-5)98.2 [degF]Oxygen Saturation (73081-0)98 %Respiratory Rate (9279-1)16 /minHeart Rate (8867-4)72 /minBlood Pressure Systolic (8480-6)130 mm[Hg]Blood Pressure Diastolic (8462-4)80 mm[Hg]12/24/2024 02:42 PMBody Weight (33166-0)245 [lb_av] Body Mass Index (18394-3)38.95 kg/m211/21/2024 06:55 PMTemperature (8310-5)98.1 [degF]Oxygen Saturation (95717-9)98 %Respiratory Rate (9279-1)16 /minHeart Rate (8867-4)78 /minBlood Pressure Systolic (8480-6)117 mm[Hg]Blood Pressure Diastolic (8462-4)60 mm[Hg]11/21/2024 02:58 PMBody Weight (63973-9)242.5 [lb_av] Body Mass Index (88091-9)38.55 kg/m210/25/2024 12:02 PMTemperature (8310-5)98.2 [degF]Oxygen Saturation (00871-5)100 %Respiratory Rate (9279-1)18 /minHeart Rate (8867-4)72 /minBlood Pressure Systolic (8480-6)123 mm[Hg]Blood Pressure Diastolic (8462-4)93 mm[Hg]10/22/2024 03:13 PMBody Weight (22672-2)241 [lb_av] Body Mass Index (83753-4)38.31 kg/m210/13/2024 09:51 AMTemperature (8310-5)98 [degF]09/20/2024 04:43 PMTemperature (8310-5)98.1 [degF]Oxygen Saturation (81266-4)97 %Respiratory Rate (9279-1)18 /minHeart Rate (8867-4)76 /minBlood Pressure Systolic (8480-6)147 mm[Hg]Blood Pressure Diastolic (8462-4)70 mm[Hg] 08/25/2024 05:12 PMTemperature (8310-5)98.3 [degF]Respiratory Rate (9279-1)18 /minHeart Rate (8867-4)75 /minBlood Pressure Systolic (8480-6)158 mm[Hg]Blood Pressure Diastolic (8462-4)98 mm[Hg]12/28/2024 06:04 PMTemperature (8310-5)98.1 [degF]Oxygen Saturation (47560-7)99 %Respiratory Rate (9279-1)16 /minHeart Rate (8867-4)84 /minBlood Pressure Systolic (8480-6)102 mm[Hg]Blood Pressure Diastolic (8462-4)57 mm[Hg]01/21/2025 01:38 PMTemperature (8310-5)97.6 [degF] Respiratory Rate (9279-1)18 /minHeart Rate (8867-4)72 /minBlood Pressure Systolic (8480-6)130 mm[Hg]Blood Pressure Diastolic (8462-4)58 mm[Hg]01/21/2025 02:25 PMBody Weight (04174-0)253 [lb_av]Body Mass Index (25934-9)40.22 kg/m2 01/25/2025 02:07 PMTemperature (8310-5)98.1 [degF]01/25/2025 04:02 PMTemperature (8310-5)98.1 [degF]01/26/2025 05:15 AMTemperature (8310-5)97.9 [degF]01/26/2025 08:42 AMTemperature (8310-5)97.6 [degF]01/26/2025 06:33 PMTemperature (8310-5) 97.2 [degF]01/27/2025 06:41 AMTemperature (8310-5)97.6 [degF]01/27/2025 08:45 AM Temperature (8310-5)98 [degF]01/27/2025 04:06 PMTemperature (8310-5)98.2 [degF] 01/28/2025 02:21 AMTemperature (8310-5)98 [degF]01/28/2025 08:33 AMTemperature (8310-5)98.2 [degF]02/15/2025 12:12 PMTemperature (8310-5)98 [degF]02/23/2025 02:41 PMBody Weight (20065-9)248.5 [lb_av]Body Mass Index (73508-5)39.5 kg/m2 Social History No smoking Hx information available Encounters Type CPT Code Date Location Provider Indication s encounter report 12/23/2022 12:00 Rodney MCKINNEY Advance Directives Directive Description Verification Date Supporting Document(s) Other Directive
--- OUTSIDE RECORDS SUMMARY | 2025-02-24 07:01 | XMS_ITS | Patient Health Record ---
Author Organization [facility] Address [address] [place] [address] [place] [address] Care Team Providers Care Electronic Installer Name Role Phone Mary Rodriguez Primary Care Provider Gerardo Hernandez Unavailable [phone] Reason For Referral No Information Encounters Encounter Location Date Provider Diagnosis [facility] [address] [place] [address] 04/08/[address] [id number] [place] [address]/[address] [id number]/Gerardo Linn Plan Of Treatment No Information Insurance Providers Payer Name Payer Address Payer Phone Subscriber Number Group Number Insured Name Patient Relationship to Insured Coverage Start Date Coverage End Date [facility] [address] [address] [place] [address] [id number] huang - patient is the [id number] 2024[facility] D[facility] of Job Fmly [address] [place], [place] [id number], BarbaraSelf - patient is the insured
--- OUTSIDE RECORDS SUMMARY | 2025-02-24 07:04 | XMS_ITS | CCD ---
Author Organization [facility] Care Team Providers Care Radio Repairer Domestic Name Role Phone Rickey Askew Primary Care Physician Eva Beard Unavailable Unavailable Rickey Askew MD Unavailable [phone] Rickey Askew MD Primary Care Provider [phone] DO Senthil Caldera II Attending Provider MD Mary Rodriguez Primary Care Provider [phone] MD Mary Rodriguez Primary Care Provider DO Senthil Caldera II Attending Provider [phone] Senthil Caldera Attending Unavailable Verenice, Senthil Attending Unavailable Senthil Caldera Attending Unavailable Senthil Caldera Admitting Unavailable Nohemy WAREHOUSE ORDER FILLER-JOHNNA Moreland Attending UnavailSammy Orosco Attending Unavailable Sammy QUEZADA Attending Unavailable Sammy QUEZADA Attending Unavailable Zaheer Sloan Admitting Unavailable Zaheer Sloan Attending Unavailable Wyatt Murray Attending Unavailable Mariia LOPEZ Admitting Unavailable Georgina, Gavino T Consulting Unavailable Lugo, DO Gavino T Consulting Unavailable MARCEL ALVAREZ Consulting Unavailable Lugo, Gavino T Consulting Unavailable [...] MD Mary Rodriguez Primary Care Provider Verenice [facility], DO Ndiaye Attending Provider David Calderaothy Referring Unavailable Adamowicz, Senthil Attending Unavailable Unallocated MD, Noms Provider Primary Care Provi ramone Unallocated MD, Noms Provider Primary Care Provi ramone Mary Rodriguez MD Primary Care Provider [phone] [facility] DO, Senthil Attending Provider Mary Rodriguez MD Primary Care Provider [facility] DO, Senthil Attending Provider Adamowicz [facility], Senthil Admitting Unavai lable [facility], Senthil Attending Unavai lable [place] Primary [facility] Un[facility] S[facility]il Admitting Unavai lable [facility] Senthil Attending Unavai lable Jennifer, [facility] Primary Care Unavailable [facility], Senthil Admitting Unavai lable Adamowicz [facility], Senthil Attending Unavai lable Jennifer, [facility] Primary Care Unavailable [facility], Senthil Attending Unavai lable [facility], Senthil Admitting Unavai lable [place], [facility] Primary Care Unavailable Adamowicz, Senthil Attending [...] Unavailable Adamowicz, Senthil Attending Unavailable Allergies Allergy ClassificationReported Allergen(s)Allergy TypeDate of OnsetReaction(s) FacilityBee/Wasp/Ant Venom (1 source)Bee/Wasp/Ant venom; Translations: [Bee Stings][facility]stance [facility] RepositoryPenicillins (antibiotic) (1 source)Penicillins; Translations: [penicillins]Drug [facility]ergy[facility] RepositorySulfonamides (antibiotic) (1 source)Sulfonamides (Antibiotic); Translations: [sulfa drugs]Drug Allergy [facility] (20 sources)Bee/Wasp/Ant venom; Translations: [Bee Stings]Drug allergyDyspnea (finding)[facility] (20 sources)Penicillins; Translations: [penicillins]Drug [id number] Dyspnea (finding), Shortness of breath, UnknownA[facility] (20 sources)Sulfonamides (Antibiotic); Translations: [sulfa drugs]Drug allergy Dyspnea (finding)[facility] (10 sources)Penicillin GDrug Cfzjteb37-76-7175[facility] (10 sources)Sulfonamides (Antibiotic)Drug Tnwgqdj99-90-4680Korbjmoop of breath [facility] Medications Current Medications MedicationDrug Class(es)DatesSig (Normalized)Sig (Original)acetaminophen 500 mg oral tablet (20 sources)Start: 35-45-2743emnf 2 tablets by mouth every six hours acetaminophen 500 mg Tab 1,000 mg = 2 tab(s), Oral, q6hr, Refills(s) 0 Start Date: 11/13/22 Status: Ordered Repeat number: 1anastrozole 1 mg oral tablet (20 sources)Aromatase InhibitorStart: 23-08-8828fyqv 1 tablet by mouth once dailyanastrozole 1 mg Tab 1 mg = 1 tab(s), Oral, Daily, # 30 tab(s), Refills(s) 11, called to pharmacy (Rx) Start Date: 10/29/22 Status: Ordered Quantity: 30.0 Unit: tab(s) Repeat number: 12busPIRone hydrochloride 5 mg oral tablet (17 sources)Start: 18-96-7733bdzz 1 tablet by mouth twice dailybusPIRone 5 mg Tab 5 mg = 1 tab(s), Oral, BID, # 270 tab(s), Refills(s) 0 Start Date: 05/01/23 Status: Ordered Quantity: 270.0 Unit: tab(s) Repeat number: 1cephalexin 500 mg oral capsule (2 sources)Cephalosporin AntibacterialStart: 12-19-2022 End: 64-31-9956biho 1 capsule by mouth four times dailyKeflex 500 mg Cap 500 mg = 1 cap(s), Oral, QID, X 7 day(s), # 28 cap(s), Refills(s) 0, Pharmacy: [facility], 167.6, cm, 12/19/22 20:43:00 EDT, Height/Length Dosing, 87.1, kg, 12/20/2319:43:00 EDT, Weight Dosing Start Date: 12/19/22 Stop Date: 12/26/22 Status: Orderedcholecalciferol 0.05 mg oral tablet (10 sources)Vitamin DStart: 86-92-2779uypn 1 tablet by mouth in the morning cholecalciferol (Vitamin D-3) 50 MCG (1999 UT) tablet Take 2,000 Units by mouth in the morning. 12/14/2022 ActiveCinnamon Preparation (19 sources)Non-Standardized Food Allergenic ExtractStart: 78-20-1842Cpgvscsc 1,000 mg, Daily, Refills(s) 0 Start Date: 09/07/21 Status: Ordereddocusate sodium 100 mg oral tablet (17 sources)Start: 10-55-1460umji 100 mg by mouth twice dailyColace 100 mg, Oral, BID, Refills(s) 0 Start Date: 05/01/23 Status: Ordered Repeat number: 1 exemestane 25 mg oral tablet (15 sources)Aromatase InhibitorStart: 62-11-9539fvtd 1 tablet by mouth once dailyexemestane 25 mg Tab 25 mg = 1 tab(s), Oral, Daily, # 30 tab(s), Refills(s) 11, Pharmacy: [facility], 167.6, cm, 06/12/23 11:02:00 EST, Height/Length Dosing, 90.7, kg, 06/12/23 11:02:00 EST, Weight Dosing Start Date: 06/13/23 Status: Ordered Quantity: 30.0 Unit: tab(s) Repeat number: 12 I ndications: Malignant neoplasm of unspecified site of unspecified female breast; ferrous sulfate 325 mg oral tablet (14 sources)Start: 27-60-2704qefw 1 tablet by mouth once dailyferrous sulfate 325 mg Tab 325 mg = 1 tab(s), Oral, Daily, Refills(s) 0 Start Date: 01/09/24 Status:Ordered Repeat number: 1Fish Oils (20 sources)Start: 48-16-6991sqkj 1 capsule by mouth once dailyFish Oil 1000 mg oral capsule 1,000 mg = 1 cap(s), Oral, Daily, Refills(s) 0 Start Date: 07/03/21 Status: Orderedfurosemide 40 mg oral tablet (20 sources)Loop DiureticStart: 41-50-8826rutx 1 tablet by mouth once daily furosemide 40 mg Tab 40 mg = 1 tab(s), Oral, Daily, Refills(s) 0 Start Date: 07/03/21 Status: OrderedKisqali (200 mg daily dose) (20 sources)Start: 59-59-2798Kmvushf (200 mg daily dose) 200 mg, TID, Refills(s) 0 Start Date: 09/07/21 Status: OrderedClaritin (17 sources)Start: 63-48-8258Iqlpsnaa 10 mg, Refills(s) 0 Start Date: 05/01/23 Status: Ordered Repeat number: 1Start: 46-49-5843Etftdljk 10 mg, Refills(s) 0 Start Date: 05/01/23 Status: Orderedmelatonin 5 mg oral tablet (20 sources)Start: 85-77-5798cdnl 1 tablet by mouth once daily at bedtime as neededmelatonin 5 mg oral tablet 5 mg = 1 tab(s), Oral, Once a day (at bedtime), PRN for insomnia, # 60 tab(s), Refills(s) 0 Start Date: 11/13/22 Status: Ordered Quantity: 60.0 Unit: tab(s) Repeat number: 1ondansetron 8 mg oral tablet (20 sources)Serotonin-3 Receptor AntagonistStart: 45-68-6757zlcz 1 tablet by mouth every eight hours as needed for nauseaondansetron 8 mg Tab 8 mg, Oral, q8hr, PRN Nausea, # 30 tab(s), Refills(s) 3, Pharmacy: [facility], 162.5, cm, 08/10/21 12:38:00 EDT, Height/Length Dosing, 96.5, kg, 08/10/21 12:38:00EDT, Weight Dosing Start Date: 08/24/21 Status: OrderedoxyCODONE hydrochloride 5 mg oral tablet (11 sources)Opioid AgonistStart: 12-17-2022 End: 09-09-2221ffgx 1 tablet by mouth every six hours as needed for pain oxyCODONE (Roxicodone) 5 MG immediate release tablet Take 5 mg by mouth every 6 (six) hours if needed for severe pain. 12/17/2022 ActiveMiralax (17 sources)Osmotic LaxativeStart: 75-91-2806qykl 17 g by mouth once daily MiraLax 17 gm, Oral, Daily, Refill(s) 0 Start Date: 05/01/23 Status: Ordered Repeat number: 1Start: 00-79-7527jmnz 17 g by mouth once dailyMiraLax 17 gm, Oral, Daily, Refill(s) 0 Start Date: 05/01/23 Status: Orderedsimvastatin 40 mg oral tablet (20 sources)HMG-CoA Reductase InhibitorStart: 59-58-2494bbwz 1 tablet by mouth once daily at bedtimesimvastatin 40 mg Tab 40 mg = 1 tab(s), Oral, Once a day (at bedtime), Refills(s) 0 Start Date: 07/03/21 Status: Ordered Repeat number: 1 traMADol hydrochloride 50 mg oral tablet (17 sources)Opioid AgonistStart: 78-53-9222dtpf 50 mg by mouth every six hours tramadol 50 mg, Oral, q6hr, Refills(s) 0 Start Date: 05/01/23 Status: Ordered Repeat number: 1vitamin b12 1 mg oral tablet (10 sources)Vitamin I17Nzhyj: 98-45-3140yzdr 1 tablet by mouth in the morning cyanocobalamin (Vitamin B-12) 1000 MCG tablet Take 1,000 mcg by mouth in the morning. 09/27/2022 ActiveVitamin B12 1000 mcg Tab (20 sources)Start: 43-38-8331acza 1 tablet by mouth once dailyVitamin B12 1000 mcg Tab 1,000 mcg = 1 tab(s), Oral, Daily, # 30 tab(s), Refills(s) 11, Pharmacy: [facility], 162, cm, 09/08/22 15:14:00 EDT, Height/Length Dosing, 96.4, kg, 09/27/22 13:43:00 EDT, Weight Dosing Start Date: 09/27/22 Status: Ordered Quantity: 30.0 Unit: tab(s) Repeat number: 12 Indications: Malignant neoplasm of unspecified site of unspecified female breast;Start: 18-85-7353jkgx 1 tablet by mouth once dailyVitamin B12 1000 mcg Tab 1,000 mcg = 1 tab(s), Oral, Daily, # 30 tab(s), Refills(s) 11, Pharmacy: [facility], 162, cm, 09/08/22 15:14:00 EDT, Height/Length Dosing, 96.4, kg, 09/27/22 13:43:00 EDT, Weight Dosing Start Date: 09/27/22 Status: Ordered Quantity: 30.0 Unit: tab(s) Repeat number: 12 Indication: Malignant neoplasm of unspecified site of unspecified female breastStart: 16-19-8623stjz 1 tablet by mouth once dailyVitamin B12 1000 mcg Tab 1,000 mcg = 1 tab(s), Oral, Daily, # 30 tab(s), Refills(s) 11, Pharmacy: [facility], 162, cm, 09/08/22 15:14:00 EDT, Height/Length Dosing, 96.4, kg, 09/27/22 13:43:00 EDT, Weight Dosing Start Date: 09/27/22 Status: OrderedVitamin D3 2000 intl units oral tablet (20 sources)Start: 54-91-1883ofcg 1 tablet by mouth once dailyVitamin D3 2000 intl units oral tablet 50 mcg = 1 tab(s), Oral, Daily, # 90 tab(s), Refills(s) 4, Pharmacy: [facility], 167, cm, 11/01/22 20:02:00 EDT, Height/Length Dosing, 90.3, kg,11/01/22 20:02:00 EDT, Weight Dosing Start Date: 12/14/22 Status: Ordered Quantity: 90.0 Unit: tab(s) Repeat number: 5Start: 52-89-8820tnar 1 tablet by mouth once dailyVitamin D3 2000 intl units oral tablet 50 mcg = 1 tab(s), Oral, Daily, # 90 tab(s), Refills(s) 4, Pharmacy: [facility], 167, cm, 11/01/22 20:02:00 EDT, Height/Length Dosing, 90.3, kg,11/01/22 20:02:00 EDT, Weight Dosing Start Date: 12/14/22 Status: Ordered Completed/Discontinued Medications MedicationDrug Class(es)DatesSig (Normalized)Sig (Original)ergocalciferol 1.25 mg oral capsule (2 sources)Provitamin D2 CompoundStart: 69-08-2508pafc 1 capsule by mouth once dailyergocalciferol 50,000 intl units Cap 50,000 International_Unit = 1 cap(s), Oral, q7day, x 8 wks then 2000 units daily, # 7 cap(s), Refills(s) 0, Pharmacy: [facility], 167, cm, 11/01/22 20:02:00 EDT, Height/Length Dosing, 90.3, kg, 11/01/22 20:02:00 EDT, Weight Dosing Start Date: 11/04/22 Status: OrderedStart: 95-26-1645ywodmljajgvfyl 50,000 intl units Cap 50,000 International_Unit = 1 cap(s), Oral, q7day, # 7 cap(s),Refills(s) 0, Pharmacy: [facility], 167, cm, 11/01/22 20:02:00 EDT, Height/Length Do sing, 90.3, kg, 11/01/22 20:02:00 EDT, Weight Dosing Start Date: 11/04/22 Status: OrderedInsulin Lispro (3 sources)Insulin AnalogStart: 12-23-2022 End: 70-59-5279Gefljzw Lispro Sliding Scale 0-10 Unit(s), Injection-Insulin, SubCutaneous, Start date 12/23/22 7:30:00 EDT Start Date: 12/23/22 Stop Date: 12/23/22 Status: CompletedStart: 12-22-2022 End: 43-62-1646Mblrihn Lispro Sliding Scale 0-10 Unit(s), Injection-Insulin, SubCutaneous, Start date 12/22/22 16:30:00 EDT Start Date: 12/22/22 Stop Date: 12/22/22 Status: CompletedStart: 12-22-2022 End: 91-51-7971Ehmpdte Lispro Sliding Scale 0-10 Unit(s), Injection-Insulin, SubCutaneous, Start date 12/22/22 11:30:00 EDT Start Date: 12/22/22 Stop Date: 12/22/22 Status: Completedlisinopril 10 mg oral tablet (20 sources)Angiotensin Converting Enzyme InhibitorStart: 12-23-2022 End: 17-74-7995mgztxtpwvl 10 mg Tab 10 mg = 1 tab(s), Tab, Oral, Start date 12/23/22 9:00:00 EDT, 12/20/22 20:32:00 EDT Start Date: 12/23/22 Stop Date: 12/23/22 Status: CompletedStart: 11-04-2022 End: 21-15-4141akbpobjion 10 mg Tab 10 mg = 1 tab(s), Tab, Oral, Start date 11/04/22 9:00:00 EDT, 11/02/22 12:05:00 EDT Start Date: 11/04/22 Stop Date: 11/04/22 Status: CompletedStart: 75-76-5789mbsg 1 tablet by mouth once daily lisinopril 10 mg Tab 10 mg = 1 tab(s), Oral, Daily, Refills(s) 0 Start Date: 07/18/21 Status: Ordered Repeat number: 1Start: 39-98-7301jmcr 1 tablet by mouth once dailylisinopril 5 mg Tab 5 mg = 1 tab(s), Oral, Daily, Refills(s) 0 Start Date: 07/03/21 Status: Ordered{63 (ribociclib 200 MG Oral Tablet [Kisqali]) } Pack [Kisqali 600 MG Daily Dose Carton] (20 sources)Start: 05-47-7973Rtqhryd (600 mg daily dose) oral tablet 600 mg = 3 tab(s), Oral, Daily, take for 21 days followed by a 7 day rest period this is an increase in dose. pt was taking 400 mg but will now be taking 600 mg daily, # 63 tab(s), Refills(s) 12, Pharmacy: [id number], 167.6, cm, 01/09/24 10:45:00 EDT, Height/Length Dosing, 99, kg, 01/09/24 10:45:00 EDT, Weight Dosing Start Date: 01/09/24 Status: Ordered Quantity: 63.0 Unit: tab(s) Repeat number: 13 Indications: Malignant neoplasm of unspecified site of unspecified female breast;Start: 66-62-5124Eudgich (600 mg daily dose) oral tablet 600 mg = 3 tab(s), Oral, Daily, take for 21 days followed by a 7 day rest period this is an increase in dose. pt was taking 400 mg but will now be taking 600 mg daily, # 63 tab(s), Refills(s) 12, Pharmacy: [id number], 167.6, cm, 01/09/24 10:45:00 EDT, Height/Length Dosing, 99, kg, 01/09/24 10:45:00 EDT, Weight Dosing Start Date: 01/09/24 Status: Ordered Quantity: 63.0 Unit: tab(s) Repeat number: 13 Indication: Malignant neoplasm of unspecified site of unspecified female breastStart: 47-52-8886Sohtynw (600 mg daily dose) oral tablet 600 mg = 3 tab(s), Oral, Daily, take for 21 days followed by a 7 day rest period this is an increase in dose. pt was taking 400 mg but will now be taking 600 mg daily, # 63 tab(s), Refills(s) 12, Pharmacy: [id number], 167.6, cm, 01/09/24 10:45:00 EDT, Height/Length Dosing, 99, kg, 01/09/24 10:45:00 EDT, Weight Dosing Start Date: 01/09/24 Status: OrderedStart: 12-03-2023 End: 75-03-7952Ioesihx (400 mg daily dose) oral tablet 400 mg = 2 tab(s), Oral, Daily, 21 DAYS ON THEN 7 DAYS OFF 400 MG DAILY DOSE, X 21 day(s), # 42 tab(s), Refills(s) 12, Pharmacy: [facility], 167.6,cm, 09/12/23 10:31:00 EDT, Height/Length Dosing, 90.7, kg, 09/12/23 10:31:00 EDT, Weight Dosing Start Date: 12/03/23 Stop Date: 09/01/24 Status: Ordered Quantity: 42.0 Unit: tab(s) Repeat number: 13 Indication: Malignant neoplasm of unspecified site of unspecified female breastStart: 12-03-2023 End: 85-01-7326Kvjntxb (400 mg daily dose) oral tablet 400 mg = 2 tab(s), Oral, Daily, 21 DAYS ON THEN 7 DAYS OFF 400 MG DAILY DOSE, X 21 day(s), # 42 tab(s), Refills(s) 12, Pharmacy: [facility], 167.6,cm, 09/12/23 10:31:00 EDT, Height/Length Dosing, 90.7, kg, 09/12/23 10:31:00 EDT, Weight Dosing Start Date: 12/03/23 Stop Date: 09/01/24 Status: OrderedStart: 05-30-2023 End: 68-78-1474Edbbceq (400 mg daily dose) oral tablet 400 mg = 2 tab(s), Oral, Daily, 21 DAYS ON THEN 7 DAYS OFF 400 MG DAILY DOSE, X 21 day(s), # 42 tab(s), Refills(s) 12, Pharmacy: [id number], 167.6, cm, 05/01/23 14:05:00 EST, Height/Length Dosing, 86.7, kg, 12/20/22 15:11:00 EDT, Weight Dosing Start Date: 05/30/23 Stop Date: 02/27/24 Status: OrderedStart: 86-83-4315palfrstrkq 200 mg dose (Kisqali, 200 MG Dose,) tablet chemo therapy pack See Instructions, 2 tab(s)take for 21 days, withhold for 7 days, then repeat cycle. 11 REFILLS, # 42 tab(s), Refills(s) 1, called to pharmacy (Rx) 05/09/2022 ActiveStart: 14-03-0699Zocekdq (400 mg daily dose) oral tablet See Instructions, 1 tab by mouth for 21 days, withhold for 7 days then repeat cycle., # 21 tab(s), Refills(s) 1, [facility], 162.5,cm, 03/28/22 14:05:00 EST, Height/Length Dosing, 96.6, kg, 03/28/22 14:05:00 EST, Weight Do... Start Date: 03/29/22 Status: OrderedStart: 74-57-6699ztxpakesis 200 mg oral tablet See Instructions, take 1 tab(s) po days 1-21 take for 21 days, withhold for 7 days, then repeat cycle, # 21 tab(s), Refills(s) 11, called to pharmacy (Rx) Start Date: 03/14/22 Status: Ordered Problems Active Problems Problem ClassificationProblemDateDocumented DateEpisodic/ChronicAllergic reactions (1 source)Urticaria; Translations: [Other urticaria]Onset: 64-58-2028Smrucmrs Cancer of breast (20 sources)Malignant neoplasm of upper-outer quadrant of right female breast; Translations: [Malignant neoplasm of upper-outer quadrant of female breast] Onset: 91-61-8329CgaxkwkIxbnzs of breast (20 sources)Personal history of malignant neoplasm of breast; Translations: [History of malignant neoplasm of breast]Onset: 25-19-5147LmxoanfjIemrox of colon (11 sources)Malignant tumor of colon; Translations: [Malignant neoplasm of colon, unspecified]Onset: 77-81-7190StclemoUejtczpwvy and other anemia (1 source)Anemia; Translations: [Anemia, unspecified]Onset: 80-20-7057Niqghmhl Delirium, dementia, and amnestic and other cognitive disorders (20 sources)Age-related cognitive decline; Translations: [Age-related cognitive decline]Onset: 04-40-1186MhhefzbLejgsmyx mellitus without complication (20 sources)Diabetes mellitus; Translations: [Type 2 diabetes mellitus without complication]Onset: 232719-18-0913KsskyakTofbbrffa of lipid metabolism (20 sources)Hypercholesterolemia; Translations: [Pure hypercholesterolemia] Onset: 761379-84-5752EqcrbofK Codes: Fall (1 source)Fall; Translations: [Unspecified fall, initial encounter]Onset: 30-05-9746UkfkvuheFbdfyotwa hypertension (20 sources)Hypertensive disorder; Translations: [Essential hypertension]Onset: 651838-55-2099EwxiaieKtnud and electrolyte disorders (1 source)Dehydration; Translations: [Dehydration]Onset: 64-36-7333Vmayatwq Malaise and fatigue (2 sources)Asthenia; Translations: [Weakness]Onset: 50-58-9056Swqfdsfu Nutritional deficiencies (20 sources)Vitamin D deficiency; Translations: [Vitamin D deficiency, unspecified]Onset: 23-31-1898ZbqkwraPikqe aftercare (1 source)Long-term current use of drug therapy; Translations: [Other snf (current) drug therapy]Onset: 83-79-2314CurjzxacCctdc connective tissue disease (2 sources)Recurrent falls ; Translations: [Repeated falls]Onset: 11-02-2022 EpisodicOther fractures (20 sources)Multiple pelvic fractures; Translations: [Multiple fractures of pelvis with stable disruption of pelvic ring, subsequent encounter for fracture with routine healing]Onset: 69-72-1872UttqqlgcTvttm fractures (1 source)Closed fracture lumbar vertebra, wedge ; Translations: [Wedge compression fracture of unspecified lumbar vertebra, initial encounter for closed fracture]Onset: 25-31-7464AgjdgognVpryu nutritional; endocrine; and metabolic disorders (20 sources)Body mass index 30+ - obesity; Translations: [Body mass index (BMI) 36.0-36.9, adult]Onset: 774352-70-7194SifwoojFcrth nutritional; endocrine; and metabolic disorders (10 sources)Obese class I; Translations: [Obesity, unspecified]Onset: 09-13-2021 03-00-4155TbaehbeDphxm nutritional; endocrine; and metabolic disorders (10 sources)Obesity; Translations: [Obesity, unspecified]Onset: 10-24-2022 47-73-4525QsivucoValnhqyltutv fracture (20 sources)H/O: fragility fracture; Translations: [Personal history of (healed) osteoporosis fracture]Onset: 04-77-2871IalbayveKeqloarva malignancies (13 sources)Secondary malignant neoplasm of bone; Translations: [Secondary malignant neoplasm of bone]Onset: 21-96-4474Rqnxkaw Past or Other Problems Problem ClassificationProblemDateDocumented DateEpisodic/ChronicLymphadenitis (20 sources)Axillary lymphadenopathy; Translations: [Localized enlarged lymph nodes]Onset: 564439-93-3023IffbnamyXkzr disorders (10 sources)Mood disordersOnset: 436562-22-5061Aiqmred (10 sources)Onychomycosis; Translations: [Tinea unguium]Onset: 09-19-2022 56-49-6850AygxkgrhWbmdydzurhvk breast conditions (20 sources)Lump of upper outer quadrant of breast; Translations: [Lump in upper outer quadrant of right breast]Onset: 682702-02-2380DegphibjNnhpm connective tissue disease (10 sources)Pain of toe of left foot; Translations: [Pain in left toe(s)]Onset: 689784-13-9725YwvfwnmbTbroz connective tissue disease (10 sources)Pain of toe of right foot; Translations: [Pain in right toe(s)] Onset: 187708-16-0379TediuujpVxwiozao codes; unclassified (20 sources)Edema; Translations: [Edema, unspecified]Onset: EpisodicResidual codes; unclassified (10 sources)H/O: high risk medication; Translations: [Personal history of other drug therapy]Onset: 224236-49-7074DcccqblcNjrixeq tract infections (3 sources)Urinary tract infectious disease; Translations: [Urinary tract infection, site not specified]Onset: 65-20-5089Bifbcghs Results Test NameValueInterpretationReference RangeFacilityALL POTASSIUMon 01-27-2025 Potassium [Moles/Vol]4.9 mmol/L3.5 - 5.1 mmol/LNOMS [facility] DROP OFF CLINISYNCNOKY HealthcareGLUCOSE POCT GLUCOMETERSon 08-21-1140Euzjuxt [Mass/Vol] 127 mg/dLNOHedrick Medical CenterComment on above:Random Glucose Reference Range is dependent on time and content of last meal. Glucose of more than 200 mg/dL in a nonstressed, ambulatory subject supports the diagnosis of Diabetes Mellitus. [facility]ton HospitalGlucose Glucometer (dC) [Mass/Vol]Ordered By: Senthil Caldera on 95-24-4098Ndijyaz [Mass/Vol]Capillary blood glucose measurement by glucometer (mass/volume)[facility] HospitalComment on above:Random Glucose Reference Range is dependent on time and content of last meal. Glucose of more than 200 mg/dL in a nonstressed, ambulatory subject supports the diagnosis of Diabetes Mellitus.Glucose Poct Glucometerson 03-40-5332Isdytos [Mass/Vol]127 mg/dLNoNorth Carolina Specialty Hospital Physician GroupComment on above:Result Comment: Random Glucose Reference Range is dependent on time and content of last meal. Glucose of more than 200 mg/dL in a nonstressed, ambulatory subject supports the diagnosis of Diabetes Mellitus. PERFORMED BY: [place] [address] PATHOLOGIST CHARGE MASTER COORDINATOR KIKI URIBE M.D.Performed By: #### GLULS #### Point of Care testing ,PET tumor subq tx strat sb-mton 50-15-4824GMK tumor subq tx strat sb-mt [facility] [place] [address] Nuclear Medicine Report Signed Patient: Marlen Staley MR#: [id number] 65 : 1950 Acct:[id number] Age/Sex: 74 / F ADM Date: 09/30/24 Loc: Room: Type: [facility] Attending Dr: Senthil Caldera - [facility] DO Copies to: Fady Muir Jr, DO [...] Jr., D.O. 09/30/2024 11:48 AM Dictation Location: [place] [address] Transcribed By: [facility] 09/30/24 1148 Dictated By: Fady Muir Jr, DO 09/30/24 1057 Signed By: 09/30/24 1148[facility] Physician GroupGLUCOSE POCT GLUCOMETERSon 27-80-6533HNVHResearch Belton HospitalGlucose Glucometer ([facility]) [Mass/Vol]Ordered By: Senthil Caldera on 02-97-7928Bimnaxa [Mass/Vol]Capillary blood glucose measurement by glucometer (mass/volume)[facility] HospitalComment on above: Random Glucose Reference Range is dependent on time and content of last meal. Glucose of more than 200 mg/dL in a nonstressed, ambulatory subject supports the diagnosis of Diabetes Mellitus.Glucose Poct Glucometerson 26-25-9859Aajljwz [Mass/Vol]121 mg/dLNoSouthwood Psychiatric HospitalComment on above:Random Glucose Reference Range is dependent on time and content of last meal. Glucose of more than 200 mg/dL in a nonstressed, ambulatory subject supports the diagnosis of Diabetes Mellitus. Result Comment: Random Glucose Reference Range is dependent on time and content of last meal. Glucose of more than 200 mg/dL in a nonstressed, ambulatory subject supports the diagnosis of Diabetes Mellitus. PERFORMED BY: [place] [address] [place] [address] PATHOLOGIST CHARGE MASTER COORDINATOR LORIE GAGE M.D.Performed By: #### GLULS #### Point of Care testing ,PET tumor subq tx strat sb-mton 94-08-8313WBN tumor subq tx strat sb-mt [facility] Main [place] [address] [place] [address] Nuclear Medicine Report Signed Patient: Marlen Staley MR#: [id number] 65 : 1950 Acct:[id number] Age/Sex: 74 / F ADM Date: 08/17/24 Loc: Room: Type: [facility] Attending Dr: Senthil Caldera - [facility] [place] Copies to: Fady Muir Jr, DO [...] nodes. Impression dictated by: Fady Muir Jr., D.O. 08/17/2024 3:15 PM Dictation Location: [place] [address] Transcribed By: [facility] 08/17/24 7705 Dictated By: Fady Muir Jr, DO 08/17/24 2905 Signed By: 08/17/24 1515[facility] Physician GroupGLUCOSE POCT GLUCOMETERSon 38-18-9710Fkxakum [Mass/Vol]182 mg/dLResearch Belton HospitalComment on above:Random Glucose Reference Range is dependent on time and content of last meal. Glucose of more than 200 mg/dL in a nonstressed, ambulatory subject supports the diagnosis of Diabetes Mellitus. Research Belton HospitalGlucose Glucometer ([facility]) [Mass/Vol]Ordered By: Senthil Caldera on 39-17-5098Gspelsg [Mass/Vol]Capillary blood glucose measurement by glucometer (mass/volume)[facility] Memorial HospitalComment on above:Random Glucose Reference Range is dependent on time and content of last meal. Glucose of more than 200 mg/dL in a nonstressed, ambulatory subject supports the diagnosis of Diabetes Mellitus.Glucose Poct Glucometerson 82-80-3128Qfurqxa [Mass/Vol]182 mg/dLPhysicians [facility] Physician [facility] WesleyComment on above:Result Comment: Random Glucose Reference Range is dependent on time and content of last meal. Glucose of more than 200 mg/dL in a nonstressed, ambulatory subject supports the diagnosis of Diabetes Mellitus. PERFORMED BY: [place] [address] PATHOLOGIST CHARGE MASTER COORDINATOR LORIE GAGE M.D.Performed By: #### GLULS #### Point of Care testing ,PET tumor subq tx strat sb-mton 86-46-2969GKW tumor subq tx strat sb-mt [facility] [place] [address] Nuclear Medicine Report Signed Patient: Marlen Staley MR#: [id number] 65 : 1950 Acct:[id number] Age/Sex: 73 / F ADM Date: 04/29/24 Loc: Room: Type: [facility] CLI Attending Dr: Senthil Caldera - [facility] DO Copies to: MD Senthil Guo DO Ordering Provider: Senthil Cladera DO Date of Service: 04/29/24 PET/PET tumor [...] Carlos Guaman M.D.04/29/2024 4:17 PM Dictation Location: [place] [address] Transcribed By: [facility] 04/29/24 1617 Dictated By: Carlos Guaman MD 04/29/24 1607 Signed By: 04/29/24 [facility] Physician GroupALL CBC WITH AUTO DIFFon 97-77-9998FVJXXZLKS ABSOLUTE AUTO0.1NOMS HealthcareBasophils/100 WBC (Bld)2.7 % High0.2 - 2.0 %NOMS HealthcareEosinophils/100 WBC (Bld)3.5 %0.9 - 7.0 %NOMS HealthcareErythrocyte distribution width (RBC) [Ratio]13.6 %11.0 - 15.0 %NOMS HealthcareHematocrit (Bld) [Volume fraction]32.2 %Low36.0 - 48.0 %NOMS HealthcareHemoglobin (Bld) [Mass/Vol]10.3 g/dLLow12.0 - 16.0 g/dLResearch Belton Hospital IMMATURE GRANULOCYTES ABS AUTO0.03NOHedrick Medical CenterImmature granulocytes/100 WBC (Bld)0.7 %High0.0 - 0.5 %Research Belton HospitalInterpretation and review of laboratory resultsAbnormalNOHedrick Medical CenterLYMPHOCYTES ABSOLUTE AUTO1.4NOMS [facility] Lymphocytes/100 WBC (Bld)33.9 %20.5 - 60.0 %Carondelet HealthH (RBC) [Entitic mass]33.3 pg26.7 - 34.0 pgNOCox BransonHC (RBC) [Mass/Vol]32.0 g/dL29.9 - 35.2 g/dLCarondelet HealthV (RBC) [Entitic vol]104.2 oGEuhc70.0 - 99.0 fLResearch Belton HospitalMONOCYTES ABSOLUTE AUTO0.3NOKY HealthcareMonocytes/100 WBC (Bld)6.2 % 1.7 - 12.0 %Research Belton HospitalNEUTROPHILS ABSOLUTE AUTO2.1NOMS [facility] Neutrophils/100 WBC (Bld)53.0 %43.0 - 75.0 %Research Belton HospitalPlatelet mean volume (Bld) [Entitic vol]9.3 fLLow9.5 - 13.5 fLNOHedrick Medical CenterTBH EO #0.1NOMS HealthcareTBH [id number] [facility] RBC3.09LowNOMS [facility] Children'S Medical CenterTB WBC4.0NOHedrick Medical CenterCLINISYNCNOMS HealthcareCapillary blood glucose measurement by glucometer (mass/volume)Ordered By: Senthil Caldera on 70-17-5107Prvuptg [Mass/Vol]121 mg/dLChillicothe HospitalComment on above: Random Glucose Reference Range is dependent on time and content of last meal. Glucose of more than 200 mg/dL in a nonstressed, ambulatory subject supports the diagnosis of Diabetes Mellitus.Result Comment: Random Glucose Reference Range is dependent on time and content of last meal. Glucose of more than 200 mg/dL in a nonstressed, ambulatory subject supports the diagnosis of Diabetes Mellitus. PERFORMED BY: [place] [address] [place] [address] PATHOLOGIST CHARGE MASTER COORDINATOR JERICA JO M.D.Performed By: #### GLULS #### Point of Care testing ,GLUCOSE POCT GLUCOMETERSon 82-27-3363Ueqxzqo [Mass/Vol]121 mg/dLResearch Belton Hospital Comment on above:Random Glucose Reference Range is dependent on time and content of last meal. Glucose of more than 200 mg/dL in a nonstressed, ambulatory subject supports the diagnosis of Diabetes Mellitus. NOMS HealthcarePET tumor subq tx strat sb-mton 14-80-9362LJU tumor subq tx strat sb-[facility] [place] [address] [place] [address] Nuclear Medicine Report Signed Patient: Marlen Staley MR#: [id number] 65 : 1950 Acct:[id number] Age/Sex: 73 / F ADM Date: 12/30/23 Loc: Room: Type: [facility] Attending Dr: Senthil Caldera - [facility] DO Copies to: Audi Rogers II, MD [...] Audi Rogers M.D.12/30/2023 2:23 PM Dictation Location: [place] [address] Transcribed By: LENNOX 12/30/23 1423 Dictated By: Audi Rogers II, MD 12/30/23 1413 Signed By: 12/30/23 1423[facility] Physician GroupALL CBC WITH AUTO DIFFon 61-26-9699PIPLLGVHS ABSOLUTE AUTO0.1NOMS HealthcareBasophils/100 WBC (Bld)2.8 % High0.2 - 2.0 %NOMS HealthcareEosinophils/100 WBC (Bld)4.9 %0.9 - 7.0 %NOMSaint Mary'S Health CenterErythrocyte distribution width (RBC) [Ratio]14.0 %11.0 - 15.0 %NOM HealthcareHematocrit (Bld) [Volume fraction]30.0 %Low36.0 - 48.0 %NOMSaint Mary'S Health CenterHemoglobin (Bld) [Mass/Vol]9.9 g/dLLow12.0 - 16.0 g/dLNOHedrick Medical Center IMMATURE GRANULOCYTES ABS AUTO0.03NOMS [facility] Medical CenterImmature granulocytes/100 WBC (Bld)0.8 %High0.0 - 0.5 %NOM HealthcareInterpretation and review of laboratory resultsAbnormalNOHedrick Medical CenterLYMPHOCYTES ABSOLUTE AUTO1.3NOMS Healthcare Lymphocytes/100 WBC (Bld)32.5 %20.5 - 60.0 %NOMSaint Joseph Health CenterH (RBC) [Entitic mass]34.1 spJkpm10.7 - 34.0 pgNOMS [facility]ht[facility] County Medical CenterHC (RBC) [Mass/Vol]33.0 g/dL29.9 - 35.2 g/dLNOKY HealthcareMCV (RBC) [Entitic vol]103.4 ePMjvf11.0 - 99.0 fLNOKY HealthcareMONOCYTES ABSOLUTE AUTO0.3NOMS HealthcareMonocytes/100 WBC (Bld)7.4 % 1.7 - 12.0 %[facility] HealthcareNEUTROPHILS ABSOLUTE AUTO2.0NOMS Healthcare Neutrophils/100 WBC (Bld)51.6 %43.0 - 75.0 %NOMS HealthcarePlatelet mean volume (Bld) [Entitic vol]9.3 fLLow9.5 - 13.5 fLNOMS HealthcareTBH EO #0.2NOMS HealthcareTBH [id number] HealthcareTBH RBC2.90LowNOMS HealthcareTBH WBC3.9Low [facility] HealthcareCLINISYNCNOMS HealthcareLaboratory Outside Office Copyon 07-43-5119Qnheqlgjso Outside Office Copy [id number]#1.00TIFSt. Vincent HospitalLaboratory Outside Office Copy [id number]#1.00TIFSt. Vincent HospitalErythropoiet Lvlon 11-08-8947Amamffdoibbeje (EPO) Qn16.8 mIU/mLInvalid Interpretation Code2.6-18.5Fisher Brandenburg CenterComment on above:Result Comment: BrainCellsel DxI 800 Immunoassay System Values obtained with different assay methods or kits cannot be used interchangeably. Results cannot be interpreted as absolute evidence of the presence or absence of malignant disease. Performed at: [facility] [address] [place], [place] [id number] PhD Denver Hillformed By: #### [id number] #### [facility] [address] [place], [place] [address]Haoabix Radiologyon 16-12-4911Xgnihdj Radiology [id number]#1.00TIFSt. Vincent HospitalCBC w/ Auto Diffon 64-60-9701Nhkdedume/100 WBC (Bld)1.1 %Normal0.0-2.0 [facility] HospitalComment on above:Performed By: #### [id number] #### [facility] [address] [place] [address] 249[address]Zbxgcarcx/Leukocytes Auto (Bld) [Pure # fraction]0.0 E9/LNormal 0.0-0.2FMercy Health Clermont HospitalComment on above:Performed By: #### [id number] #### [facility] [address] [place] [address] 915[address]Eibahkslptk (Bld) [#/Vol]0.2 E9/LNormal0.0-0.5FMercy Health Clermont HospitalComment on above:Performed By: #### [id number] #### [facility] [address] [place] [address] 609[address]Shetuwgrsjb/100 WBC (Bld)4.3 %Normal0.0-8.0[facility] HospitalComment on above:Performed By: #### [id number] #### [facility] [address] [place] [address]85[address]Dcoetaagfjq distribution width (RBC) [Ratio]14.6 %High10.9-14.2 [facility] HospitalComment on above:Performed By: #### [id number] #### [facility] [address] [place] [address] 696[address]Xnhfnmuxxc (Bld) [Volume fraction]35.9 %Qghrdx99.0-46.0[facility] HospitalComment on above:Performed By: #### [id number] #### [facility] [address] [place] [address] 24[address]Jhbmrjyjrl (Bld) [Mass/Vol]11.7 g/dLLow12.0-16.0[facility] HospitalComment on above:Performed By: #### [id number] #### [facility] [address] [place] [address] 71031Hxjdcjhdume (Bld) [#/Vol]1.3 E9/LNormal1.0-4.0[facility] HospitalComment on above:Performed By: #### [id number] #### [facility] [address] [place] [address] 25[address]Djoknbamrgo/100 WBC (Bld)29.3 %Ljwfrh11.0-50.0[facility] HospitalComment on above:Performed By: #### [id number] #### [facility] [address] [place] [address] 87[address]ISH (RBC) [Entitic mass]33.9 mxCczkye99.0-34.0[facility] HospitalComment on above:Performed By: #### [id number] #### [facility] [address] [place] [address] 23[address]NRVJ (RBC) [Mass/Vol]32.7 g/jQMmvuvi38.4-36.0[facility] HospitalComment on above:Performed By: #### [id number] #### [facility] [address] [place] [address] 04302UKH (RBC) [Entitic vol]103.7 lINshv36.0-100.0[facility] HospitalComment on above:Performed By: #### [id number] #### [facility] [address] [place] [address] 13473Rkpsraauc (Bld) [#/Vol]0.2 E9/LNormal0.2-1.0[facility] HospitalComment on above:Performed By: #### [id number] #### [facility] [address] [place] [address] 25[address]Blhcnofkkzu (Bld) [#/Vol]2.7 E9/LNormal2.0-7.5FMercy Health Clermont HospitalComment on above:Performed By: #### [id number] #### [facility] [address] [place] [address] 869[address]Chfavqjdfzw/100 WBC (Bld)60.4 %Echcda76.0-75.0[facility] HospitalComment on above:Performed By: #### [id number] #### [facility] [address], [place] [address]Caetxinn mean volume (Bld) [Entitic vol]6.8 fLNormal6.4-10.8 [facility] HospitalComment on above:Performed By: #### [id number] #### [facility] [address], [place] [address]Wgcbcxpxu (Bld) [#/Vol]245.0 E9/NBbrwzr386.0-500.0[facility] HospitalComment on above:Performed By: #### [id number] #### [facility] [address], [place] [address]TBC (Bld) [#/Vol]3.5 E12/LLow4.3-5.9[facility] Comment on above:Performed By: #### [id number] #### [facility] [address] [place] [address]HTL corrected for nucl RBC Auto (Bld) [#/Vol]4.5 E9/LNormal 4.0-11.0[facility] HospitalComment on above:Performed By: #### [id number] #### [facility] [address], [place] [address]EQWCVXSMIQwhdink By: SYSTEM SYSTEM on 83-61-2391Ffbmowo [Mass/Vol]3.8 g/dLNormal3.3 - 5.0 gm/dLRemisol ChemAlbumin/Globulin [Mass ratio] 1.2 {ratio}Normal1.1 - 2.2Remisol ChemALP [Catalytic activity/Vol]119 [iU]/dHigh 21 - 98 Int._Unit/LRemisol ChemALT No additional P-5'-P [Catalytic activity/Vol] 11 [iU]/dNormal6 - 46 Int._Unit/LRemisol ChemAnion gap [Moles/Vol]13 mmol/L Normal6 - 16 mEq/LRemisol ChemAST [Catalytic activity/Vol]12 [iU]/dNormal5 - 43 Int._Unit/LRemisol ChemBilirubin [Mass/Vol]0.3 mg/dLNormal0.0 - 1.1 mg/dLRemisol ChemCalcium [Mass/Vol]9.1 mg/dLNormal8.9 - 11.1 mg/dLRemisol ChemChloride [Moles/Vol]111 mmol/XOeqbin645 - 111 mmol/LRemisol ChemCO2 [Moles/Vol]22 mmol/L Dzrclm56 - 31 mmol/LRemisol ChemCobalamin (Vitamin B12) [Mass/Vol]524 pg/mL Lxanbf51 - 1500 pg/mLRemisol ChemCreatinine [Mass/Vol]1.9 mg/dLHigh0.5 - 1.3 mg/dLRemisol KmtmwRRF82 mL/min/1.73 m2Low>=59mL/min/1.73 x7Wgywslf ChemFerritin [Mass/Vol]193 ng/gIRlixbk03 - 307 ng/mLRemisol ChemFolate [Mass/Vol]ng/mLNormal >=6.7ng/mLRemisol ChemGlobulin (S) [Mass/Vol]3.1 g/dLNormal1.4 - 4.0 gm/dL Remisol ChemGlucose [Mass/Vol]197 mg/yFBwgorb53 - 199 mg/dLRemisol ChemIron [Mass/Vol]81 ug/bYSsljap21 - 153 mcg/dLRemisol ChemIron binding capacity [Mass/Vol]277 ug/oJCweluu602 - 400 mcg/dLRemisol ChemIron saturation [Mass fraction]29 %Gxmghz13 - 50 %Remisol ChemPotassium [Moles/Vol]4.8 mmol/LNormal3.5 - 5.3 mmol/LRemisol ChemProtein [Mass/Vol]6.9 g/dLNormal6.0 - 7.8 gm/dLRemisol ChemSodium [Moles/Vol]141 mmol/SRhicjs356 - 145 mmol/LRemisol ChemTransferrin [Mass/Vol]198 mg/jKTmt074 - 370 mg/dLRemisol ChemUrea nitrogen [Mass/Vol]44 mg/dLHigh5 - 21 mg/dLRemisol ChemUrea nitrogen/Creatinine [Mass ratio]23 mg/mg High10 - 20Remisol ChemCMPon 93-39-8057Vcwvdce [Mass/Vol]3.8 g/dLNormal3.3-5.0 [facility] HospitalComment on above:Performed By: #### [id number] #### [facility] [address] [place] [address] 20[address]Jesqhcj/Globulin (S) [Mass conc ratio]1.6Xikqtf8.1-2.2FMercy Health Clermont HospitalComment on above:Performed By: #### [id number] #### [facility] [address] [place] [address] 513[address]RBP [Catalytic activity/Vol]119 Int._Unit/ZNnuh88-71SuxtqeElyria Memorial HospitalComment on above:Performed By: #### [id number] #### [facility] [address] [place] [address] 55[address]ITQ No additional P-5'-P [Catalytic activity/Vol]11 Int._Unit/L Normal6-46[facility] HospitalComment on above:Performed By: #### [id number] #### [facility] [address] [place] [address] 107[address]Crywu gap [Moles/Vol]13 mmol/LNormal6-16[facility] HospitalComment on above:Performed By: #### [id number] #### [facility] [address] [place] [address]DPW [Catalytic activity/Vol]12 Int._Unit/LNormal5-43[facility] HospitalComment on above:Performed By: #### [id number] #### [facility] [address] [place] [address] 97[address]Omzmoqjmt [Mass/Vol]0.3 mg/dLNormal0.0-1.1FMercy Health Clermont HospitalComment on above:Performed By: #### [id number] #### [facility] [address] [place] [address] 14[address]Gwtjfea [Mass/Vol]9.1 mg/dLNormal8.9-11.1FMercy Health Clermont HospitalComment on above:Performed By: #### [id number] #### [facility] [address], [place] [address]Srfeefwt [Moles/Vol]111 mmol/VBrsudr570-458ByvsfeElyria Memorial HospitalComment on above:Performed By: #### [id number] #### [facility] [address], [place] [address]VT2 [Moles/Vol]22 mmol/VGlhtjh95-87HlpxjhElyria Memorial Hospital Comment on above:Performed By: #### [id number] #### [facility] [address], [place] [address]Sdsjyftgqc [Mass/Vol]1.9 mg/dLHigh0.5-1.3FMercy Health Clermont HospitalComment on above:Performed By: #### [id number] #### [facility] [address] [place] [address] 258[address]Gaergznp (S) [Mass/Vol]3.1 g/dLNormal1.4-4.0[facility] HospitalComment on above:Performed By: #### [id number] #### [facility] [address], [place] [address]Kjefxur [Mass/Vol]197 mg/mJPopnoh46-449BluqupElyria Memorial HospitalComment on above:Performed By: #### [id number] #### [facility] [address] [place] [address]Aoyckynir [Moles/Vol]4.8 mmol/LNormal3.5-5.3FMercy Health Clermont HospitalComment on above:Performed By: #### [id number] #### [facility] [address], [place] [address]Eapgaqq [Mass/Vol]6.9 g/dLNormal6.0-7.8[facility] HospitalComment on above:Performed By: #### [id number] #### [facility] [address], [place] [address]Jlcwmb [Moles/Vol]141 mmol/QZvlbwb377-431QjxctlElyria Memorial HospitalComment on above:Performed By: #### [id number] #### [facility] [address], [place] [address]Suke nitrogen [Mass/Vol]44 mg/dLHigh5-21[facility] HospitalComment on above:Performed By: #### [id number] #### [facility] [address], [place] [address]Ruam nitrogen/Creatinine [Mass ratio]23 No QosgbKrhh25-06MmvqxcElyria Memorial HospitalComment on above:Performed By: #### [id number] #### [facility] [address], [place] [address]Lemckvg for Treatmenton 70-97-9357Ijpoykv for Treatment [id number]#1.00TIFFNormalElyria Memorial HospitalFerritinon 60-89-3805Dweuiljg [Mass/Vol]193 ng/ePYkcfqd62-119KvytfyElyria Memorial HospitalComment on above:Performed By: #### [id number] #### [facility] [address], [place] [address]Syhdzqvp 55-24-1732Bnavrz [Mass/Vol]ng/mLNormal>=6.7Fisher Brandenburg CenterComment on above:Performed By: #### [id number] #### [facility] [address], [place] [address]NRULYZBWWFXyiippw By: SYSTEM SYSTEM on 10-76-1361Wjxtgqkbt/100 WBC (Bld)1.1 %Normal0.0 - 2.0 %Remisol HemeBasophils/Leukocytes Auto (Bld) [Pure # fraction]0.0 E9/LNormal0.0 - 0.2 E9/LRemisol HemeEosinophils (Bld) [#/Vol]0.2 E9/LNormal0.0 - 0.5 E9/LRemisol HemeEosinophils/100 WBC (Bld)4.3 %Normal0.0 - 8.0 %Remisol HemeErythrocyte distribution width (RBC) [Ratio]14.6 %High10.9 - 14.2 %Remisol HemeHematocrit (Bld) [Volume fraction]35.9 %Gazdyk62.0 - 46.0 % Remisol HemeHemoglobin (Bld) [Mass/Vol]11.7 g/dLLow12.0 - 16.0 gm/dLRemisol Heme Lymphocytes (Bld) [#/Vol]1.3 E9/LNormal1.0 - 4.0 E9/LRemisol HemeLymphocytes/100 WBC (Bld)29.3 %Hbtzzu81.0 - 50.0 %Remisol HemeMCH (RBC) [Entitic mass]33.9 pg Bglezd91.0 - 34.0 pgRemisol HemeMCHC (RBC) [Mass/Vol]32.7 g/tARjjksp25.4 - 36.0 gm/dLRemisol HemeMCV (RBC) [Entitic vol]103.7 rGVqee47.0 - 100.0 fLRemisol Heme Monocytes (Bld) [#/Vol]0.2 E9/LNormal0.2 - 1.0 E9/LRemisol HemeMonocytes/100 WBC (Bld)4.9 %Normal4.0 - 14.0 %Remisol HemeNeutrophils (Bld) [#/Vol]2.7 E9/LNormal 2.0 - 7.5 E9/LRemisol HemeNeutrophils/100 WBC (Bld)60.4 %Qnpcaa82.0 - 75.0 % Remisol HemePlatelet mean volume (Bld) [Entitic vol]6.8 fLNormal6.4 - 10.8 fL Remisol HemePlatelets (Bld) [#/Vol]245.0 E9/RXivgtj222.0 - 500.0 E9/LRemisol HemeRBC (Bld) [#/Vol]3.5 E12/LLow4.3 - 5.9 E12/LRemisol HemeWBC corrected for nucl RBC Auto (Bld) [#/Vol]4.5 E9/LNormal4.0 - 11.0 E9/LRemisol HemeIronon 01-56-8693Lczn [Mass/Vol]81 microgram/hLHssqzu03-206YfugmyElyria Memorial Hospital Comment on above:Performed By: #### [id number] #### [facility] [address], [place] [address]Kxbe Saturationon 21-53-4502Zsaa binding capacity [Mass/Vol]277 microgram/pQHxxuqw276-951OjxiuyElyria Memorial HospitalComment on above:Performed By: #### [id number] #### [facility] [address], [place] [address]Otrx saturation [Mass fraction]29 %Qsorow89-79OxvfuhElyria Memorial HospitalComment on above:Performed By: #### [id number] #### [facility] [address], [place] [address]Sviboopn Progress Noteon 97-82-4917Owuqbiju Progress NoteChief Complaint Follow up on Breast cancer, patient [...] is unknown as she was adopted. Outpatient medicationsinclude furosemide, lisinopril, simvastatin, fish oil. Noted by [...] IMPROVEMENT, WITH DECREASE IN SIZE AND DECREASE INUPTAKE OF ACTIVITY BY THE PREVIOUSLY NOTED RIGHT [...] at home. She continues to care for herhusband and is struggling with keeping up on chores still taking her Kisqali labs stable overall, her B12 was low and she would like to start b12 pills vs. injections 01/30/23 [address] [facility] maybe last month. They didnt have a bed afer her last hospitalization (for uti) a few weeks ago and so upon discharge went to [facility]. Her friends are concerned she will not be safe if she goes home. she seems to have a bad memory. her is also in [facility] continues [facility], despite our meticulous calender she seems to have trouble remembering to taek this when she was at home. She insists she is getting better and wants to go home. 05/01/23 she is in [facility]. she is convinced she will be able to be independent again. She is not walking even with a walker. continues [facility]. anemi (more content not included)...NormalElyria Memorial HospitalPhysician Orderon 85-34-0356Tiluripdv Order [id number]#1.00TIFFNormalElyria Memorial HospitalPhysician [id number]#1.00TIFFNormal [facility] HospitalPhysician Order [id number]#1.00TIFFNormFirelands Regional Medical Center South CampusTransferrinon 52-82-7416Pnvqbqozlri [Mass/Vol]198 mg/fCSjr171-315DtxzubElyria Memorial HospitalComment on above:Performed By: #### [id number] #### [facility] [address], [place] [address]Lec B12on 15-95-6495Drlyqsgir (Vitamin B12) [Mass/Vol]524 pg/mL Jrbmxf87-4997DuiimkElyria Memorial HospitalComment on above:Performed By: #### [id number] #### [facility] [address], [place] [address]zDYCma 29-02-4932hVQV48 mL/min/1.73 m2Low>=59E[facility] Memorial HospitalComment on above:Order Comment: Order added by Discern Expert. Performed By: #### [id number] #### [facility] [address], [place] [address]Wme Reportson 26-80-4322Wdx Reports [id number]#1.00TIFSt. Vincent HospitalGlucose Glucometer (BldC) [Mass/Vol]Ordered By: Senthil Caldera on 86-43-1477Aagojbk [Mass/Vol]127 mg/dLGreene Memorial HospitalComment on above:Random Glucose Reference Range is dependent on time and content of last meal. Glucose of more than 200 mg/dL in a nonstressed, ambulatory subject supports the diagnosis of Diabetes Mellitus.Physician Orderon 06-27-2023 Physician [id number]#1.00[facility] HospitalConsent for Treatmenton 88-74-0348Ymjhszx for Treatment [id number]#1.00TIFOhioHealth Pat Eduon 31-57-7867SB Pat EduCaregiving Fall Prevention in the Home, Adult Falls [...] Keep items that you use often in nhve-hx-hoyvb places. Lower the shelves around your home [...] the way. ? Do not use floor [place] islander or wax that makes floors slippery. What [...] can make you feel dizzy. This can increaseyour chance of falling. Ask your doctor what else you can do to help prevent falls. Where to find more information ? Centers for Disease Control and Prevention, STEAD[place]: www.cdc.gov ? National [place] on Aging: www.derrick.nih.gov Contact a doctor if: [...] provider. Document Revised: 01/08/2022 Document Reviewed: 11/09/2020 ElsePlurality Patient Education ? 2022 Fundera. Nutrition High-Protein and H (more content not included)...[facility] EduCaregiving Fall Prevention in the Home, Adult Falls [...] Keep items that you use often in ntch-eq-bixtu places. Lower the shelves around your home [...] the way. ? Do not use floor british virgin islander or wax that makes floors slippery. What [...] can make you feel dizzy. This can increaseyour chance of falling. Ask your doctor what else you can do to help prevent falls. Where to find more information ? Centers for Disease Control and Prevention, STEADI: www.cdc.gov ? National [place] on Aging: www.derrick.nih.gov Contact a doctor if: [...] provider. Document Revised: 01/08/2022 Document Reviewed: 11/09/2020 ZMP Patient Education ? 2022 Fundera. Obstetrics and Gynecology Br (more content not included)...[facility] Caregiving Fall Prevention in the Home, [...] Keep items that you use often in wyif-fy-cennf places. Lower the shelves around your home [...] the way. ? Do not use floor british virgin islander or wax that makes floors slippery. What [...] can make you feel dizzy. This can increaseyour chance of falling. Ask your doctor what else you can do to help prevent falls. Where to find more information ? Centers for Disease Control and Prevention, STEADI: www.cdc.gov ? National [place] on Aging: www.derrick.nih.gov Contact a doctor if: [...] provider. Document Revised: 01/08/2022 Document Reviewed: 11/09/2020 ZMP Patient Education ? [address] Oncology Progress Noteon 57-92-5713Sfoyqtud Progress NoteChief Complaint Breast CA Pt her to go [...] is unknown as she was adopted. Outpatient medicationsinclude furosemide, lisinopril, simvastatin, fish oil. Noted by [...] IMPROVEMENT, WITH DECREASE IN SIZE AND DECREASE INUPTAKE OF ACTIVITY BY THE PREVIOUSLY NOTED RIGHT [...] at home. She continues to care for herhusband and is struggling with keeping up on chores still taking her Kisqali labs stable overall, her B12 was low and she would like to start b12 pills vs. injections 01/30/23 she [address] some time in [facility] maybe last month. They didnt have a bed afer her last hospitalization (for uti) a few weeks ago and so upon discharge went to [facility]. Her friends are concerned she will not be safe if she goes home. she seems to have a bad memory. her is also in [facility] continues kisquali, despite our meticulous calender she seems to have trouble remembering to taek this when she was at home. She insists she is getting better and wants to go home. 05/01/23 she is in [facility]. she is convinced she will be able to be independent again. She is not walking even with a walker. continues kisquali. anemic on recent labs. 06/12/23 Continues kisquali and arimidex. recent PET/CT. notes interval enlargement of the right breast mass with development of 2 nodules with increased hypermetab (more content not included)...NormalFisher Brandenburg CenterPhysician Orderon 06-12-2023 Physician [id number]#1.00TIFFNormFirelands Regional Medical Center South CampusOutside Labson 34-16-6896Qpplghw Labs [id number]#1.00TIFFNoTogus VA Medical CenterOutside Radiologyon 48-31-7519Iuewhwz Radiology [id number]#1.00TIFFNoTogus VA Medical CenterALL CBC WITH AUTO DIFFon 58-27-8899MEWORSLUU ABSOLUTE AUTO0.1NOMS HealthcareBasophils/100 WBC (Bld)1.2 %0.2 - 2.0 %NOMS HealthcareEosinophils/100 WBC (Bld)3.8 %0.9 - 7.0 %NOMS HealthcareErythrocyte distribution width (RBC) [Ratio]13.4 %11.0 - 15.0 %NOMS HealthcareHematocrit (Bld) [Volume fraction]29.4 %Low36.0 - 48.0 %[facility] HospitalHemoglobin (Bld) [Mass/Vol]9.4 g/dLLow12.0 - 16.0 g/dLResearch Belton HospitalIMMATURE GRANULOCYTES ABS AUTO0.02NOHedrick Medical Center Immature granulocytes/100 WBC (Bld)0.4 %0.0 - 0.5 %[facility] HospitalInterpretation and review of laboratory resultsAbnormalResearch Belton HospitalLYMPHOCYTES ABSOLUTE AUTO1.8NOMS [facility]'S Medical CenterLymphocytes/100 WBC (Bld)35.5 %20.5 - 60.0 %[facility] HealthH (RBC) [Entitic mass]33.5 pg26.7 - 34.0 pgCarondelet HealthHC (RBC) [Mass/Vol]32.0 g/dL29.9 - 35.2 g/dLCarondelet HealthV (RBC) [Entitic vol]104.6 lOBgym85.0 - 99.0 fLResearch Belton HospitalMONOCYTES ABSOLUTE AUTO0.4[facility] Monocytes/100 WBC (Bld)8.2 %1.7 - 12.0 %[facility] HospitalNEUTROPHILS ABSOLUTE AUTO 2.5NOMS [facility]'S Medical CenterNeutrophils/100 WBC (Bld)50.9 %43.0 - 75.0 %[facility] Platelet mean volume (Bld) [Entitic vol]9.2 fLLow9.5 - 13.5 fLResearch Belton HospitalTBH EO #0.2NOMS [facility]S Medical CenterTB [id number] [facility] RBC2.81LowNOSSM Rehab WBC5.0NOHedrick Medical CenterCLINISYNCNCenterpoint Medical CenterGLUCOSE POCT GLUCOMETERSon 28-54-2453Jbssggt [Mass/Vol]110 mg/dLResearch Belton HospitalComment on above:Random Glucose Reference Range is dependent on time and content of last meal. Glucose of more than 200 mg/dL in a nonstressed, ambulatory subject supports the diagnosis of Diabetes Mellitus. [facility] HospitalGlucose Glucometer (BldC) [Mass/Vol]Ordered By: Senthil Caldera on 00-19-8082Tmktklh [Mass/Vol]110 mg/dLGreene Memorial Hospital Comment on above:Random Glucose Reference Range is dependent on time and content of last meal. Glucose of more than 200 mg/dL in a nonstressed, ambulatory subject supports the diagnosis of Diabetes Mellitus.ALL CBC WITH AUTO DIFFon 04-82-5367FQQSEVNAE ABSOLUTE AUTO0.1NOMS HealthcareBasophils/100 WBC (Bld)2.0 % 0.2 - 2.0 %NOMS HealthcareEosinophils/100 WBC (Bld)3.3 %0.9 - 7.0 %NOMSaint Mary'S Health CenterErythrocyte distribution width (RBC) [Ratio]13.2 %11.0 - 15.0 %NOMS HealthcareHematocrit (Bld) [Volume fraction]28.4 %Low36.0 - 48.0 %NOMSaint Mary'S Health CenterHemoglobin (Bld) [Mass/Vol]9.2 g/dLLow12.0 - 16.0 g/dLResearch Belton Hospital IMMATURE GRANULOCYTES ABS AUTO0.02NOHedrick Medical CenterImmature granulocytes/100 WBC (Bld)0.4 %0.0 - 0.5 %[facility] HealthcareInterpretation and review of laboratory resultsAbnormalNOHedrick Medical CenterLYMPHOCYTES ABSOLUTE AUTO2.0NOMS [facility] Lymphocytes/100 WBC (Bld)43.8 %20.5 - 60.0 %[facility] HealthH (RBC) [Entitic mass]33.5 pg26.7 - 34.0 pgNOCox BransonHC (RBC) [Mass/Vol]32.4 g/dL29.9 - 35.2 g/dLNOHedrick Medical CenterMCV (RBC) [Entitic vol]103.3 jOZnuu12.0 - 99.0 fLNOHedrick Medical CenterMONOCYTES ABSOLUTE AUTO0.3NOMS HealthcareMonocytes/100 WBC (Bld)6.9 % 1.7 - 12.0 %NOMSaint Mary'S Health CenterNEUTROPHILS ABSOLUTE AUTO2.0NOMS [facility] Neutrophils/100 WBC (Bld)43.6 %43.0 - 75.0 %[facility] HospitalPlatelet mean volume (Bld) [Entitic vol]9.0 fLLow9.5 - 13.5 fLNOHedrick Medical CenterTBH EO #0.2NOMS HealthcareTB [id number] [facility]S Medical CenterTB RBC2.75LowNOMS Barney Children'S Medical CenterTB WBC4.5NOHedrick Medical CenterCLINISYNCNOMS HealthcareInsurance Correspondenceon 68-77-8269Ggtftbsnl [id number]#1.00TIFSt. Vincent HospitalOncology Noteon 86-22-3512Miosfszs NotePer phone call from Claudette/[facility] [phone] - she wondered if we had the prescription number to pat jarad's Kisqali. Claudette is not sure what happened [...] taking it but doesn't have any to take.[facility] HospitalComment on above:Result Comment: Electronically Signed By: Jane FARMER, Yolande Houston\.br\Date and Time Signed: 05/20/23 14:48 ESTPhysician Orderon 58-52-6451Mmsvvoube Order [id number]#1.00TIFSt. Vincent HospitalComment on above:Other Comment: wrong patientPhysician Orderon 05-14-2023 Physician [id number]#1.00TIFSt. Vincent HospitalOutside Labson 29-99-2049Arigjqi Labs [id number]#1.00TIFSt. Vincent HospitalOutside [id number]#1.00TIFSt. Vincent HospitalPhysician Orderon 30-20-0847Iqdjxvmke Order [id number]#1.00TIFSt. Vincent HospitalPhysician [id number]#1.00TIFPremier Health Miami Valley Hospital NorthConsent for Treatmenton 99-14-8541Baghkqe for [id number]#1.00TIFSt. Vincent HospitalOncology Noteon 80-79-3485Emqmtsqc NoteOncology Reel Tender Office Visit/Treatment Note Current Patient Status/Reason: Pt in with transportation operations manager per pt request for scheduled clinicvisit. Dr. Caldera saw pt. Treatment Plan: PET at [facility] soon, since pt is corrina lift. CBC, CMP, iron studies, Folate, epo,[id number] before f/u (send orders to [facility]). Kisqali 200 mg 3 PO daily 3 weeks on 1 week off. Follow-Up Appointment Info/Referrals: F/U in 6 weeks. Resources Offered: Pt voiced no questions or concerns to me when I asked. I instructed that [facility] would call for PET, and lab orders would be faxed to [facility]. Pt voiced understanding of same. Pt also to continue Anastrozole PO daily.[facility] Comment on above:Result Comment: Electronically Signed By: Magda FARMER, Annia\.br\Date and Time Signed: 05/01/23 15:05ESTOncology Progress Noteon 87-89-3893Truvyrsj Progress NotePatient: MARLEN STALEY Age: 72 years Sex: Female [...] is unknown as she was adopted. Outpatient medicationsinclude furosemide, lisinopril, simvastatin, fish oil. Noted by [...] IMPROVEMENT, WITH DECREASE IN SIZE AND DECREASE INUPTAKE OF ACTIVITY BY THE PREVIOUSLY NOTED RIGHT [...] at home. She continues to care for herhusband and is struggling with keeping up on chores still taking her Kisqali labs stable overall, her B12 was low and she would like to start b12 pills vs. injections 01/30/23 she spent some time in [facility] maybe last month. They didnt have a bed afer her last hospitalization (for uti) a few weeks ago and so upon discharge went to [facility]. Her friends are concerned she will not be safe if she goes home. she seems to have a bad memory. her is also in [facility] continues [facility], despite our meticulous calender she seems to have trouble remembering to taek this when she was at home. She insists she is getting better and wants to go home. 05/01/23 she is in [facility]. she is convinced she will be able to be independent again. She is not walking even with a walker. continues kisquali. anemic on recent labs. Review of Systems Constitutional: Negative. Eye: Negative. Ear/Nose/Mouth/Throat: Negative. Respiratory: Negative. Cardiovascular: Negative. Gastrointes (more content not included)...NormalElyria Memorial Hospital Outside Labson 46-69-1331Hogqsqs Labs [id number]#1.00TIFSt. Vincent HospitalONC - Otheron 98-39-7509XOZ - Other [id number]#1.00[facility] HospitalPhysician Orderon 43-94-9670Wiguhpani Order [id number]#1.00[facility] HospitalConsent for Treatmenton 64-09-4574Rirpzin for Treatment [id number]#1.00[facility] Methodist HospitalOncology Noteon 94-07-5777Yuxtjxbw NoteOncology Reel Tender Office Visit/Treatment Note Current Patient Status/Reason: Patient here with friend, Karolina for scheduled clinic visit. I accompanied Dr. Caldera and medical student Nj in room. Patient is currently at [facility]. Labs done at [facility] 01/28/2023 reviewed. Disease process and treatment options discussed. Patient informs she like [facility] and having people around to socialize with. Physical exam done. Treatment Plan: continue Kisqali, monthly labs, PET 04/24/2023 Follow-Up Appointment Info/Referrals: after PET Resources Offered: Orders for [facility] regarding monthly labs filled out. Patient denies any questions/concerns at this time.[facility] HospitalComment on above:Result Comment: Electronically Signed By: Jane FARMER, Yolande Houston\.br\Date and Time Signed: 01/30/23 17:07 EDTOncology Progress Noteon 29-29-6208Vqklxwke Progress NotePatient: MARLEN STALEY Age: 72 years Sex: Female [...] is unknown as she was adopted. Outpatient medicationsinclude furosemide, lisinopril, simvastatin, fish oil. Noted by [...] IMPROVEMENT, WITH DECREASE IN SIZE AND DECREASE INUPTAKE OF ACTIVITY BY THE PREVIOUSLY NOTED RIGHT [...] at home. She continues to care for herhusband and is struggling with keeping up on chores still taking her Kisqali labs stable overall, her B12 was low and she would like to start b12 pills vs. injections 01/30/23 she spent some time in [facility] maybe last month. They didnt have a bed afer her last hospitalization (for uti) a few weeks ago and so upon discharge went to [facility]. Her freinds are concerned she will not be safe if she goes home. she seems to have a bad memory. her is also in [facility] continues kisquali, despite our meticulous calender she seems to have trouble remembering to taek this when she was at home. She insists she is getting better and wants to go home. Review of Systems Constitutional: Negative. Eye: Negative. Ear/Nose/Mouth/Throat: Negative. Respiratory: Negative. Cardiovascular: Negative. Gastrointestinal: Negative. Genitourinary: Negative. Hematology/Lymphatics: Negative. Endocrine: Negative. Immunologic: Negative. Musculoskeletal: Negative. Integumentary: Negative. Neur (more content not included)...NormalCritical Access Hospitaler Brandenburg CenterOutside Labs on 35-97-6960Pbjqeao [id number]#1.00TIFF St[facility] HospitalOutside Labs [id number]#1.00TIFFNormFirelands Regional Medical Center South CampusOutside Labson 59-72-6247Yhsrywb Labs [id number]#1.00TIFFNoTogus VA Medical CenterCoding Queryon 18-87-2963Lqtsbo Query From: Torres FARMER, Monika To: Zaheer Sloan [...] Caller Name: MARLEN STALEY; Caller Number: H St. Vincent HospitalON - Otheron 12-09-9028BOM - Other [id number]#1.00CD:[address] [place] [address] - Otheron 62-91-9890QYJ - Other [id number]#1.00CD:[address] [place], [place] [address]Discharge Instructionson 27-53-1057Shdhklfhj Instructions [id number]#1.00CD:[address] [place], [place] [address]Transfer Documentson 95-80-3361Hdzgxmzx Documents [id number]#1.00CD:[address] [place], [place] [address]CHEMISTRYOrdered By: Elma Khan on 90-30-9643Czagsgu [Mass/Vol]111 mg/dL High55 - 99 mg/dLNORMAN SPECIALTY HOSPITAL – [facility] POC SubsectionComment on above:Result Comment: Notified RN/YOVANA Device [id number] Interpretation CodeFT POC SubsectionPOC User [id number] Interpretation CodeFTMC POC SubsectionPOC Username JUAN HENNESSYInvalid Interpretation [facility] POC SubsectionCapillary Glucose POCon 23-59-2189Fthaihd [Mass/Vol]111 mg/nKOcnx08-27Cmdzfc [facility] Comment on above:Result Comment: Notified RN/YASMINEerformed By: #### [id number] #### [facility] [address] [place], [place] [address]Mgcawxxpm Note-Nursingon 52-56-8066Asfnzsard Note-Nursing MARLEN STALEY :1950 Visit Date:12/20/2022 Inpatient [...] Test Results None Pharmacy Information [facility] [place] Discharge Instructions Please return to ER if symptoms change or worsen. Previously Scheduled Follow-Up Appointments Saturday 2:45 PM EDT With: Senthil Caldera DO Where: [facility] New Follow Up Appointments after Discharge Follow Up with Azar HANKS, Rickey Lynn, NIKOLE When: Where: [address] [place] [address]- Medications What How Much When Why Instructions [...] By Mouth Once a day (at bedtime) 12/23/2022@ 9 PM Test Results CBC BMP WBC: [...] tests. When your results (more content not included)...[facility] Urineon 92-00-8759Vsuvomff identified Cx Nom (U)Microbiology PROCEDURE: Urine Culture [R1] SOURCE: U CleanCatch BODY SITE: COLLECTED DATE/TIME: 12/20/2022 17:18 EDT RECEIVED DATE/TIME: 12/20/2022 17:49 EDT START DATE/TIME: 12/20/2022 17:49 EDT FREE TEXT SOURCE: Pedro Nava DO, DO, Kevin M. FINAL REPORTS Final Report [] Verified Date/Time: 12/22/2022 07:10 EDT 1,000 cfu/ml Mixed skin contaminants Performing Locations R1: This test was performed at: [facility], [address] [place] [address], [address]- , , WlrrnxJsgaeeSt. Vincent HospitalComment on above:Performed By: #### [id number], [id number] ####[facility] [address] [place] [address]UGBCTSSIDVyudlux By: Elma Khan on 30-79-4243Wgrhwpz [Mass/Vol]155 mg/oXJayt08 - 99 mg/dLNORMAN SPECIALTY HOSPITAL – [facility] POC SubsectionComment on above:Result Comment: Notified RN/MDPOC Device [id number] Interpretation CodeFT POC SubsectionPOC User [id number] Interpretation CodeFT POC Subsection POC UsernameROBERTS, DANEKAInvalid Interpretation CodeNORMAN SPECIALTY HOSPITAL [facility] POC SubsectionGlucose [Mass/Vol]129 mg/bRDazn28 - 99 mg/dLNORMAN SPECIALTY HOSPITAL – [facility] POC SubsectionComment on above:Result Comment: Cleaned MeterPOC Device [id number] Interpretation CodeFT POC SubsectionPOC User [id number] Interpretation CodeFT POC Subsection POC UsernameMAVIRGINIA DIOPNInvalid Interpretation CodeNORMAN SPECIALTY HOSPITAL – [facility] POC Subsection Capillary Glucose POCon 67-70-5960Stpzbim [Mass/Vol]155 mg/jKXowy60-27AbppkcElyria Memorial HospitalComment on above:Result Comment: Notified RN/MDPerformed By: #### [id number], [id number], [id number], [id number], [id number] #### [facility] [address] [place] [address]Waercaj [Mass/Vol]129 mg/vXXxgc97-24PwfebwElyria Memorial Hospital Comment on above:Result Comment: Cleaned MeterPerformed By: #### [id number], [id number], [id number], [id number], [id number] #### [facility] [address] [place], [place] [address]Qkdyuoh [Mass/Vol]158 mg/bJPnee96-05UscvnkElyria Memorial Hospital Comment on above:Result Comment: Cleaned MeterPerformed By: #### [id number] #### [facility] [address] [place], [place] [address]Dsmmszw [Mass/Vol]144 mg/pIIlzt32-11ZmlvvyElyria Memorial Hospital Comment on above:Result Comment: Notified RN/MDPerformed By: #### [id number] #### [facility] [address], [place] [address]Aoaafhtgjyhojwvmf Note - Case Manageron 12-22-2022 Interdisciplinary Note - Case ManagerCRM spoke with patient. Patient was previous rounded on by Dr Sloan today. Spouse is also patient and is in other bed in room. Patient is alert and oriented. Whiteboard updated and CRM contact # provided. Discussed with patient that [facility] does not have any beds and referral was made to [facility] but they do not take [employer]. Referral was sent to [facility] for both her and her spouse and they have accepted and started precert. Patient becomes upset and states that is to far away and to far for her Family to visit. Discussed only other closer facility is [facility] that takes her and spouse insurance. Patient states she will moose her insurance man and her friend Karolina and discuss withthem. Okay for CRM to call Karolina and daughter and update them as well. She does not want CRM to cancel [facility] referral yet a she needs to talk to Karolina. CRM called both Karolina and daughter Helen, no answer and left CRM contact number and VM on dc plans. 1406- Daughter Helen called CRM back and is agreeable to [facility] and states it is close for her to visitparents. She will also talk to Karolina and she is she can get patient to agree. CRM updated patient and she still says she needs to talk to Karolina and not to moose her daughter any more as she makes herown decisions. 1504- Karolina called CRM back and she spoke with patient and she is now agreeable to go to [facility] as well as for her spouse to go there and updated her precert was obtained for [facility] and will dc tomorrow as she feels today is to soon for the patient and may upset her too much. 1510- CRM to room and spoke with patient and she is agreeable to go to [facility] SN[facility] now. Discussed precert was obtained and could possible dc today. Patient became upset and said not today she and he spouse need time to get ready and her friend needs to bring her things. Will stay tonight and plan for dc in the am. CRM did explain this to spouse as well and he is agreeable.[facility] HospitalComment on above:Result Comment: Electronically Signed By: Enoc FARMER, Jolanta\.br\Date and Time Signed: 12/22/22 16:25 EDTProgress Note-Physicianon 86-45-7779Xnexqelu Note-PhysicianAssessment/Plan 1. UTI (urinary tract infection) (N39.0: Urinary [...] mg/dL High (12/22/22 07:31:00) POC Device SN: [id number] (12/22/22 07:31:00) POC User ID: [id number] (12/22/22 07:31:00) POC Username: JANELLE RHODES (12/22/22 [...] Oral, Once a day (at bedtime), PRN Whiting 5/325 Tab, 1 tab(s), Oral, q4hr, PRN [...] a day (at bedtim (more content not included)...NormalElyria Memorial HospitalComment on above:Result Comment: Electronically Signed By: Zaheer Sloan DO.br\Date and Time Signed: 12/22/22 09:47 EDTAuto Diffon 61-76-5729Unhdismzn/100 WBC (Bld)2.6 %High 0.0-2.0E[facility] Memorial HospitalComment on above:Order Comment: Order Added by Discern Expert.Performed By: #### [id number], [id number], [id number], [id number], [id number] #### [facility] [address], [place] [address]Sbvyqmupm/Leukocytes Auto (Bld) [Pure # fraction]0.1 E9/LNormal 0.0-0.2FMercy Health Clermont HospitalComment on above:Order Comment: Order Added by Discern Expert.Performed By: #### [id number], [id number], [id number], [id number], [id number] #### [facility] [address] [place], [place] [address]Wdwuqqlexpc/100 WBC (Bld)2.5 %Normal0.0-8.0E[facility] Memorial HospitalComment on above:Order Comment: Order Added by Discern Expert.Performed By: #### [id number], 6008668, 1637388, [id number], [id number] #### [facility] [address], [place] [address]Jnivsdzjvqs/Leukocytes Auto (Bld) [Pure # fraction]0.1 E9/L Normal0.0-0.5FMercy Health Clermont HospitalComment on above:Order Comment: Order Added by Discern Expert.Performed By: #### [id number], [id number], [id number], [id number], [id number] #### [facility] [address] [place], [place] [address]Adnaodjaiux/100 WBC (Bld)42.1 %Xvbcbl46.0-50.0[facility] Memorial HospitalComment on above:Order Comment: Order Added by Discern Expert. Performed By: #### [id number], [id number], 0933056, [id number], [id number] #### [facility] [address] [place] [address]Kaberjjavih/Leukocytes Auto (Bld) [Pure # fraction]1.4 E9/L Normal1.0-4.0[facility] HospitalComment on above:Order Comment: Order Added by Discern Expert.Performed By: #### [id number], 5833232, 8299034, [id number], [id number] #### [facility] [address] [place] [address]Gxvovftxh/100 WBC (Bld)13.6 %Normal4.0-14.0[facility] Memorial HospitalComment on above:Order Comment: Order Added by Discern Expert.Performed By: #### [id number], 5262859, [id number], [id number], [id number] #### [facility] [address] [place] [address]Cxmcpokol/Leukocytes Auto (Bld) [Pure # fraction]0.4 E9/LNormal 0.2-1.0[facility] Memorial HospitalComment on above:Order Comment: Order Added by Discern Expert.Performed By: #### [id number], 7087831, 8634671, [id number], [id number] #### [facility] [address] [place] [address] 59362Wevipkmtytq/100 WBC (Bld)39.2 %Rrjpcj09.0-75.0[facility] Memorial HospitalComment on above:Order Comment: Order Added by Discern Expert. Performed By: #### 8601758, 3665347, 2701979, 200339340, 31441542 #### [facility] [address] [place] [address] 47588Maniuwwrqlv/Leukocytes Auto (Bld) [Pure # fraction]1.3 E9/LLow 2.0-7.5FMercy Health Clermont HospitalComment on above:Order Comment: Order Added by Discern Expert.Performed By: #### 7407966, 2555195, 9388811, 261848885, 59100154 #### [facility] [address], [place] [address]QHNpv 14-67-8540Gixuw gap [Moles/Vol]11 mmol/LNormal6-16[facility] HospitalComment on above:Performed By: #### 5178856, 5547768, 5872199, 832730551, 89247624 #### [facility] [address], [place] [address]Tomyvtc [Mass/Vol]8.9 mg/dLNormal8.9-11.1Fisher Brandenburg CenterComment on above:Performed By: #### 2418331, 2937798, 0857020, 859537074, 61500944 #### [facility] [address], [place] [address]Nltikcsv [Moles/Vol]112 mmol/JPyjn496-657NddjiqElyria Memorial HospitalComment on above:Performed By: #### 8930005, 3335478, 8258401, 795756140, 40724535 #### [facility] [address], [place] [address]EN9 [Moles/Vol]22 mmol/ZVqjoej38-01OyopztElyria Memorial Hospital Comment on above:Performed By: #### 1991430, 1927995, 4039639, 915014055, 05537200 #### [facility] [address], [place] [address]Ijcicpmibx [Mass/Vol]1.4 mg/dLHigh0.5-1.3FMercy Health Clermont HospitalComment on above:Performed By: #### 0212904, 8110180, 2913041, 338117035, 43676782 #### [facility] [address], [place] [address]Thbboql [Mass/Vol]102 mg/tEIzthkv45-562EmvbtjElyria Memorial HospitalComment on above:Result Comment: If this glucose result represents a fasting glucose, interpretation should refer tothe following reference range: 55-99 mg/dLPerformed By: #### 8237127, 3166925, 3599179, 223474718, 40370561 #### [facility] [address] [place] [address] 678[address]Szyfjgwxg [Moles/Vol]4.0 mmol/LNormal3.5-5.3FMercy Health Clermont HospitalComment on above:Performed By: #### 2699482, 3601946, 7117232, 803595932, 67746784 #### [facility] [address], [place] [address]Vichko [Moles/Vol]141 mmol/ZZhqaqz285-759KxygwiElyria Memorial HospitalComment on above:Performed By: #### 2401154, 4405398, 3026783, 254806674, 06123530 #### [facility] [address] [place] [address] 61090Nufe nitrogen [Mass/Vol]36 mg/dLHigh5-21[facility] HospitalComment on above:Performed By: #### 9226692, 0516482, 3604022, 231319651, 92934174 #### [facility] [address] [place] [address] 44915Lxlr nitrogen/Creatinine [Mass ratio]26 No FqygfFbwf12-11GnvxvlElyria Memorial HospitalComment on above:Performed By: #### 2051360, 0667094, 1034109, 644022133, 26829282 #### [facility] [address] [place] [address] 02115D Urineon 09-88-0419Rxnmjzlu identified Cx Nom (U)Microbiology PROCEDURE: Urine Culture [R1] SOURCE: U Cath BODY SITE: COLLECTED DATE/TIME: 12/19/2022 22:25 EDT RECEIVED DATE/TIME: 12/19/2022 23:48 EDT START DATE/TIME: 12/19/2022 23:49 EDT FREE TEXT SOURCE: Nurys Tong MD, David Tong MD, David FINAL REPORTS Final Report [] Verified Date/Time: 12/21/2022 08:58 EDT >100,000 cfu/ml Escherichia coli SUSCEPTIBILITY RESULTS LEGEND: S=Susceptible, N/R=Not Reported, Blank=Data not available, [...] Locations R1: This test was performed at: [facility], [address] [place] [address], [address]- , , LtbnrgTnvuhyElyria Memorial HospitalComment on above:Performed By: #### 7233235, 1164927, 8184220, 821500575, 71867537 #### [facility] [address] [place] [address] 36425DYL w/ Auto Diffon 17-73-1604Cfrdjchrxpv distribution width (RBC) [Ratio]18.4 %High10.9-14.2FMercy Health Clermont HospitalComment on above: Performed By: #### 9068543, 5169004, 3474932, 176867942, 47988225 #### [facility] [address] [place] [address] 96790Zvqfkezslw (Bld) [Volume fraction]26.8 %Low34.0-46.0[facility] HospitalComment on above:Performed By: #### 2044132, 0861585, 0006242, 763443421, 92082334 #### [facility] [address] [place] [address]Dfaazmvrjn (Bld) [Mass/Vol]9.3 g/dLLow12.0-16.0[facility] HospitalComment on above:Performed By: #### 8724121, 9487780, 3863622, 775700209, 18548052 #### [facility] [address] [place] [address] 45879JYJ (RBC) [Entitic mass]34.3 kzArea70.0-34.0[facility] HospitalComment on above:Performed By: #### 1764574, 3029993, 2279473, 424986168, 75101078 #### [facility] [address] [place] [address] 87[address]BVIR (RBC) [Mass/Vol]34.8 g/oPGoazwe24.4-36.0[facility] HospitalComment on above:Performed By: #### 9468146, 4448596, 1531458, 471119579, 65586975 #### [facility] [address] [place] [address] 91897ILE (RBC) [Entitic vol]98.6 nZRzledi85.0-100.0[facility] HospitalComment on above:Performed By: #### 0713783, 6057068, 6555957, 565042440, 60558925 #### [facility] [address] [place] [address]Rggoxyks mean volume (Bld) [Entitic vol]6.8 fLNormal6.4-10.8 [facility] HospitalComment on above:Performed By: #### 2930451, 8791609, 4023253, 233618138, 52953705 #### [facility] [address] [place] [address] 78808Xfnatcqlu (Bld) [#/Vol]201.0 E9/ZEkgtou903.0-500.0[facility] HospitalComment on above:Performed By: #### 5532152, 5853767, 8251390, 321974906, 35660604 #### [facility] [address] [place] [address] 698[address]GUL (Bld) [#/Vol]2.7 E12/LLow4.3-5.9[facility] Comment on above:Performed By: #### 0507289, 0758181, 9370542, 075316329, 39666420 #### [facility] [address] [place] [address] 859[address]ACB corrected for nucl RBC Auto (Bld) [#/Vol]3.3 E9/LLow 4.0-11.0[facility] HospitalComment on above:Performed By: #### 8705262, 5521756, 8574934, 281142039, 26089583 #### [facility] [address] [place] [address] 46368SHJQQDQFETdmxygt By: SYSTEM SYSTEM on 53-83-7335Sjeip gap [Moles/Vol]11 mmol/LNormal6 - 16 mEq/LFTMC RemisolCalcium [Mass/Vol]8.9 mg/dL Normal8.9 - 11.1 mg/dLNORMAN [facility] RemisolChloride [Moles/Vol]112 mmol/YMklq412 - 111 mmol/LFTMC RemisolCO2 [Moles/Vol]22 mmol/XUotjsh61 - 31 mmol/LFTMC Remisol Creatinine [Mass/Vol]1.4 mg/dLHigh0.5 - 1.3 mg/dLNORMAN SPECIALTY H[facility] RemisolGFR/1.73 sq M.predicted among non-blacks MDRD (S/P/Bld) [Vol rate/Area]40 mL/min/1.73 m2Low >=59mL/min/1.73 m2[facility] Chem SGlucose [Mass/Vol]102 mg/dJSlrfgv94 - 199 mg/dLNORMAN SPECIALTY H[facility] RemisolPotassium [Moles/Vol]4.0 mmol/LNormal3.5 - 5.3 mmol/LFTMC RemisolSodium [Moles/Vol]141 mmol/WGzscpq469 - 145 mmol/LFTMC RemisolUrea nitrogen [Mass/Vol] 36 mg/dLHigh5 - 21 mg/dLNORMAN SPECIALTY [facility] RemisolUrea nitrogen/Creatinine [Mass ratio]26 mg/khAtot35 - 20[facility] RemisolCHEMISTRYOrdered By: Gavino Lyle on 53-72-1320LvH1k (Bld) [Mass fraction]7.1 %High<=5.9%[facility] ChemAutoSSCapillary Glucose POCon 61-06-7518Viwbzxl [Mass/Vol]127 mg/yZQska80-52GcgiodElyria Memorial HospitalComment on above:Result Comment: Notified RN/MDPerformed By: #### [id number] #### [facility] [address] [place], [place] [address]Ksawlbd [Mass/Vol]160 mg/wHEoih18-91StrpvgElyria Memorial Hospital Comment on above:Result Comment: Notified RN/MDPerformed By: #### [id number] ####[facility] [address] [place] [address] Glucose [Mass/Vol]132 mg/nXFoyf84-26JqtcvqElyria Memorial HospitalComment on above: Result Comment: Notified RN/MDPerformed By: #### 1100820, 5755174, 3482886, 149948925, 31762899 #### [facility] [address], [place] [address]Urkjzvk [Mass/Vol]115 mg/oKJxxj45-67TjwqcyElyria Memorial Hospital Comment on above:Result Comment: Notified RN/MDPerformed By: #### [id number] #### [facility] [address], [place] [address]ZSOACNFPDMIltafvw By: [employer] SYSTEM on 95-40-4658Dscxafnuz/100 WBC (Bld)2.6 %High0.0 - 2.0 %[facility] HemeAutoSSBasophils/Leukocytes Auto (Bld) [Pure # fraction]0.1 E9/LNormal0.0 - 0.2 E9/LFTMC HemeAutoSSEosinophils/100 WBC (Bld)2.5 %Normal0.0 - 8.0 %[facility] HemeAutoSSEosinophils/Leukocytes Auto (Bld) [Pure # fraction]0.1 E9/LNormal0.0 - 0.5 E9/LFTMC HemeAutoSSLymphocytes/100 WBC (Bld)42.1 %Ytaknm18.0 - 50.0 %[facility] HemeAutoSSLymphocytes/Leukocytes Auto (Bld) [Pure # fraction]1.4 E9/LNormal1.0 - 4.0 E9/LFTMC HemeAutoSSMonocytes/100 WBC (Bld)13.6 %Normal4.0 - 14.0 %[facility] HemeAutoSSMonocytes/Leukocytes Auto (Bld) [Pure # fraction]0.4 E9/LNormal0.2 - 1.0 E9/LFTMC HemeAutoSSNeutrophils/100 WBC (Bld)39.2 %Cmdqwi12.0 - 75.0 %[facility] HemeAutoSSNeutrophils/Leukocytes Auto (Bld) [Pure # fraction]1.3 E9/LLow2.0 - 7.5 E9/LFTMC HemeAutoSSHEMATOLOGYOrdered By: Helen Durán on 19-74-0600Ouuxlwtfwzf distribution width (RBC) [Ratio]18.4 %High 10.9 - 14.2 %[facility] HemeAutoSSHematocrit (Bld) [Volume fraction]26.8 %Low34.0 - 46.0 %[facility] HemeAutoSSHemoglobin (Bld) [Mass/Vol]9.3 g/dLLow12.0 - 16.0 gm/dLFTMC HemeAutoSSMCH (RBC) [Entitic mass]34.3 inGxqi79.0 - 34.0 pgFTMC HemeAutoSSMCHC (RBC) [Mass/Vol]34.8 g/wMCkrljs47.4 - 36.0 gm/dLFTMC HemeAutoSSMCV (RBC) [Entitic vol]98.6 wTLmwvxy28.0 - 100.0 fLFTMC HemeAutoSSPlatelet mean volume (Bld) [Entitic vol]6.8 fLNormal6.4 - 10.8 fLFTMC HemeAutoSSPlatelets (Bld) [#/Vol]201.0 E9/RHjprjt106.0 - 500.0 E9/LFTMC HemeAutoSSRBC (Bld) [#/Vol]2.7 E12/LLow4.3 - 5.9 E12/LFC HemeAutoSSWBC corrected for nucl RBC Auto (Bld) [#/Vol]3.3 E9/LLow4.0 - 11.0 E9/LFGRADY [facility] TpfeXxyaTCWotQ8yxg 13-67-3173YaG3c (Bld) [Mass fraction]7.1 %High<=5.9[facility] HospitalComment on above: Performed By: #### 2872621, 1065035, 8949459, 145813325, 40134904 #### [facility] [address], [place] [address]Iluxnsygs Correspondence Officeon 15-29-8036Bvwbkgcfy Correspondence [id number]#1.00CD:127Normal [facility] CenterInterdisciplinary Note - OTon 12-21-2022 Interdisciplinary Note - OTOT AM-PAC 6 Clicks Score: = SNF. Pt [...] and safety with self care tasks and transfers.[facility] Interdisciplinary Note - Social Workeron 62-77-3394Lrjtrfvqhnhabpacx Note - Social WorkerThis BRONSON responded to a consult on regarding Advanced Directives. SW assisted with explanation of the AD documentation. Patient stated that she never mentioned wanting to complete an AD nor isshe interested in completing one now. Patient stated that it sounds like something her daughter said and herself. SW provided the patient with her contact information if she decides to want to complete this documentation while admitted to the hospital or once discharged. Patient denied any further needs at this time. SW will remain available as needed.[facility] HospitalMessage from Medicareon [id number] from Medicare [id number]#1.00CD:127NoTogus VA Medical CenterProgress Note-Physicianon 08-39-0650Azjgvfyj Note-PhysicianAssessment/Plan 1. UTI (urinary tract infection) (N39.0: Urinary tract infection, site not specified) ? Urine culture positive for E. coli, pansensitive ? We will continue Keflex as patient tolerated in the past ? We will continue to monitor for signs of improvement Ordered: Initial Hospital Care/Day Moderate 55 Minutes 02854 Sbsq Hospital Care/Day Straight Fwd 25 Minutes 42683 2. Age-related cognitive decline (R41.81: Age-related cognitive [...] 06:07:00) Lymph Auto: 42.1 % (12/21/22 06:07:00) [place] Auto: 13.6 % (12/21/22 06:07:00) Eos Auto: 2.5 % (12/21/22 06:07:00) Basophil Auto: 2.6 % High (12/21/22 06:07:00) Neutro Absolute: 1.3 E9/L Low (12/21/22 06:07:00) Lymph Absolute: 1.4 E9/L (12/21/22 06:07:00) [place] Absolute: 0.4 E9/L (12/21/22 06:07:00) Eos Absolute: [...] Lvl: 3.5 gm/dL (12/20 (more content not included)...NormalElyria Memorial HospitalComment on above:Result Comment: Electronically Signed By: Zaheer Sloan DO\.br\Date and Time Signed: 12/21/22 14:15 EDTeGFRon 12-21-2022 GFR/1.73 sq M.predicted among non-blacks MDRD (S/P/Bld) [Vol rate/Area]40 mL/min/1.73 m2Low>=59[facility] Memorial HospitalComment on above:Order Comment: Order added by Discern Expert.Result Comment: Chronic kidney disease could be indicated at eGFR's of less than 60 mL/min/1.73m2. Kidney failure is indicated at less than 15 mL/min/1.73m2.Performed By: #### 2158370, 4931961, 5716501, 444100964, 10605674 #### [facility] [address] [place] [address] 480[address]Mugq Diffon 37-79-4414Lsdocnjjc/100 WBC (Bld)3.5 %High0.0-2.0 [facility] HospitalComment on above:Order Comment: Order Added by Discern Expert.Performed By: #### 9544720, 8508527, 2687238, 121285021, 85184951 #### [facility] [address] [place] [address] 79[address]Yeubjbsjs/Leukocytes Auto (Bld) [Pure # fraction]0.1 E9/LNormal 0.0-0.2FMercy Health Clermont HospitalComment on above:Order Comment: Order Added by Discern Expert.Performed By: #### 2867493, 5902467, 1760491, 506745954, 16636061 #### [facility] [address] [place] [address] 45221Janqutvwgcu/100 WBC (Bld)1.3 %Normal0.0-8.0[facility] HospitalComment on above:Order Comment: Order Added by Discern Expert.Performed By: #### 4762315, 8957774, 4038420, 422432847, 62235417 #### [facility] [address] [place] [address] 805[address]Gkbuafwstup/Leukocytes Auto (Bld) [Pure # fraction]0.0 E9/L Normal0.0-0.5FMercy Health Clermont HospitalComment on above:Order Comment: Order Added by Discern Expert.Performed By: #### 3930310, 0917826, 4907709, 710622413, 03322716 #### [facility] [address] [place] [address] 798[address]Jifsfdnlkvd/100 WBC (Bld)28.4 %Mgtvpr64.0-50.0[facility] HospitalComment on above:Order Comment: Order Added by Discern Expert. Performed By: #### 4408610, 3070582, 8049029, 208380419, 16215894 #### [facility] [address] [place] [address] 92599Zkezrrnwgtx/Leukocytes Auto (Bld) [Pure # fraction]1.1 E9/L Normal1.0-4.0[facility] HospitalComment on above:Order Comment: Order Added by Discern Expert.Performed By: #### 4431951, 4339138, 9841294, 833075493, 51221263 #### [facility] [address] [place] [address] 24403Otdvlcovn/100 WBC (Bld)12.5 %Normal4.0-14.0[facility] HospitalComment on above:Order Comment: Order Added by Discern Expert.Performed By: #### 2836968, 0869016, 7128794, 906319423, 20157032 #### [facility] [address] [place] [address] 29258Svkmikrdl/Leukocytes Auto (Bld) [Pure # fraction]0.5 E9/LNormal 0.2-1.0[facility] HospitalComment on above:Order Comment: Order Added by Discern Expert.Performed By: #### 1187257, 1018541, 1513426, 293173737, 75871340 #### [address] [address]Hdqrhothvig/100 WBC (Bld)54.3 %Kbzddd04.0-75.0[facility] HospitalComment on above:Order Comment: Order Added by Discern Expert. Performed By: #### 0715725, 1761288, 5719471, 187048286, 08566289 #### [facility] [address] [place] [address] 09963Ctovospcqji/Leukocytes Auto (Bld) [Pure # fraction]2.1 E9/L Normal2.0-7.5FMercy Health Clermont HospitalComment on above:Order Comment: Order Added by Discern Expert.Performed By: #### 3960429, 4155943, 3822446, 441063458, 56149894 #### [facility] [address], [place] [address]RXTkf 66-31-1761Qgleiewhwx [Mass/Vol]1.3 mg/dLNormal0.5-1.3 [facility] HospitalComment on above:Performed By: #### 8404111, 6701498, 2261407, 506362970, 91529413 #### [facility] [address], [place] [address]Otdd nitrogen [Mass/Vol]36 mg/dLHigh5-21[facility] HospitalComment on above:Performed By: #### 3546637, 4945292, 6617164, 585988526, 03251572 #### [facility] [address], [place] [address]Vrib nitrogen/Creatinine [Mass ratio]28 No YxyqzMxtk32-61FxuddoElyria Memorial HospitalComment on above:Performed By: #### 5530585, 9577520, 7959300, 777828422, 32396046 #### [facility] [address], [place] [address]Wsrur gap [Moles/Vol]13 mmol/LNormal6-16[facility] HospitalComment on above:Performed By: #### 5520397, 1576642, 9264921, 028938598, 38710042 #### [facility] [address], [place] [address]Svbwmnh [Mass/Vol]9.6 mg/dLNormal8.9-11.1FMercy Health Clermont HospitalComment on above:Performed By: #### 5741060, 4371835, 9144110, 402984521, 56889154 #### [facility] [address], [place] [address]Zajboclj [Moles/Vol]108 mmol/RYligfb320-166HtlyilElyria Memorial HospitalComment on above:Performed By: #### 3782034, 8915917, 1584047, 392889961, 64983918 #### [facility] [address], [place] [address]IO1 [Moles/Vol]21 mmol/QGbkill76-77MqlfvhElyria Memorial Hospital Comment on above:Performed By: #### 5944483, 0251511, 3961544, 495001828, 25565402 #### [facility] [address], [place] [address]Lqnsajk [Mass/Vol]136 mg/dOYyswtr50-239CstymsElyria Memorial HospitalComment on above:Result Comment: If this glucose result represents a fasting glucose, interpretation should refer tothe following reference range: 55-99 mg/dLPerformed By: #### 6289028, 9475650, 7908258, 210750475, 47760163 #### [facility] [address], [place] [address]Ubsiswkqq [Moles/Vol]4.2 mmol/LNormal3.5-5.3FMercy Health Clermont HospitalComment on above:Performed By: #### 9440728, 2490834, 1859449, 381787731, 99387432 #### [facility] [address] [place] [address]Fkxzkm [Moles/Vol]138 mmol/CKbyxwx378-100OatiwpElyria Memorial HospitalComment on above:Performed By: #### 1847967, 6634272, 8134008, 686654498, 68016579 #### [facility] [address] [place] [address] 30[address]YQR w/ Auto Diffon 52-73-8071Romqxocqhmg distribution width (RBC) [Ratio]19.0 %High10.9-14.2FMercy Health Clermont HospitalComment on above: Performed By: #### 1092048, 4299860, 2885597, 540862068, 35558951 #### [facility] [address], [place] [address]Djvbjjoqzg (Bld) [Volume fraction]31.3 %Low34.0-46.0[facility] HospitalComment on above:Performed By: #### 4751131, 8119113, 9946837, 970120791, 31277962 #### [facility] [address] [place] [address] 25858Chkncmgdmv (Bld) [Mass/Vol]10.4 g/dLLow12.0-16.0[facility] HospitalComment on above:Performed By: #### 9886360, 5768364, 2849883, 272666370, 15600416 #### [facility] [address] [place] [address] 594[address]MWP (RBC) [Entitic mass]33.3 ugLqngxn63.0-34.0[facility] HospitalComment on above:Performed By: #### 2781506, 0992295, 4411009, 618441403, 40598948 #### [facility] [address] [place] [address] 13723KIDS (RBC) [Mass/Vol]33.3 g/iGIjpcim36.4-36.0[facility] HospitalComment on above:Performed By: #### 2617602, 8444195, 8839330, 455949210, 07545055 #### [facility] [address] [place] [address] 60361HHC (RBC) [Entitic vol]99.8 mDNmqanh93.0-100.0[facility] HospitalComment on above:Performed By: #### 8007486, 3347137, 4741058, 749573773, 32779072 #### [facility] [address] [place] [address]Lixvfwus mean volume (Bld) [Entitic vol]6.8 fLNormal6.4-10.8 [facility] HospitalComment on above:Performed By: #### 9927697, 4750580, 4948028, 336585632, 28602307 #### [facility] [address] [place] [address] 130[address]Jydcxqiqu (Bld) [#/Vol]212.0 E9/YQhrgfe995.0-500.0[facility] Medical CenterComment on above:Performed By: #### 8479955, 1436054, 4306506, 642967658, 85314054 #### [facility] [address], [place] [address]EPA (Bld) [#/Vol]3.1 E12/LLow4.3-5.9[facility] Comment on above:Performed By: #### 0125221, 3806116, 0466072, 163136129, 10108492 #### [facility] [address], [place] [address]WPW corrected for nucl RBC Auto (Bld) [#/Vol]3.9 E9/LLow 4.0-11.0[facility] HospitalComment on above:Performed By: #### 5879603, 1542380, 3840577, 249896077, 88740405 #### [facility] [address], [place] [address]ULTUROAXTNepycjw By: SYSTEM SYSTEM on 04-14-2720Fseqrrjb I.cardiac [Mass/Vol]10.20 pg/nMRbphpk28.10 - 27.10 pg/mLFTMC RemisolAlbumin [Mass/Vol]3.5 g/dLNormal3.3 - 5.0 gm/dLFTMC RemisolAlbumin/Globulin [Mass ratio] 0.9 {ratio}Low1.1 - 2.2[facility] RemisolALP [Catalytic activity/Vol]101 [iU]/dHigh21 - 98 Int._Unit/LFTMC RemisolALT No additional P-5'-P [Catalytic activity/Vol]20 [iU]/dNormal6 - 46 Int._Unit/LFTMC RemisolAnion gap [Moles/Vol]13 mmol/LNormal6 - 16 mEq/LFT[facility] RemisolAST [Catalytic activity/Vol]18 [iU]/dNormal5 - 43 Int._Unit/LFTMC RemisolBilirubin [Mass/Vol]0.9 mg/dLNormal0.0 - 1.1 mg/dLFTMC RemisolBilirubin.direct [Mass/Vol]0.1 mg/dLNormal0.1 - 0.4 mg/dLFTMC Remisol Bilirubin.indirect [Mass or moles/Vol]0.8 mg/dLNormal0.1 - 0.9 mg/dLFTMC Remisol Calcium [Mass/Vol]9.6 mg/dLNormal8.9 - 11.1 mg/dLFTMC RemisolChloride [Moles/Vol]108 mmol/VTmrjgd880 - 111 mmol/LFTMC RemisolCO2 [Moles/Vol]21 mmol/L Eihgfh18 - 31 mmol/LFTMC RemisolCreatinine [Mass/Vol]1.3 mg/dLNormal0.5 - 1.3 mg/dLFTMC RemisolGFR/1.73 sq M.predicted among non-blacks MDRD (S/P/Bld) [Vol rate/Area]43 mL/min/1.73 m2Low>=59mL/min/1.73 m2FTMC Chem SGlobulin (S) [Mass/Vol]3.8 g/dLNormal1.4 - 4.0 gm/dLFTMC RemisolGlucose [Mass/Vol]136 mg/dL Lijmbt59 - 199 mg/dLFTMC RemisolPotassium [Moles/Vol]4.2 mmol/LNormal3.5 - 5.3 mmol/LFTMC RemisolProtein [Mass/Vol]7.3 g/dLNormal6.0 - 7.8 gm/dLFTMC Remisol Sodium [Moles/Vol]138 mmol/FNvhavb569 - 145 mmol/LFTMC RemisolTroponin I.cardiac [Mass/Vol]9.80 pg/mLLow10.10 - 27.10 pg/mLFTMC RemisolUrea nitrogen [Mass/Vol] 36 mg/dLHigh5 - 21 mg/dLFTMC RemisolUrea nitrogen/Creatinine [Mass ratio]28 mg/bwLzbu30 - 20FTMC RemisolConsent for Treatmenton 18-10-2134Mxlbqyl for [id number]#1.00CD:[address] [place], [place] [address]Discharge Instructionson 28-24-2749Vgcfjezwk Instructions [id number]#1.00CD:127NormalFisher [facility]onton Medical CenterED Clinical Summaryon 81-87-4666PP Clinical Summary [place] [id number] ED Clinical Summary Person Information Name: MARLEN STALEY/[place] Age: 72 Years : 1950 Sex: Female Language: Singaporean PCP: Rickey Askew MD Marital Status: Phone: [phone] MRN: Visit Id: Visit Reason: Dysuria; Weakness or fatigue; UTI Speciality: Acuity: 3 Enc Type: Inpatient Med Service: Medical Arrival: 12/20/2022 15:04:00 Discharge: LOS: 000 03:52 Checkin: 12/20/2022 15:04:00 Checkout: 12/20/2022 18:56:43 Dispo Type: [facility] EVENTS: Event Name Event Status Request [...] 18:40:53 Patient Care Request 12/20/2022 18:52:04 ADDRESS: [address] [place] [address] [address] [place] [id number] PHYS DOC NOTES: MEDICAL INFORMATION: Prescriptions Given: [...] 2:Age-related cognitive decline; 3:History of breast cancer; 4:HTN(hypertension); 5:HypercholesteremiaNormalFisher [facility] Clinical Summary [address] [address] ED Clinical Summary Person Information Name: MARLEN STALEY/[place] Age: 72 Years : 1950 Sex: Female Language: Singaporean PCP: Rickey Askew MD Marital Status: Phone: [phone] MRN: Visit Id: Visit Reason: Medical problem [...] 12/20/2022 00:50:56 12/20/2022 00:50:56 12/20/2022 00:50:56 ADDRESS: [address] [place] [address] [address] [place] [id number] PHYS DOC NOTES: MEDICAL INFORMATION: Prescriptions Given: New Medications [facility], [address] [place], [place] [id number], [phone] cephalexin (Keflex 500 mg Cap) 1 Capsules [...] EDUCATION INFORMATION: Instructions: Urinary Tract Infection, Adult, [id number]; Anemia; Dehydration, Adult, Ylmp-by-Dech Follow up: With: Address: When: [place] [address] Business (1) In 2 days 12/21/2022 DIAGNOSIS: 1:Generalized weakness; 2:Frequent falls; 3:Anemia; 4:Dehydration; 5:Urinary tract infectionVitaly Doe Medical CenterED Note-Physicianon [id number] Note-PhysicianBasic Information Time Seen: Pedro Nava DO 12/20/2022 15:31 Chief Complaint Pt came in via [facility] for dysuria and weakness. Pt states [...] daughter wants her to go into a care home as they can no longer be cared for in the home.She has no complaints at this time. Review [...] chief complaint of confusion, no longer able tocare for self. Vital stable, the patient is [...] refills Vitamin D3 20 (more content not included)...[facility] Comment on above:Result Comment: Electronically Signed By: Pedro Nava DO\.br\Date and Time Signed: 12/20/22 19:22 EDTED Note-PhysicianBasic Information Time Seen: David Tong MD 12/19/2022 20:40 Chief Complaint says she has been getting increasingly weaker. on wait list for [facility] History of Present Illness 72-year-old female [...] to be in assisted living at the [facility]. She does have a history of diabetes. She denies hypertension. She denies heart lung or renal disease. She does not believe she has ever had any abdominal surgery. She deniesany chills or fever. There is no cough [...] I explained to the patient again today thatwe have adequate reason to admit her to the hospital because of the weakness and the new compression fracture. We also discussed the possibility of a urinary tract infection. She states that she does not want to be admitted to the hospital she wants to go home. We will take advantage of the time ofarranging a ride home to give her some [...] day(s), # 28 cap(s), Refills(s) 0, Pharmacy: [id number], 167.6, cm, 12/19/22 20:43:00 EDT, Height/Length Dosing, 87.1, kg, 12/19/22 20:43:00 EDT, Weight Dosing cephalexin, 500 mg = 1 cap(s), Cap, Oral, Once, Stop date 12/19/22 23:45:00 EDT, STAT, Start date 12/19/22 23:45:00 EDT, 12/19/22 23:45:00 EDT Sodium Chloride 0.9% intravenous solution, 1,000 mL, Soln-IV, IV, Once, Stop date 12/19/22 23:44:00EDT, STAT, Start date 12/19/22 23:44:00 EDT, Infuse [...] Askew In 2 days 12/21/2022 EDT [address] [place] [address] Business(1) Additional Instructions: Patient Education Urinary Tract Infection, Adult, Qhda-vt-Jtjv Anemia Dehydration, Adult, Brsh-rp-Ztkk Problem List/Past Medical History Ongoing Age-related cognitive decline Axillary adenopathy Chronic edema Diabetes History of breast cancer History of healed fragility fracture HTN (hypertension) Hypercholesteremia Invasive ductal carcinoma of right breast Multiple closed fractures of pelvis with stable disruption of pelvic ring with routine healing, subsequent encounter Vitamin D deficiency Historical No qualifying data Procedure/Surgical (more content not included)...[facility]Comment on above:Result Comment: Electronically Signed By: Ran HANKS, David\.br\Date and Time Signed: 12/20/22 00:40 EDTED Patient Education Noteon [id number] [facility] NoteNoPe[facility] Patient Education NoteHematology Anemia Anemia is a condition in which [...] Follow these instructions at home: ? Take daiy-oey-buslpel and prescription medicines only as told by [...] blood cells or enough of a substance inyour red blood cells that carries oxygen (hemoglobin). ? Symptoms may occur suddenly or develop slowly. ? If your anemia is mild, you may not have symptoms. ? This condition is diagnosed with blood tests, a medical history, and a physical exam. Other testsmay be needed. ? Treatment for this condition depends on the cause of the anemia. This information is not intended to replace advice given to you by your health care provider. Make sure you discuss any questions you have with your health care provider. Document Revised: 02/20/2022 Document Reviewed: 03/15/2020 ZMP Patient Education ? 2022 [employer]. Nutrition Dehydration, Adult Dehydration is condition in [...] Peeing (urinating) a lot. (more content not included)...[facility] Patient Summaryon [id number] Patient Summary [place] [id number] Patient Discharge Instructions Person Information Name: MARLEN STALEY Age: 72 Years Arrival Date: 12/20/2022 15:04:00 Discharge Diagnosis: 1:UTI (urinary tract infection); 2:Age-related cognitive decline; 3:History ofbreast cancer; 4:HTN (hypertension); 5:Hypercholesteremia Primary Care Physician: Rickey Askew MD Provider Information Primary Provider: Pedro Nava DO Advanced Group Account Director:None The exam and treatment you received in the Emergency Department were for an urgent problem and are not intended as complete care. It is important that you follow up with a doctor, nurse practitioner,or physician?s real estate legal assistant for ongoing care. If your symptoms become worse or you do not improve as expected and you are unable to reach your usual health care provider, you should return to the Emergency Department. We are available 24 hours a day. MARLEN STALEY has been given the following list of patient education materials, prescriptions andfollow-up instructions: Follow-up Instructions: In the event that this physician does not participate in your insurance network, please consult with your insurance company to find a nearby participating provider. Patient Education Materials: A MESSAGE TO ALL PATIENTS REGARDING OPIOIDS PRESCRIPTION OPIOIDS: WHAT YOU NEED TO KNOW Prescription opioids can be used to help relieve okryyojl-ir-gtkghj pain and are often prescribed following a [...] and have fewer risks and side effects. Optionsmay include: ? Pain relievers such as acetaminophen, [...] unused prescription opioids: Find your community drug take- back program or yourpharmacy mail-back program, or flush them down the toilet, following guidance from the Food and Drug Administration (www.fda.gov/Drugs/ResourcesForYou). ? Visit www.cdc.gov/drugoverdose to learn about the risks of opioids abuse and overdose. ? If you believe you may be struggling with addiction, tell your health day care assistant and ask for guidance or call SAMHSA?S National Helpline at 3-742-605-PKDN. v Source: US Department of Health and Human Services/Center for Diseas (more content not included)...[facility] Patient Summary [address] [address] Patient Discharge Instructions Person Information Name: MARLEN STALEY Age: 72 Years Arrival Date: 12/19/2022 20:39:01 Discharge Diagnosis: 1:Generalized weakness; 2:Frequent falls; 3:Anemia; 4:Dehydration; 5:Urinary tract infection Primary Care Physician: Rickey Askew MD Provider Information Primary Provider: David Tong MD Advanced Group Account Director:None The exam and treatment you received in the Emergency Department were for an urgent problem and are not intended as complete care. It is important that you follow up with a doctor, nurse practitioner,or physician?s real estate legal assistant for ongoing care. If your symptoms become worse or you do not improve as expected and you are unable to reach your usual health care provider, you should return to the Emergency Department. We are available 24 hours a day. MARLEN STALEY has been given the following list of patient education materials, prescriptions andfollow-up instructions: Follow-up Instructions: With: Address: When: Rickey Aske[place] [address] Business (1) In 2 days 12/21/2022 In the event that this physician does not participate in your insurance network, please consult with your insurance company to find a nearby participating provider. Patient Education Materials: Urinary Tract Infection, Adult, Bemm-vw-Yjaj; Anemia; Dehydration, Adult, Obto-am-Nrms A MESSAGE TO ALL PATIENTS REGARDING OPIOIDS PRESCRIPTION OPIOIDS: WHAT YOU NEED TO KNOW Prescription opioids can be used to help relieve xynadexi-mr-ymweje pain and are often prescribed following a [...] and have fewer risks and side effects. Optionsmay include: ? Pain relievers such as acetaminophen, [...] unused prescription opioids: Find your community drug take- back program or yourpharmacy mail-back program, or flush them down the toilet, following guidance from the Food and Drug Administration (www.fda.gov/Drugs/ResourcesForYou). ? Visit www.cdc.gov/drugoverdose to learn about the risks of opioids abuse and overdose. ? If you believe you may be struggling with addiction, tell your health care (more content not included)...[facility] HospitalHEMATOLOGYOrdered By: SYSTEM SYSTEM on 60-71-7509Yrhfmzpth/100 WBC (Bld)3.5 %High0.0 - 2.0 %[facility] HemeAutoSSBasophils/Leukocytes Auto (Bld) [Pure # fraction]0.1 E9/LNormal0.0 - 0.2 E9/LFTMC HemeAutoSSEosinophils/100 WBC (Bld)1.3 %Normal0.0 - 8.0 %[facility] HemeAutoSSEosinophils/Leukocytes Auto (Bld) [Pure # fraction]0.0 E9/LNormal0.0 - 0.5 E9/LFTMC HemeAutoSSLymphocytes/100 WBC (Bld)28.4 %Tnkusx59.0 - 50.0 %[facility] HemeAutoSSLymphocytes/Leukocytes Auto (Bld) [Pure # fraction]1.1 E9/LNormal1.0 - 4.0 E9/LFTMC HemeAutoSSMonocytes/100 WBC (Bld)12.5 %Normal4.0 - 14.0 %[facility] HemeAutoSSMonocytes/Leukocytes Auto (Bld) [Pure # fraction]0.5 E9/LNormal0.2 - 1.0 E9/LFTMC HemeAutoSSNeutrophils/100 WBC (Bld)54.3 %Khlknb56.0 - 75.0 %[facility] HemeAutoSSNeutrophils/Leukocytes Auto (Bld) [Pure # fraction]2.1 E9/LNormal2.0 - 7.5 E9/LFTMC HemeAutoSSHEMATOLOGYOrdered By: Gavino Lyle on 12-20-2022 Erythrocyte distribution width (RBC) [Ratio]19.0 %High10.9 - 14.2 %[facility] HemeAutoSSHematocrit (Bld) [Volume fraction]31.3 %Low34.0 - 46.0 %[facility] HemeAutoSSHemoglobin (Bld) [Mass/Vol]10.4 g/dLLow12.0 - 16.0 gm/dLFTMC HemeAutoSSMCH (RBC) [Entitic mass]33.3 eoGwrzbp46.0 - 34.0 pgFTMC HemeAutoSSMCHC (RBC) [Mass/Vol]33.3 g/gHWpoukq74.4 - 36.0 gm/dLNORMAN SPECIALTY HOSPITAL – [facility] HemeAutoSSMCV (RBC) [Entitic vol]99.8 gEItjmgj16.0 - 100.0 fLNORMAN SPECIALTY HOSPITAL – [facility] HemeAutoSSPlatelet mean volume (Bld) [Entitic vol]6.8 fLNormal6.4 - 10.8 Count includes the [facility] HemeAutoSSPlatelets (Bld) [#/Vol]212.0 E9/NUruoeu319.0 - 500.[address] HemeAutoSSRBC (Bld) [#/Vol]3.1 E12/LLow4.3 - 5.[address] HemeAutoSSWBC corrected for nucl RBC Auto (Bld) [#/Vol]3.9 E9/LLow4.0 - 11.[address] HemeAutoSSHep Func Panelon 12-20-2022 Bilirubin.direct [Mass/Vol]0.1 mg/dLNormal0.1-0.4FMercy Health Clermont Hospital Comment on above:Performed By: #### [id number], 3280414, 3138019, [id number], 32042045 #### [facility] [address] [place], [place] [address]Vyqwrwgfe.indirect [Mass or moles/Vol]0.8 mg/dLNormal0.1-0.9 [facility] HospitalComment on above:Performed By: #### 4137542, 3349317, 3030255, 485545855, 28662362 #### [facility] [address], [place] [address]Tvkutsw [Mass/Vol]3.5 g/dLNormal3.3-5.0[facility] HospitalComment on above:Performed By: #### 5669594, 6147714, 2564924, 843799855, 77912506 #### [facility] [address], [place] [address]Cwewhbb/Globulin (S) [Mass conc ratio]0.9Low1.1-2.2FMercy Health Clermont HospitalComment on above:Performed By: #### 1177060, 4199173, 9248647, 682495552, 93662501 #### [facility] [address], [place] [address]KUS [Catalytic activity/Vol]101 Int._Unit/INffz15-03TmkoegElyria Memorial HospitalComment on above:Performed By: #### 7351568, 6728304, 2276920, 062868175, 82564101 #### [facility] [address] [place] [address]MOI No additional P-5'-P [Catalytic activity/Vol]20 Int._Unit/L Normal6-46[facility] HospitalComment on above:Performed By: #### 2404957, 7160915, 7891297, 873999014, 98470289 #### [facility] [address] [place] [address]BKS [Catalytic activity/Vol]18 Int._Unit/LNormal5-43[facility] HospitalComment on above:Performed By: #### 3467296, 3902794, 3355168, 244825713, 17459661 #### [facility] [address] [place] [address]Wcapfrlhg [Mass/Vol]0.9 mg/dLNormal0.0-1.1FMercy Health Clermont HospitalComment on above:Performed By: #### 9738339, 9575941, 5415942, 799475458, 88008956 #### [facility] [address] [place] [address]Yrwkpjgz (S) [Mass/Vol]3.8 g/dLNormal1.4-4.0[facility] HospitalComment on above:Performed By: #### 8541283, 1567437, 1897097, 593406443, 88798209 #### [facility] [address] [place] [address]Iubdnau [Mass/Vol]7.3 g/dLNormal6.0-7.8[facility] HospitalComment on above:Performed By: #### 5272492, 3991581, 2441908, 347821029, 53571197 #### [facility] [address] [place], [place] [address]Gjubovcapt - Microbiology and Antimicrobial susceptibility Ordered By: Ninfa Sawyer on 35-47-5922Swycuuwu identified Cx Nom (U)1,000 cfu/ml Mixed skin contaminantsAshtabula County Medical CenterMonitor Recordon 67-85-0496Dwqauqu [id number]#1.00CD:127 [facility] HospitalPre-Arrival Noteon 47-37-3702Wzl-Arrival Note Pre-Arrival Summary Name: UTI, ncems Current Date: 12/20/2022 15:06:09 EDT Gender: Date of : Age: Pre-Arrival Type: EMS ETA: 12/20/2022 15:31:00 EDT Primary Care Physician: Presenting Problem: Pre-Arrival User: Delia Tsai RN Referring Source: Location: [place] Completion Date/Time: 12/20/2022 15:01:00 [facility] Emergency Department Pre-Hospital Report Form Vital Signs: Pre-Hospital Report: Treatment in Route: Response to Treatment: Misc. Issues:[facility] HospitalTroponin 0 Hr.on 12-20-2022 Troponin I.cardiac [Mass/Vol]9.80 pg/mLLow10.10-27.10[facility] Comment on above:Result Comment: The 95% CI (Confidence Interval) PPV (Positive Predictive Value) for myocardial infarction in females is 38 pg/mL, in males 51 pg/mL. The results should be used in conjunction with clinical conditions of myocardial infarction. (Access High Sensitivity Troponin I Instructions For Use, Gaby [employer], November 2017)Performed By: #### 5661977, 2958920, 2310624, 729417593, 42289227 #### [facility] [address], [place] [address]Sggxasqe 3 Hr.on 96-75-5018Ymoncucs I.cardiac [Mass/Vol]10.20 pg/sSQaxnfv79.10-27.10[facility] HospitalComment on above:Result Comment: The 95% CI (Confidence Interval) PPV (Positive Predictive Value) for myocardial infarction in females is 38 pg/mL, in males 51 pg/mL. The results should be used in conjunction with clinical conditions of myocardial infarction. (Access High Sensitivity Troponin I Instructions For Use, Gaby [employer], November 2017)Performed By: #### 7632827, 8200495, 4211517, 161277033, 25550313 #### [facility] [address], [place] [address]UC With Cult Reflexon 81-10-4736Pmgbaptkr Ql (U)NegativeNormal NegativeElyria Memorial HospitalComment on above:Performed By: #### 00354204, 9136257 ####[place] [address] [place], [place] [address]Vbyiymj (U)CLEARNormalClearElyria Memorial HospitalComment on above: Performed By: #### 03114076, 2129959 ####[address] [address] [place], [place] [address]Qwsbj (U)STRAWAbnormalYellowElyria Memorial HospitalComment on above:Performed By: #### 86485401, 2848845 ####[place] [address] [place] [address] Epithelial cells.squamous LM.HPF (Urine sed) [#/Area]4-4Srjdri3-9Dytaou Brandenburg CenterComment on above:Performed By: #### 32749825, 7885792 ####[place] [address] [place], [place] [address]Qktsvyo Test strip (U) [Mass/Vol]NegativeNormalNegativeElyria Memorial HospitalComment on above:Performed By: #### 83748588, 7531251 ####[address] [address]Vodilptavh Ql (U)TRACEAbnormal NegativeElyria Memorial HospitalComment on above:Performed By: #### 97348314, 8985065 ####[address] [address]Cpdxrbe (U) [Mass/Vol]NegativeNormalNegativeElyria Memorial Hospital Comment on above:Performed By: #### 79901023, 3541364 ####[address] [address]Wfdwfcj.plasma/Silex.RBC (Bld) [Mass ratio]3-1Nkeucn0-9Ykbjrq [facility] CenterComment on above: Performed By: #### 81921888, 8477634 ####[address] [address]Jwetmwb Ql (U)NegativeNormalNegative [facility] HospitalComment on above:Performed By: #### 56445849, 8976810 ####[address] [address]jV (U)5.5 [pH]Invalid Interpretation Code5.0-9.0[facility] HospitalComment on above:Performed By: #### 43709342, 0683314 ####[address] [address]Hktbfsr (U) [Mass/Vol]NegativeNormal NegativeElyria Memorial HospitalComment on above:Performed By: #### 91220418, 6099699 ####[address] [address]Loplkqqo gravity (U) [Rel density]<=1.005Invalid Interpretation Code 1.005-1.030[facility] HospitalComment on above:Performed By: #### 88577668, 5500881 ####[address] [address]Fiik of Urine collection methodClean CatchNormalElyria Memorial HospitalComment on above:Performed By: #### 19438263, 4372501 ####[facility] [address] [place], [place] [address]Vkuhqumnhuxm Qn (U)0.2 {Tj'U}/dLNormal0.0-1.0[facility] HospitalComment on above: Performed By: #### 28045646, 8590157 ####[address] [address]DVE Auto Ql (U)1+AbnormalNegative [facility] HospitalComment on above:Performed By: #### 87400869, 4184624 ####[address] [address]MVC LM.HPF (Urine sed) [#/Area]5-34Oiyxueuy9-7XwcxymMercy Health Clermont HospitalComment on above:Performed By: #### 87959403, 0384046 ####[address] [address]VM Spec DescCatheterNormalElyria Memorial HospitalComment on above:Result Comment: Minicath specimenPerformed By: #### 8131613, 0533881, 6450587, 090948558, 27144688 #### [facility] [address] [place] [address]EZFIMOOHRWOtrqnet By: Lisette Medina on 27-08-8361Dmcachrcn Ql (U)Negative (12/20/22 5:18 PM)NormalNegativeNORMAN SPECIALTY [facility] UA Auto SSClarity (U)Clear (12/20/22 5:18 PM)NormalClearFGRADY MEMORIAL [facility] – [facility]HA UA Auto SSColor (U)Straw *ABN* (12/20/22 5:18 PM)Invalid Interpretation CodeYellowNORMAN SPECIALTY HOSPITAL – [facility] UA Auto SSEpithelial cells.squamous LM.HPF (Urine sed) [#/Area]0-2 /HPFNormal0-2/HPFNORMAN SPECIALTY HOSPITAL [facility] UA Auto SS Glucose Test strip (U) [Mass/Vol]Negative (12/20/22 5:18 PM)NormalNegativeNORMAN SPECIALTY HOS[facility] UA Auto SSHemoglobin Ql (U)Trace *ABN* (12/20/22 5:18 PM)Invalid Interpretation CodeNegativeNORMAN SPECIALTY [facility] UA Auto SSKetones (U) [Mass/Vol]Negative (12/20/22 5:18 PM)NormalNegativeNORMAN SPECIALTY [facility]ITAL [facility] UA Auto SSLithium.plasma/Silex.RBC (Bld) [Mass ratio]0-3 /HPFNormal0-3/HPFNORMAN SPECIALTY HOSPITAL [facility] UA Auto SSNitrite Ql (U)Negative (12/20/22 5:18 PM)NormalNegativeNORMAN SPECIALTY [facility]OS[facility]ITAL [facility] UA Auto SSpH (U)5.5 *NA* (12/20/22 5:18 PM)Invalid Interpretation Code5.0 - 9.0[facility] UA Auto SSProtein (U) [Mass/Vol]Negative (12/20/22 5:18 PM)NormalNegativeNORMAN SPECIALTY [facility]ITAL [facility] UA Auto SSSpecific gravity (U) [Rel density] <=1.005 *NA* (12/20/22 5:18 PM)Invalid Interpretation Code1.005 - 1.030[facility] UA Auto SSUA Spec DescClean Catch (12/20/22 5:18 PM)NormalNORMAN SPECIALTY HOSPITAL – [facility] UA Auto SSUrobilinogen Qn (U)0.0089046 {Tj'U}/dLNormal0.0 - 1.0 EU/dLNORMAN SPECIALTY HOSPITAL – [facility] UA Auto SSWBC Auto Ql (U)1+ *ABN* (12/20/22 5:18 PM)Invalid Interpretation CodeNegativeNORMAN SPECIALTY [facility]OSPITAL [facility] UA Auto SSWBC LM.HPF (Urine sed) [#/Area]6-15 /HPFInvalid Interpretation Code0-5/HPFNORMAN SPECIALTY HOSPITAL – [facility] UA Auto SSXR Chest Single Viewon [id number] Chest Single ViewExam Date/Time: 12/20/2022 16:16 EDT Reason for Exam: [...] Ka,r in mGy = na DAP = [facility] [place] [facility]XR Chest Single ViewExam Date/Time: 12/19/2022 21:38 EDT Reason for Exam: [...] Ka,r in mGy = na DAP = [facility] [place] HospitaleGFRon 15-10-2152ATD/1.73 sq M.predicted among non-blacks MDRD (S/P/Bld) [Vol rate/Area]43 mL/min/1.73 m2Low >=[address] [place], [place] [address]Comment on above:Order Comment: Order added by Discern Expert.Result Comment: Chronic kidney disease could be indicated at eGFR's of less than 60 mL/min/1.73m2. Kidney failure is indicated at less than 15 mL/min/1.73m2.Performed By: #### 0928499, 5329771, 4123741, 549417135, 51340376 #### [facility] [address] [place], [place] [address]Ohvt Diffon 91-91-2649Dlksmlbkn/100 WBC (Bld)0.4 %Normal0.0-2.0 [facility] HospitalComment on above:Order Comment: Order Added by Discern Expert.Performed By: #### 8225492, 3645263, 2310315, 141977668, 90612899 #### [facility] [address] [place] [address]Ijgfiffgh/Leukocytes Auto (Bld) [Pure # fraction]0.0 E9/LNormal 0.0-0.2FMercy Health Clermont HospitalComment on above:Order Comment: Order Added by Discern Expert.Performed By: #### 5277828, 0103240, 1766918, 316600710, 00927415 #### [facility] [address] [place] [address]Srvhtxdtkax/100 WBC (Bld)1.6 %Normal0.0-8.0[facility] HospitalComment on above:Order Comment: Order Added by Discern Expert.Performed By: #### 1165239, 8432266, 5314159, 758737239, 21197765 #### [facility] [address] [place] [address]Zdfkiwpxehg/Leukocytes Auto (Bld) [Pure # fraction]0.1 E9/L Normal0.0-0.5FMercy Health Clermont HospitalComment on above:Order Comment: Order Added by Discern Expert.Performed By: #### 6716805, 7419943, 0943223, 872149821, 24622102 #### [facility] [address] [place] [address]Vabahuldjij/100 WBC (Bld)34.4 %Aeiyyt09.0-50.0[facility] HospitalComment on above:Order Comment: Order Added by Discern Expert. Performed By: #### 1788431, 8652537, 7563563, 090777617, 90984180 #### [facility] [address] [place] [address]Chygzmrzmfh/Leukocytes Auto (Bld) [Pure # fraction]1.2 E9/L Normal1.0-4.0[facility] HospitalComment on above:Order Comment: Order Added by Discern Expert.Performed By: #### 8837226, 3291860, 6311955, 223842883, 66712396 #### [facility] [address], [place] [address]Fidqvyemw/100 WBC (Bld)12.8 %Normal4.0-14.0[facility] HospitalComment on above:Order Comment: Order Added by Discern Expert.Performed By: #### 7116588, 0636972, 9730602, 365727763, 82159846 #### [facility] [address], [place] [address]Gpcrhfezo/Leukocytes Auto (Bld) [Pure # fraction]0.4 E9/LNormal 0.2-1.0[facility] HospitalComment on above:Order Comment: Order Added by Discern Expert.Performed By: #### 4783895, 3907844, 4783664, 022614730, 95431537 #### [facility] [address] [place] [address]Hnfczpvtmqz/100 WBC (Bld)50.8 %Jvxiby37.0-75.0[facility] HospitalComment on above:Order Comment: Order Added by Discern Expert. Performed By: #### 1952247, 9341361, 1133247, 612396162, 25250358 #### [facility] [address] [place] [address]Fimnhvfwege/Leukocytes Auto (Bld) [Pure # fraction]1.7 E9/LLow 2.0-7.5FMercy Health Clermont HospitalComment on above:Order Comment: Order Added by Discern Expert.Performed By: #### 8957763, 1916148, 2669151, 206671842, 87944349 #### [facility] [address] [place] [address]EHZtq 87-57-5311Hkytv gap [Moles/Vol]10 mmol/LNormal6-16[facility] HospitalComment on above:Performed By: #### 7836442, 3910122, 6056277, 255144978, 12650824 #### [facility] [address], [place] [address]Naxizpb [Mass/Vol]9.4 mg/dLNormal8.9-11.1FMercy Health Clermont HospitalComment on above:Performed By: #### 7885335, 5310212, 1526712, 427728234, 86505308 #### [facility] [address], [place] [address]Sewmxiqb [Moles/Vol]111 mmol/KLlhhlv894-566RzsrdhElyria Memorial HospitalComment on above:Performed By: #### 7044445, 6391117, 5001657, 788029922, 72103858 #### [facility] [address], [place] [address]HP0 [Moles/Vol]25 mmol/KJklvoe92-53JvgtppElyria Memorial Hospital Comment on above:Performed By: #### 1439769, 9644663, 8818711, 908452026, 73355609 #### [facility] [address], [place] [address]Rbirjjmnhz [Mass/Vol]1.4 mg/dLHigh0.5-1.3FMercy Health Clermont HospitalComment on above:Performed By: #### 4777813, 0981339, 2786798, 179016484, 17824577 #### [facility] [address] [place], [place] [address]Vklbzxj [Mass/Vol]165 mg/pGOicmif19-439GjgcueElyria Memorial HospitalComment on above:Result Comment: If this glucose result represents a fasting glucose, interpretation should refer tothe following reference range: 55-99 mg/dLPerformed By: #### 2060342, 6458893, 6062290, 114797967, 74722900 #### [facility] [address] [place], [place] [address]Ikxwjexfl [Moles/Vol]4.6 mmol/LNormal3.5-5.3FMercy Health Clermont HospitalComment on above:Performed By: #### 6313724, 7084762, 6750262, 191501105, 20580648 #### [facility] [address] [place], [place] [address]Spmvlz [Moles/Vol]141 mmol/AKyrfxu199-078GlbgrvElyria Memorial HospitalComment on above:Performed By: #### 6780672, 8849090, 9435518, 651518102, 26465926 #### [facility] [address] [place], [place] [address]Hdma nitrogen [Mass/Vol]36 mg/dLHigh5-21E[facility]ria Memorial HospitalComment on above:Performed By: #### 6843765, 6949307, 3940768, 353616336, 69318192 #### [facility] [address] [place], [place] [address]Dvbz nitrogen/Creatinine [Mass ratio]26 No YlusiKmji00-88CcmipkElyria Memorial HospitalComment on above:Performed By: #### 1043747, 4539727, 4715628, 227091448, 17842142 #### [facility] [address] [place] [address]AFH w/ Auto Diffon 57-21-9951Jphwyvmvtpd distribution width (RBC) [Ratio]18.9 %High10.9-14.2FMercy Health Clermont HospitalComment on above: Performed By: #### 6261370, 0517346, 9420907, 588566997, 63056553 #### [facility] [address] [place] [address]Larobagauo (Bld) [Volume fraction]32.2 %Low34.0-46.0[facility] Memorial HospitalComment on above:Performed By: #### 5957181, 9190048, 4727285, 968609754, 88969437 #### [facility] [address] [place], [place] [address]Mjkjodppol (Bld) [Mass/Vol]10.8 g/dLLow12.0-16.0[facility] Memorial HospitalComment on above:Performed By: #### 1732769, 1716895, 5408229, 362592832, 21599763 #### [facility] [address] [place], [place] [address]DQO (RBC) [Entitic mass]33.5 gdJhryik69.0-34.0[facility] Memorial HospitalComment on above:Performed By: #### 6988293, 4918532, 0018734, 636481505, 82207574 #### [facility] [address] [place] [address]SSHM (RBC) [Mass/Vol]33.4 g/mNLxxetb51.4-36.0[facility] Memorial HospitalComment on above:Performed By: #### 5399403, 8422470, 7294361, 816538910, 98210592 #### [facility] [address] [place] [address]TPC (RBC) [Entitic vol]100.5 zLWabr71.0-100.0[facility] Memorial HospitalComment on above:Performed By: #### 6764524, 6627431, 6330030, 538476723, 15659750 #### [facility] [address] [place] [address]Dmtlqafg mean volume (Bld) [Entitic vol]7.0 fLNormal6.4-10.8 [facility] HospitalComment on above:Performed By: #### 3286065, 8715135, 0643706, 997858644, 15867755 #### [facility] [address] [place] [address]Kllyqofcu (Bld) [#/Vol]204.0 E9/DJkazjq177.0-500.0[facility] HospitalComment on above:Performed By: #### 1662438, 1445898, 1498867, 120225147, 84600181 #### [facility] [address] [place] [address]JFE (Bld) [#/Vol]3.2 E12/LLow4.3-5.9[facility] Comment on above:Performed By: #### 5871789, 3413150, 5925139, 274055545, 35212832 #### [facility] [address] [place], [place] [address]XQD corrected for nucl RBC Auto (Bld) [#/Vol]3.4 E9/LLow 4.0-11.0[facility] Memorial HospitalComment on above:Performed By: #### 2994887, 6180269, 8321763, 756966014, 01864543 #### [facility] [address] [place], [place] [address]VKYNJBPRWBxuesab By: SYSTEM SYSTEM on 47-39-2582Dhbpfpi [Mass/Vol]3.5 g/dLNormal3.3 - 5.0 gm/dLFTMC RemisolAlbumin/Globulin [Mass ratio] 1.0 {ratio}Low1.1 - 2.2[facility] RemisolALP [Catalytic activity/Vol]110 [iU]/dHigh21 - 98 Int._Unit/LFTMC RemisolALT No additional P-5'-P [Catalytic activity/Vol]20 [iU]/dNormal6 - 46 Int._Unit/LFTMC RemisolAnion gap [Moles/Vol]10 mmol/LNormal6 - 16 mEq/LFTMC RemisolAST [Catalytic activity/Vol]19 [iU]/dNormal5 - 43 Int._Unit/LFTMC RemisolBilirubin [Mass/Vol]0.4 mg/dLNormal0.0 - 1.1 mg/dLFTMC RemisolBilirubin.direct [Mass/Vol]0.1 mg/dLNormal0.1 - 0.4 mg/dLFTMC Remisol Bilirubin.indirect [Mass or moles/Vol]0.3 mg/dLNormal0.1 - 0.9 mg/dLFTMC Remisol Calcium [Mass/Vol]9.4 mg/dLNormal8.9 - 11.1 mg/dLFTMC RemisolChloride [Moles/Vol]111 mmol/WUwoheo687 - 111 mmol/LFTMC RemisolCO2 [Moles/Vol]25 mmol/L Sjlmxq53 - 31 mmol/LFTMC RemisolCreatinine [Mass/Vol]1.4 mg/dLHigh0.5 - 1.3 mg/dLFT RemisolGFR/1.73 sq M.predicted among non-blacks MDRD (S/P/Bld) [Vol rate/Area]40 mL/min/1.73 m2Low>=59mL/min/1.73 m2[facility] Chem SGlobulin (S) [Mass/Vol]3.5 g/dLNormal1.4 - 4.0 gm/dLFTMC RemisolGlucose [Mass/Vol]165 mg/dL Ciquli26 - 199 mg/dLFT RemisolMagnesium [Mass/Vol]2.0 mg/dLNormal1.3 - 2.4 mg/dLFTMC RemisolPotassium [Moles/Vol]4.6 mmol/LNormal3.5 - 5.3 mmol/LFTMC RemisolProtein [Mass/Vol]7.0 g/dLNormal6.0 - 7.8 gm/dLFT RemisolSodium [Moles/Vol]141 mmol/FAojhmk802 - 145 mmol/LFTMC RemisolTroponin I.cardiac [Mass/Vol]9.40 pg/mLLow10.10 - 27.10 pg/mLFT RemisolUrea nitrogen [Mass/Vol]36 mg/dLHigh5 - 21 mg/dLNOR[facility]TY [facility] RemisolUrea nitrogen/Creatinine [Mass ratio]26 mg/mg High10 - 20[facility] RemisolCOAGULATIONOrdered By: Evert Cordoba on 39-13-0240tABF Coag (PPP) [Time]26.7 aHijpxl12.1 - 36.5 second(s)[facility] Auto CoagINR Coag (PPP) [Relative time]1.0 {INR}Invalid Interpretation CodeNORMAN SPECIALTY H[facility]ITAL [facility] Auto CoagPT Coag (PPP) [Time]11.5 sNormal9.4 - 12.5 second(s)[facility] Auto CoagConsent for Treatmenton 28-43-3344Ntliwkl for Treatment [id number]#1.00CD:[address] [place], [place] [address]HEMATOLOGYOrdered By: SYSTEM SYSTEM on 71-51-0122Entwqukhd/100 WBC (Bld) 0.4 %Normal0.0 - 2.0 %[facility] HemeAutoSSBasophils/Leukocytes Auto (Bld) [Pure # fraction]0.0 E9/LNormal0.0 - 0.2 E9/LFTMC HemeAutoSSEosinophils/100 WBC (Bld)1.6 %Normal0.0 - 8.0 %[facility] HemeAutoSSEosinophils/Leukocytes Auto (Bld) [Pure # fraction]0.1 E9/LNormal0.0 - 0.5 E9/LFTMC HemeAutoSSLymphocytes/100 WBC (Bld) 34.4 %Cgwiii08.0 - 50.0 %[facility] HemeAutoSSLymphocytes/Leukocytes Auto (Bld) [Pure # fraction]1.2 E9/LNormal1.0 - 4.0 E9/LFTMC HemeAutoSSMonocytes/100 WBC (Bld) 12.8 %Normal4.0 - 14.0 %[facility] HemeAutoSSMonocytes/Leukocytes Auto (Bld) [Pure # fraction]0.4 E9/LNormal0.2 - 1.0 E9/LFTMC HemeAutoSSNeutrophils/100 WBC (Bld) 50.8 %Hiznyz85.0 - 75.0 %[facility] HemeAutoSSNeutrophils/Leukocytes Auto (Bld) [Pure # fraction]1.7 E9/LLow2.0 - 7.5 E9/LFTMC HemeAutoSSHEMATOLOGYOrdered By: Evert Cordoba on 39-67-7892Jxgjxyffzwa distribution width (RBC) [Ratio]18.9 %High 10.9 - 14.2 %[facility] HemeAutoSSHematocrit (Bld) [Volume fraction]32.2 %Low34.0 - 46.0 %[facility] HemeAutoSSHemoglobin (Bld) [Mass/Vol]10.8 g/dLLow12.0 - 16.0 gm/dL [facility] HemeAutoSSMCH (RBC) [Entitic mass]33.5 tmZzkxwy04.0 - 34.0 pgFTMC HemeAutoSSMCHC (RBC) [Mass/Vol]33.4 g/vZRtbxsk01.4 - 36.0 gm/dLFTMC HemeAutoSS MCV (RBC) [Entitic vol]100.5 nFXrsj67.0 - 100.0 fLNOR[facility] HemeAutoSSPlatelet mean volume (Bld) [Entitic vol]7.0 fLNormal6.4 - 10.8 fLNORMAN SPECIALTY [facility]ITAL [facility] HemeAutoSSPlatelets (Bld) [#/Vol]204.0 E9/XFgswvc054.0 - 500.0 E9/[facility] HemeAutoSSRBC (Bld) [#/Vol] 3.2 E12/LLow4.3 - 5.9 E12/[facility] HemeAutoSSWBC corrected for nucl RBC Auto (Bld) [#/Vol]3.4 E9/LLow4.0 - 11.0 E9/[facility] HemeAutoSSHep Func Panelon 12-19-2022 Albumin [Mass/Vol]3.5 g/dLNormal3.3-5.0[facility] Memorial HospitalComment on above:Performed By: #### 8501278, 0327638, 1885631, 028627819, 61868783 #### [facility] [address] [place], [place] [address]Uxqbzwj/Globulin (S) [Mass conc ratio]1.0Low1.1-2.2FMercy Health Clermont HospitalComment on above:Performed By: #### 1144572, 3549529, 0380669, 513785006, 72579314 #### [facility] [address] [place], [place] [address]RRD [Catalytic activity/Vol]110 Int._Unit/GCtkk71-34LpjqwbElyria Memorial HospitalComment on above:Performed By: #### 0760365, 5764331, 7130942, 918942342, 44966068 #### [facility] [address] [place], [place] [address]MIT No additional P-5'-P [Catalytic activity/Vol]20 Int._Unit/L Normal6-46[facility] Memorial HospitalComment on above:Performed By: #### 3017594, 0148657, 3165186, 934832360, 64958618 #### [facility] [address] [place] [address]GHH [Catalytic activity/Vol]19 Int._Unit/LNormal5-43[facility] HospitalComment on above:Performed By: #### 7279961, 6103175, 8895369, 000764273, 63038858 #### [facility] [address] [place] [address]Okdiomfwc [Mass/Vol]0.4 mg/dLNormal0.0-1.1FMercy Health Clermont HospitalComment on above:Performed By: #### 4566134, 3218930, 5240134, 399333519, 69533349 #### [facility] [address] [place] [address]Ckjsstoxe.direct [Mass/Vol]0.1 mg/dLNormal0.1-0.4FMercy Health Clermont HospitalComment on above:Performed By: #### 2565532, 4208492, 9276585, 028478640, 58190976 #### [facility] [address] [place] [address]Nsnzpygpr.indirect [Mass or moles/Vol]0.3 mg/dLNormal0.1-0.9 [facility] HospitalComment on above:Performed By: #### 0307838, 0590092, 1203724, 388758302, 33898189 #### [facility] [address] [place] [address]Punldqqs (S) [Mass/Vol]3.5 g/dLNormal1.4-4.0[facility] HospitalComment on above:Performed By: #### 0094106, 2681524, 5253616, 123923688, 84096787 #### [facility] [address] [place] [address]Gyerupc [Mass/Vol]7.0 g/dLNormal6.0-7.8[facility] Memorial HospitalComment on above:Performed By: #### 1459917, 7708889, 0036372, 300041552, 29285386 #### [facility] [address] [place], [place] [address]Dnhisqjpph - Microbiology and Antimicrobial susceptibility Ordered By: Jeaneth Morfin on 52-59-3799Qiylcrrr identified Cx Nom (U)>100,000 cfu/ml Gram Negative Glynn Expeller Operator speciesAshtabula County Medical CenterMagnesium on 59-69-6245Recupkcpq [Mass/Vol]2.0 mg/dLNormal1.3-2.4[facility] CenterComment on above:Performed By: #### 5852116, 2465030, 4033870, 009919195, 49352683 #### [facility] [address] [place], [place] [address]Pjggdbi Recordon 84-73-4381Bikhvfx Record [id number]#1.00CD:127NormalElyria Memorial HospitalPT & PTTon 11-55-3034bFPT Coag (PPP) [Time]26.7 second(s)Rcvucv73.1-36.5 [facility] HospitalComment on above:Result Comment: Parameter 15 days - 4 weeks 1 - [...] same coagulation reagent and instrumentation as [facility]. Currently there are no coagulation studies available worldwide for children to 14 days, andno normal ranges. Heparin therapeutic range (represented by Anti-Factor Xa activity of 0.2 - 0.4 U/mL) corresponds to PTT of 56.6 - 109.0 sec.Performed By: #### 1657425, 7431710, 9619208, 413803965, 71196369 #### [facility] [address] [place], [place] [address]MYT Coag (PPP) [Relative time]1.0 {INR}Invalid Interpretation CodeRenesukhdev Brandenburg CenterComment on above:Result Comment: INR results are specifically intended to assess patients stabilized on long-term Anticoagulation therapy suggested INR?s ?Less Intensive Anticoagulation? 2.0 ? 3.0 Conventional Range 3.0 ? 4.5Performed By: #### 7985929, 5641171, 1416368, 137658999, 51209830 #### [facility] [address] [place], [place] [address]EC Coag (PPP) [Time]11.5 second(s)Normal9.4-12.5Fisher Brandenburg CenterComment on above:Result Comment: 15 days - 4 weeks 1 - [...] same coagulation reagent and instrumentation as [facility]. Currently there are no coagulation studies available worldwide for children to 14 days, andno normal ranges.Performed By: #### 8829593, 2871101, 8298400, 788886553, 17491660 #### [facility] [address] [place], [place] [address]Aga-Pnrradx Noteon 40-13-6633Fgy-Arrival NotePre-Arrival Summary Name: aram freed Current Date: 12/19/2022 20:42:25 EDT Gender: Female Date of : Age: 72 Pre-Arrival Type: EMS ETA: 12/19/2022 20:55:00 EDT Primary Care Physician: Presenting Problem: gen. weakness Pre-Arrival User: Javier Flood RN Referring Source: Location: [place] Completion Date/Time: 12/19/2022 20:25:00 [facility] Emergency Department Pre-Hospital Report Form Vital Signs: 140/83, 89pulse, 96% Pre-Hospital Report: generalized weakness. awaiting bed at [facility]. pt wanted seen . Treatment in Route: Response to Treatment: Misc. Issues:NormalElyria Memorial HospitalTroponin 0 Hr.on 12-19-2022 Troponin I.cardiac [Mass/Vol]9.40 pg/mLLow10.10-27.10[facility] Comment on above:Result Comment: The 95% CI (Confidence Interval) PPV (Positive Predictive Value) for myocardial infarction in females is 38 pg/mL, in males 51 pg/mL. The results should be used in conjunction with clinical conditions of myocardial infarction. (Access High Sensitivity Troponin I Instructions For Use, Gaby Belvue, November 2017)Performed By: #### 0351796, 0050233, 2740517, 659550851, 53484065 #### [facility] [address] [place], [place] [address]QR With Cult Reflexon 59-75-2560Asebcmqo LM Ql (Urine sed)2+ /HPFAbnormalTraceElyria Memorial HospitalComment on above:Performed By: #### 8558139, 3897471, 6098850, 943741873, 61933586 #### [facility] [address] [place], [place] [address]Pggshtsjh Ql (U)NegativeNormalNegativeElyria Memorial HospitalComment on above:Performed By: #### 0193306, 4755586, 1498174, 113015207, 51675220 #### [facility] [address] [place], [place] [address]Ibpbacd (U)CLEARNormalClearElyria Memorial HospitalComment on above:Performed By: #### 5529889, 5789857, 2353877, 264104618, 12664345 #### [facility] [address] [place] [address]Almft (U)YELLOWNormalYellowElyria Memorial HospitalComment on above:Performed By: #### 8751373, 7948646, 7013242, 209345374, 02853413 #### [facility] [address] [place] [address]Wruzifnfnq cells.squamous LM.HPF (Urine sed) [#/Area]0-2Normal 0-2Fisher [facility]enburg CenterComment on above:Performed By: #### 9892554, 7346790, 6723999, 452807708, 19936967 #### [facility] [address] [place] [address]Bbrbfnq Test strip (U) [Mass/Vol]NegativeNormalNegativeElyria Memorial HospitalComment on above:Performed By: #### 6647510, 7274201, 8194652, 323589793, 09138838 #### [facility] [address] [place] [address]Bryqpygisk Ql (U)NegativeNormalNegativeElyria Memorial HospitalComment on above:Performed By: #### 7988599, 9386065, 1029135, 724295117, 33182641 #### [facility] [address] [place] [address]Leaheqv (U) [Mass/Vol]NegativeNormalNegativeElyria Memorial HospitalComment on above:Performed By: #### 0555451, 3909728, 8800110, 848771471, 05538907 #### [facility] [address] [place] [address]Ktgxbkd.plasma/Silex.RBC (Bld) [Mass ratio]4-4Ivkavj6-9Ukaeys [facility]enburg CenterComment on above:Performed By: #### 1080361, 9111103, 9380225, 704484308, 05076249 #### [facility] [address] [place] [address]Yviwgne Ql (U)PositiveAbnormalNegativeElyria Memorial HospitalComment on above:Performed By: #### 4787787, 3186540, 5619983, 424369269, 50530497 #### [facility] [address] [place] [address]uO (U)6.0 [pH]Invalid Interpretation Code5.0-9.0[facility] HospitalComment on above:Performed By: #### 1641701, 5105194, 5348618, 347352782, 83787807 #### [facility] [address] [place] [address]Wkmdjpd (U) [Mass/Vol]NegativeNormalNegativeElyria Memorial HospitalComment on above:Performed By: #### 8534632, 8741747, 7671394, 822886306, 64961507 #### [facility] [address] [place] [address]Htxzrhdx gravity (U) [Rel density]1.025Invalid Interpretation Code1.005-1.030[facility] HospitalComment on above:Performed By: #### 4970178, 3952438, 1543946, 791453437, 47115893 #### [facility] [address] [place] [address]Ndfzmmjarbsc Qn (U)0.2 {Tj'U}/dLNormal0.0-1.0[facility] HospitalComment on above:Performed By: #### 7819704, 5443198, 7133338, 372332569, 80969009 #### [facility] [address] [place] [address]FJQ Auto Ql (U)TRACEAbnormalNegativeElyria Memorial Hospital Comment on above:Performed By: #### 7478090, 4340831, 8694470, 186357166, 52525116 #### [facility] [address] [place], [place] [address]SIR LM.HPF (Urine sed) [#/Area]7-3Ikvpbw7-3Blaffs [facility] CenterComment on above:Performed By: #### 1085543, 8571721, 3524116, 520797904, 10035857 #### [facility] [address] [place], [place] [address]VJXWVNQXFBPxieogl By: Evert Cordoba on 70-79-9905Spenokfp LM Ql (Urine sed)2+ /HPFInvalid Interpretation CodeTrace/HPFNOR[facility] UA Auto SS Bilirubin Ql (U)Negative (12/19/22 10:25 PM)NormalNegativeNOR[facility]TY [facility] UA Auto SSClarity (U)Clear (12/19/22 10:25 PM)NormalClearFGRADY [facility] UA Auto SSColor (U)Yellow (12/19/22 10:25 PM)NormalYellowNORMAN SPECIALTY HOSPITAL [facility] UA Auto SSEpithelial cells.squamous LM.HPF (Urine sed) [#/Area]0-2 /HPFNormal0-2/HPFFT UA Auto SSGlucose Test strip (U) [Mass/Vol]Negative (12/19/22 10:25 PM)NormalNegativeNOR[facility]TY [facility] UA Auto SSHemoglobin Ql (U)Negative (12/19/22 10:25 PM)NormalNegativeNOR[facility]TY [facility] UA Auto SSKetones (U) [Mass/Vol]Negative (12/19/22 10:25 PM)NormalNegativeNORMAN [facility]TY [facility] UA Auto SSLithium.plasma/Silex.RBC (Bld) [Mass ratio]0-3 /HPFNormal0-3/HPFFTMC UA Auto SSNitrite Ql (U)Positive *ABN* (12/19/22 10:25 PM)Invalid Interpretation CodeNegativeNORMAN SPECIALTY [facility]OS[facility]ITAL [facility] UA Auto SSpH (U)6.0 *NA* (12/19/22 10:25 PM)Invalid Interpretation Code5.0 - 9.0[facility] UA Auto SSProtein (U) [Mass/Vol]Negative (12/19/22 10:25 PM)NormalNegativeNORMAN SPECIALTY [facility] UA Auto SSSpecific gravity (U) [Rel density]1.025 *NA* (12/19/22 10:25 PM)Invalid Interpretation Code1.005 - 1.030[facility] UA Auto SSUA Spec DescCatheter 1 (12/19/22 10:25 PM)NormalNORMAN SPECIALTY HOSPITAL [facility] UA Auto SSComment on above:Result Comment: Minicath specimenUrobilinogen Qn (U)0.5713427 {Tj'U}/dLNormal0.0 - 1.0 EU/dLNORMAN SPECIALTY HOSPITAL [facility] UA Auto SSWBC Auto Ql (U)Trace *ABN* (12/19/22 10:25 PM)Invalid Interpretation CodeNegativeNORMAN SPECIALTY [facility]OS[facility]ITAL [facility] UA Auto SSWBC LM.HPF (Urine sed) [#/Area]0-5 /HPFNormal0-5/HPFNORMAN SPECIALTY HOS[facility]ITAL [facility] UA Auto SSeGFRon 12-19-2022 GFR/1.73 sq M.predicted among non-blacks MDRD (S/P/Bld) [Vol rate/Area]40 mL/min/1.73 m2Low>=59Fisher Brandenburg CenterComment on above:Order Comment: Order added by Discern Expert.Result Comment: Chronic kidney disease could be indicated at eGFR's of less than 60 mL/min/1.73m2. Kidney failure is indicated at less than 15 mL/min/1.73m2.Performed By: #### 9496508, 5629418, 6460372, 621796574, 41317693 #### [facility] [address] [place] [address]XP Spine Lumbar w/o Contraston 09-17-3123JM Spine Lumbar w/o ContrastExam Date/Time: 12/17/2022 10:41 EDT Reason for Exam: [...] Zaheer Arriaga M.D. Transcribed by: TOLU Technologist: [facility]rick HospitalConsent for Treatmenton 04-59-3056Fdnjnyq for Treatment [id number]#1.00CD:127[facility] HospitalDischarge Instructionson 95-00-2693Yuemhfatg Instructions [id number]:127[facility] Clinical Summaryon 28-49-2484IT Clinical Summary [address] [address] ED Clinical Summary Person Information Name: MARLEN STALEY/Savita Age: 72 Years : 1950 Sex: Female Language: Singaporean PCP: Rickey Askew MD Marital Status: Phone: [phone] MRN: Visit Id: Visit Reason: Weakness or [...] 12/17/2022 14:42:45 12/17/2022 14:42:45 12/17/2022 14:42:45 ADDR[address]: [address] [place] [address] [address] [facility] [place] [id number] PHYS DOC NOTES: MEDICAL INFORMATION: Prescriptions Given: New Medications [facility], [address] [place], [place] [id number], [phone] oxycodone (oxyCODONE 5 mg Tab) 1 Tablets [...] up: With: Address: When: JOSÉ ANTONIO VARGAS [address] [place] [address] Business (1) In 3 days 12/20/2022 With: Address: When: Gavino Lugo [address] [place] [address] Business (1) In 3 days 12/20/2022 With: Address: When: Rickey Askew [address] [place] [address] Business (1) In 3 days 12/20/2022 DIAGNOSIS: Fall; Lumbar compression fractureNormalFisher Boonton Medical CenterED Note-Physicianon 77-68-3737JA Note-PhysicianBasic Information Time Seen: Gui Scruggs PA-C 12/17/2022 [...] pain. The patient states she had a fallcouple of days ago. She states she was walking with her walker when she tripped and fell backwards.She presents complaining of pain along the lumbar region. She denies striking any loss of conscious. Denies any head neck back chest or abdominal pain. Denies any weakness or paresthesias. Denies anyrecent illnesses. No difficulty with bladder or bowel [...] but does appear to have acute lumbar compressionfractures. Case is discussed with trauma who reviewed [...] day(s), # 15 tab(s), Refills(s) 0, Pharmacy: [facility], 168, cm, 12/17/22 10:29:00 EDT, Height/Length [...] SAM In 3 days 12/20/[address]T [address] [address]- [facility] ([facility] Additional Instructions: Gavino Lugo In 3 days 12/20/2022 EDT [address] [place] [address]- Business (1) Additional Instructions: Rickey Askew In 3 days 12/20/2022 EDT [address] [place] [address]- Business(1) Additional Instructions: Patient Education Lumbar Spine Fracture Attestation Patient seen and evaluated by the physician real estate legal assistant. Attending physician was present in the emergency department and supervised care. This visit was performed by both the physician and an APC. I performed all aspects of the MDM as documented. This report was transcribed using voice recognition software. Every effort was made to ensure accuracy, however, inadvertently computerized printing plate maker mistakes may be present. Appropriate healthcare PPE [...] breast Multiple closed fra (more content not included)...[facility]. [facility] HospitalComment on above:Result Comment: Electronically Signed By: Gui Scruggs PA-C\.br\Date and Time Signed: 12/17/2312:40 EDT\.br\Electronically Co-Signed By: Jeffery Murphy DO\.johnnie\Date and Time Co-Signed: 12/17/22 18:34 EDTED Patient Education Noteon 56-34-2684QJ Patient Education NoteOrthopedics Lumbar Spine Fracture A lumbar spine fracture [...] spine unstable may require surgery.Surgery is done: ? To remove pressure from the nerves or spinal cord. ? To stabilize the broken pieces of bone. Follow these instructions at home: Medicines ? Take vtae-dbg-cbigkbm and prescription medicines only as told by your health care provider. ? Do not drive or use heavy machinery while taking prescription pain medicine. ? If you are taking prescription pain medicine, take actions to prevent or treat constipation. Yourhealth care provider may recommend that you: ? Drink enough fluid to keep your urine pale yellow. ? Eat foods that are high in fiber, such as fresh fruits and vegetables, whole grains, and beans. ? Limit foods that are high in fat and processed sugars, such as fried or sweet foods. ? Take an nrwe-yaf-hwlyyxv or prescription medicine for constipation. If you [...] could result in permanent injury, disability, or long-lasting(chronic) pain. Contact a health care provider if: [...] condition is renae (more content not included)... [facility] Patient Summaryon 44-73-1073HE Patient Summary [address] [address] Patient Discharge Instructions Person Information Name: MARLEN STALEY Age: 72 Years Arrival Date: 12/17/2022 10:19:35 Discharge Diagnosis: Fall; Lumbar compression fracture Primary Care Physician: Rickey Askew MD Provider Information Primary Provider: Jeffery Murphy DO Advanced Group Account Director:Gui Scruggs PA-C The exam and treatment you received in the Emergency Department were for an urgent problem and are not intended as complete care. It is important that you follow up with a doctor, nurse practitioner,or physician?s real estate legal assistant for ongoing care. If your symptoms become worse or you do not improve as expected and you are unable to reach your usual health care provider, you should return to the Emergency Department. We are available 24 hours a day. MARLEN STALEY has been given the following list of patient education materials, prescriptions andfollow-up instructions: Follow-up Instructions: With: Address: When: JOSÉ ANTONIO VARGAS [address] [place] [address] Business (1) In 3 days 12/20/2022 With: Address: When: Gavino Lugo [address] [place] [address] Business (1) In 3 days 12/20/2022 With: Address: When: Rickey Askew [address] [place] [address] Business (1) In 3 days 12/20/2022 In the event that this physician does not participate in your insurance network, please consult with your insurance company to find a nearby participating provider. Patient Education Materials: Lumbar Spine Fracture A MESSAGE TO ALL PATIENTS REGARDING OPIOIDS PRESCRIPTION OPIOIDS: WHAT YOU NEED TO KNOW Prescription opioids can be used to help relieve nszzbcqs-kk-cacfzt pain and are often prescribed following a [...] and have fewer risks and side effects. Optionsmay include: ? Pain relievers such as acetaminophen, [...] unused prescription opioids: Find your community drug take- back program or [facility] mail-back program, or flush them down the toilet, following guidance from the Food and Drug Administration (www.fda.gov/Drugs/ResourcesForYou). ? Visit (more content not included)...[facility] HospitalNursing Home Recordson 13-40-1855Flreiwj Home Records [id number]#1.00CD:127NoTogus VA Medical CenterXR Hip 2-3 Views Right + Pelvison 33-21-9780N[place] Hip 2-3 Views Right + PelvisExam Date/Time: 12/17/2022 10:48 EDT Reason for Exam: Pain, Traumatic Addendum IMPRESSION: Healing fractures of the left superior and inferior pubic rami. Ordering Provider: Gui Scruggs FINAL REPORT Dictated: 12/17/2022 12:37 pm Pipo Mayfield DO Signed (Electronic Signature): 12/17/2022 12:37 pm Signed by: Pipo Mayfield DO Transcribed by: TOLU Technologist: Report IMPRESSION: DISPLACED FRACTURES OF THE LEFT [...] 12/17/2022 12:37 EDT by Pipo Mayfield DO [facility] Lumbosacral 2 or 3 Viewson 48-62-9804TM Spine Lumbosacral 2 or 3 ViewsExam Date/Time: 12/17/2022 12:46 EDT Reason for Exam: Pain, Traumatic Report IMPRESSION: ACUTE/SUBACUTE COMPRESSION FRACTURES OF L1 AND L2. AGE-INDETERMINATE MODERATE ANTERIOR WEDGE COMPRESSION DEFORMITY OF T10. EXAMINATION: XR Spine Lumbosacral 2 or 3 Views TECHNIQUE: AP and lateral views HISTORY: Low back pain. COMPARISONS: CT lumbar spine 12/17/2022. Pelvis CT 03/05/2023 FINDINGS: Mild compression fracture of L1 and qamy-uz-drugaipj compression fracture of L2. No significant interval [...] Ka,r in mGy = na DAP = naNorSelect [facility] [place] Medicine Office/Clinic Noteon 66-37-2431Ftudvb Medicine Office/Clinic NoteHistory of Present Illness Discharge from [facility] 12/15 ADMIT from [facility] 11/02?16 multiple falls and increasing weakness, neighbor did not feel she was safe at home. currently admitted to [facility] with weakness, dementia. Was unable to ambulate in the ED, found with fractures of left superior and inferior pubic rami, probably subacute, bilateral sacralfractures also probably subacute and chronic appearing nondisplaced [...] at home and ability to care for selfbut she would have nothing to do with [...] encounter for fracture with routine healing) Completed rehab stay bowels ok, denies pain. Not [...] Daily, # 90 tab(s), Refills(s) 4, Pharmacy: [facility], 167, cm, 11/01/22 20:02:00 EDT, Height/Length Dosing, 90.3, kg, 11/01/22 20:02:00 EDT, Weight Dosing Home Health Oaeg-ra-Kswm Encounter Type: Medicare Reason for Glpr-ku-Cxhq (Diagnosis): DISCHARGE DIAGNOSIS Skilled Encounter Detail I certify that I conducted and documented that a ckui-xa-ujeo (F2F) encounter with the consumer occurred within the 90 days prior to the home health services start of care date, or within 30 days following the start of care date (inclusive of the start of care date), preceding the certification of medical necessity. Correction: Yes Physical Therapy: Yes Occupational Therapy: Yes Speech Therapy: _ Drug Abuse Worker: _ Gardening Supervisor: _ Need for Home Health Services I certify based on my findings that... a. Home health services are medically necessary for this patient, including either intermittent snf and/or therapy, AND b. The patient cannot [...] Vitamin D deficiency H (more content not included)...[facility] HospitalComment on above:Result Comment: Electronically Signed By: Sammy QUEZADA MD\.br\Date and Time Signed: 12/14/22 16:36 EDTONC - Otheron 39-99-6262MED - Other [id number]#1.00CD:127St[facility] HospitalON - Otheron 74-00-9391GEN - Other [id number]#1.00CD:127St[facility] HospitalON - Otheron 59-39-8681ETT - Other [id number]#1.00CD:[address] [place], [place] [address]XR Pelvis 1 or 2 Viewson 59-92-8725LK Pelvis 1 or 2 ViewsExam Date/Time: 11/20/2022 16:24 EDT Reason for Exam: [...] Ka,r in mGy = na DAP = naNorUniversity Hospitals Conneaut Medical CenterRAD - MISCon 30-29-6273FSG - MISC [id number]#1.00CD:[address] [place], [place] [address]Discharge Documentationon 62-56-1965Fnlpbyeld Documentation [id number]#1.00CD:[address] [place] [address] Medicine Office/Clinic Noteon 26-46-5159Iqilfd Medicine Office/Clinic NoteHistory of Present Illness MIKHAIL [facility] ADMIT from [facility] 11/02?16 multiple falls and increasing weakness, neighbor did not feel she was safe at home. currently admitted to [facility] with weakness, dementia. Was unableto ambulate in the ED, found with fractures of left superior and inferior pubic rami, probably subacute, bilateral sacral fractures also probably subacute and chronic appearing nondisplaced fracturesof the right pubic rami. Incidental notice of [...] furrowed and thickened suggesting hx of swelling. Normalcoloration. Assessment/Plan 1. Multiple closed fractures of pelvis [...] anastrozole, Vit B12 Pt brought in her [employer] supply 3. HTN (hypertension) (I10: Essential (primary) hypertension) lisinopril 10, simvastatin 40 Pt states doesn't take fish oils Pt has furosemide 40 qD on list, she hesitates and says takes it prn, but there is no filling hx onExternal Rx History whereas other meds are there regularly. Was added to list [address] Tabor visitbut again no fill hx found. Will dc [...] 11 refills ergocalciferol 50,000 intl units Cap, 59334 International_Unit= 1 cap(s), Oral, q7day Kisqali (200 [...] w/o Contrast; Christian Mckeon MD 11/02/2022 13:54 EDTNormal [facility] Memorial HospitalComment on above:Result Comment: Electronically Signed By: PILAR HANKS, Dedrick.johnnie\Date and Time Signed: 11/06/22 22:21 EDT Message from Medicareon 80-54-0591Khvpasr from Medicare [id number]#1.00CD:[address] [place], [place] [address]Transfer Documentson 23-39-3185Wbxssxtn Documents [id number]#1.00CD:[address] [place], [place] [address]Insurance Correspondence Officeon 98-75-7901Enwdejujh Correspondence [id number]#1.00CD:[address] [place], [place] [address]Inpatient Clinical Summaryon 12-05-8757Bdeftxuev Clinical Summary [address] [address] Clinical Summary Person Information: Name: MARLEN STALEY Age: 72 Years : 1950 Sex: Female PCP: Rickey Askew MD Marital Status: Phone: [phone] Race: White Ethnicity: Non- or Language: Singaporean Visit Id: Visit Reason: Weakness or fatigue; Trauma - minor; Multiple falls; WEAKNESS, CHEST PAIN Speciality: Acuity: Enc Type: Observation Med Service: Medical Arrival: 11/01/2022 19:53:41 Discharge: [facility] Address: [address] [place] [phone] Provider Notes: Addendum by Trevor HANKS, Wyatt [...] up: With: Address: When: Hollis DESIRAE [address] [facility], [address], [facility] [address] [place] [address] Business (1) Comments: Urinary retnetion w/dooley With: Address: When: Gavino Lugo [address] [place] [address] Business (1) Comments: Call for followup appointment in 4 weeks for repeat pelvis xray With: Address: When: Rickey Askew [address] [place] [address] Business (1) Type Location Start Finish State Secured Appointment Type Secured Location 11/22/2022 2:15 PM 11/22/2022 2:30 PM Confirmed Patient Education Information: [facility] Inpatient Patient Summary [facility] [address] [place], [place] [address] Patient Discharge Instructions PERSON INFORMATION [...] [facility], [address], [place] [phone] Business (1) Comments: Urinary retnetion w/spencer With: Address: When: Gavino Lugo [address] [place] [address] Business (1) Comments: Call for followup appointment in 4 weeks for repeat pelvis xray With: Address: When: Rickey Askew [address] [place] [address] Business (1) In the event that this physician does not participate in your insurance network, please consult with your insurance company to find a nearby participating provider. Type Location Start Finish State Secured Appointment Type Secured Location 11/22/2022 2:15 PM 11/22/2022 2:30 PM Confirmed Comment: REBEKA Christianson BARBARA, have received the attached patient education materials/instructions and have verbalized understanding: Patient Signature Date Clinican/Nurse Signature Date HERE ARE THE MEDICATION CHANGES THAT OCCURRED DURING YOUR HOSPITAL STAY New Medications [facility], [address] [phone], [phone] ergocalciferol (ergocalciferol 50,000 intl units Cap) 1 [...] Dose: Next Dose: ri (more content not included)...[facility] HospitalInpatient Patient Summary MARLEN STALEY :1950 Visit Date:11/01/2022 [...] make important decisions for 24 hours, Do notdrink alcoholic beverages for 24 hours Discharge Diet(s) Regular Call Your Doctor For Persistent or heavy bleeding, Temperature above 101.5 degrees, Redness, swelling, or pus at operative site, Severe pain at the operative site, Persistent vomiting Pharmacy Information [facility] Previously Scheduled Follow-Up Appointments 2022 2:15 PM EDT With: Senthil Caldera DO Where: [facility] New Follow Up Appointments after Discharge Follow Up with Gavino Lugo When: Comments: Call for followup appointment in 4 weeks for repeat pelvis xray Where: [address] [place], [place] [address] (1) Follow Up with Rickey Askew When: In 0 days Where: [address] [place], [place] [address] (1) Medications What How Much When Why Instructions Next Dose New ergocalciferol (ergocalciferol 50,000 intl units Cap) 1 Capsules By Mouth Every 7 days Pickup at [facility] Unchanged anastrozole (anastrozole 1 mg [...] Once a day (at bedtime) Pharmacy Information [facility]: [address] [place], [place] [id number] [phone] Test Results CBC BMP WBC: 6.6 E9/L (11/01/22 22:01:00) Glucose Lvl: 130 mg/dL (11/01/22 22:01:00) RBC: 3.7 E12/L Low (11/01/22 22:01:00) BUN: 26 mg/dL High (11/01/22 22:01:00) HGB: 12.1 gm/dL (11/01/22 22:01:00) Creatinine: 1.3 mg/dL (11/01/22 22:01:00) Hct: 36.5 % (11/01/22 22:01:00) BUN (more content not included)...[facility] Interdisciplinary Note - Case Manageron 92-25-3559Lskmyuyuighwcqyeo Note - Case ManagerCRM to room to discuss DC planning. Patient [...] contact info, white board updated. Anticipated DC onceSNF arranged Precert is back and can go to tcu/[facility] BED 56[facility] Comment on above:Result Comment: Electronically Signed By: Florence Ortega\.johnnie\Date and Time Signed: 11/04/22 13:07 EDTCHEMISTRYOrdered By: SYSTEM SYSTEM on [id number]-ssrhmqluzpvalh D3 [Mass/Vol]ng/mLLow30.0 - 100.0 ng/mLNORMAN SPECIALTY H[facility] RemisolInterdisciplinary Note - Case Manageron 87-36-3113Quylrxridwumumvso Note - Case ManagerCRM to room to discuss DC planning. Patient is awake, alert and oriented. Patient is here for weakness, fall, CP. She has a sacral rami fx that is non surgical. PT and OT rec SNF. Patient would like referral to TCU as her spouse is there. Patient is here for observation. PCP, DME and insurance verif ied. DC date once SNF arranged. CRM provided contact info, white board updated. Anticipated DC onceSNF arrangedSt. Vincent HospitalComment on above:Result Comment: Electronically Signed By: Florence Ortega\.br\Date and Time Signed: 11/03/22 10:38 EDTProgress Note-Physicianon 19-92-2017Saowtgya Note-PhysicianBasic Information This is a 72-year-old female with a medical history significant for metastatic breast cancer who comes in with pubic rami fracture and physical deconditioning. Assessment/Plan Physical deconditioning Pubic rami fracture Vitamin D deficiency -Spoke with orthopedic surgeon appreciate assistance likely nonoperative weightbearing as toleratedwe will wait for orthopedic surgeon to examine patient. -AP pelvis was ordered -Whiting -PT recommended SNF will send her to [...] q6hr, PRN ergocalciferol 50,000 intl units Cap, 87058 unit(s)= 1 cap(s), Oral, q7day hydrALAZINE 20 mg/mL Inj, 10 mg= 0.5 mL, IV Push, q6hr, PRN kisqali 200mg, Normal Patient Dose, Oral, q24hr lisinopril 10 mg Tab, 10 mg= 1 tab(s), Oral, Daily Lovenox 40 mg/0.4 mL SC Billie, 40 mg= 0.4 mL, SubCutaneous, Daily Whiting 5/325 Tab, 1 tab(s), Oral, q6hr, PRN [...] placed, she can follow up out pt w/urologyNormalElyria Memorial HospitalComment on above:Result Comment: Electronically Signed By: Trevor HANKS, Wyatt\.br\Date and Time Signed: 11/03/22 08:08 EDTRPR with Conf Rfxon 88-63-5043Biarfd Ab RPR Ql (S)Non-ReactiveInvalid Interpretation CodeNon ReactiveElyria Memorial HospitalComment on above: Result Comment: Performed at: [facility] [address] [id number] PhD [place] AvelarPerformed By: #### [id number], [id number], [id number], [id number], [id number] #### [facility] [address] [place], [place] [address]Vslgxes D 25 Hydroxyon [id number]-tudlsygdtoenum D3 [Mass/Vol]ng/mLLow30.0-100.0E[facility]ria Memorial HospitalComment on above:Result Comment: Vitamin D deficiency has been defined as a level of serum 25-OH vitamin D less than 20 ng/mL (1,2) by the [place] of Medicine and an Endocrine Society practice guideline. The Endocrine Society further defined vitamin D insufficiency as a level between 21 and 29 ng/mL (2). 1. IOM ([place] of Medicine). 2010. Dietary reference intakes for calcium and D. [place]: The National Academies Press. 2. Katlin MF, Taylor [place], Terrie-Riki DUKE, et al. Evaluation, treatment, and prevention of vitamin D deficiency: an Endocrine Society clinical practice guideline. JCEM. 2010; 96 (7):1911-30.Performed By: #### [id number] ####[facility] [address] [place], [place] [address]XZ Pelvis w/o Contraston 94-53-7578SZ Pelvis w/o ContrastExam Date/Time: 11/02/2022 13:54 EDT Reason for Exam: [...] Given? No Oral contrast amount in ml's: 0NormalFisher [facility] Clinical Summaryon 57-77-8721NA Clinical Summary [place] [address] ED Clinical Summary Person Information Name: MARLEN STALEY/Savita Age: 72 Years : 1950 Sex: Female Language: Singaporean PCP: Rickey Askew MD Marital Status: Phone: [phone] MRN: Visit Id: Visit Reason: Weakness or fatigue; Trauma - minor; Multiple falls; WEAKNESS, CHEST PAIN Speciality:Acuity: 2 Enc Type: Observation Med Service: Emergency Arrival: 11/01/2022 19:53:41 Discharge: LOS: 000 07:19 Checkin: 11/01/2022 19:53:41 Checkout: 11/02/2022 03:12:35 [facility]po [facility] EVENTS: Event Name Event Status Request [...] 11/02/2022 03:12:35 11/02/2022 03:12:35 11/02/2022 03:12:35 ADDRESS: [address] [place] [address] [address] [place] [phone] PHYS DOC NOTES: MEDICAL INFORMATION: Prescriptions Given: [...] deep vein thrombosis (DVT) prophylaxis; Multiple falls [facility] CenterED Note-Physicianon 88-81-5153OM Note-Physician Radiologist has read the x-ray of the sacrum and there is discrepancy. He is reading he has a left pubic rami fracture. The patient has been admitted to the hospital.The hospitalist notified.[facility] HospitalComment on above:Result Comment: Electronically Signed By: Alok Cai M.D..johnnie\Date and Time Signed: 11/02/2306:41 EDTED Note-PhysicianBasic Information Time Seen: Kelly Meredith DO 11/01/2022 20:01 Chief Complaint [facility] to ED via [facility] with c/o chest bruise from fall earlier today. c/o increasing weakness. denies thinners or hitting head with earlier fall. denies PMH. hx of DM. pt A&Ox4 upon ED arrival, applied to potline monitor. History of Present Illness Patient is a 72-year-old female with past medical history of hypertension, hyperlipidemia, diabetespresenting to the ED for evaluation of multiple falls and increasing weakness. Patient states this morning she was walking had put her close on the walker when she got tangled up and fell landing on her chest. Patient states she called EMS for lift assist and was evaluated and declined transport atthat time. Patient states this afternoon she was [...] and Complexity of Problems Differential Diagnosis: [] [facility] Data External documents reviewed: [] My [...] there is no underlying medical process. Patient refusesthese. Chest x-ray is obtained to evaluate for [...] furosemide 40 mg Ta (more content not included)...[facility] HospitalComment on above:Result Comment: Electronically Signed By: Kelly Meredith DO\.br\Date and Time Signed: 11/02/22 00:27 EDTED Patient Education Note on 82-14-1140FK Patient Education NoteNormAkron Children's Hospital CenterED Patient Summaryon 38-12-4511AR Patient Summary [address] [address] Patient Discharge Instructions Person Information Name: MARLEN STALEY Age: 72 Years Arrival Date: 11/01/2022 19:53:41 Discharge Diagnosis: 1:Generalized weakness; 2:HTN (hypertension); 3:Hypercholesteremia; 4:History of breast cancer; 5:On deep vein thrombosis (DVT) prophylaxis; Multiple falls Primary Care Physician: Rickey Askew MD Provider Information Primary Provider: Kelly Meredith DO Advanced Group Account Director:None The exam and treatment you received in the Emergency Department were for an urgent problem and are not intended as complete care. It is important that you follow up with a doctor, nurse practitioner,or physician?s real estate legal assistant for ongoing care. If your symptoms become worse or you do not improve as expected and you are unable to reach your usual health care provider, you should return to the Emergency Department. We are available 24 hours a day. MARLEN STALEY has been given the following list of patient education materials, prescriptions andfollow-up instructions: Follow-up Instructions: In the event that this physician does not participate in your insurance network, please consult with your insurance company to find a nearby participating provider. Patient Education Materials: A MESSAGE TO ALL PATIENTS REGARDING OPIOIDS PRESCRIPTION OPIOIDS: WHAT YOU NEED TO KNOW Prescription opioids can be used to help relieve caljpvwd-to-jjsokz pain and are often prescribed following a [...] and have fewer risks and side effects. Optionsmay include: ? Pain relievers such as acetaminophen, [...] unused prescription opioids: Find your community drug take- back program or [place] mail-back program, or flush them down the toilet, following guidance from the Food and Drug Administration (www.fda.gov/Drugs/ResourcesForYou). ? Visit www.cdc.gov/drugoverdose to learn about the risks of opioids abuse and overdose. ? If you believe you may be struggling with addiction, tell your health day care assistant and ask for guidance or call [facility]?S National Helpline at 8-211-120-QPXT. v Source: US Department of Health and Human Servi (more content not included)... [facility] Traumaon 78-78-4737WV Trauma [id number]#1.00CD:127NoTogus VA Medical CenterFolateOrdered By: SYSTEM SYSTEM on 67-25-4404Skozxz [Mass/Vol]11.4 ng/mL Normal>=6.7FTMC RemisolComment on above:Performed By: #### [id number], [id number], [id number], [id number], [id number] #### [facility] [address] [place], [place] [address]Hgaxlrwom Correspondence Officeon 91-58-8673Yltmjeqru Correspondence [id number]#1.00CD:127Normal [facility] CenterInterdisciplinary Note - Case Manageron 11-02-2022 Interdisciplinary Note - Case ManagerCRM to room to discuss DC planning. Patient is tearful in room because she cant see her spouse and he cant come to see her here. She would like to see him. Patient is here for weakness, Chest pain. Josh mccall has sacral Fx. Patient will be seen [...] spouse she can have a bed on [place] side. CRM willupdate patient and TCU Patient is okay with [place] side, she knows that she can visit him and have meals [facility] HospitalComment on above:Result Comment: Electronically Signed By: Florence Ortega\.br\Date and Time Signed: 11/02/22 14:23 EDT Interdisciplinary Note - OTon 17-75-8017Uasgsfyczfnrbdsfp Note - OTOT AM-PAC 6 Click Score: = SNF. Pt completed sit to stand transfer with Mod A x2 using FWW. Ptfearful about falling again and was emotional during time of evaluation. OT to follow daily, progressing as tolerates. Barriers include pain, weakness, and emotional state. SNF recommended for DC to maximize Pt's safety and independence with all self care tasks and functional transfers. OT evaluation completed by Michelle Guevara/OT under direct supervision from SIVAKUMAR Estrada, OTR/L.[facility] HospitalInterdisciplinary Note - Social Workeron 58-35-1008Hhblonxcelgukqetr Note - Social WorkerThis SW responded to a consult on regarding [...] has a phone call out to her twine winder to obtain a copy of thisdocumentation if she has it completed, so requested that a new AD is not completed at this time. Lynda abraham was adamant that SW not complete a [...] SNF anymore. SW will remain available as needed.[facility]. Vincent HospitalMonitor Recordon 23-80-6159Nxbzzvn Record [id number]#1.00CD:127NormFirelands Regional Medical Center South CampusProgress Note-Physicianon 84-61-2395Lcksipkc Note-PhysicianPatient: MARLEN STALEY Age: 72 years Sex: Female [...] breath. Sulfa drugs- Sob - shortness of breath.[facility] HospitalComment on above:Result Comment: Electronically Signed By: Gavino Lugo DO\.br\Date and Time Signed: 11/02/22 15:25 EDTProgress Note-PhysicianBasic Information This is a 72-year-old female with a medical history significant for metastatic breast cancer who comes in with pubic rami fracture and physical deconditioning. Assessment/Plan Physical deconditioning Pubic rami fracture -Spoke with orthopedic surgeon appreciate assistance likely nonoperative weightbearing as toleratedwe will wait for orthopedic surgeon to examine patient. -AP pelvis was ordered -Checking vitamin D -Whiting Metastatic breast cancer ? Continue with chemotherapeutics [...] no wound Lab Results WBC: 6.6 E9/L (11/01/22::00) RBC: 3.7 E12/L Low (11/01/22::00) HGB: 12.1 gm/dL (11/01/22::00) Hct: 36.5 % (11/01/22::00) MCV: 99.3 fL (11/01/22::00) MCH: 32.9 pg (11/01/22::00) MCHC: 33.1 gm/dL (11/01/22::00) RDW: 16.3 % High (11/01/22::00) Platelet: 229 E9/L (11/01/22::00) MPV: 7.3 fL (11/01/22::00) Neutro Auto: 65.9 % (11/01/22::00) Lymph Auto: 24.6 % (11/01/22::00) [place] Auto: 5 % (11/01/22::00) Eos Auto: 3.3 % (11/01/22::00) Basophil Auto: 1.2 % (11/01/22::00) Neutro Absolute: 4.4 E9/L (11/01/22::00) Lymph Absolute: 1.6 E9/L (11/01/22::00) [place] Absolute: 0.3 E9/L (11/01/22::00) Eos Absolute: 0.2 E9/L (11/01/22::00) Basophil Absolute: 0.1 E9/L (11/01/22::00) Glucose Lvl: 130 mg/dL (11/01/22::00) BUN: 26 mg/dL High (11/01/22::00) Creatinine: 1.3 mg/dL (11/01/22::00) eGFR: 43 mL/min/1.73 m2 Low (11/01/22::00) BUN/Creat Ratio: 20 (11/01/22::00) Sodium Lvl: 138 mmol/L (11/01/22 22:01:00) Potassium Lvl: 4.2 mmol/L (11/01/22 22:01:00) Chloride: 105 mmol/L (11/01/22 22:01:00) CO2: 22 mmol/L (11/01/22 22::00) AGAP: 15 mEq/L (11/01/22 22:01:00) Calcium Lvl: 9.1 mg/dL (11/01/22 22::00) Alk Phos: 110 Int._Unit/L High (11/01/22 22::00) ALT: 13 Int._Unit/L (11/01/22 22::00) AST: 20 Int._Unit/L (11/01/22::00) Total Protein: 6.9 gm/dL (11/01/22 22::00) Albumin Lvl: 3.5 gm/dL (11/01/22::00) Globulin: 3.4 gm/dL (11/01/22::00) A/G Ratio: 1 Low (11/01/22::00) Bili Total: 0.9 mg/dL (11/01/22 22:01:00) Bili Direct: 0.2 mg/dL (11/01/22 22::00) Bili Indirect: 0.7 mg/dL (11/01/22 22:01:00) TSH: 0.93 mcIU/mL (11/02/22 06:00:00) Troponin: 7.5 pg/mL Low (11/01/22 22:01:00) Vitamin B12 Lvl: 470 pg/mL (11/02/22 06:00:00) Folate Lvl: 11.4 ng/mL (11/02/22 06:00:00) UA Spec Desc: Clean Catch (11/01/22 23:20:00) UA Color: Yellow2 (11/01/22 23:20:00) UA Clarity: SL CLOUDY (11/01/22 23:20:00) UA Spec Grav: 1.025 (11/01/22:20:00) UA pH: [...] (hypertension) Hypercholesteremia Invasive du (more content not included)...NormalElyria [facility] Hospital Comment on above:Result Comment: Electronically Signed By: Trevor AHNKS, Wyatt\.br\Date and Time Signed: 11/02/22 12:22 EDTReference Laboratory Testing Ordered By: Generated DomainUser on [id number] Ab RPR Ql (S)Non-Reactive Invalid Interpretation CodeNon ReactiveNORMAN SPECIALTY [facility] SendOutsSSComment on above:Result Comment: Performed at: [facility] [address] [place], [place] [id number] PhD [place] Dalton With T4fr ReflexOrdered By: SYSTEM SYSTEM on 02-95-3885HNU Qn0.93 m[IU]/LNormal0.34-5.60[facility] RemisolComment on above: Performed By: #### [id number], 9673254, 8690004, [id number], [id number] #### [facility] [address] [place] [address] 05343HK With Cult Reflexon [id number] LM Ql (Urine sed)TRACE NormalTraceElyria Memorial HospitalComment on above:Order Comment: Urinary Catheter Insertion triggered Urinalysis With Culture Reflex order by discern. Performed By: #### 4375632, 8059963, 9911214, [id number], 09723839 #### [facility] [address] [place] [address] 71634Qkcgktdxd Ql (U)NegativeNormalNegativeElyria Memorial HospitalComment on above:Order Comment: Urinary Catheter Insertion triggered Urinalysis With Culture Reflex order by discern.Performed By: #### 0684871, 8517514, 5179346, 845271415, 51534389 #### [facility] [address] [place] [address] 48520Aslkoqh (U)CLEARNormalClearElyria Memorial HospitalComment on above:Order Comment: Urinary Catheter Insertion triggered Urinalysis With Culture Reflex order by discern.Performed By: #### 6189188, 3399544, 1286001, 363478166, 71920963 #### [facility] [address] [place] [address] 78742Iynni (U)YELLOWNormalYellowElyria Memorial HospitalComment on above:Order Comment: Urinary Catheter Insertion triggered Urinalysis With Culture Reflex order by discern.Performed By: #### [id number], 1169822, 7861822, 248971378, 01688284 #### [facility] [address] [place] [address] 04633Bgebgbetya cells.squamous LM.HPF (Urine sed) [#/Area]3-4Normal 0-2Fisher Brandenburg CenterComment on above:Order Comment: Urinary Catheter Insertion triggered Urinalysis With Culture Reflex order by discern.Performed By: #### 1670265, 2745970, 9801320, 257787098, 41590924 #### [facility] [address] [place] [address] 90599Torciia Test strip (U) [Mass/Vol]NegativeNormalNegativeElyria Memorial HospitalComment on above:Order Comment: Urinary Catheter Insertion triggered Urinalysis With Culture Reflex order by discern.Performed By: #### 3325995, 5420524, 3310498, 362459996, 69859561 #### [facility] [address] [place] [address] 66531Gwndevddma Ql (U)TRACEAbnormalNegKettering Memorial HospitalComment on above:Order Comment: Urinary Catheter Insertion triggered Urinalysis With Culture Reflex order by discern.Performed By: #### 9124999, 2079642, 2743791, 436333542, 10489565 #### [facility] [address] [place] [address] 52430Fskfxsh (U) [Mass/Vol]TRACEAbnormalNegKettering Memorial HospitalComment on above:Order Comment: Urinary Catheter Insertion triggered Urinalysis With Culture Reflex order by discern.Performed By: #### 7495579, 1647812, 6949589, 306549103, 71112752 #### [facility] [address] [place] [address] 55811Dajqypl.plasma/Silex.RBC (Bld) [Mass ratio]6-42Hgfdwo6-3 [facility] HospitalComment on above:Order Comment: Urinary Catheter Insertion triggered Urinalysis With Culture Reflex order by discern.Performed By: #### 6179192, 9709360, 0036209, 006441812, 83481943 #### [facility] [address] [place] [address] 10219Icjayxg Ql (U)NegativeNormalNegKettering Memorial Hospital Comment on above:Order Comment: Urinary Catheter Insertion triggered Urinalysis With Culture Reflex order by discern.Performed By: #### 0879420, 9738045, 2331399, 088710267, 93553456 #### [facility] [address] [place] [address] 50392oG (U)6.0 [pH]Invalid Interpretation Code5.0-9.0[facility] HospitalComment on above:Order Comment: Urinary Catheter Insertion triggered Urinalysis With Culture Reflex order by discern.Performed By: #### 4820415, 0179158, 4488022, 460640540, 51767432 #### [facility] [address] [place] [address] 18173Cjibjsq (U) [Mass/Vol]TRACEAbnormalNegativeElyria Memorial HospitalComment on above:Order Comment: Urinary Catheter Insertion triggered Urinalysis With Culture Reflex order by discern.Performed By: #### 9867679, 8933843, 7553711, 174804079, 45569966 #### [facility] [address] [place] [address] 00811Prjrqjcs gravity (U) [Rel density]1.025Invalid Interpretation Code1.005-1.030[facility] Memorial HospitalComment on above:Order Comment: Urinary Catheter Insertion triggered Urinalysis With Culture Reflex order by discern.Performed By: #### 5915665, 6048358, 9482467, 148045316, 07180204 #### [facility] [address] [place] [address] 25653Eaic of Urine collection methodCatheterNormalElyria Memorial HospitalComment on above:Order Comment: Urinary Catheter Insertion triggered Urinalysis With Culture Reflex order by discern.Performed By: #### 9293667, 5913076, 9894901, 142670124, 23663763 #### [facility] [address] [place] [address] 64954Lrptydnhtpjq Qn (U)1.0 {Tj'U}/dLNormal0.0-1.0[facility] HospitalComment on above:Order Comment: Urinary Catheter Insertion triggered Urinalysis With Culture Reflex order by discern.Performed By: #### 7978239, 3165693, 6539581, 081306708, 87376788 #### [facility] [address] [place] [address] 54973HJC Auto Ql (U)NegativeNormalNegativeElyria Memorial HospitalComment on above:Order Comment: Urinary Catheter Insertion triggered Urinalysis With Culture Reflex order by discern.Performed By: #### 5769749, 6468040, 6502607, 025936227, 55873213 #### [facility] [address], [place] [address]URY LM.HPF (Urine sed) [#/Area]1-2Zkyvie4-8Edwvqa Brandenburg CenterComment on above:Order Comment: Urinary Catheter Insertion triggered Urinalysis With Culture Reflex order by discern.Performed By: #### 9930952, 3472515, 9118023, 692955058, 12681693 #### [facility] [address], [place] [address]TWCWNYBRSYUwroaxa By: Dianne Villa on 65-75-8588Firlvfjl LM Ql (Urine sed)Trace /HPFNormalTrace/HPFFTMC UA Auto SSBilirubin Ql (U)Negative (11/02/22 5:30 PM)NormalNegativeNOR[facility] UA Auto SSClarity (U)Clear (11/02/22 5:30 PM)NormalClearFTMC UA Auto SSColor (U)Yellow (11/02/22 5:30 PM)NormalYellowFT UA Auto SSEpithelial cells.squamous LM.HPF (Urine sed) [#/Area]3-4 /HPFNormal0-2/HPFFTMC UA Auto SSGlucose Test strip (U) [Mass/Vol]Negative (11/02/22 5:30 PM)NormalNegativeFT UA Auto SSHemoglobin Ql (U)Trace *ABN* (11/02/22 5:30 PM)Invalid Interpretation CodeNegativeNOR[facility] UA Auto SSKetones (U) [Mass/Vol]Trace *ABN* (11/02/22 5:30 PM)Invalid Interpretation CodeNegativeNORMAN SPECIALTY [facility] UA Auto SS Silex.plasma/Silex.RBC (Bld) [Mass ratio]4-20 /HPFNormal0-3/HPFFTMC UA Auto SSNitrite Ql (U)Negative (11/02/22 5:30 PM)NormalNegativeNOR[facility]TY [facility] UA Auto SSpH (U)6.0 *NA* (11/02/22 5:30 PM)Invalid Interpretation Code5.0 - 9.0FT UA Auto SSProtein (U) [Mass/Vol]Trace *ABN* (11/02/22 5:30 PM)Invalid Interpretation CodeNegativeNORMAN SPECIALTY [facility] UA Auto SSSpecific gravity (U) [Rel density]1.025 *NA* (11/02/22 5:30 PM)Invalid Interpretation Code1.005 - 1.030[facility] UA Auto SSUA Spec DescCatheter (11/02/22 5:30 PM)NormalNORMAN SPECIALTY HOSPITAL – [facility] UA Auto SSUrobilinogen Qn (U)1.0511543 {Tj'U}/dLNormal0.0 - 1.0 EU/dLNORMAN SPECIALTY HOSPITAL – [facility] UA Auto SSWBC Auto Ql (U)Negative (11/02/22 5:30 PM)NormalNegativeNORMAN SPECIALTY [facility] UA Auto SSWBC LM.HPF (Urine sed) [#/Area]0-5 /HPFNormal0-5/HPFNORMAN SPECIALTY HOSPITAL – [facility] UA Auto SSVit Z50Odatwyk By: SYSTEM SYSTEM on 11-02-2022 Cobalamin (Vitamin B12) [Mass/Vol]470 pg/qKHugvrt78-5905PXVP RemisolComment on above:Performed By: #### 9512639, 8039818, 7710576, 238524968, 68595179 #### [facility] [address], [place] [address]PU Chest Single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 mL/min/1.73 m2Low>=59mL/min/1.73 m2[facility] Chem SGlobulin (S) [Mass/Vol]3.2 g/dLNormal1.4 - 4.0 gm/dLFT[facility] RemisolGlucose [Mass/Vol]147 mg/dL Rgttts41 - 199 mg/dLFT[facility] RemisolPotassium [Moles/Vol]4.0 mmol/LNormal3.5 - 5.3 mmol/LFT[facility] RemisolProtein [Mass/Vol]6.5 g/dLNormal6.0 - 7.8 gm/dLFT[facility] Remisol Sodium [Moles/Vol]136 mmol/ULkkxnn100 - 145 mmol/LFT[facility] RemisolUrea nitrogen [Mass/Vol]33 mg/dLHigh5 - 21 mg/dLFT[facility] RemisolUrea nitrogen/Creatinine [Mass ratio]25 mg/kqYfjm54 - 20[facility] RemisolHEMATOLOGYOrdered By: SYSTEM SYSTEM on 46-87-9444Ndkrdagew/100 WBC (Bld)2.7 %High0.0 - 2.0 %[facility] HemeAutoSS Basophils/Leukocytes Auto (Bld) [Pure # fraction]0.1 E9/LNormal0.0 - 0.2 E9/L [facility] HemeAutoSSEosinophils/100 WBC (Bld)3.5 %Normal0.0 - 8.0 %[facility] HemeAutoSS Eosinophils/Leukocytes Auto (Bld) [Pure # fraction]0.1 E9/LNormal0.0 - 0.5 E9/L [facility] HemeAutoSSLymphocytes/100 WBC (Bld)22.7 %Cfrvun82.0 - 50.0 %[facility] HemeAutoSS Lymphocytes/Leukocytes Auto (Bld) [Pure # fraction]0.8 E9/LLow1.0 - 4.0 E9/LFT[facility] HemeAutoSSMonocytes/100 WBC (Bld)3.2 %Low4.0 - 14.0 %[facility] HemeAutoSS Monocytes/Leukocytes Auto (Bld) [Pure # fraction]0.1 E9/LLow0.2 - 1.0 E9/LFT[facility] HemeAutoSSNeutrophils/100 WBC (Bld)67.9 %Semsgk23.0 - 75.0 %[facility] HemeAutoSS Neutrophils/Leukocytes Auto (Bld) [Pure # fraction]2.5 E9/LNormal2.0 - 7.5 E9/L [facility] HemeAutoSSHEMATOLOGYOrdered By: Suad Thorpe on 79-84-7386Nswcgpyifyp distribution width (RBC) [Ratio]15.9 %High10.9 - 14.2 %[facility] HemeAutoSSHematocrit (Bld) [Volume fraction]32.4 %Low34.0 - 46.0 %[facility] HemeAutoSSHemoglobin (Bld) [Mass/Vol]10.5 g/dLLow12.0 - 16.0 gm/dLFTMC HemeAutoSSMCH (RBC) [Entitic mass] 33.6 oqEstqjf48.0 - 34.0 pgFTMC HemeAutoSSMCHC (RBC) [Mass/Vol]32.5 g/dLNormal 31.4 - 36.0 gm/dLFTMC HemeAutoSSMCV (RBC) [Entitic vol]103.2 rUJblp40.0 - 100.0 fLFTMC HemeAutoSSPlatelet mean volume (Bld) [Entitic vol]7.4 fLNormal6.4 - 10.8 fLFT[facility] HemeAutoSSPlatelets (Bld) [#/Vol]142.0 E9/ZClm966.0 - 500.0 E9/L[facility] HemeAutoSSRBC (Bld) [#/Vol]3.1 E12/LLow4.3 - 5.9 E12/L[facility] HemeAutoSSWBC corrected for nucl RBC Auto (Bld) [#/Vol]3.7 E9/LLow4.0 - 11.0 E9/L[facility] HemeAutoSSCHEMISTRYOrdered By: SYSTEM SYSTEM on 70-96-7033Gmnongw [Mass/Vol]3.6 g/dLNormal3.3 - 5.0 gm/dLFT[facility] RemisolAlbumin/Globulin [Mass ratio]1.1 {ratio} Normal1.1 - 2.2[facility] RemisolALP [Catalytic activity/Vol]87 [iU]/xDyxusa91 - 98 Int._Unit/L[facility] RemisolALT No additional P-5'-P [Catalytic activity/Vol]18 [iU]/dNormal6 - 46 Int._Unit/L[facility] RemisolAnion gap [Moles/Vol]11 mmol/LNormal6 - 16 mEq/L[facility] RemisolAST [Catalytic activity/Vol]18 [iU]/dNormal5 - 43 Int._Unit/L[facility] RemisolBilirubin [Mass/Vol]1.0 mg/dLNormal0.0 - 1.1 mg/dLFT[facility] RemisolCalcium [Mass/Vol]8.7 mg/dLLow8.9 - 11.1 mg/dLFT[facility] RemisolChloride [Moles/Vol]108 mmol/ZHxajot236 - 111 mmol/L[facility] RemisolCO2 [Moles/Vol]23 mmol/L Htdgrf05 - 31 mmol/LFT[facility] RemisolCreatinine [Mass/Vol]1.3 mg/dLNormal0.5 - 1.3 mg/dLFT[facility] RemisolGFR/1.73 sq M.predicted among blacks MDRD (S/P/Bld) [Vol rate/Area]49 mL/min/1.73 m2Low>=59mL/min/1.73 m2[facility] Chem SGFR/1.73 sq M.predicted among non-blacks MDRD (S/P/Bld) [Vol rate/Area]40 mL/min/1.73 m2Low >=59mL/min/1.73 m2[facility] Chem SGlobulin (S) [Mass/Vol]3.4 g/dLNormal1.4 - 4.0 gm/dLFT[facility] RemisolGlucose [Mass/Vol]119 mg/nNXqfnbg56 - 199 mg/dLFT[facility] Remisol Potassium [Moles/Vol]4.1 mmol/LNormal3.5 - 5.3 mmol/L[facility] RemisolProtein [Mass/Vol]7.0 g/dLNormal6.0 - 7.8 gm/dLFT[facility] RemisolSodium [Moles/Vol]138 mmol/L Jxswwt603 - 145 mmol/LFT[facility] RemisolUrea nitrogen [Mass/Vol]24 mg/dLHigh5 - 21 mg/dLFT[facility] RemisolUrea nitrogen/Creatinine [Mass ratio]18 mg/seGdogsb31 - 20[facility] RemisolHEMATOLOGYOrdered By: [employer] SYSTEM on 24-08-3974Hzygwtzox/100 WBC (Bld) 2.7 %High0.0 - 2.0 %[facility] HemeAutoSSBasophils/Leukocytes Auto (Bld) [Pure # fraction]0.1 E9/LNormal0.0 - 0.2 E9/L[facility] HemeAutoSSEosinophils/100 WBC (Bld)1.9 %Normal0.0 - 8.0 %[facility] HemeAutoSSEosinophils/Leukocytes Auto (Bld) [Pure # fraction]0.1 E9/LNormal0.0 - 0.5 E9/L[facility] HemeAutoSSLymphocytes/100 WBC (Bld) 31.4 %Nlfhpx71.0 - 50.0 %[facility] HemeAutoSSLymphocytes/Leukocytes Auto (Bld) [Pure # fraction]1.3 E9/LNormal1.0 - 4.0 E9/L[facility] HemeAutoSSMonocytes/100 WBC (Bld)5.5 %Normal4.0 - 14.0 %[facility] HemeAutoSSMonocytes/Leukocytes Auto (Bld) [Pure # fraction]0.2 E9/LNormal0.2 - 1.0 E9/L[facility] HemeAutoSSNeutrophils/100 WBC (Bld) 58.5 %Dvbesc20.0 - 75.0 %[facility] HemeAutoSSNeutrophils/Leukocytes Auto (Bld) [Pure # fraction]2.5 E9/LNormal2.0 - 7.5 E9/L[facility] HemeAutoSSHEMATOLOGYOrdered By: Dianne Villa on 90-03-2727Wwtxjmtklci distribution width (RBC) [Ratio]17.1 % High10.9 - 14.2 %[facility] HemeAutoSSHematocrit (Bld) [Volume fraction]36.3 %Normal 34.0 - 46.0 %[facility] HemeAutoSSHemoglobin (Bld) [Mass/Vol]11.9 g/dLLow12.0 - 16.0 gm/dLFTMC HemeAutoSSMCH (RBC) [Entitic mass]33.4 ctTalkmf58.0 - 34.0 pgFTMC HemeAutoSSMCHC (RBC) [Mass/Vol]32.9 g/sHFcmcen15.4 - 36.0 gm/dLFTMC HemeAutoSS MCV (RBC) [Entitic vol]101.5 gHGqpi77.0 - 100.0 fLFT[facility] HemeAutoSSPlatelet mean volume (Bld) [Entitic vol]7.3 fLNormal6.4 - 10.8 fLFT[facility] HemeAutoSSPlatelets (Bld) [#/Vol]205.0 E9/SXxpbca901.0 - 500.0 E9/L[facility] HemeAutoSSRBC (Bld) [#/Vol] 3.6 E12/LLow4.3 - 5.9 E12/L[facility] HemeAutoSSWBC corrected for nucl RBC Auto (Bld) [#/Vol]4.2 E9/LNormal4.0 - 11.0 E9/L[facility] HemeAutoSSCHEMISTRYOrdered By: SYSTEM SYSTEM on 52-07-9893Ipruxbc [Mass/Vol]3.6 g/dLNormal3.3 - 5.0 gm/dLFT[facility] Remisol Albumin/Globulin [Mass ratio]1.2 {ratio}Normal1.1 - 2.2[facility] RemisolALP [Catalytic activity/Vol]79 [iU]/hCuhcho77 - 98 Int._Unit/L[facility] RemisolALT No additional P-5'-P [Catalytic activity/Vol]14 [iU]/dNormal6 - 46 Int._Unit/L[facility] RemisolAnion gap [Moles/Vol]12 mmol/LNormal6 - 16 mEq/L[facility] RemisolAST [Catalytic activity/Vol]16 [iU]/dNormal5 - 43 Int._Unit/L[facility] RemisolBilirubin [Mass/Vol]1.0 mg/dLNormal0.0 - 1.1 mg/dLFT[facility] RemisolCalcium [Mass/Vol]8.7 mg/dL Low8.9 - 11.1 mg/dLFT[facility] RemisolChloride [Moles/Vol]107 mmol/KCgntxu732 - 111 mmol/L[facility] RemisolCO2 [Moles/Vol]23 mmol/SChpvdt29 - 31 mmol/L[facility] Remisol Creatinine [Mass/Vol]1.2 mg/dLNormal0.5 - 1.3 mg/dLFT[facility] RemisolGFR/1.73 sq M.predicted among blacks MDRD (S/P/Bld) [Vol rate/Area]54 mL/min/1.73 m2Low >=59mL/min/1.73 m2FT Chem SGFR/1.73 sq M.predicted among non-blacks MDRD (S/P/Bld) [Vol rate/Area]44 mL/min/1.73 m2Low>=59mL/min/1.73 m2FT Chem S Globulin (S) [Mass/Vol]3.1 g/dLNormal1.4 - 4.0 gm/dLFT[facility] RemisolGlucose [Mass/Vol]121 mg/eHCcxtmh28 - 199 mg/dLFT[facility] RemisolPotassium [Moles/Vol]4.0 mmol/LNormal3.5 - 5.3 mmol/L[facility] RemisolProtein [Mass/Vol]6.7 g/dLNormal6.0 - 7.8 gm/dLFT[facility] RemisolSodium [Moles/Vol]138 mmol/UHaavsb876 - 145 mmol/LFT[facility] RemisolUrea nitrogen [Mass/Vol]26 mg/dLHigh5 - 21 mg/dLFT[facility] RemisolUrea nitrogen/Creatinine [Mass ratio]22 mg/kmJxfk94 - 20[facility] RemisolHEMATOLOGYOrdered By: SYSTEM SYSTEM on 75-50-1498Kadlbjxlj/100 WBC (Bld)2.5 %High0.0 - 2.0 %[facility] HemeAutoSSBasophils/Leukocytes Auto (Bld) [Pure # fraction]0.1 E9/LNormal0.0 - 0.2 E9/L[facility] HemeAutoSSEosinophils/100 WBC (Bld)1.7 %Normal0.0 - 8.0 %[facility] HemeAutoSSEosinophils/Leukocytes Auto (Bld) [Pure # fraction]0.1 E9/LNormal0.0 - 0.5 E9/L[facility] HemeAutoSSLymphocytes/100 WBC (Bld)49.6 %Lrivuj23.0 - 50.0 %[facility] HemeAutoSSLymphocytes/Leukocytes Auto (Bld) [Pure # fraction]2.3 E9/LNormal1.0 - 4.0 E9/L[facility] HemeAutoSSMonocytes/100 WBC (Bld)8.1 %Normal4.0 - 14.0 %[facility] HemeAutoSSMonocytes/Leukocytes Auto (Bld) [Pure # fraction]0.4 E9/LNormal0.2 - 1.0 E9/L[facility] HemeAutoSSNeutrophils/100 WBC (Bld)38.1 %Vffyzj54.0 - 75.0 %[facility] HemeAutoSSNeutrophils/Leukocytes Auto (Bld) [Pure # fraction]1.8 E9/LLow2.0 - 7.5 E9/LFT[facility] HemeAutoSSHEMATOLOGYOrdered By: Edwina Plasencia on 06-05-2022 Erythrocyte distribution width (RBC) [Ratio]17.2 %High10.9 - 14.2 %[facility] HemeAutoSSHematocrit (Bld) [Volume fraction]37.6 %Weevhf16.0 - 46.0 %[facility] HemeAutoSSHemoglobin (Bld) [Mass/Vol]12.7 g/sMJpfsxv69.0 - 16.0 gm/dLFTMC HemeAutoSSMCH (RBC) [Entitic mass]33.2 qiNnsrey89.0 - 34.0 pgFTMC HemeAutoSSMCHC (RBC) [Mass/Vol]33.8 g/rFGcpkqe33.4 - 36.0 gm/dLFTMC HemeAutoSSMCV (RBC) [Entitic vol]98.2 jBPejqer75.0 - 100.0 fLFT[facility] HemeAutoSSPlatelet mean volume (Bld) [Entitic vol]7.8 fLNormal6.4 - 10.8 fLFT[facility] HemeAutoSSPlatelets (Bld) [#/Vol]116.0 E9/TZvv987.0 - 500.0 E9/L[facility] HemeAutoSSRBC (Bld) [#/Vol]3.8 E12/L Low4.3 - 5.9 E12/L[facility] HemeAutoSSWBC corrected for nucl RBC Auto (Bld) [#/Vol] 4.6 E9/LNormal4.0 - 11.0 E9/L[facility] HemeAutoSSReference Laboratory TestingOrdered By: Generated DomainUser on 59-65-3077Vkxlxl Ag Qn17.2 unit/mLInvalid Interpretation Code0.0-38.6unit/mLFTMC SendOutsSSComment on above:Result Comment: Seaters Immunochemiluminometric Methodology (ICMA) Values obtained with different assay methods or kits cannot be used interchangeably. Results cannot be interpreted as absolute evidence of the presence or absence of malignant disease. Performed at: [facility] [address] [id number] PhD Denver VincentCHEMISTRYOrdered By: SYSTEM SYSTEM on 05-07-2022 Albumin [Mass/Vol]3.7 g/dLNormal3.3 - 5.0 gm/dLFTMC RemisolAlbumin/Globulin [Mass ratio]1.2 {ratio}Normal1.1 - 2.2[facility] RemisolALP [Catalytic activity/Vol]74 [iU]/wBykmxi61 - 98 Int._Unit/LFTMC RemisolALT No additional P-5'-P [Catalytic activity/Vol]19 [iU]/dNormal6 - 46 Int._Unit/LFTMC RemisolAnion gap [Moles/Vol] 15 mmol/LNormal6 - 16 mEq/LFTMC RemisolAST [Catalytic activity/Vol]19 [iU]/d Normal5 - 43 Int._Unit/LFTMC RemisolBilirubin [Mass/Vol]0.9 mg/dLNormal0.0 - 1.1 mg/dLFTMC RemisolCalcium [Mass/Vol]8.9 mg/dLNormal8.9 - 11.1 mg/dLFTMC Remisol Chloride [Moles/Vol]106 mmol/ZIsyhhb735 - 111 mmol/LFTMC RemisolCO2 [Moles/Vol] 20 mmol/LLow21 - 31 mmol/LFTMC RemisolCreatinine [Mass/Vol]1.3 mg/dLNormal0.5 - 1.3 mg/dLFTMC RemisolGFR/1.73 sq M.predicted among blacks MDRD (S/P/Bld) [Vol rate/Area]49 mL/min/1.73 m2Low>=59mL/min/1.73 m2[facility] Chem SGFR/1.73 sq M.predicted among non-blacks MDRD (S/P/Bld) [Vol rate/Area]40 mL/min/1.73 m2Low >=59mL/min/1.73 m2[facility] Chem SGlobulin (S) [Mass/Vol]3.2 g/dLNormal1.4 - 4.0 gm/dLFTMC RemisolGlucose [Mass/Vol]144 mg/qKBaaqtp08 - 199 mg/dLFTMC Remisol Potassium [Moles/Vol]4.2 mmol/LNormal3.5 - 5.3 mmol/LFTMC RemisolProtein [Mass/Vol]6.9 g/dLNormal6.0 - 7.8 gm/dLFTMC RemisolSodium [Moles/Vol]137 mmol/L Qodxtm364 - 145 mmol/LFTMC RemisolUrea nitrogen [Mass/Vol]26 mg/dLHigh5 - 21 mg/dLFTMC RemisolUrea nitrogen/Creatinine [Mass ratio]20 mg/oaLlcxzk24 - 20FT[facility] RemisolHEMATOLOGYOrdered By: SYSTEM SYSTEM on [id number]/100 WBC (Bld) 2.2 %High0.0 - 2.0 %[facility] HemeAutoSSBasophils/Leukocytes Auto (Bld) [Pure # fraction]0.1 E9/LNormal0.0 - 0.2 E9/LFTMC HemeAutoSSEosinophils/100 WBC (Bld)1.4 %Normal0.0 - 8.0 %[facility] HemeAutoSSEosinophils/Leukocytes Auto (Bld) [Pure # fraction]0.1 E9/LNormal0.0 - 0.5 E9/LFTMC HemeAutoSSLymphocytes/100 WBC (Bld) 49.1 %Tzlgca74.0 - 50.0 %[facility] HemeAutoSSLymphocytes/Leukocytes Auto (Bld) [Pure # fraction]1.9 E9/LNormal1.0 - 4.0 E9/LFT[facility] HemeAutoSSMonocytes/100 WBC (Bld)7.5 %Normal4.0 - 14.0 %[facility] HemeAutoSSMonocytes/Leukocytes Auto (Bld) [Pure # fraction]0.3 E9/LNormal0.2 - 1.0 E9/LFTMC HemeAutoSSNeutrophils/100 WBC (Bld) 39.8 %Wpshkd65.0 - 75.0 %[facility] HemeAutoSSNeutrophils/Leukocytes Auto (Bld) [Pure # fraction]1.5 E9/LLow2.0 - 7.5 E9/LFTMC HemeAutoSSHEMATOLOGYOrdered By: Rosangela Londono on [id number] distribution width (RBC) [Ratio]14.9 %High10.9 - 14.2 %[facility] HemeAutoSSHematocrit (Bld) [Volume fraction]41.2 %Lkvfmx65.0 - 46.0 % [facility] HemeAutoSSHemoglobin (Bld) [Mass/Vol]13.6 g/aOFbudip06.0 - 16.0 gm/dLFTMC HemeAutoSSMCH (RBC) [Entitic mass]31.4 xhXbvvfp40.0 - 34.0 pgFTMC HemeAutoSSMCHC (RBC) [Mass/Vol]33.1 g/eZBjztmf06.4 - 36.0 gm/dLFTMC HemeAutoSSMCV (RBC) [Entitic vol]94.7 iOYshmse46.0 - 100.0 fLFTMC HemeAutoSSPlatelet mean volume (Bld) [Entitic vol]7.5 fLNormal6.4 - 10.8 fLFTMC HemeAutoSSPlatelets (Bld) [#/Vol]134.0 E9/LCqy999.0 - 500.0 E9/LFT[facility] HemeAutoSSRBC (Bld) [#/Vol]4.4 E12/L Normal4.3 - 5.9 E12/LFT[facility] HemeAutoSSWBC corrected for nucl RBC Auto (Bld) [#/Vol]3.8 E9/LLow4.0 - 11.0 E9/LFT[facility] HemeAutoSSCHEMISTRYOrdered By: [employer] SYSTEM on [id number] [Mass/Vol]3.5 g/dLNormal3.3 - 5.0 gm/dLFT[facility] Remisol Albumin/Globulin [Mass ratio]1.2 {ratio}Normal1.1 - 2.2[facility] RemisolALP [Catalytic activity/Vol]66 [iU]/uHwkosk64 - 98 Int._Unit/LFT[facility] RemisolALT No additional P-5'-P [Catalytic activity/Vol]16 [iU]/dNormal6 - 46 Int._Unit/LFT[facility] RemisolAnion gap [Moles/Vol]12 mmol/LNormal6 - 16 mEq/LFT[facility] RemisolAST [Catalytic activity/Vol]19 [iU]/dNormal5 - 43 Int._Unit/LFT[facility] RemisolBilirubin [Mass/Vol]0.8 mg/dLNormal0.0 - 1.1 mg/dLFTMC RemisolCalcium [Mass/Vol]8.9 mg/dL Normal8.9 - 11.1 mg/dLFTMC RemisolChloride [Moles/Vol]106 mmol/CCglmko039 - 111 mmol/LFTMC RemisolCO2 [Moles/Vol]23 mmol/CLmeyme52 - 31 mmol/LFTMC Remisol Creatinine [Mass/Vol]1.3 mg/dLNormal0.5 - 1.3 mg/dLFTMC RemisolGFR/1.73 sq M.predicted among blacks MDRD (S/P/Bld) [Vol rate/Area]49 mL/min/1.73 m2Low >=59mL/min/1.73 m2FT Chem SGFR/1.73 sq M.predicted among non-blacks MDRD (S/P/Bld) [Vol rate/Area]40 mL/min/1.73 m2Low>=59mL/min/1.73 m2FT Chem S Globulin (S) [Mass/Vol]2.9 g/dLNormal1.4 - 4.0 gm/dLFTMC RemisolGlucose [Mass/Vol]129 mg/yAFzctfl69 - 199 mg/dLFTMC RemisolPotassium [Moles/Vol]4.2 mmol/LNormal3.5 - 5.3 mmol/LFT[facility] RemisolProtein [Mass/Vol]6.4 g/dLNormal6.0 - 7.8 gm/dLFTMC RemisolSodium [Moles/Vol]137 mmol/MKylbos833 - 145 mmol/LFTMC RemisolUrea nitrogen [Mass/Vol]23 mg/dLHigh5 - 21 mg/dLFT[facility] RemisolUrea nitrogen/Creatinine [Mass ratio]18 mg/emUpjrop15 - 20FT[facility] RemisolHEMATOLOGY Ordered By: SYSTEM SYSTEM on 84-66-2435Vuvsxkrku/100 WBC (Bld)0.3 %Normal0.0 - 2.0 %[facility] HemeAutoSSBasophils/Leukocytes Auto (Bld) [Pure # fraction]0.0 E9/L Normal0.0 - 0.2 E9/LFTMC HemeAutoSSEosinophils/100 WBC (Bld)7.7 %Normal0.0 - 8.0 %[facility] HemeAutoSSEosinophils/Leukocytes Auto (Bld) [Pure # fraction]0.4 E9/L Normal0.0 - 0.5 E9/LFTMC HemeAutoSSLymphocytes/100 WBC (Bld)40.7 %Cxpexu70.0 - 50.0 %[facility] HemeAutoSSLymphocytes/Leukocytes Auto (Bld) [Pure # fraction]1.9 E9/L Normal1.0 - 4.0 E9/LFT[facility] HemeAutoSSMonocytes/100 WBC (Bld)4.4 %Normal4.0 - 14.0 %[facility] HemeAutoSSMonocytes/Leukocytes Auto (Bld) [Pure # fraction]0.2 E9/LNormal 0.2 - 1.0 E9/LFTMC HemeAutoSSNeutrophils/100 WBC (Bld)46.9 %Tegesh05.0 - 75.0 % [facility] HemeAutoSSNeutrophils/Leukocytes Auto (Bld) [Pure # fraction]2.2 E9/LNormal 2.0 - 7.5 E9/LFTMC HemeAutoSSHEMATOLOGYOrdered By: Gavino Lyle on 86-84-8599Wzlorwufybo distribution width (RBC) [Ratio]14.1 %Xapxtl53.9 - 14.2 % [facility] HemeAutoSSHematocrit (Bld) [Volume fraction]41.6 %Uhjntw06.0 - 46.0 %[facility] HemeAutoSSHemoglobin (Bld) [Mass/Vol]13.8 g/oKExojce69.0 - 16.0 gm/dLFTMC HemeAutoSSMCH (RBC) [Entitic mass]30.9 hsUupxyb05.0 - 34.0 pgFTMC HemeAutoSSMCHC (RBC) [Mass/Vol]33.1 g/xADviaal74.4 - 36.0 gm/dLFTMC HemeAutoSSMCV (RBC) [Entitic vol]93.2 uRTtuoae50.0 - 100.0 fLFTMC HemeAutoSSPlatelet mean volume (Bld) [Entitic vol]7.5 fLNormal6.4 - 10.8 fLFTMC HemeAutoSSPlatelets (Bld) [#/Vol]173.0 E9/BNplwlm490.0 - 500.0 E9/LFT[facility] HemeAutoSSRBC (Bld) [#/Vol]4.5 E12/LNormal4.3 - 5.9 E12/LFT[facility] HemeAutoSSWBC corrected for nucl RBC Auto (Bld) [#/Vol]4.8 E9/LNormal4.0 - 11.0 E9/LFT[facility] HemeAutoSSCHEMISTRYOrdered By: SYSTEM SYSTEM on 33-89-6502Lbofbfg [Mass/Vol]3.7 g/dLNormal3.3 - 5.0 gm/dLFT[facility] Remisol Albumin/Globulin [Mass ratio]1.1 {ratio}Normal1.1 - 2.2[facility] RemisolALP [Catalytic activity/Vol]79 [iU]/zGbeeoj02 - 98 Int._Unit/LFT[facility] RemisolALT No additional P-5'-P [Catalytic activity/Vol]14 [iU]/dNormal6 - 46 Int._Unit/LFT[facility] RemisolAnion gap [Moles/Vol]13 mmol/LNormal6 - 16 mEq/LFT[facility] RemisolAST [Catalytic activity/Vol]17 [iU]/dNormal5 - 43 Int._Unit/LFT[facility] RemisolBilirubin [Mass/Vol]0.7 mg/dLNormal0.0 - 1.1 mg/dLFT[facility] RemisolCalcium [Mass/Vol]9.0 mg/dL Normal8.9 - 11.1 mg/dLFT RemisolChloride [Moles/Vol]106 mmol/QRggexx553 - 111 mmol/LFT[facility] RemisolCO2 [Moles/Vol]22 mmol/URsrsfe43 - 31 mmol/LFT[facility] Remisol Creatinine [Mass/Vol]1.6 mg/dLHigh0.5 - 1.3 mg/dLFTMC RemisolGFR/1.73 sq M.predicted among blacks MDRD (S/P/Bld) [Vol rate/Area]38 mL/min/1.73 m2Low >=59mL/min/1.73 m2FT Chem SGFR/1.73 sq M.predicted among non-blacks MDRD (S/P/Bld) [Vol rate/Area]32 mL/min/1.73 m2Low>=59mL/min/1.73 m2FT Chem S Globulin (S) [Mass/Vol]3.5 g/dLNormal1.4 - 4.0 gm/dLFTMC RemisolGlucose [Mass/Vol]222 mg/rWYriw05 - 199 mg/dLFT RemisolPotassium [Moles/Vol]4.5 mmol/L Normal3.5 - 5.3 mmol/LFT[facility] RemisolProtein [Mass/Vol]7.2 g/dLNormal6.0 - 7.8 gm/dLFT RemisolSodium [Moles/Vol]136 mmol/FMldmst630 - 145 mmol/LFT[facility] Remisol Urea nitrogen [Mass/Vol]30 mg/dLHigh5 - 21 mg/dLFTMC RemisolUrea nitrogen/Creatinine [Mass ratio]19 mg/rqVjktly37 - 20FT[facility] RemisolHEMATOLOGY Ordered By: SYSTEM SYSTEM on 38-43-5851Svpmmzwlm/100 WBC (Bld)3.1 %High0.0 - 2.0 %[facility] HemeAutoSSBasophils/Leukocytes Auto (Bld) [Pure # fraction]0.2 E9/LNormal 0.0 - 0.2 E9/LFTMC HemeAutoSSEosinophils/100 WBC (Bld)3.1 %Normal0.0 - 8.0 %[facility] HemeAutoSSEosinophils/Leukocytes Auto (Bld) [Pure # fraction]0.2 E9/LNormal0.0 - 0.5 E9/LFTMC HemeAutoSSLymphocytes/100 WBC (Bld)21.4 %Wglket37.0 - 50.0 %[facility] HemeAutoSSLymphocytes/Leukocytes Auto (Bld) [Pure # fraction]1.4 E9/LNormal1.0 - 4.0 E9/LFT[facility] HemeAutoSSMonocytes/100 WBC (Bld)5.5 %Normal4.0 - 14.0 %[facility] HemeAutoSSMonocytes/Leukocytes Auto (Bld) [Pure # fraction]0.4 E9/LNormal0.2 - 1.0 E9/LFT[facility] HemeAutoSSNeutrophils/100 WBC (Bld)66.9 %Larzji25.0 - 75.0 %[facility] HemeAutoSSNeutrophils/Leukocytes Auto (Bld) [Pure # fraction]4.4 E9/LNormal2.0 - 7.5 E9/LFT[facility] HemeAutoSSHEMATOLOGYOrdered By: Gavino Lyle on 12-26-2021 Erythrocyte distribution width (RBC) [Ratio]15.1 %High10.9 - 14.2 %[facility] HemeAutoSSHematocrit (Bld) [Volume fraction]39.8 %Dsptne34.0 - 46.0 %[facility] HemeAutoSSHemoglobin (Bld) [Mass/Vol]13.3 g/nUHnwnel77.0 - 16.0 gm/dLFTMC HemeAutoSSMCH (RBC) [Entitic mass]33.9 chAgrpzb10.0 - 34.0 pgFTMC HemeAutoSSMCHC (RBC) [Mass/Vol]33.4 g/wKWlrlgi07.4 - 36.0 gm/dLFTMC HemeAutoSSMCV (RBC) [Entitic vol]101.6 lUBahn81.0 - 100.0 fLFTMC HemeAutoSSPlatelet mean volume (Bld) [Entitic vol]7.8 fLNormal6.4 - 10.8 fLFTMC HemeAutoSSPlatelets (Bld) [#/Vol]267.0 E9/VEuvfrx377.0 - 500.0 E9/LFT[facility] HemeAutoSSRBC (Bld) [#/Vol]3.9 E12/LLow4.3 - 5.9 E12/LFC HemeAutoSSWBC corrected for nucl RBC Auto (Bld) [#/Vol]6.7 E9/LNormal4.0 - 11.0 E9/[facility] HemeAutoSSCHEMISTRYOrdered By: SYSTEM SYSTEM on 1949Vttjxqu [Mass/Vol]3.6 g/dLNormal3.3 - 5.0 gm/dLFTMC Remisol Albumin/Globulin [Mass ratio]1.1 {ratio}Normal1.1 - 2.2[facility] RemisolALP [Catalytic activity/Vol]103 [iU]/dHigh21 - 98 Int._Unit/LFC RemisolALT No additional P-5'-P [Catalytic activity/Vol]16 [iU]/dNormal6 - 46 Int._Unit/LFTMC RemisolAnion gap [Moles/Vol]13 mmol/LNormal6 - 16 mEq/LFT[facility] RemisolAST [Catalytic activity/Vol]16 [iU]/dNormal5 - 43 Int._Unit/LFT[facility] RemisolBilirubin [Mass/Vol]1.0 mg/dLNormal0.0 - 1.1 mg/dLFTMC RemisolCalcium [Mass/Vol]8.9 mg/dL Normal8.9 - 11.1 mg/dLFTMC RemisolChloride [Moles/Vol]106 mmol/UDgopzm524 - 111 mmol/LFT[facility] RemisolCO2 [Moles/Vol]21 mmol/NEixxhu60 - 31 mmol/LFT[facility] Remisol Creatinine [Mass/Vol]2.4 mg/dLHigh0.5 - 1.3 mg/dLFT RemisolGFR/1.73 sq M.predicted among blacks MDRD (S/P/Bld) [Vol rate/Area]24 mL/min/1.73 m2Low >=59mL/min/1.73 m2FT Chem SGFR/1.73 sq M.predicted among non-blacks MDRD (S/P/Bld) [Vol rate/Area]20 mL/min/1.73 m2Low>=59mL/min/1.73 m2FT Chem S Globulin (S) [Mass/Vol]3.2 g/dLNormal1.4 - 4.0 gm/dLFTMC RemisolGlucose [Mass/Vol]136 mg/gSUwlpkn65 - 199 mg/dLFTMC RemisolPotassium [Moles/Vol]4.4 mmol/LNormal3.5 - 5.3 mmol/LFT[facility] RemisolProtein [Mass/Vol]6.8 g/dLNormal6.0 - 7.8 gm/dLFT[facility] RemisolSodium [Moles/Vol]136 mmol/HIrayxc448 - 145 mmol/LFTMC RemisolUrea nitrogen [Mass/Vol]41 mg/dLHigh5 - 21 mg/dLFTMC RemisolUrea nitrogen/Creatinine [Mass ratio]17 mg/esZkoosw65 - 20FT[facility] RemisolHEMATOLOGY Ordered By: SYSTEM SYSTEM on 30-25-5101Nkmbudcka/100 WBC (Bld)3.6 %High0.0 - 2.0 %[facility] HemeAutoSSBasophils/Leukocytes Auto (Bld) [Pure # fraction]0.2 E9/LNormal 0.0 - 0.2 E9/LFTMC HemeAutoSSEosinophils/100 WBC (Bld)1.7 %Normal0.0 - 8.0 %[facility] HemeAutoSSEosinophils/Leukocytes Auto (Bld) [Pure # fraction]0.1 E9/LNormal0.0 - 0.5 E9/LFTMC HemeAutoSSLymphocytes/100 WBC (Bld)22.2 %Kvabyq94.0 - 50.0 %[facility] HemeAutoSSLymphocytes/Leukocytes Auto (Bld) [Pure # fraction]1.0 E9/LNormal1.0 - 4.0 E9/LFT[facility] HemeAutoSSMonocytes/100 WBC (Bld)5.2 %Normal4.0 - 14.0 %[facility] HemeAutoSSMonocytes/Leukocytes Auto (Bld) [Pure # fraction]0.2 E9/LNormal0.2 - 1.0 E9/LFT[facility] HemeAutoSSNeutrophils/100 WBC (Bld)67.3 %Xkbxrs54.0 - 75.0 %[facility] HemeAutoSSNeutrophils/Leukocytes Auto (Bld) [Pure # fraction]3.2 E9/LNormal2.0 - 7.5 E9/LFT[facility] HemeAutoSSHEMATOLOGYOrdered By: Helen Durán on 11-27-2021 Erythrocyte distribution width (RBC) [Ratio]19.9 %High10.9 - 14.2 %[facility] HemeAutoSSHematocrit (Bld) [Volume fraction]35.7 %Cntxtj35.0 - 46.0 %[facility] HemeAutoSSHemoglobin (Bld) [Mass/Vol]12.3 g/iRRjxqqe62.0 - 16.0 gm/dLFTMC HemeAutoSSMCH (RBC) [Entitic mass]34.7 xzRqfd35.0 - 34.0 pgFTMC HemeAutoSSMCHC (RBC) [Mass/Vol]34.5 g/sHZxmgsu09.4 - 36.0 gm/dLFTMC HemeAutoSSMCV (RBC) [Entitic vol]100.3 tUGqdv16.0 - 100.0 fLFTMC HemeAutoSSPlatelet mean volume (Bld) [Entitic vol]6.9 fLNormal6.4 - 10.8 fLFTMC HemeAutoSSPlatelets (Bld) [#/Vol]464.0 E9/PTyylqf846.0 - 500.0 E9/LFT[facility] HemeAutoSSRBC (Bld) [#/Vol]3.6 E12/LLow4.3 - 5.9 E12/LFT[facility] HemeAutoSSWBC corrected for nucl RBC Auto (Bld) [#/Vol]4.7 E9/LNormal4.0 - 11.0 E9/LFT[facility] HemeAutoSSCHEMISTRYOrdered By: SYSTEM SYSTEM on 26-14-3356Axrztjo [Mass/Vol]3.7 g/dLNormal3.3 - 5.0 gm/dLFT[facility] Remisol Albumin/Globulin [Mass ratio]1.2 {ratio}Normal1.1 - 2.2[facility] RemisolALP [Catalytic activity/Vol]79 [iU]/yIgeszb63 - 98 Int._Unit/LFT[facility] RemisolALT No additional P-5'-P [Catalytic activity/Vol]19 [iU]/dNormal6 - 46 Int._Unit/LFT[facility] RemisolAnion gap [Moles/Vol]12 mmol/LNormal6 - 16 mEq/L[facility] RemisolAST [Catalytic activity/Vol]20 [iU]/dNormal5 - 43 Int._Unit/LFT[facility] RemisolBilirubin [Mass/Vol]0.7 mg/dLNormal0.0 - 1.1 mg/dLFTMC RemisolCalcium [Mass/Vol]9.0 mg/dL Normal8.9 - 11.1 mg/dLFTMC RemisolChloride [Moles/Vol]108 mmol/KJtpyda402 - 111 mmol/LFT[facility] RemisolCO2 [Moles/Vol]23 mmol/FCckfow88 - 31 mmol/LFT[facility] Remisol Creatinine [Mass/Vol]1.5 mg/dLHigh0.5 - 1.3 mg/dLFTMC RemisolGFR/1.73 sq M.predicted among blacks MDRD (S/P/Bld) [Vol rate/Area]41 mL/min/1.73 m2Low >=59mL/min/1.73 m2FT Chem SGFR/1.73 sq M.predicted among non-blacks MDRD (S/P/Bld) [Vol rate/Area]34 mL/min/1.73 m2Low>=59mL/min/1.73 m2FT Chem S Globulin (S) [Mass/Vol]3.2 g/dLNormal1.4 - 4.0 gm/dLFTMC RemisolGlucose [Mass/Vol]122 mg/bIAkxzhr40 - 199 mg/dLFTMC RemisolPotassium [Moles/Vol]4.6 mmol/LNormal3.5 - 5.3 mmol/LFT[facility] RemisolProtein [Mass/Vol]6.9 g/dLNormal6.0 - 7.8 gm/dLFT[facility] RemisolSodium [Moles/Vol]138 mmol/NVthexq775 - 145 mmol/LFT[facility] RemisolUrea nitrogen [Mass/Vol]26 mg/dLHigh5 - 21 mg/dLFTMC RemisolUrea nitrogen/Creatinine [Mass ratio]17 mg/mbUlnfnn14 - 20FT[facility] RemisolHEMATOLOGY Ordered By: SYSTEM SYSTEM on 01-19-5797Vsoezfnza/100 WBC (Bld)3.5 %High0.0 - 2.0 %[facility] HemeAutoSSBasophils/Leukocytes Auto (Bld) [Pure # fraction]0.1 E9/LNormal 0.0 - 0.2 E9/LFT[facility] HemeAutoSSEosinophils/100 WBC (Bld)1.8 %Normal0.0 - 8.0 %[facility] HemeAutoSSEosinophils/Leukocytes Auto (Bld) [Pure # fraction]0.1 E9/LNormal0.0 - 0.5 E9/LFT[facility] HemeAutoSSLymphocytes/100 WBC (Bld)48.6 %Brjkmv92.0 - 50.0 %[facility] HemeAutoSSLymphocytes/Leukocytes Auto (Bld) [Pure # fraction]2.0 E9/LNormal1.0 - 4.0 E9/LFT[facility] HemeAutoSSMonocytes/100 WBC (Bld)3.9 %Low4.0 - 14.0 %[facility] HemeAutoSSMonocytes/Leukocytes Auto (Bld) [Pure # fraction]0.2 E9/LNormal0.2 - 1.0 E9/LFT[facility] HemeAutoSSNeutrophils/100 WBC (Bld)42.2 %Ldevba35.0 - 75.0 %[facility] HemeAutoSSNeutrophils/Leukocytes Auto (Bld) [Pure # fraction]1.7 E9/LLow2.0 - 7.5 E9/LFTMC HemeAutoSSHEMATOLOGYOrdered By: Maxim Ding on 11-01-2021 Erythrocyte distribution width (RBC) [Ratio]20.6 %High10.9 - 14.2 %[facility] HemeAutoSSHematocrit (Bld) [Volume fraction]37.6 %Pkhbqi45.0 - 46.0 %[facility] HemeAutoSSHemoglobin (Bld) [Mass/Vol]12.9 g/xOUkrgkc53.0 - 16.0 gm/dLFTMC HemeAutoSSMCH (RBC) [Entitic mass]32.7 mjDwbomf51.0 - 34.0 pgFTMC HemeAutoSSMCHC (RBC) [Mass/Vol]34.3 g/lQPngkxn07.4 - 36.0 gm/dLFTMC HemeAutoSSMCV (RBC) [Entitic vol]95.2 hHBzpazt70.0 - 100.0 fLFTMC HemeAutoSSPlatelet mean volume (Bld) [Entitic vol]7.3 fLNormal6.4 - 10.8 fLFTMC HemeAutoSSPlatelets (Bld) [#/Vol]387.0 E9/PLxwjsf347.0 - 500.0 E9/LFT[facility] HemeAutoSSRBC (Bld) [#/Vol]4.0 E12/LLow4.3 - 5.9 E12/LFT[facility] HemeAutoSSWBC corrected for nucl RBC Auto (Bld) [#/Vol]4.0 E9/LNormal4.0 - 11.0 E9/LFT[facility] HemeAutoSSCHEMISTRYOrdered By: SYSTEM SYSTEM on 51-68-9209Aprqbav [Mass/Vol]3.9 g/dLNormal3.3 - 5.0 gm/dLFTMC Remisol Albumin/Globulin [Mass ratio]1.1 {ratio}Normal1.1 - 2.2[facility] RemisolALP [Catalytic activity/Vol]135 [iU]/dHigh21 - 98 Int._Unit/LFT[facility] RemisolALT No additional P-5'-P [Catalytic activity/Vol]37 [iU]/dNormal6 - 46 Int._Unit/LFT[facility] RemisolAnion gap [Moles/Vol]16 mmol/LNormal6 - 16 mEq/LFT[facility] RemisolAST [Catalytic activity/Vol]25 [iU]/dNormal5 - 43 Int._Unit/LFT[facility] RemisolBilirubin [Mass/Vol]1.2 mg/dLHigh0.0 - 1.1 mg/dLFTMC RemisolCalcium [Mass/Vol]9.1 mg/dL Normal8.9 - 11.1 mg/dLFTMC RemisolChloride [Moles/Vol]105 mmol/MYpcege320 - 111 mmol/LFT[facility] RemisolCO2 [Moles/Vol]21 mmol/CHqxxhv98 - 31 mmol/LFT[facility] Remisol Creatinine [Mass/Vol]1.4 mg/dLHigh0.5 - 1.3 mg/dLFTMC RemisolGFR/1.73 sq M.predicted among blacks MDRD (S/P/Bld) [Vol rate/Area]45 mL/min/1.73 m2Low >=59mL/min/1.73 m2FT Chem SGFR/1.73 sq M.predicted among non-blacks MDRD (S/P/Bld) [Vol rate/Area]37 mL/min/1.73 m2Low>=59mL/min/1.73 m2FT Chem S Globulin (S) [Mass/Vol]3.5 g/dLNormal1.4 - 4.0 gm/dLFTMC RemisolGlucose [Mass/Vol]166 mg/oMOlwmuh38 - 199 mg/dLFTMC RemisolPotassium [Moles/Vol]4.8 mmol/LNormal3.5 - 5.3 mmol/LFT[facility] RemisolProtein [Mass/Vol]7.4 g/dLNormal6.0 - 7.8 gm/dLFTMC RemisolSodium [Moles/Vol]137 mmol/OAfzqmz451 - 145 mmol/LFT[facility] RemisolUrea nitrogen [Mass/Vol]24 mg/dLHigh5 - 21 mg/dLFTMC RemisolUrea nitrogen/Creatinine [Mass ratio]17 mg/yqYjpkwg15 - 20FT[facility] RemisolHEMATOLOGY Ordered By: SYSTEM SYSTEM on 73-56-9485Bujyzdyel/100 WBC (Bld)2.8 %High0.0 - 2.0 %[facility] HemeAutoSSBasophils/Leukocytes Auto (Bld) [Pure # fraction]0.1 E9/LNormal 0.0 - 0.2 E9/LFTMC HemeAutoSSEosinophils/100 WBC (Bld)3.6 %Normal0.0 - 8.0 %[facility] HemeAutoSSEosinophils/Leukocytes Auto (Bld) [Pure # fraction]0.1 E9/LNormal0.0 - 0.5 E9/LFTMC HemeAutoSSLymphocytes/100 WBC (Bld)32.7 %Ryuzey61.0 - 50.0 %[facility] HemeAutoSSLymphocytes/Leukocytes Auto (Bld) [Pure # fraction]1.3 E9/LNormal1.0 - 4.0 E9/LFT[facility] HemeAutoSSMonocytes/100 WBC (Bld)4.9 %Normal4.0 - 14.0 %[facility] HemeAutoSSMonocytes/Leukocytes Auto (Bld) [Pure # fraction]0.2 E9/LNormal0.2 - 1.0 E9/LFT[facility] HemeAutoSSNeutrophils/100 WBC (Bld)56.0 %Dtqlea66.0 - 75.0 %[facility] HemeAutoSSNeutrophils/Leukocytes Auto (Bld) [Pure # fraction]2.2 E9/LNormal2.0 - 7.5 E9/LFT[facility] HemeAutoSSHEMATOLOGYOrdered By: Lisette Tadeo on 10-02-2021 Erythrocyte distribution width (RBC) [Ratio]19.0 %High10.9 - 14.2 %[facility] HemeAutoSSHematocrit (Bld) [Volume fraction]38.9 %Nouvhu86.0 - 46.0 %[facility] HemeAutoSSHemoglobin (Bld) [Mass/Vol]13.3 g/nNJhisos07.0 - 16.0 gm/dLFTMC HemeAutoSSMCH (RBC) [Entitic mass]31.2 iyYqpenu01.0 - 34.0 pgFTMC HemeAutoSSMCHC (RBC) [Mass/Vol]34.1 g/dONytraa07.4 - 36.0 gm/dLFTMC HemeAutoSSMCV (RBC) [Entitic vol]91.6 eLQpkgcb96.0 - 100.0 fLFTMC HemeAutoSSPlatelet mean volume (Bld) [Entitic vol]7.8 fLNormal6.4 - 10.8 fLFTMC HemeAutoSSPlatelets (Bld) [#/Vol]317.0 E9/ZCnohuv070.0 - 500.0 E9/LFT[facility] HemeAutoSSComment on above:Result Comment: Platelet count verified using smear estimate. 10/02/2021 15:55:05 EDT RBC (Bld) [#/Vol]4.2 E12/LLow4.3 - 5.9 E12/LFTMC HemeAutoSSWBC corrected for nucl RBC Auto (Bld) [#/Vol]4.0 E9/LNormal4.0 - 11.0 E9/LFTMC HemeAutoSSClinic Note - Heme Onc Schedulingon 28-79-6643Dyjuak Note - Heme Onc SchedulingRetrieve Patient Instructions: Patient Instructions: Patient Instructions: RetrievePatient Instructions Instructions It was a pleasure meeting you today. Thank you for allowing me to take part in your care. Please contact our office if you have any questions or concerns going forward. End of Visit Documentation: Clinic Location/Phone Number: Clinic Location/Phone Number: [facility] End Of Visit MU Report Item: Visit Summary given or mailed to patientyes Mailed to patient Electronic Signatures: Isa Wong (SEC) (Signed 28-Aug-2021 16:01) Authored: Retrieve Patient Instructions, End of Visit Documentation Last Updated: 28-Aug-2021 16:01 by Isa Wong (SEC)[facility] On[facility]-New Visiton [id number] Note - Heme Onc-New VisitPatient Visit Information: Visit Type: New Visit Cancer History: Breast AJCC Edition: 8th (AJCC), Diagnosis Date: August 2021, Stage(no match), pM1 G2 History of Present Illness: ID Statement: null is a () day old null Interval History: BREAST CANCER DIAGNOSIS metastatic ER+/AK+/HER2- breast cancer (aO1Y4L0) CONSULTING ONCOLOGIST Dr David Caldera CURRENT THERAPY [...] Heat Intolerance, Cold Intolerance, Sweat, Polyuria, Thirst Hematologic/LymphNEGATIVE: Anemia, Bruising, Easy Bleeding, Night Sweats, Petechiae Allergic/ImmunologicNEGATIVE: Anaphylaxis, Itchy/ Teary Eyes, Itching, Sneezing, Swelling [...] right hip, corresponding to (more content not included)...[facility] Intakeon 84-91-1767Ekcxwy Note - Intake Patient Visit Information: Visit [...] (kg/m2)39 kg/M2 BSA (m2)2.08 M2 Nursing Verification Ayys27-Csp-9061 Nursing Verification Height in cm159 centimeter(s) SpO2 (%)98 % SpO2 Patient Onroom air Pain Screening: Patient States Painno (0) Guyline Operator for intimate exam offered to patient: Patient [...] Falls Band/Sticker Applied and Clinician Awareyes Spiritual/Procedural: Spiritual/cultural/restorationism practices important for us to knowno Adv [...] you are livingno Depression: Past 2 wks: Bluff down, depressed or hopelessno Past 2 wks: [place]uff little interest/pleasure doing thingsno Any Thoughts of [...] 13:21) Authored: Patient Visit Information, Vital Signs, Guyline Operator, Allergies, Outpatient Medication Profile, Notification, Travel History, Falls, Spiritual/Procedural, Adv Dir, Violence, Depression, Substance, Nutrition/Learning Lisette Valle (RN) (Signed 28-Aug-2021 15:47) Authored: Vital Signs, Notification Co-Signer: Patient Visit Information, Vital Signs, Guyline Operator, Allergies, Outpatient Medication Profile, Notification, Travel History, Falls, Spiritual/Procedural, Adv Dir, Violence, Depression, Substance, Nutrition/Learning Last Updated: 28-Aug-2021 15:47 by Lisette Valle (RN)[facility] - Out[facility]-Community Health Workeron 08-25-2021 Narrative Note - Outpatient-Community Health WorkerNarrative Note: [facility] Best way to contact patient#[phone] Veteranno Has patient been seen by a [...] Last Updated: 25-Aug-2021 11:50 by Leroy Gallegos (COOR)[facility] ManorCHEMISTRYOrdered By: SYSTEM SYSTEM on 65-52-1175Vzvbyva [Mass/Vol]3.5 g/dLNormal3.3 - 5.0 gm/dLFTMC RemisolAlbumin/Globulin [Mass ratio] 1.1 {ratio}Normal1.1 - 2.2FTMC RemisolALP [Catalytic activity/Vol]71 [iU]/d Zjartg10 - 98 Int._Unit/LFTMC RemisolALT No additional P-5'-P [Catalytic activity/Vol]16 [iU]/dNormal6 - 46 Int._Unit/LFTMC RemisolAnion gap [Moles/Vol] 11 mmol/LNormal6 - 16 mEq/LFTMC RemisolAST [Catalytic activity/Vol]17 [iU]/d Normal5 - 43 Int._Unit/LFTMC RemisolBilirubin [Mass/Vol]0.8 mg/dLNormal0.0 - 1.1 mg/dLFTMC RemisolCalcium [Mass/Vol]8.7 mg/dLLow8.9 - 11.1 mg/dLFTMC Remisol Carcinoembryonic Ag [Mass/Vol]10.2 ng/mLInvalid Interpretation CodeFTMC Remisol Chloride [Moles/Vol]110 mmol/GAqygcx963 - 111 mmol/LFTMC RemisolCO2 [Moles/Vol] 21 mmol/DBrunbm08 - 31 mmol/LFTMC RemisolCreatinine [Mass/Vol]1.0 mg/dLNormal0.5 - 1.3 mg/dLFTMC RemisolGFR/1.73 sq M.predicted among blacks MDRD (S/P/Bld) [Vol rate/Area]mL/min/1.73 j9Qpqxvx>=59mL/min/1.73 m2FTMC Chem SGFR/1.73 sq M.predicted among non-blacks MDRD (S/P/Bld) [Vol rate/Area]54 mL/min/1.73 m2Low >=59mL/min/1.73 m2FT Chem SGlobulin (S) [Mass/Vol]3.1 g/dLNormal1.4 - 4.0 gm/dLFTMC RemisolGlucose [Mass/Vol]132 mg/iIQlzpmv57 - 199 mg/dLFT[facility] Remisol Potassium [Moles/Vol]4.1 mmol/LNormal3.5 - 5.3 mmol/LFT[facility] RemisolProtein [Mass/Vol]6.6 g/dLNormal6.0 - 7.8 gm/dLFT[facility] RemisolSodium [Moles/Vol]138 mmol/L Qzocvb013 - 145 mmol/LFT[facility] RemisolUrea nitrogen [Mass/Vol]28 mg/dLHigh5 - 21 mg/dLFT[facility] RemisolUrea nitrogen/Creatinine [Mass ratio]28 mg/pfJopk03 - 20[facility] RemisolHEMATOLOGYOrdered By: SYSTEM SYSTEM on [id number]/100 WBC (Bld) 1.1 %Normal0.0 - 2.0 %[facility] HemeAutoSSBasophils/Leukocytes Auto (Bld) [Pure # fraction]0.1 E9/LNormal0.0 - 0.2 E9/LFTMC HemeAutoSSEosinophils/100 WBC (Bld)3.5 %Normal0.0 - 8.0 %[facility] HemeAutoSSEosinophils/Leukocytes Auto (Bld) [Pure # fraction]0.3 E9/LNormal0.0 - 0.5 E9/LFTMC HemeAutoSSLymphocytes/100 WBC (Bld) 35.9 %Uvayju60.0 - 50.0 %[facility] HemeAutoSSLymphocytes/Leukocytes Auto (Bld) [Pure # fraction]2.7 E9/LNormal1.0 - 4.0 E9/LFT[facility] HemeAutoSSMonocytes/100 WBC (Bld)5.3 %Normal4.0 - 14.0 %[facility] HemeAutoSSMonocytes/Leukocytes Auto (Bld) [Pure # fraction]0.4 E9/LNormal0.2 - 1.0 E9/LFT[facility] HemeAutoSSNeutrophils/100 WBC (Bld) 54.2 %Qkjaqc15.0 - 75.0 %[facility] HemeAutoSSNeutrophils/Leukocytes Auto (Bld) [Pure # fraction]4.1 E9/LNormal2.0 - 7.5 E9/LFT[facility] HemeAutoSSHEMATOLOGYOrdered By: Edwina Ryan on [id number] distribution width (RBC) [Ratio]14.5 %High10.9 - 14.2 %[facility] HemeAutoSSHematocrit (Bld) [Volume fraction]40.6 %Normal 34.0 - 46.0 %[facility] HemeAutoSSHemoglobin (Bld) [Mass/Vol]13.6 g/cHOsialg94.0 - 16.0 gm/dLFTMC HemeAutoSSMCH (RBC) [Entitic mass]29.8 htUfqkye46.0 - 34.0 pgFTMC HemeAutoSSMCHC (RBC) [Mass/Vol]33.5 g/jIAazqwa34.4 - 36.0 gm/dLFTMC HemeAutoSS MCV (RBC) [Entitic vol]88.9 wHMurvva77.0 - 100.0 fLFTMC HemeAutoSSPlatelet mean volume (Bld) [Entitic vol]7.9 fLNormal6.4 - 10.8 fLFTMC HemeAutoSSPlatelets (Bld) [#/Vol]185.0 E9/IDxetzw289.0 - 500.0 E9/LFT[facility] HemeAutoSSRBC (Bld) [#/Vol] 4.6 E12/LNormal4.3 - 5.9 E12/LFT[facility] HemeAutoSSWBC corrected for nucl RBC Auto (Bld) [#/Vol]7.6 E9/LNormal4.0 - 11.0 E9/LFT[facility] HemeAutoSSNurse Navigator - Breast-Second Opinionon [id number] Navigator - Breast-Second Opinion Preview: Note Preview [...] explained role within the multidisciplinary team at [facility]; reviewed upcoming appointment with Dr. Seay, provided [...] Last Updated: 16-Aug-2021 11:34 by Aliya Dobson ([place])[facility] ManorCHEMISTRYOrdered By: SYSTEM SYSTEM on [id number] [Mass/Vol] 3.6 g/dLNormal3.3 - 5.0 gm/dLFT[facility] RemisolAlbumin/Globulin [Mass ratio]1.1 {ratio}Normal1.1 - 2.2[facility] RemisolALP [Catalytic activity/Vol]74 [iU]/gGjkpil11 - 98 Int._Unit/LFT[facility] RemisolALT No additional P-5'-P [Catalytic activity/Vol]19 [iU]/dNormal6 - 46 Int._Unit/LFT[facility] RemisolAnion gap [Moles/Vol]12 mmol/LNormal6 - 16 mEq/L[facility] RemisolAST [Catalytic activity/Vol]19 [iU]/dNormal5 - 43 Int._Unit/L[facility] RemisolBilirubin [Mass/Vol]1.1 mg/dLNormal0.0 - 1.1 mg/dLFT[facility] RemisolCalcium [Mass/Vol]9.0 mg/dLNormal8.9 - 11.1 mg/dLFT[facility] RemisolChloride [Moles/Vol]107 mmol/DHqrmte568 - 111 mmol/LFT[facility] RemisolCO2 [Moles/Vol]21 mmol/L Gtkbxb31 - 31 mmol/LFT[facility] RemisolCreatinine [Mass/Vol]1.1 mg/dLNormal0.5 - 1.3 mg/dLFT[facility] RemisolGFR/1.73 sq M.predicted among blacks MDRD (S/P/Bld) [Vol rate/Area]59 mL/min/1.73 e3Iqrsky>=59mL/min/1.73 m2[facility] Chem SGFR/1.73 sq M.predicted among non-blacks MDRD (S/P/Bld) [Vol rate/Area]49 mL/min/1.73 m2Low >=59mL/min/1.73 m2[facility] Chem SGlobulin (S) [Mass/Vol]3.4 g/dLNormal1.4 - 4.0 gm/dLFT[facility] RemisolGlucose [Mass/Vol]151 mg/gWRadfmy20 - 199 mg/dLFT[facility] Remisol Potassium [Moles/Vol]4.5 mmol/LNormal3.5 - 5.3 mmol/L[facility] RemisolProtein [Mass/Vol]7.0 g/dLNormal6.0 - 7.8 gm/dLFT[facility] RemisolSodium [Moles/Vol]135 mmol/L Esulnt257 - 145 mmol/LFT[facility] RemisolUrea nitrogen [Mass/Vol]30 mg/dLHigh5 - 21 mg/dLFT[facility] RemisolUrea nitrogen/Creatinine [Mass ratio]27 mg/xmGlcd75 - 20[facility] RemisolHEMATOLOGYOrdered By: SYSTEM SYSTEM on 15-42-3569Vlrkavyzf/100 WBC (Bld) 1.4 %Normal0.0 - 2.0 %[facility] HemeAutoSSBasophils/Leukocytes Auto (Bld) [Pure # fraction]0.1 E9/LNormal0.0 - 0.2 E9/LFT[facility] HemeAutoSSEosinophils/100 WBC (Bld)2.1 %Normal0.0 - 8.0 %[facility] HemeAutoSSEosinophils/Leukocytes Auto (Bld) [Pure # fraction]0.1 E9/LNormal0.0 - 0.5 E9/LFT[facility] HemeAutoSSLymphocytes/100 WBC (Bld) 25.7 %Xjdogu87.0 - 50.0 %[facility] HemeAutoSSLymphocytes/Leukocytes Auto (Bld) [Pure # fraction]1.6 E9/LNormal1.0 - 4.0 E9/LFT[facility] HemeAutoSSMonocytes/100 WBC (Bld)5.6 %Normal4.0 - 14.0 %[facility] HemeAutoSSMonocytes/Leukocytes Auto (Bld) [Pure # fraction]0.3 E9/LNormal0.2 - 1.0 E9/LFT[facility] HemeAutoSSNeutrophils/100 WBC (Bld) 65.2 %Vfykaq14.0 - 75.0 %[facility] HemeAutoSSNeutrophils/Leukocytes Auto (Bld) [Pure # fraction]3.9 E9/LNormal2.0 - 7.5 E9/LFT[facility] HemeAutoSSHEMATOLOGYOrdered By: Katherine Last on 12-96-7144Kxuljuzqhti distribution width (RBC) [Ratio]14.3 %High 10.9 - 14.2 %[facility] HemeAutoSSHematocrit (Bld) [Volume fraction]42.8 %Vgyfvt01.0 - 46.0 %[facility] HemeAutoSSHemoglobin (Bld) [Mass/Vol]14.5 g/xVOigigc68.0 - 16.0 gm/dL [facility] HemeAutoSSMCH (RBC) [Entitic mass]29.8 vdQrgbdi34.0 - 34.0 pgFTMC HemeAutoSSMCHC (RBC) [Mass/Vol]33.9 g/tGFaydkf39.4 - 36.0 gm/dL[facility] HemeAutoSS MCV (RBC) [Entitic vol]87.7 pLRhqeyk03.0 - 100.0 fLFT[facility] HemeAutoSSPlatelet mean volume (Bld) [Entitic vol]7.5 fLNormal6.4 - 10.8 fLFT[facility] HemeAutoSSPlatelets (Bld) [#/Vol]196.0 E9/KXfmsmg483.0 - 500.0 E9/L[facility] HemeAutoSSRBC (Bld) [#/Vol] 4.9 E12/LNormal4.3 - 5.9 E12/L[facility] HemeAutoSSWBC corrected for nucl RBC Auto (Bld) [#/Vol]6.1 E9/LNormal4.0 - 11.0 E9/L[facility] HemeAutoSS Vital Signs Date TimeVital SignValuePerforming UheqdkeifAszuodkl98-01-8035 14:41-0400Body eexuwwtzaxm76.88 [degF][facility]05-21-2025 14:41-0400Diastolic blood flzlsexv31 mm[Hg][facility]05-21-2025 14:41-0400Heart rate67 /min[facility]-2025 14:41-0400Mean blood psnaznlt73 mm[Hg][facility]05-21-2025 14:41-0400Respiratory rate18 /min[facility]-21-2025 14:41-3302JbG2% (BldA) [Mass fraction]99 %[facility] 09-09-2024 14:41-0400Systolic blood mm[Hg][facility]01-22-2025 14:46-0500Body rosgrvjctsz89.42 [degF][facility]01-22-2025 14:46-0500Diastolic blood vumimvcv84 mm[Hg][facility]01-22-2025 14:46-0500Heart rate58 /min[facility] 05-13-2024 14:46-0500Mean blood oseuckkm99 mm[Hg][facility]01-22-2025 14:46-0500Respiratory rate16 /[facility]22[facility] 14:46-4528WlL2% (BldA) [Mass fraction]95 %[facility]01-22-2025 14:46-0500Systolic blood shajtryh69 mm[Hg][facility]09-19-2024 10:38-0400Body ftndijwthnq91.88 [degF][facility]09-19-2024 10:38-0400Diastolic blood blhglaag56 mm[Hg][facility]09-19-2024 10:38-0400Heart rate61 /min[facility]-19-2024 10:38-0400Mean blood masbnxih72 mm[Hg][facility]09-19-2024 10:38-0400 Respiratory rate16 /min[facility]-19-2024 10:38-3160MhP7% (BldA) [Mass fraction]96 %[facility]09-19-2024 10:38-0400Systolic blood unwhipvd228 mm[Hg][facility]05-23-2024 10:19-0400Body .88 [degF][facility]05-23-2024 10:19-0400 Diastolic blood eocjizsd83 mm[Hg][facility] 09-12-2023 10:19-0400Heart rate61 /min[facility]05-23-2024 10:19-0400Mean blood hynhwxaw43 mm[Hg][facility]05-23-2024 10:19-0400Respiratory rate18 /min[facility]05-23-2024 10:19-0906DaC5% (BldA) [Mass fraction]99 %[facility]05-23-2024 10:19-0400 Systolic blood nreihezu928 mm[Hg][facility] 08-30-2023 08:10-0400Body rlinhc881.02 cmMD Rugkeith Jennifer Work Phone: [facility]05-10-2024 08:10-0400 Body .64 kgMD Rugkeith Creighton Work Phone: [facility]02-21-2024 10:55-0500 Body eapkvhvnrtu49.06 [degF][facility] 06-12-2023 10:55-0500Diastolic blood vlaukxyr26 mm[Hg][facility]02-21-2024 10:55-0500Heart rate68 /min[facility]02-21-2024 10:55-0500Mean blood ewhftvur98 mm[Hg] [facility]02-21-2024 10:55-0500Respiratory rate16 /min[facility]02-21-2024 10:55-0500 SaO2% (BldA) [Mass fraction]97 %[facility] 06-12-2023 10:55-0500Systolic blood dovztcwp449 mm[Hg][facility]02-09-2024 08:36-0500Body saqxbh543.02 cmMD Rugkeith Jennifer Work Phone: [facility]02-09-2024 08:36-0500 Body unpixp23.18 kgMD Rugkeith Creighton Work Phone: [facility]01-10-2024 14:03-0500 Heart rate70 /min[facility]01-10-2024 14:03-3258VnH2% (BldA) [Mass fraction]98 %[facility]01-10-2024 14:02-0500Body ocpyglkgnnb47.24 [degF][facility]01-10-2024 14:02-0500Diastolic blood pntxcgee75 mm[Hg][facility]01-10-2024 14:02-0500Mean blood tceieutg32 mm[Hg][facility]01-10-2024 14:02-0500Systolic blood xgailffn700 mm[Hg][facility]10-11-2023 14:25-0400Heart rate76 /min[facility]10-11-2023 14:25-6204ShA2% (BldA) [Mass fraction]96 %[facility]10-11-2023 14:25-0400Diastolic blood mm[Hg][facility]10-11-2023 14:25-0400Mean blood bhtujwhu96 mm[Hg][facility]10-11-2023 14:25-0400Systolic blood vilkzdck276 mm[Hg][facility]10-11-2023 14:25-0400Body ajczutkugol11.7 [degF] [facility]10-11-2023 14:00-0400Blood Pressure Location[facility]10-11-2023 14:00-0400Respiratory rate16 /min[facility] 12-23-2022 10:15-0400Hourly RoundingMbanefo OJUKWU [address] [place], [place] [id number] 10:15-0400 Promise to ReturnMbanefo OJUKWU [address] [place], [place] [id number] 09:00-0400 Hourly RoundingMbanefo OJUKWU [address] [place], [place] [id number] 09:00-0400 Promise to ReturnMbanefo OJUKWU [address]09-03-2023 08:46-0400 Diastolic blood axjkgjay51 mm[Hg]Mbanefo OJUKWU [address]09-03-2023 08:46-0400 Systolic blood cvklrzho79 mm[Hg]Mbanefo OJUKWU [address] [place], [place] [address]603909-03-2023 08:40-0400gluc 111 mg/dLMbanefo OJUKWU [address] [place], [place] 0603909-03-2023 08:37-0400Heart rate56 /minMbanefo OJUKWU [address] [place], [place] [address]603909-03-2023 08:37-9555PaF9% (BldA) [Mass fraction]96 %Mbanefo OJUKWU [address]09-03-2023 08:37-0400 Respiratory rate18 /minMbanefo OJUKWU [address] [place], [place] [address]603909-03-2023 08:37-0400Body jtpbzkyptnh31.88 [degF]Mbanefo OJUKWU [address]09-03-2023 08:37-0400 Diastolic blood pvxwqybf41 mm[Hg]Mbanefo OJUKWU [address]09-03-2023 08:37-0400Mean blood mm[Hg]Mbanefo OJUKWU [address] [place], [place] [address]603909-03-2023 08:37-0400 Systolic blood fpaljwuy30 mm[Hg]Mbanefo OJUKWU [address] [place], [place] 0603909-03-2023 08:00-0400 Hourly RoundingMbanefo OJUKWU [address] [place], [place] 0603909-03-2023 08:00-0400 Promise to ReturnMbanefo OJUKWU [address] [place], [place] 0603909-02-2023 23:44-0400Heart rate58 /minMbanefo OJUKWU [address] [place], [place] 0603909-02-2023 23:44-6966PsK8% (BldA) [Mass fraction]97 %Mbanefo OJUKWU [address] [place], [place] 0603909-02-2023 23:44-0400Body wmgcbfdzach95.06 [degF]Mbanefo OJUKWU [address] [place], [place] 0603909-02-2023 23:44-0400 Diastolic blood uafqjjin93 mm[Hg]Mbanefo OJUKWU [address] [place], [place] 0603909-02-2023 23:44-0400Mean blood jiriozge64 mm[Hg]Mbanefo OJUKWU [address] [place], [place] 0603909-02-2023 23:44-0400 Systolic blood kxtrnuwd14 mm[Hg]Mbanefo OJUKWU [address] [place], [place] 0603909-02-2023 19:33-0400Heart rate62 /minMbanefo OJUKWU [address] [place], [place] 0603909-02-2023 19:33-8052DeL2% (BldA) [Mass fraction]97 %Mbanefo OJUKWU [address] [place], [place] 0603909-02-2023 19:33-0400Body raybjwumtuw80.24 [degF]Mbanefo OJUKWU [address] [place], [place] 0603909-02-2023 19:32-0400Mean blood uyyuneis91 mm[Hg]Mbanefo OJUKWU [address] [place], [place] 0603909-02-2023 16:03-0400gluc 129 mg/dLMbanefo OJUKWU [address] [place], [place] 0603909-02-2023 15:46-0400 Respiratory rate16 /minMbanefo OJUKWU [address] [place], [place] 0603909-02-2023 11:52-0400gluc 158 mg/dLMbanefo OJUKWU [address] [place], [place] 0603909-02-2023 11:13-0400 Respiratory rate13 /minMbanefo OJUKWU [address] [place], [place] 0603909-02-2023 06:56-0400Blood Pressure LocationMbanefo OJUKWU [address] [place], [place] 0603909-02-2023 06:56-0400Body ajsyowqrjcf36.42 [degF]Mbanefo OJUKWU [address] [place], [place] 0603909-02-2023 06:56-0400Mean blood mozlgcoq68 mm[Hg]Mbanefo OJUKWU [address] [place], [place] [address]603909-01-2023 23:00-0400Blood Pressure LocationMbanefo OJUKWU [address] [place], [place] 0603909-01-2023 23:00-0400Body zjrhnigdhre91.96 [degF]Mbanefo OJUKWU [address] [place], [place] 0603909-01-2023 23:00-0400Mean blood seyopxsu92 mm[Hg]Mbanefo OJUKWU [address] [place], [place] 0603909-01-2023 05:35-0400Mean blood juyuxypi33 mm[Hg]Mbanefo OMARCELLOWU [address] [place], [place] 0603908-31-2023 21:08-0400Body imskahijfeg96.7 [degF]Donfo OMARCELLOWU [address]08-31-2023 21:08-0400Heart rate65 /minDonfo OSERGIOU [address] [place], [place] 0603908-31-2023 15:06-0400Heart rate75 /minGodwinanefo OMARCELLOWU [address] [place], [place] 0603908-31-2023 00:45-0400 Diastolic blood eobgsten42 mm[Hg]David Tong [address] [place], [place] 0603908-31-2023 00:45-0400Heart rate76 /minTim Ran [address] [place], [place] 0603908-31-2023 00:45-0400Mean blood lqyrzvlz17 mm[Hg]Dvaid Tong [address] [place], [place] 0603908-31-2023 00:45-0400 Respiratory rate14 /minTim Ran [address] [place], [place] 0603908-31-2023 00:45-1379ByJ1% (BldA) [Mass fraction]100 %David Tong [address] [place], [place] 0603908-31-2023 00:45-0400 Systolic blood ijrcfyqa235 mm[Hg]David Tong [address] [place], [place] 2192108-31-2023 00:15-0400 Diastolic blood wfnwgxco86 mm[Hg]David Tong [address] [place], [place] 0603908-31-2023 00:15-0400Heart rate71 /minTim Ran [address] [place], [place] 2192108-31-2023 00:15-0400Mean blood uivihcjy13 mm[Hg]David Tong [address]08-31-2023 00:15-0400 Respiratory rate14 /minDavid Tong [address] [place], [place] 2192108-31-2023 00:15-9268DoN0% (BldA) [Mass fraction]92 %David Tong [address] [place], [place] 2192108-31-2023 00:15-0400 Systolic blood iiwjncuv717 mm[Hg]David Tong [address] [place], [place] 0603908-30-2023 23:45-0400 Diastolic blood pdiuamnc67 mm[Hg]David Tong [address] [place], [place] 0603908-30-2023 23:45-0400Heart rate80 /minTim Ran [address] [place], [place] 0603908-30-2023 23:45-0400Mean blood firifleo13 mm[Hg]David Tong [address] [place], [place] 0603908-30-2023 23:45-0400 Respiratory rate16 /minDavid Tong [address] [place], [place] 0603908-30-2023 23:45-7134YiG5% (BldA) [Mass fraction]97 %David Tong [address] [place], [place] 0603908-30-2023 23:45-0400 Systolic blood qinoexsb603 mm[Hg]David Tong [address] [place], [place] 0603908-30-2023 20:41-0400Body usjrsdhtfrz31.24 [degF]David Tong [address] [place], [place] 2192108-30-2023 20:41-0400Heart rate82 /minTim Ran [address] [place], [place] 2192108-30-2023 20:41-0400 Respiratory rate20 /minTim Ran [address] [place], [place] 2192108-28-2023 13:20-0400 Diastolic blood jxmecxhq94 mm[Hg]Jeffery Murphy [address] [place], [place] 2192108-28-2023 13:20-0400Heart rate60 /minJodiamante Katherine [address] [place], [place] 2192108-28-2023 13:20-0400 Hourly RoundingJodiamante Castelane [address]08-28-2023 13:20-0400Mean blood ubiyvepc42 mm[Hg]Jeffery Murphy [address]08-28-2023 13:20-0400 Promise to ReturnJohn Katherine [address]08-28-2023 13:20-1636OkB9% (BldA) [Mass fraction]97 %Jeffery Murphy [address] [place], [place] 2192108-28-2023 13:20-0400 Systolic blood iqchdrgk825 mm[Hg]Jeffery Murphy [address]08-28-2023 12:20-0400 Diastolic blood mm[Hg]Jeffery Murphy [address] [place], [place] 2192108-28-2023 12:20-0400Heart rate71 /minJeffery Castelane [address] [place], [place] 2192108-28-2023 12:20-0400 Hourly RoundingJodiamante Katherine [address] [place], [place] 2192108-28-2023 12:20-0400Mean blood dacbzcqh46 mm[Hg]Jeffery Murphy [address] [place], [place] 2192108-28-2023 12:20-0400 Promise to ReturnJohn Katherine [address] [place], [place] 2192108-28-2023 12:20-8810ZxS1% (BldA) [Mass fraction]96 %Jeffery Murphy [address] [place], [place] 2192108-28-2023 12:20-0400 Systolic blood fkidbudk929 mm[Hg]Jeffery Murphy [address] [place], [place] 2192108-28-2023 11:21-0400 Hourly RoundingJeffery Murphy [address] [place], [place] 2192108-28-2023 11:21-0400 Promise to ReturnJeffery Murphy [address] [place], [place] 2192108-28-2023 11:20-0400 Diastolic blood sjnicxlz33 mm[Hg]Jeffery Murphy [address]08-28-2023 11:20-0400Heart rate68 /minJeffery Murphy [address] [place], [place] 2192108-28-2023 11:20-0400Mean blood lfybbaeg48 mm[Hg]Jeffery Murphy [address] [place], [place] 2192108-28-2023 11:20-0400 Respiratory rate18 /minJeffery Murphy [address] [place], [place] 2192108-28-2023 11:20-6691WpG6% (BldA) [Mass fraction]96 %Jeffery Murphy [address] [place], [place] 2192108-28-2023 11:20-0400 Systolic blood iwjlsnaf853 mm[Hg]Jeffery Murphy [address] [place], [place] 2192108-28-2023 10:22-0400Body orjyjuqpjal55.88 [degF]Jeffery Murphy [address] [place], [place] 2192108-28-2023 10:22-0400Heart rate69 /minJeffery Castelane [address] [place], [place] 2192108-28-2023 10:22-0400 Respiratory rate18 /minJohn Katherine [address] [place], [place] 2192107-16-2023 14:00-0400 Hourly RoundingRonobir JESSICA [address] [place], [place] 2192107-16-2023 13:40-0400 Hourly RoundingRonobir JESSICA [address] [place], [place] 2192107-16-2023 13:40-0400 Promise to ReturnRonobir JESSICA [address] [place], [place] 2192107-16-2023 13:00-0400 Hourly RoundingRonobir JESSICA [address] [place], [place] 0603907-16-2023 12:26-0400 Promise to ReturnRonobir JESSICA [address] [place], [place] 0603907-16-2023 11:48-0400Heart rate78 /minRonobir JESSICA [address] [place], [place] 2192107-16-2023 11:48-6945IcP0% (BldA) [Mass fraction]95 %Ronobir JESSICA [address] [place], [place] 2192107-16-2023 11:48-0400 Diastolic blood bfxdrarl23 mm[Hg]Ronobir JESSICA [address] [place], [place] 2192107-16-2023 11:48-0400Mean blood xryuevfo12 mm[Hg]Ronobir JESSICA [address] [place], [place] 2192107-16-2023 11:48-0400 Systolic blood gslkkylm159 mm[Hg]Ronobir JESSICA [address] [place], [place] 2192107-16-2023 11:48-0400Body kckldytwcjn37.24 [degF]Ronobir JESSICA [address] [place], [place] 2192107-16-2023 11:17-0400 Promise to ReturnRonobir JESSICA [address] [place], [place] 0603907-16-2023 08:24-0400 Diastolic blood mm[Hg]Ronobir JESSICA [address] [place], [place] 0603907-16-2023 08:24-0400 Systolic blood fizycqvt790 mm[Hg]Ronobir JESSICA [address] [place], [place] 0603907-16-2023 07:32-0400Heart rate77 /minRonobir JESSICA [address] [place], [place] 0603907-16-2023 07:32-8848PzV8% (BldA) [Mass fraction]94 %Ronobir JESSICA [address] [place], [place] 0603907-16-2023 07:31-0400Body xhqmpeowkii83.7 [degF]Ronobir JESSICA [address] [place], [place] 0603907-16-2023 07:31-0400 Diastolic blood dtwuvwth92 mm[Hg]Ronobir JESSICA [address] [place], [place] 0603907-16-2023 07:31-0400Mean blood lhazzhra35 mm[Hg]Ronobir JESSICA [address] [place], [place] 0603907-16-2023 07:31-0400 Systolic blood pudgtvbv890 mm[Hg]Ronobir JESSICA [address] [place], [place] 0603907-15-2023 23:16-0400Heart rate79 /minRonobir JESSICA [address] [place], [place] 2192107-15-2023 23:16-9448VcI1% (BldA) [Mass fraction]97 %Ronobir JESSICA [address] [place], [place] 2192107-15-2023 23:16-0400Mean blood guawwcll172 mm[Hg]Ronobir JESSICA [address] [place], [place] 0603907-15-2023 23:15-0400Body iwlqfsmxqht64.7 [degF]Ronobir JESSICA [address]07-15-2023 20:00-0400Blood Pressure LocationRonobir JESSICA [address]07-15-2023 20:00-0400 Respiratory rate21 /minRonobir JESSICA [address] [place], [place] 2192107-15-2023 09:00-0400Mean blood imskvwyr77 mm[Hg]Ronobir JESSICA [address]07-15-2023 09:00-0400 Respiratory rate16 /minRonobir JESSICA [address]07-14-2023 21:15-0400Mean blood lilagarg12 mm[Hg]Ronobir JESSICA [address] [place], [place] 0603907-14-2023 11:51-0400 Respiratory rate18 /minRonobir JESSICA [address]07-14-2023 03:50-0400Heart rate68 /minRonobir JESSICA [address]07-14-2023 03:18-0400 Respiratory rate10 /minRonobir JESSICA [address] [place], [place] 2192107-14-2023 02:38-0400 Nursing Progress Note ReasonOther: pt complains of back pain. repositioned in bed. medicated for pain.Ronobir JESSICA [address] [place], [place] 2192107-14-2023 02:38-0400 Respiratory rate7 /minRonobir JESSICA [address]07-14-2023 02:37-0400Heart rate73 /minRonobir JESSICA [address] [place], [place] 2192107-13-2023 23:15-0400 Nursing Progress Note ReasonOther: trauma made medical at this time. mini cath done and urine sent to lab. pt repositioned in bedRonobir JESSICA [address] [place], [place] 9604707-13-2023 22:53-0400Body meujnahlhdj53.62 [degF]Ronobir JESSICA [facility]07-13-2023 22:53-0400Heart rate74 /minRonobir JESSICA [facility]07-13-2023 22:03-0400Heart rate69 /minRonobir JESSICA [address] [place], [place] 2192104-12-2023 13:00-0400Blood [facility] Location[facility]04-12-2023 13:00-0400Body zrccpnievbu15.6 [degF][facility]04-12-2023 13:00-0400Diastolic blood hjfoyhsu56 mm[Hg][facility]04-12-2023 13:00-0400Heart rate76 /min[facility]04-12-2023 13:00-0400Mean blood pressure 101 mm[Hg][facility]04-12-2023 13:00-0400 Respiratory rate16 /min[facility]04-12-2023 13:00-1748VqG0% (BldA) [Mass fraction]97 %[facility]04-12-2023 13:00-0400Systolic blood qakzlabf191 mm[Hg][facility]02-15-2023 12:59-0500Heart rate61 /min [facility]02-15-2023 12:59-4051TlD9% (BldA) [Mass fraction]98 %[facility]02-15-2023 12:59-0500Respiratory rate16 /min[facility] 06-06-2022 12:59-0500Body abngpucconk11.7 [degF][facility]02-15-2023 12:58-0500Diastolic blood nakdccet578 mm[Hg][facility]02-15-2023 12:58-0500Mean blood pressure 116 mm[Hg][facility]02-15-2023 12:58-0500 Systolic blood iyugpcep957 mm[Hg][facility] 03-28-2022 14:10-0500Heart rate66 /minSelect [facility]12-07-2022 14:10-4363KzU4% (BldA) [Mass fraction]96 %[facility]12-07-2022 14:09-0500Body sbisibjqnqq17.42 [degF] [facility]12-07-2022 14:09-0500Diastolic blood ziktsbfd70 mm[Hg][facility]12-07-2022 14:09-0500Mean blood mosfgfyw26 mm[Hg][facility]12-07-2022 14:09-0500Systolic blood ecmbdlod594 mm[Hg][facility]12-07-2022 14:09-0500Blood Pressure LocationSelect [facility]12-07-2022 14:09-0500Body temperature 98.42 [degF][facility]12-07-2022 14:09-0500 Mean blood reedaajr37 mm[Hg][facility] 03-28-2022 14:09-0500Respiratory rate18 /minSelect [facility]09-29-2022 14:13-0400[facility] Location[facility]09-29-2022 14:13-0400Body bqjpfwglpif43.06 [degF] [facility]09-29-2022 14:13-0400BP/Pulse Patient PositionSelect [facility]ty [facility]09-29-2022 14:13-0400Diastolic blood ftdecjav22 mm[Hg][facility]09-29-2022 14:13-0400Heart rate59 /minSelect [facility]09-29-2022 14:13-0400Mean blood niuzqpqm10 mm[Hg][facility]09-29-2022 14:13-0400Respiratory rate16 /minSelect [facility]09-29-2022 14:13-3402FxL0% (BldA) [Mass fraction]98 %[facility] 01-18-2022 14:13-0400Systolic blood khuzsuyh434 mm[Hg][facility]09-01-2022 13:34-0400Blood Pressure LocationNohemi Garcia [address] [place], [place] 2192109-01-2022 13:34-0400Body dxriymgobzr14.6 [degF]Nohemi Garcia [address] [place], [place] 2192109-01-2022 13:34-0400 BP/Pulse Patient PositionNohemi Garcia [address] [place], [place] 2192109-01-2022 13:34-0400 Diastolic blood rmqferrc84 mm[Hg]Nohemi Garcia [address] [place], [place] 2192109-01-2022 13:34-0400Heart rate67 /minNohemi Garcia [address] [place], [place] 2192109-01-2022 13:34-0400Mean blood kddbsffo236 mm[Hg]Nohemi Garcia [facility]09-01-2022 13:34-0400 Respiratory rate18 /minNohemi Garcia [address] [place], [place] 2192109-01-2022 13:34-5370UwZ4% (BldA) [Mass fraction]93 %Nohemi Garcia [address] [place], [place] 2192109-01-2022 13:34-0400 Systolic blood hatpdfif355 mm[Hg]Nohemi Garcia [address] [place], [place] 2192109-01-2022 13:34-0400Mean blood mm[Hg]Nohemi Garcia [address] [place], [place] 2192108-11-2022 13:16-0400Body svnuknetmjn76.24 [degF][facility]08-11-2022 13:16-0400Diastolic blood ycfhekwc46 mm[Hg][facility]08-11-2022 13:16-0400Heart rate78 /min[facility]-2022 13:16-0400Mean blood mffrzlev98 mm[Hg][facility]08-11-2022 13:16-0733VuZ5% (BldA) [Mass fraction]96 %[facility]08-11-2022 13:16-0400 Systolic blood mm[Hg][facility] 11-30-2021 13:00-0400Blood Pressure Location[facility]-2022 13:00-0400Respiratory rate16 /[facility] 11:53-0400Blood Pressure LocationNohemi Garcia [address] [place], [place] [id number] 11:53-0400Body pcaimfvuctx05.06 [degF]Nohemi Garcia [address] [place], [place] [id number] 11:53-0400 BP/Pulse Patient PositionNohemi Garcia [address]07-14-2022 11:53-0400 Diastolic blood vuftxede73 mm[Hg]Nohemi Garcia [address]07-14-2022 11:53-0400Heart rate64 /minNohemi Garcia [address]07-14-2022 11:53-0400Mean blood oboiuesn76 mm[Hg]Nohemi Garcia [address]07-14-2022 11:53-0400 Respiratory rate17 /Sudeep Garcia [address]07-14-2022 11:53-2310GrE1% (BldA) [Mass fraction]97 %Nohemi Garcia [address] [place], [place] [id number] 11:53-0400 Systolic blood yfdckuiy467 mm[Hg]Nohemi Garcia [address]06-16-2022 13:46-0400Body oxrhobasvaa12.42 [degF][facility]06-16-2022 13:46-0400Diastolic blood yhagjzms52 mm[Hg][facility]06-16-2022 13:46-0400Heart rate69 /[facility]06-16-2022 13:46-0400Mean blood mm[Hg][facility]06-16-2022 13:46-7655HuB1% (BldA) [Mass fraction]96 %[facility]06-16-2022 13:46-0400 Systolic blood xedkccyf361 mm[Hg][facility] 09-07-2021 12:48-0400Body whhgqnuidwv34.6 [degF][facility]05-19-2022 12:48-0400Diastolic blood vywdarqp10 mm[Hg][facility]05-19-2022 12:48-0400Heart rate72 /min [facility]05-19-2022 12:48-0400Mean blood rwgwiapu27 mm[Hg][facility]05-19-2022 12:48-6703ShW7% (BldA) [Mass fraction]96 %[facility]05-19-2022 12:48-0400Systolic blood agnozfdw987 mm[Hg][facility]05-19-2022 12:00-0400Heart rate69 /min [facility]05-19-2022 12:00-7957RvS6% (BldA) [Mass fraction]98 %[facility]05-15-2022 00:20-0400Body ojyhdootgrn47.78 [degF]Carlos Martin [facility]05-15-2022 00:20-0400 Diastolic blood ieifotkw96 mm[Hg]Carlos Martin [address] [place], [place] 2192105-15-2022 00:20-0400Heart rate86 /minNoah Martin [facility]05-15-2022 00:20-0400 Respiratory rate16 /minNoah Martin [facility]05-15-2022 00:20-7745TsT2% (BldA) [Mass fraction]95 %Carlos Martin [facility]05-15-2022 00:20-0400 Systolic blood vroppkdc192 mm[Hg]Carlos Salazar [facility]04-21-2022 12:35-0400Body lttxtdaqiak91.06 [degF]Rickey Azar [facility]04-21-2022 12:35-0400 Diastolic blood lnjrbzra48 mm[Hg]Rickey Askew [facility]04-21-2022 12:35-0400Heart rate77 /minPeter Azar [facility]04-21-2022 12:35-0400Mean blood drkrzqeb87 mm[Hg]Rickey Askew [facility]04-21-2022 12:35-0400 Respiratory rate12 /minPeter Azar [facility]04-21-2022 12:35-7969ZsH8% (BldA) [Mass fraction]97 %Rickey Askew [facility]04-21-2022 12:35-0400 Systolic blood vadxflrq843 mm[Hg]Rickey Askew [facility]04-06-2022 10:27-0400Body vkfjiiuncic73.88 [degF]Senthil LaishaflaquitoAshtabula County Medical Center04-06-2022 10:27-0400Diastolic blood xfucrqkv72 mm[Hg][facility] Caldera[facility]04-06-2022 10:27-0400Heart rate59 /minSenthil CalderaAshtabula [facility]04-06-2022 10:27-0400Mean blood cofooayz706 mm[Hg]Senthil VereniceAshtabula [facility] Medical Center04-06-2022 10:27-0849BtA7% (BldA) [Mass fraction]97 %[facility]04-06-2022 10:27-0400 Systolic blood hfzsfdsi855 mm[Hg][facility] 07-26-2021 10:00-0400Respiratory rate16 /min[facility]03-29-2022 12:18-0400Body hzeiwsfgwip69.7 [degF][facility]03-29-2022 12:18-0400Diastolic blood jbyyqbea96 mm[Hg][facility]03-29-2022 12:18-0400Heart rate60 /min[facility]03-[facility]-2022 12:18-0400 Mean blood mm[Hg][facility] 07-18-2021 12:18-1286UnC1% (BldA) [Mass fraction]98 %[facility]03-29-2022 12:18-0400Systolic blood wigqgyzr479 mm[Hg] [facility]03-29-2022 12:00-0400Respiratory rate16 /min[facility]03-22-2022 10:20-0400 Body sepfhlvuumh44.7 [degF]Gavino MARCOSRosemarie 016-5896Hndcfm-EqjqoJ.[facility] [place] Encounters Encounter DateEncounter TypeCare ProviderFacilityStart: 01-27-2025 End: 88-40-8050Ewqbesokk Result EncounterMary Rodriguez MD Work Phone: [facility] External Department UnsolicitedStart: 01-27-2025 End: 33-94-3548Yhobqkiha Result EncounterMary Rodriguez MD Work Phone: [facility] External Department UnsolicitedStart: 12-15-2024 End: 20-00-7198svyqfpgbqxQzxfeoa AdamowiczFacility:FTMCStart: 11-17-2024 End: 70-38-7093vueltshzlzQqixtxy AdamowiczFacility:FTMCStart: 10-20-2024 End: 27-16-1572caqkvkijciNizwmlw AdamowiczFacility:FTMCStart: 10-20-2024 End: 94-19-7911Svfayfa encounter procedureMaria Parham Healthleopoldo [facility] Start: 09-30-2024 End: 10-52-4571Mbqsdila Result EncounterSenthil Interianoflaquito DO Work Phone: [facility] External Department UnsolicitedStart: 09-30-2024 End: 35-87-7192Hmteiagl Result EncounterDavidleopoldo Zapata Mgjuliaflaquito DO Work Phone: [facility] External Department UnsolicitedStart: 09-30-2024 End: 02-30-1723Ysrrjli encounter procedureMary Rodriguez MD Work Phone: [facility] Work Phone: Start: 09-30-2024 End: 12-84-5501dzskfyeewnEgkjj M Alda MD Work Phone: [facility] Work Phone: Start: 09-22-2024 End: 65-06-3081gfsudlyqcwUxtibku AdamowiczFacility:FTMCStart: 09-22-2024 End: 41-80-6021Ajfhjzm encounter procedureMaria Parham Healthleopoldo [facility] Start: 09-09-2024 End: 83-34-9794kwjcbjcqlhOexuqjq AdamowiczFacility:FTMCStart: 09-09-2024 End: 23-40-7878Luoqybw encounter procedureMaria Parham Healthleopoldo [facility] CenterflaquitoAs[facility] Start: 08-25-2024 End: 46-15-5152atxezvguxrGugspym AdamowiczFacility:FTMCStart: 08-25-2024 End: 42-17-8199Sbwmtuz encounter procedureTimothy [facility] Start: 08-17-2024 End: 49-30-7569Dffedijs Result EncounterDavidleopoldo Zapata Verenice DO Work Phone: [facility] External Department UnsolicitedStart: 08-17-2024 End: 77-16-8121Lcpdopuu Result EncounterSenthil Zapata Mgjuliaflaquito DO Work Phone: [facility] External Department UnsolicitedStart: 08-17-2024 End: 61-48-3355Kezfawc encounter procedureMary Rodriguez MD Work Phone: [facility] Work Phone: Start: 08-17-2024 End: 12-44-6321nxjobuyyrsYxqpd M Alda MD Work Phone: [facility] Work Phone: Start: 07-28-2024 End: 84-78-1800ypxaklddbiJtrunmk AdamowiczFacility:FTMCStart: 07-28-2024 End: 54-80-5696Xgdxvxj [facility] Start: 06-30-2024 End: 70-06-8616xeixpznpvtSvjywyf AdamowiczFacility:FTMCStart: 06-30-2024 End: 10-68-0300Iqrghgd [facility] Start: 06-02-2024 End: 11-96-0048vgcmnnettaOsokzpc AdamowiczFacility:FTMCStart: 06-02-2024 End: 47-67-3976Oznveec encounter procedure[facility] Start: 05-13-2024 End: 58-05-4537pewkgrlemaMkawccx AdamowiczFacility:FTMCStart: 05-13-2024 End: 46-99-8959Hobipop encounter procedureTimothy [facility] Start: 05-05-2024 End: 38-44-4267jplfmiwhizJmvmria AdamowiczFacility:FTMCStart: 05-05-2024 End: 94-22-4663Pwgrdcu [facility] Start: 04-29-2024 End: 37-72-7437Dgimumks Result EncounterDavidleopoldo Zapata Mgjuliaflaquito DO Work Phone: [facility] External Department UnsolicitedStart: 04-29-2024 End: 93-76-0638Yzneynne Result EncounterDavidleopoldo Zapata Mgjuliaflaquito DO Work Phone: [facility] External Department UnsolicitedStart: 04-29-2024 End: 93-86-0025Vcxcuzm encounter Brittany Rodriguez MD Work Phone: [facility] Work Phone: Start: 04-29-2024 End: 28-00-5553szvxjjuuhcNrgnh M Alda MD Work Phone: [facility] Work Phone: Start: 04-07-2024 End: 41-67-4624qigrkevyrlIevthyq AdamowiczFacility:FTMCStart: 04-07-2024 End: 59-56-7291Dtjapzu encounter procedureMaria Parham Healthloepoldo [facility] Start: 03-10-2024 End: 37-28-1609oljqfnezggGhjtrdn AdamowiczFacility:FTMCStart: 03-10-2024 End: 43-34-3446Wdlvzwu [facility] Start: 02-25-2024 End: 05-41-5035wyyqvhftjsDvaquts AdamowiczFacility:FTMCStart: 02-25-2024 End: 83-62-1019Wstfttb encounter procedureSenthil [facility] Start: 02-11-2024 End: 26-46-5107ljppnlxwwnHebqhdo AdameligioFacility:FTMCStart: 02-11-2024 End: 85-62-0953Upcrlia [facility] procedure[facility] Start: 01-09-2024 End: 83-95-5149swowbquzmpIkskxqi AdamowiczFacility:FTMCStart: 01-09-2024 End: 75-61-2158Pluqumi [facility] Start: 01-01-2024 End: 80-56-5837Rifnbnjwz Result EncounterMary Rodriguez MD Work Phone: [facility] External Department UnsolicitedStart: 01-01-2024 End: 26-70-8287Bxzjkbjlx Result EncounterMary Rodriguez MD Work Phone: [facility] External Department UnsolicitedStart: 12-30-2023 End: 39-09-7570Hxjfhqph Result EncounterSenthil Caldera DO Work Phone: [facility] External Department UnsolicitedStart: 12-30-2023 End: 06-42-8842Nylsvxbe Result EncounterSenthil Caldera DO Work Phone: [facility] External Department UnsolicitedStart: 12-30-2023 End: 62-12-4531Jfdvsrd encounter procedureMD Mary Rodriguez Work Phone: [facility] Work Phone: Start: 12-30-2023 End: 92-05-5488kjygwvdqnhNE Rugen M Alda Work Phone: [facility] Work Phone: Start: 12-27-2023 End: 91-89-1157Dgqkzqmsb Result EncounterMary Rodriguez MD Work Phone: [facility] External Department UnsolicitedStart: 12-27-2023 End: 16-52-9974Eafxhmtja Result EncounterMary Rodriguez MD Work Phone: [facility] External Department UnsolicitedStart: 09-12-2023 End: 56-44-3824qqdcmaqhqkIlqbbap AdamowiczFacility:FTMCStart: 09-12-2023 ambulatoryTimleopoldo CalderaFacility:FTMCStart: 09-12-2023 End: 20-61-8296Cnpzmsh encounter procedureTimleopoldo [facility] Start: 08-30-2023 End: 08-53-2624lokwsccohvPA Mary Rodriguez Work Phone: [facility] Work Phone: Start: 08-30-2023 End: 06-06-7020Hbbuoib encounter procedureMD Mary Rodriguez Work Phone: [facility] Work Phone: Start: 06-12-2023 End: 73-47-5054kscnvrzmfqLfozlrj AdamowiczFacility:FTMCStart: 06-12-2023 End: 71-97-8761Thnqcvk encounter [facility] Start: 66-54-3008Rygtkjxit Result EncounterMary Rodriguez MD Work Phone: [facility] External Department UnsolicitedStart: 06-05-2023 Clinisync Result EncounterMary Rodriguez MD Work Phone: [facility] External Department UnsolicitedStart: 05-31-2023 External Result EncounterSenthil Caldera DO Work Phone: [facility] External Department UnsolicitedStart: 05-31-2023 External Result EncounterSenthil Caldera DO Work Phone: [facility] External Department UnsolicitedStart: 05-31-2023 End: 88-23-4139mmlyclmkpsJH Mary Rodriguez Work Phone: [facility] Work Phone: Start: 05-31-2023 End: 89-09-4662Lvlyzja encounter procedureMD Mary Rodriguez Work Phone: [facility] Work Phone: Start: 09-90-4185Wyxlhztbt Result EncounterMary Rodriguez MD Work Phone: [facility] External Department UnsolicitedStart: 05-24-2023 Clinisync Result EncounterMary Rodriguez MD Work Phone: [facility] External Department UnsolicitedStart: 05-01-2023 End: 21-12-6689oxuoebejlhRhcofov AdamowiczFacility:FTMCStart: 05-01-2023 End: 06-87-3084Nimhlkl [facility] Start: 01-30-2023 End: 23-97-3476xsvqyjbptaMpqrxsc AdamowiczFacility:FTMCStart: 01-30-2023 End: 40-57-3208Mudlacj [facility] procedure[facility] Start: 12-20-2022 End: 87-47-6829Otkttssocp and management of inpatientWiemanuelyara Odell Dumasr Facility:FTMCStart: 12-20-2022 End: 16-11-7632Uxqxdehpwq and management of inpatientMbanefo OJUKWU [facility] Start: 12-19-2022 End: 06-49-5306Nyqjdrmlo department patient visitDavid Tong [facility] Start: 12-17-2022 End: 64-87-6891Zuqndchee department patient visitJeffery Murphy [facility] Start: 12-14-2022 End: 06-91-3342vwkjzworapFadonye HARBHARATFacility:CD:[id number]: 12-14-2022 End: 89-02-9445Liboaq pelvic examinationAbhinaviraj [facility] Start: 78-55-4868puqyihdawwCVH- Lorie Slater Facility:CD:[id number]: 11-16-2022 End: 94-02-1003sxnknoyeybAewimag AdamowiczFacility:CD:[id number]: 11-16-2022 End: 43-47-8882Ad-Between VisitPeter Askew [facility] Start: 11-06-2022 End: 03-19-9769hsstotgkrcDstytmg HARBHARATFacility:CD:[id number]: 11-06-2022 End: 85-89-0383Sye-SiteSammy [facility] Start: 11-04-2022 End: 38-45-5738ckhpqjulylExbnnwk HARWOODFacility:FTMCStart: 11-01-2022 End: 97-90-2263apomgvewnrNsvqg MoussawiFacility:FTMCStart: 11-01-2022 End: 99-15-0076YpvyzenlnwrSqoupsf Matt LOPEZ [facility] Start: 09-25-2022 End: 12-15-5890Ryztadn encounter procedureSenthil [facility] Start: 08-01-2022 End: 82-56-4613Pbfhvae [facility] Start: 07-30-2022 End: 59-95-1585Rwogjrs encounter procedureMaria Parham Healthleopoldo [facility] Start: 07-25-2022 End: 16-51-5939CxlcqaysfOajggpkSelect [facility]ty [facility] Start: 07-09-2022 End: 16-51-1765Mdpcnwn encounter procedure[facility] start: 06-06-2022 End: 03-09-3765Dajfmdm encounter procedure[facility] Start: 03-28-2022 End: 75-89-3950Fvhamri encounter procedure[facility] Start: 03-17-2022 End: 37-76-5391NfpzfyfnrIipz Katie Demboske [facility] start: 01-18-2022 End: 30-55-2156Czcgaws encounter [facility] start: 01-02-2022 End: 98-93-7077LszbwrcqpEqkxyfsSelect [facility]ty [facility] Start: 12-26-2021 End: 08-60-7166Xcprdow encounter procedureMaria Parham Healthleopoldo [facility] start: 12-21-2021 End: 66-00-5808Zuzqovm encounter procedureNohemi Garcia [facility] start: 11-30-2021 End: 82-61-1302Viuomkx encounter procedure[facility] Start: 11-27-2021 End: 39-93-2269Ixpvczi encounter procedure[facility] Start: 11-25-2021 End: 95-75-0058TrzhwjlfeBnmb Katie Radha [facility] Start: 11-02-2021 End: 12-34-6382Dntjkmr encounter procedureNohemi Gerard Radha [facility] Start: 11-01-2021 End: 41-40-8106Worvbcq encounter procedure[facility] Start: 10-05-2021 End: 70-40-2096Fepwkpp encounter procedure[facility] Start: 10-02-2021 End: 60-62-3423Rxansql encounter procedure[facility] Start: 09-07-2021 End: 97-34-6571Zuncjsr encounter procedure[facility] Start: 09-03-2021 End: 32-41-7484Qxypddqsd department patient visitCarlos Salazar [facility] Start: 08-21-2021 End: 04-26-8122Jbduiut encounter procedure[facility] Start: 08-21-2021 End: 42-80-5564Ebyrkyf encounter procedure[facility] Start: 08-10-2021 End: 00-21-6942Pacxxzz encounter procedureRickey Askew [facility] Start: 08-07-2021 End: 93-11-8398Lrarapa encounter procedureSelect [facility] Start: 07-26-2021 End: 49-74-6767Wcpdjyf encounter procedure[facility] Start: 07-26-2021 End: 12-46-8083Mvufycy encounter [facility] Start: 07-25-2021 End: 58-81-2033Hdo-admission assessmentMichael R NILL [facility] Start: 07-18-2021 End: 74-39-0403Lezzrmw encounter [facility] Start: 07-11-2021 End: 23-24-8704Wzpwywo encounter procedureMichael R NILL 153-7637Hkfijr-IfnsxJ.[facility]. [facility] [place] Procedures DateProcedureProcedure DetailPerforming ClinicianStart: 11-72-5186YRF POTASSIUM Mary Rodriguez MD Work Phone: Start: 93-00-7815OJJHRPU POCT GLUCOMETERSSenthil Caldera DO Work Phone: Start: 72-75-7268Mpplohfl emission tomography with computed tomographyMary Rodriguez MD Work Phone: Start: 29-48-5295QLBAMRA POCT GLUCOMETERSSenthil Caldera DO Work Phone: Start: 60-06-2981Kovlktpv emission tomography with computed tomographyMary Rodriguez MD Work Phone: Start: 90-67-8035RTZWWHY POCT GLUCOMETERSTimleopoldo Caldera DO Work Phone: Start: 91-57-4732Xcxvgvpt emission tomography with computed tomographyMary Rodriguez MD Work Phone: Start: 28-49-3429WGQ CBC WITH AUTO Eve Rodriguez MD Work Phone: Start: 87-72-5272VKPRRLM POCT GLUCOMETERSTimleopoldo Caldera DO Work Phone: Start: 50-07-7657Dfmsvrsh emission tomography with computed tomographyMD Mary Rodriguez Work Phone: Start: 36-59-9945XRP CBC WITH AUTO Eve Rodriguez MD Work Phone: Start: 96-69-0409Rbajkskb emission tomography with computed tomographyMD Mary Rodriguez Work Phone: Start: 13-15-2940WXE CBC WITH AUTO Eve Rodriguez MD Work Phone: Start: 73-99-6197Lzoqykel emission tomography with computed tomographyMD Mary Rodriguez Work Phone: Start: 59-61-9821KANAKLP POCT GLUCOMETERSTimleopoldo Caldera DO Work Phone: Start: 37-09-3505RQF CBC WITH AUTO Eve Rodriguez MD Work Phone: Start: 66-79-2257Noqg needle biopsy of breastMichael NILL Comment on above:rightStart: 88-58-5594VmxwvxkzhzdYeciu Alda MD Work Phone: Tonsillectomy and adenoidectomyMichael NILL Plan of Treatment DateCare ActivityDetailAuthorStart: 91-42-8509Maqbhyezh for malignant neoplasm of colonNOMS HealthcareStart: 97-81-7652Lcmogfnvl vaccinationInfluenza Vaccine (#1)[facility] HealthcareStart: 57-79-9356Ncrqasuki vaccinationInfluenza Vaccine (#1) [facility] HealthcareStart: 25-32-1915Tsyid screening for proteinDiabetes: Urine Protein ScreeningNOKY HealthcareStart: 73-86-3174Etlmrzygce A1c measurement Diabetes: Hemoglobin G8CJXMN HealthcareStart: 51-91-7726Gxinymvje vaccination Influenza Vaccine (#1)[facility] HealthcareStart: 05-25-2023Medicare Annual Wellness (AWV)Medicare Annual Wellness (AWV)[facility] HealthcareStart: 88-97-4144Hvirt screening for proteinDiabetes: Urine Protein ScreeningNOKY HealthcareStart: 64-31-3874Gobbbtdt screeningDiabetes: Retinopathy ScreeningNOKY HealthcareStart: 20-00-2551Gbkfmsvwv for malignant neoplasm of colonNOMS Healthcare Immunizations Immunization DateImmunizationNotesCare MnqoebhmAegdmzeq31-06-2771bfecajjbc virus vaccine, unspecified formulationMary Rodriguez MD Work Phone: [facility] HospitalCyvqswpzzt76-15-0288Vlcscvjbl, High-dose Seasonal, Quadrivalent, Preservative FreeMary Rodriguez MD Work Phone: [facility] HospitalUsmlvaosaq09-20-3603ztprhcwyi virus vaccine, unspecified formulationMary Rodriguez MD Work Phone: [facility] HospitalIwcnvgawwy67-55-7721fjnhgsdrs virus vaccine, unspecified formulationMichael NILL [phone]-LgattJ.W. [facility] [place] [id number], high dose seasonal, preservative-freeMary Rodriguez MD Work Phone: [facility] HospitalRndmeiqwmy77-27-9832wtxrfgypw, high dose seasonal, preservative-freeMary Rodriguez MD Work Phone: [facility] HospitalOooslvvtyo06-19-7287gmzddbyqh, high dose seasonal, preservative-freeMary oRdriguez MD Work Phone: [facility] HospitalYiqhaekskl41-42-5403inlxhgknnplz conjugate vaccine, 13 Jory Rodriguez MD Work Phone: [facility] Payers DatePayer CategoryPayerPolicy ID2025Medicare [id number] Insurance [id number] Health [id number]-pay2023Medicaid [id number] 2023Medicaid [id number] (Managed Care) [id number] [facility] [id number] 2022-Present [address] [place] [address] 1.2.840.171202.1.13.693.2.7.3.253[id number] 2.0.1.317359.3.57[id number] 2.0.1.491328.3.579.2.88[id number] 2..1.317501.3.57[id number] 2.16.840.1.653055.3.579.2.99939-04-3484Xsvqejs02316403 2.16.840.1.644889.3.579.2.86398-25-4513Lidjjnp17857244 2.16.840.1.014766.3.579.2.20823-69-3933Xhkrwtm75517111 2.16.840.1.858617.3.579.2.07771-26-9889Bgyrcgr31021794 2.16.840.1.560297.3.579.2.00474-59-7470Devcwfc33903712 2.16840.1.143927.3.579.2.49901-11-3150Odadypj78599072 2.840.1.747676.3.579.2.05672-34-1384Lpzpdqd93076199 2.16.840.1.748770.3.579.2.48736-77-6198Ayuqobm67756509 2.16.840.1.090742.3.579.2.70219-49-1225Wmdxsuz07432052 2.16.840.1.327378.3.579.2.02483-98-4253Fibpnnu17803175 2.840.1.510760.3.579.2.92627-98-8821Uceaxdd66198211 2.16.840.1.392698.3.579.2.76053-75-6861Mhtsbdn47924071 2.16.840.1.318929.3.579.2.59247-03-1817Uecmzpe86786103 2.16.840.1.728395.3.579.2.24366-58-1918Wahxkoc92643290 2.16.840.1.475570.3.579.2.88787-21-0587Fokvafz28784448 2.16840.1.754237.3.579.2.26862-34-7094Cxrqbtd49064099 2.16840.1.795794.3.579.2.44623-65-1136Obzovsa71445428 2.840.1.243496.3.579.2.46037-31-2797Xnlgrio25279395 2.840.1.024790.3.579.2.75321-75-2125Viktnkh30162217 2.0.1.392267.3.579.2.26593-57-6654Oexjova79509707 2.840.1.976104.3.579.2.82294-24-7343Vixdrwq19747802 2.0.1.007989.3.579.2.72995-64-0717Dehvzta86668585 2.0.1.059790.3.579.2.11354-02-1324Cixghdr73777191 2.840.1.096537.3.579.2.49490-56-5069Vsmvxmv22842500 2.840.1.510457.3.579.2.76294-84-7125Zukampp37109450 2.840.1.544516.3.579.2.263Jldojvh36707597 2.840.1.972835.3.579.2.531 Qiocyxd18540342 2.840.1.058817.3.579.2.004Hhziwok39400561 2.840.1.310412.3.579.2.417Bvorahk08190217 2.840.1.843022.3.579.2.531 Social History DateTypeDetailFacilityStart: 07-04-2021 End: 93-59-5806Dmwxcbh smoking statusNever smoked tobacco (finding)[facility] [place] Tobacco smoking statusNeC[facility] Clinic [facility] [place] Start: 75-92-7421Gyl Assigned At BirthFePremier Health [facility] [place] Start: 32-04-8238Qnixnod use and exposureSmokeless tobacco non-userNOMS HealthcareStart: 72-38-7023Tjfcgpr of Social functionNOMS HealthcareStart: 96-47-4051Dix Assigned At BirthNot on fileNOKY HealthcareStart: 06-69-3371Pvc Assigned At BirthFeCleveland Clinic Marymount HospitalTobacco smoking status NHISUnknown if ever smokedBarberton Citizens Hospital Work Phone: Start: 99-09-3479BkkLfsvoez sex unknown (finding) [facility] Glenbeighexual OrientationAshtab[facility] Start: 07-11-2018 End: 87-78-6992TjvPcmjjt (finding)[facility] Functional Status NwotWqjginkambImsnseEjgspdkl40-53-0347Zyoqvvbxmt StatusNoAs[facility]08-31-2023Functional StatusAs[facility]ula [facility]08-30-2023 Functional StatusN/[facility]08-28-2023Functional StatusN/A [facility]07-14-2023Functional StatusN/[facility]07-13-2023Functional StatusAshtabula [facility] Clinical Notes 07-11-2021 to 09-30-2024 Note Date & JresZfodSrquhgmb03-79-4721 Nuclear medicine Diagnostic study note [facility] [place] [address] Nuclear Medicine Report Signed Patient: Marlen Staley MR#: [id number] : 1950 Acct:[id number] Age/Sex: 74 / F ADM Date: 5 Loc: PE Room: Type: [facility] Attending Dr: Senthil Caldera - [facility] [place] DO Copies to: Fady Muir Jr, DO [...] No pneumothorax. No free airor free fluid. Healedremote fracture left pubic rami. PET/PET tumor subq tx strat sb-mt IMPRESSION: Residual abnormal activity involving the right breast consistent with residual disease. FDG avid left paratracheal lymph node new since prior PET/CT. Progression of disease cannot BE excluded. Impression dictated by: Fady Muir Jr., D.O. 09/30/2024 11:48 AM Dictation Location: [place] [address] Transcribed By: [facility] 09/30/24 1148 Dictated By: Fady Muir Jr, DO 09/30/24 1057 Signed By: 09/30/24 1148 [facility]05-21-2025 NoteOncology Progress Note Chief Complaint Follow up on breast cancer, [...] is unknown as she was adopted. Outpatient medicationsinclude furosemide, lisinopril, simvastatin, fish oil. Noted by [...] normal iron. normal b12, folate, hb 9.4 withmcv 104. September 12, 2023 Recent PET/CT from [facility] that was compared to a PET/CT from May notes slightly enlarging right breast nodule 2.3 cm from previous 1.8 cm. No other evidence of metastatic disease or progression of disease. continues on 200mg kisquali and exemestane. no complaints. 01/09/24 hb 10.2 stable. creat 1.2 stable. labs scanned from [place]. [facility] PET[facility]CT [facility] [facility] enlargement of her primary right breast mass from 2.3cm to 3.8cm. we think she is on kisquali 400mg daily (600mg is standard dose). she is supposed to be on exemestane daily as well. [facility] will raise kisquali to full dose and stop exemestane and start faslodex. 05/13/24 she is doing well, enjoys the care home for the most part. continues kisquali. no changes in her breast. [facility] continues faslodex kisquali. [facility] with improved tumor and axillary adenopathy. 09/09/24 recent labs from may 26 noted hb 9.8, mcv 105, albumin 3.3, creat 1.6, b12 good. continues monthly faslodex (with kisquali). pet/ct from 08/07/24 at [facility] notes no significant change in pet/ct finding compared to04/29/24. Residual abnormal activity in right breast with subthreshold activity involving right axillary lymph nodes. she is inquiring about variability in her injection site discomfort. faslodex. Physical Examination PS 3 - lives in [facility], in wheelchair today, cant stand or [...] hesitant for aggressive therapy or chemotherapy [place] (more content not included)...[facility]04-28-2025 [facility] [place] [address] [place] [address] Nuclear Medicine Report Signed Patient: Marlen Staley MR#: [id number] : 1950 Acct:[id number] Age/Sex: 74 / F ADM Date: 5 Loc: Room: Type: [facility] Attending Dr: Senthil Caldera - [facility] DO Copies to: Fady Muir Jr, DO [...] No abnormal activity is seen involving the lungsare mediastinum. Abdomen/pelvis: No abnormal activity. Soft tissue/bones: [...] Jr., DAspenOAspen 08/17/2024 3:15 PM Dictation [facility] Transcribed By: [facility] 08/17/24 1515 Dictated By: Fady Muir Jr, DO 08/17/24 1455 Signed By: 08/17/24 1515 [facility]01-25-2025 NoteOncology Progress Note Chief Complaint Breast Ca; here to go [...] is unknown as she was adopted. Outpatient medicationsinclude furosemide, lisinopril, simvastatin, fish oil. Noted by [...] normal iron. normal b12, folate, hb 9.4 withmcv 104. September 12, 2023 Recent PET/CT from [facility] that was compared to a PET/CT from May notes slightly enlarging right breast nodule 2.3 cm from previous 1.8 cm. No other evidence of metastatic disease or progression of disease. continues on 200mg kisquali and exemestane. no complaints. 01/09/24 hb 10.2 stable. creat 1.2 stable. labs scanned from [place]. Recent [facility] notes enlargement of her primary right breast mass from 2.3cm to 3.8cm. we think she is on kisquali 400mg daily (600mg is standard dose). she is supposed to be on exemestane daily as well. [facility] will raise kisquali to full dose and stop exemestane and start faslodex. 05/13/24 she is doing well, enjoys the care home for the most part. continues kisquali. no changes in her breast. [facility] continues faslodex kisquali. [facility] with improved tumor and axillary adenopathy. Physical Examination PS 3 - lives in [facility], in wheelchair today, cant stand or [...] 200mg daily 3wks o (more content not included)...[facility]01-08-2025 Nuclear medicine Diagnostic study [facility] Main [place] [address] [place] [address] Nuclear Medicine Report Signed Patient: Marlen Staley MR#: [id number] : 1950 Acct:[id number] Age/Sex: 73 / F ADM Date: 5 Loc: Room: Type: [facility] Attending Dr: Senthil Caldera - [facility] DO Copies to: MD Senthil Guo DO~ Ordering Provider: Senthil Caldera DO Date [...] Carlos Guaman M.D.04/29/2024 4:17 PM Dictation Location: [place] [address] Transcribed By: [facility] 04/29/24 1617 Dictated By: Carlos Guaman MD 04/29/24 1607 Signed By: 04/29/24 1617 [facility] Work Phone: 1(112) 879-414709-19-2024 NoteOncology Progress Note Chief Complaint Breast Ca; here to go [...] is unknown as she was adopted. Outpatient medicationsinclude furosemide, lisinopril, simvastatin, fish oil. Noted by [...] normal iron. normal b12, folate, hb 9.4 withmcv 104. September 12, 2023 Recent PET/CT from [facility] that was compared to a PET/CT from May notes slightly enlarging right breast nodule 2.3 cm from previous 1.8 cm. No other evidence of metastatic disease or progression of disease. continues on 200mg kisquali and exemestane. no complaints. 01/09/24 hb 10.2 stable. creat 1.2 stable. labs scanned from [place]. [facility] notes enlargement of her primary right breast mass from 2.3cm to 3.8cm. we think she is on kisquali 400mg daily (600mg is standard dose). she is supposed to be on exemestane daily as well. [facility] will raise kisquali to full dose and stop exemestane and start faslodex. Physical Examination PS 3 - lives in [facility], in wheelchair today, cant stand or [...] repeat labs weekly sh (more content not included)...[facility]02-21-2024 Hospital Discharge instructions Follow Up Care 06/12/2023 11:56:20 With:Senthil Caldera DO ONC Address: [facility] [address] [place] [address]. [place] [address] [phone] Fax Business (1) When: Unknown With:Senthil Caldera DO, ONC Address: [facility] [place] [address]- [phone] Fax Business (1) When: Unknown Comments:f/u in [address] priorcbc, cmp, [id number] prior to f/u and in 2 months. [facility]02-21-2024 Hospital Discharge instructions Patient Education 06/12/2023 11:39:22 High-Protein and [...] high-protein foods. Preparing meals Add whole milk, vjfl-sdj-quja, or heavy cream to cereal, pudding, soup, [...] potatoes. Grains Pasta. Quick breads. Muffins. Pancakes. Zpohs-ea-tng cereal. Meats and other proteins Peanut butter. Nuts and seeds. Dairy Heavy cream. Whipped cream. Cream cheese. Sour cream. Ice cream. Custard. Pudding. Whole milk dairyproducts. Beverages Meal-replacement beverages. Nutrition shakes. Fruit juice. [...] weight or heal faster after an injury, illness,or surgery. To increase your protein and calories, [...] provider. Document Revised: 03/12/2021 Document Reviewed: 03/12/2021 ZMP Patient Education 2022 [employer]. 06/12/2023 11:25:57 Breast Cancer, Female Breast Cancer, Female Breast cancer is a malignant growth of tissue (tumor) in the breast. Unlike noncancerous (benign) tumors, malignant tumors are cancerous and can spread to other parts of the body. The two most commontypes of breast cancer start in the milk [...] done to remove the entire breast (mastectomy) andnipple. Lymph nodes may also be removed. Radiation [...] the growth and spread of cancer cells. Thesemedicines target a specific part of the cancer cell and usually cause fewer side effects than chemotherapy. Targeted therapy may be used alone or in combination with chemotherapy. Immunotherapy, which is the use of medicines to boost the immune system to recognize and destroy cancer cells more effectively. A combination of surgery, radiation, chemotherapy, or hormone therapy may be needed to treat breastcancer. Follow these instructions at home: Take tspw-ppy-vxwxbbi and prescription medicines only as told by your health care provider. Eat a healthy diet. A healthy diet includes lots of fruits and vegetables, low- fat dairy products, lean meats, and fiber. ?Make [...] is important. Where to find more information [place] [employer]: www.cancer.org National Cancer [place]: www.cancer.gov Contact a health care provider if: [...] provider. Document Revised: 02/26/2022 Document Reviewed: 02/26/2022 ZMP Patient Education 2022 [employer]. 06/12/2023 11:25:02 Fall Prevention in the Home, Adult, Oehw-jj-Gepa Fall Prevention in the Home, Adult Falls [...] Keep items that you use often in ntgp-yf-cvqjt places. Lower the shelves around your home [...] of the way. Do not use floor british virgin islander or wax that makes floors slippery. What [...] for Disease Control and PreventionELIO: www.cdc.gov National [place] on Aging: www.derrick.nih.gov Contact a doctor if: You are afraid of falling at home. You feel weak, drowsy, or dizzy at home. You fall at home. Summary There are many simple things that you can do to make your home safe and to help prevent falls. Ways to make your home safe include removing things that can make you trip and installing grab barsin the bathroom. Ask for help when making these changes in your home. This information is not intended to replace advice given to you by your health care provider. Make sure you discuss any questions you have with your health care provider. Document Revised: 01/08/2022 Document Reviewed: 11/09/2020 ZMP Patient Education 2022 [employer]. Follow Up Care 05/01/2023 15:02:18 With:Senthil Caldera DO, ONC Address: [facility] [address] [place] [address] [phone] Fax Business (1) When: Unknown Comments:cbc, cmp, iron studies, b12, foalte, epo [id number] monthly. f/u in 3 months. change arimidex to exemestane 25mg daily. pet/ct prior to f/u.make sure images from pet from may and august are both in our system for review at f/u in august. [facility]10-11-2023 Hospital Discharge instructions Follow Up Care 01/30/2023 15:16:04 With:Senthil Caldera Address: [facility] [place] [address]- [phone] Fax Business (1) When: Unknown Comments:f/u in 6 wks. pet/ct in [facility] soon. f/u after. cbc, cmp, iron studies, b12, foalte, epo, [id number] prior to f/u. [facility]09-03-2023 Evaluation + Plan noteExtracted from: Title:Discharge NoteAuthor:Zaheer Sloan DODate:12/23/22 Discharge To, Anticipated II - Correction Unit Transported by, Anticipated - Wheelchair van [...] bedtime) With When Contact Information Azar HANKS, Rickye Lynn, [address] [address]- Additional Instructions: Antibiotic Medicine, Adult, Xiuc-wx-Ovhn Extracted from:Title:APSO NoteAuthor:Zaheer Sloan DODate:12/22/22 1. UTI (urinary tract infect ion) (N39.0: [...] history of malignant neoplasm of breast) Continue [facility] Patient follows with Dr. Hernandez as outpatient [...] Implement Plan Referral to Resource Center Extracted from:Title:APSO NoteAuthor:Zaheer Sloan DODate:12/21/22 1. UTI (urinary tract infect ion) (N39.0: Urinary tract infection, site not specified) Urine culture positive for E. coli, pansensitive We will continue Keflex as patient tolerated in the past We will continue to monitor for signs of improvement Ordered: Initial Hospital Care/Day Moderate 55 Minutes 56484 Sbsq Hospital Care/Day Straight Fwd 25 Minutes 73306 2. Age-related cognitive decline (R41.81: Age-related cognitive decline) PT/OT Monitor labs IV fluids Likely will need placement as it was already attempted by nurse at Dr. Askew's office 3. History of breast cancer (Z85.3: Personal history of malignant neoplasm of breast) [facility] Patient follows with Dr. Hernandez as outpatient [...] Status - Full Vital Signs Weight Extracted from:Title:ED NoteAuthor:Pedro Nava DODate:12/20/22 1. UTI (urinary tract infect ion) (N39.0: [...] Urine Culture XR Chest Single View Extracted from:Title:Admission H & PAuthor:Zaheer Sloan DODate:12/20/22 XR Chest Single View 12/20/22 16:36:03 IMPRESSION: [...] visit growing greater than 100,000 gram-negative glynn revising clerk's Continue antibiotics, will continue keflex due to pts hx of PNC allergy and allready took keflex Wait for culture sensitivities Ordered: Initial Hospital Care/Day Moderate 55 Minutes 12811 2. Age-related cognitive decline (R41.81: Age-related cognitive [...] maintain balance, improving gait and building on physicalstrength. Future Appointments Appointment Date:12/26/2022 02:45:00 PM Scheduled Provider:Senthil Caldera DO Location:[facility].ONCOLOGY Appointment Type:ONC Office Visit 15 (FT) Future Scheduled Tests Laboratory* CA 27 29 10/25/22 * CA 27 29 11/22/22 * CBC w/ Auto Diff 10/25/22 * CBC w/ Auto Diff 11/22/22 * Comprehensive Metabolic Panel 10/25/22 * Comprehensive Metabolic Panel 11/22/22 [facility]09-03-2023 Hospital Discharge instructions Patient Education 12/23/2022 09:48:15 Antibiotic Medicine, Adult, Wevw-ih-Ggts Antibiotic Medicine, Adult Antibiotic medicines treat infections [...] medicine. Follow these instructions at home: Take ovim-ttj-hllqhbi and prescription medicines as told by your [...] provider. Document Revised: 01/26/2020 Document Reviewed: 01/26/2020 ZMP Patient Education 2022 [employer]. Follow Up Care 12/20/2022 15:04:36 With:Azar HANKS, NIKOLE Benedict Address: [address] [place] [address]- When: Unknown [facility]09-03-2023 NoteAdmission and Discharge Information Admit [...] 39.2 % Lymph Auto - 42.1 % [place] Auto - 13.6 % Eos Auto - 2.5 % Basophil Auto - 2.6 % Neutro Absolute - 1.3 E9/L Lymph Absolute - 1.4 E9/L [place] Absolute - 0.4 E9/L Eos Absolute - [...] - 111 mg/dL POC Device SN - [id number] POC User ID - [id number] POC Username - JUAN HENNESSY CBC w/ [...] Disposition Discharge To, An (more content not included)...[facility] Comment on above:Result Comment: Electronically Signed By: Zaheer Sloan DO\.br\Date and Time Signed: 12/23/22 09:49 [id number] NotePT evaluation completed with an [facility] score 24. Pt currently requires Mod A for bed mobility andMax A x2 for STS transfers. Pt was unable to ambulate and a Max A stand pivot transfer was needed to get from bed to bedside commode. Due to pt's current cognition and functional status, would recommend SNF/ECF.[facility]09-01-2023 NoteCRM entered the room to discuss dc planning. PCP, DME and insurance discussed. Patient is alert andinvolved in plan of care. Contact information provided and whiteboard updated. Pt [facility] from [facility], they are unable to accept back. Call to elayne Turcios, she is ok with referral to Ab. Ptwill need precert due to [employer]. Medicare Rights form reviewed with elayne Turcios (POA) over the phone. Call to dtmatt Cervantes [phone] and she is agreeable to any SNF. ANt dc TBD. Karolina says they will be able to provide pt's chemo to facility.[facility]:Result Comment: Electronically Signed By: Brooklynn Connor\Date and Time Signed: 12/21/22 11:15 [id number] NoteBasic Information Admit Date/Time:12/20/2022 16:52 Chief Complaint Pt came in via [facility] for dysuria and weakness. Pt states she was here earlier and has only taken one of the ATBs. History of Present Illness Ngab76-lwhj-pil female with past medical history of breast [...] are currently trying to get into [facility]. They are on a waiting list. [...] as well and was recently admitted to care home and signed herself out as well as [...] room as him. Review of Systems Scoring Sunshine Fall Risk Score: 25 (12/20/22) Physical Exam [...] 15:45:00) Lymph Auto: 28.4 % (12/20/22 15:45:00) [place] Auto: 12.5 % (12/20/22 15:45:00) Eos Auto: 1.3 % (12/20/22 15:45:00) Basophil Auto: 3.5 % High (12/20/22 15:45:00) Neutro Absolute: 2.1 E9/L (12/20/22 15:45:00) Lymph Absolute: 1.1 E9/L (12/20/22 15:45:00) [place] Absolute: 0.5 E9/L (12/20/22 15:45:00) Eos Absolute: [...] 10.2 pg/mL (12/20/22 18:40:00) (more content not included)...[facility]:Result Comment: Electronically Signed By: Zaheer Sloan DO.br\Date and Time Signed: 12/20/22 19:18 [id number] Evaluation + Plan noteExtracted from:Title:ED NoteAuthor:Ran HANKS, TimDate: 12/20/22 1. Generalized weakness (R53 .1: Weakness) 2. Frequent falls (R29.6: Repeated falls) 3. Anemia (D64.9: Anemia, unspecified) 4. Dehydration (E86.0: Dehydration) 5. Urinary tract infection (N39.0: Urinary tract infection, site not specified) Orders: cephalexin, 500 mg = 1 cap(s), Oral, QID, X 7 day(s), # 28 cap(s), Refills(s) 0, Pharmacy: [facility] #[facility], 167.6, cm, 12/19/22 20:43:00 EDT, Height/Length Dosing, 87.1, kg, 12/19/22 20:43:00 EDT, Weight Dosing cephalexin, 500 mg = 1 cap(s), Cap, Oral, Once, Stop date 12/19/22 23:45:00 EDT, STAT, Start date 12/19/22 23:45:00 EDT, 12/19/22 23:45:00 EDT Sodium Chloride 0.9% intravenous solution, 1,000 mL, Soln-IV, IV, Once, Stop date 12/19/22 23:44:00EDT, STAT, Start date 12/19/22 23:44:00 EDT, Infuse [...] Panel 10/25/22 * Comprehensive Metabolic Panel 11/22/22 [facility]08-31-2023 Hospital Discharge instructions Patient Education 12/20/2022 00:37:19 Urinary Tract Infection, Adult, Wjay-kd-Bfnq Urinary Tract Infection, Adult A urinary tract [...] Follow these instructions at home: Medicines Take eeix-dhh-tphfbps and prescription medicines only as told by [...] provider. Document Revised: 11/18/2020 Document Reviewed: 11/18/2020 ZMP Patient Education 2022 [employer]. 12/20/2022 00:37:19 Anemia Anemia Anemia is a [...] spleen. Follow these instructions at home: Take qyag-znt-uvuekxq and prescription medicines only as told by [...] provider. Document Revised: 02/20/2022 Document Reviewed: 03/15/2020 ZMP Patient Education 2022 [employer]. 12/20/2022 00:37:19 Dehydration, Adult, Vsyk-jx-Kpyb Dehydration, Adult Dehydration is condition in which [...] of fat or sugar. General instructions Take kbrs-yfa-ysnguhb and prescription medicines only as told by [...] start slowly drinking other clear fluids. Take jdiq-wvv-brfpfpw and prescription medicines only as told by your doctor. Get help right away if you have any symptoms of very bad dehydration. This information is not intended to replace advice given to you by your health care provider. Make sure you discuss any questions you have with your health care provider. Document Revised: 11/19/2019 Document Reviewed: 11/19/2019 ZMP Patient Education 2022 [employer]. Follow Up Care 12/19/2022 20:39:35 With:Rickey Askew Address: [place] [address] Business (1) When:12/21/2022 [place] [id number] Hospital Discharge instructions Patient Education 12/17/2022 13:33:49 [...] Follow these instructions at home: Medicines Take yroq-elh-uecghbw and prescription medicines only as told by [...] as fried or sweet foods. ?Take an abov-uwl-pbqsgan or prescription medicine for constipation. If you [...] provider. Document Revised: 02/05/2022 Document Reviewed: 02/05/2022 ZMP Patient Education 2022 [employer]. Follow Up Care 12/17/2022 10:20:15 With:JOSÉ ANTONIO VARGAS Address: [address] [place] [address] Business (1) When:12/20/2022 12:53:13 With:Gavino Lugo Address: [address] [place] [phone] Business (1) When:12/20/2022 12:52:03 With:Rickey Askew Address: [address] [place] [address] Business (1) When:12/20/2022 12:51:59 [facility]08-28-2023 Evaluation + Plan noteExtracted from: Title:ED NoteAuthor:Kael SIMPSON, JansenDate:12/17/22 Fall (W19.XXXA: Unspecified fall, initial encounter) Lumbar compression fracture (S32.000A: Wedge compression fracture of unspecified lumbar vertebra, initial encounter for closed fracture) Ordered: oxycodone, 5 mg = 1 tab(s), Oral, q6hr, X 3 day(s), # 15 tab(s), Refills(s) 0, Pharmacy: [facility], 168, cm, 12/17/22 10:29:00 EDT, Height/Length [...] Panel 10/25/22 * Comprehensive Metabolic Panel 11/22/22 [facility]07-18-2023 NoteHOSPITAL REGULATIONS: All Positive and [...] THROUGH Gavino Lugo D.O. ls Dictated: 11/02/2022 [id number] Transcribed: 11/02/2022 cc:Rickey Askew M.D.[facility] HospitalComment on above:Result Comment: Electronically Signed By: Gavino Lugo DO\.br\Date and Time Signed: 11/06/22 07:17 [id number] NoteHOSPITAL REGULATIONS: All Positive and Important Negative [...] going to rehabilitation. Her friend from the [facility], which is her old neighbor, was in [...] Nursing staff as well as friend from [place] is present. She has bruising to the [...] of infection. Social Service for rehabilitation placement [facility]. Orthopedics to sign off with follow up in the office in 4 weeks for a repeat x-ray examination of the pelvis. She voiced a verbal understanding and her friend from [facility] is present. Ivett Palacio Dictated: 11/05/2022 [id number] Transcribed: 11/05/2022 cc:Rickey Askew M.D.[facility] Hospital[facility] on above:Result Comment: Electronically Signed By: Gavino Lugo DO\.br\Date and Time Signed: 11/06/22 07:17 [id number] Hospital Discharge instructions Patient Education 11/04/2022 12:28:31 [...] Consider working with a physical therapist or new product trainer who can develop an exercise plan to help you gain muscle strength. General instructions Take deje-sgb-qmuhdow and prescription medicines only as told by [...] provider. Document Revised: 03/11/2022 Document Reviewed: 03/11/2022 ZMP Patient Education 2022 [employer]. Follow Up Care 11/01/2022 19:54:24 With:Hollis MERRILL Address: [address] [place] [address] [place] [address] [address] [place] [address] Business (1) When: Unknown Comments:Urinary retnetion w/dooley With:Gavino Lugo Address: [address] [place] [address] Business (1) When: Unknown Comments:Call for followup appointment in 4 weeks for repeat pelvis xray With:Rickey Askew Address: [address] [place] [address] Business (1) When: Unknown [facility]07-16-2023 Evaluation + Plan noteExtracted from: Title:Discharge NoteAuthor:Trevor HANKS, madDate:11/04/22 Stable Discharge To, Anticipated II - Correction Unit Discharged to - long-term unit Discharge Diet(s): Regular (11/02/22 15:25:00) Prescriptions anastrozole 1 mg Tab, 1 mg= 1 tab(s), Oral, Daily, 11 refills Arimidex 1 mg Tab, 1 mg= 1 tab(s), Oral, Daily, 3 refills ergocalciferol 50,000 intl units Cap, 19074 International_Unit= 1 cap(s), Oral, q7day Kisqali (200 [...] bedtime) With When Contact Information Gavino Lugo [address] [place] [phone]- Business (1) Additional Instructions: Call for followup appointment in 4 weeks for repeat pelvis xray Rickey Askew In [address] [place] [address]- [employer] (1) Additional Instructions: Addendum by Trevor HANKS, [facility] on November 04, 2022 12:36:52 EDT Of note patient was found to have Urinary retention. Dooely cath was placed. A follow-up with urology was made. She will need to follow up w/urology Extracted from:Title:Admission H & PAuthor:Mariia LOPEZ DO RDate:11/02/22 1. 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 Patient will be observation status. Extracted from:Title:ED NoteAuthor:Kelly Meredith DO ADate:11/02/22 Generalized weakness (R53.1: Weakness) Multiple falls (R29.6: [...] Panel 10/25/22 * Comprehensive Metabolic Panel 11/22/22 [facility]07-16-2023 NoteAdmission and Discharge Information Admitting [...] therapy and they deemed her appropriate for snf facility. She was accepted to snf facility and will be discharged there. On [...] 65.9 % Lymph Auto - 24.6 % [place] Auto - 5.0 % Eos Auto - 3.3 % Basophil Auto - 1.2 % Neutro Absolute - 4.4 E9/L Lymph Absolute - 1.6 E9/L [place] Absolute - 0.3 E9/L Eos Absolute - [...] Discharge Disposition Discharge To, Anticipated II - Correction Unit Discharged to - long-term unit Discharge Diet Discharge Diet(s): Regular (11/02/22 15:25:00) Discharge Medication List Prescriptions anastrozole 1 mg Tab (more content not included)...[facility] Comment on above:Result Comment: Electronically Signed By: Trevor HANKS, Wyatt\.br\Date and Time Signed: 11/04/22 12:37 [id number] NotePT Evaluation done this date. Pt. with 12/13 on AM-PAC this date. She is very resistant to movement due to pain. She is unable to stand even with attempts of max A. Will benefit from SNF.[facility]07-14-2023 NoteChief Complaint pt to ED via [facility] with c/o chest bruise from fall earlier today. c/o increasing weakness. denies thinners or hitting head with earlier fall. denies PMH. hx of DM. pt A&Ox4 upon ED arrival, applied to potline monitor. History of Present Illness Patient is [...] 7.3 fL (11/01/22::00) Neutro Auto: 65.9 % (11/01/22::) Lymph Auto: 24.6 % (11/01/22::) [place] Auto: 5 % (11/01/22::) Eos Auto: 3.3 % (11/01/22::) Basophil Auto: 1.2 % (11/01/22::) Neutro Absolute: 4.4 E9/L (11/01/22::00) Lymph Absolute: 1.6 E9/L (11/01/22::00) [place] Absolute: 0.3 E9/L (11/01/22::00) Eos Absolute: 0.2 E9/L (11/01/22::00) Basophil Absolute: 0.1 E9/L (11/01/22::00) Glucose Lvl: 130 mg/dL (11/01/22::00) BUN: 26 mg/dL High (11/01/22::00) Creatinine: 1.3 mg/dL (11/01/22::00) eGFR: 43 mL/min/1.73 m2 Low (11/01/22::00) BUN/Creat Ratio: 20 (11/01/22::00) Sodium Lvl: 138 mmol/L (11/01/22::00) Potassium Lvl: 4.2 mmol/L (11/01/22::00) Chloride: 105 mmol/L (11/01/22 22:01:00) CO2: 22 mmol/L (11/01/22 22:01:00) AGAP: 15 mEq/L (11/01/22 22:01:00) Calcium Lvl: 9.1 mg/dL (11/01/22 22:01:00) Alk Phos: 110 Int._Unit/L High (11/01/22 22:01:00) ALT: 13 Int._Unit/L (11/01/22 22:01:00) AST: 20 Int._Unit/L (11/01/22 22:01:00) Total Protein: 6.9 gm/dL (11/01/22 22:01:00) Albumin Lvl: 3.5 gm/dL (11/01/22:01:00) Globulin: 3.4 gm/dL (11/01/22 22:01:00) A/G Ratio: 1 Low (11/01/22:01:00) Bili Total: 0.9 mg/dL (11/01/22 22:01:00) Bili [...] medications once reconciled. Hydralazine (more content not included)...[facility]:Result Comment: Electronically Signed By: Mariia LOPEZ DO.johnnie\Date and Time Signed: 11/02/22 01:35 [id number] Hospital Discharge instructions Follow Up Care 09/27/2022 14:06:46 With:Senthil Caldera Address: [address] [address] [phone] Fax Business (1) When: Unknown Comments:f/u in 3 months. pet/ct prior to f/u. cont arimidex and kisquali. cbc, cmp and [id number] monthly. [facility]02-15-2023 Hospital Discharge instructions Follow Up Care 06/06/2022 13:40:28 With:Senthil Caldera Address: [address] [address]- [phone] Fax Business (1) When: Unknown Comments:cbc, cmp, [id number] in 4 weeks and prior to f/u in 8 weeks. f/u with independent living advisor. iron studies, b12, folate with next labs. [facility]12-07-2022 Hospital Discharge instructions Follow Up Care 03/28/2022 14:49:31 With:Senthil Caldera Address: [place] [address] [address] [place] [id number]- [phone] Fax Business (1) When: Unknown Comments:f/u in 2 months. pet/ct prior to f/ucbc, cmp, [id number], every 6 weeks. [facility]09-29-2022 Hospital Discharge instructions Follow Up Care 01/18/2022 14:52:57 With:Senthil Caldera Address: [place] [address] [address] [phone] Fax Business (1) When: Unknown Comments:raise kisquali to 400mg for 3wks on and 1 week off. f/u with me or anthony in 2 months. cbc, cmp, [id number] prior to f/ucbc, cmp monthly onthis medicaztion cont arimidex. [facility]09-01-2022 Hospital Discharge instructions Follow Up Care 12/21/2021 14:19:38 With:Senthil Caldera Address: [address] [phone] Fax Business (1) When: Unknown Comments:continue Kisqali 200mg 3wks on, 1wk offcbc, cmp in 4wks and 8wksPET scan in Novfollow-up in 8wks with Dr. Hernandez after PET scan [facility]08-11-2022 Hospital Discharge instructions Follow Up Care 11/30/2021 13:55:25 With:Senthil Caldera Address: [address] [place] [address] [phone] Fax Business (1) When: Unknown Comments:re-start kisqali at 200mg daily x 3 weeks, then 1 week offcmp weekly x 4wksfollow-up with Dr. Hernandez in 4wkscbc, cmp at follow-up [facility]07-14-2022 Hospital Discharge instructions Follow Up Care 11/02/2021 12:27:30 With:Senthil aCldera Address: [address] [place] [address] [phone] Fax Business (1) When: Unknown Comments:cont arimidex. Hold kisquali for 3 wks, recheck cbc, cmp, prior to f/u. hold lasix. Send this note to Dr. Kofi sumner. [facility]06-16-2022 Hospital Discharge instructions Follow Up Care 10/05/2021 14:21:47 With:Senthil Caldera Address: [address] [place] [address] [phone] Fax Business (1) When: Unknown Comments:continue kisqalifollow-up in 1mocbc, cmp at follow-up [facility]05-19-2022 Hospital Discharge instructions Follow Up Care 09/07/2021 13:41:37 With:Senthil Caldera Address: [facility] [address] [address] [phone] Fax Business (1) When: Unknown Comments:continue Kisqali follow-up in 1 mocbc, cmp, [id number] at follow-up [facility]05-15-2022 Evaluation + Plan noteExtracted from: Title:ED NoteAuthor:Carlos Salazar DODate:09/03/21 Acute urticaria (L50.8: Othe r urticaria) Orders: [...] Location:FT.ONCOLOGY Appointment Type:ONC Office Visit 15 (FT) [facility]05-15-2022 Hospital Discharge instructions Patient Education [...] instructions at home: Medicines Take and apply dmda-xph-rvzjhea and prescription medicines only as told by [...] what causes your hives. Take and apply ntop-oqw-mhkfbdg and prescription medicines only as told by your health care provider. Keep all follow-up visits as told by your health care provider. This is important. This information is not intended to replace advice given to you by your health care provider. Make sure you discuss any questions you have with your health care provider. Document Released: 04/08/2006 Document Revised: 10/22/2018 Document Reviewed: 10/22/2018 ZMP Patient Education [facility]. Follow Up Care 09/03/2021 00:14:38 With:Rickey Askew Address: [address] [place] [phone] Business (1) When:Within 3 Day(s) [facility]04-21-2022 Hospital Discharge instructions Follow Up Care 08/10/2021 13:38:09 With:Nohemi Garcia Address: [address] [address]- [phone] Business (1) When: Unknown Comments:f/u 1 monthcont kisquali.cbc, cmp, [id number] at f/u. With:Senthil Caldera Address: [address] [place] [address]- [phone] Fax Business (1) When: Unknown [facility]04-05-2022 Hospital Discharge instructions Follow Up Care 07/25/2021 15:46:11 With:Senthil Caldera Address: [address] [place] [address]- [phone] Fax Business (1) When: Unknown Comments:f/u in 2 wks, cbc, cmp, [id number] at f/u. [facility]03-22-2022 Hospital Discharge instructions Follow Up Care 07/11/2021 14:05:16 With:Senthil Caldera Address: [address] [place] [phone] Fax Business (1) When: Unknown Comments:echo and port sooni will call Dr. Tabor. f/u with me in 2 wks plan AC. Cbc, cmp, ceapet/ct prior to f/u. [facility] Future Appointments Appointment Date:07/18/2021 12:00:00 PM Scheduled Provider:Senthil Caldera DO Location:.ONCOLOGY Appointment Type:ONC Office Visit New 45 (FT) [facility] General [facility] [place] Evaluation + Plan note Future Appointments Appointment Date:08/08/2021 10:00:00 AM Scheduled [facility]: [facility] Type:US Breast (FT) Appointment Date:08/09/2021 10:30:00 AM Scheduled Provider: Location:[facility] Appointment Type:Surgical PAT FT Appointment Date:08/10/2021 12:30:00 PM Scheduled Provider:Senthil Caldera DO [facility] Type:ONC Office Visit 15 (FT) Appointment Date:08/17/2021 08:00:00 AM Scheduled Provider: Location:[facility] Appointment Type:Surgery FT Appointment Date:08/22/2021 10:20:00 AM Scheduled Provider:Gavino TABOR MD Location:[facility] Appointment Type:GS Post Op 15 Future Scheduled Tests Laboratory* CA 27 29 08/09/21 * CBC w/ Auto Diff 08/09/21 * CBC w/ Auto Diff 07/26/21 * CEA 07/26/21 * Comprehensive Metabolic Panel 08/09/21 * Comprehensive Metabolic Panel 07/26/21 Radiology* US Perc Biopsy Lymph Node 08/08/21 [facility]ments Appointment Date:08/10/2021 12:30:00 PM Scheduled Provider:Senthil Caldera DO Location:.ONCOLOGY Appointment Type:ONC Office Visit 15 (FT) Diagnostic Tests Pending * CA 27 29 08/07/21 Future Scheduled Tests Laboratory* CBC w/ Auto Diff 07/26/21 * CEA 07/26/21 * Comprehensive Metabolic Panel 07/26/21 [facility] Appointment Date:08/10/2021 12:30:00 PM Scheduled Provider:Senthil Caldera DO Location:FT.ONCOLOGY Appointment Type:ONC Office Visit 15 (FT) Future Scheduled Tests Laboratory* CBC w/ Auto Diff 07/26/21 * CEA 07/26/21 * Comprehensive Metabolic Panel 07/26/21 [facility] App[facility]ments Appointment Date:09/07/2021 12:30:00 PM Scheduled Provider:Senthil Caldera DO Location:.ONCOLOGY Appointment Type:ONC Office Visit 15 (FT) Future Scheduled Tests Laboratory* CBC w/ Auto Diff 08/24/21 * CEA 08/24/21 * Comprehensive Metabolic Panel 08/24/21 [facility]ments Appointment Date:08/21/2021 02:00:00 PM Scheduled Provider: Location:FT.ONCOLOGY Appointment Type:ONC Patient Education - 1hr (FT) Appointment Date:09/07/2021 12:30:00 PM Scheduled Provider:Senthil Caldera DO Location:.ONCOLOGY Appointment Type:ONC Office Visit 15 (FT) Future Scheduled Tests Laboratory* CBC w/ Auto Diff 09/07/21 * CEA 09/07/21 * Comprehensive Metabolic Panel 09/07/21 [facility] Appointment Date:09/07/2021 12:30:00 PM Scheduled Provider:Senthil Caldera DO Location:FT.ONCOLOGY Appointment Type:ONC Office Visit 15 (FT) [facility] Future App[facility]ments Appointment Date:10/05/2021 01:30:00 PM Scheduled Provider:Senthil Caldera DO Location:.ONCOLOGY Appointment Type:ONC Office Visit 15 (FT) Future Scheduled Tests Laboratory* CA 27 29 10/08/21 * CBC w/ Auto Diff 10/08/21 * Comprehensive Metabolic Panel 10/08/21 [facility]ments Appointment Date:10/05/2021 01:30:00 PM Scheduled Provider:Senthil Caldera DO Location:FT.ONCOLOGY Appointment Type:ONC Office Visit 15 (FT) Diagnostic Tests Pending * CA 27 29 10/02/21 [facility] App[facility]ments Appointment Date:11/02/2021 01:45:00 PM Scheduled Provider:Senthil Caldera DO Location:FT.ONCOLOGY Appointment Type:ONC Office Visit 15 (FT) Future Scheduled Tests Laboratory* CA 27 29 11/02/21 * CBC w/ Auto Diff 11/02/21 * Comprehensive Metabolic Panel 11/02/21 [facility] Future App[facility]ments Appointment Date:11/02/2021 11:15:00 AM Scheduled Provider:Nohemi Garland Location:FT.ONCOLOGY Appointment Type:ONC Office Visit 15 (FT) Diagnostic Tests Pending * CA 27 29 11/01/21 [facility] App[facility]ments Appointment Date:11/30/2021 01:15:00 PM Scheduled Provider:Senthil Caldera DO Location:FT.ONCOLOGY Appointment Type:ONC Office Visit 15 (FT) Future Scheduled Tests Laboratory* CBC w/ Auto Diff 12/03/21 * Comprehensive Metabolic Panel 12/03/21 [facility] App[facility]ments Appointment Date:11/30/2021 01:15:00 PM Scheduled Provider:Senthil Caldera DO Location:FT.ONCOLOGY Appointment Type:ONC Office Visit 15 (FT) [facility] Future App[facility]ments Appointment Date:12/21/2021 01:15:00 PM Scheduled Provider:Senthil Caldera DO Location:FT.ONCOLOGY Appointment Type:ONC Office Visit 15 (FT) Future Scheduled Tests Laboratory* CBC w/ Auto Diff 12/21/21 * Comprehensive Metabolic Panel 12/21/21 [facility]ments [...] Panel 01/18/22 * Comprehensive Metabolic Panel 01/25/22 [facility]ments [...] Panel 01/18/22 * Comprehensive Metabolic Panel 01/25/22 [facility]ments [...] Panel 02/06/22 * Comprehensive Metabolic Panel 02/13/22 [facility] App[facility]ments Appointment Date:03/28/2022 02:15:00 PM Scheduled Provider:Senthil Caldera DO Location:FT.ONCOLOGY Appointment Type:ONC Office Visit 15 (FT) Future Scheduled Tests Laboratory* CBC w/ Auto Diff 03/08/22 * CBC w/ Auto Diff 04/05/22 * Comprehensive Metabolic Panel 03/08/22 * Comprehensive Metabolic Panel 04/05/22 [facility]ments Appointment Date:06/06/2022 01:15:00 PM Scheduled Provider:Senthil Caldera DO Location:FT.ONCOLOGY Appointment Type:ONC Office Visit 15 (FT) [facility] Future App[facility]ments Appointment Date:08/01/2022 02:00:00 PM Scheduled Provider:Senthil Caldera DO Location:FT.ONCOLOGY Appointment Type:ONC Office Visit 15 (FT) Future Scheduled Tests Laboratory* CBC w/ Auto Diff 06/06/22 * Comprehensive Metabolic Panel 06/06/22 [facility] Future Appointments Appointment Date:08/01/2022 02:00:00 PM Scheduled Provider:Senthil Caldera DO Location:FT.ONCOLOGY Appointment Type:ONC Office Visit 15 (FT) Diagnostic Tests Pending * CA 27 29 07/09/22 Future Scheduled Tests Laboratory* CA 27 29 07/31/22 * CBC w/ Auto Diff 07/31/22 * Comprehensive Metabolic Panel 07/31/22 [facility] App[facility]ments Appointment Date:08/01/2022 02:00:00 PM Scheduled Provider:Senthil Caldera DO Location:FT.ONCOLOGY Appointment Type:ONC Office Visit 15 (FT) Diagnostic Tests Pending * CA 27 29 07/30/22 [facility] [...] Transferrin 08/29/22 * Vitamin B12 Level 08/29/22 [facility] App[facility]ments Appointment Date:09/27/2022 01:45:00 PM Scheduled Provider:Nohemi Garland Location:FT.ONCOLOGY Appointment Type:ONC Office Visit 30 (FT) Diagnostic Tests Pending * CA 27 29 09/25/22 [facility] Future App[facility]ments Appointment Date:11/22/2022 02:15:00 PM Scheduled Provider:Senthil Caldera DO Location:FT.ONCOLOGY Appointment Type:ONC Office Visit 15 (FT) Future Scheduled Tests Laboratory* CA 27 29 10/25/22 * CA 27 29 11/22/22 * CBC w/ Auto Diff 10/25/22 * CBC w/ Auto Diff 11/22/22 * Comprehensive Metabolic Panel 10/25/22 * Comprehensive Metabolic Panel 11/22/22 [facility] Future Appointments Appointment Date:12/26/2022 02:45:00 PM Scheduled Provider:Senthil Caldera DO Location:FT.ONCOLOGY Appointment Type:ONC Office Visit 15 (FT) Future Scheduled Tests Laboratory* CA 27 29 10/25/22 * CA 27 29 11/22/22 * CBC w/ Auto Diff 10/25/22 * CBC w/ Auto Diff 11/22/22 * Comprehensive Metabolic Panel 10/25/22 * Comprehensive Metabolic Panel 11/22/22 [facility] Evaluation + Plan note Future Appointments Appointment Date:05/01/2023 02:15:00 PM Scheduled Provider:Senthil Caldera DO [facility] Office Visit 30 (FT) Future Scheduled Tests Laboratory* CA 27 29 03/02/23 * CA 27 29 04/01/23 * CA 27 29 05/02/23 * CBC w/ Auto Diff 03/02/23 * CBC w/ Auto Diff 04/01/23 * CBC w/ Auto Diff 05/02/23 * Comprehensive Metabolic Panel 03/02/23 * Comprehensive Metabolic Panel 04/01/23 * Comprehensive Metabolic Panel 05/02/23 [facility] [...] Panel 04/01/23 * Comprehensive Metabolic Panel 05/02/23 [facility] Future App[facility]ments Appointment Date:09/12/2023 10:45:00 AM Scheduled Provider:Senthil Caldera DO Location:FTONCOLOGY Appointment Type:ONC Office Visit 30 (FT) Future [...] Transferrin 09/12/23 * Vitamin B12 Level 09/12/23 [facility] [...] Panel 12/26/23 * CA 27 29 12/26/23 [facility] Future Appointments Appointment Date:05/13/2024 02:40:00 PM Scheduled Provider:Senthil Caldera DO Location:FTONCOLOGY Appointment Type:ONC Office Visit 20 (FT) Diagnostic Tests Pending * CBC w/ Auto Diff 02/08/24 * Comprehensive Metabolic Panel 02/08/24 * Ferritin 05/10/24 * Iron Level 05/10/24 * Iron Percent Saturation 05/10/24 * Transferrin 05/10/24 * Vitamin B12 Level 05/10/24 * Folate Level 05/10/24 * Erythropoietin Level 05/10/24 [facility] evaluation + Plan note Future Appointments Appointment Date:02/25/2024 02:30:00 PM Scheduled Provider: Location:FT.ONCOLOGY Appointment Type:ONC Injection (FT) Appointment Date:03/10/2024 02:00:00 PM Scheduled Provider: Location:FT.ONCOLOGY Appointment Type:ONC Injection (FT) Appointment Date:05/13/2024 02:40:00 PM Scheduled Provider:Senthil Caldera DO Location:FT.ONCOLOGY Appointment Type:ONC Office Visit 20 (FT) [facility] evaluation + Plan note Future Appointments Appointment Date:03/10/2024 02:00:00 PM Scheduled Provider: Location:FT.ONCOLOGY Appointment Type:ONC Injection (FT) Appointment Date:05/13/2024 02:40:00 PM Scheduled Provider:Senthil Caldera DO Location:FT.ONCOLOGY Appointment Type:ONC Office Visit 20 (FT) [facility] evaluation + Plan note Future Appointments Appointment Date:04/07/2024 02:00:00 PM Scheduled Provider: Location:FT.ONCOLOGY Appointment Type:ONC Injection (FT) Appointment Date:05/13/2024 02:40:00 PM Scheduled Provider:Senthil Caldera DO Location:FT.ONCOLOGY Appointment Type:ONC Office Visit 20 (FT) [facility] evaluation + Plan note Future Appointments Appointment Date:05/05/2024 02:00:00 PM Scheduled Provider: Location:FT.ONCOLOGY Appointment Type:ONC Injection (FT) Appointment Date:05/13/2024 02:40:00 PM Scheduled Provider:Senthil Caldera DO Location:FT.ONCOLOGY Appointment Type:ONC Office Visit 20 (FT) [facility] evaluation + Plan note Future Appointments Appointment Date:05/13/2024 02:40:00 PM Scheduled Provider:Senthil Caldera DO Location:.ONCOLOGY Appointment Type:ONC Office Visit 20 (FT) Appointment Date:06/02/2024 02:45:00 PM Scheduled Provider: Location:.ONCOLOGY Appointment Type:ONC Injection (FT) Appointment Date:06/30/2024 03:00:00 PM Scheduled Provider: Location:.ONCOLOGY Appointment Type:ONC Injection (FT) Appointment Date:07/28/2024 03:00:00 PM Scheduled Provider: Location:.ONCOLOGY Appointment Type:ONC Injection (FT) [facility] evaluation + Plan note Future [...] Iron Percent Saturation 09/09/24 * Transferrin 09/09/24 [facility] evaluation + Plan note Future Appointments Appointment Date:06/30/2024 03:00:00 PM Scheduled Provider: Location:.ONCOLOGY Appointment Type:ONC Injection (FT) Appointment Date:07/28/2024 03:00:00 PM Scheduled Provider: Location:.ONCOLOGY Appointment Type:ONC Injection (FT) Appointment Date:09/09/2024 02:40:00 PM Scheduled Provider:Senthil Caldera DO Location:.ONCOLOGY Appointment Type:ONC Office Visit 20 (FT) [facility] evaluation + Plan note Future Appointments Appointment Date:07/28/2024 03:00:00 PM Scheduled Provider: Location:.ONCOLOGY Appointment Type:ONC Injection (FT) Appointment Date:09/09/2024 02:40:00 PM Scheduled Provider:Senthil Caldera DO Location:FT.ONCOLOGY Appointment Type:ONC Office Visit 20 (FT) [facility] Evaluation + Plan note Future Appointments Appointment Date:08/25/2024 03:00:00 PM Scheduled Provider: Location:FT.ONCOLOGY Appointment Type:ONC Injection (FT) Appointment Date:09/09/2024 02:40:00 PM Scheduled Provider:Senthil Caldera DO Location:FT.ONCOLOGY Appointment Type:ONC Office Visit 20 (FT) [facility] Evaluation + Plan note Future Appointments Appointment Date:09/09/2024 02:40:00 PM Scheduled Provider:Senthil Caldera DO Location:.ONCOLOGY Appointment Type:ONC Office Visit 20 (FT) Appointment Date:09/22/2024 02:00:00 PM Scheduled Provider: Location:.ONCOLOGY Appointment Type:ONC Injection (FT) Appointment Date:10/20/2024 02:00:00 PM Scheduled Provider: Location:.ONCOLOGY Appointment Type:ONC Injection (FT) Appointment Date:11/17/2024 02:00:00 PM Scheduled Provider: Location:FT.ONCOLOGY Appointment Type:ONC Injection (FT) Appointment Date:12/15/2024 02:30:00 PM Scheduled Provider: Location:.ONCOLOGY Appointment Type:ONC Injection (FT) [facility] Evaluation + Plan note Future Appointments Appointment Date:09/22/2024 02:00:00 PM Scheduled Provider: Location:FT.ONCOLOGY Appointment Type:ONC Injection (FT) Appointment Date:10/20/2024 02:00:00 PM Scheduled Provider: Location:.ONCOLOGY Appointment Type:ONC Injection (FT) Appointment Date:11/17/2024 02:00:00 PM Scheduled Provider: Location:.ONCOLOGY Appointment Type:ONC Injection (FT) Appointment Date:12/15/2024 02:30:00 PM Scheduled Provider: Location:.ONCOLOGY Appointment Type:ONC Injection (FT) Appointment Date:03/10/2025 02:00:00 PM Scheduled Provider:Senthil Caldera DO Location:FT.ONCOLOGY Appointment Type:ONC Office Visit 20 (FT) Diagnostic Tests Pending * CBC w/ Auto Diff 8/21/25 * Comprehensive Metabolic Panel 12/10/24 * CEA 12/10/24 * CA 27 29 12/10/24 * CBC w/ Auto Diff 02/24/25 * Comprehensive Metabolic Panel 02/24/25 * CEA 02/24/25 * CA 27 29 02/24/25 [facility] Evaluation + Plan note Future Appointments Appointment Date:10/20/2024 02:00:00 PM Scheduled Provider: Location:FT.ONCOLOGY Appointment Type:ONC Injection (FT) Appointment Date:11/17/2024 02:00:00 PM Scheduled Provider: Location:.ONCOLOGY Appointment Type:ONC Injection (FT) Appointment Date:12/15/2024 02:30:00 PM Scheduled Provider: Location:.ONCOLOGY Appointment Type:ONC Injection (FT) Appointment Date:03/10/2025 02:00:00 PM Scheduled Provider:Senthil Caldera DO Location:.ONCOLOGY Appointment Type:ONC Office Visit 20 (FT) [facility] Evaluation + Plan note Future Appointments Appointment Date:11/17/2024 02:00:00 PM Scheduled Provider: Location:.ONCOLOGY Appointment Type:ONC Injection (FT) Appointment Date:12/15/2024 02:30:00 PM Scheduled Provider: Location:.ONCOLOGY Appointment Type:ONC Injection (FT) Appointment Date:03/10/2025 02:00:00 PM Scheduled Provider:Senthil Caldera DO Location:.ONCOLOGY Appointment Type:ONC Office Visit 20 (FT) [facility] Evaluation noteNo assessment information available [facility] Work Phone: Hospital course Narrative No data available for this section [facility] General Surgery [place] [facility] Discharge instructions No data available for this section [facility] General Surgery [place] Progress note No data available for this section [facility] Summary Purpose Family History No [...] FoundNo Family History Records Found Advance Directives Advance Directive Response Recorded Date/ Time Advance [...] section and content) DATE CREATED AUTHOR 09/08/2021 [facility] DATE CREATED AUTHOR AUTHOR'S ORGANIZ ATION 09/14/2023 [facility] DATE CREATED AUTHOR AUTHOR'S ORGANIZ ATION 09/15/2023 [facility] DATE CREATED AUTHOR AUTHOR'S ORGANIZ ATION 10/05/2023 [facility] DATE CREATED AUTHOR AUTHOR'S ORGANIZ ATION 01/15/2024 [facility] DATE CREATED AUTHOR AUTHOR'S ORGANIZ ATION 11/02/2024 [facility] DATE CREATED AUTHOR AUTHOR'S ORGANIZ ATION 12/17/2024 [facility] Care Team (unrecognized sect ion and content) Team MemberRelationshipSpecialtyStart DateEnd Date Rickey Askew MD [address] [place] [address] PCP - [facility]06/20/22 Rickey Askew MD [address] [place] [address] PCP - [facility]09/19/22 Team Status: Active Member Role Status Dates Mary Rodriguez MD Primary Care Provider Active Team Status: Inactive Member Role Status Dates Senthil Caldera II, DO Attending Provider Active Start: May 31, 2023 End: May 31toño Rodriguez [facility] ProviderActiveStart: May 31, 2023 End: May 31, 2023 Team Status: Inactive Member Role Status Dates Mary Rodriguez MD Primary Care Provider Active S tart: August 30, 2023 End: August 30, 2023Senthil Caldera II, DOAttending ProviderActiveStart: August 30, 2023 End: August 30, 2023 Team Status: Inactive Member Role Status Dates Mary Rodriguez MD Primary Care Provider Active S tart: December 30, 2023 End: December 30, 2023Senthil Caldera [facility] , DOAttending ProviderActive Start: December 30, 2023 End: December 30, 2023Team MemberRelationshipSpecialtyStart DateEnd Date Rickey Askew MD [address] [place] [address] PCP - [facility]06/20/22 UnallocatedIliana MD [address] [place] [address] PCP - [facility]08/14/23Team MemberRelationshipSpecialtyStart DateEnd Date UnallocatIliana rangel MD [address] [place] [address] PCP - [facility]08/14/23 Team Status: Inactive Member Role Status Dates Mary Rodriguez MD Primary Care Provider Active S tart: April 29, 2024 End: April 29, 2024Timleopoldo HollidayN[facility] , [facility] ProviderActive Start: April 29, 2024 End: April 29, 2024Team MemberRelationshipSpecialtyStart DateEnd Date Unallocated, [place] Provider, [place] [address] [facility] Team Status: Inactive Member Role Status Dates Mary Rodriguez MD Primary Care Provider Active S tart: August 17, 2024 End: August 17, 2024Timleopoldo HollidayNortheast [facility] , DO[facility] ProviderActiveStart: August 17, 2024 End: August 17, 2024 Team Status: Inactive Member Role Status Dates Mary Rodriguez MD Primary Care Provider Active S tart: September 30, 2024 End: September 30, 2024Timleopoldo HollidayNortheast [facility] , DOAttending ProviderActiveStart: September 30, 2024 End: September 30, 2024 [...] BE BASED ON THE PRIMARY CLINICAL RECORDS. [facility] [employer] [facility]. provides no warranty or guarantee of the accuracy or completeness of information in this document.
[2025-02-24 08:23] LABS: Potassium 5.3 mmol/L (3.5-5.1)
== END 2025-02-24 06:52 | disposition home or self-care (01) ==
LOC: LAB 06:51
PROVIDERS: PCP Family Medicine; Visit Provider Family Medicine
DX: E87.5 Hyperkalemia (principal)
CPT/HCPCS: 36415; 84132

== ENCOUNTER 2025-03-24 12:35 | Outpatient (REF) | payer MEDICARE, MEDICAID, SELFPAY ==
--- OUTSIDE RECORDS SUMMARY | 2025-03-22 19:56 | XMS_ITS | Continuity of Care Document ---
Author Organization [facility] Address [address] [place] [address] Phone Care Team Providers [employer] Name Role Phone Mary Rodriguez MD Primary [facility] Provider [facility] Attending Provider Care Teams Patient Care Team Team Status: Active Member Role/Relationship Status Dates Mary Rodriguez MD Primary Care Provider Active Patient Care Team Team Status: Inactive Member Role/Relationship Status Dates Mary Rodriguez MD Primary Care Provider Active S tart: March 22, 2025 End: March 22, 2025Timleopoldo HollidayMiss[facility] , Attending ProviderActive Start: March 22, 2025 End: March 22, 2025 Chief Complaint and Reason for Visit Chief Complaint Admit Date C50.411 C79.51 March 22, 2025 1 0:15am Allergies, Adverse Reactions, Alerts Allergen Type Severity Reaction Last Updated Verified Status No Known Allergies Allergy Unknown August 30, 2023 7:10amYesActive Social History Smoking Status Unknown if ever smoked Observation Status Observation Response Date of Response Legal Sex Female (finding) Sex Assigned At [facility] 1950 Advance Directives Advance Directive Response Recorded Date/ Time Advance Directives No May 27, 2023 8:14am Insurance Providers Guarantor Florina eRbeka Address [address] [facility] [id number] Info.Home Phone: Coverage Status Update:2024 Payer Group Member ID Coverage Type Subscriber Relationship to Subscriber Effective Date Expiration Date Medicaid [id number] [place] Id: [id number] [address] [facility] [address] Home Phone: SelfMedicare nullSelfUnited Healthcare [facility] [id number] Rebeka Id: [id number] [address] [facility] [address] Home Phone: [employer] [facility] [id number] Rebeka Id: [id number] [address] [facility] [address] Home Phone: Self Encounters Encounter Location(s) Arrival/Admit Date Discharge/Departure Date Discharge/Departure Disposition Provider(s) Departed Clinical -Pet Scan March 22, 2025 10:15am March 22, 2025 10:16am Discharged to home care or self care (routine discharge) Senthil Caldera DO
--- OUTSIDE RECORDS SUMMARY | 2025-03-24 12:46 | XMS_ITS | Continuity of Care Document ---
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 tgelakQ92.411 09/13/2021ctiveEssential (primary) yptuoxesdhijO8072/ctiveAnxiety disorder, geooixbqxluU02.910ctiveTinea yugkdizK91.1053Active Difficulty in walking, not elsewhere dcnuzbuseqQ53.209ctiveVitamin D deficiency, dzeuhzhbosrF08.909ctiveInsomnia, eeyqveqfunqL09.00 01/22/2023ctiveMuscle weakness (generalized)M62.8109ctiveCognitive communication mkuygbfO92.54357ctivePersonal history of malignant neoplasm of vpkjngC75.309/ctivePure hypercholesterolemia, unspecified E78.0002/2ActiveIron deficiency anemia, zxlzklizexgO97.902ctive Chronic pain fzhlesceO77.401ctiveLimitation of activities due to levpuuclcbV87.614ActiveUrinary tract infection, site not sgvndyvniS34.0 12/24/2022ctiveType 2 diabetes mellitus with diabetic chronic kidney disease E11.22055ActiveEncounter for wswtvvkiucgfR8350/5ActiveHyperkalemia E87.5105Active Results Test Result Date/Time Value / Unit Interp. Refere nce Range Blood chemistry[235112582] Glucose [Mass/volume] in Serum or Plasma [2345-7] [...] 6 hours as needed for pain (2 UVFO=9651MO) ORAL 1.0 6.0 h 05/16/2023 Activealprazolam 0.5 [...] PRN, FOR FEVER oral1.06.0 4ActiveTussin CF Cough-Cold (zucdapiqweeiv-rd-jtkglykycif) 5-10-100 mg/5 mL liquid (Tussin CF Cough-Cold (scrkhsepqsbyd-nq-oqgwqjxketr)) 10ml, oral, Every 4 Hours - PRN, cough/ congestionoral1.04.0 4Active Mucinex DM (dextromethorphan-guaifenesin) 30-600 mg tablet extended release 12 hr (Mucinex DM (dextromethorphan-guaifenesin))1 tablet, oral, Twice A Day, cough/congestionoral1.012.0 h01//248682/5ActivePro-Stat AWC (amino acids-protein hydrolys) 17-100 gram-kcal/30 mL liquid (Pro-Stat AWC (amino acids -protein hydrolys))30 ml, oral, Twice A Dayoral1.012.0 h05ActiveSpikevax 9633-5109(12y up)(PF) (covid vac 24-25(12up)(mod)(pf)) 50 mcg/0.5 mL syringe (Spikevax 8495-2670(12y up)(PF) (covid vac 24-25(12up)(mod)(pf)))0.5ml, intramuscular, Once - One Timeintramuscular1.004//240963/5Active buspirone 5 mg tablet (buspirone)5 mg, oral, Twice A Dayoral1.012.0 h009/15/2024 Anxiety disorder, unspecifiedActivesimvastatin 20 mg tablet (simvastatin)1 tablet, oral, Once A Day, hyperlipidemiaoral1.01.0 d05ActiveSPS (with sorbitol) (sodium polystyrene sulf-sorbtl) 15-20 gram/60 mL suspension (SPS (with sorbitol) (sodium polystyrene sulf-sorbtl))Give 30mL, oral, STAT - Immediately, For elevated K+ Laboratory results.oral1.009//311020/05/2024 Muscle weakness (generalized)ActiveFluzone High-Dose (PF) (flu vacc np3114-58(65yr up)-pf) 180 mcg/0.5 mL syringe (Fluzone High-Dose (PF) (flu vacc bm5940-13(65yr up)-pf))0.5ml, intramuscular, Once - One Time intramuscular1.010/7532025Activesodium polystyrene sulfonate 15 gram powder (sodium polystyrene sulfonate)30 grams, oral, Once - One Timeoral1.0 /10/2024HyperkalemiaActiveKionex (with sorbitol) (sodium polystyrene sulf-sorbtl) 15-20 gram/60 mL suspension (Kionex (with sorbitol) (sodium polystyrene sulf-sorbtl))15grams, oral, Once - One Timeoral1.0105ActiveKionex (with sorbitol) (sodium polystyrene sulf-sorbtl) 15-20 gram/60 mL suspension (Kionex (with sorbitol) (sodium polystyrene sulf-sorbtl)) 30 grams, oral, Once - One Timeoral1.01051HyperkalemiaActive Mnexspike 0656-7504 (PF) (covid vac 25-26(12up)(mod)(pf)) 10 mcg/0.2 mL syringe (Mnexspike 6627-2576 (PF) (covid vac 25-26(12up)(mod)(pf)))0.2 mL, intramuscular, Once [...] in the morning. Indication for use: Constipationoral1.01.0 d1515Activesodium polystyrene sulfonate 15 gram powder (sodium polystyrene sulfonate)45 gram, oral, Once - One Timeoral 1.5104/25/2024HyperkalemiaActiveEnemeez (docusate sodium) 283 mg/5 mL enema (Enemeez (docusate sodium))1 enema, rectal, Once A Day - PRN, Step 3: If no BM by morning of day 4, administer 1 Enemeez MicroEnema in the morning. Indication for use: ConstipationStep 4: If no BM within 1 hour of administering Enemeez, contact provider.rectal1.01.0 d15ActiveMiralax (polyethylene glycol 3350) 17 gram/dose powder (Miralax (polyethylene glycol 3350))17gm (1 capful), oral, Once A Day - PRN, Step 1: If no BM by Day 2, Mix 17gm (1 capful) in 4-8oz beverage of choice in the morning. Indication for use: Constipationoral 1.01.0 d15Activesodium polystyrene sulfonate 15 gram powder (sodium polystyrene sulfonate)30 gram, oral, Once - One Time, hyperkalemiaoral1.0 5Active Vital Signs Date Vital Result Comment 03/24/2024 07:42 AM Temperature (8310-5) 98 [degF] 03/23/2024 09:18 PMTemperature (8310-5)98.3 [degF]Oxygen Saturation (97389-5)96 %Respiratory Rate (9279-1)18 /minHeart Rate (8867-4)80 /minBlood Pressure Systolic (8480-6)126 mm[Hg]Blood Pressure Diastolic (8462-4)80 mm[Hg]03/23/2024 07:53 AMTemperature (8310-5)98.3 [degF]03/22/2024 08:20 AMTemperature (8310-5) 98.3 [degF]03/21/2024 12:49 PMBody Weight (32041-6)233 [lb_av]Body Mass Index (92558-3)37.04 kg/m203/20/2024 10:18 AMBody Weight (92080-9)234 [lb_av]Body Mass Index (30677-6)37.2 kg/m203/19/2024 11:41 AMBody Weight (84402-8)237 [lb_av] Body Mass Index (92096-6)37.68 kg/m203/18/2024 12:16 PMBody Weight (42541-5)224 [lb_av]Body Mass Index (10820-9)35.61 kg/m202/21/2024 01:32 PMBody Weight (99048-2)225.5 [lb_av]Body Mass Index (08012-9)35.85 kg/m201/30/2024 12:23 AM Temperature (8310-5)98 [degF]01/29/2024 06:44 PMTemperature (8310-5)98.1 [degF] 01/29/2024 08:44 AMTemperature (8310-5)98.2 [degF]01/29/2024 12:52 AMTemperature (8310-5)97.5 [degF]01/28/2024 09:29 PMTemperature (8310-5)98.2 [degF]01/28/2024 03:46 PMBody Weight (28391-6)223 [lb_av]Body Mass Index (27696-7)35.45 kg/m2 01/28/2024 11:43 AMTemperature (8310-5)98.3 [degF]01/22/2024 10:42 PMOxygen Saturation (69495-9)98 %Respiratory Rate (9279-1)16 /minHeart Rate (8867-4)67 /minBlood Pressure Systolic (8480-6)155 mm[Hg]Blood Pressure Diastolic (8462-4) 68 mm[Hg]12/22/2023 12:49 AMOxygen Saturation (24339-6)98 %Respiratory Rate (9279-1)18 /minHeart Rate (8867-4)63 /minBlood Pressure Systolic (8480-6)140 mm[Hg]Blood Pressure Diastolic (8462-4)96 mm[Hg]11/21/2023 10:48 PMOxygen Saturation (65825-8)96 %Respiratory Rate (9279-1)16 /minHeart Rate (8867-4)85 /minBlood Pressure Systolic (8480-6)126 mm[Hg]Blood Pressure Diastolic (8462-4) 81 mm[Hg]10/25/2023 10:20 PMOxygen Saturation (90776-4)97 %Respiratory Rate (9279-1)16 /minHeart Rate (8867-4)70 /minBlood Pressure Systolic (8480-6)159 mm[Hg]Blood Pressure Diastolic (8462-4)72 mm[Hg]09/26/2023 12:19 PMOxygen Saturation (84780-3)96 %Respiratory Rate (9279-1)16 /minHeart Rate (8867-4)80 /minBlood Pressure Systolic (8480-6)119 mm[Hg]Blood Pressure Diastolic (8462-4) 54 mm[Hg]09/17/2023 10:10 PMOxygen Saturation (93926-6)96 %Respiratory Rate (9279-1)16 /minHeart Rate (8867-4)72 /minBlood Pressure Systolic (8480-6)126 mm[Hg]Blood Pressure Diastolic (8462-4)71 mm[Hg]09/16/2023 09:30 PMOxygen Saturation (47300-3)97 %Respiratory Rate (9279-1)16 /minHeart Rate (8867-4)80 /minBlood Pressure Systolic (8480-6)122 mm[Hg]Blood Pressure Diastolic (8462-4) 70 mm[Hg]09/13/2023 01:24 PMOxygen Saturation (10979-8)96 %Respiratory Rate (9279-1)18 /minHeart Rate (8867-4)76 /minBlood Pressure Systolic (8480-6)124 mm[Hg]Blood Pressure Diastolic (8462-4)77 mm[Hg]09/12/2023 11:43 PMRespiratory Rate (9279-1)14 /minHeart Rate (8867-4)76 /minBlood Pressure Systolic (8480-6) 132 mm[Hg]Blood Pressure Diastolic (8462-4)78 mm[Hg]09/08/2023 09:33 AMOxygen Saturation (48538-9)96 %12/23/2022 12:00 AMBody Height (8302-2)66.5 [in_us] 04/03/2024 02:48 PMBody Weight (94763-3)235.2 [lb_av]Body Mass Index (65867-1) 37.39 kg/m204/04/2024 01:02 PMBody Weight (11217-5)234.4 [lb_av]Body Mass Index (99869-2)37.26 kg/m204/16/2024 10:14 AMTemperature (8310-5)98.2 [degF]Oxygen Saturation (55441-1)98 %04/22/2024 07:50 AMTemperature (8310-5)97.9 [degF]Oxygen Saturation (06518-0)96 %Respiratory Rate (9279-1)18 /minHeart Rate (8867-4)71 /minBlood Pressure Systolic (8480-6)124 mm[Hg]Blood Pressure Diastolic (8462-4) 80 mm[Hg]04/28/2024 02:50 PMBody Weight (51147-6)224 [lb_av]Body Mass Index (85900-9)35.61 kg/m205/23/2024 10:09 PMTemperature (8310-5)98.1 [degF]Oxygen Saturation (01415-4)98 %Respiratory Rate (9279-1)16 /minHeart Rate (8867-4)78 /minBlood Pressure Systolic (8480-6)110 mm[Hg]Blood Pressure Diastolic (8462-4) 72 mm[Hg]05/24/2024 10:24 AMBody Weight (77323-8)230 [lb_av]Body Mass Index (70266-8)36.56 kg/m206/20/2024 11:01 AMBody Weight (93107-8)230 [lb_av]Body Mass Index (11390-9)36.56 kg/m206/22/2024 01:16 AMTemperature (8310-5)98.2 [degF] Oxygen Saturation (05971-3)98 %Heart Rate (8867-4)81 /minBlood Pressure Systolic (8480-6)122 mm[Hg]Blood Pressure Diastolic (8462-4)78 mm[Hg]06/25/2024 02:02 PM Respiratory Rate (9279-1)20 /min07/24/2024 06:26 PMTemperature (8310-5)98.2 [degF]Oxygen Saturation (94040-6)99 %Respiratory Rate (9279-1)16 /minHeart Rate (8867-4)95 /minBlood Pressure Systolic (8480-6)130 mm[Hg]Blood Pressure Diastolic (8462-4)74 mm[Hg]07/27/2024 02:19 PMBody Weight (82567-0)240 [lb_av] Body Mass Index (24724-9)38.15 kg/m208/23/2024 07:04 PMTemperature (8310-5)98.2 [degF]Oxygen Saturation (80105-4)98 %Respiratory Rate (9279-1)16 /minHeart Rate (8867-4)72 /minBlood Pressure Systolic (8480-6)130 mm[Hg]Blood Pressure Diastolic (8462-4)80 mm[Hg]11/21/2024 06:55 PMTemperature (8310-5)98.1 [degF] Oxygen Saturation (16927-2)98 %Respiratory Rate (9279-1)16 /minHeart Rate (8867-4)78 /minBlood Pressure Systolic (8480-6)117 mm[Hg]Blood Pressure Diastolic (8462-4)60 mm[Hg]10/25/2024 12:02 PMTemperature (8310-5)98.2 [degF] Oxygen Saturation (18095-7)100 %Respiratory Rate (9279-1)18 /minHeart Rate (8867-4)72 /minBlood Pressure Systolic (8480-6)123 mm[Hg]Blood Pressure Diastolic (8462-4)93 mm[Hg]10/13/2024 09:51 AMTemperature (8310-5)98 [degF] 08/25/2024 05:12 PMTemperature (8310-5)98.3 [degF]Respiratory Rate (9279-1)18 /minHeart Rate (8867-4)75 /minBlood Pressure Systolic (8480-6)158 mm[Hg]Blood Pressure Diastolic (8462-4)98 mm[Hg]11/21/2024 02:58 PMBody Weight (84622-0) 242.5 [lb_av]Body Mass Index (75455-6)38.55 kg/m209 02:42 PMBody Weight (09907-3)245 [lb_av]Body Mass Index (60238-5)38.95 kg/m207 03:13 PMBody Weight (68504-7)241 [lb_av]Body Mass Index (95596-2)38.31 kg/m206 04:43 PMTemperature (8310-5)98.1 [degF]Oxygen Saturation (65549-9)97 %Respiratory Rate (9279-1)18 /minHeart Rate (8867-4)76 /minBlood Pressure Systolic (8480-6)147 mm[Hg]Blood Pressure Diastolic (8462-4)70 mm[Hg]12/28/2024 06:04 PMTemperature (8310-5)98.1 [degF]Oxygen Saturation (94219-3)99 %Respiratory Rate (9279-1)16 /minHeart Rate (8867-4)84 /minBlood Pressure Systolic (8480-6)102 mm[Hg]Blood Pressure Diastolic (8462-4)57 mm[Hg]01/21/2025 01:38 PMTemperature (8310-5)97.6 [degF]Respiratory Rate (9279-1)18 /minHeart Rate (8867-4)72 /minBlood Pressure Systolic (8480-6)130 mm[Hg]Blood Pressure Diastolic (8462-4)58 mm[Hg]01/21/2025 02:25 PMBody Weight (08685-6)253 [lb_av]Body Mass Index (82047-1)40.22 kg/m2 01/25/2025 02:07 PMTemperature (8310-5)98.1 [degF]01/25/2025 04:02 PMTemperature (8310-5)98.1 [degF]01/26/2025 05:15 AMTemperature (8310-5)97.9 [degF]01/26/2025 08:42 AMTemperature (8310-5)97.6 [degF]01/26/2025 06:33 PMTemperature (8310-5) 97.2 [degF]01/27/2025 06:41 AMTemperature (8310-5)97.6 [degF]01/27/2025 08:45 AM Temperature (8310-5)98 [degF]01/27/2025 04:06 PMTemperature (8310-5)98.2 [degF] 01/28/2025 02:21 AMTemperature (8310-5)98 [degF]01/28/2025 08:33 AMTemperature (8310-5)98.2 [degF]02/15/2025 12:12 PMTemperature (8310-5)98 [degF]02/23/2025 02:41 PMBody Weight (70013-1)248.5 [lb_av]Body Mass Index (05879-2)39.5 kg/m2 03/23/2025 03:08 PMBody Weight (64581-9)250 [lb_av]Body Mass Index (18947-2) 39.74 kg/m2 Social History No smoking Hx information available Encounters Type CPT Code Date Location Provider Indication s encounter report 12/23/2022 12:00 Rodney Rodriguez MD01 Advance Directives Directive Description Verification Date Supporting Document(s) Other Directive
--- OUTSIDE RECORDS SUMMARY | 2025-03-24 12:46 | XMS_ITS | Clinical Summary ---
Author Organization [facility] Address [address] [address] Care Team Providers Care Setup Operator Name Role Phone Unallocated, Noms Provider Primary Care Provi ramone Allergies Active AllergyReactionsCriticalityNoted DateCommentsPenicillin G012/15/2021 Other Reaction(s): Unknown PenicillinsShortness of breath,UnhvrqcQvhl75/26/2022ulfa AntibioticsShortness of rpjplpDeyq23/31/2023 Medications MedicationSigDispense QuantityRefillsLast FilledStart DateEnd DateStatus ribociclib [...] hours if needed for severe pain.12/17/2022 Active traMADol (Ultram) 50 MG tablet Indications:Chronic pain syndromeTake 1 tablet (50 mg) by mouth every 6 (six) hours if needed for severe pain 120 tablet 5Active Active Problems ProblemNoted DateDiagnosed DateAxillary hcdcwvcdyh11/05/2023reast cancer 10/24/2022HTN (hypertension)10/24/2022Malignant neoplasm of upper-outer quadrant of female rilavg6010/24/2022Malignant tumor of colon10/24/2022Mass of upper outer quadrant of right mabisy8510/24/2022MI 36.0-36.9,adult10/24/20224531Bjxujid21/05/2023 Usaawaeqhzfwnyqqbi32/05/4409Ueewabdrmjuwf86/31/2023ain in left toe(s)09/19/2022 Pain in right toe(s)09/19/2022Malignant neoplasm of upper-outer quadrant of right female yxbxqi5709/13/2021lass 1 rfotwcb9009/13/2021ure hypercholesterolemia 06/12/2021Type 2 diabetes mellitus without rcxqcgorfkzcu49/02/2017H/O high risk medication hjarptmub06/28/2015Chronic edema03/19/2015Essential hypertension 03/19/2015Diabetes ejhcyryc32/19/2015 Encounters DateTypeDepartmentCare UvcdMnqtyodjdvn93/14/2025Telephone [facility] [address] [facility] [address] [place] [address] Emmie Billings, SHEEBA 5Clinisync Result Encounter [facility] External Department Unsolicited Mary Rodriguez MD 5Clinisync Result Encounter [facility] External Department Unsolicited Mary Rodriguez MD from Last 3 Months Immunizations ImmunizationAdministration DatesNext DueInfluenza, High Dose Seasonal, Preservative Free05/22/2019,03/19/2018,04/12/2017Influenza, High-dose Seasonal, Quadrivalent, Preservative Free1Pneumococcal Conjugate PCV 13106/13/2016 Social History Tobacco UseTypesPacks/DayYears UsedDateSmoking Tobacco: NeverSmokeless Tobacco: Never Tobacco Cessation:Counseling Given: Not Answered PHQ-2AnswerDate RecordedPatient Health Questionnaire-2 Xolua0533 CommentsUnknownSex and Gender InformationValueDate RecordedSex Assigned at Not on fileLegal GloJpwtkj48/15/2023 7:27 PM EDTGender IdentityNot on fileSexual OrientationNot on file Last Filed Vital Signs Vital SignReadingTime TakenCommentsBlood Bgjvsqwh656/7807 1:39 PM EDT Vkzrp301010/24/2022 1:39 PM PFHBzqxnedcypb56.3 ??C (97.3 ??F)10/24/2022 1:39 PM EDTRespiratory Rate--Oxygen Dqnuhwogto21%10/24/2022 1:39 PM EDTInhaled Oxygen Concentration--Wknacz70.7 kg (189 lb)10/24/2022 1:39 PM TXVFuutop014.2 cm (5' 7 )10/24/2022 1:39 PM EDTBody Mass Index29.607 1:39 PM EDT Plan of Treatment Health MaintenanceDue DateLast DoneCommentsCT Gbgjzkxbvcss50/19/1950FIT-DNA 1949FIT1949FOBT1949 2893Xdjonbcfcapae94/19/1950Diabetes: Retinopathy Jjlxhzrhn50/19/1960Diabetes: Urine Protein Fwndneykd78/19/1969 Diabetes: Hemoglobin A1C/08/2022, 06/22/2022, 12/15/2021, Additional history existsCOVID-19 Vaccine ( season)/, 01/18/2021, 06/29/2020, Additional history existsInfluenza Vaccine (#1) /11/2023, 02/13/2021, 05/22/2019, Additional history exists Skzcvwrxrbg67Colorectal Cancer Ifwffvogu84/20/2030Mammogram Sdnevrwskkjf93/10/2022, 04/10/2020Pneumococcal Vaccine: 65+ YearsCompleted 01/10/2023, 04/12/2017 Procedures Procedure NamePriorityDate/TimeAssociated DiagnosisCommentsALL POTASSIUMRoutine 02/24/2025 6:40 AM EST ALL SPTIMMXKWRlnnkvc08/08/2025 11:00 AM EDT POCT GLYCATED HEMOGLOBIN, JUHIHIjouqfi28/05/2023 2:01 PM EDT Type 2 diabetes mellitus without complication, unspecified whether superintendent terminal insulin use (HCC) BI MAMMOGRAM DIAGNOSTIC TOMOSYNTHESIS ZWOQAFIMHAjwayyn61/10/2022 Disorder of breast, unspecified ASKTDIWLUHPHjyhvig43/20/2020 12:00 PM EST from Last 3 Months or Most Recently Relevant to Health Maintenance Results * (ABNORMAL) ALL POTASSIUM (02/24/2025 6:40 AM EST) Only the most recent of2 resultswithin the time period is included. ComponentValueRef RangeTest MethodAnalysis TimePerformed AtPathologist Signature POTASSIUM5.3(H)3.5 - 5.1 mmol/LTBHSpecimen (Source)Anatomical Location / LateralityCollection Method / VolumeCollection TimeReceived Time02/24/2025 6:40 AM EST02/24/2025 7:10 AM EST Narrative [facility] - 02/24/2025 8:42 AM EST Authorizing ProviderResult TypeResult StatusMary Rodriguez MDCLINISYNCFinal Result Performing OrganizationAddressCity/State/ZIP CodePhone Number [facility] TB * (ABNORMAL) POCT Glycated hemoglobin, total (10/24/2022 2:01 PM EDT)Component ValueRef RangeTest MethodAnalysis TimePerformed AtPathologist Signature Hemoglobin A1C6.2Specimen (Source)Anatomical Location / LateralityCollection Method / VolumeCollection TimeReceived GlaiXosse90/05/2023 2:01 PM EDT Narrative Authorizing ProviderResult TypeResult StatusPePatel MDPOINT OF CARE TEST ENTER/EDIT ORDERABLESFinal Result * Bilateral diagnostic mammogram with tomosynthesis (06/29/2021)Anatomical RegionLateralityModalityBreastBilateralMammographySpecimen (Source)Anatomical Location / LateralityCollection Method / VolumeCollection TimeReceived Time Narrative 06/29/2021 12:00 AM EST PERFORMED AT [facility] LOCATION:[place] [address] Exam Date/Time: 06/29/2021 13:01 EST Reason for [...] IS VERY IMPORTANT TO YOUR HEALTH. ??THE [place] GUIDELINES RECOMMEND THAT WOMEN 40 [...] ??Linda Hernandes Transcribed by: ??DP ? Technologist: ??[facility] Assessment: BI-RADS Category ??5-Highly suggestive of malignancy appropriate action should be taken Recommendation: ??Highly suggestive of malignancy - take appropriate action Procedure Note CONVERSION, GENERIC - 10/26/2022 PERFORMED AT [facility] LOCATION:[place] [address] Exam Date/Time: 06/29/2021 13:01 EST Reason for [...] IS VERY IMPORTANT TO YOUR HEALTH. THE [place] GUIDELINES RECOMMEND THAT WOMEN 40 [...] FINAL REPORT Dictated: 06/29/2021 3:16 pm [place]. Signed (Electronic Signature): 06/29/2021 3:16 pm Signed by: Linda Hernandes Transcribed by: TOLU Technologist: ZENA Assessment: BI-RADS Category 5-Highly suggestive of malignancy appropriate action should be taken Recommendation: Highly suggestive of malignancy - take appropriateaction Authorizing ProviderResult TypeResult StatusPeter Shane TAVAREZ BI PROCEDURES Final Result * Colonoscopy (04/10/2020 12:00 PM EST)Anatomical RegionLateralityModality EndoscopySpecimen (Source)Anatomical Location / LateralityCollection Method / VolumeCollection TimeReceived Time04/10/2020 12:00 PM EST Narrative 04/10/2020 12:00 PM EST PERFORMED AT [facility] LOCATION:[id number] Refused Procedure Note CONVERSION, GENERIC - 09/05/2022 PERFORMED AT [facility] LOCATION:[id number] Refused Authorizing ProviderResult TypeResult StatusPeter Shane Askew MDENDOSCOPY PROCEDURE ORDERABLESFinal Result from Last 3 Months or Most Recently Relevant to Health Maintenance [place] [address] Care Teams Team MemberRelationshipSpecialtyStart DateEnd Date Unallocated, Noms Provider, [address] [place] [address] PCP - GeneralFamily Medicine08/14/23
--- OUTSIDE RECORDS SUMMARY | 2025-03-24 12:46 | XMS_ITS | Continuity of Care Document ---
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 nwedchQ11.411 09/13/2021ctiveEssential (primary) vfwjfqwsizjdM2639/ctiveAnxiety disorder, thnqyrntslgG25.910ctiveTinea emgihveL28.1053Active Difficulty in walking, not elsewhere pmlopfqwxwD89.209ctiveVitamin D deficiency, zkdnlrmajznW14.909ctiveInsomnia, roeuuxghstjM81.00 01/22/2023ctiveMuscle weakness (generalized)M62.8109ctiveCognitive communication qvatebbP04.31304ctivePersonal history of malignant neoplasm of hrovsuT75.309/ctivePure hypercholesterolemia, unspecified E78.0002/2ActiveIron deficiency anemia, wkdrgginzfbD69.902ctive Chronic pain irboydnzA00.401ctiveLimitation of activities due to hcgnwbffudJ49.614ActiveUrinary tract infection, site not trprhbzylX69.0 12/24/2022ctiveType 2 diabetes mellitus with diabetic chronic kidney disease E11.22055ActiveEncounter for ansqyznwhxmjP6143/5ActiveHyperkalemia E87.5105Active Results Test Result Date/Time Value / Unit Interp. Refere nce Range Blood chemistry[695114161] Glucose [Mass/volume] in Serum or Plasma [2345-7] [...] 6 hours as needed for pain (2 SXMF=4027FP) ORAL 1.0 6.0 h 05/16/2023 Activealprazolam 0.5 [...] PRN, FOR FEVER oral1.06.0 4ActiveTussin CF Cough-Cold (mdvgwhmlaiyxk-jx-icigpkduujz) 5-10-100 mg/5 mL liquid (Tussin CF Cough-Cold (zbwxrakwnsrxl-xt-ixbbvwvkqcx)) 10ml, oral, Every 4 Hours - PRN, cough/ congestionoral1.04.0 4Active Mucinex DM (dextromethorphan-guaifenesin) 30-600 mg tablet extended release 12 hr (Mucinex DM (dextromethorphan-guaifenesin))1 tablet, oral, Twice A Day, cough/congestionoral1.012.0 h01//186398/5ActivePro-Stat AWC (amino acids-protein hydrolys) 17-100 gram-kcal/30 mL liquid (Pro-Stat AWC (amino acids -protein hydrolys))30 ml, oral, Twice A Dayoral1.012.0 h05ActiveSpikevax 9417-3232(12y up)(PF) (covid vac 24-25(12up)(mod)(pf)) 50 mcg/0.5 mL syringe (Spikevax 7417-0918(12y up)(PF) (covid vac 24-25(12up)(mod)(pf)))0.5ml, intramuscular, Once - One Timeintramuscular1.004//863154/5Active buspirone 5 mg tablet (buspirone)5 mg, oral, Twice A Dayoral1.012.0 h009/15/2024 Anxiety disorder, unspecifiedActivesimvastatin 20 mg tablet (simvastatin)1 tablet, oral, Once A Day, hyperlipidemiaoral1.01.0 d05ActiveSPS (with sorbitol) (sodium polystyrene sulf-sorbtl) 15-20 gram/60 mL suspension (SPS (with sorbitol) (sodium polystyrene sulf-sorbtl))Give 30mL, oral, STAT - Immediately, For elevated K+ Laboratory results.oral1.009//764508/05/2024 Muscle weakness (generalized)ActiveFluzone High-Dose (PF) (flu vacc wf1472-04(65yr up)-pf) 180 mcg/0.5 mL syringe (Fluzone High-Dose (PF) (flu vacc zr0954-50(65yr up)-pf))0.5ml, intramuscular, Once - One Time intramuscular1.010/7854715Activesodium polystyrene sulfonate 15 gram powder (sodium polystyrene sulfonate)30 grams, oral, Once - One Timeoral1.0 /10/2024HyperkalemiaActiveKionex (with sorbitol) (sodium polystyrene sulf-sorbtl) 15-20 gram/60 mL suspension (Kionex (with sorbitol) (sodium polystyrene sulf-sorbtl))15grams, oral, Once - One Timeoral1.0105ActiveKionex (with sorbitol) (sodium polystyrene sulf-sorbtl) 15-20 gram/60 mL suspension (Kionex (with sorbitol) (sodium polystyrene sulf-sorbtl)) 30 grams, oral, Once - One Timeoral1.01051HyperkalemiaActive Mnexspike 9968-7132 (PF) (covid vac 25-26(12up)(mod)(pf)) 10 mcg/0.2 mL syringe (Mnexspike 9344-0073 (PF) (covid vac 25-26(12up)(mod)(pf)))0.2 mL, intramuscular, Once [...] [degF] 03/23/2024 09:18 PMTemperature (8310-5)98.3 [degF]Oxygen Saturation (31320-2)96 %Respiratory Rate (9279-1)18 /minHeart Rate (8867-4)80 /minBlood Pressure Systolic (8480-6)126 mm[Hg]Blood Pressure Diastolic (8462-4)80 mm[Hg]03/23/2024 07:53 AMTemperature (8310-5)98.3 [degF]03/22/2024 08:20 AMTemperature (8310-5) 98.3 [degF]03/21/2024 12:49 PMBody Weight (84055-2)233 [lb_av]Body Mass Index (51101-1)37.04 kg/m203/20/2024 10:18 AMBody Weight (36301-8)234 [lb_av]Body Mass Index (06641-6)37.2 kg/m203/19/2024 11:41 AMBody Weight (89764-2)237 [lb_av] Body Mass Index (12493-3)37.68 kg/m203/18/2024 12:16 PMBody Weight (88407-5)224 [lb_av]Body Mass Index (04797-5)35.61 kg/m202/21/2024 01:32 PMBody Weight (17766-9)225.5 [lb_av]Body Mass Index (07877-9)35.85 kg/m201/30/2024 12:23 AM Temperature (8310-5)98 [degF]01/29/2024 06:44 PMTemperature (8310-5)98.1 [degF] 01/29/2024 08:44 AMTemperature (8310-5)98.2 [degF]01/29/2024 12:52 AMTemperature (8310-5)97.5 [degF]01/28/2024 09:29 PMTemperature (8310-5)98.2 [degF]01/28/2024 03:46 PMBody Weight (54928-7)223 [lb_av]Body Mass Index (37512-8)35.45 kg/m2 01/28/2024 11:43 AMTemperature (8310-5)98.3 [degF]01/22/2024 10:42 PMOxygen Saturation (88800-5)98 %Respiratory Rate (9279-1)16 /minHeart Rate (8867-4)67 /minBlood Pressure Systolic (8480-6)155 mm[Hg]Blood Pressure Diastolic (8462-4) 68 mm[Hg]12/22/2023 12:49 AMOxygen Saturation (92624-5)98 %Respiratory Rate (9279-1)18 /minHeart Rate (8867-4)63 /minBlood Pressure Systolic (8480-6)140 mm[Hg]Blood Pressure Diastolic (8462-4)96 mm[Hg]11/21/2023 10:48 PMOxygen Saturation (97131-9)96 %Respiratory Rate (9279-1)16 /minHeart Rate (8867-4)85 /minBlood Pressure Systolic (8480-6)126 mm[Hg]Blood Pressure Diastolic (8462-4) 81 mm[Hg]10/25/2023 10:20 PMOxygen Saturation (23865-3)97 %Respiratory Rate (9279-1)16 /minHeart Rate (8867-4)70 /minBlood Pressure Systolic (8480-6)159 mm[Hg]Blood Pressure Diastolic (8462-4)72 mm[Hg]09/26/2023 12:19 PMOxygen Saturation (34262-8)96 %Respiratory Rate (9279-1)16 /minHeart Rate (8867-4)80 /minBlood Pressure Systolic (8480-6)119 mm[Hg]Blood Pressure Diastolic (8462-4) 54 mm[Hg]09/17/2023 10:10 PMOxygen Saturation (27219-2)96 %Respiratory Rate (9279-1)16 /minHeart Rate (8867-4)72 /minBlood Pressure Systolic (8480-6)126 mm[Hg]Blood Pressure Diastolic (8462-4)71 mm[Hg]09/16/2023 09:30 PMOxygen Saturation (19613-2)97 %Respiratory Rate (9279-1)16 /minHeart Rate (8867-4)80 /minBlood Pressure Systolic (8480-6)122 mm[Hg]Blood Pressure Diastolic (8462-4) 70 mm[Hg]09/13/2023 01:24 PMOxygen Saturation (70958-1)96 %Respiratory Rate (9279-1)18 /minHeart Rate (8867-4)76 /minBlood Pressure Systolic (8480-6)124 mm[Hg]Blood Pressure Diastolic (8462-4)77 mm[Hg]09/12/2023 11:43 PMRespiratory Rate (9279-1)14 /minHeart Rate (8867-4)76 /minBlood Pressure Systolic (8480-6) 132 mm[Hg]Blood Pressure Diastolic (8462-4)78 mm[Hg]09/08/2023 09:33 AMOxygen Saturation (62102-8)96 %12/23/2022 12:00 AMBody Height (8302-2)66.5 [in_us] 04/03/2024 02:48 PMBody Weight (47401-8)235.2 [lb_av]Body Mass Index (36979-8) 37.39 kg/m204/04/2024 01:02 PMBody Weight (57810-7)234.4 [lb_av]Body Mass Index (03960-1)37.26 kg/m204/16/2024 10:14 AMTemperature (8310-5)98.2 [degF]Oxygen Saturation (80720-9)98 %04/22/2024 07:50 AMTemperature (8310-5)97.9 [degF]Oxygen Saturation (93325-4)96 %Respiratory Rate (9279-1)18 /minHeart Rate (8867-4)71 /minBlood Pressure Systolic (8480-6)124 mm[Hg]Blood Pressure Diastolic (8462-4) 80 mm[Hg]04/28/2024 02:50 PMBody Weight (50012-4)224 [lb_av]Body Mass Index (78525-5)35.61 kg/m205/23/2024 10:09 PMTemperature (8310-5)98.1 [degF]Oxygen Saturation (18072-7)98 %Respiratory Rate (9279-1)16 /minHeart Rate (8867-4)78 /minBlood Pressure Systolic (8480-6)110 mm[Hg]Blood Pressure Diastolic (8462-4) 72 mm[Hg]05/24/2024 10:24 AMBody Weight (64425-8)230 [lb_av]Body Mass Index (15874-4)36.56 kg/m206/20/2024 11:01 AMBody Weight (38136-5)230 [lb_av]Body Mass Index (60986-8)36.56 kg/m206/22/2024 01:16 AMTemperature (8310-5)98.2 [degF] Oxygen Saturation (84657-7)98 %Heart Rate (8867-4)81 /minBlood Pressure Systolic (8480-6)122 mm[Hg]Blood Pressure Diastolic (8462-4)78 mm[Hg]06/25/2024 02:02 PM Respiratory Rate (9279-1)20 /min07/24/2024 06:26 PMTemperature (8310-5)98.2 [degF]Oxygen Saturation (71253-1)99 %Respiratory Rate (9279-1)16 /minHeart Rate (8867-4)95 /minBlood Pressure Systolic (8480-6)130 mm[Hg]Blood Pressure Diastolic (8462-4)74 mm[Hg]07/27/2024 02:19 PMBody Weight (87560-7)240 [lb_av] Body Mass Index (88450-2)38.15 kg/m208/23/2024 07:04 PMTemperature (8310-5)98.2 [degF]Oxygen Saturation (37119-7)98 %Respiratory Rate (9279-1)16 /minHeart Rate (8867-4)72 /minBlood Pressure Systolic (8480-6)130 mm[Hg]Blood Pressure Diastolic (8462-4)80 mm[Hg]11/21/2024 06:55 PMTemperature (8310-5)98.1 [degF] Oxygen Saturation (50186-8)98 %Respiratory Rate (9279-1)16 /minHeart Rate (8867-4)78 /minBlood Pressure Systolic (8480-6)117 mm[Hg]Blood Pressure Diastolic (8462-4)60 mm[Hg]10/25/2024 12:02 PMTemperature (8310-5)98.2 [degF] Oxygen Saturation (74420-9)100 %Respiratory Rate (9279-1)18 /minHeart Rate (8867-4)72 /minBlood Pressure Systolic (8480-6)123 mm[Hg]Blood Pressure Diastolic (8462-4)93 mm[Hg]10/13/2024 09:51 AMTemperature (8310-5)98 [degF] 08/25/2024 05:12 PMTemperature (8310-5)98.3 [degF]Respiratory Rate (9279-1)18 /minHeart Rate (8867-4)75 /minBlood Pressure Systolic (8480-6)158 mm[Hg]Blood Pressure Diastolic (8462-4)98 mm[Hg]11/21/2024 02:58 PMBody Weight (45289-9) 242.5 [lb_av]Body Mass Index (49183-3)38.55 kg/m209 02:42 PMBody Weight (42204-6)245 [lb_av]Body Mass Index (73504-1)38.95 kg/m207 03:13 PMBody Weight (61014-6)241 [lb_av]Body Mass Index (76568-7)38.31 kg/m206 04:43 PMTemperature (8310-5)98.1 [degF]Oxygen Saturation (91792-0)97 %Respiratory Rate (9279-1)18 /minHeart Rate (8867-4)76 /minBlood Pressure Systolic (8480-6)147 mm[Hg]Blood Pressure Diastolic (8462-4)70 mm[Hg]12/28/2024 06:04 PMTemperature (8310-5)98.1 [degF]Oxygen Saturation (87956-2)99 %Respiratory Rate (9279-1)16 /minHeart Rate (8867-4)84 /minBlood Pressure Systolic (8480-6)102 mm[Hg]Blood Pressure Diastolic (8462-4)57 mm[Hg]01/21/2025 01:38 PMTemperature (8310-5)97.6 [degF]Respiratory Rate (9279-1)18 /minHeart Rate (8867-4)72 /minBlood Pressure Systolic (8480-6)130 mm[Hg]Blood Pressure Diastolic (8462-4)58 mm[Hg]01/21/2025 02:25 PMBody Weight (12641-4)253 [lb_av]Body Mass Index (68782-6)40.22 kg/m2 01/25/2025 02:07 PMTemperature (8310-5)98.1 [degF]01/25/2025 04:02 PMTemperature (8310-5)98.1 [degF]01/26/2025 05:15 AMTemperature (8310-5)97.9 [degF]01/26/2025 08:42 AMTemperature (8310-5)97.6 [degF]01/26/2025 06:33 PMTemperature (8310-5) 97.2 [degF]01/27/2025 06:41 AMTemperature (8310-5)97.6 [degF]01/27/2025 08:45 AM Temperature (8310-5)98 [degF]01/27/2025 04:06 PMTemperature (8310-5)98.2 [degF] 01/28/2025 02:21 AMTemperature (8310-5)98 [degF]01/28/2025 08:33 AMTemperature (8310-5)98.2 [degF]02/15/2025 12:12 PMTemperature (8310-5)98 [degF]02/23/2025 02:41 PMBody Weight (54274-1)248.5 [lb_av]Body Mass Index (33993-3)39.5 kg/m2 03/23/2025 03:08 PMBody Weight (37021-0)250 [lb_av]Body Mass Index (62384-4) 39.74 kg/m2 Social History No smoking Hx information available Encounters Type CPT Code Date Location Provider Indication s encounter report 12/23/2022 12:00 Rodney Rodriguez MD01 Advance Directives Directive Description Verification Date Supporting Document(s) Other Directive
--- OUTSIDE RECORDS SUMMARY | 2025-03-24 12:46 | XMS_ITS | Clinical Summary ---
Author Organization [facility] Address [address] [place] [address] Phone Care Team Providers Care Floor Sander Name Role Phone Rickey Askew MD Primary Care Prov ider Social History Tobacco UseTypesPacks/DayYears UsedDateSmoking Tobacco: Never Assessed CommentsUnknownSex and Gender InformationValueDate RecordedSex Assigned at Not on fileLegal FpvYjcwgl77/26/2022 11:26 AM ESTGender IdentityNot on file Sexual OrientationNot on file Last Filed Vital Signs Vital SignReadingTime TakenCommentsBlood Fcrrmggx522/6505 1:10 PM EDT Ditht752408/28/2021 1:10 PM MCPMhpoealnuqx09.8 ??C (98.2 ??F)08/28/2021 1:10 PM EDTRespiratory Idym766508/28/2021 1:10 PM EDTOxygen Dzyqhoakmk07%08/28/2021 1:10 PM EDTInhaled Oxygen Concentration--Qfeced60.6 kg (217 lb 6 oz)08/28/2021 1:10 PM NWBViufdv120 cm (5' 2.6 )08/28/2021 1:10 PM EDTBody Mass Rhnfx039808/28/2021 1:10 PM EDT Plan of Treatment Not on file Care Teams Team MemberRelationshipSpecialtyStart DateEnd Date Rickey Askew MD [address] [place] [address] PCP - General1/1/22
--- OUTSIDE RECORDS SUMMARY | 2025-03-24 12:50 | XMS_ITS | CCD ---
Author Organization [facility] Care Team Providers Care Resident Inspector Name Role Phone Rickey Askew Primary Care Physician [phone] Eva Beard Unavailable Unavailable iRckey Askew MD Unavailable Rickey Askew MD Primary Care Provider DO Senthil Caldera II Attending Provider MD Mary Rodriguez Primary Care Provider MD Mary Rodriguez Primary Care Provider [phone] DO Senthil Caldera II Attending Provider Senthil Caldera Attending Unavailable Verenice, Senthil Attending Unavailable Verenice, Senthil Attending Unavailable Senthil Caldera Admitting Unavailable Nohemy DIRECTOR OF VITAL STATISTICS-JOHNNA Moreland Attending UnavailSammy Orosco Attending Unavailable Sammy [...] Mary Rodriguez Primary Care Provider Verenice [facility], DO Ndiaye Attending Provider David Calderaothy Referring Unavailable Adamowicz, Senthil Attending Unavailable Unallocated MD, Noms Provider Primary Care Provi ramone Unallocated MD, Noms Provider Primary Care Provi ramone Mary Rodriguez MD Primary Care Provider [facility] DO, Senthil Attending Provider Mary Rodriguez MD Primary Care Provider [facility] DO, Senthil Attending Provider Adamowicz [facility], Senthil Admitting [facility]enthil Attending Unavai lable [place], [facility] Primary Care Un[facility] Admitting [facility]avai lable [facility] Senthil Attending Unavai lable [place], [facility] Primary Care Un[facility]enthil Admitting Unavai lable Adamowicz [facility], Senthil Attending Unavai lable Jeninfer, [facility] Primary Care Unavailable [facility] Senthil Attending Unavai lable [facility], Senthil Admitting Unavai lable [place], [facility] Primary Care Unavailable Adamowicz, Senhtil Attending Unavailable Adamowicz, Senthil Attending Unavailable Adamowicz, Senthil Attending Unavailable Adamowicz, Senthil Attending Unavailable Adamowicz, Senthil Attending Unavailable Adamowicz, Senthil Attending Unavailable Adamowicz, Senthil Attending Unavailable Adamowicz, Senthil Attending Unavailable Adamowicz, Senthil Attending Unavailable Adamowicz, Senthil Attending Unavailable Adamowicz, Senthil Attending Unavailable Adamowicz, Senthil Attending Unavailable Adamowicz, Senthil Attending Unavailable Adamowicz, Setnhil Attending Unavailable Adamowicz, Senthil Attending Unavailable Allergies Allergy ClassificationReported Allergen(s)Allergy TypeDate of OnsetReaction(s) FacilityBee/Wasp/Ant Venom (1 source)Bee/Wasp/Ant venom; Translations: [Bee Stings][facility]stance [facility] RepositoryPenicillins (antibiotic) (1 source)Penicillins; Translations: [penicillins]Drug AllergySt. [facility] RepositorySulfonamides (antibiotic) (1 source)Sulfonamides (Antibiotic); Translations: [sulfa drugs]Drug Allergy [facility] (20 sources)Bee/Wasp/Ant venom; Translations: [Bee Stings]Drug allergyDyspnea (finding)[facility] (20 sources)Penicillins; Translations: [penicillins]Drug [id number] Dyspnea (finding), Shortness of breath, UnknownOhio[facility] (20 sources)Sulfonamides (Antibiotic); Translations: [sulfa drugs]Drug allergy Dyspnea (finding)[facility] (11 sources)Penicillin GDrug Ijmakdz21-03-2045[facility] (11 sources)Sulfonamides (Antibiotic)Drug Yexmecj10-05-2648Bcnosvotz of breath [facility] Medications Current Medications MedicationDrug Class(es)DatesSig (Normalized)Sig (Original)acetaminophen 500 mg oral tablet (20 sources)Start: 96-49-0857frjr 2 tablets by mouth every six hours acetaminophen 500 mg Tab 1,000 mg = 2 tab(s), Oral, q6hr, Refills(s) 0 Start Date: 11/13/22 Status: Ordered Repeat number: 1anastrozole 1 mg oral tablet (20 sources)Aromatase InhibitorStart: 88-60-4478tubf 1 tablet by mouth once dailyanastrozole 1 mg Tab 1 mg = 1 tab(s), Oral, Daily, # 30 tab(s), Refills(s) 11, called to pharmacy (Rx) Start Date: 10/29/22 Status: Ordered Quantity: 30.0 Unit: tab(s) Repeat number: 12busPIRone hydrochloride 5 mg oral tablet (17 sources)Start: 86-08-8447hvdb 1 tablet by mouth twice dailybusPIRone 5 mg Tab 5 mg = 1 tab(s), Oral, BID, # 270 tab(s), Refills(s) 0 Start Date: 05/01/23 Status: Ordered Quantity: 270.0 Unit: tab(s) Repeat number: 1cephalexin 500 mg oral capsule (2 sources)Cephalosporin AntibacterialStart: 12-19-2022 End: 65-08-2139xxwm 1 capsule by mouth four times dailyKeflex 500 mg Cap 500 mg = 1 cap(s), Oral, QID, X 7 day(s), # 28 cap(s), Refills(s) 0, Pharmacy: [facility], 167.6, cm, 12/19/22 20:43:00 EDT, Height/Length Dosing, 87.1, kg, 12/20/2319:43:00 EDT, Weight Dosing Start Date: 12/19/22 Stop Date: 12/26/22 Status: Orderedcholecalciferol 0.05 mg oral tablet (11 sources)Vitamin DStart: 59-35-8962qcwi 1 tablet by mouth in the morning cholecalciferol (Vitamin D-3) 50 MCG (1999 UT) tablet Take 2,000 Units by mouth in the morning. 12/14/2022 ActiveCinnamon Preparation (19 sources)Non-Standardized Food Allergenic ExtractStart: 73-59-0855Qduwidvb 1,000 mg, Daily, Refills(s) 0 Start Date: 09/07/21 Status: Ordereddocusate sodium 100 mg oral tablet (17 sources)Start: 19-82-6388wsve 100 mg by mouth twice dailyColace 100 mg, Oral, BID, Refills(s) 0 Start Date: 05/01/23 Status: Ordered Repeat number: 1 exemestane 25 mg oral tablet (15 sources)Aromatase InhibitorStart: 73-28-8369yvpx 1 tablet by mouth once dailyexemestane 25 mg Tab 25 mg = 1 tab(s), Oral, Daily, # 30 tab(s), Refills(s) 11, Pharmacy: [facility], 167.6, cm, 06/12/23 11:02:00 EST, Height/Length Dosing, 90.7, kg, 06/12/23 11:02:00 EST, Weight Dosing Start Date: 06/13/23 Status: Ordered Quantity: 30.0 Unit: tab(s) Repeat number: 12 I ndications: Malignant neoplasm of unspecified site of unspecified female breast; ferrous sulfate 325 mg oral tablet (14 sources)Start: 53-66-7446hsub 1 tablet by mouth once dailyferrous sulfate 325 mg Tab 325 mg = 1 tab(s), Oral, Daily, Refills(s) 0 Start Date: 01/09/24 Status:Ordered Repeat number: 1Fish Oils (20 sources)Start: 94-92-9716wvwu 1 capsule by mouth once dailyFish Oil 1000 mg oral capsule 1,000 mg = 1 cap(s), Oral, Daily, Refills(s) 0 Start Date: 07/03/21 Status: Orderedfurosemide 40 mg oral tablet (20 sources)Loop DiureticStart: 56-61-5719bwti 1 tablet by mouth once daily furosemide 40 mg Tab 40 mg = 1 tab(s), Oral, Daily, Refills(s) 0 Start Date: 07/03/21 Status: OrderedKisqali (200 mg daily dose) (20 sources)Start: 00-47-4937Vrrwsjq (200 mg daily dose) 200 mg, TID, Refills(s) 0 Start Date: 09/07/21 Status: OrderedClaritin (17 sources)Start: 59-14-4632Ofiibnns 10 mg, Refills(s) 0 Start Date: 05/01/23 Status: Ordered Repeat number: 1Start: 67-04-2329Rfdbaczp 10 mg, Refills(s) 0 Start Date: 05/01/23 Status: Orderedmelatonin 5 mg oral tablet (20 sources)Start: 94-68-0433poyk 1 tablet by mouth once daily at bedtime as neededmelatonin 5 mg oral tablet 5 mg = 1 tab(s), Oral, Once a day (at bedtime), PRN for insomnia, # 60 tab(s), Refills(s) 0 Start Date: 11/13/22 Status: Ordered Quantity: 60.0 Unit: tab(s) Repeat number: 1ondansetron 8 mg oral tablet (20 sources)Serotonin-3 Receptor AntagonistStart: 64-78-7643pqui 1 tablet by mouth every eight hours as needed for nauseaondansetron 8 mg Tab 8 mg, Oral, q8hr, PRN Nausea, # 30 tab(s), Refills(s) 3, Pharmacy: [facility], 162.5, cm, 08/10/21 12:38:00 EDT, Height/Length Dosing, 96.5, kg, 08/10/21 12:38:00EDT, Weight Dosing Start Date: 08/24/21 Status: OrderedoxyCODONE hydrochloride 5 mg oral tablet (12 sources)Opioid AgonistStart: 12-17-2022 End: 61-07-3609wobx 1 tablet by mouth every six hours as needed for pain oxyCODONE (Roxicodone) 5 MG immediate release tablet Take 5 mg by mouth every 6 (six) hours if needed for severe pain. 12/17/2022 ActiveMiralax (17 sources)Osmotic LaxativeStart: 64-43-5872oult 17 g by mouth once daily MiraLax 17 gm, Oral, Daily, Refill(s) 0 Start Date: 05/01/23 Status: Ordered Repeat number: 1Start: 51-93-7953tuym 17 g by mouth once dailyMiraLax 17 gm, Oral, Daily, Refill(s) 0 Start Date: 05/01/23 Status: Orderedsimvastatin 40 mg oral tablet (20 sources)HMG-CoA Reductase InhibitorStart: 33-04-4601pqrk 1 tablet by mouth once daily at bedtimesimvastatin 40 mg Tab 40 mg = 1 tab(s), Oral, Once a day (at bedtime), Refills(s) 0 Start Date: 07/03/21 Status: Ordered Repeat number: 1 traMADol hydrochloride 50 mg oral tablet (17 sources)Opioid AgonistStart: 35-89-4814xdgi 50 mg by mouth every six hours tramadol 50 mg, Oral, q6hr, Refills(s) 0 Start Date: 05/01/23 Status: Ordered Repeat number: 1vitamin b12 1 mg oral tablet (11 sources)Vitamin O95Rzfbj: 16-38-6917yiaf 1 tablet by mouth in the morning cyanocobalamin (Vitamin B-12) 1000 MCG tablet Take 1,000 mcg by mouth in the morning. 09/27/2022 ActiveVitamin B12 1000 mcg Tab (20 sources)Start: 27-79-6923witi 1 tablet by mouth once dailyVitamin B12 1000 mcg Tab 1,000 mcg = 1 tab(s), Oral, Daily, # 30 tab(s), Refills(s) 11, Pharmacy: [facility], 162, cm, 09/08/22 15:14:00 EDT, Height/Length Dosing, 96.4, kg, 09/27/22 13:43:00 EDT, Weight Dosing Start Date: 09/27/22 Status: Ordered Quantity: 30.0 Unit: tab(s) Repeat number: 12 Indications: Malignant neoplasm of unspecified site of unspecified female breast;Start: 86-94-9140alrf 1 tablet by mouth once dailyVitamin B12 1000 mcg Tab 1,000 mcg = 1 tab(s), Oral, Daily, # 30 tab(s), Refills(s) 11, Pharmacy: [facility], 162, cm, 09/08/22 15:14:00 EDT, Height/Length Dosing, 96.4, kg, 09/27/22 13:43:00 EDT, Weight Dosing Start Date: 09/27/22 Status: Ordered Quantity: 30.0 Unit: tab(s) Repeat number: 12 Indication: Malignant neoplasm of unspecified site of unspecified female breastStart: 48-46-9560hfkh 1 tablet by mouth once dailyVitamin B12 1000 mcg Tab 1,000 mcg = 1 tab(s), Oral, Daily, # 30 tab(s), Refills(s) 11, Pharmacy: [facility] #[facility], 162, cm, 09/08/22 15:14:00 EDT, Height/Length Dosing, 96.4, kg, 09/27/22 13:43:00 EDT, Weight Dosing Start Date: 09/27/22 Status: OrderedVitamin D3 2000 intl units oral tablet (20 sources)Start: 91-01-7677vown 1 tablet by mouth once dailyVitamin D3 2000 intl units oral tablet 50 mcg = 1 tab(s), Oral, Daily, # 90 tab(s), Refills(s) 4, Pharmacy: [facility] #[facility], 167, cm, 11/01/22 20:02:00 EDT, Height/Length Dosing, 90.3, kg,11/01/22 20:02:00 EDT, Weight Dosing Start Date: 12/14/22 Status: Ordered Quantity: 90.0 Unit: tab(s) Repeat number: 5Start: 43-27-7188nnhz 1 tablet by mouth once dailyVitamin D3 2000 intl units oral tablet 50 mcg = 1 tab(s), Oral, Daily, # 90 tab(s), Refills(s) 4, Pharmacy: [facility] #[facility], 167, cm, 11/01/22 20:02:00 EDT, Height/Length Dosing, 90.3, kg,11/01/22 20:02:00 EDT, Weight Dosing Start Date: 12/14/22 Status: Ordered Completed/Discontinued Medications MedicationDrug Class(es)DatesSig (Normalized)Sig (Original)ergocalciferol 1.25 mg oral capsule (2 sources)Provitamin D2 CompoundStart: 89-30-7958lrlp 1 capsule by mouth once dailyergocalciferol 50,000 intl units Cap 50,000 International_Unit = 1 cap(s), Oral, q7day, x 8 wks then 2000 units daily, # 7 cap(s), Refills(s) 0, Pharmacy: [facility] #37, 167, cm, 11/01/22 20:02:00 EDT, Height/Length Dosing, 90.3, kg, 11/01/22 20:02:00 EDT, Weight Dosing Start Date: 11/04/22 Status: OrderedStart: 91-75-2075zrkzwjlnboeoto 50,000 intl units Cap 50,000 International_Unit = 1 cap(s), Oral, q7day, # 7 cap(s),Refills(s) 0, Pharmacy: [facility] #37, 167, cm, 11/01/22 20:02:00 EDT, Height/Length Do sing, 90.3, kg, 11/01/22 20:02:00 EDT, Weight Dosing Start Date: 11/04/22 Status: OrderedInsulin Lispro (3 sources)Insulin AnalogStart: 12-23-2022 End: 60-71-6764Iarfgxt Lispro Sliding Scale 0-10 Unit(s), Injection-Insulin, SubCutaneous, Start date 12/23/22 7:30:00 EDT Start Date: 12/23/22 Stop Date: 12/23/22 Status: CompletedStart: 12-22-2022 End: 46-70-2464Rgyfxwz Lispro Sliding Scale 0-10 Unit(s), Injection-Insulin, SubCutaneous, Start date 12/22/22 16:30:00 EDT Start Date: 12/22/22 Stop Date: 12/22/22 Status: CompletedStart: 12-22-2022 End: 94-49-4543Zomxhps Lispro Sliding Scale 0-10 Unit(s), Injection-Insulin, SubCutaneous, Start date 12/22/22 11:30:00 EDT Start Date: 12/22/22 Stop Date: 12/22/22 Status: Completedlisinopril 10 mg oral tablet (20 sources)Angiotensin Converting Enzyme InhibitorStart: 12-23-2022 End: 30-31-6056iizoilisme 10 mg Tab 10 mg = 1 tab(s), Tab, Oral, Start date 12/23/22 9:00:00 EDT, 12/20/22 20:32:00 EDT Start Date: 12/23/22 Stop Date: 12/23/22 Status: CompletedStart: 11-04-2022 End: 29-47-5768fvyqemmdiy 10 mg Tab 10 mg = 1 tab(s), Tab, Oral, Start date 11/04/22 9:00:00 EDT, 11/02/22 12:05:00 EDT Start Date: 11/04/22 Stop Date: 11/04/22 Status: CompletedStart: 55-29-4099nemv 1 tablet by mouth once daily lisinopril 10 mg Tab 10 mg = 1 tab(s), Oral, Daily, Refills(s) 0 Start Date: 07/18/21 Status: Ordered Repeat number: 1Start: 30-40-4669zyxs 1 tablet by mouth once dailylisinopril 5 mg Tab 5 mg = 1 tab(s), Oral, Daily, Refills(s) 0 Start Date: 07/03/21 Status: Ordered{63 (ribociclib 200 MG Oral Tablet [Kisqali]) } Pack [Kisqali 600 MG Daily Dose Carton] (20 sources)Start: 47-61-2437Yyyvagq (600 mg daily dose) oral tablet 600 mg = 3 tab(s), Oral, Daily, take for 21 days followed by a 7 day rest period this is an increase in dose. pt was taking 400 mg but will now be taking 600 mg daily, # 63 tab(s), Refills(s) 12, Pharmacy: [id number], 167.6, cm, 01/09/24 10:45:00 EDT, Height/Length Dosing, 99, kg, 01/09/24 10:45:00 EDT, Weight Dosing Start Date: 01/09/24 Status: Ordered Quantity: 63.0 Unit: tab(s) Repeat number: 13 Indications: Malignant neoplasm of unspecified site of unspecified female breast;Start: 69-65-2331Fjpueki (600 mg daily dose) oral tablet 600 mg = 3 tab(s), Oral, Daily, take for 21 days followed by a 7 day rest period this is an increase in dose. pt was taking 400 mg but will now be taking 600 mg daily, # 63 tab(s), Refills(s) 12, Pharmacy: [id number], 167.6, cm, 01/09/24 10:45:00 EDT, Height/Length Dosing, 99, kg, 01/09/24 10:45:00 EDT, Weight Dosing Start Date: 01/09/24 Status: Ordered Quantity: 63.0 Unit: tab(s) Repeat number: 13 Indication: Malignant neoplasm of unspecified site of unspecified female breastStart: 61-23-3650Jmesdja (600 mg daily dose) oral tablet 600 mg = 3 tab(s), Oral, Daily, take for 21 days followed by a 7 day rest period this is an increase in dose. pt was taking 400 mg but will now be taking 600 mg daily, # 63 tab(s), Refills(s) 12, Pharmacy: [id number], 167.6, cm, 01/09/24 10:45:00 EDT, Height/Length Dosing, 99, kg, 01/09/24 10:45:00 EDT, Weight Dosing Start Date: 01/09/24 Status: OrderedStart: 12-03-2023 End: 69-60-7444Qebrpdc (400 mg daily dose) oral tablet 400 mg = 2 tab(s), Oral, Daily, 21 DAYS ON THEN 7 DAYS OFF 400 MG DAILY DOSE, X 21 day(s), # 42 tab(s), Refills(s) 12, Pharmacy: [facility], 167.6,cm, 09/12/23 10:31:00 EDT, Height/Length Dosing, 90.7, kg, 09/12/23 10:31:00 EDT, Weight Dosing Start Date: 12/03/23 Stop Date: 09/01/24 Status: Ordered Quantity: 42.0 Unit: tab(s) Repeat number: 13 Indication: Malignant neoplasm of unspecified site of unspecified female breastStart: 12-03-2023 End: 07-74-2074Ysveiby (400 mg daily dose) oral tablet 400 mg = 2 tab(s), Oral, Daily, 21 DAYS ON THEN 7 DAYS OFF 400 MG DAILY DOSE, X 21 day(s), # 42 tab(s), Refills(s) 12, Pharmacy: [facility], 167.6,cm, 09/12/23 10:31:00 EDT, Height/Length Dosing, 90.7, kg, 09/12/23 10:31:00 EDT, Weight Dosing Start Date: 12/03/23 Stop Date: 09/01/24 Status: OrderedStart: 05-30-2023 End: 01-29-8593Rzqprkz (400 mg daily dose) oral tablet 400 mg = 2 tab(s), Oral, Daily, 21 DAYS ON THEN 7 DAYS OFF 400 MG DAILY DOSE, X 21 day(s), # 42 tab(s), Refills(s) 12, [id number], 167.6, cm, 05/01/23 14:05:00 EST, Height/Length Dosing, 86.7, kg, 12/20/22 15:11:00 EDT, Weight Dosing Start Date: 05/30/23 Stop Date: 02/27/24 Status: OrderedStart: 00-42-6689ijpkjltgxd 200 mg dose (Kisqali, 200 MG Dose,) tablet chemo therapy pack See Instructions, 2 tab(s)take for 21 days, withhold for 7 days, then repeat cycle. 11 REFILLS, # 42 tab(s), Refills(s) 1, called to pharmacy (Rx) 05/09/2022 ActiveStart: 26-22-8421Tchnmnx (400 mg daily dose) oral tablet See Instructions, 1 tab by mouth for 21 days, withhold for 7 days then repeat cycle., # 21 tab(s), Refills(s) 1, [facility], 162.5,cm, 03/28/22 14:05:00 EST, Height/Length Dosing, 96.6, kg, 03/28/22 14:05:00 EST, Weight Do... Start Date: 03/29/22 Status: OrderedStart: 96-85-7158ovfuppxupg 200 mg oral tablet See Instructions, take 1 tab(s) po days 1-21 take for 21 days, withhold for 7 days, then repeat cycle, # 21 tab(s), Refills(s) 11, called to pharmacy (Rx) Start Date: 03/14/22 Status: Ordered Problems Active Problems Problem ClassificationProblemDateDocumented DateEpisodic/ChronicAllergic reactions (1 source)Urticaria; Translations: [Other urticaria]Onset: 06-22-1060Duiiijhk Cancer of breast (20 sources)Malignant neoplasm of upper-outer quadrant of right female breast; Translations: [Malignant neoplasm of upper-outer quadrant of female breast] Onset: 93-80-4414KkrqdmyBahsse of breast (20 sources)Personal history of malignant neoplasm of breast; Translations: [History of malignant neoplasm of breast]Onset: 34-00-0472YsdovatnCgsdwn of colon (12 sources)Malignant tumor of colon; Translations: [Malignant neoplasm of colon, unspecified]Onset: 12-19-8103CsmqczpJrmgmurhdx and other anemia (1 source)Anemia; Translations: [Anemia, unspecified]Onset: 18-06-5625Virkaefa Delirium, dementia, and amnestic and other cognitive disorders (20 sources)Age-related cognitive decline; Translations: [Age-related cognitive decline]Onset: 99-65-5134ExcchnzIdrzghft mellitus without complication (20 sources)Diabetes mellitus; Translations: [Type 2 diabetes mellitus without complication]Onset: 653609-96-6944BgylmbyGmiuiostt of lipid metabolism (20 sources)Hypercholesterolemia; Translations: [Pure hypercholesterolemia] Onset: 744283-67-3734PrblwcmF Codes: Fall (1 source)Fall; Translations: [Unspecified fall, initial encounter]Onset: 50-70-8550MplhwvnoMhthuukxq hypertension (20 sources)Hypertensive disorder; Translations: [Essential hypertension]Onset: 641018-27-3336PmlvfjxCmnqo and electrolyte disorders (1 source)Dehydration; Translations: [Dehydration]Onset: 44-49-4762Znuaqngl Malaise and fatigue (2 sources)Asthenia; Translations: [Weakness]Onset: 57-22-7055Cujftuhj Nutritional deficiencies (20 sources)Vitamin D deficiency; Translations: [Vitamin D deficiency, unspecified]Onset: 11-79-8828RtafewzJmcor aftercare (1 source)Long-term current use of drug therapy; Translations: [Other snf (current) drug therapy]Onset: 66-58-2075JffpyyowHhssn connective tissue disease (2 sources)Recurrent falls ; Translations: [Repeated falls]Onset: 11-02-2022 EpisodicOther fractures (20 sources)Multiple pelvic fractures; Translations: [Multiple fractures of pelvis with stable disruption of pelvic ring, subsequent encounter for fracture with routine healing]Onset: 76-09-9965PshqicghEhery fractures (1 source)Closed fracture lumbar vertebra, wedge ; Translations: [Wedge compression fracture of unspecified lumbar vertebra, initial encounter for closed fracture]Onset: 71-77-9491ZcheqydbXtmib nutritional; endocrine; and metabolic disorders (20 sources)Body mass index 30+ - obesity; Translations: [Body mass index (BMI) 36.0-36.9, adult]Onset: 493847-12-6632LmqlwwdAfkrb nutritional; endocrine; and metabolic disorders (11 sources)Obese class I; Translations: [Obesity, unspecified]Onset: 09-13-2021 52-56-4369YnhiwnvTodre nutritional; endocrine; and metabolic disorders (11 sources)Obesity; Translations: [Obesity, unspecified]Onset: 10-24-2022 87-43-9109EkspntoKrzxjdlweenv fracture (20 sources)H/O: fragility fracture; Translations: [Personal history of (healed) osteoporosis fracture]Onset: 33-11-6041UnkmedseUsuuodmly malignancies (13 sources)Secondary malignant neoplasm of bone; Translations: [Secondary malignant neoplasm of bone]Onset: 09-60-4543Qeawnde Past or Other Problems Problem ClassificationProblemDateDocumented DateEpisodic/ChronicLymphadenitis (20 sources)Axillary lymphadenopathy; Translations: [Localized enlarged lymph nodes]Onset: 606313-72-4705IemobxinFfbo disorders (11 sources)Mood disordersOnset: 520015-35-9384Mejrwyu (11 sources)Onychomycosis; Translations: [Tinea unguium]Onset: 09-19-2022 71-30-2567EagucxczRqpzbcuwvaou breast conditions (20 sources)Lump of upper outer quadrant of breast; Translations: [Lump in upper outer quadrant of right breast]Onset: 422231-55-6885XmvpehcbBpaef connective tissue disease (11 sources)Pain of toe of left foot; Translations: [Pain in left toe(s)]Onset: 446528-70-4614ZymqitumXqqht connective tissue disease (11 sources)Pain of toe of right foot; Translations: [Pain in right toe(s)] Onset: 400098-57-0824XheidujtWixrwwiq codes; unclassified (20 sources)Edema; Translations: [Edema, unspecified]Onset: EpisodicResidual codes; unclassified (11 sources)H/O: high risk medication; Translations: [Personal history of other drug therapy]Onset: 340423-59-9854DdcxqkmzLyjlgrc tract infections (3 sources)Urinary tract infectious disease; Translations: [Urinary tract infection, site not specified]Onset: 21-64-6589Ukzhdrwu Results Test NameValueInterpretationReference RangeFacilityALL POTASSIUMon 02-24-2025 Interpretation and review of laboratory resultsAbnormalNOMS HealthcarePotassium [Moles/Vol]5.3 mmol/LHigh3.5 - 5.1 mmol/LNOMS HealthcareCLINISYNCNOMS Healthcare ALL POTASSIUMon 69-74-0848Zjdwflxga [Moles/Vol]4.9 mmol/L3.5 - 5.1 mmol/LNOMS HealthcareMCLAREN [facility] DROP OFF CLINISYNCNOMS HealthcareGLUCOSE POCT GLUCOMETERSon 22-44-0727Amrcxty [Mass/Vol] 127 mg/dLMid Missouri Mental Health CenterComment on above:Random Glucose Reference Range is dependent on time and content of last meal. Glucose of more than 200 mg/dL in a nonstressed, ambulatory subject supports the diagnosis of Diabetes Mellitus. [facility] Health CenterGlucose Glucometer (dC) [Mass/Vol]Ordered By: Senthil Caldera on 67-78-5598Euqqwuu [Mass/Vol]Capillary blood glucose measurement by glucometer (mass/volume)[facility] Medical CenterComment on above:Random Glucose Reference Range is dependent on time and content of last meal. Glucose of more than 200 mg/dL in a nonstressed, ambulatory subject supports the diagnosis of Diabetes Mellitus.Glucose Poct Glucometerson 16-56-2897Jzyziet [Mass/Vol]127 mg/dLNoNovant Health Franklin Medical Center Physician GroupComment on above:Result Comment: Random Glucose Reference Range is dependent on time and content of last meal. Glucose of more than 200 mg/dL in a nonstressed, ambulatory subject supports the diagnosis of Diabetes Mellitus. PERFORMED BY: [place] [address] PATHOLOGIST EQUIPMENT TECH KIKI URIBE M.D.Performed By: #### GLULS #### Point of Care testing ,PET tumor subq tx strat sb-mton 53-80-3821WIH tumor subq tx strat sb-[place] [address] Nuclear Medicine Report Signed Patient: Marlen Staley MR#: [id number] 65 : 1950 Acct:[id number] Age/Sex: 74 / F ADM Date: 09/30/24 Loc: Room: Type: [facility] Attending Dr: Senthil Caldera - [facility] DO Copies to: Fady Muir Jr, DO [...] excluded. Impression dictated by: Fady Muir Jr., D.OAspen 09/30/2024 11:48 AM Dictation Location: [place] [address] Transcribed By: [facility] 09/30/24 1148 Dictated By: Fady Muir Jr, DO 09/30/24 1057 Signed By: 09/30/24 1148[facility] [facility] Physician GroupGLUCOSE POCT GLUCOMETERSon 08-90-5405CUUDMid Missouri Mental Health CenterGlucose Glucometer ([facility]) [Mass/Vol]Ordered By: Senthil Caldera on 42-50-0977Iyvpypu [Mass/Vol]Capillary blood glucose measurement by glucometer (mass/volume)[facility] Va Medical CenterComment on above: Random Glucose Reference Range is dependent on time and content of last meal. Glucose of more than 200 mg/dL in a nonstressed, ambulatory subject supports the diagnosis of Diabetes Mellitus.Glucose Poct Glucometerson 63-02-4987Tizwhky [Mass/Vol]121 mg/dLNoFoundations Behavioral HealthComment on above:Random Glucose Reference Range is dependent [...] the diagnosis of Diabetes Mellitus. PERFORMED BY: [place] [address] PATHOLOGIST EQUIPMENT TECH LORIE GAGE M.D.Performed By: #### GLULS #### Point of Care testing ,PET tumor subq tx strat sb-mton 03-09-0043HKF tumor subq tx strat sb-mt [facility] [place] [address] [place] [address] Nuclear Medicine Report Signed Patient: Marlen Staley MR#: [id number] 65 : 1950 Acct:[id number] Age/Sex: 74 / F ADM Date: 08/17/24 Loc: Room: Type: [facility] Attending Dr: Senthil Caldera - [facility] DO Copies to: Fady Muir Jr, DO [...] nodes. Impression dictated by: Fady Muir Jr., D.OAspen 08/17/2024 3:15 PM Dictation Location: [facility]--22 Transcribed By: [facility] 08/17/24 1515 Dictated By: Fady Muir Jr, DO 08/17/24 1455 Signed By: 08/17/24 1515NoNovant Health Franklin Medical Center Physician GroupGLUCOSE POCT GLUCOMETERSon 55-22-4539Snuyaqh [Mass/Vol]182 mg/dLMid Missouri Mental Health CenterComment on above:Random Glucose Reference Range is dependent on time and content of last meal. Glucose of more than 200 mg/dL in a nonstressed, ambulatory subject supports the diagnosis of Diabetes Mellitus. [facility] Health CenterGlucose Glucometer ([facility]) [Mass/Vol]Ordered By: Senthil Caldera on 82-14-8410Urpclqj [Mass/Vol]Capillary blood glucose measurement by glucometer (mass/volume)[facility] Va Medical CenterComment on above:Random Glucose Reference Range is dependent on time and content of last meal. Glucose of more than 200 mg/dL in a nonstressed, ambulatory subject supports the diagnosis of Diabetes Mellitus.Glucose Poct Glucometerson 01-81-8109Ffbghab [Mass/Vol]182 mg/dLNoNovant Health Franklin Medical Center Physician GroupComment on above:Result Comment: Random Glucose Reference Range is dependent on time and content of last meal. Glucose of more than 200 mg/dL in a nonstressed, ambulatory subject supports the diagnosis of Diabetes Mellitus. PERFORMED BY: [place] [address] PATHOLOGIST EQUIPMENT TECH LORIE GAGE M.D.Performed By: #### GLULS #### Point of Care testing ,PET tumor subq tx strat -mton 33-96-5608OTY tumor subq tx strat -[facility] [place] [address] Nuclear Medicine Report Signed Patient: Marlen Staley MR#: [id number] 65 : 1950 Acct:[id number] Age/Sex: 73 / F ADM Date: 04/29/24 Loc: Room: Type: [facility] Attending Dr: Senthil Caldera - [facility] DO Copies to: MD Senthil Guo DO [...] Carlos Guaman M.D.04/29/2024 4:17 PM Dictation Location: [place] [address] Transcribed By: [facility] 04/29/24 1617 Dictated By: Carlos Guaman MD 04/29/24 1607 Signed By: 04/29/24 1617[facility] Physician [facility] HospitalALL CBC WITH AUTO DIFFon 00-72-7422VUEUUKQQD ABSOLUTE AUTO0.1NOMS HealthcareBasophils/100 WBC (Bld)2.7 % High0.2 - 2.0 %NOMS HealthcareEosinophils/100 WBC (Bld)3.5 %0.9 - 7.0 %NOMS HealthcareErythrocyte distribution width (RBC) [Ratio]13.6 %11.0 - 15.0 %NOMSaint John'S Breech Regional Medical CenterHematocrit (Bld) [Volume fraction]32.2 %Low36.0 - 48.0 %[facility] Mental Health CenterHemoglobin (Bld) [Mass/Vol]10.3 g/dLLow12.0 - 16.0 g/dLMid Missouri Mental Health Center IMMATURE GRANULOCYTES ABS AUTO0.03NOSoutheast Missouri HospitalImmature granulocytes/100 WBC (Bld)0.7 %High0.0 - 0.5 %[facility] Health CenterInterpretation and review of laboratory resultsAbnormalNOSoutheast Missouri HospitalLYMPHOCYTES ABSOLUTE AUTO1.4NOMS [facility] Lymphocytes/100 WBC (Bld)33.9 %20.5 - 60.0 %[facility] HospitalH (RBC) [Entitic mass]33.3 pg26.7 - 34.0 pgNOCitizens Memorial HealthcareHC (RBC) [Mass/Vol]32.0 g/dL29.9 - 35.2 g/dLMid Missouri Mental Health CenterMCV (RBC) [Entitic vol]104.2 jELwpi73.0 - 99.0 fLMid Missouri Mental Health CenterMONOCYTES ABSOLUTE AUTO0.3NOMS [facility] HamiltonMonocytes/100 WBC (Bld)6.2 % 1.7 - 12.0 %[facility] CenterNEUTROPHILS ABSOLUTE AUTO2.1NOMS [facility] Neutrophils/100 WBC (Bld)53.0 %43.0 - 75.0 %[facility] Health CenterPlatelet mean volume (Bld) [Entitic vol]9.3 fLLow9.5 - 13.5 fLMid Missouri Mental Health CenterTBH EO #0.1NOMS [facility] HamiltonTB VFR274JGGT [facility] RBC3.09LowNOMS [facility] WBC4.0NOSoutheast Missouri HospitalCLINISYNCNOKLAHOMA SP[facility] HealthcareCapillary blood glucose measurement by glucometer (mass/volume)Ordered By: Senthil Caldera on 62-11-5866Bteblhk [Mass/Vol]121 mg/dLFirelands Regional Medical CenterComment on above: Random Glucose Reference Range is [...] the diagnosis of Diabetes Mellitus. PERFORMED BY: [place] [address] PATHOLOGIST EQUIPMENT TECH JERICA JO M.D.Performed By: #### GLULS #### Point of Care testing ,GLUCOSE POCT GLUCOMETERSon 71-09-5201Ftzpuzx [Mass/Vol]121 mg/dLMid Missouri Mental Health Center Comment on above:Random Glucose Reference Range is dependent on time and content of last meal. Glucose of more than 200 mg/dL in a nonstressed, ambulatory subject supports the diagnosis of Diabetes Mellitus. NOMS HealthcarePET tumor subq tx strat sb-mton 25-93-0131MSE tumor subq tx strat sb-[place] [address] Nuclear Medicine Report Signed Patient: Marlen Staley MR#: [id number] 65 : 1950 Acct:[id number] Age/Sex: 73 / F ADM Date: 12/30/23 Loc: Room: Type: [facility] Attending Dr: Senthil Caldera - [facility] DO Copies to: Audi Rogers II, MD [...] Audi Rogers M.D.12/30/2023 2:23 PM Dictation Location: [place] [address] Transcribed By: [facility] 12/30/23 1423 Dictated By: Audi Rogers II, MD 12/30/23 1413 Signed By: 12/30/23 1423[facility] Physician GroupALL CBC WITH AUTO DIFFon 84-65-2170ZGUDPWBMT ABSOLUTE AUTO0.1NOMS HealthcareBasophils/100 WBC (Bld)2.8 % High0.2 - 2.0 %NOMS HealthcareEosinophils/100 WBC (Bld)4.9 %0.9 - 7.0 %NOMS HealthcareErythrocyte distribution width (RBC) [Ratio]14.0 %11.0 - 15.0 %NOMS HealthcareHematocrit (Bld) [Volume fraction]30.0 %Low36.0 - 48.0 %NOMS HealthcareHemoglobin (Bld) [Mass/Vol]9.9 g/dLLow12.0 - 16.0 g/dLNOMS Healthcare IMMATURE GRANULOCYTES ABS AUTO0.03NOMS HealthcareImmature granulocytes/100 WBC (Bld)0.8 %High0.0 - 0.5 %NOMS HealthcareInterpretation and review of laboratory resultsAbnormalNOMS HealthcareLYMPHOCYTES ABSOLUTE AUTO1.3[facility] Lymphocytes/100 WBC (Bld)32.5 %20.5 - 60.0 %[facility] HospitalH (RBC) [Entitic mass]34.1 kzDbrv42.7 - 34.0 pgSalem Memorial District HospitalHC (RBC) [Mass/Vol]33.0 g/dL29.9 - 35.2 g/dLSalem Memorial District HospitalV (RBC) [Entitic vol]103.4 mKVrzr39.0 - 99.0 fLMid Missouri Mental Health CenterMONOCYTES ABSOLUTE AUTO0.3NOIN HealthcareMonocytes/100 WBC (Bld)7.4 % 1.7 - 12.0 %[facility] CenterNEUTROPHILS ABSOLUTE AUTO2.0[facility] Neutrophils/100 WBC (Bld)51.6 %43.0 - 75.0 %[facility] Health CenterPlatelet mean volume (Bld) [Entitic vol]9.3 fLLow9.5 - 13.5 fLMid Missouri Mental Health CenterTBH EO #0.2NOMS HealthcareTBH [id number] [facility] HamiltonTB RBC2.90LowNOSoutheast Missouri HospitalTB WBC3.9Low [facility] Health CenterCLINISYNCNOMS HealthcareLaboratory Outside Office Copyon 22-38-4829Ygcbpijmvw Outside Office Copy [id number]#1.00TIFUniversity Hospitals Ahuja Medical CenterLaboratory Outside Office Copy [id number]#1.00TIFUniversity Hospitals Ahuja Medical CenterErythropoiet Lvlon 89-31-1381Glevmhkqhotugf (EPO) Qn16.8 mIU/mLInvalid Interpretation Code2.6-18.5Fisher St. Agnes HospitalComment on above:Result Comment: Gaby Nanorexel DxI 800 Immunoassay System Values obtained with different assay methods or kits cannot be used interchangeably. Results cannot be interpreted as absolute evidence of the presence or absence of malignant disease. Performed at: LabHenry [facility] [address] [place] [address] [id number] PhD [place] AvelarPerformed By: #### [id number] #### [facility] [address] [place], [place] [address]Efsavfk Radiologyon 76-88-1526Rhwdamd Radiology [id number]#1.00TIFFNormalSt. Elizabeth HospitalCBC w/ Auto Diffon 25-09-1618Svltzimml/100 WBC (Bld)1.1 %Normal0.0-2.0 [facility] [facility] HospitalComment on above:Performed By: #### [id number] #### [facility] [address] [place] [address] 115[address]Rmzhmdlog/Leukocytes Auto (Bld) [Pure # fraction]0.0 E9/LNormal 0.0-0.2FLakeHealth Beachwood Medical CenterComment on above:Performed By: #### [id number] #### [facility] [address] [place] [address]15[address]Vqyreyexqxj (Bld) [#/Vol]0.2 E9/LNormal0.0-0.5FLakeHealth Beachwood Medical CenterComment on above:Performed By: #### [id number] #### [facility] [address] [place] [address] 505[address]Mjgpimkynrw/100 WBC (Bld)4.3 %Normal0.0-8.0St. Elizabeth HospitalComment on above:Performed By: #### [id number] #### [facility] [address] [place] [address] 15857Hpikwzqmbpp distribution width (RBC) [Ratio]14.6 %High10.9-14.2 [facility] HospitalComment on above:Performed By: #### [id number] #### [facility] [address] [place] [address] 879[address]Imakhjchsi (Bld) [Volume fraction]35.9 %Yruyzp98.0-46.0St. [facility] HospitalComment on above:Performed By: #### [id number] #### [facility] [address] [place] [address] 066[address]Fvfapgqvkt (Bld) [Mass/Vol]11.7 g/dLLow12.0-16.0St. [facility] HospitalComment on above:Performed By: #### [id number] #### [facility] [address] [place] [address]Zomeanqammp (Bld) [#/Vol]1.3 E9/LNormal1.0-4.0St. [facility] HospitalComment on above:Performed By: #### [id number] #### [facility] [address] [place] [address]Ccninivusih/100 WBC (Bld)29.3 %Ayzjiy05.0-50.0St. [facility] HospitalComment on above:Performed By: #### [id number] #### [facility] [address] [place] [address] 406[address]FQN (RBC) [Entitic mass]33.9 djYipnxm64.0-34.0St. [facility] HospitalComment on above:Performed By: #### [id number] #### [facility] [address] [place] [address] 37721RTVQ (RBC) [Mass/Vol]32.7 g/jFQnltjd16.4-36.0St. [facility] HospitalComment on above:Performed By: #### [id number] #### [facility] [address] [place] [address]49[address]MTY (RBC) [Entitic vol]103.7 mCCpky76.0-100.0St. [facility] HospitalComment on above:Performed By: #### [id number] #### [facility] [address] [place] [address] 71780Izmjwvolx (Bld) [#/Vol]0.2 E9/LNormal0.2-1.0[facility]. [facility] HospitalComment on above:Performed By: #### [id number] #### [facility] [address] [place] [address] 20592Uvctjbiwyrk (Bld) [#/Vol]2.7 E9/LNormal2.0-7.5FLakeHealth Beachwood Medical CenterComment on above:Performed By: #### [id number] #### [facility] [address] [place], [place] [address]Foghmaixeja/100 WBC (Bld)60.4 %Qytxyq50.0-75.0St. [facility] HospitalComment on above:Performed By: #### [id number] #### [facility] [address] [place], [place] [address]Mbbnwbwi mean volume (Bld) [Entitic vol]6.8 fLNormal6.4-10.8 [facility] [facility] HospitalComment on above:Performed By: #### [id number] #### [facility] [address] [place], [place] [address]Ywndmzofq (Bld) [#/Vol]245.0 E9/GZcxica794.0-500.0St. [facility] HospitalComment on above:Performed By: #### [id number] #### [facility] [address] [place] [address] 322[address]GIS (Bld) [#/Vol]3.5 E12/LLow4.3-5.9[facility] Comment on above:Performed By: #### [id number] #### [facility] [address] [place] [address] 613[address]BSE corrected for nucl RBC Auto (Bld) [#/Vol]4.5 E9/LNormal 4.0-11.0St. [facility] HospitalComment on above:Performed By: #### [id number] #### [facility] [address] [place] [address] 85542HAXLKFVPAOxzkies By: SYSTEM SYSTEM on 27-92-1966Qwkfdue [Mass/Vol]3.8 g/dLNormal3.3 - 5.0 gm/dLRemisol ChemAlbumin/Globulin [Mass ratio] 1.2 {ratio}Normal1.1 - 2.2Remisol ChemALP [Catalytic activity/Vol]119 [iU]/dHigh 21 - 98 Int._Unit/LRemisol ChemALT No additional P-5'-P [Catalytic activity/Vol] 11 [iU]/dNormal6 - 46 Int._Unit/LRemisol ChemAnion gap [Moles/Vol]13 mmol/L Normal6 - 16 mEq/LRemisol ChemAST [Catalytic activity/Vol]12 [iU]/dNormal5 - 43 Int._Unit/LRemisol ChemBilirubin [Mass/Vol]0.3 mg/dLNormal0.0 - 1.1 mg/dLRemisol ChemCalcium [Mass/Vol]9.1 mg/dLNormal8.9 - 11.1 mg/dLRemisol ChemChloride [Moles/Vol]111 mmol/RXooulc211 - 111 mmol/LRemisol ChemCO2 [Moles/Vol]22 mmol/L Vepqhc70 - 31 mmol/LRemisol ChemCobalamin (Vitamin B12) [Mass/Vol]524 pg/mL Xpnmvo71 - 1500 pg/mLRemisol ChemCreatinine [Mass/Vol]1.9 mg/dLHigh0.5 - 1.3 mg/dLRemisol EdrqeRMK63 mL/min/1.73 m2Low>=59mL/min/1.73 l8Rbwrzcy ChemFerritin [Mass/Vol]193 ng/gSXzxhfw84 - 307 ng/mLRemisol ChemFolate [Mass/Vol]ng/mLNormal >=6.7ng/mLRemisol ChemGlobulin (S) [Mass/Vol]3.1 g/dLNormal1.4 - 4.0 gm/dL Remisol ChemGlucose [Mass/Vol]197 mg/bENragfk53 - 199 mg/dLRemisol ChemIron [Mass/Vol]81 ug/bSHczsfy95 - 153 mcg/dLRemisol ChemIron binding capacity [Mass/Vol]277 ug/kIJgrgow892 - 400 mcg/dLRemisol ChemIron saturation [Mass fraction]29 %Zihpfr44 - 50 %Remisol ChemPotassium [Moles/Vol]4.8 mmol/LNormal3.5 - 5.3 mmol/LRemisol ChemProtein [Mass/Vol]6.9 g/dLNormal6.0 - 7.8 gm/dLRemisol ChemSodium [Moles/Vol]141 mmol/OLszbdy647 - 145 mmol/LRemisol ChemTransferrin [Mass/Vol]198 mg/hFIxn112 - 370 mg/dLRemisol ChemUrea nitrogen [Mass/Vol]44 mg/dLHigh5 - 21 mg/dLRemisol ChemUrea nitrogen/Creatinine [Mass ratio]23 mg/mg High10 - 20Remisol ChemCMPon 37-82-6636Udeaydm [Mass/Vol]3.8 g/dLNormal3.3-5.0 [facility] [facility] HospitalComment on above:Performed By: #### [id number] #### [facility] [address] [place], [place] [address]Hrzdzsr/Globulin (S) [Mass conc ratio]1.7Wcefsg7.1-2.2FLakeHealth Beachwood Medical CenterComment on above:Performed By: #### [id number] #### [facility] [address] [place], [place] [address]DPR [Catalytic activity/Vol]119 Int._Unit/XNvyg73-08EfggqhSt. Elizabeth HospitalComment on above:Performed By: #### [id number] #### [facility] [address] [place], [place] [address]ARH No additional P-5'-P [Catalytic activity/Vol]11 Int._Unit/L Normal6-46St. Elizabeth HospitalComment on above:Performed By: #### [id number] #### [facility] [address] [place] [address] 844[address]Uxxxs gap [Moles/Vol]13 mmol/LNormal6-16St. Elizabeth HospitalComment on above:Performed By: #### [id number] #### [facility] [address] [place] [address] 85[address]CYP [Catalytic activity/Vol]12 Int._Unit/LNormal5-43St. Elizabeth HospitalComment on above:Performed By: #### [id number] #### [facility] [address] [place], [place] [address]Zgdacinqc [Mass/Vol]0.3 mg/dLNormal0.0-1.1FLakeHealth Beachwood Medical CenterComment on above:Performed By: #### [id number] #### [facility] [address] [place], [place] [address]Adqwygu [Mass/Vol]9.1 mg/dLNormal8.9-11.1FLakeHealth Beachwood Medical CenterComment on above:Performed By: #### [id number] #### [facility] [address] [place], [place] [address]Fglmgefs [Moles/Vol]111 mmol/ZUwwmji358-006NlvlpgSt. Elizabeth HospitalComment on above:Performed By: #### [id number] #### [facility] [address] [place], [place] [address]HO8 [Moles/Vol]22 mmol/SYpqtks64-65FisogmSt. Elizabeth Hospital Comment on above:Performed By: #### [id number] #### [facility] [address] [place], [place] [address]Tlyudumiwb [Mass/Vol]1.9 mg/dLHigh0.5-1.3FLakeHealth Beachwood Medical CenterComment on above:Performed By: #### [id number] #### [facility] [address] [place], [place] [address]Uyuivtxr (S) [Mass/Vol]3.1 g/dLNormal1.4-4.0St. [facility] HospitalComment on above:Performed By: #### [id number] #### [facility] [address] [place], [place] [address]Qvoiyux [Mass/Vol]197 mg/tPHaqngt83-485WprzmoSt. Elizabeth HospitalComment on above:Performed By: #### [id number] #### [facility] [address] [place], [place] [address]Enzmqitvk [Moles/Vol]4.8 mmol/LNormal3.5-5.3FLakeHealth Beachwood Medical CenterComment on above:Performed By: #### [id number] #### [facility] [address] [place], [place] [address]Hptwuvn [Mass/Vol]6.9 g/dLNormal6.0-7.8St. [facility] HospitalComment on above:Performed By: #### [id number] #### [facility] [address] [place], [place] [address]Nxhpon [Moles/Vol]141 mmol/TIxrjaf833-994RhpkrsSt. Elizabeth HospitalComment on above:Performed By: #### [id number] #### [facility] [address] [place], [place] [address]Psnj nitrogen [Mass/Vol]44 mg/dLHigh5-21St. [facility] HospitalComment on above:Performed By: #### [id number] #### [facility] [address] [place], [place] [address]Xqst nitrogen/Creatinine [Mass ratio]23 No HclrqXmzo88-93EsdxpdSt. Elizabeth HospitalComment on above:Performed By: #### [id number] #### [facility] [address] [place], [place] [address]Lskxbwx for Treatmenton 72-49-6066Gunzjmp for Treatment [id number]#1.00TIFFNormalSt. Elizabeth HospitalFerritinon 53-40-1001Qjdlazoz [Mass/Vol]193 ng/gAWquoeu96-789NclmqdSt. Elizabeth HospitalComment on above:Performed By: #### [id number] #### [facility] [address] [place], [place] [address]Xmfgljrt 60-15-0460Xiuemp [Mass/Vol]ng/mLNormal>=6.7Fisher St. Agnes HospitalComment on above:Performed By: #### [id number] #### [facility] [address] [place], [place] [address]VWXRMQZWHZPjacows By: SYSTEM SYSTEM on 89-21-1504Mnqmlvfhd/100 WBC (Bld)1.1 %Normal0.0 - 2.0 %Remisol HemeBasophils/Leukocytes Auto (Bld) [Pure # fraction]0.0 E9/LNormal0.0 - 0.2 E9/LRemisol HemeEosinophils (Bld) [#/Vol]0.2 E9/LNormal0.0 - 0.5 E9/LRemisol HemeEosinophils/100 WBC (Bld)4.3 %Normal0.0 - 8.0 %Remisol HemeErythrocyte distribution width (RBC) [Ratio]14.6 %High10.9 - 14.2 %Remisol HemeHematocrit (Bld) [Volume fraction]35.9 %Bpjlag22.0 - 46.0 % Remisol HemeHemoglobin (Bld) [Mass/Vol]11.7 g/dLLow12.0 - 16.0 gm/dLRemisol Heme Lymphocytes (Bld) [#/Vol]1.3 E9/LNormal1.0 - 4.0 E9/LRemisol HemeLymphocytes/100 WBC (Bld)29.3 %Bzmyux62.0 - 50.0 %Remisol HemeMCH (RBC) [Entitic mass]33.9 pg Cwoaud39.0 - 34.0 pgRemisol HemeMCHC (RBC) [Mass/Vol]32.7 g/zOHzkkio89.4 - 36.0 gm/dLRemisol HemeMCV (RBC) [Entitic vol]103.7 bRHdhz08.0 - 100.0 fLRemisol Heme Monocytes (Bld) [#/Vol]0.2 E9/LNormal0.2 - 1.0 E9/LRemisol HemeMonocytes/100 WBC (Bld)4.9 %Normal4.0 - 14.0 %Remisol HemeNeutrophils (Bld) [#/Vol]2.7 E9/LNormal 2.0 - 7.5 E9/LRemisol HemeNeutrophils/100 WBC (Bld)60.4 %Rmapua54.0 - 75.0 % Remisol HemePlatelet mean volume (Bld) [Entitic vol]6.8 fLNormal6.4 - 10.8 fL Remisol HemePlatelets (Bld) [#/Vol]245.0 E9/CTuqlsj019.0 - 500.0 E9/LRemisol HemeRBC (Bld) [#/Vol]3.5 E12/LLow4.3 - 5.9 E12/LRemisol HemeWBC corrected for nucl RBC Auto (Bld) [#/Vol]4.5 E9/LNormal4.0 - 11.0 E9/LRemisol HemeIronon 60-74-8991Mncj [Mass/Vol]81 microgram/nYUoryot37-893ExgtprSt. Elizabeth Hospital Comment on above:Performed By: #### [id number] #### [facility] [address] [place], [place] [address]Avmq Saturationon 80-16-9124Cghu binding capacity [Mass/Vol]277 microgram/sIQkbyfz805-298PfqsikSt. Elizabeth HospitalComment on above:Performed By: #### [id number] #### [facility] [address] [place], [place] [address]Yamu saturation [Mass fraction]29 %Mrztqk33-28PbmhtrSt. Elizabeth HospitalComment on above:Performed By: #### [id number] #### [facility] [address] [place], [place] [address]Apnvqlal Progress Noteon 31-01-7448Oyysiwhj Progress NoteChief Complaint Follow up on Breast [...] cm in length. ER greater than 95, AL greater than 95. Her2 1+ (this is [...] injections 01/30/23 she spent some time in [facility] maybe last month. They didnt have a bed afer her last hospitalization (for uti) a few weeks ago and so upon discharge went to [facility] Her friends are concerned she will not be safe if she goes home. she seems to have a bad memory. her is also in [facility], despite our meticulous calender she seems to have trouble remembering to taek this when she was at home. She insists she is getting better and wants to go home. 05/01/23 she is in [facility] she is convinced she will be able to be independent again. She is not walking even with a walker. [facility] anemi (more content not included)...NormalFisher St. Agnes HospitalPhysician Orderon 33-68-4150Jwztimzzb Order [id number]#1.00TIFFNormalFisher St. Agnes HospitalPhysician [id number]#1.00TIFFNormal [address] [facility] HospitalPhysician Order [id number]#1.00TIFUniversity Hospitals Ahuja Medical CenterTransferrinon 51-17-5098Mtbnphbzowt [Mass/Vol]198 mg/zJDvl595-322HdgmuvSt. Elizabeth HospitalComment on above:Performed By: #### [id number] #### [facility] [address] [place], [place] [address]Vfz B12on 80-65-4307Xyynfpxfj (Vitamin B12) [Mass/Vol]524 pg/mL Hvieoz06-4804IyzyldSt. Elizabeth HospitalComment on above:Performed By: #### [id number] #### [facility] [address] [place], [place] [address]yFIRzb 43-17-5707eOYY42 mL/min/1.73 m2Low>=59St. Elizabeth HospitalComment on above:Order Comment: Order added by Discern Expert. Performed By: #### [id number] #### [facility] [address] [place], [place] [address]Xsd Reportson 43-90-6703Qhj Reports [id number]#1.00Trumbull Memorial HospitalGlucose Glucometer (BldC) [Mass/Vol]Ordered By: Senthil Caldera on 67-80-0366Krnvhbr [Mass/Vol]127 mg/dLLouis Stokes Cleveland Va Medical CenterComment on above:Random Glucose Reference Range is dependent on time and content of last meal. Glucose of more than 200 mg/dL in a nonstressed, ambulatory subject supports the diagnosis of Diabetes Mellitus.Physician Orderon 06-27-2023 Physician [id number]#1.00Trumbull Memorial HospitalConsent for Treatmenton 50-35-1308Tnpobfz for Treatment [id number]#1.00TIFUniversity Hospitals Geneva [facility] Center Pat Eduon 79-81-1302UG Pat EduCaregiving Fall Prevention in the Home, [...] Keep items that you use often in swiq-jg-xveds places. Lower the shelves around your home [...] the way. ? Do not use floor tristanian or wax that makes floors slippery. What [...] ? Centers for Disease Control and Prevention, EL[place]: www.cdc.gov ? National [place] on Aging: www.derrick.nih.gov Contact a doctor if: [...] provider. Document Revised: 01/08/2022 Document Reviewed: 11/09/2020 [employer] Patient Education ? 2022 [employer]. Nutrition High-Protein and H (more content not included)...NormalFishBanner Del E [facility] Medical Center Medical [facility] EduCaregiving Fall Prevention in the Home, [...] Keep items that you use often in wcnm-br-jnqtc places. Lower the shelves around your home [...] the way. ? Do not use floor tristanian or wax that makes floors slippery. What [...] Control and Prevention, STEADI: www.cdc.gov ? National Amidon on Aging: www.derrick.nih.gov Contact a doctor if: [...] provider. Document Revised: 01/08/2022 Document Reviewed: 11/09/2020 [employer] Patient Education ? 2022 [employer]. Obstetrics and Gynecology Br (more content not included)...[facility] Caregiving Fall Prevention in the Home, [...] Keep items that you use often in slxf-nc-akyym places. Lower the shelves around your home [...] the way. ? Do not use floor tristanian or wax that makes floors slippery. What [...] ? Centers for Disease Control and Prevention, ELIO: www.cdc.gov ? National Amidon on Aging: www.derrick.nih.gov Contact a doctor if: [...] provider. Document Revised: 01/08/2022 Document Reviewed: 11/09/2020 [employer] Patient Education ? 2022 [employer].[facility] Oncology Progress Noteon 54-35-1560Rellybjo Progress NoteChief Complaint Breast CA Pt her [...] cm in length. ER greater than 95, AL greater than 95. Her2 1+ (this is [...] injections 01/30/23 she spent some time in [facility] maybe last month. They didnt have a bed afer her last hospitalization (for uti) a few weeks ago and so upon discharge went to [facility] Her friends are concerned she will not be safe if she goes home. she seems to have a bad memory. her is also in [facility] continues kisquali, despite our meticulous calender she seems to have trouble remembering to taek this when she was at home. She insists she is getting better and wants to go home. 05/01/23 she is in [facility] she is convinced she will be able to be independent again. She is not walking even with a walker. continues kisquali. anemic on recent labs. 06/12/23 Continues kisquali and arimidex. recent PET/CT. notes interval enlargement of the right breast mass with development of 2 nodules with increased hypermetab (more content not included)...NormalFisher St. Agnes HospitalPhysician Orderon 06-12-2023 Physician [id number]#1.00TIFFNormMarietta Osteopathic ClinicOutside Labson 18-90-4922Nhhwprj Labs [id number]#1.00TIFFNormMarietta Osteopathic ClinicOutside Radiologyon 72-37-1383Gmielzx Radiology [id number]#1.00TIFNoMercy Health St. Charles HospitalALL CBC WITH AUTO DIFFon 16-32-0322VRUJAXWDY ABSOLUTE AUTO0.1NOMS HealthcareBasophils/100 WBC (Bld)1.2 %0.2 - 2.0 %NOMS HealthcareEosinophils/100 WBC (Bld)3.8 %0.9 - 7.0 %[facility] CenterErythrocyte distribution width (RBC) [Ratio]13.4 %11.0 - 15.0 %[facility] CenterHematocrit (Bld) [Volume fraction]29.4 %Low36.0 - 48.0 %[facility] CenterHemoglobin (Bld) [Mass/Vol]9.4 g/dLLow12.0 - 16.0 g/dLMid [facility] Mental Health CenterIMMATURE GRANULOCYTES ABS AUTO0.02NOSoutheast [facility] Hospital Immature granulocytes/100 WBC (Bld)0.4 %0.0 - 0.5 %[facility] CenterInterpretation and review of laboratory resultsAbnormalMid [facility] Mental Health CenterLYMPHOCYTES ABSOLUTE AUTO1.8NOMS [facility] HamiltonLymphocytes/100 WBC (Bld)35.5 %20.5 - 60.0 %[facility] HospitalH (RBC) [Entitic mass]33.5 pg26.7 - 34.0 pgSalem Memorial District HospitalHC (RBC) [Mass/Vol]32.0 g/dL29.9 - 35.2 g/dLSalem Memorial District HospitalV (RBC) [Entitic vol]104.6 oQPyzz69.0 - 99.0 fLMid Missouri Mental Health CenterMONOCYTES ABSOLUTE AUTO0.4[facility] Monocytes/100 WBC (Bld)8.2 %1.7 - 12.0 %[facility] CenterNEUTROPHILS ABSOLUTE AUTO 2.5NOMS [facility] HamiltonNeutrophils/100 WBC (Bld)50.9 %43.0 - 75.0 %[facility] Platelet mean volume (Bld) [Entitic vol]9.2 fLLow9.5 - 13.5 fLMid Missouri Mental Health CenterTBH EO #0.2NOMS [facility] HamiltonTB [id number] [facility] RBC2.81LowNORusk Rehabilitation Center WBC5.0[facility] CenterCLINISYNCNUniversity HospitalGLUCOSE POCT GLUCOMETERSon 04-07-3515Ugmbqqi [Mass/Vol]110 mg/dLMid Missouri Mental Health CenterComment on above:Random Glucose Reference Range is dependent on time and content of last meal. Glucose of more than 200 mg/dL in a nonstressed, ambulatory subject supports the diagnosis of Diabetes Mellitus. [facility] CenterGlucose Glucometer (BldC) [Mass/Vol]Ordered By: Senthil Caldera on 14-58-9555Ticnsno [Mass/Vol]110 mg/dLLouis Stokes [facility] Va [facility] Comment on above:Random Glucose Reference Range is dependent on time and content of last meal. Glucose of more than 200 mg/dL in a nonstressed, ambulatory subject supports the diagnosis of Diabetes Mellitus.ALL CBC WITH AUTO DIFFon 56-82-0685ARYNIMEIK ABSOLUTE AUTO0.1NOMS HealthcareBasophils/100 WBC (Bld)2.0 % 0.2 - 2.0 %NOMS HealthcareEosinophils/100 WBC (Bld)3.3 %0.9 - 7.0 %[facility] CenterErythrocyte distribution width (RBC) [Ratio]13.2 %11.0 - 15.0 %[facility] CenterHematocrit (Bld) [Volume fraction]28.4 %Low36.0 - 48.0 %[facility] CenterHemoglobin (Bld) [Mass/Vol]9.2 g/dLLow12.0 - 16.0 g/dLMid [facility] Center IMMATURE GRANULOCYTES ABS AUTO0.02NOSoutheast Missouri HospitalImmature granulocytes/100 WBC (Bld)0.4 %0.0 - 0.5 %[facility] CenterInterpretation and review of laboratory resultsAbnormalNOSoutheast Missouri HospitalLYMPHOCYTES ABSOLUTE AUTO2.0NOMS [facility] Lymphocytes/100 WBC (Bld)43.8 %20.5 - 60.0 %[facility] HospitalH (RBC) [Entitic mass]33.5 pg26.7 - 34.0 pgSalem Memorial District HospitalHC (RBC) [Mass/Vol]32.4 g/dL29.9 - 35.2 g/dLSalem Memorial District HospitalV (RBC) [Entitic vol]103.3 gFVtrt61.0 - 99.0 fLMid Missouri Mental Health CenterMONOCYTES ABSOLUTE AUTO0.3NOMS HealthcareMonocytes/100 WBC (Bld)6.9 % 1.7 - 12.0 %[facility] CenterNEUTROPHILS ABSOLUTE AUTO2.0NOMS [facility] Neutrophils/100 WBC (Bld)43.6 %43.0 - 75.0 %[facility] CenterPlatelet mean volume (Bld) [Entitic vol]9.0 fLLow9.5 - 13.5 fLMid Missouri Mental Health CenterTBH EO #0.2NOMS HealthcareTBH TCE186KZDS HealthcareTBH RBC2.75LowNOMS HealthcareTBH WBC4.5NOMS HealthcareCLINISYNCNOMS HealthcareInsurance Correspondenceon 33-46-2714Zhnpvlafu [id number]#1.00TIFFSelect Medical Specialty Hospital - [facility] SouthOncology Noteon 87-81-4118Mnvtneho NotePer phone call from Claudette/[facility] [phone] - she wondered if we had the [...] taking it but doesn't have any to take.[facility] SouthComment on above:Result Comment: Electronically Signed By: Jane FARMER, Yolande Houston\.br\Date and Time Signed: 05/20/23 14:48 ESTPhysician Orderon 48-16-1575Hfgkxeflm Order [id number]#1.00Tr[facility]ull Memorial HospitalComment on above:Other Comment: wrong patientPhysician Orderon 05-14-2023 Physician [id number]#1.00TIFFSelect Medical Specialty Hospital - [facility] SouthOutside Labson 80-46-8107Osryowv Labs [id number]#1.00TIFUniversity Hospitals Ahuja Medical CenterOutside [id number]#1.00TIFUniversity Hospitals Ahuja Medical CenterPhysician Orderon 68-10-5273Hygdtkrhq Order [id number]#1.00[facility] HospitalPhysician [id number]#1.00TIFJosh Wilhelm [address]. Agnes HospitalConsent for Treatmenton 91-39-6042Myptxiy for [id number]#1.00[facility] HospitalOncology Noteon 08-76-2004Wczdfvxx NoteOncology Stock Counter Office Visit/Treatment Note Current Patient Status/Reason: Pt in with director surface transportation per pt request for scheduled clinicvisit. Dr. Caldera saw pt. Treatment Plan: PET at [facility] soon, since pt is corrina lift. CBC, CMP, iron studies, Folate, epo,[id number] before f/u ([facility]). Kisqali 200 mg 3 PO daily 3 weeks on 1 week off. Follow-Up Appointment Info/Referrals: F/U in 6 weeks. Resources Offered: Pt voiced no questions or concerns to me when I asked. I instructed that [facility] would call for PET, and lab orders would be faxed to [facility]. Pt voiced understanding of same. Pt also to continue Anastrozole PO daily.[facility] Comment on above:Result Comment: Electronically Signed By: Magda FARMER, Annia\.br\Date and Time Signed: 05/01/23 15:05ESTOncology Progress Noteon 64-75-4688Gklzpgft Progress NotePatient: MARLEN STALEY Age: 72 years [...] cm in length. ER greater than 95, AL greater than 95. Her2 1+ (this is [...] injections 01/30/23 she spent some time in [facility] maybe last month. They didnt have a bed afer her last hospitalization (for uti) a few weeks ago and so upon discharge went to [facility] Her friends are concerned she will not be safe if she goes home. she seems to have a bad memory. her is also in [facility] continues kisquali, despite our meticulous calender she seems to have trouble remembering to taek this when she was at home. She insists she is getting better and wants to go home. 05/01/23 she is in [facility] she is convinced she will be able to be independent again. She is not walking even with a walker. continues kisquali. anemic on recent labs. Review of Systems Constitutional: Negative. Eye: Negative. Ear/Nose/Mouth/Throat: Negative. Respiratory: Negative. Cardiovascular: Negative. Gastrointes (more content not included)...[facility] Outside Labson 10-57-0250Qjjjesy Labs [id number]#1.00TIFFSelect Medical Specialty Hospital - [facility] SouthONC - Otheron 02-20-7197RBD - Other [id number]#1.00[facility] HospitalPhysician Orderon 42-23-0493Glrsqldne Order [id number]#1.00[facility] HospitalConsent for Treatmenton 87-73-6639Xtkhefi for Treatment [id number]#1.00[facility] HospitalOncology Noteon 16-65-8380Sojbuobg NoteOncology Stock Counter Office Visit/Treatment Note Current Patient Status/Reason: Patient here with friend, Karolina for scheduled clinic visit. I accompanied Dr. Caldera and medical student Nj in room. Patient is currently at [facility]. Labs done at [facility] 01/28/2023 reviewed. Disease process and treatment options discussed. Patient informs she like [facility] and having people around to socialize with. Physical exam done. Treatment Plan: continue Kisqali, monthly labs, PET 04/24/2023 Follow-Up Appointment Info/Referrals: after PET Resources Offered: Orders for [facility] regarding monthly labs filled out. Patient denies any questions/concerns at this time.[facility] SouthComment on above:Result Comment: Electronically Signed By: Jane FARMER, Yolande Grande.br\Date and Time Signed: 01/30/23 17:07 EDTOncology Progress Noteon 15-56-1334Jtcdubru Progress NotePatient: MARLEN STALEY Age: 72 years [...] cm in length. ER greater than 95, AL greater than 95. Her2 1+ (this is [...] injections 01/30/23 she spent some time in [facility] maybe last month. They didnt have a bed afer her last hospitalization (for uti) a few weeks ago and so upon discharge went to [facility] Her freinds are concerned she will not be safe if she goes home. she seems to have a bad memory. her is also in [facility] continues kisquali, despite our meticulous calender she seems to have trouble remembering to taek this when she was at home. She insists she is getting better and wants to go home. Review of Systems Constitutional: Negative. Eye: Negative. Ear/Nose/Mouth/Throat: Negative. Respiratory: Negative. Cardiovascular: Negative. Gastrointestinal: Negative. Genitourinary: Negative. Hematology/Lymphatics: Negative. Endocrine: Negative. Immunologic: Negative. Musculoskeletal: Negative. Integumentary: Negative. Neur (more content not included)...[facility] SouthOutside Labs on 61-48-3756Mjvqeaw [id number]#1.00TIFF [facility] SouthOutside Labs [id number]#1.00TIFFNoMercy Health St. Charles HospitalOutside Labson 58-48-5636Zwdfrhl Labs [id number]#1.00TIFUniversity Hospitals Ahuja Medical CenterCoding Queryon 71-35-4300Zxnbtd Query From: Torres FARMER, Monika To: Zaheer [...] Caller Name: MARLEN STALEY; Caller Number: H NoMercy Health St. Charles HospitalON - Otheron 27-61-2497PXB - Other [id number]#1.00CD:127[facility] SouthON - Otheron 76-20-7145DPT - Other [id number]#1.00CD:127[facility] SouthDischarge Instructionson 41-03-5668Nidtfxfva Instructions [id number]#1.00CD:127[facility] SouthTransfer Documentson 75-72-5721Mngymwif Documents [id number]#1.00CD:[address] [place], [place] [address]CHEMISTRYOrdered By: Elma Khan on 21-82-7141Frrahlw [Mass/Vol]111 mg/dL High55 - 99 mg/dLNORTHWEST CENTER FOR BEHAVIOR[facility] POC SubsectionComment on above:Result Comment: Notified RN/MDPOC Device [id number] Interpretation CodeFT POC SubsectionPOC User [id number] Interpretation CodeFT POC SubsectionPOC Username JUAN HENNESSYInvalid Interpretation CodeFT POC SubsectionCapillary Glucose POCon 34-42-8660Fjeuvgn [Mass/Vol]111 mg/rGJitu54-85Pmobwq [facility] Comment on above:Result Comment: Notified RN/MDPerformed By: #### [id number] #### [facility] [address] [place], [place] [address]Jyojsmxvt Note-Nursingon 23-03-6035Odbtjazwv Note-Nursing MARLEN STALEY :1950 Visit Date:12/20/2022 Inpatient Discharge Instructions Your Care Team Admitting Physician - Don YEPEZ MDfo Reason for Your Visit Fall Your Diagnosis [...] Test Results None [facility] Please return to ER if symptoms change or worsen. Previously Scheduled Follow-Up Appointments Saturday 2:45 PM EDT With: Senthil Caldera DO Where: [facility] New Follow Up Appointments after Discharge Follow Up with Azar HANKS, NIKOLE Benedict When: Where: [address] [place] [address]- Medications What How Much When Why Instructions [...] tests. When your results (more content not included)...[facility] Urineon 99-43-3346Fjblvpuf identified Cx Nom (U)Microbiology PROCEDURE: Urine Culture [R1] SOURCE: U CleanCatch BODY SITE: COLLECTED DATE/TIME: 12/20/2022 17:18 EDT RECEIVED DATE/TIME: 12/20/2022 17:49 EDT START DATE/TIME: 12/20/2022 17:49 EDT FREE TEXT SOURCE: Pedro Nava DO, DO, Pedro Mcneill FINAL REPORTS Final Report [] Verified Date/Time: 12/22/2022 07:10 EDT 1,000 cfu/ml Mixed skin contaminants Performing Locations R1: This test was performed at: [facility], [address] [place] [address], [facility] , , OrioraVjbvlrSelect Medical Specialty Hospital - Columbus SouthComment on above:Performed By: #### [id number], [id number] ####[facility] [address] [place], [place] [address]CHEMISTRYOrdered By: Elma BRYANTUsematt on 74-45-1893Asqkiil [Mass/Vol]155 mg/bUCjdn07 - 99 mg/dLNORTHWEST CENTER FOR BEHAVIORAL [facility]ALTH [facility] POC SubsectionComment on above:Result Comment: Notified RN/MDPOC Device [id number] Interpretation CodeFT POC SubsectionPOC User [id number] Interpretation CodeFT POC Subsection POC UsernameROBERTS, DANEKAInvalid Interpretation CodeFT POC SubsectionGlucose [Mass/Vol]129 mg/pAXfis41 - 99 mg/dLNORTHWEST CENTER FOR BE[facility] POC SubsectionComment on above:Result Comment: Cleaned MeterPOC Device [id number] Interpretation CodeFT POC SubsectionPOC User [id number] Interpretation CodeFT POC Subsection POC UsernameMARCHADINORAHLYNInvalid Interpretation CodeNORTHWEST CENTER FOR BEHAVIOR[facility] POC Subsection Capillary Glucose POCon 34-82-8721Zthljqs [Mass/Vol]155 mg/hHZprt91-84YsxaagSt. Elizabeth HospitalComment on above:Result Comment: Notified RN/MDPerformed By: #### [id number], [id number], 8348422, [id number], [id number] #### [facility] [address] [place], [place] [address]Nskavpk [Mass/Vol]129 mg/qHDtbm23-35Wjqopb[address] Comment on above:Result Comment: Cleaned MeterPerformed By: #### [id number], 2959156, 2503403, [id number], [id number] #### [facility] [address] [place] [place], [place] [address]Prsnlii [Mass/Vol]158 mg/aNTbvq64-98Wvuvvt[address] Comment on above:Result Comment: Cleaned MeterPerformed By: #### [id number] #### [facility] [address] [place], [place] [address]Rfwemuk [Mass/Vol]144 mg/oICpho87-55Fizgxc[address] Comment on above:Result Comment: Notified RN/MDPerformed By: #### [id number] #### [facility] [address] [place] [place], [place] [address]Erzbfcsamzdxzetao Note - Case Manageron 12-22-2022 Interdisciplinary Note - Case ManagerCRM spoke with patient. Patient was previous rounded on by Dr Sloan today. Spouse is also patient and is in other bed in room. Patient is alert and oriented. Whiteboard updated and CRM contact # provided. Discussed with patient that [facility] does not have any beds and referral was made to [facility] but they do not take [employer]. Referral was sent to [facility] for both her and her spouse and they have accepted and started precert. Patient becomes upset and states that is to far away and to far for her Family to visit. Discussed only other closer facility is [facility] that takes her and spouse insurance. Patient states she will moose her insurance man and her friend Karolina and discuss withthem. Okay for CRM to call Karolina and daughter and update them as well. She does not want [facility] to cancel [facility] referral yet a she needs to talk to Karolina. CRM called both Karolina and guanaco Cervantes, no answer and left CRM contact number and VM on dc plans. 1406- Daughter Helen called CRM back and is agreeable to [facility] and states it is close for her [...] she is now agreeable to go to [facility] as well as for her spouse to go there and updated her precert was obtained for [facility] and will dc tomorrow as she feels today is to soon for the patient and may upset her too much. 1510- CRM to room and spoke with patient and she is agreeable to go to [facility] SN[facility] now. Discussed precert was obtained and could possible dc today. Patient became upset and said not today she and he spouse need time to get ready and her friend needs to bring her things. Will stay tonight and plan for dc in the am. CRM did explain this to spouse as well and he is agreeable.[facility] - [facility] SouthComment on above:Result Comment: Electronically Signed By: Enoc FARMER, Jolanta\.br\Date and Time Signed: 12/22/22 16:25 EDTProgress Note-Physicianon 19-44-0891Ijunfipx Note-PhysicianAssessment/Plan 1. UTI (urinary tract infection) (N39.0: [...] mg/dL High (12/22/22 07:31:00) POC Device SN: [id number] (12/22/22 07:31:00) POC User ID: [id number] (12/22/22 07:31:00) POC Username: JANELLE RHODES (12/22/22 [...] Oral, Once a day (at bedtime), PRN Charlotte 5/325 Tab, 1 tab(s), Oral, q4hr, PRN [...] a day (at bedtim (more content not included)...NormalSt. Elizabeth HospitalComment on above:Result Comment: Electronically Signed By: Zaheer Sloan DO.br\Date and Time Signed: 12/22/22 09:47 EDTAuto Diffon 07-58-6665Tytagnuav/100 WBC (Bld)2.6 %High 0.0-2.0St. Elizabeth HospitalComment on above:Order Comment: Order Added by Discern Expert.Performed By: #### [id number], 3422251, 4327410, [id number], [id number] #### [facility] [address] [place] [address]Epbknkbvp/Leukocytes Auto (Bld) [Pure # fraction]0.1 E9/LNormal 0.0-0.2FLakeHealth Beachwood Medical CenterComment on above:Order Comment: Order Added by Discern Expert.Performed By: #### 0151594, 4311219, 3926075, [id number], [id number] #### [facility] [address] [place] [address]Lwktwjcyjuj/100 WBC (Bld)2.5 %Normal0.0-8.0St. Elizabeth HospitalComment on above:Order Comment: Order Added by Discern Expert.Performed By: #### 1468622, 3359149, 3536976, [id number], [id number] #### [facility] [address] [place] [address]Gvcadxsdujf/Leukocytes Auto (Bld) [Pure # fraction]0.1 E9/L Normal0.0-0.5FLakeHealth Beachwood Medical CenterComment on above:Order Comment: Order Added by Discern Expert.Performed By: #### [id number], 8035366, 8768842, [id number], [id number] #### [facility] [address] [place] [address]Rcqranwendz/100 WBC (Bld)42.1 %Sodank30.0-50.0St. Elizabeth HospitalComment on above:Order Comment: Order Added by Discern Expert. Performed By: #### 4596306, 1378794, 1114140, [id number], [id number] #### [facility] [address] [place] [address]Afusvekaiub/Leukocytes Auto (Bld) [Pure # fraction]1.4 E9/L Normal1.0-4.0St. Elizabeth HospitalComment on above:Order Comment: Order Added by Discern Expert.Performed By: #### 5915441, 2169577, 8779276, [id number], [id number] #### [facility] [address] [place] [address]Zvplcuuhw/100 WBC (Bld)13.6 %Normal4.0-14.0St. Elizabeth HospitalComment on above:Order Comment: Order Added by Discern Expert.Performed By: #### [id number], 9853263, 7167422, [id number], [id number] #### [facility] [address] [place] [address]Ntlfgzmft/Leukocytes Auto (Bld) [Pure # fraction]0.4 E9/LNormal 0.2-1.0St. Elizabeth HospitalComment on above:Order Comment: Order Added by Discern Expert.Performed By: #### 0724354, 9648111, 5920023, [id number], [id number] #### [facility] [address] [place] [address]Dppgfmgobfp/100 WBC (Bld)39.2 %Ewimnq45.0-75.0St. Elizabeth HospitalComment on above:Order Comment: Order Added by Discern Expert. Performed By: #### 2041369, 7306671, 6360858, [id number], [id number] #### [facility] [address] [place] [address]Bkjetqugmdv/Leukocytes Auto (Bld) [Pure # fraction]1.3 E9/LLow 2.0-7.5FLakeHealth Beachwood Medical CenterComment on above:Order Comment: Order Added by Discern Expert.Performed By: #### 9846583, 1489540, 2860883, [id number], [id number] #### [facility] [address] [place], [place] [address]NENae 37-51-5821Spmiv gap [Moles/Vol]11 mmol/LNormal6-16St. Elizabeth HospitalComment on above:Performed By: #### 9724258, 4574371, 9644399, 189252930, [id number] #### [facility] [address] [place], [place] [address]Imavfcb [Mass/Vol]8.9 mg/dLNormal8.9-11.1FLakeHealth Beachwood Medical CenterComment on above:Performed By: #### 9490807, 0784747, 9639456, 718701524, [id number] #### [facility] [address] [place], [place] [address]Hwkkbnbm [Moles/Vol]112 mmol/QBrax667-611RwtejpSt. Elizabeth HospitalComment on above:Performed By: #### 1161672, 7544998, 2474254, 474496606, 33927613 #### [facility] [address] [place], [place] [address]WX0 [Moles/Vol]22 mmol/AUimsld45-69BcbjhtSt. Elizabeth Hospital Comment on above:Performed By: #### 8819192, 1144151, 1481191, 122236911, 57944363 #### [facility] [address] [place], [place] [address]Pahyozuoqa [Mass/Vol]1.4 mg/dLHigh0.5-1.3FLakeHealth Beachwood Medical CenterComment on above:Performed By: #### 8218051, 4842299, 6614729, 962503005, 09043216 #### [facility] [address] [place], [place] [address]Coitqqv [Mass/Vol]102 mg/yYUeplus74-659CgdwrmSt. Elizabeth HospitalComment on above:Result Comment: If this glucose result represents a fasting glucose, interpretation should refer tothe following reference range: 55-99 mg/dLPerformed By: #### 4396272, 9864554, 8999087, 548313711, 46832967 #### [facility] [address] [place], [place] [address]Ppcrdwteo [Moles/Vol]4.0 mmol/LNormal3.5-5.3FLakeHealth Beachwood Medical CenterComment on above:Performed By: #### 6703987, 8167632, 3371996, 059990087, 52311041 #### [facility] [address] [place], [place] [address]Dxuduo [Moles/Vol]141 mmol/XRblryr987-801FzdixoSt. Elizabeth HospitalComment on above:Performed By: #### 7380360, 3113685, 3044803, 391347897, 25451441 #### [facility] [address] [place], [place] [address]Wzeb nitrogen [Mass/Vol]36 mg/dLHigh5-21St. [facility] HospitalComment on above:Performed By: #### 3295291, 0347032, 9685007, 885531983, 51083811 #### [facility] [address] [place], [place] [address]Rgtf nitrogen/Creatinine [Mass ratio]26 No CodtpOrdw51-80FqlrxrSt. Elizabeth HospitalComment on above:Performed By: #### 9316042, 9797737, 9970404, 273857424, 80807426 #### [facility] [address] [place], [place] [address]O Urineon 01-41-6400Hmolcury identified Cx Nom (U)Microbiology PROCEDURE: Urine Culture [...] Locations R1: This test was performed at: [facility], [address] [place] [address], [address]- , , GiybbxMgtcwgSt. Elizabeth HospitalComment on above:Performed By: #### 3383765, 0721622, 0371555, 827625333, 34201676 #### [address] [address]CMO w/ Auto Diffon 42-22-8682Cygbgiffcbn distribution width (RBC) [Ratio]18.4 %High10.9-14.2FLakeHealth Beachwood Medical CenterComment on above: Performed By: #### 4154065, 2198499, 6568923, 498090770, 11516727 #### [address] [address]Cjhycsmubp (Bld) [Volume fraction]26.8 %Low34.0-46.0[facility] HospitalComment on above:Performed By: #### 0353222, 7262681, 5943239, 235627303, 19570560 #### [address] [address]Eidkgswesd (Bld) [Mass/Vol]9.3 g/dLLow12.0-16.0[facility] HospitalComment on above:Performed By: #### 7842567, 0018968, 6729778, 061584650, 18683759 #### [address] [address]VCZ (RBC) [Entitic mass]34.3 jrSrwp77.0-34.0[facility] HospitalComment on above:Performed By: #### 3197814, 8491187, 6950340, 909809924, 26162309 #### [address] [address]TDBQ (RBC) [Mass/Vol]34.8 g/pTFegxrl73.4-36.0[facility] HospitalComment on above:Performed By: #### 1460864, 0385632, 9696656, 753435836, 03149875 #### [facility] [address] [place], [place] [address]USP (RBC) [Entitic vol]98.6 lQFmdely26.0-100.0[facility] HospitalComment on above:Performed By: #### 4523509, 2848916, 1109666, 517979679, 55953104 #### [facility] [address] [place], [place] [address]Hzxarcyo mean volume (Bld) [Entitic vol]6.8 fLNormal6.4-10.8 [facility] HospitalComment on above:Performed By: #### 7488939, 4309843, 9299206, 974825101, 53117489 #### [facility] [address] [place], [place] [address]Woqrcmuco (Bld) [#/Vol]201.0 E9/WEmdfrf490.0-500.0[facility] HospitalComment on above:Performed By: #### 3500998, 1759462, 8449562, 708834691, 96053991 #### [facility] [address] [place] [address]EWM (Bld) [#/Vol]2.7 E12/LLow4.3-5.9[facility] Comment on above:Performed By: #### 2870436, 0452173, 2387926, 555345102, 66746596 #### [facility] [address] [place], [place] [address]KXU corrected for nucl RBC Auto (Bld) [#/Vol]3.3 E9/LLow 4.0-11.0[facility] HospitalComment on above:Performed By: #### 4383398, 8806725, 9196426, 257656583, 41840253 #### [facility] [address] [place], [place] [address]GAVTZXDXEHkkjkzh By: SYSTEM SYSTEM on 07-94-0208Xwojg gap [Moles/Vol]11 mmol/LNormal6 - 16 mEq/LFTMC RemisolCalcium [Mass/Vol]8.9 mg/dL Normal8.9 - 11.1 mg/dLNORTHWEST [facility] RemisolChloride [Moles/Vol]112 mmol/BJwkj869 - 111 mmol/LFTMC RemisolCO2 [Moles/Vol]22 mmol/JBrdxrm30 - 31 mmol/LFTMC Remisol Creatinine [Mass/Vol]1.4 mg/dLHigh0.5 - 1.3 mg/dLNORTHWEST C[facility] RemisolGFR/1.73 sq M.predicted among non-blacks MDRD (S/P/Bld) [Vol rate/Area]40 mL/min/1.73 m2Low >=59mL/min/1.73 m2[facility] Chem SGlucose [Mass/Vol]102 mg/vLMljvdm11 - 199 mg/dLNORTHWEST CENTER [facility] RemisolPotassium [Moles/Vol]4.0 mmol/LNormal3.5 - 5.3 mmol/LFTMC RemisolSodium [Moles/Vol]141 mmol/EXgqtce532 - 145 mmol/LFTMC RemisolUrea nitrogen [Mass/Vol] 36 mg/dLHigh5 - 21 mg/dLNORTHWEST C[facility] RemisolUrea nitrogen/Creatinine [Mass ratio]26 mg/inUcss37 - 20NOR[facility] RemisolCHEMISTRYOrdered By: Gavino Lyle on 59-43-9324IiH2r (Bld) [Mass fraction]7.1 %High<=5.9%[facility] ChemAutoSSCapillary Glucose POCon 36-53-6721Pejpggh [Mass/Vol]127 mg/gADcqw36-88ZgxglkSt. Elizabeth HospitalComment on above:Result Comment: Notified RN/MDPerformed By: #### [id number] #### [facility] [address] [place], [place] [address]Gqehtgm [Mass/Vol]160 mg/dNCyjr42-43BdkjoxSt. [facility] Comment on above:Result Comment: Notified RN/MDPerformed By: #### [id number] ####[facility] [address] [place] [address] Glucose [Mass/Vol]132 mg/xFQppq49-33LdopaeSt. Elizabeth HospitalComment on above: Result Comment: Notified RN/MDPerformed By: #### 7491346, 0224374, 8947858, 463694890, 96784682 #### [facility] [address] [place], [place] [address]Fmrtdas [Mass/Vol]115 mg/cURkiw90-87WefnhbSt. [facility] Hospital Comment on above:Result Comment: Notified RN/MDPerformed By: #### [id number] #### [facility] [address] [place], [place] [address]JLOESAKBEQZtyvpzs By: SYSTEM SYSTEM on 88-38-3371Jqtcwjgme/100 WBC (Bld)2.6 %High0.0 - 2.0 %[facility] HemeAutoSSBasophils/Leukocytes Auto (Bld) [Pure # fraction]0.1 E9/LNormal0.0 - 0.2 E9/LFTMC HemeAutoSSEosinophils/100 WBC (Bld)2.5 %Normal0.0 - 8.0 %[facility] HemeAutoSSEosinophils/Leukocytes Auto (Bld) [Pure # fraction]0.1 E9/LNormal0.0 - 0.5 E9/LFTMC HemeAutoSSLymphocytes/100 WBC (Bld)42.1 %Blnrgx00.0 - 50.0 %[facility] HemeAutoSSLymphocytes/Leukocytes Auto (Bld) [Pure # fraction]1.4 E9/LNormal1.0 - 4.0 E9/LFTMC HemeAutoSSMonocytes/100 WBC (Bld)13.6 %Normal4.0 - 14.0 %[facility] HemeAutoSSMonocytes/Leukocytes Auto (Bld) [Pure # fraction]0.4 E9/LNormal0.2 - 1.0 E9/LFTMC HemeAutoSSNeutrophils/100 WBC (Bld)39.2 %Aqrage65.0 - 75.0 %[facility] HemeAutoSSNeutrophils/Leukocytes Auto (Bld) [Pure # fraction]1.3 E9/LLow2.0 - 7.5 E9/LFTMC HemeAutoSSHEMATOLOGYOrdered By: Helen Durán on 54-91-8067Kgneiliahnz distribution width (RBC) [Ratio]18.4 %High 10.9 - 14.2 %[facility] HemeAutoSSHematocrit (Bld) [Volume fraction]26.8 %Low34.0 - 46.0 %[facility] HemeAutoSSHemoglobin (Bld) [Mass/Vol]9.3 g/dLLow12.0 - 16.0 gm/dLFTMC HemeAutoSSMCH (RBC) [Entitic mass]34.3 ubBdyu97.0 - 34.0 pgFTMC HemeAutoSSMCHC (RBC) [Mass/Vol]34.8 g/vZVsqorm38.4 - 36.0 gm/dLFTMC HemeAutoSSMCV (RBC) [Entitic vol]98.6 xXDhxnzq22.0 - 100.0 fLFTMC HemeAutoSSPlatelet mean volume (Bld) [Entitic vol]6.8 fLNormal6.4 - 10.8 fLFTMC HemeAutoSSPlatelets (Bld) [#/Vol]201.0 E9/DSvtqad160.0 - 500.0 E9/LFTMC HemeAutoSSRBC (Bld) [#/Vol]2.7 E12/LLow4.3 - 5.9 E12/LFTMC HemeAutoSSWBC corrected for nucl RBC Auto (Bld) [#/Vol]3.3 E9/LLow4.0 - 11.0 E9/LFTMC NfkkBczxBXWgoE6eyo 92-94-2501BrB3q (Bld) [Mass fraction]7.1 %High<=5.9St. [facility] HospitalComment on above: Performed By: #### 9583394, 7920021, 0831487, 235175343, 20245494 #### [facility] [address] [place] [address]Tjjmarsfs Correspondence Officeon 90-93-4369Yguurmmch Correspondence [id number]#1.00CD:127Fire[facility] Medical CenterInterdisciplinary Note - OTon 12-21-2022 Interdisciplinary Note - OTOT AM-PAC 6 Clicks Score: 1624= SNF. Pt completed sit to stand transfers [...] and safety with self care tasks and transfers.[facility] Interdisciplinary Note - Social Workeron 83-68-1382Hgjlpgopzwuqplgkv Note - Social WorkerThis SW responded to [...] this time. SW will remain available as needed.[facility] SouthMessage from Medicareon [id number] from Medicare [id number]#1.00CD:[address] Charles HospitalProgress Note-Physicianon 46-34-1692Iqjggged Note-PhysicianAssessment/Plan 1. UTI (urinary tract infection) (N39.0: Urinary tract infection, site not specified) ? Urine culture positive for E. coli, pansensitive ? We will continue Keflex as patient tolerated in the past ? We will continue to monitor for signs of improvement Ordered: Initial Hospital Care/Day Moderate 55 Minutes 54345 Sbsq Hospital Care/Day Straight Fwd 25 Minutes 25250 2. Age-related cognitive decline (R41.81: Age-related cognitive [...] 06:07:00) Lymph Auto: 42.1 % (12/21/22 06:07:00) [place] Auto: 13.6 % (12/21/22 06:07:00) Eos Auto: 2.5 % (12/21/22 06:07:00) Basophil Auto: 2.6 % High (12/21/22 06:07:00) Neutro Absolute: 1.3 E9/L Low (12/21/22 06:07:00) Lymph Absolute: 1.4 E9/L (12/21/22 06:07:00) [place] Absolute: 0.4 E9/L (12/21/22 06:07:00) Eos Absolute: [...] Lvl: 3.5 gm/dL (12/20 (more content not included)...[facility] SouthComment on above:Result Comment: Electronically Signed By: Zaheer Sloan DO\.br\Date and Time Signed: 12/21/22 14:15 EDTeGFRon 12-21-2022 GFR/1.73 sq M.predicted among non-blacks MDRD (S/P/Bld) [Vol rate/Area]40 mL/min/1.73 m2Low>=59St[facility] HospitalComment on above:Order Comment: Order added by Discern Expert.Result Comment: Chronic kidney disease could be indicated at eGFR's of less than 60 mL/min/1.73m2. Kidney failure is indicated at less than 15 mL/min/1.73m2.Performed By: #### 4175235, 5556584, 8406129, 038239128, 83357486 #### [facility] [address] [place] [address]Hqin Diffon 79-03-6831Reegskfby/100 WBC (Bld)3.5 %High0.0-2.0 [facility] HospitalComment on above:Order Comment: Order Added by Discern Expert.Performed By: #### 4124314, 8825103, 9617322, 268038008, 13589795 #### [facility] [address] [place] [address]Qeckoqude/Leukocytes Auto (Bld) [Pure # fraction]0.1 E9/LNormal 0.0-0.2FLakeHealth Beachwood Medical CenterComment on above:Order Comment: Order Added by Discern Expert.Performed By: #### 4045870, 6780939, 2007814, 023341969, 39308216 #### [facility] [address] [place] [address]Kbstibcjmtd/100 WBC (Bld)1.3 %Normal0.0-8.0[facility] HospitalComment on above:Order Comment: Order Added by Discern Expert.Performed By: #### 7256657, 8187464, 2343962, 276046317, 80767182 #### [facility] [address] [place], [place] [address]Fpfbfksouuq/Leukocytes Auto (Bld) [Pure # fraction]0.0 E9/L Normal0.0-0.5FLakeHealth Beachwood Medical CenterComment on above:Order Comment: Order Added by Discern Expert.Performed By: #### 8105625, 2396643, 2078987, 179459498, 73380096 #### [facility] [address] [place] [address]Lrqaioxikbi/100 WBC (Bld)28.4 %Iqjwab44.0-50.0[facility] HospitalComment on above:Order Comment: Order Added by Discern Expert. Performed By: #### 5723676, 8804951, 7628189, 521084512, 55378458 #### [facility] [address] [place] [address]Iqtdeycnyvo/Leukocytes Auto (Bld) [Pure # fraction]1.1 E9/L Normal1.0-4.0[facility] HospitalComment on above:Order Comment: Order Added by Discern Expert.Performed By: #### 1981315, 5566236, 1731705, 324474438, 90739301 #### [facility] [address] [place] [address]Mfinokvbv/100 WBC (Bld)12.5 %Normal4.0-14.0[facility] HospitalComment on above:Order Comment: Order Added by Discern Expert.Performed By: #### 3791183, 5769268, 3000931, 429850354, 58092939 #### [facility] [address] [place] [address]Waoyrfmjm/Leukocytes Auto (Bld) [Pure # fraction]0.5 E9/LNormal 0.2-1.0[facility] HospitalComment on above:Order Comment: Order Added by Discern Expert.Performed By: #### 6103177, 1463124, 5709006, 901392265, 70870699 #### [facility] [address] [place] [address]Ezefddthdnu/100 WBC (Bld)54.3 %Upldgy08.0-75.0[facility] HospitalComment on above:Order Comment: Order Added by Discern Expert. Performed By: #### 2721500, 2848827, 8757169, 479949274, 69867367 #### [facility] [address] [place] [address]Fwrbqghikro/Leukocytes Auto (Bld) [Pure # fraction]2.1 E9/L Normal2.0-7.5FLakeHealth Beachwood Medical CenterComment on above:Order Comment: Order Added by Discern Expert.Performed By: #### 5639860, 1357139, 0545379, 438623416, 60709317 #### [facility] [address], [place] [address]XQIkz 39-41-4301Vlywgkhcdn [Mass/Vol]1.3 mg/dLNormal0.5-1.3 [facility] HospitalComment on above:Performed By: #### 1017771, 8495179, 1964004, 366167583, 84015632 #### [facility] [address] [place], [place] [address]Ikpb nitrogen [Mass/Vol]36 mg/dLHigh5-21St. [facility] HospitalComment on above:Performed By: #### 7937151, 3595581, 6015544, 424745400, 46079501 #### [facility] [address] [place], [place] [address]Hdnt nitrogen/Creatinine [Mass ratio]28 No UjjvsOuxa48-52YjlwjySt. Elizabeth HospitalComment on above:Performed By: #### 0043375, 5620839, 1194560, 884307060, 36769999 #### [facility] [address] [place], [place] [address]Nxyjk gap [Moles/Vol]13 mmol/LNormal6-16St. [facility] HospitalComment on above:Performed By: #### 3072092, 6637496, 3994553, 628460761, 81222125 #### [facility] [address], [place] [address]Xxyjawg [Mass/Vol]9.6 mg/dLNormal8.9-11.1FLakeHealth Beachwood Medical CenterComment on above:Performed By: #### 4895217, 3366196, 3656583, 609006936, 12224959 #### [facility] [address], [place] [address]Iyqnlvkh [Moles/Vol]108 mmol/TAapndb430-651PkvaklSt. Elizabeth HospitalComment on above:Performed By: #### 5067193, 4201021, 1645645, 475490859, 29306560 #### [facility] [address] [place], [place] [address]IR8 [Moles/Vol]21 mmol/KJhrohn58-35SezuluSt. [facility] Hospital Comment on above:Performed By: #### 8881841, 3722606, 5987277, 971084752, 05712168 #### [facility] [address], [place] [address]Gvireds [Mass/Vol]136 mg/bCMwnolr39-736JehlygSt. Elizabeth HospitalComment on above:Result Comment: If this glucose result represents a fasting glucose, interpretation should refer tothe following reference range: 55-99 mg/dLPerformed By: #### 8009837, 1938784, 5746148, 013641076, 74940111 #### [facility] [address] [place], [place] [address]Febxwnizx [Moles/Vol]4.2 mmol/LNormal3.5-5.3FLakeHealth Beachwood Medical CenterComment on above:Performed By: #### 9321020, 5001981, 9938416, 815465276, 95006889 #### [facility] [address] [place], [place] [address]Mepxed [Moles/Vol]138 mmol/ZXflocb173-450CthrfbSt. Elizabeth HospitalComment on above:Performed By: #### 7315373, 9223882, 9775772, 135537448, 89480166 #### [facility] [address] [place], [place] [address]SCW w/ Auto Diffon 47-08-9402Tqrmsbvdbvw distribution width (RBC) [Ratio]19.0 %High10.9-14.2FLakeHealth Beachwood Medical CenterComment on above: Performed By: #### 7042723, 6816982, 5427060, 878528558, 87964053 #### [facility] [address] [place], [place] [address]Jxqyouzbrx (Bld) [Volume fraction]31.3 %Low34.0-46.0St. [facility] HospitalComment on above:Performed By: #### 4515114, 0014160, 8746086, 433449722, 61906938 #### [facility] [address] [place] [address]Jwjaxwddyf (Bld) [Mass/Vol]10.4 g/dLLow12.0-16.0St. [facility] HospitalComment on above:Performed By: #### 9257365, 6499532, 7712774, 833405548, 49161540 #### [facility] [address] [place] [address]PHV (RBC) [Entitic mass]33.3 fkArlgzi53.0-34.0St. [facility] HospitalComment on above:Performed By: #### 9596572, 0197215, 5678088, 807701430, 54114119 #### [facility] [address] [place] [address]AHNI (RBC) [Mass/Vol]33.3 g/hZZpblvi90.4-36.0St. [facility] HospitalComment on above:Performed By: #### 0924727, 4076239, 4335795, 037755820, 09721287 #### [facility] [address] [place] [address]QDP (RBC) [Entitic vol]99.8 zGMigdhc69.0-100.0St[facility] HospitalComment on above:Performed By: #### 6566929, 0562814, 4688228, 440823181, 29594649 #### [facility] [address] [place] [address]Ykrywcsn mean volume (Bld) [Entitic vol]6.8 fLNormal6.4-10.8 [facility] HospitalComment on above:Performed By: #### 7494470, 5226519, 2125942, 104965994, 10673889 #### [facility] [address] [place], [place] [address]Nydxohdtg (Bld) [#/Vol]212.0 E9/IPqpgma738.0-500.0St. [facility] HospitalComment on above:Performed By: #### 1912484, 8732007, 5006978, 357585895, 69982161 #### [facility] [address] [place], [place] [address]PLZ (Bld) [#/Vol]3.1 E12/LLow4.3-5.9[facility] Comment on above:Performed By: #### 2876555, 4270790, 2454730, 851603336, 57342848 #### [facility] [address] [place], [place] [address]DHP corrected for nucl RBC Auto (Bld) [#/Vol]3.9 E9/LLow 4.0-11.0[facility]. [facility] HospitalComment on above:Performed By: #### 9850127, 3918513, 8731861, 890663629, 83735225 #### [facility] [address] [place], [place] [address]LMMWEASYVLrsyohf By: SYSTEM SYSTEM on 45-81-4900Rbrupbkn I.cardiac [Mass/Vol]10.20 pg/wSUpswaq44.10 - 27.10 pg/mLFTMC RemisolAlbumin [Mass/Vol]3.5 g/dLNormal3.3 - [...] [Mass/Vol]9.6 mg/dLNormal8.9 - 11.1 mg/dLFTMC RemisolChloride [Moles/Vol]108 mmol/SSrrpoc572 - 111 mmol/LFTMC RemisolCO2 [Moles/Vol]21 mmol/L Nlustp30 - 31 mmol/LFTMC RemisolCreatinine [Mass/Vol]1.3 mg/dLNormal0.5 - 1.3 mg/dLFTMC RemisolGFR/1.73 sq M.predicted among non-blacks MDRD (S/P/Bld) [Vol rate/Area]43 mL/min/1.73 m2Low>=59mL/min/1.73 m2FT[facility] Chem SGlobulin (S) [Mass/Vol]3.8 g/dLNormal1.4 - 4.0 gm/dLFTMC RemisolGlucose [Mass/Vol]136 mg/dL Urmzoi06 - 199 mg/dLFTMC RemisolPotassium [Moles/Vol]4.2 mmol/LNormal3.5 - 5.3 mmol/LFTMC RemisolProtein [Mass/Vol]7.3 g/dLNormal6.0 - 7.8 gm/dLFTMC Remisol Sodium [Moles/Vol]138 mmol/DPeyqgq185 - 145 mmol/LFTMC RemisolTroponin I.cardiac [Mass/Vol]9.80 pg/mLLow10.10 - 27.10 pg/mLFTMC RemisolUrea nitrogen [Mass/Vol] 36 mg/dLHigh5 - 21 mg/dLFTMC RemisolUrea nitrogen/Creatinine [Mass ratio]28 mg/abLoya49 - 20FT[facility] RemisolConsent for Treatmenton 81-82-8742Steiolc for [id number]#1.00CD:127[facility] SouthDischarge Instructionson 62-49-6993Rwvxmxrbb Instructions [id number]#1.00CD:127[facility] Clinical Summaryon 43-12-7118KN Clinical Summary [place] [id number] ED Clinical Summary Person Information Name: [facility] Age: 72 Years : 1950 Sex: Female Language: Lao PCP: Rickey Askew MD Marital Status: Phone: [phone] MRN: Visit Id: Visit Reason: Dysuria; Weakness or fatigue; UTI Speciality: Acuity: 3 Enc Type: Inpatient Med Service: Medical Arrival: 12/20/2022 15:04:00 Discharge: LOS: 000 03:52 Checkin: 12/20/2022 15:04:00 Checkout: 12/20/2022 18:56:43 Dispo Type: Admitted as IP to this [facility] EVENTS: Event Name Event Status Request [...] 18:40:53 Patient Care Request 12/20/2022 18:52:04 ADDRESS: [address] [place] [address] [address] [place] [phone] PHYS DOC NOTES: MEDICAL INFORMATION: Prescriptions Given: [...] cognitive decline; 3:History of breast cancer; 4:HTN(hypertension); 5:HypercholesteremiaNormalCape Fear Valley [facility] Hospitaler [facility] Clinical Summary [place] [id number] ED Clinical Summary Person Information Name: MARLEN STALEY/Savita Age: 72 Years : 1950 Sex: Female Language: Lao PCP: Rickey Askew MD Marital Status: Phone: [phone] MRN: Visit Id: Visit Reason: Medical problem [...] 12/20/2022 00:50:56 12/20/2022 00:50:56 12/20/2022 00:50:56 ADDRESS: [address] [place] [address] [place] [phone] PHYS DOC NOTES: MEDICAL INFORMATION: Prescriptions Given: New Medications [facility], [address] [place], [place] [id number], [phone] cephalexin (Keflex 500 mg Cap) 1 Capsules [...] EDUCATION INFORMATION: Instructions: Urinary Tract Infection, Adult, Sfoe-hy-Onew; Anemia; Dehydration, Adult, Zrkx-qi-Wgks Follow up: With: Address: When: Rickey Askew [address] [place] [address] Business (1) In 2 days 12/21/2022 DIAGNOSIS: 1:Generalized weakness; 2:Frequent falls; 3:Anemia; 4:Dehydration; 5:Urinary tract infectionVitaly Doe Medical CenterED Note-Physicianon 71-11-4355MC Note-PhysicianBasic Information Time Seen: Pedro Nava DO 12/20/2022 15:31 Chief Complaint Pt came in via [facility] for dysuria and weakness. Pt states [...] daughter wants her to go into a half-way as they can no longer be cared [...] refills Vitamin D3 20 (more content not included)...[facility] Comment on above:Result Comment: Electronically Signed By: Pedro Nava DO\.br\Date and Time Signed: 12/20/22 19:22 EDTED Note-PhysicianBasic Information Time Seen: David Tong MD 12/19/2022 20:40 Chief Complaint says she has been getting increasingly weaker. on wait list for [facility] History of Present Illness 72-year-old female [...] to be in assisted living at the [facility]. She does have a history of [...] day(s), # 28 cap(s), Refills(s) 0, Pharmacy: [facility], 167.6, cm, 12/19/22 20:43:00 EDT, Height/Length [...] Askew In 2 days 12/21/2022 EDT [address] [place] [address] [facility](1) Additional Instructions: Patient Education Urinary Tract Infection, Adult, Qbzw-rb-Kpab Anemia Dehydration, Adult, Hlzl-ka-Mxkh Problem List/Past Medical History Ongoing Age-related cognitive decline Axillary adenopathy Chronic edema Diabetes History of breast cancer History of healed fragility fracture HTN (hypertension) Hypercholesteremia Invasive ductal carcinoma of right breast Multiple closed fractures of pelvis with stable disruption of pelvic ring with routine healing, subsequent encounter Vitamin D deficiency Historical No qualifying data Procedure/Surgical (more content not included)...[facility]:Result Comment: Electronically Signed By: David Tong MD\.br\Date and Time Signed: 12/20/22 00:40 EDTED Patient Education Noteon [id number] Patient Education NoteNormCl[facility] Patient Education NoteHematology Anemia Anemia is [...] Follow these instructions at home: ? Take hvhk-mll-kymvsxe and prescription medicines only as told by [...] provider. Document Revised: 02/20/2022 Document Reviewed: 03/15/2020 [employer] Patient Education ? 2022 [employer] Nutrition Dehydration, Adult Dehydration is condition [...] Peeing (urinating) a lot. (more content not included)...[facility] Patient Summaryon [id number] Patient Summary [place] [id number] Patient Discharge Instructions Person Information Name: MARLEN STALEY Age: 72 Years Arrival Date: 12/20/2022 15:04:00 Discharge Diagnosis: 1:UTI (urinary tract infection); 2:Age-related cognitive decline; 3:History ofbreast cancer; 4:HTN (hypertension); 5:Hypercholesteremia Primary Care Physician: Azar HANKS, Rickey Lynn Provider Information Primary Provider: Pedro Nava DO Advanced Route Sales Representative:None The exam and treatment you received in the Emergency Department were for an urgent problem and are not intended as complete care. It is important that you follow up with a doctor, nurse practitioner,or physician?s environmental emergencies assistant for ongoing care. [...] opioids can be used to help relieve sfdyjstc-sb-uksies pain and are often prescribed following a [...] be struggling with addiction, tell your health urgent care physician and ask for guidance or call SAMHSA?S National Helpline at 0-901-878-HELP. v Source: US Department of Health and Human Services/[facility] (more content not included)...[facility] Patient Summary [address] [address] Patient Discharge Instructions Person Information Name: MARLEN STALEY Age: 72 Years Arrival Date: 12/19/2022 20:39:01 Discharge Diagnosis: 1:Generalized weakness; 2:Frequent falls; 3:Anemia; 4:Dehydration; 5:Urinary tract infection Primary Care Physician: Azar HANKS, Rickey Lynn Provider Information Primary Provider: David Tong MD Advanced Route Sales Representative:None The exam and treatment you received in the Emergency Department were for an urgent problem and are not intended as complete care. It is important that you follow up with a doctor, nurse practitioner,or physician?s environmental emergencies assistant for ongoing care. [...] Instructions: With: Address: When: [place] [address] Business (1) In 2 days 12/21/2022 In the event that this physician does not participate in your insurance network, please consult with your insurance company to find a nearby participating provider. Patient Education Materials: Urinary Tract Infection, Adult, Ndqi-ig-Hlmc; Anemia; Dehydration, Adult, Bcgn-wm-Odit A MESSAGE TO ALL PATIENTS REGARDING OPIOIDS PRESCRIPTION OPIOIDS: WHAT YOU NEED TO KNOW Prescription opioids can be used to help relieve mkefjbyr-gr-eszbgp pain and are often prescribed following a [...] tell your health care (more content not included)...[facility] SouthHEMATOLOGYOrdered By: MENA SOCIAL SYSTEM on 04-63-5989Szrxnfsks/100 WBC (Bld)3.5 %High0.0 - 2.0 %[facility] HemeAutoSSBasophils/Leukocytes Auto (Bld) [Pure # fraction]0.1 E9/LNormal0.0 - 0.2 E9/LFTMC HemeAutoSSEosinophils/100 WBC (Bld)1.3 %Normal0.0 - 8.0 %[facility] HemeAutoSSEosinophils/Leukocytes Auto (Bld) [Pure # fraction]0.0 E9/LNormal0.0 - 0.5 E9/LFTMC HemeAutoSSLymphocytes/100 WBC (Bld)28.4 %Tobrgt55.0 - 50.0 %[facility] HemeAutoSSLymphocytes/Leukocytes Auto (Bld) [Pure # fraction]1.1 E9/LNormal1.0 - 4.0 E9/LFT[facility] HemeAutoSSMonocytes/100 WBC (Bld)12.5 %Normal4.0 - 14.0 %[facility] HemeAutoSSMonocytes/Leukocytes Auto (Bld) [Pure # fraction]0.5 E9/LNormal0.2 - 1.0 E9/LFTMC HemeAutoSSNeutrophils/100 WBC (Bld)54.3 %Zvwqaq66.0 - 75.0 %[facility] HemeAutoSSNeutrophils/Leukocytes Auto (Bld) [Pure # fraction]2.1 E9/LNormal2.0 - 7.5 E9/LFT[facility] HemeAutoSSHEMATOLOGYOrdered By: Gavino Lyle on 12-20-2022 Erythrocyte distribution width (RBC) [Ratio]19.0 %High10.9 - 14.2 %[facility] HemeAutoSSHematocrit (Bld) [Volume fraction]31.3 %Low34.0 - 46.0 %[facility] HemeAutoSSHemoglobin (Bld) [Mass/Vol]10.4 g/dLLow12.0 - 16.0 gm/dLFTMC HemeAutoSSMCH (RBC) [Entitic mass]33.3 frPpvwli24.0 - 34.0 pgFTULSA SPINE & [facility] HemeAutoSSMCHC (RBC) [Mass/Vol]33.3 g/pGRcyogi73.4 - 36.0 gm/dLNORTHWEST [facility] HemeAutoSSMCV (RBC) [Entitic vol]99.8 iGWtwokq87.0 - 100.0 fLNORTHWEST CENTER FOR [facility] HemeAutoSSPlatelet mean volume (Bld) [Entitic vol]6.8 fLNormal6.4 - 10.8 fLNORTHWEST CENTER [facility] HemeAutoSSPlatelets (Bld) [#/Vol]212.0 E9/QIdycwr342.0 - 500.0 E9/[facility] HemeAutoSSRBC (Bld) [#/Vol]3.1 E12/LLow4.3 - 5.9 [facility] HemeAutoSSWBC corrected for nucl RBC Auto (Bld) [#/Vol]3.9 E9/LLow4.0 - 11.0 /[facility] HemeAutoSSHep Func Panelon 12-20-2022 Bilirubin.direct [Mass/Vol]0.1 mg/dLNormal0.1-0.4FLakeHealth Beachwood Medical Center Comment on above:Performed By: #### 9448301, 5321608, 8019131, 676003989, 10915564 #### [facility] [address] [place] [place], [place] [address]Aewcxsdtr.indirect [Mass or moles/Vol]0.8 mg/dLNormal0.1-0.9 [facility] HospitalComment on above:Performed By: #### 2576692, 4482248, 1312200, 277679528, 52263539 #### [facility] [address] [place], [place] [address]Iwsldld [Mass/Vol]3.5 g/dLNormal3.3-5.0St. [facility] HospitalComment on above:Performed By: #### 0463390, 1469563, 8531993, 318790464, 16820793 #### [facility] [address] [place], [place] [address]Dyhteoa/Globulin (S) [Mass conc ratio]0.9Low1.1-2.2FLakeHealth Beachwood Medical CenterComment on above:Performed By: #### 5403147, 0952272, 3632014, 712258305, 82444838 #### [facility] [address] [place], [place] [address]MTU [Catalytic activity/Vol]101 Int._Unit/DHrqv58-85BimvisSt. Elizabeth HospitalComment on above:Performed By: #### 7052558, 7551616, 6810580, 038613465, 24120006 #### [facility] [address] [place] [address]FPG No additional P-5'-P [Catalytic activity/Vol]20 Int._Unit/L Normal6-46St. [facility] HospitalComment on above:Performed By: #### 2337013, 9583382, 3391575, 197540306, 94498904 #### [facility] [address] [place], [place] [address]MTM [Catalytic activity/Vol]18 Int._Unit/LNormal5-43St. [facility] HospitalComment on above:Performed By: #### 9697185, 5623790, 6447395, 617755366, 08639670 #### [facility] [address] [place] [address]Tweoxguet [Mass/Vol]0.9 mg/dLNormal0.0-1.1FLakeHealth Beachwood Medical CenterComment on above:Performed By: #### 3376249, 8387134, 5777498, 148279188, 47905913 #### [facility] [address] [place], [place] [address]Sncvhkmf (S) [Mass/Vol]3.8 g/dLNormal1.4-4.0St. [facility] HospitalComment on above:Performed By: #### 0279013, 7330144, 3352879, 529919983, 63783810 #### [facility] [address] [place] [address] [place] [address]Vrhwipv [Mass/Vol]7.3 g/dLNormal6.0-7.8St. [facility] HospitalComment on above:Performed By: #### 8976971, 8162057, 9561413, 967915378, 42932237 #### [facility] [address] [place], [place] [address]Ekdguxobbd - Microbiology and Antimicrobial susceptibility Ordered By: Ninfa Sawyer on 02-42-6445Inhejtzq identified Cx Nom (U)1,000 cfu/ml Mixed skin contaminantsRegency Hospital CompanyMonitor Recordon 33-27-0348Zxewacp [id number]#1.00CD:127 [facility] SouthPre-Arrival Noteon 63-94-9139Kxb-Arrival Note Pre-Arrival Summary Name: UTI, ncems Current Date: 12/20/2022 15:06:09 EDT Gender: Date of : Age: Pre-Arrival Type: EMS ETA: 12/20/2022 15:31:00 EDT Primary Care Physician: Presenting Problem: Pre-Arrival User: Delia Tsai RN Referring Source: Location: [place] Completion Date/Time: 12/20/2022 15:01:00 [facility] Emergency Department Pre-Hospital Report Form Vital Signs: Pre-Hospital Report: Treatment in Route: Response to Treatment: Misc. Issues:[facility] SouthTroponin 0 Hr.on 12-20-2022 Troponin I.cardiac [Mass/Vol]9.80 pg/mLLow10.10-27.10[facility] Comment on above:Result Comment: The 95% CI (Confidence Interval) PPV (Positive Predictive Value) for myocardial infarction in females is 38 pg/mL, in males 51 pg/mL. The results should be used in conjunction with clinical conditions of myocardial infarction. ([employer] High Sensitivity Troponin I Instructions For Use, [place], November 2017)Performed By: #### 8411326, 5749084, 2371771, 194802710, 77016716 #### [facility] [address] [place], [place] [address]Nqjmgulq 3 Hr.on 18-18-4021Hbvzxkee I.cardiac [Mass/Vol]10.20 pg/sSTnyamx82.10-27.10St[facility] HospitalComment on above:Result Comment: The 95% CI (Confidence Interval) PPV (Positive Predictive Value) for myocardial infarction in females is 38 pg/mL, in males 51 pg/mL. The results should be used in conjunction with clinical conditions of myocardial infarction. ([employer] High Sensitivity Troponin I Instructions For Use, [place], November 2017)Performed By: #### 6045053, 2766631, 9870639, 136850325, 28112529 #### [facility] [address] [place], [place] [address]TU With Cult Reflexon 45-86-8020Mnqxjvwtz Ql (U)NegativeNormal NegativeSt. Elizabeth HospitalComment on above:Performed By: #### 30346816, 5070267 ####[address] [place], [place] [address]Hbxtwmn (U)CLEARNormalClearSt. Elizabeth HospitalComment on above: Performed By: #### 67959757, 6134533 ####[address] [place], [place] [address]Hjqhy (U)STRAWAbnormalYellowSt. Elizabeth HospitalComment on above:Performed By: #### 76283174, 6682123 ####[address] [address] Epithelial cells.squamous LM.HPF (Urine sed) [#/Area]0-3Sajghf3-7Ospxux St. [facility]nes HospitalComment on above:Performed By: #### 18344430, 1165593 ####[address] [place], [place] [address]Rwwogdx Test strip (U) [Mass/Vol]NegativeNormalNegativeSt. Elizabeth HospitalComment on above:Performed By: #### 06170724, 1846394 ####[address] [address]Gkmedjddhy Ql (U)TRACEAbnormal Newark HospitalComment on above:Performed By: #### 89415985, 6782699 ####[address] [address]Difmunh (U) [Mass/Vol]NegativeNormalNegativeSt. [facility] Hospital Comment on above:Performed By: #### Celina, 5937331 ####[address] [address]Tscspep.plasma/Dimmitt.RBC (Bld) [Mass ratio]0-4Rkanmi6-3Eahgpk St. [facility] HospitalComment on above: Performed By: #### 99010280, 6646753 ####[address] [address]Zecfxrx Ql (U)NegativeNormalNegative St. Elizabeth HospitalComment on above:Performed By: #### 88850217, 9522942 ####[address] [address]kV (U)5.5 [pH]Invalid Interpretation Code5.0-9.0St. [facility] HospitalComment on above:Performed By: #### 33272311, 7466633 ####[address] [address]Plyrrah (U) [Mass/Vol]NegativeNormal NegativeSt. Elizabeth HospitalComment on above:Performed By: #### 49628842, 1516656 ####[address] [address]Dzrelhuo gravity (U) [Rel density]<=1.005Invalid Interpretation Code 1.005-1.030St. [facility] HospitalComment on above:Performed By: #### 13075350, 5455096 ####[address] [facility] [address] [place] [address]Jsmr of Urine collection methodClean CatchNormalSt. Elizabeth HospitalComment on above:Performed By: #### 88164197, 1456392 ####Wilhelm [address] [address]Qnicjtlykwny Qn (U)0.2 {Tj'U}/dLNormal0.0-1.0St. [facility] HospitalComment on above: Performed By: #### 00787213, 8803516 ####[address] [address]MIZ Auto Ql (U)1+AbnormalNegative St. Elizabeth HospitalComment on above:Performed By: #### 98378204, 1456945 ####[address] [address]MTG LM.HPF (Urine sed) [#/Area]4-39Sejmiddf9-8JzsdscLakeHealth Beachwood Medical CenterComment on above:Performed By: #### 69379976, 1327264 ####[address] [address]RV Spec DescCatheterNormalSt. Elizabeth HospitalComascension borgess hospital on above:Result Comment: Minicath specimenPerformed By: #### 5729035, 0218458, 2622707, 649220248, 00358696 #### [facility] [address] [place] [address]EDRIFHGVYWTsxpglq By: Lisette Medina on 38-92-8982Bkzuuhemo Ql (U)Negative (12/20/22 5:18 PM)NormalNegativeNOR[facility] UA Auto SSClarity (U)Clear (12/20/22 5:18 PM)NormalClearFTULSA [facility] UA Auto SSColor (U)Straw *ABN* (12/20/22 5:18 PM)Invalid Interpretation CodeYellowNORTHWEST CENTER FOR [facility] UA Auto SSEpithelial cells.squamous LM.HPF (Urine sed) [#/Area]0-2 /HPFNormal0-2/HPFNORTHWEST C[facility] FOR [facility] UA Auto SS Glucose Test strip (U) [Mass/Vol]Negative (12/20/22 5:18 PM)NormalNegativeNORTHWEST [facility] UA Auto SSHemoglobin Ql (U)Trace *ABN* (12/20/22 5:18 PM)Invalid Interpretation CodeNegativeNORTHWEST [facility] UA Auto SSKetones (U) [Mass/Vol]Negative (12/20/22 5:18 PM)NormalNegativeNORTHWEST [facility] UA Auto SSLithium.plasma/Dimmitt.RBC (Bld) [Mass ratio]0-3 /HPFNormal0-3/HPFNORTHWEST CENTER FOR [facility] UA Auto SSNitrite Ql (U)Negative (12/20/22 5:18 PM)NormalNegativeNORTHWEST [facility] UA Auto SSpH (U)5.5 *NA* (12/20/22 5:18 PM)Invalid Interpretation Code5.0 - 9.0[facility] UA Auto SSProtein (U) [Mass/Vol]Negative (12/20/22 5:18 PM)NormalNegativeNORTHWEST [facility] UA Auto SSSpecific gravity (U) [Rel density] <=1.005 *NA* (12/20/22 5:18 PM)Invalid Interpretation Code1.005 - 1.030[facility] UA Auto SSUA Spec DescClean Catch (12/20/22 5:18 PM)NormalNORTHWEST CENTER FOR BE[facility] UA Auto SSUrobilinogen Qn (U)0.6515515 {Tj'U}/dLNormal0.0 - 1.0 EU/dLNORTHWEST CENTER FOR [facility] UA Auto SSWBC Auto Ql (U)1+ *ABN* (12/20/22 5:18 PM)Invalid Interpretation CodeNegativeNORTHWEST [facility] UA Auto SSWBC LM.HPF (Urine sed) [#/Area]6-15 /HPFInvalid Interpretation Code0-5/HPFNORTHWEST CENTER FOR BE[facility] UA Auto SSXR Chest Single Viewon 50-61-2743MN Chest Single ViewExam Date/Time: 12/20/2022 16:16 EDT [...] Ka,r in mGy = na [facility]XR Chest Single ViewExam Date/Time: 12/19/2022 21:38 [...] Ka,r in mGy = na DAP = [facility] HospitaleGFRon 15-65-1626OYK/1.73 sq M.predicted among non-blacks MDRD (S/P/Bld) [Vol rate/Area]43 mL/min/1.73 m2Low >=[address] [place], [place] [address]Comment on above:Order Comment: Order added by Discern Expert.Result Comment: Chronic kidney disease could be indicated at eGFR's of less than 60 mL/min/1.73m2. Kidney failure is indicated at less than 15 mL/min/1.73m2.Performed By: #### 1479114, 8776503, 1275664, 185181409, 66012709 #### [address] [facility] [address] [place], [place] [address]Twcw Diffon 43-87-4653Ichnvuady/100 WBC (Bld)0.4 %Normal0.0-2.0 [facility] HospitalComment on above:Order Comment: Order Added by Discern Expert.Performed By: #### 8734101, 2484014, 1218589, 991097818, 83511854 #### [facility] [address] [place] [address]Rvemtrtvr/Leukocytes Auto (Bld) [Pure # fraction]0.0 E9/LNormal 0.0-0.2FLakeHealth Beachwood Medical CenterComment on above:Order Comment: Order Added by Discern Expert.Performed By: #### 1958347, 0000644, 7297772, 287163353, 95986583 #### [facility] [address] [place] [address]Casomrkphul/100 WBC (Bld)1.6 %Normal0.0-8.0St. [facility] HospitalComment on above:Order Comment: Order Added by Discern Expert.Performed By: #### 5118229, 2317594, 5497468, 077330312, 68489190 #### [facility] [address] [place] [address]Gsqgpteawea/Leukocytes Auto (Bld) [Pure # fraction]0.1 E9/L Normal0.0-0.5FLakeHealth Beachwood Medical CenterComment on above:Order Comment: Order Added by Discern Expert.Performed By: #### 4850765, 2566815, 8246621, 190444626, 99222955 #### [facility] [address] [place] [address]Wxelifaxjnt/100 WBC (Bld)34.4 %Aboxse34.0-50.0St. [facility] HospitalComment on above:Order Comment: Order Added by Discern Expert. Performed By: #### 1453037, 7095036, 0681472, 740422295, 93072088 #### [facility] [address] [place] [address]Khrrfhvljba/Leukocytes Auto (Bld) [Pure # fraction]1.2 E9/L Normal1.0-4.0[facility]. [facility] HospitalComment on above:Order Comment: Order Added by Discern Expert.Performed By: #### 1550540, 9451882, 6368186, 401024745, 44753548 #### [facility] [address] [place], [place] [address]Oncyozbmc/100 WBC (Bld)12.8 %Normal4.0-14.0St. [facility] HospitalComment on above:Order Comment: Order Added by Discern Expert.Performed By: #### 8183983, 3051235, 8617123, 764193927, 03466899 #### [facility] [address] [place] [address]Ucovffgqj/Leukocytes Auto (Bld) [Pure # fraction]0.4 E9/LNormal 0.2-1.0[facility]. [facility] HospitalComment on above:Order Comment: Order Added by Discern Expert.Performed By: #### 1504223, 0878419, 8089069, 202370466, 76900916 #### [facility] [address] [place] [address]Chsqqdazdgo/100 WBC (Bld)50.8 %Lfvgqb60.0-75.0St. [facility] HospitalComment on above:Order Comment: Order Added by Discern Expert. Performed By: #### 5396241, 4834101, 7925923, 629914485, 81359176 #### [facility] [address] [place] [address]Udofnuavkis/Leukocytes Auto (Bld) [Pure # fraction]1.7 E9/LLow 2.0-7.5FLakeHealth Beachwood Medical CenterComment on above:Order Comment: Order Added by Discern Expert.Performed By: #### 6951740, 9031639, 0586592, 332671361, 68523407 #### [facility] [address] [place] [address]KOUco 64-18-7090Dffbk gap [Moles/Vol]10 mmol/LNormal6-16St. [facility] HospitalComment on above:Performed By: #### 8872210, 9154353, 8411404, 951778758, 89410791 #### [facility] [address] [place], [place] [address]Opccqyh [Mass/Vol]9.4 mg/dLNormal8.9-11.1FLakeHealth Beachwood Medical CenterComment on above:Performed By: #### 0128226, 8120319, 2320004, 399112914, 83990279 #### [facility] [address] [place], [place] [address]Ubfobxns [Moles/Vol]111 mmol/FCzfzrf038-015YkwxasSt. Elizabeth HospitalComment on above:Performed By: #### 9622036, 9504192, 8672214, 072141810, 99839319 #### [facility] [address] [place], [place] [address]UW5 [Moles/Vol]25 mmol/TZygmej84-37JuqcaeSt. [facility] Hospital Comment on above:Performed By: #### 8057084, 6260441, 7569765, 639027267, 89238259 #### [facility] [address] [place], [place] [address]Xtczzjgxxu [Mass/Vol]1.4 mg/dLHigh0.5-1.3FLakeHealth Beachwood Medical CenterComment on above:Performed By: #### 3947474, 5257448, 3161096, 068316104, 52962940 #### [facility] [address] [place], [place] [address]Mfszprx [Mass/Vol]165 mg/zKBchfol70-530TphgtrSt. Elizabeth HospitalComment on above:Result Comment: If this glucose result represents a fasting glucose, interpretation should refer tothe following reference range: 55-99 mg/dLPerformed By: #### 4346430, 4146487, 4241782, 732782142, 58282448 #### [facility] [address] [place], [place] [address]Ipstfmhop [Moles/Vol]4.6 mmol/LNormal3.5-5.3FLakeHealth Beachwood Medical CenterComment on above:Performed By: #### 8869937, 5532306, 1657127, 662198874, 70473796 #### [facility] [address] [place], [place] [address]Bjvuuy [Moles/Vol]141 mmol/TUvlcyv563-123WsvmegSt. Elizabeth HospitalComment on above:Performed By: #### 6125242, 2773149, 8717414, 161957823, 61341283 #### [facility] [address] [place], [place] [address]Dttx nitrogen [Mass/Vol]36 mg/dLHigh5-21St. [facility] HospitalComment on above:Performed By: #### 4479881, 0528999, 1512347, 249661656, 65151971 #### [facility] [address] [place], [place] [address]Ivae nitrogen/Creatinine [Mass ratio]26 No ZrkdrErel61-87GyvvcsSt. Elizabeth HospitalComment on above:Performed By: #### 0976376, 9302848, 1898144, 039352850, 79087729 #### [facility] [address] [place], [place] [address]LIC w/ Auto Diffon 83-62-2596Uuuzgsptlxr distribution width (RBC) [Ratio]18.9 %High10.9-14.2FLakeHealth Beachwood Medical CenterComment on above: Performed By: #### 8519491, 6223668, 2482577, 268031620, 55106060 #### [facility] [address] [place], [place] [address]Xcjlhzcuwq (Bld) [Volume fraction]32.2 %Low34.0-46.0St. [facility] HospitalComment on above:Performed By: #### 9893520, 9743667, 1349838, 526158460, 86469176 #### [facility] [address] [place], [place] [address]Gvyikwlndf (Bld) [Mass/Vol]10.8 g/dLLow12.0-16.0St. [facility] HospitalComment on above:Performed By: #### 0236206, 5635023, 2098257, 904674981, 28635893 #### [facility] [address] [place], [place] [address]MCH (RBC) [Entitic mass]33.5 niOofkxr10.0-34.0St. [facility] HospitalComment on above:Performed By: #### 9487215, 2321383, 4068609, 315055772, 50637906 #### [facility] [address] [place], [place] [address]HC (RBC) [Mass/Vol]33.4 g/wKXtksob93.4-36.0St. [facility] HospitalComment on above:Performed By: #### 6795099, 7444890, 0435448, 879971067, 13702993 #### [facility] [address] [place], [place] [address]MCV (RBC) [Entitic vol]100.5 fRXzkn05.0-100.0St. [facility] HospitalComment on above:Performed By: #### 6034304, 3541346, 3681861, 506354834, 65215701 #### [facility] [address] [place] [address]Sgpfpqou mean volume (Bld) [Entitic vol]7.[address] fLNormal6.4-10.8 [address] [facility] HospitalComment on above:Performed By: #### 4080989, 9863476, 9562656, 309592480, 87674945 #### [facility] [address] [place] [address]Sswezlpiz (Bld) [#/Vol]204.0 E9/PXqopcd041.0-500.0St. [facility] HospitalComment on above:Performed By: #### 3735581, 1881209, 8780419, 380251719, 42566678 #### [facility] [address] [place] [address]RDS (Bld) [#/Vol]3.2 E12/LLow4.3-5.9[facility] Comment on above:Performed By: #### 6951684, 0214247, 1535927, 788484932, 71917619 #### [facility] [address] [place], [place] [address]GTJ corrected for nucl RBC Auto (Bld) [#/Vol]3.4 E9/LLow 4.0-11.0St. [facility] HospitalComment on above:Performed By: #### 4697254, 5268651, 1728638, 728442678, 21612828 #### [facility] [address] [place], [place] [address]UGVRFJFMYRvmiewt By: SYSTEM SYSTEM on 10-36-8822Oxqcwtl [Mass/Vol]3.5 g/dLNormal3.3 - 5.0 gm/dLFTMC RemisolAlbumin/Globulin [Mass [...] [Mass/Vol]9.4 mg/dLNormal8.9 - 11.1 mg/dLFTMC RemisolChloride [Moles/Vol]111 mmol/VOxqtmu516 - 111 mmol/LFTMC RemisolCO2 [Moles/Vol]25 mmol/L Wmvimp82 - 31 mmol/LFTMC RemisolCreatinine [Mass/Vol]1.4 mg/dLHigh0.5 - 1.3 mg/dLFT RemisolGFR/1.73 sq M.predicted among non-blacks MDRD (S/P/Bld) [Vol rate/Area]40 mL/min/1.73 m2Low>=59mL/min/1.73 m2[facility] Chem SGlobulin (S) [Mass/Vol]3.5 g/dLNormal1.4 - 4.0 gm/dLFT RemisolGlucose [Mass/Vol]165 mg/dL Ffioer16 - 199 mg/dLFT RemisolMagnesium [Mass/Vol]2.0 mg/dLNormal1.3 - 2.4 mg/dLFT RemisolPotassium [Moles/Vol]4.6 mmol/LNormal3.5 - 5.3 mmol/LFTMC RemisolProtein [Mass/Vol]7.0 g/dLNormal6.0 - 7.8 gm/dLFT RemisolSodium [Moles/Vol]141 mmol/UAzuzlz203 - 145 mmol/LFTMC RemisolTroponin I.cardiac [Mass/Vol]9.40 pg/mLLow10.10 - 27.10 pg/mLFT RemisolUrea nitrogen [Mass/Vol]36 mg/dLHigh5 - 21 mg/dLNORTHWEST [facility] RemisolUrea nitrogen/Creatinine [Mass ratio]26 mg/mg High10 - 20FT RemisolCOAGULATIONOrdered By: Evert Cordoba on 90-95-0588mLRG Coag (PPP) [Time]26.7 gRbcrhx76.1 - 36.5 second(s)[facility] Auto CoagINR Coag (PPP) [Relative time]1.0 {INR}Invalid Interpretation CodeFT Auto CoagPT Coag (PPP) [Time]11.5 sNormal9.4 - 12.5 second(s)[facility] Auto CoagConsent for Treatmenton 83-81-9351Bvbrevd for Treatment [id number]#1.00CD:[address] [place], [place] [address]HEMATOLOGYOrdered By: SYSTEM SYSTEM on [id number]/100 WBC (Bld) 0.4 %Normal0.0 - 2.0 %[facility] HemeAutoSSBasophils/Leukocytes Auto (Bld) [Pure # fraction]0.0 E9/LNormal0.0 - 0.2 E9/LFTMC HemeAutoSSEosinophils/100 WBC (Bld)1.6 %Normal0.0 - 8.0 %[facility] HemeAutoSSEosinophils/Leukocytes Auto (Bld) [Pure # fraction]0.1 E9/LNormal0.0 - 0.5 E9/LFTMC HemeAutoSSLymphocytes/100 WBC (Bld) 34.4 %Sqigsg39.0 - 50.0 %[facility] HemeAutoSSLymphocytes/Leukocytes Auto (Bld) [Pure # fraction]1.2 E9/LNormal1.0 - 4.0 E9/LFTMC HemeAutoSSMonocytes/100 WBC (Bld) 12.8 %Normal4.0 - 14.0 %[facility] HemeAutoSSMonocytes/Leukocytes Auto (Bld) [Pure # fraction]0.4 E9/LNormal0.2 - 1.0 E9/LFTMC HemeAutoSSNeutrophils/100 WBC (Bld) 50.8 %Ksclyb42.0 - 75.0 %[facility] HemeAutoSSNeutrophils/Leukocytes Auto (Bld) [Pure # fraction]1.7 E9/LLow2.0 - 7.5 E9/LFTMC HemeAutoSSHEMATOLOGYOrdered By: Evert Cordoba on 35-04-0185Soaymplgkhz distribution width (RBC) [Ratio]18.9 %High 10.9 - 14.2 %[facility] HemeAutoSSHematocrit (Bld) [Volume fraction]32.2 %Low34.0 - 46.0 %[facility] HemeAutoSSHemoglobin (Bld) [Mass/Vol]10.8 g/dLLow12.0 - 16.0 gm/dL [facility] HemeAutoSSMCH (RBC) [Entitic mass]33.5 afRubeny94.0 - 34.0 pgFTULSA SPINE & [facility]TY [facility] HemeAutoSSMCHC (RBC) [Mass/Vol]33.4 g/ySXudgzs75.4 - 36.0 gm/dLFT HemeAutoSS MCV (RBC) [Entitic vol]100.5 gQZzxa57.0 - 100.0 fLNOR[facility]WE[facility] HemeAutoSSPlatelet mean volume (Bld) [Entitic vol]7.0 fLNormal6.4 - 10.8 fLNORTHWEST [facility] HemeAutoSSPlatelets (Bld) [#/Vol]204.0 E9/QTgnywv034.0 - 500.0 E9/[facility] HemeAutoSSRBC (Bld) [#/Vol] 3.2 E12/LLow4.3 - 5.9 E12/[facility] HemeAutoSSWBC corrected for nucl RBC Auto (Bld) [#/Vol]3.4 E9/LLow4.0 - 11.0 E9/[facility] HemeAutoSSHep Func Panelon 12-19-2022 Albumin [Mass/Vol]3.5 g/dLNormal3.3-5.0St. [facility] HospitalComment on above:Performed By: #### 6322237, 1780493, 5099050, 707112930, 17751918 #### [facility] [address] [place], [place] [address]Gbachsy/Globulin (S) [Mass conc ratio]1.0Low1.1-2.2Fisher St. Agnes HospitalComment on above:Performed By: #### 8951885, 2061254, 3343227, 518752098, 63862905 #### [facility] [address] [place], [place] [address]EKS [Catalytic activity/Vol]110 Int._Unit/ROjtu40-79FzlaemSt. Elizabeth HospitalComment on above:Performed By: #### 7991723, 6393180, 0514977, 076281274, 26530262 #### [facility] [address] [place], [place] [address]LUN No additional P-5'-P [Catalytic activity/Vol]20 Int._Unit/L Normal6-46St. [facility] HospitalComment on above:Performed By: #### 7642119, 8836080, 3313212, 330628737, 74885485 #### [facility] [address] [place] [address]HFQ [Catalytic activity/Vol]19 Int._Unit/LNormal5-43St. [facility] HospitalComment on above:Performed By: #### 5451671, 3927308, 5252450, 935558226, 92990362 #### [facility] [address] [place], [place] [address]Zgmowswdm [Mass/Vol]0.4 mg/dLNormal0.0-1.1FLakeHealth Beachwood Medical CenterComment on above:Performed By: #### 1790238, 4910573, 2056675, 925625094, 91323651 #### [facility] [address] [place] [address]Tkyhayhdv.direct [Mass/Vol]0.1 mg/dLNormal0.1-0.4FLakeHealth Beachwood Medical CenterComment on above:Performed By: #### 0915913, 9865521, 7955823, 126523509, 09164272 #### [facility] [address] [place] [address]Kslbscacp.indirect [Mass or moles/Vol]0.3 mg/dLNormal0.1-0.9 [facility] HospitalComment on above:Performed By: #### 2093784, 3708847, 7689595, 304822838, 48834262 #### [facility] [address] [place] [address]Ygwkcfcb (S) [Mass/Vol]3.5 g/dLNormal1.4-4.0St. [facility] HospitalComment on above:Performed By: #### 1092145, 8676680, 5882126, 212199292, 98454647 #### [facility] [address] [place] [address]Jyfqbkd [Mass/Vol]7.0 g/dLNormal6.0-7.8St. [facility] HospitalComment on above:Performed By: #### 8603736, 9656154, 1806001, 914574848, 12627818 #### [facility] [address] [place], [place] [address]Ouliiptfve - Microbiology and Antimicrobial susceptibility Ordered By: Jeaneth Morfin on 25-02-6094Znwzijdj identified Cx Nom (U)>100,000 cfu/ml Gram Negative [place] Repairer Helper Hand speciesRegency Hospital CompanyMagnesium on 99-21-5429Gzhgvoeze [Mass/Vol]2.0 mg/dLNormal1.3-2.4FLakeHealth Beachwood Medical CenterComment on above:Performed By: #### 9570213, 0782495, 2711653, 619294976, 76638341 #### [facility] [address] [place], [place] [address]Dklvwdx Recordon 84-00-7169Rahqbep Record [id number]#1.00CD:127NormalSt. Elizabeth HospitalPT & PTTon 00-17-2659wWRK Coag (PPP) [Time]26.7 second(s)Vdiqpw81.1-36.5 St[facility] HospitalComment on above:Result Comment: Parameter 15 days [...] the same coagulation reagent and instrumentation as [facility]. Currently there are no coagulation studies available worldwide for children to 14 days, andno normal ranges. Heparin therapeutic range (represented by Anti-Factor Xa activity of 0.2 - 0.4 U/mL) corresponds to PTT of 56.6 - 109.0 sec.Performed By: #### 4064419, 7960409, 6739645, 697377551, 46583233 #### [facility] [address] [place], [place] [address]JQK Coag (PPP) [Relative time]1.0 {INR}Invalid Interpretation CodeFishThe Sheppard & Enoch Pratt HospitalComment on above:Result Comment: INR results are specifically intended to assess patients stabilized on long-term Anticoagulation therapy suggested INR?s ?Less Intensive Anticoagulation? 2.0 ? 3.0 Conventional Range 3.0 ? 4.5Performed By: #### 4713011, 3106405, 3366905, 910583089, 12479229 #### [facility] [address] [place], [place] [address]HS Coag (PPP) [Time]11.5 second(s)Normal9.4-12.5FLakeHealth Beachwood Medical CenterComment on above:Result Comment: 15 days - [...] the same coagulation reagent and instrumentation as [facility]. Currently there are no coagulation studies available worldwide for children to 14 days, andno normal ranges.Performed By: #### 6168807, 1992983, 1248927, 544456174, 03505769 #### [facility] [address] [place], [place] [address]Usz-Ihrubhv Noteon 63-50-6603Pwg-Arrival NotePre-Arrival Summary Name: aram freed Current Date: 12/19/2022 20:42:25 EDT Gender: Female Date of : Age: 72 Pre-Arrival Type: EMS ETA: 12/19/2022 20:55:00 EDT Primary Care Physician: Presenting Problem: gen. weakness Pre-Arrival User: Javier Flood RN Referring Source: Location: [place] Completion Date/Time: 12/19/2022 20:25:00 [facility] Emergency Department Pre-Hospital Report Form Vital Signs: 140/83, 89pulse, 96% Pre-Hospital Report: generalized weakness. awaiting bed at [facility]. pt wanted seen . Treatment in Route: Response to Treatment: Misc. Issues:NormalSt. Elizabeth HospitalTroponin 0 Hr.on 12-19-2022 Troponin I.cardiac [Mass/Vol]9.40 pg/mLLow10.10-27.10[facility] Comment on above:Result Comment: The 95% CI (Confidence Interval) PPV (Positive Predictive Value) for myocardial infarction in females is 38 pg/mL, in males 51 pg/mL. The results should be used in conjunction with clinical conditions of myocardial infarction. (Access High Sensitivity Troponin I Instructions For Use, Gaby Marisol, November 2017)Performed By: #### 8189504, 7816392, 8844094, 002217399, 53370931 #### [facility] [address] [place], [place] [address]XX With Cult Reflexon 55-26-8287Gnfleqqm LM Ql (Urine sed)2+ /HPFAbnormalTraceSt. Elizabeth HospitalComment on above:Performed By: #### 7966765, 5891307, 0122502, 768097244, 92265120 #### [facility] [address] [place], [place] [address]Dsemqlqmn Ql (U)NegativeNormalNegativeSt. Elizabeth HospitalComment on above:Performed By: #### 1775866, 1012309, 0591074, 678324333, 30222550 #### [facility] [address] [place], [place] [address]Kklxkic (U)CLEARNormalClearCape Fear Valley Bladen County Hospitaler St. Agnes HospitalComment on above:Performed By: #### 4715323, 4548188, 0294776, 803479839, 19133072 #### [facility] [address] [place] [address]Mpfpf (U)YELLOWNormalYellowSt. Elizabeth HospitalComment on above:Performed By: #### 5593899, 9009136, 7373935, 700624967, 64090699 #### [facility] [address] [place] [address]Hvxrkcvhfb cells.squamous LM.HPF (Urine sed) [#/Area]0-2Normal 0-2Fisher St. Agnes HospitalComment on above:Performed By: #### 9022425, 9214313, 0409367, 137123595, 12900365 #### [facility] [address] [place] [address]Qpnknji Test strip (U) [Mass/Vol]NegativeNormalNegativeSt. Elizabeth HospitalComment on above:Performed By: #### 4013844, 2711207, 3826391, 634050216, 54229225 #### [facility] [address] [place] [address]Kysnxzdaef Ql (U)NegativeNormalNegativeSt. Elizabeth HospitalComment on above:Performed By: #### 9277130, 6265614, 6645352, 883911240, 13203865 #### [facility] [address] [place] [address]Ckudkxq (U) [Mass/Vol]NegativeNormalNegativeSt. Elizabeth HospitalComment on above:Performed By: #### 4008765, 5345062, 0839720, 577810481, 09140646 #### [facility] [address] [place] [address]Tvvubjh.plasma/Dimmitt.RBC (Bld) [Mass ratio]8-2Rhebyb8-9Vtkjhc St. Agnes HospitalComment on above:Performed By: #### 3126639, 7647799, 0783036, 361477075, 71525450 #### [facility] [address] [place] [address]Zjlabgq Ql (U)PositiveAbnormalNegativeSt. Elizabeth HospitalComment on above:Performed By: #### 6872362, 6906906, 7718480, 479677594, 20689451 #### [facility] [address] [place] [address] 21166bU (U)6.0 [pH]Invalid Interpretation Code5.0-9.0St. Elizabeth HospitalComment on above:Performed By: #### 7910908, 0587525, 9887477, 884183495, 17503324 #### [facility] [address] [place] [address]Gvxmgoy (U) [Mass/Vol]NegativeNormalNegativeSt. Elizabeth HospitalComment on above:Performed By: #### 3975370, 5711274, 8923559, 695674727, 46127898 #### [facility] [address] [place] [address]Viawcajp gravity (U) [Rel density]1.025Invalid Interpretation Code1.005-1.030St. Elizabeth HospitalComment on above:Performed By: #### 7395797, 1329478, 2238121, 984610286, 53791084 #### [facility] [address] [place] [address]Zlqonokoisfv Qn (U)0.2 {Tj'U}/dLNormal0.0-1.0St. [facility] HospitalComment on above:Performed By: #### 5496350, 9459012, 9117153, 901038544, 51468645 #### [facility] [address] [place] [address]RDK Auto Ql (U)TRACEAbnormalNegativeFisher St. [facility] Hospital Comment on above:Performed By: #### 2798987, 4023771, 5925316, 252006847, 65638930 #### [facility] [address] [place], [place] [address]SOU LM.HPF (Urine sed) [#/Area]8-5Ldputw6-7Rwbykr St. Agnes HospitalComment on above:Performed By: #### 2196653, 5697379, 1279397, 349546272, 67290408 #### [facility] [address] [place], [place] [address]YPJVAESOLXTxditkc By: Evert Cordoba on 77-99-1929Ubeagvln LM Ql (Urine sed)2+ /HPFInvalid Interpretation CodeTrace/HPFFT UA Auto SS Bilirubin Ql (U)Negative (12/19/22 10:25 PM)NormalNegativeNOR[facility] UA Auto SSClarity (U)Clear (12/19/22 10:25 PM)NormalClearFTULSA SPINE & SPECIALTY [facility] UA Auto SSColor (U)Yellow (12/19/22 10:25 PM)NormalYellowNORTHWEST CENTER FOR [facility] UA Auto SSEpithelial cells.squamous LM.HPF (Urine sed) [#/Area]0-2 /HPFNormal0-2/HPFFTMC UA Auto SSGlucose Test strip (U) [Mass/Vol]Negative (12/19/22 10:25 PM)NormalNegativeNORTH[facility] UA Auto SSHemoglobin Ql (U)Negative (12/19/22 10:25 PM)NormalNegativeNORTHWEST [facility] UA Auto SSKetones (U) [Mass/Vol]Negative (12/19/22 10:25 PM)NormalNegativeNORTHWEST [facility] UA Auto SSLithium.plasma/Dimmitt.RBC (Bld) [Mass ratio]0-3 /HPFNormal0-3/HPFFTMC UA Auto SSNitrite Ql (U)Positive *ABN* (12/19/22 10:25 PM)Invalid Interpretation CodeNegativeNORTH[facility] UA Auto SSpH (U)6.0 *NA* (12/19/22 10:25 PM)Invalid Interpretation Code5.0 - 9.0FT[facility] UA Auto SSProtein (U) [Mass/Vol]Negative (12/19/22 10:25 PM)NormalNegativeNOR[facility] UA Auto SSSpecific gravity (U) [Rel density]1.025 *NA* (12/19/22 10:25 PM)Invalid Interpretation Code1.005 - 1.030[facility] UA Auto SSUA Spec DescCatheter 1 (12/19/22 10:25 PM)NormalNORTHWEST CENTER [facility] UA Auto SSComment on above:Result Comment: Minicath specimenUrobilinogen Qn (U)0.8533325 {Tj'U}/dLNormal0.0 - 1.0 EU/dLNORTHWEST C[facility] UA Auto SSWBC Auto Ql (U)Trace *ABN* (12/19/22 10:25 PM)Invalid Interpretation CodeNegativeNORTH[facility] UA Auto SSWBC LM.HPF (Urine sed) [#/Area]0-5 /HPFNormal0-5/HPFNORTHWEST C[facility] FOR [facility] UA Auto SSeGFRon 12-19-2022 GFR/1.73 sq M.predicted among non-blacks MDRD (S/P/Bld) [Vol rate/Area]40 mL/min/1.73 m2Low>=59St. Elizabeth HospitalComment on above:Order Comment: Order added by Discern Expert.Result Comment: Chronic kidney disease could be indicated at eGFR's of less than 60 mL/min/1.73m2. Kidney failure is indicated at less than 15 mL/min/1.73m2.Performed By: #### 9755861, 8620211, 6165154, 567250194, 04013413 #### [facility] [address] [place], [place] [address]TG Spine Lumbar w/o Contraston 40-47-7411AJ Spine Lumbar w/o ContrastExam Date/Time: 12/17/2022 10:41 [...] Zaheer Arriaga M.D. Transcribed by: TOLU Technologist: [place] State Health SystemConsent for Treatmenton 67-01-6059Cjnfite for Treatment [id number]#1.00CD:127[facility] SouthDischarge Instructionson 66-44-8479Uwcbmcvxg Instructions [id number]#1.00CD:127NormalFisher [facility] Clinical Summaryon 08-97-3605TI Clinical Summary [address] [address] ED Clinical Summary Person Information Name: MARLEN STALEY/Savita Age: 72 Years : 1950 Sex: Female Language: Lao PCP: Rickey Askew MD Marital Status: Phone: [phone] MRN: Visit Id: Visit Reason: Weakness or [...] 12/17/2022 14:42:45 12/17/2022 14:42:45 12/17/2022 14:42:45 ADDRESS: [address] [place] [address] [address] [place] [id number] PHYS DOC NOTES: MEDICAL INFORMATION: Prescriptions Given: New Medications [facility], [address] [place], [place] [id number], [phone] oxycodone (oxyCODONE 5 mg Tab) 1 Tablets [...] Fracture Follow up: With: Address: When: JOSÉ ANTONIOMARY ELLEN OVIEDO[address] [address] Business (1) In 3 days 12/20/2022 With: Address: When: Gavino Lugo [address] [place] [address] Business (1) In 3 days 12/20/2022 With: Address: When: Rickey Askew [address] [place] [address] Business (1) In 3 days 12/20/2022 DIAGNOSIS: Fall; Lumbar compression fractureNormalFisher Fairmont Medical CenterED Note-Physicianon 35-48-2710IJ Note-PhysicianBasic Information Time Seen: Gui Scruggs PA-C [...] day(s), # 15 tab(s), Refills(s) 0, Pharmacy: [facility], 168, cm, 12/17/22 10:29:00 EDT, Height/Length [...] VARGAS In 3 days 12/20/[address]T [address] [address] Additional Instructions: Gavino Lugo In 3 days 12/20/2022 EDT [address] [place] [address]- Business (1) Additional Instructions: Rickey Askew In 3 days 12/20/2022 EDT [address] [place] [address]- Business(1) Additional Instructions: Patient Education Lumbar Spine [...] made to ensure accuracy, however, inadvertently computerized rotary drill operator helper mistakes may be present. Appropriate healthcare PPE [...] breast Multiple closed fra (more content not included)...[facility] - [facility] SouthComment on above:Result Comment: Electronically Signed By: Kael SIMPSONGui\.br\Date and Time Signed: 12/17/2312:40 EDT\.br\Electronically Co-Signed By: Jeffery Murphy DO\.br\Date and Time Co-Signed: 12/17/22 18:34 EDTED Patient Education Noteon 82-36-7977TD Patient Education NoteOrthopedics Lumbar Spine Fracture A [...] these instructions at home: Medicines ? Take zoki-lnq-azqjofc and prescription medicines only as told by [...] fried or sweet foods. ? Take an fywg-juj-vcpxatm or prescription medicine for constipation. If you [...] condition is renae (more content not included)... [facility] Patient Summaryon 29-06-6502KV Patient Summary [address] [address] Patient Discharge Instructions Person Information Name: MARLEN STALEY Age: 72 Years Arrival Date: 12/17/2022 10:19:35 Discharge Diagnosis: Fall; Lumbar compression fracture Primary Care Physician: Rickey Askew MD Provider Information Primary Provider: Jeffery Murphy DO Advanced Route Sales Representative:Gui Scruggs PA-C The exam and treatment you received in the Emergency Department were for an urgent problem and are not intended as complete care. It is important that you follow up with a doctor, nurse practitioner,or physician?s environmental emergencies assistant for ongoing care. [...] Instructions: With: Address: When: JOSÉ ANTONIO VARGAS [address] [place] [address] Business (1) In 3 days 12/20/2022 With: Address: When: Gavino Lugo [address] [place] [address] Business (1) In 3 days 12/20/2022 With: Address: When: Rickey Askew [address] [place] [address] Business (1) In 3 days 12/20/2022 In the event that this physician does not participate in your insurance network, please consult with your insurance company to find a nearby participating provider. Patient Education Materials: Lumbar Spine Fracture A MESSAGE TO ALL PATIENTS REGARDING OPIOIDS PRESCRIPTION OPIOIDS: WHAT YOU NEED TO KNOW Prescription opioids can be used to help relieve lqcimqet-qm-kesjds pain and are often prescribed following a [...] your community drug take- back program or [employer] mail-back program, or flush them down the toilet, following guidance from the Food and Drug Administration (www.fda.gov/Drugs/ResourcesForYou). ? Visit (more content not included)...[facility] SouthNursing Home Recordson 05-40-5625Whwgurw Home Records [id number]#1.00CD:127NoMercy Health St. Charles HospitalXR Hip 2-3 Views Right + Pelvison 18-31-9362CH Hip 2-3 Views Right + PelvisExam Date/Time: [...] 12/17/2022 12:37 EDT by Pipo Mayfield DO [facility]red [facility] DaytonXR Spine Lumbosacral 2 or 3 Viewson 11-51-9267LR Spine Lumbosacral 2 or 3 ViewsExam Date/Time: [...] FINDINGS: Mild compression fracture of L1 and zdfy-tr-mfwrhiwd compression fracture of L2. No significant interval [...] Ka,r in mGy = na DAP = [facility] Medicine Office/Clinic Noteon 45-76-2732Pahaez Medicine Office/Clinic NoteHistory of Present Illness Discharge from [facility] 12/15 ADMIT [facility] 11/02?16 multiple falls and increasing weakness, neighbor did not feel she was safe at home. currently admitted to [facility] with weakness, dementia. Was unable to ambulate [...] Daily, # 90 tab(s), Refills(s) 4, Pharmacy: [facility], 167, cm, 11/01/22 20:02:00 EDT, Height/Length Dosing, 90.3, kg, 11/01/22 20:02:00 EDT, Weight Dosing Home Health Ztue-rv-Pkxu Encounter Type: Medicare Reason for Mdgz-nl-Xbut (Diagnosis): DISCHARGE DIAGNOSIS Skilled Encounter Detail I certify that I conducted and documented that a ehsn-lj-ywaq (F2F) encounter with the consumer occurred within the 90 days prior to the home health services start of care date, or within 30 days following the start of care date (inclusive of the start of care date), preceding the certification of medical necessity. Jail: Yes Physical Therapy: Yes Occupational Therapy: Yes Speech Therapy: _ Apron Operator: _ Diabetologist: _ Need for Home Health Services I certify based on my findings that... a. Home health services are medically necessary for this patient, including either intermittent long-term and/or therapy, AND b. The patient cannot [...] Vitamin D deficiency H (more content not included)...[facility] SouthComment on above:Result Comment: Electronically Signed By: Sammy QUEZADA MD\.br\Date and Time Signed: 12/14/22 16:36 EDTONC - Otheron 93-34-1333NAI - Other [id number]#1.00CD:127[facility] SouthON - Otheron 66-05-5489ZHY - Other [id number]#1.00CD:[address] [place], [place] [address]ON - Otheron 07-66-2998QFH - Other [id number]#1.00CD:[address] [place], [place] [address]XR Pelvis 1 or 2 Viewson 97-86-7647OC Pelvis 1 or 2 ViewsExam Date/Time: 11/20/2022 [...] TOLU Technologist: AILYN Technical Comments Radiation Dose: Kamatt in mGy = na DAP = naNorAultman Orrville HospitalRAD - MISCon 31-69-5752BKY - MISC [id number]#1.00CD:127[facility] SouthDischarge Documentationon 47-65-5692Dbfsbewuy Documentation [id number]#1.00CD:127NormMetroHealth [facility] Medicine Office/Clinic Noteon 98-50-7282Tzxvhx Medicine Office/Clinic NoteHistory of Present Illness RODOLFO [facility] ADMIT from [facility] 11/02?16 multiple falls and increasing weakness, neighbor did not feel she was safe at home. currently admitted to [facility] with weakness, dementia. Was unableto ambulate in [...] anastrozole, Vit B12 Pt brought in her Bdayssones supply 3. HTN (hypertension) (I10: Essential (primary) [...] 11 refills ergocalciferol 50,000 intl units Cap, 89167 International_Unit= 1 cap(s), Oral, q7day Kisqali (200 [...] w/o Contrast; Christian Mckeon MD 11/02/2022 13:[address] [facility] HospitalComment on above:Result Comment: Electronically Signed By: PILAR HANKS, Sammy\.br\Date and Time Signed: 11/06/22 22:21 EDT Message from Medicareon 44-86-3844Gmzxffv from Medicare [id number]#1.00CD:[address] [place], [place] [address]Transfer Documentson 00-16-2190Urqlnegz Documents [id number]#1.00CD:[address] [place], [place] [address]Insurance Correspondence Officeon 93-27-1356Lsrbsrele Correspondence [id number]#1.00CD:[address] [place], [place] [address]Inpatient Clinical Summaryon 22-14-2205Wrxdsepsu Clinical Summary [place] [id number] Clinical Summary Person Information: Name: MARLEN STALEY Age: 72 Years : 1950 Sex: Female PCP: Rickey Askew MD Marital Status: Phone: [phone] Race: White Ethnicity: Non- or Language: Lao Visit Id: Visit Reason: Weakness or fatigue; Trauma - minor; Multiple falls; WEAKNESS, CHEST PAIN Speciality: Acuity: Enc Type: Observation Med Service: Medical Arrival: 11/01/2022 19:53:41 Discharge: Dispo Type: Admitted as IP to this Hosp Address: [address] [place] [address] [address] [place] [id number] Provider Notes: Addendum by Wyatt Murray MD on November 04, 2022 12:36:52 EDT Diagnosis: [...] up: With: Address: When: Hollis MERRILL [address] [facility]ITALPrimeloopMEM[facility], [address], [facility] [address] [place] [address] Business (1) Comments: Urinary retnetion w/dooley With: Address: When: Gavino Lugo [address] [place] [address] Business (1) Comments: Call for followup appointment in 4 weeks for repeat pelvis xray With: Address: When: Rickey Askew [address] [place] [address] Business (1) Type Location Start [facility] Secured Appointment Type Secured Location 11/22/2022 2:15 PM 11/22/2022 2:30 PM Confirmed Patient Education Information[facility] 11[facility]22 Inpatient Patient Summary [facility] [address] [place], [place] [address] Patient Discharge Instructions PERSON INFORMATION Name: MARLEN STALEY Date of : 1950 Current Date: 11/04/2022 12:38:52 PHYSICIANS Admitting Physician: Mariia LOPEZ DO Primary Care Physician: Rickey Askew MD PCP Comment: Discharge Diagnosis: 1:Generalized weakness; 2:HTN (hypertension); 3:Hypercholesteremia; 4:History of breast cancer; 5:On deep vein thrombosis (DVT) prophylaxis; Multiple falls Condition at Discharge: MARLEN Fishman has been given the following list of [...] up: With: Address: When: Hollis MERRILL [address] [facility], [address], [address] [address] Business (1) Comments: Urinary retnetion w/spencer With: Address: When: Gavino Lugo [address] [place] [address] Business (1) Comments: Call for followup appointment in 4 weeks for repeat pelvis xray With: Address: When: Rickey Askew [address] [place] [address] Business (1) In the event [...] YOUR HOSPITAL STAY New Medications [facility] [address], [address] [place] [id number], [phone] ergocalciferol (ergocalciferol 50,000 intl units Cap) 1 [...] had 11 refills done via phone with [place] Last Dose: Next Dose: ribociclib (Kisqali (200 [...] Dose: Next Dose: ri (more content not included)...[facility] MARLEN STALEY :1950 Visit Date:11/01/2022 [...] the operative site, Persistent vomiting [facility] Scheduled Follow-Up Appointments 2022 2:15 PM EDT With: Senthil Caldera DO Where: [facility] New Follow Up Appointments after Discharge Follow Up with Gavino Lugo When: Comments: Call for followup appointment in 4 weeks for repeat pelvis xray Where: [address] [place], [place] [address]Med[employer] (1) Follow Up with Rickey Askew When: In 0 days Where: [address] [place] [address]- Business (1) Medications What How Much When Why Instructions Next Dose New ergocalciferol (ergocalciferol 50,000 intl units Cap) 1 Capsules By Mouth Every 7 days Pickup at [facility] Unchanged anastrozole (anastrozole 1 mg Tab) [...] Once a day (at bedtime) Pharmacy Information [facility]: [address] [place], [place] [phone] Test Results CBC BMP WBC: 6.6 E9/L (11/01/22 22:01:00) Glucose Lvl: 130 mg/dL (11/01/22 22:01:00) RBC: 3.7 E12/L Low (11/01/22 22:01:00) BUN: 26 mg/dL High (11/01/22 22:01:00) HGB: 12.1 gm/dL (11/01/22 22:01:00) Creatinine: 1.3 mg/dL (11/01/22 22:01:00) Hct: 36.5 % (11/01/22 22:01:00) BUN (more content not included)...[facility] Interdisciplinary Note - Case Manageron 09-06-8616Weqqdmgwdhpvqwiif Note - Case ManagerCRM to room to [...] Precert is back and can go to tcu/[facility] BED 56[facility] Comment on above:Result Comment: Electronically Signed By: Florence Ortega\.br\Date and Time Signed: 11/04/22 13:07 EDTCHEMISTRYOrdered By: SYSTEM SYSTEM on 832713-shxpywyjlxovca D3 [Mass/Vol]ng/mLLow30.0 - 100.0 ng/mLNORTHWEST CENTER FOR BE[facility] RemisolInterdisciplinary Note - Case Manageron 85-21-4191Rdsvxfocgypkwtjjm Note - Case ManagerCRM to room to [...] info, white board updated. Anticipated DC onceSNF arrangedSelect [facility] Specialty Hospital - [facility] SouthComment on above:Result Comment: Electronically Signed By: Florence Ortega\.br\Date and Time Signed: 11/03/22 10:38 EDTProgress Note-Physicianon 23-29-2565Kvetsslt Note-PhysicianBasic Information This is a 72-year-old female with a medical history significant for metastatic breast cancer who comes in with pubic rami fracture and physical deconditioning. Assessment/Plan Physical deconditioning Pubic rami fracture Vitamin D deficiency -Spoke with orthopedic surgeon appreciate assistance likely nonoperative weightbearing as toleratedwe will wait for orthopedic surgeon to examine patient. -AP pelvis was ordered -Soraya -PT recommended SNF will send her to [...] q6hr, PRN ergocalciferol 50,000 intl units Cap, 60118 unit(s)= 1 cap(s), Oral, q7day hydrALAZINE 20 mg/mL Inj, 10 mg= 0.5 mL, IV Push, q6hr, PRN kisqali 200mg, Normal Patient Dose, Oral, q24hr lisinopril 10 mg Tab, 10 mg= 1 tab(s), Oral, Daily Lovenox 40 mg/0.4 mL SC Billie, 40 mg= 0.4 mL, SubCutaneous, Daily Charlotte 5/325 Tab, 1 tab(s), Oral, q6hr, PRN [...] placed, she can follow up out pt w/urologyNormalSt. Elizabeth HospitalComment on above:Result Comment: Electronically Signed By: Trevor HANKS, Wyatt\.br\Date and Time Signed: 11/03/22 08:08 EDTRPR with Conf Rfxon 24-43-5488Cujall Ab RPR Ql (S)Non-ReactiveInvalid Interpretation CodeNon ReactiveSt. Elizabeth HospitalComment on above: Result Comment: Performed at: [facility] [address] [id number] PhD Denver AvelarPerformed By: #### [id number], 6468738, 1525697, [id number], [id number] #### [facility] [address] [place] [address]Axikoms D 25 Hydroxyon 239969-delinvymxwqjhx D3 [Mass/Vol]ng/mLLow30.0-100.0St. Elizabeth HospitalComment on above:Result Comment: Vitamin D deficiency has been defined as a level of serum 25-OH vitamin D less than 20 ng/mL (1,2) by the [place] of Medicine and an Endocrine Society practice guideline. The Endocrine Society further defined vitamin D insufficiency as a level between 21 and 29 ng/mL (2). 1. IOM ([place] of Medicine). 2010. Dietary reference intakes for calcium and D. [place]: The National Academies Press. 2. Katlin MF, Taylor [place], Jarad DUKE, et al. Evaluation, treatment, and prevention of vitamin D deficiency: an Endocrine Society clinical practice guideline. JCEM. 2010; 96 (7):1911-30.Performed By: #### [id number] ####[facility] [address] [place], [place] [address]UB Pelvis w/o Contraston 88-12-4455AU Pelvis w/o ContrastExam Date/Time: 11/02/2022 13:54 EDT [...] No Oral contrast amount in ml's: 0NormalFisher [facility] Clinical Summaryon 54-19-6762TE Clinical Summary [address] [address] ED Clinical Summary Person Information Name: MARLEN STALEY/Savita Age: 72 Years : 1950 Sex: Female Language: Lao PCP: Rickey Askew MD Marital Status: Phone: [phone] MRN: Visit Id: Visit Reason: Weakness or fatigue; Trauma - minor; Multiple falls; WEAKNESS, CHEST PAIN Speciality:Acuity: 2 Enc Type: Observation Med Service: Emergency Arrival: 11/01/2022 19:53:41 Discharge: LOS: 000 07:19 Checkin: 11/01/2022 19:53:41 Checkout: 11/02/2022 03:12:35 Dispo Type: Admitted as IP to this [facility] EVENTS: Event Name Event Status Request [...] 11/02/2022 03:12:35 11/02/2022 03:12:35 11/02/2022 03:12:35 ADDRESS: [address] [place] [address] [address] [place] [id number] PHYS DOC NOTES: MEDICAL INFORMATION: Prescriptions Given: [...] deep vein thrombosis (DVT) prophylaxis; [facility] CenterED Note-Physicianon 27-62-4832YF Note-Physician Radiologist has read the x-ray of the sacrum and there is discrepancy. He is reading he has a left pubic rami fracture. The patient has been admitted to the hospital.The hospitalist notified.[facility] SouthComment on above:Result Comment: Electronically Signed By: Trell Avendano, Alok Dexter\.br\Date and Time Signed: 11/02/2306:41 EDTED Note-PhysicianBasic Information Time Seen: Kelly Meredith DO 11/01/2022 20:01 Chief Complaint pt to ED via [facility] with c/o chest bruise from fall earlier today. c/o increasing weakness. denies thinners or hitting head with earlier fall. denies PMH. hx of DM. 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 History of Present Illness Patient is a [...] and Complexity of Problems Differential Diagnosis: [] [facility] Data External documents reviewed: [] My EKG [...] furosemide 40 mg Ta (more content not included)...[facility] SouthComment on above:Result Comment: Electronically Signed By: Kelly Meredith DO.johnnie\Date and Time Signed: 11/02/22 00:27 EDTED Patient Education Note on 53-63-5921NL Patient Education NoteNoAkron Children's Hospital CenterED Patient Summaryon 98-76-5396XF Patient Summary [place] [id number] Patient Discharge Instructions Person Information Name: MARLEN STALEY Age: 72 Years Arrival Date: 11/01/2022 19:53:41 Discharge Diagnosis: 1:Generalized weakness; 2:HTN (hypertension); 3:Hypercholesteremia; 4:History of breast cancer; 5:On deep vein thrombosis (DVT) prophylaxis; Multiple falls Primary Care Physician: Rickey Askew MD Provider Information Primary Provider: Kelly Meredith DO Advanced Route Sales Representative:None The exam and treatment you received in the Emergency Department were for an urgent problem and are not intended as complete care. It is important that you follow up with a doctor, nurse practitioner,or physician?s environmental emergencies assistant for ongoing care. If your symptoms become worse or you do not improve as expected and you are unable to reach your usual health care provider, you should return to the Emergency Department. We are available 24 hours a day. MARLEN STALYE has been given the following list of [...] opioids can be used to help relieve qkebvzkn-li-jrjgtw pain and are often prescribed following a [...] your community drug take- back program or [employer] mail-back program, or flush them down the toilet, following guidance from the Food and Drug Administration (www.fda.gov/Drugs/ResourcesForYou). ? Visit www.cdc.gov/drugoverdose to learn about the risks of opioids abuse and overdose. ? If you believe you may be struggling with addiction, tell your health urgent care physician and ask for guidance or call SAMHSA?S National Helpline at 5-542-438-FLYW. m Source: US Department of Health and Human Servi (more content not included)... [facility] Traumaon 68-65-1244OU Trauma [id number]#[id number]:127NoMercy Health St[address] Charles HospitalFolateOrdered By: SYSTEM SYSTEM on 31-45-6909Erpjlj [Mass/Vol]11.4 ng/mL Normal>=6.7[facility] RemisolComment on above:Performed By: #### 8391171, 5209380, 4776452, [id number], [id number] #### [facility] [address] [place], [place] [address]Yhqmcyxqy Correspondence Officeon 08-00-1239Vyrbapbez Correspondence [id number]#1.00CD:127Normal [facility] Agnes HospitalInterdisciplinary Note - Case Manageron 11-02-2022 Interdisciplinary Note - Case ManagerCRM to room to discuss DC planning. Patient is tearful in room because she cant see her spouse and he cant come to see her here. She would like to see him. Patient is here for weakness, Chest pain. Pa cal has sacral Fx. Patient will be seen [...] spouse she can have a bed on [facility] side. CRM willupdate patient and TCU Patient is okay with [facility] side, she knows that she can visit him and have meals NormalSt. Elizabeth HospitalComment on above:Result Comment: Electronically Signed By: Florence Ortega\.johnnie\Date and Time Signed: 11/02/22 14:23 EDT Interdisciplinary Note - OTon 69-33-4371Mchyjqlgtqojdwvic Note - OTOT AM-PAC 6 Click Score: [...] functional transfers. OT evaluation completed by Michelle Guevara/FLORENCIO under direct supervision from SIVAKUMAR Estrada, OTR/L.[facility] SouthInterdisciplinary Note - Social Workeron 73-36-0738Bqyfzvjejhqluzaat Note - Social WorkerThis SW responded to [...] has a phone call out to her pot annealer to obtain a copy of thisdocumentation if [...] SNF anymore. SW will remain available as needed.[facility] SouthMonitor Recordon 34-25-5770Lwbbjtq Record [id number]:127NormalSt. Elizabeth HospitalProgress Note-Physicianon 62-78-4061Ugyltrlq Note-PhysicianPatient: MARLEN STALEY Age: 72 years Sex: [...] breath. Sulfa drugs- Sob - shortness of breath.[facility] SouthComment on above:Result Comment: Electronically Signed By: Gavino [...] -AP pelvis was ordered -Checking vitamin D -Charlotte Metastatic breast cancer ? Continue with chemotherapeutics [...] % (11/01/22::00) Lymph Auto: 24.6 % (11/01/22::00) [place] Auto: 5 % (11/01/22::) Eos Auto: 3.3 % (11/01/22::00) Basophil Auto: 1.2 % (11/01/22::00) Neutro Absolute: 4.4 E9/L (11/01/22::00) Lymph Absolute: 1.6 E9/L (11/01/22::00) [place] Absolute: 0.3 E9/L (11/01/22::00) Eos Absolute: 0.2 E9/L (11/01/22::00) Basophil Absolute: 0.1 E9/L (11/01/22::00) Glucose Lvl: 130 mg/dL (11/01/22 22:01:00) BUN: 26 mg/dL High (11/01/22::00) Creatinine: 1.3 mg/dL (11/01/22::00) eGFR: 43 mL/min/1.73 m2 Low (11/01/22::00) BUN/Creat Ratio: 20 (11/01/22::00) Sodium Lvl: 138 mmol/L (11/01/22 22::00) Potassium Lvl: 4.2 mmol/L (11/01/22 22::00) Chloride: 105 mmol/L (11/01/22::00) CO2: 22 mmol/L (11/01/22::00) AGAP: 15 mEq/L (11/01/22::00) Calcium Lvl: 9.1 mg/dL (11/01/22::00) Alk Phos: 110 Int._Unit/L High (11/01/22::00) ALT: 13 Int._Unit/L (11/01/22::00) AST: 20 Int._Unit/L (11/01/22::) Total Protein: 6.9 gm/dL (11/01/22::00) Albumin Lvl: 3.5 gm/dL (11/01/22 22::00) Globulin: 3.4 gm/dL (11/01/22::00) A/G Ratio: 1 Low (11/01/22::00) Bili Total: 0.9 mg/dL (11/01/22 22:01:00) Bili Direct: 0.2 mg/dL (11/01/22::00) Bili Indirect: 0.7 mg/dL (11/01/22:01:00) TSH: 0.93 mcIU/mL (11/02/22 06:00:00) Troponin: 7.5 [...] (hypertension) Hypercholesteremia Invasive du (more content not included)...[facility] Comment on above:Result Comment: Electronically Signed By: Trevor HANKS, Wyatt\.br\Date and Time Signed: 11/02/22 12:22 EDTReference Laboratory Testing Ordered By: Generated DomainUser on 51-12-8887Yripqz Ab RPR Ql (S)Non-Reactive Invalid Interpretation CodeNon ReactiveNORTHWEST CENTER FOR BE[facility] SendOutsSSComment on above:Result Comment: Performed at: [facility] [id number] PhD Denver Dalton With T4fr ReflexOrdered By: SYSTEM SYSTEM on 09-61-3251PGO Qn0.93 m[IU]/LNormal0.34-5.60FTMC RemisolComment on above: Performed By: #### 3673237, 8080315, 5400318, [id number], [id number] #### [facility] [address] [place], [place] [address]LY With Cult Reflexon 50-83-3236Atjbdoqd LM Ql (Urine sed)TRACE NormalTraceSt. Elizabeth HospitalComment on above:Order Comment: Urinary Catheter Insertion triggered Urinalysis With Culture Reflex order by discern. Performed By: #### 6086214, 2717303, 5083606, [id number], 56329120 #### [facility] [address] [place] [address]Haokdnjab Ql (U)NegativeNormalNegativeSt. Elizabeth HospitalComment on above:Order Comment: Urinary Catheter Insertion triggered Urinalysis With Culture Reflex order by discern.Performed By: #### 4439367, 8178597, 3225544, 704531285, [id number] #### [facility] [address] [place] [address]Ovrdojt (U)CLEARNormalClearSt. Elizabeth HospitalComment on above:Order Comment: Urinary Catheter Insertion triggered Urinalysis With Culture Reflex order by discern.Performed By: #### 3499755, 4479578, 8749967, 588935657, 62487738 #### [facility] [address] [place] [address]Tefbw (U)YELLOWNormalYellowSt. Elizabeth HospitalComment on above:Order Comment: Urinary Catheter Insertion triggered Urinalysis With Culture Reflex order by discern.Performed By: #### 8362320, 8134270, 8596958, 805352625, 81260462 #### [facility] [address] [place] [address] 288[address]Qdaglwjmve cells.squamous LM.HPF (Urine sed) [#/Area]3-4Normal 0-2Fisher St[facility] Agnes HospitalComment on above:Order Comment: Urinary Catheter Insertion triggered Urinalysis With Culture Reflex order by discern.Performed By: #### 8959925, 2975142, 1766308, 376040452, 02974182 #### [facility] [address] [place], [place] [address]Nonojfl Test strip (U) [Mass/Vol]NegativeNormalNegativeSt. Elizabeth HospitalComment on above:Order Comment: Urinary Catheter Insertion triggered Urinalysis With Culture Reflex order by discern.Performed By: #### 3050314, 0027695, 5517718, 378526130, 98701275 #### [facility] [address] [place], [place] [address]Qjrrfdpgcw Ql (U)TRACEAbnormalNegOhioHealth Southeastern Medical CenterComment on above:Order Comment: Urinary Catheter Insertion triggered Urinalysis With Culture Reflex order by discern.Performed By: #### 6598307, 9282450, 5744653, 529203487, [id number] #### [facility] [address] [place] [address]Zgewfkr (U) [Mass/Vol]TRACEAbnormalNegativeSt. Elizabeth HospitalComment on above:Order Comment: Urinary Catheter Insertion triggered Urinalysis With Culture Reflex order by discern.Performed By: #### 6709635, 7592851, 9619802, 495898439, 23527397 #### [facility] [address] [place] [address] 10[address]Dkhxeco.plasma/Dimmitt.RBC (Bld) [Mass ratio]7-69Iveryd6-6 St[facility] Elizabeth HospitalComment on above:Order Comment: Urinary Catheter Insertion triggered Urinalysis With Culture Reflex order by discern.Performed By: #### 6142102, 7848681, 0365146, 336231320, 01288011 #### [facility] [address] [place], [place] [address]Nwpholy Ql (U)NegativeNormalNegOhioHealth Southeastern Medical Center Comment on above:Order Comment: Urinary Catheter Insertion triggered Urinalysis With Culture Reflex order by discern.Performed By: #### 0834397, 5785137, 5071575, 632795382, 08059889 #### [facility] [address] [place] [address] 21175vZ (U)6.0 [pH]Invalid Interpretation Code5.0-9.0St. Elizabeth HospitalComment on above:Order Comment: Urinary Catheter Insertion triggered Urinalysis With Culture Reflex order by discern.Performed By: #### 4406968, 2442830, 1365028, 226363321, 44235073 #### [facility] [address] [place] [address]Pzqdqzc (U) [Mass/Vol]TRACEAbnormalNegativeSt. Elizabeth HospitalComment on above:Order Comment: Urinary Catheter Insertion triggered Urinalysis With Culture Reflex order by discern.Performed By: #### 3941965, 2007762, 4036233, 833613295, 98852020 #### [facility] [address] [place] [address]Czykenle gravity (U) [Rel density]1.025Invalid Interpretation Code1.005-1.030St. Elizabeth HospitalComment on above:Order Comment: Urinary Catheter Insertion triggered Urinalysis With Culture Reflex order by discern.Performed By: #### 9968146, 5643371, 0973970, 806022433, 33321359 #### [facility] [address] [place] [address]Ehwi of Urine collection methodCatheterNormalSt. Elizabeth HospitalComment on above:Order Comment: Urinary Catheter Insertion triggered Urinalysis With Culture Reflex order by discern.Performed By: #### 0908943, 3838267, 3103482, 418130160, 22912092 #### [facility] [address] [place] [address]Igkasurluxlr Qn (U)1.0 {Tj'U}/dLNormal0.0-1.0St. Elizabeth HospitalComment on above:Order Comment: Urinary Catheter Insertion triggered Urinalysis With Culture Reflex order by discern.Performed By: #### 6518332, 4565841, 6117025, 245077408, 17931539 #### [facility] [address] [place] [address]DEQ Auto Ql (U)NegativeNormalNegativeFisher St. Agnes HospitalComment on above:Order Comment: Urinary Catheter Insertion triggered Urinalysis With Culture Reflex order by discern.Performed By: #### 1774003, 7862665, 4587714, 417363582, 91547480 #### [facility] [address] [place], [place] [address]EYE LM.HPF (Urine sed) [#/Area]2-7Bpfbfo8-4Wkzyxw St[facility] Agnes HospitalComment on above:Order Comment: Urinary Catheter Insertion triggered Urinalysis With Culture Reflex order by discern.Performed By: #### 7591557, 8461908, 1312014, 270295945, 09096471 #### [facility] [address] [place], [place] [address]TJQANALLFJKqfvpdl By: Dianne Villa on 54-52-4172Wqzfckoj LM Ql (Urine sed)Trace /HPFNormalTrace/HPFFT UA Auto SSBilirubin Ql (U)Negative (11/02/22 5:30 PM)NormalNegativeNORTHWEST [facility] UA Auto SSClarity (U)Clear (11/02/22 5:30 PM)NormalClearFTULSA SPINE & [facility] UA Auto SSColor (U)Yellow (11/02/22 5:30 PM)NormalYellowNORTHWEST CENTER FOR BE[facility] UA Auto SSEpithelial cells.squamous LM.HPF (Urine sed) [#/Area]3-4 /HPFNormal0-2/HPFFTMC UA Auto SSGlucose Test strip (U) [Mass/Vol]Negative (11/02/22 5:30 PM)NormalNegativeNORTHWEST [facility] UA Auto SSHemoglobin Ql (U)Trace *ABN* (11/02/22 5:30 PM)Invalid Interpretation CodeNegativeNORTHWEST [facility] UA Auto SSKetones (U) [Mass/Vol]Trace *ABN* (11/02/22 5:30 PM)Invalid Interpretation CodeNegativeNORTHWEST [facility] UA Auto SS Dimmitt.plasma/Dimmitt.RBC (Bld) [Mass ratio]4-20 /HPFNormal0-3/HPFFTMC UA Auto SSNitrite Ql (U)Negative (11/02/22 5:30 PM)NormalNegativeFTMC UA Auto SSpH (U)6.0 *NA* (11/02/22 5:30 PM)Invalid Interpretation Code5.0 - 9.0[facility] UA Auto SSProtein (U) [Mass/Vol]Trace *ABN* (11/02/22 5:30 PM)Invalid Interpretation CodeNegativeFT UA Auto SSSpecific gravity (U) [Rel density]1.025 *NA* (11/02/22 5:30 PM)Invalid Interpretation Code1.005 - 1.030[facility] UA Auto SSUA Spec DescCatheter (11/02/22 5:30 PM)NormalNORTHWEST CENTER FOR BEHAV[facility] UA Auto SSUrobilinogen Qn (U)1.9963594 {Tj'U}/dLNormal0.0 - 1.0 EU/dLNORTHWEST CENTER FOR BE[facility]AV[facility] UA Auto SSWBC Auto Ql (U)Negative (11/02/22 5:30 PM)NormalNegativeNORTHWEST [facility] UA Auto SSWBC LM.HPF (Urine sed) [#/Area]0-5 /HPFNormal0-5/HPFNORTHWEST CENTER FOR BE[facility]AV[facility] UA Auto SSVit A58Kdgqhkl By: SYSTEM SYSTEM on 11-02-2022 Cobalamin (Vitamin B12) [Mass/Vol]470 pg/nKHovrwd45-9795DTNT RemisolComment on above:Performed By: #### 9142437, 5085085, 1437113, 227664449, 08238115 #### [facility] [address] [place] [address] 27[address]FY Chest Single Viewon 60-67-3720FR Chest Single ViewExam Date/Time: 11/01/2022 23:11 EDT [...] Ka,r in mGy = na DAP = [facility]XR Pelvis 1 or 2 Viewson 00-72-3106IY Pelvis 1 or 2 ViewsExam Date/Time: 11/02/2022 [...] Ka,r in mGy = na DAP = [facility] HospitalXR Sacrum and Coccyx Min 2 Viewson 93-30-5044ZC Sacrum and Coccyx Min 2 ViewsExam Date/Time: [...] Cody Cm M.D., DISAGREE Fx. lt. pubic ramiNormalSt. Elizabeth HospitalAuto Diffon 11-01-2022 Basophils/100 WBC (Bld)1.2 %Normal0.0-2.0St. Elizabeth HospitalComment on above:Order Comment: Order Added by Discern Expert.Performed By: #### 1314528, 4283464, 2374940, 681498546, 82521227 #### [facility] [address] [place] [address]10[address]Qkcycjbzx/Leukocytes Auto (Bld) [Pure # fraction]0.1 E9/LNormal 0.0-0.2Fisher St[facility] Agnes HospitalComment on above:Order Comment: Order Added by Discern Expert.Performed By: #### 7458245, 8835873, 4748001, 419506039, 04027966 #### [facility] [address] [place], [place] [address]Chvkfcthsig/100 WBC (Bld)3.3 %Normal0.0-8.0St. Elizabeth HospitalComment on above:Order Comment: Order Added by Discern Expert.Performed By: #### 6036561, 6025025, 4528848, 389319437, 00753809 #### [facility] [address] [place], [place] [address]Nakobudoziz/Leukocytes Auto (Bld) [Pure # fraction]0.2 E9/L Normal0.0-0.5Fisher St[facility] Agnes HospitalComment on above:Order Comment: Order Added by Discern Expert.Performed By: #### 3096607, 1067848, 7294386, 752877699, 95979504 #### [facility] [address] [place], [place] [address]Ltpmtjgbtdm/100 WBC (Bld)24.6 %Ywhdcm51.0-50.0St. Elizabeth HospitalComment on above:Order Comment: Order Added by Discern Expert. Performed By: #### 1396856, 2288772, 8368883, 984785685, 52539111 #### [facility] [address] [place] [address] 12[address]Vcmyodmzzhx/Leukocytes Auto (Bld) [Pure # fraction]1.6 E9/L Normal1.0-4.0St. Elizabeth HospitalComment on above:Order Comment: Order Added by Discern Expert.Performed By: #### 9989731, 2001715, 2257170, 612138401, 00302740 #### [facility] [address] [place] [address]46[address]Nxmeklcmg/100 WBC (Bld)5.0 %Normal4.0-14.0[facility] HospitalComment on above:Order Comment: Order Added by Discern Expert.Performed By: #### [id number], 1169133, 6091270, [id number], 04475532 #### [facility] [address] [place] [address] 50660Obpkdhuzp/Leukocytes Auto (Bld) [Pure # fraction]0.3 E9/LNormal 0.2-1.0[facility] HospitalComment on above:Order Comment: Order Added by Discern Expert.Performed By: #### 6477162, 5579895, 0136677, 176082126, 13435793 #### [facility] [address] [place] [address] 77837Uneoyskozxv/100 WBC (Bld)65.9 %Zwgqro91.0-75.0[facility] HospitalComment on above:Order Comment: Order Added by Discern Expert. Performed By: #### 6826559, 5517840, 6007323, 252937105, 94433581 #### [facility] [address] [place] [address] 55258Mgtzhldtjpj/Leukocytes Auto (Bld) [Pure # fraction]4.4 E9/L Normal2.0-7.5FLakeHealth Beachwood Medical CenterComment on above:Order Comment: Order Added by Discern Expert.Performed By: #### 4267969, 0714058, 0724471, 194925088, 89479616 #### [facility] [address] [place] [address] 79866SALff 49-26-5831Ivhhqirbml [Mass/Vol]1.3 mg/dLNormal0.5-1.3 [facility] HospitalComment on above:Performed By: #### 1585333, 7377618, 9318206, 726425528, 60539468 #### [facility] [address] [place], [place] [address]Zdpx nitrogen [Mass/Vol]26 mg/dLHigh5-21St. [facility] HospitalComment on above:Performed By: #### 2717600, 0387263, 6322007, 754538409, 33834466 #### [facility] [address] [place] [address] 81574Udmd nitrogen/Creatinine [Mass ratio]20 No HtqwlRnntal83-56 [facility] HospitalComment on above:Performed By: #### 2184165, 6558783, 5894708, 919470626, 37302918 #### [facility] [address] [place] [address] 54746Lvlbz gap [Moles/Vol]15 mmol/LNormal6-16[facility] HospitalComment on above:Performed By: #### 4172477, 9669729, 3696298, 719834287, 99185676 #### [facility] [address] [place] [address] 54925Kwjyten [Mass/Vol]9.1 mg/dLNormal8.9-11.1FLakeHealth Beachwood Medical CenterComment on above:Performed By: #### 9017411, 5689209, 3607032, 753245552, 21381385 #### [facility] [address] [place] [address] 14955Sbyhvysm [Moles/Vol]105 mmol/TRwuwvb318-871MpcuhqSt. Elizabeth HospitalComment on above:Performed By: #### 3411295, 1852185, 9731497, 721747313, 53067495 #### [facility] [address] [place], [place] [address]US7 [Moles/Vol]22 mmol/ILqnfiu93-13QsdkuvSt. Elizabeth Hospital Comment on above:Performed By: #### 5765818, 4853189, 6504429, 479961172, 38103397 #### [facility] [address] [place], [place] [address]Euetrvm [Mass/Vol]130 mg/cDOzlbns17-146AsmaprSt. Elizabeth HospitalComment on above:Result Comment: If this glucose result represents a fasting glucose, interpretation should refer tothe following reference range: 55-99 mg/dLPerformed By: #### 2631645, 1915498, 9857400, 301083773, 31164087 #### [facility] [address] [place] [address] 13808Imlzdjytx [Moles/Vol]4.2 mmol/LNormal3.5-5.3FLakeHealth Beachwood Medical CenterComment on above:Performed By: #### 7534500, 9728494, 7715182, 953061410, 53460250 #### [facility] [address] [place] [address] 62034Gakkzu [Moles/Vol]138 mmol/SHzuvam516-263PxupscSt. Elizabeth HospitalComment on above:Performed By: #### 7924101, 8926854, 1944499, 298498883, 61743867 #### [facility] [address] [place] [address] 09703HAM w/ Auto Diffon 86-38-2202Jsvgyyyvleq distribution width (RBC) [Ratio]16.3 %High10.9-14.2FLakeHealth Beachwood Medical CenterComment on above: Performed By: #### 6343520, 8017860, 8506397, 060298999, 47593957 #### [facility] [address] [place] [address] 65848Qblvsibbdz (Bld) [Volume fraction]36.5 %Mlghtz28.0-46.0[facility] HospitalComment on above:Performed By: #### 9785545, 0360717, 3482538, 645740251, 79773991 #### [facility] [address] [place] [address] 09040Tgwhrdedjl (Bld) [Mass/Vol]12.1 g/qHAmwrtg06.0-16.0[facility] HospitalComment on above:Performed By: #### 5969532, 2600860, 4684633, 657373564, 79712761 #### [facility] [address] [place] [address] 73204JRL (RBC) [Entitic mass]32.9 dpCtboxp59.0-34.0[facility] HospitalComment on above:Performed By: #### 2653336, 1685239, 4875713, 910610205, 32098696 #### [facility] [address] [place] [address] 92663JVRI (RBC) [Mass/Vol]33.1 g/rEWdlfef28.4-36.0[facility] HospitalComment on above:Performed By: #### 7602883, 1908131, 1609101, 290746914, 14295650 #### [facility] [address] [place] [address] 35081IYG (RBC) [Entitic vol]99.3 lKWzepqi89.0-100.0[facility] HospitalComment on above:Performed By: #### 1312349, 5509765, 7817499, 094705758, 96750588 #### [facility] [address] [place] [address] 26620Jdxsoiio mean volume (Bld) [Entitic vol]7.3 fLNormal6.4-10.8 [facility] HospitalComment on above:Performed By: #### 8975736, 0171223, 5507047, 773105490, 01466285 #### [facility] [address] [place], [place] [address]Ujiqyqtxc (Bld) [#/Vol]229.0 E9/SJmfgeq575.0-500.0[facility] HospitalComment on above:Performed By: #### 0870883, 6193959, 9838813, 699899822, 44402104 #### [place] [facility] [address] [place], [place] [address]LXK (Bld) [#/Vol]3.7 E12/LLow4.3-5.9[facility] Comment on above:Performed By: #### 7639988, 3458020, 2020617, 948013004, 69347849 #### [address] [facility] [address] [place], [place] [address]IUU corrected for nucl RBC Auto (Bld) [#/Vol]6.6 E9/LNormal 4.0-11.0[facility] HospitalComment on above:Performed By: #### 1199699, 8026141, 4692834, 374364831, 77167579 #### [facility] [address] [place], [place] [address]BCYFQARKKExtloge By: SYSTEM SYSTEM on 28-96-5815Tfpqhcl [Mass/Vol]3.5 g/dLNormal3.3 - 5.0 gm/dLFTMC RemisolAlbumin/Globulin [Mass [...] [Mass/Vol]9.1 mg/dLNormal8.9 - 11.1 mg/dLFTMC RemisolChloride [Moles/Vol]105 mmol/OWtbpnt250 - 111 mmol/LFTMC RemisolCO2 [Moles/Vol]22 mmol/L Obbvpo76 - 31 mmol/LFTMC RemisolCreatinine [Mass/Vol]1.3 mg/dLNormal0.5 - 1.3 mg/dLFTMC RemisolGFR/1.73 sq M.predicted among non-blacks MDRD (S/P/Bld) [Vol rate/Area]43 mL/min/1.73 m2Low>=59mL/min/1.73 m2FT Chem SGlobulin (S) [Mass/Vol]3.4 g/dLNormal1.4 - 4.0 gm/dLFT RemisolGlucose [Mass/Vol]130 mg/dL Gyrcsq32 - 199 mg/dLFTMC RemisolPotassium [Moles/Vol]4.2 mmol/LNormal3.5 - 5.3 mmol/LFTMC RemisolProtein [Mass/Vol]6.9 g/dLNormal6.0 - 7.8 gm/dLFT Remisol Sodium [Moles/Vol]138 mmol/XOomlrj494 - 145 mmol/LFTMC RemisolTroponin I.cardiac [Mass/Vol]7.50 pg/mLLow10.10 - 27.10 pg/mLFT RemisolUrea nitrogen [Mass/Vol] 26 mg/dLHigh5 - 21 mg/dLFTMC RemisolUrea nitrogen/Creatinine [Mass ratio]20 mg/sxPqigbu57 - 20FTMC RemisolConsent for Treatmenton 34-75-1715Ogonojo for [id number]#1.00CD:127[facility] SouthHEMATOLOGYOrdered By: SYSTEM SYSTEM on 82-16-3641Sdwlzkklq/100 WBC (Bld)1.2 %Normal0.0 - 2.0 %[facility] HemeAutoSSBasophils/Leukocytes Auto (Bld) [Pure # fraction]0.1 E9/LNormal0.0 - 0.2 E9/LFTMC HemeAutoSSEosinophils/100 WBC (Bld) 3.3 %Normal0.0 - 8.0 %[facility] HemeAutoSSEosinophils/Leukocytes Auto (Bld) [Pure # fraction]0.2 E9/LNormal0.0 - 0.5 E9/LFTMC HemeAutoSSLymphocytes/100 WBC (Bld) 24.6 %Fagbyk00.0 - 50.0 %[facility] HemeAutoSSLymphocytes/Leukocytes Auto (Bld) [Pure # fraction]1.6 E9/LNormal1.0 - 4.0 E9/LFTMC HemeAutoSSMonocytes/100 WBC (Bld)5.0 %Normal4.0 - 14.0 %[facility] HemeAutoSSMonocytes/Leukocytes Auto (Bld) [Pure # fraction]0.3 E9/LNormal0.2 - 1.0 E9/LFTMC HemeAutoSSNeutrophils/100 WBC (Bld) 65.9 %Ioyxiz55.0 - 75.0 %[facility] HemeAutoSSNeutrophils/Leukocytes Auto (Bld) [Pure # fraction]4.4 E9/LNormal2.0 - 7.5 E9/LFTMC HemeAutoSSHEMATOLOGYOrdered By: Rebecca Valenzuela on 92-22-7157Gqvircylxtv distribution width (RBC) [Ratio]16.3 % High10.9 - 14.2 %[facility] HemeAutoSSHematocrit (Bld) [Volume fraction]36.5 %Normal 34.0 - 46.0 %[facility] HemeAutoSSHemoglobin (Bld) [Mass/Vol]12.1 g/oZCzadzc32.0 - 16.0 gm/dLFTMC HemeAutoSSMCH (RBC) [Entitic mass]32.9 krLtbubb82.0 - 34.0 pgFTMC HemeAutoSSMCHC (RBC) [Mass/Vol]33.1 g/nTYsdfpc56.4 - 36.0 gm/dLNORTHWEST [facility] HemeAutoSS MCV (RBC) [Entitic vol]99.3 rDQcmcsc77.0 - 100.0 fLNORTHWEST CENTER FOR [facility] HemeAutoSSPlatelet mean volume (Bld) [Entitic vol]7.3 fLNormal6.4 - 10.8 fLNORTHWEST CENTER [facility] HemeAutoSSPlatelets (Bld) [#/Vol]229.0 E9/QKucwkl450.0 - 500.0 E9/[facility] HemeAutoSSRBC (Bld) [#/Vol] 3.7 E12/LLow4.3 - 5.9 E12/[facility] HemeAutoSSWBC corrected for nucl RBC Auto (Bld) [#/Vol]6.6 E9/LNormal4.0 - 11.0 /[facility] HemeAutoSSHep Func Panelon 11-01-2022 Albumin [Mass/Vol]3.5 g/dLNormal3.3-5.0[facility] HospitalComment on above:Performed By: #### 7393707, 5518518, 5172163, 595081989, 64852545 #### [place] [facility] [address] [place], [place] [address]Chksclw/Globulin (S) [Mass conc ratio]1.0Low1.1-2.2Fisher St. Agnes HospitalComment on above:Performed By: #### 0726673, 8136429, 8936316, 363152634, 67304969 #### [place] [facility] [address] [place], [place] [address]RPD [Catalytic activity/Vol]110 Int._Unit/LOrvq04-92AdhwocSt. Elizabeth HospitalComment on above:Performed By: #### 0688938, 9570141, 0923104, 601063103, 67994901 #### [address] [facility] [address] [place], [place] [address]AQI No additional P-5'-P [Catalytic activity/Vol]13 Int._Unit/L Normal6-46[facility]. [facility] HospitalComment on above:Performed By: #### 8571763, 8215226, 6708259, 988116767, 56514530 #### [facility] [address] [place] [address] 80271DSB [Catalytic activity/Vol]20 Int._Unit/LNormal5-43[facility]. [facility] HospitalComment on above:Performed By: #### 3615893, 5142007, 5813399, 330422307, 12585415 #### [facility] [address] [place] [address] 17923Ztkevcwcl [Mass/Vol]0.9 mg/dLNormal0.0-1.1FLakeHealth Beachwood Medical CenterComment on above:Performed By: #### 8527373, 5874476, 3676944, 791459486, 98098232 #### [facility] [address] [place] [address]37[address]Vfldrrkfp.direct [Mass/Vol]0.2 mg/dLNormal0.1-0.4FLakeHealth Beachwood Medical CenterComment on above:Performed By: #### 0433199, 4647119, 9371454, 472780390, 35866007 #### [facility] [address] [place] [address]Edfzmctib.indirect [Mass or moles/Vol]0.7 mg/dLNormal0.1-0.9 [facility] HospitalComment on above:Performed By: #### 1099752, 2258219, 5908585, 247070331, 35809014 #### [facility] [address] [place] [address] 34707Wxnajlzp (S) [Mass/Vol]3.4 g/dLNormal1.4-4.0[facility] HospitalComment on above:Performed By: #### 3948020, 8683295, 7515886, 372271510, 40994714 #### [facility] [address] [place] [address] 38092Lprbkpg [Mass/Vol]6.9 g/dLNormal6.0-7.8[facility] HospitalComment on above:Performed By: #### 4087853, 5718279, 4024550, 685455391, 77777276 #### [facility] [address] [place], [place] [address]Lrcweske 0 Hr.on 19-75-6183Zristpsw I.cardiac [Mass/Vol]7.50 pg/mLLow10.10-27.10St[facility] HospitalComment on above:Result Comment: The 95% CI (Confidence Interval) PPV (Positive Predictive Value) for myocardial infarction in females is 38 pg/mL, in males 51 pg/mL. The results should be used in conjunction with clinical conditions of myocardial infarction. (Access High Sensitivity Troponin I Instructions For Use, [employer], November 2017)Performed By: #### 2320619, 3789984, 0524430, 038982575, 41040735 #### [facility] [address] [place], [place] [address]WN With Cult Reflexon 32-29-4517Scnzzqaef Ql (U)NegativeNormal NegativeSt. Elizabeth HospitalComment on above:Performed By: #### [id number] ####[address] [place] [address] Clarity (U)SL CLOUDYInvalid Interpretation CodeSt. Elizabeth Hospital Comment on above:Performed By: #### 85687930 ####[address] [place], [place] [address]Vysud (U)YELLOWNormalYellowSt. Elizabeth HospitalComment on above:Performed By: #### 65266532 ####[address] [place], [place] [address]Fmvldrzwsa cells.squamous LM.HPF (Urine sed) [#/Area]5-8Bubxln5-9Dyhxdh St. Agnes HospitalComment on above:Performed By: #### 68972478 ####[address] [place], [place] [address]Nbdejkt Test strip (U) [Mass/Vol]NegativeNormalNegativeSt. Elizabeth HospitalComment on above: Performed By: #### 86728230 ####[address] [address]Twnxagitxu Ql (U)3+AbnormalNegativeSt. Elizabeth HospitalComment on above:Performed By: #### [id number] ####[address] [address]Hhoofop (U) [Mass/Vol] TRACEInvalid Interpretation CodeNegativeSt. Elizabeth HospitalComment on above:Performed By: #### [id number] ####[address] [address]Lpzeuzd.plasma/Dimmitt.RBC (Bld) [Mass ratio]21-30 Abnormal0-3FLakeHealth Beachwood Medical CenterComment on above:Performed By: #### 56549879 ####[address] [address]Nmcje Ql (Urine sed)1+NormalSt. Elizabeth HospitalComment on above: Performed By: #### 33779656 ####[address] [address]Zcvrano Ql (U)NegativeNormalNegativeSt. Elizabeth HospitalComment on above:Performed By: #### 73178044 ####[address] [address]yC (U)6.0 [pH]Invalid Interpretation Code5.0-9.0St. [facility] HospitalComment on above:Performed By: #### 68477102 ####[address] [address]Ajafazl (U) [Mass/Vol]1+AbnormalNegativeSt. Elizabeth HospitalComment on above:Performed By: #### 72720110 ####[address] [address]Bfizudvc gravity (U) [Rel density]1.025Invalid Interpretation Code1.005-1.030[facility] Comment on above:Performed By: #### 89258917 ####[address] [address]Ymld of Urine collection methodClean CatchNormalSt. Elizabeth HospitalComment on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 Int._Unit/L[facility] RemisolALT No additional P-5'-P [Catalytic activity/Vol]14 [iU]/dNormal6 - 46 Int._Unit/L[facility] RemisolAnion gap [Moles/Vol]13 mmol/LNormal6 - 16 mEq/L[facility] RemisolAST [Catalytic activity/Vol]17 [iU]/dNormal5 - 43 Int._Unit/L[facility] RemisolBilirubin [Mass/Vol]0.7 mg/dLNormal0.0 - 1.1 mg/dLFT[facility] RemisolCalcium [Mass/Vol]9.0 mg/dL Normal8.9 - 11.1 mg/dLFT[facility] RemisolChloride [Moles/Vol]106 mmol/QKulfdg762 - 111 mmol/LFT[facility] RemisolCO2 [Moles/Vol]22 mmol/SAcogta81 - 31 mmol/L[facility] Remisol Creatinine [Mass/Vol]1.6 mg/dLHigh0.5 - 1.3 mg/dLFT[facility] RemisolGFR/1.73 sq M.predicted among blacks MDRD (S/P/Bld) [Vol rate/Area]38 mL/min/1.73 m2Low >=59mL/min/1.73 m2[facility] Chem SGFR/1.73 sq M.predicted among non-blacks MDRD (S/P/Bld) [Vol rate/Area]32 mL/min/1.73 m2Low>=59mL/min/1.73 m2FT Chem S Globulin (S) [Mass/Vol]3.5 g/dLNormal1.4 - 4.0 gm/dLFT[facility] RemisolGlucose [Mass/Vol]222 mg/rFXlff11 - 199 mg/dLFT[facility] RemisolPotassium [Moles/Vol]4.5 mmol/L Normal3.5 - 5.3 mmol/L[facility] RemisolProtein [Mass/Vol]7.2 g/dLNormal6.0 - 7.8 gm/dLFT[facility] RemisolSodium [Moles/Vol]136 mmol/AKzhixx965 - 145 mmol/LFT[facility] Remisol Urea nitrogen [Mass/Vol]30 mg/dLHigh5 - 21 mg/dLFT[facility] RemisolUrea nitrogen/Creatinine [Mass ratio]19 mg/leNddgge35 - 20[facility] RemisolHEMATOLOGY Ordered By: SYSTEM SYSTEM on 68-92-7096Nrfpwqvqf/100 WBC (Bld)3.1 %High0.0 - 2.0 %[facility] HemeAutoSSBasophils/Leukocytes Auto (Bld) [Pure # fraction]0.2 E9/LNormal 0.0 - 0.2 E9/LFT[facility] HemeAutoSSEosinophils/100 WBC (Bld)3.1 %Normal0.0 - 8.0 %[facility] HemeAutoSSEosinophils/Leukocytes Auto (Bld) [Pure # fraction]0.2 E9/LNormal0.0 - 0.5 E9/LFT[facility] HemeAutoSSLymphocytes/100 WBC (Bld)21.4 %Hcxzfd76.0 - 50.0 %[facility] HemeAutoSSLymphocytes/Leukocytes Auto (Bld) [Pure # fraction]1.4 E9/LNormal1.0 - 4.0 E9/L[facility] HemeAutoSSMonocytes/100 WBC (Bld)5.5 %Normal4.0 - 14.0 %[facility] HemeAutoSSMonocytes/Leukocytes Auto (Bld) [Pure # fraction]0.4 E9/LNormal0.2 - 1.0 E9/L[facility] HemeAutoSSNeutrophils/100 WBC (Bld)66.9 %Gkalfl07.0 - 75.0 %[facility] HemeAutoSSNeutrophils/Leukocytes Auto (Bld) [Pure # fraction]4.4 E9/LNormal2.0 - 7.5 E9/L[facility] HemeAutoSSHEMATOLOGYOrdered By: Gavino Lyle on 12-26-2021 Erythrocyte distribution width (RBC) [Ratio]15.1 %High10.9 - 14.2 %[facility] HemeAutoSSHematocrit (Bld) [Volume fraction]39.8 %Gcfgbg34.0 - 46.0 %[facility] HemeAutoSSHemoglobin (Bld) [Mass/Vol]13.3 g/sFDgmoke11.0 - 16.0 gm/dLFTMC HemeAutoSSMCH (RBC) [Entitic mass]33.9 eeLttstx69.0 - 34.0 pgFTMC HemeAutoSSMCHC (RBC) [Mass/Vol]33.4 g/eKCxoewy22.4 - 36.0 gm/dLFTMC HemeAutoSSMCV (RBC) [Entitic vol]101.6 hTNcym07.0 - 100.0 fLFTMC HemeAutoSSPlatelet mean volume (Bld) [Entitic vol]7.8 fLNormal6.4 - 10.8 fLFT[facility] HemeAutoSSPlatelets (Bld) [#/Vol]267.0 E9/UTmjrpo327.0 - 500.0 E9/LFT[facility] HemeAutoSSRBC (Bld) [#/Vol]3.9 E12/LLow4.3 - 5.9 E12/L[facility] HemeAutoSSWBC corrected for nucl RBC Auto (Bld) [#/Vol]6.7 E9/LNormal4.0 - 11.0 E9/L[facility] HemeAutoSSCHEMISTRYOrdered By: SYSTEM SYSTEM on 39-09-2883Qopfnlz [Mass/Vol]3.6 g/dLNormal3.3 - 5.0 gm/dLFT[facility] Remisol Albumin/Globulin [Mass ratio]1.1 {ratio}Normal1.1 - 2.2[facility] RemisolALP [Catalytic activity/Vol]103 [iU]/dHigh21 - 98 Int._Unit/L[facility] RemisolALT No additional P-5'-P [Catalytic activity/Vol]16 [iU]/dNormal6 - 46 Int._Unit/L[facility] RemisolAnion gap [Moles/Vol]13 mmol/LNormal6 - 16 mEq/L[facility] RemisolAST [Catalytic activity/Vol]16 [iU]/dNormal5 - 43 Int._Unit/L[facility] RemisolBilirubin [Mass/Vol]1.0 mg/dLNormal0.0 - 1.1 mg/dLFT RemisolCalcium [Mass/Vol]8.9 mg/dL Normal8.9 - 11.1 mg/dLFTMC RemisolChloride [Moles/Vol]106 mmol/SRuktvn056 - 111 mmol/LFT[facility] RemisolCO2 [Moles/Vol]21 mmol/BShousu46 - 31 mmol/LFT[facility] Remisol Creatinine [Mass/Vol]2.4 mg/dLHigh0.5 - 1.3 mg/dLFT RemisolGFR/1.73 sq M.predicted among blacks MDRD (S/P/Bld) [Vol rate/Area]24 mL/min/1.73 m2Low >=59mL/min/1.73 m2FT Chem SGFR/1.73 sq M.predicted among non-blacks MDRD (S/P/Bld) [Vol rate/Area]20 mL/min/1.73 m2Low>=59mL/min/1.73 m2[facility] Chem S Globulin (S) [Mass/Vol]3.2 g/dLNormal1.4 - 4.0 gm/dLFTMC RemisolGlucose [Mass/Vol]136 mg/iRIqhbjq45 - 199 mg/dLFTMC RemisolPotassium [Moles/Vol]4.4 mmol/LNormal3.5 - 5.3 mmol/LFT[facility] RemisolProtein [Mass/Vol]6.8 g/dLNormal6.0 - 7.8 gm/dLFT[facility] RemisolSodium [Moles/Vol]136 mmol/JFzgxqd974 - 145 mmol/LFT[facility] RemisolUrea nitrogen [Mass/Vol]41 mg/dLHigh5 - 21 mg/dLFTMC RemisolUrea nitrogen/Creatinine [Mass ratio]17 mg/cuJuoqcu95 - 20[facility] RemisolHEMATOLOGY Ordered By: SYSTEM SYSTEM on 60-64-8478Xxipectaj/100 WBC (Bld)3.6 %High0.0 - 2.0 %[facility] HemeAutoSSBasophils/Leukocytes Auto (Bld) [Pure # fraction]0.2 E9/LNormal 0.0 - 0.2 E9/LFT[facility] HemeAutoSSEosinophils/100 WBC (Bld)1.7 %Normal0.0 - 8.0 %[facility] HemeAutoSSEosinophils/Leukocytes Auto (Bld) [Pure # fraction]0.1 E9/LNormal0.0 - 0.5 E9/LFT[facility] HemeAutoSSLymphocytes/100 WBC (Bld)22.2 %Iauuvg97.0 - 50.0 %[facility] HemeAutoSSLymphocytes/Leukocytes Auto (Bld) [Pure # fraction]1.0 E9/LNormal1.0 - 4.0 E9/LFT[facility] HemeAutoSSMonocytes/100 WBC (Bld)5.2 %Normal4.0 - 14.0 %[facility] HemeAutoSSMonocytes/Leukocytes Auto (Bld) [Pure # fraction]0.2 E9/LNormal0.2 - 1.0 E9/LFT[facility] HemeAutoSSNeutrophils/100 WBC (Bld)67.3 %Tgvuma25.0 - 75.0 %[facility] HemeAutoSSNeutrophils/Leukocytes Auto (Bld) [Pure # fraction]3.2 E9/LNormal2.0 - 7.5 E9/LFT[facility] HemeAutoSSHEMATOLOGYOrdered By: Helen Durán on 11-27-2021 Erythrocyte distribution width (RBC) [Ratio]19.9 %High10.9 - 14.2 %[facility] HemeAutoSSHematocrit (Bld) [Volume fraction]35.7 %Odhbur20.0 - 46.0 %[facility] HemeAutoSSHemoglobin (Bld) [Mass/Vol]12.3 g/yLNqtczr53.0 - 16.0 gm/dLFTMC HemeAutoSSMCH (RBC) [Entitic mass]34.7 miWtbq78.0 - 34.0 pgFTMC HemeAutoSSMCHC (RBC) [Mass/Vol]34.5 g/hQSgvfrl45.4 - 36.0 gm/dLFTMC HemeAutoSSMCV (RBC) [Entitic vol]100.3 qGNxzj67.0 - 100.0 fLFTMC HemeAutoSSPlatelet mean volume (Bld) [Entitic vol]6.9 fLNormal6.4 - 10.8 fLFTMC HemeAutoSSPlatelets (Bld) [#/Vol]464.0 E9/IRnkwyu057.0 - 500.0 E9/LFT[facility] HemeAutoSSRBC (Bld) [#/Vol]3.6 E12/LLow4.3 - 5.9 E12/L[facility] HemeAutoSSWBC corrected for nucl RBC Auto (Bld) [#/Vol]4.7 E9/LNormal4.0 - 11.0 E9/L[facility] HemeAutoSSCHEMISTRYOrdered By: SYSTEM SYSTEM on [id number] [Mass/Vol]3.7 g/dLNormal3.3 - 5.0 gm/dLFTMC Remisol Albumin/Globulin [Mass ratio]1.2 {ratio}Normal1.1 - 2.2[facility] RemisolALP [Catalytic activity/Vol]79 [iU]/pRifhfa22 - 98 Int._Unit/LFT[facility] RemisolALT No additional P-5'-P [Catalytic activity/Vol]19 [iU]/dNormal6 - 46 Int._Unit/L[facility] RemisolAnion gap [Moles/Vol]12 mmol/LNormal6 - 16 mEq/L[facility] RemisolAST [Catalytic activity/Vol]20 [iU]/dNormal5 - 43 Int._Unit/L[facility] RemisolBilirubin [Mass/Vol]0.7 mg/dLNormal0.0 - 1.1 mg/dLFTMC RemisolCalcium [Mass/Vol]9.0 mg/dL Normal8.9 - 11.1 mg/dLFT RemisolChloride [Moles/Vol]108 mmol/MUgkhqi742 - 111 mmol/LFT[facility] RemisolCO2 [Moles/Vol]23 mmol/EVreiwm08 - 31 mmol/LFT[facility] Remisol Creatinine [Mass/Vol]1.5 mg/dLHigh0.5 - 1.3 mg/dLFT RemisolGFR/1.73 sq M.predicted among blacks MDRD (S/P/Bld) [Vol rate/Area]41 mL/min/1.73 m2Low >=59mL/min/1.73 m2[facility] Chem SGFR/1.73 sq M.predicted among non-blacks MDRD (S/P/Bld) [Vol rate/Area]34 mL/min/1.73 m2Low>=59mL/min/1.73 m2[facility] Chem S Globulin (S) [Mass/Vol]3.2 g/dLNormal1.4 - 4.0 gm/dLFT RemisolGlucose [Mass/Vol]122 mg/fEMqeuky31 - 199 mg/dLFTMC RemisolPotassium [Moles/Vol]4.6 mmol/LNormal3.5 - 5.3 mmol/LFT[facility] RemisolProtein [Mass/Vol]6.9 g/dLNormal6.0 - 7.8 gm/dLFTMC RemisolSodium [Moles/Vol]138 mmol/JJvhpia166 - 145 mmol/LFTMC RemisolUrea nitrogen [Mass/Vol]26 mg/dLHigh5 - 21 mg/dLFTMC RemisolUrea nitrogen/Creatinine [Mass ratio]17 mg/kaWdcxgd38 - 20[facility] RemisolHEMATOLOGY Ordered By: MENA [employer]IAL SYSTEM on [id number]/100 WBC (Bld)3.5 %High0.0 - 2.0 %[facility] HemeAutoSSBasophils/Leukocytes Auto (Bld) [Pure # fraction]0.1 E9/LNormal 0.0 - 0.2 E9/LFT[facility] HemeAutoSSEosinophils/100 WBC (Bld)1.8 %Normal0.0 - 8.0 %[facility] HemeAutoSSEosinophils/Leukocytes Auto (Bld) [Pure # fraction]0.1 E9/LNormal0.0 - 0.5 E9/LFT[facility] HemeAutoSSLymphocytes/100 WBC (Bld)48.6 %Vwuanq28.0 - 50.0 %[facility] HemeAutoSSLymphocytes/Leukocytes Auto (Bld) [Pure # fraction]2.0 E9/LNormal1.0 - 4.0 E9/L[facility] HemeAutoSSMonocytes/100 WBC (Bld)3.9 %Low4.0 - 14.0 %[facility] HemeAutoSSMonocytes/Leukocytes Auto (Bld) [Pure # fraction]0.2 E9/LNormal0.2 - 1.0 E9/L[facility] HemeAutoSSNeutrophils/100 WBC (Bld)42.2 %Zeiugp53.0 - 75.0 %[facility] HemeAutoSSNeutrophils/Leukocytes Auto (Bld) [Pure # fraction]1.7 E9/LLow2.0 - 7.5 E9/LFT[facility] HemeAutoSSHEMATOLOGYOrdered By: Maxim Ding on 11-01-2021 Erythrocyte distribution width (RBC) [Ratio]20.6 %High10.9 - 14.2 %[facility] HemeAutoSSHematocrit (Bld) [Volume fraction]37.6 %Caxtjg18.0 - 46.0 %[facility] HemeAutoSSHemoglobin (Bld) [Mass/Vol]12.9 g/eCYoogbs92.0 - 16.0 gm/dLFTMC HemeAutoSSMCH (RBC) [Entitic mass]32.7 msGepqar02.0 - 34.0 pgFTMC HemeAutoSSMCHC (RBC) [Mass/Vol]34.3 g/iRSgzyft49.4 - 36.0 gm/dLFTMC HemeAutoSSMCV (RBC) [Entitic vol]95.2 bVOhvmhd56.0 - 100.0 fLFTMC HemeAutoSSPlatelet mean volume (Bld) [Entitic vol]7.3 fLNormal6.4 - 10.8 fLFTMC HemeAutoSSPlatelets (Bld) [#/Vol]387.0 E9/LNwfdcr802.0 - 500.0 E9/LFT[facility] HemeAutoSSRBC (Bld) [#/Vol]4.0 E12/LLow4.3 - 5.9 E12/LFT[facility] HemeAutoSSWBC corrected for nucl RBC Auto (Bld) [#/Vol]4.0 E9/LNormal4.0 - 11.0 E9/LFC HemeAutoSSCHEMISTRYOrdered By: SYSTEM SYSTEM on [id number] [Mass/Vol]3.9 g/dLNormal3.3 - 5.0 gm/dLFT[facility] Remisol Albumin/Globulin [Mass ratio]1.1 {ratio}Normal1.1 - 2.2[facility] RemisolALP [Catalytic activity/Vol]135 [iU]/dHigh21 - 98 Int._Unit/LFT[facility] RemisolALT No additional P-5'-P [Catalytic activity/Vol]37 [iU]/dNormal6 - 46 Int._Unit/LFT[facility] RemisolAnion gap [Moles/Vol]16 mmol/LNormal6 - 16 mEq/LFT[facility] RemisolAST [Catalytic activity/Vol]25 [iU]/dNormal5 - 43 Int._Unit/LFT[facility] RemisolBilirubin [Mass/Vol]1.2 mg/dLHigh0.0 - 1.1 mg/dLFTMC RemisolCalcium [Mass/Vol]9.1 mg/dL Normal8.9 - 11.1 mg/dLFTMC RemisolChloride [Moles/Vol]105 mmol/QMqypxw225 - 111 mmol/LFT[facility] RemisolCO2 [Moles/Vol]21 mmol/QWwmkzp90 - 31 mmol/LFT[facility] Remisol Creatinine [Mass/Vol]1.4 mg/dLHigh0.5 - 1.3 mg/dLFTMC RemisolGFR/1.73 sq M.predicted among blacks MDRD (S/P/Bld) [Vol rate/Area]45 mL/min/1.73 m2Low >=59mL/min/1.73 m2[facility] Chem SGFR/1.73 sq M.predicted among non-blacks MDRD (S/P/Bld) [Vol rate/Area]37 mL/min/1.73 m2Low>=59mL/min/1.73 m2[facility] Chem S Globulin (S) [Mass/Vol]3.5 g/dLNormal1.4 - 4.0 gm/dLFT[facility] RemisolGlucose [Mass/Vol]166 mg/iOLtmcio80 - 199 mg/dLFTMC RemisolPotassium [Moles/Vol]4.8 mmol/LNormal3.5 - 5.3 mmol/LFT[facility] RemisolProtein [Mass/Vol]7.4 g/dLNormal6.0 - 7.8 gm/dLFT[facility] RemisolSodium [Moles/Vol]137 mmol/AFszahf362 - 145 mmol/LFT[facility] RemisolUrea nitrogen [Mass/Vol]24 mg/dLHigh5 - 21 mg/dLFTMC RemisolUrea nitrogen/Creatinine [Mass ratio]17 mg/vbJmrmpp98 - 20[facility] RemisolHEMATOLOGY Ordered By: SYSTEM SYSTEM on [id number]/100 WBC (Bld)2.8 %High0.0 - 2.0 %[facility] HemeAutoSSBasophils/Leukocytes Auto (Bld) [Pure # fraction]0.1 E9/LNormal 0.0 - 0.2 E9/LFT[facility] HemeAutoSSEosinophils/100 WBC (Bld)3.6 %Normal0.0 - 8.0 %[facility] HemeAutoSSEosinophils/Leukocytes Auto (Bld) [Pure # fraction]0.1 E9/LNormal0.0 - 0.5 E9/LFTMC HemeAutoSSLymphocytes/100 WBC (Bld)32.7 %Kthjfj58.0 - 50.0 %[facility] HemeAutoSSLymphocytes/Leukocytes Auto (Bld) [Pure # fraction]1.3 E9/LNormal1.0 - 4.0 E9/LFT[facility] HemeAutoSSMonocytes/100 WBC (Bld)4.9 %Normal4.0 - 14.0 %[facility] HemeAutoSSMonocytes/Leukocytes Auto (Bld) [Pure # fraction]0.2 E9/LNormal0.2 - 1.0 E9/LFT[facility] HemeAutoSSNeutrophils/100 WBC (Bld)56.0 %Njwcpr03.0 - 75.0 %[facility] HemeAutoSSNeutrophils/Leukocytes Auto (Bld) [Pure # fraction]2.2 E9/LNormal2.0 - 7.5 E9/LFT[facility] HemeAutoSSHEMATOLOGYOrdered By: Lisette Tadeo on 10-02-2021 Erythrocyte distribution width (RBC) [Ratio]19.0 %High10.9 - 14.2 %[facility] HemeAutoSSHematocrit (Bld) [Volume fraction]38.9 %Xtafsf53.0 - 46.0 %[facility] HemeAutoSSHemoglobin (Bld) [Mass/Vol]13.3 g/ySJiqbyt38.0 - 16.0 gm/dLFTMC HemeAutoSSMCH (RBC) [Entitic mass]31.2 ezTqdhne04.0 - 34.0 pgFTMC HemeAutoSSMCHC (RBC) [Mass/Vol]34.1 g/uAPwefqf99.4 - 36.0 gm/dLFTMC HemeAutoSSMCV (RBC) [Entitic vol]91.6 bJSdaotk08.0 - 100.0 fLFTMC HemeAutoSSPlatelet mean volume (Bld) [Entitic vol]7.8 fLNormal6.4 - 10.8 fLFTMC HemeAutoSSPlatelets (Bld) [#/Vol]317.0 E9/QAmnuaf017.0 - 500.0 E9/L[facility] HemeAutoSSComment on above:Result Comment: Platelet count verified using smear estimate. 10/02/2021 15:55:05 EDT RBC (Bld) [#/Vol]4.2 E12/LLow4.3 - 5.9 E12/LFC HemeAutoSSWBC corrected for nucl RBC Auto (Bld) [#/Vol]4.0 E9/LNormal4.0 - 11.0 E9/LFT[facility] HemeAutoSSClinic Note - Heme Onc Schedulingon [id number] Note - Heme Onc SchedulingRetrieve Patient Instructions: Patient Instructions: Patient Instructions: RetrievePatient Instructions Instructions It was a pleasure meeting you today. Thank you for allowing me to take part in your care. Please contact our office if you have any questions or concerns going forward. End of Visit Documentation: Clinic Location/Phone Number: Clinic Location/Phone Number: [facility] End Of Visit MU Report Item: Visit Summary given or mailed to patientyes Mailed to patient Electronic Signatures: Isa Wong (SEC) (Signed 28-Aug-2021 16:01) Authored: Retrieve Patient Instructions, End of Visit Documentation Last Updated: 28-Aug-2021 16:01 by Isa Wong (SEC)[facility]-New Visiton [id number] Note - Heme Onc-New VisitPatient Visit Information: Visit Type: New Visit Cancer History: Breast AJCC Edition: 8th (AJCC), Diagnosis Date: August 2021, Stage(no match), pM1 G2 History of Present Illness: ID Statement: null is a () day old null Interval History: BREAST CANCER DIAGNOSIS metastatic ER+/AL+/HER2- breast cancer (gS9V0G0) CONSULTING ONCOLOGIST Dr David Caldera CURRENT THERAPY anastrozole/ribociclib x 3 weeks HPI Patient is a pleasant 71 y/o woman here for a 2nd opinion. She presented on 06/29/21 with a 4.2cm mass in the right breast which she had for >1 year. Biopsy revealed ER/AL >95%/HER2- breast cancer. Also has known h/p [...] hip, corresponding to (more content not included)...[facility] 35-53-2555Nndrcg Note - Intake Patient Visit Information: Visit [...] (kg/m2)39 kg/M2 BSA (m2)2.08 M2 Nursing Verification [id number] Nursing Verification Height in cm159 centimeter(s) SpO2 (%)98 % SpO2 Patient Onroom air Pain Screening: Patient States Painno (0) Peach Grower for intimate exam offered to patient: Patient [...] Falls Band/Sticker Applied and Clinician Awareyes Spiritual/Procedural: Spiritual/cultural/anglican practices important for us to knowno Adv [...] you are livingno Depression: Past 2 wks: [place] down, depressed or hopelessno Past 2 wks: [place] little interest/pleasure doing thingsno Any Thoughts of [...] 13:21) Authored: Patient Visit Information, Vital Signs, Peach Grower, Allergies, Outpatient Medication Profile, Notification, Travel History, Falls, Spiritual/Procedural, Adv Dir, Violence, Depression, Substance, Nutrition/Learning Lisette Valle (RN) (Signed 28-Aug-2021 15:47) Authored: Vital Signs, Notification Co-Signer: Patient Visit Information, Vital Signs, Peach Grower, Allergies, Outpatient Medication Profile, Notification, Travel History, Falls, Spiritual/Procedural, Adv Dir, Violence, Depression, Substance, Nutrition/Learning Last Updated: 28-Aug-2021 15:47 by Lisette Valle (RN)[facility] CenterNarrative Note - Outpatient-Community Health Workeron 08-25-2021 Narrative Note - Outpatient-Community Health WorkerNarrative Note: CHW: DisciplineCommunity Health Worker Best way to contact patient#[id number] Veteranno Has patient been seen by a [...] spelled wrong and that it should list [place] not [place]. Electronic Signatures: Leroy Gallegos (COOR) (Signed 25-Aug-2021 11:50) Authored: IVAN Last Updated: 25-Aug-2021 11:50 by Leroy Gallegos (COOR)[facility] CenterCHEMISTRYOrdered By: SYSTEM SYSTEM on 98-92-2236Htzemhk [Mass/Vol]3.5 g/dLNormal3.3 - 5.0 gm/dLFTMC RemisolAlbumin/Globulin [Mass ratio] 1.1 {ratio}Normal1.1 - 2.2[facility] RemisolALP [Catalytic activity/Vol]71 [iU]/d Jcmhta82 - 98 Int._Unit/LFT[facility] RemisolALT No additional P-5'-P [Catalytic activity/Vol]16 [iU]/dNormal6 - 46 Int._Unit/L[facility] RemisolAnion gap [Moles/Vol] 11 mmol/LNormal6 - 16 mEq/L[facility] RemisolAST [Catalytic activity/Vol]17 [iU]/d Normal5 - 43 Int._Unit/L[facility] RemisolBilirubin [Mass/Vol]0.8 mg/dLNormal0.0 - 1.1 mg/dLFTMC RemisolCalcium [Mass/Vol]8.7 mg/dLLow8.9 - 11.1 mg/dLFTMC Remisol Carcinoembryonic Ag [Mass/Vol]10.2 ng/mLInvalid Interpretation CodeFTMC Remisol Chloride [Moles/Vol]110 mmol/TEfhpry609 - 111 mmol/LFT[facility] RemisolCO2 [Moles/Vol] 21 mmol/RYwkzlh26 - 31 mmol/LFT[facility] RemisolCreatinine [Mass/Vol]1.0 mg/dLNormal0.5 - 1.3 mg/dLFTMC RemisolGFR/1.73 sq M.predicted among blacks MDRD (S/P/Bld) [Vol rate/Area]mL/min/1.73 j1Nobpel>=59mL/min/1.73 m2[facility] Chem SGFR/1.73 sq M.predicted among non-blacks MDRD (S/P/Bld) [Vol rate/Area]54 mL/min/1.73 m2Low >=59mL/min/1.73 m2[facility] Chem SGlobulin (S) [Mass/Vol]3.1 g/dLNormal1.4 - 4.0 gm/dLFT[facility] RemisolGlucose [Mass/Vol]132 mg/sSWyrbfm23 - 199 mg/dLFT[facility] Remisol Potassium [Moles/Vol]4.1 mmol/LNormal3.5 - 5.3 mmol/LFTMC RemisolProtein [Mass/Vol]6.6 g/dLNormal6.0 - 7.8 gm/dLFT[facility] RemisolSodium [Moles/Vol]138 mmol/L Jthtzl227 - 145 mmol/LFTMC RemisolUrea nitrogen [Mass/Vol]28 mg/dLHigh5 - 21 mg/dLFT[facility] RemisolUrea nitrogen/Creatinine [Mass ratio]28 mg/fbKcee31 - 20[facility] RemisolHEMATOLOGYOrdered By: SYSTEM SYSTEM on 33-70-9014Tkbonpuzz/100 WBC (Bld) 1.1 %Normal0.0 - 2.0 %[facility] HemeAutoSSBasophils/Leukocytes Auto (Bld) [Pure # fraction]0.1 E9/LNormal0.0 - 0.2 E9/LFTMC HemeAutoSSEosinophils/100 WBC (Bld)3.5 %Normal0.0 - 8.0 %[facility] HemeAutoSSEosinophils/Leukocytes Auto (Bld) [Pure # fraction]0.3 E9/LNormal0.0 - 0.5 E9/LFTMC HemeAutoSSLymphocytes/100 WBC (Bld) 35.9 %Fdjasw97.0 - 50.0 %[facility] HemeAutoSSLymphocytes/Leukocytes Auto (Bld) [Pure # fraction]2.7 E9/LNormal1.0 - 4.0 E9/L[facility] HemeAutoSSMonocytes/100 WBC (Bld)5.3 %Normal4.0 - 14.0 %[facility] HemeAutoSSMonocytes/Leukocytes Auto (Bld) [Pure # fraction]0.4 E9/LNormal0.2 - 1.0 E9/L[facility] HemeAutoSSNeutrophils/100 WBC (Bld) 54.2 %Znebiy95.0 - 75.0 %[facility] HemeAutoSSNeutrophils/Leukocytes Auto (Bld) [Pure # fraction]4.1 E9/LNormal2.0 - 7.5 E9/LFT[facility] HemeAutoSSHEMATOLOGYOrdered By: Edwina Ryan on 65-95-9368Tvspktlfxph distribution width (RBC) [Ratio]14.5 %High10.9 - 14.2 %[facility] HemeAutoSSHematocrit (Bld) [Volume fraction]40.6 %Normal 34.0 - 46.0 %[facility] HemeAutoSSHemoglobin (Bld) [Mass/Vol]13.6 g/gZZjhbyr13.0 - 16.0 gm/dLFTMC HemeAutoSSMCH (RBC) [Entitic mass]29.8 khGyujho57.0 - 34.0 pgFTMC HemeAutoSSMCHC (RBC) [Mass/Vol]33.5 g/nVEkyocz53.4 - 36.0 gm/dLFTMC HemeAutoSS MCV (RBC) [Entitic vol]88.9 tPCjbwhc72.0 - 100.0 fLFTMC HemeAutoSSPlatelet mean volume (Bld) [Entitic vol]7.9 fLNormal6.4 - 10.8 fLFTMC HemeAutoSSPlatelets (Bld) [#/Vol]185.0 E9/IQyqkrv925.0 - 500.0 E9/L[facility] HemeAutoSSRBC (Bld) [#/Vol] 4.6 E12/LNormal4.3 - 5.9 E12/L[facility] HemeAutoSSWBC corrected for nucl RBC Auto (Bld) [#/Vol]7.6 E9/LNormal4.0 - 11.0 E9/L[facility] HemeAutoSSNurse Navigator - Breast-Second Opinionon 44-67-7188Aquoj Navigator - Breast-Second Opinion Preview: Note Preview [...] explained role within the multidisciplinary team at [facility]; reviewed upcoming appointment with Dr. [...] Last Updated: 16-Aug-2021 11:34 by Aliya Dobson (DELGADO)[facility] CenterCHEMISTRYOrdered By: SYSTEM SYSTEM on 41-13-1143Lpaftzb [Mass/Vol] 3.6 g/dLNormal3.3 - 5.0 gm/dLNORTHWEST C[facility] RemisolAlbumin/Globulin [Mass ratio]1.1 {ratio}Normal1.1 - 2.2[facility] RemisolALP [Catalytic activity/Vol]74 [iU]/dOgalic70 - 98 Int._Unit/LFT[facility] RemisolALT No additional P-5'-P [Catalytic activity/Vol]19 [iU]/dNormal6 - 46 Int._Unit/L[facility] RemisolAnion gap [Moles/Vol]12 mmol/LNormal6 - 16 mEq/L[facility] RemisolAST [Catalytic activity/Vol]19 [iU]/dNormal5 - 43 Int._Unit/L[facility] RemisolBilirubin [Mass/Vol]1.1 mg/dLNormal0.0 - 1.1 mg/dLFT[facility] RemisolCalcium [Mass/Vol]9.0 mg/dLNormal8.9 - 11.1 mg/dLFT[facility] RemisolChloride [Moles/Vol]107 mmol/OHumrmj951 - 111 mmol/LFT[facility] RemisolCO2 [Moles/Vol]21 mmol/L Jlnrcb65 - 31 mmol/LFT[facility] RemisolCreatinine [Mass/Vol]1.1 mg/dLNormal0.5 - 1.3 mg/dLFT[facility] RemisolGFR/1.73 sq M.predicted among blacks MDRD (S/P/Bld) [Vol rate/Area]59 mL/min/1.73 l9Iolvyl>=59mL/min/1.73 m2[facility] Chem SGFR/1.73 sq M.predicted among non-blacks MDRD (S/P/Bld) [Vol rate/Area]49 mL/min/1.73 m2Low >=59mL/min/1.73 m2[facility] Chem SGlobulin (S) [Mass/Vol]3.4 g/dLNormal1.4 - 4.0 gm/dLFT[facility] RemisolGlucose [Mass/Vol]151 mg/rJMwupxg26 - 199 mg/dLFT[facility] Remisol Potassium [Moles/Vol]4.5 mmol/LNormal3.5 - 5.3 mmol/L[facility] RemisolProtein [Mass/Vol]7.0 g/dLNormal6.0 - 7.8 gm/dLFT[facility] RemisolSodium [Moles/Vol]135 mmol/L Twlkjp093 - 145 mmol/LFT[facility] RemisolUrea nitrogen [Mass/Vol]30 mg/dLHigh5 - 21 mg/dLFT[facility] RemisolUrea nitrogen/Creatinine [Mass ratio]27 mg/ajAjje29 - 20[facility] RemisolHEMATOLOGYOrdered By: SYSTEM SYSTEM on 97-00-6829Hplkdhuxj/100 WBC (Bld) 1.4 %Normal0.0 - 2.0 %[facility] HemeAutoSSBasophils/Leukocytes Auto (Bld) [Pure # fraction]0.1 E9/LNormal0.0 - 0.2 E9/LFT[facility] HemeAutoSSEosinophils/100 WBC (Bld)2.1 %Normal0.0 - 8.0 %[facility] HemeAutoSSEosinophils/Leukocytes Auto (Bld) [Pure # fraction]0.1 E9/LNormal0.0 - 0.5 E9/LFT[facility] HemeAutoSSLymphocytes/100 WBC (Bld) 25.7 %Gyihxc35.0 - 50.0 %[facility] HemeAutoSSLymphocytes/Leukocytes Auto (Bld) [Pure # fraction]1.6 E9/LNormal1.0 - 4.0 E9/L[facility] HemeAutoSSMonocytes/100 WBC (Bld)5.6 %Normal4.0 - 14.0 %[facility] HemeAutoSSMonocytes/Leukocytes Auto (Bld) [Pure # fraction]0.3 E9/LNormal0.2 - 1.0 E9/L[facility] HemeAutoSSNeutrophils/100 WBC (Bld) 65.2 %Bdvxsg09.0 - 75.0 %[facility] HemeAutoSSNeutrophils/Leukocytes Auto (Bld) [Pure # fraction]3.9 E9/LNormal2.0 - 7.5 E9/L[facility] HemeAutoSSHEMATOLOGYOrdered By: Katherine Last on 79-27-7739Ygvzdbphuce distribution width (RBC) [Ratio]14.3 %High 10.9 - 14.2 %[facility] HemeAutoSSHematocrit (Bld) [Volume fraction]42.8 %Uevhqp20.0 - 46.0 %[facility] HemeAutoSSHemoglobin (Bld) [Mass/Vol]14.5 g/vJKygtbe83.0 - 16.0 gm/dL [facility] HemeAutoSSMCH (RBC) [Entitic mass]29.8 wdQtncqg42.0 - 34.0 pgFTMC HemeAutoSSMCHC (RBC) [Mass/Vol]33.9 g/yIFywxpd95.4 - 36.0 gm/dLFTMC HemeAutoSS MCV (RBC) [Entitic vol]87.7 lJHbggmt30.0 - 100.0 fLFTMC HemeAutoSSPlatelet mean volume (Bld) [Entitic vol]7.5 fLNormal6.4 - 10.8 [facility] HemeAutoSSPlatelets (Bld) [#/Vol]196.0 E9/HSjbpxc631.0 - 500.0 E9/[facility] HemeAutoSSRBC (Bld) [#/Vol] 4.9 E12/LNormal4.3 - 5.9 E12/[facility] HemeAutoSSWBC corrected for nucl RBC Auto (Bld) [#/Vol]6.1 E9/LNormal4.0 - 11.0 E9/[facility] HemeAutoSS Vital Signs Date TimeVital SignValuePerforming PoufavqpoHjpowubo48-35-0250 14:41-0400Body yivkfcjpbad09.88 [degF][facility]05-21-2025 14:41-0400Diastolic blood rtmukmgb84 mm[Hg][facility]05-21-2025 14:41-0400Heart rate67 /minSum[facility]05-21-2025 14:41-0400Mean blood ehymkeoz39 mm[Hg][facility]05-21-2025 14:41-0400Respiratory rate18 /minSum[facility]05-21-2025 14:41-0199GlQ5% (BldA) [Mass fraction]99 %[facility] 09-09-2024 14:41-0400Systolic blood mm[Hg][facility]01-22-2025 14:46-0500Body sdtkuoavgti50.42 [degF][facility]01-22-2025 14:46-0500Diastolic blood ncaktjqx83 mm[Hg][facility]01-22-2025 14:46-0500Heart rate58 /minSum[facility] 05-13-2024 14:46-0500Mean blood mm[Hg][facility]01-22-2025 14:46-0500Respiratory rate16 /min[facility]01-22-2025 14:46-6525AgI0% (BldA) [Mass fraction]95 %[facility]01-22-2025 14:46-0500Systolic blood rvpmbtde13 mm[Hg][facility]09-19-2024 10:38-0400Body .88 [degF][facility]09-19-2024 10:38-0400Diastolic blood axyqyvzr40 mm[Hg][facility]09-19-2024 10:38-0400Heart rate61 /minSum[facility]09-19-2024 10:38-0400Mean blood mm[Hg][facility]09-19-2024 10:38-0400 Respiratory rate16 /minSum[facility]09-19-2024 10:38-6141UaB7% (BldA) [Mass fraction]96 %[facility]09-19-2024 10:38-0400Systolic blood woyuqkrp231 mm[Hg][facility]05-23-2024 10:19-0400Body sgsexedftya08.88 [degF][facility]05-23-2024 10:19-0400 Diastolic blood pmtfugdo74 mm[Hg][facility] 09-12-2023 10:19-0400Heart rate61 /minSum[facility]05-23-2024 10:19-0400Mean blood lsnqbisa78 mm[Hg][facility]05-23-2024 10:19-0400Respiratory rate18 /minSum[facility]05-23-2024 10:19-2602AjL9% (BldA) [Mass fraction]99 %[facility]05-23-2024 10:19-0400 Systolic blood ssoxxmvy341 mm[Hg][facility] 08-30-2023 08:10-0400Body omlbeg509.02 cmMD Rugkeith [place] Work Phone: [facility]05-10-2024 08:10-0400 Body .64 kgMD Mary [place] Work Phone: [facility]02-21-2024 10:55-0500 Body buvxxrimlqh29.06 [degF][facility] 06-12-2023 10:55-0500Diastolic blood uwdhvzot98 mm[Hg][facility]02-21-2024 10:55-0500Heart rate68 /min[facility]02-21-2024 10:55-0500Mean blood pazpajlv11 mm[Hg] [facility]02-21-2024 10:55-0500Respiratory rate16 /minSum[facility]02-21-2024 10:55-0500 SaO2% (BldA) [Mass fraction]97 %[facility] 06-12-2023 10:55-0500Systolic blood wifsmuwx378 mm[Hg][facility]02-09-2024 08:36-0500Body upgxuy139.02 cmMD Rugen [place] Work Phone: [facility]02-09-2024 08:36-0500 Body xtpbox97.18 kgMD Rugen [place] Work Phone: [facility]01-10-2024 14:03-0500 Heart rate70 /minSum[facility]01-10-2024 14:03-8577ZwU6% (BldA) [Mass fraction]98 %[facility]01-10-2024 14:02-0500Body exkeczyssbf79.24 [degF][facility]01-10-2024 14:02-0500Diastolic blood ialmnefq50 mm[Hg][facility]01-10-2024 14:02-0500Mean blood ifisende78 mm[Hg][facility]01-10-2024 14:02-0500Systolic blood pgxauebu240 mm[Hg][facility]10-11-2023 14:25-0400Heart rate76 /minSumma Health [facility] Campus10-11-2023 14:25-3133KiA9% (BldA) [Mass fraction]96 %[facility]10-11-2023 14:25-0400Diastolic blood onshkvpw63 mm[Hg][facility]10-11-2023 14:25-0400Mean blood xakwuqcp33 mm[Hg][facility]10-11-2023 14:25-0400Systolic blood mm[Hg][facility]10-11-2023 14:25-0400Body lgzmucjmrao22.7 [degF] [facility]10-11-2023 14:00-0400Blood Pressure LocationSumma Health [facility]10-11-2023 14:00-0400Respiratory rate16 /minSum[facility] Health [facility] 12-23-2022 10:15-0400Hourly RoundingNic OMARCELLOWU [facility]09-03-2023 10:15-0400 Promise to ReturnNic OMARCELLOWU [facility]09-03-2023 09:00-0400 Hourly RoundingMbanefo OJUKWU [address] [place], [place] 1278809-03-2023 09:00-0400 Promise to ReturnMbanefo OJUKWU [address] [place], [place] 1278809-03-2023 08:46-0400 Diastolic blood peyxbujd40 mm[Hg]Mbanefo OJUKWU [address] [place], [place] 1278809-03-2023 08:46-0400 Systolic blood ldnknewl00 mm[Hg]Mbanefo OJUKWU [address] [place], [place] 1278809-03-2023 08:40-0400gluc 111 mg/dLMbanefo OJUKWU [address] [place], [place] 1278809-03-2023 08:37-0400Heart rate56 /minMbanefo OJUKWU [address] [place], [place] 1278809-03-2023 08:37-8597HsY4% (BldA) [Mass fraction]96 %Mbanefo OJUKWU [address] [place], [place] 1278809-03-2023 08:37-0400 Respiratory rate18 /minMbanefo OJUKWU [address] [place], [place] 1278809-03-2023 08:37-0400Body .88 [degF]Mbanefo OJUKWU [address] [place], [place] 1278809-03-2023 08:37-0400 Diastolic blood ndkqdjej86 mm[Hg]Mbanefo OJUKWU [address] [place], [place] 1278809-03-2023 08:37-0400Mean blood ityooysp45 mm[Hg]Mbanefo OJUKWU [address] [place], [place] 1278809-03-2023 08:37-0400 Systolic blood mbvujcha31 mm[Hg]Mbanefo OJUKWU [address] [place], [place] 1278809-03-2023 08:00-0400 Hourly RoundingMbanefo OJUKWU [address] [place], [place] 1278809-03-2023 08:00-0400 Promise to ReturnMbanefo OJUKWU [address] [place], [place] 1278809-02-2023 23:44-0400Heart rate58 /minMbanefo OJUKWU [address] [place], [place] 1278809-02-2023 23:44-7824JxH2% (BldA) [Mass fraction]97 %Mbanefo OJUKWU [address] [place], [place] 1278809-02-2023 23:44-0400Body pswwwcovsqo61.06 [degF]Mbanefo OJUKWU [address] [place], [place] 1278809-02-2023 23:44-0400 Diastolic blood zabznidh20 mm[Hg]Mbanefo OJUKWU [address] [place], [place] 1278809-02-2023 23:44-0400Mean blood nlgvunwf81 mm[Hg]Mbanefo OJUKWU [address] [place], [place] 1278809-02-2023 23:44-0400 Systolic blood nmuvwkqk87 mm[Hg]Mbanefo OJUKWU [address] [place], [place] 1278809-02-2023 19:33-0400Heart rate62 /minMbanefo OJUKWU [address] [place], [place] 1278809-02-2023 19:33-0322JbD7% (BldA) [Mass fraction]97 %Mbanefo OJUKWU [address] [place], [place] 1278809-02-2023 19:33-0400Body jocngmlbgxk04.24 [degF]Mbanefo OJUKWU [address] [place], [place] 1278809-02-2023 19:32-0400Mean blood hvfvgvil84 mm[Hg]Mbanefo OJUKWU [address] [place], [place] 1278809-02-2023 16:03-0400gluc 129 mg/dLMbanefo OJUKWU [address] [place], [place] 1278809-02-2023 15:46-0400 Respiratory rate16 /minMbanefo OJUKWU [address] [place], [place] 1278809-02-2023 11:52-0400gluc 158 mg/dLMbanefo OJUKWU [address] [place], [place] 1278809-02-2023 11:13-0400 Respiratory rate13 /minMbanefo OJUKWU [address] [place], [place] 1278809-02-2023 06:56-0400Blood Pressure LocationMbanefo OJUKWU [address] [place], [place] 1278809-02-2023 06:56-0400Body lliksqcqqpc41.42 [degF]Mbanefo OJUKWU [address] [place], [place] 1278809-02-2023 06:56-0400Mean blood mm[Hg]Mbanefo OJUKWU [address] [place], [place] 1278809-01-2023 23:00-0400Blood Pressure LocationMbanefo OJUKWU [address] [place], [place] 1278809-01-2023 23:00-0400Body cgjajefyikn52.96 [degF]Mbanefo OJUKWU [address] [place], [place] 1278809-01-2023 23:00-0400Mean blood cioobxfy15 mm[Hg]Mbanefo OJUKWU [address] [place], [place] 1278809-01-2023 05:35-0400Mean blood ailuhgoo33 mm[Hg]Mbanefo OJUKWU [address] [place], [place] 1278808-31-2023 21:08-0400Body qiolmvfhpjl38.7 [degF]Mbanefo OJUKWU [address] [place], [place] 1278808-31-2023 21:08-0400Heart rate65 /minMbanefo OJUKWU [address] [place], [place] 1278808-31-2023 15:06-0400Heart rate75 /minMbanefo OJUKWU [address] [place], [place] 1278808-31-2023 00:45-0400 Diastolic blood mm[Hg]David Tong [address] [place], [place] 1278808-31-2023 00:45-0400Heart rate76 /minTim Ran [address] [place], [place] 1278808-31-2023 00:45-0400Mean blood gyrxbuaq43 mm[Hg]David Tong [address] [place], [place] 1278808-31-2023 00:45-0400 Respiratory rate14 /minTim Ran [address] [place], [place] 1278808-31-2023 00:45-7425HqK2% (BldA) [Mass fraction]100 %David Tong [address] [place], [place] 1278808-31-2023 00:45-0400 Systolic blood fjujlapz930 mm[Hg]David Tong [address] [place], [place] 1278808-31-2023 00:15-0400 Diastolic blood yihlefji65 mm[Hg]David Tong [address] [place], [place] 1278808-31-2023 00:15-0400Heart rate71 /minDavid Tong [address] [place], [place] 7954708-31-2023 00:15-0400Mean blood aurdxxkd94 mm[Hg]David Tong [address] [place], [place] 7954708-31-2023 00:15-0400 Respiratory rate14 /minDavid Tong [address]08-31-2023 00:15-9814JgV9% (BldA) [Mass fraction]92 %David Tong [address]08-31-2023 00:15-0400 Systolic blood yqajecat795 mm[Hg]David Tong [address]08-30-2023 23:45-0400 Diastolic blood klqlithj69 mm[Hg]David Tong [address]08-30-2023 23:45-0400Heart rate80 /minDavid Tong [address]08-30-2023 23:45-0400Mean blood ddfiauuh53 mm[Hg]David Tong [address] [place], [place] 7954708-30-2023 23:45-0400 Respiratory rate16 /minDavid Tong [address] [place], [place] 7954708-30-2023 23:45-8471ViS7% (BldA) [Mass fraction]97 %David Tong [address] [place], [place] 7954708-30-2023 23:45-0400 Systolic blood lojnexrf466 mm[Hg]David Tong [address] [place], [place] 7954708-30-2023 20:41-0400Body twvuxwnnapx36.24 [degF]David Tong [address] [place], [place] 7954708-30-2023 20:41-0400Heart rate82 /minTim Ran [facility]08-30-2023 20:41-0400 Respiratory rate20 /minDavid Tong [address] [place], [place] 7954708-28-2023 13:20-0400 Diastolic blood onzhjqdp92 mm[Hg]Jeffery Murphy [address] [place], [place] 7954708-28-2023 13:20-0400Heart rate60 /minJeffery Murphy [address] [place], [place] 7954708-28-2023 13:20-0400 Hourly RoundingJeffery Murphy [address] [place], [place] 7954708-28-2023 13:20-0400Mean blood mm[Hg]Jeffery Murphy [address]08-28-2023 13:20-0400 Promise to ReturnJeffery Murphy [address] [place], [place] 7954708-28-2023 13:20-0353HpX8% (BldA) [Mass fraction]97 %Jeffery Murphy [address] [place], [place] 7954708-28-2023 13:20-0400 Systolic blood mxaeatjb506 mm[Hg]Jeffery Murphy [address] [place], [place] 7954708-28-2023 12:20-0400 Diastolic blood eoscipaf03 mm[Hg]Jeffery Murphy [address] [place], [place] 7954708-28-2023 12:20-0400Heart rate71 /minJodiamante Murphy [address] [place], [place] 7954708-28-2023 12:20-0400 Hourly RoundingJeffery Murphy [address] [place], [place] 7954708-28-2023 12:20-0400Mean blood bkdcjizd88 mm[Hg]Jeffery Murphy [address] [place], [place] 7954708-28-2023 12:20-0400 Promise to ReturnJeffery Murphy [address] [place], [place] 7954708-28-2023 12:20-5254HsZ9% (BldA) [Mass fraction]96 %Jeffery Murphy [address] [place], [place] 7954708-28-2023 12:20-0400 Systolic blood ysplfath119 mm[Hg]Jeffery Murphy [address] [place], [place] 7954708-28-2023 11:21-0400 Hourly RoundingJeffery Murphy [address] [place], [place] 7954708-28-2023 11:21-0400 Promise to ReturnJeffery Murphy [address] [place], [place] 7954708-28-2023 11:20-0400 Diastolic blood jiexvwrv42 mm[Hg]Jeffery Murphy [address] [place], [place] 7954708-28-2023 11:20-0400Heart rate68 /minJeffery Murphy [address] [place], [place] 7954708-28-2023 11:20-0400Mean blood xuneyzmh36 mm[Hg]Jeffery Murphy [address] [place], [place] 7954708-28-2023 11:20-0400 Respiratory rate18 /minJeffery Castelane [address] [place], [place] 7954708-28-2023 11:20-4546JcZ6% (BldA) [Mass fraction]96 %Jeffery Murphy [address] [place], [place] 7954708-28-2023 11:20-0400 Systolic blood arnkcvcx736 mm[Hg]Jeffery Murphy [address] [place], [place] 7954708-28-2023 10:22-0400Body ijxercurlbr58.88 [degF]Jeffery Murphy [address] [place], [place] 7954708-28-2023 10:22-0400Heart rate69 /minJohn Katherine [address]08-28-2023 10:22-0400 Respiratory rate18 /minJohn Katherine [address] [place], [place] 7954707-16-2023 14:00-0400 Hourly RoundingRonobir JESSICA [address] [place], [place] 7954707-16-2023 13:40-0400 Hourly RoundingRonobir JESSICA [address] [place] [id number] 13:40-0400 Promise to ReturnRonobir JESSICA [address] [place], [place] 7954707-16-2023 13:00-0400 Hourly RoundingRonobir JESSICA [address] [place], [place] 1278807-16-2023 12:26-0400 Promise to ReturnRonobir JESSICA [address]07-16-2023 11:48-0400Heart rate78 /minRonobir JSESICA [address] [place], [place] 7954707-16-2023 11:48-4781BmN1% (BldA) [Mass fraction]95 %Ronobir JESSICA [address] [place], [place] 7954707-16-2023 11:48-0400 Diastolic blood rgoaekcv57 mm[Hg]Ronobir JESSICA [address] [place], [place] 7954707-16-2023 11:48-0400Mean blood roczxsfo67 mm[Hg]Ronobir JESSICA [address] [place], [place] 7954707-16-2023 11:48-0400 Systolic blood mjgqivqt132 mm[Hg]Ronobir JESSICA [address] [place], [place] 7954707-16-2023 11:48-0400Body xrbfymzbjih08.24 [degF]Ronobir JESSICA [address] [place], [place] 7954707-16-2023 11:17-0400 Promise to ReturnRonobir JESSICA [address] [place], [place] 7954707-16-2023 08:24-0400 Diastolic blood melsrskn42 mm[Hg]Ronobir JESSICA [address] [place], [place] 7954707-16-2023 08:24-0400 Systolic blood ozmvguki446 mm[Hg]Ronobir JESSICA [address] [place], [place] 7954707-16-2023 07:32-0400Heart rate77 /minRonobir JESSICA [address] [place], [place] 1278807-16-2023 07:32-1341IiV8% (BldA) [Mass fraction]94 %Ronobir JESSICA [address]07-16-2023 07:31-0400Body eajjjhzavnn15.7 [degF]Ronobir JESSICA [address] [place], [place] 7954707-16-2023 07:31-0400 Diastolic blood tgsuukdj65 mm[Hg]Ronobir JESSICA [address] [place], [place] 7954707-16-2023 07:31-0400Mean blood sppewhnf84 mm[Hg]Ronobir JESSICA [address] [place], [place] 7954707-16-2023 07:31-0400 Systolic blood texafgke765 mm[Hg]Ronobir JESSICA [address] [place], [place] 7954707-15-2023 23:16-0400Heart rate79 /minRonobir JESSICA [address] [place], [place] 7954707-15-2023 23:16-1669GlH0% (BldA) [Mass fraction]97 %Ronobir JESSICA [address] [place], [place] 7954707-15-2023 23:16-0400Mean blood mm[Hg]Ronobir JESSICA [address] [place], [place] 7954707-15-2023 23:15-0400Body iwpdtknjwdo81.7 [degF]Ronobir JESSICA [address] [place], [place] 7954707-15-2023 20:00-0400Blood Pressure LocationRonobir JESSICA [address] [place], [place] 1278807-15-2023 20:00-0400 Respiratory rate21 /minRonobir JESSICA [address] [place], [place] 1278807-15-2023 09:00-0400Mean blood cgyuitwo76 mm[Hg]Ronobir JESSICA [address] [place], [place] 1278807-15-2023 09:00-0400 Respiratory rate16 /minRonobir JESSICA [address] [place], [place] 1278807-14-2023 21:15-0400Mean blood dnhcrohs09 mm[Hg]Ronobir JESSICA [address]07-14-2023 11:51-0400 Respiratory rate18 /minRonobir JESSICA [address] [place], [place] 7954707-14-2023 03:50-0400Heart rate68 /minRonobir JESSICA [address] [place], [place] 7954707-14-2023 03:18-0400 Respiratory rate10 /minRonobir JESSICA [address] [place], [place] 7954707-14-2023 02:38-0400 Nursing Progress Note ReasonOther: pt complains of back pain. repositioned in bed. medicated for pain.Ronobir JESSICA [address] [place], [place] 7954707-14-2023 02:38-0400 Respiratory rate7 /minRonobir JESSICA [facility]07-14-2023 02:37-0400Heart rate73 /minRonobir JESSICA [address] [place], [place] 9973707-13-2023 23:15-0400 Nursing Progress Note ReasonOther: trauma made medical at this time. mini cath done and urine sent to lab. pt repositioned in bedRonobir JESSICA [address] [place], [place] 7954707-13-2023 22:53-0400Body .62 [degF]Ronobir JESSICA [facility]07-13-2023 22:53-0400Heart rate74 /minRonobir JESSICA [facility]07-13-2023 22:03-0400Heart rate69 /minRonobir JESSICA [address] [place], [place] 7954704-12-2023 13:00-0400[facility]04[facility]12-2023 13:00-0400Body dhhhvncuyux35.6 [degF][facility]04-12-2023 13:00-0400Diastolic blood rjykobgy07 mm[Hg][facility]04-12-2023 13:00-0400Heart rate76 /[facility]04-12-2023 13:00-0400Mean blood pressure 101 mm[Hg][facility]04-12-2023 13:00-0400 Respiratory rate16 /min[facility]04-12-2023 13:00-0750GmG9% (BldA) [Mass fraction]97 %[facility]04-12-2023 13:00-0400Systolic blood mm[Hg][facility]02-15-2023 12:59-0500Heart rate61 /min Senthilleopoldo [facility]Pro[facility]02-15-2023 12:59-0461NeU2% (BldA) [Mass fraction]98 %[facility]-15-2023 12:59-0500Respiratory rate16 /[facility] 06-06-2022 12:59-0500Body izoagfzflmu21.7 [degF][facility]02-15-2023 12:58-0500Diastolic blood kydlmawh994 mm[Hg][facility]02-15-2023 12:58-0500Mean blood pressure 116 mm[Hg][facility]02-15-2023 12:58-0500 Systolic blood riyyeijw829 mm[Hg][facility] 03-28-2022 14:10-0500Heart rate66 /minSum[facility]12-07-2022 14:10-4084YmU2% (BldA) [Mass fraction]96 %[facility]12-07-2022 14:09-0500Body jtgxbrqiwrr82.42 [degF] [facility]12-07-2022 14:09-0500Diastolic blood mqstpdme18 mm[Hg][facility]12-07-2022 14:09-0500Mean blood mm[Hg][facility]12-07-2022 14:09-0500Systolic blood feypcpmw853 mm[Hg][facility]12-07-2022 14:09-0500Blood Pressure LocationSum[facility]12-07-2022 14:09-0500Body temperature 98.42 [degF][facility]12-07-2022 14:09-0500 Mean blood mjqgwurl16 mm[Hg][facility] 03-28-2022 14:09-0500Respiratory rate18 /minSum[facility]09-29-2022 14:13-0400Blood Pressure Location[facility]09-29-2022 14:13-0400Body dhwlqkivikv01.06 [degF] [facility]09-29-2022 14:13-0400BP/Pulse Patient PositionSumma Health [facility] Campus09-29-2022 14:13-0400Diastolic blood mm[Hg][facility]09-29-2022 14:13-0400Heart rate59 /minSum[facility]09-29-2022 14:13-0400Mean blood cinzdvdl23 mm[Hg][facility]09-29-2022 14:13-0400Respiratory rate16 /minSum[facility]09-29-2022 14:13-2669EgG8% (BldA) [Mass fraction]98 %[facility] 01-18-2022 14:13-0400Systolic blood obkqcujr900 mm[Hg][facility]09-01-2022 13:34-0400Blood Pressure LocationNohemi Garcia [address] [place], [place] 9973709-01-2022 13:34-0400Body nlzunrjrxqj23.6 [degF]Nohemi Garcia [facility]09-01-2022 13:34-0400 BP/Pulse Patient PositionNohemi Garcia [facility]09-01-2022 13:34-0400 Diastolic blood vjqsebnc13 mm[Hg]Nohemi Garcia [address] [place], [place] [id number] 13:34-0400Heart rate67 /Sudeep Garcia [address] [place], [place] 7954709-01-2022 13:34-0400Mean blood mm[Hg]Nohemi Garcia [address]09-01-2022 13:34-0400 Respiratory rate18 /minNohemi Garcia [address]09-01-2022 13:34-8075LpV3% (BldA) [Mass fraction]93 %Nohemi Garcia [address]09-01-2022 13:34-0400 Systolic blood hxoxfmlo532 mm[Hg]Nohemi Garcia [address]09-01-2022 13:34-0400Mean blood ybpyqdmg594 mm[Hg]Nohemi Garcia [address] [place], [place] 7954708-11-2022 13:16-0400Body lwyaqcyzdaa09.24 [degF][facility]08-11-2022 13:16-0400Diastolic blood xxuzuheu53 mm[Hg][facility]08-11-2022 13:16-0400Heart rate78 /minSum[facility]08-11-2022 13:16-0400Mean blood jlpqulfa40 mm[Hg][facility]08-11-2022 13:16-3812NaX3% (BldA) [Mass fraction]96 %[facility]08-11-2022 13:16-0400 Systolic blood ynbujcrz658 mm[Hg][facility] 11-30-2021 13:00-0400Blood Pressure LocationSum[facility]08-11-2022 13:00-0400Respiratory rate16 /minTimothy Adamowicz [facility]07-14-2022 11:53-0400Blood Pressure LocationNohemi Garcia [address] [place], [place] 7954707-14-2022 11:53-0400Body tkzyufudmeu65.06 [degF]Nohemi Garcia [address] [place], [place] 7954707-14-2022 11:53-0400 BP/Pulse Patient PositionNohemi Garcia [address] [place], [place] 7954707-14-2022 11:53-0400 Diastolic blood gcidsbbd82 mm[Hg]Nohemi Garcia [address]07-14-2022 11:53-0400Heart rate64 /Sudeep Garcia [address]07-14-2022 11:53-0400Mean blood rmksvihb20 mm[Hg]Nohemi Garcia [address] [place], [place] 7954707-14-2022 11:53-0400 Respiratory rate17 /Sudeep Garcia [address] [place], [place] 7954707-14-2022 11:53-1240ZmQ7% (BldA) [Mass fraction]97 %Nohemi Garcia [address] [place], [place] 7954707-14-2022 11:53-0400 Systolic blood cofjepps337 mm[Hg]Nohemi Garcia [address] [place], [place] 7954706-16-2022 13:46-0400Body tfxingdocbq89.42 [degF][facility]aReg[facility]06-16-2022 13:46-0400Diastolic blood oddqhcld03 mm[Hg][facility]aReg[facility]06-16-2022 13:46-0400Heart rate69 /Beatrice [facility]Pro[facility]06-16-2022 13:46-0400Mean blood wrypfoym864 mm[Hg][facility]06-16-2022 13:46-9044HlX0% (BldA) [Mass fraction]96 %[facility]06-16-2022 13:46-0400 Systolic blood ilcrnuhi580 mm[Hg][facility] 09-07-2021 12:48-0400Body ejajcyaxdrs99.6 [degF][facility]05-19-2022 12:48-0400Diastolic blood ohovzuns72 mm[Hg][facility]05-19-2022 12:48-0400Heart rate72 /min [facility]05-19-2022 12:48-0400Mean blood khzdcekl21 mm[Hg][facility]05-19-2022 12:48-9278KrC6% (BldA) [Mass fraction]96 %[facility]05-19-2022 12:48-0400Systolic blood mm[Hg][facility]05-19-2022 12:00-0400Heart rate69 /min [facility]05-19-2022 12:00-9185BlT2% (BldA) [Mass fraction]98 %[facility]05-15-2022 00:20-0400Body garjadotcbw24.78 [degF]Carlos Martin [facility]05-15-2022 00:20-0400 Diastolic blood bbbyogez05 mm[Hg]Carlos Martin [facility]05-15-2022 00:20-0400Heart rate86 /minNoah Martin [facility]05-15-2022 00:20-0400 Respiratory rate16 /minNoah Martin [facility]05-15-2022 00:20-3792ZxK7% (BldA) [Mass fraction]95 %Carlos Salazar [facility]05-15-2022 00:20-0400 Systolic blood aohmslnm905 mm[Hg]Carlos Salazar [facility]04-21-2022 12:35-0400Body wnghvgdpfis60.06 [degF]Rickey Askew [facility]04-21-2022 12:35-0400 Diastolic blood cqaamwwf48 mm[Hg]Rickey Askew [facility]04-21-2022 12:35-0400Heart rate77 /minPeter Azar [facility]04-21-2022 12:35-0400Mean blood jreztzrc95 mm[Hg]Rickey Askew [facility]04-21-2022 12:35-0400 Respiratory rate12 /minPeter Askew [facility]04-21-2022 12:35-0641OnK3% (BldA) [Mass fraction]97 %Rickey Askew [facility]04-21-2022 12:35-0400 Systolic blood omevsgaw886 mm[Hg]Rickey Askew [facility]04-06-2022 10:27-0400Body vhrnyqvtbji67.88 [degF][facility]enthil [facility]Pro[facility]04-06-2022 10:27-0400Diastolic blood rredgqsa33 mm[Hg][facility]aReg[facility]04-06-2022 10:27-0400Heart rate59 /minSenthil HollidayK[facility]04-06-2022 10:27-0400Mean blood wocbsnxw127 mm[Hg][facility]04-06-2022 10:27-9682GxT9% (BldA) [Mass fraction]97 %[facility]04-06-2022 10:27-0400 Systolic blood ypfjnmfb368 mm[Hg][facility] 07-26-2021 10:00-0400Respiratory rate16 /min[facility]03-29-2022 12:18-0400Body oajquzbbimq02.7 [degF][facility]03-29-2022 12:18-0400Diastolic blood hakjlggz34 mm[Hg][facility]03-29-2022 12:18-0400Heart rate60 /minSum[facility]03-29-2022 12:18-0400 Mean blood hzvpmyas873 mm[Hg][facility] 07-18-2021 12:18-5719IeF6% (BldA) [Mass fraction]98 %[facility]03-29-2022 12:18-0400Systolic blood ngqlawnh380 mm[Hg] [facility]03-29-2022 12:00-0400Respiratory rate16 /minSum[facility]03-22-2022 10:20-0400 Body zhedcubvzid35.7 [degF]Gavino TABOR [phone]-[facility]fladFort [facility] [place] Encounters Encounter DateEncounter TypeCare ProviderFacilityStart: 02-24-2025 End: 21-79-7505Rdunvpyhf Result Mirza Rodriguez MD Work Phone: NO[facility] External Department UnsolicitedStart: 02-24-2025 End: 82-88-2958Btozqvxsc Result Mirza Rodriguez MD Work Phone: noms External Department UnsolicitedStart: 01-27-2025 End: 87-27-8654Zofkwxewf Result EncounterMary Rodriguez MD Work Phone: noms External Department UnsolicitedStart: 01-27-2025 End: 42-17-4871Yerbtctfn Result EncounterMary Rodriguez MD Work Phone: noms External Department UnsolicitedStart: 12-15-2024 End: 92-49-8184qinifvqyklTfarmae AdamowiczFacility:FTMCStart: 11-17-2024 End: 57-80-1454urclzdsecwCjvevoy AdamowiczFacility:FTMCStart: 10-20-2024 End: 93-27-4121fdsrbqglheFimsbbz AdamowiczFacility:FTMCStart: 10-20-2024 End: 33-06-5054Aqydwnl encounter procedureSenthil CalderaRegency Hospital Company Start: 09-30-2024 End: 87-54-3421Xtzmgxtl Result EncounterSenthil Caldera DO Work Phone: noms External Department UnsolicitedStart: 09-30-2024 End: 27-31-6353Mzpgfyal Result EncounterSenthil Caldera DO Work Phone: noms External Department UnsolicitedStart: 09-30-2024 End: 52-33-7486Yfkkrtv encounter procedureMary Rodriguez MD Work Phone: [facility] Work Phone: Start: 09-30-2024 End: 01-57-4843udkszcmplpCfhjw M Alda MD Work Phone: [facility] Work Phone: Start: 09-22-2024 End: 84-76-4996ditmpxpxetVwdeyzr AdamowiczFacility:FTMCStart: 09-22-2024 End: 39-06-5612Kmfkned encounter procedureTimothy [facility] Start: 09-09-2024 End: 12-55-5157gakpthiqyfPhrvfqw AdamowiczFacility:FTMCStart: 09-09-2024 End: 20-98-2850Dnbxjrx encounter procedureSum[facility] Start: 08-25-2024 End: 94-06-4893sxutvifefaTeuzegf AdamowiczFacility:FTMCStart: 08-25-2024 End: 98-14-0668Bplckcc encounter procedureAtrium Healthleopoldo [facility] Start: 08-17-2024 End: 26-50-6426Gclydswk Result EncounterSenthil Jodi Verenice DO Work Phone: [facility] External Department UnsolicitedStart: 08-17-2024 End: 39-78-8980Bszzbesd Result EncounterSenthil Caldera DO Work Phone: noms External Department UnsolicitedStart: 08-17-2024 End: 32-90-5930Haxujpl encounter procedureMary Rodriguez MD Work Phone: [facility] Work Phone: Start: 08-17-2024 End: 58-71-4235tmrfstqemiOqqsd M Alda MD Work Phone: [facility] Work Phone: Start: 07-28-2024 End: 09-22-4964ohhgffftsqElrlkjm AdamowiczFacility:FTMCStart: 07-28-2024 End: 80-21-9996Xfpnhte encounter procedureAtrium Healthleopoldo [facility] Start: 06-30-2024 End: 28-95-3356yrqsfdrqujUtzvfip AdamowiczFacility:FTMCStart: 06-30-2024 End: 96-30-5738Qiqgcbc [facility]Tim[facility] Start: 06-02-2024 End: 31-34-3365yvgfpwawowIsothiz AdamowiczFacility:FTMCStart: 06-02-2024 End: 32-02-0764Ommjzsk encounter procedureSum[facility] Start: 05-13-2024 End: 61-78-5058bjulczlpraRxaqbhl AdamowiczFacility:FTMCStart: 05-13-2024 End: 48-05-2603Cygygbd encounter procedureSum[facility] Start: 05-05-2024 End: 72-20-3576estxtfdjhdYfaenks AdamowiczFacility:FTMCStart: 05-05-2024 End: 02-91-9847Iqvwuvm encounter procedureSum[facility] Start: 04-29-2024 End: 73-57-5631Cqjtacbh Result EncounterSenthil Caldera DO Work Phone: [facility] External Department UnsolicitedStart: 04-29-2024 End: 69-23-5812Rdfqhjxy Result EncounterTimleopoldo Caldera DO Work Phone: n[facility] External Department UnsolicitedStart: 04-29-2024 End: 18-90-0036Qswknfg encounter procedureMary Rodriguez MD Work Phone: [facility] Work Phone: Start: 04-29-2024 End: 33-00-7372zpkzxoqpgwUcbdh M Alda MD Work Phone: [facility] Work Phone: Start: 04-07-2024 End: 84-49-4148fewcipumdlIvbgnda AdamowiczFacility:FTMCStart: 04-07-2024 End: 27-72-8854Oocdlwk encounter procedureSum[facility] Start: 03-10-2024 End: 12-11-7994cexjpxsphrZbdsuzt AdamowiczFacility:FTMCStart: 03-10-2024 End: 75-86-1191Iaaaqze encounter procedureSum[facility] Start: 02-25-2024 End: 46-27-9831uzethdanxwKmyxjdn AdamowiczFacility:FTMCStart: 02-25-2024 End: 19-63-4019Skuwbcp encounter procedureSum[facility] Start: 02-11-2024 End: 83-60-5173yqrxttdfceFxokbcg AdamowiczFacility:FTMCStart: 02-11-2024 End: 35-44-5237Kotpdls encounter procedureSum[facility] Start: 01-09-2024 End: 66-00-1991rvuauazebrFsjsmow AdamowiczFacility:FTMCStart: 01-09-2024 End: 15-34-1627Rkryvym encounter procedureSum[facility] Start: 01-01-2024 End: 94-81-6598Mtxvlyrfw Result EncounterMary Rodriguez MD Work Phone: [facility] External Department UnsolicitedStart: 01-01-2024 End: 02-23-1729Yegyxxndy Result EncounterMary Rodriguez MD Work Phone: [facility] External Department UnsolicitedStart: 12-30-2023 End: 69-97-3306Eqrgpfut Result EncounterSenthil Caldera DO Work Phone: [facility] External Department UnsolicitedStart: 12-30-2023 End: 36-20-7172Hvcxoouw Result EncounterSenthil Caldera DO Work Phone: noms External Department UnsolicitedStart: 12-30-2023 End: 64-08-1185Lzbodak encounter procedureMD Mary Rodriguez Work Phone: [facility] Work Phone: Start: 12-30-2023 End: 13-41-5621altjxgjvxsXT Mary Rodriguez Work Phone: [facility] Work Phone: Start: 12-27-2023 End: 54-48-5512Qkhqyttfi Result EncounterMary Rodriguez MD Work Phone: [facility] External Department UnsolicitedStart: 12-27-2023 End: 43-25-1573Axdzrrxcn Result EncounterMary Rodriguez MD Work Phone: [facility] External Department UnsolicitedStart: 09-12-2023 End: 27-09-0165dduimthhgqUxidghn VereniceFacility:FTMCStart: 09-12-2023 ambulatoryTimothy VereniceFacility:FTMCStart: 09-12-2023 End: 06-60-5072Vqsbexo encounter procedureAtrium Healthleopoldo [facility] Start: 08-30-2023 End: 09-61-7654zeuwhvwtkyNN Mary Merly Rodriguez Work Phone: [facility] Work Phone: Start: 08-30-2023 End: 09-65-9149Eythmkf encounter procedureMD Mary Rodriguez Work Phone: [facility] Work Phone: Start: 06-12-2023 End: 51-12-8665krmhfqpzfrKeulqui VereniceFacility:FTMCStart: 06-12-2023 End: 87-55-9546Vioybid encounter procedureTimleopoldo [facility] Start: 52-65-4254Urhxhxpqm Result EncounterMary Rodriguez MD Work Phone: noms External Department UnsolicitedStart: 06-05-2023 Clinisync Result EncounterMary Rodriguez MD Work Phone: noms External Department UnsolicitedStart: 05-31-2023 External Result EncounterTimleopoldo Caldera DO Work Phone: noms External Department UnsolicitedStart: 05-31-2023 External Result EncounterTimleopoldo Caldera DO Work Phone: noms External Department UnsolicitedStart: 05-31-2023 End: 47-12-3418oqgkjqlkseZB Mary Rodriguez Work Phone: [facility] Work Phone: Start: 05-31-2023 End: 61-01-2796Lzxcuhy encounter procedureMD Mary Rodriguez Work Phone: [facility] Work Phone: Start: 20-34-5572Gatksulil Result EncounterMary Rodriguez MD Work Phone: [facility] External Department UnsolicitedStart: 05-24-2023 Clinisync Result EncounterMary Rodriguez MD Work Phone: [facility] External Department UnsolicitedStart: 05-01-2023 End: 43-37-8969rfhnkutdxeVmwhtlx AdamowiczFacility:FTMCStart: 05-01-2023 End: 42-47-8483Pbmdjhy encounter procedureSenthil [facility] Start: 01-30-2023 End: 73-25-6066tyjipaqiapMvdfkap AdamowiczFacility:FTMCStart: 01-30-2023 End: 93-74-1582Qmjtvlu encounter procedureSenthil [facility] Start: 12-20-2022 End: 13-37-7006Qwzcfqjvwa and management of inpatientZaheer Sloan Facility:FTMCStart: 12-20-2022 End: 22-52-7401Bdcrvidqjg and management of inpatientMbbeefo NaborJUKGREER [facility] Start: 12-19-2022 End: 74-67-3156Gkcsaqcfh department patient visitTim Ran [facility] Start: 12-17-2022 End: 25-55-0906Awtejwuft department patient visitJodiamante Murphy [facility] Start: 12-14-2022 End: 09-60-8233jaogytoxueCszxvos HARWOODFacility:CD:[id number]: 12-14-2022 End: 00-05-1467Ynipxy pelvic examinationJeiraj [facility] Start: 14-02-6393enoisdnfplIXS- Lorie Slater Facility:CD:[id number]: 11-16-2022 End: 43-22-3809nmfwjtdhmwTnojibb VereniceFacility:CD:[id number]: 11-16-2022 End: 03-16-5139Ha-Between VisitPeter [facility] Start: 11-06-2022 End: 72-33-7182jijujmkoqiTacazmd HARWOODFacility:CD:[id number]: 11-06-2022 End: 01-09-4356Qnn-SiteSammy [facility] Start: 11-04-2022 End: 76-27-4160onoxmyxubuXgpufrw HARWOODFacility:FTMCStart: 11-01-2022 End: 17-55-8981xljjwfvkdnOqewr MocarterawiFacility:FTMCStart: 11-01-2022 End: 64-07-3070LzpujtxfoncJtmhlll Matt LOPEZ [facility] Start: 09-25-2022 End: 31-25-0174Wfuvdpa [facility] procedureSum[facility] Start: 08-01-2022 End: 56-38-5068Czztjza encounter procedureSum[facility] start: 07-30-2022 End: 79-12-7158Jbtvqet encounter procedureSum[facility] start: 07-25-2022 End: 00-11-7226JsjlzaiamFngfahrSumma Health [facility] Campus Start: 07-09-2022 End: 76-14-0598Ajvkxuo encounter procedureSum[facility] Start: 06-06-2022 End: 60-60-7006Nodjxth encounter procedureSum[facility] start: 03-28-2022 End: 10-61-1871Fgkrqiy encounter procedureSum[facility] Start: 03-17-2022 End: 38-76-1111MegxnabnzMbmf Katie Demboske [facility] start: 01-18-2022 End: 70-31-6693Uqeanhk encounter procedureSum[facility] start: 01-02-2022 End: 82-42-2698ZgoozngjtKlmrdvlSumma Health [facility] Start: 12-26-2021 End: 30-34-0489Rrbmchm [facility] procedureTimThe [facility] Start: 12-21-2021 End: 42-54-9437Hckyqly encounter procedureNohemi Rajani Radha [facility] Start: 11-30-2021 End: 81-42-8384Zzlcuvi encounter procedureTimThe [facility] Start: 11-27-2021 End: 43-34-5042Dlapdxc encounter procedureSum[facility] start: 11-25-2021 End: 06-44-9949OzmswsnlfAxxl Katie Radha [facility] Start: 11-02-2021 End: 66-12-0136Dfvwqsj encounter procedureNohemi Gerard Radha [facility] Start: 11-01-2021 End: 55-13-1937Uuomsdy encounter procedureTimThe [facility] Start: 10-05-2021 End: 42-12-4466Lxcnatf encounter procedureSum[facility] start: 10-02-2021 End: 66-82-1699Wbljywl encounter procedureSum[facility] start: 09-07-2021 End: 74-46-5997Edcojvj encounter procedureSum[facility] Start: 09-03-2021 End: 86-61-3483Yklezlnfh department patient visitAdrianageetha Salazar [facility] Start: 08-21-2021 End: 49-31-2215Cvbghac [facility]Sum[facility] Start: 08-21-2021 End: 93-42-2861Epebkvv [facility] Start: 08-10-2021 End: 12-43-2973Faozsod encounter procedureRickey Askew [facility] Start: 08-07-2021 End: 03-20-1028Vlmwyci [facility] Start: 07-26-2021 End: 35-63-5219Sauujtz [facility]Sum[facility] Start: 07-26-2021 End: 29-07-0425Vhdbcje [facility]Sum[facility] Start: 07-25-2021 End: 42-21-1813Ugf-admission assessmentMichael R NILL [facility] Start: 07-18-2021 End: 23-51-6240Xmrflwf [facility]Sum[facility] Start: 07-11-2021 End: 99-17-5266Fzegity encounter procedureMichael R NILL [phone]-OxbxpFort [facility] [place] Procedures DateProcedureProcedure DetailPerforming ClinicianStart: 46-57-4334IXT LEN Rodriguez MD Work Phone: Start: 98-65-9839JGI Pepe Rodriguez MD Work Phone: Start: 74-70-4006NIPSQWW POCT GLUCOMETERSTimothy Jodi Caldera DO Work Phone: Start: 38-67-1757Rsqqhmgd emission tomography with computed tomographyMary Rodriguez MD Work Phone: Start: 04-28-5530WTJYCIQ POCT GLUCOMETERSTimothy J Verenice DO Work Phone: Start: 54-25-6954Knckuswz emission tomography with computed tomographyMary Rodriguez MD Work Phone: Start: 56-70-1516IXATJVY POCT GLUCOMETERSTimothy Jodi Caldera DO Work Phone: Start: 51-42-0272Alnrnays emission tomography with computed tomographyMary Rodriguez MD Work Phone: Start: 96-84-4789ZKD CBC WITH AUTO DIFFRtoño Rodriguez MD Work Phone: Start: 33-09-9424RDPVKOF POCT GLUCOMETERSTimothy Jodi Caldera DO Work Phone: Start: 44-02-4875Xauuhavy emission tomography with computed tomographyMD Rugkeith [place] Work Phone: Start: 09-78-8677ZTP CBC WITH AUTO DIFFRtoño Rodriguez MD Work Phone: Start: 50-39-6777Jpzehlyr emission tomography with computed tomographyMD Rugkeith Jennifer Work Phone: Start: 39-00-9162AGC CBC WITH AUTO DIFFRtoño Rodriguez MD Work Phone: Start: 59-93-0392Wiroyuur emission tomography with computed tomographyMD Mary [place] Work Phone: Start: 63-91-4305UXYJSDM POCT GLUCOMETERSSenthil Caldera DO Work Phone: Start: 42-89-7074OEQ CBC WITH AUTO DIFFRneetun Merly Rodriguez MD Work Phone: Start: 27-97-4089Odcr needle biopsy of breastMichael NILL Comment on above:rightStart: 28-42-3741DebskgfniqoTjnjq Alda MD Work Phone: Tonsillectomy and adenoidectomyMichael NILL Plan of Treatment DateCare ActivityDetailAuthorStart: 15-98-6077Fsxzxvkcy for malignant neoplasm of colonNOMS HealthcareStart: 93-23-9934XOHXR-19 Vaccine ( season) COVID-19 Vaccine ( season)NOMS HealthcareStart: 49-15-0072Pihksmpsz vaccinationInfluenza Vaccine (#1)NOMS HealthcareStart: 48-31-9708Qlnpbpadz vaccinationInfluenza Vaccine (#1)NOMS HealthcareStart: 12-52-8395Nnvlv screening for proteinDiabetes: Urine Protein ScreeningNOIN HealthcareStart: 01-24-2023 Hemoglobin A1c measurementDiabetes: Hemoglobin A5URFNE HealthcareStart: 89-51-9469Kufjoxnty vaccinationInfluenza Vaccine (#1)NOMS HealthcareStart: 05-25-2023Medicare Annual Wellness (AWV)Medicare Annual Wellness (AWV)NOMS HealthcareStart: 26-13-8447Zdeoe screening for proteinDiabetes: Urine Protein ScreeningNOMS HealthcareStart: 82-39-5808Qxqkzojq screeningDiabetes: Retinopathy ScreeningNOMS HealthcareStart: 39-92-5636Hcvopafwy for malignant neoplasm of colonNOMS Healthcare Immunizations Immunization DateImmunizationNotesCare ZpzzrkgzBmpjjyez45-38-1473vowanvwwv virus vaccine, unspecified formulationMary Rodriguez MD Work Phone: NOIN Btptcwckgb74-62-2430Jgvoksdvc, High-dose Seasonal, Quadrivalent, Preservative FreeMary Rodriguez MD Work Phone: [facility] CenterBsfadiwalh48-24-5785vfgmdafrd virus vaccine, unspecified formulationMary Rodriguez MD Work Phone: [facility] CenterKnhqlwhphi50-29-7726iaeopmtux virus vaccine, unspecified formulationMichael NILL [phone]-DpmmfFort [facility] [place] 01789839-80-4004priojngel, high dose seasonal, preservative-freeMary Rodriguez MD Work Phone: [facility] CenterUneiripalc88-21-0742thvfnxfdp, high dose seasonal, preservative-freeMary Rodriguez MD Work Phone: [facility] CenterVmaniikbre29-63-8908kpkhzvcrb, high dose seasonal, preservative-freeMary Rodriguez MD Work Phone: [facility] CenterNroosonpxi87-30-6060rmioxhqskvrb conjugate vaccine, 13 valentRtoño Rodriguez MD Work Phone: [facility] Payers DatePayer CategoryPayerPolicy [id number] [id number] Health Insurance [id number] Health [id number]-pay2023Medicaid [id number] 2023Medicaid [id number] (Managed Care) [id number] [facility] at276A 2022-Present [address] [place] [address] 1.2.840.016983.1.13.693.2.7.3.718[id number] 2.16.840.1.873319.3.57[id number] 2.16.840.1.318090.3.57[id number] 2.16.840.1.031100.3.57[id number] 2.16.840.1.756912.3.579.[id number] 2.16.840.1.888411.3.579.2.04536-90-0798Djkbbhe05403579 2.16.840.1.018607.3.579.2.97632-66-9661Iczrywp77480032 2.16.840.1.176800.3.579.2.52262-93-4736Rxiasgz62159006 2.16.840.1.864205.3.579.2.83381-23-1557Hnbyoso13783304 2.16.840.1.892938.3.579.2.11509-25-7847Bpiyklg78688871 2.16.840.1.480207.3.579.2.32927-78-9937Dgjnxyf45774346 2.16.840.1.954977.3.579.2.11426-66-9749Xlsywkm91792424 2.16.840.1.239924.3.579.2.42533-84-7451Muwjomy12607115 2.16.840.1.567122.3.579.2.60471-92-1213Ovfcddf17550863 2.16.840.1.866051.3.579.2.68090-55-5275Ouawzyb57164189 2.16.840.1.175018.3.579.2.03543-34-7052Bsunroc67602285 2.16.840.1.068210.3.579.2.38581-11-2926Ddqlguz63551034 2.16.840.1.317981.3.579.2.59398-15-5623Qvedyqw72717703 2.16.840.1.602927.3.579.2.64794-74-2194Vrkbebs52688454 2.16.840.1.694339.3.579.[id number] 2.16.840.1.023717.3.579.2.80770-89-2352Dirgxdq12002702 2.16.840.1.917418.3.579.2.19119-29-6995Dslevdh95947837 2.16840.1.235125.3.579.2.41169-16-5345Ouxdmuc85267499 2.16.840.1.989265.3.579.2.19485-38-0922Pelzagx93341409 2.16.840.1.706162.3.579.2.55590-79-3217Daymwnf93083423 2.16.840.1.092246.3.579.2.22807-54-2828Azxcjwu79218674 2.16.840.1.202551.3.579.2.68529-83-6159Dqylizy91984014 2..840.1.858004.3.579.2.93823-36-8645Xacckzb03404667 2..840.1.563784.3.579.2.09228-05-6302Crigicj09018061 2.16.840.1.903176.3.579.2.409Ykkfpzn33965130 2.16.840.1.009737.3.579.2.531 Ucnrudt39838993 2.16.840.1.193002.3.579.2.176Kljdgkw73981421 2.16.840.1.716627.3.579.2.482Qpmwmfg21987589 2.16.840.1.952208.3.579.2.531 Social History DateTypeDetailFacilityStart: 07-04-2021 End: 82-77-8473Shtmhvl smoking statusNever smoked tobacco (finding)[facility] Start: 08-41-9646Lfoohgc smoking statusUniversity Hospitals TriPoint [facility] Start: 99-51-0946Ret Assigned At BirthFeGrand [facility] Start: 61-94-7545Scqhcic use and exposureSmokeless tobacco non-userNOMS HealthcareStart: 07-77-6288Ddstfgj of Social functionNOMS HealthcareStart: 40-20-8365Wue Assigned At BirthNot on fileNOMS HealthcareStart: 71-64-2721Syk Assigned At BirthMercy Memorial HospitalTobacco smoking status NHISUnknown if ever smokedGreen Cross Hospital Work Phone: Start: 09-42-3605TotRwucgcn sex unknown (finding) [facility] Hospitalexual OrientationRegency Hospital Company Start: 07-11-2018 End: 95-59-5681VwdTzjykz (finding)[facility] Functional Status QhujTbhrniaiwvNvacuuKwuybcwg96-13-3266Pdczgsrzqq StatusNoRegency Hospital Company08-31-2023Functional StatusRegency Hospital Company08-30-2023 Functional StatusN/AFDetwiler Memorial Hospital08-28-2023Functional StatusN/A [facility]07-14-2023Functional StatusN/[facility]07-13-2023Functional StatusRegency Hospital Company Clinical Notes 07-11-2021 to 09-30-2024 Note Date & PkglRajwYoysuysr74-40-5280 Nuclear medicine Diagnostic study [place] [address] Nuclear Medicine Report Signed Patient: Marlen Staley MR#: [id number] : 1950 Acct:[id number] Age/Sex: 74 / F ADM Date: 5 Loc: Room: Type: [facility] Attending Dr: Senthil Caldera - [facility] DO Copies to: Fady Muir Jr, DO [...] excluded. Impression dictated by: Fady Muir Jr., D.OAspen 09/30/2024 11:48 AM Dictation Location: [place] [address] Transcribed By: [facility] 09/30/24 1148 Dictated By: Fady Muir Jr, DO 09/30/24 1057 Signed By: 09/30/24 1148 [facility]05-21-2025 NoteOncology Progress Note Chief Complaint Follow up [...] cm in length. ER greater than 95, AL greater than 95. Her2 1+ (this is [...] 104. September 12, 2023 Recent PET/CT from [facility] that was compared to a PET/CT from May notes slightly enlarging right breast nodule 2.3 cm from previous 1.8 cm. No other evidence of metastatic disease or progression of disease. continues on 200mg kisquali and exemestane. no complaints. 01/09/24 hb 10.2 stable. creat 1.2 stable. labs scanned from [place]. Recent PET/CT from [facility] notes enlargement of her primary right breast mass from 2.3cm to 3.8cm. we think she is on kisquali 400mg daily (600mg is standard dose). she is supposed to be on exemestane daily as well. review of med list from [facility] confirms. will raise kisquali to full dose and stop exemestane and start faslodex. 05/13/24 she is doing well, enjoys the half-way for the most part. continues kisquali. no changes in her breast. [facility]. continues faslodex kisquali. her pet/ct at [facility] with improved tumor and axillary adenopathy. 09/09/24 recent labs from may 26 noted hb 9.8, mcv 105, albumin 3.3, creat 1.6, b12 good. continues monthly faslodex (with kisquali). pet/ct from 08/07/24 at [facility] notes no significant change in pet/ct finding compared to04/29/24. Residual abnormal activity in right breast with subthreshold activity involving right axillary lymph nodes. she is inquiring about variability in her injection site discomfort. faslodex. Physical Examination PS 3 - lives in [facility], in wheelchair today, cant stand or walk [...] cancer, Stage IV. ER greatly positive and AL greatly positive. Her2 negative. two bony mets on pet/ct in june 2021. These are not lesions that are very easy to biopsy. She is very hesitant for aggressive therapy or chemotherapy at pr (more content not included)...[facility]04-28-2025 Nuclear medicine Diagnostic study [facility] [place] [address] [place] [address] Nuclear Medicine Report Signed Patient: Marlen Staley MR#: [id number] : 1950 Acct:[id number] Age/Sex: 74 / F ADM Date: 5 Loc: PE Room: Type: [facility] CLI Attending Dr: Senthil Caldera - [facility] DO Copies to: Fady Muir Jr, DO [...] Jr., DAspenOAspen 08/17/2024 3:15 PM Dictation Location: [place] [address] Transcribed By: [facility] 08/17/24 1515 Dictated By: Fady Muir Jr, DO 08/17/24 1455 Signed By: 08/17/24 1515 [facility]01-25-2025 NoteOncology Progress Note Chief Complaint Breast Ca; [...] cm in length. ER greater than 95, AL greater than 95. Her2 1+ (this is [...] 104. September 12, 2023 Recent PET/CT from [facility] that was compared to a PET/CT from May notes slightly enlarging right breast nodule 2.3 cm from previous 1.8 cm. No other evidence of metastatic disease or progression of disease. continues on 200mg kisquali and exemestane. no complaints. 01/09/24 hb 10.2 stable. creat 1.2 stable. labs scanned from [place]. Recent PET/CT from [facility] notes enlargement of her primary right breast mass from 2.3cm to 3.8cm. we think she is on kisquali 400mg daily (600mg is standard dose). she is supposed to be on exemestane daily as well. review of med list from [facility] confirms. will raise kisquali to full dose and stop exemestane and start faslodex. 05/13/24 she is doing well, enjoys the half-way for the most part. continues kisquali. no changes in her breast. [facility]. continues faslodex kisquali. her pet/ct at [facility] with improved tumor and axillary adenopathy. Physical Examination PS 3 - lives in [facility], in wheelchair today, cant stand or walk [...] cancer, Stage IV. ER greatly positive and AL greatly positive. Her2 negative. two bony mets [...] 200mg daily 3wks o (more content not included)...[facility]01-08-2025 Nuclear medicine Diagnostic study [facility] [place] [address] [place] [address] Nuclear Medicine Report Signed Patient: Marlen Staley MR#: [id number] : 1950 Acct:[id number] Age/Sex: 73 / F ADM Date: 5 Loc: Room: Type: [facility] CLI Attending Dr: Senthil Caldera - [facility] DO Copies to: MD Senthil Guo DO~ [...] Carlos Guaman M.D.04/29/2024 4:17 PM Dictation Location: [place] [address] Transcribed By: LENNOX 04/29/24 1617 Dictated By: Carlos Guaman MD 04/29/24 1607 Signed By: 04/29/24 1613 [facility] Work Phone: 1(174) 820-675509-19-2024 NoteOncology Progress Note Chief Complaint Breast Ca; [...] cm in length. ER greater than 95, AL greater than 95. Her2 1+ (this is [...] 104. September 12, 2023 Recent PET/CT from [facility] that was compared to a PET/CT from May notes slightly enlarging right breast nodule 2.3 cm from previous 1.8 cm. No other evidence of metastatic disease or progression of disease. continues on 200mg kisquali and exemestane. no complaints. 01/09/24 hb 10.2 stable. creat 1.2 stable. labs scanned from [place]. Recent PET/CT from [facility] notes enlargement of her primary right breast mass from 2.3cm to 3.8cm. we think she is on kisquali 400mg daily (600mg is standard dose). she is supposed to be on exemestane daily as well. review of med list from [facility] confirms. will raise kisquali to full dose and stop exemestane and start faslodex. Physical Examination PS 3 - lives in [facility], in wheelchair today, cant stand or walk [...] cancer, Stage IV. ER greatly positive and AL greatly positive. Her2 negative. two bony mets [...] repeat labs weekly sh (more content not included)...[facility]02-21-2024 Hospital Discharge instructions Follow Up Care 06/12/2023 11:56:20 With:Senthil Caldera DO ONC Address: [place] [address] [place] [phone] Fax Business (1) When: Unknown With:Senthil Caldera DO ONC Address: [address] [phone] Fax Business (1) When: Unknown Comments:f/u in [address] priorcbc, cmp, sb0154 prior to f/u and in 2 months. [facility]02-21-2024 Hospital Discharge instructions Patient Education 06/12/2023 11:39:22 [...] high-protein foods. Preparing meals Add whole milk, qtrt-sah-gvmj, or heavy cream to cereal, pudding, soup, [...] potatoes. Grains Pasta. Quick breads. Muffins. Pancakes. Beyhq-lt-bet cereal. Meats and other proteins Peanut butter. [...] provider. Document Revised: 03/12/2021 Document Reviewed: 03/12/2021 [employer] Patient Education 2022 [employer]. 06/12/2023 11:25:57 Breast Cancer, Female Breast Cancer, [...] breastcancer. Follow these instructions at home: Take rehz-trn-ngqhvyu and prescription medicines only as told by [...] is important. Where to find more information [place] [employer]: www.cancer.org National Cancer [place]: www.cancer.gov Contact a health care provider if: [...] provider. Document Revised: 02/26/2022 Document Reviewed: 02/26/2022 [employer] Patient Education 2022 [employer] 06/12/2023 11:25:02 Fall Prevention in the Home, Adult, Otyr-nt-Zvys Fall Prevention in the Home, Adult Falls [...] Keep items that you use often in gvhq-me-tulkx places. Lower the shelves around your home [...] of the way. Do not use floor tristanian or wax that makes floors slippery. What [...] Disease Control and Prevention, STE[place]: www.cdc.gov National [place] on Aging: www.derrick.nih.gov Contact a doctor if: [...] provider. Document Revised: 01/08/2022 Document Reviewed: 11/09/2020 [employer] Patient Education 2022 [employer]. Follow Up Care 05/01/2023 15:02:18 With:Senthil Caldera DO, ONC Address: [address] [phone] Fax Business (1) When: Unknown Comments:cbc, cmp, iron studies, b12, foalte, epo [id number] monthly. f/u in 3 months. change arimidex to exemestane 25mg daily. pet/ct prior to f/u.make sure images from pet from may and august are both in our system for review at f/u in august. [facility]10-11-2023 Hospital Discharge instructions Follow Up Care 01/30/2023 15:16:04 With:Senthil Caldera Address: [address] [place] [phone] Fax Business (1) When: Unknown Comments:f/u in 6 wks. pet/ct in [facility] soon. f/u after. cbc, cmp, iron studies, b12, foalte, epo, hw5465 prior to f/u. [facility]09-03-2023 Evaluation + Plan noteExtracted from: Title:Discharge NoteAuthor:Zaheer Sloan DODate:12/23/22 Discharge To, Anticipated II - Jail Unit [...] When Contact Information Azar HANKS, Rickey Lynn, [address] [address]- Additional Instructions: Antibiotic Medicine, Adult, Uhnd-wl-Njip Extracted from:Title:APSO NoteAuthor:Zaheer Sloan DODate:12/22/22 1. UTI [...] Ordered: Initial Hospital Care/Day Moderate 55 Minutes 22166 Sbsq Hospital Care/Day Straight Fwd 25 Minutes 26254 2. Age-related cognitive decline (R41.81: Age-related cognitive [...] visit growing greater than 100,000 gram-negative glynn imager's Continue antibiotics, will continue keflex due to pts hx of PNC allergy and allready took keflex Wait for culture sensitivities Ordered: Initial Hospital Care/Day Moderate 55 Minutes 99938 2. Age-related cognitive decline (R41.81: Age-related cognitive [...] Panel 10/25/22 * Comprehensive Metabolic Panel 11/22/22 [facility]09-03-2023 Hospital Discharge instructions Patient Education 12/23/2022 09:48:15 Antibiotic Medicine, Adult, Muhc-xj-Kwfi Antibiotic Medicine, Adult Antibiotic medicines treat infections [...] medicine. Follow these instructions at home: Take ugln-rzq-milsbyw and prescription medicines as told by your [...] provider. Document Revised: 01/26/2020 Document Reviewed: 01/26/2020 [employer] Patient Education 2022 [employer]. Follow Up Care 12/20/2022 15:04:36 With:Azar HANKS, NIKOLE Benedict Address: [address] [place] [address]- When: Unknown [facility]09-03-2023 NoteAdmission and Discharge Information Admit Date/Time:12/20/2022 16:52 [...] who is admitted as well. When patient andmichaelsband came and they both had strong odor [...] 39.2 % Lymph Auto - 42.1 % [place] Auto - 13.6 % Eos Auto - 2.5 % Basophil Auto - 2.6 % Neutro Absolute - 1.3 E9/L Lymph Absolute - 1.4 E9/L [place] Absolute - 0.4 E9/L Eos Absolute - [...] - 111 mg/dL POC Device SN - [id number] POC User ID - [id number] POC Username - JUAN HENNESSY CBC w/ [...] Disposition Discharge To, An (more content not included)...[facility] Comment on above:Result Comment: Electronically Signed By: Zaheer Sloan DO\Date and Time Signed: 12/23/22 09:49 [id number] NotePT evaluation completed with an AMPAC score 02/12. Pt currently requires Mod A for bed mobility andMax A x2 for STS transfers. Pt was unable to ambulate and a Max A stand pivot transfer was needed to get from bed to bedside commode. Due to pt's current cognition and functional status, would recommend SNF/ECF.[facility]09-01-2023 NoteCRM entered the room to discuss [...] over the phone. Call to dtr Helen [phone] and she is agreeable to any SNF. ANt dc TBD. Karolina says they will be able to provide pt's chemo to facility.[facility] on above:Result Comment: Electronically Signed By: Brooklynn Connor.johnnie\Date and Time Signed: 12/21/22 11:15 [id number] NoteBasic Information Admit Date/Time:12/20/2022 16:52 Chief Complaint Pt came in via [facility] for dysuria and weakness. Pt states she was here earlier and has only taken one of the ATBs. History of Present Illness Prwe12-iugn-hkw female with past medical history of breast [...] her are currently trying to get into [facility]. They are on a waiting list. Per [...] as well and was recently admitted to half-way and signed herself out as well as [...] 15:45:00) Lymph Auto: 28.4 % (12/20/22 15:45:00) [place] Auto: 12.5 % (12/20/22 15:45:00) Eos Auto: 1.3 % (12/20/22 15:45:00) Basophil Auto: 3.5 % High (12/20/22 15:45:00) Neutro Absolute: 2.1 E9/L (12/20/22 15:45:00) Lymph Absolute: 1.1 E9/L (12/20/22 15:45:00) [place] Absolute: 0.5 E9/L (12/20/22 15:45:00) Eos Absolute: [...] 10.2 pg/mL (12/20/22 18:40:00) (more content not included)...[facility]:Result Comment: Electronically Signed By: Zaheer Sloan DO.br\Date and Time Signed: 12/20/22 19:18 [id number] Evaluation + Plan noteExtracted from:Title:ED NoteAuthor:Ran HANKS, TimDate: 12/20/22 1. Generalized weakness (R53 .1: Weakness) 2. Frequent falls (R29.6: Repeated falls) 3. Anemia (D64.9: Anemia, unspecified) 4. Dehydration (E86.0: Dehydration) 5. Urinary tract infection (N39.0: Urinary tract infection, site not specified) Orders: cephalexin, 500 mg = 1 cap(s), Oral, QID, X 7 day(s), # 28 cap(s), Refills(s) 0, Pharmacy: [facility], 167.6, cm, 12/19/22 20:43:00 EDT, Height/Length [...] Panel 10/25/22 * Comprehensive Metabolic Panel 11/22/22 [facility]08-31-2023 Hospital Discharge instructions Patient Education 12/20/2022 00:37:19 Urinary Tract Infection, Adult, Wpdp-jo-Ptzh Urinary Tract Infection, Adult A urinary tract [...] Follow these instructions at home: Medicines Take ljyi-xac-fokfalw and prescription medicines only as told by [...] provider. Document Revised: 11/18/2020 Document Reviewed: 11/18/2020 [employer] Patient Education 2022 [employer]. 12/20/2022 00:37:19 Anemia Anemia Anemia is a [...] spleen. Follow these instructions at home: Take nesn-xlx-wyzqtgn and prescription medicines only as told by [...] provider. Document Revised: 02/20/2022 Document Reviewed: 03/15/2020 [employer] Patient Education 2022 [employer]. 12/20/2022 00:37:19 Dehydration, Adult, Lnkd-ie-Enbi Dehydration, Adult Dehydration is condition in which [...] of fat or sugar. General instructions Take egmr-kqg-foeomen and prescription medicines only as told by [...] start slowly drinking other clear fluids. Take fkcv-muk-msqwtrd and prescription medicines only as told by your doctor. Get help right away if you have any symptoms of very bad dehydration. This information is not intended to replace advice given to you by your health care provider. Make sure you discuss any questions you have with your health care provider. Document Revised: 11/19/2019 Document Reviewed: 11/19/2019 [employer] Patient Education 2022 [employer]. Follow Up Care 12/19/2022 20:39:35 With:Rickey Askew Address: [facility] [place] [phone] Business (1) When:12/21/2022 [facility]08-28-2023 Hospital Discharge instructions Patient Education 12/17/2022 13:33:49 [...] Follow these instructions at home: Medicines Take haoy-tbu-iogrevt and prescription medicines only as told by [...] as fried or sweet foods. ?Take an qaty-wcz-bubdqls or prescription medicine for constipation. If you [...] provider. Document Revised: 02/05/2022 Document Reviewed: 02/05/2022 [employer] Patient Education 2022 [employer]. Follow Up Care 12/17/2022 10:20:15 With:JOSÉ ANTONIO VARGAS Address: [address] [place] [phone] Business (1) When:12/20/2022 12:53:13 With:Gavino Lugo Address: [address] [place] [phone]- Business (1) When:12/20/2022 12:52:03 With:Rickey Askew Address: [address] [place] [address] [place] [address]- Business (1) When:12/20/2022 12:51:59 [facility]08-28-2023 Evaluation + Plan noteExtracted from: Title:ED NoteAuthor:Kael SIMPSON, JansenDate:12/17/22 Fall (W19.XXXA: Unspecified fall, initial encounter) Lumbar compression fracture (S32.000A: Wedge compression fracture of unspecified lumbar vertebra, initial encounter for closed fracture) Ordered: oxycodone, 5 mg = 1 tab(s), Oral, q6hr, X 3 day(s), # 15 tab(s), Refills(s) 0, Pharmacy: [facility], 168, cm, 12/17/22 10:29:00 EDT, Height/Length [...] Panel 10/25/22 * Comprehensive Metabolic Panel 11/22/22 [facility]07-18-2023 NoteHOSPITAL REGULATIONS: All Positive and Important Negative [...] RE-DICTATEAS NOTHING CAME THROUGH Gavino Lugo D.O. Dictated: 11/02/2022 [id number] Transcribed: 11/02/2022 cc:Rickey Askew M.D.St. [facility] HospitalComment on above:Result Comment: Electronically Signed By: Gavino Lugo DO T\.br\Date and Time Signed: 11/06/22 07:17 [id number] NoteHOSPITAL REGULATIONS: All Positive and Important Negative [...] going to rehabilitation. Her friend from the [facility], which is her old neighbor, [...] Nursing staff as well as friend from [place] is present. She has bruising to the [...] of infection. Social Service for rehabilitation placement [facility]. Orthopedics to sign off with follow up in the office in 4 weeks for a repeat x-ray examination of the pelvis. She voiced a verbal understanding and her friend from [place] is present. Ivett Palacio Dictated: 11/05/2022 [id number] Transcribed: 11/05/2022 cc:Rickey Askew M.D.[facility] CenterComment on above:Result Comment: Electronically Signed By: Gavino Lugo DO\.br\Date and Time Signed: 11/06/22 07:17 [id number] Hospital Discharge instructions Patient Education 11/04/2022 12:28:31 [...] Consider working with a physical therapist or product trainer who can develop an exercise plan to help you gain muscle strength. General instructions Take jqol-cyg-qwdwzoh and prescription medicines only as told by [...] provider. Document Revised: 03/11/2022 Document Reviewed: 03/11/2022 [employer] Patient Education 2022 [employer]. Follow Up Care 11/01/2022 19:54:24 With:Hollis MERRILL Address: [address] [phone] Business (1) When: Unknown Comments:Urinary retnetion w/dooley With:Gavino Lugo Address: [address] [place] [address]- Business (1) When: Unknown Comments:Call for followup appointment in 4 weeks for repeat pelvis xray With:Rickey Askew Address: [address] [place] [address] Business (1) When: Unknown [facility]07-16-2023 Evaluation + Plan noteExtracted from: Title:Discharge NoteAuthor:Trevor HANKS, madDate:11/04/22 Stable Discharge To, Anticipated II - Jail Unit Discharged to - prison unit Discharge Diet(s): Regular (11/02/22 15:25:00) Prescriptions anastrozole 1 mg Tab, 1 mg= 1 tab(s), Oral, Daily, 11 refills Arimidex 1 mg Tab, 1 mg= 1 tab(s), Oral, Daily, 3 refills ergocalciferol 50,000 intl units Cap, 65954 International_Unit= 1 cap(s), Oral, q7day Kisqali (200 [...] bedtime) With When Contact Information Gavino Lugo [address] [place], [place] [phone] (1) Additional Instructions: Call for followup appointment in 4 weeks for repeat pelvis xray Rickey Askew In [address] [place] [id number] (1) Additional Instructions: Addendum by Trevor HANKS, [facility] on November 04, 2022 12:36:52 [...] thrombosis (DVT) prophylaxis (Z79.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 She was accepted to long-term facility and will be discharged there. On [...] 65.9 % Lymph Auto - 24.6 % [place] Auto - 5.0 % Eos Auto - 3.3 % Basophil Auto - 1.2 % Neutro Absolute - 4.4 E9/L Lymph Absolute - 1.6 E9/L [place] Absolute - 0.3 E9/L Eos Absolute - [...] Discharge Disposition Discharge To, Anticipated II - Jail Unit Discharged to - prison unit Discharge Diet Discharge Diet(s): Regular (11/02/22 15:25:00) Discharge Medication List Prescriptions anastrozole 1 mg Tab (more content not included)...[facility] Comment on above:Result Comment: Electronically Signed By: Trevor HANKS, Wyatt\.br\Date and Time Signed: 11/04/22 12:37 [id number] NotePT Evaluation done this date. Pt. with 12/13 on AM-PAC this date. She is very resistant to movement due to pain. She is unable to stand even with attempts of max A. Will benefit from SNF.[facility]07-14-2023 NoteChief Complaint [facility] c/o chest bruise from fall earlier today. c/o increasing weakness. denies thinners or hitting head with earlier fall. denies PMH. hx of DM. 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 History of Present Illness Patient is a [...] % (11/01/22::00) Lymph Auto: 24.6 % (11/01/22::00) [place] Auto: 5 % (11/01/22::00) Eos Auto: 3.3 % (11/01/22::00) Basophil Auto: 1.2 % (11/01/22::00) Neutro Absolute: 4.4 E9/L (11/01/22:01:00) Lymph Absolute: 1.6 E9/L (11/01/22 22::00) [place] Absolute: 0.3 E9/L (11/01/22::00) Eos Absolute: 0.2 E9/L (11/01/22::00) Basophil Absolute: 0.1 E9/L (11/01/22 22::00) Glucose Lvl: 130 mg/dL (11/01/22::00) BUN: 26 [...] Low (11/01/22::00) Bili Total: 0.9 mg/dL (11/01/22 22::00) Bili Direct: 0.2 mg/dL (11/01/22::00) Bili Indirect: 0.7 mg/dL (11/01/22 22:01:00) Troponin: 7.5 pg/mL Low (11/01/22 22:01:00) UA Spec Desc: Clean Catch (11/01/22 23:20:00) UA Color: Yellow2 (11/01/22 23:20:00) UA Clarity: SL CLOUDY (11/01/22 23:20:00) UA Spec Grav: 1.025 (11/01/22 23:20:00) UA pH: 6.0 (11/01/22 23:20:00) UA Protein: 1+ Abnormal (11/01/22 23:20:00) UA Glucose: NEGATIVE1 (11/01/22 23:20:00) UA Ketones: Trace2 (11/01/22:20:00) UA Bili: NEGATIVE1 (11/01/22 23:20:00) UA Blood: [...] medications once reconciled. Hydralazine (more content not included)...[facility]:Result Comment: Electronically Signed By: Mariia LOPEZ DO\Date and Time Signed: 11/02/22 01:35 [id number] Hospital Discharge instructions Follow Up Care 09/27/2022 14:06:46 With:Senthil Caldera Address: [address] [phone] Fax Business (1) When: Unknown Comments:f/u in 3 months. pet/ct prior to f/u. cont arimidex and kisquali. cbc, cmp and [id number] monthly. [facility]02-15-2023 Hospital Discharge instructions Follow Up Care 06/06/2022 13:40:28 With:Senthil Caldera Address: [address] [phone] Fax Business (1) When: Unknown Comments:cbc, cmp, [id number] in 4 weeks and prior to f/u in 8 weeks. f/u with civil drafter. iron studies, b12, folate with next labs. [facility]12-07-2022 Hospital Discharge instructions Follow Up Care 03/28/2022 14:49:31 With:Senthil Caldera Address: [address] [phone] Fax Business (1) When: Unknown Comments:f/u in 2 months. pet/ct prior to f/ucbc, cmp, [id number], every 6 weeks. [facility]09-29-2022 Hospital Discharge instructions Follow Up Care 01/18/2022 14:52:57 With:Senthil Caldera Address: [address] [phone] Fax Business (1) When: Unknown Comments:raise kisquali to 400mg for 3wks on and 1 week off. f/u with me or rajani in 2 months. cbc, cmp, [id number] prior to f/ucbc, cmp monthly onthis medicaztion cont arimidex. [facility]09-01-2022 Hospital Discharge instructions Follow Up Care 12/21/2021 14:19:38 With:Senthil Caldera Address: [address] [phone] Fax Business (1) When: Unknown Comments:continue Kisqali 200mg 3wks on, 1wk offcbc, cmp in 4wks and 8wksPET scan in Novfollow-up in 8wks with Dr. Hernandez after PET scan [facility]08-11-2022 Hospital Discharge instructions Follow Up Care 11/30/2021 13:55:25 With:Senthil Caldera Address: [address] [phone] Fax Business (1) When: Unknown Comments:re-start kisqali at 200mg daily x 3 weeks, then 1 week offcmp weekly x 4wksfollow-up with Dr. Hernandez in 4wkscbc, cmp at follow-up [facility]07-14-2022 Hospital Discharge instructions Follow Up Care 11/02/2021 12:27:30 With:Senthil Caldera Address: [address] [phone] Fax Business (1) When: Unknown Comments:cont arimidex. Hold kisquali for 3 wks, recheck cbc, cmp, prior to f/u. hold lasix. Send this note to Dr. Kofi sumner. [facility]06-16-2022 Hospital Discharge instructions Follow Up Care 10/05/2021 14:21:47 With:Senthil Caldera Address: [address] [phone] Fax Business (1) When: Unknown Comments:continue kisqalifollow-up in 1mocbc, cmp at follow-up [facility]05-19-2022 Hospital Discharge instructions Follow Up Care 09/07/2021 13:41:37 With:Senthil Caldera Address: [address] [phone] Fax Business (1) When: Unknown Comments:continue Kisqali follow-up in 1 mocbc, cmp, [id number] at follow-up [facility]05-15-2022 Evaluation + Plan noteExtracted from: Title:ED NoteAuthor:Martin LUDWIG, Carlos SAspenDate:09/03/21 Acute urticaria (L50.8: Othe r urticaria) Orders: [...] Location:.ONCOLOGY Appointment Type:ONC Office Visit 15 (FT) [facility]05-15-2022 Hospital Discharge instructions Patient Education 09/03/2021 00:46:59 [...] instructions at home: Medicines Take and apply ykxp-bhh-pfjtxgd and prescription medicines only as told by [...] what causes your hives. Take and apply rgmw-cuq-vdufpqy and prescription medicines only as told by your health care provider. Keep all follow-up visits as told by your health care provider. This is important. This information is not intended to replace advice given to you by your health care provider. Make sure you discuss any questions you have with your health care provider. Document Released: 04/08/2006 Document Revised: 10/22/2018 Document Reviewed: 10/22/2018 [employer] Patient Education 2020 [employer]. Follow Up Care 09/03/2021 00:14:38 With:Rickey Askew Address: [facility] [phone]- Business (1) When:Within 3 Day(s) [facility]04-21-2022 Hospital Discharge instructions Follow Up Care 08/10/2021 13:38:09 With:Nohemi Garcia Address: [facility] [address] [place] [phone] Business (1) When: Unknown Comments:f/u 1 monthcont kisquali.cbc, cmp, [id number] at f/u. With:Senthil Caldera Address: [address] [place] [phone] Fax Business (1) When: Unknown [facility]04-05-2022 Hospital Discharge instructions Follow Up Care 07/25/2021 15:46:11 With:Senthil Caldera Address: [address] [phone] Fax Business (1) When: Unknown Comments:f/u in 2 wks, cbc, cmp, [id number] at f/u. [facility]03-22-2022 Hospital Discharge instructions Follow Up Care 07/11/2021 14:05:16 With:Senthil Caldera Address: [address] [phone] Fax Business (1) When: Unknown Comments:echo and port sooni will call Dr. Tabor. f/u with me in 2 wks plan AC. Cbc, cmp, ceapet/ct prior to f/u. [facility] Future Appointments Appointment Date:07/18/2021 12:00:00 PM Scheduled Provider:Senthil Caldera DO Location:.ONCOLOGY Appointment Type:ONC Office Visit New 45 (FT) [facility] General Surgery [place] Evaluation + Plan note Future Appointments Appointment Date:08/08/2021 10:00:00 AM Scheduled Provider: [facility] Type:US Breast (FT) Appointment Date:08/09/2021 10:30:00 AM Scheduled Provider: Location:[facility] Appointment Type:Surgical PAT FT Appointment Date:08/10/2021 12:30:00 PM Scheduled Provider:Senthil Caldera DO Location:.ONCOLOGY Appointment Type:ONC Office Visit 15 (FT) Appointment Date:08/17/2021 08:00:00 AM Scheduled Provider: Location:[facility] Appointment Type:Surgery FT Appointment Date:08/22/2021 10:20:00 AM Scheduled Provider:Gavino TABOR MD Location:[facility] Appointment Type: Post Op 15 Future Scheduled Tests Laboratory* CA 27 29 08/09/21 * CBC w/ Auto Diff 08/09/21 * CBC w/ Auto Diff 07/26/21 * CEA 07/26/21 * Comprehensive Metabolic Panel 08/09/21 * Comprehensive Metabolic Panel 07/26/21 Radiology* US Perc Biopsy Lymph Node 08/08/21 [facility] Future Appointments Appointment Date:08/10/2021 12:30:00 PM Scheduled Provider:Senthil Caldera DO Location:.ONCOLOGY Appointment Type:ONC Office Visit 15 (FT) Diagnostic Tests Pending * CA 27 29 08/07/21 Future Scheduled Tests Laboratory* CBC w/ Auto Diff 07/26/21 * CEA 07/26/21 * Comprehensive Metabolic Panel 07/26/21 [facility] Appointments Appointment Date:08/10/2021 12:30:00 PM Scheduled Provider:Senthil Caldera DO Location:.ONCOLOGY Appointment Type:ONC Office Visit 15 (FT) Future Scheduled Tests Laboratory* CBC w/ Auto Diff 07/26/21 * CEA 07/26/21 * Comprehensive Metabolic Panel 07/26/21 [facility] Future Appointments Appointment Date:09/07/2021 12:30:00 PM Scheduled Provider:Senthil Caldera DO Location:.ONCOLOGY Appointment Type:ONC Office Visit 15 (FT) Future Scheduled Tests Laboratory* CBC w/ Auto Diff 08/24/21 * CEA 08/24/21 * Comprehensive Metabolic Panel 08/24/21 [facility] Appointments Appointment Date:08/21/2021 02:00:00 PM Scheduled Provider: Location:.ONCOLOGY Appointment Type:ONC Patient Education - 1hr (FT) Appointment Date:09/07/2021 12:30:00 PM Scheduled Provider:Senthil Caldera DO Location:.ONCOLOGY Appointment Type:ONC Office Visit 15 (FT) Future Scheduled Tests Laboratory* CBC w/ Auto Diff 09/07/21 * CEA 09/07/21 * Comprehensive Metabolic Panel 09/07/21 [facility] Future Appointments Appointment Date:09/07/2021 12:30:00 PM Scheduled Provider:Senthil Caldera DO Location:FT.ONCOLOGY Appointment Type:ONC Office Visit 15 (FT) [facility] Future Appointments Appointment Date:10/05/2021 01:30:00 PM Scheduled Provider:Senthil Caldera DO Location:FT.ONCOLOGY Appointment Type:ONC Office Visit 15 (FT) Future Scheduled Tests Laboratory* CA 27 29 10/08/21 * CBC w/ Auto Diff 10/08/21 * Comprehensive Metabolic Panel 10/08/21 [facility] Future Appointments Appointment Date:10/05/2021 01:30:00 PM Scheduled Provider:Senthil Caldera DO Location:FT.ONCOLOGY Appointment Type:ONC Office Visit 15 (FT) Diagnostic Tests Pending * CA 27 29 10/02/21 [facility] Future Appointments Appointment Date:11/02/2021 01:45:00 PM Scheduled Provider:Senthil Caldera DO Location:FT.ONCOLOGY Appointment Type:ONC Office Visit 15 (FT) Future Scheduled Tests Laboratory* CA 27 29 11/02/21 * CBC w/ Auto Diff 11/02/21 * Comprehensive Metabolic Panel 11/02/21 [facility] Future Appointments Appointment Date:11/02/2021 11:15:00 AM Scheduled Provider:Nohemi Garland Location:FT.ONCOLOGY Appointment Type:ONC Office Visit 15 (FT) Diagnostic Tests Pending * CA 27 29 11/01/21 [facility] Future Appointments Appointment Date:11/30/2021 01:15:00 PM Scheduled Provider:Senthil Caldera DO Location:FT.ONCOLOGY Appointment Type:ONC Office Visit 15 (FT) Future Scheduled Tests Laboratory* CBC w/ Auto Diff 12/03/21 * Comprehensive Metabolic Panel 12/03/21 [facility] Future Appointments Appointment Date:11/30/2021 01:15:00 PM Scheduled Provider:Senthil Caldera DO Location:FT.ONCOLOGY Appointment Type:ONC Office Visit 15 (FT) [facility] Future Appointments Appointment Date:12/21/2021 01:15:00 PM Scheduled Provider:Senthil Caldera DO Location:.ONCOLOGY Appointment Type:ONC Office Visit 15 (FT) Future Scheduled Tests Laboratory* CBC w/ Auto Diff 12/21/21 * Comprehensive Metabolic Panel 12/21/21 [facility] Future Appointments Appointment Date:01/18/2022 [...] Panel 01/18/22 * Comprehensive Metabolic Panel 01/25/22 [facility] Future Appointments Appointment Date:01/18/2022 [...] Panel 01/18/22 * Comprehensive Metabolic Panel 01/25/22 [facility] Future Appointments Appointment Date:03/28/2022 [...] Panel 02/06/22 * Comprehensive Metabolic Panel 02/13/22 [facility] Future Appointments Appointment Date:03/28/2022 02:15:00 PM Scheduled Provider:Senthil Caldera DO Location:FT.ONCOLOGY Appointment Type:ONC Office Visit 15 (FT) Future Scheduled Tests Laboratory* CBC w/ Auto Diff 03/08/22 * CBC w/ Auto Diff 04/05/22 * Comprehensive Metabolic Panel 03/08/22 * Comprehensive Metabolic Panel 04/05/22 [facility] Future Appointments Appointment Date:06/06/2022 01:15:00 PM Scheduled Provider:Senthil Caldera DO Location:FT.ONCOLOGY Appointment Type:ONC Office Visit 15 (FT) [facility] Future Appointments Appointment Date:08/01/2022 02:00:00 PM Scheduled Provider:Senthil Caldera DO Location:FT.ONCOLOGY Appointment Type:ONC Office Visit 15 (FT) Future Scheduled Tests Laboratory* CBC w/ Auto Diff 06/06/22 * Comprehensive Metabolic Panel 06/06/22 [facility] Future Appointments Appointment Date:08/01/2022 02:00:00 PM Scheduled Provider:Senthil Caldera DO Location:FT.ONCOLOGY Appointment Type:ONC Office Visit 15 (FT) Diagnostic Tests Pending * CA 27 29 07/09/22 Future Scheduled Tests Laboratory* CA 27 29 07/31/22 * CBC w/ Auto Diff 07/31/22 * Comprehensive Metabolic Panel 07/31/22 [facility] Future Appointments Appointment Date:08/01/2022 02:00:00 PM Scheduled Provider:Senthil Caldera DO Location:FT.ONCOLOGY Appointment Type:ONC Office Visit 15 (FT) Diagnostic Tests Pending * CA 27 29 07/30/22 [facility] Future Appointments Appointment Date:09/27/2022 [...] Transferrin 08/29/22 * Vitamin B12 Level 08/29/22 [facility] Future Appointments Appointment Date:09/27/2022 01:45:00 PM Scheduled Provider:Nohemi Garland Location:FT.ONCOLOGY Appointment Type:ONC Office Visit 30 (FT) Diagnostic Tests Pending * CA 27 29 09/25/22 [facility] Future Appointments Appointment Date:11/22/2022 02:15:00 PM Scheduled Provider:Senthil Caldera DO Location:FT.ONCOLOGY Appointment Type:ONC Office Visit 15 (FT) Future Scheduled Tests Laboratory* CA 27 29 10/25/22 * CA 27 29 11/22/22 * CBC w/ Auto Diff 10/25/22 * CBC w/ Auto Diff 11/22/22 * Comprehensive Metabolic Panel 10/25/22 * Comprehensive Metabolic Panel 11/22/22 [facility] Future Appointments Appointment Date:12/26/2022 02:45:00 PM Scheduled Provider:Senthil Caldera DO Location:FT.ONCOLOGY Appointment Type:ONC Office Visit 15 (FT) Future Scheduled Tests Laboratory* CA 27 29 10/25/22 * CA 27 29 11/22/22 * CBC w/ Auto Diff 10/25/22 * CBC w/ Auto Diff 11/22/22 * Comprehensive Metabolic Panel 10/25/22 * Comprehensive Metabolic Panel 11/22/22 [facility] Extended Care Evaluation + Plan note [...] Panel 04/01/23 * Comprehensive Metabolic Panel 05/02/23 [facility] Future Appointments Appointment Date:06/12/2023 [...] Panel 04/01/23 * Comprehensive Metabolic Panel 05/02/23 [facility] Future Appointments Appointment Date:09/12/2023 [...] Transferrin 09/12/23 * Vitamin B12 Level 09/12/23 [facility] Future Appointments Appointment Date:01/09/2024 10:00:00 AM Scheduled Provider:Senthil Caldera DO Location:.ONCOLOGY Appointment Type:ONC Office Visit 30 (FT) Diagnostic Tests Pending * CA 27 29 09/12/23 * Erythropoietin Level 09/12/23 * CBC w/ Auto Diff 11/12/23 * Comprehensive Metabolic Panel 11/12/23 * CA 27 29 11/12/23 * CBC w/ Auto Diff 12/26/23 * Comprehensive Metabolic Panel 12/26/23 * CA 27 29 12/26/23 [facility] Future Appointments Appointment Date:05/13/2024 02:40:00 PM Scheduled Provider:Senthil Caldera DO Location:FT.ONCOLOGY Appointment Type:ONC Office Visit 20 (FT) Diagnostic Tests Pending * CBC w/ Auto Diff 02/08/24 * Comprehensive Metabolic Panel 02/08/24 * Ferritin 05/10/24 * Iron Level 05/10/24 * Iron Percent Saturation 05/10/24 * Transferrin 05/10/24 * Vitamin B12 Level 05/10/24 * Folate Level 05/10/24 * Erythropoietin Level 05/10/24 [facility] Evaluation + Plan note Future Appointments Appointment Date:02/25/2024 02:30:00 PM Scheduled Provider: Location:.ONCOLOGY Appointment Type:ONC Injection (FT) Appointment Date:03/10/2024 02:00:00 PM Scheduled Provider: Location:.ONCOLOGY Appointment Type:ONC Injection (FT) Appointment Date:05/13/2024 02:40:00 PM Scheduled Provider:Senthil Caldera DO Location:.ONCOLOGY Appointment Type:ONC Office Visit 20 (FT) [facility] Evaluation + Plan note Future Appointments Appointment Date:03/10/2024 02:00:00 PM Scheduled Provider: Location:.ONCOLOGY Appointment Type:ONC Injection (FT) Appointment Date:05/13/2024 02:40:00 PM Scheduled Provider:Senthil Caldera DO Location:.ONCOLOGY Appointment Type:ONC Office Visit 20 (FT) [facility] Evaluation + Plan note Future Appointments Appointment Date:04/07/2024 02:00:00 PM Scheduled Provider: Location:.ONCOLOGY Appointment Type:ONC Injection (FT) Appointment Date:05/13/2024 02:40:00 PM Scheduled Provider:Senthil Caldera DO Location:.ONCOLOGY Appointment Type:ONC Office Visit 20 (FT) [facility] Evaluation + Plan note Future Appointments Appointment Date:05/05/2024 02:00:00 PM Scheduled Provider: Location:FT.ONCOLOGY Appointment Type:ONC Injection (FT) Appointment Date:05/13/2024 02:40:00 PM Scheduled Provider:Senthil Caldera DO Location:.ONCOLOGY Appointment Type:ONC Office Visit 20 (FT) [facility] [employer] + Plan note Future Appointments Appointment Date:05/13/2024 02:40:00 PM Scheduled Provider:Senthil Caldera DO Location:.ONCOLOGY Appointment Type:ONC Office Visit 20 (FT) Appointment Date:06/02/2024 02:45:00 PM Scheduled Provider: Location:.ONCOLOGY Appointment Type:ONC Injection (FT) Appointment Date:06/30/2024 03:00:00 PM Scheduled Provider: Location:.ONCOLOGY Appointment Type:ONC Injection (FT) Appointment Date:07/28/2024 03:00:00 PM Scheduled Provider: Location:.ONCOLOGY Appointment Type:ONC Injection (FT) [facility] Evaluation + Plan note Future Appointments Appointment Date:06/02/2024 [...] Iron Percent Saturation 09/09/24 * Transferrin 09/09/24 [facility] evaluation + Plan note Future Appointments Appointment Date:06/30/2024 03:00:00 PM Scheduled Provider: Location:FT.ONCOLOGY Appointment Type:ONC Injection (FT) Appointment Date:07/28/2024 03:00:00 PM Scheduled Provider: Location:.ONCOLOGY Appointment Type:ONC Injection (FT) Appointment Date:09/09/2024 02:40:00 PM Scheduled Provider:Senthil Caldera DO Location:FT.ONCOLOGY Appointment Type:ONC Office Visit 20 (FT) [facility] D4Paluation + Plan note Future Appointments Appointment Date:07/28/2024 03:00:00 PM Scheduled Provider: Location:.ONCOLOGY Appointment Type:ONC Injection (FT) Appointment Date:09/09/2024 02:40:00 PM Scheduled Provider:Senthil Caldera DO Location:FT.ONCOLOGY Appointment Type:ONC Office Visit 20 (FT) [facility] D4Paluation + Plan note Future Appointments Appointment Date:08/25/2024 03:00:00 PM Scheduled Provider: Location:.ONCOLOGY Appointment Type:ONC Injection (FT) Appointment Date:09/09/2024 02:40:00 PM Scheduled Provider:Senthil Caldera DO Location:FT.ONCOLOGY Appointment Type:ONC Office Visit 20 (FT) [facility] Evaluation + Plan note Future Appointments Appointment [...] Scheduled Provider: Location:.ONCOLOGY Appointment Type:ONC Injection (FT) [facility] evaluation + Plan note Future Appointments Appointment Date:09/22/2024 02:00:00 PM Scheduled Provider: Location:.ONCOLOGY [...] CEA 02/24/25 * CA 27 29 02/24/25 [facility] evaluation + Plan note Future Appointments Appointment Date:10/20/2024 02:00:00 PM Scheduled Provider: Location:.ONCOLOGY Appointment Type:ONC Injection (FT) Appointment Date:11/17/2024 02:00:00 PM Scheduled Provider: Location:.ONCOLOGY Appointment Type:ONC Injection (FT) Appointment Date:12/15/2024 02:30:00 PM Scheduled Provider: Location:.ONCOLOGY Appointment Type:ONC Injection (FT) Appointment Date:03/10/2025 02:00:00 PM Scheduled Provider:Senthil Caldera DO Location:.ONCOLOGY Appointment Type:ONC Office Visit 20 (FT) [facility] evaluation + Plan note Future Appointments Appointment Date:11/17/2024 02:00:00 PM Scheduled Provider: Location:FT.ONCOLOGY Appointment Type:ONC Injection (FT) Appointment Date:12/15/2024 02:30:00 PM Scheduled Provider: Location:FT.ONCOLOGY Appointment Type:ONC Injection (FT) Appointment Date:03/10/2025 02:00:00 PM Scheduled Provider:Senthil Caldera DO Location:FT.ONCOLOGY Appointment Type:ONC Office Visit 20 (FT) [facility] Evaluation noteNo assessment information available [facility] Work Phone: Hospital course Narrative No data available for this section [facility] General [facility] Discharge instructions No data available for this section [facility] note No data available for this section [facility] Summary Purpose Family History No Family History [...] section and content) DATE CREATED AUTHOR 09/08/2021 [facility] DATE CREATED AUTHOR AUTHOR'S ORGANIZ ATION 09/14/2023 [facility] DATE CREATED AUTHOR AUTHOR'S ORGANIZ ATION 09/15/2023 [facility] DATE CREATED AUTHOR AUTHOR'S ORGANIZ ATION 10/05/2023 [facility] DATE CREATED AUTHOR AUTHOR'S ORGANIZ ATION 01/15/2024 [facility] DATE CREATED AUTHOR AUTHOR'S ORGANIZ ATION 11/02/2024 [facility] DATE CREATED AUTHOR AUTHOR'S ORGANIZ ATION 12/17/2024 [facility] Care Team (unrecognized sect ion and content) Team MemberRelationshipSpecialtyStart DateEnd Date Rickey Askew MD [address] [place] [address] PCP - [facility]06/20/22 Rickey Askew MD [address] [place] [address] PCP - [facility]09/19/22 Team Status: Active Member Role Status Scott Rodriguez MD Primary Care Provider Active Team Status: Inactive Member Role Status Scott Caldera II, DO Attending Provider Active Start: May 31, 2023 End: May 31toño Rodriguez [facility] Care ProviderActiveStart: May 31, 2023 End: May 31, 2023 Team Status: Inactive Member Role Status Scott Rodriguez MD Primary Care Provider Active S tart: August 30, 2023 End: August 30, 2023Senthil Caldera II, DOAttending ProviderActiveStart: August 30, 2023 End: August 30, 2023 Team Status: Inactive Member Role Status Scott Rodriguez MD Primary Care Provider Active S tart: December 30, 2023 End: December 30, 2023Timleopoldo Caldera [facility] , DOAttending ProviderActive Start: December 30, 2023 End: December 30, 2023Team MemberRelationshipSpecialtyStart DateEnd Date Rickey Askew MD [address] [place] [address] PCP - [facility]06/20/22 Unallocated, Iliana Haskins MD [address] [facility] [place] [address] PCP - [facility]08/14/23Team MemberRelationshipSpecialtyStart DateEnd Date Unallocated, Iliana Haskins MD [address] [facility] [place] [address] PCP - [facility]08/14/23 Team Status: Inactive Member Role Status Dates Mary Rodriguez MD Primary Care Provider Active S tart: April 29, 2024 End: April 29, 2024Timleopoldo Caldera [facility] , DOAttending ProviderActive Start: April 29, 2024 End: April 29, 2024Team MemberRelationshipSpecialtyStart DateEnd Date Unallocated, Iliana Haskins MD [address] [facility] [place] [address] PCP - [facility]08/14/23 Team Status: Inactive Member Role Status Scott Rodriguez MD Primary Care Provider Active S tart: August 17, 2024 End: August 17, 2024Timleopoldo Caldera [facility] , DOAttending ProviderActiveStart: August 17, 2024 End: August 17, 2024 Team Status: Inactive Member Role Status Scott Rodriguez MD Primary Care Provider Active S tart: September 30, 2024 End: September 30, 2024Timleopoldo Caldera [facility] , DOAttending ProviderActiveStart: September 30, 2024 End: September 30, 2024Team MemberRelationshipSpecialtyStart DateEnd Date Unallocated, Nommichelle Haskins MD [address] [place] [address] PCP - GeneralFamily Medicine08/14/23 Goals (unrecognized section and content) Goals may [...] BE BASED ON THE PRIMARY CLINICAL RECORDS. [facility]. provides no warranty or guarantee of the accuracy or completeness of information in this document.
[2025-03-24 13:35] LABS: Potassium 5.3 mmol/L (3.5-5.1)
== END 2025-03-24 12:36 | disposition home or self-care (01) ==
LOC: LAB 12:35
PROVIDERS: PCP Family Medicine; Visit Provider Family Medicine
DX: E87.5 Hyperkalemia (principal)
CPT/HCPCS: 36415; 84132

== ENCOUNTER 2025-03-27 10:29 | Outpatient (REF) | payer MEDICARE, MEDICAID, SELFPAY ==
--- OUTSIDE RECORDS SUMMARY | 2023-10-16 09:15 | XMS_ITS ---
Author Organization [facility] Address [address] [place] [address] [place] [address] Care Team Providers Care Wood Planer Name Role Phone Mary Rodriguez Primary Care Provider UnavailGerardo Saunders Unavailable [phone] Encounters Encounter Location Date Provider Diagnosis [address] [address] 10/16/2023 Gerardo Sosa Plan Of Treatment No Information Progress Notes * Florina HERNANDEZDOB: 0 (74 yo F)Acc No.[id number]:10/16/2023 Patient:?Florina Hernandez :?TOLU KeithMDOB:1950???Age:73 Y???Sex: FemaleDate:10/16/2023hone:[phone]:[place], [id number]:Mary Rodriguez * Electronic signature of Gerardo Sosa DPM on 03/27/2025 at 10:35 AM ESTSign off status: Pending * Provider: Merly Sosa DPM Date: 0 10/16/2023 Generated for Printing/Faxing/eTransmitting on:?03/27/2025 10:35 AM EST
--- OUTSIDE RECORDS SUMMARY | 2024-01-15 10:15 | XMS_ITS ---
Author Organization [facility] Address [address] [place] [address] [place] [address] Care Team Providers Care Shipyard Laborer Name Role Phone Mary Rodriguez Primary Care Provider UnavailGerardo Saunders Unavailable [phone] Encounters Encounter Location Date Provider Diagnosis [address] [address] 01/15/2024 Gerardo Sosa Plan Of Treatment No Information Progress Notes * Florina HERNANDEZDOB: 0 (74 yo F)Acc No.[id number]:01/15/2024 Patient:?Florina Hernandez :?TOLU KeithMDOB:1950???Age:73 Y???Sex: FemaleDate:01/15/2024hone:[phone]:One [place], [place]Wju:Mary Rodriguez * Electronic signature of Gerardo Sosa DPM on 03/27/2025 at 10:36 AM ESTSign off status: Pending * Provider: Merly Sosa DPM Date: 0 01/15/2024 Generated for Printing/Faxing/eTransmitting on:?03/27/2025 10:36 AM EST
--- OUTSIDE RECORDS SUMMARY | 2024-04-08 08:45 | XMS_ITS ---
Author Organization [facility] Address [address] [place] [address] [place] [address] Care Team Providers Care Handle Sewer Name Role Phone Mary Rodriguez Primary Care Provider UnavailGerardo Saunders Unavailable [phone] Encounters Encounter Location Date Provider Diagnosis [address] [address] 04/08/2024 Gerardo Sosa Plan Of Treatment No Information Progress Notes * Florina HERNANDEZDOB: 0 (74 yo F)Acc No.[id number]:04/08/2024 Patient:?Florina Hernandez :?TOLU KeithMDOB:1950???Age:73 Y???Sex: FemaleDate:04/08/2024hone:[phone]:One [place], [place]Znd:Mary Rodriguez * Electronic signature of Gerardo Sosa DPM on 03/27/2025 at 10:35 AM ESTSign off status: Pending * Provider: Merly Sosa DPM Date: 06/09/2023 Generated for Printing/Faxing/eTransmitting on:?03/27/2025 10:35 AM EST
--- OUTSIDE RECORDS SUMMARY | 2024-07-15 08:45 | XMS_ITS ---
Author Organization [facility] Address [address] [place] [address] [place] [address] Care Team Providers Care Facilities Custodian Name Role Phone Mary Rodriguez Primary Care Provider UnavailGerardo Saunders Unavailable [phone] Encounters Encounter Location Date Provider Diagnosis [address] [address] 07/15/2024 Gerardo Sosa Plan Of Treatment No Information Progress Notes * Florina HERNANDEZDOB: 0 (74 yo F)Acc No.[id number]:07/15/2024 Patient:?Florina Hernandez :?TOLU KeithMDOB:1950???Age:74 Y???Sex: FemaleDate:07/15/2024Phone:[phone]:One [place], [place]Bwy:Mary Rodriguez * Electronic signature of Gerardo Sosa DPM on 03/27/2025 at 10:35 AM ESTSign off status: Pending * Provider: Merly Sosa DPM Date: 0 07/15/2024 Generated for Printing/Faxing/eTransmitting on:?03/27/2025 10:35 AM EST
--- OUTSIDE RECORDS SUMMARY | 2024-10-07 08:45 | XMS_ITS ---
Author Organization [facility] Address [address] [place] [address] [place] [address] Care Team Providers Care Congressional Aide Name Role Phone Mary Rodriguez Primary Care Provider UnavailGerardo Saunders Unavailable [phone] Encounters Encounter Location Date Provider Diagnosis [address] [address] 10/07/2024 Gerardo Sosa Plan Of Treatment No Information Progress Notes * Florina HERNANDEZDOB: 0 (74 yo F)Acc No.[id number]:10/07/2024 Patient:?Florina Hernandez :?TOLU KeithMDOB:1950???Age:74 Y???Sex: FemaleDate:10/07/2024Phone:[phone]:One [place], [place]Bqi:Mary Rodriguez * Electronic signature of Gerardo Sosa DPM on 03/27/2025 at 10:35 AM ESTSign off status: Pending * Provider: Merly Sosa DPM Date: 0 10/07/2024 Generated for Printing/Faxing/eTransmitting on:?03/27/2025 10:35 AM EST
--- OUTSIDE RECORDS SUMMARY | 2025-01-13 08:30 | XMS_ITS ---
Author Organization [facility] Address [address] [place] [address] [place] [address] Care Team Providers Care Block Sawyer Name Role Phone Mary Rodriguez Primary Care Provider UnavailGerardo Saunders Unavailable [phone] Encounters Encounter Location Date Provider Diagnosis [address] [address] 01/13/2025 Gerardo Sosa Plan Of Treatment No Information Progress Notes * Florina HERNANDEZDOB: 0 (74 yo F)Acc No.[id number]:01/13/2025 Patient:?Florina Hernandez :?TOLU KeithMDOB:1950???Age:74 Y???Sex: FemaleDate:01/13/2025Phone:[phone]:One [place], [place]Yxg:Mary Rodriguez * Electronic signature of Gerardo Sosa DPM on 03/27/2025 at 10:35 AM ESTSign off status: Pending * Provider: Merly Sosa DPM Date: 0 01/13/2025 Generated for Printing/Faxing/eTransmitting on:?03/27/2025 10:35 AM EST
--- OUTSIDE RECORDS SUMMARY | 2025-03-27 10:35 | XMS_ITS | Encounter Summary ---
Author Organization [facility] Address [address] [place] [address] Care Team Providers Care Freelance Programmer/App Developer Name Role Phone Unallocated, Noms Provider Primary Care Provi ramone Encounter Details DateTypeDepartmentCare Team (Latest Contact Info)Qqtrimyedgz11/03/2025Clinisync Result Encounter [facility] External Department Unsolicited Mary Rodriguez MD [address] [facility] [address] [place] [address] Social History Tobacco UseTypesPacks/DayYears UsedDateSmoking Tobacco: NeverSmokeless Tobacco: NeverPHQ-2AnswerDate RecordedPatient Health Questionnaire-2 [id number] CommentsUnknownSex and Gender InformationValueDate RecordedSex Assigned at BirthNot on fileLegal ZgzTxzrzn74/15/2023 7:27 PM EDTGender IdentityNot on fileSexual OrientationNot on filedocumented as of this encounter Plan of Treatment Not on file documented as of this encounter Procedures Procedure NamePriorityDate/TimeAssociated DiagnosisCommentsALL POTASSIUMRoutine 03/24/2025 12:03 PM EST documented in this encounter Results * (ABNORMAL) ALL POTASSIUM (03/24/2025 12:03 PM EST)ComponentValueRef RangeTest MethodAnalysis TimePerformed AtPathologist SignaturePOTASSIUM5.3(H)3.5 - 5.1 mmol/LTBHSpecimen (Source)Anatomical Location / LateralityCollection Method / VolumeCollection TimeReceived Time03/24/2025 12:03 PM EST03/24/2025 12:37 PM EST Narrative [facility] - 03/24/2025 1:36 PM EST [facility] DR[facility] Authorizing ProviderResult TypeResult StatusRosaliakeith Rodriguez MDCLINISYNCFinal Result Performing OrganizationAddressCity/State/ZIP CodePhone Number [facility] documented in this encounter Visit Diagnoses Not on filedocumented in this encounter Additional Health Concerns AssessmentNoted TimePHQ-9 Depression Total Score: 1:00 PM EDT documented as of this encounter Care Teams Team MemberRelationshipSpecialtyStart DateEnd Date Unallocated, Noms Provider, [address] [place] [address] PCP - GeneralFamily Medicine08/14/23documented as of this encounter
--- OUTSIDE RECORDS SUMMARY | 2025-03-27 10:35 | XMS_ITS | Clinical Summary ---
Author Organization [facility] Address [address] [facility] [place] [address] Care Team Providers Care Chargemaster Analyst Name Role Phone Unallocated, Noms Provider Primary Care Provi ramone Allergies Active AllergyReactionsCriticalityNoted DateCommentsPenicillin G012/15/2021 Other Reaction(s): Unknown PenicillinsShortness of breath,WlgbpknRigo25/26/2022ulfa AntibioticsShortness of izqxtyWmcz30/31/2023 Medications MedicationSigDispense QuantityRefillsLast FilledStart DateEnd DateStatus ribociclib [...] if needed for severe pain 120 tablet tive Active Problems ProblemNoted DateDiagnosed DateAxillary gwrjrfmezg56/05/2023reast cancer 10/24/2022HTN (hypertension)10/24/2022Malignant neoplasm of upper-outer quadrant of female myeulk3310/24/2022Malignant tumor of colon10/24/2022Mass of upper outer quadrant of right zbetyr2610/24/2022MI 36.0-36.9,adult10/24/20226378Danahki38/05/2023 Stmltybkcheajbqpcw75/05/4356Kjlvnesztkynm76/31/2023ain in left toe(s)09/19/2022 Pain in right toe(s)09/19/2022Malignant neoplasm of upper-outer quadrant of right female uuefye4809/13/2021lass 1 nivolsq7609/13/2021ure hypercholesterolemia 06/12/2021Type 2 diabetes mellitus without svavqnmkwmtqg88/02/2017H/O high risk medication deppeobxb33/28/2015Chronic edema03/19/2015Essential hypertension 03/19/2015Diabetes yavprnsq63/19/2015 Encounters DateTypeDepartmentCare NfocAbnxaryrkqe76/03/2025linisync Result Encounter [facility] External Department Unsolicited Mary Rodriguez MD 03/05/2025Telephone [facility] [address] [facility] [address] [place] [address] Emmie Billings, SHEEBA 02/24/2025linisync Result Encounter [facility] External Department Unsolicited Mary Rodriguez MD 01/27/2025linisync Result Encounter [facility] External Department Unsolicited Mary Rodriguez MD from Last 3 Months Immunizations ImmunizationAdministration DatesNext DueInfluenza, High Dose Seasonal, Preservative Free05/22/2019,03/19/2018,04/12/2017Influenza, High-dose Seasonal, Quadrivalent, Preservative Free02/13/2021neumococcal Conjugate PCV 13106/13/2016 Social History Tobacco UseTypesPacks/DayYears UsedDateSmoking Tobacco: NeverSmokeless Tobacco: Never Tobacco Cessation:Counseling Given: Not Answered PHQ-2AnswerDate RecordedPatient Health Questionnaire-2 Cclap1353 CommentsUnknownSex and Gender InformationValueDate RecordedSex Assigned at Not on fileLegal IdtMmclkz20/15/2023 7:27 PM EDTGender IdentityNot on fileSexual OrientationNot on file Last Filed Vital Signs Vital SignReadingTime TakenCommentsBlood Psewyhnt280/7807 1:39 PM EDT Yzbyn444410/24/2022 1:39 PM BOLJjzdcrskaqy01.3 ??C (97.3 ??F)10/24/2022 1:39 PM EDTRespiratory Rate--Oxygen Xlashcxvec85%10/24/2022 1:39 PM EDTInhaled Oxygen Concentration--Tywekx03.7 kg (189 lb)10/24/2022 1:39 PM VLCTkajns743.2 cm (5' 7 )10/24/2022 1:39 PM EDTBody Mass Index29.607 1:39 PM EDT Plan of Treatment Health MaintenanceDue DateLast DoneCommentsCT Csmnxpwgwzed70/19/1950FIT-DNA 1949FIT1949FOBT1949 3993Oxgiwgedoldfw02/19/1950Diabetes: Retinopathy Ykdfcxhtc56/19/1960Diabetes: Urine Protein Oposwyjou28/19/1969 Diabetes: Hemoglobin A1C/08/2022, 06/22/2022, 12/15/2021, Additional history existsCOVID-19 Vaccine ( season)/, 01/18/2021, 06/29/2020, Additional history existsInfluenza Vaccine (#1) 0/11/2023, 02/13/2021, 05/22/2019, Additional history exists Dhqqhoogskf80Colorectal Cancer Rbbfdhkle29/20/2030Mammogram Fkjjzxtgqtng59/10/2022, 04/10/2020Pneumococcal Vaccine: 65+ YearsCompleted 01/10/2023, 04/12/2017 Procedures Procedure NamePriorityDate/TimeAssociated DiagnosisCommentsALL POTASSIUMRoutine 03/24/2025 12:03 PM EST ALL NZZRBOFVTVunwoln86/05/2025 6:40 AM EST ALL YKJGYIJNBMcihnvr12/08/2025 11:00 AM EDT POCT GLYCATED HEMOGLOBIN, UWEIKDvbmqim23/05/2023 2:01 PM EDT Type 2 diabetes mellitus without complication, unspecified whether watermaster insulin use (HCC) BI MAMMOGRAM DIAGNOSTIC TOMOSYNTHESIS KSPUWRXPGJkmljbt72/10/2022 Disorder of breast, unspecified RWTOUNPUNDUZgpotzh65/20/2020 12:00 PM EST from Last 3 Months or Most Recently Relevant to Health Maintenance Results * (ABNORMAL) ALL POTASSIUM (03/24/2025 12:03 PM EST) Only the most recent of3 resultswithin the time period is included. ComponentValueRef RangeTest MethodAnalysis TimePerformed AtPathologist Signature POTASSIUM5.3(H)3.5 - 5.1 mmol/LTBHSpecimen (Source)Anatomical Location / LateralityCollection Method / VolumeCollection TimeReceived Time03/24/2025 12:03 PM EST03/24/2025 12:37 PM EST Narrative [facility] - 03/24/2025 1:36 PM EST [facility] DROP OFF Authorizing ProviderResult TypeResult StatusRugen M Donegal MDCLINISYNCFinal Result Performing OrganizationAddressCity/State/ZIP CodePhone Number [facility] * (ABNORMAL) POCT Glycated hemoglobin, total (10/24/2022 2:01 PM EDT)Component ValueRef RangeTest MethodAnalysis TimePerformed AtPathologist Signature Hemoglobin A1C6.2Specimen (Source)Anatomical Location / LateralityCollection Method / VolumeCollection TimeReceived JrwlInpqh27/05/2023 2:01 PM EDT Narrative Authorizing ProviderResult TypeResult StatusPeter Shane Azar YASMINEOINT OF CARE TEST ENTER/EDIT ORDERABLESFinal Result * Bilateral diagnostic mammogram with tomosynthesis (06/29/2021)Anatomical RegionLateralityModalityBreastBilateralMammographySpecimen (Source)Anatomical Location / LateralityCollection Method / VolumeCollection TimeReceived Time Narrative 06/29/2021 12:00 AM EST PERFORMED AT [facility] LOCATION:[place] [address] Exam Date/Time: 06/29/2021 13:01 EST Reason for [...] IS VERY IMPORTANT TO YOUR HEALTH. ??THE [employer] GUIDELINES RECOMMEND THAT WOMEN 40 [...] REPORT Dictated: ??06/29/2021 3:16 pm ? Linda Houston. Signed (Electronic Signature): ??06/29/2021 3:16 pm Signed by: ??Linda Hernandes Transcribed by: ??DP ? Technologist: ??[facility] Assessment: BI-RADS Category ??5-Highly suggestive of malignancy appropriate action should be taken Recommendation: ??Highly suggestive of malignancy - take appropriate action Procedure Note CONVERSION, GENERIC - 10/26/2022 PERFORMED AT [facility] LOCATION:[place] [address] Exam Date/Time: 06/29/2021 13:01 EST Reason for [...] IS VERY IMPORTANT TO YOUR HEALTH. THE [employer] GUIDELINES RECOMMEND THAT WOMEN 40 [...] by: Linda Hernandes Transcribed by: TOLU Technologist: [facility] Assessment: BI-RADS Category 5-Highly suggestive of malignancy appropriate action should be taken Recommendation: Highly suggestive of malignancy - take appropriateaction Authorizing ProviderResult TypeResult StatusPeChoudhary BI PROCEDURES Final Result * Colonoscopy (04/10/2020 12:00 PM EST)Anatomical RegionLateralityModality EndoscopySpecimen (Source)Anatomical Location / LateralityCollection Method / VolumeCollection TimeReceived Time04/10/2020 12:00 PM EST Narrative 04/10/2020 12:00 PM EST PERFORMED AT [facility] LOCATION:[id number] Refused Procedure Note CONVERSION, GENERIC - 09/05/2022 PERFORMED AT [facility] LOCATION:[id number] Refused Authorizing ProviderResult TypeResult StatusPePatel MDENDOSCOPY PROCEDURE ORDERABLESFinal Result from Last 3 Months or Most Recently Relevant to Health [place] [address] Care Teams Team MemberRelationshipSpecialtyStart DateEnd Date Unallocated, Noms MD [facility] [address] [place] [address] PCP - GeneralFamily Medicine08/14/23
--- OUTSIDE RECORDS SUMMARY | 2025-03-27 10:35 | XMS_ITS | CCD ---
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 Name Role Phone Rickey Askew Primary Care Physician Eva Beard Unavailable Unavailable Rickey Askew MD Unavailable Rickey Askew MD Primary Care Provider DO Senthil Caldera II Attending Provider 1( [phone] MD Mary Rodriguez Primary Care Provider [phone] MD Mary Rodriguez Primary Care Provider DO Senthil Caldera II Attending Provider 1( [phone] Senthil Caldera Attending Unavailable Verenice, Senthil Attending Unavailable Senthil Caldera Attending Unavailable Senthil Caldera Admitting Unavailable Nohemy PEDIATRIC DIETICIAN-JOHNNA [place] Attending UnavailSammy Orosco Attending Unavailable Sammy [...] Provider Verenice [facility], DO Ndiaye Attending Provider David Calderaothy Referring Unavailable Adamowicz, Senthil Attending Unavailable Unallocated MD, Noms Provider Primary Care Provi ramone Unallocated MD, Noms Provider Primary Care Provi ramone Mary Rodriguez MD Primary Care Provider [facility] DO, Senthil Attending Provider Mary Rodriguez MD Primary Care Provider [facility] DO, Senthil Attending Provider Adamowicz [facility], Senthil Admitting [facility]avai lable [facility] Senthil Attending Unavai lable [place], [facility] Un[facility] Ad[facility]avai lable [facility] Senthil Attending Unavai lable Jennifer, [facility] Un[facility] S[facility]il Admitting Unavai lable Adamowicz [facility], Senthil Attending Unavai lable Jennifer, [facility] Un[facility] Senthil Attending Unavai lable [facility] Senthil Admitting Unavai lable [place], [facility] Unavailable Adamowicz, Senthil Attending Unavailable [...] (1 source)Bee/Wasp/Ant venom; Translations: [Bee Stings]Substance [facility]St[facility] RepositoryPenicillins (antibiotic) (1 source)Penicillins; Translations: [penicillins]Drug AllergySt. [facility] RepositorySulfonamides (antibiotic) (1 source)Sulfonamides (Antibiotic); Translations: [sulfa drugs]Drug Allergy [facility] (20 sources)Bee/Wasp/Ant venom; Translations: [Bee Stings]Drug allergyDyspnea (finding)[facility] (20 sources)Penicillins; Translations: [penicillins]Drug btetzle94-37-5378 Dyspnea (finding), Shortness of breath, UnknownM[facility] (20 sources)Sulfonamides (Antibiotic); Translations: [sulfa drugs]Drug allergy Dyspnea (finding)[facility] (11 sources)Penicillin GDrug Twrlueg34-49-2893RDQN [facility] (11 sources)Sulfonamides (Antibiotic)Drug Lqaedoa51-73-3831Kjccmukpn of breath [facility] Medications Current Medications MedicationDrug Class(es)DatesSig (Normalized)Sig (Original)acetaminophen 500 mg oral tablet (20 sources)Start: 61-43-4265bjll 2 tablets by mouth every six hours acetaminophen 500 mg Tab 1,000 mg = 2 tab(s), Oral, q6hr, Refills(s) 0 Start Date: 11/13/22 Status: Ordered Repeat number: 1anastrozole 1 mg oral tablet (20 sources)Aromatase InhibitorStart: 75-25-2144uzwg 1 tablet by mouth once dailyanastrozole 1 mg Tab 1 mg = 1 tab(s), Oral, Daily, # 30 tab(s), Refills(s) 11, called to pharmacy (Rx) Start Date: 10/29/22 Status: Ordered Quantity: 30.0 Unit: tab(s) Repeat number: 12busPIRone hydrochloride 5 mg oral tablet (17 sources)Start: 17-32-9516ellg 1 tablet by mouth twice dailybusPIRone 5 mg Tab 5 mg = 1 tab(s), Oral, BID, # 270 tab(s), Refills(s) 0 Start Date: 05/01/23 Status: Ordered Quantity: 270.0 Unit: tab(s) Repeat number: 1cephalexin 500 mg oral capsule (2 sources)Cephalosporin AntibacterialStart: 12-19-2022 End: 11-59-7448fsew 1 capsule by mouth four times dailyKeflex 500 mg Cap 500 mg = 1 cap(s), Oral, QID, X 7 day(s), # 28 cap(s), Refills(s) 0, Pharmacy: [facility], 167.6, cm, 12/19/22 20:43:00 EDT, Height/Length Dosing, 87.1, kg, 12/20/2319:43:00 EDT, Weight Dosing Start Date: 12/19/22 Stop Date: 12/26/22 Status: Orderedcholecalciferol 0.05 mg oral tablet (11 sources)Vitamin DStart: 95-15-8163wgec 1 tablet by mouth in the morning cholecalciferol (Vitamin D-3) 50 MCG (1999 UT) tablet Take 2,000 Units by mouth in the morning. 12/14/2022 ActiveCinnamon Preparation (19 sources)Non-Standardized Food Allergenic ExtractStart: 10-26-2998Svefjmpc 1,000 mg, Daily, Refills(s) 0 Start Date: 09/07/21 Status: Ordereddocusate sodium 100 mg oral tablet (17 sources)Start: 91-00-5932rfnp 100 mg by mouth twice dailyColace 100 mg, Oral, BID, Refills(s) 0 Start Date: 05/01/23 Status: Ordered Repeat number: 1 exemestane 25 mg oral tablet (15 sources)Aromatase InhibitorStart: 69-29-8893oghe 1 tablet by mouth once dailyexemestane 25 mg Tab 25 mg = 1 tab(s), Oral, Daily, # 30 tab(s), Refills(s) 11, Pharmacy: [facility], 167.6, cm, 06/12/23 11:02:00 EST, Height/Length Dosing, 90.7, kg, 06/12/23 11:02:00 EST, Weight Dosing Start Date: 06/13/23 Status: Ordered Quantity: 30.0 Unit: tab(s) Repeat number: 12 I ndications: Malignant neoplasm of unspecified site of unspecified female breast; ferrous sulfate 325 mg oral tablet (14 sources)Start: 47-36-0374lkul 1 tablet by mouth once dailyferrous sulfate 325 mg Tab 325 mg = 1 tab(s), Oral, Daily, Refills(s) 0 Start Date: 01/09/24 Status:Ordered Repeat number: 1Fish Oils (20 sources)Start: 55-82-7784gqob 1 capsule by mouth once dailyFish Oil 1000 mg oral capsule 1,000 mg = 1 cap(s), Oral, Daily, Refills(s) 0 Start Date: 07/03/21 Status: Orderedfurosemide 40 mg oral tablet (20 sources)Loop DiureticStart: 45-42-1716wtdf 1 tablet by mouth once daily furosemide 40 mg Tab 40 mg = 1 tab(s), Oral, Daily, Refills(s) 0 Start Date: 07/03/21 Status: OrderedKisqali (200 mg daily dose) (20 sources)Start: 87-76-8769Rirywot (200 mg daily dose) 200 mg, TID, Refills(s) 0 Start Date: 09/07/21 Status: OrderedClaritin (17 sources)Start: 86-85-3125Uwosgoov 10 mg, Refills(s) 0 Start Date: 05/01/23 Status: Ordered Repeat number: 1Start: 64-31-6592Dgxdjesn 10 mg, Refills(s) 0 Start Date: 05/01/23 Status: Orderedmelatonin 5 mg oral tablet (20 sources)Start: 60-79-9462nnjv 1 tablet by mouth once daily at bedtime as neededmelatonin 5 mg oral tablet 5 mg = 1 tab(s), Oral, Once a day (at bedtime), PRN for insomnia, # 60 tab(s), Refills(s) 0 Start Date: 11/13/22 Status: Ordered Quantity: 60.0 Unit: tab(s) Repeat number: 1ondansetron 8 mg oral tablet (20 sources)Serotonin-3 Receptor AntagonistStart: 17-40-9405xdaj 1 tablet by mouth every eight hours as needed for nauseaondansetron 8 mg Tab 8 mg, Oral, q8hr, PRN Nausea, # 30 tab(s), Refills(s) 3, Pharmacy: [facility], 162.5, cm, 08/10/21 12:38:00 EDT, Height/Length Dosing, 96.5, kg, 08/10/21 12:38:00EDT, Weight Dosing Start Date: 08/24/21 Status: OrderedoxyCODONE hydrochloride 5 mg oral tablet (12 sources)Opioid AgonistStart: 12-17-2022 End: 21-17-9838mwxy 1 tablet by mouth every six hours as needed for pain oxyCODONE (Roxicodone) 5 MG immediate release tablet Take 5 mg by mouth every 6 (six) hours if needed for severe pain. 12/17/2022 ActiveMiralax (17 sources)Osmotic LaxativeStart: 95-69-2609uknz 17 g by mouth once daily MiraLax 17 gm, Oral, Daily, Refill(s) 0 Start Date: 05/01/23 Status: Ordered Repeat number: 1Start: 52-43-1080cfei 17 g by mouth once dailyMiraLax 17 gm, Oral, Daily, Refill(s) 0 Start Date: 05/01/23 Status: Orderedsimvastatin 40 mg oral tablet (20 sources)HMG-CoA Reductase InhibitorStart: 63-98-1539qpvb 1 tablet by mouth once daily at bedtimesimvastatin 40 mg Tab 40 mg = 1 tab(s), Oral, Once a day (at bedtime), Refills(s) 0 Start Date: 07/03/21 Status: Ordered Repeat number: 1 traMADol hydrochloride 50 mg oral tablet (17 sources)Opioid AgonistStart: 86-44-5354bziv 50 mg by mouth every six hours tramadol 50 mg, Oral, q6hr, Refills(s) 0 Start Date: 05/01/23 Status: Ordered Repeat number: 1vitamin b12 1 mg oral tablet (11 sources)Vitamin E39Wyrxe: 24-02-9557vesh 1 tablet by mouth in the morning cyanocobalamin (Vitamin B-12) 1000 MCG tablet Take 1,000 mcg by mouth in the morning. 09/27/2022 ActiveVitamin B12 1000 mcg Tab (20 sources)Start: 53-23-2069jogc 1 tablet by mouth once dailyVitamin B12 1000 mcg Tab 1,000 mcg = 1 tab(s), Oral, Daily, # 30 tab(s), Refills(s) 11, Pharmacy: [facility], 162, cm, 09/08/22 15:14:00 EDT, Height/Length Dosing, 96.4, kg, 09/27/22 13:43:00 EDT, Weight Dosing Start Date: 09/27/22 Status: Ordered Quantity: 30.0 Unit: tab(s) Repeat number: 12 Indications: Malignant neoplasm of unspecified site of unspecified female breast;Start: 87-11-1594omwe 1 tablet by mouth once dailyVitamin B12 1000 mcg Tab 1,000 mcg = 1 tab(s), Oral, Daily, # 30 tab(s), Refills(s) 11, Pharmacy: [facility], 162, cm, 09/08/22 15:14:00 EDT, Height/Length Dosing, 96.4, kg, 09/27/22 13:43:00 EDT, Weight Dosing Start Date: 09/27/22 Status: Ordered Quantity: 30.0 Unit: tab(s) Repeat number: 12 Indication: Malignant neoplasm of unspecified site of unspecified female breastStart: 03-49-8945enxk 1 tablet by mouth once dailyVitamin B12 1000 mcg Tab 1,000 mcg = 1 tab(s), Oral, Daily, # 30 tab(s), Refills(s) 11, Pharmacy: [facility], 162, cm, 09/08/22 15:14:00 EDT, Height/Length Dosing, 96.4, kg, 09/27/22 13:43:00 EDT, Weight Dosing Start Date: 09/27/22 Status: OrderedVitamin D3 2000 intl units oral tablet (20 sources)Start: 43-34-7445dvgg 1 tablet by mouth once dailyVitamin D3 2000 intl units oral tablet 50 mcg = 1 tab(s), Oral, Daily, # 90 tab(s), Refills(s) 4, Pharmacy: [facility], 167, cm, 11/01/22 20:02:00 EDT, Height/Length Dosing, 90.3, kg,11/01/22 20:02:00 EDT, Weight Dosing Start Date: 12/14/22 Status: Ordered Quantity: 90.0 Unit: tab(s) Repeat number: 5Start: 58-59-2960gtor 1 tablet by mouth once dailyVitamin D3 2000 intl units oral tablet 50 mcg = 1 tab(s), Oral, Daily, # 90 tab(s), Refills(s) 4, Pharmacy: [facility], 167, cm, 11/01/22 20:02:00 EDT, Height/Length Dosing, 90.3, kg,11/01/22 20:02:00 EDT, Weight Dosing Start Date: 12/14/22 Status: Ordered Completed/Discontinued Medications MedicationDrug Class(es)DatesSig (Normalized)Sig (Original)ergocalciferol 1.25 mg oral capsule (2 sources)Provitamin D2 CompoundStart: 21-97-2540wlqd 1 capsule by mouth once dailyergocalciferol 50,000 intl units Cap 50,000 International_Unit = 1 cap(s), Oral, q7day, x 8 wks then 2000 units daily, # 7 cap(s), Refills(s) 0, Pharmacy: [facility], 167, cm, 11/01/22 20:02:00 EDT, Height/Length Dosing, 90.3, kg, 11/01/22 20:02:00 EDT, Weight Dosing Start Date: 11/04/22 Status: OrderedStart: 80-18-4756yelpyrvojfxfre 50,000 intl units Cap 50,000 International_Unit = 1 cap(s), Oral, q7day, # 7 cap(s),Refills(s) 0, Pharmacy: [facility], 167, cm, 11/01/22 20:02:00 EDT, Height/Length Do sing, 90.3, kg, 11/01/22 20:02:00 EDT, Weight Dosing Start Date: 11/04/22 Status: OrderedInsulin Lispro (3 sources)Insulin AnalogStart: 12-23-2022 End: 35-66-3498Vialtjn Lispro Sliding Scale 0-10 Unit(s), Injection-Insulin, SubCutaneous, Start date 12/23/22 7:30:00 EDT Start Date: 12/23/22 Stop Date: 12/23/22 Status: CompletedStart: 12-22-2022 End: 64-25-4773Onczgqq Lispro Sliding Scale 0-10 Unit(s), Injection-Insulin, SubCutaneous, Start date 12/22/22 16:30:00 EDT Start Date: 12/22/22 Stop Date: 12/22/22 Status: CompletedStart: 12-22-2022 End: 45-82-8119Ubbpbvr Lispro Sliding Scale 0-10 Unit(s), Injection-Insulin, SubCutaneous, Start date 12/22/22 11:30:00 EDT Start Date: 12/22/22 Stop Date: 12/22/22 Status: Completedlisinopril 10 mg oral tablet (20 sources)Angiotensin Converting Enzyme InhibitorStart: 12-23-2022 End: 12-57-2269cwvbwrvuyt 10 mg Tab 10 mg = 1 tab(s), Tab, Oral, Start date 12/23/22 9:00:00 EDT, 12/20/22 20:32:00 EDT Start Date: 12/23/22 Stop Date: 12/23/22 Status: CompletedStart: 11-04-2022 End: 00-34-4763mvvfsociha 10 mg Tab 10 mg = 1 tab(s), Tab, Oral, Start date 11/04/22 9:00:00 EDT, 11/02/22 12:05:00 EDT Start Date: 11/04/22 Stop Date: 11/04/22 Status: CompletedStart: 42-20-1873gubv 1 tablet by mouth once daily lisinopril 10 mg Tab 10 mg = 1 tab(s), Oral, Daily, Refills(s) 0 Start Date: 07/18/21 Status: Ordered Repeat number: 1Start: 02-39-6531gvde 1 tablet by mouth once dailylisinopril 5 mg Tab 5 mg = 1 tab(s), Oral, Daily, Refills(s) 0 Start Date: 07/03/21 Status: Ordered{63 (ribociclib 200 MG Oral Tablet [Kisqali]) } Pack [Kisqali 600 MG Daily Dose Carton] (20 sources)Start: 05-66-8184Afiildh (600 mg daily dose) oral tablet 600 mg = 3 tab(s), Oral, Daily, take for 21 days followed by a 7 day rest period this is an increase in dose. pt was taking 400 mg but will now be taking 600 mg daily, # 63 tab(s), Refills(s) 12, Pharmacy: [id number], 167.6, cm, 01/09/24 10:45:00 EDT, Height/Length Dosing, 99, kg, 01/09/24 10:45:00 EDT, Weight Dosing Start Date: 01/09/24 Status: Ordered Quantity: 63.0 Unit: tab(s) Repeat number: 13 Indications: Malignant neoplasm of unspecified site of unspecified female breast;Start: 40-28-7467Gixwojf (600 mg daily dose) oral tablet 600 mg = 3 tab(s), Oral, Daily, take for 21 days followed by a 7 day rest period this is an increase in dose. pt was taking 400 mg but will now be taking 600 mg daily, # 63 tab(s), Refills(s) 12, [facility]: [id number], 167.6, cm, 01/09/24 10:45:00 EDT, Height/Length Dosing, 99, kg, 01/09/24 10:45:00 EDT, Weight Dosing Start Date: 01/09/24 Status: Ordered Quantity: 63.0 Unit: tab(s) Repeat number: 13 Indication: Malignant neoplasm of unspecified site of unspecified female breastStart: 63-78-1461Bjyxhlw (600 mg daily dose) oral tablet 600 mg = 3 tab(s), Oral, Daily, take for 21 days followed by a 7 day rest period this is an increase in dose. pt was taking 400 mg but will now be taking 600 mg daily, # 63 tab(s), Refills(s) 12, [id number], 167.6, cm, 01/09/24 10:45:00 EDT, Height/Length Dosing, 99, kg, 01/09/24 10:45:00 EDT, Weight Dosing Start Date: 01/09/24 Status: OrderedStart: 12-03-2023 End: 51-95-4210Myfoeto (400 mg daily dose) oral tablet 400 mg = 2 tab(s), Oral, Daily, 21 DAYS ON THEN 7 DAYS OFF 400 MG DAILY DOSE, X 21 day(s), # 42 tab(s), Refills(s) 12, Pharmacy: [facility], 167.6,cm, 09/12/23 10:31:00 EDT, Height/Length Dosing, 90.7, kg, 09/12/23 10:31:00 EDT, Weight Dosing Start Date: 12/03/23 Stop Date: 09/01/24 Status: Ordered Quantity: 42.0 Unit: tab(s) Repeat number: 13 Indication: Malignant neoplasm of unspecified site of unspecified female breastStart: 12-03-2023 End: 20-19-6919Qhnjzjw (400 mg daily dose) oral tablet 400 mg = 2 tab(s), Oral, Daily, 21 DAYS ON THEN 7 DAYS OFF 400 MG DAILY DOSE, X 21 day(s), # 42 tab(s), Refills(s) 12, Pharmacy: [facility], 167.6,cm, 09/12/23 10:31:00 EDT, Height/Length Dosing, 90.7, kg, 09/12/23 10:31:00 EDT, Weight Dosing Start Date: 12/03/23 Stop Date: 09/01/24 Status: OrderedStart: 05-30-2023 End: 04-61-8281Jbeavfn (400 mg daily dose) oral tablet 400 mg = 2 tab(s), Oral, Daily, 21 DAYS ON THEN 7 DAYS OFF 400 MG DAILY DOSE, X 21 day(s), # 42 tab(s), Refills(s) 12, Pharmacy: [id number], 167.6, cm, 05/01/23 14:05:00 EST, Height/Length Dosing, 86.7, kg, 12/20/22 15:11:00 EDT, Weight Dosing Start Date: 05/30/23 Stop Date: 02/27/24 Status: OrderedStart: 42-98-6473ildxbcliaa 200 mg dose (Kisqali, 200 MG Dose,) tablet chemo therapy pack See Instructions, 2 tab(s)take for 21 days, withhold for 7 days, then repeat cycle. 11 REFILLS, # 42 tab(s), Refills(s) 1, called to pharmacy (Rx) 05/09/2022 ActiveStart: 57-46-3128Ekmdqfk (400 mg daily dose) oral tablet See Instructions, 1 tab by mouth for 21 days, withhold for 7 days then repeat cycle., # 21 tab(s), Refills(s) 1, [facility], 162.5,cm, 03/28/22 14:05:00 EST, Height/Length Dosing, 96.6, kg, 03/28/22 14:05:00 EST, Weight Do... Start Date: 03/29/22 Status: OrderedStart: 33-04-6692litqvibuzt 200 mg oral tablet See Instructions, take 1 tab(s) po days 1-21 take for 21 days, withhold for 7 days, then repeat cycle, # 21 tab(s), Refills(s) 11, called to pharmacy (Rx) Start Date: 03/14/22 Status: Ordered Problems Active Problems Problem ClassificationProblemDateDocumented DateEpisodic/ChronicAllergic reactions (1 source)Urticaria; Translations: [Other urticaria]Onset: 62-56-5705Hjoszvcu Cancer of breast (20 sources)Malignant neoplasm of upper-outer quadrant of right female breast; Translations: [Malignant neoplasm of upper-outer quadrant of female breast] Onset: 68-83-8057ZdrrmcgVoeugw of breast (20 sources)Personal history of malignant neoplasm of breast; Translations: [History of malignant neoplasm of breast]Onset: 36-04-9307SpkdrskqZfefkd of colon (12 sources)Malignant tumor of colon; Translations: [Malignant neoplasm of colon, unspecified]Onset: 62-96-1495XovuppiVtzqynecup and other anemia (1 source)Anemia; Translations: [Anemia, unspecified]Onset: 52-33-4030Dutlzbsz Delirium, dementia, and amnestic and other cognitive disorders (20 sources)Age-related cognitive decline; Translations: [Age-related cognitive decline]Onset: 98-66-0033ZxeerfbSuilbyxo mellitus without complication (20 sources)Diabetes mellitus; Translations: [Type 2 diabetes mellitus without complication]Onset: 485070-75-2917QnpshgxQiycyhewk of lipid metabolism (20 sources)Hypercholesterolemia; Translations: [Pure hypercholesterolemia] Onset: 300828-91-2420KxkabwhX Codes: Fall (1 source)Fall; Translations: [Unspecified fall, initial encounter]Onset: 61-88-5486OguzdtbdYrojljcgi hypertension (20 sources)Hypertensive disorder; Translations: [Essential hypertension]Onset: 992776-99-5132AklbrgqHiwis and electrolyte disorders (1 source)Dehydration; Translations: [Dehydration]Onset: 04-29-6722Sfpdguxc Malaise and fatigue (2 sources)Asthenia; Translations: [Weakness]Onset: 48-96-1107Hskessro Nutritional deficiencies (20 sources)Vitamin D deficiency; Translations: [Vitamin D deficiency, unspecified]Onset: 76-65-7147LmvdeqdPsqxm aftercare (1 source)Long-term current use of drug therapy; Translations: [Other assisted (current) drug therapy]Onset: 95-59-5738VedxjzutDpypp connective tissue disease (2 sources)Recurrent falls ; Translations: [Repeated falls]Onset: 11-02-2022 EpisodicOther fractures (20 sources)Multiple pelvic fractures; Translations: [Multiple fractures of pelvis with stable disruption of pelvic ring, subsequent encounter for fracture with routine healing]Onset: 43-44-2863PknmbfobVetjr fractures (1 source)Closed fracture lumbar vertebra, wedge ; Translations: [Wedge compression fracture of unspecified lumbar vertebra, initial encounter for closed fracture]Onset: 52-07-8749XffrdfaqPaalr nutritional; endocrine; and metabolic disorders (20 sources)Body mass index 30+ - obesity; Translations: [Body mass index (BMI) 36.0-36.9, adult]Onset: 124082-88-5579RntvxdkGmhlc nutritional; endocrine; and metabolic disorders (11 sources)Obese class I; Translations: [Obesity, unspecified]Onset: 09-13-2021 60-10-2967JzvbrcuCkdel nutritional; endocrine; and metabolic disorders (11 sources)Obesity; Translations: [Obesity, unspecified]Onset: 10-24-2022 27-20-4351ZoazvgeLnpgpednhhiv fracture (20 sources)H/O: fragility fracture; Translations: [Personal history of (healed) osteoporosis fracture]Onset: 93-88-6568FfqfrzbrFkaeplltt malignancies (13 sources)Secondary malignant neoplasm of bone; Translations: [Secondary malignant neoplasm of bone]Onset: 04-98-2954Itxzpmv Past or Other Problems Problem ClassificationProblemDateDocumented DateEpisodic/ChronicLymphadenitis (20 sources)Axillary lymphadenopathy; Translations: [Localized enlarged lymph nodes]Onset: 913871-85-5073NwlcnolpAdzx disorders (11 sources)Mood disordersOnset: 245758-83-8318Xsnghja (11 sources)Onychomycosis; Translations: [Tinea unguium]Onset: 09-19-2022 42-73-2101GsmiiwjrYyzmdjtjmnxg breast conditions (20 sources)Lump of upper outer quadrant of breast; Translations: [Lump in upper outer quadrant of right breast]Onset: 461739-41-9458CzpotociGsruk connective tissue disease (11 sources)Pain of toe of left foot; Translations: [Pain in left toe(s)]Onset: 934064-32-3236OfncwjueMmwys connective tissue disease (11 sources)Pain of toe of right foot; Translations: [Pain in right toe(s)] Onset: 431364-84-8773JdgleipbJqqcenuu codes; unclassified (20 sources)Edema; Translations: [Edema, unspecified]Onset: EpisodicResidual codes; unclassified (11 sources)H/O: high risk medication; Translations: [Personal history of other drug therapy]Onset: 846322-01-7261VdtyscisJsphxbv tract infections (3 sources)Urinary tract infectious disease; Translations: [Urinary tract infection, site not specified]Onset: 82-95-8697Pqtpdpil Results Test NameValueInterpretationReference RangeFacilityALL POTASSIUMon 02-24-2025 Interpretation and review of laboratory resultsAbnormalNOMS HealthcarePotassium [Moles/Vol]5.3 mmol/LHigh3.5 - 5.1 mmol/LNOMS HealthcareCLINISYNCNOMS Healthcare ALL POTASSIUMon 87-31-1494Fnfiwlykc [Moles/Vol]4.9 mmol/L3.5 - 5.1 mmol/LNOMS HealthcareSELECT [facility] DROP OFF CLINISYNCNOMS HealthcareGLUCOSE POCT GLUCOMETERSon 35-64-0969Hksabmu [Mass/Vol] 127 mg/dLLake Regional Health SystemComment on above:Random Glucose Reference Range is dependent on time and content of last meal. Glucose of more than 200 mg/dL in a nonstressed, ambulatory subject supports the diagnosis of Diabetes Mellitus. [facility] Regional Health SystemGlucose Glucometer (dC) [Mass/Vol]Ordered By: Senthil Caldera on 49-28-3841Auisjkq [Mass/Vol]Capillary blood glucose measurement by glucometer (mass/volume)[facility]'S HospitalComment on above:Random Glucose Reference Range is dependent on time and content of last meal. Glucose of more than 200 mg/dL in a nonstressed, ambulatory subject supports the diagnosis of Diabetes Mellitus.Glucose Poct Glucometerson 61-41-7384Mvuozww [Mass/Vol]127 mg/dLNoWatauga Medical Center Physician GroupComment on above:Result Comment: Random Glucose Reference Range is dependent on time and content of last meal. Glucose of more than 200 mg/dL in a nonstressed, ambulatory subject supports the diagnosis of Diabetes Mellitus. PERFORMED BY: [place] [address] PATHOLOGIST [facility] KIKI URIBE M.D.Performed By: #### GLULS #### Point of Care testing ,PET tumor subq tx strat sb-mton 55-81-2174KUF tumor subq tx strat sb-mt [facility] [place] [address] Nuclear Medicine Report Signed Patient: Marlen Staley MR#: [id number] 65 : 1950 Acct:[id number] Age/Sex: 74 / F ADM Date: 09/30/24 Loc: Room: Type: [facility] Attending Dr: Senthil Caldera - [facility] [place] DO Copies to: Fady Muir Jr, DO [...] Jr., D.OAspen 09/30/2024 11:48 AM Dictation Location: [place] [address] Transcribed By: [facility] 09/30/24 1148 Dictated By: Fady Muir Jr, DO 09/30/24 1057 Signed By: 09/30/24 1148[facility] Physician GroupGLUCOSE POCT GLUCOMETERSon 71-15-2787ANYMLake Regional Health SystemGlucose Glucometer ([facility]) [Mass/Vol]Ordered By: Senthil Caldear on 40-49-6780Osyhwwk [Mass/Vol]Capillary blood glucose measurement by glucometer (mass/volume)[facility]'S HospitalComment on above: Random Glucose Reference Range is dependent on time and content of last meal. Glucose of more than 200 mg/dL in a nonstressed, ambulatory subject supports the diagnosis of Diabetes Mellitus.Glucose Poct Glucometerson 29-64-2859Vwgsajf [Mass/Vol]121 mg/dLNoAllegheny Health NetworkComment on above:Random Glucose Reference Range is dependent [...] the diagnosis of Diabetes Mellitus. PERFORMED BY: [place] [address] PATHOLOGIST [facility] GAGE M.D.Performed By: #### GLULS #### Point of Care testing ,PET tumor subq tx strat sb-mton 52-03-2579EVV tumor subq tx strat sb-mt [facility] [place] [address] [place] [address] Nuclear Medicine Report Signed Patient: Marlen Staley MR#: [id number] 65 : 1950 Acct:[id number] Age/Sex: 74 / F ADM Date: 08/17/24 Loc: Room: Type: [facility] Attending Dr: Senthil Caldera - [facility] DO Copies to: Fady Muir Jr, DO [...] Jr., D.OAspen 08/17/2024 3:15 PM Dictation Location: [facility]--22 Transcribed By: [facility] 08/17/24 1515 Dictated By: Fady Muir Jr, DO 08/17/24 1455 Signed By: 08/17/24 1515NoWatauga Medical Center Physician GroupGLUCOSE POCT GLUCOMETERSon 12-52-4616Ryutzwc [Mass/Vol]182 mg/dLLake Regional Health SystemComment on above:Random Glucose Reference Range is dependent on time and content of last meal. Glucose of more than 200 mg/dL in a nonstressed, ambulatory subject supports the diagnosis of Diabetes Mellitus. [facility] Regional Health SystemGlucose Glucometer ([facility]) [Mass/Vol]Ordered By: Senthil Caldera on 46-34-7517Fiutzme [Mass/Vol]Capillary blood glucose measurement by glucometer (mass/volume)[facility] Children'S HospitalComment on above:Random Glucose Reference Range is dependent on time and content of last meal. Glucose of more than 200 mg/dL in a nonstressed, ambulatory subject supports the diagnosis of Diabetes Mellitus.Glucose Poct Glucometerson 72-48-3348Pfrkwuj [Mass/Vol]182 mg/dLNoWatauga Medical Center Physician GroupComment on above:Result Comment: Random Glucose Reference Range is dependent on time and content of last meal. Glucose of more than 200 mg/dL in a nonstressed, ambulatory subject supports the diagnosis of Diabetes Mellitus. PERFORMED BY: [place] [address] PATHOLOGIST [facility] GAGE M.D.Performed By: #### GLULS #### Point of Care testing ,PET tumor subq tx strat -mton 47-05-4040ADS tumor subq tx strat -[facility] [place] [address] Nuclear Medicine Report Signed Patient: Marlen Staley MR#: [id number] 65 : 1950 Acct:[id number] Age/Sex: 73 / F ADM Date: 04/29/24 Loc: Room: Type: [facility] Attending Dr: Senthil Caldera - [facility] DO Copies to: MD Senthil Guo DO [...] Carlos Guaman M.D.04/29/2024 4:17 PM Dictation Location: [place] [address] Transcribed By: [facility] 04/29/24 1617 Dictated By: Carlos Guaman MD 04/29/24 1607 Signed By: 04/29/24 1617[facility]ALL CBC WITH AUTO DIFFon 83-07-7414IUDJFUTTK ABSOLUTE AUTO0.1NOMS HealthcareBasophils/100 WBC (Bld)2.7 % High0.2 - 2.0 %NOMS HealthcareEosinophils/100 WBC (Bld)3.5 %0.9 - 7.0 %NOMS HealthcareErythrocyte distribution width (RBC) [Ratio]13.6 %11.0 - 15.0 %NOMRay County Memorial HospitalHematocrit (Bld) [Volume fraction]32.2 %Low36.0 - 48.0 %L[facility] Regional Health SystemHemoglobin (Bld) [Mass/Vol]10.3 g/dLLow12.0 - 16.0 g/dLLake Regional Health System IMMATURE GRANULOCYTES ABS AUTO0.03NOJefferson Memorial HospitalImmature granulocytes/100 WBC (Bld)0.7 %High0.0 - 0.5 %[facility] Health SystemInterpretation and review of laboratory resultsAbnormalNOJefferson Memorial HospitalLYMPHOCYTES ABSOLUTE AUTO1.4NOMS [facility] Lymphocytes/100 WBC (Bld)33.9 %20.5 - 60.0 %Select Specialty HospitalH (RBC) [Entitic mass]33.3 pg26.7 - 34.0 pgNOEllis Fischel Cancer CenterHC (RBC) [Mass/Vol]32.0 g/dL29.9 - 35.2 g/dLLake Regional Health SystemMCV (RBC) [Entitic vol]104.2 eNZwxh76.0 - 99.0 fLLake Regional Health SystemMONOCYTES ABSOLUTE AUTO0.3NOMS [facility] CenterMonocytes/100 WBC (Bld)6.2 % 1.7 - 12.0 %[facility] SystemNEUTROPHILS ABSOLUTE AUTO2.1NOMS [facility] Neutrophils/100 WBC (Bld)53.0 %43.0 - 75.0 %L[facility] Regional Health SystemPlatelet mean volume (Bld) [Entitic vol]9.3 fLLow9.5 - 13.5 fLLake Regional Health SystemTBH EO #0.1NOMS [facility] CenterTB [id number] [facility] RBC3.09LowNOMS [facility] WBC4.0NOJefferson Memorial HospitalCLINISYNCNCURAHEALTH [facility] [place] [facility] [place] HealthcareCapillary blood glucose measurement by glucometer (mass/volume)Ordered By: Senthil Caldera on 14-62-6803Iehkxlu [Mass/Vol]121 mg/dLCleveland Clinic Marymount HospitalComment on above: Random Glucose Reference Range [...] the diagnosis of Diabetes Mellitus. PERFORMED BY: [place] [address] PATHOLOGIST [facility] JO M.D.Performed By: #### GLULS #### Point of Care testing ,GLUCOSE POCT GLUCOMETERSon 64-55-2207Vxtcnhf [Mass/Vol]121 mg/dLLake Regional Health System Comment on above:Random Glucose Reference Range is dependent on time and content of last meal. Glucose of more than 200 mg/dL in a nonstressed, ambulatory subject supports the diagnosis of Diabetes Mellitus. NOMS HealthcarePET tumor subq tx strat sb-mton 25-84-0302JZW tumor subq tx strat sb-mtHARRISON [place] [place] [address] Nuclear Medicine Report Signed Patient: Marlen Staley MR#: [id number] 65 : 1950 Acct:[id number] Age/Sex: 73 / F ADM Date: 12/30/23 Loc: Room: Type: [facility] Attending Dr: Senthil Caldera - [facility] DO Copies to: Audi Rogers II, MD [...] Audi Rogers M.D.12/30/2023 2:23 PM Dictation Location: [place] [address] Transcribed By: [facility] 12/30/23 1423 Dictated By: Audi Rogers II, MD 12/30/23 1413 Signed By: 12/30/23 1423[facility] Physician GroupALL CBC WITH AUTO DIFFon 35-40-4339MOVJPQACT ABSOLUTE AUTO0.1NOMS HealthcareBasophils/100 WBC (Bld)2.8 % High0.2 [...] Healthcare Lymphocytes/100 WBC (Bld)32.5 %20.5 - 60.0 %Select Specialty HospitalH (RBC) [Entitic mass]34.1 npFeqt39.7 - 34.0 pgSelect Specialty HospitalHC (RBC) [Mass/Vol]33.0 g/dL29.9 - 35.2 g/dLSelect Specialty HospitalV (RBC) [Entitic vol]103.4 tIKcsv79.0 - 99.0 fLLake Regional Health SystemMONOCYTES ABSOLUTE AUTO0.3NODC HealthcareMonocytes/100 WBC (Bld)7.4 % 1.7 - 12.0 %[facility] SystemNEUTROPHILS ABSOLUTE AUTO2.0[facility] Neutrophils/100 WBC (Bld)51.6 %43.0 - 75.0 %L[facility] Health SystemPlatelet mean volume (Bld) [Entitic vol]9.3 fLLow9.5 - 13.5 fLLake Regional Health SystemTBH EO #0.2NOMS HealthcareTBH [id number] [facility] CenterTB RBC2.90LowNOJefferson Memorial HospitalTB WBC3.9Low [facility] Health SystemCLINISYNCNOMS HealthcareLaboratory Outside Office Copyon 24-30-6847Nsswjxgvbp Outside Office Copy [id number]#1.00TIFUC HealthLaboratory Outside Office Copy [id number]#1.00TIFUC HealthErythropoiet Lvlon 37-15-5667Zkhlukgwqibtdl (EPO) Qn16.8 mIU/mLInvalid Interpretation Code2.6-18.5Fisher [facility] Medical CenterComment on above:Result Comment: Gaby C$ cMoneyel DxI 800 Immunoassay System Values obtained with different assay methods or kits cannot be used interchangeably. Results cannot be interpreted as absolute evidence of the presence or absence of malignant disease. Performed at: [facility]Mc[facility] [address] [place] [address] [id number] PhD [place] AvelarPerformed By: #### [id number] #### [facility] Laboratory [address] [place], [place] [address]Tdajlmp Radiologyon 75-22-7716Qalhuim Radiology [id number]#1.00TIFFNormalSt. Charles HospitalCBC w/ Auto Diffon 60-98-4970Avhccbftm/100 WBC (Bld)1.1 %Normal0.0-2.0 [facility] Charles HospitalComment on above:Performed By: #### [id number] #### [facility] [address] [place] [address]Himogekxh/Leukocytes Auto (Bld) [Pure # fraction]0.0 E9/LNormal 0.0-0.2FCincinnati Children's Hospital Medical CenterComment on above:Performed By: #### [id number] #### [facility] [address] [place] [address] 339[address]Auiarhhjxpv (Bld) [#/Vol]0.2 E9/LNormal0.0-0.5FCincinnati Children's Hospital Medical CenterComment on above:Performed By: #### [id number] #### [facility] [address] [place] [address] 200[address]Ezqkspdvvei/100 WBC (Bld)4.3 %Normal0.0-8.0St. Charles HospitalComment on above:Performed By: #### [id number] #### [facility] [address] [place] [address]90[address]Gndpikaassi distribution width (RBC) [Ratio]14.6 %High10.9-14.2 St[facility] Charles HospitalComment on above:Performed By: #### [id number] #### [facility] [address] [place] [address]Pvrcadoqei (Bld) [Volume fraction]35.9 %Izeiog42.0-46.0St. Charles HospitalComment on above:Performed By: #### [id number] #### [facility] [address] [place] [address] 65[address]Cawglwsstj (Bld) [Mass/Vol]11.7 g/dLLow12.0-16.0St. Charles HospitalComment on above:Performed By: #### [id number] #### [facility] [address] [place] [address] 351[address]Voaxzwocpxn (Bld) [#/Vol]1.3 E9/LNormal1.0-4.0St. Charles HospitalComment on above:Performed By: #### [id number] #### [facility] [address] [place] [address] 612[address]Soubrkdrxme/100 WBC (Bld)29.3 %Gugsda68.0-50.0St. Charles HospitalComment on above:Performed By: #### [id number] #### [facility] [address] [place] [address] 68[address]UCP (RBC) [Entitic mass]33.9 yaXozycu80.0-34.0St. Charles HospitalComment on above:Performed By: #### [id number] #### [facility] [address] [place] [address] 08[address]MSOL (RBC) [Mass/Vol]32.7 g/oJGghxzh70.4-36.0St. Charles HospitalComment on above:Performed By: #### [id number] #### [facility] [address] [place] [address] 19346LIJ (RBC) [Entitic vol]103.7 xKZnbh71.0-100.0St. [facility] HospitalComment on above:Performed By: #### [id number] #### [facility] [address] [place] [address] 088[address]Vwlbtbpnx (Bld) [#/Vol]0.2 E9/LNormal0.2-1.0St. [facility] HospitalComment on above:Performed By: #### [id number] #### [facility] [address] [place] [address] 07[address]Lwhhxipsbla (Bld) [#/Vol]2.7 E9/LNormal2.0-7.5FCincinnati Children's Hospital Medical CenterComment on above:Performed By: #### [id number] #### [facility] [address] [place], [place] [address]Qieftusbwio/100 WBC (Bld)60.4 %Yqffqf03.0-75.0St. Charles HospitalComment on above:Performed By: #### [id number] #### [facility] [address] [place], [place] [address]Nthugnta mean volume (Bld) [Entitic vol]6.8 fLNormal6.4-10.8 [facility] [facility] HospitalComment on above:Performed By: #### [id number] #### [facility] [address] [place], [place] [address]Tptmunilc (Bld) [#/Vol]245.0 E9/MKswskh774.0-500.0St. Charles HospitalComment on above:Performed By: #### [id number] #### [facility] [address] [place] [address] 6[address]LRA (Bld) [#/Vol]3.5 E12/LLow4.3-5.9[facility] Comment on above:Performed By: #### [id number] #### [facility] [address] [place] [address]ULK corrected for nucl RBC Auto (Bld) [#/Vol]4.5 E9/LNormal 4.0-11.0St. Charles HospitalComment on above:Performed By: #### [id number] #### [facility] [address] [place] [address] 610[address]IAVTNSRSETxtgcst By: SYSTEM SYSTEM on 98-03-2317Jbzxdud [Mass/Vol]3.8 g/dLNormal3.3 - 5.0 gm/dLRemisol ChemAlbumin/Globulin [Mass ratio] 1.2 {ratio}Normal1.1 - 2.2Remisol ChemALP [Catalytic activity/Vol]119 [iU]/dHigh 21 - 98 Int._Unit/LRemisol ChemALT No additional P-5'-P [Catalytic activity/Vol] 11 [iU]/dNormal6 - 46 Int._Unit/LRemisol ChemAnion gap [Moles/Vol]13 mmol/L Normal6 - 16 mEq/LRemisol ChemAST [Catalytic activity/Vol]12 [iU]/dNormal5 - 43 Int._Unit/LRemisol ChemBilirubin [Mass/Vol]0.3 mg/dLNormal0.0 - 1.1 mg/dLRemisol ChemCalcium [Mass/Vol]9.1 mg/dLNormal8.9 - 11.1 mg/dLRemisol ChemChloride [Moles/Vol]111 mmol/GMrfgpd242 - 111 mmol/LRemisol ChemCO2 [Moles/Vol]22 mmol/L Dqlukf42 - 31 mmol/LRemisol ChemCobalamin (Vitamin B12) [Mass/Vol]524 pg/mL Gceecr35 - 1500 pg/mLRemisol ChemCreatinine [Mass/Vol]1.9 mg/dLHigh0.5 - 1.3 mg/dLRemisol BuumiWFL08 mL/min/1.73 m2Low>=59mL/min/1.73 i0Emymwyt ChemFerritin [Mass/Vol]193 ng/yCOmijmw96 - 307 ng/mLRemisol ChemFolate [Mass/Vol]ng/mLNormal >=6.7ng/mLRemisol ChemGlobulin (S) [Mass/Vol]3.1 g/dLNormal1.4 - 4.0 gm/dL Remisol ChemGlucose [Mass/Vol]197 mg/vJIhyvai76 - 199 mg/dLRemisol ChemIron [Mass/Vol]81 ug/hCMldrik05 - 153 mcg/dLRemisol ChemIron binding capacity [Mass/Vol]277 ug/hTQgvyiw158 - 400 mcg/dLRemisol ChemIron saturation [Mass fraction]29 %Xnhjbh92 - 50 %Remisol ChemPotassium [Moles/Vol]4.8 mmol/LNormal3.5 - 5.3 mmol/LRemisol ChemProtein [Mass/Vol]6.9 g/dLNormal6.0 - 7.8 gm/dLRemisol ChemSodium [Moles/Vol]141 mmol/DAbyasa238 - 145 mmol/LRemisol ChemTransferrin [Mass/Vol]198 mg/mJPqr416 - 370 mg/dLRemisol ChemUrea nitrogen [Mass/Vol]44 mg/dLHigh5 - 21 mg/dLRemisol ChemUrea nitrogen/Creatinine [Mass ratio]23 mg/mg High10 - 20Remisol ChemCMPon 52-72-4551Yqukqgm [Mass/Vol]3.8 g/dLNormal3.3-5.0 [facility] [facility] HospitalComment on above:Performed By: #### [id number] #### [facility] [address] [place], [place] [address]Izbaifi/Globulin (S) [Mass conc ratio]1.5Smhoog4.1-2.2FCincinnati Children's Hospital Medical CenterComment on above:Performed By: #### [id number] #### [facility] [address] [place], [place] [address]JPG [Catalytic activity/Vol]119 Int._Unit/PEqpq29-29QoxjhuSt. Charles HospitalComment on above:Performed By: #### [id number] #### [facility] [address] [place], [place] [address]HFP No additional P-5'-P [Catalytic activity/Vol]11 Int._Unit/L Normal6-46St. Charles HospitalComment on above:Performed By: #### [id number] #### [facility] [address] [place] [address]Eydcp gap [Moles/Vol]13 mmol/LNormal6-16St. Charles HospitalComment on above:Performed By: #### [id number] #### [facility] [address] [place] [address]83[address]CPC [Catalytic activity/Vol]12 Int._Unit/LNormal5-43St. Charles HospitalComment on above:Performed By: #### [id number] #### [facility] [address] [place], [place] [address]Sullknxds [Mass/Vol]0.3 mg/dLNormal0.0-1.1FCincinnati Children's Hospital Medical CenterComment on above:Performed By: #### [id number] #### [facility] [address] [place], [place] [address]Wbfernr [Mass/Vol]9.1 mg/dLNormal8.9-11.1FCincinnati Children's Hospital Medical CenterComment on above:Performed By: #### [id number] #### [facility] [address] [place], [place] [address]Mvptzgpx [Moles/Vol]111 mmol/REtjfrt771-390MbgvjiSt. Charles HospitalComment on above:Performed By: #### [id number] #### [facility] [address] [place], [place] [address]YF0 [Moles/Vol]22 mmol/MJlgzyo53-32WnmrzxSt. Charles Hospital Comment on above:Performed By: #### [id number] #### [facility] [address] [place], [place] [address]Tpovohkxbf [Mass/Vol]1.9 mg/dLHigh0.5-1.3FCincinnati Children's Hospital Medical CenterComment on above:Performed By: #### [id number] #### [facility] [address] [place], [place] [address]Sijzuboc (S) [Mass/Vol]3.1 g/dLNormal1.4-4.0St. Charles HospitalComment on above:Performed By: #### [id number] #### [facility] [address] [place], [place] [address]Woggrmt [Mass/Vol]197 mg/uUWvxekx81-428QdyyrvSt. Charles HospitalComment on above:Performed By: #### [id number] #### [facility] [address] [place], [place] [address]Nxjscjjkj [Moles/Vol]4.8 mmol/LNormal3.5-5.3FCincinnati Children's Hospital Medical CenterComment on above:Performed By: #### [id number] #### [facility] [address] [place], [place] [address]Pozxamq [Mass/Vol]6.9 g/dLNormal6.0-7.8St. Charles HospitalComment on above:Performed By: #### [id number] #### [facility] [address], [place] [address]Ikuiam [Moles/Vol]141 mmol/LGkqcpy698-639DenkbnSt. Charles HospitalComment on above:Performed By: #### [id number] #### [facility] [address], [place] [address]Nybo nitrogen [Mass/Vol]44 mg/dLHigh5-21St. Charles HospitalComment on above:Performed By: #### [id number] #### [facility] [address] [place], [place] [address]Kwfo nitrogen/Creatinine [Mass ratio]23 No LftuaZlug14-06YeqpqmSt. Charles HospitalComment on above:Performed By: #### [id number] #### [facility] [address] [place], [place] [address]Lrzkiwv for Treatmenton 40-89-6362Disijud for Treatment [id number]#1.00TIFFNormalSt. Charles HospitalFerritinon 04-04-2352Yzznovvi [Mass/Vol]193 ng/jEQeypye08-049IewjgiSt. Charles HospitalComment on above:Performed By: #### [id number] #### [facility] [address] [place], [place] [address]Tuopqjqi 05-26-4579Bhxakk [Mass/Vol]ng/mLNormal>=6.7Fisher [facility] Medical CenterComment on above:Performed By: #### [id number] #### [facility] [address], [place] [address]VQBGKIUJNKJqwnmys By: SYSTEM SYSTEM on 92-58-2050Obaprnppa/100 WBC (Bld)1.1 %Normal0.0 - 2.0 %Remisol HemeBasophils/Leukocytes Auto (Bld) [Pure # fraction]0.0 E9/LNormal0.0 - 0.2 E9/LRemisol HemeEosinophils (Bld) [#/Vol]0.2 E9/LNormal0.0 - 0.5 E9/LRemisol HemeEosinophils/100 WBC (Bld)4.3 %Normal0.0 - 8.0 %Remisol HemeErythrocyte distribution width (RBC) [Ratio]14.6 %High10.9 - 14.2 %Remisol HemeHematocrit (Bld) [Volume fraction]35.9 %Ddwfvg54.0 - 46.0 % Remisol HemeHemoglobin (Bld) [Mass/Vol]11.7 g/dLLow12.0 - 16.0 gm/dLRemisol Heme Lymphocytes (Bld) [#/Vol]1.3 E9/LNormal1.0 - 4.0 E9/LRemisol HemeLymphocytes/100 WBC (Bld)29.3 %Ksdhgx94.0 - 50.0 %Remisol HemeMCH (RBC) [Entitic mass]33.9 pg Vktplh24.0 - 34.0 pgRemisol HemeMCHC (RBC) [Mass/Vol]32.7 g/sWRzygpj40.4 - 36.0 gm/dLRemisol HemeMCV (RBC) [Entitic vol]103.7 zPAdze92.0 - 100.0 fLRemisol Heme Monocytes (Bld) [#/Vol]0.2 E9/LNormal0.2 - 1.0 E9/LRemisol HemeMonocytes/100 WBC (Bld)4.9 %Normal4.0 - 14.0 %Remisol HemeNeutrophils (Bld) [#/Vol]2.7 E9/LNormal 2.0 - 7.5 E9/LRemisol HemeNeutrophils/100 WBC (Bld)60.4 %Ttbnop30.0 - 75.0 % Remisol HemePlatelet mean volume (Bld) [Entitic vol]6.8 fLNormal6.4 - 10.8 fL Remisol HemePlatelets (Bld) [#/Vol]245.0 E9/IElbdkp853.0 - 500.0 E9/LRemisol HemeRBC (Bld) [#/Vol]3.5 E12/LLow4.3 - 5.9 E12/LRemisol HemeWBC corrected for nucl RBC Auto (Bld) [#/Vol]4.5 E9/LNormal4.0 - 11.0 E9/LRemisol HemeIronon 39-51-2262Kjuj [Mass/Vol]81 microgram/mJNjugai89-174OrapyzSt. Charles Hospital Comment on above:Performed By: #### [id number] #### [facility] [address] [place], [place] [address]Knpf Saturationon 80-87-8229Ehah binding capacity [Mass/Vol]277 microgram/zMUdejox819-743ZoztrqSt. Charles HospitalComment on above:Performed By: #### [id number] #### [facility] [address], [place] [address]Rwwv saturation [Mass fraction]29 %Bhawbm10-20YfklzdSt. Charles HospitalComment on above:Performed By: #### [id number] #### [facility] [address] [place], [place] [address]Ydmahgnn Progress Noteon 64-12-0425Gqmqaqwx Progress NoteChief Complaint Follow up on Breast [...] cm in length. ER greater than 95, HI greater than 95. Her2 1+ (this is [...] injections 01/30/23 she spent some time in [facility] maybe last month. They didnt have a bed afer her last hospitalization (for uti) a few weeks ago and so upon discharge went to [facility]. Her friends are concerned she will not be safe if she goes home. she seems to have a bad memory. her is also in [facility] despite our meticulous calender she seems to have trouble remembering to taek this when she was at home. She insists she is getting better and wants to go home. 05/01/23 she is in [facility]. she is convinced she will be able to be independent again. She is not walking even with a walker. [facility]. anemi (more content not included)...NormalFisher Greater Baltimore Medical CenterPhysician Orderon 17-91-4455Rxauhiasl Order [id number]#1.00TIFFNormalFisher Greater Baltimore Medical CenterPhysician [id number]#1.00TIFFNormal [facility] CenterPhysician Order [id number]#1.00TIFUC HealthTransferrinon 32-58-5813Ehancmeyref [Mass/Vol]198 mg/wNUro942-176DncbxySt. Charles HospitalComment on above:Performed By: #### [id number] #### [facility] [address] [place], [place] [address]Lay B12on 78-99-1996Jvtxspaog (Vitamin B12) [Mass/Vol]524 pg/mL Sishgx59-9789QwxqxdSt. Charles HospitalComment on above:Performed By: #### [id number] #### [facility] [address] [place], [place] [address]yJHLwx 80-25-7599eUOZ04 mL/min/1.73 m2Low>=59St. Charles HospitalComment on above:Order Comment: Order added by Discern Expert. Performed By: #### [id number] #### [facility] [address] [place], [place] [address]Wil Reportson 60-33-6342Utk Reports [id number]#1.00[facility] Methodist HospitalGlucose Glucometer (BldC) [Mass/Vol]Ordered By: Senthil Caldera on 50-15-6146Vrthhli [Mass/Vol]127 mg/dLAkron Children'S HospitalComment on above:Random Glucose Reference Range is dependent on time and content of last meal. Glucose of more than 200 mg/dL in a nonstressed, ambulatory subject supports the diagnosis of Diabetes Mellitus.Physician Orderon 06-27-2023 Physician [id number]#1.00[facility] Methodist HospitalConsent for Treatmenton 42-86-3192Dyilbsu for Treatment [id number]#1.00TIFRiverside Methodist Hospital Pat Eduon 40-96-3385ZQ Pat EduCaregiving Fall Prevention in the Home, [...] Keep items that you use often in svaf-ai-nihmz places. Lower the shelves around your home [...] the way. ? Do not use floor northern irish or wax that makes floors slippery. What [...] Control and Prevention, ELIO: www.cdc.gov ? National [place] on Aging: www.derrick.nih.gov Contact a doctor if: [...] provider. Document Revised: 01/08/2022 Document Reviewed: 11/09/2020 ElseTowi Patient Education ? 2022 Food and Beverage. Nutrition High-Protein and H (more content not included)...NormalFishHealthSouth Rehabilitation Hospital of [facility] EduCaregiving Fall Prevention in the Home, Adult [...] Keep items that you use often in rzkf-wy-fbzsh places. Lower the shelves around your home [...] the way. ? Do not use floor northern irish or wax that makes floors slippery. What [...] Control and Prevention, STEADI: www.cdc.gov ? National [place] on Aging: www.derrick.nih.gov Contact a doctor if: [...] provider. Document Revised: 01/08/2022 Document Reviewed: 11/09/2020 Teachbase Patient Education ? 2022 Food and Beverage. Obstetrics and Gynecology Br (more content not included)...[facility] Caregiving Fall Prevention in the Home, [...] Keep items that you use often in rwmp-oy-hilmu places. Lower the shelves around your home [...] the way. ? Do not use floor northern irish or wax that makes floors slippery. What [...] Control and Prevention, ELIO: www.cdc.gov ? National [place] on Aging: www.derrick.nih.gov Contact a doctor if: [...] provider. Document Revised: 01/08/2022 Document Reviewed: 11/09/2020 ElseTowi Patient Education ? 2022 Food and Beverage.[facility] Oncology Progress Noteon 50-30-7920Dlvieqmg Progress NoteChief Complaint Breast CA Pt her [...] cm in length. ER greater than 95, HI greater than 95. Her2 1+ (this is [...] injections 01/30/23 she spent some time in [facility] maybe last month. They didnt have a bed afer her last hospitalization (for uti) a few weeks ago and so upon discharge went to [facility]. Her friends are concerned she will not be safe if she goes home. she seems to have a bad memory. her is also in [facility] continues [place], despite our meticulous calender she seems to have trouble remembering to taek this when she was at home. She insists she is getting better and wants to go home. 05/01/23 she is in [facility]. she is convinced she will be able to be independent again. She is not walking even with a walker. continues kisquali. anemic on recent labs. 06/12/23 Continues kisquali and arimidex. recent PET/CT. notes interval enlargement of the right breast mass with development of 2 nodules with increased hypermetab (more content not included)...NormalFisher [facility] CenterPhysician Orderon 06-12-2023 Physician [id number]#1.00TIFFNormMercy HealthOutside Labson 52-24-3588Ynbhtfd Labs [id number]#1.00TIFFNormMercy HealthOutside Radiologyon 40-56-5906Yqppklu Radiology [id number]#1.00TIFNoMain Campus Medical CenterALL CBC WITH AUTO DIFFon 53-04-2590RLOURZNML ABSOLUTE AUTO0.1NOMS HealthcareBasophils/100 WBC (Bld)1.2 %0.2 - 2.0 %NOMS HealthcareEosinophils/100 WBC (Bld)3.8 %0.9 - 7.0 %[facility] SystemErythrocyte distribution width (RBC) [Ratio]13.4 %11.0 - 15.0 %[facility] SystemHematocrit (Bld) [Volume fraction]29.4 %Low36.0 - 48.0 %[facility] SystemHemoglobin (Bld) [Mass/Vol]9.4 g/dLLow12.0 - 16.0 g/dLLake Regional Health SystemIMMATURE GRANULOCYTES ABS AUTO0.02NOJefferson Memorial Hospital Immature granulocytes/100 WBC (Bld)0.4 %0.0 - 0.5 %[facility] SystemInterpretation and review of laboratory resultsAbnormalLake Regional Health SystemLYMPHOCYTES ABSOLUTE AUTO1.8NOMS [facility] CenterLymphocytes/100 WBC (Bld)35.5 %20.5 - 60.0 %[facility] HospitalH (RBC) [Entitic mass]33.5 pg26.7 - 34.0 pgSelect Specialty HospitalHC (RBC) [Mass/Vol]32.0 g/dL29.9 - 35.2 g/dLSelect Specialty HospitalV (RBC) [Entitic vol]104.6 oCGuly94.0 - 99.0 fLLake Regional Health SystemMONOCYTES ABSOLUTE AUTO0.4[facility] Monocytes/100 WBC (Bld)8.2 %1.7 - 12.0 %[facility] SystemNEUTROPHILS ABSOLUTE AUTO 2.5NOMS [facility] CenterNeutrophils/100 WBC (Bld)50.9 %43.0 - 75.0 %[facility] Platelet mean volume (Bld) [Entitic vol]9.2 fLLow9.5 - 13.5 fLLake Regional Health SystemTBH EO #0.2NOMS [facility] CenterTB MYU320BALT [facility] RBC2.81LowNOCenterpoint Medical Center WBC5.0[facility] SystemCLINISYNCNUniversity HospitalGLUCOSE POCT GLUCOMETERSon 77-64-1431Lpqhtsw [Mass/Vol]110 mg/dLLake Regional Health SystemComment on above:Random Glucose Reference Range is dependent on time and content of last meal. Glucose of more than 200 mg/dL in a nonstressed, ambulatory subject supports the diagnosis of Diabetes Mellitus. [facility] SystemGlucose Glucometer (BldC) [Mass/Vol]Ordered By: Senthil Caldera on 37-47-1812Pxtnjlr [Mass/Vol]110 mg/dLAkron Children'S Hospital Comment on above:Random Glucose Reference Range is dependent on time and content of last meal. Glucose of more than 200 mg/dL in a nonstressed, ambulatory subject supports the diagnosis of Diabetes Mellitus.ALL CBC WITH AUTO DIFFon 07-12-2790HHQMSOIDU ABSOLUTE AUTO0.1NOMS HealthcareBasophils/100 WBC (Bld)2.0 % 0.2 - 2.0 %NOMS HealthcareEosinophils/100 WBC (Bld)3.3 %0.9 - 7.0 %[facility] SystemErythrocyte distribution width (RBC) [Ratio]13.2 %11.0 - 15.0 %[facility] SystemHematocrit (Bld) [Volume fraction]28.4 %Low36.0 - 48.0 %[facility] SystemHemoglobin (Bld) [Mass/Vol]9.2 g/dLLow12.0 - 16.0 g/dLLake Regional Health System IMMATURE GRANULOCYTES ABS AUTO0.02NOJefferson Memorial HospitalImmature granulocytes/100 WBC (Bld)0.4 %0.0 - 0.5 %[facility] SystemInterpretation and review of laboratory resultsAbnormalNOJefferson Memorial HospitalLYMPHOCYTES ABSOLUTE AUTO2.0NOMS [facility] Lymphocytes/100 WBC (Bld)43.8 %20.5 - 60.0 %[facility] HospitalH (RBC) [Entitic mass]33.5 pg26.7 - 34.0 pgSelect Specialty HospitalHC (RBC) [Mass/Vol]32.4 g/dL29.9 - 35.2 g/dLSelect Specialty HospitalV (RBC) [Entitic vol]103.3 tVZhkz46.0 - 99.0 fLLake Regional Health SystemMONOCYTES ABSOLUTE AUTO0.3NOMS HealthcareMonocytes/100 WBC (Bld)6.9 % 1.7 - 12.0 %[facility] SystemNEUTROPHILS ABSOLUTE AUTO2.0NOMS [facility] Neutrophils/100 WBC (Bld)43.6 %43.0 - 75.0 %[facility] SystemPlatelet mean volume (Bld) [Entitic vol]9.0 fLLow9.5 - 13.5 fLLake Regional Health SystemTBH EO #0.2NOMS HealthcareTBH BPE732CIPT HealthcareTBH RBC2.75LowNOMS HealthcareTBH WBC4.5NOMS HealthcareCLINISYNCNOMS HealthcareInsurance Correspondenceon 48-16-4968Oznovjnbg [id number]#1.00TIFFAdams County HospitalOncology Noteon 89-49-6694Imhftpvc NotePer phone call from Claudette/[facility] [phone] - she wondered if we had the [...] taking it but doesn't have any to take.[facility] County HospitalComment on above:Result Comment: Electronically Signed By: Jane FARMER, Yolande Houston\.br\Date and Time Signed: 05/20/23 14:48 ESTPhysician Orderon 16-58-6195Uwiphxgcs Order [id number]#1.00[facility] HospitalComment on above:Other Comment: wrong patientPhysician Orderon 05-14-2023 Physician [id number]#1.00TIFFAdams County HospitalOutside Labson 42-80-0004Wfocbpp Labs [id number]#1.00TIFUC HealthOutside [id number]#1.00TIFUC HealthPhysician Orderon 89-47-4074Phwhgzdar Order [id number]#1.00[facility] HospitalPhysician [id number]#1.00TIFJosh Wilhelm [facility] Medical CenterConsent for Treatmenton 11-94-8987Desefxp for [id number]#1.00[facility] HospitalOncology Noteon 19-74-6797Fmqnlgvl NoteOncology Plant Propagator Office Visit/Treatment Note Current Patient Status/Reason: Pt in with driver license reviewing officer per pt request for scheduled clinicvisit. Dr. Caldera saw pt. Treatment Plan: PET at [facility] soon, since pt is corrina lift. CBC, CMP, iron studies, Folate, epo,[id number] before f/u (send orders to [facility]). Kisqali 200 mg 3 PO daily 3 weeks on 1 week off. Follow-Up Appointment Info/Referrals: F/U in 6 weeks. Resources Offered: Pt voiced no questions or concerns to me when I asked. I instructed that [facility] would call for PET, and lab orders would be faxed to [facility]. Pt voiced understanding of same. Pt also to continue Anastrozole PO daily.[facility] Comment on above:Result Comment: Electronically Signed By: Magda FARMER, Annia\.br\Date and Time Signed: 05/01/23 15:05ESTOncology Progress Noteon 16-57-1210Djdvlgti Progress NotePatient: MARLEN STALEY Age: 72 years [...] cm in length. ER greater than 95, HI greater than 95. Her2 1+ (this is [...] injections 01/30/23 she spent some time in [facility] maybe last month. They didnt have a bed afer her last hospitalization (for uti) a few weeks ago and so upon discharge went to [facility]. Her friends are concerned she will not be safe if she goes home. she seems to have a bad memory. her is also in [facility] continues kisquali, despite our meticulous calender she seems to have trouble remembering to taek this when she was at home. She insists she is getting better and wants to go home. 05/01/23 she is in [facility]. she is convinced she will be able to be independent again. She is not walking even with a walker. continues kisquali. anemic on recent labs. Review of Systems Constitutional: Negative. Eye: Negative. Ear/Nose/Mouth/Throat: Negative. Respiratory: Negative. Cardiovascular: Negative. Gastrointes (more content not included)...[facility] 10-82-7950Mvdjdlv Labs [id number]#1.00TIFFAdams County HospitalONC - Otheron 00-18-0081GSW - Other [id number]#1.00[facility] HospitalPhysician Orderon 64-43-8810Siafyjkyu Order [id number]#1.00[facility] HospitalConsent for Treatmenton 39-25-0526Bmfpylr for Treatment [id number]#1.00[facility] HospitalOncology Noteon 60-36-0940Bqxrxwfp NoteOncology Plant Propagator Office Visit/Treatment Note Current Patient Status/Reason: Patient here with friend, Karolina for scheduled clinic visit. I accompanied Dr. Caldera and medical student Nj in room. Patient is currently at [facility]. Labs done at [facility] 01/28/2023 reviewed. Disease process and treatment options discussed. Patient informs she like [facility] and having people around to socialize with. Physical exam done. Treatment Plan: continue Kisqali, monthly labs, PET 04/24/2023 Follow-Up Appointment Info/Referrals: after PET Resources Offered: Orders for [facility] regarding monthly labs filled out. Patient denies any questions/concerns at this time.[facility] HospitalComment on above:Result Comment: Electronically Signed By: Jane FARMER, Yolande Grande.br\Date and Time Signed: 01/30/23 17:07 EDTOncology Progress Noteon 01-35-1602Icxyqysd Progress NotePatient: MARLEN STALEY Age: 72 years [...] cm in length. ER greater than 95, HI greater than 95. Her2 1+ (this is [...] injections 01/30/23 she spent some time in [facility] maybe last month. They didnt have a bed afer her last hospitalization (for uti) a few weeks ago and so upon discharge went to [facility]. Her freinds are concerned she will not be safe if she goes home. she seems to have a bad memory. her is also in [facility] continues kisquali, despite our meticulous calender she seems to have trouble remembering to taek this when she was at home. She insists she is getting better and wants to go home. Review of Systems Constitutional: Negative. Eye: Negative. Ear/Nose/Mouth/Throat: Negative. Respiratory: Negative. Cardiovascular: Negative. Gastrointestinal: Negative. Genitourinary: Negative. Hematology/Lymphatics: Negative. Endocrine: Negative. Immunologic: Negative. Musculoskeletal: Negative. Integumentary: Negative. Neur (more content not included)...[facility] HospitalOutside Labs on 19-53-7980Iptpfcf [id number]#1.00TIFF [facility] HospitalOutside Labs [id number]#1.00TIFFNoMain Campus Medical CenterOutside Labson 97-50-3883Fgnmkom Labs [id number]#1.00TIFUC HealthCoding Queryon 61-69-5269Vavfex Query From: Torres FARMER, Monika To: Zaheer [...] IIIb From: Zaheer Sloan DO To: Torres FARMRE, Monika; Sent: 01/16/2023 12:27:31 EDT Subject: RE: Coding Query Caller Name: MARLEN STALEY; Caller Number: H NoMain Campus Medical CenterON - Otheron 36-25-1782OFR - Other [id number]#1.00CD:127Ad[facility] HospitalON - Otheron 76-93-5812HIG - Other [id number]#1.00CD:127Ad[facility] County HospitalDischarge Instructionson 26-95-7514Jqxorhpnj Instructions [id number]#1.00CD:127Ad[facility] HospitalTransfer Documentson 15-13-6045Aciifhbe Documents [id number]#1.00CD:[address] [place], [place] [address]CHEMISTRYOrdered By: Elma Khan on 26-03-3469Gfkquyw [Mass/Vol]111 mg/dL High55 - 99 mg/dLVALIR REHABILITATION HOSPITAL – [place] POC SubsectionComment on above:Result Comment: Notified RN/MDPOC Device [id number] Interpretation CodeFT POC SubsectionPOC User [id number] Interpretation CodeFT POC SubsectionPOC Username JUAN HENNESSYInvalid Interpretation CodeFT POC SubsectionCapillary Glucose POCon 57-05-1110Yilawom [Mass/Vol]111 mg/xRDwjb43-35Bmwfmc [facility] Comment on above:Result Comment: Notified RN/MDPerformed By: #### [id number] #### Wilhelm [facility] [address] [place], [place] [address]Bdtzytoxm Note-Nursingon 18-36-1512Uctjrehrp Note-Nursing MARLEN STALEY :1950 Visit Date:12/20/2022 Inpatient [...] Test Results None [facility] Please return to ER if symptoms change or worsen. Previously Scheduled Follow-Up Appointments Saturday 2:45 PM EDT With: Senthil Caldera DO Where: [facility] New Follow Up Appointments after Discharge Follow Up with Azar HANKS, NIKOLE Benedict When: Where: [address] [place] [address]- Medications What How Much When Why Instructions [...] tests. When your results (more content not included)...[facility] Urineon 70-20-3856Fcwzmbjn identified Cx Nom (U)Microbiology PROCEDURE: Urine Culture [R1] SOURCE: U CleanCatch BODY SITE: COLLECTED DATE/TIME: 12/20/2022 17:18 EDT RECEIVED DATE/TIME: 12/20/2022 17:49 EDT START DATE/TIME: 12/20/2022 17:49 EDT FREE TEXT SOURCE: Pedro Nava DO, DO, Pedro Mcneill FINAL REPORTS Final Report [] Verified Date/Time: 12/22/2022 07:10 EDT 1,000 cfu/ml Mixed skin contaminants Performing Locations R1: This test was performed at: [facility], [address] [place] [address], [facility] , , JsqdscYckwozAdams County HospitalComment on above:Performed By: #### [id number], [id number] ####[facility] [address] [place], [place] [address]CHEMISTRYOrdered By: Elma BRYANTUsematt on 70-18-7116Ncbpqfz [Mass/Vol]155 mg/jSGtfo46 - 99 mg/dLVALIR REHABILITATION [facility]OSP[facility] [place] POC SubsectionComment on above:Result Comment: Notified RN/MDPOC Device [id number] Interpretation CodeFT POC SubsectionPOC User [id number] Interpretation CodeFT POC Subsection POC UsernameROBERTS, DANEKAInvalid Interpretation CodeFT POC SubsectionGlucose [Mass/Vol]129 mg/fQYyqd22 - 99 mg/dLVALIR REHAB[facility] [place] POC SubsectionComment on above:Result Comment: Cleaned MeterPOC Device [id number] Interpretation CodeFT POC SubsectionPOC User [id number] Interpretation CodeFT POC Subsection POC UsernameMARCHADINORAHLYNInvalid Interpretation CodeVALIR REHABILITATION [facility]ITAL [facility] [place] POC Subsection Capillary Glucose POCon 86-94-0388Fsnutjf [Mass/Vol]155 mg/wAQfqt56-39IsrpyvSt. Charles HospitalComment on above:Result Comment: Notified RN/MDPerformed By: #### [id number], 5257600, 1546814, [id number], [id number] #### [facility] [address] [place], [place] [address]Qubpnoi [Mass/Vol]129 mg/mDOiec72-39Ynxbfj[address] Comment on above:Result Comment: Cleaned MeterPerformed By: #### [id number], 1035077, 7286472, [id number], [id number] #### [facility] [address] [place], [place] [address]Ndykklt [Mass/Vol]158 mg/aOGmsz41-54Pbkvrn[address] Comment on above:Result Comment: Cleaned MeterPerformed By: #### [id number] #### [facility] [address] [place], [place] [address]Gfadmmy [Mass/Vol]144 mg/yXIyss06-77Surqig[address] Comment on above:Result Comment: Notified RN/MDPerformed By: #### [id number] #### [facility] [address] [place], [place] [address]Ahafdjajmprynxmju Note - Case Manageron 12-22-2022 Interdisciplinary Note - Case ManagerCRM spoke with patient. Patient was previous rounded on by Dr Sloan today. Spouse is also patient and is in other bed in room. Patient is alert and oriented. Whiteboard updated and CRM contact # provided. Discussed with patient that [facility] does not have any beds and referral was made to [facility] but they do not take [employer]. Referral was sent to [facility] for both her and her spouse and they have accepted and started precert. Patient becomes upset and states that is to far away and to far for her Family to visit. Discussed only other closer facility is [facility] that takes her and spouse insurance. Patient states she will moose her insurance man and her friend Karolina and discuss withthem. Okay for CRM to call Karolina and daughter and update them as well. She does not want [facility] to cancel [facility] referral yet a she needs to talk to Karolian. CRM called both Karolina and guanaco Cervantes, no answer and left CRM contact number and VM on dc plans. 1406- Daughter Helen called CRM back and is agreeable to [facility] and states it is close for [...] she is now agreeable to go to [facility] as well as for her spouse to go there and updated her precert was obtained for [facility] and will dc tomorrow as she feels today is to soon for the patient and may upset her too much. 1510- CRM to room and spoke with patient and she is agreeable to go to [facility] SNF now. Discussed precert was obtained and could possible dc today. Patient became upset and said not today she and he spouse need time to get ready and her friend needs to bring her things. Will stay tonight and plan for dc in the am. CRM did explain this to spouse as well and he is agreeable.[facility] County HospitalComment on above:Result Comment: Electronically Signed By: Enoc FARMER, Jolanta\.br\Date and Time Signed: 12/22/22 16:25 EDTProgress Note-Physicianon 27-95-0131Jzvhptro Note-PhysicianAssessment/Plan 1. UTI (urinary tract infection) (N39.0: [...] mg/dL High (12/22/22 07:31:00) POC Device SN: [id number] (12/22/22 07:31:00) POC User ID: [id number] (12/22/22 07:31:00) POC Username: JANELLE RHODES (12/22/22 [...] Oral, Once a day (at bedtime), PRN [place] 5/325 Tab, 1 tab(s), Oral, q4hr, PRN [...] day (at bedtim (more content not included)...NormalSt. Charles HospitalComment on above:Result Comment: Electronically Signed By: Zaheer Sloan DO.br\Date and Time Signed: 12/22/22 09:47 EDTAuto Diffon 55-63-7262Uceveqwrf/100 WBC (Bld)2.6 %High 0.0-2.0St. Charles HospitalComment on above:Order Comment: Order Added by Discern Expert.Performed By: #### 3094127, 9446247, 4718204, 300533871, 76862525 #### [facility] [address] [place] [address]Afadtbhbp/Leukocytes Auto (Bld) [Pure # fraction]0.1 E9/LNormal 0.0-0.2FCincinnati Children's Hospital Medical CenterComment on above:Order Comment: Order Added by Discern Expert.Performed By: #### 6437795, 8250259, 5090039, 648783902, 79964230 #### [facility] [address] [place] [address]Yuxylicpzyd/100 WBC (Bld)2.5 %Normal0.0-8.0St. Charles HospitalComment on above:Order Comment: Order Added by Discern Expert.Performed By: #### 3639221, 7566689, 1380745, 049755334, 76100414 #### [facility] [address] [place] [address]Oavaxkrhfma/Leukocytes Auto (Bld) [Pure # fraction]0.1 E9/L Normal0.0-0.5FCincinnati Children's Hospital Medical CenterComment on above:Order Comment: Order Added by Discern Expert.Performed By: #### 2089304, 4238119, 9071215, 519387625, 65130813 #### [facility] [address] [place] [address]Bblrbkxjsom/100 WBC (Bld)42.1 %Gbskuh44.0-50.0St. Charles HospitalComment on above:Order Comment: Order Added by Discern Expert. Performed By: #### 8539967, 6131837, 9962066, 579180099, 08212441 #### [facility] [address] [place] [address]Sciglisegej/Leukocytes Auto (Bld) [Pure # fraction]1.4 E9/L Normal1.0-4.0St. Charles HospitalComment on above:Order Comment: Order Added by Discern Expert.Performed By: #### 6150298, 5702205, 1922857, 178510006, 19326976 #### [facility] [address] [place] [address]Gbvjtlkyy/100 WBC (Bld)13.6 %Normal4.0-14.0St. Charles HospitalComment on above:Order Comment: Order Added by Discern Expert.Performed By: #### 3981290, 7700076, 3980634, 081585209, 09593264 #### [facility] [address] [place] [address]Sqnjjutig/Leukocytes Auto (Bld) [Pure # fraction]0.4 E9/LNormal 0.2-1.0St. Charles HospitalComment on above:Order Comment: Order Added by Discern Expert.Performed By: #### 5199810, 8729971, 9337928, 997997835, 44813538 #### [facility] [address] [place] [address]Ccnpsfmehxl/100 WBC (Bld)39.2 %Lkrwdl80.0-75.0St. Charles HospitalComment on above:Order Comment: Order Added by Discern Expert. Performed By: #### 4567001, 4995809, 8069128, 257679706, 62215909 #### [facility] [address] [place] [address]Kaagqbulyrd/Leukocytes Auto (Bld) [Pure # fraction]1.3 E9/LLow 2.0-7.5FCincinnati Children's Hospital Medical CenterComment on above:Order Comment: Order Added by Discern Expert.Performed By: #### 9729717, 4879233, 9155881, 766954025, 29300848 #### [facility] [address] [place], [place] [address]KBAya 32-84-8326Phpbi gap [Moles/Vol]11 mmol/LNormal6-16St. Charles HospitalComment on above:Performed By: #### 7780938, 3325227, 3660667, 131426765, 56841085 #### [facility] [address] [place], [place] [address]Aomclmk [Mass/Vol]8.9 mg/dLNormal8.9-11.1FCincinnati Children's Hospital Medical CenterComment on above:Performed By: #### 6333120, 5661705, 5024699, 686993002, 60904447 #### [facility] [address] [place], [place] [address]Gfsgalkg [Moles/Vol]112 mmol/ANliv087-837YwqwztSt. Charles HospitalComment on above:Performed By: #### 3179978, 3430582, 2952753, 273453949, 59242832 #### [facility] [address] [place], [place] [address]NH7 [Moles/Vol]22 mmol/KXxmjji91-43BiqsumSt. Charles Hospital Comment on above:Performed By: #### 4988155, 5326918, 8385060, 091874040, 14470529 #### [facility] [address] [place], [place] [address]Htvuyqaxwq [Mass/Vol]1.4 mg/dLHigh0.5-1.3FCincinnati Children's Hospital Medical CenterComment on above:Performed By: #### 1440222, 0814982, 9133151, 727853935, 80712722 #### [facility] [address] [place], [place] [address]Ultbqhl [Mass/Vol]102 mg/iVBzoewa82-785OmkhnnSt. Charles HospitalComment on above:Result Comment: If this glucose result represents a fasting glucose, interpretation should refer tothe following reference range: 55-99 mg/dLPerformed By: #### 5374042, 4118667, 4413287, 169990341, 18373903 #### [facility] [address] [place], [place] [address]Wnqmxhvtk [Moles/Vol]4.0 mmol/LNormal3.5-5.3FCincinnati Children's Hospital Medical CenterComment on above:Performed By: #### 9118400, 1914136, 7823982, 170063022, 73718276 #### [facility] [address] [place], [place] [address]Qioezj [Moles/Vol]141 mmol/APhrspr745-659UeisbaSt. Charles HospitalComment on above:Performed By: #### 5213211, 3788105, 0101230, 987804997, 82794027 #### [facility] [address] [place], [place] [address]Kwpk nitrogen [Mass/Vol]36 mg/dLHigh5-21St. Charles HospitalComment on above:Performed By: #### 1318640, 3911816, 9087727, 858290963, 18149911 #### [facility] [address] [place], [place] [address]Hfun nitrogen/Creatinine [Mass ratio]26 No RyzdeDmaf32-18OerdnbSt. Charles HospitalComment on above:Performed By: #### 9068274, 8090182, 5712542, 612418325, 28278268 #### [facility] [address] [place], [place] [address]W Urineon 40-92-2593Ghpmkevn identified Cx Nom (U)Microbiology PROCEDURE: Urine Culture [...] Locations R1: This test was performed at: [facility], [address] [place] [address], [address]- , , YhjgvcPaysljSt. Charles HospitalComment on above:Performed By: #### 1133432, 1106160, 1641347, 567264009, 20163921 #### [address] [address]VDQ w/ Auto Diffon 41-10-9004Ypddnhghlrn distribution width (RBC) [Ratio]18.4 %High10.9-14.2FCincinnati Children's Hospital Medical CenterComment on above: Performed By: #### 1142868, 5955308, 3735197, 333506059, 48807435 #### [address] [address]Bwnezxzeln (Bld) [Volume fraction]26.8 %Low34.0-46.0St. Charles HospitalComment on above:Performed By: #### 6065413, 2439031, 8763945, 305181404, 27131995 #### [address] [address]Evuzymltrs (Bld) [Mass/Vol]9.3 g/dLLow12.0-16.0St. Charles HospitalComment on above:Performed By: #### 0972236, 9371472, 2577772, 084980606, 97155456 #### [address] [address]HLX (RBC) [Entitic mass]34.3 ktMlox76.0-34.0St. [facility] HospitalComment on above:Performed By: #### 1217771, 2906110, 3529880, 140361649, 67938567 #### [address] [address]MGJN (RBC) [Mass/Vol]34.8 g/aKWxjxie81.4-36.0[facility]. [facility] HospitalComment on above:Performed By: #### 0201149, 5392772, 5694609, 618804839, 02039031 #### [facility] [address] [place], [place] [address]HWO (RBC) [Entitic vol]98.6 qUKszysm72.0-100.0[facility] HospitalComment on above:Performed By: #### 2453655, 0547831, 3305469, 226620786, 64483249 #### [facility] [address] [place], [place] [address]Igisbttl mean volume (Bld) [Entitic vol]6.8 fLNormal6.4-10.8 [facility] HospitalComment on above:Performed By: #### 7877683, 8610544, 9216333, 836350909, 67981613 #### [facility] [address] [place], [place] [address]Mitxqqjqa (Bld) [#/Vol]201.0 E9/CQsjklk696.0-500.0[facility] HospitalComment on above:Performed By: #### 1862055, 3708135, 5397414, 752049234, 86184796 #### [facility] [address] [place] [address]GSP (Bld) [#/Vol]2.7 E12/LLow4.3-5.9[facility] Comment on above:Performed By: #### 6462350, 6233199, 0832220, 706804243, 31458274 #### [facility] [address] [place], [place] [address]YGQ corrected for nucl RBC Auto (Bld) [#/Vol]3.3 E9/LLow 4.0-11.0[facility] HospitalComment on above:Performed By: #### 3055284, 8806238, 6906988, 526951436, 16151009 #### [facility] [address] [place], [place] [address]MJBNHJDWYWidswum By: SYSTEM SYSTEM on 37-28-7625Gbcie gap [Moles/Vol]11 mmol/LNormal6 - 16 mEq/LFTMC RemisolCalcium [Mass/Vol]8.9 mg/dL Normal8.9 - 11.1 mg/dLVALIR [facility] [place] RemisolChloride [Moles/Vol]112 mmol/TKdzl008 - 111 mmol/LFTMC RemisolCO2 [Moles/Vol]22 mmol/ZSnrklm21 - 31 mmol/LFTMC Remisol Creatinine [Mass/Vol]1.4 mg/dLHigh0.5 - 1.3 mg/dLVALIR REHABILIT[facility] [place] RemisolGFR/1.73 sq M.predicted among non-blacks MDRD (S/P/Bld) [Vol rate/Area]40 mL/min/1.73 m2Low >=59mL/min/1.73 m2[facility] [place] Chem SGlucose [Mass/Vol]102 mg/jKVqhkhn48 - 199 mg/dLVALIR REH[facility] [place] RemisolPotassium [Moles/Vol]4.0 mmol/LNormal3.5 - 5.3 mmol/LFTMC RemisolSodium [Moles/Vol]141 mmol/TNyvtdz862 - 145 mmol/LFTMC RemisolUrea nitrogen [Mass/Vol] 36 mg/dLHigh5 - 21 mg/dLVALIR [facility] [place] RemisolUrea nitrogen/Creatinine [Mass ratio]26 mg/whUrsl72 - 20[facility] [place] RemisolCHEMISTRYOrdered By: Gavino Lyle on 51-84-3730SiY4e (Bld) [Mass fraction]7.1 %High<=5.9%[facility] [place] [facility] ChemAutoSSCapillary Glucose POCon 26-01-6433Oqmduaz [Mass/Vol]127 mg/eIBqyn08-16IcufgzSt. Charles HospitalComment on above:Result Comment: Notified RN/MDPerformed By: #### [id number] #### [facility] [address] [place], [place] [address]Gwwrhtr [Mass/Vol]160 mg/mXApqt69-28JsacjhSt. Charles Hospital Comment on above:Result Comment: Notified RN/MDPerformed By: #### [id number] ####[facility] [address] [place] [address] Glucose [Mass/Vol]132 mg/iZSazs41-46WedjklSt. Charles HospitalComment on above: Result Comment: Notified RN/MDPerformed By: #### 6735610, 9300976, 3085854, 095492569, 23239286 #### [facility] [address] [place], [place] [address]Celmsjz [Mass/Vol]115 mg/wBRxeg20-06ErdbbnSt. Charles Hospital Comment on above:Result Comment: Notified RN/MDPerformed By: #### [id number] #### [facility] [address] [place], [place] [address]KUSNGBTHSNQphmjtg By: SYSTEM SYSTEM on 40-72-3158Qhciijxzp/100 WBC (Bld)2.6 %High0.0 - 2.0 %[facility] HemeAutoSSBasophils/Leukocytes Auto (Bld) [Pure # fraction]0.1 E9/LNormal0.0 - 0.2 E9/LFTMC HemeAutoSSEosinophils/100 WBC (Bld)2.5 %Normal0.0 - 8.0 %[facility] HemeAutoSSEosinophils/Leukocytes Auto (Bld) [Pure # fraction]0.1 E9/LNormal0.0 - 0.5 E9/LFTMC HemeAutoSSLymphocytes/100 WBC (Bld)42.1 %Nlhvrz81.0 - 50.0 %[facility] HemeAutoSSLymphocytes/Leukocytes Auto (Bld) [Pure # fraction]1.4 E9/LNormal1.0 - 4.0 E9/LFTMC HemeAutoSSMonocytes/100 WBC (Bld)13.6 %Normal4.0 - 14.0 %[facility] HemeAutoSSMonocytes/Leukocytes Auto (Bld) [Pure # fraction]0.4 E9/LNormal0.2 - 1.0 E9/LFTMC HemeAutoSSNeutrophils/100 WBC (Bld)39.2 %Ycnhci24.0 - 75.0 %[facility] HemeAutoSSNeutrophils/Leukocytes Auto (Bld) [Pure # fraction]1.3 E9/LLow2.0 - 7.5 E9/LFTMC HemeAutoSSHEMATOLOGYOrdered By: Helen Durán on 14-51-9678Jpwhzkplnvf distribution width (RBC) [Ratio]18.4 %High 10.9 - 14.2 %[facility] HemeAutoSSHematocrit (Bld) [Volume fraction]26.8 %Low34.0 - 46.0 %[facility] HemeAutoSSHemoglobin (Bld) [Mass/Vol]9.3 g/dLLow12.0 - 16.0 gm/dLFTMC HemeAutoSSMCH (RBC) [Entitic mass]34.3 baThsr63.0 - 34.0 pgFTMC HemeAutoSSMCHC (RBC) [Mass/Vol]34.8 g/xWMzfhaz34.4 - 36.0 gm/dLFTMC HemeAutoSSMCV (RBC) [Entitic vol]98.6 zYSlfffl64.0 - 100.0 fLFTMC HemeAutoSSPlatelet mean volume (Bld) [Entitic vol]6.8 fLNormal6.4 - 10.8 fLFTMC HemeAutoSSPlatelets (Bld) [#/Vol]201.0 E9/VDrgamd191.0 - 500.0 E9/LFTMC HemeAutoSSRBC (Bld) [#/Vol]2.7 E12/LLow4.3 - 5.9 E12/LFTMC HemeAutoSSWBC corrected for nucl RBC Auto (Bld) [#/Vol]3.3 E9/LLow4.0 - 11.0 E9/LFTMC KqqyQqymGHUloY6nbq 65-33-9321DpF9l (Bld) [Mass fraction]7.1 %High<=5.9St. [facility] HospitalComment on above: Performed By: #### 0658922, 9796676, 8327262, 754493215, 01328587 #### [facility] [address] [place] [address]Olpestxdy Correspondence Officeon 62-10-3673Pnuwwpnfx Correspondence [id number]:127[facility] HospitalInterdisciplinary Note - OTon 12-21-2022 Interdisciplinary Note - [...] and safety with self care tasks and transfers.[facility] Interdisciplinary Note - Social Workeron 63-67-3193Fgljdhgiabqnqrtne Note - Social WorkerThis SW responded to [...] this time. SW will remain available as needed.[facility] HospitalMessage from Medicareon [id number] from Medicare [id number]#1.00CD:127NoMain Campus Medical CenterProgress Note-Physicianon 53-87-7008Bgeiyhbi Note-PhysicianAssessment/Plan 1. UTI (urinary tract infection) (N39.0: Urinary tract infection, site not specified) ? Urine culture positive for E. coli, pansensitive ? We will continue Keflex as patient tolerated in the past ? We will continue to monitor for signs of improvement Ordered: Initial Hospital Care/Day Moderate 55 Minutes 35226 Sbsq Hospital Care/Day Straight Fwd 25 Minutes 57792 2. Age-related cognitive decline (R41.81: Age-related cognitive [...] 06:07:00) Lymph Auto: 42.1 % (12/21/22 06:07:00) Yancey Auto: 13.6 % (12/21/22 06:07:00) Eos Auto: 2.5 % (12/21/22 06:07:00) Basophil Auto: 2.6 % High (12/21/22 06:07:00) Neutro Absolute: 1.3 E9/L Low (12/21/22 06:07:00) Lymph Absolute: 1.4 E9/L (12/21/22 06:07:00) Yancey Absolute: 0.4 E9/L (12/21/22 06:07:00) Eos Absolute: [...] Lvl: 3.5 gm/dL (12/20 (more content not included)...[facility] HospitalComment on above:Result Comment: Electronically Signed By: Zaheer Sloan DO\.br\Date and Time Signed: 12/21/22 14:15 EDTeGFRon 12-21-2022 GFR/1.73 sq M.predicted among non-blacks MDRD (S/P/Bld) [Vol rate/Area]40 mL/min/1.73 m2Low>=59St. Charles HospitalComment on above:Order Comment: Order added by Discern Expert.Result Comment: Chronic kidney disease could be indicated at eGFR's of less than 60 mL/min/1.73m2. Kidney failure is indicated at less than 15 mL/min/1.73m2.Performed By: #### 8571143, 1793284, 6403442, 913106329, 23026333 #### [facility] [address] [place] [address]Dizc Diffon 39-58-6531Nkuaednox/100 WBC (Bld)3.5 %High0.0-2.0 [facility] HospitalComment on above:Order Comment: Order Added by Discern Expert.Performed By: #### 5544739, 0240881, 5709921, 160522780, 73750111 #### [facility] [address] [place] [address]Iptavxkyp/Leukocytes Auto (Bld) [Pure # fraction]0.1 E9/LNormal 0.0-0.2FCincinnati Children's Hospital Medical CenterComment on above:Order Comment: Order Added by Discern Expert.Performed By: #### 0741923, 4713949, 3426049, 494683826, 89759719 #### [facility] [address] [place] [address]Scfbkiopsxs/100 WBC (Bld)1.3 %Normal0.0-8.0St. [facility] HospitalComment on above:Order Comment: Order Added by Discern Expert.Performed By: #### 7702244, 8934977, 2513089, 295812559, 52736061 #### [facility] [address], [place] [address]Vqaiwgrhtzp/Leukocytes Auto (Bld) [Pure # fraction]0.0 E9/L Normal0.0-0.5FCincinnati Children's Hospital Medical CenterComment on above:Order Comment: Order Added by Discern Expert.Performed By: #### 7788164, 5673016, 9515013, 980399121, 23120418 #### [facility] [address] [place] [address]Awumzpgkwyx/100 WBC (Bld)28.4 %Ffrzjp83.0-50.0[facility]. [facility] HospitalComment on above:Order Comment: Order Added by Discern Expert. Performed By: #### 7038415, 7363940, 6375323, 694947116, 63971129 #### [facility] [address] [place] [address]Rzziyqvdeox/Leukocytes Auto (Bld) [Pure # fraction]1.1 E9/L Normal1.0-4.0[facility]. [facility] HospitalComment on above:Order Comment: Order Added by Discern Expert.Performed By: #### 7685931, 4374308, 3490125, 596304521, 63730707 #### [facility] [address] [place] [address]Svhasfmdu/100 WBC (Bld)12.5 %Normal4.0-14.0[facility]. [facility] HospitalComment on above:Order Comment: Order Added by Discern Expert.Performed By: #### 5655455, 4759154, 4982753, 527538249, 14822083 #### [facility] [address] [place] [address]Akutrnuzz/Leukocytes Auto (Bld) [Pure # fraction]0.5 E9/LNormal 0.2-1.0[facility] HospitalComment on above:Order Comment: Order Added by Discern Expert.Performed By: #### 9327528, 6821065, 6592363, 280986865, 84459900 #### [facility] [address] [place] [address]Yohpxtwotcf/100 WBC (Bld)54.3 %Mefraa88.0-75.0[facility] HospitalComment on above:Order Comment: Order Added by Discern Expert. Performed By: #### 5643434, 0087927, 3563515, 230568054, 17217316 #### [facility] [address] [place] [address]Nazbgokpxxk/Leukocytes Auto (Bld) [Pure # fraction]2.1 E9/L Normal2.0-7.5FCincinnati Children's Hospital Medical CenterComment on above:Order Comment: Order Added by Discern Expert.Performed By: #### 1903273, 2156573, 5462515, 284587691, 34210268 #### [facility] [address], [place] [address]DEMee 77-71-4813Tstvrukmom [Mass/Vol]1.3 mg/dLNormal0.5-1.3 [facility] HospitalComment on above:Performed By: #### 0541433, 9479999, 3128502, 168944731, 35238872 #### [facility] [address], [place] [address]Lshy nitrogen [Mass/Vol]36 mg/dLHigh5-21St. [facility] HospitalComment on above:Performed By: #### 8503266, 1571341, 1172010, 586873896, 88724078 #### [facility] [address] [place], [place] [address]Pacn nitrogen/Creatinine [Mass ratio]28 No MsutxRvwf79-08LzrzeySt. Charles HospitalComment on above:Performed By: #### 2767681, 0598812, 2712571, 633657838, 75808512 #### [facility] [address] [place], [place] [address]Stcdo gap [Moles/Vol]13 mmol/LNormal6-16St. [facility] HospitalComment on above:Performed By: #### 6665079, 0115581, 0914868, 584728326, 45701435 #### [facility] [address] [place], [place] [address]Citiadw [Mass/Vol]9.6 mg/dLNormal8.9-11.1FCincinnati Children's Hospital Medical CenterComment on above:Performed By: #### 6036172, 5431529, 8937559, 524055538, 06212793 #### [facility] [address] [place], [place] [address]Ccxkkwql [Moles/Vol]108 mmol/PPuketu938-602VpqzutSt. Charles HospitalComment on above:Performed By: #### 6141703, 1373077, 4875328, 922166788, 88488288 #### [facility] [address], [place] [address]DS1 [Moles/Vol]21 mmol/XSmsvfj44-05LekcrfSt. Charles Hospital Comment on above:Performed By: #### 5631375, 7657817, 8210060, 530848989, 47932726 #### [facility] [address], [place] [address]Yijhlmh [Mass/Vol]136 mg/sYLclvcg85-097XjpxoxSt. Charles HospitalComment on above:Result Comment: If this glucose result represents a fasting glucose, interpretation should refer tothe following reference range: 55-99 mg/dLPerformed By: #### 0770394, 2889701, 6216202, 223260043, 14839424 #### [facility] [address] [place], [place] [address]Ivnnciscx [Moles/Vol]4.2 mmol/LNormal3.5-5.3FCincinnati Children's Hospital Medical CenterComment on above:Performed By: #### 5392419, 8299002, 8196244, 432120392, 97393671 #### [facility] [address] [place], [place] [address]Jxdiow [Moles/Vol]138 mmol/LUjtylp129-073KsuotjSt. Charles HospitalComment on above:Performed By: #### 0768718, 6067663, 4125951, 665404393, 02213066 #### [facility] [address] [place], [place] [address]XPJ w/ Auto Diffon 70-65-5307Frzptxwaoon distribution width (RBC) [Ratio]19.0 %High10.9-14.2FCincinnati Children's Hospital Medical CenterComment on above: Performed By: #### 0591089, 9734447, 8713099, 879671846, 32248812 #### [facility] [address] [place], [place] [address]Czigsyipcx (Bld) [Volume fraction]31.3 %Low34.0-46.0St. Charles HospitalComment on above:Performed By: #### 7948483, 6970044, 0238713, 586208717, 88326652 #### [facility] [address] [place] [address]Xhkiuhrgdf (Bld) [Mass/Vol]10.4 g/dLLow12.0-16.0St. [facility] HospitalComment on above:Performed By: #### 3209923, 8205744, 9870739, 859098767, 90747106 #### [facility] [address] [place] [address]JFM (RBC) [Entitic mass]33.3 xhJwjhoo82.0-34.0St. [facility] HospitalComment on above:Performed By: #### 7339811, 8647855, 5848939, 523926004, 42875986 #### [facility] [address] [place] [address]NPZV (RBC) [Mass/Vol]33.3 g/rNTsdlax70.4-36.0St. [facility] HospitalComment on above:Performed By: #### 4148833, 1971535, 2349586, 525541882, 52793283 #### [facility] [address] [place] [address]FVB (RBC) [Entitic vol]99.8 rWUqithp81.0-100.0St. [facility] HospitalComment on above:Performed By: #### 8326788, 7704375, 2140274, 803485478, 80585508 #### [facility] [address] [place] [address]Olmzcvuh mean volume (Bld) [Entitic vol]6.8 fLNormal6.4-10.8 [facility] HospitalComment on above:Performed By: #### 5809696, 8895593, 8992689, 436141762, 90666636 #### [facility] [address] [place], [place] [address]Nhzjjugib (Bld) [#/Vol]212.0 E9/ENtscqa531.0-500.0St. [facility] HospitalComment on above:Performed By: #### 2214496, 2430030, 3198578, 881163091, 62828280 #### [facility] [address], [place] [address]OUU (Bld) [#/Vol]3.1 E12/LLow4.3-5.9[facility] Comment on above:Performed By: #### 8505347, 2720448, 4520586, 888908859, 58744668 #### [facility] [address], [place] [address]WRD corrected for nucl RBC Auto (Bld) [#/Vol]3.9 E9/LLow 4.0-11.0[facility]. [facility] HospitalComment on above:Performed By: #### 5405922, 7709976, 0448558, 829098711, 79873407 #### [facility] [address], [place] [address]JDJGBEOOKGknwmne By: SYSTEM SYSTEM on 78-00-8248Njlivvkg I.cardiac [Mass/Vol]10.20 pg/wRFikmzd15.10 - 27.10 pg/mLFTMC RemisolAlbumin [Mass/Vol]3.5 g/dLNormal3.3 - [...] [Mass/Vol]9.6 mg/dLNormal8.9 - 11.1 mg/dLFTMC RemisolChloride [Moles/Vol]108 mmol/SJqfjjp038 - 111 mmol/LFTMC RemisolCO2 [Moles/Vol]21 mmol/L Crefhy08 - 31 mmol/LFTMC RemisolCreatinine [Mass/Vol]1.3 mg/dLNormal0.5 - 1.3 mg/dLFTMC RemisolGFR/1.73 sq M.predicted among non-blacks MDRD (S/P/Bld) [Vol rate/Area]43 mL/min/1.73 m2Low>=59mL/min/1.73 m2FT[facility] Chem SGlobulin (S) [Mass/Vol]3.8 g/dLNormal1.4 - 4.0 gm/dLFTMC RemisolGlucose [Mass/Vol]136 mg/dL Rrhioa23 - 199 mg/dLFTMC RemisolPotassium [Moles/Vol]4.2 mmol/LNormal3.5 - 5.3 mmol/LFTMC RemisolProtein [Mass/Vol]7.3 g/dLNormal6.0 - 7.8 gm/dLFTMC Remisol Sodium [Moles/Vol]138 mmol/VVgadkb482 - 145 mmol/LFTMC RemisolTroponin I.cardiac [Mass/Vol]9.80 pg/mLLow10.10 - 27.10 pg/mLFTMC RemisolUrea nitrogen [Mass/Vol] 36 mg/dLHigh5 - 21 mg/dLFTMC RemisolUrea nitrogen/Creatinine [Mass ratio]28 mg/daCocg53 - 20FT[facility] RemisolConsent for Treatmenton 13-47-0714Keszokl for [id number]#[id number]:127[facility] HospitalDischarge Instructionson 58-95-4081Kiaorwpos Instructions [id number]#1.00CD:127[facility] Clinical Summaryon 77-15-5365HU Clinical Summary [place] [id number] ED Clinical Summary Person Information Name: MARLEN STALE[facility] Age: 72 Years : 1950 Sex: Female Language: Mohawk PCP: Rickey Askew MD Marital Status: Phone: [phone] MRN: Visit Id: Visit Reason: Dysuria; Weakness or fatigue; UTI Speciality: Acuity: 3 Enc Type: Inpatient Med Service: Medical Arrival: 12/20/2022 15:04:00 Discharge: LOS: 000 03:52 Checkin: 12/20/2022 15:04:00 Checkout: 12/20/2022 18:56:43 Dispo Type: Admitted as IP to this [facility] EVENTS: Event Name Event Status Request [...] 18:40:53 Patient Care Request 12/20/2022 18:52:04 ADDRESS: [address] [place] [address] [address] [place] [id number] PHYS DOC NOTES: MEDICAL INFORMATION: Prescriptions Given: [...] cognitive decline; 3:History of breast cancer; 4:HTN(hypertension); 5:HypercholesteremiaNormalNovant Health Forsyth [facility] Centerer [facility] Clinical Summary [place] [id number] ED Clinical Summary Person Information Name: MARLEN STALEY/Savita Age: 72 Years : 1950 Sex: Female Language: Mohawk PCP: Rickey Askew MD Marital Status: Phone: [phone] MRN: Visit Id: Visit Reason: Medical problem [...] 12/20/2022 00:50:56 12/20/2022 00:50:56 12/20/2022 00:50:56 ADDRESS: [address] [place] [address] [place] [id number] PHYS DOC NOTES: MEDICAL INFORMATION: Prescriptions Given: New Medications [facility], [address] [place], [place] [phone], [phone] cephalexin (Keflex 500 mg Cap) 1 Capsules [...] EDUCATION INFORMATION: Instructions: Urinary Tract Infection, Adult, Bjii-bn-Hpuk; Anemia; Dehydration, Adult, Jtql-ly-Jbum Follow up: With: Address: When: Rickey Askew [address] [place] [address] Business (1) In 2 days 12/21/2022 DIAGNOSIS: 1:Generalized weakness; 2:Frequent falls; 3:Anemia; 4:Dehydration; 5:Urinary tract infectionVitaly Doe Medical CenterED Note-Physicianon [id number] Note-PhysicianBasic Information Time Seen: Pedro Nava DO 12/20/2022 15:31 Chief Complaint Pt came in via [facility] for dysuria and weakness. Pt states she [...] daughter wants her to go into a fdc as they can no longer be cared [...] refills Vitamin D3 20 (more content not included)...[facility] Comment on above:Result Comment: Electronically Signed By: Pedro Nava DO\.br\Date and Time Signed: 12/20/22 19:22 EDTED Note-PhysicianBasic Information Time Seen: David Tong MD 12/19/2022 20:40 Chief Complaint says she has been getting increasingly weaker. on wait list for [facility] History of Present Illness 72-year-old female presents [...] to be in assisted living at the [facility]. She does have a history of diabetes. [...] day(s), # 28 cap(s), Refills(s) 0, Pharmacy: [facility], 167.6, cm, 12/19/22 20:43:00 EDT, Height/Length [...] Askew In 2 days 12/21/2022 EDT [address] [place] [address] [facility](1) Additional Instructions: Patient Education Urinary Tract Infection, Adult, Fnee-xd-Uuhi Anemia Dehydration, Adult, Jfjt-bn-Qfee Problem List/Past Medical History Ongoing Age-related cognitive decline Axillary adenopathy Chronic edema Diabetes History of breast cancer History of healed fragility fracture HTN (hypertension) Hypercholesteremia Invasive ductal carcinoma of right breast Multiple closed fractures of pelvis with stable disruption of pelvic ring with routine healing, subsequent encounter Vitamin D deficiency Historical No qualifying data Procedure/Surgical (more content not included)...[facility] HospitalComment on above:Result Comment: Electronically Signed By: David Tong MD\.br\Date and Time Signed: 12/20/22 00:40 EDTED Patient Education Noteon 70-71-9310YL Patient Education NoteNormGood [facility]aritan [facility] Patient Education NoteHematology Anemia Anemia is [...] Follow these instructions at home: ? Take quyp-tcj-jnhgxoy and prescription medicines only as told by [...] provider. Document Revised: 02/20/2022 Document Reviewed: 03/15/2020 [employer] Patient Education ? 2022 [employer] Nutrition Dehydration, Adult Dehydration is condition [...] Peeing (urinating) a lot. (more content not included)...[facility] Patient Summaryon 93-46-3696JB Patient Summary [place] [id number] Patient Discharge Instructions Person Information Name: MARLEN STALEY Age: 72 Years Arrival Date: 12/20/2022 15:04:00 Discharge Diagnosis: 1:UTI (urinary tract infection); 2:Age-related cognitive decline; 3:History ofbreast cancer; 4:HTN (hypertension); 5:Hypercholesteremia Primary Care Physician: Azar HANKS, Rickey Lynn Provider Information Primary Provider: Pedro Nava DO Advanced Manager Diversity:None The exam and treatment you received in the Emergency Department were for an urgent problem and are not intended as complete care. It is important that you follow up with a doctor, nurse practitioner,or physician?s assisted living assistant for ongoing care. If your symptoms [...] opioids can be used to help relieve eqwhyfbp-ip-cpdaat pain and are often prescribed following a [...] be struggling with addiction, tell your health infant caregiver and ask for guidance or call SAMHSA?S National Helpline at 6-451-137-HELP. v Source: [place] Department of Health and Human Services/Center for Diseas (more content not included)...[facility] Patient Summary [address] [address] Patient Discharge Instructions Person Information Name: MARLEN STALEY Age: 72 Years Arrival Date: 12/19/2022 20:39:01 Discharge Diagnosis: 1:Generalized weakness; 2:Frequent falls; 3:Anemia; 4:Dehydration; 5:Urinary tract infection Primary Care Physician: Azar HANKS, Rickey Lynn Provider Information Primary Provider: David Tong MD Advanced Manager Diversity:None The exam and treatment you received in the Emergency Department were for an urgent problem and are not intended as complete care. It is important that you follow up with a doctor, nurse practitioner,or physician?s assisted living assistant for ongoing care. If your symptoms [...] Instructions: With: Address: When: Rickey [place] [address] Business (1) In 2 days 12/21/2022 In the event that this physician does not participate in your insurance network, please consult with your insurance company to find a nearby participating provider. Patient Education Materials: Urinary Tract Infection, Adult, Dgpi-bw-Vhnw; Anemia; Dehydration, Adult, Smyg-xt-Jslt A MESSAGE TO ALL PATIENTS REGARDING OPIOIDS PRESCRIPTION OPIOIDS: WHAT YOU NEED TO KNOW Prescription opioids can be used to help relieve opnfbnrx-by-egcjrk pain and are often prescribed following a [...] tell your health care (more content not included)...[facility] HospitalHEMATOLOGYOrdered By: [employer] SYSTEM on 82-53-1713Vqidqnibg/100 WBC (Bld)3.5 %High0.0 - 2.0 %[facility] HemeAutoSSBasophils/Leukocytes Auto (Bld) [Pure # fraction]0.1 E9/LNormal0.0 - 0.2 E9/LFTMC HemeAutoSSEosinophils/100 WBC (Bld)1.3 %Normal0.0 - 8.0 %[facility] HemeAutoSSEosinophils/Leukocytes Auto (Bld) [Pure # fraction]0.0 E9/LNormal0.0 - 0.5 E9/LFTMC HemeAutoSSLymphocytes/100 WBC (Bld)28.4 %Ydengi62.0 - 50.0 %[facility] HemeAutoSSLymphocytes/Leukocytes Auto (Bld) [Pure # fraction]1.1 E9/LNormal1.0 - 4.0 E9/LFTMC HemeAutoSSMonocytes/100 WBC (Bld)12.5 %Normal4.0 - 14.0 %[facility] HemeAutoSSMonocytes/Leukocytes Auto (Bld) [Pure # fraction]0.5 E9/LNormal0.2 - 1.0 E9/L[facility] HemeAutoSSNeutrophils/100 WBC (Bld)54.3 %Kztbkn85.0 - 75.0 %[facility] HemeAutoSSNeutrophils/Leukocytes Auto (Bld) [Pure # fraction]2.1 E9/LNormal2.0 - 7.5 E9/L[facility] HemeAutoSSHEMATOLOGYOrdered By: Gavino Lyle on 12-20-2022 Erythrocyte distribution width (RBC) [Ratio]19.0 %High10.9 - 14.2 %[facility] HemeAutoSSHematocrit (Bld) [Volume fraction]31.3 %Low34.0 - 46.0 %[facility] HemeAutoSSHemoglobin (Bld) [Mass/Vol]10.4 g/dLLow12.0 - 16.0 gm/dLFTMC HemeAutoSSMCH (RBC) [Entitic mass]33.3 dcNxlfue59.0 - 34.0 pgFTULSA [facility] & [facility] [place] HemeAutoSSMCHC (RBC) [Mass/Vol]33.3 g/bTLacgxr79.4 - 36.0 gm/dLVALIR REH[facility] [place] HemeAutoSSMCV (RBC) [Entitic vol]99.8 nEKkkiok76.0 - 100.0 fLVALIR REHABILITATION HOSPITAL [facility] [place] HemeAutoSSPlatelet mean volume (Bld) [Entitic vol]6.8 fLNormal6.4 - 10.8 fLVALIR REHABILITATION [facility] [place] HemeAutoSSPlatelets (Bld) [#/Vol]212.0 E9/YEwfnyc336.0 - 500.0 E9/[facility] HemeAutoSSRBC (Bld) [#/Vol]3.1 E12/LLow4.3 - 5.9 [facility] HemeAutoSSWBC corrected for nucl RBC Auto (Bld) [#/Vol]3.9 E9/LLow4.0 - 11.0 /[facility] HemeAutoSSHep Func Panelon 12-20-2022 Bilirubin.direct [Mass/Vol]0.1 mg/dLNormal0.1-0.4FCincinnati [facility] Comment on above:Performed By: #### 1518659, 5637975, 5832800, 678170963, 13814068 #### [facility] [address] [place], [place] [address]Erluabifa.indirect [Mass or moles/Vol]0.8 mg/dLNormal0.1-0.9 [facility] HospitalComment on above:Performed By: #### 8839551, 1402787, 7971101, 070789439, 36461706 #### [facility] [address] [place], [place] [address]Dcxqncx [Mass/Vol]3.5 g/dLNormal3.3-5.0St[facility] HospitalComment on above:Performed By: #### 4307825, 9715741, 4737892, 611015438, 12558699 #### [facility] [address] [place], [place] [address]Lkijdot/Globulin (S) [Mass conc ratio]0.9Low1.1-2.2FCincinnati Children's Hospital Medical CenterComment on above:Performed By: #### 1400249, 4571712, 3003741, 554163351, 67333495 #### [facility] [address] [place], [place] [address]MAT [Catalytic activity/Vol]101 Int._Unit/YOrwl07-14YiusqlSt. Charles HospitalComment on above:Performed By: #### 7159986, 2733916, 6330028, 004599388, 91850576 #### [facility] [address] [place] [address]UKE No additional P-5'-P [Catalytic activity/Vol]20 Int._Unit/L Normal6-46St. Charles HospitalComment on above:Performed By: #### 9199313, 5990193, 3427569, 455400048, 39046376 #### [facility] [address], [place] [address]VQN [Catalytic activity/Vol]18 Int._Unit/LNormal5-43St[facility] HospitalComment on above:Performed By: #### 7810426, 8768580, 5405663, 857147610, 37286497 #### [facility] [address] [place] [address]Rihevxicl [Mass/Vol]0.9 mg/dLNormal0.0-1.1FCincinnati Children's Hospital Medical CenterComment on above:Performed By: #### 7497285, 7378364, 3432518, 049884057, 07345080 #### [facility] [address], [place] [address]Oeasilsj (S) [Mass/Vol]3.8 g/dLNormal1.4-4.0St[facility] HospitalComment on above:Performed By: #### 6035349, 8118852, 7997413, 373044893, 01327783 #### [facility] [address] [place] [address] [place] [address]Upjucyi [Mass/Vol]7.3 g/dLNormal6.0-7.8St[facility] HospitalComment on above:Performed By: #### 6577388, 0614032, 2633432, 148877988, 32890856 #### [facility] [address] [place], [place] [address]Rpymomwvom - Microbiology and Antimicrobial susceptibility Ordered By: Ninfa Sawyer on 68-79-6890Lzqrcxxh identified Cx Nom (U)1,000 cfu/ml Mixed skin contaminantsSumma HealthMonitor Recordon 36-01-3994Xbxgnhq [id number]#1.00CD:127 [facility] [id number]-Arrival Note Pre-Arrival Summary Name: UTI, ncems Current Date: 12/20/2022 15:06:09 EDT Gender: Date of : Age: Pre-Arrival Type: EMS ETA: 12/20/2022 15:31:00 EDT Primary Care Physician: Presenting Problem: Pre-Arrival User: Delia Tsai RN Referring Source: Location: DC Completion Date/Time: 12/20/2022 15:01:00 [facility] Emergency Department Pre-Hospital Report Form Vital Signs: Pre-Hospital Report: Treatment in Route: Response to Treatment: Misc. Issues:[facility] Hr.on 12-20-2022 Troponin I.cardiac [Mass/Vol]9.80 pg/mLLow10.10-27.10[facility] Comment on above:Result Comment: The 95% CI (Confidence Interval) PPV (Positive Predictive Value) for myocardial infarction in females is 38 pg/mL, in males 51 pg/mL. The results should be used in conjunction with clinical conditions of myocardial infarction. ([employer] High Sensitivity Troponin I Instructions For Use, [employer], November 2017)Performed By: #### 9291753, 1410009, 6786009, 922176816, 63418858 #### [facility] [address] [place], [place] [address]Kvvberbr 3 Hr.on 69-28-7303Xkaeaweo I.cardiac [Mass/Vol]10.20 pg/tZRcyllk44.10-27.10St[facility] HospitalComment on above:Result Comment: The 95% CI (Confidence Interval) PPV (Positive Predictive Value) for myocardial infarction in females is 38 pg/mL, in males 51 pg/mL. The results should be used in conjunction with clinical conditions of myocardial infarction. ([employer] High Sensitivity Troponin I Instructions For Use, [employer], November 2017)Performed By: #### 7839218, 7054769, 4379079, 009665785, 58717675 #### [facility] [address], [place] [address]IA With Cult Reflexon 79-16-0077Jricwkbzv Ql (U)NegativeNormal NegativeSt. Charles HospitalComment on above:Performed By: #### 47216090, 5649931 ####[address] [place], [place] [address]Bjxcfni (U)CLEARNormalClearSt. Charles HospitalComment on above: Performed By: #### 32003413, 6748805 ####[address] [place], [place] [address]Kvpjz (U)STRAWAbnormalYellowSt. Charles HospitalComment on above:Performed By: #### 66883607, 8450523 ####[address] [address] Epithelial cells.squamous LM.HPF (Urine sed) [#/Area]2-7Qqnfmy6-4Pmtdmd [facility] CenterComment on above:Performed By: #### 73754734, 6150447 ####[address] [place], [place] [address]Syfxlar Test strip (U) [Mass/Vol]NegativeNormalNegativeSt. Charles HospitalComment on above:Performed By: #### 06251718, 0906477 ####[address] [address]Qwpepveeer Ql (U)TRACEAbnormal [facility] Center OhioComment on above:Performed By: #### 38180245, 5342379 ####[address] [address]Bfvuexr (U) [Mass/Vol]NegativeNormalNegativeSt. [facility] Hospital Comment on above:Performed By: #### Celina, 4306444 ####[address] [address]Hwndlfg.plasma/[place].RBC (Bld) [Mass ratio]3-8Bucbgr5-9Tqwdva [facility] CenterComment on above: Performed By: #### 47863528, 5679895 ####[address] [address]Xyriunn Ql (U)NegativeNormalNegative St. Charles HospitalComment on above:Performed By: #### 07339455, 5777857 ####[address] [address]tE (U)5.5 [pH]Invalid Interpretation Code5.0-9.0St. [facility] HospitalComment on above:Performed By: #### 84485268, 7252691 ####[address] [address]Nvmxmhk (U) [Mass/Vol]NegativeNormal NegativeSt. Charles HospitalComment on above:Performed By: #### 59652053, 9875520 ####[address] [address]Feqharwl gravity (U) [Rel density]<=1.005Invalid Interpretation Code 1.005-1.030St. [facility] HospitalComment on above:Performed By: #### 19975964, 6992084 ####[facility] [address] [place] [address]Xxpx of Urine collection methodClean CatchNormalSt. Charles HospitalComment on above:Performed By: #### 84779874, 1038168 ####Wilhelm [address] [address]Uylfpjzrnnqv Qn (U)0.2 {Tj'U}/dLNormal0.0-1.0St. [facility] HospitalComment on above: Performed By: #### 45491308, 1589067 ####[address] [address]RYI Auto Ql (U)1+AbnormalNegative St. Charles HospitalComment on above:Performed By: #### 45369466, 8912938 ####[address] [address]QXF LM.HPF (Urine sed) [#/Area]8-95Pnbqimzx6-3NlxpbwCincinnati Children's Hospital Medical CenterComment on above:Performed By: #### 57312923, 4490382 ####[address] [address]LU Spec DescCatheterNormalSt. Charles HospitalComhelen devos children's [facility] on above:Result Comment: Minicath specimenPerformed By: #### 3413233, 5902383, 3323728, 951140708, 78122433 #### [facility] [address] [place] [address]UGRRVVTSWTHltlquk By: Lisette Medina on 46-22-8747Jxpeyebyc Ql (U)Negative (12/20/22 5:18 PM)NormalNegativeVALIR [facility] [place] UA Auto SSClarity (U)Clear (12/20/22 5:18 PM)NormalClearFTUL[facility] [place] UA Auto SSColor (U)Straw *ABN* (12/20/22 5:18 PM)Invalid Interpretation CodeYellowVALIR REHABILITATION HOSPITAL [facility] [place] UA Auto SSEpithelial cells.squamous LM.HPF (Urine sed) [#/Area]0-2 /HPFNormal0-2/HPFVALIR REHAB[facility]ATION [facility] [place] UA Auto SS Glucose Test strip (U) [Mass/Vol]Negative (12/20/22 5:18 PM)NormalNegativeVALIR [facility] [place] UA Auto SSHemoglobin Ql (U)Trace *ABN* (12/20/22 5:18 PM)Invalid Interpretation CodeNegativeVALIR [facility] [place] UA Auto SSKetones (U) [Mass/Vol]Negative (12/20/22 5:18 PM)NormalNegativeVALIR [facility] [place] UA Auto SSLithium.plasma/[place]spinwall.RBC (Bld) [Mass ratio]0-3 /HPFNormal0-3/HPFVALIR REHABILITATION HOSP[facility] [place] UA Auto SSNitrite Ql (U)Negative (12/20/22 5:18 PM)NormalNegativeVALIR [facility] [place] UA Auto SSpH (U)5.5 *NA* (12/20/22 5:18 PM)Invalid Interpretation Code5.0 - 9.0[facility] UA Auto SSProtein (U) [Mass/Vol]Negative (12/20/22 5:18 PM)NormalNegativeVALIR REHAB[facility] [place] UA Auto SSSpecific gravity (U) [Rel density] <=1.005 *NA* (12/20/22 5:18 PM)Invalid Interpretation Code1.005 - 1.030[facility] [place] [facility] UA Auto SSUA Spec DescClean Catch (12/20/22 5:18 PM)NormalVALIR REHABILITATION HOSPITAL [facility] [place] UA Auto SSUrobilinogen Qn (U)0.8499306 {Tj'U}/dLNormal0.0 - 1.0 EU/dLVALIR REHABILITATION HOSPITAL [facility] [place] UA Auto SSWBC Auto Ql (U)1+ *ABN* (12/20/22 5:18 PM)Invalid Interpretation CodeNegativeVALIR [facility]ATION [facility] [place] UA Auto SSWBC LM.HPF (Urine sed) [#/Area]6-15 /HPFInvalid Interpretation Code0-5/HPFVALIR REHABILITATION [facility] [place] UA Auto SSXR Chest Single Viewon [id number] Chest Single ViewExam Date/Time: 12/20/2022 16:16 EDT [...] Ka,r in mGy = na DAP = [facility]XR Chest Single ViewExam Date/Time: 12/19/2022 21:38 [...] Ka,r in mGy = na DAP = [facility] HospitaleGFRon 74-31-7886PXW/1.73 sq M.predicted among non-blacks MDRD (S/P/Bld) [Vol rate/Area]43 mL/min/1.73 m2Low >=[address] [place], [place] [address]Comment on above:Order Comment: Order added by Discern Expert.Result Comment: Chronic kidney disease could be indicated at eGFR's of less than 60 mL/min/1.73m2. Kidney failure is indicated at less than 15 mL/min/1.73m2.Performed By: #### 3357196, 8011868, 6376963, 405627244, 26121258 #### [facility] [address] [place], [place] [address]Vqgi Diffon 80-70-4129Ztrmwsvwt/100 WBC (Bld)0.4 %Normal0.0-2.0 [facility] HospitalComment on above:Order Comment: Order Added by Discern Expert.Performed By: #### 5208774, 0815725, 1301970, 816932706, 63283332 #### [facility] [address] [place] [address]Snnkhrajo/Leukocytes Auto (Bld) [Pure # fraction]0.0 E9/LNormal 0.0-0.2FCincinnati Children's Hospital Medical CenterComment on above:Order Comment: Order Added by Discern Expert.Performed By: #### 9500326, 4115582, 1034545, 572799565, 11757939 #### [facility] [address] [place] [address]Tzelillayxu/100 WBC (Bld)1.6 %Normal0.0-8.0[facility] HospitalComment on above:Order Comment: Order Added by Discern Expert.Performed By: #### 6684115, 8401744, 3666123, 451931111, 38499868 #### [facility] [address] [place] [address]Vujlutaszof/Leukocytes Auto (Bld) [Pure # fraction]0.1 E9/L Normal0.0-0.5FCincinnati Children's Hospital Medical CenterComment on above:Order Comment: Order Added by Discern Expert.Performed By: #### 8158078, 0345792, 4063225, 648329188, 21451215 #### [facility] [address] [place] [address]Bfkvxtrcect/100 WBC (Bld)34.4 %Zytqcm25.0-50.0[facility] HospitalComment on above:Order Comment: Order Added by Discern Expert. Performed By: #### 2186873, 7111771, 0746986, 539614331, 70950956 #### [facility] [address] [place] [address]Qqjybqqnnpz/Leukocytes Auto (Bld) [Pure # fraction]1.2 E9/L Normal1.0-4.0[facility] HospitalComment on above:Order Comment: Order Added by Discern Expert.Performed By: #### 9928964, 1325360, 1665918, 540824162, 44962902 #### [facility] [address] [place], [place] [address]Hppgxsahc/100 WBC (Bld)12.8 %Normal4.0-14.0[facility] HospitalComment on above:Order Comment: Order Added by Discern Expert.Performed By: #### 2803452, 1163308, 9026668, 224367776, 84694010 #### [facility] [address] [place] [address]Fgocfmjay/Leukocytes Auto (Bld) [Pure # fraction]0.4 E9/LNormal 0.2-1.0St[facility] HospitalComment on above:Order Comment: Order Added by Discern Expert.Performed By: #### 3418598, 7058427, 1413368, 496510958, 30645371 #### [facility] [address] [place] [address]Rggtxhmjfzr/100 WBC (Bld)50.8 %Fejvcx04.0-75.0St[facility] HospitalComment on above:Order Comment: Order Added by Discern Expert. Performed By: #### 0994935, 3067723, 3959442, 873317740, 71147748 #### [facility] [address] [place] [address]Ncqqfipfrvu/Leukocytes Auto (Bld) [Pure # fraction]1.7 E9/LLow 2.0-7.5FCincinnati Children's Hospital Medical CenterComment on above:Order Comment: Order Added by Discern Expert.Performed By: #### 3421612, 5777232, 2580472, 587806124, 33627623 #### [facility] [address] [place] [address]VPNrb 64-95-7186Crije gap [Moles/Vol]10 mmol/LNormal6-16St. [facility] HospitalComment on above:Performed By: #### 2196639, 6537686, 6450056, 449659854, 31843347 #### [facility] [address], [place] [address]Mgsynyd [Mass/Vol]9.4 mg/dLNormal8.9-11.1FCincinnati Children's Hospital Medical CenterComment on above:Performed By: #### 3950425, 5651502, 6246159, 753577129, 18013711 #### [facility] [address] [place], [place] [address]Cxcfmxmb [Moles/Vol]111 mmol/QVjecmj185-285DmmbniSt. Charles HospitalComment on above:Performed By: #### 6062734, 3618666, 1039647, 441060091, 88705302 #### [facility] [address], [place] [address]DN5 [Moles/Vol]25 mmol/ALcpuan33-26AzbyziSt. Charles Hospital Comment on above:Performed By: #### 7897911, 8503498, 4775984, 905128273, 56700861 #### [facility] [address], [place] [address]Wgcuorxngu [Mass/Vol]1.4 mg/dLHigh0.5-1.3FCincinnati Children's Hospital Medical CenterComment on above:Performed By: #### 7532196, 7636069, 4525798, 906209784, 43193217 #### [facility] [address], [place] [address]Lgrdoyl [Mass/Vol]165 mg/jUBcvaft69-967KlkrorSt. Charles HospitalComment on above:Result Comment: If this glucose result represents a fasting glucose, interpretation should refer tothe following reference range: 55-99 mg/dLPerformed By: #### 2855461, 3623753, 7556052, 100888027, 34073654 #### [facility] [address] [place], [place] [address]Wzkbasyph [Moles/Vol]4.6 mmol/LNormal3.5-5.3FCincinnati Children's Hospital Medical CenterComment on above:Performed By: #### 9713144, 9247159, 3363637, 860267335, 29798145 #### [facility] [address], [place] [address]Hrldrf [Moles/Vol]141 mmol/KQebsxz176-930IpbcwzSt. Charles HospitalComment on above:Performed By: #### 2501235, 3404119, 9202041, 856071126, 61868063 #### [facility] [address], [place] [address]Xqju nitrogen [Mass/Vol]36 mg/dLHigh5-21St. Charles HospitalComment on above:Performed By: #### 8569027, 4546614, 6292332, 835241732, 92585181 #### [facility] [address] [place], [place] [address]Jwvo nitrogen/Creatinine [Mass ratio]26 No QfzvfEdnu16-50BxlxgrSt. Charles HospitalComment on above:Performed By: #### 2675575, 6827420, 3315133, 551175839, 43138427 #### [facility] [address] [place], [place] [address]NOQ w/ Auto Diffon 66-19-8600Qtbfpgaiowf distribution width (RBC) [Ratio]18.9 %High10.9-14.2FCincinnati Children's Hospital Medical CenterComment on above: Performed By: #### 1171504, 3481064, 2571621, 531031819, 99220415 #### [facility] [address] [place], [place] [address]Ctvjvuglkw (Bld) [Volume fraction]32.2 %Low34.0-46.0St. [facility] HospitalComment on above:Performed By: #### 3051171, 5383173, 6891378, 864753930, 76364605 #### [facility] [address], [place] [address]Bmxfnwfkuh (Bld) [Mass/Vol]10.8 g/dLLow12.0-16.0St. [facility] HospitalComment on above:Performed By: #### 7927646, 3581412, 7552344, 332822978, 34311994 #### [facility] [address] [place], [place] [address]MCH (RBC) [Entitic mass]33.5 edNaaerc24.0-34.0St. [facility] HospitalComment on above:Performed By: #### 6517156, 0146878, 6191746, 213046598, 99586765 #### [facility] [address] [place], [place] [address]HC (RBC) [Mass/Vol]33.4 g/lQQkqhfd15.4-36.0St. [facility] HospitalComment on above:Performed By: #### 7555418, 1403288, 5724371, 084364785, 28700556 #### [facility] [address] [place], [place] [address]MCV (RBC) [Entitic vol]100.5 oTMfhs45.0-100.0St. [facility] HospitalComment on above:Performed By: #### 6391529, 1863955, 4776907, 247792122, 53865656 #### [facility] [address] [place] [address]Dhpbngno mean volume (Bld) [Entitic vol]7.[address] fLNormal6.4-10.8 [address] HospitalComment on above:Performed By: #### 3888310, 7887239, 4660300, 080391276, 22165495 #### [facility] [address] [place] [address]Jxvsiygms (Bld) [#/Vol]204.0 E9/TPukddd060.0-500.0St. [facility] HospitalComment on above:Performed By: #### 8664981, 5651967, 9750669, 087082759, 68543480 #### [facility] [address] [place] [address]XYD (Bld) [#/Vol]3.2 E12/LLow4.3-5.9[facility] Comment on above:Performed By: #### 6614942, 9684795, 5221759, 263801501, 40629922 #### [facility] [address] [place], [place] [address]OEV corrected for nucl RBC Auto (Bld) [#/Vol]3.4 E9/LLow 4.0-11.0St. [facility] HospitalComment on above:Performed By: #### 6740357, 3513105, 7085805, 088696359, 45598047 #### [facility] [address] [place], [place] [address]VFXSVFVBWTcxdsqk By: SYSTEM SYSTEM on 99-24-9636Mhvfwbu [Mass/Vol]3.5 g/dLNormal3.3 - 5.0 gm/dLFTMC RemisolAlbumin/Globulin [Mass [...] [Mass/Vol]9.4 mg/dLNormal8.9 - 11.1 mg/dLFTMC RemisolChloride [Moles/Vol]111 mmol/KHqmawo373 - 111 mmol/LFTMC RemisolCO2 [Moles/Vol]25 mmol/L Uqjrod37 - 31 mmol/LFTMC RemisolCreatinine [Mass/Vol]1.4 mg/dLHigh0.5 - 1.3 mg/dLFT RemisolGFR/1.73 sq M.predicted among non-blacks MDRD (S/P/Bld) [Vol rate/Area]40 mL/min/1.73 m2Low>=59mL/min/1.73 m2[facility] Chem SGlobulin (S) [Mass/Vol]3.5 g/dLNormal1.4 - 4.0 gm/dLFT RemisolGlucose [Mass/Vol]165 mg/dL Morcwn41 - 199 mg/dLFT RemisolMagnesium [Mass/Vol]2.0 mg/dLNormal1.3 - 2.4 mg/dLFT RemisolPotassium [Moles/Vol]4.6 mmol/LNormal3.5 - 5.3 mmol/LFTMC RemisolProtein [Mass/Vol]7.0 g/dLNormal6.0 - 7.8 gm/dLFT RemisolSodium [Moles/Vol]141 mmol/OEidvai110 - 145 mmol/LFTMC RemisolTroponin I.cardiac [Mass/Vol]9.40 pg/mLLow10.10 - 27.10 pg/mLFT RemisolUrea nitrogen [Mass/Vol]36 mg/dLHigh5 - 21 mg/dLVALIR [facility]IT[facility] [place] RemisolUrea nitrogen/Creatinine [Mass ratio]26 mg/mg High10 - 20FT RemisolCOAGULATIONOrdered By: Evert Cordoba on 64-77-2200sMMC Coag (PPP) [Time]26.7 fBcosma65.1 - 36.5 second(s)[facility] Auto CoagINR Coag (PPP) [Relative time]1.0 {INR}Invalid Interpretation CodeFT Auto CoagPT Coag (PPP) [Time]11.5 sNormal9.4 - 12.5 second(s)[facility] Auto CoagConsent for Treatmenton 45-85-2655Rfmcimx for Treatment [id number]#1.00CD:[address] [place], [place] [address]HEMATOLOGYOrdered By: SYSTEM SYSTEM on 27-35-4492Vsnysgtnu/100 WBC (Bld) 0.4 %Normal0.0 - 2.0 %[facility] HemeAutoSSBasophils/Leukocytes Auto (Bld) [Pure # fraction]0.0 E9/LNormal0.0 - 0.2 E9/LFTMC HemeAutoSSEosinophils/100 WBC (Bld)1.6 %Normal0.0 - 8.0 %[facility] HemeAutoSSEosinophils/Leukocytes Auto (Bld) [Pure # fraction]0.1 E9/LNormal0.0 - 0.5 E9/LFTMC HemeAutoSSLymphocytes/100 WBC (Bld) 34.4 %Fxfqie86.0 - 50.0 %[facility] HemeAutoSSLymphocytes/Leukocytes Auto (Bld) [Pure # fraction]1.2 E9/LNormal1.0 - 4.0 E9/LFTMC HemeAutoSSMonocytes/100 WBC (Bld) 12.8 %Normal4.0 - 14.0 %[facility] HemeAutoSSMonocytes/Leukocytes Auto (Bld) [Pure # fraction]0.4 E9/LNormal0.2 - 1.0 E9/LFTMC HemeAutoSSNeutrophils/100 WBC (Bld) 50.8 %Utcovr30.0 - 75.0 %[facility] HemeAutoSSNeutrophils/Leukocytes Auto (Bld) [Pure # fraction]1.7 E9/LLow2.0 - 7.5 E9/LFTMC HemeAutoSSHEMATOLOGYOrdered By: Evert Cordoba on 17-49-0353Pbbcbjqyhee distribution width (RBC) [Ratio]18.9 %High 10.9 - 14.2 %[facility] HemeAutoSSHematocrit (Bld) [Volume fraction]32.2 %Low34.0 - 46.0 %[facility] HemeAutoSSHemoglobin (Bld) [Mass/Vol]10.8 g/dLLow12.0 - 16.0 gm/dL [facility] HemeAutoSSMCH (RBC) [Entitic mass]33.5 cdNrunkk89.0 - 34.0 pgFTULSA SPINE & [facility] [place] HemeAutoSSMCHC (RBC) [Mass/Vol]33.4 g/xFAjuyvq73.4 - 36.0 gm/dLFT HemeAutoSS MCV (RBC) [Entitic vol]100.5 kZLtwc25.0 - 100.0 fLVALIR [facility] [place] HemeAutoSSPlatelet mean volume (Bld) [Entitic vol]7.0 fLNormal6.4 - 10.8 fLVAL[facility] [place] HemeAutoSSPlatelets (Bld) [#/Vol]204.0 E9/HPoiqfb056.0 - 500.0 E9/[facility] HemeAutoSSRBC (Bld) [#/Vol] 3.2 E12/LLow4.3 - 5.9 E12/[facility] HemeAutoSSWBC corrected for nucl RBC Auto (Bld) [#/Vol]3.4 E9/LLow4.0 - 11.0 E9/[facility] HemeAutoSSHep Func Panelon 12-19-2022 Albumin [Mass/Vol]3.5 g/dLNormal3.3-5.0[facility] HospitalComment on above:Performed By: #### 3097330, 8624025, 5463493, 715438412, 97605173 #### [facility] [address] [place], [place] [address]Uxzixxs/Globulin (S) [Mass conc ratio]1.0Low1.1-2.2Fisher [facility] CenterComment on above:Performed By: #### 1673705, 9357520, 6711933, 335905075, 11566482 #### [employer] [facility] [address] [place], [place] [address]WRL [Catalytic activity/Vol]110 Int._Unit/DZnah87-36ZnljgfSt. Charles HospitalComment on above:Performed By: #### 1290429, 3158955, 0173835, [id number], [id number] #### [facility] [address], [place] [address]MNX No additional P-5'-P [Catalytic activity/Vol]20 Int._Unit/L Normal6-46St. Charles HospitalComment on above:Performed By: #### [id number], 7126719, 1557699, [id number], [id number] #### [facility] [address] [place] [id number] [Catalytic activity/Vol]19 Int._Unit/LNormal5-43St. Charles HospitalComment on above:Performed By: #### [id number], 0614758, 1961908, [id number], [id number] #### [facility] [address], [place] [address]Zpxdifnli [Mass/Vol]0.4 mg/dLNormal0.0-1.1FCincinnati Children's Hospital Medical CenterComment on above:Performed By: #### [id number], 2815783, 6155061, [id number], [id number] #### [facility] [address] [place] [address]34[address]Eapvzifyb.direct [Mass/Vol]0.1 mg/dLNormal0.1-0.4FCincinnati Children's Hospital Medical CenterComment on above:Performed By: #### [id number], 9298241, 0143134, [id number], [id number] #### [facility] [address] [place] [address]34[address]Hvklglbfs.indirect [Mass or moles/Vol]0.3 mg/dLNormal0.1-0.9 [facility] HospitalComment on above:Performed By: #### [id number], 7525145, 9476976, [id number], [id number] #### [facility] [address] [place] [address]Jwndrkof (S) [Mass/Vol]3.5 g/dLNormal1.4-4.0St. Charles HospitalComment on above:Performed By: #### [id number], 8355753, 4185323, [id number], 10471939 #### [facility] [address] [place] [address]Wkzxoqg [Mass/Vol]7.0 g/dLNormal6.0-7.8St. Charles HospitalComment on above:Performed By: #### 4442233, 6762983, 0840553, [id number], [id number] #### [facility] Laboratory [address], [place] [address]Huctldypar - Microbiology and Antimicrobial susceptibility Ordered By: Jeaneth Morfin on 68-88-7032Eublktki identified Cx Nom (U)>100,000 cfu/ml Gram Negative Glynn Disc Recordist speciesSumma HealthMagnesium on 00-18-5268Zkdghlgek [Mass/Vol]2.0 mg/dLNormal1.3-2.4FCincinnati Children's Hospital Medical CenterComment on above:Performed By: #### 1399126, 4379090, 7738891, [id number], [id number] #### [facility] Laboratory [address], [place] [address]Qkravek Recordon 86-80-1355Jcihhpx Record [id number]#1.00CD:127NormalSt. Charles HospitalPT & PTTon 57-33-0619pZAE Coag (PPP) [Time]26.7 second(s)Xcppjy78.1-36.5 [facility] Charles HospitalComment on above:Result Comment: Parameter 15 days [...] the same coagulation reagent and instrumentation as [facility]. Currently there are no coagulation studies available worldwide for children to 14 days, andno normal ranges. Heparin therapeutic range (represented by Anti-Factor Xa activity of 0.2 - 0.4 U/mL) corresponds to PTT of 56.6 - 109.0 sec.Performed By: #### 3074685, 8214724, 0222063, [id number], 50672226 #### [facility] Laboratory [address], [place] [address]YGD Coag (PPP) [Relative time]1.0 {INR}Invalid Interpretation CodeFishKennedy Krieger InstituteComment on above:Result Comment: INR results are specifically intended to assess patients stabilized on long-term Anticoagulation therapy suggested INR?s ?Less Intensive Anticoagulation? 2.0 ? 3.0 Conventional Range 3.0 ? 4.5Performed By: #### 8204321, 8437828, 2778119, [id number], 37107309 #### [facility] Laboratory [address], [place] [address]WV Coag (PPP) [Time]11.5 second(s)Normal9.4-12.5FCincinnati Children's Hospital Medical CenterComment on above:Result Comment: 15 days [...] the same coagulation reagent and instrumentation as [facility]. Currently there are no coagulation studies available worldwide for children to 14 days, andno normal ranges.Performed By: #### 5867251, 1405768, 3634652, 817855785, 57942907 #### [facility] Laboratory [address], [place] [address]Olj-Ixhxrqg Noteon 48-45-5023Jxc-Arrival NotePre-Arrival Summary Name: aram freed Current Date: 12/19/2022 20:42:25 EDT Gender: Female Date of : Age: 72 Pre-Arrival Type: EMS ETA: 12/19/2022 20:55:00 EDT Primary Care Physician: Presenting Problem: gen. weakness Pre-Arrival User: Javier Flood RN Referring Source: Location: [place] Completion Date/Time: 12/19/2022 20:25:00 [facility] Emergency Department Pre-Hospital Report Form Vital Signs: 140/83, 89pulse, 96% Pre-Hospital Report: generalized weakness. awaiting bed at [facility]. pt wanted seen . Treatment in Route: Response to Treatment: Misc. Issues:NormalSt. Charles HospitalTroponin 0 Hr.on 12-19-2022 Troponin I.cardiac [Mass/Vol]9.40 pg/mLLow10.10-27.10[facility] Comment on above:Result Comment: The 95% CI (Confidence Interval) PPV (Positive Predictive Value) for myocardial infarction in females is 38 pg/mL, in males 51 pg/mL. The results should be used in conjunction with clinical conditions of myocardial infarction. (Access High Sensitivity Troponin I Instructions For Use, Gaby Marisol, November 2017)Performed By: #### [id number], 0421002, 7521970, [id number], 84184561 #### [facility] Laboratory [address], [place] [address]UM With Cult Reflexon 42-59-0782Wjobhkxg LM Ql (Urine sed)2+ /HPFAbnormalTraceSt. Charles HospitalComment on above:Performed By: #### 1336090, 4758141, 7308445, 558282953, 87443315 #### [facility] Laboratory [address], [place] [address]Hijnmzasj Ql (U)NegativeNormalNegativeSt. Charles HospitalComment on above:Performed By: #### 0510069, 6304459, 9687971, 282668175, 20487293 #### [facility] Laboratory [address], [place] [address]Xncxikl (U)CLEARNormalClearNovant Health Forsyth Medical Centerer [facility] CenterComment on above:Performed By: #### 8199957, 8805815, 9606681, 361526098, 12578665 #### [facility] Laboratory [address] [place] [address]Dnxbl (U)YELLOWNormalYellowSt. Charles HospitalComment on above:Performed By: #### 3936004, 4910807, 5085263, 163199968, 16269403 #### [facility] Laboratory [address] [place] [address]Rrxkkvaecv cells.squamous LM.HPF (Urine sed) [#/Area]0-2Normal 0-2Fisher [facility] Medical CenterComment on above:Performed By: #### 9891135, 8071637, 0434035, 081133731, 69675703 #### [facility] [address] [place] [address]Lceeqyx Test strip (U) [Mass/Vol]NegativeNormalNegativeSt. Charles HospitalComment on above:Performed By: #### 5673702, 2688607, 3074422, 478227314, 05844607 #### [facility] [address] [place] [address]Nbjnoafeza Ql (U)NegativeNormalNegativeSt. Charles HospitalComment on above:Performed By: #### 6885979, 8797652, 2496860, 935442937, 86459467 #### [facility] [address] [place] [address]Upfkjts (U) [Mass/Vol]NegativeNormalNegativeSt. Charles HospitalComment on above:Performed By: #### 2796339, 4283704, 9222048, 448006380, 73856517 #### [facility] [address] [place] [address]Gctoggo.plasma/Aspinwall.RBC (Bld) [Mass ratio]1-6Tdbxci8-7Jbiiyu [facility] CenterComment on above:Performed By: #### 5875787, 0274991, 7237162, 642419753, 43523834 #### [facility] Laboratory [address] [place] [address]Ronfhjy Ql (U)PositiveAbnormalNegativeSt. Charles HospitalComment on above:Performed By: #### 8966750, 9150850, 9730260, 192843676, 97421292 #### [facility] [address] [place] [address] 99[address]iS (U)6.0 [pH]Invalid Interpretation Code5.0-9.0St. Charles HospitalComment on above:Performed By: #### 6666849, 9039202, 0938079, 490860628, 40184928 #### [facility] [address] [place] [address]Cbpgkzu (U) [Mass/Vol]NegativeNormalNegativeSt. Charles HospitalComment on above:Performed By: #### 2012665, 1074422, 6064735, 119621704, 91037338 #### [facility] Laboratory [address] [place] [address]Iwvdhjhj gravity (U) [Rel density]1.025Invalid Interpretation Code1.005-1.030St. Charles HospitalComment on above:Performed By: #### 8827538, 6821618, 5584477, 374823307, 71406099 #### [facility] [address] [place] [address]Jasqtkqxjaoi Qn (U)0.2 {Tj'U}/dLNormal0.0-1.0St. Charles HospitalComment on above:Performed By: #### 3196861, 2935872, 1880117, 445339977, 87064981 #### [facility] Laboratory [address] [place] [address]TEJ Auto Ql (U)TRACEAbnormalNegativeFisher [facility] Comment on above:Performed By: #### 4592011, 8558592, 3486178, 000243669, 87507609 #### [facility] Laboratory [address], [place] [address]EEH LM.HPF (Urine sed) [#/Area]4-4Dzhbwa0-3Rkczul [facility] CenterComment on above:Performed By: #### 8326024, 1353849, 8940655, 071574647, 53665964 #### [facility] Laboratory [address], [place] [address]IOKUKEPIALDnjaldz By: Evert Cordoba on 83-30-1916Awfppilv LM Ql (Urine sed)2+ /HPFInvalid Interpretation CodeTrace/HPFFT UA Auto SS Bilirubin Ql (U)Negative (12/19/22 10:25 PM)NormalNegativeVAL[facility] UA Auto SSClarity (U)Clear (12/19/22 10:25 PM)NormalClearFTULSA SPINE [facility] UA Auto SSColor (U)Yellow (12/19/22 10:25 PM)NormalYellowVALIR REHABILITATION [facility] [place] [facility] UA Auto SSEpithelial cells.squamous LM.HPF (Urine sed) [#/Area]0-2 /HPFNormal0-2/HPFFTMC UA Auto SSGlucose Test strip (U) [Mass/Vol]Negative (12/19/22 10:25 PM)NormalNegativeVALIR [facility] UA Auto SSHemoglobin Ql (U)Negative (12/19/22 10:25 PM)NormalNegativeVALIR [facility] [place] UA Auto SSKetones (U) [Mass/Vol]Negative (12/19/22 10:25 PM)NormalNegativeVAL[facility] UA Auto SSLithium.plasma/Aspinwall.RBC (Bld) [Mass ratio]0-3 /HPFNormal0-3/HPFFTMC UA Auto SSNitrite Ql (U)Positive *ABN* (12/19/22 10:25 PM)Invalid Interpretation CodeNegativeVALIR [facility] UA Auto SSpH (U)6.0 *NA* (12/19/22 10:25 PM)Invalid Interpretation Code5.0 - 9.0FTMC UA Auto SSProtein (U) [Mass/Vol]Negative (12/19/22 10:25 PM)NormalNegativeVAL[facility] UA Auto SSSpecific gravity (U) [Rel density]1.025 *NA* (12/19/22 10:25 PM)Invalid Interpretation Code1.005 - 1.030[facility] UA Auto SSUA Spec DescCatheter 1 (12/19/22 10:25 PM)NormalVALIR REHABILITATION [facility] UA Auto SSComment on above:Result Comment: Minicath specimenUrobilinogen Qn (U)0.8308994 {Tj'U}/dLNormal0.0 - 1.0 EU/dLVALIR REHAB[facility]ITATION [facility] UA Auto SSWBC Auto Ql (U)Trace *ABN* (12/19/22 10:25 PM)Invalid Interpretation CodeNegativeVALIR [facility] UA Auto SSWBC LM.HPF (Urine sed) [#/Area]0-5 /HPFNormal0-5/HPFVALIR REHABILITATION [facility]OSP[facility] [place] UA Auto SSeGFRon 12-19-2022 GFR/1.73 sq M.predicted among non-blacks MDRD (S/P/Bld) [Vol rate/Area]40 mL/min/1.73 m2Low>=59St. Charles HospitalComment on above:Order Comment: Order added by Discern Expert.Result Comment: Chronic kidney disease could be indicated at eGFR's of less than 60 mL/min/1.73m2. Kidney failure is indicated at less than 15 mL/min/1.73m2.Performed By: #### 8482953, 7471468, 1041485, 153446685, 93740555 #### [facility] Laboratory [address], [place] [address]XU Spine Lumbar w/o Contraston 10-96-2218FX Spine Lumbar w/o ContrastExam Date/Time: 12/17/2022 10:41 [...] Zaheer Arriaga M.D. Transcribed by: TOLU Technologist: [facility] Tri[facility] Medical CenterConsent for Treatmenton 33-21-0743Ykoeblw for Treatment [id number]#1.00CD:127Ad[facility] County HospitalDischarge Instructionson 23-49-2275Ggzvnqddz Instructions [id number]#1.00CD:127NormalFisher [facility] Clinical Summaryon 83-78-3761JP Clinical Summary [address] [address] ED Clinical Summary Person Information Name: MARLEN STALEY/Savita Age: 72 Years : 1950 Sex: Female Language: Mohawk PCP: Rickey Askew MD Marital Status: Phone: [phone] MRN: Visit Id: Visit Reason: Weakness or [...] 12/17/2022 14:42:45 12/17/2022 14:42:45 12/17/2022 14:42:45 ADDRESS: [address] [place] [address] [address] [place] [id number] PHYS DOC NOTES: MEDICAL INFORMATION: Prescriptions Given: New Medications [facility], [address] [place], [place] [id number], [phone] oxycodone (oxyCODONE 5 mg Tab) 1 Tablets [...] up: With: Address: When: JOSÉ ANTONIOMARY ELLEN OVIEDO[address] [address] Business (1) In 3 days 12/20/2022 With: Address: When: Gavino Lugo [address] [place] [address] Business (1) In 3 days 12/20/2022 With: Address: When: Rickey Askew [address] [place] [address] Business (1) In 3 days 12/20/2022 DIAGNOSIS: Fall; Lumbar compression fractureNormalFisher Galveston Medical CenterED Note-Physicianon 19-05-7594ME Note-PhysicianBasic Information Time Seen: Gui Scruggs PA-C [...] day(s), # 15 tab(s), Refills(s) 0, Pharmacy: [facility], 168, cm, 12/17/22 10:29:00 EDT, Height/Length [...] VARGAS In 3 days 12/20/[address] [address]- [facility] (1) Additional Instructions: Gavino Lugo In 3 days 12/20/2022 EDT [address] [place] [address]- Business (1) Additional Instructions: Rickey Askew In 3 days 12/20/2022 EDT [address] [place] [address]- Business(1) Additional Instructions: Patient Education Lumbar Spine Fracture Attestation Patient seen and evaluated by the physician assisted living assistant. Attending physician was present in the emergency department and supervised care. This visit was performed by both the physician and an APC. I performed all aspects of the MDM as documented. This report was transcribed using voice recognition software. Every effort was made to ensure accuracy, however, inadvertently computerized pipe fitter street service mistakes may be present. Appropriate healthcare PPE [...] breast Multiple closed fra (more content not included)...[facility] County HospitalComment on above:Result Comment: Electronically Signed By: Kael SIMPSONGui\.br\Date and Time Signed: 12/17/2312:40 EDT\.br\Electronically Co-Signed By: Jeffery Murphy DO\.br\Date and Time Co-Signed: 12/17/22 18:34 EDTED Patient Education Noteon 97-12-4153MU Patient Education NoteOrthopedics Lumbar Spine Fracture A [...] these instructions at home: Medicines ? Take gkuj-zao-lqbvkal and prescription medicines only as told by [...] fried or sweet foods. ? Take an ggww-yfx-whrjoqu or prescription medicine for constipation. If you [...] condition is renae (more content not included)... [facility] Patient Summaryon 83-75-5049TE Patient Summary [address] [address] Patient Discharge Instructions Person Information Name: MARLEN STALEY Age: 72 Years Arrival Date: 12/17/2022 10:19:35 Discharge Diagnosis: Fall; Lumbar compression fracture Primary Care Physician: Rickey Askew MD Provider Information Primary Provider: Jeffery Murphy DO Advanced Manager Diversity:Gui Scruggs PA-C The exam and treatment you received in the Emergency Department were for an urgent problem and are not intended as complete care. It is important that you follow up with a doctor, nurse practitioner,or physician?s assisted living assistant for ongoing care. If your symptoms [...] Instructions: With: Address: When: JOSÉ ANTONIO VARGAS [address] [place] [address] Business (1) In 3 days 12/20/2022 With: Address: When: Gavino Lugo [address] [place] [address] Business (1) In 3 days 12/20/2022 With: Address: When: Rickey Askew [address] [place] [address] Business (1) In 3 days 12/20/2022 In the event that this physician does not participate in your insurance network, please consult with your insurance company to find a nearby participating provider. Patient Education Materials: Lumbar Spine Fracture A MESSAGE TO ALL PATIENTS REGARDING OPIOIDS PRESCRIPTION OPIOIDS: WHAT YOU NEED TO KNOW Prescription opioids can be used to help relieve tsfmasrc-ta-bewtdr pain and are often prescribed following a [...] your community drug take- back program or [employer] mail-back program, or flush them down the toilet, following guidance from the Food and Drug Administration (www.fda.gov/Drugs/ResourcesForYou). ? Visit (more content not included)...[facility] County HospitalNursing Home Recordson 02-23-2093[facility] Home Records [id number]#1.00CD:127NoMain Campus Medical CenterXR Hip 2-3 Views Right + Pelvison 78-23-6234IG Hip 2-3 Views Right + PelvisExam Date/Time: [...] 12/17/2022 12:37 EDT by Pipo Mayfield DO [facility] HealthXR Spine Lumbosacral 2 or 3 Viewson 78-03-2856IE Spine Lumbosacral 2 or 3 ViewsExam Date/Time: [...] FINDINGS: Mild compression fracture of L1 and hjqm-qz-klavqrkr compression fracture of L2. No significant interval [...] Ka,r in mGy = na DAP = [facility] Medicine Office/Clinic Noteon 53-87-9605Djnjxl Medicine Office/Clinic NoteHistory of Present Illness Discharge from [facility] 12/15 ADMIT from [facility] 11/02?16 multiple falls and increasing weakness, neighbor did not feel she was safe at home. currently admitted to [facility] with weakness, dementia. Was unable [...] Daily, # 90 tab(s), Refills(s) 4, Pharmacy: [facility], 167, cm, 11/01/22 20:02:00 EDT, Height/Length Dosing, 90.3, kg, 11/01/22 20:02:00 EDT, Weight Dosing Home Health Umtb-fe-Wrrx Encounter Type: Medicare Reason for Znqg-kg-Nwvr (Diagnosis): DISCHARGE DIAGNOSIS Skilled Encounter Detail I certify that I conducted and documented that a ktdr-hm-uenh (F2F) encounter with the consumer occurred within the 90 days prior to the home health services start of care date, or within 30 days following the start of care date (inclusive of the start of care date), preceding the certification of medical necessity. Fci: Yes Physical Therapy: Yes Occupational Therapy: Yes Speech Therapy: _ Search Engine Optimization Strategist: _ Implementation Manager: _ Need for Home Health Services I certify based on my findings that... a. Home health services are medically necessary for this patient, including either intermittent halfway and/or therapy, AND b. The patient cannot [...] Vitamin D deficiency H (more content not included)...[facility] County HospitalComment on above:Result Comment: Electronically Signed By: Sammy QUEZADA MD\.br\Date and Time Signed: 12/14/22 16:36 EDTONC - Otheron 46-43-3514KSW - Other [id number]#1.00CD:127Ad[facility] County HospitalON - Otheron 15-51-2818JPR - Other [id number]#1.00CD:[address] [place], [place] [address]ON - Otheron 73-17-4011FXT - Other [id number]#1.00CD:[address] [place], [place] [address]XR Pelvis 1 or 2 Viewson 19-66-0828ZQ Pelvis 1 or 2 ViewsExam Date/Time: 11/20/2022 [...] Kamatt in mGy = na DAP = naNorFostoria City HospitalRAD - MISCon 61-62-2871CSE - MISC [id number]#1.00CD:127[facility] County HospitalDischarge Documentationon 84-68-3470Ixoyyzhpr Documentation [id number]#1.00CD:127NormProMedica Memorial Hospital Medicine Office/Clinic Noteon 92-70-4072Ewpumv Medicine Office/Clinic NoteHistory of Present Illness [facility] ADMIT from [facility] 11/02?16 multiple falls and increasing weakness, neighbor did not feel she was safe at home. currently admitted to [facility] with weakness, dementia. Was unableto [...] anastrozole, Vit B12 Pt brought in her [facility] [employer] [facility] 3. HTN (hypertension) (I10: Essential (primary) [...] 11 refills ergocalciferol 50,000 intl units Cap, 39014 International_Unit= 1 cap(s), Oral, q7day Kisqali (200 [...] Christian Mckeon MD 11/02/2022 13:[address] Charles HospitalComment on above:Result Comment: Electronically Signed By: PILAR HANKS, Sammy\.br\Date and Time Signed: 11/06/22 22:21 EDT Message from Medicareon 57-72-8566Hstxffz from Medicare [id number]#1.00CD:[address] [place], [place] [address]Transfer Documentson 58-86-2627Wdzmctex Documents [id number]#1.00CD:[address] [place], [place] [address]Insurance Correspondence Officeon 27-85-6712Rkxzmcstd Correspondence [id number]#1.00CD:[address] [place], [place] [address]Inpatient Clinical Summaryon 56-12-9754Narownpcw Clinical Summary [place] [id number] Clinical Summary Person Information: Name: MARLEN STALEY Age: 72 Years : 1950 Sex: Female PCP: Rickey Askew MD Marital Status: Phone: [phone] Race: White Ethnicity: Non- or Language: Mohawk Visit Id: Visit Reason: Weakness or fatigue; Trauma - minor; Multiple falls; WEAKNESS, CHEST PAIN Speciality: Acuity: Enc Type: Observation Med Service: Medical Arrival: 11/01/2022 19:53:41 Discharge: Dispo Type: Admitted as IP to this Hosp Address: [address] [place] [address] [address] [place] [phone] Provider Notes: Addendum by Wyatt Murray MD [...] With: Address: When: Hollis MERRILL [address] [facility]ENTERArchySELECT [facility], [address], [facility] [address] [place] [address] Business (1) Comments: Urinary retnetion w/dooley With: Address: When: Gavino Lugo [address] [place] [address] Business (1) Comments: Call for followup appointment in 4 weeks for repeat pelvis xray With: Address: When: Rickey Askew [address] [place] [address] Business (1) Type Location Start [facility] Secured Appointment Type Secured Location 11/22/2022 2:15 PM 11/22/2022 2:30 PM Confirmed Patient Education Information[facility]on [facility]22 Inpatient Patient Summary [facility] [address] [place], [place] [address] Patient Discharge Instructions PERSON INFORMATION [...] up: With: Address: When: Hollis MERRILL [address] [facility], [address], [address] [address] Business (1) Comments: Urinary retnetion w/spencer With: Address: When: Gavino Lugo [address] [place] [address] Business (1) Comments: Call for followup appointment in 4 weeks for repeat pelvis xray With: Address: When: Rickey Askew [address] [place] [address] Business (1) In the event [...] YOUR HOSPITAL STAY New Medications [facility], [address] [place] [id number], [phone] ergocalciferol (ergocalciferol 50,000 intl units Cap) 1 [...] Dose: Next Dose: ri (more content not included)...[facility] HospitalInpatient Patient Summary MARLEN STALEY :1950 Visit [...] the operative site, Persistent vomiting [facility]uled Follow-Up Appointments 2022 2:15 PM EDT With: Senthil Caldera DO Where: [facility] New Follow Up Appointments after Discharge Follow Up with Gavino Lugo When: Comments: Call for followup appointment in 4 weeks for repeat pelvis xray Where: [address] [place], [place] [address] Data (1) Follow Up with Rickey Askew When: In 0 days Where: [address] [place] [address]- Business (1) Medications What How Much When Why Instructions Next Dose New ergocalciferol (ergocalciferol 50,000 intl units Cap) 1 Capsules By Mouth Every 7 days Pickup at [facility] Unchanged anastrozole (anastrozole 1 mg [...] Once a day (at bedtime) Pharmacy Information [facility]: [address] [place], [place] [phone] Test Results CBC BMP WBC: 6.6 E9/L (11/01/22 22:01:00) Glucose Lvl: 130 mg/dL (11/01/22 22:01:00) RBC: 3.7 E12/L Low (11/01/22 22:01:00) BUN: 26 mg/dL High (11/01/22 22:01:00) HGB: 12.1 gm/dL (11/01/22 22:01:00) Creatinine: 1.3 mg/dL (11/01/22 22:01:00) Hct: 36.5 % (11/01/22 22:01:00) BUN (more content not included)...[facility] Interdisciplinary Note - Case Manageron 96-81-9993Xlugzdgidryhzyhtz Note - Case ManagerCRM to room to [...] Precert is back and can go to tcu/[facility] BED 56[facility] Comment on above:Result Comment: Electronically Signed By: Florence Ortega\.br\Date and Time Signed: 11/04/22 13:07 EDTCHEMISTRYOrdered By: SYSTEM SYSTEM on 043156-rgfiasbsfxgexc D3 [Mass/Vol]ng/mLLow30.0 - 100.0 ng/mLVALIR REHABILITATION [facility] RemisolInterdisciplinary Note - Case Manageron 11-33-5686Esjieycwwzxjmkecw Note - Case ManagerCRM to room to [...] info, white board updated. Anticipated DC onceSNF arrangedAdams County HospitalComment on above:Result Comment: Electronically Signed By: Florence Ortega\.br\Date and Time Signed: 11/03/22 10:38 EDTProgress Note-Physicianon 21-22-6096Wsjberst Note-PhysicianBasic Information This is a 72-year-old female [...] q6hr, PRN ergocalciferol 50,000 intl units Cap, 17582 unit(s)= 1 cap(s), Oral, q7day hydrALAZINE 20 mg/mL Inj, 10 mg= 0.5 mL, IV Push, q6hr, PRN kisqali 200mg, Normal Patient Dose, Oral, q24hr lisinopril 10 mg Tab, 10 mg= 1 tab(s), Oral, Daily Lovenox 40 mg/0.4 mL SC Billie, 40 mg= 0.4 mL, SubCutaneous, Daily [place] 5/325 Tab, 1 tab(s), Oral, q6hr, PRN [...] she can follow up out pt w/urologyNormalSt. Charles HospitalComment on above:Result Comment: Electronically Signed By: Trevor HANKS, Wyatt\.br\Date and Time Signed: 11/03/22 08:08 EDTRPR with Conf Rfxon 27-72-1856Rclphs Ab RPR Ql (S)Non-ReactiveInvalid Interpretation CodeNon ReactiveSt. Charles HospitalComment on above: Result Comment: Performed at: [facility] [address] [id number] PhD [place] AvelarPerformed By: #### [id number], 8261667, 4738822, [id number], [id number] #### [facility] Laboratory [address] [place] [address]Vjsygle D 25 Hydroxyon 560852-lsihnitxgdmuxu D3 [Mass/Vol]ng/mLLow30.0-100.0St. Charles HospitalComment on above:Result Comment: Vitamin D deficiency has been defined as a level of serum 25-OH vitamin D less than 20 ng/mL (1,2) by the [place] of Medicine and an Endocrine Society practice guideline. The Endocrine Society further defined vitamin D insufficiency as a level between 21 and 29 ng/mL (2). 1. IOM ([place] of Medicine). 2010. Dietary reference intakes for calcium and D. [place]: The National Academies Press. 2. Katlin MF, Taylor [place], Jarad DUKE, et al. Evaluation, treatment, and prevention of vitamin D deficiency: an Endocrine Society clinical practice guideline. JCEM. 2010; 96 (7):1911-30.Performed By: #### [id number] ####[facility] [address] [place], [place] [address]TC Pelvis w/o Contraston 27-99-8150MZ Pelvis w/o ContrastExam Date/Time: 11/02/2022 13:54 EDT [...] No Oral contrast amount in ml's: 0NormalFisher [facility] Clinical Summaryon 52-47-1729DZ Clinical Summary [address] [address] ED Clinical Summary Person Information Name: MARLEN STALEY/Savita Age: 72 Years : 1950 Sex: Female Language: Mohawk PCP: Rickey Askew MD Marital Status: Phone: [phone] MRN: Visit Id: Visit Reason: Weakness or fatigue; Trauma - minor; Multiple falls; WEAKNESS, CHEST PAIN Speciality:Acuity: 2 Enc Type: Observation Med Service: Emergency Arrival: 11/01/2022 19:53:41 Discharge: LOS: 000 07:19 Checkin: 11/01/2022 19:53:41 Checkout: 11/02/2022 03:12:35 Dispo Type: Admitted as IP to this [facility] EVENTS: Event Name Event Status Request [...] 11/02/2022 03:12:35 11/02/2022 03:12:35 11/02/2022 03:12:35 ADDRESS: [address] [place] [address] [address] EL[place]DO [place] [phone] PHYS DOC NOTES: MEDICAL INFORMATION: Prescriptions Given: [...] deep vein thrombosis (DVT) prophylaxis; Multiple falls [facility] CenterED Note-Physicianon 06-99-9152FI Note-Physician Radiologist has read the x-ray of the sacrum and there is discrepancy. He is reading he has a left pubic rami fracture. The patient has been admitted to the hospital.The hospitalist notified.[facility] HospitalComment on above:Result Comment: Electronically Signed By: Trell Avendano, Alok Dexter\.br\Date and Time Signed: 11/02/2306:41 EDTED Note-PhysicianBasic Information Time Seen: Kelly Meredith DO 11/01/2022 20:01 Chief Complaint pt to ED via [facility] with c/o chest bruise from fall earlier today. c/o increasing weakness. denies thinners or hitting head with earlier fall. denies PMH. hx of DM. pt A&Ox4 upon ED arrival, applied to manager monitoring. History of Present Illness Patient is a [...] of Problems Differential Diagnosis: [] [facility] Data External documents reviewed: [] [...] furosemide 40 mg Ta (more content not included)...[facility] HospitalComment on above:Result Comment: Electronically Signed By: Kelly Meredith DO.johnnie\Date and Time Signed: 11/02/22 00:27 EDTED Patient Education Note on 21-89-6652SU Patient Education NoteNoProMedica Memorial Hospital CenterED Patient Summaryon 90-16-0695QT Patient Summary [place] [id number] Patient Discharge Instructions Person Information Name: MARLEN STALEY Age: 72 Years Arrival Date: 11/01/2022 19:53:41 Discharge Diagnosis: 1:Generalized weakness; 2:HTN (hypertension); 3:Hypercholesteremia; 4:History of breast cancer; 5:On deep vein thrombosis (DVT) prophylaxis; Multiple falls Primary Care Physician: Rickey Askew MD Provider Information Primary Provider: Kelly Meredith DO Advanced Manager Diversity:None The exam and treatment you received in the Emergency Department were for an urgent problem and are not intended as complete care. It is important that you follow up with a doctor, nurse practitioner,or physician?s assisted living assistant for ongoing care. If your symptoms [...] opioids can be used to help relieve uielwufi-cb-cewgct pain and are often prescribed following a [...] your community drug take- back program or [employer] mail-back program, or flush them down the toilet, following guidance from the Food and Drug Administration (www.fda.gov/Drugs/ResourcesForYou). ? Visit www.cdc.gov/drugoverdose to learn about the risks of opioids abuse and overdose. ? If you believe you may be struggling with addiction, tell your health infant caregiver and ask for guidance or call SAMHSA?S National Helpline at 8-263-065-ZZIB. Source: US Department of Health and Human Servi (more content not included)... [facility] Traumaon 02-19-8386YD Trauma [id number]#1.00CD:127NoMain Campus Medical CenterFolateOrdered By: SYSTEM SYSTEM on 07-62-8727Lmagxl [Mass/Vol]11.4 ng/mL Normal>=6.7FT[facility] RemisolComment on above:Performed By: #### [id number], 1450880, 3942193, 053556698, 12719154 #### [facility] [address] [place], [place] [address]Iaqiupwar Correspondence Officeon 35-08-3647Lenprshqx Correspondence [id number]#1.00CD:127Normal [facility] CenterInterdisciplinary Note - Case Manageron 11-02-2022 Interdisciplinary [...] spouse she can have a bed on [facility] side. CRM willupdate patient and TCU Patient is okay with [facility] side, she knows that she can visit him and have meals NormalSt. Charles HospitalComment on above:Result Comment: Electronically Signed By: Florence Ortega\.johnnie\Date and Time Signed: 11/02/22 14:23 EDT Interdisciplinary Note - OTon 28-72-1889Dqsjuwccafctevrye Note - OTOT AM-PAC 6 Click Score: [...] Guevara/FLORENCIO under direct supervision from SIVAKUMAR Estrada, OTR/L.[facility] HospitalInterdisciplinary Note - Social Workeron 99-66-7808Iknelmlafjhekzbmw Note - Social WorkerThis SW responded to [...] has a phone call out to her inside sales director to obtain a copy of thisdocumentation if [...] SNF anymore. SW will remain available as needed.[facility] HospitalMonitor Recordon 65-15-1602Ezibcnu Record [id number]#1.00CD:127NormalSt. Charles HospitalProgress Note-Physicianon 05-50-6957Ctskthue Note-PhysicianPatient: MARLEN STALEY Age: 72 years Sex: [...] breath. Sulfa drugs- Sob - shortness of breath.[facility] HospitalComment on above:Result Comment: Electronically Signed By: [...] -AP pelvis was ordered -Checking vitamin D -[place] Metastatic breast cancer ? Continue with chemotherapeutics [...] % (11/01/22::00) Lymph Auto: 24.6 % (11/01/22::00) Yancey Auto: 5 % (11/01/22::) Eos Auto: 3.3 % (11/01/22::00) Basophil Auto: 1.2 % (11/01/22::00) Neutro Absolute: 4.4 E9/L (11/01/22::00) Lymph Absolute: 1.6 E9/L (11/01/22::00) Yancey Absolute: 0.3 E9/L (11/01/22::00) Eos Absolute: 0.2 [...] (hypertension) Hypercholesteremia Invasive du (more content not included)...[facility] Comment on above:Result Comment: Electronically Signed By: Trevor HANKS, Wyatt\.br\Date and Time Signed: 11/02/22 12:22 EDTReference Laboratory Testing Ordered By: Generated DomainUser on 41-69-5425Rkgwrt Ab RPR Ql (S)Non-Reactive Invalid Interpretation CodeNon ReactiveVALIR REHABILITATION HOSPITAL – [place] SendOutsSSComment on above:Result Comment: Performed at: [facility] [id number] PhD [place] Dalton With T4fr ReflexOrdered By: SYSTEM SYSTEM on 90-03-0716YHQ Qn0.93 m[IU]/LNormal0.34-5.60[facility] RemisolComment on above: Performed By: #### 0758691, 5162537, 6169772, 032706003, 94450968 #### [facility] [address] [place], [place] [address]DG With Cult Reflexon 60-59-4693Slxpnpeo LM Ql (Urine sed)TRACE NormalTraceSt. Charles HospitalComment on above:Order Comment: Urinary Catheter Insertion triggered Urinalysis With Culture Reflex order by discern. Performed By: #### 3977468, 4701743, 9528128, 732483864, 94345660 #### [facility] [address] [place] [address]Zpdbetbvk Ql (U)NegativeNormalNegativeSt. Charles HospitalComment on above:Order Comment: Urinary Catheter Insertion triggered Urinalysis With Culture Reflex order by discern.Performed By: #### 9810079, 1312856, 2621744, 215886005, 55586982 #### [facility] [address] [place] [address] 40[address]Lqmevoh (U)CLEARNormalClearSt. Charles HospitalComment on above:Order Comment: Urinary Catheter Insertion triggered Urinalysis With Culture Reflex order by discern.Performed By: #### 6774101, 8656203, 9586023, 291838845, 87581476 #### [facility] [address] [place] [address] 46465Dxnri (U)YELLOWNormalYellowSt. Charles HospitalComment on above:Order Comment: Urinary Catheter Insertion triggered Urinalysis With Culture Reflex order by discern.Performed By: #### 0905916, 4842879, 2250524, 251199084, 55260021 #### [facility] [address] [place] [address] 34708Qncpvhppgr cells.squamous LM.HPF (Urine sed) [#/Area]3-4Normal 0-2[facility] CenterComment on above:Order Comment: Urinary Catheter Insertion triggered Urinalysis With Culture Reflex order by discern.Performed By: #### 6235978, 3286522, 4608104, 139565793, 86821091 #### [facility] [address] [place], [place] [address]Zquxpgh Test strip (U) [Mass/Vol]NegativeNormalNegativeSt. Charles HospitalComment on above:Order Comment: Urinary Catheter Insertion triggered Urinalysis With Culture Reflex order by discern.Performed By: #### 1378368, 6845685, 0958336, 860092873, 92592933 #### [facility] [address] [place], [place] [address]Qvbpzlvdqb Ql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 34-53-4936Jjbbdyl [Mass/Vol]3.1 g/dLLow3.3 - 5.0 gm/dLFTMC Remisol Albumin/Globulin [Mass ratio]0.8 {ratio}Low1.1 - 2.2FT[facility] RemisolALP [Catalytic activity/Vol]131 [iU]/dHigh21 - 98 Int._Unit/LFTMC RemisolALT No additional P-5'-P [Catalytic activity/Vol]13 [iU]/dNormal6 - 46 Int._Unit/LFTMC Remisol Anion gap [Moles/Vol]5 mmol/LLow6 - 16 mEq/LFTMC RemisolAST [Catalytic activity/Vol]16 [iU]/dNormal5 - 43 Int._Unit/LFTMC RemisolBilirubin [Mass/Vol] 0.5 mg/dLNormal0.0 - 1.1 mg/dLFTMC RemisolCalcium [Mass/Vol]8.9 mg/dLNormal8.9 - 11.1 mg/dLFTMC RemisolChloride [Moles/Vol]114 mmol/BGhig011 - 111 mmol/LFTMC RemisolCO2 [Moles/Vol]25 mmol/SQbisee68 - 31 mmol/LFTMC RemisolCreatinine [Mass/Vol]1.1 mg/dLNormal0.5 - 1.3 mg/dLFTMC RemisolGFR/1.73 sq M.predicted among non-blacks MDRD (S/P/Bld) [Vol rate/Area]53 mL/min/1.73 m2Low >=59mL/min/1.73 m2FTMC Chem SGlobulin (S) [Mass/Vol]4.0 g/dLNormal1.4 - 4.0 gm/dLFTMC RemisolGlucose [Mass/Vol]134 mg/xFJmlvux57 - 199 mg/dLFTMC Remisol Potassium [Moles/Vol]3.8 mmol/LNormal3.5 - 5.3 mmol/LFTMC RemisolProtein [Mass/Vol]7.1 g/dLNormal6.0 - 7.8 gm/dLFTMC RemisolSodium [Moles/Vol]140 mmol/L Sphxub733 - 145 mmol/LFTMC RemisolUrea nitrogen [Mass/Vol]24 mg/dLHigh5 - 21 mg/dLFTMC RemisolUrea nitrogen/Creatinine [Mass ratio]22 mg/orUtah92 - 20FTMC RemisolHEMATOLOGYOrdered By: [place] SYSTEM on 19-50-1155Daxhgmuac/100 WBC (Bld) 3.0 %High0.0 - 2.0 %[facility] HemeAutoSSBasophils/Leukocytes Auto (Bld) [Pure # fraction]0.1 E9/LNormal0.0 - 0.2 E9/LFTMC HemeAutoSSEosinophils/100 WBC (Bld)3.1 %Normal0.0 - 8.0 %[facility] HemeAutoSSEosinophils/Leukocytes Auto (Bld) [Pure # fraction]0.1 E9/LNormal0.0 - 0.5 E9/LFTMC HemeAutoSSLymphocytes/100 WBC (Bld) 37.1 %Wxadwd68.0 - 50.0 %[facility] HemeAutoSSLymphocytes/Leukocytes Auto (Bld) [Pure # fraction]1.3 E9/LNormal1.0 - 4.0 E9/LFTMC HemeAutoSSMonocytes/100 WBC (Bld)8.5 %Normal4.0 - 14.0 %[facility] HemeAutoSSMonocytes/Leukocytes Auto (Bld) [Pure # fraction]0.3 E9/LNormal0.2 - 1.0 E9/LFTMC HemeAutoSSNeutrophils/100 WBC (Bld) 48.3 %Hklnoh71.0 - 75.0 %[facility] HemeAutoSSNeutrophils/Leukocytes Auto (Bld) [Pure # fraction]1.7 E9/LLow2.0 - 7.5 E9/LFTMC HemeAutoSSHEMATOLOGYOrdered By: Dianne Villa on 61-66-4464Mkfuytfqzlp distribution width (RBC) [Ratio]16.6 %High10.9 - 14.2 %[facility] HemeAutoSSHematocrit (Bld) [Volume fraction]29.4 %Low34.0 - 46.0 % [facility] HemeAutoSSHemoglobin (Bld) [Mass/Vol]10.0 g/dLLow12.0 - 16.0 gm/dLFTMC HemeAutoSSMCH (RBC) [Entitic mass]34.5 zoFcyi56.0 - 34.0 pgFTMC HemeAutoSSMCHC (RBC) [Mass/Vol]34.0 g/gVYcyhik90.4 - 36.0 gm/dLFTMC HemeAutoSSMCV (RBC) [Entitic vol]101.5 tWElsz28.0 - 100.0 fLFTMC HemeAutoSSPlatelet mean volume (Bld) [Entitic vol]8.0 fLNormal6.4 - 10.8 fLFTMC HemeAutoSSPlatelets (Bld) [#/Vol]177.0 E9/IBymeoh249.0 - 500.0 E9/LFTMC HemeAutoSSRBC (Bld) [#/Vol]2.9 E12/LLow4.3 - 5.9 E12/LFTMC HemeAutoSSWBC corrected for nucl RBC Auto (Bld) [#/Vol]3.4 E9/LLow4.0 - 11.0 E9/LFTMC HemeAutoSSCHEMISTRYOrdered By: SYSTEM SYSTEM on 50-79-6239Sbeamnp [Mass/Vol]3.3 g/dLNormal3.3 - 5.0 gm/dLFTMC Remisol Albumin/Globulin [Mass ratio]1.0 {ratio}Low1.1 - 2.2FT[facility] RemisolALP [Catalytic activity/Vol]121 [iU]/dHigh21 - 98 Int._Unit/LFTMC RemisolALT No additional P-5'-P [Catalytic activity/Vol]15 [iU]/dNormal6 - 46 Int._Unit/LFTMC Remisol Anion gap [Moles/Vol]11 mmol/LNormal6 - 16 mEq/LFTMC RemisolAST [Catalytic activity/Vol]15 [iU]/dNormal5 - 43 Int._Unit/LFTMC RemisolBilirubin [Mass/Vol] 0.9 mg/dLNormal0.0 - 1.1 mg/dLFTMC RemisolCalcium [Mass/Vol]8.5 mg/dLLow8.9 - 11.1 mg/dLFTMC RemisolChloride [Moles/Vol]107 mmol/WXvqput862 - 111 mmol/LFTMC RemisolCO2 [Moles/Vol]22 mmol/BHgjaja89 - 31 mmol/LFTMC RemisolCreatinine [Mass/Vol]1.3 mg/dLNormal0.5 - 1.3 mg/dLFTMC RemisolGFR/1.73 sq M.predicted among blacks MDRD (S/P/Bld) [Vol rate/Area]49 mL/min/1.73 m2Low>=59mL/min/1.73 m2FTMC Chem SGFR/1.73 sq M.predicted among non-blacks MDRD (S/P/Bld) [Vol rate/Area]40 mL/min/1.73 m2Low>=59mL/min/1.73 m2FTMC Chem SGlobulin (S) [Mass/Vol]3.2 g/dLNormal1.4 - 4.0 gm/dLFTMC RemisolGlucose [Mass/Vol]147 mg/dL Qxxxlm47 - 199 mg/dLFTMC RemisolPotassium [Moles/Vol]4.0 mmol/LNormal3.5 - 5.3 mmol/LFTMC RemisolProtein [Mass/Vol]6.5 g/dLNormal6.0 - 7.8 gm/dLFTMC Remisol Sodium [Moles/Vol]136 mmol/PFzbkvj982 - 145 mmol/LFTMC RemisolUrea nitrogen [Mass/Vol]33 mg/dLHigh5 - 21 mg/dLFTMC RemisolUrea nitrogen/Creatinine [Mass ratio]25 mg/hkYszt13 - 20FT[facility] RemisolHEMATOLOGYOrdered By: SYSTEM SYSTEM on 48-87-3533Msumzlhxz/100 WBC (Bld)2.7 %High0.0 - 2.0 %[facility] HemeAutoSS Basophils/Leukocytes Auto (Bld) [Pure # fraction]0.1 E9/LNormal0.0 - 0.2 E9/L [facility] HemeAutoSSEosinophils/100 WBC (Bld)3.5 %Normal0.0 - 8.0 %[facility] HemeAutoSS Eosinophils/Leukocytes Auto (Bld) [Pure # fraction]0.1 E9/LNormal0.0 - 0.5 E9/L [facility] HemeAutoSSLymphocytes/100 WBC (Bld)22.7 %Hgppvl42.0 - 50.0 %[facility] HemeAutoSS Lymphocytes/Leukocytes Auto (Bld) [Pure # fraction]0.8 E9/LLow1.0 - 4.0 E9/LFTMC HemeAutoSSMonocytes/100 WBC (Bld)3.2 %Low4.0 - 14.0 %[facility] HemeAutoSS Monocytes/Leukocytes Auto (Bld) [Pure # fraction]0.1 E9/LLow0.2 - 1.0 E9/LFTMC HemeAutoSSNeutrophils/100 WBC (Bld)67.9 %Tkdxib25.0 - 75.0 %[facility] HemeAutoSS Neutrophils/Leukocytes Auto (Bld) [Pure # fraction]2.5 E9/LNormal2.0 - 7.5 E9/L [facility] HemeAutoSSHEMATOLOGYOrdered By: Suad Thorpe on 39-24-7436Itvjivekfym distribution width (RBC) [Ratio]15.9 %High10.9 - 14.2 %[facility] HemeAutoSSHematocrit (Bld) [Volume fraction]32.4 %Low34.0 - 46.0 %[facility] HemeAutoSSHemoglobin (Bld) [Mass/Vol]10.5 g/dLLow12.0 - 16.0 gm/dLFTMC HemeAutoSSMCH (RBC) [Entitic mass] 33.6 lmRfuxpx72.0 - 34.0 pgFTMC HemeAutoSSMCHC (RBC) [Mass/Vol]32.5 g/dLNormal 31.4 - 36.0 gm/dLFTMC HemeAutoSSMCV (RBC) [Entitic vol]103.2 pEIjju62.0 - 100.0 fLFTMC HemeAutoSSPlatelet mean volume (Bld) [Entitic vol]7.4 fLNormal6.4 - 10.8 fLFTMC HemeAutoSSPlatelets (Bld) [#/Vol]142.0 E9/GRjb255.0 - 500.0 E9/LFT[facility] HemeAutoSSRBC (Bld) [#/Vol]3.1 E12/LLow4.3 - 5.9 E12/LFTMC HemeAutoSSWBC corrected for nucl RBC Auto (Bld) [#/Vol]3.7 E9/LLow4.0 - 11.0 E9/LFT[facility] HemeAutoSSCHEMISTRYOrdered By: SYSTEM SYSTEM on 69-55-7677Idodsqj [Mass/Vol]3.6 g/dLNormal3.3 - 5.0 gm/dLFTMC RemisolAlbumin/Globulin [Mass ratio]1.1 {ratio} Normal1.1 - 2.2FT[facility] RemisolALP [Catalytic activity/Vol]87 [iU]/iLufaxv55 - 98 Int._Unit/LFTMC RemisolALT No additional P-5'-P [Catalytic activity/Vol]18 [iU]/dNormal6 - 46 Int._Unit/LFTMC RemisolAnion gap [Moles/Vol]11 mmol/LNormal6 - 16 mEq/LFT[facility] RemisolAST [Catalytic activity/Vol]18 [iU]/dNormal5 - 43 Int._Unit/LFTMC RemisolBilirubin [Mass/Vol]1.0 mg/dLNormal0.0 - 1.1 mg/dLFTMC RemisolCalcium [Mass/Vol]8.7 mg/dLLow8.9 - 11.1 mg/dLFTMC RemisolChloride [Moles/Vol]108 mmol/ZWeykeb364 - 111 mmol/LFTMC RemisolCO2 [Moles/Vol]23 mmol/L Szvhts15 - 31 mmol/LFTMC RemisolCreatinine [Mass/Vol]1.3 mg/dLNormal0.5 - 1.3 mg/dLFTMC RemisolGFR/1.73 sq M.predicted among blacks MDRD (S/P/Bld) [Vol rate/Area]49 mL/min/1.73 m2Low>=59mL/min/1.73 m2FTMC Chem SGFR/1.73 sq M.predicted among non-blacks MDRD (S/P/Bld) [Vol rate/Area]40 mL/min/1.73 m2Low >=59mL/min/1.73 m2FT[facility] Chem SGlobulin (S) [Mass/Vol]3.4 g/dLNormal1.4 - 4.0 gm/dLFTMC RemisolGlucose [Mass/Vol]119 mg/gAUskcna79 - 199 mg/dLFTMC Remisol Potassium [Moles/Vol]4.1 mmol/LNormal3.5 - 5.3 mmol/LFTMC RemisolProtein [Mass/Vol]7.0 g/dLNormal6.0 - 7.8 gm/dLFTMC RemisolSodium [Moles/Vol]138 mmol/L Vnfkrj688 - 145 mmol/LFTMC RemisolUrea nitrogen [Mass/Vol]24 mg/dLHigh5 - 21 mg/dLFTMC RemisolUrea nitrogen/Creatinine [Mass ratio]18 mg/unKlgnog47 - 20FT[facility] RemisolHEMATOLOGYOrdered By: [place] SYSTEM on 09-89-0467Ekygiatyn/100 WBC (Bld) 2.7 %High0.0 - 2.0 %[facility] HemeAutoSSBasophils/Leukocytes Auto (Bld) [Pure # fraction]0.1 E9/LNormal0.0 - 0.2 E9/LFTMC HemeAutoSSEosinophils/100 WBC (Bld)1.9 %Normal0.0 - 8.0 %[facility] HemeAutoSSEosinophils/Leukocytes Auto (Bld) [Pure # fraction]0.1 E9/LNormal0.0 - 0.5 E9/LFTMC HemeAutoSSLymphocytes/100 WBC (Bld) 31.4 %Anutpd79.0 - 50.0 %[facility] HemeAutoSSLymphocytes/Leukocytes Auto (Bld) [Pure # fraction]1.3 E9/LNormal1.0 - 4.0 E9/LFT[facility] HemeAutoSSMonocytes/100 WBC (Bld)5.5 %Normal4.0 - 14.0 %[facility] HemeAutoSSMonocytes/Leukocytes Auto (Bld) [Pure # fraction]0.2 E9/LNormal0.2 - 1.0 E9/LFT[facility] HemeAutoSSNeutrophils/100 WBC (Bld) 58.5 %Umreiv32.0 - 75.0 %[facility] HemeAutoSSNeutrophils/Leukocytes Auto (Bld) [Pure # fraction]2.5 E9/LNormal2.0 - 7.5 E9/LFT[facility] HemeAutoSSHEMATOLOGYOrdered By: Dianne Villa on 76-59-3303Iycajpctnyi distribution width (RBC) [Ratio]17.1 % High10.9 - 14.2 %[facility] HemeAutoSSHematocrit (Bld) [Volume fraction]36.3 %Normal 34.0 - 46.0 %[facility] HemeAutoSSHemoglobin (Bld) [Mass/Vol]11.9 g/dLLow12.0 - 16.0 gm/dLFTMC HemeAutoSSMCH (RBC) [Entitic mass]33.4 vpPlnynb08.0 - 34.0 pgFTMC HemeAutoSSMCHC (RBC) [Mass/Vol]32.9 g/iWNqsmug77.4 - 36.0 gm/dLFTMC HemeAutoSS MCV (RBC) [Entitic vol]101.5 zQYdqk20.0 - 100.0 fLFTMC HemeAutoSSPlatelet mean volume (Bld) [Entitic vol]7.3 fLNormal6.4 - 10.8 fLFTMC HemeAutoSSPlatelets (Bld) [#/Vol]205.0 E9/UIvppmh579.0 - 500.0 E9/LFTMC HemeAutoSSRBC (Bld) [#/Vol] 3.6 E12/LLow4.3 - 5.9 E12/LFT[facility] HemeAutoSSWBC corrected for nucl RBC Auto (Bld) [#/Vol]4.2 E9/LNormal4.0 - 11.0 E9/LFT[facility] HemeAutoSSCHEMISTRYOrdered By: SYSTEM SYSTEM on [id number] [Mass/Vol]3.6 g/dLNormal3.3 - 5.0 gm/dLFTMC Remisol Albumin/Globulin [Mass ratio]1.2 {ratio}Normal1.1 - 2.2[facility] RemisolALP [Catalytic activity/Vol]79 [iU]/iZwqacx36 - 98 Int._Unit/L[facility] RemisolALT No additional P-5'-P [Catalytic activity/Vol]14 [iU]/dNormal6 - 46 Int._Unit/L[facility] RemisolAnion gap [Moles/Vol]12 mmol/LNormal6 - 16 mEq/L[facility] RemisolAST [Catalytic activity/Vol]16 [iU]/dNormal5 - 43 Int._Unit/L[facility] RemisolBilirubin [Mass/Vol]1.0 mg/dLNormal0.0 - 1.1 mg/dLFTMC RemisolCalcium [Mass/Vol]8.7 mg/dL Low8.9 - 11.1 mg/dLFTMC RemisolChloride [Moles/Vol]107 mmol/XVegadi651 - 111 mmol/LFTMC RemisolCO2 [Moles/Vol]23 mmol/AZejgqv60 - 31 mmol/LFTMC Remisol Creatinine [Mass/Vol]1.2 mg/dLNormal0.5 - 1.3 mg/dLFTMC RemisolGFR/1.73 sq M.predicted among blacks MDRD (S/P/Bld) [Vol rate/Area]54 mL/min/1.73 m2Low >=59mL/min/1.73 m2FT Chem SGFR/1.73 sq M.predicted among non-blacks MDRD (S/P/Bld) [Vol rate/Area]44 mL/min/1.73 m2Low>=59mL/min/1.73 m2FT Chem S Globulin (S) [Mass/Vol]3.1 g/dLNormal1.4 - 4.0 gm/dLFTMC RemisolGlucose [Mass/Vol]121 mg/wRDmpsct57 - 199 mg/dLFTMC RemisolPotassium [Moles/Vol]4.0 mmol/LNormal3.5 - 5.3 mmol/LFTMC RemisolProtein [Mass/Vol]6.7 g/dLNormal6.0 - 7.8 gm/dLFTMC RemisolSodium [Moles/Vol]138 mmol/PKtzklr457 - 145 mmol/LFTMC RemisolUrea nitrogen [Mass/Vol]26 mg/dLHigh5 - 21 mg/dLFTMC RemisolUrea nitrogen/Creatinine [Mass ratio]22 mg/fwUumr80 - 20FT[facility] RemisolHEMATOLOGYOrdered By: SYSTEM SYSTEM on [id number]/100 WBC (Bld)2.5 %High0.0 - 2.0 %[facility] HemeAutoSSBasophils/Leukocytes Auto (Bld) [Pure # fraction]0.1 E9/LNormal0.0 - 0.2 E9/LFTMC HemeAutoSSEosinophils/100 WBC (Bld)1.7 %Normal0.0 - 8.0 %[facility] HemeAutoSSEosinophils/Leukocytes Auto (Bld) [Pure # fraction]0.1 E9/LNormal0.0 - 0.5 E9/LFTMC HemeAutoSSLymphocytes/100 WBC (Bld)49.6 %Xetouj60.0 - 50.0 %[facility] HemeAutoSSLymphocytes/Leukocytes Auto (Bld) [Pure # fraction]2.3 E9/LNormal1.0 - 4.0 E9/LFT[facility] HemeAutoSSMonocytes/100 WBC (Bld)8.1 %Normal4.0 - 14.0 %[facility] HemeAutoSSMonocytes/Leukocytes Auto (Bld) [Pure # fraction]0.4 E9/LNormal0.2 - 1.0 E9/LFT[facility] HemeAutoSSNeutrophils/100 WBC (Bld)38.1 %Jxvbfy20.0 - 75.0 %[facility] HemeAutoSSNeutrophils/Leukocytes Auto (Bld) [Pure # fraction]1.8 E9/LLow2.0 - 7.5 E9/LFT[facility] HemeAutoSSHEMATOLOGYOrdered By: Edwina Plasencia on 06-05-2022 Erythrocyte distribution width (RBC) [Ratio]17.2 %High10.9 - 14.2 %[facility] HemeAutoSSHematocrit (Bld) [Volume fraction]37.6 %Ordrdh37.0 - 46.0 %[facility] HemeAutoSSHemoglobin (Bld) [Mass/Vol]12.7 g/dWTszcqx92.0 - 16.0 gm/dLFTMC HemeAutoSSMCH (RBC) [Entitic mass]33.2 eyCvnvwq64.0 - 34.0 pgFTMC HemeAutoSSMCHC (RBC) [Mass/Vol]33.8 g/fAIyahrw97.4 - 36.0 gm/dLFTMC HemeAutoSSMCV (RBC) [Entitic vol]98.2 dHQmijvl86.0 - 100.0 fLFTMC HemeAutoSSPlatelet mean volume (Bld) [Entitic vol]7.8 fLNormal6.4 - 10.8 fLFTMC HemeAutoSSPlatelets (Bld) [#/Vol]116.0 E9/XUin255.0 - 500.0 E9/LFT[facility] HemeAutoSSRBC (Bld) [#/Vol]3.8 E12/L Low4.3 - 5.9 E12/LFT[facility] HemeAutoSSWBC corrected for nucl RBC Auto (Bld) [#/Vol] 4.6 E9/LNormal4.0 - 11.0 E9/LFT[facility] HemeAutoSSReference Laboratory TestingOrdered By: Generated DomainUser on [id number] Ag Qn17.2 unit/mLInvalid Interpretation Code0.0-38.6unit/mLFTMC SendOutsSSComment on above:Result Comment: [employer] Immunochemiluminometric Methodology (ICMA) Values obtained with different assay methods or kits cannot be used interchangeably. Results cannot be interpreted as absolute evidence of the presence or absence of malignant disease. Performed at: [facility] [id number] PhD Goff VincentCHEMISTRYOrdered By: SYSTEM SYSTEM on 05-07-2022 Albumin [Mass/Vol]3.7 g/dLNormal3.3 - 5.0 gm/dLFTMC RemisolAlbumin/Globulin [Mass ratio]1.2 {ratio}Normal1.1 - 2.2[facility] RemisolALP [Catalytic activity/Vol]74 [iU]/tCilunv79 - 98 Int._Unit/LFT[facility] RemisolALT No additional P-5'-P [Catalytic activity/Vol]19 [iU]/dNormal6 - 46 Int._Unit/L[facility] RemisolAnion gap [Moles/Vol] 15 mmol/LNormal6 - 16 mEq/L[facility] RemisolAST [Catalytic activity/Vol]19 [iU]/d Normal5 - 43 Int._Unit/L[facility] RemisolBilirubin [Mass/Vol]0.9 mg/dLNormal0.0 - 1.1 mg/dLFT[facility] RemisolCalcium [Mass/Vol]8.9 mg/dLNormal8.9 - 11.1 mg/dLFT[facility] Remisol Chloride [Moles/Vol]106 mmol/VMgeddz259 - 111 mmol/LFT[facility] RemisolCO2 [Moles/Vol] 20 mmol/LLow21 - 31 mmol/LFT[facility] RemisolCreatinine [Mass/Vol]1.3 mg/dLNormal0.5 - 1.3 mg/dLFTMC RemisolGFR/1.73 sq M.predicted among blacks MDRD (S/P/Bld) [Vol rate/Area]49 mL/min/1.73 m2Low>=59mL/min/1.73 m2[facility] Chem SGFR/1.73 sq M.predicted among non-blacks MDRD (S/P/Bld) [Vol rate/Area]40 mL/min/1.73 m2Low >=59mL/min/1.73 m2[facility] Chem SGlobulin (S) [Mass/Vol]3.2 g/dLNormal1.4 - 4.0 gm/dLFT[facility] RemisolGlucose [Mass/Vol]144 mg/dEUmmcuo81 - 199 mg/dLFT[facility] Remisol Potassium [Moles/Vol]4.2 mmol/LNormal3.5 - 5.3 mmol/L[facility] RemisolProtein [Mass/Vol]6.9 g/dLNormal6.0 - 7.8 gm/dLFT[facility] RemisolSodium [Moles/Vol]137 mmol/L Gadcqz434 - 145 mmol/LFT[facility] RemisolUrea nitrogen [Mass/Vol]26 mg/dLHigh5 - 21 mg/dLFT[facility] RemisolUrea nitrogen/Creatinine [Mass ratio]20 mg/ttQpnhym10 - 20[facility] RemisolHEMATOLOGYOrdered By: SYSTEM SYSTEM on 50-52-6101Zjwvmqeqr/100 WBC (Bld) 2.2 %High0.0 - 2.0 %[facility] HemeAutoSSBasophils/Leukocytes Auto (Bld) [Pure # fraction]0.1 E9/LNormal0.0 - 0.2 E9/LFT[facility] HemeAutoSSEosinophils/100 WBC (Bld)1.4 %Normal0.0 - 8.0 %[facility] HemeAutoSSEosinophils/Leukocytes Auto (Bld) [Pure # fraction]0.1 E9/LNormal0.0 - 0.5 E9/LFTMC HemeAutoSSLymphocytes/100 WBC (Bld) 49.1 %Sraicx84.0 - 50.0 %[facility] HemeAutoSSLymphocytes/Leukocytes Auto (Bld) [Pure # fraction]1.9 E9/LNormal1.0 - 4.0 E9/L[facility] HemeAutoSSMonocytes/100 WBC (Bld)7.5 %Normal4.0 - 14.0 %[facility] HemeAutoSSMonocytes/Leukocytes Auto (Bld) [Pure # fraction]0.3 E9/LNormal0.2 - 1.0 E9/L[facility] HemeAutoSSNeutrophils/100 WBC (Bld) 39.8 %Ukcudg29.0 - 75.0 %[facility] HemeAutoSSNeutrophils/Leukocytes Auto (Bld) [Pure # fraction]1.5 E9/LLow2.0 - 7.5 E9/L[facility] HemeAutoSSHEMATOLOGYOrdered By: Rosangela Londono on 71-18-2493Wsnlvbbuvgr distribution width (RBC) [Ratio]14.9 %High10.9 - 14.2 %[facility] HemeAutoSSHematocrit (Bld) [Volume fraction]41.2 %Gyplhw02.0 - 46.0 % [facility] HemeAutoSSHemoglobin (Bld) [Mass/Vol]13.6 g/gMMdqqqw02.0 - 16.0 gm/dLFTMC HemeAutoSSMCH (RBC) [Entitic mass]31.4 coHwjwed18.0 - 34.0 pgFTMC HemeAutoSSMCHC (RBC) [Mass/Vol]33.1 g/yEQiicbv26.4 - 36.0 gm/dLFTMC HemeAutoSSMCV (RBC) [Entitic vol]94.7 kHSbzjif14.0 - 100.0 fLFTMC HemeAutoSSPlatelet mean volume (Bld) [Entitic vol]7.5 fLNormal6.4 - 10.8 fLFT[facility] HemeAutoSSPlatelets (Bld) [#/Vol]134.0 E9/RWev679.0 - 500.0 E9/L[facility] HemeAutoSSRBC (Bld) [#/Vol]4.4 E12/L Normal4.3 - 5.9 E12/L[facility] HemeAutoSSWBC corrected for nucl RBC Auto (Bld) [#/Vol]3.8 E9/LLow4.0 - 11.0 E9/L[facility] HemeAutoSSCHEMISTRYOrdered By: SYSTEM SYSTEM on 76-09-4618Ilptrwm [Mass/Vol]3.5 g/dLNormal3.3 - 5.0 gm/dLFT[facility] Remisol Albumin/Globulin [Mass ratio]1.2 {ratio}Normal1.1 - 2.2[facility] RemisolALP [Catalytic activity/Vol]66 [iU]/yLyymdn69 - 98 Int._Unit/L[facility] RemisolALT No additional P-5'-P [Catalytic activity/Vol]16 [iU]/dNormal6 - 46 Int._Unit/L[facility] RemisolAnion gap [Moles/Vol]12 mmol/LNormal6 - 16 mEq/L[facility] RemisolAST [Catalytic activity/Vol]19 [iU]/dNormal5 - 43 Int._Unit/L[facility] RemisolBilirubin [Mass/Vol]0.8 mg/dLNormal0.0 - 1.1 mg/dLFT[facility] RemisolCalcium [Mass/Vol]8.9 mg/dL Normal8.9 - 11.1 mg/dLFT[facility] RemisolChloride [Moles/Vol]106 mmol/NWwrgfm060 - 111 mmol/L[facility] RemisolCO2 [Moles/Vol]23 mmol/VIkktbl92 - 31 mmol/L[facility] Remisol Creatinine [Mass/Vol]1.3 mg/dLNormal0.5 - 1.3 mg/dLFT[facility] RemisolGFR/1.73 sq M.predicted among blacks MDRD (S/P/Bld) [Vol rate/Area]49 mL/min/1.73 m2Low >=59mL/min/1.73 m2[facility] Chem SGFR/1.73 sq M.predicted among non-blacks MDRD (S/P/Bld) [Vol rate/Area]40 mL/min/1.73 m2Low>=59mL/min/1.73 m2[facility] Chem S Globulin (S) [Mass/Vol]2.9 g/dLNormal1.4 - 4.0 gm/dLFT[facility] RemisolGlucose [Mass/Vol]129 mg/kSEdwled16 - 199 mg/dLFT[facility] RemisolPotassium [Moles/Vol]4.2 mmol/LNormal3.5 - 5.3 mmol/L[facility] RemisolProtein [Mass/Vol]6.4 g/dLNormal6.0 - 7.8 gm/dLFT[facility] RemisolSodium [Moles/Vol]137 mmol/MWmlywo575 - 145 mmol/L[facility] RemisolUrea nitrogen [Mass/Vol]23 mg/dLHigh5 - 21 mg/dLFT[facility] RemisolUrea nitrogen/Creatinine [Mass ratio]18 mg/uzXdlgga05 - 20[facility] RemisolHEMATOLOGY Ordered By: [employer] [facility] on 99-90-9370Jftlujbmq/100 WBC (Bld)0.3 %Normal0.0 - 2.0 %[facility] HemeAutoSSBasophils/Leukocytes Auto (Bld) [Pure # fraction]0.0 E9/L Normal0.0 - 0.2 E9/L[facility] HemeAutoSSEosinophils/100 WBC (Bld)7.7 %Normal0.0 - 8.0 %[facility] HemeAutoSSEosinophils/Leukocytes Auto (Bld) [Pure # fraction]0.4 E9/L Normal0.0 - 0.5 E9/L[facility] HemeAutoSSLymphocytes/100 WBC (Bld)40.7 %Ybvruf57.0 - 50.0 %[facility] HemeAutoSSLymphocytes/Leukocytes Auto (Bld) [Pure # fraction]1.9 E9/L Normal1.0 - 4.0 E9/L[facility] HemeAutoSSMonocytes/100 WBC (Bld)4.4 %Normal4.0 - 14.0 %[facility] HemeAutoSSMonocytes/Leukocytes Auto (Bld) [Pure # fraction]0.2 E9/LNormal 0.2 - 1.0 E9/L[facility] HemeAutoSSNeutrophils/100 WBC (Bld)46.9 %Zjgchb54.0 - 75.0 % [facility] HemeAutoSSNeutrophils/Leukocytes Auto (Bld) [Pure # fraction]2.2 E9/LNormal 2.0 - 7.5 E9/L[facility] HemeAutoSSHEMATOLOGYOrdered By: Gavino Lyle on 94-93-7714Ggbimmqmyrj distribution width (RBC) [Ratio]14.1 %Ftmbcw60.9 - 14.2 % [facility] HemeAutoSSHematocrit (Bld) [Volume fraction]41.6 %Pvxaux61.0 - 46.0 %[facility] HemeAutoSSHemoglobin (Bld) [Mass/Vol]13.8 g/sITsxrep22.0 - 16.0 gm/dLFTMC HemeAutoSSMCH (RBC) [Entitic mass]30.9 iyKdorqz39.0 - 34.0 pgFTMC HemeAutoSSMCHC (RBC) [Mass/Vol]33.1 g/jCGcgeld36.4 - 36.0 gm/dLFTMC HemeAutoSSMCV (RBC) [Entitic vol]93.2 fQJelnsu41.0 - 100.0 fLFTMC HemeAutoSSPlatelet mean volume (Bld) [Entitic vol]7.5 fLNormal6.4 - 10.8 fLFTMC HemeAutoSSPlatelets (Bld) [#/Vol]173.0 E9/WZejpvw925.0 - 500.0 E9/L[facility] HemeAutoSSRBC (Bld) [#/Vol]4.5 E12/LNormal4.3 - 5.9 E12/L[facility] HemeAutoSSWBC corrected for nucl RBC Auto (Bld) [#/Vol]4.8 E9/LNormal4.0 - 11.0 E9/L[facility] HemeAutoSSCHEMISTRYOrdered By: SYSTEM SYSTEM on 43-36-8742Ncxtxhz [Mass/Vol]3.7 g/dLNormal3.3 - 5.0 gm/dLFT[facility] Remisol Albumin/Globulin [Mass ratio]1.1 {ratio}Normal1.1 - 2.2[facility] RemisolALP [Catalytic activity/Vol]79 [iU]/qNagwyp98 - 98 Int._Unit/L[facility] RemisolALT No additional P-5'-P [Catalytic activity/Vol]14 [iU]/dNormal6 - 46 Int._Unit/L[facility] RemisolAnion gap [Moles/Vol]13 mmol/LNormal6 - 16 mEq/L[facility] RemisolAST [Catalytic activity/Vol]17 [iU]/dNormal5 - 43 Int._Unit/L[facility] RemisolBilirubin [Mass/Vol]0.7 mg/dLNormal0.0 - 1.1 mg/dLFT[facility] RemisolCalcium [Mass/Vol]9.0 mg/dL Normal8.9 - 11.1 mg/dLFT[facility] RemisolChloride [Moles/Vol]106 mmol/ZKlaeyy233 - 111 mmol/L[facility] RemisolCO2 [Moles/Vol]22 mmol/UYudcjz66 - 31 mmol/L[facility] Remisol Creatinine [Mass/Vol]1.6 mg/dLHigh0.5 - 1.3 mg/dLFT[facility] RemisolGFR/1.73 sq M.predicted among blacks MDRD (S/P/Bld) [Vol rate/Area]38 mL/min/1.73 m2Low >=59mL/min/1.73 m2[facility] Chem SGFR/1.73 sq M.predicted among non-blacks MDRD (S/P/Bld) [Vol rate/Area]32 mL/min/1.73 m2Low>=59mL/min/1.73 m2FT Chem S Globulin (S) [Mass/Vol]3.5 g/dLNormal1.4 - 4.0 gm/dLFT[facility] RemisolGlucose [Mass/Vol]222 mg/sUXbri35 - 199 mg/dLFT[facility] RemisolPotassium [Moles/Vol]4.5 mmol/L Normal3.5 - 5.3 mmol/L[facility] RemisolProtein [Mass/Vol]7.2 g/dLNormal6.0 - 7.8 gm/dLFT[facility] RemisolSodium [Moles/Vol]136 mmol/FRbaxod442 - 145 mmol/L[facility] Remisol Urea nitrogen [Mass/Vol]30 mg/dLHigh5 - 21 mg/dLFT[facility] RemisolUrea nitrogen/Creatinine [Mass ratio]19 mg/ddKwvkza87 - 20[facility] RemisolHEMATOLOGY Ordered By: SYSTEM SYSTEM on 82-80-3512Hboragpdt/100 WBC (Bld)3.1 %High0.0 - 2.0 %[facility] HemeAutoSSBasophils/Leukocytes Auto (Bld) [Pure # fraction]0.2 E9/LNormal 0.0 - 0.2 E9/L[facility] HemeAutoSSEosinophils/100 WBC (Bld)3.1 %Normal0.0 - 8.0 %[facility] HemeAutoSSEosinophils/Leukocytes Auto (Bld) [Pure # fraction]0.2 E9/LNormal0.0 - 0.5 E9/L[facility] HemeAutoSSLymphocytes/100 WBC (Bld)21.4 %Tylqxh22.0 - 50.0 %[facility] HemeAutoSSLymphocytes/Leukocytes Auto (Bld) [Pure # fraction]1.4 E9/LNormal1.0 - 4.0 E9/L[facility] HemeAutoSSMonocytes/100 WBC (Bld)5.5 %Normal4.0 - 14.0 %[facility] HemeAutoSSMonocytes/Leukocytes Auto (Bld) [Pure # fraction]0.4 E9/LNormal0.2 - 1.0 E9/L[facility] HemeAutoSSNeutrophils/100 WBC (Bld)66.9 %Qdyvfr89.0 - 75.0 %[facility] HemeAutoSSNeutrophils/Leukocytes Auto (Bld) [Pure # fraction]4.4 E9/LNormal2.0 - 7.5 E9/L[facility] HemeAutoSSHEMATOLOGYOrdered By: Gavino Lyle on 12-26-2021 Erythrocyte distribution width (RBC) [Ratio]15.1 %High10.9 - 14.2 %[facility] HemeAutoSSHematocrit (Bld) [Volume fraction]39.8 %Ldruae01.0 - 46.0 %[facility] HemeAutoSSHemoglobin (Bld) [Mass/Vol]13.3 g/sTTnsbws88.0 - 16.0 gm/dLFTMC HemeAutoSSMCH (RBC) [Entitic mass]33.9 tpZacohd73.0 - 34.0 pgFTMC HemeAutoSSMCHC (RBC) [Mass/Vol]33.4 g/yBCgeqvo16.4 - 36.0 gm/dLFTMC HemeAutoSSMCV (RBC) [Entitic vol]101.6 pTChxs44.0 - 100.0 fLFTMC HemeAutoSSPlatelet mean volume (Bld) [Entitic vol]7.8 fLNormal6.4 - 10.8 fLFT[facility] HemeAutoSSPlatelets (Bld) [#/Vol]267.0 E9/BFayzjr444.0 - 500.0 E9/L[facility] HemeAutoSSRBC (Bld) [#/Vol]3.9 E12/LLow4.3 - 5.9 E12/L[facility] HemeAutoSSWBC corrected for nucl RBC Auto (Bld) [#/Vol]6.7 E9/LNormal4.0 - 11.0 E9/L[facility] HemeAutoSSCHEMISTRYOrdered By: SYSTEM SYSTEM on 95-87-4096Yfwovmh [Mass/Vol]3.6 g/dLNormal3.3 - 5.0 gm/dLFT[facility] Remisol Albumin/Globulin [Mass ratio]1.1 {ratio}Normal1.1 - 2.2[facility] RemisolALP [Catalytic activity/Vol]103 [iU]/dHigh21 - 98 Int._Unit/L[facility] RemisolALT No additional P-5'-P [Catalytic activity/Vol]16 [iU]/dNormal6 - 46 Int._Unit/L[facility] RemisolAnion gap [Moles/Vol]13 mmol/LNormal6 - 16 mEq/L[facility] RemisolAST [Catalytic activity/Vol]16 [iU]/dNormal5 - 43 Int._Unit/L[facility] RemisolBilirubin [Mass/Vol]1.0 mg/dLNormal0.0 - 1.1 mg/dLFT RemisolCalcium [Mass/Vol]8.9 mg/dL Normal8.9 - 11.1 mg/dLFTMC RemisolChloride [Moles/Vol]106 mmol/UByuoia004 - 111 mmol/L[facility] RemisolCO2 [Moles/Vol]21 mmol/RPfgjys12 - 31 mmol/L[facility] Remisol Creatinine [Mass/Vol]2.4 mg/dLHigh0.5 - 1.3 mg/dLFT RemisolGFR/1.73 sq M.predicted among blacks MDRD (S/P/Bld) [Vol rate/Area]24 mL/min/1.73 m2Low >=59mL/min/1.73 m2FT Chem SGFR/1.73 sq M.predicted among non-blacks MDRD (S/P/Bld) [Vol rate/Area]20 mL/min/1.73 m2Low>=59mL/min/1.73 m2[facility] [place] Chem S Globulin (S) [Mass/Vol]3.2 g/dLNormal1.4 - 4.0 gm/dLFTMC RemisolGlucose [Mass/Vol]136 mg/hDUjioob06 - 199 mg/dLFTMC RemisolPotassium [Moles/Vol]4.4 mmol/LNormal3.5 - 5.3 mmol/L[facility] RemisolProtein [Mass/Vol]6.8 g/dLNormal6.0 - 7.8 gm/dLFT[facility] RemisolSodium [Moles/Vol]136 mmol/HAuvoxj308 - 145 mmol/LFT[facility] RemisolUrea nitrogen [Mass/Vol]41 mg/dLHigh5 - 21 mg/dLFT[facility] RemisolUrea nitrogen/Creatinine [Mass ratio]17 mg/ksWbhadt45 - 20[facility] RemisolHEMATOLOGY Ordered By: SYSTEM SYSTEM on 35-03-5190Pjxizwoyc/100 WBC (Bld)3.6 %High0.0 - 2.0 %[facility] HemeAutoSSBasophils/Leukocytes Auto (Bld) [Pure # fraction]0.2 E9/LNormal 0.0 - 0.2 E9/LFT[facility] HemeAutoSSEosinophils/100 WBC (Bld)1.7 %Normal0.0 - 8.0 %[facility] HemeAutoSSEosinophils/Leukocytes Auto (Bld) [Pure # fraction]0.1 E9/LNormal0.0 - 0.5 E9/L[facility] HemeAutoSSLymphocytes/100 WBC (Bld)22.2 %Ylrmnh76.0 - 50.0 %[facility] HemeAutoSSLymphocytes/Leukocytes Auto (Bld) [Pure # fraction]1.0 E9/LNormal1.0 - 4.0 E9/L[facility] HemeAutoSSMonocytes/100 WBC (Bld)5.2 %Normal4.0 - 14.0 %[facility] HemeAutoSSMonocytes/Leukocytes Auto (Bld) [Pure # fraction]0.2 E9/LNormal0.2 - 1.0 E9/L[facility] HemeAutoSSNeutrophils/100 WBC (Bld)67.3 %Kigsnb56.0 - 75.0 %[facility] HemeAutoSSNeutrophils/Leukocytes Auto (Bld) [Pure # fraction]3.2 E9/LNormal2.0 - 7.5 E9/L[facility] HemeAutoSSHEMATOLOGYOrdered By: Helen Durán on 11-27-2021 Erythrocyte distribution width (RBC) [Ratio]19.9 %High10.9 - 14.2 %[facility] HemeAutoSSHematocrit (Bld) [Volume fraction]35.7 %Topjzc60.0 - 46.0 %[facility] HemeAutoSSHemoglobin (Bld) [Mass/Vol]12.3 g/hSYulrbn86.0 - 16.0 gm/dLFTMC HemeAutoSSMCH (RBC) [Entitic mass]34.7 mtLtxs48.0 - 34.0 pgFTMC HemeAutoSSMCHC (RBC) [Mass/Vol]34.5 g/zKRgaseh92.4 - 36.0 gm/dLFTMC HemeAutoSSMCV (RBC) [Entitic vol]100.3 nACeix95.0 - 100.0 fLFTMC HemeAutoSSPlatelet mean volume (Bld) [Entitic vol]6.9 fLNormal6.4 - 10.8 fLFTMC HemeAutoSSPlatelets (Bld) [#/Vol]464.0 E9/JAfzvlx573.0 - 500.0 E9/L[facility] HemeAutoSSRBC (Bld) [#/Vol]3.6 E12/LLow4.3 - 5.9 E12/L[facility] HemeAutoSSWBC corrected for nucl RBC Auto (Bld) [#/Vol]4.7 E9/LNormal4.0 - 11.0 E9/L[facility] HemeAutoSSCHEMISTRYOrdered By: SYSTEM SYSTEM on 18-65-6138Hqiowdd [Mass/Vol]3.7 g/dLNormal3.3 - 5.0 gm/dLFTMC Remisol Albumin/Globulin [Mass ratio]1.2 {ratio}Normal1.1 - 2.2[facility] RemisolALP [Catalytic activity/Vol]79 [iU]/lXacktp53 - 98 Int._Unit/L[facility] RemisolALT No additional P-5'-P [Catalytic activity/Vol]19 [iU]/dNormal6 - 46 Int._Unit/L[facility] RemisolAnion gap [Moles/Vol]12 mmol/LNormal6 - 16 mEq/L[facility] RemisolAST [Catalytic activity/Vol]20 [iU]/dNormal5 - 43 Int._Unit/L[facility] RemisolBilirubin [Mass/Vol]0.7 mg/dLNormal0.0 - 1.1 mg/dLFTMC RemisolCalcium [Mass/Vol]9.0 mg/dL Normal8.9 - 11.1 mg/dLFT RemisolChloride [Moles/Vol]108 mmol/OOwqhrn003 - 111 mmol/LFT[facility] RemisolCO2 [Moles/Vol]23 mmol/EIhamsg96 - 31 mmol/LFTMC Remisol Creatinine [Mass/Vol]1.5 mg/dLHigh0.5 - 1.3 mg/dLFT RemisolGFR/1.73 sq M.predicted among blacks MDRD (S/P/Bld) [Vol rate/Area]41 mL/min/1.73 m2Low >=59mL/min/1.73 m2[facility] [place] Chem SGFR/1.73 sq M.predicted among non-blacks MDRD (S/P/Bld) [Vol rate/Area]34 mL/min/1.73 m2Low>=59mL/min/1.73 m2[facility] [place] Chem S Globulin (S) [Mass/Vol]3.2 g/dLNormal1.4 - 4.0 gm/dLFT RemisolGlucose [Mass/Vol]122 mg/mTRzdsej46 - 199 mg/dLFTMC RemisolPotassium [Moles/Vol]4.6 mmol/LNormal3.5 - 5.3 mmol/LFT[facility] RemisolProtein [Mass/Vol]6.9 g/dLNormal6.0 - 7.8 gm/dLFTMC RemisolSodium [Moles/Vol]138 mmol/FBferwu801 - 145 mmol/LFT[facility] RemisolUrea nitrogen [Mass/Vol]26 mg/dLHigh5 - 21 mg/dLFTMC RemisolUrea nitrogen/Creatinine [Mass ratio]17 mg/niPfnghl40 - 20[facility] RemisolHEMATOLOGY Ordered By: [employer] SYSTEM on 48-65-1918Xphxwpcnf/100 WBC (Bld)3.5 %High0.0 - 2.0 %[facility] HemeAutoSSBasophils/Leukocytes Auto (Bld) [Pure # fraction]0.1 E9/LNormal 0.0 - 0.2 E9/LFT[facility] HemeAutoSSEosinophils/100 WBC (Bld)1.8 %Normal0.0 - 8.0 %[facility] HemeAutoSSEosinophils/Leukocytes Auto (Bld) [Pure # fraction]0.1 E9/LNormal0.0 - 0.5 E9/LFT[facility] HemeAutoSSLymphocytes/100 WBC (Bld)48.6 %Sowgcx96.0 - 50.0 %[facility] HemeAutoSSLymphocytes/Leukocytes Auto (Bld) [Pure # fraction]2.0 E9/LNormal1.0 - 4.0 E9/L[facility] HemeAutoSSMonocytes/100 WBC (Bld)3.9 %Low4.0 - 14.0 %[facility] HemeAutoSSMonocytes/Leukocytes Auto (Bld) [Pure # fraction]0.2 E9/LNormal0.2 - 1.0 E9/L[facility] HemeAutoSSNeutrophils/100 WBC (Bld)42.2 %Ykasyj54.0 - 75.0 %[facility] HemeAutoSSNeutrophils/Leukocytes Auto (Bld) [Pure # fraction]1.7 E9/LLow2.0 - 7.5 E9/LFTMC HemeAutoSSHEMATOLOGYOrdered By: Maxim Ding on 11-01-2021 Erythrocyte distribution width (RBC) [Ratio]20.6 %High10.9 - 14.2 %[facility] HemeAutoSSHematocrit (Bld) [Volume fraction]37.6 %Keurng79.0 - 46.0 %[facility] HemeAutoSSHemoglobin (Bld) [Mass/Vol]12.9 g/uVNoujog42.0 - 16.0 gm/dLFTMC HemeAutoSSMCH (RBC) [Entitic mass]32.7 hxPbivzc93.0 - 34.0 pgFTMC HemeAutoSSMCHC (RBC) [Mass/Vol]34.3 g/pDTldyjh24.4 - 36.0 gm/dLFTMC HemeAutoSSMCV (RBC) [Entitic vol]95.2 aXRwrlvk48.0 - 100.0 fLFTMC HemeAutoSSPlatelet mean volume (Bld) [Entitic vol]7.3 fLNormal6.4 - 10.8 fLFTMC HemeAutoSSPlatelets (Bld) [#/Vol]387.0 E9/EDcfcqr340.0 - 500.0 E9/LFT[facility] HemeAutoSSRBC (Bld) [#/Vol]4.0 E12/LLow4.3 - 5.9 E12/LFT[facility] HemeAutoSSWBC corrected for nucl RBC Auto (Bld) [#/Vol]4.0 E9/LNormal4.0 - 11.0 E9/LFC HemeAutoSSCHEMISTRYOrdered By: SYSTEM SYSTEM on 94-50-8938Likmczk [Mass/Vol]3.9 g/dLNormal3.3 - 5.0 gm/dLFTMC Remisol Albumin/Globulin [Mass ratio]1.1 {ratio}Normal1.1 - 2.2[facility] RemisolALP [Catalytic activity/Vol]135 [iU]/dHigh21 - 98 Int._Unit/LFT[facility] RemisolALT No additional P-5'-P [Catalytic activity/Vol]37 [iU]/dNormal6 - 46 Int._Unit/LFT[facility] RemisolAnion gap [Moles/Vol]16 mmol/LNormal6 - 16 mEq/LFT[facility] RemisolAST [Catalytic activity/Vol]25 [iU]/dNormal5 - 43 Int._Unit/LFT[facility] RemisolBilirubin [Mass/Vol]1.2 mg/dLHigh0.0 - 1.1 mg/dLFTMC RemisolCalcium [Mass/Vol]9.1 mg/dL Normal8.9 - 11.1 mg/dLFTMC RemisolChloride [Moles/Vol]105 mmol/WQzlbpg105 - 111 mmol/LFTMC RemisolCO2 [Moles/Vol]21 mmol/DBahnzb65 - 31 mmol/LFTMC Remisol Creatinine [Mass/Vol]1.4 mg/dLHigh0.5 - 1.3 mg/dLFTMC RemisolGFR/1.73 sq M.predicted among blacks MDRD (S/P/Bld) [Vol rate/Area]45 mL/min/1.73 m2Low >=59mL/min/1.73 m2[facility] Chem SGFR/1.73 sq M.predicted among non-blacks MDRD (S/P/Bld) [Vol rate/Area]37 mL/min/1.73 m2Low>=59mL/min/1.73 m2[facility] Chem S Globulin (S) [Mass/Vol]3.5 g/dLNormal1.4 - 4.0 gm/dLFTMC RemisolGlucose [Mass/Vol]166 mg/jIHxjffr42 - 199 mg/dLFTMC RemisolPotassium [Moles/Vol]4.8 mmol/LNormal3.5 - 5.3 mmol/LFTMC RemisolProtein [Mass/Vol]7.4 g/dLNormal6.0 - 7.8 gm/dLFTMC RemisolSodium [Moles/Vol]137 mmol/ZHaaysy957 - 145 mmol/LFTMC RemisolUrea nitrogen [Mass/Vol]24 mg/dLHigh5 - 21 mg/dLFTMC RemisolUrea nitrogen/Creatinine [Mass ratio]17 mg/ylLeozbd27 - 20FT[facility] RemisolHEMATOLOGY Ordered By: SYSTEM SYSTEM on 67-45-3683Pzxwaisdo/100 WBC (Bld)2.8 %High0.0 - 2.0 %[facility] HemeAutoSSBasophils/Leukocytes Auto (Bld) [Pure # fraction]0.1 E9/LNormal 0.0 - 0.2 E9/LFTMC HemeAutoSSEosinophils/100 WBC (Bld)3.6 %Normal0.0 - 8.0 %[facility] HemeAutoSSEosinophils/Leukocytes Auto (Bld) [Pure # fraction]0.1 E9/LNormal0.0 - 0.5 E9/LFTMC HemeAutoSSLymphocytes/100 WBC (Bld)32.7 %Nmeyfn87.0 - 50.0 %[facility] HemeAutoSSLymphocytes/Leukocytes Auto (Bld) [Pure # fraction]1.3 E9/LNormal1.0 - 4.0 E9/LFT[facility] HemeAutoSSMonocytes/100 WBC (Bld)4.9 %Normal4.0 - 14.0 %[facility] HemeAutoSSMonocytes/Leukocytes Auto (Bld) [Pure # fraction]0.2 E9/LNormal0.2 - 1.0 E9/LFTMC HemeAutoSSNeutrophils/100 WBC (Bld)56.0 %Wfbaiu76.0 - 75.0 %[facility] HemeAutoSSNeutrophils/Leukocytes Auto (Bld) [Pure # fraction]2.2 E9/LNormal2.0 - 7.5 E9/LFTMC HemeAutoSSHEMATOLOGYOrdered By: Lisette Tadeo on 10-02-2021 Erythrocyte distribution width (RBC) [Ratio]19.0 %High10.9 - 14.2 %[facility] HemeAutoSSHematocrit (Bld) [Volume fraction]38.9 %Lhvcis02.0 - 46.0 %[facility] HemeAutoSSHemoglobin (Bld) [Mass/Vol]13.3 g/kATywmzz67.0 - 16.0 gm/dLFTMC HemeAutoSSMCH (RBC) [Entitic mass]31.2 jfKwqqxf13.0 - 34.0 pgFTMC HemeAutoSSMCHC (RBC) [Mass/Vol]34.1 g/zICqekxm95.4 - 36.0 gm/dLFTMC HemeAutoSSMCV (RBC) [Entitic vol]91.6 wINsufzn78.0 - 100.0 fLFTMC HemeAutoSSPlatelet mean volume (Bld) [Entitic vol]7.8 fLNormal6.4 - 10.8 fLFTMC HemeAutoSSPlatelets (Bld) [#/Vol]317.0 E9/HAyipib611.0 - 500.0 E9/LFTMC HemeAutoSSComment on above:Result Comment: Platelet count verified using smear estimate. 10/02/2021 15:55:05 EDT RBC (Bld) [#/Vol]4.2 E12/LLow4.3 - 5.9 E12/LFC HemeAutoSSWBC corrected for nucl RBC Auto (Bld) [#/Vol]4.0 E9/LNormal4.0 - 11.0 E9/LFTMC HemeAutoSSClinic Note - Heme Onc Schedulingon [id number] Note - Heme Onc SchedulingRetrieve Patient Instructions: Patient Instructions: Patient Instructions: RetrievePatient Instructions Instructions It was a pleasure meeting you today. Thank you for allowing me to take part in your care. Please contact our office if you have any questions or concerns going forward. End of Visit Documentation: Clinic Location/Phone Number: Clinic Location/Phone Number: [facility] End Of Visit MU Report Item: Visit Summary given or mailed to patientyes Mailed to patient Electronic Signatures: Isa Wong (SEC) (Signed 28-Aug-2021 16:01) Authored: Retrieve Patient Instructions, End of Visit Documentation Last Updated: 28-Aug-2021 16:01 by Isa Wong (SEC)[facility] On[facility]-New Visiton [id number] Note - Heme Onc-New VisitPatient Visit Information: Visit Type: New Visit Cancer History: Breast AJCC Edition: 8th (AJCC), Diagnosis Date: August 2021, Stage(no match), pM1 G2 History of Present Illness: ID Statement: null is a () day old null Interval History: BREAST CANCER DIAGNOSIS metastatic ER+/HI+/HER2- breast cancer ([id number]) CONSULTING ONCOLOGIST Dr David Caldera CURRENT THERAPY anastrozole/ribociclib x 3 weeks HPI Patient is a pleasant 71 y/o woman here for a 2nd opinion. She presented on 06/29/21 with a 4.2cm mass in the right breast which she had for >1 year. Biopsy revealed ER/HI >95%/HER2- breast cancer. 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 for intimate exam offered to patient: Patient [...] Falls Band/Sticker Applied and Clinician Awareyes Spiritual/Procedural: Spiritual/cultural/taoist practices important for us to knowno Adv [...] you are livingno Depression: Past 2 wks: [place] down, depressed or hopelessno Past 2 wks: [place] little interest/pleasure doing thingsno Any Thoughts of [...] 13:21) Authored: Patient Visit Information, Vital Signs, Heating Operators Engineer, Allergies, Outpatient Medication Profile, Notification, Travel History, Falls, Spiritual/Procedural, Adv Dir, Violence, Depression, Substance, Nutrition/Learning Lisette Valle (RN) (Signed 28-Aug-2021 15:47) Authored: Vital Signs, Notification Co-Signer: Patient Visit Information, Vital Signs, Heating Operators Engineer, Allergies, Outpatient Medication Profile, Notification, Travel History, Falls, Spiritual/Procedural, Adv Dir, Violence, Depression, Substance, Nutrition/Learning Last Updated: 28-Aug-2021 15:47 by Lisette Valle (RN)[facility] - Outpatient-Community Health Workeron 08-25-2021 Narrative Note - Outpatient-Community Health WorkerNarrative Note: CHW: DisciplineCommunity Health Worker Best way to contact patient#[id number] Veteranno Has patient been seen by a [...] spelled wrong and that it should list [place] not [place]. Electronic Signatures: Leroy Gallegos (COOR) (Signed 25-Aug-2021 11:50) Authored: IVAN Last Updated: 25-Aug-2021 11:50 by Leroy Gallegos (COOR)[facility] ClinicCHEMISTRYOrdered By: SYSTEM SYSTEM on [id number] [Mass/Vol]3.5 g/dLNormal3.3 - 5.0 gm/dLFTMC RemisolAlbumin/Globulin [Mass ratio] 1.1 {ratio}Normal1.1 - 2.2[facility] RemisolALP [Catalytic activity/Vol]71 [iU]/d Cvdcaf25 - 98 Int._Unit/LFT[facility] RemisolALT No additional P-5'-P [Catalytic activity/Vol]16 [iU]/dNormal6 - 46 Int._Unit/LFT[facility] RemisolAnion gap [Moles/Vol] 11 mmol/LNormal6 - 16 mEq/LFT[facility] RemisolAST [Catalytic activity/Vol]17 [iU]/d Normal5 - 43 Int._Unit/LFT[facility] RemisolBilirubin [Mass/Vol]0.8 mg/dLNormal0.0 - 1.1 mg/dLFT[facility] RemisolCalcium [Mass/Vol]8.7 mg/dLLow8.9 - 11.1 mg/dLFTMC Remisol Carcinoembryonic Ag [Mass/Vol]10.2 ng/mLInvalid Interpretation CodeFTMC Remisol Chloride [Moles/Vol]110 mmol/OVqsrzf949 - 111 mmol/LFT[facility] RemisolCO2 [Moles/Vol] 21 mmol/BAfcjet77 - 31 mmol/LFT[facility] RemisolCreatinine [Mass/Vol]1.0 mg/dLNormal0.5 - 1.3 mg/dLFTMC RemisolGFR/1.73 sq M.predicted among blacks MDRD (S/P/Bld) [Vol rate/Area]mL/min/1.73 o8Ayipbf>=59mL/min/1.73 m2[facility] Chem SGFR/1.73 sq M.predicted among non-blacks MDRD (S/P/Bld) [Vol rate/Area]54 mL/min/1.73 m2Low >=59mL/min/1.73 m2[facility] Chem SGlobulin (S) [Mass/Vol]3.1 g/dLNormal1.4 - 4.0 gm/dLFT[facility] RemisolGlucose [Mass/Vol]132 mg/bDGdesdc31 - 199 mg/dLFT[facility] Remisol Potassium [Moles/Vol]4.1 mmol/LNormal3.5 - 5.3 mmol/LFTMC RemisolProtein [Mass/Vol]6.6 g/dLNormal6.0 - 7.8 gm/dLFT[facility] RemisolSodium [Moles/Vol]138 mmol/L Raltlq061 - 145 mmol/LFTMC RemisolUrea nitrogen [Mass/Vol]28 mg/dLHigh5 - 21 mg/dLFT[facility] RemisolUrea nitrogen/Creatinine [Mass ratio]28 mg/xpMqay95 - 20[facility] RemisolHEMATOLOGYOrdered By: SYSTEM SYSTEM on 24-68-6281Cwgvchtrb/100 WBC (Bld) 1.1 %Normal0.0 - 2.0 %[facility] HemeAutoSSBasophils/Leukocytes Auto (Bld) [Pure # fraction]0.1 E9/LNormal0.0 - 0.2 E9/LFTMC HemeAutoSSEosinophils/100 WBC (Bld)3.5 %Normal0.0 - 8.0 %[facility] HemeAutoSSEosinophils/Leukocytes Auto (Bld) [Pure # fraction]0.3 E9/LNormal0.0 - 0.5 E9/LFTMC HemeAutoSSLymphocytes/100 WBC (Bld) 35.9 %Gsxsbc28.0 - 50.0 %[facility] HemeAutoSSLymphocytes/Leukocytes Auto (Bld) [Pure # fraction]2.7 E9/LNormal1.0 - 4.0 E9/LFTMC HemeAutoSSMonocytes/100 WBC (Bld)5.3 %Normal4.0 - 14.0 %[facility] HemeAutoSSMonocytes/Leukocytes Auto (Bld) [Pure # fraction]0.4 E9/LNormal0.2 - 1.0 E9/LFTMC HemeAutoSSNeutrophils/100 WBC (Bld) 54.2 %Osoifr01.0 - 75.0 %[facility] HemeAutoSSNeutrophils/Leukocytes Auto (Bld) [Pure # fraction]4.1 E9/LNormal2.0 - 7.5 E9/LFTMC HemeAutoSSHEMATOLOGYOrdered By: Edwina Ryan on [id number] distribution width (RBC) [Ratio]14.5 %High10.9 - 14.2 %[facility] HemeAutoSSHematocrit (Bld) [Volume fraction]40.6 %Normal 34.0 - 46.0 %[facility] HemeAutoSSHemoglobin (Bld) [Mass/Vol]13.6 g/aONfdqtx65.0 - 16.0 gm/dLFTMC HemeAutoSSMCH (RBC) [Entitic mass]29.8 phGrrauh62.0 - 34.0 pgFTMC HemeAutoSSMCHC (RBC) [Mass/Vol]33.5 g/yYTvoyyz68.4 - 36.0 gm/dLFTMC HemeAutoSS MCV (RBC) [Entitic vol]88.9 sOOpdlqn42.0 - 100.0 fLFTMC HemeAutoSSPlatelet mean volume (Bld) [Entitic vol]7.9 fLNormal6.4 - 10.8 fLFTMC HemeAutoSSPlatelets (Bld) [#/Vol]185.0 E9/HKzjrcb647.0 - 500.0 E9/LFT[facility] HemeAutoSSRBC (Bld) [#/Vol] 4.6 E12/LNormal4.3 - 5.9 E12/LFT[facility] HemeAutoSSWBC corrected for nucl RBC Auto (Bld) [#/Vol]7.6 E9/LNormal4.0 - 11.0 E9/L[facility] HemeAutoSSNurse Navigator - Breast-Second Opinionon [id number] Navigator - Breast-Second Opinion Preview: Note Preview [...] explained role within the multidisciplinary team at [facility]; reviewed upcoming appointment with Dr. Seay, provided [...] Last Updated: 16-Aug-2021 11:34 by Aliya Dobson (DELGADO)[facility] ClinicCHEMISTRYOrdered By: SYSTEM SYSTEM on 45-49-7773Emgkfvi [Mass/Vol] 3.6 g/dLNormal3.3 - 5.0 gm/dLVALIR [facility] [place] RemisolAlbumin/Globulin [Mass ratio]1.1 {ratio}Normal1.1 - 2.2[facility] RemisolALP [Catalytic activity/Vol]74 [iU]/lXbwfgr18 - 98 Int._Unit/LFT[facility] RemisolALT No additional P-5'-P [Catalytic activity/Vol]19 [iU]/dNormal6 - 46 Int._Unit/L[facility] RemisolAnion gap [Moles/Vol]12 mmol/LNormal6 - 16 mEq/L[facility] RemisolAST [Catalytic activity/Vol]19 [iU]/dNormal5 - 43 Int._Unit/L[facility] RemisolBilirubin [Mass/Vol]1.1 mg/dLNormal0.0 - 1.1 mg/dLFTMC RemisolCalcium [Mass/Vol]9.0 mg/dLNormal8.9 - 11.1 mg/dLFTMC RemisolChloride [Moles/Vol]107 mmol/XSyladr362 - 111 mmol/LFT[facility] RemisolCO2 [Moles/Vol]21 mmol/L Usmbno37 - 31 mmol/LFT[facility] RemisolCreatinine [Mass/Vol]1.1 mg/dLNormal0.5 - 1.3 mg/dLFTMC RemisolGFR/1.73 sq M.predicted among blacks MDRD (S/P/Bld) [Vol rate/Area]59 mL/min/1.73 q6Ysrvrk>=59mL/min/1.73 m2[facility] Chem SGFR/1.73 sq M.predicted among non-blacks MDRD (S/P/Bld) [Vol rate/Area]49 mL/min/1.73 m2Low >=59mL/min/1.73 m2[facility] Chem SGlobulin (S) [Mass/Vol]3.4 g/dLNormal1.4 - 4.0 gm/dLFTMC RemisolGlucose [Mass/Vol]151 mg/yMNtbnaq61 - 199 mg/dLFT[facility] Remisol Potassium [Moles/Vol]4.5 mmol/LNormal3.5 - 5.3 mmol/LFTMC RemisolProtein [Mass/Vol]7.0 g/dLNormal6.0 - 7.8 gm/dLFT[facility] RemisolSodium [Moles/Vol]135 mmol/L Nrryji982 - 145 mmol/LFTMC RemisolUrea nitrogen [Mass/Vol]30 mg/dLHigh5 - 21 mg/dLFTMC RemisolUrea nitrogen/Creatinine [Mass ratio]27 mg/jkXpcx58 - 20[facility] RemisolHEMATOLOGYOrdered By: SYSTEM SYSTEM on 24-44-7186Jekrdffyb/100 WBC (Bld) 1.4 %Normal0.0 - 2.0 %[facility] HemeAutoSSBasophils/Leukocytes Auto (Bld) [Pure # fraction]0.1 E9/LNormal0.0 - 0.2 E9/LFTMC HemeAutoSSEosinophils/100 WBC (Bld)2.1 %Normal0.0 - 8.0 %[facility] HemeAutoSSEosinophils/Leukocytes Auto (Bld) [Pure # fraction]0.1 E9/LNormal0.0 - 0.5 E9/LFTMC HemeAutoSSLymphocytes/100 WBC (Bld) 25.7 %Gpzwdf31.0 - 50.0 %[facility] HemeAutoSSLymphocytes/Leukocytes Auto (Bld) [Pure # fraction]1.6 E9/LNormal1.0 - 4.0 E9/LFT[facility] HemeAutoSSMonocytes/100 WBC (Bld)5.6 %Normal4.0 - 14.0 %[facility] HemeAutoSSMonocytes/Leukocytes Auto (Bld) [Pure # fraction]0.3 E9/LNormal0.2 - 1.0 E9/LFT[facility] HemeAutoSSNeutrophils/100 WBC (Bld) 65.2 %Xnbqgv55.0 - 75.0 %[facility] HemeAutoSSNeutrophils/Leukocytes Auto (Bld) [Pure # fraction]3.9 E9/LNormal2.0 - 7.5 E9/LFT[facility] HemeAutoSSHEMATOLOGYOrdered By: Katherine Last on 05-96-2181Gvhbrmpkfyb distribution width (RBC) [Ratio]14.3 %High 10.9 - 14.2 %[facility] HemeAutoSSHematocrit (Bld) [Volume fraction]42.8 %Vpqbzp78.0 - 46.0 %[facility] HemeAutoSSHemoglobin (Bld) [Mass/Vol]14.5 g/uOSgxnfv96.0 - 16.0 gm/dL [facility] HemeAutoSSMCH (RBC) [Entitic mass]29.8 igKbmrnc38.0 - 34.0 pgFTMC HemeAutoSSMCHC (RBC) [Mass/Vol]33.9 g/wCYvkads76.4 - 36.0 gm/dLFTMC HemeAutoSS MCV (RBC) [Entitic vol]87.7 hNFfcckk38.0 - 100.0 fLFTMC HemeAutoSSPlatelet mean volume (Bld) [Entitic vol]7.5 fLNormal6.4 - 10.8 [facility] HemeAutoSSPlatelets (Bld) [#/Vol]196.0 E9/EJtnilf865.0 - 500.0 E9/[facility] HemeAutoSSRBC (Bld) [#/Vol] 4.9 E12/LNormal4.3 - 5.9 E12/[facility] HemeAutoSSWBC corrected for nucl RBC Auto (Bld) [#/Vol]6.1 E9/LNormal4.0 - 11.0 E9/[facility] HemeAutoSS Vital Signs Date TimeVital SignValuePerforming IpdgxajfpCnzdmrdr15-85-9688 14:41-0400Body .88 [degF][facility]05-21-2025 14:41-0400Diastolic blood mm[Hg][facility]05-21-2025 14:41-0400Heart rate67 /minMer[facility]05-21-2025 14:41-0400Mean blood fztxtlru81 mm[Hg][facility]05-21-2025 14:41-0400Respiratory rate18 /minMer[facility]05-21-2025 14:41-2525KdU1% (BldA) [Mass fraction]99 %[facility] 09-09-2024 14:41-0400Systolic blood nuyovjcz980 mm[Hg][facility]01-22-2025 14:46-0500Body jzshfkkcqle72.42 [degF][facility]01-22-2025 14:46-0500Diastolic blood uleozptc53 mm[Hg][facility]01-22-2025 14:46-0500Heart rate58 /minMer[facility] 05-13-2024 14:46-0500Mean blood ywxllitx21 mm[Hg][facility]01-22-2025 14:46-0500Respiratory rate16 /minFirst[facility]juliaWVUM[facility]01-22-2025 14:46-9176RpF1% (BldA) [Mass fraction]95 %[facility]01-22-2025 14:46-0500Systolic blood bsmuusbi31 mm[Hg][facility]09-19-2024 10:38-0400Body .88 [degF][facility]09-19-2024 10:38-0400Diastolic blood ttvkpiym08 mm[Hg][facility]09-19-2024 10:38-0400Heart rate61 /minMer[facility]09-19-2024 10:38-0400Mean blood oryfhnju08 mm[Hg][facility]09-19-2024 10:38-0400 Respiratory rate16 /minMer[facility]09-19-2024 10:38-8631MfD7% (BldA) [Mass fraction]96 %[facility]09-19-2024 10:38-0400Systolic blood lrgshkwa325 mm[Hg][facility]05-23-2024 10:19-0400Body kikmvnewhzp30.88 [degF][facility]05-23-2024 10:19-0400 Diastolic blood zzlcumnr74 mm[Hg][facility] 09-12-2023 10:19-0400Heart rate61 /minMer[facility]05-23-2024 10:19-0400Mean blood xtmknzzy77 mm[Hg][facility]05-23-2024 10:19-0400Respiratory rate18 /minMer[facility]05-23-2024 10:19-6375CqZ8% (BldA) [Mass fraction]99 %[facility]05-23-2024 10:19-0400 Systolic blood zviizyen795 mm[Hg][facility] 08-30-2023 08:10-0400Body jmiuyy346.02 cmMD Rugkeith [employer] Work Phone: [facility]05-10-2024 08:10-0400 Body .64 kgMD Mary [employer] Work Phone: [facility]02-21-2024 10:55-0500 Body ekvfrvzsrvs23.06 [degF][facility] 06-12-2023 10:55-0500Diastolic blood mm[Hg][facility]02-21-2024 10:55-0500Heart rate68 /[facility] 10:55-0500Mean blood usoivaqh72 mm[Hg] [facility]02-21-2024 10:55-0500Respiratory rate16 /minMer[facility]02-21-2024 10:55-0500 SaO2% (BldA) [Mass fraction]97 %[facility] 06-12-2023 10:55-0500Systolic blood kaztvbhd203 mm[Hg][facility]02-09-2024 08:36-0500Body knwlao147.02 cmMD Rugen Jennifer Work Phone: [facility]02-09-2024 08:36-0500 Body yxzllx09.18 kgMD Rugen [employer] Work Phone: [facility]01-10-2024 14:03-0500 Heart rate70 /minMer[facility]01-10-2024 14:03-2975JgK2% (BldA) [Mass fraction]98 %[facility]01-10-2024 14:02-0500Body powhdefxxay37.24 [degF][facility]juliaWVUM[facility]01-10-2024 14:02-0500Diastolic blood awbcpgok76 mm[Hg][facility]01-10-2024 14:02-0500Mean blood qpdzonqo25 mm[Hg][facility]01-10-2024 14:02-0500Systolic blood mm[Hg][facility]10-11-2023 14:25-0400Heart rate76 /minMer[facility]10-11-2023 14:25-5505BqW6% (BldA) [Mass fraction]96 %[facility]10-11-2023 14:25-0400Diastolic blood qgfzarcs27 mm[Hg][facility]10-11-2023 14:25-0400Mean blood jqnbfpci25 mm[Hg][facility]10-11-2023 14:25-0400Systolic blood pdercurr960 mm[Hg][facility]10-11-2023 14:25-0400Body dbsgnzilfnu22.7 [degF] [facility]10-11-2023 14:00-0400Blood Pressure LocationMer[facility] St[facility]10-11-2023 14:00-0400Respiratory rate16 /minMer[facility] 12-23-2022 10:15-0400Hourly RoundingNic OMARCELLOWU [facility]09-03-2023 10:15-0400 Promise to ReturnNic OMARCELLOWU [facility]09-03-2023 09:00-0400 Hourly RoundingMbanefo OJUKWU [address] [place], [place] [id number] 09:00-0400 Promise to ReturnMbanefo OJUKWU [address] [place], [place] [id number] 08:46-0400 Diastolic blood jhelfrgn48 mm[Hg]Mbanefo OJUKWU [address] [place], [place] [id number] 08:46-0400 Systolic blood ycygvcki38 mm[Hg]Mbanefo OJUKWU [address] [place], [place] [id number] 08:40-0400gluc 111 mg/dLMbanefo OJUKWU [address] [place], [place] [id number] 08:37-0400Heart rate56 /minMbanefo OJUKWU [address] [place], [place] [id number] 08:37-6256AeA5% (BldA) [Mass fraction]96 %Mbanefo OJUKWU [address] [place], [place] [id number] 08:37-0400 Respiratory rate18 /minMbanefo OJUKWU [address] [place], [place] [id number] 08:37-0400Body fujqdbekgcu03.88 [degF]Mbanefo OJUKWU [address] [place], [place] [id number] 08:37-0400 Diastolic blood odcoglyn53 mm[Hg]Mbanefo OJUKWU [address] [place], [place] [id number] 08:37-0400Mean blood wqktoqyz86 mm[Hg]Mbanefo OJUKWU [address] [place], [place] [id number] 08:37-0400 Systolic blood ougbkklt30 mm[Hg]Mbanefo OJUKWU [address] [place], [place] [id number] 08:00-0400 Hourly RoundingMbanefo OJUKWU [address] [place], [place] [id number] 08:00-0400 Promise to ReturnMbanefo OJUKWU [address] [place], [place] [id number] 23:44-0400Heart rate58 /minMbanefo OJUKWU [address] [place], [place] [id number] 23:44-5271ZlD6% (BldA) [Mass fraction]97 %Mbanefo OJUKWU [address] [place], [place] [id number] 23:44-0400Body akziwuxwixl52.06 [degF]Mbanefo OJUKWU [address] [place], [place] [id number] 23:44-0400 Diastolic blood noysfiiy09 mm[Hg]Mbanefo OJUKWU [address] [place], [place] [id number] 23:44-0400Mean blood mhopxnuy18 mm[Hg]Mbanefo OJUKWU [address] [place], [place] [id number] 23:44-0400 Systolic blood objhsera01 mm[Hg]Mbanefo OJUKWU [address] [place], [place] [id number] 19:33-0400Heart rate62 /minMbanefo OJUKWU [address] [place], [place] [id number] 19:33-6513FwK5% (BldA) [Mass fraction]97 %Mbanefo OJUKWU [address] [place], [place] [id number] 19:33-0400Body mnvwtnhuvsw89.24 [degF]Mbanefo OJUKWU [address] [place], [place] [id number] 19:32-0400Mean blood zqyzfmmk02 mm[Hg]Mbanefo OJUKWU [address] [place], [place] [id number] 16:03-0400gluc 129 mg/dLMbanefo OJUKWU [address] [place], [place] [id number] 15:46-0400 Respiratory rate16 /minMbanefo OJUKWU [address] [place], [place] [id number] 11:52-0400gluc 158 mg/dLMbanefo OJUKWU [address] [place], [place] [id number] 11:13-0400 Respiratory rate13 /minMbanefo OJUKWU [address] [place], [place] [id number] 06:56-0400Blood Pressure LocationMbanefo OJUKWU [address] [place], [place] [id number] 06:56-0400Body bqisklkbfto60.42 [degF]Mbanefo OJUKWU [address] [place], [place] [id number] 06:56-0400Mean blood osfayhxo05 mm[Hg]Mbanefo OJUKWU [address] [place], [place] [id number] 23:00-0400Blood Pressure LocationMbanefo OJUKWU [address] [place], [place] [id number] 23:00-0400Body oxofbfpnwcs39.96 [degF]Mbanefo OJUKWU [address] [place], [place] [id number] 23:00-0400Mean blood mwlqnarn10 mm[Hg]Mbanefo OJUKWU [address] [place], [place] [id number] 05:35-0400Mean blood dklvuybt89 mm[Hg]Mbanefo OJUKWU [address] [place], [place] [id number] 21:08-0400Body epbjoqrvnpl48.7 [degF]Mbanefo OJUKWU [address] [place], [place] [id number] 21:08-0400Heart rate65 /minMbanefo OJUKWU [address] [place], [place] [id number] 15:06-0400Heart rate75 /minMbanefo OJUKWU [address] [place], [place] [id number] 00:45-0400 Diastolic blood lxvtvuhc53 mm[Hg]David Tong [address] [place], [place] [id number] 00:45-0400Heart rate76 /minTim Ran [address] [place], [place] [id number] 00:45-0400Mean blood mhipmvfw06 mm[Hg]David Tong [address] [place], [place] [id number] 00:45-0400 Respiratory rate14 /minTim Ran [address] [place], [place] [id number] 00:45-6878GvR1% (BldA) [Mass fraction]100 %David Tong [address] [place], [place] [id number] 00:45-0400 Systolic blood jbtoftsc884 mm[Hg]David Tong [address] [place], [place] [id number] 00:15-0400 Diastolic blood vpllezcm31 mm[Hg]David Tong [address] [place], [place] [id number] 00:15-0400Heart rate71 /minDavid Tong [address] [place], [place] [id number] 00:15-0400Mean blood yzlrlpfk46 mm[Hg]David Tong [address] [place], [place] [id number] 00:15-0400 Respiratory rate14 /minDavid Tong [address]08-31-2023 00:15-1856IxZ5% (BldA) [Mass fraction]92 %David Tong [address]08-31-2023 00:15-0400 Systolic blood lyyvnywh344 mm[Hg]David Tong [address]08-30-2023 23:45-0400 Diastolic blood wojizxnz83 mm[Hg]David Tong [address]08-30-2023 23:45-0400Heart rate80 /minDavid Tong [address]08-30-2023 23:45-0400Mean blood mm[Hg]David Tong [address] [place], [place] [id number] 23:45-0400 Respiratory rate16 /minDavid Tong [address] [place], [place] [id number] 23:45-8503IyH1% (BldA) [Mass fraction]97 %David Tong [address] [place], [place] [id number] 23:45-0400 Systolic blood clbaqfkb184 mm[Hg]David Tong [address] [place], [place] [id number] 20:41-0400Body dcqijgspekz63.24 [degF]David Tong [address] [place], [place] [id number] 20:41-0400Heart rate82 /minTim Ran [facility]08-30-2023 20:41-0400 Respiratory rate20 /minDavid Tong [address] [place], [place] [id number] 13:20-0400 Diastolic blood jdlyibyj58 mm[Hg]Jeffery Murphy [address] [place], [place] [id number] 13:20-0400Heart rate60 /minJeffery Murphy [address] [place], [place] [id number] 13:20-0400 Hourly RoundingJeffery Murphy [address] [place], [place] [id number] 13:20-0400Mean blood apzginyd32 mm[Hg]Jeffery Murphy [address]08-28-2023 13:20-0400 Promise to ReturnJeffery Murphy [address] [place], [place] [id number] 13:20-9485FkR6% (BldA) [Mass fraction]97 %Jeffery Murphy [address] [place], [place] [id number] 13:20-0400 Systolic blood ahpdtbyg404 mm[Hg]Jeffery Murphy [address] [place], [place] [id number] 12:20-0400 Diastolic blood puxnfgfn70 mm[Hg]Jeffery Murphy [address] [place], [place] [id number] 12:20-0400Heart rate71 /minJodiamante Murphy [address] [place], [place] [id number] 12:20-0400 Hourly RoundingJeffery Murphy [address] [place], [place] [id number] 12:20-0400Mean blood qxiorhwy29 mm[Hg]Jeffery Murphy [address] [place], [place] [id number] 12:20-0400 Promise to ReturnJeffery Murphy [address] [place], [place] [id number] 12:20-8757CvD6% (BldA) [Mass fraction]96 %Jeffery Murphy [address] [place], [place] [id number] 12:20-0400 Systolic blood efncucqo168 mm[Hg]Jeffery Murphy [address] [place], [place] [id number] 11:21-0400 Hourly RoundingJeffery Murphy [address] [place], [place] [id number] 11:21-0400 Promise to ReturnJeffery Murphy [address] [place], [place] [id number] 11:20-0400 Diastolic blood uenvrvev13 mm[Hg]Jeffery Murphy [address] [place], [place] [id number] 11:20-0400Heart rate68 /minJeffery Murphy [address] [place], [place] [id number] 11:20-0400Mean blood mdsaxews16 mm[Hg]Jeffery Murphy [address] [place], [place] [id number] 11:20-0400 Respiratory rate18 /minJeffery Castelane [address] [place], [place] [id number] 11:20-6360PjG0% (BldA) [Mass fraction]96 %Jeffery Murphy [address] [place], [place] [id number] 11:20-0400 Systolic blood mm[Hg]Jeffery Murphy [address] [place], [place] [id number] 10:22-0400Body swjqgcydomq69.88 [degF]Jeffery Murphy [address] [place], [place] [id number] 10:22-0400Heart rate69 /minJohn Katherine [address]08-28-2023 10:22-0400 Respiratory rate18 /minJohn Katherine [address] [place], [place] [id number] 14:00-0400 Hourly RoundingRonobir JESSICA [address] [place], [place] [id number] 13:40-0400 Hourly RoundingRonobir JESSICA [address] [place], [place] [id number] 13:40-0400 Promise to ReturnRonobir JESSICA [address] [place], [place] [id number] 13:00-0400 Hourly RoundingRonobir JESSICA [address] [place], [place] [id number] 12:26-0400 Promise to ReturnRonobir JESSICA [address]07-16-2023 11:48-0400Heart rate78 /minRonobir JESSICA [address] [place], [place] [id number] 11:48-1553EiS9% (BldA) [Mass fraction]95 %Ronobir JESSICA [address] [place], [place] [id number] 11:48-0400 Diastolic blood cmixvnaf24 mm[Hg]Ronobir JESSICA [address] [place], [place] [id number] 11:48-0400Mean blood sswbuhei01 mm[Hg]Ronobir JESSICA [address] [place], [place] [id number] 11:48-0400 Systolic blood lyvfrhed030 mm[Hg]Ronobir JESSICA [address] [place], [place] [id number] 11:48-0400Body tmgkyhskhdp67.24 [degF]Ronobir JESSICA [address] [place], [place] [id number] 11:17-0400 Promise to ReturnRonobir JESSICA [address] [place], [place] [id number] 08:24-0400 Diastolic blood asscqsay16 mm[Hg]Ronobir JESSICA [address] [place], [place] [id number] 08:24-0400 Systolic blood myvyfsbu189 mm[Hg]Ronobir JESSICA [address] [place], [place] [id number] 07:32-0400Heart rate77 /minRonobir JESSICA [address] [place], [place] [id number] 07:32-7749EjV5% (BldA) [Mass fraction]94 %Ronobir JESSICA [address]07-16-2023 07:31-0400Body posahfbtvvc63.7 [degF]Ronobir JESSICA [address] [place], [place] [id number] 07:31-0400 Diastolic blood zffheafl53 mm[Hg]Ronobir JESSICA [address] [place], [place] [id number] 07:31-0400Mean blood wpabwypu07 mm[Hg]Ronobir JESSICA [address] [place], [place] [id number] 07:31-0400 Systolic blood ppzwiwst688 mm[Hg]Ronobir JESSICA [address] [place], [place] [id number] 23:16-0400Heart rate79 /minRonobir JESSICA [address] [place], [place] [id number] 23:16-5167BoU9% (BldA) [Mass fraction]97 %Ronobir JESSICA [address] [place], [place] [id number] 23:16-0400Mean blood gcqjpwwa317 mm[Hg]Ronobir JESSICA [address] [place], [place] [id number] 23:15-0400Body cvhfkwpyfug00.7 [degF]Ronobir JESSICA [address] [place], [place] [id number] 20:00-0400Blood Pressure LocationRonobir JESSICA [address] [place], [place] [id number] 20:00-0400 Respiratory rate21 /minRonobir JESSICA [address] [place], [place] [id number] 09:00-0400Mean blood mm[Hg]Ronobir JESSICA [address] [place], [place] [id number] 09:00-0400 Respiratory rate16 /minRonobir JESSICA [address] [place], [place] [id number] 21:15-0400Mean blood wloztyaq92 mm[Hg]Ronobir JESSICA [address]07-14-2023 11:51-0400 Respiratory rate18 /minRonobir JESSICA [address] [place], [place] [id number] 03:50-0400Heart rate68 /minRonobir JESSICA [address] [place], [place] [id number] 03:18-0400 Respiratory rate10 /minRonobir JESSICA [address] [place], [place] [id number] 02:38-0400 Nursing Progress Note ReasonOther: pt complains of back pain. repositioned in bed. medicated for pain.Ronobir JESSICA [address] [place], [place] [id number] 02:38-0400 Respiratory rate7 /minRonobir JESSICA [facility]07-14-2023 02:37-0400Heart rate73 /minRonobir JESSICA [address] [place], [place] [id number] 23:15-0400 Nursing Progress Note ReasonOther: trauma made medical at this time. mini cath done and urine sent to lab. pt repositioned in bedRonobir JESSICA [address] [place], [place] [id number] 22:53-0400Body sbyuxxdihsc76.62 [degF]Ronobir JESSICA [facility]07-13-2023 22:53-0400Heart rate74 /minRonobir JESSICA [facility]07-13-2023 22:03-0400Heart rate69 /minRonobir JESSICA [address] [place], [place] [id number] 13:00-0400[facility]12[facility] 13:00-0400Body ovaoholdwyd20.6 [degF][facility]04-12-2023 13:00-0400Diastolic blood mm[Hg][facility]04-12-2023 13:00-0400Heart rate76 /[facility]04-12-2023 13:00-0400Mean blood pressure 101 mm[Hg][facility]04-12-2023 13:00-0400 Respiratory rate16 /min[facility]04-12-2023 13:00-5383AgP3% (BldA) [Mass fraction]97 %[facility]04-12-2023 13:00-0400Systolic blood iamswiqf413 mm[Hg][facility]02-15-2023 12:59-0500Heart rate61 /min [facility]opoldo [facility]-15-2023 12:59-6842NeW3% (BldA) [Mass fraction]98 %[facility]-15-2023 12:59-0500Respiratory rate16 /min[facility] 06-06-2022 12:59-0500Body aecnouhatzy01.7 [degF][facility]02-15-2023 12:58-0500Diastolic blood lpvptnbu463 mm[Hg][facility]02-15-2023 12:58-0500Mean blood pressure 116 mm[Hg][facility]02-15-2023 12:58-0500 Systolic blood zjkrmfuy860 mm[Hg][facility] 03-28-2022 14:10-0500Heart rate66 /minMer[facility]12-07-2022 14:10-9306KeL1% (BldA) [Mass fraction]96 %[facility]12-07-2022 14:09-0500Body hfdspnpcveh01.42 [degF] [facility]12-07-2022 14:09-0500Diastolic blood mm[Hg][facility]12-07-2022 14:09-0500Mean blood idmpmsxd63 mm[Hg][facility]12-07-2022 14:09-0500Systolic blood zlzticku871 mm[Hg][facility]WV[facility]12-07-2022 14:09-0500Blood Pressure LocationMer[facility]12-07-2022 14:09-0500Body temperature 98.42 [degF][facility]12-07-2022 14:09-0500 Mean blood zqekrkyz70 mm[Hg][facility] 03-28-2022 14:09-0500Respiratory rate18 /minMer[facility]09-29-2022 14:13-0400[facility]09-29-2022 14:13-0400Body eucbvpjpmlw47.06 [degF] [facility]09-29-2022 14:13-0400BP/Pulse Patient PositionMer[facility] St[facility]09-29-2022 14:13-0400Diastolic blood ehxvojaa13 mm[Hg][facility] [facility]29[facility]22 14:13-0400Heart rate59 /[facility] 14:13-0400Mean blood nutrwztm17 mm[Hg][facility]09-29-2022 14:13-0400Respiratory rate16 /min[facility]09-29-2022 14:13-5832IkX0% (BldA) [Mass fraction]98 %[facility] 01-18-2022 14:13-0400Systolic blood gfzgajdz248 mm[Hg][facility]09-01-2022 13:34-0400Blood Pressure LocationNohemi Garcia [address] [place], [place] [id number] 13:34-0400Body muifwfiskyw07.6 [degF]Nohemi Garcia [facility]09-01-2022 13:34-0400 BP/Pulse Patient PositionNohemi Garcia [facility]09-01-2022 13:34-0400 Diastolic blood iibvblso61 mm[Hg]Nohemi Garcia [address] [place], [place] [id number] 13:34-0400Heart rate67 /Sudeep Garcia [address] [place], [place] 6795209-01-2022 13:34-0400Mean blood lypbwfja866 mm[Hg]Nohemi Garcia [address]09-01-2022 13:34-0400 Respiratory rate18 /minNohemi Garcia [address]09-01-2022 13:34-2408BeI0% (BldA) [Mass fraction]93 %Nohemi Garcia [address]09-01-2022 13:34-0400 Systolic blood oynprilh712 mm[Hg]Nohemi Garcia [address]09-01-2022 13:34-0400Mean blood xyhucsgp319 mm[Hg]Nohemi Garcia [address] [place], [place] [id number] 13:16-0400Body udhwmuzkilp87.24 [degF][facility]08-11-2022 13:16-0400Diastolic blood dadhnlhr65 mm[Hg][facility]08-11-2022 13:16-0400Heart rate78 /min[facility]08-11-2022 13:16-0400Mean blood fcfybtyh53 mm[Hg][facility]08-11-2022 13:16-2109QxK3% (BldA) [Mass fraction]96 %[facility]08-11-2022 13:16-0400 Systolic blood uctufnnx556 mm[Hg][facility] 11-30-2021 13:00-0400Blood Pressure LocationMer[facility]08-11-2022 13:00-0400Respiratory rate16 /minTimothy Adamowicz [facility]07-14-2022 11:53-0400Blood Pressure LocationNohemi Garcia [address] [place], [place] [id number] 11:53-0400Body ozttzyuxkxr82.06 [degF]Nohemi Garcia [address] [place], [place] [id number] 11:53-0400 BP/Pulse Patient PositionNohemi Garcia [address] [place], [place] [id number] 11:53-0400 Diastolic blood yyarsymo58 mm[Hg]Nohemi Garcia [address]07-14-2022 11:53-0400Heart rate64 /Sudeep Garcia [address]07-14-2022 11:53-0400Mean blood mm[Hg]Nohemi Garcia [address] [place], [place] 6795207-14-2022 11:53-0400 Respiratory rate17 /Sudeep Garcia [address] [place], [place] [id number] 11:53-9950AnK8% (BldA) [Mass fraction]97 %Nohemi Garcia [address] [place], [place] 6795207-14-2022 11:53-0400 Systolic blood tfurseca395 mm[Hg]Nohemi Garcia [address] [place], [place] 6795206-16-2022 13:46-0400Body msmocixcwtg43.42 [degF][facility]06-16-2022 13:46-0400Diastolic blood jtywctdx95 mm[Hg][facility]il [facility]aSum[facility]06-16-2022 13:46-0400Heart rate69 /[facility]2022 13:46-0400Mean blood ravndxwd800 mm[Hg][facility]06-16-2022 13:46-2438EdU4% (BldA) [Mass fraction]96 %[facility]06-16-2022 13:46-0400 Systolic blood toeqxzqs530 mm[Hg][facility] 09-07-2021 12:48-0400Body upnllsichow73.6 [degF][facility]05-19-2022 12:48-0400Diastolic blood vnwzsnxy33 mm[Hg][facility]05-19-2022 12:48-0400Heart rate72 /min [facility]05-19-2022 12:48-0400Mean blood badjuynd08 mm[Hg][facility]05-19-2022 12:48-0062DoD0% (BldA) [Mass fraction]96 %[facility]05-19-2022 12:48-0400Systolic blood yisjscgj129 mm[Hg][facility]05-19-2022 12:00-0400Heart rate69 /min [facility]05-19-2022 12:00-6184HtO4% (BldA) [Mass fraction]98 %[facility]05-15-2022 00:20-0400Body scqfjhmjicq16.78 [degF]Carlos Martin [facility]05-15-2022 00:20-0400 Diastolic blood mm[Hg]Carlos Martin [facility]05-15-2022 00:20-0400Heart rate86 /minNoah Martin [facility]05-15-2022 00:20-0400 Respiratory rate16 /minNoah Martin [facility]05-15-2022 00:20-9475OyV8% (BldA) [Mass fraction]95 %Carlos Salazar [facility]05-15-2022 00:20-0400 Systolic blood gnpvviwh720 mm[Hg]Carlos Salazar [facility]04-21-2022 12:35-0400Body xviyeryhchn08.06 [degF]Rickey Askew [facility]04-21-2022 12:35-0400 Diastolic blood rymrljgu05 mm[Hg]Rickey Askew [facility]04-21-2022 12:35-0400Heart rate77 /minPeter Azar [facility]04-21-2022 12:35-0400Mean blood dwxzibyx24 mm[Hg]Rickey Askew [facility]04-21-2022 12:35-0400 Respiratory rate12 /minPeter Askew [facility]04-21-2022 12:35-6024VhD1% (BldA) [Mass fraction]97 %Rickey Askew [facility]04-21-2022 12:35-0400 Systolic blood mm[Hg]Rickey Askew [facility]04-06-2022 10:27-0400Body bmqxobbdehp52.88 [degF][facility]04-06-2022 10:27-0400Diastolic blood mm[Hg]Senthil CalderaSum[facility] Health04-06-2022 10:27-0400Heart rate59 /minSenthil [facility]idayUpper [facility]04-06-2022 10:27-0400Mean blood zgiaazwk555 mm[Hg][facility]04-06-2022 10:27-5071YoB0% (BldA) [Mass fraction]97 %[facility]04-06-2022 10:27-0400 Systolic blood mm[Hg][facility] 07-26-2021 10:00-0400Respiratory rate16 /minMer[facility]03-29-2022 12:18-0400Body .7 [degF][facility]03-29-2022 12:18-0400Diastolic blood rqypltgs39 mm[Hg][facility]03-29-2022 12:18-0400Heart rate60 /minMer[facility]03-29-2022 12:18-0400 Mean blood hldlharu510 mm[Hg][facility] 07-18-2021 12:18-1288MfD0% (BldA) [Mass fraction]98 %[facility]03-29-2022 12:18-0400Systolic blood tcqmrmvy029 mm[Hg] [facility]03-29-2022 12:00-0400Respiratory rate16 /minMer[facility]03-22-2022 10:20-0400 Body puojwzwscyf11.7 [degF]Gavino TABOR [phone]-RqngaMarietta Osteopathic [facility] Outing Encounters Encounter DateEncounter TypeCare ProviderFacilityStart: 02-24-2025 End: 49-68-3325Bditmuywl Result Mirza Rodriguez MD Work Phone: NOTR External Department UnsolicitedStart: 02-24-2025 End: 17-26-9362Huywbjeir Result Mirza Rodriguez MD Work Phone: noms External Department UnsolicitedStart: 01-27-2025 End: 81-31-2672Wbqteayvv Result EncounterMary Rodriguez MD Work Phone: noms External Department UnsolicitedStart: 01-27-2025 End: 83-29-7138Miffagvzr Result EncounterMary Rodriguez MD Work Phone: noms External Department UnsolicitedStart: 12-15-2024 End: 84-00-7376nhojihjsylFnpdrhw AdamowiczFacility:FTMCStart: 11-17-2024 End: 91-74-7135godrrijkwnFsiahcv AdamowiczFacility:FTMCStart: 10-20-2024 End: 12-98-2236ztgispfrooZdxvjtp AdamowiczFacility:FTMCStart: 10-20-2024 End: 70-90-2149Kwelndd encounter procedureSenthil CalderaSumma Health Start: 09-30-2024 End: 39-14-4484Effavoun Result EncounterSenthil Caldera DO Work Phone: noms External Department UnsolicitedStart: 09-30-2024 End: 43-51-9342Oeobwahz Result EncounterSenthil Caldera DO Work Phone: noms External Department UnsolicitedStart: 09-30-2024 End: 70-16-2617Cdlvbyp encounter procedureMary Rodriguez MD Work Phone: [facility] Work Phone: Start: 09-30-2024 End: 49-43-1190fzbvbidojvLvpar M Alda MD Work Phone: [facility] Work Phone: Start: 09-22-2024 End: 56-62-5679htaomjcsqaYjwdosi AdamowiczFacility:FTMCStart: 09-22-2024 End: 02-60-9788Strudob encounter procedureTimothy [facility] Start: 09-09-2024 End: 02-36-7996tlwtivntbhMmqfzet AdamowiczFacility:FTMCStart: 09-09-2024 End: 44-00-1175Ollzgwn [facility] Start: 08-25-2024 End: 82-92-0375rteoncxerpGnifcxy AdamowiczFacility:FTMCStart: 08-25-2024 End: 48-32-5995Rbbnwnr encounter procedureCritical Access Hospitalleopoldo [facility] Start: 08-17-2024 End: 82-03-4796Ptmojeih Result EncounterSenthil Jodi Verenice DO Work Phone: n[facility] External Department UnsolicitedStart: 08-17-2024 End: 85-32-4137Nwqwxpsf Result EncounterSenthil Caldera DO Work Phone: n[facility] External Department UnsolicitedStart: 08-17-2024 End: 67-68-2753Rzamvld encounter procedureMary Rodriguez MD Work Phone: [facility] Work Phone: Start: 08-17-2024 End: 16-60-1743jyigkrrfzkGfirg M Alda MD Work Phone: [facility] Work Phone: Start: 07-28-2024 End: 89-34-4138cphnuvtgwtKivyyuo AdamowiczFacility:FTMCStart: 07-28-2024 End: 61-82-8105Ccyjlla encounter procedureCritical Access Hospitalleopoldo [facility] Start: 06-30-2024 End: 82-32-3591ldajcoojcmSymtsew AdamowiczFacility:FTMCStart: 06-30-2024 End: 71-57-5941Auzkndf [facility] Start: 06-02-2024 End: 22-60-7387vstdltgimiKfkmtns AdamowiczFacility:FTMCStart: 06-02-2024 End: 18-86-3110Pafuiqg [facility] procedureMer[facility] Start: 05-13-2024 End: 77-54-5860siaehtcpdjPhazapj AdamowiczFacility:FTMCStart: 05-13-2024 End: 25-12-1390Jjtilbi encounter procedureMer[facility] Start: 05-05-2024 End: 18-43-4050uvjxgzznlyGaqykib AdamowiczFacility:FTMCStart: 05-05-2024 End: 07-58-1007Ktsvbug encounter procedureMer[facility] Start: 04-29-2024 End: 89-72-2328Ouqawock Result EncounterSenthil Caldera DO Work Phone: noms External Department UnsolicitedStart: 04-29-2024 End: 92-62-4832Pbwfmcxc Result EncounterTimleopoldo Caldera DO Work Phone: noms External Department UnsolicitedStart: 04-29-2024 End: 46-63-8357Nfpgzbp encounter procedureMary Rodriguez MD Work Phone: [facility] Work Phone: Start: 04-29-2024 End: 67-18-7017hutfjjvhpgFgsde M Alda MD Work Phone: [facility] Work Phone: Start: 04-07-2024 End: 80-74-1701ityceawkoqMbekqun AdamowiczFacility:FTMCStart: 04-07-2024 End: 93-89-1396Tdlsrzj [facility] procedureMer[facility] Start: 03-10-2024 End: 20-68-1718cdezosnerxFckewkr AdamowiczFacility:FTMCStart: 03-10-2024 End: 42-46-7153Ccvssrx encounter procedureMer[facility] Start: 02-25-2024 End: 46-93-4253imwaeiqwkoInosltu AdamowiczFacility:FTMCStart: 02-25-2024 End: 09-90-1490Zjftzdm [facility] procedureMer[facility] Start: 02-11-2024 End: 41-06-3964jzmctfyikrDwsnrzl AdamowiczFacility:FTMCStart: 02-11-2024 End: 24-68-8599Ruqjunp encounter procedureMer[facility] Start: 01-09-2024 End: 11-83-6713ngjlorvnhkDrnykfu AdamowiczFacility:FTMCStart: 01-09-2024 End: 55-38-4243Kendwvp [facility] procedureMer[facility] Start: 01-01-2024 End: 82-04-8931Xhqjiiyhs Result EncounterMary Rodriguez MD Work Phone: n[facility] External Department UnsolicitedStart: 01-01-2024 End: 95-53-9582Lvqwpegss Result EncounterMary Rodriguez MD Work Phone: noms External Department UnsolicitedStart: 12-30-2023 End: 74-40-9738Dvtgywgq Result EncounterSenthil Caldera DO Work Phone: n[facility] External Department UnsolicitedStart: 12-30-2023 End: 43-14-3768Keqncfbm Result EncounterSenthil Caldera DO Work Phone: n[facility] External Department UnsolicitedStart: 12-30-2023 End: 30-26-5781Zjywlpr encounter procedureMD Mary Rodriguez Work Phone: [facility] Work Phone: Start: 12-30-2023 End: 50-74-0265towescsfnqRH Mary Rodriguez Work Phone: [facility] Work Phone: Start: 12-27-2023 End: 13-36-4026Tcpkzknef Result EncounterMary Rodriguez MD Work Phone: noms External Department UnsolicitedStart: 12-27-2023 End: 63-53-3272Cwfuwmtfm Result EncounterMary Rodriguez MD Work Phone: [facility] External Department UnsolicitedStart: 09-12-2023 End: 60-81-3408tmqiazrtdcZbrtecb VereniceFacility:FTMCStart: 09-12-2023 ambulatoryTimothy VereniceFacility:FTMCStart: 09-12-2023 End: 43-97-5066Jwgacqk encounter procedureCritical Access Hospitalleopoldo [facility] Start: 08-30-2023 End: 48-68-4838kspbcdquuyZM Mary Merly Rodriguez Work Phone: [facility] Work Phone: Start: 08-30-2023 End: 12-16-4064Onnstqs encounter procedureMD Mary Rodriguez Work Phone: [facility] Work Phone: Start: 06-12-2023 End: 80-04-7696qwqvimprtuOiqevoq VereniceFacility:FTMCStart: 06-12-2023 End: 09-64-8432Ajlrzuw encounter procedureTimleopoldo [facility] Start: 30-21-9057Cxsecvlww Result EncounterMary Rodriguez MD Work Phone: n[facility] External Department UnsolicitedStart: 06-05-2023 Clinisync Result EncounterMary Rodriguez MD Work Phone: noms External Department UnsolicitedStart: 05-31-2023 External Result EncounterTimleopoldo Caldera DO Work Phone: noms External Department UnsolicitedStart: 05-31-2023 External Result EncounterTimleopoldo Caldera DO Work Phone: noms External Department UnsolicitedStart: 05-31-2023 End: 02-71-2851krofybmggwSA Mary Rodriguez Work Phone: [facility] Work Phone: Start: 05-31-2023 End: 01-88-0060Jwzszko encounter procedureMD Mary Rodriguez Work Phone: [facility] Work Phone: Start: 42-44-8292Snbifmace Result EncounterMary Rodriguez MD Work Phone: noms External Department UnsolicitedStart: 05-24-2023 Clinisync Result EncounterMary Rodriguez MD Work Phone: [facility] External Department UnsolicitedStart: 05-01-2023 End: 35-56-8694peirqcfojoIvxivbe AdamowiczFacility:FTMCStart: 05-01-2023 End: 91-50-5329Pmztsrs encounter procedureSenthil [facility] Start: 01-30-2023 End: 25-41-6513bvqhypdtqdHnzsnzg AdamowiczFacility:FTMCStart: 01-30-2023 End: 41-75-9259Oozxcvl encounter procedureSenthil [facility] Start: 12-20-2022 End: 50-58-1049Ehywxinqnk and management of inpatientZaheer Sloan Facility:FTMCStart: 12-20-2022 End: 10-90-6157Huqksmfmgr and management of inpatientMbbeefo NaborJUKGREER [facility] Start: 12-19-2022 End: 25-09-2731Dwxgfumrw department patient visitTim Ran [facility] Start: 12-17-2022 End: 10-27-4193Oflrogvpv department patient visitJodiamante Murphy [facility] Start: 12-14-2022 End: 59-33-0484sorqmiljsjTwpnhwy HARWOODFacility:CD:[id number]: 12-14-2022 End: 41-91-8821Xgcfow pelvic examinationJeiraj [facility] Start: 82-29-2123mzxfkhiyciMVF- Lorie Slater Facility:CD:[id number]: 11-16-2022 End: 36-65-1699bupqenomdaKrnxpvz VereniceFacility:CD:[id number]: 11-16-2022 End: 37-15-4931Bi-Between VisitPeter [facility] Start: 11-06-2022 End: 05-76-9400oaevuxjrmgYhexitx HARWOODFacility:CD:[id number]: 11-06-2022 End: 48-90-4872Vzz-SiteSammy [facility] Start: 11-04-2022 End: 60-16-6537xgbeafouvtLymzhrw HARWOODFacility:FTMCStart: 11-01-2022 End: 59-52-6342jztbqfjsukXwrcz MocarterawiFacility:FTMCStart: 11-01-2022 End: 81-76-0014HuzworwvzqxFtztrlf Matt LOPEZ [facility] Start: 09-25-2022 End: 79-55-2754Seuykwq [facility] Start: 08-01-2022 End: 03-74-2700Aivofzo [facility]Mer[facility] start: 07-30-2022 End: 58-53-3250Xitsnqo encounter procedureMer[facility] start: 07-25-2022 End: 26-78-1813GphancjrxBbknygeMercy Health St[facility] Start: 07-09-2022 End: 76-21-7104Msbuepe encounter procedureMer[facility] Start: 06-06-2022 End: 81-85-0517Yboscgx encounter procedureMer[facility] start: 03-28-2022 End: 13-76-8318Wzfdyqn encounter procedureMer[facility] Start: 03-17-2022 End: 99-22-6227HmmtitnmeOgpe Katie Demboske [facility] start: 01-18-2022 End: 72-91-6055Yclodlu encounter procedureMer[facility] start: 01-02-2022 End: 06-94-6629JbvkihrmuSgmefisMercy Health St[facility] Start: 12-26-2021 End: 30-12-3148Fbesxyb [facility]TimSub[facility] Start: 12-21-2021 End: 38-55-5475Rmrnuac encounter procedureNohemi Rajani Radha [facility] Start: 11-30-2021 End: 42-19-2412Pkzxbwk encounter procedureTimSub[facility] Start: 11-27-2021 End: 51-10-8055Kykvppi encounter procedureMer[facility] start: 11-25-2021 End: 21-40-2150GyoxilwvvOqjx Katie Radha [facility] Start: 11-02-2021 End: 76-08-4029Djzxjdy encounter procedureNohemi Gerard Radha [facility] Start: 11-01-2021 End: 74-49-9910Nqhwtuu encounter procedureTimSub[facility] Start: 10-05-2021 End: 47-88-7832Gncdrhj [facility]Mer[facility] start: 10-02-2021 End: 78-73-3719Ufgmpcm encounter procedureMer[facility] start: 09-07-2021 End: 92-47-1528Ildkguz encounter procedureMer[facility] Start: 09-03-2021 End: 27-27-5181Qijwqgkpd department patient visitAdrianageetha Salazar [facility] Start: 08-21-2021 End: 87-54-4308Xopimxs encounter [facility]Mer[facility] Start: 08-21-2021 End: 72-44-1718Frrzfjt encounter procedureMer[facility] Start: 08-10-2021 End: 11-05-1755Koniiva encounter procedureRickey Askew [facility] Start: 08-07-2021 End: 10-42-6671Emauvls encounter procedureMer[facility] Start: 07-26-2021 End: 03-08-7583Jpmqalz [facility] procedureMer[facility] Start: 07-26-2021 End: 50-91-1132Irsnzqq encounter procedureMer[facility] Start: 07-25-2021 End: 93-69-8773Rwq-admission assessmentMichael R NILL [facility] Start: 07-18-2021 End: 61-78-6376Wsfkqnm encounter procedureMer[facility] Start: 07-11-2021 End: 75-70-7434Siumhwh encounter procedureMichael R NILL [phone]-MvaqwMarietta Osteopathic Clinic General Surgery Outing Procedures DateProcedureProcedure DetailPerforming ClinicianStart: 38-11-6534OYV LEN Rodriguez MD Work Phone: Start: 27-71-1418SDC Pepe Rodriguez MD Work Phone: Start: 93-04-1961QESIFKT POCT GLUCOMETERSTimothy Jodi Caldera DO Work Phone: Start: 74-80-0063Sxungdel emission tomography with computed tomographyMary Rodriguez MD Work Phone: Start: 26-94-5998CXJCMRZ POCT GLUCOMETERSTimothy J Verenice DO Work Phone: Start: 04-32-6411Slfrdaim emission tomography with computed tomographyMary Rodriguez MD Work Phone: Start: 68-68-9571OEYZPLI POCT GLUCOMETERSTimothy Jodi Caldera DO Work Phone: Start: 66-18-6514Hzxiahtn emission tomography with computed tomographyMary Rodriguez MD Work Phone: Start: 25-19-2452GIS CBC WITH AUTO DIFFRtoño Rodriguez MD Work Phone: Start: 17-59-6406HVCBOJT POCT GLUCOMETERSTimothy Jodi Caldera DO Work Phone: Start: 10-80-2613Rbdivkcp emission tomography with computed tomographyMD Rugkeith Empire Work Phone: Start: 13-73-1974YIM CBC WITH AUTO DIFFRtoño Rodriguez MD Work Phone: Start: 60-45-3919Sshdgwfa emission tomography with computed tomographyMD Rugkeith Jennifer Work Phone: Start: 02-46-2547CSZ CBC WITH AUTO DIFFRtoño Rodriguez MD Work Phone: Start: 99-70-4613Jzrjyske emission tomography with computed tomographyMD Mary Empire Work Phone: Start: 29-23-0876DEDRLMH POCT GLUCOMETERSSenthil Caldera DO Work Phone: Start: 53-39-8832QYS CBC WITH AUTO DIFFRneetun Merly Rodriguez MD Work Phone: Start: 60-55-7936Bica needle biopsy of breastMichael NILL Comment on above:rightStart: 77-46-1780OzrlufsccwnQdntr Alda MD Work Phone: Tonsillectomy and adenoidectomyMichael NILL Plan of Treatment DateCare ActivityDetailAuthorStart: 81-06-1630Aiiwjkpbj for malignant neoplasm of colonNOMS HealthcareStart: 73-82-6241BQFLU-19 Vaccine ( season) COVID-19 Vaccine ( season)[facility] HealthcareStart: 66-09-9609Bqzceskdb vaccinationInfluenza Vaccine (#1)[facility] HealthcareStart: 66-44-2303Zqnhviiuo vaccinationInfluenza Vaccine (#1)[facility] HealthcareStart: 31-25-5564Kaado screening for proteinDiabetes: Urine Protein ScreeningNODC HealthcareStart: 01-24-2023 Hemoglobin A1c measurementDiabetes: Hemoglobin B8ZUHDX HealthcareStart: 91-92-9638Vzfzvxjpk vaccinationInfluenza Vaccine (#1)[facility] HealthcareStart: 05-25-2023Medicare Annual Wellness (AWV)Medicare Annual Wellness (AWV)[facility] HealthcareStart: 99-29-6604Euytl screening for proteinDiabetes: Urine Protein ScreeningNOMS HealthcareStart: 96-93-3310Ipbgmrxr screeningDiabetes: Retinopathy ScreeningNOMS HealthcareStart: 23-14-2323Gqsbtrabn for malignant neoplasm of colonNOMS Healthcare Immunizations Immunization DateImmunizationNotesCare KxwugqgsTynrzozb83-83-7186ntftetoze virus vaccine, unspecified formulationMary Rodriguez MD Work Phone: [facility] Opkqjvcoib26-39-9729Lxsavfnqj, High-dose Seasonal, Quadrivalent, Preservative FreeMary Rodriguez MD Work Phone: [facility] SystemGcyibvzubv21-47-0863axpjppjrp virus vaccine, unspecified formulationMary Rodriguez MD Work Phone: [facility] SystemGgqbefzzmn22-70-3084whjydijaq virus vaccine, unspecified formulationMichael NILL [phone]-YsgnhMarietta Osteopathic Clinic General Surgery Outing [id number], high dose seasonal, preservative-freeMary Rodriguez MD Work Phone: [facility] SystemHihkhmkpay95-17-7501adklwrhsd, high dose seasonal, preservative-freeMary Rodriguez MD Work Phone: [facility] SystemQljspimyos73-34-0822rhifitdot, high dose seasonal, preservative-freeMary Rodriguez MD Work Phone: [facility] SystemPkbyzpsrok29-53-2585byfdvkffahux conjugate vaccine, 13 valentRtoño Rodriguez MD Work Phone: [facility] Payers DatePayer CategoryPayerPolicy ID2025Medicare [id number] Health Insurance [id number] Health [id number]-pay2023Medicaid [id number] 2023Medicaid [id number] (Managed Care) [id number] [facility] [id number] 2022-Present [address] [place] [address] [id number] 2.16.840.1.918477.3.57[id number] 2.16.840.1.016915.3.57[id number] 2.16.840.1.937107.3.57[id number] 2.16.840.1.376067.3.57[id number] 2.16.840.1.494791.3.57[id number] 2.16.840.1.998921.3.579.2.99530-18-7167Yiilwem05069027 2.16.840.1.955920.3.579.2.61048-36-4089Nmtfcsx42413611 2.16.840.1.349426.3.579.2.91691-72-7572Hlaiujd68466643 2.16.840.1.744362.3.579.2.49844-99-8963Rasicoc99369394 2.16.840.1.148712.3.579.2.96807-05-5168Qmokoxt88149093 2.16.840.1.805922.3.579.2.76066-22-6305Ubxpbmj88764443 2.16.840.1.538639.3.579.2.19373-11-1114Dpaotou01652099 2.16.840.1.830763.3.579.2.76382-16-2978Hbzrxgh36555645 2.16.840.1.869578.3.579.2.81105-81-6921Rakrydc88597921 2.16.840.1.924018.3.579.2.25447-55-1941Jftcjfl06420111 2.16.840.1.537080.3.579.2.55079-92-3374Qqymwuq68694439 2.16.840.1.978143.3.579.2.77329-86-6110Qouzyxc87061029 2.16.840.1.387612.3.579.2.70827-95-9380Lduvttr16941737 2.16.840.1.771456.3.57[id number] 2.16.840.1.643486.3.57[id number] 2.16.840.1.765324.3.579.[id number] 2.16840.1.202148.3.579.[id number] 2.16.840.1.692985.3.57[id number] 2.16.840.1.182922.3.57[id number] 2.16.840.1.762945.3.579.[id number] 2.16.840.1.265643.3.57[id number] 2..840.1.911978.3.57[id number] 2..840.1.059315.3.57[id number] 2.16.840.1.784[id number] 2.16.840.1.937764.3.579.2.531 [id number] 2.16.840.1.50484[id number] 2.16.840.1.241295.3.579.2.969Fkebvdq17907582 2.16.840.1.985727.3.579.2.531 Social History DateTypeDetailFacilityStart: 07-04-2021 End: 04-26-0274Zrnotpr smoking statusNever smoked tobacco (finding)[facility] Start: 76-33-0133Wagoaug smoking statusFairfield Medical Center Start: 67-99-2303Ghv Assigned At BirthFeTriHealth Good Samar[facility] Start: 00-45-7993Dxxvgas use and exposureSmokeless tobacco non-userNOMS HealthcareStart: 04-18-6490Gwdnzay of Social functionNOMS HealthcareStart: 33-30-4085Qas Assigned At BirthNot on fileNOMS HealthcareStart: 92-54-7046Eqp Assigned At BirthProtestant Deaconess HospitalTobacco smoking status NHISUnknown if ever smokedPromedica Toledo Hospital Work Phone: Start: 86-28-5364ZnjDfsdvqm sex unknown (finding) [facility] Centerexual OrientationSumma Health Start: 07-11-2018 End: 30-12-8524NpkBwoopq (finding)[facility] Functional Status HlmaOqvqkeivusGxwympXmdnhrke12-78-4359Uqlfccuexq StatusNoSumma Health08-31-2023Functional StatusSumma Health08-30-2023 Functional StatusN/AFSub[facility]08-28-2023Functional StatusN/A [facility]07-14-2023Functional StatusN/[facility]07-13-2023Functional StatusSumma Health Clinical Notes 07-11-2021 to 09-30-2024 Note Date & GyyhGdilHthlazsr34-82-9115 Nuclear medicine Diagnostic study note [facility] [place] [address] Nuclear Medicine Report Signed Patient: Marlen Staley MR#: [id number] : 1950 Acct:[id number] Age/Sex: 74 / F ADM Date: 5 Loc: Room: Type: [facility] Attending Dr: Senthil Caldera - [facility] DO Copies to: Fady Muir Jr, DO [...] Jr., D.OAspen 09/30/2024 11:48 AM Dictation Location: [place] [address] Transcribed By: [facility] 09/30/24 1148 Dictated By: Fady Muir Jr, DO 09/30/24 1057 Signed By: 09/30/24 1148 [facility]05-21-2025 NoteOncology Progress Note Chief Complaint Follow [...] cm in length. ER greater than 95, HI greater than 95. Her2 1+ (this is [...] 104. September 12, 2023 Recent PET/CT from [facility] that was compared to a PET/CT from May notes slightly enlarging right breast nodule 2.3 cm from previous 1.8 cm. No other evidence of metastatic disease or progression of disease. continues on 200mg kisquali and exemestane. no complaints. 01/09/24 hb 10.2 stable. creat 1.2 stable. labs scanned from [facility]. Recent PET/CT from [facility] notes enlargement of her primary right breast mass from 2.3cm to 3.8cm. we think she is on kisquali 400mg daily (600mg is standard dose). she is supposed to be on exemestane daily as well. review of med list from [facility] confirms. will raise kisquali to full dose and stop exemestane and start faslodex. 05/13/24 she is doing well, enjoys the fdc for the most part. continues kisquali. no changes in her breast. [facility]. continues faslodex kisquali. her pet/ct at [facility] with improved tumor and axillary adenopathy. 09/09/24 recent labs from may 26 noted hb 9.8, mcv 105, albumin 3.3, creat 1.6, b12 good. continues monthly faslodex (with kisquali). pet/ct from 08/07/24 at [facility] notes no significant change in pet/ct finding compared to04/29/24. Residual abnormal activity in right breast with subthreshold activity involving right axillary lymph nodes. she is inquiring about variability in her injection site discomfort. faslodex. Physical Examination PS 3 - lives in [facility], in wheelchair today, cant stand or [...] cancer, Stage IV. ER greatly positive and HI greatly positive. Her2 negative. two bony mets on pet/ct in june 2021. These are not lesions that are very easy to biopsy. She is very hesitant for aggressive therapy or chemotherapy at tx (more content not included)...[facility]04-28-2025 Nuclear medicine Diagnostic study [facility] [place] [address] [place] [address] Nuclear Medicine Report Signed Patient: Marlen Staley MR#: [id number] : 1950 Acct:[id number] Age/Sex: 74 / F ADM Date: 5 Loc: PE Room: Type: [facility] CLI Attending Dr: Senthil Caldera - [facility] DO Copies to: Fady Muir Jr, DO [...] Jr., DAspenOAspen 08/17/2024 3:15 PM Dictation Location: [place] [address] Transcribed By: [facility] 08/17/24 1515 Dictated By: Fady Muir Jr, DO 08/17/24 1455 Signed By: 08/17/24 1515 [facility]01-25-2025 NoteOncology Progress Note Chief Complaint Breast [...] cm in length. ER greater than 95, HI greater than 95. Her2 1+ (this is [...] 104. September 12, 2023 Recent PET/CT from [facility] that was compared to a PET/CT from May notes slightly enlarging right breast nodule 2.3 cm from previous 1.8 cm. No other evidence of metastatic disease or progression of disease. continues on 200mg kisquali and exemestane. no complaints. 01/09/24 hb 10.2 stable. creat 1.2 stable. labs scanned from [facility]. Recent PET/CT from [facility] notes enlargement of her primary right breast mass from 2.3cm to 3.8cm. we think she is on kisquali 400mg daily (600mg is standard dose). she is supposed to be on exemestane daily as well. review of med list from [facility] confirms. will raise kisquali to full dose and stop exemestane and start faslodex. 05/13/24 she is doing well, enjoys the fdc for the most part. continues kisquali. no changes in her breast. [facility]. continues faslodex kisquali. her pet/ct at [facility] with improved tumor and axillary adenopathy. Physical Examination PS 3 - lives in [facility], in wheelchair today, cant stand or [...] cancer, Stage IV. ER greatly positive and HI greatly positive. Her2 negative. two bony mets [...] daily 3wks o (more content not included)...[facility]01-08-2025 Nuclear medicine Diagnostic study [facility] [place] [address] [place] [address] Nuclear Medicine Report Signed Patient: Marlen Staley MR#: [id number] : 1950 Acct:[id number] Age/Sex: 73 / F ADM Date: 5 Loc: Room: Type: [facility] CLI Attending Dr: Senthil Caldera - [facility] DO Copies to: MD Senthil Guo DO~ [...] Carlos Guaman M.D.04/29/2024 4:17 PM Dictation Location: [place] [address] Transcribed By: LENNOX 04/29/24 1617 Dictated By: Carlos Guaman MD 04/29/24 1607 Signed By: 04/29/24 1614 [facility] Work Phone: 1(429) 381-383609-19-2024 NoteOncology Progress Note Chief Complaint Breast Ca; [...] cm in length. ER greater than 95, HI greater than 95. Her2 1+ (this is [...] 104. September 12, 2023 Recent PET/CT from [facility] that was compared to a PET/CT from May notes slightly enlarging right breast nodule 2.3 cm from previous 1.8 cm. No other evidence of metastatic disease or progression of disease. continues on 200mg kisquali and exemestane. no complaints. 01/09/24 hb 10.2 stable. creat 1.2 stable. labs scanned from [facility]. Recent PET/CT from [facility] notes enlargement of her primary right breast mass from 2.3cm to 3.8cm. we think she is on kisquali 400mg daily (600mg is standard dose). she is supposed to be on exemestane daily as well. review of med list from [facility] confirms. will raise kisquali to full dose and stop exemestane and start faslodex. Physical Examination PS 3 - lives in [facility], in wheelchair today, cant stand or [...] cancer, Stage IV. ER greatly positive and HI greatly positive. Her2 negative. two bony mets [...] labs weekly sh (more content not included)...[facility]02-21-2024 Hospital Discharge instructions Follow Up Care 06/12/2023 11:56:20 With:Senthil Caldear DO ONC Address: [place] [address] [place] [phone] Fax Business (1) When: Unknown With:Senthil Caldera DO ONC Address: [address] [phone] Fax Business (1) When: Unknown Comments:f/u in [address] priorcbc, cmp, [id number] prior to f/u and in 2 months. [facility]02-21-2024 Hospital Discharge instructions Patient Education 06/12/2023 11:39:22 [...] high-protein foods. Preparing meals Add whole milk, puqx-yxv-cnts, or heavy cream to cereal, pudding, soup, [...] potatoes. Grains Pasta. Quick breads. Muffins. Pancakes. Awkwc-lr-der cereal. Meats and other proteins Peanut butter. [...] provider. Document Revised: 03/12/2021 Document Reviewed: 03/12/2021 [employer] Patient Education 2022 Food and Beverage. 06/12/2023 11:25:57 Breast Cancer, Female Breast Cancer, [...] breastcancer. Follow these instructions at home: Take moid-and-cgkowbw and prescription medicines only as told by [...] is important. Where to find more information [employer] [employer]: www.cancer.org National Cancer [place]: www.cancer.gov Contact a health care provider if: [...] provider. Document Revised: 02/26/2022 Document Reviewed: 02/26/2022 [employer] Patient Education 2022 [employer] 06/12/2023 11:25:02 Fall Prevention in the Home, Adult, Cyjo-ew-Dfpb Fall Prevention in the Home, Adult Falls [...] Keep items that you use often in cdnn-nh-hrlzr places. Lower the shelves around your home [...] of the way. Do not use floor northern irish or wax that makes floors slippery. What [...] Disease Control and Prevention, STE[place]: www.cdc.gov National [place] on Aging: www.derrick.nih.gov Contact a doctor if: [...] provider. Document Revised: 01/08/2022 Document Reviewed: 11/09/2020 [employer] Patient Education 2022 Food and Beverage. Follow Up Care 05/01/2023 15:02:18 With:Senthil Caldera DO, ONC Address: [address] [phone] Fax Business (1) When: Unknown Comments:cbc, cmp, iron studies, b12, foalte, epo [id number] monthly. f/u in 3 months. change arimidex to exemestane 25mg daily. pet/ct prior to f/u.make sure images from pet from may and august are both in our system for review at f/u in august. [facility]10-11-2023 Hospital Discharge instructions Follow Up Care 01/30/2023 15:16:04 With:Senthil Caldera Address: [address] [place] [phone] Fax Business (1) When: Unknown Comments:f/u in 6 wks. pet/ct in [facility] soon. f/u after. cbc, cmp, iron studies, b12, foalte, epo, cg2929 prior to f/u. [facility]09-03-2023 Evaluation + Plan noteExtracted from: Title:Discharge NoteAuthor:Zaheer Sloan DODate:12/23/22 Discharge To, Anticipated II - [facility] Unit [...] When Contact Information Azar HANKS, Rickey Lynn, [address] [address]- Additional Instructions: Antibiotic Medicine, Adult, Gqps-pk-Xzvw Extracted from:Title:APSO NoteAuthor:Zaheer Sloan DODate:12/22/22 1. UTI [...] Ordered: Initial Hospital Care/Day Moderate 55 Minutes [id number] Sbsq Hospital Care/Day Straight Fwd 25 Minutes [address]143 2. 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 Age-related cognitive decline (R41.81: Age-related cognitive [...] 10/25/22 * Comprehensive Metabolic Panel 11/22/22 [facility]09-03-2023 Hospital Discharge instructions Patient Education 12/23/2022 09:48:15 Antibiotic Medicine, Adult, Bjez-rh-Qadc Antibiotic Medicine, Adult Antibiotic medicines treat infections [...] medicine. Follow these instructions at home: Take pwgh-ffy-fwxdzan and prescription medicines as told by your [...] provider. Document Revised: 01/26/2020 Document Reviewed: 01/26/2020 [employer] Patient Education 2022 Food and Beverage. Follow Up Care 12/20/2022 15:04:36 With:Azar HANKS, NIKOLE Benedict Address: [address] [place] [address]- When: Unknown [facility]09-03-2023 NoteAdmission and Discharge Information Admit Date/Time:12/20/2022 16:52 [...] 39.2 % Lymph Auto - 42.1 % Yancey Auto - 13.6 % Eos Auto - 2.5 % Basophil Auto - 2.6 % Neutro Absolute - 1.3 E9/L Lymph Absolute - 1.4 E9/L Yancey Absolute - 0.4 E9/L Eos Absolute - [...] - 111 mg/dL POC Device SN - [id number] POC User ID - [id number] POC Username - JUAN HENNESSY CBC w/ [...] Discharge To, An (more content not included)...[facility] Comment on above:Result Comment: Electronically Signed By: Zaheer Sloan DO\Date and Time Signed: 12/23/22 09:49 [id number] NotePT evaluation completed with an AMPAC score 02/12. Pt currently requires Mod A for bed mobility andMax A x2 for STS transfers. Pt was unable to ambulate and a Max A stand pivot transfer was needed to get from bed to bedside commode. Due to pt's current cognition and functional status, would recommend SNF/ECF.[facility]09-01-2023 NoteCRM entered the room to discuss [...] over the phone. Call to dtr Helen [phone] and she is agreeable to any SNF. ANt dc TBD. Karolina says they will be able to provide pt's chemo to facility.[facility] HospitalComment on above:Result Comment: Electronically Signed By: Brooklynn Connor.johnnie\Date and Time Signed: 12/21/22 11:15 [id number] NoteBasic Information Admit Date/Time:12/20/2022 16:52 Chief Complaint Pt came in via [facility] for dysuria and weakness. Pt states she was here earlier and has only taken one of the ATBs. History of Present Illness Pwyu51-pfku-okl female with past medical history of breast [...] her are currently trying to get into [facility]. They are on a waiting list. [...] as well and was recently admitted to [facility] and signed herself out as well as [...] 15:45:00) Lymph Auto: 28.4 % (12/20/22 15:45:00) Yancey Auto: 12.5 % (12/20/22 15:45:00) Eos Auto: 1.3 % (12/20/22 15:45:00) Basophil Auto: 3.5 % High (12/20/22 15:45:00) Neutro Absolute: 2.1 E9/L (12/20/22 15:45:00) Lymph Absolute: 1.1 E9/L (12/20/22 15:45:00) Yancey Absolute: 0.5 E9/L (12/20/22 15:45:00) Eos Absolute: [...] pg/mL (12/20/22 18:40:00) (more content not included)...[facility] on above:Result Comment: Electronically Signed By: Zaheer Sloan DO.br\Date and Time Signed: 12/20/22 19:18 [id number] Evaluation + Plan noteExtracted from:Title:ED NoteAuthor:Ran HANKS, TimDate: 12/20/22 1. Generalized weakness (R53 .1: Weakness) 2. Frequent falls (R29.6: Repeated falls) 3. Anemia (D64.9: Anemia, unspecified) 4. Dehydration (E86.0: Dehydration) 5. Urinary tract infection (N39.0: Urinary tract infection, site not specified) Orders: cephalexin, 500 mg = 1 cap(s), Oral, QID, X 7 day(s), # 28 cap(s), Refills(s) 0, Pharmacy: [facility], 167.6, cm, 12/19/22 20:43:00 EDT, Height/Length [...] 10/25/22 * Comprehensive Metabolic Panel 11/22/22 [facility]08-31-2023 Hospital Discharge instructions Patient Education 12/20/2022 00:37:19 Urinary Tract Infection, Adult, Nopk-vd-Grux Urinary Tract Infection, Adult A urinary tract [...] Follow these instructions at home: Medicines Take zrlr-wbw-vkdqndm and prescription medicines only as told by [...] provider. Document Revised: 11/18/2020 Document Reviewed: 11/18/2020 [employer] Patient Education 2022 Food and Beverage. 12/20/2022 00:37:19 Anemia Anemia Anemia is a [...] spleen. Follow these instructions at home: Take zemb-yei-ixwxysx and prescription medicines only as told by [...] provider. Document Revised: 02/20/2022 Document Reviewed: 03/15/2020 [employer] Patient Education 2022 Food and Beverage. 12/20/2022 00:37:19 Dehydration, Adult, Xkpk-sc-Cpuk Dehydration, Adult Dehydration is condition in which [...] of fat or sugar. General instructions Take dhcv-ani-jggkjcf and prescription medicines only as told by [...] start slowly drinking other clear fluids. Take feop-yke-gngglnf and prescription medicines only as told by your doctor. Get help right away if you have any symptoms of very bad dehydration. This information is not intended to replace advice given to you by your health care provider. Make sure you discuss any questions you have with your health care provider. Document Revised: 11/19/2019 Document Reviewed: 11/19/2019 [employer] Patient Education 2022 Food and Beverage. Follow Up Care 12/19/2022 20:39:35 With:Rickey Askew Address: [employer] [place] [phone] Business (1) When:12/21/2022 [facility]08-28-2023 Hospital Discharge instructions Patient Education 12/17/2022 13:33:49 [...] Follow these instructions at home: Medicines Take eluu-fkp-zwchfml and prescription medicines only as told by [...] as fried or sweet foods. ?Take an enpr-evi-jjmntcf or prescription medicine for constipation. If you [...] provider. Document Revised: 02/05/2022 Document Reviewed: 02/05/2022 [employer] Patient Education 2022 Food and Beverage. Follow Up Care 12/17/2022 10:20:15 With:JOSÉ ANTONIO VARGAS Address: [address] [place] [phone] Business (1) When:12/20/2022 12:53:13 With:Gavino Lugo Address: [address] [place] [phone]- Business (1) When:12/20/2022 12:52:03 With:Rickey Askew Address: [address] [place] [address] [place] [address]- Business (1) When:12/20/2022 12:51:59 [facility]08-28-2023 Evaluation + Plan noteExtracted from: Title:ED NoteAuthor:Kael SIMPSON, JansenDate:12/17/22 Fall (W19.XXXA: Unspecified fall, initial encounter) Lumbar compression fracture (S32.000A: Wedge compression fracture of unspecified lumbar vertebra, initial encounter for closed fracture) Ordered: oxycodone, 5 mg = 1 tab(s), Oral, q6hr, X 3 day(s), # 15 tab(s), Refills(s) 0, Pharmacy: [facility], 168, cm, 12/17/22 10:29:00 EDT, Height/Length [...] 10/25/22 * Comprehensive Metabolic Panel 11/22/22 [facility]07-18-2023 NoteHOSPITAL REGULATIONS: All Positive and Important Negative [...] CAME THROUGH Gavino Lugo D.O. Dictated: 11/02/2022 [id number] Transcribed: 11/02/2022 cc:Rickey Askew M.D.[facility] HospitalComment on above:Result Comment: Electronically Signed By: Gavino Lugo DO T\.br\Date and Time Signed: 11/06/22 07:17 [id number] NoteHOSPITAL REGULATIONS: All Positive and Important Negative [...] going to rehabilitation. Her friend from the [facility], which is her old neighbor, was in [...] Nursing staff as well as friend from [place] is present. She has bruising to the [...] of infection. Social Service for rehabilitation placement [facility]. Orthopedics to sign off with follow up in the office in 4 weeks for a repeat x-ray examination of the pelvis. She voiced a verbal understanding and her friend from [place] is present. Ivett Palacio Dictated: 11/05/2022 [id number] Transcribed: 11/05/2022 cc:Rickey Askew M.D.[facility] CenterComment on above:Result Comment: Electronically Signed By: Gavino Lugo DO\.br\Date and Time Signed: 11/06/22 07:17 [id number] Hospital Discharge instructions Patient Education 11/04/2022 12:28:31 [...] Consider working with a physical therapist or water trainer who can develop an exercise plan to help you gain muscle strength. General instructions Take ygln-tmq-leppxll and prescription medicines only as told by [...] provider. Document Revised: 03/11/2022 Document Reviewed: 03/11/2022 [employer] Patient Education 2022 Food and Beverage. Follow Up Care 11/01/2022 19:54:24 With:Hollis MERRILL Address: [address] [place] [phone] Business (1) When: Unknown Comments:Urinary retnetion w/dooley With:Gavino Lugo Address: [address] [place] [address]- Business (1) When: Unknown Comments:Call for followup appointment in 4 weeks for repeat pelvis xray With:Rickey Askew Address: [address] [place] [address] Business (1) When: Unknown [facility]07-16-2023 Evaluation + Plan noteExtracted from: Title:Discharge NoteAuthor:Trevor HANKS, madDate:11/04/22 Stable Discharge To, Anticipated II - [facility] Unit Discharged to - senior living unit Discharge Diet(s): Regular (11/02/22 15:25:00) Prescriptions anastrozole 1 mg Tab, 1 mg= 1 tab(s), Oral, Daily, 11 refills Arimidex 1 mg Tab, 1 mg= 1 tab(s), Oral, Daily, 3 refills ergocalciferol 50,000 intl units Cap, 52106 International_Unit= 1 cap(s), Oral, q7day Kisqali (200 [...] bedtime) With When Contact Information Gavino Lugo [address] [place], [place] [phone] A4 Data (1) Additional Instructions: Call for followup appointment in 4 weeks for repeat pelvis xray Rickey Askew In [address] [place] [phone] A4 Data (1) Additional Instructions: Addendum by Trevor HANKS, [facility] on November 04, 2022 12:36:52 EDT Of [...] deep vein thrombosis (DVT) prophylaxis (Z79.899: Other manager terminal (current) drug therapy) SCD, enoxaparin Orders: [...] 10/25/22 * Comprehensive Metabolic Panel 11/22/22 [facility]07-16-2023 NoteAdmission and Discharge Information Admitting Physician - [...] therapy and they deemed her appropriate for halfway facility. She was accepted to halfway facility and will be discharged there. On [...] 65.9 % Lymph Auto - 24.6 % Yancey Auto - 5.0 % Eos Auto - 3.3 % Basophil Auto - 1.2 % Neutro Absolute - 4.4 E9/L Lymph Absolute - 1.6 E9/L Yancey Absolute - 0.3 E9/L Eos Absolute - [...] 1 mg Tab (more content not included)...[facility] Comment on above:Result Comment: Electronically Signed By: Trevor HANKS, Wyatt\.br\Date and Time Signed: 11/04/22 12:37 [id number] NotePT Evaluation done this date. Pt. with 12/13 on AM-PAC this date. She is very resistant to movement due to pain. She is unable to stand even with attempts of max A. Will benefit from SNF.[facility]07-14-2023 NoteChief Complaint pt to ED via [facility] with c/o chest bruise from fall earlier today. c/o increasing weakness. denies thinners or hitting head with earlier fall. denies PMH. hx of DM. pt A&Ox4 upon ED arrival, applied to manager monitoring. History of Present Illness Patient is a [...] % (11/01/22::00) Lymph Auto: 24.6 % (11/01/22::00) Yancey Auto: 5 % (11/01/22::00) Eos Auto: 3.3 % (11/01/22::00) Basophil Auto: 1.2 % (11/01/22::00) Neutro Absolute: 4.4 E9/L (11/01/22:01:00) Lymph Absolute: 1.6 E9/L (11/01/22 22::00) Yancey Absolute: 0.3 E9/L (11/01/22::00) Eos Absolute: 0.2 [...] once reconciled. Hydralazine (more content not included)...[facility] HospitalComment on above:Result Comment: Electronically Signed By: Mariia LOPEZ DO\Date and Time Signed: 11/02/22 01:35 [id number] Hospital Discharge instructions Follow Up Care 09/27/2022 14:06:46 With:Senthil Caldera Address: [address] [phone] Fax Business (1) When: Unknown Comments:f/u in 3 months. pet/ct prior to f/u. cont arimidex and kisquali. cbc, cmp and [id number] monthly. [facility]02-15-2023 Hospital Discharge instructions Follow Up Care 06/06/2022 13:40:28 With:Senthil Caldera Address: [address] [phone] Fax Business (1) When: Unknown Comments:cbc, cmp, [id number] in 4 weeks and prior to f/u in 8 weeks. f/u with [facility]. iron studies, b12, folate with next labs. [facility]12-07-2022 Hospital Discharge instructions Follow Up Care 03/28/2022 14:49:31 With:Senthil Cladera Address: [address] [phone] Fax Business (1) When: Unknown Comments:f/u in 2 months. pet/ct prior to f/ucbc, cmp, [id number], every 6 weeks. [facility]09-29-2022 Hospital Discharge instructions Follow Up Care 01/18/2022 14:52:57 With:Senthil Caldera Address: [address] [phone] Fax Business (1) When: Unknown Comments:raise kisquali to 400mg for 3wks on and 1 week off. f/u with me or rajani in 2 months. cbc, cmp, [id number] prior to f/ucbc, cmp monthly onthis medicaztion cont arimidex. [facility]09-01-2022 Hospital Discharge instructions Follow Up Care 12/21/2021 14:19:38 With:Senthil Caldera Address: [address] [phone] Fax Business (1) When: Unknown Comments:continue Kisqali 200mg 3wks on, 1wk offcbc, cmp in 4wks and 8wksPET scan in Novfollow-up in 8wks with Dr. Hernandez after PET scan [facility]08-11-2022 Hospital Discharge instructions Follow Up Care 11/30/2021 13:55:25 With:Senthil Caldera Address: [address] [phone] Fax Business (1) When: Unknown Comments:re-start kisqali at 200mg daily x 3 weeks, then 1 week offcmp weekly x 4wksfollow-up with Dr. Hernandez in 4wkscbc, cmp at follow-up [facility]07-14-2022 Hospital Discharge instructions Follow Up Care 11/02/2021 12:27:30 With:Senthil Caldera Address: [address] [phone] Fax Business (1) When: Unknown Comments:cont arimidex. Hold kisquali for 3 wks, recheck cbc, cmp, prior to f/u. hold lasix. Send this note to Dr. Kofi sumner. [facility]06-16-2022 Hospital Discharge instructions Follow Up Care 10/05/2021 14:21:47 With:Senthil Caldera Address: [address] [phone] Fax Business (1) When: Unknown Comments:continue kisqalifollow-up in 1mocbc, cmp at follow-up [facility]05-19-2022 Hospital Discharge instructions Follow Up Care 09/07/2021 13:41:37 With:Senthil Caldera Address: [address] [phone] Fax Business (1) When: Unknown Comments:continue Kisqali follow-up in 1 mocbc, cmp, om1991 at follow-up [facility]05-15-2022 Evaluation + Plan noteExtracted from: Title:ED NoteAuthor:Martin [...] Location:.ONCOLOGY Appointment Type:ONC Office Visit 15 (FT) [facility]05-15-2022 Hospital Discharge instructions Patient Education 09/03/2021 00:46:59 [...] instructions at home: Medicines Take and apply aonj-imu-tpfppta and prescription medicines only as told by [...] what causes your hives. Take and apply axok-tta-hdjhtnm and prescription medicines only as told by your health care provider. Keep all follow-up visits as told by your health care provider. This is important. This information is not intended to replace advice given to you by your health care provider. Make sure you discuss any questions you have with your health care provider. Document Released: 04/08/2006 Document Revised: 10/22/2018 Document Reviewed: 10/22/2018 [employer] Patient Education 2020 Food and Beverage. Follow Up Care 09/03/2021 00:14:38 With:Rickey Askew Address: [facility] [address]- Business (1) When:Within 3 Day(s) [facility]04-21-2022 Hospital Discharge instructions Follow Up Care 08/10/2021 13:38:09 With:Nohemi Garcia Address: [facility] [address] [place] [phone] Business (1) When: Unknown Comments:f/u 1 monthcont kisquali.cbc, cmp, [id number] at f/u. With:Senthil Caldera Address: [address] [place] [phone] Fax Business (1) When: Unknown [facility]04-05-2022 Hospital Discharge instructions Follow Up Care 07/25/2021 15:46:11 With:Senthil Caldera Address: [address] [phone] Fax Business (1) When: Unknown Comments:f/u in 2 wks, cbc, cmp, [id number] at f/u. [facility]03-22-2022 Hospital Discharge instructions Follow Up Care 07/11/2021 14:05:16 With:Senthil Caldera Address: [place] [phone] Fax Business (1) When: Unknown Comments:echo and port sooni will call Dr. Tabor. f/u with me in 2 wks plan AC. Cbc, cmp, ceapet/ct prior to f/u. [facility] Future Appointments Appointment Date:07/18/2021 12:00:00 PM Scheduled Provider:Senthil Caldera DO Location:.ONCOLOGY Appointment Type:ONC Office Visit New 45 (FT) [facility] General Surgery Outing Evaluation + Plan note Future Appointments Appointment Date:08/08/2021 10:00:00 AM Scheduled Provider: [facility] Appoint[facility] Type:US Breast (FT) Appointment Date:08/09/2021 10:30:00 AM Scheduled Provider: Location:[facility] Appointment Type:Surgical PAT FT Appointment Date:08/10/2021 12:30:00 PM Scheduled Provider:Senthil Caldera DO Location:.ONCOLOGY Appointment Type:ONC Office Visit 15 (FT) Appointment Date:08/17/2021 08:00:00 AM Scheduled Provider: Location:[facility] Appointment Type:Surgery FT Appointment Date:08/22/2021 10:20:00 AM Scheduled Provider:Gavino TABOR MD Location:[facility] Appointment Type: Post Op 15 Future Scheduled Tests Laboratory* CA 27 29 08/09/21 * CBC w/ Auto Diff 08/09/21 * CBC w/ Auto Diff 07/26/21 * CEA 07/26/21 * Comprehensive Metabolic Panel 08/09/21 * Comprehensive Metabolic Panel 07/26/21 Radiology* US Perc Biopsy Lymph Node 08/08/21 [facility] Future Appointments Appointment Date:08/10/2021 12:30:00 PM Scheduled Provider:Senthil Caldera DO Location:.ONCOLOGY Appointment Type:ONC Office Visit 15 (FT) Diagnostic Tests Pending * CA 27 29 08/07/21 Future Scheduled Tests Laboratory* CBC w/ Auto Diff 07/26/21 * CEA 07/26/21 * Comprehensive Metabolic Panel 07/26/21 [facility] Future Appointments Appointment Date:08/10/2021 12:30:00 PM Scheduled Provider:Senthil Caldera DO Location:.ONCOLOGY Appointment Type:ONC Office Visit 15 (FT) Future Scheduled Tests Laboratory* CBC w/ Auto Diff 07/26/21 * CEA 07/26/21 * Comprehensive Metabolic Panel 07/26/21 [facility] Future Appointments Appointment Date:09/07/2021 12:30:00 PM Scheduled Provider:Senthil Caldera DO Location:.ONCOLOGY Appointment Type:ONC Office Visit 15 (FT) Future Scheduled Tests Laboratory* CBC w/ Auto Diff 08/24/21 * CEA 08/24/21 * Comprehensive Metabolic Panel 08/24/21 [facility] Future Appointments Appointment Date:08/21/2021 02:00:00 PM Scheduled Provider: Location:.ONCOLOGY Appointment Type:ONC Patient Education - 1hr (FT) Appointment Date:09/07/2021 12:30:00 PM Scheduled Provider:Senthil Caldera DO Location:.ONCOLOGY Appointment Type:ONC Office Visit 15 (FT) Future Scheduled Tests Laboratory* CBC w/ Auto Diff 09/07/21 * CEA 09/07/21 * Comprehensive Metabolic Panel 09/07/21 [facility] Future Appointments Appointment Date:09/07/2021 12:30:00 PM Scheduled Provider:Senthil Caldera DO Location:FT.ONCOLOGY Appointment Type:ONC Office Visit 15 (FT) [facility] Future Appointments Appointment Date:10/05/2021 01:30:00 PM Scheduled Provider:Senthil Caldera DO Location:FT.ONCOLOGY Appointment Type:ONC Office Visit 15 (FT) Future Scheduled Tests Laboratory* CA 27 29 10/08/21 * CBC w/ Auto Diff 10/08/21 * Comprehensive Metabolic Panel 10/08/21 [facility] Future Appointments Appointment Date:10/05/2021 01:30:00 PM Scheduled Provider:Senthil Caldera DO Location:FT.ONCOLOGY Appointment Type:ONC Office Visit 15 (FT) Diagnostic Tests Pending * CA 27 29 10/02/21 [facility] Future Appointments Appointment Date:11/02/2021 01:45:00 PM Scheduled Provider:Senthil Caldera DO Location:FT.ONCOLOGY Appointment Type:ONC Office Visit 15 (FT) Future Scheduled Tests Laboratory* CA 27 29 11/02/21 * CBC w/ Auto Diff 11/02/21 * Comprehensive Metabolic Panel 11/02/21 [facility] Future Appointments Appointment Date:11/02/2021 11:15:00 AM Scheduled Provider:Nohemi Garland Location:FT.ONCOLOGY Appointment Type:ONC Office Visit 15 (FT) Diagnostic Tests Pending * CA 27 29 11/01/21 [facility] Future Appointments Appointment Date:11/30/2021 01:15:00 PM Scheduled Provider:Senthil Caldera DO Location:FT.ONCOLOGY Appointment Type:ONC Office Visit 15 (FT) Future Scheduled Tests Laboratory* CBC w/ Auto Diff 12/03/21 * Comprehensive Metabolic Panel 12/03/21 [facility] Future Appointments Appointment Date:11/30/2021 01:15:00 PM Scheduled Provider:Senthil Caldera DO Location:FT.ONCOLOGY Appointment Type:ONC Office Visit 15 (FT) [facility] Future Appointments Appointment Date:12/21/2021 01:15:00 PM Scheduled Provider:Senthil Caldera DO Location:.ONCOLOGY Appointment Type:ONC Office Visit 15 (FT) Future Scheduled Tests Laboratory* CBC w/ Auto Diff 12/21/21 * Comprehensive Metabolic Panel 12/21/21 [facility] Future Appointments Appointment Date:01/18/2022 [...] 01/18/22 * Comprehensive Metabolic Panel 01/25/22 [facility] Future Appointments Appointment Date:01/18/2022 [...] 01/18/22 * Comprehensive Metabolic Panel 01/25/22 [facility] Future Appointments Appointment Date:03/28/2022 [...] 02/06/22 * Comprehensive Metabolic Panel 02/13/22 [facility] Future Appointments Appointment Date:03/28/2022 02:15:00 PM Scheduled Provider:Senthil Caldera DO Location:FT.ONCOLOGY Appointment Type:ONC Office Visit 15 (FT) Future Scheduled Tests Laboratory* CBC w/ Auto Diff 03/08/22 * CBC w/ Auto Diff 04/05/22 * Comprehensive Metabolic Panel 03/08/22 * Comprehensive Metabolic Panel 04/05/22 [facility] Future Appointments Appointment Date:06/06/2022 01:15:00 PM Scheduled Provider:Senthil Caldera DO Location:FT.ONCOLOGY Appointment Type:ONC Office Visit 15 (FT) [facility] Future Appointments Appointment Date:08/01/2022 02:00:00 PM Scheduled Provider:Senthil Caldera DO Location:FT.ONCOLOGY Appointment Type:ONC Office Visit 15 (FT) Future Scheduled Tests Laboratory* CBC w/ Auto Diff 06/06/22 * Comprehensive Metabolic Panel 06/06/22 [facility] Future Appointments Appointment Date:08/01/2022 02:00:00 PM Scheduled Provider:Senthil Caldera DO Location:FT.ONCOLOGY Appointment Type:ONC Office Visit 15 (FT) Diagnostic Tests Pending * CA 27 29 07/09/22 Future Scheduled Tests Laboratory* CA 27 29 07/31/22 * CBC w/ Auto Diff 07/31/22 * Comprehensive Metabolic Panel 07/31/22 [facility] Future Appointments Appointment Date:08/01/2022 02:00:00 PM Scheduled Provider:Senthil Caldera DO Location:FT.ONCOLOGY Appointment Type:ONC Office Visit 15 (FT) Diagnostic Tests Pending * CA 27 29 07/30/22 [facility] Future Appointments Appointment Date:09/27/2022 [...] 08/29/22 * Vitamin B12 Level 08/29/22 [facility] Future Appointments Appointment Date:09/27/2022 01:45:00 PM Scheduled Provider:Nohemi Garland Location:FT.ONCOLOGY Appointment Type:ONC Office Visit 30 (FT) Diagnostic Tests Pending * CA 27 29 09/25/22 [facility] Future Appointments Appointment Date:11/22/2022 02:15:00 PM Scheduled Provider:Senthil Caldera DO Location:FT.ONCOLOGY Appointment Type:ONC Office Visit 15 (FT) Future Scheduled Tests Laboratory* CA 27 29 10/25/22 * CA 27 29 11/22/22 * CBC w/ Auto Diff 10/25/22 * CBC w/ Auto Diff 11/22/22 * Comprehensive Metabolic Panel 10/25/22 * Comprehensive Metabolic Panel 11/22/22 [facility] Future Appointments Appointment Date:12/26/2022 02:45:00 PM Scheduled Provider:Senthil Caldera DO Location:FT.ONCOLOGY Appointment Type:ONC Office Visit 15 (FT) Future Scheduled Tests Laboratory* CA 27 29 10/25/22 * CA 27 29 11/22/22 * CBC w/ Auto Diff 10/25/22 * CBC w/ Auto Diff 11/22/22 * Comprehensive Metabolic Panel 10/25/22 * Comprehensive Metabolic Panel 11/22/22 [facility] Evaluation + Plan note [...] 04/01/23 * Comprehensive Metabolic Panel 05/02/23 [facility] Future Appointments Appointment Date:06/12/2023 [...] 04/01/23 * Comprehensive Metabolic Panel 05/02/23 [facility] Future Appointments Appointment Date:09/12/2023 [...] Transferrin 09/12/23 * Vitamin B12 Level 09/12/23 [facility] Future Appointments Appointment Date:01/09/2024 [...] Panel 12/26/23 * CA 27 29 12/26/23 [facility] Future Appointments Appointment Date:05/13/2024 02:40:00 PM Scheduled Provider:Senthil Caldera DO Location:FT.ONCOLOGY Appointment Type:ONC Office Visit 20 (FT) Diagnostic Tests Pending * CBC w/ Auto Diff 02/08/24 * Comprehensive Metabolic Panel 02/08/24 * Ferritin 05/10/24 * Iron Level 05/10/24 * Iron Percent Saturation 05/10/24 * Transferrin 05/10/24 * Vitamin B12 Level 05/10/24 * Folate Level 05/10/24 * Erythropoietin Level 05/10/24 [facility] Evaluation + Plan note Future Appointments Appointment Date:02/25/2024 02:30:00 PM Scheduled Provider: Location:.ONCOLOGY Appointment Type:ONC Injection (FT) Appointment Date:03/10/2024 02:00:00 PM Scheduled Provider: Location:.ONCOLOGY Appointment Type:ONC Injection (FT) Appointment Date:05/13/2024 02:40:00 PM Scheduled Provider:Senthil Caldera DO Location:.ONCOLOGY Appointment Type:ONC Office Visit 20 (FT) [facility] Evaluation + Plan note Future Appointments Appointment Date:03/10/2024 02:00:00 PM Scheduled Provider: Location:.ONCOLOGY Appointment Type:ONC Injection (FT) Appointment Date:05/13/2024 02:40:00 PM Scheduled Provider:Senthil Caldera DO Location:.ONCOLOGY Appointment Type:ONC Office Visit 20 (FT) [facility] Evaluation + Plan note Future Appointments Appointment Date:04/07/2024 02:00:00 PM Scheduled Provider: Location:.ONCOLOGY Appointment Type:ONC Injection (FT) Appointment Date:05/13/2024 02:40:00 PM Scheduled Provider:Senthil Caldera DO Location:.ONCOLOGY Appointment Type:ONC Office Visit 20 (FT) [facility] Evaluation + Plan note Future Appointments Appointment Date:05/05/2024 02:00:00 PM Scheduled Provider: Location:FT.ONCOLOGY Appointment Type:ONC Injection (FT) Appointment Date:05/13/2024 02:40:00 PM Scheduled Provider:Senthil Caldera DO Location:.ONCOLOGY Appointment Type:ONC Office Visit 20 (FT) [facility] EvHitsbookation + Plan note Future Appointments Appointment Date:05/13/2024 02:40:00 PM Scheduled Provider:Senthil Caldera DO Location:.ONCOLOGY Appointment Type:ONC Office Visit 20 (FT) Appointment Date:06/02/2024 02:45:00 PM Scheduled Provider: Location:.ONCOLOGY Appointment Type:ONC Injection (FT) Appointment Date:06/30/2024 03:00:00 PM Scheduled Provider: Location:.ONCOLOGY Appointment Type:ONC Injection (FT) Appointment Date:07/28/2024 03:00:00 PM Scheduled Provider: Location:.ONCOLOGY Appointment Type:ONC Injection (FT) [facility] Evaluation + Plan note Future [...] Iron Percent Saturation 09/09/24 * Transferrin 09/09/24 [facility] evaluation + Plan note Future Appointments Appointment Date:06/30/2024 03:00:00 PM Scheduled Provider: Location:FT.ONCOLOGY Appointment Type:ONC Injection (FT) Appointment Date:07/28/2024 03:00:00 PM Scheduled Provider: Location:.ONCOLOGY Appointment Type:ONC Injection (FT) Appointment Date:09/09/2024 02:40:00 PM Scheduled Provider:Senthil Caldera DO Location:FT.ONCOLOGY Appointment Type:ONC Office Visit 20 (FT) [facility] Memoradoaluation + Plan note Future Appointments Appointment Date:07/28/2024 03:00:00 PM Scheduled Provider: Location:.ONCOLOGY Appointment Type:ONC Injection (FT) Appointment Date:09/09/2024 02:40:00 PM Scheduled Provider:Senthil Caldera DO Location:FT.ONCOLOGY Appointment Type:ONC Office Visit 20 (FT) [facility] Memoradoaluation + Plan note Future Appointments Appointment Date:08/25/2024 03:00:00 PM Scheduled Provider: Location:.ONCOLOGY Appointment Type:ONC Injection (FT) Appointment Date:09/09/2024 02:40:00 PM Scheduled Provider:Senthil Caldera DO Location:FT.ONCOLOGY Appointment Type:ONC Office Visit 20 (FT) [facility] Evaluation + Plan note Future [...] Scheduled Provider: Location:.ONCOLOGY Appointment Type:ONC Injection (FT) [facility] evaluation + Plan note Future Appointments Appointment [...] CEA 02/24/25 * CA 27 29 02/24/25 [facility] evaluation + Plan note Future Appointments Appointment Date:10/20/2024 02:00:00 PM Scheduled Provider: Location:.ONCOLOGY Appointment Type:ONC Injection (FT) Appointment Date:11/17/2024 02:00:00 PM Scheduled Provider: Location:.ONCOLOGY Appointment Type:ONC Injection (FT) Appointment Date:12/15/2024 02:30:00 PM Scheduled Provider: Location:.ONCOLOGY Appointment Type:ONC Injection (FT) Appointment Date:03/10/2025 02:00:00 PM Scheduled Provider:Senthil Caldera DO Location:.ONCOLOGY Appointment Type:ONC Office Visit 20 (FT) [facility] evaluation + Plan note Future Appointments Appointment Date:11/17/2024 02:00:00 PM Scheduled Provider: Location:FT.ONCOLOGY Appointment Type:ONC Injection (FT) Appointment Date:12/15/2024 02:30:00 PM Scheduled Provider: Location:FT.ONCOLOGY Appointment Type:ONC Injection (FT) Appointment Date:03/10/2025 02:00:00 PM Scheduled Provider:Senthil Caldera DO Location:FT.ONCOLOGY Appointment Type:ONC Office Visit 20 (FT) [facility] Evaluation noteNo assessment information available [facility] Work Phone: Hospital course Narrative No data available for this section [facility] General Surgery Outing Hospital Discharge instructions No data available for this section [facility] General Surgery Outing Progress note No data available for this section [facility] Summary Purpose Family History No Family History [...] section and content) DATE CREATED AUTHOR 09/08/2021 [facility] DATE CREATED AUTHOR AUTHOR'S ORGANIZ ATION 09/14/2023 [facility] DATE CREATED AUTHOR AUTHOR'S ORGANIZ ATION 09/15/2023 [facility] DATE CREATED AUTHOR AUTHOR'S ORGANIZ ATION 10/05/2023 [facility] DATE CREATED AUTHOR AUTHOR'S ORGANIZ ATION 01/15/2024 [facility] DATE CREATED AUTHOR AUTHOR'S ORGANIZ ATION 11/02/2024 [facility] DATE CREATED AUTHOR AUTHOR'S ORGANIZ ATION 12/17/2024 [facility] Care Team (unrecognized sect ion and content) Team MemberRelationshipSpecialtyStart DateEnd Date Rickey Askew MD [address] [place] [address] PCP - [facility]06/20/22 Rickey Askew MD [address] [place] [address] PCP - [facility]09/19/22 Team Status: Active Member Role Status Scott Rodriguez MD Primary Care Provider Active Team Status: Inactive Member Role Status Scott Caldera II, DO Attending Provider Active Start: May 31, 2023 End: May 31toño Rodriguez [facility] Care ProviderActiveStart: May 31, 2023 End: May [...] 30, 2023 End: December 30, 2023Timleopoldo Caldera [facility] , DOAttending ProviderActive Start: December 30, 2023 End: December 30, 2023Team MemberRelationshipSpecialtyStart DateEnd Date Rickey Askew MD [address] [place] [address] PCP - [facility]06/20/22 Unallocated, Iliana Haskins MD [address] [facility] [place] [address] PCP - [facility]08/14/23Team MemberRelationshipSpecialtyStart DateEnd Date Unallocated, Iliana Haskins MD [address] [facility] [place] [address] PCP - [facility]08/14/23 Team Status: Inactive Member Role Status Dates Mary Rodriguez MD Primary Care Provider Active S tart: April 29, 2024 End: April 29, 2024Timleopoldo Caldera [facility] , DOAttending ProviderActive Start: April 29, 2024 End: April 29, 2024Team MemberRelationshipSpecialtyStart DateEnd Date Unallocated, Iliana Haskins MD [address] [facility] [place] [address] PCP - [facility]08/14/23 Team Status: Inactive Member Role Status Scott Rodriguez MD Primary Care Provider Active S tart: August 17, 2024 End: August 17, 2024Timleopoldo Caldera [facility] , DOAttending ProviderActiveStart: August 17, 2024 End: August 17, 2024 Team Status: Inactive Member Role Status Scott Rodriguez MD Primary Care Provider Active S tart: September 30, 2024 End: September 30, 2024Timleopoldo Caldera [facility] , DOAttending ProviderActiveStart: September 30, 2024 End: September 30, 2024Team MemberRelationshipSpecialtyStart DateEnd Date Unallocated, Nommichelle Haskins MD [address] [place] [address] PCP - GeneralFamily Medicine08/14/23 Goals (unrecognized section [...] BE BASED ON THE PRIMARY CLINICAL RECORDS. [employer] [facility]. provides no warranty or guarantee of the accuracy or completeness of information in this document.
--- OUTSIDE RECORDS SUMMARY | 2025-03-27 10:36 | XMS_ITS | Patient Health Record ---
Author Organization [facility] Address [address] [place] [address] [place] [address] Care Team Providers Care Compounding Technician Name Role Phone Mary Rodriguez Primary Care Provider Gerardo Hernandez Unavailable [phone] Reason For Referral No Information Encounters Encounter Location Date Provider Diagnosis [facility] [address] [place] [address] 04/08/[address] [id number]/[facility] [place] [address]/[address] [id number]/Gerardo Linn Plan Of Treatment No Information Insurance Providers Payer Name Payer Address Payer Phone Subscriber Number Group Number Insured Name Patient Relationship to Insured Coverage Start Date Coverage End Date [facility] [address] [address] [place] [address] [id number] huang - patient is the [id number] 2024[facility] D[facility] [address] [place], [place] [id number], BarbaraSelf - patient is the insured
--- OUTSIDE RECORDS SUMMARY | 2025-03-27 10:36 | XMS_ITS | Clinical Summary ---
Author Organization [facility] Address [address] [place] [address] Phone Care Team Providers Care Manager Educational Name Role Phone Rickey Askew MD Primary Care Prov ider Social History Tobacco UseTypesPacks/DayYears UsedDateSmoking Tobacco: Never Assessed CommentsUnknownSex and Gender InformationValueDate RecordedSex Assigned at Not on fileLegal QzvPyalup40/26/2022 11:26 AM ESTGender IdentityNot on file Sexual OrientationNot on file Last Filed Vital Signs Vital SignReadingTime TakenCommentsBlood Xrncjajk898/6505 1:10 PM EDT Cergn727308/28/2021 1:10 PM ZNWFmprmwuclqp64.8 ??C (98.2 ??F)08/28/2021 1:10 PM EDTRespiratory Zcmt408508/28/2021 1:10 PM EDTOxygen Ythkqwsuge70%08/28/2021 1:10 PM EDTInhaled Oxygen Concentration--Imqzny41.6 kg (217 lb 6 oz)08/28/2021 1:10 PM SMWHbalqi735 cm (5' 2.6 )08/28/2021 1:10 PM EDTBody Mass Npkpc145708/28/2021 1:10 PM EDT Plan of Treatment Not on file Care Teams Team MemberRelationshipSpecialtyStart DateEnd Date Rickey Askew MD [address] [place] [address] PCP - General1/1/22
[2025-03-27 11:02] LABS: Potassium 4.5 mmol/L (3.5-5.1)
== END 2025-03-27 10:30 | disposition home or self-care (01) ==
LOC: LAB 10:29
PROVIDERS: PCP Family Medicine; Visit Provider Family Medicine
DX: E87.5 Hyperkalemia (principal)
CPT/HCPCS: 36415; 84132